=== PATIENT | male | born 1990 | race Caucasian/White ===

== ENCOUNTER 2018-04-14 18:24 | Emergency (ER) | payer OTHER ==
[~2018-04-14] VITALS: Ht 188 cm; Wt 68.0 kg
[2018-04-14] MEDS ORDERED: LISINOPRIL20 MG PO (18:55)
[2018-04-14] MEDS ORDERED: LANTUS100 UNITS/ (18:56)
[2018-04-14] MEDS ORDERED: HUMALOG100 UNIT/2 SUB-Q (18:57)
[2018-04-14] MEDS ORDERED: NORCO 7.5-3251 EACH PO (18:58)
[2018-04-14] MEDS ORDERED: CEPHALEXIN500 MG PO (22:35)
[2018-04-14] MEDS ORDERED: METOPROLOL TART50 MG PO (22:35)
== END 2018-04-14 22:49 | disposition home or self-care (01) ==
LOC: ED 18:24
DX: R11.2 Nausea with vomiting, unspecified (principal); I10 Essential (primary) hypertension; E11.9 Type 2 diabetes mellitus without complications; F17.200 Nicotine dependence, unspecified, uncomplicated; Z88.5 Allergy status to narcotic agent; Z79.4 Long term (current) use of insulin; Z79.899 Other long term (current) drug therapy
CPT/HCPCS: 80053; 81001; 82010; 82800; 85025; 87088; 96361; 96374; 96375; 99284; J0696; J2270; J2405; J7030

== ENCOUNTER 2018-06-28 09:10 | Emergency (ER) | payer OTHER ==
[~2018-06-28] VITALS: Ht 188 cm; Wt 68.0 kg
--- OUTSIDE RECORDS SUMMARY | ~2018-06-28 | XMS | Encounter Summary ---
Demographics + + + | Address | [address] | | | [place] [address] | + + + | Home Phone | | + + + | Preferred Language | Unknown | + + + | Marital Status | Unknown | + + + | Episcopal Affiliation | Unknown | + + + | Race | Unknown | + + + | Ethnic Group | Unknown | + + + Author + + + | Author | [facility] | + + + | Organization | [facility] | + + + | Address | Unknown | + + + | Phone | Unavailable | + + + Support + + +---------+ + | Name | Relationship | Address | Phone | + + +---------+ + | Gia Ramos | ECON | Unknown | | + + +---------+ + Care Team Providers + +------+ + | Care Synthetic Department Supervisor Name | Role | Phone | + +------+ + | Erich Yates | PCP | | + +------+ + Encounter Details +--------+ + + + + | Date | Type | Department | Care Team | Description | +--------+ + + + + | 06/16/ | Orders Only | [facility] | Shannan Morales CMA | Chronic kidney | | 2018 | | [address] | | disease, stage III | | | | [address] | | (moderate) (Primary | | | | [place] [address] | | Dx) | | | | [phone] | | | +--------+ + + + [...] on file | | + + + as of this encounter Plan of Treatment +--------+ + + + + | Date | Type | Specialty | Care Team | Description | +--------+ + + + + | 07/25/ | Initial | Nephrology | Winston Whitman MD | | | 2018 | consult | | [address] | | | | | | [address] [place], [place] | | | | | | [address] | | | | | | | | +--------+ + + + + + +--------+ + + | Name | Priori | Associated Diagnoses | Order Schedule | | | ty | | | + +--------+ + + | Basic metabolic panel | Routin | Chronic kidney | Expected: | | | e | disease, stage III | 07/17/2018, Expires: | | | | (moderate) | 06/16/2019 | + +--------+ + + | CBC W/Auto Diff (Reflex to | Routin | Chronic kidney | Expected: | | Manual) | e | disease, stage III | 07/17/2018, Expires: | | | | (moderate) | 06/16/2019 | + +--------+ + + | Protein / creatinine ratio, urine | Routin | Chronic kidney | Expected: | | | e | disease, stage III | 07/17/2018, Expires: | | | | (moderate) | 06/16/2019 | + +--------+ + + | Uric acid | Routin | Chronic kidney | Expected: | | | e | disease, stage III | 07/17/2018, Expires: | | | | (moderate) | 06/16/2019 | + +--------+ + + | Urinalysis (reflex to micro) | Routin | Chronic kidney | Expected: | | | e | disease, stage III | 07/17/2018, Expires: | | | | (moderate) | 06/16/2019 | + +--------+ + + as of this encounter Visit Diagnoses + + | Diagnosis | + + | Chronic kidney disease, stage III (moderate) (HCC) - Primary | + + | Chronic kidney disease, Stage III (moderate) | + +"
--- OUTSIDE RECORDS SUMMARY | ~2018-06-28 | XMS | Encounter Summary ---
Demographics + + + | Address | [address] | | | [place] [address] | + + + | Home Phone | | + + + | Preferred Language | Unknown | + + + | Marital Status | Unknown | + + + | Religion Affiliation | Unknown | + + + | Race | Unknown | + + + | Ethnic Group | Unknown | + + + Author + + + | Author | [facility] | + + + | Organization | [facility] | + + + | Address | Unknown | + + + | Phone | Unavailable | + + + Support + + +---------+ + | Name | Relationship | Address | Phone | + + +---------+ + | Gia Ramos | ECON | Unknown | | + + +---------+ + Care Team Providers + +------+ + | Care Market Development Specialist Name | Role | Phone | + +------+ + | Erich Yates | PCP | | + +------+ + Reason for Visit +--------+ + | Reason | Comments | +--------+ + | Other | Referral from Savage Yates PA-C | +--------+ + Encounter Details +--------+ + + + + | Date | Type | Department | Care Team | Description | +--------+ + + + + | 06/01/ | Documentati | [facility] | Winston Whitman MD | Other (Referral from | | 2018 | on Only | [address] | [address] | Savage Yates | | | | [address] | [address] [place], [place] | [place]) | | | | [place] [address] | [address] | | | | | [phone] | | | +--------+ + + + [...] | | | | | | [address] [place] | | | | | | [address] | | | | | | | | +--------+ + + + + as of this encounter Visit Diagnoses Not on filein this encounter"
--- OUTSIDE RECORDS SUMMARY | ~2018-06-28 | XMS | Encounter Summary ---
Demographics + + + | Address | [address] | | | [place] [address] | + + + | Home Phone | | + + + | Preferred Language | Unknown | + + + | Marital Status | Unknown | + + + | Latter Day Affiliation | Unknown | + + + | Race | Unknown | + + + | Ethnic Group | Unknown | + + + Author + + + | Author | [facility] | | | and [place]ana | + + + | Organization | [facility] | | | and [place] | + + + | Address | Unknown | + + + | Phone | Unavailable | + + + Care Team Providers + +------+ + | Care Lacemaker Name | Role | Phone | + +------+ + | Erich Yates | PCP | | + +------+ + Encounter Details +--------+ + + + + | Date | Type | Department | Care Team | Description | +--------+ + + + + | 05/15/ | Abstract | [facility] | Divya, | | | 2017 | | GASTROENTEROLOGY | MD [address] | | | | | [address] [facility] | Hillary BOBBY | | | | | [address] [place], [place] | [place] [address] | | | | | [address] | | | | | | [phone] | | | +--------+ + + + [...] this encounter Plan of Treatment Not on fileas of this encounter Visit Diagnoses Not on filein this encounter"
--- OUTSIDE RECORDS SUMMARY | ~2018-06-28 | XMS | Clinical Summary ---
Demographics + + + | Address | [address] | | | [place] [address] | + + + | Home Phone | | + + + | Preferred Language | Unknown | + + + | Marital Status | Unknown | + + + | Mormon Affiliation | Unknown | + + + | Race | Unknown | + + + | Ethnic Group | Unknown | + + + Author + + + | Author | [facility] | | | and Mauriceana | + + + | Organization | [facility] | | | and [facility] | + + + | Address | Unknown | + + + | Phone | Unavailable | + + + Care Team Providers + +------+ + | Care Shelter Director Name | Role | Phone | + [...] | | + + +-------+---------+------+------+-------+ | insulin lispro | Inject under the | | | | | Activ | | (HUMALOG [...] | | | + + +-------+---------+------+------+-------+ | phytonadione | Take 100 mcg by | | | | | Activ | | (PHYTONADIONE) 100 | mouth 2 times daily. | | | | | e | | MCG TABS | | | | | | | + + +-------+---------+------+------+-------+ | insulin glargine | Inject 40 Units | | | | | Activ | | (LANTUS SOLOSTAR) | under the skin | | | | | e | | 100 units/mL | nightly. | | | | | | | injection (pen) | | | | | | | + + +-------+---------+------+------+-------+ | Furosemide (LASIX | Take 1 tablet by | | | | | Activ | | PO) | mouth 2 times daily. | | | | | e | + + +-------+---------+------+------+-------+ | metoprolol | Take 50 mg by mouth | | | | | Activ | | tartrate (LOPRESSOR) | 2 times daily. | | | | | e | | 50 mg tablet | | | | | | | + + +-------+---------+------+------+-------+ | ondansetron | Take 8 mg by mouth | | | | | Activ | | (ZOFRAN ODT) 8 mg | every 8 hours as | | | | | e | | disintegrating | needed for Nausea. | | | | | | | tablet | | | | | | | + + +-------+---------+------+------+-------+ Active Problems Not on file Encounters +--------+ + + + + | Date | Type | Specialty | Care Team | Description | +--------+ + + + + | 05/15/ | Abstract | | Provider, | | | 2018 | | | Historical, MD | | +--------+ + + + + from Last 3 Months Family History + + + + + [...] + + + + + | Congenital Heart | Other | [place] | | | Disease | | her | | + + [...] + + +--------+ + Social History + +-------+ +--------+------+ | [...] on file | | + + + Plan of Treatment + + + + + | Health Maintenance | Due Date | Last Done | Comments | + + + + + | Vaccine: | | | | | Dtap/Tdap/Td (1 - | 9 | | | | Tdap) | | | | + + + + + | Vaccine: | | | | | Pneumococcal 19-64 | 9 | | | | (PPSV23 only) Medium | | | | | Risk (1 of 1 - | | | | | PPSV23) | | | | + + + + + | Vaccine: Influenza | | | | | (#1) | 8 | | | + + + + + Results Not on filefrom Last 3 Months Insurance + +--------+ +--------+ +---------+ | Payer | Benefi | Subscriber | Type | Phone | Address | | | t Plan | ID | | | | | | / | | | | | | | Group | | | | | + +--------+ +--------+ +---------+ | [employer] | MODA | [id number] | Medica | [phone] | | MEDICAID HMO | HEALTH | | id | [id number] | | | | [place] | | | | | | | [place] | | | | | + +--------+ +--------+ +---------+ + +--------+ +--------+ + + | Guarantor Name | Accoun | Relation to | Date | Phone | Billing Address | | | t Type | Patient | of | | | | | | | | | | + +--------+ +--------+ + + | NGOC MARQUEZ | Person | Self | [birth year] | Home: | [address] | | | al/Fam | | 1990 | [phone] | [address] [place] | | | [place] | | | [phone] | [address] | + +--------+ +--------+ + +"
--- OUTSIDE RECORDS SUMMARY | ~2018-06-28 | XMS | Encounter Summary ---
Demographics + + + | Address | [address] | | | [place] [address] | + + + | Home Phone | | + + + | Preferred Language | Unknown | + + + | Marital Status | Unknown | + + + | Buddhism Affiliation | Unknown | + + + | Race | Unknown | + + + | Ethnic Group | Unknown | + + + Author + + + | Author | [facility] | + + + | Organization | [facility] | + + + | Address | Unknown | + + + | Phone | Unavailable | + + + Support + + +---------+ + | Name | Relationship | Address | Phone | + + +---------+ + | Gia Ramos | ECON | Unknown | | + + +---------+ + Care Team Providers + +------+ + | Care Health Care Coach Name | Role | Phone | + [...] | [address] | [address] [place], [place] | [place]) | | | | [place] [address] | [address] | | | | | [phone] | | | +--------+ + + + [...] [place] | | | | | | [address] | | | | | | | | +--------+ + + + + as of this encounter Visit Diagnoses Not on filein this encounter"
--- OUTSIDE RECORDS SUMMARY | ~2018-06-28 | XMS | Clinical Summary ---
Demographics + + + | Address | [address] | | | [place] [address] | + + + | Home Phone | | + + + | Preferred Language | Unknown | + + + | Marital Status | Unknown | + + + | Jain Affiliation | Unknown | + + + | Race | Unknown | + + + | Ethnic Group | Unknown | + + + Author + + + | Author | [facility] | + + + | Organization | [facility] | + + + | Address | Unknown | + + + | Phone | Unavailable | + + + Support + + +---------+ + | Name | Relationship | Address | Phone | + + +---------+ + | Gia Ramos | ECON | Unknown | | + + +---------+ + Care Team Providers + +------+ + | Care Agricultural Service Worker Name | Role | Phone | [...] + | 06/16/ | Orders Only | | Shannan Morales CMA | Chronic kidney | | 2018 | | | | disease, stage III | | | | | | (moderate) (Primary | | | | | | Dx) | +--------+ + + + + | 06/01/ | Documentati | | Winston Whitman MD | Other (Referral from | | 2017 | on Only | | | Savage Yates | | | | | | [place]) | +--------+ + + + + from Last 3 Months Social History + +-------+ +--------+------+ | Tobacco [...] | + + + Plan of Treatment +--------+ + + + + | Date | Type | Specialty | Care Team | Description | +--------+ + + + + | 07/25/ | Initial | | Winston Whitman MD | | | 2017 | consult | | [address] [...] | CBC W/AUTO DIFF | Routin | 05/15/2018 | | Results for this | | (REFLEX TO MANUAL) | e | 1:45 PM | | procedure are in the | | | | PDT | | results section. | + +--------+ + + + from Last 3 Months Results Albumin/Creat Ratio (05/24/2018 9:25 AM) + + + + + | Component | Value | Ref Range | Performed At | + + + + + | ALBUMIN/CREAT RATIO | 2,275.2 (A) | 0 - 30 | [facility] | | | | | LABORATORY | + + + + + + + | Specimen | + + | Urine | + + + + + + + | Performing | Address | City/State/Zipcode | Phone Number | | Organization | | | | + + + + + | [facility] | [address] | [place] [address] | | | LABORATORY | 13 | | | + + + + + Urine microscopic only (05/24/2018 9:25 AM) + + + + + | Component | Value | Ref Range | Performed At | + + + + + | COLOR UA | Yellow | | [facility] | | | | | LABORATORY | + + + + + | CLARITY | Clear | | [facility] | | | | | LABORATORY | + + + + + | Specific [place], UA | 1.013 | 1.005 - 1.030 | [facility] | | | | | LABORATORY | + + + + + | LEUKOCYTE ESTERASE | Trace | | [facility] | | | | [...] + | BLOOD | Negative | | [facility] | | | | | LABORATORY | + + + + + | KETONES | Negative | | [facility] | | | | | LABORATORY | + + + + + | BILIRUBIN | Negative | | [facility] | | | | | LABORATORY | + + + + + | GLUCOSE | Negative | | [facility] | | | | | LABORATORY | + + + + + + + | Specimen | + + | Urine | + + + + + | Narrative | Performed At | + + + | Casts: Hyaline 1+ WBC's: 5 RBC's: 5 Epithelial: Squamous 1+ | [facility] | | | LABORATORY | + + + + + + + + | Performing | Address | City/State/Zipcode | Phone Number | | Organization | | | | + + + + + | [facility] | [address] | [place] [address] | | | LABORATORY | 13 | | | + + + + + CBC W/Auto Diff (Reflex to Manual) (05/24/2018 9:25 AM)Only the most recent of 2 results w ithin the time period is included. + + + + + | Component | Value | Ref Range | Performed At | + + + + + | WBC | 9.1 | 4.5 - 11.0 10^3/mL | [facility] [...] + + + + | HCT | 36.3 (A) | 41 - 50 [...] 32 | 30 - 36 g/dL | [facility] | | | | | LABORATORY | + + + + + | PLT | 244 | 140 - 440 K/ L | [facility] | | | | | LABORATORY | + + + + + | RDW SD | 14.6 | 10.5 - 15.0 % | [facility] | | | | | LABORATORY | + + + + + | MPV | | fL | [facility] | | | | | LABORATORY | + + + + + | DIFF TYPE | | | [facility] | | | | | LABORATORY | + + + + + | NEUTROPHILS | | % | [facility] | | | | | LABORATORY | + + + + + | LYMPHOCYTES | | % | [facility] | | | | | LABORATORY | + + + + + | MONOCYTES | | % | [facility] | | | | | LABORATORY | + + + + + | EOSINOPHILS | | % | [facility] | | | | | LABORATORY | + + + + + | BASOPHILS | | % | [facility] | | | | [...] [facility] | [address] | [place] [address] | | | LABORATORY | 13 | | | + + + + + Comprehensive metabolic panel (05/24/2018 9:25 AM)Only the most recent of 2 results within the time period is included. + + + + + | Component | Value | Ref Range | Performed At | + + + + + | GLUCOSE | 98 | 70 - 100 mg/dL | [facility] | | | | | LABORATORY | + + + + + | BUN | 45 (A) | 6 - 23 mg/dL | [facility] | | | | | LABORATORY | + + + + + | CREATININE | 1.44 (A) | 0.6 - 1.35 mg/dL | [facility] | | | | | LABORATORY | + + + + + | BUN/CREAT | 31.3 (A) | 6.0 - 28.6 | [facility] | | | | | LABORATORY | + + + + + | CALCIUM | 9.3 | 8.5 - 10.3 mg/dL | [facility] | | | | | LABORATORY | + + + + + | TOTAL PROTEIN | 6.2 | 6.0 - 8.3 g/dL | [facility] | | | | | LABORATORY | + + + + + | Albumin | 3.3 (A) | 3.5 - 5.0 | [facility] | | | | | LABORATORY | + + + + + | GLOBULIN | 2.9 | 1.8 - 3.5 | [facility] | | | | | LABORATORY | + + + + + | A/G | 1.1 | 1.1 - 2.4 | [facility] | | | | | LABORATORY | + + + + + | TBIL | 0.3 | 0.0 - 1.2 mg/dL | [facility] | | | | | LABORATORY | + + + + + | ALK PHOS | 77 | 31 - 120 | [facility] | | | | | LABORATORY | + + + + + | ALT | 13 | 7 - 52 U/L | [facility] | | | | | LABORATORY | + + + + + | AST | 19 | 13 - 39 U/L | [facility] | | | | | LABORATORY | + + + + + | SODIUM | 139 | 132 - 143 mmol/L | [facility] | | | | | LABORATORY | + + + + + | POTASSIUM | 4.8 | 3.6 - 5.1 mmol/L | [facility] | | | | | LABORATORY | + + + + + | CHLORIDE | 102 | 95 - 112 mmol/L | [facility] | | | | | LABORATORY | + + + + + | CO2 | 24 | 19 - 31 mmol/L | [facility] | | | | | LABORATORY | + + + + + | ANION GAP AGAP | 17.8 | 7 - 21 mmol/L | [facility] | | | | | LABORATORY | + + + + + | EGFR | 58 (A) | 60 mg/dL | [facility] | | | | | LABORATORY | + + + + + + + | Specimen | + + | Blood | + + + + + + + | Performing | Address | City/State/Zipcode | Phone Number | | Organization | | | | + + + + + | [facility] | [address] | [place] [address] | | | LABORATORY | 13 | | | + + + + + Glycohemoglobin A1c (05/15/2018 1:45 PM) + +-------+ + + | Component | Value | Ref Range | Performed At | + +-------+ + + | HEMOGLOBIN A1C | 9.8 | % | [facility] | | | | | LABORATORY | + +-------+ + + + + | Specimen | + + | Blood | + + + + + + + | Performing | Address | City/State/Zipcode | Phone Number | | Organization | | | | + + + + + | [facility] | [address] | [place] [address] | | | LABORATORY | 13 | | | + + + + + from Last 3 Months Insurance + +--------+ +------+-------+ + | Payer | Benefi | Subscriber | Type | Phone | Address | | | t Plan | ID | | | | | | / | | | | | | | Group | | | | | + +--------+ +------+-------+ + | MEDICAID | [employer] | [id number] | | | [address] | | | N | | | | [place], [place] | | | [place] | | | | [address] | | | OPERATIONS REPRESENTATIVE | | | | | + +--------+ [...] Self | [birth year] | Home: | [address] | | | al/Fam | | 1990 | [phone] | [address] [place], | | | lucian | | | 1953 | [place] [address] | + +--------+ +--------+ + +"
--- OUTSIDE RECORDS SUMMARY | ~2018-06-28 | XMS | Clinical Summary ---
Demographics + + + | Address | [address] | | | [place] [address] | + + + | Home Phone [...] | + + + + + | GLORIA JOHNSON | ECON | [address] | | | | | [place] | | | | | [address] | | + + + + + Care Team Providers + +------+ + | Care Earth Auger Operator Name | Role | Phone | + +------+ + | Erich Yates PA-C | PP | | + +------+ + Source Comments VERITO is fully live on both [facility] and [facility] InPatient.[facility] Allergies + + + + + + | Active Allergy | Reactions | Severity | Noted | Comments | | | | | Date | | + + + + + + | Codeine | Nausea and Vomiting | | 12/06/19 | | | | | | 03 | | + + + + + + Current Medications + + + +---------+------+------+-------+ | Prescription | Sig. | Disp. | [...] U-100 | recommended by | | | 03/15 | | e | | (BD ULTRAFINE [...] Take 40 mg by mouth | | | | | Activ | | oral capsule,delayed | once daily. | | | | | e | | release(DR/EC) | | | | | | | + + + +---------+------+------+-------+ | ondansetron ODT 8 | Dissolve 8 mg in | | | | | Activ | | mg oral | mouth every twelve | | | | | e | | tablet,disintegratin | hours as needed. | | | | | | | g | | | | | | | + + + +---------+------+------+-------+ | metoclopramide HCl | Take 10 mg by mouth | | | | | Activ | | 10 [...] day in divided doses | | | 20 | | e | | unit/mL subcutaneous | as directed | | | 15 | | | | solution | | | | | | | + + + +---------+------+------+-------+ Active Problems + + + | Problem | Noted Date | + + + | Hyperglycemia due to type 1 diabetes mellitus (HCC) | 09/17/2015 | + + + | Hypertension | 08/27/2015 | + + + | Diabetic gastroparesis associated with type 1 diabetes mellitus | 08/27/2015 | | (HCC) | | + + + | Acute on chronic epigastric pain | 08/26/2015 | + + + | Fissure in skin of foot | 08/26/2015 | + + + | Diabetic ketoacidosis without coma associated with type 1 | 08/25/2015 | | diabetes mellitus (HCC) | | + + + | Type 1 diabetes mellitus ([facility]) | 11/03/2006 | + + + + [...] | 5 | + + + + Social History + [...] Pressure | 126/64 | 09/15/2015 9:42 AM PST | + + + + | Pulse | 110 | 09/15/2015 9:42 AM PST | + + + + | Temperature | 36.7 C (98.1 F) | 08/27/2015 12:34 PM PST | + + + + | Respiratory Rate | 18 | 08/27/2015 12:34 PM PST | + + + + | Oxygen Saturation | 99% | 08/27/2015 12:34 PM PST | + + + + | Inhaled Oxygen | - | - | | Concentration | | | + + + + | Weight | 69.4 kg (153 lb 1.6 | 09/15/2015 9:42 AM PST | | | oz) | | + + + + | Height | 188 cm (6' 2") | 09/15/2015 9:42 AM PST | + + + + | Body Mass Index | 19.66 | 09/15/2015 9:42 AM PST | + + + + Plan of Treatment + + + + + | Health Maintenance | Due Date | Last Done | Comments | + + + + + | DIABETES | | | | | SELF-MANAGEMENT | 0 | | | | EDUCATION | | | | + + + + + | MONOFILAMENT FOOT | | | | | EXAM | 0 | | | + + + + + | DIABETIC EYE EXAM | | | | | | 0 | | | + + + + + | HEMOGLOBIN A1C | | 11/01/2007, 11/02/2006, | | | | 8 | 08/27/2005, Additional history | | | | | exists | | + + + + + | Pneumococcal (Adult) | | | | | (1 of 1 - PPSV23) | 9 | | | + + + + + | URINE MICROALBUMIN | | 11/26/2015, 11/02/2006 | | | | 7 | | | + + + + + | CREATININE | | 12/03/2015, 11/21/2015, | | | | 7 | 10/27/2015, Additional history | | | | | exists | | + + + + + | INFLUENZA VACCINE | | | | | (FLU SHOT) | 8 | | | + + + + + | CHOLESTEROL | | 08/26/2015 | | | SCREENING | 0 | | | + + + + + Results Not on filefrom Last 3 Months Insurance + +--------+ +--------+-------+---------+ | Payer | Benefi | Subscriber | Type | Phone | Address | | | t Plan | ID | | | | | | / | | | | | | | Group | | | | | + +--------+ +--------+-------+---------+ | ASSET PROTECTION REPRESENTATIVE MEDICAID | ASSET PROTECTION REPRESENTATIVE | [id number] | Medica | | | | | [place] | | id | | | | | [place] | | | | | + +--------+ +--------+-------+---------+ + +--------+ +--------+ + + | Guarantor Name | Accoun | Relation to | Date | Phone | Billing Address | | | t Type | Patient | of | | | | | | | | | | + +--------+ +--------+ + + | BROOKS MARQUEZ II | Person | Self [birth year] | Home: | [address] | | [place] | andreea/Fam | | 1990 | [phone] | [address] [place] | | | [place] | | | [phone] | [phone] | + +--------+ +--------+ + +
--- OUTSIDE RECORDS SUMMARY | ~2018-06-28 | XMS | Clinical Summary ---
Demographics + + + | Address | [address] | | | [place] [address] | + + + | Home Phone | | + + + | Preferred Language | Unknown | + + + | Marital Status | Unknown | + + + | Orthodox Affiliation | Unknown | + + + | Race | Unknown | + + + | Ethnic Group | Unknown | + + + Author + + + | Author | [facility] | | | and [place] | + + + | Organization | [facility] | | | and [place] | + + + | Address | Unknown | + + + | Phone | Unavailable | + + + Care Team Providers + +------+ + | Care Ethnic Origins Teacher Name | Role | Phone | [...] | [employer] | [employer] | [id number] | Medica | [phone] | | MEDICAID HMO | HEALTH [...] | [birth year] | Home: | [address] | | | al/Fam | | 1990 | [phone] | [address] [place] | | | [place] | | | [phone] | [phone] | + +--------+ +--------+ + +"
--- OUTSIDE RECORDS SUMMARY | ~2018-06-28 | XMS | Clinical Summary ---
Demographics + + + | Address | [address] | | | [place] [address] | + + + | Home Phone | | + + + | Preferred Language | Unknown | + + + | Marital Status | Unknown | + + + | Mormonism Affiliation | Unknown | + + + | Race | Unknown | + + + | Ethnic Group | Unknown | + + + Author + + + | Author | [facility] | + + + | Organization | [facility] | + + + | Address | Unknown | + + + | Phone | Unavailable | + + + Support + + +---------+ + | Name | Relationship | Address | Phone | + + +---------+ + | Gia Ramos | ECON | Unknown | | + + +---------+ + Care Team Providers + +------+ + | Care Bulk Clerk Name | Role | Phone | [...] | [address] | [place] [address] | | | LABORATORY | 13 | [...] + + + + + | Specific [place], UA | 1.013 | 1.005 - 1.030 [...] | [address] | [place] [address] | | | LABORATORY | 13 | [...] | [address] | [place] [address] | | | LABORATORY | 13 | [...] | [address] | [place] [address] | | | LABORATORY | 13 | [...] | [address] | [place] [address] | | | LABORATORY | 13 | [...] +------+-------+ + | MEDICAID | EASTER | [id number] | | | [address] | | | N | | | | [place], [place] | | | [place] | | | | [address] | | | [employer] | | | | | + +--------+ [...] Self | [birth year] | Home: | [address] | | | al/Fam | | 1990 | [phone] | [address] [place], | | | [place] | | | [address] | [place] [address] | + +--------+ +--------+ + +"
--- OUTSIDE RECORDS SUMMARY | ~2018-06-28 | XMS | Clinical Summary ---
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 | Role | Phone | + +------+ + | Erich Yates PA-C | PP | | + +------+ + Source Comments VERITO is fully live on both [facility] and [facility] InPatient.[facility] Allergies + + + + + [...] + + | Type 1 diabetes mellitus ([facility]) | 11/03/2006 | + + + + [...] | | | + +--------+ +--------+-------+---------+ | MATERIAL CHASER MEDICAID | MATERIAL CHASER | xxxxxxxx | Medica | | | [...] Self | [birth year] | Home: | [address] | | [place] | andreea/Fam | | 1990 | [phone] | [address] [place] | | | lucian | | | [phone] | + +--------+ +--------+ + +
--- OUTSIDE RECORDS SUMMARY | ~2018-06-28 | XMS | Encounter Summary ---
Demographics + + + | Address | [address] | | | [place] [address] | + + + | Home Phone | | + + + | Preferred Language | Unknown | + + + | Marital Status | Unknown | + + + | Yazidism Affiliation | Unknown | + + + | Race | Unknown | + + + | Ethnic Group | Unknown | + + + Author + + + | Author | [facility] | | | and [place] | + + + | Organization | [facility] | | | and [place] | + + + | Address | Unknown | + + + | Phone | Unavailable | + + + Care Team Providers + +------+ + | Care Casual Shoe Inspector Name | Role | Phone | + +------+ + | Erich Yates | PCP | | + +------+ + Encounter Details +--------+ + + + + | Date | Type | Department | Care Team | Description | +--------+ + + + + | 05/15/ | Abstract | [facility] | Divya, | | | 2017 | | GASTROENTEROLOGY | MD Vah[address] | | | | | [address] [facility] | Hillary BOBBY | | | | | [address] [place], [place] | [place] [address] | | | | | [address] | | | | | | [phone] | | | +--------+ + + + [...]
--- OUTSIDE RECORDS SUMMARY | ~2018-06-28 | XMS | Encounter Summary ---
Demographics + + + | Address | [address] | | | [place] [address] | + + + | Home Phone | | + + + | Preferred Language | Unknown | + + + | Marital Status | Unknown | + + + | Mormonism Affiliation | Unknown | + + + | Race | Unknown | + + + | Ethnic Group | Unknown | + + + Author + + + | Author | [facility] [employer] [facility] | + + + | Organization | [facility] | + + + | Address | Unknown | + + + | Phone | Unavailable | + + + Support + + +---------+ + | Name | Relationship | Address | Phone | + + +---------+ + | Gia Ramos | ECON | Unknown | | + + +---------+ + Care Team Providers + +------+ + | Care Mechanic'S Assistant Name | Role | Phone | [...] (Primary | | | | [place] [address] | | Dx) | | | | [phone] | | | +--------+ + + + [...] | | | | | | [address] [place], [place] | | | | | | [address] | | | | | | | [...]
[~2018-06-28 09:10] MED LIST: CEPHALEXIN500 MG PO; HUMALOG100 UNIT/2 SUB-Q; LANTUS100 UNITS/; LISINOPRIL20 MG PO; METOPROLOL TART50 MG PO; NORCO 7.5-3251 EACH PO; OMEPRAZOLE20 MG PO; PRINIVIL10 MG PO
[2018-06-28] MEDS ORDERED: ZANTAC150 MG PO (09:23)
== END 2018-06-28 09:30 | disposition home or self-care (01) ==
LOC: ED 09:10
DX: L98.9 Disorder of the skin and subcutaneous tissue, unspecified (principal)

== ENCOUNTER 2018-10-29 15:33 | Inpatient (IN) | payer OTHER ==
[~2018-10-29] VITALS: Ht 188 cm; Wt 65.9 kg
[~2018-10-29 15:33] MED LIST changes: +FLOMAX0.4 MG PO; +ZANTAC150 MG PO; +ZOFRAN4 MG PO
--- OUTSIDE RECORDS SUMMARY | 2018-10-29 15:36 | XMS ---
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: Unknown ROSA JASSO [facility] Current PHONE: Unknown Marlena has no Care Guidelines for this patient. Care History Medical/Surgical 05/01/2018 [facility] referred patient to [facility] case management team. - Further education on medications/chronic pain education is needed. - [facility] case management can be reached at [phone]. E.D. VISIT COUNT (12 MO.) 6 [facility] Perez TOTAL 6 NOTE: Visits indicate total known visits. 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 - Calculus of kidney with calculus of ureter 09/13/2018 05:35 [facility] [place] TYPE: Emergency COMPLAINT: - R FLANK PAIN DIAGNOSES: - 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 - Essential (primary) hypertension - Allergy status to narcotic agent status - Other nursing home (current) drug therapy - Type 1 diabetes mellitus without complications - Hydronephrosis with renal and ureteral calculous obstruction - Chronic pain syndrome - Unspecified abdominal pain - Nicotine dependence, unspecified, uncomplicated 06/28/2018 09:10 [facility] [place] TYPE: Emergency COMPLAINT: - POSS INFECTION/WOUND CHECK NON INJURY DIAGNOSES: - Disorder of the skin and subcutaneous tissue, unspecified 04/28/2018 11:27 [facility] [place] TYPE: Emergency COMPLAINT: - ABD PAIN DIAGNOSES: - 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
[2018-10-29] MEDS ORDERED: CEFUROXIME500 MG PO (16:21)
[2018-10-29] MEDS ORDERED: CLEOCIN HCL300 MG PO (16:21)
--- NOTE | 2018-10-29 22:09 | NUR ---
10/29/182208 Beth Johnson 1584 PT ARRIVED IN PACU WIDE AWAKE. BLOOD SUGAR ON ARRIVAL 152. SPINAL LEVEL L-2. NO C/O'S.
--- NOTE | 2018-10-29 22:45 | NUR ---
PT ARRIVED TO UNIT VIA STRETCHER FROM PACU. PT A&O X4, NOTED TO BE WITHDRAWN, STATES "I'M TRYING TO PROCESS EVERYTHING." PT HYPERTENSIVE AT 159/104 AND IN SINUS TACH AT 111. RESPIRATION EVEN AND SHALLOW, SPO2 100% ON ROOM AIR, LUNG SOUNDS CLEAR THROUGHOUT. BOWEL TONES ACTIVE X4, PT NOTED TO BE INCONTINENT OF STOOL IN PACU, ATTEND IN PLACE, DENIES NAUSEA. REPORTS NUMBESS TO BLE. RLE NOTED TO HAVE SLIGHT REDDNESS IN UPPER THIGH THAT APPEARS TO BE RESOLVING, NO EDEMA NOTED. SURGICAL SITE COVERED WITH ABD PAD, CAST PADDING, AND HANS WRAP. HANS WRAP PULLED TO SIDE FOR ASSESSMENT, DRESSING C/D/I. DENIES PAIN AT THIS TIME. EDUCATION PROVIDED ON PAIN MANAGEMENT. UPDATED ON PLAN OF CARE, ALL QUESTIONS ANSWERED. ORIENTED TO ROOM AND CALL LIGHT. DENIES OTHER NEEDS.
--- NOTE | 2018-10-29 23:30 | NUR ---
PT RESTING IN BED WITH EYES CLOSED, RESPIRATIONS EVEN AND SHALLOW, 100% ON ROOM AIR. NO ACUTE DISTRESS NOTED.
--- NOTE | 2018-10-30 00:45 | NUR ---
CALL LIGHT ANSWERED, PT C/O 05/05 CONSTANT ACHE/CRAMP RLE PAIN, 0.5 MG IV DILAUDID GIVEN. SURGICAL SITE ASSESSED, HANS WRAP PULLED BACK, CASTING PADDING C/D/I, NO EDEMA OR INCREASED REDDNESS NOTED. WILL CONTINUE TO MONITOR.
--- NOTE | 2018-10-30 01:34 | NUR ---
PT STATES PAIN NOT IMPROVED AFTER 0.5 MG IV DILAUDID, ADDITIONAL 0.5 MG DILAUDID GIVEN. WILL CONTINUE TO MONITOR. ICE PACK IN PLACE.
--- NOTE | 2018-10-30 02:22 | NUR ---
IN TO GIVE PT BELKIS MEDS GABAPENTIN AND TYLENOL PO. C/O 05/05 THROBBING RIGHT LEG PAIN. 0.5 IV DILAUDID GIVEN. INSULIN ALSO GIVEN FOR BLOOD SUGAR 142.
--- NOTE | 2018-10-30 03:00 | NUR ---
PT CONTINUES TO HAVE 8/10 RLE PAIN. SEVERAL DOSES OF 0.5 MG DILAUDID GIVEN WITHOUT RELIEF. EDUCATION PROVIDE DON MANAGEMENT. PT AGREABLE TO DRINK ENSURE AND TAKE PO MEDICATION. 10 MG OXYCODONE GIVEN WITH ENSURE. WILL CONTINUE TO MONITOR FOR NAUSEA AND PAIN.
--- NOTE | 2018-10-30 04:30 | NUR ---
PT DENIES IMPROVEMENT IN PAIN. REQUESTING TO USE BSC. PT 2PA TO BSC, DID NOT TOLERATE WELL. CALL LIGHT WITHIN REACH.
--- NOTE | 2018-10-30 05:05 | NUR ---
PT ASSISTED TO BSC WITH MAX 2 PERSON ASSIST. PT HAD LARGE LOOSE SEMI LIQ STOOL, NO VOID. ASSISTED BACK TO BED WITH PT USING WALKER WITH BETTER RESULTS. C/O PAIN R LEG 8/10. GIVEN 0.5MG DILAUDID IV.
--- NOTE | 2018-10-30 06:00 | NUR ---
PT HAS NOT VOIDED, ATTEMPTED TO USE URINAL, UNABLE TO VOID. BLADDER SCAN COMPLETED, 625ML NOTED. PHONE TO DR. CAROLINA. PER PROVIDER, BROWN TO BE PLACED IF UNABLE TO VOID.
--- NOTE | 2018-10-30 07:30 | NUR ---
PT RESTING IN BED WITH HIS MOTHER AT THE BEDSIDE. PT IS EMOTIONAL AT TIMES. PT CALLS APPROPRAITELY. WILL CONTINUE TO CLOSELY MONITOR.
--- NOTE | 2018-10-30 08:00 | NUR ---
PT ASSESSMENT COMPLETED. PT WOUND IS C/D/I. WILL LEAVE DRESSING ON PER MD BAGLEY. PT IS WITHDRAWN AT TIMES. PT IS ABLE TO MOVE HIS LEFT LEG WITH NO ISSUES AND MINIMAL MOVEMNET OF RIGHT ABOVE KNEE MOVEMENT D/T PAIN. WILL GIVE PRN PAIN MEDICATION. SPOKE WITH PT ABOUT GETTING A BROWN. PT IS THINKING ABOUT IT AT THIS TIME. WILL ALLOW SOME TIME TO PROCESS SITUATION.
--- NOTE | 2018-10-30 09:30 | OR ---
[facility] [address] [place], [place] [address] Signed DATE OF OPERATION: 10/29/2018 SURGEON: Stefano Wong MD PREOPERATIVE DIAGNOSIS: Necrotizing fasciitis, right foot and ankle. POSTOPERATIVE DIAGNOSIS: Necrotizing fasciitis, right foot and ankle. PROCEDURE PERFORMED: Right below-knee amputation. ANESTHESIA: General. SPECIMENS: Amputated right lower leg. COMPLICATIONS: There were no intraoperative complications. BLOOD LOSS: Minimal. TOURNIQUET TIME: About 45 minutes. WHAT WAS DONE: The patient was taken to the operating room. After anesthesia was induced and airway secured, the patient was positioned, prepped and draped in a routine sterile fashion. The leg was mapped out and we outlined a 5-3/4 inch bony stump off the medial tibial plateau. We then marked the leg with equal anterior and posterior flaps off this 5-3/4 inch bony stump. We then made a skin incision anteriorly and posteriorly. The anterior skin flap was then retracted to the level of the intended bony resection. We passed a curved clamp underneath the anterior compartment muscles and divided them with electrocautery. The anterior interosseous nerve, artery, and vein were identified. The artery and vein were doubly ligated with silk suture. The nerve was transected and allowed to retract. We then transected the fibula about a centimeter proximal to the anticipated level of tibial resection. We then transected the tibia and then beveled Electronically Signed By: STEFANO WONG MD 10/30/18 0930 PATIENT NAME: NGOC COREA OPERATIVE REPORT DATE OF : [birth year] REPORT #: [id number] PHYSICIAN: STEFANO WONG MD PCP: SIL[facility]IA [facility]ISH REPORT IS CONFIDENTIAL AND NOT TO BE RELEASED WITHOUT AUTHORIZATION [facility] [address] [place], [place] [address] Signed the anterior edge. We then flexed the leg through the amputation site and developed the posterior flap. The posterior vessels and nerves were identified and doubly ligated with #1 silk suture and allowed to retract back into the stump. After fashioning the soft tissue portion with the gastroc aponeurosis, we drilled several holes in the anterior aspect of the tibia. We used multiple sutures of #2 FiberWire to pull the gastroc aponeurosis up to the drill holes in the anterior tibia. We then closed the medial and lateral fascial muscular flap with interrupted sutures of #0 Vicryl and closed the subcutaneous tissue similarly. The skin was closed with sherie. A bulky dressing was applied and the patient was placed in a compression dressing. He was awakened, taken to the recovery room where he arrived in stable condition. Counts were correct and antibiotic protocols were followed. MD TRACEY McbrideB/KRISTAL /[id number] Copies: ~ Electronically Signed By: STEFANO WONG MD 10/30/18 0930 PATIENT NAME: NGOC COREA OPERATIVE REPORT DATE OF : [birth year] REPORT #: [id number] PHYSICIAN: STEFANO WONG MD PCP: SIL[facility]IA [facility] REPORT IS CONFIDENTIAL AND NOT TO BE RELEASED WITHOUT AUTHORIZATION
--- NOTE | 2018-10-30 10:00 | NUR ---
PT HAD BROWN PLACED PER MD CAROLINA D/T RETENTION. PT TOLERATED IT WELL. PT WAS HESITANT TO GET A BROWN AT FIRST AND WANTED TO TRY MULTIPLE TIMES ON HIS OWN TO URINATE. PT RECENTLY HAD KIDNEY STONES REMOVED AND STENTS IN PLACE. BREAKFAST FINISHED. MEDICATIONS GIVEN. WILL CONTINUE TO CLOSELY MONITOR.
--- NOTE | 2018-10-30 11:59 | NUR ---
PT HAS HAD MULTIPLE VISITORS AND STAFF MEMBERS IN TO SEE HIM THIS MORNING. PHYSICAL THERPAPY, OCCUPATIONAL THERAPY, AND THE PHARMACIST HAVE ALL BEEN IN TO SEE THE PATIENT. LETTING PT REST AT THIS TIME. PT WAS ABLE TO GET UP TO THE CAMMODE WITH 2 PERSON ASSIST. PTS MOTHER IS IN THE ROOM TO SUPPORT HER SON. PT HAS TIMES OF INCREASED EMOTIONS. TALKED WITH PATIENT IT IS NORMAL TO GO THROUGH THE STAGES OF GRIEF. WILL CONTINUE TO SUPPORT AND CARE FOR PATIENT.
--- NOTE | 2018-10-30 13:29 | NUR ---
[facility] DISCUSSED WITH . NEW ORDER FOR PRN IMODIUM. PT STATES HE TAKES IMODIUM AT HOME OFTEN. THIS IS THE 2ND BM THE PT HAS HAD THIS SHIFT. PT WAS ABLE TO GET HIMSELF BACK TO BED ON HIS OWN. WILL CONTINUIE TO CLOSELY MONITOR.
--- NOTE | 2018-10-30 13:32 | NUR ---
PATIENTS PAIN IS NOT IMPROVING MUCH ADDED PRN DILAUDID. WILL MONITOR FOR OUTCOME. WILL CONTINUE TO CLOSELY MONITOR.
--- NOTE | 2018-10-30 13:36 | EKG ---
[facility] [address] [facility] [place], [place] [address] Signed Sinus tachycardia Otherwise normal ECG When compared with ECG of 19-SEP-2018 15:19, Nonspecific T wave abnormality now evident in Anterior leads Confirmed by MARY ANN CAROLINA DO ([id number]) on 10/30/2018 1:36:17 PM Electronically Signed By: MARY ANN CAROLINA DO 10/30/18 1336 PATIENT NAME: NGOC COREA Electrocardiogram DATE OF : 88 PHYSICIAN: MARY ANN CAROLINA DO REPORT #: [id number] REPORT IS CONFIDENTIAL AND NOT TO BE RELEASED WITHOUT AUTHORIZATION
--- NOTE | 2018-10-30 14:10 | NUR ---
UPDATED MD CAROLINA REGUARDING NO CULTURES DONE BEFORE PTS LEG WAS AMPUTATED. UPDATED REGUARDING URINE OUTPUT DECRESING THE LAST SEVERAL HOURS. NEW ORDERS PLACED WILL CONTINUE TO CLOSELY MONITOR.
--- NOTE | 2018-10-30 15:03 | NUR ---
PT IS IN BED, ALERT WITH HIS MOTHER AT . THE LAST DAY HAS BEEN SO VERY TRAUMATIC FOR PT. I KNOW HE IS SUFFERING EMOTIONALLY, INTRO MYSELF AND TOLD HIM I WOULD BE BACK AGAIN. HE NEEDED A BREAK FROM SO MANY STAFF IN. HE THANKED ME WELL HIS MOTHER. EXTENDED A BLESSISNG, WILL FOLLOW NEEDED
--- NOTE | 2018-10-30 15:56 | NUR ---
PT RESTING IN BED AT THIS TIME. PT STATES PAIN IS 7/10. GAVE PRN PAIN MEDICATION. PT DENIES ANY OTHER NEEDS AT THIS TIME. WILL CONTINUE TO CLOSELY MONITOR.
--- NOTE | 2018-10-30 18:04 | NUR ---
PER MD LABS ARE OKAY. GIVE NIGHTLY METOPROLOL NOW. WILL CONTINUE TO CLOSELY MONITOR.
--- NOTE | 2018-10-30 18:36 | NUR ---
PER PT REQUEST GAVE PRN IMODIUM FOR LOOSE STOOLS AND PRN ANXIETY MEDICATION. PT STATES HE FEELS LIKE IT HELPED A LOT EARLIER AND WOULD LIKE TO CONTINUE USING IT TO HELP. PT TOLERATED IT WELL. PT IS IN MUCH BETTER SPIRITS THIS EVENING AND STATES "I FEEL MUCH BETTER". PT TOOK A 2 HOUR NAP EARLIER. PER PT AND FAMILY HE HAS NOT SLEPT WELL FOR 2 MONTHS. BROWN EMPTIED. WILL CONTINUE TO CLOSELY MONITOR.
--- NOTE | 2018-10-30 19:50 | NUR ---
SLEEPING SOUNDLY, NOTED SATX DEC TO 79 THEN IMMEDIEATE RETURN TO 90'S, PROB SLEEP APNEA, AWAKENED PT AND HAD HIM REPOSITION UP IN BED. IS SOMEWHAT SLOW TO RESPOND. WILL CONT TO WATCH.
--- NOTE | 2018-10-30 20:20 | NUR ---
UP TO BSC WITH 2 PERSON STANDBY WITH PT USING WALKER. HAS POOR COORDINATION AND HAS DIFFICULTY USING ARMS TO LIFT SELF. ADUSTED WALKER TO BE LOWER WITH SOMEWHAT BETTER RESULTS. BECOMES FRUSTRATED. BACK TO BED EASIER. NO BM. DR CAROLINA AWARE OF HR, AND URINE OUTPUT. WILL CONT TO WATCH FOR NOW.
--- NOTE | 2018-10-30 22:43 | NUR ---
SLEEPING, AWAKENED WHEN IN TO GIVEN ABX. NO C/O AT THIS TIME.
--- NOTE | 2018-10-31 00:22 | NUR ---
AWAKENS EASILY FOR ASSESSMENT. STATES PAIN IS GETTING WORSE , 8/10. GIVEN 10MG OXYCODONE PO. IS MORE TALKATIVE AND INTERACTIVE NOW. SPOKE OF NEED FOR PAIN MANAGMENT WITHOUT OVERSEDATION. HAVE PILLOW UNDER R STUMP BUT PT WILL MOVE IT OFF DEPENDING ON POSITION OF SLEEP.
--- NOTE | 2018-10-31 01:40 | NUR ---
PT C/O SEVERE PAIN 07/05. TEARFUL " IT FEELS LIKE MY LEG IS STILL THERE" GIVEN 8MG DIALUDID PO AND 650MG TYLENOL PO. R LEG REPOSITIONED AND ICE APPLIED. STAYED WITH PT UNTIL CALMER.
--- NOTE | 2018-10-31 02:20 | NUR ---
PT SITTING UP AND TALKING TO MOM. STATES PAIN IS LITTLE BETTER BUT IS NOT CRYING.
--- NOTE | 2018-10-31 03:32 | NUR ---
ASLEEP AT THIS TIME.
--- NOTE | 2018-10-31 04:43 | NUR ---
PT AWAKENS EASILY, IS DIAPHORETIC, PT STATES HE THINKS IS BS IS LOW. BS 24 PER ACCUCHECK. GIVEN 1 AMP D50 AND ALSO GIVEN ORANGE JUICE.
--- NOTE | 2018-10-31 05:06 | NUR ---
PT HAS ALSO BEEN SIPPING ON ENSURE DIDN'T FEEL HE COULD EAT. HAD SEVER PAIN WITH MOVEMENT OF R LOWER EXTREMITY GIVEN 10MG OXYCODONE PO. BS 101 AT 0555. WILL RECHECK AT 0530.
--- NOTE | 2018-10-31 05:48 | NUR ---
BS 80. ENCOURAGED TO FINISH THE ENSURE THAT HE WAS GIVEN WHICH HE DID. GIVEN A WARM BLANKET PER REQUEST. PT ABLE TO DOZE OFF. SCHEDULED VANCOMYCIN THAT IS MIXED IS D5W.
--- NOTE | 2018-10-31 07:47 | NUR ---
THIS RN TAKING OVER PT'S CARE FOR THE DAY. REPORT RECEIVED AND I INTRODUCED MYSELF TO PT AND HIS MOTHER AT THE BEDSIDE. PT IS PLEASANT AND COOPERATIVE BUT ANXIOUS AND IN PAIN. PT STATES HIS PAIN IS AN 8 OUT OF 10- STATES HIS PAIN IS PHANTOM WHERE HIS RIGHT FOOT AND RLE WOULD BE. PT BECAME TEARFUL WITH MOVEMENT IN THE BED. PRN PAIN AND ANXIETY MEDICATION GIVEN. VSS. A/O X4. ROOM AIR. ACTIVE BOWEL TONES. LR RUNNING CONTINUOUSLY INTO PIV WITHOUT ISSUES. BROWN IN PLACE DRAINING ADEQUATE URINE AMOUNT. EMOTIONAL SUPPORT AND THERAPEUTIC COMMUNICATION GIVEN. PAIN CONTROL MAIN GOAL AT THIS TIME PT IS VERY UNCOMFORTABLE. WILL PROVIDE ADEQUATE COVERAGE OVER THE SHIFT. PT'S BLOOD GLUCOSE 101- NO INSULIN GIVEN. CALL LIGHT WITHIN REACH. FALL PRECAUTIONS IN PLACE. WILL CONTINUE TO MONITOR.
--- NOTE | 2018-10-31 08:55 | NUR ---
PT STATES THAT HIS PAIN IS STILL AN 8 OUT OF 10 BUT HE IS NO LONGER TEARFUL. PRN OXY GIVEN AT THIS TIME TO ASSIST IN FURTHER PAIN CONTROL. PT DENIES ANY NEEDS TO BE MET AT THIS TIME. CALL LIGHT WITHIN REACH. FALL PRECAUTIONS IN PLACE. WILL CONTINUE TO MONITOR.
--- NOTE | 2018-10-31 09:55 | NUR ---
PT SITTING UP IN BED EATING BREAKFAST. PT IS MUCH MORE CALM THAN 2 HOURS AGO, AND PAIN CONTROL HAS IMPROVED. PT RATES HIS PAIN AT A 6 OUT OF 10 RIGHT NOW. HE REMAINS SINUS TACH ON TELE MONITOR BUT WILL CONTINUE TO MONITOR. PT DENIES ANY NEEDS TO BE MET AT THIS TIME. CALL LIGHT WITHIN REACH. FALL PRECAUTIONS IN PLACE. WILL CONTINUE TO MONITOR.
--- NOTE | 2018-10-31 11:12 | NUR ---
PT UPDATED ON PLAN OF CARE/PLAN TO TRANSFER TO M/S UNIT. PT EDUCATED ON GABAPENTIN RESTARTING WELL, FOR PHANTOM LEG PAIN/DISCOMFORT. PT APPEARS TO BE THE MOST COMFORTABLE HE HAS ALL MORNING- AFTER EDUCATION AND WHILE PREPPING MEDS, HE STARTED DOSING OFF TO SLEEP. PT'S MOTHER AT BEDSIDE JUST SPOKE WITH CASE MANAGEMENT. 12.5 MG ONE TIME DOSE OF METOPROLOL GIVEN FOR HR CONTROL. WILL RETURN WITH PRN DILAUDID WHEN ABLE TO GIVE IN 30 MINUTES. CALL LIGHT WITHIN REACH. FALL PRECAUTIONS IN PLACE. WILL CONTINUE TO MONITOR.
--- NOTE | 2018-10-31 11:17 | CONS ---
[facility] [address] [place], [place] [address] Signed DATE OF CONSULTATION: 10-29-2018 ER CONSULTATION HISTORY OF PRESENT ILLNESS: Mr. Marquez is a 28-year-old white male with type 1 diabetes, apparently under poor control. He has had ongoing right foot infection for the last several weeks, managed by the Podiatry service. He presented to the emergency room tonight febrile with a high white count and apparently borderline septic. I was asked to see the patient because the podiatry service was not available Tuesday. PAST MEDICAL HISTORY: Significant for long history of type 1 diabetes, apparently not terribly well controlled. His past medical history, medications, and allergies are noted in the hospitalist consult. PHYSICAL EXAMINATION: GENERAL: He is a thin, alert white male, in no acute distress. HEAD, EARS, EYES, NOSE, AND THROAT: Negative. NECK: Supple. CHEST: Clear. CARDIAC: Reveals a regular rhythm. ABDOMEN: Benign. EXTREMITIES: His right lower extremity is erythematous and swollen and quite foul smelling. There is crepitus underneath the skin, over the foot all the way up to the ankle. There is no palpable dorsalis pedis or posterior tibial pulse, but he has a bounding popliteal pulse. The area of demarcation of the infection at the moment appears to be in about the mid calf. His left leg appears to be unaffected. LABORATORY DATA: X-rays were taken and reviewed. He has a gas infiltration in the soft tissues in the foot. IMPRESSION: Gas-forming infection in the foot possibly necrotizing fasciitis. After discussing the treatment options, I strong suggested Mr. Marquez consider the option of below-knee amputation. He is clearly febrile with a white count and appears to be septic. After outlining all the potential risks, complications, and alternative methods of treatment, he was comfortable proceeding with a right below-knee amputation. Electronically Signed By: STEFANO WONG MD 10/30/1830 Electronically Signed By: STEFANO WONG MD 11/01/18 1023 PATIENT NAME: MARQUEZNGOCNaya WATSON CONSULTATION DATE OF : 88 REPORT #: [id number] PHYSICIAN: STEFANO WONG MD PCP: SIL[facility]IA PARISH REPORT IS CONFIDENTIAL AND NOT TO BE RELEASED WITHOUT AUTHORIZATION [address] [place], [place] [address] Signed Stefano Wong MD WFB/MODL /[id number] Copies: ~ Electronically Signed By: STEFANO WONG MD 10/30/18929 Electronically Signed By: STEFANO WONG MD 11/01/18 1023 PATIENT NAME: NGOC MARQUEZ CONSULTATION DATE OF : 88 REPORT #: [id number] PHYSICIAN: STEFANO WONG MD PCP: S[facility] REPORT IS CONFIDENTIAL AND NOT TO BE RELEASED WITHOUT AUTHORIZATION
--- NOTE | 2018-10-31 11:30 | NUR ---
ALYSSA RUIZ GIVEN PT IS WORKING WITH JED NOEL, AT THIS TIME. CALL LIGHT WITHIN REACH. WILL CONTINUE TO MONITOR PAIN CONTROL.
--- NOTE | 2018-10-31 11:51 | NUR ---
PT IS EXPERIENCING SOME "PHANTOM" PAIN AND ADMITTED IT WAS ALITTLE DIFICULT TO EXPLAIN WHAT HE WAS FEELING. DR BAGLEY EXPLAINED IT TO HIM AND IT SEEMED THOUGH A LIGHT WENT ON INSIDE. ESPECIALLY WHEN DR BAGLEY TALKED TO HIM. GOOD CONVERSATION, PT ALLOWED ME TO PRAY FOR HIM. WILL CONTINUE TO FOLLOW NEEDED
--- NOTE | 2018-10-31 11:55 | NUR ---
THIS RN ASSISTED PT FROM WHEELCHAIR, WHERE HE REQUESTED TO SIT UP IN AFTER FINISHING PT, TO COMMODE WITH USE OF WALKER. PT SHOWED SOME ANXIETY AND FRUSTRASTION WITH TRANSFER. EMOTIONAL SUPPORT GIVEN WELL EDUCATION ON TRANSFER TECHNIQUE. PT REQUESTS TIME TO SIT UP ON COMMODE. CALL LIGHT WITHIN REACH.
--- NOTE | 2018-10-31 12:08 | NUR ---
PT STATES HE IS EXPECTING TO RETURN HOME UPON DC. LIVING WITH HIS MOTHER.
--- NOTE | 2018-10-31 13:15 | NUR ---
ASSESSMENT COMPLETE- PT HELPED BACK TO BED THIS LAST HOUR BY OT. PT RESTING IN BED WITH C/O PAIN OF AN 8 OUT OF 10- MEDCATIONS GIVEN. DRESSING ON RLE REMAINS CDI. DENIES N/V. FLAT AFFECT BUT PT AWARE OF PLAN TO TRANSFER TO MED SURG. CALL LIGHT WITHIN REACH. WILL CONTINUE TO MONITOR.
--- NOTE | 2018-10-31 14:30 | NUR ---
REPORT GIVEN TO RECEIVING RN. PT TAKEN IN BED TO M/S UNIT ROOM 107 WITH MOTHER AT HIS SIDE WELL WITH ALL BELONGINGS. VS AND CONDITION STABLE. TRANSFER COMPLETE.
--- NOTE | 2018-10-31 14:40 | NUR ---
pt transfered from ccu to med-surg. care taken over from breana tubbs. assessment complete. pts dressing c/d/i. discussed plan of care with pt. pt asking about pain control. discussed pain medication and schedule with pt. pt verbalized understanding.
--- NOTE | 2018-10-31 15:00 | NUR ---
pt rating pain 8/10 in right leg. gave 8mg dilaudid po.
--- NOTE | 2018-10-31 16:30 | NUR ---
IN ROOM TO CHECK PTS BLOOD SURGAR. DIFFICULTY WAKING PT UP AT THIS TIME. ATTEMPTED TO STERNAL RUB PT. NO RESPONSE FROM PT. VITAL SIGNS TAKEN AT THIS TIME. WNL. NOTFIED. ONCE BACK IN ROOM. PT REPSONDING TO SHAKING. PT ABLE TO OPEN EYE'S AND VERBALLY COMMUNICATE.
[2018-10-31] MEDS ORDERED: ZESTRIL10 MG PO (17:12)
[2018-10-31] MEDS ORDERED: LASIX40 MG PO (18:19)
--- NOTE | 2018-10-31 18:20 | NUR ---
MED REC COMPLETE
--- NOTE | 2018-10-31 18:24 | NUR ---
PATIENT IN BED EATING DINNER. FAMILY IN ROOM. CALL LIGHT IN REACH. NO FURTHER NEEDS AT THIS TIME.
--- NOTE | 2018-10-31 18:30 | NUR ---
PT ANXIOUS AND CRYING REGARDING RECENT RIGHT BKA. ATTEMPTED TO REASSURE PT ABOUT OUTCOME. PT CONTINUED TO CRY. MOM IN ROOM TO HELP CONSOLE PT.
--- NOTE | 2018-10-31 18:58 | NUR ---
PT TRANSFERED FROM CCU THIS AFTERNOON. DIFFICULTY WITH PAIN CONTROL. PAIN MEDICATION CHANGED THIS EVENING. 2 PERSON ASSIST. DRESSING TO RIGHT STUMP C/D/I. PT ANXIOUS AND EMOTIONAL ABOUT CURRENT DIAGNOSIS.
--- NOTE | 2018-10-31 19:00 | NUR ---
CHARGE NURSE REPORT RECEIVED. PT IN BED LAYING ON HIS RIGHT SIDE, MOM IN ROOM. NO NEEDS.
--- NOTE | 2018-10-31 19:18 | NUR ---
RECEIVED REPORT FROM ANNETTE BRANCH. pt DROWSY BUT AWAKE. STATES PAIN 4-5/10. CALL LIGHT WITHIN REACH.
--- NOTE | 2018-10-31 21:07 | NUR ---
ASSESSMENT DONE. MEDICATIONS GIVEN (SEE MAR). PAIN 10/10 PRN MEDICATION GIVEN (SEE MAR). PAIN WORSE AFTER MOVING. THERAPEUTIC COMMUNICATION USED. MOM AT BEDSIDE. CALL LIGHT WITHIN REACH.
--- NOTE | 2018-11-01 00:11 | NUR ---
ASSISTED PATIENT TO GO BACK TO BED FROM BEDSIDE COMMODE USING SLIDING BOARD. MOTHER IS IN THE ROOM.
--- NOTE | 2018-11-01 01:18 | NUR ---
ASSESSMENT DONE. PAIN 6/10 PRN PAIN MEDICATIONS GIVEN WITH SCHEDULED MEDS (SEE MAR). pt USED SLIDER BOARD TO MOVE FROM BED TO COMMODE AND BACK WITH 1PA. CALL LIGHT WITHIN REACH.
--- NOTE | 2018-11-01 03:10 | NUR ---
CALL LIGHT ON, REQUESTED ASSISTANCE TO COMMODE. LOOSE BM PRIOR TO TRANSFER. LINEN CHANGED. CATH CARE, BROWN CARE. IN BED REPORTING PAIN, PRN MEDICATION GIVEN (SEE MAR). CALL LIGHT WITHIN REACH.
--- NOTE | 2018-11-01 04:05 | NUR ---
MEDICATION GIVEN (SEE MAR). CALL LIGHT WITHIN REACH.
--- NOTE | 2018-11-01 06:09 | NUR ---
MEDICATION GIVEN (SEE MAR). pt RESTING WITH EYES CLOSED, RESPIRATIONS REGULAR. CALL LIGHT WITHIN REACH.
--- NOTE | 2018-11-01 06:15 | NUR ---
pt RESTING ON AND OFF DURING SHIFT. PAIN IN RIGHT LEG, PRN MEDS X3. RIGHT BELOW THE KNEE AMPUTATION. USES SLIDER BOARD TO GET TO COMMODE AND BACK TO BED. INCONTINENT OF STOOL X1 DUE TO URGENCY. BLOOD SUGAR CHECKS, TYPE 1 DM. IV ABX. USES CALL LIGHT APPROPRIATELY.
--- NOTE | 2018-11-01 08:00 | NUR ---
PT is resting in bed with eyes closed. Respirations even and unlabored. Call light within reach.
--- NOTE | 2018-11-01 08:40 | NUR ---
pt resting in bed. blood pressure 160/110 (map 123), pulse 117. Pt rates his pain 6 out of 10. Medications given. Pt was able to take medications independantly without complications. pt verbilizes he is experiencing some anxiety. Adminastered anxiety medication per order. No other needs at this time. Fall precautions in place, bed is locked. Mother is at bedside.
--- NOTE | 2018-11-01 09:15 | NUR ---
PT RESTING IN BED. NURSE STUDENT AND INSTRUCTOR IN ROOM PASSING MORNING MEDICATIONS. PT ON ROOM AIR, LUNG SOUNDS CLEAR. PT RATING PAIN 6/10 TO RIGHT LEG, RECENTLY RECEIVED OXYCODONE TO RECEIVE SCHEULED TYLENOL. PT WIHT BROWN CATH IN PLACE, DRAINING YELLOW URIN. CMS INTACT, RIGHT FEMORAL ARTERY PALPABLE, DENIES NUMBNESS OR TINGLING, WITHOUT EDEMA. TELE INPLACE, SINUS TACHY, HR 117. PT WITH POOR APPETITE, ONLY ATE A FEW BITES OF BREAKFAST. PT DENIES OTHER NEEDS AT THIS TIME. DISCUSSED PLAN OF CARE FOR THE DAY.
--- NOTE | 2018-11-01 09:40 | NUR ---
RE-ASSESED PT'S ANXIETY, PT STATES "HE IS MUCH BETTER". NO NEEDS AT THIS TIME, CALL LIGHT IN REACH.
--- NOTE | 2018-11-01 10:05 | NUR ---
Repeated BP 135/925 (map 104) pulse 113 pain is 3/10, afebrile. Pt is resting in bed drinking a cup of coffee waiting for physical therapy. Mom is at the bed side. Call light in reach.
--- NOTE | 2018-11-01 10:31 | NUR ---
PT WORKING WITH PT, BLEEDING FROM INCISION. WOUND COVERED WITH GAUZE FOR THERAPY. PT DENIES OTHER NEEDS AT THIS TIME.
--- NOTE | 2018-11-01 10:42 | NUR ---
UPDATED ON HYPERTENSION AND PAIN THIS AM. NO NEW ORDERS AT THIS TIME.
--- NOTE | 2018-11-01 10:55 | NUR ---
PT RATIGN PAIN 05/05, GIVEN 15 MG PO OXYCODONE. GAUZE WRAP REMOVED FROM RLE. PT DENIES OTHER NEEDS AT THIS TIME.
--- NOTE | 2018-11-01 11:30 | NUR ---
PT BLOOD GLUCOSE 121, SS HUMALOG HELD. PT STATES PAIN IS STARTING TO IMPROVE, RATING PAIN 5/10 AT THIS TIME. PT DENIES OTHER NEEDS AT THIS TIME.
--- NOTE | 2018-11-01 12:30 | NUR ---
PT IS RESTING IN BED EYES CLOSED, RESPIRATIONS ARE EVEN AND UNLABORED. CALL LIGHT IN REACH.
--- NOTE | 2018-11-01 13:00 | NUR ---
STEPHANIE CERON'D WITHOUT COMPLICATIONS. EDUCATED PT ON THE IMPORTANCE OF ORAL FLUID INTAKE.NO OTHER NEEDS AT THIS TIME. CALL LIGHT WITH IN REACH.
--- NOTE | 2018-11-01 14:00 | NUR ---
PT RESTING IN BED. PT COMPLAINT OF PAIN 8/10 TO RLE, GIVEN 15 MG OXYCODONE, PT STATES 15 MG WAS EFFECTIVE FOR LAST DOSE. PT ON ROOM AIR, LUNG SOUND CLEAR. PT CONTINUES TO HAVE POOR APPETITE, ENCOURAGED PO INTAKE. PT WITH RLE STUMP OPEN TO AIR, FEMORAL PULSE PALPABLE. NO ACUTE CHANGES. PT REQUESTING TO SHOWER LATER THIS EVENING AFTER MOTHER HAS DELORES CLEAN CLOTHES FROM HOME. PT DENIES OTHER NEEDS AT THIS TIME. DISCUSSED PLAN FOR BLOOD TRANSFUSION THIS AFTERNOON.
--- NOTE | 2018-11-01 14:00 | NUR ---
PT IS RESTING IN BED. VISITING WITH HIS MOM. PT RATED PAIN 8/10. PAIN MEDICATIONS GIVEN. NO OTHER NEEDS AT THIS TIME, FALL PRECAUTIONS IN PLACE, BED IN LOCKED POSISTION, CALL LIGHT WITH IN REACH.
--- NOTE | 2018-11-01 14:50 | NUR ---
ASSISTED PT TO BEDSIDE COMMODE WITH MINIMAL ASSIST. PT HAD A LARGE LOOSE BM. UNABLE TO MEASURE URINE. PT IS BACK IN BED WITH CALL LIGHT IN REACH.
--- NOTE | 2018-11-01 15:43 | NUR ---
BLOOD TRANSFUSION UNIT 1 OF 2 BEGAN. 2 RN VERIFICATION WITH PEPE BRYANT. THIS RN REMAINED WITH PT FOR FIRST 15 MINUTES OF TRANSFUSION, NO S/S OF TRANSFUSION REACHION, PT DENIES PAIN. PT ASSISTED FROM BSC TO BED, HAD LARGE LOOSE STOOL, URINATED BUT UNABLE TO MEASURE. PT DENIES OTHER NEEDS AT THIS TIME. PT EDUCATED ON S/S OF TRANSFUSION REACTIONAAND INSTRUCTED TO NOTIFY NURSE IMMEDIATELY.
--- NOTE | 2018-11-01 16:51 | NUR ---
STUMP WRAP DRESSING PLACED. INCISION COVERED WITH NONADHERENT GAUZE DUE TO DRAINAGE, SECURED WITH GAUZE ROLL AND HANS BANDAGE. PT EDUCATION COMPLETED. PT TOLERATING BLOOD TRANSFUSION. PT DENIES OTHER NEEDS AT THIS TIME.
--- NOTE | 2018-11-01 18:24 | NUR ---
TRANSFUSION 1 OF 2 COMPLETED, 300 ML OF PRBC INFUSED. PT WITH ELEVATED BP AND ELEVATED TEMP AFTER TRANSFUSION, PT WITH PAIN TO RLE. PT PROVIDED WITH OXYCODONE FOR PAIN. MD NOTIFIED OF CHANGE IN VITALS, ORDER TO GIVE TYLENOL, RECHECK BP WHEN PAIN HAS IMPROVED AND TO MONITOR TEMP, MAY TRANSFUSE SECOND UNIT OF BLOOD IF TEMP AND BP HAVE IMPROVED.
--- NOTE | 2018-11-01 18:45 | NUR ---
PT ON ROOM AIR, LUNG SOUNDS CLEAR. PAIN CONTROLLED WITH 15MG OXYCODONE. PT WITH BETTER APPETITE TODAY. PT RECEIVED 1 OF 2 UNITS OF BLOOD, HYPERTENSIVE AND TEMP AFTER TRANSFUSION COMPLETED, TYLENOL GIVEN, ORDER TO HOLD SECOND TRANSFUSION UNTIL TEMP AND BP HAVE IMPROVED. PT 1PA WITH SLIDE BOARD, 2PA WITH WALKER, WORKED WITH PT. STUMP WRAP APPLIED TO RLE, GAUZE AND HANS BANDAGE. PT HYPOGLYCEMIC THIS AM, GIVEN D50, BLOOD GLUCOSE NOW 284 AT DINNER, GIVEN 7 UNITS SS HUMALOG AND 5 UNITS LANTUS. BROWN CATH REMOVED, VOIDED IN BSC, UNABLE TO MEASURE.
--- NOTE | 2018-11-01 19:00 | NUR ---
RECEIVED REPORT FROM ANNETTE SANCHEZ. pt ALERT AND AWAKE. STATED PAIN 03/05. WHITEBOARD UPDATED. NO REQUESTS AT THIS TIME.
--- NOTE | 2018-11-01 20:37 | NUR ---
PT IN BED, MOM AT BEDSIDE. VS DONE FOR 2ND UNIT PRBC.
--- NOTE | 2018-11-01 22:01 | NUR ---
PT WITH EYES CLOSED, RESP EVEN AND UNLABORED. BLOOD CONTINUES TO INFUSE. MOM LAYING ON COUCH, FRESH ICE WATER GIVEN.
--- NOTE | 2018-11-01 22:14 | NUR ---
ASSESSMENT DONE. IV IN LAC LEAKING, REMOVED. REDRESSED RIGHT AC IV, FLUSHES WELL. BLOOD INFUSING. STATED PAIN 5/10. POSITIONED FOR SLEEP. NO FURTHER REQUESTS AT THIS TIME. CALL LIGHT WITHIN REACH.
--- NOTE | 2018-11-01 23:15 | NUR ---
BAG 2 OF 2 COMPLETED PRBC INFUSED, IV FLUSHED. VS WNL, PT MOSTLY SLEEPY, IV SITE RH WNL.
--- NOTE | 2018-11-02 01:10 | NUR ---
ROUNDED ON pt. RESTING WITH EYES CLOSED, RESPIRATIONS REGULAR, RATE = 16. CALL LIGHT WITHIN REACH.
--- NOTE | 2018-11-02 02:15 | NUR ---
BLOOD SUGAR 63 MG/DL. GAVE CRACKERS PEANUT BUTTER AND ORANGE JUICE. pt COMPLIANT AND EATING. DENIES S/S OF HYPOGLYCEMIA. D5LR AT 75 MLS/HR. CALL LIGHT WITHIN REACH. EDUCATION DONE.
--- NOTE | 2018-11-02 02:36 | NUR ---
BLOOD SUGAR RECHECKED. WITHIN NORMAL RANGE. WILL CONTINUE TO MONITOR NEEDED.
--- NOTE | 2018-11-02 04:32 | NUR ---
ROUNDED ON pt. RESTING WITH EYES CLOSED, RESPIRATIONS REGULAR. CALL LIGHT WITHIN REACH.
--- NOTE | 2018-11-02 05:12 | NUR ---
pt RESTED MOST OF NIGHT. PRN PAIN MEDS X3. VOIDING IN URINAL. 1PA WITH SLIDE BOARD TO COMMODE. 1 UNIT PRBC. LOW BLOOD SUGAR, INCREASED TO NORMAL RANGE WITH CRACKERS AND JUICE. ACCU CHECKS. D5LR RUNNING. TOLERATING ADA DIET. USES CALL LIGHT APPROPRIATELY.
--- NOTE | 2018-11-02 06:20 | NUR ---
pt REPORTED 6/10 PAIN AND REQUESTED PRN PAIN MEDS. GIVEN (SEE MAR). NO FURTHER REQUESTS AT THIS TIME.
--- NOTE | 2018-11-02 07:26 | NUR ---
PT RESTING SUPINE IN BED, EYES CLOSED AND RESPIRATIONS EVEN AND UNLABORED. CALL LIGHT AND H2O IN REACH. PT APPEARS TO BE SLEEPING COMFORTABLY.
--- NOTE | 2018-11-02 08:13 | NUR ---
Pt resting supine in bed, alert and oriented x3. pt states "I just want to know when I'll get to go home" pt denies sob or pain. dsg to rle CDI. Pt requests shower today and agrees to use call light for assistance when he feels ready to take shower. Pt was assured that he will be updated on possible discahrge date/time when it is known and that MD should be making rounds today to see him and can discuss possible discharge with him at that time.
--- NOTE | 2018-11-02 08:41 | NUR ---
Assessment complete and medications administered. PT reports that pain is currently a 6/10 with 5/10 being his goal pain level. He denies the need for additional pain medication at this time. PT and his mother both report that he is experiencing anxiety. PRN for anxiety given per PT request. PT denied the need for any further assistance at this time. He is currently sitting up in bed eating breakfast with call light within reach and mother in the room.
--- NOTE | 2018-11-02 09:08 | NUR ---
Documentation of catheter DC completed today. Catheter DC'd yesterday. Documentation in I&O's charted as catheter still being present.
--- NOTE | 2018-11-02 09:10 | NUR ---
PT RESTIGN SUPINE IN BED, ASSESSMENT COMPLETED. CALL LIGHT AND H20 IN REACH. NO NEEDS/CONCERNS VOICED.
--- NOTE | 2018-11-02 10:55 | NUR ---
PT assisted to the shower and linens changed. PT requested to be transferred to shower commode by wheelchair. PT transferred well from bed to wheelchair and from wheelchair to shower commode with minimal assistance. PT showered independently with no assist.
--- NOTE | 2018-11-02 11:23 | NUR ---
Education given on dressing changes for RBKA wound. PT performed dressing change with only verbal assistance well. He expressed that he felt comfortable with performing further dressing changes. Physical therapy in the room now.
--- NOTE | 2018-11-02 13:10 | NUR ---
Pt resting in bed, assessment completed and po abx administered. Call light and h2o in reach. Pt denies further needs or concerns at this time.
--- NOTE | 2018-11-02 16:30 | NUR ---
AFTER TALKING WITH PT AND MOTHER, THEY DECIDED THEY WOULD BE ABLE TO FIT A NORMAL SIZE WC IN THEIR APT AND HAD ASKED DR BAGLEY TO WRITE AN ORDER FOR ONE. THEY ALSO ASKED FOR AN RX FOR A SLIDE BOARD AND A BEDSIDE COMMODE AND A FWW. I TALKED WITH [facility] (WHICH WAS THEIR DME OF CHOICE) AND THEY INFORMED ME THAT PTS INSURANCE WILL ONLY COVER ONE OR THE OTHER OF WC OR WALKER AND THE INSURANCE WILL NOT COVER A SLIDE BOARD OR A COMMODE. I AGAIN TALKED WITH PT AND HIS MOTHER AND THEY SAID THEY NEEDED THE WC MORE THAN THE WALKER AND THAT THEY WOULD PROBABLY BUY THOSE SEPARATELY BUT THEY WANTED THE WC. I CALLED [facility] BACK AND THEY STATED THEY WOULD DELIVER THE WC HERE IN A LITTLE WHILE. I SENT ORDER FOR THE WC, FACE SHEET, ER NOTES AND SUMMARY, H AND P, OP NOTES PROG NOTES TO [facility]. THEY STATED THEY NEEDED MORE INFORMATION FROM DR BAGLEY, I CALLED HIM AND HE STATED HE WOULD BE IN TOMORROW AFTERNOON TO FILL THAT OUT.
[2018-11-02] MEDS ORDERED: AMOX TR-K CLV1 EACH PO (16:32)
[2018-11-02] MEDS ORDERED: CLEOCIN HCL300 MG PO (16:33)
[2018-11-02] MEDS ORDERED: METOPROLOL TART50 MG PO (16:34)
[2018-11-02] MEDS ORDERED: LANTUS100 UNITS/ SUB-Q (16:35)
[2018-11-02] MEDS ORDERED: ZANTAC150 MG PO (16:35)
[2018-11-02] MEDS ORDERED: HYDROCODON-ACE1 EAC8 PO (16:48)
--- NOTE | 2018-11-02 17:54 | NUR ---
PT EDUCATION COMPLETED. ALL QUESTIONS ANSWERED. COPY OF DISCHARGE PACKET PROVIDED. PT ASSISTED INTO WAITING VAN FROM PERSONAL WC AND TOLERATED TRANSFER WELL. pT DENIES FURTHER CONCERNS OR NEEDS.
--- NOTE | 2018-11-03 14:35 | DS ---
[facility] [address] [place], [place] [address] Signed ADMISSION DATE: 10/29/2018 DISCHARGE DATE: 11/02/2018 FINAL DIAGNOSIS AT TIME OF DISCHARGE: 1. Necrotizing fasciitis, right foot. 2. Uncontrolled diabetes. 3. Renal failure secondary to necrotizing fasciitis. HISTORY OF PRESENT ILLNESS: The patient a 28-year-old male with impressively poorly-controlled diabetes. He was sent to the emergency room on the date of admission with a necrotic foul-smelling of foot. Examination and imaging suggested there were gas forming organisms involved and he clinically appeared to have necrotizing fasciitis. The patient was seen in the emergency room and has felt that he had necrotizing fasciitis. He was taken expeditiously to the operating room, where he underwent a right below-knee amputation. Postoperatively, he has done remarkably well. The hospitalist staff did an excellent job getting his diabetes back under control and optimizing his renal function. At the present time, he is actually comfortable on oral pain medications. The physical therapy staff indicates these past criteria and has mastered transfers nonweightbearing on the right. His stump is clean and dry and his hematological parameters are stable. We are going to discharge him home at this time and have him continue with 2-3 time daily stump wrapping for stump shrinkage. We will see him back in about 3 weeks to assess him for stable removal. MD ZULEYMA Mcbride/TRACEE /[id number] Copies: Electronically Signed By: FLORIN BAGLEY MD 11/03/18 1435 PATIENT NAME: NGOC COREA DISCHARGE SUMMARY DATE OF : 88 REPORT #: [id number] PHYSICIAN: FLORIN BAGLEY MD PCP: [facility] REPORT IS CONFIDENTIAL AND NOT TO BE RELEASED WITHOUT AUTHORIZATION [address] [address] Signed ~ Electronically Signed By: FLORIN BAGLEY MD 11/03/18 1435 PATIENT NAME: NGOC COREA DISCHARGE SUMMARY DATE OF : 88 REPORT #: [id number] PHYSICIAN: FLORIN BAGLEY MD PCP: [facility] REPORT IS CONFIDENTIAL AND NOT TO BE RELEASED WITHOUT AUTHORIZATION
== END 2018-11-02 17:45 | disposition home or self-care (01) | DRG 853 ==
LOC: ED 15:33 → CCU 19:42 → MS 10-31 14:20
PROVIDERS: ADMIT Orthopaedic Surgery
PROC: 0Y6H0Z1 Detachment at Right Lower Leg, High, Open Approach (ICD-10-PCS; principal; 2018-10-29 20:00)
DX: A41.9 Sepsis, unspecified organism (principal); M72.6 Necrotizing fasciitis; N17.9 Acute kidney failure, unspecified; E87.2 Acidosis; E10.621 Type 1 diabetes mellitus with foot ulcer; L97.519 Non-pressure chronic ulcer of other part of right foot with unspecified severity; E10.65 Type 1 diabetes mellitus with hyperglycemia; F17.200 Nicotine dependence, unspecified, uncomplicated; M06.9 Rheumatoid arthritis, unspecified; R10.9 Unspecified abdominal pain; G89.29 Other chronic pain; E10.22 Type 1 diabetes mellitus with diabetic chronic kidney disease; I12.9 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e 4 chronic kidney disease, or unspecified chronic kidney disease; G54.6 Phantom limb syndrome with pain; D64.9 Anemia, unspecified; N18.3 Chronic kidney disease, stage 3 (moderate); E83.51 Hypocalcemia; Z79.4 Long term (current) use of insulin; Z79.891 Long term (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; Z79.899 Other long term (current) drug therapy; Z88.5 Allergy status to narcotic agent
CPT/HCPCS: 01232; 36415; 36430; 71045; 73630; 74176; 80048; 80053; 80076; 80202; 82565; 83605; 83735; 84100; 85025; 86850; 86900; 86901; 86920; 87040; 88307; 93005; 93010; 96361; 96365; 96366; 96367; 96368; 96375; 97110; 97162; 97166; 97530; 99285-25; J0692; J1170; J1650; J1815; J2185; J2250; J2274; J2704; J3010; J3370; J3490; J7030; J7060; J7120; P9016; Q0177

== ENCOUNTER 2019-01-21 16:24 | Emergency (ER) | payer OTHER ==
[~2019-01-21] VITALS: Ht 188 cm; Wt 63.6 kg
--- OUTSIDE RECORDS SUMMARY | ~2019-01-21 | XMS | Encounter Summary ---
Demographics + + + | Address | [address] [facility] [address] | | | [place] [address] | + + + | Home Phone | | + + + | Preferred Language | Unknown | + + + | Marital Status | Unknown | + + + | Baptism Affiliation | Unknown | + + + | Race | Unknown | + + + | Ethnic Group | Unknown | + + + Author + + + | Author | [employer] | + + + | Organization | [facility] | + + + | Address | Unknown | + + + | Phone | Unavailable | + + + Support + + +---------+ + | Name | Relationship | Address | Phone | + + +---------+ + | Gia Ramos | ECON | Unknown | | + + +---------+ + Care Team Providers + +------+ + | Care Recording Artist Name | Role | Phone | + +------+ + | Erich Yates | PCP | | + +------+ + Encounter Details +--------+ + + + + | Date | Type | Department | Care Team | Description | +--------+ + + + + | 01/05/ | Telephone | [facility] | [place], | | | 2019 | | [address] | [address] | | | | | [address] | | | | | | [place] [address] | | | | | | [phone] | | | +--------+ + + + [...] Description | +--------+---------+ + + + | 02/23/ | Office | Endocrinology | Ted Carlos, | | | 2019 | Visit | | MD Nabor GAMBOA | | | | | | [address] | | | | | | [place] [address] | | | | | | [phone] | | | | | | | | +--------+---------+ + + + | 03/19/ | Office | Nephrology | Winston Whitman MD | | | 2019 | Visit | | [address] | | | | | | [address] [place] | | | | | | [address] | | | | | | | | +--------+---------+ + + + as of this encounter Visit Diagnoses Not on filein this encounter"
--- OUTSIDE RECORDS SUMMARY | ~2019-01-21 | XMS | Clinical Summary ---
Demographics + + + | Address | [address] | | | [place] [address] | + + + | Home Phone | | + + + | Preferred Language | Unknown | + + + | Marital Status | Single | + + + | Mu-Ism Affiliation | Unknown | + + + | Race | Unknown | + + + | Ethnic Group | Unknown | + + + Author + + + | Author | [facility] | | | and [place] | + + + | Organization | [facility] | | | and [place] | + + + | Address | Unknown | + + + | Phone | Unavailable | + + + Support + + + + + | Name | Relationship | Address | Phone | + + + + + | Gia Ramos | ECON | [address] | | | | | [place] | | | | | [address] | | + + + + + | Gia Ramos | ECON | Unknown | | + + + + + Care Team Providers + +------+ + | Care Street Department Dispatcher Name | Role | Phone | + +------+ + | Erich Yates | PP | | + +------+ + Allergies + [...] | | + + + +---------+------+------+-------+ | phytonadione | Take 100 mcg by | | 0 | | | Activ | | (PHYTONADIONE) 100 | mouth 2 times daily. | | | | | e | | MCG TABS | | | | | | | [...] + +---------+------+------+-------+ | Furosemide (LASIX | Take 1 tablet by | | 0 | | | Activ | | PO) | mouth 2 times daily. | | [...] 1 tablet by | | 0 | 08/27 | | Activ | | (PRINIVIL, ZESTRIL) | mouth 2 times daily. | | | 11/15 | | e | | 10 mg tablet | | | | 18 | | | + + + +---------+------+------+-------+ | raNITIdine | Take 1 tablet by | | 0 | 08/26 | | Activ | | (ZANTAC) 150 mg | mouth 2 times daily. | | | 03/15 | | e | | tablet | | | | 18 | | | + + + +---------+------+------+-------+ Active Problems + + + | Problem | Noted Date | + + + | Right ureteral stone | 09/19/2018 | + + + | Hyperkalemia | 09/19/2018 | + + + | Type 1 diabetes mellitus | 09/19/2018 | + + + + + | Overview: Overview: | | ICD10 | + + + + + | Hypertension | 09/19/2018 | + + + | Marijuana use | 09/19/2018 | + + + | Current smoker | 09/19/2018 | + + + | Hyperglycemia due to type 1 diabetes mellitus | 09/17/2015 | + + + | Diabetic gastroparesis associated with type 1 diabetes mellitus | 08/27/2015 | + + + | Epigastric pain | 08/26/2015 | + + + | Fissure in skin of foot | 08/26/2015 | + + + | Diabetic ketoacidosis without coma associated with type 1 | 08/25/2015 | | diabetes mellitus | | + + + Immunizations + + + + | Name | Dates Previously Given | Next Due | + + + [...] + +--------+ + | Father | | | | + + +--------+ + | Maternal Grandfather | | | | + + +--------+ + | Mother | | | | + + +--------+ [...] + +---------+ + | Alcohol Use | Drinks/We | oz/Week | Comments | | | ek | | | + + +---------+ + | No [...] Filed Vital Signs + + + + | Vital Sign | Reading | Time Taken | + + + + | Blood Pressure | 130/82 | 09/29/2018 0928 PST | + + + + | Pulse | 110 | 09/29/2018927 PST | + + + + | Temperature | 36.3 C (97.3 F) | 09/20/20181124 PST | + + + + | Respiratory Rate | 20 | 09/29/2018927 PST | + + + + | Oxygen Saturation | 99% | 09/20/20181124 PST | + + + + | Inhaled Oxygen | - | - | | Concentration | | | + + + + | Weight | 68 kg (149 lb 14.6 | 09/29/2018927 PST | | | oz) | | + + + + | Height | 188 cm (6' 2") | 09/29/2018927 PST | + + + + | Body Mass Index | 19.25 | 09/29/2018927 PST | + + + + Plan of Treatment [...] + + | Hemoglobin A1c | | | | | Screening | 8 | | | + + + + + | Vaccine: | | 02/17/2014, 05/09/2006, | | | Dtap/Tdap/Td (7 - | 4 | 05/15/1999, Additional history | | | Td) | | exists | | + + + + + | Vaccine: | Completed | 05/25/2014, 04/10/2014 | | | Pneumococcal 19-64 | | | | | (PPSV23 only) Medium | | | | | Risk | | | | + + + + + | Vaccine: Influenza | Completed | 09/20/2018, 07/02/2015, | | | | | 08/23/2006 | | + + + [...] Frm 6 | Stent | Right: | JOYCE | | 07/14/ | [id number] | | - [id number]: | | | [employer] | | 2020 | / | | Qty: 1 on 09/19/2018 by | | Rufus | - JOYCE | | | /[id number] | | Tc Mora MD | | | | | | 43 | + +-------+--------+ +--------+--------+--------+ Results Not on filefrom Last 3 Months Insurance + +--------+ +--------+ [...] | [employer] | MODA | [id number] | | [phone] | | Medica | | MEDICAID HMO [...] | + +--------+ +--------+ + + | JimmyYaot | Person | Self | [birth year] | [address] | | | al/Fam | | 1991 | [phone] | [address] [place], | | | lucian | | | 0 (Home) | [place] [address] | + +--------+ +--------+ + + Advance Directives Patient has advance care planning documents, and code status on file. For more information, please contact:[facility] [place] [address] + + + + + | Code Status | Date | Date | Comments | | | Activated | Inactivated | | + + + + + | Full Code | 09/20/2018 | 09/20/2018 | | | | 2:00 | 17:02 | | + + + + +
--- OUTSIDE RECORDS SUMMARY | ~2019-01-21 | XMS | Encounter Summary ---
Demographics + + + | Address | [address] [facility] | | | [place] [address] | + + + | Home Phone | | + + + | Preferred Language | Unknown | + + + | Marital Status | Unknown | + + + | Mosque Affiliation | Unknown | + + + | Race | Unknown | + + + | Ethnic Group | Unknown | + + + Author + + + | Author | [facility] [facility] | + + + | Organization | [facility] [employer] [facility] | + + + | Address | Unknown | + + + | Phone | Unavailable | + + + Support + + +---------+ + | Name | Relationship | Address | Phone | + + +---------+ + | Gia Ramos | ECON | Unknown | | + + +---------+ + Care Team Providers + +------+ + | Care Motor Tester Name | Role | Phone | + +------+ + | Erich Yates | PCP | | + +------+ + Reason for Visit + + + | Reason | Comments | + + + | Labs Only | 01/11/19 Urine culture | + + + Encounter Details +--------+ + + + + | Date | Type | Department | Care Team | Description | +--------+ + + + + | 01/15/ | Documentati | [facility] | [place] | Labs Only (01/11/19 | | 2019 | on Only | [place] [address] | [address] | Urine culture) | | | | [address] | | | | | | [place] [address] | | | | | | [phone] | | | +--------+ + + + [...] [place] | | | | | | [facility] [place] [address] | | | | | | [phone] | | | | | | | | +--------+---------+ + + + | 03/19/ | Office | Nephrology | Winston Whitman MD | | | 2018 | Visit | | [address] | | | | | | [address] [place], [place] | | | | | | [address] | | | | | | | | +--------+---------+ + + + as of this encounter Procedures + +--------+ + + + | Procedure Name | Priori | Date/Time | Associated Diagnosis | Comments | | | ty | | | | + +--------+ + + + | URINE CULTURE | Routin | 01/11/2019 | | Results for this | | | e | 12:00 AM | | procedure are in the | | | | PDT | | results section. | + +--------+ + + + in this encounter Results Urine culture (01/11/2019) + + + + + | Component | Value | Ref Range | Performed At | + + + + + | Specimen Description | Urine | | | + + + + + | CULTURE | No Growth at 18-24 hrs. | | | + + + + + | REPORT STATUS | Final | | | + + + + + + + | Specimen | + + | Urine | + + in this encounter Visit Diagnoses Not on filein this encounter"
--- OUTSIDE RECORDS SUMMARY | ~2019-01-21 | XMS | Encounter Summary ---
Demographics + + + | Address | [address] [facility] | | | [place] [address] | + + + | Home Phone | | + + + | Preferred Language | Unknown | + + + | Marital Status | Unknown | + + + | Anabaptism Affiliation | Unknown | + + + | Race | Unknown | + + + | Ethnic Group | Unknown | + + + Author + + + | Author | [facility] | + + + | Organization | [facility] | + + + | Address | Unknown | + + + | Phone | Unavailable | + + + Support + + +---------+ + | Name | Relationship | Address | Phone | + + +---------+ + | Gia Ramos | ECON | Unknown | | + + +---------+ + Care Team Providers + +------+ + | Care Accounting Bookkeeper Name | Role | Phone | + +------+ + | Erich Yates | PCP | | + +------+ + Reason for Visit +--------+ + | Reason | Comments | +--------+ + | Other | Medical History Questionnaire and current med list | +--------+ + Encounter Details +--------+ + + + + | Date | Type | Department | Care Team | Description | +--------+ + + + + | 01/15/ | Documentati | [facility] | Winston Whitman MD | Other ( | | 2019 | on Only | [place] [address] | [address] | Medical History | | | | [address] | [address] [place], [place] | Questionnaire and | | | | [place] [address] | [address] | current med list) | | | | [phone] | | | +--------+ + + + [...] Endocrinology | Ted Carlos, | | | 2018 | Visit | | MD Nabor GAMBOA | | | | | | [address] | | | | | | [place] [address] | | | | | | [phone] | | | | | | | | +--------+---------+ + + + | 03/19/ | Office | Nephrology | Winston Whitman MD | | | 2018 | Visit | | [address] | | | | | | [address] [place] | | | | | | [phone] | | | | | | | | +--------+---------+ + + + as of this encounter Visit Diagnoses Not on filein this encounter"
--- OUTSIDE RECORDS SUMMARY | ~2019-01-21 | XMS | Encounter Summary ---
Demographics + + + | Address | [address] [facility] | | | [place] [address] | + + + | Home Phone | | + + + | Preferred Language | Unknown | + + + | Marital Status | Unknown | + + + | Yazdanism Affiliation | Unknown | + + + | Race | Unknown | + + + | Ethnic Group | Unknown | + + + Author + + + | Author | [facility] | + + + | Organization | [facility] | + + + | Address | Unknown | + + + | Phone | Unavailable | + + + Support + + +---------+ + | Name | Relationship | Address | Phone | + + +---------+ + | Gia Ramos | ECON | Unknown | | + + +---------+ + Care Team Providers + +------+ + | Care Athletic Coach Name | Role | Phone | + +------+ + | Erich Yates | PCP | | + +------+ + Encounter Details +--------+ + + + + | Date | Type | Department | Care Team | Description | +--------+ + + + + | 01/12/ | Orders Only | [facility] | Dony, | Chronic kidney | | 2019 | | [address] | disease, stage III | | | | [address] | | (moderate) ([facility]) | | | | [place] [address] | | | | | | [phone] | | | +--------+ + + + [...] | | 2018 | Visit | | [address] | | | | | | [place] [address] | | | | | | [place] [address] | | | | | | [phone] | | | | | | | | +--------+---------+ + + + | 03/19/ | Office | Nephrology | Winston Whitman MD | | | 2018 | Visit | | [address] | | | | | | [address] [place], [place] | | | | | | [address] | | | | | | | | +--------+---------+ + + + as of this encounter Procedures + +--------+ + + + | Procedure Name | Priori | Date/Time | Associated Diagnosis | Comments | | | ty | | | | + +--------+ + + + | PROTEIN / CREATININE | Routin | 01/11/2019 | Chronic kidney | Results for this | | RATIO, URINE | e | 12:00 AM | disease, stage III | procedure are in the | | | | PDT | (moderate) ([facility]) | results section. | + +--------+ + + + | URINALYSIS (REFLEX | Routin | 01/11/2019 | Chronic kidney | Results for this | | TO MICRO) | e | 12:00 AM | disease, stage III | procedure are in the | | | | PDT | (moderate) ([facility]) | results section. | + +--------+ + + + | CBC W/AUTO DIFF | Routin | 01/11/2019 | Chronic kidney | Results for this | | (REFLEX TO MANUAL) | e | 12:00 AM | disease, stage III | procedure are in the | | | | PDT | (moderate) ([facility]) | results section. | + +--------+ + + + | URIC ACID | Routin | 01/11/2019 | Chronic kidney | Results for this | | | e | 12:00 AM | disease, stage III | procedure are in the | | | | PDT | (moderate) ([facility]) | results section. | + +--------+ + + + | BASIC METABOLIC | Routin | 01/11/2019 | Chronic kidney | Results for this | | PANEL | e | 12:00 AM | disease, stage III | procedure are in the | | | | PDT | (moderate) ([facility]) | results section. | + +--------+ + + + in this encounter Results Urinalysis (reflex to micro) (01/11/2019) + + + + + | Component | Value | Ref Range | Performed At | + + + + + | COLOR UA | Yellow | | [facility] | | | | | LABORATORY | + + + + + | CLARITY | Slightly Cloudy | | [facility] | | | | | LABORATORY | + + + + + | SPECIFIC | 1.011 | 1.005 - 1.030 | [facility] | | GRAVITY,URINE | | | LABORATORY | + + + + + | LEUKOCYTE ESTERASE | Comment: trace | | [facility] | | | | | LABORATORY | + + + + + | NITRITE | Negative | | [facility] | | | | | LABORATORY | + + + + + | UROBILINOGEN | Normal | | [facility] | | | | | LABORATORY | + + + + + | PROTEIN | Comment: >300 | | [facility] | | | | | LABORATORY | + + + + + | PH,URINE | 5 | 5 - 9 | [facility] | | | | | LABORATORY | + + + + + | BLOOD | Comment: small | | [facility] | | | | | LABORATORY | + + + + + | KETONES | neg | | [facility] | | | | | LABORATORY | + + + + + | BILIRUBIN | Negative | | [facility] | | | | | LABORATORY | + + + + + | GLUCOSE | Comment: small | | [facility] | | | | | LABORATORY | + + + + + + + | Specimen | + + | Urine | + + + + + + + | Performing | Address | City/State/Zipcode | Phone Number | | Organization | | | | + + + + + | [facility] | [address] | [place] [address] | | | LABORATORY | 13 | | | + + + + + Uric acid (01/11/2019) + +-------+ + + | Component | Value | Ref Range | Performed At | + +-------+ + + | URIC ACID | 7.3 | 4.4 - 7.6 | [facility] | | | | | LABORATORY | + +-------+ + + + + | Specimen | + + | Blood | + + + + + + + | Performing | Address | City/State/Zipcode | Phone Number | | Organization | | | | + + + + + | [facility] | [address] | [place] [address] | | | LABORATORY | 13 | | | + + + + + Protein / creatinine ratio, urine (01/11/2019) + + + + + | Component | Value | Ref Range | Performed At | + + + + + | UR | 5,966.8 (A) | 0 - 150 | [facility] | | PROTEIN/CREATININE | | | LABORATORY | + + + + + + + | Specimen | + + | Urine - Urine, | | Unspecified Source | + + + + + | Narrative | Performed At | + + + | PROTEIN, URINE - 399 - 0.0 - 50.0 CREATININE, URINE - 66.87 | [facility] | | | LABORATORY | + + + + + + + + | Performing | Address | City/State/Zipcode | Phone Number | | Organization | | | | + + + + + | [facility] | [address] | [place] [address] | | | LABORATORY | 13 | | | + + + + + CBC W/Auto Diff (Reflex to Manual) (01/11/2019) + + + + + | Component | Value | Ref Range | Performed At | + + + + + | WBC | 7.3 | 4.5 - 11.0 10^3/mL | [facility] | | | | | LABORATORY | + + + + + | RBC | 3.22 (A) | 4.3 - 5.7 10^6/ L | [facility] | | | | | LABORATORY | + + + + + | HGB | 9.7 (A) | 13.5 - 18.0 g/dL | [facility] | | | | | LABORATORY | + + + + + | HCT | 29.6 (A) | 41 - 50 % | [facility] | | | | | LABORATORY | + + + + + | MCV | 92.1 | 81 - 99 fL | [facility] | | | | | LABORATORY | + + + + + | MCH | 30 | 27 - 33 pg | [facility] | | | | | LABORATORY | + + + + + | MCHC | 33 | 30 - 36 g/dL | [facility] | | | | | LABORATORY | + + + + + | PLT | 255 | 140 - 440 K/ L | [facility] | | | | | LABORATORY | + + + + + | RDW SD | 17.0 (A) | 10.5 - 15.0 % | [facility] | | | | | LABORATORY | + + + + + | MPV | | fL | [facility] | | | | | LABORATORY | + + + + + | DIFF TYPE | | | [facility] | | | | | LABORATORY | + + + + + | NEUTROPHILS | 49.5 | 39 - 80 % | [facility] | | | | | LABORATORY | + + + + + | LYMPHOCYTES | 36.6 | 24 - 44 % | [facility] | | | | | LABORATORY | + + + + + | MONOCYTES | 7.8 | 0 - 12 % | [facility] | | | | | LABORATORY | + + + + + | EOSINOPHILS | 3.5 | 0 - 6 % | [facility] | | | | | LABORATORY | + + + + + | BASOPHILS | 2.6 (A) | 0 - 2 % | [facility] | | | | | LABORATORY | + + + + + | NEUTROPHILS ABS | | / L | [facility] | | | | | LABORATORY | + + + + + | LYMPHOCYTES ABS | | / L | [facility] | | | | | LABORATORY | + + + + + | MONOCYTES ABS | | / L | [facility] | | | | | LABORATORY | + + + + + | EOSINOPHILS ABS | | / L | [facility] | | | | | LABORATORY | + + + + + | BASOPHILS ABS | | / L | [facility] | | | | | LABORATORY | + + + + + + + | Specimen | + + | Blood | + + + + + + + | Performing | Address | City/State/Zipcode | Phone Number | | Organization | | | | + + + + + | [facility] | [address] | [place] [address] | | | LABORATORY | 13 | | | + + + + + Basic metabolic panel (01/11/2019) + + + + + | Component | Value | Ref Range | Performed At | + + + + + | GLUCOSE | 182 (A) | 70 - 100 mg/dL | [facility] | | | | | LABORATORY | + + + + + | BUN | 21 | 6 - 23 mg/dL | [facility] | | | | | LABORATORY | + + + + + | CREATININE | 1.50 (A) | 0.60 - 1.35 mg/dL | [facility] | | | | | LABORATORY | + + + + + | BUN/CREAT | 14.0 | 6.0 - 28.6 | [facility] | | | | | LABORATORY | + + + + + | CALCIUM | 8.1 (A) | 8.5 - 10.3 mg/dL | [facility] | | | | | LABORATORY | + + + + + | SODIUM | 138 | 132 - 143 mmol/L | [facility] | | | | | LABORATORY | + + + + + | POTASSIUM | 5.5 (A) | 3.6 - 5.1 mmol/L | [facility] | | | | | LABORATORY | + + + + + | CHLORIDE | 115 (A) | 95 - 112 mmol/L | [facility] | | | | | LABORATORY | + + + + + | CO2 | 18 (A) | 19 - 31 mmol/L | [facility] | | | | | LABORATORY | + + + + + | ANION GAP AGAP | 10.5 | 7 - 21 mmol/L | [facility] | | | | | LABORATORY | + + + + + | EGFR | 55 | mg/dL | [facility] | | | | | LABORATORY | + + + + + + + | Specimen | + + | Blood | + + + + + + + | Performing | Address | City/State/Zipcode | Phone Number | | Organization | | | | + + + + + | [facility] | [address] | [place] [address] | | | LABORATORY | 13 | | | + + + + + in this encounter Visit Diagnoses + + | Diagnosis | + + | Chronic kidney disease, stage III (moderate) (HCC) | + + | Chronic kidney disease, Stage III (moderate) | + +"
--- OUTSIDE RECORDS SUMMARY | ~2019-01-21 | XMS | Encounter Summary ---
Demographics + + + | Address | [address] [facility] | | | [place] [address] | + + + | Home Phone | | + + + | Preferred Language | Unknown | + + + | Marital Status | Unknown | + + + | Jainism Affiliation | Unknown | + + + | Race | Unknown | + + + | Ethnic Group | Unknown | + + + Author + + + | Author | [facility] [employer] | + + + | Organization | [facility] | + + + | Address | Unknown | + + + | Phone | Unavailable | + + + Support + + +---------+ + | Name | Relationship | Address | Phone | + + +---------+ + | Gia Ramos | ECON | Unknown | | + + +---------+ + Care Team Providers + +------+ + | Care Sales Administration Manager Name | Role | Phone | [...] | | | | | [place] [address] | | | | | | [phone] | | | +--------+ + + + [...] | | | | | [place] [address] | | | | | | [phone] | | | | | | | [...]
--- OUTSIDE RECORDS SUMMARY | ~2019-01-21 | XMS | Encounter Summary ---
Demographics + + + | Address | [address] [facility] | | | [place] [address] | + + + | Home Phone | | + + + | Preferred Language | Unknown | + + + | Marital Status | Unknown | + + + | Scientology Affiliation | Unknown | + + + | Race | Unknown | + + + | Ethnic Group | Unknown | + + + Author + + + | Author | [facility] | + + + | Organization | [facility] | + + + | Address | Unknown | + + + | Phone | Unavailable | + + + Support + + +---------+ + | Name | Relationship | Address | Phone | + + +---------+ + | Gia Ramos | ECON | Unknown | | + + +---------+ + Care Team Providers + +------+ + | Care Speech Language Pathologist Prn Name | Role | Phone | + +------+ + | Erich Yates | PCP | | + +------+ + Encounter Details +--------+ + + + + | Date | Type | Department | Care Team | Description | +--------+ + + + + | 11/21/ | Documentati | [facility] | [place], | | | 2019 | on Only | [address] | [address] | | | | | [address] | | | | | | [place] [address] | | | | | | [phone] | | | +--------+ + + + [...] | | 2019 | Visit | | [address] | | | | | | [address] | | | | | | [place] [address] | | | | | | [phone] | | | | | | | | +--------+---------+ + + + | 03/19/ | Office | Nephrology | Winston Whitman MD | | | 2018 | Visit | | [address] | | | | | | [address] [place], [place] | | | | | | [address] | | | | | | | | +--------+---------+ + + + as of this encounter Procedures + +--------+ + + + | Procedure Name | Priori | Date/Time | Associated Diagnosis | Comments | | | ty | | | | + +--------+ + + + | CBC W/AUTO DIFF | Routin | 09/13/2018 | | Results for this | | (REFLEX TO MANUAL) | e | 6:20 AM | | [...] + +--------+ + + + | URINE MICROSCOPIC | Routin | 09/13/2018 | | Results for this | | ONLY | e | 5:43 AM | | procedure are in the | | | | PST | | results section. | + +--------+ + + + | MICROALBUMIN / | Routin | 05/24/2018 | | Results for this | | CREATININE URINE | e | 9:25 AM | | procedure are in the | | RATIO | | PDT | | results section. | + +--------+ + + + | URINE MICROSCOPIC | Routin | 05/24/2018 | | Results for this | | ONLY | e | 9:25 AM | | procedure are in the | | | | PDT | | results section. | + +--------+ + + + | CBC W/AUTO DIFF | Routin | 05/24/2018 | | Results for this | | (REFLEX TO MANUAL) | e | 9:25 AM | | [...] + + + in this encounter Results Comprehensive metabolic panel (09/13/2018 6:20 AM) + + + + + | Component | Value | Ref Range | Performed At | + + + + + | GLUCOSE | 230 (A) | 70 - 100 mg/dL | | + + + + + | BUN | 45 (A) | 6 - 23 mg/dL | | + + + + + | CREATININE | 2.07 (A) | 0.60 - 1.35 mg/dL | | + + + + + | BUN/CREAT | 21.7 | 6.0 - 28.6 | | + + + + + | CALCIUM | 8.3 (A) | 8.5 - 10.3 mg/dL | | + + + + + | TOTAL PROTEIN | 6.4 | 6.0 - 8.3 g/dL | | + + + + + | Albumin | 3.2 (A) | 3.5 - 5.0 | | + + + + + | GLOBULIN | 3.2 | 1.8 - 3.5 | | + + + + + | A/G | 1.0 (A) | 1.1 - 2.4 | | + + + + + | TBIL | 0.2 | 0.0 - 1.2 mg/dL | | + + + + + | ALK PHOS | 93 | 31 - 120 | | + + + + + | ALT | 23 | 7 - 52 | | + + + + + | AST | 25 | 13 - 39 U/L | | + + + + + | SODIUM | 135 | 132 - 143 mmol/L | | + + + + + | POTASSIUM | 5.4 (A) | 3.6 - 5.1 mmol/L | | + + + + + | CHLORIDE | 106 | 95 - 112 mmol/L | | + + + + + | CO2 | 21 | 19 - 31 mmol/L | | + + + + + | ANION GAP AGAP | 13.4 | 7 - 21 mmol/L | | + + + + + | EGFR | 38 (A) | 60 - 140 mg/dL | | + + + + + + + | Specimen | + + | Blood | + + Lipase (09/13/2018 6:20 AM) + +-------+ + + | Component | Value | Ref Range | Performed At | + +-------+ + + | LIPASE | 38 | 11 - 82 units/L | | + +-------+ + + + + | Specimen | + + | Blood | + + CBC W/Auto Diff (Reflex to Manual) (09/13/2018 6:20 AM) + + + + + | Component | Value | Ref Range | Performed At | + + + + + | WBC | 9.4 | 4.5 - 11.0 10^3/mL | | + + + + + | RBC | 3.41 (A) | 4.3 - 5.7 10^6/ L | | + + + + + | HGB | 10.2 (A) | 13.5 - 18.0 g/dL | | + + + + + | HCT | 31.3 (A) | 41 - 50 % | | + + + + + | MCV | 91.6 | 81 - 99 fL | | + + + + + | MCH | 30 | 27 - 33 pg | | + + + + + | MCHC | 33 | 30 - 36 g/dL | | + + + + + | PLT | 212 | 140 - 440 K/ L | | + + + + + | RDW SD | 14.2 | 10.5 - 15.0 % | | + + + + + | MPV | | fL | | + + + + + | DIFF TYPE | | | | + + + + + | NEUTROPHILS | 65.7 | 39 - 80 % | | + + + + + | LYMPHOCYTES | 16.4 (A) | 24 - 44 % | | + + + + + | MONOCYTES | 10.8 | 0 - 12 % | | + + + + + | EOSINOPHILS | 5.4 | 0 - 6 % | | + + + + + | BASOPHILS | 1.7 | 0 - 2 % | | + + + + + | NEUTROPHILS ABS | | / L | | + + + + + | LYMPHOCYTES ABS | | / L | | + + + + + | MONOCYTES ABS | | / L | | + + + + + | EOSINOPHILS ABS | | / L | | + + + + + | BASOPHILS ABS | | / L | | + + + + + + + | Specimen | + + | Blood | + + Urine microscopic only (09/13/2018 5:43 AM) + + + + + | Component | Value | Ref Range | Performed At | + + + + + | COLOR UA | Yellow | | | + + + + + | CLARITY | Clear | | | + + + + + | Specific [place], UA | 1.014 | 1.005 - 1.030 | | + + + + + | LEUKOCYTE ESTERASE | Negative | | | + + + + + | NITRITE | Negative | | | + + + + + | UROBILINOGEN | Normal | | | + + + + + | PROTEIN | TraceComment: 100 | | | + + + + + | PH,URINE | 5 | 5 - 9 | | + + + + + | BLOOD | Positive | | | + + + + + | KETONES | Negative | | | + + + + + | BILIRUBIN | Negative | | | + + + + + | GLUCOSE | Trace | | | + + + + + + + | Specimen | + + | Urine | + + Albumin/Creat Ratio (05/24/2018 9:25 AM) + + + + + | Component | Value | Ref Range | Performed At | + + + + + | ALBUMIN/CREAT RATIO | 2,275.2 (A) | 0 - 30 | | + + + + + + + | Specimen | + + | Urine | + + Comprehensive metabolic panel (05/24/2018 9:25 AM) + + + + + | Component | Value | Ref Range | Performed At | + + + + + | GLUCOSE | 98 | 70 - 100 mg/dL | | + + + + + | BUN | 45 (A) | 6 - 23 mg/dL | | + + + + + | CREATININE | 1.44 (A) | 0.60 - 1.35 mg/dL | | + + + + + | BUN/CREAT | 31.3 (A) | 6.0 - 28.6 | | + + + + + | CALCIUM | 9.3 | 8.5 - 10.3 mg/dL | | + + + + + | TOTAL PROTEIN | 6.2 | 6.0 - 8.3 g/dL | | + + + + + | Albumin | 3.3 (A) | 3.5 - 5.0 | | + + + + + | GLOBULIN | 2.9 | 1.8 - 3.5 | | + + + + + | A/G | 1.1 | 1.1 - 2.4 | | + + + + + | TBIL | 0.3 | 0.0 - 1.2 mg/dL | | + + + + + | ALK PHOS | 77 | 31 - 120 | | + + + + + | ALT | 13 | 7 - 25 U/L | | + + + + + | AST | 18 | 13 - 39 U/L | | + + + + + | SODIUM | 139 | 132 - 143 mmol/L | | + + + + + | POTASSIUM | 4.8 | 3.6 - 5.1 mmol/L | | + + + + + | CHLORIDE | 102 | 95 - 112 mmol/L | | + + + + + | CO2 | 24 | 19 - 31 mmol/L | | + + + + + | ANION GAP AGAP | 17.8 | 7 - 21 mmol/L | | + + + + + | EGFR | 58 (A) | 60 - 140 mg/dL | | + + + + + + + | Specimen | + + | Blood | + + CBC W/Auto Diff (Reflex to Manual) (05/24/2018 9:25 AM) + + + + + | Component | Value | Ref Range | Performed At | + + + + + | WBC | 9.1 | 4.5 - 11.0 10^3/mL | | + + + + + | RBC | 3.94 (A) | 4.3 - 5.7 10^6/ L | | + + + + + | HGB | 11.7 (A) | 13.5 - 18.0 g/dL | | + + + + + | HCT | 38.3 (A) | 41 - 50 % | | + + + + + | MCV | 92.1 | 81 - 99 fL | | + + + + + | MCH | 30 | 27 - 33 pg | | + + + + + | MCHC | 32 | 30 - 35 g/dL | | + + + + + | PLT | 244 | 140 - 440 K/ L | | + + + + + | RDW SD | 14.6 | 10.5 - 15.0 % | | + + + + + | MPV | | fL | | + + + + + | DIFF TYPE | | | | + + + + + | NEUTROPHILS | 59.6 | 39 - 80 % | | + + + + + | LYMPHOCYTES | 26.2 | 24 - 44 % | | + + + + + | MONOCYTES | 7.5 | 0 - 12 % | | + + + + + | EOSINOPHILS | 4.8 | 0 - 6 % | | + + + + + | BASOPHILS | 1.9 | 0 - 2 % | | + + + + + | NEUTROPHILS ABS | | / L | | + + + + + | LYMPHOCYTES ABS | | / L | | + + + + + | MONOCYTES ABS | | / L | | + + + + + | EOSINOPHILS ABS | | / L | | + + + + + | BASOPHILS ABS | | / L | | + + + + + + + | Specimen | + + | Blood | + + Urine microscopic only (05/24/2018 9:25 AM) + + + + + | Component | Value | Ref Range | Performed At | + + + + + | COLOR UA | Yellow | | | + + + + + | CLARITY | Clear | | | + + + + + | Specific [place], UA | 1.013 | 1.005 - 1.030 | | + + + + + | LEUKOCYTE ESTERASE | Trace | | | + + + + + | NITRITE | Negative | | | + + + + + | UROBILINOGEN | Normal | | | + + + + + | PROTEIN | TraceComment: 300 | | | + + + + + | PH,URINE | 5 | 5 - 9 | | + + + + + | BLOOD | Negative | | | + + + + + | KETONES | Negative | | | + + + + + | BILIRUBIN | Negative | | | + + + + + | GLUCOSE | Negative | | | + + + + + + + | Specimen | + + | Urine | + + in this encounter Visit Diagnoses Not on filein this encounter"
--- OUTSIDE RECORDS SUMMARY | ~2019-01-21 | XMS | Encounter Summary ---
Demographics + + + | Address | [address] [facility] | | | [place] [address] | + + + | Home Phone | | + + + | Preferred Language | Unknown | + + + | Marital Status | Unknown | + + + | Voodoo Affiliation | Unknown | + + + | Race | Unknown | + + + | Ethnic Group | Unknown | + + + Author + + + | Author | [facility] | + + + | Organization | [facility] | + + + | Address | Unknown | + + + | Phone | Unavailable | + + + Support + + +---------+ + | Name | Relationship | Address | Phone | + + +---------+ + | Gia Ramos | ECON | Unknown | | + + +---------+ + Care Team Providers + +------+ + | Care Senior Medical Technologist Name | Role | Phone | + [...] | [address] | | (moderate) ([facility]) | | | | [place] [address] | | | | | | [phone] | | | +--------+ + + + [...] [address] | | | | | | [place] [address] | | | | | | [phone] | | | | | | | | +--------+---------+ + + + | 03/19/ | Office | Nephrology | Winston Whitman MD | | | 2018 | Visit | | [address] | | | | | | [address] [place], [place] | | | | | | [address] | | | | | | | [...] | | | | PDT | (moderate) ([facility]) | results section. | + +--------+ + + + | URINALYSIS (REFLEX | Routin | 01/11/2019 | Chronic kidney | Results for this | | TO MICRO) | e | 12:00 AM | disease, stage III | procedure are in the | | | | PDT | (moderate) ([facility]) | results section. | + +--------+ + + + | CBC W/AUTO DIFF | Routin | 01/11/2019 | Chronic kidney | Results for this | | (REFLEX TO MANUAL) | e | 12:00 AM | disease, stage III | procedure are in the | | | | PDT | (moderate) ([facility]) | results section. | + +--------+ + + + | URIC ACID | Routin | 01/11/2019 | Chronic kidney | Results for this | | | e | 12:00 AM | disease, stage III | procedure are in the | | | | PDT | (moderate) ([facility]) | results section. | + +--------+ + + + | BASIC METABOLIC | Routin | 01/11/2019 | Chronic kidney | Results for this | | PANEL | e | 12:00 AM | disease, stage III | procedure are in the | | | | PDT | (moderate) ([facility]) | results section. | + +--------+ + [...] | [address] | [place] [address] | | | LABORATORY | 13 | [...] | [address] | [place] [address] | | | LABORATORY | 13 | [...] | [address] | [place] [address] | | | LABORATORY | 13 | [...] [facility] | [address] | [place] [address] | | | LABORATORY | 13 | [...] | [address] | [place] [address] | | | LABORATORY | 13 | | | + + + + + in this encounter Visit Diagnoses + + | Diagnosis | + + | Chronic kidney disease, stage III (moderate) (HCC) | + + | Chronic kidney disease, Stage III (moderate) | + +"
--- OUTSIDE RECORDS SUMMARY | ~2019-01-21 | XMS | Encounter Summary ---
Demographics + + + | Address | [address] [facility] | | | [place] [address] | + + + | Home Phone | | + + + | Preferred Language | Unknown | + + + | Marital Status | Unknown | + + + | Sikh Affiliation | Unknown | + + + | Race | Unknown | + + + | Ethnic Group | Unknown | + + + Author + + + | Author | [facility] | + + + | Organization | [facility] | + + + | Address | Unknown | + + + | Phone | Unavailable | + + + Support + + +---------+ + | Name | Relationship | Address | Phone | + + +---------+ + | Gia Ramos | ECON | Unknown | | + + +---------+ + Care Team Providers + +------+ + | Care Sample Body Builder Name | Role | Phone | [...] | | | | | [place] [address] | | | | | | [phone] | | | +--------+ + + + [...] | 2019 | Visit | | [address] | | | | | | [address] | | | | | | [place] [address] | | | | | | [phone] | | | | | | | | +--------+---------+ + + + | 03/19/ | Office | Nephrology | Winston Whitman MD | | | 2018 | Visit | | [address] | | | | | | [address] [place], [place] | | | | | | [address] | | | | | | | [...] + + + + + | Specific [place], UA | 1.014 | 1.005 - 1.030 [...] + + + + + | Specific [place], UA | 1.013 | 1.005 - 1.030 [...]
--- OUTSIDE RECORDS SUMMARY | ~2019-01-21 | XMS | Encounter Summary ---
Demographics + + + | Address | [address] [facility] | | | [place] [address] | + + + | Home Phone | | + + + | Preferred Language | Unknown | + + + | Marital Status | Unknown | + + + | Orthodoxy Affiliation | Unknown | + + + | Race | Unknown | + + + | Ethnic Group | Unknown | + + + Author + + + | Author | [email or web address] | + + + | Organization | [facility] | + + + | Address | Unknown | + + + | Phone | Unavailable | + + + Support + + +---------+ + | Name | Relationship | Address | Phone | + + +---------+ + | Gia Ramos | ECON | Unknown | | + + +---------+ + Care Team Providers + +------+ + | Care Clerk Checker Name | Role | Phone | + +------+ + | Erich Yates | PCP | | + +------+ + Reason for Visit +--------+ + | Reason | Comments | +--------+ + | Other | Referral from VIKI Keith | +--------+ + Encounter Details +--------+ + + + + | Date | Type | Department | Care Team | Description | +--------+ + + + + | 11/08/ | Documentati | [facility] | Winston Whitman MD | Other (Referral from | | 2019 | on Only | [place] [address] | [address] | [place], | | | | [address] | [address] [place], [place] | [place]) | | | | [place] [address] | [address] | | | | | [phone] | | | +--------+ + + + [...] | | | | | [place] [address] | | | | | | [phone] | | | | | | | | +--------+---------+ + + + | 03/19/ | Office | Nephrology | Winston Whitman MD | | | 2018 | Visit | | [address] | | | | | | [address] [place] | | | | | | [id number] | | | | | | | | +--------+---------+ + + + as of this encounter Visit Diagnoses Not on filein this encounter"
--- OUTSIDE RECORDS SUMMARY | ~2019-01-21 | XMS | Encounter Summary ---
Demographics + + + | Address | [address] [facility] | | | [place] [address] | + + + | Home Phone | | + + + | Preferred Language | Unknown | + + + | Marital Status | Unknown | + + + | Restorationist Affiliation | Unknown | + + + | Race | Unknown | + + + | Ethnic Group | Unknown | + + + Author + + + | Author | [facility] | + + + | Organization | [facility] | + + + | Address | Unknown | + + + | Phone | Unavailable | + + + Support + + +---------+ + | Name | Relationship | Address | Phone | + + +---------+ + | Gia Ramos | ECON | Unknown | | + + +---------+ + Care Team Providers + +------+ + | Care Liquor Rectifier Name | Role | Phone | + +------+ + | Erich Yates | PCP | | + +------+ + Reason for Visit + + + | Reason | Comments | + + + | Labs Only | [facility] - 01/11/19 - [email or web address] | + + + Encounter Details +--------+ + + + + | Date | Type | Department | Care Team | Description | +--------+ + + + + | 01/12/ | Documentati | [facility] | Dony, | Labs Only ([facility] | | 2019 | on Only | [address] | [address] | - 01/11/19 - brady) | | | | [address] | | | | | | [place] [address] | | | | | | [phone] | | | +--------+ + + + [...] | | | | | [place] [address] | | | | | | [phone] | | | | | | | | +--------+---------+ + + + | 03/19/ | Office | Nephrology | Winston Whitman MD | | | 2018 | Visit | | [address] | | | | | | [address] [place] | | | | | | [address] | | | | | | | | +--------+---------+ + + + as of this encounter Visit Diagnoses Not on filein this encounter"
--- OUTSIDE RECORDS SUMMARY | ~2019-01-21 | XMS | Clinical Summary ---
Demographics + + + | Address | [address] [facility] | | | [place] [address] | + + + | Home Phone | | + + + | Preferred Language | Unknown | + + + | Marital Status | Unknown | + + + | Roman Catholic Affiliation | Unknown | + + + | Race | Unknown | + + + | Ethnic Group | Unknown | + + + Author + + + | Author | [facility] | + + + | Organization | [facility] | + + + | Address | Unknown | + + + | Phone | Unavailable | + + + Support + + +---------+ + | Name | Relationship | Address | Phone | + + +---------+ + | Gia Ramos | ECON | Unknown | | + + +---------+ + Care Team Providers + +------+ + | Care Scientific Editor Name | Role | Phone | [...] | CKD (chronic kidney disease), stage III ([facility]) | 01/15/2019 | + + + | [...] (HCC) | 01/15/2019 | + + + Encounters +--------+ + + + + | Date | Type | Specialty | Care Team | Description | +--------+ + + + + | 01/15/ | Initial | | Winston Whitman MD | CKD (chronic kidney | | 2019 | consult | | | disease), stage III | | | | | | ([facility]); Nephrotic | | | | | | range proteinuria; | | | | | | 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 ([facility]); | | | | | | Diabetic | | | | | | gastroparesis ([facility]); | | | | | | Stable | | | | | | proliferative | | | | | | diabetic retinopathy | | | | | | of both eyes | | | | | | associated with type | | | | | | 1 diabetes mellitus | | | | | | ([facility]); | | | | | | Hyperkalemia; | | | | | | Electrolyte | | | | | | imbalance risk; | | | | | | Metabolic acidosis; | | | | | | Anemia of chronic | | | | | | renal failure, stage | | | | | | 3 (moderate) ([facility]) | +--------+ + + + + | 01/15/ | Documentati | | Winston Whitman MD | Other ( | | 2019 | on Only | | | Medical History | | | | | | Questionnaire and | | | | | | current med list) | +--------+ + + + + | 01/15/ | Telephone | | [facility] | | | 2018 | | | [address] | | +--------+ + + + + | 01/15/ | Documentati | | [facility] | Labs Only (01/11/19 | 2018 | on Only | | [place] | Urine culture) | +--------+ + + + + | 01/12/ | Documentati | | [place] | Labs Only ([facility] | 2018 | on Only | | [address] | - 01/11/19 - brady) | +--------+ + + + + | 01/12/ | Orders Only | | [place] | Chronic kidney | | 2018 | | | [place] | disease, stage III | | | | | | (moderate) (HCC) | +--------+ + + + + | 01/05/ | Telephone | | [place]rick, | | | 2018 | | | [address] [place] | | +--------+ + + + + | 11/21/ | Documentati | | [place], | | | 2018 | on Only | | [address] | | +--------+ + + + + | 11/08/ | Documentati | | Winston Whitman MD | Other (Referral from | | 2018 | on Only | | | [place], | | | | | | [place]) | +--------+ + + + + from [...] + + | 02/23/ | Office | | Ted Carlos, | | | 2018 | Visit | | [address] | | | | | | [address] | | | | | | [place] [address] | | | | | | [phone] | | | | | | | | +--------+---------+ + + + | 03/19/ | Office | | Winston Whitman MD | | | 2018 | Visit | | [address] | | | | | | [address] [place], [place] | | | | | | [address] | | | | | | | [...] | Vaccine: Influenza | Completed | 09/20/2018, 07/02/2015 | | + + + + + [...] | | | | PDT | (moderate) ([facility]) | results section. | + +--------+ + + + | URIC ACID | Routin | 01/11/2019 | Chronic kidney | Results for this | | | e | 12:00 AM | disease, stage III | procedure are in the | | | | PDT | (moderate) (HCC) | results section. | + +--------+ + + + | PROTEIN / CREATININE | Routin | 01/11/2019 | Chronic kidney | Results for this | | RATIO, URINE | e | 12:00 AM | disease, stage III | procedure are in the | | | | PDT | (moderate) ([facility]) | results section. | + +--------+ + + + | CBC W/AUTO DIFF | Routin | 01/11/2019 | Chronic kidney | Results for this | | (REFLEX TO MANUAL) | e | 12:00 AM | disease, stage III | procedure are in the | | | | PDT | (moderate) ([facility]) | results section. | + +--------+ + + + | BASIC METABOLIC | Routin | 01/11/2019 | Chronic kidney | Results for this | | PANEL | e | 12:00 AM | disease, stage III | procedure are in the | | | | PDT | (moderate) ([facility]) | results section. | + +--------+ + + + | URINE CULTURE | Routin | 01/11/2019 | | Results for this | | | e | 12:00 AM | | procedure are in the | | | | PDT | | results section. | + +--------+ + + + from Last 3 Months Results Protein / creatinine ratio, urine (01/11/2019) + [...] | [address] | [place] [address] | | | LABORATORY | 13 | | | + + + + + Urinalysis (reflex to micro) (01/11/2019) + + [...] | [facility] | [address] | [place] [address] | | | LABORATORY | 13 | [...] | [address] | [place] [address] | | | LABORATORY | 13 | | | + + + + + Urine culture (01/11/2019) + + + + [...] + + | Urine | + + Uric acid (01/11/2019) + +-------+ [...] | [address] | [place] [address] | | | LABORATORY | 13 | [...] | [address] | [place] [address] | | | LABORATORY | 13 | [...] + +--------+ +------+-------+ + | MEDICAID | SUSIEER | [id number] | | | [address] | | | N | | | | [place], [place] | | | [place] | | | | [address] | | | [employer] | | | | | + +--------+ [...] Self | [birth year] Home: | [address] | | | al/Fam | | 1990 | [phone] [address] [place], | | | [place] | | | [phone] | [place] [address] | + +--------+ +--------+ + +
--- OUTSIDE RECORDS SUMMARY | ~2019-01-21 | XMS | Clinical Summary ---
Demographics + + + | Address | [address] | | | [place] [address] | + + + | Home Phone [...] Gia Ramos | ECON | [address] | | | | | [place] | | | | | [address] | | + + + + + | Gia Ramos | ECON | Unknown | | + + + + + Care Team Providers + +------+ + | Care Professor Of Special Education Name | Role | Phone | [...] Right: | JOYCE | | 07/14/ | [id number] | | - [id number]: | | | [employer] | | 2020 | / | | Qty: 1 on 09/19/2018 by | | Rufus | - JOYCE | | | /[id number] | | Tc Mora MD | | [...] | [employer] | [facility] | [id number] | | [phone] | | [employer] | [...] | Self [birth year] | [address] | | | al/Fam | | 1991 | [phone] | [address] [place], | | | [place] | | | 0 (Home) | [place] [address] | + +--------+ +--------+ + + Advance Directives Patient has advance care planning documents, and code status on file. For more information, please contact:[facility] [place] [address] + + + + + | Code Status | Date | Date | Comments | | | Activated | Inactivated | | + + + + + | Full Code | 09/20/2018 | 09/20/2018 | | | | 2:00 | 17:02 | | + + + + +
--- OUTSIDE RECORDS SUMMARY | ~2019-01-21 | XMS | Encounter Summary ---
Demographics + + + | Address | [address] [facility] | | | [place] [address] | + + + | Home Phone | | + + + | Preferred Language | Unknown | + + + | Marital Status | Unknown | + + + | Sikhism Affiliation | Unknown | + + + | Race | Unknown | + + + | Ethnic Group | Unknown | + + + Author + + + | Author | [facility] | + + + | Organization | [facility] | + + + | Address | Unknown | + + + | Phone | Unavailable | + + + Support + + +---------+ + | Name | Relationship | Address | Phone | + + +---------+ + | Gia Ramos | ECON | Unknown | | + + +---------+ + Care Team Providers + +------+ + | Care Alteration Manager Name | Role | Phone | [...] | | 2019 | on Only | [place] [address] | [place], | | | | [address] | [address] [place], [place] | [place]) | | | | [place] [address] | [address] | | | | | [phone] | | | +--------+ + + + [...] | | | | | [place] [address] | | | | | | [phone] | | | | | | | | +--------+---------+ + + + | 03/19/ | Office | Nephrology | Winston Whitman MD | | | 2018 | Visit | | [address] | | | | | | [address] [place] | | | | | | [phone] | | | | | | | | +--------+---------+ + + + as of this encounter Visit Diagnoses Not on filein this encounter"
--- OUTSIDE RECORDS SUMMARY | ~2019-01-21 | XMS | Clinical Summary ---
Demographics + + + | Address | [address] [facility] | | | [place] [address] | + + + | Home Phone | | + + + | Preferred Language | Unknown | + + + | Marital Status | Unknown | + + + | Evangelical Affiliation | Unknown | + + + | Race | Unknown | + + + | Ethnic Group | Unknown | + + + Author + + + | Author | [facility] | + + + | Organization | [facility] | + + + | Address | Unknown | + + + | Phone | Unavailable | + + + Support + + +---------+ + | Name | Relationship | Address | Phone | + + +---------+ + | Gia Ramos | ECON | Unknown | | + + +---------+ + Care Team Providers + +------+ + | Care Industrial Relations Representative Name | Role | Phone | [...] CKD (chronic kidney disease), stage III ([facility]) | 01/15/2019 | + + [...] | | | | | | ([facility]); Nephrotic | | | | | | range proteinuria; | | | | | | 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 ([facility]); | | | | | | Diabetic | | | | | | gastroparesis ([facility]); | | | | | | Stable | | | | | | proliferative | | | | | | diabetic retinopathy | | | | | | of both eyes | | | | | | associated with type | | | | | | 1 diabetes mellitus | | | | | | ([facility]); | | | | | | Hyperkalemia; | | | | | | Electrolyte | | | | | | imbalance risk; | | | | | | Metabolic acidosis; | | | | | | Anemia of chronic | | | | | | renal failure, stage | | | | | | 3 (moderate) ([facility]) | +--------+ + + + + | [...] | 2018 | on Only | | [address] | Urine culture) | +--------+ + [...] [address] | | | | | | [place] [address] | | | | | | [phone] | | | | | | | | +--------+---------+ + + + | 03/19/ | Office | | Winston Whitman MD | | | 2018 | Visit | | [address] | | | | | | [address] [place], [place] | | | | | | [address] | | | | | | | [...] | | | | PDT | (moderate) ([facility]) | results section. | + [...] | | | | PDT | (moderate) ([facility]) | results section. | + +--------+ + + + | CBC W/AUTO DIFF | Routin | 01/11/2019 | Chronic kidney | Results for this | | (REFLEX TO MANUAL) | e | 12:00 AM | disease, stage III | procedure are in the | | | | PDT | (moderate) ([facility]) | results section. | + +--------+ + + + | BASIC METABOLIC | Routin | 01/11/2019 | Chronic kidney | Results for this | | PANEL | e | 12:00 AM | disease, stage III | procedure are in the | | | | PDT | (moderate) ([facility]) | results section. | + [...] | [address] | [place] [address] | | | LABORATORY | 13 | [...] | [address] | [place] [address] | | | LABORATORY | 13 | [...] | [address] | [place] [address] | | | LABORATORY | 13 | [...] | [address] | [place] [address] | | | LABORATORY | 13 | [...] | [address] | [place] [address] | | | LABORATORY | 13 | [...] +------+-------+ + | MEDICAID | SUSIEER | [id number] | | | [address] | | | N | | | | [place], [place] | | | [place] | | | | [address] | | | [employer] | | | | | + +--------+ [...] Self | [birth year] Home: | [address] | | | al/Fam | | 1990 | [phone] | [address] [place], | | | lucian | | | [address] | [place] [address] | + +--------+ +--------+ + +
--- OUTSIDE RECORDS SUMMARY | ~2019-01-21 | XMS | Encounter Summary ---
Demographics + + + | Address | [address] [facility] | | | [place] [address] | + + + | Home Phone | | + + + | Preferred Language | Unknown | + + + | Marital Status | Unknown | + + + | Gnosticism Affiliation | Unknown | + + + | Race | Unknown | + + + | Ethnic Group | Unknown | + + + Author + + + | Author | [facility] | + + + | Organization | [facility] | + + + | Address | Unknown | + + + | Phone | Unavailable | + + + Support + + +---------+ + | Name | Relationship | Address | Phone | + + +---------+ + | Gia Ramos | ECON | Unknown | | + + +---------+ + Care Team Providers + +------+ + | Care Horse Race Timer Name | Role | Phone | + +------+ + | Erich Yates | PCP | | + +------+ + Reason for Referral Consultation (Urgent) + + + + + + + | Status | Reason | Specialty | Diagnoses / | Referred By | Referred To | | | | | Procedures | Contact | Contact | + + + + + + + | Authorized | Specialty | Endocrinology | Diagnoses | [facility] | [facility] | | | Services | | CKD | Winston Sagastume MD | Endocrinology | | | Required | | (chronic | [address] | | | | | kidney | [address] | [place] | | | | | disease), | [place], [place] | [place] [address] | | | | | stage III | [address] | [place], [place] | | | | | (HCC) | Phone: | [phone] | | | | | Nephrotic | [phone] | Phone: | | | | | range | Fax: | [phone] | | | | | proteinuria | [phone] | Fax: | | | | | Type 1 | | [phone] | | | | | diabetes | | | | | | | mellitus | | | | | | | with | | | | | | | nephropathy | | | | | | | (HCC) | | | | | | | Anemia of | | | | | | | chronic | | | | | | | renal | | | | | | | failure, | | | | | | | stage 3 | | | | | | | (moderate) | | | | | | | (HCC) | | | + + + + + + + Encounter Details +--------+ + + + + | Date | Type | Department | Care Team | Description | +--------+ + + + + | 01/15/ | Telephone | [facility] | [place], | | | 2018 | | [address] | [address] | | | | | [facility] [address] | | | | | | [place] [address] | | | | | | [phone] | | | +--------+ + + + [...] [address] | | | | | | [address] | | | | | | [place] [address] | | | | | | [phone] | | | | | | | | +--------+---------+ + + + | 03/19/ | Office | Nephrology | Winston Whitman MD | | | 2019 | Visit | | [address] | | | | | | [address] [place], [place] | | | | | | [address] | | | | | | | | +--------+---------+ + + + + +--------+ + + | Name | Priori | Associated Diagnoses | Order Schedule | | | ty | | | + +--------+ + + | US Retroperitoneal complete | Routin | CKD (chronic | Expected: | | | e | kidney disease), | 01/22/2019, Expires: | | | | stage III ([facility]) | 01/16/2020 | | | | Nephrotic range | | | | | proteinuria Type 1 | | | | | diabetes mellitus | | | | | with nephropathy | | | | | (HCC) Anemia of | | | | | chronic renal | | | | | failure, stage 3 | | | | | (moderate) ([facility]) | | + +--------+ + + | Renal function panel | Routin | CKD (chronic | Expected: | | | e | kidney disease), | 03/17/2019, Expires: | | | | stage III (HCC) | 01/16/2020 | | | | Nephrotic range | | | | | proteinuria Type 1 | | | | | diabetes mellitus | | | | | with nephropathy | | | | | ([facility]) Anemia of | | | | | chronic renal | | | | | failure, stage 3 | | | | | (moderate) ([facility]) | | + +--------+ + + | CBC W/Auto Diff (Reflex to | Routin | CKD (chronic | Expected: | | Manual) | e | kidney disease), | 03/17/2019, Expires: | | | | stage III (HCC) | 01/16/2020 | | | | Nephrotic range | | | | | proteinuria Type 1 | | | | | diabetes mellitus | | | | | with nephropathy | | | | | ([facility]) Anemia of | | | | | chronic renal | | | | | failure, stage 3 | | | | | (moderate) ([facility]) | | + +--------+ + + | Iron Panel W/UIBC | Routin | CKD (chronic | Expected: | | | e | kidney disease), | 03/17/2019, Expires: | | | | stage III (HCC) | 01/16/2020 | | | | Nephrotic range | | | | | proteinuria Type 1 | | | | | diabetes mellitus | | | | | with nephropathy | | | | | ([facility]) Anemia of | | | | | chronic renal | | | | | failure, stage 3 | | | | | (moderate) ([facility]) | | + +--------+ + + | Ferritin | Routin | CKD (chronic | Expected: | | | e | kidney disease), | 03/17/2019, Expires: | | | | stage III ([facility]) | 01/16/2020 | | | | Nephrotic range | | | | | proteinuria Type 1 | | | | | diabetes mellitus | | | | | with nephropathy | | | | | ([facility]) Anemia of | | | | | chronic renal | | | | | failure, stage 3 | | | | | (moderate) ([facility]) | | + +--------+ + + | PTH intact no calcium | Routin | CKD (chronic | Expected: | | | e | kidney disease), | 03/17/2019, Expires: | | | | stage III ([facility]) | 01/16/2020 | | | | Nephrotic range | | | | | proteinuria Type 1 | | | | | diabetes mellitus | | | | | with nephropathy | | | | | ([facility]) Anemia of | | | | | chronic renal | | | | | failure, stage 3 | | | | | (moderate) ([facility]) | | + +--------+ + + | Urinalysis (reflex to micro) | Routin | CKD (chronic | Expected: | | | e | kidney disease), | 03/17/2019, Expires: | | | | stage III (HCC) | 01/16/2020 | | | | Nephrotic range | | | | | proteinuria Type 1 | | | | | diabetes mellitus | | | | | with nephropathy | | | | | ([facility]) Anemia of | | | | | chronic renal | | | | | failure, stage 3 | | | | | (moderate) ([facility]) | | + +--------+ + + | Protein / creatinine ratio, urine | Routin | CKD (chronic | Expected: | | | e | kidney disease), | 03/17/2019, Expires: | | | | stage III (HCC) | 01/16/2020 | | | | Nephrotic range | | | | | proteinuria Type 1 | | | | | diabetes mellitus | | | | | with nephropathy | | | | | ([facility]) Anemia of | | | | | chronic renal | | | | | failure, stage 3 | | | | | (moderate) ([facility]) | | + +--------+ + + + +--------+ + + | Name | Priori | Associated Diagnoses | Order Schedule | | | ty | | | + +--------+ + + | Ambulatory referral to | Routin | CKD (chronic | Ordered: 01/15/2019 | | Endocrinology | e | kidney disease), | | | | | stage III ([facility]) | | | | | Nephrotic range | | | | | proteinuria Type 1 | | | | | diabetes mellitus | | | | | with nephropathy | | | | | ([facility]) Anemia of | | | | | chronic renal | | | | | failure, stage 3 | | | | | (moderate) ([facility]) | | + +--------+ + + as of this encounter Visit Diagnoses + + | Diagnosis | + + | CKD (chronic kidney disease), stage III ([facility]) - Primary | + + | Chronic kidney disease, Stage III (moderate) | + + | Nephrotic range proteinuria | + + | Proteinuria | + + | Type 1 diabetes mellitus with nephropathy ([facility]) | + + | Anemia of chronic renal failure, stage 3 (moderate) ([facility]) | + +"
--- OUTSIDE RECORDS SUMMARY | ~2019-01-21 | XMS | Encounter Summary ---
Demographics + + + | Address | [address] [facility] | | | [place] [address] | + + + | Home Phone | | + + + | Preferred Language | Unknown | + + + | Marital Status | Unknown | + + + | Confucianist Affiliation | Unknown | + + + | Race | Unknown | + + + | Ethnic Group | Unknown | + + + Author + + + | Author | [facility] | + + + | Organization | [facility] | + + + | Address | Unknown | + + + | Phone | Unavailable | + + + Support + + +---------+ + | Name | Relationship | Address | Phone | + + +---------+ + | Gia Ramos | ECON | Unknown | | + + +---------+ + Care Team Providers + +------+ + | Care Frame Welder Cargo Utility Trailers Name | Role | Phone | + [...] | [address] | [address] [place], [place] | Questionnaire and | | | | [place] [address] | [id number] | current med list) | | | | [phone] | | | +--------+ + + + [...] | | | | | [place] [address] | | | | | | [phone] | | | | | | | | +--------+---------+ + + + | 03/19/ | Office | Nephrology | Winston Whitman MD | | | 2018 | Visit | | [address] | | | | | | [address] [place] | | | | | | [phone] | | | | | | | | +--------+---------+ + + + as of this encounter Visit Diagnoses Not on filein this encounter"
--- OUTSIDE RECORDS SUMMARY | ~2019-01-21 | XMS | Encounter Summary ---
Demographics + + + | Address | [address] [facility] | | | [place] [address] | + + + | Home Phone | | + + + | Preferred Language | Unknown | + + + | Marital Status | Unknown | + + + | Mandaen Affiliation | Unknown | + + + | Race | Unknown | + + + | Ethnic Group | Unknown | + + + Author + + + | Author | [facility] | + + + | Organization | [facility] | + + + | Address | Unknown | + + + | Phone | Unavailable | + + + Support + + +---------+ + | Name | Relationship | Address | Phone | + + +---------+ + | Gia Ramos | ECON | Unknown | | + + +---------+ + Care Team Providers + +------+ + | Care Industrial Technology Teacher Name | Role | Phone | [...] | | | | | disease), | [place], [place] | [place] | | | | | stage III | [address] | [place], [place] | | | | | (HCC) | Phone: | [phone] | | | | | Nephrotic | [phone] | Phone: | | | | | range | Fax: | [phone] | | | | | proteinuria | [phone] | Fax: | | | | | Type 1 | | [phone] | | | | | diabetes | [...] [address] | | | | | [address] [facility] [address] | | | | | | [place] [address] | | | | | | [phone] | | | +--------+ + + + [...] | | | | | | [place] [address] | | | | | | [phone] | | | | | | | | +--------+---------+ + + + | 03/19/ | Office | Nephrology | Winston Whitman MD | | | 2019 | Visit | | [address] | | | | | | [address] [place], [place] | | | | | | [address] | | | | | | | [...] Expires: | | | | stage III ([facility]) | 01/16/2020 | | | | Nephrotic range | | | | | proteinuria Type 1 | | | | | diabetes mellitus | | | | | with nephropathy | | | | | (HCC) Anemia of | | | | | chronic renal | | | | | failure, stage 3 | | | | | (moderate) ([facility]) | | + +--------+ + + | [...] with nephropathy | | | | | ([facility]) Anemia of | | | | | chronic renal | | | | | failure, stage 3 | | | | | (moderate) ([facility]) | | + +--------+ + + | [...] with nephropathy | | | | | ([facility]) Anemia of | | | | | chronic renal | | | | | failure, stage 3 | | | | | (moderate) ([facility]) | | + +--------+ + + | [...] with nephropathy | | | | | ([facility]) Anemia of | | | | | chronic renal | | | | | failure, stage 3 | | | | | (moderate) ([facility]) | | + +--------+ + + | Ferritin | Routin | CKD (chronic | Expected: | | | e | kidney disease), | 03/17/2019, Expires: | | | | stage III ([facility]) | 01/16/2020 | | | | Nephrotic range | | | | | proteinuria Type 1 | | | | | diabetes mellitus | | | | | with nephropathy | | | | | ([facility]) Anemia of | | | | | chronic renal | | | | | failure, stage 3 | | | | | (moderate) ([facility]) | | + +--------+ + + | PTH intact no calcium | Routin | CKD (chronic | Expected: | | | e | kidney disease), | 03/17/2019, Expires: | | | | stage III ([facility]) | 01/16/2020 | | | | Nephrotic range | | | | | proteinuria Type 1 | | | | | diabetes mellitus | | | | | with nephropathy | | | | | ([facility]) Anemia of | | | | | chronic renal | | | | | failure, stage 3 | | | | | (moderate) ([facility]) | | + +--------+ + + | [...] with nephropathy | | | | | ([facility]) Anemia of | | | | | chronic renal | | | | | failure, stage 3 | | | | | (moderate) ([facility]) | | + +--------+ + + | [...] with nephropathy | | | | | ([facility]) Anemia of | | | | | chronic renal | | | | | failure, stage 3 | | | | | (moderate) ([facility]) | | + +--------+ + + + +--------+ + + | Name | Priori | Associated Diagnoses | Order Schedule | | | ty | | | + +--------+ + + | Ambulatory referral to | Routin | CKD (chronic | Ordered: 01/15/2019 | | Endocrinology | e | kidney disease), | | | | | stage III ([facility]) | | | | | Nephrotic range | | | | | proteinuria Type 1 | | | | | diabetes mellitus | | | | | with nephropathy | | | | | ([facility]) Anemia of | | | | | chronic renal | | | | | failure, stage 3 | | | | | (moderate) ([facility]) | | + +--------+ + + as of this encounter Visit Diagnoses + + | Diagnosis | + + | CKD (chronic kidney disease), stage III ([facility]) - Primary | + + | Chronic kidney disease, Stage III (moderate) | + + | Nephrotic range proteinuria | + + | Proteinuria | + + | Type 1 diabetes mellitus with nephropathy ([facility]) | + + | Anemia of chronic renal failure, stage 3 (moderate) ([facility]) | + +"
--- OUTSIDE RECORDS SUMMARY | ~2019-01-21 | XMS | Encounter Summary ---
Demographics + + + | Address | [address] [facility] | | | [place] [address] | + + + | Home Phone | | + + + | Preferred Language | Unknown | + + + | Marital Status | Unknown | + + + | Religion Affiliation | Unknown | + + + | Race | Unknown | + + + | Ethnic Group | Unknown | + + + Author + + + | Author | [facility] | + + + | Organization | [facility] [employer] [facility] | + + + | Address | Unknown | + + + | Phone | Unavailable | + + + Support + + +---------+ + | Name | Relationship | Address | Phone | + + +---------+ + | Gia Ramos | ECON | Unknown | | + + +---------+ + Care Team Providers + +------+ + | Care Planning Specialist Name | Role | Phone | + +------+ + | Erich Yates | PCP | | + +------+ + Encounter Details +--------+ + + + + | Date | Type | Department | Care Team | Description | +--------+ + + + + | 01/15/ | Initial | [facility] | Winston Whitman MD | CKD (chronic kidney | | 2019 | consult | [place] [address] | [address] | disease), stage III | | | | [address] | [address] [place], [place] | ([facility]); Nephrotic | | | | [place] [address] | [id number] | range proteinuria; | | | | [phone] | | 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 ([facility]); | | | | | | Diabetic | | | | | | gastroparesis (HCC); | | | | | | Stable | | | | | | proliferative | | | | | | diabetic retinopathy | | | | | | of both eyes | | | | | | associated with type | | | | | | 1 diabetes mellitus | | | | | | ([facility]); | | | | | | Hyperkalemia; | | | | | | Electrolyte | | | | | | imbalance risk; | | | | | | Metabolic acidosis; | | | | | | Anemia of chronic | | | | | | renal failure, stage | | | | | | 3 (moderate) ([facility]) | +--------+ + + + [...] + + + as of this encounter Last Filed Vital [...] PM PDT | + + + + in this encounter Instructions Patient Instructions - Winston Whitman MD - 01/15/2019 2:50 PM PDTDiscussions/Recommendatio ns: I discussed today with Mr. Marquez the meaning of his CKD and the interaction of that with his diabetes & hypertension. I stressed [...] will strictly abide by a low salt & low potassium diet and will avoid all kinds of NS AIDs for analgesia. Also: I will not change any of his vasoactive meds today. He will report back to me his home BP readings in 2 weeks. At that time, I will decide w hether any change to his vasoactive regimen is warranted. I asked him to elevate his legs for 1 hour once or twice a day. He knows that he still n eeds to be active and ambulatory carefully as possible. I sent him for a renal & bladder U/S soon. I strongly advised him to stop smoking MILE; I explained the benefits of doing that. He voiced good understanding. I sent him for evaluation by the Endocrinology team in . He will continue to F/U with your office regularly. He will have a RFP, CBC, Iron studies, Ferritin, intact PTH, urinalysis, Urine total pro xuwk-gt-rpgchhegus ratio before he comes back in 2 months. in this encounter Progress Notes Winston Whitman MD - 01/15/2019 2:50 PM PDTFormatting of this note may be different from th e original. There is no problem list on file for this patient. Dear Milan: Thank you for the opportunity to see Mr. Marquez in consult today. As you are familiar with his case, I will not state his past history in detail. Briefly, he is a 28 y.o. male patien t with past history as delineated above. he is here to be evaluated for hi severe proteinur ia. In 04/2018, his UTPCR was 2,275 mg/g; sCr & eGFR of 1.44 & 58. In 08/2018, 2.07 & 38. U TPCR On 01/11/19: 5,967 mg/g. The patient has history of hypertension since 2017, Diabetes Mellitus since the age of 11; his BG and BP control has been reportedly inadequate. he denies any history of prolonged ex posure to NSAIDs or recent exposure to known nephrotoxins. he denies any recurrent nephrolit hiasis or pyelonephritis. he tells me that he's had no history of urinary retention, gross h ematuria or dysuria. he has no incontinence symptoms. No symptoms of UTI; he has 1 or 2 nig htly nocturia. No history of passing kidney stones. he has no foamy urine either. his basel ine Creatinine is TBD. There is no family history of renal genetic diseases such as PKD. he says that he feels 'good ' today. he denies any blurred vision tinnitus, headache, feve r, chills, or cough. He has recurrent nausea, vomiting, abdominal pain, diarrhea for which he F/U's with your office; no melena, or hematochezia. No chest pain, palpitation, dizzines s, loss of consciousness, orthopnea, paroxysmal nocturnal dyspnea; he has chronic leg edema. The following portions of the patient's history were reviewed and updated as appropriate: a llergies, current medications, past medical history, past social history, past surgical hist ory, family history and problem list. I also reviewed with him the records received from you r office; these were very informative. As in History of Present Illness & in Assessment. All the twelve systems were reviewed and were otherwise negative. Current Outpatient Prescriptions Medication Sig Dispense Refill Furosemide (LASIX PO) Take 5 mg by mouth 2 (two) times daily. HYDROcodone-acetaminophen (NORCO) 7.5-325 MG per tablet Take 1 tablet by mouth every 6 (six) hours as needed for Pain. insulin glargine (LANTUS) 100 UNIT/ML injection Inject 40 Units into the skin nightly. insulin lispro, human, (HUMALOG) 100 UNIT/ML injection Inject 0.1 Units/kg into the ski n 3 (three) times daily before meals. lisinopril (ZESTRIL) 10 MG tablet Take 10 mg by mouth daily. metoprolol (LOPRESSOR) 50 MG tablet Take 50 mg by mouth 2 (two) times daily. ranitidine (RANITIDINE 150 MAX STRENGTH) 150 MG tablet Take 150 mg by mouth 2 (two) ranjit es daily. dicyclomine (BENTYL) 20 MG tablet Take 20 mg by mouth every 6 (six) hours. omeprazole (PRILOSEC) 20 MG capsule Take 20 mg by mouth 2 (two) times daily. ondansetron (ZOFRAN) 8 MG tablet Take 8 mg by mouth every 8 (eight) hours as needed for Nausea. potassium chloride (K-DUR) 10 MEQ tablet Take 10 mEq by mouth 2 (two) times daily with meals. tamsulosin (FLOMAX) 0.4 MG capsule Take 0.4 mg by mouth After dinner. No current facility-administered medications for this visit. Physical Exam: BP 113/73 (BP Location: Left upper arm, Patient Position: Sitting) | Pulse 86 | Ht 1.88 m (6' 2") | Wt 63 kg (138 lb 14.4 oz) | SpO2 100% | BMI 17.83 kg/m General appearance: Pleasant, not in acute distress. Neck: Supple without tracheal deviation or jugular venous distension. Head and ENT: Head is atraumatic. The oropharynx is without erythema or thrush. Eyes: Anicteric. The extraocular muscle movements are normal. Lungs: Clear to auscultation bilaterally. There are no wheezes. Heart: Regular rate and rhythm without any rub, gallop. No murmur. Abdominal exam: Soft and nontender with normal bowel sounds. Musculoskeletal: No costovertebral angle tenderness bilaterally. Extremities: Warm to touch with 2+ leg edema. There is no cyanosis. Skin: There are no rashes, petechiae, or ecchymosis. Neurological: Awake, alert, and oriented to time, place, and person. Normal gross motor po wer. There is no asterixis. Psychiatric: The patient s behavior is normal. Judgment and thought content are normal. Lab Results Component Value Date BUN 21 01/11/2019 CREATININE 1.50 (A) 01/11/2019 EGFR 55 01/11/2019 NA 138 01/11/2019 K 5.5 (A) 01/11/2019 CL 115 (A) 01/11/2019 CO2 18 (A) 01/11/2019 CA 8.1 (A) 01/11/2019 ALB 3.2 (A) 09/13/2018 HGB 9.7 (A) 01/11/2019 URICACID 7.3 01/11/2019 WBC 7.3 01/11/2019 HCT 29.6 (A) 01/11/2019 LABPROT 5,966.8 (A) 01/11/2019 Assessment: Mr. Marquez is a 28 y.o. male patient with stage III CKD on a background of longstanding & un controlled type I diabetes. The most likely pathology here is that of diabetic nephropathy. RENAL FUNCTION: Relatively stable 04/2018 BLOOD PRESSURE: Reports it controlled lately BLOOD SUGAR: Reports it uncontrolled ELECTROLYTES: Mild hyperkalemia now. Mild metabolic acidosis. ANEMIA: Mild; associated with his chronic diseases, the longstanding diabetes & the CKD III VITAMIN D: To be checked thru your office PARATHYROID HORMONE: To be checked URIC ACID: okay PROTEINURIA: Severe: nephrotic range URINALYSIS: No UTI sxs. No gross hematuria. To be repeated VOLUME STATUS: Euvolumic. Discussions/Recommendations: I discussed today with Mr. Marquez the meaning of his CKD and the interaction of that with his diabetes & hypertension. I stressed [...] will strictly abide by a low salt & low potassium diet and will avoid all kinds of NS AIDs for analgesia. Also: I will not change any of his vasoactive meds today. (I am unable to add/uptitrate his RAAS blockade at this time because of hyperkalemia) He will report back to me his home BP readings in 2 weeks. At that time, I will decide w hether any change to his vasoactive regimen is warranted. I asked him to elevate his legs for 1 hour once or twice a day. He knows that he still n eeds to be active and ambulatory carefully as possible. I sent him for a renal & bladder U/S soon. I strongly advised him to stop smoking MILE; I explained the benefits of doing that. He voiced good understanding. I sent him for evaluation by the Endocrinology team in . He will F/U with your office regularly. He will have a RFP, CBC, Iron studies, Ferritin, intact PTH, urinalysis, Urine total pro tzrf-yp-ajxnpivuur ratio before he comes back in 2 months. More than 30 minutes of this 60-minute visit was spent in education and counseling. Thank you Milan for the opportunity to see this patient in consult today. Please do not h esitate to call me at any time with questions or concerns. Truly yours, Winston Whitman MD FACP VALENTINA PULLIAM in this encounter Plan of Treatment +--------+---------+ + + + | Date | Type | Specialty | Care Team | Description | +--------+---------+ + + + | 02/23/ | Office | Endocrinology | Ted Carlos, | | | 2018 | Visit | | [address] | | | | | | [address] | | | | | | [place] [address] | | | | | | [phone] | | | | | | | | +--------+---------+ + + + | 03/19/ | Office | Nephrology | Winston Whitman MD | | | 2018 | Visit | | [address] | | | | | | [address] [place], [place] | | | | | | [address] | | | | | | | | +--------+---------+ + + + as of this encounter Visit Diagnoses + + | Diagnosis | + + | CKD (chronic kidney disease), stage III (HCC) | + + | Chronic kidney disease, Stage III (moderate) | + + | Nephrotic range proteinuria | + + | Proteinuria | + + | Type 1 diabetes mellitus with nephropathy (HCC) | + + | Diabetic gastroparesis (HCC) | + + | Type II or unspecified type diabetes mellitus with neurological manifestations, not | | stated as uncontrolled | + + | 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
--- OUTSIDE RECORDS SUMMARY | ~2019-01-21 | XMS | Encounter Summary ---
Demographics + + + | Address | [address] [facility] | | | [place] [address] | + + + | Home Phone | | + + + | Preferred Language | Unknown | + + + | Marital Status | Unknown | + + + | Mormon Affiliation | Unknown | + + + | Race | Unknown | + + + | Ethnic Group | Unknown | + + + Author + + + | Author | [facility] | + + + | Organization | [facility] [employer] [facility] | + + + | Address | Unknown | + + + | Phone | Unavailable | + + + Support + + +---------+ + | Name | Relationship | Address | Phone | + + +---------+ + | Gia Ramos | ECON | Unknown | | + + +---------+ + Care Team Providers + +------+ + | Care Clay Press Operator Name | Role | Phone [...] | | 2019 | on Only | [place] [address] | [address] | Urine culture) | | | | [address] | | | | | | [place] [address] | | | | | | [phone] | | | +--------+ + + + [...] [address] | | | | | | [facility] [place] [address] | | | | | | [phone] | | | | | | | | +--------+---------+ + + + | 03/19/ | Office | Nephrology | Winston Whitman MD | | | 2018 | Visit | | [address] | | | | | | [address] [place], [place] | | | | | | [address] | | | | | | | [...]
--- OUTSIDE RECORDS SUMMARY | ~2019-01-21 | XMS | Encounter Summary ---
Demographics + + + | Address | [address] [facility] | | | [place] [address] | + + + | Home Phone | | + + + | Preferred Language | Unknown | + + + | Marital Status | Unknown | + + + | Restorationist Affiliation | Unknown | + + + | Race | Unknown | + + + | Ethnic Group | Unknown | + + + Author + + + | Author | [facility] | + + + | Organization | [facility] [employer] [facility] | + + + | Address | Unknown | + + + | Phone | Unavailable | + + + Support + + +---------+ + | Name | Relationship | Address | Phone | + + +---------+ + | Gia Ramos | ECON | Unknown | | + + +---------+ + Care Team Providers + +------+ + | Care Data Processing Systems Project Planner Name | Role | Phone | + [...] | | 2019 | on Only | [place] [address] | [address] | - 01/11/19 - brady) | | | | [address] | | | | | | [place] [address] | | | | | | [phone] | | | +--------+ + + + [...] | | | | | [place] [address] | | | | | | [phone] | | | | | | | | +--------+---------+ + + + | 03/19/ | Office | Nephrology | Winston Whitman MD | | | 2018 | Visit | | [address] | | | | | | [address] [place] | | | | | | [address] | | | | | | | | +--------+---------+ + + + as of this encounter Visit Diagnoses Not on filein this encounter"
--- OUTSIDE RECORDS SUMMARY | ~2019-01-21 | XMS | Encounter Summary ---
Demographics + + + | Address | [address] [facility] | | | [place] [address] | + + + | Home Phone | | + + + | Preferred Language | Unknown | + + + | Marital Status | Unknown | + + + | Zoroastrian Affiliation | Unknown | + + + | Race | Unknown | + + + | Ethnic Group | Unknown | + + + Author + + + | Author | [facility] | + + + | Organization | [facility] [employer] [facility] | + + + | Address | Unknown | + + + | Phone | Unavailable | + + + Support + + +---------+ + | Name | Relationship | Address | Phone | + + +---------+ + | Gia Ramos | ECON | Unknown | | + + +---------+ + Care Team Providers + +------+ + | Care Set Up Operator Name | Role | [...] | [address] | [address] [place], [place] | ([facility]); Nephrotic | | | | [place] [address] | [address] | range proteinuria; | | | | [phone] | | Type 1 diabetes | | [...] | | ([facility]); | | | | | | Hyperkalemia; | | | | | | Electrolyte | | | | | | imbalance risk; | | | | | | Metabolic acidosis; | | | | | | Anemia of chronic | | | | | | renal failure, stage | | | | | | 3 (moderate) ([facility]) [...] Ferritin, intact PTH, urinalysis, Urine total pro fwte-al-hruwqzaxqq ratio before he comes back in 2 [...] Ferritin, intact PTH, urinalysis, Urine total pro etes-pd-oylpvojdnu ratio before he comes back in 2 [...] [address] | | | | | | [place] [address] | | | | | | [phone] | | | | | | | | +--------+---------+ + + + | 03/19/ | Office | Nephrology | Winston Whitman MD | | | 2018 | Visit | | [address] | | | | | | [address] [place], [place] | | | | | | [address] | | | | | | | [...]
[~2019-01-21 16:24] MED LIST changes: +AMOX TR-K CLV1 EACH PO; +CEFUROXIME500 MG PO; +CLEOCIN HCL300 MG PO; +HYDROCODON-ACE1 EAC8 PO; +LANTUS100 UNITS/ SUB-Q; +LASIX40 MG PO; +ZESTRIL10 MG PO
--- OUTSIDE RECORDS SUMMARY | 2019-01-21 16:28 | XMS ---
PreManage Notification: NGOC COREA Security Cat And Dog Bather Events No recent Security Events currently on file CRITERIA MET - [facility] - Has Care Guidelines - PDMP CARE PROVIDERS CAMERON MENDEZ Physician Home Hospice Rn 05/01/2018-Current PHONE: [phone] [facility] Primary Care [facility] PHONE: Unknown ROSA JASSO [facility] Current PHONE: Unknown Marlena has no Care Guidelines for this patient. Care History Medical/Surgical 05/01/2018 [facility] - [facility] referred patient to [facility] case management team. - Further education on medications/chronic pain education is needed. - [facility] case management can be reached at [phone]. E.D. VISIT COUNT (12 MO.) [address] [facility] [address] [facility] TOTAL 7 NOTE: Visits indicate total known visits. ED/UCC VISIT TRACKING (12 MO.) 01/21/2019 16:25 [facility] TYPE: Emergency COMPLAINT: - STOMACH PAIN AND VOMITING 10/29/2018 15:33 [facility] TYPE: Emergency COMPLAINT: - WOUND CHECK/PRESSURE SORE 09/19/2018 13:00 [facility] TYPE: Emergency COMPLAINT: - FLANK PAIN/VOMITING DIAGNOSES: - Unspecified abdominal pain - Type 1 diabetes mellitus without complications - Nicotine dependence, unspecified, uncomplicated - FCI (current) use of insulin - Essential (primary) hypertension - Allergy status to narcotic agent status - Other meterman (current) drug therapy - Calculus of kidney with calculus of ureter 09/13/2018 05:35 [facility] TYPE: Emergency COMPLAINT: - R FLANK PAIN DIAGNOSES: - 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 - Essential (primary) hypertension - Allergy status to narcotic agent status - Other meterman (current) drug therapy - Type 1 diabetes [...] Emergency COMPLAINT: - ABD PAIN DIAGNOSES: - FCI (current) use of insulin - Allergy status to narcotic agent status - Acute gastritis without bleeding - Other fci (current) drug therapy - Nicotine dependence, unspecified, uncomplicated - Essential (primary) hypertension - Type 2 diabetes mellitus without complications - Epigastric pain 04/14/2018 18:26 [facility] TYPE: Emergency COMPLAINT: - NAUSEA DIAGNOSES: - Nausea with vomiting, unspecified - Essential (primary) hypertension - Allergy status to narcotic agent status - 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 - Type 2 diabetes mellitus without complications - Other meterman (current) drug therapy - Nicotine dependence, unspecified, uncomplicated INPATIENT VISIT TRACKING (12 MO.) 10/29/2018 19:42 [facility] TYPE: Medical Surgical COMPLAINT: - NECROTIZING FASCITIS DIAGNOSES: - Fever, unspecified - Sepsis, unspecified organism - Acidosis - Type 1 diabetes mellitus with diabetic chronic kidney disease - Phantom limb syndrome with pain - Chronic kidney disease, stage 3 (moderate) - Acute kidney failure, unspecified - Rheumatoid arthritis, unspecified - Other meterman (current) drug therapy - Unspecified abdominal pain - Allergy status to narcotic agent status - Acidosis - Hypocalcemia - Unspecified abdominal pain - Other chronic pain - Rheumatoid arthritis, unspecified - Acute kidney failure, unspecified - Type 1 diabetes mellitus with hyperglycemia - Nicotine dependence, unspecified, uncomplicated - Allergy status to narcotic agent status - Necrotizing fasciitis - Other chronic pain - Type 1 diabetes mellitus with diabetic chronic kidney disease - 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e 4 chronic kidney disease, or unspecified chronic kidney disease - Nicotine dependence, unspecified, uncomplicated - Non-pressure chronic ulcer of other part of right foot with unspecified severity - 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 - Type 1 diabetes mellitus with hyperglycemia - Hypocalcemia - Other meterman (current) drug therapy - Chronic kidney disease, stage 3 (moderate) - 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 - 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 - Non-pressure chronic ulcer of other part of right foot with unspecified severity - Phantom limb syndrome with pain - FCI (current) use of insulin - Anemia, unspecified - Type 1 diabetes mellitus with foot ulcer - Sepsis, unspecified organism - 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e 4 chronic kidney disease, or unspecified chronic kidney disease - Type 1 diabetes mellitus with foot ulcer - Necrotizing fasciitis - Anemia, unspecified 09/19/2018 19:02 [facility] TYPE: Surgical Services DIAGNOSES: - Calculus of ureter - Acute kidney failure, unspecified - Unspecified abdominal pain - Hyperkalemia - Unspecified hydronephrosis [email or web address]
[2019-01-21] MEDS ORDERED: REGLAN10 MG PO (18:55)
[2019-01-21] MEDS ORDERED: ZOFRAN4 MG SL (18:55)
[2019-01-21] MEDS ORDERED: ZOFRAN8 MG PO (18:55)
== END 2019-01-21 19:10 | disposition home or self-care (01) ==
LOC: ED 16:24
DX: E10.43 Type 1 diabetes mellitus with diabetic autonomic (poly)neuropathy (principal); K31.84 Gastroparesis; I10 Essential (primary) hypertension; M06.9 Rheumatoid arthritis, unspecified; Z87.442 Personal history of urinary calculi; F17.200 Nicotine dependence, unspecified, uncomplicated; Z89.511 Acquired absence of right leg below knee; Z88.5 Allergy status to narcotic agent; Z79.899 Other long term (current) drug therapy
CPT/HCPCS: 36600; 71045; 80053; 81001; 82010; 82803; 83605; 83690; 85025; 87088; 96361; 96374; 96375; 99284-25; J1170; J1200; J2405; J2765; J7030

== ENCOUNTER 2019-06-09 11:30 | Emergency (ER) | payer OTHER ==
[~2019-06-09] VITALS: Ht 188 cm; Wt 59.1 kg
[~2019-06-09 11:30] MED LIST changes: +FUROSEMIDE40 MG PO; +REGLAN10 MG PO; +ZOFRAN4 MG SL; +ZOFRAN8 MG PO
--- OUTSIDE RECORDS SUMMARY | 2019-06-09 11:32 | XMS ---
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 04/01/2019 14:50 - Other Details: PATIENT LEFT AMA. IRIS CREATED. CRITERIA MET - [facility] - Has Care Guidelines - [facility] CAMERON MENDEZ 05/01/2018-Current PHONE: [phone] [facility] Primary Care [facility] PHONE: Unknown ROSA JASSO Primary Care Current PHONE: Unknown Marlena has no Care Guidelines for this patient. Care History Medical/Surgical 05/01/2018 [facility] referred patient to [facility] case management team. - Further education on medications/chronic pain education is needed. - [facility] case management can be reached at [phone]. E.DNnada VISIT COUNT (12 MO.) 7 [facility] TOTAL 7 NOTE: Visits indicate total known visits. ED/UCC VISIT TRACKING (12 MO.) 06/09/2019 11:31 [facility] [place] Emergency COMPLAINT: - DEHYDRATION, ABD PAIN 04/01/2019 14:50 [facility] [place] TYPE: Emergency COMPLAINT: - VOMITING,POSS DEHYDRATION DIAGNOSES: - Essential (primary) hypertension - Acute kidney failure, unspecified - Allergy status to narcotic agent status - Nicotine dependence, unspecified, uncomplicated - Vomiting, unspecified - Other terminal worker (current) drug therapy - Personal history of urinary calculi - Type 1 diabetes mellitus without complications 01/21/2019 16:25 [facility] [place] TYPE: Emergency COMPLAINT: - STOMACH PAIN AND VOMITING DIAGNOSES: - Nausea with vomiting, unspecified - 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 - Gastroparesis - Essential (primary) hypertension - Rheumatoid arthritis, unspecified - Allergy status to narcotic agent status - Personal history of urinary calculi - Nicotine dependence, unspecified, uncomplicated - Other terminal worker (current) drug therapy - Acquired absence of right leg below knee 10/29/2018 15:33 [facility] [place] TYPE: Emergency COMPLAINT: - WOUND CHECK/PRESSURE SORE 09/19/2018 13:00 [facility] [place] TYPE: Emergency COMPLAINT: - FLANK PAIN/VOMITING DIAGNOSES: - Unspecified abdominal pain - Type 1 diabetes mellitus without complications - Nicotine dependence, unspecified, uncomplicated - senior living (current) use of insulin - Essential (primary) hypertension - Allergy status to narcotic agent status - Other assisted (current) drug therapy - Calculus of kidney with calculus of ureter 09/13/2018 05:35 [facility] [place] TYPE: Emergency COMPLAINT: - R FLANK PAIN DIAGNOSES: - terminal worker (current) use of insulin - Essential (primary) hypertension - Allergy status to narcotic agent status - Other assisted (current) drug therapy - Type 1 diabetes mellitus without complications - Hydronephrosis with renal and ureteral calculous obstruction - Chronic pain syndrome - Unspecified abdominal pain - Nicotine dependence, unspecified, uncomplicated 06/28/2018 09:10 [facility] [place] TYPE: Emergency COMPLAINT: - POSS INFECTION/WOUND CHECK NON INJURY DIAGNOSES: - Disorder of the skin and subcutaneous tissue, unspecified INPATIENT VISIT TRACKING (12 MO.) 10/29/2018 19:42 [facility] [place] TYPE: Medical Surgical COMPLAINT: - NECROTIZING FASCITIS DIAGNOSES: - Fever, unspecified - Sepsis, unspecified organism - Acidosis - Type 1 diabetes mellitus with diabetic chronic kidney disease - Phantom limb syndrome with pain - Chronic kidney disease, stage 3 (moderate) - Acute kidney failure, unspecified - Rheumatoid arthritis, unspecified - Other assisted (current) drug therapy - Unspecified abdominal pain [...] of right foot with unspecified severity - terminal worker (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 - Type 1 diabetes mellitus with hyperglycemia - Hypocalcemia - Other terminal worker (current) drug therapy - Chronic kidney disease, stage 3 (moderate) - senior living (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 - senior living (current) use of insulin - Non-pressure chronic ulcer of other part of right foot with unspecified severity - Phantom limb syndrome with pain - senior living (current) use of insulin - Anemia, unspecified - Type 1 diabetes mellitus with foot ulcer - Sepsis, unspecified organism - 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e 4 chronic kidney disease, or unspecified chronic kidney disease - Type 1 diabetes mellitus with foot ulcer - Necrotizing fasciitis - Anemia, unspecified 09/19/2018 19:02 [place] TYPE: [facility] Services DIAGNOSES: - Calculus of ureter - Acute kidney failure, unspecified - Unspecified abdominal pain - Hyperkalemia - Unspecified hydronephrosis [email or web address]
--- NOTE | 2019-06-10 11:26 | EKG ---
[facility] [address] [place], [place] [address] Signed Sinus tachycardia Otherwise normal ECG When compared with ECG of 29-OCT-2018 19:35, No significant change was found Confirmed by PINO LOPEZ MD ([id number]) on 06/10/2019 11:26:04 AM Electronically Signed By: PINO LOPEZ MD 06/10/19 1126 PATIENT NAME: NGOC COREA II Electrocardiogram DATE OF : 88 PHYSICIAN: PINO LOPEZ MD REPORT #: [id number] REPORT IS CONFIDENTIAL AND NOT TO BE RELEASED WITHOUT AUTHORIZATION
== END 2019-06-09 19:13 | disposition short-term general hospital (02) ==
LOC: ED 11:30
DX: R07.9 Chest pain, unspecified (principal); R77.8 Other specified abnormalities of plasma proteins; E10.65 Type 1 diabetes mellitus with hyperglycemia; I10 Essential (primary) hypertension; Z87.442 Personal history of urinary calculi; F17.200 Nicotine dependence, unspecified, uncomplicated; Z88.5 Allergy status to narcotic agent; Z79.4 Long term (current) use of insulin; Z79.899 Other long term (current) drug therapy
CPT/HCPCS: 80053; 81001; 82010; 82800; 82803; 83690; 84484; 85025; 93005; 93010; 96361; 96374; 96375; 96376; 99285-25; C9113; J1815; J2270; J2405; J2765; J7030; J7120

== ENCOUNTER 2019-06-12 11:34 | Emergency (ER) | payer OTHER ==
[~2019-06-12] VITALS: Ht 188 cm; Wt 59.1 kg
--- OUTSIDE RECORDS SUMMARY | 2019-06-12 11:38 | XMS ---
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 IRIS CREATED. CRITERIA MET - - Has Care Guidelines - PDMP - - 2 Visits in 30 Days CARE PROVIDERS CAMERON MENDEZ Physician 05/01/2018-Current PHONE: [phone] MUSLIM JEMISON Primary Care [facility] PHONE: Unknown ROSA JASSO Primary Care Current PHONE: Unknown Marlena has no Care Guidelines for this patient. Care History Medical/Surgical 05/01/2018 [facility] - [facility] referred patient to [facility] case management team. - Further education on medications/chronic pain education is needed. - [facility] case management can be reached at [phone]. E.D. VISIT COUNT (12 MO.) 8 [facility] TOTAL 8 NOTE: Visits indicate total known visits. ED/UCC VISIT TRACKING (12 MO.) [facility] COMPLAINT: - BODY ACHES,CHILLS 06/09/2019 11:31 [facility] [place] TYPE: Emergency COMPLAINT: - DEHYDRATION, ABD PAIN 04/01/2019 14:50 [facility] [place] TYPE: Emergency COMPLAINT: - VOMITING,POSS DEHYDRATION DIAGNOSES: - Essential (primary) hypertension - Acute kidney failure, unspecified - Allergy status to narcotic agent status - Nicotine dependence, unspecified, uncomplicated - Vomiting, unspecified - Other correction (current) drug therapy - Personal history of [...] - Nicotine dependence, unspecified, uncomplicated - Other correction (current) drug therapy - Acquired absence of right leg below knee 10/29/2018 15:33 [facility] [place] TYPE: Emergency COMPLAINT: - WOUND CHECK/PRESSURE SORE 09/19/2018 13:00 [facility] [place] TYPE: Emergency COMPLAINT: - FLANK PAIN/VOMITING DIAGNOSES: - Unspecified abdominal pain - Type 1 diabetes mellitus without complications - Nicotine dependence, unspecified, uncomplicated - custodial (current) use of insulin - Essential (primary) hypertension - Allergy status to narcotic agent status - Other correction (current) drug therapy - Calculus of kidney with calculus of ureter 09/13/2018 05:35 [facility] [place] TYPE: Emergency COMPLAINT: - R FLANK PAIN DIAGNOSES: - vermin exterminator (current) use of insulin - Essential (primary) hypertension - Allergy status to narcotic agent status - Other manager long term care (current) drug therapy - Type 1 diabetes [...] unspecified - Rheumatoid arthritis, unspecified - Other manager long term care (current) drug therapy - Unspecified abdominal pain [...] of right foot with unspecified severity - vermin exterminator (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 - Type 1 diabetes mellitus with hyperglycemia - Hypocalcemia - Other manager long term care (current) drug therapy - Chronic kidney disease, stage 3 (moderate) - vermin exterminator (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 - vermin exterminator (current) use of insulin - Non-pressure chronic ulcer of other part of right foot with unspecified severity - Phantom limb syndrome with pain - custodial (current) use of insulin - Anemia, unspecified - Type 1 diabetes mellitus with foot ulcer - Sepsis, unspecified organism - 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e 4 chronic kidney disease, or unspecified chronic kidney disease - Type 1 diabetes mellitus with foot ulcer - Necrotizing fasciitis - Anemia, unspecified [facility] DIAGNOSES: - Calculus of ureter - Acute kidney failure, unspecified - Unspecified abdominal pain - Hyperkalemia - Unspecified hydronephrosis [email or web address]
== END 2019-06-12 18:34 | disposition home or self-care (01) ==
LOC: ED 11:34
DX: R10.30 Lower abdominal pain, unspecified (principal); E10.9 Type 1 diabetes mellitus without complications; I10 Essential (primary) hypertension; F17.200 Nicotine dependence, unspecified, uncomplicated; Z87.442 Personal history of urinary calculi; Z88.5 Allergy status to narcotic agent; Z79.4 Long term (current) use of insulin; Z79.899 Other long term (current) drug therapy
CPT/HCPCS: 80053; 83690; 85025; 96361; 96374; 96375; 96376; 99284-25; C9113; J2270; J2405; J2765; J7030

== ENCOUNTER 2019-06-22 11:46 | Emergency (ER) | payer OTHER ==
[~2019-06-22] VITALS: Ht 188 cm; Wt 59.0 kg
--- OUTSIDE RECORDS SUMMARY | 2019-06-22 11:48 | XMS ---
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 IRIS CREATED. CRITERIA MET - [facility] - Has Care Guidelines - PDMP - [facility] - 2 Visits in 30 Days CARE PROVIDERS CAMERON MENDEZ 05/01/2018-Current PHONE: [phone] [facility] Primary Care [facility] PHONE: Unknown ROSA JASSO Primary Care Current PHONE: Unknown Guidelines Source: E[place] BrockF\ [place] IPA Guidelines Date: 05/04/2019 Care Coordination: If pt. presents to Ed please call case management at [facility] [phone] Leandra DORMAN or Jenni Westbrook RN Case Manager.\T\nbsp; Care History Medical/Surgical 05/01/2018 [facility] - CHW referred patient to [facility] case management team. - Further education on medications/chronic pain education is needed. - [facility] case management can be reached at [phone]. E.D. VISIT COUNT (12 MO.) 9 [facility] TOTAL 9 NOTE: Visits indicate total known visits. ED/C VISIT TRACKING (12 MO.) 06/22/2019 11:47 [facility] [place] TYPE: Emergency COMPLAINT: - ABD PAIN 06/12/2019 11:35 [facility] [place] TYPE: Emergency COMPLAINT: - BODY ACHES,CHILLS DIAGNOSES: - intermediate frame tender (current) use of insulin - Allergy status to narcotic agent status - Type 1 diabetes mellitus without complications - Other jail (current) drug therapy - Essential (primary) hypertension - Nicotine dependence, unspecified, uncomplicated - Upper abdominal pain, unspecified - Personal history of urinary calculi - Lower abdominal pain, unspecified 06/09/2019 11:31 [facility] [place] TYPE: Emergency COMPLAINT: - DEHYDRATION, ABD PAIN DIAGNOSES: - intermediate frame tender (current) use of insulin - Chest pain, unspecified - Essential (primary) hypertension - Unspecified abdominal pain - Other jail (current) drug therapy - Type 1 diabetes mellitus with hyperglycemia - Allergy status to narcotic agent status - Nicotine dependence, unspecified, uncomplicated - Other specified abnormalities of plasma proteins - Personal history of urinary calculi 04/01/2019 14:50 [facility] [place] TYPE: Emergency COMPLAINT: - VOMITING,POSS DEHYDRATION DIAGNOSES: - Essential (primary) hypertension - Acute kidney failure, unspecified - Allergy status to narcotic agent status - Nicotine dependence, unspecified, uncomplicated - Vomiting, unspecified - 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 - Personal history of [...] - Nicotine dependence, unspecified, uncomplicated - Other jail (current) drug therapy - Acquired absence of right leg below knee 10/29/2018 15:33 [facility] [place] TYPE: Emergency COMPLAINT: - WOUND CHECK/PRESSURE SORE 09/19/2018 13:00 [facility] [place] TYPE: Emergency COMPLAINT: - FLANK PAIN/VOMITING DIAGNOSES: - Unspecified abdominal pain - Type 1 diabetes mellitus without complications - Nicotine dependence, unspecified, uncomplicated - correction (current) use of insulin - Essential (primary) hypertension - Allergy status to narcotic agent status - Other jail (current) drug therapy - Calculus of kidney with calculus of ureter 09/13/2018 05:35 [facility] [place] TYPE: Emergency COMPLAINT: - R FLANK PAIN DIAGNOSES: - correction (current) use of insulin - Essential (primary) hypertension - Allergy status to narcotic agent status - Other jail (current) drug therapy - Type 1 diabetes [...] unspecified - Rheumatoid arthritis, unspecified - Other jail (current) drug therapy - Unspecified abdominal pain [...] right foot with unspecified severity - intermediate frame tender (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 - Type 1 diabetes mellitus with hyperglycemia - Hypocalcemia - 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 - Chronic kidney disease, stage 3 (moderate) - intermediate frame tender (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 - correction (current) use of insulin - Non-pressure chronic ulcer of other part of right foot with unspecified severity - Phantom limb syndrome with pain - correction (current) use of insulin - Anemia, unspecified - Type 1 diabetes mellitus with foot ulcer - Sepsis, unspecified organism - 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e 4 chronic kidney disease, or unspecified chronic kidney disease - Type 1 diabetes mellitus with foot ulcer - Necrotizing fasciitis - Anemia, unspecified [facility] DIAGNOSES: - Calculus of ureter - Acute kidney failure, unspecified - Unspecified abdominal pain - Hyperkalemia - Unspecified hydronephrosis [email or web address]
[2019-06-22] MEDS ORDERED: METOPROLOL TART50 MG PO (16:55)
== END 2019-06-22 17:16 | disposition home or self-care (01) ==
LOC: ED 11:46
DX: E10.43 Type 1 diabetes mellitus with diabetic autonomic (poly)neuropathy (principal); K31.84 Gastroparesis; I10 Essential (primary) hypertension; Z87.442 Personal history of urinary calculi; F17.200 Nicotine dependence, unspecified, uncomplicated; Z88.5 Allergy status to narcotic agent; Z79.899 Other long term (current) drug therapy
CPT/HCPCS: 80053; 81001; 83690; 85025; 96361; 96374; 96375; 96376; 99284-25; J2270; J2405; J2765; J7030

== ENCOUNTER 2019-08-28 19:20 | Observation (INO) | payer OTHER ==
[~2019-08-28] VITALS: Ht 188 cm; Wt 66.2 kg
--- OUTSIDE RECORDS SUMMARY | ~2019-08-28 | XMS | Encounter Summary ---
Demographics + + + | Address | [address] | | | [place] [address] | + + + | Home Phone | | + + + | Preferred Language | Unknown | + + + | Marital Status | Single | + + + | Tenriism Affiliation | CAT | + + + | Race | White | + + + | Ethnic Group | Not or | + + + Author + + + | Author | [facility] | + + + | Organization | [facility] | + + + | Address | Unknown | + + + | Phone | Unavailable | + + + Support + + + + + | Name | Relationship | Address | Phone | + + + + + | Samantha Ramos | ECON | [address] | | | | | [place] | | | | | [address] | | + + + + + Care Team Providers + +------+ + | Care China Painter Name | Role | Phone | + +------+ + PCP | Unavailable | + +------+ + Encounter Details +--------+ + + + + | Date | Type | Department | Care Team | Description | +--------+ + + + + | 09/30/ | Office | [facility] | Clinic, Pediatric | Progress Note | | 2005 | Visit-Trans | [facility] | Endocrinology | | | | cribed | | | | +--------+ + + + + Social History + +-------+ +--------+------+ | Tobacco Use | Types | Packs/Day | Years | Date | | | | | Used | | + +-------+ +--------+------+ | Never Assessed | | | | | + +-------+ +--------+------+ + + + | Sex Assigned at | Date Recorded | | | | + + + | Not on file | | + + + + + + + | Job Start Date | Occupation | Industry | + + + + | Not on file | Not on file | Not on file | + + + + + + + + | Travel History | Travel Start | Travel End | + + + + + + | No recent travel history available. | + + documented as of this encounter Progress Notes Interface, Grain Operations Manager In - 04/25/2005 12:43 AM PDT [id number] [facility]D [facility] Date: 09/30/2004 Clinic: Pediatric Endocrinology Subjective: The patient was seen with his mother and stepfather today. He has been admitted for DKA back in 2002 and has had 3 hospitalizations because of not taking his insulin. He consumes 3 meals a day with an afternoon snack and a bedtime snack. Breakfasts usually consist of cereal and milk. Lunch tends to be the same thing at school which consist of corn dog, fries, fruits, and chocolate milk. Dinner varies in amount depending on food served. He will be starting PE in about 3 weeks every day which lasts for about 45 minutes. His football practice is usually in the fall. Objective: Please refer to clinic notes for his weight and height. Assessment: Diet history indicates that Alin has not been consistently counting his carbohydrate intake. He was on 15 g of carbohydrates to 1 unit of insulin 1 month ago, and he is currently on carbohydrate-insulin ratio of 10:1. As a result, he has not been taking enough insulin for his meals. For example, his carbohydrate intake for lunch adds up to about 7 to 8 carbohydrates choices whereas he usually takes about 6 to 8 units of insulin. His carbohydrate intake at dinner varies, and he usually takes about 18 units of insulin. Alin states that he tends to take less insulin because of worries of taking too much insulin and having hypoglycemia although Alin's blood sugar is usually in the 400s range. Alin also tends to forget to take his insulin at breakfast although his mother states that he tends to forget when he is at school. Plan 1. Reviewed carbohydrate replacement for increased activity level although no carbohydrate replacement is recommended at this point with PE at school. 2. Reviewed carbohydrate intake on sick days. 3. Reviewed carbohydrate counting and accurate measuring. 4. Also reminded the patient to take insulin every time he eats. DENISSE Carr, CNSD, LD AT / [id number] / [id number] / [id number] / documented i n this encounter Plan of Treatment +--------+ + + + + | Date | Type | Specialty | Care Team | Description | +--------+ + + + + | 09/03/ | Hospital | | Greg Mathis | | | 2019 | Encounter | | [facility] [address] | | | | | | [place], | | | | | | [place] [address] | | | | | | [phone] | | | | | | | | +--------+ + + + + | 09/03/ | Appointment | Procedural Care Unit | | | | 2018 | | | | | +--------+ + + + + | 09/03/ | Appointment | Gastroenterology | Greg Mathis | | | 2018 | | | MD [facility] [address] | | | | | | [place], | | | | | | [place] [address] | | | | | | [phone] | | | | | | | | +--------+ + + + + | 09/13/ | Office | Hematology & | Rodney, | | | 2018 | Visit | Oncology | MD Nabeel [address] | | | | | | [place], | | | | | | [place] [address] | | | | | | [phone] | | | | | | | | +--------+ + + + + | 01/24/ | Office | Surgery | Neri Steven MD | | | 2019 | Visit | | [address] | | | | | | [place] | | | | | | [place] [address] | | | | | | [phone] | | | | | | | | +--------+ + + + + documented as of this encounter Visit Diagnoses Not on filedocumented in this encounter"
--- OUTSIDE RECORDS SUMMARY | ~2019-08-28 | XMS | Encounter Summary ---
Demographics + + + | Address | [address] | | | [place] [address] | + + + | Home Phone | | + + + | Preferred Language | Unknown | + + + | Marital Status | Single | + + + | Yarsanism Affiliation | CAT | + + + | Race | White | + + + | Ethnic Group | Not or | + + + Author + + + | Organization | Unknown | + + + | Address | Unknown | + + + | Phone | Unavailable | + + + Support + + + + + | Name | Relationship | Address | Phone | + + + + + | Samantha Ramos | ECON | [address] | | | | | [place], [place] | | | | | [address] | | + + + + + Care Team Providers + +------+ + | Care Heater Engineer Helper Name | Role | Phone | + +------+ + PCP | Unavailable | + +------+ + Encounter Details +--------+ + + + + | Date | Type | Department | Care Team | Description | +--------+ + + + + | 12/11/ | [facility] | | Letter, Clinic | Letters | | 2005 | scribed | | | | +--------+ + + [...] as of this encounter Progress Notes Interface, Infant Teacher In - 04/25/2005 2:09 AM PDT [id number] 12/11/2004 12/11/2004 [id number] NAHOMY Durbin [facility] [address] [id number] or December 11, 2004 Neri Mojica MD [address], [place] [address] RE: BROOKS MARQUEZ II MR #: [id number] Dear Dr. Mojica: I reviewed Brooks in Endocrine Clinic today. This is his second visit our clinic, having established care here in September. To recap, he was diagnosed with type 1 diabetes in April 2002 and initially received his education in [facility]. He has been followed by yourself until September. His control has been very poor, and he was admitted in DKA through our hospital in July 2004. When I saw him in clinic last time, he freely admitted that he had not been taking all of his shots. In clinic today, his HbA1c remains elevated at 11.3%. He is now taking insulin 4 shots a day and maintains that he is taking all his injections now. The family did fax me with some blood sugar numbers several weeks after the first clinic attendance, at which stage I had increased his Lantus insulin substantially and these generally show sugars in the target range. Current insulin dose: He currently is taking Lantus 85 units in the morning, and Novolog insulin using a pen with a carbohydrate insulin ratio of 1 to 10. He also has a correction factor of 1 unit of novolog for every 50 the blood sugar is about 200. Mother supervises his morning and dinner shots; at lunch time, Servando counts his carbs and gives his insulin himself. Blood sugars: Brooks did not bring any numbers to clinic today, and in fact his meter has broken. We provided the family with 2 extra meters in clinic today. Per mother's report, his blood sugars have been running between about 125 and 200 plus in the morning; she does not know about his numbers at lunchtime; at dinnertime, his numbers may well be 200 to 300 and they are also often relatively high before bed. Diet: Brooks is eating snacks which exceed 15 g of carbohydrate in between mealtimes and is not covering these with insulin. I think it would be optimistic to believe that he would start at this present time, although I did scholarship counselor him that this would be optimal to achieve good control for him. He clearly is an adolescent with a large appetite, and with a carbohydrate to insulin ratio of 1 to 10, he is taking on average around 9 units of insulin for breakfast, 10 to 12 units at lunchtime, and 10 to 15 units at dinner. . Hypoglycemia: Alin has had only a couple of hypo episodes which have been mild since I last saw him. These have occurred typically when he has been exercising heavily and has not properly replaced carbohydrates. Alin in himself is well, mother notices that he has more energy now that she less often smells ketones on his breath, and that he is doing better at school. Full review of systems was otherwise negative. Family and Social History: Mom and Brooks's father are , and he is just about to go to stay with his father for spring. Examination Findings: Height was 175 cm and weight was 74.5 kg which is an increase of 4.6 kg from when he was seen in September. I am sure this represents an improvement in his overall amount of insulin received. He looked well, and his blood pressure was 145/79, demonstrating some mild systolic hypertension. Heart rate was not measured. Cardiovascular Examination: Heart sounds present, no murmur. Abdominal Examination: Abdomen was soft and nontender with no masses. Respiratory Examination: Chest was clear to auscultation. Neurologic Examination: Power, tone, and coordination grossly normal. Injection Sites: Brooks is mainly using his abdomen, this showed some lumpiness on the left side and I advised him to rotate. His neck was supple with no thyromegaly. There was no anemia, cyanosis, clubbing, jaundice, or lymphadenopathy. Assessment and Plan: Brooks is a 14-year-old boy with type 1 diabetes who has poor overall control, although his compliance has improved in the last few months. I am hopeful that we will continue to see improvements in his overall control, and I praised him for the improvements that he has already made. As I do not have his blood sugar numbers to review in clinic today, it is very difficult to work out how much insulin he requires. However, based on his still elevated HbA1c, I would think that he does need more insulin and I have therefore elected to increase his Lantus dose from 80 to 85 units in the morning. I have not changed his carbohydrate insulin ratio. Now the family have a working meter, I am hopeful I will receive some numbers for them in the next few weeks and we may be able to do some further insulin adjustments. I will review Brooks again in 4 months' time. Yours sincerely, Ashanti Roque M.D. Cert Occupational Therapy Asst, Pediatric Endocrinology / [id number] / [id number] / [id number] / documented i n this encounter Plan of Treatment +--------+ + + + + | Date | Type | Specialty | Care Team | Description | +--------+ + + + + | 09/03/ | Hospital | | Greg Mathis | | | 2019 | Encounter | | MD [address] | | | | | | [place], | | | | | | [place] [address] | | | | | | [phone] | | | | | | | [...] | | | | | | [place] [address] | | | | | | [phone] | | | | | | | | +--------+ + + + + | 09/13/ | Office | Hematology & | Rodney, | | | 2018 | Visit | Oncology | MD [address] | | | | | | [place], | | | | | | [place] [address] | | | | | | [phone] | | | | | | | | +--------+ + + + + | 01/24/ | Office | Surgery | Neri Steven MD | | | 2019 | Visit | | [address] | | | | | | [place] | | | | | | [place] [address] | | | | | | [phone] | | | | | | | | +--------+ + + + + documented as of this encounter Visit Diagnoses Not on filedocumented in this encounter"
--- OUTSIDE RECORDS SUMMARY | ~2019-08-28 | XMS | Encounter Summary ---
Demographics + + + | Address | [address] | | | [place] [address] | + + + | Home Phone | | + + + | Preferred Language | Unknown | + + + | Marital Status | Single | + + + | Evangelical Affiliation | CAT | + + + | Race | White | + + + | Ethnic Group | Not or | + + + Author + + + | Author | [facility] | + + + | Organization | [facility] | + + + | Address | Unknown | + + + | Phone | Unavailable | + + + Support + + + + + | Name | Relationship | Address | Phone | + + + + + | Samantha Ramos | ECON | [address] | | | | | [place] | | | | | [address] | | + + + + + Care Team Providers + +------+ + | Care Telephone Interceptor Operator Name | Role | Phone | + +------+ + | Neri Mojica MD | PCP | | + +------+ + Encounter Details +--------+ + + + + | Date | Type | Department | Care Team | Description | +--------+ + + + + | 07/16/ | Documentati | Orthopaedics at | Neri Mcgarry, | | | 2005 | on | [address] | [address] | | | | | [address] | [address] | | | | | Mailcode: PV[address] | [facility] [place] | | | | | [facility] | [address] | | | | | [place], [place] | [phone] | | | | | [address] | | | | | | [phone] | | | +--------+ + + + [...] as of this encounter Plan of Treatment +--------+ + + + + | Date | Type | Specialty | Care Team | Description | +--------+ + + + + | 09/03/ | Hospital | | Greg Mathis | | | 2019 | Encounter | | MD [address] | | | | | | [place], | | | | | | [place] [address] | | | | | | [phone] | | | | | | | | +--------+ + + + + | 09/03/ | Appointment | Procedural Care Unit | | | | 2018 | | | | | +--------+ + + + + | 09/03/ | Appointment | Gastroenterology | Greg Mathis | | | 2018 | | | MD [address] | | | | | | [place], | | | | | | [place] [address] | | | | | | [phone] | | | | | | | | +--------+ + + + + | 09/13/ | Office | Hematology & | Rodney | | | 2019 | Visit | Oncology | MD Leo Lees | | | | | | [place], | | | | | | [place] [address] | | | | | | [phone] | | | | | | | | +--------+ + + + + | 01/24/ | Office | Surgery | Neri Steven MD | | | 2020 | Visit | | [address] | | | | | | [place], | | | | | | [place] [address] | | | | | | [phone] | | | | | | | | +--------+ + + + + documented as of this encounter Visit Diagnoses Not on filedocumented in this encounter"
--- OUTSIDE RECORDS SUMMARY | ~2019-08-28 | XMS | Encounter Summary ---
Demographics + + + | Address | [address] | | | [place] [address] | + + + | Home Phone | | + + + | Preferred Language | Unknown | + + + | Marital Status | Single | + + + | Gnosticist Affiliation | Unknown | + + + | Race | Unknown | + + + | Ethnic Group | Unknown | + + + Author + + + | Author | [facility] | | | and [place] | + + + | Organization | [facility] | | | and [place] | + + + | Address | Unknown | + + + | Phone | Unavailable | + + + Support + + + + + | Name | Relationship | Address | Phone | + + + + + | Gia Ramos | ECON | [address] | | | | | [place] | | | | | [address] | | + + + + + Care Team Providers + +------+ + | Care Air Sampler Name | Role | Phone | + +------+ + | Erich Yates | PCP | | + +------+ + Reason for Visit + + + | Reason | Comments | + + + | Care Plan | | + + + Encounter Details +--------+ + + + + | Date | Type | Department | Care Team | Description | +--------+ + + + + | 07/03/ | Telephone | [facility] | [facility], | Care Plan | | 2019 | | GASTROENTEROLOGY | DANA [address] | | | | | [address] [place] | [place], [address] | | | | | [address] [place], [place] | [place], [place] | | | | | [address] | [address] | | | | | [phone] | | | +--------+ + + + + Social History + + + +--------+------+ | Tobacco Use | Types | Packs/Day | Years | Date | | | | | Used | | + + + +--------+------+ | Current Every Day | Cigarettes | | | | | Smoker | | | | | + + + +--------+------+ + +---+---+---+ | Smokeless Tobacco: | [...] + + documented as of this encounter Functional Status + + + + | Functional Status | Response | Date of Assessment | + + + + | Are you deaf or do you have serious | No | 09/20/2018 | | difficulty hearing? | | | + + + + | Are you blind or do you have serious | No | 09/20/2018 | | difficulty seeing, even when wearing | | | | glasses? | | | + + + + | Do you have serious difficulty walking or | No | 09/20/2018 | | climbing stairs? (5 years old or older) | | | + + + + | Do you have difficulty dressing or bathing? | No | 09/20/2018 | | (5 years old or older) | | | + + + + | Because of a physical, mental, or emotional | No | 09/20/2018 | | condition, do you have difficulty doing | | | | errands alone such as visiting a doctor's | | | | office or shopping? [15 years old or | | | | older)] | | | + + + + + + + + | Cognitive Status | Response | Date of Assessment | + + + + | Because of a physical, mental, or emotional | No | 09/20/2018 | | condition, do you have serious difficulty | | | | concentrating, remembering, or making | | | | decisions? (5 years old or older) | | | + + + + documented as of this encounter Plan of Treatment Not on filedocumented as of this encounter Visit Diagnoses Not on filedocumented in this encounter"
--- OUTSIDE RECORDS SUMMARY | ~2019-08-28 | XMS | Encounter Summary ---
Demographics + + + | Address | [address] | | | [place] [address] | + + + | Home Phone | | + + + | Preferred Language | Unknown | + + + | Marital Status | Single | + + + | Hoahaoism Affiliation | CAT | + + + | Race | White | + + + | Ethnic Group | Not or | + + + Author + + + | Author | [facility] | + + + | Organization | [facility] | + + + | Address | Unknown | + + + | Phone | Unavailable | + + + Support + + + + + | Name | Relationship | Address | Phone | + + + + + | Samantha Ramos | ECON | [address] | | | | | [place] | | | | | [address] | | + + + + + Care Team Providers + +------+ + | Care Sericulturist Name | Role | Phone | + +------+ + | Neri Mojica MD | PCP | | + +------+ + Encounter Details +--------+ + + + + | Date | Type | Department | Care Team | Description | +--------+ + + + + | 11/29/ | Telephone | Pediatric | Magaly Gatica, | | | 2007 | | Endocrinology at | MD Ann [address] | | | | | [address] | [address] | | | | | [facility] | [place] [address] | | | | | [address] | | | | | | [place] Mailcode: | | | | | | [address] | | | | | | [place], [place] | | | | | | [address] | | | | | | [phone] | | | +--------+ + + + [...] 2019 | Encounter | | MD [address] | | | | | | [place], | | | | | | [place] [address] | | | | | | [phone] | | | | | | | | +--------+ + + + + | 09/03/ | Appointment | Procedural Care Unit | | | | 2018 | | | | | +--------+ + + + + | 09/03/ | Appointment | Gastroenterology | Greg Mathis | | | 2018 | | | MD [address] | | | | | | [place], | | | | | | [place] [address] | | | | | | [phone] | | | | | | | | +--------+ + + + + | 09/13/ | Office | Hematology & | Rodney | | | 2019 | Visit | Oncology | MD Leo Lees | | | | | | [place] | | | | | | [place] [address] | | | | | | [phone] | | | | | | | | +--------+ + + + + | 01/24/ | Office | Surgery | Neri Steven MD | | | 2020 | Visit | | [address] | | | | | | [place], | | | | | | [place] [address] | | | | | | [phone] | | | | | | | | +--------+ + + + + documented as of this encounter Visit Diagnoses Not on filedocumented in this encounter"
--- OUTSIDE RECORDS SUMMARY | ~2019-08-28 | XMS | Encounter Summary ---
Demographics + + + | Address | [address] | | | [place] [address] | + + + | Home Phone | | + + + | Preferred Language | Unknown | + + + | Marital Status | Single | + + + | Mormonism Affiliation | CAT | + + + | Race | White | + + + | Ethnic Group | Not or | + + + Author + + + | Author | [facility] | + + + | Organization | [facility] | + + + | Address | Unknown | + + + | Phone | Unavailable | + + + Support + + + + + | Name | Relationship | Address | Phone | + + + + + | Samantha Ramos | ECON | [address] | | | | | [place] | | | | | [address] | | + + + + + Care Team Providers + +------+ + | Care Clinical Rehabilitation Aide Name | Role | Phone | + +------+ + | Neri Mojica MD | PCP | | + +------+ + Reason for Visit + + + | Reason | Comments | + + + | Type 1 diabetes | | | mellitus | | + + + Benefits Check (Routine) +--------+ + + + + + | Status | Reason | Specialty | Diagnoses / | Referred By | Referred To | | | | | Procedures | Contact | Contact | +--------+ + + + + + | Closed | Specialty | Endocrinology | Diagnoses | [place], | [facility], | | | Services | , Diabetes & | Type I | Neri Reynoso MD | Ashanti North MD | | | Required | Metabolism | (juvenile | [place] | [address] | | | | | type) | CLINIC | [facility] | | | | | diabetes | [address] | [address] | | | | | mellitus | BUILDING | [place], [place] | | | | | without | [address] | [address] | | | | | mention of | [address] | Phone: | | | | | complication | [place], | [phone] | | | | | , not stated | [place] [address] | Fax: | | | | | as | Phone: | [phone] | | | | | uncontrolled | [phone] | | | | | | | Fax: | | | | | | | [phone] | | +--------+ + + + + + Encounter Details +--------+---------+ + + + | Date | Type | Department | Care Team | Description | +--------+---------+ + + + | 11/01/ | Office | Efrain Clarke | Ashanti Perla, | DM w/o Complication | | 2007 | Visit | Diabetes Health | [address] | Type I (Primary Dx) | | | | [facility] | [facility] [address] | | | | | [address] | [place], [place] | | | | | [facility] [address] | [address] | | | | | Physician's | [phone] | | | | | [address] | | | | | | [place], [place] | | | | | | [address] | | | | | | [phone] | | | +--------+---------+ + + + [...] + + + | Blood Pressure | 128/73 | 11/01/2007 12:55 PM | | | | | PST | | + + + + + | Pulse | 80 | 11/01/2007 12:55 PM | | | | | PST | | + + + + + | Temperature | - | - | | + + + + + | Respiratory Rate | - | - | | + + + + + | Oxygen Saturation | - | - | | + + + + + | Inhaled Oxygen | - | - | | | Concentration | | | | + + + + + | Weight | 92.3 kg (203 lb 7.8 | 11/01/2007 12:55 PM | | | | oz) | PST | | + + + + + | Height | 183.3 cm (6' 0.17") | 11/01/2007 12:55 PM | | | | | PST | | + + + + + | Body Mass Index | 27.47 | 11/01/2007 12:55 PM | | | | | PST | | + + + + + documented in this encounter Patient Instructions Patient Instructions Ashanti Perla - 11/01/2007 1:53 PM PST1. Fill out log for 1 week a nd fax to me on [phone]- or call/email earlier if blood sugars running consistently low . My email address is [email or web address] 2. Take 1 unit insulin for every 10g carbs you eat a breakfast,lunch and dinner 3. At mealtimes correct with 1 unit insulin for every 50 the blood sugar is above 200. 4. Snacks - can eat 1 carb containing snack between meals - should be 2 hours before or aft er next meal. If contains 15g carb or more cover with insulin. 5. Take lantus 85 units in the morning - check 2am blood sugar if bedtime blood sugar is < 200. 6. Test urine for ketones if blood sugar greater than 300 2x in a row. Call if urine keto shayna moderate or above. documented in this encounter Progress Notes Ashanti Perla - 11/15/2007 4:04 PM PST Addended by: SATISH PERLA MD on: 11/15/2007 4:0 4:18 PM Modules accepted: Level of Service Ashanti Nogueira - 02/2008 1:09 PM PSTClinic Date: 11/02/2006 Clinic: Pediatric Endocrinology Problem List: 1. Type 1 diabetes, diagnosed in April 2002. 2. Persistently elevated HbA1c, currently 11.0%. 3. Current insulin therapy: Lantus 85 units in the morning, Humalog administered by pen 1 unit for 10 g of carbohydrates at breakfast, lunch, dinner, and snacks. Correction factor of 1 unit for every 50 the blood sugars above 200. Identifying Data: Brooks is a 16-year-old boy who attends my clinic today for followup of his type 1 diabetes. He was last seen just over a year ago in September 2005. Interval History: Brooks ihas been well since his last visit, with no hospitalisations or s evere hypoglycemic episodes. Today he attended clinic with his girlfiriend, with whom he sp ends much of the time, and his mother, who he does not live with. He had an elevated spot ur ine microalbumin at his last clinic visit, however his 24 hour urine microalbumin was within normal limits. He states he has had his eyes checked since the last visit. His elevated HbA1c suggests that he continues to have poor compliance, and he readily admits that he james s miss some of his shots, particularly at lunchtime. He also admits to eating without covering his carbohydrates, and giving himself insulin when he is high without eating. He never checks for urine ketones, but his girlfriend states that she often smells his breath to be fruity. His current diabet es routine is to take Lantus 85 units in the morning and then to take Humalog with breakfast, lunch, dinner, and snacks at a carb to insulin ratio with a correction factor as detailed above. He did bring his meter to clinic today, this showed blood sugars ranging f rom the low 100s to the high 300s over the past few days, with approximately 2 tests per day . At the last clinic visit, I made some adjustments to his insulin dose, and asked Brooks to follow up with me with blood sugars, but he did not do so. He had difficulty recalling his carb to insulin ratio. Review of Systems: Full review of systems was otherwise negative. Family and Social History: Detailed above. He is in his senior year at high school. He pl ans to go to technical school of some sort after high school. Medications: Insulin as detailed above. Physical Examination: Brooks is a well-looking and well-grown young man who is in no apparent distress. BP 128/73, Pulse 80, Ht 183.3 cm (6') (84 %ile), Wt 92.300 kg (203 lbs 7.8 oz) (95 %ile). Neck: Supple with no thyromegaly. There is no anemia, cyanosis, clubbing, jaundice, or lymphadenopathy. Cardiovascular: Regular rate and rhythm. No murmur detected. Respiratory: Chest is clear to auscultation. Abdomen: Soft and nontender with no masses or organomegaly. Neurologic: Pattern and coordination grossly normal. Reflexes are not elicited. Peripheries are warm and well perfused. Puberty is not evaluated today. Injection Sites: Brooks only uses his abdomen, this shows some bruising and mild lipohypertrophy on the left side. Assessment: Brooks is an 17-year-old boy with type 1 diabetes who has been under poor control, with HbAics in the 11 range ever since I first met him 3 years ago. He has not followed through on my recommendations from the previous clinic visit, and has not a ttended clinic every 4 months as recommended. Today he attends with his girlfiriend who pro fesses a desire to help improve his diabetes control. Recommendations and plan: Instructions given to Brooks: 1. Fill out log for 1 week and fax to me on [phone]- or call/email earlier if blood sarabia gars running consistently low. My email address is [email or web address] 2. Take 1 unit insulin for every 10g carbs you eat a breakfast,lunch and dinner 3. At mealtimes correct with 1 unit insulin for every 50 the blood sugar is above 200. 4. Snacks - can eat 1 carb containing snack between meals - should be 2 hours before or aft er next meal. If contains 15g carb or more cover with insulin. 5. Take lantus 85 units in the morning - check 2am blood sugar if bedtime blood sugar is < 200. 6. Test urine for ketones if blood sugar greater than 300 2x in a row. Call if urine keto shayna moderate or above. Follow up should be in 4 months, with educator visit. Check UA and spot microalbumin today . Prescriptions for all medications given including a new glucagon kit. documented in this encou nter Plan of Treatment +--------+ + + + + | Date | Type | Specialty | Care Team | Description | +--------+ + + + + | 09/03/ | Hospital | | Greg Mathis | | | 2019 | Encounter | | MD Leo Iglesias | | | | | | [place], | | | | | | [place] [address] | | | | | | [phone] | | | | | | | | +--------+ + + + + | 09/03/ | Appointment | Procedural Care Unit | | | | 2018 | | | | | +--------+ + + + + | 09/03/ | Appointment | Gastroenterology | Greg Mathis | | | 2018 | | | MD Leo Iglesias | | | | | | [place], | | | | | | [place] [address] | | | | | | [phone] | | | | | | | | +--------+ + + + + | 09/13/ | Office | Hematology & | Rodney, | | | 2018 | Visit | Oncology | MD Leo Lees | | | | | | [place], | | | | | | [place] [address] | | | | | | [phone] | | | | | | | | +--------+ + + + + | 01/24/ | Office | Surgery | Neri Steven MD | | | 2020 | Visit | | [address] | | | | | | [place], | | | | | | [place] [address] | | | | | | [phone] | | | | | | | | +--------+ + + + + + + +--------+ + + | Name | Type | Priori | Associated Diagnoses | Order Schedule | | | | ty | | | + + +--------+ + + | [place] COLLECTION | Procedures | Routin | DM w/o | Ordered: 11/01/2007 | | CAPILLARY BLOOD | | e | Complication Type I | | | SPECIMEN | | | | | + + +--------+ + + | [place] GLYCATED | Lab | Routin | DM w/o | Ordered: 11/01/2007 | | HEMOGLOBIN TEST | | e | Complication Type I | | + + +--------+ + + documented as of this encounter Procedures + +--------+ + + + | Procedure Name | Priori | Date/Time | Associated Diagnosis | Comments | | | ty | | | | + +--------+ + + + | HEMOGLOBIN A1C | Routin | 11/01/2007 | DM w/o | Results for this | | (ADULT ENDO ONLY) | e | 12:55 PM | Complication Type I | procedure are in the | | (NO CHG), POC | | PST | | results section. | + +--------+ + + + documented in this encounter Results HEMOGLOBIN A1C (ADULT ENDO ONLY) (NO CHG), POC (11/01/2007 12:55 PM PST) + +-------+ + + + | Component | Value | Ref Range | Performed | Pathologist | | | | | At | Signature | + +-------+ + + + | HEMOGLOBIN | 11.0 | | [facility] | | | A1C (ADULT | | | OF CARE | | | ENDO ONLY) | | | TESTS | | | POC | | | | | + +-------+ + + + + + | Specimen | + + | Blood | + + + + + + + | Performing | Address | City/State/Zipcode | Phone Number | | Organization | | | | + + + + + | [facility] | [address] | [place], [place] | | | [facility] | [address] | [address] | | | TESTS | | | | + + + + + | [facility] | [address] | [place], [place] | | | TESTS | [facility] | [address] | | + + + + + documented in this encounter Visit Diagnoses + + | Diagnosis | + + | Type I (juvenile type) diabetes mellitus without mention of complication, not stated | | as uncontrolled - Primary | + + documented in this encounter
--- OUTSIDE RECORDS SUMMARY | ~2019-08-28 | XMS | Encounter Summary ---
Demographics + + + | Address | [address] | | | [place] [address] | + + + | Home Phone | | + + + | Preferred Language | Unknown | + + + | Marital Status | Single | + + + | Church Affiliation | Unknown | + + + | Race | Unknown | + + + | Ethnic Group | Unknown | + + + Author + + + | Author | [facility] | | | and [place] | + + + | Organization | [facility] | | | and [place] | + + + | Address | Unknown | + + + | Phone | Unavailable | + + + Support + + + + + | Name | Relationship | Address | Phone | + + + + + | Gia Ramos | ECON | [address] | | | | | [place] | | | | | [address] | | + + + + + Care Team Providers + +------+ + | Care Customer Quality Specialist Name | Role | Phone | + +------+ + | Erich Yates | PCP | | + +------+ + Reason for Visit + + + | Reason | Comments | + + + | Abdominal Pain | | + + + Evaluate & Treat (Routine) +--------+--------+ + + + + | Status | Reason | Specialty | Diagnoses / | Referred By | Referred To | | | | | Procedures | Contact | Contact | +--------+--------+ + + + + | Closed | | Gastroenterol | Diagnoses | [place], | [place], | | | | ogy | Type 2 | VIKI Jung | Phi Bond, | | | | | diabetes | [address] | | | | mellitus | [address] [address] | | | | | without | [address] | [place], | | | | | complication | [place], | [place] [address] | | | | | s ([facility]) | [place] [address] | Phone: | | | | | Unspecified | Phone: | [phone] | | | | | abdominal | [phone] | Fax: | | | | | pain | Fax: | [phone] | | | | | Functional | [phone] | | | | | | intestinal | | | | | | | disorder, | | | | | | | unspecified | | | | | | | Procedures | | | | | | | office | | | | | | | visit | | | +--------+--------+ + + + + Encounter Details +--------+---------+ + + + | Date | Type | Department | Care Team | Description | +--------+---------+ + + + | 02/14/ | Office | [facility] [place] | [place], | Diabetic | | 2019 | Visit | GASTROENTEROLOGY | DANA Perry [address] | gastroparesis (HCC) | | | | [address] [place] | [place], [address] | (Primary Dx); Weight | | | | [address] [place], [place] | [place], [place] | loss; Malnutrition, | | | | [address] | [address] | unspecified type | | | | [phone] | | ([facility]); 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 | | | | | | ([facility]); Anemia of | | | | | | chronic renal | | | | | | failure, stage 3 | | | | | | (moderate) ([facility]) | +--------+---------+ + + + Social History + + [...] | | | + +---+---+---+ + + | Tobacco Cessation: Counseling Given: Yes | + + + + +---------+ + | Alcohol Use [...] + + + | Blood Pressure | 120/80 | 02/14/2019 10:16 AM | | | | | PDT | | + + + + + | Pulse | 120 | 02/14/2019 10:16 AM | | | | | PDT | | + + + + + | Temperature | 36.7 C (98 F) | 02/14/2019 10:16 AM | | | | | PDT | | + + + + + | Respiratory Rate | 16 | 02/14/2019 10:16 AM | | | | | PDT | | + + + + + | Oxygen Saturation | 100% | 02/14/2019 10:16 AM | | | | | PDT | | + + + + + | Inhaled Oxygen | - | - | | | Concentration | | | | + + + + + | Weight | 56.4 kg (124 lb 5.4 | 02/14/2019 10:16 AM | | | | oz) | PDT | | + + + + + | Height | - | - | | + + + + + | Body Mass Index | 15.96 | 01/15/2019 2:54 PM | | | | | PDT | [...] documented as of this encounter Progress Notes JuliaVicky laddNENAP - 02/14/2019 10:00 AM PDTFormatting of this note might be differe nt from the original. PATIENT NAME: Brooks Marquez : 1990: AGE: 28 y.o. REFERRED BY: Erich Yates PRIMARY CARE: VIKI Anand Subjective: CHIEF COMPLAINT: Brooks Marquez is a 28 y.o. male referred by VIKI Anand for evaluation and saji tment of abdominal pain with a history of severe gastroparesis. HISTORY OF PRESENT ILLNESS: Patient states that for the past 4-5 years he has been dealing with abdominal pain. It is c onstant. He reports that prior to below the knee amputation of right lower extremity this year, he seemed to have been gaining weight despite severe gastroparesis. However, since surgery, the patient continues to lose approximately 10 pounds each month. He states that he is unable to keep down liquids in addition to food. He reports vomiting water. 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 Patient also has a history of stage III chronic kidney disease. He has been diagnosed with gastroparesis. He has tried erythromycin, metoclopramide, and zo kosta without relief from diabetic gastroparesis. He reports that pain can be so severe that pain medication does not seem to be helping at t his point. MEDICAL, SURGICAL, AND PERSONAL HISTORY: BP 120/80 | Pulse 120 | Temp 36.7 C (98 F) (Temporal) | Resp 16 | Wt 56.4 kg (124 l b 5.4 oz) | SpO2 100% | BMI 15.96 kg/m Allergies Allergen Reactions Codeine Nausea And Vomiting Reaction: Projectile vomit Past Medical History: Diagnosis Date Abdominal pain Arthritis Bowel dysfunction Chronic kidney disease Diabetes (HCC) Dizziness Healed ulcer of left foot on examination Heart palpitations Hypertension Kidney stone Onychomycosis Retinopathy Stress headaches Past Surgical History: Procedure Laterality Date ELBOW SURGERY Right LEG AMPUTATION BELOW KNEE URETEROSCOPY Right 09/19/2018 Procedure: CYSTOSCOPY W/ URETEROSCOPY W/ LASER LITHOTRIPSY WITH STENT PLACEMENT; Surgeon: Tc Mora MD; Location: [facility] MAIN OR Family History Problem Relation Age of Onset Stroke Mother Thyroid disease Mother Heart disease Mother Hypertension Father Bipolar disorder Brother Heart disease Other Grandfather Hypertension Other Grandfather Colon cancer Other Grandfather Hypertension Other Congenital heart disease Other Stroke Other Other (see comment) Other Breast cancer gene BRCA mutation Diabetes Other Kidney disease Other Thyroid disease Other Bipolar disorder Other Prostate cancer Maternal Grandfather Social History Socioeconomic History Marital status: Single Spouse name: Not on file Number of children: Not on file Years of education: Not on file Highest education level: Not on file Social Needs Financial resource strain: Not on file Food insecurity - worry: Not on file Food insecurity - inability: Not on file Transportation needs - medical: Not on file Transportation needs - non-medical: Not on file Occupational History Not on file Tobacco Use Smoking status: Current Every Day Smoker Types: Cigarettes Smokeless tobacco: Never Used Substance and Sexual Activity Alcohol use: No Drug use: Yes Types: Marijuana Comment: daily Sexual activity: Yes Partners: Female control/protection: Condom Other Topics Concern Not on file Social History Narrative Not on file Review of Systems Constitutional: Positive for fever. Negative for diaphoresis, fatigue and unexpected weight change. HENT: Negative for congestion, hearing loss, mouth sores, rhinorrhea and trouble swallowing . Eyes: Negative for redness and visual disturbance. Respiratory: Negative for cough, choking, chest tightness, shortness of breath and wheezing . Cardiovascular: Negative for chest pain, palpitations and leg swelling. Gastrointestinal: Positive for abdominal distention, abdominal pain, anal bleeding, blood i n stool, diarrhea, nausea and vomiting. Negative for rectal pain. Endocrine: Denies enlarged thyroid Genitourinary: Negative for dysuria, flank pain and frequency. Musculoskeletal: Positive for arthralgias, back pain and joint swelling. Skin: Negative for color change and rash. Neurological: Positive for weakness and headaches. Negative for seizures, syncope and numbn ess. Hematological: Does not bruise/bleed easily. Denies anemia or enlarged lymph glands. Psychiatric/Behavioral: Positive for dysphoric mood. The patient is nervous/anxious. Objective: Physical Exam Constitutional: He is oriented to person, place, and time. No distress. Patient appears thin, malnourished, and chronically ill. HENT: Head: Normocephalic and atraumatic. Eyes: No scleral icterus. Abdominal: There is generalized tenderness. Musculoskeletal: Normal range of motion. He exhibits no edema. Patient in wheelchair Neurological: He is alert and oriented to person, place, and time. Skin: Skin is warm and dry. No rash noted. Psychiatric: His speech is normal and behavior is normal. He exhibits a depressed mood. Nursing note and vitals reviewed. Abstract on 02/01/2019 Component Date Value Ref Range Status Result 01/21/2019 01-22-19 no growth after overnight incubation Final Result 01/21/2019 01-23-19 no growth after further incubation. Final Creatinine, External 01/21/2019 1.68* 0.6 - 1.35 Final eGFR, External 01/21/2019 54* 60 - 9,999 Final WBC, External 01/21/2019 9.8 4.6 - 11 Final HGB, External 01/21/2019 11.6* 13.5 - 18 Final HCT, External 01/21/2019 36.6* 41 - 50 Final PLT, External 01/21/2019 258 140 - 440 Final RBC, External 01/21/2019 3.87* 4.3 - 5.7 Final MCV, External 01/21/2019 91 81 - 99 Final RDW, External 01/21/2019 18.8* 81 - 99 Final UA Blood, External 01/21/2019 Moderate Final UA Glucose, External 01/21/2019 Large Final UA Ketones, External 01/21/2019 Negative Final UA Ph, External 01/21/2019 5 5 - 9 Final UA Proteins, External 01/21/2019 >300 Final UA RBC, External 01/21/2019 0 0 - 4 Final UA Specific [place], External 01/21/2019 1.016 1.005 - 1.03 Final UA Leukocyte Esterase, External 01/21/2019 Negative Final Sodium, External 01/21/2019 137 132 - 143 Final Potassium, External 01/21/2019 4.5 3.6 - 5.1 Final Chloride, External 01/21/2019 107 95 - 112 Final Carbon Dioxide, External 01/21/2019 24 19 - 31 Final Calcium, External 01/21/2019 8.5 8.5 - 10.3 Final Protein, Total, External 01/21/2019 6 6 - 8.3 Final Albumin, External 01/21/2019 3* 3.5 - 5 Final Bilirubin, Total, External 01/21/2019 0.2 0 - 1.2 Final ALP, External 01/21/2019 109 31 - 120 Final AST, External 01/21/2019 26 13 - 38 Final ALT, External 01/21/2019 27 7 - 52 Final Lipase, External 01/21/2019 25 11 - 82 Final Glucose, External 01/21/2019 307* 70 - 100 Final BUN, External 01/21/2019 17 6 - 23 Final Neutrophils %, External 01/21/2019 61.6 38 - 80 Final Lymphocytes %, External 01/21/2019 26.8 24 - 44 Final Monocytes %, External 01/21/2019 7.1 0 - 12 Final Eosinophils %, External 01/21/2019 3.9 0 - 6 Final COLLECTION METHOD 1 01/21/2019 Clean catch Final Color 01/21/2019 yellow Final Bilirubin, Urine 01/21/2019 Negative Negative Final CASTS 01/21/2019 Negative Final WBC 01/21/2019 30* 0 - 4 Final Clarity 01/21/2019 Clear Final Nitrite, Urine 01/21/2019 Negative Negative Final Urobilinogen, Urine 01/21/2019 Normal < 0.2 mg/dL, 1.0 mg/dL, 4.0 mg/dL, Normal, 1.0 E .U./dL, 0.2 E.U./dL, 0.2 mg/dL, Negative, 1 mg/dL, <2.0 mg/dL Final Squamous epithelial, UA, POC 01/21/2019 1+ Final CRYSTAL UA 01/21/2019 Negative Final BACTERIA UA 01/21/2019 Negative Negative /HPF Final THC RESULT 01/21/2019 Positive Final Cocaine 01/21/2019 None Detected Final Opiates 01/21/2019 Positive Final Amphetamines 01/21/2019 Negative Final Methamphetamine 01/21/2019 None Dectected Final PCP Screen, Urine (25 NG/ML) 01/21/2019 None Detected Final MDMA 01/21/2019 None Detected Final Barbiturates Screen, Urine 01/21/2019 None Detected Final Benzodiazepines Screen, Urine 01/21/2019 None Detected Final Methadone Screen, Urine 01/21/2019 None Detected Final Tricyclics, UR 01/21/2019 Negative Negative Final Oxycodone 01/21/2019 None Detected Final Buprenorphine 01/21/2019 None Detected Final Anion Gap 01/21/2019 11 7 - 21 mmol/L Final BUN/Creatinine Ratio 01/21/2019 11.1 6 - 28.6 Final Globulin 01/21/2019 3 1.8 - 3.5 Final Albumin/Globulin Ratio 01/21/2019 1* 1.1 - 2.4 Final Ketones, Blood 01/21/2019 Negative Final Result 01/21/2019 1.1 0.5 - 2.2 Final MCH 01/21/2019 30 27 - 33 Final MCHC 01/21/2019 33 30 - 36 Final Basophils % 01/21/2019 0.5 0 - 2 Final pH: 01/21/2019 7.37 7.35 - 7.45 Final PCO2 01/21/2019 36.1 32 - 45 Final HCO3, Arterial 01/21/2019 20.5 20.0 - 26.0 mmol/L Final TCO2, Arterial, POC 01/21/2019 22 19 - 25 mmol/L Final O2 SATURATION CALCULATED 01/21/2019 98.8 95 - 100 Final PO2 01/21/2019 108* 75 - 100 Final Other 01/21/2019 -3 -3 - 3 Final MESSI Gastric Emptying Study 08/27/2015: IMPRESSION: Patient had been administered reglan, prilosec and dilaudid prior to exam, which are known to affect gastric emptying. Despite this, the gastric emptying is markedly delayed, consistent with severe gastroparesis. Assessment: 1. Diabetic gastroparesis (HCC) 2. Weight loss 3. Malnutrition, unspecified type (HCC) 4. Type 1 diabetes mellitus with nephropathy (HCC) 5. Anemia of chronic renal failure, stage 3 (moderate) (HCC) Plan: Urgent referral to [facility] gastro enterology. Patient significantly malnourished due to nausea and vomiting. CC: VIKI Anand This note was dictated using voice recognition software. 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
--- OUTSIDE RECORDS SUMMARY | ~2019-08-28 | XMS | Encounter Summary ---
Demographics + + + | Address | [address] | | | [place] [address] | + + + | Home Phone | | + + + | Preferred Language | Unknown | + + + | Marital Status | Single | + + + | Faith Affiliation | CAT | + + + | Race | White | + + + | Ethnic Group | Not or | + + + Author + + + | Author | [facility] | + + + | Organization | [facility] | + + + | Address | Unknown | + + + | Phone | Unavailable | + + + Support + + + + + | Name | Relationship | Address | Phone | + + + + + | Samantha Ramos | ECON | [address] | | | | | [place] | | | | | [address] | | + + + + + Care Team Providers + +------+ + | Care Overnight Caregiver Name | Role | Phone | + +------+ + | Neri Mojica MD | PCP | | + +------+ + Reason for Visit + + + | Reason | Comments | + + + | Refill Request | | + + + Encounter Details +--------+--------+ + + + | Date | Type | Department | Care Team | Description | +--------+--------+ + + + | 06/08/ | Refill | Pediatric | RoqueDejonyn Can, | Refill Request | | 2006 | | Endocrinology at | MD [address] | | | | | [address] | [address] | | | | | [facility] | [place], [place] | | | | | [address] [facility] | [address] | | | | | [facility] Mailcode: | [phone] | | | | | [address] | | | | | | [place], [place] | | | | | | [address] | | | | | | [phone] | | | +--------+--------+ + + + [...] | | Greg Mathis | | | 2018 | Encounter | | MD [address] | | | | | | [place] | | | | | | [place] [address] | | | | | | [phone] | | | | | | | [...] | | | | | | [place] [address] | | | | | | [phone] | | | | | | | | +--------+ + + + + | 09/13/ | Office | Hematology & | Rodney, | | | 2018 | Visit | Oncology | MD Nabeel [address] | | | | | | [place], | | | | | | [place] [address] | | | | | | [phone] | | | | | | | | +--------+ + + + + | 01/24/ | Office | Surgery | Neri Steven MD | | | 2019 | Visit | | [address] | | | | | | [place], | | | | | | [place] [address] | | | | | | [phone] | | | | | | | | +--------+ + + + + documented as of this encounter Visit Diagnoses Not on filedocumented in this encounter"
--- OUTSIDE RECORDS SUMMARY | ~2019-08-28 | XMS | Encounter Summary ---
Demographics + + + | Address | [address] | | | [place] [address] | + + + | Home Phone | | + + + | Preferred Language | Unknown | + + + | Marital Status | Single | + + + | Taoist Affiliation | CAT | + + + | Race | White | + + + | Ethnic Group | Not or | + + + Author + + + | Author | [facility] | + + + | Organization | [facility] | + + + | Address | Unknown | + + + | Phone | Unavailable | + + + Support + + + + + | Name | Relationship | Address | Phone | + + + + + | Samantha Ramos | ECON | [address] # | | | | | [place] | | | | | [address] | | + + + + + Care Team Providers + +------+ + | Care Gaming Table Operator Name | Role | Phone | + +------+ + | Neri Mojica MD | PCP | | + +------+ + Encounter Details +--------+ + + + + | Date | Type | Department | Care Team | Description | +--------+ + + + + | 04/26/ | Results | Orthopaedics at | Neri Mcgarry, | | | 2005 | Only | [facility] [address] | [address] | | | | | [address] | [address] | | | | | Mailcode: [id number] | [place], [place] | | | | | [facility] | [address] | | | | | [place], [place] | [phone] | | | | | [address] | | | | | | [phone] | | | +--------+ + + + [...] 2019 | Encounter | | MD Harris [address] | | | | | | [place] | | | | | | [place] [address] | | | | | | [phone] | | | | | | | [...] | | | | | | [place] [address] | | | | | | [phone] | | | | | | | | +--------+ + + + + | 09/13/ | Office | Hematology & | Rodney | | | 2019 | Visit | Oncology | MD Leo Le[address] | | | | | | [place] | | | | | | [place] [address] | | | | | | [phone] | | | | | | | | +--------+ + + + + | 01/24/ | Office | Surgery | Neri Steven MD | | | 2020 | Visit | | [address] | | | | | | [place], | | | | | | [place] [address] | | | | | | [phone] | | | | | | | | +--------+ + + + + + +---------+--------+ + + | Name | Type | Priori | Associated Diagnoses | Date/Time | | | | ty | | | + +---------+--------+ + + | GENERAL OUTSIDE | Imaging | Routin | | 04/26/2006 12:00 AM | | FILMS | | e | | PDT | + +---------+--------+ + + | GENERAL OUTSIDE | Imaging | Routin | | 06/14/2006 12:00 AM | | FILMS | | e | | PDT | + +---------+--------+ + + | CT OUTSIDE FILMS | Imaging | Routin | | 06/24/2006 12:00 AM | | | | e | | PDT | + +---------+--------+ + + documented as of this encounter Visit Diagnoses Not on filedocumented in this encounter"
--- OUTSIDE RECORDS SUMMARY | ~2019-08-28 | XMS | Encounter Summary ---
Demographics + + + | Address | [address] | | | [place] [address] | + + + | Home Phone | | + + + | Preferred Language | Unknown | + + + | Marital Status | Single | + + + | Buddhist Affiliation | CAT | + + + | Race | White | + + + | Ethnic Group | Not or | + + + Author + + + | Author | [facility] | + + + | Organization | [facility] | + + + | Address | Unknown | + + + | Phone | Unavailable | + + + Support + + + + + | Name | Relationship | Address | Phone | + + + + + | Samantha Ramos | ECON | [address] | | | | | [place] | | | | | [address] | | + + + + + Care Team Providers + +------+ + | Care Cloth Beamer Name | Role | Phone | + +------+ + | Erich Yates PA-C | PCP | | + +------+ + Reason for Visit + + + | Reason | Comments | + + + | Medical Records | | | Review | | + + + Encounter Details +--------+ + + + + | Date | Type | Department | Care Team | Description | +--------+ + + + + | 08/01/ | Abstract | Digestive Health | Alison Holley, | Medical Records | | 2019 | | Center at [facility] [address] | [address] | Review | | | | [address] | [place], [place] | | | | | Mailcode: Center | [address] | | | | | for [facility] and | [phone] | | | | | [facility], [facility] [address] | | | | | | [place], [place] | | | | | | [address] | | | | | | [phone] | | | +--------+ + + + [...] 2019 | Encounter | | MD Harris [address] | | | | | | [place] | | | | | | [place] [address] | | | | | | [phone] | | | | | | | [...] | | | | | | [place] [address] | | | | | | [phone] | | | | | | | | +--------+ + + + + | 09/13/ | Office | Hematology & | Rodney | | | 2018 | Visit | Oncology | MD Nabeel [address] | | | | | | [place] | | | | | | [place] [address] | | | | | | [phone] | | | | | | | | +--------+ + + + + | 01/24/ | Office | Surgery | Neri Steven MD | | | 2020 | Visit | | [address] | | | | | | [place], | | | | | | [place] [address] | | | | | | [phone] | | | | | | | | +--------+ + + + + documented as of this encounter Visit Diagnoses Not on filedocumented in this encounter"
--- OUTSIDE RECORDS SUMMARY | ~2019-08-28 | XMS | Clinical Summary ---
Demographics + + + | Address | [address] | | | [place] [address] | + + + | Home Phone | | + + + | Preferred Language | Unknown | + + + | Marital Status | Single | + + + | Jew Affiliation | Unknown | + + + | Race | Unknown | + + + | Ethnic Group | Unknown | + + + Author + + + | Author | [facility] | | | and [place] | + + + | Organization | [facility] | | | and [place] | + + + | Address | Unknown | + + + | Phone | Unavailable | + + + Support + + + + + | Name | Relationship | Address | Phone | + + + + + | Gia Ramos | ECON | [address] | | | | | [place] | | | | | [address] | | + + + + + Care Team Providers + +------+ + | Care Furs Salesperson Name | Role | Phone | + +------+ + | Erich Yates | PCP | | + +------+ + Allergies + + + + + + | Active Allergy | Reactions | Severity | Noted | Comments | | | | | Date | | + + + + + + | Codeine | Nausea And Vomiting | | 05/15/20 | Reaction: | | | | | 18 | Projectile vomit | + + + + + + Medications + + + +---------+------+------+-------+ | Medication | Sig | Dispensed | Refills | Star | End | Statu | | | | | | t | Date | s | | | | | | Date | | | + + + +---------+------+------+-------+ | insulin lispro | Inject under the | | 0 | | | Activ | | (HUMALOG KWIKPEN) | skin 3 times daily | | | | | e | | 100 units/mL | (before meals). | | | | | | | injection (pen) | | | | | | | + + + +---------+------+------+-------+ | | Take 1 tablet by | | 0 | | | Activ | | HYDROcodone-acetamin | mouth every 6 hours | | | | | e | | ophen (NORCO) | as needed for Pain. | | | | | | | 7.5-325 mg per | | | | | | | | tablet | | | | | | | + + + +---------+------+------+-------+ | insulin glargine | Inject 40 Units | | 0 | | | Activ | | (LANTUS SOLOSTAR) | under the skin | | | | | e | | 100 units/mL | nightly. | | | | | | | injection (pen) | | | | | | | + + + +---------+------+------+-------+ | Furosemide (LASIX | Take 40 mg by mouth | | 0 | | | Activ | | PO) | 2 times daily. | | | | | e | + + + +---------+------+------+-------+ | metoprolol | Take 50 mg by mouth | | 0 | | | Activ | | tartrate (LOPRESSOR) | 2 times daily. | | | | | e | | 50 mg tablet | | | | | | | + + + +---------+------+------+-------+ | ondansetron | Take 8 mg by mouth | | 0 | | | Activ | | (ZOFRAN ODT) 8 mg | every 8 hours as | | | | | e | | disintegrating | needed for Nausea. | | | | | | | tablet | | | | | | | + + + +---------+------+------+-------+ | lisinopril | Take 1 tablet by | | 0 | 12/2 | | Activ | | (PRINIVIL, ZESTRIL) | mouth 2 times daily. | | | 2/20 | | e | | 10 mg tablet | | | | 18 | | | + + + +---------+------+------+-------+ | dicyclomine | | | 0 | 08/3 | | Activ | | (BENTYL) 20 MG | | | | 0/20 | | e | | tablet | | | | 18 | | | + + + +---------+------+------+-------+ | raNITIdine | Take 150 mg by mouth | | 0 | | | Activ | | (ZANTAC) 150 mg | 2 times daily. | | | | | e | | tablet | | | | | | | + + + +---------+------+------+-------+ | GLUCAGON EMERGENCY | | | 0 | 10/2 | | Activ | | 1 MG injection | | | | 5/20 | | e | | | | | | 18 | | | + + + +---------+------+------+-------+ | | TAKE TABLET BY MOUTH | | 0 | 05/3 | | Activ | | HYDROcodone-acetamin | 4 TIMES DAILY | | | 1/20 | | e | | ophen (NORCO) 10-325 | | | | 19 | | | | mg per tablet | | | | | | | + + + +---------+------+------+-------+ Active Problems + + + | Problem | Noted Date | + + + | Chest pain | 06/09/2019 | + + + | Acute renal failure superimposed on stage 3 chronic kidney | 06/09/2019 | | disease | | + + + | Anemia of chronic renal failure, stage 3 (moderate) | 01/15/2019 | + + + | CKD (chronic kidney disease), stage III | 01/15/2019 | + + + | Electrolyte imbalance risk | 01/15/2019 | + + + | Metabolic acidosis | 01/15/2019 | + + + | Nephrotic range proteinuria | 01/15/2019 | + + + | 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 | 01/15/2019 | | with type 1 diabetes mellitus | | + + + | Right ureteral stone | 09/19/2018 | + + + | Hyperkalemia | 09/19/2018 | + + + | Type 1 diabetes mellitus with nephropathy | 09/19/2018 | + + + + + | Overview: Overview: | | ICD10 | + + + + + | Hypertension | 09/19/2018 | + + + | Marijuana use | 09/19/2018 | + + + | Current smoker | 09/19/2018 | + + + | Hyperglycemia due to type 1 diabetes mellitus | 09/17/2015 | + + + | Diabetic gastroparesis | 08/27/2015 | + + + | Epigastric pain | 08/26/2015 | + + + | Fissure in skin of foot | 08/26/2015 | + + + | Diabetic ketoacidosis without coma associated with type 1 | 08/25/2015 | | diabetes mellitus | | + + + Encounters +--------+ + + + + | Date | Type | Specialty | Care Team | Description | +--------+ + + + + | 07/03/ | Telephone | Gastroenterology | Allie, | Care Plan | | 2019 | | | DANA Perry | | +--------+ + + + + | 06/22/ | Telephone | Nephrology | Winston Whitman MD | Other (Appointment | | 2018 | | | | reminder call) | +--------+ + + + + | 06/20/ | Orders Only | Nephrology | Winston Whitman MD | CKD (chronic kidney | | 2018 | | | | disease), stage III | | | | | | (HCC) (Primary Dx) | +--------+ + + + + | 06/09/ | Hospital | Internal Medicine | Diony Hollis, | | | 2018 - | Encounter | | Solomon Jean MD | | | | | | Jannette Spears MD | | | 06/10/ | | | Andrey Gatica DO | | | 2018 | | | | | +--------+ + + + + from Last 3 Months Immunizations + + + + | Name | Administration Dates | Next Due | + + + + | DTP (PED) | 06/18/1991, 04/26/1990, 02/24/1990, | | | | 01/03/1990 | | + + + + | HEP B, 3 DOSE | 12/15/2001 | | | (ADULT) | | | + + + + | HIB HBOC CONJUGATE, | 02/17/1991, 11/02/1990, 09/02/1990 | | | 4 DOSE (PED) | | | + + + + | Hep B (PED/ADOL) 3 | 08/16/2002, 12/15/2001, 05/17/1999 | | | DOSE | | | + + + + | INFLUENZA PF | 09/20/2018, 07/02/2015 | | | QUAD(PED/ADOL/ADULT) | | | | ,PSKT or VIAL | | | + + + + | INFLUENZA, | 08/23/2006 | | | UNSPECIFIED | | | | FORMULATION | | | + + + + | MENINGOCOCCAL | 05/09/2006 | | | CONJUGATE,MENACTRA | | | | (PED/ADOL/ADULT) | | | + + + + | MMR, 2 DOSE | 05/15/1999, 02/17/1991 | | | (PED/ADULT) | | | + + + + | PNEUMOCOCCAL | 07/02/2015 | | | CONJUGATE 13-VALENT | | | | (PCV13) | | | + + + + | PNEUMOCOCCAL | 05/25/2014, 04/10/2014 | | | POLYSACCHARIDE | | | | 23-VALENT (PPSV23) | | | + + + + | POLIOVIRUS,OPV | 05/15/1999, 06/18/1991, 05/02/1990, | | | (LIVE) | 02/24/1990, 01/03/1990 | | + + + + | TD PF (2 LF TETANUS) | 05/15/1999 | | | (ADOL/ADULT) | | | + + + + | TDAP, (ADOL/ADULT) | 02/17/2014, 05/09/2006 | | + + + + | VARICELLA, 2 DOSE | 12/26/1995 | | | (VARIVAX) | | | + + + + Family History + + + + + | Medical History | Relation | Name | Comments | + + + + + | Bipolar disorder | Brother | | | + + + + + | Hypertension | Father | | | + + + + + | Prostate cancer | Maternal | | | | | Grandfath | | | | | er | | | + + + + + | Heart disease | Mother | | | + + + + + | Stroke | Mother | | | + + + + + | Thyroid disease | Mother | | | + + + + + | Colon cancer | Other | | Grandfather | + + + + + | Heart disease | Other | | Grandfather | + + + + + | Hypertension | Other | | Grandfather | + + + + + | Bipolar disorder | Other | [place] | | | | | her | | + + + + + | Congenital heart | Other | [place] | | | disease | | her | | + + + + + | Diabetes | Other | [place] | | | | | her | | + + + + + | Hypertension | Other | [place] | | | | | her | | + + + + + | Kidney disease | Other | [place] | | | | | her | | + + + + + | Other (see comment) | Other | [place] | Breast cancer gene BRCA mutation | | | | her | | + + + + + | Stroke | Other | [place] | | | | | her | | + + + + + | Thyroid disease | Other | [place] | | | | | her | | + + + + + + + +--------+ + | Relation | Name | Status | Comments | + + +--------+ + | Brother | | | | + + +--------+ + | Father | | Alive | | + + +--------+ + | Maternal Grandfather | | | | + + +--------+ + | Mother | | Alive | | + + +--------+ + | Other | | | | + + +--------+ + | Other | Grandmoth | Alive | | | | er | | | + + +--------+ + Social History + + + +--------+------+ [...] recent travel history available. | + + Last Filed Vital Signs + + + + + | Vital Sign | Reading | Time Taken | Comments | + + + + + | Blood Pressure | 161/98 | 06/10/2019 8:00 AM | | | | | PDT | | + + + + + | Pulse | 108 | 06/10/2019 8:00 AM | | | | | PDT | | + + + + + | Temperature | 36.4 C (97.6 F) | 06/10/2019 8:00 AM | | | | | PDT | | + + + + + | Respiratory Rate | 18 | 06/10/2019 8:00 AM | | | | | PDT | | + + + + + | Oxygen Saturation | 98% | 06/10/2019 8:00 AM | | | | | PDT | | + + + + + | Inhaled Oxygen | - | - | | | Concentration | | | | + + + + + | Weight | 58.9 kg (129 lb 12.8 | 06/09/2019 8:20 PM | | | | oz) | PDT | | + + + + + | Height | 190.5 cm (6' 3") | 06/09/2019 8:20 PM | | | | | PDT | | + + + + + | Body Mass Index | 16.22 | 06/09/2019 8:20 PM | | | | | PDT | | + + + + + Plan of Treatment + + + + + | Health Maintenance | Due Date | Last Done | Comments | + + + + + | Diabetic Eye Exam | | | | | | 8 | | | + + + + + | Diabetic Foot Exam | | | | | | 8 | | | + + + + + | Vaccine: Influenza | | 09/20/2018, 07/02/2015, | | | (#1) | 9 | 08/23/2006 | | + + + + + | Hemoglobin A1c | | 06/10/2019, 05/15/2018 | | | Screening | 9 | | | + + + + + | Vaccine: | | 02/17/2014, 05/09/2006, | | | Dtap/Tdap/Td (7 - | 4 | 05/15/1999, Additional history | | | Td) | | exists | | + + + + + | Vaccine: | Completed | 07/02/2015, 05/25/2014, | | | Pneumococcal - | | 04/10/2014 | | + + + + + Implants + +-------+--------+ +--------+--------+--------+ | Implanted | Type | Area | Manufacture | Device | Shelf | Model | | | | | r | | Expira | / | | | | | | Identi | tion | Serial | | | | | | fier | Date | / Lot | + +-------+--------+ +--------+--------+--------+ | Stent Uret W/Pstnr Frm 6 | Stent | Right: | COOK | | 07/14/ | [id number] | | - [id number]: | | | [employer] | | 2020 | / | | Qty: 1 on 09/19/2018 by | | Ureter | - JOYCE | | | [id number] | | Tc Mora MD at | | | | | | 43 | | [facility] | | | | | | | | [facility] | | | | | | | + +-------+--------+ +--------+--------+--------+ Procedures + +--------+ + + + | Procedure Name | Priori | Date/Time | Associated Diagnosis | Comments | | | ty | | | | + +--------+ + + + | NM LUNG PERFUSION | Routin | 06/10/2019 | | Results for this | | VENTILATION | e | 9:53 AM | | procedure are in the | | | | PDT | | results section. | + +--------+ + + + | XR CHEST 2 VIEWS | Routin | 06/10/2019 | | Results for this | | | e | 8:43 AM | | procedure are in the | | | | PDT | | results section. | + +--------+ + + + | POC GLUCOSE (NON | Routin | 06/10/2019 | | Results for this | | ORD) | e | 8:12 AM | | procedure are in the | | | | PDT | | results section. | + +--------+ + + + | TROPONIN I | Routin | 06/10/2019 | | Results for this | | | e | 5:58 AM | | procedure are in the | | | | PDT | | results section. | + +--------+ + + + | HEMOGLOBIN A1C | Routin | 06/10/2019 | | Results for this | | | e | 5:58 AM | | procedure are in the | | | | PDT | | results section. | + +--------+ + + + | TSH | Routin | 06/10/2019 | | Results for this | | | e | 5:58 AM | | procedure are in the | | | | PDT | | results section. | + +--------+ + + + | BASIC METABOLIC | Routin | 06/10/2019 | | Results for this | | PANEL | e | 5:58 AM | | procedure are in the | | | | PDT | | results section. | + +--------+ + + + | CBC NO DIFFERENTIAL | Routin | 06/10/2019 | | Results for this | | | e | 5:58 AM | | procedure are in the | | | | PDT | | results section. | + +--------+ + + + | ECG 12 LEAD | Routin | 06/10/2019 | | Results for this | | | e | 4:23 AM | | procedure are in the | | | | PDT | | results section. | + +--------+ + + + | POC GLUCOSE (NON | Routin | 06/10/2019 | | Results for this | | ORD) | e | 3:10 AM | | procedure are in the | | | | PDT | | results section. | + +--------+ + + + | TROPONIN I | Routin | 06/09/2019 | | Results for this | | | e | 11:38 PM | | procedure are in the | | | | PDT | | results section. | + +--------+ + + + | LIPID PANEL | Routin | 06/09/2019 | | Results for this | | | e | 11:38 PM | | procedure are in the | | | | PDT | | results section. | + +--------+ + + + | TROPONIN I | STAT | 06/09/2019 | | Results for this | | | | 9:05 PM | | procedure are in the | | | | PDT | | results section. | + +--------+ + + + | POC GLUCOSE (NON | Routin | 06/09/2019 | | Results for this | | ORD) | e | 8:30 PM | | procedure are in the | | | | PDT | | results section. | + +--------+ + + + from Last 3 Months Results NM Lung Perfusion Ventilation (06/10/2019 9:53 AM PDT) + + | Specimen | + + | | + + + + + | Narrative | Performed At | + + + | PULMONARY PERFUSION IMAGING, PARTICULATE, WITH VENTILATION; | [facility] | | REBREATHING AND WASHOUT, WITH OR WITHOUT SINGLE BREATH CLINICAL | | | INFORMATION: Rule out pulmonary embolism. COMPARISON: 06/10/2019 | | | chest x-ray PROCEDURE: Following the inhalation of 14 mCi xenon | | | 133, ventilation images were obtained in the standard projections | | | according to department protocol. Washout imaging was performed. | | | Following the intravenous administration of 6.1 mCi of Tc-99m MAA, | | | perfusion images were obtained in standard projections according to | | | department protocol. FINDINGS: Homogeneous radiotracer uptake | | | seen throughout the lungs on ventilation images. Mild retention of | | | radiotracer throughout the lungs on more delayed images. Minimal | | | heterogeneity radiotracer uptake throughout the lungs on perfusion | | | images. No segmental or subsegmental perfusion defect to represent | | | pulmonary embolism. IMPRESSION: Very low probability for | | | pulmonary embolism. Signed by: Bandar Lema Chet Sign | | | Date/Time: 06/10/2019 10:12 AM | | + + + + + | Procedure Note | + + | Cheng, Rad Results In - 06/10/2019 10:15 AM PDT | | PULMONARY PERFUSION IMAGING, PARTICULATE, WITH VENTILATION; REBREATHING | | AND WASHOUT, WITH OR WITHOUT SINGLE BREATH | | | | CLINICAL INFORMATION: | | Rule out pulmonary embolism. | | | | COMPARISON: | | 06/10/2019 chest x-ray | | | | PROCEDURE: | | Following the inhalation of 14 mCi xenon 133, ventilation images were | | obtained in the standard projections according to department protocol. | | Washout imaging was performed. Following the intravenous administration | | of 6.1 mCi of Tc-99m MAA, perfusion images were obtained in standard | | projections according to department protocol. | | | | FINDINGS: | | Homogeneous radiotracer uptake seen throughout the lungs on ventilation | | images. Mild retention of radiotracer throughout the lungs on more | | delayed images. | | | | Minimal heterogeneity radiotracer uptake throughout the lungs on | | perfusion images. No segmental or subsegmental perfusion defect to | | represent pulmonary embolism. | | | | IMPRESSION: | | Very low probability for pulmonary embolism. | | | | | | | | Signed by: Bandar Lema Chet | | Sign Date/Time: 06/10/2019 10:12 AM | + + + +---------+ + + | Performing | Address | City/State/Zipcode | Phone Number | | Organization | | | | + +---------+ + + | [facility] | | | | + +---------+ + + XR Chest 2 Vws (06/10/2019 8:43 AM PDT) + + | Specimen | + + | | + + + + + | Narrative | Performed At | + + + | CHEST TWO VIEWS CLINICAL INFORMATION: Chest pain. | [facility] | | COMPARISON: None FINDINGS: Heart, lungs and vessels normal. No | | | pneumothorax, pleural effusion or adenopathy. No significant bone | | | abnormality. IMPRESSION: Negative chest. Signed by: | | | Bandar Lema, José Sign Date/Time: 06/10/2019 8:48 AM | | + + + + + | Procedure Note | + + | Cheng, Rad Results In - 06/10/2019 8:52 AM PDT | | CHEST TWO VIEWS | | | | CLINICAL INFORMATION: | | Chest pain. | | | | COMPARISON: | | None | | | | FINDINGS: | | Heart, lungs and vessels normal. No pneumothorax, pleural effusion or | | adenopathy. No significant bone abnormality. | | | | IMPRESSION: | | Negative chest. | | | | | | | | Signed by: Bandar Lema Chet | | Sign Date/Time: 06/10/2019 8:48 AM | + + + +---------+ + + | Performing | Address | City/State/Zipcode | Phone Number | | Organization | | | | + +---------+ + + | [facility] | | | | + +---------+ + + POC Glucose (06/10/2019 8:12 AM PDT)Only the most recent of 3 results within the time alexis od is included. + + + + + + | Component | Value | Ref Range | Performed | Pathologist | | | | | At | Signature | + + + + + + | Glucose, | 265 (H)Comment: Testing | 65 - 99 mg/dL | [facility] | | | POC | performed at [facility];[address] | | LABORATORY | | | | [address] [facility];[place], [place] | | | | | | [address] | | | | + + + + + + + + | Specimen | + + | | + + + + + + + | Performing | Address | City/State/Zipcode | Phone Number | | Organization | | | | + + + + + | [facility] | [address] | [place] [address] | [phone] | + + + + + Troponin I (06/10/2019 5:58 AM PDT)Only the most recent of 3 results within the time pilar stoddard is included. + + + + + + | Component | Value | Ref Range | Performed | Pathologist | | | | | At | Signature | + + + + + + | Troponin I | <0.006Comment: 0.04 | 0.00 - 0.04 | [facility] | | | | ng/mL or less | ng/mL | LABORATORY | | | | Negative, repeat | | | | | | testing in four to six | | | | | | hour ifclinically | | | | | | indicted0.05 to 0.77 | | | | | | ng/mL | | | | | | Suspicious for | | | | | | myocardial injury. | | | | | | Serial measurementsmay | | | | | | be necessary to confirm | | | | | | or exclude the diagnosis | | | | | | of acute | | | | | | coronarysyndrome. Repeat | | | | | | testing in four to six | | | | | | hours if indicated.0.78 | | | | | | or greater ng/mL | | | | | | Consistent with | | | | | | myocardial injury. | | | | | | Clinical andlaboratory | | | | | | correlation recommended. | | | | | | Testing performed at | | | | | | [facility];[address] | | | | | | [facility];[place] [address] | | | | + + + + + + + + | Specimen | + + | | + + + + + + + | Performing | Address | City/State/Zipcode | Phone Number | | Organization | | | | + + + + + | [facility] | [address] | [place] [address] | [phone] | + + + + + CBC no Differential (06/10/2019 5:58 AM PDT) + + + + + + | Component | Value | Ref Range | Performed | Pathologist | | | | | At | Signature | + + + + + + | WBC | 9.25 | 3.80 - 11.00 | [facility] | | | | | K/uL | LABORATORY | | + + + + + + | RBC | 2.96 (L) | 4.20 - 5.70 | [facility] | | | | | M/uL | LABORATORY | | + + + + + + | Hemoglobin | 9.0 (L) | 13.2 - 17.0 | [facility] | | | | | g/dL | LABORATORY | | + + + + + + | Hematocrit | 27.5 (L) | 39.0 - 50.0 % | [facility] | | | | | | LABORATORY | | + + + + + + | MCV | 92.8 | 80.0 - 100.0 fl | [facility] | | | | | | LABORATORY | | + + + + + + | MCH | 30.4 | 27.0 - 34.0 pg | [facility] | | | | | | LABORATORY | | + + + + + + | MCHC | 32.8 | 32.0 - 35.5 | [facility] | | | | | g/dL | LABORATORY | | + + + + + + | RDW-SD | 44.2 | 37 - 53 fl | [facility] | | | | | | LABORATORY | | + + + + + + | Platelet | 235 | 150 - 400 K/uL | [facility] | | | Count | | | LABORATORY | | + + + + + + | MPV | 11.8Comment: Testing | fl | [facility] | | | | performed at [facility];[address] | | LABORATORY | | | | [address];[place] | | | | | | [address] | | | | + + + + + + + + | Specimen | + + | Blood | + + + + + + + | Performing | Address | City/State/Zipcode | Phone Number | | Organization | | | | + + + + + | [facility] | [address] | [place] [address] | [phone] | + + + + + TSH (06/10/2019 5:58 AM PDT) + + + + + + | Component | Value | Ref Range | Performed | Pathologist | | | | | At | Signature | + + + + + + | TSH | 0.811Comment: Testing | 0.450 - 5.100 | [facility] | | | | performed at [facility];[address] | uIU/mL | LABORATORY | | | | [address];[place], [place] | | | | | | [address] | | | | + + + + + + + + | Specimen | + + | Blood | + + + + + + + | Performing | Address | City/State/Zipcode | Phone Number | | Organization | | | | + + + + + | [facility] | [address] | [place] [address] | [phone] | + + + + + Hemoglobin A1C (06/10/2019 5:58 AM PDT) + + + + + + | Component | Value | Ref Range | Performed | Pathologist | | | | | At | Signature | + + + + + + | Hemoglobin | 8.8 (H)Comment: HbA1c | 4.0 - 6.0 % | [facility] | | | A1c | method is certified by | | LABORATORY | | | | NGSP and traceable to | | | | | | the DCCT reference | | | | | | method.ADA guidelines | | | | | | indicate: | | | | | | Prediabetes: 5.7 - 6.4 | | | | | | Diabetes: >6.4 | | | | | | Glycemic control for | | | | | | adults with diabetes: | | | | | | <7.0Effective 10/11/2018: | | | | | | Note New Method | | | | + + + + + + | Estimated | 206 (H)Comment: | <154 mg/dL | [facility] | | | Average | Estimated Average | | LABORATORY | | | Glucose | Glucose calculated from | | | | | | hemoglobin A1c by use of | | | | | | the ADArecommended | | | | | | formula.Testing | | | | | | performed at [facility], [address] | | | | | [address], | | | | | | [place] [address] | | | | + + + + + + + + | Specimen | + + | Blood | + + + + + + + | Performing | Address | City/State/Zipcode | Phone Number | | Organization | | | | + + + + + | [facility] | [address] [facility] | [place] [address] | [phone] | + + + + + Basic Metabolic Panel (06/10/2019 5:58 AM PDT) + + + + + + | Component | Value | Ref Range | Performed | Pathologist | | | | | At | Signature | + + + + + + | Na | 142 | 135 - 145 | [facility] | | | | | mmol/L | LABORATORY | | + + + + + + | K | 5.2 (H) | 3.5 - 4.9 | [facility] | | | | | mmol/L | LABORATORY | | + + + + + + | Cl | 113 (H) | 99 - 109 mmol/L | [facility] | | | | | | LABORATORY | | + + + + + + | CO2 | 23 | 23 - 32 mmol/L | [facility] | | | | | | LABORATORY | | + + + + + + | Anion Gap | 11 | 5 - 20 mmol/L | [facility] | | | | | | LABORATORY | | + + + + + + | Glucose | 234 (H) | 65 - 99 mg/dL | [facility] | | | | | | LABORATORY | | + + + + + + | BUN | 26 (H) | 8 - 25 mg/dL | [facility] | | | | | | LABORATORY | | + + + + + + | Creatinine | 1.77 (H) | 0.70 - 1.30 | [facility] | | | | | mg/dL | LABORATORY | | + + + + + + | BUN/Creatin | 15 | | [facility] | | | ine Ratio | | | LABORATORY | | + + + + + + | Calcium | 7.8 (L) | 8.5 - 10.5 | [facility] | | | | | mg/dL | LABORATORY | | + + + + + + | Estimated | 46 (L)Comment: GFR <60: | >60 | [facility] | | | GFR | CHRONIC KIDNEY DISEASE, | mL/min/1.73m2 | LABORATORY | | | | IF FOUND OVER A 3 MONTH | | | | | | PERIOD.GFR <15: KIDNEY | | | | | | FAILURE.FOR | | | | | | AMERICANS, MULTIPLY THE | | | | | | CALCULATED GFR BY | | | | | | 1.210.This eGFR is | | | | | | calculated using the | | | | | | MDRD IDMS traceable | | | | | | equation.Testing | | | | | | performed at [facility] | | | | | | [facility];[place], [place] | | | | | | [id number] | | | | + + + + + + + + | Specimen | + + | Blood | + + + + + + + | Performing | Address | City/State/Zipcode | Phone Number | | Organization | | | | + + + + + | [facility] | [address] | [place] [address] | [phone] | + + + + + ECG 12 lead (06/10/2019 4:23 AM PDT) + + + + + + | Component | Value | Ref Range | Performed | Pathologist | | | | | At | Signature | + + + + + + | VENTRICULAR | 92 | BPM | [facility] | | | RATE EKG | | | | | + + + + + + | ATRIAL RATE | 92 | BPM | [facility] | | + + + + + + | P-R | 136 | ms | [facility] | | | INTERVAL | | | | | + + + + + + | QRS | 86 | ms | [facility] | | | DURATION | | | | | + + + + + + | Q-T | 352 | ms | [facility] | | | INTERVAL | | | | | + + + + + + | Q-T | 435 | ms | [facility] | | | INTERVAL | | | | | | (CORRECTED) | | | | | + + + + + + | P WAVE AXIS | 72 | degrees | [facility] | | + + + + + + | QRS AXIS | -9 | degrees | [facility] | | + + + + + + | T AXIS | 62 | degrees | [facility] | | + + + + + + | INTERPRETAT | Normal sinus rhythmRight | | [facility] | | | ION TEXT | bundle branch block, | | | | | | incompleteLow voltage | | | | | | limb leads onlyCannot | | | | | | rule out Septal infarct | | | | | | , age | | | | | | undeterminedAbnormal | | | | | | ECGNo previous ECGs | | | | | | availableConfirmed by | | | | | | SANA TAYLOR MD ([id number]) | | | | | | on 06/10/2019 10:42:18 AM | | | | | | | [...] | | | + +---------+ + + Lipid Panel (06/09/2019 11:38 PM PDT) + + + + + + | Component | Value | Ref Range | Performed | Pathologist | | | | | At | Signature | + + + + + + | Cholesterol | 147 | <200 mg/dL | [facility] | | | | | | LABORATORY | | + + + + + + | Triglycerid | 168 (H) | <150 mg/dL | [facility] | | | es | | | LABORATORY | | + + + + + + | HDL | 31 (L) | >40 mg/dL | [facility] | | | | | | LABORATORY | | + + + + + + | LDL, | 82Comment: Testing | <100 mg/dL | [facility] | | | Calculated | performed at [facility], [address] | | LABORATORY | | | | Terese Carrion, | | | | | | [place] [address] | | | | + + + + + + + + | Specimen | + + | Blood | + + + + + + + | Performing | Address | City/State/Zipcode | Phone Number | | Organization | | | | + + + + + | [facility] | [address] | [place] [address] | [phone] | + + + + + from Last 3 Months Insurance + +--------+ +--------+ +---------+--------+ | Payer | Benefi | Subscriber | Effect | Phone | Address | Type | | | t Plan | ID | edna | | | | | | / | | Dates | | | | | | Group | | | | | | + +--------+ +--------+ +---------+--------+ | [employer] | MODA | [id number] | | [phone] | | Medica | | MEDICAID HMO | HEALTH | | 018-Pr | 1 | | id | | | MDCD | | esent | | | | | [place] | | | | | | + +--------+ +--------+ +---------+--------+ | [employer] | MODA | [id number] | | [phone] | | Medica | | MEDICAID HMO | HEALTH | | 019-Pr | 1 | | id | | | MDCD | | esent | | | | | | [place] | | | | | | + +--------+ +--------+ +---------+--------+ + +--------+ +--------+ + + | Guarantor Name | Accoun | Relation to | Date | Phone | Billing Address | | | t Type | Patient | of | | | | | | | | | | + +--------+ +--------+ + + | Brooks Marquez | Person | Self | [birth year] | [address] | | | al/Fam | | 1990 | [phone] | [address] [place], [place] | | | lucian | | | 3 (Home) | [address] | + +--------+ +--------+ + + | Brooks Marquez | Person | Self | [birth year] | | [address] | | | al/Fam | | 1990 | [phone] | [address] [place] | | | lucian | | | 3 (Home) | [address] | + +--------+ +--------+ + + Advance Directives + + + + + | Type | Date Recorded | Patient | Explanation | | | | Typewriter Aligner | | + + + + + | Power of | | | | | Consumer Insight Manager | | | | + + + + + | Advance | 09/20/2018 | | | | Directive | 10:13 AM | | | + + + + + + + + + + | Code Status | Date | Date | Comments | | | Activated | Inactivated | | + + + + + | Full Code | 06/09/2019 | 06/10/2019 | | | | 11:16 PM | 12:53 PM | | + + + + + + + + +---+ | | | | | + + + +---+ | Full Code | 09/20/2018 | 09/20/2018 | | | | 2:00 AM | 5:02 PM | | + + + +---+
--- OUTSIDE RECORDS SUMMARY | ~2019-08-28 | XMS | Encounter Summary ---
Demographics + + + | Address | [address] | | | [place] [address] | + + + | Home Phone | | + + + | Preferred Language | Unknown | + + + | Marital Status | Single | + + + | Pentecostalism Affiliation | Unknown | + + + [...] | Gia Ramos | ECON | [address] | | | | | [place] | | | | | [address] | | + + + + + Care Team Providers + +------+ + | Care Development Disability Specialist Name | Role | Phone | [...] + + | 09/19/ | Hospital | [facility] | Tc Mora | Right ureteral | | 2018 - | Encounter | [facility] | MD Boyd [address] | stone; Acute kidney | | | | [address] | [place], [place] | injury (HCC); Flank | | 09/20/ | | [place] [address] | [address] | pain; | | 2018 | | [phone] | | Hydronephrosis, | | | | [...] | dicyclomine | | | 0 | 08/30/20 | | | (BENTYL) 20 MG | | | | 18 | | | tablet | | | | | | + + + +---------+ + + | Furosemide (LASIX | Take 40 mg by mouth | | 0 | | | | PO) | 2 times daily. | | | | | + + + +---------+ + + | [facility] | | | 0 | 10/25/20 | | | 1 MG injection | | | | 18 | | + + + +---------+ + + | | Take 1 tablet by | | 0 | | | | HYDROcodone-acetamin | mouth every 6 hours | | | | | | ophen (NORCO) | as needed for Pain. | | | | | | 7.5-325 mg per | | | | | | | tablet | | | | | | + + + +---------+ + + | insulin glargine | Inject 40 Units | | 0 | | | | (LANTUS SOLOSTAR) | under the skin | | | | | | 100 units/mL | nightly. | | | | | | injection (pen) | | | | | | + + + +---------+ + + | insulin lispro | Inject under the | | 0 | | | | (HUMALOG KWIKPEN) | skin 3 times daily | | | | | | 100 units/mL | (before meals). | | | | | | injection [...] +---------+ + + | metoprolol | Take 50 mg by [...] might be differ ent from the original. [facility] Urology Progress Note Brooks Marquez is now [...] I/O last 3 completed shifts: In: 2200 [I.V.:0] Out: 328 [Urine:325; Blood:3] PHYSICAL EXAM: General: [...] + | [facility] | [address] | [place] | [phone] | | [facility] | | [address] | | | - LABORATORY | | [...] | | | | | mmol/L | [facility] | | | | | | MEDICAL | | | | | | CENTER - | | | | | | LABORATORY | | + + + + + + | K | 5.7 (H) | 3.5 - 5.1 | [facility] | | | | | mmol/L | [facility] | | | | | | [...] not | 37 (L)Comment: | >=60 | [facility] | | | | GLOMERULAR FILTRATION | mL/min/1.73m2 | [facility] | | | [place] | RATE,ESTIMATED | | MEDICAL | | | | mL/min/1.73i8Zass than | | CENTER - | | [...] [address] | [place] | [phone] | | [facility] | | [address] | | | - LABORATORY | | [...] | | Urine | | | [facility] | | [...] [address] | [place] | [phone] | | [facility] | | [address] | | | - LABORATORY | | [...] this test. These results should be | [facility] | | integrated into the clinical context for interpretation. | [facility] | | | - LABORATORY | + + + + + + + + | Performing | Address | City/State/Zipcode | Phone Number | | Organization | | | | + + + + + | [facility] | [address] | [place], [place] | [phone] | | [facility] | | [address] | | | - LABORATORY | | [...] [address] | [place] | [phone] | | [facility] | | [address] | | | - LABORATORY | | | | + + + + + Urinalysis with Microscopic with Culture if Indicated (09/20/2018 10:26 AM PST) + + + + + + | Component | Value | Ref Range | Performed | Pathologist | | | | | At | Signature | + + + + + + | Color | Shante (A) | Light Yellow, | [facility] | | | | | Yellow, Straw | [facility] | | | | | [...] - 1.030 | [facility] | | | Gervais | | | [facility] | | [...] | | Urine | | | [facility] | | [...] + + + + + | WBC UA | 0-2 | 0 - 2 /HPF [...] + + + + + + | SQUAMOUS | 0-2 | 0 - 2 /LPF | [facility] | | | EPITHELIAL | | | [facility] | | | UA | | | MEDICAL | | | [...] URINE | Urine Culture Not | | [facility] | | | COMMENT | Indicated | | [facility] | [...] ST. | [address] | [place], [place] | [phone] | | [facility] | | [address] | | | - LABORATORY | | [...] + | [facility] | [address] | [place] | [phone] | | [facility] | | [address] | | | - LABORATORY | | [...] [address] | [place] | [phone] | | [facility] | | [address] | | | - LABORATORY | | [...] [address] | [place] | [phone] | | [facility] | | [address] | | | - LABORATORY | | [...] [address] | [place] | [phone] | | [facility] | | [address] | | | - LABORATORY | | [...] 2.07 (H) | 0.60 - 1.30 | [facility] | | | | | mg/dL | [facility] | | | | | | MEDICAL | | | | | | CENTER - | | | | | | LABORATORY | | + + + + + + | eGFR if not | 38 (L)Comment: | >=60 | [facility] | | | | GLOMERULAR FILTRATION | mL/min/1.73m2 | [facility] | | | [place] | RATE,ESTIMATED | | MEDICAL | | | | mL/min/1.47v8Atnz than | | CENTER - | | [...] + | [facility] | [address] | [place] | [phone] | | [facility] | | [address] | | | - LABORATORY | | [...] | | | Lavender | | | [facility] | | | Top Tube | [...] [address] | [place] | [phone] | | [facility] | | [address] | | | - LABORATORY | | [...] MD | | | | | | ([id number]) on 09/21/2018 | | | | | [...] [address] | [place] | [phone] | | [facility] | | [address] | | | - LABORATORY | | [...] | | | | g/dL | . [facility] | | | | [...] | nRBC | | K/uL | [facility] | [...] [address] | [place] | [phone] | | [facility] | | [address] | | | - LABORATORY | | [...] Critical Result called | mmol/L | [facility] | | | | to and read back by | | MEDICAL | | | | Eddy Cat RN | | CENTER - | | | | on 09/20/2018 at 7:05 by | | LABORATORY | | | | Bridgette Pang. | | | | + + + + + + | Cl | 112 (H) | 98 - 109 mmol/L | [facility] | | | | | | [facility] | | | | | | MEDICAL | | | | | | CENTER - | | | | | | LABORATORY | | + + + + + + | CO2 | 19 (L) | 24 - 31 mmol/L | [facility] | | | | | | [facility] | | | | | | MEDICAL | | | | | | CENTER - | | | | | | LABORATORY | | + + + + + + | Anion Gap | 5 | 3 - 16 mmol/L | [facility] | | | | | | [facility] | | | | | | MEDICAL | | | | | | CENTER - | | | | | | LABORATORY | | + + + + + + | Glucose | 190 (H) | 70 - 109 mg/dL | [facility] | | | | | | [facility] | | [...] mL/min/1.73m2 | [facility] | | | [place] | RATE,ESTIMATED | | MEDICAL | | | | mL/min/1.99s1Zsbf than | | CENTER - | | [...] [address] | [place] | [phone] | | [facility] | | [address] | | | - LABORATORY | | | | + + + + + POC Glucose (09/19/2018 11:44 PM PST) + +-------+ + + + | Component | Value | Ref Range | Performed | Pathologist | | | | | At | Signature | + +-------+ + + + | Glucose, | 106 | 70 - 109 mg/dL | [facility] [...] [address] | [place] | [phone] | | [facility] | | [address] | | | - LABORATORY | | [...] | | + +---------+ + + [place] JimChirag Khan (09/19/2018 10:11 PM PST) + + | [...] not | 42 (L)Comment: | >=60 | [facility] | | | | GLOMERULAR FILTRATION | mL/min/1.73m2 | [facility] | | | [place] | RATE,ESTIMATED | | MEDICAL | | | | mL/min/1.47e0Fzhx than | | CENTER - | | [...] ST. | [address] | [place] | [phone] | | [facility] | | [address] | | | - LABORATORY | | [...] [address] | [place] | [phone] | | [facility] | | [address] | | | - LABORATORY | | [...] [facility] | | | | | | at:[phone]. | | | | + + + [...] test was developed and | | LAB [facility] | | | | its performance | [...] + | Performed at: 01 - [facility] [address] [facility], | REFERENCE LAB | | [place], [place] [address] Hoof Trimmer: Sarabjit Love MD, Phone: | [facility] | | [phone] | | + + + + + + + + | Performing | Address | City/State/Zipcode | Phone Number | | Organization | | | | + + + + + | REFERENCE LAB | [address] | [place] [address] | [phone] | | [facility] | [address] | | | + + + + [...] ST. | [address] | [place], [place] | [phone] | | [facility] | | [address] | | | - LABORATORY | | [...] | 1,000 mg 1,000 mg, Oral, EVERY | | 18 6:23 | | | [...] | | | 1 g, Intravenous, ONCE, Tue | | 18 8:21 | | | [...] | | | | | | | 0748-5404 Use NIGHT DOSE for | | | | | | | doses scheduled: HS, 3AM, | | | | | | | Nighttime 0527-7946, | | | | | | + [...] | tablet 200 mg 200 mg, Oral, | | 18 1:34 | | | [...]
--- OUTSIDE RECORDS SUMMARY | ~2019-08-28 | XMS | Encounter Summary ---
Demographics + + + | Address | [address] | | | [place] [address] | + + + | Home Phone | | + + + | Preferred Language | Unknown | + + + | Marital Status | Single | + + + | Rastafari Affiliation | CAT | + + + | Race | White | + + + | Ethnic Group | Not or | + + + Author + + + | Author | [facility] | + + + | Organization | [facility] | + + + | Address | Unknown | + + + | Phone | Unavailable | + + + Support + + + + + | Name | Relationship | Address | Phone | + + + + + | Samantha Ramos | ECON | [address] # | | | | | [place] | | | | | [address] | | + + + + + Care Team Providers + +------+ + | Care Press Smith Helper Name | Role | Phone | [...] | Activity | [address] | [address] | | | | | Perez Mailcode: RPB[address] | [address] | | | | | [place], [place] | [place], [place] | | | | | [address] | [address] | | | | | [phone] | [phone] | | | | | | | [...] 2019 | Encounter | | MD Harris [address] | | | | | | [place], | | | | | | [place] [address] | | | | | | [phone] | | | | | | | [...] | | | | | | [place] [address] | | | | | | [phone] | | | | | | | | +--------+ + + + + | 09/13/ | Office | Hematology & | Rodney | | | 2018 | Visit | Oncology | MD Leo Lees | | | | | | [place] | | | | | | [place] [address] | | | | | | [phone] | | | | | | | | +--------+ + + + + | 01/24/ | Office | Surgery | Neri Steven MD | | | 2019 | Visit | | [address] | | | | | | [place], | | | | | | [place] [address] | | | | | | [phone] | | | | | | | [...] M.D. | | | | | | /PathologistT:10/17/06/ | | | | | | I [...] + + | Performing | Address | City/State/[facility] | Phone Number | | Organization | | | | + + + + + | [facility] | [address] | [place] [address] | | | PATHOLOGY | ZENA TODD | | | + + + + + | [facility] | [address] | [place] [address] | | | PATHOLOGY | [place] | | | + + + + + documented in this encounter Visit Diagnoses Not on filedocumented in this encounter"
--- OUTSIDE RECORDS SUMMARY | ~2019-08-28 | XMS | Encounter Summary ---
Demographics + + + | Address | [address] | | | [place] [address] | + + + | Home Phone | | + + + | Preferred Language | Unknown | + + + | Marital Status | Single | + + + | Roman Catholic Affiliation | CAT | + + + | Race | White | + + + | Ethnic Group | Not or | + + + Author + + + | Author | [facility] | + + + | Organization | [facility] | + + + | Address | Unknown | + + + | Phone | Unavailable | + + + Support + + + + + | Name | Relationship | Address | Phone | + + + + + | Samantha Ramos | ECON | [address] # | | | | | [place] | | | | | [address] | | + + + + + Care Team Providers + +------+ + | Care Emergency Medical Dispatcher Name | Role | Phone | [...] History of | MD Silke | [address] | | | | | diabetic | [address] | [address] | | | | | gastroparesi | [address] | [place] | | | | | s | [place] | Mailcode: | | | | | Procedures | [place], [place] | [address] | | | | | CONSULT TO | [address] | [place] | | | | | GI PROCEDURE | Phone: | [address] | | | | | UNIT: EGD | [phone] | [place], | | | | | | Fax: | [place] [address] | | | | | | [phone] | Phone: | | | | | | | [phone] | | | | | | | Fax: | | | | | | | [phone] | + +--------+ + + + + Reason for Visit + + + | Reason | Comments | + + + | New patient | | | consultation | | + + + Consultation (Urgent) + +--------+ + + + + | Status | Reason | Specialty | Diagnoses / | Referred By | Referred To | | | | | Procedures | Contact | Contact | + +--------+ + + + + | Authorized | | Surgery | Diagnoses | Kading, | Gs Foregut | | | | | Diabetic | Lashawn Tan, | [address] | | | | | gastroparesi | [address] | [address] | | | | | s (HCC) | [address] | Mailcode: | | | | | Procedures | [facility] | [facility] | | | | | CONSULT TO | | [facility] and | | | | | SURGERY - | [place], [place] | Healing, | | | | | GENERAL | [address] | [facility] 2 | | | | | CONSULT TO | Phone: | [place], [place] | | | | | SURGERY - | [phone] | [address] | | | | | GENERAL | Fax: | Phone: | | | | | | [phone] | [phone] | | | | | | | Fax: | | | | | | | [phone] | + +--------+ + + + + Encounter Details +--------+---------+ + + + | Date | Type | Department | Care Team | Description | +--------+---------+ + + + | 07/27/ | Office | Digestive Health | Alison Holley, | History of diabetic | | 2019 | Visit | [facility] at [address] | MD [address] | gastroparesis | | | | [address] | Ave [place], [place] | (Primary Dx) | | | | Mailcode: Center | [address] | | | | | for Health and | [phone] | | | | | [facility], [facility] 2 | | | | | | [place], [place] | | | | | | [address] | | | | | | [phone] | | | +--------+---------+ + + + [...] might be different fr om the original. [facility] Department of [facility] [...] was mildly elevated but no evidence of IN. V/Q was neg f or PE. Functional [...] Vitals reviewed. Labs/Cultures/Pathology: HBA1c 9.8% Imaging/Diagnostic Studies: LA GASTRIC EMPTYING STUDY 07/25/19: - No report - Severe gastroparesis seen LA GASTRIC EMPTYING STUDY Order: [id number] Status: Final result Visible to patient: No (Not Released) Details Reading Physician Reading Date Result Priority Emmanuel Mohamud MD 08/27/2015 Routine Component 3yr ago LA GASTRIC EMPTYING EXAM: Gastric emptying study on [...] 2, and 4 hours respectively (Ref: Cooper G, et all. Am J Gastroent 2000, 95:1456-62) [...] t he above plan. Silke Flores MD [facility] General Surgery Pager #[phone] STAFF: A resident assisted with documenting this [...] | 2018 | Encounter | | MD [address] | | | | | | [place], | | | | | | [place] [address] | | | | | | [phone] | | | | | | | | +--------+ + + + + | 09/03/ | Appointment | Procedural Care Unit | | | | 2018 | | | | | +--------+ + + + + | 09/03/ | Appointment | Gastroenterology | Greg Mathis | | | 2018 | | | MD Harris [address] | | | | | | [place], | | | | | | [place] [address] | | | | | | [phone] | | | | | | | | +--------+ + + + + | 09/13/ | Office | Hematology & | Rodney | | | 2018 | Visit | Oncology | MD Nabeel [address] | | | | | | [place], | | | | | | [place] [address] | | | | | | [phone] | | | | | | | | +--------+ + + + + | 01/24/ | Office | Surgery | Neri Steven MD | | | 2019 | Visit | | [address] | | | | | | [place], | | | | | | [place] [address] | | | | | | [phone] | | | | | | | | +--------+ + + + + documented as of this encounter Visit Diagnoses + + | Diagnosis | + + | History of diabetic gastroparesis - Primary Personal history of other endocrine, | | metabolic, and immunity disorders | + + documented in this encounter
--- OUTSIDE RECORDS SUMMARY | ~2019-08-28 | XMS | Encounter Summary ---
Demographics + + + | Address | [address] | | | [place] [address] | + + + | Home Phone | | + + + | Preferred Language | Unknown | + + + | Marital Status | Single | + + + | Jehovah'S Witness Affiliation | CAT | + + + | Race | White | + + + | Ethnic Group | Not or | + + + Author + + + | Author | [facility] | + + + | Organization | [facility] | + + + | Address | Unknown | + + + | Phone | Unavailable | + + + Support + + + + + | Name | Relationship | Address | Phone | + + + + + | Samantha Ramos | ECON | [address] | | | | | [place] | | | | | [address] | | + + + + + Care Team Providers + +------+ + | Care Trader Fixed Income Name | Role | Phone | + +------+ + PCP | Unavailable | + +------+ + Encounter Details +--------+ + + + + | Date | Type | Department | Care Team | Description | +--------+ + + + + | 08/27/ | Office | [facility] | Clinic, Pediatric | Progress Note | | 2005 | Visit-Trans | INSIDE POLISHER | Endocrinology | | | | cribed [...] as of this encounter Progress Notes Interface, Party Demonstrator In - 10/18/2005 10:01 PM PST [id number] MARQUEZ RAYMOND BR[facility] Date: 08/27/2005 Clinic: Pediatric Endocrinology Problem List: 1. Type 1 diabetes, diagnosed in April 2002. 2. Recurrent admissions due to poor compliance. 3. Hb A1c above target range at 10.1%. 4. Current insulin dose, Lantus 85 units at breakfast. 5. NovoLog (10) with meals at a carbohydrate insulin may show of 1 to 10, with a correction factor of 1 unit for every 50 if the blood sugar is above 200. Identifying Data: Brooks is a 15-1/2-year-old boy with type 1 diabetes who comes for followup for his diabetes to our clinic today. Interval History: I last saw Brooks in November 2004. Since then mother has not returned to clinic as scheduled because of problems with insurance; however, she has now changed insurance and has come for a followup visit today. Brooks has a history of very poor compliance, and in fact, prior to my seeing him first, he had had several hospitalizations, apparently related to him not giving himself insulin. When I last saw him in November 2004, his Hb A1c was 11.1%, it is now 10.1% which does represent some improvement. One of the major issues with Brooks has been encouraging him to take all of his prescribed insulin doses. Mother did tell me last time in November 2004 that he was taking all insulin; however, she now tells me that Brooks was not taking his insulin at school at lunch. Recently, Brooks has changed ( ) in that he is living with his father in the school week, his father lives in [place], and apparently the school is better and that has resulted in him moving to live with his father during that period. The other advantage of Brooks living with his father during this time is his school is near enough to his father's house, so Brooks is coming home and apparently now is receiving his lunchtime insulin shot. Brooks himself has been well with no major complaints. He does appear relatively unmotivated about his diabetes, and not particularly willing to talk about it. He did bring a meter to clinic today but had not recorded any numbers by hand. Looking through his meter, his average blood sugar for the last 2 weeks has been 260, consistent with elevated Hb A1c. He is not testing his numbers 4 times a day, number of tests vary from 0 to 3. There is no consistent pattern to his numbers apart from the fact that he does seem to have high numbers more towards the later part of the day. He also has some low numbers in his meter, the lowest I saw was 57. Diet: Brooks is on a cykgzamcdhoz-qg-vbdpdqn ratio. He has had dietary education about this as has his mother, and mother thinks that father and his current partner also understands about carbohydrate counting. However, when I interrogated Brooks little about carbohydrate counting, it seemed apparent to me that he did not understand it. Past Medical History: Unchanged from previously. Review of Systems: Otherwise negative. Full review of systems was done including ( ) 10 systems. Social History: As stated above. Brooks is now living with his father and his new partner during the weekdays and mother at the weekend. He also told me today he has a girlfriend. Physical Examination: General: Brooks looks well. He has grown well, his height is 177.5 cm which is on the 70th percentile, and his weight is 79.7 kg which is on the 90th percentile. He is tracking these positions nicely. Vital Signs: Blood pressure is 129/68 and pulse is 64. Neck: Supple with no thyromegaly. He had no rash. There is no anemia, cyanosis, clubbing, jaundice, or lymphadenopathy. Cardiovascular: Chest clear. Regular rate and rhythm. No murmurs noted. Abdomen: Soft and nontender with no masses or organomegaly. Neurologic: Power,tone, and coordination grossly normal. Injection sites: Brooks is only giving his insulin into his abdomen. He does have some lipohypertrophy and lumpiness in his abdomen, and I encouraged him to move from these sites. Assessment: Brooks is a 14-year and 74-xqfsg-xub boy with type 1 diabetes, who has poor control although it is somewhat improved from previously. He is relatively noncompliant with his diabetes. I have made the following recommendations: 1. I have asked the family to review carbohydrate counting with our grain elevator operator today. 2. I have recommended to Brooks that he rotate injection sites away from the lumpy sites on his abdomen. 3. I have increased his carbohydrate insulin ratio at meal to 1 unit for every 10 g of carbohydrate consumed. 4. I have recommended that next time Brooks attends clinic, his biological father and his new partner also attend clinic as they are assuming care for him during the week. 5. Followup should be in 4 months' time. Ashanti Roque M.D. Securities Lending Trader Pediatric Endocrinology / [id number] / [id number] / [id number] / [id number] cc: Neri Mojica [address] [place] [address]. Electronically signed by Ashanti Roque 09-10-2005 04:52:54 PM documented i n this encounter Plan of Treatment +--------+ + + + + | Date | Type | Specialty | Care Team | Description | +--------+ + + + + | 09/03/ | Hospital | | Greg Mathis | | | 2019 | Encounter | | MD Leo Iglesisa | | | | | | [place], | | | | | | [place] [address] | | | | | | [phone] | | | | | | | [...] | | | | | | [place] [address] | | | | | | [phone] | | | | | | | | +--------+ + + + + | 09/13/ | Office | Hematology & | Rodney, | | | 2019 | Visit | Oncology | MD Nabeel [address] | | | | | | [place], | | | | | | [place] [address] | | | | | | [phone] | | | | | | | | +--------+ + + + + | 01/24/ | Office | Surgery | Neri Steven MD | | | 2019 | Visit | | [address] | | | | | | [place] | | | | | | [place] [address] | | | | | | [phone] | | | | | | | | +--------+ + + + + documented as of this encounter Visit Diagnoses Not on filedocumented in this encounter"
--- OUTSIDE RECORDS SUMMARY | ~2019-08-28 | XMS | Encounter Summary ---
Demographics + + + | Address | [address] | | | [place] [address] | + + + | Home Phone | | + + + | Preferred Language | Unknown | + + + | Marital Status | Single | + + + | Advent Affiliation | Unknown | + + + | Race | Unknown | + + + | Ethnic Group | Unknown | + + + Author + + + | Author | [facility] | | | and [place] | + + + | Organization | [facility] | | | and [place] | + + + | Address | Unknown | + + + | Phone | Unavailable | + + + Support + + + + + | Name | Relationship | Address | Phone | + + + + + | Gia Ramos | ECON | [address] | | | | | [place] | | | | | [address] | | + + + + + Care Team Providers + +------+ + | Care Joinery Factory Worker Name | Role | Phone | + +------+ + | Erich Yates | PCP | | + +------+ + Reason for Visit +---------+ + | Reason | Comments | +---------+ + | Post Op | Cystoscopy with stent removal for ureteral stone | +---------+ + Encounter Details +--------+---------+ + + + | Date | Type | Department | Care Team | Description | +--------+---------+ + + + | 09/29/ | Office | [facility] | Tc Mora | Nephrolithiasis | | 2019 | Visit | [address] | MD Boyd [address] | (Primary Dx); | | | | [place], [place] | [place], [place] | Hyperkalemia; Stage | | | | [address] | [address] | 3 chronic kidney | | | | [phone] | | disease (HCC) | +--------+---------+ + + + Social History [...] + + + | Blood Pressure | 130/82 | 09/29/2018 9:28 AM | | | | | PST | | + + + + + | Pulse | 110 | 09/29/2018 9:28 AM | | | | | PST | | + + + + + | Temperature | - | - | | + + + + + | Respiratory Rate | 20 | 09/29/2018 9:28 AM | | | | | PST | | + + + + + | Oxygen Saturation | - | - | | + + + + + | Inhaled Oxygen | - | - | | | Concentration | | | | + + + + + | Weight | 68 kg (149 lb 14.6 | 09/29/2018 9:28 AM | | | | oz) | PST | | + + + + + | Height | 188 cm (6' 2") | 09/29/2018 9:28 AM | | | | | PST | | + + + + + | Body Mass Index | 19.25 | 09/29/2018 9:28 AM | | | | | PST [...] encounter Progress Notes Tc Mora MD - 09/29/2018 9:30 AM PSTFormatting of this note might be differ ent from the original. Chief Complaint Patient presents with Post Op Cystoscopy with stent removal for ureteral stone HPI Brooks Marquez is a 27 y.o. male patient of VIKI Anand here today for a Post Op Cys toscopy with stent removal for ureteral stone. Consent form signed & time out form completed Status post ureteroscopy laser lithotripsy and stent. Postoperatively the patient developed hyperkalemia and after treatment of the stone and tulio nting his kidney function did not improve. Hospitalist consult was made to have the patient 's hyperkalemia and chronic kidney disease treated however the patient left AMA. He presents today for stent removal Cystoscopy Preprocedure timeout was performed. The patient's genitals were then prepped and draped us ual fashion. 10 mL's of viscous lidocaine was instilled per urethra. The scope was then in troduced into the urethra. The anterior urethra was grossly normal. The posterior urethra w as grossly normal. Upon entering the bladder cooley cystoscopy was performed. The right urete ral stent was visualized and using a pair of graspers was removed. The stent was then inspe cted and found to be intact. The patient tolerated the procedure well. Assessment Brooks was seen today for post op. Diagnoses and all orders for this visit: Nephrolithiasis Hyperkalemia Stage 3 chronic kidney disease (HCC) Plan Highly encourage the patient to go follow up his primary care provider. Patient refused fu rther lab testing as he does not want to stay in the hospital. We discussed that given his high potassium levels he is at risk for significant cardiac disease. It also appears that k idney function is getting worse. Again told the patient after the clinic visit today to daisy e his primary care provider a call and schedule a follow-up appointment as soon as possible regarding his potassium levels as well as his kidney function. I discussed with the patient again that these conditions are life threatening. Patient will follow-up as needed Past Medical History Past Medical History: Diagnosis Date Arthritis Bowel dysfunction Diabetes (HCC) Dizziness Heart palpitations Hypertension Kidney stone Onychomycosis Retinopathy Stress headaches Past Surgical History Past Surgical History: Procedure Laterality Date ELBOW SURGERY Right URETEROSCOPY Right 09/19/2018 Procedure: CYSTOSCOPY W/ URETEROSCOPY W/ LASER LITHOTRIPSY WITH STENT PLACEMENT; Surgeon: Tc Mora MD; Location: [facility] OR Family History: Family History Problem Relation Age of Onset Stroke Mother Thyroid disease Mother Heart disease Mother Hypertension Father Bipolar disorder Brother Heart disease Other Grandfather Hypertension Other Grandfather Colon cancer Other Grandfather Hypertension Other Congenital Heart Disease Other Stroke Other Other (see comment) Other Breast cancer gene BRCA mutation Diabetes Other Kidney disease Other Thyroid disease Other Bipolar disorder Other Prostate cancer Maternal Grandfather Social History: Social History Social History Marital status: Single Spouse name: N/A Number of children: N/A Years of education: N/A Social History Main Topics Smoking status: Current Every Day Smoker Types: Cigarettes Smokeless tobacco: Never Used Alcohol use No Drug use: Yes Types: Marijuana Sexual activity: Yes Partners: Female control/ protection: Condom Other Topics Concern None Social History Narrative None Allergies Allergen Reactions Codeine Nausea And Vomiting Reaction: Projectile vomit Medications: Current Outpatient Prescriptions: Furosemide (LASIX PO), Take 1 tablet by mouth 2 times daily., Disp: , Rfl: HYDROcodone-acetaminophen (NORCO) 7.5-325 mg per tablet, Take 1 tablet by mouth every 6 hours as needed for Pain., Disp: , Rfl: insulin glargine (LANTUS SOLOSTAR) 100 units/mL injection (pen), Inject 40 Units under the skin nightly., Disp: , Rfl: insulin lispro (HUMALOG KWIKPEN) 100 units/mL injection (pen), Inject under the skin 3 times daily (before meals)., Disp: , Rfl: lisinopril (PRINIVIL, ZESTRIL) 10 mg tablet, Take 1 tablet by mouth 2 times daily., Di sp: , Rfl: metoprolol tartrate (LOPRESSOR) 50 mg tablet, Take 50 mg by mouth 2 times daily., Disp : , Rfl: ondansetron (ZOFRAN ODT) 8 mg disintegrating tablet, Take 8 mg by mouth every 8 hours as needed for Nausea., Disp: , Rfl: phytonadione (PHYTONADIONE) 100 MCG TABS, Take 100 mcg by mouth 2 times daily., Disp: , Rfl: raNITIdine (ZANTAC) 150 mg tablet, Take 1 tablet by mouth 2 times daily., Disp: , Rfl: ROS Objective BP 130/82 | Pulse 110 | Resp 20 | Ht 1.88 m (6' 2") | Wt 68 kg (149 lb 14.6 oz) | BMI 19.25 kg/m Data: REVIEW OF SYSTEMS: [] Marked All Negative Constitutional Symptoms: [] Fever [] Chills [] Headache [x] Change in appetite [x] Change in weight [x] Change in energy [] Other: Neurological: [] Tremors [] Dizzy Spells [] Numbness/Tingling [] Seizures [] Other: Endocrine: [] Excessive thirst [] Too hot [] Too cold [] Tired/Sluggish Gastrointestinal: [x] Abdominal pain [x] Nausea/Vomiting [x] Indigestion/heartburn [] Change in s tool size [] Change in stool shape [] Change in stool color [] Pain with swallow ing [] Other: Cardiovascular: [] Chest Pain [] Rapid heart rate [x] High blood pressure [] Other: Integumentary: [] Skin rash [] Boils [] Persistent itch [] Other: Musculoskeletal: [] Neck Pain [x] Joint swelling/pain [] Back pain [] Bone pain [] Other: Respiratory: [] Wheezing [] Frequent cough [] Shortness of breath [] Other: Hematologic/Lymphatic: [] Swollen glands [] Blood clotting issues [] Prior blood transfusions []Other: Psychologic: Are you generally satisfied with your life? no Do you feel severely depressed? no Have you considered suicide? no Habits: Do you smoke? yes Results for orders placed or performed during the hospital encounter of 09/19/18 Basic Metabolic Panel Result Value Ref Range [...] 8.3 - 10.5 mg/dL BUN/Creatinine Ratio 15.0 Basic Metabolic Panel Result Value Ref Range [...] RBC 3.28 (L) 4.30 - 5.70 M/uL Hemoglobin 9.7 (L) 13.5 - 18.0 g/dL Hematocrit 30.7 (L) 40.0 - 51.0 % MCV [...] 0.5 0.0 - 1.0 % % Immature Granulocytes 0.3 0.0 - 0.4 % Absolute Neutrophils 11.18 (H) 1.80 - 8.50 K/uL Absolute Lymphocytes 0.99 0.60 - 3.20 K/uL Absolute Monocytes 0.25 0.00 - 1.00 K/uL Absolute Eosinophils 0.01 0.00 - 0.40 K/uL Absolute Basophils 0.06 0.00 - 0.10 K/uL Absolute Immature Granulocytes 0.04 (H) 0.00 - 0.03 K/uL % nRBC 0 0 - 2 per 100 WBC's Absolute nRBC 0.00 0.00 - 0.01 K/uL Basic Metabolic Panel Result Value Ref Range Na 135 (L) 136 - 149 mmol/L K 6.7 (HH) 3.5 - 5.1 mmol/L Cl 108 98 - 109 mmol/L CO2 17 (L) 24 - 31 mmol/L Anion Gap 10 3 - 16 mmol/L Glucose 213 (H) 70 - 109 mg/dL BUN 40 (H) 7 - 18 mg/dL Creatinine 2.07 (H) 0.60 - 1.30 mg/dL eGFR if not 38 (L) >=60 mL/min/1.73m2 Ca 8.7 8.3 - 10.5 mg/dL BUN/Creatinine Ratio 19.3 Urinalysis with Microscopic with Culture if Indicated Result Value Ref Range Color Shante (A) Light Yellow, Yellow, Straw Clarity Cloudy (A) Clear pH, Urine 6.0 5.0 - 8.0 Specific [place] 1.012 1.001 - 1.030 Protein, Urine 100 mg/dL (A) Negative Blood, Urine Moderate (A) Negative Glucose, Urine 50 mg/dL (A) Negative Ketones, Urine Negative Negative Bilirubin, Urine Negative Negative Nitrite, Urine Negative Negative Leukocyte Esterase, Urine Negative Negative Urobilinogen, Urine Negative 0.2 mg/dL, 1.0 mg/dL, Negative WBC UA 0-2 0 - 2 /HPF RBC UA >100 (A) 0 - 2 /HPF SQUAMOUS EPITHELIAL UA 0-2 0 - 2 /LPF BACTERIA UA 1+ (A) Negative /HPF URINE COMMENT Urine Culture Not Indicated Extra Lavender Top Tube Result Value Ref Range Extra Lavender Top Tube Done Basic Metabolic Panel Result Value Ref Range Na 135 (L) 136 - 149 mmol/L K 5.7 (H) 3.5 - 5.1 mmol/L Cl 109 98 - 109 mmol/L CO2 17 (L) 24 - 31 mmol/L Anion Gap 9 3 - 16 mmol/L Glucose 253 (H) 70 - 109 mg/dL BUN 42 (H) 7 - 18 mg/dL Creatinine 2.16 (H) 0.60 - 1.30 mg/dL eGFR if not 37 (L) >=60 mL/min/1.73m2 Ca 8.5 8.3 - 10.5 mg/dL BUN/Creatinine Ratio 19.4 Sodium, Urine, Random Result Value Ref Range Sodium, Urine Random 84 27 - 287 mmol/L Creatinine, Urine, Random Result Value Ref Range Creatinine, Urine, Random 59 mg/dL Eosinophil Smear, Urine Result Value Ref Range Eosinophil, Urine None seen None seen POC Glucose Result Value Ref Range Glucose, POC 108 70 - 109 mg/dL POC Glucose Result Value Ref Range Glucose, POC 106 70 - 109 mg/dL POC Glucose Result Value Ref Range Glucose, POC 106 70 - 109 mg/dL POC Glucose Result Value Ref Range Glucose, POC 168 (H) 70 - 109 mg/dL POC Glucose Result Value Ref Range Glucose, POC 327 (H) 70 - 109 mg/dL POC Glucose Result Value Ref Range Glucose, POC 307 (H) 70 - 109 mg/dL POC Glucose Result Value Ref Range Glucose, POC 282 (H) 70 - 109 mg/dL POC Glucose Result Value Ref Range Glucose, POC 270 (H) 70 - 109 mg/dL POC Glucose Result Value Ref Range Glucose, POC 277 (H) 70 - 109 mg/dL ECG 12 lead Result Value Ref Range VENTRICULAR RATE EKG 103 BPM ATRIAL RATE 103 BPM P-R INTERVAL 168 ms QRS DURATION 88 ms Q-T INTERVAL 348 ms Q-T INTERVAL (CORRECTED) 455 ms P WAVE AXIS 61 degrees QRS AXIS -4 degrees T AXIS 63 degrees INTERPRETATION TEXT Sinus tachycardia Otherwise normal ECG No previous ECGs available Confirmed by CRISTINE HUDDLESTON MD [id number]) on 09/21/2018 6:31:13 AM Lab Results Component Value Date CREA 2.16 (H) 09/20/2018 VIKI Anand's notes were reviewed in clinic today. No Follow-up on file.. This document was generated in part using voice recognition software. Frequent wrong word or sound-alike substitutions may have occurred due to the inherent limitations of the voice recognition software. Although I have attempted to edit the content, I have not thoroughly proofread this note, and lining feller errors are very likely to occur. CC: VIKI Anand documented in this encounter Plan of Treatment Not on filedocumented as of this encounter Visit Diagnoses + + | Diagnosis | + + | Nephrolithiasis - Primary Calculus of kidney | + + | Hyperkalemia Hyperpotassemia | + + | Stage 3 chronic kidney disease (HCC) | + + documented in this encounter
--- OUTSIDE RECORDS SUMMARY | ~2019-08-28 | XMS | Encounter Summary ---
Demographics + + + | Address | [address] | | | [place] [address] | + + + | Home Phone | | + + + | Preferred Language | Unknown | + + + | Marital Status | Single | + + + | Protestant Affiliation | CAT | + + + [...] Samantha Ramos | ECON | [address] | | | | | [place], [place] | | | | | [address] | | + + + + + Care Team Providers + +------+ + | Care Coating Mixer Name | Role | Phone | + [...] as of this encounter Progress Notes Interface, Fund Manager In - 04/25/2005 2:09 AM PDT [id number] 12/11/2004 12/11/2004 [id number] NAHOMY Durbin [facility] [address] [place], [place] [id number] or December 11, 2004 Neri Mojica MD [address], [place] [address] RE: BROOKS MARQUEZ II MR #: [id number] Dear Dr. Mojica: I reviewed Brooks in Endocrine Clinic today. This is his second visit our clinic, having established care here in September. To recap, he was diagnosed with type 1 diabetes in April 2002 and initially received his education in [facility]. He has been followed by yourself until [...] at this present time, although I did delinquency counselor him that this would be optimal [...] months' time. Yours sincerely, Ashanti Roque M.D. Liquor Maker, Pediatric Endocrinology / [id number] / [id number] / [id number] / documented i n this encounter Plan of Treatment +--------+ + + + + | Date | Type | Specialty | Care Team | Description | +--------+ + + + + | 09/03/ | Hospital | | Greg Mathis | | | 2019 | Encounter | | MD [address] | | | | | | [place], | | | | | | [place] [address] | | | | | | [phone] | | | | | | | [...] | | | | | | [place] [address] | | | | | | [phone] | | | | | | | | +--------+ + + + + | 09/13/ | Office | Hematology & | Rodney, | | | 2018 | Visit | Oncology | MD [address] | | | | | | [place], | | | | | | [place] [address] | | | | | | [phone] | | | | | | | | +--------+ + + + + | 01/24/ | Office | Surgery | Neri Steven MD | | | 2019 | Visit | | [address] | | | | | | [place] | | | | | | [place] [address] | | | | | | [phone] | | | | | | | | +--------+ + + + + documented as of this encounter Visit Diagnoses Not on filedocumented in this encounter"
--- OUTSIDE RECORDS SUMMARY | ~2019-08-28 | XMS | Encounter Summary ---
Demographics + + + | Address | [address] | | | [place] [address] | + + + | Home Phone [...] + + + | Author | [facility] | | | and [place] | + + + | Organization | [facility] | | | and [place] | + + + | Address | Unknown | + + + | Phone | Unavailable | + + + Support + + + + + | Name | Relationship | Address | Phone | + + + + + | Gia Ramos | ECON | [address] | | | | | [place] | | | | | [address] | | + + + + + Care Team Providers + +------+ + | Care Flotation Tender Helper Name | Role | Phone | + +------+ + | Erich Yates | PCP | | + +------+ + Encounter Details +--------+ + + + + | Date | Type | Department | Care Team | Description | +--------+ + + + + | 01/11/ | Orders Only | [facility] | Winston Whitman MD | | | 2019 | | NEPRHOLOGY [place] | [address] | | | | | [address] | [address] [place], [place] | | | | | [address] [place], [place] | [address] | | | | | [address] | | | | | | [phone] | | | +--------+ + + + [...] +--------+ + + + | EXTERNAL LAB: CBC | Routin | 01/11/2019 | | Results for this | | | e | 12:00 AM | | procedure are in the | | | | PDT | | results section. | + +--------+ + + + | URINALYSIS WITH | Routin | 01/11/2019 | | Results for this | | MICROSCOPIC IF | e | 12:00 AM | | procedure are in the | | INDICATED | | PDT | | results section. | + +--------+ + + + | PROTEIN/CREATININE | Routin | 01/11/2019 | | Results for this | | RATIO, URINE | e | 12:00 AM | | procedure are in the | | | | PDT | | results section. | + +--------+ + + + | URIC ACID | Routin | 01/11/2019 | | Results for this | | | e | 12:00 AM | | procedure are in the | | | | PDT | | results section. | + +--------+ + + + | BASIC METABOLIC | Routin | 01/11/2019 | | Results for this | | PANEL | e | 12:00 AM | | procedure are in the | | | | PDT | | results section. | + +--------+ + + + documented in this encounter Results Protein/Creatinine Ratio, Urine (01/11/2019 12:00 AM PDT) + + + + + + | Component | Value | Ref Range | Performed | Pathologist | | | | | At | Signature | + + + + + + | Protein/Cre | 5966.8 (A) | 0 - 150 | EXTERNAL | | | at Ratio | | | LAB | | + + + + + + + + | Specimen | + + | Urine specimen | | (specimen) | + + + + + | Narrative | Performed At | + + + | PROTEIN, URINE - 399 - 0.0 - 50.0 CREATININE, URINE - 66.87 | EXTERNAL LAB | + + + + +---------+ + + | Performing | Address | City/State/Zipcode | Phone Number | | Organization | | | | + +---------+ + + | EXTERNAL LAB | | | | + +---------+ + + Urinalysis with Microscopic if Indicated (01/11/2019 12:00 AM PDT) + + + + + + | Component | Value | Ref Range | Performed | Pathologist | | | | | At | Signature | + + + + + + | Color | Yellow | | EXTERNAL | | | | | | LAB | | + + + + + + | Clarity | Slightly Cloudy | | EXTERNAL | | | | | | LAB | | + + + + + + | Spec Grav, | 1.011 | 1.005 - 1.030 | EXTERNAL | | | Fluid | | | LAB | | + + + + + + | Leukocyte | Comment: trace | | EXTERNAL | | | Esterase, | | | LAB | | | Urine | | | | | + + + + + + | Nitrite, | Negative | | EXTERNAL | | | Urine | | | LAB | | + + + + + + | Urobilinoge | Normal | | EXTERNAL | | | n, Urine | | | LAB | | + + + + + + | Total | Comment: >300 | | EXTERNAL | | | Protein | | | LAB | | + + + + + + | pH, Urine | 5 | 5 - 9 | EXTERNAL | | | | | | LAB | | + + + + + + | Blood, | Comment: small | | EXTERNAL | | | Urine | | | LAB | | + + + + + + | Ketones | neg | | EXTERNAL | | | | | | LAB | | + + + + + + | Bilirubin, | Negative | | EXTERNAL | | | Urine | | | LAB | | + + + + + + | Glucose, | Comment: small | | EXTERNAL | | | Urine | | | LAB | | + [...] + +---------+ + + External Lab: CBC (01/11/2019 12:00 AM PDT) + + + + + + | Component | Value | Ref Range | Performed | Pathologist | | | | | At | Signature | + + + + + + | WBC | 7.3 | 4.5 - 11.0 10 | EXTERNAL | | | | | | LAB | | + + + + + + | RED CELL | 3.22 (A) | 4.3 - 5.7 10 | EXTERNAL | | | COUNT | | | LAB | | + + + + + + | Hgb | 9.7 (A) | 13.5 - 18.0 | EXTERNAL | | | | | g/dL | LAB | | + + + + + + | Hematocrit, | 29.6 (A) | 41 - 50 % | EXTERNAL | | | POC | | | LAB | | + + + + + + | MCV | 92.1 | 81 - 99 fL | EXTERNAL | | | | | | LAB | | + + + + + + | MCH | 30 | 27 - 33 pg | EXTERNAL | | | | | | LAB | | + + + + + + | MCHC | 33 | 30 - 36 g/dL | EXTERNAL | | | | | | LAB | | + + + + + + | Platelet | 255 | 140 - 440 K/ L | EXTERNAL | | | Count | | | LAB | | | Plasma | | | | | + + + + + + | RDW-CV | 17.0 (A) | 10.5 - 15.0 % | EXTERNAL | | | | | | LAB | | + + + + + + | MPV | | fL | EXTERNAL | | | | | | LAB | | + + + + + + | Differentia | | | EXTERNAL | | | l Type | | | LAB | | + + + + + + | % Segmented | 49.5 | 39 - 80 % | EXTERNAL | | | | | | LAB | | | Neutrophils | | | | | + + + + + + | % | 36.6 | 24 - 44 % | EXTERNAL | | | Lymphocytes | | | LAB | | + + + + + + | % Monocytes | 7.8 | 0 - 12 % | EXTERNAL | | | | | | LAB | | + + + + + + | % | 3.5 | 0 - 6 % | EXTERNAL | | | Eosinophils | | | LAB | | + + + + + + | % Basophils | 2.6 (A) | 0 - 2 % | EXTERNAL | | | | | | LAB | | + + + + + + | Absolute | | / L | EXTERNAL | | | Segmented | | | LAB | | | Neutrophils | | | | | + + + + + + | Absolute | | / L | EXTERNAL | | | Lymphocytes | | | LAB | | + + + + + + | Absolute | | / L | EXTERNAL | | | Monocytes | | | LAB | | + + + + + + | Absolute | | / L | EXTERNAL | | | Eosinophils | | | LAB | | + + + + + + | Absolute | | / L | EXTERNAL | | | Basophils | | | LAB | | + + + + + + + + | Specimen | + + | Blood specimen | | (specimen) | + + + +---------+ + + | Performing | Address | City/State/Zipcode | Phone Number | | Organization | | | | + +---------+ + + | EXTERNAL LAB | | | | + +---------+ + + Uric Acid (01/11/2019 12:00 AM PDT) + +-------+ + + + | Component | Value | Ref Range | Performed | Pathologist | | | | | At | Signature | + +-------+ + + + | Uric Acid | 7.3 | 4.4 - 7.6 | EXTERNAL | | | | | [...] + +---------+ + + Basic Metabolic Panel (01/11/2019 12:00 AM PDT) + + + + + + | Component | Value | Ref Range | Performed | Pathologist | | | | | At | Signature | + + + + + + | Glucose, | 182 (A) | 70 - 100 mg/dL | EXTERNAL | | | Fasting | | | LAB | | + + + + + + | BUN | 21 | 6 - 23 mg/dL | EXTERNAL | | | | | | LAB | | + + + + + + | Creatinine | 1.50 (A) | 0.60 - 1.35 | EXTERNAL | | | | | mg/dL | LAB | | + + + + + + | BUN/Creatin | 14.0 | 6.0 - 28.6 | EXTERNAL | | | ine Ratio | | | LAB | | + + + + + + | Calcium | 8.1 (A) | 8.5 - 10.3 | EXTERNAL | | | | | mg/dL | LAB | | + + + + + + | Na | 138 | 132 - 143 | EXTERNAL | | | | | mmol/L | LAB | | + + + + + + | K | 5.5 (A) | 3.6 - 5.1 | EXTERNAL | | | | | mmol/L | LAB | | + + + + + + | Cl | 115 (A) | 95 - 112 mmol/L | EXTERNAL | | | | | | LAB | | + + + + + + | CO2 | 18 (A) | 19 - 31 mmol/L | EXTERNAL | | | | | | LAB | | + + + + + + | Anion Gap | 10.5 | 7 - 21 mmol/L | EXTERNAL | | | | | | LAB | | + + + + + + | Estimated | 55 | mg/dL | EXTERNAL | | | GFR | | | LAB | | + [...]
--- OUTSIDE RECORDS SUMMARY | ~2019-08-28 | XMS | Encounter Summary ---
Demographics + + + | Address | [address] | | | [place] [address] | + + + | Home Phone | | + + + | Preferred Language | Unknown | + + + | Marital Status | Single | + + + | Scientology Affiliation | CAT | + + + [...] Samantha Ramos | ECON | [address] | | | | | [address], [place] | | | | | [address] | | + + + + + Care Team Providers + +------+ + | Care Gm/Svp [employer] Publisher Business Name | Role | Phone | + +------+ + PCP | Unavailable | + +------+ + Encounter Details +--------+ + + + + | Date | Type | Department | Care Team | Description | +--------+ + + + + | 09/30/ | Office | | Note, Outpatient | Progress Note | | 2005 | Visit-Trans | | Clinic | | | | cribed | | [...] as of this encounter Progress Notes Interface, Bounty Hunter In - 04/25/2005 12:43 AM [facility] [id number] [facility] Date: 09/30/2004 Clinic: [facility] Subjective: Alin is an almost 14-year-old young boy with type 1 diabetes. The family is new to clinic, here to establish care for his ongoing diabetes management. Alin is usually followed by his primary care doctor, Dr. Mojica in [place]. The family does have several questions and are quite interactive in today's visit. Previous Diabetes Education: Alin was diagnosed with type 1 diabetes on April 2002, at that time, he was admitted to the hospital in [place], [place] where the family did receive initial diabetes education during that hospitalization. Alin has had several episodes of diabetic ketoacidosis since diagnosis, his last one being on August 04, 2004. Home Blood Glucose Monitoring: Alin is testing his own blood sugars. He is using 2 different types of meters. He is using [employer] Breeze as well as an [employer] Contour meter for testing. They do not keep written records of blood sugars; however, both meters were brought to today's visit, and we did download the meters to retrieve the history. Looking in to the history, the day and time are wrong in the meter making it difficult to know exactly when these were performed. However, looking through the numbers, they are all ranging from 200s with several high numbers in there and several actually reading "high" on the meter. We did change the date and time in the meter so that this should now be accurate to look through if needing to find out what previous blood sugars have been. We did encourage the family at today's visit that if we are to try to make adjustments in Alin's insulin doses that we do need to keep very accurate records. We did provide the family with 2 record books at today's visit so that they can keep track of blood sugar records on a daily basis. Medications: Alin is on a Lantus Insulin routine where he receives Lantus at breakfast, and he is on a carbohydrate to insulin ratio for his meals. He is receiving 1 unit of Humalog per 10 g of carbohydrate for his meals. He was receiving his Lantus at bedtime; however, about 3 to 4 times per week he was not getting that Lantus dose, therefore they opted to change that to breakfast at his last hospitalization in hopes that he is reducing the amount of times that he is missing his Lantus Insulin. Alin now states that he is only missing his Lantus about one time per week. It is unclear exactly how often he is actually administering his Humalog Insulin with the food that he is eating. We did suggest at today's visit that when Alin is getting his Lantus dose that mother is there and observing this actually happening to ensure that he does not omit any of his Lantus doses, also recommending that at dinnertime since mother is available at dinner that she always observe the dinnertime routine as well to ensure that he is dosing his insulin correctly and that he is actually getting his insulin at that time. Insulin is not adjusted at today's visit; however, we would like the family to be in contact with Dr. Roque next Tuesday to review what the blood sugars have been, and then we can make some adjustments at that time. We would also like the family to maintain weekly contact with the Diabetes Team here for continuing adjustments in his insulin until we get them closer to his target range. Alin does draw up his insulin and also uses a Humalog disposable pen for dialing up his fast-acting insulin. I did have him do a demonstration using his pen, he has not been doing a prime shot prior to dialing up this dose, I therefore encouraged him to dial up 2 units prior to dialing up his dose to ensure that he is getting his full dose of insulin. I also encouraged him to flush the insulin out of the syringe several times when he is drawing up his Lantus to ensure that there are no air bubbles in the syringe, again this will help with the accuracy of the dosing. Injection sites have primarily consisted of Alin's abdomen. We did recommend that he use a broader section of his abdomen as well as use his arms for giving injections as well. They do dispose off their syringes in a biohazard container. Again we are strongly encouraging Alin's mother to observe the morning time routine as well as the dinnertime routine. Hypoglycemia Management: Alin states that he has episodes of hypoglycemia may be 1 to 2 times every 2 weeks, and he states that his symptoms are that he feels shaky. There have been sometimes when he would check his blood sugar and he was feeling symptomatic in the low 100s, other times he is down in to the 50s and 60s. He is treating with 8 ounces of juice. We did encourage Alin that at any time he was feeling symptomatic to always check his blood sugar before treatment to ensure that he indeed is having a low blood sugar at that time. I also encouraged him to recheck his blood sugar within 15 minutes after treatment to ensure that the treatment did bring his blood sugar back up to above 80. Alin states that he does have identification; however, he is not wearing it at today's visit. The family does have the glucagon emergency kit, one is at home. They have one at school and then when he is involved in football, there is one that is brought to the football practice. Meal Planning: The group practice pediatrician Shannon Early did meet with the family at today's visit to reinforce the need to be accurate with carbohydrate counting and to asses Alin's ability to actually do the carbohydrate counting. Again mother should be available at breakfast and dinner to help with this to ensure that the carbohydrates are being counted accurately. Her dictation will follow. Exercise: Alin is not currently involved in PE at school; however, he does swim at the local pool on occasion and he will swim for approximately an hour to hour and half. He does state that he will have an apple prior to the swimming. Alin was also involved in football. In the fall, incident response engineer, Shannon Early, did meet with them also and discussed carbohydrate replacement before activity. They were provided with a carb replacement handout and some guidelines for them. Sick Day Management: I reviewed sick day management with the family and how and when to check for urine ketones. They do have keto sticks that are kept in the vial. I reviewed that these are good for 6 months once opening. Also provided the family with some sick day guidelines and recommended that the family check for ketones at the first sign of illness as well as with elevated blood sugars that begin greater than 300 for 2 routine tests. Also asked that the family be in touch with the diabetes team here if he is ever ill and is positive for ketones. School: Alin is in the 9th grade. He does carry his meter and diabetes supplies with him. He also rides the bus on occasion to and from school, asked that he carry treatment for low blood sugar on person and especially since the bus ride is fairly long. 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 I discussed the importance of being prepared with diabetes and getting behind the wheel of the car. I did provide him with a handout at today's visit in regards to this also. I emphasized the need to carry treatment for low blood sugar and his meter and extra snacks with him in the car. Assessment: Alin is an almost 14-year-old young man with type 1 diabetes diagnosed in April 2002. This is the family's first visit here to the [facility]. The family is interactive at this visit. We would highly suggest that the family maintain rather frequent phone contact with the Diabetes Team here so that we can help make some adjustments in his insulin to get his blood sugars closer to 80 to 180 target range. We do have some recommendations for the family today 1. We would like the family to keep a log of blood sugars and log books are provided to the family. We would like them to start calling Dr. Roque next Tuesday and thereafter on a weekly basis. 2. The mother is to observe all the Lantus doses going in at breakfast as well as the dinnertime routine. 3. Alin is to check his blood sugar. If he is feeling symptomatic for low blood sugar, he is to treat his blood sugars at 80 or below with 8 ounces of juice and to always recheck within 15 minutes after treatment to ensure that he has fully recovered to above 80. 4. We would like to see the family back in clinic within 2 months' time and again we will be expecting them to call next Tuesday, and family is provided with contact phone numbers to the Diabetes Team. Estefany Hathaway R.N. ANA / CONTRERAS [id number] / [id number] / [id number] / [id number] CDRCP Electronically signed by Estefany Hathaway 10-05-2004 02:25:46 PM documented i n this encounter Plan [...] | | | | | | [place] [address] | | | | | | [phone] | | | | | | | | +--------+ + + + + | 09/03/ | Appointment | Procedural Care Unit | | | | 2018 | | | | | +--------+ + + + + | 09/03/ | Appointment | Gastroenterology | Greg Mathis | | | 2018 | | | MD [address] | | | | | | [place] | | | | | | [place] [address] | | | | | | [phone] | | | | | | | | +--------+ + + + + | 09/13/ | Office | Hematology & | Rodney, | | | 2018 | Visit | Oncology | MD Nabeel [address] | | | | | | [place], | | | | | | [place] [address] | | | | | | [phone] | | | | | | | | +--------+ + + + + | 01/24/ | Office | Surgery | Neri Steven MD | | | 2019 | Visit | | [address] | | | | | | [place], | | | | | | [place] [address] | | | | | | [phone] | | | | | | | | +--------+ + + + + documented as of this encounter Visit Diagnoses Not on filedocumented in this encounter
--- OUTSIDE RECORDS SUMMARY | ~2019-08-28 | XMS | Encounter Summary ---
Demographics + + + | Address | [address] | | | [place] [address] | + + + | Home Phone | | + + + | Preferred Language | Unknown | + + + | Marital Status | Single | + + + | Baptism Affiliation | CAT | + + + [...] Samantha Ramos | ECON | [address] | | | | | [place] | | | | | [address] | | + + + + + Care Team Providers + +------+ + | Care Chemical Educator Name | Role | Phone | + +------+ + | Jaison Pascual DO | PCP | | + +------+ + Encounter Details +--------+------+ + + + | Date | Type | Department | Care Team | Description | +--------+------+ + + + | 09/15/ | Lab | Laboratory, | | Type 1 diabetes, | | 2014 | | Specimen Collection | | uncontrolled, with | | | | at [facility] [address] | | renal manifestation | | | | [address] | | ([facility]) | | | | [place], | | | | | | [place] [address] | | | | | | [phone] | | | +--------+------+ + + + Social History + +-------+ [...] | | | | | | [place] [address] | | | | | | [phone] | | | | | | | [...] | | | | | | [place] [address] | | | | | | [phone] | | | | | | | | +--------+ + + + + | 09/13/ | Office | Hematology & | Rodney, | | | 2018 | Visit | Oncology | MD Nabeel [address] | | | | | | [place], | | | | | | [place] [address] | | | | | | [phone] | | | | | | | | +--------+ + + + + | 01/24/ | Office | Surgery | Neri Steven MD | | | 2019 | Visit | | [address] | | | | | | [place], | | | | | | [place] [address] | | | | | | [phone] | | | | | | | | +--------+ + + + + documented as of this encounter Procedures + +--------+ + + + | Procedure Name | Priori | Date/Time | Associated Diagnosis | Comments | | | ty | | | | + +--------+ + + + | BASIC METABOLIC SET | Routin | 09/15/2015 | Type 1 diabetes, | Results for this | | (NA, K, CL, TCO2, | e | 10:37 AM | uncontrolled, with | procedure are in the | | BUN, CR, GLU, CA) | | PST | renal manifestation | results section. | | | | | (HCC) | | + +--------+ + + + documented in this encounter Results BASIC METABOLIC SET (NA, K, CL, TCO2, BUN, CR, GLU, CA) (09/15/2015 10:37 AM PST) + +---------+ + + + | Component | Value | Ref Range | Performed | Pathologist | | | | | At | Signature | + +---------+ + + + | GLUCOSE, | 153 (H) | 60 - 99 mg/dL | [facility] | | | PLASMA | | | LABORATORY | | | (LAB) | | | SERVICES, | | | | | | CORE | | + +---------+ + + + | BUN, PLASMA | 13 | 6 - 20 mg/dL | [facility] | | | (LAB) | | | LABORATORY | | | | | | SERVICES, | | | | | | CORE | | + +---------+ + + + | CREATININE | 0.79 | 0.70 - 1.30 | [facility] | | | PLASMA | | mg/dL | LABORATORY | | | (LAB) | | | SERVICES, | | | | | | CORE | | + +---------+ + + + | EGFR | >60 | >60 mL/min | [facility] | | | - | | | LABORATORY | | | GREEK | | | SERVICES, | | | | | | CORE | | + +---------+ + + + | EGFR NON | >60 | >60 mL/min | [facility] | | | -SCOTT | | | LABORATORY | | | RICAN | | | SERVICES, | | | | | | CORE | | + +---------+ + + + | SODIUM, | 141 | 136 - 145 | [facility] | | | PLASMA | | mmol/L | LABORATORY | | | (LAB) | | | SERVICES, | | | | | | CORE | | + +---------+ + + + | POTASSIUM, | 3.8 | 3.4 - 5.0 | [facility] | | | PLASMA | | mmol/L | LABORATORY | | | (LAB) | | | SERVICES, | | | | | | CORE | | + +---------+ + + + | CHLORIDE, | 105 | 97 - 108 mmol/L | [facility] | | | PLASMA | | | LABORATORY | | | (LAB) | | | SERVICES, | | | | | | CORE | | + +---------+ + + + | TOTAL CO2, | 31 | 21 - 32 mmol/L | [facility] | | | PLASMA | | | LABORATORY | | | (LAB) | | | SERVICES, | | | | | | CORE | | + +---------+ + + + | CALCIUM, | 8.8 | 8.6 - 10.2 | [facility] | | | PLASMA | | mg/dL | LABORATORY | | | (LAB) | | | SERVICES, | | | | | | CORE | | + +---------+ + + + | ANION GAP | 5 | mmol/L | [facility] | | | | | | LABORATORY | | | | | | SERVICES, | | | | | | CORE | | + +---------+ + + + | POTASSIUM | No [...] the MDRD equation recommended by the | [facility] | | National Kidney Disease Education Program. [...] + + + + + | [facility] | [address] | [place] [address] | | | YOUSIF, ZOEY | [place] | | | + + + + + documented in this encounter Visit Diagnoses + + | Diagnosis | + + | Type 1 diabetes, uncontrolled, with renal manifestation (HCC) Type I (juvenile type) | | diabetes mellitus with renal manifestations, uncontrolled | + + documented in this encounter"
--- OUTSIDE RECORDS SUMMARY | ~2019-08-28 | XMS | Encounter Summary ---
Demographics + + + | Address | [address] | | | [place] [address] | + + + | Home Phone | | + + + | Preferred Language | Unknown | + + + | Marital Status | Single | + + + | Uatsdin Affiliation | CAT | + + + [...] Samantha Ramos | ECON | [address] | | | | | [place] | | | | | [address] | | + + + + + Care Team Providers + +------+ + | Care Tube And Manifold Builder Name | Role | Phone | + [...] | +--------+ + + + + | 07/24/ | Abstract | Digestive Health | Lashawn Joy, | Medical Records | | 2019 | | Center at [facility] [address] | [address] | Review | | | | [address] | [address] | | | | | Mailcode: Center | [place], [place] | | | | | [facility] and | [address] | | | | | [facility] [address] | [phone] | | | | | [place], [place] | | | | | | [address] | | | | | | [phone] | | | +--------+ + + + [...] 2019 | Encounter | | MD Harris [address] | | | | | | [place] | | | | | | [place] [address] | | | | | | [phone] | | | | | | | [...] | | | | | | [place] [address] | | | | | | [phone] | | | | | | | | +--------+ + + + + | 09/13/ | Office | Hematology & | Rodney | | | 2018 | Visit | Oncology | MD Nabeel [address] | | | | | | [place] | | | | | | [place] [address] | | | | | | [phone] | | | | | | | | +--------+ + + + + | 01/24/ | Office | Surgery | Neri Steven MD | | | 2020 | Visit | | [address] | | | | | | [place], | | | | | | [place] [address] | | | | | | [phone] | | | | | | | | +--------+ + + + + documented as of this encounter Visit Diagnoses Not on filedocumented in this encounter"
--- OUTSIDE RECORDS SUMMARY | ~2019-08-28 | XMS | Encounter Summary ---
Demographics + + + | Address | [address] | | | [place] [address] | + + + | Home Phone | | + + + | Preferred Language | Unknown | + + + | Marital Status | Single | + + + | Yazdanism Affiliation | Unknown | + + + | Race | Unknown | + + + | Ethnic Group | Unknown | + + + Author + + + | Author | [facility] | | | and [place] | + + + | Organization | [facility] | | | and [place] | + + + | Address | Unknown | + + + | Phone | Unavailable | + + + Support + + + + + | Name | Relationship | Address | Phone | + + + + + | Gia Ramos | ECON | [address] | | | | | [place] | | | | | [address] | | + + + + + Care Team Providers + +------+ + | Care Ripsawyer Name | Role | Phone | + +------+ + | Erich Yates | PCP | | + +------+ + Encounter Details +--------+ + + + + | Date | Type | Department | Care Team | Description | +--------+ + + + + | 04/18/ | Orders Only | [facility] | Provider, | Chronic kidney | | 2019 | | SYSTEM GENERIC OP | MD [address] | disease, stage III | | | | CONVERSION [address] | [address] | (moderate) ([facility]); | | | | [address], [place] | [place] [address] | Proteinuria; Type 1 | | | | [address] | | diabetes mellitus | | | | [phone] | | with diabetic | | | | | | nephropathy ([facility]); | | | | | | Chronic kidney | | | | | | disease, stage III | | | | | | (moderate) ([facility]) | +--------+ + + + + Social [...] of this encounter Plan of Treatment + +------+--------+ + + | Name | Type | Priori | Associated Diagnoses | Order Schedule | | | | ty | | | + +------+--------+ + + | Urinalysis with | Lab | Routin | Chronic kidney | Expected: | | Microscopic if | | e | disease, stage III | 03/07/2019, Expires: | | Indicated | | | (moderate) ([facility]) | 01/15/2021 | | | | | Proteinuria Type 1 | | | | | | diabetes mellitus | | | | | | with diabetic | | | | | | nephropathy ([facility]) | | | | | | Chronic kidney | | | | | | disease, stage III | | | | | | (moderate) ([facility]) | | + +------+--------+ + + | Protein/Creatinine | Lab | Routin | Chronic kidney | Expected: | | Ratio, Urine | | e | disease, stage III | 03/07/2019, Expires: | | | | | (moderate) ([facility]) | 01/15/2021 | | | | | Proteinuria Type 1 | | | | | | diabetes mellitus | | | | | | with diabetic | | | | | | nephropathy ([facility]) | | | | | | Chronic kidney | | | | | | disease, stage III | | | | | | (moderate) ([facility]) | | + +------+--------+ + + documented as of this encounter Visit Diagnoses + + | Diagnosis | + + | Chronic kidney disease, stage III (moderate) (HCC) Chronic kidney disease, Stage III | | (moderate) | + + | Proteinuria | + + | Type 1 diabetes mellitus with diabetic nephropathy ([facility]) Type I (juvenile type) | | diabetes mellitus with renal manifestations, not stated as uncontrolled | + + documented in this encounter"
--- OUTSIDE RECORDS SUMMARY | ~2019-08-28 | XMS | Encounter Summary ---
Demographics + + + | Address | [address] | | | [place] [address] | + + + | Home Phone [...] Author + + + | Author | [facility] | + + + | Organization | [facility] | + + + | Address | Unknown | + + + | Phone | Unavailable | + + + Support + + + + + | Name | Relationship | Address | Phone | + + + + + | Samantha Ramos | ECON | [address] | | | | | [place] | | | | | [address] | | + + + + + Care Team Providers + +------+ + | Care Information Engineer Name | Role | Phone | + +------+ + | Erich Yates PA-C | PCP | | + +------+ + Reason for Visit + + + | Reason | Comments | + + + | Lab Results | multiple lab results | + + + Encounter Details +--------+ + + + + | Date | Type | Department | Care Team | Description | +--------+ + + + + | 07/23/ | Documentati | [facility] | Lashawn Joy, | Lab Results | | 2019 | on | [facility] [address] | PA-C [address] | (multiple lab | | | | [address] | [address] | results) | | | | Mailcode: Center | [place], [place] | | | | | for Health and | [address] | | | | | [facility] 2 | [phone] | | | | | [place], [place] | | | | | | [address] | | | | | | [phone] | | | +--------+ + + + [...] 2019 | Encounter | | MD Harris [address] | | | | | | [place], | | | | | | [place] [address] | | | | | | [phone] | | | | | | | [...] | | | | | | [place] [address] | | | | | | [phone] | | | | | | | | +--------+ + + + + | 09/13/ | Office | Hematology & | Rodney, | | | 2019 | Visit | Oncology | MD Leo Lees | | | | | | [place] | | | | | | [place] [address] | | | | | | [phone] | | | | | | | | +--------+ + + + + | 01/24/ | Office | Surgery | Neri Steven MD | | | 2020 | Visit | | [address] | | | | | | [place], | | | | | | [place] [address] | | | | | | [phone] | | | | | | | | +--------+ + + + + documented as of this encounter Procedures + +--------+ + + + | Procedure Name | Priori | Date/Time | Associated Diagnosis | Comments | | | ty | | | | + +--------+ + + + | GIARDIA SCREEN EIA, | Routin | 07/19/2019 | Chronic diarrhea | Results for this | | STOOL | e | | | procedure are in the | | | | | | results section. | + +--------+ + + + | OVA AND PARASITE | Routin | 07/19/2019 | Chronic diarrhea | Results for this | | EXAM | e | | | procedure are in the | | | | | | results section. | + +--------+ + + + | CALPROTECTIN, FECAL | Routin | 07/18/2019 | Chronic diarrhea | Results for this | | | e | | | procedure are in the | | | | | | results section. | + +--------+ + + + | PANCREATIC ELASTASE, | Routin | 07/18/2019 | Chronic diarrhea | Results for this | | STOOL | e | | | procedure are in the | | | | | | results section. | + +--------+ + + + documented in this encounter Results OVA AND PARASITE EXAM (07/19/2019) + + [...] [address] | [place], [place] | [phone] | | [place] | | | | + + + + + GIARDIA SCREEN EIA, STOOL (07/19/2019) + + [...] - | [address] | [place], [place] | [phone] | | [place] | | | | [...] [address] | [place], [place] | [phone] | | [place] | | | | [...] | [facility] - | [address] | [place], [place] | [phone] | | [place] | | | | + + + + + documented in this encounter Visit Diagnoses + + | Diagnosis | + + | Chronic diarrhea Diarrhea | + + documented in this encounter"
--- OUTSIDE RECORDS SUMMARY | ~2019-08-28 | XMS | Encounter Summary ---
Demographics + + + | Address | [address] | | | [place] [address] | + + + | Home Phone | | + + + | Preferred Language | Unknown | + + + | Marital Status | Single | + + + | Uatsdin Affiliation | Unknown | + + + | Race | Unknown | + + + | Ethnic Group | Unknown | + + + Author + + + | Author | [facility] | | | and [place] | + + + | Organization | [facility] | | | and [place] | + + + | Address | Unknown | + + + | Phone | Unavailable | + + + Support + + + + + | Name | Relationship | Address | Phone | + + + + + | Gia Ramos | ECON | [address] | | | | | [place] | | | | | [address] | | + + + + + Care Team Providers + +------+ + | Care Coil Binder Name | Role | Phone | + +------+ + | Erich Yates | PCP | | + +------+ + Encounter Details +--------+ + + + + | Date | Type | Department | Care Team | Description | +--------+ + + + + | 03/16/ | Orders Only | [facility] | Conversion | | | 2018 | | [place]Y [place] | Transaction, | | | | | [address] | Provider Unknown | | | | | [address] [place], [place] | | | | | | [address] | (Fax) | | | | | [phone] | | | +--------+ + + + [...]
--- OUTSIDE RECORDS SUMMARY | ~2019-08-28 | XMS | Encounter Summary ---
Demographics + + + | Address | [address] | | | [place] [address] | + + + | Home Phone | | + + + | Preferred Language | Unknown | + + + | Marital Status | Single | + + + | Mu-Ism Affiliation | CAT | + + + [...] Samantha Ramos | ECON | [address] | | | | | [place] | | | | | [address] | | + + + + + Care Team Providers + +------+ + | Care Information Systems Technician Name | Role | Phone | [...] | | | | Mailcode: Center | [place], [place] | | | | | for Health and | [address] | | | | | [facility] 2 | [phone] | | | | | [place], [place] | | | | | | [address] | | | | | | [phone] | | | +--------+ + + + [...] 2019 | Encounter | | MD Harris [address] | | | | | | [place], | | | | | | [place] [address] | | | | | | [phone] | | | | | | | [...] | | | | | | [place] [address] | | | | | | [phone] | | | | | | | | +--------+ + + + + | 09/13/ | Office | Hematology & | Rodney, | | | 2019 | Visit | Oncology | MD Leo Lees | | | | | | [place] | | | | | | [place] [address] | | | | | | [phone] | | | | | | | | +--------+ + + + + | 01/24/ | Office | Surgery | Neri Steven MD | | | 2020 | Visit | | [address] | | | | | | [place], | | | | | | [place] [address] | | | | | | [phone] | | | | | | | [...] [address] | [place], [place] | [phone] | | [place] | | | | [...] - | [address] | [place], [place] | [phone] | | [place] | | | | [...] [address] | [place], [place] | [phone] | | [place] | | | | [...] [address] | [place], [place] | [phone] | | [place] | | | | + + + + + documented in this encounter Visit Diagnoses + + | Diagnosis | + + | Chronic diarrhea Diarrhea | + + documented in this encounter"
--- OUTSIDE RECORDS SUMMARY | ~2019-08-28 | XMS | Encounter Summary ---
Demographics + + + | Address | [address] | | | [place] [address] | + + + | Home Phone | | + + + | Preferred Language | Unknown | + + + | Marital Status | Single | + + + | Rastafarian Affiliation | CAT | + + + [...] | Samantha Ramos | ECON | [address] | | | | | [place], [place] | | | | | [address] | | + + + + + Care Team Providers + +------+ + | Care Automobile Salesman Name | Role | Phone | + [...] as of this encounter Progress Notes Interface, Crib Attendant In - 04/25/2005 12:43 AM PDT [id number] 09/30/2004 09/30/2003 [id number] NAHOMY [facility] [address] [place], [place] [id number] or September 30, 2004 Neri Mojica M.D. [address] [place] [address] RE: BROOKS MARQUEZ II MR #: [id number] Dear Dr. Mojica: Diagnoses: 1. Type 1 diabetes. 2. Currently poor control. 3. Poor compliance. I reviewed Brooks Ogden in our Pediatric Endocrinology Clinic for the first time today. Alin is a 13-year 90-bqmcf-hgu boy who was diagnosed with type 1 diabetes in April 2002, presenting with weight loss, polyuria, and polydipsia. Since Brooks was diagnosed, he has been mainly under your care for his diabetes, although he has been seen once at [facility]. His control has generally been very poor, and he has had 3 episodes of diabetic ketoacidosis, the last being in July 2004. At this episode, he was admitted to [facility] with moderate DKA, initial bicarbonate of [...] his new step-father and brother in the [facility]. Though there is strong family history on [...] Normal sensation. Summary: Alin is a 13-year 37-[id number] boy with very poor diabetes control, secondary [...] or concerns. Yours sincerely, Ashanti Roque M.D. Health And Physical Education Teacher of Pediatric Endocrinology / [id number] / [id number] / [id number] / documented i n this encounter Plan of Treatment +--------+ + + + + | Date | Type | Specialty | Care Team | Description | +--------+ + + + + | 09/03/ | Hospital | | Greg Mathis | | | 2019 | Encounter | | MD Harris [address] | | | | | | [place], | | | | | | [place] [address] | | | | | | [phone] | | | | | | | [...] | | | | | | [place] [address] | | | | | | [phone] | | | | | | | | +--------+ + + + + | 09/13/ | Office | Hematology & | Rodney, | | | 2019 | Visit | Oncology | MD Leo Lees | | | | | | [place] | | | | | | [place] [address] | | | | | | [phone] | | | | | | | | +--------+ + + + + | 01/24/ | Office | Surgery | Neri Steven MD | | | 2020 | Visit | | [address] | | | | | | [place], | | | | | | [place] [address] | | | | | | [phone] | | | | | | | | +--------+ + + + + documented as of this encounter Visit Diagnoses Not on filedocumented in this encounter"
--- OUTSIDE RECORDS SUMMARY | ~2019-08-28 | XMS | Encounter Summary ---
Demographics + + + | Address | [address] | | | [place] [address] | + + + | Home Phone | | + + + | Preferred Language | Unknown | + + + | Marital Status | Single | + + + | Shinto Affiliation | Unknown | + + + | Race | Unknown | + + + | Ethnic Group | Unknown | + + + Author + + + | Author | [facility] | | | and [place] | + + + | Organization | [facility] | | | and [place] | + + + | Address | Unknown | + + + | Phone | Unavailable | + + + Support + + + + + | Name | Relationship | Address | Phone | + + + + + | Gia Ramos | ECON | [address] | | | | | [place] | | | | | [address] | | + + + + + Care Team Providers + +------+ + | Care Test Eng Name | Role | Phone | + +------+ + | Erich Yates | PCP | | + +------+ + Encounter Details +--------+ + + + + | Date | Type | Department | Care Team | Description | +--------+ + + + + | 03/16/ | Orders Only | [facility] | Winston Whitman MD | | | 2018 | | NEPHROLOGY [place] | [address] | | | | | [address] | [address] [place], [place] | | | | | [address] [place], [place] | [address] | | | | | [address] | | | | | | [phone] | | | +--------+ + + + [...] + + + | RED CELL | 3.72 (A) | 4.3 - 5.7 10 | EXTERNAL | | | COUNT | | | LAB | | + + + + + + | Hgb | 11.5 (A) | 13.5 - 18.0 [...] | | | LAB | | | [facility] | | | | | + + [...]
--- OUTSIDE RECORDS SUMMARY | ~2019-08-28 | XMS | Encounter Summary ---
Demographics + + + | Address | [address] | | | [place] [address] | + + + | Home Phone | | + + + | Preferred Language | Unknown | + + + | Marital Status | Single | + + + | Amish Affiliation | CAT | + + + | Race | White | + + + | Ethnic Group | Not or | + + + Author + + + | Author | [facility] | + + + | Organization | [facility] | + + + | Address | Unknown | + + + | Phone | Unavailable | + + + Support + + + + + | Name | Relationship | Address | Phone | + + + + + | Samantha Ramos | ECON | [address] # | | | | | [place] | | | | | [address] | | + + + + + Care Team Providers + +------+ + | Care Regulatory Submissions Associate Name | Role | Phone | + [...] | | 2019 | | Center at [facility] [address] | [address] | Review | | | | [address] | [place], [place] | | | | | Mailcode: Center | [address] | | | | | for Health and | [phone] | | | | | [facility] 2 | | | | | | [place], [place] | | | | | | [address] | | | | | | [phone] | | | +--------+ + + + [...] 2019 | Encounter | | MD Harris [address] | | | | | | [place] | | | | | | [place] [address] | | | | | | [phone] | | | | | | | [...] | | | | | | [place] [address] | | | | | | [phone] | | | | | | | | +--------+ + + + + | 09/13/ | Office | Hematology & | Rodney | | | 2018 | Visit | Oncology | MD Nabeel [address] | | | | | | [place] | | | | | | [place] [address] | | | | | | [phone] | | | | | | | | +--------+ + + + + | 01/24/ | Office | Surgery | Neri Steven MD | | | 2020 | Visit | | [address] | | | | | | [place], | | | | | | [place] [address] | | | | | | [phone] | | | | | | | | +--------+ + + + + documented as of this encounter Visit Diagnoses Not on filedocumented in this encounter"
--- OUTSIDE RECORDS SUMMARY | ~2019-08-28 | XMS | Encounter Summary ---
Demographics + + + | Address | [address] | | | [place] [address] | + + + | Home Phone | | + + + | Preferred Language | Unknown | + + + | Marital Status | Single | + + + | Samaritan Affiliation | Unknown | + + + | Race | Unknown | + + + | Ethnic Group | Unknown | + + + Author + + + | Author | [facility] | | | and [place] | + + + | Organization | [facility] | | | and [place] | + + + | Address | Unknown | + + + | Phone | Unavailable | + + + Support + + + + + | Name | Relationship | Address | Phone | + + + + + | Gia Ramos | ECON | [address] | | | | | [place] | | | | | [address] | | + + + + + Care Team Providers + +------+ + | Care Prototype Technician Name | Role | Phone | + +------+ + | Erich Yates | PCP | | + +------+ + Encounter Details +--------+ + + + + | Date | Type | Department | Care Team | Description | +--------+ + + + + | 06/20/ | Orders Only | [facility] | Winston Whitman MD | CKD (chronic kidney | | 2019 | | NEPHROLOGY [place] | [address] | disease), stage III | | | | [address] | [address] [place], [place] | ([facility]) (Primary Dx) | | | | [address] [place], [place] | [address] | | | | | [address] | | | | | | [phone] | | | +--------+ + + + [...]
--- OUTSIDE RECORDS SUMMARY | ~2019-08-28 | XMS | Encounter Summary ---
Demographics + + + | Address | [address] | | | [place] [address] | + + + | Home Phone | | + + + | Preferred Language | Unknown | + + + | Marital Status | Single | + + + | Catholic Affiliation | CAT | + + [...] Samantha Ramos | ECON | [address] # | | | | | [place] | | | | | [address] | | + + + + + Care Team Providers + +------+ + | Care Construction Ironworker Helper Name | Role | Phone | [...] Pharmacy | | | | | | [address] | | | | | | [place], | | | | | | [place] [address] | | | | | | [phone] | | | +--------+ + + + [...] | | | | | | [place] [address] | | | | | | [phone] | | | | | | | [...] | | | | | | [place] [address] | | | | | | [phone] | | | | | | | | +--------+ + + + + | 09/13/ | Office | Hematology & | Rodney, | | | 2018 | Visit | Oncology | MD Nabeel [address] | | | | | | [place] | | | | | | [place] [address] | | | | | | [phone] | | | | | | | | +--------+ + + + + | 01/24/ | Office | Surgery | Neri Steven MD | | | 2019 | Visit | | [address] | | | | | | [place], | | | | | | [place] [address] | | | | | | [phone] | | | | | | | | +--------+ + + + + documented as of this encounter Visit Diagnoses Not on filedocumented in this encounter"
--- OUTSIDE RECORDS SUMMARY | ~2019-08-28 | XMS | Encounter Summary ---
Demographics + + + | Address | [address] | | | [place] [address] | + + + | Home Phone | | + + + | Preferred Language | Unknown | + + + | Marital Status | Single | + + + | Holiness Affiliation | CAT | + + + [...] | Samantha Ramos | ECON | [address] # | | | | | [place] | | | | | [address] | | + + + + + Care Team Providers + +------+ + | Care Business Operations Coordinator Name | Role | Phone | + +------+ + | Neri Mojica MD | PCP | | + +------+ + Encounter Details +--------+ + + + + | Date | Type | Department | Care Team | Description | +--------+ + + + + | 06/14/ | Results | Orthopaedics at | [place], | | | 2005 | Only | [facility] [address] | [facility]SP[facility] [address] | | | | | [address] | [address] | | | | | Mailcode: [address] | [place] [address] | | | | | [facility] | [phone] | | | | | [place], [place] | | | | | | [address] | | | | | | [phone] | | | +--------+ + + + [...] 2019 | Encounter | | MD Harris [address] | | | | | | [place] | | | | | | [place] [address] | | | | | | [phone] | | | | | | | [...] | | | | | | [place] [address] | | | | | | [phone] | | | | | | | | +--------+ + + + + | 09/13/ | Office | Hematology & | Rodney | | | 2019 | Visit | Oncology | MD Leo Lees | | | | | | [place] | | | | | | [place] [address] | | | | | | [phone] | | | | | | | | +--------+ + + + + | 01/24/ | Office | Surgery | Neri Steven MD | | | 2019 | Visit | | [address] | | | | | | [place], | | | | | | [place] [address] | | | | | | [phone] | | | | | | | [...]
--- OUTSIDE RECORDS SUMMARY | ~2019-08-28 | XMS | Encounter Summary ---
Demographics + + + | Address | [address] | | | [place] [address] | + + + | Home Phone | | + + + | Preferred Language | Unknown | + + + | Marital Status | Single | + + + | Muslim Affiliation | CAT | + + + | Race | White | + + + | Ethnic Group | Not or | + + + Author + + + | Author | [facility] | + + + | Organization | [facility] | + + + | Address | Unknown | + + + | Phone | Unavailable | + + + Support + + + + + | Name | Relationship | Address | Phone | + + + + + | Samantha Ramos | ECON | [address] # | | | | | [place] | | | | | [address] | | + + + + + Care Team Providers + +------+ + | Care Integrity Manager Name | Role | Phone | + +------+ + | Erich Yates PA-C | PCP | | + +------+ + Reason for Visit + + + | Reason | Comments | + + + | Evaluation of test | | | results | | + + + Encounter Details +--------+ + + + + | Date | Type | Department | Care Team | Description | +--------+ + + + + | 07/24/ | Telephone | [facility]ive [facility] | Lashawn Joy, | Evaluation of test | | 2019 | | Center at [facility] [address] | PA-C [address] | results | | | | [address] | [address] [address] | | | | | Mailcode: Center | [place], [place] | | | | | [facility] and | [address] | | | | | [facility] 2 | [phone] | | | | | [place], [place] | | | | | | [address] | | | | | | [phone] | | | +--------+ + + + [...] 2019 | Encounter | | MD Harris [address] | | | | | | [place], | | | | | | [place] [address] | | | | | | [phone] | | | | | | | [...] | | | | | | [place] [address] | | | | | | [phone] | | | | | | | | +--------+ + + + + | 09/13/ | Office | Hematology & | Rodney | | | 2019 | Visit | Oncology | MD Leo Lees | | | | | | [place] | | | | | | [place] [address] | | | | | | [phone] | | | | | | | | +--------+ + + + + | 01/24/ | Office | Surgery | Neri Steven MD | | | 2020 | Visit | | [address] | | | | | | [place], | | | | | | [place] [address] | | | | | | [phone] | | | | | | | | +--------+ + + + + documented as of this encounter Visit Diagnoses Not on filedocumented in this encounter"
--- OUTSIDE RECORDS SUMMARY | ~2019-08-28 | XMS | Encounter Summary ---
Demographics + + + | Address | [address] | | | [place] [address] | + + + | Home Phone | | + + + | Preferred Language | Unknown | + + + | Marital Status | Single | + + + | Adventism Affiliation | Unknown | + + + | Race | Unknown | + + + | Ethnic Group | Unknown | + + + Author + + + | Author | [facility] | | | and [place] | + + + | Organization | [facility] | | | and [place] | + + + | Address | Unknown | + + + | Phone | Unavailable | + + + Support + + + + + | Name | Relationship | Address | Phone | + + + + + | Gia Ramos | ECON | [address] | | | | | [place] | | | | | [address] | | + + + + + Care Team Providers + +------+ + | Care County Judge Name | Role | Phone | + +------+ + | Erich Yates | PCP | | + +------+ + Reason for Referral Evaluate & Treat (Urgent) +--------+ + + + + + | Status | Reason | Specialty | Diagnoses / | Referred By | Referred To | | | | | Procedures | Contact | Contact | +--------+ + + + + + | Closed | Specialty | Gastroenterol | Diagnoses | | [place], | | | Services | ogy | Diabetic | [facility], | Greg Bernardo MD | | | Required | | gastroparesi | [place], | [address] | | | | | s (HCC) | NEEDLE LOOM OPERATOR HELPER [address] [place] | | | | | Malnutrition | [place], [place] | [address] | | | | | , | [address] [place] | [place], [place] | | | | | unspecified | [place] | [address] | | | | | type (HCC) | [address] | Phone: | | | | | Weight loss | Phone: | [phone] | | | | | | [phone] | Fax: | | | | | | Fax: | [phone] | | | | | | [phone] | | +--------+ + + + + + Encounter Details +--------+ + + + + | Date | Type | Department | Care Team | Description | +--------+ + + + + | 02/21/ | Orders Only | [facility] | [place], | Malnutrition, | | 2019 | | GASTROENTEROLOGY | DANA Perry [address] | unspecified type | | | | [address] [place] | [place], [place] [address] | (HCC) (Primary Dx); | | | | [address] [place], [place] | [place], [place] | Diabetic | | | | [address] | [address] | gastroparesis (HCC); | | | | [phone] | | Weight loss | +--------+ + + + + Social [...] | + + +--------+ + + | Gastroenterology, | Outpatient | Routin | Diabetic | 1 Occurrences | | External - out going | Referral | e | gastroparesis (HCC) | starting 02/21/2019 | | provider | | | Malnutrition, | until 02/21/2020 | | | | | unspecified type | | | | | | ([facility]) Weight loss | | + + +--------+ + + documented as of this encounter Visit Diagnoses + + | Diagnosis | + + | Malnutrition, unspecified type ([facility]) - Primary | + + | Diabetic gastroparesis ([facility]) 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
--- OUTSIDE RECORDS SUMMARY | ~2019-08-28 | XMS | Clinical Summary ---
Demographics + + + | Address | [address] [facility] | | | [place] [address] | + + + | Home Phone | | + + + | Preferred Language | Unknown | + + + | Marital Status | Unknown | + + + | Jainism Affiliation | Unknown | + + + | Race | Unknown | + + + | Ethnic Group | Unknown | + + + Author + + + | Author | [email or web address] (Historical as of | | | 05-12-19) | + + + | Organization | [facility] (Historical as of | | | 05-12-19) [...] Team Providers + +------+ + | Care Reweaver Name | Role | Phone | + [...] | CKD (chronic kidney disease), stage III ([facility]) | 01/15/2019 | + + + | [...] | | 09/20/2018, 07/02/2015 | | | (#1) | 9 | | | + + [...] +------+-------+ + | MEDICAID | [place] | [id number] | | | [address] | | | N | | | | [place], [place] | | | [place] | | | | [address] | | | TELEVISION ANTENNA INSTALLER | | | | | + +--------+ [...] Self | [birth year] | Home: | [address] | | | al/Fam | | 1990 | [phone] [address] [place], | | | lucian | | | [address] | [place] [address] | + +--------+ +--------+ + +
--- OUTSIDE RECORDS SUMMARY | ~2019-08-28 | XMS | Encounter Summary ---
Demographics + + + | Address | [address] | | | [place] [address] | + + + | Home Phone [...] Samantha Ramos | ECON | [address] | | | | | [place] | | | | | [address] | | + + + + + Care Team Providers + +------+ + | Care Principal Mechanical Engineer Name | Role | Phone | [...] Request | | Gastroenterol | Diagnoses | Ross, | Gas Endo | | | | ogy | Diabetic | Beth Dougherty, | [address] | | | | | gastroparesi | [address] | [address] | | | | | s associated | [address] | [place] | | | | | with type 1 | [place] | Mailcode: | | | | | diabetes | [place], [place] | [address] | | | | | mellitus | [address] | [place] | | | | | ([facility]) | Phone: | [address] | | | | | Procedures | [phone] | [place], | | | | | CONSULT TO | Fax: | [place] [address] | | | | | GI PROCEDURE | [phone] | Phone: | | | | | UNIT: EGD | | [phone] | | | | | | | Fax: | | | | | | | [phone] | + +--------+ + + + + Encounter Details +--------+ + + + + | Date | Type | Department | Care Team | Description | +--------+ + + + + | 08/16/ | Applications Support Engineer | Digestive Health | Beth Mondragon, | Diabetic | | 2019 | | Center at [facility] [address] | [address] | gastroparesis | | | | [address] | [address] | associated with type | | | | Mailcode: Center | [place], [place] | 1 diabetes mellitus | | | | for [facility] and | [address] | ([facility]) (Primary Dx) | | | | [facility] 2 | [phone] | | | | | [place], [place] | | | | | | [address] | | | | | | [phone] | | | +--------+ + + + [...] 2018 | Encounter | | MD Harris [address] | | | | | | [place] | | | | | | [place] [address] | | | | | | [phone] | | | | | | | [...] | | | | | | [place] [address] | | | | | | [phone] | | | | | | | | +--------+ + + + + | 09/13/ | Office | Hematology & | Rodney, | | | 2018 | Visit | Oncology | MD Nabeel [address] | | | | | | [place], | | | | | | [place] [address] | | | | | | [phone] | | | | | | | | +--------+ + + + + | 01/24/ | Office | Surgery | Neri Steven MD | | | 2019 | Visit | | [address] | | | | | | [place], | | | | | | [place] [address] | | | | | | [phone] | | | | | | | | +--------+ + + + + documented as of this encounter Visit Diagnoses + + | Diagnosis | + + | Diabetic gastroparesis associated with type 1 diabetes mellitus (HCC) - Primary | + + documented in this encounter"
--- OUTSIDE RECORDS SUMMARY | ~2019-08-28 | XMS | Encounter Summary ---
Demographics + + + | Address | [address] | | | [place] [address] | + + + | Home Phone | | + + + | Preferred Language | Unknown | + + + | Marital Status | Single | + + + | Scientology Affiliation | Unknown | + + + | Race | Unknown | + + + | Ethnic Group | Unknown | + + + Author + + + | Author | [facility] | | | and [place] | + + + | Organization | [facility] | | | and [place] | + + + | Address | Unknown | + + + | Phone | Unavailable | + + + Support + + + + + | Name | Relationship | Address | Phone | + + + + + | Gia Ramos | ECON | [address] | | | | | [place] | | | | | [address] | | + + + + + Care Team Providers + +------+ + | Care Business Development Consultant Name | Role | Phone | + +------+ + | Erich Yates | PCP | | + +------+ + Encounter Details +--------+ + + + + | Date | Type | Department | Care Team | Description | +--------+ + + + + | 02/01/ | Abstract | [facility] | Divya, | | | 2018 | | GASTROENTEROLOGY | MD [address] | | | | | [address] [facility] | [place] Wendy. | | | | | [address] | [place] [address] | | | | | [address] | | | | | | [phone] | | | +--------+ + + + [...] | EXTERNAL LAB: CBC | Routin | 01/21/2019 | | Results for this | | | e | | | procedure are in the | | | | | | results section. | + +--------+ + + + | EXTERNAL LAB: CBC | Routin | 01/21/2019 | | Results for this | | | e | | | procedure are in the | | | | | | results section. | + +--------+ + + + | EXTERNAL LAB: EGFR | Routin | 01/21/2019 | | Results [...] + + + | BACTERIA UA | Negative | Negative /HPF | | | + + + + [...] | + +---------+ + + External Lab: BUN (01/21/2019) + +-------+ + + + | [...] - 1.03 | EXTERNAL | | | [place], | | | LAB | | | [...] eGFR, | 54 (A) | 60 - 8,999 | EXTERNAL | | | External | [...]
--- OUTSIDE RECORDS SUMMARY | ~2019-08-28 | XMS | Encounter Summary ---
Demographics + + + | Address | [address] | | | [place] [address] | + + + | Home Phone | | + + + | Preferred Language | Unknown | + + + | Marital Status | Single | + + + | Adventist Affiliation | CAT | + + + [...] | Samantha Ramos | ECON | [address] # | | | | | [place] | | | | | [address] | | + + + + + Care Team Providers + +------+ + | Care Special Population Paraprofessional Name | Role | Phone | + [...] manifestation | | | | [address] | | ([facility]) | | | | [place], | | | | | | [place] [address] | | | | | | [phone] | | | +--------+------+ + + + [...] | | | | | | [place] [address] | | | | | | [phone] | | | | | | | [...] | | | | | | [place] [address] | | | | | | [phone] | | | | | | | | +--------+ + + + + | 09/13/ | Office | Hematology & | Rodney, | | | 2018 | Visit | Oncology | MD Nabeel [address] | | | | | | [place], | | | | | | [place] [address] | | | | | | [phone] | | | | | | | | +--------+ + + + + | 01/24/ | Office | Surgery | Neri Steven MD | | | 2019 | Visit | | [address] | | | | | | [place], | | | | | | [place] [address] | | | | | | [phone] | | | | | | | [...] | | | LABORATORY | | | CYMRO | | | SERVICES, | | | [...] the MDRD equation recommended by the | [facility] | | National Kidney Disease Education Program. [...] + + + + + | [facility] | [address] | [place] [address] | | | YOUSIF, ZOEY | ZENA [...]
--- OUTSIDE RECORDS SUMMARY | ~2019-08-28 | XMS | Encounter Summary ---
Demographics + + + | Address | [address] | | | [place] [address] | + + + | Home Phone | | + + + | Preferred Language | Unknown | + + + | Marital Status | Single | + + + | Yazdanism Affiliation | CAT | + + + [...] | Samantha Ramos | ECON | [address] # | | | | | [place] | | | | | [address] | | + + + + + Care Team Providers + +------+ + | Care Tool Keeper Name | Role | Phone | + [...] Pharmacy | | | | | | [address] | | | | | | [place], | | | | | | [place] [address] | | | | | | [phone] | | | +--------+ + + + [...] | | | | | | [place] [address] | | | | | | [phone] | | | | | | | [...] | | | | | | [place] [address] | | | | | | [phone] | | | | | | | | +--------+ + + + + | 09/13/ | Office | Hematology & | Rodney, | | | 2018 | Visit | Oncology | MD Nabeel [address] | | | | | | [place] | | | | | | [place] [address] | | | | | | [phone] | | | | | | | | +--------+ + + + + | 01/24/ | Office | Surgery | Neri Steven MD | | | 2019 | Visit | | [address] | | | | | | [place], | | | | | | [place] [address] | | | | | | [phone] | | | | | | | | +--------+ + + + + documented as of this encounter Visit Diagnoses Not on filedocumented in this encounter"
--- OUTSIDE RECORDS SUMMARY | ~2019-08-28 | XMS | Encounter Summary ---
Demographics + + + | Address | [address] | | | [place] [address] | + + + | Home Phone | | + + + | Preferred Language | Unknown | + + + | Marital Status | Single | + + + | Hinduism Affiliation | CAT | + + + | Race | White | + + + | Ethnic Group | Not or | + + + Author + + + | Author | [facility] | + + + | Organization | [facility] | + + + | Address | Unknown | + + + | Phone | Unavailable | + + + Support + + + + + | Name | Relationship | Address | Phone | + + + + + | Samantha Ramos | ECON | [address] # | | | | | [place] | | | | | [address] | | + + + + + Care Team Providers + +------+ + | Care Studio Director Name | Role | Phone | [...] | | 2015 | | Center at [facility] [address] | | - General | | | | [address] [place] | | | | | | Mailcode: Center | | | | | | for Health and | | | | | | [facility] 2 | | | | | | [place], [place] | | | | | | [address] | | | | | | [phone] | | | +--------+ + + + [...] 2018 | Encounter | | MD Harris [address] | | | | | | [place], | | | | | | [place] [address] | | | | | | [phone] | | | | | | | | +--------+ + + + + | 09/03/ | Appointment | Procedural Care Unit | | | | 2018 | | | | | +--------+ + + + + | 09/03/ | Appointment | Gastroenterology | Greg Mathis | | | 2018 | | | MD Harris [address] | | | | | | [place], | | | | | | [place] [address] | | | | | | [phone] | | | | | | | | +--------+ + + + + | 09/13/ | Office | Hematology & | Rodney | | | 2018 | Visit | Oncology | MD Nabeel [address] | | | | | | [place], | | | | | | [place] [address] | | | | | | [phone] | | | | | | | | +--------+ + + + + | 01/24/ | Office | Surgery | Neri Steven MD | | | 2019 | Visit | | [address] | | | | | | [place], | | | | | | [place] [address] | | | | | | [phone] | | | | | | | | +--------+ + + + + documented as of this encounter Visit Diagnoses Not on filedocumented in this encounter"
--- OUTSIDE RECORDS SUMMARY | ~2019-08-28 | XMS | Encounter Summary ---
Demographics + + + | Address | [address] | | | [place] [address] | + + + | Home Phone [...] Author + + + | Author | [facility] | + + + | Organization | [facility] | + + + | Address | Unknown | + + + | Phone | Unavailable | + + + Support + + + + + | Name | Relationship | Address | Phone | + + + + + | Samantha Ramos | ECON | [address] # | | | | | [place] | | | | | [address] | | + + + + + Care Team Providers + +------+ + | Care Mine Equipment Design Engineer Name | Role | Phone | [...] | Diabetic | Lashawn Tan, | [facility] [address] | | | | | gastroparesi | [address] | [place] | | | | | s (HCC) | [address] [facility] | Mailcode: | | | | | Procedures | [facility] | [facility] | | | | | CONSULT TO | Rd | Health and | | | | | SURGERY - | [facility] [place] | Healing, | | | | | GENERAL | [address] | [address] | | | | | CONSULT TO | Phone: | [place], [place] | | | | | SURGERY - | [phone] | [address] | | | | | GENERAL | Fax: | Phone: | | | | | | [phone] | [phone] | | | | | | | Fax: | | | | | | | [phone] | + +--------+ + + + + [...] | | | ogy | Abdominal | [facility], | [facility] [address] | | | | | pain | Vicky N, | [address] | | | | | abdominal | CIVIL GEOTECHNICAL ENGINEER [address] | Mailcode: | | | | | pain | [place] | [facility] | | | | | | [place] | [facility] and | | | | | | [address] | Healing, | | | | | | [place], | [address] | | | | | | [place] [address] | [place], [place] | | | | | | Phone: | [address] | | | | | | [phone] | Phone: | | | | | | Fax: | [phone] | | | | | | [phone] | Fax: | | | | | | | [phone] | +--------+--------+ + + + + Encounter Details +--------+---------+ + + + | Date | Type | Department | Care Team | Description | +--------+---------+ + + + | 07/02/ | Office | Digestive Health | Lashawn Joy, | Diabetic | | 2019 | Visit | Center at [facility] [address] | PA-C [address] | gastroparesis (HCC) | | | | [address] | [address] | (Primary Dx); | | | | Mailcode: Center | [place], [place] | Chronic diarrhea | | | | [facility] and | [address] | | | | | [facility] 2 | [phone] | | | | | [place], [place] | | | | | | [address] | | | | | | [phone] | | | +--------+---------+ + + + [...] department. If you do not hear from th em within 2 weeks please contact my office. 3. I am also ordering stool testing to evaluate the cause of your diarrhea. We will call u once the orders have been submitted to [facility]. Please do not hesitate to contact my office via phone or [facility] if you have any questions. Thank you! [...] is reported. SOCIAL HISTORY: Pt lives in [place], [place] with his mother. Not working. Smokes 1/4-1/2ppd, working on cutting back. Denies EtOH. Endorses occasional marijuana use, denies illicit drug use otherwise. Past Surgical History Procedure Laterality Date Elbow surgery MEDICATIONS Current Outpatient Medications Medication Sig Blood Sugar Diagnostic (HouserieIA MICROFILL) In Vitro Strip use to test [...] Lashawn Joy PA-C [facility] [address] [facility] Mailcode: [place] [address] documented in this encounter Plan [...] | | | | | | [place] [address] | | | | | | [phone] | | | | | | | [...] | | | | | | [place] [address] | | | | | | [phone] | | | | | | | | +--------+ + + + + | 09/13/ | Office | Hematology & | Rodney, | | | 2018 | Visit | Oncology | MD Nabeel [address] | | | | | | [place], | | | | | | [place] [address] | | | | | | [phone] | | | | | | | | +--------+ + + + + | 01/24/ | Office | Surgery | Neri Steven MD | | | 2019 | Visit | | [address] | | | | | | [place], | | | | | | [place] [address] | | | | | | [phone] | | | | | | | [...] [address] | [place] | [phone] | | [place] | | | | [...] [address] | [place], [place] | [phone] | | [place] | | | | [...] [address] | [place], [place] | [phone] | | [place] | | | | [...] [address] | [place] | [phone] | | [place] | | | | [...] | + + + + + | [facility] | [address] | [place] [address] | | | SERVICES, CORE | ZENA [...] | + + + + + | [facility] - | [address] | [place] [address] | | | [place] | | | | + + + [...] | | | LABORATORY | | | [place] | | | SERVICES, | | | [...] | + + + + + | [facility] | [address] | [place] [address] | | | ZOEY DODD | ZENA [...] [facility] | [address] | [place] [address] | | | SERVICES, CORE | PARK [...]
--- OUTSIDE RECORDS SUMMARY | ~2019-08-28 | XMS | Encounter Summary ---
Demographics + + + | Address | [address] | | | [place] [address] | + + + | Home Phone | | + + + | Preferred Language | Unknown | + + + | Marital Status | Single | + + + | Mandaen Affiliation | CAT | + + + | Race | White | + + + | Ethnic Group | Not or | + + + Author + + + | Author | [facility] | + + + | Organization | [facility] | + + + | Address | Unknown | + + + | Phone | Unavailable | + + + Support + + + + + | Name | Relationship | Address | Phone | + + + + + | Samantha Ramos | ECON | [address] # | | | | | [place] | | | | | [address] | | + + + + + Care Team Providers + +------+ + | Care Wood Crafter Name | Role | Phone | + [...] | | | | [facility] | [place] [address] | | | | | [address] | | | | | | [place] Mailcode: | | | | | | [address] | | | | | | [place], [place] | | | | | | [address] | | | | | | [phone] | | | +--------+ + + + [...] 2019 | Encounter | | MD Harris [address] | | | | | | [place], | | | | | | [place] [address] | | | | | | [phone] | | | | | | | | +--------+ + + + + | 09/03/ | Appointment | Procedural Care Unit | | | | 2018 | | | | | +--------+ + + + + | 09/03/ | Appointment | Gastroenterology | Greg Mathis | | | 2018 | | | MD Harris [address] | | | | | | [place], | | | | | | [place] [address] | | | | | | [phone] | | | | | | | | +--------+ + + + + | 09/13/ | Office | Hematology & | Rodney | | | 2019 | Visit | Oncology | MD Leo Lees | | | | | | [place] | | | | | | [place] [address] | | | | | | [phone] | | | | | | | | +--------+ + + + + | 01/24/ | Office | Surgery | Neri Steven MD | | | 2020 | Visit | | [address] | | | | | | [place], | | | | | | [place] [address] | | | | | | [phone] | | | | | | | | +--------+ + + + + documented as of this encounter Visit Diagnoses Not on filedocumented in this encounter"
--- OUTSIDE RECORDS SUMMARY | ~2019-08-28 | XMS | Encounter Summary ---
Demographics + + + | Address | [address] | | | [place] [address] | + + + | Home Phone | | + + + | Preferred Language | Unknown | + + + | Marital Status | Single | + + + | Confucianist Affiliation | Unknown | + + + [...] | Gia Ramos | ECON | [address] | | | | | [place] | | | | | [address] | | + + + + + Care Team Providers + +------+ + | Care Receivables Specialist Name | Role | Phone | + +------+ + | Erich Yates | PCP | | + +------+ + Encounter Details +--------+ + + + + | Date | Type | Department | Care Team | Description | +--------+ + + + + | 05/15/ | Orders Only | [facility] | Conversion | | | 2017 | | [place]PH[place]OLOGY [place] | Transaction, | | | | | [address] | Provider Unknown | | | | | [address] [place], [place] | | | | | | [address] | (Fax) | | | | | [phone] | | | +--------+ + + + [...] | EXTERNAL LAB: CBC | Routin | 05/15/2018 | | Results for this | | | e | 1:45 PM | | procedure are in the | | | | PDT | | results section. | + +--------+ + + + | HEMOGLOBIN A1C | Routin | 05/15/2018 | | Results for this | | | e | 1:45 PM | | procedure are in the | | | | PDT | | results section. | + +--------+ + + + | COMPREHENSIVE | Routin | 05/15/2018 | | Results for this | | METABOLIC PANEL | e | 1:45 PM | | procedure are in the | | | | PDT | | results section. | + +--------+ + + + documented in this encounter Results Microalbumin/Creatinine Ratio, Urine (05/24/2018 9:25 AM PDT) [...] - 1.030 | EXTERNAL | | | [place] | | | LAB | | + [...] + + + + | Protein, | Comment: >300 | | EXTERNAL | | | Urine [...] Performed At | + + + | Casts: Hyaline 1+ WBC's: 5 RBC's: 5 Epithelial: Squamous 1+ | EXTERNAL LAB | + + + [...] + + + | RED CELL | 3.94 (A) | 4.3 - 5.7 10 | EXTERNAL | | | COUNT | | | LAB | | + + + + + + | Hgb | 11.7 (A) | 13.5 - 18.0 | EXTERNAL | | | | | g/dL | LAB | | + + + + + + | Hematocrit, | 36.3 (A) | 41 - 50 % | [...] | MCHC | 32 | 30 - 36 g/dL | EXTERNAL [...] + + + | % Segmented | | % | EXTERNAL | | | | | | LAB | | | Neutrophils | | | | | + + + + + + | % | | % | EXTERNAL | | | Lymphocytes | | | LAB | | + + + + + + | % Monocytes | | % | EXTERNAL | | | | | | LAB | | + + + + + + | % | | % | EXTERNAL | | | Eosinophils | | | LAB | | + + + + + + | % Basophils | | % | EXTERNAL | | | | [...] + | Creatinine | 1.44 (A) | 0.6 - 1.35 | EXTERNAL [...] | ALT | 13 | 7 - 52 U/L | EXTERNAL | | | | | | LAB | | + + + + + + | AST | 19 | 13 - 39 U/L | EXTERNAL [...] | Estimated | 58 (A) | 60 mg/dL | EXTERNAL | | | GFR [...] + +---------+ + + External Lab: CBC (05/15/2018 1:45 PM PDT) + + + + + + | Component | Value | Ref Range | Performed | Pathologist | | | | | At | Signature | + + + + + + | WBC | 8.5 | 4.5 - 11.0 10 | EXTERNAL | | | | | | LAB | | + + + + + + | RED CELL | 3.7 (A) | 4.3 - 5.7 10 | EXTERNAL | | | COUNT | | | LAB | | + + + + + + | Hgb | 11.3 (A) | 13.5 - 18.0 | EXTERNAL | | | | | g/dL | LAB | | + + + + + + | Hematocrit, | 34.1 (A) | 41 - 50 % | EXTERNAL | | | POC | | | LAB | | + + + + + + | MCV | 92.3 | 81 - 99 fL | EXTERNAL [...] + + + + | Platelet | 238 | 140 - 440 K/ L | EXTERNAL | | | Count | | | LAB | | | Plasma | | | | | + + + + + + | RDW-CV | 14.7 | 10.5 - 15.0 % | EXTERNAL [...] + + + | % Segmented | | % | EXTERNAL | | | | | | LAB | | | Neutrophils | | | | | + + + + + + | % | | % | EXTERNAL | | | Lymphocytes | | | LAB | | + + + + + + | % Monocytes | | % | EXTERNAL | | | | | | LAB | | + + + + + + | % | | % | EXTERNAL | | | Eosinophils | | | LAB | | + + + + + + | % Basophils | | % | EXTERNAL | | | | [...] | | + +---------+ + + Hemoglobin A1C (05/15/2018 1:45 PM PDT) + +-------+ + + + | Component | Value | Ref Range | Performed | Pathologist | | | | | At | Signature | + +-------+ + + + | Hemoglobin | 9.8 | % | EXTERNAL | | | A1c | | | LAB | | + [...] + +---------+ + + Comprehensive Metabolic Panel (05/15/2018 1:45 PM PDT) + + + + + + | Component | Value | Ref Range | Performed | Pathologist | | | | | At | Signature | + + + + + + | Glucose, | 197 (A) | 70 - 100 mg/dL | EXTERNAL | | | Fasting | | | LAB | | + + + + + + | BUN | 47 (A) | 6 - 23 mg/dL | EXTERNAL | | | | | | LAB | | + + + + + + | Creatinine | 1.59 (A) | 0.6 - 1.35 | EXTERNAL | | | | | mg/dL | LAB | | + + + + + + | BUN/Creatin | 29.6 (A) | 6.0 - 28.6 | EXTERNAL | | | ine Ratio | | | LAB | | + + + + + + | Calcium | 8.4 (A) | 8.5 - 10.3 | EXTERNAL | | | | | mg/dL | LAB | | + + + + + + | Protein, | 5.7 (A) | 6.0 - 8.3 g/dL | EXTERNAL | | | Total | | | LAB | | + + + + + + | Albumin | 2.9 (A) | 3.5 - 5.0 | EXTERNAL | | | | | | LAB | | + + + + + + | Globulin | 2.8 | 1.8 - 3.5 | EXTERNAL | [...] + + + + | ALP, | 88 | 31 - 120 | EXTERNAL | | | External | | | LAB | | + + + + + + | ALT | 21 | 7 - 52 U/L | EXTERNAL | | | | | | LAB | | + + + + + + | AST | 20 | 13 - 39 U/L | EXTERNAL | | | | | | LAB | | + + + + + + | Na | 139 | 132 - 143 | EXTERNAL | | | | | mmol/L | LAB | | + + + + + + | K | 5.1 | 3.6 - 5.1 | EXTERNAL | [...] + + + | Anion Gap | 17.1 | 7 - 21 mmol/L | EXTERNAL | | | | | | LAB | | + + + + + + | Estimated | 52 (A) | 60 mg/dL | EXTERNAL | | | GFR [...]
--- OUTSIDE RECORDS SUMMARY | ~2019-08-28 | XMS | Encounter Summary ---
Demographics + + + | Address | [address] | | | [place] [address] | + + + | Home Phone | | + + + | Preferred Language | Unknown | + + + | Marital Status | Single | + + + | Taoism Affiliation | Unknown | + + + | Race | Unknown | + + + | Ethnic Group | Unknown | + + + Author + + + | Author | [facility] | | | and [place] | + + + | Organization | [facility] | | | and [place] | + + + | Address | Unknown | + + + | Phone | Unavailable | + + + Support + + + + + | Name | Relationship | Address | Phone | + + + + + | Gia Ramos | ECON | [address] | | | | | [place] | | | | | [address] | | + + + + + Care Team Providers + +------+ + | Care Arch Pad Cementer Name | Role | Phone | + +------+ + | Erich Yates | PCP | | + +------+ + Encounter Details +--------+ + + + + | Date | Type | Department | Care Team | Description | +--------+ + + + + | 05/15/ | Orders Only | [facility] | Conversion | | | 2017 | | [place]PH[place]OLOGY [place] | Transaction, | | | | | [address] | Provider Unknown | | | | | [address] [place], [place] | | | | | | [address] | (Fax) | | | | | [phone] | | | +--------+ + + + [...] - 1.030 | EXTERNAL | | | [place] | | | LAB | | + [...]
--- OUTSIDE RECORDS SUMMARY | ~2019-08-28 | XMS | Encounter Summary ---
Demographics + + + | Address | [address] | | | [place] [address] | + + + | Home Phone | | + + + | Preferred Language | Unknown | + + + | Marital Status | Single | + + + | Voodoo Affiliation | Unknown | + + + | Race | Unknown | + + + | Ethnic Group | Unknown | + + + Author + + + | Author | [facility] | | | and [place] | + + + | Organization | [facility] | | | [...] | [id number] | | | | | [address] | | + + + + + Care Team Providers + +------+ + | Care Human Resources Vice President Name | Role | Phone | + [...] + | 07/03/ | Telephone | [facility] | [facility], | Care Plan | | 2019 | | GASTROENTEROLOGY | DANA [address] | | | | | [address] | [place], [address] | | | | | [address] [place], [place] | [place], [place] | | | | | [address] | [address] | | | | | [phone] | | | +--------+ + + + [...]
--- OUTSIDE RECORDS SUMMARY | ~2019-08-28 | XMS | Encounter Summary ---
Demographics + + + | Address | [address] | | | [place] [address] | + + + | Home Phone | | + + + | Preferred Language | Unknown | + + + | Marital Status | Single | + + + | Yarsanism Affiliation | Unknown | + + + [...] | [place] | | | | | [address] | | + + + + + Care Team Providers + +------+ + | Care Cabana Attendant Name | Role | Phone | + +------+ + | Ercih Yates | PCP | | + +------+ + Encounter Details +--------+ + + + + | Date | Type | Department | Care Team | Description | +--------+ + + + + | 02/01/ | Abstract | [facility] | Divya, | | | 2018 | | GASTROENTEROLOGY | MD [address] | | | | | [address] [facility] | [address]. | | | | | [address] [place] | [place] [address] | | | | | [address] | | | | | | [phone] | | | +--------+ + + + [...] - 1.03 | EXTERNAL | | | [place], | | | LAB | | | [...] | eGFR, | 54 (A) | 60 999 | EXTERNAL | | | External | [...]
--- OUTSIDE RECORDS SUMMARY | ~2019-08-28 | XMS | Encounter Summary ---
Demographics + + + | Address | [address] | | | [place] [address] | + + + | Home Phone | | + + + | Preferred Language | Unknown | + + + | Marital Status | Single | + + + | Gnosticist Affiliation | CAT | + + + [...] Samantha Ramos | ECON | [address] | | | | | [place] | | | | | [address] | | + + + + + Care Team Providers + +------+ + | Care Color Maker Name | Role | Phone | + [...] | Endocrinology | Diagnoses | Leydameet, | [facility], | | | Services | , Diabetes & | Type I | Neri Reynoso MD | Ashanti North MD | | | Required | Metabolism | (juvenile | [place] | [address] | | | | | type) | CLINIC | [facility] | | | | | diabetes | [address] | Rd | | | | | mellitus | BUILDING | [place], [place] | | | | | without | [address] | [address] | | | | | mention of | [address] | Phone: | | | | | complication | [place], | [phone] | | | | | , not stated | [place] [address] | Fax: | | | | | as | Phone: | [phone] | | | | | uncontrolled | [phone] | | | | | | | Fax: | | | | | | | [phone] | | +--------+ + + + + [...] | | | [facility] | [facility] [address] | | | | | [address] | [place], [place] | | | | | [address] | [address] | | | | | Physician's | [phone] | | | | | [address] | | | | | | [place], [place] | | | | | | [address] | | | | | | [phone] | | | +--------+---------+ + + + [...] in this encounter Patient Instructions Patient Instructions Ashatni Perla - 11/01/2007 1:53 PM PST1. Fill out log for 1 week a nd fax to me on [phone] or call/email earlier if blood sugars running consistently low . My email address is [email or web address] 2. Take 1 unit insulin for every [...] 1 week and fax to me on [phone] or call/email earlier if blood sarabia gars running consistently low. My email address is [email or web address] 2. Take 1 unit insulin for every [...] | | | | | | [place] [address] | | | | | | [phone] | | | | | | | [...] | | | | | | [place] [address] | | | | | | [phone] | | | | | | | | +--------+ + + + + | 09/13/ | Office | Hematology & | Rodney, | | | 2018 | Visit | Oncology | MD Leo Lees | | | | | | [place], | | | | | | [place] [address] | | | | | | [phone] | | | | | | | | +--------+ + + + + | 01/24/ | Office | Surgery | Neri Steven MD | | | 2020 | Visit | | [address] | | | | | | [place], | | | | | | [place] [address] | | | | | | [phone] | | | | | | | | +--------+ + + + + + + +--------+ + + | Name | Type | Priori | Associated Diagnoses | Order Schedule | | | | ty | | | + + +--------+ + + | IN COLLECTION | Procedures | Routin | DM w/o | Ordered: 11/01/2007 | | CAPILLARY BLOOD | | e | Complication Type I | | | SPECIMEN | | | | | + + +--------+ + + | IN GLYCATED | Lab | Routin | DM [...] - [facility] | [address] | [place], [place] | | | [facility] | [address] | [address] | | | TESTS | | | | + + + + + | [facility] | [address] | [place], [place] | | | TESTS | [facility] | [address] | | + + + + + documented in this encounter Visit Diagnoses + + | Diagnosis | + + | Type I (juvenile type) diabetes mellitus without mention of complication, not stated | | as uncontrolled - Primary | + + documented in this encounter
--- OUTSIDE RECORDS SUMMARY | ~2019-08-28 | XMS | Encounter Summary ---
Demographics + + + | Address | [address] | | | [place] [address] | + + + | Home Phone | | + + + | Preferred Language | Unknown | + + + | Marital Status | Single | + + + | Latter-Day Affiliation | CAT | + + + [...] | Samantha Ramos | ECON | [address] | | | | | [place] | | | | | [address] | | + + + + + Care Team Providers + +------+ + | Care Department Sales Manager Name | Role | Phone | [...] Only | [facility] [address] | [employer] [address] | | | | | [address] | [address] | | | | | Mailcode: PV430 | [place] [address] | | | | | [facility] | [phone] | | | | | [place], [place] | | | | | | [address] | | | | | | [phone] | | | +--------+ + + + [...] 2019 | Encounter | | MD Harris [address] | | | | | | [place] | | | | | | [place] [address] | | | | | | [phone] | | | | | | | [...] | | | | | | [place] [address] | | | | | | [phone] | | | | | | | | +--------+ + + + + | 09/13/ | Office | Hematology & | Rodney | | | 2019 | Visit | Oncology | MD Leo Lees | | | | | | [place] | | | | | | [place] [address] | | | | | | [phone] | | | | | | | | +--------+ + + + + | 01/24/ | Office | Surgery | Neri Steven MD | | | 2019 | Visit | | [address] | | | | | | [place], | | | | | | [place] [address] | | | | | | [phone] | | | | | | | [...]
--- OUTSIDE RECORDS SUMMARY | ~2019-08-28 | XMS | Encounter Summary ---
Demographics + + + | Address | [address] | | | [place] [address] | + + + | Home Phone | | + + + | Preferred Language | Unknown | + + + | Marital Status | Single | + + + | Hindu Affiliation | Unknown | + + + | Race | Unknown | + + + | Ethnic Group | Unknown | + + + Author + + + | Author | [facility] | | | and [place] | + + + | Organization | [facility] | | | and [place] | + + + | Address | Unknown | + + + | Phone | Unavailable | + + + Support + + + + + | Name | Relationship | Address | Phone | + + + + + | Gia Ramos | ECON | [address] | | | | | [place] | | | | | [address] | | + + + + + Care Team Providers + +------+ + | Care Cuprous Chloride Helper Name | Role | Phone | [...] + + | 06/09/ | Hospital | [facility] | Diony Hollis, | | | 2019 - | Encounter | [facility] | [address] | | | | | CARE FLO[address] | [place] [address] | | | 06/10/ | | [address] | [phone] | | | 2019 | | [place], [place] | | | | | | [address] | Solomon Jonas MD [address] | | | | | [phone] | [address] | | | | | | [place] [address] | | | | | | [phone] | | | | | | | | | | | | Jannette Spears MD | | | | | | [address] | | | | | | [place] [address] | | | | | | [phone] | | | | | | | | | | | | Andrey Gatica DO | | | | | | [address] | | | | | | [address] | | | | | | [place] [address] | | | | | | [phone] | | | | | | | [...] note might be different from rolando hercules. [facility] MEDICAL HOSPITALIST TEAM Patient leave AGAINST MEDICAL ADVICE documentation Pt. Name/Age/: Brooks Marquez 28 y.o. 1990 Date of Admission: 06/09/2019 Date of leaving hospital AGAINST MEDICAL ADVICE: 2018 PCP: Erich Yates Note conventional underwriter provider: Solomon Jonas MD HPI/Reason for Admission:-Chest pain with elevated troponin Hospital course, including complications: 28 years old gentleman with type 1 diabetes with renal complication and gastroparesis hyper tension chronic kidney disease stage III, chronic pain on narcotics status post right BKA fo r necrotizing fasciitis October 2018 transferred to [facility] from [facility] for anup st pain and elevated troponin Associated symptoms are diarrhea ongoing for which he stated as a chronic at 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 with history of gastric ulcers He also have gastropathy which was documented in [facility] by gastric emptying study in 2003 by [...] insulin IV morphine and tra nsferred to [facility] due to elevated troponin EKG shows sinus tachycardia no acute ischemic brown e repeat troponin at [facility] was unremarkable by record Patient was admitted [...] a scheduled gastroenterology appointment in June at [facility] for p ossible gastric pacemaker acute on [...] both patient and mother requesting to leave [facility] before I have a [...] + + +---------+ + + | | TAKE TABLET BY MOUTH | | 0 | 02/24/20 | | | HYDROcodone-acetamin | 4 TIMES DAILY | | | 19 | | | [...] | | | (ZANTAC) 150 mg | 2 [...] - 06/10/2019 4:55 AM PDTPt transferred from [facility]. Admitted by Dr. Ramakrishna Spears. Ewa grier called at approximated [phone] as patient was getting very agitated and [...] Hill RN documented i n this encounter Plan [...] + + | Performing | Address | City/State/[facility] | Phone Number | | Organization | [...] Testing | 65 - 99 mg/dL | [facility] | | | POC | performed at [facility];[address] | | LABORATORY | | | | [address];[place] | | | | | | [address] | | | | + + + + + + + + | Specimen | + + | | + + + + + + + | Performing | Address | City/State/Zipcode | Phone Number | | Organization | | | | + + + + + | [facility] | [address] | [place] [address] | [phone] | + + + + + Troponin I (06/10/2019 5:58 AM PDT) + + + + + + | Component | Value | Ref Range | Performed | Pathologist | | | | | At | Signature | + + + + + + | Troponin I | <0.006Comment: 0.04 | 0.00 - 0.04 | [facility] | | | | ng/mL [...] at | | | | | | [facility];[address] | | | | | | [place] [address] | | | | + + + + + + + + | Specimen | + + | | + + + + + + + | Performing | Address | City/State/Zipcode | Phone Number | | Organization | | | | + + + + + | [facility] | [address] | [place] [address] | [phone] | + + + + + Hemoglobin A1C (06/10/2019 5:58 AM PDT) + + + + + + | Component | Value | Ref Range | Performed | Pathologist | | | | | At | Signature | + + + + + + | Hemoglobin | 8.8 (H)Comment: HbA1c | 4.0 - 6.0 % | [facility] | | | A1c | [...] | 206 (H)Comment: | <154 mg/dL | [facility] | | | Average | Estimated Average | | LABORATORY | | | Glucose | Glucose calculated from | | | | | | hemoglobin A1c by use of | | | | | | the ADArecommended | | | | | | formula.Testing | | | | | | performed at [facility], [address] | | | | | | [address], | | | | | | [place] [address] | | | | + + + + + + + + | Specimen | + + | Blood | + + + + + + + | Performing | Address | City/State/Zipcode | Phone Number | | Organization | | | | + + + + + | [facility] | [address] | [place] [address] | [phone] | + + + + + TSH (06/10/2019 5:58 AM PDT) + + + + + + | Component | Value | Ref Range | Performed | Pathologist | | | | | At | Signature | + + + + + + | TSH | 0.811Comment: Testing | 0.450 - 5.100 | [facility] | | | | performed at [facility];[address] | uIU/mL | LABORATORY | | | | [address];[place] | | | | | | [address] | | | | + + + + + + + + | Specimen | + + | Blood | + + + + + + + | Performing | Address | City/State/Zipcode | Phone Number | | Organization | | | | + + + + + | [facility] | [address] | [place] [address] | [phone] | + + + + + Basic [...] | | | | | | [facility]D [facility] traceable | | | | | | equation.Testing | | | | | | performed at [facility];[address] | | | | | | [facility];[place], [place] | | | | | | [address] | | | | + + + + + + + + | Specimen | + + | Blood | + + + + + + + | Performing | Address | City/State/Zipcode | Phone Number | | Organization | | | | + + + + + | [facility] | [address] | [place] [address] | [phone] | + + + + + CBC [...] [facility] | | | | performed at [facility];[address] | | LABORATORY | | | | [address];[place], [place] | | | | | | [address] | | | | + + + + + + + + | Specimen | + + | Blood | + + + + + + + | Performing | Address | City/State/Zipcode | Phone Number | | Organization | | | | + + + + + | [facility] | [address] | [place] [address] | [phone] | + + + + + ECG [...] | | | POC | performed at [facility];[address] | | LABORATORY | | | | [address];[place] | | | | | | [address] | | | | + + + + + + + + | Specimen | + + | | + + + + + + + | Performing | Address | City/State/Zipcode | Phone Number | | Organization | | | | + + + + + | [facility] | [address] | [place] [address] | [phone] | + + + + + Troponin I (06/09/2019 11:38 PM PDT) + + + + + + | Component | Value | Ref Range | Performed | Pathologist | | | | | At | Signature | + + + + + + | Troponin I | <0.006Comment: 0.04 | 0.00 - 0.04 | [facility] | | | | ng/mL [...] at | | | | | | [facility];[address] [facility] | | | | | | [facility];[place] [address] | | | | + + + + + + + + | Specimen | + + | Blood | + + + + + + + | Performing | Address | City/State/Zipcode | Phone Number | | Organization | | | | + + + + + | [facility] | [address] | [place] [address] | [phone] | + + + + + Lipid [...] | | | Calculated | performed at [facility], [address] | | LABORATORY | | | | [address], | | | | | | [place] [address] | | | | + + + + + + + + | Specimen | + + | Blood | + + + + + + + | Performing | Address | City/State/Zipcode | Phone Number | | Organization | | | | + + + + + | [facility] | [address] | [place] [address] | [phone] | + + + + + Troponin I (06/09/2019 9:05 PM PDT) + + + + + + | Component | Value | Ref Range | Performed | Pathologist | | | | | At | Signature | + + + + + + | Troponin I | 0.006Comment: 0.04 | 0.00 - 0.04 | [facility] | | | | ng/mL [...] at | | | | | | [facility];[address] [facility] | | | | | | [facility];[place] [address] | | | | + + + + + + + + | Specimen | + + | Blood | + + + + + + + | Performing | Address | City/State/Zipcode | Phone Number | | Organization | | | | + + + + + | [facility] | [address] | [place] [address] | [phone] | + + + + + POC [...] | | | POC | performed at [facility];[address] | | LABORATORY | | | | [address];[place], [place] | | | | | | [id number] | | | | + + + + + + + + | Specimen | + + | | + + + + + + + | Performing | Address | City/State/Zipcode | Phone Number | | Organization | | | | + + + + + | [facility] | [address] | [place] [address] | [phone] | + + + + + documented [...]
--- OUTSIDE RECORDS SUMMARY | ~2019-08-28 | XMS | Encounter Summary ---
Demographics + + + | Address | [address] | | | [place] [address] | + + + | Home Phone | | + + + | Preferred Language | Unknown | + + + | Marital Status | Single | + + + | Tenriism Affiliation | Unknown | + + + | Race | Unknown | + + + | Ethnic Group | Unknown | + + + Author + + + | Author | [facility] | | | and [place] | + + + | Organization | [facility] | | | and [place] | + + + | Address | Unknown | + + + | Phone | Unavailable | + + + Support + + + + + | Name | Relationship | Address | Phone | + + + + + | Gia Ramos | ECON | [address] | | | | | [place] | | | | | [address] | | + + + + + Care Team Providers + +------+ + | Care Social Organization Professor Name | Role | Phone | [...] [place] | | | | | | [address] | (Fax) | | | | | [phone] | | | +--------+ + + + [...] + + + | RED CELL | 3.41 (A) | 4.3 - 5.7 10 | EXTERNAL | | | COUNT | | | LAB | | + + + + + + | Hgb | 10.2 (A) | 13.5 - 18.0 [...] - 1.030 | EXTERNAL | | | [place] | | | LAB | | + [...] - 1.030 | EXTERNAL | | | [place] | | | LAB | | + [...]
--- OUTSIDE RECORDS SUMMARY | ~2019-08-28 | XMS | Encounter Summary ---
Demographics + + + | Address | [address] | | | [place] [address] | + + + | Home Phone | | + + + | Preferred Language | Unknown | + + + | Marital Status | Single | + + + | Orthodoxy Affiliation | CAT | + + + [...] Samantha Ramos | ECON | [address] | | | | | [place] | | | | | [address] | | + + + + + Care Team Providers + +------+ + | Care Bottoming Room Inspector Name | Role | Phone | + +------+ + | Erich Yates PA-C | PCP | | + +------+ + Reason for Referral Diagnostic Testing (Routine) + +--------+ + + + + | Status | Reason | Specialty | Diagnoses / | Referred By | Referred To | | | | | Procedures | Contact | Contact | + +--------+ + + + + | Authorized | | Radiology | Diagnoses | Maurizio | | | | | | Diabetic | MD Neri | | | | | | gastroparesi | [address] [facility] | | | | | | s associated | [address] | | | | | | with type [address] | Rd | | | | | | diabetes | [place], [place] | | | | | | mellitus | [address] | | | | | | (HCC) | Phone: | | | | | | Procedures | [phone] | | | | | | NM GASTRIC | Fax: | | | | | | EMPTYING | [phone] | | | | | | STUDY NM | | | | | | | GASTRIC | | | | | | | EMPTYING | | | | | | | STUDY | | | + +--------+ + + + + Consultation (Routine) + [...] | Diabetic | MD Neri | [address] | | | | | gastroparesi | [address] | [address] | | | | | s associated | [address] | [place] | | | | | with type 1 | Rd | Mailcode: | | | | | diabetes | [place], [place] | [facility] | | | | | mellitus | [address] | [place] | | | | | ([facility]) | Phone: | [address] | | | | | Procedures | [phone] | [place], | | | | | CONSULT TO | Fax: | [place] [address] | | | | | GI PROCEDURE | [phone] | Phone: | | | | | UNIT: EGD | | [phone] | | | | | | | Fax: | | | | | | | [phone] | + +--------+ + + + + Encounter Details +--------+ + + + + | Date | Type | Department | Care Team | Description | +--------+ + + + + | 07/04/ | [facility] | Digestive Health | Neri Steven MD | Diabetic | | 2019 | | Center at [facility] [address] | [address] | gastroparesis | | | | [address] | [place], | associated with type | | | | Mailcode: Center | [place] [address] | 1 diabetes mellitus | | | | for Health and | [phone] | ([facility]) (Primary Dx) | | | | Healing, [address] | | | | | | [place], [place] | | | | | | [address] | | | | | | [phone] | | | +--------+ + + + [...] 2018 | Encounter | | MD Harris [address] | | | | | | [place], | | | | | | [place] [address] | | | | | | [phone] | | | | | | | | +--------+ + + + + | 09/03/ | Appointment | Procedural Care Unit | | | | 2018 | | | | | +--------+ + + + + | 09/03/ | Appointment | Gastroenterology | Greg Mathis | | | 2018 | | | MD Harris [address] | | | | | | [place], | | | | | | [place] [address] | | | | | | [phone] | | | | | | | | +--------+ + + + + | 09/13/ | Office | Hematology & | Rodney, | | | 2018 | Visit | Oncology | MD Nabeel [address] | | | | | | [place], | | | | | | [place] [address] | | | | | | [phone] | | | | | | | | +--------+ + + + + | 01/24/ | Office | Surgery | Neri tSeven MD | | | 2019 | Visit | | [address] | | | | | | [place], | | | | | | [place] [address] | | | | | | [phone] | | | | | | | [...] mellitus | | | | | | (HCC) | | + +---------+--------+ + + documented as of this encounter Visit Diagnoses + + | Diagnosis | + + | Diabetic gastroparesis associated with type 1 diabetes mellitus (HCC) - Primary | + + documented in this encounter"
--- OUTSIDE RECORDS SUMMARY | ~2019-08-28 | XMS | Encounter Summary ---
Demographics + + + | Address | [address] | | | [place] [address] | + + + | Home Phone [...] | Gia Ramos | ECON | [address] | | | | | [place] | | | | | [address] | | + + + + + Care Team Providers + +------+ + | Care Dairy Tester Name | Role | Phone | [...] + + | 09/19/ | Surgery | [facility] | Tc Mora | CYSTOSCOPY W/ | | 2017 | | MED CTR OR INTRA OP | MD Boyd [address] | URETEROSCOPY W/ | | | | [address] | [place] | LASER LITHOTRIPSY | | | | [place] | [address] | WITH STENT PLACEMENT | | | | [address] | | | | | | [phone] | | | +--------+---------+ + + + [...] | dicyclomine | | | 0 | //20 | | | (BENTYL) 20 MG | [...] might be differ ent from the original. [facility] Urology Progress Note Brooks Marquez is now [...] [address] | [place] | [phone] | | [facility] | | [address] | | | - LABORATORY | | [...] (H) | 7 - 18 mg/dL | [facility] | | | | | | [facility] | | | | | | MEDICAL | | | | | | CENTER - | | | | | | LABORATORY | | + + + + + + | Creatinine | 2.16 (H) | 0.60 - 1.30 | [facility] | | | | | mg/dL | [facility] | | | | | | MEDICAL | | | | | | CENTER - | | | | | | LABORATORY | | + + + + + + | eGFR if not | 37 (L)Comment: | >=60 | [facility] | | | | GLOMERULAR FILTRATION | mL/min/1.73m2 | [facility] | | | [place] | RATE,ESTIMATED | | MEDICAL | | | | mL/min/1.87p6Efwc than | | CENTER - | | [...] [address] | [place] | [phone] | | [facility] | | [address] | | | - LABORATORY | | [...] | | | Urine | | | CURLY | | | [...] [address] | [place] | [phone] | | [facility] | | [address] | | | - LABORATORY | | [...] ST. | [address] | [place] | [phone] | | [facility] | | [address] | | | - LABORATORY | | [...] ST. | [address] | [place], [place] | [phone] | | [facility] | | [address] | | | - LABORATORY | | [...] | | | | Yellow, Straw | [facility] [...] - 1.030 | [facility] | | | Brandon | | | [facility] | | [...] + | [facility] [facility] | [address] | [place] | [phone] | | [facility] | | [address] | | | - LABORATORY | | [...] [address] | [place] | [phone] | | [facility] | | [address] | | | - LABORATORY | | [...] + | [facility] | [address] | [place] | [phone] | | [facility] | | [address] | | | - LABORATORY | | [...] [address] | [place] | [phone] | | [facility] | | [address] | | | - LABORATORY | | [...] [address] | [place] | [phone] | | [facility] | | [address] | | | - LABORATORY | | [...] (H) | 7 - 18 mg/dL | [facility] | | | | | | [facility] | | | | | | MEDICAL | | | | | | CENTER - | | | | | | LABORATORY | | + + + + + + | Creatinine | 2.07 (H) | 0.60 - 1.30 | [facility] | | | | | mg/dL | [facility] | | | | | | MEDICAL | | | | | | CENTER - | | | | | | LABORATORY | | + + + + + + | eGFR if not | 38 (L)Comment: | >=60 | [facility] | | | | GLOMERULAR FILTRATION | mL/min/1.73m2 | [facility] | | | [place] | RATE,ESTIMATED | | MEDICAL | | | | mL/min/1.63t2Iyxi than | | CENTER - | | [...] + | [facility] | [address] | [place] | [phone] | | [facility] | | [address] | | | - LABORATORY | | [...] [address] | [place] | [phone] | | [facility] | | [address] | | | - LABORATORY | | [...] MD | | | | | | ([id number]) on 09/21/2018 | | | | | [...] [address] | [place] | [phone] | | [facility] | | [address] | | | - LABORATORY | | [...] | nRBC | | K/uL | [facility] | | | | [...] [address] | [place] | [phone] | | [facility] | | [address] | | | - LABORATORY | | [...] Critical Result called | mmol/L | [facility] | | | | to and [...] mL/min/1.73m2 | [facility] | | | [place] | RATE,ESTIMATED | | MEDICAL | | | | mL/min/1.46p3Ttru than | | CENTER - | | [...] [address] | [place] | [phone] | | [facility] | | [address] | | | - LABORATORY | | [...] [address] | [place] | [phone] | | [facility] | | [address] | | | - LABORATORY | | [...] | | | + +---------+ + + KENDRA FernandezChirag Roper No Erin (09/19/2018 10:11 PM PST) [...] mL/min/1.73m2 | [facility] | | | [place] | RATE,ESTIMATED | | MEDICAL | | | | mL/min/1.85f0Ljjx than | | CENTER - | | [...] + | BUN/Creatin | 15.0 | | HIGINIO | | | ine [...] [address] | [place] | [phone] | | [facility] | | [address] | | | - LABORATORY | | [...] + | [facility] [facility] | [address] | [place] | [phone] | | [facility] | | [address] | | | - LABORATORY | | [...] [facility] | | | | | | at:[phone]. | | | | + + + [...] + | Performed at: 01 - [facility] [address], | REFERENCE LAB | | [place] [id number] Education Nurse: Saarbjit Love MD, Phone: | MICHELLE - CIERRA | | [phone] | | + + + + + + + + | Performing | Address | City/State/Zipcode | Phone Number | | Organization | | | | + + + + + | REFERENCE LAB | [address] | [place] [address] | [phone] | | [facility] | Drive [...] ST. | [address] | [place], [place] | [phone] | | [facility] | | [address] | | | - LABORATORY | | [...] | | | | | | | 3939-3757 Use NIGHT DOSE for | | | | | | | doses scheduled: HS, 3AM, | | | | | | | Nighttime 6740-2075, | | | | | | + [...]
--- OUTSIDE RECORDS SUMMARY | ~2019-08-28 | XMS | Encounter Summary ---
Demographics + + + | Address | [address] | | | [place] [address] | + + + | Home Phone | | + + + | Preferred Language | Unknown | + + + | Marital Status | Single | + + + | Anabaptism Affiliation | CAT | + + + [...] Samantha Ramos | ECON | [address] # | | | | | [place], [place] | | | | | [address] | | + + + + + Care Team Providers + +------+ + | Care Residential Care Facility Manager Name | Role | Phone | [...] + | 09/03/ | Hospital | | rGeg Mathis | | | 2019 | Encounter | | MD Harris [address] | | | | | | [place], | | | | | | [place] [address] | | | | | | [phone] | | | | | | | [...] | | | | | | [place] [address] | | | | | | [phone] | | | | | | | | +--------+ + + + + | 09/13/ | Office | Hematology & | Rodney, | | | 2019 | Visit | Oncology | MD Leo Lees | | | | | | [place] | | | | | | [place] [address] | | | | | | [phone] | | | | | | | | +--------+ + + + + | 01/24/ | Office | Surgery | Neri Steven MD | | | 2020 | Visit | | [address] | | | | | | [place], | | | | | | [place] [address] | | | | | | [phone] | | | | | | | | +--------+ + + + + documented as of this encounter Visit Diagnoses Not on filedocumented in this encounter"
--- OUTSIDE RECORDS SUMMARY | ~2019-08-28 | XMS | Encounter Summary ---
Demographics + + + | Address | [address] | | | [place] [address] | + + + | Home Phone [...] | Gia Ramos | ECON | [address] | | | | | [place] | | | | | [address] | | + + + + + Care Team Providers + +------+ + | Care Electromatic Typist Name | Role | Phone | + +------+ + | Erich Yates | PCP | | + +------+ + Encounter Details +--------+ + + + + | Date | Type | Department | Care Team | Description | +--------+ + + + + | 01/11/ | Orders Only | [facility] | Winston Whitman MD | | | 2019 | | NEPRHOLOGY [place] | [address] [place] | | | | | [address] | [address] [place], [place] | | | | | [address] [place], [place] | [address] | | | | | [address] | | | | | | [phone] | | | +--------+ + + + [...]
--- OUTSIDE RECORDS SUMMARY | ~2019-08-28 | XMS | Encounter Summary ---
Demographics + + + | Address | [address] | | | [place] [address] | + + + | Home Phone | | + + + | Preferred Language | Unknown | + + + | Marital Status | Single | + + + | Episcopalian Affiliation | CAT | + + + [...] Samantha Ramos | ECON | [address] | | | | | [place], [place] | | | | | [address] | | + + + + + Care Team Providers + +------+ + | Care Assistant Professor Nurse Education Name | Role | Phone | + [...] 2019 | Encounter | | MD Harris [address] | | | | | | [place], | | | | | | [place] [address] | | | | | | [phone] | | | | | | | [...] | | | | | | [place] [address] | | | | | | [phone] | | | | | | | | +--------+ + + + + | 09/13/ | Office | Hematology & | Rodney, | | | 2019 | Visit | Oncology | MD Leo Lees | | | | | | [place] | | | | | | [place] [address] | | | | | | [phone] | | | | | | | | +--------+ + + + + | 01/24/ | Office | Surgery | Neri Steven MD | | | 2020 | Visit | | [address] | | | | | | [place], | | | | | | [place] [address] | | | | | | [phone] | | | | | | | | +--------+ + + + + documented as of this encounter Visit Diagnoses Not on filedocumented in this encounter"
--- OUTSIDE RECORDS SUMMARY | ~2019-08-28 | XMS | Encounter Summary ---
Demographics + + + | Address | [address] | | | [place] [address] | + + + | Home Phone | | + + + | Preferred Language | Unknown | + + + | Marital Status | Single | + + + | Caodaism Affiliation | CAT | + + + [...] Samantha Ramos | ECON | [address] # | | | | | [place] | | | | | [address] | | + + + + + Care Team Providers + +------+ + | Care Community Specialist Name | Role | Phone | [...] | Activity | [address] | [address] | | | | | [place] Mailcode: [id number] | [address] | | | | | [place], [place] | [place], [place] | | | | | [address] | [address] | | | | | [phone] | [phone] | | | | | | | [...] 2019 | Encounter | | MD Harris [address] | | | | | | [place], | | | | | | [place] [address] | | | | | | [phone] | | | | | | | [...] | | | | | | [place] [address] | | | | | | [phone] | | | | | | | | +--------+ + + + + | 09/13/ | Office | Hematology & | Rodney | | | 2018 | Visit | Oncology | MD Leo Lees | | | | | | [place] | | | | | | [place] [address] | | | | | | [phone] | | | | | | | | +--------+ + + + + | 01/24/ | Office | Surgery | Neri Steven MD | | | 2019 | Visit | | [address] | | | | | | [place], | | | | | | [place] [address] | | | | | | [phone] | | | | | | | [...] + + | Performing | Address | City/State[facility] | Phone Number | | Organization | | | | + + + + + | [facility] | [address] | [place] [address] | | | PATHOLOGY | [address] [address] | | | + + + + + | [facility] | [address] | [place] [address] | | | PATHOLOGY | [address] | | | + + + + + documented in this encounter Visit Diagnoses Not on filedocumented in this encounter"
--- OUTSIDE RECORDS SUMMARY | ~2019-08-28 | XMS | Encounter Summary ---
Demographics + + + | Address | [address] | | | [place] [address] | + + + | Home Phone | | + + + | Preferred Language | Unknown | + + + | Marital Status | Single | + + + | Bahai Affiliation | CAT | + + + [...] Samantha Ramos | ECON | [address] # | | | | | [place] | | | | | [address] | | + + + + + Care Team Providers + +------+ + | Care Edge Drummer Name | Role | Phone | + [...] | | | | | [facility] | [address] | | | | | | CLINIC | [address] | | | | | | FIFI | [place] | | | | | | BUILDING | Mailcode: | | | | | | [address] | [address] | | | | | | [address] | [address] | | | | | | [place], | [place], [place] | | | | | | [place] [address] | [address] | | | | | | Phone: | Phone: | | | | | | [phone] | [phone] | | | | | | Fax: | Fax: | | | | | | [phone] | [phone] | +--------+--------+ + + + + Encounter Details +--------+ + + + + | Date | Type | Department | Care Team | Description | +--------+ + + + + | 11/02/ | Office | Pediatric | Ashanti Roque, | Progress Note | | 2006 | Visit-ECX | Endocrinology at | MD [address] | | | | | [place] | [address] | | | | | [facility] | [place], [place] | | | | | [address] | [address] | | | | | [place] Mailcode: | [phone] | | | | | [address] | | | | | | [place], [place] | | | | | | [address] | | | | | | [phone] | | | +--------+ + + + [...] as of this encounter Progress Notes Interface, Physiological Chemist In - 12/15/2006 6:28 AM PDT [id number] NAHOMY ANDRADE BROOKS Durbin [id number] Clinic Date: 11/02/2006 Clinic: Pediatric Endocrinology Problem [...] insulin regimen as necessary. Ashanti Roque M.D. JEREMY / CONTRERAS [id number] / [id number] / 12129 / 30209 cc: Neri Mojica M.D. [address] [facility] [address] [place], [id number], Account: [id number], DocSeq: [id number] Addendum December 09 2006 Alin's random urine [...] | | | | | | [place] [address] | | | | | | [phone] | | | | | | | [...] | | | | | | [place] [address] | | | | | | [phone] | | | | | | | | +--------+ + + + + | 12/19/ | Office | Hematology & | Rodney, | | | 2018 | Visit | Oncology | MD Nabeel [address] | | | | | | [place], | | | | | | [place] [address] | | | | | | [phone] | | | | | | | | +--------+ + + + + | 01/24/ | Office | Surgery | Neri Steven MD | | | 2019 | Visit | | [address] | | | | | | [place], | | | | | | [place] [address] | | | | | | [phone] | | | | | | | [...] + + + + + | [facility] | [address] | [place], [place] | | | [address] POINT OF CARE | [address] | [address] | | | TESTS | | | | + + + + + | [facility] | [address] | [place], [place] | | | TESTS | [address] | [address] | | + + + + + documented in this encounter Visit Diagnoses Not on filedocumented in this encounter"
--- OUTSIDE RECORDS SUMMARY | ~2019-08-28 | XMS | Encounter Summary ---
Demographics + + + | Address | [address] | | | [place] [address] | + + + | Home Phone | | + + + | Preferred Language | Unknown | + + + | Marital Status | Single | + + + | Jew Affiliation | Unknown | + + + | Race | Unknown | + + + | Ethnic Group | Unknown | + + + Author + + + | Author | [facility] | | | and [place] | + + + | Organization | [facility] | | | [...] | [place] | | | | | [address] | | + + + + + Care Team Providers + +------+ + | Care Needleworker Name | Role | Phone | + +------+ + | Erich Yates | PCP | | + +------+ + Encounter Details +--------+ + + + + | Date | Type | Department | Care Team | Description | +--------+ + + + + | 05/15/ | Abstract | [facility] | Divya, | | | 2017 | | GASTROENTEROLOGY | MD [address] | | | | | [address] [facility] | [place]. | | | | | [address] | [place] [address] | | | | | [address] | | | | | | [phone] | | | +--------+ + + + [...]
--- OUTSIDE RECORDS SUMMARY | ~2019-08-28 | XMS | Encounter Summary ---
Demographics + + + | Address | [address] | | | [place] [address] | + + + | Home Phone | | + + + | Preferred Language | Unknown | + + + | Marital Status | Single | + + + | Sikh Affiliation | Unknown | + + + | Race | Unknown | + + + | Ethnic Group | Unknown | + + + Author + + + | Author | [facility] | | | and [place] | + + + | Organization | [facility] | | | and [place] | + + + | Address | Unknown | + + + | Phone | Unavailable | + + + Support + + + + + | Name | Relationship | Address | Phone | + + + + + | Gia Ramos | ECON | [address] | | | | | [place] | | | | | [address] | | + + + + + Care Team Providers + +------+ + | Care Custodial Operations Manager Name | Role | Phone | + +------+ + | Erich Yates | PCP | | + +------+ + Encounter Details +--------+ + + + + | Date | Type | Department | Care Team | Description | +--------+ + + + + | 06/20/ | Orders Only | [facility] | Winston Whitman MD | CKD (chronic kidney | | 2019 | | NEPHROLOGY [place] | [address] [place] | disease), stage III | | | | [address] [place] | [address] [place], [place] | ([facility]) (Primary Dx) | | | | [address] [place], [place] | [address] | | | | | [address] | | | | | | [phone] | | | +--------+ + + + [...]
--- OUTSIDE RECORDS SUMMARY | ~2019-08-28 | XMS | Encounter Summary ---
Demographics + + + | Address | [address] | | | [place] [address] | + + + | Home Phone | | + + + | Preferred Language | Unknown | + + + | Marital Status | Single | + + + | Jewish Affiliation | CAT | + + + | Race | White | + + + | Ethnic Group | Not or | + + + Author + + + | Author | [facility] | + + + | Organization | [facility] | + + + | Address | Unknown | + + + | Phone | Unavailable | + + + Support + + + + + | Name | Relationship | Address | Phone | + + + + + | Samantha Ramos | ECON | [address] | | | | | [place] | | | | | [address] | | + + + + + Care Team Providers + +------+ + | Care Swabber Name | Role | Phone | + [...] | Endocrinology | Diagnoses | Le[place]et, | [facility], | | | Services | , Diabetes & | Type I | Neri Reynoso MD | Ashanti North MD | | | Required | Metabolism | (juvenile | [place] | [address] | | | | | type) | CLINIC | [facility] | | | | | diabetes | [address] | Rd | | | | | mellitus | BUILDING | [place], [place] | | | | | without | [address] | [address] | | | | | mention of | [address] | Phone: | | | | | complication | [place], | [phone] | | | | | , not stated | [place] [address] | Fax: | | | | | as | Phone: | [phone] | | | | | uncontrolled | [phone] | | | | | | | Fax: | | | | | | | [phone] | | +--------+ + + + + [...] | | | [facility] | [facility] [address] | | | | | [address] | [place], [place] | | | | | [address] | [address] | | | | | Physician's | [phone] | | | | | [address] | | | | | | [place], [place] | | | | | | [address] | | | | | | [phone] | | | +--------+---------+ + + + [...] week a nd fax to me on [phone]- or call/email earlier if blood sugars running consistently low . My email address is [email or web address] 2. Take 1 unit insulin for [...] 1 week and fax to me on [phone]- or call/email earlier if blood sarabia gars running consistently low. My email address is [email or web address] 2. Take 1 unit insulin for [...] | | | | | | [place] [address] | | | | | | [phone] | | | | | | | [...] | | | | | | [place] [address] | | | | | | [phone] | | | | | | | | +--------+ + + + + | 09/13/ | Office | Hematology & | [place], | | | 2018 | Visit | Oncology | MD Leo Lees | | | | | | [place], | | | | | | [place] [address] | | | | | | [phone] | | | | | | | | +--------+ + + + + | 01/24/ | Office | Surgery | Neri Steven MD | | | 2020 | Visit | | [address] | | | | | | [place], | | | | | | [place] [address] | | | | | | [phone] | | | | | | | | +--------+ + + + + + + +--------+ + + | Name | Type | Priori | Associated Diagnoses | Order Schedule | | | | ty | | | + + +--------+ + + | MN COLLECTION | Procedures | Routin | DM w/o | Ordered: 11/01/2007 | | CAPILLARY BLOOD | | e | Complication Type I | | | SPECIMEN | | | | | + + +--------+ + + | [place] GLYCATED | Lab | Routin | DM [...] - [facility] | [address] | [place], [place] | | | [facility] | [address] | [address] | | | TESTS | | | | + + + + + | [facility] | [address] | [place], [place] | | | TESTS | [facility] | [address] | | + + + + + documented in this encounter Visit Diagnoses + + | Diagnosis | + + | Type I (juvenile type) diabetes mellitus without mention of complication, not stated | | as uncontrolled - Primary | + + documented in this encounter
--- OUTSIDE RECORDS SUMMARY | ~2019-08-28 | XMS | Encounter Summary ---
Demographics + + + | Address | [address] | | | [place] [address] | + + + | Home Phone [...] + + + | Author | [facility] | | | and [place] | + + + | Organization | [facility] | | | and [place] | + + + | Address | Unknown | + + + | Phone | Unavailable | + + + Support + + + + + | Name | Relationship | Address | Phone | + + + + + | Gia Ramos | ECON | [address] | | | | | [place] | | | | | [address] | | + + + + + Care Team Providers + +------+ + | Care Sammying Machine Operator Name | Role | Phone | + +------+ + | Erich Yates | PCP | | + +------+ + Encounter Details +--------+ + + + + | Date | Type | Department | Care Team | Description | +--------+ + + + + | 05/15/ | Orders Only | [facility] | Conversion | | | 2017 | | [place] | Transaction, | | | | | [address] | Provider Unknown | | | | | [address] [place], [place] | | | | | | [address] | (Fax) | | | | | [phone] | | | +--------+ + + + [...] - 1.030 | EXTERNAL | | | [place] | | | LAB | | + [...]
--- OUTSIDE RECORDS SUMMARY | ~2019-08-28 | XMS | Encounter Summary ---
Demographics + + + | Address | [address] | | | [place] [address] | + + + | Home Phone [...] | [id number] | | | | | [address] | | + + + + + Care Team Providers + +------+ + | Care Wheel Fitter Name | Role | Phone | [...] | 03/22/ | Telephone | [facility] [place] [facility], | Referral | | 2019 | | GASTROENTEROLOGY | [address] [address] | | | | | [address] [place] | [place], [address] | | | | | [address] [place], [place] | [place], [place] | | | | | [address] | [address] | | | | | [phone] | | | +--------+ + + + [...]
--- OUTSIDE RECORDS SUMMARY | ~2019-08-28 | XMS | Encounter Summary ---
Demographics + + + | Address | [address] | | | [place] [address] | + + + | Home Phone | | + + + | Preferred Language | Unknown | + + + | Marital Status | Single | + + + | Church Affiliation | CAT | + + + [...] Samantha Ramos | ECON | [address] # | | | | | [place] | | | | | [address] | | + + + + + Care Team Providers + +------+ + | Care Wound Care Coordinator Name | Role | Phone | [...] | Endocrinology | Diagnoses | Rey | [facility] | | | | , Diabetes & | Diabetic | MD Eunice | Adult Ppv | | | | Metabolism | ketoacidosis | [address] | [address] | | | | | without | Gurpreet Zena | [facility] | | | | | coma | Rd | Rd | | | | | associated | [place], [place] | Physician's | | | | | with type 1 | [address] | Bg Fabrice | | | | | diabetes | Phone: | 140 | | | | | mellitus | [phone] | [place], [place] | | | | | (FORMERLY [facility]) Type | Fax: | [address] | | | | | 1 diabetes | [phone] | Phone: | | | | | mellitus | | [phone] | | | | | with | | Fax: | | | | | hyperglycemi | | [phone] | | | | | a (FORMERLY [facility]) | | | | | | [...] Closed | | Endocrinology | Diagnoses | Rey, | Dbt Diab Ed | | | | , Diabetes & | Type 1 | MD Eunice | Ppv [address] | | | | Metabolism | diabetes | [address] | [address] | | | | | mellitus | [facility] | [address] | | | | | with | Rd | Mailcode: | | | | | hyperglycemi | [place], [place] | [address] | | | | | a (FORMERLY [facility]) | [address] | Physician's | | | | | Procedures | Phone: | Bg Olmos | | | | | CONSULT TO | [phone] | 140 | | | | | ADULT | Fax: | [place], [place] | | | | | DIABETES - | [phone] | [address] | | | | | EDUCATION | | Phone: | | | | | (DIABETES | | [phone] | | | | | SELF-MANAGEM | | Fax: | | | | | ENT) | | [phone] | +--------+--------+ + + + + Reason [...] + + | 08/25/ | Hospital | [facility] [address] | [address] | | | 2015 - | Encounter | Nathalia Bernardo MD [address] | | | | | 14C [facility] | [address] | | | 08/27/ | | [place], [place] | [place], [place] | | | 2014 | | [address] | [address] | | | | | [phone] | [phone] | | | | | | | | | | | | Harris Martínez MD | | | | | | Chrissie | | | | | | [facility] | | | | | | Center [address] | | | | | | [address] [place], | | | | | | [place] [address] | | | | | | [phone] | | | | | | | | | | | | Jeff Diggs, | | | | | | ,MPH [address] | | | | | | [facility] [address] | | | | | | [facility], [place] | | | | | | [address] | | | | | | [phone] | | | | | | | | | | | | Eunice Parada MD | | | | | | [address] | | | | | | [facility] [address] | | | | | | [place], [place] | | | | | | [address] | | | | | | [phone] | | | | | | | | | | | | Vern Garnica, | | | | | | [address] | | | | | | [facility] [address] | | | | | | [facility], [place] | | | | | | [address] | | | | | | [phone] | | | | | | | [...] Procedures 1. Gastric emptying study Consulting Services: Principal Law Clerk Reason For Admission: Diabetic ketoacidosis. Hyperglycemia, acute [...] endocrinolog y and diabetes education here at [facility] which were completed. He was counseled on how to rotat e sites for his insulin injections. - Continue glargine 15 units daily + lispro 1 unit per 15 g carb - Outpatient referral to endocrinology and para educator - Will need outpatient follow up [...] 28 -- 31 -- -- -- BUN -- 11 -- 10 -- -- -- [...] 72 hours (or 3 results) Recent Labs 08/25/15213208/25/152140 WBC 7.52 -- HB 13.4* 14.6 HCT 40.0* 43 PLT 290 -- NEUTROPERC 68.2 -- LYMPHPERC 23.5 -- MONOPERC 6.4 -- BASOPERC 0.9 -- EOSPERC 0.5* -- Liver Tests: Last 72 hours (or 3 results) Recent Labs 08/25/152132 AST 23 ALT 37 TBILI 0.4 AP [...] use to test blood glucose 5x ahmet ly, Disp-150, R-1, Fax Insulin Lispro (Human) (HUMALOG [...] post-hospitalization follow-up; Appt at 740am Contact information [facility] [address] [place] [id number] Follow up with [facility] at [facility] 1st Floor. Specialty: Endocrinology, Diabetes & Metabolism Why: To establish care; follow up on referral to endocrinology if you do not hear back fr om them in 1 week Contact information [address] [address] Additional information: [facility], 1st floor [address] [place] [address] The [facility] is the building just past [facility]. Turn right immediately past the [address]. The entrance to [facility] will be on your right just beyond the main doors to the [facility]. An elevator in e parking garage will take patients directly to the floor of the clinic. The [facility] is located on the 1st floor. Please check in at the front desk receptionist. M aps and directions can be found at: [email or web address] Other Discharge Orders and Instructions It was a pleasure taking care of you while you were here at [facility] 1) Take all your medications as prescribed especially your insulin and blood pressure medic ations 2) Follow up with your PCP Dr. Pascual on 09/02 at 740am. 3) Make sure to rotate location of where you inject your insulins and keep close track of y our blood sugars 4) We will make referral to [facility] endocrinology but please follow up [...] nearest ER for evaluation. Referrals placed to [facility] endocrinology and para educator This note was routed to patient's PCP in [facility]. EUNICE PARADA MD Pager - [phone] Platform Mill Supervisorfudge candy maker Clinical and Medicine [facility] Services [facility] I spent 45 minutes coordinating care for this patient's discharge, of which 30 minutes were spent [id number] with the patient as well as with [...] about new lisinopril. Diabetes education provided by tobacco educator Liz BRYANT. Pt reports he has all DM supplies [...] | | | 08 | | | (RUSS LANDERSINE | physician | | | | | | INSULIN) 1 mL 31 x | | | | | | | 5/16" | | | | | | | [...] tablet by | 100 | 0 | 08/27/20 | | | mg oral tablet | [...] is stating desire to establish with an Record Retrieval Specialist. 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 Pt uses insulin syringe and [...] home. States willingness to come back to [facility] for endocrinology care, lives in [facility]. Hypoglycemia: reports 1-2 occurrences per week, [...] steven. Pt expresses interest in establishing with front desk supervisor here at [facility], and is willing to review/discuss further insulin pumps with endocrinology team. Informed pt that insulin pump does not take away the work (still need to check BG levels an d count carbs and give bolus doses) Recommendations 1. Encourage pt to attend support group 2. Encourage improving DM self management and care 3. Refer to [facility] diabetes center for endocrinology care 4. Refer to para educator in diabetes center for updating carb [...] LD, RN, CDE Inpatient Diabetes Education Pager: [phone] Eunice Rich MD - 08/26/2015 9:03 AM PST Internal Medicine Clinical Hospitalist Service Progress Note ID/CC: Brooks Marquez (Keith) is a 24 year old man with poorly controlled type 1 diabetes trent litus (HgbA1c in 06/2015 of 12.5%) here with diabetic ketoacidosis in setting of impaired in sulin absorption due to subcutaneous scar tissue with concurrent lactic acidosis (now [facility] ed), no clear infectious etiology [...] No new imaging Assessment and Plan Brooks Marquez (Keith) is a 24 year [...] chronic pain. - gastric emptying study for 08/27 AM as patient with poor follow up [...] full code EUNICE PARADA MD Pager - [phone] Platform Mill Supervisorfudge candy maker Clinical and Medicine [facility] Services [facility] [place] I spent 40 minutes zouj-qm-toji with the patient as well as with [...] 2019 | Encounter | | MD [address] | | | | | | [address] [place], | | | | | | [place] [address] | | | | | | [phone] | | | | | | | [...] | | | | | | [place] [address] | | | | | | [phone] | | | | | | | | +--------+ + + + + | 09/13/ | Office | Hematology & | Rodney, | | | 2018 | Visit | Oncology | MD Shwetha [address] | | | | | | [place], | | | | | | [place] [address] | | | | | | [phone] | | | | | | | | +--------+ + + + + | 01/24/ | Office | Surgery | Neri Steven MD | | | 2019 | Visit | | [address] | | | | | | [place], | | | | | | [place] [address] | | | | | | [phone] | | | | | | | [...] + + documented in this encounter Results GA GASTRIC EMPTYING STUDY (08/27/2015 2:13 PM PST) [...] (Ref: | | | | | | Toagapito G, et all. Am J | | [...] | | + +---------+ + + | [facility] DEPARTMENT OF | | | | | [...] VERDE | [address] | [place], [place] | | | TANJA HAY OF ANNA | [address] | [address] | | | TESTS | | | | + + + + + CAPILLARY BLOOD GLUCOSE (NO CHG), [place] (08/27/2015 11:17 AM PST) + +---------+ + [...] AMMON | [address] | [place], [place] | | | TANJA HAY OF ANNA | [facility] | [address] | | | TESTS | | | [...] (H) | 60 - 99 mg/dL | [facility] - | | | GLUCOSE, [...] VERDE | [address] | [place], [place] | | | SATNAM POINT OF CARE | [address] | [address] | | | TESTS | | | [...] | | | LABORATORY | | | NAMIBIAN | | | SERVICES, | | | [...] | + + + + + | [facility] LABORATORY | [address] | [place] [address] | | | SERVICES, CORE | ZENA [...] 97 | 60 - 99 mg/dL | [facility] - | | | GLUCOSE, [...] VERDE | [address] | [place], [place] | | | TANJA HAY OF CARE | [address] | [address] | | | TESTS | | | [...] MARQUAM | [address] | [place], [place] | | | TANJA HAY OF ANNA | [address] | [address] | | | TESTS | | | [...] MARRADHAAM | [address] | [place], [place] | | | SATNAM POINT OF CARE | [address] | [address] | | | TESTS | | | [...] (L) | 60 - 99 mg/dL | [facility] - | | | GLUCOSE, [...] VERDE | [address] | [place], [place] | | | TANJA HAY OF CARE | [address] | [address] | | | TESTS | | | [...] MARQUAM | [address] | [place], [place] | | | TANJA HAY OF CARE | [address] | [address] | | | TESTS | | | [...] MARRADHAAM | [address] | [place], [place] | | | TANJA HAY OF CARE | [address] | [address] | | | TESTS | | | [...] (H) | 60 - 99 mg/dL | [facility] - | | | GLUCOSE, [...] VERDE | [address] | [place], [place] | | | TANJA HAY OF CARE | [address] | [address] | | | TESTS | | | [...] MARQUAM | [address] | [place], [place] | | | TANJA HAY OF CARE | [address] | [address] | | | TESTS | | | [...] AVELINAAM | [address] | [place], [place] | | | TANJA HAY OF CARE | [address] | [address] | | | TESTS | | | [...] (H) | 60 - 99 mg/dL | [facility] - | | | GLUCOSE, [...] VERDE | [address] | [place], [place] | | | TANJA HAY OF CARE | [address] | [address] | | | TESTS | | | [...] MARQUAM | [address] | [place], [place] | | | TANJA HAY OF CARE | [address] | [address] | | | TESTS | | | [...] | | | LABORATORY | | | NAMIBIAN | | | SERVICES, | | | [...] | + + + + + | [facility] | [address] | [place] [address] | | | SERVICES, CORE | ZENA [...] MARQUAM | [address] | [place], [place] | | | SATNAM POINT OF CARE | [address] | [address] | | | TESTS | | | [...] MARQUAM | [address] | [place], [place] | | | SATNAM POINT OF CARE | [address] | [address] | | | TESTS | | | [...] + + + | VERITO VERDE | [address] | [place], [place] | | | TANJA HAY OF ANNA | [address] | [address] | | | TESTS | | | [...] MARQUAM | [address] | [place], [place] | | | SATNAM POINT OF CARE | [address] | [address] | | | TESTS | | | [...] MARQUAM | [address] | [place], [place] | | | SATNAM POINT OF CARE | [address] | [address] | | | TESTS | | | [...] VERDE | [address] | [place], [place] | | | TANJA HAY OF CARE | [address] | [address] | | | TESTS | | | [...] MARQUAM | [address] | [place], [place] | | | SATNAM POINT OF CARE | [address] | [address] | | | TESTS | | | [...] + | [facility] | [address] | [place], [place] | | | HERON POINT OF CARE | [address] | [address] | | | TESTS | | | [...] | | | LABORATORY | | | NAMIBIAN | | | SERVICES, | | | [...] the MDRD equation recommended by the | [facility] | | National Kidney Disease Education Program. [...] [facility] | [address] | [place] [address] | | | SERVICES, CORE | PARK [...] [facility] | [address] | [place] [address] | | | SERVICESZOEY | [address] | | | + [...] MARQUAM | [address] | [place], [place] | | | TANJA HAY OF CARE | [facility] | [address] | | | TESTS | | | [...] VERDE | [address] | [place], [place] | | | TANJA HAY OF CARE | [address] | [address] | | | TESTS | | | [...] MARQUAM | [address] | [place], [place] | | | TANJA HAY OF ANNA | [address] | [address] | | | TESTS | | | [...] AMMON | [address] | [place], [place] | | | SATNAM POINT OF [facility] | [address] | [address] | | | TESTS | | | [...] activity: 50-100 | | | mg/dLDepression of SLITTER SCORER CUT OFF OPERATOR: >100 mg/dLFatalities reported: >400 mg/dL | | | Acetone, Methanol and Isopropanol:<5 mg/dL: Reported as Not | | | Detected<10 mg/dL but >5 mg/dL: Reported as <10 mg/dL>10 mg/dL: | | | Reported as measured numeric value Test performed by: [facility] | | | [facility] [address] [address] | | |<5 mg/dL: Reported as Not Detected | | |<10 mg/dL but >5 mg/dL: Reported as <10 mg/dL | | |>10 mg/dL: Reported as measured numeric value | | | | | |Test performed by: | | |[facility] | | |[address] | | |[place] [address] | | + + + + + [...] VERDE | [address] | [place], [place] | | | TANJA HAY OF ANNA | [facility] | [address] | | | TESTS | | | [...] [facility] | [address] | [place] [address] | | | SERVICES, CORE | PARK [...] | | | LABORATORY | | | NAMIBIAN | | | SERVICES, | | | [...] the MDRD equation recommended by the | [facility] | | National Kidney Disease Education Program. [...] [facility] | [address] | [place] [address] | | | SERVICES, CORE | PARK [...] [facility] | [address] | [place] [address] | | | SERVICES, ZOEY | ZENA [...] MARQUAM | [address] | [place], [place] | | | SATNAM POINT OF CARE | [address] | [address] | | | TESTS | | | [...] + + + | VERITO VERDE | [address] | [place], [place] | | | TANJA HAY OF CARE | [address] | [address] | | | TESTS | | | | + + + + + CAPILLARY BLOOD GLUCOSE (NO CHG) POC (08/26/2015 1:29 AM PST) + +---------+ [...] MARQUAM | [address] | [place], [place] | | | SATNAM POINT OF CARE | [address] | [address] | | | TESTS | | | [...] + | [facility] | [address] | [place], [place] | | | SATNAM POINT OF CARE | [address] | [address] | | | TESTS | | | [...] VERDE | [address] | [place], [place] | | | SATNAM POINT OF CARE | [address] | [address] | | | TESTS | | | [...] | + + + + + | [facility] | [address] | [place] [address] | | | SERVICES, CORE | ZENA [...] | + + + + + | [facility] | [address] | [place] [address] | | | SERVICES, CORE | PARK [...] | + + + + + | [facility] | [address] | [place] [address] | | | SERVICES, CORE | PARK [...] + | [facility] | [address] | [place], [place] | | | TANJA HAY OF CARE | [address] | [address] | | | TESTS | | | [...] AMMON | [address] | [place], [place] | | | TANJA HAY OF ANNA | [address] | [address] | | | TESTS | | | [...] + + + + + + | [facility] | 470 | ms | [facility] [...] | + + + + + | [facility] | [address] | [place], [place] | | | CARDIOLOGY | [address] | [address] | | + + + + + RAINBOW HOLD TUBE - RED TOP (08/25/2015 9:33 PM PST) + + | Specimen | + + | Blood - Blood | | (substance) | + + + + + + + | Performing | Address | City/State/Zipcode | Phone Number | | Organization | | | | + + + + + | [facility] | [address] | [place] [address] | | | SERVICES, CORE | ZENA [...] [facility] | [address] | [place] [address] | | | SERVICES, CORE | PARK [...] + | [facility] | [address] | [place] [address] | | | SERVICES, CORE | ZENA [...] | + + + + + | [facility] | [address] | [place] [address] | | | YOUSIF, | [address] | | | | [...] | | | LABORATORY | | | NAMIBIAN | | | SERVICES, | | | [...] | + + + + + | [facility] | [address] | [place] [address] | | | SERVICES, CORE | ZENA [...] [facility] | [address] | [place] [address] | | | SERVICES, CORE | PARK [...] [facility] | [address] | [place] [address] | | | YOUSIF, ZOEY | [address] | | | [...] | + + + + + | [facility] | [address] | [place] [address] | | | SERVICES, CORE | ZENA [...] (AA) | 60 - 99 mg/dL | [facility] - | | | GLUCOSE, [...] VERDE | [address] | [place], [place] | | | TANJA HAY OF CARE | [address] | [address] | | | TESTS | | | | + + + + + ED INFORMATION EXCHANGE (08/25/2015 9:25 PM PST) + + + + + + | Component | Value | Ref Range | Performed | Pathologist | | | | | At | Signature | + + + + + + | [facility]UDY PID | [id number] | | [facility] | | | | [id number] | | MEDICAL | | | | [...] | ---- | | | 08/25/2015 21:25 [facility] [place] | | | Emergency [address]. Abdominal Pain 08/24/2015 16:44 | | | [facility] Emergency -Abd Pain | | | | | | -Epigastric pain | | | | | | -Cyclical vomiting, intractable | | | | | | -Hyperglycemia, unspecified | | | | | | -Abdominal Pain 08/18/2015 | | | 17:23 [facility] Emergency | | | -Gastroparesis | | [...] -Abdominal Pain 08/09/2015 12:53 | | | [facility] Emergency | | | -Abdominal Pain | | | | | | -Generalized abdominal pain | | | | | | -abd pain | | | -Vomiting | | | | | | -Cyclical vomiting, | | | intractable 08/01/2015 20:43 [facility] | | | Hospital Emergency -Cyclical vomiting, intractable | | | | | | -vomiting abd pain | | | | | | -Hyperglycemia | | | | | | -Abdominal Pain | | | | | | -Generalized abdominal pain | | | | | | -Gastroparesis 07/26/2015 16:13 [facility] | | | [facility] Emergency -vomiting, pain, diabetic | | | | | | -Cyclical vomiting, not | | | intractable | | | -Vomiting | | | 05/30/2015 17:01 [facility] | | | Emergency -Abdominal Pain | | | | | | -Finger Injury | | | -abd | | | pain 05/29/2015 21:54 [facility] | | | Emergency -Gangrene | | | | | | -diabetic, blood sugars, abd pain | | | | | | -Abdominal Pain | | | | | | -Nausea with vomiting | | | | | | -Abdominal pain, unspecified site | | | | | | -Gastroparesis ED VISIT COUNT (1 YR.) Visits | | | Location ------ --------- 11 [facility] | | | [facility] 1 [facility] | | | [facility] 1 [facility] 1 | | | [facility] 14 Total Note: | | | Visits indicate total known visits. | | | | | | --- | | + + + + + + + + | Performing | Address | City/State/Zipcode | Phone Number | | Organization | | | | + + + + + | [facility] | [address], | [place], [place] | [phone] | | [employer] | [address] | [address] | | + + + + + [...] | | | | at 0430, Until 08/26/15 at | | | | | | [...]
--- OUTSIDE RECORDS SUMMARY | ~2019-08-28 | XMS | Encounter Summary ---
Demographics + + + | Address | [address] | | | [place] [address] | + + + | Home Phone [...] Samantha Ramos | ECON | [address] | | | | | [place] | | | | | [address] | | + + + + + Care Team Providers + +------+ + | Care Bellhop Captain Name | Role | Phone | + [...] bone and | [address] | [address] [place], | | | | | articular | [place], [place] | [place] | | | | | cartilage | [address] | [address] | | | | | Loose body | Phone: | Phone: | | | | | in upper arm | [phone] | [phone] | | | | | joint | Fax: | Fax: | | | | | Procedures | [phone] | [phone] | | | | | CONSULT TO | | | | | | | [facility] | | | | | | | EXPLORE | | | | | | | ELBOW JOINT | | | | | | | [facility] B[facility] | | | | | | [...] | | 2005 | Visit | [facility] [address] | [address] | Juvenile, [facility] | | | | [address] | [facility] [address] | Humeri; 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 The patient smokes half a pack [...] in this encoun ter Plan of Treatment +--------+ + + + + | Date | Type | Specialty | Care Team | Description | +--------+ + + + + | 09/03/ | Hospital | | Greg Mathis | | | 2019 | Encounter | | MD [address] | | | | | [address] [place], | | | | | | [place] [address] | | | | | | [phone] | | | | | | | | +--------+ + + + + | 09/03/ | Appointment | Procedural Care Unit | | | | 2019 | | | | | +--------+ + + + + | 09/03/ | Appointment | Gastroenterology | Greg Mathis | | | 2018 | | | MD Harris [address] | | | | | | [place], | | | | | | [place] [address] | | | | | | [phone] | | | | | | | | +--------+ + + + + | 09/13/ | Office | Hematology & | Rodney | | | 2018 | Visit | Oncology | MD Nabeel [address] | | | | | | [place], | | | | | | [place] [address] | | | | | | [phone] | | | | | | | | +--------+ + + + + | 01/24/ | Office | Surgery | Neri Steven MD | | | 2019 | Visit | | [address] | | | | | | [place], | | | | | | [place] [address] | | | | | | [phone] | | | | | | | [...]
--- OUTSIDE RECORDS SUMMARY | ~2019-08-28 | XMS | Encounter Summary ---
Demographics + + + | Address | [address] | | | [place] [address] | + + + | Home Phone | | + + + | Preferred Language | Unknown | + + + | Marital Status | Single | + + + | Synagogue Affiliation | CAT | + + + | Race | White | + + + | Ethnic Group | Not or | + + + Author + + + | Author | [facility] | + + + | Organization | [facility] | + + + | Address | Unknown | + + + | Phone | Unavailable | + + + Support + + + + + | Name | Relationship | Address | Phone | + + + + + | Samantha Ramos | ECON | [address] # | | | | | [place] | | | | | [address] | | + + + + + Care Team Providers + +------+ + | Care Svp Name | Role | Phone | + [...] | | | | | mellitus | [address] | [facility] | | | | | ([facility]) | Phone: | [address] | | | | | Procedures | [phone] | [place], | | | | | CONSULT TO | Fax: | [place] [address] | | | | | GI PROCEDURE | [phone] | Phone: | | | | | UNIT: EGD | | [phone] | | | | | | | Fax: | | | | | | | [phone] | + +--------+ + + + + Encounter Details +--------+ + + + + | Date | Type | Department | Care Team | Description | +--------+ + + + + | 08/16/ | Diabetes Specialist | Digestive Health | Beth Mondragon, | Diabetic | | 2019 | | [facility] [address] | ANP [address] | gastroparesis | | | | [address] | [address] | associated with type | | | | Mailcode: Center | [place], [place] | 1 diabetes mellitus | | | | for [facility] and | [address] | ([facility]) (Primary Dx) | | | | [facility] 2 | [phone] | | | | | [place], [place] | | | | | | [address] | | | | | | [phone] | | | +--------+ + + + [...] 2018 | Encounter | | MD Harris [address] | | | | | | [place] | | | | | | [place] [address] | | | | | | [phone] | | | | | | | [...] | | | | | | [place] [address] | | | | | | [phone] | | | | | | | | +--------+ + + + + | 09/13/ | Office | Hematology & | Rodney, | | | 2018 | Visit | Oncology | MD Nabeel [address] | | | | | | [place], | | | | | | [place] [address] | | | | | | [phone] | | | | | | | | +--------+ + + + + | 01/24/ | Office | Surgery | Neri Steven MD | | | 2019 | Visit | | [address] | | | | | | [place], | | | | | | [place] [address] | | | | | | [phone] | | | | | | | | +--------+ + + + + documented as of this encounter Visit Diagnoses + + | Diagnosis | + + | Diabetic gastroparesis associated with type 1 diabetes mellitus (HCC) - Primary | + + documented in this encounter"
--- OUTSIDE RECORDS SUMMARY | ~2019-08-28 | XMS | Encounter Summary ---
Demographics + + + | Address | [address] | | | [place] [address] | + + + | Home Phone | | + + + | Preferred Language | Unknown | + + + | Marital Status | Single | + + + | Restoration Affiliation | CAT | + + + [...] Samantha Ramos | ECON | [address] # | | | | | [place] | | | | | [address] | | + + + + + Care Team Providers + +------+ + | Care Ged Instructor Name | Role | Phone | + +------+ + PCP | Unavailable | + +------+ + Encounter Details +--------+ + + + + | Date | Type | Department | Care Team | Description | +--------+ + + + + | 08/27/ | Office | [facility] | Clinic, Pediatric | Progress Note | | 2005 | Visit-Trans | AUTO DAMAGE ESTIMATOR | Endocrinology | | | | cribed [...] as of this encounter Progress Notes Interface, Sawmill Equipment Operator In - 10/18/2005 10:01 PM PST [id number] MARQUEZ RAYMOND BR[facility] Date: 08/27/2005 [...] the school week, his father lives in [place], and apparently the school is better and [...] was 56. Diet: Brooks is on a ymdiymrvzfsg-xy-lzjqsim ratio. He has had dietary education about [...] sites. Assessment: Brooks is a 14-year and 14-ymfeo-gsb boy with type 1 diabetes, who has poor control although it is somewhat improved from previously. He is relatively noncompliant with his diabetes. I have made the following recommendations: 1. I have asked the family to review carbohydrate counting with our legal recovery specialist today. 2. I have recommended to Brooks [...] in 4 months' time. Ashanti Roque M.D. Laundry Machine Operator Pediatric Endocrinology / [id number] / [id number] / [id number] / 74409 cc: Neri Mojica [address] [place] [address]. Electronically signed by Ashanti Roque 09-10-2005 04:52:54 [...] | | | | | | [place] [address] | | | | | | [phone] | | | | | | | [...] | | | | | | [place] [address] | | | | | | [phone] | | | | | | | | +--------+ + + + + | 09/13/ | Office | Hematology & | Rodney, | | | 2019 | Visit | Oncology | MD Nabeel [address] | | | | | | [place], | | | | | | [place] [address] | | | | | | [phone] | | | | | | | | +--------+ + + + + | 01/24/ | Office | Surgery | Neri Steven MD | | | 2019 | Visit | | [address] | | | | | | [place] | | | | | | [place] [address] | | | | | | [phone] | | | | | | | | +--------+ + + + + documented as of this encounter Visit Diagnoses Not on filedocumented in this encounter"
--- OUTSIDE RECORDS SUMMARY | ~2019-08-28 | XMS | Encounter Summary ---
Demographics + + + | Address | [address] | | | [place] [address] | + + + | Home Phone [...] Samantha Ramos | ECON | [address] # | | | | | [place] | | | | | [address] | | + + + + + Care Team Providers + +------+ + | Care Strap Machine Operator Automatic Name | Role | Phone | + [...] | | [address] | | ([facility]ERLY [facility]) | | | | [place], | | | | | | [place] [address] | | | | | | [phone] | | | +--------+------+ + + + [...] | | | | | | [place] [address] | | | | | | [phone] | | | | | | | [...] | | | | | | [place] [address] | | | | | | [phone] | | | | | | | | +--------+ + + + + | 09/13/ | Office | Hematology & | Rodney, | | | 2018 | Visit | Oncology | MD Nabeel [address] | | | | | | [place], | | | | | | [place] [address] | | | | | | [phone] | | | | | | | | +--------+ + + + + | 01/24/ | Office | Surgery | Neri Steven MD | | | 2019 | Visit | | [address] | | | | | | [place], | | | | | | [place] [address] | | | | | | [phone] | | | | | | | [...] the MDRD equation recommended by the | [facility] | | National Kidney Disease Education [...] + + + + + | [facility] | [address] | [place] [address] | | | YOUSIF, ZOEY | [address] [...]
--- OUTSIDE RECORDS SUMMARY | ~2019-08-28 | XMS | Encounter Summary ---
Demographics + + + | Address | [address] | | | [place] [address] | + + + | Home Phone [...] | Gia Ramos | ECON | [address] | | | | | [place] | | | | | [address] | | + + + + + Care Team Providers + +------+ + | Care Processing Engineer Name | Role | Phone | [...] + + | 06/22/ | Telephone | [facility] | Winston Whitman MD | Other (Appointment | | 2019 | | NEPHROLOGY [place] | [address] [place] | reminder call) | | | | [address] [place] | [facility] [place] | | | | | [address] [place], [place] | [id number] | | | | | [address] | | | | | | [phone] | | | +--------+ + + + [...]
--- OUTSIDE RECORDS SUMMARY | ~2019-08-28 | XMS | Encounter Summary ---
Demographics + + + | Address | [address] | | | [place] [address] | + + + | Home Phone [...] Samantha Ramos | ECON | [address] # | | | | | [place] | | | | | [address] | | + + + + + Care Team Providers + +------+ + | Care Manager Environmental Health Name | Role | Phone | + [...] [address] | | | | | [place], [place] | [place], [place] | | | | | [address] | [address] | | | | | [phone] | [phone] | | | | | | | [...] 2019 | Encounter | | MD Harris [address] | | | | | | [place], | | | | | | [place] [address] | | | | | | [phone] | | | | | | | [...] | | | | | | [place] [address] | | | | | | [phone] | | | | | | | | +--------+ + + + + | 09/13/ | Office | Hematology & | Rodney | | | 2019 | Visit | Oncology | MD Leo Lees | | | | | | [place] | | | | | | [place] [address] | | | | | | [phone] | | | | | | | | +--------+ + + + + | 01/24/ | Office | Surgery | Neri Steven MD | | | 2019 | Visit | | [address] | | | | | | [place], | | | | | | [place] [address] | | | | | | [phone] | | | | | | | [...] | | | SERUM | performed by [place] | | | | | | [facility] | | | | | | [employer]. | | | | + + + + + + + + | Specimen | + + | | + + + + + + + | Performing | Address | City/State/Zipcode | Phone Number | | Organization | | | | + + + + + | [facility] | [address] | [place] [address] | | | LABORATORY | | | [...] Loy/maurizio | | | | | [facility] | | | | | | Laboratories. | | | | + + + + + + + + | Specimen | + + | | + + + + + + + | Performing | Address | City/State/Zipcode | Phone Number | | Organization | | | | + + + + + | [facility] | [address] | [place] [address] | | | LABORATORY | | | | + + + + + documented in this encounter Visit Diagnoses Not on filedocumented in this encounter"
--- OUTSIDE RECORDS SUMMARY | ~2019-08-28 | XMS | Encounter Summary ---
Demographics + + + | Address | [address] | | | [place] [address] | + + + | Home Phone | | + + + | Preferred Language | Unknown | + + + | Marital Status | Single | + + + | Catholic Affiliation | Unknown | + + + | Race | Unknown | + + + | Ethnic Group | Unknown | + + + Author + + + | Author | [facility] | | | and [place] | + + + | Organization | [facility] | | | and [place] | + + + | Address | Unknown | + + + | Phone | Unavailable | + + + Support + + + + + | Name | Relationship | Address | Phone | + + + + + | Gia Ramos | ECON | [address] | | | | | [place] | | | | | [address] | | + + + + + Care Team Providers + +------+ + | Care Editor Book Name | Role | Phone | + [...] | [address] [place] | [place], [address] | | | | | [address] [place], [place] | [place], [place] | | | | | [address] | [address] | | | | | [phone] | | | +--------+ + + + [...] 8:47 AM PDTReceived notice from [facility]. It states they have made several attempts to contact the patient an d he has not returned any of their calls. They will be discontinuing their efforts to contac t patient. document ed in this encounter Plan of Treatment Not on filedocumented as of this encounter Visit Diagnoses Not on filedocumented in this encounter"
--- OUTSIDE RECORDS SUMMARY | ~2019-08-28 | XMS | Encounter Summary ---
Demographics + + + | Address | [address] | | | [place] [address] | + + + | Home Phone | | + + + | Preferred Language | Unknown | + + + | Marital Status | Single | + + + | Adventism Affiliation | CAT | + + + [...] Samantha Ramos | ECON | [address] # | | | | | [place] | | | | | [address] | | + + + + + Care Team Providers + +------+ + | Care Metal Painter Name | Role | Phone | [...] | Activity | [address] | [address] | | | | | Perez Mailcode: [id number] | [address] | | | | | [place], [place] | [place], [place] | | | | | [address] | [address] | | | | | [phone] | [phone] | | | | | | | [...] 2019 | Encounter | | MD Harris [address] | | | | | | [place], | | | | | | [place] [address] | | | | | | [phone] | | | | | | | [...] | | | | | | [place] [address] | | | | | | [phone] | | | | | | | | +--------+ + + + + | 09/13/ | Office | Hematology & | Rodney | | | 2018 | Visit | Oncology | MD Leo Lees | | | | | | [place] | | | | | | [place] [address] | | | | | | [phone] | | | | | | | | +--------+ + + + + | 01/24/ | Office | Surgery | Neri Steven MD | | | 2019 | Visit | | [address] | | | | | | [place], | | | | | | [place] [address] | | | | | | [phone] | | | | | | | [...] + + | Performing | Address | City[facility]State[facility] | Phone Number | | Organization | | | | + + + + + | [facility] | [address] | [place] [address] | | | PATHOLOGY | [place]D | | | + + + + + | [facility] | [address] | [place] [address] | | | PATHOLOGY | [address] | | | + + + + + documented in this encounter Visit Diagnoses Not on filedocumented in this encounter"
--- OUTSIDE RECORDS SUMMARY | ~2019-08-28 | XMS | Encounter Summary ---
Demographics + + + | Address | [address] | | | [place] [address] | + + + | Home Phone | | + + + | Preferred Language | Unknown | + + + | Marital Status | Single | + + + | Sabianism Affiliation | Unknown | + + + [...] | Gia Ramos | ECON | [address] | | | | | [place] | | | | | [address] | | + + + + + Care Team Providers + +------+ + | Care Bus And Sys Integration Senior Manager Name | Role | Phone | + +------+ + | Erich Yates | PCP | | + +------+ + Encounter Details +--------+ + + + + | Date | Type | Department | Care Team | Description | +--------+ + + + + | 01/11/ | Orders Only | [facility] | Conversion | | | 2018 | | NEPHROLOGY [place] | Transaction, | | | | | [address] | Provider Unknown | | | | | [address] [place], [place] | | | | | | [address] | (Fax) | | | | | [phone] | | | +--------+ + + + [...]
--- OUTSIDE RECORDS SUMMARY | ~2019-08-28 | XMS | Encounter Summary ---
Demographics + + + | Address | [address] | | | [place] [address] | + + + | Home Phone [...] Samantha Ramos | ECON | [address] # | | | | | [place] | | | | | [address] | | + + + + + Care Team Providers + +------+ + | Care Corn Sheller Operator Name | Role | Phone | + +------+ + | Neri Mojica MD | PCP | | + +------+ + Encounter Details +--------+ + + + + | Date | Type | Department | Care Team | Description | +--------+ + + + + | 08/24/ | Document-Sc | UNKNOWN DEPARTMENT | Other, Faculty | | | 2012 | anned | [address] [facility] | [phone] | | | | | [address] | | | | | | [place], [place] | | | | | | [address] | | | +--------+ + + + [...] 2019 | Encounter | | MD Harris [address] | | | | | | [place] | | | | | | [place] [address] | | | | | | [phone] | | | | | | | [...] | | | | | | [place] [address] | | | | | | [phone] | | | | | | | | +--------+ + + + + | 09/13/ | Office | Hematology & | Rodney | | | 2018 | Visit | Oncology | MD Julia [address] | | | | | | [place] | | | | | | [place] [address] | | | | | | [phone] | | | | | | | | +--------+ + + + + | 01/24/ | Office | Surgery | Neri Steven MD | | | 2019 | Visit | | [address] | | | | | | [place], | | | | | | [place] [address] | | | | | | [phone] | | | | | | | | +--------+ + + + + documented as of this encounter Visit Diagnoses Not on filedocumented in this encounter"
--- OUTSIDE RECORDS SUMMARY | ~2019-08-28 | XMS | Clinical Summary ---
Demographics + + + | Address | [address] | | | [place] [address] | + + + | Home Phone | | + + + | Preferred Language | Unknown | + + + | Marital Status | Single | + + + | Taoism Affiliation | CAT | + + + [...] Samantha Ramos | ECON | [address] # | | | | | [place], [place] | | | | | [address] | | + + + + + Care Team Providers + +------+ + | Care Special Machine Operator Name | Role | Phone | + +------+ + | Erich Yates PA-C | PCP | | + +------+ + Source Comments [facility] is fully live on both [facility] Ambulatory and [facility] InPatient.[facility] Allergies + + + + + [...] + + +---------+------+------+-------+ | insulin lispro | Up to 50 units per | 30 mL | 11 | 12/2 | | Activ | | (HUMALOG) 100 | day in divided doses | | | 1/20 | | e | | unit/mL subcutaneous | as directed | | | 15 | | | | solution | | | | | | | + + + +---------+------+------+-------+ | promethazine 25 mg | Unwrap and [...] | + + + +---------+------+------+-------+ | hyoscyamine 0.125 | Place 1 tablet under | 60 | 1 | 10/1 | | Activ | | mg sublingual | tongue every four | tablet | | 0/20 | | e | | tablet, | hours as needed for | | | 19 | | | | sublingualIndication | diarrhea (or | | | | | | | s: Diabetic | abdominal pain). | | | | | | | gastroparesis (HCC), | | | | | | | | Abdominal pain, | | | | | | | | chronic, epigastric, | | | | | | | | Chronic diarrhea, | | | | | | | | Severe | | | | | | | | protein-calorie | | | | | | | | malnutrition (HCC) | | | | | | | + + + +---------+------+------+-------+ | sodium phosphates | Take 2 fleet enemas | 10 | 0 | 11/2 | | Activ | | 19-7 gram/118 mL | per rectum twice a | Bottle | | 10/15 | | e | | rectal enema | day, starting 2 days | | | 19 | | | | | prior to | | | | | | | | colonoscopy, and 2 | | | | | | | | more the morning of | | | | | | | | the colonoscopy | | | | | | + + + +---------+------+------+-------+ | Bisacodyl 5 mg | Take 1 to 4 tablets | 8 | 0 | 11/2 | | Activ | | oral | as tolerated 2 days | tablet | | 10/15 | | e | | tabletIndications: | prior to colonoscopy | | | 19 | | | | bowel evacuation | and repeat 1 day | | | | | | | | prior. Indications: | | | | | | | | bowel evacuation | | | | | | + + + +---------+------+------+-------+ | polyethylene | Mix 238g (14 | 238 g | 0 | 11/2 | | Activ | | glycol (MIRALAX) 17 | capfuls) with | | | 1/20 | | e | | gram/dose oral | gatorade 64 oz, and | | | 19 | | | | powderIndications: | begin drinking 2 | | | | | | | bowel evacuation | days prior to | | | | | | | | colonoscopy, repeat | | | | | | | | 1 day prior as | | | | | | | | tolerated. | | | | | | | | Indications: bowel | | | | | | | | evacuation | | | | | | + + + +---------+------+------+-------+ Active Problems + + + | Problem | Noted Date | + + + | Hyperglycemia due [...] mellitus | | + + + | Type 1 [...] + + + + | 08/16/ | Audio Recording Engineer | Surgery | Beth Mondragon, | Diabetic | | 2019 | | | ANP | gastroparesis | | | | | | associated with type | | | | | | 1 diabetes mellitus | | | | | | (HCC) (Primary Dx) | +--------+ + + + + | 08/01/ | Abstract | Surgery | Alison Holley, | Medical Records | | 2018 | | | MD | Review | +--------+ + + + + | 07/27/ | Office | Surgery | Alison Holley, | History of diabetic | | 2018 | Visit | | MD | gastroparesis | | | | | | (Primary Dx) | +--------+ + + + + | 07/27/ | Travel | | | | | 2018 | | | | | +--------+ + + + + | 07/24/ | Abstract | Gastroenterology | Lashawn Joy, | Medical Records | | 2018 | | | TREV[place] | Review | +--------+ + + + + | 07/24/ | Telephone | Gastroenterology | Lashawn Joy, | Evaluation of test | | 2018 | | | PARoopa | results | +--------+ + + + + | 07/23/ | Documentati | Gastroenterology | Lashawn Joy, | Lab Results | | 2018 | on | | PA-C | (multiple lab | | | | | | results) | +--------+ + + + + | 07/06/ | Transcribe | Gastroenterology | Transcribe | | | 2018 | Orders | | Martha Provider, | | | | | | | | +--------+ + + + + | 07/04/ | Audio Recording Engineer | Surgery | Neri Steven MD | Diabetic | | 2018 | | | | gastroparesis | | | | | | associated with type | | | | | | 1 diabetes mellitus | | | | | | (HCC) (Primary Dx) | +--------+ + + + + | 07/03/ | Telephone | Gastroenterology | Lashawn Joy, | Care Coordination | | 2018 | | | PA-C | (Local provider, | | | | | | local labs) | +--------+ + + + + | 07/02/ | Office | Gastroenterology | Lashawn Joy, | Diabetic | | 2018 | Visit | | TREVOR | gastroparesis (HCC) | | | | | | (Primary Dx); | | | | | | Chronic diarrhea | +--------+ + + + + | 07/02/ | Travel | | | | | 2018 | | [...] 2018 | Encounter | | MD Harris [address] | | | | | | [place], | | | | | | [place] [address] | | | | | | [phone] | | | | | | | | +--------+ + + + + | 09/03/ | Appointment | Procedural Care Unit | | | | 2018 | | | | | +--------+ + + + + | 09/03/ | Appointment | Gastroenterology | aAronshannoncristinGreg | | | 2018 | | | MD Harris [address] | | | | | | [place], | | | | | | [place] [address] | | | | | | [phone] | | | | | | | | +--------+ + + + + | 09/13/ | Office | Hematology & | Rodney, | | | 2018 | Visit | Oncology | MD Nabeel [address] | | | | | | [place], | | | | | | [place] [address] | | | | | | [phone] | | | | | | | | +--------+ + + + + | 01/24/ | Office | Surgery | Neri Steven MD | | | 2019 | Visit | | [address] | | | | | | [place], | | | | | | [place] [address] | | | | | | [phone] | | | | | | | [...] + + from Last 3 Months Results GIARDIA SCREEN EIA, STOOL (07/19/2019) + [...] [address] | [place], [place] | [phone] | | [place] | | | | [...] - | [address] | [place], [place] | [phone] | | [place] | | | | [...] [address] | [place] | [phone] | | [place] | | | | [...] [address] | [place], [place] | [phone] | | [place] | | | | [...] | + + + + + | [facility] | [address] | [place] [address] | | | SERVICES, CORE | ZENA [...] + | [facility] | [address] | [place] [address] | | | [place] | | | [...] | | | LABORATORY | | | [facility] | | | SERVICES, | | | [...] MDRD equation recommended by the National | [facility] | | Kidney Disease Education Program. Estimated [...] | + + + + + | [facility] | [address] | [place] [address] | | | SERVICES, CORE | PARK [...] Male | 50 - 200 ng/mL | DESU | | | | and Female >18 [...] | + + + + + | [facility] | [address] | [place] [address] | | | [place] [address] | [address] | | | + + + + + from [...] | | | + +--------+ +--------+-------+---------+--------+ | AIR BREAKER OPERATOR MEDICAID | AIR BREAKER OPERATOR | xxxxxxxx | 04/03/20 | | | [...] Alin | al/Fam | | 1991 | [phone] | [place] | | | lucian | | | [address] ([place]) | [address] | + +--------+ +--------+ + + Advance [...]
--- OUTSIDE RECORDS SUMMARY | ~2019-08-28 | XMS | Encounter Summary ---
Demographics + + + | Address | [address] | | | [place] [address] | + + + | Home Phone [...] Samantha Ramos | ECON | [address] # | | | | | [place] | | | | | [address] | | + + + + + Care Team Providers + +------+ + | Care Sausage Wrapper Name | Role | Phone | + +------+ + | Erich Yates PA-C | PCP | | + +------+ + Encounter Details +--------+ + + + + | Date | Type | Department | Care Team | Description | +--------+ + + + + | 11/02/ | Ancillary | Registration [address] | Ashanti Roque, | | | 2006 | Registratio | [address] | [address] | | | | n | Perez Mailcode: RPB07 | [address] | | | | | [place], [place] | [place], [place] | | | | | [address] | [address] | | | | | [phone] | [phone] | | | | | | | [...] 2019 | Encounter | | MD Harris [address] | | | | | | [place], | | | | | | [place] [address] | | | | | | [phone] | | | | | | | [...] | | | | | | [place] [address] | | | | | | [phone] | | | | | | | | +--------+ + + + + | 09/13/ | Office | Hematology & | Rodney | | | 2019 | Visit | Oncology | MD Leo Lees | | | | | | [place] | | | | | | [place] [address] | | | | | | [phone] | | | | | | | | +--------+ + + + + | 01/24/ | Office | Surgery | Neri Steven MD | | | 2020 | Visit | | [address] | | | | | | [place], | | | | | | [place] [address] | | | | | | [phone] | | | | | | | | +--------+ + + + + documented as of this encounter Procedures + +--------+ + + + | Procedure Name | Priori | Date/Time | Associated Diagnosis | Comments | | | ty | | | | + +--------+ + + + | MICROALBUMIN/CREATIN | Routin | 11/02/2006 | | Results for this | | INE RATIO (RANDOM | e | 4:19 PM | | procedure are in the | | URINE) | | PST | | results section. | + +--------+ + + + documented in this encounter Results MICROALBUMIN/CREATININE RATIO (RANDOM URINE) (11/02/2006 4:19 PM PST) + + + + + + | Component | Value | Ref Range | Performed | Pathologist | | | | | At | Signature | + + + + + + | MICROALBUMI | 252 (H)Comment: | <21 mg/L | | | | N, | Test performed by [facility] | | | | | URINE-CARLOS | [facility] | | | | | M | Laboratories. | | | | + + + + + + | URINE | 180.0 | mg/dL | | | | CREATININE | | | | | + + + + + + | MICROALBUMI | 140 (H) | <31 mg/g | | | | N/CREAT | | | | | | RATIO | | | | | + + + + + + + + | Specimen | + + | | + + + + + + + | Performing | Address | City/State/Zipcode | Phone Number | | Organization | | | | + + + + + | [facility] | [address] | [place] [address] | | | LABORATORY | | | | + + + + + documented in this encounter Visit Diagnoses Not on filedocumented in this encounter"
--- OUTSIDE RECORDS SUMMARY | ~2019-08-28 | XMS | Encounter Summary ---
Demographics + + + | Address | [address] | | | [place] [address] | + + + | Home Phone [...] Gia Ramos | ECON | [address] | | | | | [place] | | | | | [address] | | + + + + + Care Team Providers + +------+ + | Care Commercial Accountant Name | Role | Phone | + +------+ + | Erich Yates | PCP | | + +------+ + Encounter Details +--------+ + + + + | Date | Type | Department | Care Team | Description | +--------+ + + + + | 01/11/ | Orders Only | [facility] | Winston Whitman MD | | | 2019 | | NEPRHOLOGY [place] | [address] | | | | | [address] | [address] [place], [place] | | | | | [address] [place], [place] | [address] | | | | | [address] | | | | | | [phone] | | | +--------+ + + + [...]
--- OUTSIDE RECORDS SUMMARY | ~2019-08-28 | XMS | Encounter Summary ---
Demographics + + + | Address | [address] | | | [place] [address] | + + + | Home Phone [...] + + | Author | [facility] | | | and [place] | + + + | Organization | [facility] | | | and [place] | + + + | Address | Unknown | + + + | Phone | Unavailable | + + + Support + + + + + | Name | Relationship | Address | Phone | + + + + + | Gia Ramos | ECON | [address] | | | | | [place] | | | | | [address] | | + + + + + Care Team Providers + +------+ + | Care Nozzle Tender Name | Role | Phone | + +------+ + | Erich Yates | PCP | | + +------+ + Encounter Details +--------+ + + + + | Date | Type | Department | Care Team | Description | +--------+ + + + + | 03/16/ | Orders Only | [facility] | Winston Whitman MD | | | 2018 | | NEPHROLOGY [place] | [address] [place] | | | | | [address] [place] | [address] [place], [place] | | | | | [address] [place], [place] | [address] | | | | | [address] | | | | | | [phone] | | | +--------+ + + + [...] | | | LAB | | | [facility] | | | | | + + [...]
--- OUTSIDE RECORDS SUMMARY | ~2019-08-28 | XMS | Encounter Summary ---
Demographics + + + | Address | [address] | | | [place] [address] | + + + | Home Phone [...] Samantha Ramos | ECON | [address] # | | | | | [place] | | | | | [address] | | + + + + + Care Team Providers + +------+ + | Care Service Sprinkler Helper Name | Role | Phone | [...] bone and | [place] | Rd [place], | | | | | articular | [place], [place] | [place] | | | | | cartilage | [address] | [address] | | | | | Loose body | Phone: | Phone: | | | | | in upper arm | [phone] | [phone] | | | | | joint | Fax: | Fax: | | | | | Procedures | [phone] | [phone] | | | | | CONSULT TO | | | | | | | [place] | | | | | | | EXPLORE | | | | | | | ELBOW JOINT | | | | | | | [place] BONE | | | | | | [...] | | | [address] | [facility] [address] | Humeri; 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 The patient smokes half a pack [...] | | | | | [place], | | | | | | [place] [address] | | | | | | [phone] | | | | | | | [...] | | | | | | [place] [address] | | | | | | [phone] | | | | | | | | +--------+ + + + + | 09/13/ | Office | Hematology & | Rodney | | | 2018 | Visit | Oncology | MD Nabeel [address] | | | | | | [place], | | | | | | [place] [address] | | | | | | [phone] | | | | | | | | +--------+ + + + + | 01/24/ | Office | Surgery | Neri Steven MD | | | 2019 | Visit | | [address] | | | | | | [place], | | | | | | [place] [address] | | | | | | [phone] | | | | | | | [...]
--- OUTSIDE RECORDS SUMMARY | ~2019-08-28 | XMS | Encounter Summary ---
Demographics + + + | Address | [address] | | | [place] [address] | + + + | Home Phone [...] Samantha Ramos | ECON | [address] # | | | | | [place] | | | | | [address] | | + + + + + Care Team Providers + +------+ + | Care After School Program Assistant Name | Role | Phone | [...] + +---------+ + + + + | New Request | Other | Hematology & | Diagnoses | Rufino, | Hem Faculty | | | | Oncology | Anemia, | Lashawn Tan, | [address] | | | | | unspecified | [address] | [address] | | | | | type | [address] | Mailcode: | | | | | Procedures | [facility] | [facility] | | | | | CONSULT TO | Rd | Health and | | | | | HEMATOLOGY / | [place], [place] | Healing, | | | | | ONCOLOGY | [address] | [address] | | | | | | Phone: | [place], [place] | | | | | | [phone] | [address] | | | | | | Fax: | Phone: | | | | | | [phone] | [phone] | | | | | | | Fax: | | | | | | | [phone] | + +---------+ + + + + PROC - Dept/Practice Procedure (Routine) + +--------+ + + + + | Status | Reason | Specialty | Diagnoses / | Referred By | Referred To | | | | | Procedures | Contact | Contact | + +--------+ + + + + | Pending | | Gastroenterol | Diagnoses | Kading, | Gas Endo | | Review | | ogy | Diabetic | Lashawn Tan, | [address] | | | | | gastroparesi | PA-C [address] | | | | | s (HCC) | [address] | Mailcode: | | | | | Abdominal | [facility] | [address] | | | | | pain, | Rd | for Health | | | | | chronic, | [place], [place] | and Healing, | | | | | epigastric | [address] | [address] | | | | | Chronic | Phone: | [place], [place] | | | | | diarrhea | [phone] | [address] | | | | | Severe | Fax: | Phone: | | | | | protein-judy | [phone] | [phone] | | | | | danyel | | Fax: | | | | | malnutrition | | [phone] | | | | | (HCC) | | | | | | | Procedures | | | | | | | CONSULT TO | | | | | | | GI PROCEDURE | | | | | | | UNIT: EGD W | | | | | | | COLONOSCOPY | | | + +--------+ + + [...] Care Coordination | | 2019 | | [place] [facility] 2005 | PA-C [address] | (Local provider, | | | | [address] | [address] | local labs) | | | | Mailcode: [place] | [place], [place] | | | | | [facility] and | [address] | | | | | [facility] | [phone] | | | | | [place], [place] | | | | | | [address] | | | | | | [phone] | | | +--------+ + + + [...] | | | | | | [place] [address] | | | | | | [phone] | | | | | | | [...] | | | | | | [place] [address] | | | | | | [phone] | | | | | | | | +--------+ + + + + | 09/13/ | Office | Hematology & | Rodney, | | | 2018 | Visit | Oncology | MD Leo Lees | | | | | | [place] | | | | | | [place] [address] | | | | | | [phone] | | | | | | | | +--------+ + + + + | 01/24/ | Office | Surgery | Neri Steven MD | | | 2019 | Visit | | [address] | | | | | | [place], | | | | | | [place] [address] | | | | | | [phone] | | | | | | | [...]
--- OUTSIDE RECORDS SUMMARY | ~2019-08-28 | XMS | Encounter Summary ---
Demographics + + + | Address | [address] | | | [place] [address] | + + + | Home Phone [...] | Samantha Ramos | ECON | [address] # | | | | | [place] | | | | | [address] | | + + + + + Care Team Providers + +------+ + | Care Sign Language Instructor Name | Role | Phone | [...] Rd | | | | | [facility] | [place], [place] | | | | | [address] | [address] | | | | | [place] Mailcode: | [phone] | | | | | [address] | | | | | | [place], [place] | | | | | | [address] | | | | | | [phone] | | | +--------+ + + + [...] 2019 | Encounter | | MD Harris [address] | | | | | | [place], | | | | | | [place] [address] | | | | | | [phone] | | | | | | | [...] | | | | | | [place] [address] | | | | | | [phone] | | | | | | | | +--------+ + + + + | 09/13/ | Office | Hematology & | Rodney | | | 2018 | Visit | Oncology | MD Leo Lees | | | | | | [place] | | | | | | [place] [address] | | | | | | [phone] | | | | | | | | +--------+ + + + + | 01/24/ | Office | Surgery | Neri Steven MD | | | 2019 | Visit | | [address] | | | | | | [place], | | | | | | [place] [address] | | | | | | [phone] | | | | | | | [...] + + | VERITO [facility] | [address] | [place], [place] | | | [facility] | [facility] | [address] | | | TESTS | | | | + + + + + | [facility] | [address] | [place], [place] | | | TESTS | [facility] | [address] | | + + + + + documented in this encounter Visit Diagnoses Not on filedocumented in this encounter"
--- OUTSIDE RECORDS SUMMARY | ~2019-08-28 | XMS | Encounter Summary ---
Demographics + + + | Address | [address] | | | [place] [address] | + + + | Home Phone | | + + + | Preferred Language | Unknown | + + + | Marital Status | Single | + + + | Temple Affiliation | CAT | + + + [...] Samantha Ramos | ECON | [address] # | | | | | [place] | | | | | [address] | | + + + + + Care Team Providers + +------+ + | Care Transportation Program Director Name | Role | Phone | [...] bone and | [place] | Rd [place], | | | | | articular | [place], [place] | [place] | | | | | cartilage | [address] | [address] | | | | | Loose body | Phone: | Phone: | | | | | in upper arm | [phone] | [phone] | | | | | joint | Fax: | Fax: | | | | | Procedures | [phone] | [phone] | | | | | CONSULT TO | | | | | | | [place] | | | | | | | EXPLORE | | | | | | | ELBOW JOINT | | | | | | | [place] BONE | | | | | | [...] | | | [address] | [facility] [address] | Humeri; 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 The patient smokes half a pack [...] | | | | | [place], | | | | | | [place] [address] | | | | | | [phone] | | | | | | | [...] | | | | | | [place] [address] | | | | | | [phone] | | | | | | | | +--------+ + + + + | 09/13/ | Office | Hematology & | Rodney | | | 2018 | Visit | Oncology | MD Nabeel [address] | | | | | | [place], | | | | | | [place] [address] | | | | | | [phone] | | | | | | | | +--------+ + + + + | 01/24/ | Office | Surgery | Neri Steven MD | | | 2019 | Visit | | [address] | | | | | | [place], | | | | | | [place] [address] | | | | | | [phone] | | | | | | | [...]
--- OUTSIDE RECORDS SUMMARY | ~2019-08-28 | XMS | Encounter Summary ---
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
--- OUTSIDE RECORDS SUMMARY | ~2019-08-28 | XMS | Encounter Summary ---
Demographics + + + | Address | [address] | | | [place] [address] | + + + | Home Phone | | + + + | Preferred Language | Unknown | + + + | Marital Status | Single | + + + | Druze Affiliation | CAT | + + + [...] Samantha Ramos | ECON | [address] # | | | | | [place] | | | | | [address] | | + + + + + Care Team Providers + +------+ + | Care Box Maker Wood Name | Role | Phone | + [...] | | | | Mailcode: PV430 | [place], [place] | | | | | [facility] | [address] | | | | | [place], [place] | [phone] | | | | | [address] | | | | | | [phone] | | | +--------+ + + + [...] 2019 | Encounter | | MD Harris [address] | | | | | | [place] | | | | | | [place] [address] | | | | | | [phone] | | | | | | | [...] | | | | | | [place] [address] | | | | | | [phone] | | | | | | | | +--------+ + + + + | 09/13/ | Office | Hematology & | Rodney | | | 2019 | Visit | Oncology | MD Leo Lees | | | | | | [place] | | | | | | [place] [address] | | | | | | [phone] | | | | | | | | +--------+ + + + + | 01/24/ | Office | Surgery | Neri Steven MD | | | 2020 | Visit | | [address] | | | | | | [place], | | | | | | [place] [address] | | | | | | [phone] | | | | | | | [...]
--- OUTSIDE RECORDS SUMMARY | ~2019-08-28 | XMS | Encounter Summary ---
Demographics + + + | Address | [address] | | | [place] [address] | + + + | Home Phone | | + + + | Preferred Language | Unknown | + + + | Marital Status | Single | + + + | Presybeterian Affiliation | CAT | + + + [...] Samantha Ramos | ECON | [address] # | | | | | [place] | | | | | [address] | | + + + + + Care Team Providers + +------+ + | Care Air Twist Operator Name | Role | Phone | + +------+ + PCP | Unavailable | + +------+ + Encounter Details +--------+ + + + + | Date | Type | Department | Care Team | Description | +--------+ + + + + | 09/30/ | Office | [facility] | Clinic, Pediatric | Progress Note | | 2005 | Visit-Trans | PATIENT CASE MANAGER | Endocrinology | | | | cribed [...] as of this encounter Progress Notes Interface, Business Account Manager In - 04/25/2005 12:43 AM PDT [id number] NAHOMY RAYMOND BROOKS [facility] Date: 09/30/2004 [...] eats. DENISSE Carr, CNSD, LD AT / [id number] / [id number] / [id number] / documented i n this encounter Plan of Treatment +--------+ + + + + | Date | Type | Specialty | Care Team | Description | +--------+ + + + + | 09/03/ | Hospital | | Greg Mathis | | | 2019 | Encounter | | MD [address] | | | | | | [place], | | | | | | [place] [address] | | | | | | [phone] | | | | | | | [...] | | | | | | [place] [address] | | | | | | [phone] | | | | | | | | +--------+ + + + + | 09/13/ | Office | Hematology & | Rodney, | | | 2018 | Visit | Oncology | MD Nabeel [address] | | | | | | [place], | | | | | | [place] [address] | | | | | | [phone] | | | | | | | | +--------+ + + + + | 01/24/ | Office | Surgery | Neri Steven MD | | | 2019 | Visit | | [address] | | | | | | [place] | | | | | | [place] [address] | | | | | | [phone] | | | | | | | | +--------+ + + + + documented as of this encounter Visit Diagnoses Not on filedocumented in this encounter"
--- OUTSIDE RECORDS SUMMARY | ~2019-08-28 | XMS | Encounter Summary ---
Demographics + + + | Address | [address] | | | [place] [address] | + + + | Home Phone | | + + + | Preferred Language | Unknown | + + + | Marital Status | Single | + + + | Pentecostal Affiliation | CAT | + + + [...] Samantha Ramos | ECON | [address] # | | | | | [place] | | | | | [address] | | + + + + + Care Team Providers + +------+ + | Care Concrete Mixing Plant Laborer Name | Role | Phone | [...] | | | | | Procedures | [place], [place] | [facility] | | | | | CONSULT TO | [address] | [place] | | | | | GI PROCEDURE | Phone: | [address] | | | | | UNIT: EGD | [phone] | [place], | | | | | | Fax: | [place] [address] | | | | | | [phone] | Phone: | | | | | | | [phone] | | | | | | | Fax: | | | | | | | [phone] | + +--------+ + + + + [...] | Diabetic | Lashawn Tan, | [address] | | | | | gastroparesi | [address] | [address] | | | | | s (HCC) | [address] | Mailcode: | | | | | Procedures | [facility] | [facility] | | | | | CONSULT TO | | [facility] and | | | | | SURGERY - | [place], [place] | Healing, | | | | | GENERAL | [address] | [facility] | | | | | CONSULT TO | Phone: | [place], [place] | | | | | SURGERY - | [phone] | [address] | | | | | GENERAL | Fax: | Phone: | | | | | | [phone] | [phone] | | | | | | | Fax: | | | | | | | [phone] | + +--------+ + + + + Encounter Details +--------+---------+ + + + | Date | Type | Department | Care Team | Description | +--------+---------+ + + + | 07/27/ | Office | Digestive Health | Alison Holley, | History of diabetic | | 2019 | Visit | [facility] [address] | MD [address] | gastroparesis | | | | [address] | [address] [place], [place] | (Primary Dx) | | | | Mailcode: Center | [address] | | | | | for Health and | [phone] | | | | | [facility], [facility] | | | | | | [place], [place] | | | | | | [address] | | | | | | [phone] | | | +--------+---------+ + + + [...] might be different fr om the original. [facility] Department of Surgery [facility] [...] was mildly elevated but no evidence of HI. V/Q was neg f or PE. Functional [...] Vitals reviewed. Labs/Cultures/Pathology: HBA1c 9.8% Imaging/Diagnostic Studies: [place] GASTRIC EMPTYING STUDY 07/25/19: - No report - Severe gastroparesis seen [place] GASTRIC EMPTYING STUDY Order: [id number] Status: Final result Visible to patient: No (Not Released) Details Reading Physician Reading Date Result Priority Emmanuel Mohamud MD 08/27/2015 Routine Component 3yr ago [place] GASTRIC EMPTYING EXAM: Gastric emptying study on [...] t he above plan. Silke Flores MD [facility] General Surgery Pager #[phone] STAFF: A resident assisted with documenting this [...] 2018 | Encounter | | MD [address] | | | | | | [place], | | | | | | [place] [address] | | | | | | [phone] | | | | | | | | +--------+ + + + + | 09/03/ | Appointment | Procedural Care Unit | | | | 2018 | | | | | +--------+ + + + + | 09/03/ | Appointment | Gastroenterology | Greg Mathis | | | 2018 | | | MD Harris [address] | | | | | | [place], | | | | | | [place] [address] | | | | | | [phone] | | | | | | | | +--------+ + + + + | 09/13/ | Office | Hematology & | Rodney | | | 2018 | Visit | Oncology | MD Nabeel [address] | | | | | | [place], | | | | | | [place] [address] | | | | | | [phone] | | | | | | | | +--------+ + + + + | 01/24/ | Office | Surgery | Neri Steven MD | | | 2019 | Visit | | [address] | | | | | | [place], | | | | | | [place] [address] | | | | | | [phone] | | | | | | | | +--------+ + + + + documented as of this encounter Visit Diagnoses + + | Diagnosis | + + | History of diabetic gastroparesis - Primary Personal history of other endocrine, | | metabolic, and immunity disorders | + + documented in this encounter
--- OUTSIDE RECORDS SUMMARY | ~2019-08-28 | XMS | Encounter Summary ---
Demographics + + + | Address | [address] | | | [place] [address] | + + + | Home Phone [...] | Samantha Ramos | ECON | [address] # | | | | | [place] | | | | | [address] | | + + + + + Care Team Providers + +------+ + | Care Passenger Vessel Chef Name | Role | Phone | + [...] 2005 | Only | [address] | [phone] | | | | | Rd Mailcode: RPB07 | | | | | | [place], [place] | | | | | | [address] | | | | | | [phone] | | | +--------+ + + + [...] 2019 | Encounter | | MD Harris [address] | | | | | | [place], | | | | | | [place] [address] | | | | | | [phone] | | | | | | | [...] | | | | | | [place] [address] | | | | | | [phone] | | | | | | | | +--------+ + + + + | 09/13/ | Office | Hematology & | Rodney, | | | 2019 | Visit | Oncology | MD Leo Lees | | | | | | [place] | | | | | | [place] [address] | | | | | | [phone] | | | | | | | | +--------+ + + + + | 01/24/ | Office | Surgery | Neri Steven MD | | | 2019 | Visit | | [address] | | | | | | [place], | | | | | | [place] [address] | | | | | | [phone] | | | | | | | [...]
--- OUTSIDE RECORDS SUMMARY | ~2019-08-28 | XMS | Encounter Summary ---
Demographics + + + | Address | [address] | | | [place] [address] | + + + | Home Phone | | + + + | Preferred Language | Unknown | + + + | Marital Status | Single | + + + | Denominational Affiliation | CAT | + + + [...] | Samantha Ramos | ECON | [address] # | | | | | [place] | | | | | [address] | | + + + + + Care Team Providers + +------+ + | Care Perianesthesia Manager Name | Role | Phone | [...] [facility] | [place], [place] | | | | | [address] | [address] | | | | | [place] Mailcode: | [phone] | | | | | [address] | | | | | | [place], [place] | | | | | | [address] | | | | | | [phone] | | | +--------+ + + + [...] 2019 | Encounter | | MD Harris [address] | | | | | | [place], | | | | | | [place] [address] | | | | | | [phone] | | | | | | | [...] | | | | | | [place] [address] | | | | | | [phone] | | | | | | | | +--------+ + + + + | 09/13/ | Office | Hematology & | Rodney | | | 2018 | Visit | Oncology | MD Leo Lees | | | | | | [place] | | | | | | [place] [address] | | | | | | [phone] | | | | | | | | +--------+ + + + + | 01/24/ | Office | Surgery | Neri Steven MD | | | 2019 | Visit | | [address] | | | | | | [place], | | | | | | [place] [address] | | | | | | [phone] | | | | | | | [...] VERITO VERDE | [address] | [place], [place] | | | [facility] | [facility] | [address] | | | TESTS | | | | + + + + + | [facility] | [address] | [place], [place] | | | TESTS | [facility] | [address] | | + + + + + documented in this encounter Visit Diagnoses Not on filedocumented in this encounter"
--- OUTSIDE RECORDS SUMMARY | ~2019-08-28 | XMS | Encounter Summary ---
Demographics + + + | Address | [address] | | | [place] [address] | + + + | Home Phone [...] | [place] | | | | | [address] | | + + + + + Care Team Providers + +------+ + | Care Coach Driver Name | Role | Phone | + +------+ + | Erich Yates | PCP | | + +------+ + Encounter Details +--------+ + + + + | Date | Type | Department | Care Team | Description | +--------+ + + + + | 05/15/ | Abstract | [facility] | Divya, | | | 2017 | | GASTROENTEROLOGY | MD [address] | | | | | [address] [facility] | [place]. | | | | | [address] [place] | [place] [address] | | | | | [address] | | | | | | [phone] | | | +--------+ + + + [...]
--- OUTSIDE RECORDS SUMMARY | ~2019-08-28 | XMS | Encounter Summary ---
Demographics + + + | Address | [address] | | | [place] [address] | + + + | Home Phone [...] | [place] | | | | | [address] | | + + + + + Care Team Providers + +------+ + | Care Financial Service Representative Name | Role | Phone [...] | 03/22/ | Telephone | [facility] [place] | [facility] Referral | | 2019 | | GASTROENTEROLOGY | DANA Perry [address] | | | | | [address] [place] | [place], [place] [address] | | | | | [address] [place], [place] | [place], [place] | | | | | [address] | [address] | | | | | [phone] | | | +--------+ + + + [...]
--- OUTSIDE RECORDS SUMMARY | ~2019-08-28 | XMS | Encounter Summary ---
Demographics + + + | Address | [address] | | | [place] [address] | + + + | Home Phone | | + + + | Preferred Language | Unknown | + + + | Marital Status | Single | + + + | Orthodox Affiliation | CAT | + + + [...] Samantha Ramos | ECON | [address] # | | | | | [place], [place] | | | | | [address] | | + + + + + Care Team Providers + +------+ + | Care Molder Foam Rubber Name | Role | Phone | + [...] 2019 | Encounter | | MD Harris [address] | | | | | | [place], | | | | | | [place] [address] | | | | | | [phone] | | | | | | | [...] | | | | | | [place] [address] | | | | | | [phone] | | | | | | | | +--------+ + + + + | 09/13/ | Office | Hematology & | Rodney, | | | 2019 | Visit | Oncology | MD Leo Lees | | | | | | [place] | | | | | | [place] [address] | | | | | | [phone] | | | | | | | | +--------+ + + + + | 01/24/ | Office | Surgery | Neri Steven MD | | | 2020 | Visit | | [address] | | | | | | [place], | | | | | | [place] [address] | | | | | | [phone] | | | | | | | | +--------+ + + + + documented as of this encounter Visit Diagnoses Not on filedocumented in this encounter"
--- OUTSIDE RECORDS SUMMARY | ~2019-08-28 | XMS | Encounter Summary ---
Demographics + + + | Address | [address] | | | [place] [address] | + + + | Home Phone [...] | Gia Ramos | ECON | [address] | | | | | [place] | | | | | [address] | | + + + + + Care Team Providers + +------+ + | Care Pavilion Cutter Name | Role | Phone | [...] | Services | ogy | Diabetic | [facility], | Greg Bernardo MD | | | Required | | gastroparesi | Vicky, | [address] | | | | | s (HCC) | WOOD TURNER [address] [place] | | | | | Malnutrition | [place], [place] | [address] | | | | | , | [address] [place] | [place], [place] | | | | | unspecified | [place], [place] | [address] | | | | | type (HCC) | [address] | Phone: | | | | | Weight loss | Phone: | [phone] | | | | | | [phone] | Fax: | | | | | | Fax: | [phone] | | | | | | [phone] | | +--------+ + + + + [...] | [address] [place] | [place], [place] [address] | (HCC) (Primary Dx); | | | | [address] [place], [place] | [place], [place] | Diabetic | | | | [address] | [address] | gastroparesis (HCC); | | | | [phone] | | Weight loss | +--------+ + [...] type | | | | | | ([facility]) Weight loss | | + + +--------+ + + documented as of this encounter Visit Diagnoses + + | Diagnosis | + + | Malnutrition, unspecified type ([facility]) - Primary | + + | Diabetic gastroparesis ([facility]) 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
--- OUTSIDE RECORDS SUMMARY | ~2019-08-28 | XMS | Encounter Summary ---
Demographics + + + | Address | [address] | | | [place] [address] | + + + | Home Phone [...] Samantha Ramos | ECON | [address] # | | | | | [place], [place] | | | | | [address] | | + + + + + Care Team Providers + +------+ + | Care Boat Motor Mechanic Name | Role | Phone | [...] as of this encounter Progress Notes Interface, Audit Lead In - 04/25/2005 2:09 AM PDT [id number] 12/11/2004 12/11/2004 [id number] NAHOMY [facility] [address] [place], [place] [address] or December 11, 2004 Neri Mojica MD [address], [place] [address] RE: BROOKS MARQUEZ II MR #: [id number] Dear Dr. Mojica: I reviewed Brooks in Endocrine Clinic today. This is his second visit our clinic, having established care here in September. To recap, he was diagnosed with type 1 diabetes in April 2002 and initially received his education in [facility]. He has been followed by yourself [...] at this present time, although I did risk reduction counselor him that this would be optimal [...] months' time. Yours sincerely, Ashanti Roque M.D. Dye Range Feeder, Pediatric Endocrinology / [id number] / [id number] / [id number] / documented i n this encounter Plan of Treatment +--------+ + + + + | Date | Type | Specialty | Care Team | Description | +--------+ + + + + | 09/03/ | Hospital | | Greg Mathis | | | 2019 | Encounter | | MD Harris [address] | | | | | | [place], | | | | | | [place] [address] | | | | | | [phone] | | | | | | | [...] | | | | | | [place] [address] | | | | | | [phone] | | | | | | | | +--------+ + + + + | 09/13/ | Office | Hematology & | Rodney, | | | 2018 | Visit | Oncology | MD [address] | | | | | | [place], | | | | | | [place] [address] | | | | | | [phone] | | | | | | | | +--------+ + + + + | 01/24/ | Office | Surgery | Neri Steven MD | | | 2019 | Visit | | [address] | | | | | | [place] | | | | | | [place] [address] | | | | | | [phone] | | | | | | | | +--------+ + + + + documented as of this encounter Visit Diagnoses Not on filedocumented in this encounter"
--- OUTSIDE RECORDS SUMMARY | ~2019-08-28 | XMS | Encounter Summary ---
Demographics + + + | Address | [address] | | | [place] [address] | + + + | Home Phone | | + + + | Preferred Language | Unknown | + + + | Marital Status | Single | + + + | Judaism Affiliation | CAT | + + + [...] Samantha Ramos | ECON | [address] # | | | | | [place], [place] | | | | | [address] | | + + + + + Care Team Providers + +------+ + | Care Junior Analyst Name | Role | Phone | [...] 2019 | Encounter | | MD Harris [address] | | | | | | [place], | | | | | | [place] [address] | | | | | | [phone] | | | | | | | [...] | | | | | | [place] [address] | | | | | | [phone] | | | | | | | | +--------+ + + + + | 09/13/ | Office | Hematology & | Rodney, | | | 2019 | Visit | Oncology | MD Leo Lees | | | | | | [place] | | | | | | [place] [address] | | | | | | [phone] | | | | | | | | +--------+ + + + + | 01/24/ | Office | Surgery | Neri Steven MD | | | 2020 | Visit | | [address] | | | | | | [place], | | | | | | [place] [address] | | | | | | [phone] | | | | | | | | +--------+ + + + + documented as of this encounter Visit Diagnoses Not on filedocumented in this encounter"
--- OUTSIDE RECORDS SUMMARY | ~2019-08-28 | XMS | Encounter Summary ---
Demographics + + + | Address | [address] | | | [place] [address] | + + + | Home Phone [...] + + | Author | [facility] | | | and [place] | + + + | Organization | [facility] | | | [...] [address] [place] | | | | | [address] | | + + + + + Care Team Providers + +------+ + | Care Corrugated Fastener Driver Name | Role | Phone | [...] | | complication | [place], | [place] [address] | | | | | s ([facility]) | [place] [address] | Phone: | | | | | Unspecified | Phone: | [phone] | | | | | abdominal | [phone] | Fax: | | | | | pain | Fax: | [phone] | | | | | Functional | [phone] | | | | | | intestinal [...] | [address] [place] | [place], [place] [address] | (Primary Dx); Weight | | | | [address] [place], [place] | [place], [place] | loss; Malnutrition, | | | | [address] | [address] | unspecified type | | | | [phone] | | ([facility]); 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 Patient significantly malnourished due [...]
--- OUTSIDE RECORDS SUMMARY | ~2019-08-28 | XMS | Encounter Summary ---
Demographics + + + | Address | [address] | | | [place] [address] | + + + | Home Phone [...] Samantha Ramos | ECON | [address] # | | | | | [place] | | | | | [address] | | + + + + + Care Team Providers + +------+ + | Care Ruling Machine Feeder Name | Role | Phone [...] | | | | Mailcode: Center | [place], [place] | | | | | [facility] and | [address] | | | | | [facility] [address] | [phone] | | | | | [place], [place] | | | | | | [address] | | | | | | [phone] | | | +--------+ + + + [...] 2019 | Encounter | | MD Harris [address] | | | | | | [place], | | | | | | [place] [address] | | | | | | [phone] | | | | | | | [...] | | | | | | [place] [address] | | | | | | [phone] | | | | | | | | +--------+ + + + + | 09/13/ | Office | Hematology & | Rodney | | | 2019 | Visit | Oncology | MD Leo Lees | | | | | | [place] | | | | | | [place] [address] | | | | | | [phone] | | | | | | | | +--------+ + + + + | 01/24/ | Office | Surgery | Neri Steven MD | | | 2020 | Visit | | [address] | | | | | | [place], | | | | | | [place] [address] | | | | | | [phone] | | | | | | | | +--------+ + + + + documented as of this encounter Visit Diagnoses Not on filedocumented in this encounter"
--- OUTSIDE RECORDS SUMMARY | ~2019-08-28 | XMS | Encounter Summary ---
Demographics + + + | Address | [address] | | | [place] [address] | + + + | Home Phone | | + + + | Preferred Language | Unknown | + + + | Marital Status | Single | + + + | Spiritism Affiliation | CAT | + + + | Race | White | + + + | Ethnic Group | Not or | + + + Author + + + | Author | [facility] | + + + | Organization | [facility] | + + + | Address | Unknown | + + + | Phone | Unavailable | + + + Support + + + + + | Name | Relationship | Address | Phone | + + + + + | Samantha Ramos | ECON | [address] # | | | | | [place] | | | | | [address] | | + + + + + Care Team Providers + +------+ + | Care Freight Weigher Name | Role | Phone | + [...] | Ophthalmology | Diagnoses | Aroldo | Liyahi Comp | | | | | Type 1 | Mallika Willis, | Oph Res Chh1 | | | | | diabetes, | MD [address] | | | | | uncontrolled | [address] | Wendy | | | | | , with renal | [place] | Mailcode: | | | | | | [place], [place] | [address] | | | | | manifestatio | [address] | for Health | | | | | n ([facility]) | Phone: | and Healing, | | | | | Procedures | [phone] | Building [address], | | | | | CONSULT TO | Fax: | 11th Floor | | | | | OPHTHALMOLOG | [phone] | [place], [place] | | | | | Y | | [address] | | | | | | | Phone: | | | | | | | [phone] | | | | | | | Fax: | | | | | | | [phone] | +--------+--------+ + + + + Reason [...] [facility] | | | | , Diabetes & | Diabetic | MD Eunice | Adult Ppv | | | | Metabolism | ketoacidosis | [address] | [address] | | | | | without | [facility] | [facility] | | | | | coma | Rd | Rd | | | | | associated | [place], [place] | Physician's | | | | | with type 1 | [address] | [facility] [address] | | | | | diabetes | Phone: | [address] | | | | | mellitus | [phone] | [place], [place] | | | | | ([facility]) Type | Fax: | [address] | | | | | 1 diabetes | [phone] | Phone: | | | | | mellitus | | [phone] | | | | | with | | Fax: | | | | | hyperglycemi | | [phone] | | | | | a (HCC) [...] Kendrick, | Type 1 diabetes, | | 2014 | Visit | Diabetes Health | [address] | uncontrolled, with | | | | [facility] | [address] | renal manifestation | | | | [address] | [place], [place] | ([facility]) (Primary Dx); | | | | [address] | [address] | Hyperglycemia due to | | | | Physician's | [phone] | type 1 diabetes | | | | [address] | | mellitus (HCC); Leg | | | | [place], [place] | | wound, right, | | | | [address] | | initial encounter | | | | [phone] | | | +--------+---------+ + + + [...] might be different f rom the original. [facility] New Patient Consultation Referring physician: Jaison Pascual DO Primary care provider: Jaison Pascual DO Reason for Consultation: Type 1 diabetes History of Present Illness: This is a new patient to my clinic. Brooks Marquez II is a 24 y.o. male referred for evaluation of type 1 diabetes. Diagnosed in 2001. Seen in childhood in [facility] pediatric endocr inology. Long-standing suboptimal control. Diabetes complicated by gastroparesis and has bee n seen in the ER frequently. Multiple past episodes of DKA, most recently earlier this month at [facility]. Frequent nausea. Doing well since discharge and no current issues with vomiting. N o numbness/tingling. Did not have insurance for a period of time and was paying out of [employer] for his insulin approx 1 year ago [...] tobacco use: 1/2 ppd. 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 Allergies: Allergies Allergen Reactions Codeine Nausea and [...] random - Final result (09/02/2015 8:48 AM [facility]UST) Component Value Range Microalb, Ur 1337.2 (H) [...] Hyperglycemia due to type 1 diabetes mellitus ([facility]) S81.801A Leg wound, right, initial encounter A1C [...] hair in lower extremities. 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 Discussed conservative measures for wound and signs/symptoms [...] 2018 | Encounter | | MD Harris [address] | | | | | | [place], | | | | | | [place] [address] | | | | | | [phone] | | | | | | | | +--------+ + + + + | 09/03/ | Appointment | Procedural Care Unit | | | | 2018 | | | | | +--------+ + + + + | 09/03/ | Appointment | Gastroenterology | Greg Mathis | | | 2018 | | | MD Harris [address] | | | | | | [place], | | | | | | [place] [address] | | | | | | [phone] | | | | | | | | +--------+ + + + + | 09/13/ | Office | Hematology & | Rodney, | | | 2018 | Visit | Oncology | MD Nabeel [address] | | | | | | [place], | | | | | | [place] [address] | | | | | | [phone] | | | | | | | | +--------+ + + + + | 01/24/ | Office | Surgery | Neri Steven MD | | | 2019 | Visit | | [address] | | | | | | [place], | | | | | | [place] [address] | | | | | | [phone] | | | | | | | | +--------+ + + + + documented as of this encounter Results BASIC METABOLIC [...] | | | LABORATORY | | | [facility] | | | SERVICES, | | | [...] | + + + + + | [facility] | [address] | [place] [address] | | | SERVICES, CORE | ZENA [...]
--- OUTSIDE RECORDS SUMMARY | ~2019-08-28 | XMS | Clinical Summary ---
Demographics + + + | Address | [address] | | | [place] [address] | + + + | Home Phone [...] Samantha Ramos | ECON | [address] # | | | | | [place], [place] | | | | | [address] | | + + + + + Care Team Providers + +------+ + | Care Welder Apprentice Arc Name | Role | Phone | + +------+ + | Erich Yates PA-C | PCP | | + +------+ + Source Comments VERITO is fully live on both [facility] and [facility] In[facility] Allergies + + + + + [...] + + + + | 08/16/ | Lather Apprentice | Surgery | Beth Mondragon, | Diabetic [...] + + + + | 07/04/ | Lather Apprentice | Surgery | Neri Steven MD | [...] 2018 | Encounter | | MD Harris [address] | | | | | | [place], | | | | | | [place] [address] | | | | | | [phone] | | | | | | | | +--------+ + + + + | 09/03/ | Appointment | Procedural Care Unit | | | | 2018 | | | | | +--------+ + + + + | 09/03/ | Appointment | Gastroenterology | AaronshannoncristinGreg | | | 2018 | | | MD Harris [address] | | | | | | [place], | | | | | | [place] [address] | | | | | | [phone] | | | | | | | | +--------+ + + + + | 09/13/ | Office | Hematology & | Rodney, | | | 2018 | Visit | Oncology | MD Nabeel [address] | | | | | | [place], | | | | | | [place] [address] | | | | | | [phone] | | | | | | | | +--------+ + + + + | 01/24/ | Office | Surgery | Neri Steven MD | | | 2019 | Visit | | [address] | | | | | | [place], | | | | | | [place] [address] | | | | | | [phone] | | | | | | | [...] [address] | [place], [place] | [phone] | | [place] | | | | [...] - | [address] | [place], [place] | [phone] | | [place] | | | | [...] [address] | [place] | [phone] | | [place] | | | | [...] [address] | [place], [place] | [phone] | | [place] | | | | [...] | + + + + + | [facility] [employer] | [address] | [place] [address] | | | SERVICES, CORE | [place] [...] + | [facility] - | [address] | [place] [address] | | | [place] | | | [...] | | | LABORATORY | | | [facility] | | | SERVICES, | | | [...] MDRD equation recommended by the National | [facility] | | Kidney Disease Education Program. [...] | + + + + + | [facility] | [address] | [place] [address] | | | SERVICES, CORE | PARK [...] Male | 50 - 200 ng/mL | [facility] | | | | and Female >18 [...] | + + + + + | [employer] | [address] | [place] [address] | | | ZOEY DODD | [place] [...] | | | + +--------+ +--------+-------+---------+--------+ | UNIFIED COMMUNICATIONS ENGINEER MEDICAID | UNIFIED COMMUNICATIONS ENGINEER | xxxxxxxx | 04/03/20 | | [...] | | lucian | | | [address] ([place]) | [address] | + +--------+ +--------+ + + Advance [...]
--- OUTSIDE RECORDS SUMMARY | ~2019-08-28 | XMS | Encounter Summary ---
Demographics + + + | Address | [address] | | | [place] [address] | + + + | Home Phone | | + + + | Preferred Language | Unknown | + + + | Marital Status | Single | + + + | Advent Affiliation | CAT | + + + | Race | White | + + + | Ethnic Group | Not or | + + + Author + + + | Author | [facility] | + + + | Organization | [facility] | + + + | Address | Unknown | + + + | Phone | Unavailable | + + + Support + + + + + | Name | Relationship | Address | Phone | + + + + + | Samantha Ramos | ECON | [address] # | | | | | [place] | | | | | [address] | | + + + + + Care Team Providers + +------+ + | Care Bookkeepers Supervisor Name | Role | Phone | [...] | | without | Gurpreet Zena | [facility] | | | | | coma | Rd | Rd | | | | | associated | [place], [place] | Physician's | | | | | with type 1 | [address] | Bg Fabrice | | | | | diabetes | Phone: | [address] | | | | | mellitus | [phone] | [place], [place] | | | | | ([facility]) Type | Fax: | [address] | | | | | 1 diabetes | [phone] | Phone: | | | | | mellitus | | [phone] | | | | | with | | Fax: | | | | | hyperglycemi | | [phone] | | | | | a ([facility], [...] | | | | | mellitus | [facility] | [address] | | | | | with | Rd | Mailcode: | | | | | hyperglycemi | [place], [place] | [address] | | | | | a ([facility]) | [address] | Physician's | | | | | Procedures | Phone: | Bg Olmos | | | | | CONSULT TO | [phone] | [address] | | | | | ADULT | Fax: | [place], [place] | | | | | DIABETES - | [phone] | [phone] | | | | | EDUCATION | | Phone: | | | | | (DIABETES | | [phone] | | | | | SELF-MANAGEM | | Fax: | | | | | ENT) | | [phone] | +--------+--------+ + + + + Reason [...] + + | 08/25/ | Hospital | [facility] [address] | [address] | | | 2015 - | Encounter | Nathalia Bernardo MD [address] | | | | | 14[address] [facility] | [address] | | | 08/27/ | | [place], [place] | [place], [place] | | | 2014 | | [address] | [address] | | | | | [phone] | [phone] | | | | | | | | | | | | Harris Martínez MD | | | | | | Chrissie | | | | | | [facility] | | | | | | Center [address] | | | | | | [address] [place], | | | | | | [place] [address] | | | | | | [phone] | | | | | | | | | | | | Jeff Diggs, | | | | | | ,MPH [address] | | | | | | [facility] [address] | | | | | | [facility], [place] | | | | | | [address] | | | | | | [phone] | | | | | | | | | | | | Eunice Parada MD | | | | | | [address] | | | | | | [facility] [address] | | | | | | [place], [place] | | | | | | [address] | | | | | | [phone] | | | | | | | | | | | | Vern Garnica, | | | | | | [address] | | | | | | [facility] [address] | | | | | | [facility], [place] | | | | | | [address] | | | | | | [phone] | | | | | | | [...] Procedures 1. Gastric emptying study Consulting Services: Protection Mgr Reason For Admission: Diabetic ketoacidosis. Hyperglycemia, acute [...] endocrinolog y and diabetes education here at [facility] which were completed. He was counseled on how to rotat e sites for his insulin injections. - Continue glargine 15 units daily + lispro 1 unit per 15 g carb - Outpatient referral to endocrinology and family living educator - Will need outpatient follow up [...] post-hospitalization follow-up; Appt at 740am Contact information [facility] [address] [facility] [address] [place] [phone] Follow up with [facility] at [facility] 1st Floor. Specialty: Endocrinology, Diabetes & Metabolism Why: To establish care; follow up on referral to endocrinology if you do not hear back fr om them in 1 week Contact information [address] [address] Additional information: [facility], 1st floor [address] [place] [address] The [facility] is the building just past [facility]. Turn right immediately past the [address]. The entrance to [facility] will be on your right just beyond the main doors to the [address]. An elevator in e parking garage will take patients directly to the floor of the clinic. The [facility] is located on the 1st floor. Please check in at the front loader residential driver. M aps and directions can be found at: [email or web address] Other Discharge Orders and Instructions It was a pleasure taking care of you while you were here at [facility] 1) Take all your medications as prescribed especially your insulin and blood pressure medic ations 2) Follow up with your PCP Dr. Pascual on 09/02 at 740am. 3) Make sure to rotate location of where you inject your insulins and keep close track of y our blood sugars 4) We will make referral to [facility] endocrinology but please follow up [...] nearest ER for evaluation. Referrals placed to [facility] endocrinology and family living educator This note was routed to patient's PCP in GiveForward. EUNICE PARADA MD Pager - [phone] Discotheque Dancertable maker Clinical and Medicine [facility] Services [facility] I spent 45 minutes coordinating care for this patient's discharge, of which 30 minutes were spent [id number] with the patient as well as with [...] about new lisinopril. Diabetes education provided by family educator Liz BRYANT. Pt reports he has [...] is stating desire to establish with an Route Salesperson. Has not hooper d an wired sweatband cutter since "Dr Roque" during pediatric years at [facility]. Pt uses insulin syringe and [...] home. States willingness to come back to [facility] for endocrinology care, lives in [facility]. Hypoglycemia: reports 1-2 occurrences per week, [...] steven. Pt expresses interest in establishing with wired sweatband cutter here at [facility], and is willing to review/discuss further insulin pumps with endocrinology team. Informed pt that insulin pump does not take away the work (still need to check BG levels an d count carbs and give bolus doses) Recommendations 1. Encourage pt to attend support group 2. Encourage improving DM self management and care 3. Refer to [facility] diabetes center for endocrinology care 4. Refer to family living educator in diabetes center for updating carb [...] LD, RN, CDE Inpatient Diabetes Education Pager: [phone] Eunice Rich MD - 08/26/2015 9:03 AM PST Internal Medicine Clinical Hospitalist Service Progress Note ID/CC: Brooks Marquez (Keith) is a 24 year old man with poorly controlled type 1 diabetes trent litus (HgbA1c in 06/2015 of 12.5%) here with diabetic ketoacidosis in setting of impaired in sulin absorption due to subcutaneous scar tissue with concurrent lactic acidosis (now [facility] ed), no clear infectious etiology for [...] full code EUNICE PARADA MD Pager - [phone] Discotheque Dancertable maker Clinical and Medicine [facility] Services [facility] [place] I spent 40 minutes [id number] with the patient as well as with [...] 2019 | Encounter | | MD [address] | | | | | | [address] [place], | | | | | | [place] [address] | | | | | | [phone] | | | | | | | [...] | | | | | | [place] [address] | | | | | | [phone] | | | | | | | | +--------+ + + + + | 09/13/ | Office | Hematology & | Rodney, | | | 2018 | Visit | Oncology | MD Shwetha [address] | | | | | | [place], | | | | | | [place] [address] | | | | | | [phone] | | | | | | | | +--------+ + + + + | 01/24/ | Office | Surgery | Neri Steven MD | | | 2019 | Visit | | [address] | | | | | | [place], | | | | | | [place] [address] | | | | | | [phone] | | | | | | | [...] + + documented in this encounter Results HI GASTRIC EMPTYING STUDY (08/27/2015 2:13 PM PST) [...] | | + +---------+ + + | [facility] DEPARTMENT OF | | | | | [...] VERDE | [address] | [place], [place] | | | TANJA HAY OF ANNA | [address] | [address] | | | TESTS | | | [...] AMMON | [address] | [place], [place] | | | TANJA HAY OF ANNA | [facility] | [address] | | | TESTS | | | [...] (H) | 60 - 99 mg/dL | [facility] - | | | GLUCOSE, [...] VERDE | [address] | [place], [place] | | | SATNAM POINT OF CARE | [address] | [address] | | | TESTS | | | [...] | | | LABORATORY | | | [place]OREAN | | | SERVICES, | | | [...] | + + + + + | [facility]ORY | [address] | [place] [address] | | | SERVICES, CORE | ZENA [...] 97 | 60 - 99 mg/dL | [facility] - | | | GLUCOSE, [...] VERDE | [address] | [place], [place] | | | TANJA HAY OF CARE | [address] | [address] | | | TESTS | | | [...] MARQUAM | [address] | [place], [place] | | | TANJA HAY OF ANNA | [address] | [address] | | | TESTS | | | [...] MARRADHAAM | [address] | [place], [place] | | | SATNAM POINT OF CARE | [address] | [address] | | | TESTS | | | [...] (L) | 60 - 99 mg/dL | [facility] - | | | GLUCOSE, [...] VERDE | [address] | [place], [place] | | | TANJA HAY OF CARE | [address] | [address] | | | TESTS | | | [...] MARQUAM | [address] | [place], [place] | | | TANJA HAY OF CARE | [address] | [address] | | | TESTS | | | [...] MARRADHAAM | [address] | [place], [place] | | | TANJA HAY OF CARE | [address] | [address] | | | TESTS | | | [...] (H) | 60 - 99 mg/dL | [facility] - | | | GLUCOSE, [...] VERDE | [address] | [place], [place] | | | TANJA HAY OF CARE | [address] | [address] | | | TESTS | | | [...] MARQUAM | [address] | [place], [place] | | | TANJA HAY OF CARE | [address] | [address] | | | TESTS | | | [...] AVELINAAM | [address] | [place], [place] | | | TANJA HAY OF CARE | [address] | [address] | | | TESTS | | | [...] (H) | 60 - 99 mg/dL | [facility] - | | | GLUCOSE, [...] VERDE | [address] | [place], [place] | | | TANJA HAY OF CARE | [address] | [address] | | | TESTS | | | [...] | | | POC | | | TAJNA HAY | | | | | | [...] MARQUAM | [address] | [place], [place] | | | TANJA HAY OF CARE | [address] | [address] | | | TESTS | | | [...] | | | LABORATORY | | | [place]OREAN | | | SERVICES, | | | [...] | + + + + + | [facility] | [address] | [place] [address] | | | SERVICES, CORE | ZENA [...] MARQUAM | [address] | [place], [place] | | | SATNAM POINT OF CARE | [address] | [address] | | | TESTS | | | [...] MARQUAM | [address] | [place], [place] | | | SATNAM POINT OF CARE | [address] | [address] | | | TESTS | | | [...] + + + | VERITO VERDE | [address] | [place], [place] | | | TANJA HAY OF ANNA | [address] | [address] | | | TESTS | | | [...] MARQUAM | [address] | [place], [place] | | | SATNAM POINT OF CARE | [address] | [address] | | | TESTS | | | [...] MARQUAM | [address] | [place], [place] | | | SATNAM POINT OF CARE | [address] | [address] | | | TESTS | | | [...] VERDE | [address] | [place], [place] | | | TANJA HAY OF CARE | [address] | [address] | | | TESTS | | | [...] MARQUAM | [address] | [place], [place] | | | SATNAM POINT OF CARE | [address] | [address] | | | TESTS | | | [...] - AMMON | [address] | [place], [place] | | | GLENELG POINT OF CARE | [address] | [address] | | | TESTS | | | [...] | | | LABORATORY | | | [place]OREAN | | | SERVICES, | | | [...] the MDRD equation recommended by the | RISU | | National Kidney Disease Education Program. [...] [facility] | [address] | [place] [address] | | | SERVICES, CORE | PARK [...] [facility] | [address] | [place] [address] | | | SERVICESZOEY | [address] [...] MARQUAM | [address] | [place], [place] | | | TANJA HAY OF CARE | [facility] | [address] | | | TESTS | | | [...] VERDE | [address] | [place], [place] | | | TANJA HAY OF CARE | [address] | [address] | | | TESTS | | | [...] MARQUAM | [address] | [place], [place] | | | TANJA HAY OF ANNA | [address] | [address] | | | TESTS | | | [...] AMMON | [address] | [place], [place] | | | SATNAM POINT OF [facility] | [address] | [address] | | | TESTS | | | [...] activity: 50-100 | | | mg/dLDepression of DIAGRAMMER: >100 mg/dLFatalities reported: >400 mg/dL | | | Acetone, Methanol and Isopropanol:<5 mg/dL: Reported as Not | | | Detected<10 mg/dL but >5 mg/dL: Reported as <10 mg/dL>10 mg/dL: | | | Reported as measured numeric value Test performed by: [facility] | | | [facility] [address] [address] | | |<5 mg/dL: Reported as Not Detected | | |<10 mg/dL but >5 mg/dL: Reported as <10 mg/dL | | |>10 mg/dL: Reported as measured numeric value | | | | | |Test performed by: | | |[facility] | | |[address] | | |[place] [address] | | + + + + + [...] VERDE | [address] | [place], [place] | | | TANJA HAY OF ANNA | [facility] | [address] | | | TESTS | | | [...] [facility] | [address] | [place] [address] | | | SERVICES, CORE | PARK [...] | | | LABORATORY | | | [place]OREAN | | | SERVICES, | | | [...] the MDRD equation recommended by the | RISU | | National Kidney Disease Education Program. [...] [facility] | [address] | [place] [address] | | | SERVICES, CORE | PARK [...] [facility] | [address] | [place] [address] | | | SERVICES, ZOEY | ZENA [...] MARQUAM | [address] | [place], [place] | | | SATNAM POINT OF CARE | [address] | [address] | | | TESTS | | | [...] + + + | VERITO VERDE | [address] | [place], [place] | | | TANJA HAY OF CARE | [address] | [address] | | | TESTS | | | [...] MARQUAM | [address] | [place], [place] | | | SATNAM POINT OF CARE | [address] | [address] | | | TESTS | | | [...] - MARQUAM | [address] | [place], [place] | | | SATNAM POINT OF CARE | [address] | [address] | | | TESTS | | | [...] VERDE | [address] | [place], [place] | | | SAT[place] POINT OF CARE | [address] | [address] | | | TESTS | | | [...] | + + + + + | [facility] | [address] | [place] [address] | | | SERVICES, CORE | ZENA [...] | + + + + + | [facility] | [address] | [place] [address] | | | SERVICES, CORE | PARK [...] | + + + + + | [facility] | [address] | [place] [address] | | | SERVICES, CORE | PARK [...] | [facility] | [address] | [place], [place] | | | TANJA HAY OF CARE | [address] | [address] | | | TESTS | | | [...] AMMON | [address] | [place], [place] | | | TANJA HAY OF ANNA | [address] | [address] | | | TESTS | | | [...] | + + + + + | [facility] | [address] | [place], [place] | | | CARDIOLOGY | [address] | [address] | | + + + + + RAINBOW HOLD TUBE - RED TOP (08/25/2015 9:33 PM PST) + + | Specimen | + + | Blood - Blood | | (substance) | + + + + + + + | Performing | Address | City/State/Zipcode | Phone Number | | Organization | | | | + + + + + | [facility] | [address] | [place] [address] | | | SERVICES, CORE | ZENA [...] [facility] | [address] | [place] [address] | | | SERVICES, CORE | PARK [...] [facility] | [address] | [place] [address] | | | SERVICES, CORE | ZENA [...] | + + + + + | [facility] | [address] [facility] | [place] [address] | | | YOUSIF, | [address] [...] | | | LABORATORY | | | [place]OREAN | | | SERVICES, | | | [...] | + + + + + | [facility] | [address] | [place] [address] | | | SERVICES, CORE | ZENA [...] [facility] | [address] | [place] [address] | | | SERVICES, CORE | PARK [...] [facility] | [address] | [place] [address] | | | YOUSIF, ZOEY | Z[address] [...] | + + + + + | [facility] | [address] | [place] [address] | | | SERVICES, CORE | ZENA [...] (AA) | 60 - 99 mg/dL | [facility] - | | | GLUCOSE, [...] VERDE | [address] | [place], [place] | | | TANJA HAY OF CARE | [address] | [address] | | | TESTS | | | | + + + + + ED INFORMATION EXCHANGE (08/25/2015 9:25 PM PST) + + + + + + | Component | Value | Ref Range | Performed | Pathologist | | | | | At | Signature | + + + + + + | [facility] | [id number] | | [facility] | | | | [id number] | | MEDICAL | | | | [...] | ---- | | | 08/25/2015 21:25 [facility] [place] | | | Emergency [address]. Abdominal Pain 08/24/2015 16:44 | | | [facility] Emergency -Abd Pain | | | | | | -Epigastric pain | | | | | | -Cyclical vomiting, intractable | | | | | | -Hyperglycemia, unspecified | | | | | | -Abdominal Pain 08/18/2015 | | | 17:23 [facility] Emergency | | | -Gastroparesis | | [...] Pain 08/09/2015 12:53 | | | [facility] Emergency | | | -Abdominal Pain | | | | | | -Generalized abdominal pain | | | | | | -abd pain | | | -Vomiting | | | | | | -Cyclical vomiting, | | | intractable 08/01/2015 20:43 [facility] | | | Hospital Emergency -Cyclical vomiting, intractable | | | | | | -vomiting abd pain | | | | | | -Hyperglycemia | | | | | | -Abdominal Pain | | | | | | -Generalized abdominal pain | | | | | | -Gastroparesis 07/26/2015 16:13 [facility] | | | [facility] Hospital Emergency -vomiting, pain, diabetic | | | | | | -Cyclical vomiting, not | | | intractable | | | -Vomiting | | | 05/30/2015 17:01 [facility] | | | Emergency -Abdominal Pain | | | | | | -Finger Injury | | | -abd | | | pain 05/29/2015 21:54 [facility] | | | Emergency -Gangrene | | | | | | -diabetic, blood sugars, abd pain | | | | | | -Abdominal Pain | | | | | | -Nausea with vomiting | | | | | | -Abdominal pain, unspecified site | | | | | | -Gastroparesis ED VISIT COUNT (1 YR.) Visits | | | Location ------ --------- 11 [facility] | | | [facility] 1 [facility] | | | [place] 1 [facility] 1 | | | [facility] 14 Total Note: | | | Visits indicate total known visits. | | | | | | --- | | + + + + + + + + | Performing | Address | City/State/Zipcode | Phone Number | | Organization | | | | + + + + + | [facility] | [address], | [place], [place] | [phone] | | [employer] | [address] | [address] | | + + + + + [...]
--- OUTSIDE RECORDS SUMMARY | ~2019-08-28 | XMS | Encounter Summary ---
Demographics + + + | Address | [address] | | | [place] [address] | + + + | Home Phone [...] | Samantha Ramos | ECON | [address] | | | | | [place] | | | | | [address] | | + + + + + Care Team Providers + +------+ + | Care Fur Plucker Name | Role | Phone | + [...] | | | | | Procedures | [place], [place] | [facility] | | | | | CONSULT TO | [address] | [place] | | | | | GI PROCEDURE | Phone: | [address] | | | | | UNIT: EGD | [phone] | [place], | | | | | | Fax: | [place] [address] | | | | | | [phone] | Phone: | | | | | | | [phone] | | | | | | | Fax: | | | | | | | [phone] | + +--------+ + + + + [...] | Diabetic | Lashawn Tan, | [address] | | | | | gastroparesi | [address] | | | | | s (HCC) | [address] | Mailcode: | | | | | Procedures | [facility] | [facility] | | | | | CONSULT TO | | [facility] and | | | | | SURGERY - | [place], [place] | Healing, | | | | | GENERAL | [address] | [facility] | | | | | CONSULT TO | Phone: | [place], [place] | | | | | SURGERY - | [phone] | [address] | | | | | GENERAL | Fax: | Phone: | | | | | | [phone] | [phone] | | | | | | | Fax: | | | | | | | [phone] | + +--------+ + + + + Encounter Details +--------+---------+ + + + | Date | Type | Department | Care Team | Description | +--------+---------+ + + + | 07/27/ | Office | Digestive Health | Alison Holley, | History of diabetic | | 2019 | Visit | Center at [address] | MD [address] | gastroparesis | | | | [address] | [place], [place] | (Primary Dx) | | | | Mailcode: Center | [address] | | | | | for Health and | [phone] | | | | | [facility] | | | | | | [place], [place] | | | | | | [address] | | | | | | [phone] | | | +--------+---------+ + + + [...] might be different fr om the original. [facility] Department of Surgery [facility] [...] Vitals reviewed. Labs/Cultures/Pathology: HBA1c 9.8% Imaging/Diagnostic Studies: [place] GASTRIC EMPTYING STUDY 07/25/19: - No report - Severe gastroparesis seen [place] GASTRIC EMPTYING STUDY Order: [id number] Status: Final result Visible to patient: No (Not Released) Details Reading Physician Reading Date Result Priority Emmanuel Mohamud MD 08/27/2015 Routine Component 3yr ago [place] GASTRIC EMPTYING EXAM: Gastric emptying study on [...] t he above plan. Silke Flores MD [facility] General Surgery Pager #[phone] STAFF: A resident assisted with documenting this [...] 2018 | Encounter | | MD [address] | | | | | | [place], | | | | | | [place] [address] | | | | | | [phone] | | | | | | | | +--------+ + + + + | 09/03/ | Appointment | Procedural Care Unit | | | | 2018 | | | | | +--------+ + + + + | 09/03/ | Appointment | Gastroenterology | Greg Mathis | | | 2018 | | | MD Harris [address] | | | | | | [place], | | | | | | [place] [address] | | | | | | [phone] | | | | | | | | +--------+ + + + + | 09/13/ | Office | Hematology & | Rodney | | | 2018 | Visit | Oncology | MD Nabeel [address] | | | | | | [place], | | | | | | [place] [address] | | | | | | [phone] | | | | | | | | +--------+ + + + + | 01/24/ | Office | Surgery | Neri Steven MD | | | 2019 | Visit | | [address] | | | | | | [place], | | | | | | [place] [address] | | | | | | [phone] | | | | | | | | +--------+ + + + + documented as of this encounter Visit Diagnoses + + | Diagnosis | + + | History of diabetic gastroparesis - Primary Personal history of other endocrine, | | metabolic, and immunity disorders | + + documented in this encounter
--- OUTSIDE RECORDS SUMMARY | ~2019-08-28 | XMS | Encounter Summary ---
Demographics + + + | Address | [address] | | | [place] [address] | + + + | Home Phone | | + + + | Preferred Language | Unknown | + + + | Marital Status | Single | + + + | Christianity Affiliation | CAT | + + + [...] Samantha Ramos | ECON | [address] # | | | | | [place] | | | | | [address] | | + + + + + Care Team Providers + +------+ + | Care Business Segment Manager Name | Role | Phone | [...] | | | | Mailcode: Center | [place], [place] | | | | | for Health and | [address] | | | | | [facility] 2 | [phone] | | | | | [place], [place] | | | | | | [address] | | | | | | [phone] | | | +--------+ + + + [...] 2019 | Encounter | | MD Harris [address] | | | | | | [place], | | | | | | [place] [address] | | | | | | [phone] | | | | | | | [...] | | | | | | [place] [address] | | | | | | [phone] | | | | | | | | +--------+ + + + + | 09/13/ | Office | Hematology & | Rodney, | | | 2019 | Visit | Oncology | MD Leo Lees | | | | | | [place] | | | | | | [place] [address] | | | | | | [phone] | | | | | | | | +--------+ + + + + | 01/24/ | Office | Surgery | Neri Steven MD | | | 2020 | Visit | | [address] | | | | | | [place], | | | | | | [place] [address] | | | | | | [phone] | | | | | | | [...] [address] | [place], [place] | [phone] | | [place] | | | | [...] - | [address] | [place], [place] | [phone] | | [place] | | | | [...] [address] | [place], [place] | [phone] | | [place] | | | | [...] [address] | [place], [place] | [phone] | | [place] | | | | + + + + + documented in this encounter Visit Diagnoses + + | Diagnosis | + + | Chronic diarrhea Diarrhea | + + documented in this encounter"
--- OUTSIDE RECORDS SUMMARY | ~2019-08-28 | XMS | Encounter Summary ---
Demographics + + + | Address | [address] | | | [place] [address] | + + + | Home Phone | | + + + | Preferred Language | Unknown | + + + | Marital Status | Single | + + + | Anabaptist Affiliation | CAT | + + + [...] Samantha Ramos | ECON | [address] # | | | | | [place] | | | | | [address] | | + + + + + Care Team Providers + +------+ + | Care Telegraph Office Route Aide Name | Role | Phone | + +------+ + | Neri Mojica MD | PCP | | + +------+ + Encounter Details +--------+ + + + + | Date | Type | Department | Care Team | Description | +--------+ + + + + | 08/24/ | Document-Sc | UNKNOWN DEPARTMENT | Other, Faculty | | | 2012 | anned | [address] [facility] | [phone] | | | | | [address] | | | | | | [place], [place] | | | | | | [address] | | | +--------+ + + + [...] 2019 | Encounter | | MD Harris [address] | | | | | | [place] | | | | | | [place] [address] | | | | | | [phone] | | | | | | | [...] | | | | | | [place] [address] | | | | | | [phone] | | | | | | | | +--------+ + + + + | 09/13/ | Office | Hematology & | Rodney | | | 2018 | Visit | Oncology | MD Julia [address] | | | | | | [place] | | | | | | [place] [address] | | | | | | [phone] | | | | | | | | +--------+ + + + + | 01/24/ | Office | Surgery | Neri Steven MD | | | 2019 | Visit | | [address] | | | | | | [place], | | | | | | [place] [address] | | | | | | [phone] | | | | | | | | +--------+ + + + + documented as of this encounter Visit Diagnoses Not on filedocumented in this encounter"
--- OUTSIDE RECORDS SUMMARY | ~2019-08-28 | XMS | Encounter Summary ---
Demographics + + + | Address | [address] | | | [place] [address] | + + + | Home Phone | | + + + | Preferred Language | Unknown | + + + | Marital Status | Single | + + + | Scientologist Affiliation | CAT | + + + [...] Samantha Ramos | ECON | [address] # | | | | | [place] | | | | | [address] | | + + + + + Care Team Providers + +------+ + | Care Service Operations Manager Name | Role | Phone [...] 2005 | Only | PPV [address] | DEVELOPER ARCHITECT [address] | | | | | [address] | [address] | | | | | Mailcode: PV430 | [place] [address] | | | | | [facility] | [phone] | | | | | [place], [place] | | | | | | [address] | | | | | | [phone] | | | +--------+ + + + [...] 2019 | Encounter | | MD Harris [address] | | | | | | [place] | | | | | | [place] [address] | | | | | | [phone] | | | | | | | [...] | | | | | | [place] [address] | | | | | | [phone] | | | | | | | | +--------+ + + + + | 09/13/ | Office | Hematology & | Rodney | | | 2019 | Visit | Oncology | MD Leo Lees | | | | | | [place] | | | | | | [place] [address] | | | | | | [phone] | | | | | | | | +--------+ + + + + | 01/24/ | Office | Surgery | Neri Steven MD | | | 2019 | Visit | | [address] | | | | | | [place], | | | | | | [place] [address] | | | | | | [phone] | | | | | | | [...]
--- OUTSIDE RECORDS SUMMARY | ~2019-08-28 | XMS | Encounter Summary ---
Demographics + + + | Address | [address] | | | [place] [address] | + + + | Home Phone | | + + + | Preferred Language | Unknown | + + + | Marital Status | Single | + + + | Oriental Orthodox [...] Gia Ramos | ECON | [address] | | | | | [place] | | | | | [address] | | + + + + + Care Team Providers + +------+ + | Care Speech Scientist Name | Role | Phone | + +------+ + | Erich Yates | PCP | | + +------+ + Encounter Details +--------+ + + + + | Date | Type | Department | Care Team | Description | +--------+ + + + + | 03/16/ | Orders Only | [facility] | Conversion | | | 2018 | | NEPHROLOGY [place] | Transaction, | | | | | [address] | Provider Unknown | | | | | [address] [place], [place] | | | | | | [address] | (Fax) | | | | | [phone] | | | +--------+ + + + [...]
--- OUTSIDE RECORDS SUMMARY | ~2019-08-28 | XMS | Encounter Summary ---
Demographics + + + | Address | [address] | | | [place] [address] | + + + | Home Phone [...] + + + | Author | [facility] | | | and [place] | + + + | Organization | [facility] | | [...] | [place] | | | | | [address] | | + + + + + Care Team Providers + +------+ + | Care Flight Inspector Name | Role | Phone | [...] [address] | | | | | IMAGING | [address] | | | | | [phone] | [place] [address] | | +--------+ + + + + [...]
--- OUTSIDE RECORDS SUMMARY | ~2019-08-28 | XMS | Encounter Summary ---
Demographics + + + | Address | [address] | | | [place] [address] | + + + | Home Phone | | + + + | Preferred Language | Unknown | + + + | Marital Status | Single | + + + | Methodist Affiliation | Unknown | + + + [...] | Gia Ramos | ECON | [address] | | | | | [place] | | | | | [address] | | + + + + + Care Team Providers + +------+ + | Care Yard Truck Driver Name | Role | Phone | [...] | 09/19/ | Anesthesia | [facility] | Tereso Dillon, | | | 2017 | Event | MED CTR [facility] INTRA OP | MD [address] | | | | | [address] | [place] | | | | | [place] | [address] | | | | | [address] | | | | | | [phone] | | | +--------+ + + + [...] +----+---+ + + | | 2 | [place] | | | | 0 | 43-degrees | | | | 4 | | | | | 8 | | | +----+---+ + + | | 2 | First | | | | 0 | Inc/Proc St | | | | 5 | | | | | 4 | | | +----+---+ + + | | 2 | [place] off | | | | 1 | [...] - 09/19/2018 8:55 PM PST Anesthesia Airway Bcxlleifn98/25/2018 | | 20:40Preprocedure check: patient identified, suction, [...]
--- OUTSIDE RECORDS SUMMARY | ~2019-08-28 | XMS | Encounter Summary ---
Demographics + + + | Address | [address] | | | [place] [address] | + + + | Home Phone [...] | Gia Ramos | ECON | [address] | | | | | [place] | | | | | [address] | | + + + + + Care Team Providers + +------+ + | Care Manager Employment Name | Role | Phone | + [...] + + | 09/29/ | Office | [facility] | Tc Mora | Nephrolithiasis | | 2019 | Visit | [address] | MD Boyd [address] | (Primary Dx); | | | | [place], [place] | [place], [place] | Hyperkalemia; Stage | | | | [address] | [address] | 3 chronic kidney | | | | [phone] | | disease (HCC) | +--------+---------+ + [...] PLACEMENT; Surgeon: Tc Mora MD; Location: [facility] [place] Family History: Family History [...] pH, Urine 6.0 5.0 - 8.0 Specific [place] 1.012 1.001 - 1.030 Protein, Urine 100 [...] ECGs available Confirmed by CRISTINE HUDDLESTON MD ([id number]) on 09/21/2018 6:31:13 AM Lab Results Component [...] have not thoroughly proofread this note, and cigarette package examiner errors are very likely to occur. CC: [...]
--- OUTSIDE RECORDS SUMMARY | ~2019-08-28 | XMS | Encounter Summary ---
Demographics + + + | Address | [address] | | | [place] [address] | + + + | Home Phone [...] Samantha Ramos | ECON | [address] # | | | | | [place] | | | | | [address] | | + + + + + Care Team Providers + +------+ + | Care Creative Designer Name | Role | Phone | + +------+ + PCP | Unavailable | + +------+ + Encounter Details +--------+ + + + + | Date | Type | Department | Care Team | Description | +--------+ + + + + | 09/30/ | Office | [facility] | Clinic, Pediatric | Progress Note | | 2005 | Visit-Trans | VERIFICATION SPECIALIST | Endocrinology | | | | cribed [...] as of this encounter Progress Notes Interface, Test Engine Mechanic In - 04/25/2005 12:43 AM PDT [id number] NAHOMY RAYMOND [facility] Date: 09/30/2004 [...] eats. DENISSE Carr, CNSD, LD AT / [id number] / [id number] / [id number] / documented i n this encounter Plan of Treatment +--------+ + + + + | Date | Type | Specialty | Care Team | Description | +--------+ + + + + | 09/03/ | Hospital | | Greg Mathis | | | 2019 | Encounter | | MD Harris [address] | | | | | | [place], | | | | | | [place] [address] | | | | | | [phone] | | | | | | | [...] | | | | | | [place] [address] | | | | | | [phone] | | | | | | | | +--------+ + + + + | 09/13/ | Office | Hematology & | Rodney, | | | 2018 | Visit | Oncology | MD Nabeel [address] | | | | | | [place], | | | | | | [place] [address] | | | | | | [phone] | | | | | | | | +--------+ + + + + | 01/24/ | Office | Surgery | Neri Steven MD | | | 2019 | Visit | | [address] | | | | | | [place] | | | | | | [place] [address] | | | | | | [phone] | | | | | | | | +--------+ + + + + documented as of this encounter Visit Diagnoses Not on filedocumented in this encounter"
--- OUTSIDE RECORDS SUMMARY | ~2019-08-28 | XMS | Encounter Summary ---
Demographics + + + | Address | [address] | | | [place] [address] | + + + | Home Phone [...] | Gia Ramos | ECON | [address] | | | | | [place] | | | | | [address] | | + + + + + Care Team Providers + +------+ + | Care Credit Verification Clerk Name | Role | Phone | + +------+ + | Erich Yates | PCP | | + +------+ + Encounter Details +--------+ + + + + | Date | Type | Department | Care Team | Description | +--------+ + + + + | 09/13/ | Orders Only | [facility] | Conversion | | | 2017 | | NEPHROLOGY [place] | Transaction, | | | | | [address] | Provider Unknown | | | | | [address] [place], [place] | | | | | | [address] | (Fax) | | | | | [phone] | | | +--------+ + + + [...] - 1.030 | EXTERNAL | | | [place] | | | LAB | | + [...] - 1.030 | EXTERNAL | | | [place] | | | LAB | | + [...]
--- OUTSIDE RECORDS SUMMARY | ~2019-08-28 | XMS | Encounter Summary ---
Demographics + + + | Address | [address] | | | [place] [address] | + + + | Home Phone [...] Samantha Ramos | ECON | [address] # | | | | | [place] | | | | | [address] | | + + + + + Care Team Providers + +------+ + | Care Corrugator Operator Name | Role | Phone | [...] Rd | | | | | [facility] | [place], [place] | | | | | [address] [facility] | [address] | | | | | [facility] Mailcode: | [phone] | | | | | [address] | | | | | | [place], [place] | | | | | | [address] | | | | | | [phone] | | | +--------+--------+ + + + [...] | | | | | | [place] [address] | | | | | | [phone] | | | | | | | [...] | | | | | | [place] [address] | | | | | | [phone] | | | | | | | | +--------+ + + + + | 09/13/ | Office | Hematology & | Rodney, | | | 2018 | Visit | Oncology | MD Nabeel [address] | | | | | | [place], | | | | | | [place] [address] | | | | | | [phone] | | | | | | | | +--------+ + + + + | 01/24/ | Office | Surgery | Neri Steven MD | | | 2019 | Visit | | [address] | | | | | | [place], | | | | | | [place] [address] | | | | | | [phone] | | | | | | | | +--------+ + + + + documented as of this encounter Visit Diagnoses Not on filedocumented in this encounter"
--- OUTSIDE RECORDS SUMMARY | ~2019-08-28 | XMS | Encounter Summary ---
Demographics + + + | Address | [address] | | | [place] [address] | + + + | Home Phone [...] | Author | [facility] | | | and [place] | + + + | Organization | [facility] | | | and [place] | + + + | Address | Unknown | + + + | Phone | Unavailable | + + + Support + + + + + | Name | Relationship | Address | Phone | + + + + + | Gia Ramos | ECON | [address] | | | | | [place] | | | | | [address] | | + + + + + Care Team Providers + +------+ + | Care Fitness Professional Name | Role | Phone | [...] | [address] [place] | [place], [place] [address] | (Primary Dx); Weight | | | | [address] [place], [place] | [place], [place] | loss; Malnutrition, | | | | [address] | [address] | unspecified type | | | | [phone] | | ([facility]); 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 | | | | | | ([facility]); Anemia of | | | | | | chronic renal | | | | | | failure, stage 3 | | | | | | (moderate) ([facility]) | +--------+ + + + + [...]
--- OUTSIDE RECORDS SUMMARY | ~2019-08-28 | XMS | Encounter Summary ---
Demographics + + + | Address | [address] | | | [place] [address] | + + + | Home Phone [...] + + + | Author | [facility] | | | and [place] | + + + | Organization | [facility] | | | and [place] | + + + | Address | Unknown | + + + | Phone | Unavailable | + + + Support + + + + + | Name | Relationship | Address | Phone | + + + + + | Gia Ramos | ECON | [address] | | | | | [place] | | | | | [address] | | + + + + + Care Team Providers + +------+ + | Care Catcher Helper Name | Role | Phone | + +------+ + | Erich Yates | PCP | | + +------+ + Encounter Details +--------+ + + + + | Date | Type | Department | Care Team | Description | +--------+ + + + + | 01/11/ | Orders Only | [facility] | Conversion | | | 2018 | | NEPHROLOGY [place] | Transaction, | | | | | [address] | Provider Unknown | | | | | [address] [place], [place] | | | | | | [address] | (Fax) | | | | | [phone] | | | +--------+ + + + [...]
--- OUTSIDE RECORDS SUMMARY | ~2019-08-28 | XMS | Clinical Summary ---
Demographics + + + | Address | [address] [facility] | | | [place] [address] | + + + | Home Phone | | + + + | Preferred Language | Unknown | + + + | Marital Status | Unknown | + + + | Alevism Affiliation | Unknown | + + + | Race | Unknown | + + + | Ethnic Group | Unknown | + + + Author + + + | Author | [facility] (Historical as of | | | 05-12-19) | + + + | Organization | [facility] (Historical as of | | | 05-12-19) [...] Team Providers + +------+ + | Care Tax Lawyer Name | Role | Phone | + [...] CKD (chronic kidney disease), stage III ([facility]) | 01/15/2019 | + + + | [...] +------+-------+ + | MEDICAID | [place] | [id number] | | | [address] | | | N | | | | [place], [place] | | | [place] | | | | [address] | | | CERTIFIED FIRE INVESTIGATOR | | | | | + +--------+ [...] Self | [birth year] | Home: | [address] | | | al/Fam | | 1990 | [phone] [address] [place], | | | [place]ian | | | [address] | [place] [address] | + +--------+ +--------+ + +
--- OUTSIDE RECORDS SUMMARY | ~2019-08-28 | XMS | Encounter Summary ---
Demographics + + + | Address | [address] | | | [place] [address] | + + + | Home Phone [...] | Gia Ramos | ECON | [address] | | | | | [place] | | | | | [address] | | + + + + + Care Team Providers + +------+ + | Care Compressor Technician Name | Role | Phone | + +------+ + | Erich Yates | PCP | | + +------+ + Encounter Details +--------+ + + + + | Date | Type | Department | Care Team | Description | +--------+ + + + + | 04/18/ | Orders Only | [facility] | Provider, | Chronic kidney | | 2019 | | SYSTEM GENERIC OP | MD [address] | disease, stage III | | | | CONVERSION [address] | [address] | (moderate) ([facility]); | | | | [address] [place], [place] | [place] [address] | Proteinuria; Type 1 | | | | [address] | | diabetes mellitus | | | | [phone] | | with diabetic | | | | | | nephropathy ([facility]); | | | | | | Chronic kidney | | | | | | disease, stage III | | | | | | (moderate) ([facility]) | +--------+ + + + + Social [...] | | Indicated | | | (moderate) ([facility]) | 01/15/2021 | | | | | Proteinuria Type 1 | | | | | | diabetes mellitus | | | | | | with diabetic | | | | | | nephropathy ([facility]) | | | | | | Chronic kidney | | | | | | disease, stage III | | | | | | (moderate) ([facility]) | | + +------+--------+ + + | Protein/Creatinine | Lab | Routin | Chronic kidney | Expected: | | Ratio, Urine | | e | disease, stage III | 03/07/2019, Expires: | | | | | (moderate) ([facility]) | 01/15/2021 | | | | | Proteinuria Type 1 | | | | | | diabetes mellitus | | | | | | with diabetic | | | | | | nephropathy ([facility]) | | | | | | Chronic kidney | | | | | | disease, stage III | | | | | | (moderate) ([facility]) | | + +------+--------+ + + documented as of this encounter Visit Diagnoses + + | Diagnosis | + + | Chronic kidney disease, stage III (moderate) (HCC) Chronic kidney disease, Stage III | | (moderate) | + + | Proteinuria | + + | 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
--- OUTSIDE RECORDS SUMMARY | ~2019-08-28 | XMS | Encounter Summary ---
[...] Samantha Ramos | ECON | [address] | | | | | [place] | | | | | [address] | | + + + + + Care Team Providers + +------+ + | Care Director Of Mechanical Engineering Name | Role | Phone | + [...] | | 2015 | | Center at [facility] [address] | | - General | | | | [address] [place] | | | | | | Mailcode: Center | | | | | | for Health and | | | | | | [facility], [facility] [address] | | | | | | [place], [place] | | | | | | [address] | | | | | | [phone] | | | +--------+ + + + [...] 2018 | Encounter | | MD Harris [address] | | | | | | [place], | | | | | | [place] [address] | | | | | | [phone] | | | | | | | | +--------+ + + + + | 09/03/ | Appointment | Procedural Care Unit | | | | 2018 | | | | | +--------+ + + + + | 09/03/ | Appointment | Gastroenterology | Greg Mathis | | | 2018 | | | MD Harris [address] | | | | | | [place], | | | | | | [place] [address] | | | | | | [phone] | | | | | | | | +--------+ + + + + | 09/13/ | Office | Hematology & | Rodney | | | 2018 | Visit | Oncology | MD Nabeel [address] | | | | | | [place], | | | | | | [place] [address] | | | | | | [phone] | | | | | | | | +--------+ + + + + | 01/24/ | Office | Surgery | Neri Steven MD | | | 2019 | Visit | | [address] | | | | | | [place], | | | | | | [place] [address] | | | | | | [phone] | | | | | | | | +--------+ + + + + documented as of this encounter Visit Diagnoses Not on filedocumented in this encounter"
--- OUTSIDE RECORDS SUMMARY | ~2019-08-28 | XMS | Encounter Summary ---
Demographics + + + | Address | [address] | | | [place] [address] | + + + | Home Phone [...] | Gia Ramos | ECON | [address] | | | | | [place] | | | | | [address] | | + + + + + Care Team Providers + +------+ + | Care Press Operator Printing Name | Role | Phone | + [...] + + | 06/22/ | Telephone | [facility] | Winston Whitman MD | Other (Appointment | | 2019 | | NEPHROLOGY [place] | [address] | reminder call) | | | | [address] | [address] [facility] [place] | | | | | [address] [place], [place] | [id number] | | | | | [address] | | | | | | [phone] | | | +--------+ + + + [...]
--- OUTSIDE RECORDS SUMMARY | ~2019-08-28 | XMS | Encounter Summary ---
Demographics + + + | Address | [address] | | | [place] [address] | + + + | Home Phone [...] Samantha Ramos | ECON | [address] | | | | | [place] | | | | | [address] | | + + + + + Care Team Providers + +------+ + | Care Retirement Consultant Name | Role | Phone | [...] Pharmacy | | | | | | [address] | | | | | | [place], | | | | | | [place] [address] | | | | | | [phone] | | | +--------+ + + + [...] | | | | | | [place] [address] | | | | | | [phone] | | | | | | | [...] | | | | | | [place] [address] | | | | | | [phone] | | | | | | | | +--------+ + + + + | 09/13/ | Office | Hematology & | Rodney, | | | 2018 | Visit | Oncology | MD Nabeel [address] | | | | | | [place] | | | | | | [place] [address] | | | | | | [phone] | | | | | | | | +--------+ + + + + | 01/24/ | Office | Surgery | Neri Steven MD | | | 2019 | Visit | | [address] | | | | | | [place], | | | | | | [place] [address] | | | | | | [phone] | | | | | | | | +--------+ + + + + documented as of this encounter Visit Diagnoses Not on filedocumented in this encounter"
--- OUTSIDE RECORDS SUMMARY | ~2019-08-28 | XMS | Encounter Summary ---
Demographics + + + | Address | [address] | | | [place] [address] | + + + | Home Phone [...] | [place] | | | | | [address] | | + + + + + Care Team Providers + +------+ + | Care Senior Safety Support Manager Name | Role | Phone | + +------+ + | Erich Yates | PCP | | + +------+ + Encounter Details +--------+ + + + + | Date | Type | Department | Care Team | Description | +--------+ + + + + | 02/01/ | Abstract | [facility] | Divya, | | | 2018 | | GASTROENTEROLOGY | MD [address] | | | | | [address] [facility] | [address] | | | | | [address] [place] [place] | [place] [address] | | | | | [address] | | | | | | [phone] | | | +--------+ + + + [...] - 1.03 | EXTERNAL | | | [place], | | | LAB | | | [...] eGFR, | 54 (A) | 60 - 7,999 | EXTERNAL | | | External | [...]
--- OUTSIDE RECORDS SUMMARY | ~2019-08-28 | XMS | Encounter Summary ---
Demographics + + + | Address | [address] | | | [place] [address] | + + + | Home Phone [...] [place] | | | | | [address] | | + + + + + Care Team Providers + +------+ + | Care Horticultural Specialty Grower Inside Name | Role | Phone | + [...] Only | PPV [address] | APPLICATION TECHNICAL DESIGNER [address] | | | | | [address] | [address] | | | | | Mailcode: PV430 | [place] [address] | | | | | [facility] | [phone] | | | | | [place], [place] | | | | | | [address] | | | | | | [phone] | | | +--------+ + + + [...] 2019 | Encounter | | MD Harris [address] | | | | | | [place] | | | | | | [place] [address] | | | | | | [phone] | | | | | | | [...] | | | | | | [place] [address] | | | | | | [phone] | | | | | | | | +--------+ + + + + | 09/13/ | Office | Hematology & | Rodney | | | 2019 | Visit | Oncology | MD Leo Lees | | | | | | [place] | | | | | | [place] [address] | | | | | | [phone] | | | | | | | | +--------+ + + + + | 01/24/ | Office | Surgery | Neri Steven MD | | | 2019 | Visit | | [address] | | | | | | [place], | | | | | | [place] [address] | | | | | | [phone] | | | | | | | [...]
--- OUTSIDE RECORDS SUMMARY | ~2019-08-28 | XMS | Encounter Summary ---
Demographics + + + | Address | [address] | | | [place] [address] | + + + | Home Phone [...] Samantha Ramos | ECON | [address] # | | | | | [place] | | | | | [address] | | + + + + + Care Team Providers + +------+ + | Care Facilities Operator Name | Role | Phone | [...] Mailcode: | | | | | | [place], [place] | [address] | | | | | manifestatio | [address] | for Health | | | | | n (FORMERLY [facility]) | Phone: | and Healing, | | | | | Procedures | [phone] | Building 1, | | | | | CONSULT TO | Fax: | 11th Floor | | | | | OPHTHALMOLOG | [phone] | [place], [place] | | | | | Y | | [address] | | | | | | | Phone: | | | | | | | [phone] | | | | | | | Fax: | | | | | | | [phone] | +--------+--------+ + + + + Reason [...] | | | | | without | [facility] | [facility] | | | | | coma | Rd | Rd | | | | | associated | [place], [place] | Physician's | | | | | with type 1 | [address] | [facility] | | | | | diabetes | Phone: | [address] | | | | | mellitus | [phone] | [place], [place] | | | | | (FORMERLY [facility]) Type | Fax: | [address] | | | | | 1 diabetes | [phone] | Phone: | | | | | mellitus | | [phone] | | | | | with | | Fax: | | | | | hyperglycemi | | [phone] | | | | | a (HCC) [...] | | | [address] | [place], [place] | ([facility]ER[facility]) (Primary Dx); | | | | [address] | [address] | Hyperglycemia due to | | | | Physician's | [phone] | type 1 diabetes | | | | [facility] [address] [address] | | mellitus (HCC); Leg | | | | [place], [place] | | wound, right, | | | | [address] | | initial encounter | | | | [phone] | | | +--------+---------+ + + + [...] might be different f rom the original. [facility] Diabetes [facility] New Patient Consultation Referring physician: Jaison Pascual DO Primary care provider: Jaison Pascual DO Reason for Consultation: Type 1 diabetes History of Present Illness: This is a new patient to my clinic. Brooks Marquez II is a 24 y.o. male referred for evaluation of type 1 diabetes. Diagnosed in 2001. Seen in childhood in [facility] pediatric endocr inology. Long-standing suboptimal control. Diabetes complicated by gastroparesis and has bee n seen in the ER frequently. Multiple past episodes of DKA, most recently earlier this month at [facility]. Frequent nausea. Doing well since discharge and no current issues with vomiting. N o numbness/tingling. Did not have insurance for a period of time and was paying out of [employer] for his insulin approx 1 year ago [...] tobacco use: 1/2 ppd. 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 Allergies: Allergies Allergen Reactions Codeine Nausea and [...] random - Final result (09/02/2015 8:48 AM [facility]) Component Value Range Microalb, Ur 1337.2 (H) [...] Hyperglycemia due to type 1 diabetes mellitus ([facility]) S81.801A Leg wound, right, initial encounter [...] in lower extremities. 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 Discussed conservative measures for wound and signs/symptoms [...] 2018 | Encounter | | MD [address] | | | | | | [place], | | | | | | [place] [address] | | | | | | [phone] | | | | | | | | +--------+ + + + + | 09/03/ | Appointment | Procedural Care Unit | | | | 2018 | | | | | +--------+ + + + + | 09/03/ | Appointment | Gastroenterology | Greg Mathis | | | 2018 | | | MD Harris [address] | | | | | | [place], | | | | | | [place] [address] | | | | | | [phone] | | | | | | | | +--------+ + + + + | 09/13/ | Office | Hematology & | Rodney, | | | 2018 | Visit | Oncology | MD Nabeel [address] | | | | | | [place], | | | | | | [place] [address] | | | | | | [phone] | | | | | | | | +--------+ + + + + | 01/24/ | Office | Surgery | Neri Steven MD | | | 2019 | Visit | | [address] | | | | | | [place], | | | | | | [place] [address] | | | | | | [phone] | | | | | | | [...] | + + + + + | [facility] | [address] | [place] [address] | | | SERVICES, CORE | ZENA [...]
--- OUTSIDE RECORDS SUMMARY | ~2019-08-28 | XMS | Encounter Summary ---
Demographics + + + | Address | [address] | | | [place] [address] | + + + | Home Phone [...] Samantha Ramos | ECON | [address] # | | | | | [place] | | | | | [address] | | + + + + + Care Team Providers + +------+ + | Care Chin Strap Sewer Name | Role | Phone | + [...] [address] | | | | | [place], [place] | [place], [place] | | | | | [address] | [address] | | | | | [phone] | [phone] | | | | | | | [...] 2019 | Encounter | | MD Harris [address] | | | | | | [place], | | | | | | [place] [address] | | | | | | [phone] | | | | | | | [...] | | | | | | [place] [address] | | | | | | [phone] | | | | | | | | +--------+ + + + + | 09/13/ | Office | Hematology & | Rodney | | | 2019 | Visit | Oncology | MD Leo Lees | | | | | | [place] | | | | | | [place] [address] | | | | | | [phone] | | | | | | | | +--------+ + + + + | 01/24/ | Office | Surgery | Neri Steven MD | | | 2019 | Visit | | [address] | | | | | | [place], | | | | | | [place] [address] | | | | | | [phone] | | | | | | | [...] | | | | | performed by Hassan | uIU/maurizio | | | | | [facility] | | | | | | Musikki. | | | | + + + + + + + + | Specimen | + + | | + + + + + + + | Performing | Address | City/State/Zipcode | Phone Number | | Organization | | | | + + + + + | [facility] | [address] | [place] [address] | | | LABORATORY | | | [...] [place] | | | | | | Laboratories. | | | | + + + + + + + + | Specimen | + + | | + + + + + + + | Performing | Address | City/State/Zipcode | Phone Number | | Organization | | | | + + + + + | [facility] | [address] | [place] [address] | | | LABORATORY | | | | + + + + + documented in this encounter Visit Diagnoses Not on filedocumented in this encounter"
--- OUTSIDE RECORDS SUMMARY | ~2019-08-28 | XMS | Encounter Summary ---
Demographics + + + | Address | [address] | | | [place] [address] | + + + | Home Phone [...] Samantha Ramos | ECON | [address] # | | | | | [place] | | | | | [address] | | + + + + + Care Team Providers + +------+ + | Care Manager Commercial Name | Role | Phone | + [...] Rd | | | | | [facility] | [place], [place] | | | | | [address] | [address] | | | | | [place] Mailcode: | [phone] | | | | | [address] | | | | | | [place], [place] | | | | | | [address] | | | | | | [phone] | | | +--------+ + + + [...] 2019 | Encounter | | MD Harris [address] | | | | | | [place], | | | | | | [place] [address] | | | | | | [phone] | | | | | | | | +--------+ + + + + | 09/03/ | Appointment | Procedural Care Unit | | | | 2018 | | | | | +--------+ + + + + | 09/03/ | Appointment | Gastroenterology | rGeg Mathis | | | 2018 | | | MD Leo Iglesias | | | | | | [place] | | | | | | [place] [address] | | | | | | [phone] | | | | | | | | +--------+ + + + + | 09/13/ | Office | Hematology & | Rodney | | | 2018 | Visit | Oncology | MD Leo Lees | | | | | | [place] | | | | | | [place] [address] | | | | | | [phone] | | | | | | | | +--------+ + + + + | 01/24/ | Office | Surgery | Neri Steven MD | | | 2019 | Visit | | [address] | | | | | | [place], | | | | | | [place] [address] | | | | | | [phone] | | | | | | | [...] VERITO VERDE | [address] | [place], [place] | | | [facility] | [facility] | [address] | | | TESTS | | | | + + + + + | [facility] | [address] | [place], [place] | | | TESTS | [facility] | [address] | | + + + + + documented in this encounter Visit Diagnoses Not on filedocumented in this encounter"
--- OUTSIDE RECORDS SUMMARY | ~2019-08-28 | XMS | Encounter Summary ---
Demographics + + + | Address | [address] | | | [place] [address] | + + + | Home Phone | | + + + | Preferred Language | Unknown | + + + | Marital Status | Single | + + + | Sabianist Affiliation | CAT | + + + [...] Samantha Ramos | ECON | [address] # | | | | | [place] | | | | | [address] | | + + + + + Care Team Providers + +------+ + | Care Childcare Administrator Name | Role | Phone | [...] | | | | Mailcode: PV430 | [facility] [place] | | | | | [facility] | [address] | | | | | [place], [place] | [phone] | | | | | [address] | | | | | | [phone] | | | +--------+ + + + [...] 2019 | Encounter | | MD Harris [address] | | | | | | [place], | | | | | | [place] [address] | | | | | | [phone] | | | | | | | | +--------+ + + + + | 09/03/ | Appointment | Procedural Care Unit | | | | 2018 | | | | | +--------+ + + + + | 09/03/ | Appointment | Gastroenterology | Greg Mathis | | | 2018 | | | MD Harris [address] | | | | | | [place], | | | | | | [place] [address] | | | | | | [phone] | | | | | | | | +--------+ + + + + | 09/13/ | Office | Hematology & | Rodney | | | 2019 | Visit | Oncology | MD Leo Lees | | | | | | [place], | | | | | | [place] [address] | | | | | | [phone] | | | | | | | | +--------+ + + + + | 01/24/ | Office | Surgery | Neri Steven MD | | | 2020 | Visit | | [address] | | | | | | [place], | | | | | | [place] [address] | | | | | | [phone] | | | | | | | | +--------+ + + + + documented as of this encounter Visit Diagnoses Not on filedocumented in this encounter"
--- OUTSIDE RECORDS SUMMARY | ~2019-08-28 | XMS | Encounter Summary ---
Demographics + + + | Address | [address] | | | [place] [address] | + + + | Home Phone | | + + + | Preferred Language | Unknown | + + + | Marital Status | Single | + + + | Episcopal Affiliation | CAT | + + + [...] Samantha Ramos | ECON | [address] # | | | | | [place], [place] | | | | | [address] | | + + + + + Care Team Providers + +------+ + | Care Construction Framer Name | Role | Phone | + [...] Rd | | | | | | [place], [place] | | | | | | [address] | | | | | | [phone] | | | | | | | [...] 2018 | Encounter | | MD Harris [address] | | | | | | [place], | | | | | | [place] [address] | | | | | | [phone] | | | | | | | | +--------+ + + + + | 09/03/ | Appointment | Procedural Care Unit | | | | 2018 | | | | | +--------+ + + + + | 09/03/ | Appointment | Gastroenterology | Greg Mathis | | | 2018 | | | MD Harris [address] | | | | | | [place], | | | | | | [place] [address] | | | | | | [phone] | | | | | | | | +--------+ + + + + | 09/13/ | Office | Hematology & | Rodney, | | | 2018 | Visit | Oncology | MD Nabeel [address] | | | | | | [place], | | | | | | [place] [address] | | | | | | [phone] | | | | | | | | +--------+ + + + + | 01/24/ | Office | Surgery | Neri Steven MD | | | 2019 | Visit | | [address] | | | | | | [place], | | | | | | [place] [address] | | | | | | [phone] | | | | | | | [...] | + + + + + | [facility] DEPARTMENT OF | [address] [place] [address] [address] | [place] [address] | | | PATHOLOGY | [address] | | | + + + + + | [place] DEPARTMENT OF | [address] [address] | [place] [address] | | | PATHOLOGY | [address] [...] | + + + + + | [facility] DEPARTMENT OF | [address] [facility] | [place] [address] | | | PATHOLOGY | [address] | | | + + + + + | [facility] DEPARTMENT OF | [address] [facility] | [place] [address] | | | PATHOLOGY | [address] [...] | + + + + + | [facility][1] | [address] [facility] | [place] [address] | | | PATHOLOGY | [address] | | | + + + + + | [facility] DEPARTMENT | [address] [facility] | [place] [address] | | | PATHOLOGY | [address] [...] | + + + + + | [facility] DEPARTMENT OF | [address] | [place] [address] | | | PATHOLOGY | [address] | | | + + + + + | [facility] DEPARTMENT OF | [address] | [place] [address] | | | PATHOLOGY | [address] | | | + + + + + GLUCOSE, WHOLE BLOOD (12/03/2002 6:00 AM PST) + +---------+ + + + | Component | Value | Ref Range | Performed | Pathologist | | | | | At | Signature | + +---------+ + + + | GLUCOSE,WHO | 216 (H) | 65 - 110 mg/dL | [facility] | | | LE BLOOD | | [...] | + + + + + | [facility][1] | [address] [facility] | [place] [address] | | | PATHOLOGY | [address] | | | + + + + + | [facility][1] | [facility] | [place] [address] | | | PATHOLOGY | [address] [...] Performed At | + + + | [id number] CALCIUM Checked and phoned. | [facility] | | | DEPARTMENT OF | | | PATHOLOGY | + + + + + + + + | Performing | Address | City/State/Zipcode | Phone Number | | Organization | | | | + + + + + | [place] DEPARTMENT OF | [address] [facility] | [place] [address] | | | PATHOLOGY | [address] | | | + + + + + | [facility] DEPARTMENT OF | [facility] | [place] [address] | | | PATHOLOGY | [address] | | | + + + + + CHEMISTRY MASTER PANEL (12/03/2002 6:00 AM PST) + + | Specimen | + + | | + + + + + | Narrative | Performed At | + + + | [id number] CALCIUM Checked and phoned. | [facility] | | | DEPARTMENT OF | | | PATHOLOGY | + + + + + + + + | Performing | Address | City/State/Zipcode | Phone Number | | Organization | | | | + + + + + | [facility] DEPARTMENT | [address] [facility] | [place] [address] | | | PATHOLOGY | [address] | | | + + + + + | [facility][1] | [facility] | [place] [address] | | | PATHOLOGY | [address] [...] | + + + + + | [facility] DEPARTMENT OF | [address] [facility] | [place] [address] | | | PATHOLOGY | [address] | | | + + + + + | [facility] DEPARTMENT OF | [address] [facility] | [place] [address] | | | PATHOLOGY | [address] [...] | + + + + + | [facility][1] | [address] [facility] | [place] [address] | | | PATHOLOGY | [address] | | | + + + + + | [facility][1] | [address] [facility] | [place] [address] | | | PATHOLOGY | [address] [...] | + + + + + | [facility] DEPARTMENT OF | [address] [facility] | [place] [address] | | | PATHOLOGY | [address] | | | + + + + + | [place] DEPARTMENT OF | [address] [facility] | [place] [address] | | | PATHOLOGY | [address] [...] + + | [facility] DEPARTMENT OF | [address] | [place] [address] | | | PATHOLOGY | [address] | | | + + + + + | [facility][1] | [address] | [place] [address] | | | PATHOLOGY | [address] [...] | | | | Test performed by René | | | | | | [facility] | | | | | | Laboratories. | | | | + + + + + + + + | Specimen | + + | | + + + + + + + | Performing | Address | City/State/Zipcode | Phone Number | | Organization | | | | + + + + + | [facility] | [address] | [place] [address] | | | LABORATORY | | | [...] | + + + + + | [facility] DEPARTMENT OF | [address] [facility] | [place] [address] | | | PATHOLOGY | [address] | | | + + + + + | [facility] DEPARTMENT OF | [address] [facility] | [place] [address] | | | PATHOLOGY | [address] [...] Performed At | + + + | [id number] Checked and phoned. CO2 [id number] Checked and phoned. | [facility] | | | DEPARTMENT OF | | | PATHOLOGY | + + + + + + + + | Performing | Address | City/State/Zipcode | Phone Number | | Organization | | | | + + + + + | [facility][1] | [address] | [place] [address] | | | PATHOLOGY | [address] | | | + + + + + | [facility][1] | [facility] [address] | [place] [address] | | | PATHOLOGY | [address] [...] Performed At | + + + | [id number] Checked and phoned. CO2 [id number] Checked and phoned. | [facility] | | | DEPARTMENT OF | | | PATHOLOGY | + + + + + + + + | Performing | Address | City/State/Zipcode | Phone Number | | Organization | | | | + + + + + | [facility] DEPARTMENT OF | [facility] | [place] [address] | | | PATHOLOGY | [address] | | | + + + + + | [place] DEPARTMENT OF | [facility] | [place] [address] | | | PATHOLOGY | [address] [...] Performed At | + + + | [id number] Checked and phoned. CO2 [id number] Checked and phoned. | [facility] | | | DEPARTMENT OF | | | PATHOLOGY | + + + + + + + + | Performing | Address | City/State/Zipcode | Phone Number | | Organization | | | | + + + + + | [facility] DEPARTMENT OF | [address] [facility] | [place] [address] | | | PATHOLOGY | [address] | | | + + + + + | [facility] DEPARTMENT OF | [address] [facility] | [place] [address] | | | PATHOLOGY | [address] | | | + + + + + CHEMISTRY MASTER PANEL (12/02/2002 6:45 PM PST) + + | Specimen | + + | | + + + + + | Narrative | Performed At | + + + | [id number] Checked and phoned. CO2 [id number] Checked and phoned. | [facility] | | | DEPARTMENT OF | | | PATHOLOGY | + + + + + + + + | Performing | Address | City/State/Zipcode | Phone Number | | Organization | | | | + + + + + | [facility][1] | [address] | [place] [address] | | | PATHOLOGY | [address] | | | + + + + + | [facility][1] | [address] | [place] [address] | | | PATHOLOGY | [address] | | | + + + + + documented in this encounter Visit Diagnoses Not on filedocumented in this encounter"
--- OUTSIDE RECORDS SUMMARY | ~2019-08-28 | XMS | Encounter Summary ---
Demographics + + + | Address | [address] | | | [place] [address] | + + + | Home Phone | | + + + | Preferred Language | Unknown | + + + | Marital Status | Single | + + + | Alevism Affiliation | CAT | + + + [...] Samantha Ramos | ECON | [address] # | | | | | [place] | | | | | [address] | | + + + + + Care Team Providers + +------+ + | Care Laundry Room Attendant Name | Role | Phone | [...] | Diabetic | Lashawn Tan, | [address] | | | | | gastroparesi | [address] | [place] | | | | | s (HCC) | [address] [facility] | Mailcode: | | | | | Procedures | [facility] | [facility] | | | | | CONSULT TO | Rd | Health and | | | | | SURGERY - | [facility], [place] | Healing, | | | | | GENERAL | [address] | [address] | | | | | CONSULT TO | Phone: | [place], [place] | | | | | SURGERY - | [phone] | [address] | | | | | GENERAL | Fax: | Phone: | | | | | | [phone] | [phone] | | | | | | | Fax: | | | | | | | [phone] | + +--------+ + + + + [...] | | | | | abdominal | COCOA BEAN ROASTER HELPER [address] | Mailcode: | | | | | pain | Tiger | [facility] | | | | | | Hope | [facility] and | | | | | | [address] | Healing, | | | | | | [place], | [address] | | | | | | [place] [address] | [place], [place] | | | | | | Phone: | [address] | | | | | | [phone] | Phone: | | | | | | Fax: | [phone] | | | | | | [phone] | Fax: | | | | | | | [phone] | +--------+--------+ + + + + Encounter [...] | | | | Mailcode: Center | [place], [place] | Chronic diarrhea | | | | [facility] Health and | [address] | | | | | [facility] | [phone] | | | | | [place], [place] | | | | | | [address] | | | | | | [phone] | | | +--------+---------+ + + + [...] this encounter Patient Instructions Patient Instructions Lashawn oJy PA-C - 07/02/2019 1:05 PM PDTIt was [...] once the orders have been submitted to [facility]. Please do not hesitate to contact my office via phone or Dropcamhart if you have any questions. Thank you! [...] is reported. SOCIAL HISTORY: Pt lives in [place], [place] with his mother. Not working. Smokes 1/4-1/2ppd, working on cutting back. Denies EtOH. Endorses occasional marijuana use, denies illicit drug use otherwise. Past Surgical History Procedure Laterality Date Elbow surgery MEDICATIONS Current Outpatient Medications Medication Sig Blood Sugar Diagnostic ([employer] MI[employer]FILL) In Vitro Strip use to test [...] Lashawn Joy PA-C [facility] [address] [facility] Mailcode: [place] [address] documented in this encounter Plan [...] | | | | | | [place] [address] | | | | | | [phone] | | | | | | | [...] | | | | | | [place] [address] | | | | | | [phone] | | | | | | | | +--------+ + + + + | 09/13/ | Office | Hematology & | Rodney, | | | 2018 | Visit | Oncology | MD Nabeel [address] | | | | | | [place], | | | | | | [place] [address] | | | | | | [phone] | | | | | | | | +--------+ + + + + | 01/24/ | Office | Surgery | Neri Steven MD | | | 2019 | Visit | | [address] | | | | | | [place], | | | | | | [place] [address] | | | | | | [phone] | | | | | | | [...] [address] | [place] | [phone] | | [place] | | | | [...] [address] | [place], [place] | [phone] | | [place] | | | | [...] [address] | [place], [place] | [phone] | | [place] | | | | [...] [address] | [place] | [phone] | | [place] | | | | [...] | + + + + + | [facility] | [address] | [place] [address] | | | SERVICES, CORE | ZENA [...] | + + + + + | [facility] | [address] | [place] [address] | | | [place] | | | | + + + [...] | | | LABORATORY | | | [place] | | | SERVICES, | | | [...] | + + + + + | [facility] | [address] | [place] [address] | | | ZOEY DODD | ZENA [...] [facility] | [address] | [place] [address] | | | SERVICES, CORE | PARK [...]
--- OUTSIDE RECORDS SUMMARY | ~2019-08-28 | XMS | Clinical Summary ---
Demographics + + + | Address | [address] [facility] | | | [place] [address] | + + + | Home Phone | | + + + | Preferred Language | Unknown | + + + | Marital Status | Unknown | + + + | Scientology Affiliation | Unknown | + + + | Race | Unknown | + + + | Ethnic Group | Unknown | + + + Author + + + | Author | [employer] (Historical as of | | | 05-12-19) | + + + | Organization | [facility] (Historical as of | | | 05-12-19) [...] Providers + +------+ + | Care Perianesthesia Nurse Name | Role | Phone | + [...] | CKD (chronic kidney disease), stage III ([facility]) | 01/15/2019 | + + + | [...] +------+-------+ + | MEDICAID | [place] | [id number] | | | [address] | | | [address] | | | | [place], [place] | | | [place] | | | | [address] | | | GASATERIA ATTENDANT | | | | | + +--------+ [...] | [birth year] | Home: | [address] | | | al/Fam | | 1990 | [phone] [address] [place], | | | [place] | | | [address] | [place] [address] | + +--------+ +--------+ + +
--- OUTSIDE RECORDS SUMMARY | ~2019-08-28 | XMS | Encounter Summary ---
Demographics + + + | Address | [address] | | | [place] [address] | + + + | Home Phone | | + + + | Preferred Language | Unknown | + + + | Marital Status | Single | + + + | Sikh Affiliation | CAT | + + + [...] Samantha Ramos | ECON | [address] # | | | | | [place] | | | | | [address] | | + + + + + Care Team Providers + +------+ + | Care Motor Home Electrical Foreman Name | Role | Phone | + [...] [address] | | | | | [place], [place] | [place], [place] | | | | | [address] | [address] | | | | | [phone] | [phone] | | | | | | | [...] 2019 | Encounter | | MD Harris [address] | | | | | | [place], | | | | | | [place] [address] | | | | | | [phone] | | | | | | | [...] | | | | | | [place] [address] | | | | | | [phone] | | | | | | | | +--------+ + + + + | 09/13/ | Office | Hematology & | Rodney | | | 2019 | Visit | Oncology | MD Leo Lees | | | | | | [place] | | | | | | [place] [address] | | | | | | [phone] | | | | | | | | +--------+ + + + + | 01/24/ | Office | Surgery | Neri Steven MD | | | 2019 | Visit | | [address] | | | | | | [place], | | | | | | [place] [address] | | | | | | [phone] | | | | | | | [...] | uIU/maurizio | | | | | [facility] | | | | | | RF nano. | | | | + + + + + + + + | Specimen | + + | | + + + + + + + | Performing | Address | City/State/Zipcode | Phone Number | | Organization | | | | + + + + + | [facility] | [address] | [place] [address] | | | LABORATORY | | | [...] + + + + + | [facility] | [address] | [place] [address] | | | LABORATORY | | | | + + + + + documented in this encounter Visit Diagnoses Not on filedocumented in this encounter"
--- OUTSIDE RECORDS SUMMARY | ~2019-08-28 | XMS | Encounter Summary ---
Demographics + + + | Address | [address] | | | [place] [address] | + + + | Home Phone | | + + + | Preferred Language | Unknown | + + + | Marital Status | Single | + + + | Yarsani Affiliation | CAT | + + + [...] Samantha Ramos | ECON | [address] # | | | | | [place] | | | | | [address] | | + + + + + [...] Only | [facility] [address] | CLUB FORMER [address] | | | | | [address] | [address] | | | | | Mailcode: PV430 | [place] [address] | | | | | [facility] | [phone] | | | | | [place], [place] | | | | | | [address] | | | | | | [phone] | | | +--------+ + + + [...] 2019 | Encounter | | MD Harris [address] | | | | | | [place] | | | | | | [place] [address] | | | | | | [phone] | | | | | | | [...] | | | | | | [place] [address] | | | | | | [phone] | | | | | | | | +--------+ + + + + | 09/13/ | Office | Hematology & | Rodney | | | 2019 | Visit | Oncology | MD Leo Lees | | | | | | [place] | | | | | | [place] [address] | | | | | | [phone] | | | | | | | | +--------+ + + + + | 01/24/ | Office | Surgery | Neri Steven MD | | | 2019 | Visit | | [address] | | | | | | [place], | | | | | | [place] [address] | | | | | | [phone] | | | | | | | [...]
--- OUTSIDE RECORDS SUMMARY | ~2019-08-28 | XMS | Encounter Summary ---
Demographics + + + | Address | [address] | | | [place] [address] | + + + | Home Phone [...] Gia Ramos | ECON | [address] | | | | | [place] | | | | | [address] | | + + + + + Care Team Providers + +------+ + | Care Wash Operator Name | Role | Phone | + +------+ + | Erich Yates | PCP | | + +------+ + Encounter Details +--------+ + + + + | Date | Type | Department | Care Team | Description | +--------+ + + + + | 06/20/ | Orders Only | [facility] | Winston Whitman MD | CKD (chronic kidney | | 2019 | | NEPHROLOGY [place] | [address] [place] | disease), stage III | | | | [address] [place] | [address] [place], [place] | ([facility]) (Primary Dx) | | | | [address] [place], [place] | [address] | | | | | [address] | | | | | | [phone] | | | +--------+ + + + [...]
--- OUTSIDE RECORDS SUMMARY | ~2019-08-28 | XMS | Encounter Summary ---
Demographics + + + | Address | [address] | | | [place] [address] | + + + | Home Phone [...] | [place] | | | | | [address] | | + + + + + Care Team Providers + +------+ + | Care Compensation Analyst Name | Role | Phone | [...] | 03/13/ | Telephone | [facility] [place] | [facility], | Referral | | 2019 | | GASTROENTEROLOGY | DANA Perry [address] | | | | | [address] [place] | [place], [address] | | | | | [address] [place], [place] | [place], [place] | | | | | [address] | [address] | | | | | [phone] | | | +--------+ + + + [...]
--- OUTSIDE RECORDS SUMMARY | ~2019-08-28 | XMS | Encounter Summary ---
Demographics + + + | Address | [address] | | | [place] [address] | + + + | Home Phone [...] | Samantha Ramos | ECON | [address] # | | | | | [place] | | | | | [address] | | + + + + + Care Team Providers + +------+ + | Care Trimmer Hand Name | Role | Phone | [...] 2005 | Only | [address] | [phone] | | | | | Rd Mailcode: RPB07 | | | | | | [place], [place] | | | | | | [address] | | | | | | [phone] | | | +--------+ + + + [...] 2019 | Encounter | | MD Harris [address] | | | | | | [place], | | | | | | [place] [address] | | | | | | [phone] | | | | | | | [...] | | | | | | [place] [address] | | | | | | [phone] | | | | | | | | +--------+ + + + + | 09/13/ | Office | Hematology & | Rodney, | | | 2019 | Visit | Oncology | MD Leo Lees | | | | | | [place] | | | | | | [place] [address] | | | | | | [phone] | | | | | | | | +--------+ + + + + | 01/24/ | Office | Surgery | Neri Steven MD | | | 2019 | Visit | | [address] | | | | | | [place], | | | | | | [place] [address] | | | | | | [phone] | | | | | | | [...]
--- OUTSIDE RECORDS SUMMARY | ~2019-08-28 | XMS | Encounter Summary ---
Demographics + + + | Address | [address] | | | [place] [address] | + + + | Home Phone [...] Samantha Ramos | ECON | [address] # | | | | | [place] | | | | | [address] | | + + + + + Care Team Providers + +------+ + | Care Radiator Mechanic Name | Role | Phone | [...] Only | [facility] [address] | BANK GUARD [address] | | | | | [address] | [address] | | | | | Mailcode: PV430 | [place] [address] | | | | | [facility] | [phone] | | | | | [place], [place] | | | | | | [address] | | | | | | [phone] | | | +--------+ + + + [...] 2019 | Encounter | | MD Harris [address] | | | | | | [place] | | | | | | [place] [address] | | | | | | [phone] | | | | | | | [...] | | | | | | [place] [address] | | | | | | [phone] | | | | | | | | +--------+ + + + + | 09/13/ | Office | Hematology & | Rodney | | | 2019 | Visit | Oncology | MD Leo Lees | | | | | | [place] | | | | | | [place] [address] | | | | | | [phone] | | | | | | | | +--------+ + + + + | 01/24/ | Office | Surgery | Neri Steven MD | | | 2019 | Visit | | [address] | | | | | | [place], | | | | | | [place] [address] | | | | | | [phone] | | | | | | | [...]
--- OUTSIDE RECORDS SUMMARY | ~2019-08-28 | XMS | Encounter Summary ---
Demographics + + + | Address | [address] | | | [place] [address] | + + + | Home Phone | | + + + | Preferred Language | Unknown | + + + | Marital Status | Single | + + + | Zoroastrianism Affiliation | CAT | + + + [...] Samantha Ramos | ECON | [address] # | | | | | [place] | | | | | [address] | | + + + + + Care Team Providers + +------+ + | Care Control Systems Technician Name | Role | Phone [...] Center at [facility] [address] | [address] | Review | | | | [address] | [place], [place] | | | | | Mailcode: Center | [address] | | | | | for Health and | [phone] | | | | | [facility] [address] | | | | | | [place], [place] | | | | | | [address] | | | | | | [phone] | | | +--------+ + + + [...] 2019 | Encounter | | MD Harris [address] | | | | | | [place] | | | | | | [place] [address] | | | | | | [phone] | | | | | | | [...] | | | | | | [place] [address] | | | | | | [phone] | | | | | | | | +--------+ + + + + | 09/13/ | Office | Hematology & | Rodney | | | 2018 | Visit | Oncology | MD Nabeel [address] | | | | | | [place] | | | | | | [place] [address] | | | | | | [phone] | | | | | | | | +--------+ + + + + | 01/24/ | Office | Surgery | Neri Steven MD | | | 2020 | Visit | | [address] | | | | | | [place], | | | | | | [place] [address] | | | | | | [phone] | | | | | | | | +--------+ + + + + documented as of this encounter Visit Diagnoses Not on filedocumented in this encounter"
--- OUTSIDE RECORDS SUMMARY | ~2019-08-28 | XMS | Encounter Summary ---
Demographics + + + | Address | [address] | | | [place] [address] | + + + | Home Phone [...] Samantha Ramos | ECON | [address] # | | | | | [place], [place] | | | | | [address] | | + + + + + Care Team Providers + +------+ + | Care Salt Refiner Name | Role | Phone | + [...] as of this encounter Progress Notes Interface, Sand Drier In - 04/25/2005 12:43 AM PDT [id number] 09/30/2004 09/30/2003 [id number] NAHOMY Durbin [facility] [address] [place], [place] [id number] or September 30, 2004 Neri Mojica M.D. [address] [place] [address] RE: BROOKS MARQUEZ II MR #: [id number] Dear Dr. Mojica: Diagnoses: 1. Type 1 diabetes. 2. Currently poor control. 3. Poor compliance. I reviewed Brooks Ogden in our Pediatric Endocrinology Clinic for the first time today. Alin is a 13-year 73-rjuzf-frh boy who was diagnosed with type 1 diabetes in April 2002, presenting with weight loss, polyuria, and polydipsia. Since Brooks was diagnosed, he has been mainly under your care for his diabetes, although he has been seen once at [facility]. His control has generally been very poor, [...] his new step-father and brother in the [facility]. Though there is strong family history [...] Normal sensation. Summary: Alin is a 13-year 70-znkeg-ghe boy with very poor diabetes control, secondary [...] or concerns. Yours sincerely, Ashanti Roque M.D. [employer] of Pediatric Endocrinology / [id number] / [id number] / [id number] / documented i n this encounter Plan of Treatment +--------+ + + + + | Date | Type | Specialty | Care Team | Description | +--------+ + + + + | 09/03/ | Hospital | | Greg Mathis | | | 2019 | Encounter | | MD Harris [address] | | | | | | [place], | | | | | | [place] [address] | | | | | | [phone] | | | | | | | [...] | | | | | | [place] [address] | | | | | | [phone] | | | | | | | | +--------+ + + + + | 09/13/ | Office | Hematology & | Rodney, | | | 2019 | Visit | Oncology | MD Leo Lees | | | | | | [place] | | | | | | [place] [address] | | | | | | [phone] | | | | | | | | +--------+ + + + + | 01/24/ | Office | Surgery | Neri Steven MD | | | 2020 | Visit | | [address] | | | | | | [place], | | | | | | [place] [address] | | | | | | [phone] | | | | | | | | +--------+ + + + + documented as of this encounter Visit Diagnoses Not on filedocumented in this encounter"
--- OUTSIDE RECORDS SUMMARY | ~2019-08-28 | XMS | Encounter Summary ---
Demographics + + + | Address | [address] | | | [place] [address] | + + + | Home Phone | | + + + | Preferred Language | Unknown | + + + | Marital Status | Single | + + + | Christianity Affiliation | Unknown | + + + | Race | Unknown | + + + | Ethnic Group | Unknown | + + + Author + + + | Author | [facility] | | | and [place] | + + + | Organization | [facility] | | | and [place] | + + + | Address | Unknown | + + + | Phone | Unavailable | + + + Support + + + + + | Name | Relationship | Address | Phone | + + + + + | Gia Ramos | ECON | [address] | | | | | [place] | | | | | [address] | | + + + + + Care Team Providers + +------+ + | Care Production Control Scheduler Name | Role | Phone | + [...] + + | 09/29/ | Office | [facility] | Tc Mora | Nephrolithiasis | | 2019 | Visit | [address] | MD Boyd [address] | (Primary Dx); | | | | [place], [place] | [place], [place] | Hyperkalemia; Stage | | | | [address] | [address] | 3 chronic kidney | | | | [phone] | | disease (HCC) | +--------+---------+ + [...] STENT PLACEMENT; Surgeon: Tc Mora MD; Location: [facility] [place] Family History: Family [...] pH, Urine 6.0 5.0 - 8.0 Specific [place] 1.012 1.001 - 1.030 Protein, Urine 100 [...] ECGs available Confirmed by CRISTINE HUDDLESTON MD ([id number]) on 09/21/2018 6:31:13 AM Lab Results Component [...] have not thoroughly proofread this note, and wood technologist errors are very likely to occur. CC: [...]
--- OUTSIDE RECORDS SUMMARY | ~2019-08-28 | XMS | Encounter Summary ---
Demographics + + + | Address | [address] | | | [place] [address] | + + + | Home Phone [...] Samantha Ramos | ECON | [address] # | | | | | [place] | | | | | [address] | | + + + + + Care Team Providers + +------+ + | Care Billboard Poster Helper Name | Role | Phone | [...] Operative Report | | 2006 | | [place] [facility] [address] | | | | | Transcribed | [address] | | | | | | Mailcode: Center | | | | | | for Health and | | | | | | Healing, Building 2 | | | | | | [facility] [place] | | | | | | [address] | | | | | | [phone] | | | +--------+ + + + [...] 2019 | Encounter | | MD Harris [address] | | | | | | [place] | | | | | | [place] [address] | | | | | | [phone] | | | | | | | [...] | | | | | | [place] [address] | | | | | | [phone] | | | | | | | | +--------+ + + + + | 09/13/ | Office | Hematology & | Rodney | | | 2018 | Visit | Oncology | MD Leo Lees | | | | | | [place], | | | | | | [place] [address] | | | | | | [phone] | | | | | | | | +--------+ + + + + | 01/24/ | Office | Surgery | Neri Steven MD | | | 2019 | Visit | | [address] | | | | | | [place], | | | | | | [place] [address] | | | | | | [phone] | | | | | | | [...] | 10/13/2006 12:00 AM PST | | [id number] | | [id number] NAHOMY GROSSMAN Ramakrishna [id number] | | | | Date: 10/13/2006 | | | | Attending Surgeon: Neri Mcgarry M.D., Ph.D. | | | | Sap Hana Architect(s): Stefano Clements M.D. | | | | [...] Mcgarry M.D., Ph.D. | | | | [facility] / | | [id number] / [id number] / [id number] / [id number] | | | | | | | | | | | | Electronically signed by Neri Mcgarry 10-24-2006 04:46:26 PM | | | | | + + documented in this encounter Visit Diagnoses Not on filedocumented in this encounter"
--- OUTSIDE RECORDS SUMMARY | ~2019-08-28 | XMS | Encounter Summary ---
Demographics + + + | Address | [address] | | | [place] [address] | + + + | Home Phone [...] | Gia Ramos | ECON | [address] | | | | | [place] | | | | | [address] | | + + + + + Care Team Providers + +------+ + | Care Health Lead Name | Role | Phone | + +------+ + | Erich Yates | PCP | | + +------+ + Encounter Details +--------+ + + + + | Date | Type | Department | Care Team | Description | +--------+ + + + + | 02/28/ | Documentati | [facility] [place] | [facility], | | | 2019 | on | GASTROENTEROLOGY | DANA Perry [address] | | | | | [address] | [place], [address] | | | | | [address] [place], [place] | [place], [place] | | | | | [address] | [address] | | | | | [phone] | | | +--------+ + + + [...] 02/28/2019 8:47 AM PDTReceived [facility] [...]
--- OUTSIDE RECORDS SUMMARY | ~2019-08-28 | XMS | Encounter Summary ---
Demographics + + + | Address | [address] | | | [place] [address] | + + + | Home Phone [...] Samantha Ramos | ECON | [address] | | | | | [place], [place] | | | | | [address] | | + + + + + Care Team Providers + +------+ + | Care Tower Dragline Operator Name | Role | Phone | [...] as of this encounter Progress Notes Interface, Brokerage Purchase And Sale Clerk In - 04/25/2005 12:[address] [facility] [id number] NAHOMY Durbin Clinic Date: 09/30/2004 Clinic: [facility] Subjective: Alin is an almost 14-year-old young boy with type 1 diabetes. The family is new to clinic, here to establish care for his ongoing diabetes management. Alin is usually followed by his primary care doctor, Dr. Mojica in [place]. The family does have several questions and are quite interactive in today's visit. Previous Diabetes Education: Alin was diagnosed with type 1 diabetes on April 2002, at that time, he was admitted to the hospital in [place], [place] where the family did receive initial [...] the football practice. Meal Planning: The pediatric care coordinator Shannon Early did meet with the family [...] also involved in football. 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 I discussed the importance of being [...] family's first visit here to the [facility]. The family is [...] Team. Estefany Hathaway R.N. ANA / CONTRERAS [id number] / [id number] / [id number] / [id number] CDRCP Electronically signed by Estefany Hathaway 10-05-2004 [...] | | | | | | [place] [address] | | | | | | [phone] | | | | | | | [...] | | | | | | [place] [address] | | | | | | [phone] | | | | | | | | +--------+ + + + + | 09/13/ | Office | Hematology & | Rodney, | | | 2018 | Visit | Oncology | MD Nabeel [address] | | | | | | [place], | | | | | | [place] [address] | | | | | | [phone] | | | | | | | | +--------+ + + + + | 01/24/ | Office | Surgery | Neri Steven MD | | | 2019 | Visit | | [address] | | | | | | [place], | | | | | | [place] [address] | | | | | | [phone] | | | | | | | | +--------+ + + + + documented as of this encounter Visit Diagnoses Not on filedocumented in this encounter
--- OUTSIDE RECORDS SUMMARY | ~2019-08-28 | XMS | Encounter Summary ---
Demographics + + + | Address | [address] | | | [place] [address] | + + + | Home Phone [...] Samantha Ramos | ECON | [address] # | | | | | [place] | | | | | [address] | | + + + + + Care Team Providers + +------+ + | Care Power Press Operator Name | Role | Phone [...] Only | [facility] [address] | ASSEMBLY ADJUSTER [address] | | | | | [address] | [address] | | | | | Mailcode: PV430 | [place] [address] | | | | | [facility] | [phone] | | | | | [place], [place] | | | | | | [address] | | | | | | [phone] | | | +--------+ + + + [...] 2019 | Encounter | | MD Harris [address] | | | | | | [place] | | | | | | [place] [address] | | | | | | [phone] | | | | | | | [...] | | | | | | [place] [address] | | | | | | [phone] | | | | | | | | +--------+ + + + + | 09/13/ | Office | Hematology & | Rodney | | | 2019 | Visit | Oncology | MD Leo Lees | | | | | | [place] | | | | | | [place] [address] | | | | | | [phone] | | | | | | | | +--------+ + + + + | 01/24/ | Office | Surgery | Neri Steven MD | | | 2019 | Visit | | [address] | | | | | | [place], | | | | | | [place] [address] | | | | | | [phone] | | | | | | | [...]
--- OUTSIDE RECORDS SUMMARY | ~2019-08-28 | XMS | Encounter Summary ---
Demographics + + + | Address | [address] | | | [place] [address] | + + + | Home Phone [...] Samantha Ramos | ECON | [address] # | | | | | [place] | | | | | [address] | | + + + + + Care Team Providers + +------+ + | Care Building Energy Retrofit Technician Name | Role | Phone | [...] | | | | | gastroparesi | [address] [facility] | | | | | | s associated | [address] | | | | | | with type [address] | Rd | | | | | | diabetes | [place], [place] | | | | | | mellitus | [address] | | | | | | (HCC) | Phone: | | | | | | Procedures | [phone] | | | | | | NM GASTRIC | Fax: | | | | | | EMPTYING | [phone] | | | | | | STUDY [...] | | | | | diabetes | [place], [place] | [facility] | | | | | mellitus | [address] | [place] | | | | | ([facility]) | Phone: | [address] | | | | | Procedures | [phone] | [place], | | | | | CONSULT TO | Fax: | [place] [address] | | | | | GI PROCEDURE | [phone] | Phone: | | | | | UNIT: EGD | | [phone] | | | | | | | Fax: | | | | | | | [phone] | + +--------+ + + + + Encounter Details +--------+ + + + + | Date | Type | Department | Care Team | Description | +--------+ + + + + | 07/04/ | Quality System Manager | Digestive Health | Neri Steven MD | Diabetic | | 2019 | | Center at [facility] [address] | [address] | gastroparesis | | | | [address] | [place], | associated with type | | | | Mailcode: Center | [place] [address] | 1 diabetes mellitus | | | | for Health and | [phone] | ([facility]) (Primary Dx) | | | | Healing, Building [address] | | | | | | [place], [place] | | | | | | [address] | | | | | | [phone] | | | +--------+ + + + [...] 2018 | Encounter | | MD Harris [address] | | | | | | [place], | | | | | | [place] [address] | | | | | | [phone] | | | | | | | [...] | | | | | | [place] [address] | | | | | | [phone] | | | | | | | | +--------+ + + + + | 09/13/ | Office | Hematology & | Rodney, | | | 2018 | Visit | Oncology | MD Nabeel [address] | | | | | | [place], | | | | | | [place] [address] | | | | | | [phone] | | | | | | | | +--------+ + + + + | 01/24/ | Office | Surgery | Neri Steven MD | | | 2019 | Visit | | [address] | | | | | | [place], | | | | | | [place] [address] | | | | | | [phone] | | | | | | | [...]
--- OUTSIDE RECORDS SUMMARY | ~2019-08-28 | XMS | Encounter Summary ---
Demographics + + + | Address | [address] | | | [place] [address] | + + + | Home Phone [...] Samantha Ramos | ECON | [address] # | | | | | [place] | | | | | [address] | | + + + + + Care Team Providers + +------+ + | Care Swing Manager Name | Role | Phone | + +------+ + | Erich Yates PA-C | PCP | | + +------+ + Encounter Details +--------+ + + + + | Date | Type | Department | Care Team | Description | +--------+ + + + + | 07/06/ | Transcribe | [facility] | Transcribe | | | 2019 | Orders | [facility] [address] | Encounter, Provider, | | | | | [place] Mailcode: | [address] | | | | | [facility] for | [place] [address] | | | | | Health and Healing, | | | | | | Building [address] | | | | | | [place], [place] | | | | | | [address] | | | | | | [phone] | | | +--------+ + + + [...] 2018 | Encounter | | MD Harris [address] | | | | | | [place], | | | | | | [place] [address] | | | | | | [phone] | | | | | | | [...] | | | | | | [place] [address] | | | | | | [phone] | | | | | | | | +--------+ + + + + | 09/13/ | Office | Hematology & | [place], | | | 2018 | Visit | Oncology | MD Nabeel [address] | | | | | | [place], | | | | | | [place] [address] | | | | | | [phone] | | | | | | | | +--------+ + + + + | 01/24/ | Office | Surgery | Neri Steven MD | | | 2019 | Visit | | [address] | | | | | | [place], | | | | | | [place] [address] | | | | | | [phone] | | | | | | | [...]
--- OUTSIDE RECORDS SUMMARY | ~2019-08-28 | XMS | Encounter Summary ---
Demographics + + + | Address | [address] | | | [place] [address] | + + + | Home Phone [...] Samantha Ramos | ECON | [address] | | | | | [place], [place] | | | | | [address] | | + + + + + Care Team Providers + +------+ + | Care Sales Operations Assistant Name | Role | Phone | [...] [address] | | | | | | [place], [place] | | | | | | [address] | | | | | | [phone] | | | | | | | [...] 2018 | Encounter | | MD Harris [address] | | | | | | [place], | | | | | | [place] [address] | | | | | | [phone] | | | | | | | | +--------+ + + + + | 09/03/ | Appointment | Procedural Care Unit | | | | 2018 | | | | | +--------+ + + + + | 09/03/ | Appointment | Gastroenterology | Greg Mathis | | | 2018 | | | MD Harris [address] | | | | | | [place], | | | | | | [place] [address] | | | | | | [phone] | | | | | | | | +--------+ + + + + | 09/13/ | Office | Hematology & | Rodney, | | | 2018 | Visit | Oncology | MD Nabeel [address] | | | | | | [place], | | | | | | [place] [address] | | | | | | [phone] | | | | | | | | +--------+ + + + + | 01/24/ | Office | Surgery | Neri Steven MD | | | 2019 | Visit | | [address] | | | | | | [place], | | | | | | [place] [address] | | | | | | [phone] | | | | | | | [...] | + + + + + | [facility] DEPARTMENT OF | [address] [place] [address] [address] | [place] [address] | | | PATHOLOGY | [address] | | | + + + + + | [facility] DEPARTMENT OF | [address] [address] | [place] [address] | | | PATHOLOGY | [address] [...] | + + + + + | [facility] DEPARTMENT OF | [address] [facility] | [place] [address] | | | PATHOLOGY | [address] | | | + + + + + | [facility] DEPARTMENT OF | [address] [facility] | [place] [address] | | | PATHOLOGY | [address] [...] + + + + + | [facility] | [address] [facility] | [place] [address] | | | PATHOLOGY | [address] | | | + + + + + | [facility] DEPARTMENT | [address] [facility] | [place] [address] | | | PATHOLOGY | [address] [...] | + + + + + | [facility] DEPARTMENT OF | [address] | [place] [address] | | | PATHOLOGY | [address] | | | + + + + + | [facility] DEPARTMENT OF | [address] | [place] [address] | | | PATHOLOGY | [address] | | | + + + + + GLUCOSE, WHOLE BLOOD (12/03/2002 6:00 AM PST) + +---------+ + + + | Component | Value | Ref Range | Performed | Pathologist | | | | | At | Signature | + +---------+ + + + | GLUCOSE,WHO | 216 (H) | 65 - 110 mg/dL | [facility] | | | LE BLOOD | [...] + + + + + | [facility] | [address] [facility] | [place] [address] | | | PATHOLOGY | [address] | | | + + + + + | [facility] | [facility] [facility] | [place] [address] | | | PATHOLOGY | [address] [...] Performed At | + + + | [id number] CALCIUM Checked and phoned. | [facility] | | | DEPARTMENT OF | | | PATHOLOGY | + + + + + + + + | Performing | Address | City/State/Zipcode | Phone Number | | Organization | | | | + + + + + | [facility] DEPARTMENT OF | [address] [facility] | [place] [address] | | | PATHOLOGY | [address] | | | + + + + + | [facility] DEPARTMENT OF | [facility] | [place] [address] | | | PATHOLOGY | [address] | | | + + + + + CHEMISTRY MASTER PANEL (12/03/2002 6:00 AM PST) + + | Specimen | + + | | + + + + + | Narrative | Performed At | + + + | [id number] CALCIUM Checked and phoned. | [facility] | | | DEPARTMENT OF | | | PATHOLOGY | + + + + + + + + | Performing | Address | City/State/Zipcode | Phone Number | | Organization | | | | + + + + + | [facility] DEPARTMENT | [address] [facility] | [place] [address] | | | PATHOLOGY | [address] | | | + + + + + | [facility] | [facility] [facility] | [place] [address] | | | PATHOLOGY | [address] [...] | + + + + + | [facility] DEPARTMENT OF | [address] [facility] | [place] [address] | | | PATHOLOGY | [address] | | | + + + + + | [facility] DEPARTMENT OF | [address] [facility] | [place] [address] | | | PATHOLOGY | [address] [...] + + + + + | [facility] | [address] [facility] | [place] [address] | | | PATHOLOGY | [address] | | | + + + + + | [facility] | [address] [facility] | [place] [address] | | | PATHOLOGY | [address] [...] | + + + + + | [facility] DEPARTMENT OF | [address] [facility] | [place] [address] | | | PATHOLOGY | [address] | | | + + + + + | [facility] DEPARTMENT OF | [address] [facility] | [place] [address] | | | PATHOLOGY | [address] [...] + + | [facility] DEPARTMENT OF | [address] | [place] [address] | | | PATHOLOGY | [address] | | | + + + + + | [facility] | [address] | [place] [address] | | | PATHOLOGY | [address] [...] | | | | | | [facility] | | | | | | Laboratories. | | | | + + + + + + + + | Specimen | + + | | + + + + + + + | Performing | Address | City/State/Zipcode | Phone Number | | Organization | | | | + + + + + | [facility] | [address] | [place] [address] | | | LABORATORY | | | [...] | + + + + + | [facility] DEPARTMENT OF | [address] [facility] | [place] [address] | | | PATHOLOGY | [address] | | | + + + + + | [facility] DEPARTMENT OF | [address] [facility] | [place] [address] | | | PATHOLOGY | [address] [...] Performed At | + + + | [id number] Checked and phoned. CO2 [id number] Checked and phoned. | [facility] | | | DEPARTMENT OF | | | PATHOLOGY | + + + + + + + + | Performing | Address | City/State/Zipcode | Phone Number | | Organization | | | | + + + + + | [facility] | [address] | [place] [address] | | | PATHOLOGY | [address] | | | + + + + + | [facility] | [facility] [address] | [place] [address] | | | PATHOLOGY | [address] [...] Performed At | + + + | [id number] Checked and phoned. CO2 [id number] Checked and phoned. | [facility] | | | DEPARTMENT OF | | | PATHOLOGY | + + + + + + + + | Performing | Address | City/State/Zipcode | Phone Number | | Organization | | | | + + + + + | [facility] DEPARTMENT OF | [facility] | [place] [address] | | | PATHOLOGY | [address] | | | + + + + + | [facility] DEPARTMENT OF | [facility] | [place] [address] | | | PATHOLOGY | [address] [...] Performed At | + + + | [id number] Checked and phoned. CO2 [id number] Checked and phoned. | [facility] | | | DEPARTMENT OF | | | PATHOLOGY | + + + + + + + + | Performing | Address | City/State/Zipcode | Phone Number | | Organization | | | | + + + + + | [facility] DEPARTMENT OF | [address] [facility] | [place] [address] | | | PATHOLOGY | [address] | | | + + + + + | [facility] DEPARTMENT OF | [address] [facility] | [place] [address] | | | PATHOLOGY | [address] | | | + + + + + CHEMISTRY MASTER PANEL (12/02/2002 6:45 PM PST) + + | Specimen | + + | | + + + + + | Narrative | Performed At | + + + | [id number] Checked and phoned. CO2 [id number] Checked and phoned. | [facility] | | | DEPARTMENT OF | | | PATHOLOGY | + + + + + + + + | Performing | Address | City/State/Zipcode | Phone Number | | Organization | | | | + + + + + | [facility] | [address] | [place] [address] | | | PATHOLOGY | [address] | | | + + + + + | [facility] | [address] | [place] [address] | | | PATHOLOGY | [address] | | | + + + + + documented in this encounter Visit Diagnoses Not on filedocumented in this encounter"
--- OUTSIDE RECORDS SUMMARY | ~2019-08-28 | XMS | Encounter Summary ---
Demographics + + + | Address | [address] | | | [place] [address] | + + + | Home Phone [...] | Gia Ramos | ECON | [address] | | | | | [place] | | | | | [address] | | + + + + + Care Team Providers + +------+ + | Care Sulphate Tester Name | Role | Phone | + +------+ + | Erich Yates | PCP | | + +------+ + Encounter Details +--------+ + + + + | Date | Type | Department | Care Team | Description | +--------+ + + + + | 04/18/ | Orders Only | [facility] | Provider, | Chronic kidney | | 2019 | | SYSTEM GENERIC OP | MD [address] | disease, stage III | | | | CONVERSION [address] | [address] | (moderate) ([facility]LY [facility]); | | | | [address] [place], [place] | [place] [address] | Proteinuria; Type 1 | | | | [address] | | diabetes mellitus | | | | [phone] | | with diabetic | | | | | | nephropathy ([facility]); | | | | | | Chronic kidney | | | | | | disease, stage III | | | | | | (moderate) ([facility]) | +--------+ + + + + Social [...] | (moderate) ([facility]) | 01/15/2021 | | | | | Proteinuria Type 1 | | | | | | diabetes mellitus | | | | | | with diabetic | | | | | | nephropathy ([facility]) | | | | | | Chronic kidney | | | | | | disease, stage III | | | | | | (moderate) ([facility]) | | + +------+--------+ + + | Protein/Creatinine | Lab | Routin | Chronic kidney | Expected: | | Ratio, Urine | | e | disease, stage III | 03/07/2019, Expires: | | | | | (moderate) ([facility]) | 01/15/2021 | | | | | Proteinuria Type 1 | | | | | | diabetes mellitus | | | | | | with diabetic | | | | | | nephropathy ([facility]) | | | | | | Chronic kidney | | | | | | disease, stage III | | | | | | (moderate) ([facility]) | | + +------+--------+ + + documented as of this encounter Visit Diagnoses + + | Diagnosis | + + | Chronic kidney disease, stage III (moderate) (HCC) Chronic kidney disease, Stage III | | (moderate) | + + | Proteinuria | + + | 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
--- OUTSIDE RECORDS SUMMARY | ~2019-08-28 | XMS | Encounter Summary ---
Demographics + + + | Address | [address] | | | [place] [address] | + + + | Home Phone [...] Samantha Ramos | ECON | [address] # | | | | | [place] | | | | | [address] | | + + + + + Care Team Providers + +------+ + | Care Aviation Safety Inspector Name | Role | Phone | [...] Only | [facility] [address] | COMBAT SYSTEMS ENGINEER [address] | | | | | [address] | [address] | | | | | Mailcode: [id number] | [place] [address] | | | | | [facility] | [phone] | | | | | [place], [place] | | | | | | [address] | | | | | | [phone] | | | +--------+ + + + [...] 2019 | Encounter | | MD Harris [address] | | | | | | [place] | | | | | | [place] [address] | | | | | | [phone] | | | | | | | [...] | | | | | | [place] [address] | | | | | | [phone] | | | | | | | | +--------+ + + + + | 09/13/ | Office | Hematology & | Rodney | | | 2019 | Visit | Oncology | MD Leo Lees | | | | | | [place] | | | | | | [place] [address] | | | | | | [phone] | | | | | | | | +--------+ + + + + | 01/24/ | Office | Surgery | Neri Steven MD | | | 2019 | Visit | | [address] | | | | | | [place], | | | | | | [place] [address] | | | | | | [phone] | | | | | | | [...]
--- OUTSIDE RECORDS SUMMARY | ~2019-08-28 | XMS | Encounter Summary ---
Demographics + + + | Address | [address] | | | [place] [address] | + + + | Home Phone [...] Samantha Ramos | ECON | [address] # | | | | | [place] | | | | | [address] | | + + + + + Care Team Providers + +------+ + | Care Bender Helper Name | Role | Phone | [...] Only | [facility] [address] | DIRECTOR FIELD SERVICES [address] | | | | | [address] | [address] | | | | | Mailcode: [id number] | [place] [address] | | | | | [facility] | [phone] | | | | | [place], [place] | | | | | | [address] | | | | | | [phone] | | | +--------+ + + + [...] 2019 | Encounter | | MD Harris [address] | | | | | | [place] | | | | | | [place] [address] | | | | | | [phone] | | | | | | | [...] | | | | | | [place] [address] | | | | | | [phone] | | | | | | | | +--------+ + + + + | 09/13/ | Office | Hematology & | Rodney | | | 2019 | Visit | Oncology | MD Leo Lees | | | | | | [place] | | | | | | [place] [address] | | | | | | [phone] | | | | | | | | +--------+ + + + + | 01/24/ | Office | Surgery | Neri Steven MD | | | 2019 | Visit | | [address] | | | | | | [place], | | | | | | [place] [address] | | | | | | [phone] | | | | | | | [...]
--- OUTSIDE RECORDS SUMMARY | ~2019-08-28 | XMS | Encounter Summary ---
Demographics + + + | Address | [address] | | | [place] [address] | + + + | Home Phone [...] Samantha Ramos | ECON | [address] # | | | | | [place] | | | | | [address] | | + + + + + Care Team Providers + +------+ + | Care Bill Of Materials Clerk Name | Role | Phone | [...] | | without | Gurpreet Zena | [facility] | | | | | coma | Rd | Rd | | | | | associated | [place], [place] | Physician's | | | | | with type 1 | [address] | Bg Fabrice | | | | | diabetes | Phone: | 140 | | | | | mellitus | [phone] | [place], [place] | | | | | ([facility]) Type | Fax: | [phone] | | | | | 1 diabetes | [phone] | Phone: | | | | | mellitus | | [phone] | | | | | with | | Fax: | | | | | hyperglycemi | | [phone] | | | | | a ([facility]) | | | | | | | [...] | | | | | mellitus | [facility] | [address] | | | | | with | Rd | Mailcode: | | | | | hyperglycemi | [place], [place] | [address] | | | | | a ([facility]) | [address] | Physician's | | | | | Procedures | Phone: | Bg Olmos | | | | | CONSULT TO | [phone] | 140 | | | | | ADULT | Fax: | [place], [place] | | | | | DIABETES - | [phone] | [address] | | | | | EDUCATION | | Phone: | | | | | (DIABETES | | [phone] | | | | | SELF-MANAGEM | | Fax: | | | | | ENT) | | [phone] | +--------+--------+ + + + + Reason [...] + + | 08/25/ | Hospital | [facility] [address] | [address] | | | 2015 - | Encounter | Nathalia Bernardo MD [address] | | | | | 14C [facility] | [address] | | | 08/27/ | | [place], [place] | [place], [place] | | | 2014 | | [address] | [address] | | | | | [phone] | [phone] | | | | | | | | | | | | Harris Martínez MD | | | | | | Chrissie | | | | | | [facility] | | | | | | Center [address] | | | | | | [address] [place], | | | | | | [place] [address] | | | | | | [phone] | | | | | | | | | | | | Jeff Diggs, | | | | | | ,MPH [address] | | | | | | [facility] [address] | | | | | | [facility], [place] | | | | | | [address] | | | | | | [phone] | | | | | | | | | | | | Eunice Parada MD | | | | | | [address] | | | | | | [facility] Rd | | | | | | [place], [place] | | | | | | [address] | | | | | | [phone] | | | | | | | | | | | | Vern Garnica, | | | | | | [address] | | | | | | [facility] Rd | | | | | | [facility], [place] | | | | | | [address] | | | | | | [phone] | | | | | | | [...] Procedures 1. Gastric emptying study Consulting Services: Mail Carrier And Clerk Reason For Admission: Diabetic ketoacidosis. Hyperglycemia, [...] endocrinolog y and diabetes education here at [facility] which were completed. He was counseled on how to rotat e sites for his insulin injections. - Continue glargine 15 units daily + lispro 1 unit per 15 g carb - Outpatient referral to endocrinology and public health educator - Will need outpatient follow [...] post-hospitalization follow-up; Appt at 740am Contact information [facility] [address] [facility] [address] [place] [id number] Follow up with [facility] 1st Floor. Specialty: Endocrinology, Diabetes & Metabolism Why: To establish care; follow up on referral to endocrinology if you do not hear back fr om them in 1 week Contact information [address] [address] Additional information: [facility], 1st floor [address] [place] [address] The [facility] is the building just past [facility]. Turn right immediately past the [facility]. The entrance to [facility] will be on your right just beyond the main doors to the [facility]. An elevator in e parking garage will take patients directly to the floor of the clinic. The [facility] is located on the 1st floor. Please check in at the front counter attendant. M aps and directions can be found at: [email or web address] fm Other Discharge Orders and Instructions It was a pleasure taking care of you while you were here at [facility] 1) Take all your medications as prescribed especially your insulin and blood pressure medic ations 2) Follow up with your PCP Dr. Pascual on 09/02 at 740am. 3) Make sure to rotate location of where you inject your insulins and keep close track of y our blood sugars 4) We will make referral to [facility] endocrinology but please follow up [...] nearest ER for evaluation. Referrals placed to [facility] endocrinology and public health educator This note was routed to patient's PCP in [place]. EUNICE PRAADA MD Pager - [phone] Molder Settereducational coordinator Clinical and Medicine [facility] I spent 45 minutes coordinating care for this patient's discharge, of which 30 minutes were spent gilf-an-cnzn with the patient as well as with [...] is stating desire to establish with an Sexual Assault Counsellor. Has not hooper d an retail selling floor leader since "Dr Roque" during pediatric years at [facility]. Pt uses insulin syringe and [...] home. States willingness to come back to [facility] for endocrinology care, lives in [facility]. Hypoglycemia: reports 1-2 occurrences per week, [...] steven. Pt expresses interest in establishing with retail selling floor leader here at [facility], and is willing to review/discuss further insulin pumps with endocrinology team. Informed pt that insulin pump does not take away the work (still need to check BG levels an d count carbs and give bolus doses) Recommendations 1. Encourage pt to attend support group 2. Encourage improving DM self management and care 3. Refer to [facility] diabetes center for endocrinology care 4. Refer to public health educator in diabetes center for updating [...] LD, RN, CDE Inpatient Diabetes Education Pager: [phone] Eunice Rich MD - 08/26/2015 9:03 AM PST Internal Medicine Clinical Hospitalist Service Progress Note ID/CC: Brooks Marquez (Keith) is a 24 year old man with poorly controlled type 1 diabetes trent litus (HgbA1c in 06/2015 of 12.5%) here with diabetic ketoacidosis in setting of impaired in sulin absorption due to subcutaneous scar tissue with concurrent lactic acidosis (now [facility] ed), no clear infectious etiology for [...] full code EUNICE PARADA MD Pager - [phone] Molder Settereducational coordinator Clinical and Medicine [facility] I spent 40 minutes myco-pb-dfrp with the patient as well as with [...] 2019 | Encounter | | MD Harris [address] | | | | | | [address] [place], | | | | | | [place] [address] | | | | | | [phone] | | | | | | | [...] | | | | | | [place] [address] | | | | | | [phone] | | | | | | | | +--------+ + + + + | 09/13/ | Office | Hematology & | Rodney, | | | 2018 | Visit | Oncology | MD Shwetha [address] | | | | | | [place], | | | | | | [place] [address] | | | | | | [phone] | | | | | | | | +--------+ + + + + | 01/24/ | Office | Surgery | Neri Steven MD | | | 2019 | Visit | | [address] | | | | | | [place], | | | | | | [place] [address] | | | | | | [phone] | | | | | | | [...] + + documented in this encounter Results [place] GASTRIC EMPTYING STUDY (08/27/2015 2:13 PM PST) [...] | | + +---------+ + + | [facility] DEPARTMENT OF | | | [...] VERDE | [address] | [place], [place] | | | TANJA HAY OF ANNA | [address] | [address] | | | TESTS | | | [...] AMMON | [address] | [place], [place] | | | TANJA HAY OF ANNA | [facility] | [address] | | | TESTS | | | [...] (H) | 60 - 99 mg/dL | [facility] - | | | GLUCOSE, [...] VERDE | [address] | [place], [place] | | | [place] POINT OF CARE | [address] | [address] | | | TESTS | | | [...] | | | LABORATORY | | | INDONESIAN | | | SERVICES, | | | [...] + + + + | [facility] LABORATORY | [address] | [place] [address] | | | SERVICES, CORE | ZENA [...] 97 | 60 - 99 mg/dL | [facility] - | | | GLUCOSE, [...] VERDE | [address] | [place], [place] | | | TANJA HAY OF CARE | [address] | [address] | | | TESTS | | | [...] MARQUAM | [address] | [place], [place] | | | TANJA HAY OF ANNA | [address] | [address] | | | TESTS | | | [...] MARRADHAAM | [address] | [place], [place] | | | [place] POINT OF CARE | [address] | [address] | | | TESTS | | | [...] (L) | 60 - 99 mg/dL | [facility] - | | | GLUCOSE, [...] VERDE | [address] | [place], [place] | | | TANJA HAY OF CARE | [address] | [address] | | | TESTS | | | [...] MARQUAM | [address] | [place], [place] | | | TANJA HAY OF CARE | [address] | [address] | | | TESTS | | | [...] MARRADHAAM | [address] | [place], [place] | | | TANJA HAY OF CARE | [address] | [address] | | | TESTS | | | [...] (H) | 60 - 99 mg/dL | [facility] - | | | GLUCOSE, [...] VERDE | [address] | [place], [place] | | | TANJA HAY OF CARE | [address] | [address] | | | TESTS | | | [...] MARQUAM | [address] | [place], [place] | | | TANJA HAY OF CARE | [address] | [address] | | | TESTS | | | [...] AVELINAAM | [address] | [place], [place] | | | TANJA HAY OF CARE | [address] | [address] | | | TESTS | | | [...] (H) | 60 - 99 mg/dL | [facility] - | | | GLUCOSE, [...] VERDE | [address] | [place], [place] | | | TANJA HAY OF CARE | [address] | [address] | | | TESTS | | | [...] MARQUAM | [address] | [place], [place] | | | TANJA HAY OF CARE | [address] | [address] | | | TESTS | | | [...] | | | LABORATORY | | | INDONESIAN | | | SERVICES, | | | [...] + + | [facility] | [address] | [place] [address] | | | SERVICES, CORE | ZENA [...] MARQUAM | [address] | [place], [place] | | | [place] POINT OF CARE | [address] | [address] | | | TESTS | | | [...] MARQUAM | [address] | [place], [place] | | | [place] POINT OF CARE | [address] | [address] | | | TESTS | | | [...] + + + | VERITO VERDE | [address] | [place], [place] | | | TANJA HAY OF ANNA | [address] | [address] | | | TESTS | | | [...] MARQUAM | [address] | [place], [place] | | | [place] POINT OF CARE | [address] | [address] | | | TESTS | | | [...] MARQUAM | [address] | [place], [place] | | | [place] POINT OF CARE | [address] | [address] | | | TESTS | | | [...] VERDE | [address] | [place], [place] | | | TANJA HAY OF CARE | [address] | [address] | | | TESTS | | | [...] MARQUAM | [address] | [place], [place] | | | [place] POINT OF CARE | [address] | [address] | | | TESTS | | | [...] - AMMON | [address] | [place], [place] | | | [place] POINT OF CARE | [address] | [address] | | | TESTS | | | [...] | | | LABORATORY | | | INDONESIAN | | | SERVICES, | | | [...] the MDRD equation recommended by the | [facility]NSU | | National Kidney Disease Education Program. [...] [facility] | [address] | [place] [address] | | | SERVICES, CORE | PARK [...] [facility] | [address] | [place] [address] | | | SERVICESZOEY | [address] [...] MARQUAM | [address] | [place], [place] | | | TANJA HAY OF CARE | [facility] | [address] | | | TESTS | | | [...] VERDE | [address] | [place], [place] | | | TNAJA HAY OF CARE | [address] | [address] | | | TESTS | | | [...] MARQUAM | [address] | [place], [place] | | | TANJA HAY OF ANNA | [address] | [address] | | | TESTS | | | [...] AMMON | [address] | [place], [place] | | | [place] POINT OF [facility] | [address] | [address] | | | TESTS | | | [...] activity: 50-100 | | | mg/dLDepression of CYBER THREAT ANALYST: >100 mg/dLFatalities reported: >400 mg/dL | | | Acetone, Methanol and Isopropanol:<5 mg/dL: Reported as Not | | | Detected<10 mg/dL but >5 mg/dL: Reported as <10 mg/dL>10 mg/dL: | | | Reported as measured numeric value Test performed by: [facility] | | | [facility] [address] [address] | | |<5 mg/dL: Reported as Not Detected | | |<10 mg/dL but >5 mg/dL: Reported as <10 mg/dL | | |>10 mg/dL: Reported as measured numeric value | | | | | |Test performed by: | | |[facility] | | |[address] | | |[place] [address] | | + + + + + [...] VERDE | [address] | [place], [place] | | | TANJA HAY OF ANNA | [facility] | [address] | | | TESTS | | | [...] [facility] | [address] | [place] [address] | | | SERVICES, CORE | PARK [...] | | | LABORATORY | | | INDONESIAN | | | SERVICES, | | | [...] the MDRD equation recommended by the | TNSU | | National Kidney Disease Education Program. [...] [facility] | [address] | [place] [address] | | | SERVICES, CORE | PARK [...] 1.6 mmol/L | LABORATORY | | | ZEOY DODD | + + + + + + + + | Performing | Address | City/State/Zipcode | Phone Number | | Organization | | | | + + + + + | [facility] | [address] | [place] [address] | | | SERVICES, ZOEY | ZENA [...] MARQUAM | [address] | [place], [place] | | | [place] POINT OF CARE | [address] | [address] | | | TESTS | | | [...] + + + | VERITO VERDE | [address] | [place], [place] | | | TANJA HAY OF CARE | [address] | [address] | | | TESTS | | | [...] MARQUAM | [address] | [place], [place] | | | [place] POINT OF CARE | [address] | [address] | | | TESTS | | | [...] - MARQUAM | [address] | [place], [place] | | | [place] POINT OF CARE | [address] | [address] | | | TESTS | | | [...] VERDE | [address] | [place], [place] | | | [place] POINT OF CARE | [address] | [address] | | | TESTS | | | [...] | + + + + + | [facility] | [address] | [place] [address] | | | SERVICES, CORE | ZENA [...] | [facility] | [address] | [place] [address] | | | SERVICES, CORE | PARK [...] | [facility] | [address] | [place] [address] | | | SERVICES, CORE | PARK [...] - MARQUAM | [address] | [place], [place] | | | TANJA HAY OF CARE | [address] | [address] | | | TESTS | | | [...] AMMON | [address] | [place], [place] | | | TANJA HAY OF ANNA | [address] | [address] | | | TESTS | | | [...] | + + + + + | [facility] | [address] | [place], [place] | | | CARDIOLOGY | [address] | [address] | | + + + + + [...] [facility] | [address] | [place] [address] | | | SERVICES, CORE | ZENA [...] [facility] | [address] | [place] [address] | | | SERVICES, CORE | PARK [...] [facility] | [address] | [place] [address] | | | SERVICES, CORE | ZENA [...] + | [facility] | [address] [facility] | [place] [address] | | | YOUSIF, | [address] [...] | | | LABORATORY | | | INDONESIAN | | | SERVICES, | | | [...] | [facility] | [address] | [place] [address] | | | SERVICES, CORE | ZENA [...] [facility] | [address] | [place] [address] | | | SERVICES, CORE | PARK [...] [facility] | [address] | [place] [address] | | | YOUSIF, ZOEY | ZENA [...] + + + + | [facility] | [address] | [place] [address] | | | SERVICES, CORE | ZENA [...] (AA) | 60 - 99 mg/dL | [facility] - | | | GLUCOSE, [...] VERDE | [address] | [place], [place] | | | TANJA HAY OF CARE | [address] | [address] | | | TESTS | | | | + + + + + ED INFORMATION EXCHANGE (08/25/2015 9:25 PM PST) + + + + + + | Component | Value | Ref Range | Performed | Pathologist | | | | | At | Signature | + + + + + + | [facility]UD[facility] | [id number] | | [facility] | | | | [id number] | | MEDICAL | | | | [...] | ---- | | | 08/25/2015 21:25 [facility] | | | Emergency [address]. Abdominal Pain 08/24/2015 16:44 | | | [...] vomiting, | | | intractable 08/01/2015 20:43 [facility] | | | Hospital Emergency -Cyclical vomiting, intractable | | | | | | -vomiting abd pain | | | | | | -Hyperglycemia | | | | | | -Abdominal Pain | | | | | | -Generalized abdominal pain | | | | | | -Gastroparesis 07/26/2015 16:13 [facility] | | | [facility] Hospital Emergency -vomiting, pain, diabetic | | | | | | -Cyclical vomiting, not | | | intractable | | | -Vomiting | | | 05/30/2015 17:01 [facility] | | | Emergency -Abdominal Pain [...] | | | Location ------ --------- 11 [facility] | | | [facility] 1 [facility] | | | [place] 1 [facility] 1 | | | [facility] 14 Total Note: | | | Visits indicate total known visits. | | | | | | --- | | + + + + + + + + | Performing | Address | City/State/Zipcode | Phone Number | | Organization | | | | + + + + + | [facility] | [address], | [place], [place] | [phone] | | [employer] | [address] | [address] | | + + + + + [...]
--- OUTSIDE RECORDS SUMMARY | ~2019-08-28 | XMS | Encounter Summary ---
Demographics + + + | Address | [address] | | | [place] [address] | + + + | Home Phone | | + + + | Preferred Language | Unknown | + + + | Marital Status | Single | + + + | Presybeterian Affiliation | Unknown | + + + [...] | Gia Ramos | ECON | [address] | | | | | [place] | | | | | [address] | | + + + + + Care Team Providers + +------+ + | Care Director Of Rotc Name | Role | Phone | + +------+ + | Erich Yates | PCP | | + +------+ + Encounter Details +--------+ + + + + | Date | Type | Department | Care Team | Description | +--------+ + + + + | 09/13/ | Orders Only | [facility] | Conversion | | | 2017 | | [place]PH[place]OLOGY [place] | Transaction, | | | | | [address] | Provider Unknown | | | | | [address] [place], [place] | | | | | | [address] | (Fax) | | | | | [phone] | | | +--------+ + + + [...] - 1.030 | EXTERNAL | | | [place] | | | LAB | | + [...] - 1.030 | EXTERNAL | | | [place] | | | LAB | | + [...]
--- OUTSIDE RECORDS SUMMARY | ~2019-08-28 | XMS | Encounter Summary ---
Demographics + + + | Address | [address] | | | [place] [address] | + + + | Home Phone [...] Samantha Ramos | ECON | [address] | | | | | [place] | | | | | [address] | | + + + + + Care Team Providers + +------+ + | Care Share Dairy Farmer Name | Role | Phone | [...] | | | | [facility] | [place] [address] | | | | | [address] | | | | | | [place] Mailcode: | | | | | | [address] | | | | | | [place], [place] | | | | | | [address] | | | | | | [phone] | | | +--------+ + + + [...] 2019 | Encounter | | MD Harris [address] | | | | | | [place], | | | | | | [place] [address] | | | | | | [phone] | | | | | | | | +--------+ + + + + | 09/03/ | Appointment | Procedural Care Unit | | | | 2018 | | | | | +--------+ + + + + | 09/03/ | Appointment | Gastroenterology | Greg Mathis | | | 2018 | | | MD Harris [address] | | | | | | [place], | | | | | | [place] [address] | | | | | | [phone] | | | | | | | | +--------+ + + + + | 09/13/ | Office | Hematology & | Rodney | | | 2019 | Visit | Oncology | MD Leo Lees | | | | | | [place] | | | | | | [place] [address] | | | | | | [phone] | | | | | | | | +--------+ + + + + | 01/24/ | Office | Surgery | Neri Steven MD | | | 2020 | Visit | | [address] | | | | | | [place], | | | | | | [place] [address] | | | | | | [phone] | | | | | | | | +--------+ + + + + documented as of this encounter Visit Diagnoses Not on filedocumented in this encounter"
--- OUTSIDE RECORDS SUMMARY | ~2019-08-28 | XMS | Encounter Summary ---
Demographics + + + | Address | [address] | | | [place] [address] | + + + | Home Phone [...] [address] | | | | | [place] | | | | | [address] | | + + + + + Care Team Providers + +------+ + | Care Counting Machine Operator Name | Role | Phone [...] | 03/13/ | Telephone | [facility] Referral | | 2019 | | GASTROENTEROLOGY | DANA [address] | | | | | [address] [place] | [place], [address] | | | | | [address] [place], [place] | [place], [place] | | | | | [address] | [address] | | | | | [phone] | | | +--------+ + + + [...]
--- OUTSIDE RECORDS SUMMARY | ~2019-08-28 | XMS | Encounter Summary ---
Demographics + + + | Address | [address] | | | [place] [address] | + + + | Home Phone [...] Samantha Ramos | ECON | [address] | | | | | [place] | | | | | [address] | | + + + + + Care Team Providers + +------+ + | Care Poured Wall Foreman Name | Role | Phone | [...] | | | | | mellitus | [address] | [place] | | | | | ([facility]) | Phone: | [address] | | | | | Procedures | [phone] | [place], | | | | | CONSULT TO | Fax: | [place] [address] | | | | | GI PROCEDURE | [phone] | Phone: | | | | | UNIT: EGD | | [phone] | | | | | | | Fax: | | | | | | | [phone] | + +--------+ + + + + Encounter Details +--------+ + + + + | Date | Type | Department | Care Team | Description | +--------+ + + + + | 08/16/ | Sales Account Associate | Digestive [facility] | Beth Mondragon, | Diabetic | | 2019 | | [facility] at [facility] [address] | AN[address] | gastroparesis | | | | [address] | [address] | associated with type | | | | Mailcode: Center | [place], [place] | 1 diabetes mellitus | | | | for [facility] and | [address] | ([facility]) (Primary Dx) | | | | [facility] 2 | [phone] | | | | | [place], [place] | | | | | | [address] | | | | | | [phone] | | | +--------+ + + + [...] 2018 | Encounter | | MD [address] | | | | | | [address] [place] | | | | | | [place] [address] | | | | | | [phone] | | | | | | | [...] | | | | | | [place] [address] | | | | | | [phone] | | | | | | | | +--------+ + + + + | 09/13/ | Office | Hematology & | [place], | | | 2018 | Visit | Oncology | MD Nabe[address] | | | | | | [place], | | | | | | [place] [address] | | | | | | [phone] | | | | | | | | +--------+ + + + + | 01/24/ | Office | Surgery | Neri Steven MD | | | 2019 | Visit | | [address] | | | | | | [place], | | | | | | [place] [address] | | | | | | [phone] | | | | | | | | +--------+ + + + + documented as of this encounter Visit Diagnoses + + | Diagnosis | + + | Diabetic gastroparesis associated with type 1 diabetes mellitus (HCC) - Primary | + + documented in this encounter"
--- OUTSIDE RECORDS SUMMARY | ~2019-08-28 | XMS | Encounter Summary ---
Demographics + + + | Address | [address] | | | [place] [address] | + + + | Home Phone [...] | Gia Ramos | ECON | [address] | | | | | [place] | | | | | [address] | | + + + + + Care Team Providers + +------+ + | Care Practice Director Name | Role | Phone | + +------+ + | Erich Yates | PCP | | + +------+ + Encounter Details +--------+ + + + + | Date | Type | Department | Care Team | Description | +--------+ + + + + | 01/11/ | Orders Only | [facility] | Conversion | | | 2018 | | [place] | Transaction, | | | | | [address] | Provider Unknown | | | | | [address] [place], [place] | | | | | | [address] | (Fax) | | | | | [phone] | | | +--------+ + + + [...]
--- OUTSIDE RECORDS SUMMARY | ~2019-08-28 | XMS | Encounter Summary ---
Demographics + + + | Address | [address] | | | [place] [address] | + + + | Home Phone [...] Samantha Ramos | ECON | [address] | | | | | [place], [place] | | | | | [address] | | + + + + + Care Team Providers + +------+ + | Care Kiln Furniture Saw Tender Name | Role | Phone | [...] as of this encounter Progress Notes Interface, Early Childhood In - 04/25/2005 12:43 AM PDT [id number] 09/30/2004 09/30/2003 [id number] NAHOMY Durbin [facility] [address] [place], [place] [id number] or September 30, 2004 Neri Mojica M.D. [address] [place] [address] RE: BROOKS MARQUEZ II MR #: [id number] Dear Dr. Mojica: Diagnoses: 1. Type 1 diabetes. 2. Currently poor control. 3. Poor compliance. I reviewed Brooks Ogden in our Pediatric Endocrinology Clinic for the first time today. Alin is a 13-year 74-hxicq-sqs boy who was diagnosed with type 1 [...] his new step-father and brother in the [facility]. Though there is strong family history on [...] Normal sensation. Summary: Alin is a 13-year 29-vapsz-pyy boy with very poor diabetes control, secondary [...] or concerns. Yours sincerely, Ashanti Roque M.D. Baker Test of Pediatric Endocrinology / [id number] / [id number] / [id number] / documented i n this encounter Plan of Treatment +--------+ + + + + | Date | Type | Specialty | Care Team | Description | +--------+ + + + + | 09/03/ | Hospital | | Greg Mathis | | | 2019 | Encounter | | MD [address] | | | | | | [address] [place], | | | | | | [place] [address] | | | | | | [phone] | | | | | | | [...] | | | | | | [place] [address] | | | | | | [phone] | | | | | | | | +--------+ + + + + | 09/13/ | Office | Hematology & | Rodney, | | | 2019 | Visit | Oncology | MD Leo Lees | | | | | | [place] | | | | | | [place] [address] | | | | | | [phone] | | | | | | | | +--------+ + + + + | 01/24/ | Office | Surgery | Neri Steven MD | | | 2020 | Visit | | [address] | | | | | | [place] [address] [place], | | | | | | [place] [address] | | | | | | [phone] | | | | | | | | +--------+ + + + + documented as of this encounter Visit Diagnoses Not on filedocumented in this encounter"
--- OUTSIDE RECORDS SUMMARY | ~2019-08-28 | XMS | Clinical Summary ---
Demographics + + + | Address | [address] | | | [place] [address] | + + + | Home Phone [...] | Gia Ramos | ECON | [address] | | | | | [place] | | | | | [address] | | + + + + + Care Team Providers + +------+ + | Care Brake Repairer Air Name | Role | Phone | + [...] 6 | Stent | Right: | JOYCE COOK | | 07/14/ | [id number] | | - [id number]: | | | INCORPORATE | | 2020 | / | | Qty: 1 on 09/19/2018 by | | Ureter | D | | | /[id number] | | Tc Mora MD at | | | | | | 43 | | [facility] | | | | | | | | [facility] | | | | | | [...] | | | | | Signed by: Badnar Lema Chet | | Sign Date/Time: 06/10/2019 [...] | | | POC | performed at [facility];[address] | | LABORATORY | | | | [address] [facility];[place], [place] | | | | | | [address] | | | | + + + + + + + + | Specimen | + + | | + + + + + + + | Performing | Address | City/State/Zipcode | Phone Number | | Organization | | | | + + + + + | [facility] | [address] | [place] [address] | [phone] | + + + + + Troponin [...] <0.006Comment: 0.04 | 0.00 - 0.04 | [facility] | | | | ng/mL [...] at | | | | | | [facility];[address] [facility] | | | | | | [facility];[place] [address] | | | | + + + + + + + + | Specimen | + + | | + + + + + + + | Performing | Address | City/State/[facility] | Phone Number | | Organization | | | | + + + + + | [facility] | [address] | [place] [address] | [phone] | + + + + + CBC [...] [facility] | | | | performed at [facility];[address] | | LABORATORY | | | | [address];[place] | | | | | | [address] | | | | + + + + + + + + | Specimen | + + | Blood | + + + + + + + | Performing | Address | City/State/Zipcode | Phone Number | | Organization | | | | + + + + + | [facility] | [address] | [place] [address] | [phone] | + + + + + TSH (06/10/2019 5:58 AM PDT) + + + + + + | Component | Value | Ref Range | Performed | Pathologist | | | | | At | Signature | + + + + + + | TSH | 0.811Comment: Testing | 0.450 - 5.100 | [facility] | | | | performed at [facility];888 | uIU/mL | LABORATORY | | | | [address];[place], [place] | | | | | | [address] | | | | + + + + + + + + | Specimen | + + | Blood | + + + + + + + | Performing | Address | City/State/Zipcode | Phone Number | | Organization | | | | + + + + + | [facility] | [address] | [place] [address] | [phone] | + + + + + Hemoglobin A1C (06/10/2019 5:58 AM PDT) + + + + + + | Component | Value | Ref Range | Performed | Pathologist | | | | | At | Signature | + + + + + + | Hemoglobin | 8.8 (H)Comment: HbA1c | 4.0 - 6.0 % | [facility] | | | A1c | [...] | 206 (H)Comment: | <154 mg/dL | [facility] | | | Average | Estimated Average | | LABORATORY | | | Glucose | Glucose calculated from | | | | | | hemoglobin A1c by use of | | | | | | the ADArecommended | | | | | | formula.Testing | | | | | | performed at [facility], [address] | | | | | | [address], | | | | | | [place] [address] | | | | + + + + + + + + | Specimen | + + | Blood | + + + + + + + | Performing | Address | City/State/Zipcode | Phone Number | | Organization | | | | + + + + + | [facility] | [address] [facility] | [place] [address] | [phone] | + + + + + Basic [...] | | | | | performed at [facility] | | | | | | [facility];[place], [place] | | | | | | [address] | | | | + + + + + + + + | Specimen | + + | Blood | + + + + + + + | Performing | Address | City/State/Zipcode | Phone Number | | Organization | | | | + + + + + | [facility] | [address] | [place] [address] | [phone] | + + + + + ECG [...] | | | Calculated | performed at [facility], [address] | | LABORATORY | | | | [address], | | | | | | [place] [address] | | | | + + + + + + + + | Specimen | + + | Blood | + + + + + + + | Performing | Address | City/State/Zipcode | Phone Number | | Organization | | | | + + + + + | [facility] | [address] | [place] [address] | [phone] | + + + + + from [...] | [employer] | MODA | [id number] | | [phone] | | Medica | | MEDICAID HMO | HEALTH | | 018-Pr | 1 | | id | | | MDCD | | esent | | | | | | [place] | | | | | | + +--------+ +--------+ +---------+--------+ | [employer] | MODA | [id number] | | [phone] | | Medica | | MEDICAID HMO [...] [place] | | | 3 (Home) | [address] | + +--------+ +--------+ + + | Brooks Marquez | Person | Self | [birth year] | [address] | | | al/Fam | | 1990 | [phone] | [address] [place], [place] | | | lucian | | | 3 (Home) | [address] | + +--------+ +--------+ + + Advance Directives + + + + + | Type | Date Recorded | Patient | Explanation | | | | Hash Slinger | | + + + + + | Power of | | | | | It Network Architect | | | | + + + [...]
--- OUTSIDE RECORDS SUMMARY | ~2019-08-28 | XMS | Encounter Summary ---
Demographics + + + | Address | [address] | | | [place] [address] | + + + | Home Phone [...] Samantha Ramos | ECON | [address] | | | | | [place], [place] | | | | | [address] | | + + + + + Care Team Providers + +------+ + | Care Botany Professor Name | Role | Phone | [...] 2019 | Encounter | | MD Harris [address] | | | | | | [place], | | | | | | [place] [address] | | | | | | [phone] | | | | | | | [...] | | | | | | [place] [address] | | | | | | [phone] | | | | | | | | +--------+ + + + + | 09/13/ | Office | Hematology & | Rodney, | | | 2019 | Visit | Oncology | MD Leo Lees | | | | | | [place] | | | | | | [place] [address] | | | | | | [phone] | | | | | | | | +--------+ + + + + | 01/24/ | Office | Surgery | Neri Steven MD | | | 2020 | Visit | | [address] | | | | | | [place] [address] [place], | | | | | | [place] [address] | | | | | | [phone] | | | | | | | | +--------+ + + + + documented as of this encounter Visit Diagnoses Not on filedocumented in this encounter"
--- OUTSIDE RECORDS SUMMARY | ~2019-08-28 | XMS | Encounter Summary ---
Demographics + + + | Address | [address] | | | [place] [address] | + + + | Home Phone [...] Samantha Ramos | ECON | [address] # | | | | | [place] | | | | | [address] | | + + + + + Care Team Providers + +------+ + | Care Power Electronics Engineer Name | Role | Phone | [...] Operative Report | | 2006 | | [place] [facility] [address] | | | | | Transcribed | [address] | | | | | | Mailcode: [facility] | | | | | | [facility] | | | | | | [facility], [address] | | | | | | [facility] [place] | | | | | | [address] | | | | | | [phone] | | | +--------+ + + + [...] 2019 | Encounter | | MD Harris [address] | | | | | | [place] | | | | | | [place] [address] | | | | | | [phone] | | | | | | | [...] | | | | | | [place] [address] | | | | | | [phone] | | | | | | | | +--------+ + + + + | 09/13/ | Office | Hematology & | Rodnye | | | 2018 | Visit | Oncology | MD Leo Lees | | | | | | [place], | | | | | | [place] [address] | | | | | | [phone] | | | | | | | | +--------+ + + + + | 01/24/ | Office | Surgery | Neri Steven MD | | | 2019 | Visit | | [address] | | | | | | [place], | | | | | | [place] [address] | | | | | | [phone] | | | | | | | [...] | 10/13/2006 12:00 AM PST | | [id number] | | [id number] NAHOMY GROSSMAN Ramakrishna [id number] | | | | Date: 10/13/2006 | | | | Attending Surgeon: Neri Mcgarry M.D., Ph.D. | | | | Consulting Senior Practice Director(s): Stefano Clements M.D. | | | | [...] Mcgarry M.D., Ph.D. | | | | [facility] / | | [id number] / [id number] / 13284 / 88743 | | | | | | | | | | | | Electronically signed by Neri Mcgarry 10-24-2006 04:46:26 PM | | | | | + + documented in this encounter Visit Diagnoses Not on filedocumented in this encounter"
--- OUTSIDE RECORDS SUMMARY | ~2019-08-28 | XMS | Encounter Summary ---
Demographics + + + | Address | [address] | | | [place] [address] | + + + | Home Phone | | + + + | Preferred Language | Unknown | + + + | Marital Status | Single | + + + | Restorationist Affiliation | CAT | + + + [...] Samantha Ramos | ECON | [address] # | | | | | [place] | | | | | [address] | | + + + + + Care Team Providers + +------+ + | Care Chief Port Director Name | Role | Phone | + +------+ + | Neri Mojiac MD | PCP | | + +------+ + Encounter Details +--------+ + + + + | Date | Type | Department | Care Team | Description | +--------+ + + + + | 08/24/ | Document-Sc | UNKNOWN DEPARTMENT | Other, Faculty | | | 2012 | anned | [address] [facility] | [phone] | | | | | [address] | | | | | | [place], [place] | | | | | | [address] | | | +--------+ + + + [...] 2019 | Encounter | | MD Harris [address] | | | | | | [place] | | | | | | [place] [address] | | | | | | [phone] | | | | | | | [...] | | | | | | [place] [address] | | | | | | [phone] | | | | | | | | +--------+ + + + + | 09/13/ | Office | Hematology & | Rodney | | | 2018 | Visit | Oncology | MD Julia [address] | | | | | | [place] | | | | | | [place] [address] | | | | | | [phone] | | | | | | | | +--------+ + + + + | 01/24/ | Office | Surgery | Neri Steven MD | | | 2019 | Visit | | [address] | | | | | | [place], | | | | | | [place] [address] | | | | | | [phone] | | | | | | | | +--------+ + + + + documented as of this encounter Visit Diagnoses Not on filedocumented in this encounter"
--- OUTSIDE RECORDS SUMMARY | ~2019-08-28 | XMS | Encounter Summary ---
Demographics + + + | Address | [address] | | | [place] [address] | + + + | Home Phone [...] Samantha Ramos | ECON | [address] # | | | | | [place] | | | | | [address] | | + + + + + Care Team Providers + +------+ + | Care Workers Compensation Claims Examiner Name | Role | Phone | [...] [address] | | | | | [place], [place] | [place], [place] | | | | | [address] | [address] | | | | | [phone] | [phone] | | | | | | | [...] 2019 | Encounter | | MD Harris [address] | | | | | | [place], | | | | | | [place] [address] | | | | | | [phone] | | | | | | | [...] | | | | | | [place] [address] | | | | | | [phone] | | | | | | | | +--------+ + + + + | 09/13/ | Office | Hematology & | Rodney | | | 2019 | Visit | Oncology | MD Leo Lees | | | | | | [place] | | | | | | [place] [address] | | | | | | [phone] | | | | | | | | +--------+ + + + + | 01/24/ | Office | Surgery | Neri Steven MD | | | 2019 | Visit | | [address] | | | | | | [place], | | | | | | [place] [address] | | | | | | [phone] | | | | | | | [...] uIU/maurizio | | | | | [facility] | | | | | | MooBella. | | | | + + + + + + + + | Specimen | + + | | + + + + + + + | Performing | Address | City/State/Zipcode | Phone Number | | Organization | | | | + + + + + | [facility] | [address] | [place] [address] | | | LABORATORY | | | [...] + + + + + | [facility] | [address] | [place] [address] | | | LABORATORY | | | | + + + + + documented in this encounter Visit Diagnoses Not on filedocumented in this encounter"
--- OUTSIDE RECORDS SUMMARY | ~2019-08-28 | XMS | Encounter Summary ---
Demographics + + + | Address | [address] | | | [place] [address] | + + + | Home Phone [...] + + + | Author | [facility] | | | and [place] | + + + | Organization | [facility] | | | and [place] | + + + | Address | Unknown | + + + | Phone | Unavailable | + + + Support + + + + + | Name | Relationship | Address | Phone | + + + + + | Gia Ramos | ECON | [address] | | | | | [place] | | | | | [address] | | + + + + + Care Team Providers + +------+ + | Care Kidney Puller Name | Role | Phone | + [...] + + | 06/09/ | Hospital | [facility] | Diony Hollis, | | | 2019 - | Encounter | [facility] | [address] | | | | | CARE [address]LO[address] | [place] [address] | | | 06/10/ | | [address] | [phone] | | | 2019 | | [place], [place] | | | | | | [address] | Solomon Jonas MD [address] | | | | | [phone] | [address] | | | | | | [place] [address] | | | | | | [phone] | | | | | | | | | | | | Jannette Spears MD | | | | | | [address] | | | | | | [place] [address] | | | | | | [phone] | | | | | | | | | | | | Andrey Gatica DO | | | | | | [address] | | | | | | [address] | | | | | | [place] [address] | | | | | | [phone] | | | | | | | [...] note might be different from rolando hercules. [facility] MEDICAL HOSPITALIST TEAM Patient leave AGAINST MEDICAL ADVICE documentation Pt. Name/Age/: Brooks Marquez 28 y.o. 1990 Date of Admission: 06/09/2019 Date of leaving hospital AGAINST MEDICAL ADVICE: 2018 PCP: Erich Yates Note financial underwriter provider: Solomon Jonas MD HPI/Reason for Admission:-Chest pain with elevated troponin Hospital course, including complications: 28 years old gentleman with type 1 diabetes with renal complication and gastroparesis hyper tension chronic kidney disease stage III, chronic pain on narcotics status post right BKA fo r necrotizing fasciitis October 2018 transferred to [facility] from [facility] for anup st pain and elevated troponin Associated symptoms are diarrhea ongoing for which he stated as a chronic at 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 MEDICAL ADVICE before I have a [...] - 06/10/2019 4:55 AM PDTPt transferred from [facility]. Admitted by Dr. Ramakrishna Spears. Ewa greir called at approximated 5535 as patient was getting very agitated and [...] Testing | 65 - 99 mg/dL | [facility] | | | POC | performed at [facility];[address] | | LABORATORY | | | | [address];[place] | | | | | | [address] | | | | + + + + + + + + | Specimen | + + | | + + + + + + + | Performing | Address | City/State/Zipcode | Phone Number | | Organization | | | | + + + + + | [facility] | [address] | [place] [address] | [phone] | + + + + + Troponin I (06/10/2019 5:58 AM PDT) + + + + + + | Component | Value | Ref Range | Performed | Pathologist | | | | | At | Signature | + + + + + + | Troponin I | <0.006Comment: 0.04 | 0.00 - 0.04 | [facility] | | | | ng/mL [...] at | | | | | | [facility];[address] | | | | | | [address];[place] [address] | | | | + + + + + + + + | Specimen | + + | | + + + + + + + | Performing | Address | City/State/Zipcode | Phone Number | | Organization | | | | + + + + + | [facility] | [address] | [place] [address] | [phone] | + + + + + Hemoglobin A1C (06/10/2019 5:58 AM PDT) + + + + + + | Component | Value | Ref Range | Performed | Pathologist | | | | | At | Signature | + + + + + + | Hemoglobin | 8.8 (H)Comment: HbA1c | 4.0 - 6.0 % | [facility] | | | A1c | [...] | 206 (H)Comment: | <154 mg/dL | [facility] | | | Average | Estimated Average | | LABORATORY | | | Glucose | Glucose calculated from | | | | | | hemoglobin A1c by use of | | | | | | the ADArecommended | | | | | | formula.Testing | | | | | | performed at [facility], [address] | | | | | | [address], | | | | | | [place] [address] | | | | + + + + + + + + | Specimen | + + | Blood | + + + + + + + | Performing | Address | City/State/Zipcode | Phone Number | | Organization | | | | + + + + + | [facility] | [address] | [place] [address] | [phone] | + + + + + TSH (06/10/2019 5:58 AM PDT) + + + + + + | Component | Value | Ref Range | Performed | Pathologist | | | | | At | Signature | + + + + + + | TSH | 0.811Comment: Testing | 0.450 - 5.100 | [facility] | | | | performed at [facility];[address] | uIU/mL | LABORATORY | | | | [address];[place] | | | | | | [address] | | | | + + + + + + + + | Specimen | + + | Blood | + + + + + + + | Performing | Address | City/State/Zipcode | Phone Number | | Organization | | | | + + + + + | [facility] | [address] | [place] [address] | [phone] | + + + + + Basic [...] | | | | | | [facility]D [facility] traceable | | | | | | equation.Testing | | | | | | performed at [facility];[address] | | | | | | [facility];[place], [place] | | | | | | [address] | | | | + + + + + + + + | Specimen | + + | Blood | + + + + + + + | Performing | Address | City/State/Zipcode | Phone Number | | Organization | | | | + + + + + | [facility] | [address] [address] [facility] | [place] [address] | [phone] | + + + + + CBC [...] [facility] | | | | performed at [facility];[address] | | LABORATORY | | | | [address];[place], [place] | | | | | | [address] | | | | + + + + + + + + | Specimen | + + | Blood | + + + + + + + | Performing | Address | City/State/Zipcode | Phone Number | | Organization | | | | + + + + + | [facility] | [address] | [place] [address] | [phone] | + + + + + ECG [...] | | | POC | performed at [facility];[address] | | LABORATORY | | | | [address];[place] | | | | | | [address] | | | | + + + + + + + + | Specimen | + + | | + + + + + + + | Performing | Address | City/State/Zipcode | Phone Number | | Organization | | | | + + + + + | [facility] | [address] | [place] [address] | [phone] | + + + + + Troponin I (06/09/2019 11:38 PM PDT) + + + + + + | Component | Value | Ref Range | Performed | Pathologist | | | | | At | Signature | + + + + + + | Troponin I | <0.006Comment: 0.04 | 0.00 - 0.04 | [facility] | | | | ng/mL [...] at | | | | | | [facility];[address] [facility] | | | | | | [facility];[place] [address] | | | | + + + + + + + + | Specimen | + + | Blood | + + + + + + + | Performing | Address | City/State/Zipcode | Phone Number | | Organization | | | | + + + + + | [facility] | [address] | [place] [address] | [phone] | + + + + + Lipid [...] | | | Calculated | performed at [facility], [address] | | LABORATORY | | | | [address], | | | | | | [place] [address] | | | | + + + + + + + + | Specimen | + + | Blood | + + + + + + + | Performing | Address | City/State/Zipcode | Phone Number | | Organization | | | | + + + + + | [facility] | [address] | [place] [address] | [phone] | + + + + + Troponin I (06/09/2019 9:05 PM PDT) + + + + + + | Component | Value | Ref Range | Performed | Pathologist | | | | | At | Signature | + + + + + + | Troponin I | 0.006Comment: 0.04 | 0.00 - 0.04 | [facility] | | | | ng/mL [...] at | | | | | | [facility];[address] [facility] [address] | | | | | | [facility];[place] [address] | | | | + + + + + + + + | Specimen | + + | Blood | + + + + + + + | Performing | Address | City/State/Zipcode | Phone Number | | Organization | | | | + + + + + | [facility] | [address] | [place] [address] | [phone] | + + + + + POC [...] | | | POC | performed at [facility];[address] | | LABORATORY | | | | [address];[place], [place] | | | | | | [id number] | | | | + + + + + + + + | Specimen | + + | | + + + + + + + | Performing | Address | City/State/Zipcode | Phone Number | | Organization | | | | + + + + + | [facility] | [address] | [place] [address] | [phone] | + + + + + documented [...]
--- OUTSIDE RECORDS SUMMARY | ~2019-08-28 | XMS | Encounter Summary ---
Demographics + + + | Address | [address] | | | [place] [address] | + + + | Home Phone [...] Samantha Ramos | ECON | [address] # | | | | | [place] | | | | | [address] | | + + + + + Care Team Providers + +------+ + | Care Blister Rust Eradicator Name | Role | Phone | + [...] | | | | [facility] | [address] | | | | | | CLINIC | [address] | | | | | | FIFI | [place] | | | | | | BUILDING | Mailcode: | | | | | | [address] | [address] | | | | | | [address] | [address] | | | | | | [place], | [place], [place] | | | | | | [place] [address] | [address] | | | | | | Phone: | Phone: | | | | | | [phone] | [phone] | | | | | | Fax: | Fax: | | | | | | [phone] | [phone] | +--------+--------+ + + + + Encounter [...] Rd | | | | | [facility] | [place], [place] | | | | | [address] | [address] | | | | | [place] Mailcode: | [phone] | | | | | [address] | | | | | | [place], [place] | | | | | | [address] | | | | | | [phone] | | | +--------+ + + + [...] as of this encounter Progress Notes Interface, Assembly Machine Operator In - 12/15/2006 6:28 AM PDT [id number] NAHOMY ANDRADE BROOKS [place] [id number] Clinic Date: 11/02/2006 Clinic: Pediatric Endocrinology Problem [...] necessary. Ashanti Roque M.D. JEREMY / CONTRERAS [id number] / [id number] / [id number] / [id number] cc: Neri Mojica M.D. [address] [facility] [address] Pena, [facility] [id number], Account: [id number], DocSeq: [id number] Addendum December 09 2006 Alin's random urine [...] | | | | | | [place] [address] | | | | | | [phone] | | | | | | | [...] | | | | | | [place] [address] | | | | | | [phone] | | | | | | | | +--------+ + + + + | 12/19/ | Office | Hematology & | Rodney, | | | 2018 | Visit | Oncology | MD Nabeel [address] | | | | | | [place], | | | | | | [place] [address] | | | | | | [phone] | | | | | | | | +--------+ + + + + | 01/24/ | Office | Surgery | Neri Steven MD | | | 2019 | Visit | | [address] | | | | | | [place], | | | | | | [place] [address] | | | | | | [phone] | | | | | | | [...] VERDE | [address] | [place], [place] | | | [place] [facility] | [address] | [address] | | | TESTS | | | | + + + + + | [facility] | [address] | [place], [place] | | | TESTS | [address] | [address] | | + + + + + documented in this encounter Visit Diagnoses Not on filedocumented in this encounter"
--- OUTSIDE RECORDS SUMMARY | ~2019-08-28 | XMS | Encounter Summary ---
Demographics + + + | Address | [address] | | | [place] [address] | + + + | Home Phone [...] Samantha Ramos | ECON | [address] # | | | | | [place] | | | | | [address] | | + + + + + Care Team Providers + +------+ + | Care Shoe Fitter Name | Role | Phone | [...] | | | | [facility] | [address] | | | | | | CLINIC | [address] | | | | | | FIFI | [place] | | | | | | BUILDING | Mailcode: | | | | | | [address] | [address] | | | | | | [address] | [place] | | | | | | [place], | [place], [place] | | | | | | [place] [address] | [address] | | | | | | Phone: | Phone: | | | | | | [phone] | [phone] | | | | | | Fax: | Fax: | | | | | | [phone] | [phone] | +--------+--------+ + + + + Encounter [...] Rd | | | | | [facility] | [place], [place] | | | | | [address] | [address] | | | | | [place] Mailcode: | [phone] | | | | | [address] | | | | | | [place], [place] | | | | | | [address] | | | | | | [phone] | | | +--------+ + + + [...] as of this encounter Progress Notes Interface, Bankruptcy Judge In - 12/15/2006 6:28 AM PDT [id number] NAHOMY ANDRADE BROOKS [place] [id number] Clinic Date: 11/02/2006 Clinic: Pediatric Endocrinology Problem [...] to his insulin regimen as necessary. Ashanti oRque M.D. JEREMY / CONTRERAS [id number] / [id number] / [id number] / [id number] cc: Neri Mojica M.D. [address] [facility] [address] Pena, [facility] [id number], Account: [id number], DocSeq: [id number] Addendum December 09 2006 Alin's random urine [...] | | | | | | [place] [address] | | | | | | [phone] | | | | | | | [...] | | | | | | [place] [address] | | | | | | [phone] | | | | | | | | +--------+ + + + + | 12/19/ | Office | Hematology & | Rodney, | | | 2018 | Visit | Oncology | MD Nabeel [address] | | | | | | [place], | | | | | | [place] [address] | | | | | | [phone] | | | | | | | | +--------+ + + + + | 01/24/ | Office | Surgery | Neri Steven MD | | | 2019 | Visit | | [address] | | | | | | [place], | | | | | | [place] [address] | | | | | | [phone] | | | | | | | [...] VERDE | [address] | [place], [place] | | | [place] [facility] | [address] | [address] | | | TESTS | | | | + + + + + | [facility] | [address] | [place], [place] | | | TESTS | [address] | [address] | | + + + + + documented in this encounter Visit Diagnoses Not on filedocumented in this encounter"
--- OUTSIDE RECORDS SUMMARY | ~2019-08-28 | XMS | Encounter Summary ---
Demographics + + + | Address | [address] | | | [place] [address] | + + + | Home Phone | | + + + | Preferred Language | Unknown | + + + | Marital Status | Single | + + + | Mormon Affiliation | CAT | + + + [...] Samantha Ramos | ECON | [address] # | | | | | [place] | | | | | [address] | | + + + + + Care Team Providers + +------+ + | Care Estate And Trust Tax Principal Name | Role | Phone | + +------+ + | Neri Mojica MD | PCP | | + +------+ + Encounter Details +--------+ + + + + | Date | Type | Department | Care Team | Description | +--------+ + + + + | 07/16/ | Documentati | Orthopaedics at | Neri Mcgarry, | | | 2005 | on | [address] | [address] | | | | | [address] | [address] | | | | | Mailcode: PV430 | [facility] [place] | | | | | [facility] | [address] | | | | | [place], [place] | [phone] | | | | | [address] | | | | | | [phone] | | | +--------+ + + + [...] 2019 | Encounter | | MD Harris [address] | | | | | | [place], | | | | | | [place] [address] | | | | | | [phone] | | | | | | | | +--------+ + + + + | 09/03/ | Appointment | Procedural Care Unit | | | | 2018 | | | | | +--------+ + + + + | 09/03/ | Appointment | Gastroenterology | Greg Mathis | | | 2018 | | | MD Harris [address] | | | | | | [place], | | | | | | [place] [address] | | | | | | [phone] | | | | | | | | +--------+ + + + + | 09/13/ | Office | Hematology & | Rodney | | | 2019 | Visit | Oncology | MD Leo Lees | | | | | | [place], | | | | | | [place] [address] | | | | | | [phone] | | | | | | | | +--------+ + + + + | 01/24/ | Office | Surgery | Neri Steven MD | | | 2020 | Visit | | [address] | | | | | | [place], | | | | | | [place] [address] | | | | | | [phone] | | | | | | | | +--------+ + + + + documented as of this encounter Visit Diagnoses Not on filedocumented in this encounter"
--- OUTSIDE RECORDS SUMMARY | ~2019-08-28 | XMS | Encounter Summary ---
Demographics + + + | Address | [address] | | | [place] [address] | + + + | Home Phone [...] Samantha Ramos | ECON | [address] # | | | | | [place] | | | | | [address] | | + + + + + Care Team Providers + +------+ + | Care Manager Pricing Name | Role | Phone | + +------+ + | Erich Yates PA-C | PCP | | + +------+ + Encounter Details +--------+ + + + + | Date | Type | Department | Care Team | Description | +--------+ + + + + | 07/06/ | Transcribe | [facility] | Transcribe | | | 2019 | Orders | [facility] [address] | Encounter, Provider, | | | | | [place] Mailcode: | [address] | | | | | [facility] | [place] [address] | | | | | [facility] He[facility], | | | | | | Building [address] | | | | | | [place], [place] | | | | | | [address] | | | | | | [phone] | | | +--------+ + + + [...] 2018 | Encounter | | MD Harris [address] | | | | | | [place], | | | | | | [place] [address] | | | | | | [phone] | | | | | | | [...] | | | | | | [place] [address] | | | | | | [phone] | | | | | | | | +--------+ + + + + | 09/13/ | Office | Hematology & | Rodney, | | | 2018 | Visit | Oncology | MD Nabeel [address] | | | | | | [place], | | | | | | [place] [address] | | | | | | [phone] | | | | | | | | +--------+ + + + + | 01/24/ | Office | Surgery | Neri Steven MD | | | 2019 | Visit | | [address] | | | | | | [place], | | | | | | [place] [address] | | | | | | [phone] | | | | | | | [...]
--- OUTSIDE RECORDS SUMMARY | ~2019-08-28 | XMS | Clinical Summary ---
Demographics + + + | Address | [address] | | | [place] [address] | + + + | Home Phone [...] Samantha Ramos | ECON | [address] # | | | | | [place], [place] | | | | | [address] | | + + + + + Care Team Providers + +------+ + | Care Textile Stylist Name | Role | Phone | + +------+ + | Erich Yates PA-C | PCP | | + +------+ + Source Comments VERITO is fully live on both [facility] and [facility] InPatient.[facility] Allergies + + + + + + [...] + + + + | 08/16/ | Underground Utility Locator | Surgery | Beth Mondragon, | Diabetic [...] + + + + | 07/04/ | Underground Utility Locator | Surgery | Neri Steven MD | [...] 2018 | Encounter | | MD Harris [address] | | | | | | [place], | | | | | | [place] [address] | | | | | | [phone] | | | | | | | | +--------+ + + + + | 09/03/ | Appointment | Procedural Care Unit | | | | 2018 | | | | | +--------+ + + + + | 09/03/ | Appointment | Gastroenterology | AaronshannoncristinGreg | | | 2018 | | | MD Harris [address] | | | | | | [place], | | | | | | [place] [address] | | | | | | [phone] | | | | | | | | +--------+ + + + + | 09/13/ | Office | Hematology & | Rodney, | | | 2018 | Visit | Oncology | MD Nabeel [address] | | | | | | [place], | | | | | | [place] [address] | | | | | | [phone] | | | | | | | | +--------+ + + + + | 01/24/ | Office | Surgery | Neri Steven MD | | | 2019 | Visit | | [address] | | | | | | [place], | | | | | | [place] [address] | | | | | | [phone] | | | | | | | [...] [address] | [place], [place] | [phone] | | [place] | | | | [...] - | [address] | [place], [place] | [phone] | | [place] | | | | [...] | [address] | [place] | [phone] | | [place] | | | | [...] [address] | [place], [place] | [phone] | | [place]UN | | | | [...] | + + + + + | [facility] | [address] | [place] [address] | | | SERVICES, CORE | ZENA [...] + | [facility] | [address] | [place] [address] | | | [place] | | | [...] MDRD equation recommended by the National | [facility] | | Kidney Disease Education Program. Estimated [...] | + + + + + | [facility] | [address] | [place] [address] | | | SERVICES, CORE | PARK [...] Male | 50 - 200 ng/mL | PASU | | | | and Female >18 [...] | + + + + + | [facility] | [address] | [place] [address] | | | ZOEY DODD | ZENA [...] | | | + +--------+ +--------+-------+---------+--------+ | SPEAKER MOUNTER MEDICAID | SPEAKER MOUNTER | xxxxxxxx | 04/03/20 | | | [...] | | lucian | | | 9 ([place]) | [address] | + +--------+ +--------+ + + Advance [...]
--- OUTSIDE RECORDS SUMMARY | ~2019-08-28 | XMS | Encounter Summary ---
Demographics + + + | Address | [address] | | | [place] [address] | + + + | Home Phone | | + + + | Preferred Language | Unknown | + + + | Marital Status | Single | + + + | Confucianism Affiliation | CAT | + + + [...] Samantha Ramos | ECON | [address] # | | | | | [place] | | | | | [address] | | + + + + + Care Team Providers + +------+ + | Care Manager Business Name | Role | Phone | [...] [address] | | | | | [place], [place] | [place], [place] | | | | | [address] | [address] | | | | | [phone] | [phone] | | | | | | | [...] 2019 | Encounter | | MD Harris [address] | | | | | | [place], | | | | | | [place] [address] | | | | | | [phone] | | | | | | | [...] | | | | | | [place] [address] | | | | | | [phone] | | | | | | | | +--------+ + + + + | 09/13/ | Office | Hematology & | Rodney | | | 2019 | Visit | Oncology | MD Leo Lees | | | | | | [place] | | | | | | [place] [address] | | | | | | [phone] | | | | | | | | +--------+ + + + + | 01/24/ | Office | Surgery | Neri Steven MD | | | 2019 | Visit | | [address] | | | | | | [place], | | | | | | [place] [address] | | | | | | [phone] | | | | | | | [...] | | | SERUM | performed by [facility] | | | | | | [facility] | | | | | | Hyper Wear. | | | | + + + + + + + + | Specimen | + + | | + + + + + + + | Performing | Address | City/State/Zipcode | Phone Number | | Organization | | | | + + + + + | [facility] | [address] | [place] [address] | | | LABORATORY | | | [...] + + + + + | [facility] | [address] | [place] [address] | | | LABORATORY | | | | + + + + + documented in this encounter Visit Diagnoses Not on filedocumented in this encounter"
--- OUTSIDE RECORDS SUMMARY | ~2019-08-28 | XMS | Encounter Summary ---
Demographics + + + | Address | [address] | | | [place] [address] | + + + | Home Phone [...] Samantha Ramos | ECON | [address] # | | | | | [place] | | | | | [address] | | + + + + + Care Team Providers + +------+ + | Care Polishing Machine Operator Name | Role | Phone [...] [address] | | | | | [place], [place] | [place], [place] | | | | | [address] | [address] | | | | | [phone] | [phone] | | | | | | | [...] 2019 | Encounter | | MD Harris [address] | | | | | | [place], | | | | | | [place] [address] | | | | | | [phone] | | | | | | | [...] | | | | | | [place] [address] | | | | | | [phone] | | | | | | | | +--------+ + + + + | 09/13/ | Office | Hematology & | Rodney | | | 2019 | Visit | Oncology | MD Leo Lees | | | | | | [place] | | | | | | [place] [address] | | | | | | [phone] | | | | | | | | +--------+ + + + + | 01/24/ | Office | Surgery | Neri Steven MD | | | 2020 | Visit | | [address] | | | | | | [place], | | | | | | [place] [address] | | | | | | [phone] | | | | | | | [...] | | | | | URINE-CARLOS | [facility] | | | | | [...] + + + | [facility] | [address] | [place] [address] | | | LABORATORY | | | | + + + + + documented in this encounter Visit Diagnoses Not on filedocumented in this encounter"
--- OUTSIDE RECORDS SUMMARY | ~2019-08-28 | XMS | Encounter Summary ---
Demographics + + + | Address | [address] | | | [place] [address] | + + + | Home Phone [...] + + | Author | [facility] | | | and [place] | + + + | Organization | [facility] | | | and [place] | + + + | Address | Unknown | + + + | Phone | Unavailable | + + + Support + + + + + | Name | Relationship | Address | Phone | + + + + + | Gia Ramos | ECON | [address] | | | | | [place] | | | | | [address] | | + + + + + Care Team Providers + +------+ + | Care Hospital Education Coordinator Name | Role | Phone | [...] | 09/19/ | Anesthesia | [facility] | Tereso Dillon, | | | 2017 | Event | MED CTR OR INTRA OP | MD [address] | | | | | [address] | [place] | | | | | [place] | [address] | | | | | [address] | | | | | | [phone] | | | +--------+ + + + [...] +----+---+ + + | | 2 | [place] | | | | 0 | 43-degrees | | | | 4 | | | | | 8 | | | +----+---+ + + | | 2 | First | | | | 0 | Inc/Proc St | | | | 5 | | | | | 4 | | | +----+---+ + + | | 2 | [place] off | | | | 1 | [...] - 09/19/2018 8:55 PM PST Anesthesia Airway Lndqxkvhd04/25/2018 | | 20:40Preprocedure check: patient identified, suction, [...]
--- OUTSIDE RECORDS SUMMARY | ~2019-08-28 | XMS | Encounter Summary ---
Demographics + + + | Address | [address] | | | [place] [address] | + + + | Home Phone | | + + + | Preferred Language | Unknown | + + + | Marital Status | Single | + + + | Mandaeism Affiliation | CAT | + + + [...] Samantha Ramos | ECON | [address] # | | | | | [place] | | | | | [address] | | + + + + + Care Team Providers + +------+ + | Care Cylinder Inspector Name | Role | Phone | + +------+ + PCP | Unavailable | + +------+ + Encounter Details +--------+ + + + + | Date | Type | Department | Care Team | Description | +--------+ + + + + | 08/27/ | Office | [facility] | Clinic, Pediatric | Progress Note | | 2005 | Visit-Trans | LIFE MANAGEMENT TEACHER | Endocrinology | | | | cribed [...] as of this encounter Progress Notes Interface, Pediatric Oncologist In - 10/18/2005 10:01 PM PST [id number] MARQUEZ RAYMOND BROOKS [facility] [facility] Date: 08/27/2005 [...] the school week, his father lives in [place], and apparently the school is better and [...] was 56. Diet: Brooks is on a zudthodjwyaf-im-ybeccmu ratio. He has had dietary education about [...] sites. Assessment: Brooks is a 14-year and 09-yoktz-gls boy with type 1 diabetes, who has poor control although it is somewhat improved from previously. He is relatively noncompliant with his diabetes. I have made the following recommendations: 1. I have asked the family to review carbohydrate counting with our nurses' registry director today. 2. I have recommended to Brooks [...] in 4 months' time. Ashanti Roque M.D. Newspaper Distributor Supervisor Pediatric Endocrinology / [id number] / [id number] / 07056 / 40350 cc: Neri Mojica [address] [place] [address]. Electronically signed by Ashanti Roque 09-10-2005 04:52:54 [...] | | | | | | [place] [address] | | | | | | [phone] | | | | | | | [...] | | | | | | [place] [address] | | | | | | [phone] | | | | | | | | +--------+ + + + + | 09/13/ | Office | Hematology & | Rodney, | | | 2019 | Visit | Oncology | MD Nabeel [address] | | | | | | [place], | | | | | | [place] [address] | | | | | | [phone] | | | | | | | | +--------+ + + + + | 01/24/ | Office | Surgery | Neri Steven MD | | | 2019 | Visit | | [address] | | | | | | [place] | | | | | | [place] [address] | | | | | | [phone] | | | | | | | | +--------+ + + + + documented as of this encounter Visit Diagnoses Not on filedocumented in this encounter"
--- OUTSIDE RECORDS SUMMARY | ~2019-08-28 | XMS | Encounter Summary ---
Demographics + + + | Address | [address] | | | [place] [address] | + + + | Home Phone [...] | Gia Ramos | ECON | [address] | | | | | [place] | | | | | [address] | | + + + + + Care Team Providers + +------+ + | Care Contract Writer Name | Role | Phone | + +------+ + | Erich Yates | PCP | | + +------+ + Encounter Details +--------+ + + + + | Date | Type | Department | Care Team | Description | +--------+ + + + + | 03/16/ | Orders Only | [facility] | Winston Whitman MD | | | 2018 | | NEPHROLOGY [place] | [address] [place] | | | | | [address] [place] | [address] [place], [place] | | | | | [address] [place], [place] | [address] | | | | | [address] | | | | | | [phone] | | | +--------+ + + + [...] | | | LAB | | | [facility] | | | | | + + [...]
--- OUTSIDE RECORDS SUMMARY | ~2019-08-28 | XMS | Encounter Summary ---
Demographics + + + | Address | [address] | | | [place] [address] | + + + | Home Phone | | + + + | Preferred Language | Unknown | + + + | Marital Status | Single | + + + | Congregational Affiliation | CAT | + + + [...] Samantha Ramos | ECON | [address] | | | | | [place], [place] | | | | | [address] | | + + + + + Care Team Providers + +------+ + | Care Motor And Controls Tester Name | Role | Phone | [...] as of this encounter Progress Notes Interface, Detective Sergeant In - 04/25/2005 12:43 AM [facility] [id number] NAHOMY [facility] Date: 09/30/2004 Clinic: P[facility]ATR[facility]PATIENT [facility]AB[facility]ES [facility]INIC Subjective: Alin is an almost 14-year-old young boy with type 1 diabetes. The family is new to clinic, here to establish care for his ongoing diabetes management. Alin is usually followed by his primary care doctor, Dr. Mojica in [place]. The family does have several questions and are quite interactive in today's visit. Previous Diabetes Education: Alin was diagnosed with type 1 diabetes on April 2002, at that time, he was admitted to the hospital in [place], [place] where the family did receive initial [...] dosing. Injection sites have primarily consisted of lAin's abdomen. We did recommend that he use [...] to the football practice. Meal Planning: The chief of pediatric urology Shnanon Early did meet with the family at [...] also involved in football. 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 I discussed the importance of [...] the family's first visit here to the [facility]. The family is interactive at [...] Team. Estefany Hathaway R.N. ANA / CONTRERAS [id number] / [id number] / [id number] / [id number] CDRCP Electronically signed by Estefany Hathaway 10-05-2004 [...] | | | | | | [place] [address] | | | | | | [phone] | | | | | | | [...] | | | | | | [place] [address] | | | | | | [phone] | | | | | | | | +--------+ + + + + | 09/13/ | Office | Hematology & | Rodney, | | | 2018 | Visit | Oncology | MD Nabeel [address] | | | | | | [place], | | | | | | [place] [address] | | | | | | [phone] | | | | | | | | +--------+ + + + + | 01/24/ | Office | Surgery | Neri Steven MD | | | 2019 | Visit | | [address] | | | | | | [place], | | | | | | [place] [address] | | | | | | [phone] | | | | | | | | +--------+ + + + + documented as of this encounter Visit Diagnoses Not on filedocumented in this encounter
--- OUTSIDE RECORDS SUMMARY | ~2019-08-28 | XMS | Encounter Summary ---
Demographics + + + | Address | [address] | | | [place] [address] | + + + | Home Phone [...] | Gia Ramos | ECON | [address] | | | | | [place] | | | | | [address] | | + + + + + Care Team Providers + +------+ + | Care Industrial Safety And Health Manager Name | Role | Phone | [...] | Services | ogy | Diabetic | [facility], | Greg Bernardo MD | | | Required | | gastroparesi | V[place], | [address] | | | | | s (HCC) | MATERIALS COORDINATOR [address] [place] | | | | | Malnutrition | [place], [place] | [address] | | | | | , | [address] [place] | [place], [place] | | | | | unspecified | [place], [place] | [address] | | | | | type (HCC) | [address] | Phone: | | | | | Weight loss | Phone: | [phone] | | | | | | [phone] | Fax: | | | | | | Fax: | [phone] | | | | | | [phone] | | +--------+ + + + + [...] | [address] [place] | [place], [place] [address] | (HCC) (Primary Dx); | | | | [address] [place], [place] | [place], [place] | Diabetic | | | | [address] | [id number] | gastroparesis (HCC); | | | | [phone] | | Weight loss | +--------+ + [...] type | | | | | | ([facility]) Weight loss | | + + +--------+ + + documented as of this encounter Visit Diagnoses + + | Diagnosis | + + | Malnutrition, unspecified type ([facility]) - Primary | + + | Diabetic gastroparesis ([facility]) 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
--- OUTSIDE RECORDS SUMMARY | ~2019-08-28 | XMS | Encounter Summary ---
Demographics + + + | Address | [address] | | | [place] [address] | + + + | Home Phone | | + + + | Preferred Language | Unknown | + + + | Marital Status | Single | + + + | Anglican Affiliation | CAT | + + + [...] Samantha Ramos | ECON | [address] # | | | | | [place], [place] | | | | | [address] | | + + + + + Care Team Providers + +------+ + | Care Software Licensing Analyst Name | Role | Phone | [...] 2019 | Encounter | | MD Harris [address] | | | | | | [place], | | | | | | [place] [address] | | | | | | [phone] | | | | | | | [...] | | | | | | [place] [address] | | | | | | [phone] | | | | | | | | +--------+ + + + + | 09/13/ | Office | Hematology & | Rodney, | | | 2019 | Visit | Oncology | MD Leo Lees | | | | | | [place] | | | | | | [place] [address] | | | | | | [phone] | | | | | | | | +--------+ + + + + | 01/24/ | Office | Surgery | Neri Steven MD | | | 2020 | Visit | | [address] | | | | | | [place], | | | | | | [place] [address] | | | | | | [phone] | | | | | | | | +--------+ + + + + documented as of this encounter Visit Diagnoses Not on filedocumented in this encounter"
--- OUTSIDE RECORDS SUMMARY | ~2019-08-28 | XMS | Encounter Summary ---
Demographics + + + | Address | [address] | | | [place] [address] | + + + | Home Phone [...] Samantha Ramos | ECON | [address] # | | | | | [place] | | | | | [address] | | + + + + + Care Team Providers + +------+ + | Care Environmental Studies Faculty Member Name | Role | Phone | + [...] | | [facility] | [place], [place] | | | | | [address] [facility] | [address] | | | | | [facility] Mailcode: | [phone] | | | | | [address] | | | | | | [place], [place] | | | | | | [address] | | | | | | [phone] | | | +--------+--------+ + + + [...] | | | | | | [place] [address] | | | | | | [phone] | | | | | | | [...] | | | | | | [place] [address] | | | | | | [phone] | | | | | | | | +--------+ + + + + | 09/13/ | Office | Hematology & | Rodney, | | | 2018 | Visit | Oncology | MD Nabeel [address] | | | | | | [place], | | | | | | [place] [address] | | | | | | [phone] | | | | | | | | +--------+ + + + + | 01/24/ | Office | Surgery | Neri Steven MD | | | 2019 | Visit | | [address] | | | | | | [place], | | | | | | [place] [address] | | | | | | [phone] | | | | | | | | +--------+ + + + + documented as of this encounter Visit Diagnoses Not on filedocumented in this encounter"
--- OUTSIDE RECORDS SUMMARY | ~2019-08-28 | XMS | Encounter Summary ---
Demographics + + + | Address | [address] | | | [place] [address] | + + + | Home Phone | | + + + | Preferred Language | Unknown | + + + | Marital Status | Single | + + + | Oriental Orthodox Affiliation | CAT | + + [...] Samantha Ramos | ECON | [address] # | | | | | [place] | | | | | [address] | | + + + + + Care Team Providers + +------+ + | Care Kitchen Stewardess Name | Role | Phone | + [...] Mailcode: | | | | | | [place], [place] | [address] | | | | | manifestatio | [address] | for Health | | | | | n (FORMERLY [facility]) | Phone: | and Healing, | | | | | Procedures | [phone] | Building [address], | | | | | CONSULT TO | Fax: | 11th Floor | | | | | OPHTHALMOLOG | [phone] | [place], [place] | | | | | Y | | [address] | | | | | | | Phone: | | | | | | | [phone] | | | | | | | Fax: | | | | | | | [phone] | +--------+--------+ + + + + Reason [...] | | | | | without | [facility] | [facility] | | | | | coma | Rd | Rd | | | | | associated | [place], [place] | Physician's | | | | | with type 1 | [address] | [facility] | | | | | diabetes | Phone: | [address] | | | | | mellitus | [phone] | [place], [place] | | | | | ([facility]LY [facility]) Type | Fax: | [address] | | | | | 1 diabetes | [phone] | Phone: | | | | | mellitus | | [phone] | | | | | with | | Fax: | | | | | hyperglycemi | | [phone] | | | | | a (HCC) [...] | | | [address] | [place], [place] | ([facility]) (Primary Dx); | | | | [address] | [address] | Hyperglycemia due to | | | | Physician's | [phone] | type 1 diabetes | | | | [facility] [address] | | mellitus (HCC); Leg | | | | [place], [place] | | wound, right, | | | | [address] | | initial encounter | | | | [phone] | | | +--------+---------+ + + + [...] be different f rom the original. [facility] Diabetes Clinic New Patient Consultation Referring physician: Jaison Pascual DO Primary care provider: Jaison Pascual DO Reason for Consultation: Type 1 diabetes History of Present Illness: This is a new patient to my clinic. Brooks Marquez II is a 24 y.o. male referred for evaluation of type 1 diabetes. Diagnosed in 2001. Seen in childhood in [facility] pediatric endocr inology. Long-standing suboptimal control. Diabetes complicated by gastroparesis and has bee n seen in the ER frequently. Multiple past episodes of DKA, most recently earlier this month at [facility]. Frequent nausea. Doing well since discharge and no current issues with vomiting. N o numbness/tingling. Did not have insurance for a period of time and was paying out of [employer] for his insulin approx 1 year ago [...] tobacco use: 1/2 ppd. 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 Allergies: Allergies Allergen Reactions Codeine Nausea and [...] random - Final result (09/02/2015 8:48 AM [facility]) Component Value Range Microalb, Ur 1337.2 (H) [...] due to type 1 diabetes mellitus ([facility]) S81.801A Leg wound, right, initial encounter A1C [...] in lower extremities. Already scheduled to s cake froster. Discussed conservative measures for wound and signs/symptoms [...] 2018 | Encounter | | MD Harris [address] | | | | | | [place], | | | | | | [place] [address] | | | | | | [phone] | | | | | | | | +--------+ + + + + | 09/03/ | Appointment | Procedural Care Unit | | | | 2018 | | | | | +--------+ + + + + | 09/03/ | Appointment | Gastroenterology | Greg Mathis | | | 2018 | | | MD Harris [address] | | | | | | [place], | | | | | | [place] [address] | | | | | | [phone] | | | | | | | | +--------+ + + + + | 09/13/ | Office | Hematology & | Rodney, | | | 2018 | Visit | Oncology | MD Nabeel [address] | | | | | | [place], | | | | | | [place] [address] | | | | | | [phone] | | | | | | | | +--------+ + + + + | 01/24/ | Office | Surgery | Neri Steven MD | | | 2019 | Visit | | [address] | | | | | | [place], | | | | | | [place] [address] | | | | | | [phone] | | | | | | | [...] | | | LABORATORY | | | STATELESS | | | SERVICES, | | | [...] | + + + + + | [facility] | [address] | [place] [address] | | | SERVICES, CORE | ZENA [...]
--- OUTSIDE RECORDS SUMMARY | ~2019-08-28 | XMS | Encounter Summary ---
Demographics + + + | Address | [address] | | | [place] [address] | + + + | Home Phone [...] | Gia Ramos | ECON | [address] | | | | | [place] | | | | | [address] | | + + + + + Care Team Providers + +------+ + | Care Deposition Reporter Name | Role | Phone | + [...] + + | 09/19/ | Hospital | [facility] | Tc Mora | Right ureteral | | 2018 - | Encounter | MED CTR SUR[facility]ICAL | MD Boyd [address] | stone; Acute kidney | | | | [address] | [place], [place] | injury (HCC); Flank | | 09/20/ | | [place] [address] | [address] | pain; | | 2018 | | [phone] | | Hydronephrosis, | | | | [...] might be differ ent from the original. [facility] Urology Progress Note Brooks Marquez [...] + | [facility] | [address] | [place] | [phone] | | [facility] | | [address] | | | - LABORATORY | | [...] | | | | | mmol/L | [facility] | | | | | | MEDICAL | | | | | | CENTER - | | | | | | LABORATORY | | + + + + + + | K | 5.7 (H) | 3.5 - 5.1 | [facility] | | | | | mmol/L | [facility] | | | | | | [...] mL/min/1.73m2 | [facility] | | | [place] | RATE,ESTIMATED | | MEDICAL | | | | mL/min/1.12j4Lpya than | | CENTER - | | [...] [address] | [place] | [phone] | | [facility] | | [address] | | | - LABORATORY | | [...] [address] | [place] | [phone] | | [facility] | | [address] | | | - LABORATORY | | [...] this test. These results should be | [facility] | | integrated into the clinical context for interpretation. | [facility] | | | - LABORATORY | + + + + + + + + | Performing | Address | City/State/Zipcode | Phone Number | | Organization | | | | + + + + + | [facility] | [address] | [place], [place] | [phone] | | [facility] | | [address] | | | - LABORATORY | | [...] [address] | [place] | [phone] | | [facility] | | [address] | | | - LABORATORY | | [...] - 1.030 | [facility] | | | [place] | | | [facility] | | [...] + | [facility] | [address] | [place], [place] | [phone] | | [facility] | | [address] | | | - LABORATORY | | [...] + | [facility] | [address] | [place] | [phone] | | [facility] | | [address] | | | - LABORATORY | | [...] [address] | [place] | [phone] | | [facility] | | [address] | | | - LABORATORY | | [...] [address] | [place] | [phone] | | [facility] | | [address] | | | - LABORATORY | | [...] [address] | [place] | [phone] | | [facility] | | [address] | | | - LABORATORY | | [...] 2.07 (H) | 0.60 - 1.30 | [facility] | | | [...] mL/min/1.73m2 | [facility] | | | [place] | RATE,ESTIMATED | | MEDICAL | | | | mL/min/1.97d9Umwx than | | CENTER - | | [...] + | [facility] | [address] | [place] | [phone] | | [facility] | | [address] | | | - LABORATORY | | [...] [address] | [place] | [phone] | | [facility] | | [address] | | | - LABORATORY | | [...] MD | | | | | | ([address]) on 09/21/2018 | | | | | [...] [address] | [place] | [phone] | | [facility] | | [address] | | | - LABORATORY | | [...] [address] | [place] | [phone] | | [facility] | | [address] | | | - LABORATORY | | [...] | MEDICAL | | | | Eddy Cta RN | | CENTER - | | [...] mL/min/1.73m2 | [facility] | | | [place] | RATE,ESTIMATED | | MEDICAL | | | | mL/min/1.34v4Klmj than | | CENTER - | | [...] [address] | [place] | [phone] | | [facility] | | [address] | | | - LABORATORY | | [...] [address] | [place] | [phone] | | [facility] | | [address] | | | - LABORATORY | | [...] mL/min/1.73m2 | [facility] | | | [place] | RATE,ESTIMATED | | MEDICAL | | | | mL/min/1.71e6Mmjb than | | CENTER - | | [...] ST. | [address] | [place] | [phone] | | [facility] | | [address] | | | - LABORATORY | | [...] [address] | [place] | [phone] | | [facility] | | [address] | | | - LABORATORY | | [...] [facility] | | | | | | at:[phone]. | | | | + + + [...] Performed at: 01 - [facility] [address] [facility], | REFERENCE LAB | | [place], [place] [id number] Horticultural Farmworker: Sarabjit Love MD, Phone: | [facility] | | [phone] | | + + + + + + + + | Performing | Address | City/State/Zipcode | Phone Number | | Organization | | | | + + + + + | REFERENCE LAB | [address] | [place] [address] | [phone] | | [facility] | Drive [...] ST. | [address] | [place], [place] | [phone] | | [facility] | | [address] | | | - LABORATORY | | [...] | | | | | | | 1143-5043 Use NIGHT DOSE for | | | | | | | doses scheduled: HS, 3AM, | | | | | | | Nighttime 2336-7674, | | | | | | + [...]
--- OUTSIDE RECORDS SUMMARY | ~2019-08-28 | XMS | Encounter Summary ---
Demographics + + + | Address | [address] | | | [place] [address] | + + + | Home Phone | | + + + | Preferred Language | Unknown | + + + | Marital Status | Single | + + + | Buddhism Affiliation | CAT | + + + [...] Samantha Ramos | ECON | [address] # | | | | | [place] | | | | | [address] | | + + + + + Care Team Providers + +------+ + | Care Label Rewinder Name | Role | Phone | + [...] [address] | | | | | [place], [place] | [place], [place] | | | | | [address] | [address] | | | | | [phone] | [phone] | | | | | | | [...] 2019 | Encounter | | MD Harris [address] | | | | | | [place], | | | | | | [place] [address] | | | | | | [phone] | | | | | | | [...] | | | | | | [place] [address] | | | | | | [phone] | | | | | | | | +--------+ + + + + | 09/13/ | Office | Hematology & | Rodney | | | 2019 | Visit | Oncology | MD Leo Lees | | | | | | [place] | | | | | | [place] [address] | | | | | | [phone] | | | | | | | | +--------+ + + + + | 01/24/ | Office | Surgery | Neri Steven MD | | | 2019 | Visit | | [address] | | | | | | [place], | | | | | | [place] [address] | | | | | | [phone] | | | | | | | [...] | | | SERUM | performed by [facility] | | | | | | [facility] | | | | | | [facility]. | | | | + + + + + + + + | Specimen | + + | | + + + + + + + | Performing | Address | City/State/Zipcode | Phone Number | | Organization | | | | + + + + + | [facility] | [address] | [place] [address] | | | LABORATORY | | | [...] + + + + + | [facility] | [address] | [place] [address] | | | LABORATORY | | | | + + + + + documented in this encounter Visit Diagnoses Not on filedocumented in this encounter"
--- OUTSIDE RECORDS SUMMARY | ~2019-08-28 | XMS | Encounter Summary ---
Demographics + + + | Address | [address] | | | [place] [address] | + + + | Home Phone [...] | [place] | | | | | [address] | | + + + + + Care Team Providers + +------+ + | Care Flower Shop Laborer/Designer Name | Role | Phone | + [...] | 03/13/ | Telephone | [facility] | [facility] Referral | | 2019 | | GASTROENTEROLOGY | DANA [address] | | | | | [address] [place] | [place] | | | | | [address] [place], [place] | [place], [place] | | | | | [address] | [address] | | | | | [phone] | | | +--------+ + + + [...]
--- OUTSIDE RECORDS SUMMARY | ~2019-08-28 | XMS | Encounter Summary ---
Demographics + + + | Address | [address] | | | [place] [address] | + + + | Home Phone [...] Samantha Ramos | ECON | [address] # | | | | | [place], [place] | | | | | [address] | | + + + + + Care Team Providers + +------+ + | Care Test And Turn Up Technician Name | Role | Phone | [...] as of this encounter Discharge Summaries Interface, Florist Designer In - 04/08/2006 3:[address] [address] [facility] MEDICAL SUMMARY OF HOSPITALIZATION Med Rec [...] initially presented to the emergency department in [place] with four to five days of flu-like [...] insulin drip. He was transferred to the [facility] Pediatric Intensive Care Unit. HOSPITAL COURSE: [...] diabetes education from the endocrinology team. A roving hand also worked closely with the family in educating on the [employer] diets. On the day of [...] Lindsey M.D. Tereso Morocho M.D. TC:x11 cc: [id number] signed by Interface, Florist Designer In at 04/08/2006 3:[address] [facility] umented in this encounter Plan of Treatment +--------+ + + + + | Date | Type | Specialty | Care Team | Description | +--------+ + + + + | 09/03/ | Hospital | | Greg Mathis | | | 2019 | Encounter | | MD Harris [address] | | | | | | [place], | | | | | | [place] [address] | | | | | | [phone] | | | | | | | [...] | | | | | | [place] [address] | | | | | | [phone] | | | | | | | | +--------+ + + + + | 09/13/ | Office | Hematology & | Rodney, | | | 2018 | Visit | Oncology | MD Nabeel [address] | | | | | | [place] | | | | | | [place] [address] | | | | | | [phone] | | | | | | | | +--------+ + + + + | 01/24/ | Office | Surgery | Neri Steven MD | | | 2019 | Visit | | [address] | | | | | | [place], | | | | | | [place] [address] | | | | | | [phone] | | | | | | | | +--------+ + + + + documented as of this encounter Visit Diagnoses Not on filedocumented in this encounter"
--- OUTSIDE RECORDS SUMMARY | ~2019-08-28 | XMS | Encounter Summary ---
Demographics + + + | Address | [address] | | | [place] [address] | + + + | Home Phone [...] | Author | [facility] | | | and [place] | + + + | Organization | [facility] | | | and [place] | + + + | Address | Unknown | + + + | Phone | Unavailable | + + + Support + + + + + | Name | Relationship | Address | Phone | + + + + + | Gia Ramos | ECON | [address] | | | | | [place] | | | | | [address] | | + + + + + Care Team Providers + +------+ + | Care Orientation And Mobility Instructor Name | Role | Phone | [...] + + | 06/09/ | Hospital | [facility] | Dioyn Hollis, | | | 2019 - | Encounter | [facility] | [address] | | | | | CARE FLOOR [address] | [place] [address] | | | 06/10/ | | [address] | [phone] | | | 2019 | | [place], [place] | | | | | | [address] | Solomon Jonas MD [address] | | | | | [phone] | [address] | | | | | | [place] [address] | | | | | | [phone] | | | | | | | | | | | | Jannette Spears MD | | | | | | [address] | | | | | | [place] [address] | | | | | | [phone] | | | | | | | | | | | | Andrey Gatica DO | | | | | | [address] | | | | | | [address] | | | | | | [place] [address] | | | | | | [phone] | | | | | | | [...] note might be different from rolando hercules. [facility] MEDICAL HOSPITALIST TEAM Patient leave AGAINST MEDICAL ADVICE documentation Pt. Name/Age/: Brooks Marquez 28 y.o. 1990 Date of Admission: 06/09/2019 Date of leaving hospital AGAINST MEDICAL ADVICE: 2018 PCP: Erich Yates Note group underwriter provider: Solomon Jonas MD HPI/Reason for Admission:-Chest pain with elevated troponin Hospital course, including complications: 28 years old gentleman with type 1 diabetes with renal complication and gastroparesis hyper tension chronic kidney disease stage III, chronic pain on narcotics status post right BKA fo r necrotizing fasciitis October 2018 transferred to [facility] from [facility] for anup st pain and elevated troponin Associated symptoms are diarrhea ongoing for which he stated as a chronic at 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 with history of gastric ulcers He also have gastropathy which was documented in [facility] by gastric emptying study in 2003 by [...] insulin IV morphine and tra nsferred to [facility] due to elevated troponin EKG shows sinus tachycardia no acute ischemic brown e repeat troponin at [facility] was unremarkable by record Patient was admitted [...] a scheduled gastroenterology appointment in June at [facility] for p ossible gastric pacemaker acute on [...] patient and mother requesting to leave [facility] MEDICAL ADVICE before I have a chance [...] - 06/10/2019 4:55 AM PDTPt transferred from [facility]. Admitted by Dr. Ramakrishna Spears. Ewa grier called at approximated 1557 as patient was getting very agitated and [...] + + | Performing | Address | City/State/[facility] | Phone Number | | Organization | [...] | Procedure Note | + + | Chneg, Rad Results In - 06/10/2019 8:52 AM [...] Testing | 65 - 99 mg/dL | [facility] | | | POC | performed at [facility];[address] | | LABORATORY | | | | [address];[place] | | | | | | [address] | | | | + + + + + + + + | Specimen | + + | | + + + + + + + | Performing | Address | City/State/Zipcode | Phone Number | | Organization | | | | + + + + + | [facility] | [address] | [place] [address] | [phone] | + + + + + Troponin I (06/10/2019 5:58 AM PDT) + + + + + + | Component | Value | Ref Range | Performed | Pathologist | | | | | At | Signature | + + + + + + | Troponin I | <0.006Comment: 0.04 | 0.00 - 0.04 | [facility] | | | | ng/mL or [...] at | | | | | | [facility];[address] | | | | | | [place] [address] | | | | + + + + + + + + | Specimen | + + | | + + + + + + + | Performing | Address | City/State/Zipcode | Phone Number | | Organization | | | | + + + + + | [facility] | [address] | [place] [address] | [phone] | + + + + + Hemoglobin A1C (06/10/2019 5:58 AM PDT) + + + + + + | Component | Value | Ref Range | Performed | Pathologist | | | | | At | Signature | + + + + + + | Hemoglobin | 8.8 (H)Comment: HbA1c | 4.0 - 6.0 % | [facility] | | | A1c | method [...] | 206 (H)Comment: | <154 mg/dL | [facility] | | | Average | Estimated Average | | LABORATORY | | | Glucose | Glucose calculated from | | | | | | hemoglobin A1c by use of | | | | | | the ADArecommended | | | | | | formula.Testing | | | | | | performed at [facility], [address] | | | | | | [address], | | | | | | [place] [address] | | | | + + + + + + + + | Specimen | + + | Blood | + + + + + + + | Performing | Address | City/State/Zipcode | Phone Number | | Organization | | | | + + + + + | [facility] | [address] | [place] [address] | [phone] | + + + + + TSH (06/10/2019 5:58 AM PDT) + + + + + + | Component | Value | Ref Range | Performed | Pathologist | | | | | At | Signature | + + + + + + | TSH | 0.811Comment: Testing | 0.450 - 5.100 | [facility] | | | | performed at [facility];[address] | uIU/mL | LABORATORY | | | | [address];[place] | | | | | | [address] | | | | + + + + + + + + | Specimen | + + | Blood | + + + + + + + | Performing | Address | City/State/Zipcode | Phone Number | | Organization | | | | + + + + + | [facility] | [address] | [place] [address] | [phone] | + + + + + Basic [...] | | | | | | [facility] traceable | | | | | | equation.Testing | | | | | | performed at [facility];[address] | | | | | | [facility];[place], [place] | | | | | | [address] | | | | + + + + + + + + | Specimen | + + | Blood | + + + + + + + | Performing | Address | City/State/Zipcode | Phone Number | | Organization | | | | + + + + + | [facility] | [address] [facility] | [place] [address] | [phone] | + + + + + CBC [...] [facility] | | | | performed at [facility];[address] | | LABORATORY | | | | [address];[place], [place] | | | | | | [address] | | | | + + + + + + + + | Specimen | + + | Blood | + + + + + + + | Performing | Address | City/State/Zipcode | Phone Number | | Organization | | | | + + + + + | [facility] | [address] | [place] [address] | [phone] | + + + + + ECG [...] | | | POC | performed at [facility];[address] | | LABORATORY | | | | [address];[place] | | | | | | [address] | | | | + + + + + + + + | Specimen | + + | | + + + + + + + | Performing | Address | City/State/Zipcode | Phone Number | | Organization | | | | + + + + + | [facility] | [address] | [place] [address] | [phone] | + + + + + Troponin I (06/09/2019 11:38 PM PDT) + + + + + + | Component | Value | Ref Range | Performed | Pathologist | | | | | At | Signature | + + + + + + | Troponin I | <0.006Comment: 0.04 | 0.00 - 0.04 | [facility] | | | | ng/mL or [...] at | | | | | | [facility];[address] [facility] | | | | | | [facility];[place] [address] | | | | + + + + + + + + | Specimen | + + | Blood | + + + + + + + | Performing | Address | City/State/Zipcode | Phone Number | | Organization | | | | + + + + + | [facility] | [address] | [place] [address] | [phone] | + + + + + Lipid [...] | | | Calculated | performed at [facility], [address] | | LABORATORY | | | | [address], | | | | | | [place] [address] | | | | + + + + + + + + | Specimen | + + | Blood | + + + + + + + | Performing | Address | City/State/Zipcode | Phone Number | | Organization | | | | + + + + + | [facility] | [address] | [place] [address] | [phone] | + + + + + Troponin I (06/09/2019 9:05 PM PDT) + + + + + + | Component | Value | Ref Range | Performed | Pathologist | | | | | At | Signature | + + + + + + | Troponin I | 0.006Comment: 0.04 | 0.00 - 0.04 | [facility] | | | | ng/mL or [...] at | | | | | | [facility];[address] [facility] | | | | | | [facility];[place] [address] | | | | + + + + + + + + | Specimen | + + | Blood | + + + + + + + | Performing | Address | City/State/Zipcode | Phone Number | | Organization | | | | + + + + + | [facility] | [address] | [place] [address] | [phone] | + + + + + POC [...] | | | POC | performed at [facility];[address] | | LABORATORY | | | | [address];[place], [place] | | | | | | [address] | | | | + + + + + + + + | Specimen | + + | | + + + + + + + | Performing | Address | City/State/Zipcode | Phone Number | | Organization | | | | + + + + + | [facility] | [address] | [place] [address] | [phone] | + + + + + documented [...]
--- OUTSIDE RECORDS SUMMARY | ~2019-08-28 | XMS | Encounter Summary ---
Demographics + + + | Address | [address] | | | [place] [address] | + + + | Home Phone [...] | [place] | | | | | [address] | | + + + + + Care Team Providers + +------+ + | Care Vehicle Monitor Technician Name | Role | Phone | [...] [address] | | | | | [phone] | [place] [address] | | +--------+ + + + + [...]
--- OUTSIDE RECORDS SUMMARY | ~2019-08-28 | XMS | Encounter Summary ---
Demographics + + + | Address | [address] | | | [place] [address] | + + + | Home Phone | | + + + | Preferred Language | Unknown | + + + | Marital Status | Single | + + + | Moravian Affiliation | CAT | + + + [...] [place] | | | | | [address] | | + + + + + Care Team Providers + +------+ + | Care Forensic Social Worker Name | Role | Phone | + +------+ + | Erich Yates PA-C | PCP | | + +------+ + Encounter Details +--------+ + + + + | Date | Type | Department | Care Team | Description | +--------+ + + + + | 07/06/ | Transcribe | [facility] | Transcribe | | | 2019 | Orders | [facility] [address] | Encounter, Provider, | | | | | [place] Mailcode: | [address] | | | | | [facility] | [place] [address] | | | | | Health and Healing, | | | | | | [address] | | | | | | [place], [place] | | | | | | [address] | | | | | | [phone] | | | +--------+ + + + [...] 2018 | Encounter | | MD Harris [address] | | | | | | [place], | | | | | | [place] [address] | | | | | | [phone] | | | | | | | [...] | | | | | | [place] [address] | | | | | | [phone] | | | | | | | | +--------+ + + + + | 09/13/ | Office | Hematology & | Rodney, | | | 2018 | Visit | Oncology | MD Nabeel [address] | | | | | | [place], | | | | | | [place] [address] | | | | | | [phone] | | | | | | | | +--------+ + + + + | 01/24/ | Office | Surgery | Neri Steven MD | | | 2019 | Visit | | [address] | | | | | | [place], | | | | | | [place] [address] | | | | | | [phone] | | | | | | | [...]
--- OUTSIDE RECORDS SUMMARY | ~2019-08-28 | XMS | Encounter Summary ---
Demographics + + + | Address | [address] | | | [place] [address] | + + + | Home Phone [...] Samantha Ramos | ECON | [address] | | | | | [place] | | | | | [address] | | + + + + + Care Team Providers + +------+ + | Care Seo Professional Name | Role | Phone | [...] [address] | | | | | [place], [place] | [place] | | | | | [address] | [address] | | | | | [phone] | [phone] | | | | | | | [...] 2019 | Encounter | | MD Harris [address] | | | | | | [place], | | | | | | [place] [address] | | | | | | [phone] | | | | | | | [...] | | | | | | [place] [address] | | | | | | [phone] | | | | | | | | +--------+ + + + + | 09/13/ | Office | Hematology & | Rodney | | | 2019 | Visit | Oncology | MD Leo Lees | | | | | | [place] | | | | | | [place] [address] | | | | | | [phone] | | | | | | | | +--------+ + + + + | 01/24/ | Office | Surgery | Neri Steven MD | | | 2020 | Visit | | [address] | | | | | | [place], | | | | | | [place] [address] | | | | | | [phone] | | | | | | | [...] | | | | | URINE-CARLOS | [facility] | | | | | M [...] + + + | [facility] | [address] | [place] [address] | | | LABORATORY | | | | + + + + + documented in this encounter Visit Diagnoses Not on filedocumented in this encounter"
--- OUTSIDE RECORDS SUMMARY | ~2019-08-28 | XMS | Encounter Summary ---
Demographics + + + | Address | [address] | | | [place] [address] | + + + | Home Phone [...] Gia Ramos | ECON | [address] | | | | | [place] | | | | | [address] | | + + + + + Care Team Providers + +------+ + | Care Campaign Director Name | Role | Phone | [...] + + | 06/22/ | Telephone | [facility] | Winston Whitman MD | Other (Appointment | | 2019 | | NEPHROLOGY [place] | [address] | reminder call) | | | | [address] | [facility] [place] | | | | | [address] [place], [place] | [id number] | | | | | [address] | | | | | | [phone] | | | +--------+ + + + [...]
--- OUTSIDE RECORDS SUMMARY | ~2019-08-28 | XMS | Encounter Summary ---
Demographics + + + | Address | [address] | | | [place] [address] | + + + | Home Phone | | + + + | Preferred Language | Unknown | + + + | Marital Status | Single | + + + | Restoration Affiliation | Unknown | + + + | Race | Unknown | + + + | Ethnic Group | Unknown | + + + Author + + + | Author | [facility] | | | and [place] | + + + | Organization | [facility] | | | and [place] | + + + | Address | Unknown | + + + | Phone | Unavailable | + + + Support + + + + + | Name | Relationship | Address | Phone | + + + + + | Gia Ramos | ECON | [address] | | | | | [place] | | | | | [address] | | + + + + + Care Team Providers + +------+ + | Care Supervisor Esters And Emulsifiers Name | Role | Phone | + [...] | 09/19/ | Anesthesia | [facility] | Tereso Dillon, | | | 2017 | Event | MED [facility] INTRA OP | MD [address] | | | | | [address] | [place] | | | | | [place] | [address] | | | | | [address] | | | | | | [phone] | | | +--------+ + + + [...] +----+---+ + + | | 2 | [place] | | | | 0 | 43-degrees | | | | 4 | | | | | 8 | | | +----+---+ + + | | 2 | First | | | | 0 | Inc/Proc St | | | | 5 | | | | | 4 | | | +----+---+ + + | | 2 | [place] off | | | | 1 | [...] - 09/19/2018 8:55 PM PST Anesthesia Airway Mtbojzcpo62/25/2018 | | 20:40Preprocedure check: patient identified, suction, [...]
--- OUTSIDE RECORDS SUMMARY | ~2019-08-28 | XMS | Encounter Summary ---
Demographics + + + | Address | [address] | | | [place] [address] | + + + | Home Phone [...] Samantha Ramos | ECON | [address] | | | | | [place] | | | | | [address] | | + + + + + Care Team Providers + +------+ + | Care General Supervisor Name | Role | Phone | [...] | | | | Mailcode: PV430 | [place], [place] | | | | | [facility] | [address] | | | | | [place], [place] | [phone] | | | | | [address] | | | | | | [phone] | | | +--------+ + + + [...] 2019 | Encounter | | MD Harris [address] | | | | | | [place] | | | | | | [place] [address] | | | | | | [phone] | | | | | | | [...] | | | | | | [place] [address] | | | | | | [phone] | | | | | | | | +--------+ + + + + | 09/13/ | Office | Hematology & | Rodney | | | 2019 | Visit | Oncology | MD Leo Lees | | | | | | [place] | | | | | | [place] [address] | | | | | | [phone] | | | | | | | | +--------+ + + + + | 01/24/ | Office | Surgery | Neri Steven MD | | | 2020 | Visit | | [address] | | | | | | [place], | | | | | | [place] [address] | | | | | | [phone] | | | | | | | [...]
--- OUTSIDE RECORDS SUMMARY | ~2019-08-28 | XMS | Encounter Summary ---
Demographics + + + | Address | [address] | | | [place] [address] | + + + | Home Phone [...] [place] | | | | | [address] | | + + + + + Care Team Providers + +------+ + | Care Photographic Machine Operator Name | Role | Phone [...] | | complication | [place], | [place] [address] | | | | | s ([facility]) | [place] [address] | Phone: | | | | | Unspecified | Phone: | [phone] | | | | | abdominal | [phone] | Fax: | | | | | pain | Fax: | [phone] | | | | | Functional | [phone] | | | | | | intestinal [...] | [address] [place] | [place], [place] [address] | (Primary Dx); Weight | | | | [address] [place], [place] | [place], [place] | loss; Malnutrition, | | | | [address] | [address] | unspecified type | | | | [phone] | | ([facility]); 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 male referred by VIKI Anadn for evaluation and saji tment of abdominal [...] STENT PLACEMENT; Surgeon: Tc Mora MD; Location: [facility] MAIN [place] Family History Problem [...] 0 0 - 4 Final UA Specific [place], External 01/21/2019 1.016 1.005 - 1.03 Final [...] 3 (moderate) (HCC) Plan: Urgent referral to [facility] gastro enterology. Patient significantly malnourished [...]
--- OUTSIDE RECORDS SUMMARY | ~2019-08-28 | XMS | Encounter Summary ---
Demographics + + + | Address | [address] | | | [place] [address] | + + + | Home Phone [...] Samantha Ramos | ECON | [address] # | | | | | [place] | | | | | [address] | | + + + + + Care Team Providers + +------+ + | Care Hydro Plant Technician Name | Role | Phone | [...] Operative Report | | 2006 | | [facility] [address] | | | | | Transcribed | [address] | | | | | | Mailcode: Center | | | | | | for [facility] and | | | | | | Healing, [address] | | | | | | [facility] [place] | | | | | | [address] | | | | | | [phone] | | | +--------+ + + + [...] 2019 | Encounter | | MD Harris [address] | | | | | | [place] | | | | | | [place] [address] | | | | | | [phone] | | | | | | | [...] | | | | | | [place] [address] | | | | | | [phone] | | | | | | | | +--------+ + + + + | 09/13/ | Office | Hematology & | Rodney | | | 2018 | Visit | Oncology | MD Leo Lees | | | | | | [place], | | | | | | [place] [address] | | | | | | [phone] | | | | | | | | +--------+ + + + + | 01/24/ | Office | Surgery | Neri Steven MD | | | 2019 | Visit | | [address] | | | | | | [place], | | | | | | [place] [address] | | | | | | [phone] | | | | | | | [...] | 10/13/2006 12:00 AM PST | | [id number] | | [id number] NAHOMY GROSSMAN [place] [id number] | | | | Date: 10/13/2006 | | | | Attending Surgeon: Neri Mcgarry M.D., Ph.D. | | | | Health Education Director(s): Stefano Clements M.D. | | | [...] Mcgarry M.D., Ph.D. | | | | [facility] / | | [id number] / [id number] / [id number] / [id number] | | | | | | | | | | | | Electronically signed by Neri Mcgarry 10-24-2006 04:46:26 PM | | | | | + + documented in this encounter Visit Diagnoses Not on filedocumented in this encounter"
--- OUTSIDE RECORDS SUMMARY | ~2019-08-28 | XMS | Encounter Summary ---
Demographics + + + | Address | [address] | | | [place] [address] | + + + | Home Phone [...] Samantha Ramos | ECON | [address] # | | | | | [place], [place] | | | | | [address] | | + + + + + Care Team Providers + +------+ + | Care Well Driller Helper Name | Role | Phone | [...] Rd | | | | | | [place], [place] | | | | | | [address] | | | | | | [phone] | | | | | | | [...] 2018 | Encounter | | MD Harris [address] | | | | | | [place], | | | | | | [place] [address] | | | | | | [phone] | | | | | | | | +--------+ + + + + | 09/03/ | Appointment | Procedural Care Unit | | | | 2018 | | | | | +--------+ + + + + | 09/03/ | Appointment | Gastroenterology | Greg Mathis | | | 2018 | | | MD Harris [address] | | | | | | [place], | | | | | | [place] [address] | | | | | | [phone] | | | | | | | | +--------+ + + + + | 09/13/ | Office | Hematology & | Rodney, | | | 2018 | Visit | Oncology | MD Nabeel [address] | | | | | | [place], | | | | | | [place] [address] | | | | | | [phone] | | | | | | | | +--------+ + + + + | 01/24/ | Office | Surgery | Neri Steven MD | | | 2019 | Visit | | [address] | | | | | | [place], | | | | | | [place] [address] | | | | | | [phone] | | | | | | | [...] | + + + + + | [facility] DEPARTMENT OF | [address] [place] [address] [address] | [place] [address] | | | PATHOLOGY | [address] | | | + + + + + | [facility] DEPARTMENT OF | [address] [address] | [place] [address] | | | PATHOLOGY | [address] [...] | + + + + + | [facility] DEPARTMENT OF | [address] [facility] | [place] [address] | | | PATHOLOGY | [address] | | | + + + + + | [facility] DEPARTMENT OF | [address] [facility] | [place] [address] | | | PATHOLOGY | [address] [...] | + + + + + | [facility] | [address] [facility] | [place] [address] | | | PATHOLOGY | [address] | | | + + + + + | [facility] DEPARTMENT | [address] [facility] | [place] [address] | | | PATHOLOGY | [address] [...] | + + + + + | [facility] DEPARTMENT OF | [address] | [place] [address] | | | PATHOLOGY | [address] | | | + + + + + | [facility] DEPARTMENT OF | [address] | [place] [address] | | | PATHOLOGY | [address] | | | + + + + + GLUCOSE, WHOLE BLOOD (12/03/2002 6:00 AM PST) + +---------+ + + + | Component | Value | Ref Range | Performed | Pathologist | | | | | At | Signature | + +---------+ + + + | GLUCOSE,WHO | 216 (H) | 65 - 110 mg/dL | [facility] | | | LE BLOOD | | [...] | + + + + + | [facility] | [address] [facility] | [place] [address] | | | PATHOLOGY | [address] | | | + + + + + | [facility] | [facility] [facility] | [place] [address] | | | PATHOLOGY | [address] [...] Performed At | + + + | [id number] CALCIUM Checked and phoned. | [facility] | | | DEPARTMENT OF | | | PATHOLOGY | + + + + + + + + | Performing | Address | City/State/Zipcode | Phone Number | | Organization | | | | + + + + + | [place] DEPARTMENT OF | [address] [facility] | [place] [address] | | | PATHOLOGY | [address] | | | + + + + + | [facility] DEPARTMENT OF | [facility] | [facility] [place] [address] | | | PATHOLOGY | [address] | | | + + + + + CHEMISTRY MASTER PANEL (12/03/2002 6:00 AM PST) + + | Specimen | + + | | + + + + + | Narrative | Performed At | + + + | [id number] CALCIUM Checked and phoned. | [facility] | | | DEPARTMENT OF | | | PATHOLOGY | + + + + + + + + | Performing | Address | City/State/Zipcode | Phone Number | | Organization | | | | + + + + + | [facility] DEPARTMENT | [address] [facility] | [place] [address] | | | PATHOLOGY | [address] | | | + + + + + | [facility] | [facility] | [place] [address] | | | PATHOLOGY | [address] [...] | + + + + + | [facility] DEPARTMENT OF | [address] [facility] | [place] [address] | | | PATHOLOGY | [address] | | | + + + + + | [facility] DEPARTMENT OF | [address] [facility] | [place] [address] | | | PATHOLOGY | [address] [...] | + + + + + | [facility] | [address] [facility] | [place] [address] | | | PATHOLOGY | [address] | | | + + + + + | [facility] | [address] [facility] | [place] [address] | | | PATHOLOGY | [address] [...] | + + + + + | [facility] DEPARTMENT OF | [address] [facility] | [place] [address] | | | PATHOLOGY | [address] | | | + + + + + | [place] DEPARTMENT OF | [address] [facility] | [place] [address] | | | PATHOLOGY | [address] [...] + + | [facility] DEPARTMENT OF | [address] | [place] [address] | | | PATHOLOGY | [address] | | | + + + + + | [facility] | [address] | [place] [address] | | | PATHOLOGY | [address] [...] | | | | | | [facility] | | | | | | Laboratories. | | | | + + + + + + + + | Specimen | + + | | + + + + + + + | Performing | Address | City/State/Zipcode | Phone Number | | Organization | | | | + + + + + | [facility] | [address] | [place] [address] | | | LABORATORY | | | [...] | + + + + + | [facility] DEPARTMENT OF | [address] [facility] | [place] [address] | | | PATHOLOGY | [address] | | | + + + + + | [facility] DEPARTMENT OF | [address] [facility] | [place] [address] | | | PATHOLOGY | [address] [...] Performed At | + + + | [id number] Checked and phoned. CO2 [id number] Checked and phoned. | [facility] | | | DEPARTMENT OF | | | PATHOLOGY | + + + + + + + + | Performing | Address | City/State/Zipcode | Phone Number | | Organization | | | | + + + + + | [facility] | [address] | [place] [address] | | | PATHOLOGY | [address] | | | + + + + + | [facility] | [facility] [address] | [place] [address] | | | PATHOLOGY | [address] [...] Performed At | + + + | [phone] Checked and phoned. CO2 [id number] Checked and phoned. | [facility] | | | DEPARTMENT OF | | | PATHOLOGY | + + + + + + + + | Performing | Address | City/State/Zipcode | Phone Number | | Organization | | | | + + + + + | [facility] DEPARTMENT OF | [facility] | [place] [address] | | | PATHOLOGY | [address] | | | + + + + + | [place] DEPARTMENT OF | [facility] | [place] [address] | | | PATHOLOGY | [address] [...] Performed At | + + + | [id number] Checked and phoned. CO2 [id number] Checked and phoned. | [facility] | | | DEPARTMENT OF | | | PATHOLOGY | + + + + + + + + | Performing | Address | City/State/Zipcode | Phone Number | | Organization | | | | + + + + + | [facility] DEPARTMENT OF | [address] [facility] | [place] [address] | | | PATHOLOGY | [address] | | | + + + + + | [facility] DEPARTMENT OF | [address] [facility] | [place] [address] | | | PATHOLOGY | [address] | | | + + + + + CHEMISTRY MASTER PANEL (12/02/2002 6:45 PM PST) + + | Specimen | + + | | + + + + + | Narrative | Performed At | + + + | [id number] Checked and phoned. CO2 [id number] Checked and phoned. | [facility] | | | DEPARTMENT OF | | | PATHOLOGY | + + + + + + + + | Performing | Address | City/State/Zipcode | Phone Number | | Organization | | | | + + + + + | [facility] | [address] | [place] [address] | | | PATHOLOGY | [address] | | | + + + + + | [facility] | [address] | [place] [address] | | | PATHOLOGY | [address] | | | + + + + + documented in this encounter Visit Diagnoses Not on filedocumented in this encounter"
--- OUTSIDE RECORDS SUMMARY | ~2019-08-28 | XMS | Encounter Summary ---
Demographics + + + | Address | [address] | | | [place] [address] | + + + | Home Phone [...] Samantha Ramos | ECON | [address] # | | | | | [place], [place] | | | | | [address] | | + + + + + Care Team Providers + +------+ + | Care Sandwich Counter Attendant Name | Role | Phone | [...] as of this encounter Discharge Summaries Interface, Microsoft Exchange Administrator In - 04/08/2006 3:[address] [address] [facility] MEDICAL SUMMARY OF HOSPITALIZATION Med [...] initially presented to the emergency department in [place] with four to five days of flu-like [...] insulin drip. He was transferred to the [facility] Pediatric Intensive Care Unit. HOSPITAL COURSE: [...] diabetes education from the endocrinology team. A auto leasing manager also worked closely with the family in educating on the [employer] diets. On the day of [...] Lindsey M.D. Tereso Morocho M.D. TC:x11 cc: [id number] signed by Interface, Microsoft Exchange Administrator In at 04/08/2006 3:07 AM [facility] umented in this encounter Plan of Treatment +--------+ + + + + | Date | Type | Specialty | Care Team | Description | +--------+ + + + + | 09/03/ | Hospital | | Greg Mathis | | | 2019 | Encounter | | MD [address] | | | | | | [place], | | | | | | [place] [address] | | | | | | [phone] | | | | | | | [...] | | | | | | [place] [address] | | | | | | [phone] | | | | | | | | +--------+ + + + + | 09/13/ | Office | Hematology & | Rodney, | | | 2018 | Visit | Oncology | MD Nabeel [address] | | | | | | [place] | | | | | | [place] [address] | | | | | | [phone] | | | | | | | | +--------+ + + + + | 01/24/ | Office | Surgery | Neri Steven MD | | | 2019 | Visit | | [address] | | | | | | [place], | | | | | | [place] [address] | | | | | | [phone] | | | | | | | | +--------+ + + + + documented as of this encounter Visit Diagnoses Not on filedocumented in this encounter"
--- OUTSIDE RECORDS SUMMARY | ~2019-08-28 | XMS | Encounter Summary ---
Demographics + + + | Address | [address] | | | [place] [address] | + + + | Home Phone [...] Samantha Ramos | ECON | [address] # | | | | | [place] | | | | | [address] | | + + + + + Care Team Providers + +------+ + | Care A/C Tech Name | Role | Phone | [...] | Anemia, | Lashawn Tan, | [address] | | | | | unspecified | [address] | [address] | | | | | type | [address] | Mailcode: | | | | | Procedures | [facility] | [facility] | | | | | CONSULT TO | Rd | Health and | | | | | HEMATOLOGY / | [place], [place] | Healing, | | | | | ONCOLOGY | [address] | [address] | | | | | | Phone: | [place], [place] | | | | | | [phone] | [address] | | | | | | Fax: | Phone: | | | | | | [phone] | [phone] | | | | | | | Fax: | | | | | | | [phone] | + +---------+ + + + + [...] | Diabetic | Lashawn Tan, | [address] | | | | | gastroparesi | PA-C [address] | | | | | s (HCC) | [address] | Mailcode: | | | | | Abdominal | [facility] | [address] | | | | | pain, | Rd | for Health | | | | | chronic, | [place], [place] | and Healing, | | | | | epigastric | [address] | [address] | | | | | Chronic | Phone: | [place], [place] | | | | | diarrhea | [phone] | [address] | | | | | Severe | Fax: | Phone: | | | | | protein-judy | [phone] | [phone] | | | | | danyel | | Fax: | | | | | malnutrition | | [phone] | | | | | (HCC) | [...] Care Coordination | | 2019 | | Vian at [facility] [address] | PA-C [address] | (Local provider, | | | | [address] | [address] | local labs) | | | | Mailcode: Vian | [place], [place] | | | | | [facility] and | [address] | | | | | [facility] 2 | [phone] | | | | | [place], [place] | | | | | | [address] | | | | | | [phone] | | | +--------+ + + + [...] | | | | | | [place] [address] | | | | | | [phone] | | | | | | | [...] | | | | | | [place] [address] | | | | | | [phone] | | | | | | | | +--------+ + + + + | 09/13/ | Office | Hematology & | Rodney, | | | 2018 | Visit | Oncology | MD Leo Lees | | | | | | [place] | | | | | | [place] [address] | | | | | | [phone] | | | | | | | | +--------+ + + + + | 01/24/ | Office | Surgery | Neri Steven MD | | | 2019 | Visit | | [address] | | | | | | [place], | | | | | | [place] [address] | | | | | | [phone] | | | | | | | [...]
--- OUTSIDE RECORDS SUMMARY | ~2019-08-28 | XMS | Encounter Summary ---
Demographics + + + | Address | [address] | | | [place] [address] | + + + | Home Phone [...] Gia Ramos | ECON | [address] | | | | | [place] | | | | | [address] | | + + + + + Care Team Providers + +------+ + | Care Sandwich Hand Name | Role | Phone | [...] + | 09/19/ | Hospital | [facility] | Tc Mora | Right ureteral | | 2018 - | Encounter | MED [facility] SUR[facility] | MD Boyd [address] | stone; Acute kidney | | | | [address] | [place], [place] | injury (HCC); Flank | | 09/20/ | | [place] [address] | [address] | pain; | | 2018 | | [phone] | | Hydronephrosis, | | | | [...] might be differ ent from the original. [facility] Urology Progress Note Brooks Marquez is [...] + | [facility] | [address] | [place] | [phone] | | [facility] | | [address] | | | - LABORATORY | | [...] | | | | | mmol/L | [facility] | | | | | | MEDICAL | | | | | | CENTER - | | | | | | LABORATORY | | + + + + + + | K | 5.7 (H) | 3.5 - 5.1 | [facility] | | | | | mmol/L | [facility] | | | | | [...] | | MEDICAL | | | | mL/min/1.77b4Knnb than | | CENTER - | | [...] [address] | [place] | [phone] | | [facility] | | [address] | | | - LABORATORY | | [...] [address] | [place] | [phone] | | [facility] | | [address] | | | - LABORATORY | | [...] this test. These results should be | [facility] | | integrated into the clinical context for interpretation. | [facility] | | | - LABORATORY | + + + + + + + + | Performing | Address | City/State/Zipcode | Phone Number | | Organization | | | | + + + + + | [facility] | [address] | [place], [place] | [phone] | | [facility] | | [address] | | | - LABORATORY | | [...] [address] | [place] | [phone] | | [facility] | | [address] | | | - LABORATORY | | | | + + + + + Urinalysis with Microscopic with Culture if Indicated (09/20/2018 10:26 AM PST) + + + + + + | Component | Value | Ref Range | Performed | Pathologist | | | | | At | Signature | + + + + + + | Color | Shatne (A) | Light Yellow, | [facility] | [...] - 1.030 | [facility] | | | [place] | | | [facility] | | [...] ST. | [address] | [place], [place] | [phone] | | [facility] | | [address] | | | - LABORATORY | | [...] + | [facility] | [address] | [place] | [phone] | | [facility] | | [address] | | | - LABORATORY | | [...] [address] | [place] | [phone] | | [facility] | | [address] | | | - LABORATORY | | [...] [address] | [place] | [phone] | | [facility] | | [address] | | | - LABORATORY | | [...] [address] | [place] | [phone] | | [facility] | | [address] | | | - LABORATORY | | [...] 2.07 (H) | 0.60 - 1.30 | [facility] | | | | | [...] | | MEDICAL | | | | mL/min/1.65s1Eogm than | | CENTER - | | [...] + | [facility] | [address] | [place] | [phone] | | [facility] | | [address] | | | - LABORATORY | | [...] [address] | [place] | [phone] | | [facility] | | [address] | | | - LABORATORY | | [...] MD | | | | | | (16254) on 09/21/2018 | | | | | [...] [address] | [place] | [phone] | | [facility] | | [address] | | | - LABORATORY | | [...] [address] | [place] | [phone] | | [facility] | | [address] | | | - LABORATORY | | [...] | | MEDICAL | | | | mL/min/1.84q2Owjl than | | CENTER - | | [...] [address] | [place] | [phone] | | [facility] | | [address] | | | - LABORATORY | | [...] [address] | [place] | [phone] | | [facility] | | [address] | | | - LABORATORY | | [...] mL/min/1.73m2 | [facility] [address] | | | MALIAN | RATE,ESTIMATED | | MEDICAL | | | | mL/min/1.78p5Biaw than | | CENTER - | | [...] ST. | [address] | [place] | [phone] | | [facility] | | [address] | | | - LABORATORY | | [...] [address] | [place] | [phone] | | [facility] | | [address] | | | - LABORATORY | | [...] [facility] | | | | | | at:[phone]. | | | | + + + [...] Performed at: 01 - [facility] [address] [facility], | REFERENCE LAB | | [place], [place] [address] Health Promotion Manager: Sarabjit Love MD, Phone: | [facility] | | [phone] | | + + + + + + + + | Performing | Address | City/State/Zipcode | Phone Number | | Organization | | | | + + + + + | REFERENCE LAB | [address] | [place] [address] | [phone] | | [facility] | Drive [...] ST. | [address] | [place], [place] | [phone] | | [facility] | | [address] | | | - LABORATORY | | [...] | | | | | | | 9872-7423 Use NIGHT DOSE for | | | | | | | doses scheduled: HS, 3AM, | | | | | | | Nighttime 4313-0407, | | | | | | + [...]
--- OUTSIDE RECORDS SUMMARY | ~2019-08-28 | XMS | Encounter Summary ---
Demographics + + + | Address | [address] | | | [place] [address] | + + + | Home Phone [...] Samantha Ramos | ECON | [address] # | | | | | [place] | | | | | [address] | | + + + + + Care Team Providers + +------+ + | Care Electric Meter Technician Name | Role | Phone | [...] 2005 | Only | [address] | [phone] | | | | | Rd Mailcode: RPB07 | | | | | | [place], [place] | | | | | | [address] | | | | | | [phone] | | | +--------+ + + + [...] 2019 | Encounter | | MD Harris [address] | | | | | | [place], | | | | | | [place] [address] | | | | | | [phone] | | | | | | | [...] | | | | | | [place] [address] | | | | | | [phone] | | | | | | | | +--------+ + + + + | 09/13/ | Office | Hematology & | Rodney, | | | 2019 | Visit | Oncology | MD Leo Lees | | | | | | [place] | | | | | | [place] [address] | | | | | | [phone] | | | | | | | | +--------+ + + + + | 01/24/ | Office | Surgery | Neri Steven MD | | | 2019 | Visit | | [address] | | | | | | [place], | | | | | | [place] [address] | | | | | | [phone] | | | | | | | [...]
--- OUTSIDE RECORDS SUMMARY | ~2019-08-28 | XMS | Encounter Summary ---
Demographics + + + | Address | [address] | | | [place] [address] | + + + | Home Phone | | + + + | Preferred Language | Unknown | + + + | Marital Status | Single | + + + | Christian Affiliation | CAT | + + + [...] Samantha Ramos | ECON | [address] # | | | | | [place] | | | | | [address] | | + + + + + Care Team Providers + +------+ + | Care Hospitality Internship Name | Role | Phone | [...] | | | | | gastroparesi | [address] [facility] | | | | | | s associated | [address] | | | | | | with type [address] | Rd | | | | | | diabetes | [place], [place] | | | | | | mellitus | [address] | | | | | | (HCC) | Phone: | | | | | | Procedures | [phone] | | | | | | [place] GASTRIC | Fax: | | | | | | EMPTYING | [phone] | | | | | | STUDY [...] | | | | | diabetes | [place], [place] | [facility] | | | | | mellitus | [address] | [place] | | | | | ([facility]) | Phone: | [address] | | | | | Procedures | [phone] | [place], | | | | | CONSULT TO | Fax: | [place] [address] | | | | | GI PROCEDURE | [phone] | Phone: | | | | | UNIT: EGD | | [phone] | | | | | | | Fax: | | | | | | | [phone] | + +--------+ + + + + Encounter Details +--------+ + + + + | Date | Type | Department | Care Team | Description | +--------+ + + + + | 07/04/ | Sanding Machine Operator | Digestive Health | Neri Steven MD | Diabetic | | 2019 | | Center at [facility] [address] | [address] | gastroparesis | | | | [address] | [place], | associated with type | | | | Mailcode: Center | [place] [address] | 1 diabetes mellitus | | | | for Health and | [phone] | ([facility]) (Primary Dx) | | | | Healing, [address] | | | | | | [place], [place] | | | | | | [address] | | | | | | [phone] | | | +--------+ + + + [...] 2018 | Encounter | | MD Harris [address] | | | | | | [place], | | | | | | [place] [address] | | | | | | [phone] | | | | | | | [...] | | | | | | [place] [address] | | | | | | [phone] | | | | | | | | +--------+ + + + + | 09/13/ | Office | Hematology & | Rodney, | | | 2018 | Visit | Oncology | MD Nabeel [address] | | | | | | [place], | | | | | | [place] [address] | | | | | | [phone] | | | | | | | | +--------+ + + + + | 01/24/ | Office | Surgery | Neri Steven MD | | | 2019 | Visit | | [address] | | | | | | [place], | | | | | | [place] [address] | | | | | | [phone] | | | | | | | [...]
--- OUTSIDE RECORDS SUMMARY | ~2019-08-28 | XMS | Encounter Summary ---
Demographics + + + | Address | [address] | | | [place] [address] | + + + | Home Phone [...] Samantha Ramos | ECON | [address] # | | | | | [place], [place] | | | | | [address] | | + + + + + Care Team Providers + +------+ + | Care Classroom Aide Name | Role | Phone | [...] as of this encounter Discharge Summaries Interface, Interlibrary Loan Specialist In - 04/08/2006 3:[address] [address] [facility] MEDICAL SUMMARY OF HOSPITALIZATION Med Rec No: [...] initially presented to the emergency department in [place] with four to five days of flu-like [...] insulin drip. He was transferred to the [facility] Pediatric Intensive Care Unit. HOSPITAL COURSE: The patient was admitted to the PICU and was continued on insulin drip and IV fluids. On hospital day two, CBG with pH of 7.2, bicarbonate 14, which then increased to 21. The patient was switched to subcutaneous insulin and transferred to the general weinstein. The patient and family received diabetes education from the endocrinology team. A retail cashier associate also worked closely with the family in educating on the [employer] diets. On the day of [...] Lindsey M.D. Tereso Morocho M.D. TC:[id number] cc: [id number] signed by Interface, Interlibrary Loan Specialist In at 04/08/2006 3:07 AM [facility] umented in this encounter Plan of Treatment +--------+ + + + + | Date | Type | Specialty | Care Team | Description | +--------+ + + + + | 09/03/ | Hospital | | Greg Mathis | | | 2019 | Encounter | | MD [address] | | | | | | [place], | | | | | | [place] [address] | | | | | | [phone] | | | | | | | [...] | | | | | | [place] [address] | | | | | | [phone] | | | | | | | | +--------+ + + + + | 09/13/ | Office | Hematology & | Rodney, | | | 2018 | Visit | Oncology | MD Nabeel [address] | | | | | | [place] | | | | | | [place] [address] | | | | | | [phone] | | | | | | | | +--------+ + + + + | 01/24/ | Office | Surgery | Neri Steven MD | | | 2019 | Visit | | [address] | | | | | | [place], | | | | | | [place] [address] | | | | | | [phone] | | | | | | | | +--------+ + + + + documented as of this encounter Visit Diagnoses Not on filedocumented in this encounter"
--- OUTSIDE RECORDS SUMMARY | ~2019-08-28 | XMS | Encounter Summary ---
Demographics + + + | Address | [address] | | | [place] [address] | + + + | Home Phone [...] Samantha Ramos | ECON | [address] # | | | | | [place] | | | | | [address] | | + + + + + Care Team Providers + +------+ + | Care Laser Set Up Operator Name | Role | [...] | 2019 | | Center at [facility] [address] | [address] | Review | | | | [address] gNuyen | [address] | | | | | Mailcode: Center | [place], [place] | | | | | [facility] and | [address] | | | | | [facility] 2 | [phone] | | | | | [place], [place] | | | | | | [address] | | | | | | [phone] | | | +--------+ + + + [...] 2019 | Encounter | | MD Harris [address] | | | | | | [place] | | | | | | [place] [address] | | | | | | [phone] | | | | | | | [...] | | | | | | [place] [address] | | | | | | [phone] | | | | | | | | +--------+ + + + + | 09/13/ | Office | Hematology & | Rodney | | | 2018 | Visit | Oncology | MD Nabeel [address] | | | | | | [place] | | | | | | [place] [address] | | | | | | [phone] | | | | | | | | +--------+ + + + + | 01/24/ | Office | Surgery | Neri Steven MD | | | 2020 | Visit | | [address] | | | | | | [place], | | | | | | [place] [address] | | | | | | [phone] | | | | | | | | +--------+ + + + + documented as of this encounter Visit Diagnoses Not on filedocumented in this encounter"
--- OUTSIDE RECORDS SUMMARY | ~2019-08-28 | XMS | Encounter Summary ---
Demographics + + + | Address | [address] | | | [place] [address] | + + + | Home Phone | | + + + | Preferred Language | Unknown | + + + | Marital Status | Single | + + + | Islam Affiliation | CAT | + + + [...] Samantha Ramos | ECON | [address] # | | | | | [place] | | | | | [address] | | + + + + + Care Team Providers + +------+ + | Care Fibre Composite Technician Name | Role | Phone | [...] | | 2019 | | Center at [facility] [address] | [address] | Review | | | | [address] Nguyen | [address] | | | | | Mailcode: Center | [place], [place] | | | | | [facility] and | [address] | | | | | [facility] 2 | [phone] | | | | | [place], [place] | | | | | | [address] | | | | | | [phone] | | | +--------+ + + + [...] 2019 | Encounter | | MD Harris [address] | | | | | | [place] | | | | | | [place] [address] | | | | | | [phone] | | | | | | | [...] | | | | | | [place] [address] | | | | | | [phone] | | | | | | | | +--------+ + + + + | 09/13/ | Office | Hematology & | Rodney | | | 2018 | Visit | Oncology | MD Nabeel [address] | | | | | | [place] | | | | | | [place] [address] | | | | | | [phone] | | | | | | | | +--------+ + + + + | 01/24/ | Office | Surgery | Neri Steven MD | | | 2020 | Visit | | [address] | | | | | | [place], | | | | | | [place] [address] | | | | | | [phone] | | | | | | | | +--------+ + + + + documented as of this encounter Visit Diagnoses Not on filedocumented in this encounter"
--- OUTSIDE RECORDS SUMMARY | ~2019-08-28 | XMS | Encounter Summary ---
Demographics + + + | Address | [address] | | | [place] [address] | + + + | Home Phone [...] | [place] | | | | | [address] | | + + + + + Care Team Providers + +------+ + | Care Grips Name | Role | Phone | + [...] [address] | | | | | [phone] | [place] [address] | | +--------+ + + + + [...]
--- OUTSIDE RECORDS SUMMARY | ~2019-08-28 | XMS | Encounter Summary ---
Demographics + + + | Address | [address] | | | [place] [address] | + + + | Home Phone [...] Samantha Ramos | ECON | [address] # | | | | | [place] | | | | | [address] | | + + + + + Care Team Providers + +------+ + | Care Aircraft Quality Control Inspector Name | Role | Phone | [...] Only | PPV [address] | PATIENT MONITOR [address] | | | | | [address] | [address] | | | | | Mailcode: PV430 | [place] [address] | | | | | [facility] | [phone] | | | | | [place], [place] | | | | | | [address] | | | | | | [phone] | | | +--------+ + + + [...] 2019 | Encounter | | MD Harris [address] | | | | | | [place] | | | | | | [place] [address] | | | | | | [phone] | | | | | | | [...] | | | | | | [place] [address] | | | | | | [phone] | | | | | | | | +--------+ + + + + | 09/13/ | Office | Hematology & | Rodney | | | 2019 | Visit | Oncology | MD Leo Lees | | | | | | [place] | | | | | | [place] [address] | | | | | | [phone] | | | | | | | | +--------+ + + + + | 01/24/ | Office | Surgery | Neri Steven MD | | | 2019 | Visit | | [address] | | | | | | [place], | | | | | | [place] [address] | | | | | | [phone] | | | | | | | [...]
--- OUTSIDE RECORDS SUMMARY | ~2019-08-28 | XMS | Encounter Summary ---
Demographics + + + | Address | [address] | | | [place] [address] | + + + | Home Phone [...] Samantha Ramos | ECON | [address] # | | | | | [place] | | | | | [address] | | + + + + + Care Team Providers + +------+ + | Care Beverage Sales Consultant Name | Role | Phone [...] | Anemia, | Lashawn Tan, | [address] | | | | | unspecified | [address] | [address] | | | | | type | [address] | Mailcode: | | | | | Procedures | [facility] | [facility] | | | | | CONSULT TO | Rd | Health and | | | | | HEMATOLOGY / | [place], [place] | Healing, | | | | | ONCOLOGY | [address] | [address] | | | | | | Phone: | [place], [place] | | | | | | [phone] | [address] | | | | | | Fax: | Phone: | | | | | | [phone] | [phone] | | | | | | | Fax: | | | | | | | [phone] | + +---------+ + + + + [...] | Diabetic | Lashawn Tan, | [address] | | | | | gastroparesi | PA-C [address] | | | | | s (HCC) | [address] | Mailcode: | | | | | Abdominal | [facility] | [address] | | | | | pain, | Rd | for Health | | | | | chronic, | [place], [place] | and Healing, | | | | | epigastric | [address] | [address] | | | | | Chronic | Phone: | [place], [place] | | | | | diarrhea | [phone] | [address] | | | | | Severe | Fax: | Phone: | | | | | protein-judy | [phone] | [phone] | | | | | danyel | | Fax: | | | | | malnutrition | | [phone] | | | | | (HCC) | [...] Care Coordination | | 2019 | | [place] at [facility] 6835 | PA-C [address] | (Local provider, | | | | [address] Nguyen | [address] | local labs) | | | | Mailcode: [place] | [place], [place] | | | | | [facility] and | [address] | | | | | [facility] 2 | [phone] | | | | | [place], [place] | | | | | | [address] | | | | | | [phone] | | | +--------+ + + + [...] | | | | | | [place] [address] | | | | | | [phone] | | | | | | | [...] | | | | | | [place] [address] | | | | | | [phone] | | | | | | | | +--------+ + + + + | 09/13/ | Office | Hematology & | Rodney, | | | 2018 | Visit | Oncology | MD Leo Lees | | | | | | [place] | | | | | | [place] [address] | | | | | | [phone] | | | | | | | | +--------+ + + + + | 01/24/ | Office | Surgery | Neri Steven MD | | | 2019 | Visit | | [address] | | | | | | [place], | | | | | | [place] [address] | | | | | | [phone] | | | | | | | [...]
--- OUTSIDE RECORDS SUMMARY | ~2019-08-28 | XMS | Encounter Summary ---
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
--- OUTSIDE RECORDS SUMMARY | ~2019-08-28 | XMS | Encounter Summary ---
Demographics + + + | Address | [address] | | | [place] [address] | + + + | Home Phone | | + + + | Preferred Language | Unknown | + + + | Marital Status | Single | + + + | Religion Affiliation | CAT | + + + [...] Samantha Ramos | ECON | [address] # | | | | | [place] | | | | | [address] | | + + + + + Care Team Providers + +------+ + | Care Hotel Yardperson Name | Role | Phone | + [...] | | | | Mailcode: Center | [place], [place] | | | | | [facility] and | [address] | | | | | [facility] 2 | [phone] | | | | | [place], [place] | | | | | | [address] | | | | | | [phone] | | | +--------+ + + + [...] 2019 | Encounter | | MD Harris [address] | | | | | | [place], | | | | | | [place] [address] | | | | | | [phone] | | | | | | | [...] | | | | | | [place] [address] | | | | | | [phone] | | | | | | | | +--------+ + + + + | 09/13/ | Office | Hematology & | Rodney | | | 2019 | Visit | Oncology | MD Leo Lees | | | | | | [place] | | | | | | [place] [address] | | | | | | [phone] | | | | | | | | +--------+ + + + + | 01/24/ | Office | Surgery | Neri Steven MD | | | 2020 | Visit | | [address] | | | | | | [place], | | | | | | [place] [address] | | | | | | [phone] | | | | | | | | +--------+ + + + + documented as of this encounter Visit Diagnoses Not on filedocumented in this encounter"
--- OUTSIDE RECORDS SUMMARY | ~2019-08-28 | XMS | Encounter Summary ---
Demographics + + + | Address | [address] | | | [place] [address] | + + + | Home Phone [...] Samantha Ramos | ECON | [address] # | | | | | [place] | | | | | [address] | | + + + + + Care Team Providers + +------+ + | Care Material Handling Warehouse Supervisor Name | Role | Phone | [...] | Diabetic | Lashawn Tan, | [address] | | | | | gastroparesi | [address] | [place] | | | | | s (HCC) | [address] [facility] | Mailcode: | | | | | Procedures | [facility] | [facility] | | | | | CONSULT TO | Rd | Health and | | | | | SURGERY - | [facility] [place] | Healing, | | | | | GENERAL | [address] | [address] | | | | | CONSULT TO | Phone: | [place], [place] | | | | | SURGERY - | [phone] | [address] | | | | | GENERAL | Fax: | Phone: | | | | | | [phone] | [phone] | | | | | | | Fax: | | | | | | | [phone] | + +--------+ + + + + [...] | | | ogy | Abdominal | [facility], | [address] | | | | | pain | Vicky N, | [address] | | | | | abdominal | [employer] PROGRAMMER [address] | Mailcode: | | | | | pain | [place] | [facility] | | | | | | [place] | [facility] and | | | | | | [address] | Healing, | | | | | | [place], | [address] | | | | | | [place] [address] | [place], [place] | | | | | | Phone: | [address] | | | | | | [phone] | Phone: | | | | | | Fax: | [phone] | | | | | | [phone] | Fax: | | | | | | | [phone] | +--------+--------+ + + + + Encounter [...] | | | | Mailcode: Center | [place], [place] | Chronic diarrhea | | | | [facility] and | [address] | | | | | [facility] 2 | [phone] | | | | | [place], [place] | | | | | | [address] | | | | | | [phone] | | | +--------+---------+ + + + [...] once the orders have been submitted to [facility]. Please do not hesitate to contact my office via phone or DoseMehart if you have any questions. Thank you! [...] is reported. SOCIAL HISTORY: Pt lives in [place], [place] with his mother. Not working. Smokes 1/4-1/2ppd, working on cutting back. Denies EtOH. Endorses occasional marijuana use, denies illicit drug use otherwise. Past Surgical History Procedure Laterality Date Elbow surgery MEDICATIONS Current Outpatient Medications Medication Sig Blood Sugar Diagnostic (PosibaIA MICROFILL) In Vitro Strip use to test [...] Lashawn Joy PA-C [facility] [address] [facility] Mailcode: [place] [address] documented in this encounter Plan [...] | | | | | | [place] [address] | | | | | | [phone] | | | | | | | [...] | | | | | | [place] [address] | | | | | | [phone] | | | | | | | | +--------+ + + + + | 09/13/ | Office | Hematology & | Rodney, | | | 2018 | Visit | Oncology | MD Nabeel [address] | | | | | | [place], | | | | | | [place] [address] | | | | | | [phone] | | | | | | | | +--------+ + + + + | 01/24/ | Office | Surgery | Neri Steven MD | | | 2019 | Visit | | [address] | | | | | | [place], | | | | | | [place] [address] | | | | | | [phone] | | | | | | | [...] [address] | [place] | [phone] | | [place] | | | | [...] [address] | [place], [place] | [phone] | | [place] | | | | [...] [address] | [place], [place] | [phone] | | [place] | | | | [...] [address] | [place] | [phone] | | [place] | | | | [...] | + + + + + | [facility] | [address] | [place] [address] | | | SERVICES, CORE | ZENA [...] | + + + + + | [facility] - | [address] | [place] [address] | | | [place] | | | | + + + [...] | | | LABORATORY | | | [place] | | | SERVICES, | | | [...] | + + + + + | [facility] | [address] | [place] [address] | | | ZOEY DODD | ZENA [...] VERITO [place] | [address] | [place] [address] | | | SERVICES, CORE | PARK [...]
--- OUTSIDE RECORDS SUMMARY | ~2019-08-28 | XMS | Encounter Summary ---
Demographics + + + | Address | [address] | | | [place] [address] | + + + | Home Phone [...] | [place] | | | | | [address] | | + + + + + Care Team Providers + +------+ + | Care Dryerman/Woman Name | Role | Phone | + [...] | 03/22/ | Telephone | [facility] [place] [facility] Referral | | 2019 | | GASTROENTEROLOGY | DANA Perry [address] | | | | | [address] | [place], [place] [address] | | | | | [address] [place], [place] | [place], [place] | | | | | [address] | [address] | | | | | [phone] | | | +--------+ + + + [...]
--- OUTSIDE RECORDS SUMMARY | ~2019-08-28 | XMS | Encounter Summary ---
Demographics + + + | Address | [address] | | | [place] [address] | + + + | Home Phone [...] Samantha Ramos | ECON | [address] # | | | | | [place] | | | | | [address] | | + + + + + Care Team Providers + +------+ + | Care Traffic Routing Engineer Name | Role | Phone | [...] Only | PPV [address] | LINUX ENGINEER [address] | | | | | [address] | [address] | | | | | Mailcode: PV430 | [place] [address] | | | | | [facility] | [phone] | | | | | [place], [place] | | | | | | [address] | | | | | | [phone] | | | +--------+ + + + [...] 2019 | Encounter | | MD Harris [address] | | | | | | [place] | | | | | | [place] [address] | | | | | | [phone] | | | | | | | [...] | | | | | | [place] [address] | | | | | | [phone] | | | | | | | | +--------+ + + + + | 09/13/ | Office | Hematology & | Rodney | | | 2019 | Visit | Oncology | MD Leo Lees | | | | | | [place] | | | | | | [place] [address] | | | | | | [phone] | | | | | | | | +--------+ + + + + | 01/24/ | Office | Surgery | Neri Steven MD | | | 2019 | Visit | | [address] | | | | | | [place], | | | | | | [place] [address] | | | | | | [phone] | | | | | | | [...]
--- OUTSIDE RECORDS SUMMARY | ~2019-08-28 | XMS | Encounter Summary ---
Demographics + + + | Address | [address] | | | [place] [address] | + + + | Home Phone [...] | Gia Ramos | ECON | [address] | | | | | [place] | | | | | [address] | | + + + + + Care Team Providers + +------+ + | Care Fresh Work Wrapper Layer Name | Role | Phone | [...] + + | 09/19/ | [facility] | [facility] | Tc Mora | CYSTOSCOPY W/ | | 2017 | | MED CTR OR INTRA OP | MD Boyd [address] | URETEROSCOPY W/ | | | | [address] | [place] | LASER LITHOTRIPSY | | | | [place] | [address] | WITH STENT PLACEMENT | | | | [address] | | | | | | [phone] | | | +--------+---------+ + + + [...] might be differ ent from the original. [facility] Urology Progress Note Brooks Marquez [...] [address] | [place] | [phone] | | [facility] | | [address] | | | - LABORATORY | | [...] (H) | 7 - 18 mg/dL | [facility] | | | | | | ST. [...] | | MEDICAL | | | | mL/min/1.20z4Bbwd than | | CENTER - | | [...] [address] | [place] | [phone] | | [facility] | | [address] | | | - LABORATORY | | [...] [address] | [place] | [phone] | | [facility] | | [address] | | | - LABORATORY | | [...] ST. | [address] | [place] | [phone] | | [facility] | | [address] | | | - LABORATORY | | [...] ST. | [address] | [place], [place] | [phone] | | [facility] | | [address] | | | - LABORATORY | | [...] - 1.030 | [facility] | | | [place] | | | [facility] | | [...] + | [facility] [facility] | [address] | [place] | [phone] | | [facility] | | [address] | | | - LABORATORY | | [...] [address] | [place] | [phone] | | [facility] | | [address] | | | - LABORATORY | | [...] + | [facility] | [address] | [place] | [phone] | | [facility] | | [address] | | | - LABORATORY | | [...] [address] | [place] | [phone] | | [facility] | | [address] | | | - LABORATORY | | [...] [address] | [place] | [phone] | | [facility] | | [address] | | | - LABORATORY | | [...] 2.07 (H) | 0.60 - 1.30 | [facility] | | | | | mg/dL | [facility] | | | | | | MEDICAL | | | | | | CENTER - | | | | | | LABORATORY | | + + + + + + | eGFR if not | 38 (L)Comment: | >=60 | [facility] | | | | GLOMERULAR FILTRATION | mL/min/1.73m2 | [facility] | | | [place] | RATE,ESTIMATED | | MEDICAL | | | | mL/min/1.78c3Bags than | | CENTER - | | [...] + | [facility] | [address] | [place] | [phone] | | [facility] | | [address] | | | - LABORATORY | | [...] [address] | [place] | [phone] | | [facility] | | [address] | | | - LABORATORY | | [...] MD | | | | | | ([id number]) on 09/21/2018 | | | | | [...] [address] | [place] | [phone] | | [facility] | | [address] | | | - LABORATORY | | [...] [address] | [place] | [phone] | | [facility] | | [address] | | | - LABORATORY | | [...] | | MEDICAL | | | | mL/min/1.10a6Znts than | | CENTER - | | [...] [address] | [place] | [phone] | | [facility] | | [address] | | | - LABORATORY | | [...] [address] | [place] | [phone] | | [facility] | | [address] | | | - LABORATORY | | [...] mL/min/1.73m2 | [facility] | | | [place] | RATE,ESTIMATED | | MEDICAL | | | | mL/min/1.55z2Lqjv than | | CENTER - | | [...] [address] | [place] | [phone] | | [facility] | | [address] | | | - LABORATORY | | [...] + | [address] [facility] | [address] | [place] | [phone] | | [facility] | | [address] | | | - LABORATORY | | [...] [facility] | | | | | | at:[phone]. | | | | + + + [...] Gaurav Ortiz, | REFERENCE LAB | | [place] [id number] Soil Science Teacher: Sarabjit Love MD, Phone: | MICHELLE - [facility]ERRA | | [phone] | | + + + + + + + + | Performing | Address | City/State/Zipcode | Phone Number | | Organization | | | | + + + + + | REFERENCE LAB | [address] | [place] [address] | [phone] | | [facility] | Drive [...] | | POC | | | [facility] | | | | [...] ST. | [address] | [place], [place] | [phone] | | [facility] | | [address] | | | - LABORATORY | | [...] | | | | | | | 1344-0473 Use NIGHT DOSE for | | | | | | | doses scheduled: HS, 3AM, | | | | | | | Nighttime 9957-7312, | | | | | | + [...]
--- OUTSIDE RECORDS SUMMARY | ~2019-08-28 | XMS | Encounter Summary ---
Demographics + + + | Address | [address] | | | [place] [address] | + + + | Home Phone [...] | [place] | | | | | [address] | | + + + + + Care Team Providers + +------+ + | Care Transport Driver Name | Role | Phone | + +------+ + | Erich Yates | PCP | | + +------+ + Encounter Details +--------+ + + + + | Date | Type | Department | Care Team | Description | +--------+ + + + + | 05/15/ | Abstract | [facility] [place] | Divya, | | | 2017 | | GASTROENTEROLOGY | MD V[address] | | | | | [address] [facility] | Hillary [place]. | | | | | [address] [place] | [place] [address] | | | | | [address] | | | | | | [phone] | | | +--------+ + + + [...]
--- OUTSIDE RECORDS SUMMARY | ~2019-08-28 | XMS | Encounter Summary ---
Demographics + + + | Address | [address] | | | [place] [address] | + + + | Home Phone [...] Gia Ramos | ECON | [address] | | | | | [place] | | | | | [address] | | + + + + + Care Team Providers + +------+ + | Care Elementary Tutor Name | Role | Phone | + +------+ + | Erich Yates | PCP | | + +------+ + Encounter Details +--------+ + + + + | Date | Type | Department | Care Team | Description | +--------+ + + + + | 02/28/ | Documentati | [facility] [place] | [facility], | | | 2019 | on | GASTROENTEROLOGY | DANA Perry [address] | | | | | [address] [place] | [place], [address] | | | | | [address] [place], [place] | [place], [place] | | | | | [address] | [address] | | | | | [phone] | | | +--------+ + + + [...]
--- OUTSIDE RECORDS SUMMARY | ~2019-08-28 | XMS | Encounter Summary ---
Demographics + + + | Address | [address] | | | [place] [address] | + + + | Home Phone [...] + + + | Author | [facility] | | | and [place] | + + + | Organization | [facility] | | | and [place] | + + + | Address | Unknown | + + + | Phone | Unavailable | + + + Support + + + + + | Name | Relationship | Address | Phone | + + + + + | Gia Ramos | ECON | [address] | | | | | [place] | | | | | [address] | | + + + + + Care Team Providers + +------+ + | Care Television Technician Name | Role | Phone | + +------+ + | Erich Yates | PCP | | + +------+ + Encounter Details +--------+ + + + + | Date | Type | Department | Care Team | Description | +--------+ + + + + | 03/16/ | Orders Only | [facility] | Conversion | | | 2018 | | [place] | Transaction, | | | | | [address] | Provider Unknown | | | | | [address] [place], [place] | | | | | | [address] | (Fax) | | | | | [phone] | | | +--------+ + + + [...]
--- OUTSIDE RECORDS SUMMARY | ~2019-08-28 | XMS | Encounter Summary ---
Demographics + + + | Address | [address] | | | [place] [address] | + + + | Home Phone [...] | [id number] | | | | | [address] | | + + + + + Care Team Providers + +------+ + | Care Etl Informatica Developer Name | Role | Phone | + +------+ + | Eirch Yates | PCP | | + +------+ + Reason for Visit + + + | Reason | Comments | + + + | Care Plan | | + + + Encounter Details +--------+ + + + + | Date | Type | Department | Care Team | Description | +--------+ + + + + | 07/03/ | Telephone | [facility] | [facility], | Care Plan | | 2019 | | GASTROENTEROLOGY | [address]NA [address] | | | | | [address] [place] | [place], [address] | | | | | [address] [place], [place] | [place], [place] | | | | | [address] | [address] | | | | | [phone] | | | +--------+ + + + [...]
--- OUTSIDE RECORDS SUMMARY | ~2019-08-28 | XMS | Clinical Summary ---
Demographics + + + | Address | [address] | | | [place] [address] | + + + | Home Phone [...] | Gia Ramos | ECON | [address] | | | | | [place] | | | | | [address] | | + + + + + Care Team Providers + +------+ + | Care Nail Technician Teacher Name | Role | Phone | [...] Right: | COOK | | 07/14/ | [id number] | | - [id number]: | | | [employer] | | 2020 | / | | Qty: 1 on 09/19/2018 by | | Ureter | - JOYCE | | | /[id number] | | Tc Mora MD at | | | | | | 43 | | [facility] | | | | | | | | [facility] | | | [...] | | | POC | performed at [facility];[address] | | LABORATORY | | | | [address] [facility];[place], [place] | | | | | | [address] | | | | + + + + + + + + | Specimen | + + | | + + + + + + + | Performing | Address | City/State/Zipcode | Phone Number | | Organization | | | | + + + + + | [facility] | [address] | [place] [address] | [phone] | + + + + + Troponin [...] <0.006Comment: 0.04 | 0.00 - 0.04 | [facility] | | | | ng/mL [...] at | | | | | | [facility];[address] | | | | | | [facility];[place] [address] | | | | + + + + + + + + | Specimen | + + | | + + + + + + + | Performing | Address | City/State/Zipcode | Phone Number | | Organization | | | | + + + + + | [facility] | [address] | [place] [address] | [phone] | + + + + + CBC [...] [facility] | | | | performed at [facility];[address] | | LABORATORY | | | | [address];[place] | | | | | | [address] | | | | + + + + + + + + | Specimen | + + | Blood | + + + + + + + | Performing | Address | City/State/Zipcode | Phone Number | | Organization | | | | + + + + + | [facility] | [address] | [place] [address] | [phone] | + + + + + TSH (06/10/2019 5:58 AM PDT) + + + + + + | Component | Value | Ref Range | Performed | Pathologist | | | | | At | Signature | + + + + + + | TSH | 0.811Comment: Testing | 0.450 - 5.100 | MONI[facility] | | | | performed at [facility];888 | uIU/mL | LABORATORY | | | | [address];[place], [place] | | | | | | [address] | | | | + + + + + + + + | Specimen | + + | Blood | + + + + + + + | Performing | Address | City/State/Zipcode | Phone Number | | Organization | | | | + + + + + | [facility] | [address] | [place] [address] | [phone] | + + + + + Hemoglobin A1C (06/10/2019 5:58 AM PDT) + + + + + + | Component | Value | Ref Range | Performed | Pathologist | | | | | At | Signature | + + + + + + | Hemoglobin | 8.8 (H)Comment: HbA1c | 4.0 - 6.0 % | [facility] | | | A1c | [...] | 206 (H)Comment: | <154 mg/dL | [facility] | | | Average | Estimated Average | | LABORATORY | | | Glucose | Glucose calculated from | | | | | | hemoglobin A1c by use of | | | | | | the ADArecommended | | | | | | formula.Testing | | | | | | performed at [facility], [address] | | | | | | [address], | | | | | | [place] [address] | | | | + + + + + + + + | Specimen | + + | Blood | + + + + + + + | Performing | Address | City/State/Zipcode | Phone Number | | Organization | | | | + + + + + | [facility] | [address] [facility] | [place] [address] | [phone] | + + + + + Basic [...] | | | | | performed at [facility] | | | | | | [facility];[place], [place] | | | | | | [address] | | | | + + + + + + + + | Specimen | + + | Blood | + + + + + + + | Performing | Address | City/State/Zipcode | Phone Number | | Organization | | | | + + + + + | [facility] | [address] | [place] [address] | [phone] | + + + + + ECG [...] | | | Calculated | performed at [facility], [address] | | LABORATORY | | | | [address], | | | | | | [place] [address] | | | | + + + + + + + + | Specimen | + + | Blood | + + + + + + + | Performing | Address | City/State/Zipcode | Phone Number | | Organization | | | | + + + + + | [facility] | [address] | [place] [address] | [phone] | + + + + + from [...] | [employer] | MOD[employer] | [id number] | | [phone] | | Medica | | MEDICAID HMO | HEALTH | | 018-Pr | 1 | | id | | | MDCD | | esent | | | | | | [place] | | | | | | + +--------+ +--------+ +---------+--------+ | [employer] | [employer] | [id number] | | [phone] | | Medica | | MEDICAID HMO [...] [place] | | | 3 (Home) | [address] | + +--------+ +--------+ + + | Brooks Marquez | Person | Self | [birth year] | [address] | | | al/Fam | | 1990 | [phone] | [address] [place] | | | [place] | | | 3 (Home) | [address] | + +--------+ +--------+ + + Advance Directives + + + + + | Type | Date Recorded | Patient | Explanation | | | | Infrastructure Software Engineer | | + + + + + | Power of | | | | | Welding Machine Assembler | | | | + + + [...]
--- OUTSIDE RECORDS SUMMARY | ~2019-08-28 | XMS | Encounter Summary ---
Demographics + + + | Address | [address] | | | [place] [address] | + + + | Home Phone [...] Samantha Ramos | ECON | [address] | | | | | [place] | | | | | [address] | | + + + + + Care Team Providers + +------+ + | Care Distribution Clerk Name | Role | Phone [...] | | 2015 | | Center at [facility] [address] | | - General | | | | [address] [place] | | | | | | Mailcode: Center | | | | | | for Health and | | | | | | [facility], [facility] [address] | | | | | | [place], [place] | | | | | | [address] | | | | | | [phone] | | | +--------+ + + + [...] 2018 | Encounter | | MD Harris [address] | | | | | | [place], | | | | | | [place] [address] | | | | | | [phone] | | | | | | | | +--------+ + + + + | 09/03/ | Appointment | Procedural Care Unit | | | | 2018 | | | | | +--------+ + + + + | 09/03/ | Appointment | Gastroenterology | Greg Mathis | | | 2018 | | | MD Harris [address] | | | | | | [place], | | | | | | [place] [address] | | | | | | [phone] | | | | | | | | +--------+ + + + + | 09/13/ | Office | Hematology & | Rodney | | | 2018 | Visit | Oncology | MD Nabeel [address] | | | | | | [place], | | | | | | [place] [address] | | | | | | [phone] | | | | | | | | +--------+ + + + + | 01/24/ | Office | Surgery | Neri Steven MD | | | 2019 | Visit | | [address] | | | | | | [place], | | | | | | [place] [address] | | | | | | [phone] | | | | | | | | +--------+ + + + + documented as of this encounter Visit Diagnoses Not on filedocumented in this encounter"
--- OUTSIDE RECORDS SUMMARY | ~2019-08-28 | XMS | Encounter Summary ---
Demographics + + + | Address | [address] | | | [place] [address] | + + + | Home Phone [...] Gia Ramos | ECON | [address] | | | | | [place] | | | | | [address] | | + + + + + Care Team Providers + +------+ + | Care Scalder Name | Role | Phone | + [...] + + | 09/19/ | Surgery | [facility] | Tc Mora | CYSTOSCOPY W/ | | 2017 | | MED CTR OR INTRA OP | MD Boyd [address] | URETEROSCOPY W/ | | | | [address] | [place] | LASER LITHOTRIPSY | | | | [place] | [address] | WITH STENT PLACEMENT | | | | [address] | | | | | | [phone] | | | +--------+---------+ + + + [...] might be differ ent from the original. [facility] Urology Progress Note Brooks Marquez [...] [address] | [place] | [phone] | | [facility] | | [address] | | | - LABORATORY | | [...] (H) | 7 - 18 mg/dL | [facility] | | | | | | ST. [...] | | MEDICAL | | | | mL/min/1.63v0Zwuy than | | CENTER - | | [...] [address] | [place] | [phone] | | [facility] | | [address] | | | - LABORATORY | | [...] [address] | [place] | [phone] | | [facility] | | [address] | | | - LABORATORY | | [...] ST. | [address] | [place] | [phone] | | [facility] | | [address] | | | - LABORATORY | | [...] ST. | [address] | [place], [place] | [phone] | | [facility] | | [address] | | | - LABORATORY | | [...] - 1.030 | [facility] | | | [place] | | | [facility] | | [...] + | [facility] [facility] | [address] | [place] | [phone] | | [facility] | | [address] | | | - LABORATORY | | [...] [address] | [place] | [phone] | | [facility] | | [address] | | | - LABORATORY | | [...] + | [facility] | [address] | [place] | [phone] | | [facility] | | [address] | | | - LABORATORY | | [...] [address] | [place] | [phone] | | [facility] | | [address] | | | - LABORATORY | | [...] [address] | [place] | [phone] | | [facility] | | [address] | | | - LABORATORY | | [...] 2.07 (H) | 0.60 - 1.30 | [facility] | | | | | mg/dL | [facility] | | | | | | MEDICAL | | | | | | CENTER - | | | | | | LABORATORY | | + + + + + + | eGFR if not | 38 (L)Comment: | >=60 | [facility] | | | | GLOMERULAR FILTRATION | mL/min/1.73m2 | [facility] | | | [place]ARTIN[place] | RATE,ESTIMATED | | MEDICAL | | | | mL/min/1.73u1Vrqc than | | CENTER - | | [...] + | [facility] | [address] | [place] | [phone] | | [facility] | | [address] | | | - LABORATORY | | [...] [address] | [place] | [phone] | | [facility] | | [address] | | | - LABORATORY | | [...] MD | | | | | | ([id number]) on 09/21/2018 | | | | | [...] [address] | [place] | [phone] | | [facility] | | [address] | | | - LABORATORY | | [...] [address] | [place] | [phone] | | [facility] | | [address] | | | - LABORATORY | | [...] | | MEDICAL | | | | mL/min/1.87n7Izof than | | CENTER - | | [...] [address] | [place] | [phone] | | [facility] | | [address] | | | - LABORATORY | | [...] [address] | [place] | [phone] | | [facility] | | [address] | | | - LABORATORY | | [...] mL/min/1.73m2 | [facility] | | | [place] | RATE,ESTIMATED | | MEDICAL | | | | mL/min/1.18e6Lpkt than | | CENTER - | | [...] [address] | [place] | [phone] | | [facility] | | [address] | | | - LABORATORY | | [...] + | [facility] | [address] | [place] | [phone] | | [facility] | | [address] | | | - LABORATORY | | [...] [facility] | | | | | | at:[phone]. | | | | + + + [...] Gaurav Ortiz, | REFERENCE LAB | | [place] [id number] Web Applications Architect: Sarabjit Love MD, Phone: | [facility] | | [phone] | | + + + + + + + + | Performing | Address | City/State/Zipcode | Phone Number | | Organization | | | | + + + + + | REFERENCE LAB | [address] | [place] [address] | [phone] | | [facility] | Drive [...] ST. | [address] | [place], [place] | [phone] | | [facility] | | [address] | | | - LABORATORY | | [...] | | | | | | | 3475-7022 Use NIGHT DOSE for | | | | | | | doses scheduled: HS, 3AM, | | | | | | | Nighttime 7044-3261, | | | | | | + [...]
--- OUTSIDE RECORDS SUMMARY | ~2019-08-28 | XMS | Encounter Summary ---
Demographics + + + | Address | [address] | | | [place] [address] | + + + | Home Phone | | + + + | Preferred Language | Unknown | + + + | Marital Status | Single | + + + | Congregation Affiliation | CAT | + + + [...] Samantha Ramos | ECON | [address] # | | | | | [place] | | | | | [address] | | + + + + + Care Team Providers + +------+ + | Care Bessemer Converter Operator Name | Role | Phone | + +------+ + | Neri Moijca MD | PCP | | + +------+ + Encounter Details +--------+ + + + + | Date | Type | Department | Care Team | Description | +--------+ + + + + | 07/19/ | Results | Orthopaedics at | [place], | | | 2005 | Only | [facility] [address] | ROOFING TECHNICIAN [address] | | | | | [address] | [address] | | | | | Mailcode: PV430 | [place] [address] | | | | | [facility] | [phone] | | | | | [place], [place] | | | | | | [address] | | | | | | [phone] | | | +--------+ + + + [...] 2019 | Encounter | | MD Harris [address] | | | | | | [place] | | | | | | [place] [address] | | | | | | [phone] | | | | | | | [...] | | | | | | [place] [address] | | | | | | [phone] | | | | | | | | +--------+ + + + + | 09/13/ | Office | Hematology & | Rodney | | | 2019 | Visit | Oncology | MD Leo Lees | | | | | | [place] | | | | | | [place] [address] | | | | | | [phone] | | | | | | | | +--------+ + + + + | 01/24/ | Office | Surgery | Neri Steven MD | | | 2019 | Visit | | [address] | | | | | | [place], | | | | | | [place] [address] | | | | | | [phone] | | | | | | | [...]
--- OUTSIDE RECORDS SUMMARY | 2019-08-28 19:22 | XMS ---
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 04/01/2019 14:50 - Other Details: PATIENT LEFT CASSIDY. IRIS CREATED. CRITERIA MET - [facility] - Has Care Guidelines - PDMP CARE PROVIDERS CAMERON MENDEZ 05/01/2018-Current PHONE: [phone] [facility] Primary Care [facility] PHONE: Unknown ROSA JASSO Primary Care Current PHONE: Unknown Guidelines Source: [facility] [place] IPA Guidelines Date: 05/04/2019 Care Coordination: If pt. presents to Ed please call case management at [facility] [phone] Leandra DORMAN or Jenni Westbrook RN Case Manager.\T\nbsp; Care History Medical/Surgical 05/01/2018 [facility] - CHW referred patient to [facility] case management team. - Further education on medications/chronic pain education is needed. - [facility] case management can be reached at [phone]. E.D. VISIT COUNT (12 MO.) 9 [facility] TOTAL 9 NOTE: Visits indicate total known visits. ED/C VISIT TRACKING (12 MO.) 08/28/2019 19:21 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 - Upper abdominal pain, unspecified - Other intermission coordinator (current) drug therapy - Allergy status to narcotic agent status - Nicotine dependence, unspecified, uncomplicated - Gastroparesis - Personal history of urinary calculi - Essential (primary) hypertension 06/12/2019 11:35 [facility] [place] TYPE: Emergency COMPLAINT: - BODY ACHES,CHILLS DIAGNOSES: - correction (current) use of insulin - Allergy status to narcotic agent status - 1 Type 1 diabetes mellitus without complications - Other intermission coordinator (current) drug therapy - Essential (primary) hypertension - Nicotine dependence, unspecified, uncomplicated - Upper abdominal pain, unspecified - Personal history of urinary calculi - Lower abdominal pain, unspecified 06/09/2019 11:31 [facility] [place] TYPE: Emergency COMPLAINT: - DEHYDRATION, ABD PAIN DIAGNOSES: - correction (current) use of insulin - Chest pain, unspecified - Essential (primary) hypertension - Unspecified abdominal pain - Other intermission coordinator (current) drug therapy - 1 Type 1 diabetes mellitus with hyperglycemia - Allergy status to narcotic agent status - Nicotine dependence, unspecified, uncomplicated - Other specified abnormalities of plasma proteins - Personal history of urinary calculi 04/01/2019 14:50 [facility] [place] TYPE: Emergency COMPLAINT: - VOMITING,POSS DEHYDRATION DIAGNOSES: - Essential (primary) hypertension - Acute kidney failure, unspecified - Allergy status to narcotic agent status - Nicotine dependence, unspecified, uncomplicated - Vomiting, unspecified - Other intermission coordinator (current) drug therapy - Personal history of urinary calculi - 1 Type 1 diabetes mellitus without complications 01/21/2019 16:25 [facility] [place] TYPE: Emergency COMPLAINT: - STOMACH PAIN AND VOMITING DIAGNOSES: - Nausea with vomiting, unspecified - 1 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 - Gastroparesis - Essential (primary) hypertension - Rheumatoid arthritis, unspecified - Allergy status to narcotic agent status - Personal history of urinary calculi - Nicotine dependence, unspecified, uncomplicated - Other half-way (current) drug therapy - Acquired absence of right leg below knee 10/29/2018 15:33 [facility] [place] TYPE: Emergency COMPLAINT: - WOUND CHECK/PRESSURE SORE 09/19/2018 13:00 [facility] [place] TYPE: Emergency COMPLAINT: - FLANK PAIN/VOMITING DIAGNOSES: - Unspecified abdominal pain - 1 Type 1 diabetes mellitus without complications - Nicotine dependence, unspecified, uncomplicated - buttermaker continuous churn (current) use of insulin - Essential (primary) hypertension - Allergy status to narcotic agent status - Other intermission coordinator (current) drug therapy - Calculus of kidney with calculus of ureter 09/13/2018 05:35 [facility] [place] TYPE: Emergency COMPLAINT: - R FLANK PAIN DIAGNOSES: - correction (current) use of insulin - Essential (primary) hypertension - Allergy status to narcotic agent status - Other half-way (current) drug therapy - 1 Type 1 diabetes mellitus without complications - Hydronephrosis with renal and ureteral calculous obstruction - Chronic pain syndrome - Unspecified abdominal pain - Nicotine dependence, unspecified, uncomplicated INPATIENT VISIT TRACKING (12 MO.) 10/29/2018 19:[address] [facility] [place] TYPE: Medical Surgical COMPLAINT: - NECROTIZING FASCITIS DIAGNOSES: - Fever, unspecified - Sepsis, unspecified organism Sepsis, u - Acidosis - 1 Type 1 diabetes mellitus w diabetic chronic kidney disease - Phantom limb syndrome with pain - 1 Chronic kidney disease, stage 3 (moderate) - Acute kidney failure, unspecified - Rheumatoid arthritis, unspecified - Other half-way (current) drug therapy - Unspecified abdominal pain - Allergy status to narcotic agent status - Acidosis - Hypocalcemia - Unspecified abdominal pain - Other chronic pain - Rheumatoid arthritis, unspecified - Acute kidney failure, unspecified - 1 Type 1 diabetes mellitus with hyperglycemia - Nicotine dependence, unspecified, uncomplicated - Allergy status to narcotic agent status - Necrotizing fasciitis - Other chronic pain - 1 Type 1 diabetes mellitus w diabetic chronic kidney disease - 1 Hypertensive chronic kidney disease w stg -/unsp chr kdny - Nicotine dependence, unspecified, uncomplicated - Non-prs chronic ulcer oth prt right foot w unsp severity - buttermaker continuous churn (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 - 1 Type 1 diabetes mellitus with hyperglycemia - Hypocalcemia - Other intermission coordinator (current) drug therapy - 1 Chronic kidney disease, stage 3 (moderate) - buttermaker continuous churn (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 - buttermaker continuous churn (current) use of insulin - Non-prs chronic ulcer oth prt right foot w unsp severity - Phantom limb syndrome with pain - buttermaker continuous churn (current) use of insulin - Anemia, unspecified - 1 Type 1 diabetes mellitus with foot ulcer - Sepsis, unspecified organism Sepsis, u - 1 Hypertensive chronic kidney disease w stg -/unsp chr kdny - 1 Type 1 diabetes mellitus with foot ulcer - Necrotizing fasciitis - Anemia, unspecified 09/19/2018 19:02 [facility] TYPE: Surgical Services DIAGNOSES: - Calculus of ureter - Acute kidney failure, unspecified - Unspecified abdominal pain - Hyperkalemia - Unspecified hydronephrosis [email or web address]
[2019-08-28] MEDS ORDERED: LANTUS SOL100 UNIT/1 SUB-Q (19:51)
--- NOTE | 2019-08-29 03:36 | NUR ---
PT ADMITTED TO CCU PER STRETCHER AT 0. IMMEDIATELY STATED HE FELT LIKE HIS BLOOD SUGAR WAS LOW AND ALSO C/O SEVERE ABD PAIN. BS CHECKED AND FOUND TO BE 60. DR CAROLINA NOTIFIED AND ORDER RECIEVED. PT GIVEN 25ML OF D50 AND IV OF D5LR HUNG. BS RECHECKED AT 2054 AND WAS 86. PT WAS GIVEN 1 MG DILAUDID IV FOR PAIN 06/05, AFTER ABOUT 30MIN PAIN WAS DOWN TO 4. NO NAUSEA AT THIS TIME. GIVEN CALL LIGHT AND LIGHTS OUT.
--- NOTE | 2019-08-29 06:25 | NUR ---
IN TH CHECK PT. PT WAS AWAKE AND REPORTING THAT HE FELT LIKE HIS BLOOD SUGAR WAS LOW. CHECK AND FOUND TO BE 40. GIVEN 50M OF D50 SLOWLY. ALSO C/O RETURN OF ABD PAIN. GIVEN 10GM REGLAN IV TO PREVENT NAUSEA AND 1 MG DILAUDID FOR PAIN. BLOOD SUGAR RECHECKED 15 MIN AFTER D 50 AND FOUND TO BE 117. APPLE JUICE AT BEDSIDE. PT ALREADY STARTING TO FEEL BETTER.
--- NOTE | 2019-08-29 08:00 | NUR ---
In to speak with Alin, who is well known to this RN. Cont. with issues with his gastoparesis. Awaiting an appt. at [facility] for Botox injections to decrease issue. Alin states he has developed a sore on the back of his stump from his prosthesis. Nurse made aware. Pt. would like to dc to home with mom when able to go home. Pt has wc, walker, shower chair, and prosthesis.
--- NOTE | 2019-08-29 08:31 | NUR ---
PATIENT RESTING IN BED UPON INITIAL ASSESSMENT. PT AWAKENS EASILY. PT STATES PAIN IS 8/10 AT THIS TIME AND REQUESTS ADDITIONAL DOSE OF PAIN MED. DILAUDID GIVEN AND PT ABLE TO SWALLOW HIS PILLS THIS AM FOR HIS BLOOD PRESSURES. 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 PT STATES HE HAS HAD THIS FOR A WHILE, AND BECAUSE HE CANNOT SEE VERY WELL AT ALL, HE HAS BEEN RELYING ON THE PRESENCE OF ANY ODOR FROM THE WOUND TO SEE IF IT'S INFECTED OR NOT. AREA IS OPEN AND HAS SOME PURULENT DRAINAGE IN WOUND BED. SKIN AROUND WOUND IS NOT REDENNED, BUT SLIGHTLY RAISED. WILL DISCUSS THIS WITH MD AND COVER WOUND. LOTION APPLIED TO LEFT LEG AND RIGHT STUMP SKIN WAS VERY DRY. 2+ EDEMA NOTED ON LEFT LOWER LEG BUT WRINKLING EVIDENT WELL. HR REMAINS IN THE LOW 100s. CBG THIS AM 74 AND IVF INCREASED TO 125 ML/HR PER DR. GE WARREN. GILBERT FROM [facility] IN TO SEE PATIENT. PT IS WAITING ON A BOTOX TREATMENT FOR HIS POTENTIAL GASTROPARESIS.
--- NOTE | 2019-08-29 10:26 | NUR ---
PATIENT'S MOTHER IN ROOM. UPDATE PROVIDED. PATIENT TO TRANSFER TO MEDICAL FLOOR WITHOUT TELEMETRY. PT STATES PAIN IS A 7/10 AT THIS TIME AND REQUESTING PAIN MEDICATION. WOUND CARE CONSULT PER DR. CAROLINA FOR WOUND ON RIGHT INNER KNEE AREA.
--- NOTE | 2019-08-29 11:04 | NUR ---
PT ARRIVED TO ROOM 114 ON MED SURG, REPORT RECIVED FROM ZAKIYA BRYANT. PT DENIES ANY PAIN, NAUSEA OR OTHER PROBLEMS AT THIS TIME. PT ORIENTED TO HIS ROOM AT THIS TIME. PT'S MOTHER PRESENT.
--- NOTE | 2019-08-29 11:05 | NUR ---
PATIENT TRANSFERRED TO MED/SURG TO ROOM 114. REPORT GIVEN TO JORJE. NEW IV PLACED ON RIGHT FOREARM AND IV IN LEFT FOREARM D/C. PT VOIDS >600 ML INTO URINAL WELL. PT TRANSFERRED IN BED.
--- NOTE | 2019-08-29 11:29 | NUR ---
1120: PT STATES HE FEELS THAT HIS BLOOD SUGAR IS LOW. CBG CHECKED AND IT IS 45, HE IS ALERT AND WAS GIVEN SOME OJ WHICH HE IS DRINKING. WILL RECHECK HIS CBG SHORTLY.
--- NOTE | 2019-08-29 11:42 | NUR ---
PT STATES HE NO LONGER FEELS "LOW" AND HIS CBG IN NOW IN THE 70'S AND HIS LUNCH IS ON THE WAY AND HE DENIES ANY NAUSEA.
--- NOTE | 2019-08-29 11:55 | NUR ---
DR CAROLINA NOTIFIED OF THE PT'S BLOOD SUGARS AND BP. IV FLUID WAS RECENTLY CHANGED AND WILL RECHECK BP SHORTLY.
--- NOTE | 2019-08-29 12:29 | NUR ---
PT EATING LUNCH AND HE STATES HIS PAIN IS CONTROLED AND HE DENIES ANY NAUSEA WITH EATING. BP RECHECKED 161/108.
--- NOTE | 2019-08-29 15:10 | NUR ---
PT RESTING IN HIS BED AND STATES HIS ABD PAIN IS NOW A 7/10 AND HE WAS MEDICATED ORDERED, SEE EMAR. PT DENIES ANY NAUSEA TO INCLUDE AFTER HAVING ATE LUNCH.
--- NOTE | 2019-08-29 16:06 | NUR ---
Pt sleeping, his mother remains in the room.
--- NOTE | 2019-08-29 17:31 | NUR ---
PT BEING SEEN BY THE WOUND CARE NURSE AT THIS TIME.
--- NOTE | 2019-08-29 17:41 | NUR ---
PT STATES HIS PAIN IN HIS ABD IS NOW AN 8. SEE EMAR.
--- NOTE | 2019-08-29 18:07 | NUR ---
Pt sleeping and awakes to voice and states his pain is "getting better" and rates it at a 6/10. Pt quickly back to sleep.
--- NOTE | 2019-08-29 18:18 | NUR ---
PT IS SEEN AFTER BEING REFERRED BY MD FOR RIGHT POSTERIOR THIGH PRESSURE INJURY. THE AREA MEASURES 1.6CM X 3.3CM X 0.3CM, THIS A STAGE 3 PRESSURE INJURY. THE BASE IS RED, WITH AREAS OF PALE ADHERENT SLOUGH/NECROTIC TISSUE. THE EDGES ARE PROLIFERATIVE WITH NO UNDERMINDING OR TUNNELING NOTED. THERE IS DRY EXUDATE ON THE WOUND PRIOR CLEANING. THE WOUND IS WARM TO THE TOUCH, WITH INDURATION NOTED APPROXIMATELY 1CM OUT FROM THE WOUND EDGE. THE PERIWOUND SKIN IS INTACT. PT TOLERATES WOUND CARE WITHOUT PAIN. A DEBRISOFT LOLLY IS USED TO CLEAN UP /DRIED TISSUE. SKIN PREP IS APPLIED TO PERIWOUND SKIN. MEDIHONEY IS PUT ON AN ADHESIVE FOAM, THEN APPLIED TO WOUND BED. WOUND CARE PLAN ORDERS ARE WRITTEN OUT AND PUT IN THE PT'S CHART.
--- NOTE | 2019-08-29 19:16 | NUR ---
RECEIVED REPORT FROM ANNETTE RECINOS. pt RESTING IN BED WITH COVER OVER HEAD. WOKE WHEN SPOKEN TO, RATED PAIN 8/10. WHITEBOARD UPDATED. WILL RETURN WITH PAIN MEDICATION. CALL LIGHT WITHIN REACH.
--- NOTE | 2019-08-29 21:43 | NUR ---
ASSESSMENT DONE. RATED PAIN 8/10, PRN PAIN MED GIVEN WITH SCHEDULED MEDS (SEE MAR). BLOOD GLUCOSE WITHIN RANGE. DISCUSSED HYPO/HYPERGLYCEMIA AND SIGNS AND SYMPTOMS. VITALS AND I&O RECORDED. pt HAD BM. USES BSC INDEPENDENTLY. PROVIDED WARM BLANKET. CALL LIGHT WITHIN REACH.
--- NOTE | 2019-08-29 23:10 | NUR ---
ROUNDED ON pt. RESTING WITH BLANKET OVER HEAD, RESPIRATIONS REGULAR AND UNLABORED. CALL LIGHT WITHIN REACH.
--- NOTE | 2019-08-30 00:21 | NUR ---
ROUNDED ON pt. REPORTED "THE PAIN JUST WOKE ME UP" RATED 9/10 PAIN. PRN GIVEN (SEE MAR). NO FURTHER REQUESTS AT THIS TIME. CALL LIGHT WITHIN REACH.
--- NOTE | 2019-08-30 01:52 | NUR ---
ROUNDED ON pt. RESTING WITH BLANKET OVER HIS HEAD. RESPIRATIONS REGULAR AND UNLABORED. CALL LIGHT WITHIN REACH.
--- NOTE | 2019-08-30 02:30 | NUR ---
ASSESSMENT DONE. pt REPORTED 9/10 PAIN, PRN GIVEN (SEE MAR). DENIES NAUSEA AT THIS TIME. DISCUSSED BLOOD PRESSURE MEDICATIONS. NO FURTHER REQUESTS AT THIS TIME. CALL LIGHT WITHIN REACH.
--- NOTE | 2019-08-30 03:30 | NUR ---
ROUNDED ON pt. RESTING WITH EYES CLOSED, RESPIRATIONS REGULAR AND UNLABORED. CALL LIGHT WITHIN REACH.
--- NOTE | 2019-08-30 04:52 | NUR ---
pt RESTED ON AND OFF DURING SHIFT. PRN PAIN MEDS X3. ABLE TO INDEPENDENTLY SLIDE FROM BED TO BSC. IVF INFUSING. ACCU CHECKS, DID NOT REQUIRE SS INSULIN. DID NOT EAT MUCH DINNER. WOUND TO RIGHT LEG BEHIND KNEE, ALLEVYN IN PLACE. RIGHT BKA. HAS NOT USED CALL LIGHT.
--- NOTE | 2019-08-30 05:52 | NUR ---
LAB INTO DRAW. pt RATED PAIN /10. PRN PAIN MED GIVEN (SEE MAR). VITALS AND I&O RECORDED. NO FURTHER REQUESTS AT THIS TIME. CALL LIGHT WITHIN REACH.
--- NOTE | 2019-08-30 07:47 | NUR ---
MORNING ASSESSMENT DONE. RIGHT POSTERIOR KNEE DRESSING CHANGED WITH WOUND CLEANSER, METAHONEY AND 2X2 ALLEVYN, NO DRAINAGE NOTED. PATIENT RATES ABD PAIN 8/10 AND INDICATES THIS IS USUAL FOR HIM IN THE MORNING. PATIENT REPORTS HAVING A POOR APPETITE FOR BREAKFAST AND THIS IS USUAL.
--- NOTE | 2019-08-30 08:58 | NUR ---
MORNING MEDICATIONS GIVEN. PATIENT REFUSED 3u OF INSULIN DUE TO NOT EATING BREAKFAST. PATIENT DENIES WANTING NICOTINE PATCH. 1MG OF IV DILAUDID GIVEN FOR 8/10 ABD PAIN.
[2019-08-30] MEDS ORDERED: RANITIDINE HCL150 MG PO (10:06)
[2019-08-30] MEDS ORDERED: PHENADOZ25 MG PR (10:07)
[2019-08-30] MEDS ORDERED: HYOSCYAMINE0.125 M1 SL (10:08)
[2019-08-30] MEDS ORDERED: REGLAN10 MG PO (10:09)
[2019-08-30] MEDS ORDERED: ONDANSETRON ODT8 MG PO (10:09)
[2019-08-30] MEDS ORDERED: LISINOPRIL10 MG PO (10:10)
--- NOTE | 2019-08-30 10:13 | NUR ---
MED REC COMPLETE
--- NOTE | 2019-08-30 12:46 | NUR ---
PATIENT GIVEN 5MG OF PO OXYCODONE FOR 9/10 ABD PAIN. PATIENT IS HAVING BITES OF LUNCH, ENDORSES EATING SLOWLY.
--- NOTE | 2019-08-30 14:08 | NUR ---
PATIENT SLEEPING IN BED WITH COVERS OVER HEAD. FAMILY IN ROOM WITH PATIENT.
--- NOTE | 2019-08-30 14:26 | NUR ---
PT SITTING IN BED, MOTHER GLORIA AT BS. PARTIALLY EATED LUNCH ON TRAY. PT CONSISTENTLY HOLDS HIS FACE WITH BOTH HANDS AND THEN RUNS THROUGH HAIR. PT STATED HIS PAIN WAS 9. ENCOURAGED PT TO TRY TO EAT-HE SAYS IT HURTS TO EAT. SUGGESTED ENSURE, MOTHER KNODDED IN AGREEMENT. PT SAID HE WOULD ASK FOR ENSURE IF HE WANTED ANY. PT ALLOWED ME TO PRAY FOR HIM, I MENTIONED THAT I WOULD STOP BACK AGAIN. WILL FOLLOW NEEDED
--- NOTE | 2019-08-30 14:47 | NUR ---
NUTRITION CONSULT FOR POOR NUTRITIONAL INTAKE. PATIENT IN BED WITH COVERS OVER HIS HEAD. MOM IN ROOM. HE ONLY ATE A COUPLE BITES OF HIS SANDWICH FOR LUNCH. MOM STATES HE CAN ONLY EAT A TABLESPOON AT A TIME THROUGHOUT THE DAY. EVERY TIME HE EATS HIS STOMACH HURTS. THIS IS NOT A NEW CONDITION. THEY DO HAVE PROTEIN POWDER THAT MOM MIXES IN GRAVIES OR EGGS OR OTHER FOODS AT HOME - PATIENT MAY OR MAY NOT EAT IT. THEY ALSO HAVE NUTRITION DRINKS AT HOME - HE MAY OR MAY NOT DRINK THEM. I MENTIONED WE HAVE ENSURE HERE WELL. MOM APPRECIATED THE INFO. SHE HAS NO OTHER QUESTIONS OR CONCERNS AT THIS TIME. WILL REMAIN AVAIALBE IF NEEDED. CONTINUE 60 GRAM CONSISTENT CARB DIET.
--- NOTE | 2019-08-30 15:22 | NUR ---
PATIENT ADDRESSED CONCERNS ABOUT BEING WOKE UP WITH FREQUENCY. VITALS AND PAIN MEDICATION GIVEN. PLAN TO NOT DISTURB PATIENT FOR AT LEAST AN HOUR.
--- NOTE | 2019-08-30 16:33 | NUR ---
PATIENT HAS CONTINUED WITH ABDOMINAL PAIN, EXACERBATED BY ATTEMPTS TO EAT. PATIENT ALSO CONTRIBUTES PAIN TO BEING FREQUENTLY WOKE UP BY STAFF. PLAN TO BUNDLE MUCH CARE POSSIBLE.
--- NOTE | 2019-08-30 16:51 | NUR ---
DID PATIENT'S BLOOD SUGAR CHECK FOR BREAKFAST AND DINNER. PATIENT IS LAYING IN BED.
--- NOTE | 2019-08-30 19:32 | NUR ---
GIVEN REPORT FROM DAYSHIFT, PATIENT RESTING QUIETLY IN HIS ROOM, RESPIRATIONS REGULAR AND EVEN AT 16. PATIENT HAS HIS COVERS PULLED OVER HIS HEAD. CALL LIGHT IN REACH. PATIENT WANTS TO BE LEFT ALONE AT THIS TIME.
--- NOTE | 2019-08-30 20:26 | NUR ---
ANSWERED PT'S CALL LIGHT. HE IS CRYING IN PAIN. WILL CHECK ON MEDICATIONS AND RETURN SHORTLY. PT'S CALL LIGHT IS CLOSE.
--- NOTE | 2019-08-30 20:41 | NUR ---
PT CRYING COMPLAINING OF PAIN. PT HAS NOT HAD ANYTHING TO DRINK STATES HARD TO SWALLOW.
--- NOTE | 2019-08-30 21:29 | NUR ---
INFORMED OF PATIENT 06/05 Rt SIDE PAIN AND THAT HE WAS GIVEN A 0.5MG IV DILAUDID AND THAT HIS BLOOD PRESSURE WAS 177/[address] [place] SAID HE WOULD PUT IN SOME ORDERS. PATIENT RESTING QUIETL AT THIS TIME WITH COVERS OVER HIS HEAD AGAIN. CALL LIGHT IN REACH. PATIENT WOULD LIKE TO BE LEFT ALONE FOR LONG POSSIBLE UNLESS HE NEEDS US.
--- NOTE | 2019-08-30 22:17 | NUR ---
PATIENT RESTING QUIETLY ON HIS LEFT SIDE, EYES CLOSED, RESPIRATIONS REGULAR AND EVEN, CALL LIGHT IN REACH.
--- NOTE | 2019-08-30 23:17 | NUR ---
PATIENT RESTING QUIETLY, RESPIRATIONS 16, PATIENT CONTINUES TO REST WITH COVERS OVER HIS HEAD. CALL LIGHT IN REACH.
--- NOTE | 2019-08-31 00:31 | NUR ---
patient woke up and said he got about 3 hours of sleep, but then his pain just jumped to a 9/10. 0.5mg iv dilaudid given along with 5mg oxycodone and tylenol. call light in reach. patient going to try and go back to sleep.
--- NOTE | 2019-08-31 01:53 | NUR ---
PATIENT RESTING QUIETL WITH COVERS OVER HIS HEAD, RESPIRATIONS 16. CALL LIGHT IN REACH.
--- NOTE | 2019-08-31 04:02 | NUR ---
PATIENT CALLED AND WOKE UP HAVING 8/10 PAIN AND 0.5MG IV DILAUDID GIVEN AND PAIN DOWN TO 5/10. CALL LIGHT IN REACH.
--- NOTE | 2019-08-31 06:09 | NUR ---
PATIENT CONTINUES TO REST QUIETLY AT THIS TIME. BLOOD PRESSURE HAS NOT BEEN HIGH ENOUGH TO GIVE ANY OF THE PRN B/P MEDS ORDERED. PATIENT HAS ALSO NOT HAD TO VOID SINCE BEFORE 10PM. LR RUNNING AT 75 MLS AN HOUR AND PATIENT HAS EITHER BEEN ASLEEP OR CALLING FOR SOMETHING FOR PAIN. CURRENTLY RESTING WITH COVERS OVER HIS HEAD HE HAS MOST OF THE NIGHT, RESPIRAATIONS 16, LIGHTS ON AT PATIENT'S REQUEST DUE TO HIS POOR EYESIGHT. CALL LIGHT IN REACH.
--- NOTE | 2019-08-31 07:21 | NUR ---
PATIENT'S BACK OF RIGHT THIGH DRESING FELL OFF AND THE AREA WAS CLEANED AND A NEW MEDAHONEY AND ALLEVYN DRESSING PLACED. WOUND IS LOOKING MUCH BETTER THAN THE PICTURE IN THE CHART.
--- NOTE | 2019-08-31 07:39 | NUR ---
0735: Bedside report recieved from Zenon BRYANT. Pt resting in his bed with his call carmona within reach. He states he has some pain but is ok at this time.
--- NOTE | 2019-08-31 08:27 | NUR ---
PATIENT IN BED TALKING WITH THE HOSPITALIST. WASHED HANDS AND FACE. FRESH ICE WATER GIVEN. PATIENT WANTS TO TAKE SHOWER IF NOT DISCHARED TODAY.
--- NOTE | 2019-08-31 09:00 | NUR ---
PATIENT BUSY WITH STAFF. WILL RETURN LATER.
[2019-08-31] MEDS ORDERED: ERYTHROMYCIN250 MG PO (10:08)
[2019-08-31] MEDS ORDERED: FUROSEMIDE40 MG PO (10:09)
--- NOTE | 2019-08-31 11:19 | NUR ---
T/O TO [facility] TO CHANGE ERYTHROMYCIN TO 250MG CAPSULE QID FOR #112 CAPSULES.
[2019-08-31] MEDS ORDERED: LANTUS SOL100 UNIT/1 SUB-Q (11:32)
[2019-08-31] MEDS ORDERED: LISINOPRIL10 MG PO (11:32)
[2019-08-31] MEDS ORDERED: METOPROLOL TART50 MG PO (11:32)
[2019-08-31] MEDS ORDERED: RANITIDINE HCL150 MG PO (11:32)
[2019-08-31] MEDS ORDERED: REGLAN10 MG PO (11:32)
[2019-08-31] MEDS ORDERED: HUMALOG100 UNIT/2 SUB-Q (11:32)
== END 2019-08-31 11:35 | disposition home or self-care (01) ==
LOC: ED 19:20 → CCU 19:22 → MS 19:22
PROVIDERS: ADMIT Student in an Organized Health Care Education/Training Program
DX: E10.43 Type 1 diabetes mellitus with diabetic autonomic (poly)neuropathy (principal); K31.84 Gastroparesis; E10.649 Type 1 diabetes mellitus with hypoglycemia without coma; N17.9 Acute kidney failure, unspecified; M06.9 Rheumatoid arthritis, unspecified; F17.200 Nicotine dependence, unspecified, uncomplicated; G89.4 Chronic pain syndrome; E10.22 Type 1 diabetes mellitus with diabetic chronic kidney disease; I12.9 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e 4 chronic kidney disease, or unspecified chronic kidney disease; S81.801A Unspecified open wound, right lower leg, initial encounter; X58.XXXA Exposure to other specified factors, initial encounter; N18.9 Chronic kidney disease, unspecified; Z88.5 Allergy status to narcotic agent; Z89.511 Acquired absence of right leg below knee; Z79.4 Long term (current) use of insulin; Z79.899 Other long term (current) drug therapy
CPT/HCPCS: 36415; 74176; 80048; 80053; 81001; 82010; 83690; 83735; 85025; 96361; 96372; 96374; 96375; 96376; 99285-25; 99406; C9113; G0378; J1170; J1650; J1815; J2405; J2765; J3010; J7030; J7121; J7131

== ENCOUNTER 2019-11-16 10:52 | Inpatient (IN) | payer OTHER ==
[~2019-11-16] VITALS: Ht 188 cm; Wt 71.2 kg
[~2019-11-16 10:52] MED LIST changes: +BACTRIM DS TAB1 EACH PO; +ERYTHROMYCIN250 MG PO; +HYOSCYAMINE0.125 M1 SL; +LANTUS SOL100 UNIT/1 SUB-Q; +LISINOPRIL10 MG PO; +ONDANSETRON ODT8 MG PO; +PHENADOZ25 MG PR; +RANITIDINE HCL150 MG PO
--- OUTSIDE RECORDS SUMMARY | 2019-11-16 10:56 | XMS ---
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 CRITERIA MET - 6 ED Visits in 6 Months - [facility] [place] - Has Care Guidelines - History of Sepsis Dx - PDMP - [facility] [place] - 2 Visits in 30 Days CARE PROVIDERS CAMERON MENDEZ Physician [employer] 05/01/2018-Current PHONE: [phone] Ruma Slater Floor Nurse/Resolution Rep 04/12/2019-Current PHONE: [phone] Ruma Slater Primary Care 04/12/2019-Current PHONE: [phone] OPAL BROTHERS Primary Care [facility] PHONE: Unknown ROSA JASSO Primary Care Current PHONE: Unknown Guidelines Source: Eun \F\ [place] IPA Guidelines Date: 05/04/2019 Care Coordination: If pt. presents to Ed please call case management at [facility] [phone] Leandra DORMAN or Jenni Westbrook RN Case Manager.\T\[facility]; Care History Medical/Surgical 05/01/2018 [facility] - [facility] referred patient to [facility] case management team. - Further education on medications/chronic pain education is needed. - [facility] case management can be reached at [phone]. E.D. VISIT COUNT (12 MO.) [address] [place] [address] TOTAL 8 NOTE: Visits indicate total known visits. 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 - Other senior care (current) drug therapy - Vomiting, unspecified - Unspecified abdominal pain - 1 Type 1 diabetes mellitus with foot ulcer - Essential (primary) hypertension 08/28/2019 19:21 [facility] TYPE: Emergency COMPLAINT: - SOB 06/22/2019 11:47 [facility] TYPE: Emergency COMPLAINT: - ABD PAIN DIAGNOSES: - 1 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 - Upper abdominal pain, unspecified - 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 - Allergy status to narcotic agent status - Nicotine dependence, unspecified, uncomplicated - Gastroparesis - Personal history of urinary calculi - Essential (primary) hypertension 06/12/2019 11:35 [facility] TYPE: Emergency COMPLAINT: - BODY ACHES,CHILLS DIAGNOSES: - intermediate (current) use of insulin - Allergy status to narcotic agent status - 1 Type 1 diabetes mellitus without complications - Other senior care (current) drug therapy - Essential (primary) hypertension - Nicotine dependence, unspecified, uncomplicated - Upper abdominal pain, unspecified - Personal history of urinary calculi - Lower abdominal pain, unspecified 06/09/2019 11:31 [facility] TYPE: Emergency COMPLAINT: - DEHYDRATION, ABD PAIN DIAGNOSES: - intermediate (current) use of insulin - Chest pain, unspecified - Essential (primary) hypertension - Unspecified abdominal pain - Other senior care (current) drug therapy - 1 Type 1 [...] unspecified, uncomplicated - Vomiting, unspecified - 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
[2019-11-16] MEDS ORDERED: AMOX TR-K CLV1 EAC1 PO (11:18)
--- NOTE | 2019-11-16 19:29 | NUR ---
PT ARRIVED TO THE UNIT AT APPROXIMATLY 1455, ALERT AND ORIENTED X4, REQUIRES SLIGHT ASSISTANCE TO MOVE FROM GURNEY TO BED. PT CURRENTLY RATES PAIN AT 9/10, 25 MCG FENT GIVEN IV. AT APPROXIMATLY 1535 CAPRI FROM MRI ARRIVED TO TAKE PT FOR MRI, THIS RN WENT WITH PT. PT GEORGE PROCEDURE WELL, REMAINS ALERT AND ORIENTED X4. PT BACK TO ROOM 129 AT APPROXIMATLY 1638. IV SITES REMAIN INTACT, NO REDNESS OR SWELLING NOTED, FLUIDS AND FLUSHES INFUSE EASILY. PT GIVEN ADDITIONAL DOSE OF 25 MCG IV FENT AT 1710 AND 12.5 OF IV PHENERGAN FOR NAUSEA. IN THE ROOM TO SEE PT, CULTURES DONE ON ULCER ON LEFT FOOT. DISCUSSED PLAN FOR SURGERY FOR TOMORROW MORNING. PT OFFERED CLEAR LIQUIDS, PT REFUSES, STATES HE WANTS A SANDWICH, NOT AN OPTION PER DUE TO HIS GASTROPORESIS. PT GIVEN ICE CHIPS. PT GIVEN ADDITIONAL 25 MCG IV FENTANYL AT ABOUT 1830 FOR 7/10 PAIN.
--- NOTE | 2019-11-16 19:47 | NUR ---
PATIENT APPEARS TO BE SLEEPING SOUNDLY. HR 90'S, O2 100% ON ROOM AIR. RR 15. CALL LIGHT IN REACH.
--- NOTE | 2019-11-16 21:00 | NUR ---
PATIENT SLEEPING SOUNDLY. WOKE EASILY TO VOICE. REPORTS PAIN 8/10, DENIES NAUSEA AND STATES "USUALLY THEY COME TOGETHER, THE PAIN AND THE NAUSEA". PRN PAIN AND NAUSEA MEDS PROVIDED. ACCU CHECK AND SSI PER ORDER. PATIENT DENIES NEED TO VOID AT THIS TIME. IV FLUIDS PER ORDER, SITE WNL. 3+ EDEMEA NOTED ON LEFT LEG, ELEAVTED ON PILLOW. DRESSING PLACED ON MD TODAY IS CDI. SKIN ON LEG IS PALE, WARM, AND SCALING. CAP REFILL > 3 SECONDS. VS STABLE. WARM BLANKET PROVIDED. CALL LIGHT IN REACH.
--- NOTE | 2019-11-16 23:15 | NUR ---
PT SAT UP AT SIDE OF BED TO USE URINAL, ONE PERSON ASSIST REQUIRED. PT REPORTS INCREASED LEG PAIN WITH MOVEMENT THAT HE RATES 8/10. PRN PAIN MEDICATION ADMINISTERED (SEE EMAR). PT BACK IN BED, CALL LIGHT WITHIN REACH. NO FURTHER NEEDS AT THIS TIME.
--- NOTE | 2019-11-17 00:30 | NUR ---
PATIENT REPORTS PAIN 8/10, PRN MEDS PROVIDED. PATIENT DENIES NAUSEA. IV FLUIDS PER ORDER. BEDSIDE CUP EMPTIED. REMINDED PATIENT HE IS NOW NPO FOR SURGERY. 3+ EDEMA NOTED ON LEFT LOWER EXTREMITIY, UNCHANGED. DRESSING CDI. VS STABLE. PATIENT DENIED FURTHER NEEDS. CALL LIGHT IN REACH.
--- NOTE | 2019-11-17 02:25 | NUR ---
VANCO STARTED AND ACCU CHECK DONE BY CRM ANALYST. PATIENT'S BLOOD GLUCOSE 57 AT THIS TIME. VANCO MIXED IN D5, WILL RECHECK GLUCOSE IN 1 HOUR. PATIENT IS ALERT. REPORTS PAIN 10/. PRN MEDS PROVIDED. ELEVATED LEFT LEG ON PILLOW X2. PATIENT DENIES NEED TO VOID. URNAL AT BEDSIDE.
--- NOTE | 2019-11-17 03:31 | NUR ---
PATIENT APPEARED TO BE SLEEPING, WOKE WHEN RN ENTERED ROOM. REPORTS PAIN 9/10. PRN MEDS PROVIDED. PRN ACCU CHECK WITH BLOOD GLUCOSE OF 70. PATIENT REPORTS ABD CRAMPING BUT DENIES NAUSEA. CALL LIGHT IN REACH.
--- NOTE | 2019-11-17 04:31 | NUR ---
PATIENT UP TO SIT AT EDGE OF BED AND VOID IN URNAL. 600 MLS OF CLEAR YELLOW URINE NOTED. PATIENT REPORTS PAIN 8/10. PRN MEDS PROVIDED. DISCUSSED PLAN FOR THE MORNING TO PREPARE FOR PROCEDURE. PATIENT VERBALIZED UNDERSTANDING.
--- NOTE | 2019-11-17 06:13 | NUR ---
PATIENT REPORTS 9/10 PAIN AND REPORTS BLOOD GLUCOSE FEELS LOW. PRN MEDS PROVIDED. ACCU CHECK, GLUCOSE 43. NOTIFIED . IV FLUIDS SWITCHED TO D5LR FROM LR. PATIENT NPO AT THIS TIME. WILL RECHECK IN 30 MINS.
--- NOTE | 2019-11-17 06:30 | NUR ---
PRE-OP WIPE DOWN COMPLETE. FRESH GOWN AND MESH UNDERWEAR PROVIDED. PATIENT REPORTS 10/10 PAIN. PRN MEDS PROVIDED ORDERED. PAIN IS GENERALIZED. PATIENT'S MOTHER AT BEDSIDE.
--- NOTE | 2019-11-17 06:55 | NUR ---
PATIENT'S BLOOD GLUCOSE SLIGHTLY IMPROVED TO 53. AWARE. VERBAL ORDERS RECEIVED FOR D50. IN TO SEE PATIENT.
--- NOTE | 2019-11-17 07:30 | NUR ---
PATIENT SHIFT REPORT RECIEVED FROM SCHOOL PSYCHOLOGIST RN. PATIENT RESTING IN BED WITH HIS MOM AT THE BEDSIDE. OR STAFF HERE TO TAKE PATIENT TO SURGERY. CONSENT SIGNED AND IS ON THE CHART. NO OTHER NEEDS AT THIS TIME.
--- NOTE | 2019-11-17 08:00 | NUR ---
PATIENT OFF TO SURGERY. PATIENTS MOM REMAINS IN THE ROOM AND BREAKFAST ORDERED. NO OTHER NEEDS AT THIS TIME.
--- NOTE | 2019-11-17 09:35 | NUR ---
PATIENT RETURNED FROM OR AT 09. PT AWAKENS EASILY. PT LYING ON LEFT SIDE AT THIS TIME. D5 LR AT 125 ML/HR TO RESUME. PT HAS DRESSING OVER LEFT FOOT.
--- NOTE | 2019-11-17 10:00 | NUR ---
PATIENT ARRIVED BACK IN ROOM 129 FROM HIS PROCEDURE. PATIENT IS ALERT AND AWAKE AND TOLERATING ROOM AIR. BLOOD SUGAR CHECKED AND IS 89. FLUIDS RESTARTED WITH D5LR. WILL RECHECK BLOOD SUGAR. PATIENT DENIES ANY NEEDS AT THIS TIME.
--- NOTE | 2019-11-17 10:00 | NUR ---
PT SLEEPING IN BED. PT SURIGAL SITE DRESSING ON LEFT METATARSAL IS DRY/INTACT. MD ARGUETA APPLIED DRESSING TO THE FOOT, STAFF WILL MONITOR FOR DRAINAGE. ASSESSMENT COMPLETED, PATIENT COMPLAINED OF PAIN COMMUNICATED A PAIN LEVEL OF 7. SAID HIS BODY FELT LIKE IT WAS CRAMPING ALL OVER. 25MG FENTAYL GIVEN. MOTHER IS AT PT BEDSIDE. PT IS RESTING IN BED GUARDRAILS UP, CALL LIGHT WITHIN REACH. WILL CONTINUE TO MONITOR.
--- NOTE | 2019-11-17 11:45 | NUR ---
FOLLOW-UP X-RAY WERE TAKEN OF PT SUGICAL SITE. PT COMMUNICATED PAIN LEVEL AT 9 AFTER X-RAY'S WERE TAKEN. HE REPORTED HIS ENTIRE BODY FELT LIKE IT WAS CRAMPING. HE SAID THE FENTANYL WAS NOT WORKING FOR PAIN AND REQUESTED SOMETHING ELSE FOR PAIN. WAS NOTIFIED. ORDERED 5/325 HYDROCODONE PRN Q4 1-2 TABS. PT ASKED FOR MORPHINE OR DILAUDID, PT WAS TOLD HYDROCODONE WAS HIS ONLY OPTION. 25MG OF FENTANYL AND 2 TABS OF HYDROCODONE GIVEN TO PT. PT APPEARED TO TOLERATE MEDICATION, GUARDRAILS UP CALLLIGHT WITH IN REACH, MOTHER AT BEDSIDE, WILL CONTINUE TO MONITOR.
--- NOTE | 2019-11-17 14:36 | NUR ---
Pt is alert and oriented resting in bed. Pt communicates pain levelis 8. Reports pain is in his sternum area. Requested pain medication, 25mg fentanyl given. Pt was talkative, sharing about medical hx. Pt sat himself in bed without assistance to use the urinal. Pt is sitting up resting in bed, guardrails up, call light in reach will continue to monitor.
--- NOTE | 2019-11-17 16:45 | NUR ---
Pt resting sitting up in bed, mother at the bed side. Assessment completed. Dressing on LLE dry/intact. Pt reports no pain from surgical site. Pt reports generalized pain all over his body. Pt requested dinner ordered. MD ordered Pt tranfer to [facility] RM [facility]. Pt given 25mg fetanyl, 2-tabs 5/325 hydroconde at 1530. Gurdrails up, call light within reach, will continue to monitor.
--- NOTE | 2019-11-17 17:15 | NUR ---
PATIENT TRANSFERED TO [facility] ROOM 117 IN HIS BED. PATIENT TOLERATED WELL AND IS AGREEABLE TO PLAN OF CARE. PATIENTS MOM REMAINS AT THE BEDSIDE. REPORT GIVEN TO EJ BRYANT AND ALL QUESTIONS ANSWERED.
--- NOTE | 2019-11-17 17:45 | NUR ---
PT TO MED SURG ALERT AND INTERACTIVE, MOM AT BEDSIDE. EVENING MEAL DELIVERED PT SITTING UPRIGHT IN BED EATING AGREES HE IS COMFORTABLE AND HAS EVERYTHING HE NEEDS
--- NOTE | 2019-11-17 18:32 | NUR ---
PT HAS EATEN 1/2 OF HIS SANDWICH RESTING EYES CLOSED.
--- NOTE | 2019-11-17 19:57 | NUR ---
C/O 9/10 L FOOT PAIN. MEDICATED WITH NORCO 2 TABS, COOP WITH ASSESSMENT, ON ROOM AIR, IVF INFUSING. R STUMP AND L LEG ELEVATED WITH PILLOWS, DRERSSING LFOOT INTACTC
--- NOTE | 2019-11-17 20:21 | NUR ---
STILL C/O 05/05 PAIN, RASH NOTIFIED AND NEW ORDERS RECEIVED FOR DILAUDID. MEDICATED WITH INITIAL DILAUDID 1MF IV. PT AWARE OF LOWER DOSE TO BE GIVEN NEXT TIME, STATED UNDERSTANDING
--- NOTE | 2019-11-17 22:27 | NUR ---
medicated with dilaudid 1mg iv 7/10 L foot pain
--- NOTE | 2019-11-18 00:11 | NUR ---
c/o 6/10 L foot pain, medicated with 2Norco, IVF infusing, call light at hands reach, tolerating fluids/diet well.
--- NOTE | 2019-11-18 01:45 | NUR ---
c/o 8/10 L foot pain, medicated with Dilaudid 1mg IV
--- NOTE | 2019-11-18 04:12 | NUR ---
Pt reting, laying on R side, Legs elevated with pillows, RBA and LLE, LLE dressing CDI. IVF/Cefepime infusing w/o problems. Call tiffanit at bedside
--- NOTE | 2019-11-18 05:23 | NUR ---
c/o 8/10 L foot pain, medicated with 2 Wyola, elevated with pillows. No n/v, tolerating diet and liquids well.
--- NOTE | 2019-11-18 05:55 | NUR ---
Pt slept 3 hrs, On room air, IVF infusing, no c/o adverse reacftion to IV abx. 1PSBA. RBKA, LLE dressing CDI, elevate with pillows, faint pedal pulses due dressing. skin dry, flaky. Has been medicated with DIlaudid 1mg IV x3 and Collison 2 tabs 3X, with good to fair pain relief. No c/o n/v.
--- NOTE | 2019-11-18 06:48 | NUR ---
c/o l foot pain, elevated in pillows, dressing cdi. medicated with Dilaudid 1mg IV
--- NOTE | 2019-11-18 07:42 | NUR ---
REPORT RECEIVED PT RESTING IN BED AWAKE DENIES NEEDS AT THIS TIME, AGREES HE IS COMFORTABLE. FRESH H20, AT BEDSIDE PERSONAL CARE ITEMS PROVIDED.
--- NOTE | 2019-11-18 08:19 | NUR ---
PT CBG 91, HE IS REFUSING BREAKFAST STATING HE DOESN'T NORMALLY EAT BREAKFAST. DISCUSSED CBG LEVEL HE AGREES TO SOME GRAPE JUICE. PT AGREES TO REPORT ANY SYMPTOMS OF LOW SUGAR WHICH HE IS ABLE TO VERBALIZE
--- NOTE | 2019-11-18 09:30 | OR ---
[facility] [address], [place] [address] Signed DATE OF OPERATION: 11/17/2019 SURGEON: Jerome Mondragon DPM PREOPERATIVE DIAGNOSES: 1. Diabetic ulcer with infection, left foot. 2. Osteomyelitis, left 5th toe and 5th metatarsal. POSTOPERATIVE DIAGNOSES: 1. Diabetic ulcer with infection, left foot. 2. Osteomyelitis, left 5th toe and 5th metatarsal. PUBLIC HEALTH PROGRAM MANAGER SURGEON: Papo Camara DPM. ANESTHESIA: IV general. EMPLOYEE RELATIONS ASSISTANT: Varun Sanderson. SPECIMEN TO PATHOLOGY: Bone and soft tissue of left 5th toe and left 5th metatarsal, aerobic and anaerobic cultures. PROCEDURE: Debridement, left foot. DESCRIPTION OF PROCEDURE: Patient was brought to the operating room and placed on the table in the supine position. Anesthesia Department administered IV sedation after which a local block was given to the left foot using a total of 10 mL of 1:1 mixture, 2% lidocaine plain, and 0.5% ropivacaine plain. The left leg and foot were then prepped and draped in the usual sterile manner and an Esmarch was initially applied for hemostasis. The surgery immediately showed evidence of continued bleeding, the Esmarch was not effective for hemostasis and was removed within a minute or two of starting the procedure. Attention was initially directed to the left 5th toe. An ulcer was noted to the proximal web space between the 4th and 5th toes, and this showed deeper underlying necrotic tissue and the preoperative MRI had shown significant osteomyelitis within the Electronically Signed By: JEROME MONDRAGON DPM 11/18/19 0930 PATIENT NAME: NGOC COREA II OPERATIVE REPORT DATE OF : 88 REPORT #: [id number] PHYSICIAN: JEROME MONDRAGON DPM PCP: SILVIA PARISH REPORT IS CONFIDENTIAL AND NOT TO BE RELEASED WITHOUT AUTHORIZATION [facility] [address], [place] [address] Signed 5th digit. Therefore, it was deemed necessary at this stage to eliminate the 5th toe, an incision was made from the interdigital ulcer toward the plantar aspect of the foot and connecting with the ulcer to the plantar 5th metatarsal head. An incision was then made from the interdigital ulcer area extending somewhat distal on the medial 5th toe and then across the dorsum of the toe and over to the 5th metatarsal head ulcer. The soft tissues were then reflected to expose the base of the proximal phalanx, 5th digit. The toe was then disarticulated at the MTPJ and removed in toto and sent to Pathology. At this time, an incision was made on the lateral side of the foot over the 5th metatarsal extending about 5-6 cm proximally from the 5th metatarsal head ulcer to expose the majority of the 5th metatarsal. Soft tissues were then reflected and the metatarsal sectioned proximally removing 3-4 cm of the metatarsal. At the level that the bone was cut for the 5th metatarsal, the bone appeared to be solid and positively bleeding. At this time, the attention was directed to the remaining soft tissues, which showed a large amount of necrotic tissue to the plantar aspect primarily at the 5th metatarsal head ulcer area. The entire ulcer was excised and the remaining soft tissues then debrided in an effort to remove all of the necrotic soft tissue. The plantar aspect of the foot also showed a layer of necrotic tissue and purulence extending toward the mid foot under the forefoot and midfoot area, which had purulent drainage. This appeared to be superior to the plantar fascial layer. Use of hand instrumentation as well as probing to this area allowed removal of necrotic tissue without additional incision. The power irrigation was used throughout the wound site, particularly to this plantar space to irrigate and eliminate purulent drainage to this area. A total of approximately 5 L of irrigation was used. Once there was no longer purulent drainage noted and no necrotic tissue noted, the process of closure was begun. Prior to any closure the antibiotic beads containing vancomycin were placed into the deep space at the plantar aspect of the foot. Surgical sites then closed leaving the original plantar 5th metatarsal head ulcer site open where the ulcer had been excised and then the area toward the 5th toe and 5th metatarsal head was also packed with antibiotic beads as was the area over the 5th metatarsal excision site. 0.5 inch plain Nu Gauze packing then also placed within the surgical site. Dressings then applied consisting of Adaptic, dry gauze, 4 x 4's, ABD pad, flexicon, and Coban for mild compression. ESTIMATED BLOOD LOSS: Approximately 300 mL. INTRAOPERATIVE COMPLICATIONS: None. Electronically Signed By: JEROME MONDRAGON DPM 11/18/19 0930 PATIENT NAME: NGOC COREA OPERATIVE REPORT DATE OF : 88 REPORT #: [id number] PHYSICIAN: JEROME MONDRAGON DPM PCP: SILVIA PARISH REPORT IS CONFIDENTIAL AND NOT TO BE RELEASED WITHOUT AUTHORIZATION [address] [address] Signed MARCUS Rossi/MODL /[id number] Copies: ~ Electronically Signed By: JEROME MONDRAGON DPM 11/18/19 0930 PATIENT NAME: COREANGOCNaya WATSON OPERATIVE REPORT DATE OF : 88 REPORT #: [id number] PHYSICIAN: JEROME MONDRAGON DPM PCP: SILVIA PARISH REPORT IS CONFIDENTIAL AND NOT TO BE RELEASED WITHOUT AUTHORIZATION
--- NOTE | 2019-11-18 11:57 | NUR ---
PATIENT WAS AWAKE ,REFUSED BREAKFAST
--- NOTE | 2019-11-18 12:28 | NUR ---
pt requests cbg be taken states he "feels weird" blood sugar is 132 currently. pt states he feels weak and like he can hardly move, states he has never felt like this before. discussed low blood count h&h and how that effects the body. dr coyne notified of pt c/o
--- NOTE | 2019-11-18 14:04 | NUR ---
PT RESTING IN BED, MOM PRESENT IN THE ROOM. HE AGREES HE FEELS A LITTLE BETTER, BUT STILL FEELS WEAK. PT BLOOD SUGARS STAYING LOW 100'S HE IS JUST NOW EATING FOR THE FIRST TIME TODAY. REQUESTS PAIN MEDS WHEN AVAILABLE
--- NOTE | 2019-11-18 17:54 | NUR ---
PT RESTING EYES CLOSED, MOM REMAINS IN THE ROOM
--- NOTE | 2019-11-18 18:07 | NUR ---
PATIENT STILL ISNT EATING MUCH, FRESH WATER AND CALL LIGHT IN REACH
--- NOTE | 2019-11-18 19:10 | NUR ---
RECEIVED REPORT FROM ANNETTE PAGAN. pt RESTING IN BED. REPORTED 04/04 PAIN. DISCUSSED PAIN MANAGEMENT. CALL LIGHT WITHIN REACH. WHITEBOARD UPDATED.
--- NOTE | 2019-11-18 21:03 | NUR ---
ROUNDED CHARGE. PATIENT IS RESTING IN BED. PATIENTS SANDWICH PLACED IN FRIDGE PER REQUEST. PATIENT DENIES ANY FURTHER NEEDS. CALL LIGHT IN REACH.
--- NOTE | 2019-11-18 21:06 | NUR ---
pt RATED PAIN 9/10. PRN GIVEN (SEE MAR). EDUCATED ON IMPORTANCE OF STAYING ON TOP OF MEDICATION. pt VERBALIZED UNDERSTANDING AND WILL CALL WHEN MEDS ARE DUE. BLOOD SUGAR 183, 3 UNITS INSULIN DUE PER MAR, pt VOICED CONCERN ABOUT NOT FEELING WELL ENOUGH TO EAT AND HOW HIS SUGAR DROPS QUICKLY. WILL HOLD THIS DOSE OF INSULIN AND RECHECK IN 6 HOURS. ASSESSMENT DONE. IV ABX INFUSING. NO FURTHER REQUESTS AT THIS TIME. CALL LIGHT WITHIN REACH.
--- NOTE | 2019-11-18 22:33 | NUR ---
pt REPORTED 7/10 PAIN. PRN GIVEN (SEE MAR). UPDATED ON NEXT MED. CALL LIGHT WITHIN REACH.
--- NOTE | 2019-11-19 00:21 | NUR ---
CALL LIGHT ON. pt REQUESTED PAIN MEDICATION FRO 05/05 PAIN. PRN GIVEN (SEE MAR). CALL LIGHT WITHIN REACH.
--- NOTE | 2019-11-19 01:01 | NUR ---
ABX INFUSION COMPLETED, SL. pt VOIDED, 1PA. NO FURTHER REQUESTS AT THIS TIME. CALL LIGHT WITHIN REACH.
--- NOTE | 2019-11-19 02:34 | NUR ---
CHECKED BLOOD SUGAR PER ORDERS, NEEDS SS INSULIN. pt HESITANT TO TAKE. SPOKE WITH MD. MD REQUESTED THAT ORDERED SS INSULIN DOSE BE GIVEN. UPDATED ON PAIN MANAGEMENT.
--- NOTE | 2019-11-19 02:43 | NUR ---
UPDATED pt ON CONVERSATION WITH THE PHYSICIAN. pt AGREEABLE TO TAKE THE INSULIN. ADMINISTERED WITH OTHER MEDS AND PRN PAIN MED FOR 7/10 PAIN (SEE MAR). pt RESTING IN BED AFTER 1PA TO BSC AND BACK. CALL LIGHT WITHIN REACH.
--- NOTE | 2019-11-19 04:28 | NUR ---
pt REPORTED 8/10 PAIN, PRN GIVEN (SEE MAR). DISCUSSED BLOOD SUGAR MONITORING, pt DENIES S/S OF HYPOGLYCEMIA AT THIS TIME. NO REQUESTS. CALL LIGHT WITHIN REACH.
--- NOTE | 2019-11-19 06:27 | NUR ---
IN TO ASSESS PAIN. pt REPORTED 7/10 PAIN. PRN GIVEN. IV ABX INFUSING. NO REQUESTS AT THIS TIME. CALL LIGHT WITHIN REACH.
--- NOTE | 2019-11-19 06:34 | NUR ---
pt RESTED ON AND OFF. PAIN MEDS GIVEN WHEN AVAILABLE. PAIN REMAINED 7/[address] ARGUETA CHANGED DRESSING THIS AM. pt HAS HAD A POOR APPETITE. USES CALL LIGHT APPROPRIATELY.
--- NOTE | 2019-11-19 06:50 | NUR ---
ASSISTED DR ARGUETA WITH DRESSING CHANGE.
--- NOTE | 2019-11-19 08:00 | NUR ---
PATIENT RESTING IN BED. PATIENT REFUSED TO ORDER BREAKFAST. CALL LIGHT WITHIN REACH. NO OTHER NEEDS AT THIS TIME
--- NOTE | 2019-11-19 08:51 | NUR ---
PT SITTING UP IN BED AWAKE. RATES LEFT FOOT PAIN 05/05. MEDICATED WITH PRN DILAUDID. ALERT AND ORIENTED TO ALL. BOTH IV SITES FLUSH EASILY. IV ABX STARTED IN RIGHT IV. AM MEDS ADMINISTERED. PT REPORTS THAT DRESSING WAS CHANGED THIS AM BY DR. ARGUETA. DRESSING CDI. GOOD MOVEMENT OF LEGS AND TOES, BUT PT REPORTS SIGNIFICANT WEAKNESS OF LEFT LEG. REPORTS CHRONIC NEUROPATHY OF LE, SENSATION OF TOUCH TO THAT AREA LIMITED, CAP REFILL 4 SEC. MOTHER AT BEDSIDE. CALL LIGHT WITHIN REACH.
--- NOTE | 2019-11-19 09:30 | NUR ---
Spoke with Alin and his mom, Samantha. Both are well know to this RN. They live together in a handicap low income apartment. 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 Pt use a walker, wc, and has prosthesis. States he is deconditioned and having issues using his L leg due to weakness. Pt sees Dr. Whitman for kidney failure, Dr. 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 Grossman for pcp. He is scheduled for botox injections December 06 for gastroparesis. Pt is concerned IV pain meds are being stopped. Discussed with alin he will be returning to medications as scheduled at home. Discussed with Alin, I will ask Dr. Zee about medications for anxiety to go with his pain meds. Pt is not sure where he wants to dc. Would like home with Home Health, but will consider SNF if needed.
--- NOTE | 2019-11-19 10:02 | NUR ---
Patient was seen per capacity planner request due to (L) leg weakness to give him exercises to strengthen leg. Patient was given HEP before and was able to transfer independently bed-w/c.He was given a copy of HEP, educated patient how to do them and demonstrated by patient well with assist. He said he already has a copy of the HEP before and does them. Increased pain (L) leg after doing GAYLE, nurse was called to give him pain meds.
--- NOTE | 2019-11-19 10:08 | NUR ---
PATIENT RESTING IN BED. MOM AND RN IN ROOM. VITAL SIGNS AND I&O DONE. PATIENT DID NOT VOID DURING THIS PERIOD. RN NOTIFIED. CALL LIGHT WITHIN REACH. NO OTHER NEEDS AT THIS TIME
--- NOTE | 2019-11-19 11:10 | NUR ---
PT SITTING UP IN BED, VISITORS AND MOTHER AT BEDSIDE. PT CONT TO RATE LEFT FOOT PAIN 7-8/10 PAIN. HAS YET TO EAT TODAY BUT STATES SHE USUALLY DOESN'T EAT UNTIL CLOSER TO LUNCH TIME. DENIES NAUSEA OR OTHER CONCERN AT THIS TIME. DRESSING TO LEFT FOOT REMAIN CDI. CALL LIGHT WITHIN REACH.
[2019-11-19] MEDS ORDERED: LASIX40 MG PO (11:55)
[2019-11-19] MEDS ORDERED: LISINOPRIL10 MG PO (11:57)
[2019-11-19] MEDS ORDERED: REGLAN10 MG PO (11:58)
[2019-11-19] MEDS ORDERED: METOPROLOL TART50 MG PO (11:59)
[2019-11-19] MEDS ORDERED: RANITIDINE HCL150 MG PO (12:00)
--- NOTE | 2019-11-19 12:12 | NUR ---
Med rec completed.
--- NOTE | 2019-11-19 13:36 | NUR ---
PT RESTING IN BED, COVERS PULLED UP OVER HEAD AND HAD EATEN VERY LITTLE LUNCH. PT STATED HE JUST TO SLEEP. MOTHER REMAINS IN RM, THANKED ME FOR CHECKING IN. WILL FOLLOW NEEDED
--- NOTE | 2019-11-19 13:42 | NUR ---
PATIENT SITTING UP IN BED. FAMILY AND RN IN ROOM. VITAL SIGNS AND I&O DONE. PATIENT DID NOT VOID AND EAT DURING THIS PERIOD. RN NOTIFIED. ICE WATER GIVEN. CALL LIGHT WITHIN REACH. NO OTHER NEEDS AT THIS TIME
--- NOTE | 2019-11-19 13:45 | NUR ---
PT AND MOTHER EXPRESSED TO THIS RN CONCERN ABOUT DC OF IV DILAUDID. THEY ARE BOTH CONCERNED THAT PAIN WILL NOT BE CONTROLLED PROPERLY WITHOUT IT. PT REPORTS THAT EVEN IF HE WAS JUST MEDICATED THAT WHEN HE FALLS ASLEEP AND THEN WAKES UP THAT IS PAIN IS NOT TOLERABLE AND HE WANTS THE DILAUDID TO COVER THAT PAIN. MOTHER STATING THAT SATISFACTION AND COMMUNICATION WITH HOSPITAL STAFF HAS "GONE FROM A 10 TO A 6 AND WE'RE GONNA CONTINUE GOING DOWN IF SOMETHING DOESN'T CHANGE." THIS RN SPOKE WITH DR. NO IN DETAIL ABOUT PT AND MOTHER'S CONCERN. DR. NO ORDERED ONE TIME DOSE OF PO DILAUDID AND IV TORADOL BUT IS HESITANT TO ORDER ANYTHING ELSE DUE TO PT BEING ON PAIN CONTRACT WITH ANOTHER DOCTOR. THIS RN SAT WITH PATIENT AND HIS MOTHER TO LISTEN TO ALL OF THEIR CONCERNS AND EDUCATE THEM ON DR. NO'S RATIONALE FOR CHANGES TO MED ORDERS AND THE PLAN FROM HERE ON OUT. INFORMED THEM THAT WE ARE WAITING FOR CULTURE TO RETURN AND THAT WOULD LIKE PT TO BE AT BASELINE PHYSICAL ACTIVITY PRIOR TO DC FOR SAFETY REASONS. PT'S MOTHER STATES THAT SHE REFUSES TO BRING IN PT'S PROSTHETIC BECAUSE IT DOES NOT FIT HIM PROPERLY, THAT IT NEEDS TO BE REFITTED, RIGHT NOW IT IS A RISK FOR SKIN BREAKDOWN. PT AND MOTHER REPORT THAT HIS CURRENT BASELINE FOR ACTIVITY IS A SLIDE TRANSFER FROM BED OR CHAIR TO WHEELCHAIR. AFTER DISCUSSING PLANS FOR PHYSICAL THERAPY WITH PT HE STATES "I HAVE WORKED WITH HER BEFORE AND TO BE HONEST I DON'T WANT TO SEE HER FACE AGAIN. SHE JUST GIVES ME WORKSHEETS THAT I HAVE ALREADY SEEN BEFORE." MADE PLAN WITH PATIENT TO BRING HIS NORCO EVERY 4 HOURS AND LIMIT PEOPLE FROM ENTERING HIS ROOM UNECESSARILY. SIGN PLACED ON DOOR. CHARGE NURSE DANA AWARE OF SITUATION WELL WARNER LOUIE AND DR. NO. PT CURRENTLY ABLE TO TRANSFER INDEPENDENTLY FROM BED TO BSC WITH SLIDE TRANSFER, DR. NO MADE AWARE. CONVERSATION CLOSED WITH PT STATING THAT HE WOULD LIKE TO BE DISCHARGED BY 9AM TOMORROW. DR. NO AWARE.
--- NOTE | 2019-11-19 15:20 | NUR ---
PT APPEARS TO BE SLEEPING. EYES CLOSED, RESP EVEN AND UNLABORED.
--- NOTE | 2019-11-19 17:35 | NUR ---
PT MEDICATED WITH PRN NORCO, REPORTS 6/10 PAIN. DISCUSSED PLAN FOR ADMINISTERING NORCO Q4 AND ADDRESSED NEW ORDER AVAILABLE FOR PRN PO DILAUDID. PT APPEARS IN BETTER SPIRITS AT THIS TIME. DINNER ORDERED. CALL LIGHT WITHIN REACH.
--- NOTE | 2019-11-19 17:43 | NUR ---
PATIENT RESTING IN BED. VITAL SIGNS AND I&O DONE. CALL LIGHT WITHIN REACH. NO OTHER NEEDS AT THIS TIME
--- NOTE | 2019-11-19 19:24 | NUR ---
REPORT RECEIVED, PT WOULD LIKE TO BE BOTHERED LITTLE POSSIBLE. WILL GROUP CARE THIS EVENING.
--- NOTE | 2019-11-19 21:30 | NUR ---
IN ROOM TO ADMINISTER MEDICATIONS AND ASSESS PT. HE REPORT PAIN AT 8/10, ADMINISTERED NORCO. PT REFUSED FULL 3 UNITS OF INSULIN ADMINISTERED 2 UNITS PER HIS REQUEST. WE DISCUSSED WHEN HIS NEXT PAIN MEDICINE IS DUE AND PT KNOWS TO CALL IF HE NEEDS THE DILAUDID PO BEFORE THEN. CALL LIGHT IS CLOSE AND PT DENIES FURTHER NEEDS.
--- NOTE | 2019-11-20 00:29 | NUR ---
PT IS RESTING WITH EYES CLOSED, RR IS EVEN AND NONLABORED. CALL LIGHT IS CLOSE.
--- NOTE | 2019-11-20 02:19 | NUR ---
ADMINISTERED 2 NORCO FOR 8/10 PAIN. PT DENIES OTHER NEEDS AT THIS TIME. DRESSING ON L FOOT REMAINS CDI. CALL LIGHT IS CLOSE.
--- NOTE | 2019-11-20 03:59 | NUR ---
PT IS RESTING WITH EYES CLOSED, RR IS EVEN AND NONLABORED. CALL LIGHT IS WITHIN REACH.
--- NOTE | 2019-11-20 06:51 | NUR ---
IN ROOM TO ADMINISTER NORCO FOR 8/10 PAIN. PT DENIES FURTHER NEEDS AT THIS TIME. DR IS DOING A DRESSING CHANGE AT THIS TIME. PT NOT ABLE TO GET UP TO VOID QUITE YET.
--- NOTE | 2019-11-20 07:45 | NUR ---
PATIENT RESTING IN BED. CALL LIGHT WITHIN REACH.
--- NOTE | 2019-11-20 09:50 | NUR ---
Spoke with Alin. He is resting in bed. States he did not use dilauded last night. Discussed I was notified by Rn he is planning leaving today. He states he will stay if the Dr's feel there is a need for him to remain. Discussed infection, antibiotics, issues with eating, deconditioning. He states I've been here over a week. Reminded this is day 4. He states he is just so tired of being ill. He then covers his head with a blanket and begins to cry. Let him know I will return later.
--- NOTE | 2019-11-20 09:50 | NUR ---
NOTED BOTH IV SITES LEAKING. BOTH IV'S DC'D AT THIS TIME AND NEW 22G IV STARTED IN LEFT FA BY DANA CHARGE NURSE.
--- NOTE | 2019-11-20 09:50 | NUR ---
PT WORKED WITH P.T. COMPLETED A SLIDE TRANSFER INDEPENDENTLY FROM BED TO WHEELCHAIR. PT WENT TO P.T. ROOM AND DID SOME EXERCISES. PT RETURNED VERY PAINFUL AND REQUESTING PAIN MEDICATION. TRANSFERRED BACK TO BED FROM WHEELCHAIR INDEPENDENTLY. MOTHER AT BEDSIDE. CALL LIGHT WITHIN REACH.
--- NOTE | 2019-11-20 10:28 | NUR ---
PATIENT RESTING IN BED. MOM AND RN IN ROOM. VITAL SIGNS AND I&O DONE. ICE WATER GIVEN. CALL LIGHT WITHIN REACH. NO OTHER NEEDS AT THIS TIME
--- NOTE | 2019-11-20 10:30 | NUR ---
PT MEDICATED WITH PRN NORCO. ASSESSMENT COMPLETED. LEFT FOOT DRESSING CHANGED THIS AM BY DR. ARGUETA. DRESSING CDI. PT AFFECT FLAT BUT ALERT AND ORIENTED TO ALL. RATES PAIN 8/10 "ALL OVER". MOTHER AT BEDSIDE. PT AND MOTHER AWAITING ROUNDING FROM DR. NO. PT TAKES IN VERY SMALL AMOUNTS OF FOOD AND DRINK BUT MOTHER REPORTS THAT AT HOME PATIENT RARELY KEEPS ANY OF HIS FOOD DOWN DUE TO HIS GASTROPARESIS. PT HAS DENIED NAUSEA FOR THIS RN. CALL LIGHT WITHIN REACH.
--- NOTE | 2019-11-20 12:40 | NUR ---
PT APPEARS TO BE SLEEPING. EYES CLOSED, RESP EVEN AND UNLABORED.
--- NOTE | 2019-11-20 14:07 | NUR ---
M/S STAFF REQUESTED AND DR NO APPROVED OF ME TAKING PT FOR A STROLL THROUGH THE [facility]. I ARRIVED AT PTS' RM WITH WC-PT WAS SITTING ON SIDE OF BED FACING HIS MOTHER ON THE COUCH. HE SAID HE DIDN'T NEED A COOK CANDY AND DECIDED TO WAIT UNTIL HIS IV'S WERE FINISHED. EXTENDED A BLESSING, MOM THANKED ME. DR NO WAS INFORMED AND SHE THANKED ME FOR TRYING. WILL FOLLOW NEEDED
--- NOTE | 2019-11-20 14:15 | NUR ---
PT REPORTED TO THIS RN THAT DR. NO HAD TOLD HIM HE COULD GO OUTSIDE WITH HIS MOTHER. PASTOR CUMMINGS ATTEMPTED TO TAKE PT OUTSIDE BUT HE REFUSED. THIS RN OFFERED TO FIND STAFF TO ASSIST HIM OUTSIDE AND HE STATED "BUT THE DOCTOR SAID I COULD GO OUT WITH MY MOM." I EXPLAINED THAT HE WAS UNABLE TO GO OUTSIDE WITHOUT NURSING STAFF PRESENT DUE TO SAFETY REASONS. PT REFUSED TO GO OUTSIDE AT ALL AFTER THAT. PT PLACED BLANKET OVER HEAD. CALL LIGHT WITHIN REACH.
--- NOTE | 2019-11-20 14:17 | NUR ---
PATIENT IN BED WATCHING TV. MOM IN ROOM. VITAL SIGNS AND I&O DONE. HIGH BLOOD PRESSURE. RN NOTIFIED. CALL LIGHT WITHIN REACH. NO OTHER NEEDS AT THIS TIME
--- NOTE | 2019-11-20 14:43 | NUR ---
Returned to speak with Alin. He is sleeping with a blanket over his head. Not awakend.
--- NOTE | 2019-11-20 15:40 | PATH ---
[facility] [address], [place] [address] Signed SPECIMEN(S): A FIFTH DIGIT, LEFT FOOT SPECIMEN(S): B LEFT FIFTH METATARSAL SPECIMEN SOURCE: A. FIFTH DIGIT, LEFT FOOT B. LEFT FIFTH METATARSAL CLINICAL HISTORY: Left diabetic foot ulcer, fifth digit. FINAL PATHOLOGIC DIAGNOSIS: A. Fifth digit, left foot, amputation: - Acute osteomyelitis with overlying soft tissue abscess formation and skin ulceration. - Soft tissue margin with subcutaneous acute inflammation, abscess formation and tissue necrosis. B. Fifth metatarsal, left foot, excision: - Acute osteomyelitis. - Proximal bony margin negative for acute osteomyelitis. NAL:cml:[id number] MICROSCOPIC EXAMINATION: Histologic sections of all submitted blocks are examined by light microscopy. These findings, together with the gross examination, support the pathologic diagnosis. GROSS DESCRIPTION: Two specimens are received in two containers, labeled "AI." A. The specimen, labeled "AI, fifth digit, left foot," is received in formalin and consists of fifth toe that measures 4.2 x 2.2 x 1.5 cm. The level of the amputation is within the MTP joint. Distal skin shows dark brown, hard, mummified defect that measures 1.6 x 0.6 cm. The skin and bone surgical margins are inked. Specimen is perpendicularly sectioned through the previously described defect and upon sectioning shows pink-celeste, soft underlying bone. Specimen is left for decalcification in Decal Stat prior processing. Cassette summary: (A1) Skin and bone surgical margins, shave (A2) Toe, perpendicular section. B. The specimen, labeled "AI, left fifth metatarsal," is received in formalin and consists of metatarsal bone that measures 3.5 x 1.2 x 0.6 cm. The PATIENT NAME: NGOC COREA II PATHOLOGY DATE OF : 88 REPORT #: [id number] PHYSICIAN: KARLENE PATHOLOGY PCP: [facility] REPORT IS CONFIDENTIAL AND NOT TO BE RELEASED WITHOUT AUTHORIZATION [facility] [address], [place] [address] Signed cartilage on the metatarsal head is yellow-bond, smooth and partially disrupted. Resection margins are inked and specimen is sectioned perpendicularly. Sectioning through the specimen shows no grossly visible abnormalities. Specimen is left for decalcification in Decal Stat prior processing. Mushroom Grower sections, including the proximal bony margin (larger piece) and mid portion of metatarsal (smaller piece) are submitted in cassette (B1). JS (under the direct supervision of a pathologist) PERFORMING LABORATORY: The technical component was performed by [facility], [address] [place] [id number] (Hyster Machine Operator: Shannon Keenan MD; CLIA# [id number]). [facility], [address] [place] [id number] (CLIA# [id number]). Diagnostician: Kenzie Greenwood MD Pathologist Electronically Signed 11/20/2019 Copies: ~ PATIENT NAME: NGOC COREA RAYMOND PATHOLOGY DATE OF : 88 REPORT #: [id number] PHYSICIAN: KARLENE MAGALLANES PCP: [facility] REPORT IS CONFIDENTIAL AND NOT TO BE RELEASED WITHOUT AUTHORIZATION
--- NOTE | 2019-11-20 16:20 | NUR ---
PT REQUESTING "SOMETHING FOR ANXIETY". MEDICATED WITH PRN NOROC AND ATIVAN AT THIS TIME. STATES HE DOESN'T WANT TO BE BOTHERED. PULLS BLANKETS OVER HEAD. CALL LIGHT WITHIN REACH.
--- NOTE | 2019-11-20 18:11 | NUR ---
ASSISTED PATIENT BACK TO BED FROM COMMODE. VOIDED AND HAD BM. PATIENT REQUESTED PAIN MEDS AND I NOTIFIED NURSE ANH.
--- NOTE | 2019-11-20 19:15 | NUR ---
RECEIVED REPORT ON PT AT NURSES STATION PT IS UPSET AT THIS TIME. SEE ANH RN'S NOTE.
--- NOTE | 2019-11-20 19:54 | NUR ---
ENTERED ROOM AT APPROX 1745 TO UPDATE PT ON PLAN OF CARE AND CHANGES MADE TO ORDERS BY DR. LOPEZ. THIS RN SAT WITH PT AND DISCUSSED THE MEDICATION CHANGES MADE TO HIS CHART. AT THIS TIME PT BEGAN SOBBING AND CRYING OUT "WHY!? WHY IS THIS HAPPENING TO ME?? I DONT' WANT TO DO THIS ANYMORE! WHY WON'T ANYONE LISTEN TO ME?" ASKED PATIENT TO ELABORATE, DID HE NOT WANT TO MOVE FORWARD WITH TREATMENT? DID HE WANT TO DISCUSS HOSPICE? PT STATED HE WOULD LIKE TO SPEAK TO HIS MOTHER. THIS RN CONTACTED PT'S MOTHER GLORIA AND EXPLAINED THE SITUATION TO HER. SHE STATED SHE WOULD BE UNABLE TO COME IN TO SEE PATIENT NINO BUT WAS AGREEABLE TO SPEAKING WITH HIM ON THE PHONE. AFTER THEIR INTERACTION HIS MOTHER CONTACTED THIS RN AND WE SPOKE FOR APPROX 20 ABOUT THE PATIENT'S CONCERNS AND HIS CURRENT SITUATION. HIS MOTHER STRESSED THAT SHE FELT PATIENT COULD BENEFIT FROM SOMETHING FOR ANXIETY OR SOMETHING TO HELP HIM SLEEP SHE FELT THAT HE WAS TOO AGITATED TO THINK CLEARLY AT THIS TIME. THIS RN NOTIFIED DR. LOPEZ OF THE SITUATION AND EXPRESSED THAT I FELT IT COULD BE BENEFICIAL FOR HIM TO SPEAK TO THE PATIENT DIRECTLY. DR. LOPEZ STATES HE WILL BE BY LATER TO SEE PT. PT CURRENTLY IN BED ROCKING BACK AND FORTH CRYING REQUESTING SOMETHING TO "CALM HIM DOWN" STATES "I FEEL LIKE I'M GONNA CRAWL OUT OF MY SKIN!" BOTH DAY AND CENTRIFUGAL DRIER OPERATOR CHARGE NURSES DANA AND ERENDIRA MADE AWARE OF THE SITUATION WELL ONCOMING NURSE CELY.
--- NOTE | 2019-11-20 21:10 | NUR ---
ADMINISTERED MEDICATIONS AND ASSESSED PT. HE REPORTS PAIN AT 10/10 ADMINISTERED NORCO. HE IS NO LONGER CRYING AND UPSET. GAVE HIM A SANDWICH ALONG WITH HIS LANTUS AND PT WAS NERVOUS ABOUT HIS BS DROPPING. HE WOULD LIKE TO BE CHECKED AT 2AM JUST TO BE SAFE. PT HAD IV ABX INFUSING THAT WAS NOT COMPATABLE WITH IV FLUID THEREFORE THE BOLUS GOT STARTED LATER. [facility] STARTED A 2ND IV AND ABLE TO START ROCEPHIN WELL. PT DENIES FURTHER NEEDS AT THIS TIME. CALL LIGHT IS CLOSE.
--- NOTE | 2019-11-20 22:58 | NUR ---
PT MOSTLY SLEEPING, CHANGED IV FLUIDS TO LEFT IV BOLUS COMPLETE, IV IN R SIDE NOT PATENT. WILL PULL WHEN PT MORE AWAKE.
--- NOTE | 2019-11-20 23:30 | NUR ---
ENTERED PT'S ROOM TO SWITCH COMPLETED IV ABX BACK TO IV FLUIDS. ASSISTED PT TO BSC. HE WILL CALL WHEN HE IS DONE. CALL LIGHT IS CLOSE.
--- NOTE | 2019-11-21 | NUR ---
IV STARTED LEAKING AGAIN. IT WAS IN HIS HAND WHICH HE HAD TO USE TO TRANSFER TO THE BSC. NEW IV STARTED BY DAY WORKER IN FOREARM AND IV FLUID STARTED AGAIN.
--- NOTE | 2019-11-21 00:20 | NUR ---
pt C/O -05/05 PAIN IN "THE NORMAL GUT AREA". PRN MEDICATION ADMINISTERED. pt DENIES ADDITIONAL NEEDS AT THIS TIME. IVF INFUSING WNL ORDERED. CALL LIGHT IN REACH. LIGHTS OFF IN ROOM.
--- NOTE | 2019-11-21 01:53 | NUR ---
CALL LIGHT ANSWERED. SBA TO THE BEDSIDE COMMODE AND BACK TO BED. BED LINEN CHANGED. WARM BLANKET PROVIDED.
--- NOTE | 2019-11-21 02:27 | NUR ---
PT IS RESTING WITH EYES CLOSED, RR IS EVEN AND NONLABORED. CALL LIGHT IS CLOSE.
--- NOTE | 2019-11-21 03:00 | NUR ---
ANSWERED CALL LIGHT. SBA TO PATIENT GETTING BACK TO BED FROM BEDSIDE COMMODE. NO OTHER NEEDS THIS TIME.
--- NOTE | 2019-11-21 04:38 | NUR ---
ENTERED PT'S ROOM AND HE HAD BLANKET OVER HIS HEAD, RR IS EVEN AND NONLABORED. CALL LIGHT IS CLOSE.
--- NOTE | 2019-11-21 06:00 | NUR ---
ADMINISTERED NORCO FOR 8/10 PAIN. I&O'S ENTERED. PT HAS HAD LOOSE BMS WHEN URINATING AND THEY WERE UNMEASURABLE. VISTARIL ADMINISTERED FOR ANXIETY. PT DENIES FURTHER NEEDS, CALL LIGHT IS CLOSE.
--- NOTE | 2019-11-21 06:58 | NUR ---
PT WOULD LIKE TO HOLD REGLAN UNTIL HE EATS LATER, HE STATES HE DOES NOT EAT BREAKFAST.
--- NOTE | 2019-11-21 07:45 | NUR ---
0713: Report recieved from Radha BRYANT. Pt sleeping at this time, call carmona within reach.
--- NOTE | 2019-11-21 08:55 | NUR ---
PT STATES HE HAS SOME CRAMPING PAIN WHICH HE IS UNABLE TO STATE WHERE IT IS AT. HE STATES HE DID HAVE SOME PAIN MEDICATION BY THE PRIOR SHIFT AND THAT THE PAIN IS ACCEPTABLE AT THIS TIME. WILL CONTINUE TO MONITOR. DR ARGUETA CHANGED THE LEFT FOOT DRESSING THIS AM AND THE DRESSING IS CDI AT THIS TIME. PT FELL BACK TO SLEEP DURING THIS ASSESSMENT. CALL BAGLEY WITHIN REACH.
--- NOTE | 2019-11-21 10:53 | NUR ---
1045: BLOOD TRANSFUSION STARTED ORDERED.
--- NOTE | 2019-11-21 12:03 | NUR ---
Blood transfusion continues without any difficulty. Pt now sitting up in his bed eating lunch. He states his pain level is now a 6 which is an improvment. Will continue to monitor.
--- NOTE | 2019-11-21 12:21 | NUR ---
MD made aware of plt count in morning rounding report.
--- NOTE | 2019-11-21 12:45 | NUR ---
In to room and visited with pt and his mom. Discussed the difference between accute care, palliative care, and hospice. Pt discussed converstation he had with Dr. Whitman stating he has 5 years to live if everything goes well, 6-9 months if he does not follow treatment plan. Dr. Rosas in to speak with Alin, pt states he is going home when his 2u of PRBC are in. Dr. Rosas explained potential problems and alin states understanding, but insist he wants to go home as he has met the original goals discussed of eating, drinking, [address] Rosas updated his kidney labs are high and he would like those to return to baseline. Pt plans on dc after blood. Follow up appt scheduled with Dr. Grossman by [facility], and new patient appt scheduled with Dr. Emmanuel Saavedra at pt's request as he wishes to change physicians. Mom will change his dressings. Pt will dc per private car.
--- NOTE | 2019-11-21 13:25 | NUR ---
1307: SECOND UNIT OF BLOOD STARTED ORDERED. 1322: NO SIGNS OF REACTION NOTED, IV INFUSION RATE INCREASED. SEE BLOOD TRANSFUSION RECORD.
--- NOTE | 2019-11-21 14:27 | NUR ---
BLOOD TRANSFUSION CONTINUES RUNNING WITHOUT DIFFICULTY. PT NOW SPEAKING WITH DR LOPEZ.
[2019-11-21] MEDS ORDERED: METOPROLOL TART50 MG PO (14:39)
--- NOTE | 2019-11-21 14:39 | NUR ---
SPOKE WITH OFFICE, TO OBTAIN FOLLOW UP APPOINTMENT AND DRESSING CARE INSTRUCTIONS.
[2019-11-21] MEDS ORDERED: RANITIDINE HCL150 MG PO (14:40)
[2019-11-21] MEDS ORDERED: HYDROXYZINE PAM25 MG PO (14:40)
[2019-11-21] MEDS ORDERED: CEFPODOXIME PR200 MG PO (14:41)
--- NOTE | 2019-11-21 14:45 | NUR ---
PT AND HIS MOTHER SPEAKING WITH GILBERT BRYANT THE SAWDUST MACHINE OPERATOR AT THIS TIME.
--- NOTE | 2019-11-21 15:57 | NUR ---
Dr Mondragon's office was called and notified that the pt was discharged and that the pt is aware that he will need dressing changes. Dr Mondragon's office is aware that the pt is expecting a call with the needed orders and his contact information was left with the office. Phone number .
== END 2019-11-21 15:55 | disposition home or self-care (01) | DRG 617 ==
LOC: ED 10:52 → CCU 14:51 → MS 11-17 17:17
PROVIDERS: Podiatrist Foot Surgery; ADMIT Internal Medicine
PROC: 0QBP0ZZ Excision of Left Metatarsal, Open Approach (ICD-10-PCS; 2019-11-17)
PROC: 0Y6Y0Z0 Detachment at Left 5th Toe, Complete, Open Approach (ICD-10-PCS; principal; 2019-11-17 08:00)
DX: E10.621 Type 1 diabetes mellitus with foot ulcer (principal); M86.8X7 Other osteomyelitis, ankle and foot; L97.529 Non-pressure chronic ulcer of other part of left foot with unspecified severity; E10.69 Type 1 diabetes mellitus with other specified complication; E10.22 Type 1 diabetes mellitus with diabetic chronic kidney disease; I12.9 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e 4 chronic kidney disease, or unspecified chronic kidney disease; N18.3 Chronic kidney disease, stage 3 (moderate); N17.9 Acute kidney failure, unspecified; E10.649 Type 1 diabetes mellitus with hypoglycemia without coma; G89.4 Chronic pain syndrome; D64.9 Anemia, unspecified; F17.200 Nicotine dependence, unspecified, uncomplicated; R26.2 Difficulty in walking, not elsewhere classified; E10.43 Type 1 diabetes mellitus with diabetic autonomic (poly)neuropathy; K31.84 Gastroparesis; F41.9 Anxiety disorder, unspecified; Z88.5 Allergy status to narcotic agent; Z87.442 Personal history of urinary calculi; Z89.511 Acquired absence of right leg below knee; Z79.4 Long term (current) use of insulin; Z79.899 Other long term (current) drug therapy; Z79.891 Long term (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
CPT/HCPCS: 01480; 36415; 71045; 73630; 73721; 80048; 80053; 80202; 83036; 83540; 83605; 84466; 85025; 86850; 86900; 86901; 86920; 96361; 96365; 96375; 97162; 97166; 99285-25; 99406; C1713; C9113; J0692; J0696; J1170; J1815; J1885; J2250; J2270; J2405; J2550; J2704; J2795; J3010; J3370; J7030; J7060; J7121; Q0177

== ENCOUNTER 2020-01-05 21:15 | Emergency (ER) | payer OTHER ==
[~2020-01-05] VITALS: Ht 188 cm; Wt 71.4 kg
[~2020-01-05 21:15] MED LIST changes: +AMOX TR-K CLV1 EAC1 PO; +CEFPODOXIME PR200 MG PO; +HYDROXYZINE PAM25 MG PO
--- OUTSIDE RECORDS SUMMARY | 2020-01-05 21:18 | XMS ---
PreManage Notification: [facility] COREA Security Properties Supervisor Events 1 event(s) in the past 18 months Most recent security events: Elopement at [facility] 04/01/2019 14:50 - Other Details: PATIENT LEFT AMA. CRITERIA MET - [facility] - Has Care Guidelines - History of Sepsis Dx - PDMP CARE PROVIDERS CAMERON MENDEZ Physician 05/01/2018-Current PHONE: [phone] Ruma Slater Communications Assistant/Education Site Manager 04/12/2019-Current PHONE: [phone] Guidelines Source: [place] \[place]\ [place] IPA Guidelines Date: 05/04/2019 Care Coordination: If pt. presents to Ed please call case management at [facility] [phone] Leandra DORAMN or Jenni Westbrook RN Case Manager.\T\nbsp; Care History Medical/Surgical 05/01/2018 [facility] - CHW referred patient to [facility] case management team. - Further education on medications/chronic pain education is needed. - [facility] case management can be reached at [phone]. EDuy VISIT COUNT (12 MO.) 9 [facility] TOTAL 9 NOTE: Visits indicate total known visits. ED/UCC VISIT TRACKING (12 MO.) 01/05/2020 21:16 [facility] [place] TYPE: Emergency COMPLAINT: - BLOOD SUGAR ISSUE 11/16/2019 10:53 [facility] [place] TYPE: Emergency COMPLAINT: - PAIN, WEAKNESS 10/29/2019 16:56 [facility] [place] TYPE: Emergency COMPLAINT: - PAIN, POSS INFECTION IN LEFT LEG NON INJURY DIAGNOSES: - Nicotine dependence, unspecified, uncomplicated - Allergy status to narcotic agent status - Type 1 diabetes mellitus with foot ulcer - skilled nursing (current) use of insulin - Non-pressure chronic ulcer of other part of left foot with un - 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 - Vomiting, unspecified - Unspecified abdominal pain - Type 1 diabetes mellitus with foot ulcer - Essential (primary) hypertension 08/28/2019 19:21 [facility] [place] TYPE: Emergency COMPLAINT: - SOB 06/22/2019 11:47 [facility] [place] TYPE: Emergency COMPLAINT: - ABD PAIN DIAGNOSES: - 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 - Upper abdominal pain, unspecified - 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 - Allergy status to narcotic agent status - Nicotine dependence, unspecified, uncomplicated - Gastroparesis - Personal history of urinary calculi - Essential (primary) hypertension 06/12/2019 11:35 [facility] [place] TYPE: Emergency COMPLAINT: - BODY ACHES,CHILLS DIAGNOSES: - skilled nursing (current) use of insulin - Allergy status to narcotic agent status - Type 1 diabetes mellitus without complications - Other alf (current) drug therapy - Essential (primary) hypertension - Nicotine dependence, unspecified, uncomplicated - Upper abdominal pain, unspecified - Personal history of urinary calculi - Lower abdominal pain, unspecified 06/09/2019 11:31 [facility] [place] TYPE: Emergency COMPLAINT: - DEHYDRATION, ABD PAIN DIAGNOSES: - termite inspector (current) use of insulin - Chest pain, unspecified - Essential (primary) hypertension - Unspecified abdominal pain - Other alf (current) drug therapy - Type 1 diabetes mellitus with hyperglycemia - Allergy status to narcotic agent status - Nicotine dependence, unspecified, uncomplicated - Other specified abnormalities of plasma proteins - Personal history of urinary calculi 04/01/2019 14:50 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 - Gastroparesis - Essential (primary) hypertension - Rheumatoid arthritis, unspecified - Allergy status to narcotic agent status - Personal history of urinary calculi - Nicotine dependence, unspecified, uncomplicated - Other alf (current) drug therapy - Acquired absence of right leg below knee INPATIENT VISIT TRACKING (12 MO.) 11/16/2019 14:51 [facility] [place] TYPE: Medical Surgical COMPLAINT: - DIABETIC FOOT WOUND, HYPOGLYCEMIA DIAGNOSES: - 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 - Difficulty in walking, not elsewhere classified - 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 - Anemia, unspecified - termite inspector (current) use of insulin - Other alf (current) drug therapy - Chronic pain syndrome - Type 1 diabetes mellitus with other specified complication - 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 - Personal history of urinary calculi - Other osteomyelitis, ankle and foot - Acute kidney failure, unspecified - 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 - skilled nursing (current) use of insulin - Acute kidney failure, unspecified - Personal history of urinary calculi - Anxiety disorder, unspecified - Gastroparesis - Type 1 diabetes mellitus with other specified complication - Other osteomyelitis, ankle and foot - Anemia, unspecified - skilled nursing (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 - Nicotine dependence, unspecified, uncomplicated - Nicotine dependence, unspecified, uncomplicated - Acquired absence of right leg below knee - 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 - Allergy status to narcotic agent status - Anxiety disorder, unspecified - Gastroparesis - Type 1 diabetes mellitus with hypoglycemia without coma - Type 1 diabetes mellitus with hypoglycemia without coma - Type 1 diabetes mellitus with foot ulcer - Non-pressure chronic ulcer of other part of left foot with un - Difficulty in walking, not elsewhere classified - Chronic kidney disease, stage 3 (moderate) - Allergy status to narcotic agent status - Chronic pain syndrome - Type 1 diabetes mellitus with diabetic chronic kidney disease - termite inspector (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 - Acquired absence of right leg below knee - Type 1 diabetes mellitus with diabetic chronic kidney disease - Chronic kidney disease, stage 3 (moderate) - Non-pressure chronic ulcer of other part of left foot with un 08/28/2019 19:22 [facility] [place] TYPE: Observation COMPLAINT: - INTRACTABLE N/V TRANSIENT HYPOGLYCEMIA DIAGNOSES: - Type 1 diabetes mellitus with hypoglycemia without coma - Other alf (current) drug therapy - Allergy status to narcotic agent status - Exposure to other specified factors, initial encounter - 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
[2020-01-05] MEDS ORDERED: LYRICA100 MG PO (21:52)
[2020-01-05] MEDS ORDERED: METOPROLOL SUCC50 MG PO (21:54)
[2020-01-05] MEDS ORDERED: LASIX40 MG PO (21:55)
[2020-01-05] MEDS ORDERED: LISINOPRIL10 MG PO (21:56)
--- NOTE | 2020-01-07 21:41 | EKG ---
[facility] [address] [place] [address] Signed Sinus tachycardia Possible Anterior infarct (cited on or before 29-OCT-2019) Abnormal ECG When compared with ECG of 29-OCT-2019 19:03, No significant change was found Confirmed by PINO LOPEZ MD ([id number]) on 01/07/2020 9:40:55 PM Electronically Signed By: PINO LOPEZ MD 01/07/20 2141 PATIENT NAME: COREANGOC II Electrocardiogram DATE OF : 88 PHYSICIAN: PINO LOPEZ MD REPORT #: [id number] REPORT IS CONFIDENTIAL AND NOT TO BE RELEASED WITHOUT AUTHORIZATION
== END 2020-01-06 01:46 | disposition short-term general hospital (02) ==
LOC: ED 21:15
DX: E10.10 Type 1 diabetes mellitus with ketoacidosis without coma (principal); N17.9 Acute kidney failure, unspecified; E87.5 Hyperkalemia; D72.829 Elevated white blood cell count, unspecified; I10 Essential (primary) hypertension; M06.9 Rheumatoid arthritis, unspecified; E10.43 Type 1 diabetes mellitus with diabetic autonomic (poly)neuropathy; K31.84 Gastroparesis; F17.200 Nicotine dependence, unspecified, uncomplicated; Z87.442 Personal history of urinary calculi; Z89.021 Acquired absence of right finger(s); Z89.511 Acquired absence of right leg below knee; Z88.5 Allergy status to narcotic agent; Z79.899 Other long term (current) drug therapy
CPT/HCPCS: 51702; 71045; 80053; 81001; 82010; 82800; 83605; 85025; 87088; 93005; 93010; 99285-25; J0696; J1815; J2060; J2405; J3370; J7030

== ENCOUNTER 2020-01-14 02:49 | Observation (INO) | payer OTHER ==
[~2020-01-14] VITALS: Ht 188 cm; Wt 68.0 kg
--- OUTSIDE RECORDS SUMMARY | ~2020-01-14 | XMS | Encounter Summary ---
Demographics + + + | Address | [address] | | | [place] [address] | + + + | Home Phone | | + + + | Preferred Language | Unknown | + + + | Marital Status | Single | + + + | Restorationist Affiliation | NON | + + + [...] | Samantha Ramos | ECON | [address] | | | | | [place], [place] | | | | | [address] | | + + + + + Care Team Providers + +------+ + | Care Motorized Squad Sergeant Name | Role | Phone | + +------+ + PCP | Unavailable | + +------+ + Encounter Details +--------+ + + + + | Date | Type | Department | Care Team | Description | +--------+ + + + + | 09/30/ | [facility] | | Letter, Clinic | Letters | | 2004 | scribed | | | | +--------+ [...] as of this encounter Progress Notes Interface, District Resource Officer In - 04/25/2005 12:43 AM PDT [id number] 09/30/2004 09/30/2003 [id number] NAHOMY Durbin [facility] [address] [place], [place] [id number] or September 30, 2004 Neri Mojica M.D. [address] [place] [address] RE: BROOKS MARQUEZ II MR #: [id number] Dear Dr. Mojica: Diagnoses: 1. Type 1 diabetes. 2. Currently poor control. 3. Poor compliance. I reviewed Brooks Ogden in our Pediatric Endocrinology Clinic for the first time today. Alin is a 13-year 77-zawnc-wdt boy who was diagnosed with type 1 diabetes in April 2002, presenting with weight loss, polyuria, and polydipsia. Since Brooks was diagnosed, he has been mainly under your care for his diabetes, although he has been seen once at [facility]. His control has generally been very poor, and he has had 3 episodes of diabetic ketoacidosis, the last being in July 2004. At this episode, he was admitted to [facility] with moderate DKA, initial bicarbonate of 8. Alin freely admits that his compliance with diabetic regimen that he has been taught has not been good. He says that he sometimes has omitted as much as 3 or 4 shots a week. At present, he admits to omitting around 1 shot a week, although I suspect this number is still significantly higher. His current insulin regimen is a basal bolus regime with 70 units of Lantus in the morning, and Humalog at a ratio of 1 unit for every 10 g of carbohydrate with meals and a correction factor of 1 unit for every 50 blood sugars above 200. In clinic today, Alin was seen by both our diabetes nurse educator and our dietitian. Both he and his mother were reeducated in carbohydrate counseling, and it was clear that Alin was significantly on the dosing himself with Humalog for the amount of food he was eating. His blood sugars have been running in the 400 range mainly, and he has not been writing them down. He reports no recent episodes of hypoglycemia. I could not elicit any history of a severe episode of hypoglycemia which may account for Alin's apparent reluctance to give himself enough insulin. Alin's general health has actually been quite good. He has a history of a fractured collar bone and a fractured fingertip, but has otherwise had no other illnesses or operation. Full review of systems was negative apart from headaches when his blood sugars are particularly high. Family and social history: Alin lives with his mother and his new step-father and brother in the [facility]. Though there is strong family history on the mother's side of type 2 diabetes. Alin's 13-year-old brother is in good health. Alin is currently in the freshman year at high school. He reports no major problems at school. Examination findings: Alin was a well-looking and well-grown young man. His height was 173.6 cm which was just below the 75th percentile, and his height was between 75th and 90th percentile at 69.9 kg. Blood pressure was 116/64, and heart rate was 90. He had some generalized dry skin in the arm area, otherwise there were no significant skin changes. There was no anemia, cyanosis, clubbing, jaundice, or lymphadenopathy. Head, eyes, ears, nose, and throat showed no abnormality apart from some mild tonsillomegaly. Neck was supple with no thyromegaly. Cardiovascular examination: Heart sounds were present with no murmur. Normal rate and rhythm. Respiratory examination: Chest was clear to auscultation. Abdominal examination: Abdomen was soft and nontender with no masses or organomegaly. Neurologic examination: Pupils were equal and reactive to light and accommodation. Power, tone, coordination, and reflexes were grossly normal. Injection site: Alin has been giving all his shots into his abdomen. This did show some mild lumpiness on both sides. Extremities were warm and well perfused. Normal sensation. Summary: Alin is a 13-year 99-itxfo-mbm boy with very poor diabetes control, secondary most likely to poor compliance. He was accompanied in clinic today by his mother, who seems committed to helping to improve his control. My recommendations are as follows: 1. For the moment, Alin should stay on his current dose of insulin, and each dose should be supervised by his mother when possible. Alin should check his blood sugars 4 times a day, and these numbers should be documented in a log book. 2. I have requested the family call me in 5 days' time to report the results of these blood tests. At that stage, we will adjust his insulin accordingly, hopefully knowing that the shots have been given and we can make reasonable adjustments. 3. I have checked Alin's thyroid function tests in clinic today. 4. Alin and his mother were reeducated with respect to carbohydrate counting, management of hypoglycemia, and other basic aspects of diabetes. 5. I have arranged to see Alin again in 2 months' time, and he will also be seen again by our diabetes nurse educator. Many thanks for this referral. Please do not hesitate to call if you have any questions or concerns. Yours sincerely, Ashanti Roque M.D. [facility] / [id number] / [id number] / [id number] / documented i n this encounter Plan of Treatment +--------+---------+ + + + | Date | Type | Specialty | Care Team | Description | +--------+---------+ + + + | 01/24/ | Office | Surgery | Neri Steven MD | | | 2019 | Visit | | [address] | | | | | | [place], | | | | | | [place] [address] | | | | | | [phone] | | | | | | | | +--------+---------+ + + + documented as of this encounter Visit Diagnoses Not on filedocumented in this encounter"
--- OUTSIDE RECORDS SUMMARY | ~2020-01-14 | XMS | Encounter Summary ---
Demographics + + + | Address | [address] | | | [place] [address] | + + + | Home Phone | | + + + | Preferred Language | Unknown | + + + | Marital Status | Single | + + + | Mormon Affiliation | NON | + + + | Race | White | + + + | Ethnic Group | Not or | + + + Author + + + | Author | [facility] | + + + | Organization | [facility] | + + + | Address | Unknown | + + + | Phone | Unavailable | + + + Support + + + + + | Name | Relationship | Address | Phone | + + + + + | Samantha Ramos | ECON | [address] # | | | | | [place] | | | | | [address] | | + + + + + Care Team Providers + +------+ + | Care Global Regulatory Lead Name | Role | Phone | + +------+ + PCP | Unavailable | + +------+ + Encounter Details +--------+ + + + + | Date | Type | Department | Care Team | Description | +--------+ + + + + | 09/30/ | Office | [facility] | Clinic, Pediatric | Progress Note | | 2005 | Visit-Trans | COLD STORAGE SUPERVISOR | Endocrinology | | | | cribed [...] as of this encounter Progress Notes Interface, Finisher Map And Chart In - 04/25/2005 12:43 AM PDT [id number] NAHOMY RAYMOND BROOKS [facility] Date: 09/30/2004 [...] eats. DENISSE Carr, CNSD, LD AT / [id number] / [id number] / [id number] / documented i n this encounter Plan of Treatment +--------+---------+ + + + | Date | Type | Specialty | Care Team | Description | +--------+---------+ + + + | 01/24/ | Office | Surgery | Neri Steven MD | | | 2019 | Visit | | [address] | | | | | | [place], | | | | | | [place] [address] | | | | | | [phone] | | | | | | | | +--------+---------+ + + + documented as of this encounter Visit Diagnoses Not on filedocumented in this encounter"
--- OUTSIDE RECORDS SUMMARY | ~2020-01-14 | XMS | Encounter Summary ---
Demographics + + + | Address | [address] | | | [place] [address] | + + + | Home Phone | | + + + | Preferred Language | Unknown | + + + | Marital Status | Single | + + + | Episcopalian Affiliation | Unknown | + + + | Race | Unknown | + + + | Ethnic Group | Unknown | + + + Author + + + | Author | [facility] | | | and [place] | + + + | Organization | [facility] | | | and [place] | + + + | Address | Unknown | + + + | Phone | Unavailable | + + + Support + + + + + | Name | Relationship | Address | Phone | + + + + + | Gia Ramos | ECON | [address] | | | | [address] | | | | | [address] | | + + + + + Care Team Providers + +------+ + | Care High School English Teacher Name | Role | Phone | + +------+ + | Erich Yates | PCP | | + +------+ + Reason for Visit Auth/Cert +--------+--------+ + + + + | Status | Reason | Specialty | Diagnoses / | Referred By | Referred To | | | | | Procedures | Contact | Contact | +--------+--------+ + + + + | | | | Diagnoses | | | | | | | Renal | | | | | | | stones. | | | +--------+--------+ + + + + Encounter Details +--------+ + + + + | Date | Type | Department | Care Team | Description | +--------+ + + + + | 09/19/ | Anesthesia | [facility] | Tereso Dillon, | | | 2017 | Event | [facility] | [address] | | | | | [address] | [place] | | | | | [place] | [address] | | | | | [address] | | | | | | [phone] | | | +--------+ + + + + Anesthesia Record + + + + + | Procedure Name | Responsible | Anesthesia Start | Anesthesia Stop Time | | | Anesthesiologist | Time | | + + + + + | CYSTOSCOPY W/ | Tereso Dillon MD | 09/19/182028 | 09/19/182201 | | URETEROSCOPY W/ | | | | | LASER LITHOTRIPSY | | | | | WITH STENT PLACEMENT | | | | | (Right Ureter) | | | | + + + + + +----+---+ + + | Da | T | Event | Comment | | te | i | | | | | m | | | | | e | | | +----+---+ + + | 12 | 2 | An Checkout | Pre-use anesthesia machine/equipment checkout. | | /2 | 0 | | | | 5/ | 2 | | | | 20 | 2 | | | | 18 | | | | +----+---+ + + | | 2 | | | | | 0 | | | | | 2 | | | | | 4 | | | +----+---+ + + | | 2 | An Start | Reassessment prior to anesthesia induction/procedure. | | | 0 | | | | | 2 | | | | | 9 | | | +----+---+ + + | | 2 | Preoxygenat | | | | 0 | ed | | | | 3 | | | | | 8 | | | +----+---+ + + | | 2 | An | | | | 0 | Induction | | | | 3 | | | | | 9 | | | +----+---+ + + | | 2 | An | | | | 0 | Intubation | | | | 4 | | | | | 0 | | | +----+---+ + + | | 2 | AN Bite | | | | 0 | Block | | | | 4 | | | | | 2 | | | +----+---+ + + | | 2 | Hudson | | | | 0 | 43-degrees | | | | 4 | | | | | 8 | | | +----+---+ + + | | 2 | First | | | | 0 | Inc/Proc St | | | | 5 | | | | | 4 | | | +----+---+ + + | | 2 | Hudson off | | | | 1 | | | | | 5 | | | | | 1 | | | +----+---+ + + | | 2 | Breathing | | | | 1 | Spontaneous | | | | 5 | ly | | | | 4 | | | +----+---+ + + | | 2 | an stop | | | | 1 | data | | | | 5 | | | | | 5 | | | +----+---+ + + | | 2 | An Stop | Patient handed off to recovery nurse. | | | 0 | | | | | 2 | | | +----+---+ + + +------+ | Meds | +------+ + + + | Name | Total | + + + | fentaNYL | 100 mcg | + + + | lidocaine 2% (PF) | 65 mg | + + + | propofol | 135 mg | + + + | dexamethasone | 10 mg | + + + | ondansetron | 4 mg | + + + | ceFAZolin | 1 g | + + + | calcium chloride | 1,000 mg | + + + | NS (Infusion) | 2,200 mL | + + + + + | Name | + + | N2O Flow Rate (L/Min) | + + | O2 Flow Rate (L/Min) | + + | Insp O2 | + + | Exp SEV | + + | Air Flow Rate (L/Min) | + + + + | No blood administrations on file. | + + +--------+ + + + | Type | Details | Placement | Removal | +--------+ + + + | Airway | Placement Date: 09/19/18; | 09/19/182039 by | 09/19/182204 by Justyn | | | Placement Time: 2039 (created via | Tereso Dillon MD | Ladonna He RN | | | procedure documentation); Mask | | | | | Ventilation: EZ; Attempts: 1; | | | | | Airway Type: laryngeal mask; | | | | | Size: 5; Trauma: none; Placement | | | | | Check: exhaled CO2 detection | | | | | device; Removal: removed by RN, | | | | | per protocol; Removal Date: | | | | | 09/19/18; Removal Time: 2204 | | | +--------+ + + + | Read | 09/19/18; 2057; Bilateral; | 09/19/182057 by | 09/20/18 1400 by | | only - | perineum; healing within | Marquita Rondon RN | Zachery Martínez RN | | | expectations; 09/20/18; 1400 | | | | Incisi | | | | | on | | | | +--------+ + + + documented in this encounter Social History + +-------+ +--------+------+ | Tobacco Use | Types | Packs/Day | Years | Date | | | | | Used | | + +-------+ +--------+------+ | Current Every Day | | | | | | Smoker | [...] | + +--------+ + + + | ANE AIRWAY NOTE | Routin | 09/19/2018 | | Results for this | | | e | 8:55 PM | | procedure are in the | | | | PST | | results section. | + +--------+ + + + documented in this encounter Results Anesthesia Airway Note (09/19/2018 8:55 PM PST) + + + | Narrative | Performed At | + + + | Tereso Dillon MD 09/19/2018 20:56 Anesthesia Airway | | | Placement 09/19/2018 20:40 Preprocedure check: patient | | | identified, suction, airway equipment checked, oxygen, airway | | | assessed and patient reassessment prior to induction Rapid Sequence | | | Induction: no Mask ventilation: easy Attempts: 1 Airway type: | | | laryngeal mask Size: 5 Cuffed: cuffed Route, reference point: | | | center of mouth Trauma: none Tube placement verification: carbon | | | dioxide detection Performing provider: TERESO DILLON | | | Electronically Signed by: Tereso Diloln MD | | | ESig date/time: 09/19/2018 20:55 | | | | | + + + + + | Procedure Note | + + | Tereso Dillon MD - 09/19/2018 8:55 PM PST Anesthesia Airway Sveaxrnbc68/25/2018 | | 20:40Preprocedure check: patient identified, suction, airway equipment checked, oxygen, | | airway assessed and patient reassessment prior to inductionRapid Sequence Induction: | | noMask ventilation: easyAttempts: 1Airway type: laryngeal maskSize: 5Cuffed: | | cuffedRoute, reference point: center of mouthTrauma: noneTube placement verification: | | carbon dioxide detectionPerforming provider: TERESO DILLON TElectronically Signed by: | | MD Kori Connor date/time: 09/19/2018 20:55 | | | |Size: 5 | |Cuffed: cuffed | |Route, reference point: center of mouth | |Trauma: none | |Tube placement verification: carbon dioxide detection | |Performing provider: TERESO DILLON | | | | | |Electronically Signed by: MD Kori Connor date/time: 20:55 | | | + + documented in this encounter Visit Diagnoses Not on filedocumented in this encounter Administered Medications + +--------+ +--------+------+------+ | Medication Order | MAR | Action | Dose | Rate | Site | | | Action | Date | | | | + +--------+ +--------+------+------+ | calcium chloride injection | Given | 09/19/20 | 100 mg | | | | Intravenous, PRN, Starting Tue | | 18 9:43 | | | | | 09/19/18 at 2038, Anesthesia | | PM PST | | | | | Intra-op | | | | | | + +--------+ +--------+------+------+ +-------+ +--------+---+---+ | Given | 20 | 100 mg | | | | | 18 9:15 | | | | | | PM PST | | | | +-------+ +--------+---+---+ | Given | 09/19/20 | 100 mg | | | | | 18 9:01 | | | | | | PM PST | | | | +-------+ +--------+---+---+ +---+---+ | | | +---+---+ + +-------+ +-----+---+---+ | ceFAZolin (ANCEF, KEFZOL) | Given | 09/19/20 | 1 g | | | | injection Intravenous, PRN, | | 18 8:47 | | | | | Starting 09/19/18 at 2046, | | PM PST | | | | | Anesthesia Intra-op | | | | | | + +-------+ +-----+---+---+ +---+---+ | | | +---+---+ + +-------+ +-------+---+---+ | dexamethasone (PF) 10 mg/mL | Given | 09/19/20 | 10 mg | | | | injection Intravenous, PRN, | | 18 8:51 | | | | | Starting 09/19/18 at 2050, | | PM PST | | | | | Anesthesia Intra-op | | | | | | + +-------+ +-------+---+---+ +---+---+ | | | +---+---+ + +-------+ +--------+---+---+ | fentaNYL (PF) injection | Given | 09/19/20 | 25 mcg | | | | Intravenous, PRN, Pain, Starting | | 18 9:23 | | | | | 09/19/18 at 2038, Anesthesia | | PM PST | | | | | Intra-op | | | | | | + +-------+ +--------+---+---+ +-------+ +--------+---+---+ | Given | 09/19/20 | 25 mcg | | | | | 18 9:14 | | | | | | PM PST | | | | +-------+ +--------+---+---+ | Given | 09/19/20 | 50 mcg | | | | | 18 8:39 | | | | | | PM PST | | | | +-------+ +--------+---+---+ +---+---+ | | | +---+---+ + +-------+ +-------+---+---+ | lidocaine (PF) 2% injection | Given | 09/19/20 | 65 mg | | | | PRN, Starting Tu09/19/18 at | | 18 8:39 | | | | | 9, Anesthesia Intra-op | | PM PST | | | | + +-------+ +-------+---+---+ +---+---+ | | | +---+---+ + +-------+ +------+---+---+ | ondansetron (ZOFRAN) injection | Given | 09/19/20 | 4 mg | | | | PRN, Nausea, Vomiting, Starting | | 18 8:51 | | | | | 09/19/18 at 1, Anesthesia | | PM PST | | | | | Intra-op | | | | | | + +-------+ +------+---+---+ +---+---+ | | | +---+---+ + +-------+ +--------+---+---+ | propofol (DIPRIVAN) injection | Given | 09/19/20 | 135 mg | | | | Intravenous, PRN, Starting Tue | | 8:39 | | | | | 09/19/18 at 2038, Anesthesia | | PM PST | | | | | Intra-op | | | | | | + +-------+ +--------+---+---+ +---+---+ | | | +---+---+ + +---------+ +---+---+---+ | sodium chloride 0.9% (NS) | New Bag | 09/19/20 | | | | | infusion Intravenous, CONTINUOUS | | 18 9:46 | | | | | PRN, Starting Tue09/19/18 at | | PM PST | | | | | 2028, Anesthesia Intra-op | | | | | | + +---------+ +---+---+---+ +---------+ +---+---+---+ | New Bag | 09/19/20 | | | | | | 18 9:17 | | | | | | PM PST | | | | +---------+ +---+---+---+ | New Bag | 09/19/20 | | | | | | 18 8:29 | | | | | | PM PST | | | | +---------+ +---+---+---+ +---+---+ | | | +---+---+ documented in this encounter"
--- OUTSIDE RECORDS SUMMARY | ~2020-01-14 | XMS | Encounter Summary ---
Demographics + + + | Address | [address] | | | [place] [address] | + + + | Home Phone [...] Author + + + | Author | [facility] | + + + | Organization | [facility] | + + + | Address | Unknown | + + + | Phone | Unavailable | + + + Support + + + + + | Name | Relationship | Address | Phone | + + + + + | Samantha Ramos | ECON | [address] | | | | | [place] | | | | | [address] | | + + + + + Care Team Providers + +------+ + | Care Ethnic Studies Professor Name | Role | Phone | + [...] | | | [facility] | [place], [place] | | | | | [address] | [address] | | | | | [place] | [phone] | | | | | [place], [place] | | | | | | [address] | | | | | | [phone] | | | +--------+ + + + [...] as of this encounter Plan of Treatment +--------+---------+ + + + | Date | Type | Specialty | Care Team | Description | +--------+---------+ + + + | 01/24/ | Office | Surgery | Neri Steven MD | | | 2019 | Visit | | [address] | | | | | | [place], | | | | | | [place] [address] | | | | | | [phone] | | | | | | | [...] + + + | [facility] | [address] | [place], [place] | | | [facility] | [address] | [address] | | | TESTS | | | | + + + + + | [facility] | [address] | [place], [place] | | | TESTS | [facility] | [address] | | + + + + + documented in this encounter Visit Diagnoses Not on filedocumented in this encounter"
--- OUTSIDE RECORDS SUMMARY | ~2020-01-14 | XMS | Encounter Summary ---
Demographics + + + | Address | [address] | | | [place] [address] | + + + | Home Phone | | + + + | Preferred Language | Unknown | + + + | Marital Status | Single | + + + | Jehovah'S Witness Affiliation | NON | + + + | Race | White | + + + | Ethnic Group | Not or | + + + Author + + + | Author | [facility] | + + + | Organization | [facility] | + + + | Address | Unknown | + + + | Phone | Unavailable | + + + Support + + + + + | Name | Relationship | Address | Phone | + + + + + | Samantha Ramos | ECON | [address] | | | | | [place] | | | | | [address] | | + + + + + Care Team Providers + +------+ + | Care Chief Yeoman Name | Role | Phone | + +------+ + | Erich Yates PA-C | PCP | | + +------+ + Reason for Referral Consultation (Urgent) + +--------+ + + + + | Status | Reason | Specialty | Diagnoses / | Referred By | Referred To | | | | | Procedures | Contact | Contact | + +--------+ + + + + | Authorized | | Surgery | Diagnoses | R[facility] | [facility] | | | | | Diabetic | Lashawn Tan, | [address] | | | | | gastroparesi | [address] | [address] | | | | | s (HCC) | [address] | Center for | | | | | Procedures | [facility] | [facility] and | | | | | CONSULT TO | Rd | Healing, | | | | | SURGERY - | [place], [place] | [address] | | | | | GENERAL | [address] | [place], [place] | | | | | CONSULT TO | Phone: | [address] | | | | | SURGERY - | [phone] | Phone: | | | | | GENERAL | Fax: | [phone] | | | | | | [phone] | Fax: | | | | | | | [phone] | + +--------+ + + + + Reason for Visit + + + | Reason | Comments | + + + | New patient | | | consultation | | + + + Intake Referral (Routine) +--------+--------+ + + + + | Status | Reason | Specialty | Diagnoses / | Referred By | Referred To | | | | | Procedures | Contact | Contact | +--------+--------+ + + + + | Closed | | Gastroenterol | Diagnoses | | [employer] | | | | ogy | Abdominal | [facility], | [address] | | | | | pain | Vicky Fang, | [address] | | | | | abdominal | [employer] [address] | [facility] | | | | | pain | [place] | Health and | | | | | | Street | Healing, | | | | | | [address] | [address] | | | | | | [facility], | [place], [place] | | | | | | [place] [address] | [address] | | | | | | Phone: | Phone: | | | | | | [phone] | [phone] | | | | | | Fax: | Fax: | | | | | | [phone] | [phone] | +--------+--------+ + + + + Encounter Details +--------+---------+ + + + | Date | Type | Department | Care Team | Description | +--------+---------+ + + + | 07/02/ | Office | Digestive Health | Lashawn Joy, | Diabetic | | 2019 | Visit | Center at [address] | PA[facility]anda[facility] [address] [facility] | gastroparesis (HCC) | | | | [facility] | [facility] [address] | (Primary Dx); | | | | for Health and | [place], [place] | Chronic diarrhea | | | | [facility], [facility] [address] | [address] | | | | | [place], [place] | [phone] | | | | | [address] | | | | | | [phone] | | | +--------+---------+ + + + [...] + + + | Blood Pressure | 171/115 | 07/02/2019 1:14 PM | | | | | PDT | | + + + + + | Pulse | 108 | 07/02/2019 1:14 PM | | | | | PDT | | + + + + + | Temperature | 36.7 C (98 F) | 07/02/2019 1:14 PM | | | | | PDT [...] + + + + | Weight | 64.1 kg (141 lb 4.8 | 07/02/2019 1:14 PM | | | | oz) | PDT | | + + + + + | Height | 188 cm (6' 2") | 07/02/2019 1:14 PM | | | | | PDT | | + + + + + | Body Mass Index | 18.14 | 07/02/2019 1:14 PM | | | | | PDT | | + + + + + documented in this encounter Patient Instructions Patient Instructions Lashawn Joy PA-C - 07/02/2019 1:05 PM PDTIt was nice to meet you today. Here are my recommendations: 1. We will check labs today to evaluate your nutrition status. I will contact you with the results when they are available. 2. I am submitting an urgent referral to the surgery department. If you do not hear from em within 2 weeks please contact my office. 3. I am also ordering stool testing to evaluate the cause of your diarrhea. We will call yo u once the orders have been submitted to [facility]. Please do not hesitate to contact my office via phone or [employer] if you have any questions. Thank you! documented in this encounter Progress Notes Abdirizak Silva - 07/02/2019 1:05 PM PDTPatient presents for blood draw per Providers order Site: RIGHT A/C Time: 14:06 Patient tolerated well; ONE ATTEMPT Lashawn Torrez PA-C - 1:05 PM PDT cGastroenterology Initial Clinic Note 07/01/2019 CHIEF COMPLAINT/IDENTIFICATION: Brooks Marquez II is a 28 y.o. male referred by PCP for evaluation of GI symptoms and to establish care in our clinic. PCP: Erich Yates PA-C HISTORY OF PRESENT ILLNESS Brooks Marquez II is a 28 y.o. male with history of poorly controlled T1DM (A1c 9.8% 2017), s/p R BKA from necrotizing fasciitis 10/2018, CKD stage 3, chronic pain with opiate de pendence, who presents for evaluation of diabetic gastroparesis. He was diagnosed with gastroparesis in 2016. Mom states he has had symptoms chronically, bu t feels they have worsened over past year. Brooks tells me that he is unable to eat or take any of his medications due to vomiting. He has continuous pain in his epigastric area which is made worse with any attempts at PO intake. He describes it as "like a chain-saw blade" ru nning up and down his epigastrium. He endorses frequent vomiting, up to 10x/daily, any time he tries to ingest something orall y. He has unfortunately required multiple local ED visits for IVF. His weight has been stabl e. He does use marijuana intermittently. He is prescribed hydrocodone which he takes when he can but often cannot keep this down. Previous prokinetic agents tried include: metoclopromide- not effective Erythromycin- not effective Also tried: Omeprazole- not helpful Ondansetron- ODT mild relief of nausea but short lived Their local GI provider was hoping to have him evaluated for surgical intervention ie gastr ic pacemaker. Additionally he complains of chronic diarrhea, up to 10x/daily which does not appear to hav e been worked up previously. +cramping assoc'd with diarrhea, denies hematochezia. Pepto bis mol is somewhat helpful. He is followed closely by his local PCP. Current GI Symptoms: Bowel Habits: 10x/daily loose stools, non-bloody, often after eating Abdominal Pain: +continuus epigastric pain, exacerbated by PO intake Weight loss: +several pounds since 01/2019 per chart review. Nausea/vomiting: vomiting 10x/daily on average, vomits up most food, liquid, and/or pills p er his report Appetite: Decreased Dysphagia: None REVIEW OF SYSTEMS: General: No fevers, chills, night sweats, unintended weight loss Cardiovascular: No chest pain or pressure, no palpitations Respiratory: No SOB, no wheezing, no cough HEENT: No decreased vision or hearing, no sinus pain, no rhinnorhea or sore throat Skin: No rash, no new or suspicious lesions GI: No nausea, vomiting, or diarrhea. No constipation, no abdominal bloating. : No dysuria, no polyuria, no nocturia Peripheral Vascular: No edema, no digital clubbing Neurologic: No numbness or tingling, no dizziness, no pre-syncope or syncope, no decrease i n balance Psychologic: No depression or anxiety, no hallucinations Summary of prior medical records (personally reviewed today): EGD, 10/2015: Findings Mild antral erythema Minimal food residual in stomach Final Diagnosis A. Duodenum, biopsies: - Duodenal mucosa without diagnostic microscopic abnormalities B. Stomach, biopsies: - Gastric mucosa with mild chronic gastritis - No active inflammation identified - No Helicobacter organisms identified by H&E morphology C. Esophagus, biopsies: - Squamous mucosa with changes of gastroesophageal reflux NM GES, 2015: FINDINGS: Exam is partially limited as patient had been administered reglan, prilosec and dilaudid. T hese are known to affect gastric emptying. The percentage of tracer retained at 1, 2, and 4 hours after meal ingestion is 92, 99, and 91%, respectively. The upper limits of normal gastric retention are 90%, 60%, and 10% at 1, 2, and 4 hours respectively IMPRESSION: Patient had been administered reglan, prilosec and dilaudid prior to exam, which are known to affect gastric emptying. Despite this, the gastric emptying is markedly delayed, consiste nt with severe gastroparesis. H. Pylori IgG, 2015: -28.8 (H) TTG, IgA, 2013: - WNL PAST MEDICAL HISTORY No date: Chronic epigastric pain Comment: Suspected gastroparesis. EGD negative No date: Type 1 diabetes mellitus (HCC) Comment: Dx age 11. No known complications aside from suspected gastroparesis. Last A1c unknown. FAMILY HISTORY: No GI relevant family history is reported. SOCIAL HISTORY: Pt lives in [place], [place] with his mother. Not working. Smokes 1/4-1/2ppd, working on cutting back. Denies EtOH. Endorses occasional marijuana use, denies illicit drug use otherwise. Past Surgical History Procedure Laterality Date Elbow surgery MEDICATIONS Current Outpatient Medications Medication Sig Blood Sugar Diagnostic (ASCENSIA MICROFILL) In Vitro Strip use to test blood glucose 5x daily glucagon 1 mg/mL injection recon soln Inject 1 mg into the muscle (IM) as needed for hy poglycemia (CBG less than 70 mg/dL). HYDROcodone-acetaminophen 10-325 mg oral tablet Take 1 tablet by mouth every four hours as needed. Not to exceed 3250 mg of acetaminophen from all products per 24 hour period. insulin glargine (LANTUS) 100 unit/mL subcutaneous solution Inject 40 Units under the s kin (SUBC) once daily in the morning. insulin lispro (HUMALOG) 100 unit/mL subcutaneous solution Up to 50 units per day in di vided doses as directed Insulin Syringe-Needle U-100 (BD ULTRAFINE INSULIN) 1 mL 31 x 5/16" Misc.(Non-Drug; Com grey Route) Syringe administer lantus as recommended by physician metoclopramide HCl 10 mg oral tablet Take 10 mg by mouth every six hours as needed for nausea/vomiting. omeprazole 40 mg oral capsule,delayed release(DR/EC) Take 40 mg by mouth once daily. ondansetron ODT 8 mg oral tablet,disintegrating Dissolve 8 mg in mouth every twelve ravi rs as needed. No current facility-administered medications for this visit. ALLERGIES: Allergies Allergen Reactions Codeine Nausea and Vomiting PHYSICAL EXAM BP (!) 171/115 | Pulse 108 | Temp 36.7 C (98 F) (Oral) | Ht 1.88 m (6' 2") | Wt 64. 1 kg (141 lb 4.8 oz) | BMI 18.14 kg/m | BSA 1.83 m General Survey: Alert, well-groomed chronically ill appearing young male. Appears somewhat uncomfortable, in no acute distress. Skin: Warm and dry, without rashes or lesions. Skin turgor appropriate, grossly normal text ure. Neck: Supple Cardiac: Precordial area without lifts or heeves. On auscultation, regular rate and rhythm, no clicks, rubs or gallops. Pulmonary: Respirations non-labored, lungs CTAB Abdomen: Abdomen soft, non-distended,+TTP epigastric area and bilateral lower quadrants, Grey wel sounds normoactive x4, no HSM, no palpable masses Peripheral Vascular: Extremities are warm, distal pulses present 2+ in upper and lower extr emities, no cyanosis or clubbing of digits. No peripheral edema. Neurologic: Cranial nerves II-VII grossly intact, sensation and muscle motor grossly normal throughout. ASSESSMENT Brooks Marquez II is a 28 y.o. male with history of poorly controlled T1DM (A1c 9.8% 2017), s/p R BKA from necrotizing fasciitis 10/2018, CKD stage 3, chronic pain with opiate de pendence, who presents for evaluation of gastroparesis. His gastric emptying study, despite being done on opiates, does show profound gastric slowing. I think it is worth him having a consult with foregut surgery to explore any possible surgical interventions (pyloroplasty, p acemaker, etc), given his persistent symptoms and lack of response to medical therapies thus far. If he is not a surgical candidate can try domperidone, but this may be difficult for t hem to afford as it is not covered by Medicaid. Will check basic labs & prealbumin today ass ess nutrition status. Regarding diarrhea, I am not sure what the etiology of this is, does not appear to have bee n evaluated so will start with basic stool studies. Consider also overflow diarrhea in the s etting of chronic narcotic use. RECOMMENDATIONS: 1. Diabetic gastroparesis (HCC) - CBC ONLY - FERRITIN - COMPLETE METABOLIC SET (NA,K,CL,CO2,BUN,CREAT,GLUC,CA,AST,ALT,BILI TOTAL,ALK PHOS,ALB,PRO T TOTAL) - PREALBUMIN - CONSULT TO SURGERY - GENERAL (urgent) 2. Chronic diarrhea - CBC (HEMOGRAM) ONLY - CALPROTECTIN, FECAL; Future - PANCREATIC ELASTASE, STOOL; Future - OVA AND PARASITE EXAM; Future - GIARDIA SCREEN EIA, STOOL; Future Return to clinic as needed pending above. Lashawn Joy PA-C [facility] [address] [facility] Mailcode: [place] [address] documented in this encounter Plan of Treatment +--------+---------+ + + + | Date | Type | Specialty | Care Team | Description | +--------+---------+ + + + | 01/24/ | Office | Surgery | Neri Steven MD | | | 2020 | Visit | | [address] | | | | | | [place], | | | | | | [place] [address] | | | | | | [phone] | | | | | | | | +--------+---------+ + + + + + +--------+ + + | Name | Type | Priori | Associated Diagnoses | Order Schedule | | | | ty | | | + + +--------+ + + | ROUTINE | Procedures | Routin | Diabetic | Ordered: 07/02/2019 | | VENIPUNCTURE, | | e | gastroparesis (HCC) | | | VENOUS-BACK OFFICE | | | Chronic diarrhea | | + + +--------+ + + documented as of this encounter Procedures + +--------+ + + + | Procedure Name | Priori | Date/Time | Associated Diagnosis | Comments | | | ty | | | | + +--------+ + + + | CBC (HEMOGRAM) ONLY | Routin | 07/02/2019 | Diabetic | Results for this | | | e | 2:11 PM | gastroparesis (HCC) | procedure are in the | | | | PDT | Chronic diarrhea | results section. | + +--------+ + + + | PREALBUMIN, SERUM | Routin | 07/02/2019 | Diabetic | Results for this | | | e | 2:11 PM | gastroparesis (HCC) | procedure are in the | | | | PDT | Chronic diarrhea | results section. | + +--------+ + + + | COMPLETE METABOLIC | Routin | 07/02/2019 | Diabetic | Results for this | | SET | e | 2:11 PM | gastroparesis (HCC) | procedure are in the | | (NA,K,CL,CO2,BUN,CRE | | PDT | Chronic diarrhea | results section. | | AT,GLUC,CA,AST,ALT,B | | | | | | ANNIE TOTAL,ALK | | | | | | PHOS,ALB,PROT TOTAL) | | | | | + +--------+ + + + | CBC ONLY | Routin | 07/02/2019 | Diabetic | Results for this | | | e | 2:11 PM | gastroparesis (HCC) | procedure are in the | | | | PDT | Chronic diarrhea | results section. | + +--------+ + + + | FERRITIN | Routin | 07/02/2019 | Diabetic | Results for this | | | e | 2:11 PM | gastroparesis (HCC) | procedure are in the | | | | PDT | Chronic diarrhea | results section. | + +--------+ + + + documented in this encounter Results GIARDIA SCREEN EIA, STOOL (07/19/2019) + + + + + + | Component | Value | Ref Range | Performed | Pathologist | | | | | At | Signature | + + + + + + | GIARDIA/CRY | negative | negative | [facility] | | | PTOSPORIDIU | | | LAB - | | | M | | | [place] | | | | | | | | + + + + + + + + | Specimen | + + | Stool - Rectum | | structure (body | | structure) | + + + + + + + | Performing | Address | City/State/Zipcode | Phone Number | | Organization | | | | + + + + + | [facility] - | [address] | [place], [place] | [phone] | | [place] | | | | + + + + + OVA AND PARASITE EXAM (07/19/2019) + + + + + + | Component | Value | Ref Range | Performed | Pathologist | | | | | At | Signature | + + + + + + | OVA AND | negative | negative | [facility] | | | PARASITE | | | LAB - | | | | | | [place] | | + + + + + + + + | Specimen | + + | Stool - Rectum | | structure (body | | structure) | + + + + + + + | Performing | Address | City/State/Zipcode | Phone Number | | Organization | | | | + + + + + | [facility] - | [address] | [place] | [phone] | | [place] | | | | + + + + + PANCREATIC ELASTASE, STOOL (07/18/2019) + +-------+ + + + | Component | Value | Ref Range | Performed | Pathologist | | | | | At | Signature | + +-------+ + + + | PANCREATIC | 248 | >=201 ug/G | [facility] | | | ELASTASE | | stool | LAB - | | | | | | [place] | | + +-------+ + + + + + | Specimen | + + | Stool - Rectum | | structure (body | | structure) | + + + + + + + | Performing | Address | City/State/Zipcode | Phone Number | | Organization | | | | + + + + + | [facility] - | [address] | [place], [place] | [phone] | | [place] | | | | + + + + + CALPROTECTIN, FECAL (07/18/2019) + +-------+ + + + | Component | Value | Ref Range | Performed | Pathologist | | | | | At | Signature | + +-------+ + + + | CALPROTECTI | 20 | <=50 ug/g | [facility] | | | N, FECAL | | | LAB - | | | | | | [place] | | + +-------+ + + + + + | Specimen | + + | Stool - Rectum | | structure (body | | structure) | + + + + + + + | Performing | Address | City/State/Zipcode | Phone Number | | Organization | | | | + + + + + | [facility] - | [address] | [place], [place] | [phone] | | [place] | | | | + + + + + CBC (HEMOGRAM) ONLY (07/02/2019 2:11 PM PDT) + + + + + + | Component | Value | Ref Range | Performed | Pathologist | | | | | At | Signature | + + + + + + | WHITE CELL | 8.87 | 3.50 - 10.80 | [facility] | | | COUNT | | K/cu mm | LABORATORY | | | | | | SERVICES, | | | | | | CORE | | + + + + + + | RED CELL | 3.04 (L) | 4.50 - 6.00 | [facility] | | | COUNT | | M/cu mm | LABORATORY | | | | | | SERVICES, | | | | | | CORE | | + + + + + + | HEMOGLOBIN | 9.7 (L) | 13.5 - 17.5 | [facility] | | | | | g/dL | LABORATORY | | | | | | SERVICES, | | | | | | CORE | | + + + + + + | HEMATOCRIT | 29.7 (L) | 41.0 - 53.0 % | [facility] | | | | | | LABORATORY | | | | | | SERVICES, | | | | | | CORE | | + + + + + + | MCV | 97.7 | 80.0 - 100.0 fL | [facility] | | | | | | LABORATORY | | | | | | SERVICES, | | | | | | CORE | | + + + + + + | MCHC | 32.7 | 32.0 - 36.0 | [facility] | | | | | g/dL | LABORATORY | | | | | | SERVICES, | | | | | | CORE | | + + + + + + | RDW SD | 48.5 (H) | 35.1 - 46.3 fL | [facility] | | | | | | LABORATORY | | | | | | SERVICES, | | | | | | CORE | | + + + + + + | PLATELET | 246 | 150 - 400 K/cu | [facility] | | | COUNT | | mm | LABORATORY | | | | | | SERVICES, | | | | | | CORE | | + + + + + + | MPV | 13.9 (H) | 9.7 - 12.3 fL | [facility] | | | | | | LABORATORY | | | | | | SERVICES, | | | | | | CORE | | + + + + + + | NRBC% | 0.0 | 0.0 - 0.3 % | [facility] | | | | | | LABORATORY | | | | | | SERVICES, | | | | | | CORE | | + + + + + + | NRBC# | 0.00 | 0.00 - 0.02 | [facility] | | | | | K/cu mm | LABORATORY | | | | | | SERVICES, | | | | | | CORE | | + + + + + + + + | Specimen | + + | Blood - Blood | | (substance) | + + + + + + + | Performing | Address | City/State/Zipcode | Phone Number | | Organization | | | | + + + + + | [facility] | [address] | [place] [address] | | | SERVICES, CORE | [address] | | | + + + + + PREALBUMIN (07/02/2019 2:11 PM PDT) + +-------+ + + + | Component | Value | Ref Range | Performed | Pathologist | | | | | At | Signature | + +-------+ + + + | PREALBUMIN | 21.9 | 17.0 - 42.0 | [facility] | | | | | mg/dL | [facility] | | | | | | [place] | | + +-------+ + + + + + | Specimen | + + | Blood - Blood | | (substance) | + + + + + + + | Performing | Address | City/State/Zipcode | Phone Number | | Organization | | | | + + + + + | [facility] | [address] | [place] [address] | | | [place] | | | | + + + + + COMPLETE METABOLIC SET (NA,K,CL,CO2,BUN,CREAT,GLUC,CA,AST,ALT,BILI TOTAL,ALK PHOS,ALB,PROT TOTAL) (07/02/2019 2:11 PM PDT) + + + + + + | Component | Value | Ref Range | Performed | Pathologist | | | | | At | Signature | + + + + + + | GLUCOSE, | 147 (H) | 70 - 99 mg/dL | [facility] | | | PLASMA | | | LABORATORY | | | (LAB) | | | SERVICES, | | | | | | CORE | | + + + + + + | BUN, PLASMA | 27 (H) | 6 - 20 mg/dL | [facility] | | | (LAB) | | | LABORATORY | | | | | | SERVICES, | | | | | | CORE | | + + + + + + | CREATININE | 1.73 (H) | 0.70 - 1.30 | [facility] | | | PLASMA | | mg/dL | LABORATORY | | | (LAB) | | | SERVICES, | | | | | | CORE | | + + + + + + | EGFR | 57 (L) | >60 mL/min | [facility] | | | - | | | LABORATORY | | | [place] | | | SERVICES, | | | | | | CORE | | + + + + + + | EGFR NON | 47 (L) | >60 mL/min | [facility] | | | -SCOTT | | | LABORATORY | | | [place] | | | SERVICES, | | | | | | CORE | | + + + + + + | SODIUM, | 142 | 136 - 145 | [facility] | | | PLASMA | | mmol/L | LABORATORY | | | (LAB) | | | SERVICES, | | | | | | CORE | | + + + + + + | POTASSIUM, | 4.2 | 3.4 - 5.0 | [facility] | | | PLASMA | | mmol/L | LABORATORY | | | (LAB) | | | SERVICES, | | | | | | CORE | | + + + + + + | CHLORIDE, | 110 (H) | 97 - 108 mmol/L | [facility] | | | PLASMA | | | LABORATORY | | | (LAB) | | | SERVICES, | | | | | | CORE | | + + + + + + | TOTAL CO2, | 27 | 21 - 32 mmol/L | [facility] | | | PLASMA | | | LABORATORY | | | (LAB) | | | SERVICES, | | | | | | CORE | | + + + + + + | CALCIUM, | 8.2 (L) | 8.6 - 10.2 | [facility] | | | PLASMA | | mg/dL | LABORATORY | | | (LAB) | | | SERVICES, | | | | | | CORE | | + + + + + + | CALCIUM(ALB | 9.6 | 8.6 - 10.2 | [facility] | | | CORRECTED) | | mg/dL | LABORATORY | | | | | | SERVICES, | | | | | | CORE | | + + + + + + | BILIRUBIN | 0.2 (L) | 0.3 - 1.2 mg/dL | [facility] | | | TOTAL | | | LABORATORY | | | | | | SERVICES, | | | | | | CORE | | + + + + + + | TOTAL | 6.1 (L) | 6.4 - 8.2 g/dL | [facility] | | | PROTEIN, | | | LABORATORY | | | PLASMA | | | SERVICES, | | | (LAB) | | | CORE | | + + + + + + | ALBUMIN, | 2.3 (L) | 3.5 - 4.7 g/dL | [facility] | | | PLASMA | | | LABORATORY | | | (LAB) | | | SERVICES, | | | | | | CORE | | + + + + + + | ALK PHOS | 98 | 53 - 128 U/L | [facility] | | | | | | LABORATORY | | | | | | SERVICES, | | | | | | CORE | | + + + + + + | AST(SGOT) | 20 | <=41 U/L | [facility] | | | | | | LABORATORY | | | | | | SERVICES, | | | | | | CORE | | + + + + + + | ALT (SGPT) | 22 | <=60 U/L | [facility] | | | | | | LABORATORY | | | | | | SERVICES, | | | | | | CORE | | + + + + + + | ANION GAP | 5 | 4 - 11 mmol/L | [facility] | | | | | | LABORATORY | | | | | | SERVICES, | | | | | | CORE | | + + + + + + | ANION | 9 | 4 - 11 mmol/L | [facility] | | | GAP(ALB | | | LABORATORY | | | CORRECTED) | | | SERVICES, | | | | | | CORE | | + + + + + + | POTASSIUM | No Hemo | | [facility] | | | CMNT | | | LABORATORY | | | | | | SERVICES, | | | | | | CORE | | + + + + + + | BILI T CMNT | No Hemo | | [facility] | | | | | | LABORATORY | | | | | | SERVICES, | | | | | | CORE | | + + + + + + | AST CMNT | No Hemo | | [facility] | | | | | | LABORATORY | | | | | | SERVICES, | | | | | | CORE | | + + + + + + + + | Specimen | + + | Blood - Blood | | (substance) | + + + + + | Narrative | Performed At | + + + | GFR is estimated using the MDRD equation recommended by the National | [facility] | | Kidney Disease Education Program. Estimated GFR Interpretive | LABORATORY | | Information: <60 mL/min/1.73 sq m Chronic Kidney | SERVICES, CORE | | Disease <15 mL/min/1.73 sq m Kidney Failure | | | Estimated GFR greater than 60 mL/min/1.73 sq m is of limited clinical | | | value. The MDRD equation is not valid in the following situations: - | | | Patients under 18 years of age - Severe malnutrition or obesity - | | | Vegetarian diet - Rapidly changing kidney function - Amputees, | | | paraplegics, or other muscle-wasting diseases | | + + + + + + + + | Performing | Address | City/State/Zipcode | Phone Number | | Organization | | | | + + + + + | [facility] | [address] | [place] [address] | | | SERVICES, CORE | [address] | | | + + + + + FERRITIN (07/02/2019 2:11 PM PDT) + + + + + + | Component | Value | Ref Range | Performed | Pathologist | | | | | At | Signature | + + + + + + | FERRITIN | 240 (H)Comment: Male | 50 - 200 ng/mL | [facility] | | | | and Female >18 years: | | LABORATORY | | | | <20 ng/mL: | | SERVICES, | | | | Consistant with iron | | CORE | | | | deficiency 21-50 | | | | | | ng/mL: Possible | | | | | | iron deficiency 51-99 | | | | | | ng/mL: Iron | | | | | | deficiency unlikely | | | | | | unless inflammation | | | | | | present or | | | | | | patient | | | | | | >65 years of age | | | | | | 100-200 ng/mL: | | | | | | Normal, not consistent | | | | | | with iron deficiency | | | | | | >200 ng/mL: If | | | | | | transferrin saturation | | | | | | >45%, consider | | | | | | hemochromatosis | | | | + + + + + + + + | Specimen | + + | Blood - Blood | | (substance) | + + + + + + + | Performing | Address | City/State/Zipcode | Phone Number | | Organization | | | | + + + + + | [facility] | [address] | [place] [address] | | | SERVICES, CORE | [address] | | | + + + + + documented in this encounter Visit Diagnoses + + | Diagnosis | + + | Diabetic gastroparesis (HCC) - Primary 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
--- OUTSIDE RECORDS SUMMARY | ~2020-01-14 | XMS | Encounter Summary ---
Demographics + + + | Address | [address] | | | [place] [address] | + + + | Home Phone | | + + + | Preferred Language | Unknown | + + + | Marital Status | Single | + + + | Uatsdin Affiliation | Unknown | + + + | Race | Unknown | + + + | Ethnic Group | Unknown | + + + Author + + + | Author | [facility] | | | and [place] | + + + | Organization | [facility] | | [...] [address] | | | | | [address] | | + + + + + Care Team Providers + +------+ + | Care Printing Services Coordinator Name | Role | Phone | + [...] + + | 09/19/ | Hospital | [facility] | Tc Mora | Right ureteral | | 2018 - | Encounter | [facility] | MD [address] | stone; Acute kidney | | | | [address] | [address] [place] [address] | injury (HCC); Flank | | 09/20/ | | [place] [address] | [address] | pain; | | 2018 | | [phone] | | Hydronephrosis, | | | | [...] might be differ ent from the original. [facility] Urology Progress Note Brooks Marquez is [...] + | [facility] | [address] | [place] | [phone] | | [facility] | | [address] | | | - LABORATORY | | [...] (H) | 7 - 18 mg/dL | [facility] | | | | | | [facility] | | | | | | MEDICAL | | | | | | CENTER - | | | | | | LABORATORY | | + + + + + + | Creatinine | 2.16 (H) | 0.60 - 1.30 | [facility] | | | | | mg/dL | [facility] | | | | | | MEDICAL | | | | | | CENTER - | | | | | | LABORATORY | | + + + + + + | eGFR if not | 37 (L)Comment: | >=60 | [facility] | | | | GLOMERULAR FILTRATION | mL/min/1.73m2 | [facility] | | | [place] | RATE,ESTIMATED | | MEDICAL | | | | mL/min/1.95k8Oxpb than | | CENTER - | | [...] | | | | | mg/dL | [facility] | | | | | | [...] + | [facility] | [address] | [place] | [phone] | | [facility] | | [address] | | | - LABORATORY | | | | + + + + + Eosinophil Smear, Urine (09/20/2018 10:26 AM PST) + + + + + + | Component | Value | Ref Range | Performed | Pathologist | | | | | At | Signature | + + + + + + | Eosinophil, | None seen | None seen | [facility] | | | Urine | | | [facility] | | [address] | [place] | [phone] | | [facility] | | [address] | | | - LABORATORY | | [...] | | Urine, | | | [facility] | | | Random | | | [...] and other method performance specifications have | [facility] | | not been established for this test. These results should be | [facility] | | integrated into the clinical context for interpretation. | [facility] | | | - LABORATORY | + + + + + + + + | Performing | Address | City/State/Zipcode | Phone Number | | Organization | | | | + + + + + | [facility] | [address] | [place], [place] | [phone] | | [facility] | | [address] | | | - LABORATORY | | [...] | | [facility] | | | Random | | | [...] [address] | [place] | [phone] | | [facility] | | [address] | | | - LABORATORY | | [...] - 1.030 | [facility] | | | [place] | | | [facility] | | [...] Urine | | mg/dL, Negative | [facility] | | | | | | MEDICAL | | | | | | CENTER - | | | | | | LABORATORY | | + + + + + + | White Blood | 0-2 | 0 - 2 /HPF | [facility] | | | Cells, | | | [facility] | | | Urine | | | MEDICAL | | | | | | CENTER - | | | | | | LABORATORY | | + + + + + + | RBC UA | >100 (A) | 0 - 2 /HPF | [facility] | | | | | [...] + + + + + + | BACTERIA UA | 1+ (A) | Negative /HPF | [facility] | | | | | | [facility] | | | | | | MEDICAL | | | | | | CENTER - | | | | | | LABORATORY | | + + + + + + | URINE | Urine Culture Not | | [facility] | | | COMMENT | Indicated | | [facility] | | | | | | [...] + + | [facility] | [address] | [place] | [phone] | | [facility] | | [address] | | | - LABORATORY | | [...] + | [facility] | [address] | [place] | [phone] | | [facility] | | [address] | | | - LABORATORY | | [...] [address] | [place] | [phone] | | [facility] | | [address] | | | - LABORATORY | | | | + + + + + POC Glucose (09/20/2018 9:13 AM PST) + +---------+ + + + | Component | Value | Ref Range | Performed | Pathologist | | | | | At | Signature | + +---------+ + + + | Glucose, | 307 (H) | 70 - 109 mg/dL | [facility] | | | POC | | | [facility] | | | | | | [...] [address] | [place] | [phone] | | [facility] | | [address] | | | - LABORATORY | | [...] + | [facility] | [address] | [place] | [phone] | | [facility] | | [address] | | | - LABORATORY | | [...] Consistent with previous | mmol/L | [facility] | | | | results. | | [...] 2.07 (H) | 0.60 - 1.30 | [facility] | | | | | mg/dL | [facility] | | | | | | MEDICAL | | | | | | CENTER - | | | | | | LABORATORY | | + + + + + + | eGFR if not | 38 (L)Comment: | >=60 | [facility] | | | | GLOMERULAR FILTRATION | mL/min/1.73m2 | [facility] | | | [place] | RATE,ESTIMATED | | MEDICAL | | | | mL/min/1.91k0Hrts than | | CENTER - | | [...] [address] | [place] | [phone] | | [facility] | | [address] | | | - LABORATORY | | [...] | | Lavender | | | [facility] | | | Top Tube | | [...] + | [facility] | [address] | [place] | [phone] | | [facility] | | [address] | | | - LABORATORY | | [...] MD | | | | | | ([id number]) on 09/21/2018 | | | | | [...] | [address] | [place] | [phone] | | [facility] | | [address] | | | - LABORATORY | | [...] | | | | M/uL | [facility] | | | | [...] | | | Granulocyte | | | [facility] | | | s | | | [...] | | Monocytes | | K/uL | [facility] | [...] | | nRBC | | K/uL | . [facility] | | | | | | [...] + | [facility] | [address] | [place] | [phone] | | [facility] | | [address] | | | - LABORATORY | | [...] | Critical Result called | mmol/L | [facility] | | | | to and [...] 1.90 (H) | 0.60 - 1.30 | [facility] | | | | | mg/dL | [facility] | | | | | | MEDICAL | | | | | | CENTER - | | | | | | LABORATORY | | + + + + + + | eGFR if not | 42 (L)Comment: | >=60 | [facility] | | | | GLOMERULAR FILTRATION | mL/min/1.73m2 | [facility] | | | [place] | RATE,ESTIMATED | | MEDICAL | | | | mL/min/1.67d4Lxtf than | | CENTER - | | [...] [address] | [place] | [phone] | | [facility] | | [address] | | | - LABORATORY | | | | + + + + + POC Glucose (09/19/2018 11:44 PM PST) + +-------+ + + + | Component | Value | Ref Range | Performed | Pathologist | | | | | At | Signature | + +-------+ + + + | Glucose, | 106 | 70 - 109 mg/dL | [facility] [...] + | [facility] | [address] | [place] | [phone] | | [facility] | | [address] | | | - LABORATORY | | [...] | | + +---------+ + + [place] Rachel Jacquelin No Charge (09/19/2018 10:11 PM PST) + [...] 1.93 (H) | 0.60 - 1.30 | [facility] | | | | | mg/dL | [facility] | | | | | | MEDICAL | | | | | | CENTER - | | | | | | LABORATORY | | + + + + + + | eGFR if not | 42 (L)Comment: | >=60 | [facility] | | | | GLOMERULAR FILTRATION | mL/min/1.73m2 | [facility] | | | [place] | RATE,ESTIMATED | | MEDICAL | | | | mL/min/1.52o6Lune than | | CENTER - | | [...] [address] | [place] | [phone] | | [facility] | | [address] | | | - LABORATORY | | | | + + + + + POC Glucose (09/19/2018 10:01 PM PST) + +-------+ + + + | Component | Value | Ref Range | Performed | Pathologist | | | | | At | Signature | + +-------+ + + + | Glucose, | 106 | 70 - 109 mg/dL | [facility] [address] | [place] | [phone] | | [facility] | | [address] | | | - LABORATORY | | [...] BKR | | | | Analysis contact Michelle | | | | | | at:[phone]. | | | | + + + [...] test was developed and | | LAB [facility] | | | | its performance | | - BKR | | | | characteristicsdetermine | | | | | | d by [facility]. It has not | | | | [...] + + | Performed at: 01 - [facility] [address] [facility], | REFERENCE LAB | | [place], [place] [id number] Civil Engineer Land Development: Sarabjit Love MD, Phone: | [place] | | [phone] | | + + + + + + + + | Performing | Address | City/State/Zipcode | Phone Number | | Organization | | | | + + + + + | REFERENCE LAB | [address] | [place], [place] | [phone] | | [facility] [address] | [address] | | + + + + + [...] + + | [facility] | [address] | [place] | [phone] | | [facility] | | [address] | | | - LABORATORY | | [...] | | | | | Nebulization, ONCE, 09/20/18 | | AM PST | | | [...] 18 8:21 | | | | | Tue09/20/18 at 0745, For 1 dose | | [...] | | | | | Pain, Starting Tue09/20/18 at | | | | | | [...] | | | | | | information. Ángelke prior to use., | | | | [...] | | | | | | | 7445-9264 Use NIGHT DOSE for | | | | | | | doses scheduled: HS, 3AM, | | | | | | | Nighttime 7395-6734, | | | | | | + [...] | | | | | | Starting 09/20/18 at 0159, | | | | | [...] PM PST | | | | | 12/26/18 at 1300 | | | | | | + +---------+ +---+-------+---+ +---+---+ | | | +---+---+ + +-------+ +------+---+---+ | sodium polystyrene (KAYEXALATE) | Given | 09/20/20 | 30 g | | | | 15 g/60 mL suspension 30 g 30 | | 18 8:29 | | | | | g, Oral, ONCE, 09/20/18 at | | AM PST | | [...] | | | BREAKFAST, First dose on Wed | | AM PST | | [...]
--- OUTSIDE RECORDS SUMMARY | ~2020-01-14 | XMS | Encounter Summary ---
Demographics + + + | Address | [address] | | | [place] [address] | + + + | Home Phone | | + + + | Preferred Language | Unknown | + + + | Marital Status | Single | + + + | Quaker Affiliation | Unknown | + + + | Race | Unknown | + + + | Ethnic Group | Unknown | + + + Author + + + | Author | [facility] | | | and [place] | + + + | Organization | [facility] | | | and [place] | + + + | Address | Unknown | + + + | Phone | Unavailable | + + + Support + + + + + | Name | Relationship | Address | Phone | + + + + + | Gia Ramos | ECON | [address] | | | | [address] [place] | | | | | [address] | | + + + + + Care Team Providers + +------+ + | Care Media Relations Specialist Name | Role | Phone | [...] + + | 07/03/ | Telephone | [facility] | [facility], | Care Plan | | 2019 | | GASTROENTEROLOGY | DANA [address] | | | | | [address] [place] | [place], [address] | | | | | [address] [place], [place] | [place], [place] | | | | | [address] | [address] | | | | | [phone] | | | +--------+ + + + [...]
--- OUTSIDE RECORDS SUMMARY | ~2020-01-14 | XMS | Encounter Summary ---
Demographics + + + | Address | [address] | | | [place] [address] | + + + | Home Phone [...] Author + + + | Author | [facility] | + + + | Organization | [facility] | + + + | Address | Unknown | + + + | Phone | Unavailable | + + + Support + + + + + | Name | Relationship | Address | Phone | + + + + + | Samantha Ramos | ECON | [address] # | | | | | [place] | | | | | [address] | | + + + + + Care Team Providers + +------+ + | Care Dealer Account Manager Name | Role | Phone | [...] | +--------+ + + + + | 10/09/ | Documentati | [facility] | Lab, Gi Procedure | Medical Records | | 2020 | on | [address] | | Review | | | | [facility] | | | | | | for Health and | | | | | | Healing, [address] | | | | | | [place], [place] | | | | | | [address] | | | | | | [phone] | | | +--------+ + + + [...] | | | | | [address] [facility] | | | | | | [place] [address] | | | | | | [phone] | | | | | | | | +--------+---------+ + + + documented as of this encounter Visit Diagnoses Not on filedocumented in this encounter"
--- OUTSIDE RECORDS SUMMARY | ~2020-01-14 | XMS | Encounter Summary ---
Demographics + + + | Address | [address] | | | [place] [address] | + + + | Home Phone | | + + + | Preferred Language | Unknown | + + + | Marital Status | Single | + + + | Druze Affiliation | NON | + + + [...] Samantha Ramos | ECON | [address] # | | | | | [place] | | | | | [address] | | + + + + + Care Team Providers + +------+ + | Care Hosiery Repairer Name | Role | Phone | + [...] | Activity | [address] | [address] | | | | | [place] Mailcode: [id number] | [address] | | | | | [place], [place] | [place], [place] | | | | | [address] | [address] | | | | | [phone] | [phone] | | | | | | | [...] [address] | | | | | | [address] [place], | | | | | | [place] [address] | | | | | | [phone] | | | | | | | [...] M.D. | | | | | | /PathologistT:10/17/06/f | | | | | | I [...] | | | | | | | M.D.PathologistAntonietai | | | | | | marcos Signed 10/18/2006 | | | | + + + + + + + + | Specimen | + + | | + + + + + + + | Performing | Address | City/State/Zipcode | Phone Number | | Organization | | | | + + + + + | [facility] | [address] | [place] [address] | | | PATHOLOGY | [address] | | | + + + + + | [facility] | [address] | [place] [address] | | | PATHOLOGY | [address] | | | + + + + + documented in this encounter Visit Diagnoses Not on filedocumented in this encounter"
--- OUTSIDE RECORDS SUMMARY | ~2020-01-14 | XMS | Encounter Summary ---
Demographics + + + | Address | [address] | | | [place] [address] | + + + | Home Phone | | + + + | Preferred Language | Unknown | + + + | Marital Status | Single | + + + | Jain Affiliation | NON | + + + [...] | Samantha Ramos | ECON | [address] # | | | | | [place] | | | | | [address] | | + + + + + Care Team Providers + +------+ + | Care Belt Fixer Name | Role | Phone | + [...] 10/09/ | Documentati | [facility] at [facility] | Lab, Gi Procedure | Medical Records | | 2020 | on | [address] | | Review | | | | [facility] | | | | | | for Health and | | | | | | Healing, [address] | | | | | | [place], [place] | | | | | | [address] | | | | | | [phone] | | | +--------+ + + + [...] | | | | [address] [facility] | | | | | | [place] [address] | | | | | | [phone] | | | | | | | | +--------+---------+ + + + documented as of this encounter Visit Diagnoses Not on filedocumented in this encounter"
--- OUTSIDE RECORDS SUMMARY | ~2020-01-14 | XMS | Encounter Summary ---
Demographics + + + | Address | [address] | | | [place] [address] | + + + | Home Phone [...] | Samantha Ramos | ECON | [address] # | | | | | [place] | | | | | [address] | | + + + + + Care Team Providers + +------+ + | Care Industrial Gas Fitter Name | Role | Phone | + +------+ + | Erich Yates PA-C | PCP | | + +------+ + Reason for Visit +--------+ + | Reason | Comments | +--------+ + | Other | | +--------+ + Encounter Details +--------+ + + + + | Date | Type | Department | Care Team | Description | +--------+ + + + + | 11/28/ | Telephone | Dig[facility]ive [facility] | Neri Steven MD | Other | | 2020 | | Center at [facility] [address] | [address] | | | | | [address] [facility] | [address] [place], | | | | | [facility] and | [place] [address] | | | | | [facility] [address] | [phone] | | | | | [place], [place] | | | | | | [address] | | | | | | [phone] | | | +--------+ + + + [...] | | | | | [address] [place], | | | | | | [place] [address] | | | | | | [phone] | | | | | | | | +--------+---------+ + + + documented as of this encounter Visit Diagnoses Not on filedocumented in this encounter"
--- OUTSIDE RECORDS SUMMARY | ~2020-01-14 | XMS | Encounter Summary ---
Demographics + + + | Address | [address] | | | [place] [address] | + + + | Home Phone | | + + + | Preferred Language | Unknown | + + + | Marital Status | Single | + + + | Episcopal Affiliation | NON | + + + | Race | White | + + + | Ethnic Group | Not or | + + + Author + + + | Author | [facility] | + + + | Organization | [facility] | + + + | Address | Unknown | + + + | Phone | Unavailable | + + + Support + + + + + | Name | Relationship | Address | Phone | + + + + + | Samantha Ramos | ECON | [address] | | | | | [place] | | | | | [address] | | + + + + + Care Team Providers + +------+ + | Care Fiber Analyst Name | Role | Phone | + +------+ + | Erich Yates PA-C | PCP | | + +------+ + Reason for Visit + + + | Reason | Comments | + + + | Pre-op evaluation | | + + + Encounter Details +--------+ + + + + | Date | Type | Department | Care Team | Description | +--------+ + + + + | 03/05/ | Telephone-S | Preoperative | | Pre-op evaluation | | 2020 | cheduled | [facility] at | | | | | | [facility] | | | | | | [address] | | | | | | [facility] | | | | | | and Healing Building | | | | | | [address] [place], [place] | | | | | | [address] | | | | | | [phone] | | | +--------+ + + + + Anesthesia Record + + + + + | Procedure Name | Responsible | Anesthesia Start | Anesthesia Stop Time | | | Anesthesiologist | Time | | + + + + + | GIP EGD (canceled) | | | | + + + + + + + | No events on file. | + + +------+ | Meds | +------+ + + + No medications | on file. | + + + + + | No agents on file. | + + + + | No blood administrations on file. | + + + + | No LDAs on file. | + + documented in this encounter Social History + + + +--------+------+ | [...] + + documented as of this encounter Patient Instructions Patient Instructions Beth Nash RN - 11/29/2019 9:16 AM PST PRE-GASTROINTESTINAL ENDOSCOPY/PROCEDURE INSTRUCTIONS Eating/Drinking Instructions: Follow instructions provided by [facility] Endoscopy. You should have received these instruction s by mail or email. If you have not received them, contact Endoscopy at [phone]. General Medications Instructions Oral iron: If you are scheduled for Double Balloon Enteroscopy please stop taking oral iron supplements 7 days prior to your procedure. Multivitamins containing iron are OK to continu e Anti-Diarrheals (Imodium, Lomotil, etc)- Stop 3 days prior to colonoscopy or flexible sigmo idoscopy only Continue to take all other medications as prescribed, including: ? Aspirin ? Pain medications ? Non-steroidal anti-inflammatory drugs (Advil, Motrin, Aleve, etc) On the morning of the procedure TAKE the following medications with a sip of water: METOPROLOL TARTRATE 50 MG TABLET OMEPRAZOLE 40 MG CAPSULE,DELAYED RELEASE INSULIN GLARGINE (U-100) 100 UNIT/ML SUBCUTANEOUS SOLUTION- Get day of dosage from endocrin ologist as we discussed On the morning of Procedure - OK to take these medications IF NEEDED: ONDANSETRON 8 MG DISINTEGRATING TABLET METOCLOPRAMIDE 10 MG TABLET HYDROCODONE 10 MG-ACETAMINOPHEN 325 MG TABLET On the morning of the procedure DO NOT TAKE the following medications: INSULIN LISPRO (U-100) 100 UNIT/ML SUBCUTANEOUS SOLUTION General Diabetes instructions: ? If you have a blood glucose meter, check your blood glucose the evening prior to surgery, when you wake up the day of surgery, and every 4 hours until you reach the hospital. Your blood glucose will be checked when you arrive at the hospital. ? If you experience a glucose level less than 70 during the time you are fasting, take 4 gl ucose tablets. If you do not have glucose tablets, you can drink 4 ounces (1/2 cup) of a cl ear sugar-containing beverage such as apple juice or kay john--ideally, do this at least t wo hours before your surgery. ? Wait 15 minutes, and recheck your glucose level ? If it is still less than 70, repeat the above treatment until your glucose level is over 70. ? Be sure to report the time and amount of any oral intake on arrival to the hospital. Insulin: If you are on both long acting and short acting (mealtime) insulin: ? Do not take short acting insulin/mealtime when fasting. Prior to fasting, take your usual dose of short acting insulin with your meals. ? If you take your long acting insulin in the morning, take 80% of the usual dose in the mo rning on the day of surgery--this equals 16 units-- HOWEVER Please Reach out to Brooks's End ocrinologist as we discussed to discuss day of dosing - due to his recent fluctuations and i nability to eat for a better day of dosage Do not take any or herbal supplements 14 days prior to your procedure. These drugs m ay interfere with normal blood clotting and may cause excessive bleeding and bruising during or after the procedure. If you need a pain medication for general purposes, use Tylenol as directed. OK to take it even on the morning of the procedure, if needed. If you are in doubt about any medications that you are taking, please contact our of fice. Other Important Guidelines Do not smoke, drink alcohol or use recreational drugs for 24 hours before your proce dure Watch for any change in your health condition. Let your GI provider know right away if you do not feel well. Do not wear makeup, perfume, lotions, deodorant, powder or hairspray. Do not wear any jewelry to the hospital. Wear loose, comfortable clothing. Leave all your valuables at home. Allow enough travel time so you re not late for your check in Please remember to brush your teeth the night before and the morning of your procedu re. Procedure check-in location: Day Stay Unit - [facility], 4th floor Room 4519 Procedure Check in Time: The Preoperative Medicine Clinic is not in the position to give you accurate information re garding your check in time. Going Home: Your procedure team will decide when you are medically ready to go home. Please arrange for a ride on the day of your procedure. Due to the effects of anesthesia, you will not be able to drive until the day following your procedure. You will not be able to drive yourself A responsible adult MUST escort you home. You may not drive yourself Your responsible adult can drive you or they can accompany you in a taxi, ride share (sarabia ch as Uber/Lyft), or public transportation. An Uber/Lyft/flatbed truck driver does not count as the r esponsible adult who accompanies you. Certified Medical Transport can transport you after surgery as long as a competent adult is waiting for you on arrival at your destination Although not mandatory, it is highly recommended that a patient has a responsible person with you to provide overnight monitoring/support following discharge. If you have questions or concerns after you go home, call your doctor s office. If it is after office hours, call the [facility] conveyor weigher operator at [phone] and ask them to page the on-c all GI provider. Your surgical team will decide when you are medically ready to go home. documented in this encounter Plan of Treatment +--------+---------+ + + + | Date | Type | Specialty | Care Team | Description | +--------+---------+ + + + | 01/24/ | Office | Surgery | Neri Steven MD | | | 2020 | Visit | | [address] | | | | | | [place], | | | | | | [place] [address] | | | | | | [phone] | | | | | | | | +--------+---------+ + + + documented as of this encounter Visit Diagnoses Not on filedocumented in this encounter"
--- OUTSIDE RECORDS SUMMARY | ~2020-01-14 | XMS | Encounter Summary ---
Demographics + + + | Address | [address] | | | [place] [address] | + + + | Home Phone | | + + + | Preferred Language | Unknown | + + + | Marital Status | Single | + + + | Mormonism Affiliation | Unknown | + + + | Race | Unknown | + + + | Ethnic Group | Unknown | + + + Author + + + | Author | [facility] | | | and [place] | + + + | Organization | [facility] | | | and [...] [place] | | | | | [address] | | + + + + + Care Team Providers + +------+ + | Care Brand Marketing Specialist Name | Role | Phone | + +------+ + | Erich Yates | PCP | | + +------+ + Encounter Details +--------+ + + + + | Date | Type | Department | Care Team | Description | +--------+ + + + + | 03/16/ | Orders Only | [facility] | Conversion | | | 2018 | | NEPH[place]OLOGY [place] | Transaction, | | | | | [address] | Provider Unknown | | | | | [address] [place], [place] | | | | | | [address] | (Fax) | | | | | [phone] | | | +--------+ + + + [...]
--- OUTSIDE RECORDS SUMMARY | ~2020-01-14 | XMS | Encounter Summary ---
Demographics + + + | Address | [address] | | | [place] [address] | + + + | Home Phone | | + + + | Preferred Language | Unknown | + + + | Marital Status | Single | + + + | Moravian Affiliation | Unknown | + + + | Race | Unknown | + + + | Ethnic Group | Unknown | + + + Author + + + | Author | [facility] | | | and [place] | + + + | Organization | [facility] | | | [...] [place] | | | | | [address] | | + + + + + Care Team Providers + +------+ + | Care Clinical Psychologist Name | Role | Phone | + [...] Description | +--------+---------+ + + + | 09/19/ | Surgery | [facility] | Tc Mora | CYSTOSCOPY W/ | | 2017 | | MED CTR OR INTRA OP | MD [address] | URETEROSCOPY W/ | | | | [address] | [place] | LASER LITHOTRIPSY | | | | [place] | [address] | WITH STENT PLACEMENT | | | | [address] | | | | | | [phone] | | | +--------+---------+ + + + [...] documented as of this encounter Progress Notes Spendlove, Tc Dahl, MD - 09/20/2018 8:23 AM PSTFormatting of this note might be differ ent from the original. [facility] Urology Progress Note Brooks Marquez is now [...] hours: I/O last 3 completed shifts: In: 0 [I.V.:2200] Out: 328 [Urine:325; Blood:3] PHYSICAL EXAM: [...] + | [facility] | [address] | [place] | [phone] | | [facility] | | [address] | | | - LABORATORY | | [...] | | | | | mmol/L | [facility] | | | | | | MEDICAL | | | | | | CENTER - | | | | | | LABORATORY | | + + + + + + | K | 5.7 (H) | 3.5 - 5.1 | [facility] | | | | | mmol/L | [facility] | | | | | | [...] | | | | | | [facility] | | | | | | MEDICAL [...] not | 37 (L)Comment: | >=60 | [facility] | | | | GLOMERULAR FILTRATION | mL/min/1.73m2 | [facility] | | | PANA[place]IAN | RATE,ESTIMATED | | MEDICAL | | | | mL/min/1.39h8Evst than | | CENTER - | | [...] + | BUN/Creatin | 19.4 | | HIGINIO | | | ine Ratio | | [...] [address] | [place] | [phone] | | [facility] | | [address] | | | - LABORATORY | | [...] [address] | [place] | [phone] | | [facility] | | [address] | | | - LABORATORY | | [...] this test. These results should be | [facility] | | integrated into the clinical context for interpretation. | [facility] | | | - LABORATORY | + + + + + + + + | Performing | Address | City/State/Zipcode | Phone Number | | Organization | | | | + + + + + | [facility] | [address] | [place], [place] | [phone] | | [facility] | | [address] | | | - LABORATORY | | [...] + | [facility] | [address] | [place] | [phone] | | [facility] | | [address] | | | - LABORATORY | | [...] | Urine | | Yellow, Straw | CURLY | [...] - 1.030 | [facility] | | | Dwarf | | | [facility] | | [...] [address] | [place] | [phone] | | [facility] | | [address] | | | - LABORATORY | | [...] [address] | [place] | [phone] | | [facility] | | [address] | | | - LABORATORY | | [...] + | [facility] | [address] | [place] | [phone] | | [facility] | | [address] | | | - LABORATORY | | [...] [address] | [place] | [phone] | | [facility] | | [address] | | | - LABORATORY | | [...] + | [facility] | [address] | [place] | [phone] | | [facility] | | [address] | | | - LABORATORY | | [...] (H) | 7 - 18 mg/dL | [facility] | | | | | | [facility] | | | | | | MEDICAL | | | | | | CENTER - | | | | | | LABORATORY | | + + + + + + | Creatinine | 2.07 (H) | 0.60 - 1.30 | [facility] | | | | | mg/dL | [...] mL/min/1.73m2 | [facility] | | | PANAMANIAN | RATE,ESTIMATED | | MEDICAL | | | | mL/min/1.74p6Fabz than | | CENTER - | | [...] [address] | [place] | [phone] | | [facility] | | [address] | | | - LABORATORY | | [...] ST. | [address] | [place] | [phone] | | [facility] | | [address] | | | - LABORATORY | | [...] MD | | | | | | ([id number]) on 09/21/2018 | | | | | [...] [address] | [place] | [phone] | | [facility] | | [address] | | | - LABORATORY | | [...] [address] | [place] | [phone] | | [facility] | | [address] | | | - LABORATORY | | [...] (H) | 98 - 109 mmol/L | [facility] | | | | | [...] mL/min/1.73m2 | [facility] | | | PANAMANIAN | RATE,ESTIMATED | | MEDICAL | | | | mL/min/1.99a9Zoaw than | | CENTER - | | [...] [address] | [place] | [phone] | | [facility] | | [address] | | | - LABORATORY | | [...] [address] | [place] | [phone] | | [facility] | | [address] | | | - LABORATORY | | [...] | + +---------+ + + [place] Ailyn-Chirag Jacquelin No Erin (09/19/2018 10:11 PM PST) + + | [...] not | 42 (L)Comment: | >=60 | [facility] | | | | GLOMERULAR FILTRATION | mL/min/1.73m2 | [facility] | | | PANA[place]IAN | RATE,ESTIMATED | | MEDICAL | | | | mL/min/1.03a4Tjot than | | CENTER - | | [...] [address] | [place] | [phone] | | [facility] | | [address] | | | - LABORATORY | | [...] [address] | [place] | [phone] | | [facility] | | [address] | | | - LABORATORY | | [...] [facility] | | | | | | at:[phone]. | | | | + + + [...] + + | Performed at: 01 - [address] | REFERENCE LAB | | [place], [place] [id number] Electronic Page Makeup System Operator: Sarabjit Love MD, Phone: | [facility] | | [phone] | | + + + + + + + + | Performing | Address | City/State/Zipcode | Phone Number | | Organization | | | | + + + + + | REFERENCE LAB | [address] | [place], [place] | [phone] | | [facility] | [place] | [address] | | + + + + + [...] ST. | [address] | [place] | [phone] | | [facility] | | [address] | | | - LABORATORY | | [...] | | | + +--------+ + +------+------+ + +---+ | | | + +---+ | dextrose 50% injection 12.5 g | | | 12.5 g, Intravenous, PRN, Low | | | Blood Sugar, Starting Tue | | | 09/19/18 at 2325 | | + +---+ | | | + +---+ + +-------+ +--------+---+---+ | HYDROmorphone (DILAUDID) | [...] PST | | | | +-------+ +--------+---+---+ + +---+ | | | [...] | | | | | | | 4942-2529 Use NIGHT DOSE for | | | | | | | doses scheduled: HS, 3AM, | | | | | | | Nighttime 5116-7120, | | | | | | + +-------+ +---------+---+ + +-------+ +---------+---+ + | Given | 09/20/20 | 2 Units | | Arm-Left | | | 18 8:49 | | | Upper | | | AM PST | | | | +-------+ +---------+---+ + + +---+ | | [...]
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
--- OUTSIDE RECORDS SUMMARY | ~2020-01-14 | XMS | Encounter Summary ---
Demographics + + + | Address | [address] | | | [place] [address] | + + + | Home Phone | | + + + | Preferred Language | Unknown | + + + | Marital Status | Single | + + + | Baptism Affiliation | Unknown | + + + [...] [place] | | | | | [address] | | + + + + + Care Team Providers + +------+ + | Care Labor Utilization Superintendent Name | Role | Phone | + +------+ + | Erich Yates | PCP | | + +------+ + Encounter Details +--------+ + + + + | Date | Type | Department | Care Team | Description | +--------+ + + + + | 01/11/ | Orders Only | [facility] | Conversion | | | 2018 | | NEPHROLOGY [place] | Transaction, | | | | | [address] | Provider Unknown | | | | | [address] [place], [place] | | | | | | [address] | (Fax) | | | | | [phone] | | | +--------+ + + + [...]
--- OUTSIDE RECORDS SUMMARY | ~2020-01-14 | XMS | Encounter Summary ---
Demographics + + + | Address | [address] | | | [place] [address] | + + + | Home Phone [...] + + + | Author | [facility] | + + + | Organization | [facility] | + + + | Address | Unknown | + + + | Phone | Unavailable | + + + Support + + + + + | Name | Relationship | Address | Phone | + + + + + | Samantha Ramos | ECON | [address] # | | | | | [place] | | | | | [address] | | + + + + + Care Team Providers + +------+ + | Care [facility] Dental Lab Technician Name | Role | Phone | [...] | Only | [facility] [address] | JUNIOR NET DEVELOPER [address] | | | | | [address] | [address] | | | | | Mailcode: [id number] | [place] [address] | | | | | [facility] | [phone] | | | | | [place], [place] | | | | | | [address] | | | | | | [phone] | | | +--------+ + + + [...] | | | | | [address] [place], | | | | | | [place] [address] | | | | | | [phone] | | | | | | | | +--------+---------+ + + + + +---------+--------+ + + [...]
--- OUTSIDE RECORDS SUMMARY | ~2020-01-14 | XMS | Encounter Summary ---
Demographics + + + | Address | [address] | | | [place] [address] | + + + | Home Phone | | + + + | Preferred Language | Unknown | + + + | Marital Status | Single | + + + | Methodist Affiliation | NON | + + + | Race | White | + + + | Ethnic Group | Not or | + + + Author + + + | Author | [facility] | + + + | Organization | [facility] | + + + | Address | Unknown | + + + | Phone | Unavailable | + + + Support + + + + + | Name | Relationship | Address | Phone | + + + + + | Samantha Ramos | ECON | [address] | | | | | [place] | | | | | [address] | | + + + + + Care Team Providers + +------+ + | Care Shear Operator Name | Role | Phone | + +------+ + | Rosa Pascual DO | PCP | | + +------+ + Reason for Referral Consultation (Routine) +--------+--------+ + + + + | Status | Reason | Specialty | Diagnoses / | Referred By | Referred To | | | | | Procedures | Contact | Contact | +--------+--------+ + + + + | Closed | | Endocrinology | Diagnoses | [facility] | | | | Diabetes & | Diabetic | MD Eunice | Adult Ppv | | | | Metabolism | ketoacidosis | [address] | [address] | | | | | without | [address] | [address] | | | | | coma | Rd | Physician's | | | | | associated | [place], [place] | [address] | | | | | with type 1 | [address] | [address] | | | | | diabetes | Phone: | [place], [place] | | | | | mellitus | [phone] | [address] | | | | | (FORMERLY [facility]) Type | Fax: | Phone: | | | | | 1 diabetes | [phone] | [phone] | | | | | mellitus | | Fax: | | | | | with | | [phone] | | | | | hyperglycemi | | | | | | | a (FORMERLY [facility]) | | | | | | | Procedures | | | | | | | CONSULT TO | | | | | | | ENDOCRINOLOG | | | | | | | Y | | | +--------+--------+ + + + + Other (Routine) +--------+--------+ + + + + | Status | Reason | Specialty | Diagnoses / | Referred By | Referred To | | | | | Procedures | Contact | Contact | +--------+--------+ + + + + | Closed | | Endocrinology | Diagnoses | Rey | Leila [facility] | | | | Diabetes & | Type 1 | MD Eunice | [address] | | | | Metabolism | diabetes | [address] | [address] | | | | | mellitus | [address] | Loop | | | | | with | Rd | Mailcode: | | | | | hyperglycemi | [facility], [place] | [address] | | | | | a (FORMERLY [facility]) | [phone] | Physician's | | | | | Procedures | Phone: | [address] | | | | | CONSULT TO | [phone] | 140 | | | | | ADULT | Fax: | [place], [place] | | | | | DIABETES - | [phone] | [phone] | | | | | EDUCATION | | Phone: | | | | | (DIABETES | | [phone] | | | | | SELF-MANAGEM | | Fax: | | | | | ENT) | | [phone] | +--------+--------+ + + + + Reason for Visit + + + | Reason | Comments | + + + | Hyperglycemia | | + + + | Abdominal pain | | + + + AUTH/CERT +--------+--------+ + + + + | Status | Reason | Specialty | Diagnoses / | Referred By | Referred To | | | | | Procedures | Contact | Contact | +--------+--------+ + + + + | Closed | | | | | | +--------+--------+ + + + + Encounter Details +--------+ + + + + | Date | Type | Department | Care Team | Description | +--------+ + + + + | 08/25/ | Hospital | [facility] [address] | [address] | | | 2015 - | Encounter | Nathalia Bernardo MD [address] | | | | | [address] [facility] | [address] | | | 08/27/ | | [place], [place] | [place], [place] | | | 2014 | | [address] | [address] | | | | | [phone] | [phone] | | | | | | | | | | | | Harris Martínez MD | | | | | | Chrissie | | | | | | [facility] | | | | | | Center [address] | | | | | | [address] [place], | | | | | | [place] [address] | | | | | | [phone] | | | | | | | | | | | | Jeff Diggs, | | | | | | ,[facility] [address] | | | | | | [address] | | | | | | [place], [place] | | | | | | [address] | | | | | | [phone] | | | | | | | | | | | | Eunice Parada, | | | | | | [address] | | | | | | [address] | | | | | | [place], [place] | | | | | | [address] | | | | | | [phone] | | | | | | | | | | | | Vern Garnica, | | +--------+ + + + + [...] + + + | Blood Pressure | 173/128 | 08/27/2015 1:00 PM | | | | | PST | | + + + + + | Pulse | 118 | 08/27/2015 1:00 PM | | | | | PST | | + + + + + | Temperature | 36.7 C (98.1 F) | 08/27/2015 12:34 PM | | | | | PST | | + + + + + | Respiratory Rate | 18 | 08/27/2015 12:34 PM | | | | | PST | | + + + + + | Oxygen Saturation | 99% | 08/27/2015 12:34 PM | | | | | PST | | + + + + + | Inhaled Oxygen | - | - | | | Concentration | | | | + + + + + | Weight | 64.8 kg (142 lb 14.4 | 08/26/2015 1:54 AM | | | | oz) | PST | | + + + + + | Height | 188 cm (6' 2") | 08/26/2015 1:54 AM | | | | | PST | | + + + + + | Body Mass Index | 18.35 | 08/26/2015 1:54 AM | | | | | PST | | + + + + + documented in this encounter Discharge Summaries Eunice Parada MD - 08/27/2015 2:42 PM PST Internal Medicine Clinical Hospitalist Service DISCHARGE SUMMARY Attending Physician: Eunice Parada MD PCP: Rosa Pascual DO Admission Date: 08/25/2015 Discharge Date: 08/27/2015 Diagnoses Principal Final Diagnosis: 1. Diabetic ketoacidosis (DKA), hyperglycemia in setting of type 1 diabetes. Additional Diagnoses: 2. Acute on chronic abdominal pain 3. Nausea 4. Hypertension Procedures 1. Gastric emptying study Consulting Services: Communications Operator Reason For Admission: Diabetic ketoacidosis. Hyperglycemia, acute on chronic abdominal pain Hospital Course: Please refer to hospital record for details, but briefly: Brooks Marquez (Keith) is a 24 year old man with poorly controlled type 1 diabetes mellitus ( HgbA1c in 06/2015 of 12.5%) here with diabetic ketoacidosis in setting of impaired insulin a bsorption due to subcutaneous scar tissue with concurrent lactic acidosis (now resolved), no clear infectious etiology for trigger of DKA. Also with acute on chronic epigastric pain pr obably secondary to gastroparesis but has not undergone diagnostic testing for this (underwe nt EGD). Diabetic ketoacidosis without coma associated with type 1 diabetes mellitus (HCC) c/b hypon atremia, hypokalemia - No acute infectious triggers identified and likely from poor absorpti on of glargine/lispro on account of repeated injection into scar tissue. Only borderline gap on account of respiratory acidosis of unclear etiology other than possible central depressi on from his centraly-acting antiemetics (or does patient have chronic metabolic acidosis fro m long-standing nausea/vomiting?). Taking 45 units glargine (up from 30 units 4 months prior ) just before admission. He was placed on an insulin drip on admission and insulin requireme nt calculated. Given glargine 20 units on 08/26 but was hypoglycemic the next morning dose gl argine dose reduced to 15 units daily. In regards to his DKA his electrolyte abnormalities q uickly resolved after fluid resuscitation with IVF and electrolyte repletion (K and Mg). Lisbeth toussaint educator consulted and saw patient who recommended patient be referred to endocrinolog y and diabetes education here at [facility] which were completed. He was counseled on how to rotat e sites for his insulin injections. - Continue glargine 15 units daily + lispro 1 unit per 15 g carb - Outpatient referral to endocrinology and director operations - Will need outpatient follow up for routine diabetes screening including eye and foot exam . Follow up on other CV risk factor reduction including HTN (see below). Acute on chronic epigastric pain - suspect due to gastroparesis, has multiple months of abd ominal pain without clear etiology. Per review of care everywhere has been seen in the ER qu ite a bit for this. CT abd/pelvis with IV contrast done in 11/2013 and 06/2014 unremarkable. Gastric emptying study here consistent with gastroparesis. - Recommend scheduled reglan if patient amenable - Improved BG control as this should improve gastroparesis - Limit narcotics as able. Patient concerned about needing pain medications as outpatient s o discharged with a few tablets of dilaudid until follow up with PCP 09/02. -APAP 500mg PO Q6H PRN -zofran PRN for nausea Hypertension Patient noted to have elevated BP to 130s-170s/90s-120s while here in the hospital. Reports previously being told he had high BP at times. Not in pain during these episodes. Given sma ll amount of protein in UA and history of diabetes would like to better control his BP. - Start lisinopril 10mg daily - uptitrate as outpatient as needed. May need additional agen ts to improve BP control - Follow up with PCP on 09/02 for repeat BP check and BMP for monitoring of electrolytes and kidney function. Fissure in skin of foot - without evidence of acute infection. Eucerin cream prn. Lactic acid acidosis - suspect type A due to dehydration and quickly resolved on repeat anup ck. Abdominal exam unsuggestive of acute abdomen/ischemic gut. High serum osmolar gap - unclear etiology. No reported ingestions, alcohol panel negative Metabolic acidosis with respiratory acidosis - RR seems to be improving so perhaps retainin g less CO2. No acute indication for repeat ABG. Can consider if change in clinical picture t o further clarify respiratory acidosis. Dilutional hyponatremia - due to DKA. Resolved. Notable Labs and Study Results During Hospitalization Chemistries: Last 72 Hours (or 3 results): Recent Labs 08/26/15 0635 08/26/15 1401 08/27/15 0816 08/27/15 0914 08/27/15 1117 08/27/15 1354 NA 142 -- 140 -- 142 -- -- -- K 4.1 -- 4.1 -- 3.7 -- -- -- CL 109* -- 106 -- 107 -- -- -- BICARB 29 -- 28 -- 31 -- -- -- BUN 12 -- 11 -- 10 -- -- -- CR 0.62* -- 0.66* -- 0.67* -- -- -- GLU 89 < > 176* < > 96 110* 197* 191* CA 7.6* -- 7.8* -- 8.0* -- -- -- < > = values in this interval not displayed. 12/2 AM BG of 54 Admission BG of 850 Admission BMP Na 128, K 4.5, Cl 89, CO2 26, BUN 18, Cr 0.76. CBC with diff last 72 hours (or 3 results) Recent Labs 08/25/15 2133 08/25/15 2141 WBC 7.52 -- HB 13.4* 14.6 HCT 40.0* 43 PLT 290 -- NEUTROPERC 68.2 -- LYMPHPERC 23.5 -- MONOPERC 6.4 -- BASOPERC 0.9 -- EOSPERC 0.5* -- Liver Tests: Last 72 hours (or 3 results) Recent Labs 08/25/15 2133 AST 23 ALT 37 TBILI 0.4 AP 111 ALB 3.3* TP 7.1 Admission ABG - ph 7.31/pCO2 53/HCO3 26 Urine culture negative UA >500 glucose, small blood, no bacteria, protein 30 ECG - sinus tachycardia HR to 120s-130s NM Gastric Emptying Study 08/27/15 IMPRESSION: Patient had been administered reglan, prilosec and dilaudid prior to exam, which are known to affect gastric emptying. Despite this, the gastric emptying is markedly delayed, consistent with gastroparesis. Physical Exam (Day of Discharge) Last Vitals: BP 173/128 | Pulse 118 | Temp 36.7 C (98.1 F) | RR 18 | Ht 1.88 m (6' 2") | Wt 64.819 k g (142 lb 14.4 oz) | SpO2 99% | BMI 18.34 kg/(m^2) 24 Hour Vital Min/Max: Systolic (24hrs), Av mmHg, Min:123 mmHg, Max:180 mmHg Diastolic (24hrs), Av mmHg, Min:86 mmHg, Max:132 mmHg Pulse Min: 95 Max: 122 Temp Min: 36.7 C (98.1 F) Max: 36.8 C (98.2 F) Resp Min: 16 Max: 18 SpO2 Min: 98 % Max: 100 % Intake/Output Summary (Last 24 hours) at 08/27/15 1442 Last data filed at 08/26/151999 Gross per 24 hour Intake 40 ml Output 0 ml Net 40 ml General: Thin adult man laying in hospital bed, comfortable appearing no acute distress Eyes: anicteric sclera, EOMI ENT: neck supple, MMM Resp: CTAB with no rales or rhonchi CV: normal S1 and S2, tachycardic but regular, no m/r/g appreciated GI: soft, NTND Extremities: no c/c/e Skin: no rashes or lesions noted Outstanding labs/studies: none Discharge Recommendations: Discharge Medication List as of 08/27/2015 2:51 PM START taking these medications Details acetaminophen 500 mg oral tablet Take 1 tablet by mouth every four hours as needed for up t o 30 days. Will need to get additional refills (if indicated) from PCP or specialist, Disp-1 00 tablet, R-0, OTC HYDROmorphone 2 mg oral tablet Take 1-2 tablets by mouth every six hours as needed for alley re pain (for pain not relieved with tylenol) for up to 7 days. Will need to get additional r efills (if indicated) from PCP or specialist, Disp-28 tablet, R-0, Print Prescription lisinopril 10 mg oral tablet Take 1 tablet by mouth once daily for 30 days. Will need to ge t additional refills (if indicated) from PCP or specialist, Disp-30 tablet, R-0, eRx glucagon (GLUCAGON EMERGENCY) 1 mg Injection Kit Inject 1 mg into muscle as needed for CBG < 70mg/dL CONTINUE these medications which have CHANGED or have new prescriptions Details insulin glargine (LANTUS) 100 unit/mL subcutaneous solution Inject 15 Units under the skin (SUBC) once daily in the morning., Disp-3 vial, R-3, Print Prescription CONTINUE these medications which have NOT CHANGED Details Blood Sugar Diagnostic (ASCENSIA MICROFILL) In Vitro Strip use to test blood glucose 5x ahmet carlota, Disp-150, R-1, Fax Insulin Lispro (Human) (HUMALOG PEN) 100 unit/mL Subcutaneous Insulin Pen inject 1 unit sub -q for every 10 grams of carbohydrates, Disp-1 box (5 pens), R-6, Print Prescription Insulin Syringe-Needle U-100 (BD ULTRAFINE INSULIN) 1 mL 31 x 5/16" Misc.(Non-Drug; Combo R oute) Syringe administer lantus as recommended by physician, Disp-1 box, R-6, Print Prescrip tion metoclopramide HCl 10 mg oral tablet Take 10 mg by mouth every six hours as needed for naus ea/vomiting., Historical Med omeprazole 40 mg oral capsule,delayed release(DR/EC) Take 40 mg by mouth once daily., Histo rical Med ondansetron ODT 8 mg oral tablet,disintegrating Dissolve 8 mg in mouth every twelve hours a s needed., Historical Med Diet Diabetic (Consistent Carbohydrate) Diabetic diet (Consistent Carbohydrate)- You should be careful to control your daily inta ke of carbohydrates and ensure that you are consuming the same amount of carbohydrates each day. Your health care provider will work with you to determine the appropriate amount of ca rbohydrates your body needs. Activity No activity restrictions Condition on Discharge Good Destination: Destination: Home Schedule the following appointment(s) when you get home Follow up with ROSA PASCUAL DO On 09/02/2015. Specialty: Family Medicine Why: For post-hospitalization follow-up; Appt at 740am Contact information [facility] [address] [place] [facility] [place] [address] Follow up with [facility] at [facility] 1st Floor. Specialty: Endocrinology, Diabetes & Metabolism Why: To establish care; follow up on referral to endocrinology if you do not hear back fr om them in 1 week Contact information [address] [facility] [place] [address] [facility] [address] Additional information: [facility], 1st floor [address] [place], [place] [id number] [facility] just past [facility] for [facility]. Turn right immediately past the Pavilion. The entrance to [facility] will be on your right just beyond the main doors to the Pavili. An elevator in e parking garage will take patients directly to the floor of the clinic. The [facility] is located on the 1st floor. Please check in at the motel front desk clerk. M aps and directions can be found at: [email or web address] Other Discharge Orders and Instructions It was a pleasure taking care of you while you were here at [facility] 1) Take all your medications as prescribed especially your insulin and blood pressure medic ations 2) Follow up with your PCP Dr. Pascual on 09/02 at 740am. 3) Make sure to rotate location of where you inject your insulins and keep close track of y our blood sugars 4) We will make referral to [facility] endocrinology but please follow up with us if you do not h ear back within a week for scheduling 5) Take opiate pain medications for your abdominal pain sparingly and follow up with your P CP about long-term pain plan 6) Take your blood pressure medication and follow up with blood pressure readings with your PCP If you have worsening abdominal pain, increasing blood sugars that do not correct with your sliding scale, then please call your PCP or come to the nearest ER for evaluation. Referrals placed to [facility] endocrinology and director operations This note was routed to patient's PCP in [employer]. EUNICE PARADA MD Pager - [phone] Rigger Helperhorticulture superintendent Clinical and Medicine [facility] I spent 45 minutes coordinating care for this patient's discharge, of which 30 minutes were spent [id number] with the patient as well as with patient's mother, nursing, diabetes edu cator of which greater than 50% was spent counseling the patient regarding ongoing treatment of his diabetes, importance of follow up with PCP and endocrinology, diabetes counseling, H [place] counseling, care coordination. documented in this encounter Discharge Instructions Instructions Tc Vazquez RN - 08/27/2015Patient Education Materials: Additional Instructions: Pt provided with information about new lisinopril. Diabetes education provided by gas system operator RNLiz. Pt reports he has all DM supplies at home. Discharge Nurse: Tc Vazquez RN Date: 08/27/2015 Discharge Time: 2:49 PM documented in this encounter Medications at Time of Discharge + + + +---------+ + + | Medication | Sig | Dispensed | Refills | Start | End Date | | | | | | Date | | + + + +---------+ + + | Blood Sugar | use to test blood | 150 | 1 | 06/08/20 | | | Diagnostic (ASCENSIA | glucose 5x daily | | | 07 | | | MICROFILL) In Vitro | | | | | | | Strip | | | | | | + + + +---------+ + + | glucagon 1 mg/mL | Inject 1 mg into the | 1 each | 0 | 08/27/20 | | | injection recon soln | muscle (IM) as | | | 15 | | | | needed for | | | | | | | hypoglycemia (CBG | | | | | | | less than 70 mg/dL). | | | | | + + + +---------+ + + | Insulin | administer lantus as | 1 box | 6 | 11/01/19 | | | Syringe-Needle U-100 | recommended by | | | 08 | | | (BD ULTRAFINE | physician | | | | | | INSULIN) 1 mL 31 x | | | | | | | 02/08" | | | | | | | Misc.(Non-Drug; | | | | | | | Combo Route) Syringe | | | | | | + + + +---------+ + + | metoclopramide HCl | Take 10 mg by mouth | | 0 | | | | 10 mg oral tablet | every six hours as | | | | | | | needed for | | | | | | | nausea/vomiting. | | | | | + + + +---------+ + + | omeprazole 40 mg | Take 40 mg by mouth | | 0 | | | | oral capsule,delayed | once daily. | | | | | | release(DR/EC) | | | | | | + + + +---------+ + + | ondansetron ODT 8 | Dissolve 8 mg in | | 0 | | | | mg oral | mouth every twelve | | | | | | tablet,disintegratin | hours as needed. | | | | | | g | | | | | | + + + +---------+ + + | acetaminophen 500 | Take 1 tablet by | 100 | 0 | 12/02/20 | | | mg oral tablet | mouth every four | tablet | | 15 | 6 | | | hours as needed for | | | | | | | up to 30 days. Will | | | | | | | need to get | | | | | | | additional refills | | | | | | | (if indicated) from | | | | | | | PCP or specialist | | | | | + + + +---------+ + + | HYDROmorphone 2 mg | Take 1 to 2 tablets | 28 | 0 | 08/27/20 | | | oral tablet | by mouth every six | tablet | | 15 | 5 | | | hours as needed for | | | | | | | severe pain (for | | | | | | | pain not relieved | | | | | | | with tylenol) for up | | | | | | | to 7 days. Will | | | | | | | need to get | | | | | | | additional refills | | | | | | | (if indicated) from | | | | | | | PCP or specialist | | | | | + + + +---------+ + + | lisinopril 10 mg | Take 1 tablet by | 30 | 0 | 08/27/20 | | | oral tablet | mouth once daily for | tablet | | 15 | 6 | | | 30 days. Will need | | | | | | | to get additional | | | | | | | refills (if | | | | | | | indicated) from PCP | | | | | | | or specialist | | | | | + + + +---------+ + + documented as of this encounter Progress Notes Liz Early RN - 08/27/2015 2:29 PM PST Diabetes Education initial Note Diabetes education consult request for concern about injecting in same site w/o rotation. Hx: DM1, chronic epigastric pain. Adm: DKA. Lab Results Component Value Date A1C 11.0 11/01/2007 Care Everywhere: A1C 12.1% (08/14/13) Care Everywhere: A1C 12.5% (07/07/15) Assessment Pt says he's had diabetes since age 11. Acknowledges in earlier years he has not been mind ful of his diabetes, but is stating desire to establish with an Fleet Mechanic. Has not hooper d an growth media mixer mushroom since "Dr Roque" during pediatric years at [employer] [facility]. Pt uses insulin syringe and vial for Lantus and insulin pens for Humalog. Pt also says he' s been lazy about injecting in the same site for a long time and noticed the bump under his skin. Acknowledges noticing the amount of insulin he needs is very different while on the i nsulin drip compared to what he was taking at home. States willingness to come back to [facility] for endocrinology care, lives in [facility]. Hypoglycemia: reports 1-2 occurrences per week, states ability to feel symptoms when 60 or 69, will check BG when low, then drink juice or keeps Pepsi in his jeep. Pt says he does not need diabetes supplies Education provided Reviewed site rotation Locations for SQ injection Answered questions about insulin pumps Resources--support group recommended Recommended glucagon pen and discussed importance Education outcome Pt receptive to this RN and engaged in dialogue. Pt's mom arrived near the end of this ses steven. Pt expresses interest in establishing with growth media mixer mushroom here at [facility], and is willing to review/discuss further insulin pumps with endocrinology team. Informed pt that insulin pump does not take away the work (still need to check BG levels an d count carbs and give bolus doses) Recommendations 1. Encourage pt to attend support group 2. Encourage improving DM self management and care 3. Refer to [facility] diabetes center for endocrinology care 4. Refer to director operations in diabetes center for updating carb counting skills Nursing Assessment of Patient Stability Risk Moderately stable with DM self management. Pt understands importance of site rotation and lack of site rotation likely contributed to this admission, however pt would benefit from sarabia pportive endocrinology team considering recent A1C 12.5%. Plan Following Possible dc today Liz Early, MPH, RD, LD, RN, CDE Inpatient Diabetes Education Pager: [phone] Eunice Rich MD - 08/26/2015 9:03 AM PST Internal Medicine Clinical Hospitalist Service Progress Note ID/CC: Brooks Marquez (Keith) is a 24 year old man with poorly controlled type 1 diabetes trent litus (HgbA1c in 06/2015 of 12.5%) here with diabetic ketoacidosis in setting of impaired in sulin absorption due to subcutaneous scar tissue with concurrent lactic acidosis (now [facility] ed), no clear infectious etiology for trigger of DKA. Also with acute on chronic epigastric pain probably secondary to gastroparesis. 24 Hour Events: Admitted overnight from the ER with DKA and started on EndoTool. Rapid improvement in BGs r emains on drip awaiting dosing to stabilize prior to transition to subQ regimen. Current Symptoms/Subjective: Alin's main complaint is severe abdominal pain. He describes it at "teardrop" starting und er his sternum and then radiating out through most of his abdomen. Also associated with some nausea. Tearful in describing abdominal pain states he has been dealing with it for about 8 months. Confirmed with patient that he injects insulin into same area on his abdomen every day. Called PCP office, Dr. Pascual who is unfortunately out for the week but spoke with covering staff. Patient is new to PCP office about 2 months ago. Multiple no show appointments and se ems to present to ER for care. Did have report of EGD in 02/2014 at [facility] that was unremarkabl e and this is when he was started on PPI as well as empiric therapy for H.pylori. He carries diagnosis of gastroparesis related to his diabetes but has not had a formal gastric emptyin g study completed. ER notes have classified his episodes of nausea/vomiting/abdominal pain w ith cyclic vomiting syndrome. Physical Examination: Last 24 hour min/max Temp: 36.8 C (98.2 F) Temp Min: 36.7 C (98.1 F) Max: 36.8 C (98.2 F) Pulse: 100 Pulse Min: 96 Max: 138 Resp: 16 Resp Min: 10 Max: 23 BP: (!) 153/95 mmHg BP Min: 113/81 Max: 183/121 SpO2: 98 % SpO2 Min: 98 % Max: 100 % Body mass index is 18.34 kg/(m^2). General: Young adult man, laying in hospital bed uncomfortable appearing and tearful in opal n Head and Eyes: Head atraumatic. EOMI, anicteric sclera ENT: missing several front teeth, traumatic Neck: Supple. Pulmonary: clear bilaterally, no w/r/r Cardiovascular: S1 and S2 present. Mildly tachycardic but regular, no m/r/g appreciated GI: Soft, thin abdomen, tender to palpation throughout especially in epigastric region, nor mal bowel tones. Fibrous area noted on left side of umbilicus Extremities: no c/c/e Skin: no rashes or lesions noted Laboratory Interpretation: Chemistries: Last 72 Hours (or 3 results): Recent Labs 08/25/15 2133 08/25/15 2141 08/26/15 0237 08/26/15 0635 08/26/15 0653 08/26/15 0730 08/26/15 0838 NA 128* 128* -- 142 -- 142 -- -- -- K 4.5 4.8 -- 3.3* -- 4.1 -- -- -- CL 89* 90.0* -- 103 -- 109* -- -- -- BICARB 26 -- -- 29 -- 29 -- -- -- BUN 18 18 -- 13 -- 12 -- -- -- CR 0.76 0.8 -- 0.68* -- 0.62* -- -- -- GLU 850* >700* < > 267* < > 89 118* 168* 193* CA 8.2* -- -- 7.9* -- 7.6* -- -- -- < > = values in this interval not displayed. CBC with diff last 72 hours (or 3 results) Recent Labs 08/25/15 2133 08/25/15 2141 WBC 7.52 -- HB 13.4* 14.6 HCT 40.0* 43 PLT 290 -- NEUTROPERC 68.2 -- LYMPHPERC 23.5 -- MONOPERC 6.4 -- BASOPERC 0.9 -- EOSPERC 0.5* -- HgbA1c 06/2015 (PCP visit) - 12.5% Lactate 3.9 --> 1.0 Alcohol levels - undetected Imaging Interpretation: No new imaging Assessment and Plan Brooks Roque" Jimmy is a 24 year old man with poorly controlled type 1 diabetes mellitus ( HgbA1c in 06/2015 of 12.5%) here with diabetic ketoacidosis in setting of impaired insulin a bsorption due to subcutaneous scar tissue with concurrent lactic acidosis (now resolved), no clear infectious etiology for trigger of DKA. Also with acute on chronic epigastric pain pr obably secondary to gastroparesis but has not undergone diagnostic testing for this. Diabetic ketoacidosis without coma associated with type 1 diabetes mellitus (HCC) c/b hypon atremia, hypokalemia - No acute infectious triggers identified and likely from poor absorpti on of glargine/lispro on account of repeated injection into scar tissue. Only borderline gap on account of respiratory acidosis of unclear etiology other than possible central depressi on from his centraly-acting antiemetics (or does patient have chronic metabolic acidosis fro m long-standing nausea/vomiting?). Taking 45 units glargine (up from 30 units 4 months prior ) just before admission. Suspect true needs closer to 30 but will await to see what is calcu lated based of needs on insulin drip. Cbgs and hyponatremia have corrected rapidly with insu chris gtt and now becoming mildly hypokalemic so repleting appropriately. Marked improvement i n tachycardia suggests he's approaching euvolemic state s/p 3L NS in ED. -insulin gtt per endotool - transition to subQ regimen after stable CBG at <180 for at leas t 3 checks. -D51/2NS + 20 KCL @ 250ml/hr for IV fluids + potassium repletion -bmp q 6 hrs - can space these out once labs are more stable -switch to glargine + lispro once at least 12 hrs of steady-state cbg data available -diabetic RN education ordered plan to see patient after transitioned to SQ regimen - PCP HgbA1c 06/2015 of 12.5% so poorly controlled as outpatient Acute on chronic epigastric pain - suspect due to gastroparesis, has multiple months of abd ominal pain without clear etiology. Previous evaluation/empiric treatment for H. Pylori, ulc ers, GERD without improvement in sxs. Counseled on importance of avoiding opioids but agreed to small doses of IV dilaudid tonight for acute on chronic pain. - gastric emptying study for 12 AM as patient with poor follow up as outpatient previousl y -dilaudid 0.5mg -1mg IV q 4 PRN -reglan 10mg q 6 (IV or PO) PRN nausea -ondansetron IV or PO PRN nausea -APAP 500mg PO Q6H PRN Fissure in skin of foot - without evidence of acute infection. Eucerin cream prn. Lactic acid acidosis - suspect type A due to dehydration and quickly resolved on repeat anup ck. Abdominal exam unsuggestive of acute abdomen/ischemic gut. High serum osmolar gap - unclear etiology. No reported ingestions, alcohol panel negative Metabolic acidosis with respiratory acidosis - RR seems to be improving so perhaps retainin g less CO2. No acute indication for repeat ABG. Can consider if change in clinical picture t o further clarify respiratory acidosis. Dilutional hyponatremia - due to DKA. Resolved. Diet: carbohydrate managed diet Ppx: enoxaparin SQ, SCDs while in bed Dispo: will likely need to stay in the hospital through at least today to get BGs under con trol transition from IV gtt to SQ and Then plan to gastric emptying study 08/27. Plan to dis charge to home Code status: full code EUNICE PARADA MD Pager - [phone] Rigger Helperhorticulture superintendent Clinical and Medicine Teaching Hospitalist Services [facility] [place] I spent 40 minutes [id number] with the patient as well as with nursing, diabetes educato r of which greater than 50% was spent counseling the patient regarding ongoing treatment of DKA, treatment and evaluation of abdominal pain including previous outpatient evaluation, ne ed to limit narcotics as able, care coordination including discussion with patient's outpt P CP team. documented in this encounter Plan of Treatment +--------+---------+ + + + | Date | Type | Specialty | Care Team | Description | +--------+---------+ + + + | 01/24/ | Office | Surgery | Neri Steven MD | | | 2020 | Visit | | [address] | | | | | | [address] [place], | | | | | | [place] [id number] | | | | | | [phone] | | | | | | | | +--------+---------+ + + + + +------+--------+ + + | Name | Type | Priori | Associated Diagnoses | Order Schedule | | | | ty | | | + +------+--------+ + + | 12 LEAD ECG | ECG | Routin | | One Time for 1 | | | | e | | Occurrences starting | | | | | | 08/27/2015 until | | | | | | 08/27/2015 | + +------+--------+ + + documented as of this encounter Procedures + +--------+ + + + | Procedure Name | Priori | Date/Time | Associated Diagnosis | Comments | | | ty | | | | + +--------+ + + + | NM GASTRIC EMPTYING | Routin | 08/27/2015 | | Results for this | | STUDY | e | 2:13 PM | | procedure are in the | | | | PST | | results section. | + +--------+ + + + | CAPILLARY BLOOD | Routin | 08/27/2015 | Diabetic | Results for this | | GLUCOSE (NO CHG), | e | 1:54 PM | ketoacidosis without | procedure are in the | | POC | | PST | coma associated | results section. | | | | | with type 1 diabetes | | | | | | mellitus (HCC) | | + +--------+ + + + | CAPILLARY BLOOD | Routin | 08/27/2015 | Diabetic | Results for this | | GLUCOSE (NO CHG), | e | 11:17 AM | ketoacidosis without | procedure are in the | | POC | | PST | coma associated | results section. | | | | | with type 1 diabetes | | | | | | mellitus (HCC) | | + +--------+ + + + | CAPILLARY BLOOD | Routin | 08/27/2015 | Diabetic | Results for this | | GLUCOSE (NO CHG), | e | 9:14 AM | ketoacidosis without | procedure are in the | | POC | | PST | coma associated | results section. | | | | | with type 1 diabetes | | | | | | mellitus (HCC) | | + +--------+ + + + | BASIC METABOLIC SET | Routin | 08/27/2015 | | Results for this | | (NA, K, CL, TCO2, | e | 8:16 AM | | procedure are in the | | BUN, CR, GLU, CA) | | PST | | results section. | + +--------+ + + + | CAPILLARY BLOOD | Routin | 08/27/2015 | Diabetic | Results for this | | GLUCOSE (NO CHG), | e | 8:09 AM | ketoacidosis without | procedure are in the | | POC | | PST | coma associated | results section. | | | | | with type 1 diabetes | | | | | | mellitus (HCC) | | + +--------+ + + + | CAPILLARY BLOOD | Routin | 08/27/2015 | Diabetic | Results for this | | GLUCOSE (NO CHG), | e | 7:24 AM | ketoacidosis without | procedure are in the | | POC | | PST | coma associated | results section. | | | | | with type 1 diabetes | | | | | | mellitus (HCC) | | + +--------+ + + + | CAPILLARY BLOOD | Routin | 08/27/2015 | Diabetic | Results for this | | GLUCOSE (NO CHG), | e | 7:03 AM | ketoacidosis without | procedure are in the | | POC | | PST | coma associated | results section. | | | | | with type 1 diabetes | | | | | | mellitus (HCC) | | + +--------+ + + + | CAPILLARY BLOOD | Routin | 08/27/2015 | Diabetic | Results for this | | GLUCOSE (NO CHG), | e | 6:48 AM | ketoacidosis without | procedure are in the | | POC | | PST | coma associated | results section. | | | | | with type 1 diabetes | | | | | | mellitus (HCC) | | + +--------+ + + + | CAPILLARY BLOOD | Routin | 08/27/2015 | Diabetic | Results for this | | GLUCOSE (NO CHG), | e | 3:46 AM | ketoacidosis without | procedure are in the | | POC | | PST | coma associated | results section. | | | | | with type 1 diabetes | | | | | | mellitus (HCC) | | + +--------+ + + + | CAPILLARY BLOOD | Routin | 08/27/2015 | Diabetic | Results for this | | GLUCOSE (NO CHG), | e | 12:20 AM | ketoacidosis without | procedure are in the | | POC | | PST | coma associated | results section. | | | | | with type 1 diabetes | | | | | | mellitus (HCC) | | + +--------+ + + + | CAPILLARY BLOOD | Routin | 08/26/2015 | Diabetic | Results for this | | GLUCOSE (NO CHG), | e | 8:16 PM | ketoacidosis without | procedure are in the | | POC | | PST | coma associated | results section. | | | | | with type 1 diabetes | | | | | | mellitus (HCC) | | + +--------+ + + + | CAPILLARY BLOOD | Routin | 08/26/2015 | Diabetic | Results for this | | GLUCOSE (NO CHG), | e | 5:37 PM | ketoacidosis without | procedure are in the | | POC | | PST | coma associated | results section. | | | | | with type 1 diabetes | | | | | | mellitus (HCC) | | + +--------+ + + + | CAPILLARY BLOOD | Routin | 08/26/2015 | Diabetic | Results for this | | GLUCOSE (NO CHG), | e | 4:31 PM | ketoacidosis without | procedure are in the | | POC | | PST | coma associated | results section. | | | | | with type 1 diabetes | | | | | | mellitus (HCC) | | + +--------+ + + + | CAPILLARY BLOOD | Routin | 08/26/2015 | Diabetic | Results for this | | GLUCOSE (NO CHG), | e | 3:31 PM | ketoacidosis without | procedure are in the | | POC | | PST | coma associated | results section. | | | | | with type 1 diabetes | | | | | | mellitus (HCC) | | + +--------+ + + + | CAPILLARY BLOOD | Routin | 08/26/2015 | Diabetic | Results for this | | GLUCOSE (NO CHG), | e | 2:31 PM | ketoacidosis without | procedure are in the | | POC | | PST | coma associated | results section. | | | | | with type 1 diabetes | | | | | | mellitus (HCC) | | + +--------+ + + + | BASIC METABOLIC SET | Routin | 08/26/2015 | | Results for this | | (NA, K, CL, TCO2, | e | 2:01 PM | | procedure are in the | | BUN, CR, GLU, CA) | | PST | | results section. | + +--------+ + + + | CAPILLARY BLOOD | Routin | 08/26/2015 | Diabetic | Results for this | | GLUCOSE (NO CHG), | e | 1:30 PM | ketoacidosis without | procedure are in the | | POC | | PST | coma associated | results section. | | | | | with type 1 diabetes | | | | | | mellitus (HCC) | | + +--------+ + + + | CAPILLARY BLOOD | Routin | 08/26/2015 | Diabetic | Results for this | | GLUCOSE (NO CHG), | e | 12:28 PM | ketoacidosis without | procedure are in the | | POC | | PST | coma associated | results section. | | | | | with type 1 diabetes | | | | | | mellitus (HCC) | | + +--------+ + + + | CAPILLARY BLOOD | Routin | 08/26/2015 | Diabetic | Results for this | | GLUCOSE (NO CHG), | e | 11:30 AM | ketoacidosis without | procedure are in the | | POC | | PST | coma associated | results section. | | | | | with type 1 diabetes | | | | | | mellitus (HCC) | | + +--------+ + + + | CAPILLARY BLOOD | Routin | 08/26/2015 | Diabetic | Results for this | | GLUCOSE (NO CHG), | e | 10:33 AM | ketoacidosis without | procedure are in the | | POC | | PST | coma associated | results section. | | | | | with type 1 diabetes | | | | | | mellitus (HCC) | | + +--------+ + + + | CAPILLARY BLOOD | Routin | 08/26/2015 | Diabetic | Results for this | | GLUCOSE (NO CHG), | e | 9:32 AM | ketoacidosis without | procedure are in the | | POC | | PST | coma associated | results section. | | | | | with type 1 diabetes | | | | | | mellitus (HCC) | | + +--------+ + + + | CAPILLARY BLOOD | Routin | 08/26/2015 | Diabetic | Results for this | | GLUCOSE (NO CHG), | e | 8:38 AM | ketoacidosis without | procedure are in the | | POC | | PST | coma associated | results section. | | | | | with type 1 diabetes | | | | | | mellitus (HCC) | | + +--------+ + + + | CAPILLARY BLOOD | Routin | 08/26/2015 | Diabetic | Results for this | | GLUCOSE (NO CHG), | e | 7:30 AM | ketoacidosis without | procedure are in the | | POC | | PST | coma associated | results section. | | | | | with type 1 diabetes | | | | | | mellitus (HCC) | | + +--------+ + + + | CAPILLARY BLOOD | Routin | 08/26/2015 | Diabetic | Results for this | | GLUCOSE (NO CHG), | e | 6:53 AM | ketoacidosis without | procedure are in the | | POC | | PST | coma associated | results section. | | | | | with type 1 diabetes | | | | | | mellitus (HCC) | | + +--------+ + + + | BASIC METABOLIC SET | Routin | 08/26/2015 | | Results for this | | (NA, K, CL, TCO2, | e | 6:35 AM | | procedure are in the | | BUN, CR, GLU, CA) | | PST | | results section. | + +--------+ + + + | LACTATE | Routin | 08/26/2015 | | Results for this | | | e | 6:35 AM | | procedure are in the | | | | PST | | results section. | + +--------+ + + + | CAPILLARY BLOOD | Routin | 08/26/2015 | Diabetic | Results for this | | GLUCOSE (NO CHG), | e | 6:14 AM | ketoacidosis without | procedure are in the | | POC | | PST | coma associated | results section. | | | | | with type 1 diabetes | | | | | | mellitus (HCC) | | + +--------+ + + + | CAPILLARY BLOOD | Routin | 08/26/2015 | Diabetic | Results for this | | GLUCOSE (NO CHG), | e | 5:43 AM | ketoacidosis without | procedure are in the | | POC | | PST | coma associated | results section. | | | | | with type 1 diabetes | | | | | | mellitus (HCC) | | + +--------+ + + + | CAPILLARY BLOOD | Routin | 08/26/2015 | Diabetic | Results for this | | GLUCOSE (NO CHG), | e | 5:13 AM | ketoacidosis without | procedure are in the | | POC | | PST | coma associated | results section. | | | | | with type 1 diabetes | | | | | | mellitus (HCC) | | + +--------+ + + + | CAPILLARY BLOOD | Routin | 08/26/2015 | Diabetic | Results for this | | GLUCOSE (NO CHG), | e | 4:12 AM | ketoacidosis without | procedure are in the | | POC | | PST | coma associated | results section. | | | | | with type 1 diabetes | | | | | | mellitus (HCC) | | + +--------+ + + + | ALCOHOL | Routin | 08/26/2015 | | Results for this | | DIFFERENTIAL, BLOOD | e | 3:55 AM | | procedure are in the | | | | PST | | results section. | + +--------+ + + + | CAPILLARY BLOOD | Routin | 08/26/2015 | Diabetic | Results for this | | GLUCOSE (NO CHG), | e | 3:09 AM | ketoacidosis without | procedure are in the | | POC | | PST | coma associated | results section. | | | | | with type 1 diabetes | | | | | | mellitus (HCC) | | + +--------+ + + + | BASIC METABOLIC SET | Routin | 08/26/2015 | | Results for this | | (NA, K, CL, TCO2, | e | 2:37 AM | | procedure are in the | | BUN, CR, GLU, CA) | | PST | | results section. | + +--------+ + + + | LACTATE | Routin | 08/26/2015 | | Results for this | | | e | 2:37 AM | | procedure are in the | | | | PST | | results section. | + +--------+ + + + | LIPID SET (TRIG, T | Routin | 08/26/2015 | | Results for this | | CHOL, HDL, CALC LDL) | e | 2:37 AM | | procedure are in the | | | | PST | | results section. | + +--------+ + + + | CAPILLARY BLOOD | Routin | 08/26/2015 | Diabetic | Results for this | | GLUCOSE (NO CHG), | e | 2:30 AM | ketoacidosis without | procedure are in the | | POC | | PST | coma associated | results section. | | | | | with type 1 diabetes | | | | | | mellitus (HCC) | | + +--------+ + + + | CAPILLARY BLOOD | Routin | 08/26/2015 | Diabetic | Results for this | | GLUCOSE (NO CHG), | e | 2:00 AM | ketoacidosis without | procedure are in the | | POC | | PST | coma associated | results section. | | | | | with type 1 diabetes | | | | | | mellitus (HCC) | | + +--------+ + + + | CAPILLARY BLOOD | Routin | 08/26/2015 | Diabetic | Results for this | | GLUCOSE (NO CHG), | e | 1:29 AM | ketoacidosis without | procedure are in the | | POC | | PST | coma associated | results section. | | | | | with type 1 diabetes | | | | | | mellitus (HCC) | | + +--------+ + + + | CAPILLARY BLOOD | Routin | 08/26/2015 | Diabetic | Results for this | | GLUCOSE (NO CHG), | e | 12:49 AM | ketoacidosis without | procedure are in the | | POC | | PST | coma associated | results section. | | | | | with type 1 diabetes | | | | | | mellitus (HCC) | | + +--------+ + + + | CAPILLARY BLOOD | Routin | 08/25/2015 | Diabetic | Results for this | | GLUCOSE (NO CHG), | e | 11:51 PM | ketoacidosis without | procedure are in the | | POC | | PST | coma associated | results section. | | | | | with type 1 diabetes | | | | | | mellitus (HCC) | | + +--------+ + + + | UA, DIPSTICK ONLY | Urgent | 08/25/2015 | | Results for this | | | | 10:37 PM | | procedure are in the | | | | PST | | results section. | + +--------+ + + + | URINE, MICROSCOPIC | Urgent | 08/25/2015 | | Results for this | | EXAM | | 10:37 PM | | procedure are in the | | | | PST | | results section. | + +--------+ + + + | URINE SCREEN FOR | Urgent | 08/25/2015 | | Results for this | | CULTURE | | 10:37 PM | | procedure are in the | | | | PST | | results section. | + +--------+ + + + | CHEM 8 W/H&HPOC | Urgent | 08/25/2015 | | Results for this | | | | 9:41 PM | | procedure are in the | | | | PST | | results section. | + +--------+ + + + | BG-PRUDENCEPOC ISTAT | Urgent | 08/25/2015 | | Results for this | | | | 9:37 PM | | procedure are in the | | | | PST | | results section. | + +--------+ + + + | 12 LEAD ECG | Routin | 08/25/2015 | | Results for this | | | e | 9:36 PM | | procedure are in the | | | | PST | | results section. | + +--------+ + + + | RAINBOW HOLD TUBE - | Urgent | 08/25/2015 | | | | RED TOP | | 9:33 PM | | | | | | PST | | | + +--------+ + + + | RAINBOW HOLD TUBE - | Urgent | 08/25/2015 | | | | BLUE TOP | | 9:33 PM | | | | | | PST | | | + +--------+ + + + | CBC AND AUTO DIFF | Urgent | 08/25/2015 | | Results for this | | | | 9:33 PM | | procedure are in the | | | | PST | | results section. | + +--------+ + + + | RAINBOW HOLD, CORE | Urgent | 08/25/2015 | | Results for this | | PANEL | | 9:33 PM | | procedure are in the | | | | PST | | results section. | + +--------+ + + + | CBC, WITH | Urgent | 08/25/2015 | | Results for this | | DIFFERENTIAL | | 9:33 PM | | procedure are in the | | | | PST | | results section. | + +--------+ + + + | COMPLETE METABOLIC | Urgent | 08/25/2015 | | Results for this | | SET | | 9:33 PM | | procedure are in the | | (NA,K,CL,CO2,BUN,CRE | | PST | | results section. | | AT,GLUC,CA,AST,ALT,B | | | | | | ANNIE TOTAL,ALK | | | | | | PHOS,ALB,PROT TOTAL) | | | | | + +--------+ + + + | BLOOD BANK HOLD TUBE | Urgent | 08/25/2015 | | Results for this | | - DON | | 9:33 PM | | procedure are in the | | | | PST | | results section. | | T PROCESS | | | | | + +--------+ + + + | KETONE, PLASMA | Routin | 08/25/2015 | | Results for this | | | e | 9:33 PM | | procedure are in the | | | | PST | | results section. | + +--------+ + + + | OSMOLALITY, PLASMA | Routin | 08/25/2015 | | Results for this | | | e | 9:33 PM | | procedure are in the | | | | PST | | results section. | + +--------+ + + + | LIPASE, PLASMA | Urgent | 08/25/2015 | | Results for this | | | | 9:33 PM | | procedure are in the | | | | PST | | results section. | + +--------+ + + + | CAPILLARY BLOOD | Routin | 08/25/2015 | | Results for this | | GLUCOSE (NO CHG), | e | 9:32 PM | | procedure are in the | | POC | | PST | | results section. | + +--------+ + + + | ED INFORMATION | Routin | 08/25/2015 | | Results for this | | EXCHANGE | e | 9:25 PM | | procedure are in the | | | | PST | | results section. | + +--------+ + + + documented in this encounter Results NM GASTRIC EMPTYING STUDY (08/27/2015 2:13 PM PST) + + + + + + | Component | Value | Ref Range | Performed | Pathologist | | | | | At | Signature | + + + + + + | NM GASTRIC | EXAM: Gastric emptying | | | | | EMPTYING | study on 08/27/15 | | | | | | 14:13:00 HISTORY: | | | | | | Epigastric abdominal | | | | | | pain. Long-standing | | | | | | poorly controlled type | | | | | | Idiabetes. Concern for | | | | | | gastroparesis. | | | | | | COMPARISON: None | | | | | | TECHNIQUE: A standard | | | | | | meal of eggs and toast | | | | | | containing 0.5 | | | | | | millicuriestechnetium | | | | | | 99m sulfur colloid was | | | | | | administered. The | | | | | | patient ingested the | | | | | | mealwithout difficulty. | | | | | | Anterior and posterior | | | | | | images were obtained | | | | | | for one minuteat | | | | | | baseline, one hour, two | | | | | | hours and four hours. | | | | | | The amount of | | | | | | radioactivity inthe | | | | | | region of the stomach | | | | | | was plotted on a graph | | | | | | and the percentage of | | | | | | gastricretention at 1, 2 | | | | | | and 4 h after meal | | | | | | ingestion was determined | | | | | | using a geometricmean. | | | | | | FINDINGS: Exam is | | | | | | partially limited as | | | | | | patient had been | | | | | | administered reglan, | | | | | | prilosec anddilaudid. | | | | | | These are known to | | | | | | affect gastric emptying. | | | | | | The percentage of | | | | | | tracer retained at 1, 2, | | | | | | and 4 hours after meal | | | | | | ingestion is92, 99, and | | | | | | 91%, respectively. The | | | | | | upper limits of normal | | | | | | gastric retentionare | | | | | | 90%, 60%, and 10% at 1, | | | | | | 2, and 4 hours | | | | | | respectively (Ref: | | | | | | Tougaclaudio G, et all. Am J | | | | | | Gastroent 1999, | | | | | | [id number]) IMPRESSION: | | | | | | Patient had been | | | | | | administered reglan, | | | | | | prilosec and dilaudid | | | | | | prior to exam,which are | | | | | | known to affect gastric | | | | | | emptying. Despite this, | | | | | | the gastric emptyingis | | | | | | markedly delayed, | | | | | | consistent with severe | | | | | | gastroparesis. Attending | | | | | | Radiologists: IJEOMA | | | | | | PALMA ORTIZuthor: | | | | | | RANJITH WHITAKER MD I | | | | | | personally reviewed the | | | | | | images and, if | | | | | | necessary, edited the | | | | | | report. I agreewith the | | | | | | report as now presented. | | | | | | | | | | | | Final/Electronically | | | | | | signed / IJEOMA ORTIZ | | | | | | 08/27/2015 17:07 PM | | | | | | Pending final approval | | | | | | / RANJITH WHITAKER | | | | | | 08/27/2015 16:01 PM | | | | | | Preliminary / | | | | | | RANJITH WHITAKER | | | | | | 08/27/2015 14:56 PM | | | | + + + + + + + + | Specimen | + + | | + + + +---------+ + + | Performing | Address | City/State/Zipcode | Phone Number | | Organization | | | | + +---------+ + + | [facility] | | | | | RADIOLOGY | | | | + +---------+ + + CAPILLARY BLOOD GLUCOSE (NO CHG), POC (08/27/2015 1:54 PM PST) + +---------+ + + + | Component | Value | Ref Range | Performed | Pathologist | | | | | At | Signature | + +---------+ + + + | BLOOD | 191 (H) | 60 - 99 mg/dL | [facility] | | | GLUCOSE, | | | [place] | | | POC | | | [facility] | | | | | | OF CARE | | | | | | TESTS | | + +---------+ + + + + + | Specimen | + + | | + + + + + + + | Performing | Address | City/State/Zipcode | Phone Number | | Organization | | | | + + + + + | [facility] | [address] | [place], [place] | | | [facility] | [facility] | [address] | | | TESTS | | | | + + + + + CAPILLARY BLOOD GLUCOSE (NO CHG), POC (08/27/2015 11:17 AM PST) + +---------+ + + + | Component | Value | Ref Range | Performed | Pathologist | | | | | At | Signature | + +---------+ + + + | BLOOD | 197 (H) | 60 - 99 mg/dL | [facility] | | | GLUCOSE, | | | [facility] | | | POC | | | [facility] | | | | | | OF CARE | | | | | | TESTS | | + +---------+ + + + + + | Specimen | + + | | + + + + + + + | Performing | Address | City/State/Zipcode | Phone Number | | Organization | | | | + + + + + | [facility] | [address] | [place], [place] | | | [facility] | [address] | [address] | | | TESTS | | | | + + + + + CAPILLARY BLOOD GLUCOSE (NO CHG), POC (08/27/2015 9:14 AM PST) + +---------+ + + + | Component | Value | Ref Range | Performed | Pathologist | | | | | At | Signature | + +---------+ + + + | BLOOD | 110 (H) | 60 - 99 mg/dL | [facility] | | | GLUCOSE, | | | [place] | | | POC | | | [facility] | | | | | | OF CARE | | | | | | TESTS | | + +---------+ + + + + + | Specimen | + + | | + + + + + + + | Performing | Address | City/State/Zipcode | Phone Number | | Organization | | | | + + + + + | [facility] | [address] | [place], [place] | | | [facility] | [address] | [address] | | | TESTS | | | | + + + + + BASIC METABOLIC SET (NA, K, CL, TCO2, BUN, CR, GLU, CA) (08/27/2015 8:16 AM PST) + + + + + + | Component | Value | Ref Range | Performed | Pathologist | | | | | At | Signature | + + + + + + | GLUCOSE, | 96 | 60 - 99 mg/dL | [facility] | | | PLASMA | | | LABORATORY | | | (LAB) | | | SERVICES, | | | | | | CORE | | + + + + + + | BUN, PLASMA | 10 | 6 - 20 mg/dL | [facility] | | | (LAB) | | | LABORATORY | | | | | | SERVICES, | | | | | | CORE | | + + + + + + | CREATININE | 0.67 (L) | 0.70 - 1.30 | [facility] | | | PLASMA | | mg/dL | LABORATORY | | | (LAB) | | | SERVICES, | | | | | | CORE | | + + + + + + | EGFR | >60 | >60 mL/min | [facility] | | | - | | | LABORATORY | | | [facility] | | | SERVICES, | | | | | | CORE | | + + + + + + | EGFR NON | >60 | >60 mL/min | [facility] | | [...] + + + + | POTASSIUM, | 3.7 | 3.4 - 5.0 | [facility] | | | PLASMA | | mmol/L | LABORATORY | | | (LAB) | | | SERVICES, | | | | | | CORE | | + + + + + + | CHLORIDE, | 107 | 97 - 108 mmol/L | [facility] | | | PLASMA | | | LABORATORY | | | (LAB) | | | SERVICES, | | | | | | CORE | | + + + + + + | TOTAL CO2, | 31 | 21 - 32 mmol/L | [facility] | | | PLASMA | | | LABORATORY | | | (LAB) | | | SERVICES, | | | | | | CORE | | + + + + + + | CALCIUM, | 8.0 (L) | 8.6 - 10.2 | [facility] | | | PLASMA | | mg/dL | LABORATORY | | | (LAB) | | | SERVICES, | | | | | | CORE | | + + + + + + | ANION GAP | 4 | mmol/L | [facility] | | | | [...] using the MDRD equation recommended by the | [facility] | | National Kidney Disease Education Program. Estimated GFR | LABORATORY | | Interpretive Information: <60 mL/min/1.73 sq m | SERVICES, CORE | | Chronic Kidney Disease <15 mL/min/1.73 sq m | | | Kidney Failure Estimated GFR greater that 60 mL/min/1.73 sq m is of | | | limited clinical value. The MDRD equation is not valid in the | | | following situations: - Patients under 18 years of age - Severe | | | malnutrition or obesity - Vegetarian diet - Rapidly changing kidney | | | function | | + + + + + + + + | Performing | Address | City/State/Zipcode | Phone Number | | Organization | | | | + + + + + | [facility] | [address] | [place] [address] | | | SERVICES, CORE | [address] | | | + + + + + CAPILLARY BLOOD GLUCOSE (NO CHG), POC (08/27/2015 8:09 AM PST) + +-------+ + + + | Component | Value | Ref Range | Performed | Pathologist | | | | | At | Signature | + +-------+ + + + | BLOOD | 97 | 60 - 99 mg/dL | [facility] - | | | GLUCOSE, | | | [place] | | | POC | | | [facility] | | | | | | OF CARE | | | | | | TESTS | | + +-------+ + + + + + | Specimen | + + | | + + + + + + + | Performing | Address | City/State/Zipcode | Phone Number | | Organization | | | | + + + + + | [facility] | [address] | [place], [place] | | | TANJA HAY OF [facility] | [facility] | [address] | | | TESTS | | | | + + + + + CAPILLARY BLOOD GLUCOSE (NO CHG), POC (08/27/2015 7:24 AM PST) + +-------+ + + + | Component | Value | Ref Range | Performed | Pathologist | | | | | At | Signature | + +-------+ + + + | BLOOD | 73 | 60 - 99 mg/dL | [facility] - | | | GLUCOSE, | | | [place] | | | POC | | | [facility] | | | | | | OF CARE | | | | | | TESTS | | + +-------+ + + + + + | Specimen | + + | | + + + + + + + | Performing | Address | City/State/Zipcode | Phone Number | | Organization | | | | + + + + + | [facility] | [address] | [place], [place] | | | [facility] | [address] | [address] | | | TESTS | | | | + + + + + CAPILLARY BLOOD GLUCOSE (NO CHG), POC (08/27/2015 7:03 AM PST) + +--------+ + + + | Component | Value | Ref Range | Performed | Pathologist | | | | | At | Signature | + +--------+ + + + | BLOOD | 59 (L) | 60 - 99 mg/dL | [facility] - | | | GLUCOSE, | | | [place] | | | POC | | | [facility] | | | | | | OF CARE | | | | | | TESTS | | + +--------+ + + + + + | Specimen | + + | | + + + + + + + | Performing | Address | City/State/Zipcode | Phone Number | | Organization | | | | + + + + + | [facility] | [address] | [place], [place] | | | TANJA HAY OF ANNA | [facility] | [address] | | | TESTS | | | | + + + + + CAPILLARY BLOOD GLUCOSE (NO CHG), POC (08/27/2015 6:48 AM PST) + +--------+ + + + | Component | Value | Ref Range | Performed | Pathologist | | | | | At | Signature | + +--------+ + + + | BLOOD | 54 (L) | 60 - 99 mg/dL | [facility] - | | | GLUCOSE, | | | [place] | | | POC | | | [facility] | | | | | | OF CARE | | | | | | TESTS | | + +--------+ + + + + + | Specimen | + + | | + + + + + + + | Performing | Address | City/State/Zipcode | Phone Number | | Organization | | | | + + + + + | [facility] | [address] | [place], [place] | | | [facility]JA [facility]AY [facility] | [facility] | [address] | | | TESTS | | | | + + + + + CAPILLARY BLOOD GLUCOSE (NO CHG), POC (08/27/2015 3:46 AM PST) + +---------+ + + + | Component | Value | Ref Range | Performed | Pathologist | | | | | At | Signature | + +---------+ + + + | BLOOD | 101 (H) | 60 - 99 mg/dL | [facility] - | | | GLUCOSE, | | | [place] | | | POC | | | [facility] | | | | | | OF CARE | | | | | | TESTS | | + +---------+ + + + + + | Specimen | + + | | + + + + + + + | Performing | Address | City/State/Zipcode | Phone Number | | Organization | | | | + + + + + | [facility] | [address] | [place], [place] | | | TANJA HAY OF [facility] | [address] | [address] | | | TESTS | | | | + + + + + CAPILLARY BLOOD GLUCOSE (NO CHG), POC (08/27/2015 12:20 AM PST) + +---------+ + + + | Component | Value | Ref Range | Performed | Pathologist | | | | | At | Signature | + +---------+ + + + | BLOOD | 131 (H) | 60 - 99 mg/dL | [facility] - | | | GLUCOSE, | | | [place] | | | POC | | | [facility] | | | | | | OF CARE | | | | | | TESTS | | + +---------+ + + + + + | Specimen | + + | | + + + + + + + | Performing | Address | City/State/Zipcode | Phone Number | | Organization | | | | + + + + + | [facility] | [address] | [place], [place] | | | T[facility]AY OF CARE | [facility] | [address] | | | TESTS | | | | + + + + + CAPILLARY BLOOD GLUCOSE (NO CHG), POC (08/26/2015 8:16 PM PST) + +---------+ + + + | Component | Value | Ref Range | Performed | Pathologist | | | | | At | Signature | + +---------+ + + + | BLOOD | 153 (H) | 60 - 99 mg/dL | [facility] - | | | GLUCOSE, | | | [place] | | | POC | | | [facility] | | | | | | OF CARE | | | | | | TESTS | | + +---------+ + + + + + | Specimen | + + | | + + + + + + + | Performing | Address | City/State/Zipcode | Phone Number | | Organization | | | | + + + + + | [facility] | [address] | [place], [place] | | | T[facility]JA [facility]AY [facility] | [facility] | [address] | | | TESTS | | | | + + + + + CAPILLARY BLOOD GLUCOSE (NO CHG), POC (08/26/2015 5:37 PM PST) + +---------+ + + + | Component | Value | Ref Range | Performed | Pathologist | | | | | At | Signature | + +---------+ + + + | BLOOD | 208 (H) | 60 - 99 mg/dL | [facility] - | | | GLUCOSE, | | | [place] | | | POC | | | T[facility] | | | | | | OF CARE | | | | | | TESTS | | + +---------+ + + + + + | Specimen | + + | | + + + + + + + | Performing | Address | City/State/Zipcode | Phone Number | | Organization | | | | + + + + + | [facility] | [address] | [place], [place] | | | TANJA HAY OF [facility] | [address] | [address] | | | TESTS | | | | + + + + + CAPILLARY BLOOD GLUCOSE (NO CHG), POC (08/26/2015 4:31 PM PST) + +---------+ + + + | Component | Value | Ref Range | Performed | Pathologist | | | | | At | Signature | + +---------+ + + + | BLOOD | 174 (H) | 60 - 99 mg/dL | [facility] - | | | GLUCOSE, | | | [place] | | | POC | | | T[facility]AY | | | | | | OF CARE | | | | | | TESTS | | + +---------+ + + + + + | Specimen | + + | | + + + + + + + | Performing | Address | City/State/Zipcode | Phone Number | | Organization | | | | + + + + + | [facility] | [address] | [place], [place] | | | TANJA HAY OF ANNA | [facility] | [address] | | | TESTS | | | | + + + + + CAPILLARY BLOOD GLUCOSE (NO CHG), POC (08/26/2015 3:31 PM PST) + +---------+ + + + | Component | Value | Ref Range | Performed | Pathologist | | | | | At | Signature | + +---------+ + + + | BLOOD | 189 (H) | 60 - 99 mg/dL | [facility] - | | | GLUCOSE, | | | [place] | | | POC | | | [facility] | | | | | | OF CARE | | | | | | TESTS | | + +---------+ + + + + + | Specimen | + + | | + + + + + + + | Performing | Address | City/State/Zipcode | Phone Number | | Organization | | | | + + + + + | [facility] | [address] | [place], [place] | | | [facility]AY OF CARE | [facility] | [address] | | | TESTS | | | | + + + + + CAPILLARY BLOOD GLUCOSE (NO CHG), POC (08/26/2015 2:31 PM PST) + +---------+ + + + | Component | Value | Ref Range | Performed | Pathologist | | | | | At | Signature | + +---------+ + + + | BLOOD | 185 (H) | 60 - 99 mg/dL | [facility] - | | | GLUCOSE, | | | [place] | | | POC | | | T[facility]JA [facility]AY | | | | | | OF CARE | | | | | | TESTS | | + +---------+ + + + + + | Specimen | + + | | + + + + + + + | Performing | Address | City/State/Zipcode | Phone Number | | Organization | | | | + + + + + | [facility] | [address] | [place], [place] | | | TANJA HAY OF [facility] | [address] | [address] | | | TESTS | | | | + + + + + BASIC METABOLIC SET (NA, K, CL, TCO2, BUN, CR, GLU, CA) (08/26/2015 2:01 PM PST) + + + + + + | Component | Value | Ref Range | Performed | Pathologist | | | | | At | Signature | + + + + + + | GLUCOSE, | 176 (H) | 60 - 99 mg/dL | [facility] | | | PLASMA | | | LABORATORY | | | (LAB) | | | SERVICES, | | | | | | CORE | | + + + + + + | BUN, PLASMA | 11 | 6 - 20 mg/dL | [facility] | | | (LAB) | | | LABORATORY | | | | | | SERVICES, | | | | | | CORE | | + + + + + + | CREATININE | 0.66 (L) | 0.70 - 1.30 | [facility] | | | PLASMA | | mg/dL | LABORATORY | | | (LAB) | | | SERVICES, | | | | | | CORE | | + + + + + + | EGFR | >60 | >60 mL/min | [facility] | | | - | | | LABORATORY | | | BERMUDIAN | | | SERVICES, | | | | | | CORE | | + + + + + + | EGFR NON | >60 | >60 mL/min | [facility] | | | -[facility]OTT | | | LABORATORY | | | RICAN | | | SERVICES, | | | | | | CORE | | + + + + + + | SODIUM, | 140 | 136 - 145 | [facility] | | | PLASMA | | mmol/L | LABORATORY | | | (LAB) | | | SERVICES, | | | | | | CORE | | + + + + + + | POTASSIUM, | 4.1 | 3.4 - 5.0 | [facility] | | | PLASMA | | mmol/L | LABORATORY | | | (LAB) | | | SERVICES, | | | | | | CORE | | + + + + + + | CHLORIDE, | 106 | 97 - 108 mmol/L | [facility] | | | PLASMA | | | LABORATORY | | | (LAB) | | | SERVICES, | | | | | | CORE | | + + + + + + | TOTAL CO2, | 28 | 21 - 32 mmol/L | [facility] | | | PLASMA | | | LABORATORY | | | (LAB) | | | SERVICES, | | | | | | CORE | | + + + + + + | CALCIUM, | 7.8 (L) | 8.6 - 10.2 | [facility] | | | PLASMA | | mg/dL | LABORATORY | | | (LAB) | | | SERVICES, | | | | | | CORE | | + + + + + + | ANION GAP | 6 | mmol/L | [facility] | | | | [...] using the MDRD equation recommended by the | [facility] | | National Kidney Disease Education Program. Estimated GFR | LABORATORY | | Interpretive Information: <60 mL/min/1.73 sq m | SERVICES, CORE | | Chronic Kidney Disease <15 mL/min/1.73 sq m | | | Kidney Failure Estimated GFR greater that 60 mL/min/1.73 sq m is of | | | limited clinical value. The MDRD equation is not valid in the | | | following situations: - Patients under 18 years of age - Severe | | | malnutrition or obesity - Vegetarian diet - Rapidly changing kidney | | | function | | + + + + + + + + | Performing | Address | City/State/Zipcode | Phone Number | | Organization | | | | + + + + + | [facility] | [address] | [place] [address] | | | SERVICES, CORE | [address] | | | + + + + + CAPILLARY BLOOD GLUCOSE (NO CHG), POC (08/26/2015 1:30 PM PST) + +---------+ + + + | Component | Value | Ref Range | Performed | Pathologist | | | | | At | Signature | + +---------+ + + + | BLOOD | 167 (H) | 60 - 99 mg/dL | [facility] - | | | GLUCOSE, | | | [place] | | | POC | | | [facility] | | | | | | OF CARE | | | | | | TESTS | | + +---------+ + + + + + | Specimen | + + | | + + + + + + + | Performing | Address | City/State/Zipcode | Phone Number | | Organization | | | | + + + + + | [facility] | [address] | [place], [place] | | | TANJA HAY OF [facility] | [address] | [address] | | | TESTS | | | | + + + + + CAPILLARY BLOOD GLUCOSE (NO CHG), POC (08/26/2015 12:28 PM PST) + +---------+ + + + | Component | Value | Ref Range | Performed | Pathologist | | | | | At | Signature | + +---------+ + + + | BLOOD | 215 (H) | 60 - 99 mg/dL | [facility] - | | | GLUCOSE, | | | [place] | | | POC | | | [facility] | | | | | | OF CARE | | | | | | TESTS | | + +---------+ + + + + + | Specimen | + + | | + + + + + + + | Performing | Address | City/State/Zipcode | Phone Number | | Organization | | | | + + + + + | [facility] | [address] | [place], [place] | | | [facility] CARE | [address] | [address] | | | TESTS | | | | + + + + + CAPILLARY BLOOD GLUCOSE (NO CHG), POC (08/26/2015 11:30 AM PST) + +---------+ + + + | Component | Value | Ref Range | Performed | Pathologist | | | | | At | Signature | + +---------+ + + + | BLOOD | 165 (H) | 60 - 99 mg/dL | [facility] - | | | GLUCOSE, | | | [place] | | | POC | | | [facility] | | | | | | OF CARE | | | | | | TESTS | | + +---------+ + + + + + | Specimen | + + | | + + + + + + + | Performing | Address | City/State/Zipcode | Phone Number | | Organization | | | | + + + + + | [facility] | [address] | [place], [place] | | | [facility] | [address] | [address] | | | TESTS | | | | + + + + + CAPILLARY BLOOD GLUCOSE (NO CHG), POC (08/26/2015 10:33 AM PST) + +---------+ + + + | Component | Value | Ref Range | Performed | Pathologist | | | | | At | Signature | + +---------+ + + + | BLOOD | 178 (H) | 60 - 99 mg/dL | [facility] - | | | GLUCOSE, | | | [place] | | | POC | | | [facility] | | | | | | OF CARE | | | | | | TESTS | | + +---------+ + + + + + | Specimen | + + | | + + + + + + + | Performing | Address | City/State/Zipcode | Phone Number | | Organization | | | | + + + + + | [facility] | [address] | [place], [place] | | | [facility] CARE | [address] | [address] | | | TESTS | | | | + + + + + CAPILLARY BLOOD GLUCOSE (NO CHG), POC (08/26/2015 9:32 AM PST) + +---------+ + + + | Component | Value | Ref Range | Performed | Pathologist | | | | | At | Signature | + +---------+ + + + | BLOOD | 201 (H) | 60 - 99 mg/dL | [facility] - | | | GLUCOSE, | | | [place] | | | POC | | | [facility] | | | | | | OF CARE | | | | | | TESTS | | + +---------+ + + + + + | Specimen | + + | | + + + + + + + | Performing | Address | City/State/Zipcode | Phone Number | | Organization | | | | + + + + + | [facility] | [address] | [place], [place] | | | [facility] CARE | [address] | [address] | | | TESTS | | | | + + + + + CAPILLARY BLOOD GLUCOSE (NO CHG), POC (08/26/2015 8:38 AM PST) + +---------+ + + + | Component | Value | Ref Range | Performed | Pathologist | | | | | At | Signature | + +---------+ + + + | BLOOD | 193 (H) | 60 - 99 mg/dL | [facility] - | | | GLUCOSE, | | | [place] | | | POC | | | [facility] | | | | | | OF CARE | | | | | | TESTS | | + +---------+ + + + + + | Specimen | + + | | + + + + + + + | Performing | Address | City/State/Zipcode | Phone Number | | Organization | | | | + + + + + | [facility] | [address] | [place], [place] | | | [facility] | [address] | [address] | | | TESTS | | | | + + + + + CAPILLARY BLOOD GLUCOSE (NO CHG), POC (08/26/2015 7:30 AM PST) + +---------+ + + + | Component | Value | Ref Range | Performed | Pathologist | | | | | At | Signature | + +---------+ + + + | BLOOD | 168 (H) | 60 - 99 mg/dL | [facility] - | | | GLUCOSE, | | | [place] | | | POC | | | [facility] | | | | | | OF CARE | | | | | | TESTS | | + +---------+ + + + + + | Specimen | + + | | + + + + + + + | Performing | Address | City/State/Zipcode | Phone Number | | Organization | | | | + + + + + | [facility] | [address] | [place], [place] | | | [facility] CARE | [address] | [address] | | | TESTS | | | | + + + + + CAPILLARY BLOOD GLUCOSE (NO CHG), POC (08/26/2015 6:53 AM PST) + +---------+ + + + | Component | Value | Ref Range | Performed | Pathologist | | | | | At | Signature | + +---------+ + + + | BLOOD | 118 (H) | 60 - 99 mg/dL | [facility] - | | | GLUCOSE, | | | [place] | | | POC | | | [facility] | | | | | | OF CARE | | | | | | TESTS | | + +---------+ + + + + + | Specimen | + + | | + + + + + + + | Performing | Address | City/State/Zipcode | Phone Number | | Organization | | | | + + + + + | [facility] | [address] | [place], [place] | | | [facility] CARE | [address] | [address] | | | TESTS | | | | + + + + + BASIC METABOLIC SET (NA, K, CL, TCO2, BUN, CR, GLU, CA) (08/26/2015 6:35 AM PST) + + + + + + | Component | Value | Ref Range | Performed | Pathologist | | | | | At | Signature | + + + + + + | GLUCOSE, | 89 | 60 - 99 mg/dL | [facility] | | | PLASMA | | | LABORATORY | | | (LAB) | | | SERVICES, | | | | | | CORE | | + + + + + + | BUN, PLASMA | 12 | 6 - 20 mg/dL | [facility] | | | (LAB) | | | LABORATORY | | | | | | SERVICES, | | | | | | CORE | | + + + + + + | CREATININE | 0.62 (L) | 0.70 - 1.30 | [facility] | | | PLASMA | | mg/dL | LABORATORY | | | (LAB) | | | SERVICES, | | | | | | CORE | | + + + + + + | EGFR | >60 | >60 mL/min | [facility] | | | - | | | LABORATORY | | | B[facility] | | | SERVICES, | | | | | | CORE | | + + + + + + | EGFR NON | >60 | >60 mL/min | [facility] | | [...] + + + + | POTASSIUM, | 4.1 | 3.4 - 5.0 | [facility] | | | PLASMA | | mmol/L | LABORATORY | | | (LAB) | | | SERVICES, | | | | | | CORE | | + + + + + + | CHLORIDE, | 109 (H) | 97 - 108 mmol/L | [facility] | | | PLASMA | | | LABORATORY | | | (LAB) | | | SERVICES, | | | | | | CORE | | + + + + + + | TOTAL CO2, | 29 | 21 - 32 mmol/L | [facility] | | | PLASMA | | | LABORATORY | | | (LAB) | | | SERVICES, | | | | | | CORE | | + + + + + + | CALCIUM, | 7.6 (L) | 8.6 - 10.2 | [facility] | | | PLASMA | | mg/dL | LABORATORY | | | (LAB) | | | SERVICES, | | | | | | CORE | | + + + + + + | ANION GAP | 4 | mmol/L | [facility] | | | | [...] using the MDRD equation recommended by the | [facility] | | National Kidney Disease Education Program. Estimated GFR | LABORATORY | | Interpretive Information: <60 mL/min/1.73 sq m | SERVICES, CORE | | Chronic Kidney Disease <15 mL/min/1.73 sq m | | | Kidney Failure Estimated GFR greater that 60 mL/min/1.73 sq m is of | | | limited clinical value. The MDRD equation is not valid in the | | | following situations: - Patients under 18 years of age - Severe | | | malnutrition or obesity - Vegetarian diet - Rapidly changing kidney | | | function | | + + + + + + + + | Performing | Address | City/State/Zipcode | Phone Number | | Organization | | | | + + + + + | [facility] | [address] | [place] [address] | | | SERVICES, CORE | [address] | | | + + + + + LACTIC ACID (08/26/2015 6:35 AM PST) + +-------+ + + + | Component | Value | Ref Range | Performed | Pathologist | | | | | At | Signature | + +-------+ + + + | LACTATE | 1.0 | mmol/L | [facility] | | | | | | LABORATORY | | | | | | SERVICES, | | | | | | CORE | | + +-------+ + + + + + | Specimen | + + | Blood - Blood | | (substance) | + + + + + | Narrative | Performed At | + + + | Reference Range: Venous blood: 0.5 - 2.2 mmol/L | [facility] | | Arterial blood: 0.5 - 1.6 mmol/L | LABORATORY | | | SERVICES, CORE | + + + + + + + + | Performing | Address | City/State/Zipcode | Phone Number | | Organization | | | | + + + + + | [facility] | [address] | [place] [address] | | | SERVICES, CORE | [address] | | | + + + + + CAPILLARY BLOOD GLUCOSE (NO CHG), POC (08/26/2015 6:14 AM PST) + +-------+ + + + | Component | Value | Ref Range | Performed | Pathologist | | | | | At | Signature | + +-------+ + + + | BLOOD | 80 | 60 - 99 mg/dL | [facility] - | | | GLUCOSE, | | | [facility] | | | POC | | | [facility] | | | | | | OF CARE | | | | | | TESTS | | + +-------+ + + + + + | Specimen | + + | | + + + + + + + | Performing | Address | City/State/Zipcode | Phone Number | | Organization | | | | + + + + + | [facility] | [address] | [place], [place] | | | [facility] | [address] | [address] | | | TESTS | | | | + + + + + CAPILLARY BLOOD GLUCOSE (NO CHG), POC (08/26/2015 5:43 AM PST) + +-------+ + + + | Component | Value | Ref Range | Performed | Pathologist | | | | | At | Signature | + +-------+ + + + | BLOOD | 79 | 60 - 99 mg/dL | [facility] - | | | GLUCOSE, | | | [facility] | | | POC | | | [facility] | | | | | | OF CARE | | | | | | TESTS | | + +-------+ + + + + + | Specimen | + + | | + + + + + + + | Performing | Address | City/State/Zipcode | Phone Number | | Organization | | | | + + + + + | [facility] | [address] | [place], [place] | | | [facility] | [facility] | [address] | | | TESTS | | | | + + + + + CAPILLARY BLOOD GLUCOSE (NO CHG), POC (08/26/2015 5:13 AM PST) + +-------+ + + + | Component | Value | Ref Range | Performed | Pathologist | | | | | At | Signature | + +-------+ + + + | BLOOD | 81 | 60 - 99 mg/dL | [facility] | | | GLUCOSE, | | | [facility] | | | POC | | | [facility] | | | | | | OF CARE | | | | | | TESTS | | + +-------+ + + + + + | Specimen | + + | | + + + + + + + | Performing | Address | City/State/Zipcode | Phone Number | | Organization | | | | + + + + + | [facility] | [address] | [place], [place] | | | [facility] | [facility] | [phone] | | | TESTS | | | | + + + + + CAPILLARY BLOOD GLUCOSE (NO CHG), POC (08/26/2015 4:12 AM PST) + +---------+ + + + | Component | Value | Ref Range | Performed | Pathologist | | | | | At | Signature | + +---------+ + + + | BLOOD | 158 (H) | 60 - 99 mg/dL | [facility] - | | | GLUCOSE, | | | [facility] | | | POC | | | [facility] | | | | | | OF CARE | | | | | | TESTS | | + +---------+ + + + + + | Specimen | + + | | + + + + + + + | Performing | Address | City/State/Zipcode | Phone Number | | Organization | | | | + + + + + | [facility] | [address] | [place], [place] | | | [facility] | [address] | [phone] | | | TESTS | | | | + + + + + ALCOHOL DIFFERENTIAL, BLOOD (08/26/2015 3:55 AM PST) + + + + + + | Component | Value | Ref Range | Performed | Pathologist | | | | | At | Signature | + + + + + + | ETHANOL | Comment: Not Detected | 0-<10 mg/dL | [facility] | | | | | | REFERENCE | | | | | | LAB | | + + + + + + | ACETONE | Comment: Not Detected | 0-<10 mg/dL | [facility] | | | [facility] | | | REFERENCE | | | ON | | | LAB | | + + + + + + | METHANOL | Comment: Not Detected | 0-<10 mg/dL | [facility] | | | [facility] | | | REFERENCE | | | ON | | | LAB | | + + + + + + | ISOPROPANOL | Comment: Not Detected | 0-<10 mg/dL | [facility] | | | | | | REFERENCE | | | | | | LAB | | + + + + + + + + | Specimen | + + | Blood - Blood | + + + + + | Narrative | Performed At | + + + | Ethanol Level | [facility] | | Reference Information:Not Detected: <10 mg/dLExcitement: 10-50 | REFERENCE LAB | | mg/dLFlushing, slowing of reflexes, impaired visual activity: 50-100 | | | mg/dLDepression of MELTER CLERK: >100 mg/dLFatalities reported: >400 mg/dL | | | Acetone, Methanol and Isopropanol:<5 mg/dL: Reported as Not | | | Detected<10 mg/dL but >5 mg/dL: Reported as <10 mg/dL>10 mg/dL: | | | Reported as measured numeric value Test performed by: [facility] | | [facility] [address] [place] [address] | | |<5 mg/dL: Reported as Not Detected | | |<10 mg/dL but >5 mg/dL: Reported as <10 mg/dL | | |>10 mg/dL: Reported as measured numeric value | | | | | |Test performed by: | | |[facility] | | |[address] | | |[place] [address] | | + + + + + + + + | Performing | Address | City/State/Zipcode | Phone Number | | Organization | | | | + + + + + | [facility] | | | | + + + + + | [facility] | see below | | | + + + + + CAPILLARY BLOOD GLUCOSE (NO CHG), POC (08/26/2015 3:09 AM PST) + +---------+ + + + | Component | Value | Ref Range | Performed | Pathologist | | | | | At | Signature | + +---------+ + + + | BLOOD | 247 (H) | 60 - 99 mg/dL | [facility] - | | | GLUCOSE, | | | [facility] | | | POC | | | [facility] | | | | | | OF CARE | | | | | | TESTS | | + +---------+ + + + + + | Specimen | + + | | + + + + + + + | Performing | Address | City/State/Zipcode | Phone Number | | Organization | | | | + + + + + | [facility] | [address] | [place], [place] | | | [facility] | [address] | [address] | | | TESTS | | | | + + + + + LIPID SET (TRIG, T CHOL, HDL, CALC LDL) (08/26/2015 2:37 AM PST) + +---------+ + + + | Component | Value | Ref Range | Performed | Pathologist | | | | | At | Signature | + +---------+ + + + | CHOLESTEROL | 193 | <200 mg/dL | [facility] | | | (LAB) | | | LABORATORY | | | | | | SERVICES, | | | | | | CORE | | + +---------+ + + + | TRIGLYCERID | 115 | <150 mg/dL | [facility] | | | ES | | | LABORATORY | | | | | | SERVICES, | | | | | | CORE | | + +---------+ + + + | HDL | 37 (L) | >40 mg/dL | [facility] | | | CHOLESTEROL | | | LABORATORY | | | | | | SERVICES, | | | | | | CORE | | + +---------+ + + + | HDL CMNT | No Hemo | | [facility] | | | | | | LABORATORY | | | | | | SERVICES, | | | | | | CORE | | + +---------+ + + + | LDL | 133 (H) | <100 mg/dL | [facility] | | | CHOLESTEROL | | | LABORATORY | | | , | | | SERVICES, | | | CALCULATED | | | CORE | | + +---------+ + + + | VLDL | 23 | <31 mg/dL | [facility] | | | CHOLESTEROL | | | LABORATORY | | | , | | | SERVICES, | | | CALCULATED | | | CORE | | + +---------+ + + + | NON-HDL | 156 (H) | <130 mg/dL | [facility] | | | CHOLESTEROL | | | LABORATORY | | | | | | SERVICES, | | | | | | CORE | | + +---------+ + + + + + | Specimen | + + | Blood - Blood | | (substance) | + + + + + | Narrative | Performed At | + + + | Cholesterol Reference Range: Desirable: <200 | [facility] | | mg/dL Borderline High: 200 - 239 mg/dL | LABORATORY | | High: >=240 mg/dL LDL Cholesterol | SERVICES, CORE | | Reference Range: Optimal: <100 mg/dL | | | Near Optimal: 100-129 mg/dL Borderline High: 130-159 | | | mg/dL High: 160-189 mg/dL | | | Very High: >=190 mg/dL non-HDL Cholesterol Reference Range: | | | Optimal: <130 mg/dL Near Optimal: | | | 130-159 mg/dL Borderline High: 160-189 mg/dL | | | High: 190-209 mg/dL Very High: | | | >=210 mg/dL Triglyceride Reference Range: | | | Normal: <150 mg/dL Borderline High: 150-199 mg/dL | | | High: 200-499 mg/dL Very High: >=500 mg/dL | | | HDL Reference Range: High Risk: <40 mg/dL | | | Desirable: >=60 mg/dL | | + + + + + + + + | Performing | Address | City/State/Zipcode | Phone Number | | Organization | | | | + + + + + | [facility] | [address] | [place] [address] | | | SERVICES, CORE | [address] | | | + + + + + BASIC METABOLIC SET (NA, K, CL, TCO2, BUN, CR, GLU, CA) (08/26/2015 2:37 AM PST) + + + + + + | Component | Value | Ref Range | Performed | Pathologist | | | | | At | Signature | + + + + + + | GLUCOSE, | 267 (H) | 60 - 99 mg/dL | [facility] | | | PLASMA | | | LABORATORY | | | (LAB) | | | SERVICES, | | | | | | CORE | | + + + + + + | BUN, PLASMA | 13 | 6 - 20 mg/dL | [facility] | | | (LAB) | | | LABORATORY | | | | | | SERVICES, | | | | | | CORE | | + + + + + + | CREATININE | 0.68 (L) | 0.70 - 1.30 | [facility] | | | PLASMA | | mg/dL | LABORATORY | | | (LAB) | | | SERVICES, | | | | | | CORE | | + + + + + + | EGFR | >60 | >60 mL/min | [facility] | | | - | | | LABORATORY | | | BERMUDIAN | | | SERVICES, | | | | | | CORE | | + + + + + + | EGFR NON | >60 | >60 mL/min | [facility] | | [...] + + + + | POTASSIUM, | 3.3 (L) | 3.4 - 5.0 | [facility] | | | PLASMA | | mmol/L | LABORATORY | | | (LAB) | | | SERVICES, | | | | | | CORE | | + + + + + + | CHLORIDE, | 103 | 97 - 108 mmol/L | [facility] | | | PLASMA | | | LABORATORY | | | (LAB) | | | SERVICES, | | | | | | CORE | | + + + + + + | TOTAL CO2, | 29 | 21 - 32 mmol/L | [facility] | | | PLASMA | | | LABORATORY | | | (LAB) | | | SERVICES, | | | | | | CORE | | + + + + + + | CALCIUM, | 7.9 (L) | 8.6 - 10.2 | [facility] | | | PLASMA | | mg/dL | LABORATORY | | | (LAB) | | | SERVICES, | | | | | | CORE | | + + + + + + | ANION GAP | 10 | mmol/L | [facility] | | | | [...] using the MDRD equation recommended by the | [facility] | | National Kidney Disease Education Program. Estimated GFR | LABORATORY | | Interpretive Information: <60 mL/min/1.73 sq m | SERVICES, CORE | | Chronic Kidney Disease <15 mL/min/1.73 sq m | | | Kidney Failure Estimated GFR greater that 60 mL/min/1.73 sq m is of | | | limited clinical value. The MDRD equation is not valid in the | | | following situations: - Patients under 18 years of age - Severe | | | malnutrition or obesity - Vegetarian diet - Rapidly changing kidney | | | function | | + + + + + + + + | Performing | Address | City/State/Zipcode | Phone Number | | Organization | | | | + + + + + | [facility] | [address] | [place] [address] | | | [facility] | [address] | | | + + + + + LACTIC ACID (08/26/2015 2:37 AM PST) + +-------+ + + + | Component | Value | Ref Range | Performed | Pathologist | | | | | At | Signature | + +-------+ + + + | LACTATE | 3.9 | mmol/L | [facility] | | | | | | LABORATORY | | | | | | SERVICES, | | | | | | CORE | | + +-------+ + + + + + | Specimen | + + | Blood - Blood | | (substance) | + + + + + | Narrative | Performed At | + + + | Reference Range: Venous blood: 0.5 - 2.2 mmol/L | [facility] | | Arterial blood: 0.5 - 1.6 mmol/L | LABORATORY | | | SERVICES, CORE | + + + + + + + + | Performing | Address | City/State/Zipcode | Phone Number | | Organization | | | | + + + + + | [facility] | [address] | [place] [address] | | | SERVICES, ZOE[facility] | [address] | | | + + + + + CAPILLARY BLOOD GLUCOSE (NO CHG), POC (08/26/2015 2:30 AM PST) + +---------+ + + + | Component | Value | Ref Range | Performed | Pathologist | | | | | At | Signature | + +---------+ + + + | BLOOD | 297 (H) | 60 - 99 mg/dL | [facility] - | | | GLUCOSE, | | | [facility] | | | POC | | | [facility] | | | | | | OF CARE | | | | | | TESTS | | + +---------+ + + + + + | Specimen | + + | | + + + + + + + | Performing | Address | City/State/Zipcode | Phone Number | | Organization | | | | + + + + + | [facility] | [address] | [place], [place] | | | [facility] | [address] | [address] | | | TESTS | | | | + + + + + CAPILLARY BLOOD GLUCOSE (NO CHG), POC (08/26/2015 2:00 AM PST) + +---------+ + + + | Component | Value | Ref Range | Performed | Pathologist | | | | | At | Signature | + +---------+ + + + | BLOOD | 332 (H) | 60 - 99 mg/dL | [facility] - | | | GLUCOSE, | | | [facility] | | | POC | | | [facility] | | | | | | OF CARE | | | | | | TESTS | | + +---------+ + + + + + | Specimen | + + | | + + + + + + + | Performing | Address | City/State/Zipcode | Phone Number | | Organization | | | | + + + + + | [facility] | [address] | [place], [place] | | | [facility] | [address] | [address] | | | TESTS | | | | + + + + + CAPILLARY BLOOD GLUCOSE (NO CHG), POC (08/26/2015 1:29 AM PST) + +---------+ + + + | Component | Value | Ref Range | Performed | Pathologist | | | | | At | Signature | + +---------+ + + + | BLOOD | 426 (H) | 60 - 99 mg/dL | [facility] - | | | GLUCOSE, | | | [place] | | | POC | | | [facility] | | | | | | OF CARE | | | | | | TESTS | | + +---------+ + + + + + | Specimen | + + | | + + + + + + + | Performing | Address | City/State/Zipcode | Phone Number | | Organization | | | | + + + + + | [facility] | [address] | [place], [place] | | | [facility] | [address] | [address] | | | TESTS | | | | + + + + + CAPILLARY BLOOD GLUCOSE (NO CHG), POC (08/26/2015 12:49 AM PST) + + + + + + | Component | Value | Ref Range | Performed | Pathologist | | | | | At | Signature | + + + + + + | BLOOD | >500 (AA) | 60 - 99 mg/dL | [facility] | | | GLUCOSE, | | | [facility] | | | POC | | | [facility] | | | | | | OF CARE | | | | | | TESTS | | + + + + + + + + | Specimen | + + | | + + + + + + + | Performing | Address | City/State/Zipcode | Phone Number | | Organization | | | | + + + + + | [facility] | [address] | [place], [place] | | | [facility] | [address] | [address] | | | TESTS | | | | + + + + + CAPILLARY BLOOD GLUCOSE (NO CHG), POC (08/25/2015 11:51 PM PST) + + + + + + | Component | Value | Ref Range | Performed | Pathologist | | | | | At | Signature | + + + + + + | BLOOD | >500 (AA) | 60 - 99 mg/dL | [facility] - | | | GLUCOSE, | | | [facility] | | | POC | | | [facility] | | | | | | OF CARE | | | | | | TESTS | | + + + + + + + + | Specimen | + + | | + + + + + + + | Performing | Address | City/State/Zipcode | Phone Number | | Organization | | | | + + + + + | [facility] | [address] | [place], [place] | | | [facility] | [address] | [address] | | | TESTS | | | | + + + + + UA, JENNIFER ONLY (08/25/2015 10:37 PM PST) + + + + + + | Component | Value | Ref Range | Performed | Pathologist | | | | | At | Signature | + + + + + + | COLOR(UR) | Straw | | [facility] | | | | | | LABORATORY | | | | | | SERVICES, | | | | | | CORE | | + + + + + + | APPEARANCE | Clear | | [facility] | | | | | | LABORATORY | | | | | | SERVICES, | | | | | | CORE | | + + + + + + | GLUCOSE(UR) | >=500.0 (A) | Negative, 50.0 | [facility] | | | | | mg/dL | LABORATORY | | | | | | SERVICES, | | | | | | CORE | | + + + + + + | PROTEIN(LAB | 30.0 | Negative, 30.0 | [facility] | | | ) | | mg/dL | LABORATORY | | | | | | SERVICES, | | | | | | CORE | | + + + + + + | BILIRUBIN | Negative | Negative | [facility] | | | | | | LABORATORY | | | | | | SERVICES, | | | | | | CORE | | + + + + + + | UROBILINOGE | <2.0 | <2.0 mg/dL | [facility] | | | N | | | LABORATORY | | | | | | SERVICES, | | | | | | CORE | | + + + + + + | PH(UR) | 5.0 | 5.0 - 8.0 | [facility] | | | | | | LABORATORY | | | | | | SERVICES, | | | | | | CORE | | + + + + + + | BLOOD | Small (A) | Negative | [facility] | | | | | | LABORATORY | | | | | | SERVICES, | | | | | | CORE | | + + + + + + | KETONES | Negative | Negative mg/dL | [facility] | | | | | | LABORATORY | | | | | | SERVICES, | | | | | | CORE | | + + + + + + | NITRITES | Negative | Negative | [facility] | | | | | | LABORATORY | | | | | | SERVICES, | | | | | | CORE | | + + + + + + | LEUKOCYTE | Negative | Negative | [facility] | | | ESTERASE | | | LABORATORY | | | | | | SERVICES, | | | | | | CORE | | + + + + + + | SPECIFIC | 1.024 | 1.005 - 1.030 | [facility] | | | GRAVITY | | | LABORATORY | | | | | | SERVICES, | | | | | | CORE | | + + + + + + + + | Specimen | + + | Urine - Urine | | (substance) | + + + + + + + | Performing | Address | City/State/Zipcode | Phone Number | | Organization | | | | + + + + + | [facility] | [address] | [place] [address] | | | SERVICES, CORE | [address] | | | + + + + + URINE, MICROSCOPIC EXAM (08/25/2015 10:37 PM PST) + +-------+ + + + | Component | Value | Ref Range | Performed | Pathologist | | | | | At | Signature | + +-------+ + + + | RED CELLS | 3 | 0 - 3 /hpf | [facility] | | | | | | LABORATORY | | | | | | SERVICES, | | | | | | CORE | | + +-------+ + + + | WHITE CELLS | <1 | 0 - 5 /hpf | [facility] | | | | | | LABORATORY | | | | | | SERVICES, | | | | | | CORE | | + +-------+ + + + | BACTERIA | None | None /hpf | [facility] | | | | | | LABORATORY | | | | | | SERVICES, | | | | | | CORE | | + +-------+ + + + | YEAST (LAB) | None | None /hpf | [facility] | | | | | | LABORATORY | | | | | | SERVICES, | | | | | | CORE | | + +-------+ + + + | SQUAMOUS | None | None /hpf | [facility] | | | EPITHELIAL | | | LABORATORY | | | | | | SERVICES, | | | | | | CORE | | + +-------+ + + + | MUCOUS | None | None /hpf | [facility] | | | | | | LABORATORY | | | | | | SERVICES, | | | | | | CORE | | + +-------+ + + + | TRICHOMONAS | None | None /hpf | [facility] | | | | | | LABORATORY | | | | | | SERVICES, | | | | | | CORE | | + +-------+ + + + | NON-SQUAMOU | None | None /hpf | [facility] | | | S EPITH | | | LABORATORY | | | | | | SERVICES, | | | | | | CORE | | + +-------+ + + + | HYALINE | 0 | 0 - 2 /lpf | [facility] | | | CASTS | | | LABORATORY | | | | | | SERVICES, | | | | | | CORE | | + +-------+ + + + | GRANULAR | 0 | 0 - 2 /lpf | [facility] | | | CASTS | | | LABORATORY | | | | | | SERVICES, | | | | | | CORE | | + +-------+ + + + | CELLULAR | 0 | <=0 /lpf | [facility] | | | CASTS | | | LABORATORY | | | | | | SERVICES, | | | | | | CORE | | + +-------+ + + + | TRIPLE P04 | None | None /hpf | [facility] | | | CRYSTALS | | | LABORATORY | | | | | | SERVICES, | | | | | | CORE | | + +-------+ + + + | CALCIUM | None | None /hpf | [facility] | | | OXALATE | | | LABORATORY | | | NORMA | | | SERVICES, | | | | | | CORE | | + +-------+ + + + | URIC ACID | None | None /hpf | [facility] | | | CRYSTALS | | | LABORATORY | | | | | | SERVICES, | | | | | | CORE | | + +-------+ + + + | AMORPHOUS | None | None /hpf | [facility] | | | CRYSTALS | | | LABORATORY | | | | | | SERVICES, | | | | | | CORE | | + +-------+ + + + + + | Specimen | + + | Urine - Urine | | (substance) | + + + + + + + | Performing | Address | City/State/Zipcode | Phone Number | | Organization | | | | + + + + + | [facility] | [address] | [place] [address] | | | SERVICES, CORE | [address] | | | + + + + + URINE SCREEN FOR CULTURE (08/25/2015 10:37 PM PST) + + + + + + | Component | Value | Ref Range | Performed | Pathologist | | | | | At | Signature | + + + + + + | URINE | Negative | Negative | [facility] | | | SCREEN FOR | | | LABORATORY | | | CULTURE | | | SERVICES, | | | | | | CORE | | + + + + + + + + | Specimen | + + | Urine - Urine | | (substance) | + + + + + | Narrative | Performed At | + + + | Culture Screen Negative. Culture not indicated. | [facility] | | | LABORATORY | | | SERVICES, CORE | + + + + + + + + | Performing | Address | City/State/Zipcode | Phone Number | | Organization | | | | + + + + + | [facility] | [address] | [place] [address] | | | SERVICES, CORE | [address] | | | + + + + + CHEM 8 W/H&H,POC (08/25/2015 9:41 PM PST) + + + + + + | Component | Value | Ref Range | Performed | Pathologist | | | | | At | Signature | + + + + + + | SODIUM, POC | 128 (L) | 134 - 143 | [facility] - | | | | | mmol/L | [facility] | | | | | | [facility] | | | | | | OF CARE | | | | | | TESTS | | + + + + + + | POTASSIUM, | 4.8 | 3.4 - 5.0 | [facility] - | | | POC | | mmol/L | [facility] | | | | | | [facility] | | | | | | OF CARE | | | | | | TESTS | | + + + + + + | CHLORIDE, | 90.0 (L) | 97 - 108 mmol/L | [facility] - | | | POC | | | [facility] | | | | | | [facility] | | | | | | OF CARE | | | | | | TESTS | | + + + + + + | IONIZED | 1.10 (L) | 1.14 - 1.32 | [facility] - | | | CALCIUM, | | mmol/L | [facility] | | | POC | | | [facility] [facility] | | | | | | OF CARE | | | | | | TESTS | | + + + + + + | TCO2, POC | 24 | 22 - 29 mmol/L | [facility] - | | | | | | [facility] | | | | | | [place] [facility] | | | | | | OF CARE | | | | | | TESTS | | + + + + + + | GLUCOSE, | >700 (AA) | 60 - 99 mg/dL | [facility] - | | | POC | | | [facility] | | | | | | [facility] | | | | | | OF CARE | | | | | | TESTS | | + + + + + + | BUN, POC | 18 | 6 - 20 mg/dL | [facility] - | | | | | | [facility] | | | | | | [facility] | | | | | | OF CARE | | | | | | TESTS | | + + + + + + | CREATININE, | 0.8 | 0.7 - 1.3 mg/dL | [facility] - | | | POC | | | [facility] | | | | | | [facility] | | | | | | OF CARE | | | | | | TESTS | | + + + + + + | HEMOGLOBIN, | 14.6 | 13.5 - 17.5 | [facility] - | | | POC | | g/dL | [facility] | | | | | | [facility] | | | | | | OF CARE | | | | | | TESTS | | + + + + + + | HEMATOCRIT, | 43 | 41.0 - 53.0 | [facility] - | | | POC | | %PCV | [facility] | | | | | | [facility] | | | | | | OF CARE | | | | | | TESTS | | + + + + + + + + | Specimen | + + | | + + + + + + + | Performing | Address | City/State/Zipcode | Phone Number | | Organization | | | | + + + + + | [facility] | [address] | [place], [place] | | | [facility] | [address] | [address] | | | TESTS | | | | + + + + + ED BG-LAC,POC (08/25/2015 9:37 PM PST) + + + + + + | Component | Value | Ref Range | Performed | Pathologist | | | | | At | Signature | + + + + + + | ED BG POC | 28 | 23 - 29 mmol/L | [facility] - | | | TC02 | | | [facility] | | | | | | [facility] | | | | | | OF CARE | | | | | | TESTS | | + + + + + + | ED BG POC | 7.31 (L) | 7.35 - 7.45 | [facility] - | | | PH | | | [facility] | | | | | | [facility] | | | | | | OF CARE | | | | | | TESTS | | + + + + + + | ED BG POC | 53 (H) | 35 - 50 mmHg | [facility] - | | | PCO2 | | | [facility] | | | | | | [facility] | | | | | | OF CARE | | | | | | TESTS | | + + + + + + | ED BG POC | 26 | 22 - 28 mmol/L | [facility] - | | | HCO3 | | | [facility] | | | | | | [facility] | | | | | | OF CARE | | | | | | TESTS | | + + + + + + | ED BG POC | 0.0 | mmol/L | [facility] - | | | BE | | | [facility] | | | | | | [facility] | | | | | | OF CARE | | | | | | TESTS | | + + + + + + | ED BG POC | <50 (L) | 30 - 55 mmHg | [facility] - | | | PO2 | | | [facility] | | | | | | [facility] | | | | | | OF CARE | | | | | | TESTS | | + + + + + + | ED BG POC | 34 | % | [facility] - | | | SO2 | | | [facility] | | | | | | [facility] | | | | | | OF CARE | | | | | | TESTS | | + + + + + + | ED LACTATE | 2.4 (H) | 0.5 - 2.2 | [facility] - | | | POC | | mmol/L | [facility] | | | | | | [facility] | | | | | | OF CARE | | | | | | TESTS | | + + + + + + | ED BG POC | 98.2 F | | [facility] - | | | TEMP | | | [facility] | | | | | | [facility] | | | | | | OF CARE | | | | | | TESTS | | + + + + + + | ISTAT | VENOUS | | [facility] - | | | SAMPLE TYPE | | | [facility] | | | | | | [facility] | | | | | | OF CARE | | [...] | [facility] | [address] | [place], [place] | | | [facility] | [facility] | [address] | | | TESTS | | | | + + + + + 12 LEAD ECG (08/25/2015 9:36 PM PST) + + + + + + | Component | Value | Ref Range | Performed | Pathologist | | | | | At | Signature | + + + + + + | VENTRICULAR | 136 | bpm | [facility] | | | RATE | | | OF | | | | | | CARDIOLOGY | | + + + + + + | ATRIAL RATE | 137 | bpm | [facility] | | | | | | OF | | | | | | CARDIOLOGY | | + + + + + + | P-R | 60 | ms | [facility] | | | INTERVAL | | | OF | | | | | | CARDIOLOGY | | + + + + + + | P AXIS | 0 | deg | [facility] | | | | | | OF | | | | | | CARDIOLOGY | | + + + + + + | QRS | 86 | ms | [facility] | | | DURATION | | | OF | | | | | | CARDIOLOGY | | + + + + + + | QT | 312 | ms | [facility] | | | | | | OF | | | | | | CARDIOLOGY | | + + + + + + | QTC-BAZETT | 470 | ms | [facility] | | | | | | OF | | | | | | CARDIOLOGY | | + + + + + + | R AXIS | -65 | deg | [facility] | | | | | | OF | | | | | | CARDIOLOGY | | + + + + + + | T AXIS | 60 | deg | [facility] | | | | | | OF | | | | | | CARDIOLOGY | | + + + + + + | ECG | SINUS TACHYCARDIALEFT | | [facility] | | | IMPRESSION | ANTERIOR FASCICULAR | | OF | | | | BLOCKBORDERLINE | | CARDIOLOGY | | | | PROLONGED QT INTERVAL- | | | | | | ABNORMAL ECG | | | | | | -Electronically signed | | | | | | by: SHWETHA PABLO | | | | | | 08-26-2015 20:16:23 | | | | + + + [...] + + + + + | [facility] | [id number] | [place], [place] | | | CARDIOLOGY | [address] | [address] | | + + + + + RAINBOW HOLD TUBE - RED TOP (08/25/2015 9:33 PM PST) + + | Specimen | + + | Blood - Blood | | (substance) | + + + + + + + | Performing | Address | City/State/Zipcode | Phone Number | | Organization | | | | + + + + + | [facility] | [id number] | [place] [address] | | | [address] | [address] | | | + + + + + RAINBOW HOLD TUBE - BLUE TOP (08/25/2015 9:33 PM PST) + + | Specimen | + + | Blood - Blood | | (substance) | + + + + + + + | Performing | Address | City/State/Zipcode | Phone Number | | Organization | | | | + + + + + | [facility] | [id number] | [place] [place] [address] | | | [address] | [address] | | | + + + + + CBC AND AUTO DIFF (08/25/2015 9:33 PM PST) + + + + + + | Component | Value | Ref Range | Performed | Pathologist | | | | | At | Signature | + + + + + + | WHITE CELL | 7.52 | 4.40 - 11.00 | [facility] | | | COUNT | | K/cu mm | LABORATORY | | | | | | SERVICES, | | | | | | CORE | | + + + + + + | RED CELL | 4.51 | 4.50 - 6.00 | [facility] | | | COUNT | | M/cu mm | LABORATORY | | | | | | SERVICES, | | | | | | CORE | | + + + + + + | HEMOGLOBIN | 13.4 (L) | 13.5 - 17.5 | [facility] | | | | | g/dL | LABORATORY | | | | | | SERVICES, | | | | | | CORE | | + + + + + + | HEMATOCRIT | 40.0 (L) | 41.0 - 53.0 % | [facility] | | | | | | LABORATORY | | | | | | SERVICES, | | | | | | CORE | | + + + + + + | MCV | 88.7 | 80.0 - 96.0 fL | [facility] | | | | | | LABORATORY | | | | | | SERVICES, | | | | | | CORE | | + + + + + + | MCHC | 33.5 | 33.0 - 35.5 | [facility] | | | | | g/dL | LABORATORY | | | | | | SERVICES, | | | | | | CORE | | + + + + + + | RDW SD | 40.9 | 35.1 - 46.3 fL | [facility] | | | | | | LABORATORY | | | | | | SERVICES, | | | | | | CORE | | + + + + + + | PLATELET | 290 | 150 - 400 K/cu | [facility] | | | COUNT | | mm | LABORATORY | | | | | | SERVICES, | | | | | | CORE | | + + + + + + | MPV | 11.9 | 9.7 - 12.3 fL | [facility] [...] + + + + + + | NEUTROPHIL | 68.2 | 50.0 - 70.0 % | [facility] | | | % | | | LABORATORY | | | | | | SERVICES, | | | | | | CORE | | + + + + + + | LYMPHOCYTE | 23.5 | 18.0 - 42.0 % | [facility] | | | % | | | LABORATORY | | | | | | SERVICES, | | | | | | CORE | | + + + + + + | MONOCYTE % | 6.4 | 3.5 - 9.0 % | [facility] | | | | | | LABORATORY | | | | | | SERVICES, | | | | | | CORE | | + + + + + + | EOS % | 0.5 (L) | 1.0 - 3.0 % | [facility] | | | | | | LABORATORY | | | | | | SERVICES, | | | | | | CORE | | + + + + + + | BASO % | 0.9 | 0.0 - 2.0 % | [facility] | | | | | | LABORATORY | | | | | | SERVICES, | | | | | | CORE | | + + + + + + | IG% | 0.5Comment: Immature | 0.0 - 0.6 % | [facility] | | | | Granulocytes (IG) | | LABORATORY | | | | include metamyelocytes, | | SERVICES, | | | | myelocytes and | | CORE | | | | promyelocytes. Bands | | | | | | are not included in the | | | | | | IG count. Bands are | | | | | | included in the | | | | | | neutrophil count. | | | | + + + + + + | NEUTROPHIL | 5.12 | 1.80 - 7.70 | [facility] | | | # | | K/cu mm | LABORATORY | | | | | | SERVICES, | | | | | | CORE | | + + + + + + | LYMPHOCYTE | 1.77 | 1.00 - 4.80 | [facility] | | | # | | K/cu mm | LABORATORY | | | | | | SERVICES, | | | | | | CORE | | + + + + + + | MONOCYTE # | 0.48 | 0.10 - 0.90 | [facility] | | | | | K/cu mm | LABORATORY | | | | | | SERVICES, | | | | | | CORE | | + + + + + + | EOS # | 0.04 | 0.00 - 0.50 | [facility] | | | | | K/cu mm | LABORATORY | | | | | | SERVICES, | | | | | | CORE | | + + + + + + | BASO # | 0.07 | 0.00 - 0.10 | [facility] | | | | | K/cu mm | LABORATORY | | | | | | SERVICES, | | | | | | CORE | | + + + + + + | IG# | 0.04 (H) | 0.00 - 0.03 | [facility] | | | | | K/cu mm | LABORATORY | | | | | | SERVICES, | | | | | | CORE | | + + + + + + + + | Specimen | + + | Blood - Blood | | (substance) | + + + + + | Narrative | Performed At | + + + | Immature Granulocytes (IG) include metamyelocytes, myelocytes | [facility] | | and promyelocytes. Bands are not included in the IG count. Bands are | LABORATORY | | included in the neutrophil count. | SERVICES, CORE | + + + + + + + + | Performing | Address | City/State/Zipcode | Phone Number | | Organization | | | | + + + + + | [facility] | [address] | [place] [address] | | | SERVICES, CORE | [address] | | | + + + + + BLOOD BANK HOLD TUBE - DON T PROCESS (08/25/2015 9:33 PM PST) + + + + + + | Component | Value | Ref Range | Performed | Pathologist | | | | | At | Signature | + + + + + + | SPECIMEN | Sample received with | | [facility] | | | COLLECTED, | adeq label/volume to | | LABORATORY | | | HELD | process | | SERVICES, | | | | | | TRANSFUSION | | | | | | MEDICINE | | + + + + + + + + | Specimen | + + | Blood - Blood | + + + + + + + | Performing | Address | City/State/Zipcode | Phone Number | | Organization | | | | + + + + + | [facility] | [address] | [place] [address] | | | SERVICES, | [address] | | | | TRANSFUSION MEDICINE | | | | + + + + + COMPLETE METABOLIC SET (NA,K,CL,CO2,BUN,CREAT,GLUC,CA,AST,ALT,BILI TOTAL,ALK PHOS,ALB,PROT TOTAL) (08/25/2015 9:33 PM PST) + + + + + + | Component | Value | Ref Range | Performed | Pathologist | | | | | At | Signature | + + + + + + | GLUCOSE, | 850 (HH) | 60 - 99 mg/dL | [facility] | | | PLASMA | | | LABORATORY | | | (LAB) | | | SERVICES, | | | | | | CORE | | + + + + + + | BUN, PLASMA | 18 | 6 - 20 mg/dL | [facility] | | | (LAB) | | | LABORATORY | | | | | | SERVICES, | | | | | | CORE | | + + + + + + | CREATININE | 0.76 | 0.70 - 1.30 | [facility] | | | PLASMA | | mg/dL | LABORATORY | | | (LAB) | | | SERVICES, | | | | | | CORE | | + + + + + + | EGFR | >60 | >60 mL/min | [facility] | | | - | | | LABORATORY | | | BERMUDIAN | | | SERVICES, | | | | | | CORE | | + + + + + + | EGFR NON | >60 | >60 mL/min | [facility] | | | -SCOTT | | | LABORATORY | | | RICAN | | | SERVICES, | | | | | | CORE | | + + + + + + | SODIUM, | 128 (L) | 136 - 145 | [facility] | | | PLASMA | | mmol/L | LABORATORY | | | (LAB) | | | SERVICES, | | | | | | CORE | | + + + + + + | POTASSIUM, | 4.5 | 3.4 - 5.0 | [facility] | | | PLASMA | | mmol/L | LABORATORY | | | (LAB) | | | SERVICES, | | | | | | CORE | | + + + + + + | CHLORIDE, | 89 (L) | 97 - 108 mmol/L | [facility] | | | PLASMA | | | LABORATORY | | | (LAB) | | | SERVICES, | | | | | | CORE | | + + + + + + | TOTAL CO2, | 26 | 21 - 32 mmol/L | [facility] [...] + + + + | BILIRUBIN | 0.4 | 0.3 - 1.2 mg/dL | [facility] | | | TOTAL | | | LABORATORY | | | | | | SERVICES, | | | | | | CORE | | + + + + + + | TOTAL | 7.1 | 6.4 - 8.2 g/dL | [facility] | | | PROTEIN, | | | LABORATORY | | | PLASMA | | | SERVICES, | | | (LAB) | | | CORE | | + + + + + + | ALBUMIN, | 3.3 (L) | 3.5 - 4.7 g/dL | [facility] | | | PLASMA | | | LABORATORY | | | (LAB) | | | SERVICES, | | | | | | CORE | | + + + + + + | ALK PHOS | 111 | 53 - 128 U/L | [facility] | | | | | | LABORATORY | | | | | | SERVICES, | | | | | | CORE | | + + + + + + | AST(SGOT) | 23 | <=41 U/L | [facility] | | | | | | LABORATORY | | | | | | SERVICES, | | | | | | CORE | | + + + + + + | ALT (SGPT) | 37 | <=60 U/L | [facility] | | | | | | LABORATORY | | | | | | SERVICES, | | | | | | CORE | | + + + + + + | ANION | 14 (H) | 4 - 11 mmol/L | [facility] [...] + + + | ANION GAP | 13 | mmol/L | [facility] | | | | [...] using the MDRD equation recommended by the | [facility] | | National Kidney Disease Education Program. Estimated GFR | LABORATORY | | Interpretive Information: <60 mL/min/1.73 sq m | SERVICES, CORE | | Chronic Kidney Disease <15 mL/min/1.73 sq m | | | Kidney Failure Estimated GFR greater that 60 mL/min/1.73 sq m is of | | | limited clinical value. The MDRD equation is not valid in the | | | following situations: - Patients under 18 years of age - Severe | | | malnutrition or obesity - Vegetarian diet - Rapidly changing kidney | | | function | | + + + + + + + + | Performing | Address | City/State/Zipcode | Phone Number | | Organization | | | | + + + + + | [facility] | [address] | [place] [address] | | | SERVICES, CORE | [address] | | | + + + + + KETONE BODIES SCREEN, PLASMA (08/25/2015 9:33 PM PST) + + + + + + | Component | Value | Ref Range | Performed | Pathologist | | | | | At | Signature | + + + + + + | KETONE | 15 mg/dL (A) | Negative mg/dL | [facility] | | | BODIES | | | LABORATORY | | | SERUM | | | SERVICES, | | | | | | CORE | | + + + + + + + + | Specimen | + + | Blood - Blood | | (substance) | + + + + + + + | Performing | Address | City/State/Zipcode | Phone Number | | Organization | | | | + + + + + | [facility] | [address] | [place] [address] | | | SERVICES, CORE | [address] | | | + + + + + OSMOLALITY, PLASMA (08/25/2015 9:33 PM PST) + +---------+ + + + | Component | Value | Ref Range | Performed | Pathologist | | | | | At | Signature | + +---------+ + + + | OSMOLALITY, | 323 (H) | 275 - 295 | [facility] | | | MEASURED | | mOsm/kg H2O | LABORATORY | | | | | | SERVICES, | | | | | | CORE | | + +---------+ + + + | OSMOLALITY, | 301 (H) | 275-295 mOsm/kg | [facility] | | | CALCULATED | | H2O;Calculated | LABORATORY | | | | | | SERVICES, | | | | | as:(1.86xNa)+(G | CORE | | | | | eduardo/18)+(Urea/2 | | | | | | .8)+9 mOsm/kg | | | | | | H2O | | | + +---------+ + + + | OSMOLALITY | 22 (H) | -10 - 10 | [facility] | | | GAP | | mOsm/kg H2O | LABORATORY | | | | | | SERVICES, | | | | | | CORE | | + +---------+ + + + + + | Specimen | + + | Blood - Blood | | (substance) | + + + + + + + | Performing | Address | City/State/Zipcode | Phone Number | | Organization | | | | + + + + + | [facility] | [address] | [place] [address] | | | SERVICES, CORE | [address] | | | + + + + + LIPASE, PLASMA (08/25/2015 9:33 PM PST) + +--------+ + + + | Component | Value | Ref Range | Performed | Pathologist | | | | | At | Signature | + +--------+ + + + | LIPASE | 54 (L) | 152 - 353 U/L | [facility] | | | (LAB) | | | LABORATORY | | | | | | SERVICES, | | | | | | CORE | | + +--------+ + + + + + | Specimen | + + | Blood - Blood | | (substance) | + + + + + + + | Performing | Address | City/State/Zipcode | Phone Number | | Organization | | | | + + + + + | [facility] | [address] | [place] [address] | | | SERVICES, CORE | [address] | | | + + + + + CAPILLARY BLOOD GLUCOSE (NO CHG), POC (08/25/2015 9:32 PM PST) + + + + + + | Component | Value | Ref Range | Performed | Pathologist | | | | | At | Signature | + + + + + + | BLOOD | >500 (AA) | 60 - 99 mg/dL | [facility] - | | | GLUCOSE, | | | [facility] | | | POC | | | [facility] | | | | | | OF CARE | | [...] | [facility] | [address] | [place], [place] | | | [place] [facility] | [address] | [address] | | | TESTS | | | | + + + + + ED INFORMATION EXCHANGE (08/25/2015 9:25 PM PST) + + + + + + | Component | Value | Ref Range | Performed | Pathologist | | | | | At | Signature | + + + + + + | [facility] | [id number] | | [facility] | | | | [id number] | | MEDICAL | | | | | | TECHNOLOGIE | | | | | | S | | + + + + + + + + | Specimen | + + | | + + + + + | Narrative | Performed At | + + + | [facility] has no Care Guidelines for this patient. ED/UCC VISIT | [facility] | | TRACKING (3 MO.) Visit Date Location | MEDICAL | | Type Dx / Complaint | TECHNOLOGIES | | -------- | | | ---- | | | 08/25/2015 21:25 [facility] | | | Emergency [address]. Abdominal Pain 08/24/2015 16:44 | | | [facility] Emergency -Abd Pain | | | | | | -Epigastric pain | | | | | | -Cyclical vomiting, intractable | | | | | | -Hyperglycemia, unspecified | | | | | | -Abdominal Pain 08/18/2015 | | | 17:23 [facility] Emergency | | | -Gastroparesis | | | -Type 2 | | | diabetes mellitus with diabetic autonomic | | | | | | (poly)neuropathy | | | | | | -abd pain diabetic problem vomiting | | | | | | -Generalized abdominal pain | | | | | | -Cyclical vomiting, intractable | | | | | | -Abdominal Pain 08/09/2015 12:53 | | | [facility] Emergency | | | -Abdominal Pain | | | | | | -Generalized abdominal pain | | | | | | -abd pain | | | -Vomiting | | | | | | -Cyclical vomiting, | | | intractable 08/01/2015 20:43 [facility] | | | Hospital Emergency -Cyclical vomiting, intractable | | | | | | -vomiting abd pain | | | | | | -Hyperglycemia | | | | | | -Abdominal Pain | | | | | | -Generalized abdominal pain | | | | | | -Gastroparesis 07/26/2015 16:13 [facility] | | | [facility] Emergency -vomiting, pain, diabetic | | | | | | -Cyclical vomiting, not | | | intractable | | | -Vomiting | | | 05/30/2015 17:01 [facility] | | | Emergency -Abdominal Pain | | | | | | -Finger Injury | | | -abd | | | pain 05/29/2015 21:54 [facility] | | | Emergency -Gangrene | | | | | | -diabetic, blood sugars, abd pain | | | | | | -Abdominal Pain | | | | | | -Nausea with vomiting | | | | | | -Abdominal pain, unspecified site | | | | | | -Gastroparesis ED VISIT COUNT (1 YR.) Visits | | | Location ------ --------- [address] [place] [address] | | | [facility] | | | [place] [address] [place] [address] | | | [facility] [place] 14 Total Note: | | | Visits indicate total known visits. | | | | | | --- | | + + + + + + + + | Performing | Address | City/State/Zipcode | Phone Number | | Organization | | | | + + + + + | [facility] | [address] | [place], [place] | [phone] | | TECHNOLOGIES | [address] | [address] | | + + + + + documented in this encounter Visit Diagnoses + + | Diagnosis | + + | Diabetic ketoacidosis without coma associated with type 1 diabetes mellitus (HCC) - | | Primary | + + | Hyperglycemia Other abnormal glucose | + + | Type 1 diabetes mellitus with hyperglycemia (HCC) Type I (juvenile type) diabetes | | mellitus without mention of complication, not stated as uncontrolled | + + | Acute on chronic epigastric pain Abdominal pain, epigastric | + + | Fissure in skin of foot Other specified disorder of skin | + + | High serum osmolar gap | + + | Metabolic acidosis with respiratory acidosis Mixed acid-base balance disorder | + + | Lactic acid acidosis Acidosis | + + | Type 1 diabetes mellitus (HCC) Type I (juvenile type) diabetes mellitus without | | mention of complication, not stated as uncontrolled | + + | Dilutional hyponatremia Other disorders of neurohypophysis | + + | Hypertension Unspecified essential hypertension | + + | Diabetic gastroparesis associated with type 1 diabetes mellitus (HCC) | + + documented in this encounter Administered Medications + +--------+ +--------+------+------+ | Medication Order | MAR | Action | Dose | Rate | Site | | | Action | Date | | | | + +--------+ +--------+------+------+ | acetaminophen (TYLENOL) tablet | Given | 08/26/20 | 500 mg | | | | 500 mg 500 mg, oral, EVERY 4 | | 15 3:36 | | | | | HOURS NEEDED, Starting Tue | | PM PST | | | | | 08/26/15 at 0847, Until Wed | | | | | | | 08/27/15 at 2159, mild pain, | | | | | | | headache, fever | | | | | | + +--------+ +--------+------+------+ +---+---+ | | | +---+---+ + +---------+ +-------+-------+---+ | dextrose 5%-NaCl 0.45%-KCl 20 | New Bag | 08/26/20 | 250 | 250 | | | mEq/L IV infusion 250 mL/hr, | | 15 3:45 | mL/hr | mL/hr | | | intravenous, CONTINUOUS, Starting | | PM PST | | | | | 08/26/15 at 0615, Until Tue | | | | | | | 08/26/15 at 1822 | | | | | | + +---------+ +-------+-------+---+ +---------+ +-------+-------+---+ | New Bag | 08/26/20 | 250 | 250 | | | | 15 5:47 | mL/hr | mL/hr | | | | AM PST | | | | +---------+ +-------+-------+---+ +---+---+ | | | +---+---+ + +-------+ +-------+---+---+ | enoxaparin (LOVENOX) injection | Given | 08/26/20 | 40 mg | | | | 40 mg 40 mg, subcutaneous, EVERY | | 15 8:42 | | | | | EVENING, First dose on Tue | | PM PST | | | | | 08/26/15 at 2100, Until | | | | | | | Discontinued | | | | | | + +-------+ +-------+---+---+ +---+---+ | | | +---+---+ + +---------+ +--------+---+---+ | HYDROmorphone (DILAUDID) | IV Push | 08/25/20 | 0.5 mg | | | | injection 0.5 mg 0.5 mg, | | 15 11:46 | | | | | intravenous, ONCE, 1 dose, Mon | | PM PST | | | | | 08/25/15 at 2330 | | | | | | + +---------+ +--------+---+---+ +---+---+ | | | +---+---+ + +---------+ +--------+---+---+ | HYDROmorphone (DILAUDID) | New Bag | 08/26/20 | 0.5 mg | | | | injection 0.5 mg 0.5 mg, | | 15 8:36 | | | | | intravenous, EVERY 4 HOURS | | AM PST | | | | | NEEDED, Starting Tue08/26/15 at | | | | | | | 0210, Until Tue08/26/15 at 0847, | | | | | | | severe pain | | | | | | + +---------+ +--------+---+---+ +---------+ +--------+---+---+ | New Bag | 08/26/20 | 0.5 mg | | | | | 15 3:16 | | | | | | AM PST | | | | +---------+ +--------+---+---+ +---+---+ | | | +---+---+ + +---------+ +------+---+---+ | HYDROmorphone (DILAUDID) | New Bag | 08/27/20 | 1 mg | | | | injection 0.5-1 mg 0.5-1 mg, | | 15 11:50 | | | | | intravenous, EVERY 4 HOURS | | AM PST | | | | | NEEDED, Starting Tue08/26/15 at | | | | | | | 0847, Until Tue08/27/15 at 2159, | | | | | | | severe pain | | | | | | + +---------+ +------+---+---+ +---------+ +------+---+---+ | New Bag | 08/27/20 | 1 mg | | | | | 15 7:38 | | | | | | AM PST | | | | +---------+ +------+---+---+ | New Bag | 08/27/20 | 1 mg | | | | | 15 12:32 | | | | | | AM PST | | | | +---------+ +------+---+---+ +---+---+ | | | +---+---+ + +-------+ + +---+---+ | insulin glargine (LANTUS) | Given | 08/27/20 | 15 Units | | | | injection 15 Units 15 Units, | | 15 1:58 | | | | | subcutaneous, EVERY MORNING, | | PM PST | | | | | First dose (after last | | | | | | | modification) on Tue08/27/15 at | | | | | | | 1300, Until Discontinued | | | | | | + +-------+ + +---+---+ +---+---+ | | | +---+---+ + +-------+ + +---+---+ | insulin glargine (LANTUS) | Given | 08/26/20 | 20 Units | | | | injection 20 Units 20 Units, | | 15 3:18 | | | | | subcutaneous, EVERY MORNING, | | PM PST | | | | | First dose on Tue08/26/15 at | | | | | | | 1515, Until Discontinued | | | | | | + +-------+ + +---+---+ +---+---+ | | | +---+---+ + +-------+ +---------+---+---+ | insulin lispro (HUMALOG) | Given | 08/26/20 | 4 Units | | | | injection 5-10 Units 5-10 Units, | | 15 8:42 | | | | | subcutaneous, THREE TIMES DAILY | | PM PST | | | | | WITH MEALS, First dose on Tue | | | | | | | 08/26/15 at 1700, Until | | | | | | | Discontinued | | | | | | + +-------+ +---------+---+---+ +---+---+ | | | +---+---+ + +-------+ +---------+---+---+ | insulin lispro (HUMALOG) | Given | 08/27/20 | 2 Units | | | | injection subcutaneous, FOUR | | 15 11:50 | | | | | TIMES DAILY, First dose on Tue | | AM PST | | | | | 08/26/15 at 2200, Until | | | | | | | Discontinued | | | | | | + +-------+ +---------+---+---+ +---+---+ | | | +---+---+ + + + +---------+---+---+ | insulin regular bolus from | Bolus | 08/26/20 | 5 Units | | | | continuous infusion 1-50 Units | from | 15 12:54 | | | | | 1-50 Units, intravenous, BOLUS | Same Bag | AM PST | | | | | PRN, Starting 08/25/15 at | | | | | | | 2312, Until Tue08/26/15 at 1822, | | | | | | | Per [employer] Infusion Protocol | | | | | | + + + +---------+---+---+ +---+---+ | | | +---+---+ + + + + +-------+---+ | insulin regular in NaCl 0.9% IV | Rate/Dos | 08/26/20 | 2.2 | 2.2 | | | infusion 250 units/250 mL (1 | e Change | 15 5:38 | Units/hr | mL/hr | | | unit/mL) 0.1-50 Units/hr (0.1-50 | | PM PST | | | | | mL/hr), intravenous, CONTINUOUS, | | | | | | | Starting 08/25/15 at 2345, | | | | | | | Until 08/26/15 at 1822 | | | | | | + + + + +-------+---+ + + + +-------+---+ | Rate/Dose Change | 08/26/20 | 1.5 | 1.5 | | | | 15 4:32 | Units/hr | mL/hr | | | | PM PST | | | | + + + +-------+---+ | Rate/Dose Change | 08/26/20 | 1.8 | 1.8 | | | | 15 3:33 | Units/hr | mL/hr | | | | PM PST | | | | + + + +-------+---+ +---+---+ | | | +---+---+ + +-------+ +-------+---+---+ | lisinopril (PRINIVIL) tablet 10 | Given | 08/27/20 | 10 mg | | | | mg 10 mg, oral, DAILY, First | | 15 1:58 | | | | | dose on Tue08/27/15 at 1330, | | PM PST | | | | | Until Discontinued | | | | | | + +-------+ +-------+---+---+ +---+---+ | | | +---+---+ + +-------+ +-------+---+---+ | metoclopramide HCl (REGLAN) | Given | 08/26/20 | 10 mg | | | | tablet 10 mg 10 mg, oral, EVERY | | 15 8:45 | | | | | 6 HOURS NEEDED, Starting Tue | | AM PST | | | | | 08/26/15 at 0208, Until Tue | | | | | | | 08/27/15 at 2159, nausea/vomiting | | | | | | + +-------+ +-------+---+---+ +---+---+ | | | +---+---+ + +---------+ + +---+---+ | NaCl 0.9 % solution 1,000 mL, | New Bag | 08/25/20 | 1,000 mL | | | | intravenous, ONCE, 1 dose, Tue | | 15 11:47 | | | | | 08/26/15 at 0015 | | PM PST | | | | + +---------+ + +---+---+ +---+---+ | | | +---+---+ + +---------+ +---+-------+---+ | NaCl 0.9%-KCl 20 mEq/L IV | New Bag | 08/26/20 | | 500 | | | infusion intravenous, | | 15 4:13 | | mL/hr | | | CONTINUOUS, Starting e 08/26/15 | | AM PST | | | | | at 0430, Until Tue08/26/15 at | | | | | | | 0533, at 500 mL/hr | | | | | | + +---------+ +---+-------+---+ +---+---+ | | | +---+---+ + +-------+ +-------+---+---+ | omeprazole (PRILOSEC) capsule | Given | 08/27/20 | 40 mg | | | | 40 mg 40 mg, oral, DAILY, First | | 15 7:38 | | | | | dose on Tue08/26/15 at 0900, | | AM PST | | | | | Until Discontinued | | | | | | + +-------+ +-------+---+---+ +-------+ +-------+---+---+ | Given | 08/26/20 | 40 mg | | | | | 15 8:36 | | | | | | AM PST | | | | +-------+ +-------+---+---+ +---+---+ | | | +---+---+ documented in this encounter
--- OUTSIDE RECORDS SUMMARY | ~2020-01-14 | XMS | Encounter Summary ---
Demographics + + + | Address | [address] | | | [place] [address] | + + + | Home Phone [...] Author + + + | Author | [facility] | + + + | Organization | [facility] | + + + | Address | Unknown | + + + | Phone | Unavailable | + + + Support + + + + + | Name | Relationship | Address | Phone | + + + + + | Samantha Ramos | ECON | [address] # | | | | | [place] | | | | | [address] | | + + + + + Care Team Providers + +------+ + | Care Violent Crimes Detective Name | Role | Phone | [...] | Procedural Unit at | MD [place] [address] | | | | | [address] | [facility] | | | | | [address] | [place], [place] | | | | | [place], | [address] | | | | | [address]th floor [place], | [phone] | | | | | [place] [address] | | | | | | [phone] | | | +--------+ + + + [...] | | | | | [place], | | | | | | [place] [address] | | | | | | [phone] | | | | | | | | +--------+---------+ + + + documented as of this encounter Visit Diagnoses Not on filedocumented in this encounter"
--- OUTSIDE RECORDS SUMMARY | ~2020-01-14 | XMS | Encounter Summary ---
Demographics + + + | Address | [address] | | | [place] [address] | + + + | Home Phone | | + + + | Preferred Language | Unknown | + + + | Marital Status | Single | + + + | Confucianism Affiliation | Unknown | + + + | Race | Unknown | + + + | Ethnic Group | Unknown | + + + Author + + + | Author | [facility] | | | and [place] | + + + | Organization | [facility] | | | [...] [place] | | | | | [address] | | + + + + + Care Team Providers + +------+ + | Care Bottle Washing Machine Operator Name | Role | Phone | + +------+ + | Erich Yates | PCP | | + +------+ + Encounter Details +--------+ + + + + | Date | Type | Department | Care Team | Description | +--------+ + + + + | 03/16/ | Orders Only | [facility] | Winston Whitman MD | | | 2019 | | NEPHROLOGY [place] | [address] [place] | | | | | [address] [place] | [address] [place], [place] | | | | | [address] [place], [place] | [address] | | | | | [address] | | | | | | [phone] | | | +--------+ + + + [...] | EXTERNAL LAB: CBC | Routin | 03/16/2019 | | Results for this | | | e | 12:21 PM | | procedure are in the | | | | PDT | | results section. | + +--------+ + + + | PARATHYROID HORMONE, | Routin | 03/16/2019 | | Results for this | | INTACT | e | 12:21 PM | | procedure are in the | | | | PDT | | results section. | + +--------+ + + + | FERRITIN | Routin | 03/16/2019 | | Results for this | | | e | 12:21 PM | | procedure are in the | | | | PDT | | results section. | + +--------+ + + + | RENAL FUNCTION PANEL | Routin | 03/16/2019 | | Results for this | | | e | 12:21 PM | | procedure are in the | | | | PDT | | results section. | + +--------+ + + + documented in this encounter Results External Lab: CBC (03/16/2019 12:21 PM PDT) + + + + + + | Component | Value | Ref Range | Performed | Pathologist | | | | | At | Signature | + + + + + + | WBC | 9.3 | 4.5 - 11.0 10 | EXTERNAL | | | | | | LAB | | + + + + + + | Red Blood | 3.72 (A) | 4.3 - 5.7 10 | EXTERNAL | | | Cells | | | LAB | | | Counted | | | | | + + + + + + | Hemoglobin | 11.5 (A) | 13.5 - 18.0 | EXTERNAL | | | | | g/dL | LAB | | + + + + + + | Hematocrit, | 34.6 (A) | 41 - 60 % | EXTERNAL | | | POC | | | LAB | | + + + + + + | MCV | 93.0 | 81 - 99 fL | EXTERNAL | | | | | | LAB | | + + + + + + | MCH | 31 | 27 - 33 pg | EXTERNAL | | | | | | LAB | | + + + + + + | MCHC | 33 | 30 - 36 g/dL | EXTERNAL | | | | | | LAB | | + + + + + + | Platelet | 270 | 140 - 440 K/ L | EXTERNAL | | | Count | | | LAB | | | Plasma | | | | | + + + + + + | RDW-CV | 13.8 | 10.5 - 15.0 % | EXTERNAL [...] + + + | % Segmented | 61.8 | 39 - 80 % | EXTERNAL | | | | | | LAB | | | Neutrophils | | | | | + + + + + + | % | 23.2 (A) | 24 - 44 % | EXTERNAL | | | Lymphocytes | | | LAB | | + + + + + + | % Monocytes | 7.4 | 0 - 12 % | EXTERNAL | | | | | | LAB | | + + + + + + | % | 4.4 | 0 - 6 % | EXTERNAL | | | Eosinophils | | | LAB | | + + + + + + | % Basophils | 3.2 (A) | 0 - 2 % | [...] | | | + +---------+ + + Parathyroid Hormone, Intact (03/16/2019 12:21 PM PDT) + +-------+ + + + | Component | Value | Ref Range | Performed | Pathologist | | | | | At | Signature | + +-------+ + + + | PTH INTACT | 22.91 | 15 - 65 pg/mL | EXTERNAL | | | | | [...] | | | + +---------+ + + Ferritin (03/16/2019 12:21 PM PDT) + +-------+ + + + | Component | Value | Ref Range | Performed | Pathologist | | | | | At | Signature | + +-------+ + + + | Ferritin, | 214.8 | 30 - 400 ng/mL | EXTERNAL | | | External | [...] | | | + +---------+ + + Renal Function Panel (03/16/2019 12:21 PM PDT) + + + + + + | Component | Value | Ref Range | Performed | Pathologist | | | | | At | Signature | + + + + + + | Glucose, | 71 | 70 - 100 mg/dL | EXTERNAL | | | Fasting | | | LAB | | + + + + + + | BUN | 29 (A) | 6 - 23 mg/dL | EXTERNAL | | | | | | LAB | | + + + + + + | Creatinine | 1.66 (A) | 0.60 - 1.35 | EXTERNAL | | | | | mg/dL | LAB | | + + + + + + | PHOSPHORUS | 4.4 | 2.5 - 5.0 mg/dL | EXTERNAL | | | | | | LAB | | + + + + + + | Albumin | 2.8 (A) | 3.5 - 5.0 | EXTERNAL | | | | | | LAB | | + + + + + + | Na | 141 | 132 - 143 | EXTERNAL | | | | | mmol/L | LAB | | + + + + + + | K | 4.9 | 3.6 - 5.1 | EXTERNAL | | | | | mmol/L | LAB | | + + + + + + | Cl | 109 | 95 - 112 mmol/L | EXTERNAL | | | | | | LAB | | + + + + + + | CO2 | 23 | 19 - 31 mmol/L | EXTERNAL | | | | | | LAB | | + + + + + + | Anion Gap | 13.9 | 7 - 21 mmol/L | EXTERNAL | | | | | | LAB | | + + + + + + | eGFR if not | | | EXTERNAL | | | | | | LAB | | | [facility] | | | | | + + + + + + | Phosphorus, | | | EXTERNAL | | | Inorganic | | | LAB | | + + + + + + | BUN/Creatin | 17.5 | 6.0 - 28.6 | EXTERNAL | | | ine Ratio | | | LAB | | + + + + + + | Calcium | 8.4 (A) | 8.5 - 10.3 | EXTERNAL | | | | | mg/dL | LAB | | + + + + + + | Estimated | 17.5 | mg/dL | EXTERNAL | | | [...]
--- OUTSIDE RECORDS SUMMARY | ~2020-01-14 | XMS | Encounter Summary ---
Demographics + + + | Address | [address] | | | [place] [address] | + + + | Home Phone | | + + + | Preferred Language | Unknown | + + + | Marital Status | Single | + + + | Sabianist Affiliation | NON | + + + [...] Samantha Ramos | ECON | [address] # | | | | | [place] | | | | | [address] | | + + + + + Care Team Providers + +------+ + | Care Children'S Tutor Nursery Name | Role | Phone | + +------+ + | Erich Yates PA-C | PCP | | + +------+ + Encounter Details +--------+ + + + + | Date | Type | Department | Care Team | Description | +--------+ + + + + | 11/28/ | Anesthesia | [facility] at [facility] | Beth Nash, | | | 2019 | Event | [facility] [address] | RN [address] | | | | | [facility] | [facility] | | | | | for Health and | [place], [place] | | | | | [facility], Building [address] | [address] | | | | | [place], [place] | | | | | | [address] | | | | | | [phone] | | | +--------+ + + + [...] | | | | | [place], | | | | | | [place] [address] | | | | | | [phone] | | | | | | | | +--------+---------+ + + + documented as of this encounter Visit Diagnoses Not on filedocumented in this encounter"
--- OUTSIDE RECORDS SUMMARY | ~2020-01-14 | XMS | Encounter Summary ---
Demographics + + + | Address | [address] | | | [place] [address] | + + + | Home Phone | | + + + | Preferred Language | Unknown | + + + | Marital Status | Single | + + + | Samaritan Affiliation | NON | + + + [...] | Samantha Ramos | ECON | [address] | | | | | [place], [place] | | | | | [address] | | + + + + + Care Team Providers + +------+ + | Care Linoleum Tile Layer Name | Role | Phone | + [...] as of this encounter Progress Notes Interface, Heel Seat Fitter Machine In - 04/25/2005 12:43 AM PDT [id number] 09/30/2004 09/30/2003 [id number] NAHOMY Durbin [facility] [address] [place], [place] [id number] or September 30, 2004 Neri Mojica M.D. [address] [place] [address] RE: BROOKS MARQUEZ II MR #: [id number] Dear Dr. Mojica: Diagnoses: 1. Type 1 diabetes. 2. Currently poor control. 3. Poor compliance. I reviewed Brooks Ogden in our Pediatric Endocrinology Clinic for the first time today. Alin is a 13-year 29-ccoxl-xkx boy who was diagnosed with type 1 diabetes in April 2002, presenting with weight loss, polyuria, and polydipsia. Since Brooks was diagnosed, he has been mainly under your care for his diabetes, although he has been seen once at [facility]. His control has generally been very poor, and he has had 3 episodes of diabetic ketoacidosis, the last being in July 2004. At this episode, he was admitted to [facility] with moderate DKA, initial bicarbonate of 8. [...] his new step-father and brother in the [facility]. Though there is strong family history [...] Normal sensation. Summary: Alin is a 13-year 99-kpaum-rej boy with very poor diabetes control, secondary [...] or concerns. Yours sincerely, Ashanti Roque M.D. Reel Hooker of Pediatric Endocrinology / [id number] / [id number] / [id number] / documented i n this encounter Plan of Treatment +--------+---------+ + + + | Date | Type | Specialty | Care Team | Description | +--------+---------+ + + + | 01/24/ | Office | Surgery | Neri Steven MD | | | 2019 | Visit | | [address] | | | | | | [place], | | | | | | [place] [address] | | | | | | [phone] | | | | | | | | +--------+---------+ + + + documented as of this encounter Visit Diagnoses Not on filedocumented in this encounter"
--- OUTSIDE RECORDS SUMMARY | ~2020-01-14 | XMS | Encounter Summary ---
Demographics + + + | Address | [address] | | | [place] [address] | + + + | Home Phone | | + + + | Preferred Language | Unknown | + + + | Marital Status | Single | + + + | Nondenominational Affiliation | NON | + + + | Race | White | + + + | Ethnic Group | Not or | + + + Author + + + | Author | [facility] | + + + | Organization | [facility] | + + + | Address | Unknown | + + + | Phone | Unavailable | + + + Support + + + + + | Name | Relationship | Address | Phone | + + + + + | Samantha Ramos | ECON | [address] # | | | | | [place] | | | | | [address] | | + + + + + Care Team Providers + +------+ + | Care Fiber Optics Engineer Name | Role | Phone | [...] | Only | [facility] [address] | OPERATIONS PROCESSOR [address] | | | | | [address] | [address] | | | | | Mailcode: PV430 | [place] [address] | | | | | [facility] | [phone] | | | | | [place], [place] | | | | | | [address] | | | | | | [phone] | | | +--------+ + + + [...] | | | | | [address] [place], | | | | | | [place] [address] | | | | | | [phone] | | | | | | | [...]
--- OUTSIDE RECORDS SUMMARY | ~2020-01-14 | XMS | Encounter Summary ---
Demographics + + + | Address | [address] | | | [place] [address] | + + + | Home Phone | | + + + | Preferred Language | Unknown | + + + | Marital Status | Single | + + + | Gnosticism Affiliation | NON | + + + | Race | White | + + + | Ethnic Group | Not or | + + + Author + + + | Author | [facility] | + + + | Organization | [facility] | + + + | Address | Unknown | + + + | Phone | Unavailable | + + + Support + + + + + | Name | Relationship | Address | Phone | + + + + + | Samantha Ramos | ECON | [address] # | | | | | [place] | | | | | [address] | | + + + + + Care Team Providers + +------+ + | Care Customer Support Advisor Name | Role | Phone | + [...] | | | with type 1 | [address] | 140 | | | | | diabetes | Phone: | [place], [place] | | | | | mellitus | [phone] | [phone] | | | | | ([facility]) Type | Fax: | Phone: | | | | | 1 diabetes | [phone] | [phone] | | | | | mellitus | | Fax: | | | | | with | | [phone] | | | | | hyperglycemi | | | | | | | a ([facility]) | | | | | | | [...] | | | | | hyperglycemi | [facility], [place] | PPV05 | | | | | a ([facility]) | [address] | Physician's | | | | | Procedures | Phone: | [facility] Amar[facility] | | | | | CONSULT TO | [phone] | 140 | | | | | ADULT | Fax: | [place], [place] | | | | | DIABETES - | [phone] | [address] | | | | | EDUCATION | | Phone: | | | | | (DIABETES | | [phone] | | | | | SELF-MANAGEM | | Fax: | | | | | ENT) | | [phone] | +--------+--------+ + + + + Reason [...] + | 08/25/ | Hospital | [facility] [address] | [address] | | | 2015 - | Encounter | Nathalia Bernardo MD [address] | | | | | [address] [facility] | [address] | | | 08/27/ | | [place], [place] | [place], [place] | | | 2014 | | [address] | [address] | | | | | [phone] | [phone] | | | | | | | | | | | | Harris Martínez MD | | | | | | Chrissie | | | | | | [facility] | | | | | | Center [address] | | | | | | [address] [place], | | | | | | [place] [address] | | | | | | [phone] | | | | | | | | | | | | Jeff Diggs, | | | | | | ,MPH [address] | | | | | | [address] | | | | | | [place], [place] | | | | | | [address] | | | | | | [phone] | | | | | | | | | | | | Eunice Parada, | | | | | | [address] | | | | | | [address] | | | | | | [place], [place] | | | | | | [address] | | | | | | [phone] | | | | | | | [...] Procedures 1. Gastric emptying study Consulting Services: Buffer Automatic Reason For Admission: Diabetic ketoacidosis. Hyperglycemia, acute [...] y and diabetes education here at [facility] which were completed. He was counseled on how to rotat e sites for his insulin injections. - Continue glargine 15 units daily + lispro 1 unit per 15 g carb - Outpatient referral to endocrinology and breastfeeding educator - Will need outpatient follow up for [...] post-hospitalization follow-up; Appt at 740am Contact information [facility] [address] [place] [facility] [place] [place] [address] [facility] 1st Floor. Specialty: Endocrinology, Diabetes & Metabolism Why: To establish care; follow up on referral to endocrinology if you do not hear back fr om them in 1 week Contact information [address] [facility] [place] [address] Physicians [facility] [address] Additional information: [facility], 1st floor [address] [place], [place] [id number] [facility] is the building just past [facility] for [facility]. Turn right immediately past the Pavilion. The entrance to [facility] will be on your right just beyond the main doors to the Pavili. An elevator in e parking garage will take patients directly to the floor of the clinic. The [facility] is located on the 1st floor. Please check in at the front office administrator. M aps and directions can be found at: [email or web address] Other Discharge Orders and Instructions It was a pleasure taking care of you while you were here at [facility] 1) Take all your medications as prescribed especially your insulin and blood pressure medic ations 2) Follow up with your PCP Dr. Pascual on 09/02 at 740am. 3) Make sure to rotate location of where you inject your insulins and keep close track of y our blood sugars 4) We will make referral to [facility] endocrinology but please follow up with us [...] ER for evaluation. Referrals placed to [facility] endocrinology and breastfeeding educator This note was routed to patient's PCP in [employer]. EUNICE PARADA MD Pager - [phone] Track Hoe Operatorbrokerage manager Clinical and Medicine [facility] Services [facility] I spent 45 minutes coordinating care for this patient's discharge, of which 30 minutes were spent [id number] with the patient as well as with [...] about new lisinopril. Diabetes education provided by diabetic educator RNLiz. Pt reports he has all DM [...] documented as of this encounter Progress Notes Lzi Early RN - 08/27/2015 2:29 PM PST [...] is stating desire to establish with an Director Cardiology. Has not hooper d an separations scientist since "Dr Roque" during pediatric years at [facility]. Pt uses insulin syringe and vial [...] States willingness to come back to [facility] for endocrinology care, lives in [facility]. Hypoglycemia: reports 1-2 occurrences per week, states [...] steven. Pt expresses interest in establishing with separations scientist here at [facility], and is willing to review/discuss further insulin pumps with endocrinology team. Informed pt that insulin pump does not take away the work (still need to check BG levels an d count carbs and give bolus doses) Recommendations 1. Encourage pt to attend support group 2. Encourage improving DM self management and care 3. Refer to [facility] diabetes center for endocrinology care 4. Refer to breastfeeding educator in diabetes center for updating carb counting [...] LD, RN, CDE Inpatient Diabetes Education Pager: [phone] Eunice Rich MD - 08/26/2015 9:03 AM PST Internal Medicine Clinical Hospitalist Service Progress Note ID/CC: Brooks Marquez (Keith) is a 24 year old man with poorly controlled type 1 diabetes trent litus (HgbA1c in 06/2015 of 12.5%) here with diabetic ketoacidosis in setting of impaired in sulin absorption due to subcutaneous scar tissue with concurrent lactic acidosis (now [facility] ed), no clear infectious etiology for trigger [...] full code EUNICE PARADA MD Pager - [phone] Track Hoe Operatorbrokerage manager Clinical and Medicine Teaching Hospitalist Services [facility] I spent 40 minutes [id number] with the patient as well as with [...] | | | | | [address] [place], | | | | | | [place] [address] | | | | | | [phone] | | | | | | | [...] MARQUAM | [address] | [place], [place] | | | TANJA HAY OF CARE | [facility] | [address] | | | TESTS | | | [...] VERDE | [address] | [place], [place] | | | SATNAM POINT OF CARE | [address] | [address] | | | TESTS | | | [...] MARQUAM | [address] | [place], [place] | | | SATNAM POINT OF CARE | [address] | [address] | | | TESTS | | | [...] | | | LABORATORY | | | [employer] | | | SERVICES, | | | [...] + + + + + | [facility] [employer] | [address] | [place] [address] | | | SERVICES, CORE | ZENA [...] AMMON | [address] | [place], [place] | | | TANJA HAY OF ANNA | [facility] | [address] | | | TESTS | | | [...] | 60 - 99 mg/dL | [facility] - | | | GLUCOSE, | | [...] AMMON | [address] | [place], [place] | | | SATNAM POINT OF CARE | [address] | [address] | | | TESTS | | | [...] VERDE | [address] | [place], [place] | | | TANJA HAY OF ANNA | [facility] | [address] | | | TESTS | | | [...] AVELINAAM | [address] | [place], [place] | | | TANJA HAY OF ANNA | [facility] | [address] | | | TESTS | | | [...] | 60 - 99 mg/dL | [facility] - | | | GLUCOSE, | | [...] MARQUAM | [address] | [place], [place] | | | TANJA HAY OF [facility] | [address] | [address] | | | TESTS | | | [...] VERDE | [address] | [place], [place] | | | TANJA HAY OF CARE | [facility] | [address] | | | TESTS | | | [...] MARRADHAAM | [address] | [place], [place] | | | TANJA HAY OF ANNA | [facility] | [address] | | | TESTS | | | [...] | 60 - 99 mg/dL | [facility] - | | | GLUCOSE, | | [...] JACKELYNQUAM | [address] | [place], [place] | | | TANJA HAY OF [facility] | [address] | [address] | | | TESTS | | | [...] VERDE | [address] | [place], [place] | | | TANJA HAY OF ANNA | [facility] | [address] | | | TESTS | | | [...] MARRADHAAM | [address] | [place], [place] | | | TANJA HAY OF CARE | [facility] | [address] | | | TESTS | | | [...] | 60 - 99 mg/dL | [facility] - | | | GLUCOSE, | | [...] + + + | VERITO VERDE | [address] | [place], [place] | | | TANJA HAY OF [facility] | [address] | [address] | | | TESTS | | | [...] | | | LABORATORY | | | ZIMBABWEAN | | | SERVICES, | | | [...] + + + + + | [facility]ORY | [address] | [place] [address] | | | SERVICES, CORE | ZENA [...] | 60 - 99 mg/dL | [facility] - | | | GLUCOSE, | | [...] VERDE | [address] | [place], [place] | | | TANJA HAY OF [facility] | [address] | [address] | | | TESTS | | | [...] MARQUAM | [address] | [place], [place] | | | TANJA HAY OF CARE | [address] | [address] | | | TESTS | | | [...] MARQUAM | [address] | [place], [place] | | | SATNAM POINT OF CARE | [address] | [address] | | | TESTS | | | [...] VERDE | [address] | [place], [place] | | | TANJA HAY OF CARE | [address] | [address] | | | TESTS | | | [...] MARQUAM | [address] | [place], [place] | | | TANJA HAY OF CARE | [address] | [address] | | | TESTS | | | [...] MARQUAM | [address] | [place], [place] | | | SATNAM POINT OF CARE | [address] | [address] | | | TESTS | | | [...] VERDE | [address] | [place], [place] | | | TANJA HAY OF CARE | [address] | [address] | | | TESTS | | | [...] MARQUAM | [address] | [place], [place] | | | TANJA HAY OF CARE | [address] | [address] | | | TESTS | | | [...] | | | LABORATORY | | | ZIMBABWEAN | | | SERVICES, | | | [...] | + + + + + | [facility] | [address] [facility] [address] | [place] [address] | | | SERVICES, CORE | ZENA [...] | + + + + + | [facility] | [address] | [place] [address] | | | SERVICES, CORE | ZENA [...] MARQUAM | [address] | [place], [place] | | | TANJA HAY OF CARE | [address] | [address] | | | TESTS | | | [...] AMMON | [address] | [place], [place] | | | TANJA HAY OF CARE | [facility] | [address] | | | TESTS | | | [...] VERDE | [address] | [place], [place] | | | TANJA HAY OF CARE | [facility] | [address] | | | TESTS | | | [...] AMMON | [address] | [place], [place] | | | TANJA HAY OF ANNA | [address] | [address] | | | TESTS | | | [...] activity: 50-100 | | | mg/dLDepression of ARTERIAL EMBALMER: >100 mg/dLFatalities reported: >400 mg/dL | | | Acetone, Methanol and Isopropanol:<5 mg/dL: Reported as Not | | | Detected<10 mg/dL but >5 mg/dL: Reported as <10 mg/dL>10 mg/dL: | | | Reported as measured numeric value Test performed by: [facility] | | [facility] [address] [place] [address] | | |<5 mg/dL: Reported as Not Detected | | |<10 mg/dL but >5 mg/dL: Reported as <10 mg/dL | | |>10 mg/dL: Reported as measured numeric value | | | | | |Test performed by: | | |[facility] | | |[address] | | |[place] [address] | | + + + + + [...] | 60 - 99 mg/dL | [facility] - | | | GLUCOSE, | | [...] - AVELINAAM | [address] | [place], [place] | | | SATNAM POINT OF CARE | [address] | [address] | | | TESTS | | | [...] + + + + + | [facility] [employer] | [address] | [place] [address] | | | SERVICES, CORE | ZENA [...] | | | LABORATORY | | | ZIMBABWEAN | | | SERVICES, | | | [...] | + + + + + | [facility] | [address] [facility] [address] | [place] [address] | | | ZOEY DODD | ZENA [...] | + + + + + | [facility] | [address] | [place] [address] | | | SERVICES, ZOEY | ZENA [...] MARQUAM | [address] | [place], [place] | | | TANJA HAY OF CARE | [address] | [address] | | | TESTS | | | [...] AVELINAAM | [address] | [place], [place] | | | SATNAM POINT OF CARE | [address] | [address] | | | TESTS | | | [...] | 60 - 99 mg/dL | [facility] - | | | GLUCOSE, | | [...] VERDE | [address] | [place], [place] | | | TANJA HAY OF ANNA | [address] | [address] | | | TESTS | | | [...] MARQUAM | [address] | [place], [place] | | | SATNAM POINT OF CARE | [address] | [address] | | | TESTS | | | [...] - AMMON | [address] | [place], [place] | | | SATNAM POINT OF CARE | [address] | [address] | | | TESTS | | | [...] [facility] | [address] | [place] [address] | | | SERVICES, CORE | [address] [...] [facility] | [address] | [place] [address] | | | SERVICES, CORE | [address] [...] | + + + + + | [facility] | [address] | [place] [address] | | | SERVICES, CORE | ZENA [...] (L) | 134 - 143 | [facility] - | | | | | mmol/L | AMMON | | | | | | TANJA HAY | | | | | | OF CARE | | | | | | TESTS | | + + + + + + | POTASSIUM, | 4.8 | 3.4 - 5.0 | [facility] - | | | POC | | [...] AMMON | [address] | [place], [place] | | | TANJA HAY OF ANNA | [address] | [address] | | | TESTS | | | [...] VERDE | [address] | [place], [place] | | | TANJA HAY OF ANNA | [facility] | [address] | | | TESTS | | | [...] DEPT OF | [address] | [place], [place] | | | CARDIOLOGY | [address] | [address] | | + + + + + [...] [facility] | [address] | [place] [address] | | | ZOEY DODD | ZENA [...] | + + + + + | [facility] | [address] | [place] [address] | | | ZOEY DODD | ZENA [...] [facility] | [address] | [place] [address] | | | SERVICES, CORE | ZENA [...] | + + + + + | [facility] [employer] | [address] [facility] | [place] [address] | | | SERVICES, | [address] [...] | | | LABORATORY | | | ZIMBABWEAN | | | SERVICES, | | | [...] [facility] | [address] | [place] [address] | | | SERVICES, CORE | [address] [...] | + + + + + | [facility] | [address] | [place] [address] | | | SERVICES, CORE | ZENA [...] | + + + + + | [facility] | [address] | [place] [address] | | | SERVICES, CORE | ZENA [...] [facility] | [address] | [place] [address] | | | SERVICES, CORE | [address]ARK [...] VERDE | [address] | [place], [place] | | | SATNAM POINT OF [facility] | [address] | [address] | | | TESTS | | | | + + + + + ED INFORMATION EXCHANGE (08/25/2015 9:25 PM PST) + + + + + + | Component | Value | Ref Range | Performed | Pathologist | | | | | At | Signature | + + + + + + | [facility] | [id number] | | [facility] | | | | [id number] | | MEDICAL | | | | [...] | ---- | | | 08/25/2015 21:25 [facility] | | | Emergency [address]. Abdominal Pain 08/24/2015 16:44 | | | [facility] Emergency -Abd Pain | | | | | | -Epigastric pain | | | | | | -Cyclical vomiting, intractable | | | | | | -Hyperglycemia, unspecified | | | | | | -Abdominal Pain 08/18/2015 | | | 17:23 [facility] Emergency | | | -Gastroparesis | | [...] -Abdominal Pain 08/09/2015 12:53 | | | [facility] Emergency | | | -Abdominal Pain | | | | | | -Generalized abdominal pain | | | | | | -abd pain | | | -Vomiting | | | | | | -Cyclical vomiting, | | | intractable 08/01/2015 20:43 [facility] | | | Hospital Emergency -Cyclical vomiting, intractable | | | | | | -vomiting abd pain | | | | | | -Hyperglycemia | | | | | | -Abdominal Pain | | | | | | -Generalized abdominal pain | | | | | | -Gastroparesis 07/26/2015 16:13 [facility] | | | [facility] Emergency -vomiting, pain, diabetic | | | | | | -Cyclical vomiting, not | | | intractable | | | -Vomiting | | | 05/30/2015 17:01 [facility] | | | Emergency -Abdominal Pain | | | | | | -Finger Injury | | | -abd | | | pain 05/29/2015 21:54 [facility] | | | Emergency -Gangrene | | | | | | -diabetic, blood sugars, abd pain | | | | | | -Abdominal Pain | | | | | | -Nausea with vomiting | | | | | | -Abdominal pain, unspecified site | | | | | | -Gastroparesis ED VISIT COUNT (1 YR.) Visits | | | Location ------ --------- [address] [place] [address] | | | [facility] | | | [place] [address] [place] [address] | | | [facility] [place] 14 Total Note: | | | Visits indicate total known visits. | | | | | | --- | | + + + + + + + + | Performing | Address | City/State/Zipcode | Phone Number | | Organization | | | | + + + + + | [facility] | [address] | [place], [place] | [phone] | | [employer] | [address] | [address] | | + + + + + [...]
--- OUTSIDE RECORDS SUMMARY | ~2020-01-14 | XMS | Encounter Summary ---
Demographics + + + | Address | [address] | | | [place] [address] | + + + | Home Phone | | + + + | Preferred Language | Unknown | + + + | Marital Status | Single | + + + | Spiritism Affiliation | NON | + + + [...] Samantha Ramos | ECON | [address] | | | | | [place] | | | | | [address] | | + + + + + Care Team Providers + +------+ + | Care Machine Room Engineer Name | Role | Phone | [...] 08/01/ | Abstract | Digestive Health | Kishan Alison G, | Medical Records | | 2019 | | Center at [facility] [address] | [address] | Review | | | | [address] [facility] | [address] [place], [place] | | | | | for Health and | [address] | | | | | [facility] 2 | [phone] | | | | | [place], [place] | | | | | | [address] | | | | | | [phone] | | | +--------+ + + + [...] | | | | | [place], | | | | | | [place] [address] | | | | | | [phone] | | | | | | | | +--------+---------+ + + + documented as of this encounter Visit Diagnoses Not on filedocumented in this encounter"
--- OUTSIDE RECORDS SUMMARY | ~2020-01-14 | XMS | Clinical Summary ---
Demographics + + + | Address | [address] | | | [place] [address] | + + + | Home Phone [...] Author + + + | Author | [facility] | + + + | Organization | [facility] | + + + | Address | Unknown | + + + | Phone | Unavailable | + + + Support + + + + + | Name | Relationship | Address | Phone | + + + + + | Samantha Ramos | ECON | [address] | | | | | [place], [place] | | | | | [address] | | + + + + + Care Team Providers + +------+ + | Care Core Mounter Name | Role | Phone | + +------+ + | Erich Yates PA-C | PCP | | + +------+ + Source Comments [facility] both [facility] and [facility] Allergies + + + + + + | Active Allergy | Reactions | Severity | Noted | Comments | | | | | Date | | + + + + + + | Codeine | Nausea and Vomiting | | 12/06/19 | | | | | | 03 | | + + + + + + Medications + + + +---------+------+------+-------+ | Medication | Sig | Dispensed | Refills | Star | End | Statu | | | | | | t | Date | s | | | | | | Date | | | + + + +---------+------+------+-------+ | Blood Sugar | use to test blood | 150 | 1 | 05/27 | | Activ | | Diagnostic (ASCENSIA | glucose 5x daily | | | 12/13 | | e | | MICROFILL) In Vitro | | | | 07 | | | | Strip | | | | | | | + + + +---------+------+------+-------+ | Insulin | administer lantus as | 1 box | 6 | 02/0 | | Activ | | Syringe-Needle U-100 | recommended by | | | 20 | | e | | (BD ULTRAFINE | physician | | | 08 | | | | INSULIN) 1 mL 31 x | | | | | | | | 16" | | | | | | | | Misc.(Non-Drug; | | | | | | | | Combo Route) Syringe | | | | | | | + + + +---------+------+------+-------+ | omeprazole 40 mg | Take 40 mg by mouth | | 0 | | | Activ | | oral capsule,delayed | once daily. | | | | | e | | release(DR/EC) | | | | | | | + + + +---------+------+------+-------+ | ondansetron ODT 8 | Dissolve 8 mg in | | 0 | | | Activ | | mg oral | mouth every twelve | | | | | e | | tablet,disintegratin | hours as needed. | | | | | | | g | | | | | | | + + + +---------+------+------+-------+ | metoclopramide HCl | Take 10 mg by mouth | | 0 | | | Activ | | 10 mg oral tablet | every six hours as | | | | | e | | | needed for | | | | | | | | nausea/vomiting. | | | | | | + + + +---------+------+------+-------+ | glucagon 1 mg/mL | Inject 1 mg into the | 1 each | 0 | 12/0 | | Activ | | injection recon soln | muscle (IM) as | | | 2/20 | | e | | | needed for | | | 15 | | | | | hypoglycemia (CBG | | | | | | | | less than 70 mg/dL). | | | | | | + + + +---------+------+------+-------+ | | Take 1 tablet by | | 0 | | | Activ | | HYDROcodone-acetamin | mouth every four | | | | | e | | ophen 10-325 mg oral | hours as needed. Not | | | | | | | tablet | to exceed 3250 mg | | | | | | | | of acetaminophen | | | | | | | | from all products | | | | | | | | per 24 hour period. | | | | | | + + + +---------+------+------+-------+ | insulin glargine | Inject 40 Units | 3 vial | 11 | 12/2 | | Activ | | (LANTUS) 100 unit/mL | under the skin | | | 1/20 | | e | | subcutaneous | (SUBC) once daily in | | | 15 | | | | solution | the morning. | | | | | | + + + +---------+------+------+-------+ +---+ + | | Additional | | | InformationPatient | | | taking differently: | | | 20 Units | | | subcutaneous EVERY | | | MORNING, Reported on | | | 11/29/2019 9:01 AM | +---+ + + + +---------+----+------+---+-------+ | insulin lispro | Up to 50 units per | 30 mL | 11 | 08/27 | | Activ | | (HUMALOG) 100 | day in divided doses | | | 120 | | e | | unit/mL subcutaneous | as directed | | | 15 | | | | solution | | | | | | | + + +---------+----+------+---+-------+ +---+ + | | Additional | | | InformationPatient | | | taking differently: | | | Up to 50 units per | | | day in divided doses | | | as directed- | | | sliding scale, | | | Reported on 11/29/2019 | | | 9:01 AM | +---+ + + + + +---+------+---+-------+ | promethazine 25 mg | Unwrap and insert 1 | 60 | 1 | 10/1 | | Activ | | rectal | suppository rectally | supposito | | 0/20 | | e | | suppositoryIndicatio | four times daily as | ry | | 19 | | | | ns: Diabetic | needed for | | | | | | | gastroparesis (HCC), | nausea/vomiting. | | | | | | | Severe | | | | | | | | protein-calorie | | | | | | | | malnutrition (HCC) | | | | | | | + + + +---+------+---+-------+ | cefPODOxime 100 | two times daily. | | 0 | 03/0 | | Activ | | mg/5 mL oral | | | | 3/20 | | e | | suspension for | | | | 20 | | | | reconstitution | | | | | | | + + + +---+------+---+-------+ | metoprolol | Take 50 mg by mouth. 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 Start Paxil 30 | + + + + + | Tachycardia | 12/25/2015 | + + + + + | Overview: Last Assessment & Plan: Patient with significant | | tachycardia on exam. Patient is slightly ill in appearance has | | not been taking care of his diabetes. Current calcium channel | | giovana level is not working we will increase level | + + + + + | Hyperglycemia due to type 1 diabetes mellitus | 09/17/2015 | + + + | Hypertension | 08/27/2015 | + + + | Diabetic gastroparesis associated with type 1 diabetes mellitus | 08/27/2015 | + + + | Acute on chronic epigastric pain | 08/26/2015 | + + + | Fissure in skin of foot | 08/26/2015 | + + + | Diabetic ketoacidosis without coma associated with type 1 | 08/25/2015 | | diabetes mellitus | | + + + | Chronic gastritis | 04/11/2014 | + + + + + | Overview: Last Assessment & Plan: Still has chronic pain. | | Has just chosen to deal with this. Long-standing diabetic | | gastroparesis. As stated before patient needs to get his | | diabetes under control for [facility] will contemplate doing nerve | | stimulator implant for gastroparesis | + + + + + | Nausea & vomiting | 03/04/2014 | + + + + + | Overview: Last Assessment & Plan: | | Slightly better with Compazine | + + + + + | Type 1 diabetes mellitus | 11/03/2006 | + + + + + | Overview: ICD10 | + + Resolved Problems + + + + | Problem | Noted | Resolved | | | Date | Date | + + + + | High serum osmolar gap | 08/26/20 | | | | 15 | 5 | + + + + | Metabolic acidosis with respiratory acidosis | 08/26/20 | | | | 15 | 5 | + + + + | Lactic acid acidosis | 08/26/20 | | | | 15 | 5 | + + + + | Dilutional hyponatremia | 08/26/20 | | | | 15 | 5 | + + + + Encounters +--------+ + + + + | Date | Type | Specialty | Care Team | Description | +--------+ + + + + | 12/06/ | Documentati | Gastroenterology | Keshav, | | | 2019 | on | | MD Jerome | | +--------+ + + + + | 11/28/ | Anesthesia | Gastroenterology | Beth Nash, | | | 2020 | Event | | RN | | +--------+ + + + + | 11/28/ | Telephone-S | Pre-operative | | Pre-op evaluation | | 2020 | cheduled | Medicine | | | +--------+ + + + + | 11/28/ | Telephone | Surgery | Neri Steven MD | Other | | 2019 | | | | | +--------+ + + + + | 10/22/ | Telephone | Surgery | Neri Steven MD | Treatment Planning | | 2019 | | | | | +--------+ + + + + from Last 3 Months Family History + + +------+ + | Medical History | Relation | Name | Comments | + + +------+ + | Hypertension | Father | | | + + +------+ + | Stroke | Mother | | | + + +------+ + | Thyroid disease | Mother | | | + + +------+ + + +------+--------+ + | Relation | Name | Status | Comments | + +------+--------+ + | Father | | | | + +------+--------+ + | Mother | | | | + +------+--------+ + Social History + + + +--------+------+ [...] + + + + Plan of Treatment +--------+---------+ + + + | Date | Type | Specialty | Care Team | Description | +--------+---------+ + + + | 01/24/ | Office | Surgery | Neri Steven MD | | | 2020 | Visit | | [address] | | | | | | [place], | | | | | | [place] [address] | | | | | | [phone] | | | | | | | | +--------+---------+ + + + + + + + + | Health Maintenance | Due Date | Last Done | Comments | + + + + + | Influenza (Flu) | | 09/20/2018, 07/02/2015, | | | vaccination (#1) | 9 | 07/21/2010, Additional history | | | | | exists | | + + + + + | Pneumococcal | Completed | 07/02/2015, 05/25/2014, | | | vaccination | | 04/10/2014 | | + + + + + Results Not on filefrom Last 3 Months Insurance + +--------+ +--------+-------+---------+--------+ | Payer | Benefi | Subscriber | Effect | Phone | Address | Type | | | t Plan | ID | edna | | | | | | / | | Dates | | | | | | Group | | | | | | + +--------+ +--------+-------+---------+--------+ | AMBULANCE OPERATIONS SUPERVISOR MEDICAID | AMBULANCE OPERATIONS SUPERVISOR | xxxxxxxx | 04/03/20 | | | Medica | | | [place] | | 18-Pre | | | id | | | [place] | | sent | | | | + +--------+ +--------+-------+---------+--------+ + +--------+ +--------+ + + | Guarantor Name | Accoun | Relation to | Date | Phone | Billing Address | | | t Type | Patient | of | | | | | | | | | | + +--------+ +--------+ + + | Brooks Marquez II | Person | Self | [birth year] | | [address] | | [place] | al/[place] | | 1991 | [id number] | [place] | | | [place] | | | 1 (Home) | [phone] | + +--------+ +--------+ + + Advance Directives + + + + + | Code Status | Date | Date | Comments | | | Activated | Inactivated | | + + + + + | Full Code | 08/26/2015 | 08/27/2015 | | | | 2:10 AM | 9:59 PM | | + + + + +
--- OUTSIDE RECORDS SUMMARY | ~2020-01-14 | XMS | Encounter Summary ---
Demographics + + + | Address | [address] | | | [place] [address] | + + + | Home Phone [...] | Author | [facility] | + + + | Organization | [facility] | + + + | Address | Unknown | + + + | Phone | Unavailable | + + + Support + + + + + | Name | Relationship | Address | Phone | + + + + + | Samantha Ramos | ECON | [address] # | | | | | [place] | | | | | [address] | | + + + + + Care Team Providers + +------+ + | Care Track Inspecting Supervisor Name | Role | Phone | [...] + +--------+ + + + + | New Request | | Gastroenterol | Diagnoses | Giancarlo, | Gas Endo | | | | ogy | Diabetic | Beth Dougherty, | [address] | | | | | gastroparesi | [address] | | | | | s associated | [address] | [place] | | | | | with type [address] | [address] | | | | | diabetes | [place], [place] | floor | | | | | mellitus | [address] | [place], [place] | | | | | ([facility]) | Phone: | [address] | | | | | Procedures | [phone] | Phone: | | | | | CONSULT TO | Fax: | [phone] | | | | | GI PROCEDURE | [phone] | Fax: | | | | | UNIT: EGD | | [phone] | + +--------+ + + + + Encounter Details +--------+ + + + + | Date | Type | Department | Care Team | Description | +--------+ + + + + | 08/16/ | Senior Payroll Manager | Digestive Health | Beth Mondragon, | Diabetic | | 2019 | | Center at [facility] [address] | [address] | gastroparesis | | | | [facility] | [address] | associated with type | | | | for Health and | [place], [place] | 1 diabetes mellitus | | | | Healing, [address] | [address] | ([facility]) (Primary Dx) | | | | [place], [place] | [phone] | | | | | [address] | | | | | | [phone] | | | +--------+ + + + [...] | | | | | [place], | | | | | | [place] [address] | | | | | | [phone] | | | | | | | | +--------+---------+ + + + documented as of this encounter Visit Diagnoses + + | Diagnosis | + + | Diabetic gastroparesis associated with type 1 diabetes mellitus (HCC) - Primary | + + documented in this encounter"
--- OUTSIDE RECORDS SUMMARY | ~2020-01-14 | XMS | Encounter Summary ---
Demographics + + + | Address | [address] | | | [place] [address] | + + + | Home Phone [...] + + + | Author | [facility] | + + + | Organization | [facility] | + + + | Address | Unknown | + + + | Phone | Unavailable | + + + Support + + + + + | Name | Relationship | Address | Phone | + + + + + | Samantha Ramos | ECON | [address] # | | | | | [place] | | | | | [address] | | + + + + + Care Team Providers + +------+ + | Care Sand Caster Apprentice Name | Role | Phone | + [...] Canceled | | Gastroenterol | Diagnoses | Maurizio, | Gas Endo | | | | ogy | Diabetic | MD Neri | [address] | | | | | gastroparesi | [address] | [address] | | | | | s associated | [address] | [place] | | | | | with type [address] | [address] | [address] | | | | | diabetes | [place], [place] | floor | | | | | mellitus | [address] | [place], [place] | | | | | (HCC) | Phone: | [address] | | | | | Procedures | [phone] | Phone: | | | | | CONSULT TO | Fax: | [phone] | | | | | ENDOSCOPY | [phone] | Fax: | | | | | UNIT: EGD | | [phone] | + +--------+ + + + + Reason for Visit + + + | Reason | Comments | + + + | Treatment Planning | | + + + Encounter Details +--------+ + + + + | Date | Type | Department | Care Team | Description | +--------+ + + + + | 10/22/ | Telephone | Digestive Health | Neri Steven MD | Treatment Planning | | 2020 | | Center at [facility] [address] | [address] | | | | | [facility] | [address] [place], | | | | | [facility] and | [place] [address] | | | | | [place] [address] | [phone] | | | | | [place], [place] | | | | | | [address] | | | | | | [phone] | | | +--------+ + + + [...] | | | | | [address] [place], | | | | | | [place] [address] | | | | | | [phone] | | | | | | | | +--------+---------+ + + + documented as of this encounter Visit Diagnoses + + | Diagnosis | + + | Diabetic gastroparesis associated with type 1 diabetes mellitus (HCC) - Primary | + + documented in this encounter"
--- OUTSIDE RECORDS SUMMARY | ~2020-01-14 | XMS | Encounter Summary ---
Demographics + + + | Address | [address] | | | [place] [address] | + + + | Home Phone | | + + + | Preferred Language | Unknown | + + + | Marital Status | Single | + + + | Anabaptism Affiliation | NON | + + + [...] Samantha Ramos | ECON | [address] | | | | | [place], [place] | | | | | [address] | | + + + + + Care Team Providers + +------+ + | Care Ben Day Artist Name | Role | Phone | [...] | | | | | [place], | | | | | | [place] [address] | | | | | | [phone] | | | | | | | | +--------+---------+ + + + documented as of this encounter Visit Diagnoses Not on filedocumented in this encounter"
--- OUTSIDE RECORDS SUMMARY | ~2020-01-14 | XMS | Encounter Summary ---
Demographics + + + | Address | [address] | | | [place] [address] | + + + | Home Phone | | + + + | Preferred Language | Unknown | + + + | Marital Status | Single | + + + | Synagogue Affiliation | NON | + + + [...] | Samantha Ramos | ECON | [address] | | | | | [place] | | | | | [address] | | + + + + + Care Team Providers + +------+ + | Care Wireless Sales Representative Name | Role | Phone | [...] | 2019 | | Center at [facility] [address] | [address] | Appointment | | | | [address] [facility] | [address] [place], | | | | | for Health and | [place] [address] | | | | | [place] [address] | [phone] | | | | | [place], [place] | | | | | | [address] | | | | | | [phone] | | | +--------+ + + + [...] | | | | | [place], | | | | | | [place] [address] | | | | | | [phone] | | | | | | | | +--------+---------+ + + + documented as of this encounter Visit Diagnoses Not on filedocumented in this encounter"
--- OUTSIDE RECORDS SUMMARY | ~2020-01-14 | XMS | Encounter Summary ---
Demographics + + + | Address | [address] | | | [place] [address] | + + + | Home Phone | | + + + | Preferred Language | Unknown | + + + | Marital Status | Single | + + + | Protestant Affiliation | NON | + + + | Race | White | + + + | Ethnic Group | Not or | + + + Author + + + | Author | [facility] | + + + | Organization | [facility] | + + + | Address | Unknown | + + + | Phone | Unavailable | + + + Support + + + + + | Name | Relationship | Address | Phone | + + + + + | Samantha Ramos | ECON | [address] # | | | | | [place] | | | | | [address] | | + + + + + Care Team Providers + +------+ + | Care Seating Upholsterer Name | Role | Phone | + +------+ + | Neri Mojica MD | PCP | | + +------+ + Encounter Details +--------+ + + + + | Date | Type | Department | Care Team | Description | +--------+ + + + + | 08/24/ | Document-Sc | UNKNOWN DEPARTMENT | Other, Faculty | | | 2012 | anned | [address] [facility] | [phone] | | | | | [address] | | | | | | [place], [place] | | | | | | [address] | | | +--------+ + + + [...] | | | | | [place], | | | | | | [place] [address] | | | | | | [phone] | | | | | | | | +--------+---------+ + + + documented as of this encounter Visit Diagnoses Not on filedocumented in this encounter"
--- OUTSIDE RECORDS SUMMARY | ~2020-01-14 | XMS | Encounter Summary ---
Demographics + + + | Address | [address] | | | [place] [address] | + + + | Home Phone [...] | Samantha Ramos | ECON | [address] # | | | | | [place] | | | | | [address] | | + + + + + Care Team Providers + +------+ + | Care Security Tester Name | Role | Phone | [...] | | | with type 1 | [address] | 140 | | | | | diabetes | Phone: | [place], [place] | | | | | mellitus | [phone] | [address] | | | | | ([facility]) Type | Fax: | Phone: | | | | | 1 diabetes | [phone] | [phone] | | | | | mellitus | | Fax: | | | | | with | | [phone] | | | | | hyperglycemi | | | | | | | a ([facility]) | | | | | | | [...] | | | | | hyperglycemi | [facility], [place] | PPV05 | | | | | a ([facility]) | [address] | Physician's | | | | | Procedures | Phone: | Zeniachadwick Amarilis | | | | | CONSULT TO | [phone] | 140 | | | | | ADULT | Fax: | [place], [place] | | | | | DIABETES - | [phone] | [phone] | | | | | EDUCATION | | Phone: | | | | | (DIABETES | | [phone] | | | | | SELF-MANAGEM | | Fax: | | | | | ENT) | | [phone] | +--------+--------+ + + + + Reason [...] + + | 08/25/ | Hospital | [facility] [address] | | | 2015 - | Encounter | Nathalia Bernardo MD [address] | | | | | 14[address] [facility] | [address] | | | 08/27/ | | [place], [place] | [place], [place] | | | 2014 | | [address] | [address] | | | | | [phone] | [phone] | | | | | | | | | | | | Harris Martínez MD | | | | | | Chrissie | | | | | | [facility] | | | | | | Center [address] | | | | | | [address] [place], | | | | | | [place] [address] | | | | | | [phone] | | | | | | | | | | | | Jeff Diggs, | | | | | | ,MP[facility] [address] | | | | | | [address] | | | | | | [place], [place] | | | | | | [address] | | | | | | [phone] | | | | | | | | | | | | Eunice Parada, | | | | | | [address] | | | | | | [address] | | | | | | [place], [place] | | | | | | [address] | | | | | | [phone] | | | | | | | [...] Procedures 1. Gastric emptying study Consulting Services: Professor Of Chemistry Reason For Admission: Diabetic ketoacidosis. Hyperglycemia, acute [...] endocrinolog y and diabetes education here at [facility] which were completed. He was counseled on how to rotat e sites for his insulin injections. - Continue glargine 15 units daily + lispro 1 unit per 15 g carb - Outpatient referral to endocrinology and staff development educator - Will need outpatient follow up [...] post-hospitalization follow-up; Appt at 740am Contact information [facility] [address] [facility] [place] [address] Follow up with [facility] at [facility] 1st Floor. Specialty: Endocrinology, Diabetes & Metabolism Why: To establish care; follow up on referral to endocrinology if you do not hear back fr om them in 1 week Contact information [address] [facility] Physicians [place] [address] [facility] [address] Additional information: [facility], 1st floor [address] [place], [place] [id number] The [facility] is the building just past [facility] for [facility]. Turn right immediately past the Pavilion. The entrance to [facility] will be on your right just beyond the main doors to the Pavili. An elevator in e parking garage will take patients directly to the floor of the clinic. The [facility] is located on the 1st floor. Please check in at the front end web designer. M aps and directions can be found at: [email or web address] Other Discharge Orders and Instructions It was a pleasure taking care of you while you were here at [facility] 1) Take all your medications as prescribed especially your insulin and blood pressure medic ations 2) Follow up with your PCP Dr. Pascual on 09/02 at 740am. 3) Make sure to rotate location of where you inject your insulins and keep close track of y our blood sugars 4) We will make referral to [facility] endocrinology but please follow up with us [...] nearest ER for evaluation. Referrals placed to [facility] endocrinology and staff development educator This note was routed to patient's PCP in [place]. EUNICE PARADA MD Pager - [phone] Stoneworking Belt Sanderjob developer for deaf adults Clinical and Medicine [facility] Services [facility] I spent 45 minutes coordinating care for this patient's discharge, of which 30 minutes were spent eumg-vj-ilhy with the patient as well as with [...] about new lisinopril. Diabetes education provided by prosthodontist/educator RNLiz. Pt reports he has all DM [...] is stating desire to establish with an Signal Intelligence Analyst. 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 Pt uses insulin syringe and [...] home. States willingness to come back to [facility] for endocrinology care, lives in [facility]. Hypoglycemia: reports 1-2 occurrences per week, [...] steven. Pt expresses interest in establishing with sales floor team leader here at [facility], and is willing to review/discuss further insulin pumps with endocrinology team. Informed pt that insulin pump does not take away the work (still need to check BG levels an d count carbs and give bolus doses) Recommendations 1. Encourage pt to attend support group 2. Encourage improving DM self management and care 3. Refer to [facility] diabetes center for endocrinology care 4. Refer to staff development educator in diabetes center for updating carb [...] LD, RN, CDE Inpatient Diabetes Education Pager: [phone] Eunice Rich MD - 08/26/2015 9:03 AM PST Internal Medicine Clinical Hospitalist Service Progress Note ID/CC: Brooks Marquez (Keith) is a 24 year old man with poorly controlled type 1 diabetes trent litus (HgbA1c in 06/2015 of 12.5%) here with diabetic ketoacidosis in setting of impaired in sulin absorption due to subcutaneous scar tissue with concurrent lactic acidosis (now [facility] ed), no clear infectious etiology for trigger [...] full code EUNICE PARADA MD Pager - [phone] Stoneworking Belt Sanderjob developer for deaf adults Clinical and Medicine Teaching Hospitalist Services [facility] I spent 40 minutes lkye-dz-[id number] with the patient as well as with [...] | | | | | [address] [place], | | | | | | [place] [address] | | | | | | [phone] | | | | | | | [...] MARQUAM | [address] | [place], [place] | | | TANJA HAY OF CARE | [facility] | [address] | | | TESTS | | | [...] VERDE | [address] | [place], [place] | | | SATNAM POINT OF CARE | [address] | [address] | | | TESTS | | | [...] MARQUAM | [address] | [place], [place] | | | SATNAM POINT OF CARE | [address] | [address] | | | TESTS | | | [...] | | | LABORATORY | | | CONGOLESE | | | SERVICES, | | | [...] | + + + + + | [facility] | [address] | [place] [address] | | | SERVICES, CORE | ZENA [...] AMMON | [address] | [place], [place] | | | TANJA HAY OF ANNA | [facility] | [address] | | | TESTS | | | | + + + + + CAPILLARY BLOOD GLUCOSE (NO CHG), POC (08/27/2015 7:24 AM PST) + +-------+ + + + | Component | Value | Ref Range | Performed | Pathologist | | | | | At | Signature | + +-------+ + + + | BLOOD | 73 | 60 - 99 mg/dL | [facility] - | | | GLUCOSE, | | [...] AMMON | [address] | [place], [place] | | | SATNAM POINT OF CARE | [address] | [address] | | | TESTS | | | [...] VERDE | [address] | [place], [place] | | | TANJA HAY OF ANNA | [facility] | [address] | | | TESTS | | | [...] AVELINAAM | [address] | [place], [place] | | | TANJA HAY OF ANNA | [facility] | [address] | | | TESTS | | | [...] (H) | 60 - 99 mg/dL | [facility] - | | | GLUCOSE, | | [...] MARQUAM | [address] | [place], [place] | | | TANJA HAY OF [facility] | [address] | [address] | | | TESTS | | | [...] VERDE | [address] | [place], [place] | | | TANJA HAY OF CARE | [facility] | [address] | | | TESTS | | | [...] MARRADHAAM | [address] | [place], [place] | | | TANJA HAY OF ANNA | [facility] | [address] | | | TESTS | | | [...] (H) | 60 - 99 mg/dL | [facility] - | | | GLUCOSE, | | [...] JACKELYNQUAM | [address] | [place], [place] | | | TANJA HAY OF [facility] | [address] | [address] | | | TESTS | | | [...] VERDE | [address] | [place], [place] | | | TANJA HAY OF ANNA | [facility] | [address] | | | TESTS | | | [...] MARRADHAAM | [address] | [place], [place] | | | TANJA HAY OF CARE | [facility] | [address] | | | TESTS | | | [...] (H) | 60 - 99 mg/dL | [facility] - | | | GLUCOSE, | | [...] + + + | VERITO VERDE | [address] | [place], [place] | | | TANJA HAY OF [facility] | [address] | [address] | | | TESTS | | | [...] | | | LABORATORY | | | CONGOLESE | | | SERVICES, | | | [...] | + + + + + | [facility] LAB[facility]ORY | [address] | [place] [address] | | | SERVICES, CORE | ZENA [...] (H) | 60 - 99 mg/dL | [facility] - | | | GLUCOSE, | | [...] VERDE | [address] | [place], [place] | | | TANJA HAY OF [facility] | [address] | [address] | | | TESTS | | | [...] MARQUAM | [address] | [place], [place] | | | TANJA HAY OF CARE | [address] | [address] | | | TESTS | | | [...] MARQUAM | [address] | [place], [place] | | | SATNAM POINT OF CARE | [address] | [address] | | | TESTS | | | [...] VERDE | [address] | [place], [place] | | | TANJA HAY OF CARE | [address] | [address] | | | TESTS | | | [...] MARQUAM | [address] | [place], [place] | | | TANJA HAY OF CARE | [address] | [address] | | | TESTS | | | [...] MARQUAM | [address] | [place], [place] | | | SATNAM POINT OF CARE | [address] | [address] | | | TESTS | | | [...] VERDE | [address] | [place], [place] | | | TANJA HAY OF CARE | [address] | [address] | | | TESTS | | | [...] MARQUAM | [address] | [place], [place] | | | TANJA HAY OF CARE | [address] | [address] | | | TESTS | | | [...] | | | LABORATORY | | | CONGOLESE | | | SERVICES, | | | [...] | + + + + + | [facility] | [address] [facility] [address] | [place] [address] | | | SERVICES, CORE | [address] | | | + + + [...] | + + + + + | [facility] | [address] [facility] [address] | [place] [address] | | | SERVICES, CORE | ZENA [...] MARQUAM | [address] | [place], [place] | | | TANJA HAY OF CARE | [address] | [address] | | | TESTS | | | [...] AMMON | [address] | [place], [place] | | | TANJA HAY OF CARE | [facility] | [address] | | | TESTS | | | [...] VERDE | [address] | [place], [place] | | | TANJA HAY OF CARE | [facility] | [address] | | | TESTS | | | [...] AMMON | [address] | [place], [place] | | | TANJA HAY OF ANNA | [address] | [address] | | | TESTS | | | [...] activity: 50-100 | | | mg/dLDepression of PROJECT ARCHITECT: >100 mg/dLFatalities reported: >400 mg/dL | | | Acetone, Methanol and Isopropanol:<5 mg/dL: Reported as Not | | | Detected<10 mg/dL but >5 mg/dL: Reported as <10 mg/dL>10 mg/dL: | | | Reported as measured numeric value Test performed by: [facility] | | [facility] [address] [place] [address] | | |<5 mg/dL: Reported as Not Detected | | |<10 mg/dL but >5 mg/dL: Reported as <10 mg/dL | | |>10 mg/dL: Reported as measured numeric value | | | | | |Test performed by: | | |[facility] | | |[address] | | |[place] [address] | | + + + + + [...] (H) | 60 - 99 mg/dL | [facility] - | | | GLUCOSE, | | [...] - AVELINAAM | [address] | [place], [place] | | | SATNAM POINT OF CARE | [address] | [address] | | | TESTS | | | [...] | + + + + + | [facility] | [address] | [place] [address] | | | SERVICES, CORE | ZENA [...] | | | LABORATORY | | | CONGOLESE | | | SERVICES, | | | [...] | + + + + + | [facility] | [address] [facility] | [place] [address] | | | ZOEY DODD | ZENA [...] | + + + + + | [facility] | [address] | [place] [address] | | | SERVICES, ZOEY | ZENA [...] MARQUAM | [address] | [place], [place] | | | TANJA HAY OF CARE | [address] | [address] | | | TESTS | | | [...] AVELINAAM | [address] | [place], [place] | | | SATNAM POINT OF CARE | [address] | [address] | | | TESTS | | | [...] (H) | 60 - 99 mg/dL | [facility] - | | | GLUCOSE, | | [...] VERDE | [address] | [place], [place] | | | TANJA HAY OF ANNA | [address] | [address] | | | TESTS | | | [...] MARQUAM | [address] | [place], [place] | | | SATNAM POINT OF CARE | [address] | [address] | | | TESTS | | | [...] - AMMON | [address] | [place], [place] | | | SATNAM POINT OF CARE | [address] | [address] | | | TESTS | | | [...] [facility] | [address] | [place] [address] | | | SERVICES, CORE | [address] [...] [facility] | [address] | [place] [address] | | | SERVICES, CORE | [address] [...] | + + + + + | [facility] | [address] | [place] [address] | | | SERVICES, CORE | ZENA [...] 128 (L) | 134 - 143 | [facility] - | | | | | mmol/L | AMMON | | | | | | TANJA HAY | | | | | | OF CARE | | | | | | TESTS | | + + + + + + | POTASSIUM, | 4.8 | 3.4 - 5.0 | [facility] - | | | POC | | [...] AMMON | [address] | [place], [place] | | | TANJA HAY OF ANNA | [address] | [address] | | | TESTS | | | [...] VERDE | [address] | [place], [place] | | | TANJA HAY OF ANNA | [facility] | [address] | | | TESTS | | | [...] DEPT OF | [address] | [place], [place] | | | CARDIOLOGY | [address] | [address] | | + + + + + [...] [facility] | [address] | [place] [address] | | | ZOEY DODD | ZENA [...] | + + + + + | [facility] | [address] | [facility] [address] | | | ZOEY DODD | ZENA [...] [facility] | [address] | [place] [address] | | | SERVICES, CORE | ZENA [...] | + + + + + | [facility] | [address] [facility] [address] | [place] [address] | | | SERVICES, | [address] [...] | | | LABORATORY | | | CONGOLESE | | | SERVICES, | | | [...] [facility] | [address] | [place] [address] | | | SERVICES, CORE | [address] [...] | + + + + + | [facility] | [address] | [place] [address] | | | SERVICES, CORE | ZENA [...] | + + + + + | [facility] | [address] | [place] [address] | | | SERVICES, CORE | ZENA [...] [facility] | [address] | [place] [address] | | | SERVICES, CORE | [address] [...] VERDE | [address] | [place], [place] | | | SATNAM POINT OF [facility] | [address] | [address] | | | TESTS | | | | + + + + + ED INFORMATION EXCHANGE (08/25/2015 9:25 PM PST) + + + + + + | Component | Value | Ref Range | Performed | Pathologist | | | | | At | Signature | + + + + + + | [facility] | [id number] | | COLLECTIVE | | | | [id number] | | MEDICAL | | | | [...] | ---- | | | 08/25/2015 21:25 [facility] | | | Emergency [address]. Abdominal Pain 08/24/2015 16:44 | | | [facility] Emergency -Abd Pain | | | | | | -Epigastric pain | | | | | | -Cyclical vomiting, intractable | | | | | | -Hyperglycemia, unspecified | | | | | | -Abdominal Pain 08/18/2015 | | | 17:23 [facility] Emergency | | | -Gastroparesis [...] -Abdominal Pain 08/09/2015 12:53 | | | [facility] Emergency | | | -Abdominal Pain | | | | | | -Generalized abdominal pain | | | | | | -abd pain | | | -Vomiting | | | | | | -Cyclical vomiting, | | | intractable 08/01/2015 20:43 [facility] | | | Hospital Emergency -Cyclical vomiting, intractable | | | | | | -vomiting abd pain | | | | | | -Hyperglycemia | | | | | | -Abdominal Pain | | | | | | -Generalized abdominal pain | | | | | | -Gastroparesis 07/26/2015 16:13 [facility] | | | [facility] Emergency -vomiting, pain, diabetic | | | | | | -Cyclical vomiting, not | | | intractable | | | -Vomiting | | | 05/30/2015 17:01 [facility] | | | Emergency -Abdominal Pain | | | | | | -Finger Injury | | | -abd | | | pain 05/29/2015 21:54 [facility] | | | Emergency -Gangrene [...] Visits | | | Location ------ --------- [address] [place] [address] | | | [facility] | | | [place] [address] [place] [address] | | | [facility] 14 Total Note: | | | Visits indicate total known visits. | | | | | | --- | | + + + + + + + + | Performing | Address | City/State/Zipcode | Phone Number | | Organization | | | | + + + + + | [employer] | [address] | [place], [place] | [phone] | | [employer] | [address] | [address] | | + + + + + [...]
--- OUTSIDE RECORDS SUMMARY | ~2020-01-14 | XMS | Encounter Summary ---
Demographics + + + | Address | [address] | | | [place] [address] | + + + | Home Phone | | + + + | Preferred Language | Unknown | + + + | Marital Status | Single | + + + | Mu-Ism Affiliation | NON | + + + [...] Samantha Ramos | ECON | [address] # | | | | | [place] | | | | | [address] | | + + + + + Care Team Providers + +------+ + | Care Upscale Security Officer Name | Role | Phone | + +------+ + | Neri Mojica MD | PCP | | + +------+ + Encounter Details +--------+ + + + + | Date | Type | Department | Care Team | Description | +--------+ + + + + | 07/16/ | Documentati | Orthopaedics at | Neri Mcgarry, | | | 2005 | on | [address] | [address] | | | | | [address] | [address] | | | | | Mailcode: PV430 | [facility] [place] | | | | | [facility] | [address] | | | | | [place], [place] | [phone] | | | | | [address] | | | | | | [phone] | | | +--------+ + + + [...] | | | | | [address] [place], | | | | | | [place] [address] | | | | | | [phone] | | | | | | | | +--------+---------+ + + + documented as of this encounter Visit Diagnoses Not on filedocumented in this encounter"
--- OUTSIDE RECORDS SUMMARY | ~2020-01-14 | XMS | Encounter Summary ---
Demographics + + + | Address | [address] | | | [place] [address] | + + + | Home Phone | | + + + | Preferred Language | Unknown | + + + | Marital Status | Single | + + + | Tenriism Affiliation | Unknown | + + + | Race | Unknown | + + + | Ethnic Group | Unknown | + + + Author + + + | Author | [facility] | | | and [place] | + + + | Organization | [facility] | | [...] [place] | | | | | [address] | | + + + + + Care Team Providers + +------+ + | Care Television Cabinet Finisher Name | Role | Phone | + +------+ + | Erich Yates | PCP | | + +------+ + Encounter Details +--------+ + + + + | Date | Type | Department | Care Team | Description | +--------+ + + + + | 01/11/ | Orders Only | [facility] | Winston Whitman MD | | | 2019 | | NEPRHOLOGY [place] | [address] | | | | | [address] | [address] [place], [place] | | | | | [address] [place], [place] | [address] | | | | | [address] | | | | | | [phone] | | | +--------+ + + + [...] + + + | Red Blood | 3.22 (A) | 4.3 - 5.7 10 | EXTERNAL | | | Cells | | | LAB | | | Counted | | | | | + + + + + + | Hemoglobin | 9.7 (A) | 13.5 - 18.0 [...]
--- OUTSIDE RECORDS SUMMARY | ~2020-01-14 | XMS | Encounter Summary ---
Demographics + + + | Address | [address] | | | [place] [address] | + + + | Home Phone [...] Author + + + | Author | [facility] | + + + | Organization | [facility] | + + + | Address | Unknown | + + + | Phone | Unavailable | + + + Support + + + + + | Name | Relationship | Address | Phone | + + + + + | Samantha Ramos | ECON | [address] # | | | | | [place] | | | | | [address] | | + + + + + Care Team Providers + +------+ + | Care Swatch Clerk Name | Role | Phone | [...] | | | | [facility] | [place], [place] | | | | | [address] | [address] | | | | | Tika | [phone] | | | | | [place], [place] | | | | | | [address] | | | | | | [phone] | | | +--------+ + + + [...] | 01/24/ | Office | Surgery | eNri Steven MD | | | 2019 | Visit | | [address] | | | | | | [place], | | | | | | [place] [address] | | | | | | [phone] | | | | | | | [...] + + + | [facility] | [address] | [place], [place] | | | SATNAM POINT OF CARE | [address] | [address] | | | TESTS | | | | + + + + + | [facility] | [address] | [place], [place] | | | TESTS | [facility] | [address] | | + + + + + documented in this encounter Visit Diagnoses Not on filedocumented in this encounter"
--- OUTSIDE RECORDS SUMMARY | ~2020-01-14 | XMS | Encounter Summary ---
Demographics + + + | Address | [address] | | | [place] [address] | + + + | Home Phone | | + + + | Preferred Language | Unknown | + + + | Marital Status | Single | + + + | Roman Catholic Affiliation | Unknown | + + + [...] [place] | | | | | [address] | | + + + + + Care Team Providers + +------+ + | Care Hip Hop Dance Instructor Name | Role | Phone | + +------+ + | Erich Yates | PCP | | + +------+ + Encounter Details +--------+ + + + + | Date | Type | Department | Care Team | Description | +--------+ + + + + | 06/20/ | Orders Only | [facility] | Winston Whitman MD | CKD (chronic kidney | | 2019 | | NEPHROLOGY [place] | [address] | disease), stage III | | | | [address] [place] | [address] [place], [place] | ([facility]) (Primary Dx) | | | | [address] [facility] [place] | [address] | | | | | [address] | | | | | | [phone] | | | +--------+ + + + [...]
--- OUTSIDE RECORDS SUMMARY | ~2020-01-14 | XMS | Encounter Summary ---
Demographics + + + | Address | [address] | | | [place] [address] | + + + | Home Phone | | + + + | Preferred Language | Unknown | + + + | Marital Status | Single | + + + | Pentecostal Affiliation | Unknown | + + + | Race | Unknown | + + + | Ethnic Group | Unknown | + + + Author + + + | Author | [facility] | | | and [place] | + + + | Organization | [facility] | | | [...] [place] | | | | | [address] | | + + + + + Care Team Providers + +------+ + | Care Technical System Analyst Name | Role | Phone | [...] | | | | | complication | [place], | [place] [address] | | | | | s ([facility]) | [place] [address] | Phone: | | | | | Unspecified | Phone: | [phone] | | | | | abdominal | [phone] | Fax: | | | | | pain | Fax: | [phone] | | | | | Functional | [phone] | | | | | | intestinal [...] | [address] | [place], [address] | (Primary Dx); Weight | | | | [address] [place], [place] | [place], [place] | loss; Malnutrition, | | | | [address] | [address] | unspecified type | | | | [phone] | | ([facility]); 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 Patient significantly malnourished due to nausea and vomiting. CC: VIKI Aannd This note was dictated using voice recognition [...]
--- OUTSIDE RECORDS SUMMARY | ~2020-01-14 | XMS | Encounter Summary ---
Demographics + + + | Address | [address] | | | [place] [address] | + + + | Home Phone [...] Author + + + | Author | [facility] | + + + | Organization | [facility] | + + + | Address | Unknown | + + + | Phone | Unavailable | + + + Support + + + + + | Name | Relationship | Address | Phone | + + + + + | Samantha Ramos | ECON | [address] # | | | | | [place] | | | | | [address] | | + + + + + Care Team Providers + +------+ + | Care Improvement Spec Name | Role | Phone | + [...] | | 2019 | | Center at [facility] [address] | [address] | | | | | [address] [facility] | [address] [place], | | | | | [facility] and | [place] [address] | | | | | [facility] 2 | [phone] | | | | | [place], [place] | | | | | | [address] | | | | | | [phone] | | | +--------+ + + + [...] | | | | | [address] [place], | | | | | | [place] [address] | | | | | | [phone] | | | | | | | | +--------+---------+ + + + documented as of this encounter Visit Diagnoses Not on filedocumented in this encounter"
--- OUTSIDE RECORDS SUMMARY | ~2020-01-14 | XMS | Encounter Summary ---
Demographics + + + | Address | [address] | | | [place] [address] | + + + | Home Phone | | + + + | Preferred Language | Unknown | + + + | Marital Status | Single | + + + | Jewish Affiliation | Unknown | + + + | Race | Unknown | + + + | Ethnic Group | Unknown | + + + Author + + + | Author | [facility] | | | and [place] | + + + | Organization | [facility] | | [...] [place] | | | | | [address] | | + + + + + Care Team Providers + +------+ + | Care Tech Intern Name | Role | Phone | + [...] | 03/22/ | Telephone | [facility] [place] | [facility], | Referral | | 2019 | | GASTROENTEROLOGY | DANA Perry [address] | | | | | [address] | [place], [address] | | | | | [address] [place], [place] | [place], [place] | | | | | [address] | [address] | | | | | [phone] | | | +--------+ + + + [...]
--- OUTSIDE RECORDS SUMMARY | ~2020-01-14 | XMS | Encounter Summary ---
Demographics + + + | Address | [address] | | | [place] [address] | + + + | Home Phone | | + + + | Preferred Language | Unknown | + + + | Marital Status | Single | + + + | Judaism Affiliation | Unknown | + + + | Race | Unknown | + + + | Ethnic Group | Unknown | + + + Author + + + | Author | [facility] | | | and [place] | + + + | Organization | [facility] | | [...] [place] | | | | | [address] | | + + + + + Care Team Providers + +------+ + | Care Rail Operator Name | Role | Phone [...] | | | | | [address] | [place] | | | | | [place] | [address] | | | | | [address] | | | | | | [phone] | | | +--------+ + + + [...] +----+---+ + + | | 2 | [place] | | | | 0 | 43-degrees | | | | 4 | | | | | 8 | | | +----+---+ + + | | 2 | First | | | | 0 | [address] | | | | 5 | | | | | 4 | | | +----+---+ + + | | 2 | [place] off | | | | 1 | [...] | | | Electronically Signed by: Tereso Dillon MD | | | ESig date/time: 09/19/2018 20:55 | | | | | + + + + + | Procedure Note | + + | Tereso Dillon MD - 09/19/2018 8:55 PM PST Anesthesia Airway Fxoymugwn55/25/2018 | | 20:40Preprocedure check: patient identified, suction, [...]
--- OUTSIDE RECORDS SUMMARY | ~2020-01-14 | XMS | Encounter Summary ---
Demographics + + + | Address | [address] | | | [place] [address] | + + + | Home Phone | | + + + | Preferred Language | Unknown | + + + | Marital Status | Single | + + + | Yazidism Affiliation | NON | + + + [...] Samantha Ramos | ECON | [address] | | | | | [place], [place] | | | | | [address] | | + + + + + Care Team Providers + +------+ + | Care Gun Striper Name | Role | Phone | + [...] as of this encounter Discharge Summaries Interface, Marketing Consultant In - 04/08/2006 3:[address] [address] [facility] MEDICAL SUMMARY OF HOSPITALIZATION Med Rec No: [...] initially presented to the emergency department in [place] with four to five days of flu-like [...] insulin drip. He was transferred to the [facility] Pediatric Intensive Care Unit. HOSPITAL COURSE: The patient was admitted to the PICU and was continued on insulin drip and IV fluids. On hospital day two, CBG with pH of 7.2, bicarbonate 14, which then increased to 21. The patient was switched to subcutaneous insulin and transferred to the general weinstein. The patient and family received diabetes education from the endocrinology team. A export freight manager also worked closely with the family in educating on the [place] [employer] diets. On the day of [...] Lindsey M.D. Tereso Morocho M.D. TC:[id number] cc: [id number] signed by Interface, Marketing Consultant In at 04/08/2006 3:07 [facility] this [facility] Plan of Treatment +--------+---------+ + + + | Date | Type | Specialty | Care Team | Description | +--------+---------+ + + + | 01/24/ | Office | Surgery | Neri Steven MD | | | 2020 | Visit | | [address] | | | | | | [address] [place], | | | | | | [place] [address] | | | | | | [phone] | | | | | | | | +--------+---------+ + + + documented as of this encounter Visit Diagnoses Not on filedocumented in this encounter"
--- OUTSIDE RECORDS SUMMARY | ~2020-01-14 | XMS | Encounter Summary ---
Demographics + + + | Address | [address] | | | [place] [address] | + + + | Home Phone [...] Samantha Ramos | ECON | [address] | | | | | [place], [place] | | | | | [address] | | + + + + + Care Team Providers + +------+ + | Care Cut Out Press Operator Name | Role | Phone | [...] as of this encounter Progress Notes Interface, Workers Compensation Coordinator In - 04/25/2005 12:43 AM [facility] [id number] [facility] Date: 09/30/2004 Clinic: [facility] Subjective: Alin is an almost 14-year-old young boy with type 1 diabetes. The family is new to clinic, here to establish care for his ongoing diabetes management. Alin is usually followed by his primary care doctor, Dr. Mojica in [place]. The family does have several questions and are quite interactive in today's visit. Previous Diabetes Education: Alin was diagnosed with type 1 diabetes on April 2002, at that time, he was admitted to the hospital in [place], [place] where the family did receive initial [...] the football practice. Meal Planning: The pediatric psychiatrist Shannon Early did meet with the family [...] also involved in football. 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 I discussed the importance of [...] the family's first visit here to the [facility]. The family is interactive at [...] Diabetes Team. Estefany Hathaway R.N. / CONTRERAS [id number] / [id number] / [id number] / [id number] CDRCP Electronically signed by Estefany Hathaway 10-05-2004 [...] | | | | | [address] [place], | | | | | | [place] [address] | | | | | | [phone] | | | | | | | | +--------+---------+ + + + documented as of this encounter Visit Diagnoses Not on filedocumented in this encounter
--- OUTSIDE RECORDS SUMMARY | ~2020-01-14 | XMS | Encounter Summary ---
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
--- OUTSIDE RECORDS SUMMARY | ~2020-01-14 | XMS | Encounter Summary ---
Demographics + + + | Address | [address] | | | [place] [address] | + + + | Home Phone | | + + + | Preferred Language | Unknown | + + + | Marital Status | Single | + + + | Judaism Affiliation | NON | + + + | Race | White | + + + | Ethnic Group | Not or | + + + Author + + + | Author | [facility] | + + + | Organization | [facility] | + + + | Address | Unknown | + + + | Phone | Unavailable | + + + Support + + + + + | Name | Relationship | Address | Phone | + + + + + | Samantha Ramos | ECON | [address] # | | | | | [place] | | | | | [address] | | + + + + + Care Team Providers + +------+ + | Care Java Sql Developer Name | Role | Phone | [...] | | 2019 | | Center at [facility] [address] | [address] | Review | | | | [address] [facility] | [address] [place], [place] | | | | | for Health and | [address] | | | | | [facility] 2 | [phone] | | | | | [place], [place] | | | | | | [address] | | | | | | [phone] | | | +--------+ + + + [...] | | | | | [address] [place], | | | | | | [place] [address] | | | | | | [phone] | | | | | | | | +--------+---------+ + + + documented as of this encounter Visit Diagnoses Not on filedocumented in this encounter"
--- OUTSIDE RECORDS SUMMARY | ~2020-01-14 | XMS | Encounter Summary ---
Demographics + + + | Address | [address] | | | [place] [address] | + + + | Home Phone [...] + | Author | [facility] | | | and [place] | + + + | Organization | [facility] | | [...] [place] | | | | | [address] | | + + + + + Care Team Providers + +------+ + | Care Clerical Office Worker Name | Role | Phone | + +------+ + | Erich Yates | PCP | | + +------+ + Encounter Details +--------+ + + + + | Date | Type | Department | Care Team | Description | +--------+ + + + + | 01/11/ | Orders Only | [facility] | Winston Whitman MD | | | 2019 | | NEPRHOLOGY [place] | [address] | | | | | [address] | [address] [place], [place] | | | | | [address] [place], [place] | [address] | | | | | [address] | | | | | | [phone] | | | +--------+ + + + [...]
--- OUTSIDE RECORDS SUMMARY | ~2020-01-14 | XMS | Encounter Summary ---
Demographics + + + | Address | [address] | | | [place] [address] | + + + | Home Phone [...] [place] | | | | | [address] | | + + + + + Care Team Providers + +------+ + | Care Academic Coordinator Name | Role | Phone | + +------+ + | Erich Yates | PCP | | + +------+ + Encounter Details +--------+ + + + + | Date | Type | Department | Care Team | Description | +--------+ + + + + | 03/16/ | Orders Only | [facility] | Winston Whitman MD | | | 2019 | | NEPHROLOGY [place] | [address] [place] | | | | | [address] [place] | [address] [place], [place] | | | | | [address] [place], [place] | [address] | | | | | [address] | | | | | | [phone] | | | +--------+ + + + [...] | | | LAB | | | [place] CIT[place] | | | | | + + [...]
--- OUTSIDE RECORDS SUMMARY | ~2020-01-14 | XMS | Encounter Summary ---
Demographics + + + | Address | [address] | | | [place] [address] | + + + | Home Phone | | + + + | Preferred Language | Unknown | + + + | Marital Status | Single | + + + | Alevism Affiliation | Unknown | + + + | Race | Unknown | + + + | Ethnic Group | Unknown | + + + Author + + + | Author | [facility] | | | and [place] | + + + | Organization | [facility] | | [...] [id number] | | | | | [address] | | + + + + + Care Team Providers + +------+ + | Care Golf [employer] Manager Name | Role | Phone | [...] Specialty | Home Health | Diagnoses | [place], | Prov Hh | | | Services | Services | Diabetic | Willard | [place] | | | Required | | ulcer of | MD Bernadette | [address] | | | | | left foot | [address] | [address] [place] | | | | | associated | [place] | [place], [place] | | | | | with type 1 | [place] | [address] | | | | | diabetes | [address] | Phone: | | | | | mellitus, | Phone: | [phone] | | | | | unspecified | [phone] | Fax: | | | | | part of | Fax: | [phone] | | | | | foot, | [phone] | | | | | | unspecified | | | | | | | ulcer stage | | | | | | | ([facility]) | | | | | | | Generalized | | | | | | | weakness | | | +--------+ + + + + + Reason for Visit Auth/Cert +--------+--------+ + + + + | Status | Reason | Specialty | Diagnoses / | Referred By | Referred To | | | | | Procedures | Contact | Contact | +--------+--------+ + + + + | | | | Diagnoses | | | | | | | DKA | | | +--------+--------+ + + + + Encounter Details +--------+ + + + + | Date | Type | Department | Care Team | Description | +--------+ + + + + | 01/05/ | Hospital | [facility] | Erika Allison MD | Generalized weakness | | 2020 - | Encounter | [facility] | [address] | (Primary Dx); | | | | [address] [place] | [place] | Diabetic | | 01/09/ | | [place] [address] | [phone] | ketoacidosis without | | 2019 | | [phone] | | coma associated | | | | | Willard Aldrich | with type 1 diabetes | | | | | MD Bernadette [address] | mellitus (HCC); | | | | | [address] [place] | Acute renal failure | | | | | [place] [address] | superimposed on | | | | | [phone] | stage 3 chronic | | | | | | kidney disease, | | | | | | unspecified acute | | | | | | renal failure type | | | | | | ([facility]); Diabetic | | | | | | gastroparesis ([facility]); | | | | | | 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 | | | | | | with type 1 | | | | | | diabetes mellitus, | | | | | | unspecified part of | | | | | | foot, unspecified | | | | | | ulcer stage ([facility]) | +--------+ + + + [...] + + + | Blood Pressure | 144/108 | 01/10/2020 7:38 AM | | | | | PDT | | + + + + + | Pulse | 93 | 01/10/2020 7:38 AM | | | | | PDT | | + + + + + | Temperature | 36.3 C (97.4 F) | 01/10/2020 7:38 AM | | | | | PDT | | + + + + + | Respiratory Rate | 16 | 01/10/2020 7:38 AM | | | | | PDT | | + + + + + | Oxygen Saturation | 100% | 01/10/2020 7:38 AM | | | | | PDT | | + + + + + | Inhaled Oxygen | - | - | | | Concentration | | | | + + + + + | Weight | 79 kg (174 lb 2.6 | 01/09/2020 10:10 PM | | | | oz) | PDT | | + + + + + | Height | - | - | | + + + + + | Body Mass Index | 21.77 | 06/09/2019 8:20 PM | | | [...] documented as of this encounter Discharge Summaries Willard Aldrich MD - 01/10/2020 10:55 AM PDTFormatting of this note might be differen t from the original. [place] HOSPITALIST DISCHARGE SUMMARY Pt. Name/Age/: Brooks Marquez 29 y.o. 1990 Date of Admission: 01/06/2020 Date of Discharge: 01/10/2020 Admitting Physician: Erika Allison MD Primary Care Provider: Emmanuel Saavedra Discharging Physician: Willard Aldrich MD DISCHARGE DIAGNOSES: Active Hospital Problems Diagnosis Acute renal failure superimposed on stage 3 chronic kidney disease Diabetic ketoacidosis without coma associated with type 1 diabetes mellitus Resolved Hospital Problems No resolved problems to display. DISCHARGE MEDICATIONS: Discharge Medications New Medications Details amoxicillin-clavulanate 875-125 mg per tablet Take 1 tablet by mouth 2 times daily for 3 days. aka: AUGMENTIN Changed Medications Details insulin glargine 100 units/mL injection (pen) Inject 6 Units under the skin nightly. What changed: how much to take aka: LANTUS SOLOSTAR Unchanged Medications Details GLUCAGON EMERGENCY 1 MG injection Generic drug: glucagon Notes to patient: If needed for low blood sugar Inject 1 mg into the muscle once. HYDROcodone-acetaminophen 10-325 mg per tablet Take 1 tablet by mouth 4 times daily. aka: NORCO hyoscyamine 0.[address] 0.125 mg under the tongue every 4 hours as needed for Cramping or Diarrhea. aka: LEVSIN insulin lispro 100 units/mL injection (pen) Inject under the skin 3 times daily (before meals) and at night 1 unit for every 10 carbs aka: humaLOG KWIKPEN LASIX 40 mg tablet Generic drug: furosemide Take 40 mg by mouth 2 times daily. lisinopril 10 mg tablet Take 1 tablet by mouth 2 times daily. aka: PRINIVIL, ZESTRIL metoclopramide 10 mg tablet Take 10 mg by mouth 2 times daily. aka: REGLAN metoprolol tartrate 50 mg tablet Take 75 mg by mouth 2 times daily. aka: LOPRESSOR ondansetron 8 mg disintegrating tablet Take 8 mg by mouth every 8 hours as needed for Nausea. aka: ZOFRAN ODT pregabalin 100 mg capsule Take 100 mg by mouth 3 times daily as needed. For pain aka: LYRICA ZANTAC 150 mg tablet Generic drug: raNITIdine Take 150 mg by mouth Daily. HOSPITAL COURSE: Please refer to the H&P for full details and the most recent rounding rounding (progress) n ote. 29M PMHx Type 1 DM, gastroparesis, right BKA, chronic left foot ulcer, CKD III, p/w Diarrhe a and AMS from [facility], found to have DKA and Acute on chronic kidney injury. COVID 19 ruled out (negative 01/06 test). #Multiple small ground glass pulm nodules in lower lobes bilaterally 2/2 possible PNA. COVID 19 ruled out. On 2nd day of admission and precautions removed. Remained on room air a nd afebrile during admission. Elevated qtc on EKG with attempt to avoid QTc prolonging medic ations during admission. -Given IV CTX and doxycycline during admission. Switched to augmentin on discharge for 3 mo re day regimen for pneumonia #DKA, resolved #uncontrolled DM type 1 Started on drip on 01/05, off insulin drip on 01/06 and transferred out of ICU. Periods of hy poglycemia in pm of 01/06. Decreased lantus dose to 6U HS and ISS #1. Patient was on lantus 2 0U HS at home. Will continue decreased lantus dose for home with continued home sliding scal e that was in place. Blood sugars remained under control during admission with labs stable -continue lantus 6U HS and ISS#1 -Glucose achs #EULOGIO on CKD III Cr 3.32->2.91->2,67, baseline creatinine 2.0. expect continued improvement with avoiding ne phrotoxic agents and avoid NSAIDs. Continue to encourage oral intake on discharge. Can wilfred nue home meds #Anemia of chronic disease Hemoglobin 8.2->8.8 stable. Will monitor daily, monitor for bleeding #Right BKA Continue PT/OT and home health. Follow up outpatient #Left plantar foot ulcer Continue wound care with home health #Chronic pain Continue follow up with pain management as outpatient, no new opioid prescription given on discharge. Discharged home with family with home health in place. PT worked with the patient and recom mended SNF but patient refused and family stated was able to assist the patient at home. Can be discharged safely with home health and family on 01/09. All questions answered. Most recent weight: Input and output for last 24hrs: Wt Readings from Last 1 Encounters: 01/09/20 79 kg (174 lb 2.6 oz) I/O last 24 Hours: In: 890 [P.O.:890] Out: 950 [Urine:950] Vitals Ranges: Temp: [35.7 C (96.3 F)-36.5 C (97.7 F)] 36.3 C (97.4 F) Pulse: [83-107] 93 Resp: [16-18] 16 BP: (134-165)/(91-111) 144/108 Vitals: Temp: 36.3 C (97.4 F) BP: (!) 144/108 Pulse: 93 Resp: 16 SpO2: 100 % SpO2 100 % on room air at flow rate L/min PHYSICAL EXAM: Patient seen and examined by me on discharge day General NAD, AOx3 Cardiac RRR, no murmurs rubs or gallups Extremities No edema in LE Right BKA intact. Left plantar ulcer without discharge Dry skin, flakiness generalized Lung CTA bilaterally Abdominal Soft, tender right lower/mid quadrant on deep palpation, negative benavides's. NBS Neuro No focal neuro deficits PROCEDURES AND CONSULTS: Consults: PT/OT Imaging RESULTS: 01/05 CT chest/abd/pelvis without contrast IMPRESSION- 1. Multiple small ground-glass pulmonary nodules in the lower lobes bilaterally, likely infectious or inflammatory. 2. Small bilateral pleural effusions. Associated bibasilar consolidation, suggesting atelectasis or pneumonia. 3. No free air, bowel obstruction, ileus or fluid collection seen in the abdomen and pelvis. 4. Moderate anasarca. Trace amount of ascites. 5. Nonobstructing left renal calculi measuring up to 8 mm. No hydronephrosis seen. DISPOSITION AND DISCHARGE INSTRUCTIONS: Follow-up Information Emmanuel Saavedra. Schedule an appointment as soon as possible for a visit in 1 week. Specialty: Family Medicine Why: hospital follow up Contact information: [address] [place] [address] Discharge to home with family Home health ordered on discharge for PT, wound care, and medication management Condition: Patient being discharged with condition improved Diet: consistent carb diet Greater than 30 minutes were spent on discharge and coordination of post-hospital care. Electronically signed by: Willard Aldrich MD, 01/10/2020 10:55 AM [facility] Reference. This is NOT part of the patient's formal assessment section. In the assessment or plan section of notes the author may date some of the subsections with a number such as "" or "" to indicate the date of that entry or event. In the example below the 1st line is the original entry and the subsequent lines indicate flowing updates to the subsection: Example assessment subsection (such as CHF or CP or Pneumonia) Patient is improved today with resolution of symptoms Worse with recurrence of symptoms requiring further testing Portions of this chart may have been created with [employer] voice recognition software. Occasi onal wrong-word or sound-alike substitutions may have occurred due to the inherent lin itations of voice recognition software. Please read the chart carefully and recognize, using context, where these substitutions have occurred documented in th is encounter Discharge Instructions Instructions Stephanie Ramirez, PharmD - 01/08/2020 Please follow up with your primary care provider within 1 week following discharge from the hospital Continue your antibiotic for pneumonia as directed (3 more days) Continue physical therapy with home health Please monitor your blood sugars and keep of log for your primary care provider Note change in Lantus dose. Now changed to 6 units Lantus at night. No change to your slidi ng scale with meals Diabetic Ketoacidosis Diabetic ketoacidosis (DKA) is a serious problem that can happen in people with diabetes. D KA should be treated as a medical emergency. This is because it can lead to coma or . I f you have the symptoms of DKA, get medical help right away. DKA happens more often in people with type 1 diabetes. But it can happen in people with typ e 2 diabetes. It can also happen in women with diabetes during . This is often know n as gestational diabetes. DKA happens when insulin levels are too low. Without enough insulin, sugar (glucose) can t get to the cells of your body. The glucose stays in the blood. This causes high blood gluc ose (hyperglycemia). Without glucose, your body breaks down stored fat for energy. When this happens, acids called ketones are released into the blood. This is known as ketosis. High l evels of ketones (ketoacidosis) can be harmful to you. Hyperglycemia and ketoacidosis can al so cause serious problems in the blood and your body, such as: Low levels of potassium (hypokalemia) Swelling inside the brain (cerebral edema) Fluid in the lungs (pulmonary edema) Damage to kidneys or other organs What causes diabetic ketoacidosis? In people with diabetes, DKA is most often caused by too little insulin in the body. It is also caused by: Poor management of diabetes Infections like a urinary tract infection or pneumonia Serious health problems, such as a heart attack Reactions to certain prescribed medicines and illicit drugs Symptoms of diabetic ketoacidosis DKA most often happens slowly over time. But it can worsen in a few hours if you are vomiti ng. The first symptoms are: Thirst and dry mouth Urinating a lot Belly pain Nausea or vomiting Breath that smells fruity (from the ketones) Over time, these symptoms may happen: Dry or flushed skin Nausea and vomiting Loss of appetite Weight loss Belly pain Trouble breathing Trouble thinking or confusion Feeling very tired or weak. This can lead to coma. How is diabetic ketoacidosis diagnosed? Your healthcare provider will ask about your medical history. He or she will give you a phy sical exam. You may also have these tests: Blood tests to check your glucose levels Blood tests to check your electrolytes, such as potassium and sodium Urine test to check for ketones These tests are done to check for DKA, and monitor it over time. How is diabetic ketoacidosis treated? DKA needs treatment right away in the hospital. Treatment includes: Insulin. This is the main type of treatment. Insulin allows the cells to use the glucose in the blood. This lowers the levels of both blood glucose and ketones. Fluids and electrolytes. These are given through a vein (IV). Fluids are replaced and ab normal electrolyte levels are corrected. Other medicines. These may be given to treat an illness that caused DKA. For example, an tibiotics may be given to treat a urinary tract infection that caused DKA. Preventing diabetic ketoacidosis To help prevent DKA, make sure you: Take all of your medicines for diabetes exactly as prescribed. This includes insulin. Check your blood glucose levels exactly as instructed. Be especially careful when you are sick with an illness or an infection. Take extra care to follow diabetes care instructions. Check your blood glucose more often. Do not exercise when your blood sugar is high and you have ketones in your urine. Check your urine ketone levels if told to do so. This is done with a urine test strip. A sk your healthcare provider how often to check your urine. When to call your healthcare provider Call your healthcare provider right away if you: Have symptoms of DKA Have very high blood glucose levels Are getting sick with another illness Date Last Reviewed: 03/26/[id number] [employer]. [address] [place] [address], [place] [address]. All righ ts reserved. This information is not intended as a substitute for professional medical care. Always follow your healthcare professional's instructions. Probiotics Patient Discharge Information Sheet Probiotics are [...] flavors available): 8 ounces per day ? Platte Fresh Yogurt (many flavors available): 6 ounces per day AttachmentsThe following attachments cannot be sent through Care Everywhere.Adult, Pneumoni a ([place])documented in this encounter Medications at Time of [...] times daily. | | | 19 | | | ophen (NORCO) 10-325 | | [...] + + | insulin glargine | Inject 6 Units under | 1 pen | 0 | 01/10/20 | | | (LANTUS SOLOSTAR) | the skin nightly. | | | 20 | | | [...] +---------+ + + | metoclopramide | Take 10 mg by mouth | | 0 | | | | (REGLAN) 10 mg | 2 times daily. | | | | | | tablet [...] mg | Daily. | | | | | | tablet | | | | | | + + + +---------+ + + | | Take 1 tablet by | 6 | 0 | 01/10/20 | | | amoxicillin-clavulan | mouth 2 times daily | tablet | | 20 | 0 | | ate (AUGMENTIN) | for 3 days. | | | | | | 875-125 mg per | | | | | | | tablet | | | | | | + + + +---------+ + + documented as of this encounter Progress Willard Irwin MD - 01/09/2020 10:22 AM PDTFormatting of this note might be differen t from the original. [facility] HOSPITALIST PROGRESS NOTE Patient: Brooks Marquez : 1990: Age: 29 y.o. MedRec: [id number] PCP: Emmanuel Saavedra Admission date: 01/06/2020 Hospital day # : 3 Physician author: Willard Aldrich MD Today: 01/09/2020 Assessment and Hospital Course Active Hospital Problems Diagnosis Acute renal failure superimposed on stage 3 chronic kidney disease Diabetic ketoacidosis without coma associated with type 1 diabetes mellitus Resolved Hospital Problems No resolved problems to display. 29M PMHx Type 1 DM, gastroparesis, right BKA, chronic left foot ulcer, CKD III, p/w Diarrhe a and AMS from [facility], found to have DKA and Acute on chronic kidney injury. COVID 19 ruled out (negative 01/06 test) Plan #Multiple small ground glass pulm nodules in lower lobes bilaterally 2/2 possible PNA. COVID 19 ruled out. On room air. Elevated qtc on EKG will attempt to avoid QTc prolonging m edications. Can remove droplet precautions -continue IV CTX and doxycycline. Avoid hydroxychloroquine for qtc prolongation -will plan to switch to augmentin on discharge to complete treatment course of total 7 days . -continue supportive care -tylenol for fevers PRN #DKA, resolved #uncontrolled DM type 1 Off drip since 01/06. Periods of hypoglycemia in pm of 01/06. Decreased lantus dose to 6U HS and ISS #1 01/08 blood sugars in am under control -continue lantus 6U HS and ISS#1 -Glucose achs #tachycardia 90's-100's overnight. Hemodynamically stable, no apparent arrhythmias on tele -monitor tele -continue metoprolol #EULOGIO on CKD III Cr 3.32->2.91, improving. Continue to monitor renal function. Baseline Cr 1.7-2.0 Avoid nephrotoxic agents Renally dose medications #Anemia of chronic disease Hemoglobin 8.2 stable. Will monitor daily, monitor for bleeding DVT PPx: heparin GI PPx: pepcid Diet: CC diet Dispo: medical with tele, likely 1-2 more days inpatient for IV abx Willard Aldrich MD 01/09/2020 10:22 AM [facility] Subjective CC Continued nausea without vomiting, has right mid quadrant abdominal pain that is his chroni c abdominal pain. zofran and norco help. No acute events overnight. Afebrile, no shortness o f breath, no chest pain ROS See above Objective Exam General NAD, AOx3 Cardiac RRR, no murmurs rubs or gallups Extremities No edema in LE Right BKA intact. Left plantar ulcer without discharge Dry skin, flakiness generalized Lung CTA bilaterally Abdominal Soft, tender right lower/mid quadrant on deep palpation, negative benavides's. NBS Neuro No focal neuro deficits Serial weights: Filed Weights: 01/06/20 0300 01/06/20 0658 01/07/20 0500 01/08/20 0455 Weight: 74.5 kg (164 lb 3.9 oz) 74.5 kg (164 lb 3.9 oz) 81.2 kg (179 lb 0.2 oz) 79 kg (174 lb 2.6 oz) Most recent weight: Input and output 2 shifts and 3 shifts: Wt Readings from Last 1 Encounters: 01/08/20 79 kg (174 lb 2.6 oz) I/O last 24 Hours: In: 450 [P.O.:450] Out: 2650 [Urine:2650] I/O last 3 completed shifts: In: 550 [P.O.:450; IV Piggyback:100] Out: 3275 [Urine:3275] Vitals Ranges: Temp: [35.8 C (96.4 F)-37.2 C (99 F)] 36.6 C (97.9 F) Pulse: [81-99] 90 Resp: [11-18] 16 BP: (142-183)/(90-134) 142/93 Vitals: Temp: 36.6 C (97.9 F) BP: (!) 142/93 Pulse: 90 Resp: 16 SpO2: 98 % SpO2 98 % on room air at flow rate L/min Diet and Supplements Diet Diet consistent carb; Effective Now Number of Occurrences: Until Specified Order Questions: Type Diet consistent carb Objective Data Allergies: Allergies Allergen Reactions Codeine Nausea And Vomiting Reaction: Projectile vomit Current Medications: Current Facility-Administered Medications Medication Dose Route Frequency Provider Last Rate Last Dose acetaminophen (TYLENOL) tablet 650 mg 650 mg Oral Q4H PRN Erika Allison MD 650 mg a t 01/09/20 1015 calcium carbonate (TUMS) chewable tablet 1,000 mg 1,000 mg Oral Q4H PRN Erika Allison MD cefTRIAXone (ROCEPHIN) 2 g in sodium chloride 0.9% 50 mL IVPB 2 g Intravenous Daily We crispin Gonzales MD 100 mL/hr at 01/08/20 0834 2 g at 01/08/20 0834 dextrose 50% injection 12.5-25 g 12.5-25 g Intravenous PRN Erika Allison MD 25 g at 01/07/20 1238 And dextrose 10% (D10W) infusion Intravenous Continuous PRN Erika Allison MD dextrose 5% and sodium chloride 0.45% with KCl 20 mEq/L (D5 1/2 NS + KCL 20) infusion Intravenous PRN Yo Gonzales MD Stopped at 01/07/20 0218 doxycycline (VIBRAMYCIN) 100 mg in sodium chloride 0.9% 100 mL IVPB 100 mg Intravenous 2 times per day Yo Gonzales MD 100 mL/hr at 01/08/20 2141 100 mg at 01/08/20 2141 famotidine (PEPCID) tablet 20 mg 20 mg Oral Daily Nelson Varghese, PharmD 20 mg at 1014 heparin 5,000 units/mL injection 5,000 Units 5,000 Units Subcutaneous 2 times per day Erika Allison MD 5,000 Units at 01/08/20 2115 HYDROcodone-acetaminophen (NORCO) 5-325 mg per tablet 1-2 tablet 1-2 tablet Oral Q6H P RN Erika Allison MD 2 tablet at 01/09/20 0446 insulin glargine (LANTUS SOLOSTAR) injection (pen) 6 Units 6 Units Subcutaneous Nightl y Willard Bernadette Aldrich MD 6 Units at 01/08/20 2156 insulin lispro (humaLOG KWIKPEN) injection (pen) 0-6 Units 0-6 Units Subcutaneous 4x D aily WC and HS Erika Allison MD 1 Units at 01/08/208 labetalol (TRANDATE) 5 mg/mL injection 10 mg 10 mg Intravenous Q4H PRN Yo Gonzales MD 10 mg at 01/09/20 0348 lactobacillus GG (CULTURELLE) capsule 1 capsule 1 capsule Oral BID Maddie Altamirano, PharmD 1 capsule at 01/09/20 1014 loperamide (IMODIUM) capsule 2 mg 2 mg Oral Q3H PRN Erika Allison MD 2 mg at 6 melatonin tablet 3 mg 3 mg Oral Nightly PRN Erika Allison MD metoclopramide (REGLAN) 5 mg/mL injection 5 mg 5 mg Intravenous Q6H PRN Willard Aldrich MD metoprolol tartrate (LOPRESSOR) tablet 50 mg 50 mg Oral BID Yo Gonzales MD 50 m g at 01/09/20 1014 naloxone (NARCAN) 0.4 mg/mL injection 0.4 mg 0.4 mg Intravenous PRN Erika Allison MD ondansetron (ZOFRAN) injection 4 mg 4 mg Intravenous Q6H PRN Willard Aldrich MD 4 mg at 01/09/20 0328 Current Infusions: dextrose 10% Hematology and anemia Recent Labs Lab 01/09/2043901/08/2044301/07/20441 WBC 5.7 7.8 11.8* HGB 8.2* 8.2* 8.3* HCT 25.5* 25.4* 25.3* PLT 173 192 135* NEUPCT 56.5 64.6 77.5 No results for input(s): PROTIME, INR, PTT in the last 168 hours. Recent Labs Lab 01/06/20 0804 IRON 84 TIBC 153* PCTSAT 55.0 FERRITIN 480* [id number] 1,885* FOLATE 2.0* Inflammatory markers Recent Labs Lab 01/07/202 01/06/20 0328 LACTATE -- 0.9 PROCALCITONI 1.33* 1.15* Chemistry Recent Labs Lab 01/09/20 0440 01/08/20 0444 01/07/20 0442 01/06/20 0328 GLU 143* 122* 132* < > 612* NA 142 143 142 < > 135* K 4.6 4.5 4.8 < > 5.5* CL 112* 115* 114* < > 104 CO2 21 19* 19* < > <10* ANIONGAP 9 9 9 < > -- BUN 46* 49* 58* < > 67* CREA 2.91* 3.32* 3.76* < > 4.16* GFRNONAA 26* 22* 19* < > 17* CALCIUM 7.8* 7.8* 7.3* < > 7.3* ALBUMIN -- 2.4* 2.4* -- 2.5* TOTALPROTEIN -- -- 4.5* -- 4.7* BILITOT -- -- <0.2* -- <0.2* ALKPHOS -- -- 129* -- 129* ALT -- -- 29 -- 31 AST -- -- 27 -- 18 < > = values in this interval not displayed. Recent Labs Lab 01/09/20 0440 01/08/20 0444 01/07/20 0442 01/07/20 0020 MG 1.7 1.7 1.8 1.9 PHOS -- 5.3* 6.1* 6.2* No results for input(s): AMYLASE, LIPASE in the last 168 hours. No results for input(s): TRIG, CHOL, HDL, LDL in the last 168 hours. No results for input(s): AMMONIA in the last 168 hours. Cardiology & Digoxin Recent Labs Lab 01/06/20 0328 TROPONIN 0.01 ABG No results for input(s): PHART, PO2ART, [id number], FXL9ORX, BEART, A6UQFCIP in the last 168 h ours. Recent Labs Lab 01/06/20 0250 HCO3 5.1 Drug of overdose and abuse No results for input(s): ALCOHOL, ACTMN, SALICYLATE in the last 168 hours. Recent Labs Lab 01/06/20 2105 AMPHEQUAL Negative BARBITURATE Negative BENZSCR Negative CANNIBSCR Positive* METHADSCR Negative OPIATESCR Positive* Urinalysis Recent Labs Lab 01/06/20 0428 GLUCOSEU >=500 mg/dL* WBCUA 50-100* RBCUA 15-25* SQUAMEPIUA 50-100* BACTERIAUA 2+* Point of care glucose Recent Labs Lab 01/09/20 0646 01/08/20 2122 01/08/20 1620 01/08/20 1205 01/08/20 0607 01/07/20 2338 POCGLU 114* 204* 216* 162* 113* 138* Micro results more choices using dot micro (below is last 7 days) Microbiology Results (Last 7) Date with Culture/Sensitivity) Procedure Component Value Units Date/Time [facility] STAT instructions for COVID-19 tracking [[id number]] Collected: 01/07/201451 Order Status: Canceled Lab Status: No result Updated: 01/07/201451 Specimen: Tissue from Nasopharynx Coronavirus (COVID-19) NAAT [[id number]] (Normal) Collected: 01/07/20 144 Order Status: Completed Lab Status: Final result Updated: 01/07/201902 Specimen: Tissue from Nasopharynx SARS coronavirus 2 RNA Not Detected Comment: See Scanned Report [facility] STAT instructions for COVID-19 tracking [[id number]] Collected: 01/07/201446 Order Status: Completed Lab Status: Final result Updated: 01/07/201902 Specimen: Tissue from Nasopharynx [facility] COVID STAT instruction done Stool Pathogens, NAAT [[id number]] (Normal) Collected: 01/06/20428 Order Status: Completed Lab Status: Final result Updated: 01/06/20 0816 Specimen: Stool Campylobacter, NAAT Not Detected Salmonella, NAAT Not Detected Shigella NAAT Not Detected Vibrio, NAAT Not Detected Yersinia enterocolitica, NAAT Not Detected Shigatoxin 1 Not Detected Shigatoxin 2 Not Detected Clostridioides difficle NAAT reflex to Tox Ag [[id number]] Collected: 01/06/20428 Order Status: Completed Lab Status: Final result Updated: 01/06/20704 Specimen: Stool Narrative: The following orders were created for panel order Clostridioides difficle NAAT reflex to T ox Ag. Procedure Abnormality Status --------- ------ Clostridioides difficile...[[id number]] Final result Please view results for these tests on the individual orders. Clostridioides difficile NAAT Reflex [[id number]] Collected: 01/06/20428 Order Status: Completed Lab Status: Final result Updated: 01/06/20 07 Specimen: Stool C. difficile, Interp Negative Comment: No Toxigenic C. difficile detected. Consider other causes of Diarrhea. Repeat te sting should not be performed within 7 days. C. difficile, NAAT Negative Fecal leukocytes [[id number]] (Normal) Collected: 01/06/20427 Order Status: Completed Lab Status: Final result Updated: 01/06/20 0504 Specimen: Stool Lactoferrin, Qual Negative Culture, Urine [[id number]] (Normal) Collected: 01/06/20 0428 Order Status: Completed Lab Status: Final result Updated: 01/08/20 1209 Specimen: Urine, Unspecified Source Culture No Growth Culture, Blood [[id number]] Collected: 01/06/20 0339 Order Status: Completed Lab Status: Preliminary result Updated: 01/09/20 0441 Specimen: Peripheral Blood Culture No growth: Monitored continually by instrument for 5 days Culture, Blood [[id number]] Collected: 01/06/20 0329 Order Status: Completed Lab Status: Preliminary result Updated: 01/09/20 044 Specimen: Peripheral Blood Culture No growth: Monitored continually by instrument for 5 days Culture, MRSA [[id number]] (Normal) Collected: 01/06/20 0255 Order Status: Completed Lab Status: Final result Updated: 01/07/20 0742 Specimen: Body Fluid from Nares Culture Negative for MRSA by chromogenic agar method. Culture, MRSA [[id number]] Order Status: Canceled Lab Status: No result Specimen: Tissue from Nares Culture, MRSA [[id number]] Order Status: Canceled Lab Status: No result Specimen: Tissue from Nares Radiology results (more choices using dot risresults) No results found. Reference. This is NOT part of the patient's formal assessment section. In the assessment or plan section of notes the author may date some of the subsections with a number such as "23" or "23" to indicate the date of that entry or event. In the example below the 1st line is the original entry and the subsequent lines indicate flowing updates to the subsection: Example assessment subsection (such as CHF or CP or Pneumonia) 23 Patient is improved today with resolution of symptoms 24th Worse with recurrence of symptoms requiring further testing Portions of this chart may have been created with [employer] voice recognition software. Occasi onal wrong-word or sound-alike substitutions may have occurred due to the inherent lin itations of voice recognition software. Please read the chart carefully and recognize, using context, where these substitutions have occurred Mariama Acuña, PharmD - 01/08/2020 3:09 PM PDTFormatting of this note might be different from the origi nal. PHARMACY SERVICES: ADMISSION MEDICATION REVIEW Brooks Marquez is a 29 y.o. male admitted on 01/06/2020. Patient is not a reliable historian. Location of Patient when reviewed: MEDICAL FLOOR Patient s prior to admit medication and over the counter (OTC) medications/herbal supplem ents list obtained from: X Verbal interview assisted by Mother-Gia who is a reliable historian (this person manages medications) X Patient not interviewed or unable to supply information due to: Mom helps with medications X Patient/family member provided A CURRENT MEDICATION LIST and MEDICATION BOTTLES X Doctor's office: [facility] X Pharmacy list names: [facility] X Outside Information Vaccines up to date? Influenza Unsure Pneumococcal Yes Tdap Unsure Shingles No Noted medications discrepancies or medication-related issues: Dosage/Form/Frequency change: [employer] Medication: Prior to Admission Sig: Correct Dosage/Form: Correct Sig: Furosemide (Lasix PO) Take 40 mg by mouth 2 times daily Furosemide 40 mg tablet Take 1 tabl et by mouth 2 times daily Glucagon Emergency 1 mg injection No sig Inject 1 mg intramuscularly once as needed Hydrocodone-Acetaminophen 5-325 tablet Take tablet by mouth 4 times daily Take 1 tablet by mouth 4 times daily Insulin glargine (Lantus) 100 units per ml Inject 40 units under the skin nightly Inject 2 0 units under the skin nightly Insulin Lispro (Humalog) 100 units per ml Inject under the skin 3 times daily (before meals ) Inject under the skin 3 times daily (before meals) and at night 1 unit for every 10 carbs Metoprolol tartrate 50 mg tablet Take 1 tablet by mouth 2 times daily Take 1.5 tablets by mouth 2 times daily Ranitidine 150 mg tablet Take 1 tablet by mouth 2 times daily Take 1 tablet by mouth daily Medication added: Medication: Prior to Admission Sig: Pregabalin 100 mg capsule Take 1 capsule by mouth 3 times daily as needed for pain Hyoscyamine 0.[address] 1 tablet under the tongue every 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 Taking Historical Prov iderMD GLUCAGON EMERGENCY 1 MG injection Inject 1 [...] (LANTUS SOLOSTAR) 100 units/mL injection (pen) Inject 20 Units under the skin nightly. Taking Emmanuel Saavedra insulin lispro (HUMALOG KWIKPEN) 100 units/mL injection (pen) Inject under the skin 3 time s daily (before meals) and at night 1 unit for every 10 carbs Taking Emmanuel Saavedra lisinopril (PRINIVIL, ZESTRIL) 10 mg tablet Take 1 tablet by mouth 2 times daily. Taking Historical MD Divya metoclopramide (REGLAN) 10 mg tablet Take 10 mg by mouth 2 times daily. Taking Historical ProviderMD metoprolol tartrate (LOPRESSOR) 50 mg tablet Take 75 mg by mouth 2 times daily. Taking [facility] ProviderMD ondansetron (ZOFRAN ODT) 8 mg disintegrating tablet Take 8 mg by mouth every 8 hours as ne eded for Nausea. Taking Vahid ProviderMD pregabalin (LYRICA) 100 mg capsule Take 100 mg by mouth 3 times daily as needed. For pain Taking Emmanuel Saavedra raNITIdine (ZANTAC) 150 mg tablet Take 150 mg by mouth Daily. Taking Vahid Stokes MD Medication review performed and electronically signed by Kay Cleary, Hand Stapler 01/08/2020 1:40 PM Reviewed by Mariama Saavedra, PharmD 01/08/2020 3:02 PM erry, Willard luna MD - 01/08/2020 7:52 AM PDTFormatting of this note might be different from the origi nal. [place] HOSPITALIST PROGRESS NOTE Patient: Brooks Marquez : 1990: Age: 29 y.o. MedRec: [id number] PCP: Emmanuel Saavedra Admission date: 01/06/2020 Hospital day # : 2 Physician author: Willard Aldrich MD Today: 01/08/2020 Assessment and Hospital Course Active Hospital Problems Diagnosis Acute renal failure superimposed on stage 3 chronic kidney disease Diabetic ketoacidosis without coma associated with type 1 diabetes mellitus Resolved Hospital Problems No resolved problems to display. 29M PMHx Type 1 DM, gastroparesis, right BKA, chronic left foot ulcer, CKD III, p/w Diarrhe a and AMS from [facility], found to have DKA and Acute on chronic kidney injury. COVID 19 ruled out (negative 01/06 test) Plan #Multiple small ground glass pulm nodules in lower lobes bilaterally 2/2 possible PNA. COVID 19 ruled out. On room air. Elevated qtc on EKG will attempt to avoid QTc prolonging m edications. Can remove droplet precautions -continue CTX and doxycycline. Avoid hydroxychloroquine for qtc prolongation -continue supportive care -tylenol for fevers PRN #DKA, resolved #uncontrolled DM type 1 Off drip since 01/06. Periods of hypoglycemia in pm of 01/06. Decreased lantus dose to 6U HS and ISS #1 Glucose achs #tachycardia 90's-100's overnight. Hemodynamically stable, no apparent arrhythmias on tele -monitor tele -continue metoprolol #EULOGIO on CKD III Cr 3.32 from 3.93, improving. Continue to monitor renal function. Baseline Cr 1.7-2.0 Avoid nephrotoxic agents Renally dose medications #Anemia of chronic disease Hemoglobin stable at 8.2. Will monitor daily DVT PPx: heparin GI PPx: pepcid Diet: CC diet Dispo: step down unit, likely 2-3 more days inpatient Willard Aldrich MD 01/08/2020 7:52 AM [facility] Subjective CC Some nausea, mid epigastric discomfort, tolerating breakfast. Does not know the date but kn ows year and place. Afebrile. Mild tachycardia 90's-100's overnight ROS See above Objective Exam General NAD, AOx2 (not month but knows year and place Cardiac Tachycardia, no murmurs No chest wall tenderness Extremities No edema Right BKA intact. Left plantar ulcer without discharge Dry skin, flakiness Lung CTA bilaterally on room air Abdominal Soft, nontender, nondistended, NBS Neuro No focal neuro deficits Serial weights: Filed Weights: 01/06/20 0300 01/06/20 0658 01/07/20 0500 01/08/20 0455 Weight: 74.5 kg (164 lb 3.9 oz) 74.5 kg (164 lb 3.9 oz) 81.2 kg (179 lb 0.2 oz) 79 kg (174 lb 2.6 oz) Most recent weight: Input and output 2 shifts and 3 shifts: Wt Readings from Last 1 Encounters: 01/08/20 79 kg (174 lb 2.6 oz) I/O last 24 Hours: In: 218 [P.O.:118; IV Piggyback:100] Out: 1775 [Urine:1775] I/O last 3 completed shifts: In: 1860.6 [P.O.:118; I.V.:1642.6; IV Piggyback:100] Out: 2900 [Urine:2900] Vitals Ranges: Temp: [35.9 C (96.6 F)-37.3 C (99.1 F)] 37.3 C (99.1 F) Pulse: [95-108] 96 Resp: [9-18] 11 BP: (119-169)/(88-120) 154/101 Vitals: Temp: 37.3 C (99.1 F) BP: (!) 154/101 Pulse: 96 Resp: 11 SpO2: 99 % SpO2 99 % on room air at flow rate L/min Diet and Supplements Diet Diet consistent carb; Effective Now Number of Occurrences: Until Specified Order Questions: Type Diet consistent carb Objective Data Allergies: Allergies Allergen Reactions Codeine Nausea And Vomiting Reaction: Projectile vomit Current Medications: Current Facility-Administered Medications Medication Dose Route Frequency Provider Last Rate Last Dose acetaminophen (TYLENOL) tablet 650 mg 650 mg Oral Q4H PRN Erika Allison MD calcium carbonate (TUMS) chewable tablet 1,000 mg 1,000 mg Oral Q4H PRN Erika Allison MD cefTRIAXone (ROCEPHIN) 2 g in sodium chloride 0.9% 50 mL IVPB 2 g Intravenous Daily We crispin Gonzales MD 100 mL/hr at 01/07/20 0856 2 g at 01/07/20 0856 dextrose 50% injection 12.5-25 g 12.5-25 g Intravenous PRN Erika Allison MD 25 g at 01/07/20 1238 And dextrose 10% (D10W) infusion Intravenous Continuous PRN Erika Allison MD dextrose 5% and sodium chloride 0.45% with KCl 20 mEq/L (D5 1/2 NS + KCL 20) infusion Intravenous PRN Yo Gonzales MD Stopped at 01/07/20 0218 doxycycline (VIBRAMYCIN) 100 mg in sodium chloride 0.9% 100 mL IVPB 100 mg Intravenous 2 times per day Yo Gonzales MD 100 mL/hr at 01/07/20 2042 100 mg at 01/07/20 204 famotidine (PEPCID) injection 20 mg 20 mg Intravenous Daily Antonino Saavedra, KeenanD 20 mg at 01/07/20 0828 heparin 5,000 units/mL injection 5,000 Units 5,000 Units Subcutaneous 2 times per day Erika Allison MD 5,000 Units at 01/07/20 2055 HYDROcodone-acetaminophen (NORCO) 5-325 mg per tablet 1-2 tablet 1-2 tablet Oral Q6H P RN Erika Allison MD 2 tablet at 01/08/20 0437 insulin glargine (LANTUS SOLOSTAR) injection (pen) 6 Units 6 Units Subcutaneous Nightl y Willard Aldrich MD insulin lispro (humaLOG KWIKPEN) injection (pen) 0-6 Units 0-6 Units Subcutaneous 4x D aily WC and HS Erika Allison MD labetalol (TRANDATE) 5 mg/mL injection 10 mg 10 mg Intravenous Q4H PRN Yo Gonzales MD 10 mg at 01/07/20 1712 lactobacillus GG (CULTURELLE) capsule 1 capsule 1 capsule Oral BID Maddie Altamirano, PharmD loperamide (IMODIUM) capsule 2 mg 2 mg Oral Q3H PRN Erika Allison MD 2 mg at 6 melatonin tablet 3 mg 3 mg Oral Nightly PRN Erika Allison MD metoprolol tartrate (LOPRESSOR) tablet 50 mg 50 mg Oral BID Yo Gonzales MD 50 m g at 01/07/20 1713 naloxone (NARCAN) 0.4 mg/mL injection 0.4 mg 0.4 mg Intravenous ALYSSA Allison MD Current Infusions: dextrose 10% Hematology and anemia Recent Labs Lab 01/08/204 01/07/202 01/06/20 0328 WBC 7.8 11.8* 18.7* HGB 8.2* 8.3* 7.9* HCT 25.4* 25.3* 25.9* PLT 192 135* 219 NEUPCT 64.6 77.5 79.6 No results for input(s): PROTIME, INR, PTT in the last 168 hours. Recent Labs Lab 01/06/20 0804 IRON 84 TIBC 153* PCTSAT 55.0 FERRITIN 480* [id number] 1,885* FOLATE 2.0* Inflammatory markers Recent Labs Lab 01/07/202 01/06/20 0328 LACTATE -- 0.9 PROCALCITONI 1.33* 1.15* Chemistry Recent Labs Lab 01/08/20 0444 01/07/20 0442 01/07/20 0020 01/06/20 0328 GLU 122* 132* 119* < > 612* NA 143 142 139 < > 135* K 4.5 4.8 4.7 < > 5.5* CL 115* 114* 111* < > 104 CO2 19* 19* 18* < > <10* ANIONGAP 9 9 10 < > -- BUN 49* 58* 61* < > 67* CREA 3.32* 3.76* 3.93* < > 4.16* GFRNONAA 22* 19* 18* < > 17* CALCIUM 7.8* 7.3* 7.2* < > 7.3* ALBUMIN 2.4* 2.4* -- -- 2.5* TOTALPROTEIN -- 4.5* -- -- 4.7* BILITOT -- <0.2* -- -- <0.2* ALKPHOS -- 129* -- -- 129* ALT -- 29 -- -- 31 AST -- 27 -- -- 18 < > = values in this interval not displayed. Recent Labs Lab 01/08/20 0444 01/07/20 0442 01/07/20 0020 MG 1.7 1.8 1.9 PHOS 5.3* 6.1* 6.2* No results for input(s): AMYLASE, LIPASE in the last 168 hours. No results for input(s): TRIG, CHOL, HDL, LDL in the last 168 hours. No results for input(s): AMMONIA in the last 168 hours. Cardiology & Digoxin Recent Labs Lab 01/06/20 0328 TROPONIN 0.01 ABG No results for input(s): PHART, PO2ART, RLW4EKX, LXM7ZYA, BEART, C8HOFVBN in the last 168 h ours. Recent Labs Lab 01/06/20 0250 HCO3 5.1 Drug of overdose and abuse No results for input(s): ALCOHOL, ACTMN, SALICYLATE in the last 168 hours. Recent Labs Lab 01/06/20 2105 AMPHEQUAL Negative BARBITURATE Negative BENZSCR Negative CANNIBSCR Positive* METHADSCR Negative OPIATESCR Positive* Urinalysis Recent Labs Lab 01/06/20 0428 GLUCOSEU >=500 mg/dL* WBCUA 50-100* RBCUA 15-25* SQUAMEPIUA 50-100* BACTERIAUA 2+* Point of care glucose Recent Labs Lab 01/08/20 0607 01/07/20 2338 01/07/20 2026 01/07/20 1830 01/07/20 1707 01/07/20 1310 POCGLU 113* 138* 96 70 60* 84 Micro results more choices using dot micro (below is last 7 days) Microbiology Results (Last 7) Date with Culture/Sensitivity) Procedure Component Value Units Date/Time [facility] STAT instructions for COVID-19 tracking [[id number]] Collected: 01/07/20 145 Order Status: Canceled Lab Status: No result Updated: 01/07/20 145 Specimen: Tissue from Nasopharynx Coronavirus (COVID-19) NAAT [[id number]] (Normal) Collected: 01/07/20 1447 Order Status: Completed Lab Status: Final result Updated: 01/07/20 1903 Specimen: Tissue from Nasopharynx SARS coronavirus 2 RNA Not Detected Comment: See Scanned Report [facility] STAT instructions for COVID-19 tracking [[id number]] Collected: 01/07/20 1447 Order Status: Completed Lab Status: Final result Updated: 01/07/20 1903 Specimen: Tissue from Nasopharynx [facility] COVID STAT instruction done Stool Pathogens, NAAT [[id number]] (Normal) Collected: 01/06/20428 Order Status: Completed Lab Status: Final result Updated: 01/06/20 0816 Specimen: Stool Campylobacter, NAAT Not Detected Salmonella, NAAT Not Detected Shigella NAAT Not Detected Vibrio, NAAT Not Detected Yersinia enterocolitica, NAAT Not Detected Shigatoxin 1 Not Detected Shigatoxin 2 Not Detected Clostridioides difficle NAAT reflex to Tox Ag [[id number]] Collected: 01/06/20428 Order Status: Completed Lab Status: Final result Updated: 01/06/20 07 Specimen: Stool Narrative: The following orders were created for panel order Clostridioides difficle NAAT reflex to T ox Ag. Procedure Abnormality Status --------- ------ Clostridioides difficile...[[id number]] Final result Please view results for these tests on the individual orders. Clostridioides difficile NAAT Reflex [[id number]] Collected: 01/06/20428 Order Status: Completed Lab Status: Final result Updated: 01/06/20 07 Specimen: Stool C. difficile, Interp Negative Comment: No Toxigenic C. difficile detected. Consider other causes of Diarrhea. Repeat te sting should not be performed within 7 days. C. difficile, NAAT Negative Fecal leukocytes [[id number]] (Normal) Collected: 01/06/20427 Order Status: Completed Lab Status: Final result Updated: 01/06/20 0504 Specimen: Stool Lactoferrin, Qual Negative Culture, Urine [[id number]] (Normal) Collected: 01/06/20427 Order Status: Completed Lab Status: Preliminary result Updated: 01/07/20 0832 Specimen: Urine, Unspecified Source Culture No growth to date Culture, Blood [[id number]] Collected: 01/06/20 0339 Order Status: Completed Lab Status: Preliminary result Updated: 01/06/20 1641 Specimen: Peripheral Blood Culture No growth: Monitored continually by instrument for 5 days Culture, Blood [[id number]] Collected: 01/06/20 0329 Order Status: Completed Lab Status: Preliminary result Updated: 01/06/20 1641 Specimen: Peripheral Blood Culture No growth: Monitored continually by instrument for 5 days Culture, MRSA [[id number]] (Normal) Collected: 01/06/20 0255 Order Status: Completed Lab Status: Final result Updated: 01/07/20 0742 Specimen: Body Fluid from Nares Culture Negative for MRSA by chromogenic agar method. Culture, MRSA [[id number]] Order Status: Canceled Lab Status: No result Specimen: Tissue from Nares Culture, MRSA [[id number]] Order Status: Canceled Lab Status: No result Specimen: Tissue from Nares Radiology results (more choices using dot risresults) Ct Chest Abdomen Pelvis Wo Contrast Result Date: 01/06/2020 CT CHEST ABDOMEN PELVIS WO CONTRAST 01/06/2020 3:02 PM HISTORY: Cough Shortness of breath Co ugh, shortness of breath, hydronephrosis, abdominal pain.. COMPARISON: Multiple priors. PROT OCOL: Axial images of the chest, abdomen, and pelvis were obtained. Coronal and sagittal ref ormations were acquired. FINDINGS: Lack of intravenous contrast typically diminishes sensiti vity for assessment of solid organs and vascular structures. CHEST Lungs, Pleura and Airways : Multiple small ground-glass nodules identified within the lower lobes bilaterally. Small bilateral pleural effusions, associated small amount of consolidation involving the lung bas es. Mediastinum: No cardiomegaly or pericardial effusion. Aorta does not appear aneurysmal. Lymph Nodes: No enlarged lymph nodes seen. ABDOMEN Solid organ evaluation suboptimal withou t contrast. Liver and Biliary: Liver and gallbladder appear unremarkable. Pancreas, Spleen a nd Adrenals: Appear unremarkable. Kidneys: There are 4-5 nonobstructing left renal calculi s een measuring up to 8 mm. No hydronephrosis seen. Right kidney appears unremarkable. ABDOM EN AND PELVIS Bowel: Appendix is not definitively seen. No bowel obstruction or ileus seen. Vessels: Aorta does not appear aneurysmal. Lymph Nodes: No enlarged lymph nodes seen. Perit oneum and Retroperitoneum: Trace ascites. No free air seen. PELVIS Genitourinary: Urinary b ladder appears to be decompressed secondary to indwelling Camarena catheter. BODY WALL Soft Tis sues: Moderate anasarca. Bones: No acute or destructive osseous process seen. IMPRESSION- 1. Multiple small ground-glass pulmonary nodules in the lower lobes bilaterally, likely infect ious or inflammatory. 2. Small bilateral pleural effusions. Associated bibasilar consolid ation, suggesting atelectasis or pneumonia. 3. No free air, bowel obstruction, ileus or fl uid collection seen in the abdomen and pelvis. 4. Moderate anasarca. Trace amount of asci torin. 5. Nonobstructing left renal calculi measuring up to 8 mm. No hydronephrosis seen. A p reliminary report was sent by [facility] with no significant discrepancy on 01/06/2020 4 :25 PM. Dictated and Signed by: Zenon Cruz MD Electronically signed: 01/06/2020 6:28 PM 1. Multiple small ground-glass pulmonary nodules in the lower lobes bilaterally, likely inf ectious or inflammatory. 2. Small bilateral pleural effusions. Associated bibasilar conso lidation, suggesting atelectasis or pneumonia. 3. No free air, bowel obstruction, ileus or fluid collection seen in the abdomen and pelvis. 4. Moderate anasarca. Trace amount of a scites. 5. Nonobstructing left renal calculi measuring up to 8 mm. No hydronephrosis seen. Signed by: Ron Sheriff, Tomer Sign Date/Time: 01/06/2020 4:25 PM Reference. This is NOT part of the patient's formal assessment section. In the assessment or plan section of notes the author may date some of the subsections with a number such as "23" or "23" to indicate the date of that entry or event. In the example below the 1st line is the original entry and the subsequent lines indicate flowing updates to the subsection: Example assessment subsection (such as CHF or CP or Pneumonia) 23 Patient is improved today with resolution of symptoms 24th Worse with recurrence of symptoms requiring further testing Portions of this chart may have been created with [employer] voice recognition software. Occasi onal wrong-word or sound-alike substitutions may have occurred due to the inherent lin itations of voice recognition software. Please read the chart carefully and recognize, using context, where these substitutions have occurred Maddie Pimentel PharmD - 01/08/2020 7:50 AM PDTPharmacy Services Probiotic protocol initiated for qualifying patients if the patient has been on antibiotics for <72 hours and after inclusion/exclusion criteria assessed. If the patient has been on a ntibiotics for >72 hours probiotics will not be initiated, despite meeting inclusion/exclusi on criteria. Inclusion criteria: Patient is Age 1818 years old or older Yes [x] No [] Exclusion criteria: Yes [] No [x] Surgical antibiotic prophylaxis Yes [] No [x] On Vancomycin IV monotherapy Yes [] No [x] Active antibiotics exclusively for CDI treatment Yes [] No [x] Acute pancreatitis Yes [] No [x] Immunocompromised Yes [] No [x] (Neutropenia with ANC <1000, HIV with CD4 count <200,C hemotherapy or radiation, Solid organ transplant, Active hematologic malignancy) Plan: 1. Initiate probiotics per protocol;YES 2. AVS updated with ".rxprobioticdischarge"; YES 3. Enter stop time for 5 days after antibiotics if/when end time established Maddie Altamirano PharmD 01/08/2020 7:51 AM Yo Neumann MD - 01/07/2020 8:12 AM PDT [facility] Adult Hospitalist Progress Note Hospital Day: 1 Patient Summary: Briefly, 29-year-old male with an extensive past medical history most significant for type 1 diabetes mellitus complicated with gastroparesis right BKA and chronic left foot ulc er and CKD stage III who presented initially to [facility] with a chief complaint of di arrhea and confusion transferred to [facility] ICU for DKA and acute on chronic r enal failure, requiring higher level of care. SUBJECTIVE No acute overnight events. Patient is alert and oriented x4. Patient denies any juarez rtness of breath at rest. Does note mild shortness of breath with minimal exertion. Associ ated with transient nonproductive cough, fatigue, malaise and weakness. Patient presently d enies any cough. Progression stable with mild improvement in the past 24 hours. Review of Systems Constitutional: Positive for chills and malaise/fatigue. HENT: Negative for nosebleeds. Eyes: Negative for double vision. Respiratory: Positive for shortness of breath. Cardiovascular: Negative for chest pain and palpitations. Gastrointestinal: Negative for abdominal pain. Genitourinary: Negative for dysuria. Neurological: Negative for focal weakness. Psychiatric/Behavioral: Negative for hallucinations. OBJECTIVE Vital Signs: BP 111/72 | Pulse 100 | Temp 36.6 C (97.9 F) (Bladder) | Resp 13 | Wt 81.2 kg (179 lb 0.2 oz) | SpO2 95% | BMI 22.38 kg/m Physical Exam Vitals signs and nursing note reviewed. Constitutional: General: He is not in acute distress. HENT: Head: Normocephalic. Eyes: Pupils: Pupils are equal, round, and reactive to light. Neck: Musculoskeletal: Neck supple. Cardiovascular: Rate and Rhythm: Tachycardia present. Pulses: Normal pulses. Pulmonary: Effort: No respiratory distress. Comments: Coarse breath sounds bilaterally. Abdominal: General: Bowel sounds are normal. Tenderness: There is no guarding or rebound. Musculoskeletal: General: Deformity (Right BKA) present. Neurological: Mental Status: He is alert and oriented to person, place, and time. Mental status is at baseline. DATA BMP 142 114* 58* 132* 4.8 19* 3.76* CaMgPhos 7.3* 1.8 6.1* LFT 27 129* 4.5* 29 <0.2* 2.4* CBC 11.8* 8.3* 135* 25.3* Coag Last labs from current encounter as of 01/07/20-08:12 Recent Labs 01/06/20 0328 TROPONIN 0.01 Recent Labs 01/07/20 0442 01/06/20 0328 PROCALCITONI 1.33* 1.15* Imaging: -Imaging reviewed and will be addressed as indicated in the assessment and plan. PROBLEM LIST Active Problems: Diabetic ketoacidosis without coma associated with type 1 diabetes mellitus Acute renal failure superimposed on stage 3 chronic kidney disease Resolved Problems: * No resolved hospital problems. * IMPRESSION/PLAN: Multiple small groundglass pulmonary nodules in the lower lobes bilaterally: -Pneumonia versus rule out COVID 19. Patient is on special droplet precautions. -Afebrile in the past 24 hours. Mildly tachycardic with otherwise stable hemodynamics. Lemuel ortega is presently on room air saturating between 95-100%. -EKG demonstrates elevated QTC. -CT of the chest, abdomen pelvis reviewed. -Rocephin and doxycycline. Discussed with pharmacy doxycycline least likely to cause eff ect on QTC. Did not start hydroxychloroquine. -Continue with supportive care measures. -Updated the patient's mother regarding current vital signs, laboratory results, imaging re sults and prognosis. Tachycardia: -Most likely secondary to point #1 in the context of the patient taking outpatient Lopresso r 50 mg twice daily. -We will restart home medication, as the patient's hemodynamics have remained stable. -We will monitor. DKA: -Resolving. -Most likely secondary to infectious etiology. -Hemodynamically stable. Afebrile in the past 24 hours. -The patient's anion gap closed on 01/05 evening and patient was converted to Lantus 20 unit s nightly (home regimen 30 units nightly) with insulin sliding scale and Accu-Cheks before m eals and at bedtime. The patient has had decreased p.o. intake uptitrate insulin as neede d. Acute on chronic kidney injury stage III: -Most likely secondary to point #1 and number 2. -Baseline creatinine 1.7 2 -Renally dose medications -Avoid nephrotoxic agents DVT prophylaxis: In place Yo Gonzales MD 8:12 AM 01/07/2020 Antonino Acuña, PharmD - 01/06/2020 5:16 AM PDT . RENAL DOSE ADJUSTMENT PER PHARMACY PROTOCOL: Subjective/Objective: Brooks Marquez is a 29 y.o. year old male admitted on 01/06/2020 2:27 AM and is receiving FAM OTIDINE BP 125/88 | Pulse 108 | Temp 34 C (93.2 F) | Resp 11 | Wt 74.5 kg (164 lb 3.9 oz) | SpO2 100% | BMI 20.53 kg/m No intake or output data in the 24 hours ending 01/06/20 0516 Recent Labs Lab 01/06/20 0328 CREA 4.16* Estimated Creatinine Clearance: 27 mL/min (A) (based on SCr of 4.16 mg/dL (H)). Date Day of therapy Creatinine CrCl (mL/min) Dose-current Dose-new 01/06/20 1 4.16 27 20 mg q12hr 20 mg q24hr Assessment/Plan: 1. For creatinine clearance 27 mL/min, decrease dose of FAMOTIDINE as above. Decrease furth er to q48hr if renal function does not improve above 30 mL/min. 2. Pharmacy will continue to follow and adjust dose as appropriate to clinical condition an d creatinine clearance changes RENAL DOSE ADJUSTMENT PROTOCOL Electronically signed by: Antonino Saavedra, PharmD 01/06/2020 5:16 AM documented in this encounter Plan of Treatment + + +--------+ + + | Name | Type | Priori | Associated Diagnoses | Order Schedule | | | | ty | | | + + +--------+ + + | Referral to Home | Outpatient | Routin | Diabetic ulcer of | Ordered: 01/10/2020 | | Health | Referral | e | left foot associated | | | | | | with type 1 | | | | | | diabetes mellitus, | | | | | | unspecified part of | | | | | | foot, unspecified | | | | | | ulcer stage (HCC) | | | | | | Generalized weakness | | + + +--------+ + + [...] documented in this encounter Results POC Glucose (01/10/2020 11:36 AM PDT) + +-------+ + + + [...] [address] | Lety Davidson MD | [phone] | | [facility] | | [address] | | | - LABORATORY | | | | + + + + + POC Glucose (01/10/2020 11:03 AM PDT) + +--------+ + + + | Component | Value | Ref Range | Performed | Pathologist | | | | | At | Signature | + +--------+ + + + | Glucose, | 57 (L) | 70 - 109 mg/dL | [...] [address] | [place] | [phone] | | [facility] | | [address] | | | - LABORATORY | | | | + + + + + POC Glucose (01/10/2020 6:54 AM PDT) + +-------+ + + + | Component | Value | Ref Range | Performed | Pathologist | | | | | At | Signature | + +-------+ + + + | Glucose, | 83 | 70 - 109 mg/dL | [facility] + | [facility] | [address] | [place] | [phone] | | [facility] | | [address] | | | - LABORATORY | | | | + + + + + CBC with Differential (01/10/2020 4:33 AM PDT) + + + + + + | Component | Value | Ref Range | Performed | Pathologist | | | | | At | Signature | + + + + + + | WBC | 6.7 | 4.0 - 11.0 K/uL | [facility] | | | | | | [facility] | | | | | | [facility] | | | | | [facility] - | | | | | | LABORATORY | | + + + + + + | RBC | 2.94 (L) | 4.30 - 5.70 | [facility] | | | | | M/uL | [facility] | | | | | [facility] | | | | | | [facility] - | | | | | | LABORATORY | | + + + + + + | Hemoglobin | 8.8 (L) | 13.5 - 18.0 | [facility] | | | | | g/dL | [facility] | | | | | | [facility] | | | | | | CENTER - | | | | | | LABORATORY | | + + + + + + | Hematocrit | 27.3 (L) | 40.0 - 51.0 % | [facility] | | | | | | [facility] | | | | | | [facility] | | | | | | C[facility] - | | | | | | LABORATORY | | + + + + + + | MCV | 92.9 | 83.0 - 101.0 fL | [facility] [...] + + + + | MCHC | 32.2 | 32.0 - 36.0 | [facility] | | | | | g/dL | [facility] | | | | | | [facility] | | | | | | CENTER - | | | | | | LABORATORY | | + + + + + + | RDW-CV | 15.7 (H) | <15.0 % | [facility] | | | | | | [facility] | | | [facility] | | [facility] | | | | | | [facility] - | | | | | | LABORATORY | | + + + + + + | RDW-SD | 52.8 (H) | 35.1 - 46.3 fL | [facility] | | | | | | [facility] | | | | | | [facility] | | | | | | CENTER - | | | | | | LABORATORY | | + + + + + + | Platelet | 193 | 140 - 440 K/uL | [facility] [...] + + + + | Immature | 8.7Comment: Low PLT + | 0.9 - 11.2 [...] + + + + | % | 59.2 | 45.0 - 82.0 % | [facility] | | | Neutrophils | | | [facility] | | | | | | [facility] | | | | | | CENTER - | | | | | | LABORATORY | | + + + + + + | % | 27.2 | 20.0 - 45.0 % | [facility] | | | Lymphocytes | | | [facility] | | | | | | [facility] | | | | | | CENTER - | | | | | | LABORATORY | | + + + + + + | % Monocytes | 6.8 | 4.0 - 12.0 % | [facility] | | | | | | [facility] | | | | | | [facility] | | | | | | CENTER - | | | | | | LABORATORY | | + + + + + + | % | 4.9 | 0.0 - 5.0 % | [facility] | | | Eosinophils | | | [facility] | | | | | | [facility] | | | | | | CENTER - | | | | | | LABORATORY | | + + + + + + | % Basophils | 1.6 (H) | 0.0 - 1.0 % | [facility] [...] + + + + | Absolute | 3.98 | 1.80 - 8.50 | [facility] | | | Neutrophils | | K/uL | [facility] | | | | | | [facility] | | | | | | CENTER - | | | | | | LABORATORY | | + + + + + + | Absolute | 1.83 | 0.60 - 3.20 | [facility] | | | Lymphocytes | | K/uL | [facility] | | | | | | [facility] | | | | | | CENTER - | | | | | | LABORATORY | | + + + + + + | Absolute | 0.46 | 0.00 - 1.00 | [facility] | | | Monocytes | | K/uL | [facility] | | | | | | [facility] | | | | | | CENTER - | | | | | | LABORATORY | | + + + + + + | Absolute | 0.33 | 0.00 - 0.40 | [facility] | | | Eosinophils | | K/uL | [facility] | | | | | | [facility]ICAL | | | | | | CENTER - | | | | | | LABORATORY | | + + + + + + | Absolute | 0.11 (H) | 0.00 - 0.10 | [facility] | | | Basophils | | K/uL | [facility] | | | | | | [facility] | | | | | | CENTER - | | | | | | LABORATORY | | + + + + + + | Absolute | 0.02 | 0.00 - 0.03 | [facility] | [...] | | | | WBCs | [facility] | | | | [...] [address] | [place] | [phone] | | [facility] | | [address] | | | - LABORATORY | | | | + + + + + Magnesium (01/10/2020 4:33 AM PDT) + +-------+ + + + | Component | Value | Ref Range | Performed | Pathologist | | | | | At | Signature | + +-------+ + + + | Magnesium | 1.6 | 1.6 - 2.6 mg/dL | [facility] [...] + | [facility] | [address] | [place] | [phone] | | [facility] | | [address] | | | - LABORATORY | | | | + + + + + Basic Metabolic Panel (01/10/2020 4:33 AM PDT) + + + + + + | Component | Value | Ref Range | Performed | Pathologist | | | | | At | Signature | + + + + + + | Na | 145 | 136 - 145 | [facility] | [...] + + + + | Glucose | 125 (H) | 60 - 106 mg/dL | [...] + + + + | Creatinine | 2.67 (H) | 0.70 - 1.30 | [facility] | | | | | mg/dL | [facility] | | | | | | MEDICAL | | | | | | CENTER - | | | | | | LABORATORY | | + + + + + + | eGFR if not | 28 (L)Comment: | >=60 | [facility] | | | | GLOMERULAR FILTRATION | mL/min/1.73m2 | [facility] | | | [place] | RATE,ESTIMATED | | MEDICAL | | | | mL/min/1.67k4Qght than | | CENTER - | | [...] + + + + | Calcium | 7.9 (L) | 8.7 - 10.4 | [facility] | | | | | mg/dL | [facility] | | | | | | MEDICAL | | | | | | CENTER - | | | | | | LABORATORY | | + + + + + + | BUN/Creatin | 16.1 | | [facility] | | | ine [...] [address] | [place] | [phone] | | [facility] | | [address] | | | - LABORATORY | | | | + + + + + POC Glucose (01/09/2020 10:07 PM PDT) + +---------+ + + + | Component | Value | Ref Range | Performed | Pathologist | | | | | At | Signature | + +---------+ + + + | Glucose, | 212 (H) | 70 - 109 mg/dL | [...] + + | Performing | Address | City/State[facility] | Phone Number | | Organization | | | | + + + + + | [facility] | [address] | [place] | [phone] | | [facility] | | [address] | | | - LABORATORY | | | | + + + + + POC Glucose (01/09/2020 5:49 PM PDT) + +---------+ + + + | Component | Value | Ref Range | Performed | Pathologist | | | | | At | Signature | + +---------+ + + + | Glucose, | 264 (H) | 70 - 109 mg/dL | [...] [address] | [place] | [phone] | | [facility] | | [address] | | | - LABORATORY | | | | + + + + + POC Glucose (01/09/2020 12:44 PM PDT) + +---------+ + + + | Component | Value | Ref Range | Performed | Pathologist | | | | | At | Signature | + +---------+ + + + | Glucose, | 141 (H) | 70 - 109 mg/dL | [...] [address] | [place] | [phone] | | [facility] | | [address] | | | - LABORATORY | | | | + + + + + POC Glucose (01/09/2020 6:46 AM PDT) + +---------+ + + + | Component | Value | Ref Range | Performed | Pathologist | | | | | At | Signature | + +---------+ + + + | Glucose, | 114 (H) | 70 - 109 mg/dL | [...] [address] | Lety Davidson MD | [phone] | | [facility] | | [address] | | | - LABORATORY | | | | + + + + + CBC with Differential (01/09/2020 4:40 AM PDT) + + + + + + | Component | Value | Ref Range | Performed | Pathologist | | | | | At | Signature | + + + + + + | WBC | 5.7 | 4.0 - 11.0 K/uL | [facility] | | | | | | [facility] | | | | | | [facility]ICAL | | | | | | CENTER - | | | | | | LABORATORY | | + + + + + + | RBC | 2.72 (L) | 4.30 - 5.70 | [facility] | | | | | M/uL | [facility] | | | | | | MEDICAL | | | | | | CENTER - | | | | | | LABORATORY | | + + + + + + | Hemoglobin | 8.2 (L) | 13.5 - 18.0 | [facility] | | | | | g/dL | [facility] | | | | | | MEDICAL | | | | | | CENTER - | | | | | | LABORATORY | | + + + + + + | Hematocrit | 25.5 (L) | 40.0 - 51.0 % | [facility] | | | | | | [facility] | | | | | | [facility] | | | | | | CENTER - | | | | | | LABORATORY | | + + + + + + | MCV | 93.8 | 83.0 - 101.0 fL | [facility] | | | | | | [facility] | | | | | | [facility]ICAL | | | | | | CENTER - | | | | | | LABORATORY | | + + + + + + | MCH | 30.1 | 28.0 - 35.0 pg | [facility] | | | | | | [facility] | | | | | | [facility] | | | | | | CENTER - | | | | | | LABORATORY | | + + + + + + | MCHC | 32.2 | 32.0 - 36.0 | [facility] | | | | | g/dL | [facility] | | | | | | [facility] | | | | | | CENTER - | | | | | | LABORATORY | | + + + + + + | RDW-CV | 16.1 (H) | <15.0 % | [facility] | | | | | | [facility] | | | | | | [facility] | | | | | | C[facility] - | | | | | | LABORATORY | | + + + + + + | RDW-SD | 55.0 (H) | 35.1 - 46.3 fL | [facility] | | | | | | [facility] | | | | | | [facility] | | | | | | CENTER - | | | | | | LABORATORY | | + + + + + + | Platelet | 173 | 140 - 440 K/uL | [facility] | | | Count | | | [facility] | | | | | | [facility] | | | | | | CENTER - | | | | | | LABORATORY | | + + + + + + | MPV | 13.0 (H) | 6.5 - 12.4 fL | [facility] | | | | | | [facility] | | | | | | [facility]ICAL | | | | | | CENTER - | | | | | | LABORATORY | | + + + + + + | Immature | 8.7Comment: Low PLT + | 0.9 - 11.2 % | [facility] | | | Platelet | Low IPF are consistent | | [facility] | | | Fraction | with a production | | MEDICAL | | | | disorder. Low PLT + High | | CENTER - | | | | IPF are consistent with | | LABORATORY | | | | increased platelet | | | | | | destruction. | | | | + + + + + + | % | 56.5 | 45.0 - 82.0 % | [facility] | | | Neutrophils | | | [facility] | | | | | | MEDICAL | | | | | | CENTER - | | | | | | LABORATORY | | + + + + + + | % | 26.1 | 20.0 - 45.0 % | [facility] | | | Lymphocytes | | | [facility] | | | | | | MEDICAL | | | | | | CENTER - | | | | | | LABORATORY | | + + + + + + | % Monocytes | 8.3 | 4.0 - 12.0 % | [facility] | | | | | | [facility] | | | | | | MEDICAL | | | | | | CENTER - | | | | | | LABORATORY | | + + + + + + | % | 6.9 (H) | 0.0 - 5.0 % | [facility] | | | Eosinophils | | | [facility] | | | | | | MEDICAL | | | | | | CENTER - | | | | | | LABORATORY | | + + + + + + | % Basophils | 1.8 (H) | 0.0 - 1.0 % | [facility] [...] + + + + | Absolute | 3.20 | 1.80 - 8.50 | [facility] | | | Neutrophils | | K/uL | [facility] | | | | | | MEDICAL | | | | | | CENTER - | | | | | | LABORATORY | | + + + + + + | Absolute | 1.48 | 0.60 - 3.20 | [facility] | | | Lymphocytes | | K/uL | [facility] | | | | | | MEDICAL | | | | | | CENTER - | | | | | | LABORATORY | | + + + + + + | Absolute | 0.47 | 0.00 - 1.00 | [facility] | | | Monocytes | | K/uL | [facility] | | | | | | MEDICAL | | | | | | CENTER - | | | | | | LABORATORY | | + + + + + + | Absolute | 0.39 | 0.00 - 0.40 | [facility] | [...] + + + + | Absolute | 0.02 | 0.00 - 0.03 | [facility] | [...] [address] | [place] | [phone] | | [facility] | | [address] | | | - LABORATORY | | | | + + + + + Magnesium (01/09/2020 4:40 AM PDT) + +-------+ + + + | Component | Value | Ref Range | Performed | Pathologist | | | | | At | Signature | + +-------+ + + + | Magnesium | 1.7 | 1.6 - 2.6 mg/dL | [facility] | | | | | | [facility] | | | | | | [facility] [...] [address] | Lety Davidson MD | [phone] | | [facility] | | [address] | | | - LABORATORY | | | | + + + + + Basic Metabolic Panel (01/09/2020 4:40 AM PDT) + + + + + [...] + + + + | BUN | 46 (H) | 9 - 23 mg/dL | [facility] | | | | | | [facility] | | | | | | MEDICAL | | | | | | CENTER - | | | | | | LABORATORY | | + + + + + + | Creatinine | 2.91 (H) | 0.70 - 1.30 | [facility] | | | | | mg/dL | [facility] | | | | | | MEDICAL | | | | | | CENTER - | | | | | | LABORATORY | | + + + + + + | eGFR if not | 26 (L)Comment: | >=60 | [facility] | | | | GLOMERULAR FILTRATION | mL/min/1.73m2 | [facility] | | | [place] | RATE,ESTIMATED | | MEDICAL | | | | mL/min/1.31j9Ypfs than | | CENTER - | | [...] | | | | mg/dL | [facility] | | | | | | [facility] | | | | | | CENTER - | | | | | | LABORATORY | | + + + + + + | BUN/Creatin | 15.8 | | [facility] | | | ine [...] + | [facility] | [address] | [place] | [phone] | | [facility] | | [address] | | | - LABORATORY | | | | + + + + + POC Glucose (01/08/2020 9:22 PM PDT) + +---------+ + + + [...] + | [facility] | [address] | Lety Davidson [place] | [phone] | | [facility] | | [address] | | | - LABORATORY | | | | + + + + + POC Glucose (01/08/2020 4:20 PM PDT) + +---------+ + + + | Component | Value | Ref Range | Performed | Pathologist | | | | | At | Signature | + +---------+ + + + | Glucose, | 216 (H) | 70 - 109 mg/dL | [facility] | | | POC | | | [facility] | | | | | | MEDICAL [...] | + + + + + | [facility] | [address] | [place] | [phone] | | [facility] | | [address] | | | - LABORATORY | | | | + + + + + POC Glucose (01/08/2020 12:05 PM PDT) + +---------+ + + + | Component | Value | Ref Range | Performed | Pathologist | | | | | At | Signature | + +---------+ + + + | Glucose, | 162 (H) | 70 - 109 mg/dL | [...] + | [facility] | [address] | [place] | [phone] | | [facility] | | [address] | | | - LABORATORY | | | | + + + + + POC Glucose (01/08/2020 6:07 AM PDT) + +---------+ + + + [...] [address] | [place] | [phone] | | [facility] | | [address] | | | - LABORATORY | | | | + + + + + Renal Function Panel (01/08/2020 4:44 AM PDT) + + + + + [...] + + + | Cl | 115 (H) | 98 - 107 mmol/L | [facility] | | | | | [facility] | | | | | | MEDICAL | | | | | | CENTER - | | | | | | LABORATORY | | + + + + + + | CO2 | 19 (L) | 20 - 31 mmol/L | [...] + + + + | Glucose | 122 (H) | 60 - 106 mg/dL | [facility] | | | | | | [facility] | | | | | | MEDICAL | | | | | | CENTER - | | | | | | LABORATORY | | + + + + + + | BUN | 49 (H) | 9 - 23 mg/dL | [facility] | | | | | | [facility] | | | | | | MEDICAL | | | | | | CENTER - | | | | | | LABORATORY | | + + + + + + | Creatinine | 3.32 (H) | 0.70 - 1.30 | [facility] | | | | | mg/dL | [facility] | | | | | | MEDICAL | | | | | | CENTER - | | | | | | LABORATORY | | + + + + + + | eGFR if not | 22 (L)Comment: | >=60 | [facility] | | | | GLOMERULAR FILTRATION | mL/min/1.73m2 | [facility] | | | [place] | RATE,ESTIMATED | | MEDICAL | | | | mL/min/1.24e3Qlyx than | | CENTER - | | [...] + + + + | Albumin | 2.4 (L) | 3.2 - 4.8 g/dL | [facility] | | | | | | [facility] | | | | | | [facility] | | | | | | CENTER - | | | | | | LABORATORY | | + + + + + + | Phosphorus | 5.3 (H) | 2.4 - 5.1 mg/dL | [...] [address] | [place] | [phone] | | [facility] | | [address] | | | - LABORATORY | | | | + + + + + CBC with Differential (01/08/2020 4:44 AM PDT) + + + + + + | Component | Value | Ref Range | Performed | Pathologist | | | | | At | Signature | + + + + + + | WBC | 7.8 | 4.0 - 11.0 K/uL | [facility] | | | | | | [facility] | | | | | | MEDICAL | | | | | | CENTER - | | | | | | LABORATORY | | + + + + + + | RBC | 2.77 (L) | 4.30 - 5.70 | [facility] | | | | | M/uL | [facility] | | | | | | MEDICAL | | | | | | CENTER - | | | | | | LABORATORY | | + + + + + + | Hemoglobin | 8.2 (L) | 13.5 - 18.0 | [facility] | | | | | g/dL | [facility] | | | | | | MEDICAL | | | | | | CENTER - | | | | | | LABORATORY | | + + + + + + | Hematocrit | 25.4 (L) | 40.0 - 51.0 % | [facility] | | | | | | [facility] | | | | | | MEDICAL | | | | | | CENTER - | | | | | | LABORATORY | | + + + + + + | MCV | 91.7 | 83.0 - 101.0 fL | [facility] [...] + + + + | MCHC | 32.3 | 32.0 - 36.0 | [facility] | | | | | g/dL | [facility] | | | | | | MEDICAL | | | | | | CENTER - | | | | | | LABORATORY | | + + + + + + | RDW-CV | 16.1 (H) | <15.0 % | [facility] | [...] + + + + | Platelet | 192 | 140 - 440 K/uL | [facility] | | | Count | | | [facility] | | | | | | MEDICAL | | | | | | CENTER - | | | | | | LABORATORY | | + + + + + + | MPV | 13.3 (H) | 6.5 - 12.4 fL | [facility] | | | | | | [facility] | | | | | | MEDICAL | | | | | | CENTER - | | | | | | LABORATORY | | + + + + + + | Immature | 7.5Comment: Low PLT + | 0.9 - 11.2 % | [facility] | | | Platelet | Low IPF are consistent | | [facility] | | | Fraction | with a production | | MEDICAL | | | | disorder. Low PLT + High | | CENTER - | | | | IPF are consistent with | | LABORATORY | | | | increased platelet | | | | | | destruction. | | | | + + + + + + | % | 64.6 | 45.0 - 82.0 % | [facility] | | | Neutrophils | | | [facility] | | | | | | MEDICAL | | | | | | CENTER - | | | | | | LABORATORY | | + + + + + + | % | 23.1 | 20.0 - 45.0 % | [facility] [...] + + | % | 4.4 | 0.0 - 5.0 % | [facility] | | | Eosinophils | | | [facility] | | | | | | MEDICAL | | | | | | CENTER - | | | | | | LABORATORY | | + + + + + + | % Basophils | 1.7 (H) | 0.0 - 1.0 % | [facility] [...] | | Granulocyte | | | [facility] | | | s | | | MEDICAL | | | | | | CENTER - | | | | | | LABORATORY | | + + + + + + | Absolute | 5.03 | 1.80 - 8.50 | [facility] | | | Neutrophils | | K/uL | [facility] | | | | | | MEDICAL | | | | | | CENTER - | | | | | | LABORATORY | | + + + + + + | Absolute | 1.80 | 0.60 - 3.20 | [facility] | | | Lymphocytes | | K/uL | [facility] | | | | | | MEDICAL | | | | | | CENTER - | | | | | | LABORATORY | | + + + + + + | Absolute | 0.45 | 0.00 - 1.00 | [facility] | | | Monocytes | | K/uL | [facility] | | | | | | MEDICAL | | | | | | CENTER - | | | | | | LABORATORY | | + + + + + + | Absolute | 0.34 | 0.00 - 0.40 | [facility] | | | Eosinophils | | K/uL | [facility] | | | | | | [facility] | | | | | | CENTER - | | | | | | LABORATORY | | + + + + + + | Absolute | 0.13 (H) | 0.00 - 0.10 | [facility] | | | Basophils | | K/uL | [facility] | | | | | | [facility]ICAL | | | | | | CENTER - | | | | | | LABORATORY | | + + + + + + | Absolute | 0.03 | 0.00 - 0.03 | [facility] | [...] | | | | WBCs | [facility] | | | | [...] [address] | [place] | [phone] | | [facility] | | [address] | | | - LABORATORY | | | | + + + + + Magnesium (01/08/2020 4:44 AM PDT) + +-------+ + + + | Component | Value | Ref Range | Performed | Pathologist | | | | | At | Signature | + +-------+ + + + | Magnesium | 1.7 | 1.6 - 2.6 mg/dL | [facility] | | | | | | [facility] | | | [...] [address] | [place] | [phone] | | [facility] | | [address] | | | - LABORATORY | | | | + + + + + POC Glucose (01/07/2020 11:38 PM PDT) + +---------+ + + + | Component | Value | Ref Range | Performed | Pathologist | | | | | At | Signature | + +---------+ + + + | Glucose, | 138 (H) | 70 - 109 mg/dL | [...] [address] | [place] | [phone] | | [facility] | | [address] | | | - LABORATORY | | | | + + + + + POC Glucose (01/07/2020 8:26 PM PDT) + +-------+ + + + | Component | Value | Ref Range | Performed | Pathologist | | | | | At | Signature | + +-------+ + + + | Glucose, | 96 | 70 - 109 mg/dL | [facility] [...] + | [facility] | [address] | [place] | [phone] | | [facility] | | [address] | | | - LABORATORY | | | | + + + + + POC Glucose (01/07/2020 6:30 PM PDT) + +-------+ + + + | Component | Value | Ref Range | Performed | Pathologist | | | | | At | Signature | + +-------+ + + + | Glucose, | 70 | 70 - 109 mg/dL | [facility] [...] + | [facility] | [address] | [place] | [phone] | | [facility] | | [address] | | | - LABORATORY | | | | + + + + + POC Glucose (01/07/2020 5:07 PM PDT) + +--------+ + + + | Component | Value | Ref Range | Performed | Pathologist | | | | | At | Signature | + +--------+ + + + | Glucose, | 60 (L) | 70 - 109 mg/dL | [...] ST. | [address] | [place] | [phone] | | [facility] | | [address] | | | - LABORATORY | | | | + + + + + [facility] STAT instructions for [...] | | | + +---------+ + + Coronavirus (COVID-19) NAAT (01/07/2020 2:47 PM PDT) + + + + + + | Component | Value | Ref Range | Performed | Pathologist | | | | | At | Signature | + + + + + + | SARS | Not DetectedComment: See | Not Detected | [facility] | | | coronavirus | Scanned Report | | | | | 2 RNA | | | | | + + + + + + + + | Specimen | + + | Tissue - Entire | | nasopharynx (body | | structure) | + + + + + | Narrative | Performed At | + + + | | | + + + + +---------+ + + | Performing | Address | City/State/Zipcode | Phone Number | | Organization | | | | + +---------+ + + | [facility] | | | | + +---------+ + + POC Glucose (01/07/2020 1:10 PM PDT) + +-------+ + + + | Component | Value | Ref Range | Performed | Pathologist | | | | | At | Signature | + +-------+ + + + | Glucose, | 84 | 70 - 109 mg/dL | [facility] [address] | [place] | [phone] | | [facility] | | [address] | | | - LABORATORY | | | | + + + + + POC Glucose (01/07/2020 12:35 PM PDT) + +--------+ + + + | Component | Value | Ref Range | Performed | Pathologist | | | | | At | Signature | + +--------+ + + + | Glucose, | 48 (L) | 70 - 109 mg/dL | [...] + | [facility] | [address] | [place] | [phone] | | [facility] | | [address] | | | - LABORATORY | | | | + + + + + POC Glucose (01/07/2020 12:25 PM PDT) + +--------+ + + + | Component | Value | Ref Range | Performed | Pathologist | | | | | At | Signature | + +--------+ + + + | Glucose, | 41 (L) | 70 - 109 mg/dL | [facility] | | | POC | | | [facility] | | | | | | [...] + | [facility] | [address] | [place] | [phone] | | [facility] | | [address] | | | - LABORATORY | | | | + + + + + POC Glucose (01/07/2020 8:28 AM PDT) + +-------+ + + + | Component | Value | Ref Range | Performed | Pathologist | | | | | At | Signature | + +-------+ + + + | Glucose, | 80 | 70 - 109 mg/dL | [facility] [...] [address] | [place] | [phone] | | [facility] | | [address] | | | - LABORATORY | | | | + + + + + POC Glucose (01/07/2020 5:22 AM PDT) + +-------+ + + + | Component | Value | Ref Range | Performed | Pathologist | | | | | At | Signature | + +-------+ + + + | Glucose, | 105 | 70 - 109 mg/dL | [facility] [address] | [place] | [phone] | | [facility] | | [address] | | | - LABORATORY | | | | + + + + + Phosphorus (01/07/2020 4:42 AM PDT) + +---------+ + + + | Component | Value | Ref Range | Performed | Pathologist | | | | | At | Signature | + +---------+ + + + | Phosphorus | 6.1 (H) | 2.4 - 5.1 mg/dL | [...] | [address] | [place] | [phone] | | [facility] | | [address] | | | - LABORATORY | | | | + + + + + Magnesium (01/07/2020 4:42 AM PDT) + +-------+ + + + | Component | Value | Ref Range | Performed | Pathologist | | | | | At | Signature | + +-------+ + + + | Magnesium | 1.8 | 1.6 - 2.6 mg/dL | [facility] | | | | [...] + | [facility] | [address] | [place] | [phone] | | [facility] | | [address] | | | - LABORATORY | | | | + + + + + Comprehensive Metabolic Panel (01/07/2020 4:42 AM PDT) + + + + + [...] + | CO2 | 19 (L) | 20 - 31 mmol/L | [...] + + + + | Glucose | 132 (H) | 60 - 106 mg/dL | [facility] | | | | | [facility] | [facility] | [facility] | [facility] | | | | | [facility] - | | | | | | LABORATORY | | + + + + + + | BUN | 58 (H) | 9 - 23 mg/dL | [facility] | | | | | | [facility] | | | | | | [facility] | | | | | | CENTER - | | | | | | LABORATORY | | + + + + + + | Creatinine | 3.76 (H) | 0.70 - 1.30 | [facility] | | | | | mg/dL | [facility] | | | | | | [facility] | | | | | | CENTER - | | | | | | LABORATORY | | + + + + + + | eGFR if not | 19 (L)Comment: | >=60 | [facility] | | | | GLOMERULAR FILTRATION | mL/min/1.73m2 | [facility] | | | [place] | RATE,ESTIMATED | | MEDICAL | | | | mL/min/1.76e2Jfoi than | | CENTER - | | [...] | | | | | mg/dL | [facility] | | | | | | MEDICAL | | | | | | CENTER - | | | | | | LABORATORY | | + + + + + + | Albumin | 2.4 (L) | 3.2 - 4.8 g/dL | [...] | | Total | | | [facility] | | | [facility] | [facility] | | | | | | CENTER - | | | | | | LABORATORY | | + + + + + + | Total | 4.5 (L) | 5.7 - 8.2 g/dL | [facility] | | | Protein | | | [facility] | | | [facility] | | [facility] | | | | | | CENTER - | | | | | | LABORATORY | | + + + + + + | AST | 27 | 0 - 34 U/L | [facility] | | | | | | [facility] | | | | [facility] | [facility] | | | | | | CENTER - | | | | | | LABORATORY | | + + + + + + | ALT | 29 | 10 - 49 U/L | [facility] | | | | | [facility] | | | | [facility] | [facility] | | | | | | CENTER - | | | | | | LABORATORY | | + + + + + + | Alkaline | 129 (H) | 46 - 116 U/L | [facility] | | | Phosphatase | | | [facility] | | | | | | MEDICAL | | | | | | CENTER - | | | | | | LABORATORY | | + + + + + + | Globulin | 2.1 | 2.1 - 3.8 g/dL | [facility] | | | | | [facility] | | | | [facility] | [facility]ICAL | | | | | | CENTER - | | | | | | LABORATORY | | + + + + + + | Albumin/Maria Del Carmen | 1.1 | 0.8 - 1.9 | [facility] | | | bulin Ratio | | | [facility] | | | | | | MEDICAL | | | | | | CENTER - | | | | | | LABORATORY | | + + + + + + | BUN/Creatin | 15.4 | | [facility] | | | ine [...] [address] | [place] | [phone] | | [facility] | | [address] | | | - LABORATORY | | | | + + + + + Procalcitonin (01/07/2020 4:42 AM PDT) + + + + + + | Component | Value | Ref Range | Performed | Pathologist | | | | | At | Signature | + + + + + + | Procalciton | 1.33 (H) | <=0.50 ng/mL | [facility] | | | in | | | [facility] | | | | | | MEDICAL | | | | | | CENTER - | | | | | | LABORATORY | | + + + + + + | Comment | Comment: < 0.50 | | [facility] | | | | ng/mL:Procalcitonin | | [facility] | | | | levels below 0.50 [...] [address] | [place] | [phone] | | [facility] | | [address] | | | - LABORATORY | | | | + + + + + CBC with Differential (01/07/2020 4:42 AM PDT) + + + + + + | Component | Value | Ref Range | Performed | Pathologist | | | | | At | Signature | + + + + + + | WBC | 11.8 (H) | 4.0 - 11.0 K/uL | [facility] | | | | | [facility] | | | | | | MEDICAL | | | | | | CENTER - | | | | | | LABORATORY | | + + + + + + | RBC | 2.78 (L) | 4.30 - 5.70 | [facility] | | | | | M/uL | [facility] | | | | | | MEDICAL | | | | | | CENTER - | | | | | | LABORATORY | | + + + + + + | Hemoglobin | 8.3 (L) | 13.5 - 18.0 | [facility] | | | | | g/dL | [facility] | | | | | | MEDICAL | | | | | | CENTER - | | | | | | LABORATORY | | + + + + + + | Hematocrit | 25.3 (L) | 40.0 - 51.0 % | [facility] | | | | | | [facility] | | | | | | MEDICAL | | | | | | CENTER - | | | | | | LABORATORY | | + + + + + + | MCV | 91.0 | 83.0 - 101.0 fL | [facility] [...] + + + + | RDW-CV | 15.4 (H) | <15.0 % | [facility] | | | | | [facility] | | | | | | MEDICAL | | | | | | CENTER - | | | | | | LABORATORY | | + + + + + + | RDW-SD | 51.3 (H) | 35.1 - 46.3 fL | [facility] | | | | | | [facility] | | | | | | MEDICAL | | | | | | CENTER - | | | | | | LABORATORY | | + + + + + + | Platelet | 135 (L) | 140 - 440 K/uL | [facility] | | | Count | | | [facility] | | | | | | MEDICAL | | | | | | CENTER - | | | | | | LABORATORY | | + + + + + + | MPV | 13.7 (H) | 6.5 - 12.4 fL | [...] report due to abnormal | | [facility] | | | Fraction | platelet flag | | MEDICAL | | | | | | CENTER - | | | | | | LABORATORY | | + + + + + + | % | 77.5 | 45.0 - 82.0 % | [facility] | | | Neutrophils | | | [facility] | | | | | | MEDICAL | | | | | | CENTER - | | | | | | LABORATORY | | + + + + + + | % | 11.9 (L) | 20.0 - 45.0 % | [facility] | | | Lymphocytes | | | [facility] | | | | | | MEDICAL | | | | | | CENTER - | | | | | | LABORATORY | | + + + + + + | % Monocytes | 6.0 | 4.0 - 12.0 % | [facility] | | | | | | [facility] | | | | | | MEDICAL | | | | | | CENTER - | | | | | | LABORATORY | | + + + + + + | % | 2.8 | 0.0 - 5.0 % | [facility] | | | Eosinophils | | | [facility] | | | | | | MEDICAL | | | | | | CENTER - | | | | | | LABORATORY | | + + + + + + | % Basophils | 1.2 (H) | 0.0 - 1.0 % | [facility] [...] | Preliminary studies have | | [facility] | | | s | indicated the IG% | | MEDICAL | | | | and/or IG# show promise | | CENTER - | | | | as an early indicator | | LABORATORY | | | | for infection. | | | | + + + + + + | Absolute | 9.12 (H) | 1.80 - 8.50 | [facility] | | | Neutrophils | | K/uL | [facility] | | | | | | MEDICAL | | | | | | CENTER - | | | | | | LABORATORY | | + + + + + + | Absolute | 1.40 | 0.60 - 3.20 | [facility] | | | Lymphocytes | | K/uL | [facility] | | | | | | MEDICAL | | | | | | CENTER - | | | | | | LABORATORY | | + + + + + + | Absolute | 0.70 | 0.00 - 1.00 | [facility] | | | Monocytes | | K/uL | [facility] | | | | | | MEDICAL | | | | | | CENTER - | | | | | | LABORATORY | | + + + + + + | Absolute | 0.33 | 0.00 - 0.40 | [facility] | | | Eosinophils | | K/uL | [facility] | | | | | | MEDICAL | | | | | | CENTER - | | | | | | LABORATORY | | + + + + + + | Absolute | 0.14 (H) | 0.00 - 0.10 | [facility] [...] | | | | WBCs | [facility] | | | | [...] [address] | [place] | [phone] | | [facility] | | [address] | | | - LABORATORY | | | | + + + + + POC Glucose (01/07/2020 4:26 AM PDT) + +---------+ + + + | Component | Value | Ref Range | Performed | Pathologist | | | | | At | Signature | + +---------+ + + + | Glucose, | 121 (H) | 70 - 109 mg/dL | [...] [address] | [place] | [phone] | | [facility] | | [address] | | | - LABORATORY | | | | + + + + + POC Glucose (01/07/2020 3:18 AM PDT) + +---------+ + + + | Component | Value | Ref Range | Performed | Pathologist | | | | | At | Signature | + +---------+ + + + | Glucose, | 133 (H) | 70 - 109 mg/dL | [...] + | [facility] | [address] | [place] | [phone] | | [facility] | | [address] | | | - LABORATORY | | | | + + + + + POC Glucose (01/07/2020 2:14 AM PDT) + +---------+ + + + | Component | Value | Ref Range | Performed | Pathologist | | | | | At | Signature | + +---------+ + + + | Glucose, | 140 (H) | 70 - 109 mg/dL | [...] + | [facility] | [address] | [place] | [phone] | | [facility] | | [address] | | | - LABORATORY | | | | + + + + + POC Glucose (01/07/2020 1:17 AM PDT) + +---------+ + + + | Component | Value | Ref Range | Performed | Pathologist | | | | | At | Signature | + +---------+ + + + | Glucose, | 122 (H) | 70 - 109 mg/dL | [facility] | | | POC | | | [facility] | | | | | | MEDICAL [...] | + + + + + | [facility] | [address] | [place] | [phone] | | [facility] | | [address] | | | - LABORATORY | | | | + + + + + Phosphorus (01/07/2020 12:20 AM PDT) + +---------+ + + + | Component | Value | Ref Range | Performed | Pathologist | | | | | At | Signature | + +---------+ + + + | Phosphorus | 6.2 (H) | 2.4 - 5.1 mg/dL | [facility] | | | | [...] + | [facility] | [address] | [place] | [phone] | | [facility] | | [address] | | | - LABORATORY | | | | + + + + + Magnesium (01/07/2020 12:20 AM PDT) + +-------+ + + + | Component | Value | Ref Range | Performed | Pathologist | | | | | At | Signature | + +-------+ + + + | Magnesium | 1.9 | 1.6 - 2.6 mg/dL | [facility] | | | | | | [facility] | | | [...] [address] | [place] | [phone] | | [facility] | | [address] | | | - LABORATORY | | | | + + + + + Basic Metabolic Panel (01/07/2020 12:20 AM PDT) + + + + + + | Component | Value | Ref Range | Performed | Pathologist | | | | | At | Signature | + + + + + + | Na | 139 | 136 - 145 | [facility] | [...] + + + + | Cl | 111 (H) | 98 - 107 mmol/L | [...] + + + + | Glucose | 119 (H) | 60 - 106 mg/dL | [facility] | | | | | | [facility] | | | | | | MEDICAL | | | | | | CENTER - | | | | | | LABORATORY | | + + + + + + | BUN | 61 (H) | 9 - 23 mg/dL | [facility] | | | | | | [facility] | | | | | | MEDICAL | | | | | | CENTER - | | | | | | LABORATORY | | + + + + + + | Creatinine | 3.93 (H) | 0.70 - 1.30 | [facility] | | | | | mg/dL | [facility] | | | | | | MEDICAL | | | | | | CENTER - | | | | | | LABORATORY | | + + + + + + | eGFR if not | 18 (L)Comment: | >=60 | [facility] | | | | GLOMERULAR FILTRATION | mL/min/1.73m2 | [facility] | | | [place] | RATE,ESTIMATED | | MEDICAL | | | | mL/min/1.24e1Omqd than | | CENTER - | | [...] + + + + | BUN/Creatin | 15.5 | | [facility] | | | ine [...] [address] | [place] | [phone] | | [facility] | | [address] | | | - LABORATORY | | | | + + + + + POC Glucose (01/07/2020 12:09 AM PDT) + +---------+ + + + | Component | Value | Ref Range | Performed | Pathologist | | | | | At | Signature | + +---------+ + + + | Glucose, | 116 (H) | 70 - 109 mg/dL | [...] + | [facility] | [address] | [place] | [phone] | | [facility] | | [address] | | | - LABORATORY | | | | + + + + + POC Glucose (01/06/2020 11:03 PM PDT) + +---------+ + + + | Component | Value | Ref Range | Performed | Pathologist | | | | | At | Signature | + +---------+ + + + | Glucose, | 116 (H) | 70 - 109 mg/dL | [...] [address] | [place] | [phone] | | [facility] | | [address] | | | - LABORATORY | | | | + + + + + POC Glucose (01/06/2020 10:08 PM PDT) + +-------+ + + + | Component | Value | Ref Range | Performed | Pathologist | | | | | At | Signature | + +-------+ + + + | Glucose, | 97 | 70 - 109 mg/dL | [facility] [...] [address] | [place] | [phone] | | [facility] | | [address] | | | - LABORATORY | | | | + + + + + POC Glucose (01/06/2020 9:07 PM PDT) + +---------+ + + + [...] [address] | [place] | [phone] | | [facility] | | [address] | | | - LABORATORY | | | | + + + + + Drugs of Abuse, Screen, Urine (01/06/2020 9:05 PM PDT) + + + + + + | Component | Value | Ref Range | Performed | Pathologist | | | | | At | Signature | + + + + + + | Amphetamine | Negative | Negative | [facility] | | | Screen, | | | [facility] | | | Urine | | | MEDICAL | | | | | | CENTER - | | | | | | LABORATORY | | + + + + + + | Barbiturate | Negative | Negative | [facility] | | | s Screen, | | | [facility] | | | Urine | | | MEDICAL | | | | | | CENTER - | | | | | | LABORATORY | | + + + + + + | Benzodiazep | Negative | Negative | [facility] | | | alan | | | [facility] | | | Screen, | | | MEDICAL | | | Urine | | | CENTER - | | | | | | LABORATORY | | + + + + + + | Cannabinoid | Positive (A) | Negative | [facility] | | | s Screen, | | | [facility] | | | Urine | | | MEDICAL | | | | | | CENTER - | | | | | | LABORATORY | | + + + + + + | Cocaine | Negative | Negative | [facility] | | | Screen, | | | [facility] | | | Urine | | | MEDICAL | | | | | | CENTER - | | | | | | LABORATORY | | + + + + + + | Methadone | Negative | Negative | [facility] | | | Screen, | | | [facility] | | | Urine | | | MEDICAL | | | | | | CENTER - | | | | | | LABORATORY | | + + + + + + | Opiates | Positive (A) | Negative | [facility] | | | Screen, | | | [facility] | | | Urine | | [...] [address] | [place] | [phone] | | [facility] | | [address] | | | - LABORATORY | | | | + + + + + Phosphorus (01/06/2020 8:22 PM PDT) + +---------+ + + + | Component | Value | Ref Range | Performed | Pathologist | | | | | At | Signature | + +---------+ + + + | Phosphorus | 6.7 (H) | 2.4 - 5.1 mg/dL | [...] [address] | [place] | [phone] | | [facility] | | [address] | | | - LABORATORY | | | | + + + + + Magnesium (01/06/2020 8:22 PM PDT) + +-------+ + + + | Component | Value | Ref Range | Performed | Pathologist | | | | | At | Signature | + +-------+ + + + | Magnesium | 1.8 | 1.6 - 2.6 mg/dL | [facility] | | | | [...] [address] | [place] | [phone] | | [facility] | | [address] | | | - LABORATORY | | | | + + + + + Basic Metabolic Panel (01/06/2020 8:22 PM PDT) + + + + + [...] + | CO2 | 19 (L) | 20 - 31 mmol/L | [...] + + + + | Glucose | 135 (H) | 60 - 106 mg/dL | [...] + + + + | Creatinine | 3.99 (H) | 0.70 - 1.30 | [facility] | | | | | mg/dL | [facility] | | | | | | MEDICAL | | | | | | CENTER - | | | | | | LABORATORY | | + + + + + + | eGFR if not | 18 (L)Comment: | >=60 | [facility] | | | | GLOMERULAR FILTRATION | mL/min/1.73m2 | [facility] | | | [place] | RATE,ESTIMATED | | MEDICAL | | | | mL/min/1.88o4Boib than | | CENTER - | | [...] + + + + | BUN/Creatin | 15.5 | | [facility] | | | ine [...] [address] | [place] | [phone] | | [facility] | | [address] | | | - LABORATORY | | | | + + + + + POC Glucose (01/06/2020 8:12 PM PDT) + +---------+ + + + | Component | Value | Ref Range | Performed | Pathologist | | | | | At | Signature | + +---------+ + + + | Glucose, | 124 (H) | 70 - 109 mg/dL | [...] + | [facility] | [address] | [place] | [phone] | | [facility] | | [address] | | | - LABORATORY | | | | + + + + + POC Glucose (01/06/2020 7:00 PM PDT) + +---------+ + + + | Component | Value | Ref Range | Performed | Pathologist | | | | | At | Signature | + +---------+ + + + | Glucose, | 124 (H) | 70 - 109 mg/dL | [...] + | [facility] | [address] | [place], [place] | [phone] | | [facility] | | [address] | | | - LABORATORY | | | | + + + + + POC Glucose (01/06/2020 6:06 PM PDT) + +---------+ + + + | Component | Value | Ref Range | Performed | Pathologist | | | | | At | Signature | + +---------+ + + + | Glucose, | 191 (H) | 70 - 109 mg/dL | [...] + + | Performing | Address | City/State[facility] | Phone Number | | Organization | | | | + + + + + | [facility] | [address] | [place] | [phone] | | [facility] | | [address] | | | - LABORATORY | | | | + + + + + POC Glucose (01/06/2020 5:00 PM PDT) + +---------+ + + + | Component | Value | Ref Range | Performed | Pathologist | | | | | At | Signature | + +---------+ + + + | Glucose, | 177 (H) | 70 - 109 mg/dL | [...] + | [facility] | [address] | [place] | [phone] | | [facility] | | [address] | | | - LABORATORY | | | | + + + + + Phosphorus (01/06/2020 4:08 PM PDT) + +---------+ + + + | Component | Value | Ref Range | Performed | Pathologist | | | | | At | Signature | + +---------+ + + + | Phosphorus | 7.1 (H) | 2.4 - 5.1 mg/dL | [facility] | | | | | | [facility] [...] [address] | [place] | [phone] | | [facility] | | [address] | | | - LABORATORY | | | | + + + + + Magnesium (01/06/2020 4:08 PM PDT) + +-------+ + + + | Component | Value | Ref Range | Performed | Pathologist | | | | | At | Signature | + +-------+ + + + | Magnesium | 1.9 | 1.6 - 2.6 mg/dL | [facility] | | | | [...] + | [facility] | [address] | [place] | [phone] | | [facility] | | [address] | | | - LABORATORY | | | | + + + + + Basic Metabolic Panel (01/06/2020 4:08 PM PDT) + + + + + [...] + + + | Anion Gap | 13 | 3 - 16 mmol/L | [facility] | | | | | | [facility] | | | | | | MEDICAL | | | | | | CENTER - | | | | | | LABORATORY | | + + + + + + | Glucose | 208 (H) | 60 - 106 mg/dL | [facility] | | | | | | [facility] | | | | | | MEDICAL | | | | | | CENTER - | | | | | | LABORATORY | | + + + + + + | BUN | 64 (H) | 9 - 23 mg/dL | [facility] | | | | | | [facility] | | | | | | MEDICAL | | | | | | CENTER - | | | | | | LABORATORY | | + + + + + + | Creatinine | 4.13 (H) | 0.70 - 1.30 | [facility] | | | | | mg/dL | [facility] | | | | | | MEDICAL | | | | | | CENTER - | | | | | | LABORATORY | | + + + + + + | eGFR if not | 17 (L)Comment: | >=60 | [facility] | | | | GLOMERULAR FILTRATION | mL/min/1.73m2 | [facility] | | | [place] | RATE,ESTIMATED | | MEDICAL | | | | mL/min/1.81a3Nzwt than | | CENTER - | | [...] + + + + | BUN/Creatin | 15.5 | | [facility] | | | ine [...] + | [facility] | [address] | [place] | [phone] | | [facility] | | [address] | | | - LABORATORY | | | | + + + + + POC Glucose (01/06/2020 4:06 PM PDT) + +---------+ + + + | Component | Value | Ref Range | Performed | Pathologist | | | | | At | Signature | + +---------+ + + + | Glucose, | 209 (H) | 70 - 109 mg/dL | [...] + | [facility] | [address] | [place], [place] | [phone] | | [facility] | | [address] | | | - LABORATORY | | | | + + + + + CT Chest Abdomen Pelvis wo Contrast (01/06/2020 3:25 PM PDT) + + | Specimen | + + | | + + + + + | Narrative | Performed At | + + + | CT CHEST ABDOMEN PELVIS WO CONTRAST 01/06/2020 3:02 PM HISTORY: | [facility] | | Cough Shortness of breath Cough, shortness of breath, | | | hydronephrosis, abdominal pain.. COMPARISON: Multiple priors. | | | PROTOCOL: Axial images of the chest, abdomen, and pelvis were | | | obtained. Coronal and sagittal reformations were acquired. | | | FINDINGS: Lack of intravenous contrast typically diminishes | | | sensitivity for assessment of solid organs and vascular structures. | | | CHEST Lungs, Pleura and Airways: Multiple small ground-glass | | | nodules identified within the lower lobes bilaterally. Small | | | bilateral pleural effusions, associated small amount of consolidation | | | involving the lung bases. Mediastinum: No cardiomegaly or | | | pericardial effusion. Aorta does not appear aneurysmal. Lymph | | | Nodes: No enlarged lymph nodes seen. ABDOMEN Solid organ | | | evaluation suboptimal without contrast. Liver and Biliary: Liver and | | | gallbladder appear unremarkable. Pancreas, Spleen and Adrenals: | | | Appear unremarkable. Kidneys: There are 4-5 nonobstructing left renal | | | calculi seen measuring up to 8 mm. No hydronephrosis seen. Right | | | kidney appears unremarkable. ABDOMEN AND PELVIS Bowel: Appendix | | | is not definitively seen. No bowel obstruction or ileus seen. | | | Vessels: Aorta does not appear aneurysmal. Lymph Nodes: No enlarged | | | lymph nodes seen. Peritoneum and Retroperitoneum: Trace ascites. No | | | free air seen. PELVIS Genitourinary: Urinary bladder appears to | | | be decompressed secondary to indwelling Camarena catheter. BODY WALL | | | Soft Tissues: Moderate anasarca. Bones: No acute or destructive | | | osseous process seen. IMPRESSION- 1. Multiple small ground-glass | | | pulmonary nodules in the lower lobes bilaterally, likely infectious | | | or inflammatory. 2. Small bilateral pleural effusions. | | | Associated bibasilar consolidation, suggesting atelectasis or | | | pneumonia. 3. No free air, bowel obstruction, ileus or fluid | | | collection seen in the abdomen and pelvis. 4. Moderate anasarca. | | | Trace amount of ascites. 5. Nonobstructing left renal calculi | | | measuring up to 8 mm. No hydronephrosis seen. A preliminary | | | report was sent by [facility] with no significant discrepancy on | | | 01/06/2020 4:25 PM. Dictated and Signed by: Zenon Cruz MD | | | Electronically signed: 01/06/2020 6:28 PM | | + + + + + | Procedure Note | + + | Cheng, Rad Results In - 01/06/2020 6:[address] CHEST ABDOMEN PELVIS WO CONTRAST | | 01/06/2020 3:02 PMHISTORY: CoughShortness of breathCough, shortness of breath, | | hydronephrosis, abdominal pain..COMPARISON: Multiple priors.PROTOCOL: Axial images of | | the chest, abdomen, and pelvis were obtained. Coronaland sagittal reformations were | | acquired.FINDINGS:Lack of intravenous contrast typically diminishes sensitivity | | forassessment of solid organs and vascular structures.CHESTLungs, Pleura and Airways: | | Multiple small ground-glass nodulesidentified within the lower lobes bilaterally. Small | | bilateral pleuraleffusions, associated small amount of consolidation involving the | | lungbases.Mediastinum: No cardiomegaly or pericardial effusion. Aorta does notappear | | aneurysmal.Lymph Nodes: No enlarged lymph nodes seen.ABDOMENSolid organ evaluation | | suboptimal without contrast.Liver and Biliary: Liver and gallbladder appear | | unremarkable.Pancreas, Spleen and Adrenals: Appear unremarkable.Kidneys: There are 4-5 | | nonobstructing left renal calculi seen measuringup to 8 mm. No hydronephrosis seen. | | Right kidney appears unremarkable.ABDOMEN AND PELVISBowel: Appendix is not definitively | | seen. No bowel obstruction orileus seen.Vessels: Aorta does not appear aneurysmal.Lymph | | Nodes: No enlarged lymph nodes seen.Peritoneum and Retroperitoneum: Trace ascites. No | | free air seen.PELVISGenitourinary: Urinary bladder appears to be decompressed secondary | | toindwelling Camarena catheter.BODY WALLSoft Tissues: Moderate anasarca.Bones: No acute or | | destructive osseous process seen.IMPRESSION- 1. Multiple small ground-glass pulmonary | | nodules in the lower lobesbilaterally, likely infectious or inflammatory.2. Small | | bilateral pleural effusions. Associated bibasilarconsolidation, suggesting atelectasis | | or pneumonia.3. No free air, bowel obstruction, ileus or fluid collection seen inthe | | abdomen and pelvis.4. Moderate anasarca. Trace amount of ascites.5. Nonobstructing | | left renal calculi measuring up to 8 mm. Nohydronephrosis seen.A preliminary report was | | sent by [facility] with no significant discrepancyon 01/06/2020 4:25 PM.Dictated | | and Signed by: Zenon Cruz MD Electronically signed: 01/06/2020 6:28 PM | |Liver and Biliary: Liver and gallbladder appear unremarkable. | |Pancreas, Spleen and Adrenals: Appear unremarkable. | |Kidneys: There are 4-5 nonobstructing left renal calculi seen measuring | |up to 8 mm. No hydronephrosis seen. Right kidney appears unremarkable. | | | |ABDOMEN AND PELVIS | |Bowel: Appendix is not definitively seen. No bowel obstruction or | |ileus seen. | |Vessels: Aorta does not appear aneurysmal. | |Lymph Nodes: No enlarged lymph nodes seen. | |Peritoneum and Retroperitoneum: Trace ascites. No free air seen. | | | |PELVIS | |Genitourinary: Urinary bladder appears to be decompressed secondary to | |indwelling Camarena catheter. | | | |BODY WALL | |Soft Tissues: Moderate anasarca. | |Bones: No acute or destructive osseous process seen. | | | |IMPRESSION- | |1. Multiple small ground-glass pulmonary nodules in the lower lobes | |bilaterally, likely infectious or inflammatory. | |2. Small bilateral pleural effusions. Associated bibasilar | |consolidation, suggesting atelectasis or pneumonia. | |3. No free air, bowel obstruction, ileus or fluid collection seen in | |the abdomen and pelvis. | |4. Moderate anasarca. Trace amount of ascites. | |5. Nonobstructing left renal calculi measuring up to 8 mm. No | |hydronephrosis seen. | | | |A preliminary report was sent by [facility] with no significant discrepancy | |on 01/06/2020 4:25 PM. | | | |Dictated and Signed by: Zenon Cruz MD | | Electronically signed: 01/06/2020 6:28 PM | + + + +---------+ + + | Performing | Address | City/State/Zipcode | Phone Number | | Organization | | | | + +---------+ + + | [facility] | | | | + +---------+ + + POC Glucose (01/06/2020 3:03 PM PDT) + +---------+ + + + | Component | Value | Ref Range | Performed | Pathologist | | | | | At | Signature | + +---------+ + + + | Glucose, | 192 (H) | 70 - 109 mg/dL | [address] | [place] | [phone] | | [facility] | | [address] | | | - LABORATORY | | | | + + + + + POC Glucose (01/06/2020 2:06 PM PDT) + +---------+ + + + | Component | Value | Ref Range | Performed | Pathologist | | | | | At | Signature | + +---------+ + + + | Glucose, | 243 (H) | 70 - 109 mg/dL | [...] ST. | [address] | [place], [place] | [phone] | | [facility] | | [address] | | | - LABORATORY | | | | + + + + + POC Glucose (01/06/2020 1:11 PM PDT) + +---------+ + + + | Component | Value | Ref Range | Performed | Pathologist | | | | | At | Signature | + +---------+ + + + | Glucose, | 311 (H) | 70 - 109 mg/dL | [...] + | [facility] | [address] | [place] | [phone] | | [facility] | | [address] | | | - LABORATORY | | | | + + + + + Phosphorus (01/06/2020 12:21 PM PDT) + +---------+ + + + | Component | Value | Ref Range | Performed | Pathologist | | | | | At | Signature | + +---------+ + + + | Phosphorus | 7.4 (H) | 2.4 - 5.1 mg/dL | [...] + | [facility] | [address] | [place] | [phone] | | [facility] | | [address] | | | - LABORATORY | | | | + + + + + Magnesium (01/06/2020 12:21 PM PDT) + +-------+ + + + | Component | Value | Ref Range | Performed | Pathologist | | | | | At | Signature | + +-------+ + + + | Magnesium | 1.9 | 1.6 - 2.6 mg/dL | [facility] [...] + | [facility] | [address] | [place] | [phone] | | [facility] | | [address] | | | - LABORATORY | | | | + + + + + Basic Metabolic Panel (01/06/2020 12:21 PM PDT) + + + + + + | Component | Value | Ref Range | Performed | Pathologist | | | | | At | Signature | + + + + + + | Na | 139 | 136 - 145 | [facility] | [...] + + + | Anion Gap | 15 | 3 - 16 mmol/L | [facility] | | | | [facility] | | | | | | MEDICAL | | | | | | CENTER - | | | | | | LABORATORY | | + + + + + + | Glucose | 324 (H) | 60 - 106 mg/dL | [...] + + + + | Creatinine | 4.08 (H) | 0.70 - 1.30 | [facility] | | | | | mg/dL | [facility] | | | | | | MEDICAL | | | | | | CENTER - | | | | | | LABORATORY | | + + + + + + | eGFR if not | 17 (L)Comment: | >=60 | [facility] | | | | GLOMERULAR FILTRATION | mL/min/1.73m2 | [facility] | | | [place] | RATE,ESTIMATED | | MEDICAL | | | | mL/min/1.19z3Yadb than | | CENTER - | | [...] 7.1 (L) | 8.7 - 10.4 | [facility] | | | | | mg/dL | [facility] | | | | | | MEDICAL | | | | | | CENTER - | | | | | | LABORATORY | | + + + + + + | BUN/Creatin | 15.9 | | [facility] | | | ine [...] [address] | [place] | [phone] | | [facility] | | [address] | | | - LABORATORY | | | | + + + + + POC Glucose (01/06/2020 12:10 PM PDT) + +---------+ + + + | Component | Value | Ref Range | Performed | Pathologist | | | | | At | Signature | + +---------+ + + + | Glucose, | 332 (H) | 70 - 109 mg/dL | [facility] | | | POC | | | [facility] | | | | | | [...] + | [facility] | [address] | [place] | [phone] | | [facility] | | [address] | | | - LABORATORY | | | | + + + + + POC Glucose (01/06/2020 11:03 AM PDT) + +---------+ + + + | Component | Value | Ref Range | Performed | Pathologist | | | | | At | Signature | + +---------+ + + + | Glucose, | 336 (H) | 70 - 109 mg/dL | [...] ST. | [address] | [place], [place] | [phone] | | [facility] | | [address] | | | - LABORATORY | | | | + + + + + POC Glucose (01/06/2020 10:02 AM PDT) + +---------+ + + + | Component | Value | Ref Range | Performed | Pathologist | | | | | At | Signature | + +---------+ + + + | Glucose, | 402 (H) | 70 - 109 mg/dL | [...] [address] | [place] | [phone] | | [facility] | | [address] | | | - LABORATORY | | | | + + + + + POC Glucose (01/06/2020 9:05 AM PDT) + +---------+ + + + | Component | Value | Ref Range | Performed | Pathologist | | | | | At | Signature | + +---------+ + + + | Glucose, | 431 (H) | 70 - 109 mg/dL | [...] [address] | [place] | [phone] | | [facility] | | [address] | | | - LABORATORY | | | | + + + + + Retic Count (01/06/2020 8:05 AM PDT) + + + + + + | Component | Value | Ref Range | Performed | Pathologist | | | | | At | Signature | + + + + + + | % | 2.1 (H) | 0.5 - 1.5 % | [facility] | | | Reticulocyt | | | [facility] | | | e Count | | | MEDICAL | | | | | | CENTER - | | | | | | LABORATORY | | + + + + + + | Absolute | 0.0553 | 0.0260 - 0.0950 | [facility] | | | Reticulocyt | | M/uL | [facility] | | | e Count | | | MEDICAL | | | | | | CENTER - | | | | | | LABORATORY | | + + + + + + | Immature | 15.1Comment: Values | 2.3 - 15.9 % | [facility] | | | Reticulocyt | above normal range | | [facility] | | | e Fraction | indicate an increase in | | MEDICAL | | | | RBC production in the | | CENTER - | | | | bone marrow. | | LABORATORY | | + + + + + + | Reticulocyt | 29.6Comment: Values | 29.0 - 38.0 pg | [facility] | | | e | below 29 pg are an early | | [facility] | | | Hemoglobin | indicator of [...] ST. | [address] | [place], [place] | [phone] | | [facility] | | [address] | | | - LABORATORY | | | | + + + + + Folate (01/06/2020 8:04 AM PDT) + +---------+ + + + | Component | Value | Ref Range | Performed | Pathologist | | | | | At | Signature | + +---------+ + + + | FOLATE | 2.0 (L) | >5.4 ng/mL | [facility] | | | | | [...] [address] | [place] | [phone] | | [facility] | | [address] | | | - LABORATORY | | | | + + + + + Vitamin B-12 (01/06/2020 8:04 AM PDT) + + + + + + | Component | Value | Ref Range | Performed | Pathologist | | | | | At | Signature | + + + + + + | VITAMIN | 1,885 (H)Comment: | 156 - 672 pg/mL | [facility] | | | B-12 | DEFICIENT: | | [facility] | | | | <145 | | MEDICAL | | | | pg/mLINDETERMINATE: | | CENTER - | | | | 145-180 pg/mL THIS B12 | | LABORATORY | | | | HAS BEEN REPEATED WITH A | | | | | | DILUTION PROCEDURE TO | | | | | | CALCULATE A RESULT | | | | | | GREATER THAN 1500 pg/mL. | | | | | | THE ASSAY HAS NOT BEEN | | | | | | VALIDATED FOR THIS | | | | | | HIGHER RANGE, AND | | | | | | RESULTS SHOULD BE | | | | | | INTERPRETED WITH | | | | | | CAUTION. | | | | + + + + + + + + | Specimen | + + | Blood | + + + + + + + | Performing | Address | City/State/Zipcode | Phone Number | | Organization | | | | + + + + + | [facility] | [address] | [place] | [phone] | | [facility] | | [address] | | | - LABORATORY | | | | + + + + + Ferritin (01/06/2020 8:04 AM PDT) + +---------+ + + + | Component | Value | Ref Range | Performed | Pathologist | | | | | At | Signature | + +---------+ + + + | FERRITIN | 480 (H) | 11 - 307 ng/mL | [facility] | | | | | [...] [address] | [place] | [phone] | | [facility] | | [address] | | | - LABORATORY | | | | + + + + + Iron and Transferrin (01/06/2020 8:04 AM PDT) + + + + + + | Component | Value | Ref Range | Performed | Pathologist | | | | | At | Signature | + + + + + + | Iron | 84 | 65 - 175 ug/dL | [facility] | | | | | | [facility] | | | | | | MEDICAL | | | | | | CENTER - | | | | | | LABORATORY | | + + + + + + | TRANSFERRIN | 109.0 (L) | 215.0 - 365.0 | [facility] | | | | | mg/dL | [facility] | | | | | | MEDICAL | | | | | | CENTER - | | | | | | LABORATORY | | + + + + + + | TIBC | 153 (L) | 235 - 425 ug/dL | [facility] | | | | | | [facility] | | | | | | MEDICAL | | | | | | CENTER - | | | | | | LABORATORY | | + + + + + + | % | 55.0 | 20.0 - 55.0 % | [facility] | | | SATURATION | | | [facility] | | [...] [address] | [place] | [phone] | | [facility] | | [address] | | | - LABORATORY | | | | + + + + + Type and Screen (01/06/2020 8:04 AM PDT) + + + + + [...] | | Screen | | | [facility] | | [...] St | [place] | | | [facility] | | [address] | | | - BLOOD BANK | | | | + + + + + Phosphorus (01/06/2020 8:04 AM PDT) + + + + + + | Component | Value | Ref Range | Performed | Pathologist | | | | | At | Signature | + + + + + + | Phosphorus | 8.0 ()Comment: | 2.4 - 5.1 mg/dL | [facility] | | | | Consistent with previous | | [facility] | | | [...] + | [facility] | [address] | [place] | [phone] | | [facility] | | [address] | | | - LABORATORY | | | | + + + + + Magnesium (01/06/2020 8:04 AM PDT) + +-------+ + + + | Component | Value | Ref Range | Performed | Pathologist | | | | | At | Signature | + +-------+ + + + | Magnesium | 2.0 | 1.6 - 2.6 mg/dL | [facility] | | | | [...] ST. | [address] | [place], [place] | [phone] | | [facility] | | [address] | | | - LABORATORY | | | | + + + + + Basic Metabolic Panel (01/06/2020 8:04 AM PDT) + + + + + + | Component | Value | Ref Range | Performed | Pathologist | | | | | At | Signature | + + + + + + | Na | 136 | 136 - 145 | [facility] | [...] + + + + | Cl | 107 | 98 - 107 mmol/L | [facility] | | | | | | [facility] | | | | | | MEDICAL | | | | | | CENTER - | | | | | | LABORATORY | | + + + + + + | CO2 | <10 (LL)Comment: | 20 - 31 mmol/L | [facility] | | | | Consistent with previous | | [facility] | | | | results. | | MEDICAL | | | | | | CENTER - | | | | | | LABORATORY | | + + + + + + | Anion Gap | Comment: Anion Gap is | | [facility] | | | | not calculated due to a | | [facility] | | | | component that is | | MEDICAL | | | | outside the analytical | | CENTER - | | | | measurement range. | | LABORATORY | | + + + + + + | Glucose | 487 (H) | 60 - 106 mg/dL | [...] + + + + | Creatinine | 4.13 (H) | 0.70 - 1.30 | [facility] [...] | | GLOMERULAR FILTRATION | mL/min/1.73m2 | [facility] | | | [place] | RATE,ESTIMATED | | MEDICAL | | | | mL/min/1.50w9Hvmx than | | CENTER - | | [...] + + + + | BUN/Creatin | 15.7 | | [facility] | | | ine [...] [address] | [place] | [phone] | | [facility] | | [address] | | | - LABORATORY | | | | + + + + + POC Glucose (01/06/2020 7:56 AM PDT) + +---------+ + + + | Component | Value | Ref Range | Performed | Pathologist | | | | | At | Signature | + +---------+ + + + | Glucose, | 412 (H) | 70 - 109 mg/dL | [...] + | [facility] | [address] | [place] | [phone] | | [facility] | | [address] | | | - LABORATORY | | | | + + + + + POC Glucose (01/06/2020 7:03 AM PDT) + +---------+ + + + | Component | Value | Ref Range | Performed | Pathologist | | | | | At | Signature | + +---------+ + + + | Glucose, | 498 (H) | 70 - 109 mg/dL | [...] [address] | [place] | [phone] | | [facility] | | [address] | | | - LABORATORY | | | | + + + + + POC Glucose (01/06/2020 6:04 AM PDT) + +---------+ + + + | Component | Value | Ref Range | Performed | Pathologist | | | | | At | Signature | + +---------+ + + + | Glucose, | 505 (H) | 70 - 109 mg/dL | [...] + | [facility] | [address] | [place] | [phone] | | [facility] | | [address] | | | - LABORATORY | | | | + + + + + POC Glucose (01/06/2020 5:10 AM PDT) + +---------+ + + + | Component | Value | Ref Range | Performed | Pathologist | | | | | At | Signature | + +---------+ + + + | Glucose, | 564 (H) | 70 - 109 mg/dL | [...] [address] | [place] | [phone] | | [facility] | | [address] | | | - LABORATORY | | | | + + + + + Clostridioides difficile NAAT Reflex (01/06/2020 4:29 AM PDT) + + + + + + | Component | Value | Ref Range | Performed | Pathologist | | | | | At | Signature | + + + + + + | C. | NegativeComment: No | Negative | [facility] | | | difficile, | Toxigenic C. difficile | | [facility] | | | Interp | detected. Consider [...] | | difficile, | | | [facility] | | | NAAT | | | [...] [address] | [place] | [phone] | | [facility] | | [address] | | | - LABORATORY | | | | + + + + + Stool Pathogens, NAAT (01/06/2020 4:29 AM PDT) + + + + + + | Component | Value | Ref Range | Performed | Pathologist | | | | | At | Signature | + + + + + + | Campylobact | Not Detected | Not Detected | [facility] | | | er, NAAT | | | [facility] | | | | | | MEDICAL | | | | | | CENTER - | | | | | | LABORATORY | | + + + + + + | Salmonella, | Not Detected | Not Detected | [facility] | | | NAAT | | | [facility] | | | | | | MEDICAL | | | | | | CENTER - | | | | | | LABORATORY | | + + + + + + | Shigella | Not Detected | Not Detected | [facility] | | | NAAT | | | [facility] | | | | | | MEDICAL | | | | | | CENTER - | | | | | | LABORATORY | | + + + + + + | Vibrio, | Not Detected | Not Detected | [facility] | | | NAAT | | | [facility] | | | | | | MEDICAL | | | | | | CENTER - | | | | | | LABORATORY | | + + + + + + | Yersinia | Not Detected | Not Detected | [facility] | | | enterocolit | | | [facility] | | | ica, NAAT | | | MEDICAL | | | | | | CENTER - | | | | | | LABORATORY | | + + + + + + | Shigatoxin | Not Detected | Not Detected | [facility] | | | 1 | | | [facility] | | | | | | MEDICAL | | | | | | CENTER - | | | | | | LABORATORY | | + + + + + + | Shigatoxin | Not Detected | Not Detected | [facility] | | | 2 | | | [facility] | | [...] [address] | [place] | [phone] | | [facility] | | [address] | | | - LABORATORY | | | | + + + + + Culture, Urine (01/06/2020 4:28 AM PDT) + + + [...] + | [facility] | [address] | [place] | [phone] | | [facility] | | [address] | | | - LABORATORY | | [...] | , Qual | | | [facility] | | [...] + | [facility] | [address] | [place] | [phone] | | [facility] | | [address] | | | - LABORATORY | | | | + + + + + Creatinine, Urine, Random (01/06/2020 4:28 AM PDT) + +-------+ + + + | Component | Value | Ref Range | Performed | Pathologist | | | | | At | Signature | + +-------+ + + + | Creatinine, | 73 | mg/dL | [facility] | | | [...] [address] | [place] | [phone] | | [facility] | | [address] | | | - LABORATORY | | [...] + + | Performed at: [address] [place] [address], | REFERENCE LAB | | [place], [place] [id number] [address] Reporter: Jerome Agudelo MD, Phone: | [facility] | | [phone] | | + + + + + + + + | Performing | Address | City/State/Zipcode | Phone Number | | Organization | | | | + + + + + | REFERENCE LAB | [address] | [place] | [phone] | | [facility] | [place] | [address] | | + + + + + Sodium, Urine, Random (01/06/2020 4:28 AM PDT) + +--------+ + + + | Component | Value | Ref Range | Performed | Pathologist | | | | | At | Signature | + +--------+ + + + | Sodium, | 37 (L) | 40 - 220 mmol/L | [facility] [...] + | [facility] | [address] | [place] | [phone] | | [facility] | | [address] | | | - LABORATORY | | | | + + + + + Urinalysis with Microscopic with Culture if Indicated (01/06/2020 4:28 AM PDT) + + + + + + | Component | Value | Ref Range | Performed | Pathologist | | | | | At | Signature | + + + + + + | Color, | Yellow | Light Yellow, | [facility] | | | Urine | | Yellow, Straw | [facility] | | | | [...] - 1.030 | [facility] | | | [place] | | | [facility] | | [...] + + + + | Glucose, | >=500 mg/dL (A) | Negative | [facility] | | | Urine | | | [facility] | | | | | | MEDICAL | | | | | | CENTER - | | | | | | LABORATORY | | + + + + + + | Ketones, | 20 mg/dL (A) | Negative | [facility] | [...] + + + | White Blood | 50-100 (A) | 0 - 2 /HPF | [facility] | | | Cells, | | | [facility] | | | Urine | | | MEDICAL | | | | | | CENTER - | | | | | | LABORATORY | | + + + + + + | RBC UA | 15-25 (A) | 0 - 2 /HPF | [facility] | | | | | | [facility] | | | | | | MEDICAL | | | | | | CENTER - | | | | | | LABORATORY | | + + + + + + | Squamous | 50-100 (A) | 0 - 2 /LPF | [facility] | | | Epithelial | | | [facility] | | | Cells, | | | MEDICAL | | | Urine | | | CENTER - | | | | | | LABORATORY | | + + + + + + | BACTERIA UA | 2+ (A) | Negative /HPF | [facility] | | | | | | [facility] | | | | | | MEDICAL | | | | | | CENTER - | | | | | | LABORATORY | | + + + + + + | MUCUS UA | Present (A) | Negative /LPF | [facility] | | | | | | [facility] | | | | | | MEDICAL | | | | | | CENTER - | | | | | | LABORATORY | | + + + + + + | HYALINE | 25-50 (A) | 0 - 2 /LPF | [facility] | | | CASTS UA | | | [facility] | | | | | | MEDICAL | | | | | | CENTER - | | | | | | LABORATORY | | + + + + + + | URINE | Urine Culture Set Up | | [facility] | | | COMMENT | | | [facility] | | [...] ST. | [address] | [place] | [phone] | | [facility] | | [address] | | | - LABORATORY | | | | + + + + + POC Glucose (01/06/2020 4:09 AM PDT) + +---------+ + + + | Component | Value | Ref Range | Performed | Pathologist | | | | | At | Signature | + +---------+ + + + | Glucose, | 506 (H) | 70 - 109 mg/dL | [...] [address] | [place] | [phone] | | [facility] | | [address] | | | - LABORATORY | | | | + + + + + Culture, Blood (01/06/2020 3:39 AM PDT) + + + + + + | Component | Value | Ref Range | Performed | Pathologist | | | | | At | Signature | + + + + + + | Culture | No growth after 5 days | | [facility] | | | | incubation. | | [facility] | | | | [...] + | [facility] | [address] | [place] | [phone] | | [facility] | | [address] | | | - LABORATORY | | | | + + + + + ECG 12 lead (01/06/2020 3:31 AM PDT) + + + + + + | Component | Value | Ref Range | Performed | Pathologist | | | | | At | Signature | + + + + + + | VENTRICULAR | 99 | BPM | [facility] | | | RATE EKG | | | | | + + + + + + | ATRIAL RATE | 99 | BPM | [facility] | | + + + + + + | P-R | 138 | ms | [facility] | | | INTERVAL | | | | | + + + + + + | QRS | 90 | ms | [facility] | | | DURATION | | | | | + + + + + + | Q-T | 400 | ms | [facility] | | | INTERVAL | | | | | + + + + + + | Q-T | 513 | ms | [facility] | | | INTERVAL | | | | | | (CORRECTED) | | | | | + + + + + + | P WAVE AXIS | 74 | degrees | [facility] | | + + + + + + | QRS AXIS | 46 | degrees | [facility] | | + + + + + + | T AXIS | 59 | degrees | [facility] | | + + + + + + | INTERPRETAT | Normal sinus rhythmLong | | [facility] | | | ION TEXT | QTcAbnormal ECGWhen | | | | | | compared with ECG of | | | | | | 20-SEP-2018 07:18,T wave | | | | | | amplitude has decreased | | | | | | QTc has | | | | | | lengthenedConfirmed by | | | | | | CRISTINE HUDDLESTON MD ([id number]) | | | | | | on 01/06/2020 6:53:56 AM | | | | + + [...] | | + +---------+ + + Culture, Blood (01/06/2020 3:29 AM PDT) + + + + [...] ST. | [address] | [place], [place] | [phone] | | [facility] | | [address] | | | - LABORATORY | | | | + + + + + Phosphorus (01/06/2020 3:28 AM PDT) + + + + + + | Component | Value | Ref Range | Performed | Pathologist | | | | | At | Signature | + + + + + + | Phosphorus | 8.7 ()Comment: | 2.4 - 5.1 mg/dL | [facility] | | | | Critical Result called | | [facility] | | | | to and read back by Chata | | MEDICAL | | | | Dominick Guzman RN on | | CENTER - | | | | 01/06/2020 at 4:36 AM by | | LABORATORY | | [...] [address] | [place] | [phone] | | [facility] | | [address] | | | - LABORATORY | | | | + + + + + Magnesium (01/06/2020 3:28 AM PDT) + +-------+ + + + | Component | Value | Ref Range | Performed | Pathologist | | | | | At | Signature | + +-------+ + + + | Magnesium | 2.1 | 1.6 - 2.6 mg/dL | [facility] | | | | | | [facility] | | | | | | MEDICAL [...] + | [facility] | [address] | [place] | [phone] | | [facility] | | [address] | | | - LABORATORY | | | | + + + + + Beta Hydroxybutyrate, Quant (01/06/2020 3:28 AM PDT) + + + + + + | Component | Value | Ref Range | Performed | Pathologist | | | | | At | Signature | + + + + + + | Beta | 9.81 (H) | 0.02 - 0.27 | [facility] | | | Hydroxybuty | | mmol/L | [facility] | | | rate | | | [...] [address] | [place] | [phone] | | [facility] | | [address] | | | - LABORATORY | | | | + + + + + Procalcitonin (01/06/2020 3:28 AM PDT) + + + + + + | Component | Value | Ref Range | Performed | Pathologist | | | | | At | Signature | + + + + + + | Procalciton | 1.15 (H) | <=0.50 ng/mL | [facility] | | | in | | | [facility] | | | | | | [facility]ICAL | | | | | | CENTER - | | | | | | LABORATORY | | + + + + + + | Comment | Comment: < 0.50 | | [facility] | | | | ng/mL:Procalcitonin | | [facility] | | | | levels below 0.50 [...] + | [facility] | [address] | Lety Davidson MD | [phone] | | [facility] | | [address] | | | - LABORATORY | | | | + + + + + Lactic Acid (01/06/2020 3:28 AM PDT) + +-------+ + + + | Component | Value | Ref Range | Performed | Pathologist | | | | | At | Signature | + +-------+ + + + | Lactate | 0.9 | 0.5 - 2.2 | [facility] | | | | | mmol/L | [facility] | | | | | | MEDICAL [...] [address] | [place] | [phone] | | [facility] | | [address] | | | - LABORATORY | | [...] | | | Comment:Reference | | [facility] | | | | Ranges: 0.00-0.06 = [...] | | | | | | [employer] | | | | | [...] [address] | [place] | [phone] | | [facility] | | [address] | | | - LABORATORY | | | | + + + + + Comprehensive Metabolic Panel (01/06/2020 3:28 AM PDT) + + + + + + | Component | Value | Ref Range | Performed | Pathologist | | | | | At | Signature | + + + + + + | Na | 135 (L) | 136 - 145 | [facility] | | | | | mmol/L | [facility] | | | | | | MEDICAL | | | | | | CENTER - | | | | | | LABORATORY | | + + + + + + | K | 5.5 (H) | 3.4 - 5.1 | [facility] | | | | | mmol/L | [facility] | | | | | | [facility] | | | | | | C[facility] - | | | | | | LABORATORY | | + + + + + + | Cl | 104 | 98 - 107 mmol/L | [facility] | | | | | | [facility] | | | | | | [facility] | | | | | | [facility] - | | | | | | LABORATORY | | + + + + + + | CO2 | <10 ()Comment: | 20 - 31 mmol/L | [facility] | | | | Critical Result called | | [facility] | | | | to and read back by [facility] | | MEDICAL | | | | Dominick Guzman RN on | | CENTER - | | | | 01/06/2020 at 4:36 AM by | | LABORATORY | | | | Nabeel Wlaton. | | | | + + + + + + | Anion Gap | Comment: Anion Gap is | | [facility] | | | | not calculated due to a | | [facility] | | | | component that is | | MEDICAL | | | | outside the analytical | | CENTER - | | | | measurement range. | | LABORATORY | | + + + + + + | Glucose | 612 ()Comment: | 60 - 106 mg/dL | [facility] | | | | Critical Result called | | [facility] | | | | to and read back by Chata | | MEDICAL | | | | Dominick Guzman RN on | | CENTER - | | | | 01/06/2020 at 4:36 AM by | | LABORATORY | | | | Nabeel Walton. | | | | + + + + + + | BUN | 67 (H) | 9 - 23 mg/dL | [facility] | | | | | | [facility] | | | | | | MEDICAL | | | | | | CENTER - | | | | | | LABORATORY | | + + + + + + | Creatinine | 4.16 (H) | 0.70 - 1.30 | [facility] | | | | | mg/dL | [facility] | | | | | | MEDICAL | | | | | | CENTER - | | | | | | LABORATORY | | + + + + + + | eGFR if not | 17 (L)Comment: | >=60 | [facility] | | | | GLOMERULAR FILTRATION | mL/min/1.73m2 | [facility] | | | [place] | RATE,ESTIMATED | | MEDICAL | | | | mL/min/1.15v4Akaz than | | CENTER - | | [...] | | Total | | | [facility] | | | | | | MEDICAL | | | | | | CENTER - | | | | | | LABORATORY | | + + + + + + | Total | 4.7 (L) | 5.7 - 8.2 g/dL | [facility] | | | Protein | | | [facility] | | | | | | [facility] | | | | | | CENTER - | | | | | | LABORATORY | | + + + + + + | AST | 18 | 0 - 34 U/L | [facility] | | | | | | [facility] | | | | | | [facility] | | | | | | CENTER - | | | | | | LABORATORY | | + + + + + + | ALT | 31 | 10 - 49 U/L | [facility] | | | | | | [facility] | | | | | | [facility] | | | | | | CENTER - | | | | | | LABORATORY | | + + + + + + | Alkaline | 129 (H) | 46 - 116 U/L | [facility] | | | Phosphatase | | | [facility] | | | | | | [facility] | | | | | | CENTER - | | | | | | LABORATORY | | + + + + + + | Globulin | 2.2 | 2.1 - 3.8 g/dL | [facility] | | | | | | [facility] | | | | | | [facility] | | | | | | CENTER - | | | | | | LABORATORY | | + + + + + + | Albumin/Maria Del Carmen | 1.1 | 0.8 - 1.9 | [facility] | | | bulin Ratio | | | [facility] | | | | | | [facility]ICAL | | | | | | CENTER - | | | | | | LABORATORY | | + + + + + + | BUN/Creatin | 16.1 | | [facility] | | | ine [...] [address] | [place] | [phone] | | [facility] | | [address] | | | - LABORATORY | | | | + + + + + CBC with Differential (01/06/2020 3:28 AM PDT) + + + + + + | Component | Value | Ref Range | Performed | Pathologist | | | | | At | Signature | + + + + + + | WBC | 18.7 (H) | 4.0 - 11.0 K/uL | [facility] | | | | | | [facility] | | | | | | [facility] | | | | | | CENTER - | | | | | | LABORATORY | | + + + + + + | RBC | 2.58 (L) | 4.30 - 5.70 | [facility] | | | | | M/uL | [facility] | | | | | | [facility] | | | | | | CENTER - | | | | | | LABORATORY | | + + + + + + | Hemoglobin | 7.9 (L) | 13.5 - 18.0 | [facility] | | | | | g/dL | [facility] | | | | | | [facility]ICAL | | | | | | CENTER - | | | | | | LABORATORY | | + + + + + + | Hematocrit | 25.9 (L) | 40.0 - 51.0 % | [facility] | | | | | | [facility] | | | | | | [facility] | | | | | | CENTER - | | | | | | LABORATORY | | + + + + + + | MCV | 100.4 | 83.0 - 101.0 fL | [facility] | | | | | | [facility] | | | | | | [facility] | | | | | | CENTER - | | | | | | LABORATORY | | + + + + + + | MCH | 30.6 | 28.0 - 35.0 pg | [facility] | | | | | | [facility] | | | | | | [facility] | | | | | | CENTER - | | | | | | LABORATORY | | + + + + + + | MCHC | 30.5 (L) | 32.0 - 36.0 | [facility] [...] + + + + | RDW-SD | 58.2 (H) | 35.1 - 46.3 fL | [facility] | | | | | | [facility] | | | | | | [facility] | | | | | | CENTER - | | | | | | LABORATORY | | + + + + + + | Platelet | 219 | 140 - 440 K/uL | [facility] | | | Count | | | [facility] | | | | | | [facility]ICAL | | | | | | CENTER - | | | | | | LABORATORY | | + + + + + + | MPV | 13.6 (H) | 6.5 - 12.4 fL | [facility] | | | | | | [facility] | | | | | | [facility] | | | | | | CENTER - | | | | | | LABORATORY | | + + + + + + | Immature | 9.5Comment: Low PLT + | 0.9 - 11.2 % | [facility] | | | Platelet | Low IPF are consistent | | [facility] | | | Fraction | with a production | | MEDICAL | | | | disorder. Low PLT + High | | CENTER - | | | | IPF are consistent with | | LABORATORY | | | | increased platelet | | | | | | destruction. | | | | + + + + + + | % | 79.6 | 45.0 - 82.0 % | [facility] | | | Neutrophils | | | [facility] | | | | | | MEDICAL | | | | | | CENTER - | | | | | | LABORATORY | | + + + + + + | % | 11.0 (L) | 20.0 - 45.0 % | [facility] | | | Lymphocytes | | | [facility] | | | | | | MEDICAL | | | | | | CENTER - | | | | | | LABORATORY | | + + + + + + | % Monocytes | 7.1 | 4.0 - 12.0 % | [facility] | | | | | | [facility] | | | | | | [facility]ICAL | | | | | | CENTER - | | | | | | LABORATORY | | + + + + + + | % | 0.4 | 0.0 - 5.0 % | [facility] [...] + + + | % Immature | 1.2 (H)Comment: | 0.0 - 0.4 % | [...] + + + + | Absolute | 14.86 (H) | 1.80 - 8.50 | [facility] | | | Neutrophils | | K/uL | [facility] | | | | | [facility] | | | | | | CENTER - | | | | | | LABORATORY | | + + + + + + | Absolute | 2.06 | 0.60 - 3.20 | [facility] | | | Lymphocytes | | K/uL | [facility] | | | | | [facility] | | | | | | CENTER - | | | | | | LABORATORY | | + + + + + + | Absolute | 1.32 (H) | 0.00 - 1.00 | [facility] [...] + + + + | Absolute | 0.13 (H) | 0.00 - 0.10 | [facility] | | | Basophils | | K/uL | [facility] | | | | | | MEDICAL | | | | | | CENTER - | | | | | | LABORATORY | | + + + + + + | Absolute | 0.22 (H) | 0.00 - 0.03 | [facility] [...] + | [facility] | [address] | [place] | [phone] | | [facility] | | [address] | | | - LABORATORY | | | | + + + + + POC Glucose (01/06/2020 2:58 AM PDT) + +---------+ + + + | Component | Value | Ref Range | Performed | Pathologist | | | | | At | Signature | + +---------+ + + + | Glucose, | 380 (H) | 70 - 109 mg/dL | [...] [facility]. | [address] | [place], [place] | [phone] | | [facility] | | [address] | | | - LABORATORY | | | | + + + + + Culture, MRSA (01/06/2020 2:55 AM PDT) + + + + + + | Component | Value | Ref Range | Performed | Pathologist | | | | | At | Signature | + + + + + + | Culture | Negative for MRSA by | | [facility] | | | | chromogenic agar method. | | [facility] | | | | | | MEDICAL | | | | | | CENTER - | | | | | | LABORATORY | | + + + + + + + + | Specimen | + + | Body Fluid - Both | | anterior nares (body | | structure) | + + + + + + + | Performing | Address | City/State/Zipcode | Phone Number | | Organization | | | | + + + + + | [facility] | [address] | [place] | [phone] | | [facility] | | [address] | | | - LABORATORY | | [...] | | Venous | | | [facility] | | [...] | | Venous | | | [facility] | | | | | | MEDICAL | | | | | | CENTER - | | | | | | LABORATORY | | + + + + + + | Base | -23.1 | mmol/L | [facility] | | | Excess, | | | [facility] | | | Venous | | | MEDICAL | | | | | | CENTER - | | | | | | LABORATORY | | + + + + + + | O2 | 91 (H) | 60 - 85 % | [facility] | | | Saturation, | | | [facility] | | | Venous | | | MEDICAL | | | | | | CENTER - | | | | | | LABORATORY | | + + + + + + | Hemoglobin, | 8.3 | g/dL | [facility] | | | Venous | | | [facility] | | | | | | MEDICAL | | | | | | CENTER - | | | | | | LABORATORY | | + + + + + + | Oxyhemoglob | 87.8 (L) | 92.0 - 100.0 % | [facility] | | | in, Venous | | | [facility] | | | | | | MEDICAL | | | | | | CENTER - | | | | | | LABORATORY | | + + + + + + | Methemoglob | 1.8 | % | [facility] | | | in, Venous | | | [facility] | | | | | | MEDICAL | | | | | | CENTER - | | | | | | LABORATORY | | + + + + + + | Carboxyhemo | 1.4 | 0.0 - 3.0 % | [facility] | | | globin, | | | [facility] | | | Venous | | | MEDICAL | | | | | | CENTER - | | | | | | LABORATORY | | + + + + + + | FiO2 | 21.0 | % | [facility] | | | | | | [facility] | | | | | | MEDICAL | | | | | | CENTER - | | | | | | LABORATORY | | + + + + + + | PATIENT | 37.0 | | [facility] | | | TEMP | | | [facility] | | [...] + | [facility] | [address] | [place] | [phone] | | [facility] | | [address] | | | - LABORATORY | | | | + + + + + ECG - EXTERNAL SCAN (01/06/2020 12:00 AM PDT) + + + | Narrative | Performed At | + + + | Ordered by an | | | unspecified provider. | | + + + LABS - EXTERNAL SCAN (01/05/2020 12:00 AM PDT) + + + | Narrative | Performed At | + + + | Ordered by an | | | unspecified provider. | | + + + IMAGING REPORT - EXTERNAL SCAN (01/05/2020 12:00 AM PDT) + + + | Narrative | Performed At | + + + | Ordered by an | | | unspecified provider. | | + + + documented in this encounter Visit Diagnoses + + | Diagnosis | + + | Generalized weakness - Primary Other malaise and fatigue | + + | Diabetic ketoacidosis without coma associated with type 1 diabetes mellitus (HCC) | + + | Acute renal failure superimposed on stage 3 chronic kidney disease, unspecified acute | | renal failure type (HCC) | + + | Diabetic gastroparesis ([facility]) 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, not stated as uncontrolled | + + | Diabetic ulcer of left foot associated with type 1 diabetes mellitus, unspecified part | | of foot, unspecified ulcer stage ([facility]) | + + documented in this encounter Administered Medications + +---------+ +------+ +------+ | Medication Order | MAR | Action | Dose | Rate | Site | | | Action | Date | | | | + +---------+ +------+ +------+ | calcium gluconate 1 g in sodium | New Bag | 01/06/20 | 1 g | 60 mL/hr | | | chloride 0.9% 50 mL IVPB 1 g, | | 20 5:27 | | | | | Intravenous, Administer over 60 | | AM PDT | | | | | Minutes, ONCE, 01/06/20 at | | | | | | | 0500, For 1 dose | | | | | | + +---------+ +------+ +------+ +---+---+ | | | +---+---+ + +---------+ +-----+-------+---+ | cefTRIAXone (ROCEPHIN) 2 g in | New Bag | 01/10/20 | 2 g | 100 | | | sodium chloride 0.9% 50 mL IVPB | | 20 11:25 | | mL/hr | | | 2 g, Intravenous, Administer over | | AM PDT | | | | | 30 Minutes, EVERY 24 HOURS | | | | | | | (Daily), First dose on Sun | | | | | | | 01/06/20 at 1900, Activate system | | | | | | | and mix before use., Indications: | | | | | | | Community Acquired Pneumonia | | | | | | + +---------+ +-----+-------+---+ +---------+ +-----+-------+---+ | New Bag | 01/09/20 | 2 g | 100 | | | | 20 12:42 | | mL/hr | | | | PM PDT | | | | +---------+ +-----+-------+---+ | New Bag | 01/08/20 | 2 g | 100 | | | | 20 8:34 | | mL/hr | | | | AM PDT | | | | +---------+ +-----+-------+---+ + +---+ | | | + +---+ | dextrose 10% (D10W) infusion | | | at 50 mL/hr, Intravenous, | | | CONTINUOUS PRN, hypoglycemia, | | | Starting 01/06/20 at 0244, | | | Start infusion if unable [...] | + +---+ + +---------+ +---+-------+---+ | dextrose 5% and sodium chloride | New Bag | 01/07/20 | | 250 | | | 0.45% with KCl 20 mEq/L (D5 09/27 | | 20 12:20 | | mL/hr | | | NS + KCL 20) infusion at 250 | | AM PDT | | | | | mL/hr, Intravenous, PRN, Begin | | | | | | | when blood glucose drops below | | | | | | | 250 mg/dL, Starting 01/06/20 | | | | | | | at 1009, Begin at same rate as | | | | | | | any previous running IV fluid. | | | | | | | Stop any other IV fluid. | | | | | | | Discontinue when eating., | | | | | | + +---------+ +---+-------+---+ +---------+ +---+-------+---+ | New Bag | 01/06/20 | | 250 | | | | 20 6:57 | | mL/hr | | | | PM PDT | | | | +---------+ +---+-------+---+ | New Bag | 01/06/20 | | 250 | | | | 20 2:38 | | mL/hr | | | | PM PDT | | | | +---------+ +---+-------+---+ +---+---+ | | | +---+---+ + +-------+ +------+---+---+ | dextrose 50% injection 12.5-25 | Given | 01/07/20 | 25 g | | | | g 12.5-25 g, Intravenous, PRN, | | 20 12:38 | | | | | Low Blood Sugar, Starting Sun | | PM PDT | | | | | 01/06/20 at 0244, For blood | | | | | | | glucose 50-69 mg/dl - give 12.5 g | | | | | | | For blood glucose less than 50 | | | | | | | mg/dl - give 25 g, | | | | | | + +-------+ +------+---+---+ +---+---+ | | | +---+---+ + +---------+ +--------+-------+---+ | doxycycline (VIBRAMYCIN) 100 mg | New Bag | 01/09/20 | 100 mg | 100 | | | in sodium chloride 0.9% 100 mL | | 20 10:07 | | mL/hr | | | IVPB 100 mg, Intravenous, | | PM PDT | | | | | Administer over 1 Hours, EVERY 12 | | | | | | | HOURS (2 times per day), First | | | | | | | dose on 01/06/20 at 2100, | | | | | | | Activate system and mix before | | | | | | | use., Indications: Community | | | | | | | Acquired Pneumonia | | | | | | + +---------+ +--------+-------+---+ +---------+ +--------+-------+---+ | New Bag | 01/09/20 | 100 mg | 100 | | | | 20 11:30 | | mL/hr | | | | AM PDT | | | | +---------+ +--------+-------+---+ | New Bag | 01/08/20 | 100 mg | 100 | | | | 20 9:41 | | mL/hr | | | | PM PDT | | | | +---------+ +--------+-------+---+ +---+---+ | | | +---+---+ + +-------+ +-------+---+---+ | famotidine (PEPCID) injection | Given | 01/08/20 | 20 mg | | | | 20 mg 20 mg, Intravenous, DAILY, | | 20 8:34 | | | | | First dose (after last reorder) | | AM PDT | | | | | on 01/06/20 at 0900, Dilute 2 | | | | | | | mL of famotidine with 8 mL of | | | | | | | normal saline to a final | | | | | | | concentration of 2 mg/mL. | | | | | | | Administer ordered dose over a | | | | | | | period of at least 2 minutes., | | | | | | + +-------+ +-------+---+---+ +-------+ +-------+---+---+ | Given | 01/07/20 | 20 mg | | | | | 20 8:28 | | | | | | AM PDT | | | | +-------+ +-------+---+---+ | Given | 01/06/20 | 20 mg | | | | | 20 8:49 | | | | | | AM PDT | | | | +-------+ +-------+---+---+ +---+---+ | | | +---+---+ + +-------+ +-------+---+---+ | famotidine (PEPCID) tablet 20 | Given | 01/10/20 | 20 mg | | | | mg 20 mg, Oral, DAILY, First | | 20 11:19 | | | | | dose on 01/09/20 at 0930 | | AM PDT | | | | + +-------+ +-------+---+---+ +-------+ +-------+---+---+ | Given | 01/09/20 | 20 mg | | | | | 20 10:14 | | | | | | AM PDT | | | | +-------+ +-------+---+---+ +---+---+ | | | +---+---+ + +-------+ +--------+---+ + | heparin 5,000 units/mL | Given | 01/09/20 | 5,000 | | Abdomen- | | injection 5,000 Units 5,000 | | 20 10:07 | Units | | LLQ | | Units, Subcutaneous, EVERY 12 | | PM PDT | | | | | HOURS (2 times per day), First | | | | | | | dose on 01/06/20 at 0900 | | | | | | + +-------+ +--------+---+ + +-------+ +--------+---+ + | Given | 01/09/20 | 5,000 | | Abdomen- | | | 20 11:20 | Units | | RLQ | | | AM PDT | | | | +-------+ +--------+---+ + | Given | 01/08/20 | 5,000 | | Abdomen- | | | 20 9:15 | Units | | RLQ | | | PM PDT | | | | +-------+ +--------+---+ + +---+---+ | | | +---+---+ + +-------+ +---------+---+---+ | HYDROcodone-acetaminophen | Given | 01/10/20 | 2 | | | | (NORCO) 5-325 mg per tablet 1-2 | | 20 7:01 | tablets | | | | tablet 1-2 tablet, Oral, EVERY 6 | | AM PDT | | | | | HOURS PRN, Pain, hold for | | | | | | | sedation, rr<10, Starting Mon | | | | | | | 01/07/20 at 0225 | | | | | | + +-------+ +---------+---+---+ +-------+ +---------+---+---+ | Given | 01/09/20 | 2 | | | | | 20 11:53 | tablets | | | | | PM PDT | | | | +-------+ +---------+---+---+ | Given | 01/09/20 | 2 | | | | | 20 5:43 | tablets | | | | | PM PDT | | | | +-------+ +---------+---+---+ +---+---+ | | | +---+---+ + +-------+ + +---+ + | insulin glargine (LANTUS | Given | 01/07/20 | 20 Units | | Arm-Righ | | SOLOSTAR) injection (pen) 20 | | 20 1:15 | | | t Upper | | Units 20 Units, Subcutaneous, | | AM PDT | | | | | ONCE, 01/07/20 at 0100, For 1 | | | | | | | dose, For subcutaneous use only. | | | | | | | Basal (long acting) insulin., If | | | | | | | NPO: Decrease dose, by: 50% | | | | | | + +-------+ + +---+ + +---+---+ | | | +---+---+ + +-------+ +---------+---+ + | insulin glargine (LANTUS | Given | 01/07/20 | 5 Units | | Arm-Left | | SOLOSTAR) injection (pen) 5 Units | | 20 9:27 | | | Upper | | 5 Units, Subcutaneous, ONCE, | | PM PDT | | | | | 01/07/20 at 2100, For 1 dose, | | | | | | | For subcutaneous use only. Basal | | | | | | | (long acting) insulin., If NPO: | | | | | | | Decrease dose, by: 50% | | | | | | + +-------+ +---------+---+ + +---+---+ | | | +---+---+ + +-------+ +---------+---+ + | insulin glargine (LANTUS | Given | 01/09/20 | 6 Units | | Arm-Left | | SOLOSTAR) injection (pen) 6 Units | | 20 10:08 | | | Upper | | 6 Units, Subcutaneous, NIGHTLY, | | PM PDT | | | | | First dose (after last | | | | | | | modification) on Tue01/08/20 at | | | | | | | 2100, For subcutaneous use only. | | | | | | | Basal (long acting) insulin., If | | | | | | | NPO: Decrease dose, by: 25% | | | | | | + +-------+ +---------+---+ + +-------+ +---------+---+ + | Given | 01/08/20 | 6 Units | | Arm-Left | | | 20 9:56 | | | Upper | | | PM PDT | | | | +-------+ +---------+---+ + +---+---+ | | | +---+---+ + +-------+ +---------+---+ + | insulin lispro (humaLOG | Given | 01/09/20 | 1 Units | | Arm-Left | | KWIKPEN) injection (pen) 0-6 | | 20 10:09 | | | Upper | | Units 0-6 Units, Subcutaneous, 4 | | PM PDT | | | | | TIMES DAILY WITH MEALS & | | | | | | | NIGHTLY, First dose on Mon | | | | | | | 01/07/20 at 2115, CORRECTION | | | | | | [...] | | | | | NPO, Daytime [phone] Use NIGHT | | | | | | | DOSE for doses scheduled: | | | | | | | HS, Nighttime [phone] If the | | | | | | | BG is not checked before the | | | | | | | patient starts eating, do not | | | | | | | give correction insulin., | | | | | | + +-------+ +---------+---+ + +-------+ +---------+---+ + | Given | 01/09/20 | 3 Units | | Arm-Left | | | 20 5:50 | | | Upper | | | PM PDT | | | | +-------+ +---------+---+ + | Given | 01/08/20 | 1 Units | | Arm-Left | | | 20 9:28 | | | Upper | | | PM PDT | | | | +-------+ +---------+---+ + +---+---+ | | | +---+---+ + +---------+ + +-------+---+ | insulin regular (humuLIN R, | New Bag | 01/06/20 | 7.2 | 7.2 | | | novoLIN R) 1 Units/mL in sodium | | 20 10:08 | Units/hr | mL/hr | | | chloride 0.9% 100 mL infusion | | AM PDT | | | | | (Adult Protocol) 0-101.2 | | | | | | | Units/kg/hr | | | | | | | 74.5 kg (0-7,539.4 mL/hr), at | | | | | | | 0-7,539.4 mL/hr, Intravenous, | | | | | | | TITRATED, Starting 01/06/20 at | | | | | | | 1030 | | | | | | + +---------+ + +-------+---+ +---+---+ | | | +---+---+ + + + + +-------+---+ | insulin regular (humuLIN R, | Rate/Dos | 01/07/20 | 0.3 | 0.3 | | | novoLIN R) 1 Units/mL in sodium | e Change | 20 1:18 | Units/hr | mL/hr | | | chloride 0.9% 100 mL infusion | | AM PDT | | | | | (Adult Protocol) 0-101.2 | | | | | | | Units/hr (0-101.2 mL/hr), at | | | | | | | 0-101.2 mL/hr, Intravenous, | | | | | | | TITRATED, Starting 01/06/20 at | | | | | | | 1100 | | | | | | + + + + +-------+---+ + + + +-------+---+ | Rate/Dose Change | 01/07/20 | 0.2 | 0.2 | | | | 20 12:12 | Units/hr | mL/hr | | | | AM PDT | | | | + + + +-------+---+ | Rate/Dose Change | 01/06/20 | 0.5 | 0.5 | | | | 20 11:07 | Units/hr | mL/hr | | | | PM PDT | | | | + + + +-------+---+ +---+---+ | | | +---+---+ + + + + +-------+---+ | insulin regular (humuLIN R, | Rate/Dos | 01/06/20 | 0.101 | 7.5 | | | novoLIN R) 1 Units/mL in sodium | e Verify | 20 7:58 | Units/kg | mL/hr | | | chloride 0.9% 100 mL infusion | | AM PDT | /hr | | | | 0-0.4 Units/kg/hr | | | | | | | 74.5 kg (0-29.8 mL/hr), at | | | | | | | 0-29.8 mL/hr, Intravenous, | | | | | | | TITRATED, Starting 01/06/20 at | | | | | | | 0400, For initial infusion rate: | | | | | | | 0.1 units/kg/hr = 7.5 units/hr | | | | | | | 0.2 units/kg/hr = 14.9 | | | | | | | units/hr 0.3 units/kg/hr = 22.4 | | | | | | | units/hr 0.4 units/kg/hr = | | | | | | | 29.8 units/hr 1. If blood | | | | | | | glucose decreases by less | | | | | | | than 50 mg/dL in the first hour, | | | | | | | give a bolus of Regular | | | | | | | insulin 10.4 units (0.14 | | | | | | | units/kg) IV x 1 and | | | | | | | reassess in 1 hour 2. If blood | | | | | | | glucose drops by less than | | | | | | | 50 mg/dL after the 10.4 units | | | | | | | (0.14 units/kg) IV bolus of | | | | | | | Regular insulin, contact | | | | | | | provider 3. If blood glucose | | | | | | | decreases by 50-100 | | | | | | | mg/dL/hr, continue insulin | | | | | | | infusion at current rate 4. If | | | | | | | blood glucose decreases by | | | | | | | greater than 100 mg/dL/hr, | | | | | | | decrease insulin infusion rate by | | | | | | | 50%, but not lower than | | | | | | | 3.7 units/hr (0.05 units/kg/hr) | | | | | | | 5. When blood glucose drops to | | | | | | | 250 mg/dL or less, refer to | | | | | | | DKA Management order Prime | | | | | | | tubing with 20 mL of insulin | | | | | | | solution with each tubing change, | | | | | | | Begin infusion at (units/kg/hr): | | | | | | | 0.1 | | | | | | + + + + +-------+---+ + + + +-------+---+ | New Bag | 01/06/20 | 0.1 | 7.5 | | | | 20 7:04 | Units/kg | mL/hr | | | | AM PDT | /hr | | | + + + +-------+---+ | Continued Bag | 01/06/20 | 0.1 | 7.5 | | | | 20 6:05 | Units/kg | mL/hr | | | | AM PDT | /hr | | | + + + +-------+---+ +---+---+ | | | +---+---+ + +-------+ +-------+---+---+ | labetalol (TRANDATE) 5 mg/mL | Given | 01/09/20 | 10 mg | | | | injection 10 mg 10 mg, | | 20 10:35 | | | | | Intravenous, EVERY 4 HOURS PRN, | | PM PDT | | | | | For SBP persistently greater than | | | | | | | 150 at rest., Starting Mon | | | | | | | 01/07/20 at 1034 | | | | | | + +-------+ +-------+---+---+ +-------+ +-------+---+---+ | Given | 01/09/20 | 10 mg | | | | | 20 3:48 | | | | | | AM PDT | | | | +-------+ +-------+---+---+ | Given | 01/08/20 | 10 mg | | | | | 20 11:40 | | | | | | PM PDT | | | | +-------+ +-------+---+---+ +---+---+ | | | +---+---+ + +-------+ +---------+---+---+ | lactobacillus GG (CULTURELLE) | Given | 01/10/20 | 1 | | | | capsule 1 capsule 1 capsule, | | 20 11:19 | capsule | | | | Oral, 2 TIMES DAILY WITH | | AM PDT | | | | | BREAKFAST & DINNER, First dose on | | | | | | | 01/08/20 at 1700, Do not open | | | | | | | or crush., | | | | | | + +-------+ +---------+---+---+ +-------+ +---------+---+---+ | Given | 01/09/20 | 1 | | | | | 20 5:47 | capsule | | | | | PM PDT | | | | +-------+ +---------+---+---+ | Given | 01/09/20 | 1 | | | | | 20 10:14 | capsule | | | | | AM PDT | | | | +-------+ +---------+---+---+ +---+---+ | | | +---+---+ + +-------+ +------+---+---+ | loperamide (IMODIUM) capsule 2 | Given | 01/07/20 | 2 mg | | | | mg 2 mg, Oral, EVERY 3 HOURS | | 20 9:26 | | | | | PRN, Diarrhea, Starting Mon | | PM PDT | | | | | 01/07/20 at 2038 | | | | | | + +-------+ +------+---+---+ + +---+ | | | + +---+ | metoclopramide (REGLAN) 5 mg/mL | | | injection 5 mg 5 mg, | | | Intravenous, EVERY 6 HOURS PRN, | | | Nausea, Vomiting, Starting Wed | | | 01/09/20 at 0933, Protect from | | | light., | | + +---+ | | | + +---+ + +-------+ +-------+---+---+ | metoprolol tartrate (LOPRESSOR) | Given | 01/10/20 | 50 mg | | | | tablet 50 mg 50 mg, Oral, 2 | | 20 11:20 | | | | | TIMES DAILY, First dose (after | | AM PDT | | | | | last modification) on Tue01/07/20 | | | | | | | at 1645 | | | | | | + +-------+ +-------+---+---+ +-------+ +-------+---+---+ | Given | 01/09/20 | 50 mg | | | | | 20 10:08 | | | | | | PM PDT | | | | +-------+ +-------+---+---+ | Given | 01/09/20 | 50 mg | | | | | 20 10:14 | | | | | | AM PDT | | | | +-------+ +-------+---+---+ + +---+ | | | + +---+ | naloxone (NARCAN) 0.4 mg/mL | | | injection 0.4 mg 0.4 mg, | | | Intravenous, PRN, Apnea, | | | Decreased Responsiveness, | | | Starting Tue01/07/20 at 0225 | | + +---+ | | | + +---+ + +-------+ +------+---+---+ | ondansetron (ZOFRAN) injection | Given | 01/10/20 | 4 mg | | | | 4 mg 4 mg, Intravenous, EVERY 6 | | 20 7:01 | | | | | HOURS PRN, Nausea, Vomiting, | | AM PDT | | | | | Starting 01/08/20 at 0815 | | | | | | + +-------+ +------+---+---+ +-------+ +------+---+---+ | Given | 01/09/20 | 4 mg | | | | | 20 11:49 | | | | | | PM PDT | | | | +-------+ +------+---+---+ | Given | 01/09/20 | 4 mg | | | | | 20 5:43 | | | | | | PM PDT | | | | +-------+ +------+---+---+ +---+---+ | | | +---+---+ + +-------+ +------+---+---+ | ondansetron (ZOFRAN) injection | Given | 01/08/20 | 4 mg | | | | 4 mg 4 mg, Intravenous, ONCE, | | 20 12:40 | | | | | 01/08/20 at 1245, For 1 dose | | PM PDT | | | | + +-------+ +------+---+---+ +---+---+ | | | +---+---+ + +---------+ +---+-------+---+ | sodium chloride 0.9% (NS) | New Bag | 01/06/20 | | 250 | | | infusion at 250 mL/hr, | | 20 11:28 | | mL/hr | | | Intravenous, CONTINUOUS, Starting | | AM PDT | | | | | Erinn 01/06/20 at 0300, Discontinue | | | | | | | when dextrose-containing fluid | | | | | | | is started., | | | | | | + +---------+ +---+-------+---+ +---------+ +---+-------+---+ | New Bag | 01/06/20 | | 250 | | | | 20 8:00 | | mL/hr | | | | AM PDT | | | | +---------+ +---+-------+---+ | New Bag | 01/06/20 | | 250 | | | | 20 3:06 | | mL/hr | | | | [...] + + + + | Rule out CNanda Difficile | 01/06/2020 4:07 AM | 01/06/2020 7:05 AM | | | PDT | PDT | + + + + | Rule out COVID-19 | 01/06/2020 6:04 PM | 01/07/2020 7:03 PM | | | PDT | PDT | + + + + documented as of this encounter
--- OUTSIDE RECORDS SUMMARY | ~2020-01-14 | XMS | Encounter Summary ---
Demographics + + + | Address | [address] | | | [place] [address] | + + + | Home Phone | | + + + | Preferred Language | Unknown | + + + | Marital Status | Single | + + + | Hoahaoism Affiliation | NON | + + + | Race | White | + + + | Ethnic Group | Not or | + + + Author + + + | Author | [facility] | + + + | Organization | [facility] | + + + | Address | Unknown | + + + | Phone | Unavailable | + + + Support + + + + + | Name | Relationship | Address | Phone | + + + + + | Samantha Ramos | ECON | [address] # | | | | | [place] | | | | | [address] | | + + + + + Care Team Providers + +------+ + | Care Grain Trimmer Name | Role | Phone | + [...] | | | | Mailcode: PV430 | [place], [place] | | | | | [facility] | [address] | | | | | [place], [place] | [phone] | | | | | [address] | | | | | | [phone] | | | +--------+ + + + [...] | | | | | Lily [place], | | | | | | [place] [address] | | | | | | [phone] | | | | | | | [...]
--- OUTSIDE RECORDS SUMMARY | ~2020-01-14 | XMS | Encounter Summary ---
Demographics + + + | Address | [address] | | | [place] [address] | + + + | Home Phone [...] + + + | Author | [facility] | | | and [place] | + + + | Organization | [facility] | | | [...] [place] | | | | | [address] | | + + + + + Care Team Providers + +------+ + | Care Placement Assistant Name | Role | Phone | [...] + + | 07/03/ | Telephone | [facility], | Care Plan | | 2019 | | GASTROENTEROLOGY | DANA Perry [address] | | | | | [address] [place] | [place], [address] | | | | | [address], [place] | [place], [place] | | | | | [address] | [address] | | | | | [phone] | | | +--------+ + + + [...]
--- OUTSIDE RECORDS SUMMARY | ~2020-01-14 | XMS | Encounter Summary ---
Demographics + + + | Address | [address] | | | [place] [address] | + + + | Home Phone [...] Samantha Ramos | ECON | [address] # | | | | | [place] | | | | | [address] | | + + + + + Care Team Providers + +------+ + | Care Computer Art Instructor Name | Role | Phone | [...] Pharmacy | | | | | | [address] | | | | | | [place], [place] | | | | | | [address] | | | | | | [phone] | | | +--------+ + + + [...] | | | | | [place] [address] [place], | | | | | | [place] [address] | | | | | | [phone] | | | | | | | | +--------+---------+ + + + documented as of this encounter Visit Diagnoses Not on filedocumented in this encounter"
--- OUTSIDE RECORDS SUMMARY | ~2020-01-14 | XMS | Encounter Summary ---
Demographics + + + | Address | [address] | | | [place] [address] | + + + | Home Phone [...] [place] | | | | | [address] | | + + + + + Care Team Providers + +------+ + | Care Powderer Name | Role | Phone | + [...] + + | 06/09/ | Hospital | [facility] | Diony Hollis, | | | 2019 - | Encounter | [facility] | [address] | | | | | CARE FLOOR [address] | [place] [address] | | | 06/10/ | | [address] | [phone] | | | 2019 | | [place], [place] | | | | | | [address] | Solomon Jonas MD [address] | | | | | [phone] | [address] | | | | | | [place] [address] | | | | | | [phone] | | | | | | | | | | | | Jannette Spears MD | | | | | | [address] | | | | | | [place] [address] | | | | | | [phone] | | | | | | | | | | | | Andrey Gatica DO | | | | | | [address] | | | | | | [place] [address] | | | | | | [phone] | | | | | | | [...] note might be different from th e diomedes. [facility] MEDICAL HOSPITALIST TEAM Patient leave AGAINST MEDICAL ADVICE documentation Pt. Name/Age/: Brooks Marquez 28 y.o. 1990 Date of Admission: 06/09/2019 Date of leaving hospital AGAINST MEDICAL ADVICE: 2018 PCP: Erich Yates Note radio script writer provider: Solomon Jonas MD HPI/Reason for Admission:-Chest pain with elevated troponin Hospital course, including complications: 28 years old gentleman with type 1 diabetes with renal complication and gastroparesis hyper tension chronic kidney disease stage III, chronic pain on narcotics status post right BKA fo r necrotizing fasciitis October 2018 transferred to [facility] from [facility] for anup st pain and elevated troponin Associated symptoms are diarrhea ongoing for which he stated as a chronic at 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 by gastric emptying study in 2004 by documentation Hemoglobin of 10.7 and WBC [...] insulin IV morphine and tra nsferred to [facility] due to elevated troponin EKG shows sinus tachycardia no acute ischemic brown e repeat troponin at [facility] was unremarkable by record Patient was admitted [...] a scheduled gastroenterology appointment in June at [facility] for p ossible gastric pacemaker acute on [...] both patient and mother requesting to leave [facility] MED[facility] ADVICE before I have a [...] 1 tablet by | | 0 | 09/16/ | | | (PRINIVIL, ZESTRIL) | mouth [...] - 06/10/2019 4:55 AM PDTPt transferred from [facility]. Admitted by Dr. Ramakrishna Spears. Ewa grier called at approximated 1368 as patient was getting very agitated and [...] time. Hourly rounding will cont inue. Felipa Hlil, RN documented i n this encounter Plan of [...] | | | POC | performed at [facility];[address] | | LABORATORY | | | | [address];[place], [place] | | | | | | [address] | | | | + + + + + + + + | Specimen | + + | | + + + + + + + | Performing | Address | City/State/Zipcode | Phone Number | | Organization | | | | + + + + + | [facility] | [address] | [place] [address] | [phone] | + + + + + Troponin I (06/10/2019 5:58 AM PDT) + + + + + + | Component | Value | Ref Range | Performed | Pathologist | | | | | At | Signature | + + + + + + | Troponin I | <0.006Comment: 0.04 | 0.00 - 0.04 | [facility] | | | | ng/mL or less [...] at | | | | | | [facility];[address] [facility] | | | | | | [facility];[place] [address] | | | | + + + + + + + + | Specimen | + + | | + + + + + + + | Performing | Address | City/State/Zipcode | Phone Number | | Organization | | | | + + + + + | [facility] | [address] | [place] [address] | [phone] | + + + + + Hemoglobin A1C (06/10/2019 5:58 AM PDT) + + + + + + | Component | Value | Ref Range | Performed | Pathologist | | | | | At | Signature | + + + + + + | Hemoglobin | 8.8 (H)Comment: HbA1c | 4.0 - 6.0 % | [facility] | | | A1c | method is [...] | 206 (H)Comment: | <154 mg/dL | [facility] | | | Average | Estimated Average | | LABORATORY | | | Glucose | Glucose calculated from | | | | | | hemoglobin A1c by use of | | | | | | the ADArecommended | | | | | | formula.Testing | | | | | | performed at [facility], [address] | | | | | | [address], | | | | | | [place] [address] | | | | + + + + + + + + | Specimen | + + | Blood | + + + + + + + | Performing | Address | City/State/Zipcode | Phone Number | | Organization | | | | + + + + + | [facility] | [address] | [place] [address] | [phone] | + + + + + TSH (06/10/2019 5:58 AM PDT) + + + + + + | Component | Value | Ref Range | Performed | Pathologist | | | | | At | Signature | + + + + + + | TSH | 0.811Comment: Testing | 0.450 - 5.100 | [facility] | | | | performed at [facility];[address] | uIU/mL | LABORATORY | | | | [address];[place], [place] | | | | | | [address] | | | | + + + + + + + + | Specimen | + + | Blood | + + + + + + + | Performing | Address | City/State/Zipcode | Phone Number | | Organization | | | | + + + + + | [facility] | [address] | [place] [address] | [phone] | + + + + + Basic [...] 46 (L)Comment: GFR <60: | >60 | [facility] | | | GFR | CHRONIC KIDNEY [...] | | | | | | MDRD IDMI traceable | | | | | | equation.Testing | | | | | | performed at [facility];[address] | | | | | | [facility];[place], [place] | | | | | | [address] | | | | + + + + + + + + | Specimen | + + | Blood | + + + + + + + | Performing | Address | City/State/Zipcode | Phone Number | | Organization | | | | + + + + + | [facility] | [address] | [place] [address] | [phone] | + + + + + CBC [...] [facility] | | | | performed at [facility];[address] | | LABORATORY | | | | [address];[place] | | | | | | [address] | | | | + + + + + + + + | Specimen | + + | Blood | + + + + + + + | Performing | Address | City/State/Zipcode | Phone Number | | Organization | | | | + + + + + | [facility] | [address] | [place] [address] | [phone] | + + + + + ECG [...] | | | POC | performed at [facility];[address] | | LABORATORY | | | | [address];[place] | | | | | | [address] | | | | + + + + + + + + | Specimen | + + | | + + + + + + + | Performing | Address | City/State/Zipcode | Phone Number | | Organization | | | | + + + + + | [facility] | [address] | [place] [address] | [phone] | + + + + + Troponin I (06/09/2019 11:38 PM PDT) + + + + + + | Component | Value | Ref Range | Performed | Pathologist | | | | | At | Signature | + + + + + + | Troponin I | <0.006Comment: 0.04 | 0.00 - 0.04 | [facility] | | | | ng/mL or less [...] at | | | | | | [facility];[address] | | | [address];[place] [address] | | | | + + + + + + + + | Specimen | + + | Blood | + + + + + + + | Performing | Address | City/State/Zipcode | Phone Number | | Organization | | | | + + + + + | [facility] | [address] | [place] [address] | [phone] | + + + + + Lipid Panel (06/09/2019 11:38 PM PDT) + + + + + + | Component | Value | Ref Range | Performed | Pathologist | | | | | At | Signature | + + + + + + | Cholesterol | 147 | <200 mg/dL | [facility] | | | | | | LABORATORY [...] | | | Calculated | performed at [facility], [address] | | LABORATORY | | | | [address], | | | | | | [place] [address] | | | | + + + + + + + + | Specimen | + + | Blood | + + + + + + + | Performing | Address | City/State/Zipcode | Phone Number | | Organization | | | | + + + + + | [facility] | [address] | [place] [address] | [phone] | + + + + + Troponin [...] at | | | | | | [facility];[address] [facility] | | | | | | [facility];[place] [address] | | | | + + + + + + + + | Specimen | + + | Blood | + + + + + + + | Performing | Address | City/State/Zipcode | Phone Number | | Organization | | | | + + + + + | [facility] | [address] | [place] [address] | [phone] | + + + + + POC Glucose (06/09/2019 8:30 PM PDT) + + + + + + | Component | Value | Ref Range | Performed | Pathologist | | | | | At | Signature | + + + + + + | Glucose, | 152 (H)Comment: Testing | 65 - 99 mg/dL | [facility] | | | POC | performed at [facility];[address] | | LABORATORY | | | | [address];[place] | | | | | | [address] | | | | + + + + + + + + | Specimen | + + | | + + + + + + + | Performing | Address | City/State/Zipcode | Phone Number | | Organization | | | | + + + + + | [facility] | [address] | [place] [address] | [phone] | + + + + + documented [...] | aluminum & magnesium | Given | 09/14/20 | 30 mLs | | | | [...]
--- OUTSIDE RECORDS SUMMARY | ~2020-01-14 | XMS | Clinical Summary ---
Demographics + + + | Address | [address] [facility] [address] | | | [place] [address] | + + + | Home Phone | | + + + | Preferred Language | Unknown | + + + | Marital Status | Unknown | + + + | Orthodoxy Affiliation | Unknown | + + + | Race | Unknown | + + + | Ethnic Group | Unknown | + + + Author + + + | Author | [email or web address] (Historical as of | | | 05-12-19) | + + + | Organization | [email or web address] (Historical as of | | | 05-12-19) [...] Providers + +------+ + | Care Customer Service Technician Name | Role | Phone [...] | CKD (chronic kidney disease), stage III ([facility]) | 01/15/2019 | + + + | [...] +------+-------+ + | MEDICAID | [place] | [id number] | | | [address] | | | N | | | | [place], [place] | | | [place] | | | | [address] | | | [employer] | | | | | + +--------+ [...] Self | [birth year] | Home: | [address] | | | al/Fam | | 1990 | [phone] [address] [place], | | | [place] | | | [address] | [place] [address] | + +--------+ +--------+ + +
--- OUTSIDE RECORDS SUMMARY | ~2020-01-14 | XMS | Encounter Summary ---
Demographics + + + | Address | [address] | | | [place] [address] | + + + | Home Phone [...] + | Author | [facility] | | | and [place] | + + + | Organization | [facility] | | | and [...] [place] | | | | | [address] | | + + + + + Care Team Providers + +------+ + | Care Lung Gun Operator Name | Role | Phone | + +------+ + | Erich Yates | PCP | | + +------+ + Encounter Details +--------+ + + + + | Date | Type | Department | Care Team | Description | +--------+ + + + + | 09/13/ | Orders Only | [facility] | Conversion | | | 2017 | | [place] | Transaction, | | | | | [address] | Provider Unknown | | | | | [address] [place], [place] | | | | | | [address] | (Fax) | | | | | [phone] | | | +--------+ + + + [...] - 1.030 | EXTERNAL | | | [place] | | | LAB | | + [...] - 1.030 | EXTERNAL | | | [place] | | | LAB | | + [...]
--- OUTSIDE RECORDS SUMMARY | ~2020-01-14 | XMS | Encounter Summary ---
Demographics + + + | Address | [address] | | | [place] [address] | + + + | Home Phone [...] Samantha Ramos | ECON | [address] # | | | | | [place] | | | | | [address] | | + + + + + Care Team Providers + +------+ + | Care Irrigator Sprinkling System Name | Role | Phone | + +------+ + | Erich Yates PA-C | PCP | | + +------+ + Reason for Referral Consultation (Routine) + +---------+ + + + + | Status | Reason | Specialty | Diagnoses / | Referred By | Referred To | | | | | Procedures | Contact | Contact | + +---------+ + + + + | Authorized | Other | Hematology & | Diagnoses | Rufino, | Rodney, | | | | Oncology | Anemia, | Lashawn Tan, | MD Nabeel | | | | | unspecified | [facility] [address] | [address] | | | | | type | [address] | [address]o | | | | | Procedures | [facility] | [place], [place] | | | | | CONSULT TO | Rd | [address] | | | | | HEMATOLOGY / | [place] | Phone: | | | | | ONCOLOGY | [address] | [phone] | | | | | [place] NEW | Phone: | Fax: | | | | | PATIENT | [phone] | [phone] | | | | | LEVEL V [place] | Fax: | | | | | | EST PATIENT | [phone] | | | | | | LEVEL V | | | + +---------+ + + + + PROC - Dept/Practice Procedure (Routine) +--------+--------+ + + + + | Status | Reason | Specialty | Diagnoses / | Referred By | Referred To | | | | | Procedures | Contact | Contact | +--------+--------+ + + + + | Closed | | Gastroenterol | Diagnoses | Kading, | Gas Endo | | | | ogy | Diabetic | Lashawn Tan, | [address] | | | | | gastroparesi | PA-C [address] | | | | | s (HCC) | [facility] | [place] for | | | | | Abdominal | [facility] | Health and | | | | | pain, | Rd | Healing, | | | | | chronic, | [place], [place] | [address] | | | | | epigastric | [address] | [place], [place] | | | | | Chronic | Phone: | [address] | | | | | diarrhea | [phone] | Phone: | | | | | Severe | Fax: | [phone] | | | | | protein-judy | [phone] | Fax: | | | | | danyel | | [phone] | | | | | malnutrition | | | | | | | (HCC) | | | | | | | Procedures | | | | | | | CONSULT TO | | | | | | | GI PROCEDURE | | | | | | | UNIT: EGD W | | | | | | | COLONOSCOPY | | | +--------+--------+ + + + + Reason for Visit + + + | Reason | Comments | + + + | Care Coordination | Local provider, local labs | + + + Encounter Details +--------+ + + + + | Date | Type | Department | Care Team | Description | +--------+ + + + + | 07/03/ | Telephone | Digestive Health | Lashawn Joy, | Care Coordination | | 2019 | | Center at [facility] [address] | PA-C [address] | (Local provider, | | | | [address] [facility] | [facility] [address] | local labs) | | | | for Health and | [place], [place] | | | | | [facility] [address] | [address] | | | | | [place], [place] | [phone] | | | | | [address] | | | | | | [phone] | | | +--------+ + + + [...] | | | | | [address] [place], | | | | | | [place] [address] | | | | | | [phone] | | | | | | | [...] severe protein-calorie malnutrition | + + | Anemia, unspecified type | + + documented in this encounter"
--- OUTSIDE RECORDS SUMMARY | ~2020-01-14 | XMS | Encounter Summary ---
Demographics + + + | Address | [address] | | | [place] [address] | + + + | Home Phone [...] Samantha Ramos | ECON | [address] | | | | | [place], [place] | | | | | [address] | | + + + + + Care Team Providers + +------+ + | Care Block Greaser Name | Role | Phone | + [...] as of this encounter Progress Notes Interface, Qa Automation Architect In - 04/25/2005 12:43 AM [facility] [id number] [facility] Date: 09/30/2004 Clinic: [facility] Subjective: Alin is an almost 14-year-old young boy with type 1 diabetes. The family is new to clinic, here to establish care for his ongoing diabetes management. Alin is usually followed by his primary care doctor, Dr. Mojica in [place]. The family does have several questions and are quite interactive in today's visit. Previous Diabetes Education: Alin was diagnosed with type 1 diabetes on April 2002, at that time, he was admitted to the hospital in [place], [place] where the family did receive initial [...] the football practice. Meal Planning: The pediatric radiologist Shannon Early did meet with the family [...] also involved in football. 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 I discussed the importance of [...] the family's first visit here to the [facility]. The family is [...] Diabetes Team. Estefany Hathaway R.N. / CONTRERAS [id number] / [id number] / [id number] / [id number] CDRCP Electronically signed by Estefany Hathaway 10-05-2004 [...] | | | | | [place] [address] [place], | | | | | | [place] [address] | | | | | | [phone] | | | | | | | | +--------+---------+ + + + documented as of this encounter Visit Diagnoses Not on filedocumented in this encounter
--- OUTSIDE RECORDS SUMMARY | ~2020-01-14 | XMS | Encounter Summary ---
Demographics + + + | Address | [address] | | | [place] [address] | + + + | Home Phone [...] Samantha Ramos | ECON | [address] # | | | | | [place] | | | | | [address] | | + + + + + Care Team Providers + +------+ + | Care Abalone Fisherman Name | Role | Phone | + [...] | | 2015 | | Center at [facility] [address] | | - General | | | | [facility] | | | | | | for Health and | | | | | | [facility], [address] | | | | | | [place], [place] | | | | | | [address] | | | | | | [phone] | | | +--------+ + + + [...] | | | | | Lily [address] [place], | | | | | | [place] [address] | | | | | | [phone] | | | | | | | | +--------+---------+ + + + documented as of this encounter Visit Diagnoses Not on filedocumented in this encounter"
--- OUTSIDE RECORDS SUMMARY | ~2020-01-14 | XMS | Encounter Summary ---
Demographics + + + | Address | [address] | | | [place] [address] | + + + | Home Phone [...] Samantha Ramos | ECON | [address] # | | | | | [place] | | | | | [address] | | + + + + + Care Team Providers + +------+ + | Care Director Custom Name | Role | Phone | + [...] Diabetic | Beth Dougherty, | Chh2 [address] | | | | | gastroparesi | AN[address] | | | | | s associated | [address] | [place] for | | | | | with type [address] | Health and | | | | | diabetes | [place], [place] | Healing, | | | | | mellitus | [address] | [address] | | | | | ([facility]) | Phone: | [place], [place] | | | | | Procedures | [phone] | [address] | | | | | CONSULT TO | Fax: | Phone: | | | | | GI PROCEDURE | [phone] | [phone] | | | | | UNIT: EGD | | Fax: | | | | | | | [phone] | + +--------+ + + + + [...] | | 2019 | | Center at [facility] [address] | AN[address] | EGD w/ pyloric | | | | [address] | [facility] [address] | botox) | | | | for Health and | [place], [place] | | | | | [facility] [address] | [address] | | | | | [place], [place] | [phone] | | | | | [address] | | | | | | [phone] | | | +--------+ + + + [...] | | | | | Lily [address] [place], | | | | | | [place] [address] | | | | | | [phone] | | | | | | | | +--------+---------+ + + + documented as of this encounter Visit Diagnoses + + | Diagnosis | + + | Diabetic gastroparesis associated with type 1 diabetes mellitus (HCC) - Primary | + + documented in this encounter"
--- OUTSIDE RECORDS SUMMARY | ~2020-01-14 | XMS | Encounter Summary ---
Demographics + + + | Address | [address] | | | [place] [address] | + + + | Home Phone | | + + + | Preferred Language | Unknown | + + + | Marital Status | Single | + + + | Christian Affiliation | NON | + + + [...] | Samantha Ramos | ECON | [address] # | | | | | [place] | | | | | [address] | | + + + + + Care Team Providers + +------+ + | Care Skid Strapper Name | Role | Phone | + [...] evaluation | | 2020 | cheduled | [facility] at | | | | | | [facility] | | | | | | [address] | | | | | | [facility] | | | | | | and Healing Building | | | | | | [address] [place], [place] | | | | | | [address] | | | | | | [phone] | | | +--------+ + + + [...] INSTRUCTIONS Eating/Drinking Instructions: Follow instructions provided by [facility] Endoscopy. You should have received these instruction s by mail or email. If you have not received them, contact Endoscopy at [phone]. General Medications Instructions Oral iron: If you [...] Procedure check-in location: Day Stay Unit - [facility], 4th floor Room 4519 Procedure Check in [...] ch as Uber/Lyft), or public transportation. An Uber/Lyft/tractor driver teamster does not count as the r esponsible [...] it is after office hours, call the [facility] siphon operator at [phone] and ask them to page the on-c [...] | | | | | [place] [address] [place], | | | | | | [place] [address] | | | | | | [phone] | | | | | | | | +--------+---------+ + + + documented as of this encounter Visit Diagnoses Not on filedocumented in this encounter"
--- OUTSIDE RECORDS SUMMARY | ~2020-01-14 | XMS | Encounter Summary ---
Demographics + + + | Address | [address] | | | [place] [address] | + + + | Home Phone [...] Samantha Ramos | ECON | [address] # | | | | | [place] | | | | | [address] | | + + + + + Care Team Providers + +------+ + | Care Statement Distribution Clerk Name | Role | Phone | + +------+ + | Neri Mojica MD | PCP | | + +------+ + Encounter Details +--------+ + + + + | Date | Type | Department | Care Team | Description | +--------+ + + + + | 06/24/ | Results | Orthopaedics at | [place], | | | 2005 | Only | [address] | CLERICAL COORDINATOR [address] | | | | | [address] | [address] | | | | | Mailcode: [id number] | [place] [address] | | | | | [facility] | [phone] | | | | | [place], [place] | | | | | | [address] | | | | | | [phone] | | | +--------+ + + + [...] | | | | | [address] [place], | | | | | | [place] [address] | | | | | | [phone] | | | | | | | | +--------+---------+ + + + + +---------+--------+ + + | Name | Type | Priori | Associated Diagnoses | Date/Time | | | | ty | | | + +---------+--------+ + + | CT OUTSIDE FILMS | Imaging | Routin | | 06/24/2006 12:00 AM | | | | e | | PDT | + +---------+--------+ + + documented as of this encounter Visit Diagnoses Not on filedocumented in this encounter"
--- OUTSIDE RECORDS SUMMARY | ~2020-01-14 | XMS | Encounter Summary ---
Demographics + + + | Address | [address] | | | [place] [address] | + + + | Home Phone [...] Samantha Ramos | ECON | [address] # | | | | | [place], [place] | | | | | [address] | | + + + + + Care Team Providers + +------+ + | Care Claims Customer Service Representative Name | Role | Phone | [...] | | | | | [place], | | | | | | [place] [address] | | | | | | [phone] | | | | | | | | +--------+---------+ + + + documented as of this encounter Visit Diagnoses Not on filedocumented in this encounter"
--- OUTSIDE RECORDS SUMMARY | ~2020-01-14 | XMS | Encounter Summary ---
Demographics + + + | Address | [address] | | | [place] [address] | + + + | Home Phone | | + + + | Preferred Language | Unknown | + + + | Marital Status | Single | + + + | Druze Affiliation | Unknown | + + + | Race | Unknown | + + + | Ethnic Group | Unknown | + + + Author + + + | Author | [facility] | | | and [place] | + + + | Organization | [facility] | | | and [...] [place] | | | | | [address] | | + + + + + Care Team Providers + +------+ + | Care Fabric Worker Name | Role | Phone | [...] + + | 09/19/ | Hospital | [facility] | Tc Mora | Right ureteral | | 2018 - | Encounter | [facility] | MD [address] | stone; Acute kidney | | | | [address] | [address] [place] | injury (HCC); Flank | | 09/20/ | | [place] [address] | [address] | pain; | | 2018 | | [phone] | | Hydronephrosis, | | | | [...] might be differ ent from the original. [facility] Urology Progress Note Brooks Marquez is now [...] + | [facility] | [address] | [place] | [phone] | | [facility] | | [address] | | | - LABORATORY | | [...] mL/min/1.73m2 | [facility] | | | MOZAMBICAN | RATE,ESTIMATED | | MEDICAL | | | | mL/min/1.52o7Slrr than | | CENTER - | | [...] + | [facility] | [address] | [place] | [phone] | | [facility] | | [address] | | | - LABORATORY | | [...] [address] | [place] | [phone] | | [facility] | | [address] | | | - LABORATORY | | [...] this test. These results should be | [facility] | | integrated into the clinical context for interpretation. | [facility] | | | - LABORATORY | + + + + + + + + | Performing | Address | City/State/Zipcode | Phone Number | | Organization | | | | + + + + + | [facility] | [address] | [place], [place] | [phone] | | [facility] | | [address] | | | - LABORATORY | | [...] [address] | [place] | [phone] | | [facility] | | [address] | | | - LABORATORY | | [...] - 1.030 | [facility] | | | [place] | | | [facility] | | [...] [address] | [place] | [phone] | | [facility] | | [address] | | | - LABORATORY | | [...] + | [facility] | [address] | [place] | [phone] | | [facility] | | [address] | | | - LABORATORY | | [...] [address] | [place] | [phone] | | [facility] | | [address] | | | - LABORATORY | | [...] [address] | [place] | [phone] | | [facility] | | [address] | | | - LABORATORY | | [...] + | [facility] | [address] | [place] | [phone] | | [facility] | | [address] | | | - LABORATORY | | [...] mL/min/1.73m2 | [facility] | | | MOZAMBICAN | RATE,ESTIMATED | | MEDICAL | | | | mL/min/1.82h0Lgnh than | | CENTER - | | [...] [address] | [place] | [phone] | | [facility] | | [address] | | | - LABORATORY | | [...] + | [facility] | [address] | [place] | [phone] | | [facility] | | [address] | | | - LABORATORY | | [...] MD | | | | | | ([id number]) on 09/21/2018 | | | | | [...] [address] | [place] | [phone] | | [facility] | | [address] | | | - LABORATORY | | [...] + | [facility] | [address] | [place] | [phone] | | [facility] | | [address] | | | - LABORATORY | | [...] mL/min/1.73m2 | [facility] | | | MOZAMBICAN | RATE,ESTIMATED | | MEDICAL | | | | mL/min/1.40s4Izez than | | CENTER - | | [...] [address] | [place] | [phone] | | [facility] | | [address] | | | - LABORATORY | | [...] + | [facility] | [address] | [place] | [phone] | | [facility] | | [address] | | | - LABORATORY | | [...] mL/min/1.73m2 | [facility] | | | MOZAMBICAN | RATE,ESTIMATED | | MEDICAL | | | | mL/min/1.66x7Ccji than | | CENTER - | | [...] [address] | [place] | [phone] | | [facility] | | [address] | | | - LABORATORY | | [...] + | [facility] | [address] | [place] | [phone] | | [facility] | | [address] | | | - LABORATORY | | [...] Michelle | | | | | | at:[phone]. | | | | + + + [...] + | Performed at: 01 - [facility] [address] [facility], | REFERENCE LAB | | [place], [place] [id number] Travel Writer: Sarabjit Love MD, Phone: | MICHELLE NORTON | | [phone] | | + + + + + + + + | Performing | Address | City/State/Zipcode | Phone Number | | Organization | | | | + + + + + | REFERENCE LAB | [address] | [place], [place] | [phone] | | [facility] | [address] | [address] | | + + + + + [...] | [address] | [place] | [phone] | | [facility] | | [address] | | | - LABORATORY | | [...] | | | | | | | 4519-8331 Use NIGHT DOSE for | | | | | | | doses scheduled: HS, 3AM, | | | | | | | Nighttime 6696-7966, | | | | | | + [...]
--- OUTSIDE RECORDS SUMMARY | ~2020-01-14 | XMS | Encounter Summary ---
Demographics + + + | Address | [address] | | | [place] [address] | + + + | Home Phone [...] Samantha Ramos | ECON | [address] # | | | | | [place] | | | | | [address] | | + + + + + Care Team Providers + +------+ + | Care Animal Shelter Manager Name | Role | Phone | [...] | Only | [address] | INSURANCE SALES REPRESENTATIVE [address] | | | | | [address] | [address] | | | | | Mailcode: PV430 | [place] [address] | | | | | [facility] | [phone] | | | | | [place], [place] | | | | | | [address] | | | | | | [phone] | | | +--------+ + + + [...] | | | | | [address] [place], | | | | | | [place] [address] | | | | | | [phone] | | | | | | | [...]
--- OUTSIDE RECORDS SUMMARY | ~2020-01-14 | XMS | Encounter Summary ---
Demographics + + + | Address | [address] | | | [place] [address] | + + + | Home Phone [...] Samantha Ramos | ECON | [address] # | | | | | [place] | | | | | [address] | | + + + + + Care Team Providers + +------+ + | Care Patroller Name | Role | Phone | + [...] | | 2019 | | Center at [facility] [address] | [address] | Appointment | | | | [address] [facility] | [address] [place], | | | | | for Health and | [place] [address] | | | | | [place] [address] | [phone] | | | | | [place], [place] | | | | | | [address] | | | | | | [phone] | | | +--------+ + + + [...] | | | | | [address] [place], | | | | | | [place] [address] | | | | | | [phone] | | | | | | | | +--------+---------+ + + + documented as of this encounter Visit Diagnoses Not on filedocumented in this encounter"
--- OUTSIDE RECORDS SUMMARY | ~2020-01-14 | XMS | Encounter Summary ---
Demographics + + + | Address | [address] | | | [place] [address] | + + + | Home Phone [...] Author | [facility] | + + + | Organization | [facility] | + + + | Address | Unknown | + + + | Phone | Unavailable | + + + Support + + + + + | Name | Relationship | Address | Phone | + + + + + | Samantha Ramos | ECON | [address] # | | | | | [place] | | | | | [address] | | + + + + + Care Team Providers + +------+ + | Care Biofuels Plant Construction Worker Name | Role | Phone | [...] [address] | | | | | [place], [place] | [place], [place] | | | | | [address] | [address] | | | | | [phone] | [phone] | | | | | | | [...] | | | | | [address] [place], | | | | | | [place] [address] | | | | | | [phone] | | | | | | | [...] | | | performed by [facility] | [facility] | | | | | [facility] | | | | | | Laboratories. | | | | + + + + + + + + | Specimen | + + | | + + + + + + + | Performing | Address | City/State/Zipcode | Phone Number | | Organization | | | | + + + + + | [facility] | [address] | [place] [address] | | | LABORATORY | | | [...] | | | SERUM | performed by [facility] | | | | | | [facility] | | | | | | Laboratories. | | | | + + + + + + + + | Specimen | + + | | + + + + + + + | Performing | Address | City/State/Zipcode | Phone Number | | Organization | | | | + + + + + | [facility] | [address] | [place] [address] | | | LABORATORY | | | | + + + + + documented in this encounter Visit Diagnoses Not on filedocumented in this encounter"
--- OUTSIDE RECORDS SUMMARY | ~2020-01-14 | XMS | Encounter Summary ---
Demographics + + + | Address | [address] | | | [place] [address] | + + + | Home Phone [...] | Samantha Ramos | ECON | [address] # | | | | | [place] | | | | | [address] | | + + + + + Care Team Providers + +------+ + | Care Youtuber Name | Role | Phone | + [...] | | 2020 | | Center at [facility] [address] | [address] | | | | | [address] [facility] | [address] [place], | | | | | [facility] and | [place] [address] | | | | | [facility] [address] | [phone] | | | | | [place], [place] | | | | | | [address] | | | | | | [phone] | | | +--------+ + + + [...] | | | | | [address] [place], | | | | | | [place] [address] | | | | | | [phone] | | | | | | | | +--------+---------+ + + + documented as of this encounter Visit Diagnoses Not on filedocumented in this encounter"
--- OUTSIDE RECORDS SUMMARY | ~2020-01-14 | XMS | Encounter Summary ---
Demographics + + + | Address | [address] | | | [place] [address] | + + + | Home Phone [...] Author + + + | Author | [facility] | + + + | Organization | [facility] | + + + | Address | Unknown | + + + | Phone | Unavailable | + + + Support + + + + + | Name | Relationship | Address | Phone | + + + + + | Samantha Ramos | ECON | [address] # | | | | | [place] | | | | | [address] | | + + + + + Care Team Providers + +------+ + | Care Skip Hoist Operator Name | Role | Phone | [...] Pharmacy | | | | | | [address] | | | | | | [place], [place] | | | | | | [address] | | | | | | [phone] | | | +--------+ + + + [...] | | | | | [address] [place], | | | | | | [place] [address] | | | | | | [phone] | | | | | | | | +--------+---------+ + + + documented as of this encounter Visit Diagnoses Not on filedocumented in this encounter"
--- OUTSIDE RECORDS SUMMARY | ~2020-01-14 | XMS | Encounter Summary ---
Demographics + + + | Address | [address] | | | [place] [address] | + + + | Home Phone | | + + + | Preferred Language | Unknown | + + + | Marital Status | Single | + + + | Muslim Affiliation | Unknown | + + + [...] [place] | | | | | [address] | | + + + + + Care Team Providers + +------+ + | Care Commissioner Conservation Of Resources Name | Role | Phone | + [...] | +--------+ + + + + | 03/13/ | Telephone | [facility] [place] | [facility], | Referral | | 2019 | | GASTROENTEROLOGY | [address] | | | | | [address] [place] | [place], [address] | | | | | [address] [place], [place] | [place], [place] | | | | | [address] | [address] | | | | | [phone] | | | +--------+ + + + [...]
--- OUTSIDE RECORDS SUMMARY | ~2020-01-14 | XMS | Encounter Summary ---
Demographics + + + | Address | [address] | | | [place] [address] | + + + | Home Phone [...] Samantha Ramos | ECON | [address] # | | | | | [place] | | | | | [address] | | + + + + + Care Team Providers + +------+ + | Care Brush Cutter Name | Role | Phone | [...] Pharmacy | | | | | | [address] | | | | | | [place], [place] | | | | | | [address] | | | | | | [phone] | | | +--------+ + + + [...] | | | | | [address] [place], | | | | | | [place] [address] | | | | | | [phone] | | | | | | | | +--------+---------+ + + + documented as of this encounter Visit Diagnoses Not on filedocumented in this encounter"
--- OUTSIDE RECORDS SUMMARY | ~2020-01-14 | XMS | Encounter Summary ---
Demographics + + + | Address | [address] | | | [place] [address] | + + + | Home Phone [...] Author | [facility] | + + + | Organization | [facility] | + + + | Address | Unknown | + + + | Phone | Unavailable | + + + Support + + + + + | Name | Relationship | Address | Phone | + + + + + | Samantha Ramos | ECON | [address] # | | | | | [place] | | | | | [address] | | + + + + + Care Team Providers + +------+ + | Care Web Marketing Coordinator Name | Role | Phone | [...] Center at [facility] [address] | [place] | Review | | | | [address] [facility] | [address] | | | | | for Health and | [place], [place] | | | | | [place] [address] | [address] | | | | | [place], [place] | [phone] | | | | | [address] | | | | | | [phone] | | | +--------+ + + + [...] | | | | | [address] [place], | | | | | | [place] [address] | | | | | | [phone] | | | | | | | | +--------+---------+ + + + documented as of this encounter Visit Diagnoses Not on filedocumented in this encounter"
--- OUTSIDE RECORDS SUMMARY | ~2020-01-14 | XMS | Encounter Summary ---
Demographics + + + | Address | [address] | | | [place] [address] | + + + | Home Phone [...] + + + | Author | [facility] | | | and [place] | + + + | Organization | [facility] | | | [...] [place] | | | | | [address] | | + + + + + Care Team Providers + +------+ + | Care Technical Services Manager Name | Role | Phone | + +------+ + | Erich Yates | PCP | | + +------+ + Encounter Details +--------+ + + + + | Date | Type | Department | Care Team | Description | +--------+ + + + + | 02/01/ | Abstract | [facility] | Divya, | | | 2018 | | GASTROENTEROLOGY | [address] | | | | | [address] [facility] | [place]. | | | | | [address] [place], [place] | [place] [address] | | | | | [address] | | | | | | [phone] | | | +--------+ + + + [...] - 1.03 | EXTERNAL | | | [place], | | | LAB | | | [...]
--- OUTSIDE RECORDS SUMMARY | ~2020-01-14 | XMS | Encounter Summary ---
Demographics + + + | Address | [address] | | | [place] [address] | + + + | Home Phone | | + + + | Preferred Language | Unknown | + + + | Marital Status | Single | + + + | Church Affiliation | NON | + + + [...] Samantha Ramos | ECON | [address] # | | | | | [place] | | | | | [address] | | + + + + + Care Team Providers + +------+ + | Care Agency Recruiter Name | Role | Phone | + [...] | Procedural Unit at | MD Jerome [address] | | | | | [address] | [facility] | | | | | [address] | [place], [place] | | | | | [place], | [address] | | | | | 4th floor [place], | [phone] | | | | | [place] [address] | | | | | | [phone] | | | +--------+ + + + [...] | | | | | [address] [place], | | | | | | [place] [address] | | | | | | [phone] | | | | | | | | +--------+---------+ + + + documented as of this encounter Visit Diagnoses Not on filedocumented in this encounter"
--- OUTSIDE RECORDS SUMMARY | ~2020-01-14 | XMS | Encounter Summary ---
Demographics + + + | Address | [address] | | | [place] [address] | + + + | Home Phone [...] [place] | | | | | [address] | | + + + + + Care Team Providers + +------+ + | Care Solar Development Engineer Name | Role | Phone | [...] + + | 06/09/ | Hospital | [facility] | Diony Hollis, | | | 2019 - | Encounter | [facility] | [address] | | | | | CARE FLO[address] | [place] [address] | | | 06/10/ | | [address] | [phone] | | | 2019 | | [place], [place] | | | | | | [address] | Solomon Jonas MD [address] | | | | | [phone] | [address] | | | | | | [place] [address] | | | | | | [phone] | | | | | | | | | | | | Jannette Spears MD | | | | | | [address] | | | | | | [place] [address] | | | | | | [phone] | | | | | | | | | | | | Andrey Gatica DO | | | | | | [address] | | | | | | [place] [address] | | | | | | [phone] | | | | | | | [...] might be different from th e diomedes. [facility] MEDICAL HOSPITALIST TEAM Patient leave AGAINST MEDICAL ADVICE documentation Pt. Name/Age/: Brooks Marquez 28 y.o. 1990 Date of Admission: 06/09/2019 Date of leaving hospital AGAINST MEDICAL ADVICE: 2018 PCP: Erich Yates Note investment underwriter provider: Solomon Jonas MD HPI/Reason for Admission:-Chest pain with elevated troponin Hospital course, including complications: 28 years old gentleman with type 1 diabetes with renal complication and gastroparesis hyper tension chronic kidney disease stage III, chronic pain on narcotics status post right BKA fo r necrotizing fasciitis October 2018 transferred to [facility] from 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 [place] and EGD with history of gastric ulcers He also have gastropathy which was documented in [facility] by gastric emptying study in 2004 by [...] insulin IV morphine and tra nsferred to [facility] due to elevated troponin EKG shows sinus tachycardia no acute ischemic brown e repeat troponin at [facility] was unremarkable by record Patient was admitted [...] a scheduled gastroenterology appointment in June at [facility] for p ossible gastric pacemaker acute on [...] both patient and mother requesting to leave [facility] MEDICAL ADVICE before I have a [...] - 06/10/2019 4:55 AM PDTPt transferred from [facility] Admitted by Dr. Ramakrishna Spears. Ewa grier called at approximated [phone] as patient was getting very agitated and [...] | | | POC | performed at [facility];[address] | | LABORATORY | | | | [address];[place], [place] | | | | | | [address] | | | | + + + + + + + + | Specimen | + + | | + + + + + + + | Performing | Address | City/State/Zipcode | Phone Number | | Organization | | | | + + + + + | [facility] | [address] | [place] [address] | [phone] | + + + + + Troponin I (06/10/2019 5:58 AM PDT) + + + + + + | Component | Value | Ref Range | Performed | Pathologist | | | | | At | Signature | + + + + + + | Troponin I | <0.006Comment: 0.04 | 0.00 - 0.04 | [facility] | | | | ng/mL or [...] at | | | | | | [facility];[address] [facility] | | | | | | [facility];[place] [address] | | | | + + + + + + + + | Specimen | + + | | + + + + + + + | Performing | Address | City/State/Zipcode | Phone Number | | Organization | | | | + + + + + | [facility] | [address] | [place] [address] | [phone] | + + + + + Hemoglobin A1C (06/10/2019 5:58 AM PDT) + + + + + + | Component | Value | Ref Range | Performed | Pathologist | | | | | At | Signature | + + + + + + | Hemoglobin | 8.8 (H)Comment: HbA1c | 4.0 - 6.0 % | [facility] | | | A1c | method [...] | | | | | performed at [facility], [address] | | | | | | [address], | | | | | | [place] [address] | | | | + + + + + + + + | Specimen | + + | Blood | + + + + + + + | Performing | Address | City/State/Zipcode | Phone Number | | Organization | | | | + + + + + | [facility] | [address] | [place] [address] | [phone] | + + + + + TSH (06/10/2019 5:58 AM PDT) + + + + + + | Component | Value | Ref Range | Performed | Pathologist | | | | | At | Signature | + + + + + + | TSH | 0.811Comment: Testing | 0.450 - 5.100 | [facility] | | | | performed at [facility];[address] | uIU/mL | LABORATORY | | | | [address];[place], [place] | | | | | | [address] | | | | + + + + + + + + | Specimen | + + | Blood | + + + + + + + | Performing | Address | City/State/Zipcode | Phone Number | | Organization | | | | + + + + + | [facility] | [address] | [place] [address] | [phone] | + + + + + Basic [...] 46 (L)Comment: GFR <60: | >60 | [facility] | | | GFR | CHRONIC [...] | | | | | | MDRD IDHI traceable | | | | | | equation.Testing | | | | | | performed at [facility];[address] | | | | | | [facility];[place], [place] | | | | | | [address] | | | | + + + + + + + + | Specimen | + + | Blood | + + + + + + + | Performing | Address | City/State/Zipcode | Phone Number | | Organization | | | | + + + + + | [facility] | [address] | [place] [address] | [phone] | + + + + + CBC [...] [facility] | | | | performed at [facility];[address] | | LABORATORY | | | | [address];[place] | | | | | | [address] | | | | + + + + + + + + | Specimen | + + | Blood | + + + + + + + | Performing | Address | City/State/Zipcode | Phone Number | | Organization | | | | + + + + + | [facility] | [address] | [place] [address] | [phone] | + + + + + ECG [...] | | | POC | performed at [facility];[address] | | LABORATORY | | | | [address];[place] | | | | | | [address] | | | | + + + + + + + + | Specimen | + + | | + + + + + + + | Performing | Address | City/State/Zipcode | Phone Number | | Organization | | | | + + + + + | [facility] | [address] | [place] [address] | [phone] | + + + + + Troponin I (06/09/2019 11:38 PM PDT) + + + + + + | Component | Value | Ref Range | Performed | Pathologist | | | | | At | Signature | + + + + + + | Troponin I | <0.006Comment: 0.04 | 0.00 - 0.04 | [facility] | | | | ng/mL or [...] at | | | | | | [facility];[address];[place] [address] | | | | + + + + + + + + | Specimen | + + | Blood | + + + + + + + | Performing | Address | City/State/Zipcode | Phone Number | | Organization | | | | + + + + + | [facility] | [address] | [place] [address] | [phone] | + + + + + Lipid [...] | | | Calculated | performed at [facility], [address] | | LABORATORY | | | | [address], | | | | | | [place] [address] | | | | + + + + + + + + | Specimen | + + | Blood | + + + + + + + | Performing | Address | City/State/Zipcode | Phone Number | | Organization | | | | + + + + + | [facility] | [address] | [place] [address] | [phone] | + + + + + Troponin [...] at | | | | | | [facility];[address] [facility] | | | | | | [facility];[place] [address] | | | | + + + + + + + + | Specimen | + + | Blood | + + + + + + + | Performing | Address | City/State/Zipcode | Phone Number | | Organization | | | | + + + + + | [facility] | [address] | [place] [address] | [phone] | + + + + + POC Glucose (06/09/2019 8:30 PM PDT) + + + + + + | Component | Value | Ref Range | Performed | Pathologist | | | | | At | Signature | + + + + + + | Glucose, | 152 (H)Comment: Testing | 65 - 99 mg/dL | [facility] | | | POC | performed at [facility];[address] | | LABORATORY | | | | [address];[place] | | | | | | [address] | | | | + + + + + + + + | Specimen | + + | | + + + + + + + | Performing | Address | City/State/Zipcode | Phone Number | | Organization | | | | + + + + + | [facility] | [address] | [place] [address] | [phone] | + + + + + documented [...]
--- OUTSIDE RECORDS SUMMARY | ~2020-01-14 | XMS | Encounter Summary ---
Demographics + + + | Address | [address] | | | [place] [address] | + + + | Home Phone [...] | Samantha Ramos | ECON | [address] # | | | | | [place], [place] | | | | | [address] | | + + + + + Care Team Providers + +------+ + | Care Hide Dropper Name | Role | Phone | + [...] as of this encounter Progress Notes Interface, Appliance Fixer In - 04/25/2005 12:43 AM [facility] [id number] [place] Clinic Date: 09/30/2004 Clinic: [facility] Subjective: Alin is an almost 14-year-old young boy with type 1 diabetes. The family is new to clinic, here to establish care for his ongoing diabetes management. Alin is usually followed by his primary care doctor, Dr. Mojica in [place]. The family does have several questions and are quite interactive in today's visit. Previous Diabetes Education: Alin was diagnosed with type 1 diabetes on April 2002, at that time, he was admitted to the hospital in [place], [place] where the family did receive initial [...] to the football practice. Meal Planning: The apartment assistant manager Shannon Early did meet with the family [...] also involved in football. 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 I discussed the importance of [...] family's first visit here to the [facility]. The family is [...] Diabetes Team. Estefany Hathaway R.N. / CONTRERAS [id number] / [id number] / [id number] / 96899 CDRCP Electronically signed by Estefany Hathaway 10-05-2004 [...] | | | | | [address] [place], | | | | | | [place] [address] | | | | | | [phone] | | | | | | | | +--------+---------+ + + + documented as of this encounter Visit Diagnoses Not on filedocumented in this encounter
--- OUTSIDE RECORDS SUMMARY | ~2020-01-14 | XMS | Encounter Summary ---
Demographics + + + | Address | [address] | | | [place] [address] | + + + | Home Phone [...] Samantha Ramos | ECON | [address] # | | | | | [place] | | | | | [address] | | + + + + + Care Team Providers + +------+ + | Care Gis Coordinator Name | Role | Phone | [...] | | 2015 | | Center at [facility] [address] | | - General | | | | [facility] | | | | | | for Health and | | | | | | [facility], [address] | | | | | | [place], [place] | | | | | | [address] | | | | | | [phone] | | | +--------+ + + + [...] | | | | | [address] [place], | | | | | | [place] [address] | | | | | | [phone] | | | | | | | | +--------+---------+ + + + documented as of this encounter Visit Diagnoses Not on filedocumented in this encounter"
--- OUTSIDE RECORDS SUMMARY | ~2020-01-14 | XMS | Encounter Summary ---
Demographics + + + | Address | [address] | | | [place] [address] | + + + | Home Phone [...] | Samantha Ramos | ECON | [address] # | | | | | [place] | | | | | [address] | | + + + + + Care Team Providers + +------+ + | Care Official Greeter Name | Role | Phone | [...] 2005 | Only | [address] | [phone] | | | | | Rd Mailcode: [address] | | | | | | [place], [place] | | | | | | [address] | | | | | | [phone] | | | +--------+ + + + [...] | | | | | [address] [place], | | | | | | [place] [address] | | | | | | [phone] | | | | | | | [...]
--- OUTSIDE RECORDS SUMMARY | ~2020-01-14 | XMS | Encounter Summary ---
Demographics + + + | Address | [address] | | | [place] [address] | + + + | Home Phone | | + + + | Preferred Language | Unknown | + + + | Marital Status | Single | + + + | Restorationism Affiliation | NON | + + + [...] Samantha Ramos | ECON | [address] # | | | | | [place] | | | | | [address] | | + + + + + Care Team Providers + +------+ + | Care Junior Copywriter Name | Role | Phone | + [...] | | | | | diabetes | [place], [place] | floor | | | | | mellitus | [address] | [place], [place] | | | | | (HCC) | Phone: | [address] | | | | | Procedures | [phone] | Phone: | | | | | CONSULT TO | Fax: | [phone] | | | | | ENDOSCOPY | [phone] | Fax: | | | | | UNIT: EGD | | [phone] | + +--------+ + + + + [...] | | 2020 | | Center at [facility] [address] | [address] | | | | | [facility] | [address] [place], | | | | | [facility] and | [place] [address] | | | | | [place] [address] | [phone] | | | | | [place], [place] | | | | | | [address] | | | | | | [phone] | | | +--------+ + + + [...] | | | | | [address] [place], | | | | | | [place] [address] | | | | | | [phone] | | | | | | | | +--------+---------+ + + + documented as of this encounter Visit Diagnoses + + | Diagnosis | + + | Diabetic gastroparesis associated with type 1 diabetes mellitus (HCC) - Primary | + + documented in this encounter"
--- OUTSIDE RECORDS SUMMARY | ~2020-01-14 | XMS | Encounter Summary ---
Demographics + + + | Address | [address] | | | [place] [address] | + + + | Home Phone [...] Samantha Ramos | ECON | [address] # | | | | | [place] | | | | | [address] | | + + + + + Care Team Providers + +------+ + | Care Milk Bottler Name | Role | Phone | + [...] 2015 | | Center at [facility] [address] | | - General | | | | [facility] | | | | | | for Health and | | | | | | [facility], [address] | | | | | | [place], [place] | | | | | | [address] | | | | | | [phone] | | | +--------+ + + + [...] | | | | | | [place] [address] [place], | | | | | | [place] [address] | | | | | | [phone] | | | | | | | | +--------+---------+ + + + documented as of this encounter Visit Diagnoses Not on filedocumented in this encounter"
--- OUTSIDE RECORDS SUMMARY | ~2020-01-14 | XMS | Encounter Summary ---
Demographics + + + | Address | [address] | | | [place] [address] | + + + | Home Phone [...] [place] | | | | | [address] | | + + + + + Care Team Providers + +------+ + | Care Emergency Management Program Specialist Name | Role | Phone | [...] | Services | ogy | Diabetic | [facility], | Greg Bernardo MD | | | Required | | gastroparesi | [place], | [address] | | | | | s (HCC) | TURRET LATHE SET UP OPERATOR [address] | | | | | Malnutrition | [place], [place] | [address] | | | | | , | [address] [place] | [place], [place] | | | | | unspecified | [place], [place] | [address] | | | | | type (HCC) | [address] | Phone: | | | | | Weight loss | Phone: | [phone] | | | | | | [phone] | Fax: | | | | | | Fax: | [phone] | | | | | | [phone] | | +--------+ + + + + [...] | [address] | [place], [place] [address] | (HCC) (Primary Dx); | | | | [address] [place], [place] | [place] | Diabetic | | | | [address] | [address] | gastroparesis (HCC); | | | | [phone] | | Weight loss | +--------+ + [...] type | | | | | | (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
--- OUTSIDE RECORDS SUMMARY | ~2020-01-14 | XMS | Encounter Summary ---
[...] Samantha Ramos | ECON | [address] # | | | | | [place] | | | | | [address] | | + + + + + Care Team Providers + +------+ + | Care Qa Automation Developer Name | Role | Phone | [...] | | Endocrinology at | MD [address] [facility] | | | | | [address] | [address] | | | | | [facility] | [place], [place] | | | | | [address] | [address] | | | | | [place] | [phone] | | | | | [place], [place] | | | | | | [address] | | | | | | [phone] | | | +--------+--------+ + + + [...] | | | | | [address] [place], | | | | | | [place] [address] | | | | | | [phone] | | | | | | | | +--------+---------+ + + + documented as of this encounter Visit Diagnoses Not on filedocumented in this encounter"
--- OUTSIDE RECORDS SUMMARY | ~2020-01-14 | XMS | Encounter Summary ---
Demographics + + + | Address | [address] | | | [place] [address] | + + + | Home Phone | | + + + | Preferred Language | Unknown | + + + | Marital Status | Single | + + + | Yarsanism Affiliation | NON | + + + | Race | White | + + + | Ethnic Group | Not or | + + + Author + + + | Author | [facility] | + + + | Organization | [facility] | + + + | Address | Unknown | + + + | Phone | Unavailable | + + + Support + + + + + | Name | Relationship | Address | Phone | + + + + + | Samantha Ramos | ECON | [address] # | | | | | [place] | | | | | [address] | | + + + + + Care Team Providers + +------+ + | Care Journalism Professor Name | Role | Phone | [...] | | | | | [place] | [facility] [address] | | | | | | CLINIC | [place] | | | | | | FIFI | [place] | | | | | | BUILDING | [place], [place] | | | | | | [address] | [address] | | | | | | [address] | Phone: | | | | | | [place], | [phone] | | | | | | [place] [address] | Fax: | | | | | | Phone: | [phone] | | | | | | [phone] | | | | | | | Fax: | | | | | | | [phone] | | +--------+--------+ + + + + Encounter Details +--------+ + + + + | Date | Type | Department | Care Team | Description | +--------+ + + + + | 11/02/ | Office | Pediatric | Ashanti Roqeu, | Progress Note | | 2006 | Visit-ECX | Endocrinology at | [address] | | | | | [place] | [address] | | | | | [facility] | [place], [place] | | | | | [address] | [address] | | | | | [place] | [phone] | | | | | [place], [place] | | | | | | [address] | | | | | | [phone] | | | +--------+ + + + [...] as of this encounter Progress Notes Interface, Risk Control Product Liability Director In - 12/15/2006 6:28 AM JOHNNY [id number] NAHOMY Durbin [id number] Clinic Date: 11/02/2006 Clinic: Pediatric Endocrinology Problem [...] regimen as necessary. Ashanti Roque M.D. / [id number] / [id number] / [id number] / [id number] cc: Neri Mojica M.D. [address] [place], [place] MedRecNo: [id number], Account: [id number], DocSeq: [id number] Addendum December 09 2006 Alin's random urine [...] | | | | | [place], | | | | | | [place] [address] | | | | | | [phone] | | | | | | | [...] + + + + | [facility] | [address] | [place], [place] | | | [facility] | [facility] | [address] | | | TESTS | | | | + + + + + | [facility] | [address] | [place], [place] | | | TESTS | [facility] | [address] | | + + + + + documented in this encounter Visit Diagnoses Not on filedocumented in this encounter"
--- OUTSIDE RECORDS SUMMARY | ~2020-01-14 | XMS | Encounter Summary ---
Demographics + + + | Address | [address] | | | [place] [address] | + + + | Home Phone [...] [place] | | | | | [address] | | + + + + + Care Team Providers + +------+ + | Care Agricultural Produce Packer Name | Role | Phone | + [...] | | [address] [place] | [place] [address] | | | | | [place] [address] | | | | | | [phone] | | | +--------+ + + + [...]
--- OUTSIDE RECORDS SUMMARY | ~2020-01-14 | XMS | Encounter Summary ---
Demographics + + + | Address | [address] | | | [place] [address] | + + + | Home Phone [...] [place] | | | | | [address] | | + + + + + Care Team Providers + +------+ + | Care Meat And Poultry Inspector Name | Role | Phone | + +------+ + | Erich Yates | PCP | | + +------+ + Encounter Details +--------+ + + + + | Date | Type | Department | Care Team | Description | +--------+ + + + + | 09/13/ | Orders Only | [facility] | Conversion | | | 2017 | | [place]PH[place]OLOGY [place] | Transaction, | | | | | [address] | Provider Unknown | | | | | [address] [place], [place] | | | | | | [address] | (Fax) | | | | | [phone] | | | +--------+ + + + [...] - 1.030 | EXTERNAL | | | [place] | | | LAB | | + [...] - 1.030 | EXTERNAL | | | [place] | | | LAB | | + [...]
--- OUTSIDE RECORDS SUMMARY | ~2020-01-14 | XMS | Encounter Summary ---
Demographics + + + | Address | [address] | | | [place] [address] | + + + | Home Phone | | + + + | Preferred Language | Unknown | + + + | Marital Status | Single | + + + | Druze Affiliation | Unknown | + + + | Race | Unknown | + + + | Ethnic Group | Unknown | + + + Author + + + | Author | [facility] | | | and [place] | + + + | Organization | [facility] | | [...] [place] | | | | | [address] | | + + + + + Care Team Providers + +------+ + | Care Client Service Professional Name | Role | Phone | + +------+ + | Erich Yates | PCP | | + +------+ + Encounter Details +--------+ + + + + | Date | Type | Department | Care Team | Description | +--------+ + + + + | 05/15/ | Abstract | [facility] | Divya, | | | 2017 | | GASTROENTEROLOGY | MD [address] | | | | | [address] [facility] | [place]. | | | | | [address] [place] | [place] [address] | | | | | [address] | | | | | | [phone] | | | +--------+ + + + [...]
--- OUTSIDE RECORDS SUMMARY | ~2020-01-14 | XMS | Encounter Summary ---
Demographics + + + | Address | [address] | | | [place] [address] | + + + | Home Phone [...] Samantha Ramos | ECON | [address] # | | | | | [place] | | | | | [address] | | + + + + + Care Team Providers + +------+ + | Care Reproduction Technician Name | Role | Phone | [...] | Only | [facility] [address] | MACHINES TECHNICIAN [address] | | | | | [address] | [address] | | | | | Mailcode: PV430 | [place] [address] | | | | | [facility] | [phone] | | | | | [place], [place] | | | | | | [address] | | | | | | [phone] | | | +--------+ + + + [...] | | | | | [address] [place], | | | | | | [place] [address] | | | | | | [phone] | | | | | | | [...]
--- OUTSIDE RECORDS SUMMARY | ~2020-01-14 | XMS | Encounter Summary ---
Demographics + + + | Address | [address] | | | [place] [address] | + + + | Home Phone | | + + + | Preferred Language | Unknown | + + + | Marital Status | Single | + + + | Islam Affiliation | NON | + + + [...] Samantha Ramos | ECON | [address] | | | | | [place] | | | | | [address] | | + + + + + Care Team Providers + +------+ + | Care Marine Propulsion Technician Name | Role | Phone | + +------+ + | Erich Yates PA-C | PCP | | + +------+ + Encounter Details +--------+ + + + + | Date | Type | Department | Care Team | Description | +--------+ + + + + | 11/28/ | Anesthesia | [facility] at [facility] | Beth Nash, | | | 2019 | Event | [facility] [address] | RN [address] | | | | | [facility] | [facility] | | | | | for Health and | [place], [place] | | | | | [facility], [address] | [address] | | | | | [place], [place] | | | | | | [address] | | | | | | [phone] | | | +--------+ + + + [...] | | | | | [place], | | | | | | [place] [address] | | | | | | [phone] | | | | | | | | +--------+---------+ + + + documented as of this encounter Visit Diagnoses Not on filedocumented in this encounter"
--- OUTSIDE RECORDS SUMMARY | ~2020-01-14 | XMS | Encounter Summary ---
Demographics + + + | Address | [address] | | | [place] [address] | + + + | Home Phone [...] [place] | | | | | [address] | | + + + + + Care Team Providers + +------+ + | Care Junior Loan Processor Name | Role | Phone | + +------+ + | Emmanuel Saavedra PCP | | + +------+ + Encounter Details +--------+--------+ + + + | Date | Type | Department | Care Team | Description | +--------+--------+ + + + | 01/05/ | Intake | [facility] | | N/A | | 2019 | | [place]SF[place] [address] | | | | | | [facility] | | | | | | [place], [place] | | | | | | [address] | | | | | | [phone] | | | +--------+--------+ + + + [...]
--- OUTSIDE RECORDS SUMMARY | ~2020-01-14 | XMS | Encounter Summary ---
Demographics + + + | Address | [address] | | | [place] [address] | + + + | Home Phone [...] Samantha Ramos | ECON | [address] # | | | | | [place] | | | | | [address] | | + + + + + Care Team Providers + +------+ + | Care Electrical Manufacturing Engineer Name | Role | Phone | [...] Operative Report | | 2006 | | [place] [address] [address] | | | | | Transcribed | [facility] | | | | | | for Health and | | | | | | Healing, [address] | | | | | | [place], [place] | | | | | | [address] | | | | | | [phone] | | | +--------+ + + + [...] | | | | | [place], | | | | | | [place] [address] | | | | | | [phone] | | | | | | | [...] | 10/13/2006 12:00 AM PST | | [id number] | | [id number] NAHOMY Durbin [id number] | | | | Date: 10/13/2006 | | | | Attending Surgeon: Neri Mcgarry M.D., Ph.D. | | | | Brick Cleaner(s): Stefano Clements M.D. | | | | [...] Mcgarry M.D., Ph.D. | | | | [facility] / | | [id number] / [id number] / [id number] / [id number] | | | | | | | | | | | | Electronically signed by Neri Mcgarry 10-24-2006 04:46:26 PM | | | | | + + documented in this encounter Visit Diagnoses Not on filedocumented in this encounter"
--- OUTSIDE RECORDS SUMMARY | ~2020-01-14 | XMS | Encounter Summary ---
Demographics + + + | Address | [address] | | | [place] [address] | + + + | Home Phone [...] Samantha Ramos | ECON | [address] | | | | | [place] | | | | | [address] | | + + + + + Care Team Providers + +------+ + | Care Manufacturing Production Manager Name | Role | Phone | + +------+ + | Neri Mojica MD | PCP | | + +------+ + Encounter Details +--------+ + + + + | Date | Type | Department | Care Team | Description | +--------+ + + + + | 07/16/ | Documentati | Orthopaedics at | Neri Mcgarry, | | | 2005 | on | [address] | [address] | | | | | [address] | [address] | | | | | Mailcode: [id number] | [facility] [place] | | | | | [facility] | [address] | | | | | [place], [place] | [phone] | | | | | [address] | | | | | | [phone] | | | +--------+ + + + [...] | | | | | [place] [address] [place], | | | | | | [place] [address] | | | | | | [phone] | | | | | | | | +--------+---------+ + + + documented as of this encounter Visit Diagnoses Not on filedocumented in this encounter"
--- OUTSIDE RECORDS SUMMARY | ~2020-01-14 | XMS | Encounter Summary ---
Demographics + + + | Address | [address] | | | [place] [address] | + + + | Home Phone [...] [id number] | | | | | [address] | | + + + + + Care Team Providers + +------+ + | Care B2B Appointment Setter Name | Role | Phone | [...] | Services | Diabetic | Willard | [place] | | | Required | | ulcer of | MD Bernadette | [address] | | | | | left foot | [address] | [place] | | | | | associated | [place] | [place], [place] | | | | | with type 1 | [place] | [address] | | | | | diabetes | [address] | Phone: | | | | | mellitus, | Phone: | [phone] | | | | | unspecified | [phone] | Fax: | | | | | part of | Fax: | [phone] | | | | | foot, | [phone] | | | | | | unspecified | | | | | | | ulcer stage | | | | | | | ([facility]) | | | [...] + + | 01/05/ | Hospital | [facility] | Erika Allison MD | Generalized weakness | | 2020 - | Encounter | [facility] | [address] | (Primary Dx); | | | | [address] [place] | [place] | Diabetic | | 01/09/ | | [place] [address] | [id number] | ketoacidosis without | | 2019 | | [phone] | | coma associated | | | | | Willard Aldrich | with type 1 diabetes | | | | | MD Bernadette [address] | mellitus (HCC); | | | | | [address] [place] | Acute renal failure | | | | | [place] [address] | superimposed on | | | | | [phone] | stage 3 chronic | | | | | | kidney disease, | | | | | | unspecified acute | | | | | | renal failure type | | | | | | ([facility]); Diabetic | | | | | | gastroparesis ([facility]); | | | | | | 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 | | | | | | with type 1 | | | | | | diabetes mellitus, | | | | | | unspecified part of | | | | | | foot, unspecified | | | | | | ulcer stage ([facility]) | +--------+ + + + + [...] might be differen t from the original. [place] HOSPITALIST DISCHARGE SUMMARY Pt. Name/Age/: Brooks [...] III, p/w Diarrhe a and AMS from [facility], found to have DKA and Acute [...] Medicine Why: hospital follow up Contact information: [address] [place] [address] Discharge to home with family Home health ordered on discharge for PT, wound care, and medication management Condition: Patient being discharged with condition improved Diet: consistent carb diet Greater than 30 minutes were spent on discharge and coordination of post-hospital care. Electronically signed by: Willard Aldrich MD, 01/10/2020 10:55 AM formerly [facility] Reference. This is NOT part of [...] this chart may have been created with [employer] ([employer]) voice recognition software. Occasi onal wrong-word or [...] sick with another illness Date Last Reviewed: 03/26/201619994846-2142 [employer]. [address] [place] [address], [place] [address]. All righ ts reserved. This information is [...] flavors available): 8 ounces per day ? [place] Fresh Yogurt (many flavors available): 6 ounces per day AttachmentsThe following attachments cannot be sent through Care Everywhere.Adult, Pneumoni a (Kazakh)documented in this encounter Medications at Time of [...] might be differen t from the original. [facility] HOSPITALIST PROGRESS NOTE Patient: Brooks Marquez : 1990: Age: 29 y.o. MedRec: [id number] PCP: Emmanuel Saavedra Admission date: 01/06/2020 Hospital [...] III, p/w Diarrhe a and AMS from [facility], found to have DKA and Acute [...] abx Willard Aldrich MD 01/09/2020 10:22 AM [facility] Subjective CC Continued nausea without vomiting, has [...] 84 TIBC 153* PCTSAT 55.0 FERRITIN 480* MIACSPSJ14 1,885* FOLATE 2.0* Inflammatory markers Recent Labs [...] ABG No results for input(s): PHART, PO2ART, QYE2XCV, EFV9OZR, BEART, J7EDOLOR in the last 168 h ours. Recent [...] Date/Time [facility] STAT instructions for COVID-19 tracking [[id number]] Collected: 01/07/201451 Order Status: Canceled Lab Status: No result Updated: 01/07/201451 Specimen: Tissue from Nasopharynx Coronavirus (COVID-19) NAAT [[id number]] (Normal) Collected: 01/07/20 144 Order Status: Completed Lab Status: Final result Updated: 01/07/201902 Specimen: Tissue from Nasopharynx SARS coronavirus 2 RNA Not Detected Comment: See Scanned Report [facility] STAT instructions for COVID-19 tracking [[id number]] Collected: 01/07/201446 Order Status: Completed Lab Status: Final result Updated: 01/07/201902 Specimen: Tissue from Nasopharynx [facility] COVID STAT instruction done Stool Pathogens, NAAT [[id number]] (Normal) Collected: 01/06/20428 Order Status: Completed Lab Status: Final result Updated: 01/06/20 0816 Specimen: Stool Campylobacter, NAAT Not Detected Salmonella, NAAT Not Detected Shigella NAAT Not Detected Vibrio, NAAT Not Detected Yersinia enterocolitica, NAAT Not Detected Shigatoxin 1 Not Detected Shigatoxin 2 Not Detected Clostridioides difficle NAAT reflex to Tox Ag [[id number]] Collected: 01/06/20428 Order Status: Completed Lab Status: Final result Updated: 01/06/20704 Specimen: Stool Narrative: The following orders were created for panel order Clostridioides difficle NAAT reflex to T ox Ag. Procedure Abnormality Status --------- ------ Clostridioides difficile...[[id number]] Final result Please view results for these tests on the individual orders. Clostridioides difficile NAAT Reflex [[id number]] Collected: 01/06/20428 Order Status: Completed Lab Status: Final result Updated: 01/06/20 07 Specimen: Stool C. difficile, Interp Negative Comment: No Toxigenic C. difficile detected. Consider other causes of Diarrhea. Repeat te sting should not be performed within 7 days. C. difficile, NAAT Negative Fecal leukocytes [[id number]] (Normal) Collected: 01/06/20427 Order Status: Completed Lab Status: Final result Updated: 01/06/20 0504 Specimen: Stool Lactoferrin, Qual Negative Culture, Urine [[id number]] (Normal) Collected: 01/06/20 0428 Order Status: Completed Lab Status: Final result Updated: 01/08/20 1209 Specimen: Urine, Unspecified Source Culture No Growth Culture, Blood [[id number]] Collected: 01/06/20 0339 Order Status: Completed Lab Status: Preliminary result Updated: 01/09/20 0441 Specimen: Peripheral Blood Culture No growth: Monitored continually by instrument for 5 days Culture, Blood [[id number]] Collected: 01/06/20 0329 Order Status: Completed Lab Status: Preliminary result Updated: 01/09/20 044 Specimen: Peripheral Blood Culture No growth: Monitored continually by instrument for 5 days Culture, MRSA [[id number]] (Normal) Collected: 01/06/20 0255 Order Status: Completed Lab Status: Final result Updated: 01/07/20 0742 Specimen: Body Fluid from Nares Culture Negative for MRSA by chromogenic agar method. Culture, MRSA [[id number]] Order Status: Canceled Lab Status: No result Specimen: Tissue from Nares Culture, MRSA [[id number]] Order Status: Canceled Lab Status: No result [...] this chart may have been created with [employer] ([employer]) voice recognition software. 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 Taking [facility] ProviderMD ondansetron (ZOFRAN ODT) 8 mg disintegrating [...] performed and electronically signed by Kay Cleary, Gr[employer] 9 12 Tutor 01/08/2020 1:40 PM Reviewed by Mariama Saavedra, PharmD 01/08/2020 3:02 PM erry, Willard luna MD - 01/08/2020 7:52 AM PDTFormatting of this note might be different from the origi nal. [place] HOSPITALIST PROGRESS NOTE Patient: Brooks Marquez : 1990: Age: 29 y.o. MedRec: [id number] PCP: Emmanuel Saavedra Admission date: 01/06/2020 Hospital [...] III, p/w Diarrhe a and AMS from [facility], found to have DKA and Acute [...] inpatient Willard Aldrich MD 01/08/2020 7:52 AM [facility] Subjective CC Some nausea, mid epigastric discomfort, [...] 3 mg 3 mg Oral Nightly PRN Eriak Allison MD metoprolol tartrate (LOPRESSOR) tablet 50 [...] 84 TIBC 153* PCTSAT 55.0 FERRITIN 480* [id number] 1,885* FOLATE 2.0* Inflammatory markers Recent Labs [...] ABG No results for input(s): PHART, PO2ART, NGN2VHO, EUL4TLI, BEART, Y0FLARXT in the last 168 h ours. Recent [...] Date/Time [facility] STAT instructions for COVID-19 tracking [[id number]] Collected: 01/07/20 145 Order Status: Canceled Lab Status: No result Updated: 01/07/20 145 Specimen: Tissue from Nasopharynx Coronavirus (COVID-19) NAAT [[id number]] (Normal) Collected: 01/07/20 1447 Order Status: Completed Lab Status: Final result Updated: 01/07/20 1903 Specimen: Tissue from Nasopharynx SARS coronavirus 2 RNA Not Detected Comment: See Scanned Report [facility] STAT instructions for COVID-19 tracking [[id number]] Collected: 01/07/20 1447 Order Status: Completed Lab Status: Final result Updated: 01/07/20 1903 Specimen: Tissue from Nasopharynx [facility] COVID STAT instruction done Stool Pathogens, NAAT [[id number]] (Normal) Collected: 01/06/20428 Order Status: Completed Lab Status: Final result Updated: 01/06/20 0816 Specimen: Stool Campylobacter, NAAT Not Detected Salmonella, NAAT Not Detected Shigella NAAT Not Detected Vibrio, NAAT Not Detected Yersinia enterocolitica, NAAT Not Detected Shigatoxin 1 Not Detected Shigatoxin 2 Not Detected Clostridioides difficle NAAT reflex to Tox Ag [[id number]] Collected: 01/06/20428 Order Status: Completed Lab Status: Final result Updated: 01/06/20 07 Specimen: Stool Narrative: The following orders were created for panel order Clostridioides difficle NAAT reflex to T ox Ag. Procedure Abnormality Status --------- ------ Clostridioides difficile...[[id number]] Final result Please view results for these tests on the individual orders. Clostridioides difficile NAAT Reflex [[id number]] Collected: 01/06/20428 Order Status: Completed Lab Status: Final result Updated: 01/06/20 07 Specimen: Stool C. difficile, Interp Negative Comment: No Toxigenic C. difficile detected. Consider other causes of Diarrhea. Repeat te sting should not be performed within 7 days. C. difficile, NAAT Negative Fecal leukocytes [[id number]] (Normal) Collected: 01/06/20427 Order Status: Completed Lab Status: Final result Updated: 01/06/20 0504 Specimen: Stool Lactoferrin, Qual Negative Culture, Urine [[id number]] (Normal) Collected: 01/06/20427 Order Status: Completed Lab Status: Preliminary result Updated: 01/07/20 0832 Specimen: Urine, Unspecified Source Culture No growth to date Culture, Blood [[id number]] Collected: 01/06/20 0339 Order Status: Completed Lab Status: Preliminary result Updated: 01/06/20 1641 Specimen: Peripheral Blood Culture No growth: Monitored continually by instrument for 5 days Culture, Blood [[id number]] Collected: 01/06/20 0329 Order Status: Completed Lab Status: Preliminary result Updated: 01/06/20 1641 Specimen: Peripheral Blood Culture No growth: Monitored continually by instrument for 5 days Culture, MRSA [[id number]] (Normal) Collected: 01/06/20 0255 Order Status: Completed Lab Status: Final result Updated: 01/07/20 0742 Specimen: Body Fluid from Nares Culture Negative for MRSA by chromogenic agar method. Culture, MRSA [[id number]] Order Status: Canceled Lab Status: No result Specimen: Tissue from Nares Culture, MRSA [[id number]] Order Status: Canceled Lab Status: No result [...] A p reliminary report was sent by [employer] with no significant discrepancy on 01/06/2020 4 [...] this chart may have been created with [employer] (Former[employer]) voice recognition software. Occasi onal wrong-word or [...] Neumann MD - 01/07/2020 8:12 AM PDT formerly [facility] Adult Hospitalist Progress Note Hospital Day: 1 Patient Summary: Briefly, 29-year-old male with an extensive past medical history most significant for type 1 diabetes mellitus complicated with gastroparesis right BKA and chronic left foot ulc er and CKD stage III who presented initially to [facility] with a chief complaint of di arrhea and confusion transferred to [facility] ICU for DKA and acute on chronic [...] [address] | [place] | [phone] | | [facility] | | [address] | | | - LABORATORY | | [...] [address] | [place] | [phone] | | [facility] | | [address] | | | - LABORATORY | | [...] + | [facility] | [address] | [place] | [phone] | | [facility] | | [address] | | | - LABORATORY | | [...] [address] | [place] | [phone] | | [facility] | | [address] | | | - LABORATORY | | [...] + | [facility] | [address] | [place] | [phone] | | [facility] | | [address] | | | - LABORATORY | | [...] | mL/min/1.73m2 | [facility] | | | COLOMBIAN | RATE,ESTIMATED | | MEDICAL | | | | mL/min/1.30j5Vwdw than | | CENTER - | | [...] [address] | [place] | [phone] | | [facility] | | [address] | | | - LABORATORY | | [...] [address] | [place] | [phone] | | [facility] | | [address] | | | - LABORATORY | | [...] [address] | [place] | [phone] | | [facility] | | [address] | | | - LABORATORY | | [...] [address] | [place] | [phone] | | [facility] | | [address] | | | - LABORATORY | | [...] [address] | [place] | [phone] | | [facility] | | [address] | | | - LABORATORY | | [...] | Basophils | | K/uL | [facility] | | | | [...] [address] | [place] | [phone] | | [facility] | | [address] | | | - LABORATORY | | [...] [address] | [place] | [phone] | | [facility] | | [address] | | | - LABORATORY | | [...] 2.91 (H) | 0.70 - 1.30 | [facility] | | | | | mg/dL | [facility] | | | | | | MEDICAL | | | | | | CENTER - | | | | | | LABORATORY | | + + + + + + | eGFR if not | 26 (L)Comment: | >=60 | [facility] | | | | GLOMERULAR FILTRATION | mL/min/1.73m2 | [facility] | | | COLOMBIAN | RATE,ESTIMATED | | MEDICAL | | | | mL/min/1.50t5Vret than | | CENTER - | | [...] + | [facility] | [address] | [place] | [phone] | | [facility] | | [address] | | | - LABORATORY | | [...] + | [facility] | [address] | [place] | [phone] | | [facility] | | [address] | | | - LABORATORY | | [...] | | | POC | | | [facility] | | | | | | [...] | + + + + + | [facility] | [address] | [place] | [phone] | | [facility] | | [address] | | | - LABORATORY | | [...] + | [facility] | [address] | [place] | [phone] | | [facility] | | [address] | | | - LABORATORY | | [...] [address] | [place] | [phone] | | [facility] | | [address] | | | - LABORATORY | | [...] mL/min/1.73m2 | [facility] | | | COLOMBIAN | RATE,ESTIMATED | | MEDICAL | | | | mL/min/1.82r5Cygt than | | CENTER - | | [...] [address] | [place] | [phone] | | [facility] | | [address] | | | - LABORATORY | | [...] [address] | [place] | [phone] | | [facility] | | [address] | | | - LABORATORY | | [...] [address] | [place] | [phone] | | [facility] | | [address] | | | - LABORATORY | | [...] [address] | [place] | [phone] | | [facility] | | [address] | | | - LABORATORY | | [...] + | [facility] | [address] | [place] | [phone] | | [facility] | | [address] | | | - LABORATORY | | [...] + | [facility] | [address] | [place] | [phone] | | [facility] | | [address] | | | - LABORATORY | | [...] ST. | [address] | [place] | [phone] | | [facility] | | [address] | | | - LABORATORY | | [...] [address] | [place] | [phone] | | [facility] | | [address] | | | - LABORATORY | | [...] + | [facility] | [address] | [place] | [phone] | | [facility] | | [address] | | | - LABORATORY | | [...] + | [facility] | [address] | [place] | [phone] | | [facility] | | [address] | | | - LABORATORY | | [...] [address] | [place] | [phone] | | [facility] | | [address] | | | - LABORATORY | | [...] [address] | [place] | [phone] | | [facility] | | [address] | | | - LABORATORY | | [...] [address] | [place] | [phone] | | [facility] | | [address] | | | - LABORATORY | | [...] + | [facility] | [address] | [place] | [phone] | | [facility] | | [address] | | | - LABORATORY | | [...] not | 19 (L)Comment: | >=60 | [facility] | | | | GLOMERULAR FILTRATION | mL/min/1.73m2 | [facility] | | | COLOMBIAN | RATE,ESTIMATED | | MEDICAL | | | | mL/min/1.89h9Acpe than | | CENTER - | | [...] | | | | | mg/dL | [facility] | | | | | | [...] [address] | [place] | [phone] | | [facility] | | [address] | | | - LABORATORY | | [...] [address] | [place] | [phone] | | [facility] | | [address] | | | - LABORATORY | | [...] [address] | [place] | [phone] | | [facility] | | [address] | | | - LABORATORY | | [...] [address] | [place] | [phone] | | [facility] | | [address] | | | - LABORATORY | | [...] + | [facility] | [address] | [place] | [phone] | | [facility] | | [address] | | | - LABORATORY | | [...] + | [facility] | [address] | [place] | [phone] | | [facility] | | [address] | | | - LABORATORY | | [...] | | | POC | | | [facility] | | | | | [...] | + + + + + | [facility] | [address] | [place] | [phone] | | [facility] | | [address] | | | - LABORATORY | | [...] + | [facility] | [address] | [place] | [phone] | | [facility] | | [address] | | | - LABORATORY | | [...] [address] | [place] | [phone] | | [facility] | | [address] | | | - LABORATORY | | [...] mL/min/1.73m2 | [facility] | | | COLOMBIAN | RATE,ESTIMATED | | MEDICAL | | | | mL/min/1.93j6Fwza than | | CENTER - | | [...] [address] | [place] | [phone] | | [facility] | | [address] | | | - LABORATORY | | [...] + | [facility] | [address] | [place] | [phone] | | [facility] | | [address] | | | - LABORATORY | | [...] [address] | [place] | [phone] | | [facility] | | [address] | | | - LABORATORY | | [...] [address] | [place] | [phone] | | [facility] | | [address] | | | - LABORATORY | | [...] [address] | [place] | [phone] | | [facility] | | [address] | | | - LABORATORY | | [...] [address] | [place] | [phone] | | [facility] | | [address] | | | - LABORATORY | | [...] [address] | [place] | [phone] | | [facility] | | [address] | | | - LABORATORY | | [...] [address] | [place] | [phone] | | [facility] | | [address] | | | - LABORATORY | | [...] not | 18 (L)Comment: | >=60 | [facility] | | | | GLOMERULAR FILTRATION | mL/min/1.73m2 | [facility] | | | COLOMBIAN | RATE,ESTIMATED | | MEDICAL | | | | mL/min/1.02h4Abxn than | | CENTER - | | [...] [address] | [place] | [phone] | | [facility] | | [address] | | | - LABORATORY | | [...] + | [facility] | [address] | [place] | [phone] | | [facility] | | [address] | | | - LABORATORY | | [...] + | [facility] | [address] | [place], [place] | [phone] | | [facility] | | [address] | | | - LABORATORY | | [...] [address] | [place] | [phone] | | [facility] | | [address] | | | - LABORATORY | | [...] + | [facility] | [address] | [place] | [phone] | | [facility] | | [address] | | | - LABORATORY | | [...] [address] | [place] | [phone] | | [facility] | | [address] | | | - LABORATORY | | [...] + | [facility] | [address] | [place] | [phone] | | [facility] | | [address] | | | - LABORATORY | | [...] 4.13 (H) | 0.70 - 1.30 | [facility] | | | | | mg/dL | [facility] | | | | | | MEDICAL | | | | | | CENTER - | | | | | | LABORATORY | | + + + + + + | eGFR if not | 17 (L)Comment: | >=60 | [facility] | | | | GLOMERULAR FILTRATION | mL/min/1.73m2 | [facility] | | | COLOM[place]AN | RATE,ESTIMATED | | MEDICAL | | | | mL/min/1.03u5Xdod than | | CENTER - | | [...] + | [facility] | [address] | [place] | [phone] | | [facility] | | [address] | | | - LABORATORY | | [...] + | [facility] | [address] | [place], [place] | [phone] | | [facility] | | [address] | | | - LABORATORY | | [...] | | | report was sent by [employer] with no significant discrepancy on | | [...] preliminary report was | | sent by [employer] with no significant discrepancyon 01/06/2020 4:25 PM.Dictated [...] | |A preliminary report was sent by [employer] with no significant discrepancy | |on 01/06/2020 [...] [address] | [place] | [phone] | | [facility] | | [address] | | | - LABORATORY | | [...] ST. | [address] | [place], [place] | [phone] | | [facility] | | [address] | | | - LABORATORY | | [...] + | [facility] | [address] | [place] | [phone] | | [facility] | | [address] | | | - LABORATORY | | [...] + | [facility] | [address] | [place] | [phone] | | [facility] | | [address] | | | - LABORATORY | | [...] + | [facility] | [address] | [place] | [phone] | | [facility] | | [address] | | | - LABORATORY | | [...] 4.08 (H) | 0.70 - 1.30 | [facility] | | | | | mg/dL | [facility] | | | | | | MEDICAL | | | | | | CENTER - | | | | | | LABORATORY | | + + + + + + | eGFR if not | 17 (L)Comment: | >=60 | [facility] | | | | GLOMERULAR FILTRATION | mL/min/1.73m2 | [facility] | | | COLOMBIAN | RATE,ESTIMATED | | MEDICAL | | | | mL/min/1.58k1Jmup than | | CENTER - | | [...] 7.1 (L) | 8.7 - 10.4 | [facility] | | | | | mg/dL | [facility] | | | | | | [...] [address] | [place] | [phone] | | [facility] | | [address] | | | - LABORATORY | | [...] + | [facility] | [address] | [place] | [phone] | | [facility] | | [address] | | | - LABORATORY | | [...] ST. | [address] | [place], [place] | [phone] | | [facility] | | [address] | | | - LABORATORY | | [...] [address] | [place] | [phone] | | [facility] | | [address] | | | - LABORATORY | | [...] | + + + + + | [facility] | [address] | [place] | [phone] | | [facility] | | [address] | | | - LABORATORY | | [...] ST. | [address] | [place], [place] | [phone] | | [facility] | | [address] | | | - LABORATORY | | [...] [address] | [place] | [phone] | | [facility] | | [address] | | | - LABORATORY | | [...] [address] | [place] | [phone] | | [facility] | | [address] | | | - LABORATORY | | [...] [address] | [place] | [phone] | | [facility] | | [address] | | | - LABORATORY | | [...] [address] | [place] | [phone] | | [facility] | | [address] | | | - LABORATORY | | [...] St | [place] | | | [facility] | | [address] | | | - BLOOD BANK | [...] + | [address] | [address] | [place] | [phone] | | [facility] | | [address] | | | - LABORATORY | | [...] ST. | [address] | [place], [place] | [phone] | | [facility] | | [address] | | | - LABORATORY | | [...] | | GLOMERULAR FILTRATION | mL/min/1.73m2 | [facility] | | | COLOMBIAN | RATE,ESTIMATED | | MEDICAL | | | | mL/min/1.76q6Llft than | | CENTER - | | [...] [address] | [place] | [phone] | | [facility] | | [address] | | | - LABORATORY | | [...] + | [facility] | [address] | [place] | [phone] | | [facility] | | [address] | | | - LABORATORY | | [...] [address] | [place] | [phone] | | [facility] | | [address] | | | - LABORATORY | | [...] + | [facility] | [address] | [place] | [phone] | | [facility] | | [address] | | | - LABORATORY | | [...] [address] | [place] | [phone] | | [facility] | | [address] | | | - LABORATORY | | [...] difficile, | Toxigenic C. difficile | | [facility] | | | Interp | detected. Consider [...] [address] | [place] | [phone] | | [facility] | | [address] | | | - LABORATORY | | [...] [address] | [place] | [phone] | | [facility] | | [address] | | | - LABORATORY | | [...] + | [facility] | [address] | [place] | [phone] | | [facility] | | [address] | | | - LABORATORY | | [...] + | [address] [facility] | [address] | [place] | [phone] | | [facility] | | [address] | | | - LABORATORY | | [...] [address] | [place] | [phone] | | [facility] | | [address] | | | - LABORATORY | | [...] + + | Performed at: [address] [facility] [address], | REFERENCE LAB | | [place], [place] [id number] Personal Development Coach: Jerome Agudelo MD, Phone: | [facility] | | [phone] | | + + + + + + + + | Performing | Address | City/State/Zipcode | Phone Number | | Organization | | | | + + + + + | REFERENCE LAB | [address] | [place] | [phone] | | [facility] | [place] | [address] | | + + + + + [...] + | [facility] | [address] | [place] | [phone] | | [facility] | | [address] | | | - LABORATORY | | [...] - 1.030 | [facility] | | | [place] | | | [facility] | | [...] ST. | [address] | [place] | [phone] | | [facility] | | [address] | | | - LABORATORY | | [...] [address] | [place] | [phone] | | [facility] | | [address] | | | - LABORATORY | | [...] + | [address] [facility] | [address] | [place] | [phone] | | [facility] | | [address] | | | - LABORATORY | | [...] | | | | CRISTINE HUDDLESTON MD ([id number]) | | | | | | on [...] ST. | [address] | [place], [place] | [phone] | | [facility] | | [address] | | | - LABORATORY | | [...] [address] | [place] | [phone] | | [facility] | | [address] | | | - LABORATORY | | [...] HIGINIO | | | | | | [facility] | | | | | [...] + | [facility] | [address] | [place] | [phone] | | [facility] | | [address] | | | - LABORATORY | | [...] [address] | [place] | [phone] | | [facility] | | [address] | | | - LABORATORY | | [...] + | [facility] | [address] | [place] | [phone] | | [facility] | | [address] | | | - LABORATORY | | [...] | | | | mmol/L | [facility] | | | | | [...] [address] | [place] | [phone] | | [facility] | | [address] | | | - LABORATORY | | [...] | | | | | | [employer] | | | | | [...] [address] | [place] | [phone] | | [facility] | | [address] | | | - LABORATORY | | [...] 4.16 (H) | 0.70 - 1.30 | [facility] | | | | | mg/dL | [facility] | | | | | | MEDICAL | | | | | | CENTER - | | | | | | LABORATORY | | + + + + + + | eGFR if not | 17 (L)Comment: | >=60 | [facility] | | | | GLOMERULAR FILTRATION | mL/min/1.73m2 | [facility] | | | COLOMBIAN | RATE,ESTIMATED | | MEDICAL | | | | mL/min/1.46h3Czch than | | CENTER - | | [...] [address] | [place] | [phone] | | [facility] | | [address] | | | - LABORATORY | | [...] + | [facility] | [address] | [place] | [phone] | | [facility] | | [address] | | | - LABORATORY | | [...] ST. | [address] | [place], [place] | [phone] | | [facility] | | [address] | | | - LABORATORY | | [...] + | [facility] | [address] | [place] | [phone] | | [facility] | | [address] | | | - LABORATORY | | [...] + | [address] [facility] | 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, not stated as uncontrolled | + + | Diabetic ulcer of left foot associated with type 1 diabetes mellitus, unspecified part | | of foot, unspecified ulcer stage ([facility]) | + + documented in this encounter [...] | | | | | NPO, Daytime 6504-9367 Use NIGHT | | | | | | | DOSE for doses scheduled: | | | | | | | HS, Nighttime 5081-1329 If the | | | | | [...] + + + + | Rule out CNadna Difficile | 01/06/2020 4:07 AM | 01/06/2020 7:05 AM | | | PDT | PDT | + + + + | Rule out COVID-19 | 01/06/2020 6:04 PM | 01/07/2020 7:03 PM | | | PDT | PDT | + + + + documented as of this encounter
--- OUTSIDE RECORDS SUMMARY | ~2020-01-14 | XMS | Encounter Summary ---
Demographics + + + | Address | [address] | | | [place] [address] | + + + | Home Phone [...] Samantha Ramos | ECON | [address] | | | | | [place] | | | | | [address] | | + + + + + Care Team Providers + +------+ + | Care Aluminum Molding Machine Operator Name | Role | Phone [...] [address] | | | | | [place], [place] | [place] | | | | | [address] | [address] | | | | | [phone] | [phone] | | | | | | | [...] | | | | | [address] [place], | | | | | | [place] [address] | | | | | | [phone] | | | | | | | [...] | + + + + + | [facility] | [address] | [place] [address] | | | PATHOLOGY | [address] | | | + + + + + | [facility] | [address] | [place] [address] | | | PATHOLOGY | [address] | | | + + + + + documented in this encounter Visit Diagnoses Not on filedocumented in this encounter"
--- OUTSIDE RECORDS SUMMARY | ~2020-01-14 | XMS | Encounter Summary ---
Demographics + + + | Address | [address] | | | [place] [address] | + + + | Home Phone | | + + + | Preferred Language | Unknown | + + + | Marital Status | Single | + + + | Taoist Affiliation | NON | + + + | Race | White | + + + | Ethnic Group | Not or | + + + Author + + + | Author | [facility] | + + + | Organization | [facility] | + + + | Address | Unknown | + + + | Phone | Unavailable | + + + Support + + + + + | Name | Relationship | Address | Phone | + + + + + | Samantha Ramos | ECON | [address] # | | | | | [place] | | | | | [address] | | + + + + + Care Team Providers + +------+ + | Care Customs Collector Name | Role | Phone | + [...] | | | | | Procedures | [place], [place] | floor | | | | | CONSULT TO | [address] | [place], [place] | | | | | GI PROCEDURE | Phone: | [phone] | | | | | UNIT: EGD | [phone] | Phone: | | | | | | Fax: | [phone] | | | | | | [phone] | Fax: | | | | | | | [phone] | + +--------+ + + + + [...] Authorized | | Surgery | Diagnoses | [place], | Gs Foregut | | | | | Diabetic | Lashawn Tan, | [address] | | | | | gastroparesi | [address] | [place] [address] | | | | | s (HCC) | [address] | Center for | | | | | Procedures | [facility] | [facility] and | | | | | CONSULT TO | Rd | Healing, | | | | | SURGERY - | [place], [place] | [facility] | | | | | GENERAL | [address] | [place], [place] | | | | | CONSULT TO | Phone: | [phone] | | | | | SURGERY - | [phone] | Phone: | | | | | GENERAL | Fax: | [phone] | | | | | | [phone] | Fax: | | | | | | | [phone] | + +--------+ + + + + Encounter Details +--------+---------+ + + + | Date | Type | Department | Care Team | Description | +--------+---------+ + + + | 07/27/ | Office | Digestive Health | Alison Holley, | History of diabetic | | 2018 | Visit | Center at [facility] [address] | MD [address] | gastroparesis | | | | [address] | Ave [place], [place] | (Primary Dx) | | | | for Health and | [address] | | | | | [facility], [facility] | [phone] | | | | | [place], [place] | | | | | | [address] | | | | | | [phone] | | | +--------+---------+ + + + [...] might be different fr om the original. [facility] Department of Surgery Red Surgery [...] was mildly elevated but no evidence of UT. V/Q was neg f or PE. Functional [...] Vitals reviewed. Labs/Cultures/Pathology: HBA1c 9.8% Imaging/Diagnostic Studies: HI GASTRIC EMPTYING STUDY 07/25/19: - No report - Severe gastroparesis seen HI GASTRIC EMPTYING STUDY Order: [id number] Status: Final result Visible to patient: No (Not Released) Details Reading Physician Reading Date Result Priority Emmanuel Mohamud MD 08/27/2015 Routine Component 3yr ago HI GASTRIC EMPTYING EXAM: Gastric emptying study on [...] t he above plan. Silke Flores MD [facility] [place] [facility] Pager #[phone] STAFF: A resident assisted with documenting this service. I saw the patient and reviewed and verif ied all information documented by the resident, and made modifications to such information, when appropriate. documented in this encou nter Plan of Treatment +--------+---------+ + + + | Date | Type | Specialty | Care Team | Description | +--------+---------+ + + + | 01/24/ | Office | Surgery | Neri Steven MD | | | 2020 | Visit | | [address] | | | | | | [place], | | | | | | [place] [address] | | | | | | [phone] | | | | | | | | +--------+---------+ + + + documented as of this encounter Visit Diagnoses + + | Diagnosis | + + | History of diabetic gastroparesis - Primary Personal history of other endocrine, | | metabolic, and immunity disorders | + + documented in this encounter
--- OUTSIDE RECORDS SUMMARY | ~2020-01-14 | XMS | Encounter Summary ---
Demographics + + + | Address | [address] | | | [place] [address] | + + + | Home Phone | | + + + | Preferred Language | Unknown | + + + | Marital Status | Single | + + + | Holiness Affiliation | Unknown | + + + | Race | Unknown | + + + | Ethnic Group | Unknown | + + + Author + + + | Author | [facility] | | | and [place] | + + + | Organization | [facility] | | [...] [place] | | | | | [address] | | + + + + + Care Team Providers + +------+ + | Care Home Aide Name | Role | Phone | [...] | 03/13/ | Telephone | [facility] [place] | [facility], | Referral | | 2019 | | GASTROENTEROLOGY | [address]NA [address] | | | | | [address] [place] | [place], [address] [address] | | | | | [address] [place], [place] | [place], [place] | | | | | [address] | [address] | | | | | [phone] | | | +--------+ + + + [...]
--- OUTSIDE RECORDS SUMMARY | ~2020-01-14 | XMS | Encounter Summary ---
Demographics + + + | Address | [address] | | | [place] [address] | + + + | Home Phone | | + + + | Preferred Language | Unknown | + + + | Marital Status | Single | + + + | Synagogue Affiliation | Unknown | + + + [...] [place] | | | | | [address] | | + + + + + Care Team Providers + +------+ + | Care Ux Specialist Name | Role | Phone | + +------+ + | Erich Yates | PCP | | + +------+ + Encounter Details +--------+ + + + + | Date | Type | Department | Care Team | Description | +--------+ + + + + | 02/28/ | Documentati | [facility] [place] | [facility], | | | 2019 | on | GASTROENTEROLOGY | DANA [address] | | | | | [address] [place] | [place], [address] [address] | | | | | [address] [place], [place] | [place], [place] | | | | | [address] | [address] | | | | | [phone] | | | +--------+ + + + [...] 02/28/2019 8:47 AM PDTReceived notice from [facility] whe re patient was referred. [...]
--- OUTSIDE RECORDS SUMMARY | ~2020-01-14 | XMS | Encounter Summary ---
Demographics + + + | Address | [address] | | | [place] [address] | + + + | Home Phone | | + + + | Preferred Language | Unknown | + + + | Marital Status | Single | + + + | Christian Affiliation | Unknown | + + + | Race | Unknown | + + + | Ethnic Group | Unknown | + + + Author + + + | Author | [facility] | | | and [place] | + + + | Organization | [facility] | | | and [...] [place] | | | | | [address] | | + + + + + Care Team Providers + +------+ + | Care Watch Inspector Final Movement Name | Role | Phone | + [...] | Services | ogy | Diabetic | [facility], | Greg Bernardo MD | | | Required | | gastroparesi | [place], | [address] | | | | | s (HCC) | MANAGER MEAT [address] [place] | | | | | Malnutrition | [place], [place] | [address] | | | | | , | [address] [place] | [place], [place] | | | | | unspecified | [place] | [address] | | | | | type (HCC) | [address] | Phone: | | | | | Weight loss | Phone: | [phone] | | | | | | [phone] | Fax: | | | | | | Fax: | [phone] | | | | | | [phone] | | +--------+ + + + + [...] | [address] [place] | [place], [place] [address] | (HCC) (Primary Dx); | | | | [address] [place], [place] | [place], [place] | Diabetic | | | | [address] | [address] | gastroparesis (HCC); | | | | [phone] | | Weight loss | +--------+ + [...] type | | | | | | ([facility]) Weight loss | | + + +--------+ [...]
--- OUTSIDE RECORDS SUMMARY | ~2020-01-14 | XMS | Encounter Summary ---
Demographics + + + | Address | [address] | | | [place] [address] | + + + | Home Phone [...] [place] | | | | | [address] | | + + + + + Care Team Providers + +------+ + | Care Lead Housekeeper Name | Role | Phone | + +------+ + | Erich Yates | PCP | | + +------+ + Encounter Details +--------+ + + + + | Date | Type | Department | Care Team | Description | +--------+ + + + + | 02/01/ | Abstract | [facility] | Divya, | | | 2018 | | GASTROENTEROLOGY | [address] | | | | | [address] [facility] | [place]. | | | | | [address] [place], [place] | [place] [address] | | | | | [address] | | | | | | [phone] | | | +--------+ + + + [...] - 1.03 | EXTERNAL | | | [place], | | | LAB | | | [...]
--- OUTSIDE RECORDS SUMMARY | ~2020-01-14 | XMS | Encounter Summary ---
Demographics + + + | Address | [address] | | | [place] [address] | + + + | Home Phone | | + + + | Preferred Language | Unknown | + + + | Marital Status | Single | + + + | Tenriism Affiliation | Unknown | + + + | Race | Unknown | + + + | Ethnic Group | Unknown | + + + Author + + + | Author | [facility] | | | and [place] | + + + | Organization | [facility] | | | [...] [place] | | | | | [address] | | + + + + + Care Team Providers + +------+ + | Care Bereavement Counselor Name | Role | Phone | [...] | | complication | [place], | [place] [address] | | | | | s ([facility]) | [place] [address] | Phone: | | | | | Unspecified | Phone: | [phone] | | | | | abdominal | [phone] | Fax: | | | | | pain | Fax: | [phone] | | | | | Functional | [phone] | | | | | | intestinal [...] | [address] [place] | [place], [place] [address] | (Primary Dx); Weight | | | | 210 [place], [place] | [place], [place] | loss; Malnutrition, | | | | [address] | [address] | unspecified type | | | | [phone] | | ([facility]); Type [...] STENT PLACEMENT; Surgeon: Tc Mora MD; Location: [facility] Family History Problem Relation [...] 0 0 - 4 Final UA Specific [place], External 01/21/2019 1.016 1.005 - 1.03 Final [...] 3 (moderate) (HCC) Plan: Urgent referral to [facility] gastro enterology. Patient significantly malnourished due to [...]
--- OUTSIDE RECORDS SUMMARY | ~2020-01-14 | XMS | Encounter Summary ---
Demographics + + + | Address | [address] | | | [place] [address] | + + + | Home Phone [...] Samantha Ramos | ECON | [address] # | | | | | [place] | | | | | [address] | | + + + + + Care Team Providers + +------+ + | Care Vault Clerk Name | Role | Phone | [...] [address] | | | | | [place], [place] | [place], [place] | | | | | [address] | [address] | | | | | [phone] | [phone] | | | | | | | [...] | | | | | [address] [place], | | | | | | [place] [address] | | | | | | [phone] | | | | | | | [...] | | | | | | [facility] | | | | | | Laboratories. | | | | + + + + + + + + | Specimen | + + | | + + + + + + + | Performing | Address | City/State/Zipcode | Phone Number | | Organization | | | | + + + + + | [facility] | [address] | [place] [address] | | | LABORATORY | | | [...] | | | performed by René | uIU/ml | | | | | [facility] | | | | | | Laboratories. | | | | + + + + + + + + | Specimen | + + | | + + + + + + + | Performing | Address | City/State/Zipcode | Phone Number | | Organization | | | | + + + + + | [facility] | [address] | [place] [address] | | | LABORATORY | | | | + + + + + documented in this encounter Visit Diagnoses Not on filedocumented in this encounter"
--- OUTSIDE RECORDS SUMMARY | ~2020-01-14 | XMS | Encounter Summary ---
Demographics + + + | Address | [address] | | | [place] [address] | + + + | Home Phone [...] Samantha Ramos | ECON | [address] # | | | | | [place] | | | | | [address] | | + + + + + Care Team Providers + +------+ + | Care Cutter Hot Knife Name | Role | Phone | + [...] | 2019 | on | Center at [facility] [address] | PA-C [address] | (multiple lab | | | | [facility] | [facility] | results) | | | | for Health and | [place], [place] | | | | | [facility] 2 | [address] | | | | | [place], [place] | [phone] | | | | | [address] | | | | | | [phone] | | | +--------+ + + + [...] | | | | | [place], | | | | | | [place] [address] | | | | | | [phone] | | | | | | | [...] [address] | [place] | [phone] | | [place] | | | | [...] [address] | [place], [place] | [phone] | | [place] | | | | [...] - | [address] | [place] | [phone] | | [place] | | | | [...] [address] | [place] | [phone] | | [place] | | | | + + + + + documented in this encounter Visit Diagnoses + + | Diagnosis | + + | Chronic diarrhea Diarrhea | + + documented in this encounter"
--- OUTSIDE RECORDS SUMMARY | ~2020-01-14 | XMS | Encounter Summary ---
Demographics + + + | Address | [address] | | | [place] [address] | + + + | Home Phone [...] [place] | | | | | [address] | | + + + + + Care Team Providers + +------+ + | Care Truck Driving Name | Role | Phone | + [...] | | | | | [address] | [place] | | | | | [place] | [address] | | | | | [address] | | | | | | [phone] | | | +--------+ + + + [...] +----+---+ + + | | 2 | [place] | | | | 0 | 43-deg[address] | | | | 4 | | | | | 8 | | | +----+---+ + + | | 2 | First | | | | [address] | [address] | | | | 5 | | | | | 4 | | | +----+---+ + + | | 2 | [place] off | | | | 1 | [...] - 09/19/2018 8:55 PM PST Anesthesia Airway [id number]/25/2018 | | 20:40Preprocedure check: patient identified, suction, [...]
--- OUTSIDE RECORDS SUMMARY | ~2020-01-14 | XMS | Encounter Summary ---
Demographics + + + | Address | [address] | | | [place] [address] | + + + | Home Phone [...] Samantha Ramos | ECON | [address] # | | | | | [place], [place] | | | | | [address] | | + + + + + Care Team Providers + +------+ + | Care Educational Director Name | Role | Phone | [...] [address] | | | | | | [place], [place] | | | | | | [address] | | | | | | [phone] | | | | | | | [...] | | | | | Zena [address] [place], | | | | | | [place] [address] | | | | | | [phone] | | | | | | | [...] | + + + + + | [facility] DEPARTMENT | [address] | [place] [address] | | | PATHOLOGY | [address] | | | + + + + + | [facility] | [address] | [place] [address] | | | PATHOLOGY | [address] [...] | [facility] DEPARTMENT OF | [address] | [place] [address] | | | PATHOLOGY | [address] | | | + + + + + | [facility] DEPARTMENT | [address] | [place] [address] | | | PATHOLOGY | [address] [...] | + + + + + | [facility] | [address] | [place] [address] | | | PATHOLOGY | [address] | | | + + + + + | [facility] | [address] [place] [address] | [place] [address] | | | PATHOLOGY | [address] [...] | + + + + + | [facility] DEPARTMENT OF | [address] | [place] [address] | | | PATHOLOGY | [address] | | | + + + + + | [facility] DEPARTMENT OF | [address] | [place] [address] | | | PATHOLOGY | [address] [...] | + + + + + | [facility] | [address] | [place] [address] | | | PATHOLOGY | [address] | | | + + + + + | [facility] | [address] | [place] [address] | | | PATHOLOGY | [address] [...] Performed At | + + + | [id number] CALCIUM Checked and phoned. | [facility] | | | DEPARTMENT OF | | | PATHOLOGY | + + + + + + + + | Performing | Address | City/State/Zipcode | Phone Number | | Organization | | | | + + + + + | [facility] DEPARTMENT OF | [address] | [place] [address] | | | PATHOLOGY | [address] | | | + + + + + | [facility] | [address] | [place] [address] | | | PATHOLOGY | [address] | | | + + + + + CHEMISTRY MASTER PANEL (12/03/2002 6:00 AM PST) + + | Specimen | + + | | + + + + + | Narrative | Performed At | + + + | [id number] CALCIUM Checked and phoned. | [facility] | | | DEPARTMENT OF | | | PATHOLOGY | + + + + + + + + | Performing | Address | City/State/Zipcode | Phone Number | | Organization | | | | + + + + + | [facility] DEPARTMENT OF | [address] | [place] [address] | | | PATHOLOGY | [address] | | | + + + + + | [facility] DEPARTMENT OF | [address] | [place] [address] | | | PATHOLOGY | [address] [...] | + + + + + | [facility] | [address] | [place] [address] | | | PATHOLOGY | [address] | | | + + + + + | [facility] | [facility] [facility] [address] | [place] [address] | | | PATHOLOGY | [address] | | | + + + + + MAGNESIUM, PLASMA (12/03/2002 2:20 AM PST) + +-------+ + + + | Component | Value | Ref Range | Performed | Pathologist | | | | | At | Signature | + +-------+ + + + | MAGNESIUM,P | 1.9 | 1.8 - 2.5 mg/dL | [facility] | | | LASMA | | | [...] | + + + + + | [facility] DEPARTMENT OF | [address] | [place] [address] | | | PATHOLOGY | [address] | | | + + + + + | [facility] DEPARTMENT OF | [address] | [place] [address] | | | PATHOLOGY | [address] | | | + + + + + PHOSPHORUS, PLASMA (12/03/2002 2:20 AM PST) + +---------+ + + + | Component | Value | Ref Range | Performed | Pathologist | | | | | At | Signature | + +---------+ + + + | PHOSPHORUS, | 2.1 (L) | 2.5 - 5.0 mg/dL | [facility] | | | PLASMA | | | [...] | + + + + + | [facility] DEPARTMENT OF | [address] | [place] [address] | | | PATHOLOGY | [address] | | | + + + + + | [facility] DEPARTMENT OF | [address] | [place] [address] | | | PATHOLOGY | [address] [...] | + + + + + | [facility] DEPARTMENT OF | [address] | [place] [address] | | | PATHOLOGY | [address] | | | + + + + + | [facility] DEPARTMENT OF | [address] | [place] [address] | | | PATHOLOGY | [address] [...] | | | | Test performed by [facility] | | | | | | [facility] | | | | | | [facility]. | | | | + + + + + + + + | Specimen | + + | | + + + + + + + | Performing | Address | City/State/Zipcode | Phone Number | | Organization | | | | + + + + + | [facility] | [address] | [place] [address] | | | LABORATORY | | | [...] + + + + + | [facility] | [address] | [place] [address] | | | PATHOLOGY | [address] | | | + + + + + | [facility] DEPARTMENT OF | [address] | [place] [address] | | | PATHOLOGY | [address] [...] Performed At | + + + | [id number] Checked and phoned. CO2 [id number] Checked and phoned. | [facility] | | | DEPARTMENT OF | | | PATHOLOGY | + + + + + + + + | Performing | Address | City/State/Zipcode | Phone Number | | Organization | | | | + + + + + | [facility] DEPARTMENT | [facility] [address] | [place] [address] | | | PATHOLOGY | [address] | | | + + + + + | [facility] | [address] [place] [address] | [place] [address] | | | PATHOLOGY | [address] | | | + + + + + MAGNESIUM, PLASMA (12/02/2002 6:45 PM PST) + +-------+ + + + | Component | Value | Ref Range | Performed | Pathologist | | | | | At | Signature | + +-------+ + + + | MAGNESIUM,P | 1.8 | 1.8 - 2.5 mg/dL | [facility] | | | LASMA | | | DEPARTMENT | | | | | | OF | | | | | | PATHOLOGY | | + +-------+ + + + + + | Specimen | + + | | + + + + + | Narrative | Performed At | + + + | [id number] Checked and phoned. CO2 [id number] Checked and phoned. | [facility] | | | DEPARTMENT OF | | | PATHOLOGY | + + + + + + + + | Performing | Address | City/State/Zipcode | Phone Number | | Organization | | | | + + + + + | [facility] | [address] | [place] [address] | | | PATHOLOGY | [address] | | | + + + + + | [facility] | [facility] [address] | [place] [address] | | | PATHOLOGY | [address] | | | + + + + + PHOSPHORUS, PLASMA (12/02/2002 6:45 PM PST) + +-------+ + + + | Component | Value | Ref Range | Performed | Pathologist | | | | | At | Signature | + +-------+ + + + | PHOSPHORUS, | 3.0 | 2.5 - 5.0 mg/dL | [facility] | | | PLASMA | | | DEPARTMENT | | | (LAB) | | | OF | | | | | | PATHOLOGY | | + +-------+ + + + + + | Specimen | + + | | + + + + + | Narrative | Performed At | + + + | [id number] Checked and phoned. CO2 [id number] Checked and phoned. | [facility] | | | DEPARTMENT OF | | | PATHOLOGY | + + + + + + + + | Performing | Address | City/State/Zipcode | Phone Number | | Organization | | | | + + + + + | [facility] DEPARTMENT | [facility] [address] [address] | [place] [address] | | | PATHOLOGY | [address] | | | + + + + + | [facility] DEPARTMENT OF | [facility] [address] | [place] [address] | | | PATHOLOGY | [address] | | | + + + + + CHEMISTRY MASTER PANEL (12/02/2002 6:45 PM PST) + + | Specimen | + + | | + + + + + | Narrative | Performed At | + + + | [id number] Checked and phoned. CO2 [id number] Checked and phoned. | [facility] | | | DEPARTMENT OF | | | PATHOLOGY | + + + + + + + + | Performing | Address | City/State/Zipcode | Phone Number | | Organization | | | | + + + + + | [facility] | [address] | [place] [address] | | | PATHOLOGY | [address] | | | + + + + + | [facility] DEPARTMENT OF | [address] | [place] [address] | | | PATHOLOGY | [address] | | | + + + + + documented in this encounter Visit Diagnoses Not on filedocumented in this encounter"
--- OUTSIDE RECORDS SUMMARY | ~2020-01-14 | XMS | Encounter Summary ---
Demographics + + + | Address | [address] | | | [place] [address] | + + + | Home Phone [...] + + + | Author | [facility] | + + + | Organization | [facility] | + + + | Address | Unknown | + + + | Phone | Unavailable | + + + Support + + + + + | Name | Relationship | Address | Phone | + + + + + | Samantha Ramos | ECON | [address] # | | | | | [place] | | | | | [address] | | + + + + + Care Team Providers + +------+ + | Care Incident Response Consultant Name | Role | Phone | [...] [address] | | | | | [place], [place] | [place], [place] | | | | | [address] | [address] | | | | | [phone] | [phone] | | | | | | | [...] | | | | | [address] [place], | | | | | | [place] [address] | | | | | | [phone] | | | | | | | [...] | | N, | Test performed by René | | | | | URINE[facility]CARLOS | [facility] | | | | | M | [...] | + + + + + | [facility] | [address] | [place] [address] | | | LABORATORY | | | | + + + + + documented in this encounter Visit Diagnoses Not on filedocumented in this encounter"
--- OUTSIDE RECORDS SUMMARY | ~2020-01-14 | XMS | Encounter Summary ---
Demographics + + + | Address | [address] | | | [place] [address] | + + + | Home Phone [...] Samantha Ramos | ECON | [address] # | | | | | [place], [place] | | | | | [address] | | + + + + + Care Team Providers + +------+ + | Care Subsurface Augmentee Operator Name | Role | Phone | [...] | | | | | [place], | | | | | | [place] [address] | | | | | | [phone] | | | | | | | | +--------+---------+ + + + documented as of this encounter Visit Diagnoses Not on filedocumented in this encounter"
--- OUTSIDE RECORDS SUMMARY | ~2020-01-14 | XMS | Encounter Summary ---
Demographics + + + | Address | [address] | | | [place] [address] | + + + | Home Phone [...] Samantha Ramos | ECON | [address] # | | | | | [place] | | | | | [address] | | + + + + + Care Team Providers + +------+ + | Care Loading Unit Operator Name | Role | Phone | [...] | Activity | [address] | [address] | | | | | Perez Mailcode: RPB07 | [address] | | | | | [place], [place] | [place], [place] | | | | | [address] | [address] | | | | | [phone] | [phone] | | | | | | | [...] | | | | | [address] [place], | | | | | | [place] [address] | | | | | | [phone] | | | | | | | [...] | + + + + + | [facility] | [address] | [place] [address] | | | PATHOLOGY | [address] | | | + + + + + | [facility] | [address] | [place] [address] | | | PATHOLOGY | [address] | | | + + + + + documented in this encounter Visit Diagnoses Not on filedocumented in this encounter"
--- OUTSIDE RECORDS SUMMARY | ~2020-01-14 | XMS | Encounter Summary ---
Demographics + + + | Address | [address] | | | [place] [address] | + + + | Home Phone [...] Samantha Ramos | ECON | [address] # | | | | | [place], [place] | | | | | [address] | | + + + + + Care Team Providers + +------+ + | Care Outside Installer Apprentice Name | Role | Phone | [...] as of this encounter Progress Notes Interface, Embedded Systems Software Developer In - 04/25/2005 12:43 AM PDT [id number] 09/30/2004 09/30/2003 [id number] NAHOMY Durbin [facility] [address] [place], [place] [id number] or September 30, 2004 Neri Mojica M.D. [address] [address] RE: BROOKS MARQUEZ II MR #: [id number] Dear Dr. Mojica: Diagnoses: 1. Type 1 diabetes. 2. Currently poor control. 3. Poor compliance. I reviewed Brooks Ogden in our Pediatric Endocrinology Clinic for the first time today. Alin is a 13-year 73-asxjv-xgb boy who was diagnosed with type 1 diabetes in April 2002, presenting with weight loss, polyuria, and polydipsia. Since Brooks was diagnosed, he has been mainly under your care for his diabetes, although he has been seen once at [facility]. His control has generally been very poor, and he has had 3 episodes of diabetic ketoacidosis, the last being in July 2004. At this episode, he was admitted to [facility] with moderate DKA, initial bicarbonate of [...] his new step-father and brother in the [facility]. Though there is strong family history on [...] Normal sensation. Summary: Alin is a 13-year 01-nkpwx-zdo boy with very poor diabetes control, secondary [...] or concerns. Yours sincerely, Ashanti Roque M.D. Rubber Block Layer of Pediatric Endocrinology / [id number] / [id number] / [id number] / documented i n this encounter Plan of Treatment +--------+---------+ + + + | Date | Type | Specialty | Care Team | Description | +--------+---------+ + + + | 01/24/ | Office | Surgery | Neri Steven MD | | | 2019 | Visit | | [address] | | | | | | [place], | | | | | | [place] [address] | | | | | | [phone] | | | | | | | | +--------+---------+ + + + documented as of this encounter Visit Diagnoses Not on filedocumented in this encounter"
--- OUTSIDE RECORDS SUMMARY | ~2020-01-14 | XMS | Encounter Summary ---
Demographics + + + | Address | [address] | | | [place] [address] | + + + | Home Phone [...] [place] | | | | | [address] | | + + + + + Care Team Providers + +------+ + | Care Tempering Kiln Tender Name | Role | Phone | + +------+ + | Emmanuel Saavedra PCP | | + +------+ + Encounter Details +--------+--------+ + + + | Date | Type | Department | Care Team | Description | +--------+--------+ + + + | 01/05/ | Intake | JASS [facility] | | N/A | | 2019 | | TRANSF[address] [place] [address] | | | | | | [facility]nn [facility] | | | | | | [place], [place] | | | | | | [address] | | | | | | [phone] | | | +--------+--------+ + + + [...]
--- OUTSIDE RECORDS SUMMARY | ~2020-01-14 | XMS | Encounter Summary ---
Demographics + + + | Address | [address] | | | [place] [address] | + + + | Home Phone [...] Samantha Ramos | ECON | [address] # | | | | | [place] | | | | | [address] | | + + + + + Care Team Providers + +------+ + | Care Colorer Name | Role | Phone | + [...] 2005 | Only | [address] | [phone] | | | | | Rd Mailcode: RPB[address] | | | | | | [place], [place] | | | | | | [address] | | | | | | [phone] | | | +--------+ + + + [...] | | | | | [address] [place], | | | | | | [place] [address] | | | | | | [phone] | | | | | | | [...]
--- OUTSIDE RECORDS SUMMARY | ~2020-01-14 | XMS | Encounter Summary ---
Demographics + + + | Address | [address] | | | [place] [address] | + + + | Home Phone [...] Samantha Ramos | ECON | [address] # | | | | | [place] | | | | | [address] | | + + + + + Care Team Providers + +------+ + | Care Test Kitchen Home Economist Name | Role | Phone | + [...] | | | | unspecified | [address] | [address] | | | | | type | [address] | [address] | | | | | Procedures | [facility] | [place], [place] | | | | | CONSULT TO | Rd | [address] | | | | | HEMATOLOGY / | [place], [place] | Phone: | | | | | ONCOLOGY | [address] | [phone] | | | | | [place] NEW | Phone: | Fax: | | | | | PATIENT | [phone] | [phone] | | | | | LEVEL V [place] | Fax: | | | | | | EST PATIENT | [phone] | | | | | | LEVEL [...] | Diabetic | Lashawn Tan, | Chh[address] | | | | | gastroparesi | PA-C [address] | | | | | s (HCC) | [facility] | [place] for | | | | | Abdominal | [facility] | Health and | | | | | pain, | Rd | Healing, | | | | | chronic, | [place], [place] | [address] | | | | | epigastric | [address] | [place], [place] | | | | | Chronic | Phone: | [address] | | | | | diarrhea | [phone] | Phone: | | | | | Severe | Fax: | [phone] | | | | | protein-judy | [phone] | Fax: | | | | | danyel | | [phone] | | | | | malnutrition | [...] [facility] [address] | PA-C [address] | (Local provider, | | | | [address] [facility] | [facility] [address] | local labs) | | | | for Health and | [place], [place] | | | | | [facility] [address] | [address] | | | | | [place], [place] | [phone] | | | | | [address] | | | | | | [phone] | | | +--------+ + + + [...] | | | | | [address] [place], | | | | | | [place] [address] | | | | | | [phone] | | | | | | | [...]
--- OUTSIDE RECORDS SUMMARY | ~2020-01-14 | XMS | Encounter Summary ---
Demographics + + + | Address | [address] | | | [place] [address] | + + + | Home Phone [...] Samantha Ramos | ECON | [address] # | | | | | [place] | | | | | [address] | | + + + + + Care Team Providers + +------+ + | Care Mixing Technician Name | Role | Phone | [...] | 2019 | on | Center at [facility] [address] | PA-C [address] | (multiple lab | | | | [facility] | [facility] | results) | | | | for Health and | [place], [place] | | | | | [facility] [address] | [address] | | | | | [place], [place] | [phone] | | | | | [address] | | | | | | [phone] | | | +--------+ + + + [...] | | | | | [place] [address] [place], | | | | | | [place] [address] | | | | | | [phone] | | | | | | | [...] [address] | [place] | [phone] | | [place] | | | | [...] [address] | [place], [place] | [phone] | | [place] | | | | [...] [address] | [place] | [phone] | | [place] | | | | [...] [address] | [place] | [phone] | | [place] | | | | + + + + + documented in this encounter Visit Diagnoses + + | Diagnosis | + + | Chronic diarrhea Diarrhea | + + documented in this encounter"
--- OUTSIDE RECORDS SUMMARY | ~2020-01-14 | XMS | Encounter Summary ---
Demographics + + + | Address | [address] | | | [place] [address] | + + + | Home Phone [...] Samantha Ramos | ECON | [address] # | | | | | [place] | | | | | [address] | | + + + + + Care Team Providers + +------+ + | Care Plush Dresser Name | Role | Phone | + +------+ + | Erich Yates PA-C | PCP | | + +------+ + Encounter Details +--------+ + + + + | Date | Type | Department | Care Team | Description | +--------+ + + + + | 07/06/ | Transcribe | [facility] | Transcribe | | | 2019 | Orders | [address] | Encounter, Provider, | | | | | [address] [place] | [address] | | | | | for Health and | [place] [address] | | | | | Healing, [address] | | | | | | [place], [place] | | | | | | [address] | | | | | | [phone] | | | +--------+ + + + [...] | | | | | [place] [address] [place], | | | | | | [place] [address] | | | | | | [phone] | | | | | | | [...]
--- OUTSIDE RECORDS SUMMARY | ~2020-01-14 | XMS | Encounter Summary ---
Demographics + + + | Address | [address] | | | [place] [address] | + + + | Home Phone | | + + + | Preferred Language | Unknown | + + + | Marital Status | Single | + + + | Baptist Affiliation | Unknown | + + + | Race | Unknown | + + + | Ethnic Group | Unknown | + + + Author + + + | Author | [facility] | | | and [place] | + + + | Organization | [facility] | | | [...] [place] | | | | | [address] | | + + + + + Care Team Providers + +------+ + | Care Dimension Specification Inspector Name | Role | Phone | [...] + + | 09/29/ | Office | [facility] | Tc Mora | Nephrolithiasis | | 2019 | Visit | [address] | MD [address] | (Primary Dx); | | | | OMER Ricardo | [place] | Hyperkalemia; Stage | | | | [address] | [address] | 3 chronic kidney | | | | [phone] | | disease (HCC) | +--------+---------+ + [...] STENT PLACEMENT; Surgeon: Tc [place] MD; Location: [facility] [place] Family History: Family History [...] pH, Urine 6.0 5.0 - 8.0 Specific [place] 1.012 1.001 - 1.030 Protein, Urine 100 [...] ECGs available Confirmed by KARO FLORES, CRISTINE ([id number]) on 09/21/2018 6:31:13 AM Lab Results Component [...] have not thoroughly proofread this note, and screen printing machine operator helper errors are very likely to occur. CC: [...]
--- OUTSIDE RECORDS SUMMARY | ~2020-01-14 | XMS | Encounter Summary ---
Demographics + + + | Address | [address] | | | [place] [address] | + + + | Home Phone | | + + + | Preferred Language | Unknown | + + + | Marital Status | Single | + + + | Voodoo Affiliation | Unknown | + + + | Race | Unknown | + + + | Ethnic Group | Unknown | + + + Author + + + | Author | [facility] | | | and [place] | + + + | Organization | [facility] | | [...] [place] | | | | | [address] | | + + + + + Care Team Providers + +------+ + | Care Core Stacker Name | Role | Phone | + [...] | | complication | [place], | [place] [address] | | | | | s ([facility]) | [place] [address] | Phone: | | | | | Unspecified | Phone: | [phone] | | | | | abdominal | [phone] | Fax: | | | | | pain | Fax: | [phone] | | | | | Functional | [phone] | | | | | | intestinal [...] | [address] [place] | [place], [place] [address] | (Primary Dx); Weight | | | | [address] [place], [place] | [place], [place] | loss; Malnutrition, | | | | [address] | [address] | unspecified type | | | | [phone] | | ([facility]); 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 | | | | | | ([facility]); Anemia of | | | [...] STENT PLACEMENT; Surgeon: Tc [place] MD; Location: [facility] [place] Family History Problem Relation [...] 0 0 - 4 Final UA Specific [place], External 01/21/2019 1.016 1.005 - 1.03 Final [...] 3 (moderate) (HCC) Plan: Urgent referral to [facility] gastro enterology. Patient significantly malnourished due to [...]
--- OUTSIDE RECORDS SUMMARY | ~2020-01-14 | XMS | Encounter Summary ---
Demographics + + + | Address | [address] | | | [place] [address] | + + + | Home Phone [...] [place] | | | | | [address] | | + + + + + Care Team Providers + +------+ + | Care Driver Medic Name | Role | Phone | + [...] + + | 06/22/ | Telephone | [facility] | Winston Whitman MD | Other (Appointment | | 2019 | | NEPHROLOGY [place] | [address] [place] | reminder call) | | | | [address] [place] | [facility] [place] | | | | | [address] [place], [place] | [id number] | | | | | [address] | | | | | | [phone] | | | +--------+ + + + [...]
--- OUTSIDE RECORDS SUMMARY | ~2020-01-14 | XMS | Encounter Summary ---
Demographics + + + | Address | [address] | | | [place] [address] | + + + | Home Phone [...] Samantha Ramos | ECON | [address] # | | | | | [place] | | | | | [address] | | + + + + + Care Team Providers + +------+ + | Care Motivational Speaker Name | Role | Phone | + +------+ + | Erich Yates PA-C | PCP | | + +------+ + Encounter Details +--------+ + + + + | Date | Type | Department | Care Team | Description | +--------+ + + + + | 10/11/ | Transcribe | [facility] | Transcribe | | | 2020 | Orders | [address] | Encounter, Provider, | | | | | Elliott Nguyen [place] | [address] | | | | | for Health and | [place] [address] | | | | | Healing, Building 2 | | | | | | [place], [place] | | | | | | [address] | | | | | | [phone] | | | +--------+ + + + [...] | | | | | Lily [place], | | | | | | [place] [address] | | | | | | [phone] | | | | | | | | +--------+---------+ + + + +------+ +--------+ + + | Name | [...] | | | | (HCC) | | +------+ +--------+ + + documented as of this encounter Visit Diagnoses + + | Diagnosis | + + | Diabetic gastroparesis associated with type 1 diabetes mellitus (HCC) - Primary | + + documented in this encounter"
--- OUTSIDE RECORDS SUMMARY | ~2020-01-14 | XMS | Encounter Summary ---
Demographics + + + | Address | [address] | | | [place] [address] | + + + | Home Phone [...] Samantha Ramos | ECON | [address] # | | | | | [place] | | | | | [address] | | + + + + + Care Team Providers + +------+ + | Care Thread Separator Name | Role | Phone | + +------+ + PCP | Unavailable | + +------+ + Encounter Details +--------+ + + + + | Date | Type | Department | Care Team | Description | +--------+ + + + + | 09/30/ | Office | [facility] | Clinic, Pediatric | Progress Note | | 2005 | Visit-Trans | PASTE UP ARTIST APPRENTICE | Endocrinology | | | | cribed [...] as of this encounter Progress Notes Interface, Dentofacial Orthopedics Dentist In - 04/25/2005 12:43 AM PDT [id number] NAHOMY RAYMOND BR[facility]KS [facility] Date: 09/30/2004 [...] eats. DENISSE Carr, CNSD, LD AT / [id number] / [id number] / [id number] / documented i n this encounter Plan of Treatment +--------+---------+ + + + | Date | Type | Specialty | Care Team | Description | +--------+---------+ + + + | 01/24/ | Office | Surgery | Neri Steven MD | | | 2019 | Visit | | [address] | | | | | | [place], | | | | | | [place] [address] | | | | | | [phone] | | | | | | | | +--------+---------+ + + + documented as of this encounter Visit Diagnoses Not on filedocumented in this encounter"
--- OUTSIDE RECORDS SUMMARY | ~2020-01-14 | XMS | Encounter Summary ---
Demographics + + + | Address | [address] | | | [place] [address] | + + + | Home Phone [...] Samantha Ramos | ECON | [address] # | | | | | [place] | | | | | [address] | | + + + + + Care Team Providers + +------+ + | Care Tip Scourer Name | Role | Phone | + [...] [address], 3rd floor | | ([facility]) | | | | [place], [place] | | | | | | [address] | | | | | | [phone] | | | +--------+------+ + + + [...] | | | | | [place], | | | | | | [place] [address] | | | | | | [phone] | | | | | | | [...] | | | LABORATORY | | | [facility] | | | SERVICES, | | | [...] | + + + + + | [facility] | [address] | [place] [address] | | | Z[address] | [address] | | | + + + + + documented in this encounter Visit Diagnoses + + | Diagnosis | + + | Type 1 diabetes, uncontrolled, with renal manifestation (HCC) Type I (juvenile type) | | diabetes mellitus with renal manifestations, uncontrolled | + + documented in this encounter"
--- OUTSIDE RECORDS SUMMARY | ~2020-01-14 | XMS | Encounter Summary ---
Demographics + + + | Address | [address] | | | [place] [address] | + + + | Home Phone [...] Samantha Ramos | ECON | [address] # | | | | | [place] | | | | | [address] | | + + + + + Care Team Providers + +------+ + | Care Pta Name | Role | Phone | + [...] | | | | Mailcode: [id number] | [place], [place] | | | | | [facility] | [address] | | | | | [place], [place] | [phone] | | | | | [address] | | | | | | [phone] | | | +--------+ + + + [...] | | | | | Lily Todd [place], | | | | | | [place] [address] | | | | | | [phone] | | | | | | | [...]
--- OUTSIDE RECORDS SUMMARY | ~2020-01-14 | XMS | Encounter Summary ---
Demographics + + + | Address | [address] | | | [place] [address] | + + + | Home Phone [...] [place] | | | | | [address] | | + + + + + Care Team Providers + +------+ + | Care Application Development Intern Name | Role | Phone | [...] | | | | Mailcode: [id number] | [place], [place] | | | | | [facility] | [address] | | | | | [place], [place] | [phone] | | | | | [address] | | | | | | [phone] | | | +--------+ + + + [...] | | | | | Lily Todd [place], | | | | | | [place] [address] | | | | | | [phone] | | | | | | | [...]
--- OUTSIDE RECORDS SUMMARY | ~2020-01-14 | XMS | Encounter Summary ---
Demographics + + + | Address | [address] | | | [place] [address] | + + + | Home Phone [...] + + + | Author | [facility] | | | and [place] | + + + | Organization | [facility] | | [...] [place] | | | | | [address] | | + + + + + Care Team Providers + +------+ + | Care Title Officer Name | Role | Phone | [...] | Services | ogy | Diabetic | [facility], | Greg Bernardo MD | | | Required | | gastroparesi | [place], | [address] | | | | | s (HCC) | NUCLEAR PLANT EQUIPMENT OPERATOR [address] [place] | | | | | Malnutrition | [place], [place] | [address] | | | | | , | [address] [place] | [place], [place] | | | | | unspecified | [place] | [address] | | | | | type (HCC) | [address] | Phone: | | | | | Weight loss | Phone: | [phone] | | | | | | [phone] | Fax: | | | | | | Fax: | [phone] | | | | | | [phone] | | +--------+ + + + + [...] | [address] | [place], [place] [address] | (HCC) (Primary Dx); | | | | [address] [place], [place] | [place], [place] | Diabetic | | | | [address] | [address] | gastroparesis (HCC); | | | | [phone] | | Weight loss | +--------+ + [...] | ([facility]) Weight loss | | + + +--------+ [...]
--- OUTSIDE RECORDS SUMMARY | ~2020-01-14 | XMS | Encounter Summary ---
Demographics + + + | Address | [address] | | | [place] [address] | + + + | Home Phone [...] Samantha Ramos | ECON | [address] # | | | | | [place] | | | | | [address] | | + + + + + Care Team Providers + +------+ + | Care Ring Cutter Lathe Operator Name | Role | Phone | [...] | | | | | gastroparesi | [address] [facility] | | | | | | s associated | [address]preet [address]autista | | | | | | with type 1 | Rd | | | | | | diabetes | [place], [place] | | | | | | mellitus | [address] | | | | | | ([facility]) | Phone: | | | | | | Procedures | [phone] | | | | | | NM GASTRIC | Fax: | | | | | | EMPTYING | [phone] | | | | | | STUDY [...] | | | | | diabetes | [place], [place] | floor | | | | | mellitus | [address] | [place], [place] | | | | | ([facility]) | Phone: | [address] | | | | | Procedures | [phone] | Phone: | | | | | CONSULT TO | Fax: | [phone] | | | | | GI PROCEDURE | [phone] | Fax: | | | | | UNIT: EGD | | [phone] | + +--------+ + + + + Encounter Details +--------+ + + + + | Date | Type | Department | Care Team | Description | +--------+ + + + + | 07/04/ | Container Finisher | Digestive Health | Neri Steven MD | Diabetic | | 2019 | | Center at [facility] [address] | [address] | gastroparesis | | | | [facility] | [place], | associated with type | | | | for Health and | [place] [address] | 1 diabetes mellitus | | | | Healing, Building 2 | [phone] | ([facility]) (Primary Dx) | | | | [place], [place] | | | | | | [address] | | | | | | [phone] | | | +--------+ + + + [...] | | | | | Lily Todd [place], | | | | | | [place] [address] | | | | | | [phone] | | | | | | | [...]
--- OUTSIDE RECORDS SUMMARY | ~2020-01-14 | XMS | Encounter Summary ---
Demographics + + + | Address | [address] | | | [place] [address] | + + + | Home Phone [...] Samantha Ramos | ECON | [address] # | | | | | [place] | | | | | [address] | | + + + + + Care Team Providers + +------+ + | Care Migrant Leader Name | Role | Phone | [...] of | Neri Ch MD | Neri hC MD | | | | | uncertain | [address] | [address] | | | | | behavior of | Gurpreet | [address] | | | | | bone and | [place] | Rd [place], | | | | | articular | [place], [place] | [place] | | | | | cartilage | [address] | [address] | | | | | Loose body | Phone: | Phone: | | | | | in upper arm | [phone] | [phone] | | | | | joint | Fax: | Fax: | | | | | Procedures | [phone] | [phone] | | | | | CONSULT TO | | | | | | | [place] | | | | | | | EXPLORE | | | | | | | ELBOW JOINT | | | | | | | [place] BONE | | | | | | [...] | | | | Mailcode: [id number] | [place], [place] | Uncertain Behavior | | | | [facility] | [address] | of Bone and | | | | [place], [place] | [phone] | Articular Cartilage | | | | [address] | | | | | | [phone] | | | +--------+---------+ + + + [...] Codeine Social history: The patient lives in [place], [place]. The patient smokes half a pack [...] | | | | | [place], | | | | | | [place] [address] | | | | | | [phone] | | | | | | | [...]
--- OUTSIDE RECORDS SUMMARY | ~2020-01-14 | XMS | Encounter Summary ---
Demographics + + + | Address | [address] | | | [place] [address] | + + + | Home Phone [...] + + + | Author | [facility] | | | and [place] | + + + | Organization | [facility] | | | [...] [place] | | | | | [address] | | + + + + + Care Team Providers + +------+ + | Care Grid Caster Name | Role | Phone | + [...] | [address] | [place], [place] [address] | (Primary Dx); Weight | | | | [address] [place], [place] | [place], [place] | loss; Malnutrition, | | | | [address] | [address] | unspecified type | | | | [phone] | | ([facility]); 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
--- OUTSIDE RECORDS SUMMARY | ~2020-01-14 | XMS | Encounter Summary ---
Demographics + + + | Address | [address] | | | [place] [address] | + + + | Home Phone [...] Samantha Ramos | ECON | [address] # | | | | | [place], [place] | | | | | [address] | | + + + + + Care Team Providers + +------+ + | Care Side Gluer Name | Role | Phone | + [...] Rd | | | | | | [place], [place] | | | | | | [address] | | | | | | [phone] | | | | | | | [...] | | | | | Zena [place], | | | | | | [place] [address] | | | | | | [phone] | | | | | | | [...] + + + + + | [facility] DEPARTMENT | [address] | [place] [address] | | | PATHOLOGY | [address] | | | + + + + + | [facility] | [address] | [place] [address] | | | PATHOLOGY | [address] [...] DEPARTMENT OF | [address] | [place] [address] | | | PATHOLOGY | [address] | | | + + + + + | [facility] DEPARTMENT | [address] | [place] [address] | | | PATHOLOGY | [address] [...] | + + + + + | [facility] | [address] | [place] [address] | | | PATHOLOGY | [address] | | | + + + + + | [facility] | [address] [place] [address] | [place] [address] | | | PATHOLOGY | [address] [...] + + + + + | [facility] DEPARTMENT OF | [address] | [place] [address] | | | PATHOLOGY | [address] | | | + + + + + | [facility] DEPARTMENT OF | [address] | [place] [address] | | | PATHOLOGY | [address] [...] | + + + + + | [facility] | [address] | [place] [address] | | | PATHOLOGY | [address] | | | + + + + + | [facility] | [address] | [place] [address] | | | PATHOLOGY | [address] [...] Performed At | + + + | [id number] CALCIUM Checked and phoned. | [facility] | | | DEPARTMENT OF | | | PATHOLOGY | + + + + + + + + | Performing | Address | City/State/Zipcode | Phone Number | | Organization | | | | + + + + + | [facility] DEPARTMENT OF | [address] | [place] [address] | | | PATHOLOGY | [address] | | | + + + + + | [facility] OF | [address] | [place] [address] | | | PATHOLOGY | [address] | | | + + + + + CHEMISTRY MASTER PANEL (12/03/2002 6:00 AM PST) + + | Specimen | + + | | + + + + + | Narrative | Performed At | + + + | [id number] CALCIUM Checked and phoned. | [facility] | | | DEPARTMENT OF | | | PATHOLOGY | + + + + + + + + | Performing | Address | City/State/Zipcode | Phone Number | | Organization | | | | + + + + + | [facility] DEPARTMENT OF | [address] | [place] [address] | | | PATHOLOGY | [address] | | | + + + + + | [facility] DEPARTMENT OF | [address] | [place] [address] | | | PATHOLOGY | [address] [...] | + + + + + | [facility] | [address] | [place] [address] | | | PATHOLOGY | [address] | | | + + + + + | [facility] | [address] | [place] [address] | | | PATHOLOGY | [address] [...] + + + + + | [facility] DEPARTMENT OF | [address] | [place] [address] | | | PATHOLOGY | [address] | | | + + + + + | [facility] DEPARTMENT OF | [address] | [place] [address] | | | PATHOLOGY | [address] | | | + + + + + PHOSPHORUS, PLASMA (12/03/2002 2:20 AM PST) + +---------+ + + + | Component | Value | Ref Range | Performed | Pathologist | | | | | At | Signature | + +---------+ + + + | PHOSPHORUS, | 2.1 (L) | 2.5 - 5.0 mg/dL | [facility] | | | PLASMA | | | [...] + + + + + | [facility] DEPARTMENT OF | [address] | [place] [address] | | | PATHOLOGY | [address] | | | + + + + + | [facility] DEPARTMENT OF | [address] | [place] [address] | | | PATHOLOGY | [address] [...] + + + + + | [facility] DEPARTMENT OF | [address] | [place] [address] | | | PATHOLOGY | [address] | | | + + + + + | [facility] DEPARTMENT OF | [address] | [place] [address] | | | PATHOLOGY | [address] [...] | | | | Test performed by [facility] | | | | | | [facility] | | | | | | [facility]. | | | | + + + + + + + + | Specimen | + + | | + + + + + + + | Performing | Address | City/State/Zipcode | Phone Number | | Organization | | | | + + + + + | [facility] | [address] | [place] [address] | | | LABORATORY | | | [...] | + + + + + | [facility] | [address] | [place] [address] | | | PATHOLOGY | [address] | | | + + + + + | [facility] DEPARTMENT OF | [address] | [place] [address] | | | PATHOLOGY | [address] [...] Performed At | + + + | [id number] Checked and phoned. CO2 [id number] Checked and phoned. | [facility] | | | DEPARTMENT OF | | | PATHOLOGY | + + + + + + + + | Performing | Address | City/State/Zipcode | Phone Number | | Organization | | | | + + + + + | [facility] DEPARTMENT | [address] | [place] [address] | | | PATHOLOGY | [address] | | | + + + + + | [facility] | [address] [place] [address] | [place] [address] | | | PATHOLOGY | [address] [...] Performed At | + + + | [id number] Checked and phoned. CO2 [id number] Checked and phoned. | [facility] | | | DEPARTMENT OF | | | PATHOLOGY | + + + + + + + + | Performing | Address | City/State/Zipcode | Phone Number | | Organization | | | | + + + + + | [facility] | [address] | [place] [address] | | | PATHOLOGY | [address] | | | + + + + + | [facility] | [address] | [place] [address] | | | PATHOLOGY | [address] [...] Performed At | + + + | [id number] Checked and phoned. CO2 [id number] Checked and phoned. | [facility] | | | DEPARTMENT OF | | | PATHOLOGY | + + + + + + + + | Performing | Address | City/State/Zipcode | Phone Number | | Organization | | | | + + + + + | [facility] DEPARTMENT | [address] | [place] [address] | | | PATHOLOGY | [address] | | | + + + + + | [facility] DEPARTMENT OF | [address] | [place] [address] | | | PATHOLOGY | [address] | | | + + + + + CHEMISTRY MASTER PANEL (12/02/2002 6:45 PM PST) + + | Specimen | + + | | + + + + + | Narrative | Performed At | + + + | [id number] Checked and phoned. CO2 [id number] Checked and phoned. | [facility] | | | DEPARTMENT OF | | | PATHOLOGY | + + + + + + + + | Performing | Address | City/State/Zipcode | Phone Number | | Organization | | | | + + + + + | [facility] | [address] | [place] [address] | | | PATHOLOGY | [address] | | | + + + + + | [facility] DEPARTMENT OF | [address] | [place] [address] | | | PATHOLOGY | [address] | | | + + + + + documented in this encounter Visit Diagnoses Not on filedocumented in this encounter"
--- OUTSIDE RECORDS SUMMARY | ~2020-01-14 | XMS | Encounter Summary ---
Demographics + + + | Address | [address] | | | [place] [address] | + + + | Home Phone [...] Samantha Ramos | ECON | [address] # | | | | | [place] | | | | | [address] | | + + + + + Care Team Providers + +------+ + | Care Census Enumerator Name | Role | Phone | + [...] | Only | [facility] [address] | SOFTWARE TEST TECHNICIAN [address] | | | | | [address] | [address] | | | | | Mailcode: [id number] | [place] [address] | | | | | [facility] | [phone] | | | | | [place], [place] | | | | | | [address] | | | | | | [phone] | | | +--------+ + + + [...] | | | | | [place], | | | | | | [place] [address] | | | | | | [phone] | | | | | | | [...]
--- OUTSIDE RECORDS SUMMARY | ~2020-01-14 | XMS | Encounter Summary ---
Demographics + + + | Address | [address] | | | [place] [address] | + + + | Home Phone | | + + + | Preferred Language | Unknown | + + + | Marital Status | Single | + + + | Anglican Affiliation | Unknown | + + + [...] [place] | | | | | [address] | | + + + + + Care Team Providers + +------+ + | Care Slate Handler Name | Role | Phone | + [...] + + | 06/22/ | Telephone | [facility] | Winston Whitman MD | Other (Appointment | | 2019 | | NEPHROLOGY [place] | [address] [place] | reminder call) | | | | [address] [place] | [address] [facility], [place] | | | | | [address] [place], [place] | [id number] | | | | | [address] | | | | | | [phone] | | | +--------+ + + + [...]
--- OUTSIDE RECORDS SUMMARY | ~2020-01-14 | XMS | Encounter Summary ---
Demographics + + + | Address | [address] | | | [place] [address] | + + + | Home Phone [...] + + + | Author | [facility] | | | and [place] | + + + | Organization | [facility] | | | [...] [place] | | | | | [address] | | + + + + + Care Team Providers + +------+ + | Care Backshoe Person Name | Role | Phone | + [...] | | [address] [place] | [place] [address] | | | | | [place] [address] | | | | | | [phone] | | | +--------+ + + + [...]
--- OUTSIDE RECORDS SUMMARY | ~2020-01-14 | XMS | Encounter Summary ---
Demographics + + + | Address | [address] | | | [place] [address] | + + + | Home Phone [...] Samantha Ramos | ECON | [address] # | | | | | [place] | | | | | [address] | | + + + + + Care Team Providers + +------+ + | Care Membership Counselor Name | Role | Phone | [...] 2005 | Only | [address] | [phone] | | | | | Rd Mailcode: [id number] | | | | | | [place], [place] | | | | | | [address] | | | | | | [phone] | | | +--------+ + + + [...] | | | | | [place] [address] [place], | | | | | | [place] [address] | | | | | | [phone] | | | | | | | [...]
--- OUTSIDE RECORDS SUMMARY | ~2020-01-14 | XMS | Encounter Summary ---
Demographics + + + | Address | [address] | | | [place] [address] | + + + | Home Phone [...] Samantha Ramos | ECON | [address] # | | | | | [place] | | | | | [address] | | + + + + + Care Team Providers + +------+ + | Care Carpenter And Joiner Name | Role | Phone | + [...] [address] | | | | | [place], [place] | [place], [place] | | | | | [address] | [address] | | | | | [phone] | [phone] | | | | | | | [...] | | | | | [address] [place], | | | | | | [place] [address] | | | | | | [phone] | | | | | | | [...] | [facility] | | | | | [facility] | | | | | | Laboratories. | | | | + + + + + + + + | Specimen | + + | | + + + + + + + | Performing | Address | City/State/Zipcode | Phone Number | | Organization | | | | + + + + + | [facility] | [address] | [place] [address] | | | LABORATORY | | | [...] | | | SERUM | performed by [place] | | | | | | [facility] | | | | | | Laboratories. | | | | + + + + + + + + | Specimen | + + | | + + + + + + + | Performing | Address | City/State/Zipcode | Phone Number | | Organization | | | | + + + + + | [facility] | [address] | [place] [address] | | | LABORATORY | | | | + + + + + documented in this encounter Visit Diagnoses Not on filedocumented in this encounter"
--- OUTSIDE RECORDS SUMMARY | ~2020-01-14 | XMS | Encounter Summary ---
Demographics + + + | Address | [address] | | | [place] [address] | + + + | Home Phone [...] Samantha Ramos | ECON | [address] # | | | | | [place] | | | | | [address] | | + + + + + Care Team Providers + +------+ + | Care Job Hand Name | Role | Phone | + +------+ + | Erich Yates PA-C | PCP | | + +------+ + Encounter Details +--------+ + + + + | Date | Type | Department | Care Team | Description | +--------+ + + + + | 10/11/ | Transcribe | [facility] | Transcribe | | | 2020 | Orders | [facility] [address] | Encounter, Provider, | | | | | Elliott Nguyen [place] | [address] | | | | | for Health and | [place] [address] | | | | | Healing, [address] | | | | | | [place], [place] | | | | | | [address] | | | | | | [phone] | | | +--------+ + + + [...] | | | | | [address] [place], | | | | | | [place] [address] | | | | | | [phone] | | | | | | | [...]
--- OUTSIDE RECORDS SUMMARY | ~2020-01-14 | XMS | Encounter Summary ---
Demographics + + + | Address | [address] | | | [place] [address] | + + + | Home Phone [...] Samantha Ramos | ECON | [address] | | | | | [place] | | | | | [address] | | + + + + + Care Team Providers + +------+ + | Care Acoustical Logging Engineer Name | Role | Phone | [...] 07/24/ | Telephone | [facility] | Lsahawn Joy, | Evaluation of test | | 2019 | | Center at [facility] [address] | PA-C [address] [facility] | results | | | | [facility] | [facility] | | | | | [facility] and | [place], [place] | | | | | [facility] 2 | [address] | | | | | [place], [place] | [phone] | | | | | [address] | | | | | | [phone] | | | +--------+ + + + [...] | | | | | [address] [place], | | | | | | [place] [address] | | | | | | [phone] | | | | | | | | +--------+---------+ + + + documented as of this encounter Visit Diagnoses Not on filedocumented in this encounter"
--- OUTSIDE RECORDS SUMMARY | ~2020-01-14 | XMS | Encounter Summary ---
Demographics + + + | Address | [address] | | | [place] [address] | + + + | Home Phone [...] [place] | | | | | [address] | | + + + + + Care Team Providers + +------+ + | Care Route Manager Name | Role | Phone | + +------+ + | Erich Yates | PCP | | + +------+ + Encounter Details +--------+ + + + + | Date | Type | Department | Care Team | Description | +--------+ + + + + | 04/18/ | Orders Only | [facility] | Provider, | Chronic kidney | | 2019 | | SYSTEM GENERIC OP | MD [address] | disease, stage III | | | | CONVERSION [address] | 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 | | with diabetic | | | | | | nephropathy ([facility]); | | | | | | Chronic kidney | | | | | | disease, stage III | | | | | | (moderate) ([facility]) | +--------+ + + + + [...] | | Indicated | | | (moderate) ([facility]) | 01/15/2021 | | | | | Proteinuria Type 1 | | | | | | diabetes mellitus | | | | | | with diabetic | | | | | | nephropathy ([facility]) | | | | | | Chronic kidney | | | | | | disease, stage III | | | | | | (moderate) ([facility]) | | + +------+--------+ + + | Protein/Creatinine | Lab | Routin | Chronic kidney | Expected: | | Ratio, Urine | | e | disease, stage III | 03/07/2019, Expires: | | | | | (moderate) ([facility]) | 01/15/2021 | | | | | Proteinuria Type 1 | | | | | | diabetes mellitus | | | | | | with diabetic | | | | | | nephropathy ([facility]) | | | | | | Chronic kidney | | | | | | disease, stage III | | | | | | (moderate) ([facility]) | | + +------+--------+ + + [...]
--- OUTSIDE RECORDS SUMMARY | ~2020-01-14 | XMS | Encounter Summary ---
Demographics + + + | Address | [address] | | | [place] [address] | + + + | Home Phone [...] [place] | | | | | [address] | | + + + + + Care Team Providers + +------+ + | Care Branch Services Manager Name | Role | Phone | + +------+ + | Erich Yates | PCP | | + +------+ + Encounter Details +--------+ + + + + | Date | Type | Department | Care Team | Description | +--------+ + + + + | 05/15/ | Abstract | [facility] | Divya, | | | 2017 | | GASTROENTEROLOGY | [address] | | | | | [address] [facility] | [place]rose Wendy. | | | | | [address] [place] | [place] [address] | | | | | [address] | | | | | | [phone] | | | +--------+ + + + [...]
--- OUTSIDE RECORDS SUMMARY | ~2020-01-14 | XMS | Encounter Summary ---
Demographics + + + | Address | [address] | | | [place] [address] | + + + | Home Phone [...] Samantha Ramos | ECON | [address] | | | | | [place], [place] | | | | | [address] | | + + + + + Care Team Providers + +------+ + | Care Floor Installer Name | Role | Phone | + [...] | | | | | [address] [place], | | | | | | [place] [address] | | | | | | [phone] | | | | | | | | +--------+---------+ + + + documented as of this encounter Visit Diagnoses Not on filedocumented in this encounter"
--- OUTSIDE RECORDS SUMMARY | ~2020-01-14 | XMS | Encounter Summary ---
Demographics + + + | Address | [address] | | | [place] [address] | + + + | Home Phone [...] Samantha Ramos | ECON | [address] # | | | | | [place] | | | | | [address] | | + + + + + Care Team Providers + +------+ + | Care Forge Tender Name | Role | Phone | [...] | | | | | [facility] | [facility] [address] | | | | | | CLINIC | [place] | | | | | | [place] | [place] | | | | | | BUILDING | [place], [place] | | | | | | [address] | [address] | | | | | | [address] | Phone: | | | | | | [place], | [phone] | | | | | | [place] [address] | Fax: | | | | | | Phone: | [phone] | | | | | | [phone] | | | | | | | Fax: | | | | | | | [phone] | | +--------+--------+ + + + + [...] | | | | [facility] | [place], [place] | | | | | [address] | [address] | | | | | [place] | [phone] | | | | | [place], [place] | | | | | | [address] | | | | | | [phone] | | | +--------+ + + + [...] as of this encounter Progress Notes Interface, Utility Hand In - 12/15/2006 6:28 AM JOHNNY [id number] NAHOMY [place] [id number] Clinic Date: 11/02/2006 Clinic: Pediatric Endocrinology Problem [...] regimen as necessary. Ashanti Roque M.D. / [id number] / [id number] / [id number] / 83559 cc: Neri Mojica M.D. [address] [facility] [address] [place], [place] MedRecNo: [id number], Account: [id number], DocSeq: [id number] Addendum December 09 2006 Alin's random urine [...] | | | | | [address] [place], | | | | | | [place] [address] | | | | | | [phone] | | | | | | | [...] - AVELINA | [address] | [place], [place] | | | [facility] | [facility] | [address] | | | TESTS | | | | + + + + + | [facility] | [address] | [place], [place] | | | TESTS | [facility] | [address] | | + + + + + documented in this encounter Visit Diagnoses Not on filedocumented in this encounter"
--- OUTSIDE RECORDS SUMMARY | ~2020-01-14 | XMS | Encounter Summary ---
Demographics + + + | Address | [address] | | | [place] [address] | + + + | Home Phone [...] Samantha Ramos | ECON | [address] # | | | | | [place] | | | | | [address] | | + + + + + Care Team Providers + +------+ + | Care Deboning Team Leader Name | Role | Phone [...] | | | | | Procedures | [place], [place] | floor | | | | | CONSULT TO | [address] | [place], [place] | | | | | GI PROCEDURE | Phone: | [address] | | | | | UNIT: EGD | [phone] | Phone: | | | | | | Fax: | [phone] | | | | | | [phone] | Fax: | | | | | | | [phone] | + +--------+ + + + + [...] | | | | | Procedures | [facility] | [facility] and | | | | | CONSULT TO | Rd | Healing, | | | | | SURGERY - | [place], [place] | [facility] 2 | | | | | GENERAL | [address] | [place], [place] | | | | | CONSULT TO | Phone: | [phone] | | | | | SURGERY - | [phone] | Phone: | | | | | GENERAL | Fax: | [phone] | | | | | | [phone] | Fax: | | | | | | | [phone] | + +--------+ + + + + [...] | | | | [address] [place] | Ave [place], [place] | (Primary Dx) | | | | for Health and | [address] | | | | | [facility], [facility] 2 | [phone] | | | | | [place], [place] | | | | | | [address] | | | | | | [phone] | | | +--------+---------+ + + + [...] might be different fr om the original. [facility] Department of Surgery [facility] [...] was mildly elevated but no evidence of MN. V/Q was neg f or PE. Functional [...] Vitals reviewed. Labs/Cultures/Pathology: HBA1c 9.8% Imaging/Diagnostic Studies: [facility] GASTRIC EMPTYING STUDY 07/25/19: - No report - Severe gastroparesis seen [facility] GASTRIC EMPTYING STUDY Order: [id number] Status: Final result Visible to patient: No (Not Released) Details Reading Physician Reading Date Result Priority Emmanuel Mohamud MD 08/27/2015 Routine Component 3yr ago [facility] GASTRIC EMPTYING EXAM: Gastric emptying study on [...] t he above plan. Silke Flores MD [facility] Pager #[phone] STAFF: A resident assisted with documenting this [...] | | | | | | [address] [place], | | | | | | [place] [address] | | | | | | [phone] | | | | | | | | +--------+---------+ + + + documented as of this encounter Visit Diagnoses + + | Diagnosis | + + | History of diabetic gastroparesis - Primary Personal history of other endocrine, | | metabolic, and immunity disorders | + + documented in this encounter
--- OUTSIDE RECORDS SUMMARY | ~2020-01-14 | XMS | Encounter Summary ---
Demographics + + + | Address | [address] | | | [place] [address] | + + + | Home Phone | | + + + | Preferred Language | Unknown | + + + | Marital Status | Single | + + + | Yazidism Affiliation | Unknown | + + + | Race | Unknown | + + + | Ethnic Group | Unknown | + + + Author + + + | Author | Located Within [facility] | | | and [place] | + + + | Organization | Located Within [facility] | | [...] [place] | | | | | [address] | | + + + + + Care Team Providers + +------+ + | Care Flat Knitter Name | Role | Phone | + [...] + + | 06/09/ | Hospital | [facility] | Diony Hollis, | | | 2019 - | Encounter | [facility] | [address] | | | | | CARE FLOOR [address] | [place] [address] | | | 06/10/ | | [address] | [phone] | | | 2019 | | [place], [place] | | | | | | [address] | Solomon Jonas MD [address] | | | | | [phone] | [address] | | | | | | [place] [address] | | | | | | [phone] | | | | | | | | | | | | Jannette Spears MD | | | | | | [address] | | | | | | [place] [address] | | | | | | [phone] | | | | | | | | | | | | Andrey Gatica DO | | | | | | [address] | | | | | | [place] [address] | | | | | | [phone] | | | | | | | [...] might be different from th e diomedes. [facility] MEDICAL HOSPITALIST TEAM Patient leave AGAINST MEDICAL ADVICE documentation Pt. Name/Age/: Brooks Marquez 28 y.o. 1990 Date of Admission: 06/09/2019 Date of leaving hospital AGAINST MEDICAL ADVICE: 2018 PCP: Erich Yates Note adjusto writer operator provider: Solomon Jonas MD HPI/Reason for Admission:-Chest pain with elevated troponin Hospital course, including complications: 28 years old gentleman with type 1 diabetes with renal complication and gastroparesis hyper tension chronic kidney disease stage III, chronic pain on narcotics status post right BKA fo r necrotizing fasciitis October 2018 transferred to [facility] from [facility] for anup st pain and elevated troponin Associated symptoms are diarrhea ongoing for which he stated as a chronic at admitting prov 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[place] and EGD with history of gastric ulcers He also have gastropathy which was documented [facility] by gastric emptying study in 2004 [...] insulin IV morphine and tra nsferred to [facility] due to elevated troponin EKG shows sinus tachycardia no acute ischemic brown e repeat troponin at [facility] was unremarkable by record [...] a scheduled gastroenterology appointment in June at [facility] for p ossible gastric pacemaker acute [...] both patient and mother requesting to leave [facility] MEDICAL ADVICE before I have a [...] - 06/10/2019 4:55 AM PDTPt transferred from [facility]. Admitted by Dr. Ramakrishna Spears. Ewa grier called at approximated [phone] as patient was getting very agitated and [...] | | | POC | performed at [facility];[address] | | LABORATORY | | | | [address];[place], [place] | | | | | | [address] | | | | + + + + + + + + | Specimen | + + | | + + + + + + + | Performing | Address | City/State/Zipcode | Phone Number | | Organization | | | | + + + + + | [facility] | [address] | [place] [address] | [phone] | + + + + + Troponin I (06/10/2019 5:58 AM PDT) + + + + + + | Component | Value | Ref Range | Performed | Pathologist | | | | | At | Signature | + + + + + + | Troponin I | <0.006Comment: 0.04 | 0.00 - 0.04 | [facility] | | | | ng/mL or [...] at | | | | | | [facility];[address] [facility] | | | | | | [facility];[place] [address] | | | | + + + + + + + + | Specimen | + + | | + + + + + + + | Performing | Address | City/State/Zipcode | Phone Number | | Organization | | | | + + + + + | [facility] | [address] | [place] [address] | [phone] | + + + + + Hemoglobin A1C (06/10/2019 5:58 AM PDT) + + + + + + | Component | Value | Ref Range | Performed | Pathologist | | | | | At | Signature | + + + + + + | Hemoglobin | 8.8 (H)Comment: HbA1c | 4.0 - 6.0 % | [facility] | | | A1c | method [...] | | | | | performed at [facility], [address] | | | | | | [address], | | | | | | [place] [address] | | | | + + + + + + + + | Specimen | + + | Blood | + + + + + + + | Performing | Address | City/State/Zipcode | Phone Number | | Organization | | | | + + + + + | [facility] | [address] | [place] [address] | [phone] | + + + + + TSH (06/10/2019 5:58 AM PDT) + + + + + + | Component | Value | Ref Range | Performed | Pathologist | | | | | At | Signature | + + + + + + | TSH | 0.811Comment: Testing | 0.450 - 5.100 | [facility] | | | | performed at [facility];[address] | uIU/mL | LABORATORY | | | | [address];[place], [place] | | | | | | [address] | | | | + + + + + + + + | Specimen | + + | Blood | + + + + + + + | Performing | Address | City/State/Zipcode | Phone Number | | Organization | | | | + + + + + | [facility] | [address] | [place] [address] | [phone] | + + + + + Basic [...] 46 (L)Comment: GFR <60: | >60 | [facility] | | | GFR | CHRONIC [...] | | | | | | MDRD IDNH traceable | | | | | | equation.Testing | | | | | | performed at [facility];[address] | | | | | | [facility];[place], [place] | | | | | | [address] | | | | + + + + + + + + | Specimen | + + | Blood | + + + + + + + | Performing | Address | City/State/Zipcode | Phone Number | | Organization | | | | + + + + + | [facility] | [address] | [place] [address] | [phone] | + + + + + CBC [...] [facility] | | | | performed at [facility];[address] | | LABORATORY | | | | [address];[place] | | | | | | [address] | | | | + + + + + + + + | Specimen | + + | Blood | + + + + + + + | Performing | Address | City/State/Zipcode | Phone Number | | Organization | | | | + + + + + | [facility] | [address] | [place] [address] | [phone] | + + + + + ECG [...] | | | POC | performed at [facility];[address] | | LABORATORY | | | | [address];[place] | | | | | | [address] | | | | + + + + + + + + | Specimen | + + | | + + + + + + + | Performing | Address | City/State/Zipcode | Phone Number | | Organization | | | | + + + + + | [facility] | [address] | [place] [address] | [phone] | + + + + + Troponin I (06/09/2019 11:38 PM PDT) + + + + + + | Component | Value | Ref Range | Performed | Pathologist | | | | | At | Signature | + + + + + + | Troponin I | <0.006Comment: 0.04 | 0.00 - 0.04 | [facility] | | | | ng/mL or [...] at | | | | | | [facility];[address] | [address];[place] [address] | | | | + + + + + + + + | Specimen | + + | Blood | + + + + + + + | Performing | Address | City/State/Zipcode | Phone Number | | Organization | | | | + + + + + | [facility] | [address] | [place] [address] | [phone] | + + + + + Lipid [...] | | | Calculated | performed at [facility], [address] | | LABORATORY | | | | [address], | | | | | | [place] [address] | | | | + + + + + + + + | Specimen | + + | Blood | + + + + + + + | Performing | Address | City/State/Zipcode | Phone Number | | Organization | | | | + + + + + | [facility] | [address] | [place] [address] | [phone] | + + + + + Troponin [...] at | | | | | | [facility];[address] [facility] | | | | | | [facility];[place] [address] | | | | + + + + + + + + | Specimen | + + | Blood | + + + + + + + | Performing | Address | City/State/Zipcode | Phone Number | | Organization | | | | + + + + + | [facility] | [address] | [place] [address] | [phone] | + + + + + POC Glucose (06/09/2019 8:30 PM PDT) + + + + + + | Component | Value | Ref Range | Performed | Pathologist | | | | | At | Signature | + + + + + + | Glucose, | 152 (H)Comment: Testing | 65 - 99 mg/dL | [facility] | | | POC | performed at [facility];[address] | | LABORATORY | | | | [address];[place] | | | | | | [address] | | | | + + + + + + + + | Specimen | + + | | + + + + + + + | Performing | Address | City/State/Zipcode | Phone Number | | Organization | | | | + + + + + | [facility] | [address] | [place] [address] | [phone] | + + + + + documented [...]
--- OUTSIDE RECORDS SUMMARY | ~2020-01-14 | XMS | Encounter Summary ---
Demographics + + + | Address | [address] | | | [place] [address] | + + + | Home Phone [...] Samantha Ramos | ECON | [address] | | | | | [place] | | | | | [address] | | + + + + + Care Team Providers + +------+ + | Care Asset Management Coordinator Name | Role | Phone | + +------+ + PCP | Unavailable | + +------+ + Encounter Details +--------+ + + + + | Date | Type | Department | Care Team | Description | +--------+ + + + + | 09/30/ | Office | [facility] | Clinic, Pediatric | Progress Note | | 2005 | Visit-Trans | BIOMETRICS CONSULTANT | Endocrinology | | | | cribed [...] as of this encounter Progress Notes Interface, Hoist Operator In - 04/25/2005 12:43 AM PDT [id number] NAHOMY RAYMOND BROOKS [place] [facility] Date: 09/30/2004 [...] eats. DENISSE Carr, CNSD, LD AT / [id number] / [id number] / [id number] / documented i n this encounter Plan of Treatment +--------+---------+ + + + | Date | Type | Specialty | Care Team | Description | +--------+---------+ + + + | 01/24/ | Office | Surgery | Neri Steven MD | | | 2019 | Visit | | [address] | | | | | | [place], | | | | | | [place] [address] | | | | | | [phone] | | | | | | | | +--------+---------+ + + + documented as of this encounter Visit Diagnoses Not on filedocumented in this encounter"
--- OUTSIDE RECORDS SUMMARY | ~2020-01-14 | XMS | Encounter Summary ---
Demographics + + + | Address | [address] | | | [place] [address] | + + + | Home Phone [...] [place] | | | | | [address] | | + + + + + Care Team Providers + +------+ + | Care Sound Equipment Mechanic Name | Role | Phone | + +------+ + | Erich Yates | PCP | | + +------+ + Encounter Details +--------+ + + + + | Date | Type | Department | Care Team | Description | +--------+ + + + + | 01/11/ | Orders Only | [facility] | Conversion | | | 2018 | | [place]PH[place]OLOGY [place] | Transaction, | | | | | [address] | Provider Unknown | | | | | [address] [place], [place] | | | | | | [address] | (Fax) | | | | | [phone] | | | +--------+ + + + [...]
--- OUTSIDE RECORDS SUMMARY | ~2020-01-14 | XMS | Clinical Summary ---
Demographics + + + | Address | [address] | | | [place] [address] | + + + | Home Phone [...] Samantha Ramos | ECON | [address] | | | | | [place], [place] | | | | | [address] | | + + + + + Care Team Providers + +------+ + | Care Educational Assistant Teacher Name | Role | Phone | + +------+ + | Erich Yates PA-C | PCP | | + +------+ + Source Comments VER[facility] is [facility] live on both [facility] and [facility] Allergies + + + + + [...] | | | | | [address] [place], | | | | | | [place] [address] | | | | | | [phone] | | | | | | | [...] | | | + +--------+ +--------+-------+---------+--------+ | [employer]ICA[employer] | [employer] | xxxxxxxx | 04/03/20 | | | [...] [place] | | | 1 (Home) | [address] | + +--------+ +--------+ + + Advance [...]
--- OUTSIDE RECORDS SUMMARY | ~2020-01-14 | XMS | Encounter Summary ---
Demographics + + + | Address | [address] | | | [place] [address] | + + + | Home Phone [...] Samantha Ramos | ECON | [address] # | | | | | [place] | | | | | [address] | | + + + + + Care Team Providers + +------+ + | Care Larry Operator Name | Role | Phone | [...] | Diabetic | Lashawn Tan, | [address] | | | | | gastroparesi | [address] | [address] | | | | | s (HCC) | [address] | Center for | | | | | Procedures | [facility] | [facility] and | | | | | CONSULT TO | Rd | Healing, | | | | | SURGERY - | [place], [place] | Building [address] | | | | | GENERAL | [address] | [place], [place] | | | | | CONSULT TO | Phone: | [phone] | | | | | SURGERY - | [phone] | Phone: | | | | | GENERAL | Fax: | [phone] | | | | | | [phone] | Fax: | | | | | | | [phone] | + +--------+ + + + + [...] | | | ogy | Abdominal | [facility], | [address]2 [address] | | | | | pain | Vicky Fang, | [address] | | | | | abdominal | SUPPORTABILITY ENGINEER [address] | [facility] | | | | | pain | [place] | Health and | | | | | | Street | Healing, | | | | | | [address] | [address] | | | | | | [facility], | [place], [place] | | | | | | [place] [address] | [address] | | | | | | Phone: | Phone: | | | | | | [phone] | [phone] | | | | | | Fax: | Fax: | | | | | | [phone] | [phone] | +--------+--------+ + + + + Encounter Details +--------+---------+ + + + | Date | Type | Department | Care Team | Description | +--------+---------+ + + + | 07/02/ | Office | Digestive Health | Lashawn Joy, | Diabetic | | 2019 | Visit | Center at [address]2 [address] | PAWandaC [address] [facility] | gastroparesis (HCC) | | | | [facility] | [facility] [address] | (Primary Dx); | | | | for Health and | [place], [place] | Chronic diarrhea | | | | [facility], [facility] 2 | [address] | | | | | [place], [place] | [phone] | | | | | [address] | | | | | | [phone] | | | +--------+---------+ + + + [...] once the orders have been submitted to [facility]. Please do not hesitate to contact my office via phone or Iker[employer]hart if you have any questions. Thank you! [...] is reported. SOCIAL HISTORY: Pt lives in [place], [place] with his mother. Not working. Smokes [...] Lashawn Joy PA-C [facility] [address] [facility] Mailcode: [place] [address] documented in this encounter Plan of Treatment +--------+---------+ + + + | Date | Type | Specialty | Care Team | Description | +--------+---------+ + + + | 01/24/ | Office | Surgery | Neri Steven MD | | | 2020 | Visit | | [address] | | | | | | [address] [place], | | | | | | [place] [address] | | | | | | [phone] | | | | | | | [...] [address] | [place], [place] | [phone] | | [place] | | | | [...] [address] | [place] | [phone] | | [place] | | | | [...] [address] | [place], [place] | [phone] | | [place] | | | | [...] [address] | [place], [place] | [phone] | | [place] | | | | [...] [facility] | [address] | [place] [address] | | | SERVICES, CORE | [address] [...] | + + + + + | [place] [facility] - | [address] | [place] [address] | | | [place] | | | [...] | | | LABORATORY | | | [place] | | | SERVICES, | | | [...] MDRD equation recommended by the National | [facility] | | Kidney Disease Education [...] | + + + + + | [facility] | [address] | [place] [address] | | | SERVICES, CORE | PARK [...] VERITO [facility] | [address] | [place] [address] | | | SERVICES, CORE | PARK [...]
--- OUTSIDE RECORDS SUMMARY | ~2020-01-14 | XMS | Encounter Summary ---
Demographics + + + | Address | [address] | | | [place] [address] | + + + | Home Phone [...] [place] | | | | | [address] | | + + + + + Care Team Providers + +------+ + | Care Down Filler Name | Role | Phone | + +------+ + | Erich Yates | PCP | | + +------+ + Encounter Details +--------+ + + + + | Date | Type | Department | Care Team | Description | +--------+ + + + + | 04/18/ | Orders Only | [facility] | Provider, | Chronic kidney | | 2019 | | SYSTEM GENERIC OP | [place] [address] | disease, stage III | | | | CONVERSION [address] | [address] | (moderate) ([facility]); | | | | [address] [place], [place] | [place] [address] | Proteinuria; Type 1 | | | | [address] | | diabetes mellitus | | | | [phone] | | with diabetic | | | | | | nephropathy ([facility]); | | | | | | Chronic kidney | | | | | | disease, stage III | | | | | | (moderate) ([facility]) | +--------+ + + + + Social [...] | | Indicated | | | (moderate) ([facility]) | 01/15/2021 | | | | | Proteinuria Type 1 | | | | | | diabetes mellitus | | | | | | with diabetic | | | | | | nephropathy ([facility]) | | | | | | Chronic kidney | | | | | | disease, stage III | | | | | | (moderate) ([facility]) | | + +------+--------+ + + | Protein/Creatinine | Lab | Routin | Chronic kidney | Expected: | | Ratio, Urine | | e | disease, stage III | 03/07/2019, Expires: | | | | | (moderate) ([facility]) | 01/15/2021 | | | | | Proteinuria Type 1 | | | | | | diabetes mellitus | | | | | | with diabetic | | | | | | nephropathy ([facility]) | | | | | | Chronic kidney | | | | | | disease, stage III | | | | | | (moderate) ([facility]) | | + +------+--------+ + + documented [...]
--- OUTSIDE RECORDS SUMMARY | ~2020-01-14 | XMS | Encounter Summary ---
Demographics + + + | Address | [address] | | | [place] [address] | + + + | Home Phone [...] Samantha Ramos | ECON | [address] # | | | | | [place], [place] | | | | | [address] | | + + + + + Care Team Providers + +------+ + | Care Pr Intern Name | Role | Phone | [...] Rd | | | | | | [place], [place] | | | | | | [address] | | | | | | [phone] | | | | | | | [...] | | | | | [address] [place], | | | | | | [place] [address] | | | | | | [phone] | | | | | | | [...] | + + + + + | [facility] | [address] [facility] | [place] [address] | | | PATHOLOGY | [address] | | | + + + + + | [facility] | [address] | [place] [address] | | | PATHOLOGY | [address] [...] DEPARTMENT OF | [address] | [place] [address] | | | PATHOLOGY | [address] | | | + + + + + | [facility] | [address] | [place] [address] | | | PATHOLOGY | [address] [...] | + + + + + | [facility] | [address] [facility] [address] | [place] [address] | | | PATHOLOGY | [address] | | | + + + + + | [facility] | [address] [place] [address] | [place] [address] | | | PATHOLOGY | [address] [...] | + + + + + | [facility] | [address] [facility] | [place] [address] | | | PATHOLOGY | [address] | | | + + + + + | [facility] | [address] [facility] | [place] [address] | | | PATHOLOGY | [address] [...] | + + + + + | [facility] | [address] [facility] | [place] [address] | | | PATHOLOGY | [address] | | | + + + + + | [facility] | [address] [facility] | [place] [address] | | | PATHOLOGY | [address] [...] Performed At | + + + | [id number] CALCIUM Checked and phoned. | [facility] | | | DEPARTMENT OF | | | PATHOLOGY | + + + + + + + + | Performing | Address | City/State/Zipcode | Phone Number | | Organization | | | | + + + + + | [facility] | [address] | [place] [address] | | | PATHOLOGY | [address] | | | + + + + + | [facility] | [address] | [place] [address] | | | PATHOLOGY | [address] | | | + + + + + CHEMISTRY MASTER PANEL (12/03/2002 6:00 AM PST) + + | Specimen | + + | | + + + + + | Narrative | Performed At | + + + | [id number] CALCIUM Checked and phoned. | [facility] | | | DEPARTMENT OF | | | PATHOLOGY | + + + + + + + + | Performing | Address | City/State/Zipcode | Phone Number | | Organization | | | | + + + + + | [facility] | [address] | [place] [address] | | | PATHOLOGY | [address] | | | + + + + + | [facility] | [address] | [place] [address] | | | PATHOLOGY | [address] [...] | + + + + + | [facility] | [address] [facility] [address] | [place] [address] | | | PATHOLOGY | [address] | | | + + + + + | [facility] | [facility] | [place] [address] | | | PATHOLOGY | [address] [...] | + + + + + | [facility] | [address] | [place] [address] | | | PATHOLOGY | [address] | | | + + + + + | [facility] | [address] | [place] [address] | | | PATHOLOGY | [address] | | | + + + + + PHOSPHORUS, PLASMA (12/03/2002 2:20 AM PST) + +---------+ + + + | Component | Value | Ref Range | Performed | Pathologist | | | | | At | Signature | + +---------+ + + + | PHOSPHORUS, | 2.1 (L) | 2.5 - 5.0 mg/dL | [facility] | | | PLASMA | | | [...] | + + + + + | [facility] | [address] | [place] [address] | | | PATHOLOGY | [address] | | | + + + + + | [facility] | [address] | [place] [address] | | | PATHOLOGY | [address] [...] | + + + + + | [facility] | [address] | [place] [address] | | | PATHOLOGY | [address] | | | + + + + + | [facility] | [address] | [place] [address] | | | PATHOLOGY | [address] [...] | | | | Test performed by [facility] | | | | | | [facility] | | | | | | [facility]. | | | | + + + + + + + + | Specimen | + + | | + + + + + + + | Performing | Address | City/State/Zipcode | Phone Number | | Organization | | | | + + + + + | [facility] | [address] | [place] [address] | | | LABORATORY | | | [...] | + + + + + | [facility] | [address] | [place] [address] | | | PATHOLOGY | [address] | | | + + + + + | [facility] | [address] | [place] [address] | | | PATHOLOGY | [address] [...] Performed At | + + + | [id number] Checked and phoned. CO2 [id number] Checked and phoned. | [facility] | | | DEPARTMENT OF | | | PATHOLOGY | + + + + + + + + | Performing | Address | City/State/Zipcode | Phone Number | | Organization | | | | + + + + + | [facility] | [facility] | [place] [address] | | | PATHOLOGY | [address] | | | + + + + + | [facility] | [address] [place] [address] | [place] [address] | | | PATHOLOGY | [address] [...] Performed At | + + + | [id number] Checked and phoned. CO2 [id number] Checked and phoned. | [facility] | | | DEPARTMENT OF | | | PATHOLOGY | + + + + + + + + | Performing | Address | City/State/Zipcode | Phone Number | | Organization | | | | + + + + + | [facility] | [address] [facility] [facility] [address] | [place] [address] | | | PATHOLOGY | [address] | | | + + + + + | [facility] | [facility] | [place] [address] | | | PATHOLOGY | [address] [...] Performed At | + + + | [id number] Checked and phoned. CO2 [id number] Checked and phoned. | [facility] | | | DEPARTMENT OF | | | PATHOLOGY | + + + + + + + + | Performing | Address | City/State/Zipcode | Phone Number | | Organization | | | | + + + + + | [facility] | [facility] | [place] [address] | | | PATHOLOGY | [address] | | | + + + + + | [facility] | [facility] | [place] [address] | | | PATHOLOGY | [address] | | | + + + + + CHEMISTRY MASTER PANEL (12/02/2002 6:45 PM PST) + + | Specimen | + + | | + + + + + | Narrative | Performed At | + + + | [id number] Checked and phoned. CO2 [id number] Checked and phoned. | [facility] | | | DEPARTMENT OF | | | PATHOLOGY | + + + + + + + + | Performing | Address | City/State/Zipcode | Phone Number | | Organization | | | | + + + + + | [facility] | [address] | [place] [address] | | | PATHOLOGY | [address] | | | + + + + + | [facility] | [address] | [place] [address] | | | PATHOLOGY | [address] | | | + + + + + documented in this encounter Visit Diagnoses Not on filedocumented in this encounter"
--- OUTSIDE RECORDS SUMMARY | ~2020-01-14 | XMS | Encounter Summary ---
Demographics + + + | Address | [address] | | | [place] [address] | + + + | Home Phone [...] Samantha Ramos | ECON | [address] # | | | | | [place] | | | | | [address] | | + + + + + Care Team Providers + +------+ + | Care Precision Layout Worker Name | Role | Phone | [...] | | 2019 | | Center at [facility] [address] | [address] | Review | | | | [address] [facility] | Ave [place], [place] | | | | | for Health and | [address] | | | | | [facility] 2 | [phone] | | | | | [place], [place] | | | | | | [address] | | | | | | [phone] | | | +--------+ + + + [...] | | | | | [address] [place], | | | | | | [place] [address] | | | | | | [phone] | | | | | | | | +--------+---------+ + + + documented as of this encounter Visit Diagnoses Not on filedocumented in this encounter"
--- OUTSIDE RECORDS SUMMARY | ~2020-01-14 | XMS | Encounter Summary ---
Demographics + + + | Address | [address] | | | [place] [address] | + + + | Home Phone [...] [place] | | | | | [address] | | + + + + + Care Team Providers + +------+ + | Care Stoker Erector Name | Role | Phone | + [...] + + | 09/19/ | Surgery | [facility] | Tc Mora | CYSTOSCOPY W/ | | 2017 | | MED CTR OR INTRA OP | MD [address] | URETEROSCOPY W/ | | | | [address] | [place] | LASER LITHOTRIPSY | | | | [place] | [address] | WITH STENT PLACEMENT | | | | [address] | | | | | | [phone] | | | +--------+---------+ + + + [...] might be differ ent from the original. [facility] Urology Progress Note Brooks Marquez is [...] + | [facility] | [address] | [place] | [phone] | | [facility] | | [address] | | | - LABORATORY | | [...] | | | | | mmol/L | [facility] | | | | | | MEDICAL | | | | | | CENTER - | | | | | | LABORATORY | | + + + + + + | K | 5.7 (H) | 3.5 - 5.1 | [facility] | | | | | mmol/L | [facility] | | | | [...] mL/min/1.73m2 | [facility] | | | [place] | RATE,ESTIMATED | | MEDICAL | | | | mL/min/1.91c9Ewja than | | CENTER - | | [...] [address] | [place] | [phone] | | [facility] | | [address] | | | - LABORATORY | | [...] [address] | [place] | [phone] | | [facility] | | [address] | | | - LABORATORY | | [...] this test. These results should be | [facility] | | integrated into the clinical context for interpretation. | [facility] | | | - LABORATORY | + + + + + + + + | Performing | Address | City/State/Zipcode | Phone Number | | Organization | | | | + + + + + | [facility] | [address] | [place], [place] | [phone] | | [facility] | | [address] | | | - LABORATORY | | [...] + | [facility] | [address] | [place] | [phone] | | [facility] | | [address] | | | - LABORATORY | | [...] - 1.030 | [facility] | | | [place] | | | [facility] | | [...] [address] | [place] | [phone] | | [facility] | | [address] | | | - LABORATORY | | [...] [address] | [place] | [phone] | | [facility] | | [address] | | | - LABORATORY | | [...] + | [facility] | [address] | [place] | [phone] | | [facility] | | [address] | | | - LABORATORY | | [...] [address] | [place] | [phone] | | [facility] | | [address] | | | - LABORATORY | | [...] + | [facility] | [address] | [place] | [phone] | | [facility] | | [address] | | | - LABORATORY | | [...] (H) | 7 - 18 mg/dL | [facility] | | | | | | ST. [...] mL/min/1.73m2 | [facility] | | | [place] | RATE,ESTIMATED | | MEDICAL | | | | mL/min/1.11y2Abzv than | | CENTER - | | [...] [address] | [place] | [phone] | | [facility] | | [address] | | | - LABORATORY | | [...] ST. | [address] | [place] | [phone] | | [facility] | | [address] | | | - LABORATORY | | [...] MD | | | | | | ([id number]) on 09/21/2018 | | | | | [...] [address] | [place] | [phone] | | [facility] | | [address] | | | - LABORATORY | | [...] | | | | g/dL | [facility] | | | | [...] [address] | [place] | [phone] | | [facility] | | [address] | | | - LABORATORY | | [...] mL/min/1.73m2 | [facility] | | | [place] | RATE,ESTIMATED | | MEDICAL | | | | mL/min/1.33z3Kxol than | | CENTER - | | [...] [address] | [place] | [phone] | | [facility] | | [address] | | | - LABORATORY | | [...] [address] | [place] | [phone] | | [facility] | | [address] | | | - LABORATORY | | [...] mL/min/1.73m2 | [facility] | | | [place] | RATE,ESTIMATED | | MEDICAL | | | | mL/min/1.97c6Fyhl than | | CENTER - | | [...] [address] | [place] | [phone] | | [facility] | | [address] | | | - LABORATORY | | [...] [address] | [place] | [phone] | | [facility] | | [address] | | | - LABORATORY | | [...] [facility] | | | | | | at:[phone]. | | | | + + + [...] at: 01 - Sebastien [address] [facility] | REFERENCE LAB | | [place], [place] [address] Code Number Stamper: Sarabjit Love MD, Phone: | [facility] | | [phone] | | + + + + + + + + | Performing | Address | City/State/Zipcode | Phone Number | | Organization | | | | + + + + + | REFERENCE LAB | [address] | [place], [place] | [phone] | | [facility] | [place] | [address] | | + + + + + [...] ST. | [address] | [place] | [phone] | | [facility] | | [address] | | | - LABORATORY | | [...] | | | | | | | 8044-2570 Use NIGHT DOSE for | | | | | | | doses scheduled: HS, 3AM, | | | | | | | Nighttime [id number], | | | | | | + [...]
--- OUTSIDE RECORDS SUMMARY | ~2020-01-14 | XMS | Encounter Summary ---
Demographics + + + | Address | [address] | | | [place] [address] | + + + | Home Phone [...] Samantha Ramos | ECON | [address] # | | | | | [place] | | | | | [address] | | + + + + + Care Team Providers + +------+ + | Care Barrel Repairer Name | Role | Phone | + +------+ + PCP | Unavailable | + +------+ + Encounter Details +--------+ + + + + | Date | Type | Department | Care Team | Description | +--------+ + + + + | 08/27/ | Office | [facility] | Clinic, Pediatric | Progress Note | | 2005 | Visit-Trans | [facility]ARK INTERPRETIVE RANGER | Endocrinology | | | | cribed [...] as of this encounter Progress Notes Interface, Boat Operator In - 10/18/2005 10:01 PM PST [id number] MARQUEZ RAYMOND BROOKS [facility] Date: 08/27/2005 [...] the school week, his father lives in [place], and apparently the school is better and [...] was 56. Diet: Brooks is on a qjxpahdxuqzo-wi-ewgmhcg ratio. He has had dietary education about [...] sites. Assessment: Brooks is a 14-year and 99-ogxra-kde boy with type 1 diabetes, who has poor control although it is somewhat improved from previously. He is relatively noncompliant with his diabetes. I have made the following recommendations: 1. I have asked the family to review carbohydrate counting with our tube fitter today. 2. I have recommended to Brooks [...] in 4 months' time. Ashanti Roque M.D. Concrete Hopper Operator Pediatric Endocrinology / [id number] / [id number] / [id number] / [id number] cc: Neri Mojica [address] [place] [address]. Electronically signed by Ashanti Roque 09-10-2005 04:52:54 [...] | | | | | [place], | | | | | | [place] [address] | | | | | | [phone] | | | | | | | | +--------+---------+ + + + documented as of this encounter Visit Diagnoses Not on filedocumented in this encounter"
--- OUTSIDE RECORDS SUMMARY | ~2020-01-14 | XMS | Encounter Summary ---
Demographics + + + | Address | [address] | | | [place] [address] | + + + | Home Phone [...] Samantha Ramos | ECON | [address] # | | | | | [place] | | | | | [address] | | + + + + + Care Team Providers + +------+ + | Care Employment Training Specialist Name | Role | Phone | [...] | | | | [facility] | [place], [place] | | | | [address] | [address] | | | | | [place] | [phone] | | | | | [place], [place] | | | | | | [address] | | | | | | [phone] | | | +--------+ + + + [...] | | | | | [place], | | | | | | [place] [address] | | | | | | [phone] | | | | | | | [...] + + + | [facility] | [address] | [place], [place] | | | [facility] CARE | [address] | [address] | | | TESTS | | | | + + + + + | [facility] | [address] | [place], [place] | | | TESTS | [facility] | [address] | | + + + + + documented in this encounter Visit Diagnoses Not on filedocumented in this encounter"
--- OUTSIDE RECORDS SUMMARY | ~2020-01-14 | XMS | Clinical Summary ---
Demographics + + + | Address | [address] | | | [place] [address] | + + + | Home Phone [...] [place] | | | | | [address] | | + + + + + Care Team Providers + +------+ + | Care Industrial Real Estate Agent Name | Role | Phone | [...] skin nightly. | | | 6/20 | | e | | 100 units/mL | | | | 20 | | | | injection (pen) | | | | | | | + + + +---------+------+------+-------+ | | Take 1 tablet by | | 0 | | 04/1 | Disco | | HYDROcodone-acetamin | mouth every 6 hours | | | | 4/20 | ntinu | | ophen (NORCO) | as needed for Pain. | | | | 20 | ed | | 7.5-325 mg per | | | | | | (Ther | | tablet | | | | | | apy | | | | | | | | compl | | | | | | | | eted) | + + + +---------+------+------+-------+ | insulin glargine | Inject 20 Units | | 0 | | 04/1 | Disco | | (LANTUS SOLOSTAR) | under the skin | | | | 6/20 | ntinu | | 100 units/mL | nightly. | | | | 20 | ed | | injection (pen) | | | | | | (Reor | | | | | | | | jessie) | + + + +---------+------+------+-------+ | dicyclomine | | | 0 | 08/3 | 04/1 | Disco | | (BENTYL) 20 MG | | | | 0/20 | 4/20 | ntinu | | tablet | | [...] tablet by | 6 | 0 | 04/1 | 04/1 | Expir | | amoxicillin-clavulan | mouth 2 times daily | tablet | | 6/20 | 9/20 | ed | | ate (AUGMENTIN) | for 3 days. | | | 20 | 20 | | | 875-125 mg per | [...] | | | ketoacidosis without | | 2019 | | | | coma associated | [...] Right: | JOYCE | | 07/14/ | [id number] | | - [id number]: | | | [employer] | | 2020 | / | | Qty: 1 on 09/19/2018 by | | Ureter | - JOYCE | | | /[id number] | | Tc Mora MD at | | | | | | 43 | | [facility] | | | | | | | | [facility] | | | | | | [...] ST. | [address] | [place] | [phone] | | [facility] | | [address] | | | - LABORATORY | | [...] | | Neutrophils | | | [facility] | | [...] + | [facility] | [address] | [place] | [phone] | | [facility] | | [address] | | | - LABORATORY | | [...] + + | Performing | Address | City/State[facility] | Phone Number | | Organization | | | | + + + + + | [facility] | [address] | [place] | [phone] | | [facility] | | [address] | | | - LABORATORY | | [...] 2.67 (H) | 0.70 - 1.30 | [facility] | | | | | mg/dL | [facility] | | | | | | MEDICAL | | | | | | CENTER - | | | | | | LABORATORY | | + + + + + + | eGFR if not | 28 (L)Comment: | >=60 | [facility] | | | | GLOMERULAR FILTRATION | mL/min/1.73m2 | [facility] | | | ERITREAN | RATE,ESTIMATED | | MEDICAL | | | | mL/min/1.54o1Flcr than | | CENTER - | | [...] + | [facility] | [address] | [place] | [phone] | | [facility] | | [address] | | | - LABORATORY | | [...] | mL/min/1.73m2 | [facility] | | | ERITREAN | RATE,ESTIMATED | | MEDICAL | | | | mL/min/1.70f5Kkag than | | CENTER - | | [...] [address] | [place] | [phone] | | [facility] | | [address] | | | - LABORATORY | | [...] ST. | [address] | [place] | [phone] | | [facility] | | [address] | | | - LABORATORY | | [...] + | [facility] | [address] | [place] | [phone] | | [facility] | | [address] | | | - LABORATORY | | [...] | | | | | mmol/L | [facility] | | | | [...] | mL/min/1.73m2 | [facility] | | | ERITREAN | RATE,ESTIMATED | | MEDICAL | | | | mL/min/1.07t7Wqsg than | | CENTER - | | [...] (L) | 3.2 - 4.8 g/dL | [facility] | | | | | | [facility] [...] [address] | [place] | [phone] | | [facility] | | [address] | | | - LABORATORY | | [...] + | [facility] | [address] | [place] | [phone] | | [facility] | | [address] | | | - LABORATORY | | [...] | | | report was sent by [employer] with no significant discrepancy on | | [...] preliminary report was | | sent by [employer] with no significant discrepancyon 01/06/2020 4:25 PM.Dictated [...] | |A preliminary report was sent by [employer] with no significant discrepancy | |on 01/06/2020 [...] | | Reticulocyt | | | [facility] | | | e Count | | | MEDICAL | | | | | | CENTER - | | | | | | LABORATORY | | + + + + + + | Absolute | 0.0553 | 0.0260 - 0.0950 | [facility] | | | Reticulocyt | | M/uL | [facility] | | | e Count | | | MEDICAL | | | | | | CENTER - | | | | | | LABORATORY | | + + + + + + | Immature | 15.1Comment: Values | 2.3 - 15.9 % | [facility] | | | Reticulocyt | above normal range | | . [facility] | | | e Fraction | indicate [...] [address] | [place] | [phone] | | [facility] | | [address] | | | - LABORATORY | | [...] + | [facility] | [address] | [place] | [phone] | | [facility] | | [address] | | | - LABORATORY | | [...] + | [facility] | [address] | [place] | [phone] | | [facility] | | [address] | | | - LABORATORY | | [...] St | [place] | | | [facility] | | [address] | | | - BLOOD BANK | | | | + + + + + Folate (01/06/2020 8:04 AM PDT) + +---------+ + + + | Component | Value | Ref Range | Performed | Pathologist | | | | | At | Signature | + +---------+ + + + | FOLATE | 2.0 (L) | >5.4 ng/mL | [facility] | | | | [address] | [place] | [phone] | | [facility] | | [address] | | | - LABORATORY | | | | + + + + + Ferritin (01/06/2020 8:04 AM PDT) + +---------+ + + + | Component | Value | Ref Range | Performed | Pathologist | | | | | At | Signature | + +---------+ + + + | FERRITIN | 480 (H) | 11 - 307 ng/mL | [facility] | | | | | | ST[facility]anda [...] + | [facility] | [address] | [place] | [phone] | | [facility] | | [address] | | | - LABORATORY | | [...] [address] | [place] | [phone] | | [facility] | | [address] | | | - LABORATORY | | [...] | Not Detected | Not Detected | [facility] | | | 2 | | | [...] + | [facility] | [address] | [place] | [phone] | | [facility] | | [address] | | | - LABORATORY | | [...] - 1.030 | [facility] | | | [place] | | | [facility] | | [address] | [place] | [phone] | | [facility] | | [address] | | | - LABORATORY | | [...] + | Performed at: 01 - [facility] [place] [address], | REFERENCE LAB | | [place], [place] [id number] Ticket Collector Or Usher: Jerome Agudelo MD, Phone: | [facility] | | [phone] | | + + + + + + + + | Performing | Address | City/State/Zipcode | Phone Number | | Organization | | | | + + + + + | REFERENCE LAB | [address] [facility] [address] | [place], [place] | [phone] | | [facility] [place] | [facility] | [address] | | + + + + + [...] [address] | [place] | [phone] | | [facility] | | [address] | | | - LABORATORY | | [...] [address] | [place] | [phone] | | [facility] | | [address] | | | - LABORATORY | | [...] | , Qual | | | [facility] | | [address] | [place] | [phone] | | [facility] | | [address] | | | - LABORATORY | | [...] + | [facility] | [address] | [place] | [phone] | | [facility] | | [address] | | | - LABORATORY | | [...] ST. | [address] | [place] | [phone] | | [facility] | | [address] | | | - LABORATORY | | [...] | | | | CRISTINE HUDDLESTON MD ([id number]) | | | | | | on [...] [address] | [place] | [phone] | | [facility] | | [address] | | | - LABORATORY | | [...] | | | | | | [employer] | | | | | [...] [address] | [place] | [phone] | | [facility] | | [address] | | | - LABORATORY | | [...] [address] | [place] | [phone] | | [facility] | | [address] | | | - LABORATORY | | [...] | | chromogenic agar method. | | [facility] | | | | [...] [address] | [place] | [phone] | | [facility] | | [address] | | | - LABORATORY | | [...] [address] | [place] | [phone] | | [facility] | | [address] | | | - LABORATORY | | [...] | [employer] | MODA | [id number] | | [phone] | | Medica | | MEDICAID HMO | HEALTH | | 018-Pr | 1 | | id | | | MDCD | | esent | | | | | | [place] | | | | | | + +--------+ +--------+ +---------+--------+ | [employer] | MODA | [id number] | | [phone] | | Medica | | MEDICAID HMO [...] | [birth year] | | [address] | | | al/Fam | | 1990 | [phone] | [address] [place], [place] | | | lucian | | | 1 (Home) | [address] | + +--------+ +--------+ + + | Brooks Marquez | Person | Self | [birth year] | | [address] | | | al/Fam | | 1990 | [phone] | [place] | | | [place]ian | | | 1 (Home) | [address] | + +--------+ +--------+ + + Advance Directives + + + + + | Type | Date Recorded | Patient | Explanation | | | | Supervisor Lending Activities | | + + + + + | Power of | | | | | Merchandiser Seasonal | | | | + + + [...]
--- OUTSIDE RECORDS SUMMARY | ~2020-01-14 | XMS | Encounter Summary ---
Demographics + + + | Address | [address] | | | [place] [address] | + + + | Home Phone [...] [place] | | | | | [address] | | + + + + + Care Team Providers + +------+ + | Care Institutional Commodity Analyst Name | Role | Phone | [...] | | | [address] | [place] [address] | | | | | [place] [address] | | | | | | [phone] | | | +--------+ + + + [...]
--- OUTSIDE RECORDS SUMMARY | ~2020-01-14 | XMS | Encounter Summary ---
Demographics + + + | Address | [address] | | | [place] [address] | + + + | Home Phone | | + + + | Preferred Language | Unknown | + + + | Marital Status | Single | + + + | Spiritism Affiliation | Unknown | + + + [...] [place] | | | | | [address] | | + + + + + Care Team Providers + +------+ + | Care Operating System Designer Name | Role | Phone | [...] | | | | [address] [facility] | [place]. | | | | | [address] [place], [place] | [place] [address] | | | | | [address] | | | | | | [phone] | | | +--------+ + + + [...] - 1.03 | EXTERNAL | | | [place], | | | LAB | | | [...]
--- OUTSIDE RECORDS SUMMARY | ~2020-01-14 | XMS | Encounter Summary ---
Demographics + + + | Address | [address] | | | [place] [address] | + + + | Home Phone [...] Samantha Ramos | ECON | [address] # | | | | | [place], [place] | | | | | [address] | | + + + + + Care Team Providers + +------+ + | Care Pad Hand Name | Role | Phone | [...] as of this encounter Progress Notes Interface, Game Tester In - 04/25/2005 2:09 AM PDT [id number] 12/11/2004 12/11/2004 [id number] NHAOMY Durbin [facility] [address] [place], [place] [address] or December 11, 2004 Neri Mojica MD [address], [place] [address] RE: BROOKS MARQUEZ II MR #: [id number] Dear Dr. Mojica: I reviewed Brooks in [facility] today. This is his second visit our clinic, having established care here in September. To recap, he was diagnosed with type 1 diabetes in April 2002 and initially received his education in [facility]. He has been followed by yourself until [...] at this present time, although I did student loan counselor him that this would be optimal [...] months' time. Yours sincerely, Ashanti Roque M.D. Fire Engine Pump Operator, Pediatric Endocrinology / [id number] / [id number] / [id number] / documented i n this encounter Plan of Treatment +--------+---------+ + + + | Date | Type | Specialty | Care Team | Description | +--------+---------+ + + + | 01/24/ | Office | Surgery | Neri Steven MD | | | 2020 | Visit | | [address] | | | | | | [place], | | | | | | [place] [address] | | | | | | [phone] | | | | | | | | +--------+---------+ + + + documented as of this encounter Visit Diagnoses Not on filedocumented in this encounter"
--- OUTSIDE RECORDS SUMMARY | ~2020-01-14 | XMS | Encounter Summary ---
Demographics + + + | Address | [address] | | | [place] [address] | + + + | Home Phone [...] Samantha Ramos | ECON | [address] # | | | | | [place], [place] | | | | | [address] | | + + + + + Care Team Providers + +------+ + | Care Tactical/Mobile Watch Officer Name | Role | Phone | [...] | | | | | [address] [place], | | | | | | [place] [address] | | | | | | [phone] | | | | | | | | +--------+---------+ + + + documented as of this encounter Visit Diagnoses Not on filedocumented in this encounter"
--- OUTSIDE RECORDS SUMMARY | ~2020-01-14 | XMS | Encounter Summary ---
Demographics + + + | Address | [address] | | | [place] [address] | + + + | Home Phone [...] Samantha Ramos | ECON | [address] # | | | | | [place] | | | | | [address] | | + + + + + Care Team Providers + +------+ + | Care Central Supply Nurse Name | Role | Phone | [...] | | 2019 | | Center at [facility] [address] | PA-C [address] [facility] | results | | | | [facility] | [facility] | | | | | [facility] and | [place], [place] | | | | | [facility] 2 | [address] | | | | | [place], [place] | [phone] | | | | | [address] | | | | | | [phone] | | | +--------+ + + + [...] | | | | | [address] [place], | | | | | | [place] [address] | | | | | | [phone] | | | | | | | | +--------+---------+ + + + documented as of this encounter Visit Diagnoses Not on filedocumented in this encounter"
--- OUTSIDE RECORDS SUMMARY | ~2020-01-14 | XMS | Encounter Summary ---
Demographics + + + | Address | [address] | | | [place] [address] | + + + | Home Phone [...] Samantha Ramos | ECON | [address] # | | | | | [place] | | | | | [address] | | + + + + + Care Team Providers + +------+ + | Care Dietary Services Manager Name | Role | Phone [...] | | 2020 | | Center at [facility] [address] | [address] | | | | | [address] [facility] | [address] [place], | | | | | [facility] and | [place] [address] | | | | | [facility] [address] | [phone] | | | | | [place], [place] | | | | | | [address] | | | | | | [phone] | | | +--------+ + + + [...] | | | | | [address] [place], | | | | | | [place] [address] | | | | | | [phone] | | | | | | | | +--------+---------+ + + + documented as of this encounter Visit Diagnoses Not on filedocumented in this encounter"
--- OUTSIDE RECORDS SUMMARY | ~2020-01-14 | XMS | Encounter Summary ---
Demographics + + + | Address | [address] | | | [place] [address] | + + + | Home Phone | | + + + | Preferred Language | Unknown | + + + | Marital Status | Single | + + + | Jew Affiliation | Unknown | + + + | Race | Unknown | + + + | Ethnic Group | Unknown | + + + Author + + + | Author | [facility] | | | and [place] | + + + | Organization | [facility] | | | [...] [place] | | | | | [address] | | + + + + + Care Team Providers + +------+ + | Care Vegetable Packer Name | Role | Phone | [...] | 03/22/ | Telephone | [facility] [place] | [facility], | Referral | | 2019 | | GASTROENTEROLOGY | [address]NA [address] | | | | | [address] [place] | [place], [address] | | | | | [address] [place], [place] | [place], [place] | | | | | [address] | [address] | | | | | [phone] | | | +--------+ + + + [...]
--- OUTSIDE RECORDS SUMMARY | ~2020-01-14 | XMS | Encounter Summary ---
Demographics + + + | Address | [address] | | | [place] [address] | + + + | Home Phone [...] [place] | | | | | [address] | | + + + + + Care Team Providers + +------+ + | Care Press Breaker Name | Role | Phone | + +------+ + | Erich Yates | PCP | | + +------+ + Encounter Details +--------+ + + + + | Date | Type | Department | Care Team | Description | +--------+ + + + + | 05/15/ | Orders Only | [facility] | Conversion | | | 2017 | | [place]Y [place] | Transaction, | | | | | [address] | Provider Unknown | | | | | [address] [place], [place] | | | | | | [address] | (Fax) | | | | | [phone] | | | +--------+ + + + [...] - 1.030 | EXTERNAL | | | [place] | | | LAB | | + [...]
--- OUTSIDE RECORDS SUMMARY | ~2020-01-14 | XMS | Encounter Summary ---
Demographics + + + | Address | [address] | | | [place] [address] | + + + | Home Phone [...] Samantha Ramos | ECON | [address] # | | | | | [place] | | | | | [address] | | + + + + + Care Team Providers + +------+ + | Care Muffler Tender Name | Role | Phone | [...] [address] | | | | | [place], [place] | [place], [place] | | | | | [address] | [address] | | | | | [phone] | [phone] | | | | | | | [...] | | | | | [address] [place], | | | | | | [place] [address] | | | | | | [phone] | | | | | | | [...] | | | | | | [facility] | | | | | | Laboratories. | | | | + + + + + + + + | Specimen | + + | | + + + + + + + | Performing | Address | City/State/Zipcode | Phone Number | | Organization | | | | + + + + + | [facility] | [address] | [place] [address] | | | LABORATORY | | | [...] | uIU/ml | | | | | [facility] | | | | | | Laboratories. | | | | + + + + + + + + | Specimen | + + | | + + + + + + + | Performing | Address | City/State/Zipcode | Phone Number | | Organization | | | | + + + + + | [facility] | [address] | [place] [address] | | | LABORATORY | | | | + + + + + documented in this encounter Visit Diagnoses Not on filedocumented in this encounter"
--- OUTSIDE RECORDS SUMMARY | ~2020-01-14 | XMS | Encounter Summary ---
Demographics + + + | Address | [address] | | | [place] [address] | + + + | Home Phone [...] | Samantha Ramos | ECON | [address] # | | | | | [place], [place] | | | | | [address] | | + + + + + Care Team Providers + +------+ + | Care Supervisor Machining Name | Role | Phone | + [...] as of this encounter Progress Notes Interface, Service Center Supervisor In - 04/25/2005 2:09 AM PDT [id number] 12/11/2004 12/11/[id number]HOMY Durbin [facility] [address] [place], [place] [address] or December 11, 2004 Neri Mojica MD [address], [place] [address] RE: BROOKS MARQUEZ II MR #: [id number] Dear Dr. Mojica: I reviewed Brooks in Endocrine Clinic today. This is his second visit our clinic, having established care here in September. To recap, he was diagnosed with type 1 diabetes in April 2002 and initially received his education in [facility]. He has been followed by yourself until [...] at this present time, although I did adoption counselor him that this would be optimal [...] months' time. Yours sincerely, Ashanti Roque M.D. Automotive Finance Manager, Pediatric Endocrinology / [id number] / [id number] / [id number] / documented i n this encounter Plan of Treatment +--------+---------+ + + + | Date | Type | Specialty | Care Team | Description | +--------+---------+ + + + | 01/24/ | Office | Surgery | Neri Steven MD | | | 2020 | Visit | | [address] | | | | | | [address] [place], | | | | | | [place] [address] | | | | | | [phone] | | | | | | | | +--------+---------+ + + + documented as of this encounter Visit Diagnoses Not on filedocumented in this encounter"
--- OUTSIDE RECORDS SUMMARY | ~2020-01-14 | XMS | Encounter Summary ---
Demographics + + + | Address | [address] | | | [place] [address] | + + + | Home Phone | | + + + | Preferred Language | Unknown | + + + | Marital Status | Single | + + + | Restorationism Affiliation | Unknown | + + + [...] [place] | | | | | [address] | | + + + + + Care Team Providers + +------+ + | Care Information Assurance Manager Name | Role | Phone | [...] + + | 09/29/ | Office | [facility] | Tc Mora | Nephrolithiasis | | 2019 | Visit | [address] | [address] | (Primary Dx); | | | | [place] | [place] | Hyperkalemia; Stage | | | | [address] | [address] | 3 chronic kidney | | | | [phone] | | disease (HCC) | +--------+---------+ + [...] PLACEMENT; Surgeon: Tc Mora MD; Location: [facility] [place] Family History: Family History Problem [...] pH, Urine 6.0 5.0 - 8.0 Specific [place] 1.012 1.001 - 1.030 Protein, Urine 100 [...] ECGs available Confirmed by KARO FLORES, CRISTINE ([id number]) on 09/21/2018 6:31:13 AM Lab Results Component [...] have not thoroughly proofread this note, and statistics professor errors are very likely to occur. CC: [...]
--- OUTSIDE RECORDS SUMMARY | ~2020-01-14 | XMS | Encounter Summary ---
Demographics + + + | Address | [address] | | | [place] [address] | + + + | Home Phone [...] Samantha Ramos | ECON | [address] # | | | | | [place] | | | | | [address] | | + + + + + Care Team Providers + +------+ + | Care Tunnel Form Placing Supervisor Name | Role | Phone | [...] | | Endocrinology at | MD [address] [facility] | | | | | [place] | [address] | | | | | [facility] | [place], [place] | | | | | [address] | [address] | | | | | [place] | [phone] | | | | | [place], [place] | | | | | | [address] | | | | | | [phone] | | | +--------+--------+ + + + [...] | | | | | | [place] [address] | | | | | | [phone] | | | | | | | | +--------+---------+ + + + documented as of this encounter Visit Diagnoses Not on filedocumented in this encounter"
--- OUTSIDE RECORDS SUMMARY | ~2020-01-14 | XMS | Encounter Summary ---
Demographics + + + | Address | [address] | | | [place] [address] | + + + | Home Phone [...] Samantha Ramos | ECON | [address] # | | | | | [place] | | | | | [address] | | + + + + + Care Team Providers + +------+ + | Care Furniture Inspector Name | Role | Phone | + +------+ + | Neri Mojica MD | PCP | | + +------+ + Encounter Details +--------+ + + + + | Date | Type | Department | Care Team | Description | +--------+ + + + + | 08/24/ | Document-Sc | UNKNOWN DEPARTMENT | Other, Faculty | | | 2012 | anned | [address] [facility] | [phone] | | | | | [address] | | | | | | [place], [place] | | | | | | [address] | | | +--------+ + + + [...] | | | | | [address] [place], | | | | | | [place] [address] | | | | | | [phone] | | | | | | | | +--------+---------+ + + + documented as of this encounter Visit Diagnoses Not on filedocumented in this encounter"
--- OUTSIDE RECORDS SUMMARY | ~2020-01-14 | XMS | Encounter Summary ---
Demographics + + + | Address | [address] | | | [place] [address] | + + + | Home Phone [...] [place] | | | | | [address] | | + + + + + Care Team Providers + +------+ + | Care Java Web Developer Name | Role | Phone [...] + + | 07/03/ | Telephone | [facility] | [facility], | Care Plan | | 2019 | | GASTROENTEROLOGY | DANA [address] | | | | | [address] [place] | [place], [address] | | | | | [address] [place], [place] | [place], [place] | | | | | [address] | [address] | | | | | [phone] | | | +--------+ + + + [...]
--- OUTSIDE RECORDS SUMMARY | ~2020-01-14 | XMS | Encounter Summary ---
Demographics + + + | Address | [address] | | | [place] [address] | + + + | Home Phone [...] Samantha Ramos | ECON | [address] # | | | | | [place] | | | | | [address] | | + + + + + Care Team Providers + +------+ + | Care Routing Machine Operator Name | Role | Phone [...] | Diabetic | Lashawn Tan, | [address] | | | | | gastroparesi | [address] | [address] | | | | | s (HCC) | [address] | Center for | | | | | Procedures | [facility] | [facility] and | | | | | CONSULT TO | Rd | Healing, | | | | | SURGERY - | [place], [place] | [address] | | | | | GENERAL | [address] | [place], [place] | | | | | CONSULT TO | Phone: | [phone] | | | | | SURGERY - | [phone] | Phone: | | | | | GENERAL | Fax: | [phone] | | | | | | [phone] | Fax: | | | | | | | [phone] | + +--------+ + + + + [...] | | | ogy | Abdominal | [facility], | Ch[address]2 [address] | | | | | pain | Vicky Fang, | [address] | | | | | abdominal | POOL TECHNICIAN [address] | [facility] | | | | | pain | [place] | Health and | | | | | | Street | Healing, | | | | | | [address] | [address] 2 | | | | | | [facility], | [place], [place] | | | | | | [place] [address] | [address] | | | | | | Phone: | Phone: | | | | | | [phone] | [phone] | | | | | | Fax: | Fax: | | | | | | [phone] | [phone] | +--------+--------+ + + + + Encounter Details +--------+---------+ + + + | Date | Type | Department | Care Team | Description | +--------+---------+ + + + | 07/02/ | Office | Digestive Health | Lashawn Joy, | Diabetic | | 2019 | Visit | Center at H2 [address] | PAWandaC [address] [facility] | gastroparesis (HCC) | | | | [facility] | [facility] [address] | (Primary Dx); | | | | for Health and | [place], [place] | Chronic diarrhea | | | | [facility], [facility] 2 | [address] | | | | | [place], [place] | [phone] | | | | | [address] | | | | | | [phone] | | | +--------+---------+ + + + [...] once the orders have been submitted to [facility]. Please do not hesitate to contact my office via phone or Medboxhart if you have any questions. Thank you! [...] is reported. SOCIAL HISTORY: Pt lives in [place], [place] with his mother. Not working. Smokes [...] Lashawn Joy PA-C [facility] [address] [facility] Mailcode: [place] [address] documented in this encounter Plan of Treatment +--------+---------+ + + + | Date | Type | Specialty | Care Team | Description | +--------+---------+ + + + | 01/24/ | Office | Surgery | Neri Steven MD | | | 2020 | Visit | | [address] | | | | | | [address] [place], | | | | | | [place] [address] | | | | | | [phone] | | | | | | | [...] [address] | [place], [place] | [phone] | | [place] | | | | [...] DIAMAN[address] Card Av | [place] | [phone] | | [place] | | | | [...] DIAMAN[address] Card [address] | [place], [place] | [phone] | | [place] | | | | [...] SW Card Av | [place], [place] | [phone] | | [place] | | | | [...] [facility] | [address] | [place] [address] | | | SERVICES, CORE | ZENA [...] | + + + + + | [facility] - AIRPORT - | [address] | [place] [address] | | | [place] | | | [...] | | | LABORATORY | | | K[place] | | | SERVICES, | | | [...] MDRD equation recommended by the National | [facility] | | Kidney Disease Education Program. Estimated [...] + + + + + | [facility] | [address] | [place] [address] | | | SERVICES, CORE | PARK [...] [facility] | [address] | [place] [address] | | | SERVICES, CORE | PARK [...]
--- OUTSIDE RECORDS SUMMARY | ~2020-01-14 | XMS | Encounter Summary ---
Demographics + + + | Address | [address] | | | [place] [address] | + + + | Home Phone [...] Samantha Ramos | ECON | [address] # | | | | | [place] | | | | | [address] | | + + + + + Care Team Providers + +------+ + | Care Mine Patrol Name | Role | Phone | + [...] | s associated | [address] | [place] for | | | | | with type [address] | [address] | Health and | | | | | diabetes | [place], [place] | Healing, | | | | | mellitus | [address] | Building [address] | | | | | ([facility]) | Phone: | [place], [place] | | | | | Procedures | [phone] | [address] | | | | | CONSULT TO | Fax: | Phone: | | | | | GI PROCEDURE | [phone] | [phone] | | | | | UNIT: EGD | | Fax: | | | | | | | [phone] | + +--------+ + + + + [...] 2019 | | Center at [facility] [address] | ANP [address] | EGD w/ pyloric | | | | [address] | [facility] [address] | botox) | | | | for Health and | [place], [place] | | | | | [facility] 2 | [address] | | | | | [place], [place] | [phone] | | | | | [address] | | | | | | [phone] | | | +--------+ + + + [...] | | | | | Lily [address] [place], | | | | | | [place] [address] | | | | | | [phone] | | | | | | | | +--------+---------+ + + + documented as of this encounter Visit Diagnoses + + | Diagnosis | + + | Diabetic gastroparesis associated with type 1 diabetes mellitus (HCC) - Primary | + + documented in this encounter"
--- OUTSIDE RECORDS SUMMARY | ~2020-01-14 | XMS | Encounter Summary ---
Demographics + + + | Address | [address] | | | [place] [address] | + + + | Home Phone [...] [place] | | | | | [address] | | + + + + + Care Team Providers + +------+ + | Care Wearing Apparel Shaker Name | Role | Phone | + +------+ + | Erich Yates | PCP | | + +------+ + Encounter Details +--------+ + + + + | Date | Type | Department | Care Team | Description | +--------+ + + + + | 06/20/ | Orders Only | [facility] | Winston Whitman MD | CKD (chronic kidney | | 2019 | | NEPHROLOGY [place] | [address] | disease), stage III | | | | [address] | [address] [place], [place] | ([facility]) (Primary Dx) | | | | [address] [facility], [place] | [address] | | | | | [address] | | | | | | [phone] | | | +--------+ + + + [...]
--- OUTSIDE RECORDS SUMMARY | ~2020-01-14 | XMS | Encounter Summary ---
Demographics + + + | Address | [address] | | | [place] [address] | + + + | Home Phone [...] Samantha Ramos | ECON | [address] # | | | | | [place] | | | | | [address] | | + + + + + Care Team Providers + +------+ + | Care Campground Caretaker Name | Role | Phone | + [...] | | 2019 | | Center at [facility] 3485 | PA-C [address] [facility] | results | | | | [facility] | [facility] | | | | | [facility] and | [place], [place] | | | | | [facility] 2 | [address] | | | | | [place], [place] | [phone] | | | | | [address] | | | | | | [phone] | | | +--------+ + + + [...] | | | | | | [place] [address] | | | | | | [phone] | | | | | | | | +--------+---------+ + + + documented as of this encounter Visit Diagnoses Not on filedocumented in this encounter"
--- OUTSIDE RECORDS SUMMARY | ~2020-01-14 | XMS | Encounter Summary ---
Demographics + + + | Address | [address] | | | [place] [address] | + + + | Home Phone [...] Samantha Ramos | ECON | [address] # | | | | | [place] | | | | | [address] | | + + + + + Care Team Providers + +------+ + | Care Accounts Receivable Clerk Name | Role | Phone | [...] Operative Report | | 2006 | | [place] [address] | | | | | Transcribed | [facility] | | | | | | for Health and | | | | | | Healing, Building 2 | | | | | | [place], [place] | | | | | | [address] | | | | | | [phone] | | | +--------+ + + + [...] | | | | | [address] [place], | | | | | | [place] [address] | | | | | | [phone] | | | | | | | [...] | 10/13/2006 12:00 AM PST | | [id number] | | [id number] NAHOMY Durbin [id number] | | | | Date: 10/13/2006 | | | | Attending Surgeon: Neri Mcgarry M.D., Ph.D. | | | | Registered Nurse Float Pool(s): Stefano Clements M.D. | | | | [...] Mcgarry M.D., Ph.D. | | | | [facility] / | | [id number] / [id number] / [id number] / [id number] | | | | | | | | | | | | Electronically signed by Neri Mcgarry 10-24-2006 04:46:26 PM | | | | | + + documented in this encounter Visit Diagnoses Not on filedocumented in this encounter"
--- OUTSIDE RECORDS SUMMARY | ~2020-01-14 | XMS | Encounter Summary ---
Demographics + + + | Address | [address] | | | [place] [address] | + + + | Home Phone [...] Samantha Ramos | ECON | [address] # | | | | | [place] | | | | | [address] | | + + + + + Care Team Providers + +------+ + | Care Capacity Management Specialist Name | Role | Phone | [...] | Only | [facility] [address] | CODING MACHINE OPERATOR [address] | | | | | [address] | [address] | | | | | Mailcode: [id number] | [place] [address] | | | | | [facility] | [phone] | | | | | [place], [place] | | | | | | [address] | | | | | | [phone] | | | +--------+ + + + [...] | | | | | | [place] [address] | | | | | | [phone] | | | | | | | [...]
--- OUTSIDE RECORDS SUMMARY | ~2020-01-14 | XMS | Encounter Summary ---
Demographics + + + | Address | [address] | | | [place] [address] | + + + | Home Phone [...] [place] | | | | | [address] | | + + + + + Care Team Providers + +------+ + | Care Health Club Manager Name | Role | Phone | + +------+ + | Erich Yates | PCP | | + +------+ + Encounter Details +--------+ + + + + | Date | Type | Department | Care Team | Description | +--------+ + + + + | 04/18/ | Orders Only | [facility] | Provider, | Chronic kidney | | 2019 | | SYSTEM GENERIC OP | MD [address] | disease, stage III | | | | CONVERSION [address] | [address] | (moderate) ([facility]); | | | | [address] [place], [place] | [place] [address] | Proteinuria; Type 1 | | | | [address] | | diabetes mellitus | | | | [phone] | | with diabetic | | | | | | nephropathy ([facility]); | | | | | | Chronic kidney | | | | | | disease, stage III | | | | | | (moderate) ([facility]) | +--------+ + + + + Social [...] | Indicated | | | (moderate) ([facility]) | 01/15/2021 | | | | | Proteinuria Type 1 | | | | | | diabetes mellitus | | | | | | with diabetic | | | | | | nephropathy ([facility]) | | | | | | Chronic kidney | | | | | | disease, stage III | | | | | | (moderate) ([facility]) | | + +------+--------+ + + | Protein/Creatinine | Lab | Routin | Chronic kidney | Expected: | | Ratio, Urine | | e | disease, stage III | 03/07/2019, Expires: | | | | | (moderate) ([facility]) | 01/15/2021 | | | | | Proteinuria Type 1 | | | | | | diabetes mellitus | | | | | | with diabetic | | | | | | nephropathy ([facility]) | | | | | | Chronic kidney | | | | | | disease, stage III | | | | | | (moderate) ([facility]) | | + +------+--------+ + + documented [...]
--- OUTSIDE RECORDS SUMMARY | ~2020-01-14 | XMS | Encounter Summary ---
Demographics + + + | Address | [address] | | | [place] [address] | + + + | Home Phone | | + + + | Preferred Language | Unknown | + + + | Marital Status | Single | + + + | Caodaism Affiliation | NON | + + + [...] Samantha Ramos | ECON | [address] # | | | | | [place] | | | | | [address] | | + + + + + Care Team Providers + +------+ + | Care Blow Machine Tender Starch Spraying Name | Role | Phone | + [...] | | | | | gastroparesi | [address] [facility] | | | | | | s associated | [address] | | | | | | with type 1 | Rd | | | | | | diabetes | [place], [place] | | | | | | mellitus | [address] | | | | | | ([facility]) | Phone: | | | | | | Procedures | [phone] | | | | | | NM GASTRIC | Fax: | | | | | | EMPTYING | [phone] | | | | | | STUDY [...] | | | | | diabetes | [place], [place] | floor | | | | | mellitus | [address] | [place], [place] | | | | | ([facility]) | Phone: | [address] | | | | | Procedures | [phone] | Phone: | | | | | CONSULT TO | Fax: | [phone] | | | | | GI PROCEDURE | [phone] | Fax: | | | | | UNIT: EGD | | [phone] | + +--------+ + + + + Encounter Details +--------+ + + + + | Date | Type | Department | Care Team | Description | +--------+ + + + + | 07/04/ | [facility]url Shaker | Digestive Health | Neri Steven MD | Diabetic | | 2019 | | Center at [facility] [address]85 | [address] | gastroparesis | | | | [facility] | [address] [place], | associated with type | | | | for Health and | [place] [address] | 1 diabetes mellitus | | | | Healing, Building 2 | [phone] | ([facility]) (Primary Dx) | | | | [place], [place] | | | | | | [address] | | | | | | [phone] | | | +--------+ + + + [...] | | | | | [address] [place], | | | | | | [place] [address] | | | | | | [phone] | | | | | | | [...]
--- OUTSIDE RECORDS SUMMARY | ~2020-01-14 | XMS | Encounter Summary ---
Demographics + + + | Address | [address] | | | [place] [address] | + + + | Home Phone [...] Samantha Ramos | ECON | [address] # | | | | | [place] | | | | | [address] | | + + + + + Care Team Providers + +------+ + | Care Desizing Machine Operator Name | Role | Phone | + +------+ + | Erich Yates PA-C | PCP | | + +------+ + Encounter Details +--------+ + + + + | Date | Type | Department | Care Team | Description | +--------+ + + + + | 07/06/ | Transcribe | [facility] | Transcribe | | | 2019 | Orders | [address] | Encounter, Provider, | | | | | [address] [place] | [address] | | | | | for Health and | [place] [address] | | | | | Healing, Building 2 | | | | | | [place], [place] | | | | | | [address] | | | | | | [phone] | | | +--------+ + + + [...] 2020 | Visit | | [address] | | | | | | [address] [place], | | | | | | [place] [address] | | | | | | [phone] | | | | | | | [...]
--- OUTSIDE RECORDS SUMMARY | ~2020-01-14 | XMS | Encounter Summary ---
Demographics + + + | Address | [address] | | | [place] [address] | + + + | Home Phone [...] Samantha Ramos | ECON | [address] # | | | | | [place] | | | | | [address] | | + + + + + Care Team Providers + +------+ + | Care Property Appraiser Name | Role | Phone | [...] | | | | | gastroparesi | [address] [employer] | | | | | | s associated | [address] | | | | | | with type 1 | Rd | | | | | | diabetes | [place], [place] | | | | | | mellitus | [address] | | | | | | ([facility]) | Phone: | | | | | | Procedures | [phone] | | | | | | NM GASTRIC | Fax: | | | | | | EMPTYING | [phone] | | | | | | STUDY [...] | | | | | diabetes | [place], [place] | floor | | | | | mellitus | [address] | [place], [place] | | | | | ([facility]) | Phone: | [address] | | | | | Procedures | [phone] | Phone: | | | | | CONSULT TO | Fax: | [phone] | | | | | GI PROCEDURE | [phone] | Fax: | | | | | UNIT: EGD | | [phone] | + +--------+ + + + + Encounter Details +--------+ + + + + | Date | Type | Department | Care Team | Description | +--------+ + + + + | 07/04/ | Child And Family Therapist | Digestive Health | Neri Steven MD | Diabetic | | 2019 | | Center at [facility] [address] | [address] | gastroparesis | | | | [facility] | [address] [place], | associated with type | | | | for Health and | [place] [address] | 1 diabetes mellitus | | | | Healing, Building 2 | [phone] | ([facility]) (Primary Dx) | | | | [place], [place] | | | | | | [address] | | | | | | [phone] | | | +--------+ + + + [...] | | | | | [address] [place], | | | | | | [place] [address] | | | | | | [phone] | | | | | | | [...]
--- OUTSIDE RECORDS SUMMARY | ~2020-01-14 | XMS | Encounter Summary ---
Demographics + + + | Address | [address] | | | [place] [address] | + + + | Home Phone [...] Samantha Ramos | ECON | [address] # | | | | | [place] | | | | | [address] | | + + + + + Care Team Providers + +------+ + | Care Sand Conditioner Name | Role | Phone | + [...] bone and | [address] | Rd [place], | | | | | articular | [place], [place] | [place] | | | | | cartilage | [address] | [address] | | | | | Loose body | Phone: | Phone: | | | | | in upper arm | [phone] | [phone] | | | | | joint | Fax: | Fax: | | | | | Procedures | [phone] | [phone] | | | | | CONSULT TO | | | | | | | [place] AL | | | | | | | EXPLORE | | | | | | | ELBOW JOINT | | | | | | | AL BONE | | | | | | [...] | | | | Mailcode: [id number] | [place], [place] | Uncertain Behavior | | | | [facility] | [address] | of Bone and | | | | [place], [place] | [phone] | Articular Cartilage | | | | [address] | | | | | | [phone] | | | +--------+---------+ + + + [...] Codeine Social history: The patient lives in [place], [place]. The patient smokes half a pack [...] | | | | | [address] [place], | | | | | | [place] [address] | | | | | | [phone] | | | | | | | [...]
--- OUTSIDE RECORDS SUMMARY | ~2020-01-14 | XMS | Encounter Summary ---
Demographics + + + | Address | [address] | | | [place] [address] | + + + | Home Phone [...] [place] | | | | | [address] | | + + + + + Care Team Providers + +------+ + | Care Assistant Director Of Public Works Name | Role | Phone | + +------+ + | Erich Yates | PCP | | + +------+ + Encounter Details +--------+ + + + + | Date | Type | Department | Care Team | Description | +--------+ + + + + | 09/13/ | Orders Only | [facility] | Conversion | | | 2017 | | NEPHROLOGY [place] | Transaction, | | | | | [address] | Provider Unknown | | | | | [address] [place], [place] | | | | | | [address] | (Fax) | | | | | [phone] | | | +--------+ + + + [...] - 1.030 | EXTERNAL | | | [place] | | | LAB | | + [...] - 1.030 | EXTERNAL | | | [place] | | | LAB | | + [...]
--- OUTSIDE RECORDS SUMMARY | ~2020-01-14 | XMS | Encounter Summary ---
Demographics + + + | Address | [address] | | | [place] [address] | + + + | Home Phone [...] Samantha Ramos | ECON | [address] # | | | | | [place] | | | | | [address] | | + + + + + Care Team Providers + +------+ + | Care Scrap Hooker Name | Role | Phone | + [...] | 2019 | on | Center at [facility] [address]85 | PA-C [address] | (multiple lab | | | | [facility] | [facility] | results) | | | | for Health and | [place], [place] | | | | | [facility], [facility] 2 | [address] | | | | | [place], [place] | [phone] | | | | | [address] | | | | | | [phone] | | | +--------+ + + + [...] | | | | | [address] [place], | | | | | | [place] [address] | | | | | | [phone] | | | | | | | [...] [address] | [place] | [phone] | | [place] | | | | [...] [address] | [place], [place] | [phone] | | [place] | | | | [...] [address] | [place] | [phone] | | EUN | | | | [...] [address] | [place] | [phone] | | [place] | | | | + + + + + documented in this encounter Visit Diagnoses + + | Diagnosis | + + | Chronic diarrhea Diarrhea | + + documented in this encounter"
--- OUTSIDE RECORDS SUMMARY | ~2020-01-14 | XMS | Encounter Summary ---
Demographics + + + | Address | [address] | | | [place] [address] | + + + | Home Phone | | + + + | Preferred Language | Unknown | + + + | Marital Status | Single | + + + | Congregational Affiliation | Unknown | + + + | Race | Unknown | + + + | Ethnic Group | Unknown | + + + Author + + + | Author | [facility] | | | and [place] | + + + | Organization | [facility] | | [...] [place] | | | | | [address] | | + + + + + Care Team Providers + +------+ + | Care Quality Associate Name | Role | Phone | + +------+ + | Erich Yates | PCP | | + +------+ + Encounter Details +--------+ + + + + | Date | Type | Department | Care Team | Description | +--------+ + + + + | 03/16/ | Orders Only | [facility] | Conversion | | | 2018 | | NEPHROLOGY [place] | Transaction, | | | | | [address] | Provider Unknown | | | | | [address] [place], [place] | | | | | | [address] | (Fax) | | | | | [phone] | | | +--------+ + + + [...]
--- OUTSIDE RECORDS SUMMARY | ~2020-01-14 | XMS | Encounter Summary ---
Demographics + + + | Address | [address] | | | [place] [address] | + + + | Home Phone [...] Samantha Ramos | ECON | [address] # | | | | | [place] | | | | | [address] | | + + + + + Care Team Providers + +------+ + | Care Director Reactor Projects Name | Role | Phone | + [...] | s associated | [address] | [place] for | | | | | with type [address] | Health and | | | | | diabetes | [place], [place] | Healing, | | | | | mellitus | [address] | [address] | | | | | ([facility]) | Phone: | [place], [place] | | | | | Procedures | [phone] | [address] | | | | | CONSULT TO | Fax: | Phone: | | | | | GI PROCEDURE | [phone] | [phone] | | | | | UNIT: EGD | | Fax: | | | | | | | [phone] | + +--------+ + + + + [...] 2019 | | Center at [facility] [address]85 | ANP [address] | EGD w/ pyloric | | | | [address] | [facility] [address] | botox) | | | | for Health and | [place], [place] | | | | | [facility], [facility] 2 | [address] | | | | | [place], [place] | [phone] | | | | | [address] | | | | | | [phone] | | | +--------+ + + + [...] | | | | | [address] [place], | | | | | | [place] [address] | | | | | | [phone] | | | | | | | | +--------+---------+ + + + documented as of this encounter Visit Diagnoses + + | Diagnosis | + + | Diabetic gastroparesis associated with type 1 diabetes mellitus (HCC) - Primary | + + documented in this encounter"
--- OUTSIDE RECORDS SUMMARY | ~2020-01-14 | XMS | Encounter Summary ---
Demographics + + + | Address | [address] | | | [place] [address] | + + + | Home Phone [...] Samantha Ramos | ECON | [address] # | | | | | [place], [place] | | | | | [address] | | + + + + + Care Team Providers + +------+ + | Care Law Enforcement Officer Name | Role | Phone | [...] as of this encounter Discharge Summaries Interface, International Project Engineer In - 04/08/2006 3:[address] [address] [facility] MEDICAL SUMMARY OF HOSPITALIZATION Med Rec [...] initially presented to the emergency department in [place] with four to five days of flu-like [...] insulin drip. He was transferred to the [facility] Pediatric Intensive Care Unit. HOSPITAL [...] diabetes education from the endocrinology team. A console assembler also worked closely with the family in educating on the [place] [employer] diets. On the day of [...] Lindsey M.D. Tereso Morocho M.D. TC:[id number] cc: [id number] signed by Interface, International Project Engineer In at 04/08/2006 3:07 AM [facility] this [facility] Plan of Treatment +--------+---------+ + + + | Date | Type | Specialty | Care Team | Description | +--------+---------+ + + + | 01/24/ | Office | Surgery | Neri Steven MD | | | 2020 | Visit | | [address] | | | | | | [place], | | | | | | [place] [address] | | | | | | [phone] | | | | | | | | +--------+---------+ + + + documented as of this encounter Visit Diagnoses Not on filedocumented in this encounter"
--- OUTSIDE RECORDS SUMMARY | ~2020-01-14 | XMS | Encounter Summary ---
Demographics + + + | Address | [address] | | | [place] [address] | + + + | Home Phone [...] Samantha Ramos | ECON | [address] # | | | | | [place] | | | | | [address] | | + + + + + Care Team Providers + +------+ + | Care Clinical Documentation Clerk Name | Role | Phone | [...] Operative Report | | 2006 | | [place] [address] [address] | | | | | Transcribed | [facility] | | | | | | for Health and | | | | | | Healing, Building 2 | | | | | | [place], [place] | | | | | | [address] | | | | | | [phone] | | | +--------+ + + + [...] | | | | | [place], | | | | | | [place] [address] | | | | | | [phone] | | | | | | | [...] | 10/13/2006 12:00 AM PST | | [id number] | | [id number] NAHOMY Durbin [id number] | | | | Date: 10/13/2006 | | | | Attending Surgeon: Neri Mcgarry M.D., Ph.D. | | | | Cashier Associate(s): Stefano Clements M.D. | | | | [...] Mcgarry M.D., Ph.D. | | | | [facility] / | | [id number] / [id number] / [phone] / [phone] | | | | | | | | | | | | Electronically signed by Neri Mcgarry 10-24-2006 04:46:26 PM | | | | | + + documented in this encounter Visit Diagnoses Not on filedocumented in this encounter"
--- OUTSIDE RECORDS SUMMARY | ~2020-01-14 | XMS | Encounter Summary ---
Demographics + + + | Address | [address] | | | [place] [address] | + + + | Home Phone [...] Samantha Ramos | ECON | [address] # | | | | | [place] | | | | | [address] | | + + + + + Care Team Providers + +------+ + | Care Basket Operator Name | Role | Phone | [...] | | | | | Tika | [address] | | | | | [facility] | [place] [address] | | | | | [address] | | | | | | [place] | | | | | | [place], [place] | | | | | | [address] | | | | | | [phone] | | | +--------+ + + + [...] | 01/24/ | Office | Surgery | Nrei Steven MD | | | 2020 | Visit | | [address] | | | | | | [place], | | | | | | [place] [address] | | | | | | [phone] | | | | | | | | +--------+---------+ + + + documented as of this encounter Visit Diagnoses Not on filedocumented in this encounter"
--- OUTSIDE RECORDS SUMMARY | ~2020-01-14 | XMS | Encounter Summary ---
Demographics + + + | Address | [address] | | | [place] [address] | + + + | Home Phone [...] [place] | | | | | [address] | | + + + + + Care Team Providers + +------+ + | Care Tool Machine Set Up Operator Name | Role | Phone | [...] | 03/13/ | Telephone | [facility] [place] | [facility], | Referral | | 2019 | | GASTROENTEROLOGY | DANA Perry [address] | | | | | [address] | [place], [address] | | | | | [address] [place], [place] | [place], [place] | | | | | [address] | [address] | | | | | [phone] | | | +--------+ + + + [...]
--- OUTSIDE RECORDS SUMMARY | ~2020-01-14 | XMS | Encounter Summary ---
Demographics + + + | Address | [address] | | | [place] [address] | + + + | Home Phone [...] Samantha Ramos | ECON | [address] # | | | | | [place] | | | | | [address] | | + + + + + Care Team Providers + +------+ + | Care Clinical Director Name | Role | Phone | [...] | Only | [address] [address] | GRINDER DRESSER [address] | | | | | [address] | [address] | | | | | Mailcode: PV430 | [place] [address] | | | | | [facility] | [phone] | | | | | [place], [place] | | | | | | [address] | | | | | | [phone] | | | +--------+ + + + [...] | | | | | [place] [address] [place], | | | | | | [place] [address] | | | | | | [phone] | | | | | | | [...]
--- OUTSIDE RECORDS SUMMARY | ~2020-01-14 | XMS | Encounter Summary ---
Demographics + + + | Address | [address] | | | [place] [address] | + + + | Home Phone [...] Samantha Ramos | ECON | [address] # | | | | | [place] | | | | | [address] | | + + + + + Care Team Providers + +------+ + | Care Farm Mechanic Apprentice Name | Role | Phone | [...] [address] | | | | | [place], [place] | [place], [place] | | | | | [address] | [address] | | | | | [phone] | [phone] | | | | | | | [...] | | | | | [address] [place], | | | | | | [place] [address] | | | | | | [phone] | | | | | | | [...] | | | | | URINE-CARLOS | [facility] | | | | | M [...] | + + + + + | [facility] | [address] | [place] [address] | | | LABORATORY | | | | + + + + + documented in this encounter Visit Diagnoses Not on filedocumented in this encounter"
--- OUTSIDE RECORDS SUMMARY | ~2020-01-14 | XMS | Encounter Summary ---
Demographics + + + | Address | [address] | | | [place] [address] | + + + | Home Phone [...] Samantha Ramos | ECON | [address] # | | | | | [place] | | | | | [address] | | + + + + + Care Team Providers + +------+ + | Care Material Control Supervisor Name | Role | Phone | + +------+ + | Erich Yates PA-C | PCP | | + +------+ + Encounter Details +--------+ + + + + | Date | Type | Department | Care Team | Description | +--------+ + + + + | 10/11/ | Transcribe | [facility] | Transcribe | | | 2020 | Orders | [facility] [address] | Encounter, Provider, | | | | | [place] | [address] | | | | | for Health and | [place] [address] | | | | | Healing, Building 2 | | | | | | [place], [place] | | | | | | [address] | | | | | | [phone] | | | +--------+ + + + [...] | | | | | Lily [place], | | | | | | [place] [address] | | | | | | [phone] | | | | | | | [...]
--- OUTSIDE RECORDS SUMMARY | ~2020-01-14 | XMS | Encounter Summary ---
Demographics + + + | Address | [address] | | | [place] [address] | + + + | Home Phone [...] | Samantha Ramos | ECON | [address] # | | | | | [place] | | | | | [address] | | + + + + + Care Team Providers + +------+ + | Care Smoking Tobacco Packer Hand Name | Role | Phone | + +------+ + | Neri Mojica MD | PCP | | + +------+ + Encounter Details +--------+ + + + + | Date | Type | Department | Care Team | Description | +--------+ + + + + | 08/24/ | Document-Sc | UNKNOWN DEPARTMENT | Other, Faculty | | | 2012 | anned | [address] [facility] | [phone] | | | | | [address] | | | | | | [place], [place] | | | | | | [address] | | | +--------+ + + + [...] | | | | | [place] [address] [place], | | | | | | [place] [address] | | | | | | [phone] | | | | | | | | +--------+---------+ + + + documented as of this encounter Visit Diagnoses Not on filedocumented in this encounter"
--- OUTSIDE RECORDS SUMMARY | ~2020-01-14 | XMS | Encounter Summary ---
Demographics + + + | Address | [address] | | | [place] [address] | + + + | Home Phone [...] Samantha Ramos | ECON | [address] # | | | | | [place] | | | | | [address] | | + + + + + Care Team Providers + +------+ + | Care Heat Pump Installer Name | Role | Phone | [...] [address] | | | | | [place], [place] | [place], [place] | | | | | [address] | [address] | | | | | [phone] | [phone] | | | | | | | [...] | | | | | [address] [place], | | | | | | [place] [address] | | | | | | [phone] | | | | | | | [...] | | | | | | [facility] | | | | | | Laboratories. | | | | + + + + + + + + | Specimen | + + | | + + + + + + + | Performing | Address | City/State/Zipcode | Phone Number | | Organization | | | | + + + + + | [facility] | [address] | [place] [address] | | | LABORATORY | | | [...] | uIU/ml | | | | | [facility] | | | | | | Laboratories. | | | | + + + + + + + + | Specimen | + + | | + + + + + + + | Performing | Address | City/State/Zipcode | Phone Number | | Organization | | | | + + + + + | [facility] | [address] | [place] [address] | | | LABORATORY | | | | + + + + + documented in this encounter Visit Diagnoses Not on filedocumented in this encounter"
--- OUTSIDE RECORDS SUMMARY | ~2020-01-14 | XMS | Encounter Summary ---
Demographics + + + | Address | [address] | | | [place] [address] | + + + | Home Phone | | + + + | Preferred Language | Unknown | + + + | Marital Status | Single | + + + | Mormonism Affiliation | Unknown | + + + | Race | Unknown | + + + | Ethnic Group | Unknown | + + + Author + + + | Author | [facility] | | | and [place] | + + + | Organization | [facility] | [...] [place] | | | | | [address] | | + + + + + Care Team Providers + +------+ + | Care Money Examiner Name | Role | Phone | [...] | [address] | [place], [place] [address] | (Primary Dx); Weight | | | | [address] [place], [place] | [place], [place] | loss; Malnutrition, | | | | [address] | [address] | unspecified type | | | | [phone] | | ([facility]); 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
--- OUTSIDE RECORDS SUMMARY | ~2020-01-14 | XMS | Encounter Summary ---
Demographics + + + | Address | [address] | | | [place] [address] | + + + | Home Phone [...] + + + | Author | [facility] | | | and [place] | + + + | Organization | [facility] | | | and [place] | + + + | Address | Unknown | + + + | Phone | Unavailable | + + + Support + + + + + | Name | Relationship | Address | Phone | + + + + + | Gia Ramos | ECON | [address] | | | | | [address] [place] | | | | | [address] | | + + + + + Care Team Providers + +------+ + | Care Family Day Care Provider Name | Role | Phone | + +------+ + | Erich Yates | PCP | | + +------+ + Encounter Details +--------+ + + + + | Date | Type | Department | Care Team | Description | +--------+ + + + + | 03/16/ | Orders Only | [facility] | Conversion | | | 2018 | | NEPHROLOGY [place] | Transaction, | | | | | [address] | Provider Unknown | | | | | [address] [place], [place] | | | | | | [address] | (Fax) | | | | | [phone] | | | +--------+ + + + [...]
--- OUTSIDE RECORDS SUMMARY | ~2020-01-14 | XMS | Clinical Summary ---
Demographics + + + | Address | [address] | | | [place] [address] | + + + | Home Phone [...] | | | | | [address] | | | | | [address] | | + + + + + Care Team Providers + +------+ + | Care Partition Assembler Name | Role | Phone | [...] Right: | JOYCE | | 07/14/ | [id number] | | - [id number]: | | | [employer] | | 2020 | / | | Qty: 1 on 09/19/2018 by | | Ureter | - JOCYE | | | /[id number] | | Tc Mora MD at | | | | | | 43 | | [facility] | | | | | | | | [facility] | | | | | [...] ST. | [address] | [place] | [phone] | | [facility] | | [address] | | | - LABORATORY | | [...] + | [facility] | [address] | [place] | [phone] | | [facility] | | [address] | | | - LABORATORY | | [...] + + | Performing | Address | City/State/[facility] Cent[facility] | Phone Number | | Organization | | | | + + + + + | [facility] | [address] | [place] | [phone] | | [facility] | | [address] | | | - LABORATORY | | [...] 2.67 (H) | 0.70 - 1.30 | [facility] | | | | | mg/dL | [facility] | | | | | | MEDICAL | | | | | | CENTER - | | | | | | LABORATORY | | + + + + + + | eGFR if not | 28 (L)Comment: | >=60 | [facility] | | | | GLOMERULAR FILTRATION | mL/min/1.73m2 | [facility] | | | [place] | RATE,ESTIMATED | | MEDICAL | | | | mL/min/1.13p8Svcp than | | CENTER - | | [...] + | [facility] | [address] | [place] | [phone] | | [facility] | | [address] | | | - LABORATORY | | [...] | mL/min/1.73m2 | [facility] | | | [place] | RATE,ESTIMATED | | MEDICAL | | | | mL/min/1.05i1Lzsn than | | CENTER - | | [...] [address] | [place] | [phone] | | [facility] | | [address] | | | - LABORATORY | | [...] ST. | [address] | [place] | [phone] | | [facility] | | [address] | | | - LABORATORY | | [...] + | [facility] | [address] | [place] | [phone] | | [facility] | | [address] | | | - LABORATORY | | [...] | mL/min/1.73m2 | [facility] | | | [place] | RATE,ESTIMATED | | MEDICAL | | | | mL/min/1.95m3Ewbw than | | CENTER - | | [...] 3.2 - 4.8 g/dL | [facility] | | | | | | [facility] [...] [address] | [place] | [phone] | | [facility] | | [address] | | | - LABORATORY | | [...] | | Screen, | | | [facility] | | | Urine | | | [...] + | [facility] | [address] | [place] | [phone] | | [facility] | | [address] | | | - LABORATORY | | [...] | | | report was sent by [facility] with no significant discrepancy on | | [...] preliminary report was | | sent by [facility] with no significant discrepancyon 01/06/2020 4:25 PM.Dictated [...] | |A preliminary report was sent by [facility] with no significant discrepancy | |on 01/06/2020 [...] | Reticulocyt | | M/uL | [facility] | | | e Count | | | MEDICAL | | | | | | CENTER - | | | | | | LABORATORY | | + + + + + + | Immature | 15.1Comment: Values | 2.3 - 15.9 % | [facility] | | | Reticulocyt | above normal range | | . [facility] | | | e Fraction | indicate [...] [address] | [place] | [phone] | | [facility] | | [address] | | | - LABORATORY | | [...] + | [facility] | [address] | [place] | [phone] | | [facility] | | [address] | | | - LABORATORY | | [...] + | [facility] | [address] | [place] | [phone] | | [facility] | | [address] | | | - LABORATORY | | [...] St | [place] | | | [facility] | | [address] | | | - BLOOD BANK | [address] | [place] | [phone] | | [facility] | | [address] | | | - LABORATORY | | | | + + + + + Ferritin (01/06/2020 8:04 AM PDT) + +---------+ + + + | Component | Value | Ref Range | Performed | Pathologist | | | | | At | Signature | + +---------+ + + + | FERRITIN | 480 (H) | 11 - 307 ng/mL | [facility] | | | | | [...] + | [facility] | [address] | [place] | [phone] | | [facility] | | [address] | | | - LABORATORY | | [...] [address] | [place] | [phone] | | [facility] | | [address] | | | - LABORATORY | | [...] + | [facility] | [address] | [place] | [phone] | | [facility] | | [address] | | | - LABORATORY | | [...] - 1.030 | [facility] | | | [place] | | | [facility] | | [...] [address] | [place] | [phone] | | [facility] | | [address] | | | - LABORATORY | | [...] + | Performed at: 01 - [facility] [place] [address], | REFERENCE LAB | | [place], [place] [id number] Surgery Technician: Jerome Agudelo MD, Phone: | [facility] | | [phone] | | + + + + + + + + | Performing | Address | City/State/Zipcode | Phone Number | | Organization | | | | + + + + + | REFERENCE LAB | [address] [facility] [address] | [place], [place] | [phone] | | [place] [place] | [facility] | [address] | | + + + + + [...] [address] | [place] | [phone] | | [facility] | | [address] | | | - LABORATORY | | [...] | | Urine, | | | [facility] | | | Random | | | [...] [address] | [place] | [phone] | | [facility] | | [address] | | | - LABORATORY | | [...] [address] | [place] | [phone] | | [facility] | | [address] | | | - LABORATORY | | [...] + | [facility] | [address] | [place] | [phone] | | [facility] | | [address] | | | - LABORATORY | | [...] ST. | [address] | [place] | [phone] | | [facility] | | [address] | | | - LABORATORY | | [...] | | | | CRISTINE HUDDLESTON MD ([id number]) | | | | | | on [...] [address] | [place] | [phone] | | [facility] | | [address] | | | - LABORATORY | | [...] | | | | | | [employer] | | | | | [...] [address] | [place] | [phone] | | [facility] | | [address] | | | - LABORATORY | | [...] [address] | [place] | [phone] | | [facility] | | [address] | | | - LABORATORY | | [...] | | chromogenic agar method. | | [facility] | | | | | | [...] [address] | [place] | [phone] | | [facility] | | [address] | | | - LABORATORY | | [...] [address] | [place] | [phone] | | [facility] | | [address] | | | - LABORATORY | | [...] | [employer] | MODA | [id number] | | [phone] | | Medica | | MEDICAID HMO | HEALTH | | 018-Pr | 1 | | id | | | MDCD | | esent | | | | | | [place] | | | | | | + +--------+ +--------+ +---------+--------+ | [employer] | MOD[employer] | [id number] | | [phone] | | Medica | | MEDICAID HMO [...] [place] | | | 1 (Home) | [address] | + +--------+ +--------+ + + | Brooks Marquez | Person | Self | [birth year] | [address] | | | al/Fam | | 1990 | [id number] | [address] [place] | | | [place] | | | 1 (Home) | [address] | + +--------+ +--------+ + + Advance Directives + + + + + | Type | Date Recorded | Patient | Explanation | | | | Dramatic Coach | | + + + + + | Power of | | | | | Vendor Specialist | | | | + + [...]
--- OUTSIDE RECORDS SUMMARY | ~2020-01-14 | XMS | Encounter Summary ---
Demographics + + + | Address | [address] | | | [place] [address] | + + + | Home Phone [...] Samantha Ramos | ECON | [address] # | | | | | [place] | | | | | [address] | | + + + + + Care Team Providers + +------+ + | Care Teacher Citizenship Name | Role | Phone | + [...] | | Endocrinology at | MD [address] [facility] | | | | | [place] | [address] | | | | | [facility] | [place], [place] | | | | | [address] | [address] | | | | | [place] | [phone] | | | | | [place], [place] | | | | | | [address] | | | | | | [phone] | | | +--------+--------+ + + + [...] | | | | | [place], | | | | | | [place] [address] | | | | | | [phone] | | | | | | | | +--------+---------+ + + + documented as of this encounter Visit Diagnoses Not on filedocumented in this encounter"
--- OUTSIDE RECORDS SUMMARY | ~2020-01-14 | XMS | Encounter Summary ---
Demographics + + + | Address | [address] | | | [place] [address] | + + + | Home Phone [...] Samantha Ramos | ECON | [address] # | | | | | [place] | | | | | [address] | | + + + + + Care Team Providers + +------+ + | Care Policy Analyst Name | Role | Phone | [...] | | | type) | CLINIC | [facility] | | | | | diabetes | [address] | Rd | | | | | mellitus | BUILDING | [place], [place] | | | | | without | [address] | [address] | | | | | mention of | [address] | Phone: | | | | | complication | [place], | [phone] | | | | | , not stated | [place] [address] | Fax: | | | | | as | Phone: | [phone] | | | | | uncontrolled | [phone] | | | | | | | Fax: | | | | | | | [phone] | | +--------+ + + + + [...] (Primary Dx) | | | | Center [facility] | [facility] | | | | | [address] | [place], [place] | | | | | [address] | [address] | | | | | Physician's | [phone] | | | | | Pavilion[address] | | | | | | [place], [place] | | | | | | [address] | | | | | | [phone] | | | +--------+---------+ + + + [...] week a nd fax to me on [phone]- or call/email earlier if blood sugars running consistently low . My email address is [email or web address] 2. Take 1 unit insulin for [...] 1 week and fax to me on [phone]- or call/email earlier if blood sarabia gars running consistently low. My email address is [email or web address] 2. Take 1 unit insulin for [...] | | | | | [place], | | | | | | [place] [address] | | | | | | [phone] | | | | | | | [...] + | [facility] | [address] | [place], [place] | | | [facility] POINT OF CARE | [address] | [address] | | | TESTS | | | | + + + + + | [facility] | [address] | [place], [place] | | | TESTS | [facility] | [address] | | + + + + + documented in this encounter Visit Diagnoses + + | Diagnosis | + + | Type I (juvenile type) diabetes mellitus without mention of complication, not stated | | as uncontrolled - Primary | + + documented in this encounter
--- OUTSIDE RECORDS SUMMARY | ~2020-01-14 | XMS | Encounter Summary ---
Demographics + + + | Address | [address] | | | [place] [address] | + + + | Home Phone [...] Samantha Ramos | ECON | [address] # | | | | | [place] | | | | | [address] | | + + + + + Care Team Providers + +------+ + | Care Slide Fastener Chain Assembler Name | Role | Phone | [...] | Only | [facility] [address] | LUMBER HANDLER [address] | | | | | [address] | [address] | | | | | Mailcode: PV430 | [place] [address] | | | | | Phys[facility] Pavilion | [phone] | | | | | [place], [place] | | | | | | [address] | | | | | | [phone] | | | +--------+ + + + [...] | | | | | [place], | | | | | | [place] [address] | | | | | | [phone] | | | | | | | [...]
--- OUTSIDE RECORDS SUMMARY | ~2020-01-14 | XMS | Encounter Summary ---
Demographics + + + | Address | [address] | | | [place] [address] | + + + | Home Phone [...] [place] | | | | | [address] | | + + + + + Care Team Providers + +------+ + | Care Piper Helper Name | Role | Phone | + +------+ + | Erich Yates | PCP | | + +------+ + Encounter Details +--------+ + + + + | Date | Type | Department | Care Team | Description | +--------+ + + + + | 05/15/ | Orders Only | [facility] | Conversion | | | 2017 | | NEPHROLOGY [place] | Transaction, | | | | | [address] | Provider Unknown | | | | | [address] [place], [place] | | | | | | [address] | (Fax) | | | | | [phone] | | | +--------+ + + + [...] - 1.030 | EXTERNAL | | | [place] | | | LAB | | + [...]
--- OUTSIDE RECORDS SUMMARY | ~2020-01-14 | XMS | Encounter Summary ---
Demographics + + + | Address | [address] | | | [place] [address] | + + + | Home Phone [...] Samantha Ramos | ECON | [address] # | | | | | [place] | | | | | [address] | | + + + + + Care Team Providers + +------+ + | [employer] Name | Role | Phone | [...] | | | | | diabetes | [place], [place] | floor | | | | | mellitus | [address] | [place], [place] | | | | | (HCC) | Phone: | [phone] | | | | | Procedures | [phone] | Phone: | | | | | CONSULT TO | Fax: | [phone] | | | | | ENDOSCOPY | [phone] | Fax: | | | | | UNIT: EGD | | [phone] | + +--------+ + + + + [...] | | 2020 | | Center at [facility] [address] | [address] | | | | | [facility] | [place] [address] [place], | | | | | [facility] and | [place] [address] | | | | | [place] [address] | [phone] | | | | | [place], [place] | | | | | | [address] | | | | | | [phone] | | | +--------+ + + + [...] | | | | | [place], | | | | | | [place] [address] | | | | | | [phone] | | | | | | | | +--------+---------+ + + + documented as of this encounter Visit Diagnoses + + | Diagnosis | + + | Diabetic gastroparesis associated with type 1 diabetes mellitus (HCC) - Primary | + + documented in this encounter"
--- OUTSIDE RECORDS SUMMARY | ~2020-01-14 | XMS | Encounter Summary ---
Demographics + + + | Address | [address] | | | [place] [address] | + + + | Home Phone [...] Samantha Ramos | ECON | [address] # | | | | | [place] | | | | | [address] | | + + + + + Care Team Providers + +------+ + | Care Biology Intern Name | Role | Phone | [...] | | [place], 3rd floor | | ([facility]LY [facility]) | | | | [place], [place] | | | | | | [address] | | | | | | [phone] | | | +--------+------+ + + + [...] | | | | | [place] [address] [place], | | | | | | [place] [address] | | | | | | [phone] | | | | | | | [...] | | | LABORATORY | | | BULGARIAN | | | SERVICES, | | | [...] + + | [facility] | [address] [facility] | [place] [address] | | | ZOEY DODD | PARK [...]
--- OUTSIDE RECORDS SUMMARY | ~2020-01-14 | XMS | Encounter Summary ---
Demographics + + + | Address | [address] | | | [place] [address] | + + + | Home Phone [...] Samantha Ramos | ECON | [address] # | | | | | [place] | | | | | [address] | | + + + + + Care Team Providers + +------+ + | Care Civil Clerk Name | Role | Phone | + +------+ + | Erich Yates PA-C | PCP | | + +------+ + Encounter Details +--------+ + + + + | Date | Type | Department | Care Team | Description | +--------+ + + + + | 11/28/ | Anesthesia | [facility] at [facility] | Beth Nash, | | | 2019 | Event | [facility] [address] | RN [address] | | | | | [facility] | [facility] | | | | | for Health and | [place], [place] | | | | | [facility], Building 2 | [address] | | | | | [place], [place] | | | | | | [address] | | | | | | [phone] | | | +--------+ + + + [...] | | | | | Lily [address] [place], | | | | | | [place] [address] | | | | | | [phone] | | | | | | | | +--------+---------+ + + + documented as of this encounter Visit Diagnoses Not on filedocumented in this encounter"
--- OUTSIDE RECORDS SUMMARY | ~2020-01-14 | XMS | Encounter Summary ---
Demographics + + + | Address | [address] | | | [place] [address] | + + + | Home Phone [...] + + + | Author | [facility] | | | and [place] | + + + | Organization | [facility] | | | and [...] [place] | | | | | [address] | | + + + + + Care Team Providers + +------+ + | Care Towel Stretcher Name | Role | Phone | + [...] | | | [address] | [place] [address] | | | | | [place] [address] | | | | | | [phone] | | | +--------+ + + + [...]
--- OUTSIDE RECORDS SUMMARY | ~2020-01-14 | XMS | Encounter Summary ---
Demographics + + + | Address | [address] | | | [place] [address] | + + + | Home Phone [...] + + + | Author | [facility] | | | and [place] | + + + | Organization | [facility] | | | and [...] [place] | | | | | [address] | | + + + + + Care Team Providers + +------+ + | Care Cup Trimming Machine Operator Name | Role | Phone | + +------+ + | Erich Yates | PCP | | + +------+ + Encounter Details +--------+ + + + + | Date | Type | Department | Care Team | Description | +--------+ + + + + | 05/15/ | Orders Only | [facility] | Conversion | | | 2017 | | NEPHROLOGY [place] | Transaction, | | | | | [address] | Provider Unknown | | | | | [address] [place], [place] | | | | | | [address] | (Fax) | | | | | [phone] | | | +--------+ + + + [...] - 1.030 | EXTERNAL | | | [place] | | | LAB | | + [...]
--- OUTSIDE RECORDS SUMMARY | ~2020-01-14 | XMS | Encounter Summary ---
Demographics + + + | Address | [address] | | | [place] [address] | + + + | Home Phone [...] Samantha Ramos | ECON | [address] # | | | | | [place] | | | | | [address] | | + + + + + Care Team Providers + +------+ + | Care Delinquency Prevention Social Worker Name | Role | Phone | [...] Center at [facility] [address] | [address] | | | | | DIAMANTE Gallagher [facility] | [address] [place], | | | | | [facility] and | [place] [address] | | | | | [facility] 2 | [phone] | | | | | [place], [place] | | | | | | [address] | | | | | | [phone] | | | +--------+ + + + [...] | | | | | [address] [place], | | | | | | [place] [address] | | | | | | [phone] | | | | | | | | +--------+---------+ + + + documented as of this encounter Visit Diagnoses Not on filedocumented in this encounter"
--- OUTSIDE RECORDS SUMMARY | ~2020-01-14 | XMS | Encounter Summary ---
Demographics + + + | Address | [address] | | | [place] [address] | + + + | Home Phone [...] Samantha Ramos | ECON | [address] # | | | | | [place] | | | | | [address] | | + + + + + Care Team Providers + +------+ + | Care Assistant Associate Full Professor Name | Role | Phone | + +------+ + PCP | Unavailable | + +------+ + Encounter Details +--------+ + + + + | Date | Type | Department | Care Team | Description | +--------+ + + + + | 08/27/ | Office | [facility] | Clinic, Pediatric | Progress Note | | 2005 | Visit-Trans | QUARTZ ORIENTATOR | Endocrinology | | | | cribed [...] as of this encounter Progress Notes Interface, Diesel Mechanic Helper In - 10/18/2005 10:01 PM PST [id number] MARQUEZ RAYMOND BROOKS [facility] Date: 08/27/2005 [...] the school week, his father lives in [place], and apparently the school is better and [...] was 56. Diet: Brooks is on a cpidoazglxpv-hr-dqnktyi ratio. He has had dietary education about [...] sites. Assessment: Brooks is a 14-year and 98-rcpeb-iut boy with type 1 diabetes, who has poor control although it is somewhat improved from previously. He is relatively noncompliant with his diabetes. I have made the following recommendations: 1. I have asked the family to review carbohydrate counting with our sanitation truck cleaner today. 2. I have recommended to Brooks [...] in 4 months' time. Ashanti Roque M.D. Entry Level Electrical Engineer Pediatric Endocrinology / [id number] / [id number] / [id number] / [id number] cc: Neri Mojica [address] [place] [address]. Electronically signed by Ashanti Roque 09-10-2005 04:52:54 [...] | | | | [place], | | | | | | [place] [address] | | | | | | [phone] | | | | | | | | +--------+---------+ + + + documented as of this encounter Visit Diagnoses Not on filedocumented in this encounter"
--- OUTSIDE RECORDS SUMMARY | ~2020-01-14 | XMS | Encounter Summary ---
Demographics + + + | Address | [address] | | | [place] [address] | + + + | Home Phone | | + + + | Preferred Language | Unknown | + + + | Marital Status | Single | + + + | Mosque Affiliation | NON | + + + [...] Samantha Ramos | ECON | [address] # | | | | | [place] | | | | | [address] | | + + + + + Care Team Providers + +------+ + | Care Lift Truck Operator Name | Role | Phone | [...] Rd | | | | | [facility] | [place] [address] | | | | | [address] | | | | | | [place] | | | | | | [place], [place] | | | | | | [address] | | | | | | [phone] | | | +--------+ + + + [...] | | | | Lily [address] [place], | | | | | | [place] [address] | | | | | | [phone] | | | | | | | | +--------+---------+ + + + documented as of this encounter Visit Diagnoses Not on filedocumented in this encounter"
--- OUTSIDE RECORDS SUMMARY | ~2020-01-14 | XMS | Encounter Summary ---
Demographics + + + | Address | [address] | | | [place] [address] | + + + | Home Phone [...] [place] | | | | | [address] | | + + + + + Care Team Providers + +------+ + | Care Special Needs Child Caregiver Name | Role | Phone | + +------+ + | Erich Yates | PCP | | + +------+ + Encounter Details +--------+ + + + + | Date | Type | Department | Care Team | Description | +--------+ + + + + | 02/28/ | Documentati | [facility] [place] | [facility], | | | 2019 | on | GASTROENTEROLOGY | DANA [address] | | | | | [address] | [place], [address] | | | | | [address] [place], [place] | [place], [place] | | | | | [address] | [address] | | | | | [phone] | | | +--------+ + + + [...] 02/28/2019 8:47 AM PDTReceived notice from [facility] re [facility]. It [...]
--- OUTSIDE RECORDS SUMMARY | ~2020-01-14 | XMS | Encounter Summary ---
Demographics + + + | Address | [address] | | | [place] [address] | + + + | Home Phone [...] Samantha Ramos | ECON | [address] # | | | | | [place] | | | | | [address] | | + + + + + Care Team Providers + +------+ + | Care Coil Assembler Name | Role | Phone | + +------+ + | Erich Yates PA-C | PCP | | + +------+ + Encounter Details +--------+ + + + + | Date | Type | Department | Care Team | Description | +--------+ + + + + | 07/06/ | Transcribe | [email or web address] at [facility] | Transcribe | | | 2019 | Orders | [facility] [address] | Encounter, Provider, | | | | | [address] [place] | [address] | | | | | for Health and | [place] [address] | | | | | Healing, Building 2 | | | | | | [place], [place] | | | | | | [address] | | | | | | [phone] | | | +--------+ + + + [...] | | | | | [address] [place], | | | | | | [place] [address] | | | | | | [phone] | | | | | | | [...]
--- OUTSIDE RECORDS SUMMARY | ~2020-01-14 | XMS | Encounter Summary ---
Demographics + + + | Address | [address] | | | [place] [address] | + + + | Home Phone [...] Samantha Ramos | ECON | [address] # | | | | | [place] | | | | | [address] | | + + + + + Care Team Providers + +------+ + | Care Curing Pickling Packer Name | Role | Phone | [...] | | | type) | CLINIC | [facility] | | | | | diabetes | [address] | Rd | | | | | mellitus | BUILDING | [place], [place] | | | | | without | [address] | [address] | | | | | mention of | [address] | Phone: | | | | | complication | [place], | [phone] | | | | | , not stated | [place] [address] | Fax: | | | | | as | Phone: | [phone] | | | | | uncontrolled | [phone] | | | | | | | Fax: | | | | | | | [phone] | | +--------+ + + + + [...] (Primary Dx) | | | | [facility] | [facility] | | | | | [address] | [place], [place] | | | | | [address] | [address] | | | | | Physician's | [phone] | | | | | Pavilion, [address] | | | | | | [place], [place] | | | | | | [address] | | | | | | [phone] | | | +--------+---------+ + + + [...] week a nd fax to me on [phone]- or call/email earlier if blood sugars running consistently low . My email address is [email or web address] 2. Take 1 unit insulin [...] 1 week and fax to me on [phone]- or call/email earlier if blood sraabia gars running consistently low. My email address is [email or web address] 2. Take 1 unit insulin [...] | | | | | [address] [place], | | | | | | [place] [address] | | | | | | [phone] | | | | | | | | +--------+---------+ + + + + + +--------+ + + | Name | Type | Priori | Associated Diagnoses | Order Schedule | | | | ty | | | + + +--------+ + + | ND COLLECTION | Procedures | Routin | DM w/o | Ordered: 11/01/2007 | | CAPILLARY BLOOD | | e | Complication Type I | | | SPECIMEN | | | | | + + +--------+ + + | ND GLYCATED | Lab | Routin | DM [...] AMMON | [address] | [place], [place] | | | [place] [facility]INT OF CARE | [address] | [address] | | | TESTS | | | | + + + + + | [facility] | [address] | [place], [place] | | | TESTS | [facility] | [address] | | + + + + + documented in this encounter Visit Diagnoses + + | Diagnosis | + + | Type I (juvenile type) diabetes mellitus without mention of complication, not stated | | as uncontrolled - Primary | + + documented in this encounter
--- OUTSIDE RECORDS SUMMARY | ~2020-01-14 | XMS | Encounter Summary ---
Demographics + + + | Address | [address] | | | [place] [address] | + + + | Home Phone [...] Samantha Ramos | ECON | [address] # | | | | | [place] | | | | | [address] | | + + + + + Care Team Providers + +------+ + | Care Associate Professor Of Communication Name | Role | Phone | + [...] | 2019 | | Center at [facility] [address] | [address] | | | | | DIAMANTE Gallagher [facility] | [address] [place], | | | | | [facility] and | [place] [address] | | | | | [facility] 2 | [phone] | | | | | [place], [place] | | | | | | [address] | | | | | | [phone] | | | +--------+ + + + [...] | | | | | [address] [place], | | | | | | [place] [address] | | | | | | [phone] | | | | | | | | +--------+---------+ + + + documented as of this encounter Visit Diagnoses Not on filedocumented in this encounter"
--- OUTSIDE RECORDS SUMMARY | ~2020-01-14 | XMS | Encounter Summary ---
Demographics + + + | Address | [address] | | | [place] [address] | + + + | Home Phone [...] [place] | | | | | [address] | | + + + + + Care Team Providers + +------+ + | Care Bone Process Operator Name | Role | Phone | + +------+ + | Erich Yates | PCP | | + +------+ + Encounter Details +--------+ + + + + | Date | Type | Department | Care Team | Description | +--------+ + + + + | 01/11/ | Orders Only | [facility] | Conversion | | | 2018 | | NEPHROLOGY [place] | Transaction, | | | | | [address] | Provider Unknown | | | | | [address] [place], [place] | | | | | | [address] | (Fax) | | | | | [phone] | | | +--------+ + + + [...]
--- OUTSIDE RECORDS SUMMARY | ~2020-01-14 | XMS | Encounter Summary ---
Demographics + + + | Address | [address] | | | [place] [address] | + + + | Home Phone [...] [place] | | | | | [address] | | + + + + + Care Team Providers + +------+ + | Care Software Analyst Name | Role | Phone | [...] | | | [address] | [place] [address] | | | | | [place] [address] | | | | | | [phone] | | | +--------+ + + + [...]
--- OUTSIDE RECORDS SUMMARY | ~2020-01-14 | XMS | Encounter Summary ---
Demographics + + + | Address | [address] | | | [place] [address] | + + + | Home Phone [...] Samantha Ramos | ECON | [address] # | | | | | [place] | | | | | [address] | | + + + + + Care Team Providers + +------+ + | Care Relish Blender Name | Role | Phone | + [...] | | | | | diabetes | [place], [place] | floor | | | | | mellitus | [address] | [place], [place] | | | | | ([facility]) | Phone: | [address] | | | | | Procedures | [phone] | Phone: | | | | | CONSULT TO | Fax: | [phone] | | | | | GI PROCEDURE | [phone] | Fax: | | | | | UNIT: EGD | | [phone] | + +--------+ + + + + Encounter Details +--------+ + + + + | Date | Type | Department | Care Team | Description | +--------+ + + + + | 08/16/ | Seafood Preparer | Digestive Health | Beth Mondragon, | Diabetic | | 2019 | | Center at [facility] [address] | AN[address] | gastroparesis | | | | [facility] | [address] | associated with type | | | | for Health and | [place], [place] | 1 diabetes mellitus | | | | Healing, Building 2 | [address] | ([facility]) (Primary Dx) | | | | [place], [place] | [phone] | | | | | [address] | | | | | | [phone] | | | +--------+ + + + [...] | | | | | [address] [place], | | | | | | [place] [address] | | | | | | [phone] | | | | | | | | +--------+---------+ + + + documented as of this encounter Visit Diagnoses + + | Diagnosis | + + | Diabetic gastroparesis associated with type 1 diabetes mellitus (HCC) - Primary | + + documented in this encounter"
--- OUTSIDE RECORDS SUMMARY | ~2020-01-14 | XMS | Encounter Summary ---
Demographics + + + | Address | [address] | | | [place] [address] | + + + | Home Phone [...] [place] | | | | | [address] | | + + + + + Care Team Providers + +------+ + | Care Employment Consultant Name | Role | Phone | + +------+ + | Erich Yates | PCP | | + +------+ + Encounter Details +--------+ + + + + | Date | Type | Department | Care Team | Description | +--------+ + + + + | 06/20/ | Orders Only | [facility] | Winston Whitman MD | CKD (chronic kidney | | 2019 | | NEPHROLOGY [place] | [address] | disease), stage III | | | | [address] | [address] [place], [place] | ([facility]) (Primary Dx) | | | | [address] [facility] [place] | [address] | | | | | [address] | | | | | | [phone] | | | +--------+ + + + [...]
--- OUTSIDE RECORDS SUMMARY | ~2020-01-14 | XMS | Encounter Summary ---
Demographics + + + | Address | [address] | | | [place] [address] | + + + | Home Phone [...] Samantha Ramos | ECON | [address] # | | | | | [place] | | | | | [address] | | + + + + + Care Team Providers + +------+ + | Care Surgical Resident Name | Role | Phone | + [...] [facility] [address] | [address] | Appointment | | | | DIAMANTE Gallagher [facility] | [address] [place], | | | | | for Health and | [place] [address] | | | | | [place] [address] | [phone] | | | | | [place], [place] | | | | | | [address] | | | | | | [phone] | | | +--------+ + + + [...] | | | | | [address] [place], | | | | | | [place] [address] | | | | | | [phone] | | | | | | | | +--------+---------+ + + + documented as of this encounter Visit Diagnoses Not on filedocumented in this encounter"
--- OUTSIDE RECORDS SUMMARY | ~2020-01-14 | XMS | Encounter Summary ---
Demographics + + + | Address | [address] | | | [place] [address] | + + + | Home Phone [...] Samantha Ramos | ECON | [address] # | | | | | [place], [place] | | | | | [address] | | + + + + + Care Team Providers + +------+ + | Care Journeyman Electrician Name | Role | Phone | + [...] | | | | | [address] [place], | | | | | | [place] [address] | | | | | | [phone] | | | | | | | | +--------+---------+ + + + documented as of this encounter Visit Diagnoses Not on filedocumented in this encounter"
--- OUTSIDE RECORDS SUMMARY | ~2020-01-14 | XMS | Encounter Summary ---
Demographics + + + | Address | [address] | | | [place] [address] | + + + | Home Phone | | + + + | Preferred Language | Unknown | + + + | Marital Status | Single | + + + | Oriental Orthodox Affiliation | NON | + + [...] Samantha Ramos | ECON | [address] # | | | | | [place] | | | | | [address] | | + + + + + Care Team Providers + +------+ + | Care Chlorination Operator Name | Role | Phone | [...] | | | | | [place] | [facility] [address] | | | | | | CLINIC | [place] | | | | | | [address] | [address] | | | | | | BUILDING | [place], [place] | | | | | | [address] | [address] | | | | | | [address] | Phone: | | | | | | [place], | [phone] | | | | | | [place] [address] | Fax: | | | | | | Phone: | [phone] | | | | | | [phone] | | | | | | | Fax: | | | | | | | [phone] | | +--------+--------+ + + + + [...] | | | | [facility] | [place], [place] | | | | | [address] | [address] | | | | | [address] | [phone] | | | | | [place], [place] | | | | | | [address] | | | | | | [phone] | | | +--------+ + + + [...] as of this encounter Progress Notes Interface, Alum Mixer In - 12/15/2006 6:28 AM JOHNNY [id number] NAHOMY [facility] [id number] Clinic Date: 11/02/2006 Clinic: Pediatric Endocrinology Problem [...] regimen as necessary. Ashanti Roque M.D. / [id number] / [id number] / [id number] / [id number] cc: Neri Mojica M.D. [address] [facility] [address] [place], [place] MedRecNo: [id number], Account: [id number], DocSeq: [id number] Addendum December 09 2006 Alin's random urine microalbumin level was elevated, suggesting possible early kidney impairment. To further evaluate this, I have called the family and requested a first morning void urine microalbumin level. He may to start on an HASN inhibitor (which can slow or reverse early [...] | | | | | [address] [place], | | | | | | [place] [address] | | | | | | [phone] | | | | | | | [...] - AVEL[place] | [address] | [place], [place] | | | [place] | [facility] | [address] | | | TESTS | | | | + + + + + | [facility] | [address] | [place], [place] | | | TESTS | [facility] | [address] | | + + + + + documented in this encounter Visit Diagnoses Not on filedocumented in this encounter"
--- OUTSIDE RECORDS SUMMARY | ~2020-01-14 | XMS | Encounter Summary ---
Demographics + + + | Address | [address] | | | [place] [address] | + + + | Home Phone [...] Samantha Ramos | ECON | [address] # | | | | | [place] | | | | | [address] | | + + + + + Care Team Providers + +------+ + | Care Marketing Clerk Name | Role | Phone | [...] | 2019 | | Center at [facility] [address] | [place] [address] | Review | | | | DIAMANTE Gallagher [facility] | [address] | | | | | for Health and | [place], [place] | | | | | [place] [address] | [address] | | | | | [place], [place] | [phone] | | | | | [address] | | | | | | [phone] | | | +--------+ + + + [...] | | | | | [address] [place], | | | | | | [place] [address] | | | | | | [phone] | | | | | | | | +--------+---------+ + + + documented as of this encounter Visit Diagnoses Not on filedocumented in this encounter"
--- OUTSIDE RECORDS SUMMARY | ~2020-01-14 | XMS | Encounter Summary ---
Demographics + + + | Address | [address] | | | [place] [address] | + + + | Home Phone [...] Samantha Ramos | ECON | [address] # | | | | | [place] | | | | | [address] | | + + + + + Care Team Providers + +------+ + | Care Disc Sander Name | Role | Phone | + +------+ + PCP | Unavailable | + +------+ + Encounter Details +--------+ + + + + | Date | Type | Department | Care Team | Description | +--------+ + + + + | 08/27/ | Office | [facility] | Clinic, Pediatric | Progress Note | | 2005 | Visit-Trans | REMOTE CODERS | Endocrinology | | | | cribed [...] as of this encounter Progress Notes Interface, Hr Analyst In - 10/18/2005 10:01 PM PST [id number] MARQUEZ RAYMOND BROOKS [facility] Date: 08/27/2005 [...] the school week, his father lives in [place], and apparently the school is better and [...] was 56. Diet: Brooks is on a ngvhptvkgkej-mt-avbeday ratio. He has had dietary education about [...] sites. Assessment: Brooks is a 14-year and 27-sgala-qak boy with type 1 diabetes, who has poor control although it is somewhat improved from previously. He is relatively noncompliant with his diabetes. I have made the following recommendations: 1. I have asked the family to review carbohydrate counting with our commercial collector today. 2. I have recommended to Brooks [...] in 4 months' time. Ashanti Roque M.D. Sap Security Consultant Pediatric Endocrinology / [id number] / [id number] / [id number] / [id number] cc: Neri Mojica [address] [place] [address]. Electronically signed by Ashanti Roque 09-10-2005 04:52:54 [...] | | | | | [address] [place], | | | | | | [place] [address] | | | | | | [phone] | | | | | | | | +--------+---------+ + + + documented as of this encounter Visit Diagnoses Not on filedocumented in this encounter"
--- OUTSIDE RECORDS SUMMARY | ~2020-01-14 | XMS | Encounter Summary ---
Demographics + + + | Address | [address] | | | [place] [address] | + + + | Home Phone [...] [place] | | | | | [address] | | + + + + + Care Team Providers + +------+ + | Care Collar Separator Name | Role | Phone | [...] | | | [address] | [place] [address] | | | | | [place] [address] | | | | | | [phone] | | | +--------+ + + + [...]
--- OUTSIDE RECORDS SUMMARY | ~2020-01-14 | XMS | Encounter Summary ---
Demographics + + + | Address | [address] | | | [place] [address] | + + + | Home Phone [...] Samantha Ramos | ECON | [address] # | | | | | [place] | | | | | [address] | | + + + + + Care Team Providers + +------+ + | Care Manager Garage Name | Role | Phone | + [...] | | | | uncontrolled | Nathalia Gurpreet | [facility] | | | | | , with renal | Zena Todd | for Health | | | | | | [place], [place] | and Healing | | | | | manifestatio | [address] | Building [address], | | | | | n ([facility]) | Phone: | 11th Floor | | | | | Procedures | [phone] | [place], [place] | | | | | CONSULT TO | Fax: | [address] | | | | | OPHTHALMOLOG | [phone] | Phone: | | | | | Y | | [phone] | | | | | | | Fax: | | | | | | | [phone] | +--------+--------+ + + + + Reason [...] | | | with type 1 | [address] | 140 | | | | | diabetes | Phone: | [place], [place] | | | | | mellitus | [phone] | [address] | | | | | (HCC) Type | Fax: | Phone: | | | | | 1 diabetes | [phone] | [phone] | | | | | mellitus | | Fax: | | | | | with | | [phone] | | | | | hyperglycemi | [...] 2014 | Visit | Diabetes Health | MD [address] | uncontrolled, with | | | | [facility] | [address] | renal manifestation | | | | [address] | [place], [place] | ([facility]) (Primary Dx); | | | | [address] | [address] | Hyperglycemia due to | | | | Phys[facility] Pavilion | [phone] | type 1 diabetes | | | | [address] [place], | | mellitus ([facility]); Leg | | | | [place] [address] | | wound, right, | | | | [phone] | | initial encounter | +--------+---------+ + [...] be different f rom the original. [facility] Diabetes Clinic New Patient Consultation Referring physician: Jaison Pascual DO Primary care provider: Jaison Pascual DO Reason for Consultation: Type 1 diabetes History of Present Illness: This is a new patient to my clinic. Brooks Marquez II is a 24 y.o. male referred for evaluation of type 1 diabetes. Diagnosed in 2001. Seen in childhood in [facility] pediatric endocr inology. Long-standing suboptimal control. Diabetes complicated by gastroparesis and has bee n seen in the ER frequently. Multiple past episodes of DKA, most recently earlier this month at [facility]. Frequent nausea. Doing well since discharge and no current issues with vomiting. N o numbness/tingling. Did not have insurance for a period of time and was paying out of [employer] for his insulin approx 1 year ago [...] tobacco use: 1/2 ppd. 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 Allergies: Allergies Allergen Reactions Codeine Nausea and [...] random - Final result (09/02/2015 8:48 AM PST) Component Value Range Microalb, Ur 1337.2 (H) [...] Hyperglycemia due to type 1 diabetes mellitus ([facility]) S81.801A Leg wound, right, initial [...] in lower extremities. Already scheduled to s patient services assistant. Discussed conservative measures for wound and signs/symptoms [...] | | | | | [address] [place], | | | | | | [place] [address] | | | | | | [phone] | | | | | | | [...] | | | LABORATORY | | | TURKISH | | | SERVICES, | | | [...] | + + + + + | Night Zookeeper | [address] | [place] [address] | | | SERVICES, CORE | ZENA [...]
--- OUTSIDE RECORDS SUMMARY | ~2020-01-14 | XMS | Encounter Summary ---
Demographics + + + | Address | [address] | | | [place] [address] | + + + | Home Phone [...] Samantha Ramos | ECON | [address] # | | | | | [place] | | | | | [address] | | + + + + + Care Team Providers + +------+ + | Care Travel Accommodation Inspector Name | Role | Phone | [...] | | | | unspecified | [address] | [address] | | | | | type | [address]TE [address]anna | Avhugo | | | | | Procedures | [facility] | [place], [place] | | | | | CONSULT TO | Rd | [address] | | | | | HEMATOLOGY / | [place], [place] | Phone: | | | | | ONCOLOGY | [address] | [phone] | | | | | MT NEW | Phone: | Fax: | | | | | PATIENT | [phone] | [phone] | | | | | LEVEL V MT | Fax: | | | | | | EST PATIENT | [phone] | | | | | | LEVEL [...] | Diabetic | Lashawn Tan, | [address] | | | | | gastroparesi | PA-C [address] | | | | | s (HCC) | [address] [facility] | [facility] for | | | | | Abdominal | [facility] | Health and | | | | | pain, | Rd | Healing, | | | | | chronic, | [place], [place] | [address] 2 | | | | | epigastric | [address] | [place], [place] | | | | | Chronic | Phone: | [address] | | | | | diarrhea | [phone] | Phone: | | | | | Severe | Fax: | [phone] | | | | | protein-judy | [phone] | Fax: | | | | | danyel | | [phone] | | | | | malnutrition | [...] 2019 | | Center at [facility] [address] | PA-C [address] | (Local provider, | | | | DIAMANTE [address] [facility] | [facility] [address] | local labs) | | | | for Health and | [place], [place] | | | | | [facility] 2 | [address] | | | | | [place], [place] | [phone] | | | | | [address] | | | | | | [phone] | | | +--------+ + + + [...] | | | | | | [place] [address] | | | | | | [phone] | | | | | | | [...]
--- OUTSIDE RECORDS SUMMARY | ~2020-01-14 | XMS | Encounter Summary ---
Demographics + + + | Address | [address] | | | [place] [address] | + + + | Home Phone [...] Samantha Ramos | ECON | [address] # | | | | | [place] | | | | | [address] | | + + + + + Care Team Providers + +------+ + | Care Tablet Coater Name | Role | Phone | [...] | | [address], 3rd floor | | ([facility]) | | | | [place], [place] | | | | | | [address] | | | | | | [phone] | | | +--------+------+ + + + [...] | | | | | Lily Todd [place], | | | | | | [place] [address] | | | | | | [phone] | | | | | | | [...] | | | LABORATORY | | | CYPRIOT | | | SERVICES, | | | [...] | + + + + + | [facility] | [address] [facility] | [place] [address] | | | ZOEY DODD | PARK [...]
--- OUTSIDE RECORDS SUMMARY | ~2020-01-14 | XMS | Encounter Summary ---
Demographics + + + | Address | [address] | | | [place] [address] | + + + | Home Phone [...] Samantha Ramos | ECON | [address] # | | | | | [place] | | | | | [address] | | + + + + + Care Team Providers + +------+ + | Care Filler Shredding Machine Loader Name | Role | Phone | [...] | | uncontrolled | Nathalia Gurpreet | [facility] | | | | | , with renal | Zena Todd | for Health | | | | | | [place], [place] | and Healing | | | | | manifestatio | [address] | Building 1, | | | | | n ([facility]) | Phone: | 11th Floor | | | | | Procedures | [phone] | [place], [place] | | | | | CONSULT TO | Fax: | [address] | | | | | OPHTHALMOLOG | [phone] | Phone: | | | | | Y | | [phone] | | | | | | | Fax: | | | | | | | [phone] | +--------+--------+ + + + + Reason [...] | | | with type 1 | [address] | 140 | | | | | diabetes | Phone: | [place], [place] | | | | | mellitus | [phone] | [address] | | | | | (HCC) Type | Fax: | Phone: | | | | | 1 diabetes | [phone] | [phone] | | | | | mellitus | | Fax: | | | | | with | | [phone] | | | | | hyperglycemi | [...] | | | [address] | [place], [place] | ([facility]) (Primary Dx); | | | | [address] | [address] | Hyperglycemia due to | | | | Physician's Pavilion | [phone] | type 1 diabetes | | | | [address] [place], | | mellitus ([facility]); Leg | | | | [place] [address] | | wound, right, | | | | [phone] | | initial encounter | +--------+---------+ + [...] might be different f rom the original. [facility] Diabetes Clinic New Patient Consultation Referring physician: Jaison Pascual DO Primary care provider: Jaison Pascual DO Reason for Consultation: Type 1 diabetes History of Present Illness: This is a new patient to my clinic. Brooks Marquez II is a 24 y.o. male referred for evaluation of type 1 diabetes. Diagnosed in 2001. Seen in childhood in [facility] pediatric endocr inology. Long-standing suboptimal control. Diabetes complicated by gastroparesis and has bee n seen in the ER frequently. Multiple past episodes of DKA, most recently earlier this month at [facility]. Frequent nausea. Doing well since discharge and no current issues with vomiting. N o numbness/tingling. Did not have insurance for a period of time and was paying out of [facility] for his insulin approx 1 year ago [...] + tobacco use: 1/2 ppd. 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 Allergies: Allergies Allergen Reactions Codeine Nausea and [...] Hyperglycemia due to type 1 diabetes mellitus ([facility]) S81.801A Leg wound, right, initial encounter [...] in lower extremities. Already scheduled to s material attendant. Discussed conservative measures for wound and signs/symptoms [...] | | | | | [address] [place], | | | | | | [place] [address] | | | | | | [phone] | | | | | | | [...] | | | LABORATORY | | | [place] | | | SERVICES, | | [...] | + + + + + | [employer] | [address] | [place] [address] | | | SERVICES, CORE | ZENA [...]
--- OUTSIDE RECORDS SUMMARY | ~2020-01-14 | XMS | Encounter Summary ---
Demographics + + + | Address | [address] | | | [place] [address] | + + + | Home Phone [...] Samantha Ramos | ECON | [address] # | | | | | [place] | | | | | [address] | | + + + + + Care Team Providers + +------+ + | Care Data Entry Email Processor Name | Role | Phone | [...] evaluation | | 2020 | cheduled | [facility] | | | | | | [facility] | | | | | | [address] | | | | | | [facility] | | | | | | and Healing Building | | | | | | [address] [place], [place] | | | | | | [address] | | | | | | [phone] | | | +--------+ + + + [...] INSTRUCTIONS Eating/Drinking Instructions: Follow instructions provided by [facility] Endoscopy. You should have received these instruction s by mail or email. If you have not received them, contact Endoscopy at [phone]. General Medications Instructions Oral iron: If you [...] location: Day Stay Unit - [facility], 4th floor Room 4519 Procedure Check [...] ch as Uber/Lyft), or public transportation. An Uber/Lyft/[employer] driver does not count as the r [...] it is after office hours, call the [facility] machine room operator at [phone] and ask them to page the on-c [...] | | | | | Lily [address] [place], | | | | | | [place] [address] | | | | | | [phone] | | | | | | | | +--------+---------+ + + + documented as of this encounter Visit Diagnoses Not on filedocumented in this encounter"
--- OUTSIDE RECORDS SUMMARY | ~2020-01-14 | XMS | Encounter Summary ---
Demographics + + + | Address | [address] | | | [place] [address] | + + + | Home Phone | | + + + | Preferred Language | Unknown | + + + | Marital Status | Single | + + + | Sikhism Affiliation | Unknown | + + + | Race | Unknown | + + + | Ethnic Group | Unknown | + + + Author + + + | Author | [facility] | | | and [place] | + + + | Organization | [facility] | | | and [...] [place] | | | | | [address] | | + + + + + Care Team Providers + +------+ + | Care Clay Pigeon Setter Name | Role | Phone | + +------+ + | Erich Yates | PCP | | + +------+ + Encounter Details +--------+ + + + + | Date | Type | Department | Care Team | Description | +--------+ + + + + | 03/16/ | Orders Only | [facility] | Winston Whitman MD | | | 2019 | | NEPHROLOGY [place] | [address] [place] | | | | | [address] [place] | [address] [place], [place] | | | | | [address] [place], [place] | [address] | | | | | [address] | | | | | | [phone] | | | +--------+ + + + [...] | | | LAB | | | [facility] | | | | | + + [...]
--- OUTSIDE RECORDS SUMMARY | ~2020-01-14 | XMS | Encounter Summary ---
Demographics + + + | Address | [address] | | | [place] [address] | + + + | Home Phone [...] Samantha Ramos | ECON | [address] # | | | | | [place] | | | | | [address] | | + + + + + Care Team Providers + +------+ + | Care Coating Engineer Name | Role | Phone | [...] | Only | [address] | ENGINEER TECHNICIAN [address] | | | | | [address] | [address] | | | | | Mailcode: PV430 | [place] [address] | | | | | Physician's Pavilion | [phone] | | | | | [place], [place] | | | | | | [address] | | | | | | [phone] | | | +--------+ + + + [...] | | | | | Lily Todd [place], | | | | | | [place] [address] | | | | | | [phone] | | | | | | | [...]
--- OUTSIDE RECORDS SUMMARY | ~2020-01-14 | XMS | Encounter Summary ---
Demographics + + + | Address | [address] | | | [place] [address] | + + + | Home Phone [...] [place] | | | | | [address] | | + + + + + Care Team Providers + +------+ + | Care Financial Adviser Name | Role | Phone | [...] + + | 06/22/ | Telephone | [facility] | Winston Whitman MD | Other (Appointment | | 2019 | | NEPHROLOGY [place] | [address] | reminder call) | | | | [address] | [address] [facility] [place] | | | | | [address] [place], [place] | [id number] | | | | | [address] | | | | | | [phone] | | | +--------+ + + + [...]
--- OUTSIDE RECORDS SUMMARY | ~2020-01-14 | XMS | Clinical Summary ---
Demographics + + + | Address | [address] | | | [place] [address] | + + + | Home Phone [...] | Samantha Rmaos | ECON | [address] # | | | | | [place], [place] | | | | | [address] | | + + + + + Care Team Providers + +------+ + | Care Reporting Specialist Name | Role | Phone | + +------+ + | Erich Yates PA-C | PCP | | + +------+ + Source Comments VERITO is fully live on both [facility] and [facility] Allergies + + + + [...] | | | | | Lily Todd [place], | | | | | | [place] [address] | | | | | | [phone] | | | | | | | [...] | | | + +--------+ +--------+-------+---------+--------+ | [employer] MEDICAID | TOBACCO PACKER | xxxxxxxx | 04/03/20 | | | [...] lucian | | | 1 (Home) | [address] | + +--------+ +--------+ + + Advance [...]
--- OUTSIDE RECORDS SUMMARY | ~2020-01-14 | XMS | Encounter Summary ---
Demographics + + + | Address | [address] | | | [place] [address] | + + + | Home Phone [...] Samantha Ramos | ECON | [address] # | | | | | [place] | | | | | [address] | | + + + + + Care Team Providers + +------+ + | Care Retoucher Name | Role | Phone | + [...] | | | type) | CLINIC | [facility] | | | | | diabetes | [address] | Rd | | | | | mellitus | BUILDING | [place], [place] | | | | | without | [address] | [address] | | | | | mention of | [address] | Phone: | | | | | complication | [place], | [phone] | | | | | , not stated | [place] [address] | Fax: | | | | | as | Phone: | [phone] | | | | | uncontrolled | [phone] | | | | | | | Fax: | | | | | | | [phone] | | +--------+ + + + + [...] (Primary Dx) | | | | Center [facility] | [facility] | | | | | [address] | [place], [place] | | | | | [address] | [address] | | | | | Physician's | [phone] | | | | | Pavilion, [address] | | | | | | [place], [place] | | | | | | [address] | | | | | | [phone] | | | +--------+---------+ + + + [...] week a nd fax to me on [phone]- or call/email earlier if blood sugars running consistently low . My email address is [email or web address] 2. Take 1 unit insulin for [...] 1 week and fax to me on [phone]- or call/email earlier if blood sarabia gars running consistently low. My email address is [email or web address] 2. Take 1 unit insulin for [...] | | | | | Lily Todd [place], | | | | | | [place] [address] | | | | | | [phone] | | | | | | | [...] | [address] | [place], [place] | | | [place] POINT OF CARE | [address] | [address] | | | TESTS | | | | + + + + + | [facility] | [address] | [place], [place] | | | TESTS | [facility] | [address] | | + + + + + documented in this encounter Visit Diagnoses + + | Diagnosis | + + | Type I (juvenile type) diabetes mellitus without mention of complication, not stated | | as uncontrolled - Primary | + + documented in this encounter
--- OUTSIDE RECORDS SUMMARY | ~2020-01-14 | XMS | Encounter Summary ---
Demographics + + + | Address | [address] | | | [place] [address] | + + + | Home Phone [...] Samantha Ramos | ECON | [address] # | | | | | [place] | | | | | [address] | | + + + + + Care Team Providers + +------+ + | Care Able Bodied Seaman Name | Role | Phone | + [...] 2019 | | Center at [facility] [address] | [address] | Review | | | | DIAMANTE [address] [facility] | [address] | | | | | for Health and | [place], [place] | | | | | [place] [address] | [address] | | | | | [place], [place] | [phone] | | | | | [address] | | | | | | [phone] | | | +--------+ + + + [...] | | | | | Lily Todd [place], | | | | | | [place] [address] | | | | | | [phone] | | | | | | | | +--------+---------+ + + + documented as of this encounter Visit Diagnoses Not on filedocumented in this encounter"
--- OUTSIDE RECORDS SUMMARY | ~2020-01-14 | XMS | Encounter Summary ---
Demographics + + + | Address | [address] | | | [place] [address] | + + + | Home Phone [...] Samantha Ramos | ECON | [address] # | | | | | [place] | | | | | [address] | | + + + + + Care Team Providers + +------+ + | Care Rayon Winder Name | Role | Phone | + [...] | Only | [address] [address] | ENROLLMENT SERVICES VICE PRESIDENT [address] | | | | | [address] | [address] | | | | | Mailcode: PV430 | [place] [address] | | | | | Physician[facility] Pavilion | [phone] | | | | | [place], [place] | | | | | | [address] | | | | | | [phone] | | | +--------+ + + + [...] | | | | | Lily Todd [place], | | | | | | [place] [address] | | | | | | [phone] | | | | | | | [...]
--- OUTSIDE RECORDS SUMMARY | ~2020-01-14 | XMS | Encounter Summary ---
Demographics + + + | Address | [address] | | | [place] [address] | + + + | Home Phone [...] [place] | | | | | [address] | | + + + + + Care Team Providers + +------+ + | Care Abstracter Name | Role | Phone | + +------+ + | Erich Yates | PCP | | + +------+ + Encounter Details +--------+ + + + + | Date | Type | Department | Care Team | Description | +--------+ + + + + | 05/15/ | Abstract | [facility] | Divya, | | | 2017 | | GASTROENTEROLOGY | MD [address] | | | | | [address] [facility] | [place]. | | | | | [address] [place] | [place] [address] | | | | | [address] | | | | | | [phone] | | | +--------+ + + + [...]
--- OUTSIDE RECORDS SUMMARY | ~2020-01-14 | XMS | Encounter Summary ---
Demographics + + + | Address | [address] | | | [place] [address] | + + + | Home Phone [...] Samantha Ramos | ECON | [address] # | | | | | [place], [place] | | | | | [address] | | + + + + + Care Team Providers + +------+ + | Care Travel Pta Name | Role | Phone | [...] as of this encounter Discharge Summaries Interface, Stakes Player In - 04/08/2006 3:[address] [address] [facility] MEDICAL SUMMARY OF HOSPITALIZATION Med Rec No: [...] initially presented to the emergency department in [place] with four to five days of flu-like [...] insulin drip. He was transferred to the [facility] Pediatric Intensive Care Unit. HOSPITAL COURSE: [...] diabetes education from the endocrinology team. A bank messenger also worked closely with the family in educating on the [employer] diets. On the day of [...] Lindsey M.D. Tereso Morocho M.D. TC:x11 cc: [id number] signed by Interface, Stakes Player In at 04/08/2006 3:07 AM [facility] [...] | | | | Lily Todd [place], | | | | | | [place] [address] | | | | | | [phone] | | | | | | | | +--------+---------+ + + + documented as of this encounter Visit Diagnoses Not on filedocumented in this encounter"
--- OUTSIDE RECORDS SUMMARY | ~2020-01-14 | XMS | Encounter Summary ---
Demographics + + + | Address | [address] | | | [place] [address] | + + + | Home Phone | | + + + | Preferred Language | Unknown | + + + | Marital Status | Single | + + + | Hindu Affiliation | Unknown | + + + | Race | Unknown | + + + | Ethnic Group | Unknown | + + + Author + + + | Author | [facility] | | | and [place] | + + + | Organization | [facility] | | | [...] [place] | | | | | [address] | | + + + + + Care Team Providers + +------+ + | Care Oracle Programmer Analyst Name | Role | Phone | [...] | 03/22/ | Telephone | [facility] [place] | [facility], | Referral | | 2019 | | GASTROENTEROLOGY | [address] | | | | | [address] | [place], [address] | | | | | [address] [place], [place] | [place], [place] | | | | | [address] | [address] | | | | | [phone] | | | +--------+ + + + [...]
--- OUTSIDE RECORDS SUMMARY | ~2020-01-14 | XMS | Encounter Summary ---
Demographics + + + | Address | [address] | | | [place] [address] | + + + | Home Phone [...] Samantha Ramos | ECON | [address] # | | | | | [place] | | | | | [address] | | + + + + + Care Team Providers + +------+ + | Care Seamark Advanced Operator Maintainer Name | Role | Phone | + [...] [address] | | | | | [place], [place] | [place], [place] | | | | | [address] | [address] | | | | | [phone] | [phone] | | | | | | | [...] | | | | | [address] [place], | | | | | | [place] [address] | | | | | | [phone] | | | | | | | [...] | | | | URINE[facility]CARLOS | [facility] | | | | | M | [...] + + + + + | [facility] | [address] | [place] [address] | | | LABORATORY | | | | + + + + + documented in this encounter Visit Diagnoses Not on filedocumented in this encounter"
--- OUTSIDE RECORDS SUMMARY | ~2020-01-14 | XMS | Encounter Summary ---
Demographics + + + | Address | [address] | | | [place] [address] | + + + | Home Phone [...] Samantha Ramos | ECON | [address] # | | | | | [place] | | | | | [address] | | + + + + + Care Team Providers + +------+ + | Care Director Of [facility] Name | Role | Phone | + [...] 10/09/ | Documentati | VERITO [facility] at [facility] | Lab, Gi Procedure | Medical Records | | 2020 | on | [address] | | Review | | | | [address] [facility] | | | | | | for Health and | | | | | | Healing, [address] | | | | | | [place], [place] | | | | | | [address] | | | | | | [phone] | | | +--------+ + + + [...] | | | | | Lily Todd [facility] | | | | | | [place] [address] | | | | | | [phone] | | | | | | | | +--------+---------+ + + + documented as of this encounter Visit Diagnoses Not on filedocumented in this encounter"
--- OUTSIDE RECORDS SUMMARY | ~2020-01-14 | XMS | Encounter Summary ---
Demographics + + + | Address | [address] | | | [place] [address] | + + + | Home Phone [...] [address] | | | | | [address] | | + + + + + Care Team Providers + +------+ + | Care Sand Tester Name | Role | Phone | [...] + + | 09/19/ | Hospital | [facility] | Tc Mora | Right ureteral | | 2018 - | Encounter | [facility] | MD [address] | stone; Acute kidney | | | | [address] | [address] [place] | injury (HCC); Flank | | 09/20/ | | [place] [address] | [address] | pain; | | 2018 | | [phone] | | Hydronephrosis, | | | | [...] + | [facility] | [address] | [place] | [phone] | | [facility] | | [address] | | | - LABORATORY | | [...] mL/min/1.73m2 | [facility] | | | [place] | RATE,ESTIMATED | | MEDICAL | | | | mL/min/1.88k9Amyu than | | CENTER - | | [...] + | [facility] | [address] | [place] | [phone] | | [facility] | | [address] | | | - LABORATORY | | [...] [address] | [place] | [phone] | | [facility] | | [address] | | | - LABORATORY | | [...] this test. These results should be | [facility] | | integrated into the clinical context for interpretation. | [facility] | | | - LABORATORY | + + + + + + + + | Performing | Address | City/State/Zipcode | Phone Number | | Organization | | | | + + + + + | [facility] | [address] | [place], [place] | [phone] | | [facility] | | [address] | | | - LABORATORY | | [...] [address] | [place] | [phone] | | [facility] | | [address] | | | - LABORATORY | | [...] - 1.030 | [facility] | | | [place] | | | [facility] | | [...] [address] | [place] | [phone] | | [facility] | | [address] | | | - LABORATORY | | [...] + | [facility] | [address] | [place] | [phone] | | [facility] | | [address] | | | - LABORATORY | | [...] [address] | [place] | [phone] | | [facility] | | [address] | | | - LABORATORY | | [...] [address] | [place] | [phone] | | [facility] | | [address] | | | - LABORATORY | | [...] + | [facility] | [address] | [place] | [phone] | | [facility] | | [address] | | | - LABORATORY | | [...] mL/min/1.73m2 | [facility] | | | [place] | RATE,ESTIMATED | | MEDICAL | | | | mL/min/1.60c7Oypu than | | CENTER - | | [...] [address] | [place] | [phone] | | [facility] | | [address] | | | - LABORATORY | | [...] + | [facility] | [address] | [place] | [phone] | | [facility] | | [address] | | | - LABORATORY | | [...] MD | | | | | | ([id number]) on 09/21/2018 | | | | | [...] [address] | [place] | [phone] | | [facility] | | [address] | | | - LABORATORY | | [...] + | [facility] | [address] | [place] | [phone] | | [facility] | | [address] | | | - LABORATORY | | [...] mL/min/1.73m2 | [facility] | | | [place] | RATE,ESTIMATED | | MEDICAL | | | | mL/min/1.80x9Khng than | | CENTER - | | [...] [address] | [place] | [phone] | | [facility] | | [address] | | | - LABORATORY | | [...] + | [facility] | [address] | [place] | [phone] | | [facility] | | [address] | | | - LABORATORY | | [...] mL/min/1.73m2 | [facility] | | | [place] | RATE,ESTIMATED | | MEDICAL | | | | mL/min/1.57e9Asdy than | | CENTER - | | [...] [address] | [place] | [phone] | | [facility] | | [address] | | | - LABORATORY | | [...] [address] | [place] | [phone] | | [facility] | | [address] | | | - LABORATORY | | [...] Michelle | | | | | | at:[phone]. | | | | + + + [...] + | Performed at: 01 - [facility] [address] [facility], | REFERENCE LAB | | [place], [place] [id number] Calculator Operator: Sarabjit Love MD, Phone: | MICHELLE NORTON | | [phone] | | + + + + + + + + | Performing | Address | City/State/Zipcode | Phone Number | | Organization | | | | + + + + + | REFERENCE LAB | [address] | [place], [place] | [phone] | | [facility] [address] | [address] | | + + + + + [...] | [address] | [place] | [phone] | | [facility] | | [address] | | | - LABORATORY | | [...] | | | | | | | 7202-6816 Use NIGHT DOSE for | | | | | | | doses scheduled: HS, 3AM, | | | | | | | Nighttime 8359-1346, | | | | | | + [...]
--- OUTSIDE RECORDS SUMMARY | ~2020-01-14 | XMS | Encounter Summary ---
Demographics + + + | Address | [address] | | | [place] [address] | + + + | Home Phone [...] [place] | | | | | [address] | | + + + + + Care Team Providers + +------+ + | Care Telephone Lineman Name | Role | Phone | + [...] + + | 09/29/ | Office | [facility] | Tc Mora | Nephrolithiasis | | 2019 | Visit | [address] | MD [address] | (Primary Dx); | | | | [place] | [place] | Hyperkalemia; Stage | | | | [address] | [address] | 3 chronic kidney | | | | [phone] | | disease (HCC) | +--------+---------+ + [...] PLACEMENT; Surgeon: Tc Mora MD; Location: [facility] Family History: Family History [...] pH, Urine 6.0 5.0 - 8.0 Specific [place] 1.012 1.001 - 1.030 Protein, Urine 100 [...] ECGs available Confirmed by KARO FLORES, CRISTINE ([id number]) on 09/21/2018 6:31:13 AM Lab Results Component [...] have not thoroughly proofread this note, and 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 CC: [...]
--- OUTSIDE RECORDS SUMMARY | ~2020-01-14 | XMS | Encounter Summary ---
Demographics + + + | Address | [address] | | | [place] [address] | + + + | Home Phone [...] Samantha Ramos | ECON | [address] | | | | | [place] | | | | | [address] | | + + + + + Care Team Providers + +------+ + | Care Soda Tester Name | Role | Phone | [...] Rd | | | | | [facility] | [place] [address] | | | | | [address] | | | | | | [place] | | | | | | [place], [place] | | | | | | [address] | | | | | | [phone] | | | +--------+ + + + [...] | | | | | [place], | | | | | | [place] [address] | | | | | | [phone] | | | | | | | | +--------+---------+ + + + documented as of this encounter Visit Diagnoses Not on filedocumented in this encounter"
--- OUTSIDE RECORDS SUMMARY | ~2020-01-14 | XMS | Encounter Summary ---
Demographics + + + | Address | [address] | | | [place] [address] | + + + | Home Phone [...] [id number] | | | | | [address] | | + + + + + Care Team Providers + +------+ + | Care Ladle Liner Helper Name | Role | Phone | [...] | Services | Diabetic | Willard | [place] | | | Required | | ulcer of | MD Bernadette | [address] | | | | | left foot | [address] | [address] [place] | | | | | associated | [place] | [place], [place] | | | | | with type 1 | [place] | [address] | | | | | diabetes | [address] | Phone: | | | | | mellitus, | Phone: | [phone] | | | | | unspecified | [phone] | Fax: | | | | | part of | Fax: | [phone] | | | | | foot, | [phone] | | | | | | unspecified | | | | | | | ulcer stage | | | | | | | ([facility]) | | | | | | [...] + + | 01/05/ | Hospital | [facility] | Erika Allison MD | Generalized weakness | | 2020 - | Encounter | [facility] | [address] | (Primary Dx); | | | | [address] [place] | [place] | Diabetic | | 01/09/ | | [place] [address] | [address] | ketoacidosis without | | 2019 | | [phone] | | coma associated | | | | | Willard Aldrich | with type 1 diabetes | | | | | MD Bernadette [address] | mellitus (HCC); | | | | | [address] [place] | Acute renal failure | | | | | [place] [address] | superimposed on | | | | | [phone] | stage 3 chronic | | | | | | kidney disease, | | | | | | unspecified acute | | | | | | renal failure type | | | | | | ([facility]); Diabetic | | | | | | gastroparesis ([facility]); | | | | | | 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 | | | | | | with type 1 | | | | | | diabetes mellitus, | | | | | | unspecified part of | | | | | | foot, unspecified | | | | | | ulcer stage ([facility]) | +--------+ + + + + [...] might be differen t from the original. [place] HOSPITALIST DISCHARGE SUMMARY Pt. Name/Age/: Brooks [...] III, p/w Diarrhe a and AMS from [facility], found to have DKA and Acute [...] Medicine Why: hospital follow up Contact information: [address] [place] [address] Discharge to home with family Home health ordered on discharge for PT, wound care, and medication management Condition: Patient being discharged with condition improved Diet: consistent carb diet Greater than 30 minutes were spent on discharge and coordination of post-hospital care. Electronically signed by: Willard Aldrich MD, 01/10/2020 10:55 AM [facility] Reference. This is NOT part of [...] this chart may have been created with [employer] voice recognition software. Occasi onal wrong-word or [...] sick with another illness Date Last Reviewed: 03/26/201619997448-2289 [employer]. [address] [place] [address], [place] [address]. All righ ts reserved. This information is [...] flavors available): 8 ounces per day ? [employer] Fresh Yogurt (many flavors available): 6 ounces per day AttachmentsThe following attachments cannot be sent through Care Everywhere.Adult, Pneumoni a (Lithuanian)documented in this encounter Medications at Time of [...] might be differen t from the original. [facility] [place] HOSPITALIST PROGRESS NOTE Patient: Brooks Marquez : 1990: Age: 29 y.o. MedRec: [id number] PCP: Emmanuel Saavedra Admission date: 01/06/2020 Hospital [...] III, p/w Diarrhe a and AMS from [facility], found to have DKA and Acute [...] abx Willard Aldrich MD 01/09/2020 10:22 AM [facility] Subjective CC Continued nausea without [...] 84 TIBC 153* PCTSAT 55.0 FERRITIN 480* [id number] 1,885* FOLATE 2.0* Inflammatory markers Recent Labs [...] ABG No results for input(s): PHART, PO2ART, YTG0PDG, KAX9QNH, BEART, T1QKSCFD in the last 168 h ours. Recent [...] Date/Time [facility] STAT instructions for COVID-19 tracking [[id number]] Collected: 01/07/201451 Order Status: Canceled Lab Status: No result Updated: 01/07/201451 Specimen: Tissue from Nasopharynx Coronavirus (COVID-19) NAAT [[id number]] (Normal) Collected: 01/07/20 144 Order Status: Completed Lab Status: Final result Updated: 01/07/201902 Specimen: Tissue from Nasopharynx SARS coronavirus 2 RNA Not Detected Comment: See Scanned Report [facility] STAT instructions for COVID-19 tracking [[id number]] Collected: 01/07/201446 Order Status: Completed Lab Status: Final result Updated: 01/07/201902 Specimen: Tissue from Nasopharynx [facility] COVID STAT instruction done Stool Pathogens, NAAT [[id number]] (Normal) Collected: 01/06/20428 Order Status: Completed Lab Status: Final result Updated: 01/06/20 0816 Specimen: Stool Campylobacter, NAAT Not Detected Salmonella, NAAT Not Detected Shigella NAAT Not Detected Vibrio, NAAT Not Detected Yersinia enterocolitica, NAAT Not Detected Shigatoxin 1 Not Detected Shigatoxin 2 Not Detected Clostridioides difficle NAAT reflex to Tox Ag [[id number]] Collected: 01/06/20428 Order Status: Completed Lab Status: Final result Updated: 01/06/20704 Specimen: Stool Narrative: The following orders were created for panel order Clostridioides difficle NAAT reflex to T ox Ag. Procedure Abnormality Status --------- ------ Clostridioides difficile...[[id number]] Final result Please view results for these tests on the individual orders. Clostridioides difficile NAAT Reflex [[id number]] Collected: 01/06/20428 Order Status: Completed Lab Status: Final result Updated: 01/06/20 07 Specimen: Stool C. difficile, Interp Negative Comment: No Toxigenic C. difficile detected. Consider other causes of Diarrhea. Repeat te sting should not be performed within 7 days. C. difficile, NAAT Negative Fecal leukocytes [[id number]] (Normal) Collected: 01/06/20427 Order Status: Completed Lab Status: Final result Updated: 01/06/20 0504 Specimen: Stool Lactoferrin, Qual Negative Culture, Urine [[id number]] (Normal) Collected: 01/06/20 0428 Order Status: Completed Lab Status: Final result Updated: 01/08/20 1209 Specimen: Urine, Unspecified Source Culture No Growth Culture, Blood [[id number]] Collected: 01/06/20 0339 Order Status: Completed Lab Status: Preliminary result Updated: 01/09/20 0441 Specimen: Peripheral Blood Culture No growth: Monitored continually by instrument for 5 days Culture, Blood [[id number]] Collected: 01/06/20 0329 Order Status: Completed Lab Status: Preliminary result Updated: 01/09/20 044 Specimen: Peripheral Blood Culture No growth: Monitored continually by instrument for 5 days Culture, MRSA [[id number]] (Normal) Collected: 01/06/20 0255 Order Status: Completed Lab Status: Final result Updated: 01/07/20 0742 Specimen: Body Fluid from Nares Culture Negative for MRSA by chromogenic agar method. Culture, MRSA [[id number]] Order Status: Canceled Lab Status: No result Specimen: Tissue from Nares Culture, MRSA [[id number]] Order Status: Canceled Lab Status: No result [...] this chart may have been created with [employer] voice recognition software. 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 [facility] ProviderMD ondansetron (ZOFRAN ODT) 8 mg [...] performed and electronically signed by Kay Cleary, Anthropology Lecturer 01/08/2020 1:40 PM Reviewed by Mariama Saavedra, PharmD 01/08/2020 3:02 PM erry, Willard luna MD - 01/08/2020 7:52 AM PDTFormatting of this note might be different from the origi nal. [place] HOSPITALIST PROGRESS NOTE Patient: Brooks Mraquez : 1990: Age: 29 y.o. MedRec: [id number] PCP: Emmanuel Saavedra Admission date: 01/06/2020 Hospital [...] III, p/w Diarrhe a and AMS from [facility], found to have DKA and Acute [...] inpatient Willard Aldrich MD 01/08/2020 7:52 AM [facility] Subjective CC Some nausea, mid [...] 84 TIBC 153* PCTSAT 55.0 FERRITIN 480* [id number] 1,885* FOLATE 2.0* Inflammatory markers Recent Labs [...] ABG No results for input(s): PHART, PO2ART, ITM4YXM, LXW4CGX, BEART, N1JACOZL in the last 168 h ours. Recent [...] Date/Time [facility] STAT instructions for COVID-19 tracking [[id number]] Collected: 01/07/20 145 Order Status: Canceled Lab Status: No result Updated: 01/07/20 145 Specimen: Tissue from Nasopharynx Coronavirus (COVID-19) NAAT [[id number]] (Normal) Collected: 01/07/20 1447 Order Status: Completed Lab Status: Final result Updated: 01/07/20 1903 Specimen: Tissue from Nasopharynx SARS coronavirus 2 RNA Not Detected Comment: See Scanned Report [facility] STAT instructions for COVID-19 tracking [[id number]] Collected: 01/07/20 1447 Order Status: Completed Lab Status: Final result Updated: 01/07/20 1903 Specimen: Tissue from Nasopharynx [facility] COVID STAT instruction done Stool Pathogens, NAAT [[id number]] (Normal) Collected: 01/06/20428 Order Status: Completed Lab Status: Final result Updated: 01/06/20 0816 Specimen: Stool Campylobacter, NAAT Not Detected Salmonella, NAAT Not Detected Shigella NAAT Not Detected Vibrio, NAAT Not Detected Yersinia enterocolitica, NAAT Not Detected Shigatoxin 1 Not Detected Shigatoxin 2 Not Detected Clostridioides difficle NAAT reflex to Tox Ag [[id number]] Collected: 01/06/20428 Order Status: Completed Lab Status: Final result Updated: 01/06/20 07 Specimen: Stool Narrative: The following orders were created for panel order Clostridioides difficle NAAT reflex to T ox Ag. Procedure Abnormality Status --------- ------ Clostridioides difficile...[[id number]] Final result Please view results for these tests on the individual orders. Clostridioides difficile NAAT Reflex [[id number]] Collected: 01/06/20428 Order Status: Completed Lab Status: Final result Updated: 01/06/20 07 Specimen: Stool C. difficile, Interp Negative Comment: No Toxigenic C. difficile detected. Consider other causes of Diarrhea. Repeat te sting should not be performed within 7 days. C. difficile, NAAT Negative Fecal leukocytes [[id number]] (Normal) Collected: 01/06/20427 Order Status: Completed Lab Status: Final result Updated: 01/06/20 0504 Specimen: Stool Lactoferrin, Qual Negative Culture, Urine [[id number]] (Normal) Collected: 01/06/20427 Order Status: Completed Lab Status: Preliminary result Updated: 01/07/20 0832 Specimen: Urine, Unspecified Source Culture No growth to date Culture, Blood [[id number]] Collected: 01/06/20 0339 Order Status: Completed Lab Status: Preliminary result Updated: 01/06/20 1641 Specimen: Peripheral Blood Culture No growth: Monitored continually by instrument for 5 days Culture, Blood [[id number]] Collected: 01/06/20 0329 Order Status: Completed Lab Status: Preliminary result Updated: 01/06/20 1641 Specimen: Peripheral Blood Culture No growth: Monitored continually by instrument for 5 days Culture, MRSA [[id number]] (Normal) Collected: 01/06/20 0255 Order Status: Completed Lab Status: Final result Updated: 01/07/20 0742 Specimen: Body Fluid from Nares Culture Negative for MRSA by chromogenic agar method. Culture, MRSA [[id number]] Order Status: Canceled Lab Status: No result Specimen: Tissue from Nares Culture, MRSA [[id number]] Order Status: Canceled Lab Status: No result [...] A p reliminary report was sent by [email or web address] with no significant discrepancy on 01/06/2020 4 [...] this chart may have been created with [employer] voice recognition software. Occasi onal wrong-word or [...] Neumann MD - 01/07/2020 8:12 AM PDT [facility] Adult Hospitalist Progress Note Hospital Day: 1 Patient Summary: Briefly, 29-year-old male with an extensive past medical history most significant for type 1 diabetes mellitus complicated with gastroparesis right BKA and chronic left foot ulc er and CKD stage III who presented initially to [facility] with a chief complaint of di arrhea and confusion transferred to [facility] ICU for DKA and acute on chronic [...] [address] | [place] | [phone] | | [facility] | | [address] | | | - LABORATORY | | [...] [address] | [place] | [phone] | | [facility] | | [address] | | | - LABORATORY | | [...] + | [facility] | [address] | [place] | [phone] | | [facility] | | [address] | | | - LABORATORY | | [...] [address] | [place] | [phone] | | [facility] | | [address] | | | - LABORATORY | | [...] + | [facility] | [address] | [place] | [phone] | | [facility] | | [address] | | | - LABORATORY | | [...] | mL/min/1.73m2 | [facility] | | | [place] | RATE,ESTIMATED | | MEDICAL | | | | mL/min/1.24l8Dirb than | | CENTER - | | [...] [address] | [place] | [phone] | | [facility] | | [address] | | | - LABORATORY | | [...] + | Performing | Address | City/State/[facility] | Phone Number | | Organization | | | | + + + + + | [facility] | [address] | [place] | [phone] | | [facility] | | [address] | | | - LABORATORY | | [...] [address] | [place] | [phone] | | [facility] | | [address] | | | - LABORATORY | | [...] [address] | [place] | [phone] | | [facility] | | [address] | | | - LABORATORY | | [...] [address] | [place] | [phone] | | [facility] | | [address] | | | - LABORATORY | | [...] [address] | [place] | [phone] | | [facility] | | [address] | | | - LABORATORY | | [...] [address] | [place] | [phone] | | [facility] | | [address] | | | - LABORATORY | | [...] 2.91 (H) | 0.70 - 1.30 | [facility] | | | | | mg/dL | [facility] | | | | | | MEDICAL | | | | | | CENTER - | | | | | | LABORATORY | | + + + + + + | eGFR if not | 26 (L)Comment: | >=60 | [facility] | | | | GLOMERULAR FILTRATION | mL/min/1.73m2 | [facility] | | | [place] | RATE,ESTIMATED | | MEDICAL | | | | mL/min/1.54b3Azxv than | | CENTER - | | [...] + | [facility] | [address] | [place] | [phone] | | [facility] | | [address] | | | - LABORATORY | | [...] + | [facility] | [address] | [place] | [phone] | | [facility] | | [address] | | | - LABORATORY | | [...] | | | POC | | | [facility] [...] | + + + + + | [facility] | [address] | [place] | [phone] | | [facility] | | [address] | | | - LABORATORY | | [...] + | [facility] | [address] | [place] | [phone] | | [facility] | | [address] | | | - LABORATORY | | [...] [address] | [place] | [phone] | | [facility] | | [address] | | | - LABORATORY | | [...] | | MEDICAL | | | | mL/min/1.60j8Gwaj than | | CENTER - | | [...] [address] | [place] | [phone] | | [facility] | | [address] | | | - LABORATORY | | [...] [address] | [place] | [phone] | | [facility] | | [address] | | | - LABORATORY | | [...] [address] | [place] | [phone] | | [facility] | | [address] | | | - LABORATORY | | [...] [address] | [place] | [phone] | | [facility] | | [address] | | | - LABORATORY | | [...] + | [facility] | [address] | [place] | [phone] | | [facility] | | [address] | | | - LABORATORY | | [...] + | [facility] | [address] | [place] | [phone] | | [facility] | | [address] | | | - LABORATORY | | [...] ST. | [address] | [place] | [phone] | | [facility] | | [address] | | | - LABORATORY | | [...] [address] | [place] | [phone] | | [facility] | | [address] | | | - LABORATORY | | [...] + | [facility] | [address] | [place] | [phone] | | [facility] | | [address] | | | - LABORATORY | | [...] + | [facility] | [address] | [place] | [phone] | | [facility] | | [address] | | | - LABORATORY | | [...] [address] | [place] | [phone] | | [facility] | | [address] | | | - LABORATORY | | [...] [address] | [place] | [phone] | | [facility] | | [address] | | | - LABORATORY | | [...] [address] | [place] | [phone] | | [facility] | | [address] | | | - LABORATORY | | [...] + | [facility] | [address] | [place] | [phone] | | [facility] | | [address] | | | - LABORATORY | | [...] not | 19 (L)Comment: | >=60 | [facility] | | | | GLOMERULAR FILTRATION | mL/min/1.73m2 | [facility] | | | [place] | RATE,ESTIMATED | | MEDICAL | | | | mL/min/1.83r7Hkfx than | | CENTER - | | [...] [address] | [place] | [phone] | | [facility] | | [address] | | | - LABORATORY | | [...] [address] | [place] | [phone] | | [facility] | | [address] | | | - LABORATORY | | [...] [address] | [place] | [phone] | | [facility] | | [address] | | | - LABORATORY | | [...] [address] | [place] | [phone] | | [facility] | | [address] | | | - LABORATORY | | [...] + | [facility] | [address] | [place] | [phone] | | [facility] | | [address] | | | - LABORATORY | | [...] + | [facility] | [address] | [place] | [phone] | | [facility] | | [address] | | | - LABORATORY | | [...] | + + + + + | [facility] | [address] | [place] | [phone] | | [facility] | | [address] | | | - LABORATORY | | [...] + | [facility] | [address] | [place] | [phone] | | [facility] | | [address] | | | - LABORATORY | | [...] [address] | [place] | [phone] | | [facility] | | [address] | | | - LABORATORY | | [...] | | MEDICAL | | | | mL/min/1.27v6Khud than | | CENTER - | | [...] [address] | [place] | [phone] | | [facility] | | [address] | | | - LABORATORY | | [...] + | [facility] | [address] | [place] | [phone] | | [facility] | | [address] | | | - LABORATORY | | [...] [address] | [place] | [phone] | | [facility] | | [address] | | | - LABORATORY | | [...] [address] | [place] | [phone] | | [facility] | | [address] | | | - LABORATORY | | [...] [address] | [place] | [phone] | | [facility] | | [address] | | | - LABORATORY | | [...] [address] | [place] | [phone] | | [facility] | | [address] | | | - LABORATORY | | [...] [address] | [place] | [phone] | | [facility] | | [address] | | | - LABORATORY | | [...] [address] | [place] | [phone] | | [facility] | | [address] | | | - LABORATORY | | [...] not | 18 (L)Comment: | >=60 | [facility] | | | | GLOMERULAR FILTRATION | mL/min/1.73m2 | [facility] | | | [place] | RATE,ESTIMATED | | MEDICAL | | | | mL/min/1.61o2Rdih than | | CENTER - | | [...] [address] | [place] | [phone] | | [facility] | | [address] | | | - LABORATORY | | [...] + | [facility] | [address] | [place] | [phone] | | [facility] | | [address] | | | - LABORATORY | | [...] + | [facility] | [address] | [place], [place] | [phone] | | [facility] | | [address] | | | - LABORATORY | | [...] + | Performing | Address | City/State/[facility] | Phone Number | | Organization | | | | + + + + + | [facility] | [address] | [place] | [phone] | | [facility] | | [address] | | | - LABORATORY | | [...] + | [facility] | [address] | [place] | [phone] | | [facility] | | [address] | | | - LABORATORY | | [...] [address] | [place] | [phone] | | [facility] | | [address] | | | - LABORATORY | | [...] + | [facility] | [address] | [place] | [phone] | | [facility] | | [address] | | | - LABORATORY | | [...] 4.13 (H) | 0.70 - 1.30 | [facility] | | | | | mg/dL | [facility] | | | | | | MEDICAL | | | | | | CENTER - | | | | | | LABORATORY | | + + + + + + | eGFR if not | 17 (L)Comment: | >=60 | [facility] | | | | GLOMERULAR FILTRATION | mL/min/1.73m2 | [facility] | | | [place] | RATE,ESTIMATED | | MEDICAL | | | | mL/min/1.90a7Ujiu than | | CENTER - | | [...] + | [facility] | [address] | [place] | [phone] | | [facility] | | [address] | | | - LABORATORY | | [...] + | [facility] | [address] | [place], [place] | [phone] | | [facility] | | [address] | | | - LABORATORY | | [...] | | | report was sent by [email or web address] with no significant discrepancy on | | [...] preliminary report was | | sent by [email or web address] with no significant discrepancyon 01/06/2020 4:25 PM.Dictated [...] | |A preliminary report was sent by [email or web address] with no significant discrepancy | |on 01/06/2020 [...] [address] | [place] | [phone] | | [facility] | | [address] | | | - LABORATORY | | [...] ST. | [address] | [place], [place] | [phone] | | [facility] | | [address] | | | - LABORATORY | | [...] + | [facility] | [address] | [place] | [phone] | | [facility] | | [address] | | | - LABORATORY | | [...] + | [facility] | [address] | [place] | [phone] | | [facility] | | [address] | | | - LABORATORY | | [...] + | [facility] | [address] | [place] | [phone] | | [facility] | | [address] | | | - [...] 4.08 (H) | 0.70 - 1.30 | [facility] | | | | | mg/dL | [facility] | | | | | | MEDICAL | | | | | | CENTER - | | | | | | LABORATORY | | + + + + + + | eGFR if not | 17 (L)Comment: | >=60 | [facility] | | | | GLOMERULAR FILTRATION | mL/min/1.73m2 | [facility] | | | [place] | RATE,ESTIMATED | | MEDICAL | | | | mL/min/1.73u5Qkxe than | | CENTER - | | [...] 7.1 (L) | 8.7 - 10.4 | [facility] | | | | | [...] [address] | [place] | [phone] | | [facility] | | [address] | | | - LABORATORY | | [...] + | [facility] | [address] | [place] | [phone] | | [facility] | | [address] | | | - LABORATORY | | [...] ST. | [address] | [place], [place] | [phone] | | [facility] | | [address] | | | - LABORATORY | | [...] [address] | [place] | [phone] | | [facility] | | [address] | | | - LABORATORY | | [...] [address] | [place] | [phone] | | [facility] | | [address] | | | - LABORATORY | | [...] ST. | [address] | [place], [place] | [phone] | | [facility] | | [address] | | | - LABORATORY | | [...] [address] | [place] | [phone] | | [facility] [facility] | | [address] | | | - LABORATORY | | [...] [address] | [place] | [phone] | | [facility] | | [address] | | | - LABORATORY | | [...] [address] | [place] | [phone] | | [facility] | | [address] | | | - LABORATORY | | [...] [address] | [place] | [phone] | | [facility] | | [address] | | | - LABORATORY | | [...] | + + + + + | [facility] | [address] | [place] | | | [facility] | | [address] | | | - BLOOD BANK | [...] + | [facility] | [address] | [place] | [phone] | | [facility] | | [address] | | | - LABORATORY | | [...] ST. | [address] | [place], [place] | [phone] | | [facility] | | [address] | | | - LABORATORY | | [...] | [facility] | | | [place] | RATE,ESTIMATED | | MEDICAL | | | | mL/min/1.91u4Vkfa than | | CENTER - | | [...] [address] | [place] | [phone] | | [facility] | | [address] | | | - LABORATORY | | [...] + | [facility] | [address] | [place] | [phone] | | [facility] | | [address] | | | - LABORATORY | | [...] [address] | [place] | [phone] | | [facility] | | [address] | | | - LABORATORY | | [...] + | [facility] | [address] | [place] | [phone] | | [facility] | | [address] | | | - LABORATORY | | [...] [address] | [place] | [phone] | | [facility] | | [address] | | | - LABORATORY | | [...] difficile, | Toxigenic C. difficile | | [facility] | | | Interp | [...] [address] | [place] | [phone] | | [facility] | | [address] | | | - LABORATORY | | [...] [address] | [place] | [phone] | | [facility] | | [address] | | | - LABORATORY | | [...] + | [facility] | [address] | [place] | [phone] | | [facility] | | [address] | | | - LABORATORY | | [...] + | [facility] | [address] | [place] | [phone] | | [facility] | | [address] | | | - LABORATORY | | [...] [address] | [place] | [phone] | | [facility] | | [address] | | | - LABORATORY | | [...] + + | Performed at: 01 - [facility] [address], | REFERENCE LAB | | [place], [place] [id number] Keycase Assembler: Jerome Agudelo MD, Phone: | [facility] | | [phone] | | + + + + + + + + | Performing | Address | City/State/Zipcode | Phone Number | | Organization | | | | + + + + + | REFERENCE LAB | [address] | [place] | [phone] | | [facility] | [place] | [address] | | + + + + + [...] + | [facility] | [address] | [place] | [phone] | | [facility] | | [address] | | | - LABORATORY | | [...] - 1.030 | [facility] | | | [place] | | | [facility] | | [...] ST. | [address] | [place] | [phone] | | [facility] | | [address] | | | - LABORATORY | | [...] [address] | [place] | [phone] | | [facility] | | [address] | | | - LABORATORY | | [...] + | [facility] | [address] | [place] | [phone] | | [facility] | | [address] | | | - LABORATORY | | [...] | | | | CRISTINE HUDDLESTON MD ([id number]) | | | | | | on [...] ST. | [address] | [place], [place] | [phone] | | [facility] | | [address] | | | - LABORATORY | | [...] [address] | [place] | [phone] | | [facility] | | [address] | | | - LABORATORY | | [...] HIGINIO | | | | | | [facility] | | | | | | MEDICAL [...] + | [facility] | [address] | [place] | [phone] | | [facility] | | [address] | | | - LABORATORY | | [...] [address] | [place] | [phone] | | [facility] | | [address] | | | - LABORATORY | | [...] + | [facility] | [address] | [place] | [phone] | | [facility] | | [address] | | | - LABORATORY | | [...] | | | | mmol/L | [facility] | | | | | | MEDICAL [...] [address] | [place] | [phone] | | [facility] | | [address] | | | - LABORATORY | | [...] | | | | | | [employer] | | | | | [...] [address] | [place] | [phone] | | [facility] | | [address] | | | - LABORATORY | | [...] 4.16 (H) | 0.70 - 1.30 | [facility] | | | | | mg/dL | [facility] | | | | | | MEDICAL | | | | | | CENTER - | | | | | | LABORATORY | | + + + + + + | eGFR if not | 17 (L)Comment: | >=60 | [facility] | | | | GLOMERULAR FILTRATION | mL/min/1.73m2 | [facility] | | | [place] | RATE,ESTIMATED | | MEDICAL | | | | mL/min/1.00m4Turn than | | CENTER - | | [...] [address] | [place] | [phone] | | [facility] | | [address] | | | - LABORATORY | | [...] + | [facility] | [address] | [place] | [phone] | | [facility] | | [address] | | | - LABORATORY | | [...] ST. | [address] | [place], [place] | [phone] | | [facility] | | [address] | | | - LABORATORY | | [...] + | [facility] | [address] | [place] | [phone] | | [facility] | | [address] | | | - LABORATORY | | [...] + | [facility] | [address] | [place] | [phone] | | [facility] | | [address] | | | - LABORATORY | | [...] (HCC) | + + | Diabetic gastroparesis ([facility]) 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, not stated as uncontrolled | + + | Diabetic ulcer of left foot associated with type 1 diabetes mellitus, unspecified part | | of foot, unspecified ulcer stage ([facility]) | + + documented in this [...] | | | | | NPO, Daytime 5973-5325 Use NIGHT | | | | | | | DOSE for doses scheduled: | | | | | | | HS, Nighttime 9187-5745 If the | | | | | [...]
--- OUTSIDE RECORDS SUMMARY | ~2020-01-14 | XMS | Encounter Summary ---
Demographics + + + | Address | [address] | | | [place] [address] | + + + | Home Phone [...] [place] | | | | | [address] | | + + + + + Care Team Providers + +------+ + | Care Corking Machine Operator Name | Role | Phone | + +------+ + | Erich Yates | PCP | | + +------+ + Encounter Details +--------+ + + + + | Date | Type | Department | Care Team | Description | +--------+ + + + + | 02/28/ | Documentati | [facility] [place] | [facility], | | | 2019 | on | GASTROENTEROLOGY | DANA Perry [address] | | | | | [address] [place] | [place], [address] | | | | | [address] [place], [place] | [place], [place] | | | | | [address] | [address] | | | | | [phone] | | | +--------+ + + + [...] AM PDTReceived notice from [facility] whe re patient was referred. It [...]
--- OUTSIDE RECORDS SUMMARY | ~2020-01-14 | XMS | Encounter Summary ---
Demographics + + + | Address | [address] | | | [place] [address] | + + + | Home Phone [...] Samantha Ramos | ECON | [address] # | | | | | [place], [place] | | | | | [address] | | + + + + + Care Team Providers + +------+ + | Care Evp Operations Name | Role | Phone | [...] as of this encounter Progress Notes Interface, Waitstaff In - 04/25/2005 2:09 AM PDT [id number] 12/11/2004 12/11/2004 [id number] NAHOMY Durbin [facility] [address] [place], [place] [address] or December 11, 2004 Neri Mojica MD [address], [place] [address] RE: BROOKS MARQUEZ II MR #: [id number] Dear Dr. Mojica: I reviewed Brooks in [facility] today. This is his second visit our clinic, having established care here in September. To recap, he was diagnosed with type 1 diabetes in April 2002 and initially received his education in [employer] [facility]. He has been followed by yourself [...] at this present time, although I did certified alcohol and drug counselor him that this would be optimal [...] months' time. Yours sincerely, Ashanti Roque M.D. Pharmacovigilance Safety Expert, Pediatric Endocrinology / [id number] / [id number] / [id number] / documented i n this encounter Plan of Treatment +--------+---------+ + + + | Date | Type | Specialty | Care Team | Description | +--------+---------+ + + + | 01/24/ | Office | Surgery | Neri Steven MD | | | 2020 | Visit | | [address] | | | | | | [place], | | | | | | [place] [address] | | | | | | [phone] | | | | | | | | +--------+---------+ + + + documented as of this encounter Visit Diagnoses Not on filedocumented in this encounter"
--- OUTSIDE RECORDS SUMMARY | ~2020-01-14 | XMS | Encounter Summary ---
Demographics + + + | Address | [address] | | | [place] [address] | + + + | Home Phone [...] [place] | | | | | [address] | | + + + + + Care Team Providers + +------+ + | Care Electro Mechanical Designer Name | Role | Phone | + +------+ + | Emmanuel Saavedra PCP | | + +------+ + Encounter Details +--------+--------+ + + + | Date | Type | Department | Care Team | Description | +--------+--------+ + + + | 01/05/ | Intake | [facility] | | N/A | | 2019 | | [place]SF[address] [place] [address] | | | | | | [facility]nn [facility] | | | | | | [place], [place] | | | | | | [address] | | | | | | [phone] | | | +--------+--------+ + + + [...]
--- OUTSIDE RECORDS SUMMARY | ~2020-01-14 | XMS | Encounter Summary ---
Demographics + + + | Address | [address] | | | [place] [address] | + + + | Home Phone [...] [place] | | | | | [address] | | + + + + + Care Team Providers + +------+ + | Care Syrup Maker Name | Role | Phone | + +------+ + | Erich Yatse | PCP | | + +------+ + [...] + + | 09/19/ | Surgery | [facility] | Tc Mora | CYSTOSCOPY W/ | | 2017 | | MED CTR [facility]TRA OP | MD [address] | URETEROSCOPY W/ | | | | [address] | [place] | LASER LITHOTRIPSY | | | | [place] | [address] | WITH STENT PLACEMENT | | | | [address] | | | | | | [phone] | | | +--------+---------+ + + + [...] + | [facility] | [address] | [place] | [phone] | | [facility] | | [address] | | | - LABORATORY | | [...] | | | | | mmol/L | [facility] | | | | | | MEDICAL | | | | | | CENTER - | | | | | | LABORATORY | | + + + + + + | K | 5.7 (H) | 3.5 - 5.1 | [facility] | | | | | mmol/L | [facility] | | | | | [...] | | MEDICAL | | | | mL/min/1.43w6Gtcq than | | CENTER - | | [...] [address] | [place] | [phone] | | [facility] | | [address] | | | - LABORATORY | | [...] [address] | [place] | [phone] | | [facility] | | [address] | | | - LABORATORY | | [...] this test. These results should be | [facility] | | integrated into the clinical context for interpretation. | [facility] | | | - LABORATORY | + + + + + + + + | Performing | Address | City/State/Zipcode | Phone Number | | Organization | | | | + + + + + | [facility] | [address] | [place], [place] | [phone] | | [facility] | | [address] | | | - LABORATORY | | [...] + | [facility] | [address] | [place] | [phone] | | [facility] | | [address] | | | - LABORATORY | | [...] - 1.030 | [facility] | | | [place] | | | [facility] | | [address] | [place] | [phone] | | [facility] | | [address] | | | - LABORATORY | | [...] [address] | [place] | [phone] | | [facility] | | [address] | | | - LABORATORY | | [...] + | [facility] | [address] | [place] | [phone] | | [facility] | | [address] | | | - LABORATORY | | [...] [address] | [place] | [phone] | | [facility] | | [address] | | | - LABORATORY | | [...] + | [facility] | [address] | [place] | [phone] | | [facility] | | [address] | | | - LABORATORY | | [...] (H) | 7 - 18 mg/dL | [facility] | | | | | | [...] | | MEDICAL | | | | mL/min/1.31d9Gxwj than | | CENTER - | | [...] [address] | [place] | [phone] | | [facility] | | [address] | | | - [...] ST. | [address] | [place] | [phone] | | [facility] | | [address] | | | - LABORATORY | | [...] MD | | | | | | ([id number]) on 09/21/2018 | | | | | [...] [address] | [place] | [phone] | | [facility] | | [address] | | | - LABORATORY | | [...] | Lymphocytes | | K/uL | [facility] | [...] | Eosinophils | | K/uL | [facility] | | | | [...] [address] | [place] | [phone] | | [facility] | | [address] | | | - LABORATORY | | [...] | | MEDICAL | | | | mL/min/1.06m7Emkp than | | CENTER - | | [...] [address] | [place] | [phone] | | [facility] | | [address] | | | - LABORATORY | | [...] [address] | [place] | [phone] | | [facility] | | [address] | | | - LABORATORY | | [...] | | MEDICAL | | | | mL/min/1.40j3Mzzx than | | CENTER - | | [...] [address] | [place] | [phone] | | [facility] | | [address] | | | - LABORATORY | | [...] [address] | [place] | [phone] | | [facility] | | [address] | | | - LABORATORY | | [...] [facility] | | | | | | at:[phone]. | | | | + + + [...] at: 01 - Sebastien [place] [address] [facility] | REFERENCE LAB | | [place], [place] [id number] Band Instrument Maker: Sarabjit Love MD, Phone: | [facility] | | [phone] | | + + + + + + + + | Performing | Address | City/State/Zipcode | Phone Number | | Organization | | | | + + + + + | REFERENCE LAB | [address] | [place], [place] | [phone] | | [facility] | [place] | [address] | | + + + + + [...] ST. | [address] | [place] | [phone] | | [facility] | | [address] | | | - LABORATORY | | [...] | | | | | | | 3976-2934 Use NIGHT DOSE for | | | | | | | doses scheduled: HS, 3AM, | | | | | | | Nighttime 5352-1956, | | | | | | + [...]
--- OUTSIDE RECORDS SUMMARY | ~2020-01-14 | XMS | Encounter Summary ---
Demographics + + + | Address | [address] | | | [place] [address] | + + + | Home Phone [...] Samantha Ramos | ECON | [address] # | | | | | [place] | | | | | [address] | | + + + + + Care Team Providers + +------+ + | Care Funeral Counselor Name | Role | Phone | [...] [address] | | | | | [place], [place] | [place], [place] | | | | | [address] | [address] | | | | | [phone] | [phone] | | | | | | | [...] | | | | | [address] [place], | | | | | | [place] [address] | | | | | | [phone] | | | | | | | [...] | [facility] | | | | | [facility] | | | | | | Laboratories. | | | | + + + + + + + + | Specimen | + + | | + + + + + + + | Performing | Address | City/State/Zipcode | Phone Number | | Organization | | | | + + + + + | [facility] | [address] | [place] [address] | | | LABORATORY | | | [...] | | | SERUM | performed by [place] | | | | | | [facility] | | | | | | Laboratories. | | | | + + + + + + + + | Specimen | + + | | + + + + + + + | Performing | Address | City/State/Zipcode | Phone Number | | Organization | | | | + + + + + | [facility] | [address] | [place] [address] | | | LABORATORY | | | | + + + + + documented in this encounter Visit Diagnoses Not on filedocumented in this encounter"
--- OUTSIDE RECORDS SUMMARY | ~2020-01-14 | XMS | Encounter Summary ---
Demographics + + + | Address | [address] | | | [place] [address] | + + + | Home Phone [...] Samantha Ramos | ECON | [address] # | | | | | [place] | | | | | [address] | | + + + + + Care Team Providers + +------+ + | Care Food Technologist Name | Role | Phone | [...] | Procedural Unit at | MD Jerome [address] | | | | | [address] | [facility] | | | | | [address] | [place], [place] | | | | | [place], | [address] | | | | | 4th floor [place], | [phone] | | | | | [place] [address] | | | | | | [phone] | | | +--------+ + + + [...] | | | | | [place], | | | | | | [place] [address] | | | | | | [phone] | | | | | | | | +--------+---------+ + + + documented as of this encounter Visit Diagnoses Not on filedocumented in this encounter"
--- OUTSIDE RECORDS SUMMARY | ~2020-01-14 | XMS | Encounter Summary ---
Demographics + + + | Address | [address] | | | [place] [address] | + + + | Home Phone [...] Samantha Ramos | ECON | [address] # | | | | | [place] | | | | | [address] | | + + + + + Care Team Providers + +------+ + | Care Bit And Shank Department Supervisor Name | Role | Phone [...] | | | | | Procedures | [place], [place] | floor | | | | | CONSULT TO | [address] | [place], [place] | | | | | GI PROCEDURE | Phone: | [address] | | | | | UNIT: EGD | [phone] | Phone: | | | | | | Fax: | [phone] | | | | | | [phone] | Fax: | | | | | | | [phone] | + +--------+ + + + + [...] | | | | | Procedures | [facility] | [facility] and | | | | | CONSULT TO | Rd | Healing, | | | | | SURGERY - | [place], [place] | [facility] | | | | | GENERAL | [address] | [place], [place] | | | | | CONSULT TO | Phone: | [phone] | | | | | SURGERY - | [phone] | Phone: | | | | | GENERAL | Fax: | [phone] | | | | | | [phone] | Fax: | | | | | | | [phone] | + +--------+ + + + + [...] | | | | [address] | Ave [place], [place] | (Primary Dx) | | | | for Health and | [address] | | | | | [facility], [facility] | [phone] | | | | | [place], [place] | | | | | | [address] | | | | | | [phone] | | | +--------+---------+ + + + [...] might be different fr om the original. [facility] Department of Surgery [facility] [...] was mildly elevated but no evidence of DE. V/Q was neg f or PE. Functional [...] Vitals reviewed. Labs/Cultures/Pathology: HBA1c 9.8% Imaging/Diagnostic Studies: [place] GASTRIC EMPTYING STUDY 07/25/19: - No report - Severe gastroparesis seen [facility] GASTRIC EMPTYING STUDY Order: [id number] Status: Final result Visible to patient: No (Not Released) Details Reading Physician Reading Date Result Priority Emmanuel Mohamud MD 08/27/2015 Routine Component 3yr ago [place] GASTRIC EMPTYING EXAM: Gastric emptying study on [...] t he above plan. Silke Flores MD [facility] Pager #[phone] STAFF: A resident assisted with documenting this [...] | | | | | [address] [place], | | | | | | [place] [address] | | | | | | [phone] | | | | | | | | +--------+---------+ + + + documented as of this encounter Visit Diagnoses + + | Diagnosis | + + | History of diabetic gastroparesis - Primary Personal history of other endocrine, | | metabolic, and immunity disorders | + + documented in this encounter
--- OUTSIDE RECORDS SUMMARY | ~2020-01-14 | XMS | Clinical Summary ---
Demographics + + + | Address | [address]str[address] | | | [place] [address] | + + + | Home Phone [...] [place] | | | | | [address] | | + + + + + Care Team Providers + +------+ + | Care Car Ferrier Name | Role | Phone | + [...] Right: | JOYCE | | 07/14/ | [id number] | | - [id number]: | | | [employer] | | 2020 | / | | Qty: 1 on 09/19/2018 by | | Ureter | - JOYCE | | | /[id number] | | Tc Mora MD at | | | | | | 43 | | [facility] | | | | | | | | [facility] | | | | | [...] ST. | [address] | [place] | [phone] | | [facility] | | [address] | | | - LABORATORY | | [...] + | [facility] | [address] | [place] | [phone] | | [facility] | | [address] | | | - LABORATORY | | [...] + + | Performing | Address | City/State/[facility] | Phone Number | | Organization | | | | + + + + + | [facility] | [address] | [place] | [phone] | | [facility] | | [address] | | | - LABORATORY | | [...] 2.67 (H) | 0.70 - 1.30 | [facility] | | | | | mg/dL | [facility] | | | | | | MEDICAL | | | | | | CENTER - | | | | | | LABORATORY | | + + + + + + | eGFR if not | 28 (L)Comment: | >=60 | [facility] | | | | GLOMERULAR FILTRATION | mL/min/1.73m2 | [facility] | | | [place] | RATE,ESTIMATED | | MEDICAL | | | | mL/min/1.89z1Exmb than | | CENTER - | | [...] + | [facility] | [address] | [place] | [phone] | | [facility] | | [address] | | | - LABORATORY | | [...] | | | | mmol/L | [facility] | | | | [...] | mL/min/1.73m2 | [facility] | | | [place] | RATE,ESTIMATED | | MEDICAL | | | | mL/min/1.49g2Hent than | | CENTER - | | [...] [address] | [place] | [phone] | | [facility] | | [address] | | | - LABORATORY | | [...] ST. | [address] | [place] | [phone] | | [facility] | | [address] | | | - LABORATORY | | [...] + | [facility] | [address] | [place] | [phone] | | [facility] | | [address] | | | - LABORATORY | | [...] | mL/min/1.73m2 | [facility] | | | [place] | RATE,ESTIMATED | | MEDICAL | | | | mL/min/1.49k2Vass than | | CENTER - | | [...] (L) | 3.2 - 4.8 g/dL | [facility] | | | | | | [facility] [...] [address] | [place] | [phone] | | [facility] | | [address] | | | - LABORATORY | | [...] + | [facility] | [address] | [place] | [phone] | | [facility] | | [address] | | | - LABORATORY | | [...] | | | report was sent by [employer] with no significant discrepancy on | | [...] preliminary report was | | sent by [employer] with no significant discrepancyon 01/06/2020 4:25 PM.Dictated [...] | |A preliminary report was sent by [employer] with no significant discrepancy | |on 01/06/2020 [...] | Reticulocyt | | M/uL | [facility] | | | e Count | | | MEDICAL | | | | | | CENTER - | | | | | | LABORATORY | | + + + + + + | Immature | 15.1Comment: Values | 2.3 - 15.9 % | [facility] | | | Reticulocyt | above normal range | | . [facility] | | | e Fraction [...] [address] | [place] | [phone] | | [facility] | | [address] | | | - LABORATORY | | [...] + | [facility] | [address] | [place] | [phone] | | [facility] | | [address] | | | - LABORATORY | | [...] + | [facility] | [address] | [place] | [phone] | | [facility] | | [address] | | | - LABORATORY | | [...] St | [place] | | | [facility] | | [address] | | | - BLOOD BANK | [...] [address] | [place] | [phone] | | [facility] | | [address] | | | - LABORATORY | | [...] + | [facility] | [address] | [place] | [phone] | | [facility] | | [address] | | | - LABORATORY | | [...] [address] | [place] | [phone] | | [facility] | | [address] | | | - LABORATORY | | [...] + | [facility] | [address] | [place] | [phone] | | [facility] | | [address] | | | - LABORATORY | | [...] - 1.030 | [facility] | | | [place] | | | [facility] | | [address] | [place] | [phone] | | [facility] | | [address] | | | - LABORATORY | | [...] + | Performed at: 01 - [facility] [place] [address], | REFERENCE LAB | | [place], [place] [id number] Performance Improvement Coordinator: Jerome Agudelo MD, Phone: | [facility] | | [phone] | | + + + + + + + + | Performing | Address | City/State/Zipcode | Phone Number | | Organization | | | | + + + + + | REFERENCE LAB | [address] [facility] | [place], [place] | [phone] | | [facility] | [facility] | [address] | | + + + + + [...] [address] | [place] | [phone] | | [facility] | | [address] | | | - LABORATORY | | [...] [address] | [place] | [phone] | | [facility] | | [address] | | | - LABORATORY | | [...] [address] | [place] | [phone] | | [facility] | | [address] | | | - LABORATORY | | [...] + | [facility] | [address] | [place] | [phone] | | [facility] | | [address] | | | - LABORATORY | | [...] + + | [facility] [facility] | [address] | [place] | [phone] | | [facility] | | [address] | | | - LABORATORY | | [...] | | | | CRISTINE HUDDLESTON MD ([id number]) | | | | | | on [...] [address] | [place] | [phone] | | [facility] | | [address] | | | - LABORATORY | | [...] | | | | | | [employer] | | | | | [...] [address] | [place] | [phone] | | [facility] | | [address] | | | - LABORATORY | | [...] [address] | [place] | [phone] | | [facility] | | [address] | | | - LABORATORY | | [...] | | chromogenic agar method. | | [facility] | | | | | [...] [address] | [place] | [phone] | | [facility] | | [address] | | | - LABORATORY | | [...] [address] | [place] | [phone] | | [facility] | | [address] | | | - LABORATORY | | [...] | [employer] | MODA | [id number] | | [phone] | | Medica | | MEDICAID HMO | HEALTH | | 018-Pr | 1 | | id | | | MDCD | | esent | | | | | | [place] | | | | | | + +--------+ +--------+ +---------+--------+ | [employer] | [employer] | [id number] | | [phone] | | Medica | | MEDICAID HMO [...] [place] | | | 1 (Home) | [address] | + +--------+ +--------+ + + | Brooks Marquez | Person | Self | [birth year] | [address] | | | al/Fam | | 1990 | [phone] | [address] [place] | | | lucian | | | 1 (Home) | [address] | + +--------+ +--------+ + + Advance Directives + + + + + | Type | Date Recorded | Patient | Explanation | | | | Warp Dresser | | + + + + + | Power of | | | | | Rfid Engineer | | | | + + + [...]
--- OUTSIDE RECORDS SUMMARY | ~2020-01-14 | XMS | Encounter Summary ---
Demographics + + + | Address | [address] | | | [place] [address] | + + + | Home Phone [...] Samantha Ramos | ECON | [address] | | | | | [place] | | | | | [address] | | + + + + + Care Team Providers + +------+ + | Care Bit Gatherer Name | Role | Phone | + +------+ + | Neri Mojica MD | PCP | | + +------+ + Encounter Details +--------+ + + + + | Date | Type | Department | Care Team | Description | +--------+ + + + + | 07/16/ | Documentati | Orthopaedics at | Neri Mcgarry, | | | 2005 | on | [address] | [address] | | | | | [address] | [address] | | | | | Mailcode: PV430 | [facility] [place] | | | | | [facility] | [address] | | | | | [place], [place] | [phone] | | | | | [address] | | | | | | [phone] | | | +--------+ + + + [...] | | | | | [place], | | | | | | [place] [address] | | | | | | [phone] | | | | | | | | +--------+---------+ + + + documented as of this encounter Visit Diagnoses Not on filedocumented in this encounter"
--- OUTSIDE RECORDS SUMMARY | ~2020-01-14 | XMS | Encounter Summary ---
Demographics + + + | Address | [address] | | | [place] [address] | + + + | Home Phone [...] Samantha Ramos | ECON | [address] # | | | | | [place] | | | | | [address] | | + + + + + Care Team Providers + +------+ + | Care Detective Supervisor Name | Role | Phone | [...] | | | | | diabetes | [place] | floor | | | | | mellitus | [address] | [place], [place] | | | | | ([facility]) | Phone: | [phone] | | | | | Procedures | [phone] | Phone: | | | | | CONSULT TO | Fax: | [phone] | | | | | GI PROCEDURE | [phone] | Fax: | | | | | UNIT: EGD | | [phone] | + +--------+ + + + + Encounter Details +--------+ + + + + | Date | Type | Department | Care Team | Description | +--------+ + + + + | 08/16/ | Microfabrication Engineer Manager | Digestive Health | Beth Mondragon, | Diabetic | | 2019 | | Center at [facility] [address] | [address] | gastroparesis | | | | [facility] | [address] | associated with type | | | | for Health and | [place], [place] | 1 diabetes mellitus | | | | Healing, [address] | [address] | ([facility]) (Primary Dx) | | | | [place], [place] | [phone] | | | | | [address] | | | | | | [phone] | | | +--------+ + + + [...] | | | | | [place], | | | | | | [place] [address] | | | | | | [phone] | | | | | | | | +--------+---------+ + + + documented as of this encounter Visit Diagnoses + + | Diagnosis | + + | Diabetic gastroparesis associated with type 1 diabetes mellitus (HCC) - Primary | + + documented in this encounter"
--- OUTSIDE RECORDS SUMMARY | ~2020-01-14 | XMS | Encounter Summary ---
Demographics + + + | Address | [address] | | | [place] [address] | + + + | Home Phone [...] Samantha Ramos | ECON | [address] # | | | | | [place] | | | | | [address] | | + + + + + Care Team Providers + +------+ + | Care Tile Picker Name | Role | Phone | + [...] | | uncontrolled | Nathalia Gurpreet | [facility] | | | | | , with renal | Zena Todd | for Health | | | | | | [place], [place] | and Healing | | | | | manifestatio | [address] | [address], | | | | | n ([facility]) | Phone: | 11th Floor | | | | | Procedures | [phone] | [place], [place] | | | | | CONSULT TO | Fax: | [address] | | | | | OPHTHALMOLOG | [phone] | Phone: | | | | | Y | | [phone] | | | | | | | Fax: | | | | | | | [phone] | +--------+--------+ + + + + Reason [...] | | | with type 1 | [address] | [address] | | | | | diabetes | Phone: | [place], [place] | | | | | mellitus | [phone] | [address] | | | | | (HCC) Type | Fax: | Phone: | | | | | 1 diabetes | [phone] | [phone] | | | | | mellitus | | Fax: | | | | | with | | [phone] | | | | | hyperglycemi | [...] | | | [address] | [place], [place] | ([facility]) (Primary Dx); | | | | [address] | [address] | Hyperglycemia due to | | | | [facility] | [phone] | type 1 diabetes | | | | [address] [place], | | mellitus ([facility]); Leg | | | | [place] [address] | | wound, right, | | | | [phone] | | initial encounter | +--------+---------+ + [...] different f rom the original. [facility] New Patient Consultation Referring physician: Jaison Pascual DO Primary care provider: Jaison Pascual DO Reason for Consultation: Type 1 diabetes History of Present Illness: This is a new patient to my clinic. Brooks Marquez II is a 24 y.o. male referred for evaluation of type 1 diabetes. Diagnosed in 2001. Seen in childhood in [facility] pediatric endocr inology. Long-standing suboptimal control. Diabetes complicated by gastroparesis and has bee n seen in the ER frequently. Multiple past episodes of DKA, most recently earlier this month at [facility]. Frequent nausea. Doing well since discharge and no current issues with vomiting. N o numbness/tingling. Did not have insurance for a period of time and was paying out of [employer] for his insulin approx 1 year ago [...] tobacco use: 1/2 ppd. 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 Allergies: Allergies Allergen Reactions Codeine Nausea [...] Hyperglycemia due to type 1 diabetes mellitus ([facility]) S81.801A Leg wound, right, initial [...] in lower extremities. Already scheduled to s microsoft dynamics consultant. Discussed conservative measures for wound and signs/symptoms [...] | | | | | [address] [place], | | | | | | [place] [address] | | | | | | [phone] | | | | | | | [...] | | | LABORATORY | | | [facility] | | | SERVICES, | | | [...] | + + + + + | [employer] | [address] | [place] [address] | | | SERVICES, CORE | ZENA [...]
--- OUTSIDE RECORDS SUMMARY | ~2020-01-14 | XMS | Encounter Summary ---
Demographics + + + | Address | [address] | | | [place] [address] | + + + | Home Phone [...] Samantha Ramos | ECON | [address] # | | | | | [place] | | | | | [address] | | + + + + + Care Team Providers + +------+ + | Care Lehr Attendant Name | Role | Phone | [...] | Only | [address] | CONCRETE BUCKET LOADER [address] | | | | | [address] | [address] | | | | | Mailcode: PV430 | [place] [address] | | | | | [facility] | [phone] | | | | | [place], [place] | | | | | | [address] | | | | | | [phone] | | | +--------+ + + + [...] | | | | | | [place] [address] | | | | | | [phone] | | | | | | | [...]
--- OUTSIDE RECORDS SUMMARY | ~2020-01-14 | XMS | Encounter Summary ---
Demographics + + + | Address | [address] | | | [place] [address] | + + + | Home Phone [...] [place] | | | | | [address] | | + + + + + Care Team Providers + +------+ + | Care Five Piece Expansion Maker Hand Name | Role | Phone | + +------+ + | Erich Yates | PCP | | + +------+ + Encounter Details +--------+ + + + + | Date | Type | Department | Care Team | Description | +--------+ + + + + | 01/11/ | Orders Only | [facility] | Winston Whitman MD | | | 2019 | | NEPRHOLOGY HOOD | [address] | | | | | [address] | [address] [place], [place] | | | | | [address] [place], [place] | [address] | | | | | [address] | | | | | | [phone] | | | +--------+ + + + [...]
[~2020-01-14 02:49] MED LIST changes: +LYRICA100 MG PO; +METOPROLOL SUCC50 MG PO
--- OUTSIDE RECORDS SUMMARY | 2020-01-14 02:52 | XMS ---
PreManage Notification: [facility]OC COREA Security Top Dyeing Machine Tender Events 1 event(s) in the past 18 months Most recent security events: Elopement at [facility] 04/01/2019 14:50 - Other Details: PATIENT LEFT AMA. CRITERIA MET - [facility] - Has Care Guidelines - History of Sepsis Dx - PDMP - [facility] - 2 Visits in 30 Days CARE PROVIDERS CAMERON MENDEZ Physician Filtration Supervisor 05/01/2018-Current PHONE: [phone] Ruma Slater Supervisor/Port Director/Marine Equipment Test Engineer 04/12/2019-Current PHONE: [phone] [facility] Pain Medicine: Interventional Pain 01/07/2020-[facility] Medicine PHONE: [phone] Guidelines Source: [place] \F\ [place] IPA Guidelines Date: 05/04/2019 Care Coordination: If pt. presents to Ed please call case management at [facility] [phone] Leandra DORMAN or Jenni Westbrook RN Case Manager.\T\nbsp; Care History Medical/Surgical 05/01/2018 [facility] - CHW referred patient to [facility] case management team. - Further education on medications/chronic pain education is needed. - [facility] case management can be reached at [phone]. E.D. VISIT COUNT (12 MO.) 10 [facility] TOTAL 10 NOTE: Visits indicate total known visits. 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 - Acute kidney failure, unspecified - Other technical laboratory asst (current) drug therapy - Hyperkalemia - Gastroparesis - Allergy status to narcotic agent status - Rheumatoid arthritis, unspecified - Elevated white blood cell count, unspecified - Personal history of urinary calculi - Nicotine dependence, unspecified, uncomplicated 11/16/2019 10:53 [facility] [place] TYPE: Emergency COMPLAINT: - PAIN, WEAKNESS 10/29/2019 16:56 [facility] [place] TYPE: Emergency COMPLAINT: - PAIN, POSS INFECTION IN LEFT LEG NON INJURY DIAGNOSES: - Nicotine dependence, unspecified, uncomplicated - Allergy status to narcotic agent status - Type 1 diabetes mellitus with foot ulcer - halfway (current) use of insulin - Non-pressure chronic ulcer of other part of left foot with un - Other residential (current) drug therapy - Vomiting, unspecified - Unspecified abdominal pain - Type 1 diabetes mellitus with foot ulcer - Essential (primary) hypertension 08/28/2019 19:21 [facility] [place] TYPE: Emergency COMPLAINT: - SOB 06/22/2019 11:47 [facility] [place] TYPE: Emergency COMPLAINT: - ABD PAIN DIAGNOSES: - 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 - Upper abdominal pain, unspecified - Other technical laboratory asst (current) drug therapy - Allergy status to narcotic agent status - Nicotine dependence, unspecified, uncomplicated - Gastroparesis - Personal history of urinary calculi - Essential (primary) hypertension 06/12/2019 11:35 [facility] [place] TYPE: Emergency COMPLAINT: - BODY ACHES,CHILLS DIAGNOSES: - call center professional (current) use of insulin - Allergy status to narcotic agent status - Type 1 diabetes mellitus without complications - Other technical laboratory asst (current) drug therapy - Essential (primary) hypertension - Nicotine dependence, unspecified, uncomplicated - Upper abdominal pain, unspecified - Personal history of urinary calculi - Lower abdominal pain, unspecified 06/09/2019 11:31 [facility] [place] TYPE: Emergency COMPLAINT: - DEHYDRATION, ABD PAIN DIAGNOSES: - call center professional (current) use of insulin - Chest pain, unspecified - Essential (primary) hypertension - Unspecified abdominal pain - Other technical laboratory asst (current) drug therapy - Type 1 diabetes [...] unspecified, uncomplicated - Vomiting, unspecified - Other technical laboratory asst (current) drug therapy - Personal history of [...] - Nicotine dependence, unspecified, uncomplicated - Other technical laboratory asst (current) drug therapy - Acquired absence of right leg below knee INPATIENT VISIT TRACKING (12 MO.) 01/06/2020 02:[address] [facility] 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 - Personal history of urinary calculi - Other osteomyelitis, ankle and foot - Acute kidney failure, unspecified - Other residential (current) drug therapy - call center professional (current) use of insulin - Acute kidney failure, unspecified - Personal history of urinary calculi - Anxiety disorder, unspecified - Gastroparesis - Type 1 diabetes mellitus with other specified complication - Other osteomyelitis, ankle and foot - Anemia, unspecified - halfway (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 - Nicotine [...] mellitus with diabetic chronic kidney disease - halfway (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 - Acquired [...] mellitus with hypoglycemia without coma - Other residential (current) drug therapy - Allergy status to narcotic agent status - Exposure to other specified factors, initial encounter - 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
[2020-01-14] MEDS ORDERED: AUGMENTIN 875-1 EACH PO (05:19)
[2020-01-14] MEDS ORDERED: METOPROLOL TART50 MG PO (05:22)
[2020-01-14] MEDS ORDERED: HYOSCYAMINE0.125 M1 SL (05:22)
[2020-01-14] MEDS ORDERED: LANTUS SOL100 UNIT/1 SUB-Q (05:23)
--- NOTE | 2020-01-14 09:39 | NUR ---
PT TO FLOOR VIA STRETCHER WITH ANNETTE HYLTON AND STUDENT. PT TRANSFERED TO BED ON SLIDER SHEET. PT PAINFUL AND TEARFUL. PT HAS NO TEETH. STATES HE HAS A PAIN CONTRACT WITH IN THE [facility].
--- NOTE | 2020-01-14 10:15 | NUR ---
PT NOW SLEEPING ON SIDE. APPEARS MORE COMFORTABLE.
--- NOTE | 2020-01-14 11:07 | NUR ---
PATIENT RESTING IN BED. RN IN ROOM. VITAL SIGNS DONE BY RN. I&O DONE. PATIENT ASSISTED TO USE THE BEDPAN. TWO PERSON ASSISTING. CALL LIGHT WITHIN REACH. NO OTHER NEEDS AT THIS TIME
--- NOTE | 2020-01-14 11:14 | NUR ---
PT RESTING IN BED DR CAROLINA IN TO SEE HIM
--- NOTE | 2020-01-14 13:03 | NUR ---
PATIENT RESTING IN BED. PATIENT ASSISTED TO USE THE BEDPAN. TWO PERSON ASSISTING. VITAL SIGNS AND I&O DONE. CALL LIGHT WITHIN REACH. NO OTHER NEEDS AT THIS TIME
--- NOTE | 2020-01-14 13:26 | NUR ---
PT HAS BEEN TEAQRFUL SINCE ARRIVING TO [facility] FLOOR STATES HE DOESN'T KNOW WHY THIS HAS HAPPENED, HE HURTS, ETC. PT ON AND OFF THE BED GARZA PASSING LOOSE STOOL. MEDICATED FOR PAIN, NOON MEAL PROVIDED, CALL LIGHT IN REACH
--- NOTE | 2020-01-14 16:13 | NUR ---
dr wilder in to see pt changes dressing to left foot
--- NOTE | 2020-01-14 16:25 | NUR ---
Spoke with Alin. He is living in an apartment in [place] with his mom as his cg. He cont. in poor health. Low BS last night of 30 and pt was unable to move. Per mother, she thought he had had a stroke. Pt has wc, walker, shower chair, prothesis. He is awaiting a lift chair and pole for bathroom. Discussed where he would like to go on discharge. Pt's first choice would be to go home with a hospital bed and will. He would like his mom to cont. to be his cg. He is very concerned about his mother trying to care for him,as he is concerned she will hurt herself. He still would like to go home and feels if they have the proper equipment, they will be ok. Second choice, is to go to an assisted living or SNF. Called and spoke with mom. She states pt is very weak following hospital stay for pneumonia and where he developed wounds on his bottom. She states pt is very weak now and unable to transfer self. She feels they would be able to manage well with a will and a hospital bed. Pt has a large amount of edema in bottom, scrotom and thighs. He cannot transfer himself to bed or wc without hurting his scrotum. Mom also states he is just to weak.
--- NOTE | 2020-01-14 17:32 | NUR ---
PT SLEEPING SOUNDLY AWAKENED FOR CBG. ENCOURAGED PT TO EAT BLOOD SUGAR IS 88 EVENING MEAL SERVED.
--- NOTE | 2020-01-14 17:32 | NUR ---
PATIENT RESTING IN BED. RN IN ROOM. VITAL SIGNS AND I&O DONE. CALL LIGHT WITHIN REACH. NO OTHER NEEDS AT THIS TIME
[2020-01-14] MEDS ORDERED: GLUCAGON EMERGEN1 MG INJ (17:35)
[2020-01-14] MEDS ORDERED: BASAGLAR K100 UNIT/1 SUB-Q (17:39)
--- NOTE | 2020-01-14 19:15 | NUR ---
REPORT RECEIVED FROM ANNETTE PAGAN. pt RESTING IN BED. BREATHING UNLABORED.
--- NOTE | 2020-01-14 20:25 | NUR ---
CALL LIGHT ANSWERED. pt ASSISTED TO BEDPAN, 2PA. pt EMOTIONAL, STATING "MY BUTT HURTS". CALL LIGHT AND WATER IN REACH. pt VERBALIZES UNDERSTANDING TO USE CALL LIGHT WHEN FINISHED.
--- NOTE | 2020-01-14 21:07 | NUR ---
CALL LIGHT ANSWERED. IV PUMP ALARMING, DISTAL OCCLUSION, INFUSING WNL ORDERED. pt REQUESTING MORE TIME ON BED GARZA. CALL LIGHT IN REACH.
--- NOTE | 2020-01-14 21:55 | NUR ---
CHECKED ON pt. REQUESTING MORE TIME ON BEDPAN FOR BM. CALL LIGHT IN REACH.
--- NOTE | 2020-01-14 23:00 | NUR ---
IN pt ROOM TO ASSIST pt OFF BEDPAN, pt RELUCTANT TO GET OFF BEDPAN, CRYING STATING "IT WON'T STOP". EDUCATED ON SKIN CARE, HYGIENE. 2PA FOR BED CHANGE, ATTENDS, BARRIER CREAM APPLIED. ASSESSMENT COMPLETE. CBG 59. MD NOTIFIED. pt ABLE TO DRINK ORANGE JUICE, REFUSING ADDITIONAL FOOD. CBG 71 AFTER 15 MINUTES. SECOND GLASS ORANGE JUICE PROVIDED. BROWN CARE COMPLETE. NEW ATTEMPT AT IV START BY THIS RN AND ANNETTE THORNTON. CENTER DIRECTOR FUENTES NOW IN ROOM FOR IV ROTATION PER POLICY.
--- NOTE | 2020-01-15 00:19 | NUR ---
PT CBG 63. ALERT AND ORIENTATED, PLEASANT STATED THAT HE DID DRINK ALL HE WAS GIVEN, (ORANGE JUICE SUGAR). REPORTED TO HIS PRIMARY RN.
--- NOTE | 2020-01-15 00:30 | NUR ---
2 UNSUCCESSFUL IV ATTEMPTS
--- NOTE | 2020-01-15 00:30 | NUR ---
CBG REASSESSED, 63 MG/DL. PRN MEDICATION ADMINISTERED PER PROTOCOL SEE EMAR. pt REFUSING OFFERED PO FLUIDS, FOOD pt STATES "IT WILL UPSET MY STOMACH, I'M NOT EATING ANYTHING ELSE". NEW IV STARTED RIGHT UPPER ARM BY CREDENTIALER ANNETTE DILL. CALL LIGHT IN REACH.
--- NOTE | 2020-01-15 01:10 | NUR ---
pt RESTING IN BED WITH EYES CLOSED, BREATHING UNLABORED. AWAKENS TO VOICE. CBG 103 AT THIS TIME. IVF INFUSING WNL ORDERED. US GUIDED IV SITE FLUSHED WNL, SL. pt DENIES ANY PAIN OR DISCOMFORT. CALL LIGHT IN REACH. BROWN DRAINING CLEAR YELLOW URINE.
--- NOTE | 2020-01-15 03:00 | NUR ---
pt SLEEPING, AWAKENS TO VOICE. CBG 115. pt RATES PAIN 7/10 "OVERALL". DROWSY. REPOSITIONED WITH TWO RN ASSIST. DRESSING CDI LEFT FOOT. LEG ELEVATED. ATTENDS DRY, NO INCONTINENCE NOTED, CREAM APPLIED TO BUTTOCKS, SCROTAL AREA. BROWN EMPTIED, CLEAR YELLOW URINE. CALL LIGHT IN REACH. ICE WATER PROVIDED. ASSESSMENT COMPLETE.
--- NOTE | 2020-01-15 05:38 | NUR ---
pt RESTING IN BED ASLEEP, AWAKENS TO VOICE. RATES PAIN 8/10 "ALL OVER". PRN MEDICATION ADMINISTERED. VS AND IS AND OS COMPLETE. CALL LIGHT IN REACH. pt REFUSING PO SUPPLEMENTATION ENCOURAGED.
--- NOTE | 2020-01-15 06:06 | NUR ---
pt INCONTINENT OF STOOL AT START OF SHIFT, PRN MEDICATION FOR DIARRHEA. CBG 59 AT START OF SHIFT, pt WITH MINIMAL PO INTAKE, REFUSING SOLID FOOD INGESTION THIS SHIFT. PRN MEDICATION FOR HYPOGLYCEMIA. TESSY LIFT. REPOSITIONED THROUGHOUT SHIFT. BARRIER CREAM TO SCROTUM AND BUTTOCKS. BROWN W QS OUTPUT. PRN PAIN MEDICATION AVAILABLE. CSM INTACT LLE. DRESSING CDI.
--- NOTE | 2020-01-15 06:50 | NUR ---
IV PUMP ALARMING, DISTAL OCCLUSION. IVF INFUSING WNL ORDERED. pt REPOSITIONED WITH TWO NURSING STAFF ASSIST. ATTENDS DRY. pt HAS NO REQUESTS AT THIS TIME. CALL LIGHT IN REACH.
--- NOTE | 2020-01-15 07:38 | NUR ---
ENTERED ROOM TO CHECK ON pt. pt LAYING IN BED WITH BLANKET OVER HEAD. pt WAS SLEEPING IN BED WITH CALL LIGHT ON LAP WITH BLANKET OVER HIS HEAD. BED WAS IN LOWEST POSITION. PAIN WAS ASSESSED. PT WAS LEFT IN SAME POSITION THAT HE WAS FOUND IN.
--- NOTE | 2020-01-15 08:30 | NUR ---
ENTERED pt ROOM TO ASSESS pt. pt WAS SITTING IN BED WITH CALL LIGHT ON LAP. BED WAS IN LOWEST POSITION WITH HEAD RAILS UP X2. pt NEED NOTHING AT THIS TIME. pt SHIFTED IN BED WHILE TALKING. pt WAS LEFT WITH BED IN SAME POSITION AND CALL LIGHT ON LAP.
--- NOTE | 2020-01-15 09:21 | NUR ---
PT AWAKE AND SITTING UP IN BED TO EAT BKF. PT IS DOING WELL WITH LYNETTE LOTT, PT TALKING ABOUT HOW HE DOES NOT LIKE HOW AND WHAT HIS DIET IS, BUT IS CURRENTLY EATTING WHAT WAS ORDERED. IT APPEARS THAT TAKING AND THE EXTRA TIME WITH HE DOES BETTER WITH THE HOSPITAL ROUTINE.
--- NOTE | 2020-01-15 09:30 | NUR ---
Spoke with Alin. He is starting to feel somewhat better today. Diarrhea has decreased, he states this is part of his gastroparesis. States he is able to move his limbs more, was able to butter his toast, but had difficulty. He is eating his breakfast. Wants to go home today and is near tears. States he has spent the last 20 of 30 days in the hospital. Updated I am have received rx for bed and will and I am working with [facility] for equipment so he can go home. Pt states he has felt very short tempered lately. He will try and relax.
--- NOTE | 2020-01-15 10:25 | NUR ---
pt SITTING IN BED WITH CALL LIGHT ON SIDE TABLE. BED IS IN LOWEST POSITION. pt STATED "I AM JUST WAITING ON PT TO COME BACK". PT LEFT IN SAME POSITION FOUND.
--- NOTE | 2020-01-15 10:30 | NUR ---
ENTERED pt ROOM TO ANSWER CALL LIGHT. pt NEEDED TO USE RESTROOM. BED GARZA WAS PUT UNDER pt. pt WAS LEFT SETTING ON BED GARZA AND TOLD TO CALL WHEN FINISHED VOIDING.
--- NOTE | 2020-01-15 11:25 | NUR ---
PT GIVEN IMODIUM PO FOR LARGE LIQUID STOOL 600MLS + . HE WAS ON THE BEDPAN FOR THIS BM. BUTTOM IS VERY RED AND PAINFUL TO TOUCH.
--- NOTE | 2020-01-15 11:38 | NUR ---
MED REC COMPLETE
--- NOTE | 2020-01-15 11:40 | NUR ---
ENTERED ROOM TO HELP PATIENT OFF OF BED GARZA. pt HAD VOIDED LOOSE STOOL. pt WAS MOVED IN THE BED. pt HAD CALL LIGHT WITHIN REACH, BED WAS IN LOWEST POSITION, AND HEAD RAILS UP X2.
--- NOTE | 2020-01-15 12:22 | NUR ---
PT MEDICATED WITH 10MG PO FOR PAIN AT THIS TIME. LUNCH IS ON THE BEDSIDE.
--- NOTE | 2020-01-15 12:25 | NUR ---
ENTERED ROOM TO GIVE pt PAIN MEDICATIONS. pt WAS SITTING UP IN BED, WITH CALL LIGHT ON SIDE TABLE, AND HEAD RAILS UP X2. pt REPOSITIONED HIMSELF TO BE ABLE TO EAT LUNCH. pt DID NOT NEED ANYTHING ELSE AT THIS TIME. pt LEFT SITTING UP EATING WITH CALL LIGHT ON SIDE TABLE.
--- NOTE | 2020-01-15 12:30 | NUR ---
TALKING WITH PT ABOUT CARB COUNTS AND HOW TO USE IT. AFTER TALKING WITH HIM HE HAS A LITTLE MORE UNDERSTANDING ON WHAT AND HOW IT WORKS. HE IS LESS ANGERY ABOUT HIS DIET WITH SOME EDUCATION. WILL CONTIOUE TO WORK ON THIS AND GIVE HIM SOME WRITTEN INFORMATION.
--- NOTE | 2020-01-15 12:59 | NUR ---
PT RECLINING IN BED, LUNCH ON TRAY. PT GREETED ME AND RESPONDED THAT HE IS TRYING TO NAP AND GRAZE ON LUNCH. HAD BRIEF, PLEASANT VISIT. GAVE BLESSING
--- NOTE | 2020-01-15 13:40 | NUR ---
ENTERED pt ROOM TO CHECK ON pt. pt WAS SITTING UP IN BED EATING LUNCH. BED WAS IN LOWEST POSITION WITH HEAD RAILS UP x2. pt IS STILL ON BED GARZA, BUT STATES "I WOULD LIKE TO GET OFF THIS BED GARZA, BUT EVERYTIME I FEEL LIKE I AM READY I START GOING AGAIN." COMMISSIONS ANALYST LEFT TO GET PRN MEDICATIONS FOR DIARRHEA. pt WAS SITTING IN BED ON BED GARZA WITH CALL LIGHT WITHIN REACH.
--- NOTE | 2020-01-15 13:45 | NUR ---
IMODIUM AND LEVSIN PO FOR LIQUIDED STOOLS. PT LUNCH AT THE BEDSIDE.
--- NOTE | 2020-01-15 15:08 | NUR ---
PT GIVEN COMPLETE BEDBATH AND A PARTICAL LINE CHANGE AT THIS TIME, ALSO APPLIED LOTION TO PT SKIN DUE TO IT IS VERY DRIVE. IT APPEARS THAT PT HAS NOT BATHED IN SOME TIME. IT IS NOTED TO HAVE VERY DRY FLAKEY SKIN AND AREAS OF DIRT ON HIS SKIN, AND HIS SCAPLE APPEARS TO HAVE CRADDLE CAP. PT SCTRUM AND BUTT AREA IS VERY RED, HOT AND VERY SORE TO TOUCH. PT CRIES AT TIMES WHEN CLEANING. PT IS COOPERATIVE WITH STAFF AT THIS TIME.
--- NOTE | 2020-01-15 15:45 | NUR ---
ENTERED pt ROOM TO TAKE VITAL SIGNS. pt LYING IN BED WITH CALL LIGHT ON SIDE TABLE. HEAD RAILS UP X2 AND BED IN LOWEST POSITION. pt DID NOT NEED ANYTHING AT THE TIME. LEFT ROOM AND pt WAS SLEEPING IN SAME POSITION FOUND.
--- NOTE | 2020-01-15 16:50 | NUR ---
ENTERED pt ROOM TO PERFORM SURE STEP PRO BLOOD GLUCOSE CHECK. PT WAS SITTING WAS LAYING IN BED WITH HEAD RAILS UP X2. pt ASKED ABOUT PAIN MEDICATION. PRINCIPAL CONSULTING ENGINEER LEFT ROOM TO OBTAIN PAIN MEDICATIONS. PT WAS SITING UP IN BED EATING DINER, HEAD SIDE RAILS UP X2 WITH CALL LIGHT ON LAP.
--- NOTE | 2020-01-15 17:14 | NUR ---
PHONE CALL TO DR NO REGARDING CBG OF 240. NEW ORDER RECEIVED TO DC'D IV FLUIDS AND SALINE LOCK IV SITE.
--- NOTE | 2020-01-15 18:01 | NUR ---
REVIEWED ALL OF STUDENTS NURSE LYNETTE Fitch [facility] CHARTING AND AGREE WITH HIS ASSESSMENT AND CHARTING THIS SHIFT. STUDENT NURSE AND PATIENT HAVE BUILT A GOOD WORKING NURSE PATIENT RELATIONSHIP THIS SHIFT.
--- NOTE | 2020-01-15 19:30 | NUR ---
SHIFT REPORT RECIEVED FROM SN OJEDA AND ANNETTE ANDERSON. pt RATED PAIN 8/10, PRN PAIN MEDS GIVEN PER REQUEST/ORDER. pt REPOSITIONED AND NOW RESTING SAFELY IN BED WITH CALL LIGHT IN REACH, DENIES ANY FURTHER NEEDS AT THIS TIME. ICE WATER GIVEN.
--- NOTE | 2020-01-15 20:46 | NUR ---
IN THE PT ROOM, CHECKED VS, PT USED BED SIDE COMMODE 2 PERSON ASSISST, VOIDED. FLUSHED IV WITH 10 ML OF NS. ACCORDING TO "FACE PAIN SHEET" PT REPORTED PAIN 7-05/05. PRN AND SCHEDULED MEDICATIONS WERE GIVEN. SEE MAR. DONE WITH ASSESSMENT. PT BACK IN BED, HEAD OF THE BED ELEVATED UP TO 45 DEGREES. CALL LIGHT IN REACH.
--- NOTE | 2020-01-15 21:28 | NUR ---
pt ASSESSMENT COMPLETE, VS AND I+O's COMPLETE, PAULA/CATH CARE COMPLETE, DESITIN APPLIED TO PAULA AREA AND BUTTOCKS, DRSG CHANGE FOR LEFT FOOT COMPLETE, PM MEDS GIVEN PER ORDER, ICE WATER AND DIET SODA GIVEN PER REQUEST. pt REPOSITIONED AND RESTING SAFELY IN BED WITH CALL LIGHT IN REACH. MD NOTIFIED BY PHONE OF BG, NEW ORDERS RECEIVED AND CONFIRMED USING REPEAT BACK METHOD.
--- NOTE | 2020-01-15 23:27 | NUR ---
pt RESTING SAFELY IN BED EYES CLOSED, RR EVEN AND UNLABORED, CALL LIGHT IN REACH.
--- NOTE | 2020-01-16 01:39 | NUR ---
pt RATED PAIN 8/10, PRN PAIN MEDS GIVEN PER REQUEST/ORDER. pt ALSO ASKED FOR HIS BLOOD SUGAR TO BE CHECKED HE STATED THAT HIS MOUTH FELT VERY DRY. MD CALLED AND NOTIFIED OF pt's BG RESULTS, NEW ORDER RECEIVED AND CONFIRMED USING REPEAT BACK METHOD. pt WAS REPOSITIONED IN BED RESTING SAFELY WITH CALL LIGHT IN REACH, FRESH ICE WATER GIVEN, DENIES ANY FURTHER NEEDS AT THIS TIME.
--- NOTE | 2020-01-16 03:39 | NUR ---
pt RESTING SAFELY IN BED WITH EYES CLOSED, RR EVEN AND UNLABORED, CALL LIGHT IN REACH.
--- NOTE | 2020-01-16 04:34 | NUR ---
pt CALLED FOR ASSISTANCE WITH REPOSITIONING. pt REPOSITIONED AND RESTING SAFELY IN BED WITH CALL LIGHT IN REACH, DENIES ANY FURTHER NEEDS AT THIS TIME.
--- NOTE | 2020-01-16 04:54 | NUR ---
pt RESTED WELL THROUGHOUT THE NIGHT, REPOSITIONED THROUGHOUT SHIFT AND GIVEN PRN PAIN MEDS PER REQUESTS/ORDER. MD NOTIFIED BY PHONE OF HIGH BG READINGS, ORDERS RECEIVED AND MEDS GIVEN FOR HYPERGLYCEMIA. DESITIN APPLIED TO PAULA AREA AND BUTTOCKS PER REQUEST/ORDER. SCROTAL EDEMA HAS DECREASED BUT STILL OBSERVABLE. BROWN WITH QS OUTPUT, NO INCONTINECE OF STOOL. DRSNG ON LEFT FOOT CHANGED PER ORDER. pt STATES HE IS FEELING BETTER AND HAS MORE STRENGTH.
--- NOTE | 2020-01-16 06:09 | NUR ---
0600 VS AND I+O's COMPLETED, pt REPOSITIONED IN BED, FRESH ICE WATER GIVEN. pt RESTING IN BED SAFELY WITH CALL LIGHT IN REACH, DENIES FURTHER NEEDS AT THIS TIME
--- NOTE | 2020-01-16 07:30 | NUR ---
RECEIVED REPORT FROM [facility]AG BUILDER [place]. PT STATES THAT HE IS IN PAIN JEFFREY BRYANT PROVIDED PT WITH PAIN MEDS. NO OTHER CONCERNS AT THIS TIME
--- NOTE | 2020-01-16 07:50 | NUR ---
Pt eating. Wants to go home today. Discussed I will call [facility] at [phone] to check if bed and will were authorized. I had spoke with his mom yesterday and she would like equipment in place prior to dc.
--- NOTE | 2020-01-16 08:30 | NUR ---
Discussed in [address] Zee. She plan on dc for this pt today following a void trial when catheter removed. Updated I spoke with [facility], hospital bed and will were authed and will be delivered this am. [facility] is already seeing this pt, but she will write new orders for SN/PT/OT. Would like blood sugar to be monitored closely as there are insulin changes.
[2020-01-16] MEDS ORDERED: DOXYCYCLINE HY100 MG PO (09:21)
[2020-01-16] MEDS ORDERED: LISINOPRIL5 MG PO (09:22)
[2020-01-16] MEDS ORDERED: LOPERAMIDE2 MG PO (09:22)
[2020-01-16] MEDS ORDERED: LANTUS100 UNITS/ SUB-Q (09:23)
[2020-01-16] MEDS ORDERED: HUMALOG100 UNITS/ SUB-Q (09:24)
[2020-01-16] MEDS ORDERED: CHOLESTYRAMINE R5 GM MISC (09:25)
--- NOTE | 2020-01-16 09:30 | NUR ---
PER VERBAL ORDER FROM DISCONTINUED PTS BROWN CATHETER. EDUCATED PT ABOUT HAVING A BROWN TAKEN OUT
--- NOTE | 2020-01-16 10:17 | NUR ---
Order recieved for for Alin. Progress notes, H&P, Discharge summary, orders, sent to [facility]. Pt is currently on their service.
--- NOTE | 2020-01-16 11:00 | NUR ---
CHECKED ON PT. CALL LIGHT WITHIN REACH. PT SITTING ON EDGE OF BED. PT STATES THAT HE HASN'T BEEN ABLE TO PEE YET. PT APPEARED TO BE A BIT DEVASTED THAT HE WASN'T ABLE PEE, DISCUSSED WITH PT THAT IT IS NORMAL TO HAVE BLADDER SPASMS AFTER THE REMOVAL OF A BROWN CATHETER. DISCUSSED WITH PT THAT WE WILL DO A BLADDER SCAN TO SEE IF THERE IS URINE IN THERE AND HOW MUCH TO EASE HIS MIND. PT AGREEABLE TO THIS
--- NOTE | 2020-01-16 11:00 | NUR ---
Spoke with Alin, he states he has attempted to void, but is unable to do so. Does not feel the need to void. Updated, I just spoke with is mom. Equipment has been delivered. She is going to buy sheets for the bed and will deliver his wc to the hospital for wc van transport to home. Mom states she will have everything ready for return to home by 1 pm. Let Alin know he can dc by wc van if he can void, if not he will need the gallo replaced. Understanding stated. Nurses updated for 1 pm dc.
--- NOTE | 2020-01-16 11:35 | NUR ---
USED BLADDER SCAN TO DETERMINE PTS URINE AMOUNT IN BLADDER. PT HAD 220ML AT THIS TIME
--- NOTE | 2020-01-16 12:50 | NUR ---
PT TO BE DC'D TODAY. HE IS SITTING ON S OF BED. OT HAD JUST LEFT AND PT. WAS GETTING READY TO COME IN. TOOK THE OPPORTUNITY TO ENCOURAGE PT. HE WAS VERY ALERT AND ORIENTED TODAY. PT IS FRIENDLY AND THANKED ME FOR CHECKING ON HIM. HE MENTIONED THAT HE IS FEELING PRETTY GOOD TODAY. GAVE BLESSING
--- NOTE | 2020-01-16 13:09 | NUR ---
BS = 91 AT THIS TIME
--- NOTE | 2020-01-16 13:23 | NUR ---
pt reports 7/10 pain RLE, AND GENERALIZED. PT TO SOON DISCHARGE AND WILL NEED TO BE TRANSFERED TO WHEELCHAIR AND TRANSPORTED HOME
== END 2020-01-16 15:30 | disposition home or self-care (01) ==
LOC: ED 02:49 → MS 02:50
PROVIDERS: ADMIT Student in an Organized Health Care Education/Training Program
DX: E10.649 Type 1 diabetes mellitus with hypoglycemia without coma (principal); E10.42 Type 1 diabetes mellitus with diabetic polyneuropathy; I12.9 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e 4 chronic kidney disease, or unspecified chronic kidney disease; E10.22 Type 1 diabetes mellitus with diabetic chronic kidney disease; N18.9 Chronic kidney disease, unspecified; D63.1 Anemia in chronic kidney disease; K21.9 Gastro-esophageal reflux disease without esophagitis; E10.43 Type 1 diabetes mellitus with diabetic autonomic (poly)neuropathy; K31.84 Gastroparesis; F17.210 Nicotine dependence, cigarettes, uncomplicated; E87.2 Acidosis; K52.9 Noninfective gastroenteritis and colitis, unspecified; S81.802A Unspecified open wound, left lower leg, initial encounter; S31.000A Unspecified open wound of lower back and pelvis without penetration into retroperitoneum, initial encounter; Z79.4 Long term (current) use of insulin; Z88.5 Allergy status to narcotic agent; X58.XXXA Exposure to other specified factors, initial encounter
CPT/HCPCS: 36415; 51702; 51798; 80048; 80053; 81001; 83735; 84100; 85025; 87493; 96361; 96372; 97110; 97140; 97162; 97165; 99285-25; 99406; G0378; J1650; J1815; J2540; J7030; J7121

== ENCOUNTER → 2020-02-15 | Emergency (ER) | payer OTHER ==
[~2020-02-15] VITALS: Ht 188 cm; Wt 68.2 kg
[~2020-02-15] MED LIST changes: +AUGMENTIN 875-1 EACH PO; +BASAGLAR K100 UNIT/1 SUB-Q; +CHOLESTYRAMINE R5 GM MISC; +DOXYCYCLINE HY100 MG PO; +GLUCAGON EMERGEN1 MG INJ; +HUMALOG100 UNITS/ SUB-Q; +LISINOPRIL5 MG PO; +LOPERAMIDE2 MG PO
--- OUTSIDE RECORDS SUMMARY | ~2020-02-15 | XMS | Encounter Summary ---
Demographics + + + | Address | [address] | | | [place] [address] | + + + | Home Phone | | + + + | Preferred Language | Unknown | + + + | Marital Status | Single | + + + | Rastafari Affiliation | NON | + + + | Race | White | + + + | Ethnic Group | Not or | + + + Author + + + | Author | [facility] | + + + | Organization | [facility] | + + + | Address | Unknown | + + + | Phone | Unavailable | + + + Support + + + + + | Name | Relationship | Address | Phone | + + + + + | Samantha Ramos | ECON | [address] | | | | | [place] | | | | | [address] | | + + + + + Care Team Providers + +------+ + | Care Bacon De Rinder Name | Role | Phone | + +------+ + | Neri Mojica MD | PCP | | + +------+ + Encounter Details +--------+ + + + + | Date | Type | Department | Care Team | Description | +--------+ + + + + | 10/13/ | Procedure - | [facility]ive [facility] | Record, Operation | Operative Report | | 2006 | | [place] [facility] [address] | | | | | Transcribed | [address] | | | | | | Mailcode: [facility] | | | | [facility] | | | | | | [facility], [address] | | | | | | [facility] [place] | | | | | | [address] | | | | | | [phone] | | | +--------+ + + + [...] + + documented as of this encounter Plan of Treatment Not on filedocumented as of this encounter Procedures + +--------+ + + + | Procedure Name | Priori | Date/Time | Associated Diagnosis | Comments | | | ty | | | | + +--------+ + + + | OPERATION RECORD | | 10/13/2006 | | Results for this | | | | 12:00 AM | | procedure are in the | | | | PST | | results section. | + +--------+ + + + documented in this encounter Results OPERATION RECORD (10/13/2006 12:00 AM PST) + + | Procedure Note | + + | 10/13/2006 12:00 AM PST | | [id number] | | [id number] [place]ACEY Durbin [id number] | | | | Date: 10/13/2006 | | | | Attending Surgeon: Neri Mcgarry M.D., Ph.D. | | | | Photovoltaic Technician(s): Stefano Clements M.D. | | | | Preoperative Diagnosis(es): | | Osteochondral defect, right capitulum. | | | | Postoperative Diagnosis(es): | | Osteochondral defect, right capitulum, with free body and joint. | | | | Procedures Performed: | | Removal of free bodies from right elbow joint. | | | | Anesthesia: | | General. | | | | Estimated Blood Loss: | | Less than 10 mL. | | | | Complications: | | None apparent. | | | | Tourniquet Time: | | 37 minutes. | | | | Specimens: | | Synovium and a cartilaginous mass from right elbow joint. | | | | Drains: | | None. | | | | Findings: | | There was a very large amount of the inflammation within the elbow joint. | | The radial head appeared to be smooth with no evidence of articular damage. | | The capitulum had a defect, approximately 5 mm in circumference, that had | | filled in with a fibrocartilage with irregular surface. | | | | Procedure: | | The patient was properly identified and taken to the operating room. He | | was placed in a supine position. He was given an upper extremity block. | | He was prepped and draped in usual fashion for an approach to the right | | elbow. The tourniquet was placed on the right arm. After gravity | | exsanguination, the tourniquet was inflated. An incision was made on the | | lateral side of the arm directly at the radiocapitellar joint which came | | through the subcutaneous tissue with electrocautery. The joint capsule was | | opened to provide access to the radial head and the capitulum. These were | | inspected. The radial head appeared to be intact. The capitulum had a | | smooth overall surface that was quite irregular in the area of the | | osteochondral defect. There was a significant filling in of | | fibrocartilage. The synovium was very irritated and inflamed. There were | | multiple small pieces of cartilage embedded within the synovium surrounding | | the radiocapitellum joint. The joint was irrigated with saline. A | | high-speed chucho was then used to go over the fibrocartilage and make it a | | smooth surface with the remaining cartilaginous surface. A rongeur was | | then used to remove the free bodies that were embedded in the irritated | | synovium. A small area of the synovium was resected. The wound was then | | irrigated again with normal saline. The joint capsule was repaired with | | 2-0 Vicryl, subcutaneous tissue with 2-0 Vicryl, and the skin with a | | running 3-0 Vicryl. The dressings consisted of Steri-Strips, Xeroform, | | flats, and Mark bandage. The patient was then awakened and returned to the | | recovery room in a stable condition. | | | | Postoperative Plan: | | The patient should have a hinged elbow brace that I would like him to wear | | at all times. He should be discharged when stable. He can follow up with | | me in 6 weeks. | | | | | | | | | | Neri Mcgarry M.D., Ph.D. | | | | [facility] / | | [phone] / [id number] / [id number] / [id number] | | | | | | | | | | | | Electronically signed by Neri Mcgarry 10-24-2006 04:46:26 PM | | | | | + + documented in this encounter Visit Diagnoses Not on filedocumented in this encounter"
--- OUTSIDE RECORDS SUMMARY | ~2020-02-15 | XMS | Encounter Summary ---
Demographics + + + | Address | [address] | | | [place] [address] | + + + | Home Phone | | + + + | Preferred Language | Unknown | + + + | Marital Status | Single | + + + | Mandaen Affiliation | NON | + + + | Race | White | + + + | Ethnic Group | Not or | + + + Author + + + | Author | [facility] | + + + | Organization | [facility] | + + + | Address | Unknown | + + + | Phone | Unavailable | + + + Support + + + + + | Name | Relationship | Address | Phone | + + + + + | Samantha Ramos | ECON | [address] | | | | | [place] | | | | | [address] | | + + + + + Care Team Providers + +------+ + | Care C Application Developer Name | Role | Phone | + +------+ + PCP | Unavailable | + +------+ + Encounter Details +--------+ + + + + | Date | Type | Department | Care Team | Description | +--------+ + + + + | 08/27/ | Abstract | Pediatric | Ashanti Roque, | | | 2004 | | Endocrinology at | [address] | | | | | [place] | [address] | | | | | [facility] | [place], [place] | | | | | [address] | [address] | | | | | [place] | [phone] | | | | | [place], [place] | | | | | | [address] | | | | | | [phone] | | | +--------+ + + + [...] | + +--------+ + + + | HEMOGLOBIN A1C, | Routin | 08/27/2005 | | Results for this | | BLOOD | e | 1:44 PM | | procedure are in the | | | | PST | | results section. | + +--------+ + + + documented in this encounter Results HEMOGLOBIN A1C (08/27/2005 1:44 PM PST) + + + + + + | Component | Value | Ref Range | Performed | Pathologist | | | | | At | Signature | + + + + + + | HEMOGLOBIN | 10.1 (A) | 4.2 - 5.6 % | [facility] | | | A1C | | | OF CARE | | | | | | TESTS | | + + + + + + + + | Specimen | + + | Blood | + + + + + + + | Performing | Address | City/State/Zipcode | Phone Number | | Organization | | | | + + + + + | [facility] | [address] | [place], [place] | | | [facility] | [address] | [address] | | | TESTS | | | | + + + + + | [facility] | [address] | [place], [place] | | | TESTS | [facility] | [address] | | + + + + + documented in this encounter Visit Diagnoses Not on filedocumented in this encounter"
--- OUTSIDE RECORDS SUMMARY | ~2020-02-15 | XMS | Encounter Summary ---
Demographics + + + | Address | [address] | | | [place] [address] | + + + | Home Phone | | + + + | Preferred Language | Unknown | + + + | Marital Status | Single | + + + | Protestant Affiliation | Unknown | + + + | Race | Unknown | + + + | Ethnic Group | Unknown | + + + Author + + + | Author | [facility] | | | and [place] | + + + | Organization | [facility] | | | and [place] | + + + | Address | Unknown | + + + | Phone | Unavailable | + + + Support + + + + + | Name | Relationship | Address | Phone | + + + + + | Gia Ramos | ECON | [address] | | | | [address] [place] | | | | | [address] | | + + + + + Care Team Providers + +------+ + | Care Emergency Services Dispatcher Name | Role | Phone | + +------+ + | Erich Yates | PCP | | + +------+ + Encounter Details +--------+ + + + + | Date | Type | Department | Care Team | Description | +--------+ + + + + | 02/28/ | Documentati | [facility] [place] | [facility], | | | 2019 | on | GASTROENTEROLOGY | DANA [address] | | | | | [address] [place] | [place], [address] | | | | | [address] [place], [place] | [place], [place] | | | | | [address] | [address] | | | | | [phone] | | | +--------+ + + + [...] documented as of this encounter Progress Notes Kay Sterling CMA - 02/28/2019 8:47 AM PDTReceived notice from [facility]. It states they have made several attempts to contact the patient an d he has not returned any of their calls. They will be discontinuing their efforts to contac t patient. document ed in this encounter Plan of Treatment +--------+ + + + + | Date | Type | Specialty | Care Team | Description | +--------+ + + + + | 03/03/ | Virtual | Nephrology | Winston Whitman MD | | | 2019 | Office | | [address] [facility] | | | | Visit | | [facility] | | | | | | [address] | | | | | | | | +--------+ + + + + documented as of this encounter Visit Diagnoses Not on filedocumented in this encounter"
--- OUTSIDE RECORDS SUMMARY | ~2020-02-15 | XMS | Encounter Summary ---
Demographics + + + | Address | [address] | | | [place] [address] | + + + | Home Phone | | + + + | Preferred Language | Unknown | + + + | Marital Status | Single | + + + | Hinduism Affiliation | NON | + + + | Race | White | + + + | Ethnic Group | Not or | + + + Author + + + | Author | [facility] | + + + | Organization | [facility] | + + + | Address | Unknown | + + + | Phone | Unavailable | + + + Support + + + + + | Name | Relationship | Address | Phone | + + + + + | Samantha Ramos | ECON | [address] | | | | | [place] | | | | | [address] | | + + + + + Care Team Providers + +------+ + | Care Finance Officer Name | Role | Phone | + +------+ + | Erich Yates PA-C | PCP | | + +------+ + Encounter Details +--------+ + + + + | Date | Type | Department | Care Team | Description | +--------+ + + + + | 10/13/ | Hospital | Registration [address] | Neri Mcgarry, | | | 2006 | Activity | [address] | [address] | | | | | [place] Mailcode: [id number] | [address] | | | | | [place], [place] | [place], [place] | | | | | [address] | [address] | | | | | [phone] | [phone] | | | | | | | [...] | + +--------+ + + + | SURGICAL PATHOLOGY | Routin | 10/13/2006 | | Results for this | | | e | | | procedure are in the | | | | | | results section. | + +--------+ + + + documented in this encounter Results SURGICAL PATHOLOGY (10/13/2006) + + + + + + | Component | Value | Ref Range | Performed | Pathologist | | | | | At | Signature | + + + + + + | SURGICAL | SOURCE OF SPECIMEN:A | | [facility] | | | PATHOLOGY | Right Capitulum and | | DEPARTMENT | | | | SynoviumSOURCE OF | | OF | | | | SPECIMEN:B Right | | PATHOLOGY | | | | Synovial Tissue Final | | | | | | Pathologic Diagnosis:A: | | | | | | Capitulum and | | | | | | synovium, right, free | | | | | | body removal: - | | | | | | Minute fragments of | | | | | | dense fibrous tissue | | | | | | (please see comment)B: | | | | | | Synovium, right, free | | | | | | body removal: - | | | | | | Synovium and dense | | | | | | fibrous connective | | | | | | tissue with focal | | | | | | chronicinflammation | | | | | | Comment: In the | | | | | | capitulum and synovium | | | | | | specimen (A), multiple | | | | | | fragments ofdense tissue | | | | | | were grossly | | | | | | identified. However, a | | | | | | hard fragment of | | | | | | tissuewas lost in the | | | | | | cutting process, and is | | | | | | thus no longer | | | | | | available | | | | | | forhistological | | | | | | evaluation. Case | | | | | | reviewed by:Francisco Javier | | | | | | Pauline /Student | | | | | | Luz Sanchez, | | | | | | Ph.D., M.D. | | | | | | /PathologistT:10/17/06 | | | | | | I have reviewed all | | | | | | diagnostic slides and | | | | | | have edited the gross | | | | | | and/ormicroscopic | | | | | | portion of this report | | | | | | as part of my pathologic | | | | | | assessment andfinal | | | | | | diagnosis. Clinical | | | | | | History:The patient is a | | | | | | 15-year-old boy with | | | | | | right humeral mass. | | | | | | Per LCRWeb:There was a | | | | | | very large amount of | | | | | | the inflammation within | | | | | | the elbow joint.The | | | | | | radial head appeared to | | | | | | be smooth with no | | | | | | evidence of articular | | | | | | damage.The capitulum had | | | | | | a defect, approximately | | | | | | 5 mm in circumference, | | | | | | that hadfilled in with a | | | | | | fibrocartilage with | | | | | | irregular surface. Gross | | | | | | Description:Two | | | | | | specimens are received | | | | | | fresh in containers with | | | | | | the patient's | | | | | | initialsAI. A: Right | | | | | | capitulum and synovium: | | | | | | Received are four | | | | | | irregular, | | | | | | translucentgray-white, | | | | | | rubbery tissues that | | | | | | measure 0.3 x 0.3 x 0.2 | | | | | | cm in aggregate.The | | | | | | specimen is submitted in | | | | | | toto. B: Right | | | | | | synovial tissue: | | | | | | Received are several | | | | | | heavily cauterized, | | | | | | palepink-red tissues | | | | | | measuring 1.7 x 1.3 x | | | | | | 0.5 cm in aggregate. | | | | | | The specimenis | | | | | | submitted in toto. | | | | | | Cassette Index:A: | | | | | | Right capitulum and | | | | | | synovium:A1, wrappedB: | | | | | | Right synovial | | | | | | tissue:B1, multiple | | | | | | tissuesJK:EJD:labRenderi | | | | | | ng Diagnostician: | | | | | | Alana Sanchez Ph.D., | | | | | | | | | | | | M.D.PathologistElectroni | | | | | | marcos Signed 10/18/2006 | | | | + + + + + + + + | Specimen | + + | | + + + + + + + | Performing | Address | City/State/Zipcode | Phone Number | | Organization | | | | + + + + + | [facility] | [address] | [place] [address] | | | PATHOLOGY | ZENA CROOKS | | | + + + + + | [facility] | [address] | [place] [address] | | | PATHOLOGY | [address]ENA CROOKS | | | + + + + + documented in this encounter Visit Diagnoses Not on filedocumented in this encounter"
--- OUTSIDE RECORDS SUMMARY | ~2020-02-15 | XMS | Encounter Summary ---
Demographics + + + | Address | [address] | | | [place] [address] | + + + | Home Phone | | + + + | Preferred Language | Unknown | + + + | Marital Status | Single | + + + | Samaritan Affiliation | Unknown | + + + | Race | Unknown | + + + | Ethnic Group | Unknown | + + + Author + + + | Author | [facility] | | | and [place] | + + + | Organization | [facility] | | [...] [place] | | | | | [address] | | + + + + + Care Team Providers + +------+ + | Care People Greeter Name | Role | Phone | + +------+ + | Erich Yates | PCP | | + +------+ + Encounter Details +--------+ + + + + | Date | Type | Department | Care Team | Description | +--------+ + + + + | 02/01/ | Abstract | [facility] | Divya, | | | 2018 | | GASTROENTEROLOGY | MD [address] | | | | | [address] [facility] | [place] | | | | | [address] [place] | [place] [address] | | | | | [address] | | | | | | [phone] | | | +--------+ + + + [...] 2019 | Office | | [address] [facility] | | | | Visit | | [address] [place] | | | | | | [address] | | | | | | | | +--------+ + + + + documented as of this encounter Procedures + +--------+ + + + | Procedure Name | Priori | Date/Time | Associated Diagnosis | Comments | | | ty | | | | + +--------+ + + + | EXTERNAL LAB: YARIEL | Routin | 01/21/2019 | | Results for this | | | e | | | procedure are in the | | | | | | results section. | + +--------+ + + + | EXTERNAL LAB: | Routin | 01/21/2019 | | Results for this | | GLUCOSE | e | | | procedure are in the | | | | | | results section. | + +--------+ + + + | EXTERNAL LAB: LIPASE | Routin | 01/21/2019 | | Results for this | | | e | | | procedure are in the | | | | | | results section. | + +--------+ + + + | EXTERNAL LAB: ALT | Routin | 01/21/2019 | | Results for this | | | e | | | procedure are in the | | | | | | results section. | + +--------+ + + + | EXTERNAL LAB: AST | Routin | 01/21/2019 | | Results for this | | | e | | | procedure are in the | | | | | | results section. | + +--------+ + + + | EXTERNAL LAB: | Routin | 01/21/2019 | | Results for this | | ALKALINE PHOSPHATASE | e | | | procedure are in the | | | | | | results section. | + +--------+ + + + | EXTERNAL LAB: | Routin | 01/21/2019 | | Results for this | | BILIRUBIN, TOTAL | e | | | procedure are in the | | | | | | results section. | + +--------+ + + + | EXTERNAL LAB: | Routin | 01/21/2019 | | Results for this | | ALBUMIN | e | | | procedure are in the | | | | | | results section. | + +--------+ + + + | EXTERNAL LAB: | Routin | 01/21/2019 | | Results for this | | PROTEIN, TOTAL | e | | | procedure are in the | | | | | | results section. | + +--------+ + + + | EXTERNAL LAB: | Routin | 01/21/2019 | | Results for this | | CALCIUM | e | | | procedure are in the | | | | | | results section. | + +--------+ + + + | EXTERNAL LAB: CARBON | Routin | 01/21/2019 | | Results for this | | DIOXIDE | e | | | procedure are in the | | | | | | results section. | + +--------+ + + + | EXTERNAL LAB: | Routin | 01/21/2019 | | Results for this | | CHLORIDE | e | | | procedure are in the | | | | | | results section. | + +--------+ + + + | EXTERNAL LAB: | Routin | 01/21/2019 | | Results for this | | POTASSIUM | e | | | procedure are in the | | | | | | results section. | + +--------+ + + + | EXTERNAL LAB: SODIUM | Routin | 01/21/2019 | | Results for this | | | e | | | procedure are in the | | | | | | results section. | + +--------+ + + + | EXTERNAL LAB: | Routin | 01/21/2019 | | Results for this | | URINALYSIS | e | | | procedure are in the | | | | | | results section. | + +--------+ + + + | EXTERNAL LAB: PAYTON | Routin | 01/21/2019 | | Results for this | | | e | | | procedure are in the | | | | | | results section. | + +--------+ + + + | EXTERNAL LAB: PAYTON | Routin | 01/21/2019 | | Results for this | | | e | | | procedure are in the | | | | | | results section. | + +--------+ + + + | EXTERNAL LAB: SYLVE[place] | Routin | 01/21/2019 | | Results for this | | | e | | | procedure are in the | | | | | | results section. | + +--------+ + + + | EXTERNAL LAB: | Routin | 01/21/2019 | | Results for this | | CREATININE | e | | | procedure are in the | | | | | | results section. | + +--------+ + + + | BLOOD GAS, ARTERIAL | Routin | 01/21/2019 | | Results for this | | | e | | | procedure are in the | | | | | | results section. | + +--------+ + + + | TOXICOLOGY SCREEN | Routin | 01/21/2019 | | Results for this | | | e | | | procedure are in the | | | | | | results section. | + +--------+ + + + | URINALYSIS, REFLEX | Routin | 01/21/2019 | | Results for this | | MICROSCOPIC AND/OR | e | | | procedure are in the | | CULTURE | | | | results section. | + +--------+ + + + | KETONES,SERUM | Routin | 01/21/2019 | | Results for this | | | e | | | procedure are in the | | | | | | results section. | + +--------+ + + + | CBC WITH | Routin | 01/21/2019 | | Results for this | | DIFFERENTIAL | e | | | procedure are in the | | | | | | results section. | + +--------+ + + + | CULTURE, URINE | Routin | 01/21/2019 | | Results for this | | | e | | | procedure are in the | | | | | | results section. | + +--------+ + + + | LACTIC ACID | Routin | 01/21/2019 | | Results for this | | | e | | | procedure are in the | | | | | | results section. | + +--------+ + + + | COMPREHENSIVE | Routin | 01/21/2019 | | Results for this | | METABOLIC PANEL | e | | | procedure are in the | | | | | | results section. | + +--------+ + + + documented in this encounter Results Blood Gas, Arterial (01/21/2019) + + + + + + | Component | Value | Ref Range | Performed | Pathologist | | | | | At | Signature | + + + + + + | pH: | 7.37 | 7.35 - 7.45 | | | + + + + + + | PCO2 | 36.1 | 32 - 45 | | | + + + + + + | HCO3, | 20.5 | 20.0 - 26.0 | | | | Arterial | | mmol/L | | | + + + + + + | TCO2, | 22 | 19 - 25 mmol/L | | | | Arterial, | | | | | | POC | | | | | + + + + + + | O2 | 98.8 | 95 - 100 | | | | SATURATION | | | | | | CALCULATED | | | | | + + + + + + | PO2 | 108 (A) | 75 - 100 | | | + + + + + + | Other | -3Comment: MESSI | -3 - 3 | | | + + + + + + + + | Specimen | + + | Blood | + + CBC with Differential (01/21/2019) + +-------+ + + + | Component | Value | Ref Range | Performed | Pathologist | | | | | At | Signature | + +-------+ + + + | MCH | 30 | 27 - 33 | | | + +-------+ + + + | MCHC | 33 | 30 - 36 | | | + +-------+ + + + | Basophils % | 0.5 | 0 - 2 | | | + +-------+ + + + + + | Specimen | + + | Blood | + + Lactic Acid (01/21/2019) + +-------+ + + + | Component | Value | Ref Range | Performed | Pathologist | | | | | At | Signature | + +-------+ + + + | Result | 1.1 | 0.5 - 2.2 | | | + +-------+ + + + + + | Specimen | + + | Blood | + + Ketones, Serum (01/21/2019) + + + + + + | Component | Value | Ref Range | Performed | Pathologist | | | | | At | Signature | + + + + + + | Ketones, | Negative | | | | | Blood | | | | | + + + + + + + + | Specimen | + + | Blood | + + Comprehensive Metabolic Panel (01/21/2019) + +-------+ + + + | Component | Value | Ref Range | Performed | Pathologist | | | | | At | Signature | + +-------+ + + + | Anion Gap | 11 | 7 - 21 mmol/L | | | + +-------+ + + + | BUN/Creatin | 11.1 | 6 - 28.6 | | | | ine Ratio | | | | | + +-------+ + + + | Globulin | 3 | 1.8 - 3.5 | | | + +-------+ + + + | Albumin/[place] | 1 (A) | 1.1 - 2.4 | | | | bulin Ratio | | | | | + +-------+ + + + + + | Specimen | + + | Blood | + + Toxicology Screen (01/21/2019) + + + + + + | Component | Value | Ref Range | Performed | Pathologist | | | | | At | Signature | + + + + + + | THC RESULT | Positive | | | | + + + + + + | Cocaine | None Detected | | | | + + + + + + | Opiates | Positive | | | | + + + + + + | Amphetamine | Negative | | | | | s | | | | | + + + + + + | Methampheta | None Dectected | | | | | mine | | | | | + + + + + + | PCP Screen, | None Detected | | | | | Urine (25 | | | | | | NG/ML) | | | | | + + + + + + | MDMA | None Detected | | | | + + + + + + | Barbiturate | None Detected | | | | | s Screen, | | | | | | Urine | | | | | + + + + + + | Benzodiazep | None Detected | | | | | alan | | | | | | Screen, | | | | | | Urine | | | | | + + + + + + | Methadone | None Detected | | | | | Screen, | | | | | | Urine | | | | | + + + + + + | Tricyclics, | Negative | Negative | | | | UR | | | | | + + + + + + | Oxycodone | None Detected | | | | + + + + + + | Buprenorphi | None Detected | | | | | ne | | | | | + + + + + + + + | Specimen | + + | Blood | + + Urinalysis, Reflex Microscopic and/or Culture (01/21/2019) + + + + + + | Component | Value | Ref Range | Performed | Pathologist | | | | | At | Signature | + + + + + + | COLLECTION | Clean catch | | | | | METHOD 1 | | | | | + + + + + + | Color | yellow | | | | + + + + + + | Bilirubin, | Negative | Negative | | | | Urine | | | | | + + + + + + | CASTS | Negative | | | | + + + + + + | WBC | 30 (A) | 0 - 4 | | | + + + + + + | Clarity | Clear | | | | + + + + + + | Nitrite, | Negative | Negative | | | | Urine | | | | | + + + + + + | Urobilinoge | Normal | < 0.2 mg/dL, | | | | n, Urine | | 1.0 mg/dL, 4.0 | | | | | | mg/dL, Normal, | | | | | | 1.0 E.U./dL, | | | | | | 0.2 E.U./dL, | | | | | | 0.2 mg/dL, | | | | | | Negative, 1 | | | | | | mg/dL, <2.0 | | | | | | mg/dL | | | + + + + + + | Squamous | 1+ | | | | | epithelial, | | | | | | UA, POC | | | | | + + + + + + | CRYSTAL UA | Negative | | | | + + + + + + | Bacteria, | Negative | Negative /HPF | | | | Urine | | | | | + + + + + + + + | Specimen | + + | Urine | + + External Lab: CBC (01/21/2019) + +-------+ + + + | Component | Value | Ref Range | Performed | Pathologist | | | | | At | Signature | + +-------+ + + + | Neutrophils | 61.6 | 38 - 80 | EXTERNAL | | | %, | | | LAB | | | External | | | | | + +-------+ + + + | Lymphocytes | 26.8 | 24 - 44 | EXTERNAL | | | %, | | | LAB | | | External | | | | | + +-------+ + + + | Monocytes | 7.1 | 0 - 12 | EXTERNAL | | | %, External | | | LAB | | + +-------+ + + + | Eosinophils | 3.9 | 0 - 6 | EXTERNAL | | | %, | | | LAB | | | External | | | | | + +-------+ + + + + +---------+ + + | Performing | Address | City/State/Zipcode | Phone Number | | Organization | | | | + +---------+ + + | EXTERNAL LAB | | | | + +---------+ + + External Lab: YARIEL (01/21/2019) + +-------+ + + + | Component | Value | Ref Range | Performed | Pathologist | | | | | At | Signature | + +-------+ + + + | BUN, | 17 | 6 - 23 | EXTERNAL | | | External | | | LAB | | + +-------+ + + + + +---------+ + + | Performing | Address | City/State/Zipcode | Phone Number | | Organization | | | | + +---------+ + + | EXTERNAL LAB | | | | + +---------+ + + External Lab: Glucose (01/21/2019) + +---------+ + + + | Component | Value | Ref Range | Performed | Pathologist | | | | | At | Signature | + +---------+ + + + | Glucose, | 307 (A) | 70 - 100 | EXTERNAL | | | External | | | LAB | | + +---------+ + + + + +---------+ + + | Performing | Address | City/State/Zipcode | Phone Number | | Organization | | | | + +---------+ + + | EXTERNAL LAB | | | | + +---------+ + + External Lab: Lipase (01/21/2019) + +-------+ + + + | Component | Value | Ref Range | Performed | Pathologist | | | | | At | Signature | + +-------+ + + + | Lipase, | 25 | 11 - 82 | EXTERNAL | | | External | | | LAB | | + +-------+ + + + + +---------+ + + | Performing | Address | City/State/Zipcode | Phone Number | | Organization | | | | + +---------+ + + | EXTERNAL LAB | | | | + +---------+ + + External Lab: ALT (01/21/2019) + +-------+ + + + | Component | Value | Ref Range | Performed | Pathologist | | | | | At | Signature | + +-------+ + + + | ALT, | 27 | 7 - 52 | EXTERNAL | | | External | | | LAB | | + +-------+ + + + + +---------+ + + | Performing | Address | City/State/Zipcode | Phone Number | | Organization | | | | + +---------+ + + | EXTERNAL LAB | | | | + +---------+ + + External Lab: AST (01/21/2019) + +-------+ + + + | Component | Value | Ref Range | Performed | Pathologist | | | | | At | Signature | + +-------+ + + + | AST, | 26 | 13 - 38 | EXTERNAL | | | External | | | LAB | | + +-------+ + + + + +---------+ + + | Performing | Address | City/State/Zipcode | Phone Number | | Organization | | | | + +---------+ + + | EXTERNAL LAB | | | | + +---------+ + + External Lab: Alkaline Phosphatase (01/21/2019) + +-------+ + + + | Component | Value | Ref Range | Performed | Pathologist | | | | | At | Signature | + +-------+ + + + | ALP, | 109 | 31 - 120 | EXTERNAL | | | External | | | LAB | | + +-------+ + + + + +---------+ + + | Performing | Address | City/State/Zipcode | Phone Number | | Organization | | | | + +---------+ + + | EXTERNAL LAB | | | | + +---------+ + + External Lab: Bilirubin, Total (01/21/2019) + +-------+ + + + | Component | Value | Ref Range | Performed | Pathologist | | | | | At | Signature | + +-------+ + + + | Bilirubin, | 0.2 | 0 - 1.2 | EXTERNAL | | | Total, | | | LAB | | | External | | | | | + +-------+ + + + + +---------+ + + | Performing | Address | City/State/Zipcode | Phone Number | | Organization | | | | + +---------+ + + | EXTERNAL LAB | | | | + +---------+ + + External Lab: Albumin (01/21/2019) + +-------+ + + + | Component | Value | Ref Range | Performed | Pathologist | | | | | At | Signature | + +-------+ + + + | Albumin, | 3 (A) | 3.5 - 5 | EXTERNAL | | | External | | | LAB | | + +-------+ + + + + +---------+ + + | Performing | Address | City/State/Zipcode | Phone Number | | Organization | | | | + +---------+ + + | EXTERNAL LAB | | | | + +---------+ + + External Lab: Protein, Total (01/21/2019) + +-------+ + + + | Component | Value | Ref Range | Performed | Pathologist | | | | | At | Signature | + +-------+ + + + | Protein, | 6 | 6 - 8.3 | EXTERNAL | | | Total, | | | LAB | | | External | | | | | + +-------+ + + + + +---------+ + + | Performing | Address | City/State/Zipcode | Phone Number | | Organization | | | | + +---------+ + + | EXTERNAL LAB | | | | + +---------+ + + External Lab: Calcium (01/21/2019) + +-------+ + + + | Component | Value | Ref Range | Performed | Pathologist | | | | | At | Signature | + +-------+ + + + | Calcium, | 8.5 | 8.5 - 10.3 | EXTERNAL | | | External | | | LAB | | + +-------+ + + + + +---------+ + + | Performing | Address | City/State/Zipcode | Phone Number | | Organization | | | | + +---------+ + + | EXTERNAL LAB | | | | + +---------+ + + External Lab: Carbon Dioxide (01/21/2019) + +-------+ + + + | Component | Value | Ref Range | Performed | Pathologist | | | | | At | Signature | + +-------+ + + + | Carbon | 24 | 19 - 31 | EXTERNAL | | | Dioxide, | | | LAB | | | External | | | | | + +-------+ + + + + +---------+ + + | Performing | Address | City/State/Zipcode | Phone Number | | Organization | | | | + +---------+ + + | EXTERNAL LAB | | | | + +---------+ + + External Lab: Chloride (01/21/2019) + +-------+ + + + | Component | Value | Ref Range | Performed | Pathologist | | | | | At | Signature | + +-------+ + + + | Chloride, | 107 | 95 - 112 | EXTERNAL | | | External | | | LAB | | + +-------+ + + + + +---------+ + + | Performing | Address | City/State/Zipcode | Phone Number | | Organization | | | | + +---------+ + + | EXTERNAL LAB | | | | + +---------+ + + External Lab: Potassium (01/21/2019) + +-------+ + + + | Component | Value | Ref Range | Performed | Pathologist | | | | | At | Signature | + +-------+ + + + | Potassium, | 4.5 | 3.6 - 5.1 | EXTERNAL | | | External | | | LAB | | + +-------+ + + + + +---------+ + + | Performing | Address | City/State/Zipcode | Phone Number | | Organization | | | | + +---------+ + + | EXTERNAL LAB | | | | + +---------+ + + External Lab: Sodium (01/21/2019) + +-------+ + + + | Component | Value | Ref Range | Performed | Pathologist | | | | | At | Signature | + +-------+ + + + | Sodium, | 137 | 132 - 143 | EXTERNAL | | | External | | | LAB | | + +-------+ + + + + +---------+ + + | Performing | Address | City/State/Zipcode | Phone Number | | Organization | | | | + +---------+ + + | EXTERNAL LAB | | | | + +---------+ + + External Lab: Urinalysis (01/21/2019) + + + + + + | Component | Value | Ref Range | Performed | Pathologist | | | | | At | Signature | + + + + + + | UA Blood, | Moderate | | EXTERNAL | | | External | | | LAB | | + + + + + + | UA Glucose, | Large | | EXTERNAL | | | External | | | LAB | | + + + + + + | UA Ketones, | Negative | | EXTERNAL | | | External | | | LAB | | + + + + + + | UA Ph, | 5 | 5 - 9 | EXTERNAL | | | External | | | LAB | | + + + + + + | UA | >300 | | EXTERNAL | | | Proteins, | | | LAB | | | External | | | | | + + + + + + | UA RBC, | 0 | 0 - 4 | EXTERNAL | | | External | | | LAB | | + + + + + + | UA Specific | 1.016 | 1.005 - 1.03 | EXTERNAL | | | [place], | | | LAB | | | External | | | | | + + + + + + | UA | Negative | | EXTERNAL | | | Leukocyte | | | LAB | | | Esterase, | | | | | | External | | | | | + + + + + + + +---------+ + + | Performing | Address | City/State/Zipcode | Phone Number | | Organization | | | | + +---------+ + + | EXTERNAL LAB | | | | + +---------+ + + External Lab: CBC (01/21/2019) + + + + + + | Component | Value | Ref Range | Performed | Pathologist | | | | | At | Signature | + + + + + + | WBC, | 9.8 | 4.6 - 11 | EXTERNAL | | | External | | | LAB | | + + + + + + | HGB, | 11.6 (A) | 13.5 - 18 | EXTERNAL | | | External | | | LAB | | + + + + + + | HCT, | 36.6 (A) | 41 - 50 | EXTERNAL | | | External | | | LAB | | + + + + + + | PLT, | 258 | 140 - 440 | EXTERNAL | | | External | | | LAB | | + + + + + + | RBC, | 3.87 (A) | 4.3 - 5.7 | EXTERNAL | | | External | | | LAB | | + + + + + + | MCV, | 91 | 81 - 99 | EXTERNAL | | | External | | | LAB | | + + + + + + | RDW, | 18.8 (A) | 81 - 99 | EXTERNAL | | | External | | | LAB | | + + + + + + + +---------+ + + | Performing | Address | City/State/Zipcode | Phone Number | | Organization | | | | + +---------+ + + | EXTERNAL LAB | | | | + +---------+ + + External Lab: eGFR (01/21/2019) + +--------+ + + + | Component | Value | Ref Range | Performed | Pathologist | | | | | At | Signature | + +--------+ + + + | eGFR, | 54 (A) | 60 - 9,999 | EXTERNAL | | | External | | | LAB | | + +--------+ + + + + + | Specimen | + + | Blood | + + + +---------+ + + | Performing | Address | City/State/Zipcode | Phone Number | | Organization | | | | + +---------+ + + | EXTERNAL LAB | | | | + +---------+ + + External Lab: Creatinine (01/21/2019) + + + + + + | Component | Value | Ref Range | Performed | Pathologist | | | | | At | Signature | + + + + + + | Creatinine, | 1.68 (A) | 0.6 - 1.35 | EXTERNAL | | | External | | | LAB | | + + + + + + + + | Specimen | + + | Blood | + + + +---------+ + + | Performing | Address | City/State/Zipcode | Phone Number | | Organization | | | | + +---------+ + + | EXTERNAL LAB | | | | + +---------+ + + Culture, Urine (01/21/2019) + + + + + + | Component | Value | Ref Range | Performed | Pathologist | | | | | At | Signature | + + + + + + | Result | 01-22-19 no growth after | | | | | | overnight incubation | | | | + + + + + + | Result | 01-23-19 no growth after | | | | | | further incubation. | | | | + + + + + + + + | Specimen | + + | Urine | + + documented in this encounter Visit Diagnoses Not on filedocumented in this encounter"
--- OUTSIDE RECORDS SUMMARY | ~2020-02-15 | XMS | Encounter Summary ---
Demographics + + + | Address | [address] | | | [place] [address] | + + + | Home Phone | | + + + | Preferred Language | Unknown | + + + | Marital Status | Single | + + + | Jehovah'S Witness Affiliation | Unknown | + + + | Race | Unknown | + + + | Ethnic Group | Unknown | + + + Author + + + | Author | [facility] | | | and [place] | + + + | Organization | [facility] | | | and [place] | + + + | Address | Unknown | + + + | Phone | Unavailable | + + + Support + + + + + | Name | Relationship | Address | Phone | + + + + + | Gia Ramos | ECON | [address] | | | | | [id number] | | | | | [address] | | + + + + + Care Team Providers + +------+ + | Care Video Control Operator Name | Role | Phone | [...] + + + + | 09/19/ | Hospital | [facility] | Tc Mora | Right ureteral | | 2018 - | Encounter | [facility] | MD [address] | stone; Acute kidney | | | | [address] | [address] [place] | injury (HCC); Flank | | 09/20/ | | [place] [address] | [id number] | pain; | | 2017 | | [phone] | | Hydronephrosis, | | | | | | unspecified | | | | | | hydronephrosis type; | | | | | | Hyperkalemia | +--------+ + + + + Social [...] + + + | Blood Pressure | 130/70 | 09/20/2018 11:25 AM | | | | | PST | | + + + + + | Pulse | 120 | 09/20/2018 11:25 AM | | | | | PST | | + + + + + | Temperature | 36.3 C (97.3 F) | 09/20/2018 11:25 AM | | | | | PST | | + + + + + | Respiratory Rate | 20 | 09/20/2018 11:25 AM | | | | | PST | | + + + + + | Oxygen Saturation | 99% | 09/20/2018 11:25 AM | | | | | PST | | + + + + + | Inhaled Oxygen | - | - | | | Concentration | | | | + + + + + | Weight | 65.2 kg (143 lb 11.8 | 09/19/2018 7:32 PM | | | | oz) | PST | | + + + + + | Height | 188 cm (6' 2") | 09/19/2018 7:32 PM | | | | | PST | | + + + + + | Body Mass Index | 18.46 | 09/19/2018 7:32 PM | | | | | PST [...] + + documented as of this encounter Medications at Time of Discharge + + + +---------+ + + | Medication | Sig | Dispensed | Refills | Start | End Date | | | | | | Date | | + + + +---------+ + + | furosemide (LASIX) | Take 40 mg by mouth | | 0 | | | | 40 mg tablet | 2 times daily. | | | | | + + + +---------+ + + | GLUCAGON [facility]Y | Inject 1 mg into the | | 0 | 10/25/20 | | | 1 MG injection | muscle once. | | | 18 | | + + + +---------+ + + | insulin lispro | Inject under the | | 0 | | | | (HUMALOG KWIKPEN) | skin 3 times daily | | | | | | 100 units/mL | (before meals) and | | | | | | injection (pen) | at night 1 unit for | | | | | | | every 10 carbs | | | | | + + + +---------+ + + | lisinopril | Take 1 tablet by | | 0 | 09/16/20 | | | (PRINIVIL, ZESTRIL) | mouth 2 times daily. | | | 18 | | | 10 mg tablet | | | | | | + + + +---------+ + + | metoprolol | Take 75 mg by mouth | | 0 | | | | tartrate (LOPRESSOR) | 2 times daily. | | | | | | 50 mg tablet | | | | | | + + + +---------+ + + | ondansetron | Take 8 mg by mouth | | 0 | | | | (ZOFRAN ODT) 8 mg | every 8 hours as | | | | | | disintegrating | needed for Nausea. | | | | | | tablet | | | | | | + + + +---------+ + + | cephalexin | | | 0 | 04/16/20 | | | (KEFLEX) 500 mg | | | | 18 | 9 | | capsule | | | | | | + + + +---------+ + + | dicyclomine | | | 0 | 05/25/20 | | | (BENTYL) 20 MG | | | | 18 | 0 | | tablet | | | | | | + + + +---------+ + + | EQ PAIN RELIEVER | | | 0 | 05/24/20 | | | 325 MG tablet | | | | 18 | 9 | + + + +---------+ + + | | Take 1 tablet by | | 0 | | | | HYDROcodone-acetamin | mouth every 6 hours | | | | 0 | | ophen (NORCO) | as needed for Pain. | | | | | | 7.5-325 mg per | | | | | | | tablet | | | | | | + + + +---------+ + + | insulin glargine | Inject 20 Units | | 0 | | | | (LANTUS SOLOSTAR) | under the skin | | | | 0 | | 100 units/mL | nightly. | | | | | | injection (pen) | | | | | | + + + +---------+ + + | KLOR-CON M10 10 | | | 0 | 05/01/20 | | | MEQ ER tablet | | | | 18 | 9 | + + + +---------+ + + | omeprazole | | | 0 | 05/23/20 | | | (PRILOSEC) 20 mg | | | | 18 | 9 | | capsule | | | | | | + + + +---------+ + + | ondansetron | | | 0 | 04/29/20 | | | (ZOFRAN) 8 MG tablet | | | | 18 | 9 | + + + +---------+ + + | phytonadione | Take 100 mcg by | | 0 | | | | (PHYTONADIONE) 100 | mouth 2 times daily. | | | | 9 | | MCG TABS | | | | | | + + + +---------+ + + | promethazine | | | 0 | 05/25/20 | | | (PHENERGAN) 25 mg | | | | 18 | 9 | | tablet | | | | | | + + + +---------+ + + | raNITIdine | Take 1 tablet by | | 0 | 09/10/20 | | | (ZANTAC) 150 mg | mouth 2 times daily. | | | 18 | 9 | | tablet | | | | | | + + + +---------+ + + documented as of this encounter Progress Notes Tc Mora MD - 09/20/2018 8:23 AM PSTFormatting of this note might be differ ent from the original. [facility] Urology Progress Note Brooks Marquez is now POD # 1 s/p right ureteral stent placement IMPRESSION: Hyperkalemia, Chronic kidney disease, obstructing ureteral stone PLAN: Allergen orders were written to address the hyperkalemia. Patient was given a gram of calc ium gluconate, albuterol nebulizer treatment, 10 units of intravenous insulin along with an amp of D50. An urgent consult was placed with the hospitalist for management of acute hyperkalemia. Addendum Later that day the patient became extremely belligerent and reportedly had an argument with the hospitalist and through his lunch at him. He later left the hospital against medical a dvice. Arrangements will need to be made to have the ureteral stent removed. SUBJECTIVE: Pain is adequately controlled. Patient is passing flatus. Patient does not complain of nausea. Currently tolerating diet well. No complaints of chest pain or SOB. Scheduled Meds: acetaminophen 1,000 mg Oral 3 times per day albuterol 5 mg Nebulization Once dextrose 25 g Intravenous Once insulin glargine 30 Units Subcutaneous QAM insulin lispro 0-12 Units Subcutaneous 4x Daily WC and HS insulin regular 10 Units Intravenous Once sodium polystyrene 30 g Oral Once tamsulosin 0.4 mg Oral Daily after breakfast OBJECTIVE: VS past 24 hours: Temp: [35.3 C (95.5 F)-36.6 C (97.9 F)] 36.4 C (97.5 F) Pulse: [72-100] 99 Resp: [10-18] 16 BP: (94-162)/(60-110) 145/98 Temp (24hrs), Av.9 C (96.6 F), Min:35.3 C (95.5 F), Max:36.6 C (97.9 F) I/O past 24 hours: I/O last 3 completed shifts: In: 2200 [I.V.:2200] Out: 328 [Urine:325; Blood:3] PHYSICAL EXAM: General: Awake, alert, in no acute distress. Speech is fluent. Lungs: Normal respiratory effort, no wheezing, no stridor, no tachypnea. Back: No CVA tenderness. Abdomen: Soft, nontender, no hepatosplenomegaly. No masses. No guarding; benign. Bladder nondistended. Extremities: Non-edematous. Hips and long bones nontender to fist percussion. Psychiatric: anxious, coffey, cried several times during the evaluation Skin: Warm and dry, no erythematous rash. Genitourinary: No lesion. Normal in appearance. Labs: Recent Labs Lab 09/20/18 0552 HCT 30.7* Recent Results (from the past 24 hour(s)) POC Glucose Result Value Ref Range Glucose, POC 108 70 - 109 mg/dL POC Glucose Result Value Ref Range Glucose, POC 106 70 - 109 mg/dL Basic Metabolic Panel Result Value Ref Range Na 137 136 - 149 mmol/L K 5.5 (H) 3.5 - 5.1 mmol/L Cl 113 (H) 98 - 109 mmol/L CO2 20 (L) 24 - 31 mmol/L Anion Gap 4 3 - 16 mmol/L Glucose 104 70 - 109 mg/dL BUN 29 (H) 7 - 18 mg/dL Creatinine 1.93 (H) 0.60 - 1.30 mg/dL eGFR if not 42 (L) >=60 mL/min/1.73m2 Ca 8.0 (L) 8.3 - 10.5 mg/dL BUN/Creatinine Ratio 15.0 POC Glucose Result Value Ref Range Glucose, POC 106 70 - 109 mg/dL Basic Metabolic Panel Result Value Ref Range Na 136 136 - 149 mmol/L K 6.7 (HH) 3.5 - 5.1 mmol/L Cl 112 (H) 98 - 109 mmol/L CO2 19 (L) 24 - 31 mmol/L Anion Gap 5 3 - 16 mmol/L Glucose 190 (H) 70 - 109 mg/dL BUN 36 (H) 7 - 18 mg/dL Creatinine 1.90 (H) 0.60 - 1.30 mg/dL eGFR if not 42 (L) >=60 mL/min/1.73m2 Ca 8.2 (L) 8.3 - 10.5 mg/dL BUN/Creatinine Ratio 18.9 CBC with Differential Result Value Ref Range WBC 12.5 (H) 4.0 - 11.0 K/uL RBC 3.28 (L) 4.30 - 5.70 M/uL Hgb 9.7 (L) 13.5 - 18.0 g/dL Hct 30.7 (L) 40.0 - 51.0 % MCV 93.6 83.0 - 101.0 fL MCH 29.6 28.0 - 35.0 pg MCHC 31.6 (L) 32.0 - 36.0 g/dL RDW-CV 13.5 <15.0 % RDW-SD 46.3 35.1 - 46.3 fL Platelet Count 260 140 - 440 K/uL MPV 13.4 (H) 6.5 - 12.4 fL % Neutrophils 89.2 (H) 45.0 - 82.0 % % Lymphocytes 7.9 (L) 20.0 - 45.0 % % Monocytes 2.0 (L) 4.0 - 12.0 % % Eosinophils 0.1 0.0 - 5.0 % % Basophils 0.5 0.0 - 1.0 % % Immature granulocytes 0.3 0.0 - 0.4 % Absolute Neutrophils 11.18 (H) 1.80 - 8.50 K/uL Absolute Lymphocytes 0.99 0.60 - 3.20 K/uL Absolute Monocytes 0.25 0.00 - 1.00 K/uL Absolute Eosinophils 0.01 0.00 - 0.40 K/uL Absolute Basophils 0.06 0.00 - 0.10 K/uL Absolute Imm. Granulocytes 0.04 (H) 0.00 - 0.03 K/uL nRBC 0 0 - 2 per 100 WBC's NRBC ABS 0.00 0.00 - 0.01 K/uL POC Glucose Result Value Ref Range Glucose, POC 168 (H) 70 - 109 mg/dL ECG 12 lead Result Value Ref Range INTERPRETATION TEXT Not Confirmed Lab Results Component Value Date CREA 1.90 (H) 09/20/2018 BUN 36 (H) 09/20/2018 NA 136 09/20/2018 K 6.7 (HH) 09/20/2018 CL 112 (H) 09/20/2018 CO2 19 (L) 09/20/2018 Electronically Signed by: Ambrocio Mora M.D. DATE/TIME: 09/20/2018 8:24 documented in this encounter Plan of Treatment +--------+ + + + + | Date | Type | Specialty | Care Team | Description | +--------+ + + + + | 03/03/ | Virtual | Nephrology | Winston Whitman MD | | | 2019 | Office | | [address] [facility] | | | | Visit | | [address] [place], [place] | | | | | | [address] | | | | | | | | +--------+ + + + + documented as of this encounter Procedures + +--------+ + + + | Procedure Name | Priori | Date/Time | Associated Diagnosis | Comments | | | ty | | | | + +--------+ + + + | POC GLUCOSE | Routin | 09/20/2018 | | Results for this | | | e | 11:48 AM | | procedure are in the | | | | PST | | results section. | + +--------+ + + + | BASIC METABOLIC | STAT | 09/20/2018 | | Results for this | | PANEL | | 10:53 AM | | procedure are in the | | | | PST | | results section. | + +--------+ + + + | URINALYSIS WITH | Routin | 09/20/2018 | | Results for this | | MICROSCOPIC WITH | e | 10:26 AM | | procedure are in the | | CULTURE IF INDICATED | | PST | | results section. | + +--------+ + + + | EOSINOPHIL SMEAR, | Add-On | 09/20/2018 | | Results for this | | URINE | | 10:26 AM | | procedure are in the | | | | PST | | results section. | + +--------+ + + + | SODIUM, URINE, | Add-On | 09/20/2018 | | Results for this | | RANDOM | | 10:26 AM | | procedure are in the | | | | PST | | results section. | + +--------+ + + + | CREATININE, URINE, | Add-On | 09/20/2018 | | Results for this | | RANDOM | | 10:26 AM | | procedure are in the | | | | PST | | results section. | + +--------+ + + + | POC GLUCOSE | Routin | 09/20/2018 | | Results for this | | | e | 10:24 AM | | procedure are in the | | | | PST | | results section. | + +--------+ + + + | POC GLUCOSE | Routin | 09/20/2018 | | Results for this | | | e | 9:48 AM | | procedure are in the | | | | PST | | results section. | + +--------+ + + + | POC GLUCOSE | Routin | 09/20/2018 | | Results for this | | | e | 9:13 AM | | procedure are in the | | | | PST | | results section. | + +--------+ + + + | POC GLUCOSE | Routin | 09/20/2018 | | Results for this | | | e | 9:01 AM | | procedure are in the | | | | PST | | results section. | + +--------+ + + + | BASIC METABOLIC | STAT | 09/20/2018 | | Results for this | | PANEL | | 8:46 AM | | procedure are in the | | | | PST | | results section. | + +--------+ + + + | EXTRA LAVENDER TOP | Routin | 09/20/2018 | | Results for this | | TUBE | e | 8:42 AM | | procedure are in the | | | | PST | | results section. | + +--------+ + + + | ECG 12 LEAD | STAT | 09/20/2018 | | Results for this | | | | 7:18 AM | | procedure are in the | | | | PST | | results section. | + +--------+ + + + | POC GLUCOSE | Routin | 09/20/2018 | | Results for this | | | e | 6:47 AM | | procedure are in the | | | | PST | | results section. | + +--------+ + + + | CBC WITH | Routin | 09/20/2018 | | Results for this | | DIFFERENTIAL | e | 5:52 AM | | procedure are in the | | | | PST | | results section. | + +--------+ + + + | BASIC METABOLIC | Routin | 09/20/2018 | | Results for this | | PANEL | e | 5:52 AM | | procedure are in the | | | | PST | | results section. | + +--------+ + + + | POC GLUCOSE | Routin | 09/19/2018 | | Results for this | | | e | 11:44 PM | | procedure are in the | | | | PST | | results section. | + +--------+ + + + | XR ABDOMEN AP | Routin | 09/19/2018 | | Results for this | | | e | 10:11 PM | | procedure are in the | | | | PST | | results section. | + +--------+ + + + | FL SUKUMAR STATS NO | Routin | 09/19/2018 | | Results for this | | CHARGE | e | 10:11 PM | | procedure are in the | | | | PST | | results section. | + +--------+ + + + | BASIC METABOLIC | STAT | 09/19/2018 | | Results for this | | PANEL | | 10:08 PM | | procedure are in the | | | | PST | | results section. | + +--------+ + + + | POC GLUCOSE | Routin | 09/19/2018 | | Results for this | | | e | 10:01 PM | | procedure are in the | | | | PST | | results section. | + +--------+ + + + | CALCULI ANALYSIS | Routin | 09/19/2018 | | Results for this | | | e | 9:26 PM | | procedure are in the | | | | PST | | results section. | + +--------+ + + + | POC GLUCOSE | Routin | 09/19/2018 | | Results for this | | | e | 8:46 PM | | procedure are in the | | | | PST | | results section. | + +--------+ + + + | CYSTOSCOPY | | 09/19/2018 | Renal stone | | | URETEROSCOPY W/ | | 8:37 PM | | | | LASER | | PST | | | + +--------+ + + + | IMAGING REPORT - | | 09/19/2018 | | Results for this | | EXTERNAL SCAN | | 12:00 AM | | procedure are in the | | | | PST | | results section. | + +--------+ + + + | LABS - EXTERNAL SCAN | | 09/19/2018 | | Results for this | | | | 12:00 AM | | procedure are in the | | | | PST | | results section. | + +--------+ + + + | ECG - EXTERNAL SCAN | | 09/19/2018 | | Results for this | | | | 12:00 AM | | procedure are in the | | | | PST | | results section. | + +--------+ + + + documented in this encounter Results POC Glucose (09/20/2018 11:48 AM PST) + +---------+ + + + | Component | Value | Ref Range | Performed | Pathologist | | | | | At | Signature | + +---------+ + + + | Glucose, | 277 (H) | 70 - 109 mg/dL | [facility] | | | POC | | | [facility] | | | | | | MEDICAL [...] [address] | [place] | [phone] | | [facility] | | [address] | | | - LABORATORY | | | | + + + + + Basic Metabolic Panel (09/20/2018 10:53 AM PST) + + + + + + | Component | Value | Ref Range | Performed | Pathologist | | | | | At | Signature | + + + + + + | Na | 135 (L) | 136 - 149 | [facility] | | | | | mmol/L | [facility] | | | | | | MEDICAL | | | | | | CENTER - | | | | | | LABORATORY | | + + + + + + | K | 5.7 (H) | 3.5 - 5.1 | [facility] | | | | | mmol/L | [facility] | | | | | | MEDICAL | | | | | | CENTER - | | | | | | LABORATORY | | + + + + + + | Cl | 109 | 98 - 109 mmol/L | [facility] | | | | | | [facility] | | | | | | MEDICAL | | | | | | CENTER - | | | | | | LABORATORY | | + + + + + + | CO2 | 17 (L) | 24 - 31 mmol/L | [facility] | | | | | | [facility] | | | | | | MEDICAL | | | | | | CENTER - | | | | | | LABORATORY | | + + + + + + | Anion Gap | 9 | 3 - 16 mmol/L | [facility] | | | | | | [facility] | | | | | | MEDICAL | | | | | | CENTER - | | | | | | LABORATORY | | + + + + + + | Glucose | 253 (H) | 70 - 109 mg/dL | [facility] | | | | | | [facility] | | | | | | MEDICAL | | | | | | CENTER - | | | | | | LABORATORY | | + + + + + + | BUN | 42 (H) | 7 - 18 mg/dL | [facility] | | | | | | [facility] | | | | | | MEDICAL | | | | | | CENTER - | | | | | | LABORATORY | | + + + + + + | Creatinine | 2.16 (H) | 0.60 - 1.30 | [place] | | | | | mg/dL | [facility] | | | | | | MEDICAL | | | | | | CENTER - | | | | | | LABORATORY | | + + + + + + | eGFR if not | 37 (L)Comment: | >=60 | [place] | | | | GLOMERULAR FILTRATION | mL/min/1.73m2 | [facility] | | | STATELESS | RATE,ESTIMATED | | MEDICAL | | | | mL/min/1.05o1Ybuo than | | CENTER - | | [...] + + + + | Calcium | 8.5 | 8.3 - 10.5 | [facility] | | | | | mg/dL | [facility] | | | | | | MEDICAL | | | | | | CENTER - | | | | | | LABORATORY | | + + + + + + | BUN/Creatin | 19.4 | | [facility] | | | ine Ratio | | | [facility] | | | | | | MEDICAL [...] + | [facility] | [address] | [place] | [phone] | | [facility] | | [address] | | | - LABORATORY | | | | + + + + + Eosinophil Smear, Urine (09/20/2018 10:26 AM PST) + + + + + + | Component | Value | Ref Range | Performed | Pathologist | | | | | At | Signature | + + + + + + | Eosinophils | None seen | None seen | [facility] | | | , Urine | | | [facility] | | | | | | MEDICAL [...] + | [facility] | [address] | [place] | [phone] | | [facility] | | [address] | | | - LABORATORY | | | | + + + + + Creatinine, Urine, Random (09/20/2018 10:26 AM PST) + +-------+ + + + | Component | Value | Ref Range | Performed | Pathologist | | | | | At | Signature | + +-------+ + + + | Creatinine, | 59 | mg/dL | [facility] | | | Urine, | | | [facility] | | | Random | | | MEDICAL | | | | | | CENTER - | | | | | | LABORATORY | | + +-------+ + + + + + | Specimen | + + | Urine | + + + + + | Narrative | Performed At | + + + | The reference range and other method performance specifications have | [facility] | | not been established for this test. These results should be | [facility] | | integrated into the clinical context for interpretation. | [facility] | | | - LABORATORY | + + + + + + + + | Performing | Address | City/State/Zipcode | Phone Number | | Organization | | | | + + + + + | [facility] | [address] | [place] | [phone] | | [facility] | | [address] | | | - LABORATORY | | | | + + + + + Sodium, Urine, Random (09/20/2018 10:26 AM PST) + +-------+ + + + | Component | Value | Ref Range | Performed | Pathologist | | | | | At | Signature | + +-------+ + + + | Sodium, | 84 | 27 - 287 mmol/L | [facility] | | | Urine | | | [facility] | | | Random | | | [...] [address] | [place] | [phone] | | [facility] | | [address] | | | - LABORATORY | | | | + + + + + Urinalysis with Microscopic with Culture if Indicated (09/20/2018 10:26 AM PST) + + + + + + | Component | Value | Ref Range | Performed | Pathologist | | | | | At | Signature | + + + + + + | Color, | Shante (A) | Light Yellow, | [facility] | | | Urine | | Yellow, Straw | [facility] | | | | | | MEDICAL | | | | | | CENTER - | | | | | | LABORATORY | | + + + + + + | Clarity | Cloudy (A) | Clear | [facility] | | | | | | [facility] | | | | | | MEDICAL | | | | | | CENTER - | | | | | | LABORATORY | | + + + + + + | pH, Urine | 6.0 | 5.0 - 8.0 | [facility] | | | | | | [facility] | | | | | | MEDICAL | | | | | | CENTER - | | | | | | LABORATORY | | + + + + + + | Specific | 1.012 | 1.001 - 1.030 | [facility] | | | [place], | | | [facility] | | | Urine | | | MEDICAL | | | | | | CENTER - | | | | | | LABORATORY | | + + + + + + | Protein, | 100 mg/dL (A) | Negative | [facility] | | | Urine | | | [facility] | | | | | | MEDICAL | | | | | | CENTER - | | | | | | LABORATORY | | + + + + + + | Blood, | Moderate (A) | Negative | [facility] | | | Urine | | | [facility] | | | | | | MEDICAL | | | | | | CENTER - | | | | | | LABORATORY | | + + + + + + | Glucose, | 50 mg/dL (A) | Negative | [facility] | | | Urine | | | [facility] | | | | | | MEDICAL | | | | | | CENTER - | | | | | | LABORATORY | | + + + + + + | Ketones, | Negative | Negative | [facility] | | | Urine | | | [facility] | | | | | | MEDICAL | | | | | | CENTER - | | | | | | LABORATORY | | + + + + + + | Bilirubin, | Negative | Negative | [facility] | | | Urine | | | [facility] | | | | | | MEDICAL | | | | | | CENTER - | | | | | | LABORATORY | | + + + + + + | Nitrite, | Negative | Negative | [facility] | | | Urine | | | [facility] | | | | | | MEDICAL | | | | | | CENTER - | | | | | | LABORATORY | | + + + + + + | Leukocyte | Negative | Negative | [facility] | | | Esterase, | | | [facility] | | | Urine | | | MEDICAL | | | | | | CENTER - | | | | | | LABORATORY | | + + + + + + | Urobilinoge | Negative | 0.2 mg/dL, 1.0 | [facility] | | | n, Urine | | mg/dL, Negative | [facility] | | | | | | MEDICAL | | | | | | CENTER - | | | | | | LABORATORY | | + + + + + + | White Blood | 0-2 | 0 - 2 /HPF | [facility] | | | Cells, | | | [facility] | | | Urine | | | MEDICAL | | | | | | CENTER - | | | | | | LABORATORY | | + + + + + + | Red Blood | >100 (A) | 0 - 2 /HPF | [facility] | | | Cells, | | | [facility] | | | Urine | | | MEDICAL | | | | | | CENTER - | | | | | | LABORATORY | | + + + + + + | Squamous | 0-2 | 0 - 2 /LPF | [facility] | | | Epithelial | | | [facility] | | | Cells, | | | MEDICAL | | | Urine | | | CENTER - | | | | | | LABORATORY | | + + + + + + | Bacteria, | 1+ (A) | Negative /HPF | [facility] | | | Urine | | | [facility] | | | | | | MEDICAL | | | | | | CENTER - | | | | | | LABORATORY | | + + + + + + | Urine | Urine Culture Not | | [facility] | | | Comment | Indicated | | [facility] | | | | | | MEDICAL [...] [address] | [place] | [phone] | | [facility] | | [address] | | | - LABORATORY | | | | + + + + + POC Glucose (09/20/2018 10:24 AM PST) + +---------+ + + + | Component | Value | Ref Range | Performed | Pathologist | | | | | At | Signature | + +---------+ + + + | Glucose, | 270 (H) | 70 - 109 mg/dL | [facility] | | | POC | | | [facility] | | | | | | MEDICAL [...] [address] | [place] | [phone] | | [facility] | | [address] | | | - LABORATORY | | | | + + + + + POC Glucose (09/20/2018 9:48 AM PST) + +---------+ + + + | Component | Value | Ref Range | Performed | Pathologist | | | | | At | Signature | + +---------+ + + + | Glucose, | 282 (H) | 70 - 109 mg/dL | [facility] | | | POC | | | [facility] | | | | | | MEDICAL [...] [address] | [place] | [phone] | | [facility] | | [address] | | | - LABORATORY | | | | + + + + + POC Glucose (09/20/2018 9:13 AM PST) + +---------+ + + + | Component | Value | Ref Range | Performed | Pathologist | | | | | At | Signature | + +---------+ + + + | Glucose, | 307 (H) | 70 - 109 mg/dL | [facility] | | | POC | | | [facility] | | | | | | MEDICAL [...] + | [facility] | [address] | [place] | [phone] | | [facility] | | [id number] | | | - LABORATORY | | | | + + + + + POC Glucose (09/20/2018 9:01 AM PST) + +---------+ + + + | Component | Value | Ref Range | Performed | Pathologist | | | | | At | Signature | + +---------+ + + + | Glucose, | 327 (H) | 70 - 109 mg/dL | [facility] | | | POC | | | [facility] | | | | | | [facility] [...] [facility] | [address] | [place] | [phone] | | [facility] | | [address] | | | - LABORATORY | | | | + + + + + Basic Metabolic Panel (09/20/2018 8:46 AM PST) + + + + + + | Component | Value | Ref Range | Performed | Pathologist | | | | | At | Signature | + + + + + + | Na | 135 (L) | 136 - 149 | [facility] | | | | | mmol/L | [facility] | | | | | | [facility] | | | | | | C[facility] - | | | | | | LABORATORY | | + + + + + + | K | 6.7 ()Comment: | 3.5 - 5.1 | [facility] | | | | Consistent with previous | mmol/L | [facility] | | | | results. | | MEDICAL | | | | | | CENTER - | | | | | | LABORATORY | | + + + + + + | Cl | 108 | 98 - 109 mmol/L | [facility] | | | [facility] | [facility] | | | | | | [facility] | | | | | | CENTER - | | | | | | LABORATORY | | + + + + + + | CO2 | 17 (L) | 24 - 31 mmol/L | [facility] | | | | [facility] | [facility] | | | | | | C[facility] - | | | | | | LABORATORY | | + + + + + + | Anion Gap | 10 | 3 - 16 mmol/L | [facility] | [facility] | | [facility] | [facility] | | | | | | [facility] - | | | | | | LABORATORY | | + + + + + + | Glucose | 213 (H) | 70 - 109 mg/dL | [facility] | | | | [facility] | [facility] | | | | | | C[facility] - | | | | | | LABORATORY | | + + + + + + | BUN | 40 (H) | 7 - 18 mg/dL | [facility] | | | | [facility] | [facility] | | | | | | [facility] - | | | | | | LABORATORY | | + + + + + + | Creatinine | 2.07 (H) | 0.60 - 1.30 | [facility] | | | | | mg/dL | [facility] | | | | | | MEDICAL | | | | | | CENTER - | | | | | | LABORATORY | | + + + + + + | eGFR if not | 38 (L)Comment: | >=60 | [facility] | | | | GLOMERULAR FILTRATION | mL/min/1.73m2 | [facility] | | | STATELESS | RATE,ESTIMATED | | MEDICAL | | | | mL/min/1.05d1Gvff than | | CENTER - | | [...] + + + + | Calcium | 8.7 | 8.3 - 10.5 | [facility] | | | | | mg/dL | [facility] | | | | | | MEDICAL | | | | | | CENTER - | | | | | | LABORATORY | | + + + + + + | BUN/Creatin | 19.3 | | [facility] | | | ine Ratio | | | [facility] | | | | | | MEDICAL [...] + | [facility] | [address] | [place] | [phone] | | [facility] | | [address] | | | - LABORATORY | | | | + + + + + Extra Lavender Top Tube (09/20/2018 8:42 AM PST) + +-------+ + + + | Component | Value | Ref Range | Performed | Pathologist | | | | | At | Signature | + +-------+ + + + | Extra | Done | | [facility] | | | Lavender | | | [facility] | | | Top Tube | | [...] + | [facility] | [address] | [place] | [phone] | | [facility] | | [address] | | | - LABORATORY | | | | + + + + + ECG 12 lead (09/20/2018 7:18 AM PST) + + + + + + | Component | Value | Ref Range | Performed | Pathologist | | | | | At | Signature | + + + + + + | VENTRICULAR | 103 | BPM | [facility] | | | RATE EKG | | | | | + + + + + + | ATRIAL RATE | 103 | BPM | [facility] | | + + + + + + | P-R | 168 | ms | [facility] | | | INTERVAL | | | | | + + + + + + | QRS | 88 | ms | [facility] | | | DURATION | | | | | + + + + + + | Q-T | 348 | ms | [facility] | | | INTERVAL | | | | | + + + + + + | Q-T | 455 | ms | [facility] | | | INTERVAL | | | | | | (CORRECTED) | | | | | + + + + + + | P WAVE AXIS | 61 | degrees | [facility] | | + + + + + + | QRS AXIS | -4 | degrees | [facility] | | + + + + + + | T AXIS | 63 | degrees | [facility] | | + + + + + + | INTERPRETAT | Sinus | | [facility] | | | ION TEXT | tachycardiaOtherwise | | | | | | normal ECGNo previous | | | | | | ECGs availableConfirmed | | | | | | by CRISTINE HUDDLESTON MD | | | | | | ([id number]) on 09/21/2018 | | | | | | 6:31:13 AM | | | | + + + + + + + + | Specimen | + + | | + + + + + | Narrative | Performed At | + + + | | | + + + + +---------+ + + | Performing | Address | City/State/Zipcode | Phone Number | | Organization | | | | + +---------+ + + | [facility] | | | | + +---------+ + + POC Glucose (09/20/2018 6:47 AM PST) + +---------+ + + + | Component | Value | Ref Range | Performed | Pathologist | | | | | At | Signature | + +---------+ + + + | Glucose, | 168 (H) | 70 - 109 mg/dL | [...] + | [facility] | [address] | [place] | [phone] | | [facility] | | [address] | | | - LABORATORY | | | | + + + + + CBC with Differential (09/20/2018 5:52 AM PST) + + + + + + | Component | Value | Ref Range | Performed | Pathologist | | | | | At | Signature | + + + + + + | WBC | 12.5 (H) | 4.0 - 11.0 K/uL | [facility] | | | | | | [facility] | | | | | | MEDICAL | | | | | | CENTER - | | | | | | LABORATORY | | + + + + + + | RBC | 3.28 (L) | 4.30 - 5.70 | [facility] | | | | | M/uL | [facility] | | | | | | MEDICAL | | | | | | CENTER - | | | | | | LABORATORY | | + + + + + + | Hemoglobin | 9.7 (L) | 13.5 - 18.0 | [facility] | | | | | g/dL | [facility] | | | | | | MEDICAL | | | | | | CENTER - | | | | | | LABORATORY | | + + + + + + | Hematocrit | 30.7 (L) | 40.0 - 51.0 % | [facility] | | | | | | [facility] | | | | | | MEDICAL | | | | | | CENTER - | | | | | | LABORATORY | | + + + + + + | MCV | 93.6 | 83.0 - 101.0 fL | [facility] | | | | | | [facility] | | | | | | [facility] | | | | | | CENTER - | | | | | | LABORATORY | | + + + + + + | MCH | 29.6 | 28.0 - 35.0 pg | [facility] | | | | | | [facility] | | | | | | MEDICAL | | | | | | CENTER - | | | | | | LABORATORY | | + + + + + + | MCHC | 31.6 (L) | 32.0 - 36.0 | [facility] | | | | | g/dL | [facility] | | | | | | MEDICAL | | | | | | CENTER - | | | | | | LABORATORY | | + + + + + + | RDW-CV | 13.5 | <15.0 % | [facility] | | | | | | [facility] | | | | | | MEDICAL | | | | | | CENTER - | | | | | | LABORATORY | | + + + + + + | RDW-SD | 46.3 | 35.1 - 46.3 fL | [facility] | | | | | | [facility] | | | | | | MEDICAL | | | | | | CENTER - | | | | | | LABORATORY | | + + + + + + | Platelet | 260 | 140 - 440 K/uL | [facility] | | | Count | | | [facility] | | | | | | MEDICAL | | | | | | CENTER - | | | | | | LABORATORY | | + + + + + + | MPV | 13.4 (H) | 6.5 - 12.4 fL | [facility] | | | | | | [facility] | | | | | | MEDICAL | | | | | | CENTER - | | | | | | LABORATORY | | + + + + + + | % | 89.2 (H) | 45.0 - 82.0 % | [facility] | | | Neutrophils | | | [facility] | | | | | | MEDICAL | | | | | | CENTER - | | | | | | LABORATORY | | + + + + + + | % | 7.9 (L) | 20.0 - 45.0 % | [facility] | | | Lymphocytes | | | [facility] | | | | | | MEDICAL | | | | | | CENTER - | | | | | | LABORATORY | | + + + + + + | % Monocytes | 2.0 (L) | 4.0 - 12.0 % | [facility] | | | | | | [facility] | | | | | | MEDICAL | | | | | | CENTER - | | | | | | LABORATORY | | + + + + + + | % | 0.1 | 0.0 - 5.0 % | [facility] | | | Eosinophils | | | [facility] | | | | | | MEDICAL | | | | | | CENTER - | | | | | | LABORATORY | | + + + + + + | % Basophils | 0.5 | 0.0 - 1.0 % | [facility] | | | | | | [facility] | | | | | | MEDICAL | | | | | | CENTER - | | | | | | LABORATORY | | + + + + + + | % Immature | 0.3 | 0.0 - 0.4 % | [facility] | | | Granulocyte | | | [facility] | | | s | | | MEDICAL | | | | | | CENTER - | | | | | | LABORATORY | | + + + + + + | Absolute | 11.18 (H) | 1.80 - 8.50 | [facility] | | | Neutrophils | | K/uL | [facility] | | | | | | MEDICAL | | | | | | CENTER - | | | | | | LABORATORY | | + + + + + + | Absolute | 0.99 | 0.60 - 3.20 | [facility] | | | Lymphocytes | | K/uL | [facility] | | | | | | MEDICAL | | | | | | CENTER - | | | | | | LABORATORY | | + + + + + + | Absolute | 0.25 | 0.00 - 1.00 | [facility] | | | Monocytes | | K/uL | [facility] | | | | | | MEDICAL | | | | | | CENTER - | | | | | | LABORATORY | | + + + + + + | Absolute | 0.01 | 0.00 - 0.40 | [facility] | | | Eosinophils | | K/uL | [facility] | | | | | | MEDICAL | | | | | | CENTER - | | | | | | LABORATORY | | + + + + + + | Absolute | 0.06 | 0.00 - 0.10 | [facility] | | | Basophils | | K/uL | [facility] | | | | | | MEDICAL | | | | | | CENTER - | | | | | | LABORATORY | | + + + + + + | Absolute | 0.04 (H) | 0.00 - 0.03 | [facility] | | | Immature | | K/uL | [facility] | | | Granulocyte | | | MEDICAL | | | s | | | CENTER - | | | | | | LABORATORY | | + + + + + + | % nRBC | 0 | 0 - 2 per 100 | [facility] | | | | | WBC's | [facility] | | | | | | MEDICAL | | | | | | CENTER - | | | | | | LABORATORY | | + + + + + + | Absolute | 0.00 | 0.00 - 0.01 | [facility] | | | nRBC | | K/uL | [facility] | | | | | | MEDICAL [...] [address] | [place] | [phone] | | [facility] | | [address] | | | - LABORATORY | | | | + + + + + Basic Metabolic Panel (09/20/2018 5:52 AM PST) + + + + + + | Component | Value | Ref Range | Performed | Pathologist | | | | | At | Signature | + + + + + + | Na | 136 | 136 - 149 | [facility] | | | | | mmol/L | [facility] | | | | | | MEDICAL | | | | | | CENTER - | | | | | | LABORATORY | | + + + + + + | K | 6.7 (HH)Comment: | 3.5 - 5.1 | [facility] | | | | Critical Result called | mmol/L | [facility] | | | | to and read back by | | MEDICAL | | | | Eddy Cat RN | | CENTER - | | | | on 09/20/2018 at 7:05 by | | LABORATORY | | | | Bridgette Pang. | | | | + + + + + + | Cl | 112 (H) | 98 - 109 mmol/L | [facility] | | | | | | [facility] | | | | | | MEDICAL | | | | | | CENTER - | | | | | | LABORATORY | | + + + + + + | CO2 | 19 (L) | 24 - 31 mmol/L | [facility] | | | | | | [facility] | | | | | | MEDICAL | | | | | | CENTER - | | | | | | LABORATORY | | + + + + + + | Anion Gap | 5 | 3 - 16 mmol/L | [facility] | | | | | | [facility] | | | | | | MEDICAL | | | | | | CENTER - | | | | | | LABORATORY | | + + + + + + | Glucose | 190 (H) | 70 - 109 mg/dL | [facility] | | | | | | [facility] | | | | | | MEDICAL | | | | | | CENTER - | | | | | | LABORATORY | | + + + + + + | BUN | 36 (H) | 7 - 18 mg/dL | [facility] | | | | | | [facility] | | | | | | MEDICAL | | | | | | CENTER - | | | | | | LABORATORY | | + + + + + + | Creatinine | 1.90 (H) | 0.60 - 1.30 | [facility] | | | | | mg/dL | [facility] | | | | | | MEDICAL | | | | | | CENTER - | | | | | | LABORATORY | | + + + + + + | eGFR if not | 42 (L)Comment: | >=60 | [facility] | | | | GLOMERULAR FILTRATION | mL/min/1.73m2 | [facility] | | | STATELESS | RATE,ESTIMATED | | MEDICAL | | | | mL/min/1.35m2Srwm than | | CENTER - | | [...] + + + + | Calcium | 8.2 (L) | 8.3 - 10.5 | [facility] | | | | | mg/dL | [facility] | | | | | | MEDICAL | | | | | | CENTER - | | | | | | LABORATORY | | + + + + + + | BUN/Creatin | 18.9 | | [facility] | | | ine Ratio | | | [facility] | | | | | | MEDICAL [...] [address] | [place] | [phone] | | [facility] | | [address] | | | - LABORATORY | | | | + + + + + POC Glucose (09/19/2018 11:44 PM PST) + +-------+ + + + | Component | Value | Ref Range | Performed | Pathologist | | | | | At | Signature | + +-------+ + + + | Glucose, | 106 | 70 - 109 mg/dL | [facility] | | | POC | | | [facility] | | | | | | MEDICAL [...] + | [facility] | [address] | [place], [place] | [phone] | | [facility] | | [address] | | | - LABORATORY | | | | + + + + + XR Abdomen AP (09/19/2018 10:11 PM PST) + + | Specimen | + + | | + + + + + | Narrative | Performed At | + + + | This exam has been auto-finalized and the interpretation may exist | [facility] | | elsewhere in the chart. | | + + + + +---------+ + + | Performing | Address | City/State/Zipcode | Phone Number | | Organization | | | | + +---------+ + + | [facility] | | | | + +---------+ + + [place] Ailyn-Chirag Roper No Charge (09/19/2018 10:11 PM PST) + + | Specimen | + + | | + + + + + | Narrative | Performed At | + + + | This exam has been auto-finalized and the interpretation may exist | [facility] | | elsewhere in the chart. | | + + + + +---------+ + + | Performing | Address | City/State/Zipcode | Phone Number | | Organization | | | | + +---------+ + + | [facility] | | | | + +---------+ + + Basic Metabolic Panel (09/19/2018 10:08 PM PST) + + + + + + | Component | Value | Ref Range | Performed | Pathologist | | | | | At | Signature | + + + + + + | Na | 137 | 136 - 149 | [facility] | | | | | mmol/L | [facility] | | | | | | MEDICAL | | | | | | CENTER - | | | | | | LABORATORY | | + + + + + + | K | 5.5 (H) | 3.5 - 5.1 | [facility] | | | | | mmol/L | [facility] | | | | | | MEDICAL | | | | | | CENTER - | | | | | | LABORATORY | | + + + + + + | Cl | 113 (H) | 98 - 109 mmol/L | [facility] | | | | | | [facility] | | | | | | MEDICAL | | | | | | CENTER - | | | | | | LABORATORY | | + + + + + + | CO2 | 20 (L) | 24 - 31 mmol/L | [facility] | | | | | | [facility] | | | | | | MEDICAL | | | | | | CENTER - | | | | | | LABORATORY | | + + + + + + | Anion Gap | 4 | 3 - 16 mmol/L | [facility] | | | | | | [facility] | | | | | | MEDICAL | | | | | | CENTER - | | | | | | LABORATORY | | + + + + + + | Glucose | 104 | 70 - 109 mg/dL | [facility] | | | | | | [facility] | | | | | | MEDICAL | | | | | | CENTER - | | | | | | LABORATORY | | + + + + + + | BUN | 29 (H) | 7 - 18 mg/dL | [facility] | | | | | | [facility] | | | | | | MEDICAL | | | | | | CENTER - | | | | | | LABORATORY | | + + + + + + | Creatinine | 1.93 (H) | 0.60 - 1.30 | [facility] | | | | | mg/dL | [facility] | | | | | | MEDICAL | | | | | | CENTER - | | | | | | LABORATORY | | + + + + + + | eGFR if not | 42 (L)Comment: | >=60 | [facility] | | | | GLOMERULAR FILTRATION | mL/min/1.73m2 | [facility] | | | STATELESS | RATE,ESTIMATED | | MEDICAL | | | | mL/min/1.79c3Wfau than | | CENTER - | | [...] + + + + | Calcium | 8.0 (L) | 8.3 - 10.5 | [facility] | | | | | mg/dL | [facility] | | | | | | MEDICAL | | | | | | CENTER - | | | | | | LABORATORY | | + + + + + + | BUN/Creatin | 15.0 | | [facility] | | | ine Ratio | | | [facility] | | | | | | MEDICAL [...] + | [facility] | [address] | [place] | [phone] | | [facility] | | [address] | | | - LABORATORY | | | | + + + + + POC Glucose (09/19/2018 10:01 PM PST) + +-------+ + + + | Component | Value | Ref Range | Performed | Pathologist | | | | | At | Signature | + +-------+ + + + | Glucose, | 106 | 70 - 109 mg/dL | [facility] [...] [address] | [place] | [phone] | | [facility] | | [address] | | | - LABORATORY | | | | + + + + + Calculi Analysis (09/19/2018 9:26 PM PST) + + + + + + | Component | Value | Ref Range | Performed | Pathologist | | | | | At | Signature | + + + + + + | CALCULI | CommentComment: | mm | [facility] | | | SIZE | Specimens received as a | | [facility] | | | | mixture of whole stones | | - BKR | | | | and fragments. | | | | + + + + + + | Stone | CommentComment: | | REFERENCE | | | Composition | Percentage (Represents | | [facility] | | | | the % composition) | | - BKR | | + + + + + + | Color | Diane | | REFERENCE | | | | | | [facility] | | | | | | - BKR | | + + + + + + | Calculi | 18.3 | mg | REFERENCE | | | Weight | | | [facility] | | | | | | - BKR | | + + + + + + | Ca | 05 | % | REFER[facility] | | | Oxalate,Mon | | | [facility] | | | ohydr. | | | - BKR | | + + + + + + | Nidus | No Nidus visualized | | REFERENCE | | | | | | [facility] | | | | | | - BKR | | + + + + + + | Comment | Comment:Comment: By | | REFERENCE | | | | infrared spectroscopy, | | [facility] | | | | 95% of specimen consists | | - BKR | | | | of aluminum | | | | | | magnesiumurate. | | | | + + + + + + | Comment | Note:Comment: Please do | | REFERENCE | | | | not submit specimens on | | [facility] | | | | Q-Tips, in tape, on | | - BKR | | | | filters, or inliquids | | | | | | such as blood, urine or | | | | | | formalin. This may | | | | | | cause | | | | | | unnecessarybiohazards, | | | | | | erroneous results and/or | | | | | | delay in the processing | | | | | | of thespecimen.Blood | | | | | | was observed on exterior | | | | | | of specimen. | | | | + + + + + + | Photo | CommentComment: | | REFERENCE | | | | Photograph will follow | | [facility] | | | | under separate cover. | | - BKR | | + + + + + + | CALCULI | CommentComment: | | REFERENCE | | | COMMENT | Physician questions | | [facility] | | | | regarding Calculi | | - BKR | | | | Analysis contact [facility] | | | | | | at:[phone]. | | | | + + + + + + | Please note | CommentComment: Calculi | | REFERENCE | | | | report with photograph | | [facility] | | | | will follow via | | - BKR | | | | computer, mail orcourier | | | | | | delivery. | | | | + + + + + + | Disclaimer | CommentComment: This | | REFERENCE | | | | test was developed and | | [facility] | | | | its performance | | - BKR | | | | characteristicsdetermine | | | | | | d by [facility]. It has not | | | | | | been cleared or | | | | | | approvedby the Food and | | | | | | Drug Administration. | | | | + + + + + + + + | Specimen | + + | Tissue - Specimen | | from right kidney, | | superior pole | | obtained by partial | | nephrectomy | | (specimen) | + + + + + | Narrative | Performed At | + + + | Performed at: 01 - [facility] [address], | REFERENCE LAB | | [place], [place] [id number] Doll Wig Hackler: Sarabjit Love MD, Phone: | [facility] [place] | | [phone] | | + + + + + + + + | Performing | Address | City/State/Zipcode | Phone Number | | Organization | | | | + + + + + | REFERENCE LAB | [address] | [place], [place] | [phone] | | [facility] | [place] | [address] | | + + + + + POC Glucose (09/19/2018 8:46 PM PST) + +-------+ + + + | Component | Value | Ref Range | Performed | Pathologist | | | | | At | Signature | + +-------+ + + + | Glucose, | 108 | 70 - 109 mg/dL | [facility] | | | POC | | | [facility] | | | | | | MEDICAL [...] [address] | [place] | [phone] | | [facility] | | [address] | | | - LABORATORY | | | | + + + + + LABS - EXTERNAL SCAN (09/19/2018 12:00 AM PST) + + + | Narrative | Performed At | + + + | Ordered by an | | | unspecified provider. | | + + + IMAGING REPORT - EXTERNAL SCAN (09/19/2018 12:00 AM PST) + + + | Narrative | Performed At | + + + | Ordered by an | | | unspecified provider. | | + + + ECG - EXTERNAL SCAN (09/19/2018 12:00 AM PST) + + + | Narrative | Performed At | + + + | Ordered by an | | | unspecified provider. | | + + + documented in this encounter Visit Diagnoses + + | Diagnosis | + + | Right ureteral stone - Primary Calculus of ureter | + + | Acute kidney injury (HCC) Acute kidney failure, unspecified | + + | Flank pain Abdominal pain, unspecified site | + + | Hydronephrosis, unspecified hydronephrosis type | + + | Hyperkalemia Hyperpotassemia | + + | Type 1 diabetes mellitus with nephropathy (HCC) | + + | Hypertension Unspecified essential hypertension | + + | Marijuana use Cannabis abuse, unspecified | + + | Current smoker Tobacco use disorder | + + documented in this encounter Administered Medications + +--------+ + +------+------+ | Medication Order | MAR | Action | Dose | Rate | Site | | | Action | Date | | | | + +--------+ + +------+------+ | acetaminophen (TYLENOL) tablet | Given | 09/20/20 | 1,000 mg | | | | 1,000 mg 1,000 mg, Oral, EVERY 8 | | 18 6:23 | | | | | HOURS (3 times per day), First | | AM PST | | | | | dose on Tue09/20/18 at 0600, For | | | | | | | 3 days, Start 8 hours after | | | | | | | pre-op dose., Post-op/Phase II | | | | | | + +--------+ + +------+------+ +---+---+ | | | +---+---+ + +-------+ +------+---+---+ | albuterol 5 mg/mL concentrated | Given | 09/20/20 | 5 mg | | | | nebulizer solution 5 mg 5 mg, | | 18 10:27 | | | | | Nebulization, ONCE, Tue09/20/18 | | AM PST | | | | | at 0745, For 1 dose, RT will | | | | | | | administer., | | | | | | + +-------+ +------+---+---+ +---+---+ | | | +---+---+ + +-------+ +-----+---+---+ | calcium gluconate injection 1 g | Given | 09/20/20 | 1 g | | | | 1 g, Intravenous, ONCE, Wed | | 18 8:21 | | | | | 09/20/18 at 0745, For 1 dose | | AM PST | | | | + +-------+ +-----+---+---+ + +---+ | | | + +---+ | dextrose 50% injection 12.5 g | | | 12.5 g, Intravenous, PRN, Low | | | Blood Sugar, Starting Tue | | | 09/19/18 at 2325 | | + +---+ | | | + +---+ + +-------+ +------+---+---+ | dextrose 50% injection 25 g 25 | Given | 09/20/20 | 25 g | | | | g, Intravenous, ONCE, Wed | | 18 8:49 | | | | | 09/20/18 at 0815, For 1 dose | | AM PST | | | | + +-------+ +------+---+---+ +---+---+ | | | +---+---+ + +-------+ +-------+---+---+ | furosemide (LASIX) injection 40 | Given | 09/20/20 | 40 mg | | | | mg 40 mg, Intravenous, ONCE, | | 18 8:21 | | | | | 09/20/18 at 0745, For 1 dose | | AM PST | | | | + +-------+ +-------+---+---+ +---+---+ | | | +---+---+ + +-------+ +--------+---+---+ | HYDROmorphone (DILAUDID) | Given | 09/20/20 | 0.5 mg | | | | injection 0.25-1 mg 0.25-1 mg, | | 18 8:35 | | | | | Intravenous, EVERY 2 HOURS PRN, | | AM PST | | | | | Pain, Starting 09/20/18 at | | | | | | | 0159, If oral route not an | | | | | | | option. Slow IV push, not faster | | | | | | | than 0.3mg/minute. First dose | | | | | | | must be lowest dose, titrate to | | | | | | | effective dose by repeat of | | | | | | | lowest dose every 30 minutes prn | | | | | | | pain, may not exceed maximum dose | | | | | | | ordered per interval. Use Pasero | | | | | | | Sedation Scale., Post-op/Phase | | | | | | | II | | | | | | + +-------+ +--------+---+---+ +-------+ +--------+---+---+ | Given | 09/20/20 | 0.5 mg | | | | | 18 2:26 | | | | | | AM PST | | | | +-------+ +--------+---+---+ +---+---+ | | | +---+---+ + +-------+ +--------+---+---+ | HYDROmorphone (DILAUDID) | Given | 09/19/20 | 0.5 mg | | | | injection 0.5-1 mg 0.5-1 mg, | | 18 11:32 | | | | | Intravenous, EVERY 1 HOUR PRN, | | PM PST | | | | | Pain, Starting 09/19/18 at | | | | | | | 2040 | | | | | | + +-------+ +--------+---+---+ +---+---+ | | | +---+---+ + +-------+ +---------+---+ + | influenza quadrivalent | Given | 09/20/20 | 0.5 mLs | | Deltoid- | | (FLUZONE, FLUARIX, AFLURIA | | 18 6:25 | | | Left | | QUADRIVALENT) vaccine injection | | AM PST | | | | | (syringe) 0.5 mL 0.5 mL, | | | | | | | Intramuscular, ONE TIME VACCINE, | | | | | | | 09/19/18 at 1945, For 1 dose, | | | | | | | Give patient education | | | | | | | information. Shake prior to use., | | | | | | | | | | | | | + +-------+ +---------+---+ + + +---+ | | | + +---+ | insulin glargine (LANTUS | | | SOLOSTAR) injection (pen) 30 | | | Units 30 Units, Subcutaneous, | | | DAILY EVENING, First dose (after | | | last modification) on Tue | | | 09/20/18 at 1800, For | | | subcutaneous use only. Basal | | | (long acting) insulin., | | + +---+ | | | + +---+ + +-------+ +---------+---+ + | insulin lispro (humaLOG | Given | 09/20/20 | 6 Units | | Arm-Righ | | KWIKPEN) injection (pen) 0-12 | | 18 11:57 | | | t Upper | | Units 0-12 Units, Subcutaneous, | | AM PST | | | | | 4 TIMES DAILY WITH MEALS & | | | | | | | NIGHTLY, First dose on Tue | | | | | | | 09/19/18 at 2345, CORRECTION | | | | | | [...] | | | | | | | [id number] Use NIGHT DOSE for | | | | | | | doses scheduled: HS, 3AM, | | | | | | | Nighttime [id number], | | | | | | + +-------+ +---------+---+ + +-------+ +---------+---+ + | Given | 09/20/20 | 2 Units | | Arm-Left | | | 18 8:49 | | | Upper | | | AM PST | | | | +-------+ +---------+---+ + +---+---+ | | | +---+---+ + +-------+ + +---+---+ | insulin regular (humuLIN R, | Given | 09/20/20 | 10 Units | | | | novoLIN R) injection 10 Units 10 | | 18 9:11 | | | | | Units, Intravenous, ONCE, Wed | | AM PST | | | | | 09/20/18 at 0845, For 1 dose, | | | | | | | Give dextrose 50% ONCE 5 minutes | | | | | | | before insulin to help prevent | | | | | | | hypoglycemia. Only for use with | | | | | | | U-100 insulin syringe., | | | | | | + +-------+ + +---+---+ + +---+ | | | + +---+ | magnesium hydroxide (MILK OF | | | MAGNESIA) 400 mg/5 mL suspension | | | 30 mL 30 mL, Oral, NIGHTLY PRN, | | | Constipation, Starting Fri | | | 09/22/18 at 0000, If docusate, | | | senna, and polyethylene glycol | | | ineffective x 24 hours or not | | | ordered, Post-op/Phase II | | + +---+ | | | + +---+ | oxybutynin (DITROPAN) tablet 5 | | | mg 5 mg, Oral, EVERY 8 HOURS | | | PRN, Bladder Spasms, Starting Wed | | | 09/20/18 at 0159, Hold all | | | antispasmodics after 0200 hours., | | | Post-op/Phase II | | + +---+ | | | + +---+ + +-------+ +-------+---+---+ | oxyCODONE (ROXICODONE) tablet | Given | 09/20/20 | 15 mg | | | | 5-20 mg 5-20 mg, Oral, EVERY 3 | | 18 11:56 | | | | | HOURS PRN, Pain, Starting Wed | | AM PST | | | | | 09/20/18 at 0159, First dose must | | | | | | | be the lowest dose, can titrate | | | | | | | to effective dose by repeat of | | | | | | | lowest dose every 60 minutes prn | | | | | | | pain, may not exceed maximum dose | | | | | | | ordered per interval. Use Pasero | | | | | | | Sedation Scale., Post-op/Phase | | | | | | | II | | | | | | + +-------+ +-------+---+---+ +-------+ +------+---+---+ | Given | 09/20/20 | 5 mg | | | | | 18 8:35 | | | | | | AM PST | | | | +-------+ +------+---+---+ | Given | 09/20/20 | 5 mg | | | | | 18 6:23 | | | | | | AM PST | | | | +-------+ +------+---+---+ +---+---+ | | | +---+---+ + +-------+ +--------+---+---+ | phenazopyridine (PYRIDIUM) | Given | 09/20/20 | 200 mg | | | | tablet 200 mg 200 mg, Oral, 3 | | 18 1:34 | | | | | TIMES DAILY PRN, Urinary | | PM PST | | | | | Symptoms, urinary burning., | | | | | | | Starting Tue09/20/18 at 0159, | | | | | | | Administer with meals., | | | | | | | Post-op/Phase II | | | | | | + +-------+ +--------+---+---+ + +---+ | | | + +---+ | senna (SENOKOT) tablet 8.6 mg | | | 8.6 mg, Oral, 2 TIMES DAILY PRN, | | | Constipation, Starting Wed | | | 09/20/18 at 0159, If docusate | | | ineffective or not ordered, | | | Post-op/Phase II | | + +---+ | | | + +---+ + +---------+ +---+-------+---+ | sodium chloride 0.9% (NS) | New Bag | 09/20/20 | | 150 | | | infusion at 150 mL/hr, | | 18 1:36 | | mL/hr | | | Intravenous, CONTINUOUS, Starting | | PM PST | | | | | 09/20/18 at 1300 | | | | | | + +---------+ +---+-------+---+ +---+---+ | | | +---+---+ + +-------+ +------+---+---+ | sodium polystyrene (KAYEXALATE) | Given | 09/20/20 | 30 g | | | | 15 g/60 mL suspension 30 g 30 | | 18 8:29 | | | | | g, Oral, ONCE, Tue09/20/18 at | | AM PST | | | | | 0800, For 1 dose, Shake well. Do | [...] | | +---+---+ + +-------+ +--------+---+---+ | tamsulosin (FLOMAX) capsule 0.4 | Given | 09/20/20 | 0.4 mg | | | | mg 0.4 mg, Oral, DAILY AFTER | | 18 8:35 | | | | | BREAKFAST, First dose on Tue | | AM PST | | | | | 09/20/18 at 0900, May open | | | | | | | capsule and sprinkle over acidic | | | | | | | soft food (applesauce, yogurt) or | | | | | | | in a small quantity of acidic | | | | | | | fruit juice (orange, grape). Do | | | | | | | not crush, chew or dissolve | | | | | | | granules., Post-op/Phase II | | | | | | + +-------+ +--------+---+---+ +---+---+ | | | +---+---+ documented in this encounter
--- OUTSIDE RECORDS SUMMARY | ~2020-02-15 | XMS | Encounter Summary ---
Demographics + + + | Address | [address] | | | [place] [address] | + + + | Home Phone | | + + + | Preferred Language | Unknown | + + + | Marital Status | Single | + + + | Gnosticism Affiliation | Unknown | + + + | Race | Unknown | + + + | Ethnic Group | Unknown | + + + Author + + + | Author | [facility] | | | and [place] | + + + | Organization | [facility] | | | [...] [place] | | | | | [address] | | + + + + + Care Team Providers + +------+ + | Care House Wirer Helper Name | Role | Phone | + +------+ + | Erich Yates | PCP | | + +------+ + Encounter Details +--------+ + + + + | Date | Type | Department | Care Team | Description | +--------+ + + + + | 04/18/ | Orders Only | [facility] | Provider, | Chronic kidney | | 2018 | | SYSTEM GENERIC OP | MD [address] | disease, stage III | | | | CONVERSION [address] | [address] | (moderate) ([facility]); | | | | [address] [place], [place] | [place] [address] | Proteinuria; Type 1 | | | | [address] | | diabetes mellitus | | | | [phone] | | with diabetic | | | | | | nephropathy ([facility]); | | | | | | Chronic kidney | | | | | | disease, stage III | | | | | | (moderate) ([facility]) | +--------+ + + + + Social [...] | Winston Whitman MD | | | 2020 | Office | | [address] [facility] | | | | Visit | | [address] [place], [place] | | | | | | [address] | | | | | | | | +--------+ + + + + + +------+--------+ + + | Name | Type | Priori | Associated Diagnoses | Order Schedule | | | | ty | | | + +------+--------+ + + | Urinalysis with | Lab | Routin | Chronic kidney | Expected: | | Microscopic if | | e | disease, stage III | 03/07/2019, Expires: | | Indicated | | | (moderate) ([facility]) | 01/15/2021 | | | | | Proteinuria Type 1 | | | | | | diabetes mellitus | | | | | | with diabetic | | | | | | nephropathy ([facility]) | | | | | | Chronic kidney | | | | | | disease, stage III | | | | | | (moderate) ([facility]) | | + +------+--------+ + + | Protein/Creatinine | Lab | Routin | Chronic kidney | Expected: | | Ratio, Urine | | e | disease, stage III | 03/07/2019, Expires: | | | | | (moderate) ([facility]) | 01/15/2021 | | | | | Proteinuria Type 1 | | | | | | diabetes mellitus | | | | | | with diabetic | | | | | | nephropathy ([facility]) | | | | | | Chronic kidney | | | | | | disease, stage III | | | | | | (moderate) ([facility]) | | + +------+--------+ + + documented as of this encounter Visit Diagnoses + + | Diagnosis | + + | Chronic kidney disease, stage III (moderate) ([facility]) Chronic kidney disease, Stage III | | ([facility]) | + + | Proteinuria | + + | 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
--- OUTSIDE RECORDS SUMMARY | ~2020-02-15 | XMS | Encounter Summary ---
Demographics + + + | Address | [address] | | | [place] [address] | + + + | Home Phone | | + + + | Preferred Language | Unknown | + + + | Marital Status | Single | + + + | Zoroastrianism Affiliation | NON | + + + | Race | White | + + + | Ethnic Group | Not or | + + + Author + + + | Author | [facility] | + + + | Organization | [facility] | + + + | Address | Unknown | + + + | Phone | Unavailable | + + + Support + + + + + | Name | Relationship | Address | Phone | + + + + + | Samantha Ramos | ECON | [address] # | | | | | [place] | | | | | [address] | | + + + + + Care Team Providers + +------+ + | Care Pairer Odds Name | Role | Phone | + [...] Endocrinology at | MD Ann [address] | | | | | [place] | [address] | | | | | [facility] | [place] [address] | | | | | [address] | | | | | | [place] | | | | | | [place], [place] | | | | | | [address] | | | | | | [phone] | | | +--------+ + + + [...]
--- OUTSIDE RECORDS SUMMARY | ~2020-02-15 | XMS | Encounter Summary ---
Demographics + + + | Address | [address] | | | [place] [address] | + + + | Home Phone | | + + + | Preferred Language | Unknown | + + + | Marital Status | Single | + + + | Christianity Affiliation | NON | + + + | Race | White | + + + | Ethnic Group | Not or | + + + Author + + + | Author | [facility] | + + + | Organization | [facility] | + + + | Address | Unknown | + + + | Phone | Unavailable | + + + Support + + + + + | Name | Relationship | Address | Phone | + + + + + | Samantha Ramos | ECON | [address] # | | | | | [place] | | | | | [address] | | + + + + + Care Team Providers + +------+ + | Care Elevator Troubleshooter Name | Role | Phone | + +------+ + | Neri Mojica MD | PCP | | + +------+ + Encounter Details +--------+ + + + + | Date | Type | Department | Care Team | Description | +--------+ + + + + | 06/14/ | Results | Orthopaedics at | Ale [place], | | | 2005 | Only | [address] | 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
--- OUTSIDE RECORDS SUMMARY | ~2020-02-15 | XMS | Encounter Summary ---
Demographics + + + | Address | [address] | | | [place] [address] | + + + | Home Phone | | + + + | Preferred Language | Unknown | + + + | Marital Status | Single | + + + | Yarsani Affiliation | Unknown | + + + [...] [place] | | | | | [address] | | + + + + + Care Team Providers + +------+ + | Care Musical Instrument Supervisor Name | Role | Phone | + +------+ + | Erich Yates | PCP | | + +------+ + Encounter Details +--------+ + + + + | Date | Type | Department | Care Team | Description | +--------+ + + + + | 02/14/ | Orders Only | [facility] | [place], | Diabetic | | 2019 | | GASTROENTEROLOGY | DANA [address] | gastroparesis (HCC) | | | | [address] | [place], [address] | (Primary Dx); Weight | | | | [address] [place], [place] | [place], [place] | loss; Malnutrition, | | | | [address] | [address] | unspecified type | | | | [phone] | | ([facility]); 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 | | | | | | ([facility]); Anemia of | | | | | | chronic renal | | | | | | failure, stage 3 | | | | | | (moderate) (HCC) | +--------+ + + + + Social [...] 2019 | Office | | [address] [facility] | | | | Visit | | [address] [place], [place] | | | | | | [address] | | | | | | | [...]
--- OUTSIDE RECORDS SUMMARY | ~2020-02-15 | XMS | Encounter Summary ---
Demographics + + + | Address | [address] | | | [place] [address] | + + + | Home Phone | | + + + | Preferred Language | Unknown | + + + | Marital Status | Single | + + + | Pentecostalism Affiliation | NON | + + + | Race | White | + + + | Ethnic Group | Not or | + + + Author + + + | Author | [facility] | + + + | Organization | [facility] | + + + | Address | Unknown | + + + | Phone | Unavailable | + + + Support + + + + + | Name | Relationship | Address | Phone | + + + + + | Samantha Ramos | ECON | [address] # | | | | | [place] | | | | | [address] | | + + + + + Care Team Providers + +------+ + | Care Thermal Molder Name | Role | Phone | + +------+ + | Erich Yates PA-C | PCP | | + +------+ + Encounter Details +--------+ + + + + | Date | Type | Department | Care Team | Description | +--------+ + + + + | 01/05/ | Outside | UNKNOWN DEPARTMENT | Other, Faculty | | | 2020 | Records | [address] [facility] | [phone] | | | | | [address] | | | | | | [place], [place] | | | | | | [address] | | | +--------+ + + + [...]
--- OUTSIDE RECORDS SUMMARY | ~2020-02-15 | XMS | Encounter Summary ---
Demographics + + + | Address | [address] | | | [place] [address] | + + + | Home Phone | | + + + | Preferred Language | Unknown | + + + | Marital Status | Single | + + + | Shinto Affiliation | NON | + + + [...] Samantha Ramos | ECON | [address] # | | | | | [place] | | | | | [address] | | + + + + + Care Team Providers + +------+ + | Care Residential Property Tax Appraiser Name | Role | Phone | + +------+ + | Erich Yates PA-C | PCP | | + +------+ + Reason for Referral PROC - Dept/Practice Procedure (Urgent) + +--------+ + + + + | Status | Reason | Specialty | Diagnoses / | Referred By | Referred To | | | | | Procedures | Contact | Contact | + +--------+ + + + + | Pending | | Gastroenterol | Diagnoses | Giancarlo, | Gas Endo | | Review | | ogy | Diabetic | Beth Dougherty, | [address] | | | | | gastroparesi | [address] | [address] | | | | | s associated | [address] | Mailcode: | | | | | with type [address] | [facility] | | | | | diabetes | [place], [place] | for Health | | | | | mellitus | [address] | and Healing, | | | | | ([facility]) | Phone: | Building [address] | | | | | Procedures | [phone] | [place], [place] | | | | | CONSULT TO | Fax: | [address] | | | | | GI PROCEDURE | [phone] | Phone: | | | | | UNIT: EGD | | [phone] | | | | | | | Fax: | | | | | | | [phone] | + +--------+ + + + + Reason for Visit +--------+ + | Reason | Comments | +--------+ + | Other | Scheduling EGD w/ pyloric botox | +--------+ + Encounter Details +--------+ + + + + | Date | Type | Department | Care Team | Description | +--------+ + + + + | 09/05/ | Telephone | Digestive Health | Beth Mondragon, | Other (Scheduling | | 2019 | | Center at [facility] [address] | [address] [facility] | EGD w/ pyloric | | | | [address] | [facility] [address] | botox) | | | | Mailcode: Center | [place], [place] | | | | | [facility] and | [address] | | | | | [place] [address] | [phone] | | | | | [place], [place] | | | | | | [address] | | | | | | [phone] | | | +--------+ + + + [...]
--- OUTSIDE RECORDS SUMMARY | ~2020-02-15 | XMS | Encounter Summary ---
Demographics + + + | Address | [address] | | | [place] [address] | + + + | Home Phone | | + + + | Preferred Language | Unknown | + + + | Marital Status | Single | + + + | Orthodoxy Affiliation | NON | + + + | Race | White | + + + | Ethnic Group | Not or | + + + Author + + + | Author | [facility] | + + + | Organization | [facility] | + + + | Address | Unknown | + + + | Phone | Unavailable | + + + Support + + + + + | Name | Relationship | Address | Phone | + + + + + | Samantha Ramos | ECON | [address] # | | | | | [place] | | | | | [address] | | + + + + + Care Team Providers + +------+ + | Care Health Workers Name | Role | Phone | + +------+ + | Erich Yates PA-C | PCP | | + +------+ + Encounter Details +--------+ + + + + | Date | Type | Department | Care Team | Description | +--------+ + + + + | 10/11/ | Transcribe | [facility] | Transcribe | | | 2020 | Orders | [facility] [address] | Encounter, Provider, | | | | | [address] Mailcode: | [address] | | | | | [facility] for | [place] [address] | | | | | Health and Healing, | | | | | | [address] | | | | | | [place], [place] | | | | | | [address] | | | | | | [phone] | | | +--------+ + + + [...] mellitus | | | | | | ([facility]) | | +------+ +--------+ + + documented as of this encounter Visit Diagnoses + + | Diagnosis | + + | Diabetic gastroparesis associated with type 1 diabetes mellitus (HCC) - Primary | + + documented in this encounter"
--- OUTSIDE RECORDS SUMMARY | ~2020-02-15 | XMS | Encounter Summary ---
Demographics + + + | Address | [address] | | | [place] [address] | + + + | Home Phone | | + + + | Preferred Language | Unknown | + + + | Marital Status | Single | + + + | Hindu Affiliation | NON | + + + [...] | Samantha Ramos | ECON | [address] # | | | | | [place] | | | | | [address] | | + + + + + Care Team Providers + +------+ + | Care Brusher Warp Name | Role | Phone | + +------+ + | Neir Mojica MD | PCP | | + +------+ + Encounter Details +--------+ + + + + | Date | Type | Department | Care Team | Description | +--------+ + + + + | 04/26/ | Results | Orthopaedics at | Neri Mcgarry, | | | 2006 | Only | [address] | [address] | | | | | [address] | [address] | | | | | Mailcode: PV430 | [place], [place] | | | | | [facility]ilion | [address] | | | | | [place], [place] | [phone] | | | | | [address] | | | | | | [phone] | | | +--------+ + + + [...]
--- OUTSIDE RECORDS SUMMARY | ~2020-02-15 | XMS | Encounter Summary ---
Demographics + + + | Address | [address] | | | [place] [address] | + + + | Home Phone [...] + + + | Author | [facility] | + + + | Organization | [facility] | + + + | Address | Unknown | + + + | Phone | Unavailable | + + + Support + + + + + | Name | Relationship | Address | Phone | + + + + + | Samantha Ramos | ECON | [address] # | | | | | [place] | | | | | [address] | | + + + + + Care Team Providers + +------+ + | Care Teletypist Name | Role | Phone | + +------+ + | Erich Yates PA-C | PCP | | + +------+ + Reason for Visit +--------+ + | Reason | Comments | +--------+ + | Other | | +--------+ + Encounter Details +--------+ + + + + | Date | Type | Department | Care Team | Description | +--------+ + + + + | 08/31/ | Telephone | Digestive Health | Neri Steven MD | Other | | 2019 | | Center at [facility] [address] | [address] | | | | | [address] | [address] [place], | | | | | Mailcode: [place] | [place] [address] | | | | | for Health and | [phone] | | | | | [facility] [address] | | | | | | [place], [place] | | | | | | [address] | | | | | | [phone] | | | +--------+ + + + [...]
--- OUTSIDE RECORDS SUMMARY | ~2020-02-15 | XMS | Encounter Summary ---
Demographics + + + | Address | [address] | | | [place] [address] | + + + | Home Phone | | + + + | Preferred Language | Unknown | + + + | Marital Status | Single | + + + | Sabianism Affiliation | NON | + + + [...] | Samantha Ramos | ECON | [address] # | | | | | [place] | | | | | [address] | | + + + + + Care Team Providers + +------+ + | Care Brand Designer Name | Role | Phone | + [...] | 06/08/ | Refill | Pediatric | Jude Ashanti Can, | Refill Request | | 2006 | | Endocrinology at | MD [address] [facility] | | | | | [place] | [address] | | | | | [facility] | [place], [place] | | | | | [address] | [address] | | | | | [place] | [phone] | | | | | [place], [place] | | | | | | [address] | | | | | | [phone] | | | +--------+--------+ + + + [...]
--- OUTSIDE RECORDS SUMMARY | ~2020-02-15 | XMS | Encounter Summary ---
Demographics + + + | Address | [address] | | | [place] [address] | + + + | Home Phone | | + + + | Preferred Language | Unknown | + + + | Marital Status | Single | + + + | Sikh Affiliation | Unknown | + + + | Race | Unknown | + + + | Ethnic Group | Unknown | + + + Author + + + | Author | [facility] | | | and [place] | + + + | Organization | [facility] | | | [...] [place] | | | | | [address] | | + + + + + Care Team Providers + +------+ + | Care Sport Psychologist Name | Role | Phone | + +------+ + | Erich Yates | PCP | | + +------+ + Encounter Details +--------+ + + + + | Date | Type | Department | Care Team | Description | +--------+ + + + + | 04/18/ | Orders Only | [facility] | Provider, | Chronic kidney | | 2018 | | SYSTEM GENERIC OP | [address] | disease, stage III | | | | CONVERSION [address] | [address] | (moderate) ([facility]); | | | | [address] [place], [place] | [place] [address] | Proteinuria; Type 1 | | | | [address] | | diabetes mellitus | | | | [phone] | | with diabetic | | | | | | nephropathy ([facility]); | | | | | | Chronic kidney | | | | | | disease, stage III | | | | | | (moderate) ([facility]) | +--------+ + + + + [...] 2020 | Office | | [address] [facility] | | | | Visit | | [address] [place], [place] | | | | | | [address] | | | | | | | [...] | | Indicated | | | (moderate) ([facility]) | 01/15/2021 | | | | | Proteinuria Type 1 | | | | | | diabetes mellitus | | | | | | with diabetic | | | | | | nephropathy ([facility]) | | | | | | Chronic kidney | | | | | | disease, stage III | | | | | | (moderate) ([facility]) | | + +------+--------+ + + | Protein/Creatinine | Lab | Routin | Chronic kidney | Expected: | | Ratio, Urine | | e | disease, stage III | 03/07/2019, Expires: | | | | | (moderate) ([facility]) | 01/15/2021 | | | | | Proteinuria Type 1 | | | | | | diabetes mellitus | | | | | | with diabetic | | | | | | nephropathy ([facility]) | | | | | | Chronic kidney | | | | | | disease, stage III | | | | | | (moderate) ([facility]) | | + +------+--------+ + + documented as of this encounter Visit Diagnoses + + | Diagnosis | + + | Chronic kidney disease, stage III (moderate) ([facility]) Chronic kidney disease, Stage III | | ([facility]) | + + | Proteinuria | + + | 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
--- OUTSIDE RECORDS SUMMARY | ~2020-02-15 | XMS | Encounter Summary ---
Demographics + + + | Address | [address] | | | [place] [address] | + + + | Home Phone | | + + + | Preferred Language | Unknown | + + + | Marital Status | Single | + + + | Quaker Affiliation | NON | + + + | Race | White | + + + | Ethnic Group | Not or | + + + Author + + + | Author | [facility] | + + + | Organization | [facility] | + + + | Address | Unknown | + + + | Phone | Unavailable | + + + Support + + + + + | Name | Relationship | Address | Phone | + + + + + | Samantha Ramos | ECON | [address] # | | | | | [place] | | | | | [address] | | + + + + + Care Team Providers + +------+ + | Care Small Business Banking Officer Name | Role | Phone | [...] | | | | | [facility] | [facility] [address] | | | | | | CLINIC | [place] | | | | | | FIFI | [address] | | | | | | BUILDING | [place], [place] | | | | | | [address] | [address] | | | | | | [address] | Phone: | | | | | | [place], | [phone] | | | | | | [place] [address] | Fax: | | | | | | Phone: | [phone] | | | | | | [phone] | | | | | | | Fax: | | | | | | | [phone] | | +--------+--------+ + + + + [...] | | | | [facility] | [place], [place] | | | | | [address] | [address] | | | | | [place] | [phone] | | | | | [place], [place] | | | | | | [address] | | | | | | [phone] | | | +--------+ + + + [...] as of this encounter Progress Notes Interface, Jewelry Department Supervisor In - 12/15/2006 6:28 AM JOHNNY [id number] NAHOMY Durbin [id number] Clinic Date: 11/02/2006 Clinic: Pediatric Endocrinology Problem [...] regimen as necessary. Ashanti Roque M.D. / [id number] / [id number] / [id number] / [id number] cc: Neri Mojica M.D. [address] [place], [place] MedRecNo: [id number], Account: [id number], DocSeq: [id number] Addendum December 09 2006 Alin's random urine [...] VERDE | [address] | [place], [place] | | | [facility] POINT OF CARE | [facility] | [address] | | | TESTS | | | | + + + + + | [facility] CARE | [address] | [place], [place] | | | TESTS | [facility] | [address] | | + + + + + documented in this encounter Visit Diagnoses Not on filedocumented in this encounter"
--- OUTSIDE RECORDS SUMMARY | ~2020-02-15 | XMS | Encounter Summary ---
Demographics + + + | Address | [address] | | | [place] [address] | + + + | Home Phone | | + + + | Preferred Language | Unknown | + + + | Marital Status | Single | + + + | Buddhist Affiliation | NON | + + + [...] | Samantha Ramos | ECON | [address] # | | | | | [place], [place] | | | | | [address] | | + + + + + Care Team Providers + +------+ + | Care Director Of It Operations Name | Role | Phone | + +------+ + | Erich Yates PA-C | PCP | | + +------+ + Encounter Details +--------+--------+ + + + | Date | Type | Department | Care Team | Description | +--------+--------+ + + + | 07/02/ | Travel | | | | | [...]
--- OUTSIDE RECORDS SUMMARY | ~2020-02-15 | XMS | Encounter Summary ---
Demographics + + + | Address | [address] | | | [place] [address] | + + + | Home Phone | | + + + | Preferred Language | Unknown | + + + | Marital Status | Single | + + + | Voodoo Affiliation | NON | + + + [...] | Samantha Ramos | ECON | [address] # | | | | | [place] | | | | | [address] | | + + + + + Care Team Providers + +------+ + | Care District Engineer Name | Role | Phone | [...] | Only | [address] [address] | ASSOCIATE PROFESSOR OF PSYCHOLOGY [address] | | | | | [address] | [address] | | | | | Mailcode: [address] | [place] [address] | | | | | [facility] | [phone] | | | | | [place], [place] | | | | | | [address] | | | | | | [phone] | | | +--------+ + + + [...]
--- OUTSIDE RECORDS SUMMARY | ~2020-02-15 | XMS | Encounter Summary ---
Demographics + + + | Address | [address] | | | [place] [address] | + + + | Home Phone | | + + + | Preferred Language | Unknown | + + + | Marital Status | Single | + + + | Temple Affiliation | Unknown | + + + | Race | Unknown | + + + | Ethnic Group | Unknown | + + + Author + + + | Author | [facility] | | | and [place] | + + + | Organization | [facility] | | | and [...] [place] | | | | | [address] | | + + + + + Care Team Providers + +------+ + | Care Foxer Name | Role | Phone | + [...] + + | 07/03/ | Telephone | [facility] | [facility], | Care Plan | | 2019 | | GASTROENTEROLOGY | DANA [address] | | | | | [address] [place] | [place], [address] | | | | | [address] [place], [place] | [place], [place] | | | | | [address] | [address] | | | | | [phone] | | | +--------+ + + + [...] 2019 | Office | | [address] [facility] | | | | Visit | | [address] [place] | | | | | | [address] | | | | | | | | +--------+ + + + + documented as of this encounter Visit Diagnoses Not on filedocumented in this encounter"
--- OUTSIDE RECORDS SUMMARY | ~2020-02-15 | XMS | Encounter Summary ---
Demographics + + + | Address | [address] | | | [place] [address] | + + + | Home Phone | | + + + | Preferred Language | Unknown | + + + | Marital Status | Single | + + + | Yazidi Affiliation | Unknown | + + + | Race | Unknown | + + + | Ethnic Group | Unknown | + + + Author + + + | Author | [facility] | | | and [place] | + + + | Organization | [facility] | | [...] [place] | | | | | [address] | | + + + + + Care Team Providers + +------+ + | Care Type Cutter Name | Role | Phone | + +------+ + | Erich Yates | PCP | | + +------+ + Encounter Details +--------+ + + + + | Date | Type | Department | Care Team | Description | +--------+ + + + + | 06/20/ | Orders Only | [facility] | Winston Whitman MD | CKD (chronic kidney | | 2019 | | NEPHROLOGY [place] | [address] [place] | disease), stage III | | | | [address] [place] | [address] [place], [place] | ([facility]) (Primary Dx) | | | | [address] [facility] [place] | [address] | | | | | [address] | | | | | | [phone] | | | +--------+ + + + [...] 2020 | Office | | [address] [facility] | | | | Visit | | [address] [place], [place] | | | | | | [address] | | | | | | | [...]
--- OUTSIDE RECORDS SUMMARY | ~2020-02-15 | XMS | Encounter Summary ---
Demographics + + + | Address | [address] | | | [place] [address] | + + + | Home Phone [...] + + + | Author | [facility] | | | and [place] | + + + | Organization | [facility] | | | and [place] | + + + | Address | Unknown | + + + | Phone | Unavailable | + + + Support + + + + + | Name | Relationship | Address | Phone | + + + + + | Gia Ramos | ECON | [address] | | | | | unit [place] | | | | | [address] | | + + + + + Care Team Providers + +------+ + | Care Customer Success Associate Name | Role | Phone | + +------+ + | Erich Yates | PCP | | + +------+ + Reason for Visit + + + | Reason | Comments | + + + | Referral | | + + + Encounter Details +--------+ + + + + | Date | Type | Department | Care Team | Description | +--------+ + + + + | 03/22/ | Telephone | [facility] | [facility], | Referral | | 2019 | | GASTROENTEROLOGY | DANA [address] | | | | | [address] [place] | [place], [address] | | | | | [address] [place], [place] | [place], [place] | | | | | [address] | [address] | | | | | [phone] | | | +--------+ + + + [...] 2019 | Office | | [address] [facility] | | | | Visit | | [address] [place] | | | | | | [address] | | | | | | | | +--------+ + + + + documented as of this encounter Visit Diagnoses Not on filedocumented in this encounter"
--- OUTSIDE RECORDS SUMMARY | ~2020-02-15 | XMS | Encounter Summary ---
Demographics + + + | Address | [address] | | | [place] [address] | + + + | Home Phone [...] | Samantha Ramos | ECON | [address] | | | | | [place], [place] | | | | | [address] | | + + + + + Care Team Providers + +------+ + | Care Organ Assembler Name | Role | Phone | + +------+ + | Neri Mojica MD | PCP | | + +------+ + Encounter Details +--------+ + + + + | Date | Type | Department | Care Team | Description | +--------+ + + + + | 12/05/ | Discharge | | Summary, Discharge | D/C Summary ODDS | | 2002 | Summary-Tra | | | | | | nscribed | | | | +--------+ + + [...] documented as of this encounter Discharge Summaries Interface, Facilities Maintenance Worker In - 04/08/2006 3:[address] [address] [facility] MEDICAL SUMMARY OF HOSPITALIZATION Med Rec No: [id number] Admission Date: 12/02/2002 Name: Brooks Marquez II Discharge Date: 12/05/2002 ATTENDING PHYSICIAN:Tereso Morocho M.D. PRINCIPAL FINAL DIAGNOSIS: Diabetic ketoacidosis. ADDITIONAL DIAGNOSES: Insulin-dependent diabetes. PRINCIPAL PROCEDURE: Insulin management. ADDITIONAL PROCEDURES: 1. Pediatric intensive care. 2. Intravenous fluids. 3. Insulin drip. REASON FOR ADMISSION: This patient is a 12-year-old male with diagnosis of insulin-dependent diabetes mellitus since April 2002 with no prior hospitalizations. The patient initially presented to the emergency department in [place] with four to five days of flu-like illness with minimal oral intake and vomiting. The patient had no vomiting on the day of admission, but was combative at home and went to the emergency department for evaluation. His last insulin dose was one day prior to admission. In the outside emergency department, blood sugar was 488 with a pH of 7.25, bicarbonate level of 6.9, and sodium of 128. He received 300 cc normal saline bolus, 5 units of regular insulin, and was started on IV fluids and an insulin drip. He was transferred to the [facility] Pediatric Intensive Care Unit. HOSPITAL COURSE: The patient was admitted to the PICU and was continued on insulin drip and IV fluids. On hospital day two, CBG with pH of 7.2, bicarbonate 14, which then increased to 21. The patient was switched to subcutaneous insulin and transferred to the general weinstein. The patient and family received diabetes education from the endocrinology team. A sas etl developer also worked closely with the family in educating on the [employer] diets. On the day of discharge, the patient was taking good p.o. and urine was clear of ketones. He demonstrated ability to draw insulin and self administer. CONDITION ON DISCHARGE: Stable. DISPOSITION: Home. DISCHARGE MEDICATIONS: Lantuss 30 units subcutaneously q.a.m. Novalog 8 units with breakfast. 16 units Humulin with lunch, 10 units Humulin with snack, 14 units Humulin with dinner. DISCHARGE INSTRUCTIONS: ACTIVITY: Normal. DIET: Breakfast 4 carbohydrates, lunch 8 carbohydrates, p.m. snack 5 carbohydrates, dinner 7 carbohydrates. May have 1 carbohydrate snack at bedtime. FOLLOW-UP: The patient and family are to call endocrinology on December 06, 2002, with capillary blood glucose levels. Eric Lindsey M.D. Tereso Morocho M.D. TC:[id number] cc: [id number] signed by Interface, Facilities Maintenance Worker In at 04/08/2006 3:07 AM [facility] in this encounter Plan of Treatment Not on filedocumented as of this encounter Visit Diagnoses Not on filedocumented in this encounter"
--- OUTSIDE RECORDS SUMMARY | ~2020-02-15 | XMS | Encounter Summary ---
Demographics + + + | Address | [address] | | | [place] [address] | + + + | Home Phone [...] + + + | Author | [facility] | + + + | Organization | [facility] | + + + | Address | Unknown | + + + | Phone | Unavailable | + + + Support + + + + + | Name | Relationship | Address | Phone | + + + + + | Samantha Ramos | ECON | [address] | | | | | [place] | | | | | [address] | | + + + + + Care Team Providers + +------+ + | Care Grain Elevator Clerk Name | Role | Phone | + [...] evaluation | | 2020 | cheduled | [facility] at | | | | | | [facility] | | | | | | [address] | | | | | | Mail Code: OC8PM | | | | | | [facility] | | | | | | and Healing, | | | | | | [address] | | | | | | [place], [place] | | | | | | [address] | | | | | | [phone] | | | +--------+ + + + [...] INSTRUCTIONS Eating/Drinking Instructions: Follow instructions provided by [facility] Endoscopy. You should have received these instruction s by mail or email. If you have not received them, contact Endoscopy at [phone]. General Medications Instructions Oral iron: If you [...] you are taking, please contact our of lorri. Other Important Guidelines Do not smoke, drink [...] Procedure check-in location: Day Stay Unit - [facility], 4th floor Room 4519 Procedure Check in [...] ch as Uber/Lyft), or public transportation. An Uber/Lyft/regional intermodal truck driver does not count as the [...] it is after office hours, call the [facility] pantograph operator at [phone] and ask them to page the on-c all GI provider. Your surgical team will decide when you are medically ready to go home. documented in this encounter Plan of Treatment Not on filedocumented as of this encounter Visit Diagnoses Not on filedocumented in this encounter"
--- OUTSIDE RECORDS SUMMARY | ~2020-02-15 | XMS | Encounter Summary ---
Demographics + + + | Address | [address] | | | [place] [address] | + + + | Home Phone | | + + + | Preferred Language | Unknown | + + + | Marital Status | Single | + + + | Nondenominational Affiliation | Unknown | + + + | Race | Unknown | + + + | Ethnic Group | Unknown | + + + Author + + + | Author | [facility] | | | and [place] | + + + | Organization | [facility] | | | and [place] | + + + | Address | Unknown | + + + | Phone | Unavailable | + + + Support + + + + + | Name | Relationship | Address | Phone | + + + + + | Gia Ramos | ECON | [address] | | | | | [address] | | | | | [address] | | + + + + + Care Team Providers + +------+ + | Care Compressor Station Operator Name | Role | Phone | + +------+ + | Emmanuel Saavedra PCP | | + +------+ + Encounter Details +--------+--------+ + + + | Date | Type | Department | Care Team | Description | +--------+--------+ + + + | 01/05/ | Intake | [facility] | | N/A | | 2019 | | [address]SF[address] | | | | | | [facility] | | | | | | [place], [place] | | | | | | [address] | | | | | | [phone] | | | +--------+--------+ + + + Social History + + [...] 2019 | Office | | [address] [facility] | | | | Visit | | [address] [place], [place] | | | | | | [address] | | | | | | | | +--------+ + + + + documented as of this encounter Visit Diagnoses Not on filedocumented in this encounter Additional Health Concerns + + + + | Infection | Noted Time | Resolved Time | + + + + | Rule out Gastroenteritis | 01/06/2020 4:07 AM | 01/06/2020 8:16 AM | | | PDT | PDT | + + + + | Rule out C. Difficile | 01/06/2020 4:07 AM | 01/06/2020 7:05 AM | | | PDT | PDT | + + + + | Rule out COVID-19 | 01/06/2020 6:04 PM | 01/07/2020 7:03 PM | | | PDT | PDT | + + + + documented as of this encounter"
--- OUTSIDE RECORDS SUMMARY | ~2020-02-15 | XMS | Clinical Summary ---
Demographics + + + | Address | [address] [facility] | | | [place] [address] | + + + | Home Phone | | + + + | Preferred Language | Unknown | + + + | Marital Status | Unknown | + + + | Oriental Orthodox Affiliation | Unknown | + + + | Race | Unknown | + + + | Ethnic Group | Unknown | + + + Author + + + | Author | [facility] (Historical as of | | | 05-12-19) | + + + | Organization | [facility] (Historical as of | | | 05-12-19) | + + + | Address | Unknown | + + + | Phone | Unavailable | + + + Support + + +---------+ + | Name | Relationship | Address | Phone | + + +---------+ + | Gia Ramos | ECON | Unknown | | + + +---------+ + Care Team Providers + +------+ + | Care Supervisor Refining Name | Role | Phone | + +------+ + | Erich Yates | PP | | + +------+ + Allergies + + + + + + | Active Allergy | Reactions | Severity | Noted | Comments | | | | | Date | | + + + + + + | Codeine | Nausea and Vomiting | Low | 06/16/20 | Projectile Vomit | | | | | 18 | | + + + + + + Current Medications + + +-------+---------+------+------+-------+ | Prescription | Sig. | Disp. | Refills | Star | End | Statu | | | | | | t | Date | s | | | | | | Date | | | + + +-------+---------+------+------+-------+ | insulin lispro, | Inject 0.1 Units/kg | | | | | Activ | | human, (HUMALOG) 100 | into the skin 3 | | | | | e | | UNIT/ML injection | (three) times daily | | | | | | | | before meals. | | | | | | + + +-------+---------+------+------+-------+ | | Take 1 tablet by | | | | | Activ | | HYDROcodone-acetamin | mouth every 6 (six) | | | | | e | | ophen (NORCO) | hours as needed for | | | | | | | 7.5-325 MG per | Pain. | | | | | | | tablet | | | | | | | + + +-------+---------+------+------+-------+ | potassium chloride | Take 10 mEq by mouth | | | | | Activ | | (K-DUR) 10 MEQ | 2 (two) times daily | | | | | e | | tablet | with meals. | | | | | | + + +-------+---------+------+------+-------+ | insulin glargine | Inject 40 Units into | | | | | Activ | | (LANTUS) 100 UNIT/ML | the skin nightly. | | | | | e | | injection | | | | | | | + + +-------+---------+------+------+-------+ | Furosemide (LASIX | Take 5 mg by mouth 2 | | | | | Activ | | PO) | (two) times daily. | | | | | e | + + +-------+---------+------+------+-------+ | lisinopril | Take 10 mg by mouth | | | | | Activ | | (ZESTRIL) 10 MG | daily. | | | | | e | | tablet | | | | | | | + + +-------+---------+------+------+-------+ | metoprolol | Take 50 mg by mouth | | | | | Activ | | (LOPRESSOR) 50 MG | 2 (two) times daily. | | | | | e | | tablet | | | | | | | + + +-------+---------+------+------+-------+ | omeprazole | Take 20 mg by mouth | | | | | Activ | | (PRILOSEC) 20 MG | 2 (two) times daily. | | | | | e | | capsule | | | | | | | + + +-------+---------+------+------+-------+ | ondansetron | Take 8 mg by mouth | | | | | Activ | | (ZOFRAN) 8 MG tablet | every 8 (eight) | | | | | e | | | hours as needed for | | | | | | | | Nausea. | | | | | | + + +-------+---------+------+------+-------+ | dicyclomine | Take 20 mg by mouth | | | | | Activ | | (BENTYL) 20 MG | every 6 (six) hours. | | | | | e | | tablet | | | | | | | + + +-------+---------+------+------+-------+ | ranitidine | Take 150 mg by mouth | | | | | Activ | | (RANITIDINE 150 MAX | 2 (two) times | | | | | e | | STRENGTH) 150 MG | daily. | | | | | | | tablet | | | | | | | + + +-------+---------+------+------+-------+ | tamsulosin | Take 0.4 mg by mouth | | | | | Activ | | (FLOMAX) 0.4 MG | After dinner. 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 | 01/15/2019 | | with type 1 diabetes mellitus (HCC) | | + + + | Hyperkalemia | 01/15/2019 | + + + | Electrolyte imbalance risk | 01/15/2019 | + + + | Metabolic acidosis | 01/15/2019 | + + + | Anemia of chronic renal failure, stage 3 (moderate) (HCC) | 01/15/2019 | + + + Family History + + +------+ + | [...] | + +------+--------+ + Social History + +-------+ +--------+------+ | [...] on file | | + + + Last Filed Vital Signs + + + + | Vital Sign | Reading | Time Taken | + + + + | Blood Pressure | 113/73 | 01/15/2019 2:53 PM PDT | + + + + | Pulse | 86 | 01/15/2019 2:53 PM PDT | + + + + | Temperature | - | - | + + + + | Respiratory Rate | - | - | + + + + | Oxygen Saturation | 100% | 01/15/2019 2:53 PM PDT | + + + + | Inhaled Oxygen | - | - | | Concentration | | | + + + + | Weight | 63 kg (138 lb 14.4 | 01/15/2019 2:53 PM PDT | | | oz) | | + + + + | Height | 188 cm (6' 2") | 01/15/2019 2:53 PM PDT | + + + + | Body Mass Index | 17.83 | 01/15/2019 2:53 PM PDT | + + + + Plan of Treatment + + + + + | Health Maintenance | Due Date | Last Done | Comments | + + + + + | Diabetic Eye Exam | | | | | | 0 | | | + + + + + | Diabetic Foot Exam | | | | | | 0 | | | + + + + + | Hemoglobin A1c | | 05/15/2018 | | | | 8 | | | + + + + + | Vaccine: Influenza | | 09/20/2018, 07/02/2015 | | | (Season Ended) | 0 | | | + + + + + | Vaccine: | | 02/17/2014, 05/09/2006, | | | Dtap/Tdap/Td (4 - | 4 | 05/15/1999 | | | Td) | | | | + + + + + | Vaccine: | Completed | 07/02/2015, 05/25/2014, | | | Pneumococcal 19-64 | | 04/10/2014 | | | Highest Risk | | | | + + + + + Results Not on filefrom Last 3 Months Insurance + +--------+ +------+-------+ + | Payer | Benefi | Subscriber | Type | Phone | Address | | | t Plan | ID | | | | | | / | | | | | | | Group | | | | | + +--------+ +------+-------+ + | MEDICAID | [place] | [id number] | | | [address] | | | [address] | | | | [place], [place] | | | [place] | | | | [address] | | | BIODIESEL PRODUCTION TECHNICIAN | | | | | + +--------+ +------+-------+ + + +--------+ +--------+ + + | Guarantor Name | Accoun | Relation to | Date | Phone | Billing Address | | | t Type | Patient | of | | | | | | | | | | + +--------+ +--------+ + + | BROOKS MARQUEZ | Person | Self [birth year] Home: | [address] | | | al/Fam | | 1990 | [phone] [address] [place], | | | [place] | | | [address] | [place] [address] | + +--------+ +--------+ + +
--- OUTSIDE RECORDS SUMMARY | ~2020-02-15 | XMS | Encounter Summary ---
Demographics + + + | Address | [address] | | | [place] [address] | + + + | Home Phone | | + + + | Preferred Language | Unknown | + + + | Marital Status | Single | + + + | Zoroastrian Affiliation | NON | + + + [...] Samantha Ramos | ECON | [address] | | | | | [place] | | | | | [address] | | + + + + + Care Team Providers + +------+ + | Care Production Service Manager Name | Role | Phone | + +------+ + | Erich Yates PA-C | PCP | | + +------+ + Encounter Details +--------+ + + + + | Date | Type | Department | Care Team | Description | +--------+ + + + + | 11/28/ | Anesthesia | [facility] at [facility] | Beth Nash, | | | 2019 | Event | [place] [address] | RN [address] [facility] | | | | | Elliott Nguyen Mailcode: | [address] | | | | | [facility] for | [place], [place] | | | | | Health and Healing, | [address] | | | | | [address] | | | | | | [place], [place] | | | | | | [address] | | | | | | [phone] | | | +--------+ + + + [...]
--- OUTSIDE RECORDS SUMMARY | ~2020-02-15 | XMS | Encounter Summary ---
Demographics + + + | Address | [address] | | | [place] [address] | + + + | Home Phone | | + + + | Preferred Language | Unknown | + + + | Marital Status | Single | + + + | Advent Affiliation | Unknown | + + + | Race | Unknown | + + + | Ethnic Group | Unknown | + + + Author + + + | Author | [facility] | | | and [place] | + + + | Organization | [facility] | | | and [...] [place] | | | | | [address] | | + + + + + Care Team Providers + +------+ + | Care Jute Bag Cutting Machine Operator Name | Role | Phone | + +------+ + | Erich Yates | PCP | | + +------+ + Reason for Visit +--------+ + | Reason | Comments | +--------+ + | Other | Appointment reminder call | +--------+ + Encounter Details +--------+ + + + + | Date | Type | Department | Care Team | Description | +--------+ + + + + | 06/22/ | Telephone | [facility] | Winston Whitman MD | Other (Appointment | | 2019 | | NEPHROLOGY [place] | [address] | reminder call) | | | | [address] | [address] [facility] [place] | | | | | [address] [place], [place] | [address] | | | | | [address] | | | | | | [phone] | | | +--------+ + + + [...] 2019 | Office | | [address] [facility] | | | | Visit | | [address] [place] | | | | | | [address] | | | | | | | | +--------+ + + + + documented as of this encounter Visit Diagnoses Not on filedocumented in this encounter"
--- OUTSIDE RECORDS SUMMARY | ~2020-02-15 | XMS | Encounter Summary ---
Demographics + + + | Address | [address] | | | [place] [address] | + + + | Home Phone | | + + + | Preferred Language | Unknown | + + + | Marital Status | Single | + + + | Cheondoism Affiliation | Unknown | + + + [...] [place] | | | | | [address] | | + + + + + Care Team Providers + +------+ + | Care Lawnmower Mechanic Name | Role | Phone | [...] | | complication | [place], | [place] [address] | | | | | s ([facility]) | [place] [address] | Phone: | | | | | Unspecified | Phone: | [phone] | | | | | abdominal | [phone] | Fax: | | | | | pain | Fax: | [phone] | | | | | Functional | [phone] | | | | | | intestinal [...] | [address] [place] | [place], [address] [address] | (Primary Dx); Weight | | | | [address] [place], [place] | [place], [place] | loss; Malnutrition, | | | | [address] | [address] | unspecified type | | | | [phone] | | ([facility]); 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 | | | | | | ([facility]); Anemia of | | | [...] as of this encounter Progress Notes Vicky KelleyDANA - 02/14/2019 10:00 AM PDTFormatting of this [...] STENT PLACEMENT; Surgeon: Tc Mora MD; Location: [facility] [place] Family History Problem Relation [...] 0 0 - 4 Final UA Specific Molino, External 01/21/2019 1.016 1.005 - 1.03 Final [...] 3 (moderate) (HCC) Plan: Urgent referral to [facility] gastro enterology. Patient significantly malnourished due to nausea and vomiting. CC: VIKI Anand This note was dictated using voice recognition software. Please contact me if there are an y questions regarding its content.Electronically signed by DANA Banuelos at 02/14 12:42 PM PDTdocumented in this encounter Plan of Treatment +--------+ + + + + | Date | Type | Specialty | Care Team | Description | +--------+ + + + + | 03/03/ | Virtual | Nephrology | Winston Whitman MD | | | 2020 | Office | | [address] [facility] | | | | Visit | | [facility] | | | | | | [address] | | | | | | | [...]
--- OUTSIDE RECORDS SUMMARY | ~2020-02-15 | XMS | Encounter Summary ---
Demographics + + + | Address | [address] | | | [place] [address] | + + + | Home Phone [...] + + | Author | [facility] | | | and [place] | + + + | Organization | [facility] | | [...] [place] | | | | | [address] | | + + + + + Care Team Providers + +------+ + | Care Welt Treater Name | Role | Phone | + +------+ + | Erich Yates | PCP | | + +------+ + Encounter Details +--------+ + + + + | Date | Type | Department | Care Team | Description | +--------+ + + + + | 09/13/ | Orders Only | [facility] | Conversion | | | 2017 | | [place] | Transaction, | | | | | [address] | Provider Unknown | | | | | [address] [place], [place] | [phone] | | | | | [address] | (Fax) | | | | | [phone] | | | +--------+ + + + [...] 2019 | Office | | [address] | | | | Visit | | [address] [place], [place] | | | | | | [address] | | | | | | | | +--------+ + + + + documented as of this encounter Procedures + +--------+ + + + | Procedure Name | Priori | Date/Time | Associated Diagnosis | Comments | | | ty | | | | + +--------+ + + + | EXTERNAL LAB: CBC | Routin | 09/13/2018 | | Results for this | | | e | 6:20 AM | | procedure are in the | | | | PST | | results section. | + +--------+ + + + | LIPASE | Routin | 09/13/2018 | | Results for this | | | e | 6:20 AM | | procedure are in the | | | | PST | | results section. | + +--------+ + + + | COMPREHENSIVE | Routin | 09/13/2018 | | Results for this | | METABOLIC PANEL | e | 6:20 AM | | procedure are in the | | | | PST | | results section. | + +--------+ + + + | URINALYSIS, | Routin | 09/13/2018 | | Results for this | | MICROSCOPIC ONLY | e | 5:43 AM | | procedure are in the | | | | PST | | results section. | + +--------+ + + + | EXTERNAL LAB: CBC | Routin | 05/24/2018 | | Results for this | | | e | 9:25 AM | | procedure are in the | | | | PDT | | results section. | + +--------+ + + + | URINALYSIS, | Routin | 05/24/2018 | | Results for this | | MICROSCOPIC ONLY | e | 9:25 AM | | procedure are in the | | | | PDT | | results section. | + +--------+ + + + | MICROALBUMIN/CREATIN | Routin | 05/24/2018 | | Results for this | | INE RATIO, URINE | e | 9:25 AM | | procedure are in the | | TEST | | PDT | | results section. | + +--------+ + + + | COMPREHENSIVE | Routin | 05/24/2018 | | Results for this | | METABOLIC PANEL | e | 9:25 AM | | procedure are in the | | | | PDT | | results section. | + +--------+ + + + documented in this encounter Results External Lab: CBC (09/13/2018 6:20 AM PST) + + + + + + | Component | Value | Ref Range | Performed | Pathologist | | | | | At | Signature | + + + + + + | WBC | 9.4 | 4.5 - 11.0 10 | EXTERNAL | | | | | | LAB | | + + + + + + | Red Blood | 3.41 (A) | 4.3 - 5.7 10 | EXTERNAL | | | Cells | | | LAB | | | Counted | | | | | + + + + + + | Hemoglobin | 10.2 (A) | 13.5 - 18.0 | EXTERNAL | | | | | g/dL | LAB | | + + + + + + | Hematocrit, | 31.3 (A) | 41 - 50 % | EXTERNAL | | | POC | | | LAB | | + + + + + + | MCV | 91.6 | 81 - 99 fL | EXTERNAL [...] + + + + | Platelet | 212 | 140 - 440 K/ L | EXTERNAL | | | Count | | | LAB | | | Plasma | | | | | + + + + + + | RDW-CV | 14.2 | 10.5 - 15.0 % | EXTERNAL [...] + + + | % Segmented | 65.7 | 39 - 80 % | EXTERNAL | | | | | | LAB | | | Neutrophils | | | | | + + + + + + | % | 16.4 (A) | 24 - 44 % | EXTERNAL | | | Lymphocytes | | | LAB | | + + + + + + | % Monocytes | 10.8 | 0 - 12 % | EXTERNAL | | | | | | LAB | | + + + + + + | % | 5.4 | 0 - 6 % | EXTERNAL | | | Eosinophils | | | LAB | | + + + + + + | % Basophils | 1.7 | 0 - 2 % | EXTERNAL [...] | | | + +---------+ + + Lipase (09/13/2018 6:20 AM PST) + +-------+ + + + | Component | Value | Ref Range | Performed | Pathologist | | | | | At | Signature | + +-------+ + + + | Lipase | 38 | 11 - 82 units/L | EXTERNAL | | | | | [...] | | | + +---------+ + + Comprehensive Metabolic Panel (09/13/2018 6:20 AM PST) + + + + + + | Component | Value | Ref Range | Performed | Pathologist | | | | | At | Signature | + + + + + + | Glucose, | 230 (A) | 70 - 100 mg/dL | EXTERNAL | | | Fasting | | | LAB | | + + + + + + | BUN | 45 (A) | 6 - 23 mg/dL | EXTERNAL | | | | | | LAB | | + + + + + + | Creatinine | 2.07 (A) | 0.60 - 1.35 | EXTERNAL | | | | | mg/dL | LAB | | + + + + + + | BUN/Creatin | 21.7 | 6.0 - 28.6 | EXTERNAL | | | ine Ratio | | | LAB | | + + + + + + | Calcium | 8.3 (A) | 8.5 - 10.3 | EXTERNAL | | | | | mg/dL | LAB | | + + + + + + | Protein, | 6.4 | 6.0 - 8.3 g/dL | EXTERNAL | | | Total | | | LAB | | + + + + + + | Albumin | 3.2 (A) | 3.5 - 5.0 | EXTERNAL | | | | | | LAB | | + + + + + + | Globulin | 3.2 | 1.8 - 3.5 | EXTERNAL | | | | | | LAB | | + + + + + + | A/G Ratio | 1.0 (A) | 1.1 - 2.4 | EXTERNAL | | | | | | LAB | | + + + + + + | Bilirubin | 0.2 | 0.0 - 1.2 mg/dL | EXTERNAL | | | Total | | | LAB | | + + + + + + | ALP, | 93 | 31 - 120 | EXTERNAL | | | External | | | LAB | | + + + + + + | ALT | 23 | 7 - 52 | EXTERNAL | | | | | | LAB | | + + + + + + | AST | 25 | 13 - 39 U/L | EXTERNAL | | | | | | LAB | | + + + + + + | Na | 135 | 132 - 143 | EXTERNAL | | | | | mmol/L | LAB | | + + + + + + | K | 5.4 (A) | 3.6 - 5.1 | EXTERNAL | | | | | mmol/L | LAB | | + + + + + + | Cl | 106 | 95 - 112 mmol/L | EXTERNAL | | | | | | LAB | | + + + + + + | CO2 | 21 | 19 - 31 mmol/L | EXTERNAL | | | | | | LAB | | + + + + + + | Anion Gap | 13.4 | 7 - 21 mmol/L | EXTERNAL | | | | | | LAB | | + + + + + + | Estimated | 38 (A) | 60 - 140 mg/dL | EXTERNAL | | | GFR [...] | | | + +---------+ + + Urinalysis, Microscopic Only (09/13/2018 5:43 AM PST) + + + + + + | Component | Value | Ref Range | Performed | Pathologist | | | | | At | Signature | + + + + + + | Color | Yellow | | EXTERNAL | | | | | | LAB | | + + + + + + | Clarity | Clear | | EXTERNAL | | | | | | LAB | | + + + + + + | Specific | 1.014 | 1.005 - 1.030 | EXTERNAL | | | [place], | | | LAB | | | Urine | | | | | + + + + + + | Leukocyte | Negative | | EXTERNAL | | | Esterase, [...] + + + + | Protein, | TraceComment: 100 | | EXTERNAL | | | Urine | | | LAB | | + + + + + + | pH, Urine | 5 | 5 - 9 | EXTERNAL | | | | | | LAB | | + + + + + + | Blood, | Positive | | EXTERNAL | | | Urine | | | LAB | | + + + + + + | Ketones | Negative | | EXTERNAL | | | | | | LAB | | + + + + + + | Bilirubin, | Negative | | EXTERNAL | | | Urine | | | LAB | | + + + + + + | Glucose, | Trace | | EXTERNAL | | | Urine [...] | | | + +---------+ + + Microalbumin/Creatinine Ratio, Urine (05/24/2018 9:25 AM PDT) + + + + + + | Component | Value | Ref Range | Performed | Pathologist | | | | | At | Signature | + + + + + + | ALBUMIN/CRE | 2275.2 (A) | 0 - 30 | EXTERNAL | | | ATININE | | | LAB | | | RATIO.URINE | | | | | | .ORD.MG/G | | | | | | (DONOVAN) | | | | | | | [...] | | | + +---------+ + + Urinalysis, Microscopic Only (05/24/2018 9:25 AM PDT) + + + + + + | Component | Value | Ref Range | Performed | Pathologist | | | | | At | Signature | + + + + + + | Color | Yellow | | EXTERNAL | | | | | | LAB | | + + + + + + | Clarity | Clear | | EXTERNAL | | | | | | LAB | | + + + + + + | Specific | 1.013 | 1.005 - 1.030 | EXTERNAL | | | [place], | | | LAB | | | Urine | | | | | + + + + + + | Leukocyte | Trace | | EXTERNAL | | | Esterase, [...] + + + + | Protein, | TraceComment: 300 | | EXTERNAL | | | Urine | | | LAB | | + + + + + + | pH, Urine | 5 | 5 - 9 | EXTERNAL | | | | | | LAB | | + + + + + + | Blood, | Negative | | EXTERNAL | | | Urine | | | LAB | | + + + + + + | Ketones | Negative | | EXTERNAL | | | | | | LAB | | + + + + + + | Bilirubin, | Negative | | EXTERNAL | | | Urine | | | LAB | | + + + + + + | Glucose, | Negative | | EXTERNAL | | [...] + +---------+ + + External Lab: CBC (05/24/2018 9:25 AM PDT) + + + + + + | Component | Value | Ref Range | Performed | Pathologist | | | | | At | Signature | + + + + + + | WBC | 9.1 | 4.5 - 11.0 10 | EXTERNAL | | | | | | LAB | | + + + + + + | Red Blood | 3.94 (A) | 4.3 - 5.7 10 | EXTERNAL | | | Cells | | | LAB | | | Counted | | | | | + + + + + + | Hemoglobin | 11.7 (A) | 13.5 - 18.0 | EXTERNAL | | | | | g/dL | LAB | | + + + + + + | Hematocrit, | 38.3 (A) | 41 - 50 % | [...] + + + + | MCHC | 32 | 30 - 35 g/dL | EXTERNAL | | | | | | LAB | | + + + + + + | Platelet | 244 | 140 - 440 K/ L | EXTERNAL | | | Count | | | LAB | | | Plasma | | | | | + + + + + + | RDW-CV | 14.6 | 10.5 - 15.0 % | EXTERNAL [...] + + + | % Segmented | 59.6 | 39 - 80 % | EXTERNAL | | | | | | LAB | | | Neutrophils | | | | | + + + + + + | % | 26.2 | 24 - 44 % | EXTERNAL | | | Lymphocytes | | | LAB | | + + + + + + | % Monocytes | 7.5 | 0 - 12 % | EXTERNAL | | | | | | LAB | | + + + + + + | % | 4.8 | 0 - 6 % | EXTERNAL | | | Eosinophils | | | LAB | | + + + + + + | % Basophils | 1.9 | 0 - 2 % | EXTERNAL [...] | | | + +---------+ + + Comprehensive Metabolic Panel (05/24/2018 9:25 AM PDT) + + + + + + | Component | Value | Ref Range | Performed | Pathologist | | | | | At | Signature | + + + + + + | Glucose, | 98 | 70 - 100 mg/dL | EXTERNAL | | | Fasting | | | LAB | | + + + + + + | BUN | 45 (A) | 6 - 23 mg/dL | EXTERNAL | | | | | | LAB | | + + + + + + | Creatinine | 1.44 (A) | 0.60 - 1.35 | EXTERNAL | | | | | mg/dL | LAB | | + + + + + + | BUN/Creatin | 31.3 (A) | 6.0 - 28.6 | EXTERNAL | | | ine Ratio | | | LAB | | + + + + + + | Calcium | 9.3 | 8.5 - 10.3 | EXTERNAL | | | | | mg/dL | LAB | | + + + + + + | Protein, | 6.2 | 6.0 - 8.3 g/dL | EXTERNAL | | | Total | | | LAB | | + + + + + + | Albumin | 3.3 (A) | 3.5 - 5.0 | EXTERNAL | | | | | | LAB | | + + + + + + | Globulin | 2.9 | 1.8 - 3.5 | EXTERNAL | | | | | | LAB | | + + + + + + | A/G Ratio | 1.1 | 1.1 - 2.4 | EXTERNAL | | | | | | LAB | | + + + + + + | Bilirubin | 0.3 | 0.0 - 1.2 mg/dL | EXTERNAL | | | Total | | | LAB | | + + + + + + | ALP, | 77 | 31 - 120 | EXTERNAL | | | External | | | LAB | | + + + + + + | ALT | 13 | 7 - 25 U/L | EXTERNAL | | | | | | LAB | | + + + + + + | AST | 18 | 13 - 39 U/L | EXTERNAL | | | | | | LAB | | + + + + + + | Na | 139 | 132 - 143 | EXTERNAL | | | | | mmol/L | LAB | | + + + + + + | K | 4.8 | 3.6 - 5.1 | EXTERNAL | | | | | mmol/L | LAB | | + + + + + + | Cl | 102 | 95 - 112 mmol/L | EXTERNAL | | | | | | LAB | | + + + + + + | CO2 | 24 | 19 - 31 mmol/L | EXTERNAL | | | | | | LAB | | + + + + + + | Anion Gap | 17.8 | 7 - 21 mmol/L | EXTERNAL | | | | | | LAB | | + + + + + + | Estimated | 58 (A) | 60 - 140 mg/dL | EXTERNAL | | | GFR [...]
--- OUTSIDE RECORDS SUMMARY | ~2020-02-15 | XMS | Encounter Summary ---
Demographics + + + | Address | [address] | | | [place] [address] | + + + | Home Phone | | + + + | Preferred Language | Unknown | + + + | Marital Status | Single | + + + | Anabaptist Affiliation | NON | + + + [...] Samantha Ramos | ECON | [address] | | | | | [place] | | | | | [address] | | + + + + + Care Team Providers + +------+ + | Care Calender Tender Name | Role | Phone | + +------+ + | Erich Yates PA-C | PCP | | + +------+ + Reason for Referral Diagnostic Testing (Routine) +--------+--------+ + + + + | Status | Reason | Specialty | Diagnoses / | Referred By | Referred To | | | | | Procedures | Contact | Contact | +--------+--------+ + + + + | Closed | | Radiology | Diagnoses | Maurizio | | | | | | Diabetic | MD Neri | | | | | | gastroparesi | [address] [facility] | | | | | | s associated | [address] | | | | | | with type 1 | Rd | | | | | | diabetes | [place], [place] | | | | | | mellitus | [address] | | | | | | ([facility]) | Phone: | | | | | | Procedures | [phone] | | | | | | NM GASTRIC | Fax: | | | | | | EMPTYING | [phone] | | | | | | STUDY NM | | | | | | | GASTRIC | | | | | | | EMPTYING | | | | | | | STUDY | | | +--------+--------+ + + + + Consultation (Routine) + +--------+ + + + [...] | with type 1 | Rd | [address] | | | | | diabetes | [place], [place] | floor | | | | | mellitus | [address] | [place], [place] | | | | | ([facility]) | Phone: | [address] | | | | | Procedures | [phone] | Phone: | | | | | CONSULT TO | Fax: | [phone] | | | | | GI PROCEDURE | [phone] | Fax: | | | | | UNIT: EGD | | [phone] | + +--------+ + + + + Encounter Details +--------+ + + + + | Date | Type | Department | Care Team | Description | +--------+ + + + + | 07/04/ | Lan Manager | Digestive Health | Neri Steven MD | Diabetic | | 2019 | | Center at [facility] [address] | [address] | gastroparesis | | | | [address] | [address] [place], | associated with type | | | | Mailcode: [place] | [place] [address] | 1 diabetes mellitus | | | | for Health and | [phone] | ([facility]) (Primary Dx) | | | | Healing, [address] | | | | | | [place], [place] | | | | | | [address] | | | | | | [phone] | | | +--------+ + + + [...] | | + +---------+--------+ + + | NM GASTRIC EMPTYING | Imaging | Routin | Diabetic | Expected: | | STUDY | | e | gastroparesis | 07/04/2019, Expires: | | | | | associated with type | 08/04/2020 | | | | | 1 diabetes mellitus | | | | | | ([facility]) | | + +---------+--------+ + + documented as of this encounter Visit Diagnoses + + | Diagnosis | + + | Diabetic gastroparesis associated with type 1 diabetes mellitus (HCC) - Primary | + + documented in this encounter"
--- OUTSIDE RECORDS SUMMARY | ~2020-02-15 | XMS | Encounter Summary ---
Demographics + + + | Address | [address] | | | [place] [address] | + + + | Home Phone | | + + + | Preferred Language | Unknown | + + + | Marital Status | Single | + + + | Bahai Affiliation | Unknown | + + + | Race | Unknown | + + + | Ethnic Group | Unknown | + + + Author + + + | Author | [facility] | | | and [place] | + + + | Organization | [facility] | | | [...] [place] | | | | | [address] | | + + + + + Care Team Providers + +------+ + | Care Director Information Name | Role | Phone | + [...] + + | 09/29/ | Office | [facility] | Tc Mora | Nephrolithiasis | | 2019 | Visit | [address] | MD [address] | (Primary Dx); | | | | OMER Ricardo | [place] | Hyperkalemia; Stage | | | | [address] | [address] | 3 chronic kidney | | | | [phone] | | disease (HCC) | +--------+---------+ + [...] after the clinic visit today to daisy arias his primary care provider a call and [...] [facility] [place] Family History: Family History Problem [...] pH, Urine 6.0 5.0 - 8.0 Specific [place] 1.012 1.001 - 1.030 Protein, Urine 100 [...] ECG No previous ECGs available Confirmed by KARO FLORES, CRISTINE ([id number]) on 09/21/2018 6:31:13 AM Lab Results Component [...] have not thoroughly proofread this note, and academic affairs dean errors are very likely to occur. CC: VIKI Anand documented in this encounter Plan of Treatment +--------+ + + + + | Date | Type | Specialty | Care Team | Description | +--------+ + + + + | 03/03/ | Virtual | Nephrology | Winston Whitman MD | | | 2020 | Office | | [address] [facility] | | | | Visit | | [facility] | | | | | | [address] | | | | | | | [...]
--- OUTSIDE RECORDS SUMMARY | ~2020-02-15 | XMS | Encounter Summary ---
Demographics + + + | Address | [address] | | | [place] [address] | + + + | Home Phone | | + + + | Preferred Language | Unknown | + + + | Marital Status | Single | + + + | Latter Day Affiliation | NON | + + + [...] | Samantha Ramos | ECON | [address] | | | | | [place] | | | | | [address] | | + + + + + Care Team Providers + +------+ + | Care Boatbuilder Supervisor Name | Role | Phone | + +------+ + | Neri Mojica MD | PCP | | + +------+ + Encounter Details +--------+ + + + + | Date | Type | Department | Care Team | Description | +--------+ + + + + | 07/16/ | Documentati | Orthopaedics at | Neri Mcgarry, | | | 2005 | on | [address] | [address] | | | | | [address] | [address] | | | | | Mailcode: PV430 | [facility] [place] | | | | | [facility] | [address] | | | | | [place], [place] | [phone] | | | | | [address] | | | | | | [phone] | | | +--------+ + + + [...]
--- OUTSIDE RECORDS SUMMARY | ~2020-02-15 | XMS | Encounter Summary ---
Demographics + + + | Address | [address] | | | [place] [address] | + + + | Home Phone [...] Samantha Ramos | ECON | [address] # | | | | | [place] | | | | | [address] | | + + + + + Care Team Providers + +------+ + | Care Casino Host Name | Role | Phone | + [...] Pharmacy | | | | | | [address] | | | | | | [place], [place] | | | | | | [address] | | | | | | [phone] | | | +--------+ + + + [...]
--- OUTSIDE RECORDS SUMMARY | ~2020-02-15 | XMS | Encounter Summary ---
Demographics + + + | Address | [address] | | | [place] [address] | + + + | Home Phone | | + + + | Preferred Language | Unknown | + + + | Marital Status | Single | + + + | Congregation Affiliation | NON | + + + [...] + + + + + | Samantha Rmaos | ECON | [address] | | | | | [place], [place] | | | | | [address] | | + + + + + Care Team Providers + +------+ + | Care Heel Boom Operator Name | Role | Phone | [...]
--- OUTSIDE RECORDS SUMMARY | ~2020-02-15 | XMS | Encounter Summary ---
Demographics + + + | Address | [address] | | | [place] [address] | + + + | Home Phone | | + + + | Preferred Language | Unknown | + + + | Marital Status | Single | + + + | Jewish Affiliation | NON | + + + [...] | Samantha Ramos | ECON | [address] | | | | | [place] | | | | | [address] | | + + + + + Care Team Providers + +------+ + | Care Medical Scientific Officer Name | Role | Phone | [...] [address] | | | | | [place], [place] | [place], [place] | | | | | [address] | [address] | | | | | [phone] | [phone] | | | | | | | [...] | [facility]/ | | | | | [facility] | | | | | | [employer]. | | | | + + + + + + + + | Specimen | + + | | + + + + + + + | Performing | Address | City/State/Zipcode | Phone Number | | Organization | | | | + + + + + | [facility] | [address] | [place] [address] | | | LABORATORY | | | [...] [place] | | | | | | [facility]. | | | | + + + + + + + + | Specimen | + + | | + + + + + + + | Performing | Address | City/State/Zipcode | Phone Number | | Organization | | | | + + + + + | [facility] | [address] | [place] [address] | | | LABORATORY | | | | + + + + + documented in this encounter Visit Diagnoses Not on filedocumented in this encounter"
--- OUTSIDE RECORDS SUMMARY | ~2020-02-15 | XMS | Encounter Summary ---
Demographics + + + | Address | [address] | | | [place] [address] | + + + | Home Phone | | + + + | Preferred Language | Unknown | + + + | Marital Status | Single | + + + | Pentecostal Affiliation | Unknown | + + + | Race | Unknown | + + + | Ethnic Group | Unknown | + + + Author + + + | Author | [facility] | | | and [place] | + + + | Organization | [facility] | | | [...] [place] | | | | | [address] | | + + + + + Care Team Providers + +------+ + | Care Newspaper Photo Editor Name | Role | Phone | + +------+ + | Erich Yates | PCP | | + +------+ + Encounter Details +--------+ + + + + | Date | Type | Department | Care Team | Description | +--------+ + + + + | 05/15/ | Abstract | [facility] | Divya, | | | 2017 | | GASTROENTEROLOGY | MD [address] | | | | | [address] [facility] | [place]. | | | | | [address] [place], [place] | [place] [address] | | | | | [address] | | | | | | [phone] | | | +--------+ + + + [...] 2019 | Office | | [address] [facility] | | | | Visit | | [address] [facility] [place] | | | | | | [address] | | | | | | | | +--------+ + + + + documented as of this encounter Visit Diagnoses Not on filedocumented in this encounter"
--- OUTSIDE RECORDS SUMMARY | ~2020-02-15 | XMS | Encounter Summary ---
Demographics + + + | Address | [address] | | | [place] [address] | + + + | Home Phone [...] Samantha Ramos | ECON | [address] | | | | | [place] | | | | | [address] | | + + + + + Care Team Providers + +------+ + | Care Access Coordinator Name | Role | Phone | + +------+ + PCP | Unavailable | + +------+ + Encounter Details +--------+ + + + + | Date | Type | Department | Care Team | Description | +--------+ + + + + | 09/30/ | Office | [facility] | Clinic, Pediatric | Progress Note | | 2005 | Visit-Trans | BACKBREAKER | Endocrinology | | | | cribed [...] as of this encounter Progress Notes Interface, Gravity Prospecting Operator In - 04/25/2005 12:43 AM PDT [id number] NAHOMY RAYMOND BR[facility] Date: 09/30/2004 [...] eats. DENISSE Carr, CNSD, LD AT / [id number] / [id number] / [id number] / documented i n this encounter Plan of Treatment Not on filedocumented as of this encounter Visit Diagnoses Not on filedocumented in this encounter"
--- OUTSIDE RECORDS SUMMARY | ~2020-02-15 | XMS | Encounter Summary ---
Demographics + + + | Address | [address] | | | [place] [address] | + + + | Home Phone | | + + + | Preferred Language | Unknown | + + + | Marital Status | Single | + + + | Mandaeism Affiliation | NON | + + + [...] Samantha Ramos | ECON | [address] # | | | | | [place] | | | | | [address] | | + + + + + Care Team Providers + +------+ + | Care Grove Superintendent Name | Role | Phone | + +------+ + | Erich Yates PA-C | PCP | | + +------+ + Reason for Visit + + + | Reason | Comments | + + + | Follow-up visit | | + + + Office Visit - E/M Services (Routine) + +--------+ + + + + | Status | Reason | Specialty | Diagnoses / | Referred By | Referred To | | | | | Procedures | Contact | Contact | + +--------+ + + + + | Authorized | | Surgery | | Non-[facility] | [facility] | | | | | | Epic Dept | [facility] | | | | | | | [address] | | | | | | | [address] | | | | | | | Mailcode: | | | | | | | [facility] | | | | | | [facility] and | | | | | | | Healing, | | | | | | | [address] | | | | | | | [place], [place] | | | | | | | [address] | | | | | | | Phone: | | | | | | | [phone] | | | | | | | Fax: | | | | | | | [phone] | + +--------+ + + + + Encounter Details +--------+ + + + + | Date | Type | Department | Care Team | Description | +--------+ + + + + | 01/24/ | Telephone-S | [facility] | Beth Mondragon, | Follow-up visit | | 2020 | cheduled | [facility] [address] | ANP [address] [facility] | | | | | Zee Nguyen | Gurpreet Bautista | | | | | Mailcode: [place] | [place], [place] | | | | | [facility] and | [address] | | | | | [facility] | [phone] | | | | | [place], [place] | | | | | | [address] | | | | | | [phone] | | | +--------+ + + + [...] documented as of this encounter Progress Notes Beth Mondragon ANP - 01/25/2020 1:30 PM PDTRecent wt 174# (w/ prosthetic?) per ED notes Last 153 w/ prosthetic in 07/2019 PDMP review reveals pt still taking [place] 10 mg tabs, rx #112/28 days 1:33 pm: called [phone] and left VM with clinic phone number. 1:38 pm: called [phone] and left VM w/ phone number. 1:41 pm received message from medical front desk coordinator that patient wished to cancel appointment today 2/ 2 illness. It will be rescheduled at his convenience. IDRIS Camilo Foregut/ [facility] [facility] Division of GI and General Surgery documented in this encounter Plan of Treatment Not on filedocumented as of this encounter Visit Diagnoses + + | Diagnosis | + + | Diabetic gastroparesis associated with type 1 diabetes mellitus (HCC) - Primary | + + documented in this encounter"
--- OUTSIDE RECORDS SUMMARY | ~2020-02-15 | XMS | Encounter Summary ---
Demographics + + + | Address | [address] | | | [place] [address] | + + + | Home Phone | | + + + | Preferred Language | Unknown | + + + | Marital Status | Single | + + + | Mandaen Affiliation | Unknown | + + + [...] [place] | | | | | [address] | | + + + + + Care Team Providers + +------+ + | Care Php Magento Developer Name | Role | Phone | + +------+ + | Erich Yates | PCP | | + +------+ + Encounter Details +--------+ + + + + | Date | Type | Department | Care Team | Description | +--------+ + + + + | 09/13/ | Orders Only | [facility] | Conversion | | | 2017 | | [place]Y [place] | Transaction, | | | | | [address] | Provider Unknown | | | | | [address] [place], [place] | [phone] | | | | | [address] | (Fax) | | | | | [phone] | | | +--------+ + + + [...] 2019 | Office | | [address] [facility] [address] | | | | Visit | | [address] [place], [place] | | | | | | [address] | | | | | | | [...] - 1.030 | EXTERNAL | | | [place], | | | LAB | | | [...] - 1.030 | EXTERNAL | | | [place], | | | LAB | | | [...]
--- OUTSIDE RECORDS SUMMARY | ~2020-02-15 | XMS | Encounter Summary ---
Demographics + + + | Address | [address] | | | [place] [address] | + + + | Home Phone | | + + + | Preferred Language | Unknown | + + + | Marital Status | Single | + + + | Jew Affiliation | Unknown | + + + | Race | Unknown | + + + | Ethnic Group | Unknown | + + + Author + + + | Author | [facility] | | | and [place] | + + + | Organization | [facility] | | [...] [place] | | | | | [address] | | + + + + + Care Team Providers + +------+ + | Care City Clerk Name | Role | Phone | [...] | 03/22/ | Telephone | [facility] | [facility], | Referral | | 2019 | | GASTROENTEROLOGY | DANA Perry [address] | | | | | [address] [place] | [place], [address] | | | | | [address] [place], [place] | [place], [place] | | | | | [address] | [address] | | | | | [phone] | | | +--------+ + + + [...] 2019 | Office | | [address] [facility] | | | | Visit | | [address] [place] | | | | | | [address] | | | | | | | | +--------+ + + + + documented as of this encounter Visit Diagnoses Not on filedocumented in this encounter"
--- OUTSIDE RECORDS SUMMARY | ~2020-02-15 | XMS | Encounter Summary ---
Demographics + + + | Address | [address] | | | [place] [address] | + + + | Home Phone [...] Author + + + | Author | [facility] | + + + | Organization | [facility] | + + + | Address | Unknown | + + + | Phone | Unavailable | + + + Support + + + + + | Name | Relationship | Address | Phone | + + + + + | Samantha Ramos | ECON | [address] # | | | | | [place] | | | | | [address] | | + + + + + Care Team Providers + +------+ + | Care Independent Distributor Name | Role | Phone | + [...] bone and | [address] | [address] [place], | | | | | articular | [place], [place] | [place] | | | | | cartilage | [address] | [address] | | | | | Loose body | Phone: | Phone: | | | | | in upper arm | [phone] | [phone] | | | | | joint | Fax: | Fax: | | | | | Procedures | [phone] | [phone] | | | | | CONSULT TO | | | | | | | [place] LA | | | | | | | EXPLORE | | | | | | | ELBOW JOINT | | | | | | | LA BONE | | | | | | [...] | | | | Mailcode: [id number] | [place], [place] | Uncertain Behavior | | | | [facility] | [address] | of Bone and | | | | [place], [place] | [phone] | Articular Cartilage | | | | [address] | | | | | | [phone] | | | +--------+---------+ + + + [...] Codeine Social history: The patient lives in [place], [place]. The patient smokes half a pack [...]
--- OUTSIDE RECORDS SUMMARY | ~2020-02-15 | XMS | Clinical Summary ---
Demographics + + + | Address | [address] | | | [place] [address] | + + + | Home Phone | | + + + | Preferred Language | Unknown | + + + | Marital Status | Single | + + + | Congregation Affiliation | Unknown | + + + | Race | Unknown | + + + | Ethnic Group | Unknown | + + + Author + + + | Author | [facility] | | | and [place] | + + + | Organization | [facility] | | [...] [address] | | | | | [address] | | + + + + + Care Team Providers + +------+ + | Care Rn Liaison Name | Role | Phone | + [...] e | | 100 units/mL | (before meals) and | | | | | | | injection (pen) | at night 1 unit for | | | | | | | | every 10 carbs | | | | | | + + + +---------+------+------+-------+ | furosemide (LASIX) | Take 40 mg by mouth | | 0 | | | Activ | | 40 mg tablet | 2 times daily. | | | | | e | + + + +---------+------+------+-------+ | metoprolol | Take 75 mg by [...] Activ | | (ZANTAC) 150 mg | Daily. | | | | | e | [...] 1 tablet by | | 0 | 05/3 | | Activ | | HYDROcodone-acetamin | mouth 4 times daily. | | | /20 | | e | | ophen (NORCO) 10-325 | | | | 19 | | | | mg per tablet | | | | | | | + + + +---------+------+------+-------+ | metoclopramide | Take 10 mg by mouth | | 0 | | | Activ | | (REGLAN) 10 mg | 2 [...] 1 pen | 0 | 04/1 | | Activ | | (LANTUS SOLOSTAR) | the skin nightly. 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 | | | | | | with type 1 | | | | | | diabetes mellitus, | | | | | | unspecified part of | | | | | | foot, unspecified | | | | | | ulcer stage (HCC) | +--------+ + + + + | 01/05/ | Intake | | | N/A | | 2020 | | | | | +--------+ + [...] + + + + Plan of Treatment +--------+ + + + + | Date | Type | Specialty | Care Team | Description | +--------+ + + + + | 03/03/ | Virtual | Nephrology | Winston Whitman MD | | | 2020 | Office | | [address] [facility] | | | | Visit | | [address] [place] | | | | | | [address] | | | | | | | | +--------+ + + + + + + + [...] | | 09/20/2018, 07/02/2015, | | | (Season Ended) | 0 | 08/23/2006 | | + + + + + | Vaccine: | | 02/17/2014, 05/09/2006, | | | Dtap/Tdap/Td (8 - | 4 | 05/15/1999, Additional history | | | Td) | | exists | | + + + + + | Vaccine: | Completed | 07/02/2015, 05/25/2014, | | | Pneumococcal 19-64 | | 04/10/2014 | | + + [...] Right: | JOYCE | | 07/14/ | [id number] | | - [id number]: | | | [employer] | | 2020 | / | | Qty: 1 on 09/19/2018 by | | Ureter | - JOYCE | | | /[id number] | | Tc Mora MD at | | | | | | 43 | | [facility] | | | | | | | | [facility] | | | | | | [...] from Last 3 Months Results POC Glucose (01/10/2020 11:36 AM PDT)Only the most recent of 46 results within the time per iod is included. + +-------+ + + + | Component | Value | Ref Range | Performed | Pathologist | | | | | At | Signature | + +-------+ + + + | Glucose, | 100 | 70 - 109 mg/dL | [facility] [...] [address] | [place] | [phone] | | [facility] | | [address] | | | - LABORATORY | | | | + + + + + CBC with Differential (01/10/2020 4:33 AM PDT)Only the most recent of 5 [...] | | Lymphocytes | | K/uL | [facility] | [...] + | [facility] | [address] | [place] | [phone] | | [facility] | | [address] | | | - LABORATORY | | | | + + + + + Magnesium (01/10/2020 4:33 AM PDT)Only the most recent of 10 results within the time pilar stoddard is included. + +-------+ + + + | Component | Value | Ref Range | Performed | Pathologist | | | | | At | Signature | + +-------+ + + + | Magnesium | 1.6 | 1.6 - 2.6 mg/dL | [facility] [...] [address] | [place] | [phone] | | [facility] | | [address] | | | - LABORATORY | | | | + + + + + Basic Metabolic Panel (01/10/2020 4:33 AM PDT)Only the most recent of 7 results within the time period is included. [...] 2.67 (H) | 0.70 - 1.30 | [facility] | | | | | mg/dL | [facility] | | | | | | MEDICAL | | | | | | CENTER - | | | | | | LABORATORY | | + + + + + + | eGFR if not | 28 (L)Comment: | >=60 | [facility] | | | | GLOMERULAR FILTRATION | mL/min/1.73m2 | [facility] | | | [place] | RATE,ESTIMATED | | MEDICAL | | | | mL/min/1.27u2Dqto than | | CENTER - | | [...] + | [facility] | [address] | [place] | [phone] | | [facility] | | [address] | | | - LABORATORY | | [...] | | | | | | [facility] | | | | | | MEDICAL [...] not | 22 (L)Comment: | >=60 | [facility] | | | | GLOMERULAR FILTRATION | mL/min/1.73m2 | [facility] | | | [place]IAN | RATE,ESTIMATED | | MEDICAL | | | | mL/min/1.36h6Iwpx than | | CENTER - | | [...] | | | | mg/dL | [facility] | | | | [...] [address] | [place] | [phone] | | [facility] | | [address] | | | - LABORATORY | | [...] Report | | | | | 2 NAAT | | | | | + + [...] | | | + +---------+ + + Procalcitonin (01/07/2020 4:42 AM PDT)Only the most recent of 2 results within the time mamta schilling is included. + + + + + + | Component | Value | Ref Range | Performed | Pathologist | | | | | At | Signature | + + + + + + | Procalciton | 1.33 (H) | <=0.50 ng/mL | [facility] | | | in | | | [facility] | | [...] [address] | [place] | [phone] | | [facility] | | [address] | | | - LABORATORY | | | | + + + + + Phosphorus (01/07/2020 4:42 AM PDT)Only the most recent of 7 results within the time pilar stoddard is included. + +---------+ + + + | Component | Value | Ref Range | Performed | Pathologist | | | | | At | Signature | + +---------+ + + + | Phosphorus | 6.1 (H) | 2.4 - 5.1 mg/dL | [facility] [...] + | [facility] | [address] | [place] | [phone] | | [facility] | | [address] | | | - LABORATORY | | | | + + + + + Comprehensive Metabolic Panel (01/07/2020 4:42 AM PDT)Only the most recent of 2 [...] not | 19 (L)Comment: | >=60 | [facility] | | | | GLOMERULAR FILTRATION | mL/min/1.73m2 | [facility] | | | [place]IAN | RATE,ESTIMATED | | MEDICAL | | | | mL/min/1.67c1Bobg than | | CENTER - | | [...] [facility] | | | | | | [facility] [...] [address] | [place] | [phone] | | [facility] | | [address] | | | - LABORATORY | | [...] | | s Screen, | | | [facility] | | | Urine | | | MEDICAL | | | | | | CENTER - | | | | | | LABORATORY | | + + + + + + | Cocaine | Negative | Negative | [facility] | | | Screen, | | | [facility] | | | Urine | | | MEDICAL | | | | | | CENTER - | | | | | | LABORATORY | | + + + + + + | Methadone | Negative | Negative | [facility] | | | Screen, | | | [facility] | | | Urine | | | MEDICAL | | | | | | CENTER - | | | | | | LABORATORY | | + + + + + + | Opiates | Positive (A) | Negative | [facility] | | | Screen, | | | [facility] | | | Urine | | [...] + | [facility] | [address] | [place] | [phone] | | [facility] | | [address] | | | - LABORATORY | | [...] | | | report was sent by [employer] with no significant discrepancy on | | [...] preliminary report was | | sent by [employer] with no significant discrepancyon 01/06/2020 4:25 PM.Dictated [...] | |A preliminary report was sent by [employer] with no significant discrepancy | |on 01/06/2020 [...] | | | + +---------+ + + Retic Count (01/06/2020 8:05 AM PDT) + + + + + + | Component | Value | Ref Range | Performed | Pathologist | | | | | At | Signature | + + + + + + | % | 2.1 (H) | 0.5 - 1.5 % | [facility] | | | Reticulocyt | | | [facility] | | [...] [address] | [place] | [phone] | | [facility] | | [address] | | | - LABORATORY | | | | + + + + + Vitamin B-12 01/06/2020 8:04 AM PDT) + + + + + + | Component | Value | Ref Range | Performed | Pathologist | | | | | At | Signature | + + + + + + | VITAMIN | 1,885 (H)Comment: | 156 - 672 pg/mL | [facility] | | | B-12 | DEFICIENT: | [...] + | [facility] | [address] | [place] | [phone] | | [facility] | | [address] | | | - LABORATORY | | [...] | | SATURATION | | | [facility] | | [...] ST. | [address] | [place], [place] | [phone] | | [facility] | | [address] | | | - LABORATORY | | [...] | | Screen | | | [facility] | | [...] St | [place] | | | [facility] | | [address] | | | - BLOOD BANK | | | | + + + + + Folate (01/06/2020 8:04 AM PDT) + +---------+ + + + | Component | Value | Ref Range | Performed | Pathologist | | | | | At | Signature | + +---------+ + + + | FOLATE | 2.0 (L) | >5.4 ng/mL | [facility] | | | | [...] [address] | [place] | [phone] | | [facility] | | [address] | | | - LABORATORY | | | | + + + + + Ferritin (01/06/2020 8:04 AM PDT) + +---------+ + + + | Component | Value | Ref Range | Performed | Pathologist | | | | | At | Signature | + +---------+ + + + | FERRITIN | 480 (H) | 11 - 307 ng/mL | [facility] | | | | | [...] ST. | [address] | [place] | [phone] | | [facility] | | [address] | | | - LABORATORY | | [...] difficile, | Toxigenic C. difficile | | [facility] | | | Interp | detected. Consider [...] + | [facility] | [address] | [place] | [phone] | | [facility] | | [address] | | | - LABORATORY | | [...] [address] | [place] | [phone] | | [facility] | | [address] | | | - LABORATORY | | [...] - 1.030 | [facility] | | | [place], | | | [facility] | | [...] | | Cells, | | | [facility] | | | Urine | | | MEDICAL | | | | | | CENTER - | | | | | | LABORATORY | | + + + + + + | Red Blood | 15-25 (A) | 0 - 2 [...] + + + + | Bacteria, | 2+ (A) | Negative /HPF | [facility] | | | Urine | | | [facility] | | | | | | MEDICAL | | | | | | CENTER - | | | | | | LABORATORY | | + + + + + + | Mucus, | Present (A) | Negative /LPF | [facility] | | | Urine | | | [facility] | | | | | | MEDICAL | | | | | | CENTER - | | | | | | LABORATORY | | + + + + + + | Hyaline | 25-50 (A) | 0 - 2 /LPF | [facility] | | | Casts, | | | [facility] | | | Urine | | | MEDICAL | | | | | | CENTER - | | | | | | LABORATORY | | + + + + + + | Urine | Urine Culture Set Up | | [facility] | | | Comment | | | [facility] | | [...] [address] | [place] | [phone] | | [facility] | | [address] | | | - LABORATORY | | [...] + + | Performed at: 01 - [facility] [address], | REFERENCE LAB | | [place], [place] [id number] Commercial Drafter: Jerome Agudelo MD, Phone: | [facility] | | [phone] | | + + + + + + + + | Performing | Address | City/State/Zipcode | Phone Number | | Organization | | | | + + + + + | REFERENCE LAB | [address] | [place], [place] | [phone] | | [facility] | [place] | [address] | | + + + + + [...] [address] | [place] | [phone] | | [facility] | | [address] | | | - LABORATORY | | [...] | | Urine, | | | [facility] | | | Random | | [...] + | [facility] | [address] | [place], [place] | [phone] | | [facility] | | [address] | | | - LABORATORY | | [...] | | , Qual | | | [facility] | | | | | | MEDICAL [...] + | [facility] | [address] | [place] | [phone] | | [facility] | | [address] | | | - LABORATORY | | [...] + | [facility] | [address] | [place] | [phone] | | [facility] | | [address] | | | - LABORATORY | | | | + + + + + Culture, Blood (01/06/2020 3:39 AM PDT)Only the most recent of 2 [...] | | | incubation. | | [facility] | | | [...] [address] | [place] | [phone] | | [facility] | | [address] | | | - LABORATORY | | [...] | | | | CRISTINE HUDDLESTON MD ([id number]) | | | | | | on [...] + +---------+ + + Beta Hydroxybutyrate, Quant (01/06/2020 3:28 AM PDT) + + + + + + | Component | Value | Ref Range | Performed | Pathologist | | | | | At | Signature | + + + + + + | Beta | 9.81 (H) | 0.02 - 0.27 | [facility] | | | Hydroxybuty | | mmol/L | [facility] | | | rate | | [...] [address] | [place] | [phone] | | [facility] | | [address] | | | - LABORATORY | | [...] | | | | | | [employer] | | | | | [...] [address] | [place] | [phone] | | [facility] | | [address] | | | - LABORATORY | | [...] + | [facility] | [address] | [place] | [phone] | | [facility] | | [address] | | | - LABORATORY | | [...] ST. | [address] | [place] | [phone] | | [facility] | | [address] | | | - LABORATORY | | [...] | | globin, | | | [facility] | | [...] | | TEMP | | | [facility] | | [...] + | [facility] | [address] | [place] | [phone] | | [facility] | | [address] | | | - LABORATORY | | [...] unspecified provider. | | + + + XR Chest 1 Vw [...] | [employer] | MODA | [id number] | | [phone] | | Medica | | MEDICAID HMO | HEALTH | | 018-Pr | 1 | | id | | | MDCD | | esent | | | | | | [place] | | | | | | + +--------+ +--------+ +---------+--------+ | [employer] | [employer] | [id number] | | [phone] | | Medica | | MEDICAID HMO [...] | | al/Fam | | 1990 | [phone] | [address] [place] | | | [place] | | | 1 (Home) | [address] | + +--------+ +--------+ + + | Brooks Marquez | Person | Self | [birth year] | [address] | | | al/Fam | | 1990 | [phone] | [address] [place], [place] | | | [place] | | | 1 (Home) | [address] | + +--------+ +--------+ + + Advance Directives + + + + + | Type | Date Recorded | Patient | Explanation | | | | Ear Muff Assembler | | + + + + + | Power of | | | | | Plugging Machine Operator | | | | + + + + + | Advance | 09/20/2018 | | | | Directive | 10:13 AM | | | + + + + + + + + + + | Code Status | Date | Date | Comments | | | Activated | Inactivated | | + + + + + | Full Code | 01/08/2020 | 01/10/2020 | | | | 8:16 AM | 3:26 PM | | + + + + [...]
--- OUTSIDE RECORDS SUMMARY | ~2020-02-15 | XMS | Encounter Summary ---
Demographics + + + | Address | [address] | | | [place] [address] | + + + | Home Phone | | + + + | Preferred Language | Unknown | + + + | Marital Status | Single | + + + | Cheondoism Affiliation | NON | + + + [...] | Samantha Ramos | ECON | [address] # | | | | | [place] | | | | | [address] | | + + + + + Care Team Providers + +------+ + | Care Stem Lead Former Name | Role | Phone | + +------+ + | Neri Mojica MD | PCP | | + +------+ + Encounter Details +--------+ + + + + | Date | Type | Department | Care Team | Description | +--------+ + + + + | 04/26/ | Results | Orthopaedics at | [place], | | | 2005 | Only | [facility] [address] | MANUFACTURING QUALITY TECHNICIAN [address] | | | | | [address] | [address] | | | | | Mailcode: [id number] | [place] [address] | | | | | [facility] | [phone] | | | | | [place], [place] | | | | | | [address] | | | | | | [phone] | | | +--------+ + + + [...]
--- OUTSIDE RECORDS SUMMARY | ~2020-02-15 | XMS | Encounter Summary ---
Demographics + + + | Address | [address] | | | [place] [address] | + + + | Home Phone [...] [place] | | | | | [address] | | + + + + + Care Team Providers + +------+ + | Care Playground Worker Name | Role | Phone | + +------+ + | Erich Yates | PCP | | + +------+ + Encounter Details +--------+ + + + + | Date | Type | Department | Care Team | Description | +--------+ + + + + | 06/20/ | Orders Only | [facility] | Winston Whitman MD | CKD (chronic kidney | | 2019 | | NEPHROLOGY [place] | [address] [place] | disease), stage III | | | | [address] [place] | [address] [place], [place] | ([facility]) (Primary Dx) | | | | [address] [facility] [place] | [address] | | | | | [address] | | | | | | [phone] | | | +--------+ + + + [...] 2020 | Office | | [address] [facility] | | | | Visit | | [address] [place], [place] | | | | | | [address] | | | | | | | [...]
--- OUTSIDE RECORDS SUMMARY | ~2020-02-15 | XMS | Encounter Summary ---
Demographics + + + | Address | [address] | | | [place] [address] | + + + | Home Phone [...] + | Author | [facility] | + + + | Organization | [facility] | + + + | Address | Unknown | + + + | Phone | Unavailable | + + + Support + + + + + | Name | Relationship | Address | Phone | + + + + + | Samantha Ramos | ECON | [address] # | | | | | [place] | | | | | [address] | | + + + + + Care Team Providers + +------+ + | Care Cabinetmaker Apprentice Name | Role | Phone | + +------+ + | Ercih Yates PA-C | PCP | | + [...] [address] | | | | | [place], [place] | [place], [place] | | | | | [address] | [address] | | | | | [phone] | [phone] | | | | | | | [...] | [facility]/ | | | | | [facility] | | | | | | [place]. | | | | + + + + + + + + | Specimen | + + | | + + + + + + + | Performing | Address | City/State/Zipcode | Phone Number | | Organization | | | | + + + + + | [facility] | [address] | [place] [address] | | | LABORATORY | | | [...] [place] | | | | | | [facility]. | | | | + + + + + + + + | Specimen | + + | | + + + + + + + | Performing | Address | City/State/Zipcode | Phone Number | | Organization | | | | + + + + + | [facility] | [address] | [place] [address] | | | LABORATORY | | | | + + + + + documented in this encounter Visit Diagnoses Not on filedocumented in this encounter"
--- OUTSIDE RECORDS SUMMARY | ~2020-02-15 | XMS | Encounter Summary ---
Demographics + + + | Address | [address] | | | [place] [address] | + + + | Home Phone [...] Samantha Ramos | ECON | [address] # | | | | | [place] | | | | | [address] | | + + + + + Care Team Providers + +------+ + | Care Salon Assistant Name | Role | Phone | [...] 2005 | Only | [address] | [phone] | | | | | Rd Mailcode: [id number] | | | | | | [place], [place] | | | | | | [address] | | | | | | [phone] | | | +--------+ + + + [...]
--- OUTSIDE RECORDS SUMMARY | ~2020-02-15 | XMS | Encounter Summary ---
Demographics + + + | Address | [address] | | | [place] [address] | + + + | Home Phone [...] Samantha Ramos | ECON | [address] # | | | | | [place] | | | | | [address] | | + + + + + Care Team Providers + +------+ + | Care Fermenter Operator Name | Role | Phone | [...] | | | | | diabetes | [place], [place] | floor | | | | | mellitus | [address] | [place], [place] | | | | | (HCC) | Phone: | [address] | | | | | Procedures | [phone] | Phone: | | | | | CONSULT TO | Fax: | [phone] | | | | | ENDOSCOPY | [phone] | Fax: | | | | | UNIT: EGD | | [phone] | + +--------+ + + + + [...] | | 2020 | | Center at [facility] [address] | [address] [facility] | | | | | Zee Nguyen | [address] [place], | | | | | Mailcode: [place] | [place] [address] | | | | | for Health and | [phone] | | | | | [facility] [address] | | | | | | [place], [place] | | | | | | [address] | | | | | | [phone] | | | +--------+ + + + [...]
--- OUTSIDE RECORDS SUMMARY | ~2020-02-15 | XMS | Encounter Summary ---
Demographics + + + | Address | [address] | | | [place] [address] | + + + | Home Phone [...] | Samantha Ramos | ECON | [address] | | | | | [place] | | | | | [address] | | + + + + + Care Team Providers + +------+ + | Care Bell Spinner Name | Role | Phone | + [...] | Procedural Unit at | [facility] [address] | | | | | [address] | [facility] | | | | | [address] | [place], [place] | | | | | [place], | [address] | | | | | 4th floor [place], | [phone] | | | | | [place] [address] | | | | | | [phone] | | | +--------+ + + + [...]
--- OUTSIDE RECORDS SUMMARY | ~2020-02-15 | XMS | Encounter Summary ---
Demographics + + + | Address | [address] | | | [place] [address] | + + + | Home Phone [...] Samantha Ramos | ECON | [address] | | | | | [place] | | | | | [address] | | + + + + + Care Team Providers + +------+ + | Care Flour Worker Name | Role | Phone | + +------+ + | Erich Yates PA-C | PCP | | + +------+ + Encounter Details +--------+ + + + + | Date | Type | Department | Care Team | Description | +--------+ + + + + | 07/06/ | Transcribe | [facility] at [facility] | Transcribe | | | 2019 | Orders | [address] | Encounter, Provider, | | | | | Elliott Nguyen Mailcode: | [address] | | | | | [address] Center for | [place] [address] | | | | | Health and Healing, | | | | | | Building [address] | | | | | | [place], [place] | | | | | | [address] | | | | | | [phone] | | | +--------+ + + + [...]
--- OUTSIDE RECORDS SUMMARY | ~2020-02-15 | XMS | Clinical Summary ---
Demographics + + + | Address | [address] | | | [place] [address] | + + + | Home Phone [...] Samantha Ramos | ECON | [address] | | | | | [place], [place] | | | | | [address] | | + + + + + Care Team Providers + +------+ + | Care Extrusion Former Name | Role | Phone | + +------+ + | Erich Yates PA-C | PCP | | + +------+ + Source Comments VERITO is fully live on both [facility] and [facility] InPatient.[facility] Allergies + + + + [...] | Follow-up visit | | 2019 | chejenniferled | | ANP | | +--------+ + [...] | | Other, Faculty | | | 2019 | Records | | | | +--------+ + + + + | 12/06/ | Documentati | Gastroenterology | Keshav, | | | 2019 | on | | MD Jerome | | +--------+ + + + + | 11/28/ | Anesthesia | Gastroenterology | Beth Nash, | | | 2019 | Event | | RN | | +--------+ + + + + | 11/28/ | Telephone-S | Pre-operative | | Pre-op evaluation | | 2019 | chejenniferled | Medicine | | | +--------+ + + + + | 11/28/ | Telephone | Surgery | Neri Steven MD | Other | | 2020 | | | | [...] | | | + +--------+ +--------+-------+---------+--------+ | PULP TESTER MEDICAID | PULP TESTER | xxxxxxxx | 04/03/20 | | | [...] [address] | | Alin | andreea/Filipe | | 1991 | [phone] | [place] | | | lucian | | | 1 (Home) | [address] | + +--------+ +--------+ + + Advance [...]
--- OUTSIDE RECORDS SUMMARY | ~2020-02-15 | XMS | Encounter Summary ---
Demographics + + + | Address | [address] | | | [place] [address] | + + + | Home Phone | | + + + | Preferred Language | Unknown | + + + | Marital Status | Single | + + + | Yazidism Affiliation | Unknown | + + + | Race | Unknown | + + + | Ethnic Group | Unknown | + + + Author + + + | Author | [facility] | | | and [place] | + + + | Organization | [facility] | | [...] [place] | | | | | [address] | | + + + + + Care Team Providers + +------+ + | Care Service Writer Advisor Name | Role | Phone | [...] + + | 06/09/ | Hospital | [facility] | Diony Hollis, | | | 2019 - | Encounter | [facility]UTE | [address] | | | | | CARE FLO[address] | [place] [address] | | | 06/10/ | | [address] | [phone] | | | 2019 | | [place], [place] | | | | | | [address] | Solomon Jonas MD [address] | | | | | [phone] | [address] | | | | | | [place] [address] | | | | | | [phone] | | | | | | | | | | | | Jannette Spears MD | | | | | | [address] | | | | | | [place] [address] | | | | | | [phone] | | | | | | | | | | | | Andrey Gatica DO | | | | | | [address] | | | | | | [place] [address] | | | | | | [phone] | | | | | | | [...] note might be different from rolando hercules. [facility] MEDICAL HOSPITALIST TEAM Patient leave AGAINST MEDICAL ADVICE documentation Pt. Name/Age/: Brooks Marquez 28 y.o. 1990 Date of Admission: 06/09/2019 Date of leaving hospital AGAINST MEDICAL ADVICE: 2018 PCP: Erich Yates Note press writer provider: Solomon Jonas MD HPI/Reason for Admission:-Chest pain with elevated troponin Hospital course, including complications: 28 years old gentleman with type 1 diabetes with renal complication and gastroparesis hyper tension chronic kidney disease stage III, chronic pain on narcotics status post right BKA fo r necrotizing fasciitis October 2018 transferred to [facility] from [facility] for anup st pain and elevated troponin Associated symptoms are diarrhea ongoing for which he stated as a chronic at 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 EGD with history of gastric ulcers He also have gastropathy which was documented in [facility] by gastric emptying study in 2004 by [...] insulin IV morphine and tra nsferred to [facility] due to elevated troponin EKG shows sinus tachycardia no acute ischemic brown e repeat troponin at [facility] was unremarkable by record Patient was admitted [...] a scheduled gastroenterology appointment in June at [facility] for p ossible gastric pacemaker acute on [...] both patient and mother requesting to leave [facility] MED[facility]VICE before I have a [...] - 06/10/2019 4:55 AM PDTPt transferred [facility]. Admitted by Dr. Ramakrishna Spears. Ewa grier called at approximated [phone] as patient was getting very agitated and [...] time. Hourly rounding will cont inue. Felipa Hill, RN documented i n this encounter Plan of Treatment +--------+ + + + + | Date | Type | Specialty | Care Team | Description | +--------+ + + + + | 03/03/ | Virtual | Nephrology | Winston Whitman MD | | | 2019 | Office | | [address] [facility] | | | | Visit | | [address] [place], [place] | | | | | | [address] | | | | | | | [...] | | | POC | performed at [facility];[address] | | LABORATORY | | | | [address];[place], [place] | | | | | | [address] | | | | + + + + + + + + | Specimen | + + | | + + + + + + + | Performing | Address | City/State/Zipcode | Phone Number | | Organization | | | | + + + + + | [facility] | [address] | [place] [address] | [phone] | + + + + + Troponin I (06/10/2019 5:58 AM PDT) + + + + + + | Component | Value | Ref Range | Performed | Pathologist | | | | | At | Signature | + + + + + + | Troponin I | <0.006Comment: 0.04 | 0.00 - 0.04 | [facility] | | | | ng/mL [...] at | | | | | | [facility];[address] | | | | | | [facility];[place] [address] | | | | + + + + + + + + | Specimen | + + | | + + + + + + + | Performing | Address | City/State/Zipcode | Phone Number | | Organization | | | | + + + + + | [facility] | [address] | [place] [address] | [phone] | + + + + + Hemoglobin A1C (06/10/2019 5:58 AM PDT) + + + + + + | Component | Value | Ref Range | Performed | Pathologist | | | | | At | Signature | + + + + + + | Hemoglobin | 8.8 (H)Comment: HbA1c | 4.0 - 6.0 % | [facility] | | | A1c | [...] | 206 (H)Comment: | <154 mg/dL | [facility] | | | Average | Estimated Average | | LABORATORY | | | Glucose | Glucose calculated from | | | | | | hemoglobin A1c by use of | | | | | | the ADArecommended | | | | | | formula.Testing | | | | | | performed at [facility], [address] | | | | | | [facility], | | | | | | [place] [address] | | | | + + + + + + + + | Specimen | + + | Blood | + + + + + + + | Performing | Address | City/State/Zipcode | Phone Number | | Organization | | | | + + + + + | [facility] | [address] | [place] [address] | [phone] | + + + + + TSH (06/10/2019 5:58 AM PDT) + + + + + + | Component | Value | Ref Range | Performed | Pathologist | | | | | At | Signature | + + + + + + | TSH | 0.811Comment: Testing | 0.450 - 5.100 | [facility] | | | | performed at [facility];[address] | uIU/mL | LABORATORY | | | | [address];[place] | | | | | | [address] | | | | + + + + + + + + | Specimen | + + | Blood | + + + + + + + | Performing | Address | City/State/Zipcode | Phone Number | | Organization | | | | + + + + + | [facility] | [address] | [place] [address] | [phone] | + + + + + Basic [...] | | | | | performed at [facility];[address] | | | | | | [address];[place] | | | | | | [address] | | | | + + + + + + + + | Specimen | + + | Blood | + + + + + + + | Performing | Address | City/State/Zipcode | Phone Number | | Organization | | | | + + + + + | [facility] | [address] | [place] [address] | [phone] | + + + + + CBC [...] [facility] | | | | performed at [facility];[address] | | LABORATORY | | | | [address];[place], [place] | | | | | | [address] | | | | + + + + + + + + | Specimen | + + | Blood | + + + + + + + | Performing | Address | City/State/Zipcode | Phone Number | | Organization | | | | + + + + + | [facility] | [address] | [place] [address] | [phone] | + + + + + ECG [...] Testing | 65 - 99 mg/dL | [facility] | | | POC | performed at [facility];[address] | | LABORATORY | | | | [address];[place], [place] | | | | | | [address] | | | | + + + + + + + + | Specimen | + + | | + + + + + + + | Performing | Address | City/State/Zipcode | Phone Number | | Organization | | | | + + + + + | [facility] | [address] | [place] [address] | [phone] | + + + + + Troponin I (06/09/2019 11:38 PM PDT) + + + + + + | Component | Value | Ref Range | Performed | Pathologist | | | | | At | Signature | + + + + + + | Troponin I | <0.006Comment: 0.04 | 0.00 - 0.04 | [facility] | | | | ng/mL [...] at | | | | | | [facility];[address] [facility] | | | | | | Blvd;[place] [address] | | | | + + + + + + + + | Specimen | + + | Blood | + + + + + + + | Performing | Address | City/State/Zipcode | Phone Number | | Organization | | | | + + + + + | [facility] | [address] | [place] [address] | [phone] | + + + + + Lipid [...] | 82Comment: Testing | <100 mg/dL | [facility] | | | Calculated | performed at [facility], [address] | | LABORATORY | | | | [address], | | | | | | [place] [address] | | | | + + + + + + + + | Specimen | + + | Blood | + + + + + + + | Performing | Address | City/State/Zipcode | Phone Number | | Organization | | | | + + + + + | [facility] | [address] | [place] [address] | [phone] | + + + + + Troponin I (06/09/2019 9:05 PM PDT) + + + + + + | Component | Value | Ref Range | Performed | Pathologist | | | | | At | Signature | + + + + + + | Troponin I | 0.006Comment: 0.04 | 0.00 - 0.04 | [facility] | | | | ng/mL or less [...] at | | | | | | [facility];[address] | | | | | | [address];[place] [address] | | | | + + + + + + + + | Specimen | + + | Blood | + + + + + + + | Performing | Address | City/State/Zipcode | Phone Number | | Organization | | | | + + + + + | [facility] | [address] | [place] [address] | [phone] | + + + + + POC [...] | | | POC | performed at [facility];[address] | | LABORATORY | | | | [address];[place] | | | | | | [address] | | | | + + + + + + + + | Specimen | + + | | + + + + + + + | Performing | Address | City/State/Zipcode | Phone Number | | Organization | | | | + + + + + | [facility] | [address] | [place] [address] | [phone] | + + + + + documented [...] | | | | | | Starting 9/15/19 at 0845, For | | | | [...]
--- OUTSIDE RECORDS SUMMARY | ~2020-02-15 | XMS | Encounter Summary ---
Demographics + + + | Address | [address] | | | [place] [address] | + + + | Home Phone [...] + + + | Author | [facility] | + + + | Organization | [facility] | + + + | Address | Unknown | + + + | Phone | Unavailable | + + + Support + + + + + | Name | Relationship | Address | Phone | + + + + + | Samantha Ramos | ECON | [address] # | | | | | [place] | | | | | [address] | | + + + + + Care Team Providers + +------+ + | Care Interactive Web Developer Name | Role | Phone | + +------+ + PCP | Unavailable | + +------+ + Encounter Details +--------+ + + + + | Date | Type | Department | Care Team | Description | +--------+ + + + + | 08/27/ | Office | [facility] | Clinic, Pediatric | Progress Note | | 2005 | Visit-Trans | FISHERIES MANAGEMENT BIOLOGIST | Endocrinology | | | | cribed [...] as of this encounter Progress Notes Interface, Behavior Management Specialist In - 10/18/2005 10:01 PM PST [id number] MARQUE[facility] R[facility]D [facility] Date: 08/27/2005 [...] the school week, his father lives in [place], and apparently the school is better and [...] was 56. Diet: Brooks is on a cmtmaxdezpyo-dd-ukshfhs ratio. He has had dietary education about [...] sites. Assessment: Brooks is a 14-year and 08-nniyh-uay boy with type 1 diabetes, who has poor control although it is somewhat improved from previously. He is relatively noncompliant with his diabetes. I have made the following recommendations: 1. I have asked the family to review carbohydrate counting with our air brush operator today. 2. I have recommended to [...] in 4 months' time. Ashanti Roque M.D. Chief Airport Guide Pediatric Endocrinology / [id number] / [id number] / [id number] / 81510 cc: Neri Mojica [address] [facility] [place] [address]. Electronically signed by Ashanti Roque 09-10-2005 04:52:54 PM documented i n this encounter Plan of Treatment Not on filedocumented as of this encounter Visit Diagnoses Not on filedocumented in this encounter"
--- OUTSIDE RECORDS SUMMARY | ~2020-02-15 | XMS | Encounter Summary ---
Demographics + + + | Address | [address] | | | [place] [address] | + + + | Home Phone [...] Samantha Ramos | ECON | [address] # | | | | | [place] | | | | | [address] | | + + + + + Care Team Providers + +------+ + | Care Cloud Software Engineer Name | Role | Phone | + +------+ + | Erich Yates PA-C | PCP | | + +------+ + Encounter Details +--------+ + + + + | Date | Type | Department | Care Team | Description | +--------+ + + + + | 07/06/ | Transcribe | [facility] | Transcribe | | | 2019 | Orders | [address] | Encounter, Provider, | | | | | Elliott Nguyen Mailcode: | [address] | | | | | [address] Center for | [place] [address] | | | | | Health and Healing, | | | | | | [address] | | | | | | [place], [place] | | | | | | [address] | | | | | | [phone] | | | +--------+ + + + [...]
--- OUTSIDE RECORDS SUMMARY | ~2020-02-15 | XMS | Encounter Summary ---
Demographics + + + | Address | [address] | | | [place] [address] | + + + | Home Phone [...] [place] | | | | | [address] | | + + + + + Care Team Providers + +------+ + | Care Fox Farmer Name | Role | Phone | + [...] + + | 07/03/ | Telephone | [facility], | Care Plan | | 2019 | | GASTROENTEROLOGY | DANA [address] | | | | | [address] | [place], [address] | | | | | [address] [place], [place] | [place], [place] | | | | | [address] | [address] | | | | | [phone] | | | +--------+ + + + [...] 2019 | Office | | [address] [facility] | | | | Visit | | [address] [place] | | | | | | [address] | | | | | | | | +--------+ + + + + documented as of this encounter Visit Diagnoses Not on filedocumented in this encounter"
--- OUTSIDE RECORDS SUMMARY | ~2020-02-15 | XMS | Encounter Summary ---
Demographics + + + | Address | [address] | | | [place] [address] | + + + | Home Phone | | + + + | Preferred Language | Unknown | + + + | Marital Status | Single | + + + | Gnosticist Affiliation | NON | + + + | Race | White | + + + | Ethnic Group | Not or | + + + Author + + + | Author | [facility] | + + + | Organization | [facility] | + + + | Address | Unknown | + + + | Phone | Unavailable | + + + Support + + + + + | Name | Relationship | Address | Phone | + + + + + | Samantha Ramos | ECON | [address] # | | | | | [place] | | | | | [address] | | + + + + + Care Team Providers + +------+ + | Care Float Tender Name | Role | Phone | [...] Mailcode: | | | | | | [place], [place] | [address] | | | | | manifestatio | [address] | for Health | | | | | n ([facility]) | Phone: | and Healing, | | | | | Procedures | [phone] | Building [address], | | | | | CONSULT TO | Fax: | 11th Floor | | | | | OPHTHALMOLOG | [phone] | [place], [place] | | | | | Y | | [address] | | | | | | | Phone: | | | | | | | [phone] | | | | | | | Fax: | | | | | | | [phone] | +--------+--------+ + + + + Reason [...] | | | with type 1 | [address] | [address] | | | | | diabetes | Phone: | [place], [place] | | | | | mellitus | [phone] | [address] | | | | | (HCC) Type | Fax: | Phone: | | | | | 1 diabetes | [phone] | [phone] | | | | | mellitus | | Fax: | | | | | with | | [phone] | | | | | hyperglycemi | [...] | | | [address] | [place], [place] | ([facility]) (Primary Dx); | | | | [address] | [address] | Hyperglycemia due to | | | | [facility] | [phone] | type 1 diabetes | | | | [address] [place], | | mellitus (HCC); Leg | | | | [place] [address] | | wound, right, | | | | [phone] | | initial encounter | +--------+---------+ + [...] might be different f rom the original. [facility] New Patient Consultation Referring physician: Jaison Pascual DO Primary care provider: Jaison Pascual DO Reason for Consultation: Type 1 diabetes History of Present Illness: This is a new patient to my clinic. Brooks Marquez II is a 24 y.o. male referred for evaluation of type 1 diabetes. Diagnosed in 2001. Seen in childhood in [facility] pediatric endocr inology. Long-standing suboptimal control. Diabetes complicated by gastroparesis and has bee n seen in the ER frequently. Multiple past episodes of DKA, most recently earlier this month at [facility]. Frequent nausea. Doing well since discharge and no current issues with vomiting. N o numbness/tingling. Did not have insurance for a period of time and was paying out of [employer] for his insulin approx 1 year ago [...] tobacco use: 1/2 ppd. 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 Allergies: Allergies Allergen Reactions Codeine Nausea and [...] random - Final result (09/02/2015 8:48 AM [facility]) Component Value Range Microalb, Ur 1337.2 (H) [...] Hyperglycemia due to type 1 diabetes mellitus ([facility]) S81.801A Leg wound, right, initial encounter A1C [...] [facility] parts cataloger. Discussed conservative measures for wound and signs/symptoms [...] | + + + + + | [facility] | [address] | [place] [address] | | | SERVICES, CORE | ZENA [...]
--- OUTSIDE RECORDS SUMMARY | ~2020-02-15 | XMS | Encounter Summary ---
Demographics + + + | Address | [address] | | | [place] [address] | + + + | Home Phone [...] [place] | | | | | [address] | | + + + + + Care Team Providers + +------+ + | Care Vehicle Damage Appraiser Name | Role | Phone | + +------+ + | Erich Yates | PCP | | + +------+ + Encounter Details +--------+ + + + + | Date | Type | Department | Care Team | Description | +--------+ + + + + | 09/21/ | Imaging | [facility] | Provider, | | | 2018 | Exam | [facility] | [address] | | | | | IMAGING [address] | [address] | | | | | [address] [place] | [place] [address] | | | | | [place] [address] | | | | | | [phone] | | | +--------+ + + + [...] 2019 | Office | | [address] | | | | Visit | | [address] [place], [place] | | | | | | [address] | | | | | | | | +--------+ + + + + documented as of this encounter Procedures + +--------+ + + + | Procedure Name | Priori | Date/Time | Associated Diagnosis | Comments | | | ty | | | | + +--------+ + + + | US RENAL LIMITED | Routin | 09/19/2018 | | Results for this | | | e | 2:30 PM | | procedure are in the | | | | PST | | results section. | + +--------+ + + + documented in this encounter Results US Renal Limited (09/19/2018 2:30 PM PST) + + | Specimen | [...]
--- OUTSIDE RECORDS SUMMARY | ~2020-02-15 | XMS | Encounter Summary ---
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 Name | Role | Phone | [...] | Services | Diabetic | Willard | [place] | | | Required | | ulcer of | MD Bernadette | [address] | | | | | left foot | [address] | [place] | | | | | associated | [place] | [place], [place] | | | | | with type 1 | [place] | [address] | | | | | diabetes | [address] | Phone: | | | | | mellitus, | Phone: | [phone] | | | | | unspecified | [phone] | Fax: | | | | | part of | Fax: | [phone] | | | | | foot, | [phone] | | | | | | unspecified | | | | | | | ulcer stage | | | | | | | ([facility]) | | | | | | | [...] + + | 01/05/ | Hospital | [facility] | Erika Allison MD | Generalized weakness | | 2019 - | Encounter | [facility] | [address] | (Primary Dx); | | | | [address] [place] | [place] | Diabetic | | 01/09/ | | [place] [address] | [address] | ketoacidosis without | | 2019 | | [phone] | | coma associated | | | | | Willard Aldrich | with type 1 diabetes | | | | | MD Bernadette [address] | mellitus (HCC); | | | | | [address] [place] | Acute renal failure | | | | | [place] [address] | superimposed on | | | | | [phone] | stage 3 chronic | | | | | | kidney disease, | | | | | | unspecified acute | | | | | | renal failure type | | | | | | ([facility]); Diabetic | | | | | | gastroparesis ([facility]); | | | | | | 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 | | | | | | with type 1 | | | | | | diabetes mellitus, | | | | | | unspecified part of | | | | | | foot, unspecified | | | | | | ulcer stage ([facility]) | +--------+ + + + + Social [...] might be differen t from the original. [place] HOSPITALIST DISCHARGE SUMMARY Pt. Name/Age/: Brooks [...] III, p/w Diarrhe a and AMS from [facility], found to have DKA and Acute [...] Medicine Why: hospital follow up Contact information: [address] [place] [id number] Discharge to home with family Home health ordered on discharge for PT, wound care, and medication management Condition: Patient being discharged with condition improved Diet: consistent carb diet Greater than 30 minutes were spent on discharge and coordination of post-hospital care. Electronically signed by: Willard Aldrich MD, 01/10/2020 10:55 AM [facility] Reference. This is NOT part of the [...] this chart may have been created with sageCrowd voice recognition software. Occasi onal wrong-word or [...] sick with another illness Date Last Reviewed: 03/26/201619992228-8164 [employer]. [address] [place] [address], [place] [address]. All righ ts reserved. This information is [...] flavors available): 8 ounces per day ? [place] Fresh Yogurt (many flavors available): 6 ounces per day AttachmentsThe following attachments cannot be sent through Care Everywhere.Adult, Pneumoni a (Welsh)documented in this encounter Medications at Time of [...] might be differen t from the original. [facility] ID HOSPITALIST PROGRESS NOTE Patient: Brooks Marquez : 1990: Age: 29 y.o. MedRec: [id number] PCP: Emmanuel Saavedra Admission date: 01/06/2020 Hospital [...] III, p/w Diarrhe a and AMS from [facility], found to have DKA and Acute [...] abx Willard Aldrich MD 01/09/2020 10:22 AM [facility] Subjective CC Continued nausea without vomiting, has [...] capsule 1 capsule 1 capsule Oral BID WC Maddie Altamirano, PharmD 1 capsule at 01/09/20 [...] 84 TIBC 153* PCTSAT 55.0 FERRITIN 480* [id number] 1,885* FOLATE 2.0* Inflammatory markers Recent Labs Lab 01/07/20 0442 01/06/20 0328 LACTATE -- 0.9 PROCALCITONI 1.33* [...] ABG No results for input(s): PHART, PO2ART, PXE6SIF, WLQ0IEJ, BEART, A6URGLIF in the last 168 h ours. Recent [...] Date/Time [facility] STAT instructions for COVID-19 tracking [[id number]] Collected: 01/07/201451 Order Status: Canceled Lab Status: No result Updated: 01/07/201451 Specimen: Tissue from Nasopharynx Coronavirus (COVID-19) NAAT [[id number]] (Normal) Collected: 01/07/20 144 Order Status: Completed Lab Status: Final result Updated: 01/07/201902 Specimen: Tissue from Nasopharynx SARS coronavirus 2 RNA Not Detected Comment: See Scanned Report [facility] STAT instructions for COVID-19 tracking [[id number]] Collected: 01/07/201446 Order Status: Completed Lab Status: Final result Updated: 01/07/201902 Specimen: Tissue from Nasopharynx [facility] COVID STAT instruction done Stool Pathogens, NAAT [[id number]] (Normal) Collected: 01/06/20428 Order Status: Completed Lab Status: Final result Updated: 01/06/20 0816 Specimen: Stool Campylobacter, NAAT Not Detected Salmonella, NAAT Not Detected Shigella NAAT Not Detected Vibrio, NAAT Not Detected Yersinia enterocolitica, NAAT Not Detected Shigatoxin 1 Not Detected Shigatoxin 2 Not Detected Clostridioides difficle NAAT reflex to Tox Ag [[id number]] Collected: 01/06/20428 Order Status: Completed Lab Status: Final result Updated: 01/06/20704 Specimen: Stool Narrative: The following orders were created for panel order Clostridioides difficle NAAT reflex to T ox Ag. Procedure Abnormality Status --------- ------ Clostridioides difficile...[[id number]] Final result Please view results for these tests on the individual orders. Clostridioides difficile NAAT Reflex [[id number]] Collected: 01/06/20428 Order Status: Completed Lab Status: Final result Updated: 01/06/20 07 Specimen: Stool C. difficile, Interp Negative Comment: No Toxigenic C. difficile detected. Consider other causes of Diarrhea. Repeat te sting should not be performed within 7 days. C. difficile, NAAT Negative Fecal leukocytes [[id number]] (Normal) Collected: 01/06/20427 Order Status: Completed Lab Status: Final result Updated: 01/06/20 0504 Specimen: Stool Lactoferrin, Qual Negative Culture, Urine [[id number]] (Normal) Collected: 01/06/20 0428 Order Status: Completed Lab Status: Final result Updated: 01/08/20 1209 Specimen: Urine, Unspecified Source Culture No Growth Culture, Blood [[id number]] Collected: 01/06/20 0339 Order Status: Completed Lab Status: Preliminary result Updated: 01/09/20 0441 Specimen: Peripheral Blood Culture No growth: Monitored continually by instrument for 5 days Culture, Blood [[id number]] Collected: 01/06/20 0329 Order Status: Completed Lab Status: Preliminary result Updated: 01/09/20 044 Specimen: Peripheral Blood Culture No growth: Monitored continually by instrument for 5 days Culture, MRSA [[id number]] (Normal) Collected: 01/06/20 0255 Order Status: Completed Lab Status: Final result Updated: 01/07/20 0742 Specimen: Body Fluid from Nares Culture Negative for MRSA by chromogenic agar method. Culture, MRSA [[id number]] Order Status: Canceled Lab Status: No result Specimen: Tissue from Nares Culture, MRSA [[id number]] Order Status: Canceled Lab Status: No result [...] this chart may have been created with sageCrowd voice recognition software. 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 Taking Historical ProviderMD metoclopramide (REGLAN) 10 mg tablet Take 10 mg by mouth 2 times daily. Taking Historical ProviderMD metoprolol tartrate (LOPRESSOR) 50 mg tablet Take 75 mg by mouth 2 times daily. Taking [facility] ondansetron (ZOFRAN ODT) 8 mg disintegrating tablet Take 8 mg by mouth every 8 hours as ne eded for Nausea. Taking Historical ProviderMD pregabalin (LYRICA) 100 mg capsule Take 100 mg by mouth 3 times daily as needed. For pain Taking Emmanuel Saavedra raNITIdine (ZANTAC) 150 mg tablet Take 150 mg by mouth Daily. Taking Vahid ProviderMD Medication review performed and electronically signed by Kay Cleary, Health Program Manager 01/08/2020 1:40 PM Reviewed by Mariama Saavedra, PharmD 01/08/2020 3:02 PM erry, Willard luna MD - 01/08/2020 7:52 AM PDTFormatting of this note might be different from the origi nal. [place] HOSPITALIST PROGRESS NOTE Patient: Brooks Marquez : 1990: Age: 29 y.o. MedRec: [id number] PCP: Emmanuel Saavedra Admission date: 01/06/2020 Hospital [...] III, p/w Diarrhe a and AMS from [facility], found to have DKA and Acute [...] inpatient Willard Aldrich MD 01/08/2020 7:52 AM [facility] Subjective CC Some nausea, mid epigastric discomfort, [...] injection 12.5-25 g 12.5-25 g Intravenous PRN rEika Allison MD 25 g at 01/07/20 1238 [...] at 01/07/20 2042 100 mg at 01/07/20 2042 famotidine (PEPCID) injection 20 mg 20 mg Intravenous Daily Antonino Saavedra, PharmD 20 mg at 01/07/20 0828 heparin 5,000 [...] 10% Hematology and anemia Recent Labs Lab 01/08/2044301/07/2044101/06/20 0328 WBC 7.8 11.8* 18.7* HGB 8.2* 8.3* 7.9* HCT 25.4* 25.3* 25.9* PLT 192 135* 219 NEUPCT 64.6 77.5 79.6 No results for input(s): PROTIME, INR, PTT in the last 168 hours. Recent Labs Lab 01/06/20 0804 IRON 84 TIBC 153* PCTSAT 55.0 FERRITIN 480* [id number] 1,885* FOLATE 2.0* Inflammatory markers Recent Labs Lab 01/07/202 01/06/20 0328 LACTATE -- 0.9 PROCALCITONI 1.33* 1.15* Chemistry Recent Labs Lab 01/08/20 04401/07/20 0442 01/07/20 0020 01/06/20 0328 GLU 122* [...] ABG No results for input(s): PHART, PO2ART, YUG5WHT, MIL3TXE, BEART, P0HIXWTX in the last 168 h ours. Recent [...] Date/Time [facility] STAT instructions for COVID-19 tracking [[id number]] Collected: 01/07/20 145 Order Status: Canceled Lab Status: No result Updated: 01/07/20 145 Specimen: Tissue from Nasopharynx Coronavirus (COVID-19) NAAT [[id number]] (Normal) Collected: 01/07/20 1447 Order Status: Completed Lab Status: Final result Updated: 01/07/20 1903 Specimen: Tissue from Nasopharynx SARS coronavirus 2 RNA Not Detected Comment: See Scanned Report [facility] STAT instructions for COVID-19 tracking [[id number]] Collected: 01/07/20 1447 Order Status: Completed Lab Status: Final result Updated: 01/07/20 1903 Specimen: Tissue from Nasopharynx [facility] STAT instruction done Stool Pathogens, NAAT [[id number]] (Normal) Collected: 01/06/20428 Order Status: Completed Lab Status: Final result Updated: 01/06/20 0816 Specimen: Stool Campylobacter, NAAT Not Detected Salmonella, NAAT Not Detected Shigella NAAT Not Detected Vibrio, NAAT Not Detected Yersinia enterocolitica, NAAT Not Detected Shigatoxin 1 Not Detected Shigatoxin 2 Not Detected Clostridioides difficle NAAT reflex to Tox Ag [[id number]] Collected: 01/06/20428 Order Status: Completed Lab Status: Final result Updated: 01/06/20 07 Specimen: Stool Narrative: The following orders were created for panel order Clostridioides difficle NAAT reflex to T ox Ag. Procedure Abnormality Status --------- ------ Clostridioides difficile...[[id number]] Final result Please view results for these tests on the individual orders. Clostridioides difficile NAAT Reflex [[id number]] Collected: 01/06/20428 Order Status: Completed Lab Status: Final result Updated: 01/06/20 0705 Specimen: Stool C. difficile, Interp Negative Comment: No Toxigenic C. difficile detected. Consider other causes of Diarrhea. Repeat te sting should not be performed within 7 days. C. difficile, NAAT Negative Fecal leukocytes [[id number]] (Normal) Collected: 01/06/20427 Order Status: Completed Lab Status: Final result Updated: 01/06/20 0504 Specimen: Stool Lactoferrin, Qual Negative Culture, Urine [[id number]] (Normal) Collected: 01/06/20427 Order Status: Completed Lab Status: Preliminary result Updated: 01/07/20 0832 Specimen: Urine, Unspecified Source Culture No growth to date Culture, Blood [[id number]] Collected: 01/06/20 0339 Order Status: Completed Lab Status: Preliminary result Updated: 01/06/20 1641 Specimen: Peripheral Blood Culture No growth: Monitored continually by instrument for 5 days Culture, Blood [[id number]] Collected: 01/06/20 0329 Order Status: Completed Lab Status: Preliminary result Updated: 01/06/20 1641 Specimen: Peripheral Blood Culture No growth: Monitored continually by instrument for 5 days Culture, MRSA [[id number]] (Normal) Collected: 01/06/20 0255 Order Status: Completed Lab Status: Final result Updated: 01/07/20 0742 Specimen: Body Fluid from Nares Culture Negative for MRSA by chromogenic agar method. Culture, MRSA [[id number]] Order Status: Canceled Lab Status: No result Specimen: Tissue from Nares Culture, MRSA [[id number]] Order Status: Canceled Lab Status: No result [...] A p reliminary report was sent by [facility] with no significant discrepancy on 01/06/2020 4 [...] with a number such as "" or "23" to indicate the date of [...] this chart may have been created with sageCrowd voice recognition software. Occasi onal wrong-word or [...] Neumann MD - 01/07/2020 8:12 AM PDT [facility] Adult Hospitalist Progress Note Hospital Day: 1 Patient Summary: Briefly, 29-year-old male with an extensive past medical history most significant for type 1 diabetes mellitus complicated with gastroparesis right BKA and chronic left foot ulc er and CKD stage III who presented initially to [facility] with a chief complaint of di arrhea and confusion transferred to [facility] ICU for DKA and acute on chronic [...] DOSE ADJUSTMENT PROTOCOL Electronically signed by: Antonino Saavedra PharmD 01/06/2020 5:16 AM documented in this encounter Plan of Treatment +--------+ + + + + | Date | Type | Specialty | Care Team | Description | +--------+ + + + + | 03/03/ | Virtual | Nephrology | Winston Whitman MD | | | 2019 | Office | | [address] [facility] | | | | Visit | | [address] [place], [place] | | | | | | [address] | | | | | | | [...] + | [facility] | [address] | [place] | [phone] | | [facility] | | [address] | | | - LABORATORY | | | | + + + + + POC Glucose (01/10/2020 11:03 AM PDT) + +--------+ + + + | Component | Value | Ref Range | Performed | Pathologist | | | | | At | Signature | + +--------+ + + + | Glucose, | 57 (L) | 70 - 109 mg/dL | [facility] | | | POC | | | [...] [address] | [place] | [phone] | | [facility] | | [address] | | | - LABORATORY | | [...] | | POC | | | [facility] | | | | | | MEDICAL [...] ST. | [address] | [place], [place] | [phone] | | [facility] | | [address] | | | - LABORATORY | | [...] | Neutrophils | | K/uL | [facility] | [...] + | [facility] | [address] | [place] | [phone] | | [facility] | | [address] | | | - LABORATORY | | | | + + + + + Magnesium (01/10/2020 4:33 AM PDT) + +-------+ + + + | Component | Value | Ref Range | Performed | Pathologist | | | | | At | Signature | + +-------+ + + + | Magnesium | 1.6 | 1.6 - 2.6 mg/dL | [facility] [...] ST. | [address] | [place], [place] | [phone] | | [facility] | | [address] | | | - LABORATORY | | [...] 2.67 (H) | 0.70 - 1.30 | [facility] | | | | | mg/dL | [facility] | | | | | | MEDICAL | | | | | | CENTER - | | | | | | LABORATORY | | + + + + + + | eGFR if not | 28 (L)Comment: | >=60 | [facility] | | | | GLOMERULAR FILTRATION | mL/min/1.73m2 | [facility] | | | [place] | RATE,ESTIMATED | | MEDICAL | | | | mL/min/1.99v6Tzpr than | | CENTER - | | [...] [address] | [place] | [phone] | | [facility] | | [address] | | | - LABORATORY | | [...] [address] | [place] | [phone] | | [facility] | | [address] | | | - LABORATORY | | [...] ST. | [address] | [place] | [phone] | | [facility] | | [address] | | | - LABORATORY | | [...] [address] | [place] | [phone] | | [facility] | | [address] | | | - LABORATORY | | [...] | | | POC | | | [facility] | | | | | [...] + | [facility] | [address] | [place] | [phone] | | [facility] | | [address] | | | - LABORATORY | | | | + + + + + CBC with Differential (01/09/2020 4:40 AM PDT) + + + + + + | Component | Value | Ref Range | Performed | Pathologist | | | | | At | Signature | + + + + + + | WBC | 5.7 | 4.0 - 11.0 K/uL | [facility] | | | | | [...] | | Immature | | K/uL | [facility] | | | Granulocyte | | [...] | | nRBC | | K/uL | [facility] | | [...] [address] | [place] | [phone] | | [facility] | | [address] | | | - LABORATORY | | | | + + + + + Magnesium (01/09/2020 4:40 AM PDT) + +-------+ + + + | Component | Value | Ref Range | Performed | Pathologist | | | | | At | Signature | + +-------+ + + + | Magnesium | 1.7 | 1.6 - 2.6 mg/dL | [facility] | | | | | | [facility] | | | | | | MEDICAL | | | | | | [place] - | | | | | | LABORATORY | | + +-------+ + + + + + | Specimen | + + | Blood | + + + + + + + | Performing | Address | City/State/Zipcode | Phone Number | | Organization | | | | + + + + + | [facility] | [address] | [place] | [phone] | | [facility] | | [address] | | | - LABORATORY | | [...] 2.91 (H) | 0.70 - 1.30 | [facility] | | | | | mg/dL | [facility] | | | | | | MEDICAL | | | | | | CENTER - | | | | | | LABORATORY | | + + + + + + | eGFR if not | 26 (L)Comment: | >=60 | [facility] | | | | GLOMERULAR FILTRATION | mL/min/1.73m2 | [facility] | | | [place] | RATE,ESTIMATED | | MEDICAL | | | | mL/min/1.43v7Frsb than | | CENTER - | | [...] [address] | [place] | [phone] | | [facility] | | [address] | | | - LABORATORY | | [...] + | [facility] | [address] | [place] | [phone] | | [facility] | | [address] | | | - LABORATORY | | [...] | | | POC | | | [facility] | | | | | [...] [address] | [place] | [phone] | | [facility] | | [address] | | | - LABORATORY | | [...] ST. | [address] | [place] | [phone] | | [facility] | | [address] | | | - LABORATORY | | [...] [address] | [place] | [phone] | | [facility] | | [address] | | | - LABORATORY | | [...] mL/min/1.73m2 | [facility] | | | [place] | RATE,ESTIMATED | | MEDICAL | | | | mL/min/1.79j5Rrhb than | | CENTER - | | [...] (H) | 2.4 - 5.1 mg/dL | [facility] | | | | [...] [address] | [place] | [phone] | | [facility] | | [address] | | | - LABORATORY | | [...] [address] | [place] | [phone] | | [facility] | | [address] | | | - LABORATORY | | | | + + + + + Magnesium (01/08/2020 4:44 AM PDT) + +-------+ + + + | Component | Value | Ref Range | Performed | Pathologist | | | | | At | Signature | + +-------+ + + + | Magnesium | 1.7 | 1.6 - 2.6 mg/dL | [facility] [...] [address] | [place] | [phone] | | [facility] | | [address] | | | - LABORATORY | | [...] + | [facility] | [address] | [place] | [phone] | | [facility] | | [address] | | | - LABORATORY | | | | + + + + + POC Glucose (01/07/2020 8:26 PM PDT) + +-------+ + + + | Component | Value | Ref Range | Performed | Pathologist | | | | | At | Signature | + +-------+ + + + | Glucose, | 96 | 70 - 109 mg/dL | [facility] [...] + | [facility] | [address] | [place] | [phone] | | [facility] | | [address] | | | - LABORATORY | | [...] [address] | [place] | [phone] | | [facility] | | [address] | | | - LABORATORY | | [...] [address] | [place] | [phone] | | [facility] | | [address] | | | - LABORATORY | | [...] [address] | [place] | [phone] | | [facility] | | [address] | | | - LABORATORY | | [...] ST. | [address] | [place] | [phone] | | [facility] | | [address] | | | - LABORATORY | | [...] [address] | [place] | [phone] | | [facility] | | [address] | | | - LABORATORY | | [...] + | [facility] | [address] | [place] | [phone] | | [facility] | | [address] | | | - LABORATORY | | | | + + + + + POC Glucose (01/07/2020 5:22 AM PDT) + +-------+ + + + | Component | Value | Ref Range | Performed | Pathologist | | | | | At | Signature | + +-------+ + + + | Glucose, | 105 | 70 - 109 mg/dL | [facility] | [address] | [place], [place] | [phone] | | [facility] | | [address] | | | - LABORATORY | | [...] [address] | [place] | [phone] | | [facility] | | [address] | | | - LABORATORY | | [...] + | [facility] | [address] | [place] | [phone] | | [facility] | | [address] | | | - LABORATORY | | [...] | | GLOMERULAR FILTRATION | mL/min/1.73m2 | [facility] | | | [place] | RATE,ESTIMATED | | MEDICAL | | | | mL/min/1.98a5Isdc than | | CENTER - | | [...] | | | | | mg/dL | [facility] | | | | | | MEDICAL | | | | | | CENTER - | | | | | | LABORATORY | | + + + + + + | Albumin | 2.4 (L) | 3.2 - 4.8 g/dL | [facility] | | | | | | [facility] | | | | | [...] | | Phosphatase | | | [facility] | | [...] | | bulin Ratio | | | [facility] | [...] [address] | [place] | [phone] | | [facility] | | [address] | | | - LABORATORY | | [...] [address] | [place] | [phone] | | [facility] | | [address] | | | - [...] | | | | WBCs | [facility] | | | | [...] + | [facility] | [address] | [place] | [phone] | | [facility] | | [address] | | | - LABORATORY | | [...] + | [facility] | [address] | [place] | [phone] | | [facility] | | [address] | | | - LABORATORY | | [...] [address] | [place] | [phone] | | [facility] | | [address] | | | - LABORATORY | | [...] + | [facility] | [address] | [place], [place] | [phone] | | [facility] | | [address] | | | - LABORATORY | | [...] [address] | [place] | [phone] | | [facility] | | [address] | | | - LABORATORY | | [...] [address] | [place] | [phone] | | [facility] | | [address] | | | - LABORATORY | | | | + + + + + Magnesium (01/07/2020 12:20 AM PDT) + +-------+ + + + | Component | Value | Ref Range | Performed | Pathologist | | | | | At | Signature | + +-------+ + + + | Magnesium | 1.9 | 1.6 - 2.6 mg/dL | [facility] [...] [address] | [place] | [phone] | | [facility] | | [address] | | | - LABORATORY | | [...] mL/min/1.73m2 | [facility] | | | [place] | RATE,ESTIMATED | | MEDICAL | | | | mL/min/1.26v4Fazc than | | CENTER - | | [...] | | ine Ratio | | | [facility] | | | [...] [address] | [place] | [phone] | | [facility] | | [address] | | | - LABORATORY | | [...] | + + + + + | [facility] | [address] | [place] | [phone] | | [facility] | | [address] | | | - LABORATORY | | [...] + | [facility] | [address] | [place] | [phone] | | [facility] | | [address] | | | - LABORATORY | | [...] + | [facility] | [address] | [place] | [phone] | | [facility] | | [address] | | | - LABORATORY | | [...] ST. | [address] | [place] | [phone] | | [facility] | | [address] | | | - LABORATORY | | [...] [address] | [place] | [phone] | | [facility] | | [address] | | | - LABORATORY | | [...] ST. | [address] | [place] | [phone] | | [facility] | | [address] | | | - LABORATORY | | [...] [address] | [place] | [phone] | | [facility] | | [address] | | | - LABORATORY | | [...] mL/min/1.73m2 | [facility] | | | [place] | RATE,ESTIMATED | | MEDICAL | | | | mL/min/1.77c1Idfh than | | CENTER - | | [...] + | [facility] | [address] | [place] | [phone] | | [facility] | | [address] | | | - LABORATORY | | [...] [address] | [place] | [phone] | | [facility] | | [address] | | | - LABORATORY | | [...] + | [facility] | [address] | [place] | [phone] | | [facility] | | [address] | | | - LABORATORY | | [...] [address] | [place] | [phone] | | [facility] | | [address] | | | - LABORATORY | | [...] [address] | [place] | [phone] | | [facility] | | [address] | | | - LABORATORY | | [...] [address] | [place] | [phone] | | [facility] | | [address] | | | - LABORATORY | | [...] HIGINIO | | | | | | CURLY [...] + | [facility] | [address] | [place] | [phone] | | [facility] | | [address] | | | - LABORATORY | | [...] not | 17 (L)Comment: | >=60 | [facility] | | | | GLOMERULAR FILTRATION | mL/min/1.73m2 | [facility] | | | [place] | RATE,ESTIMATED | | MEDICAL | | | | mL/min/1.58i4Lbjc than | | CENTER - | | [...] | | | | | mg/dL | [facility] | | | | | | MEDICAL | | | | | | CENTER - | | | | | | LABORATORY | | + + + + + + | BUN/Creatin | 15.5 | | [facility] | | | ine Ratio | | | [facility]Y | | | | | | MEDICAL | | | | | | CENTER - | | | | | | LABORATORY | | + + + + + + + + | Specimen | + + | Blood | + + + + + + + | Performing | Address | City/State/[facility] | Phone Number | | Organization | | | | + + + + + | HIGINIO FORD. | [address] | [place] | [phone] | | [facility] | | [address] | | | - LABORATORY | | [...] + | [facility] | [address] | [place] | [phone] | | [facility] | | [address] | | | - LABORATORY | | [...] | | | report was sent by [employer]rax[employer] with no significant discrepancy on | | [...] preliminary report was | | sent by [employer] with no significant discrepancyon 01/06/2020 4:25 PM.Dictated [...] | |A preliminary report was sent by Elyria Cheyipai with no significant discrepancy | |on 01/06/2020 [...] | | POC | | | [facility] | | | | | [...] [address] | [place] | [phone] | | [facility] | | [address] | | | - LABORATORY | | [...] [address] | [place] | [phone] | | [facility] | | [address] | | | [...] + | [facility] | [address] | [place] | [phone] | | [facility] | | [address] | | | - LABORATORY | | [...] [address] | [place] | [phone] | | [facility] | | [address] | | | - LABORATORY | | [...] + | [facility] | [address] | [place] | [phone] | | [facility] | | [address] | | | - LABORATORY | | [...] 4.08 (H) | 0.70 - 1.30 | [facility] [...] mL/min/1.73m2 | [facility] | | | [place] | RATE,ESTIMATED | | MEDICAL | | | | mL/min/1.16e5Dqak than | | CENTER - | | [...] ST. | [address] | [place], [place] | [phone] | | [facility] | | [address] | | | - LABORATORY | | [...] + | [facility] | [address] | [place] | [phone] | | [facility] | | [address] | | | - LABORATORY | | [...] [address] | [place] | [phone] | | [facility] | | [address] | | | - LABORATORY | | | | + + + + + POC Glucose (01/06/2020 10:02 AM PDT) + +---------+ + + + | Component | Value | Ref Range | Performed | Pathologist | | | | | At | Signature | + +---------+ + + + | Glucose, | 402 (H) | 70 - 109 mg/dL | [facility] | | | POC | | | [...] [address] | [place] | [phone] | | [facility] | | [address] | | | - LABORATORY | | [...] [address] | [place] | [phone] | | [facility] | | [address] | | | - LABORATORY | | [...] [address] | [place] | [phone] | | [facility] | | [address] | | | - LABORATORY | | [...] [address] | [place] | [phone] | | [facility] | | [address] | | | - LABORATORY | | | | + + + + + Vitamin B-12 01/06/2020 8:04 AM PDT) + + + + + + | Component | Value | Ref Range | Performed | Pathologist | | | | | At | Signature | + + + + + + | VITAMIN | 1,885 (H)Comment: | 156 - 672 pg/mL | [facility] | | | B-12 | DEFICIENT: | [...] + | [facility] | [address] | [place], [place] | [phone] | | [facility] | | [address] | | | - LABORATORY | | | | + + + + + Ferritin (01/06/2020 8:04 AM PDT) + +---------+ + + + | Component | Value | Ref Range | Performed | Pathologist | | | | | At | Signature | + +---------+ + + + | FERRITIN | 480 (H) | 11 - 307 ng/mL | [facility] | | | | | | [facility] | | | | | [...] ST. | [address] | [place], [place] | [phone] | | [facility] | | [address] | | | - LABORATORY | | [...] [address] | [place] | [phone] | | [facility] | | [address] | | | - LABORATORY | | [...] St | [place] | | | [facility] | | [address] | | | - BLOOD BANK | [...] mg/dL | HIGINIO | | | | Consistent with previous [...] [address] | [place] | [phone] | | [facility] | | [address] | | | - LABORATORY | | | | + + + + + Magnesium (01/06/2020 8:04 AM PDT) + +-------+ + + + | Component | Value | Ref Range | Performed | Pathologist | | | | | At | Signature | + +-------+ + + + | Magnesium | 2.0 | 1.6 - 2.6 mg/dL | [facility] [...] + | [facility] | [address] | [place] | [phone] | | [facility] | | [address] | | | - LABORATORY | | [...] mL/min/1.73m2 | [facility] | | | [place] | RATE,ESTIMATED | | MEDICAL | | | | mL/min/1.15i4Ecbx than | | CENTER - | | [...] [address] | [place] | [phone] | | [facility] | | [address] | | | - LABORATORY | | [...] + | [facility] | [address] | [place] | [phone] | | [facility] | | [address] | | | - LABORATORY | | [...] + | [facility] | [address] | [place] | [phone] | | [facility] | | [address] | | | - LABORATORY | | [...] + | [facility] | [address] | [place] | [phone] | | [facility] | | [address] | | | - LABORATORY | | [...] | | POC | | | [facility] | | | | | [...] [address] | [place] | [phone] | | [facility] | | [address] | | | - LABORATORY | | [...] + | [facility] | [address] | [place] | [phone] | | [facility] | | [address] | | | - LABORATORY | | [...] + | [facility] | [address] | [place] | [phone] | | [facility] | | [address] | | | - LABORATORY | | [...] [address] | [place] | [phone] | | [facility] | | [address] | | | - LABORATORY | | [...] | , Qual | | | [facility] | | [...] + | [facility] | [address] | [place] | [phone] | | [facility] | | [address] | | | - LABORATORY | | [...] | | | Urine, | | | [facility] | | | Random | | | [...] + | [facility] | [address] | [place], [place] | [phone] | | [facility] | | [address] | | | - LABORATORY | | [...] + | Performed at: 01 - [facility] [place] [address], | REFERENCE LAB | | [place], [place] [id number] Cover Inspector: Jerome Agudelo MD, Phone: | MICHELLE - CIERRA | | [phone] | | + + + + + + + + | Performing | Address | City/State/Zipcode | Phone Number | | Organization | | | | + + + + + | REFERENCE LAB | [address] | [place], [place] | [phone] | | [facility] | Drive [facility] | [address] | | + + + + + [...] + | [facility] | [address] | [place] | [phone] | | [facility] | | [address] | | | - LABORATORY | | [...] - 1.030 | [facility] | | | [place], | | | [facility] | | [...] | | Urine | | | [facility] | | [...] + | [facility] | [address] | [place] | [phone] | | [facility] | | [address] | | | - LABORATORY | | [...] ST. | [address] | [place] | [phone] | | [facility] | | [address] | | | - LABORATORY | | [...] | | | incubation. | | [facility] | | | [...] [address] | [place] | [phone] | | [facility] | | [address] | | | - LABORATORY | | [...] | | | | CRISTINE HUDDLESTON MD ([id number]) | | | | | | on [...] | | | incubation. | | [facility] | | | [...] + | [facility] | [address] | [place] | [phone] | | [facility] | | [address] | | | - LABORATORY | | [...] | Critical Result called | | [facility] | | | | to and read back by Chata | | MEDICAL | | | Jaquan Guzman RN on | | CENTER - [...] [address] | [place] | [phone] | | [facility] | | [address] | | | - LABORATORY | | | | + + + + + Magnesium (01/06/2020 3:28 AM PDT) + +-------+ + + + | Component | Value | Ref Range | Performed | Pathologist | | | | | At | Signature | + +-------+ + + + | Magnesium | 2.1 | 1.6 - 2.6 mg/dL | [facility] [...] + | [facility] | [address] | [place] | [phone] | | [facility] | | [address] | | | - LABORATORY | | [...] + | [facility] | [address] | [place] | [phone] | | [facility] | | [address] | | | - LABORATORY | | | | + + + + + Procalcitonin (01/06/2020 3:28 AM PDT) + + + + + + | Component | Value | Ref Range | Performed | Pathologist | | | | | At | Signature | + + + + + + | Procalciton | 1.15 (H) | <=0.50 ng/mL | [facility] | | | in | | | [facility] | | [...] [address] | [place] | [phone] | | [facility] | | [address] | | | - LABORATORY | | [...] [address] | [place] | [phone] | | [facility] | | [address] | | | - LABORATORY | | | | + + + + + Troponin I (01/06/2020 3:28 AM PDT) + + + + + + | Component | Value | Ref Range | Performed | Pathologist | | | | | At | Signature | + + + + + + | Troponin I | 0.01Comment: | <0.06 ng/mL | [facility] | | | | Comment:Reference | | [...] | | | | | | [employer] | | | | | [...] + + | Performing | Address | City/State/[facility] | Phone Number | | Organization | | | | + + + + + | [facility] | [address] | [place] | [phone] | | [facility] | | [address] | | | - LABORATORY | | [...] | | | | mmol/L | [facility] | | | | | [...] by Chata | | MEDICAL | | Jaquan Guzman RN on | | CENTER - | | | | 01/06/2020 at 4:36 AM by | | LABORATORY | | | | Nabeel Watlon. | | | | + + + [...] + + + | Glucose | 612 (HH)Comment: | 60 - 106 mg/dL | [facility] [...] | [facility] | | | | | [facility] | | | | | | MEDICAL | | | | | | CENTER - | | | | | | LABORATORY | | + + + + + + | Creatinine | 4.16 (H) | 0.70 - 1.30 | [facility] [...] | | GLOMERULAR FILTRATION | mL/min/1.73m2 | [facility] | | | [place] | RATE,ESTIMATED | | MEDICAL | | | | mL/min/1.61t0Zloi than | | CENTER - | | [...] + | [facility] | [address] | [place] | [phone] | | [facility] | | [address] | | | - LABORATORY | | [...] | | | | | M/uL | [facility] | | | | [...] | | nRBC | | K/uL | [facility] | | [...] [address] | [place] | [phone] | | [facility] | | [address] | | | - LABORATORY | | [...] [address] | [place] | [phone] | | [facility] | | [address] | | | - LABORATORY | | | | + + + + + Culture, MRSA (01/06/2020 2:55 AM PDT) + + + + + + | Component | Value | Ref Range | Performed | Pathologist | | | | | At | Signature | + + + + + + | Culture | Negative for MRSA by | | [facility] | | | | chromogenic agar method. [...] [address] | [place] | [phone] | | [facility] | | [address] | | | - LABORATORY | | [...] + | PATIENT | 37.0 | | [facility] | | | TEMP | | | [...] [address] | [place] | [phone] | | [facility] | | [address] | | | - LABORATORY | | [...] (HCC) | + + | Diabetic gastroparesis (HCC) 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, not stated as uncontrolled | + + | Diabetic ulcer of left foot associated with type 1 diabetes mellitus, unspecified part | | of foot, unspecified ulcer stage (HCC) | + + documented in this [...] | 0.45% with KCl 20 mEq/L (D5 1/2 | | 20 12:20 | | mL/hr [...] | | | | | NPO, Daytime 4004-8121 Use NIGHT | | | | | | | DOSE for doses scheduled: | | | | | | | HS, Nighttime 2874-0109 If the | | | | | [...] | | | | | TITRATED, Starting [place] 01/06/20 at | | | | | [...] | | | | last modification) on 01/07/20 | | | | | | | [...] | Decreased Responsiveness, | | | Starting 01/07/20 at 0225 | | + +---+ | [...] 20 12:40 | | | | | Hossein 01/08/20 at 1245, For 1 dose | [...] AM PDT | | | | | 01/06/20 at 0300, Discontinue | | | [...]
--- OUTSIDE RECORDS SUMMARY | ~2020-02-15 | XMS | Encounter Summary ---
Demographics + + + | Address | [address] | | | [place] [address] | + + + | Home Phone | | + + + | Preferred Language | Unknown | + + + | Marital Status | Single | + + + | Sikh Affiliation | NON | + + + [...] Samantha Ramos | ECON | [address] | | | | | [place] | | | | | [address] | | + + + + + Care Team Providers + +------+ + | Care Grapple Yarder Operator Name | Role | Phone | [...] | | | | unspecified | [facility] [address] | [address] | | | | | type | DIAMANTE Hanna | Wendy | | | | | Procedures | [facility] | [place], [place] | | | | | CONSULT TO | Rd | [address] | | | | | HEMATOLOGY / | [place], [place] | Phone: | | | | | ONCOLOGY | [address] | [phone] | | | | | [place] NEW | Phone: | Fax: | | | | | PATIENT | [phone] | [phone] | | | | | LEVEL V MT | Fax: | | | | | | EST PATIENT | [phone] | | | | | | LEVEL [...] | Diabetic | Lashawn Tan, | Ch[facility] | | | | | gastroparesi | PA-C [address] | | | | | s (HCC) | [facility] | Mailcode: | | | | | Abdominal | Gurpreet Bautista | [address] | | | | | pain, | Rd | for Health | | | | | chronic, | [place], [place] | and Healing, | | | | | epigastric | [address] | [address] | | | | | Chronic | Phone: | [place], [place] | | | | | diarrhea | [phone] | [address] | | | | | Severe | Fax: | Phone: | | | | | protein-judy | [phone] | [phone] | | | | | danyel | | Fax: | | | | | malnutrition | | [phone] | | | | | (HCC) | [...] Care Coordination | | 2019 | | [facility] at [facility] [address] | [facility] [address] [facility] | (Local provider, | | | | Zee Nguyen | [address] | local labs) | | | | Mailcode: Diagonal | [place], [place] | | | | | [facility] and | [address] | | | | | [place] [address] | [phone] | | | | | [place], [place] | | | | | | [address] | | | | | | [phone] | | | +--------+ + + + [...]
--- OUTSIDE RECORDS SUMMARY | ~2020-02-15 | XMS | Encounter Summary ---
Demographics + + + | Address | [address] | | | [place] [address] | + + + | Home Phone [...] Samantha Ramos | ECON | [address] | | | | | [place] | | | | | [address] | | + + + + + Care Team Providers + +------+ + | Care Yarder Boss Name | Role | Phone | + [...] | Only | [facility] [address] | COMPUTERIZED TABLE CUTTER [address] | | | | | [address] | [address] | | | | | Mailcode: PV430 | [place] [address] | | | | | [facility] | [phone] | | | | | [place], [place] | | | | | | [address] | | | | | | [phone] | | | +--------+ + + + [...]
--- OUTSIDE RECORDS SUMMARY | ~2020-02-15 | XMS | Encounter Summary ---
Demographics + + + | Address | [address] | | | [place] [address] | + + + | Home Phone [...] Samantha Ramos | ECON | [address] | | | | | [place] | | | | | [address] | | + + + + + Care Team Providers + +------+ + | Care Furniture Assembly Supervisor Name | Role | Phone | [...] | | | | | without | Guprreet Bautista | [address] | | | | | coma | Rd | Physician's | | | | | associated | [place], [place] | [facility] | | | | | with type 1 | [phone] | 140 | | | | | diabetes | Phone: | [place], [place] | | | | | mellitus | [phone] | [address] | | | | | ([facility]) Type | Fax: | Phone: | | | | | 1 diabetes | [phone] | [phone] | | | | | mellitus | | Fax: | | | | | with | | [phone] | | | | | hyperglycemi | | | | | | | a ([facility]) | | | | | | [...] | | | | | hyperglycemi | [facility], [place] | PPV05 | | | | | a ([facility]) | [address] | Physician's | | | | | Procedures | Phone: | [facility] | | | | | CONSULT TO | [phone] | 140 | | | | | ADULT | Fax: | [place], [place] | | | | | DIABETES - | [phone] | [phone] | | | | | EDUCATION | | Phone: | | | | | (DIABETES | | [phone] | | | | | SELF-MANAGEM | | Fax: | | | | | ENT) | | [phone] | +--------+--------+ + + + + Reason [...] + + | 08/25/ | Hospital | [facility] [address] | [address] | | | 2015 - | Encounter | Nathalia Bernardo MD [address] | | | | | 14C [facility] | [address] | | | 08/27/ | | [place], [place] | [place], [place] | | | 2014 | | [address] | [address] | | | | | [phone] | [phone] | | | | | | | | | | | | Harris Martínez MD | | | | | | Chrissie | | | | | | [facility] | | | | | | Center [address] | | | | | | [address] [place], | | | | | | [place] [address] | | | | | | [phone] | | | | | | | | | | | | Jeff Diggs, | | | | | | ,MPH [address] | | | | | | [address] | | | | | | [place], [place] | | | | | | [address] | | | | | | [phone] | | | | | | | | | | | | Eunice Parada, | | | | | | [address] | | | | | | [address] | | | | | | [place], [place] | | | | | | [address] | | | | | | [phone] | | | | | | | [...] Procedures 1. Gastric emptying study Consulting Services: Pulmonary Physical Therapist Reason For Admission: Diabetic ketoacidosis. Hyperglycemia, acute [...] endocrinolog y and diabetes education here at [facility] which were completed. He was counseled on how to rotat e sites for his insulin injections. - Continue glargine 15 units daily + lispro 1 unit per 15 g carb - Outpatient referral to endocrinology and educator senior clinical - Will need outpatient follow up for [...] post-hospitalization follow-up; Appt at 740am Contact information [facility] [address] [place] [facility] [place] [address] Follow up with [facility] at [facility] 1st Floor. Specialty: Endocrinology, Diabetes & Metabolism Why: To establish care; follow up on referral to endocrinology if you do not hear back fr om them in 1 week Contact information [address] [facility] Physicians [place] [address] Physicians [facility] [address] Additional information: [facility], 1st floor [address] [place], [place] [id number] The Physicians [facility] is the building just past [facility]. Turn right immediately past the Pavilion. The entrance to [facility] will be on your right just beyond the main doors to the Pavili. An elevator in e parking garage will take patients directly to the floor of the clinic. The [facility] is located on the 1st floor. Please check in at the medical front desk coordinator. M aps and directions can be found at: [email or web address] Other Discharge Orders and Instructions It was a pleasure taking care of you while you were here at [facility] 1) Take all your medications as prescribed especially your insulin and blood pressure medic ations 2) Follow up with your PCP Dr. Pascual on 09/02 at 740am. 3) Make sure to rotate location of where you inject your insulins and keep close track of y our blood sugars 4) We will make referral to [facility] endocrinology but please follow up [...] nearest ER for evaluation. Referrals placed to [facility] endocrinology and educator senior clinical This note was routed to patient's PCP in [place]. EUNICE PARADA MD Pager - [phone] Glass Artisttearoom host/hostess Clinical and Medicine [facility] Services [facility] I spent 45 minutes coordinating care for this patient's discharge, of which 30 minutes were spent cjjq-br-dwir with the patient as well as with [...] about new lisinopril. Diabetes education provided by chemical educator RNLiz. Pt reports he has all [...] is stating desire to establish with an Air Hammer Stripper. Has not hooper d an channel layer since "Dr Roque" during pediatric years at [facility]. Pt uses insulin syringe and vial [...] home. States willingness to come back to [facility] for endocrinology care, lives in [place]. Hypoglycemia: reports 1-2 occurrences per week, states [...] steven. Pt expresses interest in establishing with channel layer here at [facility], and is willing to review/discuss further insulin pumps with endocrinology team. Informed pt that insulin pump does not take away the work (still need to check BG levels an d count carbs and give bolus doses) Recommendations 1. Encourage pt to attend support group 2. Encourage improving DM self management and care 3. Refer to [facility] diabetes center for endocrinology care 4. Refer to educator senior clinical in diabetes center for updating carb counting [...] LD, RN, CDE Inpatient Diabetes Education Pager: [phone] Eunice Rich MD - 08/26/2015 9:03 AM PST Internal Medicine Clinical Hospitalist Service Progress Note ID/CC: Brooks Marquez (Keith) is a 24 year old man with poorly controlled type 1 diabetes trent litus (HgbA1c in 06/2015 of 12.5%) here with diabetic ketoacidosis in setting of impaired in sulin absorption due to subcutaneous scar tissue with concurrent lactic acidosis (now [facility] ed), no clear infectious etiology for trigger [...] full code EUNICE PARADA MD Pager - [phone] Glass Artisttearoom host/hostess Clinical and Medicine Teaching Hospitalist Services [facility] I spent 40 minutes kaxq-dn-mtwk with the patient as well as with [...] + + documented in this encounter Results MD GASTRIC EMPTYING STUDY (08/27/2015 2:13 PM PST) [...] VERDE | [address] | [place], [place] | | | TAJNA HAY OF ANNA | [facility] | [address] | | | TESTS | | | [...] MARQUAM | [address] | [place], [place] | | | TANJA HAY OF ANNA | [facility] | [address] | | | TESTS | | | [...] (H) | 60 - 99 mg/dL | [facility] - | | | GLUCOSE, [...] + + + | VERITO VERDE | [address] | [place], [place] | | | SAT[place] CAL NEV ARI OF [facility] | [address] | [address] | | | TESTS | | | [...] | LABORATORY | | | [place] | | | SERVICES, | | | [...] | + + + + + | [facility]ORY | [address] | [place] [address] | | | SERVICES, CORE | ZENA [...] 97 | 60 - 99 mg/dL | [facility] - | | | GLUCOSE, [...] VERDE | [address] | [place] | | | TANJA HAY OF CARE | [address] | [address] | | | TESTS | | | [...] AMMON | [address] | [place], [place] | | | TANJA HAY OF ANNA | [address] | [address] | | | TESTS | | | [...] - AMMON | [address] | [place], [place] | | | TANJA HAY OF CARE | [facility] | [address] | | | TESTS | | | [...] VERDE | [address] | [place] | | | TANJA HAY OF CARE | [facility] | [address] | | | TESTS | | | [...] AMMON | [address] | [place], [place] | | | TANJA HAY OF ANNA | [address] | [address] | | | TESTS | | | [...] - AMMON | [address] | [place], [place] | | | TANJA HAY OF CARE | [facility] | [address] | | | TESTS | | | [...] (H) | 60 - 99 mg/dL | [facility] - | | | GLUCOSE, [...] VERDE | [address] | [place] | | | TANJA HAY OF [facility] | [address] | [address] | | | TESTS | | | [...] AMMON | [address] | [place], [place] | | | TANJA HAY OF ANNA | [address] | [address] | | | TESTS | | | [...] - AMMON | [address] | [place], [place] | | | TANJA HAY OF CARE | [facility] | [address] | | | TESTS | | | [...] (H) | 60 - 99 mg/dL | [facility] - | | | GLUCOSE, [...] VERDE | [address] | [place] | | | TANJA HAY OF [facility] | [facility] | [address] | | | TESTS | | | [...] AMMON | [address] | [place], [place] | | | TANJA HAY OF ANNA | [address] | [address] | | | TESTS | | | [...] | LABORATORY | | | [place] | | | SERVICES, | | | [...] | + + + + + | [facility] | [address] | [place] [address] | | | SERVICES, CORE | ZENA [...] MARQUAM | [address] | [place] | | | SAT[place] POINT OF CARE | [address] | [address] | | | TESTS | | | [...] AMMON | [address] | [place], [place] | | | TANJA HAY OF CARE | [address] | [address] | | | TESTS | | | [...] (H) | 60 - 99 mg/dL | [facility] - | | | GLUCOSE, [...] VERDE | [address] | [place], [place] | | | TANJA HAY OF ANNA | [address] | [address] | | | TESTS | | | [...] MARQUAM | [address] | [place] | | | SAT[place] POINT OF CARE | [address] | [address] | | | TESTS | | | [...] AVELINAAM | [address] | [place], [place] | | | TANJA HAY OF CARE | [address] | [address] | | | TESTS | | | [...] VERDE | [address] | [place], [place] | | | TANJA HAY OF ANNA | [address] | [address] | | | TESTS | | | [...] MARQUAM | [address] | [place] | | | SAT[place] POINT OF CARE | [address] | [address] | | | TESTS | | | [...] VERDE | [address] | [place], [place] | | | [place] CAL [place] OF [facility] | [address] | [address] | | | TESTS | | | [...] | LABORATORY | | | [place] | | | SERVICES, | | | [...] the MDRD equation recommended by the | [facility] | | National Kidney Disease Education Program. [...] [facility] | [address] | [place] [address] | | | SERVICES, CORE | PARK [...] [facility] | [address] | [place] [address] | | | ZOEY DODD | ZENA [...] MARQUAM | [address] | [place], [place] | | | TANJA HAY OF CARE | [facility] | [address] | | | TESTS | | | [...] VERDE | [address] | [place] | | | TANJA HAY OF CARE | [address] | [address] | | | TESTS | | | [...] MARQUAM | [address] | [place], [place] | | | TANJA HAY OF ANNA | [address] | [address] | | | TESTS | | | [...] AMMON | [address] | [place], [place] | | | SAT[place] POINT OF [facility] | [address] | [address] | | | TESTS | | | [...] activity: 50-100 | | | mg/dLDepression of LINE INSTALLER: >100 mg/dLFatalities reported: >400 mg/dL | | | Acetone, Methanol and Isopropanol:<5 mg/dL: Reported as Not | | | Detected<10 mg/dL but >5 mg/dL: Reported as <10 mg/dL>10 mg/dL: | | | Reported as measured numeric value Test performed by: [facility] | | | [facility] [address] [address] | | |<5 mg/dL: Reported as Not Detected | | |<10 mg/dL but >5 mg/dL: Reported as <10 mg/dL | | |>10 mg/dL: Reported as measured numeric value | | | | | |Test performed by: | | |[facility] | | |[address] | | |[place] [address] | | + + + + + [...] VERDE | [address] | [place], [place] | | | TANJA HAY OF ANAN | [facility] | [address] | | | TESTS | | | [...] [facility] | [address] | [place] [address] | | | SERVICES, CORE | PARK [...] | LABORATORY | | | [place] | | | SERVICES, | | | [...] the MDRD equation recommended by the | [facility] | | National Kidney Disease [...] [facility] | [address] | [place] [address] | | | SERVICES, CORE | PARK [...] | + + + + + | [facility] | [address] | [place] [address] | | | SERVICES, CORE | ZENA [...] MARQUAM | [address] | [place] | | | TANJA HAY OF CARE | [address] | [address] | | | TESTS | | | [...] VERDE | [address] | [place] | | | SAT[place] POINT OF CARE | [address] | [address] | | | TESTS | | | [...] MARQUAM | [address] | [place] | | | SAT[place] POINT OF CARE | [address] | [address] | | | TESTS | | | [...] MARQUAM | [address] | [place] | | | TANJA HAY OF ANNA | [facility] | [address] | | | TESTS | | | [...] VERDE | [address] | [place] | | | SAT[place] POINT OF CARE | [address] | [address] | | | TESTS | | | [...] | + + + + + | [facility] | [address] | [place] [address] | | | SERVICES, CORE | ZENA [...] | + + + + + | [facility] | [address] | [place] [address] | | | SERVICES, CORE | PARK [...] | + + + + + | [facility] | [address] | [place] [address] | | | SERVICES, CORE | ZENA [...] 24 | 22 - 29 mmol/L | [facility] - | | | | | | MARARTEMIO | | | | | | TANJA HAY | | | | | | OF CARE | | | | | | TESTS | | + + + + + + | GLUCOSE, | >700 (AA) | 60 - 99 mg/dL | [facility] - | | | POC | | | MARQUAM | | | | | | TANJA HAY | | | | | | OF CARE | | | | | | TESTS | | + + + + + + | BUN, POC | 18 | 6 - 20 mg/dL | [facility] - | | | | [...] AMMON | [address] | [place], [place] | | | TANJA HAY OF CARE | [address] | [address] | | | TESTS | | | [...] AMMON | [address] | [place], [place] | | | TANJA HAY OF ANNA | [address] | [address] | | | TESTS | | | [...] + + | [facility] | [address] | [place], [place] | | | CARDIOLOGY | [address] | [address] | | + + + + + RAINBOW HOLD TUBE - RED TOP (08/25/2015 9:33 PM PST) + + | Specimen | + + | Blood - Blood | | (substance) | + + + + + + + | Performing | Address | City/State/Zipcode | Phone Number | | Organization | | | | + + + + + | [facility] | [address] [facility] | [place] [address] | | | SERVICES, CORE | ZENA [...] [facility] | [address] | [place] [address] | | | SERVICES, CORE | PARK [...] | + + + + + | [facility] | [address] | [place] [address] | | | SERVICES, CORE | ZENA [...] [facility] | [address] | [place] [address] | | | SERVICES, | [address] [...] | LABORATORY | | | [place] | | | SERVICES, | | | [...] | + + + + + | [facility] | [address] | [place] [address] | | | SERVICES, CORE | ZENA [...] [facility] | [address] | [place] [address] | | | YOUSIF, CORE | PARK [...] | + + + + + | [facility] | [address] | [place] [address] | | | SERVICES, CORE | PARK [...] | + + + + + | [facility] | [address] | [place] [address] | | | SERVICES, CORE | ZENA [...] VERDE | [address] | [place] | | | SAT[place] POINT OF CARE | [address] | [address] | | | TESTS | | | | + + + + + ED INFORMATION EXCHANGE (08/25/2015 9:25 PM PST) + + + + + + | Component | Value | Ref Range | Performed | Pathologist | | | | | At | Signature | + + + + + + | [facility]UD[facility] | [id number] | | [facility]LECTIVE | | | | [id number] | | MEDICAL | | | | [...] | ---- | | | 08/25/2015 21:25 [facility] | | | Emergency [address]. Abdominal Pain 08/24/2015 16:44 | | | [facility] Emergency -Abd Pain | | | | | | -Epigastric pain | | | | | | -Cyclical vomiting, intractable | | | | | | -Hyperglycemia, unspecified | | | | | | -Abdominal Pain 08/18/2015 | | | 17:23 [facility] Emergency | | | -Gastroparesis | [...] -Abdominal Pain 08/09/2015 12:53 | | | [facility] Emergency | | | -Abdominal Pain | | | | | | -Generalized abdominal pain | | | | | | -abd pain | | | -Vomiting | | | | | | -Cyclical vomiting, | | | intractable 08/01/2015 20:43 [facility] | | | Hospital Emergency -Cyclical vomiting, intractable | | | | | | -vomiting abd pain | | | | | | -Hyperglycemia | | | | | | -Abdominal Pain | | | | | | -Generalized abdominal pain | | | | | | -Gastroparesis 07/26/2015 16:13 [facility] | | | [facility] Emergency -vomiting, pain, diabetic | | | | | | -Cyclical vomiting, not | | | intractable | | | -Vomiting | | | 05/30/2015 17:01 [facility] | | | Emergency -Abdominal Pain | | | | | | -Finger Injury | | | -abd | | | pain 05/29/2015 21:54 [facility] | | | Emergency -Gangrene | [...] | | | Location ------ --------- 11 [facility] | | | [facility] 1 [facility] | | | [place] 1 [facility] 1 | | | [facility] 14 Total Note: | | | Visits indicate total known visits. | | | | | | --- | | + + + + + + + + | Performing | Address | City/State/Zipcode | Phone Number | | Organization | | | | + + + + + | [facility] | [address] | [place], [place] | [phone] | | TECH[employer]IES | [address] | [address] | | + + + + + [...]
--- OUTSIDE RECORDS SUMMARY | ~2020-02-15 | XMS | Encounter Summary ---
Demographics + + + | Address | [address] | | | [place] [address] | + + + | Home Phone [...] Samantha Ramos | ECON | [address] # | | | | | [place] | | | | | [address] | | + + + + + Care Team Providers + +------+ + | Care Photocomposing Machine Operator Name | Role | Phone [...] | | Endocrinology at | MD [address] [facility] | | | | | Tika | [address] | | | | | [facility] | [place], [place] | | | | | [address] | [address] | | | | | Tika | [phone] | | | | | [place], [place] | | | | | | [address] | | | | | | [phone] | | | +--------+--------+ + + + [...]
--- OUTSIDE RECORDS SUMMARY | ~2020-02-15 | XMS | Encounter Summary ---
Demographics + + + | Address | [address] | | | [place] [address] | + + + | Home Phone [...] Samantha Ramos | ECON | [address] # | | | | | [place] | | | | | [address] | | + + + + + Care Team Providers + +------+ + | Care Patient Service Rep Name | Role | Phone | [...] | | 2015 | | Center at [facility] [address] | | - General | | | | [address] | | | | | | Mailcode: [place] | | | | | | for Health and | | | | | | [facility] | | | | | | [place], [place] | | | | | | [address] | | | | | | [phone] | | | +--------+ + + + [...]
--- OUTSIDE RECORDS SUMMARY | ~2020-02-15 | XMS | Encounter Summary ---
Demographics + + + | Address | [address] | | | [place] [address] | + + + | Home Phone | | + + + | Preferred Language | Unknown | + + + | Marital Status | Single | + + + | Hinduism Affiliation | Unknown | + + + | Race | Unknown | + + + | Ethnic Group | Unknown | + + + Author + + + | Author | [facility] | | | and [place] | + + + | Organization | [facility] | | | [...] [place] | | | | | [address] | | + + + + + Care Team Providers + +------+ + | Care Acid Plant Helper Name | Role | Phone | + +------+ + | Erich Yates | PCP | | + +------+ + Encounter Details +--------+ + + + + | Date | Type | Department | Care Team | Description | +--------+ + + + + | 02/28/ | Documentati | [facility] [place] | [facility], | | | 2019 | on | GASTROENTEROLOGY | DANA [address] | | | | | [address] | [place], [address] | | | | | [address] [place], [place] | [place], [place] | | | | | [address] | [address] | | | | | [phone] | | | +--------+ + + + [...] 02/28/2019 8:47 AM PDTReceived notice from [facility] whe re patient was referred. It states [...] | Office | | [address] [facility] | | | | Visit | | [address] [facility] | | | | | | [address] | | | | | | | | +--------+ + + + + documented as of this encounter Visit Diagnoses Not on filedocumented in this encounter"
--- OUTSIDE RECORDS SUMMARY | ~2020-02-15 | XMS | Encounter Summary ---
Demographics + + + | Address | [address] | | | [place] [address] | + + + | Home Phone [...] Samantha Ramos | ECON | [address] # | | | | | [place] | | | | | [address] | | + + + + + Care Team Providers + +------+ + | Care Engagement Quality Consultant Name | Role | Phone | [...] 2019 | | Center at [facility] [address] | [address] | Review | | | | [address] | [place], [place] | | | | | Mailcode: Center | [address] | | | | | for Health and | [phone] | | | | | [place] [address] | | | | | | [place], [place] | | | | | | [address] | | | | | | [phone] | | | +--------+ + + + [...]
--- OUTSIDE RECORDS SUMMARY | ~2020-02-15 | XMS | Encounter Summary ---
Demographics + + + | Address | [address] | | | [place] [address] | + + + | Home Phone [...] Samantha Ramos | ECON | [address] # | | | | | [place] | | | | | [address] | | + + + + + Care Team Providers + +------+ + | Care Applied Researcher Name | Role | Phone | + +------+ + PCP | Unavailable | + +------+ + Encounter Details +--------+ + + + + | Date | Type | Department | Care Team | Description | +--------+ + + + + | 08/27/ | Office | [facility] | Clinic, Pediatric | Progress Note | | 2005 | Visit-Trans | NEUROSURGERY PHYSICIAN | Endocrinology | | | | cribed [...] as of this encounter Progress Notes Interface, [employer] In - 10/18/2005 10:01 PM PST [id number] MARQUEZ RAYMOND BROOKS [facility] Date: 08/27/2005 [...] the school week, his father lives in [place], and apparently the school is better and [...] was 56. Diet: Brooks is on a azjmzzhaujif-cm-lmyefhy ratio. He has had dietary education about [...] sites. Assessment: Brooks is a 14-year and 77-tirrz-wre boy with type 1 diabetes, who has poor control although it is somewhat improved from previously. He is relatively noncompliant with his diabetes. I have made the following recommendations: 1. I have asked the family to review carbohydrate counting with our radio adjuster today. 2. I have recommended to Brooks [...] in 4 months' time. Ashanti Roque M.D. Customer Facilities Supervisor Pediatric Endocrinology / [id number] / [phone] / [phone] / [phone] cc: Neri Mojica [address] [facility] [place] [address]. Electronically signed by Ashanti Roque 09-10-2005 04:52:54 PM documented i n this encounter Plan of Treatment Not on filedocumented as of this encounter Visit Diagnoses Not on filedocumented in this encounter"
--- OUTSIDE RECORDS SUMMARY | ~2020-02-15 | XMS | Encounter Summary ---
Demographics + + + | Address | [address] | | | [place] [address] | + + + | Home Phone [...] Samantha Ramos | ECON | [address] # | | | | | [place] | | | | | [address] | | + + + + + Care Team Providers + +------+ + | Care Office Machine Servicer Apprentice Name | Role | Phone | [...] | | | type) | CLINIC | [facility] | | | | | diabetes | [address] | Rd | | | | | mellitus | BUILDING | [place], [place] | | | | | without | [address] | [address] | | | | | mention of | [address] | Phone: | | | | | complication | [place], | [phone] | | | | | , not stated | [place] [address] | Fax: | | | | | as | Phone: | [phone] | | | | | uncontrolled | [phone] | | | | | | | Fax: | | | | | | | [phone] | | +--------+ + + + + [...] (Primary Dx) | | | | Center [facility] | [facility] | | | | | Pavilion [address] | [place], [place] | | | | | [address] | [address] | | | | | Physician's | [phone] | | | | | Pavilion, [address] | | | | | | [place], [place] | | | | | | [address] | | | | | | [phone] | | | +--------+---------+ + + + [...] week a nd fax to me on [phone]- or call/email earlier if blood sugars running consistently low . My email address is [email or web address] 2. Take 1 unit insulin for [...] 1 week and fax to me on [phone] or call/email earlier if blood sarabia gars running consistently low. My email address is [email or web address] 2. Take 1 unit insulin for [...] | + + +--------+ + + | CO COLLECTION | Procedures | Routin | DM w/o | Ordered: 11/01/2007 | | CAPILLARY BLOOD | | e | Complication Type I | | | SPECIMEN | | | | | + + +--------+ + + | CO GLYCATED | Lab | Routin | DM [...] VERDE | [address] | [place], [place] | | | SATNAM POINT OF CARE | [address] | [address] | | | TESTS | | | | + + + + + | [facility] | [address] | [place], [place] | | | TESTS | [address] | [address] | | + + + + + documented in this encounter Visit Diagnoses + + | Diagnosis | + + | Type I (juvenile type) diabetes mellitus without mention of complication, not stated | | as uncontrolled - Primary | + + documented in this encounter
--- OUTSIDE RECORDS SUMMARY | ~2020-02-15 | XMS | Encounter Summary ---
Demographics + + + | Address | [address] | | | [place] [address] | + + + | Home Phone [...] Samantha Ramos | ECON | [address] # | | | | | [place] | | | | | [address] | | + + + + + Care Team Providers + +------+ + | Care Remotely Operated Vehicle Name | Role | Phone | + [...] | | 2019 | | Center at [facility] [address] | [address] | Review | | | | Zee Nguyen | [address] | | | | | Mailcode: Center | [place], [place] | | | | | [facility] and | [address] | | | | | [facility] 2 | [phone] | | | | | [place], [place] | | | | | | [address] | | | | | | [phone] | | | +--------+ + + + [...]
--- OUTSIDE RECORDS SUMMARY | ~2020-02-15 | XMS | Encounter Summary ---
Demographics + + + | Address | [address] | | | [place] [address] | + + + | Home Phone [...] Samantha Ramos | ECON | [address] # | | | | | [place] | | | | | [address] | | + + + + + Care Team Providers + +------+ + | Care Mechanical Assembly Name | Role | Phone | + [...] | | 2020 | | Center at [facility] [address] | [address] | | | | | Zee Gallagher Wendy | Lily Todd Parrott, | | | | | Mailcode: [place] | [place] [address] | | | | | for Health and | [phone] | | | | | [facility], [facility] 2 | | | | | | [place], [place] | | | | | | [address] | | | | | | [phone] | | | +--------+ + + + [...]
--- OUTSIDE RECORDS SUMMARY | ~2020-02-15 | XMS | Encounter Summary ---
Demographics + + + | Address | [address] | | | [place] [address] | + + + | Home Phone [...] Samantha Ramos | ECON | [address] # | | | | | [place] | | | | | [address] | | + + + + + Care Team Providers + +------+ + | Care Veterans Services Specialist Name | Role | Phone | [...] | | | with type 1 | [address] | 140 | | | | | diabetes | Phone: | [place], [place] | | | | | mellitus | [phone] | [address] | | | | | ([facility]) Type | Fax: | Phone: | | | | | 1 diabetes | [phone] | [phone] | | | | | mellitus | | Fax: | | | | | with | | [phone] | | | | | hyperglycemi | | | | | | | a ([facility]) | | | | | | [...] | | | | hyperglycemi | [facility], [place] | PPV05 | | | | | a ([facility]) | [address] | Physician's | | | | | Procedures | Phone: | Zeniachadwick Amarilis | | | | | CONSULT TO | [phone] | 140 | | | | | ADULT | Fax: | [place], [place] | | | | | DIABETES - | [phone] | [address] | | | | | EDUCATION | | Phone: | | | | | (DIABETES | | [phone] | | | | | SELF-MANAGEM | | Fax: | | | | | ENT) | | [phone] | +--------+--------+ + + + + Reason [...] + + | 08/25/ | Hospital | [facility] [address] | [address] | | | 2015 - | Encounter | Nathalia Bernardo MD [address] | | | | | 14C [facility] | [address] | | | 08/27/ | | [place], [place] | [place], [place] | | | 2014 | | [address] | [address] | | | | | [phone] | [phone] | | | | | | | | | | | | Harris Martínez MD | | | | | | Chrissie | | | | | | [facility] | | | | | | Center [address] | | | | | | [address] [place], | | | | | | [place] [address] | | | | | | [phone] | | | | | | | | | | | | Jeff Diggs, | | | | | | ,MPH [address] | | | | | | [facility] [address] | | | | | | [place], [place] | | | | | | [address] | | | | | | [phone] | | | | | | | | | | | | Eunice Parada, | | | | | | [address] | | | | | | [facility] [address] | | | | | | [place], [place] | | | | | | [address] | | | | | | [phone] | | | | | | | [...] Procedures 1. Gastric emptying study Consulting Services: Small Engine Trainer Reason For Admission: Diabetic ketoacidosis. Hyperglycemia, acute [...] endocrinolog y and diabetes education here at [facility] which were completed. He was counseled on how to rotat e sites for his insulin injections. - Continue glargine 15 units daily + lispro 1 unit per 15 g carb - Outpatient referral to endocrinology and community health educator - Will need outpatient follow up [...] post-hospitalization follow-up; Appt at 740am Contact information [facility] [address] [place] [address] [facility] 1st Floor. Specialty: Endocrinology, Diabetes & Metabolism Why: To establish care; follow up on referral to endocrinology if you do not hear back fr om them in 1 week Contact information [address] [facility] Physicians [place] [address] Physicians [facility] [address] Additional information: [facility], 1st floor [address] [place], [place] [id number] The Physicians [facility] is the building just past [facility] for [facility]. Turn right immediately past the Pavilion. The entrance to [facility] will be on your right just beyond the main doors to the Pavili. An elevator in e parking garage will take patients directly to the floor of the clinic. The [facility] is located on the 1st floor. Please check in at the patient coordinator front desk. M aps and directions can be found at: [email or web address] Other Discharge Orders and Instructions It was a pleasure taking care of you while you were here at [facility] 1) Take all your medications as prescribed especially your insulin and blood pressure medic ations 2) Follow up with your PCP Dr. Pascual on 09/02 at 740am. 3) Make sure to rotate location of where you inject your insulins and keep close track of y our blood sugars 4) We will make referral to [facility] endocrinology but please follow [...] nearest ER for evaluation. Referrals placed to [facility] endocrinology and community health educator This note was routed to patient's PCP in [employer]. EUNICE PARADA MD Pager - [phone] Nursing Home Managerstations superintendent Clinical and Medicine [facility] Services [facility] I spent 45 minutes coordinating care for this patient's discharge, of which 30 minutes were spent [id number]-it-[id number] with the patient as well as with [...] is stating desire to establish with an Field Secretary. 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 Pt uses insulin syringe and [...] home. States willingness to come back to [facility] for endocrinology care, lives in [place]. [...] steven. Pt expresses interest in establishing with hides inspector here at [facility], and is willing to review/discuss further insulin pumps with endocrinology team. Informed pt that insulin pump does not take away the work (still need to check BG levels an d count carbs and give bolus doses) Recommendations 1. Encourage pt to attend support group 2. Encourage improving DM self management and care 3. Refer to [facility] diabetes center for endocrinology care 4. Refer to community health educator in diabetes center for updating carb [...] LD, RN, CDE Inpatient Diabetes Education Pager: [phone] Eunice Rich MD - 08/26/2015 9:03 AM PST Internal Medicine Clinical Hospitalist Service Progress Note ID/CC: Brooks Marquez (Keith) is a 24 year old man with poorly controlled type 1 diabetes trent litus (HgbA1c in 06/2015 of 12.5%) here with diabetic ketoacidosis in setting of impaired in sulin absorption due to subcutaneous scar tissue with concurrent lactic acidosis (now [facility]), no clear infectious etiology for trigger [...] full code EUNICE PARADA MD Pager - [phone] Nursing Home Managerstations superintendent Clinical and Medicine Teaching Hospitalist Services [facility] [place] I spent 40 minutes [id number]-inau with the patient as well as with [...] + + documented in this encounter Results CO GASTRIC EMPTYING STUDY (08/27/2015 2:13 PM PST) [...] VERDE | [address] | [place], [place] | | | TANJA HAY OF ANNA | [facility] | [address] | | | TESTS | | | [...] MARQUAM | [address] | [place], [place] | | | TANJA HAY OF ANNA | [facility] | [address] | | | TESTS | | | [...] (H) | 60 - 99 mg/dL | [facility] - | | | [...] + + + | VERITO VERDE | [address] | [place], [place] | | | [place] [facility] | [address] | [address] | | | TESTS | | | [...] | + + + + + | [facility] | [address] | [place] [address] | | | SERVICES, CORE | ZENA [...] 97 | 60 - 99 mg/dL | [facility] - | | | [...] VERDE | [address] | [place], [place] | | | TANJA HAY OF CARE | [address] | [address] | | | TESTS | | | [...] AMMON | [address] | [place], [place] | | | TANJA HAY OF ANNA | [address] | [address] | | | TESTS | | | [...] - AMMON | [address] | [place], [place] | | | TANJA HAY OF CARE | [facility] | [address] | | | TESTS | | | [...] VERDE | [address] | [place], [place] | | | TANJA HAY OF CARE | [facility] | [address] | | | TESTS | | | [...] AMMON | [address] | [place], [place] | | | TANJA HAY OF ANNA | [address] | [address] | | | TESTS | | | [...] | | POC | | | TANJA AHY | | | | | | OF [...] - AMMON | [address] | [place], [place] | | | TANJA HAY OF CARE | [facility] | [address] | | | TESTS | | | [...] (H) | 60 - 99 mg/dL | [facility] - | | | [...] VERDE | [address] | [place], [place] | | | TANJA HAY OF [facility] | [address] | [address] | | | TESTS | | | [...] AMMON | [address] | [place], [place] | | | TANJA HAY OF ANNA | [address] | [address] | | | TESTS | | | [...] - AMMON | [address] | [place], [place] | | | TANJA HAY OF CARE | [facility] | [address] | | | TESTS | | | [...] (H) | 60 - 99 mg/dL | [facility] - | | | [...] VERDE | [address] | [place], [place] | | | TANJA HAY OF [facility] | [facility] | [address] | | | TESTS | | | [...] AMMON | [address] | [place], [place] | | | TANJA HAY OF ANNA | [address] | [address] | | | TESTS | | | [...] | + + + + + | [facility] | [address] | [place] [address] | | | SERVICES, CORE | ZENA [...] MARQUAM | [address] | [place], [place] | | | SAT[place] POINT OF CARE | [address] | [address] | | | TESTS | | | [...] AMMON | [address] | [place], [place] | | | TANJA HAY OF CARE | [address] | [address] | | | TESTS | | | [...] (H) | 60 - 99 mg/dL | [facility] - | | | [...] VERDE | [address] | [place], [place] | | | TANJA HAY OF ANNA | [address] | [address] | | | TESTS | | | [...] MARQUAM | [address] | [place], [place] | | | SAT[place] POINT OF CARE | [address] | [address] | | | TESTS | | | [...] AVELINAAM | [address] | [place], [place] | | | TANJA HAY OF CARE | [address] | [address] | | | TESTS | | | [...] VERDE | [address] | [place], [place] | | | TANJA HAY OF ANNA | [address] | [address] | | | TESTS | | | [...] MARQUAM | [address] | [place], [place] | | | [place] POINT OF CARE | [address] | [address] | | | TESTS | | | [...] VERDE | [address] | [place], [place] | | | [place] [facility] | [address] | [address] | | | TESTS | | | [...] the MDRD equation recommended by the | [facility] | | National Kidney Disease Education Program. [...] [facility] | [address] | [place] [address] | | | SERVICES, CORE | [address]ARK [...] [facility] | [address] | [place] [address] | | | ZOEY DODD | ZENA [...] MARQUAM | [address] | [place], [place] | | | TANJA HAY OF CARE | [facility] | [address] | | | TESTS | | | [...] VERDE | [address] | [place], [place] | | | TANJA HAY OF CARE | [address] | [address] | | | TESTS | | | [...] MARQUAM | [address] | [place], [place] | | | TANJA HAY OF ANNA | [address] | [address] | | | TESTS | | | [...] AMMON | [address] | [place], [place] | | | SAT[place] POINT OF [facility] | [address] | [address] | | | TESTS | | | [...] activity: 50-100 | | | mg/dLDepression of SUSTAINABILITY SPECIALIST: >100 mg/dLFatalities reported: >400 mg/dL | | | Acetone, Methanol and Isopropanol:<5 mg/dL: Reported as Not | | | Detected<10 mg/dL but >5 mg/dL: Reported as <10 mg/dL>10 mg/dL: | | | Reported as measured numeric value Test performed by: [facility] | | | [facility] [address] [address] | | |<5 mg/dL: Reported as Not Detected | | |<10 mg/dL but >5 mg/dL: Reported as <10 mg/dL | | |>10 mg/dL: Reported as measured numeric value | | | | | |Test performed by: | | |[facility] | | |[address] | | |[place] [address] | | + + + + + [...] VERDE | [address] | [place], [place] | | | TANJA HAY OF ANNA | [facility] | [address] | | | TESTS | | | [...] [facility] | [address] | [place] [address] | | | SERVICES, CORE | [address]ARK [...] the MDRD equation recommended by the | [facility] | | National Kidney [...] [facility] | [address] | [place] [address] | | | SERVICES, CORE | PARK [...] | + + + + + | [facility] | [address] | [place] [address] | | | SERVICES, CORE | ZENA [...] MARQUAM | [address] | [place], [place] | | | TANJA HAY OF CARE | [address] | [address] | | | TESTS | | | [...] VERDE | [address] | [place], [place] | | | [place] POINT OF CARE | [address] | [address] | | | TESTS | | | [...] MARQUAM | [address] | [place], [place] | | | [place] POINT OF CARE | [address] | [address] | | | TESTS | | | [...] MARQUAM | [address] | [place], [place] | | | TANJA HAY OF ANNA | [facility] | [address] | | | TESTS | | | [...] VERDE | [address] | [place], [place] | | | SAT[place] POINT OF CARE | [address] | [address] | | | TESTS | | | [...] | + + + + + | [facility] | [address] | [place] [address] | | | SERVICES, CORE | ZENA [...] | + + + + + | [facility] | [address] | [place] [address] | | | SERVICES, CORE | PARK [...] | + + + + + | [facility] | [address] | [place] [address] | | | SERVICES, CORE | ZENA [...] 24 | 22 - 29 mmol/L | [facility] - | | | | | | MARARTEMIO | | | | | | TANJA HAY | | | | | | OF CARE | | | | | | TESTS | | + + + + + + | GLUCOSE, | >700 (AA) | 60 - 99 mg/dL | [facility] - | | | POC | | | MARQUAM | | | | | | TANJA HAY | | | | | | OF CARE | | | | | | TESTS | | + + + + + + | BUN, POC | 18 | 6 - 20 mg/dL | [facility] - | | | [...] AMMON | [address] | [place], [place] | | | TANJA HAY OF CARE | [address] | [address] | | | TESTS | | | [...] AMMON | [address] | [place], [place] | | | TANJA HAY OF ANNA | [address] | [address] | | | TESTS | | | [...] + + | [facility] | [address] | [place], [place] | | | CARDIOLOGY | [address] | [address] | | + + + + + RAINBOW HOLD TUBE - RED TOP (08/25/2015 9:33 PM PST) + + | Specimen | + + | Blood - Blood | | (substance) | + + + + + + + | Performing | Address | City/State/Zipcode | Phone Number | | Organization | | | | + + + + + | [facility] | [address] [facility] | [place] [address] | | | SERVICES, CORE | ZENA [...] [facility] | [address] | [place] [address] | | | SERVICES, CORE | PARK [...] | + + + + + | [facility] | [address] | [place] [address] | | | SERVICES, CORE | ZENA [...] [facility] | [address] | [place] [address] | | | SERVICES, | [address] [...] | + + + + + | [facility] | [address] | [place] [address] | | | SERVICES, CORE | ZENA [...] [facility] | [address] | [place] [address] | | | YOUSIF, CORE | PARK [...] | + + + + + | [facility] | [address] | [place] [address] | | | SERVICES, CORE | PARK [...] | + + + + + | [facility] | [address] | [place] [address] | | | SERVICES, CORE | ZENA [...] VERDE | [address] | [place], [place] | | | [place] POINT OF CARE | [address] | [address] | | | TESTS | | | | + + + + + ED INFORMATION EXCHANGE (08/25/2015 9:25 PM PST) + + + + + + | Component | Value | Ref Range | Performed | Pathologist | | | | | At | Signature | + + + + + + | [facility]UD[facility] P[facility] | [id number] | | [facility] | | | | [id number] | | MEDICAL | | | | [...] | ---- | | | 08/25/2015 21:25 [facility] | | | Emergency [address]. Abdominal Pain 08/24/2015 16:44 | | | [facility] Emergency -Abd Pain | | | | | | -Epigastric pain | | | | | | -Cyclical vomiting, intractable | | | | | | -Hyperglycemia, unspecified | | | | | | -Abdominal Pain 08/18/2015 | | | 17:23 [facility] Emergency | | | -Gastroparesis [...] -Abdominal Pain 08/09/2015 12:53 | | | [facility] Emergency | | | -Abdominal Pain | | | | | | -Generalized abdominal pain | | | | | | -abd pain | | | -Vomiting | | | | | | -Cyclical vomiting, | | | intractable 08/01/2015 20:43 [facility] | | | Hospital Emergency -Cyclical vomiting, intractable | | | | | | -vomiting abd pain | | | | | | -Hyperglycemia | | | | | | -Abdominal Pain | | | | | | -Generalized abdominal pain | | | | | | -Gastroparesis 07/26/2015 16:13 [facility] | | | [facility] Emergency -vomiting, pain, diabetic | | | | | | -Cyclical vomiting, not | | | intractable | | | -Vomiting | | | 05/30/2015 17:01 [facility] | | | Emergency -Abdominal Pain | | | | | | -Finger Injury | | | -abd | | | pain 05/29/2015 21:54 [facility] | | | Emergency -Gangrene [...] | | | Location ------ --------- 11 [facility] | | | [facility] 1 [facility] | | | [place] 1 [facility] 1 | | | [facility] 14 Total Note: | | | Visits indicate total known visits. | | | | | | --- | | + + + + + + + + | Performing | Address | City/State/Zipcode | Phone Number | | Organization | | | | + + + + + | [facility] | [address] | [place], [place] | [phone] | | [employer] | [address] | [address] | | + + + + + [...]
--- OUTSIDE RECORDS SUMMARY | ~2020-02-15 | XMS | Encounter Summary ---
Demographics + + + | Address | [address] | | | [place] [address] | + + + | Home Phone | | + + + | Preferred Language | Unknown | + + + | Marital Status | Single | + + + | Christianity Affiliation | Unknown | + + + | Race | Unknown | + + + | Ethnic Group | Unknown | + + + Author + + + | Author | [facility] | | | and [place] | + + + | Organization | [facility] | | | and [place] | + + + | Address | Unknown | + + + | Phone | Unavailable | + + + Support + + + + + | Name | Relationship | Address | Phone | + + + + + | Gai Ramos | ECON | [address] | | | | | [place] | | | | | [address] | | + + + + + Care Team Providers + +------+ + | Care Yard Brakeman Name | Role | Phone | + [...] + + | 09/19/ | Surgery | [facility] | Tc Mora | CYSTOSCOPY W/ | | 2017 | | MED CTR OR INTRA OP | MD Boyd [address] | URETEROSCOPY W/ | | | | [address] | [place] | LASER LITHOTRIPSY | | | | [place] | [address] | WITH STENT PLACEMENT | | | | [address] | | | | | | [phone] | | | +--------+---------+ + + + [...] might be differ ent from the original. [facility] Urology Progress Note Brooks Marquez is [...] 2019 | Office | | [address] [facility] | | | | Visit | | [address] [place], [place] | | | | | | [address] | | | | | | | [...] ST. | [address] | [place], [place] | [phone] | | [facility] | | [address] | | | - LABORATORY | | [...] 2.16 (H) | 0.60 - 1.30 | [facility] | | | | | [...] mL/min/1.73m2 | [facility] | | | [place] | RATE,ESTIMATED | | MEDICAL | | | | mL/min/1.46l6Zthq than | | CENTER - | | [...] + | [facility] | [address] | [place] | [phone] | | [facility] | | [address] | | | - LABORATORY | | [...] [address] | [place] | [phone] | | [facility] | | [address] | | | - LABORATORY | | [...] into the clinical context for interpretation. | [facility] | | | - LABORATORY | + + + + + + + + | Performing | Address | City/State/Zipcode | Phone Number | | Organization | | | | + + + + + | [facility] | [address] | [place] | [phone] | | [facility] | | [address] | | | - LABORATORY | | [...] ST. | [address] | [place] | [phone] | | [facility] | | [address] | | | - LABORATORY | | [...] - 1.030 | [facility] | | | [place], | | | [facility] | | [...] + | [facility] | [address] | [place] | [phone] | | [facility] | | [address] | | | - LABORATORY | | [...] [address] | [place] | [phone] | | [facility] | | [address] | | | - LABORATORY | | [...] [address] | [place] | [phone] | | [facility] | | [address] | | | - LABORATORY | | [...] + | [facility] | [address] | [place] | [phone] | | [facility] | | [address] | | | - LABORATORY | | [...] + | [facility] | [address] | [place] | [phone] | | [facility] | | [address] | | | - LABORATORY | | [...] not | 38 (L)Comment: | >=60 | [place] | | | | GLOMERULAR FILTRATION | mL/min/1.73m2 | [facility] | | | [place] | RATE,ESTIMATED | | MEDICAL | | | | mL/min/1.29r4Ohrs than | | CENTER - | | [...] | 8.7 | 8.3 - 10.5 | [facility] | | | | | mg/dL | [facility] | | | | | | [...] [address] | [place] | [phone] | | [facility] | | [address] | | | - LABORATORY | | [...] + | [facility] | [address] | [place] | [phone] | | [facility] | | [address] | | | - LABORATORY | | [...] MD | | | | | | ([id number]) on 09/21/2018 | | | | | [...] + | [facility] | [address] | [place] | [phone] | | [facility] | | [address] | | | - LABORATORY | | [...] (H) | 4.0 - 11.0 K/uL | [facility] [...] | | | Eosinophils | | | [facility] | | [address] | [place] | [phone] | | [facility] | | [address] | | | - LABORATORY | | [...] (H) | 7 - 18 mg/dL | [facility] | | | | | | [facility] | | | | | | MEDICAL | | | | | | CENTER - | | | | | | LABORATORY | | + + + + + + | Creatinine | 1.90 (H) | 0.60 - 1.30 | [place] | | | | | mg/dL | [facility] | | | | | | MEDICAL | | | | | | CENTER - | | | | | | LABORATORY | | + + + + + + | eGFR if not | 42 (L)Comment: | >=60 | [place] | | | | GLOMERULAR FILTRATION | mL/min/1.73m2 | [facility] | | | [place] | RATE,ESTIMATED | | MEDICAL | | | | mL/min/1.37v3Gqjc than | | CENTER - | | [...] + | [facility] | [address] | [place] | [phone] | | [facility] | | [address] | | | - LABORATORY | | [...] + | [facility] | [address] | [place] | [phone] | | [facility] | | [address] | | | - LABORATORY | | [...] (H) | 7 - 18 mg/dL | [facility] | | | | | | [facility] | | | | | | MEDICAL | | | | | | CENTER - | | | | | | LABORATORY | | + + + + + + | Creatinine | 1.93 (H) | 0.60 - 1.30 | [place] | | | | | mg/dL | [facility] | | | | | | MEDICAL | | | | | | CENTER - | | | | | | LABORATORY | | + + + + + + | eGFR if not | 42 (L)Comment: | >=60 | [place] | | | | GLOMERULAR FILTRATION | mL/min/1.73m2 | [facility] | | | [place] | RATE,ESTIMATED | | MEDICAL | | | | mL/min/1.66s6Shrd than | | CENTER - | | [...] + | [facility] | [address] | [place] | [phone] | | [facility] | | [address] | | | - LABORATORY | | [...] | | POC | | | [facility] | | | | | | [...] [address] | [place] | [phone] | | [facility] | | [address] | | | - LABORATORY | | [...] [facility] | | | | | | at:[phone]. | | | | + + + [...] | | | | | d by [facility]. It has not | | | | [...] Performed at: 01 - Michelle Price [address], | REFERENCE LAB | | [place], [place] [id number] Civil Engineering Assistant: Sarabjit Love MD, Phone: | MICHELLE - CIERRA | | [phone] | | + + + + + + + + | Performing | Address | City/State/Zipcode | Phone Number | | Organization | | | | + + + + + | REFERENCE LAB | [address] | [place], [place] | [phone] | | [facility] | [facility] | [address] | | + + + + + [...] + | [facility] | [address] | [place] | [phone] | | [facility] | | [address] | | | - LABORATORY | | [...] | | | | | | | 4355-1595 Use NIGHT DOSE for | | | | | | | doses scheduled: HS, 3AM, | | | | | | | Nighttime 9344-3328, | | | | | | + [...]
--- OUTSIDE RECORDS SUMMARY | ~2020-02-15 | XMS | Encounter Summary ---
Demographics + + + | Address | [address] | | | [place] [address] | + + + | Home Phone [...] Samantha Ramos | ECON | [address] # | | | | | [place] | | | | | [address] | | + + + + + Care Team Providers + +------+ + | Care Back Tender Name | Role | Phone | [...] | 2019 | | Center at [facility] [address] | [address] | Appointment | | | | Zee Nguyen | [facility], | | | | | Mailcode: [place] | [place] [address] | | | | | for Health and | [phone] | | | | | [facility] 2 | | | | | | [place], [place] | | | | | | [address] | | | | | | [phone] | | | +--------+ + + + [...]
--- OUTSIDE RECORDS SUMMARY | ~2020-02-15 | XMS | Encounter Summary ---
Demographics + + + | Address | [address] | | | [place] [address] | + + + | Home Phone | | + + + | Preferred Language | Unknown | + + + | Marital Status | Single | + + + | Adventist Affiliation | Unknown | + + + [...] [id number] | | | | | [address] | | + + + + + Care Team Providers + +------+ + | Care Dirt Supervisor Name | Role | Phone | [...] | Services | ogy | Diabetic | [facility], | Greg Bernardo MD | | | Required | | gastroparesi | Vicky, | [address] | | | | | s (HCC) | [facility] [address] [place] | | | | | Malnutrition | [place], [place] | [address] | | | | | , | [address] [place] | [place], [place] | | | | | unspecified | [place], [place] | [address] | | | | | type (HCC) | [address] | Phone: | | | | | Weight loss | Phone: | [phone] | | | | | | [phone] | Fax: | | | | | | Fax: | [phone] | | | | | | [phone] | | +--------+ + + + + [...] | [address] [place] | [place], [place] [address] | (HCC) (Primary Dx); | | | | [address] [place], [place] | [place], [place] | Diabetic | | | | [address] | [address] | gastroparesis (HCC); | | | | [phone] | | Weight loss | +--------+ + [...] 2020 | Office | | [address] [facility] | | | | Visit | | [address] [place] | | | | | | [address] | | | | | | | [...]
--- OUTSIDE RECORDS SUMMARY | ~2020-02-15 | XMS | Encounter Summary ---
Demographics + + + | Address | [address] | | | [place] [address] | + + + | Home Phone [...] Author + + + | Author | [facility] | + + + | Organization | [facility] | + + + | Address | Unknown | + + + | Phone | Unavailable | + + + Support + + + + + | Name | Relationship | Address | Phone | + + + + + | Samantha Ramos | ECON | [address] # | | | | | [place] | | | | | [address] | | + + + + + Care Team Providers + +------+ + | Care Grinder Set Up Operator Centerless Name | Role | Phone | + +------+ + | Neri Mojica MD | PCP | | + +------+ + Encounter Details +--------+ + + + + | Date | Type | Department | Care Team | Description | +--------+ + + + + | 08/24/ | Document-Sc | UNKNOWN DEPARTMENT | Other, Faculty | | | 2012 | anned | [address] [facility] | [phone] | | | | | [address] | | | | | | [place], [place] | | | | | | [address] | | | +--------+ + + + [...]
--- OUTSIDE RECORDS SUMMARY | ~2020-02-15 | XMS | Encounter Summary ---
Demographics + + + | Address | [address] | | | [place] [address] | + + + | Home Phone [...] Samantha Ramos | ECON | [address] # | | | | | [place] | | | | | [address] | | + + + + + Care Team Providers + +------+ + | Care Ssis Ssrs Developer Name | Role | Phone | [...] | | | | | | | [place] [facility] | | | | | | | Health and | | | | | | | Healing, | | | | | | | Building [address] | | | | | | | [place], [place] | | | | | | | [address] | | | | | | | Phone: | | | | | | | [phone] | | | | | | | Fax: | | | | | | | [phone] | + +--------+ + + + + Encounter Details +--------+ + + + + | Date | Type | Department | Care Team | Description | +--------+ + + + + | 01/24/ | Telephone-S | Digestive Health | Beth Mondragon, | Follow-up visit | | 2020 | cheduled | Center at [facility] [address] | ANP [address] [facility] | | | | | Zee Nguyen | [address] | | | | | Mailcode: [place] | [place], [place] | | | | | [facility] and | [address] | | | | | [facility] 2 | [phone] | | | | | [place], [place] | | | | | | [address] | | | | | | [phone] | | | +--------+ + + + [...] 07/2019 PDMP review reveals pt still taking [place] 10 mg tabs, rx #112/28 days 1:33 pm: called [phone] and left VM with clinic phone number. 1:38 pm: called [phone] and left VM w/ phone number. 1:41 pm received message from credit front office developer that patient wished to cancel appointment today 2/ 2 illness. It will be rescheduled at his convenience. IDRIS Camilo Foregut/ HIPEC SUPERVISOR METAL FURNITURE FABRICATION [facility] Division of GI and General Surgery documented in this encounter Plan of Treatment Not on filedocumented as of this encounter Visit Diagnoses + + | Diagnosis | + + | Diabetic gastroparesis associated with type 1 diabetes mellitus (HCC) - Primary | + + documented in this encounter"
--- OUTSIDE RECORDS SUMMARY | ~2020-02-15 | XMS | Encounter Summary ---
Demographics + + + | Address | [address] | | | [place] [address] | + + + | Home Phone [...] Samantha Ramos | ECON | [address] # | | | | | [place] | | | | | [address] | | + + + + + Care Team Providers + +------+ + | Care Solar Designer/Installer Name | Role | Phone | + +------+ + | Erich Yates PA-C | PCP | | + +------+ + Encounter Details +--------+ + + + + | Date | Type | Department | Care Team | Description | +--------+ + + + + | 01/05/ | Outside | UNKNOWN DEPARTMENT | Other, Faculty | | | 2020 | Records | [address] [facility] | [phone] | | | | | [address] | | | | | | [place], [place] | | | | | | [address] | | | +--------+ + + + [...]
--- OUTSIDE RECORDS SUMMARY | ~2020-02-15 | XMS | Encounter Summary ---
Demographics + + + | Address | [address] | | | [place] [address] | + + + | Home Phone [...] Samantha Ramos | ECON | [address] # | | | | | [place] | | | | | [address] | | + + + + + Care Team Providers + +------+ + | Care Continuous Still Operator Name | Role | Phone | [...] | | | | Mailcode: Center | [place], [place] | | | | | for Health and | [address] | | | | | [facility] 2 | [phone] | | | | | [place], [place] | | | | | | [address] | | | | | | [phone] | | | +--------+ + + + [...] - | [address] | [place], [place] | [phone] | | [place]UN | | | | [...] [address] | [place] | [phone] | | EUN | | | | [...] + + | [facility] - | [address] | [place] | [phone] | | [place] | | | | [...] + + | [facility] - | [address] | [place], [place] | [phone] | | [place] | | | | + + + + + documented in this encounter Visit Diagnoses + + | Diagnosis | + + | Chronic diarrhea Diarrhea | + + documented in this encounter"
--- OUTSIDE RECORDS SUMMARY | ~2020-02-15 | XMS | Encounter Summary ---
Demographics + + + | Address | [address] | | | [place] [address] | + + + | Home Phone [...] [id number] | | | | | [address] | | + + + + + Care Team Providers + +------+ + | Care Visual Arts Teacher Name | Role | Phone | [...] | | | | | [address] | [place] | | | | | [place] | [address] | | | | | [address] | | | | | | [phone] | | | +--------+ + + + [...] +----+---+ + + | | 2 | Balm | | | | 0 | 43-degrees | | | | 4 | | | | | 8 | | | +----+---+ + + | | 2 | First | | | | 0 | Inc/Proc St | | | | 5 | | | | | 4 | | | +----+---+ + + | | 2 | Balm off | | | | 1 | [...] 2019 | Office | | [address] [facility] | | | | Visit | | [address] [place], [place] | | | | | | [address] | | | | | | | [...] - 09/19/2018 8:55 PM PST Anesthesia Airway Vxksrrkwg69/25/2018 | | 20:40Preprocedure check: patient identified, suction, [...] 18 8:39 | | | | | 2039, Anesthesia Intra-op | | PM PST | [...]
--- OUTSIDE RECORDS SUMMARY | ~2020-02-15 | XMS | Encounter Summary ---
Demographics + + + | Address | [address] | | | [place] [address] | + + + | Home Phone [...] [place] | | | | | [address] | | + + + + + Care Team Providers + +------+ + | Care Chalk Cutter Name | Role | Phone | [...] + + | 09/29/ | Office | [facility] | Tc Mora | Nephrolithiasis | | 2019 | Visit | [address] | MD [address] | (Primary Dx); | | | | [place] | [place] | Hyperkalemia; Stage | | | | [address] | [address] | 3 chronic kidney | | | | [phone] | | disease (HCC) | +--------+---------+ + [...] STENT PLACEMENT; Surgeon: Tc Mora MD; Location: [facility] MAIN [place] Family History: Family History Problem [...] pH, Urine 6.0 5.0 - 8.0 Specific [place] 1.012 1.001 - 1.030 Protein, Urine 100 [...] ECGs available Confirmed by KARO FLORES, CRISTINE ([id number]) on 09/21/2018 6:31:13 AM Lab Results Component [...] have not thoroughly proofread this note, and heart nurse errors are very likely to occur. CC: VIKI Anand documented in this encounter Plan of Treatment +--------+ + + + + | Date | Type | Specialty | Care Team | Description | +--------+ + + + + | 03/03/ | Virtual | Nephrology | Winston Whitman MD | | | 2020 | Office | | [address] [facility] | | | | Visit | | [facility] | | | | | | [address] | | | | | | | [...]
--- OUTSIDE RECORDS SUMMARY | ~2020-02-15 | XMS | Encounter Summary ---
Demographics + + + | Address | [address] | | | [place] [address] | + + + | Home Phone [...] | Samantha Ramos | ECON | [address] # | | | | | [place] | | | | | [address] | | + + + + + Care Team Providers + +------+ + | Care Director Presales Name | Role | Phone | + [...] [address] | | | | | [place], [place] | [place], [place] | | | | | [address] | [address] | | | | | [phone] | [phone] | | | | | | | [...] | | N, | Test performed by [facility] | | | | | URINE-[facility] | [facility] | | | | | M | [facility]. | | | | + [...] + + + | [facility] | [address] | [place] [address] | | | LABORATORY | | | | + + + + + documented in this encounter Visit Diagnoses Not on filedocumented in this encounter"
--- OUTSIDE RECORDS SUMMARY | ~2020-02-15 | XMS | Encounter Summary ---
Demographics + + + | Address | [address] | | | [place] [address] | + + + | Home Phone [...] | Samantha Ramos | ECON | [address] # | | | | | [place], [place] | | | | | [address] | | + + + + + Care Team Providers + +------+ + | Care Administrative Staff Supervisor Name | Role | Phone | [...] as of this encounter Progress Notes Interface, V Belt Inspector In - 04/25/2005 12:43 AM PDT [id number] 09/30/2004 09/30/2003 [id number] NAHOMY Durbin [facility] [address] [place], [place] [address] or September 30, 2004 Neri Mojica M.D. [address] [place] [address] RE: BROOKS MARQUEZ II MR #: [id number] Dear Dr. Mojica: Diagnoses: 1. Type 1 diabetes. 2. Currently poor control. 3. Poor compliance. I reviewed Brooks Ogden in our Pediatric Endocrinology Clinic for the first time today. Alin is a 13-year 44-ljfvf-cqa boy who was diagnosed with type 1 diabetes in April 2002, presenting with weight loss, polyuria, and polydipsia. Since Brooks was diagnosed, he has been mainly under your care for his diabetes, although he has been seen once at [facility]. His control has generally been very poor, and he has had 3 episodes of diabetic ketoacidosis, the last being in July 2004. At this episode, he was admitted to [facility] with moderate DKA, initial bicarbonate of [...] his new step-father and brother in the [facility]. Though there is strong family history [...] Normal sensation. Summary: Alin is a 13-year 05-knaew-ocm boy with very poor diabetes control, secondary [...] or concerns. Yours sincerely, Ashanti Roque M.D. Traffic Lieutenant of Pediatric Endocrinology / [id number] / [id number] / [id number] / documented i n this encounter Plan of Treatment Not on filedocumented as of this encounter Visit Diagnoses Not on filedocumented in this encounter"
--- OUTSIDE RECORDS SUMMARY | ~2020-02-15 | XMS | Encounter Summary ---
Demographics + + + | Address | [address] | | | [place] [address] | + + + | Home Phone [...] + + | Author | [facility] | | | and [place] | + + + | Organization | [facility] | | | [...] [place] | | | | | [address] | | + + + + + Care Team Providers + +------+ + | Care Payroll Clerk Name | Role | Phone | + +------+ + | Erich Yates | PCP | | + +------+ + Encounter Details +--------+ + + + + | Date | Type | Department | Care Team | Description | +--------+ + + + + | 05/15/ | Abstract | [facility] | Divya, | | | 2017 | | GASTROENTEROLOGY | MD [address] | | | | | [address] [facility] | [place]. | | | | | [address] [place], [place] | [place] [address] | | | | | [address] | | | | | | [phone] | | | +--------+ + + + [...] | | | Visit | | [address] [facility] [place] | | | | | | [address] | | | | | | | | +--------+ + + + + documented as of this encounter Visit Diagnoses Not on filedocumented in this encounter"
--- OUTSIDE RECORDS SUMMARY | ~2020-02-15 | XMS | Encounter Summary ---
Demographics + + + | Address | [address] | | | [place] [address] | + + + | Home Phone [...] Samantha Ramos | ECON | [address] # | | | | | [place] | | | | | [address] | | + + + + + Care Team Providers + +------+ + | Care Photography Sales Associate Name | Role | Phone | [...] | | | | [facility] | [place], [place] | | | | | [address] | [address] | | | | | [place] | [phone] | | | | | [place], [place] | | | | | | [address] | | | | | | [phone] | | | +--------+ + + + [...] - [facility] | [address] | [place], [place] | | | JUNIOR POINT OF CARE | [address] | [address] | | | TESTS | | | | + + + + + | [facility] | [address] | [place], [place] | | | TESTS | [facility] | [address] | | + + + + + documented in this encounter Visit Diagnoses Not on filedocumented in this encounter"
--- OUTSIDE RECORDS SUMMARY | ~2020-02-15 | XMS | Encounter Summary ---
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
--- OUTSIDE RECORDS SUMMARY | ~2020-02-15 | XMS | Encounter Summary ---
Demographics + + + | Address | [address] | | | [place] [address] | + + + | Home Phone [...] Samantha Ramos | ECON | [address] # | | | | | [place] | | | | | [address] | | + + + + + Care Team Providers + +------+ + | Care Tea Tree Farm Worker Name | Role | Phone | [...] | Only | [facility] [address] | SERVICE ORDER DISPATCHER [address] | | | | | [address] | [address] | | | | | Mailcode: [address] | [place] [address] | | | | | [facility] | [phone] | | | | | [place], [place] | | | | | | [address] | | | | | | [phone] | | | +--------+ + + + [...]
--- OUTSIDE RECORDS SUMMARY | ~2020-02-15 | XMS | Encounter Summary ---
Demographics + + + | Address | [address] | | | [place] [address] | + + + | Home Phone [...] Samantha Ramos | ECON | [address] # | | | | | [place] | | | | | [address] | | + + + + + Care Team Providers + +------+ + | Care Senior Sql Server Database Developer Name | Role | Phone | [...] | | 2020 | | Center at [facility] 3485 | [address] | | | | | [address] [place] | [place], | | | | | Mailcode: [place] | [place] [address] | | | | | for Health and | [phone] | | | | | [facility], [facility] 2 | | | | | | [place], [place] | | | | | | [address] | | | | | | [phone] | | | +--------+ + + + [...]
--- OUTSIDE RECORDS SUMMARY | ~2020-02-15 | XMS | Encounter Summary ---
Demographics + + + | Address | [address] | | | [place] [address] | + + + | Home Phone [...] Samantha Ramos | ECON | [address] # | | | | | [place] | | | | | [address] | | + + + + + Care Team Providers + +------+ + | Care Siebel Administrator Name | Role | Phone | + [...] [address] | | | | | [place], [place] | [place], [place] | | | | | [address] | [address] | | | | | [phone] | [phone] | | | | | | | [...] | | N, | Test performed by [place] | | | | | URINE-[facility] | [facility] | | | | | M | [facility]. | | | | + [...] + + + | [facility] | [address] | [place] [address] | | | LABORATORY | | | | + + + + + documented in this encounter Visit Diagnoses Not on filedocumented in this encounter"
--- OUTSIDE RECORDS SUMMARY | ~2020-02-15 | XMS | Encounter Summary ---
Demographics + + + | Address | [address] | | | [place] [address] | + + + | Home Phone [...] Samantha Ramos | ECON | [address] # | | | | | [place] | | | | | [address] | | + + + + + Care Team Providers + +------+ + | Care Store Clerk Checker Name | Role | Phone [...] evaluation | | 2020 | cheduled | [facility] at | | | | | | [facility] | | | | | | [address] | | | | | | Mail Code: OC8PM | | | | | | [facility] | | | | | | and Healing, | | | | | | Building [address] | | | | | | [place], [place] | | | | | | [address] | | | | | | [phone] | | | +--------+ + + + [...] INSTRUCTIONS Eating/Drinking Instructions: Follow instructions provided by [facility] Endoscopy. You should have received these instruction s by mail or email. If you have not received them, contact Endoscopy at [phone]. General Medications Instructions Oral iron: If you [...] Procedure check-in location: Day Stay Unit - [facility], 4th floor Room 4519 Procedure Check in [...] ch as Uber/Lyft), or public transportation. An Uber/Lyft/local truck driver does not count as the [...] it is after office hours, call the [facility] pipe smoking machine operator at [phone] and ask them to page the on-c all GI provider. Your surgical team will decide when you are medically ready to go home. documented in this encounter Plan of Treatment Not on filedocumented as of this encounter Visit Diagnoses Not on filedocumented in this encounter"
--- OUTSIDE RECORDS SUMMARY | ~2020-02-15 | XMS | Encounter Summary ---
Demographics + + + | Address | [address] | | | [place] [address] | + + + | Home Phone | | + + + | Preferred Language | Unknown | + + + | Marital Status | Single | + + + | Taoism Affiliation | Unknown | + + + | Race | Unknown | + + + | Ethnic Group | Unknown | + + + Author + + + | Author | [facility] | | | and [place] | + + + | Organization | [facility] | | | [...] [place] | | | | | [address] | | + + + + + Care Team Providers + +------+ + | Care Document Control Clerk Name | Role | Phone | + +------+ + | Erich Yates | PCP | | + +------+ + Encounter Details +--------+ + + + + | Date | Type | Department | Care Team | Description | +--------+ + + + + | 03/16/ | Orders Only | [facility] | Winston Whitman MD | | | 2018 | | NEPHROLOGY [place] | [address] | | | | | [address] | [address] [place], [place] | | | | | [address] [place], [place] | [address] | | | | | [address] | | | | | | [phone] | | | +--------+ + + + [...] 2019 | Office | | [address] [facility] | | | | Visit | | 160 [place] | | | | | | [address] | | | | | | | [...] | | | LAB | | | [place] | | | | | + + [...]
--- OUTSIDE RECORDS SUMMARY | ~2020-02-15 | XMS | Encounter Summary ---
Demographics + + + | Address | [address] | | | [place] [address] | + + + | Home Phone [...] Samantha Ramos | ECON | [address] # | | | | | [place] | | | | | [address] | | + + + + + Care Team Providers + +------+ + | Care Regrinder Name | Role | Phone | + [...]
--- OUTSIDE RECORDS SUMMARY | ~2020-02-15 | XMS | Encounter Summary ---
Demographics + + + | Address | [address] | | | [place] [address] | + + + | Home Phone [...] [place] | | | | | [address] | | + + + + + Care Team Providers + +------+ + | Care External Relations Director Name | Role | Phone | [...] | 03/13/ | Telephone | [facility] [place] | [facility], | Referral | | 2019 | | GASTROENTEROLOGY | DANA Perry [address] | | | | | [address] | [place], [address] | | | | | [address] [place], [place] | [place], [place] | | | | | [address] | [address] | | | | | [phone] | | | +--------+ + + + [...] 2019 | Office | | [address] [facility] | | | | Visit | | [address] [place] | | | | | | [address] | | | | | | | | +--------+ + + + + documented as of this encounter Visit Diagnoses Not on filedocumented in this encounter"
--- OUTSIDE RECORDS SUMMARY | ~2020-02-15 | XMS | Encounter Summary ---
Demographics + + + | Address | [address] | | | [place] [address] | + + + | Home Phone | | + + + | Preferred Language | Unknown | + + + | Marital Status | Single | + + + | Catholic Affiliation | NON | + + + [...] Samantha Ramos | ECON | [address] # | | | | | [place], [place] | | | | | [address] | | + + + + + Care Team Providers + +------+ + | Care Director Patient Accounting Name | Role | Phone | + [...]
--- OUTSIDE RECORDS SUMMARY | ~2020-02-15 | XMS | Encounter Summary ---
Demographics + + + | Address | [address] | | | [place] [address] | + + + | Home Phone [...] [place] | | | | | [address] | | + + + + + Care Team Providers + +------+ + | Care Public Health Specialist Name | Role | Phone | + +------+ + | Erich Yates | PCP | | + +------+ + Encounter Details +--------+ + + + + | Date | Type | Department | Care Team | Description | +--------+ + + + + | 03/16/ | Orders Only | [facility] | Conversion | | | 2018 | | NEPHROLOGY [place] | Transaction, | | | | | [address] | Provider Unknown | | | | | [address] [place], [place] | | | | | | [address] | (Fax) | | | | | [phone] | | | +--------+ + + + [...] 2019 | Office | | [address] [facility] | | | | Visit | | [address] [place] | | | | | | [address] | | | | | | | [...]
--- OUTSIDE RECORDS SUMMARY | ~2020-02-15 | XMS | Encounter Summary ---
Demographics + + + | Address | [address] | | | [place] [address] | + + + | Home Phone | | + + + | Preferred Language | Unknown | + + + | Marital Status | Single | + + + | Roman Catholic Affiliation | NON | + + [...] Samantha Ramos | ECON | [address] # | | | | | [place] | | | | | [address] | | + + + + + Care Team Providers + +------+ + | Care Air Traffic Control Equipment Repairer Name | Role | Phone | [...] | | | type) | CLINIC | [facility] | | | | | diabetes | [address] | Rd | | | | | mellitus | BUILDING | [place], [place] | | | | | without | [address] | [address] | | | | | mention of | [address] | Phone: | | | | | complication | [place], | [phone] | | | | | , not stated | [place] [address] | Fax: | | | | | as | Phone: | [phone] | | | | | uncontrolled | [phone] | | | | | | | Fax: | | | | | | | [phone] | | +--------+ + + + + [...] (Primary Dx) | | | | Center [facility] | [facility] | | | | | [address] | [place], [place] | | | | | [address] | [address] | | | | | Physician's | [phone] | | | | | Pavilion[address] | | | | | | [place], [place] | | | | | | [address] | | | | | | [phone] | | | +--------+---------+ + + + [...] week a nd fax to me on [phone] or call/email earlier if blood sugars running consistently low . My email address is [email or web address] 2. Take 1 unit insulin for every [...] 1 week and fax to me on [phone]- or call/email earlier if blood sarabia gars running consistently low. My email address is [email or web address] 2. Take 1 unit insulin for every [...] VERDE | [address] | [place], [place] | | | [place] POINT OF CARE | [address] | [address] | | | TESTS | | | | + + + + + | [facility] | [address] | [place], [place] | | | TESTS | [address] | [address] | | + + + + + documented in this encounter Visit Diagnoses + + | Diagnosis | + + | Type I (juvenile type) diabetes mellitus without mention of complication, not stated | | as uncontrolled - Primary | + + documented in this encounter
--- OUTSIDE RECORDS SUMMARY | ~2020-02-15 | XMS | Encounter Summary ---
Demographics + + + | Address | [address] | | | [place] [address] | + + + | Home Phone [...] Samantha Ramos | ECON | [address] # | | | | | [place] | | | | | [address] | | + + + + + Care Team Providers + +------+ + | Care Industrial Furnace Fabricator Name | Role | Phone | + [...] Rd | | | | | [facility] | [place] [address] | | | | | [address] | | | | | | [address] | | | | | | [place], [place] | | | | | | [address] | | | | | | [phone] | | | +--------+ + + + [...]
--- OUTSIDE RECORDS SUMMARY | ~2020-02-15 | XMS | Encounter Summary ---
Demographics + + + | Address | [address] | | | [place] [address] | + + + | Home Phone [...] [place] | | | | | [address] | | + + + + + Care Team Providers + +------+ + | Care Furniture Manager Name | Role | Phone | + +------+ + | Erich Yates | PCP | | + +------+ + Encounter Details +--------+ + + + + | Date | Type | Department | Care Team | Description | +--------+ + + + + | 03/16/ | Orders Only | [facility] | Winston Whitman MD | | | 2018 | | NEPHROLOGY [place] | [address] | | | | | [address] | [address] [place], [place] | | | | | 160 [place], [place] | [address] | | | | | [address] | | | | | | [phone] | | | +--------+ + + + [...] 2019 | Office | | [address] [facility] | | | | Visit | | 160 [place] | | | | | | [address] | | | | | | | [...] | | | LAB | | | [place] | | | | | + [...]
--- OUTSIDE RECORDS SUMMARY | ~2020-02-15 | XMS | Encounter Summary ---
Demographics + + + | Address | [address] | | | [place] [address] | + + + | Home Phone [...] Samantha Ramos | ECON | [address] # | | | | | [place] | | | | | [address] | | + + + + + Care Team Providers + +------+ + | Care Farm Tractor Operator Name | Role | Phone | [...] | | | | | [place] | [facility] [address] | | | | | | CLINIC | [place] | | | | | | [address] | [address] | | | | | | BUILDING | [place], [place] | | | | | | [address] | [address] | | | | | | [address] | Phone: | | | | | | [place], | [phone] | | | | | | [place] [address] | Fax: | | | | | | Phone: | [phone] | | | | | | [phone] | | | | | | | Fax: | | | | | | | [phone] | | +--------+--------+ + + + + [...] | | | | [facility] | [place], [place] | | | | | [address] | [address] | | | | | [place] | [phone] | | | | | [place], [place] | | | | | | [address] | | | | | | [phone] | | | +--------+ + + + [...] as of this encounter Progress Notes Interface, Rehabilitation Attendant In - 12/15/2006 6:28 AM JOHNNY [id number] NAHOMY Durbin [id number] Clinic Date: 11/02/2006 Clinic: Pediatric Endocrinology Problem [...] regimen as necessary. Ashanti Roque M.D. / [id number] / [id number] / [id number] / [id number] cc: Neri Mojica M.D. [address] [facility] [address] [place], [place] MedRecNo: [id number], Account: [id number], DocSeq: [id number] Addendum December 09 2006 Alin's random urine [...] VERDE | [address] | [place], [place] | | | [place] POINT OF CARE | [facility] | [address] | | | TESTS | | | | + + + + + | [facility] | [address] | [place], [place] | | | TESTS | [facility] | [address] | | + + + + + documented in this encounter Visit Diagnoses Not on filedocumented in this encounter"
--- OUTSIDE RECORDS SUMMARY | ~2020-02-15 | XMS | Encounter Summary ---
Demographics + + + | Address | [address] | | | [place] [address] | + + + | Home Phone | | + + + | Preferred Language | Unknown | + + + | Marital Status | Single | + + + | Synagogue Affiliation | Unknown | + + + | Race | Unknown | + + + | Ethnic Group | Unknown | + + + Author + + + | Author | [facility] | | | and [place] | + + + | Organization | [facility] | | | [...] [place] | | | | | [address] | | + + + + + Care Team Providers + +------+ + | Care Wildlife Protector Name | Role | Phone | + [...] | 03/13/ | Telephone | [facility] [place] | [facility], | Referral | | 2019 | | GASTROENTEROLOGY | DANA [address] | | | | | [address] | [place], [address] | | | | | [address] [place], [place] | [place], [place] | | | | | [address] | [address] | | | | | [phone] | | | +--------+ + + + [...] 2019 | Office | | [facility] | | | | Visit | | [address] [place] | | | | | | [address] | | | | | | | | +--------+ + + + + documented as of this encounter Visit Diagnoses Not on filedocumented in this encounter"
--- OUTSIDE RECORDS SUMMARY | ~2020-02-15 | XMS | Encounter Summary ---
Demographics + + + | Address | [address] | | | [place] [address] | + + + | Home Phone [...] + + + | Author | [facility] | + + + | Organization | [facility] | + + + | Address | Unknown | + + + | Phone | Unavailable | + + + Support + + + + + | Name | Relationship | Address | Phone | + + + + + | Samantha Ramos | ECON | [address] # | | | | | [place] | | | | | [address] | | + + + + + Care Team Providers + +------+ + | Care Chief Console Operator Name | Role | Phone | [...] | | 2019 | | Center at [facility] [address] | [address] | Appointment | | | | Z[address] | [facility], | | | | | Mailcode: [place] | [place] [address] | | | | | for Health and | [phone] | | | | | [facility] 2 | | | | | | [place], [place] | | | | | | [address] | | | | | | [phone] | | | +--------+ + + + [...]
--- OUTSIDE RECORDS SUMMARY | ~2020-02-15 | XMS | Encounter Summary ---
Demographics + + + | Address | [address] | | | [place] [address] | + + + | Home Phone [...] Samantha Ramos | ECON | [address] # | | | | | [place] | | | | | [address] | | + + + + + Care Team Providers + +------+ + | Care Lock Installer Name | Role | Phone | [...] [address] | | | | | [place], [place] | [place], [place] | | | | | [address] | [address] | | | | | [phone] | [phone] | | | | | | | [...] + + + + + | [facility] | [address] | [place] [address] | | | PATHOLOGY | [address] | | | + + + + + | [facility] | [address] | [place] [address] | | | PATHOLOGY | [address] | | | + + + + + documented in this encounter Visit Diagnoses Not on filedocumented in this encounter"
--- OUTSIDE RECORDS SUMMARY | ~2020-02-15 | XMS | Encounter Summary ---
Demographics + + + | Address | [address] | | | [place] [address] | + + + | Home Phone [...] [place] | | | | | [address] | | + + + + + Care Team Providers + +------+ + | Care Physician Extender Name | Role | Phone | + [...] [place] | | | | | | [address] | (Fax) | | | | | [phone] | | | +--------+ + + + [...] 2019 | Office | | [address] [facility] | | | | Visit | | [address] [place] | | | | | | [address] | | | | | | | [...]
--- OUTSIDE RECORDS SUMMARY | ~2020-02-15 | XMS | Encounter Summary ---
Demographics + + + | Address | [address] | | | [place] [address] | + + + | Home Phone | | + + + | Preferred Language | Unknown | + + + | Marital Status | Single | + + + | Mandaeism Affiliation | Unknown | + + + [...] [place] | | | | | [address] | | + + + + + Care Team Providers + +------+ + | Care Egg Separator Name | Role | Phone | + +------+ + | Erich Yates | PCP | | + +------+ + Encounter Details +--------+ + + + + | Date | Type | Department | Care Team | Description | +--------+ + + + + | 01/11/ | Orders Only | [facility] | Winston Whitman MD | | | 2019 | | NEPRHOLOGY [place] | [address] | | | | | [address] | [address] [place], [place] | | | | | [address] [place], [place] | [address] | | | | | [address] | | | | | | [phone] | | | +--------+ + + + [...] 2020 | Office | | [address] [facility] | | | | Visit | | [address] [place] | | | | | | [address] | | | | | | | [...]
--- OUTSIDE RECORDS SUMMARY | ~2020-02-15 | XMS | Encounter Summary ---
Demographics + + + | Address | [address] | | | [place] [address] | + + + | Home Phone [...] Samantha Ramos | ECON | [address] # | | | | | [place] | | | | | [address] | | + + + + + Care Team Providers + +------+ + | Care Cafeteria Assistant Name | Role | Phone | + +------+ + | Erich Yates PA-C | PCP | | + +------+ + Reason for Visit + + + | Reason | Comments | + + + | Chart Review | | + + + Encounter Details +--------+ + + + + | Date | Type | Department | Care Team | Description | +--------+ + + + + | 01/24/ | Telephone | [facility]ive [facility] | Beth Mondragon, | Chart Review | | 2020 | | Center at [facility] [address] | AN[address] | | | | | [address] | [address] | | | | | Mailcode: Center | [place], [place] | | | | | for Health and | [address] | | | | | [facility] 2 | [phone] | | | | | [place], [place] | | | | | | [address] | | | | | | [phone] | | | +--------+ + + + [...]
--- OUTSIDE RECORDS SUMMARY | ~2020-02-15 | XMS | Clinical Summary ---
Demographics + + + | Address | [address] | | | [place] [address] | + + + | Home Phone [...] [place] | | | | | [address] | | + + + + + Care Team Providers + +------+ + | Care Painter Mirror Name | Role | Phone | + [...] 2020 | Office | | [address] [facility] | | | | Visit | | [address] [place] | | | | | | [address] | | | | | | | [...] Right: | JOYCE | | 07/14/ | [id number] | | - [id number]: | | | [employer] | | 2020 | / | | Qty: 1 on 09/19/2018 by | | Ureter | - JOYCE | | | /[id number] | | Tc Mora MD at | | | | | | 43 | | [facility] | | | | | | | | [facility] | | | | | | [...] [address] | [place] | [phone] | | [facility] | | [address] | | | - LABORATORY | | [...] + | [facility] [facility] | [address] | [place] | [phone] | | [facility] | | [address] | | | - LABORATORY | | [...] [address] | [place] | [phone] | | [facility] | | [address] | | | - LABORATORY | | [...] mL/min/1.73m2 | [facility] | | | TAJIK | RATE,ESTIMATED | | MEDICAL | | | | mL/min/1.14u4Qtdk than | | CENTER - | | [...] + | [facility] | [address] | [place] | [phone] | | [facility] | | [address] | | | - LABORATORY | | [...] | mL/min/1.73m2 | [facility] | | | TAJIK | RATE,ESTIMATED | | MEDICAL | | | | mL/min/1.92j9Oamt than | | CENTER - | | [...] [address] | [place] | [phone] | | [facility] | | [address] | | | - LABORATORY | | [...] [address] | [place] | [phone] | | [facility] | | [address] | | | - LABORATORY | | [...] + | [facility] | [address] | [place] | [phone] | | [facility] | | [address] | | | - LABORATORY | | [...] | mL/min/1.73m2 | [facility] | | | TAJIK | RATE,ESTIMATED | | MEDICAL | | | | mL/min/1.51v2Yozv than | | CENTER - | | [...] [address] | [place] | [phone] | | [facility] | | [address] | | | - LABORATORY | | [...] + | [facility] | [address] | [place] | [phone] | | [facility] | | [address] | | | - LABORATORY | | [...] | | | report was sent by [email or web address] with no significant discrepancy on | | [...] preliminary report was | | sent by [email or web address] with no significant discrepancyon 01/06/2020 4:25 PM.Dictated [...] | |A preliminary report was sent by [email or web address] with no significant discrepancy | |on 01/06/2020 [...] [address] | [place] | [phone] | | [facility] | | [address] | | | - LABORATORY | | [...] + | [facility] | [address] | [place] | [phone] | | [facility] | | [address] | | | - LABORATORY | | [...] ST. | [address] | [place], [place] | [phone] | | [facility] | | [address] | | | - LABORATORY | | [...] | [place] | | | [facility] | | [address] | | | - BLOOD BANK | [...] [address] | [place] | [phone] | | [facility] | | [address] | | | - LABORATORY | | [...] ST. | [address] | [place] | [phone] | | [facility] | | [address] | | | - LABORATORY | | [...] [address] | [place] | [phone] | | [facility] | | [address] | | | - LABORATORY | | [...] [address] | [place] | [phone] | | [facility] | | [address] | | | - LABORATORY | | [...] - 1.030 | [facility] | | | [place], | | | [facility] | | [...] [address] | [place] | [phone] | | [facility] | | [address] | | | - LABORATORY | | [...] + + | Performed at: 01 - [facility] [address], | [facility] | | [place], [place] [id number] Internal Audit Senior Manager: Jerome Agudelo MD, Phone: | MICHELLE - CIERRA | | [phone] | | + + + + + + + + | Performing | Address | City/State/Zipcode | Phone Number | | Organization | | | | + + + + + | [facility] | [address] | [place], [place] | [phone] | | [facility] | [place] | [address] | | + + + + + [...] [address] | [place] | [phone] | | [facility] | | [address] | | | - LABORATORY | | [...] + | [facility] | [address] | [place], [place] | [phone] | | [facility] | | [address] | | | - LABORATORY | | [...] | , Qual | | | [facility] | | | | [...] + | [facility] | [address] | [place] | [phone] | | [facility] | | [address] | | | - LABORATORY | | [...] + | [facility] | [address] | [place] | [phone] | | [facility] | | [address] | | | - LABORATORY | | [...] [address] | [place] | [phone] | | [facility] | | [address] | | | - LABORATORY | | [...] | | | | CRISTINE HUDDLESTON MD ([id number]) | | | | | | on [...] [address] | [place] | [phone] | | [facility] | | [address] | | | - LABORATORY | | [...] | | | | | | [employer] | | | | | [...] [address] | [place] | [phone] | | [facility] | | [address] | | | - LABORATORY | | [...] + | [facility] | [address] | [place] | [phone] | | [facility] | | [address] | | | - LABORATORY | | [...] ST. | [address] | [place] | [phone] | | [facility] | | [address] | | | - LABORATORY | | [...] + | [facility] | [address] | [place] | [phone] | | [facility] | | [address] | | | - LABORATORY | | [...] | [employer] | [employer] | [id number] | | [phone] | | Medica | | MEDICAID HMO | HEALTH | | 018-Pr | 1 | | id | | | MDCD | | esent | | | | | | [place] | | | | | | + +--------+ +--------+ +---------+--------+ | [employer] | [employer] | [id number] | | [phone] | | Medica | | MEDICAID HMO [...] [place] | | | 1 (Home) | [address] | + +--------+ +--------+ + + | Brooks Marquez | Person | Self | [birth year] | [address] | | | al/Fam | | 1990 | [phone] | [address] [place], [place] | | | [place] | | | 1 (Home) | [address] | + +--------+ +--------+ + + Advance Directives + + + + + | Type | Date Recorded | Patient | Explanation | | | | Bullet Slug Casting Machine Operator | | + + + + + | Power of | | | | | Operator Lights | | | | + + + [...]
--- OUTSIDE RECORDS SUMMARY | ~2020-02-15 | XMS | Encounter Summary ---
Demographics + + + | Address | [address] | | | [place] [address] | + + + | Home Phone [...] [place] | | | | | [address] | | + + + + + Care Team Providers + +------+ + | Care Sumatra Opener Name | Role | Phone | + [...] | | | [address] | [place] [address] | | | | | [place] [address] | | | | | | [phone] | | | +--------+ + + + [...] 2019 | Office | | [address] [facility] | | | | Visit | | [address] [place] | | | | | | [address] | | | | | | | [...]
--- OUTSIDE RECORDS SUMMARY | ~2020-02-15 | XMS | Encounter Summary ---
Demographics + + + | Address | [address] | | | [place] [address] | + + + | Home Phone [...] [place] | | | | | [address] | | + + + + + Care Team Providers + +------+ + | Care Slack Cooper Name | Role | Phone | + +------+ + | Erich Yates | PCP | | + +------+ + Encounter Details +--------+ + + + + | Date | Type | Department | Care Team | Description | +--------+ + + + + | 05/15/ | Orders Only | [facility] | Conversion | | | 2017 | | [place] | Transaction, | | | | | [address] | Provider Unknown | | | | | [address] [place], [place] | | | | | | [address] | (Fax) | | | | | [phone] | | | +--------+ + + + [...] 2019 | Office | | [address] [facility] | | | | Visit | | [address] [place], [place] | | | | | | [address] | | | | | | | [...] - 1.030 | EXTERNAL | | | [place], | | | LAB | | | [...]
--- OUTSIDE RECORDS SUMMARY | ~2020-02-15 | XMS | Encounter Summary ---
Demographics + + + | Address | [address] | | | [place] [address] | + + + | Home Phone | | + + + | Preferred Language | Unknown | + + + | Marital Status | Single | + + + | Congregational Affiliation | Unknown | + + + [...] [id number] | | | | | [address] | | + + + + + Care Team Providers + +------+ + | Care Product Coordinator Name | Role | Phone | [...] | Services | Diabetic | Willard | [place] | | | Required | | ulcer of | MD Bernadette | [address] | | | | | left foot | [address] | [place] | | | | | associated | [place] | [place], [place] | | | | | with type 1 | [place] | [address] | | | | | diabetes | [address] | Phone: | | | | | mellitus, | Phone: | [phone] | | | | | unspecified | [phone] | Fax: | | | | | part of | Fax: | [phone] | | | | | foot, | [phone] | | | | | | unspecified | | | | | | | ulcer stage | | | | | | | ([facility]) | | | | | | | [...] + + | 01/05/ | Hospital | [facility] | Erika Allison MD | Generalized weakness | | 2019 - | Encounter | [facility] | [address] | (Primary Dx); | | | | [address] [place] | [place] | Diabetic | | 01/09/ | | [place] [address] | [id number] | ketoacidosis without | | 2019 | | [phone] | | coma associated | | | | | Willard Aldrich | with type 1 diabetes | | | | | MD Bernadette [address] | mellitus (HCC); | | | | | [address] [place] | Acute renal failure | | | | | [place] [address] | superimposed on | | | | | [phone] | stage 3 chronic | | | | | | kidney disease, | | | | | | unspecified acute | | | | | | renal failure type | | | | | | ([facility]LY [facility]); Diabetic | | | | | | gastroparesis ([facility]); | | | | | | Diabetic [...] ulcer stage ([facility]) | +--------+ + + + + Social [...] might be differen t from the original. [place] HOSPITALIST DISCHARGE SUMMARY Pt. Name/Age/: Brooks [...] III, p/w Diarrhe a and AMS from [facility], found to have DKA and Acute [...] Medicine Why: hospital follow up Contact information: [address] [place] [id number] Discharge to home with family Home health ordered on discharge for PT, wound care, and medication management Condition: Patient being discharged with condition improved Diet: consistent carb diet Greater than 30 minutes were spent on discharge and coordination of post-hospital care. Electronically signed by: Willard Aldrich MD, 01/10/2020 10:55 AM [facility] Reference. This is NOT part of [...] this chart may have been created with [employer] voice recognition software. Occasi onal wrong-word or [...] sick with another illness Date Last Reviewed: 03/26/201619992129-5891 [employer]. [address] [place] [address], [place] [address]. All righ ts reserved. This information is [...] flavors available): 8 ounces per day ? [employer] Yogurt (many flavors available): 6 ounces per day AttachmentsThe following attachments cannot be sent through Care Everywhere.Adult, Pneumoni a (Guyanese)documented in this encounter Medications at Time of [...] might be differen t from the original. [facility] [place] HOSPITALIST PROGRESS NOTE Patient: Brooks Marquez : 1990: Age: 29 y.o. MedRec: [id number] PCP: Emmanuel Saavedra Admission date: 01/06/2020 Hospital [...] III, p/w Diarrhe a and AMS from [facility], found to have DKA and Acute [...] abx Willard Aldrich MD 01/09/2020 10:[address] [facility] Subjective CC Continued nausea without vomiting, has [...] mg 3 mg Oral Nightly PRN Erika Allsion MD metoclopramide (REGLAN) 5 mg/mL injection 5 [...] 84 TIBC 153* PCTSAT 55.0 FERRITIN 480* [id number] 1,885* FOLATE 2.0* Inflammatory markers Recent Labs [...] ABG No results for input(s): PHART, PO2ART, XUY2XXZ, HSN4WHH, BEART, G7TYQNWO in the last 168 h ours. Recent [...] Date/Time [facility] STAT instructions for COVID-19 tracking [[id number]] Collected: 01/07/201451 Order Status: Canceled Lab Status: No result Updated: 01/07/201451 Specimen: Tissue from Nasopharynx Coronavirus (COVID-19) NAAT [[id number]] (Normal) Collected: 01/07/20 144 Order Status: Completed Lab Status: Final result Updated: 01/07/201902 Specimen: Tissue from Nasopharynx SARS coronavirus 2 RNA Not Detected Comment: See Scanned Report [facility] STAT instructions for COVID-19 tracking [[id number]] Collected: 01/07/201446 Order Status: Completed Lab Status: Final result Updated: 01/07/201902 Specimen: Tissue from Nasopharynx [facility] COVID STAT instruction done Stool Pathogens, NAAT [[id number]] (Normal) Collected: 01/06/20428 Order Status: Completed Lab Status: Final result Updated: 01/06/20 0816 Specimen: Stool Campylobacter, NAAT Not Detected Salmonella, NAAT Not Detected Shigella NAAT Not Detected Vibrio, NAAT Not Detected Yersinia enterocolitica, NAAT Not Detected Shigatoxin 1 Not Detected Shigatoxin 2 Not Detected Clostridioides difficle NAAT reflex to Tox Ag [[id number]] Collected: 01/06/20428 Order Status: Completed Lab Status: Final result Updated: 01/06/20704 Specimen: Stool Narrative: The following orders were created for panel order Clostridioides difficle NAAT reflex to T ox Ag. Procedure Abnormality Status --------- ------ Clostridioides difficile...[[id number]] Final result Please view results for these tests on the individual orders. Clostridioides difficile NAAT Reflex [[id number]] Collected: 01/06/20428 Order Status: Completed Lab Status: Final result Updated: 01/06/20 07 Specimen: Stool C. difficile, Interp Negative Comment: No Toxigenic C. difficile detected. Consider other causes of Diarrhea. Repeat te sting should not be performed within 7 days. C. difficile, NAAT Negative Fecal leukocytes [[id number]] (Normal) Collected: 01/06/20427 Order Status: Completed Lab Status: Final result Updated: 01/06/20 0504 Specimen: Stool Lactoferrin, Qual Negative Culture, Urine [[id number]] (Normal) Collected: 01/06/20 0428 Order Status: Completed Lab Status: Final result Updated: 01/08/20 1209 Specimen: Urine, Unspecified Source Culture No Growth Culture, Blood [[id number]] Collected: 01/06/20 0339 Order Status: Completed Lab Status: Preliminary result Updated: 01/09/20 0441 Specimen: Peripheral Blood Culture No growth: Monitored continually by instrument for 5 days Culture, Blood [[id number]] Collected: 01/06/20 0329 Order Status: Completed Lab Status: Preliminary result Updated: 01/09/20 044 Specimen: Peripheral Blood Culture No growth: Monitored continually by instrument for 5 days Culture, MRSA [[id number]] (Normal) Collected: 01/06/20 0255 Order Status: Completed Lab Status: Final result Updated: 01/07/20 0742 Specimen: Body Fluid from Nares Culture Negative for MRSA by chromogenic agar method. Culture, MRSA [[id number]] Order Status: Canceled Lab Status: No result Specimen: Tissue from Nares Culture, MRSA [[id number]] Order Status: Canceled Lab Status: No result [...] this chart may have been created with Assurely voice recognition software. 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 [facility] Provider[facility] ondansetron (ZOFRAN ODT) 8 [...] performed and electronically signed by Kay Cleary, Grey Tender 01/08/2020 1:40 PM Reviewed by Mariama Saavedra, PharmD 01/08/2020 3:02 PM erry, Willard luna MD - 01/08/2020 7:52 AM PDTFormatting of this note might be different from the origi nal. [place] HOSPITALIST PROGRESS NOTE Patient: Brooks Marquez : 1990: Age: 29 y.o. MedRec: [id number] PCP: Emmanuel Saavedra Admission date: 01/06/2020 Hospital [...] III, p/w Diarrhe a and AMS from [facility], found to have DKA and Acute [...] inpatient Willard Aldrich MD 01/08/2020 7:[address] [facility] Subjective CC Some nausea, mid epigastric discomfort, [...] 84 TIBC 153* PCTSAT 55.0 FERRITIN 480* [id number] 1,885* FOLATE 2.0* Inflammatory markers Recent Labs [...] ABG No results for input(s): PHART, PO2ART, ZQI7WVH, FQE2TLZ, BEART, Z6JXICOD in the last 168 h ours. Recent [...] Date/Time [facility] STAT instructions for COVID-19 tracking [[id number]] Collected: 01/07/20 145 Order Status: Canceled Lab Status: No result Updated: 01/07/20 145 Specimen: Tissue from Nasopharynx Coronavirus (COVID-19) NAAT [[id number]] (Normal) Collected: 01/07/20 1447 Order Status: Completed Lab Status: Final result Updated: 01/07/20 1903 Specimen: Tissue from Nasopharynx SARS coronavirus 2 RNA Not Detected Comment: See Scanned Report [facility] STAT instructions for COVID-19 tracking [[id number]] Collected: 01/07/20 1447 Order Status: Completed Lab Status: Final result Updated: 01/07/20 1903 Specimen: Tissue from Nasopharynx [facility] STAT instruction done Stool Pathogens, NAAT [[id number]] (Normal) Collected: 01/06/20428 Order Status: Completed Lab Status: Final result Updated: 01/06/20 0816 Specimen: Stool Campylobacter, NAAT Not Detected Salmonella, NAAT Not Detected Shigella NAAT Not Detected Vibrio, NAAT Not Detected Yersinia enterocolitica, NAAT Not Detected Shigatoxin 1 Not Detected Shigatoxin 2 Not Detected Clostridioides difficle NAAT reflex to Tox Ag [[id number]] Collected: 01/06/20428 Order Status: Completed Lab Status: Final result Updated: 01/06/20 07 Specimen: Stool Narrative: The following orders were created for panel order Clostridioides difficle NAAT reflex to T ox Ag. Procedure Abnormality Status --------- ------ Clostridioides difficile...[[id number]] Final result Please view results for these tests on the individual orders. Clostridioides difficile NAAT Reflex [[id number]] Collected: 01/06/20428 Order Status: Completed Lab Status: Final result Updated: 01/06/20 0705 Specimen: Stool C. difficile, Interp Negative Comment: No Toxigenic C. difficile detected. Consider other causes of Diarrhea. Repeat te sting should not be performed within 7 days. C. difficile, NAAT Negative Fecal leukocytes [[id number]] (Normal) Collected: 01/06/20427 Order Status: Completed Lab Status: Final result Updated: 01/06/20 0504 Specimen: Stool Lactoferrin, Qual Negative Culture, Urine [[id number]] (Normal) Collected: 01/06/20427 Order Status: Completed Lab Status: Preliminary result Updated: 01/07/20 0832 Specimen: Urine, Unspecified Source Culture No growth to date Culture, Blood [[id number]] Collected: 01/06/20 0339 Order Status: Completed Lab Status: Preliminary result Updated: 01/06/20 1641 Specimen: Peripheral Blood Culture No growth: Monitored continually by instrument for 5 days Culture, Blood [[id number]] Collected: 01/06/20 0329 Order Status: Completed Lab Status: Preliminary result Updated: 01/06/20 1641 Specimen: Peripheral Blood Culture No growth: Monitored continually by instrument for 5 days Culture, MRSA [[id number]] (Normal) Collected: 01/06/20 0255 Order Status: Completed Lab Status: Final result Updated: 01/07/20 0742 Specimen: Body Fluid from Nares Culture Negative for MRSA by chromogenic agar method. Culture, MRSA [[id number]] Order Status: Canceled Lab Status: No result Specimen: Tissue from Nares Culture, MRSA [[id number]] Order Status: Canceled Lab Status: No result [...] A p reliminary report was sent by [employer] with no significant discrepancy on 01/06/2020 4 [...] this chart may have been created with Assurely voice recognition software. Occasi onal wrong-word or [...] Neumann MD - 01/07/2020 8:12 AM PDT [facility] Adult Hospitalist Progress Note Hospital Day: 1 Patient Summary: Briefly, 29-year-old male with an extensive past medical history most significant for type 1 diabetes mellitus complicated with gastroparesis right BKA and chronic left foot ulc er and CKD stage III who presented initially to [facility] with a chief complaint of di arrhea and confusion transferred to [facility] ICU for DKA and acute on [...] 2019 | Office | | [address] [facility] | | | | Visit | | [address] [place], [place] | | | | | | [id number] | | | | | | | [...] + | [facility] | [address] | [place] | [phone] | | [facility] | | [address] | | | - LABORATORY | | [...] [address] | [place] | [phone] | | [facility] | | [address] | | | - LABORATORY | | [...] ST. | [address] | [place], [place] | [phone] | | [facility] | | [address] | | | - LABORATORY | | [...] | Basophils | | K/uL | [facility] | | | | | | [...] + | [facility] | [address] | [place] | [phone] | | [facility] | | [address] | | | - LABORATORY | | [...] ST. | [address] | [place], [place] | [phone] | | [facility] | | [address] | | | - LABORATORY | | [...] 2.67 (H) | 0.70 - 1.30 | [facility] | | | | | mg/dL | [facility] | | | | | | MEDICAL | | | | | | CENTER - | | | | | | LABORATORY | | + + + + + + | eGFR if not | 28 (L)Comment: | >=60 | [facility] | | | | GLOMERULAR FILTRATION | mL/min/1.73m2 | [facility] | | | TUNISIAN | RATE,ESTIMATED | | MEDICAL | | | | mL/min/1.45c3Pasl than | | CENTER - | | [...] [address] | [place] | [phone] | | [facility] | | [address] | | | - LABORATORY | | [...] [address] | [place] | [phone] | | [facility] | | [address] | | | - LABORATORY | | [...] ST. | [address] | [place] | [phone] | | [facility] | | [address] | | | - LABORATORY | | [...] [address] | [place] | [phone] | | [facility] | | [address] | | | - LABORATORY | | [...] | | | POC | | | [facility] | | | | | | MEDICAL [...] + | [facility] | [address] | [place] | [phone] | | [facility] | | [address] | | | - LABORATORY | | [...] [address] | [place] | [phone] | | [facility] | | [address] | | | - LABORATORY | | | | + + + + + Magnesium (01/09/2020 4:40 AM PDT) + +-------+ + + + | Component | Value | Ref Range | Performed | Pathologist | | | | | At | Signature | + +-------+ + + + | Magnesium | 1.7 | 1.6 - 2.6 mg/dL | [facility] | | | | | | [facility] | | | | | | MEDICAL | | | | | | [place] - | | | | | | LABORATORY | | + +-------+ + + + + + | Specimen | + + | Blood | + + + + + + + | Performing | Address | City/State/Zipcode | Phone Number | | Organization | | | | + + + + + | [facility] | [address] | [place] | [phone] | | [facility] | | [address] | | | - LABORATORY | | [...] | mL/min/1.73m2 | [facility] | | | TUNISIAN | RATE,ESTIMATED | | MEDICAL | | | | mL/min/1.58c7Bknh than | | CENTER - | | [...] [address] | [place] | [phone] | | [facility] | | [address] | | | - LABORATORY | | [...] + | [facility] | [address] | [place] | [phone] | | [facility] | | [address] | | | - LABORATORY | | [...] | | | POC | | | [facility] | | | | | | MEDICAL [...] [address] | [place] | [phone] | | [facility] | | [address] | | | - LABORATORY | | [...] ST. | [address] | [place] | [phone] | | [facility] | | [address] | | | - LABORATORY | | [...] [address] | [place] | [phone] | | [facility] | | [address] | | | - LABORATORY | | [...] | | MEDICAL | | | | mL/min/1.97s0Ahsq than | | CENTER - | | [...] [address] | [place] | [phone] | | [facility] | | [address] | | | - LABORATORY | | [...] [address] | [place] | [phone] | | [facility] | | [address] | | | - LABORATORY | | [...] [address] | [place] | [phone] | | [facility] | | [address] | | | - LABORATORY | | [...] + | [facility] | [address] | [place] | [phone] | | [facility] | | [address] | | | - LABORATORY | | [...] + | [facility] | [address] | [place] | [phone] | | [facility] | | [address] | | | - LABORATORY | | [...] [address] | [place] | [phone] | | [facility] | | [address] | | | - LABORATORY | | [...] [address] | [place] | [phone] | | [facility] | | [address] | | | - LABORATORY | | [...] [address] | [place] | [phone] | | [facility] | | [address] | | | - LABORATORY | | [...] ST. | [address] | [place] | [phone] | | [facility] | | [address] | | | - LABORATORY | | [...] [address] | [place] | [phone] | | [facility] | | [address] | | | - LABORATORY | | [...] + | [facility] | [address] | [place] | [phone] | | [facility] | | [address] | | | - LABORATORY | | [...] ST. | [address] | [place], [place] | [phone] | | [facility] | | [address] | | | - LABORATORY | | [...] [address] | [place] | [phone] | | [facility] | | [address] | | | - LABORATORY | | [...] + | [facility] | [address] | [place] | [phone] | | [facility] | | [address] | | | - LABORATORY | | [...] | | GLOMERULAR FILTRATION | mL/min/1.73m2 | [facility] | | | TUNISIAN | RATE,ESTIMATED | | MEDICAL | | | | mL/min/1.68h8Dpfk than | | CENTER - | | [...] | | | | | mg/dL | [facility] | | | | | | MEDICAL | | | | | | CENTER - | | | | | | LABORATORY | | + + + + + + | Albumin | 2.4 (L) | 3.2 - 4.8 g/dL | [facility] | | | | | | [facility] | | | | | | MEDICAL [...] [address] | [place] | [phone] | | [facility] | | [address] | | | - LABORATORY | | [...] [address] | [place] | [phone] | | [facility] | | [address] | | | - LABORATORY | | [...] + | [facility] | [address] | [place] | [phone] | | [facility] | | [address] | | | - LABORATORY | | [...] + | [facility] | [address] | [place] | [phone] | | [facility] | | [address] | | | - LABORATORY | | [...] [address] | [place] | [phone] | | [facility] | | [address] | | | - LABORATORY | | [...] + | [facility] | [address] | [place], [place] | [phone] | | [facility] | | [address] | | | - LABORATORY | | [...] [address] | [place] | [phone] | | [facility] | | [address] | | | - LABORATORY | | [...] [address] | [place] | [phone] | | [facility] | | [address] | | | - LABORATORY | | [...] [address] | [place] | [phone] | | [facility] | | [address] | | | - LABORATORY | | [...] | | MEDICAL | | | | mL/min/1.77a4Ecsl than | | CENTER - | | [...] [address] | [place] | [phone] | | [facility] | | [address] | | | - LABORATORY | | [...] | + + + + + | [facility] | [address] | [place] | [phone] | | [facility] | | [address] | | | - LABORATORY | | [...] + | [facility] | [address] | [place] | [phone] | | [facility] | | [address] | | | - LABORATORY | | [...] + | [facility] | [address] | [place] | [phone] | | [facility] | | [address] | | | - LABORATORY | | [...] ST. | [address] | [place] | [phone] | | [facility] | | [address] | | | - LABORATORY | | [...] [address] | [place] | [phone] | | [facility] | | [address] | | | - LABORATORY | | [...] ST. | [address] | [place] | [phone] | | [facility] | | [address] | | | - LABORATORY | | [...] [address] | [place] | [phone] | | [facility] | | [address] | | | - LABORATORY | | [...] | | MEDICAL | | | | mL/min/1.32u1Ojzm than | | CENTER - | | [...] + | [facility] | [address] | [place] | [phone] | | [facility] | | [address] | | | - LABORATORY | | [...] [address] | [place] | [phone] | | [facility] | | [address] | | | - LABORATORY | | [...] + | [facility] | [address] | [place] | [phone] | | [facility] | | [address] | | | - LABORATORY | | [...] [address] | [place] | [phone] | | [facility] | | [address] | | | - LABORATORY | | [...] [address] | [place] | [phone] | | [facility] | | [address] | | | - LABORATORY | | [...] [address] | [place] | [phone] | | [facility] | | [address] | | | - LABORATORY | | [...] + | [facility] | [address] | [place] | [phone] | | [facility] | | [address] | | | - LABORATORY | | [...] | | GLOMERULAR FILTRATION | mL/min/1.73m2 | [facility] | | | TUNISIAN | RATE,ESTIMATED | | MEDICAL | | | | mL/min/1.67v0Wwoi than | | CENTER - | | [...] | | | | | mg/dL | [facility] | | | | | | MEDICAL [...] + | Performing | Address | City/State[facility] | Phone Number | | Organization | | | | + + + + + | [facility] | [address] | [place] | [phone] | | [facility] | | [address] | | | - LABORATORY | | [...] + | [facility] | [address] | [place] | [phone] | | [facility] | | [address] | | | - LABORATORY | | [...] | | | report was sent by [employer] with no significant discrepancy on | | [...] preliminary report was | | sent by [place] network disks with no significant discrepancyon 01/06/2020 4:25 PM.Dictated [...] | |A preliminary report was sent by [place] [facility] with no significant discrepancy | |on 01/06/2020 [...] | | POC | | | [facility] | | | | | | MEDICAL [...] [address] | [place] | [phone] | | [facility] | | [address] | | | - LABORATORY | | [...] [address] | [place] | [phone] | | [facility] | | [address] | | | - LABORATORY | | [...] + | [facility] | [address] | [place] | [phone] | | [facility] | | [address] | | | - LABORATORY | | [...] [address] | [place] | [phone] | | [facility] | | [address] | | | - LABORATORY | | [...] + | [facility] | [address] | [place] | [phone] | | [facility] | | [address] | | | - LABORATORY | | [...] | | MEDICAL | | | | mL/min/1.59s9Ywqi than | | CENTER - | | [...] ST. | [address] | [place], [place] | [phone] | | [facility] | | [address] | | | - LABORATORY | | [...] + | [facility] | [address] | [place] | [phone] | | [facility] | | [address] | | | - LABORATORY | | [address] | [place] | [phone] | | [facility] | | [address] | | | - LABORATORY | | [...] [address] | [place] | [phone] | | [facility] | | [address] | | | - LABORATORY | | [...] [address] | [place] | [phone] | | [facility] | | [address] | | | - LABORATORY | | [...] [address] | [place] | [phone] | | [facility] | | [address] | | | - LABORATORY | | [...] [address] | [place] | [phone] | | [facility] | | [address] | | | - LABORATORY | | [...] + | [facility] | [address] | [place], [place] | [phone] | | [facility] | | [address] | | | - LABORATORY | | [...] | | | | | | [facility] | | | | | | MEDICAL [...] ST. | [address] | [place], [place] | [phone] | | [facility] | | [address] | | | - LABORATORY | | [...] [address] | [place] | [phone] | | [facility] | | [address] | | | - LABORATORY | | [...] | [place] | | | [facility] | | [address] | | | - BLOOD BANK | [...] [address] | [place] | [phone] | | [facility] | | [address] | | | - LABORATORY | | [...] + | [facility] | [address] | [place] | [phone] | | [facility] | | [address] | | | - LABORATORY | | [...] | | MEDICAL | | | | mL/min/1.69w0Usya than | | CENTER - | | [...] [address] | [place] | [phone] | | [facility] | | [address] | | | - LABORATORY | | [...] + | [facility] | [address] | [place] | [phone] | | [facility] | | [address] | | | - LABORATORY | | [...] + | [facility] | [address] | [place] | [phone] | | [facility] | | [address] | | | - LABORATORY | | [...] + | [facility] | [address] | [place] | [phone] | | [facility] | | [address] | | | - LABORATORY | | [...] | | | POC | | | [facility] | | | | | | MEDICAL [...] [address] | [place] | [phone] | | [facility] | | [address] | | | - LABORATORY | | [...] + | [facility] | [address] | [place] | [phone] | | [facility] | | [address] | | | - LABORATORY | | [...] + | [facility] | [address] | [place] | [phone] | | [facility] | | [address] | | | - LABORATORY | | [...] [address] | [place] | [phone] | | [facility] | | [address] | | | - LABORATORY | | [...] + | [facility] | [address] | [place] | [phone] | | [facility] | | [address] | | | - LABORATORY | | [...] | | | Urine, | | | [facility] | | | Random | | | [...] + | [facility] | [address] | [place], [place] | [phone] | | [facility] | | [address] | | | - LABORATORY | | [...] + | Performed at: 01 - [facility] [place] [address], | REFERENCE LAB | | [place], [place] [id number] School Business Manager: Jerome Agudelo MD, Phone: | MICHELLE - [facility]ERRA | | [phone] | | + + + + + + + + | Performing | Address | City/State/Zipcode | Phone Number | | Organization | | | | + + + + + | REFERENCE LAB | [address] | [place], [place] | [phone] | | [facility] | Drive [facility] | [address] | | + + + + + [...] + | [facility] | [address] | [place] | [phone] | | [facility] | | [address] | | | - LABORATORY | | [...] - 1.030 | [facility] | | | [place], | | | [facility] | | [...] + | [facility] | [address] | [place] | [phone] | | [facility] | | [address] | | | - LABORATORY | | [...] ST. | [address] | [place] | [phone] | | [facility] | | [address] | | | - LABORATORY | | [...] [address] | [place] | [phone] | | [facility] | | [address] | | | - LABORATORY | | [...] | | | | CRISTINE HUDDLESTON MD ([id number]) | | | | | | on [...] + | [facility] | [address] | [place] | [phone] | | [facility] | | [address] | | | - LABORATORY | | [...] [address] | [place] | [phone] | | [facility] | | [address] | | | - LABORATORY | | [...] + | [facility] | [address] | [place] | [phone] | | [facility] | | [address] | | | - LABORATORY | | [...] + | [facility] | [address] | [place] | [phone] | | [facility] | | [address] | | | - LABORATORY | | [...] [address] | [place] | [phone] | | [facility] | | [address] | | | - LABORATORY | | [...] [address] | [place] | [phone] | | [facility] | | [address] | | | - LABORATORY | | [...] | | | | | | [employer] | | | | | [...] + | Performing | Address | City/State/[facility] | Phone Number | | Organization | | | | + + + + + | [facility] | [address] | [place] | [phone] | | [facility] | | [address] | | | - LABORATORY | | [...] | | | | mmol/L | [facility] | | | | | | MEDICAL [...] | | GLOMERULAR FILTRATION | mL/min/1.73m2 | [facility] | | | TUNISIAN | RATE,ESTIMATED | | MEDICAL | | | | mL/min/1.32b3Xbca than | | CENTER - | | [...] + | [facility] | [address] | [place] | [phone] | | [facility] | | [address] | | | - LABORATORY | | [...] [address] | [place] | [phone] | | [facility] | | [address] | | | - LABORATORY | | [...] [address] | [place] | [phone] | | [facility] | | [address] | | | - LABORATORY | | [...] [address] | [place] | [phone] | | [facility] | | [address] | | | - LABORATORY | | [...] [address] | [place] | [phone] | | [facility] | | [address] | | | - LABORATORY | | [...] | | | | | NPO, Daytime 6133-6290 Use NIGHT | | | | | | | DOSE for doses scheduled: | | | | | | | HS, Nighttime 2700-1963 If the | | | | | [...] | | | | | TITRATED, Starting [place] 01/06/20 at | | | | | [...]
--- OUTSIDE RECORDS SUMMARY | ~2020-02-15 | XMS | Encounter Summary ---
Demographics + + + | Address | [address] | | | [place] [address] | + + + | Home Phone [...] Samantha Ramos | ECON | [address] # | | | | | [place], [place] | | | | | [address] | | + + + + + Care Team Providers + +------+ + | Care Brick Off Bearer Name | Role | Phone | + [...] Rd | | | | | | [place], [place] | | | | | | [address] | | | | | | [phone] | | | | | | | [...] DEPARTMENT OF | [address] | [place] [address] | | | PATHOLOGY | [address] | | | + + + + + | [facility] DEPARTMENT OF | [address] | [place] [address] | | | PATHOLOGY | [address] [...] + + + | [facility] | [address] [facility] | [place] [address] | | | PATHOLOGY | [address] | | | + + + + + | [facility] | [address] [facility] | [place] [address] | | | PATHOLOGY | [address] [...] DEPARTMENT OF | [address] | [place] [address] | | | PATHOLOGY | [address] | | | + + + + + | [facility] DEPARTMENT OF | [address] | [place] [address] | | | PATHOLOGY | [address] [...] [place] DEPARTMENT OF | [address] [facility] | [place] [address] | | | PATHOLOGY | [address] | | | + + + + + | [facility] DEPARTMENT OF | [address] [facility] | [place] [address] | | | PATHOLOGY | [address] [...] + + + + + | [facility] DEPARTMENT OF | [address] | [place] [address] | | | PATHOLOGY | [address] | | | + + + + + | [facility] DEPARTMENT OF | [address] | [place] [address] | | | PATHOLOGY | [address] [...] Performed At | + + + | [id number] CALCIUM Checked and phoned. | [facility] | | | DEPARTMENT OF | | | PATHOLOGY | + + + + + + + + | Performing | Address | City/State/Zipcode | Phone Number | | Organization | | | | + + + + + | [facility] DEPARTMENT OF | [address] | [place] [address] | | | PATHOLOGY | [address] | | | + + + + + | [facility] DEPARTMENT OF | [address] | [place] [address] | | | PATHOLOGY | [address] | | | + + + + + CHEMISTRY MASTER PANEL (12/03/2002 6:00 AM PST) + + | Specimen | + + | | + + + + + | Narrative | Performed At | + + + | [id number] CALCIUM Checked and phoned. | [facility] | | | DEPARTMENT OF | | | PATHOLOGY | + + + + + + + + | Performing | Address | City/State/Zipcode | Phone Number | | Organization | | | | + + + + + | [facility] DEPARTMENT OF | [address] | [place] [address] | | | PATHOLOGY | [address] | | | + + + + + | [facility] DEPARTMENT OF | [address] | [place] [address] | | | PATHOLOGY | [address] [...] DEPARTMENT OF | [address] | [place] [address] | | | PATHOLOGY | [address] | | | + + + + + | [facility] DEPARTMENT OF | [address] | [place] [address] | | | PATHOLOGY | [address] | | | + + + + + MAGNESIUM, PLASMA (12/03/2002 2:20 AM PST) + +-------+ + + + | Component | Value | Ref Range | Performed | Pathologist | | | | | At | Signature | + +-------+ + + + | MAGNESIUM,P | 1.9 | 1.8 - 2.5 mg/dL | [facility] | | | LASMA | | | [...] + + + | [facility] | [address] | [place] [address] | | | PATHOLOGY | [address] | | | + + + + + | [facility] | [address] | [place] [address] | | | PATHOLOGY | [address] [...] DEPARTMENT OF | [address] | [place] [address] | | | PATHOLOGY | [address] | | | + + + + + | [facility] DEPARTMENT OF | [address] | [place] [address] | | | PATHOLOGY | [address] [...] + + + | [facility] | [address] [facility] | [place] [address] | | | PATHOLOGY | [address] | | | + + + + + | [facility] | [address] [facility] | [place] [address] | | | PATHOLOGY | [address] [...] | | | | Test performed by [place] | | | | | | [facility] | | | | | | Danii. | | | | + + + + + + + + | Specimen | + + | | + + + + + + + | Performing | Address | City/State/Zipcode | Phone Number | | Organization | | | | + + + + + | [facility] | [address] | [place] [address] | | | LABORATORY | | | [...] + + + + + | [facility] DEPARTMENT OF | [facility] | [place] [address] | | | PATHOLOGY | [address] | | | + + + + + | [facility] DEPARTMENT OF | [facility] | [place] [address] | | | PATHOLOGY | [address] [...] Performed At | + + + | [id number] Checked and phoned. CO2 [id number] Checked and phoned. | [facility] | | | DEPARTMENT OF | | | PATHOLOGY | + + + + + + + + | Performing | Address | City/State/Zipcode | Phone Number | | Organization | | | | + + + + + | [facility] DEPARTMENT OF | [address] | [place] [address] | | | PATHOLOGY | [address] | | | + + + + + | [facility] DEPARTMENT OF | [address] | [place] [address] | | | PATHOLOGY | [address] | | | + + + + + MAGNESIUM, PLASMA (12/02/2002 6:45 PM PST) + +-------+ + + + | Component | Value | Ref Range | Performed | Pathologist | | | | | At | Signature | + +-------+ + + + | MAGNESIUM,P | 1.8 | 1.8 - 2.5 mg/dL | [facility] | | | LASMA | | | DEPARTMENT | | | | | | OF | | | | | | PATHOLOGY | | + +-------+ + + + + + | Specimen | + + | | + + + + + | Narrative | Performed At | + + + | [id number] Checked and phoned. CO2 [id number] Checked and phoned. | [facility] | | | DEPARTMENT OF | | | PATHOLOGY | + + + + + + + + | Performing | Address | City/State/Zipcode | Phone Number | | Organization | | | | + + + + + | [facility] DEPARTMENT OF | [address] | [place] [address] | | | PATHOLOGY | [address] | | | + + + + + | [facility] DEPARTMENT OF | [address] | [place] [address] | | | PATHOLOGY | [address] | | | + + + + + PHOSPHORUS, PLASMA (12/02/2002 6:45 PM PST) + +-------+ + + + | Component | Value | Ref Range | Performed | Pathologist | | | | | At | Signature | + +-------+ + + + | PHOSPHORUS, | 3.0 | 2.5 - 5.0 mg/dL | [facility] | | | PLASMA | | | DEPARTMENT | | | (LAB) | | | OF | | | | | | PATHOLOGY | | + +-------+ + + + + + | Specimen | + + | | + + + + + | Narrative | Performed At | + + + | [id number] Checked and phoned. CO2 [id number] Checked and phoned. | [facility] | | | DEPARTMENT OF | | | PATHOLOGY | + + + + + + + + | Performing | Address | City/State/Zipcode | Phone Number | | Organization | | | | + + + + + | [facility] DEPARTMENT OF | [address] [facility] | [place] [address] | | | PATHOLOGY | [address] | | | + + + + + | [facility] DEPARTMENT OF | [address] [facility] | [place] [address] | | | PATHOLOGY | [address] | | | + + + + + CHEMISTRY MASTER PANEL (12/02/2002 6:45 PM PST) + + | Specimen | + + | | + + + + + | Narrative | Performed At | + + + | [id number] Checked and phoned. CO2 [id number] Checked and phoned. | [facility] | | | DEPARTMENT OF | | | PATHOLOGY | + + + + + + + + | Performing | Address | City/State/Zipcode | Phone Number | | Organization | | | | + + + + + | [facility] DEPARTMENT OF | [facility] | [place] [address] | | | PATHOLOGY | [address] | | | + + + + + | [facility] DEPARTMENT OF | [facility] | [place] [address] | | | PATHOLOGY | [address] | | | + + + + + documented in this encounter Visit Diagnoses Not on filedocumented in this encounter"
--- OUTSIDE RECORDS SUMMARY | ~2020-02-15 | XMS | Encounter Summary ---
Demographics + + + | Address | [address] | | | [place] [address] | + + + | Home Phone [...] Samantha Ramos | ECON | [address] # | | | | | [place] | | | | | [address] | | + + + + + Care Team Providers + +------+ + | Care Charge Aide Name | Role | Phone | [...] Mailcode: | | | | | | [place], [place] | [address] | | | | | manifestatio | [address] | for Health | | | | | n ([facility]) | Phone: | and Healing, | | | | | Procedures | [phone] | Building [address], | | | | | CONSULT TO | Fax: | 11th Floor | | | | | OPHTHALMOLOG | [phone] | [place], [place] | | | | | Y | | [address] | | | | | | | Phone: | | | | | | | [phone] | | | | | | | Fax: | | | | | | | [phone] | +--------+--------+ + + + + Reason [...] | associated | [place], [place] | [facility] [address] | | | | | with type 1 | [address] | [address] | | | | | diabetes | Phone: | [place], [place] | | | | | mellitus | [phone] | [address] | | | | | (HCC) Type | Fax: | Phone: | | | | | 1 diabetes | [phone] | [phone] | | | | | mellitus | | Fax: | | | | | with | | [phone] | | | | | hyperglycemi | [...] | | | [address] | [place], [place] | ([facility]) (Primary Dx); | | | | [address] | [address] | Hyperglycemia due to | | | | [facility] | [phone] | type 1 diabetes | | | | [address] [place], | | mellitus (HCC); Leg | | | | [place] [address] | | wound, right, | | | | [phone] | | initial encounter | +--------+---------+ + [...] might be different f rom the original. [facility] Diabetes Clinic New Patient Consultation Referring physician: Jaison Pascual DO Primary care provider: Jaison Pascual DO Reason for Consultation: Type 1 diabetes History of Present Illness: This is a new patient to my clinic. Brooks Marquez II is a 24 y.o. male referred for evaluation of type 1 diabetes. Diagnosed in 2001. Seen in childhood in [facility] pediatric endocr inology. Long-standing suboptimal control. Diabetes complicated by gastroparesis and has bee n seen in the ER frequently. Multiple past episodes of DKA, most recently earlier this month at [facility]. Frequent nausea. Doing well since discharge and no current issues with vomiting. N o numbness/tingling. Did not have insurance for a period of time and was paying out of [employer] for his insulin approx 1 year ago [...] tobacco use: 1/2 ppd. 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 Allergies: Allergies Allergen Reactions Codeine Nausea and [...] random - Final result (09/02/2015 8:48 AM [facility]) Component Value Range Microalb, Ur 1337.2 [...] Hyperglycemia due to type 1 diabetes mellitus ([facility]) S81.801A Leg wound, right, initial encounter [...] in lower extremities. Already scheduled to [facility]. Discussed conservative measures for wound and signs/symptoms [...] | | | LABORATORY | | | [place]ISH | | | SERVICES, | | | [...] | + + + + + | [facility] | [address] | [place] [address] | | | SERVICES, CORE | [address] [...]
--- OUTSIDE RECORDS SUMMARY | ~2020-02-15 | XMS | Clinical Summary ---
Demographics + + + | Address | [address] | | | [place] [address] | + + + | Home Phone [...] Samantha Ramos | ECON | [address] # | | | | | [place], [place] | | | | | [address] | | + + + + + Care Team Providers + +------+ + | Care Inspector And Mender Name | Role | Phone | + +------+ + | Erich Yates PA-C | PCP | | + +------+ + Source Comments VERITO is fully live on both [facility] and [facility] InPatient.[facility] Allergies + + + + + [...] his diabetes. Current calcium channel | | giovaan level is not working we will increase [...] | | | + +--------+ +--------+-------+---------+--------+ | [employer]INTENA[employer]CE MEDICAID | ELECTRICIAN RE[employer]IF[employer] MAINTENANCE | xxxxxxxx | 04/03/20 | | | [...] [place] | | | 1 (Home) | [address] | + +--------+ +--------+ + + Advance [...]
--- OUTSIDE RECORDS SUMMARY | ~2020-02-15 | XMS | Encounter Summary ---
Demographics + + + | Address | [address] | | | [place] [address] | + + + | Home Phone [...] [place] | | | | | [address] | | + + + + + Care Team Providers + +------+ + | Care Embedded Developer Name | Role | Phone | [...] | | | | | [address] | [place] | | | | | [place] | [address] | | | | | [address] | | | | | | [phone] | | | +--------+ + + + [...] +----+---+ + + | | 2 | [place] | | | | 0 | 43-degrees | | | | 4 | | | | | 8 | | | +----+---+ + + | | 2 | First | | | | [address] | [address] | | | | 5 | | | | | 4 | | | +----+---+ + + | | 2 | [place] off | | | | 1 | [...] 2019 | Office | | [address] [facility] | | | | Visit | | [address] [place], [place] | | | | | | [address] | | | | | | | [...] - 09/19/2018 8:55 PM PST Anesthesia Airway Ysosmbhsw53/25/2018 | | 20:40Preprocedure check: patient identified, suction, [...]
--- OUTSIDE RECORDS SUMMARY | ~2020-02-15 | XMS | Encounter Summary ---
Demographics + + + | Address | [address] | | | [place] [address] | + + + | Home Phone [...] Samantha Ramos | ECON | [address] # | | | | | [place] | | | | | [address] | | + + + + + Care Team Providers + +------+ + | Care Turning And Beading Machine Operator Name | Role | Phone | + +------+ + PCP | Unavailable | + +------+ + Encounter Details +--------+ + + + + | Date | Type | Department | Care Team | Description | +--------+ + + + + | 09/30/ | Office | [facility] | Clinic, Pediatric | Progress Note | | 2005 | Visit-Trans | PREPARATION SUPERVISOR FREEZING | Endocrinology | | | | cribed [...] as of this encounter Progress Notes Interface, Carton Liner In - 04/25/2005 12:43 AM PDT [id number] NAHOMY RAYMOND [facility] Date: 09/30/2004 [...] eats. DENISSE Carr, CNSD, LD AT / [id number] / [id number] / [id number] / documented i n this encounter Plan of Treatment Not on filedocumented as of this encounter Visit Diagnoses Not on filedocumented in this encounter"
--- OUTSIDE RECORDS SUMMARY | ~2020-02-15 | XMS | Encounter Summary ---
Demographics + + + | Address | [address] | | | [place] [address] | + + + | Home Phone [...] Samantha Ramos | ECON | [address] # | | | | | [place] | | | | | [address] | | + + + + + Care Team Providers + +------+ + | Care Sugar House Supervisor Name | Role | Phone | [...] bone and | [address] | [address] [place], | | | | | articular | [place], [place] | [place] | | | | | cartilage | [address] | [address] | | | | | Loose body | Phone: | Phone: | | | | | in upper arm | [phone] | [phone] | | | | | joint | Fax: | Fax: | | | | | Procedures | [phone] | [phone] | | | | | CONSULT TO | | | | | | | OR [facility] | | | | | | | EXPLORE | | | | | | | ELBOW JOINT | | | | | | | UT BONE | | | | | | [...] | | | | Mailcode: [id number] | [place], [place] | Uncertain Behavior | | | | [facility] | [address] | of Bone and | | | | [place], [place] | [phone] | Articular Cartilage | | | | [address] | | | | | | [phone] | | | +--------+---------+ + + + [...] Codeine Social history: The patient lives in [place], [place]. The patient smokes half a pack [...]
--- OUTSIDE RECORDS SUMMARY | ~2020-02-15 | XMS | Encounter Summary ---
Demographics + + + | Address | [address] | | | [place] [address] | + + + | Home Phone [...] Samantha Ramos | ECON | [address] # | | | | | [place] | | | | | [address] | | + + + + + Care Team Providers + +------+ + | Care Gourmet Coffee Attendant Name | Role | Phone | [...] at [facility] [address] | [address] | Review | | | | [address] | [place], [place] | | | | | Mailcode: Center | [address] | | | | | for Health and | [phone] | | | | | [place] [address] | | | | | | [place], [place] | | | | | | [address] | | | | | | [phone] | | | +--------+ + + + [...]
--- OUTSIDE RECORDS SUMMARY | ~2020-02-15 | XMS | Encounter Summary ---
Demographics + + + | Address | [address] | | | [place] [address] | + + + | Home Phone [...] Samantha Ramos | ECON | [address] # | | | | | [place], [place] | | | | | [address] | | + + + + + Care Team Providers + +------+ + | Care Recovery Room Rn Name | Role | Phone | + [...] as of this encounter Progress Notes Interface, Equipment Mechanic Specialist In - 04/25/2005 2:09 AM PDT [id number] 12/11/2004 12/11/2004 [id number] NAHOMY Durbin [facility] [address] [place], [place] [address] or December 11, 2004 Neri Mojica MD [address], [place] [address] RE: BROOKS MARQUEZ II MR #: [id number] Dear Dr. Mojica: I reviewed Brooks in Endocrine Clinic today. This is his second visit our clinic, having established care here in September. To recap, he was diagnosed with type 1 diabetes in April 2002 and initially received his education in [employer]. He has been followed by yourself until [...] at this present time, although I did appliance counselor him that this would be optimal [...] months' time. Yours sincerely, Ashanti Roque M.D. Jewel Sorter, Pediatric Endocrinology / [id number] / [id number] / [id number] / documented i n this encounter Plan of Treatment Not on filedocumented as of this encounter Visit Diagnoses Not on filedocumented in this encounter"
--- OUTSIDE RECORDS SUMMARY | ~2020-02-15 | XMS | Encounter Summary ---
Demographics + + + | Address | [address] | | | [place] [address] | + + + | Home Phone [...] Samantha Ramos | ECON | [address] | | | | | [place] | | | | | [address] | | + + + + + Care Team Providers + +------+ + | Care Chaperon Name | Role | Phone | + [...] | | 2015 | | Center at [facility] [address] | | - General | | | | [address] | | | | | | Mailcode: [place] | | | | | | [facility] and | | | | | | [facility] [address] | | | | | | [place], [place] | | | | | | [address] | | | | | | [phone] | | | +--------+ + + + [...]
--- OUTSIDE RECORDS SUMMARY | ~2020-02-15 | XMS | Encounter Summary ---
Demographics + + + | Address | [address] | | | [place] [address] | + + + | Home Phone | | + + + | Preferred Language | Unknown | + + + | Marital Status | Single | + + + | Caodaism Affiliation | Unknown | + + + | Race | Unknown | + + + | Ethnic Group | Unknown | + + + Author + + + | Author | [facility] | | | and [place] | + + + | Organization | [facility] | | | [...] [place] | | | | | [address] | | + + + + + Care Team Providers + +------+ + | Care Cushion Gum Applicator Name | Role | Phone | + +------+ + | Erich Yates | PCP | | + +------+ + Encounter Details +--------+ + + + + | Date | Type | Department | Care Team | Description | +--------+ + + + + | 03/16/ | Orders Only | [facility] | Conversion | | | 2018 | | [place]PHROLOGY [place] | Transaction, | | | | | [address] | Provider Unknown | | | | | [address] [place], [place] | | | | | | [address] | (Fax) | | | | | [phone] | | | +--------+ + + + [...] 2019 | Office | | [address] [facility] | | | | Visit | | [address] [place] | | | | | | [address] | | | | | | | [...]
--- OUTSIDE RECORDS SUMMARY | ~2020-02-15 | XMS | Encounter Summary ---
Demographics + + + | Address | [address] | | | [place] [address] | + + + | Home Phone [...] Samantha Ramos | ECON | [address] # | | | | | [place] | | | | | [address] | | + + + + + Care Team Providers + +------+ + | Care Cigarette Examiner Name | Role | Phone | [...] | | | | | diabetes | [place], [place] | for Health | | | | | mellitus | [address] | and Healing, | | | | | ([facility]) | Phone: | Building 2 | | | | | Procedures | [phone] | [place], [place] | | | | | CONSULT TO | Fax: | [address] | | | | | GI PROCEDURE | [phone] | Phone: | | | | | UNIT: EGD | | [phone] | | | | | | | Fax: | | | | | | | [phone] | + +--------+ + + + + [...] | | 2019 | | Center at [facility] 3485 | ANP [address] [facility] | EGD w/ pyloric | | | | [address] | [facility] [address] | botox) | | | | Mailcode: Center | [place], [place] | | | | | [facility] Health and | [address] | | | | | [place] [address] | [phone] | | | | | [place], [place] | | | | | | [address] | | | | | | [phone] | | | +--------+ + + + [...]
--- OUTSIDE RECORDS SUMMARY | ~2020-02-15 | XMS | Encounter Summary ---
Demographics + + + | Address | [address] | | | [place] [address] | + + + | Home Phone [...] Samantha Ramos | ECON | [address] # | | | | | [place] | | | | | [address] | | + + + + + Care Team Providers + +------+ + | Care Cement Production Plant Operator Name | Role | Phone | + +------+ + | Erich Yates PA-C | PCP | | + +------+ + Encounter Details +--------+ + + + + | Date | Type | Department | Care Team | Description | +--------+ + + + + | 11/28/ | Anesthesia | VERITO BUTLERU at [facility] | Beth [place], | | | 2019 | Event | [place] [address] | RN [address] [facility] | | | | | [address] Mailcode: | [address] | | | | | [facility] for | [place], [place] | | | | | Health and Healing, | [address] | | | | | Building 2 | | | | | | [place], [place] | | | | | | [address] | | | | | | [phone] | | | +--------+ + + + [...]
--- OUTSIDE RECORDS SUMMARY | ~2020-02-15 | XMS | Encounter Summary ---
Demographics + + + | Address | [address] | | | [place] [address] | + + + | Home Phone | | + + + | Preferred Language | Unknown | + + + | Marital Status | Single | + + + | Taoism Affiliation | Unknown | + + + | Race | Unknown | + + + | Ethnic Group | Unknown | + + + Author + + + | Author | [facility] | | | and [place] | + + + | Organization | [facility] | | | [...] [place] | | | | | [address] | | + + + + + Care Team Providers + +------+ + | Care Human Resource Manager Name | Role | Phone | [...] | | | [address] | [place] [address] | | | | | [place] [address] | | | | | | [phone] | | | +--------+ + + + [...] 2019 | Office | | [address] [facility] | | | | Visit | | 160 [place] | | | | | | [address] | | | | | | | [...]
--- OUTSIDE RECORDS SUMMARY | ~2020-02-15 | XMS | Encounter Summary ---
Demographics + + + | Address | [address] | | | [place] [address] | + + + | Home Phone [...] Samantha Ramos | ECON | [address] # | | | | | [place] | | | | | [address] | | + + + + + Care Team Providers + +------+ + | Care Oliving Machine Operator Name | Role | Phone [...] | | | | unspecified | [address] | [address] | | | | | type | [address] | Wendy | | | | | Procedures | [facility] | [place], [place] | | | | | CONSULT TO | Rd | [address] | | | | | HEMATOLOGY / | [place], [place] | Phone: | | | | | ONCOLOGY | [address] | [phone] | | | | | [place] NEW | Phone: | Fax: | | | | | PATIENT | [phone] | [phone] | | | | | LEVEL V [place] | Fax: | | | | | | EST PATIENT | [phone] | | | | | | LEVEL [...] | | | | s (HCC) | [facility] | Mailcode: | | | | | Abdominal | [address] | [address] | | | | | pain, | Rd | for Health | | | | | chronic, | [place], [place] | and Healing, | | | | | epigastric | [address] | Building 2 | | | | | Chronic | Phone: | [place], [place] | | | | | diarrhea | [phone] | [address] | | | | | Severe | Fax: | Phone: | | | | | protein-judy | [phone] | [phone] | | | | | danyel | | Fax: | | | | | malnutrition | | [phone] | | | | | (HCC) | [...] Care Coordination | | 2019 | | [place] at [facility] [address] | MS-C [address] [facility] | (Local provider, | | | | [address] | [address] | local labs) | | | | Mailcode: [place] | [place], [place] | | | | | [facility] and | [address] | | | | | [place] [address] | [phone] | | | | | [place], [place] | | | | | | [address] | | | | | | [phone] | | | +--------+ + + + [...]
--- OUTSIDE RECORDS SUMMARY | ~2020-02-15 | XMS | Encounter Summary ---
Demographics + + + | Address | [address] | | | [place] [address] | + + + | Home Phone [...] + + + | Author | [facility] | | | and [place] | + + + | Organization | [facility] | | [...] [place] | | | | | [address] | | + + + + + Care Team Providers + +------+ + | Care Recruiting Specialist Name | Role | Phone | + +------+ + | Emmanuel Saavedra PCP | | + +------+ + Encounter Details +--------+--------+ + + + | Date | Type | Department | Care Team | Description | +--------+--------+ + + + | 01/05/ | Intake | JASS ARDON | | N/A | | 2019 | | TRANSFER [place] [address] | | | | | | Kay[facility]nn [facility] | | | | | | [place], [place] | | | | | | [address] | | | | | | [phone] | | | +--------+--------+ + + + [...] 2019 | Office | | [address] [facility] | | | | Visit | | 160 [place], [place] | | | | | | [address] | | | | | | | [...]
--- OUTSIDE RECORDS SUMMARY | ~2020-02-15 | XMS | Encounter Summary ---
Demographics + + + | Address | [address] | | | [place] [address] | + + + | Home Phone [...] Samantha Ramos | ECON | [address] # | | | | | [place] | | | | | [address] | | + + + + + Care Team Providers + +------+ + | Care House Moving Supervisor Name | Role | Phone | [...] | | [address], 3rd floor | | ([facility]) | | | | [place], [place] | | | | | | [address] | | | | | | [phone] | | | +--------+------+ + + + [...] | + + + + + | [facility] | [address] | [place] [address] | | | SERVICES, ZOEY | ZENA [...]
--- OUTSIDE RECORDS SUMMARY | ~2020-02-15 | XMS | Encounter Summary ---
Demographics + + + | Address | [address] | | | [place] [address] | + + + | Home Phone [...] Samantha Ramos | ECON | [address] # | | | | | [place] | | | | | [address] | | + + + + + Care Team Providers + +------+ + | Care Field Artillery Targeting Technician Name | Role | Phone | [...] | Only | [address] | REPAIRER AUTO CLOCKS [address] | | | | | [address] | [address] | | | | | Mailcode: PV430 | [place] [address] | | | | | [facility] | [phone] | | | | | [place], [place] | | | | | | [address] | | | | | | [phone] | | | +--------+ + + + [...]
--- OUTSIDE RECORDS SUMMARY | ~2020-02-15 | XMS | Encounter Summary ---
Demographics + + + | Address | [address] | | | [place] [address] | + + + | Home Phone [...] Samantha Ramos | ECON | [address] # | | | | | [place] | | | | | [address] | | + + + + + Care Team Providers + +------+ + | Care Boatbuilder Apprentice Wood Name | Role | Phone | [...] | | [address], 3rd floor | | ([facility]) | | | | [place], [place] | | | | | | [address] | | | | | | [phone] | | | +--------+------+ + + + [...] | | | LABORATORY | | | ERITREAN | | | SERVICES, | | | [...] | + + + + + | [facility] | [address] | [place] [address] | | | SERVICES, ZOEY | ZENA [...]
--- OUTSIDE RECORDS SUMMARY | ~2020-02-15 | XMS | Encounter Summary ---
Demographics + + + | Address | [address] | | | [place] [address] | + + + | Home Phone [...] Samantha Ramos | ECON | [address] # | | | | | [place] | | | | | [address] | | + + + + + Care Team Providers + +------+ + | Care Hotel Guest Service Agent Name | Role | Phone | [...] | Only | [address] | CERTIFIED TOWER CLIMBER [address] | | | | | [address] | [address] | | | | | Mailcode: PV430 | [place] [address] | | | | | [facility] | [phone] | | | | | [place], [place] | | | | | | [address] | | | | | | [phone] | | | +--------+ + + + [...]
--- OUTSIDE RECORDS SUMMARY | ~2020-02-15 | XMS | Encounter Summary ---
Demographics + + + | Address | [address] | | | [place] [address] | + + + | Home Phone [...] Samantha Ramos | ECON | [address] # | | | | | [place], [place] | | | | | [address] | | + + + + + Care Team Providers + +------+ + | Care Direct Chill Caster Name | Role | Phone | [...] as of this encounter Discharge Summaries Interface, Claims Auditor In - 04/08/2006 3:[address] [address] [facility] MEDICAL SUMMARY OF HOSPITALIZATION Med [...] initially presented to the emergency department in [place] with four to five days of flu-like [...] insulin drip. He was transferred to the [facility] Pediatric Intensive Care Unit. HOSPITAL COURSE: [...] diabetes education from the endocrinology team. A senior support analyst also worked closely with the family in educating on the [place] [employer] diets. On the day of [...] Lindsey M.D. Tereso Morocho M.D. TC:x11 cc: [id number] signed by Interface, Claims Auditor In at 04/08/2006 3:07 [facility] this [facility] Plan of Treatment Not on filedocumented as of this encounter Visit Diagnoses Not on filedocumented in this encounter"
--- OUTSIDE RECORDS SUMMARY | ~2020-02-15 | XMS | Encounter Summary ---
Demographics + + + | Address | [address] | | | [place] [address] | + + + | Home Phone [...] Samantha Ramos | ECON | [address] # | | | | | [place] | | | | | [address] | | + + + + + Care Team Providers + +------+ + | Care Platform Material Handler Manager Name | Role | Phone | [...] | | | | Mailcode: Center | [place], [place] | | | | | for Health and | [address] | | | | | [facility] 2 | [phone] | | | | | [place], [place] | | | | | | [address] | | | | | | [phone] | | | +--------+ + + + [...]
--- OUTSIDE RECORDS SUMMARY | ~2020-02-15 | XMS | Encounter Summary ---
Demographics + + + | Address | [address] | | | [place] [address] | + + + | Home Phone [...] Samantha Ramos | ECON | [address] # | | | | | [place] | | | | | [address] | | + + + + + Care Team Providers + +------+ + | Care Nanotechnologist Name | Role | Phone | + +------+ + | Neri Mojica MD | PCP | | + +------+ + Encounter Details +--------+ + + + + | Date | Type | Department | Care Team | Description | +--------+ + + + + | 10/13/ | Procedure - | Digestive Health | Record, Operation | Operative Report | | 2006 | | [place] at [facility] 1135 | | | | | Transcribed | [address] | | | | | | Mailcode: Center | | | | | | for Health and | | | | | | Healing, Building 2 | | | | | | [facility] [place] | | | | | | [address] | | | | | | [phone] | | | +--------+ + + + [...] | 10/13/2006 12:00 AM PST | | [id number] | | [id number] [place] [address] | | | | Date: 10/13/2006 | | | | Attending Surgeon: Neri Mcgarry M.D., Ph.D. | | | | Epic Specialist(s): Stefano Clements M.D. | | | | [...] Mcgarry M.D., Ph.D. | | | | [facility] / | | [id number] / [id number] / [id number] / [id number] | | | | | | | | | | | | Electronically signed by Neri Mcgarry 10-24-2006 04:46:26 PM | | | | | + + documented in this encounter Visit Diagnoses Not on filedocumented in this encounter"
--- OUTSIDE RECORDS SUMMARY | ~2020-02-15 | XMS | Encounter Summary ---
Demographics + + + | Address | [address] | | | [place] [address] | + + + | Home Phone [...] Samantha Ramos | ECON | [address] # | | | | | [place] | | | | | [address] | | + + + + + Care Team Providers + +------+ + | Care Carbon Setter Name | Role | Phone | [...] | | | | | gastroparesi | [address] [facility] | | | | | | s associated | [address] | | | | | | with type 1 | Rd | | | | | | diabetes | [place], [place] | | | | | | mellitus | [address] | | | | | | ([facility]) | Phone: | | | | | | Procedures | [phone] | | | | | | NM GASTRIC | Fax: | | | | | | EMPTYING | [phone] | | | | | | STUDY [...] | | | | | diabetes | [place], [place] | floor | | | | | mellitus | [address] | [place], [place] | | | | | ([facility]) | Phone: | [address] | | | | | Procedures | [phone] | Phone: | | | | | CONSULT TO | Fax: | [phone] | | | | | GI PROCEDURE | [phone] | Fax: | | | | | UNIT: EGD | | [phone] | + +--------+ + + + + Encounter Details +--------+ + + + + | Date | Type | Department | Care Team | Description | +--------+ + + + + | 07/04/ | Suspender Cutter | Digestive Health | Neri Steven MD | Diabetic | | 2019 | | Center at [facility] [address]85 | [address] | gastroparesis | | | | [address] | [address] [place], | associated with type | | | | Mailcode: [place] | [place] [address] | 1 diabetes mellitus | | | | for Health and | [phone] | ([facility]) (Primary Dx) | | | | Healing, Building 2 | | | | | | [place], [place] | | | | | | [address] | | | | | | [phone] | | | +--------+ + + + [...] | | | | ([facility]) | | + +---------+--------+ + + documented as of this encounter Visit Diagnoses + + | Diagnosis | + + | Diabetic gastroparesis associated with type 1 diabetes mellitus (HCC) - Primary | + + documented in this encounter"
--- OUTSIDE RECORDS SUMMARY | ~2020-02-15 | XMS | Encounter Summary ---
Demographics + + + | Address | [address] | | | [place] [address] | + + + | Home Phone [...] [place] | | | | | [address] | | + + + + + Care Team Providers + +------+ + | Care Conductor And Engineer Name | Role | Phone | [...] + + | 06/22/ | Telephone | [facility] | Winston Whitman MD | Other (Appointment | | 2019 | | NEPHROLOGY [place] | [address] | reminder call) | | | | [address] | [facility] [place] | | | | | 160 [place], [place] | [address] | | | | | [address] | | | | | | [phone] | | | +--------+ + + + [...] 2019 | Office | | [address] [facility] | | | | Visit | | [address] [place] | | | | | | [address] | | | | | | | | +--------+ + + + + documented as of this encounter Visit Diagnoses Not on filedocumented in this encounter"
--- OUTSIDE RECORDS SUMMARY | ~2020-02-15 | XMS | Encounter Summary ---
Demographics + + + | Address | [address] | | | [place] [address] | + + + | Home Phone [...] [place] | | | | | [address] | | + + + + + Care Team Providers + +------+ + | Care Brand Lead Name | Role | Phone | + +------+ + | Erich Yates | PCP | | + +------+ + Encounter Details +--------+ + + + + | Date | Type | Department | Care Team | Description | +--------+ + + + + | 01/11/ | Orders Only | [facility] | Winston Whitman MD | | | 2019 | | NEPRHOLOGY [place] | [address] | | | | | [address] | [address] [place], [place] | | | | | 101 [place], [place] | [address] | | | | | [address] | | | | | | [phone] | | | +--------+ + + + [...] 2020 | Office | | [address] [facility] | | | | Visit | | [address] [place] | | | | | | [address] | | | | | | | [...]
--- OUTSIDE RECORDS SUMMARY | ~2020-02-15 | XMS | Encounter Summary ---
Demographics + + + | Address | [address] | | | [place] [address] | + + + | Home Phone [...] Samantha Ramos | ECON | [address] # | | | | | [place] | | | | | [address] | | + + + + + Care Team Providers + +------+ + | Care Sponge Press Operator Name | Role | Phone [...] | | | | | diabetes | [place], [place] | floor | | | | | mellitus | [address] | [place], [place] | | | | | ([facility]) | Phone: | [address] | | | | | Procedures | [phone] | Phone: | | | | | CONSULT TO | Fax: | [phone] | | | | | GI PROCEDURE | [phone] | Fax: | | | | | UNIT: EGD | | [phone] | + +--------+ + + + + Encounter Details +--------+ + + + + | Date | Type | Department | Care Team | Description | +--------+ + + + + | 08/16/ | Maple Products Supervisor | Digestive Health | Beth Mondragon, | Diabetic | | 2019 | | Center at [facility] 3485 | ANP [address] [facility] | gastroparesis | | | | [address] | [address] | associated with type | | | | Mailcode: Center | [place], [place] | 1 diabetes mellitus | | | | for Health and | [address] | ([facility]) (Primary Dx) | | | | [facility] 2 | [phone] | | | | | [place], [place] | | | | | | [address] | | | | | | [phone] | | | +--------+ + + + [...]
--- OUTSIDE RECORDS SUMMARY | ~2020-02-15 | XMS | Encounter Summary ---
Demographics + + + | Address | [address] | | | [place] [address] | + + + | Home Phone [...] [place] | | | | | [address] | | + + + + + Care Team Providers + +------+ + | Care Prepleater Name | Role | Phone | + [...] [place] | | | | | | [address] | (Fax) | | | | | [phone] | | | +--------+ + + + [...] 2019 | Office | | [address] [facility] | | | | Visit | | [address] [place] | | | | | | [address] | | | | | | | [...]
--- OUTSIDE RECORDS SUMMARY | ~2020-02-15 | XMS | Encounter Summary ---
Demographics + + + | Address | [address] | | | [place] [address] | + + + | Home Phone | | + + + | Preferred Language | Unknown | + + + | Marital Status | Single | + + + | Spiritism Affiliation | Unknown | + + + | Race | Unknown | + + + | Ethnic Group | Unknown | + + + Author + + + | Author | [facility] | | | and [place] | + + + | Organization | [facility] | | [...] [place] | | | | | [address] | | + + + + + Care Team Providers + +------+ + | Care Manager Secondary Name | Role | Phone | + [...] | | | [address] | [place] [address] | | | | | [place] [address] | | | | | | [phone] | | | +--------+ + + + [...] | | | Visit | | 160 [place], [place] | | | | | | [address] | | | | | | | [...]
--- OUTSIDE RECORDS SUMMARY | ~2020-02-15 | XMS | Encounter Summary ---
Demographics + + + | Address | [address] | | | [place] [address] | + + + | Home Phone [...] Samantha Ramos | ECON | [address] # | | | | | [place] | | | | | [address] | | + + + + + Care Team Providers + +------+ + | Care Sap Architect Name | Role | Phone | + +------+ + | Erich Yates PA-C | PCP | | + +------+ + Encounter Details +--------+ + + + + | Date | Type | Department | Care Team | Description | +--------+ + + + + | 01/22/ | Abstract | Digestive Health | Neri Steven MD | | | 2020 | | [place] at [facility] [address] | [address] | | | | | [address] | [address] [place], | | | | | Mailcode: [place] | [place] [address] | | | | | for Health and | [phone] | | | | | [facility] 2 | | | | | | [place], [place] | | | | | | [address] | | | | | | [phone] | | | +--------+ + + + [...]
--- OUTSIDE RECORDS SUMMARY | ~2020-02-15 | XMS | Encounter Summary ---
Demographics + + + | Address | [address] | | | [place] [address] | + + + | Home Phone [...] Samantha Ramos | ECON | [address] # | | | | | [place] | | | | | [address] | | + + + + + Care Team Providers + +------+ + | Care Meteorology Teacher Name | Role | Phone | [...] | Diabetic | Lashawn Tan, | [address] | | | | | gastroparesi | [address] | Elliott Nguyen | | | | | s (HCC) | DIAMANTE [facility] | Mailcode: | | | | | Procedures | Gurpreet Bautista | [facility] | | | | | CONSULT TO | Rd | Health and | | | | | SURGERY - | [place], [place] | Healing, | | | | | GENERAL | [address] | Building 2 | | | | | CONSULT TO | Phone: | [place], [place] | | | | | SURGERY - | [phone] | [address] | | | | | GENERAL | Fax: | Phone: | | | | | | [phone] | [phone] | | | | | | | Fax: | | | | | | | [phone] | +--------+--------+ + + + + Reason [...] | | | ogy | Abdominal | [facility], | [address] | | | | | pain | [place]icky N, | [address] | | | | | abdominal | DYE JIG OPERATOR [address] | Mailcode: | | | | | pain | Caro | [facility] | | | | | | [place] | [facility] and | | | | | | [address] | Healing, | | | | | | [place], | Building [address] | | | | | | [place] [address] | [place], [place] | | | | | | Phone: | [address] | | | | | | [phone] | Phone: | | | | | | Fax: | [phone] | | | | | | [phone] | Fax: | | | | | | | [phone] | +--------+--------+ + + + + Encounter Details +--------+---------+ + + + | Date | Type | Department | Care Team | Description | +--------+---------+ + + + | 07/02/ | Office | Digestive Health | Lashawn Joy, | Diabetic | | 2019 | Visit | Center at [facility] [address] | [address] [facility] | gastroparesis (HCC) | | | | Zee Nguyen | [address] | (Primary Dx); | | | | Mailcode: [place] | [place], [place] | Chronic diarrhea | | | | for Health and | [address] | | | | | [facility] 2 | [phone] | | | | | [place], [place] | | | | | | [address] | | | | | | [phone] | | | +--------+---------+ + + + [...] once the orders have been submitted to [facility]. Please do not hesitate to contact my office via phone or [facility] if you have any questions. Thank you! documented in this encounter Progress Notes Abdirizak Silva - 07/02/2019 1:05 PM PDTPatient presents for blood draw per Providers order Site: RIGHT A/C Time: 14:06 Patient tolerated well; ONE ATTEMPT Lashawn Torrez PA-C - 1:05 PM PDT cGastroenterology Initial Clinic Note 07/01/2019 CHIEF COMPLAINT/IDENTIFICATION: Brooks Maqruez II is a 28 y.o. male referred [...] is reported. SOCIAL HISTORY: Pt lives in [place], [place] with his mother. Not working. Smokes [...] but this may be difficult for [facility] to afford as it is not covered [...] Lashawn Joy PA-C [facility] [address] Mailcode: [place] [address] documented in this encounter Plan [...] [address] | [place] | [phone] | | EUN | | | | [...] [address] | [place] | [phone] | | EUN | | | | [...] - | [address] | [place], [place] | [phone] | | EUN | | | | [...] [address] | [place] | [phone] | | EUN | | | | [...] | + + + + + | Vocab | [address] | [place] [address] | | | SERVICES, CORE | ZENA [...] + | HASSAN - AIRPORT - | [address] | [place] [address] | | | [place] | | | | + + + [...] | | | LABORATORY | | | [facility] | | | SERVICES, | | | [...] | + + + + + | [facility] [employer] | [address] [facility] | [place] [address] | | | ZOEY DODD | ZENA [...] | + + + + + | [facility] | [address] | [place] [address] | | | SERVICES, CORE | ZENA [...]
--- OUTSIDE RECORDS SUMMARY | ~2020-02-15 | XMS | Encounter Summary ---
Demographics + + + | Address | [address] | | | [place] [address] | + + + | Home Phone [...] Samantha Ramos | ECON | [address] # | | | | | [place] | | | | | [address] | | + + + + + Care Team Providers + +------+ + | Care Equipment Service Lead Name | Role | Phone | [...] | Only | PPV [address] | COMPLIANCE PROJECT MANAGER [address] | | | | | [address] | [address] | | | | | Mailcode: PV430 | [place] [address] | | | | | [facility] | [phone] | | | | | [place], [place] | | | | | | [address] | | | | | | [phone] | | | +--------+ + + + [...]
--- OUTSIDE RECORDS SUMMARY | ~2020-02-15 | XMS | Encounter Summary ---
Demographics + + + | Address | [address] | | | [place] [address] | + + + | Home Phone [...] Samantha Ramos | ECON | [address] # | | | | | [place] | | | | | [address] | | + + + + + Care Team Providers + +------+ + | Care Pattern Lease Inspector Name | Role | Phone | [...] 10/09/ | Documentati | VERITO BUTLERU at [facility] | Lab, Gi Procedure | Medical Records | | 2020 | on | [address] | | Review | | | | [address] Mailcode: | | | | | | OC2L [facility] | | | | | | Health and Healing, | | | | | | Building 2 | | | | | | [place], [place] | | | | | | [address] | | | | | | [phone] | | | +--------+ + + + [...]
--- OUTSIDE RECORDS SUMMARY | ~2020-02-15 | XMS | Encounter Summary ---
Demographics + + + | Address | [address] | | | [place] [address] | + + + | Home Phone | | + + + | Preferred Language | Unknown | + + + | Marital Status | Single | + + + | Orthodox Affiliation | Unknown | + + + | Race | Unknown | + + + | Ethnic Group | Unknown | + + + Author + + + | Author | [facility] | | | and [place] | + + + | Organization | [facility] | | | [...] [place] | | | | | [address] | | + + + + + Care Team Providers + +------+ + | Care Lighting Equipment Operator Name | Role | Phone [...] | Services | ogy | Diabetic | [facility], | Greg Bernardo MD | | | Required | | gastroparesi | [place]icky, | [address] | | | | | s (HCC) | NEMATOLOGIST [address] | | | | | Malnutrition | [place], [place] | [address] | | | | | , | [address] [place] | [place], [place] | | | | | unspecified | [place] | [address] | | | | | type (HCC) | [address] | Phone: | | | | | Weight loss | Phone: | [phone] | | | | | | [phone] | Fax: | | | | | | Fax: | [phone] | | | | | | [phone] | | +--------+ + + + + [...] | [address] | [place], [place] [address] | (HCC) (Primary Dx); | | | | [address] [place], [place] | [place], [place] | Diabetic | | | | [address] | [address] | gastroparesis (HCC); | | | | [phone] | | Weight loss | +--------+ + [...] 2020 | Office | | [address] [facility] | | | | Visit | | [address] [place] | | | | | | [address] | | | | | | | [...] type | | | | | | ([facility]) Weight loss | | + [...]
--- OUTSIDE RECORDS SUMMARY | ~2020-02-15 | XMS | Encounter Summary ---
Demographics + + + | Address | [address] | | | [place] [address] | + + + | Home Phone [...] Samantha Ramos | ECON | [address] # | | | | | [place] | | | | | [address] | | + + + + + Care Team Providers + +------+ + | Care Commercial Pest Control Technician Name | Role | Phone | [...] | Procedural Unit at | MD Jerome [address] | | | | | Celestine [address] | [facility] | | | | | [address] | [place], [place] | | | | | Florencia Pederson, | [address] | | | | | 4th floor [place], | [phone] | | | | | [place] [address] | | | | | | [phone] | | | +--------+ + + + [...]
--- OUTSIDE RECORDS SUMMARY | ~2020-02-15 | XMS | Encounter Summary ---
Demographics + + + | Address | [address] | | | [place] [address] | + + + | Home Phone [...] [place] | | | | | [address] | | + + + + + Care Team Providers + +------+ + | Care Compact Assembler Name | Role | Phone | [...] + | 09/19/ | Surgery | [facility] | Tc Mora | CYSTOSCOPY W/ | | 2017 | | MED CTR OR INTRA OP | MD Boyd [address] | URETEROSCOPY W/ | | | | [address] | [place] | LASER LITHOTRIPSY | | | | [place] | [address] | WITH STENT PLACEMENT | | | | [address] | | | | | | [phone] | | | +--------+---------+ + + + [...] might be differ ent from the original. [facility] Urology Progress Note Brooks Marquez is [...] 2019 | Office | | [address] [facility] | | | | Visit | | [address] [place], [place] | | | | | | [address] | | | | | | | [...] ST. | [address] | [place], [place] | [phone] | | [facility] | | [address] | | | - LABORATORY | | [...] 2.16 (H) | 0.60 - 1.30 | [facility] | | | | | mg/dL [...] mL/min/1.73m2 | [facility] | | | [place] | RATE,ESTIMATED | | MEDICAL | | | | mL/min/1.52r8Wslb than | | CENTER - | | [...] + | [facility] | [address] | [place] | [phone] | | [facility] | | [address] | | | - LABORATORY | | [...] [address] | [place] | [phone] | | [facility] | | [address] | | | - LABORATORY | | [...] into the clinical context for interpretation. | [facility] | | | - LABORATORY | + + + + + + + + | Performing | Address | City/State/Zipcode | Phone Number | | Organization | | | | + + + + + | [facility] | [address] | [place] | [phone] | | [facility] | | [address] | | | - LABORATORY | | [...] ST. | [address] | [place] | [phone] | | [facility] | | [address] | | | - LABORATORY | | [...] - 1.030 | [facility] | | | [place], | | | [facility] | | [...] + | [facility] | [address] | [place] | [phone] | | [facility] | | [address] | | | - LABORATORY | | [...] [address] | [place] | [phone] | | [facility] | | [address] | | | - LABORATORY | | [...] [address] | [place] | [phone] | | [facility] | | [address] | | | - LABORATORY | | [...] + | [facility] | [address] | [place] | [phone] | | [facility] | | [address] | | | - LABORATORY | | [...] + | [facility] | [address] | [place] | [phone] | | [facility] | | [address] | | | - LABORATORY | | [...] not | 38 (L)Comment: | >=60 | [place] | | | | GLOMERULAR FILTRATION | mL/min/1.73m2 | [facility] | | | [place] | RATE,ESTIMATED | | MEDICAL | | | | mL/min/1.83w4Raou than | | CENTER - | | [...] | 8.7 | 8.3 - 10.5 | [facility] | | | | | mg/dL | [facility] | | | | [...] [address] | [place] | [phone] | | [facility] | | [address] | | | - LABORATORY | | [...] + | [facility] | [address] | [place] | [phone] | | [facility] | | [address] | | | - LABORATORY | | [...] MD | | | | | | (35[address]) on 09/21/2018 | | | | | [...] + | [facility] | [address] | [place] | [phone] | | [facility] | | [address] | | | - LABORATORY | | [...] [address] | [place] | [phone] | | [facility] | | [address] | | | - LABORATORY | | [...] (H) | 7 - 18 mg/dL | [facility] | | | | | | [facility] | | | | | | MEDICAL | | | | | | CENTER - | | | | | | LABORATORY | | + + + + + + | Creatinine | 1.90 (H) | 0.60 - 1.30 | [place] | | | | | mg/dL | [facility] | | | | | | MEDICAL | | | | | | CENTER - | | | | | | LABORATORY | | + + + + + + | eGFR if not | 42 (L)Comment: | >=60 | [place] | | | | GLOMERULAR FILTRATION | mL/min/1.73m2 | [facility] | | | [place] | RATE,ESTIMATED | | MEDICAL | | | | mL/min/1.43j7Izvz than | | CENTER - | | [...] + | [facility] | [address] | [place] | [phone] | | [facility] | | [address] | | | - LABORATORY | | [...] + | [facility] | [address] | [place] | [phone] | | [facility] | | [address] | | | - LABORATORY | | [...] (H) | 7 - 18 mg/dL | [facility] | | | | | | [facility] | | | | | | MEDICAL | | | | | | CENTER - | | | | | | LABORATORY | | + + + + + + | Creatinine | 1.93 (H) | 0.60 - 1.30 | [place] | | | | | mg/dL | [facility] | | | | | | MEDICAL | | | | | | CENTER - | | | | | | LABORATORY | | + + + + + + | eGFR if not | 42 (L)Comment: | >=60 | [place] | | | | GLOMERULAR FILTRATION | mL/min/1.73m2 | [facility] | | | U[place] | RATE,ESTIMATED | | MEDICAL | | | | mL/min/1.26v5Rxcw than | | CENTER - | | [...] + | [facility] | [address] | [place] | [phone] | | [facility] | | [address] | | | - LABORATORY | | [...] | | POC | | | [facility] | | | | | [...] [address] | [place] | [phone] | | [facility] | | [address] | | | - LABORATORY | | [...] + + + + | Color | Diaen | | REFERENCE | | | | [...] [facility] | | | | | | at:[phone]. | | | | + + + [...] | | | | | d by [facility]. It has not | | | | [...] Gaurav Ortiz, | REFERENCE LAB | | [place], [place] [address] Slip Presser: Sarabjit Love MD, Phone: | MICHELLE - CIERRA | | [phone] | | + + + + + + + + | Performing | Address | City/State/Zipcode | Phone Number | | Organization | | | | + + + + + | REFERENCE LAB | [address] | [place], [place] | [phone] | | [facility] | [facility] | [address] | | + + + + + [...] + | [facility] | [address] | [place] | [phone] | | [facility] | | [address] | | | - LABORATORY | | [...] | | | | | | | 7099-4311 Use NIGHT DOSE for | | | | | | | doses scheduled: HS, 3AM, | | | | | | | Nighttime 9712-8488, | | | | | | + [...]
--- OUTSIDE RECORDS SUMMARY | ~2020-02-15 | XMS | Encounter Summary ---
Demographics + + + | Address | [address] | | | [place] [address] | + + + | Home Phone [...] Samantha Ramos | ECON | [address] # | | | | | [place], [place] | | | | | [address] | | + + + + + Care Team Providers + +------+ + | Care Marina Sales And Service Supervisor Name | Role | Phone | [...] as of this encounter Progress Notes Interface, Thread Drawer In - 04/25/2005 12:43 AM [facility] [id number] [facility] Date: 09/30/2004 Clinic: [facility]PAT[facility]ES [facility]IN[facility] Subjective: Alin is an almost 14-year-old young boy with type 1 diabetes. The family is new to clinic, here to establish care for his ongoing diabetes management. Alin is usually followed by his primary care doctor, Dr. Mojica in [place]. The family does have several questions and are quite interactive in today's visit. Previous Diabetes Education: Alin was diagnosed with type 1 diabetes on April 2002, at that time, he was admitted to the hospital in [place], [place] where the family did receive initial [...] to the football practice. Meal Planning: The test data developer Shannon Early did meet with the family [...] also involved in football. In the fall, composition floor layer, Shannon Early, did meet with them also [...] soon starting to prepare for his driver medic's test. I discussed the importance of being [...] the family's first visit here to the [facility]. The family is interactive [...] Diabetes Team. Estefany Hathaway R.N. / CONTRERAS [id number] / [id number] / [id number] / [id number] CDRCP Electronically signed by Estefany Hathaway 10-05-2004 02:25:46 PM documented i n this encounter Plan of Treatment Not on filedocumented as of this encounter Visit Diagnoses Not on filedocumented in this encounter
--- OUTSIDE RECORDS SUMMARY | ~2020-02-15 | XMS | Encounter Summary ---
Demographics + + + | Address | [address] | | | [place] [address] | + + + | Home Phone [...] Samantha Ramos | ECON | [address] # | | | | | [place], [place] | | | | | [address] | | + + + + + [...] Rd | | | | | | [place], [place] | | | | | | [address] | | | | | | [phone] | | | | | | | [...] DEPARTMENT OF | [address] | [place] [address] | | | PATHOLOGY | [address] | | | + + + + + | [facility] DEPARTMENT OF | [address] | [place] [address] | | | PATHOLOGY | [address] [...] | + + + + + | [facility] | [address] [facility] | [place] [address] | | | PATHOLOGY | [address] | | | + + + + + | [facility] | [address] [facility] | [place] [address] | | | PATHOLOGY | [address] [...] DEPARTMENT OF | [address] | [place] [address] | | | PATHOLOGY | [address] | | | + + + + + | [facility] DEPARTMENT OF | [address] | [place] [address] | | | PATHOLOGY | [address] [...] [place] DEPARTMENT OF | [address] [facility] | [place] [address] | | | PATHOLOGY | [address] | | | + + + + + | [facility] DEPARTMENT OF | [address] [facility] | [place] [address] | | | PATHOLOGY | [address] [...] + + + + | [facility] DEPARTMENT OF | [address] | [place] [address] | | | PATHOLOGY | [address] | | | + + + + + | [facility] DEPARTMENT OF | [address] | [place] [address] | | | PATHOLOGY | [address] [...] Performed At | + + + | [id number] CALCIUM Checked and phoned. | [facility] | | | DEPARTMENT OF | | | PATHOLOGY | + + + + + + + + | Performing | Address | City/State/Zipcode | Phone Number | | Organization | | | | + + + + + | [facility] DEPARTMENT OF | [address] | [place] [address] | | | PATHOLOGY | [address] | | | + + + + + | [facility] DEPARTMENT OF | [address] | [place] [address] | | | PATHOLOGY | [address] | | | + + + + + CHEMISTRY MASTER PANEL (12/03/2002 6:00 AM PST) + + | Specimen | + + | | + + + + + | Narrative | Performed At | + + + | [id number] CALCIUM Checked and phoned. | [facility] | | | DEPARTMENT OF | | | PATHOLOGY | + + + + + + + + | Performing | Address | City/State/Zipcode | Phone Number | | Organization | | | | + + + + + | [facility] DEPARTMENT OF | [address] | [place] [address] | | | PATHOLOGY | [address] | | | + + + + + | [facility] DEPARTMENT OF | [address] | [place] [address] | | | PATHOLOGY | [address] [...] DEPARTMENT OF | [address] | [place] [address] | | | PATHOLOGY | [address] | | | + + + + + | [facility] DEPARTMENT OF | [address] | [place] [address] | | | PATHOLOGY | [address] | | | + + + + + MAGNESIUM, PLASMA (12/03/2002 2:20 AM PST) + +-------+ + + + | Component | Value | Ref Range | Performed | Pathologist | | | | | At | Signature | + +-------+ + + + | MAGNESIUM,P | 1.9 | 1.8 - 2.5 mg/dL | [facility] | | | LASMA | | | [...] | + + + + + | [facility] | [address] | [place] [address] | | | PATHOLOGY | [address] | | | + + + + + | [facility] | [address] | [place] [address] | | | PATHOLOGY | [address] [...] DEPARTMENT OF | [address] | [place] [address] | | | PATHOLOGY | [address] | | | + + + + + | [facility] DEPARTMENT OF | [address] | [place] [address] | | | PATHOLOGY | [address] [...] | + + + + + | [facility] | [address] [facility] | [place] [address] | | | PATHOLOGY | [address] | | | + + + + + | [facility] | [address] [facility] | [place] [address] | | | PATHOLOGY | [address] [...] | | | | Test performed by [facility] | | | | | | [facility] | | | | | | Danii. | | | | + + + + + + + + | Specimen | + + | | + + + + + + + | Performing | Address | City/State/Zipcode | Phone Number | | Organization | | | | + + + + + | [facility] | [address] | [place] [address] | | | LABORATORY | | | [...] + + + + | [facility] DEPARTMENT OF | [facility] | [place] [address] | | | PATHOLOGY | [address] | | | + + + + + | [facility] DEPARTMENT OF | [facility] [address] | [place] [address] | | | PATHOLOGY | [address] [...] Performed At | + + + | [id number] Checked and phoned. CO2 [id number] Checked and phoned. | [facility] | | | DEPARTMENT OF | | | PATHOLOGY | + + + + + + + + | Performing | Address | City/State/Zipcode | Phone Number | | Organization | | | | + + + + + | [facility] DEPARTMENT OF | [address] | [place] [address] | | | PATHOLOGY | [address] | | | + + + + + | [facility] DEPARTMENT OF | [address] | [place] [address] | | | PATHOLOGY | [address] | | | + + + + + MAGNESIUM, PLASMA (12/02/2002 6:45 PM PST) + +-------+ + + + | Component | Value | Ref Range | Performed | Pathologist | | | | | At | Signature | + +-------+ + + + | MAGNESIUM,P | 1.8 | 1.8 - 2.5 mg/dL | [facility] | | | LASMA | | | DEPARTMENT | | | | | | OF | | | | | | PATHOLOGY | | + +-------+ + + + + + | Specimen | + + | | + + + + + | Narrative | Performed At | + + + | [id number] Checked and phoned. CO2 [id number] Checked and phoned. | [facility] | | | DEPARTMENT OF | | | PATHOLOGY | + + + + + + + + | Performing | Address | City/State/Zipcode | Phone Number | | Organization | | | | + + + + + | [facility] DEPARTMENT OF | [address] | [place] [address] | | | PATHOLOGY | [address] | | | + + + + + | [facility] DEPARTMENT OF | [address] | [place] [address] | | | PATHOLOGY | [address] | | | + + + + + PHOSPHORUS, PLASMA (12/02/2002 6:45 PM PST) + +-------+ + + + | Component | Value | Ref Range | Performed | Pathologist | | | | | At | Signature | + +-------+ + + + | PHOSPHORUS, | 3.0 | 2.5 - 5.0 mg/dL | [facility] | | | PLASMA | | | DEPARTMENT | | | (LAB) | | | OF | | | | | | PATHOLOGY | | + +-------+ + + + + + | Specimen | + + | | + + + + + | Narrative | Performed At | + + + | [id number] Checked and phoned. CO2 [id number] Checked and phoned. | [facility] | | | DEPARTMENT OF | | | PATHOLOGY | + + + + + + + + | Performing | Address | City/State/Zipcode | Phone Number | | Organization | | | | + + + + + | [facility] DEPARTMENT OF | [address] [facility] | [place] [address] | | | PATHOLOGY | [address] | | | + + + + + | [facility] DEPARTMENT OF | [address] [facility] | [place] [address] | | | PATHOLOGY | [address] | | | + + + + + CHEMISTRY MASTER PANEL (12/02/2002 6:45 PM PST) + + | Specimen | + + | | + + + + + | Narrative | Performed At | + + + | [id number] Checked and phoned. [id number] Checked and phoned. | [facility] | | | DEPARTMENT OF | | | PATHOLOGY | + + + + + + + + | Performing | Address | City/State/Zipcode | Phone Number | | Organization | | | | + + + + + | [facility] DEPARTMENT OF | [facility] | [place] [address] | | | PATHOLOGY | [address] | | | + + + + + | [place] DEPARTMENT OF | [facility] | [place] [address] | | | PATHOLOGY | [address] | | | + + + + + documented in this encounter Visit Diagnoses Not on filedocumented in this encounter"
--- OUTSIDE RECORDS SUMMARY | ~2020-02-15 | XMS | Clinical Summary ---
Demographics + + + | Address | [address] [facility] [address] | | | [place] [address] | + + + | Home Phone | | + + + | Preferred Language | Unknown | + + + | Marital Status | Unknown | + + + | Jainism Affiliation | Unknown | + + + | Race | Unknown | + + + | Ethnic Group | Unknown | + + + Author + + + | Author | [facility] (Historical as of | | | 05-12-19) | + + + | Organization | [facility] (Historical as of | | | 05-12-19) [...] Team Providers + +------+ + | Care Record Clerk Name | Role | Phone | [...] | CKD (chronic kidney disease), stage III ([facility]) | 01/15/2019 | + + + | [...] +------+-------+ + | MEDICAID | [place] | [id number] | | | [address] | | | N | | | | [place], [place] | | | [place] | | | | [address] | | | SCHOOL N[employer]SE | | | | | + +--------+ [...] Self | [birth year] Home: | [address] | | | al/Fam | | 1990 | [phone] [address] [place], | | | [place] | | | [address] | [place] [address] | + +--------+ +--------+ + +
--- OUTSIDE RECORDS SUMMARY | ~2020-02-15 | XMS | Encounter Summary ---
Demographics + + + | Address | [address] | | | [place] [address] | + + + | Home Phone [...] Samantha Ramos | ECON | [address] # | | | | | [place], [place] | | | | | [address] | | + + + + + Care Team Providers + +------+ + | Care Mft Name | Role | Phone | + [...] as of this encounter Progress Notes Interface, Oil Well Cable Tool Operator In - 04/25/2005 2:09 AM PDT [id number] 12/11/2004 12/11/2004 [id number] NAHOMY Durbin [facility] [address] [place], [place] [address] or December 11, 2004 Neri Mojica MD [address], [place] [address] RE: BROOKS MARQUEZ II MR #: [id number] Dear Dr. Mojica: I reviewed Brooks in Endocrine Clinic today. This is his second visit our clinic, having established care here in September. To recap, he was diagnosed with type 1 diabetes in April 2002 and initially received his education in [facility]. He has been followed by yourself until [...] at this present time, although I did business and financial counsel him that this would be optimal to [...] months' time. Yours sincerely, Ashanti Roque M.D. Hotel Service Supervisor, Pediatric Endocrinology / [id number] / [id number] / [id number] / documented i n this encounter Plan of Treatment Not on filedocumented as of this encounter Visit Diagnoses Not on filedocumented in this encounter"
--- OUTSIDE RECORDS SUMMARY | ~2020-02-15 | XMS | Encounter Summary ---
Demographics + + + | Address | [address] | | | [place] [address] | + + + | Home Phone [...] Samantha Ramos | ECON | [address] # | | | | | [place] | | | | | [address] | | + + + + + Care Team Providers + +------+ + | Care Deputy Sheriff Lieutenant Name | Role | Phone | [...] | | | | | Procedures | [place], [place] | floor | | | | | CONSULT TO | [address] | [place], [place] | | | | | GI PROCEDURE | Phone: | [address] | | | | | UNIT: EGD | [phone] | Phone: | | | | | | Fax: | [phone] | | | | | | [phone] | Fax: | | | | | | | [phone] | + +--------+ + + + + [...] Ave | | | | | s ([facility]) | [facility] | Mailcode: | | | | | Procedures | [facility] | Center for | | | | | CONSULT TO | Rd | Health and | | | | | SURGERY - | [facility], [place] | [facility], | | | | | GENERAL | [address] | Building 2 | | | | | CONSULT TO | Phone: | [place], [place] | | | | | SURGERY - | [phone] | [address] | | | | | GENERAL | Fax: | Phone: | | | | | | [phone] | [phone] | | | | | | | Fax: | | | | | | | [phone] | +--------+--------+ + + + + Encounter [...] | | | [address] | [place], [place] | (Primary Dx) | | | | Mailcode: [place] | [address] | | | | | for Health and | [phone] | | | | | [facility] 2 | | | | | | [facility] [place] | | | | | | [address] | | | | | | [phone] | | | +--------+---------+ + + + [...] might be different fr om the original. [facility] Department of Surgery [facility] [...] was mildly elevated but no evidence of [place]. V/Q was neg f or PE. Functional [...] gastroparesis seen [place] GASTRIC EMPTYING STUDY Order: [id number] Status: Final result Visible to patient: No [...] t he above plan. Silke Flores MD [facility] [place] [facility] Pager #[phone] STAFF: A resident assisted with documenting this [...]
--- OUTSIDE RECORDS SUMMARY | ~2020-02-15 | XMS | Encounter Summary ---
Demographics + + + | Address | [address] | | | [place] [address] | + + + | Home Phone [...] Samantha Ramos | ECON | [address] # | | | | | [place] | | | | | [address] | | + + + + + Care Team Providers + +------+ + | Care Balloon Dipper Name | Role | Phone | [...] | | | | | diabetes | [place], [place] | floor | | | | | mellitus | [address] | [place], [place] | | | | | (HCC) | Phone: | [address] | | | | | Procedures | [phone] | Phone: | | | | | CONSULT TO | Fax: | [phone] | | | | | ENDOSCOPY | [phone] | Fax: | | | | | UNIT: EGD | | [phone] | + +--------+ + + + + [...] | | 2020 | | Center at [facility] [address] | [address] [facility] | | | | | Zee Nguyen | [address] [place], | | | | | Mailcode: [place] | [place] [address] | | | | | for Health and | [phone] | | | | | [facility] 2 | | | | | | [place], [place] | | | | | | [address] | | | | | | [phone] | | | +--------+ + + + [...]
--- OUTSIDE RECORDS SUMMARY | ~2020-02-15 | XMS | Encounter Summary ---
Demographics + + + | Address | [address] | | | [place] [address] | + + + | Home Phone [...] Samantha Ramos | ECON | [address] # | | | | | [place] | | | | | [address] | | + + + + + Care Team Providers + +------+ + | Care Print Support Specialist Name | Role | Phone | [...] 10/09/ | Documentati | VERITO BUTLERU at [facility] | Lab, Gi Procedure | Medical Records | | 2020 | on | [facility] [address] | | Review | | | | [address] Mailcode: | | | | | | [facility] | | | | | | Health and Healing, | | | | | | Building 2 | | | | | | [place], [place] | | | | | | [address] | | | | | | [phone] | | | +--------+ + + + [...]
--- OUTSIDE RECORDS SUMMARY | ~2020-02-15 | XMS | Encounter Summary ---
Demographics + + + | Address | [address] | | | [place] [address] | + + + | Home Phone [...] Samantha Ramos | ECON | [address] # | | | | | [place] | | | | | [address] | | + + + + + Care Team Providers + +------+ + | Care Automatic Profile Sander Operator Name | Role | Phone | + +------+ + | Erich Yates PA-C | PCP | | + +------+ + Encounter Details +--------+ + + + + | Date | Type | Department | Care Team | Description | +--------+ + + + + | 10/11/ | Transcribe | [facility] | Transcribe | | | 2020 | Orders | [facility] [address] | Encounter, Provider, | | | | | Elliott Nguyen Mailcode: | [address] | | | | | [facility] Center for | [place] [address] | | | | | Health and Healing, | | | | | | Building 2 | | | | | | [place], [place] | | | | | | [address] | | | | | | [phone] | | | +--------+ + + + [...] mellitus | | | | | | ([facility]) | | +------+ +--------+ + + documented as of this encounter Visit Diagnoses + + | Diagnosis | + + | Diabetic gastroparesis associated with type 1 diabetes mellitus (HCC) - Primary | + + documented in this encounter"
--- OUTSIDE RECORDS SUMMARY | ~2020-02-15 | XMS | Encounter Summary ---
Demographics + + + | Address | [address] | | | [place] [address] | + + + | Home Phone [...] Samantha Ramos | ECON | [address] # | | | | | [place] | | | | | [address] | | + + + + + Care Team Providers + +------+ + | Care Fruit Or Nut Farmer Name | Role | Phone | [...] Pharmacy | | | | | | [address] | | | | | | [place], [place] | | | | | | [address] | | | | | | [phone] | | | +--------+ + + + [...]
--- OUTSIDE RECORDS SUMMARY | ~2020-02-15 | XMS | Encounter Summary ---
Demographics + + + | Address | [address] | | | [place] [address] | + + + | Home Phone [...] Samantha Ramos | ECON | [address] # | | | | | [place] | | | | | [address] | | + + + + + Care Team Providers + +------+ + | Care Unix Manager Name | Role | Phone | [...] | | | | Mailcode: Center | [place], [place] | | | | | for Health and | [address] | | | | | [facility], [facility] 2 | [phone] | | | | | [place], [place] | | | | | | [address] | | | | | | [phone] | | | +--------+ + + + [...] - | [address] | [place], [place] | [phone] | | [place] | | | | [...] + | [facility] - | [address] | [place] | [phone] | | [place]UN | | | | [...] + + | [facility] - | [address] | [place] | [phone] | | [place] | | | | [...] + + | [facility] - | [address] | [place], [place] | [phone] | | [place] | | | | + + + + + documented in this encounter Visit Diagnoses + + | Diagnosis | + + | Chronic diarrhea Diarrhea | + + documented in this encounter"
--- OUTSIDE RECORDS SUMMARY | ~2020-02-15 | XMS | Encounter Summary ---
Demographics + + + | Address | [address] | | | [place] [address] | + + + | Home Phone [...] Samantha Ramos | ECON | [address] # | | | | | [place] | | | | | [address] | | + + + + + Care Team Providers + +------+ + | Care Credit Control Administrator Name | Role | Phone | [...] [address] | | | | | [place], [place] | [place], [place] | | | | | [address] | [address] | | | | | [phone] | [phone] | | | | | | | [...] | | | SERUM | performed by [facility] | | | | | | Permanente [...] + + | [facility] | [address] | [place] [address] | | | LABORATORY | | | [...] + + | [facility] | [address] | [place] [address] | | | LABORATORY | | | | + + + + + documented in this encounter Visit Diagnoses Not on filedocumented in this encounter"
--- OUTSIDE RECORDS SUMMARY | ~2020-02-15 | XMS | Encounter Summary ---
Demographics + + + | Address | [address] | | | [place] [address] | + + + | Home Phone [...] Samantha Ramos | ECON | [address] # | | | | | [place] | | | | | [address] | | + + + + + Care Team Providers + +------+ + | Care Financial Reporting Director Name | Role | Phone | [...] | 2019 | | Center at [facility] 34[address] | [address] | Review | | | | Zee Nguyen | [address] | | | | | Mailcode: Center | [place], [place] | | | | | [facility] and | [address] | | | | | [facility] 2 | [phone] | | | | | [place], [place] | | | | | | [address] | | | | | | [phone] | | | +--------+ + + + [...]
--- OUTSIDE RECORDS SUMMARY | ~2020-02-15 | XMS | Encounter Summary ---
Demographics + + + | Address | [address] | | | [place] [address] | + + + | Home Phone [...] Samantha Ramos | ECON | [address] # | | | | | [place] | | | | | [address] | | + + + + + Care Team Providers + +------+ + | Care Events Manager Name | Role | Phone | + +------+ + | Erich Yates PA-C | PCP | | + +------+ + Encounter Details +--------+ + + + + | Date | Type | Department | Care Team | Description | +--------+ + + + + | 01/22/ | Abstract | Digestive Health | Neri Steven MD | | | 2020 | | [place] at [facility] [address] | [address] | | | | | [address]ee Nguyen | Lily [address] [place], | | | | | Mailcode: [place] | [place] [address] | | | | | for Health and | [phone] | | | | | [facility], [facility] 2 | | | | | | [place], [place] | | | | | | [address] | | | | | | [phone] | | | +--------+ + + + [...]
--- OUTSIDE RECORDS SUMMARY | ~2020-02-15 | XMS | Encounter Summary ---
Demographics + + + | Address | [address] | | | [place] [address] | + + + | Home Phone [...] [place] | | | | | [address] | | + + + + + Care Team Providers + +------+ + | Care Interpretive Program Coordinator Name | Role | Phone | [...] [address] | | | | | [place], [place] | [place], [place] | | | | | [address] | [address] | | | | | [phone] | [phone] | | | | | | | [...] | | | SERUM | performed by [place] | | | | | | Permanente [...] + + + + + | [facility] | [address] | [place] [address] | | | LABORATORY | | | [...] + + + + + | [facility] | [address] | [place] [address] | | | LABORATORY | | | | + + + + + documented in this encounter Visit Diagnoses Not on filedocumented in this encounter"
--- OUTSIDE RECORDS SUMMARY | ~2020-02-15 | XMS | Encounter Summary ---
Demographics + + + | Address | [address] | | | [place] [address] | + + + | Home Phone [...] [place] | | | | | [address] | | + + + + + Care Team Providers + +------+ + | Care Shipwright Name | Role | Phone | + [...] | | complication | [place], | [place] [address] | | | | | s ([facility]) | [place] [address] | Phone: | | | | | Unspecified | Phone: | [phone] | | | | | abdominal | [phone] | Fax: | | | | | pain | Fax: | [phone] | | | | | Functional | [phone] | | | | | | intestinal [...] [address] | [place], [address] | (Primary Dx); Weight | | | | [address] [place], [place] | [place], [place] | loss; Malnutrition, | | | | [address] | [address] | unspecified type | | | | [phone] | | ([facility]); 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 Patient significantly malnourished due [...] 2020 | Office | | [address] [facility] | | | | Visit | | [facility] | | | | | [address] | | | | | | | [...]
--- OUTSIDE RECORDS SUMMARY | ~2020-02-15 | XMS | Encounter Summary ---
Demographics + + + | Address | [address] | | | [place] [address] | + + + | Home Phone [...] [place] | | | | | [address] | | + + + + + Care Team Providers + +------+ + | Care Party Host Name | Role | Phone | [...] + + | 09/19/ | Hospital | [facility] | Tc Mora | Right ureteral | | 2018 - | Encounter | [facility] | MD [address] [place] | stone; Acute kidney | | | | [address] | [address] [place] [address] | injury (HCC); Flank | | 09/20/ | | [place] [address] | [address] | pain; | | 2017 | | [phone] | | Hydronephrosis, | | | | [...] ent from the original. [facility] Urology Progress Note Brooks Marquez [...] 2019 | Office | | [address] [facility] | | | | Visit | | [address] [place], [place] | | | | | | [address] | | | | | | | [...] [address] | [place] | [phone] | | [facility] | | [address] | | | - LABORATORY | | [...] (H) | 7 - 18 mg/dL | [facility] | | | | | | [facility] | | | | | | MEDICAL | | | | | | CENTER - | | | | | | LABORATORY | | + + + + + + | Creatinine | 2.16 (H) | 0.60 - 1.30 | [facility] | | | | | mg/dL | [facility] | | | | | | MEDICAL | | | | | | CENTER - | | | | | | LABORATORY | | + + + + + + | eGFR if not | 37 (L)Comment: | >=60 | [facility] | | | | GLOMERULAR FILTRATION | mL/min/1.73m2 | [facility] | | | [place] | RATE,ESTIMATED | | MEDICAL | | | | mL/min/1.58l2Pseo than | | CENTER - | | [...] + | [facility] | [address] | [place] | [phone] | | [facility] | | [address] | | | - LABORATORY | | [...] | , Urine | | | [facility] | | | | | | [...] + | [facility] | [address] | [place] | [phone] | | [facility] | | [address] | | | - LABORATORY | | [...] clinical context for interpretation. | [facility] | | | - LABORATORY | + + + + + + + + | Performing | Address | City/State/Zipcode | Phone Number | | Organization | | | | + + + + + | [facility] | [address] | [place] | [phone] | | [facility] | | [address] | | | - LABORATORY | | [...] [address] | [place] | [phone] | | [facility] | | [address] | | | - LABORATORY | | [...] - 1.030 | [facility] | | | [place], | | | [facility] | | [...] [address] | [place] | [phone] | | [facility] | | [address] | | | - LABORATORY | | [address] | [place] | [phone] | | [facility] | | [address] | | | - LABORATORY | | [...] [address] | [place] | [phone] | | [facility] | | [address] | | | - LABORATORY | | [...] | | | POC | | | [facility] | | | | | | [...] + | [facility] | [address] | [place] | [phone] | | [facility] | | [address] | | | - LABORATORY | | [...] ST. | [address] | [place] | [phone] | | [facility] | | [address] | | | - LABORATORY | | [...] 2.07 (H) | 0.60 - 1.30 | [facility] | | | | | mg/dL | [facility] | | | | | | MEDICAL | | | | | | CENTER - | | | | | | LABORATORY | | + + + + + + | eGFR if not | 38 (L)Comment: | >=60 | [facility] | | | | GLOMERULAR FILTRATION | mL/min/1.73m2 | [facility] | | | [place] | RATE,ESTIMATED | | MEDICAL | | | | mL/min/1.41r2Wioy than | | CENTER - | | [...] + | [facility] | [address] | [place] | [phone] | | [facility] | | [address] | | | - LABORATORY | | [...] + | [facility] | [address] | [place] | [phone] | | [facility] | | [address] | | | - LABORATORY | | [...] MD | | | | | | ([id number]) on 09/21/2018 | | | | | [...] + | [facility] | [address] | [place] | [phone] | | [facility] | | [address] | | | - LABORATORY | | [...] [address] | [place] | [phone] | | [facility] | | [address] | | | - LABORATORY | | [...] 1.90 (H) | 0.60 - 1.30 | [facility] | | | | | mg/dL | [facility] | | | | | | MEDICAL | | | | | | CENTER - | | | | | | LABORATORY | | + + + + + + | eGFR if not | 42 (L)Comment: | >=60 | [facility] | | | | GLOMERULAR FILTRATION | mL/min/1.73m2 | [facility] | | | [place] | RATE,ESTIMATED | | MEDICAL | | | | mL/min/1.69o6Qlmk than | | CENTER - | | [...] [address] | [place] | [phone] | | [facility] | | [address] | | | - LABORATORY | | [...] | | POC | | | [facility] | | | | | | [...] + | [facility] | [address] | [place], [place] | [phone] | | [facility] | | [address] | | | - LABORATORY | | [...] mL/min/1.73m2 | [facility] | | | [place] | RATE,ESTIMATED | | MEDICAL | | | | mL/min/1.40d6Bhge than | | CENTER - | | [...] + | [facility] | [address] | [place] | [phone] | | [facility] | | [address] | | | - LABORATORY | | [...] [address] | [place] | [phone] | | [facility] | | [address] | | | - LABORATORY | | [...] [facility] | | | | | | at:[phone]. | | | | + + + [...] | | | | | d by [facility]. It has not | | | | [...] Gaurav Ortiz, | REFERENCE LAB | | [place], [place] [address] Supervisor Aluminum Boat Assembly: Sarabjit Love MD, Phone: | [place] [place] | | [phone] | | + + + + + + + + | Performing | Address | City/State/Zipcode | Phone Number | | Organization | | | | + + + + + | REFERENCE LAB | [address] | [place], [place] | [phone] | | [facility] | [place] | [address] | | + + + + + [...] [address] | [place] | [phone] | | [facility] | | [address] | | | - LABORATORY | | [...] | | | | | | | 8829-3268 Use NIGHT DOSE for | | | | | | | doses scheduled: HS, 3AM, | | | | | | | Nighttime 9957-4645, | | | | | | + [...]
--- OUTSIDE RECORDS SUMMARY | ~2020-02-15 | XMS | Encounter Summary ---
Demographics + + + | Address | [address] | | | [place] [address] | + + + | Home Phone [...] Samantha Ramos | ECON | [address] # | | | | | [place] | | | | | [address] | | + + + + + Care Team Providers + +------+ + | Care Ham Pumper Name | Role | Phone | + +------+ + | Neri Mojica MD | PCP | | + +------+ + Encounter Details +--------+ + + + + | Date | Type | Department | Care Team | Description | +--------+ + + + + | 07/16/ | Documentati | Orthopaedics at | Neri Mcgarry, | | | 2005 | on | [address] | [address] | | | | | [address] | [address] | | | | | Mailcode: [address] | [facility] [place] | | | | | [facility] | [address] | | | | | [place], [place] | [phone] | | | | | [address] | | | | | | [phone] | | | +--------+ + + + [...]
--- OUTSIDE RECORDS SUMMARY | ~2020-02-15 | XMS | Encounter Summary ---
Demographics + + + | Address | [address] | | | [place] [address] | + + + | Home Phone [...] Samantha Ramos | ECON | [address] # | | | | | [place] | | | | | [address] | | + + + + + Care Team Providers + +------+ + | Care Public Works Inspector Name | Role | Phone | [...] Center at [facility] 3485 | PA-C [address] [facility] | results | | | | [address] | [address] | | | | | Mailcode: Center | [place], [place] | | | | | [facility] and | [address] | | | | | [facility], [facility] 2 | [phone] | | | | | [place], [place] | | | | | | [address] | | | | | | [phone] | | | +--------+ + + + [...]
--- OUTSIDE RECORDS SUMMARY | ~2020-02-15 | XMS | Encounter Summary ---
Demographics + + + | Address | [address] | | | [place] [address] | + + + | Home Phone [...] Samantha Ramos | ECON | [address] # | | | | | [place] | | | | | [address] | | + + + + + Care Team Providers + +------+ + | Care Weapons Electrical Engineering Officer Name | Role | Phone | [...] | | | | | diabetes | [place], [place] | floor | | | | | mellitus | [address] | [place], [place] | | | | | ([facility]) | Phone: | [address] | | | | | Procedures | [phone] | Phone: | | | | | CONSULT TO | Fax: | [phone] | | | | | GI PROCEDURE | [phone] | Fax: | | | | | UNIT: EGD | | [phone] | + +--------+ + + + + Encounter Details +--------+ + + + + | Date | Type | Department | Care Team | Description | +--------+ + + + + | 08/16/ | Dry Cell Sealer | Digestive Health | Beth Mondragon, | Diabetic | | 2019 | | Center at [facility] [address] | ANP [address] [employer] | gastroparesis | | | | [address] | [address] | associated with type | | | | Mailcode: Center | [place], [place] | 1 diabetes mellitus | | | | for Health and | [address] | ([facility]) (Primary Dx) | | | | [facility] 2 | [phone] | | | | | [place], [place] | | | | | | [address] | | | | | | [phone] | | | +--------+ + + + [...]
--- OUTSIDE RECORDS SUMMARY | ~2020-02-15 | XMS | Encounter Summary ---
Demographics + + + | Address | [address] | | | [place] [address] | + + + | Home Phone [...] [place] | | | | | [address] | | + + + + + Care Team Providers + +------+ + | Care Station Mechanic Apprentice Name | Role | Phone [...] + + | 06/09/ | Hospital | [facility] | Diony Hollis, | | | 2019 - | Encounter | [facility] | [address] | | | | | CARE FLOOR [address] | [place] [address] | | | 06/10/ | | [address] | [phone] | | | 2019 | | [place], [place] | | | | | | [address] | Solomon Jonas MD [address] | | | | | [phone] | [address] | | | | | | [place] [address] | | | | | | [phone] | | | | | | | | | | | | Jannette Spears MD | | | | | | [address] | | | | | | [place] [address] | | | | | | [phone] | | | | | | | | | | | | Andrey Gatica DO | | | | | | [address] | | | | | | [place] [address] | | | | | | [phone] | | | | | | | [...] note might be different from rolando hercules. [facility] MEDICAL HOSPITALIST TEAM Patient leave AGAINST MEDICAL ADVICE documentation Pt. Name/Age/: Brooks Marquez 28 y.o. 1990 Date of Admission: 06/09/2019 Date of leaving hospital AGAINST MEDICAL ADVICE: 2018 PCP: Erich Yates Note teletypewriter operator provider: Solomon Jonas MD HPI/Reason for Admission:-Chest pain with elevated troponin Hospital course, including complications: 28 years old gentleman with type 1 diabetes with renal complication and gastroparesis hyper tension chronic kidney disease stage III, chronic pain on narcotics status post right BKA fo r necrotizing fasciitis October 2018 transferred to [facility] for anup st pain and elevated troponin Associated symptoms are diarrhea ongoing for which he stated as a chronic at 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 prov 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[place] and EGD with history of gastric ulcers He also have gastropathy which was documented in [facility] by gastric emptying study in 2004 by [...] insulin IV morphine and tra nsferred to [facility] due to elevated troponin EKG shows sinus tachycardia no acute ischemic brown e repeat troponin at [facility] was unremarkable by record [...] scheduled gastroenterology appointment in June at [facility] for p ossible gastric [...] both patient and mother requesting to leave [facility] MED[facility] ADVICE before I have a [...] 06/10/2019 4:55 AM PDTPt transferred from [facility]. Admitted by Dr. Ramakrishna Spears. Ewa grier called at approximated 1307 as patient was getting very agitated and [...] 2019 | Office | | [address] [facility] | | | | Visit | | [address] [place], [place] | | | | | | [address] | | | | | | | [...] | Chneg, Rad Results In - 06/10/2019 10:15 AM [...] | | | POC | performed at [facility];[address] | | LABORATORY | | | | [address];[place], [place] | | | | | | [address] | | | | + + + + + + + + | Specimen | + + | | + + + + + + + | Performing | Address | City/State/Zipcode | Phone Number | | Organization | | | | + + + + + | [facility] | [address] | [place] [address] | [phone] | + + + + + Troponin I (06/10/2019 5:58 AM PDT) + + + + + + | Component | Value | Ref Range | Performed | Pathologist | | | | | At | Signature | + + + + + + | Troponin I | <0.006Comment: 0.04 | 0.00 - 0.04 | [facility] | | | | ng/mL or [...] at | | | | | | [facility];[address] | | | | | | [facility];[place] [address] | | | | + + + + + + + + | Specimen | + + | | + + + + + + + | Performing | Address | City/State/Zipcode | Phone Number | | Organization | | | | + + + + + | [facility] | [address] | [place] [address] | [phone] | + + + + + Hemoglobin A1C (06/10/2019 5:58 AM PDT) + + + + + + | Component | Value | Ref Range | Performed | Pathologist | | | | | At | Signature | + + + + + + | Hemoglobin | 8.8 (H)Comment: HbA1c | 4.0 - 6.0 % | [facility] | | | A1c | method [...] | 206 (H)Comment: | <154 mg/dL | [facility] | | | Average | Estimated Average | | LABORATORY | | | Glucose | Glucose calculated from | | | | | | hemoglobin A1c by use of | | | | | | the ADArecommended | | | | | | formula.Testing | | | | | | performed at [facility], [address] | | | | | | [facility], | | | | | | [place] [address] | | | | + + + + + + + + | Specimen | + + | Blood | + + + + + + + | Performing | Address | City/State/Zipcode | Phone Number | | Organization | | | | + + + + + | [facility] | [address] | [place] [address] | [phone] | + + + + + TSH (06/10/2019 5:58 AM PDT) + + + + + + | Component | Value | Ref Range | Performed | Pathologist | | | | | At | Signature | + + + + + + | TSH | 0.811Comment: Testing | 0.450 - 5.100 | [facility] | | | | performed at [facility];[address] | uIU/mL | LABORATORY | | | | [address];[place] | | | | | | [address] | | | | + + + + + + + + | Specimen | + + | Blood | + + + + + + + | Performing | Address | City/State/Zipcode | Phone Number | | Organization | | | | + + + + + | [facility] | [address] | [place] [address] | [phone] | + + + + + Basic [...] | | | | | performed at [facility];[address] | | | | | | [address];[place] | | | | | | [address] | | | | + + + + + + + + | Specimen | + + | Blood | + + + + + + + | Performing | Address | City/State/Zipcode | Phone Number | | Organization | | | | + + + + + | [facility] | [address] | [place] [address] | [phone] | + + + + + CBC [...] [facility] | | | | performed at [facility];[address] | | LABORATORY | | | | [address];[place], [place] | | | | | | [address] | | | | + + + + + + + + | Specimen | + + | Blood | + + + + + + + | Performing | Address | City/State/Zipcode | Phone Number | | Organization | | | | + + + + + | [facility] | [address] | [place] [address] | [phone] | + + + + + ECG [...] | | | POC | performed at [facility];[address] | | LABORATORY | | | | [address];[place], [place] | | | | | | [address] | | | | + + + + + + + + | Specimen | + + | | + + + + + + + | Performing | Address | City/State/Zipcode | Phone Number | | Organization | | | | + + + + + | [facility] | [address] | [place] [address] | [phone] | + + + + + Troponin I (06/09/2019 11:38 PM PDT) + + + + + + | Component | Value | Ref Range | Performed | Pathologist | | | | | At | Signature | + + + + + + | Troponin I | <0.006Comment: 0.04 | 0.00 - 0.04 | [facility] | | | | ng/mL or [...] at | | | | | | [facility];[address] [facility] | | | | | | Blvd;[place] [address] | | | | + + + + + + + + | Specimen | + + | Blood | + + + + + + + | Performing | Address | City/State/Zipcode | Phone Number | | Organization | | | | + + + + + | [facility] | [address] | [place] [address] | [phone] | + + + + + Lipid [...] | 82Comment: Testing | <100 mg/dL | [facility] | | | Calculated | performed at [facility], [address] | | LABORATORY | | | | [address], | | | | | | [place] [address] | | | | + + + + + + + + | Specimen | + + | Blood | + + + + + + + | Performing | Address | City/State/Zipcode | Phone Number | | Organization | | | | + + + + + | [facility] | [address] | [place] [address] | [phone] | + + + + + Troponin [...] at | | | | | | [facility];[address] | | | | | | [address];[place] [address] | | | | + + + + + + + + | Specimen | + + | Blood | + + + + + + + | Performing | Address | City/State/Zipcode | Phone Number | | Organization | | | | + + + + + | [facility] | [address] | [place] [address] | [phone] | + + + + + POC [...] | | | POC | performed at [facility];[address] | | LABORATORY | | | | [address];[place] | | | | | | [address] | | | | + + + + + + + + | Specimen | + + | | + + + + + + + | Performing | Address | City/State/Zipcode | Phone Number | | Organization | | | | + + + + + | [facility] | [address] | [place] [address] | [phone] | + + + + + documented [...]
--- OUTSIDE RECORDS SUMMARY | ~2020-02-15 | XMS | Encounter Summary ---
Demographics + + + | Address | [address] | | | [place] [address] | + + + | Home Phone [...] Samantha Ramos | ECON | [address] # | | | | | [place] | | | | | [address] | | + + + + + Care Team Providers + +------+ + | Care Patient Navigator Name | Role | Phone | + +------+ + | Neri Mojica MD | PCP | | + +------+ + Encounter Details +--------+ + + + + | Date | Type | Department | Care Team | Description | +--------+ + + + + | 08/24/ | Document-Sc | UNKNOWN DEPARTMENT | Other, Faculty | | | 2012 | anned | [address] [facility] | [phone] | | | | | [address] | | | | | | [place], [place] | | | | | | [address] | | | +--------+ + + + [...]
--- OUTSIDE RECORDS SUMMARY | ~2020-02-15 | XMS | Encounter Summary ---
Demographics + + + | Address | [address] | | | [place] [address] | + + + | Home Phone [...] Samantha Ramos | ECON | [address] # | | | | | [place], [place] | | | | | [address] | | + + + + + Care Team Providers + +------+ + | Care Wood Carving Lathe Operator Name | Role | Phone [...] as of this encounter Progress Notes Interface, Roll Cleaner In - 04/25/2005 12:43 AM [facility] [id number] NAHOMY [facility]in [facility] Date: 09/30/2004 Clinic: [facility] Subjective: Alin is an almost 14-year-old young boy with type 1 diabetes. The family is new to clinic, here to establish care for his ongoing diabetes management. Alin is usually followed by his primary care doctor, Dr. Mojica in [place]. The family does have several questions and are quite interactive in today's visit. Previous Diabetes Education: Alin was diagnosed with type 1 diabetes on April 2002, at that time, he was admitted to the hospital in [place], [place] where the family did receive initial [...] to the football practice. Meal Planning: The recreational therapy aide Shannon Early did meet with the family [...] also involved in football. 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 I discussed the importance [...] the family's first visit here to the [facility]. The family is interactive [...] Diabetes Team. Estefany Hathaway R.N. / CONTRERAS [id number] / [id number] / [id number] / [id number] CDRCP Electronically signed by Estefany Hathaway 10-05-2004 02:25:46 PM documented i n this encounter Plan of Treatment Not on filedocumented as of this encounter Visit Diagnoses Not on filedocumented in this encounter
--- OUTSIDE RECORDS SUMMARY | ~2020-02-15 | XMS | Encounter Summary ---
Demographics + + + | Address | [address] | | | [place] [address] | + + + | Home Phone [...] Samantha Ramos | ECON | [address] # | | | | | [place] | | | | | [address] | | + + + + + Care Team Providers + +------+ + | Care Student Liaison Officer Name | Role | Phone | [...] | | | | Mailcode: PV430 | [place], [place] | | | | | [facility] | [address] | | | | | [place], [place] | [phone] | | | | | [address] | | | | | | [phone] | | | +--------+ + + + [...]
--- OUTSIDE RECORDS SUMMARY | ~2020-02-15 | XMS | Encounter Summary ---
Demographics + + + | Address | [address] | | | [place] [address] | + + + | Home Phone [...] Samantha Ramos | ECON | [address] # | | | | | [place] | | | | | [address] | | + + + + + Care Team Providers + +------+ + | Care Bearing Machine Operator Name | Role | Phone [...] | Diabetic | Lashawn Tan, | [address] | | | | | gastroparesi | [address] | Elliott Nguyen | | | | | s (HCC) | DIAMANTE [facility] | Mailcode: | | | | | Procedures | [address] | [facility] | | | | | CONSULT TO | Rd | Health and | | | | | SURGERY - | [place], [place] | Healing, | | | | | GENERAL | [address] | [address] | | | | | CONSULT TO | Phone: | [place], [place] | | | | | SURGERY - | [phone] | [address] | | | | | GENERAL | Fax: | Phone: | | | | | | [phone] | [phone] | | | | | | | Fax: | | | | | | | [phone] | +--------+--------+ + + + + Reason [...] | | | ogy | Abdominal | [facility], | [address] | | | | | pain | Vicky N, | [address] | | | | | abdominal | OVERHEAD WORKER [address] | Mailcode: | | | | | pain | [place] | [facility] | | | | | | [place] | [facility] and | | | | | | [address] | Healing, | | | | | | [place], | [address] | | | | | | [place] [address] | [place], [place] | | | | | | Phone: | [address] | | | | | | [phone] | Phone: | | | | | | Fax: | [phone] | | | | | | [phone] | Fax: | | | | | | | [phone] | +--------+--------+ + + + + Encounter Details +--------+---------+ + + + | Date | Type | Department | Care Team | Description | +--------+---------+ + + + | 07/02/ | Office | Digestive Health | Lashawn Joy, | Diabetic | | 2019 | Visit | Center at [facility] [address] | [address] [facility] | gastroparesis (HCC) | | | | [address] | [address] | (Primary Dx); | | | | Mailcode: [place] | [place], [place] | Chronic diarrhea | | | | for Health and | [address] | | | | | [facility], [facility] 2 | [phone] | | | | | [place], [place] | | | | | | [address] | | | | | | [phone] | | | +--------+---------+ + + + [...] once the orders have been submitted to [facility]. Please do not hesitate to contact my office via phone or iCoolhuntt if you have any questions. Thank you! [...] is reported. SOCIAL HISTORY: Pt lives in [place], [place] with his mother. Not working. Smokes [...] but this may be difficult for t smallpox hospital to afford as it is not [...] Lashawn Joy PA-C [facility] [address] Mailcode: [place] [address] documented in this encounter Plan [...] [address] | [place] | [phone] | | EUN | | | | [...] [address] | [place] | [phone] | | EUN | | | | [...] - | [address] | [place], [place] | [phone] | | EUN | | | | [...] [address] | [place] | [phone] | | EUN | | | | [...] | + + + + + | [facility] | [address] | [place] [address] | | | SERVICES, CORE | ZENA [...] + | HASSAN - AIRPORT - | [address] | [place] [address] | | | [place] | | | | + + + [...] | | | LABORATORY | | | [place] | | | SERVICES, | | | [...] | + + + + + | [facility] | [address] [facility] | [place] [address] | | | [address] | ZENA [...] | + + + + + | [facility] | [address] | [place] [address] | | | SERVICES, CORE | ZENA [...]
--- OUTSIDE RECORDS SUMMARY | ~2020-02-15 | XMS | Encounter Summary ---
Demographics + + + | Address | [address] | | | [place] [address] | + + + | Home Phone [...] Samantha Ramos | ECON | [address] # | | | | | [place] | | | | | [address] | | + + + + + Care Team Providers + +------+ + | Care Tassel Clipper Name | Role | Phone | + [...] | | | | | Procedures | [place], [place] | floor | | | | | CONSULT TO | [address] | [place], [place] | | | | | GI PROCEDURE | Phone: | [address] | | | | | UNIT: EGD | [phone] | Phone: | | | | | | Fax: | [phone] | | | | | | [phone] | Fax: | | | | | | | [phone] | + +--------+ + + + + [...] Ave | | | | | s ([facility]) | [facility] | Mailcode: | | | | | Procedures | [facility] | Center for | | | | | CONSULT TO | Rd | Health and | | | | | SURGERY - | [facility], [place] | [facility], | | | | | GENERAL | [address] | Building 2 | | | | | CONSULT TO | Phone: | [place], [place] | | | | | SURGERY - | [phone] | [address] | | | | | GENERAL | Fax: | Phone: | | | | | | [phone] | [phone] | | | | | | | Fax: | | | | | | | [phone] | +--------+--------+ + + + + Encounter [...] | | | [address] | [place], [place] | (Primary Dx) | | | | Mailcode: [place] | [address] | | | | | for Health and | [phone] | | | | | [facility] 2 | | | | | | [facility] [place] | | | | | | [address] | | | | | | [phone] | | | +--------+---------+ + + + [...] might be different fr om the original. [facility] Department of Surgery Red Surgery [...] Vitals reviewed. Labs/Cultures/Pathology: HBA1c 9.8% Imaging/Diagnostic Studies: CO GASTRIC EMPTYING STUDY 07/25/19: - No report - Severe gastroparesis seen CO GASTRIC EMPTYING STUDY Order: [id number] Status: Final result Visible to patient: No (Not Released) Details Reading Physician Reading Date Result Priority Emmanuel Mohamud MD 08/27/2015 Routine Component 3yr ago CO GASTRIC EMPTYING EXAM: Gastric emptying study on [...] t he above plan. Silke Flores MD [facility] [place] [facility] Pager #[phone] STAFF: A resident assisted with documenting this [...]
--- OUTSIDE RECORDS SUMMARY | ~2020-02-15 | XMS | Encounter Summary ---
Demographics + + + | Address | [address] | | | [place] [address] | + + + | Home Phone [...] [place] | | | | | [address] | | + + + + + Care Team Providers + +------+ + | Care Grain Unloader Machine Name | Role | Phone | + +------+ + | Erich Yates | PCP | | + +------+ + Encounter Details +--------+ + + + + | Date | Type | Department | Care Team | Description | +--------+ + + + + | 05/15/ | Orders Only | [facility] | Conversion | | | 2017 | | [place] | Transaction, | | | | | [address] | Provider Unknown | | | | | [address] [place], [place] | | | | | | [address] | (Fax) | | | | | [phone] | | | +--------+ + + + [...] 2019 | Office | | [address] [facility] [address] | | | | Visit | | [address] [place], [place] | | | | | | [address] | | | | | | | [...] - 1.030 | EXTERNAL | | | [place], | | | LAB | | | [...]
--- OUTSIDE RECORDS SUMMARY | ~2020-02-15 | XMS | Encounter Summary ---
Demographics + + + | Address | [address] | | | [place] [address] | + + + | Home Phone [...] Samantha Ramos | ECON | [address] # | | | | | [place] | | | | | [address] | | + + + + + Care Team Providers + +------+ + | Care Paving Inspector Name | Role | Phone | [...] | [address] | [address] [place], | | | | | Mailcode: [place] | [place] [address] | | | | | for Health and | [phone] | | | | | [facility], [facility] 2 | | | | | | [place], [place] | | | | | | [address] | | | | | | [phone] | | | +--------+ + + + [...]
--- OUTSIDE RECORDS SUMMARY | ~2020-02-15 | XMS | Encounter Summary ---
Demographics + + + | Address | [address] | | | [place] [address] | + + + | Home Phone [...] Samantha Ramos | ECON | [address] # | | | | | [place] | | | | | [address] | | + + + + + Care Team Providers + +------+ + | Care Javascript Engineer Name | Role | Phone | [...] 2005 | Only | [address] | [phone] | | | | | Rd Mailcode: [address] | | | | | | [place], [place] | | | | | | [address] | | | | | | [phone] | | | +--------+ + + + [...]
--- OUTSIDE RECORDS SUMMARY | ~2020-02-15 | XMS | Encounter Summary ---
Demographics + + + | Address | [address] | | | [place] [address] | + + + | Home Phone [...] Samantha Ramos | ECON | [address] # | | | | | [place] | | | | | [address] | | + + + + + Care Team Providers + +------+ + | Care Director Financial Analysis Name | Role | Phone | + [...] | | 2019 | | Center at [facility] [address] | PA-C [address] [facility] | results | | | | [address] | [address] | | | | | Mailcode: Center | [place], [place] | | | | | [facility] and | [address] | | | | | [facility], [facility] 2 | [phone] | | | | | [place], [place] | | | | | | [address] | | | | | | [phone] | | | +--------+ + + + [...]
--- OUTSIDE RECORDS SUMMARY | ~2020-02-15 | XMS | Encounter Summary ---
Demographics + + + | Address | [address] | | | [place] [address] | + + + | Home Phone [...] Samantha Ramos | ECON | [address] # | | | | | [place], [place] | | | | | [address] | | + + + + + Care Team Providers + +------+ + | Care Director Of Coding Name | Role | Phone | + [...] as of this encounter Progress Notes Interface, Core Cleaner In - 04/25/2005 12:43 AM PDT [id number] 09/30/2004 09/30/2003 [id number] NAHOMY Durbin [facility] [address] [place], [place] [address] or September 30, 2004 Neri Mojica M.D. [address] [place] [address] RE: BROOKS MARQUEZ II MR #: [id number] Dear Dr. Mojica: Diagnoses: 1. Type 1 diabetes. 2. Currently poor control. 3. Poor compliance. I reviewed Brooks Ogden in our Pediatric Endocrinology Clinic for the first time today. Alin is a 13-year 26-rpdcv-qfu boy who was diagnosed with type 1 diabetes in April 2002, presenting with weight loss, polyuria, and polydipsia. Since Brooks was diagnosed, he has been mainly under your care for his diabetes, although he has been seen once at [facility]. His control has generally been very poor, and he has had 3 episodes of diabetic ketoacidosis, the last being in July 2004. At this episode, he was admitted to [facility] with moderate DKA, initial bicarbonate [...] Normal sensation. Summary: Alin is a 13-year 75-birdb-nka boy with very poor diabetes control, secondary [...] or concerns. Yours sincerely, Ashanti Roque M.D. Grain Picker of Pediatric Endocrinology / [id number] / [id number] / [id number] / documented i n this encounter Plan of Treatment Not on filedocumented as of this encounter Visit Diagnoses Not on filedocumented in this encounter"
--- OUTSIDE RECORDS SUMMARY | ~2020-02-15 | XMS | Encounter Summary ---
Demographics + + + | Address | [address] | | | [place] [address] | + + + | Home Phone [...] [place] | | | | | [address] | | + + + + + Care Team Providers + +------+ + | Care Can Intake Worker Name | Role | Phone | + +------+ + | Erich Yates | PCP | | + +------+ + Encounter Details +--------+ + + + + | Date | Type | Department | Care Team | Description | +--------+ + + + + | 02/01/ | Abstract | [facility] | Divya, | | | 2018 | | GASTROENTEROLOGY | MD [address] | | | | | [address] [facility] | [place]. | | | | | [address] | [place] [address] | | | | | [address] | | | | | | [phone] | | | +--------+ + + + [...] 2019 | Office | | [address] [facility] | | | | Visit | | [address] [place] | | | | | | [address] | | | | | | | [...] - 1.03 | EXTERNAL | | | [place], | | | LAB | | | [...]
--- OUTSIDE RECORDS SUMMARY | 2020-02-15 15:02 | XMS ---
PreManage Notification: NGOC COREA Security Upsetter Events 1 event(s) in the past 18 months Most recent security events: Elopement at [facility] 04/01/2019 14:50 - Other Details: PATIENT LEFT AMA. CRITERIA MET - 6 ED Visits in 6 Months - [facility] - Has Care Guidelines - History of Sepsis Dx - PDMP CARE PROVIDERS CAMERON MENDEZ Physician Pattern Keeper 05/01/2018-Current PHONE: [phone] Ruma Slater Senior Software Analyst/Rabbler 04/12/2019-Current PHONE: [phone] BINDU LO Pain Medicine: Interventional Pain 01/07/2020-[facility] Medicine PHONE: [phone] Guidelines Source: [place] \F\ [place] IPA Guidelines Date: 05/04/2019 Care Coordination: If pt. presents to Ed please call case management at [facility] [phone] Leandra DORMAN or Jenni Westbrook RN Case Manager.\T\nbsp; Care History Medical/Surgical 05/01/2018 [facility] - CHW referred patient to [facility] case management team. - Further education on medications/chronic pain education is needed. - [facility] case management can be reached at [phone]. E.D. VISIT COUNT (12 MO.) 10 [facility] TOTAL 10 NOTE: Visits indicate total known visits. ED/UCC VISIT TRACKING (12 MO.) 02/15/2020 14:59 [facility] [place] TYPE: Emergency COMPLAINT: - ABNORMAL LABS, KIDNEY PROBLEM 01/14/2020 02:49 [facility] [place] TYPE: Emergency [...] - Acute kidney failure, unspecified - Other fpc (current) drug therapy - Hyperkalemia - Gastroparesis [...] 1 diabetes mellitus with foot ulcer - exterminator (current) use of insulin - Non-pressure chronic ulcer of other part of left foot with un - Other exterminator termite (current) drug therapy - Vomiting, unspecified - Unspecified abdominal pain - Type 1 diabetes mellitus with foot ulcer - Essential (primary) hypertension 08/28/2019 19:21 [facility] [place] TYPE: Emergency COMPLAINT: - SOB 06/22/2019 11:47 [facility] [place] TYPE: Emergency COMPLAINT: - ABD PAIN DIAGNOSES: - 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 - Upper abdominal pain, unspecified - Other exterminator termite (current) drug therapy - Allergy status to narcotic agent status - Nicotine dependence, unspecified, uncomplicated - Gastroparesis - Personal history of urinary calculi - Essential (primary) hypertension 06/12/2019 11:35 [facility] [place] TYPE: Emergency COMPLAINT: - BODY ACHES,CHILLS DIAGNOSES: - exterminator (current) use of insulin - Allergy status to narcotic agent status - Type 1 diabetes mellitus without complications - Other exterminator termite (current) drug therapy - Essential (primary) hypertension - Nicotine dependence, unspecified, uncomplicated - Upper abdominal pain, unspecified - Personal history of urinary calculi - Lower abdominal pain, unspecified 06/09/2019 11:31 [facility] [place] TYPE: Emergency COMPLAINT: - DEHYDRATION, ABD PAIN DIAGNOSES: - exterminator (current) use of insulin - Chest pain, unspecified - Essential (primary) hypertension - Unspecified abdominal pain - Other fpc (current) drug therapy - Type 1 diabetes [...] unspecified, uncomplicated - Vomiting, unspecified - Other exterminator termite (current) drug therapy - Personal history of urinary calculi - Type 1 diabetes mellitus without complications INPATIENT VISIT TRACKING (12 MO.) 01/14/2020 02:50 [facility] TYPE: Observation COMPLAINT: - HYPOGLYCEMIA DIAGNOSES: - Hypoglycemia, unspecified - Type 1 diabetes mellitus with diabetic chronic kidney disease - Type 1 diabetes mellitus with diabetic polyneuropathy - Allergy status to narcotic agent status - Anemia in chronic kidney disease - Chronic kidney disease, unspecified - 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 - Acidosis - Type 1 diabetes mellitus with hypoglycemia without coma - Unspecified open wound, left lower leg, initial encounter - Gastro-esophageal reflux disease without esophagitis - Unspecified open wound of lower back and pelvis without penet - exterminator (current) use of insulin - Noninfective gastroenteritis and colitis, unspecified - 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 - Personal history of urinary calculi - Other osteomyelitis, ankle and foot - Acute kidney failure, unspecified - Other fpc (current) drug therapy - skilled nursing (current) [...] mellitus with diabetic chronic kidney disease - skilled nursing (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 - Acquired [...] mellitus with hypoglycemia without coma - Other exterminator termite (current) drug therapy - Allergy status to narcotic agent status - Exposure to other specified factors, initial encounter - 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 - exterminator (current) use of insulin - Type 1 [...] below knee - Nausea with vomiting, unspecified [email or web address]
--- NOTE | 2020-02-15 23:14 | EKG ---
[facility] [address] [facility] [place] [address] Signed Accelerated Junctional rhythm Low voltage QRS Cannot rule out Anterior infarct (cited on or before 29-OCT-2019) Abnormal ECG When compared with ECG of 06-JAN-2020 00:31, Junctional rhythm has replaced Sinus rhythm QT has shortened Confirmed by YULIYA NO MD ([id number]) on 02/15/2020 11:14:24 PM Electronically Signed By: YULIYA NO MD 02/15/20 2314 PATIENT NAME: NGOC COREA II Electrocardiogram DATE OF : 88 PHYSICIAN: YULIYA NO MD REPORT #: [id number] REPORT IS CONFIDENTIAL AND NOT TO BE RELEASED WITHOUT AUTHORIZATION
== END ==
LOC: ED 14:58
DX: E87.5 Hyperkalemia (principal); J18.9 Pneumonia, unspecified organism; D72.829 Elevated white blood cell count, unspecified; D64.9 Anemia, unspecified; N19 Unspecified kidney failure; Z20.828 Contact with and (suspected) exposure to other viral communicable diseases; E10.9 Type 1 diabetes mellitus without complications; I10 Essential (primary) hypertension; M06.9 Rheumatoid arthritis, unspecified; F17.200 Nicotine dependence, unspecified, uncomplicated; Z79.899 Other long term (current) drug therapy; Z88.5 Allergy status to narcotic agent
CPT/HCPCS: 71046; 80053; 82330; 83605; 83690; 83735; 85025; 93005; 93010; 96361; 96365; 96375; 99285-25; J0610; J1956; J7030; U0002

== ENCOUNTER 2020-03-08 20:13 | Emergency (ER) | payer OTHER ==
[~2020-03-08] VITALS: Ht 188 cm; Wt 68.2 kg
--- OUTSIDE RECORDS SUMMARY | 2020-03-08 20:16 | XMS ---
PreManage Notification: [facility] COREA Security Hosiery Mater Events 1 event(s) in the past 18 months Most recent security events: Elopement at [facility] 04/01/2019 14:50 - Other Details: PATIENT LEFT AMA. CRITERIA MET - 6 ED Visits in [address] - [facility] - Has Care Guidelines - History of Sepsis Dx - PDMP - [facility] - 2 Visits in 30 Days CARE PROVIDERS CAMERON MENDEZ Physician Outdoor Adventure Guides 05/01/2018-Current PHONE: [phone] ANAYA [facility] 02/20/2020-Current PHONE: [phone] Ruma Slater Bridge Repairer/Health Technician Hearing 04/12/2019-Current PHONE: [phone] BINDU LO Pain Medicine: Interventional Pain 01/07/2020-Current Medicine PHONE: [phone] Guidelines Source: [place] \F\ [place] IPA Guidelines Date: 05/04/2019 Care Coordination: If pt. presents to Ed please call case management at [facility] [phone] Leandra DORMAN or Jenni Westbrook RN Case Manager.\T\nbsp; Care History Medical/Surgical 05/01/2018 [facility] - W referred patient to [facility] case management team. - Further education on medications/chronic pain education is needed. - [facility] case management can be reached at [phone]. E.D. VISIT COUNT (12 MO.) [address] [place] [address] TOTAL 11 NOTE: Visits indicate total known visits. ED/UCC VISIT TRACKING (12 MO.) 03/08/2020 20:14 [facility] [place] TYPE: Emergency COMPLAINT: - UNRESPONSIVE 02/15/2020 14:59 [facility] [place] TYPE: Emergency COMPLAINT: - ABNORMAL LABS, KIDNEY PROBLEM DIAGNOSES: - Other fpc (current) drug therapy - Hyperkalemia - Essential (primary) hypertension - Rheumatoid arthritis, unspecified - Allergy status to narcotic agent status - Contact with and (suspected) exposure to other viral communic - Other specified abnormal findings of blood chemistry - Unspecified kidney failure - Pneumonia, unspecified organism - Anemia, unspecified - Type 1 diabetes mellitus without complications - Elevated white blood cell count, unspecified - Nicotine dependence, unspecified, uncomplicated 01/14/2020 02:49 [facility] [place] TYPE: Emergency [...] - Acute kidney failure, unspecified - Other long term care administrator (current) drug therapy - Hyperkalemia - Gastroparesis [...] of left foot with un - Other fpc (current) drug therapy - Vomiting, unspecified - Unspecified abdominal pain - Type 1 diabetes mellitus with foot ulcer - Essential (primary) hypertension 08/28/2019 19:21 [facility] [place] TYPE: Emergency COMPLAINT: - SOB 06/22/2019 11:47 [facility] TYPE: Emergency COMPLAINT: - ABD PAIN DIAGNOSES: - 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 - Upper abdominal pain, unspecified - Other fpc (current) drug therapy - Allergy status to narcotic agent status - Nicotine dependence, unspecified, uncomplicated - Gastroparesis - Personal history of urinary calculi - Essential (primary) hypertension 06/12/2019 11:35 [facility] [place] TYPE: Emergency COMPLAINT: - BODY ACHES,CHILLS DIAGNOSES: - long term care administrator (current) use of insulin - Allergy status to narcotic agent status - Type 1 diabetes mellitus without complications - Other long term care administrator (current) drug therapy - Essential (primary) hypertension - Nicotine dependence, unspecified, uncomplicated - Upper abdominal pain, unspecified - Personal history of urinary calculi - Lower abdominal pain, unspecified 06/09/2019 11:31 [facility] TYPE: Emergency COMPLAINT: - DEHYDRATION, ABD PAIN DIAGNOSES: - long term care administrator (current) use of insulin - Chest pain, [...] unspecified, uncomplicated - Vomiting, unspecified - Other fpc (current) drug therapy - Personal history of urinary calculi - Type 1 diabetes mellitus without complications INPATIENT VISIT TRACKING (12 MO.) 02/15/2020 22:36 [facility] TYPE: Medical Surgical DIAGNOSES: - Hyperkalemia - abnormal labs - Chronic kidney disease, unspecified - Essential (primary) hypertension - Chronic kidney disease, stage 4 (severe) - Anemia in chronic kidney disease - Pneumonia, unspecified organism - Nicotine dependence, unspecified, uncomplicated - Acidosis - Acute kidney failure, unspecified - 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 - Changes in skin texture - Type 1 diabetes mellitus with diabetic chronic kidney disease - Type 1 diabetes mellitus with diabetic nephropathy - 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 - Gastroparesis - Chronic kidney disease, stage 3 (moderate) 01/14/2020 02:50 [facility] TYPE: Observation COMPLAINT: - HYPOGLYCEMIA DIAGNOSES: - [...] lower back and pelvis without penet - MCC (current) use of insulin - Noninfective gastroenteritis and colitis, unspecified - 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 - Exposure to other specified factors, initial encounter - Gastroparesis - Nicotine dependence, cigarettes, uncomplicated 01/06/2020 02:27 [facility] TYPE: Surgical Services DIAGNOSES: - Type 1 diabetes mellitus with ketoacidosis without coma - Type 1 diabetes mellitus with foot ulcer - Gastroparesis - Chronic kidney disease, stage 3 (moderate) - Acute kidney failure, unspecified - Non-pressure chronic ulcer of other part of left foot with un - Weakness - DKA - 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 11/16/2019 14:51 [facility] TYPE: Medical Surgical COMPLAINT: - DIABETIC FOOT WOUND, HYPOGLYCEMIA DIAGNOSES: - 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 - Difficulty in walking, not elsewhere classified - 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 - Anemia, unspecified - long term care administrator (current) use of insulin - Other long term care administrator (current) drug therapy - Chronic pain syndrome - Type 1 diabetes mellitus with other specified complication - 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 - Personal history of urinary calculi - Other osteomyelitis, ankle and foot - Acute kidney failure, unspecified - Other fpc (current) drug therapy - long term care administrator (current) use of insulin - Acute kidney failure, unspecified - Personal history of urinary calculi - Anxiety disorder, unspecified - Gastroparesis - Type 1 diabetes mellitus with other specified complication - Other osteomyelitis, ankle and foot - Anemia, unspecified - long term care administrator (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 - Nicotine [...] mellitus with diabetic chronic kidney disease - long term care administrator (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 - Acquired absence of right leg below knee - Type 1 diabetes mellitus with diabetic chronic kidney disease - Chronic kidney disease, stage 3 (moderate) - Non-pressure chronic ulcer of other part of left foot with un 08/28/2019 19:[address] 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
[2020-03-08] MEDS ORDERED: MELATIN3 MG PO (22:38)
[2020-03-08] MEDS ORDERED: FUROSEMIDE80 MG PO (22:38)
[2020-03-08] MEDS ORDERED: CARVEDILOL25 MG PO (22:39)
[2020-03-08] MEDS ORDERED: SERTRALINE HCL50 MG PO (22:39)
--- NOTE | 2020-03-09 11:41 | EKG ---
[facility] [address] [facility] [place] [address] Signed Sinus tachycardia Otherwise normal ECG When compared with ECG of 15-FEB-2020 17:29, Sinus rhythm has replaced Junctional rhythm Minimal criteria for Anterior infarct are no longer present QT has lengthened Confirmed by PINO LOPEZ MD ([id number]) on 03/09/2020 11:40:47 AM Electronically Signed By: PINO LOPEZ MD 03/09/20 1141 PATIENT NAME: [facility] C[facility]A II Electrocardiogram DATE OF : 88 PHYSICIAN: PINO LOPEZ MD REPORT #: [id number] REPORT IS CONFIDENTIAL AND NOT TO BE RELEASED WITHOUT AUTHORIZATION
== END 2020-03-08 23:17 | disposition short-term general hospital (02) ==
LOC: ED 20:13
DX: G93.41 Metabolic encephalopathy (principal); E10.22 Type 1 diabetes mellitus with diabetic chronic kidney disease; N18.9 Chronic kidney disease, unspecified; M06.9 Rheumatoid arthritis, unspecified; Z87.891 Personal history of nicotine dependence; Z88.5 Allergy status to narcotic agent; Z79.899 Other long term (current) drug therapy
CPT/HCPCS: 70450; 71045; 80053; 81001; 83605; 85025; 93005; 93010; 96360; 99285-25; J7030

== ENCOUNTER 2020-03-21 11:38 | Observation (INO) | payer OTHER ==
[~2020-03-21] VITALS: Ht 188 cm; Wt 62.6 kg
--- OUTSIDE RECORDS SUMMARY | ~2020-03-21 | XMS | Encounter Summary ---
Demographics + + + | Address | [address] | | | [place] [address] | + + + | Home Phone | | + + + | Preferred Language | Unknown | + + + | Marital Status | Single | + + + | Scientologist Affiliation | NON | + + + | Race | White | + + + | Ethnic Group | Not or | + + + Author + + + | Author | [facility] | + + + | Organization | [facility] | + + + | Address | Unknown | + + + | Phone | Unavailable | + + + Support + + + + + | Name | Relationship | Address | Phone | + + + + + | Samantha Ramos | ECON | [address] | | | | | [place] | | | | | [address] | | + + + + + Care Team Providers + +------+ + | Care Police Detective Name | Role | Phone | + +------+ + | Erich Yates PA-C | PCP | | + +------+ + Encounter Details +--------+ + + + + | Date | Type | Department | Care Team | Description | +--------+ + + + + | 08/27/ | Pharmacy | Outpatient Retail | | | | 2014 | Visit [facility] | | | | | [address] | | | | | | [place], [place] | | | | | | [address] | | | | | | [phone] | | | +--------+ + + + + Social History + +-------+ +--------+------+ | Tobacco Use | Types | Packs/Day | Years | Date | | | | | Used | | + +-------+ +--------+------+ | Current Every Day | | 0.5 | | | | Smoker | | | | | + +-------+ +--------+------+ + + +---------+ + | Alcohol Use | Drinks/Week | oz/Week | Comments | + + +---------+ + | No | | | | + + +---------+ + + + + | Sex Assigned at [...] Not on filedocumented as of this encounter Visit Diagnoses Not on filedocumented in this encounter"
--- OUTSIDE RECORDS SUMMARY | ~2020-03-21 | XMS | Encounter Summary ---
Demographics + + + | Address | [address] | | | [place] [address] | + + + | Home Phone | | + + + | Preferred Language | Unknown | + + + | Marital Status | Single | + + + | Jew Affiliation | NON | + + + | Race | White | + + + | Ethnic Group | Not or | + + + Author + + + | Author | [facility] | + + + | Organization | [facility] | + + + | Address | Unknown | + + + | Phone | Unavailable | + + + Support + + + + + | Name | Relationship | Address | Phone | + + + + + | Samantha Ramos | ECON | [address] | | | | | [place] | | | | | [address] | | + + + + + Care Team Providers + +------+ + | Care Upfitter Name | Role | Phone | + +------+ + | Erich Yates PA-C | PCP | | + +------+ + Encounter Details +--------+ + + + + | Date | Type | Department | Care Team | Description | +--------+ + + + + | 10/11/ | Transcribe | [facility] | Transcribe | | | 2020 | Orders | [facility] [address] | Encounter, Provider, | | | | | Elliott Nguyen Mailcode: | [address] | | | | | [facility] | [place] [address] | | | | | [facility], | | | | | | [address] | | | | | | [place], [place] | | | | | | [address] | | | | | | [phone] | | | +--------+ + + + + Social History + +-------+ +--------+------+ | Tobacco Use | Types | Packs/Day | Years | Date | | | | | Used | | + +-------+ +--------+------+ | Current Every Day | | 0.5 | | | | Smoker | | | | | + +-------+ +--------+------+ + +---+---+---+ | Smokeless Tobacco: | | | | | Never Used | | | | + +---+---+---+ + + +---------+ + | Alcohol Use [...] as of this encounter Plan of Treatment +------+ +--------+ + + | Name | Type | Priori | Associated Diagnoses | Order Schedule | | | | ty | | | +------+ +--------+ + + | EGD | Procedures | Routin | Diabetic | Expected: 10/11/2019 | | | | e | gastroparesis | | | | | | associated with type | | | | | | 1 diabetes mellitus | | | | | | ([facility]) | | +------+ +--------+ + + documented as of this encounter Visit Diagnoses + + | Diagnosis | + + | Diabetic gastroparesis associated with type 1 diabetes mellitus (HCC) - Primary | + + documented in this encounter"
--- OUTSIDE RECORDS SUMMARY | ~2020-03-21 | XMS | Encounter Summary ---
Demographics + + + | Address | [address] | | | [place] [address] | + + + | Home Phone | | + + + | Preferred Language | Unknown | + + + | Marital Status | Single | + + + | Alevism Affiliation | NON | + + + [...] | Samantha Ramos | ECON | [address] | | | | | [place] | | | | | [address] | | + + + + + Care Team Providers + +------+ + | Care Vending Manager Name | Role | Phone | + +------+ + | Erich Yates PA-C | PCP | | + +------+ + Reason for Referral Consultation (Routine) + +--------+ + + + + | Status | Reason | Specialty | Diagnoses / | Referred By | Referred To | | | | | Procedures | Contact | Contact | + +--------+ + + + + | Canceled | | Gastroenterol | Diagnoses | Mark, | [facility] | | | | ogy | History of | MD Silke | [facility] [address] | | | | | diabetic | [address] | | | | | gastroparesi | Jacques Vázquez | Florencia | | | | | jo-ann | [address] | [address] | | | | | Procedures | [place], [place] | floor | | | | | CONSULT TO | [address] | [place], [place] | | | | | GI PROCEDURE | Phone: | [phone] | | | | | UNIT: EGD | [phone] | Phone: | | | | | | Fax: | [phone] | | | | | | [phone] | Fax: | | | | | | | [phone] | + +--------+ + + + + Reason for Visit + + + | Reason | Comments | + + + | New patient | | | consultation | | + + + Consultation (Urgent) +--------+--------+ + + + + | Status | Reason | Specialty | Diagnoses / | Referred By | Referred To | | | | | Procedures | Contact | Contact | +--------+--------+ + + + + | Closed | | Surgery | Diagnoses | Rufino, | Gs Foregut | | | | | Diabetic | Lashawn D, | [facility] [address] | | | | | gastroparesi | PA-C [address] | | | | | s ([facility]) | [facility] | Mailcode: | | | | | Procedures | [facility] | Center for | | | | | CONSULT TO | Rd | Health and | | | | | SURGERY - | [facility], [place] | [facility], | | | | | GENERAL | [address] | [address] | | | | | CONSULT TO | Phone: | [place], [place] | | | | | SURGERY - | [phone] | [address] | | | | | GENERAL | Fax: | Phone: | | | | | | [phone] | [phone] | | | | | | | Fax: | | | | | | | [phone] | +--------+--------+ + + + + Encounter Details +--------+---------+ + + + | Date | Type | Department | Care Team | Description | +--------+---------+ + + + | 07/27/ | Office | Digestive Health | Alison Holley, | History of diabetic | | 2019 | Visit | Center at [facility] [address] | MD [address] | gastroparesis | | | | [address] | [place], [place] | (Primary Dx) | | | | Mailcode: [place] | [address] | | | | | for Health and | [phone] | | | | | [facility] | | | | | | [facility] [place] | | | | | | [address] | | | | | | [phone] | | | +--------+---------+ + + + Social History + +-------+ [...] + + documented as of this encounter Last Filed Vital Signs + + + + + | Vital Sign | Reading | Time Taken | Comments | + + + + + | Blood Pressure | - | - | | + + + + + | Pulse | - | - | | + + + + + | Temperature | - | - | | + + + + + | Respiratory Rate | 14 | 07/27/2019 8:22 AM | | | | | PDT | | + + + + + | Oxygen Saturation | - | - | | + + + + + | Inhaled Oxygen | - | - | | | Concentration | | | | + + + + + | Weight | 68.1 kg (150 lb 3.2 | 07/27/2019 8:22 AM | 153 w/ prostectic | | | oz) | PDT | | + + + + + | Height | 188 cm (6' 2") | 07/27/2019 8:22 AM | | | | | PDT | | + + + + + | Body Mass Index | 19.28 | 07/27/2019 8:22 AM | | | | | PDT | | + + + + + documented in this encounter Progress Notes Silke Flores MD - 07/27/2019 8:30 AM PDTFormatting of this note might be different fr om the original. [facility] Department of [facility] New Patient Note Author: Silke Flores MD Attending Physician: Neri Steven MD 07/27/2019 ID: Brooks Marquez II is a 28 y.o. male with severe gastroparesis Referring Provider: VIKI Caceres Chief Complaint: Gastroparesis History of Present Illness: Brooks Marquez II is a(n) 28 y.o. male with a past medical history of Type I Diabetes, severe gastroparesis, CKD Stage III, HTN, chronic pain, nec fas c of RLE s/p R BKA who presents to clinic with significant epigastric pain. He states he has had issues with gastroparesis for the past 5 years. He has significant daily pain that rang es from a 5-8 in nature, it is sharp in nature and radiates down. The pain radiates midline from the pubic symphysis up towards his xyphoid. He takes a four tablets of hydrocodone kayleigh y for this pain but this does not alleviate the pain. He continues to report use of marijuan a and smokes 2-3 cigarettes a day. His glucoses remain uncontrolled at this time. Last HBA1c was 10. He is not on a insulin pump for glucose control. Recently admitted to the hospital on 06/09/19 for chest pain. Troponin was mildly elevated but no evidence of WI. V/Q was neg f or PE. Functional status: ECOG 1 Review of Systems: A 12-point review of systems is as per the HPI above, but is otherwise n egative. Past Medical History: Diagnosis Date Chronic epigastric pain Suspected gastroparesis. EGD negative Type 1 diabetes mellitus (HCC) Dx age 11. No known complications aside from suspected gastroparesis. Last A1c unknown. Past Surgical History Procedure Laterality Date Elbow surgery Amputation, below-knee, right 10/2018 Social History Tobacco Use Smoking status: Current Every Day Smoker Packs/day: 0.50 Smokeless tobacco: Never Used Substance Use Topics Alcohol use: No Family History Problem Relation Stroke Mother Thyroid disease Mother Hypertension Father Medications: Blood Sugar Diagnostic (ASCENSIA MICROFILL) In Vitro Strip, use to test blood glucose 5x da lucian glucagon 1 mg/mL injection recon soln, Inject 1 mg into the muscle (IM) as needed for hypog lycemia (CBG less than 70 mg/dL). HYDROcodone-acetaminophen 10-325 mg oral tablet, Take 1 tablet by mouth every four hours as needed. Not to exceed 3250 mg of acetaminophen from all products per 24 hour period. hyoscyamine 0.125 mg sublingual tablet, sublingual, Place 1 tablet under tongue every four hours as needed for diarrhea (or abdominal pain). insulin glargine (LANTUS) 100 unit/mL subcutaneous solution, Inject 40 Units under the skin (SUBC) once daily in the morning. insulin lispro (HUMALOG) 100 unit/mL subcutaneous solution, Up to 50 units per day in divid ed doses as directed Insulin Syringe-Needle U-100 (BD ULTRAFINE INSULIN) 1 mL 31 x 5/16" Misc.(Non-Drug; Combo R oute) Syringe, administer lantus as recommended by physician metoclopramide HCl 10 mg oral tablet, Take 10 mg by mouth every six hours as needed for johnny sea/vomiting. omeprazole 40 mg oral capsule,delayed release(DR/EC), Take 40 mg by mouth once daily. ondansetron ODT 8 mg oral tablet,disintegrating, Dissolve 8 mg in mouth every twelve hours as needed. promethazine 25 mg rectal suppository, Unwrap and insert 1 suppository rectally four times daily as needed for nausea/vomiting. Allergies: Allergies Allergen Reactions Codeine Nausea and Vomiting OBJECTIVE: Vitals: Resp 14 | Ht 1.88 m (6' 2") | Wt 68.1 kg (150 lb 3.2 oz) Comment: 153 w/ prostectic | BMI 19.28 kg/m | BSA 1.89 m Physical Exam: Physical Exam Constitutional: He is oriented to person, place, and time. He appears malnourished. He appe ars unhealthy. HENT: Head: Normocephalic and atraumatic. Eyes: Pupils are equal, round, and reactive to light. Conjunctivae are normal. Neck: Normal range of motion. Neck supple. Cardiovascular: Normal rate and intact distal pulses. Pulmonary/Chest: Effort normal. No respiratory distress. He exhibits no tenderness. Abdominal: Soft. He exhibits no distension and no mass. There is tenderness in the epigastr ic area. There is no rebound and no guarding. Musculoskeletal: Normal range of motion. General: No deformity or edema. Comments: R BKA w/ prosthetic Neurological: He is alert and oriented to person, place, and time. GCS score is 15. Skin: Skin is warm. No rash noted. He is not diaphoretic. No erythema. No pallor. Psychiatric: Mood, memory, affect and judgment normal. Vitals reviewed. Labs/Cultures/Pathology: HBA1c 9.8% Imaging/Diagnostic Studies: [place] GASTRIC EMPTYING STUDY 07/25/19: - No report - Severe gastroparesis seen [place] GASTRIC EMPTYING STUDY Order: [id number] Status: Final result Visible to patient: No (Not Released) Details Reading Physician Reading Date Result Priority Emmanuel Mohamud MD 08/27/2015 Routine Component 3yr ago [place] GASTRIC EMPTYING EXAM: Gastric emptying study on 08/27/15 14:13:00 HISTORY: Epigastric abdominal pain. Long-standing poorly controlled type I diabetes. Concern for gastroparesis. COMPARISON: None TECHNIQUE: A standard meal of eggs and toast containing 0.5 millicuries technetium 99m sulfur colloid was administered. The patient ingested the meal without difficulty. Anterior and posterior images were obtained for one minute at baseline, one hour, two hours and four hours. The amount of radioactivity in the region of the stomach was plotted on a graph and the percentage of gastric retention at 1, 2 and 4 h after meal ingestion was determined using a geometric mean. FINDINGS: Exam is partially limited as patient had been administered reglan, prilosec and dilaudid. These are known to affect gastric emptying. The percentage of tracer retained at 1, 2, and 4 hours after meal ingestion is 92, 99, and 91%, respectively. The upper limits of normal gastric retention are 90%, 60%, and 10% at 1, 2, and 4 hours respectively (Ref: Cooper Bernardo, et all. Am J Gastroent 2000, 95:1456-62) IMPRESSION: Patient had been administered reglan, prilosec and dilaudid prior to exam, which are known to affect gastric emptying. Despite this, the gastric emptying is markedly delayed, consistent with severe gastroparesis. ASSESSMENT: Brooks Marquez II is a 28 y.o. male patient type I DM, HTN, severe gastroparesis who pr esents to discuss surgical options for severe gastroparesis PLAN: 1. After discussing the options with him, the patient is not currently a candidate for a ga stric pacemaker or pyloromytomy. The patient is a smoker, is on high amounts of narcotics, a s well as has elevated HBA1c of 9.8 last checked in 2018. 2. Will proceed with EGD with botox of pylorus to see if this improves his gastric emptying 3. If the botox improves the patient's symptoms, then we will proceed with laparoscopic pyl oromyotomy afterwards 4. In order to proceed with pyloromyotomy, he will need to have a HBA1c around 8, be off of narcotics and have smoking cessation 5. RTC in 6 months to assess botox injection This patient was seen in conjunction with Dr. Steven, attending physician, who agrees with t he above plan. Silke Flores MD [facility] Pager #[phone] STAFF: A resident assisted with documenting this service. I saw the patient and reviewed and verif ied all information documented by the resident, and made modifications to such information, when appropriate. documented in this encou nter Plan of Treatment Not on filedocumented as of this encounter Visit Diagnoses + + | Diagnosis | + + | History of diabetic gastroparesis - Primary Personal history of other endocrine, | | metabolic, and immunity disorders | + + documented in this encounter
--- OUTSIDE RECORDS SUMMARY | ~2020-03-21 | XMS | Encounter Summary ---
Demographics + + + | Address | [address] | | | [place] [address] | + + + | Home Phone | | + + + | Preferred Language | Unknown | + + + | Marital Status | Single | + + + | Scientology Affiliation | NON | + + + [...] | Samantha Ramos | ECON | [address] | | | | | [place] | | | | | [address] | | + + + + + Care Team Providers + +------+ + | Care Senior Software Quality Engineer Name | Role | Phone | + [...] | | | | [facility] | [place], [place] | | | | | [address] | [address] | | | | | [place] | [phone] | | | | | [place], [place] | | | | | | [address] | | | | | | [phone] | | | +--------+ + + + [...] - [facility] | [address] | [place], [place] | | | [facility] | [address] | [address] | | | TESTS | | | | + + + + + | [facility] | [address] | [place], [place] | | | TESTS | [facility] | [address] | | + + + + + documented in this encounter Visit Diagnoses Not on filedocumented in this encounter"
--- OUTSIDE RECORDS SUMMARY | ~2020-03-21 | XMS | Encounter Summary ---
Demographics + + + | Address | [address] | | | [place] [address] | + + + | Home Phone | | + + + | Preferred Language | Unknown | + + + | Marital Status | Single | + + + | Denominational Affiliation | NON | + + + [...] | Samantha Ramos | ECON | [address] # | | | | | [place], [place] | | | | | [address] | | + + + + + Care Team Providers + +------+ + | Care Premium Representative Name | Role | Phone | + +------+ + | Erich Yates PA-C | PCP | | + +------+ + Encounter Details +--------+--------+ + + + | Date | Type | Department | Care Team | Description | +--------+--------+ + + + | 07/27/ | Travel | | | | | 2019 | | | | | +--------+--------+ + + + Social History + +-------+ [...]
--- OUTSIDE RECORDS SUMMARY | ~2020-03-21 | XMS | Encounter Summary ---
Demographics + + + | Address | [address] | | | [place] [address] | + + + | Home Phone | | + + + | Preferred Language | Unknown | + + + | Marital Status | Single | + + + | Amish Affiliation | NON | + + + [...] | Samantha Ramos | ECON | [address] # | | | | | [place] | | | | | [address] | | + + + + + Care Team Providers + +------+ + | Care Belt Molder Name | Role | Phone | + +------+ + | Erich Yates PA-C | PCP | | + +------+ + Encounter Details +--------+ + + + + | Date | Type | Department | Care Team | Description | +--------+ + + + + | 01/05/ | Outside | UNKNOWN DEPARTMENT | Other, Faculty | | | 2020 | Records | [address] [facility] | [phone] | | | | | [address] | | | | | | [place], [place] | | | | | | [address] | | | +--------+ + + + + Social History + + + +--------+------+ | Tobacco Use | Types | Packs/Day | Years | Date | | | | | Used | | + + + +--------+------+ | Current Every Day | Cigarettes | 0.5 | | | | Smoker [...] | + +--------+ + + + | OUTSIDE RADIOLOGY - | | 01/06/2020 | | Results for this | | CT | | 12:00 AM | | procedure are in the | | | | PDT | | results section. | + +--------+ + + + documented in this encounter Results OUTSIDE RADIOLOGY - CT (01/06/2020 12:00 AM PDT) + + + | Narrative | Performed At | + + + | | | + + + documented in this encounter Visit Diagnoses Not on filedocumented in this encounter"
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
--- OUTSIDE RECORDS SUMMARY | ~2020-03-21 | XMS | Encounter Summary ---
Demographics + + + | Address | [address] [address] | | | [place] [address] | + + + | Home Phone | | + + + | Preferred Language | Unknown | + + + | Marital Status | Single | + + + | Restorationist Affiliation | Unknown | + + + | Race | Unknown | + + + | Ethnic Group | Unknown | + + + Author + + + | Author | [facility] | | | and [place] | + + + | Organization | [facility] | | | and [place] | + + + | Address | Unknown | + + + | Phone | Unavailable | + + + Support + + + + + | Name | Relationship | Address | Phone | + + + + + | Gia Ramos | ECON | [address] | | | | [id number] [place] | | | | | [address] | | + + + + + Care Team Providers + +------+ + | Care Reprographics Technician Name | Role | Phone | + +------+ + | Emmanuel Saavedra | PCP | | + +------+ + Reason for Referral Evaluate & Treat (Routine) +--------+ + + + + + | Status | Reason | Specialty | Diagnoses / | Referred By | Referred To | | | | | Procedures | Contact | Contact | +--------+ + + + + + | Closed | Specialty | Home Health | Diagnoses | Quentin, | | | | Services | Services | Diabetic | Savage | | | | Required | | gastroparesi | DO Neri | | | | | | s ([facility]) | [address] | | | | | | Fissure in | [address] [place] | | | | | | skin of foot | [place], [place] | | | | | | | [address] | | | | | | | Phone: | | | | | | | [phone] | | | | | | | Fax: | | | | | | | [phone] | | +--------+ + + + + + Reason for Visit Auth/Cert +--------+--------+ + + + + | Status | Reason | Specialty | Diagnoses / | Referred By | Referred To | | | | | Procedures | Contact | Contact | +--------+--------+ + + + + | | | | Diagnoses | | | | | | | abnormal | | | | | | | labs | | | +--------+--------+ + + + + Encounter Details +--------+ + + + + | Date | Type | Department | Care Team | Description | +--------+ + + + + | 02/14/ | Hospital | [facility] | Alexandr Smalls MD | Diabetic | | 2019 - | Encounter | [facility] | [address] | gastroparesis (HCC) | | | | [address] [place] | [place] | (Primary Dx); Acute | | 02/20/ | | [place] [address] | [id number] | kidney injury | | 2019 | | [phone] | | superimposed on | | | | | Meggan Cary, | chronic kidney | | | | | [address] | disease (HCC); | | | | | [place] | Anemia of chronic | | | | | [id number] | renal failure, stage | | | | | | 3 (moderate) (HCC); | | | | | Savage Saavedra | Community acquired | | | | | DO Neri [address] | pneumonia of right | | | | | [address] [place] | lower lobe of lung; | | | | | [place] [address] | Current smoker; | | | | | [phone] | Hyperkalemia; 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 | | | | | | (HCC); Anemia of | | | | | | chronic renal | | | | | | failure, stage 4 | | | | | | (severe) (HCC); | | | | | | Metabolic acidosis, | | | | | | normal anion gap | | | | | | (NAG); Type 1 DM | | | | | | with CKD stage 4 and | | | | | | hypertension (HCC); | | | | | | Essential | | | | | | hypertension, | | | | | | malignant; Fissure | | | | | | in skin of foot; CKD | | | | | | (chronic kidney | | | | | | disease), stage III | | | | | | ([facility]) | +--------+ + + + + Social [...] on file | | + + + documented as of this encounter Last Filed Vital Signs + + + + + | Vital Sign | Reading | Time Taken | Comments | + + + + + | Blood Pressure | 158/108 | 02/21/2020 8:04 AM | | | | | PDT | | + + + + + | Pulse | 92 | 02/21/2020 8:04 AM | | | | | PDT | | + + + + + | Temperature | 36.2 C (97.2 F) | 02/21/2020 8:04 AM | | | | | PDT | | + + + + + | Respiratory Rate | 18 | 02/21/2020 8:04 AM | | | | | PDT | | + + + + + | Oxygen Saturation | 98% | 02/21/2020 8:04 AM | | | | | PDT | | + + + + + | Inhaled Oxygen | - | - | | | Concentration | | | | + + + + + | Weight | 75.1 kg (165 lb 9.1 | 02/21/2020 5:36 AM | | | | oz) | PDT | | + + + + + | Height | 188 cm (6' 2") | 02/16/2020 5:28 AM | | | | | PDT | | + + + + + | Body Mass Index | 21.26 | 02/16/2020 5:28 AM | | | | | PDT | | + + + + + documented in this encounter Functional Status + + + + | Functional Status | Response | Date of Assessment | + + + + | Are you deaf or do you have serious | No | 01/10/2020 | | difficulty hearing? | | | + + + + | Are you blind or do you have serious | No | 01/10/2020 | | difficulty seeing, even when wearing | | | | glasses? | | | + + + + | Do you have serious difficulty walking or | Yes | 01/10/2020 | | climbing stairs? (5 years old or older) | | | + + + + | Do you have difficulty dressing or bathing? | Yes | 01/10/2020 | | (5 years old or older) | | | + + + + | Because of a physical, mental, or emotional | Yes | 01/10/2020 | | condition, do you have difficulty [...] physical, mental, or emotional | No | 01/10/2020 | | condition, do you have serious difficulty | | | | concentrating, remembering, or making | | | | decisions? (5 years old or older) | | | + + + + documented as of this encounter Discharge Summaries Savage Saavedra DO - 02/21/2020 10:59 AM PDTFormatting of this note might be differ ent from the original. Physician Discharge Summary Patient ID: Brooks Marquez [id number] 29 y.o. 1990 Admit date: 02/15/2020 Discharge date and time: 02/21/20 Admitting Physician: Alexandr Smalls MD Discharge Physician: Savage Saavedra DO Admission Diagnoses: abnormal labs Discharge Diagnoses: Acute kidney injury on CKD 4, Chronic anemia, L foot diabetic ulcer, e ssential HTN, T1DM, weakness, diarrhea, gastroparesis Admission Condition: fair Discharged Condition: good Indication for Admission: EULOGIO on CKD, possible PNA Hospital Course: Presented from his PCPs office with EULOGIO on CKD and worsening anemia, in addition to progres sive weakness and difficulty with his home wheelchair transfers. He has a history of poorly controlled T1DM and subsequent renal disease, gastroparesis, and prior RLE BKA. He was see n by nephrology during his stay. Initial concerns for possible PNA were never confirmed, bu t patient did receive initially Azithromycin/Rocephin, then meropenem, then Cipro as dosed f or a LLE foot ulcer. Cultures of the wound grew S. Epidermidis and serratia. He will compl ete an additional 5 days of renally dosed oral Cipro as an outpatient for a total 7 days of FQ therapy. He has chronic anemia in the setting of CKD, no evidence of acute bleeding. He received 1 unit of PRBC on 02/15, then 2 additional units on 02/17 and had stable blood counts afterwards . He will need a recheck in one week. Nephrology followed along with the patient and adjustments made on his medications, SILVIA-I h eld, Carvedilol started. He was started on 80 BID PO lasix which will be continued at [facility]. He did not require HD but may in the future, he has been referred to a [facility] nephrolo gist to establish care and may need placement of an AV fistula in the near future to facilit ate HD. He received lantus and SSI for his diabetes. He was started on Sertraline. He blayne l need to follow-up with his PCP and have a recheck of kidney function and electrolyte level s at that time. PT/OT assessed patient and recommendations were for SNF vs. LTACH. Family and patient surya bruno refused these placement options. As a result he was discharged home with PT/OT/RN. Consults: nephrology Significant Diagnostic Studies: MRI L foot 02/19/20: IMPRESSION: No evidence for osteomyelitis. Diffuse cellulitis. Muscle signal consistent with diabetic neuropathy versus myositis. Treatments: furosemide, meropenem, ciprofloxacin, coreg Discharge Exam: General: calm, appears older than stated age Cardiovascular: Regular rate and rhythm Respiratory: Clear bilaterally Abdomen: Soft without tenderness Extremities: No edema, RLE BKA. Wound to lateral surface LLE, covered, no surrounding cellu litis, stable Disposition: home Patient Instructions: Discharge Medications New Medications Details carvedilol 25 mg tablet Take 1 tablet by mouth 2 times daily (with breakfast & dinner) for 30 days. aka: COREG ciprofloxacin 500 mg tablet Take 1 tablet by mouth Daily. aka: CIPRO Start: February 22, 2020 furosemide 80 mg tablet Take 1 tablet by mouth 2 times daily for 30 days. aka: LASIX melatonin 3 mg Tabs Take 1 tablet by mouth nightly as needed for Insomnia. sertraline 50 mg tablet Take 1 tablet by mouth Daily. aka: ZOLOFT Start: February 22, 2020 vancomycin 125 mg capsule Take 1 capsule by mouth 2 times daily. Indications: Clostridium difficile Bacteria Changed Medications Details insulin glargine 100 units/mL injection (pen) Inject 10 Units under the skin nightly. What changed: how much to take aka: LANTUS SOLOSTAR metoclopramide 10 mg tablet Take 1 tablet by mouth Twice daily as needed for Nausea. What changed: when to take this reasons to take this aka: REGLAN Unchanged Medications Details JEANETTE-ELLYNER HEARTBURN PO Dissolve 1 to 2 tablets in 4 ounces of water as needed for heartburn GLUCAGON EMERGENCY 1 MG injection Generic drug: glucagon Inject 1 mg into the muscle once. HYDROcodone-acetaminophen 10-325 mg per tablet Take 1 tablet by mouth 4 times daily. aka: NORCO hyoscyamine 0.[address] 0.125 mg under the tongue every 4 hours as needed for Cramping or Diarrhea. aka: LEVSIN insulin lispro 100 units/mL injection (pen) Inject under the skin 4 times daily (before meals and nightly). 1 unit for every 10 carbs aka: humaLOG KWIKPEN lisinopril 10 mg tablet Take 5 mg by mouth Daily. aka: PRINIVIL, ZESTRIL ondansetron 8 mg disintegrating tablet Take 8 mg by mouth 2 times daily. aka: ZOFRAN ODT pregabalin 100 mg capsule Take 100 mg by mouth 3 times daily as needed. For pain aka: LYRICA Discontinued Medications metoprolol tartrate 50 mg tablet aka: LOPRESSOR Activity: activity as tolerated Diet: diabetic diet Wound Care: home nursing ordered Follow-up with PCP in one week, nephrology in 10 days Signed: Savage Saavedra DO 02/21/2020 10:59 AM documented in this encounter Discharge Instructions Instructions Savage Saavedra DO - 02/19/2020New medications sent to your pharmacy i n [facility]. This includes: ~7 days of twice daily Vancomycin, ~5 days of once daily Ciprofloxacin, ~Lasix 80mg twice daily, ~carvedilol 25mg twice daily, ~sertraline daily. ~Lantus has been increased to 10 units daily. ~Please stop your metoprolol and lisinopril. ~Please have a blood draw in one week to check your kidney function and potassium levels, i n addition to blood counts. These results should be sent to your primary care provider in [place] and to Dr. Whitman, your new biology faculty member. Addendum: 1. Do not take your Lisinopril until you see Dr. Whitman, your It Corporate Recruiter. 2. You are very close to needing outpatient Hemodialysis, and you need to have a Consulta tion with a Vascular Surgeon, Drs. Sandoval and Bin, in [place], [place]. 3. Please avoid blood draws and BP in your Left arm, for your future AV fistula. 4. Your medications have changed slightly. Please follow the new list, until you meet wit h your PCP and It Corporate Recruiter. Probiotics Patient Discharge Information Sheet Probiotics are often thought of as "friendly bacteria" or "healthy bacteria." They are sim ilar to the bacteria that normally live inside of our body and play a role in helping to vanessa p the body working well. If you have been receiving antibiotics in the hospital, consider taking some form of a prob iotic once you are discharged. A reasonable approach is to take some form of probiotics for 5 days after antibiotics are completed. We have included some options below that may be more affordable and contain the types of ba cteria that have been found helpful in studies. If you have any concerns or questions about probiotics, or have a severe problem with your immune system, please discuss with your doctor. Recommended probiotic formulations commonly available in Pharmacies: ? VSL # 3: 1 capsule by mouth twice a day ? Culturelle: 1 capsule by mouth twice a day ? Provella: 1 capsule by mouth twice a day Dairy Product Options with Probiotics: ? Shannon's Kefir (many flavors available): 8 ounces per day ? Shannon's Organic Yogurt (many flavors available): 8 ounces per day ? Teller Fresh Yogurt (many flavors available): 6 ounces per day documented in this encounter Medications at Time of Discharge + + + +---------+ + + | Medication | Sig | Dispensed | Refills | Start | End Date | | | | | | Date | | + + + +---------+ + + | GLUCAGON EMERGENCY | Inject 1 mg into the | | 0 | 07/20/ | | | 1 MG injection | muscle once. | | | 18 | | + + + +---------+ + + | hyoscyamine | Place 0.125 mg under | | 0 | | | | (LEVSIN) 0.125 mg SL | the tongue every 4 | | | | | | tablet | hours as needed for | | | | | | | Cramping or | | | | | | | Diarrhea. | | | | | + + + +---------+ + + | ondansetron | Take 8 mg by mouth 2 | | 0 | | | | (ZOFRAN ODT) 8 mg | times daily. | | | | | | disintegrating | | | | | | | tablet | | | | | | + + + +---------+ + + | pregabalin | Take 100 mg by mouth | | 0 | | | | (LYRICA) 100 mg | 3 times daily as | | | | | | capsule | needed. For pain | | | | | + + + +---------+ + + | sertraline | Take 1 tablet by | 30 | 1 | 02/22/20 | | | (ZOLOFT) 50 mg | mouth Daily. | tablet | | 20 | | | tablet | | | | | | + + + +---------+ + + | carvedilol (COREG) | Take 1 tablet by | 60 | 0 | 02/21/20 | | | 25 mg tablet | mouth 2 times daily | tablet | | 20 | 0 | | | (with breakfast & | | | | | | | dinner) for 30 days. | | | | | + + + +---------+ + + | ciprofloxacin | Take 1 tablet by | 5 | 0 | 02/22/20 | | | (CIPRO) 500 mg | mouth Daily. | tablet | | 20 | 0 | | tablet | | | | | | + + + +---------+ + + | furosemide (LASIX) | Take 1 tablet by | 60 | 0 | 02/21/20 | | | 80 mg tablet | mouth 2 times daily | tablet | | 20 | 0 | | | for 30 days. | | | | | + + + +---------+ + + | | Take 1 tablet by | | 0 | 02/24/20 | | | HYDROcodone-acetamin | mouth 4 times daily. | | | 19 | 0 | | ophen (NORCO) 10-325 | | | | | | | mg per tablet | | | | | | + + + +---------+ + + | insulin glargine | Inject 10 Units | 1 pen | 0 | 02/21/20 | | | (LANTUS SOLOSTAR) | under the skin | | | 20 | 0 | | 100 units/mL | nightly. | | | | | | injection (pen) | | | | | | + + + +---------+ + + | insulin lispro | Inject under the | | 0 | | | | (HUMALOG KWIKPEN) | skin 4 times daily | | | | 0 | | 100 units/mL | (before meals and | | | | | | injection (pen) | nightly). 1 unit for | | | | | | | every 10 carbs | | | | | + + + +---------+ + + | lisinopril | Take 5 mg by mouth | | 0 | 09/16/20 | | | (PRINIVIL, ZESTRIL) | Daily. | | | 18 | 0 | | 10 mg tablet | | | | | | + + + +---------+ + + | melatonin 3 mg | Take 1 tablet by | 30 | 0 | 02/21/20 | | | TABS | mouth nightly as | tablet | | 20 | 0 | | | needed for Insomnia. | | | | | + + + +---------+ + + | metoclopramide | Take 1 tablet by | | 0 | 02/21/20 | | | (REGLAN) 10 mg | mouth Twice daily | | | 20 | 0 | | tablet | as needed for | | | | | | | Nausea. | | | | | + + + +---------+ + + | Sodium | Dissolve 1 to 2 | | 0 | | | | Bicarbonate-Citric | tablets in 4 ounces | | | | 0 | | Acid (JEANETTE-SELTZER | of water as needed | | | | | | HEARTBURN PO) | for heartburn | | | | | + + + +---------+ + + | vancomycin 125 mg | Take 1 capsule by | 14 | 0 | 02/21/20 | | | capsuleIndications: | mouth 2 times daily. | capsule | | 20 | 0 | | Clostridium | Indications: | | | | | | difficile | Clostridium | | | | | | | difficile Bacteria | | | | | + + + +---------+ + + documented as of this encounter Progress Roxie Gary DO - 02/20/2020 6:56 PM PDT [facility] [address] [place] [address] PROGRESS NOTE Pt. Name/Age/: Brooks Marquez 29 y.o. 1990 Med. Record Number: [id number] Date of admission: 02/15/2020 NEPHROLOGY HPI - Pt was seen at 0940. He is still minimally X-ferring, almost 100% assist, and inte rmittently depressed. I discussed with him about long wall shear operator tx options, of LTAC , Home , vs S NF. He is very argumentative and appears unrealistic about his home environment. I diplomati marcos suggested that he would not do well there. His diarrhea has slowed on Imodium. His GFR is low, but Stage 4, and does not meet threshol d to begin dialytic Rx at this point. I spoke to his Mom yesterday, who was receptive, radha jeffers, she verbally confirms that he has "not seen a It Corporate Recruiter in approx. one year." Lab Results Component Value Date POCGLU 123 (H) 02/20/2020 POCGLU 172 (H) 02/20/2020 POCGLU 154 (H) 02/20/2020 POCGLU 100 02/20/2020 EXAM: BP 142/90 | Pulse 87 | Temp 35.6 C (96.1 F) (Oral) | Resp 18 | Ht 1.88 m ( 6' 2") | Wt 72 kg (158 lb 11.7 oz) | SpO2 100% | BMI 20.38 kg/m Tmax 36.7 (Wt. increased 0.6 kg) Intake/Output Summary (Last 24 hours) at 02/20/2020 1856 Last data filed at 02/20/2020 1714 Gross per 24 hour Intake 730 ml Output 325 ml Net 405 ml Heart: Regular rate and rhythm, with no S3, S4, murmur or rub. Lungs: CTA bilaterally. Abdomen: Soft, flat, nontender, normoactive bowel sounds. Extremities: (+) decreased proximal muscle strength both upper and lower ext's, including LLE, at +3/5. bilateral elbow edema, no edema at Left leg, Left foot dressing is dry and intact. LAB: Recent Labs 02/20/20 0355 NA 143 K 3.9 CL 113* CO2 23 BUN 43* CREA 4.02* GFRNONAA 18* GLU 98 CALCIUM 7.2* PHOS 6.3* Recent Labs 02/20/20 0355 WBC 15.0* HGB 9.4* HCT 28.7* PLT 272 MCV 89.7 NEUPCT 74.1 LYMPCT 14.6* EOSPCT 2.1 Lab Results Component Value Date CRP 66.40 (H) 02/18/2020 IMPRESSION 1. EULOGIO, in the setting of Stage 4 CKD, 2 diabetic nephropathy-- his Scr may slowly impr ove with time. 2. FEN-- improved on bicitra. 3. HTN-- improved. 4. Type 1 DM, with nephropathy, severe retinopathy, and neuropathy-- appears of dubious c ontrol, longterm. 5. Diabetic foot ulcer, Left heel-- no evidence of osteo. on recent MRI, or fluid collect ions. Day #4 Meropenem. 6. Anemia 2 to CKD-- stable. Now on SQ, EPO, biweekly. 7. s/p Right BKA--- with generalized deconditioning. I discussed this with him about SNF, vs. LTAC, vs home. However, he is A&O x3, and is adamant about going home. 8. Diarrhea-- C. diff. carrier, e.g. Ag (+), Toxin (-). Likely has GI gastropathy, from d iabetic polyneuropathy, as well. 9. Situational depression-- slightly improved on sertraline. 10. Nicotine Addiction-- he is refusing Medical advice to quit. PLAN 1. Doubt that pt will do well in his home environment, however, he does not freely consent for LTAC or SNF. 2. I had a diplomatic, but detailed discussion today that he likely may require dialytic R x, e.g. HD, in next 90 days if GFR worsens permanently < 15 ml/min. No need for CLIENT EXPERIENCE CONSULTANT till the n. 3. He needs early construction of an AVF, not available here, with chcf of our only V ascular Surgeon. 4. Will discuss case with Hospitalist, and Care Managers. No simple solution, however, pt would be Best served in an LTAC, if he consents?? [facility] Stephanie Villa, PharmD - 02/20/2020 3:05 PM PDT . PHARMACY SERVICES: ADMISSION MEDICATION REVIEW Brooks Marquez is a 29 y.o. male admitted on 02/15/2020. Patient is not a reliable historian. Location of Patient when reviewed: MEDICAL FLOOR Patient s prior to admit medication and over the counter (OTC) medications/herbal supplem ents list obtained from: Verbal interview with who was name, strength, and directions X Verbal interview assisted by Mom-Gia who is a reliable historian (this person helps manage medications) X Patient not interviewed or unable to supply information due to: Mom helps him with medication-she know strength and dosages X Patient/family member provided A CURRENT MEDICATION LIST X Doctor's office: [facility] (PCP)- dose changes confirmed per current medication list X Pharmacy list names: [facility] ([facility]) X [facility] [employer] insurance reported information X Outside Information Vaccines up to date? 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 Saavedra Metoprolol tartrate 50 mg tablet Take 75 mg tablet by mouth daily Take 1 tablet by mouth d aily Patient's mom states dose was changed per Dr. Saavedra Ondansetron 8 mg tablet Take 1 tablet by mouth every 8 hours as needed for nausea Take 1 ta blet by mouth 2 times daily Patient's mom states patient takes 1 tablet daily Removed therapy: Medication: Prior to Admission Sig: Reason for Removal: Furosemide 40 mg tablet Take 1 tablet by mouth 2 times daily Discontinued per Dr. Saavedra Ranitidine 150 mg tablet Take 1 tablet by mouth daily Patient stopped taking due to recall Recreational Substances, Tobacco & Alcohol use/frequency: X Tobacco: 1.5 cigarettes daily X Recreational substances: Smokes Marijuana out of a cartridge as needed for nausea (patie nt's mom states he does not do this very much) Other: Patient's mom would like to know if there is a better heartburn medication for her son, he is currently using Jeanette [place] (sodium bicarbonate-citric acid.) Medication: Prior to Admission Sig: Patient taking differently AUTOMATED PROCESS OPERATOR as: Hydrocodone-Acetaminophen 10-325 mg tablet Take 1 tablet by mouth 4 times daily Patient's m om states patient takes 1 tablet by mouth every 3 hours as needed for pain Insulin glargine (Lantus) 100 units per ml Inject 6 units under the skin nightly Patient's mom states patient is using 3 units nightly due to low blood sugars. Insulin lispro (Humalog) 100 units per ml Inject under the skin 3 times daily (before meals ) and at night. 1 unit for every 10 carbs Patient's mom states patient is using as needed. H e checks his blood sugars every 2 hours, and they have been staying low. He only uses this m edication when his blood sugars are above 200. Metoclopramide 10 mg tablet Take 1 tablet by mouth 2 times daily Patient's mom states patie nt takes 1 tablet daily Best possible AUTOMATED PROCESS OPERATOR medication list after pharmacy review: PT REPORTED TAKING NOT TAKING Medication Sig Last Dose Dispense Doc. Provider GLUCAGON EMERGENCY 1 MG injection Inject 1 mg into the muscle once. Taking Historical Pro viderMD HYDROcodone-acetaminophen (NORCO) 10-325 mg per tablet Take 1 tablet by mouth 4 times kayleigh y. Taking Differently Historical ProviderMD hyoscyamine (LEVSIN) 0.[address] 0.125 mg under the tongue every 4 hours as n eeded for Cramping or Diarrhea. Taking Historical ProviderMD insulin glargine (LANTUS SOLOSTAR) 100 units/mL injection (pen) Inject 6 Units under the s kin nightly. Taking Differently 1 pen Willard Aldrich MD insulin lispro (HUMALOG KWIKPEN) 100 units/mL injection (pen) Inject under the skin 4 ranjit es daily (before meals and nightly). 1 unit for every 10 carbs Taking Differently Emmanuel Saavedra lisinopril (PRINIVIL, ZESTRIL) 10 mg tablet Take 5 mg by mouth Daily. Taking Emmanuel bradley metoclopramide (REGLAN) 10 mg tablet Take 10 mg by mouth 2 times daily. Taking Differently Historical ProviderMD metoprolol tartrate (LOPRESSOR) 50 mg tablet Take 50 mg by mouth Daily. Taking Emmanuel camacho ondansetron (ZOFRAN ODT) 8 mg disintegrating tablet Take 8 mg by mouth 2 times daily. Troy Bartholomew Historical Provider, pregabalin (LYRICA) 100 mg capsule Take 100 mg by mouth 3 times daily as needed. For pain Taking Emmanuel Saavedra Sodium Bicarbonate-Citric Acid (JEANETTE-SELTZER HEARTBURN PO) Dissolve 1 to 2 tablets in 4 ou nces of water as needed for heartburn Taking Historical Provider, Medication review performed and electronically signed by Kay Cleary, Machine Clipper 02/20/2020 12:34 PM Reviewed by Stephanie Ramirez, PharmD 02/20/2020 1:52 PM Savage Acuña, DO - 02/20/2020 1:27 PM PDTFormatting of this note might be different from the origi nal. [facility] PMG Hospitalist Progress Note Brooks Marquez is a 29 y.o. male ASSESSMENT and PLAN: Left foot diabetic ulcer - Serratia and S. Epidermidis -started on meropenem by nephro, switched to renally dosed Cipro on 02/19, anticipate 7 day total course -On examination with Doppler the patient has a Doppler pulse which is not compressible to 3 00 mmHg consistent with a calcified vessel. -MRI without evidence of osteomyelitis -recheck CRP in am Possible CAP vs. Pleural effusion -stable, no hypoxic failure -s/p Rocephin/Azith, the meropenem, then switched to renally dosed Ciprofloxacin on 02/19 Acute on chronic renal failure -Stage 4, nephro following, appreciate recs -plan for fistula placement as outpatient -continue lasix 160 PO BID at this time Anemia - stable -improved post transfusion of 2 units on morning of 02/17 -Likely secondary to chronic disease. -no noted hematochezia, melena, hematemesis Hyperkalemia - resolved -s/p bicarbonate/Kayexalate administration C. difficile indeterminate study -Has a positive PCR but negative toxin. -Given he is on meropenem and has diarrhea will continue oral vancomycin, started on 02/17, dosed at 125mg BID T1DM -continue lantus 10 BID, SSI, CC diet -s/p D10 drip SUBJECTIVE: No complaints of diarrhea, no CP, no worsening SOB, no fevers or chills, pain controlled, n o other acute complaints, other 10 point ROS negative. VITALS: Temp: 36.1 C (96.9 F), Pulse: 90, Resp: 20, BP: 150/90, SpO2 98 % on room air at flow r ate L/min Temp Min: 36.1 C (96.9 F) Max: 36.7 C (98 F) Weight: 70.4 kg (155 lb 1.6 oz) Intake/Output Summary (Last 24 hours) at 02/20/2020 1327 Last data filed at 02/19/2020 2245 Gross per 24 hour Intake 280 ml Output 300 ml Net -20 ml PHYSICAL EXAM: General: Fatigued male, appears older than stated age Cardiovascular: Regular rate and rhythm Respiratory: Clear bilaterally Abdomen: Soft without tenderness Extremities: No edema, RLE BKA. Wound to lateral surface LLE, covered, no surrounding cellu litis DIAGNOSTIC STUDIES: Available data and images were reviewed personally. Significant results and findings are a ddressed here or in the Assessment and Plan. Lab Results Component Value Date HGB 9.4 (L) 02/20/2020 HCT 28.7 (L) 02/20/2020 LABPLAT 370 02/15/2020 PLT 272 02/20/2020 WBC 15.0 (H) 02/20/2020 Lab Results Component Value Date NA 143 02/20/2020 K 3.9 02/20/2020 CL 113 (H) 02/20/2020 CO2 23 02/20/2020 CREA 4.02 (H) 02/20/2020 BUN 43 (H) 02/20/2020 MG 1.6 01/10/2020 PHOS 6.3 (H) 02/20/2020 CRP 66.40 (H) 02/18/2020 ESR 28 (H) 02/18/2020 BNP 229 (H) 02/19/2020 Glucose, POC Date/Time Value Ref Range Status 02/20/2020 12:39 PM 172 (H) 70 - 109 mg/dL Final 02/20/2020 07:25 AM 154 (H) 70 - 109 mg/dL Final 02/20/2020 03:40 AM 100 70 - 109 mg/dL Final Glucose, POC Date/Time Value Ref Range Status 02/20/2020 12:39 PM 172 (H) 70 - 109 mg/dL Final 02/20/2020 07:25 AM 154 (H) 70 - 109 mg/dL Final 02/20/2020 03:40 AM 100 70 - 109 mg/dL Final Xr Chest Ap Portable Result Date: 02/19/2020 XR CHEST AP PORTABLE 02/19/2020 5:54 AM HISTORY: acute renal failure. COMPARISON: Multiple p riors. Findings: Heart size is within normal limits. Aorta is normal. Mediastinum demonstrat es no acute findings. Central pulmonary vasculature is normal. Stable moderate opacity and a irspace disease are in the right lower lobe that may represent atelectasis or pneumonia. The left lung is clear. There are no acute osseous abnormalities. Stable moderate opacity and airspace disease in the right lower lobe that may represent ate lectasis or pneumonia. Dictated and Signed by: Zenon Cruz MD Electronically signed: 2019 9:06 AM Mri Foot Left Wo Contrast Result Date: 02/19/2020 EXAM: MRI FOOT LEFT WO CONTRAST dated 02/15/2020 10:36 PM HISTORY: diabetic abscess , Left heel. COMPARISON: None. TECHNIQUE: Multiplanar multisequence MR imaging of the left hindfoot utilizing STIR and T1 sequences. Imaging is performed on a 3 Kacie MRI. FINDINGS: The raul ent has had partial amputation of the fifth digit the level of the proximal metatarsal. Ther e are no areas of altered T1 or STIR signal to suggest active osteomyelitis. There is diffus e subcutaneous edema. There is diffuse hyperintensity throughout the musculature of the true t. There is no focal fluid collection. There is no joint effusion. The major tendons withi n the [id number] are grossly intact. No evidence for osteomyelitis. Diffuse cellulitis. Muscle signal consistent with diabetic n europathy versus myositis. Dictated and Signed by: Neri Ley MD Electronically fariba d: 02/19/2020 2:12 PM Total time of approximately 30 minutes was spent with the patient and/or patient's family, and/or on the patient's floor/unit, of which more than 50% was spent counseling and/or coord ination the patient's care as outlined above. Savage Saavedra DO 02/20/2020 1:27 PM [facility] Portions of this chart may have been created with Square voice recognition software. Occasi onal wrong-word or sound-alike substitutions may have occurred due to the inherent lin itations of voice recognition software. Please read the chart carefully and recognize, using context, where these substitutions have occurred Romelia Acuña DO - 02/19/2020 11:31 AM PDTFormatting of this note might be different from the or iginal. [facility] PMG Hospitalist Progress Note Brooks Marquez is a 29 y.o. male ASSESSMENT and PLAN: 1. Possible CAP vs. Pleural effusion -stable, no hypoxic failure -s/p Rocephin/Azith, now on meropenem as started for foot ulcer 2. Acute on chronic renal failure -Stage 4, nephro following -plan for fistula placement as outpatient -continue lasix 160 PO BID 3. Anemia -improved post transfusion of 2 units on morning of 02/17 -Likely secondary to chronic disease. -no noted hematochezia, melena, hematemesis 4. Hyperkalemia - resolved -s/p bicarbonate/Kayexalate administration 5. Left foot diabetic ulcer -started on meropenem by nephro -On examination with Doppler the patient has a Doppler pulse which is not compressible to 3 00 mmHg consistent with a calcified vessel. -MRI pending 6. C. difficile indeterminate study -Has a positive PCR but negative toxin. -Given he is on meropenem and has diarrhea will continue oral vancomycin, started on 02/17 7. T1DM -continue lantus 10 BID, SSI, CC diet -s/p D10 drip SUBJECTIVE: No diarrhea currently, no fevers or chills, tolerating diet as long as eats slowly, notes d ifficulty with urinary stream, no other acute complaints. VITALS: Temp: 36.8 C (98.2 F), Pulse: 89, Resp: 18, BP: (!) 160/98, SpO2 96 % on room air at fl ow rate L/min Temp Min: 36.2 C (97.1 F) Max: 36.9 C (98.5 F) Weight: 70.4 kg (155 lb 1.6 oz) Intake/Output Summary (Last 24 hours) at 02/19/2020 1131 Last data filed at 02/19/2020 0700 Gross per 24 hour Intake 1338 ml Output 425 ml Net 913 ml PHYSICAL EXAM: General: Fatigued male appearing older than stated age Cardiovascular: Regular rate and rhythm Respiratory: Clear bilaterally Abdomen: Soft without tenderness Extremities: Without edema, RLE BKA. Wound to lateral surface LLE, covered, no surrounding cellulitis DIAGNOSTIC STUDIES: Available data and images were reviewed personally. Significant results and findings are a ddressed here or in the Assessment and Plan. Lab Results Component Value Date HGB 9.6 (L) 02/19/2020 HCT 29.3 (L) 02/19/2020 LABPLAT 370 02/15/2020 PLT 286 02/19/2020 WBC 14.4 (H) 02/19/2020 Lab Results Component Value Date NA 140 02/19/2020 K 4.1 02/19/2020 CL 110 (H) 02/19/2020 CO2 22 02/19/2020 CREA 3.77 (H) 02/19/2020 BUN 42 (H) 02/19/2020 MG 1.6 01/10/2020 PHOS 6.3 (H) 02/19/2020 CRP 66.40 (H) 02/18/2020 ESR 28 (H) 02/18/2020 BNP 229 (H) 02/19/2020 Glucose, POC Date/Time Value Ref Range Status 02/19/2020 06:37 AM 254 (H) 70 - 109 mg/dL Final 02/19/2020 01:00 AM 231 (H) 70 - 109 mg/dL Final 02/18/2020 09:42 PM 253 (H) 70 - 109 mg/dL Final Glucose, POC Date/Time Value Ref Range Status 02/19/2020 06:37 AM 254 (H) 70 - 109 mg/dL Final 02/19/2020 01:00 AM 231 (H) 70 - 109 mg/dL Final 02/18/2020 09:42 PM 253 (H) 70 - 109 mg/dL Final Xr Chest Ap Portable Result Date: 02/19/2020 XR CHEST AP PORTABLE 02/19/2020 5:54 AM HISTORY: acute renal failure. COMPARISON: Multiple p riors. Findings: Heart size is within normal limits. Aorta is normal. Mediastinum demonstrat es no acute findings. Central pulmonary vasculature is normal. Stable moderate opacity and a irspace disease are in the right lower lobe that may represent atelectasis or pneumonia. The left lung is clear. There are no acute osseous abnormalities. Stable moderate opacity and airspace disease in the right lower lobe that may represent ate lectasis or pneumonia. Dictated and Signed by: Zenon Cruz MD Electronically signed: 2019 9:06 AM Total time of approximately 30 minutes was spent with the patient and/or patient's family, and/or on the patient's floor/unit, of which more than 50% was spent counseling and/or coord ination the patient's care as outlined above. Savage Saavedra DO 02/19/2020 11:31 AM [facility] Portions of this chart may have been created with [employer] voice recognition software. Occasi onal wrong-word or sound-alike substitutions may have occurred due to the inherent lin itations of voice recognition software. Please read the chart carefully and recognize, using context, where these substitutions have occurred Shannan Sage DO - 02/19/2020 9:57 AM PDTFormatting of this note might be different from the origi nal. [facility] [address] [place] [address] PROGRESS NOTE Pt. Name/Age/: Brooks Marquez 29 y.o. 1990 Med. Record Number: [id number] Date of admission: 02/15/2020 NEPHROLOGY HPI - Pt seen at 0900. Had a better nite. Seeing PT today. His BP is trending up the las t 48 Hrs. He appears less depressed today? I spoke with Micro. Apparently, wound Cx re plated but is growing GNR, and some coag. neg. Staph. Both to be ID'd further later. BG is trending up on the D10W, may be worth DC'ing. Lab Results Component Value Date POCGLU 254 (H) 02/19/2020 POCGLU 231 (H) 02/19/2020 POCGLU 253 (H) 02/18/2020 POCGLU 166 (H) 02/18/2020 EXAM: BP (!) 160/98 | Pulse 89 | Temp 36.8 C (98.2 F) (Oral) | Resp 18 | Ht 1.88 m (6' 2") | Wt 74.1 kg (163 lb 5.8 oz) | SpO2 96% | BMI 20.97 kg/m Tmax 36.9 (Wt. increased 0.6 kg) Intake/Output Summary (Last 24 hours) at 02/19/2020 0958 Last data filed at 02/19/2020 0700 Gross per 24 hour Intake 1338 ml Output 425 ml Net 913 ml Heart: Regular rate and rhythm with (+)S4, no S3, murmur or rub. Lungs: CTA bilaterally. Abdomen: Soft, flat, nontender, normoactive bowel sounds. Extremities: (+) decreased proximal muscle strength both upper and lower ext's, including LLE, at +3/5. bilateral elbow edema, no edema at Left leg, Left foot dressing is dry and intact. LAB: Recent Labs 02/19/20 0448 NA 140 K 4.1 CL 110* CO2 22 BUN 42* CREA 3.77* GFRNONAA 19* GLU 238* CALCIUM 7.3* PHOS 6.3* Recent Labs 02/19/20 0448 WBC 14.4* HGB 9.6* HCT 29.3* PLT 286 MCV 89.9 NEUPCT 77.0 LYMPCT 14.5* EOSPCT 0.8 IMPRESSION 1. EULOGIO, superimposed on Stage 4 CKD, 2 diabetic nephropathy-- no overt symptoms of uremi a, however, GFR is low. I discussed with him at length, that he may require maintenance HD, Outpatient in [facility], when his GFR is permanently < 15 ml/min. 2. FEN-- acidosis improved on Bicitra, and hyperkalemia are better. He will need Both las ix and Bicitra, after DC. 3. HTN-- his BP is trending upward. Will titrate up his Carvedilol and lasix. [ACEI, fern nopril, has been on HOLD, to see if Scr would cass further]. (His I/O is likely less reliable at this point, as he does not have a gallo?) 4. Type 1 DM-- will DC, D10W, as BG trending upward. 5. Diabetic foot ulcer, Left heel-- GNR and coag. neg. staph, per Micro. WBC is falling o n Meropenem. Doubt osteomyelitis, with current CRP, and ESR? Day #3 Meropenem. 6. Anemia 2 to CKD-- Hb better. May have had occult GI bleeding earlier on his low dose, SQ , heparin? 7. s/p Right BKA--- with generalized deconditioning. I discussed this with him about SNF, vs. LTAC, vs home. However, he is A&O x3, and is adamant about going home. 8. Diarrhea-- C. diff. carrier, e.g. Ag (+), Toxin (-). Likely has GI gastropathy, from d iabetic polyneuropathy, as well. 9. Situational depression-- slightly improved on sertraline. PLAN 1. Increase the Carvedilol to 25 mg, BID. 2. Increase lasix to 160 mg, BID. 3. OK for DC soon from renal Standpoint. He has an Appt. with Dr. Winston Whitman, his 1 Neph rologist, 03/03/20, in his [place] [facility]. 4. Will need Blood test next week, e.g. Renal Panel, CBC, to follow up on lab. 5. May be prudent to defer DC planning to AM, 02/[address] in [address]? Discusse d above with Dr. Saavedra. [facility] Roxie Sgae DO - 02/18/2020 4:07 PM PDT . [facility] [address] [place], [place] [id number] PROGRESS NOTE Pt. Name/Age/: Brooks Marquez 29 y.o. 1990 Med. Record Number: [id number] Date of admission: 02/15/2020 NEPHROLOGY HPI - Pt seen at 0900. He appears less despondent than yesterday. His Hb had an unexpected fall overnight. However, he denies hematemesis, melena, coffee ground emesis, or BRBPR. He is not eating a much, and not getting out of bed, at all. Overall, he is fairly sedentar y and weak. His BP is tending upward overnight but is being salt loaded from oral and IV NaHCO3 and citrate Rx. Lab Results Component Value Date POCGLU 117 (H) 02/18/2020 POCGLU 118 (H) 02/18/2020 POCGLU 41 (L) 02/18/2020 POCGLU 34 (LL) 02/18/2020 EXAM: BP (!) 157/101 | Pulse 89 | Temp 36.7 C (98.1 F) (Oral) | Resp 18 | Ht 1.8 8 m (6' 2") | Wt 73.5 kg (162 lb 0.6 oz) | SpO2 98% | BMI 20.80 kg/m Tmax 36.9 (Wt. increased 2.1 kg) Intake/Output Summary (Last 24 hours) at 02/18/2020 1608 Last data filed at 02/18/2020 1200 Gross per 24 hour Intake 2989 ml Output 300 ml Net 2689 ml Heart: Regular rate and rhythm with no S3, S4, murmur or rub. Lungs: CTA bilaterally. Abdomen: Soft, flat, nontender, normoactive bowel sounds. Extremities: (+) bilateral elbow edema, no edema at Left leg, Left foot dressing is dry a nd intact. LAB: Recent Labs 02/18/20 0523 NA 144 K 3.9 CL 114* CO2 22 BUN 43* CREA 3.83* GFRNONAA 19* GLU 71 CALCIUM 6.9* PHOS 5.7* Recent Labs 02/18/20 1357 02/18/20 0523 WBC -- 16.1* HGB 9.3* 5.7* HCT 29.0* 18.0* PLT -- 347 MCV -- 94.2 NEUPCT -- 71.1 LYMPCT -- 18.2* EOSPCT -- 2.2 IMPRESSION 1. EULOGIO superimposed on Stage 4 CKD, 2 diabetic nephropathy-- Scr is slowly falling. He appears to be now becoming volume expanded. 2. FEN-- hypernatremia is better. He is in (+) fluid balance, and Na-citrate, NaHCO3 appea r to be expanding the ECF volume to the point of aggravating his HTN. Could DC IV NaHCO3 at this point? Also, will add a loop diuret ic as wt. , edema, ECF volume slowly increasing? 3. Type 1 DM-- stable. 4. Diabetic foot ulcer, Left heel--no organisms in gram stain; Day#2 Meropenem. 5. Anemia 2 to CKD-- cannot exclude subacute GI bleeding?? Will hold SQ heparin for no w till picture is clearer. 6. s/p Right BKA--- with generalized deconditioning. 7. HTN-- will resume some lasix, and add carvedilol for now. 8. Diarrhea-- will attempt to slow with Imodium. 9. Situational depression-- now on sertraline. PLAN 1. PT, OT, to improve deconditioning. 2. His SCr is slowly improving, although I discussed with Alin that his CKD is fairly adv anced. 3. Agree with PRBC's. Will DC heparin SQ. H/H ordered for later. 4. I discussed DC planning, and Alin is adamant that he go back home with his Mom, Ajit travis. However, will need to ensure Hb is stable , prior to that. [facility] Javon Dong M D - 02/18/2020 7:32 AM PDT [facility] PMG Hospitalist Progress Note Brooks Marquez is a 29 y.o. male ASSESSMENT and PLAN: 1. Concern for community-acquired pneumonia Chest x-ray from yesterday shows hazy density in the right lung base which appears to be fl uid on lateral film in the costovertebral space. Currently no obvious source for infection is clear. Chest x-ray is not overly worrisome for pneumonia and the patient's left foot kajal ears relatively clean cellulitis albeit in renal failure he certainly could have deep infect ion. Switch to meropenem with ceftriaxone and azithromycin discontinued yesterday per Dr. Zee grover. 2. Acute on chronic renal failure Patient denies history of recent vomiting. He reports some chronic loose bowels but no juan c nge in behavior otherwise. FENa yesterday was 3.1. His history is that of dehydration he i s currently 5500 cc positive. BNP up slightly to 200 but the patient is on chest exam into the bases. 3. Anemia Likely secondary to chronic disease. He denies a history of blood in his stools or vomitin g but reports he does not routinely look at his BMs. Hemoglobin this a.m. is 5.7 and will g edna 2 additional units of blood over 2 hours each following volume status. 4. Hyperkalemia Resolved with bicarbonate/Kayexalate administration 5. Left foot diabetic ulcer No surrounding erythema. No Palpable AUTOMATED PROCESS OPERATOR. On examination with Doppler the patient has a Do ppler pulse which is not compressible to 300 mmHg consistent with a calcified vessel. MRI p lanned today to assess for deep infection. 6. C. difficile indeterminate study Has a positive PCR but negative toxin. Given he isn meropenem and has diarrhea will start oral vancomycin SUBJECTIVE: Patient reports profound fatigue. Denies any recent fevers. He does have a left foot woun d which is been followed in a [place] [facility]. Reports diarrhea has improved. VITALS: Temp: 36.2 C (97.2 F), Pulse: 97, Resp: 20, BP: (!) 178/99, SpO2 99 % on room air at fl ow rate L/min Temp Min: 36.1 C (96.9 F) Max: 36.2 C (97.2 F) Weight: 70.4 kg (155 lb 1.6 oz) Intake/Output Summary (Last 24 hours) at 02/18/2020 0722 Last data filed at 02/18/2020 0641 Gross per 24 hour Intake 2369 ml Output 102 ml Net 2267 ml PHYSICAL EXAM: General: Fatigued male appearing older than stated age Cardiovascular: Regular rate and rhythm Respiratory: Clear bilaterally Abdomen: Soft without tenderness Extremities: Without edema. Right BK amputation noted.(exam 02/16 left foot) Left foot juarez ws the plantar surface laterally a full-thickness wound which does not have surrounding cell ulitis. I cannot palpate the patient's AUTOMATED PROCESS OPERATOR and on Doppler examination AUTOMATED PROCESS OPERATOR is easily heard and not c ompressible to 300 mmHg DIAGNOSTIC STUDIES: Available data and images were reviewed personally. Significant results and findings are a ddressed here or in the Assessment and Plan. Lab Results Component Value Date HGB 5.7 (LL) 02/18/2020 HCT 18.0 (LL) 02/18/2020 LABPLAT 270 03/16/2019 PLT 347 02/18/2020 WBC 16.1 (H) 02/18/2020 Lab Results Component Value Date NA 144 02/18/2020 K 3.9 02/18/2020 CL 114 (H) 02/18/2020 CO2 22 02/18/2020 CREA 3.83 (H) 02/18/2020 BUN 43 (H) 02/18/2020 MG 1.6 01/10/2020 PHOS 5.7 (H) 02/18/2020 CRP 66.40 (H) 02/18/2020 ESR 28 (H) 02/18/2020 BNP 223 (H) 02/18/2020 Glucose, POC Date/Time Value Ref Range Status 02/18/2020 07:08 AM 89 70 - 109 mg/dL Final 02/18/2020 06:46 AM 47 (L) 70 - 109 mg/dL Final 02/17/2020 08:54 PM 224 (H) 70 - 109 mg/dL Final Glucose, POC Date/Time Value Ref Range Status 02/18/2020 07:08 AM 89 70 - 109 mg/dL Final 02/18/2020 06:46 AM 47 (L) 70 - 109 mg/dL Final 02/17/2020 08:54 PM 224 (H) 70 - 109 mg/dL Final Us Renal Complete Result Date: 02/16/2020 US RENAL COMPLETE 02/16/2020 11:40 AM HISTORY: EULOGIO on CKD. COMPARISON: None. PROTOCOL: Wayne scale and Doppler images of the kidneys and bladder. FINDINGS: Right Kidney: Several small n onobstructing echogenic stones are visualized within the collecting system. There is no hydr onephrosis. Resistive index is 0.56, normal. Size of the kidney is 4.4 x 6.5 x 7.1 cm. Left Kidney: Several small nonobstructing echogenic stones are visualized within the collecting s ystem. There is no hydronephrosis. Resistive index is 0.54, normal. Size of the kidney is 12 .1 x 6.4 x 6.3 cm. Bladder: Echogenic mobile debris is noted within the bladder lumen. Postv oid residual is 26 mL. Ureteral jets are seen on the right and left. Mild abdominal ascites is seen. Bilateral pleural effusions are partially imaged. Nonobstructing stones of bilateral kidneys with no evidence for hydronephrosis. Debris with in bladder lumen. Mild abdominal ascites. Partially imaged bilateral pleural effusions. Dict ated and Signed by: Zenon Cruz MD Electronically signed: 02/16/2020 3:38 PM Xr Chest Ap Portable Result Date: 02/16/2020 XR CHEST AP PORTABLE 02/16/2020 8:43 AM HISTORY: ARF. COMPARISON: 01/05/2020. Findings: Heart size is within normal limits. Aorta is normal. Mediastinum demonstrates no acute findings. Central pulmonary vasculature is normal. Moderate opacity and airspace disease are in the ri ght lower lobe that may represent atelectasis or pneumonia. The left lung is clear. There ar e no acute osseous abnormalities. Moderate opacity and airspace disease in the right lower lobe that may represent atelectasi s or pneumonia. Dictated and Signed by: Zenon Cruz MD Electronically signed: 02/16/2020 2: 53 PM Total time of approximately 30 minutes was spent with the patient and/or patient's family, and/or on the patient's floor/unit, of which more than 50% was spent counseling and/or coord ination the patient's care as outlined above. Javon Faust MD 02/18/2020 7:33 AM [facility] Portions of this chart may have been created with [employer] voice recognition software. Occasi onal wrong-word or sound-alike substitutions may have occurred due to the inherent lin itations of voice recognition software. Please read the chart carefully and recognize, using context, where these substitutions have occurred Roxie Sage D O - 02/17/2020 2:49 PM PDT [facility] [address] [place] [address] PROGRESS NOTE Pt. Name/Age/: Brooks Marquez 29 y.o. 1990 Med. Record Number: [id number] Date of admission: 02/15/2020 NEPHROLOGY HPI - Pt seen at 1030. He was very despondent and emotional at that time. He was asking v igorously, if there is any way that his Mom, whom is his 1 Caregiver could visit him. He d enies anorexia or hiccups. I looked closer at his Left, posterolateral heel which has an ~2 -3 cm deep ulcer, with pink base, some celeste, fibrinopurulent exudate. No odor. I sent a gram stain, C&S from the apex. It does not appear to tunnel. Lab Results Component Value Date POCGLU 218 (H) 02/17/2020 POCGLU 95 02/17/2020 POCGLU 80 02/16/2020 POCGLU 262 (H) 02/16/2020 EXAM: BP 139/87 | Pulse 99 | Temp 36.2 C (97.2 F) (Oral) | Resp 18 | Ht 1.88 m ( 6' 2") | Wt 71.4 kg (157 lb 6.4 oz) | SpO2 98% | BMI 20.21 kg/m Tmax 36.2 (Wt. increased 1 kg) Intake/Output Summary (Last 24 hours) at 02/17/2020 1449 Last data filed at 02/17/2020 1333 Gross per 24 hour Intake 3680 ml Output 777 ml Net 2903 ml Heart: Regular rate and rhythm with no S3, S4, murmur or rub. Lungs: CTA bilaterally. Abdomen: Soft, flat, nontender, normoactive bowel sounds. Extremities: (+) bilateral elbow edema, no edema at Left leg, (+) Left post, lat. ulcer, as above; (+) very dry skin, both lower ext.'s? LAB: Recent Labs 02/17/20 0432 NA 147* K 4.7 CL 119* CO2 18* BUN 42* CREA 3.92* GFRNONAA 18* GLU 76 CALCIUM 7.7* PHOS 6.4* Recent Labs 02/17/20 0431 WBC 18.8* HGB 8.6* HCT 27.4* PLT 393 MCV 95.1 NEUPCT 78.0 LYMPCT 12.3* EOSPCT 1.9 IMPRESSION 1. EULOGIO in pt with Stage 4 CKD, 2 diabetic nephropathy-- not clearly pre-renal. My gut fe eling is that this could equally be progression of his background CKD. No symptoms of uremi a currently. Hyperkalemia is better but still with a non-AG, MA. 2. FEN-- he appears to have developed hypernatremia during Rx for his non-AG, metabolic ac idosis. I agree with DC the NS, and using less IV NaHCO3.[ If his SNa+ worsens will calcu late his FWD, and would consider using D5W alone, at that point?] 3. Type 1 DM-- stable. 4. Diabetic foot ulcer, Left heel-- sent for gram stain, C&S. Would favor starting empiri c coverage for this and DC empiric AB's for alleged CAP, as no infiltrate on CXR and pt whitley es cough. 5. Anemia 2 to CKD-- on EPO. 6. s/p Right BKA--- he appears to have generalized deconditioning. 7. Diarrhea-- no evidence of CDI. Therefore, will slow the stool output with Imodium , as Mr. Marquez is very unhappy about his diarrhea today. 8. Situational depression-- pt is very clinically depressed today? PLAN 1. Again, gm stain, C&S sent of heel abscess. 2. Would favor changing to Meropenem to cover GPC, GNR's, and anaerobes per the Pharmacy. Would consider IV Meropenem, DAY #1? Will confer with Dr. Faust, Hospitalist, also. 3. Observe ECF volume, electrolytes daily. 4. Try SSRI for his situational depression. 5. Pt would strongly desire to have a visit from his Mom, his 1 Caregiver? Will request from Nursing? [facility] Rita Forrester RN - 02/17/2020 1:35 PM PDTVascular Access Team Note- Following Infusion Nurses Society standards of care; 20 gauge 10cm length BARD PowerGlide P ro midline catheter placed x 1 stick with ultrasound guidance. Catheter inserted to 9cm with 1 cm external. Draws bright red blood briskly, flushes easily with normal saline. Pt with mild rash/excoriation noted about 4 inch diameter on inner upper ar- midline dressing is cov ering some of this, but pt states he is not usually sensitive to adhesives.Sterile dressing applied. Report to ANNETTE Knott who continues care. Thank you for this referral. Electronically signed by: Rita Ellsworth RN 02/17/2020 1:38 PM Javon Dong MD - 02/17/2020 10:56 AM PDT [facility] PMG Hospitalist Progress Note Brooks Marquez is a 29 y.o. male ASSESSMENT and PLAN: 1. Concern for community-acquired pneumonia Chest x-ray from yesterday shows hazy density in the right lung base which appears to be fl uid on lateral film in the costovertebral space. He did have a white count of 19,000 on adm ission but denies fevers. Currently is on ceftriaxone and azithromycin and discontinue a az ithromycin given this does not appear to be the source of infection. 2. Acute on chronic renal failure Patient denies history of recent vomiting. He reports some chronic loose bowels but no juan c nge in behavior otherwise. FENa yesterday was 3.1. His history is that of dehydration he i s a 3200 cc positive. Continue with aggressive IV fluids following his exam twice daily for overload. 3. Anemia Likely secondary to chronic disease. He denies a history of blood in his stools or vomitin g but reports he does not routinely look at his BMs. He is received 1 unit of packed red bl ood cells with initiation IV iron and erythropoietin. 4. Hyperkalemia Resolved with bicarbonate/Kayexalate administration 5. Left foot diabetic ulcer No surrounding erythema. No Palpable AUTOMATED PROCESS OPERATOR. On examination with Doppler the patient has a Do ppler pulse which is not compressible to 300 mmHg consistent with a calcified vessel. SUBJECTIVE: Patient reports profound fatigue. Denies any recent fevers. He does have a left foot woun d which is been followed in a [place] foot clinic VITALS: Temp: 36.2 C (97.2 F), Pulse: 99, Resp: 18, BP: 139/87, SpO2 98 % on room air at flow r ate L/min Temp Min: 35.5 C (95.9 F) Max: 36.8 C (98.2 F) Weight: 70.4 kg (155 lb 1.6 oz) Intake/Output Summary (Last 24 hours) at 02/17/2020 1057 Last data filed at 02/17/2020 0636 Gross per 24 hour Intake 3680 ml Output 675 ml Net 3005 ml PHYSICAL EXAM: General: Fatigued male appearing older than stated age Cardiovascular: Regular rate and rhythm Respiratory: Clear bilaterally Abdomen: Soft without tenderness Extremities: Without edema. Right BK amputation noted. Left foot shows the plantar surfac e laterally a full-thickness wound which does not have surrounding cellulitis. I cannot palpate the patient's AUTOMATED PROCESS OPERATOR and on Doppler examination AUTOMATED PROCESS OPERATOR is easily heard and not c ompressible to 300 mmHg DIAGNOSTIC STUDIES: Available data and images were reviewed personally. Significant results and findings are a ddressed here or in the Assessment and Plan. Lab Results Component Value Date HGB 8.6 (L) 02/17/2020 HCT 27.4 (L) 02/17/2020 LABPLAT 270 03/16/2019 PLT 393 02/17/2020 WBC 18.8 (H) 02/17/2020 Lab Results Component Value Date NA 147 (H) 02/17/2020 K 4.7 02/17/2020 CL 119 (H) 02/17/2020 CO2 18 (L) 02/17/2020 CREA 3.92 (H) 02/17/2020 BUN 42 (H) 02/17/2020 MG 1.6 01/10/2020 PHOS 6.4 (H) 02/17/2020 BNP 154 (H) 02/17/2020 Glucose, POC Date/Time Value Ref Range Status 02/17/2020 06:35 AM 95 70 - 109 mg/dL Final 02/16/2020 08:26 PM 80 70 - 109 mg/dL Final 02/16/2020 12:31 PM 262 (H) 70 - 109 mg/dL Final Glucose, POC Date/Time Value Ref Range Status 02/17/2020 06:35 AM 95 70 - 109 mg/dL Final 02/16/2020 08:26 PM 80 70 - 109 mg/dL Final 02/16/2020 12:31 PM 262 (H) 70 - 109 mg/dL Final Us Renal Complete Result Date: 02/16/2020 US RENAL COMPLETE 02/16/2020 11:40 AM HISTORY: EULOGIO on CKD. COMPARISON: None. PROTOCOL: Wayne scale and Doppler images of the kidneys and bladder. FINDINGS: Right Kidney: Several small n onobstructing echogenic stones are visualized within the collecting system. There is no hydr onephrosis. Resistive index is 0.56, normal. Size of the kidney is 4.4 x 6.5 x 7.1 cm. Left Kidney: Several small nonobstructing echogenic stones are visualized within the collecting s ystem. There is no hydronephrosis. Resistive index is 0.54, normal. Size of the kidney is 12 .1 x 6.4 x 6.3 cm. Bladder: Echogenic mobile debris is noted within the bladder lumen. Postv oid residual is 26 mL. Ureteral jets are seen on the right and left. Mild abdominal ascites is seen. Bilateral pleural effusions are partially imaged. Nonobstructing stones of bilateral kidneys with no evidence for hydronephrosis. Debris with in bladder lumen. Mild abdominal ascites. Partially imaged bilateral pleural effusions. Dict ated and Signed by: Zenon Cruz MD Electronically signed: 02/16/2020 3:38 PM Xr Chest Ap Portable Result Date: 02/16/2020 XR CHEST AP PORTABLE 02/16/2020 8:43 AM HISTORY: ARF. COMPARISON: 01/05/2020. Findings: Heart size is within normal limits. Aorta is normal. Mediastinum demonstrates no acute findings. Central pulmonary vasculature is normal. Moderate opacity and airspace disease are in the ri ght lower lobe that may represent atelectasis or pneumonia. The left lung is clear. There ar e no acute osseous abnormalities. Moderate opacity and airspace disease in the right lower lobe that may represent atelectasi s or pneumonia. Dictated and Signed by: Zenon Cruz MD Electronically signed: 02/16/2020 2: 53 PM Total time of approximately 30 minutes was spent with the patient and/or patient's family, and/or on the patient's floor/unit, of which more than 50% was spent counseling and/or coord ination the patient's care as outlined above. Javon Faust MD 02/17/2020 10:57 AM [facility] Portions of this chart may have been created with Square voice recognition software. Occasi onal wrong-word or sound-alike substitutions may have occurred due to the inherent lin itations of voice recognition software. Please read the chart carefully and recognize, using context, where these substitutions have occurred arker, Javon Guerra MD - 0 02/16/2020 8:20 AM PDT [facility] PMG Hospitalist Progress Note Brooks Marquez is a 29 y.o. male ASSESSMENT and PLAN: 1. Concern for community-acquired pneumonia Chest x-ray from yesterday shows hazy density in the right lung base which appears to be fl uid on lateral film in the costovertebral space. He did have a white count of 19,000 on adm ission but denies fevers. Currently is on ceftriaxone and azithromycin and these will be co ntinued. 2. Acute on chronic renal failure Patient denies history of recent vomiting. He reports some chronic loose bowels but no juan c nge in behavior otherwise. Will obtain a fractional excretion of sodium and currently he wa s admitted on 100 cc of carbonate solution 150 mEq/h. Going to increase this to 150 cc/h fo r now and will obtain a BNP with his repeat hemoglobin. The patient's had a noticeable fall and bicarb from 14 January to 13 currently. His anion gap is only slightly increased. We wi ll check a beta hydroxybutyrate looking for some starvation ketosis and a diabetic out a sig nificant increase in anion gap believe this is likely associated with chronic kidney disease . With hyperchloremia he may be a candidate for chronic oral bicarbonate therapy. Patient is followed in [place]. No AV fistula has been placed yet. 3. Anemia Likely secondary to chronic disease. He denies a history of blood in his stools or vomitin g but reports he does not routinely look at his BMs. Order stool Hemoccult. Has had 1 unit of packed red blood cells and apparently has a hemoglobin pending. 4. Hyperkalemia Patient on a bicarb drip which should help correct the potassium of 5.7. Going to give 2 d oses of Kayexalate. SUBJECTIVE: Patient reports profound fatigue. He was assessed by his PCP yesterday and then admitted w ith the finding of a hemoglobin of 6.6. He denies fevers at home. Not had any change in grey wel habits and has not noted blood in his stools or black tarry stools. VITALS: Temp: 36.2 C (97.2 F), Pulse: 98, Resp: 18, BP: (!) 164/98, SpO2 100 % on room air at f low rate L/min Temp Min: 35.9 C (96.6 F) Max: 36.4 C (97.5 F) Weight: 70.4 kg (155 lb 1.6 oz) Intake/Output Summary (Last 24 hours) at 02/16/2020 0820 Last data filed at 02/16/2020 0629 Gross per 24 hour Intake 365 ml Output 225 ml Net 140 ml PHYSICAL EXAM: General: Fatigued male appearing older than stated age Cardiovascular: Regular rate and rhythm Respiratory: Clear bilaterally Abdomen: Soft without tenderness Extremities: Without edema. Right BK amputation noted. DIAGNOSTIC STUDIES: Available data and images were reviewed personally. Significant results and findings are a ddressed here or in the Assessment and Plan. Lab Results Component Value Date HGB 6.6 (LL) 02/16/2020 HCT 21.9 (L) 02/16/2020 LABPLAT 270 03/16/2019 PLT 409 02/16/2020 WBC 19.4 (H) 02/16/2020 Lab Results Component Value Date NA 140 02/16/2020 K 5.7 (H) 02/16/2020 CL 117 (H) 02/16/2020 CO2 13 (L) 02/16/2020 CREA 4.02 (H) 02/16/2020 BUN 38 (H) 02/16/2020 MG 1.6 01/10/2020 PHOS 5.3 (H) 01/08/2020 Glucose, POC Date/Time Value Ref Range Status 02/16/2020 06:43 AM 296 (H) 70 - 109 mg/dL Final 01/10/2020 11:36 AM 100 70 - 109 mg/dL Final 01/10/2020 11:03 AM 57 (L) 70 - 109 mg/dL Final Glucose, POC Date/Time Value Ref Range Status 02/16/2020 06:43 AM 296 (H) 70 - 109 mg/dL Final 01/10/2020 11:36 AM 100 70 - 109 mg/dL Final 01/10/2020 11:03 AM 57 (L) 70 - 109 mg/dL Final No results found. Total time of approximately 30 minutes was spent with the patient and/or patient's family, and/or on the patient's floor/unit, of which more than 50% was spent counseling and/or coord ination the patient's care as outlined above. Javon Faust MD 02/16/2020 8:20 AM [facility] Portions of this chart may have been created with [employer] voice recognition software. Occasi onal wrong-word or sound-alike substitutions may have occurred due to the inherent lin itations of voice recognition software. Please read the chart carefully and recognize, using context, where these substitutions have occurred documented in this enc ounter H&P Notes Meggan Cary MD - 02/16/2020 12:04 AM PDT HISTORY AND PHYSICAL Pt. Name/Age/: Brooks Marquez 29 y.o. 1990 Date of admission: 02/15/2020 Admitting Physician: Meggan Cary MD Primary Care Provider: Emmanuel Saavedra Information Source: patient, past medical records and ED report Information Review: active problem list, notes from last encounter, lab results, imaging ASSESSMENT / PLAN: Acute kidney injury on chronic CKD - has diabetic and likely hypertensive nephropathy at basline - dec PO in take, weakness in the past 5 days with no sick contacts - hyperkalemia, metabolic acidosis, mild hyperglycemia on bmp - ca gluconate, insulin/glc now for elevated K - start IVF with bicarb, renal will see later Acute on chronic anemia - anemia of chronic disease and iron deficient, - retic elevated, B12and folic acid normal, - iron panel form 02/14: Fe 18, TIBC 145, transferrin 103.9, and 12.5% saturation COVID PUI - rapid screen negative CAP - RLL infiltrate on CXR, WBC 14.6, 76% neutrophils, no bands - s/p Levaquin OSH and blood cultures x2 were obtained - Start azithromycin and ceftriaxone Hypertension - hold ARB, restart homed meds Chronic pain - continue prn [place] Chronic left foot ulcer -Does not appear to be source of infection at this time, granulation tissue, no erythema or acute signs of infection Thrush - nystatin Discussed smoking cessation Diet: renal and diabetic DVT Prophylaxis heparin monitor closely due to anemia Code Status does have advanced directives, and it is his wish to have resuscitative efforts at tempted in case of cardiopulmonary arrest. As such, he will be deemed Full Code. [facility] Documentation I expect this patient will be hospitalized for greater than 2-midnights and expect the post -hospital plan to be discharge to home or to an adult foster home. [facility] Documentation I expect this patient will be hospitalized for greater than 2-midnights and expect the post -hospital plan to be discharge to home or to an adult foster home. I expect this patient will be discharged or transferred in less than 96 hours Chief Complaint: Abnormal labs History of Present Illness: This is a 29 y.o. 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 He had routine home health labs drawn on 02/14 and his PCP recommended he present to the ED. His hemoglobin was 7.3 (8-8.5) and creatinine 4.2 (~2.6) around 2.At the outside hospital the labs were c onsistently abnormal and he was transferred here for higher level of care. Patient reports he has been feeling progressively weak over the past few months. He has been unable to stand since September and is having added difficulty transferring in and out of the wheelchair wit hout assistance. He reports decreased appetite and feeling weaker especially in the last 5 d ays. He has continued chronic diarrhea and exacerbation of chronic pain. He reports no fev er or chills, travel, or exposure to sick contacts. ED/OSH He was afebrile, HR 104, BP 137/107, 100% on RA. WBC 17, 82% neutrophils, hgb 7.3, Na 139, K 5.9, Mg 1.8, LFTs unremarkable. Blood ultures were obtained. He received Levaquin x1 and 1 L NS bolus. Past Medical and Surgical History: Past Medical History: Diagnosis Date Abdominal pain Arthritis Bowel dysfunction Chronic kidney disease Diabetes (HCC) Dizziness Healed ulcer of left foot on examination Heart palpitations Hypertension Kidney stone Onychomycosis Retinopathy Stress headaches Past Surgical History: Procedure Laterality Date ELBOW SURGERY Right LEG AMPUTATION BELOW KNEE URETEROSCOPY Right 09/19/2018 Procedure: CYSTOSCOPY W/ URETEROSCOPY W/ LASER LITHOTRIPSY WITH STENT PLACEMENT; Surgeon: Tc Mora MD; Location: [facility] MAIN OR Medications Prior to Admission: AUTOMATED PROCESS OPERATOR Home Medications Medication Sig furosemide (LASIX) 40 mg tablet Take 40 mg by mouth 2 times daily. GLUCAGON EMERGENCY 1 MG injection Inject 1 mg into the muscle once. HYDROcodone-acetaminophen (NORCO) 10-325 mg per tablet Take 1 tablet by mouth 4 times d aily. hyoscyamine (LEVSIN) 0.[address] 0.125 mg under the tongue every 4 hours a s needed for Cramping or Diarrhea. insulin glargine (LANTUS SOLOSTAR) 100 units/mL injection (pen) Inject 6 Units under th e skin nightly. insulin lispro (HUMALOG KWIKPEN) 100 units/mL injection (pen) Inject under the skin 3 t imes daily (before meals) and at night 1 unit for every 10 carbs lisinopril (PRINIVIL, ZESTRIL) 10 mg tablet Take 1 tablet by mouth 2 times daily. metoclopramide (REGLAN) 10 mg tablet Take 10 mg by mouth 2 times daily. metoprolol tartrate (LOPRESSOR) 50 mg tablet Take 75 mg by mouth 2 times daily. ondansetron (ZOFRAN ODT) 8 mg disintegrating tablet Take 8 mg by mouth every 8 hours as needed for Nausea. pregabalin (LYRICA) 100 mg capsule Take 100 mg by mouth 3 times daily as needed. For pa in raNITIdine (ZANTAC) 150 mg tablet Take 150 mg by mouth Daily. Allergies: Allergies Allergen Reactions Codeine Nausea And Vomiting Reaction: Projectile vomit Personal / Social History: Social History Socioeconomic History Marital status: Single Spouse name: Not on file Number of children: Not on file Years of education: Not on file Highest education level: Not on file Tobacco Use Smoking status: Current Every Day Smoker Types: Cigarettes Smokeless tobacco: Never Used Substance and Sexual Activity Alcohol use: No Drug use: Yes Types: Marijuana Comment: daily Sexual activity: Yes Partners: Female control/protection: Condom Family History: Family History Problem Relation Age of Onset Stroke Mother Thyroid disease Mother Heart disease Mother Hypertension Father Bipolar disorder Brother Heart disease Other Grandfather Hypertension Other Grandfather Colon cancer Other Grandfather Hypertension Other Congenital heart disease Other Stroke Other Other (see comment) Other Breast cancer gene BRCA mutation Diabetes Other Kidney disease Other Thyroid disease Other Bipolar disorder Other Prostate cancer Maternal Grandfather Review of Systems: Review of Systems Constitutional: Negative for chills and fever. HENT: Negative for congestion and sore throat. Eyes: Positive for blurred vision. Respiratory: Negative for cough and shortness of breath. Cardiovascular: Negative for chest pain. Gastrointestinal: Positive for diarrhea. Negative for nausea and vomiting. Musculoskeletal: Positive for back pain, joint pain and myalgias. Negative for falls. Skin: Positive for rash. Neurological: Positive for dizziness, weakness and headaches. Physical Examination: Vital Signs: Temp: 35.9 C (96.6 F), Pulse: 108, Resp: 16, BP: 140/86, SpO2 100 % on room air at flow rate L/min Temp Min: 35.9 C (96.6 F) Max: 35.9 C (96.6 F) , There is no height or weight on file to calculate BMI. Physical Exam Constitutional: He is oriented to person, place, and time. He appears distressed. Laying in bed, not in distress HENT: Head: Atraumatic. Mouth/Throat: Oropharynx is clear and moist. No oropharyngeal exudate. Poor dentition, thrush Eyes: Conjunctivae and EOM are normal. No scleral icterus. Neck: Neck supple. Cardiovascular: Normal rate. Murmur heard. Pulmonary/Chest: Effort normal. No respiratory distress. He has no wheezes. Diminished bibasilar sounds Abdominal: Soft. Bowel sounds are normal. He exhibits no distension. There is no abdominal tenderness. There is no rebound. Musculoskeletal: General: No tenderness or edema. Comments: Right BKA, on plantar aspect of left foot along 1st MTP joint, chronic wound w ith minimal drainage, no acute signs of infection Neurological: He is alert and oriented to person, place, and time. Skin: Skin is dry. Diagnostic Studies: Available data and images were reviewed personally. Significant results and findings are a ddressed here or in the Assessment and Plan. LABS: see above EKG: Reviewed independently by me. No acute ST changes. No peaked T waves IMAGING: CXR with right LL infiltrate was seen by me on 02/16/20, and 75 minutes were required to complete the admission process. I have formulated the differential diagnosis that needs to be addressed in this v isit and the plan of care. These were discussed with the patient. I have also discussed th e risks and benefits of all treatment modalities planned and determined to be appropriate du ring this hospital visit. All questions were answered satisfactorily. Electronically signed by: Meggan Cary MD 02/16/2020 Portions of this chart may have been created with Square voice recognition software. Occasi onal wrong-word or sound-alike substitutions may have occurred due to the inherent lin itations of voice recognition software. Please read the chart carefully and recognize, using context, where these substitutions have occurred documented in this encounter Consult Notes Annie Davis RN - 02/17/2020 3:38 PM PDTPatient positive NAAT only for C. Difficile , indicating colonization, negative for toxin. Patient does not require contact enteric isol ation unless there is indication of clinical disease, and loose stools. Electronically signed by: Annie Davis RN 02/17/2020 3:39 PM oxie Murrell DO - 02/16/2020 12:12 PM PDT [place] [address] [place] [address] NEPHROLOGY CONSULT Pt. Name/Age/: Brooks Marquez 29 y.o. 1990 Med. Record Number: [id number] Date of admission: 02/15/2020 Reason for consultation: EULOGIO in the setting of CKD Referring Provider: Javon Faust MD HPI: Asked to see this 29 YOWM who was transferred from the ER at [facility], [place] last devendra medrano. Apparently, he was at home asymptomatic, when screening lab was obtained for a future office appointment and his PCP asked him to come to the ER. He denies fever, cough, chills , sputum production but has had diarrhea "4-5 times per day" for the last 5 to 6 days. He h as a history of known Stage 3 CKD which is followed by his Primary It Corporate Recruiter, Dr. Winston dinero, in [place]. Apparently, his Scr was above his previous baseline and he had mild hype rkalemia therefore it was elected to send him to [facility]. It appears that his previous Scr wa s 1.77 mg/dl, on 06/10/2019, he subsequently had EULOGIO surrounded by an episode of DKA at [facility] on 01/06/2020 with peak Scr = 4.16 which improved to 2.67 mg/dl at discharge. He then prese nted to [facility] yesterday with a Scr = 4.24 mg/dl and today it is 4.03 mg/dl. His UO overnight = 425 ml. He denies hiccups, nausea, encephalopathy or pruritus with this. Renal Ultrasou nd is not available at this point. Urine electrolytes are available which show a Hector+ = 64 mEq/L with FENa+ = 3.11% (>2) which is compatible either with EULOGIO or baseline CKD of this s tage? Apparently, he does have known macroalbuminuria with his CKD and his recent UACR obtained at [facility] is very abnormal from the transfer records available with a urine Pro/Cr = 8669 mg/g which suggests established diabetic nephropathy and heavy macroalbuminuria. He states that he was diagnosed with Type 1 DM at Age 11, and has known diabetic retinopathy. He states that this has been followed closely by his Data Center Engineer, but he has not yet had to have laser surgery for his retinopathy. He also admits to Hypertension x 3 years. It is noteworthy that he has been very appropriately treated with an ACEI, lisinopril for some time. He understands that he does have established CKD from his discussions with both Dr. Can cornell and Dr. Whitman, his It Corporate Recruiter's in the past, he tells me. He has been given IV Na HCO3, IV Ca++ overnight to improve his hyperkalemia. Currently, he is conversant and in NAD . He was screened for COVID-19 although he has not had any documented fever or subjective c omplaints of fever per the patient? He denies any new meds, IV contrast, serendipitous NSAI D use, hematuria, dysuria or flank pain with this. PAST MEDICAL HISTORY: 1. Stage III CKD secondary to macroalbuminuria, and known diabetic glomerulosclerosis. Se e above. 2. Longstanding type I DM, diagnosed at age 11 now treated with SQ Lantus + Humalog AC and at bedtime, with probable nephropathy, retinopathy and neuropathy. He has not been seen by an Professional Builder in the past, but states that he has an approaching appointment with 1 in the next 6 months in the [facility]. Additionally has had previous admissions for DK A here at [facility] most recently on 01/05-01/09. 3. Hypertension x 3 years per the patient. 4. Apparently history of severe diabetic gastroparesis in the past. He has even been seen at the digestive [facility] for the intractable gastroparesis at [facility]. 5. Normochromic, normocytic anemia suspicious for anemia secondary to CKD. He states he h as not been treated with KINJAL therapy in the past. PAST SURGICAL HISTORY: 1. 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 Outpatient Medications Marked as Taking for the 02/15/20 encounter (Hospital Encounter) Medication Sig Dispense Refill furosemide (LASIX) 40 mg tablet Take 40 mg by mouth 2 times daily. GLUCAGON EMERGENCY 1 MG injection Inject 1 mg into the muscle once. HYDROcodone-acetaminophen (NORCO) 10-325 mg per tablet Take 1 tablet by mouth 4 times d aily. 0 hyoscyamine (LEVSIN) 0.[address] 0.125 mg under the tongue every 4 hours a s needed for Cramping or Diarrhea. insulin glargine (LANTUS SOLOSTAR) 100 units/mL injection (pen) Inject 6 Units under th e skin nightly. 1 pen 0 insulin lispro (HUMALOG KWIKPEN) 100 units/mL injection (pen) Inject under the skin 3 t imes daily (before meals) and at night 1 unit for every 10 carbs lisinopril (PRINIVIL, ZESTRIL) 10 mg tablet Take 1 tablet by mouth 2 times daily. metoclopramide (REGLAN) 10 mg tablet Take 10 mg by mouth 2 times daily. metoprolol tartrate (LOPRESSOR) 50 mg tablet Take 75 mg by mouth 2 times daily. ondansetron (ZOFRAN ODT) 8 mg disintegrating tablet Take 8 mg by mouth every 8 hours as needed for Nausea. pregabalin (LYRICA) 100 mg capsule Take 100 mg by mouth 3 times daily as needed. For pa in raNITIdine (ZANTAC) 150 mg tablet Take 150 mg by mouth Daily. Allergies Allergen Reactions Codeine Nausea And Vomiting Reaction: Projectile vomit SOCIAL HISTORY: Smoking: (+) Admits to smoking 6 cigarettes/day times last 15 years. ETOH: Denies. ; previously lived independently with his mother. 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 FAMILY HISTORY: Father: Alive, age 55 and reportedly in good health. Mother: Alive, age 55 but had a lobectomy of the lung for unclear reasons? He is unsure if his mother had lung CA? No history of CKD in his parents. 1 Brother: Alive and reportedly in good health. 2 () Sisters: Both alive and reportedly in good health. No history of CKD in his sibling s. REVIEW OF SYSTEMS: General: He denies fatigue, fever, night sweats, or weight loss in the last 6 months. HEENT: He denies headache, diplopia, blurred vision, epistaxis, sinusitis, or pharyngitis. Cardiovascular: He denies chest pain, palpitations, orthopnea, or PND. Pulmonary: He denies cough, hemoptysis, wheezing, or shortness of breath. GI: He denies nausea vomiting, epigastric pain, melena, hematemesis, hematochezia, or kat ge in bowel habits. : He denies dysuria, hematuria, frequency, flank pain, or nocturia. Endocrine: He denies polydipsia, polyuria, temperature intolerance, or thyroid disorders. Hematologic: He denies rashes, purpura, bleeding gums, or easy bruising. Musculoskeletal: He denies joint pain, arthralgias, synovitis, or any new deformity. Neuropsychiatric: He denies seizures, syncope, depression, or suicidal ideation. PHYSICAL EXAMINATION: BP (!) 164/98 | Pulse 98 | Temp 36.2 C (97.2 F) (Temporal) | Resp 18 | Ht 1.88 m (6 ' 2") | Wt 70.4 kg (155 lb 1.6 oz) | SpO2 100% | BMI 19.91 kg/m Intake/Output Summary (Last 24 hours) at 02/16/2020 1240 Last data filed at 02/16/2020 1018 Gross per 24 hour Intake 715 ml Output 425 ml Net 290 ml General: This is a thin, WD 29 YO white male who is alert and oriented x3, and in NAD. HEENT: Normocephalic. Pupils are 2.5 mm /2.5 mm and reactive. EOMI. Fundoscopic exam was not performed. Posterior pharynx is clear, without injection. Neck: JVP's are flat at 45, no thyromegaly. Cardiovascular: Regular rate and rhythm, with no S3, S4, murmur or rub. Lungs: CTA in all hassan. No rales or wheezes. Abdominal: Soft, very flat, nontender, no guarding, NABS, no organomegaly, no bruit. Extremities: Healed right BKA, no clubbing, cyanosis, or asterixis. (+) dry epidermis both lower extremities. Neurological: (+) decreased sensation left foot? Otherwise, nonfocal, nonlateralizing. SpO2: 100 % on room air Lab Results Component Value Date NA 141 02/16/2020 K 5.3 (H) 02/16/2020 CL 117 (H) 02/16/2020 CO2 14 (L) 02/16/2020 BUN 50 (H) 02/16/2020 CREA 4.11 (H) 02/16/2020 GFRNONAA 17 (L) 02/16/2020 GLU 242 (H) 02/16/2020 CALCIUM 7.3 (L) 02/16/2020 PHOS 5.3 (H) 01/08/2020 MG 1.6 01/10/2020 Lab Results Component Value Date IRON 14 (L) 02/16/2020 PCTSAT 11.8 (L) 02/16/2020 FERRITIN 480 (H) 01/06/2020 Lab Results Component Value Date HBA1C 8.8 (H) 06/10/2019 Lab Results Component Value Date WBC 19.4 (H) 02/16/2020 HGB 7.6 (L) 02/16/2020 HCT 25.0 (L) 02/16/2020 PLT 409 02/16/2020 MCV 98.6 02/16/2020 NEUPCT 79.5 02/16/2020 LYMPCT 13.1 (L) 02/16/2020 EOSPCT 0.8 02/16/2020 IMPRESSION 1. Nonoliguric EULOGIO, in setting of background Stage III CKD secondary to known diabetic gl omerulosclerosis, with macroalbuminuria--his urine electrolytes are not completely consisten t with a prerenal picture although he appears volume contracted on exam? Additionally, this could represent progression of his background CKD. 2. Non-Anion gap, metabolic acidosis--his history would be more compatible with GI loss of HCO3, given his recent history of diarrhea? Agree with IV NaHCO3. He also may benefit fro m oral Bicitra, long-term, to combat chronic metabolic acidosis. 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 3. 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 He may benefit from additional input from an Professional Builder at some point? 4. Leukocytosis with diarrhea, no fever, no chills--PCXR today is not convincing for CAP? Differential diagnosis also includes UTI, or C. difficile colitis?, as apparently the raul ent was being treated with doxycycline as an outpatient, per the transfer records? 5. H/O hypertension--previously on lisinopril. PLAN 1. Obviously, no need for dialysis at this point. Although, I did have a jackelin discussio n with Alin that he does appear to have established CKD which is worsening over time. 2. Agree with IV NaHCO3, + would add some IV NS for now as he appears ECF volume contracte d on exam. 3. His iron profile just came back this AM, and his T Sat, ferritin are low. Therefore, w ill begin IV Fe replacement while simultaneously beginning some KINJAL therapy with weekly SQ, EPO, for his anemia. 4. Would favor sending 1 stool specimen for C. difficile screen, antigen, although he did have some Kayexalate last P.M., apparently. 5. Await his PCR for COVID-19, although his history, especially lack of fever is uncharact eristic for that? 6. Agree with holding his ACEI, lisinopril until Scr is improving. However, that is an ex cellent drug for him long-term both for its cardioprotective and renal protective effects. 7. Will review the renal US, and urine sediment when available. Thank you for the chance to see this very interesting patient. Will follow the patient wit h you. [facility] CC: MD Emmanuel Powell MD Fadi Akoum, MD, BRII documented in thi s encounter Miscellaneous Notes Plan of Care - Colin Parkinson RN - 02/21/2020 2:47 PM PDTPt complaining of generalized pain, reports pain improves with oral pain meds. Pt discharging to home with home health ca re services. Pt able to transfer to his home wheelchair with moderate assistance. RN revie wed discharge summary with patient. Pt verbalized understanding. Pt discharged to home brandon galarza all belongings. Transport service set up to get pt home. Midline IV removed before pt di scharge. lan of Care - Shannon Bradford PTA - 02/21/2020 1:17 PM PDTTherapy Plan of Care Missed Visit Note Patient Information Patient Name: Brooks Marquez Date of : 1990 Age: 29 y.o. The patient was unable to be seen for today's scheduled visit due to unavailable. Patient s tated he just got his shot and still needs to eat lunch. Patient planning to discharge from hospital at 3:00. Unable to return later this date. Plan: If patient does not d/c continue with POC. Electronically signed by: Shannon Bradford PTA, 02/21/2020 1:17 PM Electronically fariba d by Shannon Bradford PTA at 02/21/2020 1:18 PM PDTPlan of Guilherme Jennifer Nolasco MS W - 02/21/2020 12:11 PM PDTOrders for patient to discharge today. Phone call to [facility], transportation set up for 1500 today. Phone call to patient's mom, made aware of discharge date and time, mom agreeable with discharge. In to see patient, informed of dis charge, patient agreeable. HH order faxed to Darion Sanchez . Phone call to Steve Sanchez, confirmed receip t of the referral, informed of discharge for today. Plan: Home with mom and home health today. Electronically signed by: LYDIA Olivares 02/21/2020 12:13 PM lan of Guilherme - Merna Nelson RN - 2019 6:47 PM PDTPatient alert and oriented x4. No complaints of pain or discomfort. On co ntact enteric isolation. PT got him up for lunch in . 1-person assist with the transfer. Patient refused to have rectal tube placed. Encouraged application of barrier cream on hi s bottom. Uses bed cooley. VSS. 6: 50 PM PDTPlan of Guilherme Carmina Bourgeois OT - 02/20/2020 1:50 PM PDTFormatting of this no te might be different from the original. Patient Identification Brooks Marquez is a 29 y.o. male. : 1990 Admit Date: 02/15/2020 Attending Provider: Savage Saavedra DO WOUND CARE CONSULT Subjective: Reason for Consultation: management recommendations. Follow up visit Objective: Reassessed the left lateral foot wound. The wound is showing good signs of wound contracti on, edges are flattening and good progress toward healing is noted. The pink wound bed is a pprox 0.4 x 0.7 x shallow. Beefy red wound bed, new epithelialization noted surrounding thi s area that is approx 1.3 cm x 1.0 cm. Overall, wound edges are softening and flattening, w ound contraction and blanchable alexis wound noted. The 5th MT head wound has softened significantly. Approx 1/3 of the slough has been remove d through the use of the hydocolloid. Cleansed wounds with saline and gauze. Applied skin barrier to alexis wounds, placed hydroc olloid (duoderm) over the eschar on the 5th MT head, placed small adhesive edged foam dress ing over this wound. Assessment: No changes in staging or type of wound from last visit Plan: Sacral wound- Cleanse, skin barrier to alexis wound. Cover with hydrocolloid (Duoderm). This will encourage autolytic debridement in order to see the depth of the wound. Change every 2 -3 days and as needed. Once white slough is gone, and pink to red wound bed is noted, then s witch dressing to foam dressing. Left lateral foot- Cleanse with wound cleanser, skin barrier to alexis wound, (no longer need s aquacel in wound bed) Cover with foam dressing. Change every 2-3 days, and as needed. Small toe MT head - Cleanse, cover with hydrocolloid (Duoderm) to promote autolytic debride ment, change every 2-3 days, and as needed lan of Care - Shannon Solomon PTA - 02/20/2020 11:31 AM PDTFormatting of this note might be different fr om the original. 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 Emphasis of session included functional mobility training with focus on bed mobility, trans fers and sitting balance/tolerance. Patient demonstrates progress towards functional goals as evidenced by progression of functional mobility and transfer to w/c. RN cleared patient for participation in therapy. Patient was agreeable to therapy. Patient participated without adverse reaction. RN debriefed on therapy session and patient status. I t is encouraged that the patient be up in chair for all meals. Recommended mobility with nursing: Day Night bed cooley and bedside commode bed cooley Wheelchair Wheelchair contact guard assistance with 2 people and verbal cues contact guard assistance with 2 peo ple and tactile cues Remaining barriers to discharge and functional limitations include decreased insight into s afety and deficits, decreased functional activity tolerance, decreased bed mobility, decreas ed functional transfers, decreased functional gait distance, decreased gait velocity, not ye t able to mobilize at level safe for home discharge, and medical status. Brooks will benefit from continued therapeutic intervention to address ongoing impairments and increase safety and independence with activities necessary for safe discharge. Refer be low for specific details regarding functional levels. Physical Therapy Discharge Recommendations are: Recommended discharge disposition: care home facility Post discharge physical therapy recommendation: family involved/supportive, will benefit f rom structured setting, outpatient therapy, ongoing low intensity therapy Equipment Recommendations: wheelchair, wheelchair components (comment), wheelchair cushion , transfer board Planned Interventions: balance training, bed mobility training, gait training, home exerci se program, lumbar stabilization, joint mobilization, manual therapy techniques, prosthetic fitting/training, postural re-education, patient/family education, orthotic fitting/training , neuromuscular re-education, motor coordination training, ROM (Range of Motion), strengthen ing, stretching, romanian ball techniques, transfer training, wheelchair management/propulsion training Recommended Frequency: (5-7x/wk) Patient Status/Goals: Reflects last filed data and may be from multiple contributors. Transfers Transfer bed to w/c. discussed use of slide board, patient reports he does not normally use one and is able to do a slide transfer without. 2P present for safety. Patient assisted in set up of chair and was able to complete transfer bed to w/c with extra time and effort. anibal se SBA for general safety. Bed-Chair, Level of [place]: contact guard assist, verbal cues required, set up requir ed Dtl-[id number]-Wxj, Assistive Device: wheelchair Impairments: impaired balance, strength decreased, decreased flexibility, motor control imp aired Bed Mobility Patient mobilizes slowly. with extra time and effort able to complete bed mobility supine t o EOB without physical assistance. 2P present for safety Assistive Device: bed rails, HOB elevated Roll Left, Level of [place]: contact guard assist, set up required, verbal cues requir ed Roll Right, Level of [place]: contact guard assist, verbal cues required, set up requi red Supine to Sit, Level of [place]: contact guard assist, verbal cues required Safety Issues: decreased use of legs for bridging/pushing, impaired trunk control for bed m obility, decreased use of arms for pushing/pulling Impairments: strength decreased, impaired balance, ROM decreased, motor control impaired, p ostural control impaired Functional Endurance fair- for activities completed. PT Goal Review Date Most Recent Value STG Review Date 02/26/20 at 02/19/2020 0933 Roll Left/Right Goal Most Recent Value STG Status progressing at 02/20/2020 1131 STG [place] Level modified independent at 02/19/2020 0933 STG Assistive Device bed rails, HOB elevated at 02/19/2020 0933 [id number] Goal Most Recent Value STG Status progressing at 02/20/2020 1131 STG [place] Level modified independent at 02/19/2020 0933 STG Assistive Device HOB elevated, bed rails at 02/19/2020 0933 [id number]-Ibw Goal Most Recent Value STG Status progressing at 02/20/2020 1131 STG [place] Level modified independent at 02/19/2020 0933 STG Assistive Device 2 wheeled walker (FWW), sliding board at 02/19/2020 0933 Del-[id number]-[id number] Goal Most Recent Value STG Status new at 02/19/2020 0933 STG [place] Level modified independent at 02/19/2020 0933 STG Assistive Device 2 wheeled walker (FWW), wheelchair, prosthesis at 02/19/2020 0933 Wheelchair Goal Most Recent Value STG Status new at 02/19/2020 0933 STG Patient will demonstrate supervised while self-propelling manual wheelchair 50 feet on level and even surfaces at 02/19/2020 0933 PT Time Calculation Individual Start Time: 1003 Individual Stop Time: 1022 Individual Total Time: 19 PT Additional Treatment Time: Co-treatment PT Co-treatment Start Time: 1100 PT Co-treatment Stop Time: 1130 PT Co-treatment Total Time: 30 PT Total Treatment Time: 30 Timed [place] Code Minutes: 15 Electronically signed by: Shannon Bradford PTA, 02/20/2020 3:02 PM lan of Care - Lindsay Garcia OT - 11:29 AM PDT Occupational Therapy Plan of Care Treatment Note Summary: Brooks has been participating in occupational therapy for treatment of Impaired BADLs, impaired basic functional mobility, impaired functional activity tolerance following admit w/ acute on chronic renal failure; anemia; hypokalemia; DM foot ulcer L foot . Emphas is of session included LB dressing for pant donning, bed mobility, EOB>wc tf, and UB dressin g. Discussed with pt benefits of intensive therapies at a facility in comparison to therapie s at home. Pt would greatly benefit from ongoing high intensity OT at facility. However if he dcs home, recommending home with assist and home health OT. Patient demonstrates progress towards functional goals as evidenced by met LB dressing and UB dressing goals. RN cleared patient for participation in therapy. Patient was agreeable to therapy. Patient participated without adverse reaction. RN debriefed on therapy session and patient status. I t is encouraged that the patient be up in chair for all meals. Recommended toileting with nursing: Day Night bedpan bedpan No Assistive Device No Assistive Device stand by assistance stand by assistance Remaining barriers to discharge and functional limitations include decreased functional act ivity tolerance, decreased bed mobility, decreased functional transfers, decreased ability t o perform ADLs, decreased ability to perform IADLs, decreased ability to perform medication management, demonstrating need for 24/7 supervision, and medical status. Brooks will benefit from continued therapeutic intervention to address ongoing impairments and increase safety and independence with activities necessary for safe discharge. Refer be low for specific details regarding functional levels. Occupational Therapy Discharge Recommendations are: Recommended discharge disposition: (Pt would greatly benefit from ongoing high intensity O T at a facility. However, if pt dcs home, recommending home with assist. ) Post discharge occupational therapy recommendation: other (see comment)(Pt would greatly b enefit from ongoing high intensity OT at facility. However if he dcs home, recommending home with assist and home health OT) Equipment Recommendations: (Has manual w/c w/ elevating leg rest RUE; powered bath seat th at will lower him into tub; FWW; commode; hospital bed; lift chair coming; some kind of new manual w/c. ) Planned Interventions:ADL retraining, balance training, bed mobility training, patient/fami ly education, strengthening, transfer training, discharge planning Recommended Frequency: 3 times/wk, 5 times/wk Patient Status/Goals: Reflects last filed data and may be from multiple contributors. ADLs Setup for pt to doff gown, don personal shirt from seated in wc level. Pt commented on BUE deconditioning affecting UB dressing UB Dressing, Level of [place]: set up required Assistive Device: none UB Dressing Assess/Train, Position: sitting UB Dressing Impairments: decreased flexibility, ROM decreased, strength decreased, impaired functional endurance/activity tolerance Assist for threading shorts at LLE though otherwise pt able to roll L/R in bed for bringing shorts up the rest of the way. LB Dressing, Level of [place]: minimal assist (75% patient effort), 1 person + 1 perso n to manage equipment, set up required, verbal cues required Assistive Device: none LB Dressing Assess/Train, Position: (from bed level) LB Dressing Impairments: decreased flexibility, ROM decreased, strength decreased, impaired balance Functional Endurance Fair activity tolerance overall Cognitive Pt cooperative for OT/PT cotreatment and discussion regarding discharge disposition/associa alissa therapies Bed Mobility Extra time/effort throughout. Incidental assist for supine>sit to get LLE unstuck from bed. 2P present throughout for safety Assistive Device: bed rails, HOB elevated Roll Left, Level of [place]: contact guard assist, set up required, verbal cues requir ed, 1 person + 1 person to manage equipment Roll Right, Level of [place]: contact guard assist, verbal cues required, set up requi red, 1 person + 1 person to manage equipment Supine to Sit, Level of [place]: contact guard assist, verbal cues required, set up re quired, 1 person + 1 person to manage equipment Safety Issues: decreased use of legs for bridging/pushing, impaired trunk control for bed m obility, decreased use of arms for pushing/pulling Impairments: strength decreased, impaired balance, ROM decreased, motor control impaired, p ostural control impaired Transfers Discussed with pt slide board use for bed>wc tf. However pt able to perform EOB>wc tf with extra time/effort scooting/sliding from EOB>wc without use of slide board. 2P present throug hout for safety. SBA incidental CGA provided for safety at 1+1 assist level. Bed-Chair, Level of [place]: contact guard assist, verbal cues required, set up requir ed Bml-Lqbnb-Cop, Assistive Device: wheelchair Impairments: impaired balance, strength decreased, decreased flexibility, motor control imp aired OT Goal Review Date Most Recent Value STG Review Date 02/24/20 at 02/17/2020 1824 Eating/Self Feeding Goal Most Recent Value STG Status new at 02/19/2020 1007 STG [place] Level modified independent at 02/19/2020 1007 UB Dressing Goal Most Recent Value STG Status met at 02/20/2020 1129 STG [place] Level set up required at 02/19/2020 1007 LB Dressing Goal Most Recent Value STG Status met [for pants] at 02/20/2020 1129 STG [place] Level minimum assist (75% patient effort) at 02/19/2020 1007 Toilet Transfer Goal Most Recent Value STG Status continued at 02/19/2020 1007 STG [place] Level minimum assist (75% patient effort) at 02/17/2020 1824 OT Time Calculation OT Individual Start Time: 1748 OT Individual Stop Time: 1823 OT Individual Total Time: 35 OT Additional Treatment Time: Co-treatment OT Co-treatment Start Time: 1101 OT Co-treatment Stop Time: 1128 OT Co-treatment Total Time: 27 OT Total Treatment Time: 27 Timed [place] Code Minutes: 15 Electronically signed by: Lindsay Garcia OT, 02/20/2020 6:06 PM lan of Care - Dl, Ramakrishna Reynoso RN - 02/20/2020 11:07 AM PDTThis CM spoke with patient Alin Marquez regarding disc harge. MD plan is to D/C 1-2 days. Also, a phone call to mother to update her on the plan for discharge. Mother did ask if he could get a COVID test prior to dicharge. Question sent to MD per Sherrell silveira pager. Electronically signed by: Kay Lizama RN 02/20/2020 1:29 PM Discharge planning: This CM received a phone call from patient, Alin's mom (Samantha Ramos) this morning. Ana Luisa guerra states that she is patient's caregiver in their home and his medical decision maker. Samantha informs me that Alin called her this morning very upset that all of the staff at [facility] has been discussing with him discharging to an LTAC. Alin is very addiment that he will not discharge anywhere but to his home and is tired of everyone talking to him about everyt hussain but discharging to his home. Samantha states she has been a [employer] for most of her life and feels very comfortable in caring for her son, Alin Marquez. Samantha adds that they have a hospital bed, sarahy,and wheelchair at home. Samantha states that Alin will have a lift recliner delivered on Tuesday. Samantha goes on to say that they have all the equipment that they need, however, she feels t hat an air mattress would be great help in Alin being able to turn himself and will help to eliminate any skin breakdowns at home. Samantha has been trying to get Alin an air mattress, but states he hasn't qualified for one yet. Samantha also informs me that Alin has been a current patient with [facility] coming into their home, [facility] resumed at discharge. The RN that hooper s been involved with Alin's care is Sheron. Samantha adds that she is very comfortable with Dominick hernandez and if anyone from the hospital would like to talk with her, Samantha feels that it woul d be beneficial. Samantha also talked about the fact that Alin just started on an anti-depressant and has not had long enough for it to really be in effect. Samantha hopes that Vicente will be discharged a months worth of anti-depressant until she can have the PCP or biology faculty member refill the anti -depressant. Mom states that the patient will need a ride home. Alni uses [facility] [phone] has assisted with patient transportation in the past. DISCHARGE PLAN: Home with mom, (Samantha) and [facility] when stable. Alin will need to have [facility] [phone] transportatio n arranged ahead of time. P M PDTPlan of Guilherme - Merna Nelson RN - 02/19/2020 6:48 PM PDTPatient alert and oriented x4. PT got patient up for lunch with 2 person assist. Needed to use sarahy lift to get him back into bed. Went down for MRI of his left foot. Complained of joint pain and was given PRN Hydrocodone per patient request and it was effective. Poor meal intake. Encourage by janusz hare to eat. No hypoglycemia. 6 :50 PM PDTPlan of Care - Carmina Bourgeois, OT - 02/19/2020 4:16 PM PDTFormatting of this n ote might be different from the original. Patient Identification Brooks Marquez is a 29 y.o. male. : 1990 Admit Date: 02/15/2020 Attending Provider: Savage Saavedra DO WOUND CARE CONSULT Subjective: Reason for Consultation: management recommendations. History of present illness: This is a 29 y.o. male with a history of Type I DM s/p R BKA, gastroparesis, CKD III, chronic L foot ulcer who presented from an outside hospital due to a bnormal labs. He had routine home health labs drawn on 02/14 and his PCP recommended he prese nt to the ED. His hemoglobin was 7.3 (8-8.5) and creatinine 4.2 (~2.6) around 2.At the outs [facility] the labs were consistently abnormal and he was transferred here for higher [facility] l of care. Patient reports he has been feeling progressively weak over the past few months Objective: Sacral wound - 0.8 cm x 0.7 cm x unknown. Pt reports that he has had the wound for " a cou ple weeks" . Photos taken today Left lateral foot wound is chronic. Pictures taken 02/16. Wound appears to be making progre ss from December admission. Wound is approx 6 cm x 3.5 cm x 0.3 cm. Wound bed is pink, wound ed ges are not rolled, as they were in December. Small toe MT head - This wound is new from December. This is a pressure ulcer based on the MT head. Wound is approx 2.3 cm x 1.3 cm x unknown due to eschar filled wound. Assessment: Unstageable wound on the sacrum due to being filled with white slough - POA 2. Diabetic ulcer- POA 3. Unstageable PU over 5th MT head Plan: Wound care: Sacral wound- Cover with hydrocolloid (Duoderm). This will encourage autolytic debridement in order to see the depth of the wound. Change every 2-3 days and as needed. Left lateral foot- Cleanse with wound cleanser, skin barrier to alexis wound, cover wound wit h aquacel (cut to fit wound), cover with foam dressing. Change every 2-3 days, and as needed . Small toe MT head - Cleanse, cover with hydrocolloid (Duoderm) to promote autolytic debride ment, change every 2-3 days, and as needed lan of Care - Hasmukh Cruz, PT - 02/19/2020 10:22 AM PDTFormatting of this note might be different fro m the original. Physical Therapy Plan of Care Initial Evaluation, Treatment Note Summary: Brooks presents to physical therapy with impaired functional mobility, transfers and independence due to complicated acute kidney injury with chronic anemia, type 1 diabete s with slowly healing L foot ulcer. Per admission notes: 29 y.o. male with a history of Type I DM s/p R BKA, gastroparesis, CK D III, chronic L foot ulcer who presented from an outside hospital due to abnormal labs. He had routine home health labs drawn on 02/14 and his PCP recommended he present to the ED. His hemoglobin was 7.3 (8-8.5) and creatinine 4.2 (~2.6) around 2.At the outside hospital the labs were consistently abnormal and he was transferred here for higher level of care. Damion rachele reports he has been feeling progressively weak over the past few months. He has been unab le to stand since September and is having added difficulty transferring in and out [facility] without assistance. He reports decreased appetite and feeling weaker especially in t he last 5 days. He has continued chronic diarrhea and exacerbation of chronic pain. admitte d for acute kidney injury on chronic CKD with chronic anemia and left foot wound. Overall the patient is requiring 2 person assist for Sarahy lift transfers for basic mobilit y to the bedside chair or wheelchair. PT and OT performed cotreatment evaluation to maximiz e patient functional mobility, outcomes, and to maximize safety for staff. A stand pivot tr ansfer was performed after speaking with the doctor and obtaining clarification nonweightbea ring status to allow for the patient to weight-bear on his left heel with a POTUS boot in pl silvia for transfers. PT and OT facilitated a stand pivot/stand squat transfer with PT doing m karenty of the work as the patient was quickly fatigued and is too weak to give meaningful a ssistance. This PT spent additional time talking with the patient and calling his mother re garding his current wheelchair and following up on patient's report that he says he is getti ng a new one thru [facility] in [place]. According to the patient's mother, he was i ssued the current 16 inch wide standard hospital chair and it is too difficult for him to us e so at the vendor is working with [facility] to try to get him another one which is slightly wider and with a deeper seat depth. According to the patient's mother, because insurance had jim amor paid for one chair, they would not pay to replace it, even though the one he currently has is not medically appropriate. I raised concern to her that simply widening the chair or making it deeper will not make it appropriate for him to self propel as his current chair i s not adjustable, and does not have movable axles, nor is it an ultralight weight, or approp riate for someone with hand dexterity compromised. The elevating leg rest on the right is n ot an appropriate support for a below-knee amputation and it is missing the foot rest in josefa e he were to use a prosthesis. The left side does not appear to have an elevating leg rest that is functional. The cushion is not rated for his positioning needs and he cannot grasp the wheels because of the small size on the wheel ring combined with the axle not being adju sted/adjustable for optimal push stroke or hand positioning needs. Additionally he does not have the trunk support to self propel a standard weight manual wheelchair, while sitting up right at 90 degrees without a solid back support, even if it did fit him. I brought these c oncerns up to his mother and left a message for Ruma Slater, his manager case management at [facility] at . That number went to a message machine that gave me Padmini's cell phone chloe baker of . Messages were left on both machines. I returned to the room and refit the new POTUS boot for the patient and also issued him red foam silverware buildups per OT guidelines so that he could eat his meal after his imaging study scheduled today. Patient h anded off to nursing. Objective exam reveals impairments with anthropometric characteristics, arousal, attention, and cognition, cranial and peripheral nerve integrity, ergonomics and body mechanics, funct ional endurance/activity tolerance, gait, locomotion, and balance, integumentary integrity, joint integrity and mobility, motor function, muscle performance, neuromotor, posture, ROM, reflex integrity, sensory integration/regulation, social dynamics, ventilation and respirati on/gas exchange, HEP, wheelchair seating and fitment guidelines. RN cleared patient for participation in therapy. Patient was agreeable to therapy. Patient participated without adverse reaction. RN debriefed on therapy session and patient status. I t is encouraged that the patient be up in chair for all meals. Recommended mobility with nursing: Day Night bedside commode bedside commode Overhead Lift Overhead Lift with 2 people and verbal cues and tactile cues with 2 people and verbal cues and tactile c ues Barriers to discharge and functional limitations include decreased insight into safety and deficits, decreased functional activity tolerance, decreased bed mobility, decreased functio nal transfers, decreased functional gait distance, decreased gait velocity, not yet able to mobilize at level safe for home discharge, and medical status. Brooks will benefit from therapeutic intervention to address impairments and increase safet y and independence with activities necessary for safe discharge. Refer below for specific d etails regarding functional levels. Precaution Comment: L foot wound, Wt bearing on heel via podis boot to help maintain skin i ntegrity/wound closure. Left Lower Extremity Weight-Bearing: partial weight-bearing Previous Level of Function: Transferring: assistive person Ambulation: assistive person Toileting: assistive person Bathing: assistive person Dressing: assistive person Eating: independent Communication: understands/communicates without difficulty Swallowin-->swallows foods/liquids without difficulty Equipment Currently Used at Home: none Prior Functional Level Comment: Reports mostly Sarahy lift transfers now since wound on L fo ot prohibits him from standing on L foot. Has utilized sliding board in the past but becaus e of sacral wounds this is also contraindicated. Reports tries to do a squat pivot on occas ion. Reports mother assists him onto the shower seat inside of the tub. Potential available assistance at discharge: Role Relationships Comment: Mother acts as primary caregiver. Pt reports having "all kinds of Home Health." Living Environment/Accessibility: Lives With: mother Living Arrangements: apartment(3-bedroom) Home Accessibility: ramps present at home, tub/shower is not walk in Number of Stairs to Enter Home: 0 Number of Stairs Within Home: 0 Financial Concerns: none Transportation Available: car, family or friend will provide Living Environment Comment: Has Sarahy lift, hospital bed, shower seat, ,w/c w/ stump suppor t; getting a lift chair; powered shower seat that will lower him into tub if wants; has FWW Patient/Family s Goals: get stronger and return to PLOF Rehabilitation potential: fair, will monitor progress closely Physical Therapy Discharge Recommendations are: Recommended discharge disposition: (TBD) Post discharge physical therapy recommendation: family involved/supportive, will benefit f rom structured setting, outpatient therapy, ongoing low intensity therapy Equipment Recommendations: wheelchair, wheelchair components (comment), wheelchair cushion , transfer board Planned Interventions: balance training, bed mobility training, gait training, home exerci se program, lumbar stabilization, joint mobilization, manual therapy techniques, prosthetic fitting/training, postural re-education, patient/family education, orthotic fitting/training , neuromuscular re-education, motor coordination training, ROM (Range of Motion), strengthen ing, stretching, romanian ball techniques, transfer training, wheelchair management/propulsion training Recommended Frequency: (5-7x/wk) Patient Status/Goals: Reflects last filed data and may be from multiple contributors. Gait Unable to initiate functional steps due to not having right below-knee prosthesis present a nd does not have upper body strength to support hopping with a walker at this time. Transfers Patient perform stand pivot transfer on left lower extremity with heel weightbearing with m aximal assistance from PT. Patient contributed between 10 and 15% to the initial sit to sta nd and then was unable to participate through the duration of the pivot turn and sit in the bedside chair. Bed-Chair, Level of [place]: maximal assist (25% patient effort) Chair-Bed, Level of [place]: maximal assist (25% patient effort) [id number]-[id number], Assistive Device: none Bed Mobility pt moves very slowly, significant effort to transition to upright, even using bed features he is barely able to maintain upright sitting with support from upper limbs Assistive Device: bed rails, HOB elevated Supine to Sit, Level of [place]: moderate assist (50% patient effort) Safety Issues: decreased use of legs for bridging/pushing, impaired trunk control for bed m obility, decreased use of arms for pushing/pulling Impairments: strength decreased, impaired balance, ROM decreased, motor control impaired, p ostural control impaired Wheelchair Mobility NT this session - pt describes having to have brother or mother push him in current chair because of fit and configuration - see PT note above Balance Poor. Seated balnce requires 1 upper limb support, standing balance is total A. Functional Endurance Poor, patient quickly fatigued with basic bed mobility ROM L LE ROM: L ankle limited approx 25% in all planes, wounds covered on lateral/plantar surfa rigoberto of foot. podis boot applied. knee and hip grossly WFL R LE ROM: grossly WFL for R BKA Strength L LE Strength: grossly 2/5, pt had to pull on his leg with arms to move to EOB` R LE Strength: grossly 2/5 overall R BKA PT Goal Review Date Most Recent Value STG Review Date 02/26/20 at 02/19/2020 0933 Roll Left/Right Goal Most Recent Value STG Status new at 02/19/2020 0933 STG [place] Level modified independent at 02/19/2020 0933 STG Assistive Device bed rails, HOB elevated at 02/19/2020 0933 [id number] Goal Most Recent Value STG Status new at 02/19/2020 0933 STG [place] Level modified independent at 02/19/2020 0933 STG Assistive Device HOB elevated, bed rails at 02/19/2020 0933 [id number] Goal Most Recent Value STG Status new at 02/19/2020 0933 STG [place] Level modified independent at 02/19/2020 0933 STG Assistive Device 2 wheeled walker (FWW), sliding board at 02/19/2020 0933 [id number] Goal Most Recent Value STG Status new at 02/19/2020 0933 STG [place] Level modified independent at 02/19/2020 0933 STG Assistive Device 2 wheeled walker (FWW), wheelchair, prosthesis at 02/19/2020 0933 Wheelchair Goal Most Recent Value STG Status new at 02/19/2020 0933 STG Patient will demonstrate supervised while self-propelling manual wheelchair 50 feet on level and even surfaces at 02/19/2020 0933 PT Time Calculation Individual Start Time: 1003 Individual Stop Time: 1022 Individual Total Time: 19 PT Additional Treatment Time: Co-treatment PT Co-treatment Start Time: 932 PT Co-treatment Stop Time: 1003 PT Co-treatment Total Time: 30 PT Total Treatment Time: 49 Timed [place] Code Minutes: 19 Electronically signed by: Hasmukh Ryder, PT, 02/19/2020 4:20 PM lan of Care - Beth Camarillo OT - 02/19/2020 10:07 AM PDT Occupational Therapy Plan of Care Treatment Note Summary: Brooks has been participating in occupational therapy for treatment of Impaired BADLs, impaired basic functional mobility, impaired functional activity tolerance following admit w/ acute on chronic renal failure; anemia; hypokalemia; DM foot ulcer L foot . Emphas is of session included UE function; reviewed current inventory of DME, PLOF; reviewed benefi ts of use of built-up handles for utensils. Patient demonstrates progress towards function al goals as evidenced by participated w/ OT and in a co-treat w/ PT; mobilized self w/ minim al assistance to EOB; "feels good to sit up." Pt is grossly deconditioned, has L foot DM wou nd requiring intervention and limiting his mobility. He may benefit from further rehab inte rventions @ higher level than Home Health can provide. Also has DME needs, specifically w/c needs. Added addt'l ADL goals. RN cleared patient for participation in therapy. Patient was agreeable to therapy. Patient participated without adverse reaction. RN debriefed on therapy session and patient status. I t is encouraged that the patient be up in chair for all meals. Recommended toileting with nursing: Day Night bedpan bedpan No Assistive Device No Assistive Device maximum assistance maximum assistance Remaining barriers to discharge and functional limitations include decreased insight into s afety and deficits, decreased functional activity tolerance, decreased bed mobility, decreas ed functional transfers, decreased ability to perform ADLs, unsafe discharge disposition, an d medical status. Brooks will benefit from continued therapeutic intervention to address ongoing impairments and increase safety and independence with activities necessary for safe discharge. Refer be low for specific details regarding functional levels. Occupational Therapy Discharge Recommendations are: Recommended discharge disposition: (TBD depending upon progress) Post discharge occupational therapy recommendation: home health Equipment Recommendations: (Has manual w/c w/ elevating leg rest RUE; powered bath seat th at will lower him into tub; FWW; commode; hospital bed; lift chair coming; some kind of new manual w/c. ) Planned Interventions:ADL retraining, balance training, bed mobility training, patient/fami ly education, strengthening, transfer training, discharge planning Recommended Frequency: 3 times/wk, 5 times/wk Patient Status/Goals: Reflects last filed data and may be from multiple contributors. ADLs Further ADLs @ future visits. Co-visit w/ PT, completed UE assessment. Discussed his diff iculty holding utensils well w/ eating. Will provide built-up foam for utensils. Functional Endurance LImited. Fatigues easily. Cognitive More awake, alert today. Participating w/ OT and PT. Following direction. Bed Mobility Pt mobilizes slowly, w/ effort to transition upper trunk to urpight @ EOB. ABle to hold ba uma seated EOB. Intermittent use of UEs for support, no LOB. Assistive Device: bed rails Supine to Sit, Level of [place]: contact guard assist, verbal cues required Safety Issues: decreased use of legs for bridging/pushing, impaired trunk control for bed m obility, decreased use of arms for pushing/pulling Impairments: strength decreased, impaired balance, ROM decreased, motor control impaired, p ostural control impaired Transfers Co-evaluation w/ PT d/t extensive deficits, RLE BKA, wound on L foot. See PT evaluation fo r further info on status of transfers. ROM Mm wasting R hand, has tendodesis type of mobility. Reduced air route traffic controller bilaterally but R>L. Pt reports an incident that he fell asleep w/ his R arm over the armrest of his chair, when he woke it had impaired strength and sensation. L UE ROM: WFL R UE ROM: WFL in shoulder, elbow, wrist, fingers 2-5. Reduced thumb abduction. Strength Grossly deconditioned throughout all extremities, trunk, LLE, BUEs. L UE Strength: Grossly 3/5 R UE Strength: Grossly 3/5. R hand grossly 3-/5. OT Goal Review Date Most Recent Value STG Review Date 02/24/20 at 02/17/2020 1824 Eating/Self Feeding Goal Most Recent Value STG Status new at 02/19/2020 1007 STG [place] Level modified independent at 02/19/2020 1007 UB Dressing Goal Most Recent Value STG Status new at 02/19/2020 1007 STG [place] Level set up required at 02/19/2020 1007 LB Dressing Goal Most Recent Value STG [place] Level minimum assist (75% patient effort) at 02/19/2020 1007 Toilet Transfer Goal Most Recent Value STG Status continued at 02/19/2020 1007 STG [place] Level minimum assist (75% patient effort) at 02/17/2020 182 OT Time Calculation OT Individual Start Time: 1748 OT Individual Stop Time: 1823 OT Individual Total Time: 35 OT Additional Treatment Time: Co-treatment OT Co-treatment Start Time: 923 OT Co-treatment Stop Time: 1006 OT Co-treatment Total Time: 43 OT Total Treatment Time: 43 Timed [place] Code Minutes: 23 Electronically signed by: Beth Camarillo, OT, 02/19/2020 3:43 PM lan of Care - Cheng son, BradleyANNETTE Amezquita - 02/19/2020 5:52 AM PDTKeith has remained free from falls and injury. He has had complaints of pain, [place] given x1. His vitals signs have been stable, his diastoli c has been high but doctor has been aware. [facility] BG has been higher, still has D10 running throughout the night. Electronically sign ed by Bradley Hancock RN at 02/19/2020 6:19 AM PDTPlan of Hedy Naqvi RN - 6:17 PM PDTPt's H & H improved to 9.3 & 29.0 post transfusion. Continues to report he feels "tired". BP remains elevated, started on PO carvedilol BID per order. 550 ml urine this shift. BG low twice this morning, pt has refused all meals today. Started on D10 IV @50 ml/hr. Dressing to left foot CDI. Foam dressing to bottom CDI. Using bedpan. One small BM t luther. Lungs CTA. O2 sats adequate on RA. C/o pain, managed w 1 norco tab prn. No falls/injur y. lan of Hedy Hernandez RN - 02/18/2020 12:26 PM PDT2 units PRBC's transfused. No s/sx adverse effects. Pt reports he feels tired. C/o hypoglycemia this morning, BG 34. PO given, 12.5 g IV d50 gi haris. BG improved to 118. BP remains elevated, otherwise VSS. lan of Hasmukh Pineda PT - 02/18/2020 11:30 AM PDTTherapy Plan of Care Missed Visit Note Patient Information Patient Name: Brooks Marquez Date of : 1990 Age: 29 y.o. The patient was unable to be seen for today's scheduled visit due to patient's HgB was 5.7 at AM PT appt time, patient was receiving blood in am and was scheduled to have MRI. Spoke w [facility] senior sourcing manager and recommended PT/OT co-tx tomorrow for pt and staff safety and to maximize f unctional mobility potential once medically stable for participation with therapies. Plan: Rescheduled for PT/OT co-tx. Late entry Electronically signed by: Hasmukh Ryder PT, 02/18/2020 11:28 AM ignificant Even t - Sorin Moreira MD - 02/18/2020 6:19 AM PDTAcute worsening of chronic anemia hgb 5. 7 give one unit of blood repeat hhElectronically signed by Sorin Moreira MD at 020 6:20 AM PDTPlan of Beth Little OT - 02/17/2020 6:24 PM PDT Occupational Therapy Plan of Care Initial Evaluation, Treatment Note Summary: Brokos presents to occupational therapy with Impaired BADLs, impaired basic func tional mobility, impaired functional activity tolerance following admit w/ acute on chronic renal failure; anemia; hypokalemia; DM foot ulcer L foot . Objective exam reveals impairmen ts with anthropometric characteristics, aerobic capacity/endurance, ergonomics and body mech anics, functional endurance/activity tolerance, gait, locomotion, and balance, social dynami cs, integumentary integrity, muscle performance; wound care under guidance of Wound Care Spe cialist. Further establishment of goals when evaluation is completed in conjunction w/ PT. Note that OT order was to begin 02/17, however wound care was provided today in consultation w/ Box Car Checker. Following pt needed assistance after use of bedpan. Bed mobilit y and hygiene were completed . RN cleared patient for participation in therapy. Patient was agreeable to therapy. Patient participated without adverse reaction. RN debriefed on therapy session and patient status. Recommended toileting with nursing: Day Night bedpan bedpan No Assistive Device No Assistive Device with 2 people with 2 people Barriers to discharge and functional limitations include decreased insight into safety and deficits, decreased functional activity tolerance, decreased bed mobility, decreased functio nal transfers, decreased ability to perform ADLs, not yet able to mobilize at level safe for home discharge, and medical status. Brooks will benefit from therapeutic intervention to address impairments and increase safet y and independence with activities necessary for safe discharge. Refer below for specific d etails regarding functional levels. Precaution Comment: L foot wound, anticipate NWB. Skin integrity. Previous Level of Function: Transferring: assistive person Ambulation: assistive person Toileting: assistive person Bathing: assistive person Dressing: assistive person Eating: independent Communication: understands/communicates without difficulty Swallowin-->swallows foods/liquids without difficulty Equipment Currently Used at Home: none Prior Functional Level Comment: Reports mostly Sarahy lift transfers now since wound on L fo ot prohibits him from standing on L foot. Has utilized sliding board in the past but becaus e of sacral wounds this is also contraindicated. Reports tries to do a squat pivot on occas ion. Reports mother assists him onto the shower seat inside of the tub. Potential available assistance at discharge: Role Relationships Comment: Mother acts as primary caregiver. Pt reports having "all kinds of Home Health." Living Environment/Accessibility: Lives With: mother Living Arrangements: apartment Home Accessibility: ramps present at home, tub/shower is not walk in Number of Stairs to Enter Home: 0 Number of Stairs Within Home: 0 Financial Concerns: none Transportation Available: car, family or friend will provide Living Environment Comment: Has Sarahy lift, hospital bed, shower seat, ,w/c w/ stump suppor t. Patient/Family s Goals: Wants to go home soon. "You're keeping me here?" Rehabilitation potential: fair, will monitor progress closely Occupational Therapy Discharge Recommendations are: Recommended discharge disposition: (TBD depending upon progress) Post discharge occupational therapy recommendation: home health Equipment Recommendations: (TBD- has hospital bed, Sarahy lift, manual w/c w/ stump support , shower seat. ) Planned Interventions:ADL retraining, balance training, bed mobility training, patient/fami ly education, strengthening, transfer training, discharge planning Recommended Frequency: 3 times/wk, 5 times/wk Patient Status/Goals: Reflects last filed data and may be from multiple contributors. Wound Care: Photos taken and uploaded to Media tab. Lateral aspect and surrounding area cleansed w/ soap & water to remove lanolin applied prev iously, to facilitate application of wound dressings. Applied skin prep on alexis-wounds. L foot, 5th MT head applied Duoderm trimmed to size. L foot- placed Aquacell trimmed to size in wound bed, applied Saucier Foam. Wrapped foot lightly w/ Kerlex to secure dressings in place. ADLs Deferred addt'l ADLs for future visits. Focus this session was toileting, bed mobility, wo und mgmt. Pt on bedbpan- limited OOB abilities. Able to roll L/R w/ set-up and SBA for safety w/ pos itioning. Full assist for the hygiene. Toileting, Level of [place]: 2 person assist required, dependent ( less than 25% patie nt effort) Assistive Device: (bedpan) Toileting Assess/Train, Position: (supine) Toileting Impairments: strength decreased, impaired balance, impaired functional endurance/ activity tolerance, ROM decreased Functional Endurance Tolerated activities requested w/o obvious fatigue but is minimally groggy intermittently. Cognitive Oriented to self, situation. Little groggy but answering questions appropriately when need ed. Bed Mobility Rolling L/R for bedpan mgmt, hygiene following loose stool. Further bed mobility in co-ass ess w/ PT @ next visit as appropriate. Assistive Device: bed rails Supine to Sit, Level of [place]: stand by assist, verbal cues required Safety Issues: decreased use of legs for bridging/pushing, impaired trunk control for bed m obility, decreased use of arms for pushing/pulling Impairments: strength decreased, impaired balance, ROM decreased Transfers Deferred this visit. Will co-assess transfers w/ PT @ next visit. ROM Further UE assessment is indicated. Pt reports BUE weakness and impairments. From supine position he AA his UEs into ~100* shoulder flexion but had reduced control on descent. Strength Further assessment indicated. OT Goal Review Date Most Recent Value STG Review Date 02/24/20 at 02/17/20201823 Toilet Transfer Goal Most Recent Value STG Status new at 02/17/20201823 STG [place] Level minimum assist (75% patient effort) at 02/17/20201823 OT Time Calculation OT Individual Start Time: 1748 OT Individual Stop Time: 1823 OT Individual Total Time: 35 OT Total Treatment Time: 35 Timed [place] Code Minutes: 20 Electronically signed by: Beth Camarillo OT, 02/17/2020 6:48 PM lan of Care - [facility] elizabeth, Hedy Tan RN - 02/17/2020 5:45 PM PDTPt is A & O x4. Able to make needs known. Continu es to be on IV anbx. Wound to left lateral foot is 2.3 cm x 1.5 cm, approximately 1 cm deep. No tunneling noted. Wound dressing changed today. OT in to evaluate wound, dressing changed per Beth PITTMAN (see note). Pt has severely dry, flaky skin on all extremities. Moisture an d lanolin cream applied. Pt also has pressure sore to coccyx, skin barrier film and foam shawn ssing applied. Excoriation-like redness to bottom, calazime cream applied. Pt using bedpan f requently today. Many large liquid, green-brown stools today. Imodium per Dr. Murrell. Main tained on contact enteric precautions. Pt HR tachy, rhythm regular to auscultation. BP eleva alissa this evening, Dr. 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 Pt has new midline, changed to 'Unit Collect'. BMP sent to lab. Pt calls for assistance. No falls/injury. Electronically s igned by Hedy Corea RN at 02/17/2020 7:40 PM PDTPlan of Care - Beth Camarillo OT - 02/17/2020 5:13 PM PDT Occupational Therapy No n-Bill Visit MD consulted w/ OT regarding L foot wound. Box Car Checker not available in-house th is day. Photos were taken and uploaded into Media tab so they may be reviewed remotely. Also initiated interview portion of OT evaluation to begin tomorrow. Electronically signed by: Beth Camarillo OT 02/17/2020 5:16 PM lan of [facility] - Sue Montaño RN - 02/17/2020 4:10 AM PDTKeith is A/O x4 nd free of falls during shift. C/ O left leg and hand pain. Tx with [place] per order x1. D5 w/sodium bicarb running @ 75ml/hr a nd NS running @ 75ml/hr. Ferric gluconate given per order. Lantus and Humalog held due to BG 80. Open wound on left outer foot cleansed with wound cleanser and new foam dressing placed . Scant amount of yellow drainage noted. He has been sleeping through the entire shift but a wake for meds/cares. Enteric precautions maintained. Alin calls appropriately and will cont inue to monitor. lan of Care - Jerome Prado RN - 02/16/2020 6:07 PM PDTPt sleepy all shift, awakened for m edications, refusing lunch and dinner. Large loose stool (sent sample to lab) along with anibal udy yellow urine. No falls or injuries, C/o general pain with [place] given.Electronically si gned by Jerome Prado RN at 02/16/2020 6:09 PM PDTPlan of [facility] - Jennifer Nolasco MSW - 02/16/2020 12:51 PM PDTIn to see patient to discuss discharge planning. Patient states he is tired, didn't get much sleep. Asked about his discharge plan, his plan is to return home. Asks this handbook writer to call his mom. Phone call to his mom, she states that she is patient's caregiver in their home. Patient hooper s a hospital bed, sarahy, wheelchair at home. Patient's mom states that they have all the equ ipment that they need, would like to have an air mattress at home, but states he hasn't qual ified for one yet. Patient will have a lift recliner delivered on Tuesday. Patient has been seeing [facility] in their home, mom would like to have it continued. Mom states that the patient will need a ride home, states [facility] [place] [phone] has assisted with patient transportation in the past. Plan: Home with mom and home health when stable. Electronically signed by: LYDIA Olivares 02/16/2020 1:03 PM lan of Care - Cheng calle ANNETTE Huerta - 02/16/2020 4:58 AM PDTKeith has remained free from falls and injury. He has gotten one unit of blood tonight. Also gave insulin and dextrose for his high potassium . He has had complaints of pain, relieved with one norco. He has had adequate urine output, vital signs have stable. documented in this encounter Plan of Treatment +--------+---------+ + + + | Date | Type | Specialty | Care Team | Description | +--------+---------+ + + + | 05/07/ | Office | Nephrology | Winston Whitman MD | | 2019 | Visit | | [address] [place] | | | | | | [address] [place], [place] | | | | | | [address] | | | | | | | | +--------+---------+ + + + + + +--------+ + + | Name | Type | Priori | Associated Diagnoses | Date/Time | | | | ty | | | + + +--------+ + + | Red Blood Cells | Blood - | Routin | | 02/16/2020 7:12 AM | | ([facility]) - Transfuse | Nursing | e | | PDT | | | Transfusion | | | | + + +--------+ + + | Red Blood Cells | Blood - | Routin | | 02/16/2020 7:12 AM | | ([facility]) - Transfuse | Nursing | e | | PDT | | | Transfusion | | | | + + +--------+ + + + +------+--------+ + + | Name | Type | Priori | Associated Diagnoses | Order Schedule | | | | ty | | | + +------+--------+ + + | Basic Metabolic | Lab | Routin | Hyperkalemia CKD | Expected: | | Panel | | e | (chronic kidney | 02/28/2020, Expires: | | | | | disease), stage III | 02/20/2021 | | | | | (HCC) | | + +------+--------+ + + | CBC w/ Auto | Lab | Routin | Anemia of chronic | Expected: | | Differential | | e | renal failure, stage | 02/28/2020, Expires: | | | | | 3 (moderate) (HCC) | 02/20/2021 | + +------+--------+ + + + + +--------+ + + | Name | Type | Priori | Associated Diagnoses | Order Schedule | | | | ty | | | + + +--------+ + + | Referral to Home | Outpatient | Routin | Diabetic | Ordered: 02/21/2020 | | Health - OUTPATIENT | Referral | e | gastroparesis (HCC) | | | | | | Fissure in skin of | | | | | | foot | | + + +--------+ + + documented as of this encounter Procedures + +--------+ + + + | Procedure Name | Priori | Date/Time | Associated Diagnosis | Comments | | | ty | | | | + +--------+ + + + | POC GLUCOSE | Routin | 02/21/2020 | | Results for this | | | e | 12:48 PM | | procedure are in the | | | | PDT | | results section. | + +--------+ + + + | POC GLUCOSE | Routin | 02/21/2020 | | Results for this | | | e | 8:41 AM | | procedure are in the | | | | PDT | | results section. | + +--------+ + + + | POC GLUCOSE | Routin | 02/21/2020 | | Results for this | | | e | 6:33 AM | | procedure are in the | | | | PDT | | results section. | + +--------+ + + + | CBC WITH | Routin | 02/21/2020 | | Results for this | | DIFFERENTIAL | e | 5:47 AM | | procedure are in the | | | | PDT | | results section. | + +--------+ + + + | C-REACTIVE PROTEIN | Routin | 02/21/2020 | | Results for this | | | e | 5:47 AM | | procedure are in the | | | | PDT | | results section. | + +--------+ + + + | RENAL FUNCTION PANEL | Routin | 02/21/2020 | | Results for this | | | e | 5:47 AM | | procedure are in the | | | | PDT | | results section. | + +--------+ + + + | POC GLUCOSE | Routin | 02/20/2020 | | Results for this | | | e | 9:50 PM | | procedure are in the | | | | PDT | | results section. | + +--------+ + + + | POC GLUCOSE | Routin | 02/20/2020 | | Results for this | | | e | 5:30 PM | | procedure are in the | | | | PDT | | results section. | + +--------+ + + + | POC GLUCOSE | Routin | 02/20/2020 | | Results for this | | | e | 12:39 PM | | procedure are in the | | | | PDT | | results section. | + +--------+ + + + | POC GLUCOSE | Routin | 02/20/2020 | | Results for this | | | e | 7:25 AM | | procedure are in the | | | | PDT | | results section. | + +--------+ + + + | HEPATITIS A, B, C | Routin | 02/20/2020 | | Results for this | | PANEL, REFLEX | e | 3:55 AM | | procedure are in the | | | | PDT | | results section. | + +--------+ + + + | CBC WITH | Routin | 02/20/2020 | | Results for this | | DIFFERENTIAL | e | 3:55 AM | | procedure are in the | | | | PDT | | results section. | + +--------+ + + + | RENAL FUNCTION PANEL | Routin | 02/20/2020 | | Results for this | | | e | 3:55 AM | | procedure are in the | | | | PDT | | results section. | + +--------+ + + + | POC GLUCOSE | Routin | 02/20/2020 | | Results for this | | | e | 3:40 AM | | procedure are in the | | | | PDT | | results section. | + +--------+ + + + | POC GLUCOSE | Routin | 02/20/2020 | | Results for this | | | e | 2:25 AM | | procedure are in the | | | | PDT | | results section. | + +--------+ + + + | POC GLUCOSE | Routin | 02/19/2020 | | Results for this | | | e | 11:59 PM | | procedure are in the | | | | PDT | | results section. | + +--------+ + + + | POC GLUCOSE | Routin | 02/19/2020 | | Results for this | | | e | 10:16 PM | | procedure are in the | | | | PDT | | results section. | + +--------+ + + + | POC GLUCOSE | Routin | 02/19/2020 | | Results for this | | | e | 9:33 PM | | procedure are in the | | | | PDT | | results section. | + +--------+ + + + | POC GLUCOSE | Routin | 02/19/2020 | | Results for this | | | e | 5:47 PM | | procedure are in the | | | | PDT | | results section. | + +--------+ + + + | MRI FOOT LEFT WO | Routin | 02/19/2020 | | Results for this | | CONTRAST | e | 1:48 PM | | procedure are in the | | | | PDT | | results section. | + +--------+ + + + | POC GLUCOSE | Routin | 02/19/2020 | | Results for this | | | e | 12:23 PM | | procedure are in the | | | | PDT | | results section. | + +--------+ + + + | RESPIRATORY THERAPY | Routin | 02/19/2020 | | | | COMMUNICATION | e | 11:43 AM | | | | | | PDT | | | + +--------+ + + + | POC GLUCOSE | Routin | 02/19/2020 | | Results for this | | | e | 6:37 AM | | procedure are in the | | | | PDT | | results section. | + +--------+ + + + | XR CHEST AP PORTABLE | Routin | 02/19/2020 | | Results for this | | | e | 5:54 AM | | procedure are in the | | | | PDT | | results section. | + +--------+ + + + | CBC WITH | Routin | 02/19/2020 | | Results for this | | DIFFERENTIAL | e | 4:48 AM | | procedure are in the | | | | PDT | | results section. | + +--------+ + + + | B TYPE NATRIURETIC | Routin | 02/19/2020 | | Results for this | | PEPTIDE | e | 4:48 AM | | procedure are in the | | | | PDT | | results section. | + +--------+ + + + | RENAL FUNCTION PANEL | Routin | 02/19/2020 | | Results for this | | | e | 4:48 AM | | procedure are in the | | | | PDT | | results section. | + +--------+ + + + | POC GLUCOSE | Routin | 02/19/2020 | | Results for this | | | e | 1:00 AM | | procedure are in the | | | | PDT | | results section. | + +--------+ + + + | POC GLUCOSE | Routin | 02/18/2020 | | Results for this | | | e | 9:42 PM | | procedure are in the | | | | PDT | | results section. | + +--------+ + + + | POC GLUCOSE | Routin | 02/18/2020 | | Results for this | | | e | 5:15 PM | | procedure are in the | | | | PDT | | results section. | + +--------+ + + + | HEMOGLOBIN AND | Routin | 02/18/2020 | | Results for this | | HEMATOCRIT | e | 1:57 PM | | procedure are in the | | | | PDT | | results section. | + +--------+ + + + | TRANSFUSE 2 UNITS | Routin | 02/18/2020 | | | | RED BLOOD CELLS | e | 12:08 PM | | | | | | PDT | | | + +--------+ + + + | POC GLUCOSE | Routin | 02/18/2020 | | Results for this | | | e | 12:02 PM | | procedure are in the | | | | PDT | | results section. | + +--------+ + + + | POC GLUCOSE | Routin | 02/18/2020 | | Results for this | | | e | 10:49 AM | | procedure are in the | | | | PDT | | results section. | + +--------+ + + + | POC GLUCOSE | Routin | 02/18/2020 | | Results for this | | | e | 10:40 AM | | procedure are in the | | | | PDT | | results section. | + +--------+ + + + | POC GLUCOSE | Routin | 02/18/2020 | | Results for this | | | e | 10:26 AM | | procedure are in the | | | | PDT | | results section. | + +--------+ + + + | TRANSFUSE 1 UNIT RED | Routin | 02/18/2020 | | | | BLOOD CELLS | e | 9:51 AM | | | | | | PDT | | | + +--------+ + + + | PRODUCT: RBC | Routin | 02/18/2020 | | Results for this | | | e | 9:26 AM | | procedure are in the | | | | PDT | | results section. | + +--------+ + + + | PRODUCT: RBC | Routin | 02/18/2020 | | Results for this | | | e | 7:26 AM | | procedure are in the | | | | PDT | | results section. | + +--------+ + + + | POC GLUCOSE | Routin | 02/18/2020 | | Results for this | | | e | 7:08 AM | | procedure are in the | | | | PDT | | results section. | + +--------+ + + + | POC GLUCOSE | Routin | 02/18/2020 | | Results for this | | | e | 6:46 AM | | procedure are in the | | | | PDT | | results section. | + +--------+ + + + | SEDIMENTATION RATE | Routin | 02/18/2020 | | Results for this | | | e | 5:23 AM | | procedure are in the | | | | PDT | | results section. | + +--------+ + + + | PROTIME INR | Routin | 02/18/2020 | | Results for this | | | e | 5:23 AM | | procedure are in the | | | | PDT | | results section. | + +--------+ + + + | CBC WITH | Routin | 02/18/2020 | | Results for this | | DIFFERENTIAL | e | 5:23 AM | | procedure are in the | | | | PDT | | results section. | + +--------+ + + + | C-REACTIVE PROTEIN | Routin | 02/18/2020 | | Results for this | | | e | 5:23 AM | | procedure are in the | | | | PDT | | results section. | + +--------+ + + + | B TYPE NATRIURETIC | Routin | 02/18/2020 | | Results for this | | PEPTIDE | e | 5:23 AM | | procedure are in the | | | | PDT | | results section. | + +--------+ + + + | RENAL FUNCTION PANEL | Routin | 02/18/2020 | | Results for this | | | e | 5:23 AM | | procedure are in the | | | | PDT | | results section. | + +--------+ + + + | POC GLUCOSE | Routin | 02/17/2020 | | Results for this | | | e | 8:54 PM | | procedure are in the | | | | PDT | | results section. | + +--------+ + + + | BASIC METABOLIC | Timed | 02/17/2020 | | Results for this | | PANEL | | 6:55 PM | | procedure are in the | | | | PDT | | results section. | + +--------+ + + + | POC GLUCOSE | Routin | 02/17/2020 | | Results for this | | | e | 5:16 PM | | procedure are in the | | | | PDT | | results section. | + +--------+ + + + | POC GLUCOSE | Routin | 02/17/2020 | | Results for this | | | e | 11:45 AM | | procedure are in the | | | | PDT | | results section. | + +--------+ + + + | CULTURE, WOUND, | Routin | 02/17/2020 | | Results for this | | SMEAR | e | 11:05 AM | | procedure are in the | | | | PDT | | results section. | + +--------+ + + + | CULTURE, WOUND, | Routin | 02/17/2020 | | Results for this | | SMEAR | e | 11:05 AM | | procedure are in the | | | | PDT | | results section. | + +--------+ + + + | CULTURE, ANAEROBIC | Routin | 02/17/2020 | | Results for this | | | e | 11:05 AM | | procedure are in the | | | | PDT | | results section. | + +--------+ + + + | POC GLUCOSE | Routin | 02/17/2020 | | Results for this | | | e | 6:35 AM | | procedure are in the | | | | PDT | | results section. | + +--------+ + + + | C-REACTIVE PROTEIN | Add-On | 02/17/2020 | | Results for this | | | | 4:32 AM | | procedure are in the | | | | PDT | | results section. | + +--------+ + + + | B TYPE NATRIURETIC | Routin | 02/17/2020 | | Results for this | | PEPTIDE | e | 4:32 AM | | procedure are in the | | | | PDT | | results section. | + +--------+ + + + | RENAL FUNCTION PANEL | Routin | 02/17/2020 | | Results for this | | | e | 4:32 AM | | procedure are in the | | | | PDT | | results section. | + +--------+ + + + | CBC WITH | Routin | 02/17/2020 | | Results for this | | DIFFERENTIAL | e | 4:31 AM | | procedure are in the | | | | PDT | | results section. | + +--------+ + + + | POC GLUCOSE | Routin | 02/16/2020 | | Results for this | | | e | 8:26 PM | | procedure are in the | | | | PDT | | results section. | + +--------+ + + + | HEMOGLOBIN AND | Routin | 02/16/2020 | | Results for this | | HEMATOCRIT | e | 5:40 PM | | procedure are in the | | | | PDT | | results section. | + +--------+ + + + | B TYPE NATRIURETIC | Routin | 02/16/2020 | | Results for this | | PEPTIDE | e | 5:40 PM | | procedure are in the | | | | PDT | | results section. | + +--------+ + + + | BASIC METABOLIC | Routin | 02/16/2020 | | Results for this | | PANEL | e | 5:40 PM | | procedure are in the | | | | PDT | | results section. | + +--------+ + + + | CLOSTRIDIOIDES | Routin | 02/16/2020 | | Results for this | | DIFFICILE NAAT | e | 2:00 PM | | procedure are in the | | REFLEX | | PDT | | results section. | + +--------+ + + + | CLOSTRIDIOIDES | Routin | 02/16/2020 | | Results for this | | DIFFICILE TOX AG EIA | e | 2:00 PM | | procedure are in the | | (REFLEX) | | PDT | | results section. | + +--------+ + + + | CLOSTRIDIOIDES | Routin | 02/16/2020 | | Results for this | | DIFFICILE NAAT | e | 2:00 PM | | procedure are in the | | REFLEX TO TOX AG | | PDT | | results section. | + +--------+ + + + | POC GLUCOSE | Routin | 02/16/2020 | | Results for this | | | e | 12:31 PM | | procedure are in the | | | | PDT | | results section. | + +--------+ + + + | US RENAL COMPLETE | Routin | 02/16/2020 | | Results for this | | | e | 12:10 PM | | procedure are in the | | | | PDT | | results section. | + +--------+ + + + | SODIUM, URINE, | Routin | 02/16/2020 | | Results for this | | RANDOM | e | 10:58 AM | | procedure are in the | | | | PDT | | results section. | + +--------+ + + + | OSMOLALITY, URINE | Routin | 02/16/2020 | | Results for this | | | e | 10:58 AM | | procedure are in the | | | | PDT | | results section. | + +--------+ + + + | CREATININE, URINE, | Routin | 02/16/2020 | | Results for this | | RANDOM | e | 10:58 AM | | procedure are in the | | | | PDT | | results section. | + +--------+ + + + | XR CHEST AP PORTABLE | Routin | 02/16/2020 | | Results for this | | | e | 9:06 AM | | procedure are in the | | | | PDT | | results section. | + +--------+ + + + | BETA | Routin | 02/16/2020 | | Results for this | | HYDROXYBUTYRATE, | e | 8:05 AM | | procedure are in the | | QUANT | | PDT | | results section. | + +--------+ + + + | EXTRA LAVENDER TOP | Routin | 02/16/2020 | | Results for this | | TUBE | e | 8:05 AM | | procedure are in the | | | | PDT | | results section. | + +--------+ + + + | HEMOGLOBIN AND | Routin | 02/16/2020 | | Results for this | | HEMATOCRIT | e | 8:05 AM | | procedure are in the | | | | PDT | | results section. | + +--------+ + + + | BASIC METABOLIC | Routin | 02/16/2020 | | Results for this | | PANEL | e | 8:05 AM | | procedure are in the | | | | PDT | | results section. | + +--------+ + + + | TRANSFUSE 1 UNIT RED | Routin | 02/16/2020 | | | | BLOOD CELLS | e | 7:12 AM | | | | | | PDT | | | + +--------+ + + + | POC GLUCOSE | Routin | 02/16/2020 | | Results for this | | | e | 6:43 AM | | procedure are in the | | | | PDT | | results section. | + +--------+ + + + | PRODUCT: RBC | Routin | 02/16/2020 | | Results for this | | | e | 3:29 AM | | procedure are in the | | | | PDT | | results section. | + +--------+ + + + | RETIC COUNT | Routin | 02/16/2020 | | Results for this | | | e | 1:53 AM | | procedure are in the | | | | PDT | | results section. | + +--------+ + + + | CBC WITH | Routin | 02/16/2020 | | Results for this | | DIFFERENTIAL | e | 1:53 AM | | procedure are in the | | | | PDT | | results section. | + +--------+ + + + | TYPE AND SCREEN | Routin | 02/16/2020 | | Results for this | | | e | 1:53 AM | | procedure are in the | | | | PDT | | results section. | + +--------+ + + + | PARATHYROID HORMONE, | Routin | 02/16/2020 | | Results for this | | INTACT | e | 1:53 AM | | procedure are in the | | | | PDT | | results section. | + +--------+ + + + | B TYPE NATRIURETIC | Add-On | 02/16/2020 | | Results for this | | PEPTIDE | | 1:53 AM | | procedure are in the | | | | PDT | | results section. | + +--------+ + + + | VITAMIN B-12 | Routin | 02/16/2020 | | Results for this | | | e | 1:52 AM | | procedure are in the | | | | PDT | | results section. | + +--------+ + + + | IRON AND TRANSFERRIN | Add-On | 02/16/2020 | | Results for this | | | | 1:52 AM | | procedure are in the | | | | PDT | | results section. | + +--------+ + + + | LACTIC ACID | Routin | 02/16/2020 | | Results for this | | | e | 1:52 AM | | procedure are in the | | | | PDT | | results section. | + +--------+ + + + | FOLATE | Routin | 02/16/2020 | | Results for this | | | e | 1:52 AM | | procedure are in the | | | | PDT | | results section. | + +--------+ + + + | FERRITIN | Add-On | 02/16/2020 | | Results for this | | | | 1:52 AM | | procedure are in the | | | | PDT | | results section. | + +--------+ + + + | COMPREHENSIVE | Routin | 02/16/2020 | | Results for this | | METABOLIC PANEL | e | 1:52 AM | | procedure are in the | | | | PDT | | results section. | + +--------+ + + + | CORONAVIRUS | STAT | 02/16/2020 | | Results for this | | (COVID-19) NAAT | | 1:51 AM | | procedure are in the | | | | PDT | | results section. | + +--------+ + + + | XR CHEST 2 VIEWS | Routin | 02/15/2020 | | Results for this | | | e | 7:10 PM | | procedure are in the | | | | PDT | | results section. | + +--------+ + + + | IMAGING REPORT - | | 02/15/2020 | | Results for this | | EXTERNAL SCAN | | 12:00 AM | | procedure are in the | | | | PDT | | results section. | + +--------+ + + + | LABS - EXTERNAL SCAN | | 02/15/2020 | | Results for this | | | | 12:00 AM | | procedure are in the | | | | PDT | | results section. | + +--------+ + + + | ECG - EXTERNAL SCAN | | 02/15/2020 | | Results for this | | | | 12:00 AM | | procedure are in the | | | | PDT | | results section. | + +--------+ + + + documented in this encounter Results POC Glucose (02/21/2020 12:48 PM PDT) + +---------+ + + + | Component | Value | Ref Range | Performed | Pathologist | | | | | At | Signature | + +---------+ + + + | Glucose, | 148 (H) | 70 - 109 mg/dL | [facility] | | | [facility] | | | [facility] | | | | | [facility] | | | | | [facility] - | | | | | | LABORATORY | | + +---------+ + + + + + | Specimen | + + | Blood | + + + + + + + | Performing | Address | City/State/Zipcode | Phone Number | | Organization | | | | + + + + + | [facility] | [address] | [place] | [phone] | | [facility] | | [address] | | | - LABORATORY | | | | + + + + + POC Glucose (02/21/2020 8:41 AM PDT) + +---------+ + + + | Component | Value | Ref Range | Performed | Pathologist | | | | | At | Signature | + +---------+ + + + | Glucose, | 203 (H) | 70 - 109 mg/dL | [facility] | | | POC | | | [facility] | | | | | | [facility] | | | | | | [facility] - | | | | | | LABORATORY | | + +---------+ + + + + + | Specimen | + + | Blood | + + + + + + + | Performing | Address | City/State/Zipcode | Phone Number | | Organization | | | | + + + + + | [facility] | [address] | [place] | [phone] | | [facility] | | [address] | | | - LABORATORY | | | | + + + + + POC Glucose (02/21/2020 6:33 AM PDT) + +---------+ + + + | Component | Value | Ref Range | Performed | Pathologist | | | | | At | Signature | + +---------+ + + + | Glucose, | 169 (H) | 70 - 109 mg/dL | [facility] | | | P[facility] | | | [facility] | | | | | [facility] | | | | | | [facility] - | | | | | | LABORATORY | | + +---------+ + + + + + | Specimen | + + | Blood | + + + + + + + | Performing | Address | City/State/Zipcode | Phone Number | | Organization | | | | + + + + + | [facility] | [address] | [place] | [phone] | | [facility] | | [address] | | | - LABORATORY | | | | + + + + + CBC with Differential (02/21/2020 5:47 AM PDT) + + + + + + | Component | Value | Ref Range | Performed | Pathologist | | | | | At | Signature | + + + + + + | WBC | 13.9 (H) | 4.0 - 11.0 K/uL | [facility] | | | | | [facility] | | | | | | [facility] | | | | | | [facility] - | | | | | | LABORATORY | | + + + + + + | RBC | 3.24 (L) | 4.30 - 5.70 | [facility] | | | | | M/uL | [facility] | | | | | | [facility] | | | | | | CENTER - | | | | | | LABORATORY | | + + + + + + | Hemoglobin | 9.5 (L) | 13.5 - 18.0 | [facility] | | | | | g/dL | [facility] | | | | | | [facility] | | | | | | CENTER - | | | | | | LABORATORY | | + + + + + + | Hematocrit | 29.8 (L) | 40.0 - 51.0 % | [facility] | | | | | | [facility] | | | | | | [facility] | | | | | | CENTER - | | | | | | LABORATORY | | + + + + + + | MCV | 92.0 | 83.0 - 101.0 fL | [facility] | | | | | | [facility] | | | | | | [facility] | | | | | | C[facility] - | | | | | | LABORATORY | | + + + + + + | MCH | 29.3 | 28.0 - 35.0 pg | [facility] | | | | | | [facility] | | | | | | [facility] | | | | | | C[facility] - | | | | | | LABORATORY | | + + + + + + | MCHC | 31.9 (L) | 32.0 - 36.0 | [facility] | | | | | g/dL | [facility] | | | | | | [facility] | | | | | | CENTER - | | | | | | LABORATORY | | + + + + + + | RDW-CV | 15.9 (H) | <15.0 % | [facility] | | | | | | [facility] | | | [facility] | | [facility] | | | | | | [facility] - | | | | | | LABORATORY | | + + + + + + | RDW-SD | 54.1 (H) | 35.1 - 46.3 fL | [facility] | | | | | | [facility] | | | | | | [facility] | | | | | | CENTER - | | | | | | LABORATORY | | + + + + + + | Platelet | 276 | 140 - 440 K/uL | [facility] | | | Count | | | [facility] | | | [facility] | | [facility] | | | | | | CENTER - | | | | | | LABORATORY | | + + + + + + | MPV | 12.3 | 6.5 - 12.4 fL | [facility] | | | | | | [facility] | | | | | | [facility] | | | | | | CENTER - | | | | | | LABORATORY | | + + + + + + | % | 75.0 | 45.0 - 82.0 % | [facility] | | | Neutrophils | | | [facility] | | | | | | [facility] | | | | | | CENTER - | | | | | | LABORATORY | | + + + + + + | % | 14.4 (L) | 20.0 - 45.0 % | [facility] | | | Lymphocytes | | | [facility] | | | | | | [facility] | | | | | | CENTER - | | | | | | LABORATORY | | + + + + + + | % Monocytes | 7.3 | 4.0 - 12.0 % | [facility] | | | | | | [facility] | | | | | | [facility] | | | | | | CENTER - | | | | | | LABORATORY | | + + + + + + | % | 1.9 | 0.0 - 5.0 % | [facility] | | | Eosinophils | | | [facility] | | | | | | [facility] | | | | | | CENTER - | | | | | | LABORATORY | | + + + + + + | % Basophils | 0.7 | 0.0 - 1.0 % | [facility] | | | | | | [facility] | | | | | | [facility] | | | | | | CENTER - | | | | | | LABORATORY | | + + + + + + | % Immature | 0.7 (H)Comment: | 0.0 - 0.4 % | [facility] | | | Granulocyte | Preliminary studies have | | [facility] | | | s | indicated the IG% | | MEDICAL | | | | and/or IG# show promise | | CENTER - | | | | as an early indicator | | LABORATORY | | | | for infection. | | | | + + + + + + | Absolute | 10.39 (H) | 1.80 - 8.50 | [facility] | | | Neutrophils | | K/uL | [facility] | | | | | | MEDICAL | | | | | | CENTER - | | | | | | LABORATORY | | + + + + + + | Absolute | 2.00 | 0.60 - 3.20 | [facility] | | | Lymphocytes | | K/uL | [facility] | | | | | | MEDICAL | | | | | | CENTER - | | | | | | LABORATORY | | + + + + + + | Absolute | 1.01 (H) | 0.00 - 1.00 | [facility] | | | Monocytes | | K/uL | [facility] | | | | | | [facility] | | | | | | CENTER - | | | | | | LABORATORY | | + + + + + + | Absolute | 0.27 | 0.00 - 0.40 | [facility] | | | Eosinophils | | K/uL | [facility] | | | | | | MEDICAL | | | | | | CENTER - | | | | | | LABORATORY | | + + + + + + | Absolute | 0.10 | 0.00 - 0.10 | [facility] | | | Basophils | | K/uL | [facility] | | | | | | MEDICAL | | | | | | CENTER - | | | | | | LABORATORY | | + + + + + + | Absolute | 0.10 (H) | 0.00 - 0.03 | [facility] | | | Immature | | K/uL | [facility] | | | Granulocyte | | | MEDICAL | | | s | | | CENTER - | | | | | | LABORATORY | | + + + + + + | % nRBC | 0 | 0 - 2 per 100 | [facility] | | | | | WBCs | [facility] | | | | | | [facility] | | | | | | CENTER - | | | | | | LABORATORY | | + + + + + + | Absolute | 0.00 | 0.00 - 0.01 | [facility] | | | nRBC | | K/uL | [facility] | | | | | | [facility] | | | | | | CENTER - | | | | | | LABORATORY | | + + + + + + + + | Specimen | + + | Blood | + + + + + + + | Performing | Address | City/State/Zipcode | Phone Number | | Organization | | | | + + + + + | [facility] | [address] | [place] | [phone] | | [facility] | | [address] | | | - LABORATORY | | | | + + + + + Renal Function Panel (02/21/2020 5:47 AM PDT) + + + + + + | Component | Value | Ref Range | Performed | Pathologist | | | | | At | Signature | + + + + + + | Na | 144 | 136 - 145 | [facility] | | | | | mmol/L | [facility] | | | | | | MEDICAL | | | | | | CENTER - | | | | | | LABORATORY | | + + + + + + | K | 3.8 | 3.4 - 5.1 | [facility] | | | | | mmol/L | [facility] | | | | | | [facility] | | | | | | CENTER - | | | | | | LABORATORY | | + + + + + + | Cl | 112 (H) | 98 - 107 mmol/L | [facility] | | | | | | [facility] | | | | | | [facility]ICAL | | | | | | CENTER - | | | | | | LABORATORY | | + + + + + + | CO2 | 21 | 20 - 31 mmol/L | [facility] | | | | | | [facility] | | | | | | [facility] | | | | | | CENTER - | | | | | | LABORATORY | | + + + + + + | Anion Gap | 11 | 3 - 16 mmol/L | [facility] | | | | | | [facility] | | | | | | [facility] | | | | | | CENTER - | | | | | | LABORATORY | | + + + + + + | Glucose | 156 (H) | 60 - 106 mg/dL | [facility] | | | | | | [facility] | | | | | | [facility] | | | | | | CENTER - | | | | | | LABORATORY | | + + + + + + | BUN | 45 (H) | 9 - 23 mg/dL | [facility] | | | | | | [facility] | | | | | | [facility]ICAL | | | | | | CENTER - | | | | | | LABORATORY | | + + + + + + | Creatinine | 4.07 (H) | 0.70 - 1.30 | [facility] | | | | | mg/dL | [facility] | | | | | | MEDICAL | | | | | | CENTER - | | | | | | LABORATORY | | + + + + + + | eGFR if not | 17 (L)Comment: | >=60 | [facility] | | | | GLOMERULAR FILTRATION | mL/min/1.73m2 | [facility] | | | [place] | RATE,ESTIMATED | | MEDICAL | | | | mL/min/1.97s7Sgtg than | | CENTER - | | | | 60 Chronic kidney | | LABORATORY | | | | disease,if found over a | | | | | | 3-month period.Less than | | | | | | 15 Kidney failureFor | | | | | | | | | | | | Americans,multiply the | | | | | | calculated GFR by 1.21. | | | | | | | | | | + + + + + + | Calcium | 7.4 (L) | 8.7 - 10.4 | [facility] | | | | | mg/dL | [facility] | | | | | | [facility] | | | | | | CENTER - | | | | | | LABORATORY | | + + + + + + | Albumin | 2.1 (L) | 3.2 - 4.8 g/dL | [facility] | | | | | | [facility] | | | | | | [facility] | | | | | | CENTER - | | | | | | LABORATORY | | + + + + + + | Phosphorus | 6.5 (H) | 2.4 - 5.1 mg/dL | [facility] | | | | | | [facility] | | | | | | [facility]ICAL | | | | | | CENTER - | | | | | | LABORATORY | | + + + + + + | BUN/Creatin | 11.1 | | [facility] | | | ine Ratio | | | [facility] | | | | | | [facility] | | | | | | CENTER - | | | | | | LABORATORY | | + + + + + + + + | Specimen | + + | Blood | + + + + + + + | Performing | Address | City/State/Zipcode | Phone Number | | Organization | | | | + + + + + | [facility] | [address] | [place] | [phone] | | [facility] | | [address] | | | - LABORATORY | | | | + + + + + C-Reactive Protein (02/21/2020 5:47 AM PDT) + + + + + + | Component | Value | Ref Range | Performed | Pathologist | | | | | At | Signature | + + + + + + | CRP | 51.60 (H) | <10.00 mg/L | [facility] | | | | | | [facility] | | | | | | [facility] | | | | | | CENTER - | | | | | | LABORATORY | | + + + + + + + + | Specimen | + + | Blood | + + + + + + + | Performing | Address | City/State/Zipcode | Phone Number | | Organization | | | | + + + + + | [facility] | [address] | [place], [place] | [phone] | | [facility] | | [address] | | | - LABORATORY | | | | + + + + + POC Glucose (02/20/2020 9:50 PM PDT) + +-------+ + + + | Component | Value | Ref Range | Performed | Pathologist | | | | | At | Signature | + +-------+ + + + | Glucose, | 97 | 70 - 109 mg/dL | [facility] | | | POC | | | [facility] | | | | | | MEDICAL | | | | | | CENTER - | | | | | | LABORATORY | | + +-------+ + + + + + | Specimen | + + | Blood | + + + + + + + | Performing | Address | City/State/Zipcode | Phone Number | | Organization | | | | + + + + + | [facility] | [address] | [place] | [phone] | | [facility] | | [address] | | | - LABORATORY | | | | + + + + + POC Glucose (02/20/2020 5:30 PM PDT) + +---------+ + + + | Component | Value | Ref Range | Performed | Pathologist | | | | | At | Signature | + +---------+ + + + | Glucose, | 123 (H) | 70 - 109 mg/dL | [facility] | | | POC | | | [facility] | | | | | | [facility] | | | | | | CENTER - | | | | | | LABORATORY | | + +---------+ + + + + + | Specimen | + + | Blood | + + + + + + + | Performing | Address | City/State/Zipcode | Phone Number | | Organization | | | | + + + + + | [facility] | [address] | [place] | [phone] | | [facility] | | [address] | | | - LABORATORY | | | | + + + + + POC Glucose (02/20/2020 12:39 PM PDT) + +---------+ + + + | Component | Value | Ref Range | Performed | Pathologist | | | | | At | Signature | + +---------+ + + + | Glucose, | 172 (H) | 70 - 109 mg/dL | [facility] | | | POC | | | [facility] | | | | | | MEDICAL | | | | | | CENTER - | | | | | | LABORATORY | | + +---------+ + + + + + | Specimen | + + | Blood | + + + + + + + | Performing | Address | City/State/Zipcode | Phone Number | | Organization | | | | + + + + + | [facility] | [address] | [place] | [phone] | | [facility] | | [address] | | | - LABORATORY | | | | + + + + + POC Glucose (02/20/2020 7:25 AM PDT) + +---------+ + + + | Component | Value | Ref Range | Performed | Pathologist | | | | | At | Signature | + +---------+ + + + | Glucose, | 154 (H) | 70 - 109 mg/dL | [facility] | | | POC | | | [facility] | | [facility] | | | [facility] | | | | | | CENTER - | | | | | | LABORATORY | | + +---------+ + + + + + | Specimen | + + | Blood | + + + + + + + | Performing | Address | City/State/[facility] Corporationcode | Phone Number | | Organization | | | | + + + + + | [facility] | [address] | [place] | [phone] | | [facility] | | [address] | | | - LABORATORY | | | | + + + + + CBC with Differential (02/20/2020 3:55 AM PDT) + + + + + + | Component | Value | Ref Range | Performed | Pathologist | | | | | At | Signature | + + + + + + | WBC | 15.0 (H) | 4.0 - 11.0 K/uL | [facility] | | | | | | [facility] | | | | | | MEDICAL | | | | | | CENTER - | | | | | | LABORATORY | | + + + + + + | RBC | 3.20 (L) | 4.30 - 5.70 | [facility] | | | | | M/uL | [facility] | | | | | | MEDICAL | | | | | | CENTER - | | | | | | LABORATORY | | + + + + + + | Hemoglobin | 9.4 (L) | 13.5 - 18.0 | [facility] | | | | | g/dL | [facility] | | | | | | MEDICAL | | | | | | CENTER - | | | | | | LABORATORY | | + + + + + + | Hematocrit | 28.7 (L) | 40.0 - 51.0 % | [facility] | | | | | | [facility] | | | | | | MEDICAL | | | | | | CENTER - | | | | | | LABORATORY | | + + + + + + | MCV | 89.7 | 83.0 - 101.0 fL | [facility] | | | | | | [facility] | | | | | | MEDICAL | | | | | | CENTER - | | | | | | LABORATORY | | + + + + + + | MCH | 29.4 | 28.0 - 35.0 pg | [facility] | | | | | | [facility] | | | | | | [facility]ICAL | | | | | | CENTER - | | | | | | LABORATORY | | + + + + + + | MCHC | 32.8 | 32.0 - 36.0 | [facility] | | | | | g/dL | [facility] | | | | | | MEDICAL | | | | | | CENTER - | | | | | | LABORATORY | | + + + + + + | RDW-CV | 15.8 (H) | <15.0 % | [facility] | | | | | | [facility] | | | | | | [facility]ICAL | | | | | | CENTER - | | | | | | LABORATORY | | + + + + + + | RDW-SD | 51.9 (H) | 35.1 - 46.3 fL | [facility] | | | | | | [facility] | | | | | | MEDICAL | | | | | | CENTER - | | | | | | LABORATORY | | + + + + + + | Platelet | 272 | 140 - 440 K/uL | [facility] | | | Count | | | [facility] | | | | | | MEDICAL | | | | | | CENTER - | | | | | | LABORATORY | | + + + + + + | MPV | 12.3 | 6.5 - 12.4 fL | [facility] | | | | | | [facility] | | | | | | [facility]ICAL | | | | | | CENTER - | | | | | | LABORATORY | | + + + + + + | % | 74.1 | 45.0 - 82.0 % | [facility] | | | Neutrophils | | | [facility] | | | | | | MEDICAL | | | | | | CENTER - | | | | | | LABORATORY | | + + + + + + | % | 14.6 (L) | 20.0 - 45.0 % | [facility] | | | Lymphocytes | | | [facility] | | | | | | MEDICAL | | | | | | CENTER - | | | | | | LABORATORY | | + + + + + + | % Monocytes | 7.7 | 4.0 - 12.0 % | [facility] | | | | | | [facility] | | | | | | [facility]ICAL | | | | | | CENTER - | | | | | | LABORATORY | | + + + + + + | % | 2.1 | 0.0 - 5.0 % | [facility] | | | Eosinophils | | | [facility] | | | | | | MEDICAL | | | | | | CENTER - | | | | | | LABORATORY | | + + + + + + | % Basophils | 1.0 | 0.0 - 1.0 % | [facility] | | | | | | [facility] | | | | | | MEDICAL | | | | | | CENTER - | | | | | | LABORATORY | | + + + + + + | % Immature | 0.5 (H)Comment: | 0.0 - 0.4 % | [facility] | | | Granulocyte | Preliminary studies have | | [facility] | | | s | indicated the IG% | | MEDICAL | | | | and/or IG# show promise | | CENTER - | | | | as an early indicator | | LABORATORY | | | | for infection. | | | | + + + + + + | Absolute | 11.10 (H) | 1.80 - 8.50 | [facility] | | | Neutrophils | | K/uL | [facility] | | | | | | MEDICAL | | | | | | CENTER - | | | | | | LABORATORY | | + + + + + + | Absolute | 2.19 | 0.60 - 3.20 | [facility] | | | Lymphocytes | | K/uL | [facility] | | | | | | MEDICAL | | | | | | CENTER - | | | | | | LABORATORY | | + + + + + + | Absolute | 1.15 (H) | 0.00 - 1.00 | [facility] | | | Monocytes | | K/uL | [facility] | | | | | | MEDICAL | | | | | | CENTER - | | | | | | LABORATORY | | + + + + + + | Absolute | 0.31 | 0.00 - 0.40 | [facility] | | | Eosinophils | | K/uL | [facility] | | | | | | MEDICAL | | | | | | CENTER - | | | | | | LABORATORY | | + + + + + + | Absolute | 0.15 (H) | 0.00 - 0.10 | [facility] | | | Basophils | | K/uL | [facility] | | | | | | MEDICAL | | | | | | CENTER - | | | | | | LABORATORY | | + + + + + + | Absolute | 0.07 (H) | 0.00 - 0.03 | [facility] | | | Immature | | K/uL | [facility] | | | Granulocyte | | | MEDICAL | | | s | | | CENTER - | | | | | | LABORATORY | | + + + + + + | % nRBC | 0 | 0 - 2 per 100 | [facility] | | | | | WBCs | [facility] | | | | | | MEDICAL | | | | | | CENTER - | | | | | | LABORATORY | | + + + + + + | Absolute | 0.00 | 0.00 - 0.01 | [facility] | | | nRBC | | K/uL | [facility] | | | | | | MEDICAL | | | | | | CENTER - | | | | | | LABORATORY | | + + + + + + + + | Specimen | + + | Blood | + + + + + + + | Performing | Address | City/State/Zipcode | Phone Number | | Organization | | | | + + + + + | [facility] | [address] | [place] | [phone] | | [facility] | | [address] | | | - LABORATORY | | | | + + + + + Renal Function Panel (02/20/2020 3:55 AM PDT) + + + + + + | Component | Value | Ref Range | Performed | Pathologist | | | | | At | Signature | + + + + + + | Na | 143 | 136 - 145 | [facility] | | | | | mmol/L | [facility] | | | | | | MEDICAL | | | | | | CENTER - | | | | | | LABORATORY | | + + + + + + | K | 3.9 | 3.4 - 5.1 | [facility] | | | | | mmol/L | [facility] | | | | | | MEDICAL | | | | | | CENTER - | | | | | | LABORATORY | | + + + + + + | Cl | 113 (H) | 98 - 107 mmol/L | [facility] | | | | | | [facility] | | | | | | [facility]ICAL | | | | | | CENTER - | | | | | | LABORATORY | | + + + + + + | CO2 | 23 | 20 - 31 mmol/L | [facility] | | | | | | [facility] | | | | | | [facility]ICAL | | | | | | CENTER - | | | | | | LABORATORY | | + + + + + + | Anion Gap | 7 | 3 - 16 mmol/L | [facility] | | | | | | [facility] | | | | | | [facility]ICAL | | | | | | CENTER - | | | | | | LABORATORY | | + + + + + + | Glucose | 98 | 60 - 106 mg/dL | [facility] | | | | | | [facility] | | | | | | [facility]ICAL | | | | | | CENTER - | | | | | | LABORATORY | | + + + + + + | BUN | 43 (H) | 9 - 23 mg/dL | [facility] | | | | | | [facility] | | | | | | [facility]ICAL | | | | | | CENTER - | | | | | | LABORATORY | | + + + + + + | Creatinine | 4.02 (H) | 0.70 - 1.30 | [facility] | | | | | mg/dL | [facility] | | | | | | MEDICAL | | | | | | CENTER - | | | | | | LABORATORY | | + + + + + + | eGFR if not | 18 (L)Comment: | >=60 | [facility] | | | | GLOMERULAR FILTRATION | mL/min/1.73m2 | [facility] | | | [place] | RATE,ESTIMATED | | MEDICAL | | | | mL/min/1.72n8Nzgg than | | CENTER - | | | | 60 Chronic kidney | | LABORATORY | | | | disease,if found over a | | | | | | 3-month period.Less than | | | | | | 15 Kidney failureFor | | | | | | | | | | | | Americans,multiply the | | | | | | calculated GFR by 1.21. | | | | | | | | | | + + + + + + | Calcium | 7.2 (L) | 8.7 - 10.4 | [facility] | | | | | mg/dL | [facility] | | | | | | [facility] | | | | | | CENTER - | | | | | | LABORATORY | | + + + + + + | Albumin | 2.1 (L) | 3.2 - 4.8 g/dL | [facility] | | | | | | [facility] | | | | | | [facility] | | | | | | CENTER - | | | | | | LABORATORY | | + + + + + + | Phosphorus | 6.3 (H) | 2.4 - 5.1 mg/dL | [facility] | | | | | | [facility] | | | | | | MEDICAL | | | | | | CENTER - | | | | | | LABORATORY | | + + + + + + | BUN/Creatin | 10.7 | | [facility] | | | ine Ratio | | | [facility] | | | | | | MEDICAL | | | | | | CENTER - | | | | | | LABORATORY | | + + + + + + + + | Specimen | + + | Blood | + + + + + + + | Performing | Address | City/State/Zipcode | Phone Number | | Organization | | | | + + + + + | [facility] | [address] | [place] | [phone] | | [facility] | | [address] | | | - LABORATORY | | | | + + + + + Hepatitis A, B, C Franki López (02/20/2020 3:55 AM PDT) + + + + + + | Component | Value | Ref Range | Performed | Pathologist | | | | | At | Signature | + + + + + + | HEP A TOTAL | Negative | Negative | [facility] | | | AB | | | LAB [facility] | | | | | | - [facility] | | + + + + + + | Hepatitis B | Negative | Negative | [facility] | | | Surface Ag | | | LAB [facility] | | | | | | - [facility] | | + + + + + + | Hepatitis B | Negative | Negative | [facility] | | | Core Ab, | | | LAB [facility] | | | Total | | | - [facility] | | + + + + + + | Hepatitis C | 0.3Comment: | 0.0 - 0.9 s/co | [facility] | | | Ab | | ratio | LAB [facility] | | | | Negative: | | - [facility] | | | | < 0.8 | | | | | | | | | | | | Indeterminate: | | | | | | 0.8 - 0.9 | | | | | | | | | | | | Positive: | | | | | | > 0.9 The CDC | | | | | | recommends that a | | | | | | positive HCV antibody | | | | | | result be followed up | | | | | | with a HCV Nucleic Acid | | | | | | Amplification test | | | | | | ([id number]). | | | | + + + + + + + + | Specimen | + + | Blood | + + + + + | Narrative | Performed At | + + + | Performed at: 01 - [facility] [place] [address], | REFERENCE LAB | | [place], [place] [id number] Word Processor Operator: Jerome Agudelo MD, Phone: | [facility] | | [phone] | | + + + + + + + + | Performing | Address | City/State/Zipcode | Phone Number | | Organization | | | | + + + + + | REFERENCE LAB | [address] | [place], [place] | [phone] | | [facility] | [address] [facility] | [address] | | + + + + + POC Glucose (02/20/2020 3:40 AM PDT) + +-------+ + + + | Component | Value | Ref Range | Performed | Pathologist | | | | | At | Signature | + +-------+ + + + | Glucose, | 100 | 70 - 109 mg/dL | [facility] | | | POC | | | [facility] | | | | | | MEDICAL | | | | | | CENTER - | | | | | | LABORATORY | | + +-------+ + + + + + | Specimen | + + | Blood | + + + + + + + | Performing | Address | City/State/Zipcode | Phone Number | | Organization | | | | + + + + + | [facility] | [address] | [place] | [phone] | | [facility] | | [address] | | | - LABORATORY | | | | + + + + + POC Glucose (02/20/2020 2:25 AM PDT) + +---------+ + + + | Component | Value | Ref Range | Performed | Pathologist | | | | | At | Signature | + +---------+ + + + | Glucose, | 113 (H) | 70 - 109 mg/dL | [facility] | | | POC | | | [facility] | | | | | | MEDICAL | | | | | | CENTER - | | | | | | LABORATORY | | + +---------+ + + + + + | Specimen | + + | Blood | + + + + + + + | Performing | Address | City/State/Zipcode | Phone Number | | Organization | | | | + + + + + | [facility] | [address] | [place] | [phone] | | [facility] | | [address] | | | - LABORATORY | | | | + + + + + POC Glucose (02/19/2020 11:59 PM PDT) + +-------+ + + + | Component | Value | Ref Range | Performed | Pathologist | | | | | At | Signature | + +-------+ + + + | Glucose, | 100 | 70 - 109 mg/dL | [facility] | | | POC | | | [facility] | | | | | | MEDICAL | | | | | | CENTER - | | | | | | LABORATORY | | + +-------+ + + + + + | Specimen | + + | Blood | + + + + + + + | Performing | Address | City/State/Zipcode | Phone Number | | Organization | | | | + + + + + | [facility] | [address] | [place] | [phone] | | [facility] | | [address] | | | - LABORATORY | | | | + + + + + POC Glucose (02/19/2020 10:16 PM PDT) + +-------+ + + + | Component | Value | Ref Range | Performed | Pathologist | | | | | At | Signature | + +-------+ + + + | Glucose, | 99 | 70 - 109 mg/dL | [facility] | | | POC | | | [facility] | | | | | | MEDICAL | | | | | | CENTER - | | | | | | LABORATORY | | + +-------+ + + + + + | Specimen | + + | Blood | + + + + + + + | Performing | Address | City/State/Zipcode | Phone Number | | Organization | | | | + + + + + | [facility] | [address] | [place] | [phone] | | [facility] | | [address] | | | - LABORATORY | | | | + + + + + POC Glucose (02/19/2020 9:33 PM PDT) + +-------+ + + + | Component | Value | Ref Range | Performed | Pathologist | | | | | At | Signature | + +-------+ + + + | Glucose, | 79 | 70 - 109 mg/dL | [facility] | | | POC | | | [facility] | | | | | | MEDICAL | | | | | | CENTER - | | | | | | LABORATORY | | + +-------+ + + + + + | Specimen | + + | Blood | + + + + + + + | Performing | Address | City/State/Zipcode | Phone Number | | Organization | | | | + + + + + | [facility] | [address] | [place] | [phone] | | [facility] | | [address] | | | - LABORATORY | | | | + + + + + POC Glucose (02/19/2020 5:47 PM PDT) + +---------+ + + + | Component | Value | Ref Range | Performed | Pathologist | | | | | At | Signature | + +---------+ + + + | Glucose, | 135 (H) | 70 - 109 mg/dL | [facility] | | | P[facility] | | | [facility] | | | | | | MEDICAL | | | | | | CENTER - | | | | | | LABORATORY | | + +---------+ + + + + + | Specimen | + + | Blood | + + + + + + + | Performing | Address | City/State/Zipcode | Phone Number | | Organization | | | | + + + + + | [facility] | [address] | [place] | [phone] | | [facility] | | [address] | | | - LABORATORY | | | | + + + + + MRI Foot Left wo Contrast (02/19/2020 1:48 PM PDT) + + | Specimen | + + | | + + + + + | Impressions | Performed At | + + + | No evidence for osteomyelitis. Diffuse cellulitis. Muscle | [facility] | | signal consistent with diabetic neuropathy versus myositis. | | | Dictated and Signed by: Neri Ley MD Electronically signed: | | | 02/19/2020 2:12 PM | | + + + + + + | Narrative | Performed At | + + + | EXAM: MRI FOOT LEFT WO CONTRAST dated 02/15/2020 10:36 PM | [facility] | | HISTORY: diabetic abscess , Left heel. COMPARISON: None. | | | TECHNIQUE: Multiplanar multisequence MR imaging of the left hindfoot | | | utilizing STIR and T1 sequences. Imaging is performed on a 3 Kacie | | | MRI. FINDINGS: The patient has had partial amputation of | | | the fifth digit the level of the proximal metatarsal. There are | | | no areas of altered T1 or STIR signal to suggest active osteomyelitis. | | | There is diffuse subcutaneous edema. There is diffuse | | | hyperintensity throughout the musculature of the foot. There is no | | | focal fluid collection. There is no joint effusion. The major | | | tendons within the [id number]-zk-[id number] are grossly intact. | | + + + + + | Procedure Note | + + | Cheng, Rad Results In - 02/19/2020 2:15 PM PDT EXAM: MRI FOOT LEFT WO CONTRAST dated | | 02/15/2020 10:36 PMHISTORY: diabetic abscess , Left heel.COMPARISON: None.TECHNIQUE: | | Multiplanar multisequence MR imaging of the left hindfoot utilizingSTIR and T1 | | sequences. Imaging is performed on a 3 Kacie MRI. FINDINGS: The patient has had partial | | amputation of the fifth digit the level of theproximal metatarsal.There are no areas of | | altered T1 or STIR signal to suggest active osteomyelitis.There is diffuse subcutaneous | | edema. There is diffuse hyperintensity throughoutthe musculature of the foot. There | | is no focal fluid collection. There is nojoint effusion.The major tendons within the | | [id number] are grossly intact.IMPRESSION: No evidence for osteomyelitis.Diffuse | | cellulitis.Muscle signal consistent with diabetic neuropathy versus myositis.Dictated | | and Signed by: Neri Ley MD Electronically signed: 02/19/2020 2:12 PM | |The patient has had partial amputation of the fifth digit the level of the | |proximal metatarsal. | | | |There are no areas of altered T1 or STIR signal to suggest active osteomyelitis. | | | |There is diffuse subcutaneous edema. There is diffuse hyperintensity throughout | |the musculature of the foot. There is no focal fluid collection. There is no | |joint effusion. | | | |The major tendons within the pukzy-bp-elph are grossly intact. | | | |IMPRESSION: | | | |No evidence for osteomyelitis. | | | |Diffuse cellulitis. | | | |Muscle signal consistent with diabetic neuropathy versus myositis. | | | |Dictated and Signed by: Neri Ley MD | | Electronically signed: 02/19/2020 2:12 PM | + + + +---------+ + + | Performing | Address | City/State/Zipcode | Phone Number | | Organization | | | | + +---------+ + + | [facility] | | | | + +---------+ + + POC Glucose (02/19/2020 12:23 PM PDT) + +---------+ + + + | Component | Value | Ref Range | Performed | Pathologist | | | | | At | Signature | + +---------+ + + + | Glucose, | 265 (H) | 70 - 109 mg/dL | [facility] | | | P[facility] | | | [facility] | | | | | | MEDICAL | | | | | | CENTER - | | | | | | LABORATORY | | + +---------+ + + + + + | Specimen | + + | Blood | + + + + + + + | Performing | Address | City/State/Zipcode | Phone Number | | Organization | | | | + + + + + | [facility] | [address] | [place] | [phone] | | [facility] | | [address] | | | - LABORATORY | | | | + + + + + POC Glucose (02/19/2020 6:37 AM PDT) + +---------+ + + + | Component | Value | Ref Range | Performed | Pathologist | | | | | At | Signature | + +---------+ + + + | Glucose, | 254 (H) | 70 - 109 mg/dL | [facility] | | | POC | | | [facility] | | | | | | MEDICAL | | | | | | CENTER - | | | | | | LABORATORY | | + +---------+ + + + + + | Specimen | + + | Blood | + + + + + + + | Performing | Address | City/State/Zipcode | Phone Number | | Organization | | | | + + + + + | [facility] | [address] | [place] | [phone] | | [facility] | | [address] | | | - LABORATORY | | | | + + + + + XR Chest AP Portable (02/19/2020 5:54 AM PDT) + + | Specimen | + + | | + + + + + | Impressions | Performed At | + + + | Stable moderate opacity and airspace disease in the right lower lobe | [facility] | | that may represent atelectasis or pneumonia. Dictated and Signed | | | by: Zenon Cruz MD Electronically signed: 02/19/2020 9:06 AM | | + + + + + + | Narrative | Performed At | + + + | XR CHEST AP PORTABLE 02/19/2020 5:54 AM HISTORY: acute renal | [facility] | | failure. COMPARISON: Multiple priors. Findings: Heart size is | | | within normal limits. Aorta is normal. Mediastinum demonstrates no | | | acute findings. Central pulmonary vasculature is normal. Stable | | | moderate opacity and airspace disease are in the right lower lobe | | | that may represent atelectasis or pneumonia. The left lung is clear. | | | There are no acute osseous abnormalities. | | + + + + + | Procedure Note | + + | Cheng, Rad Results In - 02/19/2020 9:09 AM PDT XR CHEST AP PORTABLE 02/19/2020 5:54 AM | | | | HISTORY: acute renal failure. | | | | COMPARISON: Multiple priors. | | | | Findings: | | Heart size is within normal limits. Aorta is normal. Mediastinum demonstrates no | | acute findings. Central pulmonary vasculature is normal. Stable moderate opacity | | and airspace disease are in the right lower lobe that may represent atelectasis | | or pneumonia. The left lung is clear. There are no acute osseous abnormalities. | | | | IMPRESSION: | | Stable moderate opacity and airspace disease in the right lower lobe that may | | represent atelectasis or pneumonia. | | | | Dictated and Signed by: Zenon Cruz MD | | Electronically signed: 02/19/2020 9:06 AM | + + + +---------+ + + | Performing | Address | City/State/Zipcode | Phone Number | | Organization | | | | + +---------+ + + | [facility] | | | | + +---------+ + + CBC with Differential (02/19/2020 4:48 AM PDT) + + + + + + | Component | Value | Ref Range | Performed | Pathologist | | | | | At | Signature | + + + + + + | WBC | 14.4 (H) | 4.0 - 11.0 K/uL | [facility] | | | | | | [facility] | | | | | | MEDICAL | | | | | | CENTER - | | | | | | LABORATORY | | + + + + + + | RBC | 3.26 (L) | 4.30 - 5.70 | [facility] | | | | | M/uL | [facility] | | | | | | MEDICAL | | | | | | CENTER - | | | | | | LABORATORY | | + + + + + + | Hemoglobin | 9.6 (L) | 13.5 - 18.0 | [facility] | | | | | g/dL | [facility] | | | | | | MEDICAL | | | | | | CENTER - | | | | | | LABORATORY | | + + + + + + | Hematocrit | 29.3 (L) | 40.0 - 51.0 % | [facility] | | | | | | [facility] | | | | | | MEDICAL | | | | | | CENTER - | | | | | | LABORATORY | | + + + + + + | MCV | 89.9 | 83.0 - 101.0 fL | [facility] | | | | | | [facility] | | | | | | MEDICAL | | | | | | CENTER - | | | | | | LABORATORY | | + + + + + + | MCH | 29.4 | 28.0 - 35.0 pg | [facility] | | | | | | [facility] | | | | | | MEDICAL | | | | | | CENTER - | | | | | | LABORATORY | | + + + + + + | MCHC | 32.8 | 32.0 - 36.0 | [facility] | | | | | g/dL | [facility] | | | | | | MEDICAL | | | | | | CENTER - | | | | | | LABORATORY | | + + + + + + | RDW-CV | 16.3 (H) | <15.0 % | [facility] | | | | | | [facility] | | | | | | MEDICAL | | | | | | CENTER - | | | | | | LABORATORY | | + + + + + + | RDW-SD | 53.9 (H) | 35.1 - 46.3 fL | [facility] | | | | | | [facility] | | | | | | MEDICAL | | | | | | CENTER - | | | | | | LABORATORY | | + + + + + + | Platelet | 286 | 140 - 440 K/uL | [facility] | | | Count | | | [facility] | | | | | | MEDICAL | | | | | | CENTER - | | | | | | LABORATORY | | + + + + + + | MPV | 12.0 | 6.5 - 12.4 fL | [facility] | | | | | | [facility] | | | | | | MEDICAL | | | | | | CENTER - | | | | | | LABORATORY | | + + + + + + | % | 77.0 | 45.0 - 82.0 % | [facility] | | | Neutrophils | | | [facility] | | | | | | MEDICAL | | | | | | CENTER - | | | | | | LABORATORY | | + + + + + + | % | 14.5 (L) | 20.0 - 45.0 % | [facility] | | | Lymphocytes | | | [facility] | | | | | | MEDICAL | | | | | | CENTER - | | | | | | LABORATORY | | + + + + + + | % Monocytes | 6.5 | 4.0 - 12.0 % | [facility] | | | | | | [facility] | | | | | | MEDICAL | | | | | | CENTER - | | | | | | LABORATORY | | + + + + + + | % | 0.8 | 0.0 - 5.0 % | [facility] | | | Eosinophils | | | [facility] | | | | | | MEDICAL | | | | | | CENTER - | | | | | | LABORATORY | | + + + + + + | % Basophils | 0.8 | 0.0 - 1.0 % | [facility] | | | | | | [facility] | | | | | | MEDICAL | | | | | | CENTER - | | | | | | LABORATORY | | + + + + + + | % Immature | 0.4 | 0.0 - 0.4 % | [facility] | | | Granulocyte | | | [facility] | | | s | | | MEDICAL | | | | | | CENTER - | | | | | | LABORATORY | | + + + + + + | Absolute | 11.10 (H) | 1.80 - 8.50 | [facility] | | | Neutrophils | | K/uL | [facility] | | | | | | MEDICAL | | | | | | CENTER - | | | | | | LABORATORY | | + + + + + + | Absolute | 2.09 | 0.60 - 3.20 | [facility] | | | Lymphocytes | | K/uL | [facility] | | | | | | MEDICAL | | | | | | CENTER - | | | | | | LABORATORY | | + + + + + + | Absolute | 0.94 | 0.00 - 1.00 | [facility] | | | Monocytes | | K/uL | [facility] | | | | | | MEDICAL | | | | | | CENTER - | | | | | | LABORATORY | | + + + + + + | Absolute | 0.11 | 0.00 - 0.40 | [facility] | | | Eosinophils | | K/uL | [facility] | | | | | | MEDICAL | | | | | | CENTER - | | | | | | LABORATORY | | + + + + + + | Absolute | 0.12 (H) | 0.00 - 0.10 | [facility] | | | Basophils | | K/uL | [facility] | | | | | | MEDICAL | | | | | | CENTER - | | | | | | LABORATORY | | + + + + + + | Absolute | 0.06 (H) | 0.00 - 0.03 | [facility] | | | Immature | | K/uL | [facility] | | | Granulocyte | | | MEDICAL | | | s | | | CENTER - | | | | | | LABORATORY | | + + + + + + | % nRBC | 0 | 0 - 2 per 100 | [facility] | | | | | WBCs | [facility] | | | | | | MEDICAL | | | | | | CENTER - | | | | | | LABORATORY | | + + + + + + | Absolute | 0.00 | 0.00 - 0.01 | [facility] | | | nRBC | | K/uL | [facility] | | | | | | MEDICAL | | | | | | CENTER - | | | | | | LABORATORY | | + + + + + + + + | Specimen | + + | Blood | + + + + + + + | Performing | Address | City/State/Zipcode | Phone Number | | Organization | | | | + + + + + | [facility] | [address] | [place] | [phone] | | [facility] | | [address] | | | - LABORATORY | | | | + + + + + Renal Function Panel (02/19/2020 4:48 AM PDT) + + + + + + | Component | Value | Ref Range | Performed | Pathologist | | | | | At | Signature | + + + + + + | Na | 140 | 136 - 145 | [facility] | | | | | mmol/L | [facility] | | | | | | MEDICAL | | | | | | CENTER - | | | | | | LABORATORY | | + + + + + + | K | 4.1 | 3.4 - 5.1 | [facility] | | | | | mmol/L | [facility] | | | | | | MEDICAL | | | | | | CENTER - | | | | | | LABORATORY | | + + + + + + | Cl | 110 (H) | 98 - 107 mmol/L | [facility] | | | | | | [facility] | | | | | | MEDICAL | | | | | | CENTER - | | | | | | LABORATORY | | + + + + + + | CO2 | 22 | 20 - 31 mmol/L | [facility] | | | | | | [facility] | | | | | | MEDICAL | | | | | | CENTER - | | | | | | LABORATORY | | + + + + + + | Anion Gap | 8 | 3 - 16 mmol/L | [facility] | | | | | | [facility] | | | | | | MEDICAL | | | | | | CENTER - | | | | | | LABORATORY | | + + + + + + | Glucose | 238 (H) | 60 - 106 mg/dL | [facility] | | | | | | [facility] | | | | | | MEDICAL | | | | | | CENTER - | | | | | | LABORATORY | | + + + + + + | BUN | 42 (H) | 9 - 23 mg/dL | [facility] | | | | | | [facility] | | | | | | MEDICAL | | | | | | CENTER - | | | | | | LABORATORY | | + + + + + + | Creatinine | 3.77 (H) | 0.70 - 1.30 | [facility] | | | | | mg/dL | [facility] | | | | | | MEDICAL | | | | | | CENTER - | | | | | | LABORATORY | | + + + + + + | eGFR if not | 19 (L)Comment: | >=60 | [facility] | | | | GLOMERULAR FILTRATION | mL/min/1.73m2 | [facility] | | | [place] | RATE,ESTIMATED | | MEDICAL | | | | mL/min/1.16b5Cffv than | | CENTER - | | | | 60 Chronic kidney | | LABORATORY | | | | disease,if found over a | | | | | | 3-month period.Less than | | | | | | 15 Kidney failureFor | | | | | | | | | | | | Americans,multiply the | | | | | | calculated GFR by 1.21. | | | | | | | | | | + + + + + + | Calcium | 7.3 (L) | 8.7 - 10.4 | [facility] | | | | | mg/dL | [facility] | | | | | | MEDICAL | | | | | | CENTER - | | | | | | LABORATORY | | + + + + + + | Albumin | 2.0 (L) | 3.2 - 4.8 g/dL | [facility] | | | | | | [facility] | | | | | | MEDICAL | | | | | | CENTER - | | | | | | LABORATORY | | + + + + + + | Phosphorus | 6.3 (H) | 2.4 - 5.1 mg/dL | [facility] | | | | | | [facility] | | | | | | MEDICAL | | | | | | CENTER - | | | | | | LABORATORY | | + + + + + + | BUN/Creatin | 11.1 | | [facility] | | | ine Ratio | | | [facility] | | | | | | MEDICAL | | | | | | CENTER - | | | | | | LABORATORY | | + + + + + + + + | Specimen | + + | Blood | + + + + + + + | Performing | Address | City/State/Zipcode | Phone Number | | Organization | | | | + + + + + | [facility] | [address] | [place] | [phone] | | [facility] | | [address] | | | - LABORATORY | | | | + + + + + B Type Natriuretic Peptide (02/19/2020 4:48 AM PDT) + + + + + + | Component | Value | Ref Range | Performed | Pathologist | | | | | At | Signature | + + + + + + | BNP | 229 (H)Comment: New | <100 pg/mL | [facility] | | | | method in use as of | | [facility] | | | | November 22, 2018. Check | | MEDICAL | | | | reference range for | | CENTER - | | | | changes.Some analytes | | LABORATORY | | | | show significant | | | | | | variation from the | | | | | | previous method.It may | | | | | | be necessary to set a | | | | | | new baseline for this | | | | | | analyte. | | | | + + + + + + + + | Specimen | + + | Blood | + + + + + + + | Performing | Address | City/State/Zipcode | Phone Number | | Organization | | | | + + + + + | [facility] | [address] | [place] | [phone] | | [facility] | | [address] | | | - LABORATORY | | | | + + + + + POC Glucose (02/19/2020 1:00 AM PDT) + +---------+ + + + | Component | Value | Ref Range | Performed | Pathologist | | | | | At | Signature | + +---------+ + + + | Glucose, | 231 (H) | 70 - 109 mg/dL | [facility] | | | POC | | | [facility] | | | | | | MEDICAL | | | | | | CENTER - | | | | | | LABORATORY | | + +---------+ + + + + + | Specimen | + + | Blood | + + + + + + + | Performing | Address | City/State/Zipcode | Phone Number | | Organization | | | | + + + + + | [facility] | [address] | [place] | [phone] | | [facility] | | [address] | | | - LABORATORY | | | | + + + + + POC Glucose (02/18/2020 9:42 PM PDT) + +---------+ + + + | Component | Value | Ref Range | Performed | Pathologist | | | | | At | Signature | + +---------+ + + + | Glucose, | 253 (H) | 70 - 109 mg/dL | [facility] | | | POC | | | [facility] | | | | | | MEDICAL | | | | | | CENTER - | | | | | | LABORATORY | | + +---------+ + + + + + | Specimen | + + | Blood | + + + + + + + | Performing | Address | City/State/Zipcode | Phone Number | | Organization | | | | + + + + + | [facility] | [address] | [place] | [phone] | | [facility] | | [address] | | | - LABORATORY | | | | + + + + + POC Glucose (02/18/2020 5:15 PM PDT) + +---------+ + + + | Component | Value | Ref Range | Performed | Pathologist | | | | | At | Signature | + +---------+ + + + | Glucose, | 166 (H) | 70 - 109 mg/dL | [facility] | | | POC | | | [facility] | | | | | | MEDICAL | | | | | | CENTER - | | | | | | LABORATORY | | + +---------+ + + + + + | Specimen | + + | Blood | + + + + + + + | Performing | Address | City/State/Zipcode | Phone Number | | Organization | | | | + + + + + | [facility] | [address] | [place] | [phone] | | [facility] | | [address] | | | - LABORATORY | | | | + + + + + Hemoglobin and Hematocrit (02/18/2020 1:57 PM PDT) + + + + + + | Component | Value | Ref Range | Performed | Pathologist | | | | | At | Signature | + + + + + + | Hematocrit | 29.0 (L) | 40.0 - 51.0 % | [facility] | | | | | | [facility] | | | | | | MEDICAL | | | | | | CENTER - | | | | | | LABORATORY | | + + + + + + | Hemoglobin | 9.3 (L) | 13.5 - 18.0 | [facility] | | | | | g/dL | [facility] | | | | | | MEDICAL | | | | | | CENTER - | | | | | | LABORATORY | | + + + + + + + + | Specimen | + + | Blood | + + + + + + + | Performing | Address | City/State/Zipcode | Phone Number | | Organization | | | | + + + + + | [facility] | [address] | [place] | [phone] | | [facility] | | [address] | | | - LABORATORY | | | | + + + + + POC Glucose (02/18/2020 12:02 PM PDT) + +---------+ + + + | Component | Value | Ref Range | Performed | Pathologist | | | | | At | Signature | + +---------+ + + + | Glucose, | 117 (H) | 70 - 109 mg/dL | [facility] | | | POC | | | [facility] | | | | | | MEDICAL | | | | | | CENTER - | | | | | | LABORATORY | | + +---------+ + + + + + | Specimen | + + | Blood | + + + + + + + | Performing | Address | City/State/Zipcode | Phone Number | | Organization | | | | + + + + + | [facility] | [address] | [place] | [phone] | | [facility] | | [address] | | | - LABORATORY | | | | + + + + + POC Glucose (02/18/2020 10:49 AM PDT) + +---------+ + + + | Component | Value | Ref Range | Performed | Pathologist | | | | | At | Signature | + +---------+ + + + | Glucose, | 118 (H) | 70 - 109 mg/dL | [facility] | | | POC | | | [facility] | | | | | | MEDICAL | | | | | | CENTER - | | | | | | LABORATORY | | + +---------+ + + + + + | Specimen | + + | Blood | + + + + + + + | Performing | Address | City/State/Zipcode | Phone Number | | Organization | | | | + + + + + | [facility] | [address] | [place] | [phone] | | [facility] | | [address] | | | - LABORATORY | | | | + + + + + POC Glucose (02/18/2020 10:40 AM PDT) + +--------+ + + + | Component | Value | Ref Range | Performed | Pathologist | | | | | At | Signature | + +--------+ + + + | Glucose, | 41 (L) | 70 - 109 mg/dL | [facility] | | | POC | | | [facility] | | | | | | MEDICAL | | | | | | CENTER - | | | | | | LABORATORY | | + +--------+ + + + + + | Specimen | + + | Blood | + + + + + + + | Performing | Address | City/State/Zipcode | Phone Number | | Organization | | | | + + + + + | [facility] | [address] | [place], [place] | [phone] | | [facility] | | [address] | | | - LABORATORY | | | | + + + + + POC Glucose (02/18/2020 10:26 AM PDT) + +---------+ + + + | Component | Value | Ref Range | Performed | Pathologist | | | | | At | Signature | + +---------+ + + + | Glucose, | 34 (LL) | 70 - 109 mg/dL | [facility] | | | POC | | | [facility] | | | | | | MEDICAL | | | | | | CENTER - | | | | | | LABORATORY | | + +---------+ + + + + + | Specimen | + + | Blood | + + + + + + + | Performing | Address | City/State/Zipcode | Phone Number | | Organization | | | | + + + + + | [facility] | [address] | [place] | [phone] | | [facility] | | [address] | | | - LABORATORY | | | | + + + + + Red Blood Cells (PRBC) - Crossmatch (02/18/2020 9:26 AM PDT) + + + + + + | Component | Value | Ref Range | Performed | Pathologist | | | | | At | Signature | + + + + + + | Product | [id number] | | [facility] | | | Code | | | [facility] | | | | | | MEDICAL | | | | | | CENTER - | | | | | | BLOOD BANK | | + + + + + + | UNIT # | [id number] | | [facility] | | | | | | [facility] | | | | | | MEDICAL | | | | | | CENTER - | | | | | | BLOOD BANK | | + + + + + + | UNIT ABO | O | | [facility] | | | | | | [facility] | | | | | | MEDICAL | | | | | | CENTER - | | | | | | BLOOD BANK | | + + + + + + | UNIT RH | POS | | [facility] | | | | | | [facility] | | | | | | MEDICAL | | | | | | CENTER - | | | | | | BLOOD BANK | | + + + + + + | CROSSMATCH | Compatible | | [facility] | | | INTERP | | | [facility] | | | | | | MEDICAL | | | | | | CENTER - | | | | | | BLOOD BANK | | + + + + + + | Unit Status | Issued | | [facility] | | | | | | [facility] | | | | | | MEDICAL | | | | | | CENTER - | | | | | | BLOOD BANK | | + + + + + + | Blood | [id number] | | [facility] | | | Product | | | [facility] | | | Expiration | | | MEDICAL | | | Date and | | | CENTER - | | | Time | | | BLOOD BANK | | + + + + + + | Product | 5100 | | [facility] | | | Blood Type | | | [facility] | | | Barcode | | | [facility] | | | | | | CENTER - | | | | | | BLOOD BANK | | + + + + + + + + | Specimen | + + | | + + + + + + + | Performing | Address | City/State/Zipcode | Phone Number | | Organization | | | | + + + + + | [facility] | [address] | [place] | | | [facility] | | [address] | | | - BLOOD BANK | | | | + + + + + Red Blood Cells (PRBC) - Crossmatch (02/18/2020 7:26 AM PDT) + + + + + + | Component | Value | Ref Range | Performed | Pathologist | | | | | At | Signature | + + + + + + | Product | [id number] | | [facility] | | | Code | | | [facility] | | | | | | [facility]ICAL | | | | | | CENTER - | | | | | | BLOOD BANK | | + + + + + + | UNIT # | [id number] | | [facility] | | | | | | [facility] | | | | | | [facility]ICAL | | | | | | CENTER - | | | | | | BLOOD BANK | | + + + + + + | UNIT ABO | O | | [facility] | [facility] | | | | | | MEDICAL | | | | | | CENTER - | | | | | | BLOOD BANK | | + + + + + + | UNIT RH | POS | | [facility] | | | | | | [facility] | | | | | | [facility] | | | | | | CENTER - | | | | | | BLOOD BANK | | + + + + + + | CROSSMATCH | Compatible | | [facility] | | | INTERP | | | [facility] | | | | | | MEDICAL | | | | | | CENTER - | | | | | | BLOOD BANK | | + + + + + + | Unit Status | Issued | | [facility] | | | | | | [facility] | | | | | | [facility] | | | | | | CENTER - | | | | | | BLOOD BANK | | + + + + + + | Blood | [phone] | | [facility] | | | Product | | | [facility] | | | Expiration | | | MEDICAL | | | Date and | | | CENTER - | | | Time | | | BLOOD BANK | | + + + + + + | Product | 5100 | | [facility] | | | Blood Type | | | [facility] | | | Barcode | | | MEDICAL | | | | | | CENTER - | | | | | | BLOOD BANK | | + + + + + + + + | Specimen | + + | | + + + + + + + | Performing | Address | City/State/Zipcode | Phone Number | | Organization | | | | + + + + + | [facility] | [address] | [place] | | | [facility] | | [address] | | | - BLOOD BANK | | | | + + + + + POC Glucose (02/18/2020 7:08 AM PDT) + +-------+ + + + | Component | Value | Ref Range | Performed | Pathologist | | | | | At | Signature | + +-------+ + + + | Glucose, | 89 | 70 - 109 mg/dL | [facility] | | | POC | | | [facility] | | | | | | [facility] | | | | | | CENTER - | | | | | | LABORATORY | | + +-------+ + + + + + | Specimen | + + | Blood | + + + + + + + | Performing | Address | City/State/Zipcode | Phone Number | | Organization | | | | + + + + + | [facility] | [address] | [place] | [phone] | | [facility] | | [address] | | | - LABORATORY | | | | + + + + + POC Glucose (02/18/2020 6:46 AM PDT) + +--------+ + + + | Component | Value | Ref Range | Performed | Pathologist | | | | | At | Signature | + +--------+ + + + | Glucose, | 47 (L) | 70 - 109 mg/dL | [facility] | | | POC | | | [facility] | | | | | | [facility] | | | | | | CENTER - | | | | | | LABORATORY | | + +--------+ + + + + + | Specimen | + + | Blood | + + + + + + + | Performing | Address | City/State/Zipcode | Phone Number | | Organization | | | | + + + + + | [facility] | [address] | [place] | [phone] | | [facility] | | [address] | | | - LABORATORY | | | | + + + + + C-Reactive Protein (02/18/2020 5:23 AM PDT) + + + + + + | Component | Value | Ref Range | Performed | Pathologist | | | | | At | Signature | + + + + + + | CRP | 66.40 (H) | <10.00 mg/L | [facility] | [facility] | | | | | | C[facility] - | | | | | | LABORATORY | | + + + + + + + + | Specimen | + + | Blood | + + + + + + + | Performing | Address | City/State/Zipcode | Phone Number | | Organization | | | | + + + + + | [facility] | [address] | [place] | [phone] | | [facility] | | [address] | | | - LABORATORY | | | | + + + + + B Type Natriuretic Peptide (02/18/2020 5:23 AM PDT) + + + + + + | Component | Value | Ref Range | Performed | Pathologist | | | | | At | Signature | + + + + + + | BNP | 223 (H)Comment: New | <100 pg/mL | [facility] | | | | method in use as of | | [facility] | | | | November 22, 2018. Check | | MEDICAL | | | | reference range for | | CENTER - | | | | changes.Some analytes | | LABORATORY | | | | show significant | | | | | | variation from the | | | | | | previous method.It may | | | | | | be necessary to set a | | | | | | new baseline for this | | | | | | analyte. | | | | + + + + + + + + | Specimen | + + | Blood | + + + + + + + | Performing | Address | City/State/Zipcode | Phone Number | | Organization | | | | + + + + + | [facility] | [address] | [place] | [phone] | | [facility] | | [address] | | | - LABORATORY | | | | + + + + + CBC with Differential (02/18/2020 5:23 AM PDT) + + + + + + | Component | Value | Ref Range | Performed | Pathologist | | | | | At | Signature | + + + + + + | WBC | 16.1 (H) | 4.0 - 11.0 K/uL | [facility] | | | | | | [facility] | | | | | | MEDICAL | | | | | | CENTER - | | | | | | LABORATORY | | + + + + + + | RBC | 1.91 (L) | 4.30 - 5.70 | [facility] | | | | | M/uL | [facility] | | | | | | MEDICAL | | | | | | CENTER - | | | | | | LABORATORY | | + + + + + + | Hemoglobin | 5.7 (LL)Comment: | 13.5 - 18.0 | [facility] | | | | Critical Result called | g/dL | [facility] | | | | to and read back by | | MEDICAL | | | | Belinda De Leon RN on | | CENTER - | | | | 02/18/2020 at 5:38 AM by | | LABORATORY | | | | Sonali Bejarano. | | | | + + + + + + | Hematocrit | 18.0 (LL)Comment: | 40.0 - 51.0 % | [facility] | | | | Critical Result called | | [facility] | | | | to and read back by | | MEDICAL | | | | Belinda De Leon RN on | | CENTER - | | | | 02/18/2020 at 5:38 AM by | | LABORATORY | | | | Sonali Bejarano. | | | | + + + + + + | MCV | 94.2 | 83.0 - 101.0 fL | [facility] | | | | | | [facility] | | | | | | MEDICAL | | | | | | CENTER - | | | | | | LABORATORY | | + + + + + + | MCH | 29.8 | 28.0 - 35.0 pg | [facility] | | | | | | [facility] | | | | | | MEDICAL | | | | | | CENTER - | | | | | | LABORATORY | | + + + + + + | MCHC | 31.7 (L) | 32.0 - 36.0 | [facility] | | | | | g/dL | [facility] | | | | | | MEDICAL | | | | | | CENTER - | | | | | | LABORATORY | | + + + + + + | RDW-CV | 15.1 (H) | <15.0 % | [facility] | | | | | | [facility] | | | | | | MEDICAL | | | | | | CENTER - | | | | | | LABORATORY | | + + + + + + | RDW-SD | 52.6 (H) | 35.1 - 46.3 fL | [facility] | | | | | | [facility] | | | | | | MEDICAL | | | | | | CENTER - | | | | | | LABORATORY | | + + + + + + | Platelet | 347 | 140 - 440 K/uL | [facility] | | | Count | | | [facility] | | | | | | MEDICAL | | | | | | CENTER - | | | | | | LABORATORY | | + + + + + + | MPV | 12.3 | 6.5 - 12.4 fL | [facility] | | | | | | [facility] | | | | | | MEDICAL | | | | | | CENTER - | | | | | | LABORATORY | | + + + + + + | % | 71.1 | 45.0 - 82.0 % | [facility] | | | Neutrophils | | | [facility] | | | | | | MEDICAL | | | | | | CENTER - | | | | | | LABORATORY | | + + + + + + | % | 18.2 (L) | 20.0 - 45.0 % | [facility] | | | Lymphocytes | | | [facility] | | | | | | MEDICAL | | | | | | CENTER - | | | | | | LABORATORY | | + + + + + + | % Monocytes | 7.4 | 4.0 - 12.0 % | [facility] | | | | | | [facility] | | | | | | MEDICAL | | | | | | CENTER - | | | | | | LABORATORY | | + + + + + + | % | 2.2 | 0.0 - 5.0 % | [facility] | | | Eosinophils | | | [facility] | | | | | | MEDICAL | | | | | | CENTER - | | | | | | LABORATORY | | + + + + + + | % Basophils | 0.7 | 0.0 - 1.0 % | [facility] | | | | | | [facility] | | | | | | MEDICAL | | | | | | CENTER - | | | | | | LABORATORY | | + + + + + + | % Immature | 0.4 | 0.0 - 0.4 % | [facility] | | | Granulocyte | | | [facility] | | | s | | | MEDICAL | | | | | | CENTER - | | | | | | LABORATORY | | + + + + + + | Absolute | 11.45 (H) | 1.80 - 8.50 | [facility] | | | Neutrophils | | K/uL | [facility] | | | | | | MEDICAL | | | | | | CENTER - | | | | | | LABORATORY | | + + + + + + | Absolute | 2.94 | 0.60 - 3.20 | [facility] | | | Lymphocytes | | K/uL | [facility] | | | | | | MEDICAL | | | | | | CENTER - | | | | | | LABORATORY | | + + + + + + | Absolute | 1.20 (H) | 0.00 - 1.00 | [facility] | | | Monocytes | | K/uL | [facility] | | | | | | MEDICAL | | | | | | CENTER - | | | | | | LABORATORY | | + + + + + + | Absolute | 0.35 | 0.00 - 0.40 | [facility] | | | Eosinophils | | K/uL | [facility] | | | | | | MEDICAL | | | | | | CENTER - | | | | | | LABORATORY | | + + + + + + | Absolute | 0.12 (H) | 0.00 - 0.10 | [facility] | | | Basophils | | K/uL | [facility] | | | | | | MEDICAL | | | | | | CENTER - | | | | | | LABORATORY | | + + + + + + | Absolute | 0.07 (H) | 0.00 - 0.03 | [facility] | | | Immature | | K/uL | [facility] | | | Granulocyte | | | MEDICAL | | | s | | | CENTER - | | | | | | LABORATORY | | + + + + + + | % nRBC | 0 | 0 - 2 per 100 | [facility] | | | | | WBCs | [facility] | | | | | | MEDICAL | | | | | | CENTER - | | | | | | LABORATORY | | + + + + + + | Absolute | 0.00 | 0.00 - 0.01 | [facility] | | | nRBC | | K/uL | [facility] | | | | | | MEDICAL | | | | | | CENTER - | | | | | | LABORATORY | | + + + + + + + + | Specimen | + + | Blood | + + + + + + + | Performing | Address | City/State/Zipcode | Phone Number | | Organization | | | | + + + + + | [facility] | [address] | [place] | [phone] | | [facility] | | [address] | | | - LABORATORY | | | | + + + + + Renal Function Panel (02/18/2020 5:23 AM PDT) + + + + + + | Component | Value | Ref Range | Performed | Pathologist | | | | | At | Signature | + + + + + + | Na | 144 | 136 - 145 | [facility] | | | | | mmol/L | [facility] | | | | | | MEDICAL | | | | | | CENTER - | | | | | | LABORATORY | | + + + + + + | K | 3.9 | 3.4 - 5.1 | [facility] | | | | | mmol/L | [facility] | | | | | | MEDICAL | | | | | | CENTER - | | | | | | LABORATORY | | + + + + + + | Cl | 114 (H) | 98 - 107 mmol/L | [facility] | | | | | | [facility] | | | | | | MEDICAL | | | | | | CENTER - | | | | | | LABORATORY | | + + + + + + | CO2 | 22 | 20 - 31 mmol/L | [facility] | | | | | | [facility] | | | | | | MEDICAL | | | | | | CENTER - | | | | | | LABORATORY | | + + + + + + | Anion Gap | 8 | 3 - 16 mmol/L | [facility] | | | | | | [facility] | | | | | | MEDICAL | | | | | | CENTER - | | | | | | LABORATORY | | + + + + + + | Glucose | 71 | 60 - 106 mg/dL | [facility] | | | | | | [facility] | | | | | | MEDICAL | | | | | | CENTER - | | | | | | LABORATORY | | + + + + + + | BUN | 43 (H) | 9 - 23 mg/dL | [facility] | | | | | | [facility] | | | | | | MEDICAL | | | | | | CENTER - | | | | | | LABORATORY | | + + + + + + | Creatinine | 3.83 (H) | 0.70 - 1.30 | [facility] | | | | | mg/dL | [facility] | | | | | | MEDICAL | | | | | | CENTER - | | | | | | LABORATORY | | + + + + + + | eGFR if not | 19 (L)Comment: | >=60 | [facility] | | | | GLOMERULAR FILTRATION | mL/min/1.73m2 | [facility] | | | [place] | RATE,ESTIMATED | | MEDICAL | | | | mL/min/1.50d7Lfln than | | CENTER - | | | | 60 Chronic kidney | | LABORATORY | | | | disease,if found over a | | | | | | 3-month period.Less than | | | | | | 15 Kidney failureFor | | | | | | | | | | | | Americans,multiply the | | | | | | calculated GFR by 1.21. | | | | | | | | | | + + + + + + | Calcium | 6.9 (L) | 8.7 - 10.4 | [facility] | | | | | mg/dL | [facility] | | | | | | MEDICAL | | | | | | CENTER - | | | | | | LABORATORY | | + + + + + + | Albumin | 1.9 (L) | 3.2 - 4.8 g/dL | [facility] | | | | | | [facility] | | | | | | MEDICAL | | | | | | CENTER - | | | | | | LABORATORY | | + + + + + + | Phosphorus | 5.7 (H) | 2.4 - 5.1 mg/dL | [facility] | | | | | | [facility] | | | | | | MEDICAL | | | | | | CENTER - | | | | | | LABORATORY | | + + + + + + | BUN/Creatin | 11.2 | | [facility] | | | ine Ratio | | | [facility] | | | | | | MEDICAL | | | | | | CENTER - | | | | | | LABORATORY | | + + + + + + + + | Specimen | + + | Blood | + + + + + + + | Performing | Address | City/State/Zipcode | Phone Number | | Organization | | | | + + + + + | [facility] | [address] | [place] | [phone] | | [facility] | | [address] | | | - LABORATORY | | | | + + + + + Protime INR (02/18/2020 5:23 AM PDT) + + + + + + | Component | Value | Ref Range | Performed | Pathologist | | | | | At | Signature | + + + + + + | Prothrombin | 17.2 (H) | 11.3 - 13.9 | [facility] | | | Time | | seconds | [facility] | | | | | | MEDICAL | | | | | | CENTER - | | | | | | LABORATORY | | + + + + + + | INR | 1.3 (H)Comment: Usual | 0.9 - 1.1 | [facility] | | | | Oral Anticoagulation | | [facility] | | | | Range: 2.0 - | | MEDICAL | | | | 3.0High Level Oral | | CENTER - | | | | Anticoagulation Range: | | LABORATORY | | | | 2.5 - 3.5 | | | | + + + + + + + + | Specimen | + + | Blood | + + + + + + + | Performing | Address | City/State/Zipcode | Phone Number | | Organization | | | | + + + + + | [facility] | [address] | [place] | [phone] | | [facility] | | [address] | | | - LABORATORY | | | | + + + + + Sedimentation Rate (02/18/2020 5:23 AM PDT) + +--------+ + + + | Component | Value | Ref Range | Performed | Pathologist | | | | | At | Signature | + +--------+ + + + | Erythrocyte | 28 (H) | <15 mm/hr | [facility] | | | | | | [facility] | | | Sedimentati | | | MEDICAL | | | on Rate | | | CENTER - | | | | | | LABORATORY | | + +--------+ + + + + + | Specimen | + + | Blood | + + + + + + + | Performing | Address | City/State/Zipcode | Phone Number | | Organization | | | | + + + + + | [facility] | [address] | [place] | [phone] | | [facility] | | [address] | | | - LABORATORY | | | | + + + + + POC Glucose (02/17/2020 8:54 PM PDT) + +---------+ + + + | Component | Value | Ref Range | Performed | Pathologist | | | | | At | Signature | + +---------+ + + + | Glucose, | 224 (H) | 70 - 109 mg/dL | [facility] | | | POC | | | [facility] | | | | | | MEDICAL | | | | | | CENTER - | | | | | | LABORATORY | | + +---------+ + + + + + | Specimen | + + | Blood | + + + + + + + | Performing | Address | City/State/Zipcode | Phone Number | | Organization | | | | + + + + + | [facility] | [address] | [place] | [phone] | | [facility] | | [address] | | | - LABORATORY | | | | + + + + + Basic Metabolic Panel (02/17/2020 6:55 PM PDT) + + + + + + | Component | Value | Ref Range | Performed | Pathologist | | | | | At | Signature | + + + + + + | Na | 142 | 136 - 145 | [facility] | | | | | mmol/L | [facility] | | | | | | MEDICAL | | | | | | CENTER - | | | | | | LABORATORY | | + + + + + + | K | 4.0 | 3.4 - 5.1 | [facility] | | | | | mmol/L | [facility] | | | | | | MEDICAL | | | | | | CENTER - | | | | | | LABORATORY | | + + + + + + | Cl | 113 (H) | 98 - 107 mmol/L | [facility] | | | | | | [facility] | | | | | | MEDICAL | | | | | | CENTER - | | | | | | LABORATORY | | + + + + + + | CO2 | 21 | 20 - 31 mmol/L | [facility] | | | | | | [facility] | | | | | | MEDICAL | | | | | | CENTER - | | | | | | LABORATORY | | + + + + + + | Anion Gap | 8 | 3 - 16 mmol/L | [facility] | | | | | | [facility] | | | | | | MEDICAL | | | | | | CENTER - | | | | | | LABORATORY | | + + + + + + | Glucose | 221 (H) | 60 - 106 mg/dL | [facility] | | | | | | [facility] | | | | | | MEDICAL | | | | | | CENTER - | | | | | | LABORATORY | | + + + + + + | BUN | 45 (H) | 9 - 23 mg/dL | [facility] | | | | | | [facility] | | | | | | MEDICAL | | | | | | CENTER - | | | | | | LABORATORY | | + + + + + + | Creatinine | 3.98 (H) | 0.70 - 1.30 | [facility] | | | | | mg/dL | [facility] | | | | | | MEDICAL | | | | | | CENTER - | | | | | | LABORATORY | | + + + + + + | eGFR if not | 18 (L)Comment: | >=60 | [facility] | | | | GLOMERULAR FILTRATION | mL/min/1.73m2 | [facility] | | | [place] | RATE,ESTIMATED | | MEDICAL | | | | mL/min/1.90f8Wlaa than | | CENTER - | | | | 60 Chronic kidney | | LABORATORY | | | | disease,if found over a | | | | | | 3-month period.Less than | | | | | | 15 Kidney failureFor | | | | | | | | | | | | Americans,multiply the | | | | | | calculated GFR by 1.21. | | | | | | | | | | + + + + + + | Calcium | 7.1 (L) | 8.7 - 10.4 | [facility] | | | | | mg/dL | [facility] | | | | | | MEDICAL | | | | | | CENTER - | | | | | | LABORATORY | | + + + + + + | BUN/Creatin | 11.3 | | [facility] | | | ine Ratio | | | [facility] | | | | | | MEDICAL | | | | | | CENTER - | | | | | | LABORATORY | | + + + + + + + + | Specimen | + + | Blood | + + + + + + + | Performing | Address | City/State/Zipcode | Phone Number | | Organization | | | | + + + + + | [facility] | [address] | [place] | [phone] | | [facility] | | [address] | | | - LABORATORY | | | | + + + + + POC Glucose (02/17/2020 5:16 PM PDT) + +---------+ + + + | Component | Value | Ref Range | Performed | Pathologist | | | | | At | Signature | + +---------+ + + + | Glucose, | 207 (H) | 70 - 109 mg/dL | [facility] | | | POC | | | [facility] | | | | | | MEDICAL | | | | | | CENTER - | | | | | | LABORATORY | | + +---------+ + + + + + | Specimen | + + | Blood | + + + + + + + | Performing | Address | City/State/Zipcode | Phone Number | | Organization | | | | + + + + + | [facility] | [address] | [place] | [phone] | | [facility] | | [address] | | | - LABORATORY | | | | + + + + + POC Glucose (02/17/2020 11:45 AM PDT) + +---------+ + + + | Component | Value | Ref Range | Performed | Pathologist | | | | | At | Signature | + +---------+ + + + | Glucose, | 218 (H) | 70 - 109 mg/dL | [facility] | | | POC | | | [facility] | | | | | | MEDICAL | | | | | | CENTER - | | | | | | LABORATORY | | + +---------+ + + + + + | Specimen | + + | Blood | + + + + + + + | Performing | Address | City/State/Zipcode | Phone Number | | Organization | | | | + + + + + | [facility] | [address] | [place], [place] | [phone] | | [facility] | | [address] | | | - LABORATORY | | | | + + + + + Culture, Anaerobic (02/17/2020 11:05 AM PDT) + + + + + + | Component | Value | Ref Range | Performed | Pathologist | | | | | At | Signature | + + + + + + | Culture | No anaerobes isolated. | | [facility] | | | | | | [facility] | | | | | | MEDICAL | | | | | | CENTER - | | | | | | LABORATORY | | + + + + + + + + | Specimen | + + | Tissue - Pus | | specimen (specimen) | + + + + + + + | Performing | Address | City/State/Zipcode | Phone Number | | Organization | | | | + + + + + | [facility] | [address] | [place] | [phone] | | [facility] | | [address] | | | - LABORATORY | | | | + + + + + Culture, Wound, Smear (02/17/2020 11:05 AM PDT) + + + + + + | Component | Value | Ref Range | Performed | Pathologist | | | | | At | Signature | + + + + + + | Culture | 1+ Staphylococcus | | [facility] | | | | epidermidis | | [facility] | | | | | | MEDICAL | | | | | | CENTER - | | | | | | LABORATORY | | + + + + + + | Culture | 1+ Serratia | | [facility] | | | | marcescensComment: | | [facility] | | | | Consider combination | | MEDICAL | | | | therapy for serious | | CENTER - | | | | infections. | | LABORATORY | | + + + + + + | Gram Stain | 2+ White Blood Cells | | [facility] | | | Result | | | [facility] | | | | | | MEDICAL | | | | | | CENTER - | | | | | | LABORATORY | | + + + + + + | Gram Stain | No organisms seen | | [facility] | | | Result | | | [facility] | | | | | | MEDICAL | | | | | | CENTER - | | | | | | LABORATORY | | + + + + + + + + | Specimen | + + | Tissue - Pus | | specimen (specimen) | + + + + +--------+ + | Organism | Antibiotic | Method | Susceptibility | + + +--------+ + | Staphylococcus | Ciprofloxacin | | <=0.5 ug/mL: | | epidermidis | | | Sensitive | + + +--------+ + | Staphylococcus | Clindamycin | | >=4 ug/mL: | | epidermidis | | | Resistant | + + +--------+ + | Staphylococcus | Erythromycin | | >=8 ug/mL: | | epidermidis | | | Resistant | + + +--------+ + | Staphylococcus | Gentamicin | | <=0.5 ug/mL: | | epidermidis | | | Sensitive | + + +--------+ + | Staphylococcus | Levofloxacin | | <=0.12 ug/mL: | | epidermidis | | | Sensitive | + + +--------+ + | Staphylococcus | Linezolid | | 1 ug/mL: Sensitive | | epidermidis | | | | + + +--------+ + | Staphylococcus | Moxifloxacin | | <=0.25 ug/mL: | | epidermidis | | | Sensitive | + + +--------+ + | Staphylococcus | Oxacillin | | >=4 ug/mL: | | epidermidis | | | Resistant | + + +--------+ + | Staphylococcus | Penicillin G | | >=0.5 ug/mL: | | epidermidis | | | Resistant | + + +--------+ + | Staphylococcus | Rifampin | | <=0.5 ug/mL: | | epidermidis | | | Sensitive | + + +--------+ + | Staphylococcus | Tetracycline | | >=16 ug/mL: | | epidermidis | | | Resistant | + + +--------+ + | Staphylococcus | Trimethoprim + | | 160 ug/mL: | | epidermidis | Sulfamethoxazole | | Resistant | + + +--------+ + | Staphylococcus | Vancomycin | | 1 ug/mL: Sensitive | | epidermidis | | | | + + +--------+ + | Serratia marcescens | Cefazolin | | >=64 ug/mL: | | | | | Resistant | + + +--------+ + | Serratia marcescens | Cefepime | | <=1 ug/mL: | | | | | Sensitive | + + +--------+ + | Serratia marcescens | Cefoxitin | | Resistant | + + +--------+ + | Serratia marcescens | Ceftazidime | | <=1 ug/mL: | | | | | Sensitive | + + +--------+ + | Serratia marcescens | Ceftriaxone | | <=1 ug/mL: | | | | | Sensitive | + + +--------+ + | Serratia marcescens | Ciprofloxacin | | <=0.25 ug/mL: | | | | | Sensitive | + + +--------+ + | Serratia marcescens | Ertapenem | | <=0.5 ug/mL: | | | | | Sensitive | + + +--------+ + | Serratia marcescens | Gentamicin | | <=1 ug/mL: | | | | | Sensitive | + + +--------+ + | Serratia marcescens | Meropenem | | <=0.25 ug/mL: | | | | | Sensitive | + + +--------+ + | Serratia marcescens | Tobramycin | | <=1 ug/mL: | | | | | Sensitive | + + +--------+ + | Serratia marcescens | Trimethoprim + | | <=20 ug/mL: | | | Sulfamethoxazole | | Sensitive | + + +--------+ + + + + + + | Performing | Address | City/State/Zipcode | Phone Number | | Organization | | | | + + + + + | [facility] | [address] | [place] | [phone] | | [facility] | | [address] | | | - LABORATORY | | | | + + + + + POC Glucose (02/17/2020 6:35 AM PDT) + +-------+ + + + | Component | Value | Ref Range | Performed | Pathologist | | | | | At | Signature | + +-------+ + + + | Glucose, | 95 | 70 - 109 mg/dL | [facility] | | | POC | | | [facility] | | | | | | MEDICAL | | | | | | CENTER - | | | | | | LABORATORY | | + +-------+ + + + + + | Specimen | + + | Blood | + + + + + + + | Performing | Address | City/State/Zipcode | Phone Number | | Organization | | | | + + + + + | [facility] | [address] | [place] | [phone] | | [facility] | | [address] | | | - LABORATORY | | | | + + + + + C-Reactive Protein (02/17/2020 4:32 AM PDT) + + + + + + | Component | Value | Ref Range | Performed | Pathologist | | | | | At | Signature | + + + + + + | CRP | 70.20 (H) | <10.00 mg/L | [facility] | | | | | | [facility] | | | | | | MEDICAL | | | | | | CENTER - | | | | | | LABORATORY | | + + + + + + + + | Specimen | + + | Blood | + + + + + + + | Performing | Address | City/State/Zipcode | Phone Number | | Organization | | | | + + + + + | [facility] | [address] | [place] | [phone] | | [facility] | | [address] | | | - LABORATORY | | | | + + + + + Renal Function Panel (02/17/2020 4:32 AM PDT) + + + + + + | Component | Value | Ref Range | Performed | Pathologist | | | | | At | Signature | + + + + + + | Na | 147 (H) | 136 - 145 | [facility] | | | | | mmol/L | [facility] | | | | | | [facility] | | | | | | CENTER - | | | | | | LABORATORY | | + + + + + + | K | 4.7 | 3.4 - 5.1 | [facility] | | | | | mmol/L | [facility] | | | | | | [facility] | | | | | | CENTER - | | | | | | LABORATORY | | + + + + + + | Cl | 119 (H) | 98 - 107 mmol/L | [facility] | | | | | | [facility] | | | | | | [facility] | | | | | | CENTER - | | | | | | LABORATORY | | + + + + + + | CO2 | 18 (L) | 20 - 31 mmol/L | [facility] | | | | | | [facility] | | | | | | [facility] | | | | | | C[facility] - | | | | | | LABORATORY | | + + + + + + | Anion Gap | 10 | 3 - 16 mmol/L | [facility] | | | | | | [facility] | | | | | | [facility] | | | | | | C[facility] - | | | | | | LABORATORY | | + + + + + + | Glucose | 76 | 60 - 106 mg/dL | [facility] | | | | | | [facility] | | | | | | [facility] | | | | | | [facility] - | | | | | | LABORATORY | | + + + + + + | BUN | 42 (H) | 9 - 23 mg/dL | [facility] | | | | | | [facility] | | | | | | [facility] | | | | | | [facility] - | | | | | | LABORATORY | | + + + + + + | Creatinine | 3.92 (H) | 0.70 - 1.30 | [facility] | | | | | mg/dL | [facility] | | | | | | MEDICAL | | | | | | CENTER - | | | | | | LABORATORY | | + + + + + + | eGFR if not | 18 (L)Comment: | >=60 | [facility] | | | | GLOMERULAR FILTRATION | mL/min/1.73m2 | [facility] | | | [place] | RATE,ESTIMATED | | MEDICAL | | | | mL/min/1.24j3Cvqa than | | CENTER - | | | | 60 Chronic kidney | | LABORATORY | | | | disease,if found over a | | | | | | 3-month period.Less than | | | | | | 15 Kidney failureFor | | | | | | | | | | | | Americans,multiply the | | | | | | calculated GFR by 1.21. | | | | | | | | | | + + + + + + | Calcium | 7.7 (L) | 8.7 - 10.4 | [facility] | | | | | mg/dL | [facility] | | | | | | MEDICAL | | | | | | CENTER - | | | | | | LABORATORY | | + + + + + + | Albumin | 2.2 (L) | 3.2 - 4.8 g/dL | [facility] | | | | | | [facility] | | | | | | [facility] | | | | | | C[facility] - | | | | | | LABORATORY | | + + + + + + | Phosphorus | 6.4 (H) | 2.4 - 5.1 mg/dL | [facility] | | | | | | [facility] | | | [facility] | | [facility] | | | | | | CENTER - | | | | | | LABORATORY | | + + + + + + | BUN/Creatin | 10.7 | | [facility] | | | ine Ratio | | | [facility] | | | | | | [facility] | | | | | | CENTER - | | | | | | LABORATORY | | + + + + + + + + | Specimen | + + | Blood | + + + + + + + | Performing | Address | City/State/Zipcode | Phone Number | | Organization | | | | + + + + + | [facility] | [address] | [place], [place] | [phone] | | [facility] | | [address] | | | - LABORATORY | | | | + + + + + B Type Natriuretic Peptide (02/17/2020 4:32 AM PDT) + + + + + + | Component | Value | Ref Range | Performed | Pathologist | | | | | At | Signature | + + + + + + | BNP | 154 (H)Comment: New | <100 pg/mL | [facility] | | | | method in use as of | | [facility] | | | | November 22, 2018. Check | | MEDICAL | | | | reference range for | | CENTER - | | | | changes.Some analytes | | LABORATORY | | | | show significant | | | | | | variation from the | | | | | | previous method.It may | | | | | | be necessary to set a | | | | | | new baseline for this | | | | | | analyte. | | | | + + + + + + + + | Specimen | + + | Blood | + + + + + + + | Performing | Address | City/State/Zipcode | Phone Number | | Organization | | | | + + + + + | [facility] | [address] | [place] | [phone] | | [facility] | | [address] | | | - LABORATORY | | | | + + + + + CBC with Differential (02/17/2020 4:31 AM PDT) + + + + + + | Component | Value | Ref Range | Performed | Pathologist | | | | | At | Signature | + + + + + + | WBC | 18.8 (H) | 4.0 - 11.0 K/uL | [facility] | | | | | | [facility] | | | | | | MEDICAL | | | | | | CENTER - | | | | | | LABORATORY | | + + + + + + | RBC | 2.88 (L) | 4.30 - 5.70 | [facility] | | | | | M/uL | [facility] | | | | | | [facility] | | | | | | CENTER - | | | | | | LABORATORY | | + + + + + + | Hemoglobin | 8.6 (L) | 13.5 - 18.0 | [facility] | | | | | g/dL | [facility] | | | | | | [facility] | | | | | | CENTER - | | | | | | LABORATORY | | + + + + + + | Hematocrit | 27.4 (L) | 40.0 - 51.0 % | [facility] | | | | | | [facility] | | | | | | [facility] | | | | | | CENTER - | | | | | | LABORATORY | | + + + + + + | MCV | 95.1 | 83.0 - 101.0 fL | [facility] | | | | | | [facility] | | | | | | [facility] | | | | | | CENTER - | | | | | | LABORATORY | | + + + + + + | MCH | 29.9 | 28.0 - 35.0 pg | [facility] | | | | | | [facility] | | | | | | [facility] | | | | | | CENTER - | | | | | | LABORATORY | | + + + + + + | MCHC | 31.4 (L) | 32.0 - 36.0 | [facility] | | | | | g/dL | [facility] | | | | | | MEDICAL | | | | | | CENTER - | | | | | | LABORATORY | | + + + + + + | RDW-CV | 15.2 (H) | <15.0 % | [facility] | | | | | | [facility] | | | | | | [facility] | | | | | | CENTER - | | | | | | LABORATORY | | + + + + + + | RDW-SD | 52.9 (H) | 35.1 - 46.3 fL | [facility] | | | | | | [facility] | | | | | | [facility] | | | | | | CENTER - | | | | | | LABORATORY | | + + + + + + | Platelet | 393 | 140 - 440 K/uL | [facility] | | | Count | | | [facility] | | | [facility] | | [facility] | | | | | | CENTER - | | | | | | LABORATORY | | + + + + + + | MPV | 12.2 | 6.5 - 12.4 fL | [facility] | | | | | | [facility] | | | | | | [facility]ICAL | | | | | | CENTER - | | | | | | LABORATORY | | + + + + + + | % | 78.0 | 45.0 - 82.0 % | [facility] | | | Neutrophils | | | [facility] | | | | | | MEDICAL | | | | | | CENTER - | | | | | | LABORATORY | | + + + + + + | % | 12.3 (L) | 20.0 - 45.0 % | [facility] | | | Lymphocytes | | | [facility] | | | | | | MEDICAL | | | | | | CENTER - | | | | | | LABORATORY | | + + + + + + | % Monocytes | 6.2 | 4.0 - 12.0 % | [facility] | | | | | | [facility] | | | | | | MEDICAL | | | | | | CENTER - | | | | | | LABORATORY | | + + + + + + | % | 1.9 | 0.0 - 5.0 % | [facility] | | | Eosinophils | | | [facility] | | | | | | MEDICAL | | | | | | CENTER - | | | | | | LABORATORY | | + + + + + + | % Basophils | 0.9 | 0.0 - 1.0 % | [facility] | | | | | | [facility] | | | | | | MEDICAL | | | | | | CENTER - | | | | | | LABORATORY | | + + + + + + | % Immature | 0.7 (H)Comment: | 0.0 - 0.4 % | [facility] | | | Granulocyte | Preliminary studies have | | [facility] | | | s | indicated the IG% | | MEDICAL | | | | and/or IG# show promise | | CENTER - | | | | as an early indicator | | LABORATORY | | | | for infection. | | | | + + + + + + | Absolute | 14.63 (H) | 1.80 - 8.50 | [facility] | | | Neutrophils | | K/uL | [facility] | | | | | | MEDICAL | | | | | | CENTER - | | | | | | LABORATORY | | + + + + + + | Absolute | 2.30 | 0.60 - 3.20 | [facility] | | | Lymphocytes | | K/uL | [facility] | | | | | | MEDICAL | | | | | | CENTER - | | | | | | LABORATORY | | + + + + + + | Absolute | 1.16 (H) | 0.00 - 1.00 | [facility] | | | Monocytes | | K/uL | [facility] | | | | | | MEDICAL | | | | | | CENTER - | | | | | | LABORATORY | | + + + + + + | Absolute | 0.36 | 0.00 - 0.40 | [facility] | | | Eosinophils | | K/uL | [facility] | | | | | | MEDICAL | | | | | | CENTER - | | | | | | LABORATORY | | + + + + + + | Absolute | 0.17 (H) | 0.00 - 0.10 | [facility] | | | Basophils | | K/uL | [facility] | | | | | | MEDICAL | | | | | | CENTER - | | | | | | LABORATORY | | + + + + + + | Absolute | 0.14 (H) | 0.00 - 0.03 | [facility] | | | Immature | | K/uL | [facility] | | | Granulocyte | | | MEDICAL | | | s | | | CENTER - | | | | | | LABORATORY | | + + + + + + | % nRBC | 0 | 0 - 2 per 100 | [facility] | | | | | WBCs | [facility] | | | | | | MEDICAL | | | | | | CENTER - | | | | | | LABORATORY | | + + + + + + | Absolute | 0.00 | 0.00 - 0.01 | [facility] | | | nRBC | | K/uL | [facility] | | | | | | MEDICAL | | | | | | CENTER - | | | | | | LABORATORY | | + + + + + + + + | Specimen | + + | Blood | + + + + + + + | Performing | Address | City/State/Zipcode | Phone Number | | Organization | | | | + + + + + | [facility] | [address] | [place] | [phone] | | [facility] | | [address] | | | - LABORATORY | | | | + + + + + POC Glucose (02/16/2020 8:26 PM PDT) + +-------+ + + + | Component | Value | Ref Range | Performed | Pathologist | | | | | At | Signature | + +-------+ + + + | Glucose, | 80 | 70 - 109 mg/dL | [facility] | | | POC | | | [facility] | | | | | | MEDICAL | | | | | | CENTER - | | | | | | LABORATORY | | + +-------+ + + + + + | Specimen | + + | Blood | + + + + + + + | Performing | Address | City/State/Zipcode | Phone Number | | Organization | | | | + + + + + | [facility] | [address] | [place] | [phone] | | [facility] | | [address] | | | - LABORATORY | | | | + + + + + B Type Natriuretic Peptide (02/16/2020 5:40 PM PDT) + + + + + + | Component | Value | Ref Range | Performed | Pathologist | | | | | At | Signature | + + + + + + | BNP | 164 (H)Comment: New | <100 pg/mL | [facility] | | | | method in use as of | | [facility] | | | | November 22, 2018. Check | | MEDICAL | | | | reference range for | | CENTER - | | | | changes.Some analytes | | LABORATORY | | | | show significant | | | | | | variation from the | | | | | | previous method.It may | | | | | | be necessary to set a | | | | | | new baseline for this | | | | | | analyte. | | | | + + + + + + + + | Specimen | + + | Blood | + + + + + + + | Performing | Address | City/State/Zipcode | Phone Number | | Organization | | | | + + + + + | [facility] | [address] | [place] | [phone] | | [facility] | | [address] | | | - LABORATORY | | | | + + + + + Hemoglobin and Hematocrit (02/16/2020 5:40 PM PDT) + + + + + + | Component | Value | Ref Range | Performed | Pathologist | | | | | At | Signature | + + + + + + | Hematocrit | 24.3 (L) | 40.0 - 51.0 % | [facility] | | | | | | [facility] | | | | | | MEDICAL | | | | | | CENTER - | | | | | | LABORATORY | | + + + + + + | Hemoglobin | 7.4 (LL)Comment: | 13.5 - 18.0 | [facility] | | | | Critical Result called | g/dL | [facility] | | | | to and read back by | | MEDICAL | | | | Jerome Prado RN on | | CENTER - | | | | 02/16/2020 at 6:00 PM by | | LABORATORY | | | | Marcie Archibald. | | | | + + + + + + + + | Specimen | + + | Blood | + + + + + + + | Performing | Address | City/State/Zipcode | Phone Number | | Organization | | | | + + + + + | [facility] | [address] | [place] | [phone] | | [facility] | | [address] | | | - LABORATORY | | | | + + + + + Basic Metabolic Panel (02/16/2020 5:40 PM PDT) + + + + + + | Component | Value | Ref Range | Performed | Pathologist | | | | | At | Signature | + + + + + + | Na | 143 | 136 - 145 | [facility] | | | | | mmol/L | [facility] | | | | | | MEDICAL | | | | | | CENTER - | | | | | | LABORATORY | | + + + + + + | K | 4.6 | 3.4 - 5.1 | [facility] | | | | | mmol/L | [facility] | | | | | | MEDICAL | | | | | | CENTER - | | | | | | LABORATORY | | + + + + + + | Cl | 118 (H) | 98 - 107 mmol/L | [facility] | | | | | | [facility] | | | | | | MEDICAL | | | | | | CENTER - | | | | | | LABORATORY | | + + + + + + | CO2 | 17 (L) | 20 - 31 mmol/L | [facility] | | | | | | [facility] | | | | | | MEDICAL | | | | | | CENTER - | | | | | | LABORATORY | | + + + + + + | Anion Gap | 8 | 3 - 16 mmol/L | [facility] | | | | | | [facility] | | | | | | MEDICAL | | | | | | CENTER - | | | | | | LABORATORY | | + + + + + + | Glucose | 121 (H) | 60 - 106 mg/dL | [facility] | | | | | | [facility] | | | | | | MEDICAL | | | | | | CENTER - | | | | | | LABORATORY | | + + + + + + | BUN | 48 (H) | 9 - 23 mg/dL | [facility] | | | | | | [facility] | | | | | | MEDICAL | | | | | | CENTER - | | | | | | LABORATORY | | + + + + + + | Creatinine | 4.06 (H) | 0.70 - 1.30 | [facility] | | | | | mg/dL | [facility] | | | | | | MEDICAL | | | | | | CENTER - | | | | | | LABORATORY | | + + + + + + | eGFR if not | 17 (L)Comment: | >=60 | [facility] | | | | GLOMERULAR FILTRATION | mL/min/1.73m2 | [facility] | | | [place] | RATE,ESTIMATED | | MEDICAL | | | | mL/min/1.16z5Ncgs than | | CENTER - | | | | 60 Chronic kidney | | LABORATORY | | | | disease,if found over a | | | | | | 3-month period.Less than | | | | | | 15 Kidney failureFor | | | | | | | | | | | | Americans,multiply the | | | | | | calculated GFR by 1.21. | | | | | | | | | | + + + + + + | Calcium | 7.5 (L) | 8.7 - 10.4 | [facility] | | | | | mg/dL | [facility] | | | | | | MEDICAL | | | | | | CENTER - | | | | | | LABORATORY | | + + + + + + | BUN/Creatin | 11.8 | | [facility] | | | ine Ratio | | | [facility] | | | | | | MEDICAL | | | | | | CENTER - | | | | | | LABORATORY | | + + + + + + + + | Specimen | + + | Blood | + + + + + + + | Performing | Address | City/State/Zipcode | Phone Number | | Organization | | | | + + + + + | [facility] | [address] | [place] | [phone] | | [facility] | | [address] | | | - LABORATORY | | | | + + + + + CLOSTRIDIOIDES DIFFICILE TOX AG EIA (REFLEX) (02/16/2020 2:00 PM PDT) + + + + + + | Component | Value | Ref Range | Performed | Pathologist | | | | | At | Signature | + + + + + + | C. | Negative | Negative | [facility] | | | difficile, | | | [facility] | | | Tox Ag | | | MEDICAL | | | | | | CENTER - | | | | | | LABORATORY | | + + + + + + + + | Specimen | + + | Stool - Stool | | specimen (specimen) | + + + + + + + | Performing | Address | City/State/Zipcode | Phone Number | | Organization | | | | + + + + + | [facility] | [address] | [place] | [phone] | | [facility] | | [address] | | | - LABORATORY | | | | + + + + + Clostridioides difficile NAAT Reflex (02/16/2020 2:00 PM PDT) + + + + + + | Component | Value | Ref Range | Performed | Pathologist | | | | | At | Signature | + + + + + + | C. | Indeterminate | Negative | [facility] | | | difficile, | (A)Comment: Toxigenic C. | | [facility] | | | Interp | difficile is present | | MEDICAL | | | | but no toxin is | | CENTER - | | | | detected. In the | | LABORATORY | | | | majority of cases, this | | | | | | result indicates | | | | | | asymptomatic | | | | | | colonization. Consider | | | | | | isolation of | | | | | | hospitalized patients | | | | | | based on clinical | | | | | | symptoms and local | | | | | | policy. Decisions on | | | | | | diagnosis and treatment | | | | | | should be based on | | | | | | clinical evaluation. | | | | | | Treatment of | | | | | | colonization to | | | | | | eliminate carriage is | | | | | | not recommended and may | | | | | | trigger clinical | | | | | | infection by altering | | | | | | the normal intestinal | | | | | | se and/or increasing | | | | | | the risk of | | | | | | antimicrobial | | | | | | resistance. | | | | + + + + + + | C. | Negative | Negative | [facility] | | | difficile, | | | [facility] | | | Tox Ag | | | MEDICAL | | | | | | CENTER - | | | | | | LABORATORY | | + + + + + + | C. | Positive | | [facility] | | | difficile, | | | [facility] | | | NAAT | | | MEDICAL | | | | | | CENTER - | | | | | | LABORATORY | | + + + + + + + + | Specimen | + + | Stool - Stool | | specimen (specimen) | + + + + + + + | Performing | Address | City/State/Zipcode | Phone Number | | Organization | | | | + + + + + | [facility] | [address] | [place] | [phone] | | [facility] | | [address] | | | - LABORATORY | | | | + + + + + POC Glucose (02/16/2020 12:31 PM PDT) + +---------+ + + + | Component | Value | Ref Range | Performed | Pathologist | | | | | At | Signature | + +---------+ + + + | Glucose, | 262 (H) | 70 - 109 mg/dL | [facility] | | | POC | | | [facility] | | | | | | MEDICAL | | | | | | CENTER - | | | | | | LABORATORY | | + +---------+ + + + + + | Specimen | + + | Blood | + + + + + + + | Performing | Address | City/State/Zipcode | Phone Number | | Organization | | | | + + + + + | [facility] | [address] | [place] | [phone] | | [facility] | | [address] | | | - LABORATORY | | | | + + + + + US Renal Complete (02/16/2020 12:10 PM PDT) + + | Specimen | + + | | + + + + + | Impressions | Performed At | + + + | Nonobstructing stones of bilateral kidneys with no evidence for | [facility] | | hydronephrosis. Debris within bladder lumen. Mild abdominal | | | ascites. Partially imaged bilateral pleural effusions. | | | Dictated and Signed by: Zenon Cruz MD Electronically signed: | | | 02/16/2020 3:38 PM | | + + + + + + | Narrative | Performed At | + + + | US RENAL COMPLETE 02/16/2020 11:40 AM HISTORY: EULOGIO on CKD. | [facility] | | COMPARISON: None. PROTOCOL: Wayne scale and Doppler images of the | | | kidneys and bladder. FINDINGS: Right Kidney: Several small | | | nonobstructing echogenic stones are visualized within the collecting | | | system. There is no hydronephrosis. Resistive index is 0.56, normal. | | | Size of the kidney is 4.4 x 6.5 x 7.1 cm. Left Kidney: Several | | | small nonobstructing echogenic stones are visualized within the | | | collecting system. There is no hydronephrosis. Resistive index is | | | 0.54, normal. Size of the kidney is 12.1 x 6.4 x 6.3 cm. Bladder: | | | Echogenic mobile debris is noted within the bladder lumen. Postvoid | | | residual is 26 mL. Ureteral jets are seen on the right and left. | | | Mild abdominal ascites is seen. Bilateral pleural effusions are | | | partially imaged. | | + + + + + | Procedure Note | + + | Cheng, Rad Results In - 02/16/2020 3:41 PM PDT US RENAL COMPLETE 02/16/2020 11:40 AM | | | | HISTORY: EULOGIO on CKD. | | | | COMPARISON: None. | | | | PROTOCOL: Wayne scale and Doppler images of the kidneys and bladder. | | | | FINDINGS: | | Right Kidney: Several small nonobstructing echogenic stones are visualized | | within the collecting system. There is no hydronephrosis. Resistive index is | | 0.56, normal. Size of the kidney is 4.4 x 6.5 x 7.1 cm. | | | | Left Kidney: Several small nonobstructing echogenic stones are visualized within | | the collecting system. There is no hydronephrosis. Resistive index is 0.54, | | normal. Size of the kidney is 12.1 x 6.4 x 6.3 cm. | | | | Bladder: Echogenic mobile debris is noted within the bladder lumen. Postvoid | | residual is 26 mL. Ureteral jets are seen on the right and left. | | | | Mild abdominal ascites is seen. Bilateral pleural effusions are partially | | imaged. | | | | IMPRESSION: | | Nonobstructing stones of bilateral kidneys with no evidence for hydronephrosis. | | | | Debris within bladder lumen. | | | | Mild abdominal ascites. | | | | Partially imaged bilateral pleural effusions. | | | | Dictated and Signed by: Zenon Cruz MD | | Electronically signed: 02/16/2020 3:38 PM | + + + +---------+ + + | Performing | Address | City/State/Zipcode | Phone Number | | Organization | | | | + +---------+ + + | [facility] | | | | + +---------+ + + Osmolality, Urine (02/16/2020 10:58 AM PDT) + +-------+ + + + | Component | Value | Ref Range | Performed | Pathologist | | | | | At | Signature | + +-------+ + + + | OSMO URINE | 324 | 300-1,000 | [facility] | | | | | mOsm/kg | [facility] | | | | | | MEDICAL | | | | | | CENTER - | | | | | | LABORATORY | | + +-------+ + + + + + | Specimen | + + | Urine | + + + + + + + | Performing | Address | City/State/Zipcode | Phone Number | | Organization | | | | + + + + + | [facility] | [address] | [place] | [phone] | | [facility] | | [address] | | | - LABORATORY | | | | + + + + + Sodium, Urine, Random (02/16/2020 10:58 AM PDT) + +-------+ + + + | Component | Value | Ref Range | Performed | Pathologist | | | | | At | Signature | + +-------+ + + + | Sodium, | 64 | 40 - 220 mmol/L | [facility] | | | Urine | | | [facility] | | | Random | | | MEDICAL | | | | | | CENTER - | | | | | | LABORATORY | | + +-------+ + + + + + | Specimen | + + | Urine | + + + + + + + | Performing | Address | City/State/Zipcode | Phone Number | | Organization | | | | + + + + + | [facility] | [address] | [place] | [phone] | | [facility] | | [address] | | | - LABORATORY | | | | + + + + + Creatinine, Urine, Random (02/16/2020 10:58 AM PDT) + +-------+ + + + | Component | Value | Ref Range | Performed | Pathologist | | | | | At | Signature | + +-------+ + + + | Creatinine, | 60 | mg/dL | [facility] | | | Urine, | | | [facility] | | | Random | | | MEDICAL | | | | | | CENTER - | | | | | | LABORATORY | | + +-------+ + + + + + | Specimen | + + | Urine | + + + + + + + | Performing | Address | City/State/Zipcode | Phone Number | | Organization | | | | + + + + + | [facility] | [address] | [place] | [phone] | | [facility] | | [address] | | | - LABORATORY | | | | + + + + + XR Chest AP Portable (02/16/2020 9:06 AM PDT) + + | Specimen | + + | | + + + + + | Impressions | Performed At | + + + | Moderate opacity and airspace disease in the right lower lobe that | [facility] | | may represent atelectasis or pneumonia. Dictated and Signed by: | | | Zenon Cruz MD Electronically signed: 02/16/2020 2:53 PM | | + + + + + + | Narrative | Performed At | + + + | XR CHEST AP PORTABLE 02/16/2020 8:43 AM HISTORY: ARF. | [facility] | | COMPARISON: 01/05/2020. Findings: Heart size is within normal | | | limits. Aorta is normal. Mediastinum demonstrates no acute findings. | | | Central pulmonary vasculature is normal. Moderate opacity and | | | airspace disease are in the right lower lobe that may represent | | | atelectasis or pneumonia. The left lung is clear. There are no acute | | | osseous abnormalities. | | + + + + + | Procedure Note | + + | Cheng, Rad Results In - 02/16/2020 2:56 PM PDT XR CHEST AP PORTABLE 02/16/2020 8:43 AM | | | | HISTORY: ARF. | | | | COMPARISON: 01/05/2020. | | | | Findings: | | Heart size is within normal limits. Aorta is normal. Mediastinum demonstrates no | | acute findings. Central pulmonary vasculature is normal. Moderate opacity and | | airspace disease are in the right lower lobe that may represent atelectasis or | | pneumonia. The left lung is clear. There are no acute osseous abnormalities. | | | | IMPRESSION: | | Moderate opacity and airspace disease in the right lower lobe that may represent | | atelectasis or pneumonia. | | | | Dictated and Signed by: Zenon Cruz MD | | Electronically signed: 02/16/2020 2:53 PM | + + + +---------+ + + | Performing | Address | City/State/Zipcode | Phone Number | | Organization | | | | + +---------+ + + | [facility] | | | | + +---------+ + + Hemoglobin and Hematocrit (02/16/2020 8:05 AM PDT) + + + + + + | Component | Value | Ref Range | Performed | Pathologist | | | | | At | Signature | + + + + + + | Hematocrit | 25.0 (L) | 40.0 - 51.0 % | [facility] | | | | | | [facility] | | | | | | MEDICAL | | | | | | CENTER - | | | | | | LABORATORY | | + + + + + + | Hemoglobin | 7.6 (L) | 13.5 - 18.0 | [facility] | | | | | g/dL | [facility] | | | | | | MEDICAL | | | | | | CENTER - | | | | | | LABORATORY | | + + + + + + + + | Specimen | + + | Blood | + + + + + + + | Performing | Address | City/State/Zipcode | Phone Number | | Organization | | | | + + + + + | [facility] | [address] | [place] | [phone] | | [facility] | | [address] | | | - LABORATORY | | | | + + + + + Extra Lavender Top Tube (02/16/2020 8:05 AM PDT) + +-------+ + + + | Component | Value | Ref Range | Performed | Pathologist | | | | | At | Signature | + +-------+ + + + | Extra | Done | | [facility] | | | Lavender | | | [facility] | | | Top Tube | | | MEDICAL | | | | | | CENTER - | | | | | | LABORATORY | | + +-------+ + + + + + | Specimen | + + | Blood | + + + + + + + | Performing | Address | City/State/Zipcode | Phone Number | | Organization | | | | + + + + + | [facility] | [address] | [place] | [phone] | | [facility] | | [address] | | | - LABORATORY | | | | + + + + + Basic Metabolic Panel (02/16/2020 8:05 AM PDT) + + + + + + | Component | Value | Ref Range | Performed | Pathologist | | | | | At | Signature | + + + + + + | Na | 141 | 136 - 145 | [facility] | | | | | mmol/L | [facility] | | | | | | MEDICAL | | | | | | CENTER - | | | | | | LABORATORY | | + + + + + + | K | 5.3 (H) | 3.4 - 5.1 | [facility] | | | | | mmol/L | [facility] | | | | | | MEDICAL | | | | | | CENTER - | | | | | | LABORATORY | | + + + + + + | Cl | 117 (H) | 98 - 107 mmol/L | [facility] | | | | | | [facility] | | | | | | MEDICAL | | | | | | CENTER - | | | | | | LABORATORY | | + + + + + + | CO2 | 14 (L) | 20 - 31 mmol/L | [facility] | | | | | | [facility] | | | | | | MEDICAL | | | | | | CENTER - | | | | | | LABORATORY | | + + + + + + | Anion Gap | 10 | 3 - 16 mmol/L | [facility] | | | | | | [facility] | | | | | | MEDICAL | | | | | | CENTER - | | | | | | LABORATORY | | + + + + + + | Glucose | 242 (H) | 60 - 106 mg/dL | [facility] | | | | | | [facility] | | | | | | MEDICAL | | | | | | CENTER - | | | | | | LABORATORY | | + + + + + + | BUN | 50 (H) | 9 - 23 mg/dL | [facility] | | | | | | [facility] | | | | | | MEDICAL | | | | | | CENTER - | | | | | | LABORATORY | | + + + + + + | Creatinine | 4.11 (H) | 0.70 - 1.30 | [facility] | | | | | mg/dL | [facility] | | | | | | MEDICAL | | | | | | CENTER - | | | | | | LABORATORY | | + + + + + + | eGFR if not | 17 (L)Comment: | >=60 | [facility] | | | | GLOMERULAR FILTRATION | mL/min/1.73m2 | [facility] | | | [place] | RATE,ESTIMATED | | MEDICAL | | | | mL/min/1.48b1Raqj than | | CENTER - | | | | 60 Chronic kidney | | LABORATORY | | | | disease,if found over a | | | | | | 3-month period.Less than | | | | | | 15 Kidney failureFor | | | | | | | | | | | | Americans,multiply the | | | | | | calculated GFR by 1.21. | | | | | | | | | | + + + + + + | Calcium | 7.3 (L) | 8.7 - 10.4 | [facility] | | | | | mg/dL | [facility] | | | | | | MEDICAL | | | | | | CENTER - | | | | | | LABORATORY | | + + + + + + | BUN/Creatin | 12.2 | | [facility] | | | ine Ratio | | | [facility] | | | | | | MEDICAL | | | | | | CENTER - | | | | | | LABORATORY | | + + + + + + + + | Specimen | + + | Blood | + + + + + + + | Performing | Address | City/State/Zipcode | Phone Number | | Organization | | | | + + + + + | [facility] | [address] | [place] | [phone] | | [facility] | | [address] | | | - LABORATORY | | | | + + + + + Beta Hydroxybutyrate, Quant (02/16/2020 8:05 AM PDT) + + + + + + | Component | Value | Ref Range | Performed | Pathologist | | | | | At | Signature | + + + + + + | Beta | 0.54 (H) | 0.02 - 0.27 | [facility] | | | Hydroxybuty | | mmol/L | [facility] | | | rate | | | MEDICAL | | | | | | CENTER - | | | | | | LABORATORY | | + + + + + + + + | Specimen | + + | Blood | + + + + + + + | Performing | Address | City/State/Zipcode | Phone Number | | Organization | | | | + + + + + | [facility] | [address] | [place] | [phone] | | [facility] | | [address] | | | - LABORATORY | | | | + + + + + POC Glucose (02/16/2020 6:43 AM PDT) + +---------+ + + + | Component | Value | Ref Range | Performed | Pathologist | | | | | At | Signature | + +---------+ + + + | Glucose, | 296 (H) | 70 - 109 mg/dL | [facility] | | | POC | | | [facility] | | | | | | MEDICAL | | | | | | CENTER - | | | | | | LABORATORY | | + +---------+ + + + + + | Specimen | + + | Blood | + + + + + + + | Performing | Address | City/State/Zipcode | Phone Number | | Organization | | | | + + + + + | [facility] | [address] | [place] | [phone] | | [facility] | | [address] | | | - LABORATORY | | | | + + + + + Red Blood Cells (PRBC) - Crossmatch (02/16/2020 3:29 AM PDT) + + + + + + | Component | Value | Ref Range | Performed | Pathologist | | | | | At | Signature | + + + + + + | Product | [id number] | | [facility] | | | Code | | | [facility] | | | | | | MEDICAL | | | | | | CENTER - | | | | | | BLOOD BANK | | + + + + + + | UNIT # | [id number] | | [facility] | | | | | | [facility] | | | | | | MEDICAL | | | | | | CENTER - | | | | | | BLOOD BANK | | + + + + + + | UNIT ABO | O | | [facility] | | | | | | [facility] | | | | | | MEDICAL | | | | | | CENTER - | | | | | | BLOOD BANK | | + + + + + + | UNIT RH | POS | | [facility] | | | | | | [facility] | | | | | | MEDICAL | | | | | | CENTER - | | | | | | BLOOD BANK | | + + + + + + | CROSSMATCH | Compatible | | [facility] | | | INTERP | | | [facility] | | | | | | MEDICAL | | | | | | CENTER - | | | | | | BLOOD BANK | | + + + + + + | Unit Status | Issued | | [facility] | | | | | | [facility] | | | | | | MEDICAL | | | | | | CENTER - | | | | | | BLOOD BANK | | + + + + + + | Blood | [id number] | | [facility] | | | Product | | | [facility] | | | Expiration | | | MEDICAL | | | Date and | | | CENTER - | | | Time | | | BLOOD BANK | | + + + + + + | Product | [id number] | | [facility] | | | Blood Type | | | [facility] | | | Barcode | | | MEDICAL | | | | | | CENTER - | | | | | | BLOOD BANK | | + + + + + + + + | Specimen | + + | | + + + + + + + | Performing | Address | City/State/Zipcode | Phone Number | | Organization | | | | + + + + + | [facility] | [address] | [place] | | | [facility] | | [address] | | | - BLOOD BANK | | | | + + + + + B Type Natriuretic Peptide (02/16/2020 1:53 AM PDT) + + + + + + | Component | Value | Ref Range | Performed | Pathologist | | | | | At | Signature | + + + + + + | BNP | 126 (H)Comment: New | <100 pg/mL | [facility] | | | | method in use as of | | [facility] | | | | November 22, 2018. Check | | MEDICAL | | | | reference range for | | CENTER - | | | | changes.Some analytes | | LABORATORY | | | | show significant | | | | | | variation from the | | | | | | previous method.It may | | | | | | be necessary to set a | | | | | | new baseline for this | | | | | | analyte. | | | | + + + + + + + + | Specimen | + + | Blood | + + + + + + + | Performing | Address | City/State/Zipcode | Phone Number | | Organization | | | | + + + + + | [facility] | [address] | [place] | [phone] | | [facility] | | [address] | | | - LABORATORY | | | | + + + + + CBC with Differential (02/16/2020 1:53 AM PDT) + + + + + + | Component | Value | Ref Range | Performed | Pathologist | | | | | At | Signature | + + + + + + | WBC | 19.4 (H) | 4.0 - 11.0 K/uL | [facility] | | | | | | [facility] | | | | | | MEDICAL | | | | | | CENTER - | | | | | | LABORATORY | | + + + + + + | RBC | 2.22 (L) | 4.30 - 5.70 | [facility] | | | | | M/uL | [facility] | | | | | | MEDICAL | | | | | | CENTER - | | | | | | LABORATORY | | + + + + + + | Hemoglobin | 6.6 (LL)Comment: | 13.5 - 18.0 | [facility] | | | | Critical Result called | g/dL | [facility] | | | | to and read back by | | MEDICAL | | | | Bradley Hancock RN on | | CENTER - | | | | 02/16/2020 at 2:09 AM by | | LABORATORY | | | | Nabeel Walton. | | | | + + + + + + | Hematocrit | 21.9 (L) | 40.0 - 51.0 % | [facility] | | | | | | [facility] | | | | | | MEDICAL | | | | | | CENTER - | | | | | | LABORATORY | | + + + + + + | MCV | 98.6 | 83.0 - 101.0 fL | [facility] | | | | | | [facility] | | | | | | MEDICAL | | | | | | CENTER - | | | | | | LABORATORY | | + + + + + + | MCH | 29.7 | 28.0 - 35.0 pg | [facility] | | | | | | [facility] | | | | | | MEDICAL | | | | | | CENTER - | | | | | | LABORATORY | | + + + + + + | MCHC | 30.1 (L) | 32.0 - 36.0 | [facility] | | | | | g/dL | [facility] | | | | | | MEDICAL | | | | | | CENTER - | | | | | | LABORATORY | | + + + + + + | RDW-CV | 15.3 (H) | <15.0 % | [facility] | | | | | | [facility] | | | | | | MEDICAL | | | | | | CENTER - | | | | | | LABORATORY | | + + + + + + | RDW-SD | 54.7 (H) | 35.1 - 46.3 fL | [facility] | | | | | | [facility] | | | | | | MEDICAL | | | | | | CENTER - | | | | | | LABORATORY | | + + + + + + | Platelet | 409 | 140 - 440 K/uL | [facility] | | | Count | | | [facility] | | | | | | MEDICAL | | | | | | CENTER - | | | | | | LABORATORY | | + + + + + + | MPV | 11.9 | 6.5 - 12.4 fL | [facility] | | | | | | [facility] | | | | | | MEDICAL | | | | | | CENTER - | | | | | | LABORATORY | | + + + + + + | % | 79.5 | 45.0 - 82.0 % | [facility] | | | Neutrophils | | | [facility] | | | | | | MEDICAL | | | | | | CENTER - | | | | | | LABORATORY | | + + + + + + | % | 13.1 (L) | 20.0 - 45.0 % | [facility] | | | Lymphocytes | | | [facility] | | | | | | MEDICAL | | | | | | CENTER - | | | | | | LABORATORY | | + + + + + + | % Monocytes | 5.4 | 4.0 - 12.0 % | [facility] | | | | | | [facility] | | | | | | MEDICAL | | | | | | CENTER - | | | | | | LABORATORY | | + + + + + + | % | 0.8 | 0.0 - 5.0 % | [facility] | | | Eosinophils | | | [facility] | | | | | | MEDICAL | | | | | | CENTER - | | | | | | LABORATORY | | + + + + + + | % Basophils | 0.6 | 0.0 - 1.0 % | [facility] | | | | | | [facility] | | | | | | MEDICAL | | | | | | CENTER - | | | | | | LABORATORY | | + + + + + + | % Immature | 0.6 (H)Comment: | 0.0 - 0.4 % | [facility] | | | Granulocyte | Preliminary studies have | | [facility] | | | s | indicated the IG% | | MEDICAL | | | | and/or IG# show promise | | CENTER - | | | | as an early indicator | | LABORATORY | | | | for infection. | | | | + + + + + + | Absolute | 15.42 (H) | 1.80 - 8.50 | [facility] | | | Neutrophils | | K/uL | [facility] | | | | | | MEDICAL | | | | | | CENTER - | | | | | | LABORATORY | | + + + + + + | Absolute | 2.54 | 0.60 - 3.20 | [facility] | | | Lymphocytes | | K/uL | [facility] | | | | | | MEDICAL | | | | | | CENTER - | | | | | | LABORATORY | | + + + + + + | Absolute | 1.04 (H) | 0.00 - 1.00 | [facility] | | | Monocytes | | K/uL | [facility] | | | | | | MEDICAL | | | | | | CENTER - | | | | | | LABORATORY | | + + + + + + | Absolute | 0.15 | 0.00 - 0.40 | [facility] | | | Eosinophils | | K/uL | [facility] | | | | | | MEDICAL | | | | | | CENTER - | | | | | | LABORATORY | | + + + + + + | Absolute | 0.12 (H) | 0.00 - 0.10 | [facility] | | | Basophils | | K/uL | [facility] | | | | | | MEDICAL | | | | | | CENTER - | | | | | | LABORATORY | | + + + + + + | Absolute | 0.12 (H) | 0.00 - 0.03 | [facility] | | | Immature | | K/uL | [facility] | | | Granulocyte | | | MEDICAL | | | s | | | CENTER - | | | | | | LABORATORY | | + + + + + + | % nRBC | 0 | 0 - 2 per 100 | [facility] | | | | | WBCs | [facility] | | | | | | MEDICAL | | | | | | CENTER - | | | | | | LABORATORY | | + + + + + + | Absolute | 0.00 | 0.00 - 0.01 | [facility] | | | nRBC | | K/uL | [facility] | | | | | | MEDICAL | | | | | | CENTER - | | | | | | LABORATORY | | + + + + + + + + | Specimen | + + | Blood | + + + + + + + | Performing | Address | City/State/Zipcode | Phone Number | | Organization | | | | + + + + + | [facility] | [address] | [place] | [phone] | | [facility] | | [address] | | | - LABORATORY | | | | + + + + + Parathyroid Hormone, Intact (02/16/2020 1:53 AM PDT) + + + + + + | Component | Value | Ref Range | Performed | Pathologist | | | | | At | Signature | + + + + + + | PTH Intact | 49Comment: New method in | 19 - 88 pg/mL | [facility] | | | | use as of November 22 | | [facility] | | | | 2018. Check reference | | MEDICAL | | | | range for changes.Some | | CENTER - | | | | analytes show | | LABORATORY | | | | significant variation | | | | | | from the previous | | | | | | method.It may be | | | | | | necessary to set a new | | | | | | baseline for this | | | | | | analyte. | | | | + + + + + + + + | Specimen | + + | Blood | + + + + + + + | Performing | Address | City/State/Zipcode | Phone Number | | Organization | | | | + + + + + | [facility] | [address] | [place] | [phone] | | [facility] | | [address] | | | - LABORATORY | | | | + + + + + Retic Count (02/16/2020 1:53 AM PDT) + + + + + + | Component | Value | Ref Range | Performed | Pathologist | | | | | At | Signature | + + + + + + | % | 3.2 (H) | 0.5 - 1.5 % | [facility] | | | Reticulocyt | | | [facility] | | | e Count | | | MEDICAL | | | | | | CENTER - | | | | | | LABORATORY | | + + + + + + | Absolute | 0.0704 | 0.0260 - 0.0950 | [facility] | | | Reticulocyt | | M/uL | [facility] | | | e Count | | | MEDICAL | | | | | | CENTER - | | | | | | LABORATORY | | + + + + + + | Immature | 25.5 (H)Comment: Values | 2.3 - 15.9 % | [facility] | | | Reticulocyt | above normal range | | [facility] | | | e Fraction | indicate an increase in | | MEDICAL | | | | RBC production in the | | CENTER - | | | | bone marrow. | | LABORATORY | | + + + + + + | Reticulocyt | 30.3Comment: Values | 29.0 - 38.0 pg | [facility] | | | e | below 29 pg are an early | | [facility] | | | Hemoglobin | indicator of iron | | MEDICAL | | | Content | deficiency. | | CENTER - | | | | | | LABORATORY | | + + + + + + + + | Specimen | + + | Blood | + + + + + + + | Performing | Address | City/State/Zipcode | Phone Number | | Organization | | | | + + + + + | [facility] | [address] | [place] | [phone] | | [facility] | | [address] | | | - LABORATORY | | | | + + + + + Type and Screen (02/16/2020 1:53 AM PDT) + + + + + + | Component | Value | Ref Range | Performed | Pathologist | | | | | At | Signature | + + + + + + | ABO | O | | [facility] | | | | | | [facility] | | | | | | MEDICAL | | | | | | CENTER - | | | | | | BLOOD BANK | | + + + + + + | Rh Type | Positive | | [facility] | | | | | | [facility] | | | | | | MEDICAL | | | | | | CENTER - | | | | | | BLOOD BANK | | + + + + + + | Antibody | Negative | | [facility] | | | Screen | | | [facility] | | | | | | MEDICAL | | | | | | CENTER - | | | | | | BLOOD BANK | | + + + + + + + + | Specimen | + + | Blood | + + + + + + + | Performing | Address | City/State/Zipcode | Phone Number | | Organization | | | | + + + + + | [facility] | [address] | [place] | | | [facility] | | [address] | | | - BLOOD BANK | | | | + + + + + Ferritin (02/16/2020 1:52 AM PDT) + +---------+ + + + | Component | Value | Ref Range | Performed | Pathologist | | | | | At | Signature | + +---------+ + + + | FERRITIN | 388 (H) | 11 - 307 ng/mL | [facility] | | | | | | [facility] | | | | | | MEDICAL | | | | | | CENTER - | | | | | | LABORATORY | | + +---------+ + + + + + | Specimen | + + | Blood | + + + + + + + | Performing | Address | City/State/Zipcode | Phone Number | | Organization | | | | + + + + + | [facility] | [address] | [place] | [phone] | | [facility] | | [address] | | | - LABORATORY | | | | + + + + + Iron and Transferrin (02/16/2020 1:52 AM PDT) + + + + + + | Component | Value | Ref Range | Performed | Pathologist | | | | | At | Signature | + + + + + + | Iron | 14 (L) | 65 - 175 ug/dL | [facility] | | | | | | [facility] | | | | | | MEDICAL | | | | | | CENTER - | | | | | | LABORATORY | | + + + + + + | TRANSFERRIN | 85.0 (L) | 215.0 - 365.0 | [facility] | | | | | mg/dL | [facility] | | | | | | MEDICAL | | | | | | CENTER - | | | | | | LABORATORY | | + + + + + + | TIBC | 119 (L) | 235 - 425 ug/dL | [facility] | | | | | | [facility] | | | | | | MEDICAL | | | | | | CENTER - | | | | | | LABORATORY | | + + + + + + | % | 11.8 (L) | 20.0 - 55.0 % | [facility] | | | SATURATION | | | [facility] | | | | | | MEDICAL | | | | | | CENTER - | | | | | | LABORATORY | | + + + + + + + + | Specimen | + + | Blood | + + + + + + + | Performing | Address | City/State/Zipcode | Phone Number | | Organization | | | | + + + + + | [facility] | [address] | [place] | [phone] | | [facility] | | [address] | | | - LABORATORY | | | | + + + + + Lactic Acid (02/16/2020 1:52 AM PDT) + +-------+ + + + | Component | Value | Ref Range | Performed | Pathologist | | | | | At | Signature | + +-------+ + + + | Lactate | 0.5 | 0.5 - 2.2 | [facility] | | | | | mmol/L | [facility] | | | | | | MEDICAL | | | | | | CENTER - | | | | | | LABORATORY | | + +-------+ + + + + + | Specimen | + + | Blood | + + + + + + + | Performing | Address | City/State/Zipcode | Phone Number | | Organization | | | | + + + + + | [facility] | [address] | [place] | [phone] | | [facility] | | [address] | | | - LABORATORY | | | | + + + + + Comprehensive Metabolic Panel (02/16/2020 1:52 AM PDT) + + + + + + | Component | Value | Ref Range | Performed | Pathologist | | | | | At | Signature | + + + + + + | Na | 140 | 136 - 145 | [facility] | | | | | mmol/L | [facility] | | | | | | MEDICAL | | | | | | CENTER - | | | | | | LABORATORY | | + + + + + + | K | 5.7 (H) | 3.4 - 5.1 | [facility] | | | | | mmol/L | [facility] | | | | | | MEDICAL | | | | | | CENTER - | | | | | | LABORATORY | | + + + + + + | Cl | 117 (H) | 98 - 107 mmol/L | [facility] | | | | | | [facility] | | | | | | MEDICAL | | | | | | CENTER - | | | | | | LABORATORY | | + + + + + + | CO2 | 13 (L) | 20 - 31 mmol/L | [facility] | | | | | | [facility] | | | | | | MEDICAL | | | | | | CENTER - | | | | | | LABORATORY | | + + + + + + | Anion Gap | 10 | 3 - 16 mmol/L | [facility] | | | | | | [facility] | | | | | | MEDICAL | | | | | | CENTER - | | | | | | LABORATORY | | + + + + + + | Glucose | 220 (H) | 60 - 106 mg/dL | [facility] | | | | | | [facility] | | | | | | MEDICAL | | | | | | CENTER - | | | | | | LABORATORY | | + + + + + + | BUN | 38 (H) | 9 - 23 mg/dL | [facility] | | | | | | [facility] | | | | | | MEDICAL | | | | | | CENTER - | | | | | | LABORATORY | | + + + + + + | Creatinine | 4.02 (H) | 0.70 - 1.30 | [facility] | | | | | mg/dL | [facility] | | | | | | MEDICAL | | | | | | CENTER - | | | | | | LABORATORY | | + + + + + + | eGFR if not | 18 (L)Comment: | >=60 | [facility] | | | | GLOMERULAR FILTRATION | mL/min/1.73m2 | [facility] | | | PALESTINIAN | RATE,ESTIMATED | | MEDICAL | | | | mL/min/1.06i2Vpau than | | CENTER - | | | | 60 Chronic kidney | | LABORATORY | | | | disease,if found over a | | | | | | 3-month period.Less than | | | | | | 15 Kidney failureFor | | | | | | | | | | | | Americans,multiply the | | | | | | calculated GFR by 1.21. | | | | | | | | | | + + + + + + | Calcium | 7.5 (L) | 8.7 - 10.4 | [facility] | | | | | mg/dL | [facility] | | | | | | MEDICAL | | | | | | CENTER - | | | | | | LABORATORY | | + + + + + + | Albumin | 2.3 (L) | 3.2 - 4.8 g/dL | [facility] | | | | | [facility] | | | | | | MEDICAL | | | | | | CENTER - | | | | | | LABORATORY | | + + + + + + | Bilirubin | <0.2 (L) | 0.3 - 1.2 mg/dL | [facility] | | | Total | | | [facility] | | | | | | MEDICAL | | | | | | CENTER - | | | | | | LABORATORY | | + + + + + + | Total | 5.0 (L) | 5.7 - 8.2 g/dL | [facility] | | | Protein | | | [facility] | | | | | | MEDICAL | | | | | | CENTER - | | | | | | LABORATORY | | + + + + + + | AST | 12 | 0 - 34 U/L | [facility] | | | | | | [facility] | | | | | | MEDICAL | | | | | | CENTER - | | | | | | LABORATORY | | + + + + + + | ALT | <7 (L) | 10 - 49 U/L | [facility] | | | | | | [facility] | | | | | | MEDICAL | | | | | | CENTER - | | | | | | LABORATORY | | + + + + + + | Alkaline | 133 (H) | 46 - 116 U/L | [facility] | | | Phosphatase | | | [facility] | | | | | | MEDICAL | | | | | | CENTER - | | | | | | LABORATORY | | + + + + + + | Globulin | 2.7 | 2.1 - 3.8 g/dL | [facility] | | | | | | [facility] | | | | | | MEDICAL | | | | | | CENTER - | | | | | | LABORATORY | | + + + + + + | Albumin/Maria Del Carmen | 0.9 | 0.8 - 1.9 | [facility] | | | bulin Ratio | | | [facility] | | | | | | MEDICAL | | | | | | CENTER - | | | | | | LABORATORY | | + + + + + + | BUN/Creatin | 9.5 | | [facility] | | | ine Ratio | | | [facility] | | | | | | MEDICAL | | | | | | CENTER - | | | | | | LABORATORY | | + + + + + + + + | Specimen | + + | Blood | + + + + + + + | Performing | Address | City/State/Zipcode | Phone Number | | Organization | | | | + + + + + | [facility] | [address] | [place] | [phone] | | [facility] | | [address] | | | - LABORATORY | | | | + + + + + Folate (02/16/2020 1:52 AM PDT) + +-------+ + + + | Component | Value | Ref Range | Performed | Pathologist | | | | | At | Signature | + +-------+ + + + | FOLATE | 8.5 | >5.4 ng/mL | [facility] | | | | | | [facility] | | | | | | MEDICAL | | | | | | CENTER - | | | | | | LABORATORY | | + +-------+ + + + + + | Specimen | + + | Blood | + + + + + + + | Performing | Address | City/State/Zipcode | Phone Number | | Organization | | | | + + + + + | [facility] | [address] | [place] | [phone] | | [facility] | | [address] | | | - LABORATORY | | | | + + + + + Vitamin B-12 (02/16/2020 1:52 AM PDT) + + + + + + | Component | Value | Ref Range | Performed | Pathologist | | | | | At | Signature | + + + + + + | VITAMIN | 1,257 (H)Comment: | 156 - 672 pg/mL | [facility] | | | B-12 | DEFICIENT: | | [facility] | | | | <145 | | MEDICAL | | | | pg/mLINDETERMINATE: | | CENTER - | | | | 145-180 pg/mL | | LABORATORY | | + + + + + + + + | Specimen | + + | Blood | + + + + + + + | Performing | Address | City/State/Zipcode | Phone Number | | Organization | | | | + + + + + | [facility] | [address] | [place], [place] | [phone] | | [facility] | | [address] | | | - LABORATORY | | | | + + + + + Coronavirus (COVID-19) MATTHEW (02/16/2020 1:51 AM PDT) + + + + + + | Component | Value | Ref Range | Performed | Pathologist | | | | | At | Signature | + + + + + + | SARS | NegativeComment: | Negative | [facility] | | | coronavirus | SARS-CoV-2, RNA | | [facility] | | | 2 NAAT | (COVID-19) EUA This | | MEDICAL | | | | assay has been cleared | | CENTER - | | | | for use under an FDA | | LABORATORY | | | | Emergency Use | | | | | | Authorization. This test | | | | | | is used for clinical | | | | | | purposes. It should not | | | | | | be regarded as | | | | | | investigational or for | | | | | | research. This | | | | | | laboratory is certified | | | | | | under the Clinical | | | | | | Laboratory Improvement | | | | | | Amendments (CLIA) as | | | | | | qualified to perform | | | | | | high and moderate | | | | | | complexity testing. | | | | | | Other authorized testing | | | | | | locations include | | | | | | patient care settings | | | | | | using the ID Now | | | | | | Instrument. This test | | | | | | has been validated in | | | | | | accordance with the | | | | | | FDA's Guidance Document | | | | | | "Policy for Diagnostics | | | | | | Testing in Laboratories | | | | | | Certified to Perform | | | | | | High and Moderate | | | | | | Complexity Testing and | | | | | | patient care testing | | | | | | areas where ID NOW is | | | | | | being used, under CLIA | | | | | | prior to Emergency Use | | | | | | Authorization for | | | | | | Coronavirus Disease-2019 | | | | | | during the Public | | | | | | Health Emergency" issued | | | | | | on December 10, 2019. FDA | | | | | | independent review of | | | | | | this validation is | | | | | | pending. This test is | | | | | | only authorized for the | | | | | | duration of time the | | | | | | declaration that | | | | | | circumstances exist | | | | | | justifying the | | | | | | authorization of the | | | | | | emergency use of in | | | | | | vitro diagnostic tests | | | | | | for detection of | | | | | | SARS-CoV-2 virus and/or | | | | | | diagnosis of COVID-19 | | | | | | infection under section | | | | | | 564(b)(1) of the Act, 21 | | | | | | U.S.C. 360bbb-3(b)(1), | | | | | | unless the authorization | | | | | | is terminated or | | | | | | revoked sooner. | | | | + + + + + + + + | Specimen | + + | Tissue - Entire | | nasopharynx (body | | structure) | + + + + + + + | Performing | Address | City/State/Zipcode | Phone Number | | Organization | | | | + + + + + | [facility] | [address] | [place] | [phone] | | [facility] | | [address] | | | - LABORATORY | | | | + + + + + XR Chest 2 Vws (02/15/2020 7:10 PM PDT) + + | Specimen | + + | | + + + + + | Narrative | Performed At | + + + | External films for comparison only | [facility] | | | | | No results will be in the chart. | | + + + + +---------+ + + | Performing | Address | City/State/Zipcode | Phone Number | | Organization | | | | + +---------+ + + | [facility] | | | | + +---------+ + + LABS - EXTERNAL SCAN (02/15/2020 12:00 AM PDT) + + + | Narrative | Performed At | + + + | Ordered by an | | | unspecified provider. | | + + + IMAGING REPORT - EXTERNAL SCAN (02/15/2020 12:00 AM PDT) + + + | Narrative | Performed At | + + + | Ordered by an | | | unspecified provider. | | + + + ECG - EXTERNAL SCAN (02/15/2020 12:00 AM PDT) + + + | Narrative | Performed At | + + + | Ordered by an | | | unspecified provider. 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) | + + | Essential hypertension, malignant | + + | Diabetic gastroparesis (HCC) 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, not stated as uncontrolled | + + | Fissure in skin of foot Other specified disorder of skin | + + | CKD (chronic kidney disease), stage III (HCC) Chronic kidney disease, Stage III | | (moderate) | + + documented in this encounter Administered Medications + +---------+ +--------+-------+------+ | Medication Order | MAR | Action | Dose | Rate | Site | | | Action | Date | | | | + +---------+ +--------+-------+------+ | azithromycin (ZITHROMAX) 500 mg | New Bag | 02/17/20 | 500 mg | 250 | | | in sodium chloride 0.9% 250 mL | | 20 10:25 | | mL/hr | | | IVPB 500 mg, Intravenous, | | AM PDT | | | | | Administer over 60 Minutes, | | | | | | | DAILY, First dose on 02/16/20 | | | | | | | at 0900, Activate system and mix | | | | | | | before use., Indications: | | | | | | | Community Acquired Pneumonia | | | | | | + +---------+ +--------+-------+------+ +---------+ +--------+-------+---+ | New Bag | 02/16/20 | 500 mg | 250 | | | | 20 10:18 | | mL/hr | | | | AM PDT | | | | +---------+ +--------+-------+---+ +---+---+ | | | +---+---+ + +---------+ +-----+ +---+ | calcium gluconate 1 g in sodium | New Bag | 02/16/20 | 1 g | 60 mL/hr | | | chloride 0.9% 50 mL IVPB 1 g, | | 20 6:35 | | | | | Intravenous, Administer over 60 | | AM PDT | | | | | Minutes, ONCE, 02/16/20 at | | | | | | | 0315, For 1 dose | | | | | | + +---------+ +-----+ +---+ +---+---+ | | | +---+---+ + +-------+ +---------+---+---+ | carvedilol (COREG) tablet 12.5 | Given | 02/19/20 | 12.5 mg | | | | mg 12.5 mg, Oral, 2 TIMES DAILY | | 20 8:45 | | | | | WITH BREAKFAST & DINNER, First | | AM PDT | | | | | dose (after last modification) on | | | | | | | 02/18/20 at 1700 | | | | | | + +-------+ +---------+---+---+ +-------+ +---------+---+---+ | Given | 02/18/20 | 12.5 mg | | | | | 20 5:10 | | | | | | PM PDT | | | | +-------+ +---------+---+---+ +---+---+ | | | +---+---+ + +-------+ +-------+---+---+ | carvedilol (COREG) tablet 25 mg | Given | 02/21/20 | 25 mg | | | | 25 mg, Oral, 2 TIMES DAILY WITH | | 20 8:37 | | | | | BREAKFAST & DINNER, First dose | | AM PDT | | | | | (after last modification) on Tue | | | | | | | 02/19/20 at 0945 | | | | | | + +-------+ +-------+---+---+ +-------+ +-------+---+---+ | Given | 02/20/20 | 25 mg | | | | | 20 5:25 | | | | | | PM PDT | | | | +-------+ +-------+---+---+ | Given | 02/20/20 | 25 mg | | | | | 20 9:59 | | | | | | AM PDT | | | | +-------+ +-------+---+---+ +---+---+ | | | +---+---+ + +-------+ +---------+---+---+ | carvedilol (COREG) tablet 6.25 | Given | 02/18/20 | 6.25 mg | | | | mg 6.25 mg, Oral, 2 TIMES DAILY | | 20 10:50 | | | | | WITH BREAKFAST & DINNER, First | | AM PDT | | | | | dose on 02/18/20 at 1000 | | | | | | + +-------+ +---------+---+---+ +---+---+ | | | +---+---+ + +---------+ +-----+-------+---+ | cefTRIAXone (ROCEPHIN) 1 g in | New Bag | 02/17/20 | 1 g | 100 | | | sodium chloride 0.9% 50 mL IVPB | | 20 9:15 | | mL/hr | | | 1 g, Intravenous, Administer over | | AM PDT | | | | | 30 Minutes, EVERY 24 HOURS | | | | | | | (Daily), First dose on Sat | | | | | | | 02/16/20 at 0900, Activate system | | | | | | | and mix before use., Indications: | | | | | | | Community Acquired Pneumonia | | | | | | + +---------+ +-----+-------+---+ +---------+ +-----+-------+---+ | New Bag | 02/16/20 | 1 g | 100 | | | | 20 8:55 | | mL/hr | | | | AM PDT | | | | +---------+ +-----+-------+---+ +---+---+ | | | +---+---+ + +---------+ +--------+-------+---+ | ciprofloxacin in dextrose | New Bag | 02/21/20 | 400 mg | 200 | | | (CIPRO) IVPB 400 mg 400 mg, | | 20 10:56 | | mL/hr | | | Intravenous, Administer over 1 | | AM PDT | | | | | Hours, EVERY 24 HOURS (Daily), | | | | | | | First dose (after last | | | | | | | modification) on Tue02/20/20 at | | | | | | | 1345, Indications: PURULENT SKIN | | | | | | | AND SOFT TISSUE INFECTION | | | | | | + +---------+ +--------+-------+---+ +---------+ +--------+-------+---+ | New Bag | 02/20/20 | 400 mg | 200 | | | | 20 1:54 | | mL/hr | | | | PM PDT | | | | +---------+ +--------+-------+---+ + +---+ | | | + +---+ | dextrose 10% (D10W) infusion | | | at 50 mL/hr, Intravenous, | | | CONTINUOUS PRN, hypoglycemia, | | | Starting 02/16/20 at 0002, | | | Start infusion if unable to | | | maintain blood glucose greater | | | than 70 mg/dL after two rounds of | | | hypoglycemia treatment. Recheck | | | blood glucose 30 minutes after | | | starting D10W then at least | | | hourly and PRN until it is | | | discontinued. Call provider to | | | discuss parameters for D10W | | | discontinuation., | | + +---+ | | | + +---+ + +---------+ +---+ +---+ | dextrose 10% (D10W) infusion | New Bag | 02/18/20 | | 50 mL/hr | | | at 50 mL/hr, Intravenous, | | 20 1:22 | | | | | CONTINUOUS, Starting 02/18/20 | | PM PDT | | | | | at 1245 | | | | | | + +---------+ +---+ +---+ +---+---+ | | | +---+---+ + + + +---+ +---+ | dextrose 5% (D5W) 1,000 mL with | Rate/Dos | 02/18/20 | | 40 mL/hr | | | sodium bicarbonate 100 mEq | e Change | 20 7:47 | | | | | infusion at 40 mL/hr, | | AM PDT | | | | | Intravenous, CONTINUOUS, Starting | | | | | | | 02/17/20 at 1300, Start when | | | | | | | current IV solution's run out at | | | | | | | approximately 1 PM today, | | | | | | + + + +---+ +---+ + + +---+-------+---+ | Rate/Dose Change | 02/17/20 | | 100 | | | | 20 10:19 | | mL/hr | | | | PM PDT | | | | + + +---+-------+---+ | New Bag | 02/17/20 | | 150 | | | | 20 3:16 | | mL/hr | | | | PM PDT | | | | + + +---+-------+---+ +---+---+ | | | +---+---+ + +---------+ +---+ +---+ | dextrose 5% (D5W) 1,000 mL with | New Bag | 02/16/20 | | 75 mL/hr | | | sodium bicarbonate 150 mEq | | 20 10:29 | | | | | infusion at 75 mL/hr, | | PM PDT | | | | | Intravenous, CONTINUOUS, Starting | | | | | | | 02/16/20 at 0015 | | | | | | + +---------+ +---+ +---+ + + +---+ +---+ | Rate/Dose Change | 02/16/20 | | 75 mL/hr | | | | 20 11:56 | | | | | | AM PDT | | | | + + +---+ +---+ | New Bag | 02/16/20 | | 100 | | | | 20 1:31 | | mL/hr | | | | AM PDT | | | | + + +---+ +---+ +---+---+ | | | +---+---+ + +---------+ +---+ +---+ | dextrose 5% (D5W) infusion at | New Bag | 02/17/20 | | 75 mL/hr | | | 75 mL/hr, Intravenous, | | 20 9:13 | | | | | CONTINUOUS, Starting 02/17/20 | | AM PDT | | | | | at 0915, Run until D5W with 150 | | | | | | | mEq bicarb drip is complete at | | | | | | | around 1300, then stop., | | | | | | + +---------+ +---+ +---+ +---+---+ | | | +---+---+ + +-------+ +--------+---+---+ | dextrose 50% injection 12.5-25 | Given | 02/18/20 | 12.5 g | | | | g 12.5-25 g, Intravenous, PRN, | | 20 10:35 | | | | | Low Blood Sugar, Starting Sat | | AM PDT | | | | | 02/16/20 at 0002, For blood | | | | | | | glucose 50-69 mg/dl - give 12.5 g | | | | | | | For blood glucose less than 50 | | | | | | | mg/dl - give 25 g, | | | | | | + +-------+ +--------+---+---+ +-------+ +--------+---+---+ | Given | 02/18/20 | 12.5 g | | | | | 20 6:51 | | | | | | AM PDT | | | | +-------+ +--------+---+---+ +---+---+ | | | +---+---+ + +-------+ +------+---+---+ | dextrose 50% injection 25 g 25 | Given | 02/16/20 | 25 g | | | | g, Intravenous, ONCE, Sat | | 20 3:42 | | | | | 02/16/20 at 0300, For 1 dose | | AM PDT | | | | + +-------+ +------+---+---+ +---+---+ | | | +---+---+ + +-------+ +---------+---+ + | epoetin sary-epbx (RETACRIT) | Given | 02/18/20 | 10,000 | | Abdomen- | | 10,000 units/mL injection 10,000 | | 20 11:49 | Units | | LLQ | | Units 10,000 Units, | | PM PDT | | | | | Subcutaneous, TWICE WEEKLY, First | | | | | | | dose on 02/18/20 at 2100, | | | | | | | Keep in refrigerator. Do not | | | | | | | shake., ESRD-related (i.e. | | | | | | | dialysis) indication? No | | | | | | + +-------+ +---------+---+ + +---+---+ | | | +---+---+ + +---------+ +--------+-------+---+ | ferric gluconate (FERRLECIT) | New Bag | 02/20/20 | 125 mg | 110 | | | 125 mg in sodium chloride 0.9% | | 20 9:53 | | mL/hr | | | 100 mL IVPB 125 mg, Intravenous, | | PM PDT | | | | | Administer over 1 Hours, DAILY, | | | | | | | First dose on 02/16/20 at | | | | | | | 2100, For 8 days | | | | | | + +---------+ +--------+-------+---+ +---------+ +--------+-------+---+ | New Bag | 02/19/20 | 125 mg | 110 | | | | 20 10:16 | | mL/hr | | | | PM PDT | | | | +---------+ +--------+-------+---+ | New Bag | 02/18/20 | 125 mg | 110 | | | | 20 9:40 | | mL/hr | | | | PM PDT | | | | +---------+ +--------+-------+---+ +---+---+ | | | +---+---+ + +-------+ +---------+---+---+ | fludrocortisone (FLORINEF) | Given | 02/19/20 | 0.05 mg | | | | tablet 0.05 mg 0.05 mg, Oral, | | 20 8:46 | | | | | DAILY, First dose on 02/16/20 | | AM PDT | | | | | at 1230 | | | | | | + +-------+ +---------+---+---+ +-------+ +---------+---+---+ | Given | 02/18/20 | 0.05 mg | | | | | 20 8:15 | | | | | | AM PDT | | | | +-------+ +---------+---+---+ | Given | 02/17/20 | 0.05 mg | | | | | 20 9:22 | | | | | | AM PDT | | | | +-------+ +---------+---+---+ +---+---+ | | | +---+---+ + +-------+ +-------+---+---+ | furosemide (LASIX) injection 80 | Given | 02/16/20 | 80 mg | | | | mg 80 mg, Intravenous, ONCE, | | 20 12:46 | | | | | 02/16/20 at 1300, For 1 dose | | PM PDT | | | | + +-------+ +-------+---+---+ +---+---+ | | | +---+---+ + +-------+ +--------+---+---+ | furosemide (LASIX) tablet 160 | Given | 02/20/20 | 160 mg | | | | mg 160 mg, Oral, 2 TIMES DAILY | | 20 5:24 | | | | | 0800 & 1600, First dose (after | | PM PDT | | | | | last modification) on Tue02/19/20 | | | | | | | at 1600 | | | | | | + +-------+ +--------+---+---+ +-------+ +--------+---+---+ | Given | 02/20/20 | 160 mg | | | | | 20 9:58 | | | | | | AM PDT | | | | +-------+ +--------+---+---+ | Given | 02/19/20 | 160 mg | | | | | 20 5:41 | | | | | | PM PDT | | | | +-------+ +--------+---+---+ +---+---+ | | | +---+---+ + +-------+ +-------+---+---+ | furosemide (LASIX) tablet 80 mg | Given | 02/19/20 | 80 mg | | | | 80 mg, Oral, 2 TIMES DAILY 0800 | | 20 8:45 | | | | | & 1600, First dose on Mon | | AM PDT | | | | | 02/18/20 at 1000 | | | | | | + +-------+ +-------+---+---+ +-------+ +-------+---+---+ | Given | 02/18/20 | 80 mg | | | | | 20 5:10 | | | | | | PM PDT | | | | +-------+ +-------+---+---+ | Given | 02/18/20 | 80 mg | | | | | 20 10:50 | | | | | | AM PDT | | | | +-------+ +-------+---+---+ +---+---+ | | | +---+---+ + +-------+ +-------+---+---+ | furosemide (LASIX) tablet 80 mg | Given | 02/21/20 | 80 mg | | | | 80 mg, Oral, 2 TIMES DAILY 0800 | | 20 8:36 | | | | | & 1600, First dose (after last | | AM PDT | | | | | modification) on Tatiana 02/21/20 at | | | | | | | 0800 | | | | | | + +-------+ +-------+---+---+ +---+---+ | | | +---+---+ + +-------+ +--------+---+ + | heparin 5,000 units/mL | Given | 02/18/20 | 5,000 | | Abdomen- | | injection 5,000 Units 5,000 | | 20 8:14 | Units | | RUQ | | Units, Subcutaneous, EVERY 12 | | AM PDT | | | | | HOURS (2 times per day), First | | | | | | | dose on 02/16/20 at 0115 | | | | | | + +-------+ +--------+---+ + +-------+ +--------+---+ + | Given | 02/17/20 | 5,000 | | Abdomen- | | | 20 8:56 | Units | | LUQ | | | PM PDT | | | | +-------+ +--------+---+ + | Given | 02/17/20 | 5,000 | | Abdomen- | | | 20 9:21 | Units | | RLQ | | | AM PDT | | | | +-------+ +--------+---+ + +---+---+ | | | +---+---+ + +-------+ + +---+---+ | HYDROcodone-acetaminophen | Given | 02/17/20 | 1 tablet | | | | (NORCO) 10-325 mg per tablet 1 | | 20 1:47 | | | | | tablet 1 tablet, Oral, EVERY 6 | | PM PDT | | | | | HOURS PRN, Pain, Starting Sat | | | | | | | 02/16/20 at 0129 | | | | | | + +-------+ + +---+---+ +-------+ + +---+---+ | Given | 02/17/20 | 1 tablet | | | | | 20 4:28 | | | | | | AM PDT | | | | +-------+ + +---+---+ | Given | 02/16/20 | 1 tablet | | | | | 20 7:10 | | | | | | PM PDT | | | | +-------+ + +---+---+ +---+---+ | | | +---+---+ + +-------+ + +---+---+ | HYDROcodone-acetaminophen | Given | 02/21/20 | 1 tablet | | | | (NORCO) 7.5-325 mg per tablet 1 | | 20 12:49 | | | | | tablet 1 tablet, Oral, EVERY 6 | | PM PDT | | | | | HOURS PRN, Moderate Pain, | | | | | | | Starting 02/17/20 at 1457 | | | | | | + +-------+ + +---+---+ +-------+ + +---+---+ | Given | 02/21/20 | 1 tablet | | | | | 20 5:42 | | | | | | AM PDT | | | | +-------+ + +---+---+ | Given | 02/20/20 | 1 tablet | | | | | 20 9:59 | | | | | | PM PDT | | | | +-------+ + +---+---+ +---+---+ | | | +---+---+ + +-------+ +--------+---+---+ | HYDROmorphone (DILAUDID) | Given | 02/17/20 | 0.5 mg | | | | injection 0.5 mg 0.5 mg, | | 20 11:43 | | | | | Intravenous, ONCE, 02/17/20 at | | AM PDT | | | | | 1030, For 1 dose | | | | | | + +-------+ +--------+---+---+ +---+---+ | | | +---+---+ + +-------+ + +---+ + | insulin glargine (LANTUS | Given | 02/21/20 | 10 Units | | Arm-Righ | | SOLOSTAR) injection (pen) 10 | | 20 8:42 | | | t Upper | | Units 10 Units, Subcutaneous, | | AM PDT | | | | | EVERY 12 HOURS (2 times per day), | | | | | | | First dose on 02/16/20 at | | | | | | | 1000, For subcutaneous use only. | | | | | | | Basal (long acting) insulin., If | | | | | | | NPO: Decrease dose, by: 50% | | | | | | + +-------+ + +---+ + +-------+ + +---+ + | Given | 02/20/20 | 5 Units | | Arm-Left | | | 20 10:49 | | | Upper | | | AM PDT | | | | +-------+ + +---+ + | Given | 02/19/20 | 10 Units | | Arm-Righ | | | 20 8:54 | | | t Upper | | | AM PDT | | | | +-------+ + +---+ + +---+---+ | | | +---+---+ + +-------+ +---------+---+ + | insulin lispro (humaLOG | Given | 02/21/20 | 4 Units | | Arm-Righ | | KWIKPEN) injection (pen) 0-12 | | 20 8:42 | | | t Upper | | Units 0-12 Units, Subcutaneous, | | AM PDT | | | | | 4 TIMES DAILY WITH MEALS & | | | | | | | NIGHTLY, First dose on Sat | | | | | | | 02/16/20 at 1200, CORRECTION | | | | | | | SCALE: Blood Glucose (BG) < | | | | | | | 150: None BG | | | | | | | 150-200: DAY: 2 units. NIGHT: | | | | | | | 0 units BG 201-250: DAY: 4 | | | | | | | units. NIGHT: 2 units BG | | | | | | | 251-300: DAY: 6 units. NIGHT: | | | | | | | 4 units BG 301-350: DAY: 8 | | | | | | | units. NIGHT: 6 units BG | | | | | | | 351-400: DAY: 10 units. NIGHT: 8 | | | | | | | units BG > 400 : DAY: 12 | | | | | | | units. NIGHT: 10 units | | | | | | | AND CALL PROVIDER | | | | | | | , Use DAY DOSE for doses | | | | | | | scheduled: AC, NPO, Daytime | | | | | | | 0272-1127 Use NIGHT DOSE for | | | | | | | doses scheduled: HS, | | | | | | | Nighttime [id number] If the BG is | | | | | | | not checked before the patient | | | | | | | starts eating, do not give | | | | | | | correction insulin., | | | | | | + +-------+ +---------+---+ + +-------+ +---------+---+ + | Given | 02/20/20 | 2 Units | | Arm-Righ | | | 20 12:42 | | | t Upper | | | PM PDT | | | | +-------+ +---------+---+ + | Given | 02/19/20 | 6 Units | | Arm-Righ | | | 20 12:29 | | | t Upper | | | PM PDT | | | | +-------+ +---------+---+ + +---+---+ | | | +---+---+ + +-------+ +---------+---+ + | insulin lispro (humaLOG | Given | 02/16/20 | 3 Units | | Arm-Left | | KWIKPEN) injection (pen) 0-6 | | 20 9:05 | | | Upper | | Units 0-6 Units, Subcutaneous, 4 | | AM PDT | | | | | TIMES DAILY WITH MEALS & | | | | | | | NIGHTLY, First dose on Sat | | | | | | | 02/16/20 at 0800, CORRECTION | | | | | | | SCALE: Blood Glucose (BG) < | | | | | | | 150: None BG | | | | | | | 150-200: DAY: 1 units. NIGHT: 0 | | | | | | | units BG 201-250: DAY: 2 units. | | | | | | | NIGHT: 1 units BG 251-300: | | | | | | | DAY: 3 units. NIGHT: 2 units | | | | | | | BG 301-350: DAY: 4 units. NIGHT: | | | | | | | 3 units BG 351-400: DAY: 5 | | | | | | | units. NIGHT: 4 units BG > | | | | | | | 400 : DAY: 6 units. NIGHT: 5 | | | | | | | units | | | | | | | AND CALL PROVIDER Use DAY DOSE | | | | | | | for doses scheduled: AC, | | | | | | | NPO, Daytime [phone] Use NIGHT | | | | | | | DOSE for doses scheduled: | | | | | | | HS, Nighttime [phone] If the | | | | | | | BG is not checked before the | | | | | | | patient starts eating, do not | | | | | | | give correction insulin., | | | | | | + +-------+ +---------+---+ + +---+---+ | | | +---+---+ + +-------+ + +---+ + | insulin lispro (humaLOG | Given | 02/16/20 | 10 Units | | Abdomen- | | KWIKPEN) injection (pen) 10 Units | | 20 3:42 | | | LLQ | | 10 Units, Subcutaneous, ONCE, | | AM PDT | | | | | 02/16/20 at 0300, For 1 dose | | | | | | + +-------+ + +---+ + +---+---+ | | | +---+---+ + +-------+ +---------+---+---+ | lactobacillus GG (CULTURELLE) | Given | 02/21/20 | 1 | | | | capsule 1 capsule 1 capsule, | | 20 8:37 | capsule | | | | Oral, 2 TIMES DAILY, First dose | | AM PDT | | | | | on 02/16/20 at 0900, Do not | | | | | | | open or crush., | | | | | | + +-------+ +---------+---+---+ +-------+ +---------+---+---+ | Given | 02/20/20 | 1 | | | | | 20 9:59 | capsule | | | | | PM PDT | | | | +-------+ +---------+---+---+ | Given | 02/20/20 | 1 | | | | | 20 9:56 | capsule | | | | | AM PDT | | | | +-------+ +---------+---+---+ +---+---+ | | | +---+---+ + +-------+ +---+---+---+ | lanolin (SEI-D-KSHTUZ) cream | Given | 02/21/20 | | | | | Topical, 2 TIMES DAILY, First | | 20 10:56 | | | | | dose on 02/17/20 at 1530, For | | AM PDT | | | | | 7 days, BID, (Scheduled)-- to | | | | | | | both legs, for Dry skin. Please | | | | | | | apply to Pt. Thanks!, Apply to: | | | | | | | Leg-Left Upper, Leg-Right Upper | | | | | | + +-------+ +---+---+---+ +-------+ +---+---+---+ | Given | 02/20/20 | | | | | | 20 10:03 | | | | | | PM PDT | | | | +-------+ +---+---+---+ | Given | 02/20/20 | | | | | | 20 12:40 | | | | | | PM PDT | | | | +-------+ +---+---+---+ +---+---+ | | | +---+---+ + +-------+ +------+---+---+ | loperamide (IMODIUM) capsule 2 | Given | 02/21/20 | 2 mg | | | | mg 2 mg, Oral, 4 TIMES DAILY, | | 20 12:49 | | | | | First dose on 02/17/20 at | | PM PDT | | | | | 1530, (Scheduled)-- Hold if he | | | | | | | becomes constipated. Thanks., | | | | | | + +-------+ +------+---+---+ +-------+ +------+---+---+ | Given | 02/21/20 | 2 mg | | | | | 20 8:36 | | | | | | AM PDT | | | | +-------+ +------+---+---+ | Given | 02/20/20 | 2 mg | | | | | 20 11:02 | | | | | | PM PDT | | | | +-------+ +------+---+---+ +---+---+ | | | +---+---+ + +---------+ +--------+-------+---+ | meropenem (MERREM) 500 mg in | New Bag | 02/20/20 | 500 mg | 100 | | | sodium chloride 0.9% 50 mL IVPB | | 20 9:57 | | mL/hr | | | 500 mg, Intravenous, Administer | | AM PDT | | | | | over 30 Minutes, 2 TIMES DAILY, | | | | | | | First dose on 02/17/20 at | | | | | | | 2100, For 7 days, Activate system | | | | | | | and mix before use., | | | | | | | 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 | | | | | | + +---------+ +--------+-------+---+ +---------+ +--------+-------+---+ | New Bag | 02/19/20 | 500 mg | 100 | | | | 20 9:27 | | mL/hr | | | | PM PDT | | | | +---------+ +--------+-------+---+ | New Bag | 02/19/20 | 500 mg | 100 | | | | 20 8:46 | | mL/hr | | | | AM PDT | | | | +---------+ +--------+-------+---+ +---+---+ | | | +---+---+ + +-------+ +------+---+---+ | metoclopramide (REGLAN) tablet | Given | 02/17/20 | 5 mg | | | | 5 mg 5 mg, Oral, 2 TIMES DAILY, | | 20 9:22 | | | | | First dose on 02/16/20 at 0045 | | AM PDT | | | | + +-------+ +------+---+---+ +-------+ +------+---+---+ | Given | 02/16/20 | 5 mg | | | | | 20 8:21 | | | | | | PM PDT | | | | +-------+ +------+---+---+ | Given | 02/16/20 | 5 mg | | | | | 20 8:56 | | | | | | AM PDT | | | | +-------+ +------+---+---+ +---+---+ | | | +---+---+ + +-------+ + +---+---+ | nystatin (MYCOSTATIN) 100,000 | Given | 02/21/20 | 500,000 | | | | units/mL suspension 500,000 Units | | 20 12:49 | Units | | | | 500,000 Units, Swish & Swallow, | | PM PDT | | | | | 4 TIMES DAILY, First dose on Sat | | | | | | | 02/16/20 at 0900, For 10 days, | | | | | | | Shake well., Indications: | | | | | | | Oropharyngeal Candidiasis | | | | | | + +-------+ + +---+---+ +-------+ + +---+---+ | Given | 02/21/20 | 500,000 | | | | | 20 8:37 | Units | | | | | AM PDT | | | | +-------+ + +---+---+ | Given | 02/20/20 | 500,000 | | | | | 20 9:59 | Units | | | | | PM PDT | | | | +-------+ + +---+---+ +---+---+ | | | +---+---+ + +-------+ +------+---+---+ | ondansetron (ZOFRAN ODT) | Given | 02/21/20 | 4 mg | | | | disintegrating tablet 4 mg 4 mg, | | 20 8:35 | | | | | Oral, EVERY 6 HOURS PRN, Nausea, | | AM PDT | | | | | Vomiting, Starting 02/15/20 | | | | | | | at 2348, First line agent, | | | | | | + +-------+ +------+---+---+ +-------+ +------+---+---+ | Given | 02/18/20 | 4 mg | | | | | 20 9:36 | | | | | | PM PDT | | | | +-------+ +------+---+---+ +---+---+ | | | +---+---+ + +-------+ + +---+---+ | 27-0.8 mg multivitamin | Given | 02/21/20 | 1 tablet | | | | 1 tablet 1 tablet, Oral, DAILY, | | 20 8:37 | | | | | First dose on 02/17/20 at | | AM PDT | | | | | 0900 | | | | | | + +-------+ + +---+---+ +-------+ + +---+---+ | Given | 02/20/20 | 1 tablet | | | | | 20 9:56 | | | | | | AM PDT | | | | +-------+ + +---+---+ | Given | 02/19/20 | 1 tablet | | | | | 20 8:45 | | | | | | AM PDT | | | | +-------+ + +---+---+ +---+---+ | | | +---+---+ + +-------+ +-------+---+---+ | sertraline (ZOLOFT) tablet 50 | Given | 02/21/20 | 50 mg | | | | mg 50 mg, Oral, DAILY, First | | 20 8:37 | | | | | dose on 02/17/20 at 1515 | | AM PDT | | | | + +-------+ +-------+---+---+ +-------+ +-------+---+---+ | Given | 02/20/20 | 50 mg | | | | | 20 9:56 | | | | | | AM PDT | | | | +-------+ +-------+---+---+ | Given | 02/19/20 | 50 mg | | | | | 20 8:45 | | | | | | AM PDT | | | | +-------+ +-------+---+---+ +---+---+ | | | +---+---+ + +---------+ +---+ +---+ | sodium chloride 0.9% (NS) | New Bag | 02/17/20 | | 75 mL/hr | | | infusion at 75 mL/hr, | | 20 2:17 | | | | | Intravenous, CONTINUOUS, Starting | | AM PDT | | | | | 02/16/20 at 1215, Please run | | | | | | | continuous for now., | | | | | | + +---------+ +---+ +---+ +---------+ +---+ +---+ | New Bag | 02/16/20 | | 75 mL/hr | | | | 20 12:30 | | | | | | PM PDT | | | | +---------+ +---+ +---+ +---+---+ | | | +---+---+ + +-------+ +--------+---+---+ | sodium citrate-citric acid | Given | 02/21/20 | 30 mLs | | | | (BICITRA) liquid 30 mL 30 mL, | | 20 8:36 | | | | | Oral, 2 TIMES DAILY, First dose | | AM PDT | | | | | on 02/16/20 at 1300, Dilute in | | | | | | | 1 to 3 ounces diet soda, prior | | | | | | | to administration., | | | | | | + +-------+ +--------+---+---+ +-------+ +--------+---+---+ | Given | 02/20/20 | 30 mLs | | | | | 20 9:59 | | | | | | PM PDT | | | | +-------+ +--------+---+---+ | Given | 02/20/20 | 30 mLs | | | | | 20 9:56 | | | | | | AM PDT | | | | +-------+ +--------+---+---+ +---+---+ | | | +---+---+ + +-------+ +------+---+---+ | sodium polystyrene (KAYEXALATE) | Given | 02/16/20 | 30 g | | | | 15 g/60 mL suspension 30 g 30 | | 20 8:57 | | | | | g, Oral, ONCE, 02/16/20 at | | AM PDT | | | | | 0845, For 1 dose, Shake well. Do | | | | | | | not mix in orange juice. For | | | | | | | oral/enteral routes: separate | | | | | | | administration from other oral | | | | | | | medications by at least 3 hours., | | | | | | | | | | | | | + +-------+ +------+---+---+ +---+---+ | | | +---+---+ + +-------+ +------+---+---+ | sodium polystyrene (KAYEXALATE) | Given | 02/16/20 | 30 g | | | | 15 g/60 mL suspension 30 g 30 | | 20 10:48 | | | | | g, Oral, ONCE, 02/16/20 at | | AM PDT | | | | | 1000, For 1 dose, Shake well. Do | | | | | | | not mix in orange juice. For | | | | | | | oral/enteral routes: separate | | | | | | | administration from other oral | | | | | | | medications by at least 3 hours., | | | | | | | | | | | | | + +-------+ +------+---+---+ +---+---+ | | | +---+---+ + +-------+ +--------+---+---+ | vancomycin (FIRVANQ) 50 mg/mL | Given | 02/20/20 | 125 mg | | | | liquid 125 mg 125 mg, Oral, | | 20 7:24 | | | | | EVERY 6 HOURS (4 times per day), | | AM PDT | | | | | First dose on 02/18/20 at | | | | | | | 0800, Shake well. Keep in | | | | | | | refrigerator., Indications: | | | | | | | Clostridium difficile | | | | | | + +-------+ +--------+---+---+ +-------+ +--------+---+---+ | Given | 02/19/20 | 125 mg | | | | | 20 11:53 | | | | | | PM PDT | | | | +-------+ +--------+---+---+ | Given | 02/19/20 | 125 mg | | | | | 20 5:42 | | | | | | PM PDT | | | | +-------+ +--------+---+---+ +---+---+ | | | +---+---+ + +-------+ +--------+---+---+ | vancomycin (FIRVANQ) 50 mg/mL | Given | 02/21/20 | 125 mg | | | | liquid 125 mg 125 mg, Oral, | | 20 10:55 | | | | | EVERY 12 HOURS (2 times per day), | | AM PDT | | | | | First dose (after last | | | | | | | modification) on Tue02/20/20 at | | | | | | | 2100, Shake well. Keep in | | | | | | | refrigerator., Indications: | | | | | | | Clostridium difficile, | | | | | | | Prophylaxis | | | | | | + +-------+ +--------+---+---+ +-------+ +--------+---+---+ | Given | 02/20/20 | 125 mg | | | | | 20 11:02 | | | | | | PM PDT | | | | +-------+ +--------+---+---+ +---+---+ | | | +---+---+ documented in this encounter Additional Health Concerns + + + + | Infection | Noted Time | Resolved Time | + + + + | Rule out COVID-19 | 02/16/2020 1:07 AM | 02/16/2020 2:16 AM | | | PDT | PDT | + + + + | Rule out C. Difficile | 02/16/2020 2:34 PM | 02/16/2020 7:17 PM | | | PDT | PDT | + + + + | Clostridium difficile | 02/16/2020 7:17 PM | 02/17/2020 3:40 PM | | | PDT | PDT | + + + + documented as of this encounter
--- OUTSIDE RECORDS SUMMARY | ~2020-03-21 | XMS | Encounter Summary ---
Demographics + + + | Address | [address] | | | [place] [address] | + + + | Home Phone | | + + + | Preferred Language | Unknown | + + + | Marital Status | Single | + + + | Presybeterian Affiliation | NON | + + + | Race | White | + + + | Ethnic Group | Not or | + + + Author + + + | Author | [facility] | + + + | Organization | [facility] | + + + | Address | Unknown | + + + | Phone | Unavailable | + + + Support + + + + + | Name | Relationship | Address | Phone | + + + + + | Samantha Ramos | ECON | [address] # | | | | | [place] | | | | | [address] | | + + + + + Care Team Providers + +------+ + | Care Ceramic Coater Machine Name | Role | Phone | + +------+ + | Erich Yates PA-C | PCP | | + +------+ + Encounter Details +--------+ + + + + | Date | Type | Department | Care Team | Description | +--------+ + + + + | 08/27/ | Ancillary | Registration [address] | Ashanti Roque, | | | 2004 | Registratio | [address] | [address] | | | | n | Perez Mailcode: [id number] | [address] | | | | | [place], [place] | [place], [place] | | | | | [address] | [address] | | | | | [phone] | [phone] | | | | | | | [...] | + +--------+ + + + | FREE T4 | Routin | 08/27/2005 | | Results for this | | | e | 2:45 PM | | procedure are in the | | | | PST | | results section. | + +--------+ + + + | TSH | Routin | 08/27/2005 | | Results for this | | | e | 2:45 PM | | procedure are in the | | | | PST | | results section. | + +--------+ + + + documented in this encounter Results FREE T4, SERUM (08/27/2005 2:45 PM PST) + + + + + + | Component | Value | Ref Range | Performed | Pathologist | | | | | At | Signature | + + + + + + | FREE T4, | 1.1Comment: Test | 0.7 - 1.8 ng/dL | | | | SERUM | performed by [facility] | | | | | [facility] | | | | | | [facility]. | | | | + + + + + + + + | Specimen | + + | | + + + + + + + | Performing | Address | City/State/Zipcode | Phone Number | | Organization | | | | + + + + + | [facility] | [address] | [place] [address] | | | LABORATORY | | | | + + + + + TSH-THYROID STIM HORMONE (08/27/2005 2:45 PM PST) + + + + + + | Component | Value | Ref Range | Performed | Pathologist | | | | | At | Signature | + + + + + + | TSH | 0.61Comment: Test | 0.28 - 5.00 | | | | | performed by René | Loy/maurizio | | | | | Louis Tolentino | | | | | | Danii. | | | | + + + + + + + + | Specimen | + + | | + + + + + + + | Performing | Address | City/State/Zipcode | Phone Number | | Organization | | | | + + + + + | [facility] | [address] | [place] [address] | | | LABORATORY | | | | + + + + + documented in this encounter Visit Diagnoses Not on filedocumented in this encounter"
--- OUTSIDE RECORDS SUMMARY | ~2020-03-21 | XMS | Encounter Summary ---
Demographics + + + | Address | [address] | | | [place] [address] | + + + | Home Phone | | + + + | Preferred Language | Unknown | + + + | Marital Status | Single | + + + | Jainism Affiliation | NON | + + + | Race | White | + + + | Ethnic Group | Not or | + + + Author + + + | Author | [facility] | + + + | Organization | [facility] | + + + | Address | Unknown | + + + | Phone | Unavailable | + + + Support + + + + + | Name | Relationship | Address | Phone | + + + + + | Samantha Ramos | ECON | [address] # | | | | | [place] | | | | | [address] | | + + + + + Care Team Providers + +------+ + | Care Plant Controller Name | Role | Phone | + +------+ + | Neri Mojica MD | PCP | | + +------+ + Reason for Visit Benefits Check (Routine) +--------+--------+ + + + + | Status | Reason | Specialty | Diagnoses / | Referred By | Referred To | | | | | Procedures | Contact | Contact | +--------+--------+ + + + + | Closed | | Pediatric | | [place] | Sharath | | | | Endocrinology | | Neri Reynoso MD | Endocrinology | | | | | | [place] | [facility] [address] | | | | | | CLINIC | [place] | | | | | | [facility] | [place] | | | | | | BUILDING | [place], [place] | | | | | | [address] | [address] | | | | | | [address] | Phone: | | | | | | [place], | [phone] | | | | | | [place] [address] | Fax: | | | | | | Phone: | [phone] | | | | | | [phone] | | | | | | | Fax: | | | | | | | [phone] | | +--------+--------+ + + + + Encounter Details +--------+ + + + + | Date | Type | Department | Care Team | Description | +--------+ + + + + | 11/02/ | Office | Pediatric | Ashanti Roque, | Progress Note | | 2006 | Visit-ECX | Endocrinology at | [address] | | | | | [place] | [address] | | | | | [facility] | [place], [place] | | | | | [address] | [address] | | | | | [place] | [phone] | | | | | [place], [place] | | | | | | [address] | | | | | | [phone] | | | +--------+ + + + [...] as of this encounter Progress Notes Interface, Attorney At Law In - 12/15/2006 6:28 AM JOHNNY [id number] NAHOMY Durbin [id number] Clinic Date: 11/02/2006 Clinic: Pediatric Endocrinology Problem List: 1. Type 1 diabetes, diagnosed in April 2002. 2. Elevated HbA1c, currently 11.2%. 3. Current insulin therapy: Lantus H 5 units in the morning, Humalog administered by pen 1 unit for 10 g of carbohydrates at breakfast, lunch, dinner, and snacks. Correction factor of 1 unit for every 50 the blood sugars above 200. Identifying Data: Brooks is a 16-year-old boy who attends my clinic today for followup of his type 1 diabetes. He was last seen just over a year ago in August 2005. Interval History: Brooks is now living mainly with his father, and only seeing his mother every other weekend. For the first time, I met father in clinic today along with his new and Brooks's brother and younger sister. Brooks has had no hospitalizations since I last saw him over a year ago. However, his elevated HbA1c suggests that he continues to have poor compliance, and he readily admits that he does miss some of his shots, particularly at lunchtime. His current diabetes routine is to take Lantus H 5 units in the morning and then to take Humalog with breakfast, lunch, dinner, and snacks at a carb to insulin ratio with a correction factor as detailed above. His injections are supervised by his stepmother and father in the morning before they go to work, at lunchtime he comes home from school for lunch, but admits he sometimes does not have time or forgets to take his insulin shots at lunch. At dinnertime, he has a home cooked meal, and he takes Humalog at that stage. Before bed, he is supposed to take a bedtime snack and usually does. He also snacks in between meals, and admits he sometimes does not cover this with insulin. He did not bring his meter or any recent blood sugar records to clinic today. The family stated they had left the meter in the truck, and it was too far for them to go to collect it. Brooks states that his blood sugars have generally been in the low 200s, most of the time that he tests. Recently, there was a period when they were even higher after he had surgery to his elbow in September 2006, but they have now improved. The family has not called us at all since we last saw them. Brooks has had a very few lows, although about 6 months ago he went through a period when he had lows in the mornings for around 4 or 5 days associated with an increase in physical activity during the day. Brooks administers his own insulin shots into his abdomen, particularly preferring the left side which he admits is getting a little lumpy. He admits to testing his blood sugars 2 to 3 times per day, although I have no meter records to verify this. He generally tests his blood sugar at lunch and before bed. Review of Systems: Full review of systems was otherwise negative. Family and Social History: Detailed above. Brooks now lives mainly with his father and stepmother and siblings. He is still at high school in the melvina year, and plans that he leaves high school to go to technical school of some sort. Medications: Insulin as detailed above. He was on Vicodin, but now he is off it following his elbow surgery. Physical Examination: Brooks is a well-looking and well-grown young man who is in no apparent distress. His height is 181.5 cm which is just above the 75th percentile and is an increase from his previous visit ( ) along the 75th percentile line. His weight is 84.3 kg, this has also increased appropriately since his last visit, and it is between the 90th and the 97th percentile. Neck: Supple with no thyromegaly. There is [...] on the left side. Assessment: Brooks is a 16-year-old boy with type 1 diabetes who has been under poor control ever since I first met him 2 years ago. The family has not attended clinic on a regular basis. The only improvement from when I last saw him is he has not needed any hospitalization for diabetic ketoacidosis which was a problem before he attended our clinic. Plan: 1. I have recommended that Brooks increase his insulin dose to 19 units of Lantus every morning and a carb to insulin ratio of 1 unit for every 7.5 g of carbohydrate consumed. I have encouraged the family again to make sure that he does receive his insulin doses. At lunchtime, he is at home with his brother as he comes home from school, and I recommended that his brother try and make sure that he does take his insulin and check his blood sugar at lunch. 2. I have given the family a record sheet and asked them to fill out his blood sugars for the next week, including testing his blood sugars at 2 in the morning while we increase his insulin dose. I have asked them to fax me this in 1 week's time to see how this adjustment in insulin has affected his blood sugars. My guess is that he does need more insulin as he has grown, although clearly some of his problems are with poor compliance. 3. I have recommended to Brooks that he will take his injection sites away from his abdomen and particularly when he takes his morning shot, he use an another site. 4. I have recommended that Brooks be followed up in our clinic in 4 months' time. 5. I have checked the UA and microalbumin today. 6. I have also recommended to his family that Brooks have yearly ophthalmologic assessments to evaluate him for retinopathy. They state that he did have an ophthalmologic appointment but cannot remember when this was. 7. I will be in contact with the family when I have received the results of his blood sugars over the next week to make further adjustments to his insulin regimen as necessary. Ashanti Roque M.D. / [id number] / [id number] / [id number] / [id number] cc: Neri Mojica M.D. [address] [place], [place] MedRecNo: [id number], Account: [id number], DocSeq: [id number] Addendum December 09 2006 Alin's random urine microalbumin level was elevated, suggesting possible early kidney impairment. To further evaluate this, I have called the family and requested a first morning void urine microalbumin level. He may to start on an HANS inhibitor (which can slow or reverse early microalbuminuria) should this also be elevated. Electronically signed by Ashanti Roque 12-09-2006 04:14:30 PM documented in this encounter Plan of Treatment Not on filedocumented as of this encounter Procedures + +--------+ + + + | Procedure Name | Priori | Date/Time | Associated Diagnosis | Comments | | | ty | | | | + +--------+ + + + | HEMOGLOBIN A1C, POC | Routin | 11/02/2006 | | Results for this | | | e | 11:41 AM | | procedure are in the | | | | PST | | results section. | + +--------+ + + + documented in this encounter Results HEMOGLOBIN A1C, POC (11/02/2006 11:41 AM PST) + +-------+ + + + | Component | Value | Ref Range | Performed | Pathologist | | | | | At | Signature | + +-------+ + + + | HEMOGLOBIN | 11.1 | | [facility] | | | A1C,POC | | | OF CARE | | | | | | TESTS | | + +-------+ + + + + + | Specimen | + + | | + + + + + + + | Performing | Address | City/State/Zipcode | Phone Number | | Organization | | | | + + + + + | [facility] | [address] | [place], [place] | | | [facility] | [facility] | [address] | | | TESTS | | | | + + + + + | [facility] | [address] | [place], [place] | | | TESTS | [facility] | [address] | | + + + + + documented in this encounter Visit Diagnoses Not on filedocumented in this encounter"
--- OUTSIDE RECORDS SUMMARY | ~2020-03-21 | XMS | Encounter Summary ---
Demographics + + + | Address | [address] | | | [place] [address] | + + + | Home Phone | | + + + | Preferred Language | Unknown | + + + | Marital Status | Single | + + + | Denominational Affiliation | Unknown | + + + | Race | Unknown | + + + | Ethnic Group | Unknown | + + + Author + + + | Author | [facility] | | | and [place] | + + + | Organization | [facility] | | | [...] [place] | | | | | [address] | | + + + + + Care Team Providers + +------+ + | Care Match Up Worker Name | Role | Phone | + +------+ + | Erich Yates | PCP | | + +------+ + Encounter Details +--------+ + + + + | Date | Type | Department | Care Team | Description | +--------+ + + + + | 03/16/ | Orders Only | [facility] | Conversion | | | 2018 | | NEPHROLOGY [place] | Transaction, | | | | | [address] | Provider Unknown | | | | | [address] [place], [place] | | | | | | [address] | (Fax) | | | | | [phone] | | | +--------+ + + + [...] Whitman MD | | | 2020 | Visit | | [address] [facility] | | | | | | [address] [place], [place] | | | | | | [address] | | | | | | | | +--------+---------+ + + + documented as of this encounter Procedures + +--------+ + + + | Procedure Name | Priori | Date/Time | Associated Diagnosis | Comments | | | ty | | | | + +--------+ + + + | IRON AND IRON | Routin | 03/16/2019 | | Results for this | | BINDING CAPACITY | e | 12:21 PM | | procedure are in the | | | | PDT | | results section. | + +--------+ + + + documented in this encounter Results Iron and Iron Binding Capacity (03/16/2019 12:21 PM PDT) + + + + + + | Component | Value | Ref Range | Performed | Pathologist | | | | | At | Signature | + + + + + + | Iron | 45.0 | 37 - 160 | EXTERNAL | | | | | | LAB | | + + + + + + | Iron | 18.5 (A) | 20 - 55 | EXTERNAL | | | Saturation | | | LAB | | + + + + + + | TIBC | 243 (A) | 245 - 400 | EXTERNAL | | | | | | LAB | | + + + + + + + + | Specimen | + + | Blood specimen | | (specimen) | + + + +---------+ + + | Performing | Address | City/State/Zipcode | Phone Number | | Organization | | | | + +---------+ + + | EXTERNAL LAB | | | | + +---------+ + + documented in this encounter Visit Diagnoses Not on filedocumented in this encounter"
--- OUTSIDE RECORDS SUMMARY | ~2020-03-21 | XMS | Encounter Summary ---
Demographics + + + | Address | [address] | | | [place] [address] | + + + | Home Phone | | + + + | Preferred Language | Unknown | + + + | Marital Status | Single | + + + | Uatsdin Affiliation | NON | + + + [...] Samantha Ramos | ECON | [address] # | | | | | [place] | | | | | [address] | | + + + + + Care Team Providers + +------+ + | Care Methods Analyst Data Processing Name | Role | Phone | + +------+ + | Erich Yates PA-C | PCP | | + +------+ + Encounter Details +--------+ + + + + | Date | Type | Department | Care Team | Description | +--------+ + + + + | 12/06/ | Documentati | Endoscopic | [place], | | | 2020 | on | Procedural Unit at | MD [facility] [address] | | | | | [address] | [facility] | | | | | [address] | [place], [place] | | | | | [place], | [address] | | | | | 4th floor [place], | [phone] | | | | | [place] [address] | | | | | | [phone] | | | +--------+ + + + [...]
--- OUTSIDE RECORDS SUMMARY | ~2020-03-21 | XMS | Encounter Summary ---
Demographics + + + | Address | [address] | | | [place] [address] | + + + | Home Phone | | + + + | Preferred Language | Unknown | + + + | Marital Status | Single | + + + | Worship Affiliation | NON | + + + | Race | White | + + + | Ethnic Group | Not or | + + + Author + + + | Author | [facility] | + + + | Organization | [facility] | + + + | Address | Unknown | + + + | Phone | Unavailable | + + + Support + + + + + | Name | Relationship | Address | Phone | + + + + + | Samantha Ramos | ECON | [address] # | | | | | [place] | | | | | [address] | | + + + + + Care Team Providers + +------+ + | Care Merchandise Flow Team Leader Name | Role | Phone | + [...] | Only | [facility] [address] | [facility] [address] | | | | | [address] | [address] | | | | | Mailcode: [id number] | [place] [address] | | | | | [facility] | [phone] | | | | | [place], [place] | | | | | | [address] | | | | | | [phone] | | | +--------+ + + + [...]
--- OUTSIDE RECORDS SUMMARY | ~2020-03-21 | XMS | Encounter Summary ---
Demographics + + + | Address | [address] | | | [place] [address] | + + + | Home Phone | | + + + | Preferred Language | Unknown | + + + | Marital Status | Single | + + + | Anabaptist Affiliation | Unknown | + + + | Race | Unknown | + + + | Ethnic Group | Unknown | + + + Author + + + | Author | [facility] | | | and [place] | + + + | Organization | [facility] | | | and [place] | + + + | Address | Unknown | + + + | Phone | Unavailable | + + + Support + + + + + | Name | Relationship | Address | Phone | + + + + + | iGa Ramos | ECON | [address] | | | | [address] [place] | | | | | [address] | | + + + + + Care Team Providers + +------+ + | Care Lpn Cma Name | Role | Phone | + +------+ + | Erich Yates | PCP | | + +------+ + Encounter Details +--------+ + + + + | Date | Type | Department | Care Team | Description | +--------+ + + + + | 06/20/ | Orders Only | [facility] | Winston Whitman MD | CKD (chronic kidney | | 2019 | | NEPHROLOGY [place] | [address] | disease), stage III | | | | [address] | [address] [place], [place] | ([facility]) (Primary Dx) | | | | [address] [facility] [place] | [address] | | | | | [address] | | | | | | [phone] | | | +--------+ + + + [...] | +--------+---------+ + + + | 05/07/ Office | Nephrology | Winston Whitman MD | | | 2019 | Visit | | [address] [facility] [address] | | | | | | [address] [place], [place] | | | | | | [address] | | | | | | | | +--------+---------+ + + + + +------+--------+ + + | Name | Type | Priori | Associated Diagnoses | Order Schedule | | | | ty | | | + +------+--------+ + + | Renal Function Panel | Lab | Routin | CKD (chronic | Expected: | | | | e | kidney disease), | 06/25/2019, Expires: | | | | | stage III (HCC) | 06/20/2020 | + +------+--------+ + + | CBC with | Lab | Routin | CKD (chronic | Expected: | | Differential | | e | kidney disease), | 06/25/2019, Expires: | | | | | stage III (HCC) | 06/20/2020 | + +------+--------+ + + | Iron and Iron | Lab | Routin | CKD (chronic | Expected: | | Binding Capacity | | e | kidney disease), | 06/25/2019, Expires: | | | | | stage III (HCC) | 06/20/2020 | + +------+--------+ + + | Ferritin | Lab | Routin | CKD (chronic | Expected: | | | | e | kidney disease), | 06/25/2019, Expires: | | | | | stage III (HCC) | 06/20/2020 | + +------+--------+ + + | Parathyroid Hormone, | Lab | Routin | CKD (chronic | Expected: | | Intact | | e | kidney disease), | 06/25/2019, Expires: | | | | | stage III (HCC) | 06/20/2020 | + +------+--------+ + + | Urinalysis With | Lab | Routin | CKD (chronic | Expected: | | Microscopic | | e | kidney disease), | 06/25/2019, Expires: | | | | | stage III (HCC) | 06/20/2020 | + +------+--------+ + + | Protein/Creatinine | Lab | Routin | CKD (chronic | Expected: | | Ratio, Urine | | e | kidney disease), | 06/25/2019, Expires: | | | | | stage III (HCC) | 06/20/2020 | + +------+--------+ + + documented as of this encounter Visit Diagnoses + + | Diagnosis | + + | CKD (chronic kidney disease), stage III (HCC) - Primary Chronic kidney disease, Stage | | III (moderate) | + + documented in this encounter"
--- OUTSIDE RECORDS SUMMARY | ~2020-03-21 | XMS | Encounter Summary ---
Demographics + + + | Address | [address] | | | [place] [address] | + + + | Home Phone | | + + + | Preferred Language | Unknown | + + + | Marital Status | Single | + + + | Episcopalian Affiliation | Unknown | + + + | Race | Unknown | + + + | Ethnic Group | Unknown | + + + Author + + + | Author | [facility] | | | and [place] | + + + | Organization | [facility] | | | and [...] [place] | | | | | [address] | | + + + + + Care Team Providers + +------+ + | Care Pig Machine Operator Name | Role | Phone | + +------+ + | Erich Yates | PCP | | + +------+ + Encounter Details +--------+ + + + + | Date | Type | Department | Care Team | Description | +--------+ + + + + | 01/11/ | Orders Only | [facility] | Conversion | | | 2018 | | NEPHROLOGY [place] | Transaction, | | | | | [address] | Provider Unknown | | | | | [address] [place], [place] | | | | | | [address] | (Fax) | | | | | [phone] | | | +--------+ + + + [...] 2020 | Visit | | [address] [facility] | | | | | | [address] [place], [place] | | | | | | [address] | | | | | | | | +--------+---------+ + + + documented as of this encounter Procedures + +--------+ + + + | Procedure Name | Priori | Date/Time | Associated Diagnosis | Comments | | | ty | | | | + +--------+ + + + | CULTURE, URINE | Routin | 01/11/2019 | | Results for this | | | e | 12:00 AM | | procedure are in the | | | | PDT | | results section. | + +--------+ + + + documented in this encounter Results Culture, Urine (01/11/2019 12:00 AM PDT) + + | Specimen | + + | Urine specimen | | (specimen) | + + + + + | Narrative | Performed At | + + + | Specimen Description Urine CULTURE | EXTERNAL LAB | | No Growth at 18-24 hrs. REPORT | | | STATUS Final | | + + + + +---------+ + + | Performing | Address | City/State/Zipcode | Phone Number | | Organization | | | | + +---------+ + + | EXTERNAL LAB | | | | + +---------+ + + documented in this encounter Visit Diagnoses Not on filedocumented in this encounter"
--- OUTSIDE RECORDS SUMMARY | ~2020-03-21 | XMS | Encounter Summary ---
Demographics + + + | Address | [address] | | | [place] [address] | + + + | Home Phone | | + + + | Preferred Language | Unknown | + + + | Marital Status | Single | + + + | Buddhism Affiliation | NON | + + + | Race | White | + + + | Ethnic Group | Not or | + + + Author + + + | Author | [facility] | + + + | Organization | [facility] | + + + | Address | Unknown | + + + | Phone | Unavailable | + + + Support + + + + + | Name | Relationship | Address | Phone | + + + + + | Samantha Ramos | ECON | [address] # | | | | | [place] | | | | | [address] | | + + + + + Care Team Providers + +------+ + | Care Plumbing Hardware Assembler Name | Role | Phone | + +------+ + | Jaison Pascual DO | PCP | | + +------+ + Reason for Visit + + + | Reason | Comments | + + + | Referral To Surgery | | | - General | | + + + Encounter Details +--------+ + + + + | Date | Type | Department | Care Team | Description | +--------+ + + + + | 12/08/ | Abstract | Digestive Health | Clinic, Surgery | Referral To Surgery | | 2015 | | Center at [facility] [address] | | - General | | | | [address] | | | | | | Mailcode: [place] | | | | | | for Health and | | | | | | [facility] [address] | | | | | | [place], [place] | | | | | | [address] | | | | | | [phone] | | | +--------+ + + + [...]
--- OUTSIDE RECORDS SUMMARY | ~2020-03-21 | XMS | Encounter Summary ---
Demographics + + + | Address | [address] | | | [place] [address] | + + + | Home Phone | | + + + | Preferred Language | Unknown | + + + | Marital Status | Single | + + + | Baptist Affiliation | Unknown | + + + | Race | Unknown | + + + | Ethnic Group | Unknown | + + + Author + + + | Author | [facility] | | | and [place] | + + + | Organization | [facility] | | | and [place] | + + + | Address | Unknown | + + + | Phone | Unavailable | + + + Support + + + + + | Name | Relationship | Address | Phone | + + + + + | Gia Ramos | ECON | [address] | | [address] | | | | | [address] | | + + + + + Care Team Providers + +------+ + | Care Cook Vacuum Kettle Name | Role | Phone | + +------+ + | Erich Yates | PCP | | + +------+ + Reason for Visit +--------+--------+ + | Reason | Onset | Comments | | | Date | | +--------+--------+ + | Other | 06/22/ | Appointment reminder call | | | 2018 | | +--------+--------+ + Encounter Details +--------+ + + + + | Date | Type | Department | Care Team | Description | +--------+ + + + + | 06/22/ | Telephone | [facility] | Winston Whitman MD | Other (Appointment | | 2019 | | NEPHROLOGY [place] | [address] [place] | reminder call) | | | | [address] [place] | [address] [place], [place] | | | | | [address] [place] | [id number] | | | | | [address] | | | | | | [phone] | | | +--------+ + + + [...] + + documented as of this encounter Miscellaneous Notes Telephone Encounter - Beth Marks Medical Assistant - 06/27/2019 4:16 PM PDTCalle d but was unable to reach patient at numbers listed. Will try again at a later time. Electro nically signed by Alonzo Concepcion Assistant at 06/27/2019 4:17 PM PDTTelephone Encounter - Beth Marks Medical Assistant - 06/22/2019 11:04 AM PDTThis call is to remind patient of appointment and lab work needed. I was unable to leave a message at all nu mber listed. Will try again at a later time. documented in this encounter Plan of Treatment +--------+---------+ + + + | Date | Type | Specialty | Care Team | Description | +--------+---------+ + + + | 05/07/ | Office | Nephrology | Winston Whitman MD | | | 2019 | Visit | | [address] [facility] | | | | | | [address] [place], [place] | | | | | | [address] | | | | | | | | +--------+---------+ + + + documented as of this encounter Visit Diagnoses Not on filedocumented in this encounter"
--- OUTSIDE RECORDS SUMMARY | ~2020-03-21 | XMS | Encounter Summary ---
Demographics + + + | Address | [address] | | | [place] [address] | + + + | Home Phone [...] + + + | Author | [facility] | + + + | Organization | [facility] | + + + | Address | Unknown | + + + | Phone | Unavailable | + + + Support + + + + + | Name | Relationship | Address | Phone | + + + + + | Samantha Ramos | ECON | [address] # | | | | | [place] | | | | | [address] | | + + + + + Care Team Providers + +------+ + | Care Vice President For Instruction Name | Role | Phone | + +------+ + | Erich Yates PA-C | PCP | | + +------+ + Encounter Details +--------+ + + + + | Date | Type | Department | Care Team | Description | +--------+ + + + + | 07/06/ | Transcribe | [facility] | Transcribe | | | 2019 | Orders | [facility] [address] | Encounter, Provider, | | | | | Elliott Nguyen Mailcode: | [address] | | | | | [facility] for | [place] [address] | | | | | Health and Healing, | | | | | | [address] | | | | | | [place], [place] | | | | | | [address] | | | | | | [phone] | | | +--------+ + + + [...] of this encounter Plan of Treatment + + +--------+ + + | Name | Type | Priori | Associated Diagnoses | Order Schedule | | | | ty | | | + + +--------+ + + | EGD | Procedures | Routin | Diabetic | Expected: 07/06/2019 | | | | e | gastroparesis (HCC) | | | | | | Abdominal pain, | | | | | | chronic, epigastric | | | | | | Chronic diarrhea | | | | | | Severe | | | | | | protein-calorie | | | | | | malnutrition (HCC) | | + + +--------+ + + | COLONOSCOPY | Procedures | Routin | Diabetic | Expected: 07/06/2019 | | | | e | gastroparesis (HCC) | | | | | | Abdominal pain, | | | | | | chronic, epigastric | | | | | | Chronic diarrhea | | | | | | Severe | | | | | | protein-calorie | | | | | | malnutrition (HCC) | | + + +--------+ + + documented as of this encounter Visit Diagnoses + + | Diagnosis | + + | Diabetic gastroparesis (HCC) - Primary 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
--- OUTSIDE RECORDS SUMMARY | ~2020-03-21 | XMS | Encounter Summary ---
Demographics + + + | Address | [address] | | | [place] [address] | + + + | Home Phone | | + + + | Preferred Language | Unknown | + + + | Marital Status | Single | + + + | Congregational Affiliation | NON | + + + | Race | White | + + + | Ethnic Group | Not or | + + + Author + + + | Author | [facility] | + + + | Organization | [facility] | + + + | Address | Unknown | + + + | Phone | Unavailable | + + + Support + + + + + | Name | Relationship | Address | Phone | + + + + + | Samantha Ramos | ECON | [address] # | | | | | [place] | | | | | [address] | | + + + + + Care Team Providers + +------+ + | Care Diving Fisher Name | Role | Phone | + +------+ + | Neri Mojica MD | PCP | | + +------+ + Encounter Details +--------+ + + + + | Date | Type | Department | Care Team | Description | +--------+ + + + + | 07/19/ | Results | Orthopaedics at | [place], | | | 2005 | Only | [facility] [address] | [facility] TE[facility]NICIAN [address] | | | | | [address] | [address] | | | | | Mailcode: PV430 | [place] [address] | | | | | [facility] | [phone] | | | | | [place], [place] | | | | | | [address] | | | | | | [phone] | | | +--------+ + + + [...] | | + +---------+--------+ + + | MRI OUTSIDE FILMS | Imaging | Routin | | 07/19/2006 12:00 AM | | | | e | | PDT | + +---------+--------+ + + documented as of this encounter Visit Diagnoses Not on filedocumented in this encounter"
--- OUTSIDE RECORDS SUMMARY | ~2020-03-21 | XMS | Encounter Summary ---
Demographics + + + | Address | [address] | | | [place] [address] | + + + | Home Phone | | + + + | Preferred Language | Unknown | + + + | Marital Status | Single | + + + | Adventist Affiliation | NON | + + + [...] Samantha Ramos | ECON | [address] # | | | | | [place] | | | | | [address] | | + + + + + Care Team Providers + +------+ + | Care Escort Patients Name | Role | Phone | + +------+ + | Erich Yates PA-C | PCP | | + +------+ + Reason for Referral Consultation (Urgent) +--------+--------+ + + + + | Status | Reason | Specialty | Diagnoses / | Referred By | Referred To | | | | | Procedures | Contact | Contact | +--------+--------+ + + + + | Closed | | Surgery | Diagnoses | Rufino | [facility] | | | | | Diabetic | Lashawn Tan, | [address] | | | | | gastroparesi | [address] | Elliott Nguyen | | | | | s (HCC) | [address]ANTE [facility] | Mailcode: | | | | | Procedures | [address] | [facility] | | | | | CONSULT TO | Rd | Health and | | | | | SURGERY - | [place], [place] | Healing, | | | | | GENERAL | [address] | [address] | | | | | CONSULT TO | Phone: | [place], [place] | | | | | SURGERY - | [phone] | [address] | | | | | GENERAL | Fax: | Phone: | | | | | | [phone] | [phone] | | | | | | | Fax: | | | | | | | [phone] | +--------+--------+ + + + + Reason [...] | | | ogy | Abdominal | [facility], | [address] | | | | | pain | Vicky N, | [address] | | | | | abdominal | OUTCOMES ANALYST [address] | Mailcode: | | | | | pain | [place] | [facility] | | | | | | [place] | [facility] and | | | | | | [address] | Healing, | | | | | | [place], | [address] | | | | | | [place] [address] | [place], [place] | | | | | | Phone: | [address] | | | | | | [phone] | Phone: | | | | | | Fax: | [phone] | | | | | | [phone] | Fax: | | | | | | | [phone] | +--------+--------+ + + + + Encounter Details +--------+---------+ + + + | Date | Type | Department | Care Team | Description | +--------+---------+ + + + | 07/02/ | Office | Digestive Health | Lashawn Joy, | Diabetic | | 2019 | Visit | Center at [facility] [address] | [address] [facility] | gastroparesis (HCC) | | | | Zee Nguyen | [address] | (Primary Dx); | | | | Mailcode: [place] | [place], [place] | Chronic diarrhea | | | | for Health and | [address] | | | | | [facility], [facility] [address] | [phone] | | | | | [place], [place] | | | | | | [address] | | | | | | [phone] | | | +--------+---------+ + + + [...] once the orders have been submitted to [facility]. Please do not hesitate to contact my office via phone or [employer] if you have any questions. Thank you! documented in this encounter Progress Notes Abdirziak Silva - 07/02/2019 1:05 PM PDTPatient presents [...] Pylori IgG, 2015: -28.8 (H) TTG, IgA, 2014: - WNL PAST MEDICAL HISTORY No date: Chronic epigastric pain Comment: Suspected gastroparesis. EGD negative No date: Type 1 diabetes mellitus (HCC) Comment: Dx age 11. No known complications aside from suspected gastroparesis. Last A1c unknown. FAMILY HISTORY: No GI relevant family history is reported. SOCIAL HISTORY: Pt lives in [place], [place] with his mother. Not working. Smokes [...] but this may be difficult for t [facility] to afford as it is not covered [...] Lashawn Joy PA-C [facility] AT [address] [place]: [place] [address] documented in this encounter Plan of Treatment + + [...] | + + + + + | [facility] - | [address] | [place] | [phone] | | [place] | | | | [...] - | [address] | [place] | [phone] | | EUN | | | | [...] - | [address] | [place], [place] | [phone] | | EUN | | | | [...] [address] | [place] | [phone] | | [place] | | | | [...] | + + + + + | Way[facility] | [address] | [place] [address] | | | SERVICES, CORE | [address] [...] | + + + + + | [facility] - | [address] | [place] [address] | | | [place] | | | | + + + [...] | | | LABORATORY | | | GREEK | | | SERVICES, | | | [...] MDRD equation recommended by the National | [facility] | | Kidney Disease Education Program. Estimated [...] | + + + + + | [facility] [employer] | [address] [facility] | [place] [address] | | | [address] | [address] | | | + [...] | + + + + + | [facility] | [address] | [place] [address] | | | SERVICES, CORE | [place] [...]
--- OUTSIDE RECORDS SUMMARY | ~2020-03-21 | XMS | Encounter Summary ---
Demographics + + + | Address | [address] | | | [place] [address] | + + + | Home Phone | | + + + | Preferred Language | Unknown | + + + | Marital Status | Single | + + + | Buddhist Affiliation | Unknown | + + + | Race | Unknown | + + + | Ethnic Group | Unknown | + + + Author + + + | Author | [facility] | | | and [place] | + + + | Organization | [facility] | | | [...] [place] | | | | | [address] | | + + + + + Care Team Providers + +------+ + | Care Catalyst Manufacturing Operator Name | Role | Phone | + +------+ + | Erich Yates | PCP | | + +------+ + Encounter Details +--------+ + + + + | Date | Type | Department | Care Team | Description | +--------+ + + + + | 05/15/ | Abstract | [facility] | Divya, | | | 2017 | | GASTROENTEROLOGY | [address] | | | | | [address] [facility] | [place]. | | | | | [address] [place], [place] | [place] [address] | | | | | [address] | | | | | | [phone] | | | +--------+ + + + [...] 2020 | Visit | | [address] [facility] | | | | | | [address] [place] | | | | | | [address] | | | | | | | | +--------+---------+ + + + documented as of this encounter Visit Diagnoses Not on filedocumented in this encounter"
--- OUTSIDE RECORDS SUMMARY | ~2020-03-21 | XMS | Encounter Summary ---
Demographics + + + | Address | [address] | | | [place] [address] | + + + | Home Phone | | + + + | Preferred Language | Unknown | + + + | Marital Status | Single | + + + | Judaism Affiliation | Unknown | + + + | Race | Unknown | + + + | Ethnic Group | Unknown | + + + Author + + + | Author | [facility] | | | and [place] | + + + | Organization | [facility] | | | [...] [place] | | | | | [address] | | + + + + + Care Team Providers + +------+ + | Care Automatic Machines Supervisor Name | Role | Phone | + +------+ + | Emmanuel Saavedra PCP | | + +------+ + Encounter Details +--------+ + + + + | Date | Type | Department | Care Team | Description | +--------+ + + + + | 03/04/ | Virtual | [facility] | Winston Whitman MD | CKD (chronic kidney | | 2020 | Office | NEPHROLOGY [place] | [address] [place] | disease) stage 4, | | | Visit | [address] [place] | [address] [place], [place] | GFR 15-29 ml/min | | | | [address] [place], [place] | [address] | ([facility]) (Primary Dx); | | | | [address] | | Anemia of chronic | | | | [phone] | | renal failure, stage | | | | | | 4 (severe) ([facility]); | | | | | | Electrolyte | | | | | | imbalance risk; | | | | | | Nephrotic range | | | | | | proteinuria; Current | | | | | | smoker; Stable | | | | | | proliferative | | | | | | diabetic retinopathy | | | | | | of both eyes | | | | | | associated with type | | | | | | 1 diabetes mellitus | | | | | | ([facility]); Essential | | | | | | hypertension; | | | | | | Hypernatremia; | | | | | | Chronic diarrhea; | | | | | | Hypoalbuminemia | +--------+ + + + + Social [...] of this encounter Patient Instructions Patient Instructions Winston Whitman MD - 03/04/2020 2:30 PM PDTDiscussions/Recommendations : I discussed today with Mr. Marquez the meaning of his severe CKD and the interaction of th at with his diabetes & hypertension. I stressed the importance of keeping his BG & BP controlled and avoiding getting dehydra alissa if we are to have a chance at helping preserve his renal function. He showed good under standing. I gave him instructions on how to chart his blood pressure in the appropriate manner at home. He is to call us if they fall outside of the optimal provided range. He will bring his sphygmomanometer for validation once a year. He will strictly abide by a low salt diet. He will avoid all kinds of NSAIDs for analgesia. Also: I sent him for evaluation by the Kidney transplant team in [place]. I sent him for a Pre-dialysis Options class. I recommend that he gets IV fluids in the outpatient setting thru your office (severe di arrhea causing the volume depletion). I kept him off of his Lisinopril for now. I sent him for a repeat BMP every 2 weeks. He will report back to me his home BP readings in 2 weeks. At that time, I will decide w hether any change to his vasoactive regimen is warranted. I strongly advised him to stop smoking; I explained the benefits of doing that. He voice d good understanding. He will F/U with your office regularly. He will have a RFP, CBC, uric acid, urinalysis, Urine total jhlqxzz-ye-jwibcrbcvv ratio before he comes back in 2 months. 3: 46 PM PDT documented in this encounter Progress Notes Winston Whitman MD - 03/04/2020 2:30 PM PDT Patient Active Problem List Diagnosis Date Noted POA Current smoker 09/19/2018 Unknown Priority: Medium Hypertension 09/19/2018 Unknown Priority: Low Marijuana use 09/19/2018 Unknown Priority: Low Community acquired pneumonia of right lower lobe of lung 02/16/2020 Unknown Chest pain 06/09/2019 Unknown Acute kidney injury superimposed on chronic kidney disease 06/09/2019 Unknown Anemia of chronic renal failure, stage 3 (moderate) 01/15/2019 Unknown CKD (chronic kidney disease), stage III 01/15/2019 Unknown Electrolyte imbalance risk 01/15/2019 Unknown Metabolic acidosis 01/15/2019 Unknown Nephrotic range proteinuria 01/15/2019 Unknown 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 Marquez in hospital F/U on an urgent today. As you are familiar with his case, I will not state his past history in detail. Briefly, he is a [age] y.o. male patient with past history as delineated above. he is here to be evaluated for h is severe CKD. In 04/2018, his UTPCR was 2,275 mg/g; sCr & eGFR of 1.44 & 58. In 08/2018, 2 .07 & 38. UTPCR On 01/11/19: 5,967 mg/g. He says that he feels 'good ' today. He denies any significant blurred vision tinnitus, he adache, fever, chills, or cough. He has recurrent nausea, vomiting, abdominal pain, diarrhe a; no melena or hematochezia. No chest pain, palpitation, dizziness, loss of consciousness, orthopnea, paroxysmal nocturnal dyspnea, or leg edema. No dysuria, hematuria, incontinence , or symptoms of UTI. He has 1 or 2 nightly nocturia. No history of passing kidney stones. The following portions of the patient's history were reviewed and updated as appropriate: a llergies, current medications, past medical history, past social history, past surgical hist ory, family history and problem list. I also reviewed with him the records received from you r office; these were very informative. *I also reviewed with him the records from his most recent hospitalization, including the d ischarge summary. As in History of Present Illness & in Assessment. All the twelve systems were reviewed and were otherwise negative. Active comorbid conditions include: - hypertension; essential; with renal disease; with CKD stage 1-4 - renal disease; proteinuria; CKD; Stage 4 - endocrine problem - diabetes; type 1; using insulin; uncontrolled (Hgb A1C >= 6.5); with complications - arthritis - Drugs/Alcohol/Tobacco - substance abuse - tobacco use Past Medical History: Diagnosis Date Abdominal pain Arthritis Bowel dysfunction Chronic kidney disease Diabetes (HCC) Dizziness Healed ulcer of left foot on examination Heart palpitations Hypertension Kidney stone Onychomycosis Retinopathy Stress headaches Past Surgical History: Procedure Laterality Date ELBOW SURGERY Right LEG AMPUTATION BELOW KNEE URETEROSCOPY Right 09/19/2018 Procedure: CYSTOSCOPY W/ URETEROSCOPY W/ LASER LITHOTRIPSY WITH STENT PLACEMENT; Surgeon: Tc Mora MD; Location: [facility] MA[facility] OR Family History Problem Relation Age [...] file Highest education level: Not on file Occupational History Not on file Social Needs Financial resource strain: Not on file Food insecurity: Worry: Not on file Inability: Not on file Transportation needs: Medical: Not on file Non-medical: Not on file Tobacco Use Smoking status: Current Every Day Smoker Types: Cigarettes Smokeless tobacco: Never Used Substance and Sexual Activity Alcohol use: No Drug use: Yes Types: Marijuana Comment: daily Sexual activity: Yes Partners: Female control/protection: Condom Lifestyle Physical activity: Days per week: Not on file Minutes per session: Not on file Stress: Not on file Relationships Social connections: Talks on phone: Not on file Gets together: Not on file Attends temple service: Not on file Active member of club or organization: Not on file Attends meetings of clubs or organizations: Not on file Relationship status: Not on file Intimate partner violence: Fear of current or ex partner: Not on file Emotionally abused: Not on file Physically abused: Not on file Forced sexual activity: Not on file Other Topics Concern Not on file Social History Narrative Not on file Allergies Allergen Reactions Codeine Nausea And Vomiting Reaction: Projectile vomit Vancomycin Nausea And Vomiting,Swelling,Rash Vancomycin and cipro Intolerance No active intolerances/contraindications Current Outpatient Medications: carvedilol (COREG) 25 mg tablet, Take 1 tablet by mouth 2 times daily (with breakfast & dinner) for 30 days., Disp: 60 tablet, Rfl: 0 ciprofloxacin (CIPRO) 500 mg tablet, Take 1 tablet by mouth Daily. (Patient not taking : Reported on 03/04/2020), Disp: 5 tablet, Rfl: 0 furosemide (LASIX) 80 mg tablet, Take 1 tablet by mouth 2 times daily for 30 days., Di sp: 60 tablet, Rfl: 0 GLUCAGON EMERGENCY 1 MG injection, Inject 1 mg into the muscle once., Disp: , Rfl: HYDROcodone-acetaminophen (NORCO) 10-325 mg per tablet, Take 1 tablet by mouth 4 times daily., Disp: , Rfl: 0 hyoscyamine (LEVSIN) 0.125 mg SL tablet, Place 0.125 mg under the tongue every 4 hours as needed for Cramping or Diarrhea., Disp: , Rfl: insulin glargine (LANTUS SOLOSTAR) 100 units/mL injection (pen), Inject 10 Units under the skin nightly., Disp: 1 pen, Rfl: 0 insulin lispro (HUMALOG KWIKPEN) 100 units/mL injection (pen), Inject under the skin 4 times daily (before meals and nightly). 1 unit for every 10 carbs, Disp: , Rfl: lisinopril (PRINIVIL, ZESTRIL) 10 mg tablet, Take 5 mg by mouth Daily., Disp: , Rfl: melatonin 3 mg TABS, Take 1 tablet by mouth nightly as needed for Insomnia. (Patient n ot taking: Reported on 03/04/2020), Disp: 30 tablet, Rfl: 0 ondansetron (ZOFRAN ODT) 8 mg disintegrating tablet, Take 8 mg by mouth 2 times daily. , Disp: , Rfl: pregabalin (LYRICA) 100 mg capsule, Take 100 mg by mouth 3 times daily as needed. For pain, Disp: , Rfl: sertraline (ZOLOFT) 50 mg tablet, Take 1 tablet by mouth Daily., Disp: 30 tablet, Rfl: 1 Sodium Bicarbonate-Citric Acid (BRADEN-SELTZER HEARTBURN PO), Dissolve 1 to 2 tablets in 4 ounces of water as needed for heartburn, Disp: , Rfl: vancomycin 125 mg capsule, Take 1 capsule by mouth 2 times daily. Indications: Clostri dium difficile Bacteria (Patient not taking: Reported on 03/04/2020), Disp: 14 capsule, Rfl: 0 Physical Exam: There were no vitals taken for this visit. General appearance: Pleasant, not in acute distress. Neck: Supple without tracheal deviation or no jugular venous distension. Head and ENT: Head is atraumatic. Hearing is appropriate. Eyes: Anicteric. The extraocular muscle movements are normal. Lungs: Good chest expansion. Breathing comfortably. Musculoskeletal: No swelling of hand joints bilaterally. Tip of fingers deformities noted. Extremities: Warm to touch with no leg edema, as performed by patient after coaching on ho w to do it by myself. There is no digital cyanosis. Skin: There are no rashes, petechiae, or ecchymosis in the visible parts of the skin. Neurological: Awake, alert, and oriented to time, place, and person. Normal gross motor po wer. There is no asterixis. Psychiatric: The patient s behavior is normal. Judgment and thought content are normal. Lab Results Component Value Date HGB 10.2 (A) 02/27/2020 HGB 9.5 (L) 02/21/2020 HCT 29.8 (L) 02/21/2020 NA 146 (A) 02/27/2020 K 4.3 02/27/2020 CL 109 02/27/2020 CO2 21 02/27/2020 BUN 56 (A) 02/27/2020 CREA 4.74 (A) 02/27/2020 CALCIUM 7.5 (A) 02/27/2020 CALCIUM 7.4 (L) 02/21/2020 ALBUMIN 1.8 (A) 02/27/2020 PHOS 6.5 (H) 02/21/2020 EGFR 15.0 (A) 02/27/2020 FERRITIN 388 (H) 02/16/2020 PTH 22.91 03/16/2019 LABPROT 12,326.2 (A) 02/27/2020 No results for input(s): BUN, CREA, EGFR, NA, K, CL, CO2, CALCIUM, PHOS, MG, ALBUMIN, HGB, HCT, IRON in the last 72 hours. No components found for: MALBRX No components found for: MICROALBUR Assessment: Mr. Marquez is a 29 y.o. male patient with stage IV CKD in the setting of long standing diarr hea & of hypertension. The most likely pathology here is that of diabetic nephropathy +/- h ypertensive nephrosclerosis/arteriolosclerosis. RENAL FUNCTION: Worse now vs late 01/2020, likely because of his persistent diarrhea BLOOD PRESSURE: Relatively controlled BLOOD SUGAR: uncontrolled ELECTROLYTES: Very mild hypernatremia (from the persistent diarrhea) ANEMIA: mild VITAMIN D: To be checked thru your office PARATHYROID HORMONE: To be checked URIC ACID: To be rechecked PROTEINURIA: Severe: nephrotic range URINALYSIS: Microscopic hematuria; no UTI. VOLUME STATUS: Euvolumic. Discussions/Recommendations: I discussed today with Mr. Marquez the meaning of his severe CKD and the interaction of th at with his diabetes & hypertension. I stressed the importance of keeping his BG & BP controlled and avoiding getting dehydra alissa if we are to have a chance at helping preserve his renal function. He showed good under standing. I gave him instructions on how to chart his blood pressure in the appropriate manner at home. He is to call us if they fall outside of the optimal provided range. He will bring his sphygmomanometer for validation once a year. He will strictly abide by a low salt diet. He will avoid all kinds of NSAIDs for analgesia. Also: I sent him for evaluation by the Kidney transplant team in [place]. I sent him for a Pre-dialysis Options class. I recommend that he gets IV fluids in the outpatient setting thru your office (severe di arrhea causing the volume depletion). I kept him off of his Lisinopril for now. I sent him for a repeat BMP every 2 weeks. He will report back to me his home BP readings in 2 weeks. At that time, I will decide w hether any change to his vasoactive regimen is warranted. I strongly advised him to stop smoking; I explained the benefits of doing that. He voice d good understanding. He will F/U with your office regularly. He will have a RFP, CBC, uric acid, urinalysis, Urine total rjwvnpf-cg-xrqhzlpdnt ratio before he comes back in 2 months. More than 45 minutes of this 90-minute visit was spent in education and counseling. Thank you Dr Saavedra for the opportunity to see this patient in consult today. Please do no t hesitate to call me at any time with questions or concerns. Truly yours, Winston Whitman MD [facility] This exam was initially conducted via a secure 256-bit AES encrypted bidirectional video se ssion. You have chosen to receive care through the use of telemedicine. Telemedicine enables [facility] care providers at different locations to provide safe, effective and convenient care throu gh the use of technology. As with any health care service, there are risks associated with t he use of telemedicine, including equipment failure, poor image resolution and information s ecurity issues. Do you understand the risks and benefits of telemedicine as I have explained them to you? " Yes" Have your questions regarding telemedicine been answered? "Yes" Patient is currently at home Do you consent to the use of telemedicine in your medical care today? Yes. Last question, I need to confirm where are you physically located right now? Answer: Patient confirms they are located in a state where IWinston MD am licensed. documented in this enco unter Plan of Treatment +--------+---------+ + + + | Date | Type | Specialty | Care Team | Description | +--------+---------+ + + + | 05/07/ | Office | Nephrology | Winston Whitman MD | | | 2019 | Visit | | [address] [facility] | | | | | | [address] [place], [place] | | | | | | [address] | | | | | | | | +--------+---------+ + + + documented as of this encounter Visit Diagnoses + + | Diagnosis | + + | CKD (chronic kidney disease) stage 4, GFR 15-29 ml/min ([facility]) - Primary Chronic kidney | | disease, Stage IV (severe) | + + | Anemia of chronic renal failure, stage 4 (severe) ([facility]) | + + | Electrolyte imbalance risk Other specified conditions influencing health status | + + | Nephrotic range proteinuria Proteinuria | + + | Current smoker Tobacco use disorder | + + | 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 with type 1 diabetes | | mellitus (HCC) | + + | Essential hypertension Unspecified essential hypertension | + + | Hypernatremia Hyperosmolality and/or hypernatremia | + + | Chronic diarrhea Diarrhea | + + | Hypoalbuminemia Other disorders of plasma protein metabolism | + + documented in this encounter
--- OUTSIDE RECORDS SUMMARY | ~2020-03-21 | XMS | Encounter Summary ---
Demographics + + + | Address | [address] | | | [place] [address] | + + + | Home Phone | | + + + | Preferred Language | Unknown | + + + | Marital Status | Single | + + + | Christian Affiliation | Unknown | + + + | Race | Unknown | + + + | Ethnic Group | Unknown | + + + Author + + + | Author | [facility] | | | and [place] | + + + | Organization | [facility] | | | [...] [place] | | | | | [address] | | + + + + + Care Team Providers + +------+ + | Care Auto Parts Salesperson Name | Role | Phone | + +------+ + | Erich Yates | PCP | | + +------+ + Reason for Visit + +--------+ + | Reason | Onset | Comments | | | Date | | + +--------+ + | Referral | 03/22/ | | | | 2018 | | + +--------+ + Encounter Details +--------+ + + + + | Date | Type | Department | Care Team | Description | +--------+ + + + + | 03/22/ | Telephone | [facility] | [facility], | [facility] | | 2019 | | GASTROENTEROLOGY | DANA [address] | | | | | [address] [place] | [address] | | | | | [address] [place], [place] | [place], [place] | | | | | [address] | [address] | | | | | [phone] | | | +--------+ + + + [...] this encounter Miscellaneous Notes Telephone Encounter - Kay Sterling CMA - 03/26/2019 9:27 AM PDTSpoke to Jenni , she has been in contact with [facility] and they are reconsidering the original referral to them to g et this patient in for an appointment. She asked that I fax the referral to them. This has b een faxed. elephon e Encounter - Alessio Laura - 03/26/2019 8:36 AM PDTName of Caller: Jenni from [facility] Name of Patient: Brooks Marquez Reason for call: Jenni called again and wanted to speak with the clinical staff in regards to his [facility] referral being declined. Provider/Nurse: Tod Garcia Call back number: [phone] elephone Encounter - Alessio Gaston - 03/22/2019 3:20 PM PDTName of Caller: Jenni from [facility] Name of Patient: Brooks Marquez "Alin" Reason for call: Jenni wanted to speak with [facility] clinical staff in regards to referra l to [facility] , being declined due to patient, outside a 90 miles radius. [facility] referred patient to Dr. Carson Houston. Routing to clinical staff. Please return call. pm Provider/Nurse: Allie / Call back number: [phone] documented in this enco unter Plan of Treatment +--------+---------+ + + + | Date | Type | Specialty | Care Team | Description | +--------+---------+ + + + | 05/07/ | Office | Nephrology | Winston Whitman MD | | | 2020 | Visit | | [address] [facility] | | | | | | [facility] [place] | | | | | | [id number] | | | | | | | | +--------+---------+ + + + documented as of this encounter Visit Diagnoses Not on filedocumented in this encounter
--- OUTSIDE RECORDS SUMMARY | ~2020-03-21 | XMS | Encounter Summary ---
Demographics + + + | Address | [address] | | | [place] [address] | + + + | Home Phone [...] Samantha Ramos | ECON | [address] | | | | | [place] | | | | | [address] | | + + + + + Care Team Providers + +------+ + | Care Cementing Bulk Material Operator Name | Role | Phone | [...] | | 2020 | | Center at [facility] [address] | [address] | | | | | [address] Wendy | [address] [place], | | | | | Mailcode: [place] | [place] [address] | | | | | for Health and | [phone] | | | | | [facility], [facility] [address] | | | | | | [place], [place] | | | | | | [address] | | | | | | [phone] | | | +--------+ + + + [...]
--- OUTSIDE RECORDS SUMMARY | ~2020-03-21 | XMS | Encounter Summary ---
Demographics + + + | Address | [address] | | | [place] [address] | + + + | Home Phone [...] Author + + + | Author | [facility] | + + + | Organization | [facility] | + + + | Address | Unknown | + + + | Phone | Unavailable | + + + Support + + + + + | Name | Relationship | Address | Phone | + + + + + | Samantha Ramos | ECON | [address] | | | | | [place] | | | | | [address] | | + + + + + Care Team Providers + +------+ + | Care Vp Outcomes Name | Role | Phone | + +------+ + | Erich Yates PA-C | PCP | | + +------+ + Encounter Details +--------+ + + + + | Date | Type | Department | Care Team | Description | +--------+ + + + + | 11/28/ | Anesthesia | [facility]ERU at [facility] | Beth Nash, | | | 2019 | Event | [facility] [address] | RN [address] [facility] | | | | | Elliott Nguyen Mailcode: | [address] | | | | | [facility] | [place], [place] | | | | | [facility], | [address] | | | | | [address] | | | | | | [place], [place] | | | | | | [address] | | | | | | [phone] | | | +--------+ + + + [...]
--- OUTSIDE RECORDS SUMMARY | ~2020-03-21 | XMS | Encounter Summary ---
Demographics + + + | Address | [address] | | | [place] [address] | + + + | Home Phone | | + + + | Preferred Language | Unknown | + + + | Marital Status | Single | + + + | Bahai Affiliation | NON | + + + [...] | Samantha Ramos | ECON | [address] | | | | | [place] | | | | | [address] | | + + + + + Care Team Providers + +------+ + | Care Laborer Stores Name | Role | Phone | + [...] | | 2019 | | Center at [facility] [address] | [address] | Review | | | | Zee Nguyen | [address] | | | | | Mailcode: Center | [place], [place] | | | | | [facility] and | [address] | | | | | [facility] [address] | [phone] | | | | | [place], [place] | | | | | | [address] | | | | | | [phone] | | | +--------+ + + + [...]
--- OUTSIDE RECORDS SUMMARY | ~2020-03-21 | XMS | Encounter Summary ---
Demographics + + + | Address | [address] | | | [place] [address] | + + + | Home Phone [...] Samantha Ramos | ECON | [address] | | | | | [place], [place] | | | | | [address] | | + + + + + Care Team Providers + +------+ + | Care Multi Site Leasing Consultant Name | Role | Phone | + [...]
--- OUTSIDE RECORDS SUMMARY | ~2020-03-21 | XMS | Encounter Summary ---
Demographics + + + | Address | [address] | | | [place] [address] | + + + | Home Phone | | + + + | Preferred Language | Unknown | + + + | Marital Status | Single | + + + | Taoism Affiliation | NON | + + + [...] Samantha Ramos | ECON | [address] | | | | | [place], [place] | | | | | [address] | | + + + + + Care Team Providers + +------+ + | Care Town Manager Name | Role | Phone | + +------+ + PCP | Unavailable | + +------+ + Encounter Details +--------+ + + + + | Date | Type | Department | Care Team | Description | +--------+ + + + + | 12/02/ | Results | | Emmanuel Zee, | | | 2002 | Only | | [address] | | | | | | [address] | | | | | | [place], [place] | | | | | | [address] | | | | | | [phone] | | | | | | | [...] | + +--------+ + + + | CHEMISTRY MASTER | Urgent | 12/03/2002 | | Results for this | | PANEL | | 6:00 AM | | procedure are in the | | | | PST | | results section. | + +--------+ + + + | POTASSIUM, WHOLE | Urgent | 12/03/2002 | | Results for this | | BLOOD | | 6:00 AM | | procedure are in the | | | | PST | | results section. | + +--------+ + + + | SODIUM, WHOLE BLOOD | Urgent | 12/03/2002 | | Results for this | | | | 6:00 AM | | procedure are in the | | | | PST | | results section. | + +--------+ + + + | BASIC METABOLIC SET | Urgent | 12/03/2002 | | Results for this | | (NA, K, CL, TCO2, | | 6:00 AM | | procedure are in the | | BUN, CR, GLU, CA) | | PST | | results section. | + +--------+ + + + | GLUCOSE, WHOLE BLOOD | Urgent | 12/03/2002 | | Results for this | | | | 6:00 AM | | procedure are in the | | | | PST | | results section. | + +--------+ + + + | CALCIUM, IONIZED, | Urgent | 12/03/2002 | | Results for this | | WHOLE BLOOD | | 6:00 AM | | procedure are in the | | | | PST | | results section. | + +--------+ + + + | BLOOD GASES, VENOUS | Urgent | 12/03/2002 | | Results for this | | - LAB | | 6:00 AM | | procedure are in the | | | | PST | | results section. | + +--------+ + + + | BASIC METABOLIC SET | Routin | 12/03/2002 | | Results for this | | (NA, K, CL, TCO2, | e | 2:20 AM | | procedure are in the | | BUN, CR, GLU, CA) | | PST | | results section. | + +--------+ + + + | PHOSPHORUS, PLASMA | Routin | 12/03/2002 | | Results for this | | | e | 2:20 AM | | procedure are in the | | | | PST | | results section. | + +--------+ + + + | MAGNESIUM, PLASMA | Routin | 12/03/2002 | | Results for this | | | e | 2:20 AM | | procedure are in the | | | | PST | | results section. | + +--------+ + + + | BASIC METABOLIC SET | Urgent | 12/02/2002 | | Results for this | | (NA, K, CL, TCO2, | | 10:00 PM | | procedure are in the | | BUN, CR, GLU, CA) | | PST | | results section. | + +--------+ + + + | CHEMISTRY MASTER | Urgent | 12/02/2002 | | Results for this | | PANEL | | 6:45 PM | | procedure are in the | | | | PST | | results section. | + +--------+ + + + | COMPLETE METABOLIC | Urgent | 12/02/2002 | | Results for this | | SET | | 6:45 PM | | procedure are in the | | (NA,K,CL,CO2,BUN,CRE | | PST | | results section. | | AT,GLUC,CA,AST,ALT,B | | | | | | ANNIE TOTAL,ALK | | | | | | PHOS,ALB,PROT TOTAL) | | | | | + +--------+ + + + | PHOSPHORUS, PLASMA | Urgent | 12/02/2002 | | Results for this | | | | 6:45 PM | | procedure are in the | | | | PST | | results section. | + +--------+ + + + | HEMOGLOBIN A1C, | Urgent | 12/02/2002 | | Results for this | | BLOOD | | 6:45 PM | | procedure are in the | | | | PST | | results section. | + +--------+ + + + | BLOOD GASES, VENOUS | Urgent | 12/02/2002 | | Results for this | | - LAB | | 6:45 PM | | procedure are in the | | | | PST | | results section. | + +--------+ + + + | MAGNESIUM, PLASMA | Urgent | 12/02/2002 | | Results for this | | | | 6:45 PM | | procedure are in the | | | | PST | | results section. | + +--------+ + + + documented in this encounter Results BLOOD GASES, VENOUS (12/03/2002 6:00 AM PST) + + + + + + | Component | Value | Ref Range | Performed | Pathologist | | | | | At | Signature | + + + + + + | PAT TEMP | 36.1 | Degree C | [facility] | | | VENOUS | | | DEPARTMENT | | | | | | OF | | | | | | PATHOLOGY | | + + + + + + | FIO2 VENOUS | RA | | [facility] | | | | | | DEPARTMENT | | | | | | OF | | | | | | PATHOLOGY | | + + + + + + | PH VENOUS | 7.32 (L) | 7.35 - 7.45 | [facility] | | | | | | DEPARTMENT | | | | | | OF | | | | | | PATHOLOGY | | + + + + + + | PCO2 VENOUS | 28 (L) | 35 - 50 mmHg | [facility] | | | | | | DEPARTMENT | | | | | | OF | | | | | | PATHOLOGY | | + + + + + + | PO2 VENOUS | 66 (H) | 30 - 55 mmHg | [facility] | | | | | | DEPARTMENT | | | | | | OF | | | | | | PATHOLOGY | | + + + + + + | BASE EXCESS | -10.8 | | [facility] | | | VENOUS | | | DEPARTMENT | | | | | | OF | | | | | | PATHOLOGY | | + + + + + + | HCO3 VENOUS | 14 (L) | 22 - 28 mmol/L | [facility] | | | | | | DEPARTMENT | | | | | | OF | | | | | | PATHOLOGY | | + + + + + + | TOTAL CO2 | 15 (L) | 23 - 29 mmol/L | [facility] | | | VENOUS | | | DEPARTMENT | | | | | | OF | | | | | | PATHOLOGY | | + + + + + + | O2 SAT, | 93.9 | % | [facility] | | | VENOUS | | | DEPARTMENT | | | | | | OF | | | | | | PATHOLOGY | | + + + + + + + + | Specimen | + + | | + + + + + | Narrative | Performed At | + + + | Venous Blood Gas Blood Gas results corrected for | [facility] | | patient's temp when available | DEPARTMENT OF | | | PATHOLOGY | + + + + + + + + | Performing | Address | City/State/Zipcode | Phone Number | | Organization | | | | + + + + + | [facility] DEPARTMENT OF | [address] | [place] [address] | | | PATHOLOGY | [address] | | | + + + + + | [facility] DEPARTMENT OF | [address] | [place] [address] | | | PATHOLOGY | [address] | | | + + + + + SODIUM, WHOLE BLOOD (12/03/2002 6:00 AM PST) + +-------+ + + + | Component | Value | Ref Range | Performed | Pathologist | | | | | At | Signature | + +-------+ + + + | SODIUM,WHOL | 144 | 136 - 145 | [facility] | | | E BLOOD | | mmol/L | DEPARTMENT | | | | | | OF | | | | | | PATHOLOGY | | + +-------+ + + + + + | Specimen | + + | | + + + + + + + | Performing | Address | City/State/Zipcode | Phone Number | | Organization | | | | + + + + + | [facility] | [address] [facility] | [place] [address] | | | PATHOLOGY | [address] | | | + + + + + | [facility] | [address] [facility] | [place] [address] | | | PATHOLOGY | [address] | | | + + + + + POTASSIUM, WHOLE BLOOD (12/03/2002 6:00 AM PST) + +---------+ + + + | Component | Value | Ref Range | Performed | Pathologist | | | | | At | Signature | + +---------+ + + + | POTASSIUM,W | 2.9 (L) | 3.5 - 5.1 | [facility] | | | HOLE BLD | | mmol/L | DEPARTMENT | | | | | | OF | | | | | | PATHOLOGY | | + +---------+ + + + + + | Specimen | + + | | + + + + + + + | Performing | Address | City/State/Zipcode | Phone Number | | Organization | | | | + + + + + | [facility] DEPARTMENT OF | [address] | [place] [address] | | | PATHOLOGY | [address] | | | + + + + + | [facility] DEPARTMENT OF | [address] | [place] [address] | | | PATHOLOGY | [address] | | | + + + + + CALCIUM, IONIZED, WHOLE BLOOD (12/03/2002 6:00 AM PST) + + + + + + | Component | Value | Ref Range | Performed | Pathologist | | | | | At | Signature | + + + + + + | NANDO ICA, | 0.72 (L) | 1.14 - 1.32 | [facility] | | | WHOLE BLD | | mmol/L | DEPARTMENT | | | | | | OF | | | | | | PATHOLOGY | | + + + + + + | PH, WHOLE | 7.32 | | [facility] | | | BLOOD | | | DEPARTMENT | | | | | | OF | | | | | | PATHOLOGY | | + + + + + + | CALC ICA, | 0.68 (L) | 1.14 - 1.28 | [facility] | | | WHOLE BLD | | mmol/L | DEPARTMENT | | | | | | OF | | | | | | PATHOLOGY | | + + + + + + + + | Specimen | + + | | + + + + + | Narrative | Performed At | + + + | Ionized Calcium, Whole Blood | [facility] | | | DEPARTMENT OF | | | PATHOLOGY | + + + + + + + + | Performing | Address | City/State/Zipcode | Phone Number | | Organization | | | | + + + + + | [facility] DE[facility]MENT [facility] | [address] [facility] | [place] [address] | | | PATHOLOGY | [address] | | | + + + + + | [facility] DEPARTMENT OF | [address] [facility] | [place] [address] | | | PATHOLOGY | [address] | | | + + + + + GLUCOSE, WHOLE BLOOD (12/03/2002 6:00 AM PST) + +---------+ + + + | Component | Value | Ref Range | Performed | Pathologist | | | | | At | Signature | + +---------+ + + + | GLUCOSE,WHO | 216 (H) | 65 - 110 mg/dL | [facility] | | | LE BLOOD | | | DEPARTMENT | | | | | | OF | | | | | | PATHOLOGY | | + +---------+ + + + + + | Specimen | + + | | + + + + + + + | Performing | Address | City/State/Zipcode | Phone Number | | Organization | | | | + + + + + | [facility] DEPARTMENT OF | [address] | [place] [address] | | | PATHOLOGY | [address] | | | + + + + + | [facility] DEPARTMENT OF | [address] | [place] [address] | | | PATHOLOGY | [address] | | | + + + + + BASIC METABOLIC SET (12/03/2002 6:00 AM PST) + +---------+ + + + | Component | Value | Ref Range | Performed | Pathologist | | | | | At | Signature | + +---------+ + + + | GLUCOSE, | 265 (H) | 65 - 110 mg/dL | [facility] | | | PLASMA | | | DEPARTMENT | | | (LAB) | | | OF | | | | | | PATHOLOGY | | + +---------+ + + + | BUN, PLASMA | 11 | 6 - 20 mg/dL | [facility] | | | (LAB) | | | DEPARTMENT | | | | | | OF | | | | | | PATHOLOGY | | + +---------+ + + + | CREATININE | 0.4 (L) | 0.6 - 1.1 mg/dL | [facility] | | | PLASMA | | | DEPARTMENT | | | (LAB) | | | OF | | | | | | PATHOLOGY | | + +---------+ + + + | SODIUM, | 142 | 136 - 145 | [facility] | | | PLASMA | | mmol/L | DEPARTMENT | | | (LAB) | | | OF | | | | | | PATHOLOGY | | + +---------+ + + + | POTASSIUM, | 3.8 | 3.5 - 5.1 | [facility] | | | PLASMA | | mmol/L | DEPARTMENT | | | (LAB) | | | OF | | | | | | PATHOLOGY | | + +---------+ + + + | CHLORIDE, | 123 (H) | 98 - 107 mmol/L | [facility] | | | PLASMA | | | DEPARTMENT | | | (LAB) | | | OF | | | | | | PATHOLOGY | | + +---------+ + + + | TOTAL CO2, | 15 (L) | 23 - 29 mmol/L | [facility] | | | PLASMA | | | DEPARTMENT | | | (LAB) | | | OF | | | | | | PATHOLOGY | | + +---------+ + + + | CALCIUM, | 6.9 (*) | 8.5 - 10.5 | [facility] | | | PLASMA | | mg/dL | DEPARTMENT | | | (LAB) | | | OF | | | | | | PATHOLOGY | | + +---------+ + + + + + | Specimen | + + | | + + + + + | Narrative | Performed At | + + + | [id number] CALCIUM Checked and phoned. | [facility] | | | DEPARTMENT OF | | | PATHOLOGY | + + + + + + + + | Performing | Address | City/State/Zipcode | Phone Number | | Organization | | | | + + + + + | [facility] DEPARTMENT OF | [address] | [place] [address] | | | PATHOLOGY | [address] | | | + + + + + | [facility] DEPARTMENT OF | [address] | [place] [address] | | | PATHOLOGY | [address] | | | + + + + + CHEMISTRY MASTER PANEL (12/03/2002 6:00 AM PST) + + | Specimen | + + | | + + + + + | Narrative | Performed At | + + + | [id number] CALCIUM Checked and phoned. | [facility] | | | DEPARTMENT OF | | | PATHOLOGY | + + + + + + + + | Performing | Address | City/State/Zipcode | Phone Number | | Organization | | | | + + + + + | [facility] DEPARTMENT OF | [address] | [place] [address] | | | PATHOLOGY | [address] | | | + + + + + | [facility] DEPARTMENT OF | [address] | [place] [address] | | | PATHOLOGY | [address] | | | + + + + + BASIC METABOLIC SET (12/03/2002 2:20 AM PST) + +---------+ + + + | Component | Value | Ref Range | Performed | Pathologist | | | | | At | Signature | + +---------+ + + + | GLUCOSE, | 359 (H) | 65 - 110 mg/dL | [facility] | | | PLASMA | | | DEPARTMENT | | | (LAB) | | | OF | | | | | | PATHOLOGY | | + +---------+ + + + | BUN, PLASMA | 13 | 6 - 20 mg/dL | [facility] | | | (LAB) | | | DEPARTMENT | | | | | | OF | | | | | | PATHOLOGY | | + +---------+ + + + | CREATININE | 0.6 | 0.6 - 1.1 mg/dL | [facility] | | | PLASMA | | | DEPARTMENT | | | (LAB) | | | OF | | | | | | PATHOLOGY | | + +---------+ + + + | SODIUM, | 137 | 136 - 145 | [facility] | | | PLASMA | | mmol/L | DEPARTMENT | | | (LAB) | | | OF | | | | | | PATHOLOGY | | + +---------+ + + + | POTASSIUM, | 4.4 | 3.5 - 5.1 | [facility] | | | PLASMA | | mmol/L | DEPARTMENT | | | (LAB) | | | OF | | | | | | PATHOLOGY | | + +---------+ + + + | CHLORIDE, | 110 (H) | 98 - 107 mmol/L | [facility] | | | PLASMA | | | DEPARTMENT | | | (LAB) | | | OF | | | | | | PATHOLOGY | | + +---------+ + + + | TOTAL CO2, | 17 (L) | 23 - 29 mmol/L | [facility] | | | PLASMA | | | DEPARTMENT | | | (LAB) | | | OF | | | | | | PATHOLOGY | | + +---------+ + + + | CALCIUM, | 8.5 | 8.5 - 10.5 | [facility] | | | PLASMA | | mg/dL | DEPARTMENT | | | (LAB) | | | OF | | | | | | PATHOLOGY | | + +---------+ + + + + + | Specimen | + + | | + + + + + + + | Performing | Address | City/State/Zipcode | Phone Number | | Organization | | | | + + + + + | [facility] DEPARTMENT OF | [address] | [place] [address] | | | PATHOLOGY | [address] | | | + + + + + | [facility] DEPARTMENT OF | [address] | [place] [address] | | | PATHOLOGY | [address] | | | + + + + + MAGNESIUM, PLASMA (12/03/2002 2:20 AM PST) + +-------+ + + + | Component | Value | Ref Range | Performed | Pathologist | | | | | At | Signature | + +-------+ + + + | MAGNESIUM,P | 1.9 | 1.8 - 2.5 mg/dL | [facility] | | | LASMA | | | DEPARTMENT | | | | | | OF | | | | | | PATHOLOGY | | + +-------+ + + + + + | Specimen | + + | | + + + + + + + | Performing | Address | City/State/Zipcode | Phone Number | | Organization | | | | + + + + + | [facility] | [address] | [place] [address] | | | PATHOLOGY | [address] | | | + + + + + | [facility] | [address] | [place] [address] | | | PATHOLOGY | [address] | | | + + + + + PHOSPHORUS, PLASMA (12/03/2002 2:20 AM PST) + +---------+ + + + | Component | Value | Ref Range | Performed | Pathologist | | | | | At | Signature | + +---------+ + + + | PHOSPHORUS, | 2.1 (L) | 2.5 - 5.0 mg/dL | [facility] | | | PLASMA | | | DEPARTMENT | | | (LAB) | | | OF | | | | | | PATHOLOGY | | + +---------+ + + + + + | Specimen | + + | | + + + + + + + | Performing | Address | City/State/Zipcode | Phone Number | | Organization | | | | + + + + + | [facility] DEPARTMENT OF | [address] | [place] [address] | | | PATHOLOGY | [address] | | | + + + + + | [facility] DEPARTMENT OF | [address] | [place] [address] | | | PATHOLOGY | [address] | | | + + + + + BASIC METABOLIC SET (12/02/2002 10:00 PM PST) + +---------+ + + + | Component | Value | Ref Range | Performed | Pathologist | | | | | At | Signature | + +---------+ + + + | GLUCOSE, | 359 (H) | 65 - 110 mg/dL | [facility] | | | PLASMA | | | DEPARTMENT | | | (LAB) | | | OF | | | | | | PATHOLOGY | | + +---------+ + + + | BUN, PLASMA | 17 | 6 - 20 mg/dL | [facility] | | | (LAB) | | | DEPARTMENT | | | | | | OF | | | | | | PATHOLOGY | | + +---------+ + + + | CREATININE | 0.8 | 0.6 - 1.1 mg/dL | [facility] | | | PLASMA | | | DEPARTMENT | | | (LAB) | | | OF | | | | | | PATHOLOGY | | + +---------+ + + + | SODIUM, | 135 (L) | 136 - 145 | [facility] | | | PLASMA | | mmol/L | DEPARTMENT | | | (LAB) | | | OF | | | | | | PATHOLOGY | | + +---------+ + + + | POTASSIUM, | 4.5 | 3.5 - 5.1 | [facility] | | | PLASMA | | mmol/L | DEPARTMENT | | | (LAB) | | | OF | | | | | | PATHOLOGY | | + +---------+ + + + | CHLORIDE, | 108 (H) | 98 - 107 mmol/L | [facility] | | | PLASMA | | | DEPARTMENT | | | (LAB) | | | OF | | | | | | PATHOLOGY | | + +---------+ + + + | TOTAL CO2, | 14 (L) | 23 - 29 mmol/L | [facility] | | | PLASMA | | | DEPARTMENT | | | (LAB) | | | OF | | | | | | PATHOLOGY | | + +---------+ + + + | CALCIUM, | 8.6 | 8.5 - 10.5 | [facility] | | | PLASMA | | mg/dL | DEPARTMENT | | | (LAB) | | | OF | | | | | | PATHOLOGY | | + +---------+ + + + + + | Specimen | + + | | + + + + + + + | Performing | Address | City/State/Zipcode | Phone Number | | Organization | | | | + + + + + | [facility] | [address] [facility] [facility] | [place] [address] | | | PATHOLOGY | [address] | | | + + + + + | [facility] | [address] [facility] | [place] [address] | | | PATHOLOGY | [address] | | | + + + + + HEMOGLOBIN A1C (12/02/2002 6:45 PM PST) + + + + + + | Component | Value | Ref Range | Performed | Pathologist | | | | | At | Signature | + + + + + + | HEMOGLOBIN | 14.0 (H)Comment: | <5.8 % | | | | A1C | New Reference Ranges | | | | | | effective 09/27/02. | | | | | | Non-Diabetic: | | | | | | | | | | | | 4.0-5.7 % | | | | | | Diabetic: Low risk | | | | | | of complications: | | | | | | <7.0 % | | | | | | Intermediate risk of | | | | | | complications 7.0-7.9 | | | | | | % High risk of | | | | | | complications | | | | | | >7.9 % | | | | | | Test performed by Mercedes | | | | | | [facility] | | | | | | Danii. | | | | + + + + + + + + | Specimen | + + | | + + + + + + + | Performing | Address | City/State/Zipcode | Phone Number | | Organization | | | | + + + + + | [facility] | [address] | [place] [address] | | | LABORATORY | | | | + + + + + BLOOD GASES, VENOUS (12/02/2002 6:45 PM PST) + + + + + + | Component | Value | Ref Range | Performed | Pathologist | | | | | At | Signature | + + + + + + | PAT TEMP | 36.9 | Degree C | [facility] | | | VENOUS | | | DEPARTMENT | | | | | | OF | | | | | | PATHOLOGY | | + + + + + + | FIO2 VENOUS | RA | | [facility] | | | | | | DEPARTMENT | | | | | | OF | | | | | | PATHOLOGY | | + + + + + + | PH VENOUS | 7.19 (L) | 7.35 - 7.45 | [facility] | | | | | | DEPARTMENT | | | | | | OF | | | | | | PATHOLOGY | | + + + + + + | PCO2 VENOUS | 33 (L) | 35 - 50 mmHg | [facility] | | | | | | DEPARTMENT | | | | | | OF | | | | | | PATHOLOGY | | + + + + + + | PO2 VENOUS | 34 | 30 - 55 mmHg | [facility] | | | | | | DEPARTMENT | | | | | | OF | | | | | | PATHOLOGY | | + + + + + + | BASE EXCESS | -15.2 | | [facility] | | | VENOUS | | | DEPARTMENT | | | | | | OF | | | | | | PATHOLOGY | | + + + + + + | HCO3 VENOUS | 12 (L) | 22 - 28 mmol/L | [facility] | | | | | | DEPARTMENT | | | | | | OF | | | | | | PATHOLOGY | | + + + + + + | TOTAL CO2 | 13 (L) | 23 - 29 mmol/L | [facility] | | | VENOUS | | | DEPARTMENT | | | | | | OF | | | | | | PATHOLOGY | | + + + + + + | O2 SAT, | 62.4 | % | [facility] | | | VENOUS | | | DEPARTMENT | | | | | | OF | | | | | | PATHOLOGY | | + + + + + + + + | Specimen | + + | | + + + + + | Narrative | Performed At | + + + | Venous Blood Gas Blood Gas results corrected for | [facility] | | patient's temp when available | DEPARTMENT OF | | | PATHOLOGY | + + + + + + + + | Performing | Address | City/State/Zipcode | Phone Number | | Organization | | | | + + + + + | [facility] DEPARTMENT OF | [facility] | [place] [address] | | | PATHOLOGY | [address] | | | + + + + + | [facility] DEPARTMENT OF | [facility] | [place] [address] | | | PATHOLOGY | [address] | | | + + + + + COMP METABOLIC SET (12/02/2002 6:45 PM PST) + +---------+ + + + | Component | Value | Ref Range | Performed | Pathologist | | | | | At | Signature | + +---------+ + + + | GLUCOSE, | 286 (H) | 65 - 110 mg/dL | [facility] | | | PLASMA | | | DEPARTMENT | | | (LAB) | | | OF | | | | | | PATHOLOGY | | + +---------+ + + + | BUN, PLASMA | 19 | 6 - 20 mg/dL | [facility] | | | (LAB) | | | DEPARTMENT | | | | | | OF | | | | | | PATHOLOGY | | + +---------+ + + + | CREATININE | 0.9 | 0.6 - 1.1 mg/dL | [facility] | | | PLASMA | | | DEPARTMENT | | | (LAB) | | | OF | | | | | | PATHOLOGY | | + +---------+ + + + | TOTAL | 6.2 | 5.9 - 8.2 g/dL | [facility] | | | PROTEIN, | | | DEPARTMENT | | | PLASMA | | | OF | | | (LAB) | | | PATHOLOGY | | + +---------+ + + + | ALBUMIN, | 3.2 (L) | 3.5 - 4.7 g/dL | [facility] | | | PLASMA | | | DEPARTMENT | | | (LAB) | | | OF | | | | | | PATHOLOGY | | + +---------+ + + + | CALCIUM, | 8.7 | 8.5 - 10.5 | [facility] | | | PLASMA | | mg/dL | DEPARTMENT | | | (LAB) | | | OF | | | | | | PATHOLOGY | | + +---------+ + + + | BILIRUBIN | 1.1 | 0.3 - 1.2 mg/dL | [facility] | | | TOTAL | | | DEPARTMENT | | | | | | OF | | | | | | PATHOLOGY | | + +---------+ + + + | ALK PHOS | 204 | 110 - 440 U/L | [facility] | | | | | | DEPARTMENT | | | | | | OF | | | | | | PATHOLOGY | | + +---------+ + + + | AST(SGOT) | 13 (L) | 18 - 36 U/L | [facility] | | | | | | DEPARTMENT | | | | | | OF | | | | | | PATHOLOGY | | + +---------+ + + + | SODIUM, | 133 (L) | 136 - 145 | [facility] | | | PLASMA | | mmol/L | DEPARTMENT | | | (LAB) | | | OF | | | | | | PATHOLOGY | | + +---------+ + + + | POTASSIUM, | 4.2 | 3.5 - 5.1 | [facility] | | | PLASMA | | mmol/L | DEPARTMENT | | | (LAB) | | | OF | | | | | | PATHOLOGY | | + +---------+ + + + | CHLORIDE, | 102 | 98 - 107 mmol/L | [facility] | | | PLASMA | | | DEPARTMENT | | | (LAB) | | | OF | | | | | | PATHOLOGY | | + +---------+ + + + | TOTAL CO2, | 10 (*) | 23 - 29 mmol/L | [facility] | | | PLASMA | | | DEPARTMENT | | | (LAB) | | | OF | | | | | | PATHOLOGY | | + +---------+ + + + | ALT (SGPT) | 11 (L) | 13 - 48 U/L | [facility] | | | | | | DEPARTMENT | | | | | | OF | | | | | | PATHOLOGY | | + +---------+ + + + + + | Specimen | + + | | + + + + + | Narrative | Performed At | + + + | [id number] Checked and phoned. CO2 [id number] Checked and phoned. | [facility] | | | DEPARTMENT OF | | | PATHOLOGY | + + + + + + + + | Performing | Address | City/State/Zipcode | Phone Number | | Organization | | | | + + + + + | [facility] DEPARTMENT OF | [id number] | [place] [address] | | | PATHOLOGY | [address] | | | + + + + + | [facility] DEPARTMENT OF | [address] | [place] [address] | | | PATHOLOGY | [address] | | | + + + + + MAGNESIUM, PLASMA (12/02/2002 6:45 PM PST) + +-------+ + + + | Component | Value | Ref Range | Performed | Pathologist | | | | | At | Signature | + +-------+ + + + | MAGNESIUM,P | 1.8 | 1.8 - 2.5 mg/dL | [facility] | | | [facility] | | | DEPARTMENT | | | | | | OF | | | | | | PATHOLOGY | | + +-------+ + + + + + | Specimen | + + | | + + + + + | Narrative | Performed At | + + + | [id number] Checked and phoned. CO2 [id number] Checked and phoned. | [facility] | | | DEPARTMENT OF | | | PATHOLOGY | + + + + + + + + | Performing | Address | City/State/Zipcode | Phone Number | | Organization | | | | + + + + + | [facility] DEPARTMENT OF | [id number] | [place] [address] | | | PATHOLOGY | [address] | | | + + + + + | [facility] DEPARTMENT OF | [address] | [place] [address] | | | PATHOLOGY | [address] | | | + + + + + PHOSPHORUS, PLASMA (12/02/2002 6:45 PM PST) + +-------+ + + + | Component | Value | Ref Range | Performed | Pathologist | | | | | At | Signature | + +-------+ + + + | PHOSPHORUS, | 3.0 | 2.5 - 5.0 mg/dL | [facility] | | | PLASMA | | | DEPARTMENT | | | (LAB) | | | OF | | | | | | PATHOLOGY | | + +-------+ + + + + + | Specimen | + + | | + + + + + | Narrative | Performed At | + + + | [id number] Checked and phoned. CO2 [id number] Checked and phoned. | [facility] | | | DEPARTMENT OF | | | PATHOLOGY | + + + + + + + + | Performing | Address | City/State/Zipcode | Phone Number | | Organization | | | | + + + + + | [facility] DEPARTMENT OF | [address] [facility] | [place] [address] | | | PATHOLOGY | [address] | | | + + + + + | [facility] DEPARTMENT OF | [address] [facility] [facility] | [place] [address] | | | PATHOLOGY | [address] | | | + + + + + CHEMISTRY MASTER PANEL (12/02/2002 6:45 PM PST) + + | Specimen | + + | | + + + + + | Narrative | Performed At | + + + | [id number] Checked and phoned. CO2 [id number] Checked and phoned. | [facility] | | | DEPARTMENT OF | | | PATHOLOGY | + + + + + + + + | Performing | Address | City/State/Zipcode | Phone Number | | Organization | | | | + + + + + | [facility] DEPARTMENT OF | [facility] | [place] [address] | | | PATHOLOGY | [address] | | | + + + + + | [facility] DE[facility]MENT OF | [facility] | [place] [address] | | | PATHOLOGY | [address] | | | + + + + + documented in this encounter Visit Diagnoses Not on filedocumented in this encounter"
--- OUTSIDE RECORDS SUMMARY | ~2020-03-21 | XMS | Encounter Summary ---
Demographics + + + | Address | [address] | | | [place] [address] | + + + | Home Phone | | + + + | Preferred Language | Unknown | + + + | Marital Status | Single | + + + | Confucianist Affiliation | NON | + + + [...] | Samantha Ramos | ECON | [address] | | | | | [place] | | | | | [address] | | + + + + + Care Team Providers + +------+ + | Care Senior Network Systems Engineer Name | Role | Phone | [...] + + + | Closed | | Ophthalmology | Diagnoses | Aroldo | Rafal Comp | | | | | Type 1 | Mallika Willis, | Oph Res Chh1 | | | | | diabetes, | MD [address] | [address] | | | | | uncontrolled | [address] | Wendy | | | | | , with renal | Zena Todd | Mailcode: | | | | | | [place], [place] | [address] | | | | | manifestatio | [address] | for Health | | | | | n ([facility]) | Phone: | and Healing, | | | | | Procedures | [phone] | Building 1, | | | | | CONSULT TO | Fax: | 11th Floor | | | | | OPHTHALMOLOG | [phone] | [place], [place] | | | | | Y | | [address] | | | | | | | Phone: | | | | | | | [phone] | | | | | | | Fax: | | | | | | | [phone] | +--------+--------+ + + + + Reason for Visit + + + | Reason | Comments | + + + | Diabetes mellitus | | | type 1 | | + + + Consultation (Routine) +--------+--------+ + + + + | Status | Reason | Specialty | Diagnoses / | Referred By | Referred To | | | | | Procedures | Contact | Contact | +--------+--------+ + + + + | Closed | | Endocrinology | Diagnoses | [facility] | | | | Diabetes & | Diabetic | MD Eunice | Adult Ppv | | | | Metabolism | ketoacidosis | [address] | [address] | | | | | without | [address] | [address] | | | | | coma | Rd | Physician's | | | | | associated | [place], [place] | [address] | | | | | with type 1 | [address] | [address] | | | | | diabetes | Phone: | [place], [place] | | | | | mellitus | [phone] | [address] | | | | | (HCC) Type | Fax: | Phone: | | | | | 1 diabetes | [phone] | [phone] | | | | | mellitus | | Fax: | | | | | with | | [phone] | | | | | hyperglycemi | | | | | | | a (HCC) | | | | | | [...] Description | +--------+---------+ + + + | 09/15/ | Office | Efrain Clarke | Mallika Kendrick, | Type 1 diabetes, | | 2015 | Visit | Diabetes Health | MD [address] | uncontrolled, with | | | | [facility] | [address] | renal manifestation | | | | [address] | [place], [place] | ([facility]) (Primary Dx); | | | | [address] | [address] | Hyperglycemia due to | | | | [facility] | [phone] | type 1 diabetes | | | | [address] [place], | | mellitus (HCC); Leg | | | | [place] [address] | | wound, right, | | | | [phone] | | initial encounter | +--------+---------+ + + + Social History [...] + + + | Blood Pressure | 126/64 | 09/15/2015 9:42 AM | | | | | PST | | + + + + + | Pulse | 110 | 09/15/2015 9:42 AM | | | | | PST [...] + + + + | Weight | 69.4 kg (153 lb 1.6 | 09/15/2015 9:42 AM | | | | oz) | PST | | + + + + + | Height | 188 cm (6' 2") | 09/15/2015 9:42 AM | | | | | PST | | + + + + + | Body Mass Index | 19.66 | 09/15/2015 9:42 AM | | | | | PST | | + + + + + documented in this encounter Patient Instructions Patient Instructions Mallika Kendrick MD - 09/15/2015 10:13 AM PSTRecommend bacitracin an d cover wound on leg daily after your shower Please contact your primary care provider as soon as possible if you have worsening redness or pain in that area P ST documented in this encounter Progress Notes Mallika Kendrick MD - 09/17/2015 9:25 AM PSTFormatting of this note might be different f rom the original. [facility] Diabetes Clinic New Patient Consultation Referring physician: Jaison Pascual DO Primary care provider: Jaison Pascual DO Reason for Consultation: Type 1 diabetes History of Present Illness: This is a new patient to my clinic. Brooks Marquez II is a 24 y.o. male referred for evaluation of type 1 diabetes. Diagnosed in 2001. Seen in childhood in [facility] pediatric endocr inology. Long-standing suboptimal control. Diabetes complicated by gastroparesis and has bee n seen in the ER frequently. Multiple past episodes of DKA, most recently earlier this month at [facility]. Frequent nausea. Doing well since discharge and no current issues with vomiting. N o numbness/tingling. Did not have insurance for a period of time and was paying out of [employer] for his insulin approx 1 year ago which was a major struggle. Now insured. + mild hypoglyc emia - 1-2 times per week typically in the morning. Insulin: Lantus 40 units every evening Humalog 1:15 grams, 1:50 over 200 - uncertain about carb counting, taking 7-8 units prior t o meals Did not bring meter in - has only 2 values on new meter Past Medical & Surgical History: Past Medical History Diagnosis Date Type 1 diabetes mellitus (HCC) Dx age 11. No known complications aside from suspected gastroparesis. Last A1c unknown. Chronic epigastric pain Suspected gastroparesis. EGD negative Past Surgical History Procedure Laterality Date Elbow surgery Family History: Non-contributory Social History: Here today with roommate. + tobacco use: 1/2 ppd. 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 Allergies: Allergies Allergen Reactions Codeine Nausea and Vomiting Current Medications: Current outpatient prescriptions: acetaminophen 500 mg oral tablet, Take 1 tablet by mouth every four hours as needed for up to 30 days. Will need to get additional refills (if indica alissa) from PCP or specialist, Disp: 100 tablet, Rfl: 0 Blood Sugar Diagnostic (ASCENSIA MICROFILL) In Vitro Strip, use to test blood glucose 5x da lucian, Disp: 150, Rfl: 1 glucagon 1 mg/mL injection recon soln, Inject 1 mg into the muscle (IM) as needed for hypog lycemia (CBG less than 70 mg/dL)., Disp: 1 each, Rfl: 0 HYDROcodone-acetaminophen 10-325 mg oral tablet, Take 1 tablet by mouth every four hours as needed. Not to exceed 3250 mg of acetaminophen from all products per 24 hour period., Disp: , Rfl: insulin glargine (LANTUS) 100 unit/mL subcutaneous solution, Inject 40 Units under the skin (SUBC) once daily in the morning., Disp: 3 vial, Rfl: 11 insulin lispro (HUMALOG) 100 unit/mL subcutaneous solution, Up to 50 units per day in divid ed doses as directed, Disp: 30 mL, Rfl: 11 Insulin Syringe-Needle U-100 (BD ULTRAFINE INSULIN) 1 mL 31 x 5/16" Misc.(Non-Drug; Combo R oute) Syringe, administer lantus as recommended by physician, Disp: 1 box, Rfl: 6 lisinopril 10 mg oral tablet, Take 1 tablet by mouth once daily for 30 days. Will need to g et additional refills (if indicated) from PCP or specialist, Disp: 30 tablet, Rfl: 0 metoclopramide HCl 10 mg oral tablet, Take 10 mg by mouth every six hours as needed for johnny sea/vomiting., Disp: , Rfl: omeprazole 40 mg oral capsule,delayed release(DR/EC), Take 40 mg by mouth once daily., Disp : , Rfl: ondansetron ODT 8 mg oral tablet,disintegrating, Dissolve 8 mg in mouth every twelve hours as needed., Disp: , Rfl: ROS: A full 10 system ROS was obtained as part of the patient intake questionnaire. ROS as note d in the HPI, the remainder of the full 10 system ROS was reviewed and is otherwise unremark able, and will be incorporated as a scanned document in the electronic medical record. Physical Examination: General: NAD VS: BP 126/64 | Pulse 110 | Ht 1.88 m (6' 2") | Wt 69.446 kg (153 lb 1.6 oz) | BMI 19.65 k g/(m^2) Pain level: Patient reports a pain level of 0 today. HEENT: PERRL, + dental decay Neck: Thyroid WNL CV: RRR, no m/r/g Chest: CTAB Abdomen: Soft, nontender, no palpable liver/spleen tip EXT: Reduced hair in lower extremities Skin: Eschar overlying wound on R lateral leg (see media tab), + dry skin Neuro: Sensation intact (10/10 on monofilament testing in feet) Psychiatric: Normal mood Labs: External A1C 10% Albumin, urine, random - Final result (09/02/2015 8:48 AM [facility]) Component Value Range Microalb, Ur 1337.2 (H) 0.0-29.0 mg/L Creatinine, Random U 130.5 No Ref Range mg/dL Microalb Creat Ratio 1025 (H) 0-25 mg/G Lab Results Component Value Date A1C 11.0 11/01/2007 A1C 11.1 11/02/2006 A1C 10.1 08/27/2005 A1C 14.0 12/02/2002 Lab Results Component Value Date NA 141 09/15/2015 K 3.8 09/15/2015 CL 105 09/15/2015 BICARB 31 09/15/2015 BUN 13 09/15/2015 CR 0.79 09/15/2015 GLU 153 09/15/2015 CA 8.8 09/15/2015 AST 23 08/25/2015 ALT 37 08/25/2015 AP 111 08/25/2015 TBILI 0.4 08/25/2015 TP 7.1 08/25/2015 ALB 3.3 08/25/2015 Lab Results Component Value Date WBC 7.52 08/25/2015 HB 14.6 08/25/2015 HCT 43 08/25/2015 PLT 290 08/25/2015 MCV 88.7 08/25/2015 RDW 40.9 08/25/2015 Lab Results Component Value Date MICROALBUMIN 252 11/02/2006 Lab Results Component Value Date CHOL 193 08/26/2015 LDL 133 08/26/2015 HDL 37 08/26/2015 TRI 115 08/26/2015 Lab Results Component Value Date TSH 0.61 08/27/2005 Assessment: E10.29 Type 1 diabetes, uncontrolled, with renal manifestation (HCC) E10.65 Hyperglycemia due to type 1 diabetes mellitus ([facility]) S81.801A Leg wound, right, initial encounter A1C chronically elevated. Work towards teaching him carb counting, use of correction dose. BP within goal. Significant albuminuria. Will recheck BMP as recently started on ACEI, titra alissa as able. No indication for statin currently. Overdue for eye exam. Normal monofilament ( Aug 2015), but has R leg wound and reduced hair in lower extremities. 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 Discussed conservative measures for wound and signs/symptoms to call for. Up to date on flu vaccination and pneumovax. Has gastroparesis, on Reglan. Plan: Recommend bacitracin and cover wound on leg daily after your shower Please contact your primary care provider as soon as possible if you have worsening redness or pain in that area Check blood sugars four times daily (before each meal and at bedtime) Bring meter to all appointments Keep appointment with Daniel Crane to review carb counting, use of correction insulin Orders Placed This Encounter BASIC METABOLIC SET (NA, K, CL, TCO2, BUN, CR, GLU, CA) CONSULT TO OPHTHALMOLOGY insulin glargine (LANTUS) 100 unit/mL subcutaneous solution insulin lispro (HUMALOG) 100 unit/mL subcutaneous solution Insulin Syringe-Needle U-100 1/2 mL 30 x 5/16" syringe Return in about 3 months (around 12/15/2015). Mallika Kendrick MD documented in this encounter Plan of Treatment Not on filedocumented as of this encounter Results BASIC METABOLIC SET (NA, [...] | | | LABORATORY | | | MALDIVIAN | | | SERVICES, | | | [...] + + + + + | [facility] | [address] | [place] [address] | | | SERVICES, CORE | [address] | | | + + + + + documented in this encounter Visit Diagnoses + + | Diagnosis | + + | Type 1 diabetes, uncontrolled, with renal manifestation (HCC) - Primary Type I | | (juvenile type) diabetes mellitus with renal manifestations, uncontrolled | + + | Hyperglycemia due to type 1 diabetes mellitus (HCC) | + + | Leg wound, right, initial encounter | + + documented in this encounter
--- OUTSIDE RECORDS SUMMARY | ~2020-03-21 | XMS | Encounter Summary ---
Demographics + + + | Address | [address] | | | [place] [address] | + + + | Home Phone | | + + + | Preferred Language | Unknown | + + + | Marital Status | Single | + + + | Faith Affiliation | Unknown | + + + | Race | Unknown | + + + | Ethnic Group | Unknown | + + + Author + + + | Author | [facility] | | | and [place] | + + + | Organization | [facility] | | [...] [place] | | | | | [address] | | + + + + + Care Team Providers + +------+ + | Care Cigarette Machines Mechanic Name | Role | Phone | + +------+ + | Emmanuel Saavedra PCP | | + +------+ + Encounter Details +--------+ + + + + | Date | Type | Department | Care Team | Description | +--------+ + + + + | 01/10/ | Imaging | [facility] | Provider, | | | 2020 | Exam | [facility] | MD [address] | | | | | IMAGING [address] | [address] | | | | | [address] [place] | [place] [address] | | | | | [place] [address] | | | | | | [phone] | | | +--------+ + + + [...] 2019 | Visit | | [address] [facility] | | | | | | [address] [place], [place] | | | | | | [address] | | | | | | | | +--------+---------+ + + + documented as of this encounter Procedures + +--------+ + + + | Procedure Name | Priori | Date/Time | Associated Diagnosis | Comments | | | ty | | | | + +--------+ + + + | XR CHEST 1 VIEW | Routin | 01/05/2020 | | Results for this | | | e | 12:00 AM | | procedure are in the | | | | PDT | | results section. | + +--------+ + + + documented in this encounter Results XR Chest 1 Vw (01/05/2020 12:00 AM PDT) + + | Specimen [...]
--- OUTSIDE RECORDS SUMMARY | ~2020-03-21 | XMS | Encounter Summary ---
Demographics + + + | Address | [address] | | | [place] [address] | + + + | Home Phone | | + + + | Preferred Language | Unknown | + + + | Marital Status | Single | + + + | Gnosticist Affiliation | Unknown | + + + | Race | Unknown | + + + | Ethnic Group | Unknown | + + + Author + + + | Author | [facility] | | | and [place] | + + + | Organization | [facility] | | | [...] [place] | | | | | [address] | | + + + + + Care Team Providers + +------+ + | Care Light Bulb Replacer Name | Role | Phone | + +------+ + | Erich Yates | PCP | | + +------+ + Encounter Details +--------+ + + + + | Date | Type | Department | Care Team | Description | +--------+ + + + + | 03/16/ | Orders Only | [facility] | Winston Whitman MD | | | 2018 | | NEPHROLOGY [place] | [address] [place] | | | | | [address] [place] | [address] [place], [place] | | | | | [address] [place], [place] | [address] | | | | | [address] | | | | | | [phone] | | | +--------+ + + + [...] 2019 | Visit | | [address] [facility] | | | | | | [facility] | | | | | | [address] | | | | | | | | +--------+---------+ + + + documented as of this encounter Procedures + +--------+ + + + | Procedure Name | Priori | Date/Time | Associated Diagnosis | Comments | | | ty | | | | + +--------+ + + + | EXTERNAL LAB: [facility] | Routin | 03/16/2019 | | Results [...] | | | LAB | | | [facility] [place] | | | | | + + [...]
--- OUTSIDE RECORDS SUMMARY | ~2020-03-21 | XMS | Encounter Summary ---
Demographics + + + | Address | [address] | | | [place] [address] | + + + | Home Phone [...] Author + + + | Author | [facility] | + + + | Organization | [facility] | + + + | Address | Unknown | + + + | Phone | Unavailable | + + + Support + + + + + | Name | Relationship | Address | Phone | + + + + + | Samantha Ramos | ECON | [address] | | | | | [place] | | | | | [address] | | + + + + + Care Team Providers + +------+ + | Care In School Suspension Aide Name | Role | Phone | [...] | | | | [facility] | [place], [place] | | | | | [address] | [address] | | | | | [place] | [phone] | | | | | [place], [place] | | | | | | [address] | | | | | | [phone] | | | +--------+ + + + [...] - [facility] | [address] | [place], [place] | | | [facility] | [address] | [address] | | | TESTS | | | | + + + + + | [facility] | [address] | [place], [place] | | | TESTS | [facility] | [address] | | + + + + + documented in this encounter Visit Diagnoses Not on filedocumented in this encounter"
--- OUTSIDE RECORDS SUMMARY | ~2020-03-21 | XMS | Encounter Summary ---
Demographics + + + | Address | [address] | | | [place] [address] | + + + | Home Phone | | + + + | Preferred Language | Unknown | + + + | Marital Status | Single | + + + | Advent Affiliation | NON | + + + | Race | White | + + + | Ethnic Group | Not or | + + + Author + + + | Author | [facility] | + + + | Organization | [facility] | + + + | Address | Unknown | + + + | Phone | Unavailable | + + + Support + + + + + | Name | Relationship | Address | Phone | + + + + + | Samantha Ramos | ECON | [address] | | | | | [place] | | | | | [address] | | + + + + + Care Team Providers + +------+ + | Care Delinquent Tax Collector Assistant Name | Role | Phone | + +------+ + | Erich Yates PA-C | PCP | | + +------+ + Reason for Visit + + + | Reason | Comments | + + + | Need To Cancel | | | Appointment | | + + + Encounter Details +--------+ + + + + | Date | Type | Department | Care Team | Description | +--------+ + + + + | 08/30/ | Telephone | [facility] | Neri Steven MD | Need To Cancel | | 2019 | | Center at [facility] [address] | [address] | Appointment | | | | [address] | [address] [facility], | | | | | Mailcode: [place] | [place] [address] | | | | | for Health and | [phone] | | | | | [facility] [address] | | | | | | [place], [place] | | | | | | [address] | | | | | | [phone] | | | +--------+ + + + [...]
--- OUTSIDE RECORDS SUMMARY | ~2020-03-21 | XMS | Encounter Summary ---
Demographics + + + | Address | [address] | | | [place] [address] | + + + | Home Phone | | + + + | Preferred Language | Unknown | + + + | Marital Status | Single | + + + | Rastafari Affiliation | Unknown | + + + | Race | Unknown | + + + | Ethnic Group | Unknown | + + + Author + + + | Author | [facility] | | | and [place] | + + + | Organization | [facility] | [...] [address] | | | | | [address] [place] | | | | | [address] | | + + + + + Care Team Providers + +------+ + | Care Sap Portal Developer Name | Role | Phone | + +------+ + | Emmanuel Saavedra PCP | | + +------+ + Encounter Details +--------+---------+ + + + | Date | Type | Department | Care Team | Description | +--------+---------+ + + + | 02/15/ | E-Visit | [facility] | Nyasia Roxie | | | 2019 | | NEPHROLOGY [address] | M, DO [address] | | | | | [address] | [address] [place] | | | | | [place], [place] | [place] [address] | | | | | [address] | [phone] | | | | | [phone] | | | +--------+---------+ + + + [...] 2019 | Visit | | [address] [facility] | | | | | | [address] [place], [place] | | | | | | [address] | | | | | | | | +--------+---------+ + + + documented as of this encounter Procedures + +--------+ + + + | Procedure Name | Priori | Date/Time | Associated Diagnosis | Comments | | | ty | | | | + +--------+ + + + | EXTERNAL LAB: | Routin | 02/15/2020 | | Results for this | | PROTEIN/CREATININE | e | | | procedure are in the | | RATIO | | | | results section. | + +--------+ + + + documented in this encounter Results External Lab: Protein/Creatinine Ratio (02/15/2020) + +---------+ + + + | Component | Value | Ref Range | Performed | Pathologist | | | | | At | Signature | + +---------+ + + + | Protein/Cre | 8,669.6 | mg/g | | | | atinine | | | | | | Ratio, | | | | | | External | | | | | + +---------+ + + + + + | Specimen | + + | | + + documented in this encounter Visit Diagnoses + + | Diagnosis | + + | Acute kidney injury superimposed on chronic kidney disease (HCC) - Primary | + + documented in this encounter Additional Health Concerns + + + + | Infection | Noted Time | Resolved Time | + + + + | Rule out COVID-19 | 02/16/2020 1:07 AM | 02/16/2020 2:16 AM | | | PDT | PDT | + + + + documented as of this encounter"
--- OUTSIDE RECORDS SUMMARY | ~2020-03-21 | XMS | Encounter Summary ---
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 Name | Role | Phone | [...] + + | 09/19/ | Surgery | [facility] | Tc Mora | CYSTOSCOPY W/ | | 2017 | | [facility] | MD [address] | URETEROSCOPY W/ | | | | [address] | [place] | LASER LITHOTRIPSY | | | | [place] | [id number] | WITH STENT PLACEMENT | | | | [address] | | | | | | [phone] | | | +--------+---------+ + + + [...] + + + | Blood Pressure | 94/60 | 09/19/2018 9:58 PM | | | | | PST | | + + + + + | Pulse | 72 | 09/19/2018 9:58 PM | | | | | PST | | + + + + + | Temperature | 36.6 C (97.9 F) | 09/19/2018 9:58 PM | | | | | PST | | + + + + + | Respiratory Rate | 16 | 09/19/2018 9:58 PM | | | | | PST | | + + + + + | Oxygen Saturation | 100% | 09/19/2018 9:58 PM | | | | | PST [...] 2 times daily. | | | | 0 | + + + +---------+ + + [...] | | | | tartrate (LOPRESSOR) | Daily. | | | | 0 | | 50 mg tablet | | [...] might be differ ent from the original. [facility] Urology Progress Note Brooks Marquez is now [...] DATE/TIME: 09/20/2018 8:24 documented in this encounter H&P Notes Tc Mora MD - 09/19/2018 8:23 PM PSTFormatting of this note might be differ ent from the original. No chief complaint on file. SANG Marquez is a 27 y.o. male patient of LEMUEL Anand here today for evaluation of f lank pain and kidney stone. Started having right flank pain last week. He presented to the ED where a CT scan was perf ormed. He was found to have a 5mm mid ureteral stone with moderate hydronephrosis. Eventua lly there able to get his pain under control and he was discharged on expulsion therapy. Over the coming days his pain was persistent and then over the last 2 days became severely worse. He complained of mild nausea no emesis. No gross hematuria no fever or chills. Vision does have a history of type I diabetes as well as chronic kidney disease. Assessment Right ureteral stone, hydronephrosis, Acute kidney injury, type 1 dm, intractable pain Plan Due the patient's intractable pain, acute kidney injury in the immunocompromised state due to type I diabetes I recommended the patient undergo right ureteroscopy laser lithotripsy an d stent. We discussed risks including pain, bleeding, infection, renal hematoma, ureteral p erforation, ureteral stricture, bladder injury, urethral stricture and need for further proc edures. Past Medical History Past Medical History: Diagnosis Date Arthritis Bowel dysfunction Diabetes (HCC) Dizziness Heart palpitations Hypertension Onychomycosis Retinopathy Stress headaches Past Surgical History Past Surgical History: Procedure Laterality Date No surgical history on file Family History: Family History Problem Relation Age of Onset Stroke Mother Thyroid disease Mother Heart disease Mother Hypertension Father Bipolar disorder Brother Heart disease Other Grandfather Hypertension Other Grandfather Colon cancer Other Grandfather Hypertension Other Congenital Heart Disease Other Stroke Other Other (see comment) Other Breast cancer gene BRCA mutation Diabetes Other Kidney disease Other Thyroid disease Other Bipolar disorder Other Social History: Social History Social History Marital status: Single Spouse name: N/A Number of children: N/A Years of education: N/A Social History Main Topics Smoking status: Current Every Day Smoker Smokeless tobacco: Not on file Alcohol use Not on file Comment: Not on file Drug use: Yes Types: Marijuana Sexual activity: Not on file Comment: Not on file Other Topics Concern Not on file Social History Narrative No narrative on file Allergies Allergen Reactions Codeine Nausea And Vomiting Reaction: Projectile vomit Medications: Current Facility-Administered Medications: influenza quadrivalent (FLUZONE, FLUARIX, AFLURIA QUADRIVALENT) vaccine injection (syr nadya) 0.5 mL, 0.5 mL, Intramuscular, One Time Vaccine, Tc Mora MD ROS Objective BP (!) 162/106 | Pulse 96 | Temp 35.7 C (96.2 F) (Oral) | Resp 16 | Ht 1.88 m (6' 2 ") | Wt 65.2 kg (143 lb 11.8 oz) | SpO2 100% | BMI 18.46 kg/m General Appearance: Alert, cooperative, no distress, appears stated age Head: Normocephalic, without obvious abnormality, atraumatic Eyes: conjunctiva/corneas clear, EOM's intact Throat: Lips, mucosa, and tongue normal; no gross deformities, poor dentition/no teeth Neck: Supple, symmetrical, no adenopathy Lungs: Regular, unlabored breathing MS Right sided CVA tenderness, no spinal tenderness, no scoliosis present Normal external genitalia, no erythema, edema or rash Abdomen: Soft, non-tender, no masses Extremities: Extremities normal, atraumatic, no cyanosis, clubbing, or edema Pulses: Radial pulses 2+ and symmetric Skin: Warm and dry Lymph nodes: Cervical and supraclavicular nodes normal Neurologic: Gait normal, CN 2-12 grossly intact; Strength and sensation grossly normal in b ilateral upper and lower extremities Data: CT scan the abdomen pelvis August 2018 I personally reviewed and interpreted CT scan images per significant for moderate right dameon ed hydronephrosis. There is approximately 5-6 mm midureteral stone. No other stones are se en. Normal renal parenchyma is noted. Patient was noted to have a creatinine of 1.96 with a baseline of 1.1-1.3. No results found for this or any previous visit. No results found for: LEMUEL Mcclure's notes were reviewed in clinic today. No Follow-up on file.. This document was generated in part using voice recognition software. Frequent wrong word or sound-alike substitutions may have occurred due to the inherent limitations of the voice recognition software. Although I have attempted to edit the content, I have not thoroughly proofread this note, and press set up errors are very likely to occur. CC: LEMUEL Anand documented in this encounter Consult Notes Allen Barnes MD - 09/20/2018 6:39 PM PSTFormatting of this note might be different fr om the original. [place] HOSPITALIST CONSULT NOTE Patient: Brooks Marquez : 1990: Age: 27 y.o. MedRec: [id number] Admission date: 09/19/2018 Hospital day # : 1 Physician author: Allen Barnes MD Today: 09/20/2018 Provider requesting consult: Dr. Mora Reason for consult: Hyperkalemia HISTORY OF PRESENT ILLNESS: This is a 27 y.o. male with a history of DM1 who presented for R flank pain and found to hooper ve a 5mm ureteral stone with moderate hydronephrosis s/p R URS, LL and stent on 09/19/18 the n found to be hyperkalemic. The patient on the morning following the procedure was found to have a potassium of 6.7. I was called for hyperkalemia. The patient was given kayexelate, ca lcium gluconate, albuterol, insulin/D50. Repeat BMP confirmed potassium level. The patient d enied symptoms and was at baseline. This includes N/V/D, chest pain, shortness of breath. PAST MEDICAL and SURGICAL HISTORY: Past Medical History: Diagnosis Date Arthritis Bowel dysfunction Diabetes (HCC) Dizziness Heart palpitations Hypertension Onychomycosis Retinopathy Stress headaches Past Surgical History: Procedure Laterality Date No surgical history on file URETEROSCOPY Right 09/19/2018 Procedure: CYSTOSCOPY W/ URETEROSCOPY W/ LASER LITHOTRIPSY WITH STENT PLACEMENT; Surgeon: Tc Mora MD; Location: [facility] MAIN OR FAMILY HISTORY: family history includes Bipolar disorder in his brother and another family member; Colon ca ncer in an other family member; Congenital Heart Disease in an other family member; Diabetes in an other family member; Heart disease in his mother and another family member; Hypertens ion in his father and other family members; Kidney disease in an other family member; Other (see comment) in an other family member; Stroke in his mother and another family member; Thy roid disease in his mother and another family member. SOCIAL HISTORY: reports that he has been smoking. He does not have any smokeless tobacco history on file. He reports that he uses drugs, including Marijuana. HOME MEDICATIONS: PT REPORTED TAKING NOT TAKING Medication Sig Last Dose Dispense Doc. Provider Furosemide (LASIX PO) Take 1 tablet by mouth 2 times daily. Historical Provider, HYDROcodone-acetaminophen (NORCO) 7.5-325 mg per tablet Take 1 tablet by mouth every 6 ravi rs as needed for Pain. Historical ProviderMD insulin glargine (LANTUS SOLOSTAR) 100 units/mL injection (pen) Inject 40 Units under the skin nightly. Historical Provider, insulin lispro (HUMALOG KWIKPEN) 100 units/mL injection (pen) Inject under the skin 3 ranjit es daily (before meals). Historical Provider, metoprolol tartrate (LOPRESSOR) 50 mg tablet Take 50 mg by mouth 2 times daily. Historic al Provider, ondansetron (ZOFRAN ODT) 8 mg disintegrating tablet Take 8 mg by mouth every 8 hours as ne eded for Nausea. Historical ProviderMD phytonadione (PHYTONADIONE) 100 MCG TABS Take 100 mcg by mouth 2 times daily. Historical Provider, ALLERGIES: Allergies Allergen Reactions Codeine Nausea And Vomiting Reaction: Projectile vomit CURRENT MEDICATIONS: No current facility-administered medications for this encounter. Current Outpatient Prescriptions Medication Sig Dispense Refill Furosemide (LASIX PO) Take 1 tablet by mouth 2 times daily. HYDROcodone-acetaminophen (NORCO) 7.5-325 mg per tablet Take 1 tablet by mouth every 6 hours as needed for Pain. insulin glargine (LANTUS SOLOSTAR) 100 units/mL injection (pen) Inject 40 Units under t he skin nightly. insulin lispro (HUMALOG KWIKPEN) 100 units/mL injection (pen) Inject under the skin 3 times daily (before meals). metoprolol tartrate (LOPRESSOR) 50 mg tablet Take 50 mg by mouth 2 times daily. ondansetron (ZOFRAN ODT) 8 mg disintegrating tablet Take 8 mg by mouth every 8 hours as needed for Nausea. phytonadione (PHYTONADIONE) 100 MCG TABS Take 100 mcg by mouth 2 times daily. REVIEW OF SYSTEMS: No pertinent positive ROS except as per H&P Most recent weight: Wt Readings from Last 1 Encounters: 09/19/18 65.2 kg (143 lb 11.8 oz) Input and output for last 24hrs: I/O last 24 Hours: In: 2200 [I.V.:2200] Out: 328 [Urine:325; Blood:3] Vitals Ranges: Temp: [35.3 C (95.5 F)-36.8 C (98.2 F)] 36.3 C (97.3 F) Pulse: [72-120] 120 Resp: [10-22] 20 BP: (94-162)/(60-110) 130/70 Vitals: Temp: 36.3 C (97.3 F) BP: 130/70 Pulse: 120 Resp: 20 SpO2: 99 % SpO2 99 % on room air at flow rate L/min PHYSICAL EXAMINATION: Constitutional AAOX3 Eye No conjunctivitis nor scleral icterus ENT Unremarkable oral ear and nose Neck No adenopathy, thyromegaly nor masses Lymph node exam Negative in the following areas: neck and epitrochlear Cardiac S1, S2 present, no murmurs Lung CTA throughout Abdomen + BS, Soft, NT, no HSM nor masses Psych Episodic periods of irate behavior Neuro No focal deficit DIAGNOSTIC STUDIES: Point of care glucose Recent Labs Lab 09/20/18 1148 09/20/18 1024 09/20/18 0948 09/20/18 0913 09/20/18 0901 09/20/18 0647 POCGLU 277* 270* 282* 307* 327* 168* Lab results last 24 hours Recent Results (from the past 24 hour(s)) POC Glucose Collection Time: 09/19/18 20:46 Result Value Ref Range Glucose, POC 108 70 - 109 mg/dL POC Glucose Collection Time: 09/19/18 22:01 Result Value Ref Range Glucose, POC 106 70 - 109 mg/dL Basic Metabolic Panel Collection Time: 09/19/18 22:08 Result Value Ref Range Na 137 136 [...] 10.5 mg/dL BUN/Creatinine Ratio 15.0 POC Glucose Collection Time: 09/19/18 23:44 Result Value Ref Range Glucose, POC 106 70 - 109 mg/dL Basic Metabolic Panel Collection Time: 09/20/18 5:52 Result Value Ref Range Na 136 136 [...] mg/dL BUN/Creatinine Ratio 18.9 CBC with Differential Collection Time: 09/20/18 5:52 Result Value Ref Range WBC 12.5 (H) [...] 0.00 0.00 - 0.01 K/uL POC Glucose Collection Time: 09/20/18 6:47 Result Value Ref Range Glucose, POC 168 (H) 70 - 109 mg/dL ECG 12 lead Collection Time: 09/20/18 7:18 Result Value Ref Range INTERPRETATION TEXT Not Confirmed Extra Lavender Top Tube Collection Time: 09/20/18 8:42 Result Value Ref Range Extra Lavender Top Tube Done Basic Metabolic Panel Collection Time: 09/20/18 8:46 Result Value Ref Range Na 135 (L) [...] 8.3 - 10.5 mg/dL BUN/Creatinine Ratio 19.3 POC Glucose Collection Time: 09/20/18 9:01 Result Value Ref Range Glucose, POC 327 (H) 70 - 109 mg/dL POC Glucose Collection Time: 09/20/18 9:13 Result Value Ref Range Glucose, POC 307 (H) 70 - 109 mg/dL POC Glucose Collection Time: 09/20/18 9:48 Result Value Ref Range Glucose, POC 282 (H) 70 - 109 mg/dL POC Glucose Collection Time: 09/20/18 10:24 Result Value Ref Range Glucose, POC 270 (H) 70 - 109 mg/dL Urinalysis with Microscopic with Culture if Indicated Collection Time: 09/20/18 10:26 Result Value Ref Range Color Shante (A) Light Yellow, Yellow, Straw Clarity Cloudy (A) Clear pH, Urine 6.0 5.0 - 8.0 Specific Adel 1.012 1.001 - 1.030 Protein, Urine 100 [...] /HPF URINE COMMENT Urine Culture Not Indicated Sodium, Urine, Random Collection Time: 09/20/18 10:26 Result Value Ref Range Sodium, Urine Random 84 27 - 287 mmol/L Creatinine, Urine, Random Collection Time: 09/20/18 10:26 Result Value Ref Range Creatinine, Urine, Random 59 mg/dL Eosinophil Smear, Urine Collection Time: 09/20/18 10:26 Result Value Ref Range Eosinophil, Urine None seen None seen Basic Metabolic Panel Collection Time: 09/20/18 10:53 Result Value Ref Range Na 135 (L) [...] 8.3 - 10.5 mg/dL BUN/Creatinine Ratio 19.4 POC Glucose Collection Time: 09/20/18 11:48 Result Value Ref Range Glucose, POC 277 (H) 70 - 109 mg/dL Micro results Microbiology Results (72 hrs) No results found for the last 72 hours. Radiology results Xr Abdomen Ap Result Date: 09/19/2018 This exam has been auto-finalized and the interpretation may exist elsewhere in the chart. Fl C-arm Stats No Charge Result Date: 09/19/2018 This exam has been auto-finalized and the interpretation may exist elsewhere in the chart. EKG Results (I reviewed EKG) ASSESSMENT: Active Hospital Problems Diagnosis Right ureteral stone Current smoker Hypertension Marijuana use Hyperkalemia Diabetes Resolved Hospital Problems Diagnosis No resolved problems to display. PLAN: Hyperkalemia in setting of worsening renal function K 6.7. Reconfirmed. EKG showed signs of peaked T waves. Patient was given calcium gluconate , albuterol, insulin 10 units with D50. Kayexelate was given. K level was confirmed. Repeat following treatment improved to 5.7. Started IVF. During the period of treatment, patient wa s explained the situation and concern for worsened renal function without improvement follow ing treatment of obstructive nephrolithiasis. Patient intermittently threatened to leave. Lemuel ortega was upset over not being able to leave to smoke. During one interaction patient threw tray of food missing myself. 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 This was explained multiple times. Patient understoo d the risks and signed an AMA form. Obstructive nephrolithiasis s/p R URS, LL and stent on 09/19/18 As per above DM1 Patient left AMA I reviewed and summarized old records I reviewed imaging Electronically signed by: Allen Barnes MD 09/20/2018 18:39 [facility] Portions of this chart may have been created with [employer] voice recognition software. Occasi onal wrong-word or sound-alike substitutions may have occurred due to the inherent lin itations of voice recognition software. Please read the chart carefully and recognize, using context, where these substitutions have occurred documented in this encounter Miscellaneous Notes Plan of Care - Zachery Martínez RN - 09/20/2018 2:33 PM PSTProblem: Patient Care Overview (Adult) Goal: Care Team Goals & Evaluation PROBLEM-RELATED GOALS: 1. Pt will be free from S/S of infection through 09/23 2. Pt will have acceptable pain level of 3/10 through 09/22 3. Pt will have adequate nutritional intake through 09/22 STRATEGY TO ACHIEVE GOALS: Monitor stent insertion site for S/S of infection Monitor pain level and provide ordered pain medication Encourage pt to drink and eat as tolerated. Provide appetizing foods for pt RESTRAINT-RELATED GOALS: STRATEGIES TO ACHIEVE RESTRAINT GOALS: Outcome: Declining Goal Evaluation: Pt was very upset that he couldn't go out side to smoke a cigarette, educated about the no n-smoking policy but Pt refused to follow. Pt's Mother was present and requested to talk to MD. Pt decided to leave AMA and Doctor Morgan was notified as well as Hospitalist. Pt was medicated with Oxycodone PRN this morning for abdominal pain. Pt has voided red color urine with c/o burning pain, Pyridium was given PRN. lan of Care - Eddy Nixon RN - 09/20/2018 5:17 AM PSTProblem: Patient Care Overview (Adult) Goal: Care Team Goals & Evaluation PROBLEM-RELATED GOALS: 1. Pt will be free from S/S of infection through 09/23 2. Pt will have acceptable pain level of 3/10 through 09/22 3. Pt will have adequate nutritional intake through 09/22 STRATEGY TO ACHIEVE GOALS: Monitor stent insertion site for S/S of infection Monitor pain level and provide ordered pain medication Encourage pt to drink and eat as tolerated. Provide appetizing foods for pt RESTRAINT-RELATED GOALS: STRATEGIES TO ACHIEVE RESTRAINT GOALS: Outcome: Improving Goal Evaluation: Pt alert x4. Heart rate tachy. Regular rhythm. Lungs clear on RA. Dilaudid given for pain as ordered. Pt tolerating ice chips and water well. Has not wanted anything to eat yet. Pota ssium at 5.5- Dr. Mora notified. Standing at bedside to use urinal. Complaints of pain during urination. Urine light red color and clear. 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 Call s appropriately p Note - Don gannon, Tc Nix MD - 09/19/2018 10:00 PM PSTOperative Note Pt. Name/Age/: Brooks Marquez 27 y.o. 1990 Med. Record Number: [id number] Date of admission: 09/19/2018 Date of Operation/Procedure: 09/19/2018 Preoperative Diagnosis: Ureteral stone Postoperative Diagnosis: same Surgeon: Tc Mora MD Manager Behavior(s): none Anesthesia Provider(s): Anesthesiologist: Tereso Dillon MD Anesthesia Type: Choice Procedure: Right URS, LL and stent Operative Indications: Brooks Marquez is a 27 y.o. male who presents with signs and symptoms consistent with ureteral stone. This was confirmed with an imaging study. The patient and /or guardian was counseled and consented to proceed. The risks, benefits, complications, treatment options, and expected outcomes were discussed with the patient and/or family. The patient was counseled and consented to proceed to the o perating room for Right URS LL and stent. Discussed risks, including infection, bleeding, n eed to convert to an open operation, inadvertent injury to intra-abdominal organs, recognize d or unrecognized, need for further surgery, incisional site herniation. Also discussed risk s of failure to treat, failure to diagnose. The patient and/or guardian understands and cons ents to proceed. Operative Findings: proximal stone Operation: After consent was obtained the patient was brought back to the operating room and stefan jitendra in the supine position. A preoperative timeout was performed. Bilateral SCDs were appl ied lower extremities and the patient received 500 mg of Cipro orally in the preoperative ar ea. After successful induction of general anesthesia the patient was placed in the dorsal l ithotomy position and the genitals were prepped and draped in the usual fashion. A 23 Frenc h cystoscope was advanced into the bladder via the urethra. There were no gross anomalies s een. The Right ureteral orifice was visualized and cannulated using a guidewire. This is a dvanced up per the kidney under fluoroscopic guidance. We then used a 10 Syriac dual-lumen catheter to place a second guidewire over which we placed our 09/08 ureteral access sheath. We then used the flexible ureteroscope to explore the proximal ureter and the kidney. The proximal ureter was noted to have a redundant area that was also somewhat strictured. This may navigating past this area extremely difficult. We explored the kidney did identify the stone. Using a laser fiber the stone was fragmented. The larger pieces were removed v ia the basket. Again navigating this problem air in the proximal ureter was quite difficult . We then removed the ureteral access sheath under visual guidance.No significant lacerations were seen. A 6 Syriac variable length stent was then placed over guidewire advanced up toward the kidn ey under fluoroscopic guidance. A good curl was seen in the kidney as well as the bladder. The bladder was then drained and this terminates the procedure. Estimated Blood Loss: <5mL Transfused: No Drains: 6fr multilength stent Total IV Fluids: Specimen (s): Stone fragments Complications: None; patient tolerated the procedure well. Disposition: PACU - hemodynamically stable. Patient Condition: stable Plan: Back to floor for observation. Noted to have high potassium pre op. Will monitor, may need hospitalist consult. Cysto stent removal in 10 days. Electronically Signed by: Tc Mora, 09/19/2018 22:00 [facility] documented in this encounter Plan of Treatment [...] [place] | | | | | | [id number] | | | | | | | [...] [address] | [place] | [phone] | | [facility] | | [address] | | | - LABORATORY | | [...] | mL/min/1.73m2 | [facility] | | | [place] | RATE,ESTIMATED | | MEDICAL | | | | mL/min/1.91h2Bpeb than | | CENTER - | | [...] [address] | [place] | [phone] | | [facility] | | [address] | | | - LABORATORY | | [...] | , Urine | | | [facility] | [...] + | [facility] | [address] | [place] | [phone] | | [facility] | | [address] | | | - LABORATORY | | [...] | | Urine, | | | [facility] | | [...] test. These results should be | [facility] | | integrated into the clinical context for interpretation. | MEDICAL CENTER | | | - LABORATORY | + + + + + + + + | Performing | Address | City/State/Zipcode | Phone Number | | Organization | | | | + + + + + | [facility] | [address] | [place] | [phone] | | [facility] | | [address] | | | - LABORATORY | | [...] [address] | [place] | [phone] | | [facility] | | [address] | | | - LABORATORY | | [...] - 1.030 | [facility] | | | [place], | | | [facility] | | [...] | | Epithelial | | | [facility] | | | Cells, | | | [...] + | [facility] | [address] | [place] | [phone] | | [facility] | | [address] | | | - LABORATORY | | [...] [address] | [place] | [phone] | | [facility] | | [address] | | | - LABORATORY | | [...] ST. | [address] | [employer] [place] | [phone] | | [facility] | | [address] | | | - LABORATORY | | [...] | | POC | | | [facility] | | | | [...] [address] | [place] | [phone] | | [facility] | | [address] | | | - LABORATORY | | | | + + + + + POC Glucose (09/20/2018 9:01 AM PST) + +---------+ + + + | Component | Value | Ref Range | Performed | Pathologist | | | | | At | Signature | + +---------+ + + + | Glucose, | 327 (H) | 70 - 109 mg/dL | [facility] | | | POC | | | [facility] | | | | | | [...] + | [facility] | [address] | [place] | [phone] | | [facility] | | [address] | | | - LABORATORY | | [...] not | 38 (L)Comment: | >=60 | [facility] | | | | GLOMERULAR FILTRATION | mL/min/1.73m2 | [facility] | | | [place] | RATE,ESTIMATED | | MEDICAL | | | | mL/min/1.30h6Aqkm than | | CENTER - | | [...] [address] | [place] | [phone] | | [facility] | | [address] | | | - LABORATORY | | [...] [address] | [place] | [phone] | | [facility] | | [address] | | | - LABORATORY | | [...] MD | | | | | | ([id number]) on 09/21/2018 | | | | | [...] [address] | [place] | [phone] | | [facility] | | [address] | | | - LABORATORY | | [...] ST. | [address] | [place], [place] | [phone] | | [facility] | | [address] | | | - LABORATORY | | [...] | mL/min/1.73m2 | CURLY | | | [place] | RATE,ESTIMATED | | MEDICAL | | | | mL/min/1.50y4Gmbj than | | CENTER - | | [...] | ine Ratio | | | STNanda CURLY | | [...] [address] | [place] | [phone] | | [facility] | | [address] | | | - LABORATORY | | [...] + | [address] | [address] | [place] | [phone] | | [facility] | | [address] | | | - LABORATORY | | [...] +---------+ + + [place] Ailyn-Chirag Roper No Erin (09/19/2018 10:11 PM PST) + [...] not | 42 (L)Comment: | >=60 | [facility] | | | | GLOMERULAR FILTRATION | mL/min/1.73m2 | CURLY | | | [place] | RATE,ESTIMATED | | MEDICAL | | | | mL/min/1.61p0Pjqe than | | CENTER - | | [...] | ine Ratio | | | [facility] | | | | [...] [address] | [place] | [phone] | | [facility] | | [address] | | | - LABORATORY | | [...] + | [address] | [address] | [place] | [phone] | | [facility] | | [address] | | | - LABORATORY | | [...] | Photograph will follow | | LAB MICHELLE | | | | under separate cover. | | - BKR | | + + + + + + | CALCULI | CommentComment: | | REFERENCE | | | COMMENT | Physician questions | | LAB [facility] | | | | regarding Calculi | | - BKR | | | | Analysis contact [facility] | | | | | | at:[phone]. | | | | + + + + + + | Please note | CommentComment: Calculi | | REFERENCE | | | | report with photograph | | LAB [facility] | | | | will follow via | | - BKR | | | | computer, mail orcourier | | | | | | delivery. | | | | + + + + + + | Disclaimer | CommentComment: This | | REFERENCE | | | | test was developed and | | LAB [facility] | | | | its performance | [...] + + | Performed at: 01 - [facility] [address], | REFERENCE LAB | | [place] [phone] Timing Adjuster: Sarabjit Love MD, Phone: | [facility]LE [facility] | | [phone] | | + + + + + + + + | Performing | Address | City/State/Zipcode | Phone Number | | Organization | | | | + + + + + | REFERENCE LAB | [address] | [place], [place] | [phone] | | [facility] | [place] | [address] | | + + + + + POC Glucose (09/19/2018 8:46 PM PST) + +-------+ + + + | Component | Value | Ref Range | Performed | Pathologist | | | | | At | Signature | + +-------+ + + + | Glucose, | 108 | 70 - 109 mg/dL | MALACHIE [...] [address] | [place] | [phone] | | [facility] | | [address] | | | - LABORATORY | | [...] 6 Units | | Arm-Righ | | KWPORFIRIOPEN) injection (pen) 0-12 | | 18 11:57 [...] | | | | | | | 9171-3336 Use NIGHT DOSE for | | | | | | | doses scheduled: HS, 3AM, | | | | | | | Nighttime 0658-3824, | | | | | | + [...]
--- OUTSIDE RECORDS SUMMARY | ~2020-03-21 | XMS | Encounter Summary ---
Demographics + + + | Address | [address] | | | [place] [address] | + + + | Home Phone | | + + + | Preferred Language | Unknown | + + + | Marital Status | Single | + + + | Holiness Affiliation | Unknown | + + + | Race | Unknown | + + + | Ethnic Group | Unknown | + + + Author + + + | Author | [facility] | | | and [place] | + + + | Organization | [facility] | | | and [...] [place] | | | | | [address] | | + + + + + Care Team Providers + +------+ + | Care Certified Procedural Coder Name | Role | Phone | + +------+ + | Erich Yates | PCP | | + +------+ + Encounter Details +--------+ + + + + | Date | Type | Department | Care Team | Description | +--------+ + + + + | 04/18/ | Orders Only | [facility] | Provider, | Chronic kidney | | 2018 | | SYSTEM GENERIC OP | MD [address] | disease, stage III | | | | CONVERSION [address] | [address] | (moderate) ([facility]); | | | | [address] [place], [place] | [place] [address] | Proteinuria; Type 1 | | | | [address] | | diabetes mellitus | | | | [phone] | | with diabetic | | | | | | nephropathy ([facility]); | | | | | | Chronic kidney | | | | | | disease, stage III | | | | | | (moderate) ([facility]) | +--------+ + + + [...] 2020 | Visit | | [address] [place] | | | | | | [address] [place] | | | | | | [address] | | | | | | | [...] | | Indicated | | | (moderate) (HCC) | 01/15/2021 | | | | | Proteinuria Type 1 | | | | | | diabetes mellitus | | | | | | with diabetic | | | | | | nephropathy ([facility]) | | | | | | Chronic kidney | | | | | | disease, stage III | | | | | | (moderate) ([facility]) | | + +------+--------+ + + | Protein/Creatinine | Lab | Routin | Chronic kidney | Expected: | | Ratio, Urine | | e | disease, stage III | 03/07/2019, Expires: | | | | | (moderate) ([facility]) | 01/15/2021 | | | | | Proteinuria Type 1 | | | | | | diabetes mellitus | | | | | | with diabetic | | | | | | nephropathy ([facility]) | | | | | | Chronic kidney | | | | | | disease, stage III | | | | | | (moderate) ([facility]) | | + +------+--------+ + + documented as of this encounter Visit Diagnoses + + | Diagnosis | + + | Chronic kidney disease, stage III (moderate) (HCC) Chronic kidney disease, Stage III | | (moderate) | + + | Proteinuria | + + | Type 1 diabetes mellitus with diabetic nephropathy ([facility]) Type I (juvenile type) | | diabetes mellitus with renal manifestations, not stated as uncontrolled | + + documented in this encounter"
--- OUTSIDE RECORDS SUMMARY | ~2020-03-21 | XMS | Encounter Summary ---
Demographics + + + | Address | [address] | | | [place] [address] | + + + | Home Phone [...] [place] | | | | | [address] | | + + + + + Care Team Providers + +------+ + | Care Slackman Name | Role | Phone | + +------+ + | Erich Yates | PCP | | + +------+ + Encounter Details +--------+ + + + + | Date | Type | Department | Care Team | Description | +--------+ + + + + | 02/28/ | Documentati | [facility] [place] | [facility], | | | 2019 | on | GASTROENTEROLOGY | [address]NA [address] | | | | | [address] [place] | [address] | | | | | [address] [place], [place] | [place], [place] | | | | | [address] | [address] | | | | | [phone] | | | +--------+ + + + [...] 02/28/2019 8:47 AM PDTReceived [facility]. It states they have made several attempts to contact the patient an d he has not returned any of their calls. They will be discontinuing their efforts to contac t patient. document ed in this encounter Plan of Treatment +--------+---------+ + + + | Date | Type | Specialty | Care Team | Description | +--------+---------+ + + + | 05/07/ | Office | Nephrology | Winston Whitman MD | | | 2020 | Visit | | [address] [facility] | | | | | | [address] [place] | | | | | | [address] | | | | | | | | +--------+---------+ + + + documented as of this encounter Visit Diagnoses Not on filedocumented in this encounter"
--- OUTSIDE RECORDS SUMMARY | ~2020-03-21 | XMS | Encounter Summary ---
Demographics + + + | Address | [address] | | | [place] [address] | + + + | Home Phone | | + + + | Preferred Language | Unknown | + + + | Marital Status | Single | + + + | Yazdanism Affiliation | NON | + + + [...] Samantha Ramos | ECON | [address] # | | | | | [place] | | | | | [address] | | + + + + + Care Team Providers + +------+ + | Care Medical Service Technician Name | Role | Phone | [...] Mailcode: | | | | | | [place], [place] | [address] | | | | | manifestatio | [address] | for Health | | | | | n ([facility]) | Phone: | and Healing, | | | | | Procedures | [phone] | [address], | | | | | CONSULT TO | Fax: | 11th Floor | | | | | OPHTHALMOLOG | [phone] | [place], [place] | | | | | Y | | [address] | | | | | | | Phone: | | | | | | | [phone] | | | | | | | Fax: | | | | | | | [phone] | +--------+--------+ + + + + Reason [...] | | | with type 1 | [address] | [address] | | | | | diabetes | Phone: | [place], [place] | | | | | mellitus | [phone] | [address] | | | | | (HCC) Type | Fax: | Phone: | | | | | 1 diabetes | [phone] | [phone] | | | | | mellitus | | Fax: | | | | | with | | [phone] | | | | | hyperglycemi | [...] | | | [address] | [place], [place] | ([facility]) (Primary Dx); | | | | [address] | [address] | Hyperglycemia due to | | | | [facility] | [phone] | type 1 diabetes | | | | [address] [place], | | mellitus (HCC); Leg | | | | [place] [address] | | wound, right, | | | | [phone] | | initial encounter | +--------+---------+ + [...] might be different f rom the original. [facility] New Patient Consultation Referring physician: Jaison Pascual DO Primary care provider: Jaison Pascual DO Reason for Consultation: Type 1 diabetes History of Present Illness: This is a new patient to my clinic. Brooks Marquez II is a 24 y.o. male referred for evaluation of type 1 diabetes. Diagnosed in 2001. Seen in childhood in [facility] pediatric endocr inology. Long-standing suboptimal control. Diabetes complicated by gastroparesis and has bee n seen in the ER frequently. Multiple past episodes of DKA, most recently earlier this month at [facility]. Frequent nausea. Doing well since discharge and no current issues with vomiting. N o numbness/tingling. Did not have insurance for a period of time and was paying out of [employer] for his insulin approx 1 year ago [...] tobacco use: 1/2 ppd. 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 Allergies: Allergies Allergen Reactions Codeine Nausea and [...] random - Final result (09/02/2015 8:48 AM [facility]) Component Value Range Microalb, Ur 1337.2 [...] Hyperglycemia due to type 1 diabetes mellitus ([facility]) S81.801A Leg wound, right, initial encounter [...] hair in lower extremities. 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 Discussed conservative measures for wound and signs/symptoms [...] | | | LABORATORY | | | NIGERIAN | | | SERVICES, | | | [...] | + + + + + | [facility] | [address] | [place] [address] | | | SERVICES, CORE | ZENA [...]
--- OUTSIDE RECORDS SUMMARY | ~2020-03-21 | XMS | Encounter Summary ---
Demographics + + + | Address | [address] | | | [place] [address] | + + + | Home Phone [...] + + | Author | [facility] | + + + | Organization | [facility] | + + + | Address | Unknown | + + + | Phone | Unavailable | + + + Support + + + + + | Name | Relationship | Address | Phone | + + + + + | Samantha Ramos | ECON | [address] | | | | | [place] | | | | | [address] | | + + + + + Care Team Providers + +------+ + | Care Manager Bilingual Name | Role | Phone | + +------+ + | Neri Mojica MD | PCP | | + +------+ + Encounter Details +--------+ + + + + | Date | Type | Department | Care Team | Description | +--------+ + + + + | 07/19/ | Results | Registration [id number] | Other, Faculty | | | 2005 | Only | [address] | [phone] | | | | | Rd Mailcode: [id number] | | | | | | [place], [place] | | | | | | [address] | | | | | | [phone] | | | +--------+ + + + [...]
--- OUTSIDE RECORDS SUMMARY | ~2020-03-21 | XMS | Encounter Summary ---
Demographics + + + | Address | [address] | | | [place] [address] | + + + | Home Phone | | + + + | Preferred Language | Unknown | + + + | Marital Status | Single | + + + | Sikhism Affiliation | NON | + + + | Race | White | + + + | Ethnic Group | Not or | + + + Author + + + | Author | [facility] | + + + | Organization | [facility] | + + + | Address | Unknown | + + + | Phone | Unavailable | + + + Support + + + + + | Name | Relationship | Address | Phone | + + + + + | Samantha Ramos | ECON | [address] # | | | | | [place] | | | | | [address] | | + + + + + Care Team Providers + +------+ + | Care Drink Waiter Name | Role | Phone | + [...] | | 2019 | | Center at [facility] [address] | [address] | | | | | [address] | [place], | | | | | Mailcode: [place] | [place] [address] | | | | | for Health and | [phone] | | | | | [facility], [facility] [address] | | | | | | [place], [place] | | | | | | [address] | | | | | | [phone] | | | +--------+ + + + [...]
--- OUTSIDE RECORDS SUMMARY | ~2020-03-21 | XMS | Encounter Summary ---
Demographics + + + | Address | [address] | | | [place] [address] | + + + | Home Phone | | + + + | Preferred Language | Unknown | + + + | Marital Status | Single | + + + | Orthodox Affiliation | NON | + + + | Race | White | + + + | Ethnic Group | Not or | + + + Author + + + | Author | [facility] | + + + | Organization | [facility] | + + + | Address | Unknown | + + + | Phone | Unavailable | + + + Support + + + + + | Name | Relationship | Address | Phone | + + + + + | Samantha Ramos | ECON | [address] # | | | | | [place] | | | | | [address] | | + + + + + Care Team Providers + +------+ + | Care Rail Equipment Operator Name | Role | Phone | [...] | | Endocrinology at | MD [address] [facility] | | | | | Tika | [address] | | | | | [facility] | [place], [place] | | | | | [address] [place] [address] | [address] | | | | | Tika | [phone] | | | | | [place], [place] | | | | | | [address] | | | | | | [phone] | | | +--------+--------+ + + + [...]
--- OUTSIDE RECORDS SUMMARY | ~2020-03-21 | XMS | Encounter Summary ---
Demographics + + + | Address | [address] | | | [place] [address] | + + + | Home Phone | | + + + | Preferred Language | Unknown | + + + | Marital Status | Single | + + + | Caodaism Affiliation | Unknown | + + + | Race | Unknown | + + + | Ethnic Group | Unknown | + + + Author + + + | Author | [facility] | | | and [place] | + + + | Organization | [facility] | | [...] [id number] | | | | | [address] | | + + + + + Care Team Providers + +------+ + | Care Valet Name | Role | Phone | + [...] | | | | | | | Uncontrolled | | | | | | | Diabetes | | | +--------+--------+ + + + + Encounter Details +--------+ + + + + | Date | Type | Department | Care Team | Description | +--------+ + + + + | 06/09/ | Hospital | [facility] | Diony Hollis, | | | 2019 - | Encounter | [facility] | [address] | | | | | CARE [address]LO[address] | [place] [address] | | | 06/10/ | | [address] | [phone] | | | 2019 | | [place], [place] | | | | | | [address] | Solomon Jonas MD [address] | | | | | [phone] | [address] | | | | | | [place] [address] | | | | | | [phone] | | | | | | | | | | | | Jannette Spears MD | | | | | | [address] | | | | | | [place] [address] | | | | | | [phone] | | | | | | | | | | | | Andrey Gatica DO | | | | | | [address] | | | | | | [place] [address] | | | | | | [phone] | | | | | | | [...] documented as of this encounter Discharge Summaries Solomon Jonas MD - 06/10/2019 6:14 PM PDTFormatting of this note might be different from th e original. [facility] MEDICAL HOSPITALIST TEAM Patient leave AGAINST MEDICAL ADVICE documentation Pt. Name/Age/: Brooks Marquez 28 y.o. 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 [place] and EGD with history of gastric ulcers He also have gastropathy which was documented in [facility] by gastric emptying study in 2003 by documentation Hemoglobin of 10.7 and WBC 9 potassium 5.3 creatinine 2.14 bicarb 23 troponin slightly elev ated 0.15 4 repeat was 0.12 ABG pH 7.29 4834 anion gap 13 LFT unremarkable glucose 422 UA is negative for infection his heart rate and 100s sinus by record he was given normal saline f luid bolus and improved and heart rate also treated with regular insulin IV morphine and tra nsferred to [facility] due to elevated troponin EKG shows sinus tachycardia no acute ischemic brown e repeat troponin at [facility] was unremarkable by record Patient was admitted to have V/Q to rule out PE with sinus tach echocardiogram for wall mot ion and monitor at the alimentary and treated as musculoskeletal pain with Voltaren gel and Lidoderm patch and H2 giovana his chronic abdominal pain diabetic gastroparesis also noted t o be can compound by marijuana use by history his home dose of Reglan and hydrocodone with c ontinue as he already have a scheduled gastroenterology appointment in June at [facility] for p ossible gastric pacemaker acute on chronic renal disease stage III were addressed and treate d with IV fluid as nausea vomiting compound prerenal dehydration as well for his hyperkalemi a HANS inhibitor was hold and monitor potassium His nuclear medicine lung perfusion ventilation scan was low probability for pulmonary embo lism This morning his mother arrived at bedside both patient and mother requesting to leave [facility] before I have a chance to see evaluation and round the patient I was noti fied that patient signed the paperwork and leave AGAINST MEDICAL ADVICE Significant tests and procedures during admission: Nm Lung Perfusion Ventilation Result Date: 06/10/2019 PULMONARY PERFUSION IMAGING, PARTICULATE, WITH VENTILATION; REBREATHING AND WASHOUT, WITH O R WITHOUT SINGLE BREATH CLINICAL INFORMATION: Rule out pulmonary embolism. COMPARISON: 2018 chest x-ray PROCEDURE: Following the inhalation of 14 mCi xenon 133, ventilation images were obtained in the standard projections according to department protocol. Washout imaging was performed. Following the intravenous administration of 6.1 mCi of Tc-99m MAA, perfusion images were obtained in standard projections according to department protocol. FINDINGS: Ho mogeneous radiotracer uptake seen throughout the lungs on ventilation images. Mild retentio n of radiotracer throughout the lungs on more delayed images. Minimal heterogeneity radiotra cer uptake throughout the lungs on perfusion images. No segmental or subsegmental perfusion defect to represent pulmonary embolism. IMPRESSION: Very low probability for pulmonary embo lism. Signed by: Bandar Lema Chet Sign Date/Time: 06/10/2019 10:12 AM Xr Chest 2 Vws Result Date: 06/10/2019 CHEST TWO VIEWS CLINICAL INFORMATION: Chest pain. COMPARISON: None FINDINGS: Heart, lungs a nd vessels normal. No pneumothorax, pleural effusion or adenopathy. No significant bone abno rmality. IMPRESSION: Negative chest. Signed by: Bandar Lema Chet Sign Date/Time: 9 8:48 AM Additional discharge history/co-morbidities: Active Ambulatory Problems Diagnosis Date Noted Right ureteral stone 09/19/2018 Hyperkalemia 09/19/2018 Type 1 diabetes mellitus with nephropathy 09/19/2018 Hypertension 09/19/2018 Marijuana use 09/19/2018 Current smoker 09/19/2018 Epigastric pain 08/26/2015 Diabetic gastroparesis 08/27/2015 Diabetic ketoacidosis without coma associated with type 1 diabetes mellitus 08/25/2015 Fissure in skin of foot 08/26/2015 Hyperglycemia due to type 1 diabetes mellitus 09/17/2015 Anemia of chronic renal failure, stage 3 (moderate) 01/15/2019 CKD (chronic kidney disease), stage III 01/15/2019 Electrolyte imbalance risk 01/15/2019 Metabolic acidosis 01/15/2019 Nephrotic range proteinuria 01/15/2019 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 with type 1 diabetes mellitus 01/15/2019 Resolved Ambulatory Problems Diagnosis Date Noted No Resolved Ambulatory Problems Past Medical History: Diagnosis Date Abdominal pain Arthritis Bowel dysfunction Chronic kidney disease Diabetes Dizziness Healed ulcer of left foot on examination Heart palpitations Hypertension Kidney stone Onychomycosis Retinopathy Stress headaches Electronically signed by: Solomon Jonas MD 06/10/2019 18:15 documented in this encoun ter Medications at Time of Discharge + + + +---------+ + + | Medication | Sig | Dispensed | Refills | Start | End Date | | | | | | Date | | + + + +---------+ + + | GLUCAGON EMERGENCY | Inject 1 mg into the | | 0 | 07/20/20 | | | 1 MG injection | [...] +---------+ + + | raNITIdine | Take 150 mg by mouth | | 0 | | | | (ZANTAC) 150 mg | Daily. | | | | 0 | | tablet | | | | | | + + + +---------+ + + documented as of this encounter Progress Notes Alicia Ward RN - 06/10/2019 10:38 AM PDTMother arrived at bedside. Both patient and mot her requesting to leave AMA. Risks were explained. Dr. Jonas was notified. AMA paperwork sign ed. IV removed. Felipa Nicholson RN - 06/10/2019 4:55 AM PDTPt transferred [facility]. Admitted by Dr. Ramakrishna Spears. Ewa grier called at approximated 2155 as patient was getting very agitated and throwing ite ms from room around when told he would not be getting any IV pain medication and that he wou ld only be given his home does of narcotics. Pt calmed down quickly but continued to be agit ated and verbally agressive, refusing any form of pain reducing measures other than the oral pain medications. Has verbalized that he intends to go home repeatedly if his pain is not "taken care of nolvia quately". All VSS. BP's never over 170's. All other needs met at this time. Hourly rounding will cont inue. Felipa Hill RN documented i n this encounter H&P Notes Jannette Spears MD - 06/09/2019 9:43 PM PDT [facility] Service: Hospitalist Admission History & Physical Date of Admission: 06/09/2019 Requesting Physician: Emergency Department Reason for Admission: Chest pain with elevated troponin History Obtained From: Patient CHIEF COMPLAINT: Chest pain HISTORY OF PRESENT ILLNESS This is a 28-year-old male with past medical history of type 1 diabetes mellitus, hypertens ion, chronic kidney disease stage III with a baseline creatinine of 1.5 1.9 follows up brandon Whitman, history of diabetic gastroparesis, chronic pain syndrome on narcotics, right BK A from necrotizing fasciitis in 11/14 who who was transferred here from [facility] for chest pain and elevated troponin. Patient has has had chronic intractable nausea an d vomiting along with upper abdominal pain that radiates into his chest and lower abdomen si nce the last 5 years. He describes his pain as chainsaw or knife blades running across his chest and abdomen. He also has associated diarrhea with 5-10 bowel movements daily. Shon henderson has been hospitalized several times for this. He saw jukebox coin collector in [place] 3 years ago and had an EGD which showed small gastric ulcers. He has also had a gastric emptying s tudy done at [facility] in 2013 that showed delayed emptying. He is scheduled to follow-up with selma astroenterology at [facility] in June 2019 for consideration of gastric pacemaker. He has been on and off of Reglan and restarted this 1-1/2-month ago with no significant relief. Prior to that he was on erythromycin. His abdominal pain is worse after eating she eats. He has lost 90 pounds in the last 9 years due to decreased oral intake. Today however he noticed left lower chest wall upper abdominal pain that was different from his usual pain. Pain was pleuritic and reproducible in nature.Also has muscle cramps. opal n is 10/10 in severity but did not radiate. He has also been having associated shortness of breath in the last several days. He denies any trauma or injury to his chest. He reports t hat he woke up at 6:30 in the morning with pain. Pain was slightly exertional in nature but not necessarily relieved with rest. He denies any fevers or chills. He does feel as if hi s heart is racing for his diabetes, his last hemoglobin A1c was 8.0. He is a brittle diabet ic and his blood sugars usually range from 65 1 80. However this morning his blood sugar was in the 400s. He reports that behind the right knee his socks seem to rub against it and he has a wound since the last 1 week with eschar which she has been applying gel to. Damion jeffrey has been smoking since he was 14 however has decreased it to 3 cigarettes a day. He also smokes marijuana once a week. He denies any illicit drug use. In the emergency department at [facility] his pulse was 132. He was afebrile . Blood pressure was 145/115. He was satting 98% on room air. Labs showed a hemoglobin of 10.7, white count 9.1, potassium 5.3, creatinine 2.14, bicarb 23. Troponin was slightly el evated at 0.154, repeat 0.120. VBG showed pH of 7.29/ 48/ 34. lipase of 7. Anion gap was 1 3. LFTs were unremarkable. Glucose was 422 improvement to 182. UA was negative for UTI. He was given 2 L normal saline bolus with improvement of his heart rate to 90. He was also given regular units 5, Reglan, PPI, morphine and transferred due to elevated troponin. EKG showed sinus tachycardia with no ischemic changes. Repeat troponin at [facility] is unremarkable . REVIEW OF SYSTEMS Review of Systems - General ROS: negative ENT: No ear discharge No nasal drainage. No sore throat Endocrine:No cold or heat tolerance. +weight loss Respiratory: no cough, +shortness of breath, or wheezing Cardiovascular: +chest pain or dyspnea on exertion Gastrointestinal: + abdominal pain, +nausea/vomitting, +diarrhea Genitourinary: no dysuria, polyuria, hematuria Musculoskeletal: +muscle cramps Neurological: no TIA or stroke symptoms Dermatological:No rash Psych: cooperative Past Medical History: Diagnosis Date Abdominal pain Arthritis Bowel dysfunction Chronic kidney disease Diabetes (HCC) Dizziness Healed ulcer of left foot on examination Heart palpitations Hypertension Kidney stone Onychomycosis Retinopathy Stress headaches Past Surgical History: Procedure Laterality Date ELBOW SURGERY Right LEG AMPUTATION BELOW KNEE URETEROSCOPY Right 09/19/2018 Procedure: CYSTOSCOPY W/ URETEROSCOPY W/ LASER LITHOTRIPSY WITH STENT PLACEMENT; Surgeon: Tc Mora MD; Location: [facility] MAIN OR Allergies Allergen Reactions Codeine Nausea And Vomiting Reaction: Projectile vomit Medications Prior to Admission Medication Sig Dispense Refill dicyclomine (BENTYL) 20 MG tablet Furosemide (LASIX PO) Take 40 mg by mouth 2 times daily. GLUCAGON EMERGENCY 1 MG injection HYDROcodone-acetaminophen (NORCO) 10-325 mg per tablet TAKE TABLET BY MOUTH 4 TIMES BIJU LY 0 HYDROcodone-acetaminophen (NORCO) 7.5-325 mg per tablet Take 1 tablet by mouth every 6 hours as needed for Pain. insulin glargine (LANTUS SOLOSTAR) 100 units/mL injection (pen) Inject 40 Units under t he skin nightly. insulin lispro (HUMALOG KWIKPEN) 100 units/mL injection (pen) Inject under the skin 3 times daily (before meals). lisinopril (PRINIVIL, ZESTRIL) 10 mg tablet Take 1 tablet by mouth 2 times daily. metoprolol tartrate (LOPRESSOR) 50 mg tablet Take 50 mg by mouth 2 times daily. ondansetron (ZOFRAN ODT) 8 mg disintegrating tablet Take 8 mg by mouth every 8 hours as needed for Nausea. raNITIdine (ZANTAC) 150 mg tablet Take 150 mg by mouth 2 times daily. Family History Problem Relation Age of Onset [...] file Social History Narrative Not on file PHYSICAL EXAM Vitals: 06/09/192019 BP: (!) 176/119 Pulse: 121 Resp: 14 Temp: 36.7 C (98 F) Gen: AOX3. NAD HEENT: NCAT CV: tachycardic. S1S2 normal. no murmer, rubs, or gallops. No JVD Chest: CTA b/l, reproducible left lower chest wall tenderness Abd: S, diffuse tenderness worse in RUQ and epigastric region. BS+, no gaurding or ridigity Ext: No edema, +right BKA with posterior calf with scab wound, does not appear infected. 2+ DP Neuro: Motor/sensations intact. 2+ DTRs DATA Recent Results (from the past 24 hour(s)) Troponin I Result Value Ref Range Troponin T 0.006 0.00 - 0.04 ng/mL IMAGING: No results found. PROBLEM LIST Principal Problem: Chest pain Active Problems: Current smoker Hyperkalemia Diabetic gastroparesis Hyperglycemia due to type 1 diabetes mellitus Acute renal failure superimposed on stage 3 chronic kidney disease Hypertension Marijuana use ASSESSMENT & PLAN Chest pain: With elevated troponin at [facility] and has been unremarkable at [facility]. I feel his elevated troponin is most likely demand from tachycardia. His chest pain is aty pical. Pain is pleuritic and reproducible and likely musculoskeletal in nature or GI. Jensen ana he does have risk factors for ACS including tobacco use, type 1 diabetes, hypertension h ence will trend cardiac enzymes. I do not see an indication for inpatient stress testing un less his cardiac enzymes trend up or he continues to have pain. He is tachycardic and with his pleuritic chest pain will get VQ scan to rule out PE and get echocardiogram to rule out any wall motion abnormalities and check ejection fraction. Will monitor on telemetry. Will order Voltaren gel and Lidoderm patch. Continue home dose of famotidine. Tachycardia: Most likely secondary to pain and significant dehydration from chronic nausea vomiting and diarrhea. EKG shows sinus tachycardia. Will check TSH and get VQ scan to rule out PE. Will monitor on telemetry. Ordered echocardiogram. Chronic abdominal pain with diabetic gastroparesis: Most likely contributing to his nausea vomiting and diarrhea. Marijuana use could also be contributing. We will continue home dos e of Reglan and hydrocodone. I do not see any indication for IV narcotics. He is scheduled to see gastroenterology in June at [facility] for gastric pacemaker. Severe protein calorie malnutrition: Patient has lost 90 pounds in the last 5 years and has decrease in appetite and oral intake. Will consult dietary. Acute on chronic kidney disease stage III: Patient follows with Dr. Whitman and has a baselin e creatinine per previous charting of 1.5 1.9. Creatinine at [facility] was 2.14. T his is most likely prerenal in the setting of dehydration from nausea vomiting. Will order IV fluids and hold Lasix. Monitor creatinine, avoid nephrotoxins. Hyperkalemia: Most likely secondary to HANS inhibitor and acute on chronic kidney disease. Will hold lisinopril and monitor potassium. Hypertension: Blood pressure uncontrolled likely secondary to pain. We will continue home dose of metoprolol, holding lisinopril, will start labetalol PRN for blood pressure greater than 180. Type 1 diabetes mellitus with hyperglycemia: Patient is a brittle diabetic. Currently bloo d sugar is controlled. Will continue home dose of Lantus. Patient also takes Humalog per s liding scale with 1 unit for every 7 g of carbs and correctional scale of 1 unit for 50 abov e 200. Tobacco use/marijuana use: He has cut down his tobacco use. Right calf wound: Does not appear to be infected. Monitor. Disposition: inpatient Code Status: Prior DVT PPx: heparin SQ Diet: Primary Care Physician: VIKI Anand MD 06/09/2019 documented in this enc ounter Plan of Treatment +--------+---------+ + + + | Date | Type | Specialty | Care Team | Description | +--------+---------+ + + + | 05/07/ | Office | Nephrology | Winston Whitman MD | | | 2019 | Visit | | [address] [facility] | | | | | | [address] [place], [place] | | | | | | [address] | | | | | | | [...] + documented in this encounter Results NM Lung Perfusion Ventilation (06/10/2019 9:53 [...] chest. Signed by: | | | Bandar Lema Chet Sign Date/Time: 06/10/2019 8:48 AM | | [...] + + POC Glucose (06/10/2019 8:12 AM PDT) + + + + + + | Component | Value | Ref Range | Performed | Pathologist | | | | | At | Signature | + + + + + + | Glucose, | 265 (H)Comment: Testing | 65 - 99 mg/dL | [facility] | | | POC | performed at [facility];[address] | | LABORATORY | | | | [address];[place], [place] | | | | | | [address] | | | | + + + + + + + + | Specimen | + + | | + + + + + + + | Performing | Address | City/State/Zipcode | Phone Number | | Organization | | | | + + + + + | [facility] | [address] | [place] [address] | [phone] | + + + + + Troponin I (06/10/2019 5:58 AM PDT) + + + + + + | Component | Value | Ref Range | Performed | Pathologist | | | | | At | Signature | + + + + + + | Troponin I | <0.006Comment: 0.04 | 0.00 - 0.04 | [facility] | | | | ng/mL or less [...] at | | | | | | [facility];[address] [place] [address] | | | | | | vd;[place] [address] | | | | + + + + + + + + | Specimen | + + | | + + + + + + + | Performing | Address | City/State/Zipcode | Phone Number | | Organization | | | | + + + + + | [facility] | [address] | [place] [address] | [phone] | + + + + + Hemoglobin A1C (06/10/2019 5:58 AM PDT) + + + + + + | Component | Value | Ref Range | Performed | Pathologist | | | | | At | Signature | + + + + + + | Hemoglobin | 8.8 (H)Comment: HbA1c | 4.0 - 6.0 % | [facility] | | | A1c | method is [...] | 206 (H)Comment: | <154 mg/dL | [facility] | | | Average | Estimated Average | | LABORATORY | | | Glucose | Glucose calculated from | | | | | | hemoglobin A1c by use of | | | | | | the ADArecommended | | | | | | formula.Testing | | | | | | performed at [facility], [address] | | | | | | [address], | | | | | | [place] [address] | | | | + + + + + + + + | Specimen | + + | Blood | + + + + + + + | Performing | Address | City/State/Zipcode | Phone Number | | Organization | | | | + + + + + | [facility] | [address] | [place] [address] | [phone] | + + + + + TSH (06/10/2019 5:58 AM PDT) + + + + + + | Component | Value | Ref Range | Performed | Pathologist | | | | | At | Signature | + + + + + + | TSH | 0.811Comment: Testing | 0.450 - 5.100 | [facility] | | | | performed at [facility];[address] | uIU/mL | LABORATORY | | | | [address];[place], [place] | | | | | | [address] | | | | + + + + + + + + | Specimen | + + | Blood | + + + + + + + | Performing | Address | City/State/Zipcode | Phone Number | | Organization | | | | + + + + + | [facility] | [address] | [place] [address] | [phone] | + + + + + Basic [...] | | | | | performed at [facility];[address] | | | | | | [address];[place] | | | | | | [address] | | | | + + + + + + + + | Specimen | + + | Blood | + + + + + + + | Performing | Address | City/State/Zipcode | Phone Number | | Organization | | | | + + + + + | [facility] | [address] | [place] [address] | [phone] | + + + + + CBC [...] [facility] | | | | performed at [facility];[address] | | LABORATORY | | | | [address];[place], [place] | | | | | | [address] | | | | + + + + + + + + | Specimen | + + | Blood | + + + + + + + | Performing | Address | City/State/Zipcode | Phone Number | | Organization | | | | + + + + + | [facility] | [address] | [place] [address] | [phone] | + + + + + ECG [...] + +---------+ + + POC Glucose (06/10/2019 3:10 AM PDT) + + + + + + | Component | Value | Ref Range | Performed | Pathologist | | | | | At | Signature | + + + + + + | Glucose, | 288 (H)Comment: Testing | 65 - 99 mg/dL | [facility] | | | POC | performed at [facility];[address] | | LABORATORY | | | | [address];[place], [place] | | | | | | [address] | | | | + + + + + + + + | Specimen | + + | | + + + + + + + | Performing | Address | City/State/Zipcode | Phone Number | | Organization | | | | + + + + + | [facility] | [address] | [place] [address] | [phone] | + + + + + Troponin I (06/09/2019 11:38 PM PDT) + + + + + + | Component | Value | Ref Range | Performed | Pathologist | | | | | At | Signature | + + + + + + | Troponin I | <0.006Comment: 0.04 | 0.00 - 0.04 | [facility] | | | | ng/mL or less [...] at | | | | | | [facility];[address] [facility] | | | | | | [facility];[place] [address] | | | | + + + + + + + + | Specimen | + + | Blood | + + + + + + + | Performing | Address | City/State/Zipcode | Phone Number | | Organization | | | | + + + + + | [facility] | [address] | [place] [address] | [phone] | + + + + + Lipid Panel (06/09/2019 11:38 PM [...] | 31 (L) | >40 mg/dL | [facility] | | | | | | LABORATORY | | + + + + + + | LDL, | 82Comment: Testing | <100 mg/dL | [facility] | | | Calculated | performed at [facility], [address] | | LABORATORY | | | | [address], | | | | | | [place] [address] | | | | + + + + + + + + | Specimen | + + | Blood | + + + + + + + | Performing | Address | City/State/Zipcode | Phone Number | | Organization | | | | + + + + + | [facility] | [address] | [place] [address] | [phone] | + + + + + Troponin I (06/09/2019 9:05 PM PDT) + + + + + + | Component | Value | Ref Range | Performed | Pathologist | | | | | At | Signature | + + + + + + | Troponin I | 0.006Comment: 0.04 | 0.00 - 0.04 | [facility] | | | | ng/mL or less [...] at | | | | | | [facility];[address] | | | | | | [address];[place] [address] | | | | + + + + + + + + | Specimen | + + | Blood | + + + + + + + | Performing | Address | City/State/Zipcode | Phone Number | | Organization | | | | + + + + + | [facility] | [address] | [place] [address] | [phone] | + + + + + POC Glucose (06/09/2019 8:30 PM PDT) + + + + + + | Component | Value | Ref Range | Performed | Pathologist | | | | | At | Signature | + + + + + + | Glucose, | 152 (H)Comment: Testing | 65 - 99 mg/dL | [facility] | | | POC | performed at [facility];[address] | | [address] | | | | [address];[place], [place] | | | | | | [address] | | | | + + + + + + + + | Specimen | + + | | + + + + + + + | Performing | Address | City/State/Zipcode | Phone Number | | Organization | | | | + + + + + | [facility] | [address] | [place] [address] | [phone] | + + + + + documented in this encounter Visit Diagnoses + + | Diagnosis | + + | Chest pain - Primary Chest pain, unspecified | + + | Current smoker Tobacco use disorder | + + | Hyperkalemia Hyperpotassemia | + + | Diabetic gastroparesis (HCC) 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, not stated as uncontrolled | + + | Hyperglycemia due to type 1 diabetes mellitus (HCC) | + + | Hypertension Unspecified essential hypertension | + + | Marijuana use Cannabis abuse, unspecified | + + | Acute renal failure superimposed on stage 3 chronic kidney disease (HCC) | + + documented in this encounter Administered Medications + +--------+ +--------+------+------+ | Medication Order | MAR | Action | Dose | Rate | Site | | | Action | Date | | | | + +--------+ +--------+------+------+ | aluminum & magnesium | Given | 06/09/20 | 30 mLs | | | | hydroxide-simethicone (MAALOX | | 19 9:29 | | | | | PLUS REGULAR STRENGTH) 200-200-20 | | PM PDT | | | | | mg/5 mL 22.5 mL, lidocaine | | | | | | | (XYLOCAINE) 2% 7.5 mL liquid 30 | | | | | | | mL, Oral, ONCE, 06/09/19 at | | | | | | | 2130, For 1 dose, Mix Maalox Plus | | | | | | | 30 ml, Lidocaine viscous 2% 10 | | | | | | | ml to formulate mixture., | | | | | | + +--------+ +--------+------+------+ +---+---+ | | | +---+---+ + +-------+ +-------+---+---+ | aspirin chewable tablet 81 mg | Given | 06/10/20 | 81 mg | | | | 81 mg, Oral, DAILY, First dose on | | 19 8:08 | | | | | 06/10/19 at 0900, Notify | | AM PDT | | | | | provider if unable to tolerate, | | | | | | + +-------+ +-------+---+---+ + +---+ | | | + +---+ | dextrose 10% (D10W) infusion | | | at 50 mL/hr, Intravenous, | | | CONTINUOUS PRN, hypoglycemia, | | | Starting 06/09/19 at 2329, | | | Start infusion if unable [...] | + +---+ | dextrose 50% injection 12.5-25 | | | g 12.5-25 g, Intravenous, PRN, | | | Low Blood Sugar, Starting Sat | | | 06/09/19 at 2329, For blood | | | glucose 50-69 mg/dl - give 12.5 g | | | For blood glucose less than 50 | | | mg/dl - give 25 g, | | + +---+ | | | + +---+ + +-------+ +-----+---+---+ | diclofenac (VOLTAREN) 1% gel 4 | Given | 06/10/20 | 4 g | | | | g 4 g, Topical, 4 TIMES DAILY, | | 19 8:10 | | | | | First dose on 06/09/19 at | | AM PDT | | | | | 2345, Do not cover area with | | | | | | | occlusive dressings or wash area | | | | | | | for 1 hour after application. Use | | | | | | | the dosing card to correctly | | | | | | | measure each dose. (2 g = 2.25 | | | | | | | inches, 4 g = 4.5 inches) After | | | | | | | using the dosing card, hold end | | | | | | | with fingertips, rinse and dry. | | | | | | | Store dosing card until next | | | | | | | use., | | | | | | + +-------+ +-----+---+---+ +---+---+ | | | +---+---+ + +-------+ +-------+---+---+ | famotidine (PEPCID) tablet 20 | Given | 06/10/20 | 20 mg | | | | mg 20 mg, Oral, 2 TIMES DAILY, | | 19 8:08 | | | | | First dose on 06/09/19 at 2245 | | AM PDT | | | | + +-------+ +-------+---+---+ +-------+ +-------+---+---+ | Given | 06/09/20 | 20 mg | | | | | 19 11:53 | | | | | | PM PDT | | | | +-------+ +-------+---+---+ +---+---+ | | | +---+---+ + +-------+ + +---+---+ | HYDROcodone-acetaminophen | Given | 06/09/20 | 1 tablet | | | | (NORCO) 10-325 mg per tablet 1 | | 19 11:48 | | | | | tablet 1 tablet, Oral, EVERY 8 | | PM PDT | | | | | HOURS PRN, Pain, Starting Sat | | | | | | | 06/09/19 at 2218 | | | | | | + +-------+ + +---+---+ +---+---+ | | | +---+---+ + +-------+ + +---+---+ | HYDROcodone-acetaminophen | Given | 06/10/20 | 1 tablet | | | | (NORCO) 10-325 mg per tablet 1 | | 19 9:34 | | | | | tablet 1 tablet, Oral, EVERY 4 | | AM PDT | | | | | HOURS PRN, Pain, Starting Sun | | | | | | | 06/10/19 at 0500 | | | | | | + +-------+ + +---+---+ +-------+ + +---+---+ | Given | 06/10/20 | 1 tablet | | | | | 19 5:17 | | | | | | AM PDT | | | | +-------+ + +---+---+ +---+---+ | | | +---+---+ + +-------+ + +---+ + | insulin glargine (LANTUS | Given | 06/10/20 | 20 Units | | Arm-Left | | SOLOSTAR) injection (pen) 20 | | 19 12:09 | | | Upper | | Units 20 Units, Subcutaneous, | | AM PDT | | | | | NIGHTLY, First dose on Sat | | | | | | | 06/09/19 at 2245, For subcutaneous | | | | | | | use only. Basal (long acting) | | | | | | | insulin., If NPO: Decrease dose, | | | | | | | by: 25% | | | | | | + +-------+ + +---+ + +---+---+ | | | +---+---+ + +-------+ +---------+---+ + | insulin lispro (humaLOG) | Given | 06/10/20 | 1 Units | | Abdomen- | | injection (vial) 0-30 Units 0-30 | | 19 8:11 | | | RUQ | | Units, Subcutaneous, 4 TIMES | | AM PDT | | | | | DAILY WITH MEALS & NIGHTLY, First | | | | | | | dose on 06/10/19 at 0030, 1 | | | | | | | unit for every 7g of carbs and | | | | | | | then correction scale of 1 units | | | | | | | for BS every 50 above 200 Only | | | | | | | for use with U-100 insulin | | | | | | | syringe., | | | | | | + +-------+ +---------+---+ + +-------+ +---------+---+ + | Given | 06/10/20 | 1 Units | | Arm-Left | | | 19 3:42 | | | Upper | | | AM PDT | | | | +-------+ +---------+---+ + + +---+ | | | + +---+ | labetalol (TRANDATE) 5 mg/mL | | | injection 10 mg 10 mg, | | | Intravenous, EVERY 4 HOURS PRN, | | | BP >180, Starting 06/10/19 at | | | 0025 | | + +---+ | | | + +---+ | lidocaine (LIDODERM) 5% patch 1 | | | patch 1 patch, Transdermal, | | | DAILY, First dose on 06/09/19 | | | at 2330, Apply for 12 hours, then | | | remove for 12 hours., Time to | | | remove patch: 10:00 AM | | + +---+ | | | + +---+ + +-------+ +-------+---+---+ | metoprolol tartrate (LOPRESSOR) | Given | 06/10/20 | 50 mg | | | | tablet 50 mg 50 mg, Oral, 2 | | 19 8:08 | | | | | TIMES DAILY, First dose on Sat | | AM PDT | | | | | 06/09/19 at 2245 | | | | | | + +-------+ +-------+---+---+ +-------+ +-------+---+---+ | Given | 06/09/20 | 50 mg | | | | | 19 11:48 | | | | | | PM PDT | | | | +-------+ +-------+---+---+ +---+---+ | | | +---+---+ + +---------+ +---+-------+---+ | sodium chloride 0.9% (NS) | New Bag | 06/10/20 | | 100 | | | infusion at 100 mL/hr, | | 19 12:14 | | mL/hr | | | Intravenous, CONTINUOUS, Starting | | AM PDT | | | | | 06/09/19 at 2345 | | | | | | + +---------+ +---+-------+---+ +---+---+ | | | +---+---+ + +-------+ + +---+---+ | technetium TC-99M albumin | Given | 06/10/20 | 6.1 | | | | aggregated (MAA) injection 6.1 | | 19 9:10 | millicur | | | | millicurie 6.1 millicurie, | | AM PDT | ies | | | | Intravenous, ONCE PRN, Other, | | | | | | | Starting 06/10/19 at 0845, For | | | | | | | 1 dose, Nuclear Medicine | | | | | | + +-------+ + +---+---+ +---+---+ | | | +---+---+ + +-------+ + +---+---+ | xenon XE-133 (XENEISOL) | Given | 06/10/20 | 14 | | | | inhalation 14 millicurie 14 | | 19 8:55 | millicur | | | | millicurie, Inhalation, ONCE PRN, | | AM PDT | ies | | | | Other, Starting 06/10/19 at | | | | | | | 0845, For 1 dose, Nuclear | | | | | | | Medicine | | | | | | + +-------+ + +---+---+ +---+---+ | | | +---+---+ documented in this encounter
--- OUTSIDE RECORDS SUMMARY | ~2020-03-21 | XMS | Encounter Summary ---
Demographics + + + | Address | [address] | | | [place] [address] | + + + | Home Phone | | + + + | Preferred Language | Unknown | + + + | Marital Status | Single | + + + | Tenriism Affiliation | NON | + + + [...] Samantha Ramos | ECON | [address] | | | | | [place], [place] | | | | | [address] | | + + + + + Care Team Providers + +------+ + | Care Sample Tailor Name | Role | Phone | + [...] as of this encounter Progress Notes Interface, Field Software Engineer In - 04/25/2005 12:43 AM [facility] [id number] [facility] Date: 09/30/2004 Clinic: [facility] Subjective: Alin is an almost 14-year-old young boy with type 1 diabetes. The family is new to clinic, here to establish care for his ongoing diabetes management. Alin is usually followed by his primary care doctor, Dr. Mojica in [place]. The family does have several questions and are quite interactive in today's visit. Previous Diabetes Education: Alin was diagnosed with type 1 diabetes on April 2002, at that time, he was admitted to the hospital in [place], [place] where the family did receive initial [...] to the football practice. Meal Planning: The pediatric oncologist Shannon Early did meet with the family [...] also involved in football. 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 I discussed the importance of being [...] the family's first visit here to the [facility]. The family is interactive at [...] to the Diabetes Team. Estefany Hathaway R.N. / CONTRERAS [id number] / [id number] / [id number] / [id number] CDRCP Electronically signed by Estefany Hathaway 10-05-2004 02:25:46 PM documented i n this encounter Plan of Treatment Not on filedocumented as of this encounter Visit Diagnoses Not on filedocumented in this encounter
--- OUTSIDE RECORDS SUMMARY | ~2020-03-21 | XMS | Encounter Summary ---
Demographics + + + | Address | [address] | | | [place] [address] | + + + | Home Phone | | + + + | Preferred Language | Unknown | + + + | Marital Status | Single | + + + | Sikhism Affiliation | Unknown | + + + [...] [place] | | | | | [address] | | + + + + + Care Team Providers + +------+ + | Care Commercial Construction Estimator Name | Role | Phone | + [...] | | | | | without | [address] | [place], | | | | | complication | [place], | [place] [address] | | | | | s ([facility]) | [place] [address] | Phone: | | | | | Unspecified | Phone: | [phone] | | | | | abdominal | [phone] | Fax: | | | | | pain | Fax: | [phone] | | | | | Functional | [phone] | | | | | | intestinal [...] + + | 02/14/ | Office | [address] [place] | [place], | Diabetic | | 2019 | Visit | GASTROENTEROLOGY | DANA [address] | gastroparesis (HCC) | | | | [address] | [address] | (Primary Dx); Weight | | | | [address] [place], [place] | [place], [place] | loss; Malnutrition, | | | | [address] | [address] | unspecified type | | | | [phone] | | ([facility]); 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 | | | | | | ([facility]); Anemia of | | | | | | chronic renal | | | | | | failure, stage 3 | | | | | | (moderate) (HCC) | +--------+---------+ + + + Social [...] documented as of this encounter Progress Notes Vicky Kelley ARNP - 02/14/2019 10:00 AM PDTFormatting of this [...] STENT PLACEMENT; Surgeon: Tc Mora MD; Location: [facility] Family History Problem Relation [...] 0 0 - 4 Final UA Specific [place], External 01/21/2019 1.016 1.005 - 1.03 Final [...] 3 (moderate) (HCC) Plan: Urgent referral to [facility] gastro enterology. Patient significantly malnourished due to nausea and vomiting. CC: VIKI Anand This note was dictated using voice recognition software. Please contact me if there are an y questions regarding its content.Electronically signed by DANA Banuelos at 02/14 12:42 PM PDTdocumented in this encounter Plan of Treatment +--------+---------+ + + + | Date | Type | Specialty | Care Team | Description | +--------+---------+ + + + | 05/07/ | Office | Nephrology | Winston Whitman MD | | | 2019 | Visit | | [address] [facility] | | | | | | [address] [place], [place] | | | | | | [address] | | | | | | | [...]
--- OUTSIDE RECORDS SUMMARY | ~2020-03-21 | XMS | Encounter Summary ---
Demographics + + + | Address | [address] | | | [place] [address] | + + + | Home Phone | | + + + | Preferred Language | Unknown | + + + | Marital Status | Single | + + + | Rastafarian Affiliation | NON | + + + [...] Samantha Ramos | ECON | [address] | | | | | [place] | | | | | [address] | | + + + + + Care Team Providers + +------+ + | Care Ginning Operator Name | Role | Phone | [...] [address] | | | | | [place], [place] | [place], [place] | | | | | [address] | [address] | | | | | [phone] | [phone] | | | | | | | [...] | | | SERUM | performed by [facility] | | | | [facility] | | | | | [facility]. | | | | + + + + + + + + | Specimen | + + | | + + + + + + + | Performing | Address | City/State/Zipcode | Phone Number | | Organization | | | | + + + + + | [facility] | [address] | [place] [address] | | | LABORATORY | | | [...] | + + + + + | [facility] | [address] | [place] [address] | | | LABORATORY | | | | + + + + + documented in this encounter Visit Diagnoses Not on filedocumented in this encounter"
--- OUTSIDE RECORDS SUMMARY | ~2020-03-21 | XMS | Encounter Summary ---
Demographics + + + | Address | [address] | | | [place] [address] | + + + | Home Phone [...] | Samantha Ramos | ECON | [address] | | | | | [place] | | | | | [address] | | + + + + + Care Team Providers + +------+ + | Care Pipelines Superintendent Name | Role | Phone | + +------+ + PCP | Unavailable | + +------+ + Encounter Details +--------+ + + + + | Date | Type | Department | Care Team | Description | +--------+ + + + + | 08/27/ | Office | [facility] | Clinic, Pediatric | Progress Note | | 2005 | Visit-Trans | RESIDENT CARE SUPERVISOR | Endocrinology | | | | [...] as of this encounter Progress Notes Interface, Operating Room Scheduler In - 10/18/2005 10:01 PM PST [id number] MARQUEZ RAYMOND [facility] Date: 08/27/2005 [...] the school week, his father lives in [place], and apparently the school is better and [...] was 56. Diet: Brooks is on a cnbfkhtydzrj-yk-sbleinc ratio. He has had dietary education about [...] sites. Assessment: Brooks is a 14-year and 34-oofnr-cqq boy with type 1 diabetes, who has poor control although it is somewhat improved from previously. He is relatively noncompliant with his diabetes. I have made the following recommendations: 1. I have asked the family to review carbohydrate counting with our raise driller today. 2. I have recommended to Brooks [...] in 4 months' time. Ashanti Roque M.D. Client Manager [facility] / [id number] / [id number] / [id number] / [id number] cc: Neri Mojica [address] [facility] [place] [address]. Electronically signed by Ashanti Roque 09-10-2005 04:52:54 PM documented i n this encounter Plan of Treatment Not on filedocumented as of this encounter Visit Diagnoses Not on filedocumented in this encounter"
--- OUTSIDE RECORDS SUMMARY | ~2020-03-21 | XMS | Encounter Summary ---
Demographics + + + | Address | [address] | | | [place] [address] | + + + | Home Phone | | + + + | Preferred Language | Unknown | + + + | Marital Status | Single | + + + | Anglican Affiliation | NON | + + + [...] Samantha Ramos | ECON | [address] | | | | | [place] | | | | | [address] | | + + + + + Care Team Providers + +------+ + | Care Remedial Masseur Name | Role | Phone | + [...] 2005 | Only | [address] | [phone] | | | | | Rd Mailcode: [id number] | | | | | | [place], [place] | | | | | | [address] | | | | | | [phone] | | | +--------+ + + + [...]
--- OUTSIDE RECORDS SUMMARY | ~2020-03-21 | XMS | Encounter Summary ---
Demographics + + + | Address | [address] | | | [place] [address] | + + + | Home Phone | | + + + | Preferred Language | Unknown | + + + | Marital Status | Single | + + + | Adventism Affiliation | NON | + + + | Race | White | + + + | Ethnic Group | Not or | + + + Author + + + | Author | [facility] | + + + | Organization | [facility] | + + + | Address | Unknown | + + + | Phone | Unavailable | + + + Support + + + + + | Name | Relationship | Address | Phone | + + + + + | Samantha Ramos | ECON | [address] | | | | | [place] | | | | | [address] | | + + + + + Care Team Providers + +------+ + | Care Dag Coater Name | Role | Phone | + [...] | | | | | Procedures | [place], [place] | floor | | | | | CONSULT TO | [address] | [place], [place] | | | | | GI PROCEDURE | Phone: | [address] | | | | | UNIT: EGD | [phone] | Phone: | | | | | | Fax: | [phone] | | | | | | [phone] | Fax: | | | | | | | [phone] | + +--------+ + + + + [...] Ave | | | | | s ([facility]) | [facility] | Mailcode: | | | | | Procedures | [facility] | Center for | | | | | CONSULT TO | Rd | Health and | | | | | SURGERY - | [facility], [place] | [facility], | | | | | GENERAL | [address] | Building [address] | | | | | CONSULT TO | Phone: | [place], [place] | | | | | SURGERY - | [phone] | [address] | | | | | GENERAL | Fax: | Phone: | | | | | | [phone] | [phone] | | | | | | | Fax: | | | | | | | [phone] | +--------+--------+ + + + + Encounter [...] | | | [address] | [place], [place] | (Primary Dx) | | | | Mailcode: [place] | [address] | | | | | for Health and | [phone] | | | | | [facility] | | | | | | [facility] [place] | | | | | | [address] | | | | | | [phone] | | | +--------+---------+ + + + [...] might be different fr om the original. [facility] Department [facility] [...] was mildly elevated but no evidence of MO. V/Q was neg f or PE. Functional [...] Vitals reviewed. Labs/Cultures/Pathology: HBA1c 9.8% Imaging/Diagnostic Studies: DE GASTRIC EMPTYING STUDY 07/25/19: - No report - Severe gastroparesis seen DE GASTRIC EMPTYING STUDY Order: [id number] Status: Final result Visible to patient: No (Not Released) Details Reading Physician Reading Date Result Priority Emmanuel Mohamud MD 08/27/2015 Routine Component 3yr ago DE GASTRIC EMPTYING EXAM: Gastric emptying study on [...] t he above plan. Silke Flores MD [facility] Pager #[phone] STAFF: A resident assisted with documenting this [...]
--- OUTSIDE RECORDS SUMMARY | ~2020-03-21 | XMS | Clinical Summary ---
Demographics + + + | Address | [address] | | | [place] [address] | + + + | Home Phone | | + + + | Preferred Language | Unknown | + + + | Marital Status | Single | + + + | Hoahaoism Affiliation | Unknown | + + + | Race | Unknown | + + + | Ethnic Group | Unknown | + + + Author + + + | Author | [facility] | | | and [place] | + + + | Organization | [facility] | | | [...] [id number] | | | | | [address] | | + + + + + Care Team Providers + +------+ + | Care Research Contracts Supervisor Name | Role | Phone | + +------+ + | Emmanuel Saavedra | PCP | | + +------+ + Allergies + + + + + + | Active Allergy | Reactions | Severity | Noted | Comments | | | | | Date | | + + + + + + | Clindamycin | Other (See Comments) | | 03/13/20 | Per mother facial | | | | | 20 | swelling, eyes | | | | | | swelled shut, | | | | | | nausea, vomiting. | + + + + + + | Codeine | Nausea And Vomiting | | 05/15/20 | Reaction: | | | | | 18 | Projectile vomit | + + + + + + | Vancomycin | Nausea And Vomiting, | Low | 03/04/20 | Vancomycin and | | | Swelling, Rash | | 20 | cipro | + + + + + + [...] 2 | | 0 | | | Activ | | (ZOFRAN ODT) 8 mg | times daily. | | | | | e | | disintegrating | | | | | | | | tablet | | | | | | | + + + +---------+------+------+-------+ | GLUCAGON EMERGENCY | Inject 1 mg into the | | 0 | 10/2 | | Activ | | 1 MG injection | muscle once. | | | 5/20 | | e | | | | | | 18 | | | + + + +---------+------+------+-------+ | pregabalin | Take 100 mg by mouth | | 0 | | | Activ | | (LYRICA) 100 mg | 3 times daily as | | | | | e | | capsule | needed. For pain | | | | | | + + + +---------+------+------+-------+ | hyoscyamine | Place 0.125 mg under | | 0 | | | Activ | | (LEVSIN) 0.125 mg SL | the tongue every 4 | | | | | e | | tablet | hours as needed for | | | | | | | | Cramping or | | | | | | | | Diarrhea. | | | | | | + + + +---------+------+------+-------+ | sertraline | Take 1 tablet by | 30 | 1 | 05/2 | | Activ | | (ZOLOFT) 50 mg | mouth Daily. | tablet | | 9/20 | | e | | tablet | | | | 20 | | | + + + +---------+------+------+-------+ | | Take 1 tablet by | 8 | 0 | 06/1 | | Activ | | HYDROcodone-acetamin | mouth Twice daily | tablet | | 9/20 | | e | | ophen (NORCO) 10-325 | as needed for Pain | | | 20 | | | | mg per tablet | | | | | | | + + + +---------+------+------+-------+ | insulin glargine | Inject 5 Units under | 30 pen | 0 | 02/24 | | Activ | | (LANT SOLOSTAR) | the skin nightly | | | 06/15 | | e | | 100 units/mL | | | | 20 | | | | injection (pen) | | | | | | | + + + +---------+------+------+-------+ | insulin lispro | Inject 0-6 Units | 120 pen | 0 | 02/24 | | Activ | | (HUMALOG KWIKPEN) | under the skin 4 | | | 06/15 | | e | | 100 units/mL | times daily (with | | | 20 | | | | injection (pen) | meals and nightly) | | | | | | | | Blood Glucose (BG) < | | | | | | | | 150: None BG | | | | | | | | 150-200: DAY: 1 | | | | | | | | units. NIGHT: 0 | | | | | | | | units BG 201-250: | | | | | | | | DAY: 2 units. | | | | | | | | NIGHT: 1 units BG | | | | | | | | 251-300: DAY: 3 | | | | | | | | units. NIGHT: 2 | | | | | | | | units BG 301-350: | | | | | | | | DAY: 4 units. | | | | | | | | NIGHT: 3 units BG | | | | | | | | 351-400: DAY: 5 | | | | | | | | units. NIGHT: 4 | | | | | | | | units BG > 400 | | | | | | | | : DAY: 6 units. | | | | | | | | NIGHT: 5 units and | | | | | | | | contact PROVIDER | | | | | | + + + +---------+------+------+-------+ | loperamide | Take 1 capsule (2 mg | 30 | 0 | 06/1 | | Activ | | (IMODIUM) 2 mg | total) by mouth | capsule | | 9/20 | | e | | capsule | every 3 hours as | | | 20 | | | | | needed for Diarrhea | | | | | | + + + +---------+------+------+-------+ | calcium acetate | Take 2 capsules | 180 | 0 | 06/1 | | Activ | | (PHOSLO) 667 mg | (1,334 mg total) by | capsule | | 9/20 | | e | | capsule | mouth 3 times daily | | | 20 | | | | | (with meals) | | | | | | + + + +---------+------+------+-------+ | cholestyramine | Take 1 packet (4 g | 60 | 0 | 06/1 | | Activ | | light (QUESTRAN) 4 g | total) by mouth 2 | packet | | 9/20 | | e | | packet | times daily | | | 20 | | | + + + +---------+------+------+-------+ | fentaNYL | Place 1 patch onto | 2 patch | 0 | 06/2 | | Activ | | (DURAGESIC) 12 | the skin every 72 | | | 1/20 | | e | | mcg/hr | hours | | | 20 | | | + + + +---------+------+------+-------+ | metoprolol | Take 1 tablet (25 mg | 60 | 0 | 06/1 | | Activ | | tartrate (LOPRESSOR) | total) by mouth 2 | tablet | | 9/20 | | e | | 25 mg tablet | times daily | | | 20 | | | + + + +---------+------+------+-------+ | insulin lispro | Inject under the | | 0 | | 06/1 | Disco | | (HUMALOG KWIKPEN) | skin 4 times daily | | | | 9/20 | ntinu | | 100 units/mL | (before meals and | | | | 20 | ed | | injection (pen) | nightly). 1 unit for | | | | | | | | every 10 carbs | | | | | | + + + +---------+------+------+-------+ | metoprolol | Take 50 mg by mouth | | 0 | | 05/2 | Disco | | tartrate (LOPRESSOR) | Daily. | | | | 8/20 | ntinu | | 50 mg tablet | | | | | 20 | ed | + + + +---------+------+------+-------+ | lisinopril | Take 5 mg by mouth | | 0 | 08/27 | 02/24 | Disco | | (PRINIVIL, ZESTRIL) | Daily. | | | 2 | 8/20 | ntinu | | 10 mg tablet | | | | 18 | 20 | ed | | | | | | | | (Ther | | | | | | | | apy | | | | | | | | compl | | | | | | | | eted) | + + + +---------+------+------+-------+ | | Take 1 tablet by | | 0 | 01/26 | 02/24 | Disco | | HYDROcodone-acetamin | mouth 4 times daily. | | | 10/15 | 9/20 | ntinu | | ophen (NORCO) 10-325 | | | | 19 | 20 | ed | | mg per tablet | | | | | | | + + + +---------+------+------+-------+ | metoclopramide | Take 10 mg by mouth | | 0 | | 05/2 | Disco | | (REGLAN) 10 mg | 2 times daily. | | | | 8/20 | ntinu | | tablet | | | | | 20 | ed | | | | | | | | (Reor | | | | | | | | jessie) | + + + +---------+------+------+-------+ | insulin glargine | Inject 6 Units under | 1 pen | 0 | 04/1 | 05/2 | Disco | | (LANTUS SOLOSTAR) | the skin nightly. | | | 6/20 | 8/20 | ntinu | | 100 units/mL | | | | 20 | 20 | ed | | injection (pen) | | | | | | (Reor | | | | | | | | jessie) | + + + +---------+------+------+-------+ | Sodium | Dissolve 1 to 2 | | 0 | | 06/1 | Disco | | Bicarbonate-Citric | tablets in 4 ounces | | | | 8/20 | ntinu | | Acid (BRADEN-SELTZER | of water as needed | | | | 20 | ed | | HEARTBURN PO) | for heartburn | | | | | (Ther | | | | | | | | apy | | | | | | | | compl | | | | | | | | eted) | + + + +---------+------+------+-------+ | metoclopramide | Take 1 tablet by | | 0 | 05/2 | 060 | Disco | | (REGLAN) 10 mg | mouth Twice daily | | | 05/15 | 920 | ntinu | | tablet | as needed for | | | 20 | 20 | ed | | | Nausea. | | | | | (Alla | | | | | | | | ent | | | | | | | | Not | | | | | | | | Takin | | | | | | | | g) | + + + +---------+------+------+-------+ | insulin glargine | Inject 10 Units | 1 pen | 0 | 05/2 | 06 | Disco | | (LANTUS SOLOSTAR) | under the skin | | | 8/20 | 9/20 | ntinu | | 100 units/mL | nightly. | | | 20 | 20 | ed | | injection (pen) | | | | | | | + + + +---------+------+------+-------+ | carvedilol (COREG) | Take 1 tablet by | 60 | 0 | 05/2 | 02/24 | Disco | | 25 mg tablet | mouth 2 times daily | tablet | | 8/20 | 9/20 | ntinu | | | (with breakfast & | | | 20 | 20 | ed | | | dinner) for 30 days. | | | | | | + + + +---------+------+------+-------+ | furosemide (LASIX) | Take 1 tablet by | 60 | 0 | 05/2 | 1 | Disco | | 80 mg tablet | mouth 2 times daily | tablet | | 8/20 | 9/20 | ntinu | | | for 30 days. | | | 20 | 20 | ed | + + + +---------+------+------+-------+ | melatonin 3 mg | Take 1 tablet by | 30 | 0 | 05/2 | 06/1 | Disco | | TABS | mouth nightly as | tablet | | 8/20 | 8/20 | ntinu | | | needed for Insomnia. | | | 20 | 20 | ed | | | | | | | | (Ther | | | | | | | | apy | | | | | | | | compl | | | | | | | | eted) | + + + +---------+------+------+-------+ | ciprofloxacin | Take 1 tablet by | 5 | 0 | 05/2 | 06/ | Disco | | (CIPRO) 500 mg | mouth Daily. | tablet | | / | 8/20 | ntinu | | tablet | | | | 20 | 20 | ed | | | | | | | | (Ther | | | | | | | | apy | | | | | | | | compl | | | | | | | | eted) | + + + +---------+------+------+-------+ | vancomycin 125 mg | Take 1 capsule by | 14 | 0 | 05/2 | 02/24 | Disco | | capsuleIndications: | mouth 2 times daily. | capsule | | 05/15 | 8 | ntinu | | Clostridium | Indications: | | | 20 | 20 | ed | | difficile | Clostridium | | | | | (Ther | | | difficile Bacteria | | | | | apy | | | | | | | | compl | | | | | | | | eted) | + + + +---------+------+------+-------+ | Sodium | Take 1-2 tablets by | | 0 | | 06/1 | Disco | | Bicarbonate-Citric | mouth Daily | | | | 9/20 | ntinu | | Acid (JAMIA | | | | | 20 | ed | | HEARTBURN PO) | | | | | | | + + + +---------+------+------+-------+ | loperamide | Take 2 mg by mouth 4 | | 0 | | 02/24 | Disco | | (IMODIUM) 2 mg | times daily as | | | | 06/15 | ntinu | | capsule | needed for Diarrhea | | | | 20 | ed | + + + +---------+------+------+-------+ Active Problems + + + | Problem | Noted Date | + + + | Severe protein-calorie malnutrition | 03/11/2020 | + + + | Acute metabolic encephalopathy | 03/09/2020 | + + + | Hypoglycemia | 03/09/2020 | + + + | Hypernatremia | 03/04/2020 | + + + | Chronic diarrhea | 03/04/2020 | + + + | Hypoalbuminemia | 03/04/2020 | + + + | Community acquired pneumonia of right lower lobe of lung | 02/16/2020 | + + + | Chest pain | 06/09/2019 | + + + | Acute kidney injury superimposed on chronic kidney disease | 06/09/2019 | + + + | Anemia of chronic renal failure, stage 4 (severe) | 01/15/2019 | + + + | CKD (chronic kidney disease) stage 4, GFR 15-29 ml/min | 01/15/2019 | + + + | [...] | + + + + + | Essential hypertension | 09/19/2018 | + + + | [...] | +--------+ + + + + | 03/20/ | Telephone | Case Management | Anne Neal, | Case Management | | 2019 | | | RN | (specialized | | | | | | wheelchair/referral | | | | | | needed to wheelchair | | | | | | clinic) | +--------+ + + + + | 03/09/ | Hospital | | Allen Barnes, | Acute metabolic | | 2019 - | Encounter | | Fidel Horn | encephalopathy; CKD | | | | | MD Can | (chronic kidney | | 03/14/ | | | | disease) stage 4, | | 2019 | | | | GFR 15-29 ml/min | | | | | | (HCC); Hypoglycemia; | | | | | | Severe | | | | | | protein-calorie | | | | | | malnutrition (HCC); | | | | | | 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); | | | | | | Essential | | | | | | hypertension; | | | | | | Diabetic | | | | | | gastroparesis (HCC); | | | | | | Epigastric pain; | | | | | | Goals of care, | | | | | | counseling/discussio | | | | | | n; Palliative care | | | | | | by specialist | +--------+ + + + + | 03/06/ | Telephone | Case Management | Anne Neal, | Case Management | | 2019 | | | RN | (follow up about | | | | | | custom wheelchair) | +--------+ + + + + | 03/04/ | Virtual | Nephrology | Winston Whitman MD | CKD (chronic kidney | | 2020 | Office | | | disease) stage 4, | | | Visit | | | GFR 15-29 ml/min | | | | | | (HCC) (Primary Dx); | | | | | | Anemia of chronic | | | | | | renal failure, stage | | | | | | 4 (severe) ([facility]); | | | | | | Electrolyte [...] mellitus | | | | | | (HCC); Essential | | | | | | hypertension; | | | | | | Hypernatremia; | | | | | | Chronic diarrhea; | | | | | | Hypoalbuminemia | +--------+ + + + + | 03/04/ | Orders Only | Nephrology | Winston Whitman MD | Essential | | 2020 | | | | hypertension | | | | | | (Primary Dx); 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 | | | | | | ([facility]); CKD (chronic | | | | | | kidney disease) | | | | | | stage 4, GFR 15-29 | | | | | | ml/min ([facility]); | | | | | | Nephrotic range | | | | | | proteinuria | +--------+ + + + + | 02/27/ | Documentati | Nephrology | Kendrick | Christian (02/27/20) | | 2020 | on | | Alonzo Campos | | | | | | Food Adviser | | +--------+ + + + + | 02/18/ | Imaging | Radiology | Divya, | | | 2019 | Exam | | MD Vahid | | +--------+ + + + + | 02/18/ | Orders Only | Nephrology | Roxie Murrell | CKD (chronic kidney | | 2019 | | | M, DO | disease), stage III | | | | | | (HCC) (Primary Dx) | +--------+ + + + + | 02/18/ | Documentati | Nephrology | Kendrick | Christian (02/15/20) | | 2019 | on | | Alonzo Campos | | | | | | Food Adviser | | +--------+ + + + + | 02/15/ | E-Visit | Nephrology | Roxie Murrell | | | 2019 | | | M, DO | | +--------+ + + + + | 02/14/ | Hospital | | Alexandr Smalls MD | Diabetic | | 2019 - | Encounter | | Meggan Cary, | gastroparesis (HCC) | | | | | Savage Chaudhry | (Primary Dx); Acute | | 02/20/ | | | DO Neri | kidney injury | | 2019 | | | | superimposed on | | | | | | chronic kidney | | | | | | disease ([facility]); | | | | | | Anemia of chronic | | | | | | renal failure, stage | | | | | | 3 (moderate) ([facility]); | | | | | | Community acquired | | | | | | pneumonia of right | | | | | | lower lobe of lung; | | | | | | Current smoker; | | | | | | Hyperkalemia; 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 | | | | | | ([facility]); Anemia of | | | | | | chronic renal | | | | | | failure, stage 4 | | | | | | (severe) ([facility]); | | | | | | Metabolic acidosis, | | | | | | normal anion gap | | | | | | (NAG); Type 1 DM | | | | | | with CKD stage 4 and | | | | | | hypertension ([facility]); | | | | | | Essential | | | | | | hypertension, | | | | | | malignant; Fissure | | | | | | in skin of foot; CKD | | | | | | (chronic kidney | | | | | | disease), stage III | | | | | | ([facility]) | +--------+ + + + + | 01/10/ | Imaging | Radiology | Provider, | | | 2019 | Exam | | MD Vahid | | +--------+ + + + + | 01/05/ | Hospital | | Erika Allison MD | Generalized weakness | | 2019 - | Encounter | | Willard Aldrich | (Primary Dx); | | | | | MD Bernadette | Diabetic | | 01/09/ | | | | ketoacidosis without | | 2020 | | | | coma associated | | | | | | with type 1 diabetes | | | | | | mellitus ([facility]); | | | | | | Acute renal failure | | | | | | superimposed on | | | | | | stage 3 chronic | | | | | | kidney disease, | | | | | | unspecified acute | | | | | | renal failure type | | | | | | ([facility]); Diabetic | | | | | | gastroparesis ([facility]); | | | | | | 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 | | | | | | with type 1 | | | | | | diabetes mellitus, | | | | | | unspecified part of | | | | | | foot, unspecified | | | | | | ulcer stage ([facility]) | +--------+ + + + + from [...] + + + | Blood Pressure | 156/88 | 03/14/2020 7:38 AM | | | | | PDT | | + + + + + | Pulse | 86 | 03/14/2020 7:38 AM | | | | | PDT | | + + + + + | Temperature | 35.5 C (95.9 F) | 03/14/2020 7:38 AM | | | | | PDT | | + + + + + | Respiratory Rate | 18 | 03/14/2020 7:38 AM | | | | | PDT | | + + + + + | Oxygen Saturation | 100% | 03/14/2020 7:38 AM | | | | | PDT | | + + + + + | Inhaled Oxygen | - | - | | | Concentration | | | | + + + + + | Weight | 67.4 kg (148 lb 9.4 | 03/12/2020 1:50 AM | | | | oz) | PDT | | + + + + + | Height | 188 cm (6' 2") | 02/16/2020 5:28 AM | | | | | PDT | | + + + + + | Body Mass Index | 19.08 | 02/16/2020 5:28 AM | | | | | PDT | | + + + + + Plan of Treatment +--------+---------+ + + + | Date | Type | Specialty | Care Team | Description | +--------+---------+ + + + | 05/07/ | Office | Nephrology | Winston Whitman MD | | | 2020 | Visit | | [address] [facility] | | | | | | [address] [facility] [facility] [facility] | | | | | | [id number] | | | | | | | | +--------+---------+ + + + + + + + + | Health Maintenance | Due Date | Last | Comments | | | | Done | | + + + + + | Diabetic Eye Exam | | | | | | 8 | | | + + + + + | Diabetic Foot Exam | | | | | | 8 | | | + + + + + | Hemoglobin A1c | | 06/10/20 | | | Screening | 9 | 19, | | | | | 05/15/20 | | | | | 18 | | + + + + + | Vaccine: Influenza | | 09/20/20 | | | (Season Ended) | 0 | 18, | | | | | 07/02/20 | | | | | 15, | | | | | 08/23/20 | | | | | 06 | | + + + + + | Urine Drug Screening | | 03/09/20 | | | | 1 | 20, | | | | | 01/06/20 | | | | | 20, | | | | | 01/22/20 | | | | | 19 | | + + + + + | Vaccine: | | 02/18/20 | | | Dtap/Tdap/Td (8 - | 4 | 14, | | | Td) | | 05/09/20 | | | | | 06, | | | | | 05/15/19 | | | | | 99, | | | | | Addition | | | | | al | | | | | history | | | | | exists | | + + + + + | Vaccine: | Completed | 07/02/20 | | | Pneumococcal 19-64 | | 15, | | | | | 05/25/20 | | | | | 14, | | | | | 04/10/20 | | | | | 14 | | + + + + + [...] Right: | [employer]OOK | | 07/14/ | [id number] | | 22-32 - [id number]: | | | [employer] | | 2020 | / | | Qty: 1 on 09/19/2018 by | | Ureter | - COOK | | | /[id number] | | Tc Mora MD at | | | | | | 43 | | [facility] | | | | | | | | [facility] | | | | | | | + +-------+--------+ +--------+--------+--------+ Procedures + +--------+ + + + | Procedure Name | Priori | Date/Time | Associated Diagnosis | Comments | | | ty | | | | + +--------+ + + + | POC GLUCOSE | Routin | 03/14/2020 | | Results for this | | | e | 12:21 PM | | procedure are in the | | | | PDT | | results section. | + +--------+ + + + | POC GLUCOSE | Routin | 03/14/2020 | | Results for this | | | e | 7:44 AM | | procedure are in the | | | | PDT | | results section. | + +--------+ + + + | POC GLUCOSE | Routin | 03/14/2020 | | Results for this | | | e | 6:59 AM | | procedure are in the | | | | PDT | | results section. | + +--------+ + + + | POC GLUCOSE | Routin | 03/14/2020 | | Results for this | | | e | 6:44 AM | | procedure are in the | | | | PDT | | results section. | + +--------+ + + + | EXTRA DAYTONENDER TOP | Routin | 03/14/2020 | | Results for this | | TUBE | e | 3:32 AM | | procedure are in the | | | | PDT | | results section. | + +--------+ + + + | RENAL FUNCTION PANEL | Routin | 03/14/2020 | | Results for this | | | e | 3:32 AM | | procedure are in the | | | | PDT | | results section. | + +--------+ + + + | POC GLUCOSE | Routin | 03/13/2020 | | Results for this | | | e | 10:00 PM | | procedure are in the | | | | PDT | | results section. | + +--------+ + + + | POC GLUCOSE | Routin | 03/13/2020 | | Results for this | | | e | 5:48 PM | | procedure are in the | | | | PDT | | results section. | + +--------+ + + + | POC GLUCOSE | Routin | 03/13/2020 | | Results for this | | | e | 11:38 AM | | procedure are in the | | | | PDT | | results section. | + +--------+ + + + | POC GLUCOSE | Routin | 03/13/2020 | | Results for this | | | e | 6:48 AM | | procedure are in the | | | | PDT | | results section. | + +--------+ + + + | EXTRA LAVENDER TOP | Routin | 03/13/2020 | | Results for this | | TUBE | e | 3:41 AM | | procedure are in the | | | | PDT | | results section. | + +--------+ + + + | RENAL FUNCTION PANEL | Routin | 03/13/2020 | | Results for this | | | e | 3:41 AM | | procedure are in the | | | | PDT | | results section. | + +--------+ + + + | POC GLUCOSE | Routin | 03/12/2020 | | Results for this | | | e | 10:05 PM | | procedure are in the | | | | PDT | | results section. | + +--------+ + + + | POC GLUCOSE | Routin | 03/12/2020 | | Results for this | | | e | 5:39 PM | | procedure are in the | | | | PDT | | results section. | + +--------+ + + + | POC GLUCOSE | Routin | 03/12/2020 | | Results for this | | | e | 11:47 AM | | procedure are in the | | | | PDT | | results section. | + +--------+ + + + | POC GLUCOSE | Routin | 03/12/2020 | | Results for this | | | e | 6:42 AM | | procedure are in the | | | | PDT | | results section. | + +--------+ + + + | RENAL FUNCTION PANEL | Routin | 03/12/2020 | | Results for this | | | e | 3:09 AM | | procedure are in the | | | | PDT | | results section. | + +--------+ + + + | POC GLUCOSE | Routin | 03/11/2020 | | Results for this | | | e | 8:38 PM | | procedure are in the | | | | PDT | | results section. | + +--------+ + + + | POC GLUCOSE | Routin | 03/11/2020 | | Results for this | | | e | 4:38 PM | | procedure are in the | | | | PDT | | results section. | + +--------+ + + + | BASIC METABOLIC | Routin | 03/11/2020 | | Results for this | | PANEL | e | 4:07 PM | | procedure are in the | | | | PDT | | results section. | + +--------+ + + + | CLOSTRIDIOIDES | STAT | 03/11/2020 | | Results for this | | DIFFICILE NAAT | | 3:59 PM | | procedure are in the | | REFLEX | | PDT | | results section. | + +--------+ + + + | CLOSTRIDIOIDES | STAT | 03/11/2020 | | Results for this | | DIFFICILE NAAT | | 3:59 PM | | procedure are in the | | REFLEX TO TOX AG | | PDT | | results section. | + +--------+ + + + | POC GLUCOSE | Routin | 03/11/2020 | | Results for this | | | e | 11:08 AM | | procedure are in the | | | | PDT | | results section. | + +--------+ + + + | POC GLUCOSE | Routin | 03/11/2020 | | Results for this | | | e | 7:35 AM | | procedure are in the | | | | PDT | | results section. | + +--------+ + + + | CBC WITH | Routin | 03/11/2020 | | Results for this | | DIFFERENTIAL | e | 4:07 AM | | procedure are in the | | | | PDT | | results section. | + +--------+ + + + | B TYPE NATRIURETIC | Routin | 03/11/2020 | | Results for this | | PEPTIDE | e | 4:06 AM | | procedure are in the | | | | PDT | | results section. | + +--------+ + + + | COMPREHENSIVE | Routin | 03/11/2020 | | Results for this | | METABOLIC PANEL | e | 4:06 AM | | procedure are in the | | | | PDT | | results section. | + +--------+ + + + | PHOSPHORUS | Routin | 03/11/2020 | | Results for this | | | e | 4:06 AM | | procedure are in the | | | | PDT | | results section. | + +--------+ + + + | MAGNESIUM | Routin | 03/11/2020 | | Results for this | | | e | 4:06 AM | | procedure are in the | | | | PDT | | results section. | + +--------+ + + + | PROCALCITONIN, SERUM | Routin | 03/11/2020 | | Results for this | | | e | 4:06 AM | | procedure are in the | | | | PDT | | results section. | + +--------+ + + + | POC GLUCOSE | Routin | 03/10/2020 | | Results for this | | | e | 9:51 PM | | procedure are in the | | | | PDT | | results section. | + +--------+ + + + | PROCALCITONIN, SERUM | Routin | 03/10/2020 | | Results for this | | | e | 6:11 PM | | procedure are in the | | | | PDT | | results section. | + +--------+ + + + | POC GLUCOSE | Routin | 03/10/2020 | | Results for this | | | e | 4:34 PM | | procedure are in the | | | | PDT | | results section. | + +--------+ + + + | POC GLUCOSE | Routin | 03/10/2020 | | Results for this | | | e | 11:44 AM | | procedure are in the | | | | PDT | | results section. | + +--------+ + + + | LACTIC ACID | Routin | 03/10/2020 | | Results for this | | | e | 8:41 AM | | procedure are in the | | | | PDT | | results section. | + +--------+ + + + | BASIC METABOLIC | Routin | 03/10/2020 | | Results for this | | PANEL | e | 8:41 AM | | procedure are in the | | | | PDT | | results section. | + +--------+ + + + | POC GLUCOSE | Routin | 03/10/2020 | | Results for this | | | e | 8:03 AM | | procedure are in the | | | | PDT | | results section. | + +--------+ + + + | CULTURE, BLOOD | STAT | 03/10/2020 | | Results for this | | | | 7:33 AM | | procedure are in the | | | | PDT | | results section. | + +--------+ + + + | CULTURE, BLOOD | STAT | 03/10/2020 | | Results for this | | | | 7:26 AM | | procedure are in the | | | | PDT | | results section. | + +--------+ + + + | XR CHEST AP PORTABLE | Routin | 03/10/2020 | | Results for this | | | e | 6:02 AM | | procedure are in the | | | | PDT | | results section. | + +--------+ + + + | BETA | Add-On | 03/10/2020 | | Results for this | | HYDROXYBUTYRATE, | | 4:12 AM | | procedure are in the | | QUANT | | PDT | | results section. | + +--------+ + + + | RENAL FUNCTION PANEL | Routin | 03/10/2020 | | Results for this | | | e | 4:12 AM | | procedure are in the | | | | PDT | | results section. | + +--------+ + + + | MAGNESIUM | Routin | 03/10/2020 | | Results for this | | | e | 4:12 AM | | procedure are in the | | | | PDT | | results section. | + +--------+ + + + | B TYPE NATRIURETIC | Routin | 03/10/2020 | | Results for this | | PEPTIDE | e | 4:11 AM | | procedure are in the | | | | PDT | | results section. | + +--------+ + + + | PROCALCITONIN, SERUM | Routin | 03/10/2020 | | Results for this | | | e | 4:11 AM | | procedure are in the | | | | PDT | | results section. | + +--------+ + + + | CBC WITH | Routin | 03/10/2020 | | Results for this | | DIFFERENTIAL | e | 4:11 AM | | procedure are in the | | | | PDT | | results section. | + +--------+ + + + | POC GLUCOSE | Routin | 03/09/2020 | | Results for this | | | e | 9:27 PM | | procedure are in the | | | | PDT | | results section. | + +--------+ + + + | EEG | Routin | 03/09/2020 | | Results for this | | | e | 6:29 PM | | procedure are in the | | | | PDT | | results section. | + +--------+ + + + | WEST NILE VIRUS AB, | Routin | 03/09/2020 | | Results for this | | IGG, IGM, CSF | e | 3:38 PM | | procedure are in the | | | | PDT | | results section. | + +--------+ + + + | POC GLUCOSE | Routin | 03/09/2020 | | Results for this | | | e | 3:30 PM | | procedure are in the | | | | PDT | | results section. | + +--------+ + + + | CULTURE, CSF, SMEAR | STAT | 03/09/2020 | | Results for this | | | | 3:20 PM | | procedure are in the | | | | PDT | | results section. | + +--------+ + + + | PROTEIN, CSF | Routin | 03/09/2020 | | Results for this | | | e | 3:19 PM | | procedure are in the | | | | PDT | | results section. | + +--------+ + + + | GLUCOSE, CSF | Routin | 03/09/2020 | | Results for this | | | e | 3:19 PM | | procedure are in the | | | | PDT | | results section. | + +--------+ + + + | CELL COUNT WITH | Routin | 03/09/2020 | | Results for this | | DIFFERENTIAL, CSF | e | 3:19 PM | | procedure are in the | | | | PDT | | results section. | + +--------+ + + + | VARICELLA ZOSTER, | Routin | 03/09/2020 | | Results for this | | NAAT | e | 3:19 PM | | procedure are in the | | | | PDT | | results section. | + +--------+ + + + | HC HERPES SIMPLEX | Routin | 03/09/2020 | | Results for this | | PCR | e | 3:19 PM | | procedure are in the | | | | PDT | | results section. | + +--------+ + + + | CULTURE, MRSA | Routin | 03/09/2020 | | Results for this | | | e | 2:57 PM | | procedure are in the | | | | PDT | | results section. | + +--------+ + + + | POC GLUCOSE | Routin | 03/09/2020 | | Results for this | | | e | 11:50 AM | | procedure are in the | | | | PDT | | results section. | + +--------+ + + + | POC GLUCOSE | Routin | 03/09/2020 | | Results for this | | | e | 7:09 AM | | procedure are in the | | | | PDT | | results section. | + +--------+ + + + | EXTRA GOLD TOP TUBE | Routin | 03/09/2020 | | Results for this | | | e | 6:36 AM | | procedure are in the | | | | PDT | | results section. | + +--------+ + + + | PTT | Routin | 03/09/2020 | | Results for this | | | e | 6:31 AM | | procedure are in the | | | | PDT | | results section. | + +--------+ + + + | PROTIME INR | Add-On | 03/09/2020 | | Results for this | | | | 6:31 AM | | procedure are in the | | | | PDT | | results section. | + +--------+ + + + | CT CHEST ABDOMEN | Routin | 03/09/2020 | | Results for this | | PELVIS WO CONTRAST | e | 4:59 AM | | procedure are in the | | | | PDT | | results section. | + +--------+ + + + | CT FOOT LEFT WO | Routin | 03/09/2020 | | Results for this | | CONTRAST | e | 4:56 AM | | procedure are in the | | | | PDT | | results section. | + +--------+ + + + | CULTURE, URINE | Add-On | 03/09/2020 | | Results for this | | | | 4:24 AM | | procedure are in the | | | | PDT | | results section. | + +--------+ + + + | TSH | Routin | 03/09/2020 | | Results for this | | | e | 3:47 AM | | procedure are in the | | | | PDT | | results section. | + +--------+ + + + | AMMONIA | Routin | 03/09/2020 | | Results for this | | | e | 3:47 AM | | procedure are in the | | | | PDT | | results section. | + +--------+ + + + | ALCOHOL | Routin | 03/09/2020 | | Results for this | | | e | 3:46 AM | | procedure are in the | | | | PDT | | results section. | + +--------+ + + + | PHOSPHORUS | Routin | 03/09/2020 | | Results for this | | | e | 3:46 AM | | procedure are in the | | | | PDT | | results section. | + +--------+ + + + | MAGNESIUM | Routin | 03/09/2020 | | Results for this | | | e | 3:46 AM | | procedure are in the | | | | PDT | | results section. | + +--------+ + + + | LACTIC ACID | Routin | 03/09/2020 | | Results for this | | | e | 3:46 AM | | procedure are in the | | | | PDT | | results section. | + +--------+ + + + | PROCALCITONIN, SERUM | Routin | 03/09/2020 | | Results for this | | | e | 3:46 AM | | procedure are in the | | | | PDT | | results section. | + +--------+ + + + | HEPATIC FUNCTION | Routin | 03/09/2020 | | Results for this | | PANEL | e | 3:46 AM | | procedure are in the | | | | PDT | | results section. | + +--------+ + + + | BASIC METABOLIC | Routin | 03/09/2020 | | Results for this | | PANEL | e | 3:46 AM | | procedure are in the | | | | PDT | | results section. | + +--------+ + + + | CBC WITH | Routin | 03/09/2020 | | Results for this | | DIFFERENTIAL | e | 3:45 AM | | procedure are in the | | | | PDT | | results section. | + +--------+ + + + | CULTURE, BLOOD | Routin | 03/09/2020 | | Results for this | | | e | 3:00 AM | | procedure are in the | | | | PDT | | results section. | + +--------+ + + + | CULTURE, BLOOD | Routin | 03/09/2020 | | Results for this | | | e | 2:45 AM | | procedure are in the | | | | PDT | | results section. | + +--------+ + + + | VITAMIN B-12 | Routin | 03/09/2020 | | Results for this | | | e | 1:10 AM | | procedure are in the | | | | PDT | | results section. | + +--------+ + + + | ECG 12 LEAD | Routin | 03/09/2020 | | Results for this | | | e | 1:07 AM | | procedure are in the | | | | PDT | | results section. | + +--------+ + + + | OSMOLALITY, URINE | Routin | 03/09/2020 | | Results for this | | | e | 12:56 AM | | procedure are in the | | | | PDT | | results section. | + +--------+ + + + | DRUGS OF ABUSE, | Routin | 03/09/2020 | | Results for this | | SCREEN, URINE | e | 12:56 AM | | procedure are in the | | | | PDT | | results section. | + +--------+ + + + | URINALYSIS WITH | Routin | 03/09/2020 | | Results for this | | MICROSCOPIC WITH | e | 12:56 AM | | procedure are in the | | CULTURE IF INDICATED | | PDT | | results section. | + +--------+ + + + | POC BLOOD GASES | Routin | 03/09/2020 | | Results for this | | | e | 12:54 AM | | procedure are in the | | | | PDT | | results section. | + +--------+ + + + | POC GLUCOSE | Routin | 03/09/2020 | | Results for this | | | e | 12:37 AM | | procedure are in the | | | | PDT | | results section. | + +--------+ + + + | EXTERNAL LAB: PTH, | Routin | 02/27/2020 | | Results for this | | INTACT | e | | | procedure are in the | | | | | | results section. | + +--------+ + + + | URINALYSIS | Routin | 02/27/2020 | | Results for this | | | e | | | procedure are in the | | | | | | results section. | + +--------+ + + + | CBC NO DIFFERENTIAL | Routin | 02/27/2020 | | Results for this | | | e | | | procedure are in the | | | | | | results section. | + +--------+ + + + | IRON AND IRON | Routin | 02/27/2020 | | Results for this | | BINDING CAPACITY | e | | | procedure are in the | | | | | | results section. | + +--------+ + + + | RENAL FUNCTION PANEL | Routin | 02/27/2020 | | Results for this | | | e | | | procedure are in the | | | | | | results section. | + +--------+ + + + | PROTEIN/CREATININE | Routin | 02/27/2020 | | Results for this | | RATIO, URINE | e | | | procedure are [...] +--------+ + + + | EXTERNAL LAB: PTH, | Routin | 02/15/2020 | | Results for this | | INTACT | e | | | procedure are in the | | | | | | results section. | + +--------+ + + + | URINALYSIS | Routin | 02/15/2020 | | Results for this | | | e | | | procedure are in the | | | | | | results section. | + +--------+ + + + | CBC NO DIFFERENTIAL | Routin | 02/15/2020 | | Results for this | | | e | | | procedure are in the | | | | | | results section. | + +--------+ + + + | IRON AND IRON | Routin | 02/15/2020 | | Results for this | | BINDING CAPACITY | e | | | procedure are in the | | | | | | results section. | + +--------+ + + + | RENAL FUNCTION PANEL | Routin | 02/15/2020 | | Results [...] | LABS - EXTERNAL SCAN | | 01/27/2020 | | Results for this | | | | 12:00 AM | | procedure are in the | | | | PDT | | results section. | + +--------+ + + + | POC GLUCOSE | Routin | 01/10/2020 | | Results for this | | | e | 11:36 AM | | procedure are in the | | | | PDT | | results section. | + +--------+ + + + | POC GLUCOSE | Routin | 01/10/2020 | | Results for this | | | e | 11:03 AM | | procedure are in the | | | | PDT | | results section. | + +--------+ + + + | POC GLUCOSE | Routin | 01/10/2020 | | Results for this | | | e | 6:54 AM | | procedure are in the | | | | PDT | | results section. | + +--------+ + + + | CBC WITH | Routin | 01/10/2020 | | Results for this | | DIFFERENTIAL | e | 4:33 AM | | procedure are in the | | | | PDT | | results section. | + +--------+ + + + | MAGNESIUM | Routin | 01/10/2020 | | Results for this | | | e | 4:33 AM | | procedure are in the | | | | PDT | | results section. | + +--------+ + + + | BASIC METABOLIC | Routin | 01/10/2020 | | Results for this | | PANEL | e | 4:33 AM | | procedure are in the | | | | PDT | | results section. | + +--------+ + + + | POC GLUCOSE | Routin | 01/09/2020 | | Results for this | | | e | 10:07 PM | | procedure are in the | | | | PDT | | results section. | + +--------+ + + + | POC GLUCOSE | Routin | 01/09/2020 | | Results for this | | | e | 5:49 PM | | procedure are in the | | | | PDT | | results section. | + +--------+ + + + | POC GLUCOSE | Routin | 01/09/2020 | | Results for this | | | e | 12:44 PM | | procedure are in the | | | | PDT | | results section. | + +--------+ + + + | POC GLUCOSE | Routin | 01/09/2020 | | Results for this | | | e | 6:46 AM | | procedure are in the | | | | PDT | | results section. | + +--------+ + + + | CBC WITH | Routin | 01/09/2020 | | Results for this | | DIFFERENTIAL | e | 4:40 AM | | procedure are in the | | | | PDT | | results section. | + +--------+ + + + | MAGNESIUM | Routin | 01/09/2020 | | Results for this | | | e | 4:40 AM | | procedure are in the | | | | PDT | | results section. | + +--------+ + + + | BASIC METABOLIC | Routin | 01/09/2020 | | Results for this | | PANEL | e | 4:40 AM | | procedure are in the | | | | PDT | | results section. | + +--------+ + + + | POC GLUCOSE | Routin | 01/08/2020 | | Results for this | | | e | 9:22 PM | | procedure are in the | | | | PDT | | results section. | + +--------+ + + + | POC GLUCOSE | Routin | 01/08/2020 | | Results for this | | | e | 4:20 PM | | procedure are in the | | | | PDT | | results section. | + +--------+ + + + | POC GLUCOSE | Routin | 01/08/2020 | | Results for this | | | e | 12:05 PM | | procedure are in the | | | | PDT | | results section. | + +--------+ + + + | POC GLUCOSE | Routin | 01/08/2020 | | Results for this | | | e | 6:07 AM | | procedure are in the | | | | PDT | | results section. | + +--------+ + + + | MAGNESIUM | Routin | 01/08/2020 | | Results for this | | | e | 4:44 AM | | procedure are in the | | | | PDT | | results section. | + +--------+ + + + | RENAL FUNCTION PANEL | Routin | 01/08/2020 | | Results for this | | | e | 4:44 AM | | procedure are in the | | | | PDT | | results section. | + +--------+ + + + | CBC WITH | Routin | 01/08/2020 | | Results for this | | DIFFERENTIAL | e | 4:44 AM | | procedure are in the | | | | PDT | | results section. | + +--------+ + + + | POC GLUCOSE | Routin | 01/07/2020 | | Results for this | | | e | 11:38 PM | | procedure are in the | | | | PDT | | results section. | + +--------+ + + + | POC GLUCOSE | Routin | 01/07/2020 | | Results for this | | | e | 8:26 PM | | procedure are in the | | | | PDT | | results section. | + +--------+ + + + | POC GLUCOSE | Routin | 01/07/2020 | | Results for this | | | e | 6:30 PM | | procedure are in the | | | | PDT | | results section. | + +--------+ + + + | POC GLUCOSE | Routin | 01/07/2020 | | Results for this | | | e | 5:07 PM | | procedure are in the | | | | PDT | | results section. | + +--------+ + + + | COVID-19 STAT | STAT | 01/07/2020 | | Results for this | | INSTRUCTION TO | | 2:47 PM | | procedure are in the | | [facility] ONLY | | PDT | | results section. | + +--------+ + + + | CORONAVIRUS | Routin | 01/07/2020 | | Results for this | | (COVID-19) NAAT | e | 2:47 PM | | procedure are in the | | | | PDT | | results section. | + +--------+ + + + | POC GLUCOSE | Routin | 01/07/2020 | | Results for this | | | e | 1:10 PM | | procedure are in the | | | | PDT | | results section. | + +--------+ + + + | POC GLUCOSE | Routin | 01/07/2020 | | Results for this | | | e | 12:35 PM | | procedure are in the | | | | PDT | | results section. | + +--------+ + + + | POC GLUCOSE | Routin | 01/07/2020 | | Results for this | | | e | 12:25 PM | | procedure are in the | | | | PDT | | results section. | + +--------+ + + + | POC GLUCOSE | Routin | 01/07/2020 | | Results for this | | | e | 8:28 AM | | procedure are in the | | | | PDT | | results section. | + +--------+ + + + | POC GLUCOSE | Routin | 01/07/2020 | | Results for this | | | e | 5:22 AM | | procedure are in the | | | | PDT | | results section. | + +--------+ + + + | PHOSPHORUS | Routin | 01/07/2020 | | Results for this | | | e | 4:42 AM | | procedure are in the | | | | PDT | | results section. | + +--------+ + + + | MAGNESIUM | Routin | 01/07/2020 | | Results for this | | | e | 4:42 AM | | procedure are in the | | | | PDT | | results section. | + +--------+ + + + | COMPREHENSIVE | Routin | 01/07/2020 | | Results for this | | METABOLIC PANEL | e | 4:42 AM | | procedure are in the | | | | PDT | | results section. | + +--------+ + + + | PROCALCITONIN, SERUM | Routin | 01/07/2020 | | Results for this | | | e | 4:42 AM | | procedure are in the | | | | PDT | | results section. | + +--------+ + + + | CBC WITH | Routin | 01/07/2020 | | Results for this | | DIFFERENTIAL | e | 4:42 AM | | procedure are in the | | | | PDT | | results section. | + +--------+ + + + | POC GLUCOSE | Routin | 01/07/2020 | | Results for this | | | e | 4:26 AM | | procedure are in the | | | | PDT | | results section. | + +--------+ + + + | POC GLUCOSE | Routin | 01/07/2020 | | Results for this | | | e | 3:18 AM | | procedure are in the | | | | PDT | | results section. | + +--------+ + + + | POC GLUCOSE | Routin | 01/07/2020 | | Results for this | | | e | 2:14 AM | | procedure are in the | | | | PDT | | results section. | + +--------+ + + + | POC GLUCOSE | Routin | 01/07/2020 | | Results for this | | | e | 1:17 AM | | procedure are in the | | | | PDT | | results section. | + +--------+ + + + | PHOSPHORUS | STAT | 01/07/2020 | | Results for this | | | | 12:20 AM | | procedure are in the | | | | PDT | | results section. | + +--------+ + + + | MAGNESIUM | STAT | 01/07/2020 | | Results for this | | | | 12:20 AM | | procedure are in the | | | | PDT | | results section. | + +--------+ + + + | BASIC METABOLIC | STAT | 01/07/2020 | | Results for this | | PANEL | | 12:20 AM | | procedure are in the | | | | PDT | | results section. | + +--------+ + + + | POC GLUCOSE | Routin | 01/07/2020 | | Results for this | | | e | 12:09 AM | | procedure are in the | | | | PDT | | results section. | + +--------+ + + + | POC GLUCOSE | Routin | 01/06/2020 | | Results for this | | | e | 11:03 PM | | procedure are in the | | | | PDT | | results section. | + +--------+ + + + | POC GLUCOSE | Routin | 01/06/2020 | | Results for this | | | e | 10:08 PM | | procedure are in the | | | | PDT | | results section. | + +--------+ + + + | POC GLUCOSE | Routin | 01/06/2020 | | Results for this | | | e | 9:07 PM | | procedure are in the | | | | PDT | | results section. | + +--------+ + + + | DRUGS OF ABUSE, | Add-On | 01/06/2020 | | Results for this | | SCREEN, URINE | | 9:05 PM | | procedure are in the | | | | PDT | | results section. | + +--------+ + + + | PHOSPHORUS | STAT | 01/06/2020 | | Results for this | | | | 8:22 PM | | procedure are in the | | | | PDT | | results section. | + +--------+ + + + | MAGNESIUM | STAT | 01/06/2020 | | Results for this | | | | 8:22 PM | | procedure are in the | | | | PDT | | results section. | + +--------+ + + + | BASIC METABOLIC | STAT | 01/06/2020 | | Results for this | | PANEL | | 8:22 PM | | procedure are in the | | | | PDT | | results section. | + +--------+ + + + | POC GLUCOSE | Routin | 01/06/2020 | | Results for this | | | e | 8:12 PM | | procedure are in the | | | | PDT | | results section. | + +--------+ + + + | POC GLUCOSE | Routin | 01/06/2020 | | Results for this | | | e | 7:00 PM | | procedure are in the | | | | PDT | | results section. | + +--------+ + + + | POC GLUCOSE | Routin | 01/06/2020 | | Results for this | | | e | 6:06 PM | | procedure are in the | | | | PDT | | results section. | + +--------+ + + + | POC GLUCOSE | Routin | 01/06/2020 | | Results for this | | | e | 5:00 PM | | procedure are in the | | | | PDT | | results section. | + +--------+ + + + | PHOSPHORUS | STAT | 01/06/2020 | | Results for this | | | | 4:08 PM | | procedure are in the | | | | PDT | | results section. | + +--------+ + + + | MAGNESIUM | STAT | 01/06/2020 | | Results for this | | | | 4:08 PM | | procedure are in the | | | | PDT | | results section. | + +--------+ + + + | BASIC METABOLIC | STAT | 01/06/2020 | | Results for this | | PANEL | | 4:08 PM | | procedure are in the | | | | PDT | | results section. | + +--------+ + + + | POC GLUCOSE | Routin | 01/06/2020 | | Results for this | | | e | 4:06 PM | | procedure are in the | | | | PDT | | results section. | + +--------+ + + + | CT CHEST ABDOMEN | Routin | 01/06/2020 | | Results for this | | PELVIS WO CONTRAST | e | 3:25 PM | | procedure are in the | | | | PDT | | results section. | + +--------+ + + + | POC GLUCOSE | Routin | 01/06/2020 | | Results for this | | | e | 3:03 PM | | procedure are in the | | | | PDT | | results section. | + +--------+ + + + | POC GLUCOSE | Routin | 01/06/2020 | | Results for this | | | e | 2:06 PM | | procedure are in the | | | | PDT | | results section. | + +--------+ + + + | POC GLUCOSE | Routin | 01/06/2020 | | Results for this | | | e | 1:11 PM | | procedure are in the | | | | PDT | | results section. | + +--------+ + + + | PHOSPHORUS | STAT | 01/06/2020 | | Results for this | | | | 12:21 PM | | procedure are in the | | | | PDT | | results section. | + +--------+ + + + | MAGNESIUM | STAT | 01/06/2020 | | Results for this | | | | 12:21 PM | | procedure are in the | | | | PDT | | results section. | + +--------+ + + + | BASIC METABOLIC | STAT | 01/06/2020 | | Results for this | | PANEL | | 12:21 PM | | procedure are in the | | | | PDT | | results section. | + +--------+ + + + | POC GLUCOSE | Routin | 01/06/2020 | | Results for this | | | e | 12:10 PM | | procedure are in the | | | | PDT | | results section. | + +--------+ + + + | POC GLUCOSE | Routin | 01/06/2020 | | Results for this | | | e | 11:03 AM | | procedure are in the | | | | PDT | | results section. | + +--------+ + + + | POC GLUCOSE | Routin | 01/06/2020 | | Results for this | | | e | 10:02 AM | | procedure are in the | | | | PDT | | results section. | + +--------+ + + + | POC GLUCOSE | Routin | 01/06/2020 | | Results for this | | | e | 9:05 AM | | procedure are in the | | | | PDT | | results section. | + +--------+ + + + | RETIC COUNT | Routin | 01/06/2020 | | Results for this | | | e | 8:05 AM | | procedure are in the | | | | PDT | | results section. | + +--------+ + + + | TYPE AND SCREEN | Routin | 01/06/2020 | | Results for this | | | e | 8:04 AM | | procedure are in the | | | | PDT | | results section. | + +--------+ + + + | FOLATE | Routin | 01/06/2020 | | Results for this | | | e | 8:04 AM | | procedure are in the | | | | PDT | | results section. | + +--------+ + + + | VITAMIN B-12 | Routin | 01/06/2020 | | Results for this | | | e | 8:04 AM | | procedure are in the | | | | PDT | | results section. | + +--------+ + + + | FERRITIN | Routin | 01/06/2020 | | Results for this | | | e | 8:04 AM | | procedure are in the | | | | PDT | | results section. | + +--------+ + + + | IRON AND TRANSFERRIN | Routin | 01/06/2020 | | Results for this | | | e | 8:04 AM | | procedure are in the | | | | PDT | | results section. | + +--------+ + + + | PHOSPHORUS | STAT | 01/06/2020 | | Results for this | | | | 8:04 AM | | procedure are in the | | | | PDT | | results section. | + +--------+ + + + | MAGNESIUM | STAT | 01/06/2020 | | Results for this | | | | 8:04 AM | | procedure are in the | | | | PDT | | results section. | + +--------+ + + + | BASIC METABOLIC | STAT | 01/06/2020 | | Results for this | | PANEL | | 8:04 AM | | procedure are in the | | | | PDT | | results section. | + +--------+ + + + | POC GLUCOSE | Routin | 01/06/2020 | | Results for this | | | e | 7:56 AM | | procedure are in the | | | | PDT | | results section. | + +--------+ + + + | POC GLUCOSE | Routin | 01/06/2020 | | Results for this | | | e | 7:03 AM | | procedure are in the | | | | PDT | | results section. | + +--------+ + + + | POC GLUCOSE | Routin | 01/06/2020 | | Results for this | | | e | 6:04 AM | | procedure are in the | | | | PDT | | results section. | + +--------+ + + + | POC GLUCOSE | Routin | 01/06/2020 | | Results for this | | | e | 5:10 AM | | procedure are in the | | | | PDT | | results section. | + +--------+ + + + | CLOSTRIDIOIDES | Routin | 01/06/2020 | | Results for this | | DIFFICILE NAAT | e | 4:29 AM | | procedure are in the | | REFLEX | | PDT | | results section. | + +--------+ + + + | CLOSTRIDIOIDES | Routin | 01/06/2020 | | Results for this | | DIFFICILE NAAT | e | 4:29 AM | | procedure are in the | | REFLEX TO TOX AG | | PDT | | results section. | + +--------+ + + + | STOOL PATHOGENS, | Routin | 01/06/2020 | | Results for this | | NAAT, 6 TO 11 | e | 4:29 AM | | procedure are in the | | TARGETS | | PDT | | results section. | + +--------+ + + + | CREATININE, URINE, | Routin | 01/06/2020 | | Results for this | | RANDOM | e | 4:28 AM | | procedure are in the | | | | PDT | | results section. | + +--------+ + + + | UREA NITROGEN, URINE | Routin | 01/06/2020 | | Results for this | | | e | 4:28 AM | | procedure are in the | | | | PDT | | results section. | + +--------+ + + + | SODIUM, URINE, | Routin | 01/06/2020 | | Results for this | | RANDOM | e | 4:28 AM | | procedure are in the | | | | PDT | | results section. | + +--------+ + + + | URINALYSIS WITH | Routin | 01/06/2020 | | Results for this | | MICROSCOPIC WITH | e | 4:28 AM | | procedure are in the | | CULTURE IF INDICATED | | PDT | | results section. | + +--------+ + + + | CULTURE, URINE | Routin | 01/06/2020 | | Results for this | | | e | 4:28 AM | | procedure are in the | | | | PDT | | results section. | + +--------+ + + + | FECAL LEUKOCYTES | MILE | 01/06/2020 | | Results for this | | | | 4:28 AM | | procedure are in the | | | | PDT | | results section. | + +--------+ + + + | POC GLUCOSE | Routin | 01/06/2020 | | Results for this | | | e | 4:09 AM | | procedure are in the | | | | PDT | | results section. | + +--------+ + + + | CULTURE, BLOOD | STAT | 01/06/2020 | | Results for this | | | | 3:39 AM | | procedure are in the | | | | PDT | | results section. | + +--------+ + + + | ECG 12 LEAD | STAT | 01/06/2020 | | Results for this | | | | 3:31 AM | | procedure are in the | | | | PDT | | results section. | + +--------+ + + + | CULTURE, BLOOD | STAT | 01/06/2020 | | Results for this | | | | 3:29 AM | | procedure are in the | | | | PDT | | results section. | + +--------+ + + + | BETA | STAT | 01/06/2020 | | Results for this | | HYDROXYBUTYRATE, | | 3:28 AM | | procedure are in the | | QUANT | | PDT | | results section. | + +--------+ + + + | PROCALCITONIN, SERUM | STAT | 01/06/2020 | | Results for this | | | | 3:28 AM | | procedure are in the | | | | PDT | | results section. | + +--------+ + + + | LACTIC ACID | STAT | 01/06/2020 | | Results for this | | | | 3:28 AM | | procedure are in the | | | | PDT | | results section. | + +--------+ + + + | TROPONIN I | STAT | 01/06/2020 | | Results for this | | | | 3:28 AM | | procedure are in the | | | | PDT | | results section. | + +--------+ + + + | COMPREHENSIVE | Routin | 01/06/2020 | | Results for this | | METABOLIC PANEL | e | 3:28 AM | | procedure are in the | | | | PDT | | results section. | + +--------+ + + + | CBC WITH | Routin | 01/06/2020 | | Results for this | | DIFFERENTIAL | e | 3:28 AM | | procedure are in the | | | | PDT | | results section. | + +--------+ + + + | PHOSPHORUS | STAT | 01/06/2020 | | Results for this | | | | 3:28 AM | | procedure are in the | | | | PDT | | results section. | + +--------+ + + + | MAGNESIUM | STAT | 01/06/2020 | | Results for this | | | | 3:28 AM | | procedure are in the | | | | PDT | | results section. | + +--------+ + + + | POC GLUCOSE | Routin | 01/06/2020 | | Results for this | | | e | 2:58 AM | | procedure are in the | | | | PDT | | results section. | + +--------+ + + + | CULTURE, MRSA | Routin | 01/06/2020 | | Results for this | | | e | 2:55 AM | | procedure are in the | | | | PDT | | results section. | + +--------+ + + + | BLOOD GAS, VENOUS | STAT | 01/06/2020 | | Results for this | | | | 2:50 AM | | procedure are in the | | | | PDT | | results section. | + +--------+ + + + | ECG - EXTERNAL SCAN | | 01/06/2020 | | Results for this | | | | 12:00 AM | | procedure are in the | | | | PDT | | results section. | + +--------+ + + + | LABS - EXTERNAL SCAN | | 01/05/2020 | | Results for this [...] + | IMAGING REPORT - | | 01/05/2020 | | Results for this | | EXTERNAL SCAN | | 12:00 AM | | procedure are in the | | | | PDT | | results section. | + +--------+ + + + from Last 3 Months Results POC Glucose (03/14/2020 12:21 PM PDT)Only the most recent of 102 results within the time pe riod is included. + +---------+ + + + | Component | Value | Ref Range | Performed | Pathologist | | | | | At | Signature | + +---------+ + + + | Glucose, | 200 (H) | 70 - 109 mg/dL | [...] + | [facility] | [address] | [place] | [phone] | | [facility] | | [address] | | | - LABORATORY | | | | + + + + + Extra Lavender Top Tube (03/14/2020 3:32 AM PDT)Only the most recent of 3 results within t time period is included. + +-------+ + + + | Component [...] ST. | [address] | [place] | [phone] | | [facility] | | [address] | | | - LABORATORY | | | | + + + + + Renal Function Panel (03/14/2020 3:32 AM PDT)Only the most recent of 12 results within the time period is included. + + + + + [...] + + + + | Glucose | 85 | 60 - 106 mg/dL | [facility] | | | | | | [facility] | | | | | MEDICAL | | | | | | CENTER - | | | | | | LABORATORY | | + + + + + + | BUN | 63 (H) | 9 - 23 mg/dL | [facility] | | | | | | [facility] | | | | | | MEDICAL | | | | | | CENTER - | | | | | | LABORATORY | | + + + + + + | Creatinine | 4.24 (H) | 0.70 - 1.30 | [facility] | | | | | mg/dL | [...] mL/min/1.73m2 | [facility] | | | [place] | RATE,ESTIMATED | | MEDICAL | | | | mL/min/1.52o7Rkhs than | | CENTER - | | [...] + + + + | Phosphorus | 6.2 (H) | 2.4 - 5.1 mg/dL | [facility] | | | | | | [facility] | | | | | | MEDICAL | | | | | | CENTER - | | | | | | LABORATORY | | + + + + + + | BUN/Creatin | 14.9 | | [facility] | | | ine [...] + | [facility] | [address] | [place] | [phone] | | [facility] | | [address] | | | - LABORATORY | | | | + + + + + Basic Metabolic Panel (03/11/2020 4:07 PM PDT)Only the most recent of 13 results within e time period is included. + + + + + [...] + + | K | 4.8 | 3.4 - 5.1 | [facility] | | | | | mmol/L | [facility] | | | | | | MEDICAL | | | | | | CENTER - | | | | | | LABORATORY | | + + + + + + | Cl | 109 (H) | 98 - 107 mmol/L | [...] + + + + | Glucose | 299 (H) | 60 - 106 mg/dL | [facility] | | | | | | [facility] | | | | | | MEDICAL | | | | | | CENTER - | | | | | | LABORATORY | | + + + + + + | BUN | 62 (H) | 9 - 23 mg/dL | [facility] | | | | | | [facility] | | | | | | MEDICAL | | | | | | CENTER - | | | | | | LABORATORY | | + + + + + + | Creatinine | 4.32 (H) | 0.70 - 1.30 | [facility] | | | | | mg/dL | [facility] | | | | | | MEDICAL | | | | | | CENTER - | | | | | | LABORATORY | | + + + + + + | eGFR if not | 16 (L)Comment: | >=60 | [facility] | | | | GLOMERULAR FILTRATION | mL/min/1.73m2 | [facility] | | | [place] | RATE,ESTIMATED | | MEDICAL | | | | mL/min/1.10o8Njau than | | CENTER - | | [...] + + + + | BUN/Creatin | 14.4 | | [facility] | | | ine Ratio | | | [facility] | | | | | | MEDICAL | | | | | | CENTER - | | | | | | LABORATORY | | + + + + + + + + | Specimen | + + | Blood - Right upper | | arm structure (body | | structure) | + + + + + + + | Performing | Address | City/State/Zipcode | Phone Number | | Organization | | | | + + + + + | [facility] | [address] | [place] | [phone] | | [facility] | | [address] | | | - LABORATORY | | | | + + + + + Clostridioides difficile NAAT Reflex (03/11/2020 3:59 PM PDT)Only the most recent of 3 res ults within the time period is included. + + + + + + | Component | Value | Ref Range | Performed | Pathologist | | | | | At | Signature | + + + + + + | C. | NegativeComment: No | Negative | [facility] | | | difficile, | Toxigenic C. difficile | | [facility] | | | Interp | detected. Consider other | | MEDICAL | | | | causes of Diarrhea. | | CENTER - | | | | Repeat testing should | | LABORATORY | | | | not be performed within | | | | | | 7 days. | | | | + + + + + + | C. | Negative | | [facility] | | | difficile, [...] + | [facility] | [address] | [place] | [phone] | | [facility] | | [address] | | | - LABORATORY | | | | + + + + + CBC with Differential (03/11/2020 4:07 AM PDT)Only the most recent of 14 results within time period is included. + + + + + + | Component | Value | Ref Range | Performed | Pathologist | | | | | At | Signature | + + + + + + | WBC | 13.3 (H) | 4.0 - 11.0 K/uL | [facility] | | | | | | [facility] | | | | | | MEDICAL | | | | | | CENTER - | | | | | | LABORATORY | | + + + + + + | RBC | 3.13 (L) | 4.30 - 5.70 | [facility] | | | | | M/uL | [facility] | | | | | | MEDICAL | | | | | | CENTER - | | | | | | LABORATORY | | + + + + + + | Hemoglobin | 9.2 (L) | 13.5 - 18.0 | [facility] | | | | | g/dL | [facility] | | | | | | MEDICAL | | | | | | CENTER - | | | | | | LABORATORY | | + + + + + + | Hematocrit | 29.2 (L) | 40.0 - 51.0 % | [facility] | | | | | | [facility] | | | | | | MEDICAL | | | | | | CENTER - | | | | | | LABORATORY | | + + + + + + | MCV | 93.3 | 83.0 - 101.0 fL | [facility] [...] + + + + | MCHC | 31.5 (L) | 32.0 - 36.0 | [facility] [...] + + + + | Platelet | 256 | 140 - 440 K/uL | [facility] | | | Count | | | [facility] | | | | | | MEDICAL | | | | | | CENTER - | | | | | | LABORATORY | | + + + + + + | MPV | 12.9 (H) | 6.5 - 12.4 fL | [facility] | | | | | | [facility] | | | | | | MEDICAL | | | | | | CENTER - | | | | | | LABORATORY | | + + + + + + | % | 73.4 | 45.0 - 82.0 % | [facility] | | | Neutrophils | | | [facility] | | | | | | MEDICAL | | | | | | CENTER - | | | | | | LABORATORY | | + + + + + + | % | 18.1 (L) | 20.0 - 45.0 % | [facility] | | | Lymphocytes | | | [facility] | | | | | | MEDICAL | | | | | | CENTER - | | | | | | LABORATORY | | + + + + + + | % Monocytes | 5.9 | 4.0 - 12.0 % | [facility] | | | | | | [facility] | | | | | | MEDICAL | | | | | | CENTER - | | | | | | LABORATORY | | + + + + + + | % | 1.4 | 0.0 - 5.0 % | [facility] | | | Eosinophils | | | [facility] | | | | | | MEDICAL | | | | | | CENTER - | | | | | | LABORATORY | | + + + + + + | % Basophils | 0.4 | 0.0 - 1.0 % | [facility] | | | | | | [facility] | | | | | | MEDICAL | | | | | | CENTER - | | | | | | LABORATORY | | + + + + + + | % Immature | 0.8 (H)Comment: | 0.0 - 0.4 % | [...] + + + + | Absolute | 9.77 (H) | 1.80 - 8.50 | [facility] | | | Neutrophils | | K/uL | [facility] | | | | | | MEDICAL | | | | | | CENTER - | | | | | | LABORATORY | | + + + + + + | Absolute | 2.41 | 0.60 - 3.20 | [facility] | | | Lymphocytes | | K/uL | [facility] | | | | | | MEDICAL | | | | | | CENTER - | | | | | | LABORATORY | | + + + + + + | Absolute | 0.78 | 0.00 - 1.00 | [facility] | | | Monocytes | | K/uL | [facility] | | | | | | MEDICAL | | | | | | CENTER - | | | | | | LABORATORY | | + + + + + + | Absolute | 0.18 | 0.00 - 0.40 | [facility] | | | Eosinophils | | K/uL | [facility] | | | | | | MEDICAL | | | | | | CENTER - | | | | | | LABORATORY | | + + + + + + | Absolute | 0.05 | 0.00 - 0.10 | [facility] | | | Basophils | | K/uL | [facility] | | | | | | MEDICAL | | | | | | CENTER - | | | | | | LABORATORY | | + + + + + + | Absolute | 0.11 (H) | 0.00 - 0.03 | [facility] [...] [facility] | [address] | [place], [place] | [phone] | | [facility] | | [address] | | | - LABORATORY | | | | + + + + + Procalcitonin (03/11/2020 4:06 AM PDT)Only the most recent of 6 results within the time mamta schilling is included. + + + + + + | Component | Value | Ref Range | Performed | Pathologist | | | | | At | Signature | + + + + + + | Procalciton | 36.20 ()Comment: | <=0.50 ng/mL | [facility] | | | in | Critical Result called | | [facility] | | | | to and read back by | | MEDICAL | | | | Annie Fleming RN | | CENTER - | | | | on 03/11/2020 at 5:08 AM | | LABORATORY | | | | PDT by Stefano Fofana. | | | | + + + + + + | Comment | Comment: < 0.50 | | [facility] | | | | ng/mL:Procalcitonin | | [facility] | | | | levels below 0.50 ng/mL | | MEDICAL | | | | on the first day of | | CENTER - | | | | admission represents a | | LABORATORY | | | | low risk for progression | | | | | | to severe sepsis and/or | | | | | | septic shock, however | | | | | | these do not exclude an | | | | | | infection, because | | | | | | localized infections | | | | | | (without systemic signs) | | | | | | may also be associated | | | | | | with such low levels. | | | | | | > 2.00 | | | | | | ng/mL:Procalcitonin | | | | | | levels above 2.00 ng/mL | | | | | | on the first day of | | | | | | admission represents a | | | | | | high risk for | | | | | | progression to severe | | | | | | sepsis and/or septic | | | | | | shock. If the | | | | | | procalcitonin | | | | | | measurement is performed | | | | | | shortly after the | | | | | | systemic infection | | | | | | process has started | | | | | | (usually less than 6 | | | | | | hours), these values may | | | | | | still be low. As | | | | | | various non-infectious | | | | | | conditions are known to | | | | | | induce procalcitonin as | | | | | | well, procalcitonin | | | | | | levels between 0.50 | | | | | | ng/mL and 2.00 ng/mL | | | | | | should be reviewed | | | | | | carefully to take into | | | | | | account the specific | | | | | | clinical background and | | | | | | condition(s) of the | | | | | | individual patient. | | | | + + + + + + + + | Specimen | + + | Blood | + + + + + + + | Performing | Address | City/State/Zipcode | Phone Number | | Organization | | | | + + + + + | [facility] | [address] | [place] | [phone] | | [facility] | | [address] | | | - LABORATORY | | | | + + + + + Phosphorus (03/11/2020 4:06 AM PDT)Only the most recent of 9 results within the time pilar stoddard is included. + + + + + + | Component | Value | Ref Range | Performed | Pathologist | | | | | At | Signature | + + + + + + | Phosphorus | 8.0 ()Comment: | 2.4 - 5.1 mg/dL | [facility] | | | | Consistent with previous | | [facility] | | | | results. | | [...] [facility]. | [address] | [place], [place] | [phone] | | [facility] | | [address] | | | - LABORATORY | | | | + + + + + B Type Natriuretic Peptide (03/11/2020 4:06 AM PDT)Only the most recent of 7 results withi n the time period is included. + + + + + + | Component | Value | Ref Range | Performed | Pathologist | | | | | At | Signature | + + + + + + | BNP | 246 (H)Comment: New | <100 pg/mL | [facility] | | | | method in use as of | | [facility] | | | | November 22, 2018. [...] + | [facility] | [address] | [place] | [phone] | | [facility] | | [address] | | | - LABORATORY | | | | + + + + + Magnesium (03/11/2020 4:06 AM PDT)Only the most recent of 13 results within the time pilar stoddard is included. + +-------+ + + + | Component | Value | Ref Range | Performed | Pathologist | | | | | At | Signature | + +-------+ + + + | Magnesium | 1.8 | 1.6 - 2.6 mg/dL | [facility] | | | | | [...] + | [facility] | [address] | [place] | [phone] | | [facility] | | [address] | | | - LABORATORY | | | | + + + + + Comprehensive Metabolic Panel (03/11/2020 4:06 AM PDT)Only the most recent of 4 results wi thin the time period is included. + + + + + [...] + + | CO2 | 24 | 20 - 31 mmol/L | [facility] | | | | | | [facility] | | | | | | MEDICAL | | | | | | CENTER - | | | | | | LABORATORY | | + + + + + + | Anion Gap | 6 | 3 - 16 mmol/L | [facility] | | | | | | [facility] | | | | | | MEDICAL | | | | | | CENTER - | | | | | | LABORATORY | | + + + + + + | Glucose | 143 (H) | 60 - 106 mg/dL | [facility] | | | | | | [facility] | | | | | | MEDICAL | | | | | | CENTER - | | | | | | LABORATORY | | + + + + + + | BUN | 65 (H) | 9 - 23 mg/dL | [facility] | | | | | | [facility] | | | | | | MEDICAL | | | | | | CENTER - | | | | | | LABORATORY | | + + + + + + | Creatinine | 4.39 (H) | 0.70 - 1.30 | [facility] | | | | | mg/dL | [facility] | | | | | | MEDICAL | | | | | | CENTER - | | | | | | LABORATORY | | + + + + + + | eGFR if not | 16 (L)Comment: | >=60 | [facility] | | | | GLOMERULAR FILTRATION | mL/min/1.73m2 | [facility] | | | [place] | RATE,ESTIMATED | | MEDICAL | | | | mL/min/1.69t6Noxz than | | CENTER - | | [...] 7.3 (L) | 8.7 - 10.4 | [facility] | | | | | mg/dL | [facility] | | | | | | MEDICAL [...] + + + + | Total | 5.2 (L) | 5.7 - 8.2 g/dL | [facility] | | | Protein | | | [facility] | | | | | | MEDICAL | | | | | | CENTER - | | | | | | LABORATORY | | + + + + + + | AST | 29 | 0 - 34 U/L | [facility] | | | | | | [facility] | | | | | | MEDICAL | | | | | | CENTER - | | | | | | LABORATORY | | + + + + + + | ALT | 12 | 10 - 49 U/L | [facility] | | | | | | [facility] | | | | | | MEDICAL | | | | | | CENTER - | | | | | | LABORATORY | | + + + + + + | Alkaline | 118 (H) | 46 - 116 U/L | [facility] | | | Phosphatase | | | [facility] | | | | | | MEDICAL | | | | | | CENTER - | | | | | | LABORATORY | | + + + + + + | Globulin | 3.0 | 2.1 - 3.8 g/dL | [facility] | | | | | | [facility] | | | | | | MEDICAL | | | | | | CENTER - | | | | | | LABORATORY | | + + + + + + | Albumin/Maria Del Carmen | 0.7 (L) | 0.8 - 1.9 | [facility] | | | bulin Ratio | | | [facility] | | | | | | MEDICAL | | | | | | CENTER - | | | | | | LABORATORY | | + + + + + + | BUN/Creatin | 14.8 | | [facility] | | | ine [...] + | [facility] | [address] | [place] | [phone] | | [facility] | | [address] | | | - LABORATORY | | | | + + + + + Lactic Acid (03/10/2020 8:41 AM PDT)Only the most recent of 4 results within the time alexis od is included. + +-------+ + + + | Component | Value | Ref Range | Performed | Pathologist | | | | | At | Signature | + +-------+ + + + | Lactate | 1.1 | 0.5 - 2.2 | [facility] | | | | | mmol/L | [facility] | | | | [...] [facility] | [address] | [place], [place] | [phone] | | [facility] | | [address] | | | - LABORATORY | | | | + + + + + Culture, Blood (03/10/2020 7:33 AM PDT)Only the most recent of 6 results within the time kaylee bender is included. + + + + + + | Component | Value | Ref Range | Performed | Pathologist | | | | | At | Signature | + + + + + + | Culture | No growth after 5 days | | [facility] | | | | incubation. | | [facility] | | | | | | MEDICAL | | | | | | CENTER - | | | | | | LABORATORY | | + + + + + + + + | Specimen | + + | Blood - Peripheral | | blood specimen | | (specimen) | + + + + + + + | Performing | Address | City/State/Zipcode | Phone Number | | Organization | | | | + + + + + | [facility] | [address] | [place] | [phone] | | [facility] | | [address] | | | - LABORATORY | | | | + + + + + XR Chest AP Portable (03/10/2020 6:02 AM PDT)Only the most recent of 3 results within the time period is included. + + | Specimen | + + | | + + + + + | Impressions | Performed At | + + + | Left lung base atelectasis. Dictated and Signed by: Neri Partida [facility] | | MD Av Electronically signed: 03/10/2020 8:43 AM | | + + + + + + | Narrative | Performed At | + + + | EXAM: XR CHEST AP PORTABLE dated 03/10/2020 5:42 AM HISTORY: AMS | [facility] | | Comparison: 02/19/2020 TECHNIQUE: A single portable view of the | | | chest. FINDINGS: The lungs are symmetrically aerated. | | | Interval resolution of the right lower lobe parenchymal opacities. | | | Left lung base probably atelectasis. There are no large pleural | | | effusions. There is no pneumothorax. The cardiac and mediastinal | | | contours are not enlarged. No acute osseous abnormalities. | | + + + + + | Procedure Note | + + | Cheng, Rad Results In - 03/10/2020 8:46 AM PDT EXAM: XR CHEST AP PORTABLE dated | | 03/10/2020 5:42 AMHISTORY: AMSComparison: 02/19/2020TECHNIQUE: A single portable view of | | the chest.FINDINGS:The lungs are symmetrically aerated. Interval resolution of the | | right lowerlobe parenchymal opacities. Left lung base probably atelectasis. There are | | nolarge pleural effusions. There is no pneumothorax. The cardiac and | | mediastinalcontours are not enlarged. No acute osseous abnormalities. IMPRESSION: Left | | lung base atelectasis.Dictated and Signed by: Neri Ley MD Electronically | | signed: 03/10/2020 8:43 AM | |FINDINGS: | | | |The lungs are symmetrically aerated. Interval resolution of the right lower | |lobe parenchymal opacities. Left lung base probably atelectasis. There are no | |large pleural effusions. There is no pneumothorax. The cardiac and mediastinal | |contours are not enlarged. No acute osseous abnormalities. | | | |IMPRESSION: | | | |Left lung base atelectasis. | | | |Dictated and Signed by: Neri Ley MD | | Electronically signed: 03/10/2020 8:43 AM | + + + +---------+ + + | Performing | Address | City/State/Zipcode | Phone Number | | Organization | | | | + +---------+ + + | [facility] | | | | + +---------+ + + Beta Hydroxybutyrate, Quant (03/10/2020 4:12 AM PDT)Only the most recent of 3 results with in the time period is included. + + + + + + | Component | Value | Ref Range | Performed | Pathologist | | | | | At | Signature | + + + + + + | Beta | 0.56 (H) | 0.02 - 0.27 | [facility] | | | Hydroxybuty | | mmol/L | [facility] | | | rate | | [...] [address] | [place] | [phone] | | [facility] | | [address] | | | - LABORATORY | | | | + + + + + EEG (03/09/2020 6:29 PM PDT) + + + | Narrative | Performed At | + + + | Erlinda Martinez MD 03/09/2020 6:34 PM EEG REPORT | | | GENERAL DESCRIPTION: This was a 19 channel awake EEG recording with | | | International 10/20 electrode placements. The background activity | | | consisted of diffuse theta slowing 6-7Hz. Significant amount of EMG | | | artifact was present throughout the recording. ACTIVATION & | | | SLEEP: No change of the background activity with eye opening was | | | noted. Photic stimulation produced no significant changes to the | | | background activity. Drowsy or sleep state was not captured. | | | OTHER DATA: No electrographic seizures were recorded. CLINICAL | | | IMPRESSION: This EEG is abnormal. Mild diffuse slowing was noted | | | suggestive of non specific encephalopathy of toxic, metabolic, | | | infectious or degenerative etiology. No electrographic seizure were | | | noted. This does not rule out a seizure disorder. Clinical | | | correlation is recommended. Dr Erlinda Martinez | | + + + West Nile Virus Ab, IgG, IgM, CSF (03/09/2020 3:38 PM PDT) + + + + + + | Component | Value | Ref Range | Performed | Pathologist | | | | | At | Signature | + + + + + + | West Nile | NegativeComment: No | Negative | [facility] | | | IgG, CSF | detectable West Nile | | LAB [facility] | | | | Virus IgG Antibody. If a | | - [facility] | | | | recent infection | | | | | | issuspected, another | | | | | | specimen should be | | | | | | submitted for testing | | | | | | within7-14 days. | | | | + + + + + + | West Nile | NegativeComment: No | Negative | [facility] | | | IgM, CSF | detectable [place] | | LAB [facility] | | | | Virus IgM Antibody. If a | | - [facility] | | | | recent infection | | | | | | issuspected, another | | | | | | specimen should be | | | | | | submitted for testing | | | | | | within7-14 days. | | | | + + + + + + + + | Specimen | + + | Cerebrospinal Fluid | | - Cerebrospinal | | fluid sample | | (specimen) | + + + + + | Narrative | Performed At | + + + | Performed at: 01 - [facility] [address] [place] [address], | REFERENCE LAB | | [place], [place] [id number] Tosser: Sarabjit Love MD, Phone: | [facility] | | [phone] | | + + + + + + + + | Performing | Address | City/State/Zipcode | Phone Number | | Organization | | | | + + + + + | REFERENCE LAB | [address] | [place], [place] | [phone] | | [facility] | [address] [facility] | [address] | | + + + + + Culture, CSF, Smear (03/09/2020 3:20 PM PDT) + + + + + + | Component | Value | Ref Range | Performed | Pathologist | | | | | At | Signature | + + + + + + | Culture | No Growth | | [facility] | | | | | | [facility] | | | | | | MEDICAL | | | | | | CENTER - | | | | | | LABORATORY | | + + + + + + | Gram Stain | No organisms seen | | [facility] | | | Result | | | [facility] | | | | | | MEDICAL | | | | | | CENTER - | | | | | | LABORATORY | | + + + + + + | Gram Stain | No white blood cells | | [facility] | | | Result | (PMNs) seen | | [facility] | | | | | | MEDICAL | | | | | | CENTER - | | | | | | LABORATORY | | + + + + + + + + | Specimen | + + | Cerebrospinal Fluid | | - Cerebrospinal | | fluid sample | | (specimen) | + + + + + + + | Performing | Address | City/State/Zipcode | Phone Number | | Organization | | | | + + + + + | [facility] | [address] | [place] | [phone] | | [facility] | | [address] | | | - LABORATORY | | | | + + + + + Herpes Simplex Virus, NAAT, CSF (03/09/2020 3:19 PM PDT) + + + + + + | Component | Value | Ref Range | Performed | Pathologist | | | | | At | Signature | + + + + + + | HSV 1, DNA | Negative | Negative | [facility]FER[facility] | | | | | | LAB [facility] | | | | | | - [facility] | | + + + + + + | HSV 2 DNA | NegativeComment: This | Negative | [facility] | | | | test was developed and | | LAB [facility] | | | | its performance | | - [facility] | | | | characteristics | | | | | | determinedby [facility] | | | | | | Laboratories. It has not | | | | | | been cleared or | | | | | | approved by theU.S. Food | | | | | | and Drug | | | | | | Administration. The FDA | | | | | | has determined that | | | | | | suchclearance or | | | | | | approval is not | | | | | | necessary. This test is | | | | | | used for | | | | | | clinicalpurposes. It | | | | | | should not be regarded | | | | | | as investigational or | | | | | | research. | | | | + + + + + + + + | Specimen | + + | Cerebrospinal Fluid | | - Cerebrospinal | | fluid sample | | (specimen) | + + + + + | Narrative | Performed At | + + + | Performed at: [facility] [address], | REFERENCE LAB | | [place] [phone] Tosser: Sarabjit Love MD, Phone: | [facility] | | [phone] | | + + + + + + + + | Performing | Address | City/State/Zipcode | Phone Number | | Organization | | | | + + + + + | REFERENCE LAB | [address] | [place], [place] | [phone] | | [facility] | [place] | [address] | | + + + + + Varicella Zoster, NAAT (03/09/2020 3:19 PM PDT) + + + + + + | Component | Value | Ref Range | Performed | Pathologist | | | | | At | Signature | + + + + + + | Varicella | NegativeComment: No | Negative | REFERENCE | | | zoster | Varicella Zoster Virus | | LAB [facility] | | | virus | DNA detected.This test | | - BKR | | | | was developed and its | | | | | | performance | | | | | | characteristics | | | | | | determinedby [facility]. | | | | | | It has not been | | | | | | cleared or approved by | | | | | | the Food and | | | | | | DrugAdministration. | | | | | | The FDA has determined | | | | | | that such clearance | | | | | | orapproval is not | | | | | | necessary. | | | | + + + + + + + + | Specimen | + + | Cerebrospinal Fluid | | - Cerebrospinal | | fluid sample | | (specimen) | + + + + + | Narrative | Performed At | + + + | Performed at: 01 - [address], | REFERENCE LAB | | [place], [place] [id number] Tosser: Sarabjit Love MD, Phone: | [facility] | | [phone] | | + + + + + + + + | Performing | Address | City/State/Zipcode | Phone Number | | Organization | | | | + + + + + | REFERENCE LAB | [address] | [place], [place] | [phone] | | [facility] | [address] [facility] | [address] | | + + + + + Cell Count with Differential, CSF (03/09/2020 3:19 PM PDT) + + + + + + | Component | Value | Ref Range | Performed | Pathologist | | | | | At | Signature | + + + + + + | CSF Tube | 3 | | [facility] | | | Number | | | [facility] | | | | | | [facility]ICAL | | | | | | CENTER - | | | | | | LABORATORY | | + + + + + + | CSF Color | Colorless | Colorless | [facility] | | | | | | [facility] | | | | | | [facility] | | | | | | CENTER - | | | | | | LABORATORY | | + + + + + + | CSF | Colorless | | [facility] | | | Supernatant | | | [facility] | | | Color | | | MEDICAL | | | | | | CENTER - | | | | | | LABORATORY | | + + + + + + | CSF | Clear | | [facility] | | | Appearance | | | [facility] | | | | | | MEDICAL | | | | | | CENTER - | | | | | | LABORATORY | | + + + + + + | CSF | <3 | <=5 cells/uL | [facility] | | | Nucleated | | | [facility] | | | Cells | | | MEDICAL | | | | | | CENTER - | | | | | | LABORATORY | | + + + + + + | CSF Red | <2000 | Reference Range | [facility] | | | Blood Cells | | Not | [facility] | | | | | Established | MEDICAL | | | | | cells/uL | CENTER - | | | | | | LABORATORY | | + + + + + + | RBC CSF | 2 | cells/uL | [facility] | | | Manual | | | [facility] | | | | | [facility] | | | | | | [facility] - | | | | | | LABORATORY | | + + + + + + | CSF | 0.0 | 0 - 5 % | [facility] | | | Polynuclear | | | [facility] | | | % | | | MEDICAL | | | | | | CENTER - | | | | | | LABORATORY | | + + + + + + | CSF | 100.0 | 70 - 100 % | [facility] | | | Mononuclear | | | [facility] | | | % | | | MEDICAL | | | | | | CENTER - | | | | | | LABORATORY | | + + + + + + + + | Specimen | + + | Cerebrospinal Fluid | | - Cerebrospinal | | fluid sample | | (specimen) | + + + + + + + | Performing | Address | City/State/Zipcode | Phone Number | | Organization | | | | + + + + + | [facility] | [address] | [place] | [phone] | | [facility] | | [address] | | | - LABORATORY | | | | + + + + + Protein, CSF (03/09/2020 3:19 PM PDT) + +-------+ + + + | Component | Value | Ref Range | Performed | Pathologist | | | | | At | Signature | + +-------+ + + + | CSF Tube | 1 | | [facility] | | | Number | | | [facility] | | | | | | MEDICAL | | | | | | CENTER - | | | | | | LABORATORY | | + +-------+ + + + | Protein, | 25 | 8 - 32 mg/dL | [facility] | | | CSF | | | [facility] | | | | | | MEDICAL | | | | | | CENTER - | | | | | | LABORATORY | | + +-------+ + + + + + | Specimen | + + | Cerebrospinal Fluid | | - Cerebrospinal | | fluid sample | | (specimen) | + + + + + + + | Performing | Address | City/State/Zipcode | Phone Number | | Organization | | | | + + + + + | [facility] | [address] | [place] | [phone] | | [facility] | | [address] | | | - LABORATORY | | | | + + + + + Glucose, CSF (03/09/2020 3:19 PM PDT) + +--------+ + + + | Component | Value | Ref Range | Performed | Pathologist | | | | | At | Signature | + +--------+ + + + | CSF Tube | 1 | | [facility] | | | Number | | | [facility] | | | | | | MEDICAL | | | | | | CENTER - | | | | | | LABORATORY | | + +--------+ + + + | GLUCOSE CSF | 87 (H) | >40 - 70 mg/dL | [facility] | | | | | | [facility] | | | | | | MEDICAL | | | | | | CENTER - | | | | | | LABORATORY | | + +--------+ + + + + + | Specimen | + + | Cerebrospinal Fluid | | - Cerebrospinal | | fluid sample | | (specimen) | + + + + + + + | Performing | Address | City/State/Zipcode | Phone Number | | Organization | | | | + + + + + | [facility] | [address] | [place] | [phone] | | [facility] | | [address] | | | - LABORATORY | | | | + + + + + Culture, MRSA (03/09/2020 2:57 PM PDT)Only the most recent of 2 results within the time mamta schilling is included. + + + + + + | Component | Value | Ref Range | Performed | Pathologist | | | | | At | Signature | + + + + + + | Culture | Negative for MRSA by | | [facility] | | | | chromogenic agar method. | | [facility] | | | | | | MEDICAL | | | | | | CENTER - | | | | | | LABORATORY | | + + + + + + + + | Specimen | + + | Tissue - Both | | anterior nares (body | | structure) | + + + + + + + | Performing | Address | City/State/Zipcode | Phone Number | | Organization | | | | + + + + + | [facility] | [address] | [place] | [phone] | | [facility] | | [address] | | | - LABORATORY | | | | + + + + + Extra Gold Top Tube (03/09/2020 6:36 AM PDT) + +-------+ + + + | Component | Value | Ref Range | Performed | Pathologist | | | | | At | Signature | + +-------+ + + + | Extra Gold | Done | | [facility] | | | Top Tube | | | [facility] | | [...] + | [facility] | [address] | [place] | [phone] | | [facility] | | [address] | | | - LABORATORY | | | | + + + + + PTT (03/09/2020 6:31 AM PDT) + +-------+ + + + | Component | Value | Ref Range | Performed | Pathologist | | | | | At | Signature | + +-------+ + + + | aPTT | 34 | 22 - 36 seconds | [facility] | | | | | [...] [address] | [place] | [phone] | | [facility] | | [address] | | | - LABORATORY | | | | + + + + + Protime INR (03/09/2020 6:31 AM PDT)Only the most recent of 2 results within the time alexis od is included. + + + + + + | Component | Value | Ref Range | Performed | Pathologist | | | | | At | Signature | + + + + + + | Prothrombin | 14.7 (H) | 11.3 - 13.9 | [facility] | | | Time | | seconds | [facility] | | | | | | MEDICAL | | | | | | CENTER - | | | | | | LABORATORY | | + + + + + + | INR | 1.1Comment: Usual Oral | 0.9 - 1.1 | [facility] | | | | Anticoagulation Range: | | [facility] | | | | 2.0 - 3.0High | | MEDICAL | | | | Level Oral | | CENTER - | [...] + | [facility] | [address] | [place], [place] | [phone] | | [facility] | | [address] | | | - LABORATORY | | | | + + + + + CT Chest Abdomen Pelvis wo Contrast (03/09/2020 4:59 AM PDT)Only the most recent of 2 resu lts within the time period is included. + + | Specimen | + + | | + + + + + | Narrative | Performed At | + + + | CT CHEST ABDOMEN AND PELVIS WITHOUT CONTRAST CLINICAL | [facility] | | INFORMATION: Found down. COMPARISON: XR CHEST AP PORTABLE | | | (02/19/2020); XR CHEST AP PORTABLE (02/16/2020); CT CHEST ABDOMEN | | | PELVIS WO CONTRAST (01/06/2020); PROCEDURE: Axial images through | | | the chest, abdomen and pelvis. Multiplanar reconstructions. At | | | least one of the following CT dose optimization techniques were used: | | | Automated exposure control; Adjustment of mA and/or kV according to | | | patient size; Use of iterative reconstruction technique. FINDINGS: | | | Small bilateral pleural effusions with adjacent atelectasis. Trachea | | | and central bronchi are patent. No evidence of pneumothorax. The | | | heart is normal in size. Extensive anasarca throughout all visualized | | | soft tissues. No acute osseous findings. No evidence for | | | lymphadenopathy. Abnormality involving the liver or pancreas. No | | | suspicious splenic or adrenal gland pathology. Dependent calcified | | | gallstones in the gallbladder. Punctate nonobstructive renal calculi | | | are seen bilaterally. No evidence of hydronephrosis or hydroureter. | | | Extensive anasarca throughout the abdominal wall soft tissues. | | | Calcifications in the anterior abdominal wall likely related to remote | | | injection granulomas. Urinary bladder contains air and is | | | decompressed by Camarena catheter. Prostate gland is not well | | | visualized. Mild bilateral hip osteoarthritis. No acute osseous | | | abnormality identified. IMPRESSION- 1. Minimal dependent | | | atelectasis in both lower lobes. No acute airspace disease. Small | | | bilateral pleural effusions. No pneumothorax. 2. Small amount of | | | pelvic and right perihepatic ascites. 3. Cholelithiasis without | | | gallbladder wall thickening demonstrated. No definite biliary | | | dilation. 4. Stable bilateral nonobstructive nephrolithiasis, left | | | greater than right. Camarena catheter balloon within the bladder. 5. | | | No bowel dilation. 6. Diffuse anasarca throughout the chest, abdomen, | | | and pelvic soft tissues compatible with extensive fluid overload. | | | A preliminary report was sent without significant discrepancy. | | | Dictated and Signed by: Abdirizak Dorantes MD Electronically signed: | | | 03/09/2020 3:00 PM | | + + + + + | Procedure Note | + + | Cheng, Rad Results In - 03/09/2020 3:[address] CHEST ABDOMEN AND PELVIS WITHOUT | | CONTRASTCLINICAL INFORMATION:Found down.COMPARISON:XR CHEST AP PORTABLE (02/19/2020); XR | | CHEST AP PORTABLE (02/16/2020); CTCHEST ABDOMEN PELVIS WO CONTRAST | | (01/06/2020);PROCEDURE:Axial images through the chest, abdomen and pelvis. | | Multiplanarreconstructions.At least one of the following CT dose optimization techniques | | wereused: Automated exposure control; Adjustment of mA and/or kV accordingto patient | | size; Use of iterative reconstruction technique.FINDINGS:Small bilateral pleural | | effusions with adjacent atelectasis. Trachea and centralbronchi are patent. No evidence | | of pneumothorax. The heart is normal in size.Extensive anasarca throughout all | | visualized soft tissues. No acute osseousfindings. No evidence for | | lymphadenopathy.Abnormality involving the liver or pancreas. No suspicious splenic or | | adrenalgland pathology. Dependent calcified gallstones in the gallbladder. | | Punctatenonobstructive renal calculi are seen bilaterally. No evidence of | | hydronephrosisor hydroureter. Extensive anasarca throughout the abdominal wall soft | | tissues.Calcifications in the anterior abdominal wall likely related to remote | | injectiongranulomas. Urinary bladder contains air and is decompressed by Camarena | | catheter.Prostate gland is not well visualized.Mild bilateral hip osteoarthritis. No | | acute osseous abnormality identified.IMPRESSION- 1. Minimal dependent atelectasis in | | both lower lobes. No acute airspacedisease. Small bilateral pleural effusions. No | | pneumothorax.2. Small amount of pelvic and right perihepatic ascites.3. Cholelithiasis | | without gallbladder wall thickening demonstrated. No definitebiliary dilation.4. Stable | | bilateral nonobstructive nephrolithiasis, left greater than right. Camarena catheter | | balloon within the bladder.5. No bowel dilation.6. Diffuse anasarca throughout the | | chest, abdomen, and pelvic soft tissuescompatible with extensive fluid overload.A | | preliminary report was sent without significant discrepancy.Dictated and Signed by: Abdirizak | | MD Jose E Electronically signed: 03/09/2020 3:00 PM | |or hydroureter. Extensive anasarca throughout the abdominal wall soft tissues. | |Calcifications in the anterior abdominal wall likely related to remote injection | |granulomas. Urinary bladder contains air and is decompressed by Camarena catheter. | |Prostate gland is not well visualized. | | | |Mild bilateral hip osteoarthritis. No acute osseous abnormality identified. | | | |IMPRESSION- | |1. Minimal dependent atelectasis in both lower lobes. No acute airspace | |disease. Small bilateral pleural effusions. No pneumothorax. | |2. Small amount of pelvic and right perihepatic ascites. | |3. Cholelithiasis without gallbladder wall thickening demonstrated. No definite | |biliary dilation. | |4. Stable bilateral nonobstructive nephrolithiasis, left greater than right. | |Camarena catheter balloon within the bladder. | |5. No bowel dilation. | |6. Diffuse anasarca throughout the chest, abdomen, and pelvic soft tissues | |compatible with extensive fluid overload. | | | | | |A preliminary report was sent without significant discrepancy. | | | |Dictated and Signed by: Abdirizak Dorantes MD | | Electronically signed: 03/09/2020 3:00 PM | + + + +---------+ + + | Performing | Address | City/State/Zipcode | Phone Number | | Organization | | | | + +---------+ + + | [facility] | | | | + +---------+ + + CT Foot Left wo Contrast (03/09/2020 4:56 AM PDT) + + | Specimen | + + | | + + + + + | Narrative | Performed At | + + + | CT LEFT FOOT CLINICAL INFORMATION: Found down. COMPARISON: | [facility] | | MRI FOOT LEFT WO CONTRAST (02/19/2020); PROCEDURE: Volume CT | | | acquisition with multiplanar reconstructions. At least one of the | | | following CT dose optimization techniques were used: Automated | | | exposure control; Adjustment of mA and/or kV according to patient | | | size; Use of iterative reconstruction technique. FINDINGS: See | | | below IMPRESSION- 1. There is subtle cortical irregularity | | | involving the most distal aspect of the amputation defect at the mid | | | shaft of the fifth metatarsal, cannot entirely exclude osteoarthritis | | | at this one location with scanning soft tissue swelling; however, | | | this may represent postsurgical changes. Otherwise, no other | | | osteolysis or periosteal reaction to suggest acute osteomyelitis. | | | -Consider MRI for further evaluation as clinically needed, although | | | there was a recent MRI dated 02/18/2027 left resident significant | | | interval changes, no MRI is needed. 2. No gas within the soft | | | tissues. 3. Amputation of the 5th digit at the proximal 5th | | | metatarsal diaphysis. 4. Patient movement artifact prevents | | | evaluation of the phalanges. 5. Diffuse osteopenia. Severe | | | atherosclerosis throughout all vasculature. 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 | | | A preliminary report was sent without significant discrepancy. | | | Dictated and Signed by: Abdirizak Dorantes MD Electronically signed: | | | 03/09/2020 10:45 AM | | + + + + + | Procedure Note | + + | Hceng, Rad Results In - 03/09/2020 10:[address] LEFT FOOT | | | | CLINICAL INFORMATION: | | Found down. | | | | COMPARISON: | | MRI FOOT LEFT WO CONTRAST (02/19/2020); | | | | PROCEDURE: | | Volume CT acquisition with multiplanar reconstructions. | | | | At least one of the following CT dose optimization techniques were | | used: Automated exposure control; Adjustment of mA and/or kV according | | to patient size; Use of iterative reconstruction technique. | | | | FINDINGS: | | See below | | | | IMPRESSION- | | 1. There is subtle cortical irregularity involving the most distal aspect of the | | amputation defect at the mid shaft of the fifth metatarsal, cannot entirely | | exclude osteoarthritis at this one location with scanning soft tissue swelling; | | however, this may represent postsurgical changes. Otherwise, no other osteolysis | | or periosteal reaction to suggest acute osteomyelitis. | | -Consider MRI for further evaluation as clinically needed, although there was a | | recent MRI dated 02/18/2027 left resident significant interval changes, no MRI is | | needed. | | | | 2. No gas within the soft tissues. | | | | 3. Amputation of the 5th digit at the proximal 5th metatarsal diaphysis. | | | | 4. Patient movement artifact prevents evaluation of the phalanges. | | | | 5. Diffuse osteopenia. Severe atherosclerosis throughout all vasculature. Severe | | myositis or diabetic related neuropathy with fatty atrophy of all musculature. | | | | A preliminary report was sent without significant discrepancy. | | | | Dictated and Signed by: Abdirizak Dorantes MD | | Electronically signed: 03/09/2020 10:45 AM | + + + +---------+ + + | Performing | Address | City/State/Zipcode | Phone Number | | Organization | | | | + +---------+ + + | [facility] | | | | + +---------+ + + Culture, Urine (03/09/2020 4:24 AM PDT)Only the most recent of 2 results within the time kaylee bender is included. + + + + + + | Component | Value | Ref Range | Performed | Pathologist | | | | | At | Signature | + + + + + + | Culture | >100,000 CFU/ml Chandrika | | [facility] | | | | albicans | | [facility] | | | | | | MEDICAL | | | | | | CENTER - | | | | | | LABORATORY | | + + + + + + + + | Specimen | + + | Urine - Urine | | specimen obtained by | | clean catch | | procedure (specimen) | + + + + + + + | Performing | Address | City/State/Zipcode | Phone Number | | Organization | | | | + + + + + | [facility] | [address] | [place] | [phone] | | [facility] | | [address] | | | - LABORATORY | | | | + + + + + TSH (03/09/2020 3:47 AM PDT) + +-------+ + + + | Component | Value | Ref Range | Performed | Pathologist | | | | | At | Signature | + +-------+ + + + | TSH | 3.73 | 0.55 - 4.78 | [facility] | | | | | uIU/mL | [facility] | | | | | MEDICAL [...] [address] | [place] | [phone] | | [facility] | | [address] | | | - LABORATORY | | | | + + + + + Ammonia (03/09/2020 3:47 AM PDT) + +-------+ + + + | Component | Value | Ref Range | Performed | Pathologist | | | | | At | Signature | + +-------+ + + + | Ammonia | 14 | 11 - 32 umol/L | [facility] | | | | | [...] [address] | [place] | [phone] | | [facility] | | [address] | | | - LABORATORY | | | | + + + + + Ethanol (03/09/2020 3:46 AM PDT) + +-------+ + + + | Component | Value | Ref Range | Performed | Pathologist | | | | | At | Signature | + +-------+ + + + | ALCOHOL, | <10 | <10 mg/dL | [facility] | | | SERUM/PLASM | | | [facility] | | | A | | | MEDICAL | | | [...] [address] | [place] | [phone] | | [facility] | | [address] | | | - LABORATORY | | | | + + + + + Hepatic Function Panel (03/09/2020 3:46 AM PDT) + + + + + + | Component | Value | Ref Range | Performed | Pathologist | | | | | At | Signature | + + + + + + | Bilirubin | <0.2 (L) | 0.3 - 1.2 mg/dL | [facility] | | | Total | | | [facility] | | | | | | MEDICAL | | | | | | CENTER - | | | | | | LABORATORY | | + + + + + + | Total | 5.9 | 5.7 - 8.2 g/dL | [facility] | | | Protein | | | [facility] | | | | | | MEDICAL | | | | | | CENTER - | | | | | | LABORATORY | | + + + + + + | Albumin | 2.5 (L) | 3.2 - 4.8 g/dL | [facility] | | | | | | [facility] | | | | | | MEDICAL | | | | | | CENTER - | | | | | | LABORATORY | | + + + + + + | AST | 20 | 0 - 34 U/L | [facility] | | | | | | [facility] | | | | | | MEDICAL | | | | | | CENTER - | | | | | | LABORATORY | | + + + + + + | ALT | 7 (L) | 10 - 49 U/L | [...] + + + + | Globulin | 3.4 | 2.1 - 3.8 g/dL | [facility] | | | | | | [facility] | | | | | | MEDICAL | | | | | | CENTER - | | | | | | LABORATORY | | + + + + + + | Albumin/Maria Del Carmen | 0.7 (L) | 0.8 - 1.9 | [facility] | | | bulin Ratio | | | [facility] | | | | | | MEDICAL | | | | | | CENTER - | | | | | | LABORATORY | | + + + + + + | Bilirubin, | <0.10 | 0.00 - 0.30 | [facility] | | | Direct | | mg/dl | [facility] | | | | [...] [address] | [place] | [phone] | | [facility] | | [address] | | | - LABORATORY | | | | + + + + + Vitamin B-12 (03/09/2020 1:10 AM PDT)Only the most recent of 3 results within the time per iod is included. + + + + + + | Component | Value | Ref Range | Performed | Pathologist | | | | | At | Signature | + + + + + + | VITAMIN | 1,277 (H)Comment: | 156 - 672 pg/mL | [facility] | | | B-12 | DEFICIENT: | | [facility] | | | | <145 | [...] [address] | [place] | [phone] | | [facility] | | [address] | | | - LABORATORY | | | | + + + + + ECG 12 lead (03/09/2020 1:07 AM PDT)Only the most recent of 2 results within the time alexis od is included. + + + + + + | Component | Value | Ref Range | Performed | Pathologist | | | | | At | Signature | + + + + + + | VENTRICULAR | 107 | BPM | [facility] | | | RATE EKG | | | | | + + + + + + | ATRIAL RATE | 107 | BPM | [facility] | | + + + + + + | P-R | 140 | ms | [facility] | | | INTERVAL | | | | | + + + + + + | QRS | 76 | ms | [facility] | | | DURATION | | | | | + + + + + + | Q-T | 358 | ms | [facility] | | | INTERVAL | | | | | + + + + + + | Q-T | 477 | ms | [facility] | | | INTERVAL | | | | | | (CORRECTED) | | | | | + + + + + + | P WAVE AXIS | 72 | degrees | [facility] | | + + + + + + | QRS AXIS | -20 | degrees | [facility] | | + + + + + + | T AXIS | 79 | degrees | [facility] | | + + + + + + | INTERPRETAT | Sinus tachycardiaLow | | [facility] | | | ION TEXT | voltage QRSLead V6 | | | | | | cannot be | | | | | | interpretedWhen compared | | | | | | with ECG of 06-JAN-2020 | | | | | | 03:31,QRS axis has | | | | | | shifted | | | | | | leftwardConfirmed by | | | | | | CRISTINE HUDDLESTON MD ([id number]) | | | | | | on 03/09/2020 7:49:52 AM | | | | + + [...] + +---------+ + + Urinalysis with Microscopic with Culture if Indicated (03/09/2020 12:56 AM PDT)Only the mos t recent of 2 results within the time period is included. + + + + + + | Component | Value | Ref Range | Performed | Pathologist | | | | | At | Signature | + + + + + + | Color, | Shante (A) | Light Yellow, | [facility] | | | Urine | | Yellow, Straw | [facility] | | | | | | MEDICAL | | | | | | CENTER - | | | | | | LABORATORY | | + + + + + + | Clarity | Turbid (A) | Clear | [facility] | | | | | | [facility] | | | | | | MEDICAL | | | | | | CENTER - | | | | | | LABORATORY | | + + + + + + | pH, Urine | 5.0 | 5.0 - 8.0 | [facility] | | | | | | [facility] | | | | | | MEDICAL | | | | | | CENTER - | | | | | | LABORATORY | | + + + + + + | Specific | 1.017 | 1.001 - 1.030 | [facility] | | | [place], | | | [facility] | | | Urine | | | MEDICAL | | | | | | CENTER - | | | | | | LABORATORY | | + + + + + + | Protein, | 100 mg/dL (A) | Negative | [facility] | | | Urine | | | [facility] | | | | | | MEDICAL | | | | | | CENTER - | | | | | | LABORATORY | | + + + + + + | Blood, | Small (A) | Negative | [facility] | | | Urine | | | [facility] | | | | | | MEDICAL | | | | | | CENTER - | | | | | | LABORATORY | | + + + + + + | Glucose, | 150 mg/dL (A) | Negative | [facility] | | | Urine | | | [facility] | | | | | | MEDICAL | | | | | | CENTER - | | | | | | LABORATORY | | + + + + + + | Ketones, | Negative | Negative | [facility] | | | Urine | | | [facility] | | | | | | MEDICAL | | | | | | CENTER - | | | | | | LABORATORY | | + + + + + + | Bilirubin, | Negative | Negative | [facility] | | | Urine | | | [facility] | | | | | | MEDICAL | | | | | | CENTER - | | | | | | LABORATORY | | + + + + + + | Nitrite, | Negative | Negative | [facility] | | | Urine | | | [facility] | | | | | | MEDICAL | | | | | | CENTER - | | | | | | LABORATORY | | + + + + + + | Leukocyte | Small (A) | Negative | [facility] | | | Esterase, | | | [facility] | | | Urine | | | MEDICAL | | | | | | CENTER - | | | | | | LABORATORY | | + + + + + + | Urobilinoge | Negative | 0.2 mg/dL, 1.0 | [facility] | | | n, Urine | | mg/dL, Negative | [facility] | | | | | | MEDICAL | | | | | | CENTER - | | | | | | LABORATORY | | + + + + + + | White Blood | >100 (A) | 0 - 2 /HPF | [facility] | | | Cells, | | | [facility] | | | Urine | | | MEDICAL | | | | | | CENTER - | | | | | | LABORATORY | | + + + + + + | White Blood | Many (A) | None Seen /HPF | [facility] | | | Cell | | | [facility] | | | Clumps, | | | MEDICAL | | | Urine | | | CENTER - | | | | | | LABORATORY | | + + + + + + | Red Blood | 25-50 (A) | 0 - 2 /HPF | [facility] | | | Cells, | | | [facility] | | | Urine | | | MEDICAL | | | | | | CENTER - | | | | | | LABORATORY | | + + + + + + | Squamous | 0-2 | 0 - 2 /LPF | [facility] | | | Epithelial | | | [facility] | | | Cells, | | | MEDICAL | | | Urine | | | CENTER - | | | | | | LABORATORY | | + + + + + + | Bacteria, | Negative | Negative /HPF | [facility] | | | Urine | | | [facility] | | | | | | MEDICAL | | | | | | CENTER - | | | | | | LABORATORY | | + + + + + + | Budding | Moderate (A) | Negative /HPF | [facility] | | | Yeast, | | | [facility] | | | Urine | | | MEDICAL | | | | | | CENTER - | | | | | | LABORATORY | | + + + + + + | Urine | Urine Culture Not | | [facility] | | | Comment | Indicated | | [facility] | | | [...] + | [facility] | [address] | [place] | [phone] | | [facility] | | [address] | | | - LABORATORY | | | | + + + + + Osmolality, Urine (03/09/2020 12:56 AM PDT)Only the most recent of 2 results within the is included. + +-------+ + + + | Component | Value | Ref Range | Performed | Pathologist | | | | | At | Signature | + +-------+ + + + | OSMO URINE | 350 | 300-1,000 | [facility] | | | | | mOsm/kg | [facility] | | | | [...] ST. | [address] | [place], [place] | [phone] | | [facility] | | [address] | | | - LABORATORY | | | | + + + + + Drugs of Abuse, Screen, Urine (03/09/2020 12:56 AM PDT)Only the most recent of 2 results wi thin the time period is included. + + + + + + | Component | Value | Ref Range | Performed | Pathologist | | | | | At | Signature | + + + + + + | Amphetamine | Negative | Negative | [facility] | | | Screen, | | | [facility] | | | Urine | | | MEDICAL | | | | | | CENTER - | | | | | | LABORATORY | | + + + + + + | Barbiturate | Negative | Negative | [facility] | | | s Screen, | | | [facility] | | | Urine | | | MEDICAL | | | | | | CENTER - | | | | | | LABORATORY | | + + + + + + | Benzodiazep | Negative | Negative | [facility] | | | alan | | | [facility] | | | Screen, | | | MEDICAL | | | Urine | | | CENTER - | | | | | | LABORATORY | | + + + + + + | Cannabinoid | Positive (A) | Negative | [facility] | | | s Screen, | | | [facility] | | | Urine | | | MEDICAL | | | | | | CENTER - | | | | | | LABORATORY | | + + + + + + | Cocaine | Negative | Negative | [facility] | | | Screen, | | | [facility] | | | Urine | | | MEDICAL | | | | | | CENTER - | | | | | | LABORATORY | | + + + + + + | Methadone | Negative | Negative | [facility] | | | Screen, | | | [facility] | | | Urine | | | MEDICAL | | | | | | CENTER - | | | | | | LABORATORY | | + + + + + + | Opiates | Positive (A) | Negative | [facility] | | | Screen, | | | [facility] | | | Urine | | | [...] + | [facility] | [address] | [place] | [phone] | | [facility] | | [address] | | | - LABORATORY | | | | + + + + + POC Blood Gases (03/09/2020 12:54 AM PDT) + + + + + + | Component | Value | Ref Range | Performed | Pathologist | | | | | At | Signature | + + + + + + | Specimen | Vein | | [facility] | | | Source | | | [facility] | | | | | | MEDICAL | | | | | | CENTER - | | | | | | LABORATORY | | + + + + + + | pH, POC | 7.334 | 7.3 - 7.45 | [facility] | | | | | | [facility] | | | | | | MEDICAL | | | | | | CENTER - | | | | | | LABORATORY | | + + + + + + | HCO3, POC | 17.8 (L) | 21.0 - 28.0 | [facility] | | | | | mmol/L | [facility] | | | | | | MEDICAL | | | | | | CENTER - | | | | | | LABORATORY | | + + + + + + | TCO2, POC | 18.8 (L) | 22.0 - 29.0 | [facility] | | | | | mmol/L | [facility] | | | | | | MEDICAL | | | | | | CENTER - | | | | | | LABORATORY | | + + + + + + | Base | -7.2 (L) | -2.0 - 3.0 | [facility] | | | Excess, POC | | mmol/L | [facility] | | | | | | MEDICAL | | | | | | CENTER - | | | | | | LABORATORY | | + + + + + + | Base | -8.1 (L) | -2.0 - 3.0 | [facility] | | | Excess, | | mmol/L | [facility] | | | Extracellul | | | MEDICAL | | | ar fluid, | | | CENTER - | | | POC | | | LABORATORY | | + + + + + + | O2 Sat, POC | 77 (L) | 90 - 100 % | [facility] | | | | | | [facility] | | | | | | MEDICAL | | | | | | CENTER - | | | | | | LABORATORY | | + + + + + + | PCO2, POC | 33.4 (L) | 35 - 45 mmHg | [facility] | | | | | | [facility] | | | | | | MEDICAL | | | | | | CENTER - | | | | | | LABORATORY | | + + + + + + | pO2, POC | 44 (L) | 60 - 750 mmHg | [facility] | | | | | [...] ST. | [address] | [place], [place] | [phone] | | [facility] | | [address] | | | - LABORATORY | | | | + + + + + External Lab: PTH, Intact (02/27/2020)Only the most recent of 2 results within the time per iod is included. + +-------+ + + + | Component | Value | Ref Range | Performed | Pathologist | | | | | At | Signature | + +-------+ + + + | PTH Intact, | 45.39 | 15 - 65 | | | | External | | | | | + +-------+ + + + + + | Specimen | + + | | + + CBC with Manual Differential (02/27/2020)Only the most recent of 2 results within the time period is included. + + + + + + | Component | Value | Ref Range | Performed | Pathologist | | | | | At | Signature | + + + + + + | WBC | 16.8 (A) | 4.5 - 11.0 | | | + + + + + + | RBC | 3.45 (A) | 4.30 - 5.70 | | | | | | M/uL | | | + + + + + + | Hemoglobin | 10.2 (A) | 13.5 - 18.0 | | | + + + + + + | Hematocrit, | 32.4 (A) | 41.0 - 50.0 % | | | | POC | | | | | + + + + + + | MCV | 93.7 | 81.0 - 99.0 fL | | | + + + + + + | MCH | 29.0 | 27.0 - 33.0 pg | | | + + + + + + | MCHC | 31.0 | 30.0 - 36.0 | | | | | | g/dL | | | + + + + + + | Platelet | 326 | 140 - 440 | | | | Count | | | | | | Plasma | | | | | + + + + + + | RDW | 15.7 (A) | 10.5 - 15.0 | | | + + + + + + | BAL | 83 (A) | 39 - 80 % | | | | Neutrophils | | | | | | % | | | | | + + + + + + | % | 10.3 (A) | 24 - 44 | | | | Lymphocytes | | | | | + + + + + + | Monocyte % | 4.8 | 0 - 12 | | | + + + + + + | Eosinophils | 1.2 | 0 - 6 | | | | % | | | | | + + + + + + | BF % | 1 | 0 - 2 % | | | | Basophils | | | | | + + + + + + + + | Specimen | + + | Blood | + + Iron and Iron Binding Capacity (02/27/2020)Only the most recent of 2 results within the is included. + + + + + + | Component | Value | Ref Range | Performed | Pathologist | | | | | At | Signature | + + + + + + | Iron | 46 | 37 - 160 ug/dL | | | + + + + + + | Iron | 34 (A) | 200 - 55 % | | | | Saturation | | | | | + + + + + + | TIBC | 138 (A) | 245 - 400 ug/dL | | | + + + + + + | Ferritin, | 1,248 (A) | 30 - 400 | | | | External | | | | | + + + + + + | TRANSFERRIN | 98.5 (A) | 180.0 - 329.0 | | | | | | mg/dL | | | + + + + + + + + | Specimen | + + | Blood | + + Protein/Creatinine Ratio, Urine (02/27/2020) + + + + + + | Component | Value | Ref Range | Performed | Pathologist | | | | | At | Signature | + + + + + + | Protein/Cre | 12,326.2 (A) | 0 - 150 | | | | at Ratio | | | | | + + + + + + + + | Specimen | + + | Urine | + + Urinalysis (02/27/2020)Only the most recent of 2 results within the time period is included . + + + + + + | Component | Value | Ref Range | Performed | Pathologist | | | | | At | Signature | + + + + + + | Color | yellow | | | | + + + + + + | Clarity | Turbid | | | | + + + + + + | Specific | 1.014 | 1.001 - 1.030 | | | | [place], | | | | | | Urine | | | | | + + + + + + | pH, Urine | 5.0 | 5.0 - 8.0 | | | + + + + + + | Protein, | 300 mg/dL (A) | Negative | | | | Urine | | | | | + + + + + + | Glucose, | Positive (A) | Negative | | | | Urine | | | | | + + + + + + | Ketones, | Trace (A) | Negative | | | | Urine | | | | | + + + + + + | Bilirubin, | Negative | Negative | | | | Urine | | | | | + + + + + + | Blood, | Moderate (A) | Negative | | | | Urine [...] + + + + | Leukocyte | Large (A) | Negative | | | | Esterase, | | | | | | Urine | | | | | + + + + + + | CASTS | Negative | | | | + + + + + + | WBC UA | 50 | /HPF | | | + + + + + + | RBC UA | 50 | /HPF | | | + + + + + + | EPITHELIAL | 0 | /LPF | | | | CASTS UA | | | | | + + + + + + | CRYSTAL UA | Negative | | | | + + + + + + | Bacteria, | Negative | Negative /HPF | | | | Urine | | | | | + + + + + + + + | Specimen | + + | Urine | + + C-Reactive Protein (02/21/2020 5:47 AM PDT)Only the most recent of 3 results within the ti me period is included. + + + + + [address] | [place] | [phone] | | [facility] | | [address] | | | - LABORATORY | | | | + + + + + Jing Allen C Panel, Reflex (02/20/2020 3:55 AM PDT) + + + [...] | | | | > 0.9 The [facility] | | | | | | recommends that a | | | | | | positive HCV antibody | | | | | | result be followed up | | | | | | with a HCV Nucleic Acid | | | | | | Amplification test | | | | | | ([id number]). | | | | + + + + + + + + | Specimen | + + | Blood | + + + + + | Narrative | Performed At | + + + | Performed at: 01 - [facility] [address], | REFERENCE LAB | | [id number] Tosser: Jerome Agudelo MD, Phone: | [facility] [place] | | [phone] | | + + + + + + + + | Performing | Address | City/State/Zipcode | Phone Number | | Organization | | | | + + + + + | REFERENCE [facility] | [address] | [place], [place] | [phone] | | [facility] | [facility] | [address] | | + + + + + [...] major | | | tendons within the jpjlj-hm-wgjx are grossly intact. | | + + [...] effusion.The major tendons within the | | xrpwq-gh-taps are grossly intact.IMPRESSION: No evidence for osteomyelitis.Diffuse [...] | | |The major tendons within the vqezk-tt-exrc are grossly intact. | | | |IMPRESSION: [...] + +---------+ + + Hemoglobin and Hematocrit (02/18/2020 1:57 PM PDT)Only the most recent of 3 results within the time period is included. + + + + + [...] 9.3 (L) | 13.5 - 18.0 | [facility] | | | | | g/dL | [facility] | | | | | | MEDICAL | | | | | | CENTER - | | | | | | LABORATORY | | + + + + + + + + | Specimen | + + | Blood | + + + + + + + | Performing | Address | City/State/[facility] | Phone Number | | Organization | | | | + + + + + | [facility] | [address] | [place] | [phone] | | [facility] | | [address] | | | - LABORATORY | | | | + + + + + Red Blood Cells (PRBC) - Transfuse (02/18/2020 12:08 PM PDT)Red Blood Cells (PRBC) - Transf use (02/18/2020 9:51 AM PDT)Red Blood Cells (PRBC) - Crossmatch (02/18/2020 9:26 AM PDT)On ly the most recent of 3 results within the time period is included. + + + + + + | Component | Value | Ref Range | Performed | Pathologist | | | | | At | Signature | + + + + + + | Product | [id number] | | [facility] | | | Code | | | [facility] | | | | | | MEDICAL | | | | | | CENTER - | | | | | | BLOOD BANK | | + + + + + + | UNIT # | [id number] | | [facility] | | | | [...] | | | INTERP | | | [facility] | | [...] + + + + | Blood | [id number] | | [facility] | | | Product | | | [facility] | | | Expiration | | | MEDICAL | | | Date and | | | CENTER - | | | Time | | | BLOOD BANK | | + + + + + + | Product | [id number] | | [facility] | | | Blood Type | | | [facility] | | | Barcode | | | [...] St | [place] | | | [facility] | | [address] | | | - BLOOD BANK | | | | + + + + + Sedimentation Rate (02/18/2020 5:23 AM PDT) + +--------+ + + + | Component | Value | Ref Range | Performed | Pathologist | | | | | At | Signature | + +--------+ + + + | Erythrocyte | 28 (H) | <15 mm/hr | [facility] | | | | | | [facility] | | | Sedimentati | | | [...] + | [facility] | [address] | [place] | [phone] | | [facility] | | [address] | | | - LABORATORY | | [...] | | | marcescensComment: | | [facility] | | | | Consider combination | | MEDICAL | | | | therapy for serious | | CENTER - | | | | infections. | | LABORATORY | | + + + + + + | Gram Stain | 2+ White Blood Cells | | [facility] | | | Result | | | [facility] | | | | | | MEDICAL | | | | | | CENTER - | | | | | | LABORATORY | | + + + + + + | Gram Stain | No organisms seen | | [facility] | | | Result | | | [facility] | | [...] [address] | [place] | [phone] | | [facility] | | [address] | | | - LABORATORY | | [...] [address] | [place] | [phone] | | [facility] | | [address] | | | - LABORATORY | | [...] ST. | [address] | [place], [place] | [phone] | | [facility] | | [address] | | | - LABORATORY | | [...] | | | + +---------+ + + Sodium, Urine, Random (02/16/2020 10:58 AM PDT)Only the most recent of 2 results within the time period is included. + +-------+ + + + | Component | Value | Ref Range | Performed | Pathologist | | | | | At | Signature | + +-------+ + + + | Sodium, | 64 | 40 - 220 mmol/L | [facility] | | | Urine | | | [facility] | | | Random | | [...] [address] | [place] | [phone] | | [facility] | | [address] | | | - LABORATORY | | | | + + + + + Creatinine, Urine, Random (02/16/2020 10:58 AM PDT)Only the most recent of 2 results within the time period is included. + +-------+ + + + | Component [...] + | [facility] | [address] | [place] | [phone] | | [facility] | | [address] | | | - LABORATORY | | | | + + + + + Retic Count (02/16/2020 1:53 AM PDT)Only the most recent of 2 results within the time alexis od is [...] ST. | [address] | [place], [place] | [phone] | | [facility] | | [address] | | | - LABORATORY | | | | + + + + + Type and Screen (02/16/2020 1:53 AM PDT)Only the most recent of 2 results within the time period is included. + + + + + [...] St | [place] | | | [facility] | | [address] | | | - BLOOD BANK | [...] in | 19 - 88 pg/mL | [facility] | | | | use as of November 22, | | [facility] | | | | 2018. Check reference [...] [address] | [place] | [phone] | | [facility] | | [address] | | | - LABORATORY | | | | + + + + + Iron and Transferrin (02/16/2020 1:52 AM PDT)Only the most recent of 2 results within the time period is included. + + + + + + | Component | Value | Ref Range | Performed | Pathologist | | | | | At | Signature | + + + + + + | Iron | 14 (L) | 65 - 175 ug/dL | [facility] | | | | | [facility] | | | | | | MEDICAL | | | | | | CENTER - | | | | | | LABORATORY | | + + + + + + | TRANSFERRIN | 85.0 (L) | 215.0 - 365.0 | [facility] | | | | | mg/dL | [facility] | | | | | | MEDICAL [...] (L) | 20.0 - 55.0 % | [facility] | | | SATURATION | | | [facility] | | [...] + | [facility] | [address] | [place] | [phone] | | [facility] | | [address] | | | - LABORATORY | | | | + + + + + Folate (02/16/2020 1:52 AM PDT)Only the most recent of 2 results within the time period is included. + +-------+ + + + | Component [...] | [address] | [place] | [phone] | | [facility] | | [address] | | | - LABORATORY | | | | + + + + + Ferritin (02/16/2020 1:52 AM PDT)Only the most recent of 2 results within the time period is included. + +---------+ + + + | Component [...] [address] | [place] | [phone] | | [facility] | | [address] | | | - LABORATORY | | | | + + + + + Coronavirus (COVID-19) NAAT (02/16/2020 1:51 AM PDT)Only the most recent of 2 results with in the time period is included. + + + + + + | Component | Value | Ref Range | Performed | Pathologist | | | | | At | Signature | + + + + + + | SARS | NegativeComment: | Negative | [facility] | | | coronavirus | SARS-CoV-2, RNA | | [facility] | | | 2 NAAT | (COVID-19) [...] ST. | [address] | [place], [place] | [phone] | | [facility] | | [address] | | | - LABORATORY | | [...] | + +---------+ + + External Lab: Protein/Creatinine Ratio (02/15/2020) + +---------+ [...] | + + | | + + IMAGING REPORT - EXTERNAL SCAN (02/15/2020 12:00 AM PDT)Only the most recent of 3 results w ithin the time period is included. + + + | Narrative | Performed At | + + + | Ordered by an | | | unspecified provider. | | + + + LABS - EXTERNAL SCAN (02/15/2020 12:00 AM PDT)Only the most recent of 5 results within the time period is included. + + + | Narrative | Performed At | + + + | Ordered by an | | | unspecified provider. | | + + + ECG - EXTERNAL SCAN (02/15/2020 12:00 AM PDT)Only the most recent of 3 results within the t hebert period is included. + + + | Narrative | Performed At | + + + | Ordered by an | | | unspecified provider. | | + + + [facility] STAT instructions for COVID-19 tracking (01/07/2020 2:47 PM PDT) + +-------+ + + + | Component | Value | Ref Range | Performed | Pathologist | | | | | At | Signature | + +-------+ + + + | [facility] | done | | [facility] | | | COVID STAT | | | | | | instruction | | | | | + +-------+ + + + + + | Specimen | + + | Tissue - Entire | | nasopharynx (body | | structure) | + + + +---------+ + + | Performing | Address | City/State/Zipcode | Phone Number | | Organization | | | | + +---------+ + + | [facility] | | | | + +---------+ + + Stool Pathogens, NAAT (01/06/2020 4:29 AM PDT) + + + + + + | Component | Value | Ref Range | Performed | Pathologist | | | | | At | Signature | + + + + + + | Campylobact | Not Detected | Not Detected | [facility] | | | er, NAAT | | | [facility] | | | | | | MEDICAL | | | | | | CENTER - | | | | | | LABORATORY | | + + + + + + | Salmonella, | Not Detected | Not Detected | [facility] | | | NAAT | | | [facility] | | | | | | MEDICAL | | | | | | CENTER - | | | | | | LABORATORY | | + + + + + + | Shigella | Not Detected | Not Detected | [facility] | | | NAAT | | | [facility] | | | | | | MEDICAL | | | | | | CENTER - | | | | | | LABORATORY | | + + + + + + | Vibrio, | Not Detected | Not Detected | [facility] | | | NAAT | | | [facility] | | | | | | MEDICAL | | | | | | CENTER - | | | | | | LABORATORY | | + + + + + + | Yersinia | Not Detected | Not Detected | [facility] | | | enterocolit | | | [facility] | | | ica, NAAT | | | MEDICAL | | | | | | CENTER - | | | | | | LABORATORY | | + + + + + + | Shigatoxin | Not Detected | Not Detected | [facility] | | | 1 | | | [facility] | | | | | | MEDICAL | | | | | | CENTER - | | | | | | LABORATORY | | + + + + + + | Shigatoxin | Not Detected | Not Detected | [facility] | | | 2 | | | [facility] | | [...] [address] | [place] | [phone] | | [facility] | | [address] | | | - LABORATORY | | | | + + + + + Urea nitrogen, urine (01/06/2020 4:28 AM PDT) + +-------+ + + + | Component | Value | Ref Range | Performed | Pathologist | | | | | At | Signature | + +-------+ + + + | Urea | 170 | Not Estab. | [facility] | | | nitrogen, | | mg/dL | LAB [facility] | | | Urine | | | - [facility] | | + +-------+ + + + + + | Specimen | + + | Urine - Urine | | specimen (specimen) | + + + + + | Narrative | Performed At | + + + | Performed at: 01 - [facility] [place] [address], | [facility] | | [id number] Tosser: Jerome Agudelo MD, Phone: | [facility] | | [phone] | | + + + + + + + + | Performing | Address | City/State/Zipcode | Phone Number | | Organization | | | | + + + + + | RE[facility] | [address] | [place], [place] | [phone] | | [facility] | [place] | [address] | | + + + + + Fecal leukocytes (01/06/2020 4:28 AM PDT) + + + + + + | Component | Value | Ref Range | Performed | Pathologist | | | | | At | Signature | + + + + + + | Lactoferrin | Negative | Negative | [facility] | | | , Qual | | | [facility] | | [...] ST. | [address] | [place], [place] | [phone] | | [facility] | | [address] | | | - LABORATORY | | | | + + + + + Troponin I (01/06/2020 3:28 AM PDT) + + + + + + | Component | Value | Ref Range | Performed | Pathologist | | | | | At | Signature | + + + + + + | Troponin I | 0.01Comment: | <0.06 ng/mL | [facility] | | | | Comment:Reference | | [facility] | | | | Ranges: 0.00-0.06 = | | MEDICAL | | | | NORMAL >0.06 = | | CENTER - | | | | SUSPICIOUS FOR | | LABORATORY | | | | MYOCARDIAL DAMAGE NOTE: | | | | | | Values greater than | | | | | | 0.78 ng/mL have been | | | | | | shown to be strongly | | | | | | associated with acute | | | | | | myocardial infarction. | | | | | | The [employer] | | | | | | Cardiology (ACC) | | | | | | recommends a decision | | | | | | limit of 0.06 ng/mL for | | | | | | this assay. Results | | | | | | greater than 0.06 can | | | | | | reflect a pre-infarct | | | | | | acute coronary syndrome, | | | | | | but can also reflect | | | | | | myocardial necrosis or | | | | | | injury that is not due | | | | | | to coronary artery | | | | | | disease. Some of these | | | | | | causes are sepsis, | | | | | | hypocolemia, atrial | | | | | | fibrillation, heart | | | | | | failure, pulmonary | | | | | | embolism, myocarditis, | | | | | | myocardial contusion, | | | | | | and renal failure. The | | | | | | diagnosis of myocardial | | | | | | infarction should be | | | | | | based on a combination | | | | | | of the patient's | | | | | | clinical presentation | | | | | | and the clinical | | | | | | laboratory test results | | | | | | (especially serial | | | | | | troponin levels). | | | | + + + + + + + + | Specimen | + + | Blood | + + + + + + + | Performing | Address | City/State/Zipcode | Phone Number | | Organization | | | | + + + + + | [facility] | [address] | [place] | [phone] | | [facility] | | [address] | | | - LABORATORY | | | | + + + + + Blood Gas, Venous (01/06/2020 2:50 AM PDT) + + + + + + | Component | Value | Ref Range | Performed | Pathologist | | | | | At | Signature | + + + + + + | pH, Venous | 7.10 (LL) | 7.30 - 7.40 | [facility] | | | | | | [facility] | | | | | | MEDICAL | | | | | | CENTER - | | | | | | LABORATORY | | + + + + + + | pCO2, | 17 (L) | 40 - 50 mm Hg | [facility] | | | Venous | | | [facility] | | | | | | MEDICAL | | | | | | CENTER - | | | | | | LABORATORY | | + + + + + + | pO2, Venous | 67 (H) | 25 - 40 mm Hg | [facility] | | | | | | [facility] | | | | | | MEDICAL | | | | | | CENTER - | | | | | | LABORATORY | | + + + + + + | HCO3, | 5.1 | mmol/L | [facility] | | | Venous | | | [facility] | | | | | | MEDICAL | | | | | | CENTER - | | | | | | LABORATORY | | + + + + + + | Base | -23.1 | mmol/L | [facility] | | | Excess, | | | [facility] | | | Venous | | | MEDICAL | | | | | | CENTER - | | | | | | LABORATORY | | + + + + + + | O2 | 91 (H) | 60 - 85 % | [facility] | | | Saturation, | | | [facility] | | | Venous | | | MEDICAL | | | | | | CENTER - | | | | | | LABORATORY | | + + + + + + | Hemoglobin, | 8.3 | g/dL | [facility] | | | Venous | | | [facility] | | | | | | MEDICAL | | | | | | CENTER - | | | | | | LABORATORY | | + + + + + + | Oxyhemoglob | 87.8 (L) | 92.0 - 100.0 % | [facility] | | | in, Venous | | | [facility] | | | | | | [facility] | | | | | | CENTER - | | | | | | LABORATORY | | + + + + + + | Methemoglob | 1.8 | % | [facility] | | | in, Venous | | | [facility] | | | | | | [facility] | | | | | | CENTER - | | | | | | LABORATORY | | + + + + + + | Carboxyhemo | 1.4 | 0.0 - 3.0 % | [facility] | | | globin, | | | [facility] | | | Venous | | | MEDICAL | | | | | | CENTER - | | | | | | LABORATORY | | + + + + + + | FiO2 | 21.0 | % | [facility] | | | | | | [facility] | | [facility] | | | [facility] | | | | | | CENTER - | | | | | | LABORATORY | | + + + + + + | PATIENT | 37.0 | | [facility] | | | TEMP | | | [facility] | | [...] ST. | [address] | [place], [place] | [phone] | | [facility] | | [id number] | | | - LABORATORY | | | | + + + + + XR Chest 1 Vw (01/05/2020 12:00 AM [...] | | | + +---------+ + + from Last 3 Months Insurance [...] | [employer] | [employer] | [id number] | | [phone] | | Medica | | MEDICAID HMO | HEALTH | | 018-Pr | 1 | | id | | | MDCD | | esent | | | | | | [place] | | | | | | + +--------+ +--------+ +---------+--------+ | [employer] | [employer] | [id number] | | [phone] | | Medica | | MEDICAID HMO [...] Self | [birth year] | [address] | | | al/Fam | | 1990 | [phone] | [address] [place] | | | [place]ian | | | 1 (Home) | [phone] | + +--------+ +--------+ + + | Brooks Marquez | Person | Self | [birth year] | | [address] | | | al/Fam | | 1990 | [phone] | [address] [place] | | | [place] | | | 1 (Home) | [phone] | + +--------+ +--------+ + + Advance Directives + + + + + | Type | Date Recorded | Patient | Explanation | | | | [employer] Member | | + + + + + | Power of | | | | | [employer] | | | | + + + + + | Advance | 09/20/2018 | | | | Directive | 10:13 AM | | | + + + + + + + + + + | Code Status | Date | Date | Comments | | | Activated | Inactivated | | + + + + + | Full Code | 03/09/2020 | 03/14/2020 | | | | 12:38 AM | 5:46 PM | | + + + + + + + + +---+ | | | | | + + + +---+ | Full Code | 02/15/2020 | 02/21/2020 | | | | 11:49 PM | 5:15 PM | | + + + +---+ + + + +---+ | | | | | + + + +---+ | Full Code | 01/08/2020 | 01/10/2020 | | | | 8:16 AM | 3:26 PM | | + + + +---+ + + + +---+ | | | | | + + + +---+ | Full Code | 01/06/2020 | 01/08/2020 | | | by default | 2:44 AM | 8:16 AM | | | - TBD | | | | + + + +---+ + + + +---+ | | | | | + + + +---+ | Full Code | 06/09/2019 | 06/10/2019 | | | | 11:16 PM | 12:53 PM | | + + + +---+
--- OUTSIDE RECORDS SUMMARY | ~2020-03-21 | XMS | Encounter Summary ---
Demographics + + + | Address | [address] | | | [place] [address] | + + + | Home Phone | | + + + | Preferred Language | Unknown | + + + | Marital Status | Single | + + + | Episcopalian Affiliation | NON | + + + [...] | Samantha Ramos | ECON | [address] | | | | | [place], [place] | | | | | [address] | | + + + + + Care Team Providers + +------+ + | Care Tin Dipper Name | Role | Phone | + [...]
--- OUTSIDE RECORDS SUMMARY | ~2020-03-21 | XMS | Encounter Summary ---
Demographics + + + | Address | [address] | | | [place] [address] | + + + | Home Phone [...] Samantha Ramos | ECON | [address] # | | | | | [place] | | | | | [address] | | + + + + + Care Team Providers + +------+ + | Care Web Content & Social Media Manager Name | Role | Phone | [...] | | | with type 1 | [address] | 140 | | | | | diabetes | Phone: | [place], [place] | | | | | mellitus | [phone] | [address] | | | | | ([facility]) Type | Fax: | Phone: | | | | | 1 diabetes | [phone] | [phone] | | | | | mellitus | | Fax: | | | | | with | | [phone] | | | | | hyperglycemi | | | | | | | a ([facility]) | | | | | | | [...] | | | | | hyperglycemi | [facility], [place] | PPV05 | | | | | a ([facility]) | [address] | Physician's | | | | | Procedures | Phone: | Zeniachadwick Amarilis | | | | | CONSULT TO | [phone] | 140 | | | | | ADULT | Fax: | [place], [place] | | | | | DIABETES - | [phone] | [address] | | | | | EDUCATION | | Phone: | | | | | (DIABETES | | [phone] | | | | | SELF-MANAGEM | | Fax: | | | | | ENT) | | [phone] | +--------+--------+ + + + + Reason [...] + + | 08/25/ | Hospital | [facility] [address] | [address] | | | 2015 - | Encounter | Nathalia Bernardo MD [address] | | | | | 14C [facility] | [address] | | | 08/27/ | | [place], [place] | [place], [place] | | | 2014 | | [address] | [address] | | | | | [phone] | [phone] | | | | | | | | | | | | Harris Martínez MD | | | | | | Chrissie | | | | | | [facility] | | | | | | Center [address] | | | | | | [address] [place], | | | | | | [place] [address] | | | | | | [phone] | | | | | | | | | | | | Jeff Diggs, | | | | | | ,MP[facility] [address] | | | | | | [address] | | | | | | [place], [place] | | | | | | [address] | | | | | | [phone] | | | | | | | | | | | | Eunice Parada, | | | | | | [address] | | | | | | [address] | | | | | | [place], [place] | | | | | | [address] | | | | | | [phone] | | | | | | | [...] Procedures 1. Gastric emptying study Consulting Services: Brick Grader Reason For Admission: Diabetic ketoacidosis. Hyperglycemia, acute [...] endocrinolog y and diabetes education here at [facility] which were completed. He was counseled on how to rotat e sites for his insulin injections. - Continue glargine 15 units daily + lispro 1 unit per 15 g carb - Outpatient referral to endocrinology and stage rigger - Will need outpatient follow up for [...] post-hospitalization follow-up; Appt at 740am Contact information [facility] [address] [place] [facility] [place] [address] Follow up with [facility] 1st Floor. Specialty: Endocrinology, Diabetes & Metabolism Why: To establish care; follow up on referral to endocrinology if you do not hear back fr om them in 1 week Contact information [address] [facility] Physicians [place] [address] Physicians [facility] [address] Additional information: [facility], 1st floor [address] [place], [place] [id number] The [facility] is the building just past [facility] for [facility]. Turn right immediately past the Pavilion. The entrance to [facility] will be on your right just beyond the main doors to the Pavili. An elevator in e parking garage will take patients directly to the floor of the clinic. [facility] is located on the 1st floor. Please check in at the manager front office. M aps and directions can be found at: [email or web address] Other Discharge Orders and Instructions It was a pleasure taking care of you while you were here at [facility] 1) Take all your medications as prescribed especially your insulin and blood pressure medic ations 2) Follow up with your PCP Dr. Pascual on 09/02 at 740am. 3) Make sure to rotate location of where you inject your insulins and keep close track of y our blood sugars 4) We will make referral to [facility] endocrinology but please follow up with [...] nearest ER for evaluation. Referrals placed to [facility] endocrinology and stage rigger This note was routed to patient's PCP in [facility]). EUNICE PARADA MD Pager - [phone] Sample Sawyerundergraduate advisor Clinical and Medicine [facility] Services [facility] I spent 45 minutes coordinating care for this patient's discharge, of which 30 minutes were spent ebxw-wp-ffnb with the patient as well as with [...] about new lisinopril. Diabetes education provided by wick tender RNLiz. Pt reports he has all DM [...] is stating desire to establish with an Cut Out And Marking Machine Operator. 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 Pt uses insulin syringe and vial for [...] home. States willingness to come back to [facility] for endocrinology care, lives in [facility]. Hypoglycemia: reports 1-2 occurrences per week, states [...] steven. Pt expresses interest in establishing with plant quality manager here at [facility], and is willing to review/discuss further insulin pumps with endocrinology team. Informed pt that insulin pump does not take away the work (still need to check BG levels an d count carbs and give bolus doses) Recommendations 1. Encourage pt to attend support group 2. Encourage improving DM self management and care 3. Refer to [facility] diabetes center for endocrinology care 4. Refer to stage rigger in diabetes center for updating carb counting [...] LD, RN, CDE Inpatient Diabetes Education Pager: [phone] Eunice Rich MD - 08/26/2015 9:03 AM PST Internal Medicine Clinical Hospitalist Service Progress Note ID/CC: Brooks Marquez (Keith) is a 24 year old man with poorly controlled type 1 diabetes trent litus (HgbA1c in 06/2015 of 12.5%) here with diabetic ketoacidosis in setting of impaired in sulin absorption due to subcutaneous scar tissue with concurrent lactic acidosis (now [facility] ed), no clear infectious etiology for [...] full code EUNICE PARADA MD Pager - [phone] Sample Sawyerundergraduate advisor Clinical and Medicine Teaching Hospitalist Services [facility] I spent 40 minutes skwn-xb-rkwv with the patient as well as with nursing, diabetes educato r of which greater than 50% was spent counseling the patient regarding ongoing treatment of DKA, treatment and evaluation of abdominal pain including previous outpatient evaluation, ne ed to limit narcotics as able, care coordination including discussion with patient's outpt P CP team. documented in this encounter Plan of Treatment + +------+--------+ [...] +--------+ + + + | CHEM 8 W/H&H,POC | Urgent | 08/25/2015 | | Results for this | | | | 9:41 PM | | procedure are in the | | | | PST | | results section. | + +--------+ + + + | BG-LAC,POC ISTAT | Urgent | 08/25/2015 | | [...] + + documented in this encounter Results [place] GASTRIC EMPTYING STUDY (08/27/2015 2:13 PM PST) [...] (Ref: | | | | | | Cooper G et all. Am J | | | [...] | | | | | | / ARNJITH WHITAKER | | | | | | [...] VERDE | [address] | [place], [place] | | | TANJA HAY OF ANNA | [facility] | [address] | | | TESTS | | | [...] [facility] | [address] | [place], [place] | | | TANJA HAY OF ANNA | [facility] | [address] | | | TESTS | | | [...] (H) | 60 - 99 mg/dL | [facility] - | | | GLUCOSE, | [...] + + + | [facility] | [address] | [place], [place] | | | [place] [facility] | [address] | [address] | | | TESTS | | | [...] | | | LABORATORY | | | GHANAIAN | | | SERVICES, | | | [...] | + + + + + | [facility] | [address] | [place] [address] | | | SERVICES, CORE | ZENA [...] 97 | 60 - 99 mg/dL | [facility] - | | | GLUCOSE, | [...] VERDE | [address] | [place], [place] | | | TANJA HAY OF CARE | [address] | [address] | | | TESTS | | | | + + + + + CAPILLARY BLOOD GLUCOSE (NO CHG), POC (08/27/2015 7:24 AM PST) + +-------+ + + + | Component | Value | Ref Range | Performed | Pathologist | | | | | At | Signature | + +-------+ + + + | BLOOD | 73 | 60 - 99 mg/dL | [facility] [...] [facility] | [address] | [place], [place] | | | TANJA HAY OF ANNA | [address] | [address] | | | TESTS | | | [...] | + + + + + | [facility] | [address] | [place], [place] | | | TANJA HAY OF CARE | [facility] | [address] | | | TESTS | | | [...] (L) | 60 - 99 mg/dL | VERITO [...] VERDE | [address] | [place], [place] | | | TANJA HAY OF CARE | [facility] | [address] | | | TESTS | | | [...] [facility] | [address] | [place], [place] | | | TANJA HAY OF ANNA | [address] | [address] | | | TESTS | | | [...] + | [facility] | [address] | [place], [place] | | | TANJA HAY OF CARE | [facility] | [address] | | | TESTS | | | [...] (H) | 60 - 99 mg/dL | [facility] - | | | GLUCOSE, | [...] VERDE | [address] | [place], [place] | | | ATNJA HAY OF [facility] | [address] | [address] | | | TESTS | | | [...] [facility] | [address] | [place], [place] | | | TANJA HAY OF ANNA | [address] | [address] | | | TESTS | | | [...] + | [facility] | [address] | [place], [place] | | | TANJA HAY OF CARE | [facility] | [address] | | | TESTS | | | [...] (H) | 60 - 99 mg/dL | [facility] - | | | GLUCOSE, | [...] VERDE | [address] | [place], [place] | | | TANJA HAY [facility] | [facility] | [address] | | | TESTS | | | [...] [facility] | [address] | [place], [place] | | | TANJA HAY OF ANNA | [address] | [address] | | | TESTS | | | [...] | | | LABORATORY | | | GHANAIAN | | | SERVICES, | | | [...] | + + + + + | [facility] | [address] | [place] [address] | | | SERVICES, CORE | ZENA [...] [facility] | [address] | [place], [place] | | | SATNAM POINT OF CARE | [address] | [address] | | | TESTS | | | [...] [facility] | [address] | [place], [place] | | | TANJA HAY OF CARE | [address] | [address] | | | TESTS | | | [...] (H) | 60 - 99 mg/dL | [facility] - | | | GLUCOSE, | [...] VERDE | [address] | [place], [place] | | | TANJA HAY OF ANNA | [address] | [address] | | | TESTS | | | [...] [facility] | [address] | [place], [place] | | | SATNAM POINT OF CARE | [address] | [address] | | | TESTS | | | [...] [facility] | [address] | [place], [place] | | | TANJA HAY OF CARE | [address] | [address] | | | TESTS | | | [...] (H) | 60 - 99 mg/dL | [facility] - | | | GLUCOSE, | | [...] VERDE | [address] | [place], [place] | | | TANJA HAY OF ANNA | [address] | [address] | | | TESTS | | | [...] [facility] | [address] | [place], [place] | | | SATNAM POINT OF CARE | [address] | [address] | | | TESTS | | | [...] VERDE | [address] | [place], [place] | | | [place] [facility] | [address] | [address] | | | TESTS | | | [...] | | | LABORATORY | | | GHANAIAN | | | SERVICES, | | | [...] the MDRD equation recommended by the | [facility] | | National Kidney Disease Education Program. [...] + | [facility] | [address] | [place] [address] | | | SERVICES, CORE | PARK [...] 1.6 mmol/L | LABORATORY | | | ZOEY DODD | + + + + + + + + | Performing | Address | City/State/Zipcode | Phone Number | | Organization | | | | + + + + + | [facility] | [address] | [place] [address] | | | ZOEY DODD | ZENA [...] [facility] | [address] | [place], [place] | | | TANJA HAY OF CARE | [facility] | [address] | | | TESTS | | | [...] VERDE | [address] | [place], [place] | | | TANJA HAY OF CARE | [address] | [address] | | | TESTS | | | | + + + + + CAPILLARY BLOOD GLUCOSE (NO CHG), POC (08/26/2015 5:13 AM PST) + +-------+ + + + | Component | Value | Ref Range | Performed | Pathologist | | | | | At | Signature | + +-------+ + + + | BLOOD | 81 | 60 - 99 mg/dL | [facility] [...] [facility] | [address] | [place], [place] | | | TANJA HAY OF ANNA | [address] | [address] | | | TESTS | | | [...] [facility] | [address] | [place], [place] | | | SATNAM [facility] | [address] | [address] | | | TESTS | | | [...] activity: 50-100 | | | mg/dLDepression of MANGLE FEEDER: >100 mg/dLFatalities reported: >400 mg/dL | | | Acetone, Methanol and Isopropanol:<5 mg/dL: Reported as Not | | | Detected<10 mg/dL but >5 mg/dL: Reported as <10 mg/dL>10 mg/dL: | | | Reported as measured numeric value Test performed by: [facility] | | | Laboratories [address] [address] | | |<5 mg/dL: Reported as Not Detected | | |<10 mg/dL but >5 mg/dL: Reported as <10 mg/dL | | |>10 mg/dL: Reported as measured numeric value | | | | | |Test performed by: | | |[facility] | | |[address] | | |[place] [address] | | + + + + + [...] VERDE | [address] | [place], [place] | | | TANJA HAY OF ANNA | [facility] | [address] | | | TESTS | | | [...] + | [facility] | [address] | [place] [address] | | | SERVICES, CORE | PARK [...] | | | LABORATORY | | | GHANAIAN | | | SERVICES, | | | [...] the MDRD equation recommended by the | [facility] | | National Kidney Disease Education [...] + | [facility] | [address] | [place] [address] | | | SERVICES, CORE | PARK [...] | + + + + + | [facility] | [address] | [place] [address] | | | SERVICES, CORE | ZENA [...] (H) | 60 - 99 mg/dL | [facility] [...] [facility] | [address] | [place], [place] | | | TANJA HAY OF CARE | [address] | [address] | | | TESTS | | | [...] VERDE | [address] | [place], [place] | | | SATNAM POINT OF CARE | [address] | [address] | | | TESTS | | | [...] [facility] | [address] | [place], [place] | | | SATNAM POINT OF CARE | [address] | [address] | | | TESTS | | | [...] (AA) | 60 - 99 mg/dL | [facility] | | | GLUCOSE, | | [...] [facility] | [address] | [place], [place] | | | TANJA HAY OF ANNA | [facility] | [address] | | | TESTS | | | [...] VERDE | [address] | [place], [place] | | | SATNAM POINT OF CARE | [address] | [address] | | | TESTS | | | | + + + + + JENNIFER HATFIELD (08/25/2015 10:37 PM PST) + + + [...] | + + + + + | [facility] | [address] | [place] [address] | | | SERVICES, CORE | ZENA [...] | + + + + + | [facility] | [address] | [place] [address] | | | SERVICES, CORE | PARK [...] | + + + + + | [facility] | [address] | [place] [address] | | | SERVICES, CORE | [address] | | | + + + + + CHEM 8 W/H&VIRGINIA Sagastume (08/25/2015 9:41 PM PST) + + + + + + | Component | Value | Ref Range | Performed | Pathologist | | | | | At | Signature | + + + + + + | SODIUM, POC | 128 (L) | 134 - 143 | [facility] | | | | | mmol/L | [facility] | | | | | | TANJA HAY | | | | | | OF CARE | | | | | | TESTS | | + + + + + + | POTASSIUM, | 4.8 | 3.4 - 5.0 | [facility] - | | | POC [...] 24 | 22 - 29 mmol/L | [facility] - | | | | | | [facility] | | | | | | TANJA HAY | | | | | | OF CARE | | | | | | TESTS | | + + + + + + | GLUCOSE, | >700 (AA) | 60 - 99 mg/dL | [facility] - | | | POC | | | [facility] | | | | | | TANJA HAY | | | | | | OF CARE | | | | | | TESTS | | + + + + + + | BUN, POC | 18 | 6 - 20 mg/dL | [facility] - | | | | | | [...] | | POC | | g/dL | [facility] | | | | | [...] [facility] | [address] | [place], [place] | | | TANJA HAY OF CARE | [address] | [address] | | | TESTS | | | [...] | | | TC02 | | | [facility] | | | | | | TANJA HAY | | | | | | OF CARE | | | | | | TESTS | | + + + + + + | ED BG POC | 7.31 (L) | 7.35 - 7.45 | [facility] - | | | PH | | | [facility] | | | | | | SATNAM, POINT | | | | | | OF CARE | | | | | | TESTS | | + + + + + + | ED BG POC | 53 (H) | 35 - 50 mmHg | [facility] - | | | PCO2 | | | [facility] | | | | | | SATNAM, POINT | | | | | | OF CARE | | | | | | TESTS | | + + + + + + | ED BG POC | 26 | 22 - 28 mmol/L | [facility] - | | | HCO3 | | | [facility] | | | | | | SATNAM, POINT | | | | | | OF CARE | | | | | | TESTS | | + + + + + + | ED BG POC | 0.0 | mmol/L | [facility] | | | BE | | | [facility] | | | | | | HILL, POINT | | | | | | OF CARE | | | | | | TESTS | | + + + + + + | ED BG POC | <50 (L) | 30 - 55 mmHg | [facility] - | | | PO2 | | | [facility] | | | | | | SATNAM, POINT | | | | | | OF CARE | | | | | | TESTS | | + + + + + + | ED BG POC | 34 | % | [facility] - | | | SO2 | | | [facility] | | | | | | SATNAM, POINT | | | | | | OF CARE | | | | | | TESTS | | + + + + + + | ED LACTATE | 2.4 (H) | 0.5 - 2.2 | [facility] - | | | POC | | mmol/L | [facility] | | | | | | SATNAM, POINT | | | | | | OF CARE | | | | | | TESTS | | + + + + + + | ED BG POC | 98.2 F | | [facility] - | | | TEMP | | | [facility] | | | | | | SATNAM, POINT | | | | | | OF CARE | | | | | | TESTS | | + + + + + + | ISTAT | VENOUS | | [facility] - | | | SAMPLE TYPE | | | [facility] | | | [...] [facility] | [address] | [place], [place] | | | TANJA HAY OF ANNA | [address] | [address] | | | TESTS | | | [...] + + + + + + | QTC-CECILE | 470 | ms | [facility] [...] + + + + + | [facility] | [address] | [place], [place] | | | CARDIOLOGY | [address] | [address] | | + + + + + RAINBOW HOLD TUBE - RED TOP (08/25/2015 9:33 PM PST) + + | Specimen | + + | Blood - Blood | | (substance) | + + + + + + + | Performing | Address | City/State/Zipcode | Phone Number | | Organization | | | | + + + + + | [facility] | [address] [facility] | [place] [address] | | | SERVICES, CORE | ZENA [...] + | [facility] | [address] | [place] [address] | | | SERVICES, CORE | PARK [...] | + + + + + | [facility] | [address] | [place] [address] | | | SERVICES, CORE | ZENA [...] + | [facility] | [address] | [place] [address] | | | SERVICES, | [address] | | | | TRANSFUSION MEDICINE [...] | | | LABORATORY | | | GHANAIAN | | | SERVICES, | | | [...] | + + + + + | [facility] | [address] | [place] [address] | | | SERVICES, CORE | ZENA [...] + | [facility] | [address] | [place] [address] | | | YOUSIF, CORE | [address] | | | [...] | + + + + + | [facility] | [address] | [place] [address] | | | SERVICES, CORE | [address] | | | + + + + + LIPASE, PLASMA (08/25/2015 9:33 PM PST) + +--------+ + + + | Component | Value | Ref Range | Performed | Pathologist | | | | | At | Signature | + +--------+ + + + | LIPASE | 54 (L) | 152 - 353 U/L | [facility] | | | (LAB) | | | [...] | + + + + + | [facility] | [address] | [place] [address] | | | SERVICES, CORE | ZENA [...] [facility] | [address] | [place], [place] | | | SATNAM POINT OF CARE | [address] | [address] | | | TESTS | | | | + + + + + ED INFORMATION EXCHANGE (08/25/2015 9:25 PM PST) + + + + + + | Component | Value | Ref Range | Performed | Pathologist | | | | | At | Signature | + + + + + + | TRUDY PID | [id number] | | [facility] | | | | [id number] | | MEDICAL | | | | [...] | | | 08/25/2015 21:25 [facility] | | | Emergency [address]. Abdominal Pain 08/24/2015 16:44 | | | [facility] Emergency -Abd Pain | | | | | | -Epigastric pain | | | | | | -Cyclical vomiting, intractable | | | | | | -Hyperglycemia, unspecified | | | | | | -Abdominal Pain 08/18/2015 | | | 17:23 [facility] Emergency | | | -Gastroparesis [...] -Abdominal Pain 08/09/2015 12:53 | | | [facility] Emergency | | | -Abdominal Pain | | | | | | -Generalized abdominal pain | | | | | | -abd pain | | | -Vomiting | | | | | | -Cyclical vomiting, | | | intractable 08/01/2015 20:43 [facility] | | | Hospital Emergency -Cyclical vomiting, intractable | | | | | | -vomiting abd pain | | | | | | -Hyperglycemia | | | | | | -Abdominal Pain | | | | | | -Generalized abdominal pain | | | | | | -Gastroparesis 07/26/2015 16:13 [facility] | | | [facility] Emergency -vomiting, pain, diabetic | | | | | | -Cyclical vomiting, not | | | intractable | | | -Vomiting | | | 05/30/2015 17:01 [facility] | | | Emergency -Abdominal Pain | | | | | | -Finger Injury | | | -abd | | | pain 05/29/2015 21:54 [facility] | | | Emergency -Gangrene [...] Visits | | | Location ------ --------- 11 [facility] | | | [facility] 1 [facility] | | | [place] 1 [facility] 1 | | | [facility] 14 Total Note: | | | Visits indicate total known visits. | | | | | | --- | | + + + + + + + + | Performing | Address | City/State/Zipcode | Phone Number | | Organization | | | | + + + + + | [facility] | [address] | [place], [place] | [phone] | | [employer] | [address] | [address] | | + + + + + [...] | | | EVENING, First dose on e | | PM PST | | | [...] | | | 08/26/15 at 0208, Until Wed | | | | | [...] | mL/hr | | | CONTINUOUS, Starting 08/26/15 | | AM PST | | [...]
--- OUTSIDE RECORDS SUMMARY | ~2020-03-21 | XMS | Encounter Summary ---
Demographics + + + | Address | [address] | | | [place] [address] | + + + | Home Phone | | + + + | Preferred Language | Unknown | + + + | Marital Status | Single | + + + | Confucianism Affiliation | NON | + + + [...] | Samantha Ramos | ECON | [address] | | | | | [place] | | | | | [address] | | + + + + + Care Team Providers + +------+ + | Care Bead Inspector Name | Role | Phone | + [...] | | | | | diabetes | [place], [place] | for Health | | | | | mellitus | [address] | and Healing, | | | | | ([facility]) | Phone: | [address] | | | | | Procedures | [phone] | [place], [place] | | | | | CONSULT TO | Fax: | [address] | | | | | GI PROCEDURE | [phone] | Phone: | | | | | UNIT: EGD | | [phone] | | | | | | | Fax: | | | | | | | [phone] | + +--------+ + + + + [...] | | 2019 | | Center at [facility] [address] | [address] [facility] | EGD w/ pyloric | | | | [address] | [facility] [address] | botox) | | | | Mailcode: Center | [place], [place] | | | | | [facility] and | [address] | | | | | [place] [address] | [phone] | | | | | [place], [place] | | | | | | [address] | | | | | | [phone] | | | +--------+ + + + [...]
--- OUTSIDE RECORDS SUMMARY | ~2020-03-21 | XMS | Encounter Summary ---
Demographics + + + | Address | [address] | | | [place] [address] | + + + | Home Phone [...] | Samantha Ramos | ECON | [address] | | | | | [place] | | | | | [address] | | + + + + + Care Team Providers + +------+ + | Care Verify Rep Name | Role | Phone | + [...] | | 2015 | | Center at [facility] [address] | | - General | | | | [address] | | | | | | Mailcode: [place] | | | | | | for Health and | | | | | | [facility], [facility] 2 | | | | | | [place], [place] | | | | | | [address] | | | | | | [phone] | | | +--------+ + + + [...]
--- OUTSIDE RECORDS SUMMARY | ~2020-03-21 | XMS | Encounter Summary ---
Demographics + + + | Address | [address] | | | [place] [address] | + + + | Home Phone [...] Samantha Ramos | ECON | [address] | | | | | [place] | | | | | [address] | | + + + + + Care Team Providers + +------+ + | Care Oil Well Gun Perforator Operator Name | Role | Phone | + +------+ + | Erich Yates PA-C | PCP | | + +------+ + Encounter Details +--------+ + + + + | Date | Type | Department | Care Team | Description | +--------+ + + + + | 09/30/ | Ancillary | Registration [address] | Ashanti Roque, | | | 2004 | Registratio | [address] | [address] | | | | n | Perez Mailcode: RP[address] | [address] | | | | | [place], [place] | [place], [place] | | | | | [address] | [address] | | | | | [phone] | [phone] | | | | | | | [...] + | FREE T4 | Routin | 09/30/2004 | | Results for this | | | e | 12:10 PM | | procedure are in the | | | | PST | | results section. | + +--------+ + + + | TSH | Routin | 09/30/2004 | | Results for this | | | e | 12:10 PM | | procedure are in the | | | | PST | | results section. | + +--------+ + + + documented in this encounter Results TSH-THYROID STIM HORMONE (09/30/2004 12:10 PM PST) + + + + + + | Component | Value | Ref Range | Performed | Pathologist | | | | | At | Signature | + + + + + + | TSH | 0.97Comment: Test | 0.28 - 5.00 | | | | | performed by [facility] | [facility]/ | | | | | [facility] | | | | | | [place]. | | | | + + + + + + + + | Specimen | + + | | + + + + + + + | Performing | Address | City/State/Zipcode | Phone Number | | Organization | | | | + + + + + | [facility] | [address] | [place] [address] | | | LABORATORY | | | | + + + + + FREE T4, SERUM (09/30/2004 12:10 PM PST) + + + + + + | Component | Value | Ref Range | Performed | Pathologist | | | | | At | Signature | + + + + + + | FREE T4, | 1.4Comment: Test | 0.7 - 1.8 ng/dL | | | | SERUM | performed by René | | | | | | Louis Tolentino | | | | | | [facility]. | | | | + + + + + + + + | Specimen | + + | | + + + + + + + | Performing | Address | City/State/Zipcode | Phone Number | | Organization | | | | + + + + + | [facility] | [address] | [place] [address] | | | LABORATORY | | | | + + + + + documented in this encounter Visit Diagnoses Not on filedocumented in this encounter"
--- OUTSIDE RECORDS SUMMARY | ~2020-03-21 | XMS | Encounter Summary ---
Demographics + + + | Address | [address] | | | [place] [address] | + + + | Home Phone [...] Samantha Ramos | ECON | [address] | | | | | [place] | | | | | [address] | | + + + + + Care Team Providers + +------+ + | Care Residential Treatment Counselor Name | Role | Phone | + +------+ + | Neri Mojica MD | PCP | | + +------+ + Encounter Details +--------+ + + + + | Date | Type | Department | Care Team | Description | +--------+ + + + + | 10/13/ | Procedure - | Digestive Health | Record, Operation | Operative Report | | 2006 | | [place] at [facility] [address] | | | | | Transcribed | [address] [place] | | | | | | Mailcode: Center | | | | | | for Health and | | | | | | Healing, Building [address] | | | | | | [facility] [place] | | | | | | [address] | | | | | | [phone] | | | +--------+ + + + [...] | 10/13/2006 12:00 AM PST | | [id number] | | [id number] [place] [id number] | | | | Date: 10/13/2006 | | | | Attending Surgeon: Neri Mcgarry M.D., Ph.D. | | | | Tying Machine Operator Lumber(s): Stefano Clements M.D. | | | | [...] Mcgarry M.D., Ph.D. | | | | [facility] / | | [id number] / [id number] / [id number] / [id number] | | | | | | | | | | | | Electronically signed by Neri Mcgarry 10-24-2006 04:46:26 PM | | | | | + + documented in this encounter Visit Diagnoses Not on filedocumented in this encounter"
--- OUTSIDE RECORDS SUMMARY | ~2020-03-21 | XMS | Encounter Summary ---
Demographics + + + | Address | [address] | | | [place] [address] | + + + | Home Phone | | + + + | Preferred Language | Unknown | + + + | Marital Status | Single | + + + | Restoration Affiliation | NON | + + + [...] Samantha Ramos | ECON | [address] | | | | | [place] | | | | | [address] | | + + + + + Care Team Providers + +------+ + | Care Spindle Repairer Name | Role | Phone | [...] | | | | | gastroparesi | [address] [facility] | | | | | | s associated | [address] | | | | | | with type [address] | Rd | | | | | | diabetes | [place], [place] | | | | | | mellitus | [address] | | | | | | ([facility]) | Phone: | | | | | | Procedures | [phone] | | | | | | NM GASTRIC | Fax: | | | | | | EMPTYING | [phone] | | | | | | STUDY [...] | | | | | diabetes | [place], [place] | floor | | | | | mellitus | [address] | [place], [place] | | | | | ([facility]) | Phone: | [phone] | | | | | Procedures | [phone] | Phone: | | | | | CONSULT TO | Fax: | [phone] | | | | | GI PROCEDURE | [phone] | Fax: | | | | | UNIT: EGD | | [phone] | + +--------+ + + + + Encounter Details +--------+ + + + + | Date | Type | Department | Care Team | Description | +--------+ + + + + | 07/04/ | Tree Chipper | Digestive Health | Neri Steven MD | Diabetic | | 2019 | | Center at [facility] [address] | [address] | gastroparesis | | | | [address] [place] [address] | [address] [place], | associated with type | | | | Mailcode: [place] | [place] [address] | 1 diabetes mellitus | | | | for Health and | [phone] | ([facility]) (Primary Dx) | | | | Healing, Building [address] | | | | | | [place], [place] | | | | | | [address] | | | | | | [phone] | | | +--------+ + + + [...] mellitus | | | | | | ([facility]) | | + +---------+--------+ + + documented as of this encounter Visit Diagnoses + + | Diagnosis | + + | Diabetic gastroparesis associated with type 1 diabetes mellitus (HCC) - Primary | + + documented in this encounter"
--- OUTSIDE RECORDS SUMMARY | ~2020-03-21 | XMS | Encounter Summary ---
Demographics + + + | Address | [address] | | | [place] [address] | + + + | Home Phone | | + + + | Preferred Language | Unknown | + + + | Marital Status | Single | + + + | Sabianist Affiliation | Unknown | + + + [...] [address] | | | | | [address] | | + + + + + Care Team Providers + +------+ + | Care Cns Name | Role | Phone | + +------+ + | Emmanuel Saavedra | PCP | | + +------+ + Encounter Details +--------+ + + + + | Date | Type | Department | Care Team | Description | +--------+ + + + + | 03/04/ | Orders Only | [facility] | Winston Whitman MD | Essential | | 2020 | | NEPHROLOGY [place] | [address] [place] | hypertension | | | | [address] [place] | [address] [place], [place] | (Primary Dx); 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[place], [place] | [address] | diabetes mellitus | | | | [address] | | with nephropathy | | | | [phone] | | ([facility]); CKD (chronic | | | | | | kidney disease) | | | | | | stage 4, GFR 15-29 | | | | | | ml/min ([facility]); | | | | | | Nephrotic range | | | | | | proteinuria | +--------+ + + + + Social [...] 2020 | Visit | | [address] [facility] [address] | | | | | | [address] [place] | | | | | | [address] | | | | | | | | +--------+---------+ + + + + +------+--------+ + + | Name | Type | Priori | Associated Diagnoses | Order Schedule | | | | ty | | | + +------+--------+ + + | Basic Metabolic | Lab | Routin | Essential | every 14 days for 2 | | Panel | | e | hypertension Type 1 | Occurrences starting | | | | | diabetes mellitus | 03/04/2020 until | | | | | with nephropathy | 03/04/2021 | | | | | ([facility]) CKD (chronic | | | | | | kidney disease) | | | | | | stage 4, GFR 15-29 | | | | | | ml/min ([facility]) | | | | | | Nephrotic range | | | | | | proteinuria | | + +------+--------+ + + | Renal Function Panel | Lab | Routin | Essential | Expected: | | | | e | hypertension Type 1 | 05/04/2020, Expires: | | | | | diabetes mellitus | 03/04/2021 | | | | | with nephropathy | | | | | | ([facility]) CKD (chronic | | | | | | kidney disease) | | | | | | stage 4, GFR 15-29 | | | | | | ml/min ([facility]) | | | | | | Nephrotic range | | | | | | proteinuria | | + +------+--------+ + + | CBC with | Lab | Routin | Essential | Expected: | | Differential | | e | hypertension Type 1 | 05/04/2020, Expires: | | | | | diabetes mellitus | 03/04/2021 | | | | | with nephropathy | | | | | | ([facility]) CKD (chronic | | | | | | kidney disease) | | | | | | stage 4, GFR 15-29 | | | | | | ml/min ([facility]) | | | | | | Nephrotic range | | | | | | proteinuria | | + +------+--------+ + + | Uric Acid | Lab | Routin | Essential | Expected: | | | | e | hypertension Type 1 | 05/04/2020, Expires: | | | | | diabetes mellitus | 03/04/2021 | | | | | with nephropathy | | | | | | ([facility]) CKD (chronic | | | | | | kidney disease) | | | | | | stage 4, GFR 15-29 | | | | | | ml/min ([facility]) | | | | | | Nephrotic range | | | | | | proteinuria | | + +------+--------+ + + | Urinalysis With | Lab | Routin | Essential | Expected: | | Microscopic | | e | hypertension Type 1 | 05/04/2020, Expires: | | | | | diabetes mellitus | 03/04/2021 | | | | | with nephropathy | | | | | | ([facility]) CKD (chronic | | | | | | kidney disease) | | | | | | stage 4, GFR 15-29 | | | | | | ml/min ([facility]) | | | | | | Nephrotic range | | | | | | proteinuria | | + +------+--------+ + + | Protein/Creatinine | Lab | Routin | Essential | Expected: | | Ratio, Urine | | e | hypertension Type 1 | 05/04/2020, Expires: | | | | | diabetes mellitus | 03/04/2021 | | | | | with nephropathy | | | | | | ([facility]) CKD (chronic | | | | | | kidney disease) | | | | | | stage 4, GFR 15-29 | | | | | | ml/min ([facility]) | | | | | | Nephrotic range | | | | | | proteinuria | | + +------+--------+ + + documented as of this encounter Visit Diagnoses + + | Diagnosis | + + | Essential hypertension - Primary Unspecified essential hypertension | + + | 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
--- OUTSIDE RECORDS SUMMARY | ~2020-03-21 | XMS | Encounter Summary ---
Demographics + + + | Address | [address] | | | [place] [address] | + + + | Home Phone [...] Samantha Ramos | ECON | [address] | | | | | [place] | | | | | [address] | | + + + + + Care Team Providers + +------+ + | Care Dry Kiln Worker Name | Role | Phone | + +------+ + | Jaison Pascual DO | PCP | | + +------+ + Encounter Details +--------+------+ + + + | Date | Type | Department | Care Team | Description | +--------+------+ + + + | 09/15/ | Lab | Laboratory at [facility] | | Type 1 diabetes, | | 2014 | | [address] | | uncontrolled, with | | | | Loop Physician's | | renal manifestation | | | | [place], [address] floor | | ([facility]) | | | | [place], [place] | | | | | | [address] | | | | | | [phone] | | | +--------+------+ + + + [...] | | | LABORATORY | | | [facility] | | | SERVICES, | | | [...] | + + + + + | [facility] | [address] | [place] [address] | | | SERVICES, [facility] | ZENA CROOKS | | | + + + + + documented in this encounter Visit Diagnoses + + | Diagnosis | + + | Type 1 diabetes, uncontrolled, with renal manifestation (HCC) Type I (juvenile type) | | diabetes mellitus with renal manifestations, uncontrolled | + + documented in this encounter"
--- OUTSIDE RECORDS SUMMARY | ~2020-03-21 | XMS | Encounter Summary ---
Demographics + + + | Address | [address] | | | [place] [address] | + + + | Home Phone [...] + + + | Author | [facility] | | | and [place] | + + + | Organization | [facility] | | | and [...] [id number] | | | | | [address] | | + + + + + Care Team Providers + +------+ + | Care Perforator Loader Name | Role | Phone | + [...] | | | | | | | Altered | | | | | | | Mental | | | | | | | Status | | | +--------+--------+ + + + + Encounter Details +--------+ + + + + | Date | Type | Department | Care Team | Description | +--------+ + + + + | 03/09/ | Hospital | [facility] | Allen Barnes, | Acute metabolic | | 2019 - | Encounter | [facility] | [address] | encephalopathy; CKD | | | | [address] [place] | [place] | (chronic kidney | | 03/14/ | | [place] [address] | [id number] | disease) stage 4, | | 2019 | | [phone] | | GFR 15-29 ml/min | | | | | Fidel Bledsoe, | ([facility]LY [facility]); Hypoglycemia; | | | | | [address] | Severe | | | | | [place] | protein-calorie | | | | | [address] | malnutrition ([facility]); | | | | | [phone] | 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 ([facility]); | | | | | | Essential | | | | | | hypertension; | | | | | | Diabetic | | | | | | gastroparesis ([facility]); | | | | | | Epigastric pain; | | | | | | Goals of care, | | | | | | counseling/discussio | | | | | | n; Palliative care | | | | | | by specialist | +--------+ + + + + Social [...] documented as of this encounter Discharge Summaries Fidel Bledsoe MD - 03/14/2020 1:35 PM PDTFormatting of this note might be different f rom the original. DISCHARGE SUMMARY Patient Name: Brooks Marquez : 1990 Date of Admission: 03/09/2020 Date of Discharge: 03/14/2020 Admitting Physician: Allen Barnes MD Discharging Physician: Fidel Bledsoe MD Primary Care Provider: Emmanuel Saavedra Discharge Diagnoses: Active Problems: Acute metabolic encephalopathy Type 1 diabetes mellitus with nephropathy Diabetic gastroparesis CKD (chronic kidney disease) stage 4, GFR 15-29 ml/min Hypoglycemia Severe protein-calorie malnutrition Essential hypertension Resolved Problems: * Acute metabolic encephalopathy. * Patient Active Problem List Diagnosis Right ureteral stone Hyperkalemia Type 1 diabetes mellitus with nephropathy Essential hypertension Marijuana use Current smoker Epigastric pain Diabetic gastroparesis Diabetic ketoacidosis without coma associated with type 1 diabetes mellitus Fissure in skin of foot Hyperglycemia due to type 1 diabetes mellitus Anemia of chronic renal failure, stage 4 (severe) CKD (chronic kidney disease) stage 4, GFR 15-29 ml/min Electrolyte imbalance risk Metabolic acidosis Nephrotic range proteinuria 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 with type 1 diabetes mellitus Chest pain Acute kidney injury superimposed on chronic kidney disease Community acquired pneumonia of right lower lobe of lung Hypernatremia Chronic diarrhea Hypoalbuminemia Acute metabolic encephalopathy Hypoglycemia Severe protein-calorie malnutrition Consultants: n/a Procedures: n/a Reason for Admission: Mental status change Hypoglycemia Problem-Oriented Hospital Course: This is a29 y.o.malewith a history of CKD 4, hypertension, chronic pain syndrome, gas troparesis, 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 Patient went to sleep the night be fore admission and he appeared normal.At a subsequent evaluation approx 2 hours later the pt was unresponsive and rigid without tonic-clonic like movement. No urinary or fecal inco ntinence was noted. No fever or chills reported. Patient has been taking his usual 10 un its of Lantus at night which he continued to take despite poor PO intake during the evening. Patient also takes [place] 2 tablets every 3 hours and pregabalin for his chronic pain synd sharifa. The Pt is routinely followed by the [facility] to assist with his analgesic regimen. EMS was called when Mr Jimmy was found unresponsive. Glucose level on their arrival was fo und to be 45. The patient was given dextrose 50 and was transported to [facility] he remained difficult to arouse. Baseline labs were unremarkable. Patient was then trans ferred to our facility for further eval and treatment. Patient s/p recent admission for left diabetic foot ulcer treated initially with meropenem then ciprofloxacin. Wound culture grew staph epi and Serratia. Patient was discharged on oral ciprofloxacin for total of 7 days. Since admission here w/u has revealed elevated procalcitonin and WBC. Blood cultures have been negative thus far. He does have funguria but otherwise no evidence for bactiuria. He a lso has been experiencing frequent diarrhea, c diff negative. EEG was notable for abnormal tracing consistent with toxic-metabolic encephalopathy but no seizure. Labs otherwise unrem arkable. Today the pt is awake and responsive, seems brighter, speech more fluent. I did discuss wi th mother and this appear to be pts baseline. He continues to have diarrhea requiring frequ ent cleanings. He denies pain, SOB, requesting dc to home. Pt was seen by Palliative Care at request of mother for quality of life issues. No additional problems notable at this ranjit e. Per recommendation of Palliative Care is that pt should be given some "bridging" analgesics but continued management of his pain syndrome by [facility]. Short term rehab has been offered to pt and mother but has been declined. Pt for dc home today. Code Status: Full Code Disposition: Home/self care with assistance of family and private agency Discharge Condition: stable Discharge Medications New Medications Details calcium acetate 667 mg capsule Take 2 capsules (1,334 mg total) by mouth 3 times daily (with meals) aka: PHOSLO cholestyramine light 4 g packet Take 1 packet (4 g total) by mouth 2 times daily aka: QUESTRAN fentaNYL 12 mcg/hr Place 1 patch onto the skin every 72 hours aka: DURAGESIC Start: March 16, 2020 metoprolol tartrate 25 mg tablet Take 1 tablet (25 mg total) by mouth 2 times daily aka: LOPRESSOR Changed Medications Details HYDROcodone-acetaminophen 10-325 mg per tablet Take 1 tablet by mouth Twice daily as needed for Pain What changed: when to take this reasons to take this aka: NORCO insulin glargine 100 units/mL injection (pen) Inject 5 Units under the skin nightly What changed: how much to take aka: LANTUS SOLOSTAR insulin lispro 100 units/mL injection (pen) Inject 0-6 Units under the skin 4 times daily (with meals and nightly) Blood Glucose (BG) < 150: None BG 150-200: DAY: 1 units. NIGHT: 0 units BG 201-250: DAY: 2 units. NIGHT: 1 units BG 251-300: DAY: 3 units. NIGHT: 2 units BG 301-350: DAY: 4 units. NIGHT: 3 un its BG 351-400: DAY: 5 units. NIGHT: 4 units BG > 400 : DAY: 6 units. NIGHT: 5 units and contact PROVIDER What changed: how much to take when to take this additional instructions aka: humaLOG KWIKPEN loperamide 2 mg capsule Take 1 capsule (2 mg total) by mouth every 3 hours as needed for Diarrhea What changed: when to take this aka: IMODIUM Unchanged Medications Details GLUCAGON EMERGENCY 1 MG injection Generic drug: glucagon Inject 1 mg into the muscle once. hyoscyamine 0.[address] 0.125 mg under the tongue every 4 hours as needed for Cramping or Diarrhea. aka: LEVSIN ondansetron 8 mg disintegrating tablet Take 8 mg by mouth 2 times daily. aka: ZOFRAN ODT pregabalin 100 mg capsule Take 100 mg by mouth 3 times daily as needed. For pain aka: LYRICA sertraline 50 mg tablet Take 1 tablet by mouth Daily. aka: ZOLOFT Discontinued Medications BRADEN-SELTZER HEARTBURN PO carvedilol 25 mg tablet aka: COREG furosemide 80 mg tablet aka: LASIX Studies With Pending Results: None Greater than 30 minutes were spent on discharge and coordination of post-hospital care. Electronically signed by: Fidel Bledsoe MD, 03/14/2020 2:10 PM PDT [facility] documented in this encounter Medications at Time of Discharge + + + +---------+ + + | Medication | Sig | Dispensed | Refills | Start | End Date | | | | | | Date | | + + + +---------+ + + | calcium acetate | Take 2 capsules | 180 | 0 | 03/14/20 | | | (PHOSLO) 667 mg | (1,334 mg total) by | capsule | | 20 | | | capsule | mouth 3 times daily | | | | | | | (with meals) | | | | | + + + +---------+ + + | cholestyramine | Take 1 packet (4 g | 60 | 0 | 03/14/20 | | | light (QUESTRAN) 4 g | total) by mouth 2 | packet | | 20 | | | packet | times daily | | | | | + + + +---------+ + + | fentaNYL | Place 1 patch onto | 2 patch | 0 | 03/16/20 | | | (DURAGESIC) 12 | the skin every 72 | | | 20 | | | mcg/hr | hours | | | | | + + + +---------+ + + | GLUCAGON EMERGENCY | Inject 1 mg into the | | 0 | 07/20/20 | | | 1 MG injection | muscle once. | | | 18 | | + + + +---------+ + + | | Take 1 tablet by | 8 | 0 | 03/14/20 | | | HYDROcodone-acetamin | mouth Twice daily | tablet | | 20 | | | ophen (NORCO) 10-325 | as needed for Pain | | | | | | mg [...] + + | insulin glargine | Inject 5 Units under | 30 pen | 0 | 03/14/20 | | | (LANTUS SOLOSTAR) | the skin nightly | | | 20 | | | 100 units/mL | | | | | | | injection (pen) | | | | | | + + + +---------+ + + | insulin lispro | Inject 0-6 Units | 120 pen | 0 | 03/14/20 | | | (HUMALOG KWIKPEN) | under the skin 4 | | | 20 | | | 100 units/mL | times daily (with | | | | | | injection [...] contact PROVIDER | | | | | + + + +---------+ + + | loperamide | Take 1 capsule (2 mg | 30 | 0 | 03/14/20 | | | (IMODIUM) 2 mg | total) by mouth | capsule | | 20 | | | capsule | every 3 hours as | | | | | | | needed for Diarrhea | | | | | + + + +---------+ + + | metoprolol | Take 1 tablet (25 mg | 60 | 0 | 03/14/20 | | | tartrate (LOPRESSOR) | total) by mouth 2 | tablet | | 20 | | | 25 mg tablet | times daily | | | | | + + [...] documented as of this encounter Progress Notes Stephanie Ramirez, PharmD - 03/14/2020 10:04 AM PDT PHARMACY SERVICES: ADMISSION MEDICATION REVIEW Brooks Marquez is a 29 y.o. male admitted on 03/09/2020. Patient is not a reliable historian. Location of Patient when reviewed: MEDICAL FLOOR Patient s prior to admit medication and over the counter (OTC) medications/herbal supplem ents list obtained from: X Verbal interview with mother Samantha who was ABLE TO RECALL ALL name, strength, and direct ions (this person manages his medications) X Patient/family member provided A CURRENT MEDICATION LIST X Doctor's office: Dr. Jim ([facility] - has a pain contract) Dr. Cornelius Hong Pharmacy list names: [facility] Everywhere X Outside Information Vaccines up to date? Influenza No Pneumococcal No Tdap Yes Shingles No Noted medications discrepancies or medication-related issues: Allergy Alerts: Allergy Added: Reaction: Clindamycin Per mother: facial swelling, eyes swelled shut, nausea/vomiting. 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 FEEDER OR OFFBEARER Medication: Prior to Admission Sig: Correct Dosage/Form: Correct Sig: Sodium bicarb-citric acid po Dissolve 1-2 tabs in 4 ounces of water as needed for heartburn Sodium bicarb-citric acid tab 1-2 tabs by mouth daily for heartburn Medication added: Medication: Prior to Admission Sig: Patient taking differently as: Loperamide 2 mg cap 2 mg by mouth four times daily as needed for diarrhea 1-2 caps by jared th twice daily as needed for diarrhea Removed therapy: Medication: Prior to Admission Sig: Reason for Removal: Ciprofloxacin 500 mg tab 1 tab by mouth daily Therapy complete Lisinopril 10 mg tab 5 mg by mouth daily Therapy complete Melatonin 3 mg tab 1 tab by mouth nightly as needed for insomnia Therapy complete Vancomycin 125 mg cap 1 cap by mouth twice daily Therapy complete Recreational Substances, Tobacco & Alcohol use/frequency: X Tobacco: 1 cigarette "all through out the day;" previous history 2 packs per day--cut ba ck 8 months ago Other: Per [facility] records, patient is allergic to benzodiazepines and molindone Patients mother was not sure about these being allergies. These were not added to the [facility] allergy list. Patients mother would like to get a "glucagon inhaler" for the patient. Patients mother states she is concerned about him coming home too soon before he is healed. She would like a prescription for omeprazole for him since ranitidine was recalled. She states he is almost to the point where he will try to leave [place]. She states she knows h e is not medically stable enough to leave in the state he is in. Medication: Prior to Admission Sig: Patient taking differently STITCHING MACHINE FEEDER OR OFFBEARER as: Insulin glargine 100 units/ml inj 10 units under the skin nightly 4 units under the skin nightly due to low blood sugar Patient has an appointment to establish care with a new canceling machine operator Dr. Gary after his canceling machine operator retired. Insulin glargine dosing at the last discharge from here is the most current dosing from hospitalist Dr. Saavedra. Insulin lispro 100 units/ml inj Inject under the skin four times daily before meals and ni ghtly. 1 unit for every 10 carbs Patient's mom states patient uses as needed for blood suga r over 200. Patient has an appointment to establish care with a new canceling machine operator (Dr. Gary) after hi s canceling machine operator retired. Insulin lispro dosing at the last discharge from Dr. Zee in [place] is the most current prescription. Ondansetron 8 mg ODT 8 mg by mouth twice daily 1 tab by mouth 1-2 times daily as needed for nausea/vomiting. Best possible STITCHING MACHINE FEEDER OR OFFBEARER medication list after pharmacy review: PT REPORTED TAKING NOT TAKING Medication Sig Last Dose Dispense Doc. Provider carvedilol (COREG) 25 mg tablet Take 1 tablet by mouth 2 times daily (with breakfast & din ner) for 30 days. Taking 60 tablet Savage Saavedra DO furosemide (LASIX) 80 mg tablet Take 1 tablet by mouth 2 times daily for 30 days. Taking 6 0 tablet Savage Saavedra DO GLUCAGON EMERGENCY 1 MG injection Inject 1 mg into the muscle once. Taking Historical Pro viderMD HYDROcodone-acetaminophen (NORCO) 10-325 mg per tablet Take 1 tablet by mouth 4 times kayleigh y. Taking Historical ProviderMD hyoscyamine (LEVSIN) 0.[address] 0.125 mg under the tongue every 4 hours as n eeded for Cramping or Diarrhea. Taking Historical ProviderMD insulin glargine (LANTUS SOLOSTAR) 100 units/mL injection (pen) Inject 10 Units under the skin nightly. Patient taking differently: Inject 4 Units under the skin nightly Taking Dif ferently 1 pen Savage Saavedra DO insulin lispro (HUMALOG KWIKPEN) 100 units/mL injection (pen) Inject under the skin 4 ranjit es daily (before meals and nightly). 1 unit for every 10 carbs Taking Differently Emmanuel Saavedra loperamide (IMODIUM) 2 mg capsule Take 2 mg by mouth 4 times daily as needed for Diarrhea Taking Differently Historical ProviderMD ondansetron (ZOFRAN ODT) 8 mg disintegrating tablet Take 8 mg by mouth 2 times daily. Troy colunga Differently Historical Provider, pregabalin (LYRICA) 100 mg capsule Take 100 mg by mouth 3 times daily as needed. For pain Taking Emmanuel Saavedra sertraline (ZOLOFT) 50 mg tablet Take 1 tablet by mouth Daily. Taking 30 tablet Savage Saavedra DO Sodium Bicarbonate-Citric Acid (BRADEN-SELTZER HEARTBURN PO) Take 1-2 tablets by mouth Daily Taking Historical Provider, Medication review performed and electronically signed by Analilia Parsons, Outlet Manager 2019 4:09 PM PDT Reviewed by Stephanie Ramirez, PharmDominick 03/14/2020 10:01 AM PDT tillerFidel MD - 03/13/2020 4:01 PM PDTForm atting of this note might be different from the original. HOSPITALIST progress NOTE [facility] 03/13/2020 Rounding Physician: Fidel Bledsoe MD Patient Name: Brooks Marquez : 1990 Medical Record: [id number] Primary Hospital Problem: encephalopathy HPI: This is a 29 y.o. male with a history of CKD 4, hypertension, chronic pain, gastroparesis, type 1 diabetes status post right BKA who presents after being found unresponsive during the morning of the day of admission. Patient went to sleep and the mother checked on him and h e appeared normal at that time. On repeat evaluation 2 hours later after hearing a strange sound the mother found him in his bed. He appeared rigid without tonic-clonic like movement . No urinary or fecal incontinence. Patient was not responding to stimuli at that time. T he mother reports prior to this he was at baseline. No fever or chills. Patient had no p.o . intake on day of admission. Patient has been taking 10 units of Lantus at night which he continued to take. Patient does also takes [place] 2 tablets every 3 hours and pregabalin. E MS was called and the glucose level was found to be 45, patient was given dextrose 50 and wa s transported to [facility] where he remained difficult to arouse. Baseline labs were unremarkable. Patient was then transferred to our facility for further eval and treatment. Patient s/p recent admission for left diabetic foot ulcer treated initially with meropenem then ciprofloxacin. Wound culture grew staph epi and Serratia. Patient was discharged on o ral ciprofloxacin for total of 7 days. Since admission here w/u has revealed elevated procalcitonin and WBC. Blood cultures have been negative thus far. He does have funguria but otherwise no evidence for bactiuria. He a lso has been experiencing frequent diarrhea, c diff negative. EEG was notable for abnormal tracing consistent with toxic-metabolic encephalopathy but no seizure. Lab otherwise unrema rkable. Today the pt is awake and responsive, altho simple halting speech. I did discuss with moth er and this appear to be pts baseline. He continues to have diarrhea requiring frequent kiersten anings. He denies pain, SOB, requesting dc to home. No additional problems notable at this time. OBJECTIVE DATA VITAL SIGNS: BP (!) 158/110 Comment: Notified to the RN. | Pulse 79 | Temp 35.6 C (96 F) (Oral) | Resp 16 | Wt 67.4 kg (148 lb 9.4 oz) | SpO2 100% | BMI 19.08 kg/m Vital sign ranges for last 24hrs: Input and output for last 24hrs: Temp: [35.6 C (96 F)-36.2 C (97.2 F)] 35.6 C (96 F) Pulse: [79-92] 79 Resp: [12-16] 16 BP: (150-182)/(68-110) 158/110 SpO2 Av % Min: 100 % Max: 100 % 03/11 1901 - 03/13 0700 In: 1466 [P.O.:1416] Out: 875 [Urine:875] Admit Weight: Weight: 61 kg (134 lb 7.7 oz) Current weight: Weight: 67.4 kg (148 lb 9.4 oz) Intake/Output Summary (Last 24 hours) at 03/13/2020 1601 Last data filed at 03/13/2020 1422 Gross per 24 hour Intake 1385 ml Output 500 ml Net 885 ml MEDICATIONS: Scheduled Meds: calcium acetate 1,334 mg Oral TID WC cholestyramine light 4 g Oral BID fentaNYL 1 patch Transdermal Q72H heparin 5,000 Units Subcutaneous 2 times per day insulin glargine 5 Units Subcutaneous Nightly insulin lispro 0-6 Units Subcutaneous 4x Daily WC and HS metoprolol tartrate 25 mg Oral BID miconazole Topical BID sertraline 50 mg Oral Daily Continuous Infusions: dextrose 10% PRN Meds:acetaminophen, acetaminophen, Hypoglycemia Management AND POCT Glucose AND dextrose AND dextrose 10%, docusate sodium, hydrALAZINE, HYDROcodone-acetaminophen, lop eramide, metoprolol tartrate, ondansetron, polyethylene glycol PHYSICAL EXAMINATION: GENERAL: WD, thin, ill appearing but in no distress HEENT: Pupils equal, conjugate gaze, no icterus; poor dentition NECK: Supple. No adenopathy or JVD CHEST: Respiratory effort is unlabored. Clear to auscultation ant-lat lung hassan CARDIAC: Reg rate and rhythm without appreciable murmur, rub or gallop. ABDOMEN: Soft, non-tender, no masses or hepatomegaly EXTREMITIES: s/p (R) BKA, skin dry, no edema or obvious lesion NEUROLOGIC: Awake, responsive, KOENIG, slow, fluent speech, able to follow simple commands DIAGNOSTICS: Labs: Lab Results Component Value Date CREA 4.25 (H) 03/13/2020 BUN 60 (H) 03/13/2020 NA 141 03/13/2020 K 4.2 03/13/2020 CL 110 (H) 03/13/2020 CO2 22 03/13/2020 Lab Results Component Value Date WBC 13.3 (H) 03/11/2020 HCT 29.2 (L) 03/11/2020 MCV 93.3 03/11/2020 LABPLAT 326 02/27/2020 PLT 256 03/11/2020 Lab Results Component Value Date TROPONIN 0.01 01/06/2020 Lab Results Component Value Date INR 1.1 03/09/2020 INR 1.3 (H) 02/18/2020 PROTIME 14.7 (H) 03/09/2020 PROTIME 17.2 (H) 02/18/2020 ASSESSMENT AND PLAN 29yo found unresponsive, hypoglycemic, admitted with apparent toxic metabolic encephalopath y, possible hypoglycemic encephalopathy. Per review of med records pt appears to be more al ert at this timea dn based on discussion with pt's mother, he may, in fact, be back at [facility].. He reportedly is known to nephrology service but routinely followed at outside facili ty. 1. Acute metabolic encephalopathy Slowly improving but remains encephalopathic, altho this may be his baseline. Spinal fluid was unremarkable. EEG with no seizure activity. Head CT not show acute change. No obvious infection source other than his abnormal appearing urine, funguria, expected in setting of glucosuria. The most likely working diagnosis is a hypoglycemic encephalopathy with a possible signific ant period of time hypoglycemia/hypoxia. When found by paramedics his O2 saturation was 80% with a blood sugar 45. Now rm air SpO2 is wnl. Remains on low dose transdermal fentanyl (12 mcg) for chronic pain syndrome; per mother pt will require re-start of his sertraline at dose of 50mg daily. 2. Diabetes mellitus Patient has been on D5LR, now tolerating PO. Will stop IVF. Acceptable glucose control on l ow dose insulin. Continuing to follow. 3. Acute kidney disease, stage IV with mild hyperkalemia Stable parameters; per d/w Dr Murrell, pt and family with poor insight into his disease al tho again, per mom, pt/family anticipating dialysis (PD?) soon. Elevated phos noted, contin ue PhosLo. 4. Possible urinary tract infection Urine is abnormal, positive only for funguria. Review of records from [place] does not s uggest that he received antibiotic therapy prior to our culture here. He was treated with v ancomycin because of chronic diarrhea altho C diff negative. X-ray today does not show infi ltrates and CT chest abdomen and pelvis did not show source for infection; his abd exam is b enign, continuing to monitor. Procalcitonin also signif elevated. Has been on meropenem si nce admit. In absence of documented infection, will dc. Lactate remains wnl. Doubt sepsis, normal lactate, elevated BP's. Nothing clinically to suggest sepsis. 5. FEN Per bedside nurse, PO intake improving. Dc IVF; seen by Nutrition Service; (+) severe prot ein calorie malnutrition. I attest that this clinical assessment using ASPEN criteria 1 is accurate for this patient and supports that as a medical diagnosis. A specific nutrition treatment plan will be imple mented as outlined in the registered dietitian's plan of care. Nutrition Diagnosis: Severe protein-calorie malnutrition Type, Severe: Chronic illness Weight Loss: Greater than 7.5% in 3 months Energy Intake: Other (see comment) (NPO at this time) Body Fat: Severe depletion Muscle Mass: Severe depletion Recommendations per Nutrition Service. 6. CVS Pt remains hypertensive altho a bit better today On PRN hydralazine Trial of PO antihypertensive meds when more alert. 7. GI Exam benign, continuing diarrhea Trial of cholestyramine to continue 8. Dispo Clinically stable Will continue to monitor; likely discharge 24-48hrs if pt remains stable Electronically signed by: Fidel Bledsoe MD, DATE/TIME: 03/13/2020 4:01 PM PDT [facility] HOSPITALIST TEAMElectronically signed by Fidel Bledsoe MD at 020 4:09 PM PDTStiller, Fidel North MD - 03/12/2020 7:22 AM PDT HOSPITALIST progress NOTE [facility] 03/12/2020 Rounding Physician: Fidel Bledsoe MD Patient Name: Brooks Marquez : 1990 Medical Record: [id number] Primary Hospital Problem: encephalopathy HPI: This is a 29 y.o. male with a history of CKD 4, hypertension, chronic pain, gastroparesis, type 1 diabetes status post right BKA who presents after being found unresponsive during the morning of the day of admission. Patient went to sleep and the mother checked on him and h e appeared normal at that time. On repeat evaluation 2 hours later after hearing a strange sound the mother found him in his bed. He appeared rigid without tonic-clonic like movement . No urinary or fecal incontinence. Patient was not responding to stimuli at that time. T he mother reports prior to this he was at baseline. No fever or chills. Patient had no p.o . intake on day of admission. Patient has been taking 10 units of Lantus at night which he continued to take. Patient does also takes [place] 2 tablets every 3 hours and pregabalin. E MS was called and the glucose level was found to be 45, patient was given dextrose 50 and wa s transported to [facility] where he remained difficult to arouse. Baseline labs were unremarkable. Patient was then transferred to our facility for further eval and treatment. Patient s/p recent admission for left diabetic foot ulcer treated initially with meropenem then ciprofloxacin. Wound culture grew staph epi and Serratia. Patient was discharged on o ral ciprofloxacin for total of 7 days. Since admission here w/u has revealed elevated procalcitonin and WBC. Blood cultures have been negative thus far. He does have funguria but otherwise no evidence for bactiuria. He a lso has been experiencing frequent diarrhea, c diff negative. EEG was notable for abnormal tracing consistent with toxic-metabolic encephalopathy but no seizure. Lab otherwise unrema rkable. Today the pt is awake and responsive, altho simple slow speech; he is also able to follow s imple commands. He denies pain, SOB, requesting dc to home. No additional problems notable at this time. OBJECTIVE DATA VITAL SIGNS: BP 158/56 | Pulse 105 | Temp 36.1 C (97 F) (Temporal) | Resp 12 | Wt 6 7.4 kg (148 lb 9.4 oz) | SpO2 100% | BMI 19.08 kg/m Vital sign ranges for last 24hrs: Input and output for last 24hrs: Temp: [35.5 C (95.9 F)-36.1 C (97 F)] 36.1 C (97 F) Pulse: [86-109] 105 Resp: [8-21] 12 BP: (140-158)/(56-75) 158/56 SpO2 Av.7 % Min: 97 % Max: 100 % 03/10 1901 - 03/12 0700 In: 4294.7 [P.O.:662; I.V.:3582.7] Out: 775 [Urine:775] Admit Weight: Weight: 61 kg (134 lb 7.7 oz) Current weight: Weight: 67.4 kg (148 lb 9.4 oz) Intake/Output Summary (Last 24 hours) at 03/12/2020 0722 Last data filed at 03/12/2020 0615 Gross per 24 hour Intake 1727 ml Output 525 ml Net 1202 ml MEDICATIONS: Scheduled Meds: calcium acetate 1,334 mg Oral TID WC cholestyramine light 4 g Oral BID fentaNYL 1 patch Transdermal Q72H heparin 5,000 Units Subcutaneous 2 times per day insulin glargine 6 Units Subcutaneous Nightly insulin lispro 0-6 Units Subcutaneous 4x Daily WC and HS meropenem 500 mg Intravenous Q12H metoprolol tartrate 25 mg Oral BID miconazole Topical BID Continuous Infusions: dextrose 10% dextrose 5% lactated ringers 100 mL/hr at 03/11/202024 PRN Meds:acetaminophen, acetaminophen, calcium carbonate, Hypoglycemia Management AND P OCT Glucose AND dextrose AND dextrose 10%, docusate sodium, hydrALAZINE, labetalol, loperamide, metoprolol tartrate, ondansetron, polyethylene glycol PHYSICAL EXAMINATION: GENERAL: WD, thin, ill appearing but in no distress HEENT: Pupils equal, conjugate gaze, no icterus; poor dentition NECK: Supple. No adenopathy or JVD CHEST: Respiratory effort is unlabored. Clear to auscultation ant-lat lung hassan CARDIAC: Reg rate and rhythm without appreciable murmur, rub or gallop. ABDOMEN: Soft, non-tender, no masses or hepatomegaly EXTREMITIES: s/p (R) BKA, skin dry, no edema or obvious lesion NEUROLOGIC: Awake, responsive, KOENIG, slow, fluent speech, able to follow simple commands DIAGNOSTICS: Labs: Lab Results Component Value Date CREA 4.35 (H) 03/12/2020 BUN 62 (H) 03/12/2020 NA 143 03/12/2020 K 3.9 03/12/2020 CL 110 (H) 03/12/2020 CO2 24 03/12/2020 Lab Results Component Value Date WBC 13.3 (H) 03/11/2020 HCT 29.2 (L) 03/11/2020 MCV 93.3 03/11/2020 LABPLAT 326 02/27/2020 PLT 256 03/11/2020 Lab Results Component Value Date TROPONIN 0.01 01/06/2020 Lab Results Component Value Date INR 1.1 03/09/2020 INR 1.3 (H) 02/18/2020 PROTIME 14.7 (H) 03/09/2020 PROTIME 17.2 (H) 02/18/2020 ASSESSMENT AND PLAN 29yo found unresponsive, hypoglycemic, now admitted with apparent toxic metabolic encephalo clover, possible hypoglycemic encephalopathy. Per review of med records pt appears to be mor e alert at this time. He reportedly is known to nephrology service but routinely followed a t outside facility. 1. Acute metabolic encephalopathy, severe Slowly improving but remains encephalopathic, baseline MS unclear. Spinal fluid was unrema rkable. EEG with no seizure activity. Head CT not show acute change. No obvious infection source other than his abnormal appearing urine, funguria, expected in setting of glucosuria. The most likely working diagnosis is a hypoglycemic encephalopathy with a possible signific ant period of time hypoglycemia/hypoxia. When found by paramedics his O2 saturation was 80% with a blood sugar 45. Now rm air SpO2 is wnl. Remains on low dose transdermal fentanyl (12 mcg) for chronic pain syndrome; avoid addition al sedating meds 2. Diabetes mellitus Patient has been on D5LR, now tolerating PO. Will stop IVF. Acceptable glucose control on l ow dose insulin. Continuing to follow glucose. 3. Acute kidney disease, stage IV with mild hyperkalemia Stable parameters; per d/w Dr Murrell, pt and family with poor insight into his disease. Currently not a dialysis candidate. Elevated phos noted, to start PhosLo. 4. Possible urinary tract infection Urine is abnormal, positive only for funguria. Review of records from [place] does not s uggest that he received antibiotic therapy prior to our culture here. He was treated with v ancomycin because of chronic diarrhea altho C diff negative. X-ray today does not show infi ltrates and CT chest abdomen and pelvis did not show source for infection; his abd exam is b enign, continuing to monitor. Procalcitonin also signif elevated. Has been on meropenem si nce admit. In absence of documented infection, will dc. Lactate remains wnl. Doubt sepsis, normal lactate, elevated BP's. Nothing clinically to suggest sepsis. 5. FEN Per bedside nurse, PO intake improving. Dc IVF; seen by Nutrition Service; (+) severe prot ein calorie malnutrition. I attest that this clinical assessment using ASPEN criteria 1 is accurate for this patient and supports that as a medical diagnosis. A specific nutrition treatment plan will be imple mented as outlined in the registered dietitian's plan of care. Nutrition Diagnosis: Severe protein-calorie malnutrition Type, Severe: Chronic illness Weight Loss: Greater than 7.5% in 3 months Energy Intake: Other (see comment) (NPO at this time) Body Fat: Severe depletion Muscle Mass: Severe depletion Recommendations per Nutrition Service. 6. CVS Pt remains hypertensive altho a bit better today On PRN hydralazine Trial of PO antihypertensive meds when more alert. 7. GI Exam benign, refractory diarrhea Trial of cholestyramine 8. Dispo Clinically stable For transfer to [facility] Electronically signed by: Fidel Bledsoe MD, DATE/TIME: 03/12/2020 7:22 AM PDT [facility] HOSPITALIST TEAMElectronically signed by Fidel Bledsoe MD at 020 8:46 AM PDTRita Ellsworth RN - 03/10/2020 9:37 AM PDTVascular Access Team No te- Following Infusion Nurses Society standards of care; 18 gauge 8cm length BARD PowerGlide Pr o midline catheter placed x 1 stick with ultrasound guidance. Catheter inserted to 7cm with 1 cm external. Draws bright red blood briskly, flushes easily with normal saline. Sterile dr essing applied. Of note, pt skin is very dry/flaky and dressing is not sticking well to skin at 7 o'clock position. Gentle range of motion is encouraged with nurse d/t pt with small ve ssels and risk for clotting. Pt has multiple small collateral circulation vessels in RIGHT u pper arm. Report to ANNETTE Tena who continues care. Thank you for this referral. Electronically signed by: Rita Ellsworth RN 03/10/2020 9:37 AM PDT avon Faust MD - 03/10/2020 7:34 AM PDT [facility] PMG Hospitalist Progress Note Brooks Marquez is a 29 y.o. male ASSESSMENT and PLAN: 1. Acute metabolic encephalopathy, severe Patient this a.m. is following directions better and making eye contact when I talk with hi m. He remains encephalopathic in affect with nonpurposeful groaning and movements but when I yell out his name he turns his head toward me. Spinal fluid was unremarkable. EEG failed to show your activity and was abnormal with encephalopathy. Head CT not show ac mike change. Patient has leukocytosis today with a white count of 17,000 and a rising procal citonin but no obvious infection source other than his abnormal appearing urine. The most likely working diagnosis is a hypoglycemic seizure with a possible significant per iod of time hypoglycemia/hypoxia. When he was found by paramedics his O2 saturation was 80% with a blood sugar 45. Here on room air his saturations have consistently been 100% may hooper ve had some obstruction of airway initially causing hypoxia Consider MRI imaging albeit currently his level of alertness would require sedation. 2. Diabetes mellitus Patient is on D5 solution and 100 cc/h. Blood sugar is improved. He is a type I diabetic and has not required insulin and his anion gap has increased today. Going to obtain a beta hydroxybutyrate and may need to give a low dose of insulin. If the Beta hydroxybutyrate is normal consider repeating his lactic acid which was 0.9 yesterday. His abdominal exam does not suggest significant problems i.e. relatively soft and good bowel sounds. 3. Acute kidney disease, stage IV with mild hyperkalemia On a bicarb infusion with rising blood sodium. Will change to half-normal bicarb solution 100 cc/h. 4. Sepsis with probable urinary tract infection Urine is abnormal but thus far no growth. Review of records from [place] does not sugges t that he received antibiotic therapy prior to our culture being set up. Patient recently h ad a positive PCR for C. difficile but toxin negative on last admission. He was treated wit h vancomycin because of chronic diarrhea. X-ray today does not show infiltrates and CT ches t abdomen and pelvis did not show source for infection but white count remains at 17,000 and procalcitonin has risen from 4.23 to 39.38. He has developed an anion gap of 14 with this a.m.'s blood work. His abdominal exam does not suggest ischemia as a source i.e. his belly is soft and bowel sounds are noted. His beta hydroxybutyrate is not elevated to explain his anion gap and I am going to eat his BMP with a lactic acid. This a.m. we will repeat blood cultures and meropenem. Repeat a procalcitonin in 12 hours. SUBJECTIVE: Patient speaking incoherently making eye contact when you call his name representing an imp rovement from yesterday. VITALS: Temp: 35.8 C (96.4 F), Pulse: 92, Resp: 13, BP: (!) 160/96, SpO2 100 % on room air at f low rate L/min Temp Min: 35.8 C (96.4 F) Max: 37.2 C (99 F) Weight: 61 kg (134 lb 7.7 oz) Intake/Output Summary (Last 24 hours) at 03/10/2020 0734 Last data filed at 03/10/2020 0602 Gross per 24 hour Intake 2053 ml Output 675 ml Net 1378 ml PHYSICAL EXAM: General: Agitated incoherent male Cardiovascular: regular rate and rhythm Respiratory: Clear bilaterally Abdomen: Without tenderness with normoactive bowel sounds Extremities: 1+ edema with BK amputation Skin: Neurological: More recognition to his voice. He is following a nursing commands to some ex tent. These are both new findings today. DIAGNOSTIC STUDIES: Available data and images were reviewed personally. Significant results and findings are a ddressed here or in the Assessment and Plan. Lab Results Component Value Date HGB 10.1 (L) 03/10/2020 HCT 31.8 (L) 03/10/2020 LABPLAT 326 02/27/2020 PLT 290 03/10/2020 WBC 17.2 (H) 03/10/2020 Lab Results Component Value Date NA 148 (H) 03/10/2020 K 4.5 03/10/2020 CL 113 (H) 03/10/2020 CO2 21 03/10/2020 CREA 4.52 (H) 03/10/2020 BUN 62 (H) 03/10/2020 MG 1.8 03/10/2020 PHOS 8.6 (HH) 03/10/2020 CRP 51.60 (H) 02/21/2020 ESR 28 (H) 02/18/2020 BNP 273 (H) 03/10/2020 Glucose, POC Date/Time Value Ref Range Status 03/09/2020 09:27 PM 204 (H) 70 - 109 mg/dL Final 03/09/2020 03:30 PM 149 (H) 70 - 109 mg/dL Final 03/09/2020 11:50 AM 107 70 - 109 mg/dL Final Glucose, POC Date/Time Value Ref Range Status 03/09/2020 09:27 PM 204 (H) 70 - 109 mg/dL Final 03/09/2020 03:30 PM 149 (H) 70 - 109 mg/dL Final 03/09/2020 11:50 AM 107 70 - 109 mg/dL Final Ct Chest Abdomen Pelvis Wo Contrast Result Date: 03/09/2020 CT CHEST ABDOMEN AND PELVIS WITHOUT CONTRAST CLINICAL INFORMATION: Found down. COMPARISON: XR CHEST AP PORTABLE (02/19/2020); XR CHEST AP PORTABLE (02/16/2020); CT CHEST ABDOMEN PELVIS WO CONTRAST (01/06/2020); PROCEDURE: Axial images through the chest, abdomen and pelvis. Mult iplanar reconstructions. At least one of the following CT dose optimization techniques were used: Automated exposure control; Adjustment of mA and/or kV according to patient size; Use of iterative reconstruction technique. FINDINGS: Small bilateral pleural effusions with kvng cent atelectasis. Trachea and central bronchi are patent. No evidence of pneumothorax. The h eart is normal in size. Extensive anasarca throughout all visualized soft tissues. No acute osseous findings. No evidence for lymphadenopathy. Abnormality involving the liver or pancre as. No suspicious splenic or adrenal gland pathology. Dependent calcified gallstones in the gallbladder. Punctate nonobstructive renal calculi are seen bilaterally. No evidence of hydr onephrosis or hydroureter. Extensive anasarca throughout the abdominal wall soft tissues. Ca lcifications in the anterior abdominal wall likely related to remote injection granulomas. U rinary bladder contains air and is decompressed by Camarena catheter. Prostate gland is not wel l visualized. Mild bilateral hip osteoarthritis. No acute osseous abnormality identified. IM PRESSION- 1. Minimal dependent atelectasis in both lower lobes. No acute airspace disease. Small bilateral pleural effusions. No pneumothorax. 2. Small amount of pelvic and right alexis hepatic ascites. 3. Cholelithiasis without gallbladder wall thickening demonstrated. No def inite biliary dilation. 4. Stable bilateral nonobstructive nephrolithiasis, left greater melanie n right. Camarena catheter balloon within the bladder. 5. No bowel dilation. 6. Diffuse anasarc a throughout the chest, abdomen, and pelvic soft tissues compatible with extensive fluid ove rload. A preliminary report was sent without significant discrepancy. Dictated and Signed by : Abdirizak Dorantes MD Electronically signed: 03/09/2020 3:[address] Foot Left Wo Contrast Result Date: 03/09/2020 CT LEFT FOOT CLINICAL INFORMATION: Found down. COMPARISON: MRI FOOT LEFT WO CONTRAST (2019); PROCEDURE: Volume CT acquisition with multiplanar reconstructions. At least one of e following CT dose optimization techniques were used: Automated exposure control; Adjustmen t of mA and/or kV according to patient size; Use of iterative reconstruction technique. FIND INGS: See below IMPRESSION- 1. There is subtle cortical irregularity involving the most dis liyah aspect of the amputation defect at the mid shaft of the fifth metatarsal, cannot entirel y exclude osteoarthritis at this one location with scanning soft tissue swelling; however, t his may represent postsurgical changes. Otherwise, no other osteolysis or periosteal reactio n to suggest acute osteomyelitis. -Consider MRI for further evaluation as clinically needed, although there was a recent MRI dated 02/18/2027 left resident significant interval changes, no MRI is needed. 2. No gas within the soft tissues. 3. Amputation of the 5th digit at the proximal 5th metatarsal diaphysis. 4. Patient movement artifact prevents evaluation of the p halanges. 5. Diffuse osteopenia. Severe atherosclerosis throughout all vasculature. Severe m yositis or diabetic related neuropathy with fatty atrophy of all musculature. A preliminary report was sent without significant discrepancy. Dictated and Signed by: Abdirizak Dorantes MD Electronically signed: 03/09/2020 10:45 AM Total time of approximately 45 minutes was spent with the patient and/or patient's family, and/or on the patient's floor/unit, of which more than 50% was spent counseling and/or coord ination the patient's care as outlined above. Javon Faust MD 03/10/2020 7:34 AM PDT [facility] Portions of this chart may have been created with [employer] voice recognition software. Occasi onal wrong-word or sound-alike substitutions may have occurred due to the inherent lin itations of voice recognition software. Please read the chart carefully and recognize, using context, where these substitutions have occurred Santana Stone RN - 03/09/2020 11:43 AM PDTPt continues to be nonverbal and not follow directions well. Foam shawn ssing to coccyx and foot. Camarena cath draining cloudy yellow urine. 1 person assist. Pt NPO r /t LOC. Pt transferred up to ICU around 1130 for closer monitoring. Report given to RN. Elec tronically signed by Santana Francisco RN at 03/09/2020 11:46 AM Javon Dong MD - 03/09 10:53 AM PDT [facility] PMG Hospitalist Progress Note Brooks Mraquez is a 29 y.o. male ASSESSMENT and PLAN: 1. Acute metabolic encephalopathy, severe Patient on examination this morning was his arms in flexion and moaning and complaining non sensically. His eyes they were 2 to 3 mm and reactive to light. There was a minimal amount of roving associated with these. When I can get the patient to calm down however able to m rylie statements like I need to sleep. His mother reports he does stay awake at night and sle eps during the day. Stated that this represents a marked reduction in functional status fro m when he was seen in January here. Patient had a negative head CT at [facility] and his urine d oes appear to have infection. The risk of encephalitis or partial complex seizures EEG was obtained which does not show seizure activity but is abnormal with encephalopathy. Lumbar p uncture was performed and sent for routine studies plus HSV PCR, varicella-zoster PCR, and W est Nile virus assessment. Initial spinal fluid tests are normal and with a presumed sourc e I am not going to start acyclovir at this point noting potential for increased toxicity be cause of severe renal impairment. Should he have any further deterioration then I would con merchandiser initiating this therapy. This evening at around 6 PM the nursing staff was told by th e patient's mother that he takes 10 mg hydrocodone's, 2 pills every 4 hours. Our records on review of the database from [place] and [place] suggest he has 10 mg pills, 1 4 times ahmet ly, getting 112 pills every 28 days and that this is been ongoing for many years. He curren tly cannot safely swallow and I will put him since is in the ICU on 25 mcg fentanyl patch bu t will stop any IV lorazepam which had been given earlier prior to lumbar puncture. Continu e patient on ceftriaxone 2 grams daily. In discussion with the patient's mother was normal yesterday in the morning. At 2:30 she h eard an unusual sound by report and found him unresponsive and called paramedics. When they arrived blood sugar was 45. Subsequently treated without awakening. Given the sudden kat ge in status per the mother's story the working diagnosis is a hypoglycemic seizure patient down for an indeterminate time. His O2 saturation somewhat supports this and that he was 80 % when found by paramedics and currently on room air is fine. 2. Diabetes mellitus Patient is on D5 bicarbonate drip maintaining blood sugars throughout the day. 3. Acute kidney disease, stage IV with mild hyperkalemia At this point patient would require Kayexalate per rectum or NG placement with Kayexalate. He was placed on a bicarbonate drip to hopefully avoid this noting his bicarbonate on pres entation was 20 with a hyperchloremic metabolic acidosis. Noting his CT showing diffuse camryn sarca and small bilateral effusions I am going to give a dose of 80 mg of IV milligrams of I V furosemide 4. Probable urinary tract infection She has pyuria with a procalcitonin of 4.23. He had a CT scan of his chest abdomen and pel vis in the emergency room and did not have findings of infection. The patient's oral dentit ion is awful with erythema on his gums this would also be covered while by ceftriaxone.. SUBJECTIVE: Patient speaking incoherently VITALS: Temp: 35.9 C (96.7 F), Pulse: 113, Resp: 16, BP: (!) 165/115, SpO2 97 % on at flow ra te L/min Temp Min: 35.9 C (96.7 F) Max: 35.9 C (96.7 F) Weight: 61 kg (134 lb 7.7 oz) Intake/Output Summary (Last 24 hours) at 03/09/2020 1111 Last data filed at 03/09/2020 0955 Gross per 24 hour Intake 484 ml Output 200 ml Net 284 ml PHYSICAL EXAM: General: Agitated incoherent male Cardiovascular: Giller rate and rhythm Respiratory: There are bilaterally Abdomen: Without tenderness with hypoactive bowel sounds Extremities: 1+ edema with BK amputation Skin: Neurological: Pupils 2 to 3 mm with minimal roving when he is quiet. Otherwise easily agit ated and crying out. DIAGNOSTIC STUDIES: Available data and images were reviewed personally. Significant results and findings are a ddressed here or in the Assessment and Plan. Lab Results Component Value Date HGB 11.4 (L) 03/09/2020 HCT 36.3 (L) 03/09/2020 LABPLAT 326 02/27/2020 PLT 191 03/09/2020 WBC 16.9 (H) 03/09/2020 Lab Results Component Value Date NA 144 03/09/2020 K 5.0 03/09/2020 CL 116 (H) 03/09/2020 CO2 20 03/09/2020 CREA 4.67 (H) 03/09/2020 BUN 57 (H) 03/09/2020 MG 1.8 03/09/2020 PHOS 7.7 (H) 03/09/2020 CRP 51.60 (H) 02/21/2020 ESR 28 (H) 02/18/2020 BNP 229 (H) 02/19/2020 Glucose, POC Date/Time Value Ref Range Status 03/09/2020 07:09 AM 118 (H) 70 - 109 mg/dL Final 03/09/2020 12:37 AM 182 (H) 70 - 109 mg/dL Final 02/21/2020 12:48 PM 148 (H) 70 - 109 mg/dL Final Glucose, POC Date/Time Value Ref Range Status 03/09/2020 07:09 AM 118 (H) 70 - 109 mg/dL Final 03/09/2020 12:37 AM 182 (H) 70 - 109 mg/dL Final 02/21/2020 12:48 PM 148 (H) 70 - 109 mg/dL Final Ct Chest Abdomen Pelvis Wo Contrast Result Date: 03/09/2020 CT CHEST ABDOMEN AND PELVIS WITHOUT CONTRAST CLINICAL INFORMATION: Found down. COMPARISON: XR CHEST AP PORTABLE (02/19/2020); XR CHEST AP PORTABLE (02/16/2020); CT CHEST ABDOMEN PELVIS WO CONTRAST (01/06/2020); PROCEDURE: Axial images through the chest, abdomen and pelvis. Mult iplanar reconstructions. At least one of the following CT dose optimization techniques were used: Automated exposure control; Adjustment of mA and/or kV according to patient size; Use of iterative reconstruction technique. FINDINGS: See preliminary impression below. Report se nt:03/09/2020 5:40:30 AM 1. Minimal dependent atelectasis in both lower lobes. No acute airspace disease. Small le ft pleural effusion. Trace right pleural effusion. No pneumothorax. 2. Small amount of pel russ and right perihepatic ascites. 3. Cholelithiasis without gallbladder wall thickening dem onstrated. No definite biliary dilation. 4. Stable bilateral nonobstructive nephrolithiasis , left greater than right. Camarena catheter balloon within the bladder. 5. No bowel dilation. Signed by: Ron Cardenas, Celso Sign Date/Time: 03/09/2020 5:[address] Foot Left Wo Contrast Result Date: 03/09/2020 CT LEFT FOOT CLINICAL INFORMATION: Found down. COMPARISON: MRI FOOT LEFT WO CONTRAST (2019); PROCEDURE: Volume CT acquisition with multiplanar reconstructions. At least one of th e following CT dose optimization techniques were used: Automated exposure control; Adjustmen t of mA and/or kV according to patient size; Use of iterative reconstruction technique. FIND INGS: See below IMPRESSION- 1. There is subtle cortical irregularity involving the most dis liyah aspect of the amputation defect at the mid shaft of the fifth metatarsal, cannot entirel y exclude osteoarthritis at this one location with scanning soft tissue swelling; however, t his may represent postsurgical changes. Otherwise, no other osteolysis or periosteal reactio n to suggest acute osteomyelitis. -Consider MRI for further evaluation as clinically needed, although there was a recent MRI dated 02/18/2027 left resident significant interval changes, no MRI is needed. 2. No gas within the soft tissues. 3. Amputation of the 5th digit at the proximal 5th metatarsal diaphysis. 4. Patient movement artifact prevents evaluation of the p halanges. 5. Diffuse osteopenia. Severe atherosclerosis throughout all vasculature. Severe m yositis or diabetic related neuropathy with fatty atrophy of all musculature. A preliminary report was sent without significant discrepancy. Dictated and Signed by: Abdirizak Dorantes MD Electronically signed: 03/09/2020 10:45 AM Total time of approximately 50 minutes was spent with the patient and/or patient's family, and/or on the patient's floor/unit, of which more than 50% was spent counseling and/or coord ination the patient's care as outlined above. Javon Faust MD 03/09/2020 11:11 AM PDT [facility] Portions of this chart may have been created with TXCOM voice recognition software. Occasi onal wrong-word or sound-alike substitutions may have occurred due to the inherent lin itations of voice recognition software. Please read the chart carefully and recognize, using context, where these substitutions have occurred Antonino Ferrara RN - 0 03/09/2020 4:[address] via bed at 0400, reportedly was very restless during CT and requ ired securing to prevent falling 4: 35 AM Antonino Ferrara RN - 03/09/2020 12:39 AM PDTArrived to room [facility] Sliding transfer to bed. Restless/crying/moaning. Not following directions. Prefers to lie on rt side. Excoriated sacral area. Dressing removed from lt foot shows chron ic wound currently dry. Skin dry/flaky/scaley documented in this enc ounter H&P Notes Fidel Bledsoe MD - 03/11/2020 7:47 AM PDTFormatting of this note might be different f rom the original. HOSPITALIST progress NOTE [facility] 03/11/2020 Rounding Physician: Fidel Bledsoe MD Patient Name: Brooks Marquez : 1990 Medical Record: [id number] Primary Hospital Problem: encephalopathy HPI: This is a 29 y.o. male with a history of CKD 4, hypertension, chronic pain, gastroparesis, type 1 diabetes status post right BKA who presents after being found down. At 9:30 in the m orning. Patient went to sleep and the mother checked on him and he appeared normal at that time. On repeat evaluation 2 hours later after hearing a strange sound the mother found him in his bed. He appeared rigid without tonic-clonic like movement. No urinary or fecal inc ontinence. Patient was not responding to stimuli at that time. The mother reports prior to this he was at baseline. No fever or chills. Patient had no p.o. intake on day of admissi on. Patient has been taking 10 units of Lantus at night which he continued to take. Shon henderson does also takes [place] 2 tablets every 3 hours and pregabalin. EMS was called and the gluc ose level was found to be 45, patient was given dextrose 50 and was transported to [facility] where he remained difficult to arouse. Baseline labs were unremarkable. Patient was transferred to our facility for further eval and treatment. Patient s/p recent admission for left diabetic foot ulcer treated initially with meropenem then ciprofloxacin. Wound culture grew staph epi and Serratia. Patient was discharged on o ral ciprofloxacin for total of 7 days. Since admission w/u has revealed and elevated procalcitonin and WBC. His blood cultures hooper ve been negative thus far. He does have funguria but otherwise no evidence for bactiuria. EEG was notable for abnormal tracing consistent with toxic-metabolic encephalopathy but no s eizure. Lab otherwise unremarkable. Today the pt is lethargic, rousable but able to follow simple commands. He denies pain, SO B, altho remains confused. No additional hx is available. OBJECTIVE DATA VITAL SIGNS: BP (!) 152/107 | Pulse 96 | Temp 35.5 C (95.9 F) (Temporal) | Resp 10 | Wt 63.4 kg (139 lb 12.4 oz) | SpO2 100% | BMI 17.95 kg/m Vital sign ranges for last 24hrs: Input and output for last 24hrs: Temp: [35.5 C (95.9 F)-36.7 C (98 F)] 35.5 C (95.9 F) Pulse: [94-105] 96 Resp: [4-15] 10 BP: (145-166)/(75-120) 152/107 SpO2 Av.9 % Min: 99 % Max: 100 % 03/09 1901 - 03/11 0700 In: 4320.7 [I.V.:4220.7] Out: 1302 [Urine:1300] Admit Weight: Weight: 61 kg (134 lb 7.7 oz) Current weight: Weight: 63.4 kg (139 lb 12.4 oz) Intake/Output Summary (Last 24 hours) at 03/11/2020 0747 Last data filed at 03/11/2020 0700 Gross per 24 hour Intake 2667.7 ml Output 627 ml Net 2040.7 ml MEDICATIONS: Scheduled Meds: fentaNYL 1 patch Transdermal Q72H heparin 5,000 Units Subcutaneous 2 times per day insulin glargine 3 Units Subcutaneous Nightly insulin lispro 0-6 Units Subcutaneous 4x Daily WC and HS meropenem 500 mg Intravenous Q12H miconazole Topical BID Continuous Infusions: dextrose 10% dextrose 5% (D5W) infusion + additives 100 mL/hr at 03/11/20 0350 PRN Meds:acetaminophen, calcium carbonate, Hypoglycemia Management AND POCT Glucose A ND dextrose AND dextrose 10%, docusate sodium, hydrALAZINE, metoprolol tartrate, ondan setron, polyethylene glycol PHYSICAL EXAMINATION: GENERAL: WD, thin, ill appearing but in no distress HEENT: Pupils equal, conjugate gaze, no icterus NECK: Supple. No adenopathy or JVD CHEST: Respiratory effort is unlabored. Clear to auscultation ant-lat lung hassan CARDIAC: Reg rate and rhythm without appreciable murmur, rub or gallop. ABDOMEN: Soft, non-tender, no masses or hepatomegaly EXTREMITIES: s/p (R) BKA, skin dry, no edema or obvious lesion NEUROLOGIC: Lethargic, rousable, KOENIG, able to follow simple commands DIAGNOSTICS: Labs: Lab Results Component Value Date CREA 4.39 (H) 03/11/2020 BUN 65 (H) 03/11/2020 NA 142 03/11/2020 K 3.9 03/11/2020 CL 112 (H) 03/11/2020 CO2 24 03/11/2020 Lab Results Component Value Date WBC 13.3 (H) 03/11/2020 HCT 29.2 (L) 03/11/2020 MCV 93.3 03/11/2020 LABPLAT 326 02/27/2020 PLT 256 03/11/2020 Lab Results Component Value Date TROPONIN 0.01 01/06/2020 Lab Results Component Value Date INR 1.1 03/09/2020 INR 1.3 (H) 02/18/2020 PROTIME 14.7 (H) 03/09/2020 PROTIME 17.2 (H) 02/18/2020 ASSESSMENT AND PLAN 29yo found unresponsive, hypoglycemic, now admitted with apparent toxic metabolic encephalo clover, possible hypoglycemic encephalopathy. Per review of med records pt appears to be mor e alert at this time. He reportedly is known to nephrology service but routinely followed a t outside facility. 1. Acute metabolic encephalopathy, severe Slowly improving but remains encephalopathic. Spinal fluid was unremarkable. EEG with no seizure activity. Head CT not show acute change. Patient has leukocytosis tod ay with a white count of 17,000 and a rising procalcitonin but no obvious infection source o ther than his abnormal appearing urine, funguria. The most likely working diagnosis is a hypoglycemic encephalopathy with a possible signific ant period of time hypoglycemia/hypoxia. When found by paramedics his O2 saturation was 80% with a blood sugar 45. Now rm air SpO2 is wnl. Consider MRI imaging as mental status impro ves. Remains on low dose transdermal fentanyl; avoid additional sedating meds 2. Diabetes mellitus Patient continuing on D5 solution with acceptable glucose control on low dose insulin. He is a type I diabetic and has not required insulin altho his anion gap has increased. Contin uing to follow glucose. 3. Acute kidney disease, stage IV with mild hyperkalemia On a bicarb infusion with rising blood sodium. Serum CO2 hooper normalized. Will change to D5L R 100cc/hr 4. Probable urinary tract infection Urine is abnormal, positive only for funguria. Review of records from [place] does not s uggest that he received antibiotic therapy prior to our culture being set up. He was treate d with vancomycin because of chronic diarrhea. X-ray today does not show infiltrates and CT chest abdomen and pelvis did not show source for infection; his abd exam is benign; WBC rem ains elevated altho coming down. Procalcitonin also signif elevated. To continue abx for s uspected infection, source unknown. He has developed an anion gap of 14, ?HCO3 wasting?. La ctate remains wnl. Doubt sepsis, normal lactate, elevated BP's. Nothing clinically to suggest sepsis. 5. FEN Currently not a good candidate for PO intake. Continue D5 in fluids; seen by Nutrition Ser vice; (+) severe protein calorie malnutrition. I attest that this clinical assessment using ASPEN criteria 1 is accurate for this patient and supports that as a medical diagnosis. A specific nutrition treatment plan will be imple mented as outlined in the registered dietitian's plan of care. Nutrition Diagnosis: Severe protein-calorie malnutrition Type, Severe: Chronic illness Weight Loss: Greater than 7.5% in 3 months Energy Intake: Other (see comment) (NPO at this time) Body Fat: Severe depletion Muscle Mass: Severe depletion Recommendations per Nutrition Service. 6. CVS Pt remains hypertensive On PRN hydralazine Trial of PO antihypertensive meds when more alert. Dispo Continued acute care in ICU for managing hypertension, neuro assessment. Electronically signed by: Fidel Bledseo MD, DATE/TIME: 03/11/2020 7:47 AM PDT [facility] HOSPITALIST TEAMElectronically signed by Fidel Bledsoe MD at 020 11:15 AM Allen Deng MD - 03/09/2020 12:43 AM PDT [place], [place] HOSPITALIST HISTORY & PHYSICAL Patient: Brooks Marquez : 1990: Age: 29 y.o. MedRec: [id number] Admission date: 03/09/2020 Hospital day # : 0 Physician author: Allen Barnes MD Today: 03/09/2020 CHIEF COMPLAINT: Acute metabolic encephalopathy HISTORY OF PRESENT ILLNESS: This is a 29 y.o. male with a history of CKD 4, hypertension, chronic pain, gastroparesis, type 1 diabetes status post right BKA who presents after being found down. At 9:30 in the [facility]. Patient went to sleep and the mother checked on him and appeared normal at 230 not awake at that time. On repeat evaluation at 4:30 PM after hearing a strange sound the gayle willis found him in his bed. He appeared ridged with his arms and legs. No tonic-clonic like mo vement. No urinary or fecal incontinence. Patient was not responding to stimuli at that ti me. The mother reports prior to this he was at baseline. No fever or chills. Patient had no p.o. intake on day of admission. Patient has been taking 60 units of Lantus at night whi ch was received yesterday. Patient does take [place] 2 tablets every 3 hours and additionally pregabalin. EMS was called and the glucose level was found to be 45, patient was given dex trose 50. Glucose level improved to the 100s. Patient was taken to [facility] and still remained difficult to arouse. Baseline labs are unremarkable. UA negative. CT head negative. Chest x-ray did not show opacity. Alla ent was transferred to our facility due to poor renal function and further work-up. Patient on recent admission, had left lower extremity foot ulcer treated initially with carmina openem then ciprofloxacin. Wound culture grew staph epi and Serratia. Patient was discharg ed on oral ciprofloxacin for total of 7 days. Additionally patient was noted to have concer n for C. difficile. PAST MEDICAL and SURGICAL HISTORY: Past Medical History: Diagnosis Date Abdominal pain Arthritis Bowel dysfunction Chronic kidney disease Diabetes (HCC) Dizziness Healed ulcer of left foot on examination Heart palpitations Hypertension Kidney stone Onychomycosis Retinopathy Stress headaches Past Surgical History: Procedure Laterality Date ELBOW SURGERY Right LEG AMPUTATION BELOW KNEE URETEROSCOPY Right 09/19/2018 Procedure: CYSTOSCOPY W/ URETEROSCOPY W/ LASER LITHOTRIPSY WITH STENT PLACEMENT; Surgeon: Tc Mora MD; Location: [facility] MAIN OR FAMILY HISTORY: family history includes Bipolar disorder in his brother and another family member; Colon ca ncer in an other family member; Congenital heart disease in an other family member; Diabetes in an other family member; Heart disease in his mother and another family member; Hypertens ion in his father and other family members; Kidney disease in an other family member; Other (see comment) in an other family member; Prostate cancer in his maternal grandfather; Stroke in his mother and another family member; Thyroid disease in his mother and another family m ember. SOCIAL HISTORY: reports that he has been smoking cigarettes. He has never used smokeless tobacco. He repor ts current drug use. Drug: Marijuana. He reports that he does not drink alcohol. REVIEW OF SYSTEMS: Unable to obtain HOME MEDICATIONS: PT REPORTED TAKING NOT TAKING Medication Sig Last Dose Dispense Doc. Provider carvedilol (COREG) 25 mg tablet Take 1 tablet by mouth 2 times daily (with breakfast & din ner) for 30 days. 60 tablet Savage Saavedra DO ciprofloxacin (CIPRO) 500 mg tablet Take 1 tablet by mouth Daily. Patient not taking: Rep orted on 03/04/2020 5 tablet Savage Saavedra DO furosemide (LASIX) 80 mg tablet Take 1 tablet by mouth 2 times daily for 30 days. 60 tabl et Savage Saavedra DO GLUCAGON EMERGENCY 1 MG injection Inject 1 mg into the muscle once. Historical Provider, HYDROcodone-acetaminophen (NORCO) 10-325 mg per tablet Take 1 tablet by mouth 4 times kayleigh y. Historical Provider, hyoscyamine (LEVSIN) 0.[address] 0.125 mg under the tongue every 4 hours as n eeded for Cramping or Diarrhea. Historical Provider, insulin glargine (LANTUS SOLOSTAR) 100 units/mL injection (pen) Inject 10 Units under the skin nightly. 1 pen Savage Saavedra DO insulin lispro (HUMALOG KWIKPEN) 100 units/mL injection (pen) Inject under the skin 4 ranjit es daily (before meals and nightly). 1 unit for every 10 carbs Emmanuel Saavedra lisinopril (PRINIVIL, ZESTRIL) 10 mg tablet Take 5 mg by mouth Daily. Emmanuel Saavedra melatonin 3 mg TABS Take 1 tablet by mouth nightly as needed for Insomnia. Patient not radha ing: Reported on 03/04/2020 30 tablet Savage Saavedra DO ondansetron (ZOFRAN ODT) 8 mg disintegrating tablet Take 8 mg by mouth 2 times daily. Hi storical Provider, pregabalin (LYRICA) 100 mg capsule Take 100 mg by mouth 3 times daily as needed. For pain Emmanuel Saavedra sertraline (ZOLOFT) 50 mg tablet Take 1 tablet by mouth Daily. 30 tablet Savage khanna DO Sodium Bicarbonate-Citric Acid (BRADEN-SELTZER HEARTBURN PO) Dissolve 1 to 2 tablets in 4 ou nces of water as needed for heartburn Historical Provider, vancomycin 125 mg capsule Take 1 capsule by mouth 2 times daily. Indications: Clostridium difficile Bacteria Patient not taking: Reported on 03/04/2020 14 capsule Savage Parkinson on, DO ALLERGIES: Allergies Allergen Reactions Codeine Nausea And Vomiting Reaction: Projectile vomit Vancomycin Nausea And Vomiting, Swelling and Rash Vancomycin and cipro VITAL SIGNS: Obtaining now PHYSICAL EXAMINATION: Constitutional Awake, but not answering appropriately Eye No conjunctivitis nor scleral icterus ENT Unremarkable oral ear and nose Neck No adenopathy, thyromegaly nor masses Lymph node exam Negative in the following areas: neck and epitrochlear Cardiac S1, S2 present, no murmurs Lung CTA throughout Abdomen + BS, Soft, NT, no HSM nor masses Extremities + L BKA + Chronic wound healing on R foot Psych Mood and affect normal Neuro Moving all extremities, awake, but not answering questions appropriately. DIAGNOSTIC STUDIES: Lab results last 24 hours No results found for this or any previous visit (from the past 24 hour(s)). Micro results Microbiology Results (72 hrs) No results found for the last 72 hours. Radiology results No results found. I reviewed imaging EKG Results (I reviewed EKG) I reviewed and summarized old records ASSESSMENT: Principal Problem: Acute metabolic encephalopathy Code Status Full Medical Decision Maker Mother Gia Ramos DVT Prophylaxis HSQ PLAN: Acute metabolic encephalopathy Possibly secondary to hypoglycemia with associated seizure and postictal state or medicatio n induced. Patient was found with glucose level in the 40s. Patient was rigid tone as per the mother. He takes [place] 2 tablets every 3 hours and pregabalin. WBC 10.2, hemoglobin 12 .1. UA negative. Sodium 142, creatinine 4.97. CT head and chest x-ray were unremarkable a t outside facility. -We will order baseline labs including hepatic function panel, ammonia, TSH, vitamin B12, a lcohol level -We will monitor Accu-Cheks closely -IVF -Ordered procalcitonin -UA, UDS -Holding [place] and pregabalin Addendum: Procalcitonin was elevated. UA with multiple WBC, but no bacteria. Patient was retaining ap светлана 700cc when camarena was placed. Will add urine culture and ceftriaxone for now. CT CAP and of LLE to evaluate for another source ordered did not show a source. Left foot appears to b e well-healing chronic wound. Additionally, patient has poor dentition for possible source. Bld cultures collected. Will attempt narcan and ordered lumbar puncture. CKD 4/hyperphosphatemia Creatinine 4.67, baseline near 4s. Calcium corrected to 9 -We will continue to trend -We will start PhosLo Chronic pain Patient has been taking [place] 2 tablets every 3 hours at home -As per #1 Type 1 diabetes status post right BKA/Gastroparesis Spoke to the mother who reports patient is on Lantus 6 units at night, sliding scale -We will place patient on Lantus 3 units at night, insulin sliding scale FEN: Carb PPX: HSQ Disp: Lives with mother, on recent mission patient was recommended for SNF versus LTAC. Tejal mcneal and patient adamantly refused placement. [facility] Documentation I expect this patient will be hospitalized for greater than 2-midnights and expect the post -hospital plan to be discharge to home or to an adult foster home. Electronically signed by: Allen Barnes MD 03/09/2020 12:44 AM [facility] documented in this e ncounter Procedure Notes Erlinda Martinez MD - 03/09/2020 6:29 PM PDTAssociated Order(s): EEGProcedure(s): EEG EEG REPORT GENERAL DESCRIPTION: This was a 19 channel awake EEG recording with International 10/20 gabbie ctrode placements. The background activity consisted of diffuse theta slowing 6-7Hz. Signif icant amount of EMG artifact was present throughout the recording. ACTIVATION & SLEEP: No change of the background activity with eye opening was noted. Photic stimulation produced no significant changes to the background activity. Drowsy or sleep state was not captured. OTHER DATA: No electrographic seizures were recorded. CLINICAL IMPRESSION: This EEG is abnormal. Mild diffuse slowing was noted suggestive of non specific encephalopa thy of toxic, metabolic, infectious or degenerative etiology. No electrographic seizure were noted. This does not rule out a seizure disorder. Clinical correlation is recommended. Dr Erlinda Martinez ice, Emmanuel Sagastume MD - 03/09/2020 3:26 PM PDTLumbar puncture in ICU room 455 Dr. Faust asks for LP for diagnosis of mental status changes Using LP kit, Rt lateral decub position. Pt had been given ativan for sedation so no addit ional sedation needed. Sterile prep with betadine, drape, 5 cc's of lidocaine for skin anesthesia. Spinal needle with bevel aligned with dura fibers advanced to SAB on one pass. Opening pre ssure 10. 4 tubes of clear CSF passed to nurse. 2-3 cc's in each tube. Needle out, bandai d applied. Patient tolerated all well Emmanuel Patten documented in this encounter Consult Notes Luisa Polanco ARNP - 03/14/2020 11:40 AM PDTAssociated Order(s): IP CONSULT TO PALLIATIV E CARE Palliative Care Consultation Initial Consult Note Brooks Marquez Age: 29 y.o. : 1990 Hospital Day: 5 Admission Date: 03/09/2020 Date of Service: 03/14/20 Attending: Fidel Bledsoe MD Referring Provider: Fidel Bledsoe MD PCP: Emmanuel Saavedra [facility] [employer] Staff: DANA Carrizales REASON FOR CONSULTATION: We were consulted to support the patient and family and per patient's mother's request, provide information regarding palliative care - specificall y outpatient palliative care, navigate the health system, make recommendations regarding tit ration of medications for symptom management, clarify care preferences and provide emotional support to patient and family. Thank you for this referral and allowing us to assist in the care of your patient. ASSESSMENT Summary of Medical Situation: (Illness progression and Prognosis): Brooks Marquez is a 29 y.o. male admitted on 03/09/2020 for unresponsiveness at home and foun d by paramedics to be hypoglycemic (45) and hypoxic (80%), having been last checked on 2 ravi rs prior. He was initially taken to [facility] and transferred to [facility]. He has be en found to have severe and acute metabolic encephalopathy with abnormal EEG (03/09/2020 - se e note by Neurologist Dr Erlinda Martinez), Diabetes type I with nephropathy - CKD IV, retin opathy and gastropathy, and new severe protein calorie malnutrition. Additional problems inc lude chronic pain due to "crabbing injuries" per Alin, chronic diarrhea and nausea with vom iting secondary to gastroparesis per patient's mother. Alin was to have a port placed for hemodialysis now delayed by this admission. He is back to his cognitive baseline per his mother / director of primary care. However, he has not completely regain ed his functional status. Samantha states at baseline, he is able to sit up in bed, roll over and assist with transfers. Improvements include return of ability to hold utensils for eatin g and again, cognitive function. Not found in [facility] EHR, but reported by the patient's mother, Alin suffered a stroke 2 year s ago. 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 He has a 9 year old son, wears a tattoo with az s name. He moved home to be with his mother in [place]. She is now his paid director of primary care. He sees a die mechanic from [facility]. Alin states he is waiting for a port for d ialysis. Palliative Care consult was requested by the patient's mother / caregiver to discuss pallia tive care and how it may be accessed as an outpatient. Reviewed [place] [facility] [employer] DEVELOPER for Alin and Brooks aMrquez; Found only prescriptions for hydrocodone-acetaminophen monthly for qty 112 tablets. DISCUSSION AND PLAN Discussion: 03/14/2020 Attended by: the patient and palliative care [facility] Palliative Care Service Z51.5 Palliative Care Diagnoses: 1. Primary Diagnosis: Goals of Care Discussion DM type I with gastroparesis, nephropathy and retinopathy CKD IV pending fistula for hemodialysis Severe protein calorie malnutrition Frail adult with current PPS of 40% Discussion with Alin regarding his current emotional status, quality of life including chr onic pain effects and thoughts on code status took place this morning. Alin is very thought ful and demonstrates insight into his condition. He enjoys his daily life, finds his activi ties very enjoyable despite missing his prior life of physical activity and independence. Asked about CPR and "life support" or being on machines, his initial response was "no machi shayna." But after further discussion, he stated he would want CPR, would accept "living on mac [place]ett" adding "I just want to live." He is hopeful that dialysis and port placement is not f urther delayed. I attest that this clinical assessment using ASPEN criteria 1 is accurate for this patient and supports that as a medical diagnosis. A specific nutrition treatment plan will be imple mented as outlined in the registered dietitian's plan of care. Nutrition Diagnosis: Severe protein-calorie malnutrition Type, Severe: Chronic illness Weight Loss: Greater than 7.5% in 3 months Energy Intake: Other (see comment) (NPO at this time) Body Fat: Severe depletion Muscle Mass: Severe depletion Chronic Pain Chronic Opioid therapy Alin is followed by [facility] where he sees Dr Jim and has a pain contract. He talks about pain but more so the disruption to his daily activities from having to take PRN pain medications and wait for relief. He repeats over and over he wants "something that lasts." He indicates he tries deep breathing and he has little interest in hearing about ot her modalities or analgesics Not opioid based. History and physical indicate he was using 2 tablets NORCO every 3 hours (?). Given the sev erity of encephalopathy NORCO was discontinued. Alin states he uses one tablet but not rou tinely. Fentanyl 12 mcg transdermal was ordered and changed today 03/14/2020. Alin complained of pa in and demanded NORCO and received an order for NORCO one tablet every 6 hours PRN. MAR ind icates acetaminophen was tried first but he received NORCO x 2 today. Alin had no idea he had a fentanyl patch applied, did not know what fentanyl was and was s tartled to find he was given what he wanted most, that is long acting pain medications. Once informed, he seemed to feel he has in fact had less pain. This provider discussed with both Alin and Samantha (by phone) that long acting analgesics a re meant to reduce need for PRN pain medications. Also discussed that fentanyl is a small mo lecule that is better tolerated by the kidneys. He should not require PRN NORCO but occasion ally for breakthrough pain. We are starting routine acetaminophen and reducing NORCO to one 10/325 mg tablet up to twice daily PRN breakthrough pain. Discussed at some length, the conc ept of hyperalgesia (using layman terms). Pain is described as stabbing in the upper abdomen. He used the same description for Left c lavicle, Right > Left elbow and Left knee pain. The left clavicle is deformed; Alin describ es lifting crab nets over the left shoulder and injuring his shoulder, elbows and knees. The joint pains affect his ability to start his day, engage in activity, sleep and has signific ant impact on his quality of life. See orders for routine acetaminophen for MSK pain. PAIN Assessment: Best 0/10 / Worst 10/10 Plan: Samantha will remind Alin of the fentanyl and help him to form positive thoughts re enforcin g the belief in efficacy of pain regime. Recommendations: Routine acetaminophen 650 mg twice daily NORCO 10/325 tablet, one tablet up to twice daily for breakthrough pain Fentanyl 12 mcg patch, change every 72 hours. Palliative care outpatient is not yet available in the [place] or [facility]. Sending a note to Palliative Care in [place], but this is very likely too distant for them t o cover. Return to [facility] for pain / palliative care Encouraged Samantha to discuss palliative care and start discussions regarding quality of lif e balance with their PCP. Patient Active Problem List Diagnosis Right ureteral stone Hyperkalemia Type 1 diabetes mellitus with nephropathy Essential hypertension Marijuana use Current smoker Epigastric pain Diabetic gastroparesis Diabetic ketoacidosis without coma associated with type 1 diabetes mellitus Fissure in skin of foot Hyperglycemia due to type 1 diabetes mellitus Anemia of chronic renal failure, stage 4 (severe) CKD (chronic kidney disease) stage 4, GFR 15-29 ml/min Electrolyte imbalance risk Metabolic acidosis Nephrotic range proteinuria 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 with type 1 diabetes mellitus Chest pain Acute kidney injury superimposed on chronic kidney disease Community acquired pneumonia of right lower lobe of lung Hypernatremia Chronic diarrhea Hypoalbuminemia Acute metabolic encephalopathy Hypoglycemia Severe protein-calorie malnutrition Current Code Status: Full Code Advance Directive documents on file?: none found in Epic EHR POLST: No Surrogate Decision Maker: Based on [place] State Informed Consent Surrogate Hierarchy RCW [phone], would be the highest a vailable individual(s) which is/are Gia Ramos, mother. Contact: DP Paperwork Samantha states she has power of ip technology transactions attorney documentation at home. Prognosis: guarded Hospice eligible?: no. Based on goals of care. PATIENT S DECISION-MAKING CAPACITY AT TIME OF VISIT:Decisional Alin was able to provide information regarding his medical history, give preferences for treatment options with [facility]. Speaking with his mother Samantha today, she states he is completed recovered from "this even t" and "totally with it mentally" SUBJECTIVE HPI: Brooks Marquez is a 29 y.o. male who was admitted to [facility] on 03/09/2020. See Assessment, Discussion and Plan sections. HISTORY: Past Medical History: Diagnosis Date Abdominal pain Arthritis Bowel dysfunction Chronic kidney disease Diabetes (HCC) Dizziness Healed ulcer of left foot on examination Heart palpitations Hypertension Kidney stone Onychomycosis Retinopathy Stress headaches Past Surgical History: Procedure Laterality Date ELBOW SURGERY Right LEG AMPUTATION BELOW KNEE URETEROSCOPY Right 09/19/2018 Procedure: CYSTOSCOPY W/ URETEROSCOPY W/ LASER LITHOTRIPSY WITH STENT PLACEMENT; Surgeon: Tc Mora MD; Location: [facility] MAIN OR Family History Problem Relation [...] Sexual activity: Yes Partners: Female control/protection: Condom Spiritual History & Screening: Mitra: Yarsani See note by Collection Development Librarianmaxi Garcia Spiritual Support: Spiritual care is an important part of whole person care and is a vital part of Specialty Palliative Care. Please see Spiritual Care notes. Review of Systems See HPI. Questions asked in ROS include: Constitutional: fevers, sweats, chills, fatigue HEENT: sore throat, difficulty or painful swallowing Cards: chest pain, dyspnea on exertion Resp: shortness of breath, chest congestion, cough : dysuria Neuro: headaches, change in vision - not now, numbness or tingling, weakness. Remainder of other 11 points of review of systems have been reviewed and negative, except per HPI. Symptom Assessment Tool (based on Modified [place] Symptom Assessment Scale) [] Unable or incomplete due to impaired or insufficient cognition 3(severe 2 (mod) x x x 1 (mild) x x 0 (absent) x x x x pain dyspnea constipation nausea anorexia fatigue insomnia anxiety depression other (0=absent, 1=mild, 2=mod, 3=severe) Medications Allergies Allergies Allergen Reactions Clindamycin Other (See Comments) Per mother facial swelling, eyes swelled shut, nausea, vomiting. Codeine Nausea And Vomiting Reaction: Projectile vomit Vancomycin Nausea And Vomiting, Swelling and Rash Vancomycin and cipro Scheduled Medications PRN Med's calcium acetate 1,334 mg Oral TID WC cholestyramine light 4 g Oral BID fentaNYL 1 patch Transdermal Q72H heparin 5,000 Units Subcutaneous 2 times per day insulin glargine 5 Units Subcutaneous Nightly insulin lispro 0-6 Units Subcutaneous 4x Daily WC and HS metoprolol tartrate 25 mg Oral BID miconazole Topical BID sertraline 50 mg Oral Daily dextrose 10% acetaminophen, acetaminophen, Hypoglycemia Management AND POCT Glucose AND dextros e AND dextrose 10%, docusate sodium, hydrALAZINE, HYDROcodone-acetaminophen, loperamide, metoprolol tartrate, ondansetron, polyethylene glycol OBJECTIVE BP 156/88 | Pulse 86 | Temp 35.5 C (95.9 F) (Oral) | Resp 18 | Wt 67.4 kg (148 lb 9 .4 oz) | SpO2 100% | BMI 19.08 kg/m Intake/Output Summary (Last 24 hours) at 03/14/2020 1141 Last data filed at 03/14/2020 0508 Gross per 24 hour Intake 1543 ml Output 600 ml Net 943 ml Physical Exam Constitutional: Profoundly cachectic, pale, severe frailty Head: atraumatic. ENT: Pupils 2 mm and reactive to light. Sclera clear, non icteric. Decayed, broken dentitio n. Neck supple, no cervical adenopathy. Cardiovascular: S1 S2, RRR. No murmurs. No peripheral edema. Left foot and lower leg plaqu e scales, left foot cool and dusky. Right BKA stump warm. Pulmonary/Chest: CTAB, no W/R/R, non labored. Abdomen: soft, bowel tones +. No masses. No guarding or rebound. 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 strength grossly weak . Neurological: AOx3. Speech is halting but thought content normal. PERRL, EOMI. Left side nasolabial droop ? Skin: no rashes, unusual bruising, left foot wound dressed. Psychiatric: Affect normal and mood is not depressed. Behavior is normal. Palliative Assessments Functional Status: Palliative Performance Score (PPS) At baseline: 50% (Mainly sit/ lie, unable to do any work with extensive disease, consider able assistance required, normal or reduced intake, full or confusion conscious level) Base d on information gleaned from discussion with Samantha Currently: 40% (Mainly in bed, unable to do most activity with extensive disease, mainly a ssistance, normal or reduced intake, full or drowsy with +/- confusion) Lab Pertinent Labs Reviewed for Today's Visit: Recent Labs Lab 03/11/20 0407 03/10/20 0411 WBC 13.3* 17.2* HGB 9.2* 10.1* HCT 29.2* 31.8* PLT 256 290 Recent Labs Lab 03/14/20 0332 03/13/20 0341 NA 141 141 K 4.6 4.2 CL 112* 110* CO2 21 22 BUN 63* 60* CREA 4.24* 4.25* CALCIUM 7.3* 7.2* Recent Labs Lab 03/14/20 0332 03/13/20 0341 03/11/20 0406 03/10/20 0412 MG -- -- -- 1.8 1.8 PHOS 6.2* 6.3* < > 8.0* 8.6* < > = values in this interval not displayed. Recent Labs Lab 03/11/20 0406 03/09/20 0346 AST 29 20 ALT 12 7* ALKPHOS 118* 133* BILITOT <0.2* <0.2* Recent Labs Lab 03/09/20 0631 INR 1.1 PROTIME 14.7* Radiology/Imaging No results found. REFERRALS AND DISPOSITION Referrals made: none Disposition: home with home health (?) COMMUNICATION/DOCUMENTATION: This care plan is based on collaboration with the patient, his mother, attending physician and welfare case worker Total time of approximately 183 minutes (1571-5485=60min face to face; [id number]) was spen t with the patient and/or patient's family, and/or on the patient's floor/unit, of which mor e than 50% was spent counseling and/or coordination the patient's care as outlined above. Topics Discussed: See discussion notes under Discussion and Plan section. Thank you for consulting Palliative Care and for the opportunity to help participate in you r patient's care. Please don't hesitate to contact the Palliative Care Team with questions [phone] Messages will be retrieved within one business day. GERMAIN: AFTT - adult failure to thrive GYROSCOPIC ENGINEERING TECHNICIAN - advanced registered nurse practitioner BiPAP - bilevel positive airway pressure BP- blood pressure CN-cranial nerves CPAP-continuous positive airway pressure dc'd - discharged or discontinued EOMI-extraocular movement intact HR-heart rate HSM-hepatosplenomegaly LE-lower extremity MD- doctor of medicine [id number] saturation PERRLA-pupils equal, round, reactive to light and accommodation RR-respiratory rate S1 S2- 1st and 2nd heart sounds T-temperature JVD-jugular vein distension Michel Boggs R DN - 03/11/2020 12:39 PM PDTAssociated Order(s): IP CONSULT TO NUTRITION SERVICES NUTRITION THERAPY NOTE Summary: Pt admitted for encephalopathy after being found down. He has a hx of CKD4, HTN, chronic pain, gastroparesis and Type 1 DM s/p BKA. Today his diet is advanced from NPO to a renal consistent CHO diet with bite size pieces. Pt's mother reports that he likes most fo ods. EMR shows 15% weight loss in past 3 months, 75 kg to 63 kg. No current A1C, last valu e several months ago was >8. He is meeting ASPEN criteria for severe protein calorie malnutrition based on 15% unintende d weight loss and evidence of protein and fat loss. Estimated Energy and Protein Needs: (based on 65 kg) Kcal needs: 7758-9251 Kcals/day Protein needs:75-90 grams of protein/day Fluid goal:8117-5792 cc fluid per day Nutrition Diagnosis: Severe protein-calorie malnutrition Type, Severe: Chronic illness Weight Loss: Greater than 15% weight loss, 75 kg to 63.4 kg, BMI 17.95 Energy Intake: NPO since admit with diet advancing today. Pts mom vague regarding recent i ntake at home Body Fat: Severe depletion Muscle Mass: Severe depletion Nutrition Plan of Care: Nutrition Diagnosis: Malnutrition, inadequate protein-energy intake related to poor mentat ion as evidenced by unintended 15% weight loss and protein and fat loss. Interventions: 1. Nutritional supplements tid 2. Menu adjusted to meet his preferences/tolerances Nutrition Goals: 1. Intake to meet assessed needs 2. Weight gain over time 3. Improved DM management Monitor: 1. Intake 2. Nutrition related concerns F/u in 2 days. Available as needed, ext [phone] Assessment: Diet Order: Recent Labs 03/11/20 0406 03/10/20 0841 03/10/20 0412 03/09/20 0346 NA 142 144 148* 144 K 3.9 4.3 4.5 5.0 CL 112* 114* 113* 116* BUN 65* 60* 62* 57* CREA 4.39* 4.52* 4.52* 4.67* ALBUMIN 2.2* -- 2.5* 2.5* MG 1.8 -- 1.8 1.8 PHOS 8.0* -- 8.6* 7.7* Anthropometrics: Weight: 63.4 kg (139 lb 12.4 oz) Wt Readings from Last 3 Encounters: 03/10/20 63.4 kg (139 lb 12.4 oz) 02/21/20 75.1 kg (165 lb 9.1 oz) 01/09/20 79 kg (174 lb 2.6 oz) Body mass index is 17.95 kg/m. Weight change: First: 61 kg (03/09/2044)Last: 63.4 kg (03/10/20633)Difference: 2.4kg Electronically Signed by: MICHEL GORDON RDN 03/11/2020 12:39 PM PDT documented in this encounter Miscellaneous Notes Plan of Pascale Garcia RN - 03/14/2020 4:15 PM PDTDischarge planning note:late entry This CM received call from patient's mother, Samantha, this AM , who states she had been a M/ S COIL TIER for years and is his paid caregiver. She states she had a long talk with her son last night over the phone, and he really wants to come home and not go to [facility]. Samantha states that he would do a lot better if coming home and his brother usually takes hi m out once a week and he lives only a mile away. Samantha was also stating that she has been trying to get another specialized w/c for his nee ds as well as an air mattress and an IPad for his communication needs at times. This CM contacted Cristine with PT, and he reported that he has been trying to work on this w/c request for the past month but is not getting any communication from [facility]. He reports that he will get back with this CM if he hears from them. This science writer gave LYDIA Jeong, the above information since she will be following up on his discharge needs today. Electronically signed by: Pascale Juan RN 03/14/2020 4:30 PM PDT lan of Naya Mcintosh RN - 03/14/2020 3:40 PM PDTMr Jimmy discharges to home. HL was discontinued. Nicol larose as discontinued, I did talk with Mr Martin mom over the phone, explained the discharge. I di d ask her what Brooks augustine looked like prior to coming in and she stated that he has had c hronic issues with having irritated redness to his buttock. Prior to discharge I changed the two small dressings to his buttock which had to small areas that looked more abrassions melanie n blisters. Mr Marquez is without distress at the time of discharge lan of Care - Adenike Garcia, COLLIERY CLERK - 03/14/2020 3:31 PM PDT Problem: Discharge Planning Goal: Patient's discharge needs will be identified in a timely manner Outcome: Met Goal: Patient will be discharged in a safe manner Outcome: Met This CM spoke with Rex, Staffing Mgr at [facility]. Rex said they received tonsil hospital referral and will have the hospitalist that comes on at 1500 to review it. They would not be able to accept Alin until earliest Tuesday. Called [facility] and spoke with Alana. She states that they last saw Alin on the and then had to discharge him as he was admitted to the hospital and needed re-c ertified. At this time, they are not accepting any new referrals and because Alin would be a new referral, they cannot accept him to services until this order is lifted. This welfare case worker spoke with Alin about his discharge plan. Alin states that he wants to go home today. We dicussed [facility] for further therapy prior to going home and Alin declined, stating that he would rather go home and do therapy at home if he can. He sa id he has all the needed DME set up and is aware that PT and his PCP are coordinating to get him a specialized wheelchair. Alin would like [facility] to resume once the y are able to start services again. This CM did explain that [facility] cannot accept him at this time. He declined a referral to [facility] in [facility]'s absence at this ti wy. This CM called his mother Samantha and explained above. She is ready for him to come home. hugo said he will need transportation by Medicaid transport. Samantha will be calling [facility] to continue to follow up with them--to get him back on services as soon as they are able . She also declined a HH referral to [facility] stating that Alin works well with the HH staff and doesn't want to start all over with a new agency. Called [facility] and arranged for a wheelchair curing pickling packer with transportation solutions at 1515. PLAN: Home with mother and [facility] transport at 1515. Electronically signed by: Adenike dhillon COLLIERY CLERK 03/14/2020 3:50 PM PDT lan of Care - Hasumkh Ryder, PT - 03/14/2020 10:31 AM PDTPhysical Thera py Plan of Care DME update Note Summary: I spoke with patients PCP, the chemical laboratory assistant for Dr. Emmanuel Saavedra MD, expressing concern for patient's urgent need of a new and properly fitting WC. Dr. Saavedra's office is faxing over an order for PT to evaluate WC needs and begin the process of involving a licens ed vendor to get him a WC the patient can safely use. Will update when order received. Electronically signed by: Hasmukh Ryder, PT, 03/14/2020 10:32 AM PDT lan of Guilherme - Madelin Olivarez, PT - 03/14/2020 10:10 AM PDTFormatting of this note might be different from t he original. Physical Therapy Plan of Care Treatment Note Summary: Brooks has been participating in physical therapy for treatment of impaired func tional mobility and transfers following admit for severe acute metabolic encephalopathy. Emphasis of session included bed mobility, sitting balance/tolerance, and [facility] using overhead lift. Co-treat with OT to maximize pt safety and participation. Alla ent demonstrates progress towards functional goals as evidenced by ongoing participation in therapy and increasing capacity for functional activities. RN cleared patient for participation in therapy. Patient was agreeable to therapy. Patient participated without adverse reaction. RN debriefed on therapy session and patient status. I t is encouraged that the patient be up in chair for all meals. Recommended mobility with nursing: Day Night bedside commode bedside commode Overhead Lift Overhead Lift with 2 people with 2 people Remaining barriers to discharge and functional limitations include decreased insight into s afety and deficits, decreased functional activity tolerance, decreased bed mobility, decreas ed functional transfers, not yet able to mobilize at level safe for home discharge, [facility] in dicating significant impairment with basic functional mobility, and medical status. Brooks will benefit from continued therapeutic intervention to address ongoing impairments and increase safety and independence with activities necessary for safe discharge. Refer be low for specific details regarding functional levels. Physical Therapy Discharge Recommendations are: Recommended discharge disposition: shelter facility Post discharge physical therapy recommendation: ongoing low intensity therapy, will benefi t from structured setting Equipment Recommendations: other (see comments)(TBD) Planned Interventions: balance training, bed mobility training, home exercise program, man ual therapy techniques, neuromuscular re-education, patient/family education, ROM (Range of Motion), strengthening, transfer training, wheelchair management/propulsion training Recommended Frequency: other (see comments)(4-5 times/wk) Patient Status/Goals: Reflects last filed data and may be from multiple contributors. Transfers pt able to participate in weight shifting for positioning of sling, overhead lift used to t ransfer pt to bedside chair Bed-Chair, Level of [place]: dependent ( less than 25% patient effort), 2 person jaz t required Chair-Bed, Level of [place]: not tested(pt up in chair at end of session) Lwu-Rxliz-Sue, Assistive Device: mechanical lift Safety Issues: sequencing ability decreased, weight-shifting ability decreased Impairments: muscle tone abnormal, decreased flexibility, ROM decreased, strength decreased , impaired balance, coordination impaired, motor control impaired, postural control impaired , other (see comments)(decreased activity tolerance) Bed Mobility improving, con't to require cues and trunk support to complete supine>sit Assistive Device: bed rails, HOB elevated Roll Left, Level of [place]: not tested Roll Right, Level of [place]: contact guard assist, verbal cues required, tactile cues required Scoot/Bridge, Level of [place]: not tested Supine to Sit, Level of [place]: minimal assist (75% patient effort), set up required, verbal cues required, tactile cues required Sit to Supine, Level of [place]: not tested(pt up in chair at end of session) Safety Issues: decreased use of arms for pushing/pulling, decreased use of legs for bridgin g/pushing, impaired trunk control for bed mobility Impairments: muscle tone abnormal, decreased flexibility, ROM decreased, strength decreased , impaired balance, coordination impaired, motor control impaired, postural control impaired , other (see comments)(decreased activity tolerance) Balance Sitting Balance: Static: (fair-) Sitting Balance: Dynamic: (poor+) Standing Balance: Static: (not tested) Standing Balance: Dynamic: (not tested) Functional Endurance improving PT Goal Review Date Most Recent Value STG Review Date 03/19/20 at 03/12/2020 1525 Roll Left/Right Goal Most Recent Value STG Status progressing at 03/14/2020 1010 STG [place] Level modified independent at 03/12/2020 1525 STG Assistive Device bed rails at 03/12/2020 1525 [id number] Goal Most Recent Value STG Status progressing at 03/14/2020 1010 STG [place] Level minimum assist (75% patient effort) at 03/12/2020 1525 STG Assistive Device bed rails, HOB elevated at 03/12/2020 1525 [id number] Goal Most Recent Value STG Status progressing at 03/14/2020 1010 STG [place] Level maximum assist (25% patient effort) at 03/12/2020 1525 STG Assistive Device 2 wheeled walker (FWW) at 03/12/2020 1525 STG Comments stand/squat pivot at 03/12/2020 1525 Balance Sitting Static Goal Most Recent Value STG Status progressing at 03/14/2020 1010 STG Pt will independently maintain sitting balance at EoB x 5 min with UE support. at 02/24 1525 PT Time Calculation PT Additional Treatment Time: Co-treatment PT Co-treatment Start Time: 0935 PT Co-treatment Stop Time: 1009 PT Co-treatment Total Time: 34 PT Total Treatment Time: 34 Timed TX Code Minutes: 15 Electronically signed by: Madelin Salazar, PT, 03/14/2020 4:13 PM PDT lan of Guilherme - Beth Camarillo OT - 03/14/20 20 10:09 AM PDT Occupational Therapy Plan of Care Treatment Note Summary: Brooks has been participating in occupational therapy for treatment of Impaired BADLs, decreased basic functional mobility, decreased functional activityy tolerance, impair ed cognition, impaired self-feeding following admit w/ acute metabolic encephalopathy; AKD s tage IV; probable UTI. Pt was found @ home unresponsive, hypoglycemic, toxic metabolic encep halopathy.. Emphasis of session included functional mobility; A/AAROM BUE; self-feeding edu cation. Patient demonstrates progress towards functional goals as evidenced by tolerating i ncreased functional activity; slowly increasing gross motor strength, improving BUE function . Note during mobility for transfer to EOB and to recliner- there is significant erythema of buttocks and coccyx area. There are also multiple sites of abrasion/shearing, small opening also near area of coccyx. There is a pending Wound/Ostomy Consult dated 03/09/20 for "Multi ple wounds, various stages of healing." Will f/u w/ Insurance Application Investigator regarding status of consult. Reviewing pt's DME needs in anticipation of discharge, pt reports spending most of his time up in his manual w/c, or his lift chair. Pt's current w/c is inadequate for his current le enmanuel of physical needs and skin protection needs. Pt is unable to manually propel a w/c @ th is time; is unable to adequately complete any type of pressure relief sufficiently to fully unweight buttocks; is unable to maintain static sitting balance for any duration. Pt has MU LTIPLE bony prominences @ risk of breakdown w/ any contact to a surface. There are multiple sites present of skin impairments needing further evaluation and staging. He would benefit from a w/c evaluation to fully evaluate his needs for mobility, skin protection, and positi oning. OT continues to recommend SNF or perhaps LTACH @ d/c d/t his multiple needs. RN cleared patient for participation in therapy. Patient was agreeable to therapy. Patient participated without adverse reaction. RN debriefed on therapy session and patient status. Recommended toileting with nursing: Day Night bedpan bedpan No Assistive Device No Assistive Device with 2 people with 2 people Remaining barriers to discharge and functional limitations include decreased insight into s afety and deficits, decreased functional activity tolerance, decreased bed mobility, decreas ed functional transfers, decreased ability to perform ADLs, unsafe discharge disposition, no t yet able to mobilize at level safe for home discharge, and spinal precautions. Brooks will benefit from continued therapeutic intervention to address ongoing impairments and increase safety and independence with activities necessary for safe discharge. Refer be low for specific details regarding functional levels. Occupational Therapy Discharge Recommendations are: Recommended discharge disposition: shelter facility(has impaired skin integrity, h as needs for custom w/c and positioning/skin needs.) Post discharge occupational therapy recommendation: ongoing low intensity therapy, will be nefit from structured setting Equipment Recommendations: (TBD) Planned Interventions:ADL retraining, balance training, bed mobility training, cognitive re training, functional endurance training, motor coordination training, patient/family educati on, ROM (Range of Motion), strengthening, transfer training, discharge planning Recommended Frequency: 4 times/wk, 5 times/wk Patient Status/Goals: Reflects last filed data and may be from multiple contributors. ADLs Pt reports having fed himself his breakfast this AM, used R hand for ~50% of meal. Self-Feeding, Level of [place]: moderate assist (50% patient effort), maximal assist ( 25% patient effort), set up required Self-Feeding Impairments: ROM decreased, strength decreased, impaired balance, coordination impaired, motor control impaired, postural control impaired, impaired functional endurance/ activity tolerance Therapeutic Exercise Seated up in recliner. AA shoulder flex RUE x 5, LUE Active shoulder flexion x 5. Pt has reduced triceps control to hold elbow extension w/ shoulder flexion. Functional Endurance Improving. Pt seated EOB prior to transfer x 10 min, then tolerated transfer to recliner @ bedside. Bed Mobility Pt required extra time and effort but was able to increase his level of assist to transitio n his trunk to upright @ EOB. Also able to statically hold balance w/o physical assist. Co- treat w/ PT for safety, complexity of mobility needs, to maximize his function. See PT note for further info on status of bed mobility. Assistive Device: bed rails, HOB elevated, draw sheet Transfers Overhead lift transfer. Pt able to shift weight seated on EOB to assist in placement of sl ing. Bed-Chair, Level of [place]: 2 person assist required, dependent ( less than 25% patie nt effort) [id number], Assistive Device: (Overhead lift) Toilet, Level of [place]: dependent ( less than 25% patient effort), 2 person assist r equired, verbal cues required Safety Issues: sequencing ability decreased, weight-shifting ability decreased Impairments: strength decreased, impaired balance, coordination impaired, motor control imp aired, postural control impaired, pain, sensory feedback impaired OT Goal Review Date Most Recent Value STG Review Date 03/19/20 at 03/12/2020 1524 Eating/Self Feeding Goal Most Recent Value STG Status progressing at 03/14/2020 1009 STG [place] Level minimal assist (75% patient effort) at 03/12/2020 1524 Grooming Goal Most Recent Value STG Status continued at 03/14/2020 1009 STG [place] Level minimum assist (75% patient effort) at 03/12/2020 1524 UB Dressing Goal Most Recent Value STG Status continued at 03/14/2020 1009 STG [place] Level minimum assist (75% patient effort) at 03/12/2020 1524 LB Dressing Goal Most Recent Value STG Status continued at 03/14/2020 1009 STG [place] Level moderate assist (50% patient effort) at 03/12/2020 1524 Toilet Transfer Goal Most Recent Value STG Status continued at 03/14/2020 1009 STG [place] Level minimum assist (75% patient effort) at 03/12/2020 1524 OT Time Calculation OT Additional Treatment Time: Co-treatment OT Co-treatment Start Time: 933 OT Co-treatment Stop Time: 1008 OT Co-treatment Total Time: 35 OT Total Treatment Time: 35 Timed [place] Code Minutes: 35 Electronically signed by: Beth Camarillo OT, 03/14/2020 12:19 PM PDT lan of [facility] Girish Little RN - 03/14/2020 4:56 AM PDTPt is A&O, his speech is slurred and at times hard t o understand but gets his needs across, FC patency maintained and draining urine approprietl y, PO [place] given x1 tab for generalized body pain. Call light within reach, will continue t o monitor. lan of [place] - Shante Contreras, Speech Pathologist - 03/13/2020 3:03 PM PDT Speech Therapy Plan of Care Treatment Note Summary: Brooks has been participating in speech therapy for treatment of Swallow WNL, Dy sarthria. Emphasis of session included administration of a dysarthria assessment using the F robby Dysarthria Assessment. Interview with patient indicated per pt report that he curren tly smokes about 4 cigarettes daily however is trying to quit. See below for findings. Damion jeffrey demonstrates progress towards functional goals as evidenced by improved speech. Remaining barriers to Motor Speech include comorbidities, complex medical history. Brooks will benefit from continued therapeutic intervention to address ongoing impairments and increase safety and independence. Refer below for specific details regarding specifics of session and impairments. French Dysarthria Assessment (FDA-2): French Dysarthria Assessment (FDA-2) administered to determine pattern of disorder for dy sarthria. Best fit descriptors are assigned for the following areas: (A-normal for age, B- mild abnormality noticeable to skilled observer, C-abnormality obviou s but can perform task/movements with reasonable approximation, D-some production of task bu t poor in quality, unable to sustain, inaccurate or extremely labored, E- Unable to undertak e task/movement/sound) Reflexes Cough A; no difficulty Swallow A; no abnormality Dribble/drool A; no difficulty Respiration At rest A; no difficulty In speech A; no abnormality Lips At rest A; no abnormality Spread A; no abnormality present Seal A; good lip seal, retains pressure for 15 seconds or repeats /p/ with even seal Alternate C; attempts both movements, but movement is labored. One movement may be within normal limits, with other movement being severely distorted In speech A; lip movement within normal limits Palate Fluids A; no difficulty Maintenance A; smooth, symmetrical movement of palate fully maintained In speech A; normal resonance, no nasal emission Laryngeal Time A; sustained /ah/ clearly for 15 seconds Pitch A; no abnormality Volume A; able to change volume in controlled manner In speech A; no abnormality, voice production is spontaneously effective and appropriate Tongue At rest B: tongue shows occasional involuntary movements or minimal deviation Protrusion B; task is slow (between 4 and 5 seconds), otherwise normal Elevation C; moves well both ways, but movement is labored or incomplete Lateral B; move well but slowly (takes 5 to 6 seconds) Alternate C; one sound is well articulated, but the other is poorly presented, or task det eriorates (takes 10 seconds to complete) In speech C; correct articulation points on the whole, but slow alternation movements make speech labored. Several omissions of consonants Intelligibility Words 11/12 words interpreted correctly; speech easily intelligible Sentences B; ten sentences correctly interpreted, but had to use particular care in listen ing Word omissions, articulation errors present. Slow effortful speech Conversation B-C; speech abnormal but intelligible 80% of opportunities - intermittently h as to repeat. He does self correct frequently which improves speech clarity with Self correc tion. Speech Language Pathology Discharge Recommendations are: Recommended discharge disposition: needs 24 hour supervision/assist Post discharge speech language pathology recommendation: continue EMERGENCY MANAGEMENT SPECIALIST tx for communication Identified Problems Needing Skilled Intervention: Swallow WNL, Dysarthria Planned Interventions: diet texture modification, home program instruction, patient/caregi ana education Recommended Frequency: 4 times/wk, 5 times/wk Patient Status/Goals: Reflects last filed data and may be from multiple contributors. Cognitive Mood/Behavior: calm, cooperative Orientation: oriented x 4 Arousal Level: opens eyes spontaneously Speech: pace/rate variance, spontaneous, logical Dysphagia Goal Most Recent Value STG Status met at 03/13/2020 1503 STG Patient will continue to participate in clinical bedside swallow evaluation to upgrade to PO diet. at 03/13/2020 1503 Solid Texture Goal Most Recent Value STG Status met at 03/13/2020 1503 STG Patient will tolerate regular foods with no overt s/sx of airway compromise or dysphag ia at 03/13/2020 1503 Liquid Texture Goal Most Recent Value STG Status met at 03/13/2020 1503 STG Patient will tolerate thin liquids with no overt s/sx of airway compromise or dysphagi a. at 03/13/2020 1503 Additional Goals #1 EMERGENCY MANAGEMENT SPECIALIST Most Recent Value STG Status progressing at 03/13/2020 1503 STG Patient will participate in a cognitive communication assessment to determine severity of impairments and assist in creating an individualized treatment plan. at 03/13/2020 1503 EMERGENCY MANAGEMENT SPECIALIST Time Calculation EMERGENCY MANAGEMENT SPECIALIST Individual Start Time: 1430 EMERGENCY MANAGEMENT SPECIALIST Individual Stop Time: 1503 EMERGENCY MANAGEMENT SPECIALIST Individual Total Time: 33 EMERGENCY MANAGEMENT SPECIALIST Missed Treatment Time: 0 EMERGENCY MANAGEMENT SPECIALIST Total Treatment Time: 33 Timed [place] Code Minutes: 0 Electronically signed by: Shante Contreras, Speech Pathologist, 03/13/2020 5:55 PM PDTElectronbayron rodríguez signed by Shante Contreras Speech Pathologist at 03/13/2020 6:13 PM PDTPlan of Care - Beth Garcia OT - 03/13/2020 9:58 AM PDTFormatting of this note might be different fr om the original. Occupational Therapy Plan of Care Treatment Note Summary: Brooks has been participating in occupational therapy for treatment of Impaired BADLs, decreased basic functional mobility, decreased functional activityy tolerance, impair ed cognition, impaired self-feeding following admit w/ acute metabolic encephalopathy; AKD s tage IV; probable UTI. Pt was found @ home unresponsive, hypoglycemic, toxic metabolic encep halopathy.. Emphasis of session included functional mobility; self-feeding; activity tolera nce. Patient demonstrates progress towards functional goals as evidenced by tolerated incre ased functional activity and required less overall physical assist; participated w/ OT/PT co -treat. Pt did become agitated and angry w/ therapies regarding his perception that we will keep him here against his wishes. He is adamant that he wants to go home, despite his verb alized deficits in mobility (he fluctuates in his observations of his ability- stating "I ca n do this today," followed by "I can't hardly move my arms.") RN cleared patient for participation in therapy. Patient was agreeable to therapy. Patient participated without adverse reaction. RN debriefed on therapy session and patient status. I t is encouraged that the patient be up in chair for all meals. Recommended toileting with nursing: Day Night bedpan bedpan No Assistive Device No Assistive Device with 2 people with 2 people Remaining barriers to discharge and functional limitations include decreased insight into s afety and deficits, decreased functional activity tolerance, decreased bed mobility, decreas ed functional transfers, decreased ability to perform ADLs, unsafe discharge disposition, no t yet able to mobilize at level safe for home discharge, and medical status. Brooks will benefit from continued therapeutic intervention to address ongoing impairments and increase safety and independence with activities necessary for safe discharge. Refer be low for specific details regarding functional levels. Occupational Therapy Discharge Recommendations are: Recommended discharge disposition: shelter facility Post discharge occupational therapy recommendation: ongoing low intensity therapy, will be nefit from structured setting Equipment Recommendations: (TBD) Planned Interventions:ADL retraining, balance training, bed mobility training, cognitive re training, functional endurance training, motor coordination training, patient/family educati on, ROM (Range of Motion), strengthening, transfer training, discharge planning Recommended Frequency: 4 times/wk, 5 times/wk Patient Status/Goals: Reflects last filed data and may be from multiple contributors. ADLs Good set-up of breakfast tray. Pt is generally R-handed for eating but utilized L hand as h is R hand is more weak. Able to load spoon w/ cold cereal/milk and transport to mouth slowl y. Fed self x 3 bites. UEs mobilizing very slowly w/ reduced coordination, strength. Self-Feeding, Level of [place]: moderate assist (50% patient effort), maximal assist ( 25% patient effort), set up required Self-Feeding Impairments: ROM decreased, strength decreased, impaired balance, coordination impaired, motor control impaired, postural control impaired, impaired functional endurance/ activity tolerance Functional Endurance Poor for basic ADLs, mobility. Cognitive Alert and more engaged today. Speech improved, less dysarthric and delayed. Pt lacking in sight as nbao'd by his adamance that he is ready to go home today. He is emotional and cryi ng intermittently that his brother is graduating from a program and "I promised I would be t here." Agitated intermittently and perceives that therapies are trying to keep him here. Re inforced throughout that he is stronger today but still demonstrating significant weakness, deficits that may prohhibit a d/c home as soon as he would like. Speech: difficulty expressing, pace/rate variance, slurred, garbled Bed Mobility Co-treat w/ PT for safety, ,to maximize his mobility, and d/t complex history. Pt required extensive time and effort but had increased independence in his mobility..See PT note for f urther info on status of bed mobility. Assistive Device: bed rails, HOB elevated, draw sheet Transfers Anticipated a transfer from bed to chair once @ EOB. Sling positioned for overhead lift. On initiating positioning of overhead lift, it malfunctioned and would not elevate. Pt not safe for stand-pivot or sliding board transfer d/t profound weakness and decreased motor con trol throughout all extremities and trunk. Safety Issues: sequencing ability decreased, weight-shifting ability decreased Impairments: strength decreased, impaired balance, coordination impaired, motor control imp aired, postural control impaired, pain, sensory feedback impaired ROM Improved today from initial evaluation. Seated EOB, w/ light active assistance, pt is able to flex shoulder to WFL and hold to gravity. He is able to touch nose w/ each hand- slowly and decreased control. Strength Still profoundly weak but improved from yesterday. Grossly 3-/5 OT Goal Review Date Most Recent Value STG Review Date 03/19/20 at 03/12/2020 1524 Eating/Self Feeding Goal Most Recent Value STG Status progressing at 03/13/2020 0958 STG [place] Level minimal assist (75% patient effort) at 03/12/2020 1524 Grooming Goal Most Recent Value STG Status continued at 03/13/2020 0958 STG [place] Level minimum assist (75% patient effort) at 03/12/2020 1524 UB Dressing Goal Most Recent Value STG Status continued at 03/13/2020 0958 STG [place] Level minimum assist (75% patient effort) at 03/12/2020 1524 LB Dressing Goal Most Recent Value STG Status continued at 03/13/2020 0958 STG [place] Level moderate assist (50% patient effort) at 03/12/2020 1524 Toilet Transfer Goal Most Recent Value STG Status continued at 03/13/2020 0958 STG [place] Level minimum assist (75% patient effort) at 03/12/2020 1524 OT Time Calculation OT Additional Treatment Time: Co-treatment OT Co-treatment Start Time: 09 OT Co-treatment Stop Time: 957 OT Co-treatment Total Time: 58 OT Total Treatment Time: 58 Timed [place] Code Minutes: 33 Electronically signed by: Beth Camarillo OT, 03/13/2020 6:16 PM PDT lan of Care - Kin Madelin hahn, PT - 03/13/2020 9:50 AM PDT Physical Therapy Plan of Care Treatment Note Summary: Brooks has been participating in physical therapy for treatment of impaired func tional mobility and transfers following admit for severe acute metabolic encephalopathy. Emphasis of session included bed mobility and static/dynamic balance at EoB. Co-treat with OT to maximize pt safety and participation in setting of profound weakness/deconditioning an d limited capacity for functional activities. Patient demonstrates progress towards function al goals as evidenced by diminished level of assist with bed mobility and pt able to sit ind ependently at EoB with UE support. RN cleared patient for participation in therapy. Patient was agreeable to therapy. Patient participated without adverse reaction. It is encouraged that the patient be up in chair for all meals. Recommended mobility with nursing: Day Night bedside commode bedside commode Overhead Lift Overhead Lift with 2 people with 2 people Remaining barriers to discharge and functional limitations include decreased insight into s afety and deficits, decreased functional activity tolerance, decreased bed mobility, decreas ed functional transfers, not yet able to mobilize at level safe for home discharge, [facility] in dicating significant impairment with basic functional mobility, and medical status. Brooks will benefit from continued therapeutic intervention to address ongoing impairments and increase safety and independence with activities necessary for safe discharge. Refer be low for specific details regarding functional levels. Physical Therapy Discharge Recommendations are: Recommended discharge disposition: other (see comments)(TBD pending progress) Post discharge physical therapy recommendation: ongoing low intensity therapy, will benefi t from structured setting Equipment Recommendations: other (see comments)(TBD) Planned Interventions: balance training, bed mobility training, home exercise program, man ual therapy techniques, neuromuscular re-education, patient/family education, ROM (Range of Motion), strengthening, transfer training, wheelchair management/propulsion training Recommended Frequency: other (see comments)(4-5 times/wk) Patient Status/Goals: Reflects last filed data and may be from multiple contributors. Gait pt non-ambulatory at baseline Transfers planned for transfer to bedside chair with overhead lift, pt able to participate in weight shifting while sitting EoB to allow for positioning of sling, however unable to complete tra nsfer d/t lift not working properly, unsafe to attempt stand-pivot transfer d/t profound wea kness and decreased motor control Bed Mobility improving, pt able to independently roll onto right side and mobilize BLEs over EoB, does r equire min A to stabilize/boost trunk during sidelying>sit, 2P mod A to return to supine Assistive Device: bed rails, HOB elevated, draw sheet Roll Left, Level of [place]: not tested Roll Right, Level of [place]: contact guard assist, verbal cues required, tactile cues required Scoot/Bridge, Level of [place]: dependent ( less than 25% patient effort), 2 person as sist required, verbal cues required, tactile cues required Supine to Sit, Level of [place]: minimal assist (75% patient effort), set up required, verbal cues required, tactile cues required Sit to Supine, Level of [place]: moderate assist (50% patient effort), 2 person assist required, set up required, verbal cues required, tactile cues required Safety Issues: decreased use of arms for pushing/pulling, decreased use of legs for bridgin g/pushing, impaired trunk control for bed mobility Impairments: muscle tone abnormal, decreased flexibility, ROM decreased, strength decreased , impaired balance, coordination impaired, motor control impaired, postural control impaired , other (see comments)(decreased activity tolerance) Balance Sitting Balance: Static: (fair-) Sitting Balance: Dynamic: (poor+) Standing Balance: Static: (not tested) Standing Balance: Dynamic: (not tested) Therapeutic Exercise static/dynamic sitting balance at EoB x ~10 min total, pt able to sit independently with UE support, requires intermittent steadying with lateral weight shifts and min A to return to midline Functional Endurance min improvement however con't to be limited overall PT Goal Review Date Most Recent Value STG Review Date 03/19/20 at 03/12/2020 1525 Roll Left/Right Goal Most Recent Value STG Status progressing at 03/13/2020 0950 STG [place] Level modified independent at 03/12/2020 1525 STG Assistive Device bed rails at 03/12/2020 1525 [id number] Goal Most Recent Value STG Status progressing at 03/13/2020 0950 STG [place] Level minimum assist (75% patient effort) at 03/12/2020 1525 STG Assistive Device bed rails, HOB elevated at 03/12/2020 1525 [id number]-Sga Goal Most Recent Value STG Status new at 03/12/2020 1525 STG [place] Level maximum assist (25% patient effort) at 03/12/2020 1525 STG Assistive Device 2 wheeled walker (FWW) at 03/12/2020 1525 STG Comments stand/squat pivot at 03/12/2020 1525 Balance Sitting Static Goal Most Recent Value STG Status progressing at 03/13/2020 0950 STG Pt will independently maintain sitting balance at EoB x 5 min with UE support. at 02/24 1525 PT Time Calculation PT Additional Treatment Time: Co-treatment PT Co-treatment Start Time: 0900 PT Co-treatment Stop Time: 0950 PT Co-treatment Total Time: 50 PT Total Treatment Time: 50 Timed [place] Code Minutes: 25 Electronically signed by: Madelin Salazar, PT, 03/13/2020 10:18 AM PDT lan of Merna Rose RN - 03/13/2020 2:48 AM PDTPatient alert and oriented x 4. Slurred speech but able to make needs known. Patient continues to have loose stool and frequently sits on bedpan for prolonged periods. Applied barrier cream to buttocks and coccyx. Patient complained of joint pain not relieved by PRN Tylenol. Patient requested PRN Hydrocodone which he normally takes at home. Teleho spitalist, Dr. Griggs was notified and placed an order for it. Patient sleeping intermitten tly during the night. TPlan of Care - Adenike Garcia MSW - 03/12/2020 5:00 PM PDT Problem: Discharge Planning Goal: Patient's discharge needs will be identified in a timely manner Outcome: Ongoing, progressing Goal: Patient will be discharged in a safe manner Outcome: Ongoing, progressing This welfare case worker faxed a referral to [facility] asking them to review the referr al now that patient has worked with PT to see if he would be a candidate for their swing bed . Will await their review and a returned call. Electronically signed by: Edgardo Shay 03/12/2020 5:01 PM PDT This welfare case worker called [facility] to see if swing bed would be a option for thi s patient and spoke with Jenni Staffing Mgr. She would like information sent to her as she did not receive the referral. Faxed her a referral packet to [phone]. She states that s he will have the hospitalist review and Rex welfare case worker, will get back to this CM in the morning. This CM will speak with patient and his mother further if swing bed is a option. Electronic ally signed by: LYDIA Shay 03/13/2020 5:41 PM PDT eICU Note - Elizabet Mckenzie RN - 03/12/2020 4 :03 PM PDTPatient transfer to . Report given to 4E Mtira BRYANT. All questions answered. Alla ent oriented to self, time and place. Moaning, crying out regularly. Very time consuming. Mu litple BM's. Red tray. Poor skin care. Frequent turns, clean ups. Pressure points padded. On tele. VSS, a little hypertensive. Electronically signed by Elizabet Mckenzie RN at 2019 4:05 PM PDTPlan of Care - Madelin Salazar, PT - 03/12/2020 3:25 PM PDTFormatting of th is note might be different from the original. Physical Therapy Plan of Care Initial Evaluation Note Summary: Brooks presents to physical therapy with impaired functional mobility and transf ers following admit for severe acute metabolic encephalopathy. Objective exam reveals impair ments with arousal, attention, and cognition, ergonomics and body mechanics, functional endu jim/activity tolerance, gait, locomotion, and balance, joint integrity and mobility, motor function, muscle performance, neuromotor, and ROM. Co-evaluation with OT d/t complex medica l status, limited capacity for functional activities. Pt willing to participate in light bed mobility but declining further mobility today. Appears grossly deconditioned, anticipate he will likely require extensive 2P assist for basic mobility and may require placement for on going therapy services prior to returning home. RN cleared patient for participation in therapy. Patient was agreeable to therapy. Patient participated without adverse reaction. RN debriefed on therapy session and patient status. Recommended mobility with nursing: Day Night bed cooley bed cooley No Assistive Device No Assistive Device with 2 people with 2 people Barriers to discharge and functional limitations include decreased functional activity tole jim, decreased bed mobility, decreased functional transfers, not yet able to mobilize at l evel safe for home discharge, [facility] indicating significant impairment with basic functional mobility, and medical status. Brooks will benefit from therapeutic intervention to address impairments and increase safet y and independence with activities necessary for safe discharge. Refer below for specific d etails regarding functional levels. Precautions/Limitations: falls Previous Level of Function: Reports mostly Sarahy lift transfers now since wound on L foot prohibits him from standing o n L foot. Has utilized sliding board in the past but because of sacral wounds this is also contraindicated. Reports tries to do a squat pivot on occasion. Reports mother assists him onto the shower seat inside of the tub. Potential available assistance at discharge: Significant Relationships: parent Role Relationships Comment: mother acts as primary caregiver Living Environment/Accessibility: Lives With: mother Living Arrangements: apartment Home Accessibility: ramps present at home Number of Stairs to Enter Home: 0 Number of Stairs Within Home: 0 Living Environment Comment: pt unable to provide info regarding living environment, per not es from previous encounters "has Sarahy lift, hospital bed, shower seat, w/c with stump suppo rt, getting a lift chair/powered shower seat that will lower him into tub if he wants, also has FWW" Patient/Family s Goals: none specifically stated Rehabilitation potential: fair, will monitor progress closely Physical Therapy Discharge Recommendations are: Recommended discharge disposition: other (see comments)(TBD pending progress) Post discharge physical therapy recommendation: ongoing low intensity therapy, will benefi t from structured setting Equipment Recommendations: other (see comments)(TBD) Planned Interventions: balance training, bed mobility training, home exercise program, man ual therapy techniques, neuromuscular re-education, patient/family education, ROM (Range of Motion), strengthening, transfer training, wheelchair management/propulsion training Recommended Frequency: other (see comments)(4-5 times/wk) Patient Status/Goals: Reflects last filed data and may be from multiple contributors. Transfers not tested this session Bed Mobility pt participated in light bed mobility for positioning of bed pain, requires assist to bend LLE and cues to roll to each side however able to do so with min physical assist Assistive Device: bed rails, draw sheet Roll Left, Level of [place]: minimal assist (75% patient effort), verbal cues required , tactile cues required Roll Right, Level of [place]: minimal assist (75% patient effort), verbal cues require d, tactile cues required Scoot/Bridge, Level of [place]: dependent ( less than 25% patient effort), 2 person as sist required, set up required, verbal cues required, tactile cues required Safety Issues: decreased use of arms for pushing/pulling, decreased use of legs for bridgin g/pushing, impaired trunk control for bed mobility Impairments: muscle tone abnormal, decreased flexibility, ROM decreased, strength decreased , coordination impaired, motor control impaired, pain Functional Endurance poor for min functional activities, pt somewhat self-limiting ROM L LE ROM: limited throughout d/t increased tone, pain R LE ROM: grossly WFL for R BKA Strength L LE Strength: poor, <2/5 throughout R LE Strength: poor, 2/5 throughout PT Goal Review Date Most Recent Value STG Review Date 03/19/20 at 03/12/2020 1525 Roll Left/Right Goal Most Recent Value STG Status new at 03/12/2020 1525 STG [place] Level modified independent at 03/12/2020 1525 STG Assistive Device bed rails at 03/12/2020 1525 [id number] Goal Most Recent Value STG Status new at 03/12/2020 1525 STG [place] Level minimum assist (75% patient effort) at 03/12/2020 1525 STG Assistive Device bed rails, HOB elevated at 03/12/2020 1525 [id number] Goal Most Recent Value STG Status new at 03/12/2020 1525 STG [place] Level maximum assist (25% patient effort) at 03/12/2020 1525 STG Assistive Device 2 wheeled walker (FWW) at 03/12/2020 1525 STG Comments stand/squat pivot at 03/12/2020 1525 Balance Sitting Static Goal Most Recent Value STG Status new at 03/12/2020 1525 STG Pt will independently maintain sitting balance at EoB x 5 min with UE support. at 02/24 1525 PT Time Calculation PT Additional Treatment Time: Co-treatment PT Co-treatment Start Time: 1445 PT Co-treatment Stop Time: 1525 PT Co-treatment Total Time: 40 PT Total Treatment Time: 40 Timed [place] Code Minutes: 10 Electronically signed by: Madelin Salazar, PT, 03/12/2020 4:43 PM PDT lan of Care - Beth Camarillo, OT - 03/12/20 20 3:24 PM PDT Occupational Therapy Plan of Care Initial Evaluation, Treatment Note Summary: Brooks presents to occupational therapy with Impaired BADLs, decreased basic fun ctional mobility, decreased functional activityy tolerance, impaired cognition, impaired aguilar f-feeding following admit w/ acute metabolic encephalopathy; AKD stage IV; probable UTI. Pt was found @ home unresponsive, hypoglycemic, toxic metabolic encephalopathy.. Objective exa m reveals impairments with arousal, attention, and cognition, ergonomics and body mechanics, functional endurance/activity tolerance, gait, locomotion, and balance, joint integrity and mobility, motor function, muscle performance, neuromotor, ROM. Pt is profoundly weak in al l areas. Speech is very impaired, delayed, slurred. He will require extensive recovery yulia or to consideration of returning home. Pt is high risk to develop further wound sites and o r exacerbation of those present. RN cleared patient for participation in therapy. [...] nal transfers, decreased ability to perform ADLs, unsafe discharge disposition, not yet able to mobilize at level safe for home discharge, and medical status. Brooks will benefit from therapeutic intervention to address impairments and increase safet y and independence with activities necessary for safe discharge. Refer below for specific d etails regarding functional levels. Precautions/Limitations: falls Precaution Comment: Multiple wounds in various stages of healing. High risk for further br eakdown. Has hx of L foot wound, not visualized this visit- dressed w/ pink foam dressing. Previous Level of Function: From previous hospital stay- Reports mostly Sarahy lift transfers now since wound on L foot prohibits him from standing on L foot. Has utilized sliding board in the past but because o f sacral wounds this is also contraindicated. Reports tries to do a squat pivot on occasion . Reports mother assists him onto the shower seat inside of the tub. Will require updated PLOF. Potential available assistance at discharge: Significant Relationships: parent Role Relationships Comment: mother acts as primary caregiver Living Environment/Accessibility: Lives With: mother Living Arrangements: apartment Home Accessibility: ramps present at home Number of Stairs to Enter Home: 0 Number of Stairs Within Home: 0 Living Environment Comment: pt unable to provide info regarding living environment, per not es from previous encounters "has Sarahy lift, hospital bed, shower seat, w/c with stump suppo rt, getting a lift chair/powered shower seat that will lower him into tub if he wants, also has FWW" Patient/Family s Goals: None stated by the pt this visit. Rehabilitation potential: fair, will monitor progress closely Occupational Therapy Discharge Recommendations are: Recommended discharge disposition: shelter facility Post discharge occupational therapy recommendation: ongoing low intensity therapy, will be nefit from structured setting Equipment Recommendations: TBD Planned Interventions:ADL retraining, balance training, bed mobility training, cognitive re training, functional endurance training, motor coordination training, patient/family educati on, ROM (Range of Motion), strengthening, transfer training, discharge planning Recommended Frequency: 4 times/wk, 5 times/wk Patient Status/Goals: Reflects last filed data and may be from multiple contributors. ADLs Limited ADLs this visit. Pt requested placement of bedpan so participate in bed mobility. Functional Endurance Poor for basic ADLs, mobility. Cognitive Alert to self. Reported remembering this OT from previous hospital stay. REcalled month. Frustrated that he could not use the white board for orientation questions initially, could n't see it when able to use it. Rambling @ times. Speech: difficulty expressing, pace/rate variance, slurred, garbled Bed Mobility Co-evaluation w/ PT d/t profound weakness, safety. See PT evaluation for further info on s tatus. Pt mobility very compromised but participatory in order to place bedpan @ his reques t. Transfers Not safe @ this time. Profoundly weak in all areas. Pt was assisted onto bedpan. Toilet, Level of [place]: dependent ( less than 25% patient effort), 2 person assist r equired, verbal cues required ROM ROM from supine. Anticipate reduction in active mvmts when sitting more upright. L UE ROM: P/AAROM WFL- active shoulder flexion 80* very weakly; WFL elbow flex/ext; IR/ER f rom supine; wrist flex/ext WFL; finger flex/ext WFL very weakly R UE ROM: P/AAROM WFL- active shoulder [id number]*; elbow 40*; WFL IR/ER from supine; WFL wr ist flex/ext; WFL finger flex, reduced finger ext. Strength Profound weakness in all areas. L UE Strength: Grossly 2-/5 R UE Strength: Grossly 2-/5 OT Goal Review Date Most Recent Value STG Review Date 03/19/20 at 03/12/2020 1524 Eating/Self Feeding Goal Most Recent Value STG Status new at 03/12/2020 1524 STG [place] Level minimal assist (75% patient effort) at 03/12/2020 1524 Grooming Goal Most Recent Value STG Status new at 03/12/2020 1524 STG [place] Level minimum assist (75% patient effort) at 03/12/2020 1524 UB Dressing Goal Most Recent Value STG Status new at 03/12/2020 1524 STG [place] Level minimum assist (75% patient effort) at 03/12/2020 1524 LB Dressing Goal Most Recent Value STG Status new at 03/12/2020 1524 STG [place] Level moderate assist (50% patient effort) at 03/12/2020 1524 Toilet Transfer Goal Most Recent Value STG Status new at 03/12/2020 1524 STG [place] Level minimum assist (75% patient effort) at 03/12/2020 1524 OT Time Calculation OT Additional Treatment Time: Co-treatment OT Co-treatment Start Time: 144 OT Co-treatment Stop Time: 1524 OT Co-treatment Total Time: 40 OT Total Treatment Time: 40 Timed TX Code Minutes: 10 Electronically signed by: Beth Camarillo, OT, 03/12/2020 5:58 PM PDT lan of Care - Michel Chisholm RDN - 03/12/2020 1:03 PM PDT NUTRITION THERAPY NOTE Summary: Alin's diet now advanced to renal consistent CHO regular texture diet with thin liquids. He is eating 90-100% of meals. Nutritional supplements are provided tid. Intake at this time appears to be meeting his assessed needs. Will continue to f/u to provide supp lements, adjust diet to include his preferences/tolerances and provide MNT prior to d/c. Estimated Energy and Protein Needs: (based on 67 kg) Kcal needs: 4079-1683 Kcals/day Protein needs:75-90 grams of protein/day Fluid goal:4056-4190 cc fluid per day Nutrition Diagnosis: Severe protein-calorie malnutrition Type, Severe: Chronic illness Weight Loss: Greater than 7.5% in 3 months Energy Intake: Other (see comment)(NPO at this time) Body Fat: Severe depletion Muscle Mass: Severe depletion Nutrition Plan of Care: Nutrition Diagnosis: Malnutrition, inadequate protein-energy intake related to poor mentat ion as evidenced by unintended 15% weight loss and protein and fat loss. Interventions: 1. Nutritional supplements tid 2. Menu adjusted to meet his preferences/tolerances Nutrition Goals: 1. Intake to meet assessed needs 2. Weight gain over time 3. Improved DM management Monitor: 1. Intake 2. Nutrition related concerns F/u in 5 days. Available as needed, ext [phone] Assessment: Diet Order: For your reference, the current active diet order is: Diet renal; thin liquids allowed; consistent carbohydrate; Effective Now Recent Labs 03/12/20 0309 03/11/20 1607 03/11/20 0406 03/10/20 0412 NA 143 140 142 < > 148* K 3.9 4.8 3.9 < > 4.5 CL 110* 109* 112* < > 113* BUN 62* 62* 65* < > 62* CREA 4.35* 4.32* 4.39* < > 4.52* ALBUMIN 2.3* -- 2.2* -- 2.5* MG -- -- 1.8 -- 1.8 PHOS 7.2* -- 8.0* -- 8.6* < > = values in this interval not displayed. Anthropometrics: Weight: 67.4 kg (148 lb 9.4 oz) Wt Readings from Last 3 Encounters: 03/12/20 67.4 kg (148 lb 9.4 oz) 02/21/20 75.1 kg (165 lb 9.1 oz) 01/09/20 79 kg (174 lb 2.6 oz) Body mass index is 19.08 kg/m. Weight change: First: 61 kg (03/09/20 0045)Last: 67.4 kg (03/12/20 0150)Difference: 6.4kg Electronically Signed by: MICHEL GORDON RDN 03/12/2020 1:03 PM PDT lan of Care - Shante Contreras, Speech Pathologist - 03/12/2020 12:12 PM PDT Speech Therapy Swallow Plan of Care EMERGENCY MANAGEMENT SPECIALIST Visit Type: Treatment Note Summary: Brooks has been participating in speech therapy for treatment of Swallow WNL. Emp hasis of session included diet check during lunch meal to ensure diet tolerance with advance d textures. Patient consumed regular solids and thin liquids with COIL TIER assist with no overt s /sx of airway compromise or dysphagia. Patient continues to present with suspected cognitive communication impairments characterized by delayed verbal responses, slow effortful speech. He is able to express needs/wants/questions with effort. Occasional repetitions needed to c learly state. This EMERGENCY MANAGEMENT SPECIALIST suspects possible neurological component vs acute metabolic encephalo clover as an etiology, however, further in-depth imaging needed to determine presence. Consid er neurology workup e.g. MRI vs other imaging as no imaging of the head has been completed y et. Upcoming session will address cognitive communication. Patient demonstrates progress tow ards functional goals as evidenced by swallow WNL. Remaining barriers to Communication, Cogn ition, Motor Speech, and Swallow include comorbidities. Brooks will benefit from continued therapeutic intervention to address ongoing impairments and increase safety and independence. Refer below for specific details regarding specifics of session and impairments. Speech Language Pathology Discharge Recommendations are: Recommended discharge disposition: needs 24 hour supervision/assist Post discharge speech language pathology recommendation: continue EMERGENCY MANAGEMENT SPECIALIST tx for communication Planned Interventions: Planned Therapy Interventions: diet texture modification, home prog kanwal instruction, patient/caregiver education Recommended Frequency: 4 times/wk, 5 times/wk EMERGENCY MANAGEMENT SPECIALIST Diagnosis: Swallow WNL At bedside, signs of aspiration included: None Risk of aspiration: None/WNL Swallow Recommendations Recommended Solid Texture: regular, other (see comments)(Regular foods but cut up into bite -sized pieces) Recommended Liquid Texture: thin liquids, ice chips OK Recommended Medication Delivery: crushed pills with puree, if able, whole pills with puree, whole pills with thin liquids Recommended Feeding/Eating Techniques: one small sip or bite at a time, maintain upright po sture during/after eating for 30 mins, monitor for signs of aspiration, alternate between sm all bites and sips of food/liquid, 1:1 feeding, other (see comments)(Patient can self feed s ome but needs intermittent assistance with bringing food to mouth.) Dysphagia Goal Most Recent Value STG Status met at 03/12/2020 1211 STG Patient will continue to participate in clinical bedside swallow evaluation to upgrade to PO diet. at 03/12/2020 1211 Solid Texture Goal Most Recent Value STG Status met at 03/12/2020 1211 STG Patient will tolerate regular foods with no overt s/sx of airway compromise or dysphag ia at 03/12/2020 1211 Liquid Texture Goal Most Recent Value STG Status met at 03/12/2020 1211 STG Patient will tolerate thin liquids with no overt s/sx of airway compromise or dysphagi a. at 03/12/2020 1211 Additional Goals #1 EMERGENCY MANAGEMENT SPECIALIST Most Recent Value STG Status new at 03/12/2020 1211 STG Patient will participate in a cognitive communication assessment to determine severity of impairments and assist in creating an individualized treatment plan. at 03/12/2020 1211 Electronically signed by: Shante Contreras, Speech Pathologist, 03/12/2020 2:16 PM PDTElectroni marcos signed by Shante Contreras Speech Pathologist at 03/12/2020 2:33 PM PDTPlan of [facility] Charla pleitez RN - 03/12/2020 4:49 AM PDTA/O to self and place only, speech slurred with slow response time. Continuous c/o chronic pain issues and frequently cries out for pain med ications/cares. Fentanyl patch in place and PRN Tylenol given. Multiple loose stools this sh ift, C. Diff negative, isolation precautions DC'd. Dressing to coccyx and buttock wounds re placed, barrier cream to surrounding tissue applied. BG's elevated (300's), continues on D5L R gtt. [facility] Siobhan Koch RN - 03/11/2020 7:37 PM PDTPatient stable. A&Ox2, forgetful. Limite d extremity strength (weak, poor muscle tone), RBKA. VSS on room air, no fever. Tylenol effe ctive for pain control in addition to fentanyl patch. Behavior improved in the evening, lala ent is argumentative at times, delayed response. Midline patent, no s/sx of infection. Parul ated meals. 1:1 Red tray, diet advanced. Trending labs, on IV anbx. Enteric contact precauti ons in place, pending C.Diff lab results d/t watery stools. Mother and a brother visited ear lier, no signs of abuse noted, family supportive. Mother of patient states d/t "gastroparesi s", patient continues to have loose stools and "can't keep anything down". SSI for hyperglyc emia (200-300s BG). Fall and seizure precautions in place. Fall mats in place. No falls repo rted, patient not impulsive, repositioned frequent, frequent rounding. lan of Care - GarciaAdenike, MS W - 03/11/2020 12:08 PM PDTCase Management/Discharge Planning: This CM spoke with Alin's mother, Samantha, as she approached this CM at the nurses station. 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 She said when she had her stroke two years ago, he cam e to [place] to be with her and has since stayed. She is now his paid director of primary care, helping him. She states that she feels his care has been going well at home. She said she does have to make sure Alin knows there is a time she is his mother and a time that she is his caregi ana. She said that he is compliant with his meds so she questions why he got into this state and had to be re-hospitalized. Samantha states that the goal is for him to be able to go home again. We dicussed the option for [facility] as it is in a hospital setting and in his home town. Samantha would b e open to this option. She said that the welfare case worker at [facility], Jenni, knows Alin very well. She states that he would adamantly refuse a shelter facility so this may be a option if he needs continued therapies, nutrition, etc. prior to going home. Will ask [facility] for PT/OT evals. Additionally, Samantha states that he has seen a die mechanic at [facility] and between him and h is PCP, they feel a palliative care approach would be the best for him. With his gastropares is, diabetes, kidney failure, his mother would like to see how Palliative care could work wi th him for symptom/pain management. This CM let Samantha know that we only have in palliati e care/cancer center and not a outpatient team at this time, she understands but had the imp ression that we had an outpatient palliative care team. Sticky note left for hospitalist. CM will need to continue to see how patient progresses and work with he and his mother for a safe discharge plan. PLAN: Home with mother and resumption of [facility] vs [facility] se[facility] Bed if appropriate? CM to follow. Electronically signed by: LYDIA Shay 03/11 12:24 PM PDT lan of Care - Ham by, Shante Willis, Speech Pathologist - 03/11/2020 12:00 PM PDTFormatting of this note might be di fferent from the original. Speech Therapy Swallow Plan of Care EMERGENCY MANAGEMENT SPECIALIST Visit Type: Treatment Note Summary: Brooks has been participating in speech therapy for treatment of Swallow WNL. Emp hasis of session included full swallow assessment as patient was willing to participate. Ora l motor exam revealed facial symmetry intact, lingual ROM WNL, dry/sticky oral mucosa, denti tion present with several missing in multiple areas and remaining in poor condition. Overall poor oral health/hygiene. Patient challenged with ice chips x4 successfully, thin by cup an d straw x6 successfully, pureed solid x3 successfully, soft chopped x3 successfully, and 1/4 peanut butter jelly sandwich successfully with no overt s/sx of airway compromise. Good rot ational chewing observed with all solids despite missing dentition. Good clearance of bolus. Patient did need assistance from clinician intermittently due to hand/arm weakness. Patient could benefit from 1:1 RED TRAY for assistance as needed but encourage independence with ea lisa. EMERGENCY MANAGEMENT SPECIALIST reviewed recommendations for upright posture, frequent and thorough oral care, nee d for assistance. He verbalized understanding of recommendations. Further cognitive communic ation assessment may be needed. Patient using slowed verbal responses, slowed and effortful speech, decreased speech intelligibility. Patient demonstrates progress towards functional g oals as evidenced by improved participation and swallow. Remaining barriers to Communication , Cognition, and Swallow include comorbidities. Consider referral to OT for ADL needs. Brooks will benefit from continued therapeutic intervention to address ongoing impairments and increase safety and independence. Refer below for specific details regarding specifics of session and impairments. International Dysphagia Diet Standardization Initiative (IDDSI): Brooks is currently at Food Level 7, Regular and Drink Level 0, Thin. 1:1 RED TRAY For more information, please visit: http://iddsi.org Speech Language Pathology Discharge Recommendations are: Recommended discharge disposition: needs 24 hour supervision/assist Post discharge speech language pathology recommendation: continue EMERGENCY MANAGEMENT SPECIALIST tx for dysphagia Planned Interventions: Planned Therapy Interventions: diet texture modification, home prog kanwal instruction, patient/caregiver education Recommended Frequency: 4 times/wk, 5 times/wk EMERGENCY MANAGEMENT SPECIALIST Diagnosis: Swallow WNL At bedside, signs of aspiration included: None Risk of aspiration: None/WNL Swallow Recommendations Recommended Solid Texture: regular, other (see comments)(Regular foods but cut up into bite -sized pieces) Recommended Liquid Texture: thin liquids, ice chips OK Recommended Medication Delivery: crushed pills with puree, if able, whole pills with puree, whole pills with thin liquids Recommended Feeding/Eating Techniques: one small sip or bite at a time, maintain upright po sture during/after eating for 30 mins, monitor for signs of aspiration, alternate between sm all bites and sips of food/liquid, 1:1 feeding, other (see comments)(Patient can self feed s ome but needs intermittent assistance with bringing food to mouth.) Ice Chips Most Recent Value Comments x4 at 03/11/2020 1200 Mode of Presentation spoon, fed by clinician at 03/11/2020 1200 Volume(s) Presented (mL) patient controlled volumes at 03/11/2020 1200 Oral Phase Results intact oral phase without signs of dysfunction at 03/11/2020 1200 Pharyngeal Phase Results safe swallow, no signs/symptoms of aspiration or penetration at 0 03/11/2020 1200 Thin Liquids Most Recent Value Mode of Presentation fed by clinician, self fed, cup, straw at 03/11/2020 1200 Volume(s) Presented (mL) patient controlled volumes at 03/11/2020 1200 Oral Phase Results intact oral phase without signs of dysfunction at 03/11/2020 1200 Pharyngeal Phase Results safe swallow, no signs/symptoms of aspiration or penetration at 0 03/11/2020 1200 Puree Most Recent Value Mode of Presentation fed by clinician, self fed, spoon at 03/11/2020 1200 Volume(s) Presented (mL) patient controlled volumes at 03/11/2020 1200 Oral Phase Results intact oral phase without signs of dysfunction at 03/11/2020 1200 Pharyngeal Phase Results safe swallow, no signs/symptoms of aspiration or penetration at 0 03/11/2020 1200 Solid Most Recent Value Mode of Presentation fed by clinician, self fed, spoon at 03/11/2020 1200 Volume(s) Presented (mL) patient controlled volumes at 03/11/2020 1200 Oral Phase Results intact oral phase without signs of dysfunction at 03/11/2020 1200 Pharyngeal Phase Results safe swallow, no signs/symptoms of aspiration or penetration at 0 03/11/2020 1200 Other (see comments) Most Recent Value Comments chopped at 03/11/2020 1200 Mode of Presentation self fed, fed by clinician, spoon at 03/11/2020 1200 Volume(s) Presented (mL) patient controlled volumes at 03/11/2020 1200 Oral Phase Results intact oral phase without signs of dysfunction at 03/11/2020 1200 Pharyngeal Phase Results safe swallow, no signs/symptoms of aspiration or penetration at 0 03/11/2020 1200 Dysphagia Goal Most Recent Value STG Status met at 03/11/2020 1200 STG Patient will continue to participate in clinical bedside swallow evaluation to upgrade to PO diet. at 03/11/2020 1200 Solid Texture Goal Most Recent Value STG Status new at 03/11/2020 1200 STG Patient will tolerate regular foods with no overt s/sx of airway compromise or dysphag ia at 03/11/2020 1200 Liquid Texture Goal Most Recent Value STG Status new at 03/11/2020 1200 STG Patient will tolerate thin liquids with no overt s/sx of airway compromise or dysphagi a. at 03/11/2020 1200 Electronically signed by: Shante Contreras, Speech Pathologist, 03/11/2020 1:37 PM PDTElectroni marcos signed by Shante Contreras Speech Pathologist at 03/11/2020 1:58 PM PDTPlan of Polo Reddy Chaplain - 03/11/2020 10:59 AM PDT Spiritual Care Brooks Marquez is a 29 y.o. male who is admitted for Altered Mental Status. Irish Moss Operator visit is in response to routine rounding Spiritual Evaluation: Alin appears to struggle expressing his needs. His mother Gia, at his bedside, appear s supportive. She states they have no spiritual or rastafarian practices, yet she acknowledges comfort knowing lead web developer support is available to her son. Spiritual Interventions: I offer a supportive presence to both Alin and his mother. Spiritual Outcomes: Alin's mother expresses gratitude, while alin appears comforted by his mother's presence. Spiritual Goals/Follow-up: Spiritual Care to follow upon request lan of Annie Howard A, RN - 03/11/2020 8:39 AM PDTAl mercy "Alin" has been oriented to self for me, he is confused to date, time and situation. Tanika guerra moans frequently and has trouble expressing his words, they are very slow and slurred expr essions. He is able to answer yes/no questions and look me in the eyes and follow some brief commands. He remains NPO, however he requested peanut butter and jelly through the night. V ital signs have remained stable on room air, 5 mg of Metoprolol given x 1 for elevated diast olic blood pressure. lan Care - Nan Kurtz RN - 03/10/2020 5:40 PM PDTAlin is alert to self only. HR tachycardic, lung sounds diminished on room air. Bowel tones hypoactive. Red rash to coccyx and scrotum, antifungal cream applied. Frequent turning and repositioning. In ap parent pain, Fentanyl patch applied to right upper back. Family updated, vitals stable. Wou nd consult pending. lan [facility] - Radha Andersen, Speech Pathologist - 03/10/2020 5:27 PM PDT Speech Therapy Swallow Plan of Care EMERGENCY MANAGEMENT SPECIALIST Visit Type: Initial Evaluation Note Summary: 29 y.o. male with severe acute metabolic encphalopathy with history of CKD 4, HT N, chronic pain, gastroparesis, type 1 diabetes s/p right BKA who presents after being found down. Minimally able to participate in clinical bedside swallow evaluation at this time. Pe r RN pt calling out earlier wanting to eat. Patient was not agreeable to ice chips or water trials. Speech was intermittently intelligi ble, but mostly severely slurred and unable to actually tell if pt was attempting to verbali ze or just cry/whine/ shout out. Patient currently appears safe for pleasure PO trials of pu ree textures when alert; unable to maintain adequate alertness for full meal at this time. U azael to assess swallow abilities with liquids do to pt refusal. Brooks will benefit from continued therapeutic intervention to address ongoing impairments and increase safety and independence. Refer below for specific details regarding specifics of session and impairments. Non Instrumental/Clinical Swallow Exam Consistencies Trialed: puree Puree - Bedside Swallowing Mode of Presentation: spoon Volume(s) Presented (mL): 3 mL, 1 mL Oral Phase Results: intact oral phase without signs of dysfunction Pharyngeal Phase Results: safe swallow, no signs/symptoms of aspiration or penetration Oral Motor Structure and Function Oral Motor Structure and Function General Impairment: Unable to fully assess. Dentition Assessment: dentition impacting ability to chew some foods, poor hygiene, signifi cant number missing teeth, teeth are in poor condition, other (see comments)(teeth that are present are rotting and in very poor condition) Speech Language Pathology Discharge Recommendations are: Recommended discharge disposition: needs 24 hour supervision/assist Post discharge speech language pathology recommendation: continue EMERGENCY MANAGEMENT SPECIALIST tx for dysphagia Planned Interventions: Planned Therapy Interventions: diet texture modification, home prog kanwal instruction Recommended Frequency: 5 times/wk EMERGENCY MANAGEMENT SPECIALIST Diagnosis: Oral dysphagia with increased risk of aspiration secondary to altered menta l status At bedside, signs of aspiration included: none Risk of aspiration: Mild due to altered level of alertness with quick fluctuation Swallow Recommendations Recommended Solid Texture: dysphagia stim, other (see comments)(pleasure PO intake of 1/2 t sp of puree when alert) Recommended Liquid Texture: no liquids Recommended Medication Delivery: crushed pills with puree, if able, non-oral medication del omar Puree Most Recent Value Mode of Presentation spoon at 03/10/2020 1753 Volume(s) Presented (mL) 3 mL, 1 mL at 03/10/2020 1753 Oral Phase Results intact oral phase without signs of dysfunction at 03/10/2020 1753 Pharyngeal Phase Results safe swallow, no signs/symptoms of aspiration or penetration at 0 03/10/2020 1753 Dysphagia Goal Most Recent Value STG Status new at 03/10/2020 1726 STG Patient will continue to participate in clinical bedside swallow evaluation to upgrade to PO diet. at 03/10/2020 1726 Electronically signed by: Radha Andersen Speech Pathologist, 03/10/2020 5:55 PM PDTElectr onically signed by Radha Andersen Speech Pathologist at 03/10/2020 6:05 PM PDTPlan of Mariama Canales 03/10/2020 3:34 PM PDTDischarge Planning: This CM Asst spoke with Alin's mother Gia via phone regarding discharge plans. Alin is in the ICU and unable to answer questions at this time. Alin lives in [place] with his mother Gia. There is a ramp to enter the home. No st eps inside the home. The bathroom has a tub shower. They have been recently approved to have a walk in shower installed. Alin has a hospital bed, lift recliner and a sarahy lift. Gia reports that Alin has been very weak for months. She reports she "thought he was finally getting his strength back and then this happened." Gia is Alin's state paid caregiver. She assists him with all his ADL's. Alin is whee lchair bound with a Rt BKA and he is unable to bear weight on his left foot so she has to as sist him with transfers from bed to wheelchair and wheelchair to recliner. She reports Alin is normally able to feed himself. He has red styrofoam overweaver/mutuel cashier for his silverware. She reports "his normal cognition is that of like her and I and he can carry on conversation s." Gia supervises Alin when taking his medications at 0600 and 1800. She reports she just received a new pill box that will alarm when his medicines are due an d call his phone if he forgets to take them. She will start using this when he comes home. Alin has current [facility] nursing and bath aid. Alin's mom reports she wants him to return home and resume Home Health when medically stab le for discharge. Alin will need Medicaid transport arranged with [facility] [phone] w hen medically stable for discharge. Dispo: Home with mother and resumption of [facility]. Electronically signed by: Mariama Fleming 03/10/2020 3:48 PM PDT lan of Care - Polo Garcia Chaplain - 03/10/2020 3:32 PM PDT Spiritual Care Brooks Marquez is a 29 y.o. male who is admitted for Altered Mental Status. Irish Moss Operator visit is in response to routine rounding Spiritual Evaluation: Alin appears to offer no meaningful communication at this time. His mother Gia and hi s brother hope to be here tomorrow morning for a visit. She acknowledged over the phone that Alin grew up with no spiritual or rastafarian practices yet believes he recently has begun t o search for meaning and purpose to his life. Spiritual Interventions: I offered a supportive presence to both Alin by his hospital bed and his mother over the p hugh Spiritual Outcomes: Neither Alin nor his mother expresses any spiritual, rastafarian or emotional needs at this time Spiritual Goals/Follow-up: Spiritual Care will follow upon request. lan of Umm Cobb RN - 03/10/2020 6:00 AM PDTKeit tanika is Alert but oriented to self only. Opens his eyes and can tell me his name but does not f ollow any commands. Keeps crying out for help, is intermittently tearful, Continuously groan ing and squirms around in bed. Ativan .5mg given 1x. Managing BP w/PRN Metoprolol and Hydral azine. BP hard to manage d/t extreme agitation. Dr. Barnes aware of agitation but concerne d about giving any more Ativan until MRI is done this am. Critical Phosphorus-8.6 and procal citonin- 39.38. In NSR/Sinus tachycardia, HR 90's-110's. All other VSS on RA. 400ml Cloudy/y ellow UO via camarena. eIC U Note - Elizabet Mckenzie RN - 03/09/2020 4:17 PM PDTPatient [facility]. Patient was admitted last night after being found with severe mentati on change, relatively unresponsive except for nonverbal moaning. Symptoms have not improved. Dependent. NPO. Camarena with cloudy urine. LP done. MRI possibility. Multiple wounds; assesse d, cleaned and dressed. Right BKA. Will continue to monitor. lan of Care - Danae Rhodes LICSW - 020 1:54 PM PDTCase Management / Discharge Planning: Pt currently unable to participate in any meaningful discussion about potential discharge n eeds. Chart reviewed, pt has had recent hospitalizations 02/15/20 - 02/21/20 and 01/06/20 - 01/10/20 20. Per case management note from 02/15/20, Alin lives with his mother who is his PCG. They li ve in [place]. Per note report, pt has a hospital bed, sarahy lift, and a wheelchair at home. He was disch arged on 02/21/20 with [facility] (RN - Sheron). Plan: CM following Gather more history on patient home / care situation given multiple hospitalizations. CM follow up with [facility] - does pt have a welfare case worker? Has there been any APS history? Is [facility] still involved? Home situation? Electronically signed by: TREMAINE Jones 03/09/2020 2:11 PM PDT lan of Guilherme - Antonino Purcell RN - 03/09/2020 9:07 AM PDT Problem: Skin Injury Risk Increased Goal: Skin Health and Integrity Outcome: Ongoing, not progressing Problem: Fall Injury Risk Goal: Absence of Fall and Fall-Related Injury Outcome: Ongoing, not progressing Problem: Adult Inpatient Plan of Care Goal: Plan of Care Review Outcome: Ongoing, not progressing Goal: Patient-Specific Goal Outcome: Ongoing, not progressing Goal: Absence of Hospital-Acquired Illness or Injury Outcome: Ongoing, not progressing Goal: Optimal Comfort and Wellbeing Outcome: Ongoing, not progressing Goal: Readiness for Transition of Care Outcome: Ongoing, not progressing Goal: Rounds/Family Conference Outcome: Ongoing, not progressing Problem: Diabetes Comorbidity Goal: Blood Glucose Level Within Desired Range Outcome: Ongoing, not progressing Problem: Hypertension Comorbidity Goal: Blood Pressure in Desired Range Outcome: Ongoing, not progressing Problem: Adjustment to Illness (Chronic Kidney Disease) Goal: Optimal Coping with Chronic Illness Outcome: Ongoing, not progressing Problem: Electrolyte Imbalance (Chronic Kidney Disease) Goal: Electrolyte Balance Outcome: Ongoing, not progressing Problem: Functional Decline (Chronic Kidney Disease) Goal: Optimal Functional Ability Outcome: Ongoing, not progressing Problem: Oral Intake Inadequate (Chronic Kidney Disease) Goal: Optimal Oral Intake Outcome: Ongoing, not progressing Problem: Renal Function Impairment (Chronic Kidney Disease) Goal: Laboratory Values and Blood Pressure Within Desired Range Outcome: Ongoing, not progressing Problem: Mobility Impairment Goal: Optimal Mobility Outcome: Ongoing, not progressing Only verbalization noted this am was "I need help, please" repeatedly. Continued to moan/c ry out throughout the night. Only direction followed was slight squeeze w/lt hand to command . Very restless turning to rt and lt side repeatedly. Legs kept extended, arms kept flexed. Heart rate regular and tachy. Breath sounds diminished anterior and posterior hassan. On ro om air w/sats high 90's to 100. Remained NPO d/t level of alertness and inability to follow directions. [facility] reported stool incontinence on arrival to their ED. Camarena placed at [facility], urine output on arrival to [facility] was minimal w/urine whitish yellow and sligh tly thickened. Skin very dry/flaky, very unkempt/unshaven. Wound lateral lt foot w/dry wound bed. Sacral/groin area w/excoriation/redness. Intact blister to rt upper buttock, foam dres sing in place. IV sites x2 on arrival. IV fluids initiated on arrival, initially NS infused, later changed to LR. First dose of Rocephin given, first dose of Heparin SQ given. Lab unab le to draw blood from peripheral site, required RN to draw from IV site and LAC. Blood cultu res drawn as well as multiple labs. Urine sent to lab as ordered by . Procalcitonin noted to be 4.23. CT of chest/abdomen/pelvis as well as lt foot completed. Seizure pads added to r ails to protect pt/skin. Narcan given w/o change in pt's mentation. Continues to turn side t o side, hanging rt stump over side rail. Lips/oral mucosa very dry w/evidence of dried blood on lips on arrival to hospital. Gums appear reddened and swollen documented in this encounter Plan of Treatment +--------+---------+ + + + | Date | Type | Specialty | Care Team | Description | +--------+---------+ + + + | 05/07/ | Office | Nephrology | Winston Whitman MD | | | 2019 | Visit | | [address] [facility] | | | | | | [address] | | | | | | [id number] | | | | | | | [...] | EXTRA LAVENDER TOP | Routin | 03/14/2020 | | [...] documented in this encounter Results POC Glucose (03/14/2020 12:21 PM PDT) + +---------+ + + + | Component | Value | Ref Range | Performed | Pathologist | | | | | At | Signature | + +---------+ + + + | Glucose, | 200 (H) | 70 - 109 mg/dL | [facility] | | | POC | | | [facility] | | | | | | [facility] [...] [address] | [place] | [phone] | | [facility] | | [address] | | | - LABORATORY | | | | + + + + + POC Glucose (03/14/2020 7:44 AM PDT) + +-------+ + + + | Component | Value | Ref Range | Performed | Pathologist | | | | | At | Signature | + +-------+ + + + | Glucose, | 86 | 70 - 109 mg/dL | [facility] [...] [facility] | [address] | [place] | [phone] | | [facility] | | [address] | | | - LABORATORY | | | | + + + + + POC Glucose (03/14/2020 6:59 AM PDT) + +--------+ + + + | Component | Value | Ref Range | Performed | Pathologist | | | | | At | Signature | + +--------+ + + + | Glucose, | 42 (L) | 70 - 109 mg/dL | [facility] [...] [address] | [place] | [phone] | | [facility] | | [address] | | | - LABORATORY | | | | + + + + + POC Glucose (03/14/2020 6:44 AM PDT) + +--------+ + + + [...] [address] | [place] | [phone] | | [facility] | | [address] | | | - LABORATORY | | | | + + + + + Extra Lavender Top Tube (03/14/2020 3:32 AM PDT) + +-------+ + + + [...] + | [facility] | [address] | [place] | [phone] | | [facility] | | [address] | | | - LABORATORY | | | | + + + + + Renal Function Panel (03/14/2020 3:32 AM PDT) + + + + + + | Component | Value | Ref Range | Performed | Pathologist | | | | | At | Signature | + + + + + + | Na | 141 | 136 - 145 | [facility] | | | | | mmol/L | [facility] | | | [facility] | | [facility]ICAL | | | | | | CENTER - | | | | | | LABORATORY | | + + + + + + | K | 4.6 | 3.4 - 5.1 | [facility] | | | | | mmol/L | [facility] | | | | | | [facility]ICAL | | | | | | CENTER - | | | | | | LABORATORY | | + + + + + + | Cl | 112 (H) | 98 - 107 mmol/L | [facility] | | | | | | [facility] | | | | | | [facility]ICAL | | | | | | CENTER - | | | | | | LABORATORY | | + + + + + + | CO2 | 21 | 20 - 31 mmol/L | [facility] | | | | | | [facility] | | | | | | [facility]ICAL | | | | | | CENTER - | | | | | | LABORATORY | | + + + + + + | Anion Gap | 8 | 3 - 16 mmol/L | [facility] | | | | | | [facility] | | | | | | MEDICAL [...] | | | | | | [facility] | | | | | | MEDICAL | | | | | | CENTER - | | | | | | LABORATORY | | + + + + + + | Creatinine | 4.24 (H) | 0.70 - 1.30 | [facility] | | | | | mg/dL | [facility] | | | | | | MEDICAL | | | | | | CENTER - | | | | | | LABORATORY | | + + + + + + | eGFR if not | 17 (L)Comment: | >=60 | [facility] | | | | GLOMERULAR FILTRATION | mL/min/1.73m2 | [facility] | | | [place] | RATE,ESTIMATED | | MEDICAL | | | | mL/min/1.14g4Fiiq than | | CENTER - | | [...] [facility] | | | | | | [facility] | | | | | | CENTER - | | | | | | LABORATORY | | + + + + + + | Phosphorus | 6.2 (H) | 2.4 - 5.1 mg/dL | [facility] | | | | | | [facility] | | | | | | MEDICAL | | | | | | CENTER - | | | | | | LABORATORY | | + + + + + + | BUN/Creatin | 14.9 | | [facility] | | | ine Ratio | | | [facility] | | | | | | MEDICAL [...] + | [facility] | [address] | [place] | [phone] | | [facility] | | [address] | | | - LABORATORY | | | | + + + + + POC Glucose (03/13/2020 10:00 PM PDT) + +---------+ + + + | Component | Value | Ref Range | Performed | Pathologist | | | | | At | Signature | + +---------+ + + + | Glucose, | 163 (H) | 70 - 109 mg/dL | [...] + | [facility] | [address] | [place] | [phone] | | [facility] | | [address] | | | - LABORATORY | | | | + + + + + POC Glucose (03/13/2020 5:48 PM PDT) + +---------+ + + + | Component | Value | Ref Range | Performed | Pathologist | | | | | At | Signature | + +---------+ + + + | Glucose, | 239 (H) | 70 - 109 mg/dL | [...] + + | Performing | Address | City/State/[facility] | Phone Number | | Organization | | | | + + + + + | [facility] | [address] | [place] | [phone] | | [facility] | | [address] | | | - LABORATORY | | | | + + + + + POC Glucose (03/13/2020 11:38 AM PDT) + +---------+ + + + [...] [address] | [place] | [phone] | | [facility] | | [address] | | | - LABORATORY | | | | + + + + + POC Glucose (03/13/2020 6:48 AM PDT) + +---------+ + + + | Component | Value | Ref Range | Performed | Pathologist | | | | | At | Signature | + +---------+ + + + | Glucose, | 156 (H) | 70 - 109 mg/dL | [facility] | | | POC | | | [facility] | | | | | | MEDICAL [...] [address] | [place] | [phone] | | [facility] | | [address] | | | - LABORATORY | | | | + + + + + Extra Lavender Top Tube (03/13/2020 3:41 AM PDT) + +-------+ + + + [...] [address] | [place] | [phone] | | [facility] | | [address] | | | - LABORATORY | | | | + + + + + Renal Function Panel (03/13/2020 3:41 AM PDT) + + + + + + | Component | Value | Ref Range | Performed | Pathologist | | | | | At | Signature | + + + + + + | Na | 141 | 136 - 145 | [facility] | | | | | mmol/L | [facility] | | | | | | MEDICAL | | | | | | CENTER - | | | | | | LABORATORY | | + + + + + + | K | 4.2 | 3.4 - 5.1 | [facility] | | | | | mmol/L | [facility] | | | | | | MEDICAL | | | | | | CENTER - | | | | | | LABORATORY | | + + + + + + | Cl | 110 (H) | 98 - 107 mmol/L | [facility] | | | | | | [facility] | | | | | | MEDICAL | | | | | | CENTER - | | | | | | LABORATORY | | + + + + + + | CO2 | 22 | 20 - 31 mmol/L | [facility] | | | | | | [facility] | | | | | | MEDICAL | | | | | | CENTER - | | | | | | LABORATORY | | + + + + + + | Anion Gap | 9 | 3 - 16 mmol/L | [facility] | | | | | | [facility] | | | | | | [facility]ICAL | | | | | | CENTER - | | | | | | LABORATORY | | + + + + + + | Glucose | 183 (H) | 60 - 106 mg/dL | [facility] | | | | | | [facility] | | | | | | MEDICAL | | | | | | CENTER - | | | | | | LABORATORY | | + + + + + + | BUN | 60 (H) | 9 - 23 mg/dL | [facility] | | | | | | [facility] | | | | | | [facility]ICAL | | | | | | CENTER - | | | | | | LABORATORY | | + + + + + + | Creatinine | 4.25 (H) | 0.70 - 1.30 | [facility] | | | | | mg/dL | [facility] | | | | | | MEDICAL | | | | | | CENTER - | | | | | | LABORATORY | | + + + + + + | eGFR if not | 17 (L)Comment: | >=60 | [facility] | | | | GLOMERULAR FILTRATION | mL/min/1.73m2 | [facility] | | | [place] | RATE,ESTIMATED | | MEDICAL | | | | mL/min/1.36z4Socz than | | CENTER - | | [...] 7.2 (L) | 8.7 - 10.4 | [facility] [...] + + + + | BUN/Creatin | 14.1 | | [facility] | | | ine [...] ST. | [address] | [place], [place] | [phone] | | [facility] | | [address] | | | - LABORATORY | | | | + + + + + POC Glucose (03/12/2020 10:05 PM PDT) + +---------+ + + + | Component | Value | Ref Range | Performed | Pathologist | | | | | At | Signature | + +---------+ + + + | Glucose, | 259 (H) | 70 - 109 mg/dL | [facility] | | | POC | | | [facility] | | | | | | MEDICAL [...] [address] | [place] | [phone] | | [facility] | | [address] | | | - LABORATORY | | | | + + + + + POC Glucose (03/12/2020 5:39 PM PDT) + +---------+ + + + | Component | Value | Ref Range | Performed | Pathologist | | | | | At | Signature | + +---------+ + + + | Glucose, | 273 (H) | 70 - 109 mg/dL | [address] | [place] | [phone] | | [facility] | | [address] | | | - LABORATORY | | | | + + + + + POC Glucose (03/12/2020 11:47 AM PDT) + +---------+ + + + | Component | Value | Ref Range | Performed | Pathologist | | | | | At | Signature | + +---------+ + + + | Glucose, | 357 (H) | 70 - 109 mg/dL | [...] [address] | [place] | [phone] | | [facility] | | [address] | | | - LABORATORY | | | | + + + + + POC Glucose (03/12/2020 6:42 AM PDT) + +---------+ + + + | Component | Value | Ref Range | Performed | Pathologist | | | | | At | Signature | + +---------+ + + + | Glucose, | 288 (H) | 70 - 109 mg/dL | [facility] | | | POC | | | [facility] | | | | | | MEDICAL [...] [address] | [place] | [phone] | | [facility] | | [address] | | | - LABORATORY | | | | + + + + + Renal Function Panel (03/12/2020 3:09 AM PDT) + + + + + [...] | | | | | | [facility] | | | | | | MEDICAL | | | | | | CENTER - | | | | | | LABORATORY | | + + + + + + | CO2 | 24 | 20 - 31 mmol/L | [facility] | | | | | | [facility] | | | | | | MEDICAL | | | | | | CENTER - | | | | | | LABORATORY | | + + + + + + | Anion Gap | 9 | 3 - 16 mmol/L | [facility] | | | | | | [facility] | | | | | | MEDICAL | | | | | | CENTER - | | | | | | LABORATORY | | + + + + + + | Glucose | 249 (H) | 60 - 106 mg/dL | [facility] | | | | | | [facility] | | | | | | MEDICAL | | | | | | CENTER - | | | | | | LABORATORY | | + + + + + + | BUN | 62 (H) | 9 - 23 mg/dL | [facility] | | | | | | [facility] | | | | | | MEDICAL | | | | | | CENTER - | | | | | | LABORATORY | | + + + + + + | Creatinine | 4.35 (H) | 0.70 - 1.30 | [facility] | | | | | mg/dL | [facility] | | | | | | MEDICAL | | | | | | CENTER - | | | | | | LABORATORY | | + + + + + + | eGFR if not | 16 (L)Comment: | >=60 | [facility] | | | | GLOMERULAR FILTRATION | mL/min/1.73m2 | [facility] | | | [place] | RATE,ESTIMATED | | MEDICAL | | | | mL/min/1.52i5Srjx than | | CENTER - | | [...] + + + + | Phosphorus | 7.2 (H) | 2.4 - 5.1 mg/dL | [facility] | | | | | | [facility] | | | | | | MEDICAL | | | | | | CENTER - | | | | | | LABORATORY | | + + + + + + | BUN/Creatin | 14.3 | | [facility] | | | ine [...] [address] | [place] | [phone] | | [facility] | | [address] | | | - LABORATORY | | | | + + + + + POC Glucose (03/11/2020 8:38 PM PDT) + +---------+ + + + | Component | Value | Ref Range | Performed | Pathologist | | | | | At | Signature | + +---------+ + + + | Glucose, | 304 (H) | 70 - 109 mg/dL | [facility] | | | POC | | | [facility] | | | | | | MEDICAL [...] + | [facility] | [address] | [place] | [phone] | | [facility] | | [address] | | | - LABORATORY | | | | + + + + + POC Glucose (03/11/2020 4:38 PM PDT) + +---------+ + + + | Component | Value | Ref Range | Performed | Pathologist | | | | | At | Signature | + +---------+ + + + | Glucose, | 326 (H) | 70 - 109 mg/dL | [facility] | | | POC | | | [facility] | | | | | | [...] ST. | [address] | [place], [place] | [phone] | | [facility] | | [address] | | | - LABORATORY | | | | + + + + + Basic Metabolic Panel (03/11/2020 4:07 PM PDT) + + + + + + | Component | Value | Ref Range | Performed | Pathologist | | | | | At | Signature | + + + + + + | Na | 140 | 136 - 145 | [facility] | | | | | mmol/L | [facility] | | | | | | MEDICAL | | | | | | CENTER - | | | | | | LABORATORY | | + + + + + + | K | 4.8 | 3.4 - 5.1 | [facility] | | | | | mmol/L | [facility] | | | | | | MEDICAL | | | | | | CENTER - | | | | | | LABORATORY | | + + + + + + | Cl | 109 (H) | 98 - 107 mmol/L | [facility] | | | | | | [facility] | | | | | | MEDICAL | | | | | | CENTER - | | | | | | LABORATORY | | + + + + + + | CO2 | 22 | 20 - 31 mmol/L | [facility] | | | | | | [facility] | | | | | | MEDICAL | | | | | | CENTER - | | | | | | LABORATORY | | + + + + + + | Anion Gap | 9 | 3 - 16 mmol/L | [facility] | | | | | | [facility] | | | | | | MEDICAL | | | | | | CENTER - | | | | | | LABORATORY | | + + + + + + | Glucose | 299 (H) | 60 - 106 mg/dL | [facility] | | | | | | [facility] | | | | | | MEDICAL | | | | | | CENTER - | | | | | | LABORATORY | | + + + + + + | BUN | 62 (H) | 9 - 23 mg/dL | [facility] | | | | | | [facility] | | | | | | MEDICAL | | | | | | CENTER - | | | | | | LABORATORY | | + + + + + + | Creatinine | 4.32 (H) | 0.70 - 1.30 | [facility] | | | | | mg/dL | [facility] | | | | | | MEDICAL | | | | | | CENTER - | | | | | | LABORATORY | | + + + + + + | eGFR if not | 16 (L)Comment: | >=60 | [facility] | | | | GLOMERULAR FILTRATION | mL/min/1.73m2 | [facility] | | | [place] | RATE,ESTIMATED | | MEDICAL | | | | mL/min/1.72q7Qesj than | | CENTER - | | [...] | | | | | mg/dL | [facility] | | | | | | MEDICAL | | | | | | CENTER - | | | | | | LABORATORY | | + + + + + + | BUN/Creatin | 14.4 | | [facility] | | | ine Ratio | | | [facility] | | | | | | MEDICAL [...] [address] | [place] | [phone] | | [facility] | | [address] | | | - LABORATORY | | | | + + + + + Clostridioides difficile NAAT Reflex (03/11/2020 3:59 PM PDT) + + + + + + | Component | Value | Ref Range | Performed | Pathologist | | | | | At | Signature | + + + + + + | C. | NegativeComment: No | Negative | [facility] | | | difficile, | Toxigenic C. difficile | | [facility] | | | Interp | detected. Consider [...] | | difficile, | | | [facility] | | | NAAT | | | [...] [address] | [place] | [phone] | | [facility] | | [address] | | | - LABORATORY | | | | + + + + + POC Glucose (03/11/2020 11:08 AM PDT) + +---------+ + + + | Component | Value | Ref Range | Performed | Pathologist | | | | | At | Signature | + +---------+ + + + | Glucose, | 136 (H) | 70 - 109 mg/dL | [facility] | | | POC | | | [facility] | | | | | | MEDICAL [...] + | [facility] | [address] | [place] | [phone] | | [facility] | | [address] | | | - LABORATORY | | | | + + + + + POC Glucose (03/11/2020 7:35 AM PDT) + +-------+ + + + | Component | Value | Ref Range | Performed | Pathologist | | | | | At | Signature | + +-------+ + + + | Glucose, | 107 | 70 - 109 mg/dL | [facility] | | | POC | | | [facility] | | | | | | [...] [address] | [place] | [phone] | | [facility] | | [address] | | | - LABORATORY | | | | + + + + + CBC with Differential (03/11/2020 4:07 AM PDT) + + + + + [...] | | | | g/dL | [facility] | | | | | | MEDICAL | | | | | | CENTER - | | | | | | LABORATORY | | + + + + + + | Hematocrit | 29.2 (L) | 40.0 - 51.0 % | [facility] | | | | | | [facility] | | | | | | MEDICAL | | | | | | CENTER - | | | | | | LABORATORY | | + + + + + + | MCV | 93.3 | 83.0 - 101.0 fL | [facility] | | | | | | [facility] | | | | | | MEDICAL | | | | | | CENTER - | | | | | | LABORATORY | | + + + + + + | MCH | 29.4 | 28.0 - 35.0 pg | [facility] | | | | | | [facility] | | | | | | MEDICAL | | | | | | CENTER - | | | | | | LABORATORY | | + + + + + + | MCHC | 31.5 (L) | 32.0 - 36.0 | [facility] | | | | | g/dL | [facility] | | | | | | MEDICAL | | | | | | CENTER - | | | | | | LABORATORY | | + + + + + + | RDW-CV | 15.8 (H) | <15.0 % | [facility] | | | | | | [facility] | | | | | | MEDICAL | | | | | | CENTER - | | | | | | LABORATORY | | + + + + + + | RDW-SD | 54.1 (H) | 35.1 - 46.3 fL | [facility] | | | | | | [facility] | | | | | | MEDICAL | | | | | | CENTER - | | | | | | LABORATORY | | + + + + + + | Platelet | 256 | 140 - 440 K/uL | [facility] | | | Count | | | [facility] | | | | | | MEDICAL | | | | | | CENTER - | | | | | | LABORATORY | | + + + + + + | MPV | 12.9 (H) | 6.5 - 12.4 fL | [facility] | | | | | | [facility] | | | | | | MEDICAL | | | | | | CENTER - | | | | | | LABORATORY | | + + + + + + | % | 73.4 | 45.0 - 82.0 % | [facility] | | | Neutrophils | | | [facility] | | | | | | MEDICAL | | | | | | CENTER - | | | | | | LABORATORY | | + + + + + + | % | 18.1 (L) | 20.0 - 45.0 % | [facility] | | | Lymphocytes | | | [facility] | | | | | | MEDICAL | | | | | | CENTER - | | | | | | LABORATORY | | + + + + + + | % Monocytes | 5.9 | 4.0 - 12.0 % | [facility] | | | | | | [facility] | | | | | | MEDICAL | | | | | | CENTER - | | | | | | LABORATORY | | + + + + + + | % | 1.4 | 0.0 - 5.0 % | [facility] | | | Eosinophils | | | [facility] | | | | | | MEDICAL | | | | | | CENTER - | | | | | | LABORATORY | | + + + + + + | % Basophils | 0.4 | 0.0 - 1.0 % | [facility] | | | | | | [facility] | | | | | | MEDICAL | | | | | | CENTER - | | | | | | LABORATORY | | + + + + + + | % Immature | 0.8 (H)Comment: | 0.0 - 0.4 % | [facility] | | | Granulocyte | Preliminary studies have | | [facility] | | | s | indicated the [...] | Basophils | | K/uL | [facility] | | | | | | MEDICAL | | | | | | CENTER - | | | | | | LABORATORY | | + + + + + + | Absolute | 0.11 (H) | 0.00 - 0.03 | [facility] | | | Immature | | K/uL | [facility] | | | Granulocyte | | | MEDICAL | | | s | | | CENTER - | | | | | | LABORATORY | | + + + + + + | % nRBC | 0 | 0 - 2 per 100 | [facility] | | | | | WBCs | [facility] | | | | | | MEDICAL [...] [address] | [place] | [phone] | | [facility] | | [address] | | | - LABORATORY | | | | + + + + + B Type Natriuretic Peptide (03/11/2020 4:06 AM PDT) + + + + + + | Component | Value | Ref Range | Performed | Pathologist | | | | | At | Signature | + + + + + + | BNP | 246 (H)Comment: New | <100 pg/mL | [facility] | | | | method in use as of | | [facility] | | | | November 22, 2018. [...] + | [facility] | [address] | [place] | [phone] | | [facility] | | [address] | | | - LABORATORY | | | | + + + + + Comprehensive Metabolic Panel (03/11/2020 4:06 AM PDT) + + + + + + | Component | Value | Ref Range | Performed | Pathologist | | | | | At | Signature | + + + + + + | Na | 142 | 136 - 145 | [facility] | | | | | mmol/L | [facility] | | | | | | MEDICAL | | | | | | CENTER - | | | | | | LABORATORY | | + + + + + + | K | 3.9 | 3.4 - 5.1 | [facility] | | | | | mmol/L | [facility] | | | | | | MEDICAL | | | | | | CENTER - | | | | | | LABORATORY | | + + + + + + | Cl | 112 (H) | 98 - 107 mmol/L | [facility] | | | | | | [facility] | | | | | | MEDICAL | | | | | | CENTER - | | | | | | LABORATORY | | + + + + + + | CO2 | 24 | 20 - 31 mmol/L | [facility] | | | | | | [facility] | | | | | | MEDICAL | | | | | | CENTER - | | | | | | LABORATORY | | + + + + + + | Anion Gap | 6 | 3 - 16 mmol/L | [facility] | | | | | | [facility] | | | | | | MEDICAL | | | | | | CENTER - | | | | | | LABORATORY | | + + + + + + | Glucose | 143 (H) | 60 - 106 mg/dL | [facility] | | | | | | [facility] | | | | | | MEDICAL | | | | | | CENTER - | | | | | | LABORATORY | | + + + + + + | BUN | 65 (H) | 9 - 23 mg/dL | [facility] | | | | | | [facility] | | | | | | MEDICAL | | | | | | CENTER - | | | | | | LABORATORY | | + + + + + + | Creatinine | 4.39 (H) | 0.70 - 1.30 | [facility] | | | | | mg/dL | [facility] | | | | | | MEDICAL | | | | | | CENTER - | | | | | | LABORATORY | | + + + + + + | eGFR if not | 16 (L)Comment: | >=60 | [facility] | | | | GLOMERULAR FILTRATION | mL/min/1.73m2 | [facility] | | | [place] | RATE,ESTIMATED | | MEDICAL | | | | mL/min/1.36h0Tzip than | | CENTER - | | [...] | | | | | | [facility] | | | | | | MEDICAL | | | | | | CENTER - | | | | | | LABORATORY | | + + + + + + | Bilirubin | <0.2 (L) | 0.3 - 1.2 mg/dL | [facility] | | | Total | | | [facility] | | | | | | MEDICAL | | | | | | CENTER - | | | | | | LABORATORY | | + + + + + + | Total | 5.2 (L) | 5.7 - 8.2 g/dL | [facility] | | | Protein | | | [facility] | | | | | | MEDICAL | | | | | | CENTER - | | | | | | LABORATORY | | + + + + + + | AST | 29 | 0 - 34 U/L | [facility] | | | | | | [facility] | | | | | | MEDICAL | | | | | | CENTER - | | | | | | LABORATORY | | + + + + + + | ALT | 12 | 10 - 49 U/L | [facility] | | | | | | [facility] | | | | | | MEDICAL | | | | | | CENTER - | | | | | | LABORATORY | | + + + + + + | Alkaline | 118 (H) | 46 - 116 U/L | [facility] | | | Phosphatase | | | [facility] | | | | | | MEDICAL | | | | | | CENTER - | | | | | | LABORATORY | | + + + + + + | Globulin | 3.0 | 2.1 - 3.8 g/dL | [facility] | | | | | | [facility] | | | | | | MEDICAL | | | | | | CENTER - | | | | | | LABORATORY | | + + + + + + | Albumin/Maria Del Carmen | 0.7 (L) | 0.8 - 1.9 | [facility] | | | bulin Ratio | | | [facility] | | | | | | MEDICAL | | | | | | CENTER - | | | | | | LABORATORY | | + + + + + + | BUN/Creatin | 14.8 | | [facility] | | | ine Ratio | | | [facility] | | | | | | MEDICAL [...] [address] | [place] | [phone] | | [facility] | | [address] | | | - LABORATORY | | | | + + + + + Phosphorus (03/11/2020 4:06 AM PDT) + + + + + + | Component | Value | Ref Range | Performed | Pathologist | | | | | At | Signature | + + + + + + | Phosphorus | 8.0 ()Comment: | 2.4 - 5.1 mg/dL | [facility] | | | | Consistent with previous | | [facility] | | | | results. | [...] [address] | [place] | [phone] | | [facility] | | [address] | | | - LABORATORY | | | | + + + + + Magnesium (03/11/2020 4:06 AM PDT) + +-------+ + + + | Component | Value | Ref Range | Performed | Pathologist | | | | | At | Signature | + +-------+ + + + | Magnesium | 1.8 | 1.6 - 2.6 mg/dL | [facility] | | | | | | [facility] [...] [address] | [place] | [phone] | | [facility] | | [address] | | | - LABORATORY | | | | + + + + + Procalcitonin (03/11/2020 4:06 AM PDT) + + + + + + | Component | Value | Ref Range | Performed | Pathologist | | | | | At | Signature | + + + + + + | Procalciton | 36.20 ()Comment: | <=0.50 ng/mL | [facility] | | | in | Critical Result called | | [facility] | | | | to and read [...] | | | ng/mL:Procalcitonin | | [facility] | | | | levels below 0.50 [...] [address] | [place] | [phone] | | [facility] | | [address] | | | - LABORATORY | | | | + + + + + POC Glucose (03/10/2020 9:51 PM PDT) + +---------+ + + + | Component | Value | Ref Range | Performed | Pathologist | | | | | At | Signature | + +---------+ + + + | Glucose, | 166 (H) | 70 - 109 mg/dL | [facility] | | | POC | | | [facility] | | | | | | MEDICAL [...] [address] | [place] | [phone] | | [facility] | | [address] | | | - LABORATORY | | | | + + + + + Procalcitonin (03/10/2020 6:11 PM PDT) + + + + + + | Component | Value | Ref Range | Performed | Pathologist | | | | | At | Signature | + + + + + + | Procalciton | 34.71 ()Comment: | <=0.50 ng/mL | [facility] | | | in | Consistent with previous | | [facility] | | | | results. | | MEDICAL | | | | | | CENTER - | | | | | | LABORATORY | | + + + + + + | Comment | Comment: < 0.50 | | [facility] | | | | ng/mL:Procalcitonin | | [facility] | | | | levels below 0.50 [...] [address] | [place] | [phone] | | [facility] | | [address] | | | - LABORATORY | | | | + + + + + POC Glucose (03/10/2020 4:34 PM PDT) + +---------+ + + + | Component | Value | Ref Range | Performed | Pathologist | | | | | At | Signature | + +---------+ + + + | Glucose, | 164 (H) | 70 - 109 mg/dL | [...] [address] | [place] | [phone] | | [facility] | | [address] | | | - LABORATORY | | | | + + + + + POC Glucose (03/10/2020 11:44 AM PDT) + +-------+ + + + | Component | Value | Ref Range | Performed | Pathologist | | | | | At | Signature | + +-------+ + + + | Glucose, | 79 | 70 - 109 mg/dL | [facility] [...] [address] | [place] | [phone] | | [facility] | | [address] | | | - LABORATORY | | | | + + + + + Lactic Acid (03/10/2020 8:41 AM PDT) + +-------+ + + + | Component | Value | Ref Range | Performed | Pathologist | | | | | At | Signature | + +-------+ + + + | Lactate | 1.1 | 0.5 - 2.2 | [facility] | | | | | mmol/L | [facility] | | | | | | MEDICAL [...] + | [facility] | [address] | [place] | [phone] | | [facility] | | [address] | | | - LABORATORY | | | | + + + + + Basic Metabolic Panel (03/10/2020 8:41 AM PDT) + + + + + + | Component | Value | Ref Range | Performed | Pathologist | | | | | At | Signature | + + + + + + | Na | 144 | 136 - 145 | [facility] | | | | | mmol/L | [facility] | | | | | | MEDICAL | | | | | | CENTER - | | | | | | LABORATORY | | + + + + + + | K | 4.3 | 3.4 - 5.1 | [facility] | [...] + + + | CO2 | 20 | 20 - 31 mmol/L | [facility] | | | | | | [facility] | | | | | | MEDICAL | | | | | | CENTER - | | | | | | LABORATORY | | + + + + + + | Anion Gap | 10 | 3 - 16 mmol/L | [facility] | | | | | | [facility] | | | | | | MEDICAL [...] + + + + | BUN | 60 (H) | 9 - 23 mg/dL | [facility] | | | | | | [facility] | | | | | | MEDICAL | | | | | | CENTER - | | | | | | LABORATORY | | + + + + + + | Creatinine | 4.52 (H) | 0.70 - 1.30 | [facility] | | | | | mg/dL | [facility] | | | | | | MEDICAL | | | | | | CENTER - | | | | | | LABORATORY | | + + + + + + | eGFR if not | 15 (L)Comment: | >=60 | [facility] | | | | GLOMERULAR FILTRATION | mL/min/1.73m2 | [facility] | | | [place] | RATE,ESTIMATED | | MEDICAL | | | | mL/min/1.96w2Azwz than | | CENTER - | | [...] + + + + | BUN/Creatin | 13.3 | | [facility] | | | ine [...] ST. | [address] | [place], [place] | [phone] | | [facility] | | [address] | | | - LABORATORY | | | | + + + + + POC Glucose (03/10/2020 8:03 AM PDT) + +-------+ + + + | Component | Value | Ref Range | Performed | Pathologist | | | | | At | Signature | + +-------+ + + + | Glucose, | 72 | 70 - 109 mg/dL | [facility] [...] [address] | [place] | [phone] | | [facility] | | [address] | | | - LABORATORY | | | | + + + + + Culture, Blood (03/10/2020 7:33 AM PDT) + + + + + + | Component | Value | Ref Range | Performed | Pathologist | | | | | At | Signature | + + + + + + | Culture | No growth after 5 days | | [facility] | | | | incubation. | | [facility] | | | [...] [address] | [place] | [phone] | | [facility] | | [address] | | | - LABORATORY | | | | + + + + + Culture, Blood (03/10/2020 7:26 AM PDT) + + + + + + | Component | Value | Ref Range | Performed | Pathologist | | | | | At | Signature | + + + + + + | Culture | No growth after 5 days | | [facility] | | | | incubation. | | [facility] | | | | | | MEDICAL | | | | | | CENTER - | | | | | | LABORATORY | | + + + + + + + + | Specimen | + + | Blood - Swab of line | | insertion site | | (specimen) | + + + + + + + | Performing | Address | City/State/Zipcode | Phone Number | | Organization | | | | + + + + + | [facility] | [address] | [place] | [phone] | | [facility] | | [address] | | | - LABORATORY | | | | + + + + + XR Chest AP Portable (03/10/2020 6:02 AM PDT) + + | Specimen | [...] + Beta Hydroxybutyrate, Quant (03/10/2020 4:12 AM PDT) + + + + + [...] + | [facility] | [address] | [place] | [phone] | | [facility] | | [address] | | | - LABORATORY | | | | + + + + + Renal Function Panel (03/10/2020 4:12 AM PDT) + + + + + + | Component | Value | Ref Range | Performed | Pathologist | | | | | At | Signature | + + + + + + | Na | 148 (H) | 136 - 145 | [facility] | | | | | mmol/L | [facility] | | | | | | MEDICAL | | | | | | CENTER - | | | | | | LABORATORY | | + + + + + + | K | 4.5 | 3.4 - 5.1 | [facility] | | | | | mmol/L | [facility] | | | | | | [facility] | | | | | | C[facility] - | | | | | | LABORATORY | | + + + + + + | Cl | 113 (H) | 98 - 107 mmol/L | [facility] | | [facility] | | [facility] | [facility] | [facility] | | | | | | CENTER - | | | | | | LABORATORY | | + + + + + + | CO2 | 21 | 20 - 31 mmol/L | [facility] | [facility] | | [facility] | | | MEDICAL | | | | | | CENTER - | | | | | | LABORATORY | | + + + + + + | Anion Gap | 14 | 3 - 16 mmol/L | [facility] | | | | | | [facility]ICAL | | | | | | CENTER - | | | | | | LABORATORY | | + + + + + + | Glucose | 86 | 60 - 106 mg/dL | [facility] | | [facility] | | | | | | [facility]ICAL | | | | | | CENTER - | | | | | | LABORATORY | | + + + + + + | BUN | 62 (H) | 9 - 23 mg/dL | [facility] | [facility] | | | | | | [facility] | | | | | | CENTER - | | | | | | LABORATORY | | + + + + + + | Creatinine | 4.52 (H) | 0.70 - 1.30 | [facility] | | | | | mg/dL | [facility] | | | | | | MEDICAL | | | | | | CENTER - | | | | | | LABORATORY | | + + + + + + | eGFR if not | 15 (L)Comment: | >=60 | [place] | | | | GLOMERULAR FILTRATION | mL/min/1.73m2 | [facility] | | | [place] | RATE,ESTIMATED | | MEDICAL | | | | mL/min/1.88o8Rbjf than | | CENTER - | | [...] + + + + | Calcium | 7.6 (L) | 8.7 - 10.4 | [facility] | | | | | mg/dL | [facility] | | | | | | MEDICAL | | | | | | CENTER - | | | | | | LABORATORY | | + + + + + + | Albumin | 2.5 (L) | 3.2 - 4.8 g/dL | [facility] | | | | | | [facility] | | | | | | MEDICAL | | | | | | CENTER - | | | | | | LABORATORY | | + + + + + + | Phosphorus | 8.6 ()Comment: | 2.4 - 5.1 mg/dL | [facility] | | | | Critical Result called | | [facility] | | | | to and read back by [facility] | | MEDICAL | | | | Edgardo Jaime RN on | | CENTER - | | | | 03/10/2020 at 5:10 AM PDT | | LABORATORY | | | | by Stefano Fofana. | | | | + + + + + + | BUN/Creatin | 13.7 | | [facility] | | | ine [...] [address] | [place] | [phone] | | [facility] | | [address] | | | - LABORATORY | | | | + + + + + Magnesium (03/10/2020 4:12 AM PDT) + +-------+ + + + | Component | Value | Ref Range | Performed | Pathologist | | | | | At | Signature | + +-------+ + + + | Magnesium | 1.8 | 1.6 - 2.6 mg/dL | [facility] | | | | | | [facility] [...] [address] | [place] | [phone] | | [facility] | | [address] | | | - LABORATORY | | | | + + + + + B Type Natriuretic Peptide (03/10/2020 4:11 AM PDT) + + + + + + | Component | Value | Ref Range | Performed | Pathologist | | | | | At | Signature | + + + + + + | BNP | 273 (H)Comment: New | <100 pg/mL | [facility] | | | | method in use as of | | [facility] | | | | November 22, 2018. [...] + | [facility] | [address] | [place] | [phone] | | [facility] | | [address] | | | - LABORATORY | | | | + + + + + Procalcitonin (03/10/2020 4:11 AM PDT) + + + + + + | Component | Value | Ref Range | Performed | Pathologist | | | | | At | Signature | + + + + + + | Procalciton | 39.38 ()Comment: | <=0.50 ng/mL | [facility] | | | in | Critical Result called | | [facility] | | | | to and read back by [facility] | | MEDICAL | | | | Egdardo Jaime RN on | | CENTER - | | | | 03/10/2020 at 5:20 AM PDT | | LABORATORY | | | | by Stefano Fofana. | | | | + + + + + + | Comment | Comment: < 0.50 | | [facility] | | | | ng/mL:Procalcitonin | | [facility] | | | | levels below 0.50 [...] [address] | [place] | [phone] | | [facility] | | [address] | | | - LABORATORY | | | | + + + + + CBC with Differential (03/10/2020 4:11 AM PDT) + + + + + + | Component | Value | Ref Range | Performed | Pathologist | | | | | At | Signature | + + + + + + | WBC | 17.2 (H) | 4.0 - 11.0 K/uL | [facility] | | | | | | [facility] | | | | | | MEDICAL | | | | | | CENTER - | | | | | | LABORATORY | | + + + + + + | RBC | 3.50 (L) | 4.30 - 5.70 | [facility] | | | | | M/uL | [facility] | | | | | | MEDICAL | | | | | | CENTER - | | | | | | LABORATORY | | + + + + + + | Hemoglobin | 10.1 (L) | 13.5 - 18.0 | [facility] | | | | | g/dL | [facility] | | | | | | MEDICAL | | | | | | CENTER - | | | | | | LABORATORY | | + + + + + + | Hematocrit | 31.8 (L) | 40.0 - 51.0 % | [facility] | | | | | | [facility] | | | | | | [facility]ICAL | | | | | | CENTER - | | | | | | LABORATORY | | + + + + + + | MCV | 90.9 | 83.0 - 101.0 fL | [facility] | | | | | | [facility] | | | | | | MEDICAL | | | | | | CENTER - | | | | | | LABORATORY | | + + + + + + | MCH | 28.9 | 28.0 - 35.0 pg | [facility] | | | | | | [facility] | | | | | | MEDICAL | | | | | | CENTER - | | | | | | LABORATORY | | + + + + + + | MCHC | 31.8 (L) | 32.0 - 36.0 | [facility] | | | | | g/dL | [facility] | | | | | | MEDICAL | | | | | | CENTER - | | | | | | LABORATORY | | + + + + + + | RDW-CV | 15.5 (H) | <15.0 % | [facility] | | | | | | [facility] | | | | | | MEDICAL | | | | | | CENTER - | | | | | | LABORATORY | | + + + + + + | RDW-SD | 50.7 (H) | 35.1 - 46.3 fL | [facility] | | | | | | [facility] | | | | | | MEDICAL | | | | | | CENTER - | | | | | | LABORATORY | | + + + + + + | Platelet | 290 | 140 - 440 K/uL | [facility] | | | Count | | | [facility] | | | | | | MEDICAL | | | | | | CENTER - | | | | | | LABORATORY | | + + + + + + | MPV | 13.2 (H) | 6.5 - 12.4 fL | [facility] | | | | | | [facility] | | | | | | MEDICAL | | | | | | CENTER - | | | | | | LABORATORY | | + + + + + + | Immature | 8.0Comment: Low PLT + | 0.9 - 11.2 % | [facility] | | | Platelet | Low IPF are consistent | | [facility] | | | Fraction | with a production | | MEDICAL | | | | disorder. Low PLT + High | | CENTER - | | | | IPF are consistent with | | LABORATORY | | | | increased platelet | | | | | | destruction. | | | | + + + + + + | % | 72.6 | 45.0 - 82.0 % | [facility] | | | Neutrophils | | | [facility] | | | | | | MEDICAL | | | | | | CENTER - | | | | | | LABORATORY | | + + + + + + | % | 19.6 (L) | 20.0 - 45.0 % | [facility] | | | Lymphocytes | | | [facility] | | | | | | MEDICAL | | | | | | CENTER - | | | | | | LABORATORY | | + + + + + + | % Monocytes | 5.8 | 4.0 - 12.0 % | [facility] | | | | | | [facility] | | | | | | MEDICAL | | | | | | CENTER - | | | | | | LABORATORY | | + + + + + + | % | 0.5 | 0.0 - 5.0 % | [facility] | | | Eosinophils | | | [facility] | | | | | | MEDICAL | | | | | | CENTER - | | | | | | LABORATORY | | + + + + + + | % Basophils | 0.5 | 0.0 - 1.0 % | [facility] | | | | | | [facility] | | | | | | MEDICAL | | | | | | CENTER - | | | | | | LABORATORY | | + + + + + + | % Immature | 1.0 (H)Comment: | 0.0 - 0.4 % | [facility] | | | Granulocyte | Preliminary studies have | | [facility] | | | s | indicated the IG% | | MEDICAL | | | | and/or IG# show promise | | CENTER - | | | | as an early indicator | | LABORATORY | | | | for infection. | | | | + + + + + + | Absolute | 12.49 (H) | 1.80 - 8.50 | [facility] | | | Neutrophils | | K/uL | [facility] | | | | | | MEDICAL | | | | | | CENTER - | | | | | | LABORATORY | | + + + + + + | Absolute | 3.36 (H) | 0.60 - 3.20 | [facility] | | | Lymphocytes | | K/uL | [facility] | | | | | | MEDICAL | | | | | | CENTER - | | | | | | LABORATORY | | + + + + + + | Absolute | 0.99 | 0.00 - 1.00 | [facility] | | | Monocytes | | K/uL | [facility] | | | | | | MEDICAL | | | | | | CENTER - | | | | | | LABORATORY | | + + + + + + | Absolute | 0.08 | 0.00 - 0.40 | [facility] | | | Eosinophils | | K/uL | [facility] | | | | | | MEDICAL | | | | | | CENTER - | | | | | | LABORATORY | | + + + + + + | Absolute | 0.08 | 0.00 - 0.10 | [facility] | | | Basophils | | K/uL | [facility] | | | | | | MEDICAL | | | | | | CENTER - | | | | | | LABORATORY | | + + + + + + | Absolute | 0.18 (H) | 0.00 - 0.03 | [facility] | | | Immature | | K/uL | [facility] | | | Granulocyte | | [...] ST. | [address] | [place], [place] | [phone] | | [facility] | | [address] | | | - LABORATORY | | | | + + + + + POC Glucose (03/09/2020 9:27 PM PDT) + +---------+ + + + | Component | Value | Ref Range | Performed | Pathologist | | | | | At | Signature | + +---------+ + + + | Glucose, | 204 (H) | 70 - 109 mg/dL | [facility] | | | POC | | | [facility] | | | | | | MEDICAL [...] [address] | [place] | [phone] | | [facility] | | [address] | | | - LABORATORY | | [...] | Performed at: 01 - [address], | [facility] LAB | | [place] [phone] [employer] Set Up Operator: Sarabjit Love MD, Phone: | [facility] | | [phone] | | + + + + + + + + | Performing | Address | City/State/Zipcode | Phone Number | | Organization | | | | + + + + + | REFERENCE LAB | [address] | [place], [place] | [phone] | | [facility] | [address] | [address] | | + + + + + POC Glucose (03/09/2020 3:30 PM PDT) + +---------+ + + + | Component | Value | Ref Range | Performed | Pathologist | | | | | At | Signature | + +---------+ + + + | Glucose, | 149 (H) | 70 - 109 mg/dL | [...] [address] | [place] | [phone] | | [facility] | | [address] | | | - LABORATORY | | [...] Result | (PMNs) seen | | [facility] | | | | | | MEDICAL [...] [address] | [place] | [phone] | | [facility] | | [address] | | | - LABORATORY | | [...] + | Performed at: 01 - [place] [place] [address] [facility], | REFERENCE LAB | | [place], [place] [id number] [employer] Set Up Operator: Sarabjit Love MD, Phone: | [facility] | | [phone] | | + + + + + + + + | Performing | Address | City/State/Zipcode | Phone Number | | Organization | | | | + + + + + | REFERENCE LAB | [address] | [place], [place] | [phone] | | [facility] | [address] [facility] | [address] | | + + + + + [...] [address], | REFERENCE LAB | | [place], [place] [id number] [employer] Set Up Operator: Sarabjit Love MD, Phone: | [facility] [place] | | [phone] | | + + + + + + + + | Performing | Address | City/State/Zipcode | Phone Number | | Organization | | | | + + + + + | REFERENCE LAB | [address] | [place], [place] | [phone] | | [facility] | [place] | [address] | | + + + + + Protein, CSF (03/09/2020 3:19 PM PDT) + +-------+ + + + | Component | Value | Ref Range | Performed | Pathologist | | | | | At | Signature | + +-------+ + + + | CSF Tube | 1 | | [facility] | | | Number | | | [facility] | | | | | | MEDICAL | | | | | | CENTER - | | | | | | LABORATORY | | + +-------+ + + + | Protein, | 25 | 8 - 32 mg/dL | [facility] | | | CSF | | | [facility] | | | | | | MEDICAL [...] + | [facility] | [address] | [place], [place] | [phone] | | [facility] | | [address] | | | - LABORATORY | | [...] | | Number | | | [facility] | | | | | | MEDICAL | | | | | | CENTER - | | | | | | LABORATORY | | + +--------+ + + + | GLUCOSE CSF | 87 (H) | >40 - 70 mg/dL | [facility] | | | | | | [facility] | | | | | | MEDICAL [...] [address] | [place] | [phone] | | [facility] | | [address] | | | - LABORATORY | | [...] | | Supernatant | | | [facility] | | | Color | | | MEDICAL | | | | | | CENTER - | | | | | | LABORATORY | | + + + + + + | CSF | Clear | | [facility] | | | Appearance | | | [facility] | | | | | | MEDICAL | | | | | | CENTER - | | | | | | LABORATORY | | + + + + + + | CSF | <3 | <=5 cells/uL | [facility] | | | Nucleated | | | [facility] | | | Cells | | | MEDICAL | | | | | | CENTER - | | | | | | LABORATORY | | + + + + + + | CSF Red | <2000 | Reference Range | [facility] | | | Blood Cells | | Not | [facility] | | | | | Established | MEDICAL | | | | | cells/uL | CENTER - | | | | | | LABORATORY | | + + + + + + | RBC CSF | 2 | cells/uL | [facility] | | | Manual | | | [facility] | | | | | | MEDICAL | | | | | | CENTER - | | | | | | LABORATORY | | + + + + + + | CSF | 0.0 | 0 - 5 % | [facility] | | | Polynuclear | | | [facility] | | | % | | | MEDICAL | | | | | | CENTER - | | | | | | LABORATORY | | + + + + + + | CSF | 100.0 | 70 - 100 % | [facility] | | | Mononuclear | | | [facility] | | | % | | | [...] [address] | [place] | [phone] | | [facility] | | [address] | | | - LABORATORY | | | | + + + + + Culture, MRSA (03/09/2020 2:57 PM PDT) + + + + + + | Component | Value | Ref Range | Performed | Pathologist | | | | | At | Signature | + + + + + + | Culture | Negative for MRSA by | | [facility] | | | | chromogenic agar method. | | [facility] | | | [...] [address] | [place] | [phone] | | [facility] | | [address] | | | - LABORATORY | | | | + + + + + POC Glucose (03/09/2020 11:50 AM PDT) + +-------+ + + + | Component | Value | Ref Range | Performed | Pathologist | | | | | At | Signature | + +-------+ + + + | Glucose, | 107 | 70 - 109 mg/dL | [facility] | | | POC | | | [facility] | | | | | | MEDICAL [...] [address] | [place] | [phone] | | [facility] | | [address] | | | - LABORATORY | | | | + + + + + POC Glucose (03/09/2020 7:09 AM PDT) + +---------+ + + + | Component | Value | Ref Range | Performed | Pathologist | | | | | At | Signature | + +---------+ + + + | Glucose, | 118 (H) | 70 - 109 mg/dL | [facility] | | | POC | | | [facility] | | | | | | MEDICAL [...] ST. | [address] | [place] | [phone] | | [facility] | | [address] | | | - LABORATORY | | [...] | | Top Tube | | | [facility] | | [...] [address] | [place] | [phone] | | [facility] | | [address] | | | - LABORATORY | | | | + + + + + PTT (03/09/2020 6:31 AM PDT) + +-------+ + + + | Component | Value | Ref Range | Performed | Pathologist | | | | | At | Signature | + +-------+ + + + | aPTT | 34 | 22 - 36 seconds | [facility] | | | | | | [facility] | | | | | | MEDICAL [...] + | [facility] | [address] | [place] | [phone] | | [facility] | | [address] | | | - LABORATORY | | | | + + + + + Protime INR (03/09/2020 6:31 AM PDT) + + + + + + | Component | Value | Ref Range | Performed | Pathologist | | | | | At | Signature | + + + + + + | Prothrombin | 14.7 (H) | 11.3 - 13.9 | [facility] | | | Time | | seconds | [facility] | | | | | | MEDICAL | | | | | | CENTER - | | | | | | LABORATORY | | + + + + + + | INR | 1.1Comment: Usual Oral | 0.9 - 1.1 | [facility] | | | | Anticoagulation Range: | | [facility] | | | | 2.0 - 3.0High [...] [address] | [place] | [phone] | | [facility] | | [address] | | | - LABORATORY | | | | + + + + + CT Chest Abdomen Pelvis wo Contrast (03/09/2020 4:59 AM PDT) + + | Specimen | [...] | Cheng, Rad Results In - 03/09/2020 10:48 AM [...] + + Culture, Urine (03/09/2020 4:24 AM PDT) + + + + + + | Component | Value | Ref Range | Performed | Pathologist | | | | | At | Signature | + + + + + + | Culture | >100,000 CFU/ml Chandrika | | [facility] | | | | albicans | | [facility] | | | [...] + | [facility] | [address] | [place], [place] | [phone] | | [facility] | | [address] | | | - LABORATORY | | [...] | | | | | uIU/mL | [facility] | | | | | | MEDICAL [...] [address] | [place] | [phone] | | [facility] | | [address] | | | - LABORATORY | | [...] | | | | | | [facility] | | | | | | MEDICAL [...] [address] | [place] | [phone] | | [facility] | | [address] | | | - LABORATORY | | | | + + + + + Ethanol (03/09/2020 3:46 AM PDT) + +-------+ + + + | Component | Value | Ref Range | Performed | Pathologist | | | | | At | Signature | + +-------+ + + + | ALCOHOL, | <10 | <10 mg/dL | [facility] | | | SERUM/PLASM | | | [facility] | | | A | | | [...] + | [facility] | [address] | [place] | [phone] | | [facility] | | [address] | | | - LABORATORY | | | | + + + + + Phosphorus (03/09/2020 3:46 AM PDT) + +---------+ + + + | Component | Value | Ref Range | Performed | Pathologist | | | | | At | Signature | + +---------+ + + + | Phosphorus | 7.7 (H) | 2.4 - 5.1 mg/dL | [facility] | | | | | | [facility] | | | | | | MEDICAL [...] [address] | [place] | [phone] | | [facility] | | [address] | | | - LABORATORY | | | | + + + + + Magnesium (03/09/2020 3:46 AM PDT) + +-------+ + + + | Component | Value | Ref Range | Performed | Pathologist | | | | | At | Signature | + +-------+ + + + | Magnesium | 1.8 | 1.6 - 2.6 mg/dL | [facility] | | | | | | [facility] | | | | | | MEDICAL [...] + | [facility] | [address] | [place] | [phone] | | [facility] | | [address] | | | - LABORATORY | | | | + + + + + Lactic Acid (03/09/2020 3:46 AM PDT) + +-------+ + + + | Component | Value | Ref Range | Performed | Pathologist | | | | | At | Signature | + +-------+ + + + | Lactate | 0.9 | 0.5 - 2.2 | [facility] | [...] + | [facility] | [address] | [place] | [phone] | | [facility] | | [address] | | | - LABORATORY | | | | + + + + + Procalcitonin (03/09/2020 3:46 AM PDT) + + + + + + | Component | Value | Ref Range | Performed | Pathologist | | | | | At | Signature | + + + + + + | Procalciton | 4.23 ()Comment: | <=0.50 ng/mL | [facility] | | | in | Critical Result called | | [facility] | | | | to and read back by [facility] | | MEDICAL | | | | [place] on 03/09/2020 at | | CENTER - | | | | 2:10 AM PDT by Stefano Guerra | | LABORATORY | | | | Arns. | | | | + + + [...] | [address] | [place] | [phone] | | [facility] | | [address] | | | - LABORATORY | | [...] | | Total | | | [facility] | | | | | | MEDICAL | | | | | | CENTER - | | | | | | LABORATORY | | + + + + + + | Total | 5.9 | 5.7 - 8.2 g/dL | [facility] | | | Protein | | | [facility] | | | | | | MEDICAL | | | | | | CENTER - | | | | | | LABORATORY | | + + + + + + | Albumin | 2.5 (L) | 3.2 - 4.8 g/dL | [facility] | | | | | | [facility] | | | | | | MEDICAL | | | | | | CENTER - | | | | | | LABORATORY | | + + + + + + | AST | 20 | 0 - 34 U/L | [facility] | | | | | | [facility] | | | | | | MEDICAL | | | | | | CENTER - | | | | | | LABORATORY | | + + + + + + | ALT | 7 (L) | 10 - 49 U/L | [facility] | | | | | | [facility] | | | | | | MEDICAL | | | | | | CENTER - | | | | | | LABORATORY | | + + + + + + | Alkaline | 133 (H) | 46 - 116 U/L | [facility] | | | Phosphatase | | | [facility] | | | | | | MEDICAL | | | | | | CENTER - | | | | | | LABORATORY | | + + + + + + | Globulin | 3.4 | 2.1 - 3.8 g/dL | [facility] | | | | | | [facility] | | | | | | MEDICAL | | | | | | CENTER - | | | | | | LABORATORY | | + + + + + + | Albumin/Maria Del Carmen | 0.7 (L) | 0.8 - 1.9 | [facility] | | | bulin Ratio | | | [facility] | | | | | | MEDICAL | | | | | | CENTER - | | | | | | LABORATORY | | + + + + + + | Bilirubin, | <0.10 | 0.00 - 0.30 | [facility] | | | Direct | | mg/dl | [facility] | | | | | | MEDICAL [...] + | [facility] | [address] | [place] | [phone] | | [facility] | | [address] | | | - LABORATORY | | | | + + + + + Basic Metabolic Panel (03/09/2020 3:46 AM PDT) + + [...] + + + + | K | 5.0 | 3.4 - 5.1 | [facility] | | | | | mmol/L | [facility] | | | | | | MEDICAL | | | | | | CENTER - | | | | | | LABORATORY | | + + + + + + | Cl | 116 (H) | 98 - 107 mmol/L | [facility] | | | | | | [facility] | | | | | | MEDICAL | | | | | | CENTER - | | | | | | LABORATORY | | + + + + + + | CO2 | 20 | 20 - 31 mmol/L | [facility] | | | | | | [facility] | | | | | | MEDICAL | | | | | | CENTER - | | | | | | LABORATORY | | + + + + + + | Anion Gap | 8 | 3 - 16 mmol/L | [facility] | | | | | | [facility] | | | | | | MEDICAL | | | | | | CENTER - | | | | | | LABORATORY | | + + + + + + | Glucose | 166 (H) | 60 - 106 mg/dL | [facility] | | | | | | [facility] | | | | | | MEDICAL | | | | | | CENTER - | | | | | | LABORATORY | | + + + + + + | BUN | 57 (H) | 9 - 23 mg/dL | [facility] | | | | | | [facility] | | | | | | MEDICAL | | | | | | CENTER - | | | | | | LABORATORY | | + + + + + + | Creatinine | 4.67 (H) | 0.70 - 1.30 | [facility] | | | | | mg/dL | [facility] | | | | | | MEDICAL | | | | | | CENTER - | | | | | | LABORATORY | | + + + + + + | eGFR if not | 15 (L)Comment: | >=60 | [facility] | | | | GLOMERULAR FILTRATION | mL/min/1.73m2 | [facility] | | | [place] | RATE,ESTIMATED | | MEDICAL | | | | mL/min/1.55v3Zlqc than | | CENTER - | | [...] + | Calcium | 7.8 (L) | 8.7 - 10.4 | [facility] | | | | | mg/dL | [facility] | | | | | | MEDICAL [...] [address] | [place] | [phone] | | [facility] | | [address] | | | - LABORATORY | | | | + + + + + CBC with Differential (03/09/2020 3:45 AM PDT) + + + + + + | Component | Value | Ref Range | Performed | Pathologist | | | | | At | Signature | + + + + + + | WBC | 16.9 (H) | 4.0 - 11.0 K/uL | [facility] | | | | | | [facility] | | | | | | MEDICAL | | | | | | CENTER - | | | | | | LABORATORY | | + + + + + + | RBC | 3.93 (L) | 4.30 - 5.70 | [facility] | | | | | M/uL | [facility] | | | | | | MEDICAL | | | | | | CENTER - | | | | | | LABORATORY | | + + + + + + | Hemoglobin | 11.4 (L) | 13.5 - 18.0 | [facility] | | | | | g/dL | [facility] | | | | | | MEDICAL | | | | | | CENTER - | | | | | | LABORATORY | | + + + + + + | Hematocrit | 36.3 (L) | 40.0 - 51.0 % | [facility] | | | | | | [facility] | | | | | | MEDICAL | | | | | | CENTER - | | | | | | LABORATORY | | + + + + + + | MCV | 92.4 | 83.0 - 101.0 fL | [facility] | | | | | | [facility] | | | | | | MEDICAL | | | | | | CENTER - | | | | | | LABORATORY | | + + + + + + | MCH | 29.0 | 28.0 - 35.0 pg | [facility] | | | | | | [facility] | | | | | | MEDICAL | | | | | | CENTER - | | | | | | LABORATORY | | + + + + + + | MCHC | 31.4 (L) | 32.0 - 36.0 | [facility] | | | | | g/dL | [facility] | | | | | | MEDICAL | | | | | | CENTER - | | | | | | LABORATORY | | + + + + + + | RDW-CV | 15.2 (H) | <15.0 % | [facility] | | | | | | [facility] | | | | | | MEDICAL | | | | | | CENTER - | | | | | | LABORATORY | | + + + + + + | RDW-SD | 52.0 (H) | 35.1 - 46.3 fL | [facility] | | | | | | [facility] | | | | | | MEDICAL | | | | | | CENTER - | | | | | | LABORATORY | | + + + + + + | Platelet | 191 | 140 - 440 K/uL | [facility] | | | Count | | | [facility] | | | | | | MEDICAL | | | | | | CENTER - | | | | | | LABORATORY | | + + + + + + | MPV | Comment: Unable to | | [facility] | | | | report due to abnormal | | [facility] | | | | platelet flag | | MEDICAL | | | | | | CENTER - | | | | | | LABORATORY | | + + + + + + | Immature | Comment: Unable to | | [facility] | | | Platelet | report due to abnormal | | [facility] | | | Fraction | platelet flag | | MEDICAL | | | | | | CENTER - | | | | | | LABORATORY | | + + + + + + | % | 87.0 (H) | 45.0 - 82.0 % | [facility] | | | Neutrophils | | | [facility] | | | | | | MEDICAL | | | | | | CENTER - | | | | | | LABORATORY | | + + + + + + | % | 8.1 (L) | 20.0 - 45.0 % | [facility] | | | Lymphocytes | | | [facility] | | | | | | MEDICAL | | | | | | CENTER - | | | | | | LABORATORY | | + + + + + + | % Monocytes | 3.8 (L) | 4.0 - 12.0 % | [facility] | | | | | | [facility] | | | | | | MEDICAL | | | | | | CENTER - | | | | | | LABORATORY | | + + + + + + | % | 0.1 | 0.0 - 5.0 % | [facility] | | | Eosinophils | | | [facility] | | | | | | MEDICAL | | | | | | CENTER - | | | | | | LABORATORY | | + + + + + + | % Basophils | 0.4 | 0.0 - 1.0 % | [facility] | | | | | | [facility] | | | | | | MEDICAL [...] + + + + | Absolute | 14.73 (H) | 1.80 - 8.50 | [facility] | | | Neutrophils | | K/uL | [facility] | | | | | | MEDICAL | | | | | | CENTER - | | | | | | LABORATORY | | + + + + + + | Absolute | 1.38 | 0.60 - 3.20 | [facility] | | | Lymphocytes | | K/uL | [facility] | | | | | | MEDICAL | | | | | | CENTER - | | | | | | LABORATORY | | + + + + + + | Absolute | 0.65 | 0.00 - 1.00 | [facility] | | | Monocytes | | K/uL | [facility] | | | | | | MEDICAL | | | | | | CENTER - | | | | | | LABORATORY | | + + + + + + | Absolute | 0.01 | 0.00 - 0.40 | [facility] | | | Eosinophils | | K/uL | [facility] | | | | | | MEDICAL | | | | | | CENTER - | | | | | | LABORATORY | | + + + + + + | Absolute | 0.07 | 0.00 - 0.10 | [facility] | | | Basophils | | K/uL | [facility] | | | | | | MEDICAL | | | | | | CENTER - | | | | | | LABORATORY | | + + + + + + | Absolute | 0.10 (H) | 0.00 - 0.03 | [facility] | | | Immature | | K/uL | [facility] | | | Granulocyte | | [...] + | [facility] | [address] | [place] | [phone] | | [facility] | | [address] | | | - LABORATORY | | | | + + + + + Culture, Blood (03/09/2020 3:00 AM PDT) + + + + + + | Component | Value | Ref Range | Performed | Pathologist | | | | | At | Signature | + + + + + + | Culture | No growth after 5 days | | [facility] | | | | incubation. | | [facility] | | | | | | MEDICAL | | | | | | CENTER - | | | | | | LABORATORY | | + + + + + + + + | Specimen | + + | Blood - Entire left | | hand (body | | structure) | + + + + + + + | Performing | Address | City/State/Zipcode | Phone Number | | Organization | | | | + + + + + | [facility] | [address] | [place] | [phone] | | [facility] | | [address] | | | - LABORATORY | | | | + + + + + Culture, Blood (03/09/2020 2:45 AM PDT) + + + + + + | Component | Value | Ref Range | Performed | Pathologist | | | | | At | Signature | + + + + + + | Culture | No growth after 5 days | | [facility] | | | | incubation. | | [facility] | | | | | | MEDICAL | | | | | | CENTER - | | | | | | LABORATORY | | + + + + + + + + | Specimen | + + | Blood - Swab of line | | insertion site | | (specimen) | + + + + + + + | Performing | Address | City/State/Zipcode | Phone Number | | Organization | | | | + + + + + | [facility] | [address] | [place] | [phone] | | [facility] | | [address] | | | - LABORATORY | | | | + + + + + Vitamin B-12 (03/09/2020 1:10 AM PDT) + + + + + + | Component | Value | Ref Range | Performed | Pathologist | | | | | At | Signature | + + + + + + | VITAMIN | 1,277 (H)Comment: | 156 - 672 pg/mL | [facility] | | | B-12 | DEFICIENT: | | [facility] | | | | <145 | | [...] [address] | [place] | [phone] | | [facility] | | [address] | | | - LABORATORY | | | | + + + + + ECG 12 lead (03/09/2020 1:07 AM PDT) + + + + + [...] | | | | CRISTINE HUDDLESTON MD ([id number]) | | | | | | on [...] | + +---------+ + + Osmolality, Urine (03/09/2020 12:56 AM PDT) + +-------+ + + + | Component | Value | Ref Range | Performed | Pathologist | | | | | At | Signature | + +-------+ + + + | OSMO URINE | 350 | 300-1,000 | [facility] | | | | | mOsm/kg | [facility] | | | | | | [facility] [...] [facility] | [address] | [place] | [phone] | | [facility] | | [address] | | | - LABORATORY | | | | + + + + + Drugs of Abuse, Screen, Urine (03/09/2020 12:56 AM PDT) + + + + + + | Component | Value | Ref Range | Performed | Pathologist | | | | | At | Signature | + + + + + + | Amphetamine | Negative | Negative | [facility] | | | Screen, | | | [facility] | | | Urine | | | MEDICAL | | | | | | CENTER - | | | | | | LABORATORY | | + + + + + + | Barbiturate | Negative | Negative | [facility] | | | s Screen, | | | [facility] | | | Urine | | | MEDICAL | | | | | | CENTER - | | | | | | LABORATORY | | + + + + + + | Benzodiazep | Negative | Negative | [facility] | | | alan | | | [facility] | | | Screen, | | | MEDICAL | | | Urine | | | CENTER - | | | | | | LABORATORY | | + + + + + + | Cannabinoid | Positive (A) | Negative | [facility] | | | s Screen, | | | [facility] | | | Urine | | | MEDICAL | | | | | | CENTER - | | | | | | LABORATORY | | + + + + + + | Cocaine | Negative | Negative | [facility] | | | Screen, | | | [facility] | | | Urine | | | MEDICAL | | | | | | CENTER - | | | | | | LABORATORY | | + + + + + + | Methadone | Negative | Negative | [facility] | | | Screen, | | | [facility] | | | Urine | | | MEDICAL | | | | | | CENTER - | | | | | | LABORATORY | | + + + + + + | Opiates | Positive (A) | Negative | [facility] | | | Screen, | | | [facility] | | | Urine | | | [...] + | [facility] | [address] | [place] | [phone] | | [facility] | | [address] | | | - LABORATORY | | | | + + + + + Urinalysis with Microscopic with Culture if Indicated (03/09/2020 12:56 AM PDT) + + + + + + | Component | Value | Ref Range | Performed | Pathologist | | | | | At | Signature | + + + + + + | Color, | Shante (A) | Light Yellow, | [facility] | | | Urine | | Yellow, Straw | [facility] | | | | | | MEDICAL | | | | | | CENTER - | | | | | | LABORATORY | | + + + + + + | Clarity | Turbid (A) | Clear | [facility] | | | | | | [facility] | | | | | | MEDICAL | | | | | | CENTER - | | | | | | LABORATORY | | + + + + + + | pH, Urine | 5.0 | 5.0 - 8.0 | [facility] | | | | | | [facility] | | | | | | MEDICAL | | | | | | CENTER - | | | | | | LABORATORY | | + + + + + + | Specific | 1.017 | 1.001 - 1.030 | [facility] | | | [place], | | | [facility] | | | Urine | | | MEDICAL | | | | | | CENTER - | | | | | | LABORATORY | | + + + + + + | Protein, | 100 mg/dL (A) | Negative | [facility] | | | Urine | | | [facility] | | | | | | MEDICAL | | | | | | CENTER - | | | | | | LABORATORY | | + + + + + + | Blood, | Small (A) | Negative | [facility] | | | Urine | | | [facility] | | | | | | MEDICAL | | | | | | CENTER - | | | | | | LABORATORY | | + + + + + + | Glucose, | 150 mg/dL (A) | Negative | [facility] | | | Urine | | | [facility] | | | | | | MEDICAL | | | | | | CENTER - | | | | | | LABORATORY | | + + + + + + | Ketones, | Negative | Negative | [facility] | | | Urine | | | [facility] | | | | | | MEDICAL | | | | | | CENTER - | | | | | | LABORATORY | | + + + + + + | Bilirubin, | Negative | Negative | [facility] | | | Urine | | | [facility] | | | | | | MEDICAL | | | | | | CENTER - | | | | | | LABORATORY | | + + + + + + | Nitrite, | Negative | Negative | [facility] | | | Urine | | | [facility] | | | | | | MEDICAL | | | | | | CENTER - | | | | | | LABORATORY | | + + + + + + | Leukocyte | Small (A) | Negative | [facility] | | | Esterase, | | | [facility] | | | Urine | | | MEDICAL | | | | | | CENTER - | | | | | | LABORATORY | | + + + + + + | Urobilinoge | Negative | 0.2 mg/dL, 1.0 | [facility] | | | n, Urine | | mg/dL, Negative | [facility] | | | | | | MEDICAL | | | | | | CENTER - | | | | | | LABORATORY | | + + + + + + | White Blood | >100 (A) | 0 - 2 /HPF | [facility] | | | Cells, | | | [facility] | | | Urine | | | MEDICAL | | | | | | CENTER - | | | | | | LABORATORY | | + + + + + + | White Blood | Many (A) | None Seen /HPF | [facility] | | | Cell | | | [facility] | | | Clumps, | | | MEDICAL | | | Urine | | | CENTER - | | | | | | LABORATORY | | + + + + + + | Red Blood | 25-50 (A) | 0 - 2 /HPF | [facility] | | | Cells, | | | [facility] | | | Urine | | | MEDICAL | | | | | | CENTER - | | | | | | LABORATORY | | + + + + + + | Squamous | 0-2 | 0 - 2 /LPF | [facility] | | | Epithelial | | | [facility] | | | Cells, | | | MEDICAL | | | Urine | | | CENTER - | | | | | | LABORATORY | | + + + + + + | Bacteria, | Negative | Negative /HPF | [facility] | | | Urine | | | [facility] | | | | | | MEDICAL | | | | | | CENTER - | | | | | | LABORATORY | | + + + + + + | Budding | Moderate (A) | Negative /HPF | [facility] | | | Yeast, | | | [facility] | | | Urine | | | MEDICAL | | | | | | CENTER - | | | | | | LABORATORY | | + + + + + + | Urine | Urine Culture Not | | [facility] | | | Comment | Indicated | | [facility] | | | | | | MEDICAL [...] [address] | [place] | [phone] | | [facility] | | [address] | | | - LABORATORY | | [...] | | | Source | | | [facility] | | | | | | MEDICAL | | | | | | CENTER - | | | | | | LABORATORY | | + + + + + + | pH, POC | 7.334 | 7.3 - 7.45 | [facility] | | | | | | [facility] | | | | | | MEDICAL | | | | | | CENTER - | | | | | | LABORATORY | | + + + + + + | HCO3, POC | 17.8 (L) | 21.0 - 28.0 | [facility] | | | | | mmol/L | [facility] | | | | | | MEDICAL | | | | | | CENTER - | | | | | | LABORATORY | | + + + + + + | TCO2, POC | 18.8 (L) | 22.0 - 29.0 | [facility] | | | | | mmol/L | [facility] | | | | | | MEDICAL | | | | | | CENTER - | | | | | | LABORATORY | | + + + + + + | Base | -7.2 (L) | -2.0 - 3.0 | [facility] | | | Excess, POC | | mmol/L | [facility] | | | | | | MEDICAL | | | | | | CENTER - | | | | | | LABORATORY | | + + + + + + | Base | -8.1 (L) | -2.0 - 3.0 | [facility] | | | Excess, | | mmol/L | [facility] | | | Extracellul | | | MEDICAL | | | ar fluid, | | | CENTER - | | | POC | | | LABORATORY | | + + + + + + | O2 Sat, POC | 77 (L) | 90 - 100 % | [facility] | | | | | | [facility] | | | | | | MEDICAL | | | | | | CENTER - | | | | | | LABORATORY | | + + + + + + | PCO2, POC | 33.4 (L) | 35 - 45 mmHg | [facility] | | | | | | [facility] | | | | | | MEDICAL | | | | | | CENTER - | | | | | | LABORATORY | | + + + + + + | pO2, POC | 44 (L) | 60 - 750 mmHg | [facility] | | | | | | [facility] | | | | | | MEDICAL [...] [address] | [place] | [phone] | | [facility] | | [address] | | | - LABORATORY | | | | + + + + + POC Glucose (03/09/2020 12:37 AM PDT) + +---------+ + + + | Component | Value | Ref Range | Performed | Pathologist | | | | | At | Signature | + +---------+ + + + | Glucose, | 182 (H) | 70 - 109 mg/dL | [facility] | | | POC | | | [facility] | | | | [...] ST. | [address] | [place], [place] | [phone] | | [facility] | | [address] | | | - LABORATORY | | | | + + + + + documented in this encounter Visit Diagnoses + + | Diagnosis | + + | Acute metabolic encephalopathy | + + | CKD (chronic kidney disease) stage 4, GFR 15-29 ml/min (HCC) Chronic kidney disease, | | Stage IV (severe) | + + | Hypoglycemia Hypoglycemia, unspecified | + + | Severe protein-calorie malnutrition (HCC) Other severe protein-calorie malnutrition | + + | Type 1 diabetes mellitus with nephropathy (HCC) | + + | Essential hypertension Unspecified essential hypertension | + + | Diabetic gastroparesis (HCC) 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, not stated as uncontrolled | + + | Epigastric pain Abdominal pain, epigastric | + + | Goals of care, counseling/discussion Other specified counseling | + + | Palliative care by specialist | + + documented in this encounter Administered Medications + +--------+---------+------+------+------+ | Medication Order | MAR | Action | Dose | Rate | Site | | | Action | Date | | | | + +--------+---------+------+------+------+ + +---+ | acetaminophen (TYLENOL) 650 mg | | | suppository Starting Tue03/11/20 | | | at 1015, For 1 dose, | | | Lund-Siobhan Melara: karyn | | | override, | | + +---+ | | | + +---+ + +-------+ +--------+---+---+ | acetaminophen (TYLENOL) | Given | 03/11/20 | 650 mg | | | | suppository 650 mg 650 mg, | | 20 10:45 | | | | | Rectal, EVERY 4 HOURS PRN, Pain, | | AM PDT | | | | | Starting 03/11/20 at 1008 | | | | | | + +-------+ +--------+---+---+ + +---+ | | | + +---+ | acetaminophen (TYLENOL) tablet | | | 325 mg 325 mg, Oral, 2 TIMES | | | DAILY PRN, Pain, Fever, Starting | | | 03/14/20 at 1215 | | + +---+ | | | + +---+ + +-------+ +--------+---+---+ | acetaminophen (TYLENOL) tablet | Given | 03/12/20 | 650 mg | | | | 650 mg 650 mg, Oral, EVERY 4 | | 20 9:58 | | | | | HOURS PRN, Pain, or fever >= 38.6 | | PM PDT | | | | | C (101.5 F), Starting Sun | | | | | | | 03/09/20 at 0038 | | | | | | + +-------+ +--------+---+---+ +-------+ +--------+---+---+ | Given | 03/12/20 | 650 mg | | | | | 20 2:23 | | | | | | PM PDT | | | | +-------+ +--------+---+---+ | Given | 03/12/20 | 650 mg | | | | | 20 8:10 | | | | | | AM PDT | | | | +-------+ +--------+---+---+ + +---+ | | | + +---+ | acetaminophen (TYLENOL) tablet | | | 650 mg 650 mg, Oral, 2 TIMES | | | DAILY 0800 & 1800, First dose on | | | 03/14/20 at 1800 | | + +---+ | | | + +---+ + +-------+ + +---+---+ | calcium acetate (PHOSLO) | Given | 03/14/20 | 1,334 mg | | | | capsule 1,334 mg 1,334 mg, Oral, | | 20 12:25 | | | | | 3 TIMES DAILY WITH MEALS, First | | PM PDT | | | | | dose on Tue03/12/20 at 0800 | | | | | | + +-------+ + +---+---+ +-------+ + +---+---+ | Given | 03/14/20 | 1,334 mg | | | | | 20 7:58 | | | | | | AM PDT | | | | +-------+ + +---+---+ | Given | 03/13/20 | 1,334 mg | | | | | 20 5:45 | | | | | | PM PDT | | | | +-------+ + +---+---+ +---+---+ | | | +---+---+ + +---------+ +-----+-------+---+ | cefTRIAXone (ROCEPHIN) 2 g in | New Bag | 03/09/20 | 2 g | 100 | | | sodium chloride 0.9% 50 mL IVPB | | 20 3:12 | | mL/hr | | | 2 g, Intravenous, Administer over | | AM PDT | | | | | 30 Minutes, ONCE, 03/09/20 at | | | | | | | 0600, For 1 dose, Administered | | | | | | | during downtime Activate system | | | | | | | and mix before use., Indications: | | | | | | | UTI - LOWER | | | | | | + +---------+ +-----+-------+---+ +---+---+ | | | +---+---+ + +-------+ +-----+---+---+ | cholestyramine light (QUESTRAN) | Given | 03/13/20 | 4 g | | | | packet 4 g 4 g, Oral, 2 TIMES | | 20 9:56 | | | | | DAILY, First dose on Tue03/12/20 | | PM PDT | | | | | at 0900, Mix with 2-6 oz. water, | | | | | | | noncarbonated liquid, or | | | | | | | applesauce. Give all other oral | | | | | | | drugs at least 1 hour before or 4 | | | | | | | hours after cholestyramine., | | | | | | + +-------+ +-----+---+---+ +-------+ +-----+---+---+ | Given | 03/13/20 | 4 g | | | | | 20 8:54 | | | | | | AM PDT | | | | +-------+ +-----+---+---+ | Given | 03/12/20 | 4 g | | | | | 20 8:10 | | | | | | AM PDT | | | | +-------+ +-----+---+---+ + +---+ | | | + +---+ | dextrose 10% (D10W) infusion | | | at 50 mL/hr, Intravenous, | | | CONTINUOUS PRN, hypoglycemia, | | | Starting 03/09/20 at 0538, | | | Start infusion if unable [...] +---+ | | | + +---+ + + + +---+ +---+ | dextrose 5% (D5W) 1,000 mL with | Rate/Dos | 03/10/20 | | 50 mL/hr | | | sodium bicarbonate 150 mEq | e Change | 20 8:00 | | | | | infusion at 50 mL/hr, | | AM PDT | | | | | Intravenous, CONTINUOUS, Starting | | | | | | | 03/09/20 at 0945, For 1 day | | | | | | | 17 hours, Run with D5W. Once this | | | | | | | D5W +150 meq sodium bicarb bag | | | | | | | runs out, change to order for D5W | | | | | | | +75 meq sodium bicarb 100 | | | | | | | ml/hr., | | | | | | + + + +---+ +---+ +---------+ +---+-------+---+ | New Bag | 03/10/20 | | 100 | | | | 20 5:33 | | mL/hr | | | | AM PDT | | | | +---------+ +---+-------+---+ | New Bag | 03/09/20 | | 100 | | | | 20 9:55 | | mL/hr | | | | AM PDT | | | | +---------+ +---+-------+---+ +---+---+ | | | +---+---+ + +---------+ +---+-------+---+ | dextrose 5% (D5W) 1,000 mL with | New Bag | 03/11/20 | | 100 | | | sodium bicarbonate 75 mEq | | 20 3:50 | | mL/hr | | | infusion at 100 mL/hr, | | AM PDT | | | | | Intravenous, CONTINUOUS, Starting | | | | | | | 03/11/20 at 0200, Start this | | | | | | | infusion once D5W + 150 meq | | | | | | | sodium bicarb bag has completed. | | | | | | | Stop the D5W 50 ml/hr when this | | | | | | | bag starts., | | | | | | + +---------+ +---+-------+---+ +---+---+ | | | +---+---+ + +---------+ +---+ +---+ | dextrose 5% (D5W) infusion at | New Bag | 03/10/20 | | 50 mL/hr | | | 50 mL/hr, Intravenous, | | 20 8:00 | | | | | CONTINUOUS, Starting 03/10/20 | | AM PDT | | | | | at 0830, For 18 hours, Run with | | | | | | | D5W + 150 meq sodium bicarb, | | | | | | + +---------+ +---+ +---+ +---+---+ | | | +---+---+ + +---------+ +---+-------+---+ | dextrose 5% lactated ringers | New Bag | 03/11/20 | | 100 | | | (D5LR) infusion at 100 mL/hr, | | 20 8:25 | | mL/hr | | | Intravenous, CONTINUOUS, Starting | | PM PDT | | | | | 03/11/20 at 0845 | | | | | | + +---------+ +---+-------+---+ +---------+ +---+-------+---+ | New Bag | 03/11/20 | | 100 | | | | 20 9:29 | | mL/hr | | | | AM PDT | | | | +---------+ +---+-------+---+ +---+---+ | | | +---+---+ + +-------+ +------+---+---+ | dextrose 50% injection 12.5-25 | Given | 03/14/20 | 25 g | | | | g 12.5-25 g, Intravenous, PRN, | | 20 7:08 | | | | | Low Blood Sugar, Starting Sun | | AM PDT | | | | | 03/09/20 at 0538, For blood | | | | | | | glucose 50-69 mg/dl - give 12.5 g | | | | | | | For blood glucose less than 50 | | | | | | | mg/dl - give 25 g, | | | | | | + +-------+ +------+---+---+ +---+---+ | | | +---+---+ + +---------+ +---------+---+ + | fentaNYL (DURAGESIC) 12 mcg/hr | Patch | 03/13/20 | 1 patch | | Deltoid- | | 1 patch 1 patch, Transdermal, | Applied | 20 11:34 | | | Left | | EVERY 72 HOURS, First dose on Mon | | AM PDT | | | | | 03/10/20 at 1100 | | | | | | + +---------+ +---------+---+ + + + +---------+---+ + | Patch Applied | 03/10/20 | 1 patch | | Back-Rig | | | 20 10:54 | | | ht Upper | | | AM PDT | | | | + + +---------+---+ + +---+---+ | | | +---+---+ + +-------+ +-------+---+---+ | furosemide (LASIX) injection 80 | Given | 03/09/20 | 80 mg | | | | mg 80 mg, Intravenous, ONCE, | | 20 9:00 | | | | | 03/09/20 at 2015, For 1 dose | | PM PDT | | | | + +-------+ +-------+---+---+ +---+---+ | | | +---+---+ + +-------+ +--------+---+ + | heparin 5,000 units/mL | Given | 03/14/20 | 5,000 | | Abdomen- | | injection 5,000 Units 5,000 | | 20 7:58 | Units | | LLQ | | Units, Subcutaneous, EVERY 12 | | AM PDT | | | | | HOURS (2 times per day), First | | | | | | | dose on 03/09/20 at 0100 | | | | | | + +-------+ +--------+---+ + +-------+ +--------+---+ + | Given | 03/13/20 | 5,000 | | Abdomen- | | | 20 9:56 | Units | | RLQ | | | PM PDT | | | | +-------+ +--------+---+ + | Given | 03/13/20 | 5,000 | | Abdomen- | | | 20 8:59 | Units | | LLQ | | | AM PDT | | | | +-------+ +--------+---+ + + +---+ | | | + +---+ | heparin 5,000 units/mL | | | injection Starting 03/09/20 | | | at 0127, For 1 dose, Nadira, | | | Antonino: karyn lundy, | | + +---+ | | | + +---+ + +-------+ +------+---+---+ | hydrALAZINE (APRESOLINE) | Given | 03/10/20 | 5 mg | | | | injection 5-10 mg 5-10 mg, | | 20 2:32 | | | | | Intravenous, EVERY 30 MIN PRN, | | AM PDT | | | | | SBP>160 or DBP>95; use only after | | | | | | | maximum doses of metoprolol | | | | | | | given, Starting 03/09/20 at | | | | | | | 1811 | | | | | | + +-------+ +------+---+---+ +---+---+ | | | +---+---+ + +-------+ + +---+---+ | HYDROcodone-acetaminophen | Given | 03/14/20 | 1 tablet | | | | (NORCO) 10-325 mg per tablet 1 | | 20 7:59 | | | | | tablet 1 tablet, Oral, EVERY 6 | | AM PDT | | | | | HOURS PRN, Pain, Starting Tatiana | | | | | | | 03/13/20 at 0043 | | | | | | + +-------+ + +---+---+ +-------+ + +---+---+ | Given | 03/14/20 | 1 tablet | | | | | 20 12:19 | | | | | | AM PDT | | | | +-------+ + +---+---+ | Given | 03/13/20 | 1 tablet | | | | | 20 3:50 | | | | | | PM PDT | | | | +-------+ + +---+---+ +---+---+ | | | +---+---+ + +-------+ + +---+---+ | HYDROcodone-acetaminophen | Given | 03/14/20 | 1 tablet | | | | (NORCO) 10-325 mg per tablet 1 | | 20 2:34 | | | | | tablet 1 tablet, Oral, 2 TIMES | | PM PDT | | | | | DAILY PRN, Pain, Starting Fri | | | | | | | 03/14/20 at 1230 | | | | | | + +-------+ + +---+---+ +---+---+ | | | +---+---+ + +-------+ +---------+---+ + | insulin glargine (LANTUS | Given | 03/11/20 | 3 Units | | Arm-Left | | SOLOSTAR) injection (pen) 3 Units | | 20 8:40 | | | Upper | | 3 Units, Subcutaneous, NIGHTLY, | | PM PDT | | | | | First dose (after last | | | | | | | modification) on 03/09/20 at | | | | | | | 2100, For subcutaneous use only. | | | | | | | Basal (long acting) insulin., If | | | | | | | NPO: Decrease dose, by: 50% | | | | | | + +-------+ +---------+---+ + +-------+ +---------+---+ + | Given | 03/10/20 | 3 Units | | Abdomen- | | | 20 9:53 | | | RLQ | | | PM PDT | | | | +-------+ +---------+---+ + | Given | 03/09/20 | 3 Units | | Abdomen- | | | 20 9:41 | | | LUQ | | | PM PDT | | | | +-------+ +---------+---+ + +---+---+ | | | +---+---+ + +-------+ +---------+---+ + | insulin glargine (LANTUS | Given | 03/13/20 | 5 Units | | Arm-Left | | SOLOSTAR) injection (pen) 5 Units | | 20 10:06 | | | Upper | | 5 Units, Subcutaneous, NIGHTLY, | | PM PDT | | | | | First dose (after last | | | | | | | modification) on Tue03/12/20 at | | | | | | | 2100, For subcutaneous use only. | | | | | | | Basal (long acting) insulin., If | | | | | | | NPO: Decrease dose, by: 50% | | | | | | + +-------+ +---------+---+ + +-------+ +---------+---+ + | Given | 03/12/20 | 5 Units | | Arm-Left | | | 20 10:37 | | | Upper | | | PM PDT | | | | +-------+ +---------+---+ + +---+---+ | | | +---+---+ + +-------+ +---------+---+ + | insulin lispro (humaLOG | Given | 03/14/20 | 1 Units | | Abdomen- | | KWIKPEN) injection (pen) 0-6 | | 20 12:24 | | | LLQ | | Units 0-6 Units, Subcutaneous, 4 | | PM PDT | | | | | TIMES DAILY WITH MEALS & | | | | | | | NIGHTLY, First dose on Sun | | | | | | | 03/09/20 at 0800, CORRECTION | | | | [...] | | | | | NPO, Daytime [id number] Use NIGHT | | | | | | | DOSE for doses scheduled: | | | | | | | HS, Nighttime [id number] If the | | | | | | | BG is not checked before the | | | | | | | patient starts eating, do not | | | | | | | give correction insulin., | | | | | | + +-------+ +---------+---+ + +-------+ +---------+---+ + | Given | 03/13/20 | 3 Units | | Abdomen- | | | 20 6:00 | | | LUQ | | | PM PDT | | | | +-------+ +---------+---+ + | Given | 03/13/20 | 1 Units | | Arm-Left | | | 20 8:46 | | | Upper | | | AM PDT | | | | +-------+ +---------+---+ + +---+---+ | | | +---+---+ + +---------+ +---+-------+---+ | lactated ringers (LR) infusion | New Bag | 03/09/20 | | 100 | | | at 100 mL/hr, Intravenous, | | 20 6:31 | | mL/hr | | | CONTINUOUS, Starting 03/09/20 | | AM PDT | | | | | at 0645 | | | | | | + +---------+ +---+-------+---+ +---+---+ | | | +---+---+ + +-------+ +------+---+---+ | loperamide (IMODIUM) capsule 2 | Given | 03/14/20 | 2 mg | | | | mg 2 mg, Oral, EVERY 3 HOURS | | 20 2:34 | | | | | PRN, Diarrhea, Starting Wed | | PM PDT | | | | | 03/12/20 at 0710 | | | | | | + +-------+ +------+---+---+ +-------+ +------+---+---+ | Given | 03/14/20 | 2 mg | | | | | 20 11:35 | | | | | | AM PDT | | | | +-------+ +------+---+---+ | Given | 03/13/20 | 2 mg | | | | | 20 6:07 | | | | | | PM PDT | | | | +-------+ +------+---+---+ +---+---+ | | | +---+---+ + +-------+ +--------+---+---+ | LORazepam (ATIVAN) injection | Given | 03/09/20 | 0.5 mg | | | | 0.5 mg 0.5 mg, Intravenous, | | 20 6:23 | | | | | EVERY 4 HOURS PRN, Anxiety, | | PM PDT | | | | | Starting 03/09/20 at 1811 | | | | | | + +-------+ +--------+---+---+ +---+---+ | | | +---+---+ + +-------+ +--------+---+---+ | LORazepam (ATIVAN) injection | Given | 03/09/20 | 0.5 mg | | | | 0.5 mg 0.5 mg, Intravenous, | | 20 11:51 | | | | | EVERY 4 HOURS PRN, Anxiety, | | PM PDT | | | | | Other, aggitation, Starting Sun | | | | | | | 03/09/20 at 2045 | | | | | | + +-------+ +--------+---+---+ +---+---+ | | | +---+---+ + +-------+ +--------+---+---+ | LORazepam (ATIVAN) injection | Given | 03/09/20 | 0.5 mg | | | | 0.5-1 mg 0.5-1 mg, Intravenous, | | 20 3:05 | | | | | ONCE, 03/09/20 at 1500, For 1 | | PM PDT | | | | | dose, Will give with LP, starting | | | | | | | with 0.5 mg, | | | | | | + +-------+ +--------+---+---+ +---+---+ | | | +---+---+ + +---------+ +--------+-------+---+ | meropenem (MERREM) 500 mg in | New Bag | 03/12/20 | 500 mg | 100 | | | sodium chloride 0.9% 50 mL IVPB | | 20 8:10 | | mL/hr | | | 500 mg, Intravenous, Administer | | AM PDT | | | | | over 30 Minutes, EVERY 12 HOURS, | | | | | | | First dose on 03/10/20 at | | | | | | | 0900, Activate system and mix | | | | | | | before use., Indications: SEPSIS | | | | | | | OF UNKNOWN ETIOLOGY | | | | | | + +---------+ +--------+-------+---+ +---------+ +--------+-------+---+ | New Bag | 03/11/20 | 500 mg | 100 | | | | 20 8:25 | | mL/hr | | | | PM PDT | | | | +---------+ +--------+-------+---+ | New Bag | 03/11/20 | 500 mg | 100 | | | | 20 9:40 | | mL/hr | | | | AM PDT | | | | +---------+ +--------+-------+---+ +---+---+ | | | +---+---+ + +-------+ +------+---+---+ | metoprolol tartrate (LOPRESSOR) | Given | 03/11/20 | 5 mg | | | | injection 5 mg 5 mg, | | 20 3:54 | | | | | Intravenous, EVERY 2 HOURS PRN, | | AM PDT | | | | | SBP>160 or DBP> 95, Starting Sun | | | | | | | 03/09/20 at 1109 | | | | | | + +-------+ +------+---+---+ +-------+ +------+---+---+ | Given | 03/10/20 | 5 mg | | | | | 20 3:37 | | | | | | AM PDT | | | | +-------+ +------+---+---+ | Given | 03/09/20 | 5 mg | | | | | 20 9:07 | | | | | | PM PDT | | | | +-------+ +------+---+---+ +---+---+ | | | +---+---+ + +-------+ +-------+---+---+ | metoprolol tartrate (LOPRESSOR) | Given | 03/14/20 | 25 mg | | | | tablet 25 mg 25 mg, Oral, 2 | | 20 7:59 | | | | | TIMES DAILY, First dose on Tue | | AM PDT | | | | | 03/12/20 at 0900 | | | | | | + +-------+ +-------+---+---+ +-------+ +-------+---+---+ | Given | 03/13/20 | 25 mg | | | | | 20 9:56 | | | | | | PM PDT | | | | +-------+ +-------+---+---+ | Given | 03/13/20 | 25 mg | | | | | 20 8:57 | | | | | | AM PDT | | | | +-------+ +-------+---+---+ +---+---+ | | | +---+---+ + +-------+ +---+---+---+ | miconazole (MICATIN) 2% cream | Given | 03/13/20 | | | | | Topical, 2 TIMES DAILY, First | | 20 9:57 | | | | | dose on Tue03/10/20 at 1430, | | PM PDT | | | | | Apply to: Sacrum/Coccyx, Other | | | | | | | (Comment), Other location: | | | | | | | scrotum | | | | | | + +-------+ +---+---+---+ +-------+ +---+---+---+ | Given | 03/13/20 | | | | | | 20 11:36 | | | | | | AM PDT | | | | +-------+ +---+---+---+ | Given | 03/12/20 | | | | | | 20 10:09 | | | | | | PM PDT | | | | +-------+ +---+---+---+ +---+---+ | | | +---+---+ + +-------+ +------+---+---+ | naloxone (NARCAN) 0.4 mg/mL | Given | 03/09/20 | 1 mg | | | | injection 1 mg 1 mg, | | 20 6:47 | | | | | Intravenous, ONCE, 03/09/20 at | | AM PDT | | | | | 0700, For 1 dose | | | | | | + +-------+ +------+---+---+ +---+---+ | | | +---+---+ + +-------+ +-------+---+---+ | sertraline (ZOLOFT) tablet 50 | Given | 03/14/20 | 50 mg | | | | mg 50 mg, Oral, DAILY, First | | 20 7:59 | | | | | dose on Tatiana 03/13/20 at 1445 | | AM PDT | | | | + +-------+ +-------+---+---+ +-------+ +-------+---+---+ | Given | 03/13/20 | 50 mg | | | | | 20 3:43 | | | | | | PM PDT | | | | +-------+ +-------+---+---+ +---+---+ | | | +---+---+ + + + +---+-------+---+ | sodium chloride 0.9% (NS) | Rate/Dos | 03/09/20 | | 125 | | | infusion at 125 mL/hr, | e Change | 20 4:29 | | mL/hr | | | Intravenous, CONTINUOUS, Starting | | AM PDT | | | | | 03/09/20 at 0100 | | | | | | + + + +---+-------+---+ +---------+ +---+-------+---+ | New Bag | 03/09/20 | | 100 | | | | 20 1:15 | | mL/hr | | | | AM PDT | | | | +---------+ +---+-------+---+ +---+---+ | | | +---+---+ documented in this encounter Additional Health Concerns + + + + | Infection | Noted Time | Resolved Time | + + + + | Rule out C. Difficile | 03/11/2020 3:58 PM | 03/11/2020 6:29 PM | | | PDT | PDT | + + + + documented as of this encounter
--- OUTSIDE RECORDS SUMMARY | ~2020-03-21 | XMS | Encounter Summary ---
Demographics + + + | Address | [address] | | | [place] [address] | + + + | Home Phone [...] [place] | | | | | [address] | | + + + + + Care Team Providers + +------+ + | Care Supervisor Dehydrogenation Name | Role | Phone | + [...] Dx); Weight | | | | [address] [place], [place] | [place], [place] | loss; Malnutrition, | | | | [address] | [address] | unspecified type | | | | [phone] | | ([facility]); Type 1 | | | | | [...] 2020 | Visit | | [address] [facility] | | | | | | [facility] | | | | | | [address] | | | | | | | [...] | + + | Malnutrition, unspecified type ([facility]) | + + | Type 1 diabetes mellitus with nephropathy ([facility]) | + + | Anemia of chronic renal failure, stage 3 (moderate) ([facility]) | + + documented in this encounter"
--- OUTSIDE RECORDS SUMMARY | ~2020-03-21 | XMS | Clinical Summary ---
Demographics + + + | Address | [address] | | | [place] [address] | + + + | Home Phone | | + + + | Preferred Language | Unknown | + + + | Marital Status | Single | + + + | Mormonism Affiliation | NON | + + + [...] Samantha Ramos | ECON | [address] | | | | | [place], [place] | | | | | [address] | | + + + + + Care Team Providers + +------+ + | Care Screen Writer Name | Role | Phone | + +------+ + | Erich Yates PA-C | PCP | | + +------+ + Source Comments VER[facility] is fully [facility] both [facility] and [facility] Allergies + + + + + + [...] + + + + | 01/24/ | Telephone-S | Surgery | Beth Mondragon, | Follow-up visit | | 2019 | cheduled | | ANP | | +--------+ + + + + | 01/24/ | Telephone | Surgery | Beth Mondragon, | Chart Review | | 2019 | | | ANP | | +--------+ + + + + | 01/22/ | Abstract | Surgery | Neri Steven MD | | | 2019 | | | | | +--------+ + + + + | 01/05/ | Outside | | Other, Faculty | | | 2020 | Records | | | | +--------+ + + [...] | 09/20/2018, 07/02/2015, | | | vaccination (Season | 0 | 07/21/2010, Additional history | | | Ended) | | exists | | + + + + + | Pneumococcal | Completed | 07/02/2015, 05/25/2014, | | | vaccination | | 04/10/2014 | | + + + + + Procedures + +--------+ + + + | [...] + + from Last 3 Months Results OUTSIDE RADIOLOGY - CT (01/06/2020 12:00 AM PDT) + + + | Narrative | Performed At | + + + | | | + + + from Last 3 Months Insurance + +--------+ +--------+-------+---------+--------+ | Payer | Benefi | Subscriber | Effect | Phone | Address | Type | | | t Plan | ID | edna | | | | | | / | | Dates | | | | | | Group | | | | | | + +--------+ +--------+-------+---------+--------+ | CAN FILLER MEDICAID | CAN FILLER | xxxxxxxx | 04/03/20 | | | [...] [address] | | Alin | al/Fam | | 1991 | [phone] | [place] | | | lucian | | | 1 (Home) | [id number] | + +--------+ +--------+ + + Advance [...]
--- OUTSIDE RECORDS SUMMARY | ~2020-03-21 | XMS | Encounter Summary ---
Demographics + + + | Address | [address] | | | [place] [address] | + + + | Home Phone [...] [place] | | | | | [address] | | + + + + + Care Team Providers + +------+ + | Care Weaving Teacher Name | Role | Phone | [...] | [address] | (moderate) ([facility]); | | | | [address] [place], [place] | [place] [address] | Proteinuria; Type 1 | | | | [address] | | diabetes mellitus | | | | [phone] | | with diabetic | | | | | | nephropathy ([facility]); | | | | | | Chronic kidney | | | | | | disease, stage III | | | | | | (moderate) ([facility]) | +--------+ + + [...] [place] | | | | | | [address] | | | | | | | [...] | | | | | nephropathy ([facility]) | | | | | | Chronic kidney | | | | | | disease, stage III | | | | | | (moderate) ([facility]) | | + +------+--------+ + + | Protein/Creatinine | Lab | Routin | Chronic kidney | Expected: | | Ratio, Urine | | e | disease, stage III | 03/07/2019, Expires: | | | | | (moderate) ([facility]) | 01/15/2021 | | | | | Proteinuria Type 1 | | | | | | diabetes mellitus | | | | | | with diabetic | | | | | | nephropathy ([facility]) | | | | | | Chronic kidney | | | | | | disease, stage III | | | | | | (moderate) ([facility]) | | + +------+--------+ + + documented as of this encounter Visit Diagnoses + + | Diagnosis | + + | Chronic kidney disease, stage III (moderate) (HCC) Chronic kidney disease, Stage III | | (moderate) | + + | Proteinuria | + + | 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
--- OUTSIDE RECORDS SUMMARY | ~2020-03-21 | XMS | Clinical Summary ---
Demographics + + + | Address | [address] | | | [place] [address] | + + + | Home Phone [...] | Samantha Ramos | ECON | [address] | | | | | [place], [place] | | | | | [address] | | + + + + + Care Team Providers + +------+ + | Care Therapy Coordinator Name | Role | Phone | + +------+ + | Erich Yates PA-C | PCP | | + +------+ + Source Comments VER[facility] is [facility] and [facility] Allergies + + + + + + [...] | | | + +--------+ +--------+-------+---------+--------+ | DOG LICENSER MEDICAID | DOG LICENSER | xxxxxxxx | 04/03/20 | | | [...] [place] | | | 1 (Home) | [address] | + +--------+ +--------+ + + Advance [...]
--- OUTSIDE RECORDS SUMMARY | ~2020-03-21 | XMS | Encounter Summary ---
Demographics + + + | Address | [address] | | | [place] [address] | + + + | Home Phone [...] + + + | Author | [facility] | + + + | Organization | [facility] | + + + | Address | Unknown | + + + | Phone | Unavailable | + + + Support + + + + + | Name | Relationship | Address | Phone | + + + + + | Samantha Ramos | ECON | [address] | | | | | [place] | | | | | [address] | | + + + + + Care Team Providers + +------+ + | Care Morale Officer Name | Role | Phone | [...] | Specialty | Endocrinology | Diagnoses | [place], | Perla, | | | Services | Diabetes & | Type I | Neri Reynoso MD | Ashanti North MD | | | Required | Metabolism | (juvenile | [place] | [address] | | | | | type) | CLINIC | [facility] | | | | | diabetes | [address] | Rd | | | | | mellitus | BUILDING | [place], [place] | | | | | without | [address] | [address] | | | | | mention of | [address] | Phone: | | | | | complication | [place], | [phone] | | | | | , not stated | [place] [address] | Fax: | | | | | as | Phone: | [phone] | | | | | uncontrolled | [phone] | | | | | | | Fax: | | | | | | | [phone] | | +--------+ + + + + + Encounter Details +--------+---------+ + + + | Date | Type | Department | Care Team | Description | +--------+---------+ + + + | 11/01/ | Office | Efrain Clarke | Ashanti Perla, | DM w/o Complication | | 2007 | Visit | Diabetes Health | [address] | Type I (Primary Dx) | | | | [facility] | [facility] | | | | | Pavilion [address] | [place], [place] | | | | | [address] | [address] | | | | | Physician's | [phone] | | | | | Pavilion, [address] | | | | | | [place], [place] | | | | | | [address] | | | | | | [phone] | | | +--------+---------+ + + + [...] week a nd fax to me on [phone]- or call/email earlier if blood sugars running consistently low . My email address is [email or web address] 2. Take 1 unit insulin for every [...] 1 week and fax to me on [phone]- or call/email earlier if blood sarabia gars running consistently low. My email address is [email or web address] 2. Take 1 unit insulin for every [...] in this encou nter Plan of Treatment + + +--------+ + + | Name | Type | Priori | Associated Diagnoses | Order Schedule | | | | ty | | | + + +--------+ + + | NC COLLECTION | Procedures | Routin | DM w/o | Ordered: 11/01/2007 | | CAPILLARY BLOOD | | e | Complication Type I | | | SPECIMEN | | | | | + + +--------+ + + | NC GLYCATED | Lab | Routin | DM [...] + + + + + | [facility] | [address] | [place], [place] | | | [facility] CARE | [address] | [address] | | | TESTS | | | | + + + + + | [facility] | [address] | [place], [place] | | | TESTS | [address] | [address] | | + + + + + documented in this encounter Visit Diagnoses + + | Diagnosis | + + | Type I (juvenile type) diabetes mellitus without mention of complication, not stated | | as uncontrolled - Primary | + + documented in this encounter
--- OUTSIDE RECORDS SUMMARY | ~2020-03-21 | XMS | Encounter Summary ---
Demographics + + + | Address | [address] | | | [place] [address] | + + + | Home Phone | | + + + | Preferred Language | Unknown | + + + | Marital Status | Single | + + + | Baptism Affiliation | NON | + + + [...] Samantha Ramos | ECON | [address] # | | | | | [place] | | | | | [address] | | + + + + + Care Team Providers + +------+ + | Care Brand Executive Name | Role | Phone | + [...] bone and | [address] | [address] [place], | | | | | articular | [place], [place] | [place] | | | | | cartilage | [address] | [address] | | | | | Loose body | Phone: | Phone: | | | | | in upper arm | [phone] | [phone] | | | | | joint | Fax: | Fax: | | | | | Procedures | [phone] | [phone] | | | | | CONSULT TO [...] | | | | Mailcode: PV430 | [place], [place] | Uncertain Behavior | | | | [facility] | [address] | of Bone and | | | | [place], [place] | [phone] | Articular Cartilage | | | | [address] | | | | | | [phone] | | | +--------+---------+ + + + [...] Codeine Social history: The patient lives in [place], [place]. 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
--- OUTSIDE RECORDS SUMMARY | ~2020-03-21 | XMS | Encounter Summary ---
Demographics + + + | Address | [address] | | | [place] [address] | + + + | Home Phone [...] Samantha Ramos | ECON | [address] | | | | | [place] | | | | | [address] | | + + + + + Care Team Providers + +------+ + | Care Swimming Pool Plasterer Helper Name | Role | Phone | + +------+ + | Erich Yates PA-C | PCP | | + +------+ + Encounter Details +--------+ + + + + | Date | Type | Department | Care Team | Description | +--------+ + + + + | 01/22/ | Abstract | Digestive Health | Neri Steven MD | | | 2020 | | [place] [facility] [address] | [address] | | | | | [address] | [address] [place], | | | | | Mailcode: [place] | [place] [address] | | | | | for Health and | [phone] | | | | | [facility] 2 | | | | | | [place], [place] | | | | | | [address] | | | | | | [phone] | | | +--------+ + + + [...]
--- OUTSIDE RECORDS SUMMARY | ~2020-03-21 | XMS | Encounter Summary ---
Demographics + + + | Address | [address] | | | [place] [address] | + + + | Home Phone [...] | Samantha Ramos | ECON | [address] | | | | | [place] | | | | | [address] | | + + + + + Care Team Providers + +------+ + | Care Case Managers Name | Role | Phone | + [...] 2019 | | Center at [facility] [address] | [address] | Review | | | | [address] | [place], [place] | | | | | Mailcode: Center | [address] | | | | | for Health and | [phone] | | | | | [place] [address] | | | | | | [place], [place] | | | | | | [address] | | | | | | [phone] | | | +--------+ + + + [...]
--- OUTSIDE RECORDS SUMMARY | ~2020-03-21 | XMS | Encounter Summary ---
Demographics + + + | Address | [address] | | | [place] [address] | + + + | Home Phone | | + + + | Preferred Language | Unknown | + + + | Marital Status | Single | + + + | Pentecostal Affiliation | NON | + + + [...] Samantha Ramos | ECON | [address] | | | | | [place] | | | | | [address] | | + + + + + Care Team Providers + +------+ + | Care Manager Unit Name | Role | Phone | + [...] | Procedural Unit at | MD Jerome [address] | | | | | [address] | [facility] | | | | | [address] | [place], [place] | | | | | Flore[place], | [address] | | | | | 4th floor [place], | [phone] | | | | | [place] [address] | | | | | | [phone] | | | +--------+ + + + [...]
--- OUTSIDE RECORDS SUMMARY | ~2020-03-21 | XMS | Encounter Summary ---
Demographics + + + | Address | [address] | | | [place] [address] | + + + | Home Phone [...] [place] | | | | | [address] | | + + + + + Care Team Providers + +------+ + | Care Utility Locator Name | Role | Phone | + [...] + + | 09/29/ | Office | [facility] | Tc Mora | Nephrolithiasis | | 2019 | Visit | [address] | MD [address] | (Primary Dx); | | | | OMER Ricardo | [place] | Hyperkalemia; Stage | | | | [address] | [address] | 3 chronic kidney | | | | [phone] | | disease (HCC) | +--------+---------+ + [...] Surgeon: Tc Mora MD; Location: [facility]IN [place] Family History: Family History Problem [...] pH, Urine 6.0 5.0 - 8.0 Specific [place] 1.012 1.001 - 1.030 Protein, Urine 100 [...] ECGs available Confirmed by KARO FLORES, CRISTINE ([id number]) on 09/21/2018 6:31:13 AM Lab Results Component [...] have not thoroughly proofread this note, and supervisor fabrication department errors are very likely to occur. CC: VIKI Anand documented in this encounter Plan of Treatment +--------+---------+ + + + | Date | Type | Specialty | Care Team | Description | +--------+---------+ + + + | 05/07/ | Office | Nephrology | Winston Whitman MD | | | 2020 | Visit | | [address] [facility] [address] [facility] | | | | | | 160 [place], [place] | | | | | | [address] | | | | | | | | +--------+---------+ + + + documented as of this encounter Visit Diagnoses + + | Diagnosis | + + | Nephrolithiasis - Primary Calculus of kidney | + + | Hyperkalemia Hyperpotassemia | + + | Stage 3 chronic kidney disease (HCC) | + + documented in this encounter
--- OUTSIDE RECORDS SUMMARY | ~2020-03-21 | XMS | Encounter Summary ---
Demographics + + + | Address | [address] | | | [place] [address] | + + + | Home Phone [...] [place] | | | | | [address] | | + + + + + Care Team Providers + +------+ + | Care Wire Mill Operator Name | Role | Phone | + +------+ + | Erich Yates | PCP | | + +------+ + Encounter Details +--------+ + + + + | Date | Type | Department | Care Team | Description | +--------+ + + + + | 03/16/ | Orders Only | [facility] | Conversion | | | 2018 | | NEPHROLOGY [place] | Transaction, | | | | | [address] | Provider Unknown | | | | | [address] [place], [place] | | | | | | [address] | (Fax) | | | | | [phone] | | | +--------+ + + + [...] 2020 | Visit | | [address] [facility] | | | | | | [address] [place], [place] | | | | | | [address] | | | | | | | [...]
--- OUTSIDE RECORDS SUMMARY | ~2020-03-21 | XMS | Encounter Summary ---
Demographics + + + | Address | [address] | | | [place] [address] | + + + | Home Phone [...] [place] | | | | | [address] | | + + + + + Care Team Providers + +------+ + | Care Music Education Director Name | Role | Phone | + +------+ + | Emmanuel Saavedra | PCP | | + +------+ + Encounter Details +--------+ + + + + | Date | Type | Department | Care Team | Description | +--------+ + + + + | 03/04/ | Orders Only | [facility] | Winston Whitman MD | Essential | | 2020 | | NEPHROLOGY [place] | [address] | hypertension | | | | [address] [place] | [address] [place], [place] | (Primary Dx); 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[place], [place] | [address] | 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 | | | | [phone] | | ([facility]); CKD (chronic | | | | | | kidney disease) | | | | | | stage 4, GFR 15-29 | | | | | | ml/min ([facility]); | | | | | | Nephrotic [...] 2020 | Visit | | [address] [facility] [address] | | | | | | [address] [place] | | | | | | [address] | | | | | | | [...] | 03/04/2021 | | | | | ([facility]) CKD (chronic | | | | | | kidney disease) | | | | | | stage 4, GFR 15-29 | | | | | | ml/min ([facility]) | | | | | | Nephrotic [...] | | | ([facility]) CKD (chronic | | | | | | kidney disease) | | | | | | stage 4, GFR 15-29 | | | | | | ml/min ([facility]) | | | | | | Nephrotic [...] | | | ([facility]) CKD (chronic | | | | | | kidney disease) | | | | | | stage 4, GFR 15-29 | | | | | | ml/min ([facility]) | | | | | | Nephrotic [...] | | | ([facility]) CKD (chronic | | | | | | kidney disease) | | | | | | stage 4, GFR 15-29 | | | | | | ml/min ([facility]) | | | | | | Nephrotic [...] | | | ([facility]) CKD (chronic | | | | | | kidney disease) | | | | | | stage 4, GFR 15-29 | | | | | | ml/min ([facility]) | | | | | | Nephrotic [...] | | | ([facility]) CKD (chronic | | | | | | kidney disease) | | | | | | stage 4, GFR 15-29 | | | | | | ml/min ([facility]) | | | | | | Nephrotic [...]
--- OUTSIDE RECORDS SUMMARY | ~2020-03-21 | XMS | Encounter Summary ---
Demographics + + + | Address | [address] | | | [place] [address] | + + + | Home Phone [...] Samantha Ramos | ECON | [address] # | | | | | [place] | | | | | [address] | | + + + + + Care Team Providers + +------+ + | Care Administrative Assistant Receptionist Name | Role | Phone | + [...] | | | | | diabetes | [place], [place] | floor | | | | | mellitus | [address] | [place], [place] | | | | | (HCC) | Phone: | [address] | | | | | Procedures | [phone] | Phone: | | | | | CONSULT TO | Fax: | [phone] | | | | | ENDOSCOPY | [phone] | Fax: | | | | | UNIT: EGD | | [phone] | + +--------+ + + + + [...] | | 2020 | | Center at [facility] [address] | [address] [facility] | | | | | [address] | [address] [place], | | | | | Mailcode: [place] | [place] [address] | | | | | for Health and | [phone] | | | | | [facility] 2 | | | | | | [place], [place] | | | | | | [address] | | | | | | [phone] | | | +--------+ + + + [...]
--- OUTSIDE RECORDS SUMMARY | ~2020-03-21 | XMS | Encounter Summary ---
Demographics + + + | Address | [address] [place] | | | [place] [address] | + + + | Home Phone [...] + + + | Author | [facility] | | | and [place] | + + + | Organization | [facility] | | | [...] [id number] | | | | | [address] | | + + + + + Care Team Providers + +------+ + | Care Stopper Setter Name | Role | Phone | + [...] + + | 03/09/ | Hospital | [facility] | Allen Barnes, | Acute metabolic | | 2019 - | Encounter | [facility] | [address] | encephalopathy; CKD | | | | [address] [place] | [place] RICARDO | (chronic kidney | | 03/14/ | | [place] [address] | [id number] | disease) stage 4, | | 2019 | | [phone] | | GFR 15-29 ml/min | | | | | Fidel Bledsoe, | ([facility]); Hypoglycemia; | | | | | [address] | Severe | | | | | [place] | protein-calorie | | | | | [address] | malnutrition ([facility]); | | | | | [phone] | 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 ([facility]); | | | | | | Essential | | | | | | hypertension; | | | | | | Diabetic | | | | | | gastroparesis ([facility]); | | | | | | Epigastric [...] intake during the evening. Patient also takes Guadalupe 2 tablets every 3 hours and pregabalin for his chronic pain synd sharifa. The Pt is routinely followed by the [facility] to assist with his analgesic regimen. EMS was called when Mr Jimmy was found unresponsive. Glucose level on their arrival was fo und to be 45. The patient was given dextrose 50 and was transported to [facility] he remained difficult to arouse. Baseline labs [...] continued management of his pain syndrome by [facility]. Short term rehab has been [...] Fidel Bledsoe MD, 03/14/2020 2:10 PM PDT [facility] documented in this encounter Medications at Time [...] MEDICATION LIST X Doctor's office: Dr. Jim ([facility] - has a pain contract) Dr. Cornelius Hong Pharmacy list names: [facility] Everywhere X Outside Information Vaccines up to date? Influenza No Pneumococcal No Tdap Yes Shingles No Noted medications discrepancies or medication-related issues: Allergy Alerts: Allergy Added: Reaction: Clindamycin Per mother: facial swelling, eyes swelled shut, nausea/vomiting. Dosage/Form/Frequency change: INSURANCE OPERATIONS REP Medication: Prior to Admission Sig: Correct Dosage/Form: [...] allergies. These were not added to the [facility] allergy list. Patients mother would like to get a "glucagon inhaler" for the patient. Patients mother states she is concerned about him coming home too soon before he is healed. She would like a prescription for omeprazole for him since ranitidine was recalled. She states he is almost to the point where he will try to leave [place]. She states she knows h e is not medically stable enough to leave in the state he is in. Medication: Prior to Admission Sig: Patient taking differently INSURANCE OPERATIONS REP as: Insulin glargine 100 units/ml inj 10 units under the skin nightly 4 units under the skin nightly due to low blood sugar Patient has an appointment to establish care with a new radio time buyer Dr. Gary after his radio time buyer retired. Insulin glargine dosing at the last [...] appointment to establish care with a new radio time buyer (Dr. Gary) after hi s radio time buyer retired. Insulin lispro dosing at the last discharge from Dr. Zee in [place] is the most current prescription. Ondansetron 8 mg ODT 8 mg by mouth twice daily 1 tab by mouth 1-2 times daily as needed for nausea/vomiting. Best possible INSURANCE OPERATIONS REP medication list after pharmacy review: PT REPORTED [...] performed and electronically signed by Analilia Parsons, All Purpose Clerk 2019 4:09 PM PDT Reviewed by Stephanie Ramirez, PharmDominick 03/14/2020 10:01 AM PDT tillerFidel MD - 03/13/2020 4:01 PM PDTForm atting of this note might be different from the original. HOSPITALIST progress NOTE [facility] 03/13/2020 Rounding Physician: Fidel Bledsoe MD Patient Name: Brooks Marquez : 1990 Medical Record: [id number] Primary Hospital Problem: encephalopathy HPI: This is [...] continued to take. Patient does also takes Guadalupe 2 tablets every 3 hours and pregabalin. E MS was called and the glucose level was found to be 45, patient was given dextrose 50 and wa s transported to [facility] where he remained difficult to arouse. Baseline [...] he may, in fact, be back at [facility].. He reportedly is known to nephrology [...] only for funguria. Review of records from [place] does not s uggest that he received [...] Bledsoe MD, DATE/TIME: 03/13/2020 4:01 PM PDT [facility] HOSPITALIST TEAMElectronically signed by Fidel Bledsoe MD at 020 4:09 PM PDTStiller, Fidel North MD - 03/12/2020 7:22 AM PDT HOSPITALIST progress NOTE [facility] Lety Davidson 03/12/2020 Rounding Physician: Fidel Bledsoe MD Patient Name: Brooks Marquez : 1990 Medical Record: [id number] Primary Hospital Problem: encephalopathy HPI: This is [...] continued to take. Patient does also takes Guadalupe 2 tablets every 3 hours and pregabalin. E MS was called and the glucose level was found to be 45, patient was given dextrose 50 and wa s transported to [facility] where he remained difficult to arouse. Baseline [...] only for funguria. Review of records from [place] does not s uggest that he received [...] 8. Dispo Clinically stable For transfer to [facility] Electronically signed by: Fidel Bledsoe MD, DATE/TIME: 03/12/2020 7:22 AM PDT [facility] HOSPITALIST TEAMElectronically signed by Fidel Bledsoe [...] Faust MD - 03/10/2020 7:34 AM PDT [facility]G Hospitalist Progress Note Brooks Marquez [...] far no growth. Review of records from [place] does not sugges t that he received [...] Javon Faust MD 03/10/2020 7:34 AM PDT [facility] Portions of this chart may have been created with groopify voice recognition software. Occasi onal wrong-word or [...] Dong MD - 03/09 10:53 AM PDT [facility] PMG Hospitalist Progress Note Brooks Marquez [...] Patient had a negative head CT at [facility] and his urine d oes appear to [...] any further deterioration then I would con bean snipper initiating this therapy. This evening at around 6 PM the nursing staff was told by th e patient's mother that he takes 10 mg hydrocodone's, 2 pills every 4 hours. Our records on review of the database from [place] and [place] suggest he has 10 mg pills, 1 [...] Javon Faust MD 03/09/2020 11:11 AM PDT [facility] Portions of this chart may have been created with groopify voice recognition software. Occasi onal wrong-word or [...] 12:39 AM PDTAr[facility]. Sliding transfer to bed. Restless/crying/moaning. Not following directions. Prefers to lie on rt side. Excoriated sacral area. Dressing removed from lt foot shows chron ic wound currently dry. Skin dry/flaky/scaley documented in this enc ounter H&P Notes Fidel Bledsoe MD - 03/11/2020 7:47 AM PDTFormatting of this note might be different f rom the original. HOSPITALIST progress NOTE [facility] [place] 03/11/2020 Rounding Physician: Fidel Bledsoe MD Patient Name: Brooks Marquez : 1990 Medical Record: [id number] Primary Hospital Problem: encephalopathy HPI: This is [...] to take. Shon henderson does also takes Guadalupe 2 tablets every 3 hours and pregabalin. EMS was called and the gluc ose level was found to be 45, patient was given dextrose 50 and was transported to [facility] where he remained difficult to arouse. Baseline [...] only for funguria. Review of records from [place] does not s uggest that he received [...] hypertension, neuro assessment. Electronically signed by: Fidel Bledsoe MD, DATE/TIME: 03/11/2020 7:47 AM PDT [facility] HOSPITALIST TEAMElectronically signed by Fidel Bledsoe MD at 020 11:15 AM Allen Deng MD - 03/09/2020 12:43 AM PDT [place], [place] HOSPITALIST HISTORY & PHYSICAL Patient: Brooks Marquez : 1990: Age: 29 y.o. MedRec: [id number] Admission date: 03/09/2020 Hospital day # : 0 Physician author: Allne Barnes MD Today: 03/09/2020 CHIEF COMPLAINT: Acute metabolic encephalopathy HISTORY OF PRESENT ILLNESS: This is a 29 y.o. male with a history of CKD 4, hypertension, chronic pain, gastroparesis, type 1 diabetes status post right BKA who presents after being found down. At 9:30 in the [facility]. Patient went to sleep and [...] ch was received yesterday. Patient does take Guadalupe 2 tablets every 3 hours and additionally pregabalin. EMS was called and the glucose level was found to be 45, patient was given dex trose 50. Glucose level improved to the 100s. Patient was taken to [facility] and still remained difficult to arouse. Baseline [...] PLACEMENT; Surgeon: Tc Mora MD; Location: [facility] MAIN OR FAMILY HISTORY: family history [...] tone as per the mother. He takes Guadalupe 2 tablets every 3 hours and pregabalin. WBC 10.2, hemoglobin 12 .1. UA negative. Sodium 142, creatinine 4.97. CT head and chest x-ray were unremarkable a t outside facility. -We will order baseline labs including hepatic function panel, ammonia, TSH, vitamin B12, a lcohol level -We will monitor Accu-Cheks closely -IVF -Ordered procalcitonin -UA, UDS -Holding Guadalupe and pregabalin Addendum: Procalcitonin was elevated. UA [...] PhosLo Chronic pain Patient has been taking Guadalupe 2 tablets every 3 hours at home [...] Tejal mcneal and patient adamantly refused placement. [facility] Documentation I expect this patient will be hospitalized for greater than 2-midnights and expect the post -hospital plan to be discharge to home or to an adult foster home. Electronically signed by: Allen Barnes MD 03/09/2020 12:44 AM [facility] documented in this e ncounter Procedure [...] Fidel Bledsoe MD PCP: Emmanuel Saavedra Palliative Grinder Set Up Operator Universal: DANA Carrizales REASON FOR CONSULTATION: We were [...] rs prior. He was initially taken to [facility] and transferred to [facility]. He has be en found to have [...] his cognitive baseline per his mother / family day carer. However, he has not completely regain ed his functional status. Samantha states at baseline, he is able to sit up in bed, roll over and assist with transfers. Improvements include return of ability to hold utensils for eatin g and again, cognitive function. Not found in [facility] EHR, but reported by the patient's mother, Alin suffered a stroke 2 year s ago. 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 He has a 9 year old son, wears a tattoo with ok s name. He moved home to be with his mother in [place]. She is now his paid family day carer. He sees a shell machine operator from [facility]. Alin states he is waiting for a port for d ialysis. Palliative Care consult was requested by the patient's mother / caregiver to discuss pallia tive care and how it may be accessed as an outpatient. Reviewed [place] and [facility] FOUNTAIN SUPERVISOR for Alin and Brooks Marquez; Found only prescriptions for hydrocodone-acetaminophen monthly for qty 112 tablets. DISCUSSION AND PLAN Discussion: 03/14/2020 Attended by: the patient and palliative care [facility] Palliative Care Service Z51.5 Palliative Care Diagnoses: [...] Chronic Opioid therapy Alin is followed by [facility] where he sees Dr [...] outpatient is not yet available in the [place] or [facility]. Sending a note to Palliative Care in [place], but this is very likely too distant for them t o cover. Return to [facility] for pain / palliative care [...] POLST: No Surrogate Decision Maker: Based on [place] State Informed Consent Surrogate Hierarchy RCW [phone], would be the highest a vailable individual(s) which is/are Gia Ramos, mother. Contact: DP Paperwork Samantha states she has power of trust and estates attorney documentation at home. Prognosis: guarded Hospice [...] 29 y.o. male who was admitted to [facility] on 03/09/2020. See Assessment, Discussion and [...] PLACEMENT; Surgeon: Tc Mora MD; Location: [facility] MAIN OR Family History Problem Relation [...] control/protection: Condom Spiritual History & Screening: Mitra: Sabianist See note by Ammonia Solution Preparermaxi Garcia Spiritual Support: Spiritual care is an [...] HPI. Symptom Assessment Tool (based on Modified [place] Symptom Assessment Scale) [] Unable or incomplete [...] the patient, his mother, attending physician and case management social worker Total time of approximately 183 minutes (1781-3039=60min face to face; 5833-4695) was spen t with the patient and/or [...] contact the Palliative Care Team with questions [phone] Messages will be retrieved within one business day. GERMAIN: AFTT - adult failure to thrive LAWN SPRINKLER SERVICER - advanced registered nurse practitioner BiPAP - bilevel positive airway pressure BP- blood pressure CN-cranial nerves CPAP-continuous positive airway pressure dc'd - discharged or discontinued EOMI-extraocular movement intact HR-heart rate HSM-hepatosplenomegaly LE-lower extremity MD- doctor of medicine [id number] saturation PERRLA-pupils equal, round, reactive to light [...] Needs: (based on 65 kg) Kcal needs: 8479-1628 Kcals/day Protein needs:75-90 grams of protein/day Fluid goal:7253-5248 cc fluid per day Nutrition Diagnosis: Severe [...] in 2 days. Available as needed, ext [phone] Assessment: Diet Order: Recent Labs 03/11/20 0406 [...] states she had been a M/ S TITLE CHECKER for years and is his paid caregiver. She states she had a long talk with her son last night over the phone, and he really wants to come home and not go to [facility]. Samantha states that he would [...] but is not getting any communication from [facility]. He reports that he will get back with this CM if he hears from them. This marketing underwriter gave LYDIA Jeong, the above information since [...] discharge lan of Care - Adenike Garcia, MIX HOUSE TENDER - 03/14/2020 3:31 PM PDT Problem: Discharge Planning Goal: Patient's discharge needs will be identified in a timely manner Outcome: Met Goal: Patient will be discharged in a safe manner Outcome: Met This CM spoke with Rex, Hand Trucker at [facility]. Rex said they received [facility] referral and will have the hospitalist that comes on at 1500 to review it. They would not be able to accept Alin until earliest Tuesday. Called [facility] and spoke with Alana. She states that they last saw Alin on the and then had to discharge him as he was admitted to the hospital and needed re-c ertified. At this time, they are not accepting any new referrals and because Alin would be a new referral, they cannot accept him to services until this order is lifted. This case management social worker spoke with Alin about his discharge plan. Alin states that he wants to go home today. We dicussed [facility] for further therapy prior to going home and Alin declined, stating that he would rather go home and do therapy at home if he can. He sa id he has all the needed DME set up and is aware that PT and his PCP are coordinating to get him a specialized wheelchair. Alin would like [facility] to resume once the y are able to start services again. This CM did explain that [facility] cannot accept him at this time. He declined a referral to [facility] in [facility]'s absence at this ti pa. This CM called his mother Samantha and explained above. She is ready for him to come home. hugo said he will need transportation by Medicaid transport. Samantha will be calling [facility] to continue to follow up with them--to get him back on services as soon as they are able . She also declined a HH referral to [facility] stating that Alin works well with the HH staff and doesn't want to start all over with a new agency. Called [facility] and arranged for a wheelchair bead picker with transportation solutions at 1515. PLAN: Home with mother and [facility] transport at 1515. Electronically signed by: Adenike dhillon MIX HOUSE TENDER 03/14/2020 3:50 PM PDT lan of Care - Hasmukh Ryder, PT - 03/14/2020 10:31 AM PDTPhysical Thera py Plan of Care DME update Note Summary: I spoke with patients PCP, the nutritional assistant for Dr. Emmanuel Saavedra MD, expressing [...] bed mobility, sitting balance/tolerance, and [facility] using overhead lift. Co-treat with OT [...] mobilize at level safe for home discharge, [facility] in dicating significant impairment with basic functional mobility, and medical status. Brooks will benefit from continued therapeutic intervention to address ongoing impairments and increase safety and independence with activities necessary for safe discharge. Refer be low for specific details regarding functional levels. Physical Therapy Discharge Recommendations are: Recommended discharge disposition: snf facility Post discharge physical therapy recommendation: ongoing [...] pt to bedside chair Bed-Chair, Level of Bowie: dependent ( less than 25% patient effort), 2 person jaz t required Chair-Bed, Level of Bowie: not tested(pt up in chair at end of session) Ytl-Czscn-Ujf, Assistive Device: mechanical lift Safety Issues: sequencing ability decreased, weight-shifting ability decreased Impairments: muscle tone abnormal, decreased flexibility, ROM decreased, strength decreased , impaired balance, coordination impaired, motor control impaired, postural control impaired , other (see comments)(decreased activity tolerance) Bed Mobility improving, con't to require cues and trunk support to complete supine>sit Assistive Device: bed rails, HOB elevated Roll Left, Level of Bowie: not tested Roll Right, Level of Bowie: contact guard assist, verbal cues required, tactile cues required Scoot/Bridge, Level of Bowie: not tested Supine to Sit, Level of Bowie: minimal assist (75% patient effort), set up required, verbal cues required, tactile cues required Sit to Supine, Level of Bowie: not tested(pt up in chair at end [...] STG Status progressing at 03/14/2020 1010 STG Bowie Level modified independent at 03/12/2020 1525 STG Assistive Device bed rails at 03/12/2020 1525 Slosij-Mul-Fwsalr Goal Most Recent Value STG Status progressing at 03/14/2020 1010 STG Bowie Level minimum assist (75% patient effort) at 03/12/2020 1525 STG Assistive Device bed rails, HOB elevated at 03/12/2020 1525 Kzk-Kaqso-Gjz Goal Most Recent Value STG Status progressing at 03/14/2020 1010 STG Bowie Level maximum assist (25% patient effort) at [...] various stages of healing." Will f/u w/ [facility] regarding status of consult. Reviewing pt's DME [...] Therapy Discharge Recommendations are: Recommended discharge disposition: snf facility(has impaired skin integrity, h as needs [...] for ~50% of meal. Self-Feeding, Level of Bowie: moderate assist (50% patient effort), maximal assist [...] placement of sl ing. Bed-Chair, Level of Bowie: 2 person assist required, dependent ( less than 25% patie nt effort) Tvs-Jzyde-Qlq, Assistive Device: (Overhead lift) Toilet, Level of Bowie: dependent ( less than 25% patient effort), [...] STG Status progressing at 03/14/2020 1009 STG Bowie Level minimal assist (75% patient effort) at 03/12/2020 1524 Grooming Goal Most Recent Value STG Status continued at 03/14/2020 1009 STG Bowie Level minimum assist (75% patient effort) at 03/12/2020 1524 UB Dressing Goal Most Recent Value STG Status continued at 03/14/2020 1009 STG Bowie Level minimum assist (75% patient effort) at 03/12/2020 1524 LB Dressing Goal Most Recent Value STG Status continued at 03/14/2020 1009 STG Bowie Level moderate assist (50% patient effort) at 03/12/2020 1524 Toilet Transfer Goal Most Recent Value STG Status continued at 03/14/2020 1009 STG Bowie Level minimum assist (75% patient effort) at 03/12/2020 1524 OT Time Calculation OT Additional Treatment Time: Co-treatment OT Co-treatment Start Time: 933 OT Co-treatment Stop Time: 1008 OT Co-treatment Total Time: 35 OT Total Treatment Time: 35 Timed TX Code Minutes: 35 Electronically signed by: Beth Camarillo OT, 03/14/2020 12:19 PM PDT lan of [facility] Girish Little RN - 03/14/2020 4:56 AM PDTPt is A&O, his speech is slurred and at times hard t o understand but gets his needs across, FC patency maintained and draining urine approprietl y, PO Guadalupe given x1 tab for generalized body pain. [...] Post discharge speech language pathology recommendation: continue RECREATION INSTRUCTOR tx for communication Identified Problems Needing Skilled [...] a. at 03/13/2020 1503 Additional Goals #1 RECREATION INSTRUCTOR Most Recent Value STG Status progressing at 03/13/2020 1503 STG Patient will participate in a cognitive communication assessment to determine severity of impairments and assist in creating an individualized treatment plan. at 03/13/2020 1503 RECREATION INSTRUCTOR Time Calculation RECREATION INSTRUCTOR Individual Start Time: 1430 RECREATION INSTRUCTOR Individual Stop Time: 1503 RECREATION INSTRUCTOR Individual Total Time: 33 RECREATION INSTRUCTOR Missed Treatment Time: 0 RECREATION INSTRUCTOR Total Treatment Time: 33 Timed TX Code [...] Therapy Discharge Recommendations are: Recommended discharge disposition: snf facility Post discharge occupational therapy recommendation: ongoing [...] w/ reduced coordination, strength. Self-Feeding, Level of Bowie: moderate assist (50% patient effort), maximal assist [...] STG Status progressing at 03/13/2020 0958 STG Bowie Level minimal assist (75% patient effort) at 03/12/2020 1524 Grooming Goal Most Recent Value STG Status continued at 03/13/2020 0958 STG Bowie Level minimum assist (75% patient effort) at 03/12/2020 1524 UB Dressing Goal Most Recent Value STG Status continued at 03/13/2020 0958 STG Bowie Level minimum assist (75% patient effort) at 03/12/2020 1524 LB Dressing Goal Most Recent Value STG Status continued at 03/13/2020 0958 STG Bowie Level moderate assist (50% patient effort) at 03/12/2020 1524 Toilet Transfer Goal Most Recent Value STG Status continued at 03/13/2020 0958 STG Bowie Level minimum assist (75% patient effort) at [...] mobilize at level safe for home discharge, [facility] in dicating significant impairment with basic [...] elevated, draw sheet Roll Left, Level of Bowie: not tested Roll Right, Level of Bowie: contact guard assist, verbal cues required, tactile cues required Scoot/Bridge, Level of Bowie: dependent ( less than 25% patient effort), 2 person as sist required, verbal cues required, tactile cues required Supine to Sit, Level of Bowie: minimal assist (75% patient effort), set up required, verbal cues required, tactile cues required Sit to Supine, Level of Bowie: moderate assist (50% patient effort), 2 person [...] STG Status progressing at 03/13/2020 0950 STG Bowie Level modified independent at 03/12/2020 1525 STG Assistive Device bed rails at 03/12/2020 1525 Whelfi-Njc-Jrinut Goal Most Recent Value STG Status progressing at 03/13/2020 0950 STG Bowie Level minimum assist (75% patient effort) at 03/12/2020 1525 STG Assistive Device bed rails, HOB elevated at 03/12/2020 1525 Mrr-Qidoh-Yxr Goal Most Recent Value STG Status new at 03/12/2020 1525 STG Bowie Level maximum assist (25% patient effort) at [...] a safe manner Outcome: Ongoing, progressing This case management social worker faxed a referral to [facility] asking them to review the referr al now that patient has worked with PT to see if he would be a candidate for their swing bed . Will await their review and a returned call. Electronically signed by: Edgardo Shay 03/12/2020 5:01 PM PDT This case management social worker called [facility] to see if swing bed would be a option for thi s patient and spoke with Jenni Hand Trucker. She would like information sent to her as she did not receive the referral. Faxed her a referral packet to [phone]. She states that s he will have the hospitalist review and Rex case management social worker, will get back to this CM in the morning. This CM will speak with patient and his mother further if swing bed is a option. Electronic ally signed by: LYDIA Shay 03/13/2020 5:41 PM PDT eICU Note - Elizabet Mckenzie RN - 03/12/2020 4 :03 PM PDTPatient transfer to . Report given to 4E Mitra BRYANT. All questions answered. Alla ent oriented [...] at l evel safe for home discharge, [facility] indicating significant impairment with basic functional [...] rails, draw sheet Roll Left, Level of Bowie: minimal assist (75% patient effort), verbal cues required , tactile cues required Roll Right, Level of Bowie: minimal assist (75% patient effort), verbal cues require d, tactile cues required Scoot/Bridge, Level of Bowie: dependent ( less than 25% patient effort), [...] STG Status new at 03/12/2020 1525 STG Bowie Level modified independent at 03/12/2020 1525 STG Assistive Device bed rails at 03/12/2020 1525 Cvgtjb-Hlx-Kvlwhf Goal Most Recent Value STG Status new at 03/12/2020 1525 STG Bowie Level minimum assist (75% patient effort) at 03/12/2020 1525 STG Assistive Device bed rails, HOB elevated at 03/12/2020 1525 Xbq-Mchyw-Sbc Goal Most Recent Value STG Status new at 03/12/2020 1525 STG Bowie Level maximum assist (25% patient effort) at [...] Function: From previous hospital stay- Reports mostly Sarhay lift transfers now since wound on L [...] Therapy Discharge Recommendations are: Recommended discharge disposition: snf facility Post discharge occupational therapy recommendation: ongoing [...] was assisted onto bedpan. Toilet, Level of Bowie: dependent ( less than 25% patient effort), 2 person assist r equired, verbal cues required ROM ROM from supine. Anticipate reduction in active mvmts when sitting more upright. L UE ROM: P/AAROM WFL- active shoulder flexion 80* very weakly; WFL elbow flex/ext; IR/ER f rom supine; wrist flex/ext WFL; finger flex/ext WFL very weakly R UE ROM: P/AAROM WFL- active shoulder [id number]*; elbow 40*; WFL IR/ER from supine; WFL wr ist flex/ext; WFL finger flex, reduced finger ext. Strength Profound weakness in all areas. L UE Strength: Grossly 2-/5 R UE Strength: Grossly 2-/5 OT Goal Review Date Most Recent Value STG Review Date 03/19/20 at 03/12/2020 1524 Eating/Self Feeding Goal Most Recent Value STG Status new at 03/12/2020 1524 STG Bowie Level minimal assist (75% patient effort) at 03/12/2020 1524 Grooming Goal Most Recent Value STG Status new at 03/12/2020 1524 STG Bowie Level minimum assist (75% patient effort) at 03/12/2020 1524 UB Dressing Goal Most Recent Value STG Status new at 03/12/2020 1524 STG Bowie Level minimum assist (75% patient effort) at 03/12/2020 1524 LB Dressing Goal Most Recent Value STG Status new at 03/12/2020 1524 STG Bowie Level moderate assist (50% patient effort) at 03/12/2020 1524 Toilet Transfer Goal Most Recent Value STG Status new at 03/12/2020 1524 STG Bowie Level minimum assist (75% patient effort) at [...] Needs: (based on 67 kg) Kcal needs: 0798-7478 Kcals/day Protein needs:75-90 grams of protein/day Fluid goal:1003-0478 cc fluid per day Nutrition Diagnosis: Severe [...] in 5 days. Available as needed, ext [phone] Assessment: Diet Order: For your reference, the [...] PDT Speech Therapy Swallow Plan of Care RECREATION INSTRUCTOR Visit Type: Treatment Note Summary: Brooks has been participating in speech therapy for treatment of Swallow WNL. Emp hasis of session included diet check during lunch meal to ensure diet tolerance with advance d textures. Patient consumed regular solids and thin liquids with TITLE CHECKER assist with no overt s /sx of airway compromise or dysphagia. Patient continues to present with suspected cognitive communication impairments characterized by delayed verbal responses, slow effortful speech. He is able to express needs/wants/questions with effort. Occasional repetitions needed to c learly state. This RECREATION INSTRUCTOR suspects possible neurological component vs acute metabolic [...] Post discharge speech language pathology recommendation: continue RECREATION INSTRUCTOR tx for communication Planned Interventions: Planned Therapy Interventions: diet texture modification, home prog kanwal instruction, patient/caregiver education Recommended Frequency: 4 times/wk, 5 times/wk RECREATION INSTRUCTOR Diagnosis: Swallow WNL At bedside, signs of [...] a. at 03/12/2020 1211 Additional Goals #1 RECREATION INSTRUCTOR Most Recent Value STG Status new at 03/12/2020 1211 STG Patient will participate in a cognitive communication assessment to determine severity of impairments and assist in creating an individualized treatment plan. at 03/12/2020 1211 Electronically signed by: Shante Contreras, Speech Pathologist, 03/12/2020 2:16 PM PDTElectroni marcos signed by Shante Contreras Speech Pathologist at 03/12/2020 2:33 PM PDTPlan of [facility] - Charla pleitez RN - 03/12/2020 4:49 [...] continues on D5L R gtt. [facility] Siobhan Koch RN - 03/11/2020 7:37 PM PDTPatient stable. A&Ox2, forgetful. Limite d extremity strength (weak, poor muscle tone), RBKA. VSS on room air, no fever. Tylenol effe ctive for pain control in addition to fentanyl patch. Behavior improved in the evening, alla ent is argumentative at times, delayed response. 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 She said when she had her stroke two years ago, he cam e to [place] to be with her and has since stayed. She is now his paid family day carer, helping him. She states that she feels [...] home again. We dicussed the option for [facility] Bed as it is in a hospital setting and in his home town. Samantha would b e open to this option. She said that the case management social worker at [facility], Jenni, knows Alin very well. She states that he would adamantly refuse a snf facility so this may be a option if he needs continued therapies, nutrition, etc. prior to going home. Will ask seven alicea for PT/OT evals. Additionally, Samantha states that he has seen a shell machine operator at [facility] and between him and h is PCP, [...] of [facility] vs [facility]ibly [facility] S elberta Bed if appropriate? CM to follow. Electronically signed by: LYDIA Shay 03/11 12:24 PM PDT lan of Care - Ham by, Shante Willis, Speech Pathologist - 03/11/2020 12:00 PM PDTFormatting of this note might be di fferent from the original. Speech Therapy Swallow Plan of Care RECREATION INSTRUCTOR Visit Type: Treatment Note Summary: Brooks has [...] needed but encourage independence with ea lisa. RECREATION INSTRUCTOR reviewed recommendations for upright posture, frequent and [...] Post discharge speech language pathology recommendation: continue RECREATION INSTRUCTOR tx for dysphagia Planned Interventions: Planned Therapy Interventions: diet texture modification, home prog kanwal instruction, patient/caregiver education Recommended Frequency: 4 times/wk, 5 times/wk RECREATION INSTRUCTOR Diagnosis: Swallow WNL At bedside, signs of [...] who is admitted for Altered Mental Status. Mechatronics Technician visit is in response to routine rounding Spiritual Evaluation: Alin appears to struggle expressing his needs. His mother Gia, at his bedside, appear s supportive. She states they have no spiritual or jainism practices, yet she acknowledges comfort knowing public health internship support is available to her son. Spiritual [...] vitals stable. Wou nd consult pending. lan [facility] - Radha Andersen, Speech Pathologist - 03/10/2020 5:27 PM PDT Speech Therapy Swallow Plan of Care RECREATION INSTRUCTOR Visit Type: Initial Evaluation Note Summary: 29 [...] Post discharge speech language pathology recommendation: continue RECREATION INSTRUCTOR tx for dysphagia Planned Interventions: Planned Therapy Interventions: diet texture modification, home prog kanwal instruction Recommended Frequency: 5 times/wk RECREATION INSTRUCTOR Diagnosis: Oral dysphagia with increased risk of [...] questions at this time. Alin lives in [place] with his mother Gia. There is a [...] to feed himself. He has red styrofoam tie binder/roller print tender for his silverware. She reports "his normal [...] Alin will need Medicaid transport arranged with [facility] [phone] w hen medically stable for discharge. Dispo: Home with mother and resumption of [facility]. Electronically signed by: Mariama Fleming 03/10/2020 3:48 PM PDT lan of Care - Polo Garcia Chaplain - 03/10/2020 3:32 PM PDT Spiritual Care Brooks Marquez is a 29 y.o. male who is admitted for Altered Mental Status. Mechatronics Technician visit is in response to routine rounding Spiritual Evaluation: Alin appears to offer no meaningful communication at this time. His mother Gia and hi s brother hope to be here tomorrow morning for a visit. She acknowledged over the phone that Alin grew up with no spiritual or jainism practices yet believes he recently has begun t o search for meaning and purpose to his life. Spiritual Interventions: I offered a supportive presence to both Alin by his hospital bed and his mother over the p hugh Spiritual Outcomes: Neither Alin nor his mother expresses any spiritual, jainism or emotional needs at this time Spiritual [...] 4:17 PM PDTPatient transferred up from [facility] 1130 today. Patient was admitted [...] is his PCG. They li ve in [place]. Per note report, pt has a hospital bed, sarahy lift, and a wheelchair at home. He was disch arged on 02/21/20 with [facility] (RN - Sheron). Plan: CM following Gather more history on patient home / care situation given multiple hospitalizations. CM follow up with [facility] - does pt have a case management social worker? Has there been any APS history? [...] of alertness and inability to follow directions. [facility] reported stool incontinence on arrival to their ED. Camarena placed at [facility], urine output on arrival to [facility] was minimal w/urine whitish yellow and sligh [...] 2019 | Visit | | [address] [facility] | | | | | | [address] | | | | | | [address] | | | | | | | [...] [address] | [place] | [phone] | | [facility] | | [address] | | | - LABORATORY | | [...] [address] | [place] | [phone] | | [facility] | | [address] | | | - LABORATORY | | [...] [address] | [place] | [phone] | | [facility] | | [address] | | | - LABORATORY | | [...] [address] | [place] | [phone] | | [facility] | | [address] | | | - LABORATORY | | [...] + | [facility] | [address] | [place] | [phone] | | [facility] | | [address] | | | - LABORATORY | | [...] mL/min/1.73m2 | [facility] | | | [place] | RATE,ESTIMATED | | MEDICAL | | | | mL/min/1.85b2Upga than | | CENTER - | | [...] + | [facility] | [address] | [place] | [phone] | | [facility] | | [address] | | | - LABORATORY | | [...] [address] | [place] | [phone] | | [facility] | | [address] | | | - LABORATORY | | [...] + + | Performing | Address | City/State/[facility] | Phone Number | | Organization | | | | + + + + + | [facility] | [address] | [place] | [phone] | | [facility] | | [address] | | | - LABORATORY | | [...] [address] | [place] | [phone] | | [facility] | | [address] | | | - LABORATORY | | [...] [address] | [place] | [phone] | | [facility] | | [address] | | | - LABORATORY | | [...] [address] | [place] | [phone] | | [facility] | | [address] | | | - LABORATORY | | [...] 4.25 (H) | 0.70 - 1.30 | [facility] | | | | | mg/dL | [facility] | | | | | | MEDICAL | | | | | | CENTER - | | | | | | LABORATORY | | + + + + + + | eGFR if not | 17 (L)Comment: | >=60 | [facility] | | | | GLOMERULAR FILTRATION | mL/min/1.73m2 | [facility] | | | [place] | RATE,ESTIMATED | | MEDICAL | | | | mL/min/1.88n2Oqmk than | | CENTER - | | [...] ST. | [address] | [place], [place] | [phone] | | [facility] | | [address] | | | - LABORATORY | | [...] [address] | [place] | [phone] | | [facility] | | [address] | | | - LABORATORY | | [...] [address] | [place] | [phone] | | [facility] | | [address] | | | - LABORATORY | | [...] [address] | [place] | [phone] | | [facility] | | [address] | | | - LABORATORY | | [...] [address] | [place] | [phone] | | [facility] | | [address] | | | - LABORATORY | | [...] | | | | | | [facility] | | | | | | MEDICAL [...] mL/min/1.73m2 | [facility] | | | [place] | RATE,ESTIMATED | | MEDICAL | | | | mL/min/1.67t2Tije than | | CENTER - | | [...] [address] | [place] | [phone] | | [facility] | | [address] | | | - LABORATORY | | [...] + | [facility] | [address] | [place] | [phone] | | [facility] | | [address] | | | - LABORATORY | | [...] | | POC | | | [facility] | | | | | | [...] ST. | [address] | [place], [place] | [phone] | | [facility] | | [address] | | | - LABORATORY | | [...] | | GLOMERULAR FILTRATION | mL/min/1.73m2 | [facility] | | | [place] | RATE,ESTIMATED | | MEDICAL | | | | mL/min/1.33d1Wttc than | | CENTER - | | [...] | | | | | mg/dL | [facility] | | | | | | MEDICAL [...] [address] | [place] | [phone] | | [facility] | | [address] | | | - LABORATORY | | [...] difficile, | Toxigenic C. difficile | | [facility] | | | Interp | detected. Consider [...] [address] | [place] | [phone] | | [facility] | | [address] | | | - LABORATORY | | [...] + | [facility] | [address] | [place] | [phone] | | [facility] | | [address] | | | - LABORATORY | | [...] | | POC | | | [facility] | | | | | | [...] [address] | [place] | [phone] | | [facility] | | [address] | | | - LABORATORY | | [...] [address] | [place] | [phone] | | [facility] | | [address] | | | - LABORATORY | | [...] 246 (H)Comment: New | <100 pg/mL | [facility] | | | | method in use as of | | T-VIPS. ANTONINO | | | | November 22, [...] + | [facility] | [address] | [place] | [phone] | | [facility] | | [address] | | | - LABORATORY | | [...] mL/min/1.73m2 | [facility] | | | [place] | RATE,ESTIMATED | | MEDICAL | | | | mL/min/1.71u8Cmkv than | | CENTER - | | [...] [address] | [place] | [phone] | | [facility] | | [address] | | | - LABORATORY | | [...] [address] | [place] | [phone] | | [facility] | | [address] | | | - LABORATORY | | [...] [address] | [place] | [phone] | | [facility] | | [address] | | | - LABORATORY | | [...] [address] | [place] | [phone] | | [facility] | | [address] | | | - LABORATORY | | [...] [address] | [place] | [phone] | | [facility] | | [address] | | | - LABORATORY | | [...] [address] | [place] | [phone] | | [facility] | | [address] | | | - LABORATORY | | [...] [address] | [place] | [phone] | | [facility] | | [address] | | | - LABORATORY | | [...] [address] | [place] | [phone] | | [facility] | | [address] | | | - LABORATORY | | [...] + | [facility] | [address] | [place] | [phone] | | [facility] | | [address] | | | - LABORATORY | | [...] mL/min/1.73m2 | [facility] | | | [place] | RATE,ESTIMATED | | MEDICAL | | | | mL/min/1.07g4Xudf than | | CENTER - | | [...] ST. | [address] | [place], [place] | [phone] | | [facility] | | [address] | | | - LABORATORY | | [...] | [address] | [place] | [phone] | | [facility] | | [address] | | | - LABORATORY | | [...] [address] | [place] | [phone] | | [facility] | | [address] | | | - LABORATORY | | [...] [address] | [place] | [phone] | | [facility] | | [address] | | | - LABORATORY | | [...] + | [facility] | [address] | [place] | [phone] | | [facility] | | [address] | | | - LABORATORY | | [...] not | 15 (L)Comment: | >=60 | [place] | | | | GLOMERULAR FILTRATION | mL/min/1.73m2 | [facility] | | | [place] | RATE,ESTIMATED | | MEDICAL | | | | mL/min/1.75v9Vuhs than | | CENTER - | | [...] [address] | [place] | [phone] | | [facility] | | [address] | | | - LABORATORY | | [...] [address] | [place] | [phone] | | [facility] | | [address] | | | - [...] 273 (H)Comment: New | <100 pg/mL | [facility] | | | | method in use [...] + | [facility] | [address] | [place] | [phone] | | [facility] | | [address] | | | - [...] [address] | [place] | [phone] | | [facility] | | [address] | | | - LABORATORY | | [...] ST. | [address] | [place], [place] | [phone] | | [facility] | | [address] | | | - LABORATORY | | [...] [address] | [place] | [phone] | | [facility] | | [address] | | | - LABORATORY | | [...] | | correlation is recommended. Dr Erlinda Martinze | | + + + West Nile [...] | REFERENCE LAB | | LADAN Price [id number] Target Developer: Sarabjit Love MD, Phone: | [facility] | | [phone] | | + + + + + + + + | Performing | Address | City/State/Zipcode | Phone Number | | Organization | | | | + + + + + | REFERENCE LAB | [address] | [place], [place] | [phone] | | [facility] | [address] | [address] | | + + + + + [...] [address] | [place] | [phone] | | [facility] | | [address] | | | - LABORATORY | | [...] [address] | [place] | [phone] | | [facility] | | [address] | | | - LABORATORY | | [...] + | Performed at: 01 - [place] [address] [facility], | REFERENCE LAB | | [place], [place] [id number] Target Developer: Sarabjit Love MD, Phone: | [facility] | | [phone] | | + + + + + + + + | Performing | Address | City/State/Zipcode | Phone Number | | Organization | | | | + + + + + | REFERENCE LAB | [address] | [place], [place] | [phone] | | [facility] | [address] [facility] | [address] | | + + + + + [...] Gaurav Ortiz, | REFERENCE LAB | | [place], [place] [id number] Target Developer: Sarabjit Love MD, Phone: | [facility] | | [phone] | | + + + + + + + + | Performing | Address | City/State/Zipcode | Phone Number | | Organization | | | | + + + + + | REFERENCE LAB | [address] | [place], [place] | [phone] | | [facility] | [address] | [address] | | + + + + + [...] + | [facility] | [address] | [place], [place] | [phone] | | [facility] | | [address] | | | - LABORATORY | | [...] [address] | [place] | [phone] | | [facility] | | [address] | | | - LABORATORY | | [...] [address] | [place] | [phone] | | [facility] | | [address] | | | - LABORATORY | | [...] [address] | [place] | [phone] | | [facility] | | [address] | | | - LABORATORY | | [...] [address] | [place] | [phone] | | [facility] | | [address] | | | - LABORATORY | | [...] ST. | [address] | [place] | [phone] | | [facility] | | [address] | | | - LABORATORY | | [...] [address] | [place] | [phone] | | [facility] | | [address] | | | - LABORATORY | | [...] + | [facility] | [address] | [place] | [phone] | | [facility] | | [address] | | | - LABORATORY | | [...] [address] | [place] | [phone] | | [facility] | | [address] | | | - LABORATORY | | [...] + | [facility] | [address] | [place], [place] | [phone] | | [facility] | | [address] | | | - LABORATORY | | [...] [address] | [place] | [phone] | | [facility] | | [address] | | | - LABORATORY | | [...] [address] | [place] | [phone] | | [facility] | | [address] | | | - LABORATORY | | [...] + | [facility] | [address] | [place] | [phone] | | [facility] | | [address] | | | - LABORATORY | | [...] [address] | [place] | [phone] | | [facility] | | [address] | | | - LABORATORY | | [...] + | [facility] | [address] | [place] | [phone] | | [facility] | | [address] | | | - LABORATORY | | [...] + | [facility] | [address] | [place] | [phone] | | [facility] | | [address] | | | - LABORATORY | | [...] [address] | [place] | [phone] | | [facility] | | [address] | | | - LABORATORY | | [...] + | [facility] | [address] | [place] | [phone] | | [facility] | | [address] | | | - LABORATORY | | [...] | mL/min/1.73m2 | [facility] | | | [place] | RATE,ESTIMATED | | MEDICAL | | | | mL/min/1.54q0Dqau than | | CENTER - | | [...] [address] | [place] | [phone] | | [facility] | | [address] | | | - LABORATORY | | [...] + | [facility] | [address] | [place] | [phone] | | [facility] | | [address] | | | - LABORATORY | | [...] ST. | [address] | [place] | [phone] | | [facility] | | [address] | | | - LABORATORY | | [...] [address] | [place] | [phone] | | [facility] | | [address] | | | - LABORATORY | | [...] [address] | [place] | [phone] | | [facility] | | [address] | | | - LABORATORY | | [...] | | | | CRISTINE HUDDLESTON MD ([id number]) | | | | | | on [...] ST. | [address] | [place] | [phone] | | [facility] | | [address] | | | - LABORATORY | | [...] + | [facility] | [address] | [place] | [phone] | | [facility] | | [address] | | | - LABORATORY | | [...] - 1.030 | [facility] | | | [place] [place], | | | [facility] | | [...] [address] | [place] | [phone] | | [facility] | | [address] | | | - LABORATORY | | [...] [address] | [place] | [phone] | | [facility] | | [address] | | | - LABORATORY | | [...] | | | POC | | | [facility] | | | | | | MEDICAL [...] ST. | [address] | [place], [place] | [phone] | | [facility] | | [address] | | | - LABORATORY | | [...] | | | | | NPO, Daytime 8897-2570 Use NIGHT | | | | | | | DOSE for doses scheduled: | | | | | | | HS, Nighttime 2807-2271 If the | | | | | [...]
--- OUTSIDE RECORDS SUMMARY | ~2020-03-21 | XMS | Encounter Summary ---
Demographics + + + | Address | [address] | | | [place] [address] | + + + | Home Phone | | + + + | Preferred Language | Unknown | + + + | Marital Status | Single | + + + | Worship Affiliation | Unknown | + + + | Race | Unknown | + + + | Ethnic Group | Unknown | + + + Author + + + | Author | [facility] | | | and [place] | + + + | Organization | [facility] | | [...] [address] | | | | | [address] [address] | | | | | [address] | | + + + + + Care Team Providers + +------+ + | Care Police Officer Crime Prevention Name | Role | Phone | + +------+ + | Emmanuel Saavedra | PCP | | + +------+ + Reason for Visit +---------+ + | Reason | Comments | +---------+ + | Results | 02/15/20 | +---------+ + Encounter Details +--------+ + + + + | Date | Type | Department | Care Team | Description | +--------+ + + + + | 02/18/ | Documentati | [facility] | Kendrick, | Results (02/15/20) | | 2020 | on | [place]PH[place]OLOGY [place] | Alonzo Campos | | | | | [address] | Field Secretary | | | | | [address] [place] | | | | | | [address] | | | | | | [phone] | | | +--------+ + + + [...] 2019 | Visit | | [address] [facility] | | | | | | [address] [place] | | | | | | [address] | | | | | | | | +--------+---------+ + + + documented as of this encounter Procedures + +--------+ + + + | Procedure Name | Priori | Date/Time | Associated Diagnosis | Comments | | | ty | | | | + +--------+ + + + | EXTERNAL LAB: [facility], | Routin | 02/15/2020 | | Results [...] documented in this encounter Results External Lab: PTH, Intact (02/15/2020) + +-------+ + + + | Component | Value | Ref Range | Performed | Pathologist | | | | | At | Signature | + +-------+ + + + | PTH Intact, | 47.44 | 15 - 65 | | | | External | | | | | + +-------+ + + + + + | Specimen | + + | | + + Urinalysis (02/15/2020) + + + + + + | Component | Value | Ref Range | Performed | Pathologist | | | | | At | Signature | + + + + + + | Color | yellow | | | | + + + + + + | Clarity | Slightly Cloudy | | | | + + + + + + | Specific | 1.012 | 1.001 - 1.030 | | | | [place], | | | | | | Urine [...] + + | Glucose, | Negative | Negative | | | | Urine | | | | | + + + + + + | Ketones, | Negative | Negative | | | [...] Leukocyte | Small (A) | Negative | | | | Esterase, | | | | | | Urine | | | | | + + + + + + | CASTS | Negative | | | | + + + + + + | WBC UA | 50 | /HPF | | | + + + + + + | RBC UA | 15 | /HPF | | | + + [...] + + | Urine | + + CBC with Manual Differential (02/15/2020) + + + + + + | Component | Value | Ref Range | Performed | Pathologist | | | | | At | Signature | + + + + + + | WBC | 14.6 (A) | 4.5 - 11.0 | | | + + + + + + | RBC | 2.63 (A) | 4.30 - 5.70 | | | | | | M/uL | | | + + + + + + | Hemoglobin | 7.8 (A) | 13.5 - 18.0 | | | + + + + + + | Hematocrit, | 24.9 (A) | 41.0 - 50.0 % | | | | POC | | | | | + + + + + + | MCV | 94.6 | 81.0 - 99.0 fL | | | + + + + + + | MCH | 30.0 | 27.0 - 33.0 pg | | | + + + + + + | MCHC | 31.0 | 30.0 - 36.0 | | | | | | g/dL | | | + + + + + + | Platelet | 370 | 140 - 440 | | | | Count | | | | | | Plasma | | | | | + + + + + + | RDW | 16.7 (A) | 10.5 - 15.0 | | | + + + + + + | BAL | 76 | 39 - 80 % | | | | Neutrophils | | | | | | % | | | | | + + + + + + | % | 14.1 (A) | 24 - 44 | | | | Lymphocytes | | | | | + + + + + + | Monocyte % | 7.5 | 0 - 12 | | | + + + + + + | Eosinophils | 1.7 | 0 - 6 | | | | % | | | | | + + + + + + | BF % | 1 | 0 - 2 % | | | | Basophils | | | | | + + + + + + + + | Specimen | + + | Blood | + + Iron and Iron Binding Capacity (02/15/2020) + + + + + + | Component | Value | Ref Range | Performed | Pathologist | | | | | At | Signature | + + + + + + | Iron | 18 (A) | 37 - 160 ug/dL | | | + + + + + + | Iron | 13 (A) | 20 - 55 % | | | | Saturation | | | | | + + + + + + | TIBC | 145 (A) | 245 - 400 ug/dL | | | + + + + + + | TRANSFERRIN | 103.9 (A) | 180.0 - 329.0 | | | | | | mg/dL | | | + + + + + + + + | Specimen | + + | Blood | + + Renal Function Panel (02/15/2020) + + + + + + | Component | Value | Ref Range | Performed | Pathologist | | | | | At | Signature | + + + + + + | Na | 135 | 132 - 143 | | | | | | mmol/L | | | + + + + + + | K | 5.6 (A) | 3.6 - 5.1 | | | | | | mmol/L | | | + + + + + + | Cl | 115 (A) | 95 - 112 mmol/L | | | + + + + + + | CO2 | 16 (A) | 19 - 31 mmol/L | | | + + + + + + | Anion Gap | 10 | 7 - 21 mmol/L | | | + + + + + + | Glucose | 92 | 70 - 100 mg/dL | | | + + + + + + | BUN | 48 (A) | 6 - 23 mg/dL | | | + + + + + + | Creatinine | 4.24 (A) | 0.60 - 1.35 | | | | | | mg/dL | | | + + + + + + | Estimated | 17.0 (A) | 60.0 - 140.0 | | | | GFR | | mL/min/1.73m2 | | | + + + + + + | BUN/Creatin | 11.3 | 6.0 - 28.6 | | | | ine Ratio | | | | | + + + + + + | Albumin | 1.8 (A) | 3.5 - 5.0 g/dL | | | + + + + + + | Calcium | 7.3 (A) | 8.5 - 10.3 | | | + + + + + + | PHOSPHORUS | 5.5 (A) | 2.5 - 5.0 | | | + + + + + + + + | Specimen | + + | Blood | + + documented in this encounter Visit Diagnoses Not on filedocumented in this encounter"
--- OUTSIDE RECORDS SUMMARY | ~2020-03-21 | XMS | Encounter Summary ---
Demographics + + + | Address | [address] | | | [place] [address] | + + + | Home Phone | | + + + | Preferred Language | Unknown | + + + | Marital Status | Single | + + + | Religion Affiliation | NON | + + + [...] Samantha Ramos | ECON | [address] # | | | | | [place] | | | | | [address] | | + + + + + Care Team Providers + +------+ + | Care Electrical & Instrumentation Supervisor Name | Role | Phone | [...] Operative Report | | 2006 | | [facility] [address] | | | | | Transcribed | [address] | | | | | | Mailcode: Center | | | | | | for Health and | | | | | | Healing, Building 2 | | | | | | [facility] [place] | | | | | | [address] | | | | | | [phone] | | | +--------+ + + + [...] | 10/13/2006 12:00 AM PST | | [id number] | | [id number] [place] [address] [id number] | | | | Date: 10/13/2006 | | | | Attending Surgeon: Neri Mcgarry M.D., Ph.D. | | | | Commodity Loan Clerk(s): Stefano Clements M.D. | | | | [...] Mcgarry M.D., Ph.D. | | | | [facility] / | | [id number] / [id number] / [id number] / [id number] | | | | | | | | | | | | Electronically signed by Neri Mcgarry 10-24-2006 04:46:26 PM | | | | | + + documented in this encounter Visit Diagnoses Not on filedocumented in this encounter"
--- OUTSIDE RECORDS SUMMARY | ~2020-03-21 | XMS | Encounter Summary ---
Demographics + + + | Address | [address] | | | [place] [address] | + + + | Home Phone [...] Samantha Ramos | ECON | [address] # | | | | | [place] | | | | | [address] | | + + + + + Care Team Providers + +------+ + | Care Air Force Pilot Name | Role | Phone | + [...] [address] | | | | | [place], [place] | [place], [place] | | | | | [address] | [address] | | | | | [phone] | [phone] | | | | | | | [...] | | | SERUM | performed by [facility] | | | | [facility] | | | | | [facility]. | | | | + + + + + + + + | Specimen | + + | | + + + + + + + | Performing | Address | City/State/Zipcode | Phone Number | | Organization | | | | + + + + + | [facility] | [address] | [place] [address] | | | LABORATORY | | | [...] | + + + + + | [facility] | [address] | [place] [address] | | | LABORATORY | | | | + + + + + documented in this encounter Visit Diagnoses Not on filedocumented in this encounter"
--- OUTSIDE RECORDS SUMMARY | ~2020-03-21 | XMS | Encounter Summary ---
Demographics + + + | Address | [address] | | | [place] [address] | + + + | Home Phone [...] + + + | Author | [facility] | + + + | Organization | [facility] | + + + | Address | Unknown | + + + | Phone | Unavailable | + + + Support + + + + + | Name | Relationship | Address | Phone | + + + + + | Samantha Ramos | ECON | [address] # | | | | | [place] | | | | | [address] | | + + + + + Care Team Providers + +------+ + | Care Product Safety Professional Name | Role | Phone | + [...] | | | | | diabetes | [place], [place] | floor | | | | | mellitus | [address] | [place], [place] | | | | | ([facility]) | Phone: | [phone] | | | | | Procedures | [phone] | Phone: | | | | | CONSULT TO | Fax: | [phone] | | | | | GI PROCEDURE | [phone] | Fax: | | | | | UNIT: EGD | | [phone] | + +--------+ + + + + Encounter Details +--------+ + + + + | Date | Type | Department | Care Team | Description | +--------+ + + + + | 08/16/ | In Processing Instructor | Digestive Health | Beth Mondragon, | Diabetic | | 2019 | | Center at [facility] [address] | ANP [address] [facility] | gastroparesis | | | | [address] | [address] | associated with type | | | | Mailcode: Center | [place], [place] | 1 diabetes mellitus | | | | for Health and | [address] | ([facility]) (Primary Dx) | | | | [facility] | [phone] | | | | | [place], [place] | | | | | | [address] | | | | | | [phone] | | | +--------+ + + + [...]
--- OUTSIDE RECORDS SUMMARY | ~2020-03-21 | XMS | Encounter Summary ---
Demographics + + + | Address | [address] | | | [place] [address] | + + + | Home Phone [...] + + + | Author | [facility] | + + + | Organization | [facility] | + + + | Address | Unknown | + + + | Phone | Unavailable | + + + Support + + + + + | Name | Relationship | Address | Phone | + + + + + | Samantha Ramos | ECON | [address] # | | | | | [place] | | | | | [address] | | + + + + + Care Team Providers + +------+ + | Care Motor Equipment Lieutenant Name | Role | Phone | + +------+ + | Erich Yates PA-C | PCP | | + +------+ + Reason for Referral Consultation (Routine) +--------+---------+ + + + + | Status | Reason | Specialty | Diagnoses / | Referred By | Referred To | | | | | Procedures | Contact | Contact | +--------+---------+ + + + + | Closed | Other | Hematology & | Diagnoses | Rufino, | Rodney, | | | | Oncology | Anemia, | Lashawn Tan, | MD Nabeel | | | | | unspecified | [facility] [address] | [address] | | | | | type | DIAMANTE Hanna | Wendy | | | | | Procedures | [facility] | [place], [place] | | | | | CONSULT TO | Rd | [address] | | | | | HEMATOLOGY / | [place], [place] | Phone: | | | | | ONCOLOGY | [address] | [phone] | | | | | MS NEW | Phone: | Fax: | | | | | PATIENT | [phone] | [phone] | | | | | LEVEL V MS | Fax: | | | | | | EST PATIENT | [phone] | | | | | | LEVEL V | | | +--------+---------+ + + + + PROC - Dept/Practice [...] | Diabetic | Lashawn Tan, | [facility] [address] | | | | | gastroparesi | PA-C [address] | | | | | s (HCC) | [address] | Mailcode: | | | | | Abdominal | [facility] | [address] | | | | | pain, | Rd | for Health | | | | | chronic, | [place], [place] | and Healing, | | | | | epigastric | [address] | [address] | | | | | Chronic | Phone: | [place], [place] | | | | | diarrhea | [phone] | [address] | | | | | Severe | Fax: | Phone: | | | | | protein-judy | [phone] | [phone] | | | | | danyel | | Fax: | | | | | malnutrition | | [phone] | | | | | (HCC) | [...] | | 2019 | | Center at [facility] [address] | PA-C [address] | (Local provider, | | | | Zee Nguyen | [address] | local labs) | | | | Mailcode: Center | [place], [place] | | | | | [facility] and | [address] | | | | | [place] [address] | [phone] | | | | | [place], [place] | | | | | | [address] | | | | | | [phone] | | | +--------+ + + + [...]
--- OUTSIDE RECORDS SUMMARY | ~2020-03-21 | XMS | Encounter Summary ---
Demographics + + + | Address | [address] | | | [place] [address] | + + + | Home Phone | | + + + | Preferred Language | Unknown | + + + | Marital Status | Single | + + + | Evangelical Affiliation | Unknown | + + + | Race | Unknown | + + + | Ethnic Group | Unknown | + + + Author + + + | Author | [facility] | | | and [place] | + + + | Organization | [facility] | | | [...] [place] | | | | | [address] | | + + + + + Care Team Providers + +------+ + | Care Supervisor Shipping Room Name | Role | Phone | + [...] + + | 09/19/ | Hospital | [facility] | Tc Mora | Right ureteral | | 2018 - | Encounter | MED [facility] SUR[facility] | MD [address] | stone; Acute kidney | | | | [address] | [address] [place] | injury (HCC); Flank | | 09/20/ | | [place] [address] | [address] | pain; | | 2017 | | [phone] | | Hydronephrosis, | | | | [...] might be differ ent from the original. [facility] Urology Progress Note Brooks Marquez is [...] have not thoroughly proofread this note, and passenger rate clerk errors are very likely to occur. CC: LEMUEL Anand documented in this encounter Consult Notes Allen Barnes MD - 09/20/2018 6:39 PM PSTFormatting of this note might be different fr om the original. [place] HOSPITALIST CONSULT NOTE Patient: Brooks Marquez : 1990: Age: 27 y.o. MedRec: [id number] Admission date: 09/19/2018 Hospital day # : [...] STENT PLACEMENT; Surgeon: Tc Mora MD; Location: [facility] OR FAMILY HISTORY: family history includes [...] ravi rs as needed for Pain. Historical Provider, insulin glargine (LANTUS SOLOSTAR) 100 units/mL injection (pen) Inject 40 Units under the skin nightly. Historical ProviderMD insulin lispro (HUMALOG KWIKPEN) 100 units/mL injection (pen) Inject under the skin 3 ranjit es daily (before meals). Historical Provider, metoprolol tartrate (LOPRESSOR) 50 mg tablet Take 50 mg by mouth 2 times daily. Historic al ProviderMD ondansetron (ZOFRAN ODT) 8 mg disintegrating tablet Take 8 mg by mouth every 8 hours as ne eded for Nausea. Historical Provider, phytonadione (PHYTONADIONE) 100 MCG TABS Take 100 [...] pH, Urine 6.0 5.0 - 8.0 Specific [place] 1.012 1.001 - 1.030 Protein, Urine 100 [...] food missing myself. Patient was explained the terminal make up operator disability or even if the elevated potassium levels worsens. This was explained multiple times. Patient understoo d the risks and signed an AMA form. Obstructive nephrolithiasis s/p R URS, LL and stent on 09/19/18 As per above DM1 Patient left AMA I reviewed and summarized old records I reviewed imaging Electronically signed by: Allen Barnes MD 09/20/2018 18:39 [facility] Portions of this chart may have been created with eÇift voice recognition software. Occasi onal wrong-word or [...] Marquez 27 y.o. 1990 Med. Record Number: [id number] Date of admission: 09/19/2018 Date of Operation/Procedure: 09/19/2018 Preoperative Diagnosis: Ureteral stone Postoperative Diagnosis: same Surgeon: Tc Mora MD Claim Specialist(s): none Anesthesia Provider(s): Anesthesiologist: Tereso Dillon MD [...] fluoroscopic guidance. We then used a 10 Guinean dual-lumen catheter to place a second guidewire [...] guidance.No significant lacerations were seen. A 6 Guinean variable length stent was then placed over [...] Electronically Signed by: Tc Mora, 09/19/2018 22:00 [facility] documented in this encounter Plan of Treatment +--------+---------+ + + + | Date | Type | Specialty | Care Team | Description | +--------+---------+ + + + | 05/07/ | Office | Nephrology | Winston Whitman MD | | | 2020 | Visit | | [address] [facility] | | | | | | [address] [place] | | | | | | [address] | | | | | | | [...] [address] | [place] | [phone] | | [facility] | | [address] | | | - LABORATORY | | [...] | | GLOMERULAR FILTRATION | mL/min/1.73m2 | [facility] | | | [place]AN | RATE,ESTIMATED | | MEDICAL | | | | mL/min/1.92j3Rxug than | | CENTER - | | [...] | | | | | mg/dL | [facility] | | | | | [...] [address] | [place] | [phone] | | [facility] | | [address] | | | - LABORATORY | | [...] + | [facility] [facility] | [address] | [place] | [phone] | | [facility] | | [address] | | | - LABORATORY | | [...] into the clinical context for interpretation. | [facility] | | | - LABORATORY | + + + + + + + + | Performing | Address | City/State/Zipcode | Phone Number | | Organization | | | | + + + + + | [facility] | [address] | [place] | [phone] | | [facility] | | [address] | | | - LABORATORY | | [...] [address] | [place] | [phone] | | [facility] | | [address] | | | - LABORATORY | | [...] - 1.030 | [facility] | | | [place], | | | [facility] | | [...] + | [facility] | [address] | [place] | [phone] | | [facility] | | [address] | | | - LABORATORY | | [...] [address] | [place] | [phone] | | [facility] | | [address] | | | - LABORATORY | | [...] [address] | [place] | [phone] | | [facility] | | [address] | | | - LABORATORY | | [...] ST. | [address] | [place] | [phone] | | [facility] | | [address] | | | - LABORATORY | | [...] [address] | [place] | [phone] | | [facility] | | [address] | | | - LABORATORY | | [...] not | 38 (L)Comment: | >=60 | [facility] | | | | GLOMERULAR FILTRATION | mL/min/1.73m2 | [facility] | | | [place] | RATE,ESTIMATED | | MEDICAL | | | | mL/min/1.89k3Raga than | | CENTER - | | [...] [address] | [place] | [phone] | | [facility] | | [address] | | | - LABORATORY | | [...] [address] | [place] | [phone] | | [facility] | | [address] | | | - LABORATORY | | [...] MD | | | | | | ([id number]) on 09/21/2018 | | | | | [...] + | [facility] | [address] | [place] | [phone] | | [facility] | | [address] | | | - LABORATORY | | [...] [facility] | | | | | | . [facility] | | | | [...] | | | | WBC's | [facility] | | | | [...] [address] | [place] | [phone] | | [facility] | | [address] | | | - LABORATORY | | [...] | | | | | mg/dL | [facility] | | | | | | MEDICAL | | | | | | CENTER - | | | | | | LABORATORY | | + + + + + + | eGFR if not | 42 (L)Comment: | >=60 | [facility] | | | | GLOMERULAR FILTRATION | mL/min/1.73m2 | [facility] | | | [place] | RATE,ESTIMATED | | MEDICAL | | | | mL/min/1.60v0Ebos than | | CENTER - | | [...] 8.2 (L) | 8.3 - 10.5 | [facility] | | | | | mg/dL | [facility] | | | | | [...] [address] | [place] | [phone] | | [facility] | | [address] | | | - LABORATORY | | [...] + | [facility] | [address] | [place] | [phone] | | [facility] | | [address] | | | - LABORATORY | | [...] | + +---------+ + + [place] Ailyn-Chirag Statjo-ann No Charge (09/19/2018 10:11 PM PST) + [...] 1.93 (H) | 0.60 - 1.30 | [facility] | | | | | mg/dL | [facility] | | | | | | MEDICAL | | | | | | CENTER - | | | | | | LABORATORY | | + + + + + + | eGFR if not | 42 (L)Comment: | >=60 | [facility] | | | | GLOMERULAR FILTRATION | mL/min/1.73m2 | [facility] | | | [place] | RATE,ESTIMATED | | MEDICAL | | | | mL/min/1.54x3Mkmf than | | CENTER - | | [...] [address] | [place] | [phone] | | [facility] | | [address] | | | - LABORATORY | | [...] | + + + + + | [facility] | [address] | [place] | [phone] | | [facility] | | [address] | | | - LABORATORY | | [...] [facility] | | | | | | at:[phone]. | | | | + + + [...] test was developed and | | LAB [facility]HEL[facility] | | | | its performance | | - [facility] | | | | characteristicsdetermine | | | | | | d by [facility]. It has not | | | | [...] | Performed at: 01 - Michelle Price [address] [place] [address], | REFERENCE LAB | | [place] [id number] Electrical Prospecting Observer: Sarabjit Love MD, Phone: | [facility] | | [phone] | | + + + + + + + + | Performing | Address | City/State/Zipcode | Phone Number | | Organization | | | | + + + + + | REFERENCE LAB | [address] | [place], [place] | [phone] | | [facility] | [facility] | [address] | | + + + + + POC Glucose (09/19/2018 8:46 PM PST) + +-------+ + + + | Component | Value | Ref Range | Performed | Pathologist | | | | | At | Signature | + +-------+ + + + | Glucose, | 108 | 70 - 109 mg/dL | [facility] [...] [address] | [place] | [phone] | | [facility] | | [address] | | | - LABORATORY | | [...] | Hyperkalemia Hyperpotassemia | + + | Diabetes (HCC) | + + | Hypertension Unspecified [...] | | | | | | | [facility] 09/19/18 at 1945, For 1 dose, | | | | | | | Give patient education | | | | | | | informationNanda Butcher prior to use., | | | | [...] | | | | | | | 4380-8317 Use NIGHT DOSE for | | | | | | | doses scheduled: HS, 3AM, | | | | | | | Nighttime 9907-5513, | | | | | | + [...] PM PST | | | | | Tue09/20/18 at 1300 | | | | | [...]
--- OUTSIDE RECORDS SUMMARY | ~2020-03-21 | XMS | Encounter Summary ---
Demographics + + + | Address | [address] | | | [place] [address] | + + + | Home Phone [...] Author + + + | Author | [facility] | + + + | Organization | [facility] | + + + | Address | Unknown | + + + | Phone | Unavailable | + + + Support + + + + + | Name | Relationship | Address | Phone | + + + + + | Samantha Ramos | ECON | [address] # | | | | | [place] | | | | | [address] | | + + + + + Care Team Providers + +------+ + | Care Rug Cleaner Hand Name | Role | Phone | + [...] + | 10/09/ | Documentati | [facility]O [facility]LERU at [facility] | Lab, Gi Procedure | Medical Records | | 2020 | on | [facility] [address] | | Review | | | | [address] Mailcode: | | | | | | [facility] | | | | | | Health and Healing, | | | | | | Building [address] | | | | | | [place], [place] | | | | | | [address] | | | | | | [phone] | | | +--------+ + + + [...]
--- OUTSIDE RECORDS SUMMARY | ~2020-03-21 | XMS | Encounter Summary ---
Demographics + + + | Address | [address] | | | [place] [address] | + + + | Home Phone [...] | Samantha Ramos | ECON | [address] | | | | | [place] | | | | | [address] | | + + + + + Care Team Providers + +------+ + | Care Traffic Agent Name | Role | Phone | + [...] | | Endocrinology at | MD [address] [facility] | | | | | [place] | [address] | | | | | [facility] | [place], [place] | | | | | [address] | [address] | | | | | [place] | [phone] | | | | | [place], [place] | | | | | | [address] | | | | | | [phone] | | | +--------+--------+ + + + [...]
--- OUTSIDE RECORDS SUMMARY | ~2020-03-21 | XMS | Encounter Summary ---
Demographics + + + | Address | [address] | | | [place] [address] | + + + | Home Phone [...] | Samantha Ramos | ECON | [address] | | | | | [place] | | | | | [address] | | + + + + + Care Team Providers + +------+ + | Care Salad Bar Clerk Name | Role | Phone | [...] [facility] | [place] [address] | | | | | [address] | | | | | | [place] | | | | | | [place], [place] | | | | | | [address] | | | | | | [phone] | | | +--------+ + + + [...]
--- OUTSIDE RECORDS SUMMARY | ~2020-03-21 | XMS | Encounter Summary ---
Demographics + + + | Address | [address] | | | [place] [address] | + + + | Home Phone | | + + + | Preferred Language | Unknown | + + + | Marital Status | Single | + + + | Taoism Affiliation | Unknown | + + + | Race | Unknown | + + + | Ethnic Group | Unknown | + + + Author + + + | Author | [facility] | | | and [place] | + + + | Organization | [facility] | | [...] [place] | | | | | [address] | | + + + + + [...] + | 02/18/ | Orders Only | [facility] [place] | Roxie Murrell | CKD (chronic kidney | | 2020 | | NEPHROLOGY [address] | M, DO [address] | disease), stage III | | | | [address] | [address] [place] | (HCC) (Primary Dx) | | | | [place], [place] | [place] [address] | | | | | [address] | [phone] | | | | | [phone] | | | +--------+ + + + [...] + documented as of this encounter Progress Ning Thompson RN - 02/19/2020 10:37 AM PDTLabs for upcoming nephrology appointment sent to: [facility] One time lab follow up. Sandra patient. Electronically signed by Ning Guerrero RN at 01/25 10:39 AM PDTdocumented in this encounter Plan of Treatment +--------+---------+ + + + | Date | Type | Specialty | Care Team | Description | +--------+---------+ + + + | 05/07/ | Office | Nephrology | Winston Whitman MD | | | 2019 | Visit | | [address] [facility] [address] | | | | | | [address] [place] | | | | | | [address] | | | | | | | | +--------+---------+ + + + + +------+--------+ + + | Name | Type | Priori | Associated Diagnoses | Order Schedule | | | | ty | | | + +------+--------+ + + | CBC with | Lab | Routin | CKD (chronic | 1 Occurrences | | Differential | | e | kidney disease), | starting 02/19/2020 | | | | | stage III (HCC) | until 02/18/2021 | + +------+--------+ + + | Renal Function Panel | Lab | Routin | CKD (chronic | 1 Occurrences | | | | e | kidney disease), | starting 02/19/2020 | | | | | stage III (HCC) | until 02/18/2021 | + +------+--------+ + + documented as of this encounter Visit Diagnoses + + | Diagnosis | + + | CKD (chronic kidney disease), stage III (HCC) - Primary Chronic kidney disease, Stage | | III (moderate) | + + documented in this encounter"
--- OUTSIDE RECORDS SUMMARY | ~2020-03-21 | XMS | Encounter Summary ---
Demographics + + + | Address | [address] | | | [place] [address] | + + + | Home Phone [...] | Samantha Ramos | ECON | [address] | | | | | [place], [place] | | | | | [address] | | + + + + + Care Team Providers + +------+ + | Care Gathering Machine Feeder Name | Role | Phone | + [...]
--- OUTSIDE RECORDS SUMMARY | ~2020-03-21 | XMS | Encounter Summary ---
Demographics + + + | Address | [address] | | | [place] [address] | + + + | Home Phone [...] [place] | | | | | [address] | | + + + + + Care Team Providers + +------+ + | Care Car Park Attendant Name | Role | Phone | [...] | Only | [facility] [address] | HOG COUNTER [address] | | | | | [address] | [address] | | | | | Mailcode: PV430 | [place] [address] | | | | | [facility] | [phone] | | | | | [place], [place] | | | | | | [address] | | | | | | [phone] | | | +--------+ + + + [...]
--- OUTSIDE RECORDS SUMMARY | ~2020-03-21 | XMS | Encounter Summary ---
Demographics + + + | Address | [address] | | | [place] [address] | + + + | Home Phone | | + + + | Preferred Language | Unknown | + + + | Marital Status | Single | + + + | Scientologist Affiliation | Unknown | + + + | Race | Unknown | + + + | Ethnic Group | Unknown | + + + Author + + + | Author | [facility] | | | and [place] | + + + | Organization | [facility] | | | [...] [place] | | | | | [address] | | + + + + + Care Team Providers + +------+ + | Care Watch Commander Name | Role | Phone | + [...] + + | 09/19/ | Surgery | [facility] | Tc Mora | CYSTOSCOPY W/ | | 2017 | | MED CTR OR INTRA OP | MD [address] | URETEROSCOPY W/ | | | | [address] | [place] | LASER LITHOTRIPSY | | | | [place] | [address] | WITH STENT PLACEMENT | | | | [address] | | | | | | [phone] | | | +--------+---------+ + + + [...] might be differ ent from the original. [facility] Urology Progress Note Brooks Marquez is [...] have not thoroughly proofread this note, and federal judge errors are very likely to occur. CC: LEMUEL Anand documented in this encounter Consult Notes Allen Barnes MD - 09/20/2018 6:39 PM PSTFormatting of this note might be different fr om the original. [place] HOSPITALIST CONSULT NOTE Patient: Brooks Marquez : 1990: Age: 27 y.o. MedRec: [id number] Admission date: 09/19/2018 Hospital day # : [...] STENT PLACEMENT; Surgeon: Tc Mora MD; Location: [facility] MAIN OR FAMILY HISTORY: family history [...] pH, Urine 6.0 5.0 - 8.0 Specific [place] 1.012 1.001 - 1.030 Protein, Urine 100 [...] food missing myself. Patient was explained the medical terminologist disability or even if the elevated potassium levels worsens. This was explained multiple times. Patient understoo d the risks and signed an AMA form. Obstructive nephrolithiasis s/p R URS, LL and stent on 09/19/18 As per above DM1 Patient left AMA I reviewed and summarized old records I reviewed imaging Electronically signed by: Allen Barnes MD 09/20/2018 18:39 [facility] Portions of this chart may have been created with [employer] voice recognition software. Occasi onal wrong-word or [...] Marquez 27 y.o. 1990 Med. Record Number: [id number] Date of admission: 09/19/2018 Date of Operation/Procedure: 09/19/2018 Preoperative Diagnosis: Ureteral stone Postoperative Diagnosis: same Surgeon: Tc Mora MD Senior Portfolio Analyst(s): none Anesthesia Provider(s): Anesthesiologist: Tereso Dillon MD [...] fluoroscopic guidance. We then used a 10 Chinese dual-lumen catheter to place a second guidewire [...] guidance.No significant lacerations were seen. A 6 Chinese variable length stent was then placed over [...] Signed by: Tc Mora, 09/19/2018 22:00 [facility] documented in this encounter Plan of Treatment +--------+---------+ + + + | Date | Type | Specialty | Care Team | Description | +--------+---------+ + + + | 05/07/ | Office | Nephrology | Winstno Whitman MD | | | 2019 | Visit | | [address] | | | | | | [address] [place] | | | | | | [address] | | | | | | | [...] [address] | [place] | [phone] | | [facility] | | [address] | | | - LABORATORY | | [...] | mL/min/1.73m2 | CURLY | | | BAHAMIAN | RATE,ESTIMATED | | MEDICAL | | | | mL/min/1.67n0Cohj than | | CENTER - | | [...] [address] | [place] | [phone] | | [facility] | | [address] | | | - LABORATORY | | [...] + | [address] | [address] | [place] | [phone] | | [facility] | | [address] | | | - LABORATORY | | [...] [address] | [place] | [phone] | | [facility] | | [address] | | | - LABORATORY | | [...] [address] | [place] | [phone] | | [facility] | | [address] | | | - LABORATORY | | [...] - 1.030 | [facility] | | | [place], | | | [facility] | | [...] + | [address] | [address] | [place] | [phone] | | [facility] | | [address] | | | - LABORATORY | | [...] [address] | [place] | [phone] | | [facility] | | [address] | | | - LABORATORY | | [...] ST. | [address] | [place] | [phone] | | [facility] | | [address] | | | - LABORATORY | | [...] | | POC | | | [facility] | | | | | | MEDICAL [...] [address] | [place] | [phone] | | [facility] | | [address] | | | - LABORATORY | | [...] | | | POC | | | [facility] | | | | | | [...] + | [facility] [facility] | [address] | [place] | [phone] | | [facility] | | [address] | | | - LABORATORY | | [...] mL/min/1.73m2 | [facility] | | | [place]IAN | RATE,ESTIMATED | | MEDICAL | | | | mL/min/1.83v1Qdng than | | CENTER - | | [...] [address] | [place] | [phone] | | [facility] | | [address] | | | - LABORATORY | | [...] [address] | [place] | [phone] | | [facility] | | [address] | | | - LABORATORY | | [...] MD | | | | | | ([id number]) on 09/21/2018 | | | | | [...] [address] | [place] | [phone] | | [facility] | | [address] | | | - LABORATORY | | [...] ST. | [address] | [place], [place] | [phone] | | [facility] | | [address] | | | - LABORATORY | | [...] | mL/min/1.73m2 | CURLY | | | B[place]AMIAN | RATE,ESTIMATED | | MEDICAL | | | | mL/min/1.61n6Uuek than | | CENTER - | | [...] | ine Ratio | | | STNanda [facility]YL | | | | | | [...] [address] | [place] | [phone] | | [facility] | | [address] | | | - LABORATORY | | [...] + | [address] | [address] | [place] | [phone] | | [facility] | | [address] | | | - LABORATORY | | [...] not | 42 (L)Comment: | >=60 | [facility] | | | | GLOMERULAR FILTRATION | mL/min/1.73m2 | CURLY | | | [place]IAN | RATE,ESTIMATED | | MEDICAL | | | | mL/min/1.53x8Wtyz than | | CENTER - | | [...] | ine Ratio | | | [facility] | | | | | | MEDICAL [...] [address] | [place] | [phone] | | [facility] | | [address] | | | - LABORATORY | | [...] + | [address] | [address] | [place] | [phone] | | [facility] | | [address] | | | - LABORATORY | | [...] LabEmelia | | | | | | at:[phone]. | | | | + + + [...] | REFERENCE LAB | | LADAN Price [id number] Billing Spec: Sarabjit Love MD, Phone: | MICHELLE NORTON | | [phone] | | + + + + + + + + | Performing | Address | City/State/Zipcode | Phone Number | | Organization | | | | + + + + + | REFERENCE LAB | [address] | [place], [place] | [phone] | | [facility] | [place] | [address] | | + + + + + [...] [address] | [place] | [phone] | | [facility] | | [address] | | | - LABORATORY | | [...] | | | | | | | 4837-0909 Use NIGHT DOSE for | | | | | | | doses scheduled: HS, 3AM, | | | | | | | Nighttime 6712-2042, | | | | | | + [...]
--- OUTSIDE RECORDS SUMMARY | ~2020-03-21 | XMS | Encounter Summary ---
Demographics + + + | Address | [address] | | | [place] [address] | + + + | Home Phone [...] Samantha Ramos | ECON | [address] # | | | | | [place] | | | | | [address] | | + + + + + Care Team Providers + +------+ + | Care Airport Representative Name | Role | Phone | [...] Operative Report | | 2006 | | [place] at [facility] [address] | | | | | Transcribed | [address] | | | | | | Mailcode: Center | | | | | | for Health and | | | | | | Healing, Building 2 | | | | | | [facility] [place] | | | | | | [address] | | | | | | [phone] | | | +--------+ + + + [...] | 10/13/2006 12:00 AM PST | | [id number] | | [id number] [place] [id number] | | | | Date: 10/13/2006 | | | | Attending Surgeon: Neri Mcgarry M.D., Ph.D. | | | | Senior Packaging Engineer(s): Stefano Clements M.D. | | | | [...] Mcgarry M.D., Ph.D. | | | | [facility] / | | [id number] / [id number] / 26776 / 71173 | | | | | | | | | | | | Electronically signed by Neri Mcgarry 10-24-2006 04:46:26 PM | | | | | + + documented in this encounter Visit Diagnoses Not on filedocumented in this encounter"
--- OUTSIDE RECORDS SUMMARY | ~2020-03-21 | XMS | Encounter Summary ---
Demographics + + + | Address | [address] | | | [place] [address] | + + + | Home Phone [...] Samantha Ramos | ECON | [address] # | | | | | [place] | | | | | [address] | | + + + + + Care Team Providers + +------+ + | Care Wiring Inspector Name | Role | Phone | [...] | 2019 | | Center at [facility] 3485 | PA-C [address] [facility] | results | | | | [address] | [address] | | | | | Mailcode: Center | [place], [place] | | | | | [facility] and | [address] | | | | | [facility], [facility] 2 | [phone] | | | | | [place], [place] | | | | | | [address] | | | | | | [phone] | | | +--------+ + + + [...]
--- OUTSIDE RECORDS SUMMARY | ~2020-03-21 | XMS | Encounter Summary ---
Demographics + + + | Address | [address] | | | [place] [address] | + + + | Home Phone [...] Samantha Ramos | ECON | [address] # | | | | | [place] | | | | | [address] | | + + + + + Care Team Providers + +------+ + | Care Kettle Firer Name | Role | Phone | + [...] | | | | | | | [place] for | | | | | | | Health and | | | | | | | Healing, | | | | | | | Building [address] | | | | | | | [place], [place] | | | | | | | [address] | | | | | | | Phone: | | | | | | | [phone] | | | | | | | Fax: | | | | | | | [phone] | + +--------+ + + + + Encounter Details +--------+ + + + + | Date | Type | Department | Care Team | Description | +--------+ + + + + | 01/24/ | Telephone-S | Digestive Health | Beth Mondragon, | Follow-up visit | | 2020 | cheduled | Center at [facility] [address]85 | ANP [address] [facility] | | | | | [address] | [address] | | | | | Mailcode: [place] | [place], [place] | | | | | [facility] and | [address] | | | | | [facility] | [phone] | | | | | [place], [place] | | | | | | [address] | | | | | | [phone] | | | +--------+ + + + [...] 07/2019 PDMP review reveals pt still taking Sarah 10 mg tabs, rx #112/28 days 1:33 pm: called [phone] and left VM with clinic phone number. 1:38 pm: called [phone] and left VM w/ phone number. 1:41 pm received message from manager front office that patient wished to cancel appointment today 2/ 2 illness. It will be rescheduled at his convenience. IDRIS Camilo Foregut/ [facility] Division of GI and General Surgery documented in this encounter Plan of Treatment Not on filedocumented as of this encounter Visit Diagnoses + + | Diagnosis | + + | Diabetic gastroparesis associated with type 1 diabetes mellitus (HCC) - Primary | + + documented in this encounter"
--- OUTSIDE RECORDS SUMMARY | ~2020-03-21 | XMS | Encounter Summary ---
Demographics + + + | Address | [address] | | | [place] [address] | + + + | Home Phone [...] Samantha Ramos | ECON | [address] # | | | | | [place] | | | | | [address] | | + + + + + Care Team Providers + +------+ + | Care Internal Investigator Name | Role | Phone | + [...] | | | | unspecified | [address] | [address] | | | | | type | DI[address]ANTE [address] | Wendy | | | | | Procedures | [facility] | [place], [place] | | | | | CONSULT TO | Rd | [address] | | | | | HEMATOLOGY / | [place], [place] | Phone: | | | | | ONCOLOGY | [address] | [phone] | | | | | CT NEW | Phone: | Fax: | | | | | PATIENT | [phone] | [phone] | | | | | LEVEL V CT | Fax: | | | | | | EST PATIENT | [phone] | | | | | | LEVEL [...] | Diabetic | Lashawn Tan, | [facility] [address] | | | | | gastroparesi | PA-C [address] | | | | | s (HCC) | [address] | Mailcode: | | | | | Abdominal | [facility] | [address] | | | | | pain, | Rd | for Health | | | | | chronic, | [place], [place] | and Healing, | | | | | epigastric | [address] | Building 2 | | | | | Chronic | Phone: | [place], [place] | | | | | diarrhea | [phone] | [address] | | | | | Severe | Fax: | Phone: | | | | | protein-judy | [phone] | [phone] | | | | | danyel | | Fax: | | | | | malnutrition | | [phone] | | | | | (HCC) | [...] | | 2019 | | Center at [facility] 3485 | PA-C [address] | (Local provider, | | | | [address] | [address] | local labs) | | | | Mailcode: Center | [place], [place] | | | | | [facility] and | [address] | | | | | [place] [address] | [phone] | | | | | [place], [place] | | | | | | [address] | | | | | | [phone] | | | +--------+ + + + [...]
--- OUTSIDE RECORDS SUMMARY | ~2020-03-21 | XMS | Encounter Summary ---
Demographics + + + | Address | [address] | | | [place] [address] | + + + | Home Phone [...] Samantha Ramos | ECON | [address] # | | | | | [place] | | | | | [address] | | + + + + + Care Team Providers + +------+ + | Care Web Applications Programmer Name | Role | Phone | + [...] | (multiple lab | | | | [address] | [address] | results) | | | | Mailcode: Center | [place], [place] | | | | | for Health and | [address] | | | | | [facility], [facility] 2 | [phone] | | | | | [place], [place] | | | | | | [address] | | | | | | [phone] | | | +--------+ + + + [...] - | [address] | [place], [place] | [phone] | | EUN | | | | [...] [address] | [place] | [phone] | | EUN | | | | [...] + + | [facility] - | [address] | [place] | [phone] | | [place] | | | | [...] + + | [facility] - | [address] | [place], [place] | [phone] | | [place] | | | | + + + + + documented in this encounter Visit Diagnoses + + | Diagnosis | + + | Chronic diarrhea Diarrhea | + + documented in this encounter"
--- OUTSIDE RECORDS SUMMARY | ~2020-03-21 | XMS | Encounter Summary ---
Demographics + + + | Address | [address] | | | [place] [address] | + + + | Home Phone [...] + + | Author | [facility] | + + + | Organization | [facility] | + + + | Address | Unknown | + + + | Phone | Unavailable | + + + Support + + + + + | Name | Relationship | Address | Phone | + + + + + | Samantha Ramos | ECON | [address] # | | | | | [place] | | | | | [address] | | + + + + + Care Team Providers + +------+ + | Care Scallop Binder Name | Role | Phone | [...] [address] | | | | | [place], [place] | [place], [place] | | | | | [address] | [address] | | | | | [phone] | [phone] | | | | | | | [...] | [facility]/ | | | | | [facility] | | | | | | [employer]. | | | | + + + + + + + + | Specimen | + + | | + + + + + + + | Performing | Address | City/State/Zipcode | Phone Number | | Organization | | | | + + + + + | [facility] | [address] | [place] [address] | | | LABORATORY | | | [...] [place] | | | | | | [facility]. | | | | + + + + + + + + | Specimen | + + | | + + + + + + + | Performing | Address | City/State/Zipcode | Phone Number | | Organization | | | | + + + + + | [facility] | [address] | [place] [address] | | | LABORATORY | | | | + + + + + documented in this encounter Visit Diagnoses Not on filedocumented in this encounter"
--- OUTSIDE RECORDS SUMMARY | ~2020-03-21 | XMS | Encounter Summary ---
Demographics + + + | Address | [address] | | | [place] [address] | + + + | Home Phone | | + + + | Preferred Language | Unknown | + + + | Marital Status | Single | + + + | Church Affiliation | Unknown | + + + | Race | Unknown | + + + | Ethnic Group | Unknown | + + + Author + + + | Author | [facility] | | | and [place] | + + + | Organization | [facility] | | | [...] [place] | | | | | [address] | | + + + + + Care Team Providers + +------+ + | Care Chain Sales Consultant Name | Role | Phone | + +------+ + | Erich Yates | PCP | | + +------+ + Encounter Details +--------+ + + + + | Date | Type | Department | Care Team | Description | +--------+ + + + + | 05/15/ | Orders Only | [facility] | Conversion | | | 2017 | | [place]PH[place]OLOGY [place] | Transaction, | | | | | [address] | Provider Unknown | | | | | [address] [place], [place] | | | | | | [address] | (Fax) | | | | | [phone] | | | +--------+ + + + [...] 2020 | Visit | | [address] [facility] | | | | | | [address] [place] | | | | | | [address] | | | | | | | [...] - 1.030 | EXTERNAL | | | [place], | | | LAB | | | [...] + + + | Red Blood | 3.7 (A) | 4.3 - 5.7 10 | EXTERNAL | | | Cells | | | LAB | | | Counted | | | | | + + + + + + | Hemoglobin | 11.3 (A) | 13.5 - 18.0 [...]
--- OUTSIDE RECORDS SUMMARY | ~2020-03-21 | XMS | Encounter Summary ---
Demographics + + + | Address | [address] | | | [place] [address] | + + + | Home Phone [...] Samantha Ramos | ECON | [address] # | | | | | [place] | | | | | [address] | | + + + + + Care Team Providers + +------+ + | Care Communications Field Technician Name | Role | Phone | + +------+ + | Erich Yates PA-C | PCP | | + +------+ + Encounter Details +--------+ + + + + | Date | Type | Department | Care Team | Description | +--------+ + + + + | 10/11/ | Transcribe | [facility] | Transcribe | | | 2020 | Orders | [facility] [address] | Encounter, Provider, | | | | | [address] Mailcode: | [address] | | | | | [facility] Center for | [place] [address] | | | | | Health and Healing, | | | | | | Building 2 | | | | | | [place], [place] | | | | | | [address] | | | | | | [phone] | | | +--------+ + + + [...] | | | | ([facility]) | | +------+ +--------+ + + documented as of this encounter Visit Diagnoses + + | Diagnosis | + + | Diabetic gastroparesis associated with type 1 diabetes mellitus (HCC) - Primary | + + documented in this encounter"
--- OUTSIDE RECORDS SUMMARY | ~2020-03-21 | XMS | Clinical Summary ---
Demographics + + + | Address | [address] | | | [place] [address] | + + + | Home Phone [...] Samantha Ramos | ECON | [address] # | | | | | [place], [place] | | | | | [address] | | + + + + + Care Team Providers + +------+ + | Care Chief Petroleum Engineer Name | Role | Phone | + +------+ + | Erich Yates PA-C | PCP | | + +------+ + Source Comments VERITO is fully live on both [facility] and [facility] In[facility] Allergies + + + + + + [...] | | | + +--------+ +--------+-------+---------+--------+ | OIL WELL ENGINEER MEDICAID | OIL WELL ENGINEER | xxxxxxxx | 04/03/20 | | | [...] lucian | | | 1 (Home) | [address] | + +--------+ +--------+ + + Advance [...]
--- OUTSIDE RECORDS SUMMARY | ~2020-03-21 | XMS | Encounter Summary ---
Demographics + + + | Address | [address] | | | [place] [address] | + + + | Home Phone | | + + + | Preferred Language | Unknown | + + + | Marital Status | Single | + + + | Islam Affiliation | Unknown | + + + [...] [place] | | | | | [address] | | + + + + + Care Team Providers + +------+ + | Care Head Silverman Name | Role | Phone | + +------+ + | Erich Yates | PCP | | + +------+ + Encounter Details +--------+ + + + + | Date | Type | Department | Care Team | Description | +--------+ + + + + | 05/15/ | Abstract | [facility] | Divya, | | | 2017 | | GASTROENTEROLOGY | [address] | | | | | [address] [facility] | [place]. | | | | | [address] [place], [place] | [place] [address] | | | | | [address] | | | | | | [phone] | | | +--------+ + + + [...] 2020 | Visit | | [address] [facility] | | | | | | [address] [place] | | | | | | [address] | | | | | | | | +--------+---------+ + + + documented as of this encounter Visit Diagnoses Not on filedocumented in this encounter"
--- OUTSIDE RECORDS SUMMARY | ~2020-03-21 | XMS | Encounter Summary ---
Demographics + + + | Address | [address] | | | [place] [address] | + + + | Home Phone [...] Author + + + | Author | [facility] | + + + | Organization | [facility] | + + + | Address | Unknown | + + + | Phone | Unavailable | + + + Support + + + + + | Name | Relationship | Address | Phone | + + + + + | Samantha Ramos | ECON | [address] # | | | | | [place] | | | | | [address] | | + + + + + Care Team Providers + +------+ + | Care Quartz Miner Name | Role | Phone | + [...] | | | | | [facility] | [place] [address] | | | | | [address] | | | | | | [place] | | | | | | [place], [place] | | | | | | [address] | | | | | | [phone] | | | +--------+ + + + [...]
--- OUTSIDE RECORDS SUMMARY | ~2020-03-21 | XMS | Encounter Summary ---
Demographics + + + | Address | [address] | | | [place] [address] | + + + | Home Phone [...] | Samantha Ramos | ECON | [address] | | | | | [place], [place] | | | | | [address] | | + + + + + Care Team Providers + +------+ + | Care Biophysics Professor Name | Role | Phone | [...] as of this encounter Discharge Summaries Interface, Client Executive In - 04/08/2006 3:[address] [address] [facility] [...] initially presented to the emergency department in [place] with four to five days of flu-like [...] insulin drip. He was transferred to the [facility] Pediatric Intensive Care Unit. HOSPITAL COURSE: [...] diabetes education from the endocrinology team. A inventory analyst also worked closely with the family in educating on the [place] diets. On the day of [...] Lindsey M.D. Tereso Morocho M.D. TC:x11 cc: [id number] signed by Interface, Client Executive In at 04/08/2006 3:07 AM [facility] umented in this encounter Plan of Treatment Not on filedocumented as of this encounter Visit Diagnoses Not on filedocumented in this encounter"
--- OUTSIDE RECORDS SUMMARY | ~2020-03-21 | XMS | Encounter Summary ---
Demographics + + + | Address | [address] | | | [place] [address] | + + + | Home Phone | | + + + | Preferred Language | Unknown | + + + | Marital Status | Single | + + + | Scientology Affiliation | Unknown | + + + | Race | Unknown | + + + | Ethnic Group | Unknown | + + + Author + + + | Author | [facility] | | | and [place] | + + + | Organization | [facility] | | [...] [place] | | | | | [address] | | + + + + + Care Team Providers + +------+ + | Care Sheep Boner Name | Role | Phone | + [...] | | | [address] | [place] [address] | | | | | [place] [address] | | | | | | [phone] | | | +--------+ + + + [...] | Visit | | [address] [facility] | | | | | | [address] [place] | | | | | | [address] | | | | | | | [...]
--- OUTSIDE RECORDS SUMMARY | ~2020-03-21 | XMS | Encounter Summary ---
Demographics + + + | Address | [address] | | | [place] [address] | + + + | Home Phone [...] Samantha Ramos | ECON | [address] | | | | | [place] | | | | | [address] | | + + + + + Care Team Providers + +------+ + | Care Pattern Fitter Name | Role | Phone | [...] | | | | | diabetes | [place], [place] | floor | | | | | mellitus | [address] | | | | | | ([facility]) | Phone: | [address] | | | | | Procedures | [phone] | Phone: | | | | | CONSULT TO | Fax: | [phone] | | | | | GI PROCEDURE | [phone] | Fax: | | | | | UNIT: EGD | | [phone] | + +--------+ + + + + Encounter Details +--------+ + + + + | Date | Type | Department | Care Team | Description | +--------+ + + + + | 08/16/ | Glassware Finisher | Digestive Health | Beth Mondragon, | Diabetic | | 2019 | | [facility] [address] | ANP [address] [facility] | gastroparesis | | | | [address] | [address] | associated with type | | | | Mailcode: Center | [place], [place] | 1 diabetes mellitus | | | | for Health and | [address] | ([facility]) (Primary Dx) | | | | [facility] 2 | [phone] | | | | | | | | | | | [address] | | | | | | [phone] | | | +--------+ + + + [...]
--- OUTSIDE RECORDS SUMMARY | ~2020-03-21 | XMS | Encounter Summary ---
Demographics + + + | Address | [address] | | | [place] [address] | + + + | Home Phone [...] Samantha Ramos | ECON | [address] | | | | | [place] | | | | | [address] | | + + + + + Care Team Providers + +------+ + | Care [address] Freight Name | Role | Phone | + [...] | | | type) | CLINIC | [facility] | | | | | diabetes | [address] | Rd | | | | | mellitus | BUILDING | [place], [place] | | | | | without | [address] | [address] | | | | | mention of | [address] | Phone: | | | | | complication | [place], | [phone] | | | | | , not stated | [place] [address] | Fax: | | | | | as | Phone: | [phone] | | | | | uncontrolled | [phone] | | | | | | | Fax: | | | | | | | [phone] | | +--------+ + + + + [...] (Primary Dx) | | | | Center [facility] | [facility] | | | | | [address] | [place], [place] | | | | | [address] | [address] | | | | | Physician's | [phone] | | | | | Pavilion[address] | | | | | | [place], [place] | | | | | | [address] | | | | | | [phone] | | | +--------+---------+ + + + [...] week a nd fax to me on [phone]- or call/email earlier if blood sugars running consistently low . My email address is [email or web address]. Take 1 unit insulin [...] 1 week and fax to me on [phone]- or call/email earlier if blood sarabia gars running consistently low. My email address is [email or web address] 2. Take 1 unit insulin [...] | + + +--------+ + + | [place] COLLECTION | Procedures | Routin | DM w/o | Ordered: 11/01/2007 | | CAPILLARY BLOOD | | e | Complication Type I | | | SPECIMEN | | | | | + + +--------+ + + | [place] GLYCATED | Lab | Routin | DM [...] VERDE | [address] | [place], [place] | | | [facility] CARE | [address] | [address] | | | TESTS | | | | + + + + + | [facility] | [address] | [place], [place] | | | TESTS | [address] | [address] | | + + + + + documented in this encounter Visit Diagnoses + + | Diagnosis | + + | Type I (juvenile type) diabetes mellitus without mention of complication, not stated | | as uncontrolled - Primary | + + documented in this encounter
--- OUTSIDE RECORDS SUMMARY | ~2020-03-21 | XMS | Encounter Summary ---
Demographics + + + | Address | [address] | | | [place] [address] | + + + | Home Phone | | + + + | Preferred Language | Unknown | + + + | Marital Status | Single | + + + | Yazidi Affiliation | NON | + + + [...] | Samantha Ramos | ECON | [address] # | | | | | [place] | | | | | [address] | | + + + + + Care Team Providers + +------+ + | Care Cycle Analyst Name | Role | Phone | [...] | | [address], [address] floor | | ([facility]) | | | | [place], [place] | | | | | | [address] | | | | | | [phone] | | | +--------+------+ + + + [...] | | | LABORATORY | | | [facility] | | | SERVICES, | | | [...] | + + + + + | [facility] | [address] | [place] [address] | | | SERVICES, ZOEY | ZENA [...]
--- OUTSIDE RECORDS SUMMARY | ~2020-03-21 | XMS | Encounter Summary ---
Demographics + + + | Address | [address] | | | [place] [address] | + + + | Home Phone [...] Author + + + | Author | [facility] | + + + | Organization | [facility] | + + + | Address | Unknown | + + + | Phone | Unavailable | + + + Support + + + + + | Name | Relationship | Address | Phone | + + + + + | Samantha Ramos | ECON | [address] # | | | | | [place] | | | | | [address] | | + + + + + Care Team Providers + +------+ + | Care Buffing And Sueding Machine Operator Name | Role | Phone [...] | Only | [facility] [address] | [facility] [employer] [address] | | | | | [address] | [address] | | | | | Mailcode: [address] | [place] [address] | | | | | Physician's Pavilion | [phone] | | | | | [place], [place] | | | | | | [address] | | | | | | [phone] | | | +--------+ + + + [...]
--- OUTSIDE RECORDS SUMMARY | ~2020-03-21 | XMS | Encounter Summary ---
Demographics + + + | Address | [address] | | | [place] [address] | + + + | Home Phone [...] Samantha Ramos | ECON | [address] # | | | | | [place] | | | | | [address] | | + + + + + Care Team Providers + +------+ + | Care Ux Research Associate Name | Role | Phone | [...] | | | with type 1 | [address] | 140 | | | | | diabetes | Phone: | [place], [place] | | | | | mellitus | [phone] | [address] | | | | | ([facility]) Type | Fax: | Phone: | | | | | 1 diabetes | [phone] | [phone] | | | | | mellitus | | Fax: | | | | | with | | [phone] | | | | | hyperglycemi | | | | | | | a ([facility]) | | | | | | | [...] | | | | hyperglycemi | [facility], [place] | PPV05 | | | | | a ([facility]) | [address] | Physician's | | | | | Procedures | Phone: | Zeniachadwick Amarilis | | | | | CONSULT TO | [phone] | 140 | | | | | ADULT | Fax: | [place], [place] | | | | | DIABETES - | [phone] | [address] | | | | | EDUCATION | | Phone: | | | | | (DIABETES | | [phone] | | | | | SELF-MANAGEM | | Fax: | | | | | ENT) | | [phone] | +--------+--------+ + + + + Reason [...] + + | 08/25/ | Hospital | [facility] [address] | [address] | | | 2015 - | Encounter | Nathalia Bernardo MD [address] | | | | | 14C [facility] | [address] | | | 08/27/ | | [place], [place] | [place], [place] | | | 2014 | | [address] | [address] | | | | | [phone] | [phone] | | | | | | | | | | | | Harris Martínez MD | | | | | | Chrissie | | | | | | [facility] | | | | | | Center [address] | | | | | | [address] [place], | | | | | | [place] [address] | | | | | | [phone] | | | | | | | | | | | | Jeff Diggs, | | | | | | ,MPH [address] | | | | | | [address] | | | | | | [place], [place] | | | | | | [address] | | | | | | [phone] | | | | | | | | | | | | Eunice Parada, | | | | | | [address] | | | | | | [address] | | | | | | [place], [place] | | | | | | [address] | | | | | | [phone] | | | | | | | [...] Procedures 1. Gastric emptying study Consulting Services: Wildlife Biostation Research Ecologist Reason For Admission: Diabetic ketoacidosis. Hyperglycemia, acute [...] endocrinolog y and diabetes education here at [facility] which were completed. He was counseled on how to rotat e sites for his insulin injections. - Continue glargine 15 units daily + lispro 1 unit per 15 g carb - Outpatient referral to endocrinology and extension educator - Will need outpatient follow up [...] [facility] [address] [place] [place] [address] Follow up with [facility] 1st Floor. Specialty: Endocrinology, Diabetes & Metabolism Why: To establish care; follow up on referral to endocrinology if you do not hear back fr om them in 1 week Contact information [address] [facility] [place] [address] Physicians [facility] [address] Additional information: [facility], 1st floor [address] [place], [place] [id number] [facility] is the building just past [facility] for [facility]. Turn right immediately past the Pavilion. The entrance to [facility] will be on your right just beyond the main doors to the Pavili. An elevator in e parking garage will take patients directly to the floor of the clinic. The [facility] is located on the 1st floor. Please check in at the credit front office developer. M aps and directions can be found at: [email or web address] fm Other Discharge Orders and Instructions It was a pleasure taking care of you while you were here at [facility] 1) Take all your medications as prescribed especially your insulin and blood pressure medic ations 2) Follow up with your PCP Dr. Pascual on 09/02 at 740am. 3) Make sure to rotate location of where you inject your insulins and keep close track of y our blood sugars 4) We will make referral to [facility] endocrinology but please follow up with [...] nearest ER for evaluation. Referrals placed to [facility] endocrinology and extension educator This note was routed to patient's PCP in [place]. EUNICE PARADA MD Pager - [phone] Bankruptcy Legal Assistantdraw machine operator Clinical and Medicine [facility] Services [facility] I spent 45 minutes coordinating care for this patient's discharge, of which 30 minutes were spent [id number]-[id number] with the patient as well as with [...] about new lisinopril. Diabetes education provided by certified breastfeeding educator RNLiz. Pt reports he has all [...] is stating desire to establish with an Childcare Director. 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 Pt uses insulin syringe and [...] home. States willingness to come back to [facility] for endocrinology care, lives in The [...] steven. Pt expresses interest in establishing with electron beam machine welder setter here at [facility], and is willing to review/discuss further insulin pumps with endocrinology team. Informed pt that insulin pump does not take away the work (still need to check BG levels an d count carbs and give bolus doses) Recommendations 1. Encourage pt to attend support group 2. Encourage improving DM self management and care 3. Refer to [facility] diabetes center for endocrinology care 4. Refer to extension educator in diabetes center for updating carb [...] LD, RN, CDE Inpatient Diabetes Education Pager: [phone] Eunice Rich MD - 08/26/2015 9:03 AM PST Internal Medicine Clinical Hospitalist Service Progress Note ID/CC: Brooks Marquez (Keith) is a 24 year old man with poorly controlled type 1 diabetes trent litus (HgbA1c in 06/2015 of 12.5%) here with diabetic ketoacidosis in setting of impaired in sulin absorption due to subcutaneous scar tissue with concurrent lactic acidosis (now [facility]), no clear infectious etiology for trigger [...] full code EUNICE PARADA MD Pager - [phone] Bankruptcy Legal Assistantdraw machine operator Clinical and Medicine Teaching Hospitalist Services [facility] I spent 40 minutes eogh-rv-udld with the patient as well as with [...] + + documented in this encounter Results CT GASTRIC EMPTYING STUDY (08/27/2015 2:13 PM PST) [...] VERDE | [address] | [place], [place] | | | TANJA HAY OF ANNA | [facility] | [address] | | | TESTS | | | [...] MARQUAM | [address] | [place], [place] | | | TANJA HAY OF ANNA | [facility] | [address] | | | TESTS | | | [...] (H) | 60 - 99 mg/dL | [facility] - | | | GLUCOSE, | [...] + + + | VERITO VERDE | [address] | [place], [place] | | | SAT[facility] EXPORT OF [facility] | [address] | [address] | | | TESTS | | | [...] | | | LABORATORY | | | [facility] | | | SERVICES, | | | [...] | + + + + + | [facility] | [address] | [place] [address] | | | SERVICES, CORE | ZENA [...] 97 | 60 - 99 mg/dL | [facility] - | | | GLUCOSE, | [...] VERDE | [address] | [place], [place] | | | TANJA HAY OF CARE | [address] | [address] | | | TESTS | | | [...] AMMON | [address] | [place], [place] | | | TANJA HAY OF ANNA | [address] | [address] | | | TESTS | | | [...] - AMMON | [address] | [place], [place] | | | TANJA HAY OF CARE | [facility] | [address] | | | TESTS | | | [...] VERDE | [address] | [place], [place] | | | TANJA HAY OF CARE | [facility] | [address] | | | TESTS | | | [...] AMMON | [address] | [place], [place] | | | TANJA HAY OF ANNA | [address] | [address] | | | TESTS | | | [...] - AMMON | [address] | [place], [place] | | | TANJA HAY OF CARE | [facility] | [address] | | | TESTS | | | [...] (H) | 60 - 99 mg/dL | [facility] - | | | GLUCOSE, | [...] VERDE | [address] | [place], [place] | | | TANJA HAY OF [facility] | [address] | [address] | | | TESTS | | | [...] AMMON | [address] | [place], [place] | | | TANJA HAY OF ANNA | [address] | [address] | | | TESTS | | | [...] - AMMON | [address] | [place], [place] | | | TANJA HAY OF CARE | [facility] | [address] | | | TESTS | | | [...] (H) | 60 - 99 mg/dL | [facility] - | | | GLUCOSE, | [...] VERDE | [address] | [place], [place] | | | T[facility] | [facility] | [address] | | | TESTS | | | [...] AMMON | [address] | [place], [place] | | | TANJA HAY OF ANNA | [address] | [address] | | | TESTS | | | [...] | | | LABORATORY | | | [facility] | | | SERVICES, | | | [...] | + + + + + | [facility] | [address] | [place] [address] | | | SERVICES, CORE | ZENA [...] MARQUAM | [address] | [place], [place] | | | SATNAM POINT OF CARE | [address] | [address] | | | TESTS | | | [...] AMMON | [address] | [place], [place] | | | TANJA HAY OF CARE | [address] | [address] | | | TESTS | | | [...] (H) | 60 - 99 mg/dL | [facility] - | | | GLUCOSE, | [...] VERDE | [address] | [place], [place] | | | TANJA HAY OF ANNA | [address] | [address] | | | TESTS | | | [...] MARQUAM | [address] | [place], [place] | | | SATNAM POINT OF CARE | [address] | [address] | | | TESTS | | | [...] AVELINAAM | [address] | [place], [place] | | | TANJA HAY OF CARE | [address] | [address] | | | TESTS | | | [...] VERDE | [address] | [place], [place] | | | TANJA HAY OF ANNA | [address] | [address] | | | TESTS | | | [...] MARQUAM | [address] | [place], [place] | | | SATNAM POINT OF CARE | [address] | [address] | | | TESTS | | | [...] VERDE | [address] | [place], [place] | | | [facility] | [address] | [address] | | | TESTS | | | [...] | | | LABORATORY | | | [facility] | | | SERVICES, | | | [...] the MDRD equation recommended by the | [facility] | | National Kidney Disease Education Program. [...] [facility] | [address] | [place] [address] | | | SERVICES, CORE | PARK [...] [facility] | [address] | [place] [address] | | | ZOEY DODD | ZENA [...] MARQUAM | [address] | [place], [place] | | | TANJA HAY OF CARE | [facility] | [address] | | | TESTS | | | [...] VERDE | [address] | [place], [place] | | | TANJA HAY OF CARE | [address] | [address] | | | TESTS | | | [...] MARQUAM | [address] | [place], [place] | | | TANJA HAY OF ANNA | [address] | [address] | | | TESTS | | | [...] AMMON | [address] | [place], [place] | | | SATNAM POINT OF [facility] | [address] | [address] | | | TESTS | | | [...] activity: 50-100 | | | mg/dLDepression of TITLE INSURANCE SALES REPRESENTATIVE: >100 mg/dLFatalities reported: >400 mg/dL | | | Acetone, Methanol and Isopropanol:<5 mg/dL: Reported as Not | | | Detected<10 mg/dL but >5 mg/dL: Reported as <10 mg/dL>10 mg/dL: | | | Reported as measured numeric value Test performed by: [facility] | | | [facility] [address] [address] | | |<5 mg/dL: Reported as Not Detected | | |<10 mg/dL but >5 mg/dL: Reported as <10 mg/dL | | |>10 mg/dL: Reported as measured numeric value | | | | | |Test performed by: | | |[facility] | | |[address] | | |[place] [address] | | + + + + + [...] VERDE | [address] | [place], [place] | | | TANJA HAY OF ANNA | [facility] | [address] | | | TESTS | | | [...] [facility] | [address] | [place] [address] | | | SERVICES, CORE | PARK [...] | | | LABORATORY | | | [facility] | | | SERVICES, | | | [...] the MDRD equation recommended by the | [facility] | | National Kidney Disease Education [...] [facility] | [address] | [place] [address] | | | SERVICES, CORE | PARK [...] | + + + + + | [facility] | [address] | [place] [address] | | | SERVICES, CORE | ZENA [...] MARQUAM | [address] | [place], [place] | | | TANJA HAY OF CARE | [address] | [address] | | | TESTS | | | [...] VERDE | [address] | [place], [place] | | | SAT[place] POINT OF CARE | [address] | [address] | | | TESTS | | | [...] MARQUAM | [address] | [place], [place] | | | SAT[place] POINT OF CARE | [address] | [address] | | | TESTS | | | [...] MARQUAM | [address] | [place], [place] | | | TANJA HAY OF ANNA | [facility] | [address] | | | TESTS | | | [...] VERDE | [address] | [place], [place] | | | SATNAM POINT OF CARE | [address] | [address] | | | TESTS | | | [...] | + + + + + | [facility] | [address] | [place] [address] | | | SERVICES, CORE | ZENA [...] | + + + + + | [facility] | [address] | [place] [address] | | | SERVICES, CORE | PARK [...] | + + + + + | [facility] | [address] | [place] [address] | | | SERVICES, CORE | ZENA [...] 24 | 22 - 29 mmol/L | [facility] - | | | | | | MARARTEMIO | | | | | | TANJA HAY | | | | | | OF CARE | | | | | | TESTS | | + + + + + + | GLUCOSE, | >700 (AA) | 60 - 99 mg/dL | [facility] - | | | POC | | | MARQUAM | | | | | | TANJA HAY | | | | | | OF CARE | | | | | | TESTS | | + + + + + + | BUN, POC | 18 | 6 - 20 mg/dL | [facility] - | | | | | [...] AMMON | [address] | [place], [place] | | | TANJA HAY OF CARE | [address] | [address] | | | TESTS | | | [...] AMMON | [address] | [place], [place] | | | TANJA HAY OF ANNA | [address] | [address] | | | TESTS | | | [...] + + | [facility] | [address] | [place], [place] | | | CARDIOLOGY | [address] | [address] | | + + + + + RAINBOW HOLD TUBE - RED TOP (08/25/2015 9:33 PM PST) + + | Specimen | + + | Blood - Blood | | (substance) | + + + + + + + | Performing | Address | City/State/Zipcode | Phone Number | | Organization | | | | + + + + + | [facility] | [address] [facility] | [place] [address] | | | SERVICES, CORE | ZENA [...] [facility] | [address] | [place] [address] | | | SERVICES, CORE | PARK [...] | + + + + + | [facility] | [address] | [place] [address] | | | SERVICES, CORE | ZENA [...] [facility] | [address] | [place] [address] | | | SERVICES, | [address] [...] | | | LABORATORY | | | [facility] | | | SERVICES, | | | [...] | + + + + + | [facility] | [address] | [place] [address] | | | SERVICES, CORE | ZENA [...] [facility] | [address] | [place] [address] | | | YOUSIF, CORE | PARK [...] | + + + + + | [facility] | [address] | [place] [address] | | | SERVICES, CORE | PARK [...] | + + + + + | [facility] | [address] | [place] [address] | | | SERVICES, CORE | ZENA [...] VERDE | [address] | [place], [place] | | | SAT[place] POINT OF CARE | [address] | [address] | | | TESTS | | | | + + + + + ED INFORMATION EXCHANGE (08/25/2015 9:25 PM PST) + + + + + + | Component | Value | Ref Range | Performed | Pathologist | | | | | At | Signature | + + + + + + | TRUDY PID | [id number] | | COLLECTIVE | | | | [id number] | | MEDICAL | | | | [...] | | | 08/25/2015 21:25 [facility] | | | Emergency [address]. Abdominal Pain 08/24/2015 16:44 | | | [facility] Emergency -Abd Pain | | | | | | -Epigastric pain | | | | | | -Cyclical vomiting, intractable | | | | | | -Hyperglycemia, unspecified | | | | | | -Abdominal Pain 08/18/2015 | | | 17:23 [facility] Emergency | | | -Gastroparesis | [...] -Abdominal Pain 08/09/2015 12:53 | | | [facility] Emergency | | | -Abdominal Pain | | | | | | -Generalized abdominal pain | | | | | | -abd pain | | | -Vomiting | | | | | | -Cyclical vomiting, | | | intractable 08/01/2015 20:43 [facility] | | | Hospital Emergency -Cyclical vomiting, intractable | | | | | | -vomiting abd pain | | | | | | -Hyperglycemia | | | | | | -Abdominal Pain | | | | | | -Generalized abdominal pain | | | | | | -Gastroparesis 07/26/2015 16:13 [facility] | | | [facility] Emergency -vomiting, pain, diabetic | | | | | | -Cyclical vomiting, not | | | intractable | | | -Vomiting | | | 05/30/2015 17:01 [facility] | | | Emergency -Abdominal Pain | | | | | | -Finger Injury | | | -abd | | | pain 05/29/2015 21:54 [facility] | | | Emergency -Gangrene | [...] | | | Location ------ --------- [facility] | | | [facility] 1 [facility] | | | [place] 1 [facility] 1 | | | [facility] 14 Total Note: | | | Visits indicate total known visits. | | | | | | --- | | + + + + + + + + | Performing | Address | City/State/Zipcode | Phone Number | | Organization | | | | + + + + + | [employer] | [address] | [place], [place] | [phone] | | TECHNOLOGIES | [address] | [address] | | + + + + + [...]
--- OUTSIDE RECORDS SUMMARY | ~2020-03-21 | XMS | Encounter Summary ---
Demographics + + + | Address | [address] | | | [place] [address] | + + + | Home Phone [...] | Samantha Ramos | ECON | [address] # | | | | | [place] | | | | | [address] | | + + + + + Care Team Providers + +------+ + | Care Decal Cutter Name | Role | Phone | [...] | | | | unspecified | [facility] [address] | [address] | | | | | type | [address] | Wendy | | | | | Procedures | [facility] | [place], [place] | | | | | CONSULT TO | Rd | [address] | | | | | HEMATOLOGY / | [place], [place] | Phone: | | | | | ONCOLOGY | [address] | [phone] | | | | | [place] NEW | Phone: | Fax: | | | | | PATIENT | [phone] | [phone] | | | | | LEVEL V [place] | Fax: | | | | | | EST PATIENT | [phone] | | | | | | LEVEL [...] | Diabetic | Lashawn Tan, | Ch[address] | | | | | gastroparesi | PA-C [address] | | | | | s (HCC) | [address] | Mailcode: | | | | | Abdominal | [facility] | [address] | | | | | pain, | Rd | for Health | | | | | chronic, | [place], [place] | and Healing, | | | | | epigastric | [address] | [address] | | | | | Chronic | Phone: | [place], [place] | | | | | diarrhea | [phone] | [address] | | | | | Severe | Fax: | Phone: | | | | | protein-judy | [phone] | [phone] | | | | | danyel | | Fax: | | | | | malnutrition | | [phone] | | | | | (HCC) | [...] | | 2019 | | Center at [facility] [address] | PA-C [address] | (Local provider, | | | | Zee Nguyen | [address] | local labs) | | | | Mailcode: Center | [place], [place] | | | | | [facility] and | [address] | | | | | [place] [address] | [phone] | | | | | [place], [place] | | | | | | [address] | | | | | | [phone] | | | +--------+ + + + [...]
--- OUTSIDE RECORDS SUMMARY | ~2020-03-21 | XMS | Encounter Summary ---
Demographics + + + | Address | [address] | | | [place] [address] | + + + | Home Phone [...] Samantha Ramos | ECON | [address] # | | | | | [place] | | | | | [address] | | + + + + + Care Team Providers + +------+ + | Care Wall Worker Name | Role | Phone | [...] bone and | Lily Todd | [address] [place], | | | | | articular | [place], [place] | [place] | | | | | cartilage | [address] | [address] | | | | | Loose body | Phone: | Phone: | | | | | in upper arm | [phone] | [phone] | | | | | joint | Fax: | Fax: | | | | | Procedures | [phone] | [phone] | | | | | CONSULT TO | | | | | | | [place] | | | | | | | EXPLORE | | | | | | | ELBOW JOINT | | | | | | | [place] BONE | | | | | | [...] | | | | Mailcode: PV430 | [place], [place] | Uncertain Behavior | | | | [facility] | [address] | of Bone and | | | | [place], [place] | [phone] | Articular Cartilage | | | | [address] | | | | | | [phone] | | | +--------+---------+ + + + [...] Codeine Social history: The patient lives in [place], [place]. The patient smokes half a pack [...]
--- OUTSIDE RECORDS SUMMARY | ~2020-03-21 | XMS | Encounter Summary ---
Demographics + + + | Address | [address] | | | [place] [address] | + + + | Home Phone [...] Samantha Ramos | ECON | [address] # | | | | | [place] | | | | | [address] | | + + + + + Care Team Providers + +------+ + | Care Office Services Associate Name | Role | Phone | [...] | | 2019 | | Center at [facility] [address] | [address] | | | | | [address] | [address] [place], | | | | | Mailcode: [place] | [place] [address] | | | | | for Health and | [phone] | | | | | [facility] 2 | | | | | | [place], [place] | | | | | | [address] | | | | | | [phone] | | | +--------+ + + + [...]
--- OUTSIDE RECORDS SUMMARY | ~2020-03-21 | XMS | Encounter Summary ---
Demographics + + + | Address | [address] | | | [place] [address] | + + + | Home Phone [...] [place] | | | | | [address] | | + + + + + Care Team Providers + +------+ + | Care Napkin Machine Operator Name | Role | Phone [...] (HCC) (Primary Dx) | | | | [place], [place] | [place] [address] | | | | | [address] | [phone] | | | | | [phone] | | | +--------+ + + + [...] PDTLabs for upcoming nephrology appointment sent to: [facility] One time lab follow up. Sandra patient. [...] 2019 | Visit | | [address] [facility] | | | | | | [address] | | | | | | [address] | | | | | | | [...]
--- OUTSIDE RECORDS SUMMARY | ~2020-03-21 | XMS | Encounter Summary ---
Demographics + + + | Address | [address] | | | [place] [address] | + + + | Home Phone | | + + + | Preferred Language | Unknown | + + + | Marital Status | Single | + + + | Evangelical Affiliation | NON | + + + [...] Samantha Ramos | ECON | [address] # | | | | | [place] | | | | | [address] | | + + + + + Care Team Providers + +------+ + | Care Private Branch Exchange Operator Name | Role | Phone | [...] | | | | Mailcode: PV430 | [place], [place] | | | | | [facility] | [address] | | | | | [place], [place] | [phone] | | | | | [address] | | | | | | [phone] | | | +--------+ + + + [...]
--- OUTSIDE RECORDS SUMMARY | ~2020-03-21 | XMS | Encounter Summary ---
Demographics + + + | Address | [address] | | | [place] [address] | + + + | Home Phone [...] Samantha Ramos | ECON | [address] | | | | | [place] | | | | | [address] | | + + + + + Care Team Providers + +------+ + | Care Cigar Head Puncher Name | Role | Phone | + [...] | | | | Mailcode: [id number] | [place], [place] | | | | | [facility] | [address] | | | | | [place], [place] | [phone] | | | | | [address] | | | | | | [phone] | | | +--------+ + + + [...]
--- OUTSIDE RECORDS SUMMARY | ~2020-03-21 | XMS | Encounter Summary ---
Demographics + + + | Address | [address] | | | [place] [address] | + + + | Home Phone | | + + + | Preferred Language | Unknown | + + + | Marital Status | Single | + + + | Zoroastrian Affiliation | Unknown | + + + | Race | Unknown | + + + | Ethnic Group | Unknown | + + + Author + + + | Author | [facility] | | | and [place] | + + + | Organization | [facility] | | [...] [place] | | | | | [address] | | + + + + + Care Team Providers + +------+ + | Care Miller Helper Name | Role | Phone | + +------+ + | Erich Yates | PCP | | + +------+ + Encounter Details +--------+ + + + + | Date | Type | Department | Care Team | Description | +--------+ + + + + | 05/15/ | Orders Only | [facility] | Conversion | | | 2017 | | [place] | Transaction, | | | | | [address] | Provider Unknown | | | | | [address] [place], [place] | | | | | | [address] | (Fax) | | | | | [phone] | | | +--------+ + + + [...] 2020 | Visit | | [address] [facility] | | | | | | [address] [place] | | | | | | [address] | | | | | | | [...] - 1.030 | EXTERNAL | | | [place], | | | LAB | | | [...]
--- OUTSIDE RECORDS SUMMARY | ~2020-03-21 | XMS | Encounter Summary ---
Demographics + + + | Address | [address] | | | [place] [address] | + + + | Home Phone [...] Samantha Ramos | ECON | [address] | | | | | [place], [place] | | | | | [address] | | + + + + + Care Team Providers + +------+ + | Care Junior Mechanical Engineer Name | Role | Phone [...] as of this encounter Discharge Summaries Interface, Newspaper Deliverer In - 04/08/2006 3:[address] [address] [facility] MEDICAL SUMMARY OF HOSPITALIZATION Med Rec No: [...] initially presented to the emergency department in [place] with four to five days of flu-like [...] insulin drip. He was transferred to the [facility] Pediatric Intensive Care Unit. HOSPITAL COURSE: [...] diabetes education from the endocrinology team. A four slide operator also worked closely with the family in educating on the [employer] diets. On the day of [...] Lindsey M.D. Tereso Morocho M.D. TC:[id number] cc: [id number] signed by Interface, Newspaper Deliverer In at 04/08/2006 3:07 AM [facility] umented in this encounter Plan of Treatment Not on filedocumented as of this encounter Visit Diagnoses Not on filedocumented in this encounter"
--- OUTSIDE RECORDS SUMMARY | ~2020-03-21 | XMS | Encounter Summary ---
Demographics + + + | Address | [address] | | | [place] [address] | + + + | Home Phone | | + + + | Preferred Language | Unknown | + + + | Marital Status | Single | + + + | Latter-Day Affiliation | Unknown | + + + | Race | Unknown | + + + | Ethnic Group | Unknown | + + + Author + + + | Author | [facility] | | | and [place] | + + + | Organization | [facility] | | | and [...] [place] | | | | | [address] | | + + + + + Care Team Providers + +------+ + | Care Hog Tender Name | Role | Phone | + +------+ + | Erich Yates | PCP | | + +------+ + Encounter Details +--------+ + + + + | Date | Type | Department | Care Team | Description | +--------+ + + + + | 02/01/ | Abstract | [facility] | Divya, | | | 2018 | | GASTROENTEROLOGY | MD [address] | | | | | [address] [facility] | [place] Wendy. | | | | | [address] | [place] [address] | | | | | [address] | | | | | | [phone] | | | +--------+ + + + [...] 2019 | Visit | | [address] [facility] | | | | | | 160 [place], [place] | | | | | | [address] | | | | | | | [...] - 1.03 | EXTERNAL | | | [place], | | | LAB | | | [...]
--- OUTSIDE RECORDS SUMMARY | ~2020-03-21 | XMS | Encounter Summary ---
Demographics + + + | Address | [address] | | | [place] [address] | + + + | Home Phone [...] + + | Author | [facility] | | | and [place] | + + + | Organization | [facility] | | [...] [place] | | | | | [address] | | + + + + + Care Team Providers + +------+ + | Care Invoice Clerk Name | Role | Phone | [...] [address] | [address] [place], [place] | ([facility]) (Primary Dx) | | | | [facility] [place] | [address] | | | | | [address] | | | | | | [phone] | | | +--------+ + + + [...] Visit | | [address] [facility] [address] | | | | | | 160 [place], [place] | | | | | | [address] | | | | | | | [...]
--- OUTSIDE RECORDS SUMMARY | ~2020-03-21 | XMS | Encounter Summary ---
Demographics + + + | Address | [address] | | | [place] [address] | + + + | Home Phone [...] Samantha Ramos | ECON | [address] | | | | | [place] | | | | | [address] | | + + + + + Care Team Providers + +------+ + | Care Market Garden Worker Name | Role | Phone | [...] [address] | | | | | [place], [place] | [place], [place] | | | | | [address] | [address] | | | | | [phone] | [phone] | | | | | | | [...] | | N, | Test performed by [facility] | | | | | [facility] | [facility] | | | | | M | [facility]. | | | | + + [...] + + + | [facility] | [address] | [place] [address] | | | LABORATORY | | | | + + + + + documented in this encounter Visit Diagnoses Not on filedocumented in this encounter"
--- OUTSIDE RECORDS SUMMARY | ~2020-03-21 | XMS | Encounter Summary ---
Demographics + + + | Address | [address] | | | [place] [address] | + + + | Home Phone [...] [id number] | | | | | [address] | | + + + + + Care Team Providers + +------+ + | Care Machinist Wood Name | Role | Phone | [...] + | 09/19/ | Anesthesia | [facility] | Tereso Dillon, | | | 2017 | Event | [facility] | [address] | | | | | [address] | [place] | | | | | [place] | [address] | | | | | [address] | | | | | | [phone] | | | +--------+ + + + [...] +----+---+ + + | | 2 | [place] | | | | 0 | 43-degrees | | | | 4 | | | | | 8 | | | +----+---+ + + | | 2 | First | | | | 0 | Inc/Proc St | | | | 5 | | | | | 4 | | | +----+---+ + + | | 2 | [place] off | | | | 1 | [...] + + documented as of this encounter [place] Notes Anesthesia Postprocedure Evaluation - Tereso Dillon MD - 09/19/2018 10:04 PM PSTFormavni ng of this note might be different from the original. ANESTHESIA POSTANESTHESIA EVALUATION Brooks Marquez 27 y.o. male 1990 [id number] Procedure(s) CYSTOSCOPY W/ URETEROSCOPY W/ LASER LITHOTRIPSY WITH STENT PLACEMENT (Right U reter) Cooperates? Yes Mental Status Performs simple tasks. Respiratory Satisfactory - Airway patent (self maintained). Cardiovascular Satisfactory - Blood pressure and heart rate acceptable Temperature Satisfactory Pain Satisfactory N/V Control Satisfactory Hydration Satisfactory - No signs of dehydration Complications None apparent Vitals: 09/19/18 1916 09/19/18215709/19/180 BP: (!) 162/106 94/60 94/60 Pulse: 96 72 73 Temp: 35.7 C (96.2 F) 36.6 C (97.9 F) Resp: 16 16 10 SpO2: 100% 100% 100% Electronically signed by Tereso Dillon MD 09/19/2018 22:04 [facility] by Tereso Dillon MD at 08/27 10:04 PM PSTAnesthesia Procedure Notes - Tereso Dillon MD - 09/19/2018 8:55 PM PS TAssociated Order(s): ANE AIRWAY NOTEAnesthesia Airway Placement 09/19/2018 20:40 Preprocedure check: patient identified, suction, airway equipment checked, oxygen, airway a ssessed and patient reassessment prior to induction Rapid Sequence Induction: no Mask ventilation: easy Attempts: 1 Airway type: laryngeal mask Size: 5 Cuffed: cuffed Route, reference point: center of mouth Trauma: none Tube placement verification: carbon dioxide detection Performing provider: TERESO DILLON Electronically Signed by: Tereso Dillon MD ESig date/time: 20:55 nesthesia Preprocedu re Evaluation - Tereso Dillon MD - 09/19/2018 8:22 PM PSTFormatting of this note might b e different from the original. ANESTHESIA PREANESTHESIA EVALUATION Brooks Marquez 27 y.o. male 1990 [id number] Procedure(s): CYSTOSCOPY W/ URETEROSCOPY W/ LASER LITHOTRIPSY WITH STENT PLACEMENT (Right ) Medical history, anesthesia, medications, allergy, NPO status verified histories reviewed. ECG reviewed. Labs reviewed. Review of Systems / Med History Anesthesia History (-) PONV, difficult intubation, malignant hyperthermia Cardiovascular ECG today from OSH -- shows sinus rhythm with some peaked T waves (K 5.7). (+) hypertension(-) past CT , Exercise tolerance >4 METS Pulmonary No acute pulmonary concerns.. (+) smoking history (Current) Neurology (-) CVA Psychology (+) substance abuse (Marijuana) Renal (-) chronic renal insufficiency Gastrointestinal/Hepatic (-) reflux/GERD. Endocrine (+) Diabetes (Retinopathy of Diabetes): type 1, IDDM Other (+) arthritis Physical Exam Airway MP II, TM >3 FB, Mouth opening >2 FB. Neck: full ROM, extends >30 degrees. Dental ; R eports most teeth as chipped, which is corroborated by oral exam. Most teeth lined with car ies. (+) Chipped/Broken teeth, missing teeth and Poor dentition. CV Rhythm regular. Rate Normal. (-) murmur. Pulm Clear to auscultation bilaterally. Neuro Grossly normal. Other Generally unpleasant in his responses, terse in nature. 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 Induction: Intravenous. Potential problems: None anticipated. Monitors: Standard ASA monitors. Consent statement:Anesthetic plan, alternatives, risks and benefits discussed with patient. Risks discussed included (but were not limited to): sore throat, nausea, heart problems, re spiratory events, pain, perioperative CV events, . Consenting person understands and agrees to proceed. PARQ. K 5.7 at OSH w/ peaked T waves on ECG. Calcium intraop. Check CBG, if elevated treat with insulin. Fluid to be NS. documented in this en counter Plan of Treatment +--------+---------+ + + + | Date | Type | Specialty | Care Team | Description | +--------+---------+ + + + | 05/07/ | Office | Nephrology | Winston Whitman MD | | | 2020 | Visit | | [address] | | | | | | [address] [place], [place] | | | | | | [address] | | | | | | | [...] - 09/19/2018 8:55 PM PST Anesthesia Airway Uxeyyrmrs70/25/2018 | | 20:40Preprocedure check: patient identified, suction, airway equipment checked, oxygen, | | airway assessed and patient reassessment prior to inductionRapid Sequence Induction: | | noMask ventilation: easyAttempts: 1Airway type: laryngeal maskSize: 5Cuffed: | | cuffedRoute, reference point: center of mouthTrauma: noneTube placement verification: | | carbon dioxide detectionPerforming provider: TERESO DILLON TElectronically Signed by: | | Tereso Dillon MD ESig date/time: 09/19/2018 20:55 | | | |Size: 5 | |Cuffed: cuffed | |Route, reference point: center of mouth | |Trauma: none | |Tube placement verification: carbon dioxide detection | |Performing provider: TERESO DILLON | | | | | |Electronically Signed by: MD Matthias Connor date/time: 20:55 | | | + [...] | | | | | 09/19/18 at 2039, Anesthesia | | PM PST | | | | | Intra-op | | | | | | + +--------+ +--------+------+------+ +-------+ +--------+---+---+ | Given | 09/19/20 | [...] mg | | | | PRN, Starting 09/19/18 at | | 18 8:39 | | | | | 2038, Anesthesia Intra-op | | PM PST | | | | + +-------+ +-------+---+---+ +---+---+ | | | +---+---+ + +-------+ +------+---+---+ | ondansetron (ZOFRAN) injection | Given | 09/19/20 | 4 mg | | | | PRN, Nausea, Vomiting, Starting | | 18 8:51 | | | | | 09/19/18 at 2050, Anesthesia | | PM PST | | | | | Intra-op | | | | | | + +-------+ +------+---+---+ +---+---+ | | | +---+---+ + +-------+ +--------+---+---+ | propofol (DIPRIVAN) injection | Given | 09/19/20 | 135 mg | | | | Intravenous, PRN, Starting Tue | | 18 8:39 | | | | | 09/19/18 [...] | | | | | PRN, Starting 09/19/18 at | | PM PST | | [...]
--- OUTSIDE RECORDS SUMMARY | ~2020-03-21 | XMS | Encounter Summary ---
Demographics + + + | Address | [address] | | | [place] [address] | + + + | Home Phone | | + + + | Preferred Language | Unknown | + + + | Marital Status | Single | + + + | Sabianist Affiliation | Unknown | + + + | Race | Unknown | + + + | Ethnic Group | Unknown | + + + Author + + + | Author | [facility] | | | and [place] | + + + | Organization | [facility] | | [...] [place] | | | | | [address] | | + + + + + Care Team Providers + +------+ + | Care Art Therapy Specialist Name | Role | Phone | [...] [address] | | | | | [place], [place] | [place] [address] | | | | | [address] | [phone] | | | | | [phone] | | | +--------+---------+ + + + [...] | Visit | | [address] [facility] | | | | | | 160 [place], [place] | | | | | | [address] | | | | | | | [...]
--- OUTSIDE RECORDS SUMMARY | ~2020-03-21 | XMS | Encounter Summary ---
Demographics + + + | Address | [address] | | | [place] [address] | + + + | Home Phone [...] Samantha Ramos | ECON | [address] | | | | | [place] | | | | | [address] | | + + + + + Care Team Providers + +------+ + | Care Hand Filer Balance Wheel Name | Role | Phone | + +------+ + | Erich Yates PA-C | PCP | | + +------+ + Encounter Details +--------+ + + + + | Date | Type | Department | Care Team | Description | +--------+ + + + + | 10/11/ | Transcribe | [facility] | Transcribe | | | 2020 | Orders | [facility] [address] | Encounter, Provider, | | | | | Elliott Nguyen Mailcode: | [address] | | | | | [facility] for | [place] [address] | | | | | Health and Healing, | | | | | | Building [address] | | | | | | [place], [place] | | | | | | [address] | | | | | | [phone] | | | +--------+ + + + [...] | | | | | ([facility]) | | +------+ +--------+ + + documented as of this encounter Visit Diagnoses + + | Diagnosis | + + | Diabetic gastroparesis associated with type 1 diabetes mellitus (HCC) - Primary | + + documented in this encounter"
--- OUTSIDE RECORDS SUMMARY | ~2020-03-21 | XMS | Encounter Summary ---
Demographics + + + | Address | [address] | | | [place] [address] | + + + | Home Phone [...] + + + | Author | [facility] | + + + | Organization | [facility] | + + + | Address | Unknown | + + + | Phone | Unavailable | + + + Support + + + + + | Name | Relationship | Address | Phone | + + + + + | Samantha Ramos | ECON | [address] # | | | | | [place] | | | | | [address] | | + + + + + Care Team Providers + +------+ + | Care Rehab Aide Name | Role | Phone | + +------+ + | Erich Yates PA-C | PCP | | + +------+ + Encounter Details +--------+ + + + + | Date | Type | Department | Care Team | Description | +--------+ + + + + | 07/06/ | Transcribe | [facility] | Transcribe | | | 2019 | Orders | [facility] [address] | Encounter, Provider, | | | | | Elliott Nguyen Mailcode: | [address] | | | | | [facility] for | [place] [address] | | | | | Health and Healing, | | | | | | [address] | | | | | | [place], [place] | | | | | | [address] | | | | | | [phone] | | | +--------+ + + + [...]
--- OUTSIDE RECORDS SUMMARY | ~2020-03-21 | XMS | Encounter Summary ---
Demographics + + + | Address | [address] | | | [place] [address] | + + + | Home Phone [...] [id number] | | | | | [address] | | + + + + + Care Team Providers + +------+ + | Care Vocational Adviser Name | Role | Phone | + [...] + + | 06/22/ | Telephone | [facility] | Winston Whitman MD | Other (Appointment | | 2019 | | NEPHROLOGY [place] | [address] | reminder call) | | | | [address] | [address] [place], [place] | | | | | 160 [place] | [id number] | | | | | [address] | | | | | | [phone] | | | +--------+ + + + [...] 2019 | Visit | | [address] [facility] | | | | | | 160 [place], [place] | | | | | | [address] | | | | | | | | +--------+---------+ + + + documented as of this encounter Visit Diagnoses Not on filedocumented in this encounter"
--- OUTSIDE RECORDS SUMMARY | ~2020-03-21 | XMS | Encounter Summary ---
Demographics + + + | Address | [address] | | | [place] [address] | + + + | Home Phone [...] Samantha Ramos | ECON | [address] # | | | | | [place] | | | | | [address] | | + + + + + Care Team Providers + +------+ + | Care Gasoline Pump Mechanic Name | Role | Phone | [...] | | | | | diabetes | [place], [place] | floor | | | | | mellitus | [address] | [place], [place] | | | | | (HCC) | Phone: | [address] | | | | | Procedures | [phone] | Phone: | | | | | CONSULT TO | Fax: | [phone] | | | | | ENDOSCOPY | [phone] | Fax: | | | | | UNIT: EGD | | [phone] | + +--------+ + + + + [...] | | 2020 | | Center at [facility] [address] | [address] [facility] | | | | | [address] | [address] [place], | | | | | Mailcode: [place] | [place] [address] | | | | | for Health and | [phone] | | | | | [facility] 2 | | | | | | [place], [place] | | | | | | [address] | | | | | | [phone] | | | +--------+ + + + [...]
--- OUTSIDE RECORDS SUMMARY | ~2020-03-21 | XMS | Encounter Summary ---
Demographics + + + | Address | [address] | | | [place] [address] | + + + | Home Phone [...] Samantha Ramos | ECON | [address] # | | | | | [place] | | | | | [address] | | + + + + + Care Team Providers + +------+ + | Care Machine Cementer Name | Role | Phone | + +------+ + | Erich Yates PA-C | PCP | | + +------+ + Encounter Details +--------+ + + + + | Date | Type | Department | Care Team | Description | +--------+ + + + + | 01/22/ | Abstract | Digestive Health | Neri Steven MD | | | 2020 | | [place] [facility] [address] | [address] | | | | | [address] | [address] [place], | | | | | Mailcode: [place] | [place] [address] | | | | | for Health and | [phone] | | | | | [facility] 2 | | | | | | [place], [place] | | | | | | [address] | | | | | | [phone] | | | +--------+ + + + [...]
--- OUTSIDE RECORDS SUMMARY | ~2020-03-21 | XMS | Encounter Summary ---
Demographics + + + | Address | [address] | | | [place] [address] | + + + | Home Phone [...] Samantha Ramos | ECON | [address] | | | | | [place] | | | | | [address] | | + + + + + Care Team Providers + +------+ + | Care Multimedia Specialist Name | Role | Phone | [...] [address] | | | | | [place], [place] | [place], [place] | | | | | [address] | [address] | | | | | [phone] | [phone] | | | | | | | [...] | | N, | Test performed by [place] | | | | | URINE-REPLACED BY [facility] | [facility] | | | | | M | [facility]. | | | | + + [...] + + + | [facility] | [address] | [place] [address] | | | LABORATORY | | | | + + + + + documented in this encounter Visit Diagnoses Not on filedocumented in this encounter"
--- OUTSIDE RECORDS SUMMARY | ~2020-03-21 | XMS | Encounter Summary ---
Demographics + + + | Address | [address] | | | [place] [address] | + + + | Home Phone | | + + + | Preferred Language | Unknown | + + + | Marital Status | Single | + + + | Orthodox Affiliation | Unknown | + + + | Race | Unknown | + + + | Ethnic Group | Unknown | + + + Author + + + | Author | [facility] | | | and [place] | + + + | Organization | [facility] | | | and [...] [place] | | | | | [address] | | + + + + + Care Team Providers + +------+ + | Care Senior Electrical Project Manager Name | Role | Phone | [...] + + | 09/19/ | Hospital | [facility] | Tc Mora | Right ureteral | | 2018 - | Encounter | [facility] | MD [address] | stone; Acute kidney | | | | [address] | [address] [place] | injury (HCC); Flank | | 09/20/ | | [place] [address] | [id number] | pain; | | 2017 | | [phone] | | Hydronephrosis, | | | | [...] might be differ ent from the original. 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 CC: LEMUEL Anand documented in this encounter Consult Notes Allen Barnes MD - 09/20/2018 6:39 PM PSTFormatting of this note might be different fr om the original. [place] HOSPITALIST CONSULT NOTE Patient: Brooks Marquez : 1990: Age: 27 y.o. MedRec: [id number] Admission date: 09/19/2018 Hospital day # : [...] STENT PLACEMENT; Surgeon: Tc Mora MD; Location: [facility] MAIN OR FAMILY HISTORY: family history includes [...] pH, Urine 6.0 5.0 - 8.0 Specific [place] 1.012 1.001 - 1.030 Protein, Urine 100 [...] food missing myself. 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 This was explained multiple times. Patient understoo d the risks and signed an AMA form. Obstructive nephrolithiasis s/p R URS, LL and stent on 09/19/18 As per above DM1 Patient left AMA I reviewed and summarized old records I reviewed imaging Electronically signed by: Allen Barnes MD 09/20/2018 18:39 [facility] Portions of this chart may have been created with [employer] voice recognition software. Occasi onal wrong-word or [...] Marquez 27 y.o. 1990 Med. Record Number: [id number] Date of admission: 09/19/2018 Date of Operation/Procedure: 09/19/2018 Preoperative Diagnosis: Ureteral stone Postoperative Diagnosis: same Surgeon: Tc Mora MD Lime Mixer(s): none Anesthesia Provider(s): Anesthesiologist: Tereso Dillon MD [...] fluoroscopic guidance. We then used a 10 Emirati dual-lumen catheter to place a second guidewire [...] guidance.No significant lacerations were seen. A 6 Emirati variable length stent was then placed over [...] Electronically Signed by: Tc Mora, 09/19/2018 22:00 [facility] documented in this encounter Plan of Treatment +--------+---------+ + + + | Date | Type | Specialty | Care Team | Description | +--------+---------+ + + + | 05/07/ | Office | Nephrology | Winston Whitman MD | | | 2020 | Visit | | [address] [facility] | | | | | | [address] [place] | | | | | | [address] | | | | | | | [...] [address] | [place] | [phone] | | [facility] | | [address] | | | - LABORATORY | | [...] | | GLOMERULAR FILTRATION | mL/min/1.73m2 | [facility] | | | [place] | RATE,ESTIMATED | | MEDICAL | | | | mL/min/1.47k4Olkj than | | CENTER - | | [...] | | | | | mg/dL | [facility] | | | | | | [...] [address] | [place] | [phone] | | [facility] | | [address] | | | - LABORATORY | | [...] + | [facility] | [address] | [place] | [phone] | | [facility] | | [address] | | | - LABORATORY | | [...] into the clinical context for interpretation. | [facility] | | | - LABORATORY | + + + + + + + + | Performing | Address | City/State/Zipcode | Phone Number | | Organization | | | | + + + + + | [facility] | [address] | [place] | [phone] | | [facility] | | [address] | | | - LABORATORY | | [...] [address] | [place] | [phone] | | [facility] | | [address] | | | - LABORATORY | | [...] - 1.030 | [facility] | | | [place], | | | [facility] | | [...] | | Epithelial | | | [facility] | | | Cells, | | | [...] + | [facility] | [address] | [place] | [phone] | | [facility] | | [address] | | | - LABORATORY | | [...] [address] | [place] | [phone] | | [facility] | | [address] | | | - LABORATORY | | [...] [address] | [place] | [phone] | | [facility] | | [address] | | | - LABORATORY | | [...] [address] | [place] | [phone] | | [facility] | | [address] | | | - LABORATORY | | [...] [address] | [place] | [phone] | | [facility] | | [address] | | | - LABORATORY | | [...] mL/min/1.73m2 | [facility] | | | [place] | RATE,ESTIMATED | | MEDICAL | | | | mL/min/1.05k1Rzwj than | | CENTER - | | [...] [address] | [place] | [phone] | | [facility] | | [address] | | | - LABORATORY | | [...] [address] | [place] | [phone] | | [facility] | | [address] | | | - LABORATORY | | [...] MD | | | | | | ([id number]) on 09/21/2018 | | | | | [...] + | [facility] | [address] | [place] | [phone] | | [facility] | | [address] | | | - LABORATORY | | [...] [address] | [place] | [phone] | | [facility] | | [address] | | | - LABORATORY | | [...] | | | | | mg/dL | [facility] | | | | | | MEDICAL | | | | | | CENTER - | | | | | | LABORATORY | | + + + + + + | eGFR if not | 42 (L)Comment: | >=60 | [facility] | | | | GLOMERULAR FILTRATION | mL/min/1.73m2 | [facility] | | | [place] | RATE,ESTIMATED | | MEDICAL | | | | mL/min/1.24k6Bmrl than | | CENTER - | | [...] 8.2 (L) | 8.3 - 10.5 | [facility] | | | | | mg/dL | [facility] | | | | | | [...] [address] | [place] | [phone] | | [facility] | | [address] | | | - LABORATORY | | [...] + | [facility] | [address] | [place] | [phone] | | [facility] | | [address] | | | - LABORATORY | | [...] 1.93 (H) | 0.60 - 1.30 | [facility] | | | | | mg/dL | [facility] | | | | | | MEDICAL | | | | | | CENTER - | | | | | | LABORATORY | | + + + + + + | eGFR if not | 42 (L)Comment: | >=60 | [facility] | | | | GLOMERULAR FILTRATION | mL/min/1.73m2 | [facility] | | | [place] | RATE,ESTIMATED | | MEDICAL | | | | mL/min/1.35s6Ofuu than | | CENTER - | | [...] [address] | [place] | [phone] | | [facility] | | [address] | | | - LABORATORY | | [...] [address] | [place] | [phone] | | [facility] | | [address] | | | - LABORATORY | | [...] [facility] | | | | | | at:[phone]. | | | | + + + [...] | | | | | d by [facility]. It has not | | | | [...] | Performed at: 01 - Michelle Price [address] [place] [address], | REFERENCE [facility] | | [place] [id number] Industrial Relations Representative: Sarabjit Love MD, Phone: | [facility] | | [phone] | | + + + + + + + + | Performing | Address | City/State/Zipcode | Phone Number | | Organization | | | | + + + + + | RE[facility] | [address] | [place], [place] | [phone] | | [facility] | [facility] | [address] | | + + + + + [...] [address] | [place] | [phone] | | [facility] | | [address] | | | - LABORATORY | | [...] | | | | | | | Counts Include [facility] 09/19/18 at 1945, For 1 dose, | [...] | | | | | | | 6588-4843 Use NIGHT DOSE for | | | | | | | doses scheduled: HS, 3AM, | | | | | | | Nighttime 8917-7294, | | | | | | + [...]
--- OUTSIDE RECORDS SUMMARY | ~2020-03-21 | XMS | Encounter Summary ---
Demographics + + + | Address | [address] | | | [place] [address] | + + + | Home Phone [...] Samantha Ramos | ECON | [address] | | | | | [place] | | | | | [address] | | + + + + + Care Team Providers + +------+ + | Care Director Digital Analytics Name | Role | Phone | + [...] | | | | | diabetes | [place], [place] | floor | | | | | mellitus | [address] | [place], [place] | | | | | ([facility]) | Phone: | [phone] | | | | | Procedures | [phone] | Phone: | | | | | CONSULT TO | Fax: | [phone] | | | | | GI PROCEDURE | [phone] | Fax: | | | | | UNIT: EGD | | [phone] | + +--------+ + + + + Encounter Details +--------+ + + + + | Date | Type | Department | Care Team | Description | +--------+ + + + + | 08/16/ | Escalator Attendant | Digestive Health | Beth Mondragon, | Diabetic | | 2019 | | [facility] [address] | ANP [address] [facility] | gastroparesis | | | | [address] | [address] | associated with type | | | | Mailcode: Center | [place], [place] | 1 diabetes mellitus | | | | for Health and | [address] | ([facility]) (Primary Dx) | | | | [facility] 2 | [phone] | | | | | [place], [place] | | | | | | [address] | | | | | | [phone] | | | +--------+ + + + [...]
--- OUTSIDE RECORDS SUMMARY | ~2020-03-21 | XMS | Clinical Summary ---
Demographics + + + | Address | [address] Estrada | | | [place] [address] | + + + | Home Phone [...] [id number] | | | | | [address] | | + + + + + Care Team Providers + +------+ + | Care Scale And Skip Car Operator Name | Role | Phone | [...] | | | | | 4 (severe) ([facility]); | | | | | | Electrolyte [...] nephropathy | | | | | | ([facility]); CKD (chronic | | | | | | kidney disease) | | | | | | stage 4, GFR 15-29 | | | | | | ml/min ([facility]); | | | | | | Nephrotic range | | | | | | proteinuria | +--------+ + + + + | 02/27/ | Documentati | Nephrology | Kendrick | Christian (02/27/20) | | 2020 | on | | Alonzo Campos | | | | | | Urologist Physician | | +--------+ + + + + [...] Campos | | | | | | Urologist Physician | | +--------+ + + + + [...] | | | | | | disease ([facility]); | | | | | | Anemia of chronic | | | | | | renal failure, stage | | | | | | 3 (moderate) ([facility]); | | | | | | Community [...] nephropathy | | | | | | ([facility]); Anemia of | | | | | | chronic renal | | | | | | failure, stage 4 | | | | | | (severe) ([facility]); | | | | | | Metabolic acidosis, | | | | | | normal anion gap | | | | | | (NAG); Type 1 DM | | | | | | with CKD stage 4 and | | | | | | hypertension ([facility]); | | | | | | Essential | | | | | | hypertension, | | | | | | malignant; Fissure | | | | | | in skin of foot; CKD | | | | | | (chronic kidney | | | | | | disease), stage III | | | | | | ([facility]) | +--------+ + + + + | [...] | | | | | | mellitus ([facility]); | | | | | | Acute renal failure | | | | | | superimposed on | | | | | | stage 3 chronic | | | | | | kidney disease, | | | | | | unspecified acute | | | | | | renal failure type | | | | | | ([facility]); Diabetic | | | | | | gastroparesis ([facility]); | | | | | | 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 | | | | | | with type 1 | | | | | | diabetes mellitus, | | | | | | unspecified part of | | | | | | foot, unspecified | | | | | | ulcer stage ([facility]) | +--------+ + + + + from [...] 2020 | Visit | | [address] [facility] | | | | | | [facility] | | | | | | [address] | | | | | | | [...] Right: | COOK | | 07/14/ | [id number] | | 22-32 - [id number]: | | | [employer] | | 2020 | / | | Qty: 1 on 09/19/2018 by | | Ureter | - COOK | | | /[id number] | | Tc Mora MD at | | | | | | 43 | | [facility] | | | | | | | | [facility] | | | | | | [...] + | [facility] | [address] | [place] | [phone] | | [facility] | | [address] | | | - LABORATORY | | [...] ST. | [address] | [place] | [phone] | | [facility] | | [address] | | | - LABORATORY | | [...] 4.24 (H) | 0.70 - 1.30 | [facility] | | | | | mg/dL [...] mL/min/1.73m2 | [facility] | | | TUNISIAN | RATE,ESTIMATED | | MEDICAL | | | | mL/min/1.94s8Ewvo than | | CENTER - | | [...] + | [facility] | [address] | [place] | [phone] | | [facility] | | [address] | | | - LABORATORY | | [...] 4.32 (H) | 0.70 - 1.30 | [facility] | | | | | mg/dL | [facility] | | | | | | MEDICAL | | | | | | CENTER - | | | | | | LABORATORY | | + + + + + + | eGFR if not | 16 (L)Comment: | >=60 | [place] | | | | GLOMERULAR FILTRATION | mL/min/1.73m2 | [facility] | | | TUNISIAN | RATE,ESTIMATED | | MEDICAL | | | | mL/min/1.38l4Mtmg than | | CENTER - | | [...] [address] | [place] | [phone] | | [facility] | | [address] | | | - LABORATORY | | [...] difficile, | Toxigenic C. difficile | | [facility] | | | Interp | detected. [...] + | [facility] | [address] | [place] | [phone] | | [facility] | | [address] | | | - LABORATORY | | [...] | | | | | | [facility] | | | | | [...] | Eosinophils | | K/uL | . [facility] | | | | [...] ST. | [address] | [place], [place] | [phone] | | [facility] | | [address] | | | - LABORATORY | | [...] + | [facility] | [address] | [place] | [phone] | | [facility] | | [address] | | | - LABORATORY | | [...] ST. | [address] | [place], [place] | [phone] | | [facility] | | [address] | | | - LABORATORY | | [...] 246 (H)Comment: New | <100 pg/mL | [place] | | | | method in use as of | | [facility] | | | | November 22, 2018. [...] + | [facility] | [address] | [place] | [phone] | | [facility] | | [address] | | | - LABORATORY | | [...] + | [facility] | [address] | [place] | [phone] | | [facility] | | [address] | | | - LABORATORY | | [...] 4.39 (H) | 0.70 - 1.30 | [facility] | | | | | mg/dL | [facility] | | | | | | MEDICAL | | | | | | CENTER - | | | | | | LABORATORY | | + + + + + + | eGFR if not | 16 (L)Comment: | >=60 | [facility] | | | | GLOMERULAR FILTRATION | mL/min/1.73m2 | [facility] | | | TUNISIAN | RATE,ESTIMATED | | MEDICAL | | | | mL/min/1.22x4Sklj than | | CENTER - | | [...] 7.3 (L) | 8.7 - 10.4 | [facility] | | | | | mg/dL | [facility] | | | | | [...] + | [facility] | [address] | [place] | [phone] | | [facility] | | [address] | | | - LABORATORY | | [...] ST. | [address] | [place], [place] | [phone] | | [facility] | | [address] | | | - LABORATORY | | [...] [address] | [place] | [phone] | | [facility] | | [address] | | | - LABORATORY | | [...] [address] | [place] | [phone] | | [facility] | | [address] | | | - LABORATORY | | [...] | Performed at: 01 - Sebastien Price [address] [place] [address], | REFERENCE LAB | | [place], [place] [id number] Casing Blower: Sarabjit Love MD, Phone: | [facility] [place] | | [phone] | | + + + + + + + + | Performing | Address | City/State/Zipcode | Phone Number | | Organization | | | | + + + + + | REFERENCE LAB | [address] | [place], [place] | [phone] | | [facility] | Drive [facility] | [address] | | + + + + + [...] [address] | [place] | [phone] | | [facility] | | [address] | | | - LABORATORY | | [...] | REFERENCE LAB | | [place] [id number] Casing Blower: Sarabjit Love MD, Phone: | [place] [place] | | [phone] | | + + + + + + + + | Performing | Address | City/State/Zipcode | Phone Number | | Organization | | | | + + + + + | REFERENCE LAB | [address] | [place], [place] | [phone] | | [facility] | [place] | [address] | | + + + + + [...] + | Performed at: 01 - Sebastien Bra[address], | REFERENCE LAB | | [place], [place] [id number] Casing Blower: Sarabjit Love MD, Phone: | [place] [place] | | [phone] | | + + + + + + + + | Performing | Address | City/State/Zipcode | Phone Number | | Organization | | | | + + + + + | REFERENCE LAB | [address] | [place], [place] | [phone] | | [facility] | Drive [facility] | [address] | | + + + + + [...] Blood Cells | | Not | [facility] | | | | | Established | [...] + | [facility] | [address] | [place] | [phone] | | [facility] | | [address] | | | - LABORATORY | | [...] + | [facility] | [address] | [place] | [phone] | | [facility] | | [address] | | | - LABORATORY | | [...] [address] | [place] | [phone] | | [facility] | | [address] | | | - LABORATORY | | | | + + + + + Culture, MRSA (03/09/2020 2:57 PM PDT)Only the most recent of 2 results within the time mamta cshilling is included. + + + + + [...] + | [facility] | [address] | [place] | [phone] | | [facility] | | [address] | | | - LABORATORY | | [...] + | [facility] | [address] | [place] | [phone] | | [facility] | | [address] | | | - LABORATORY | | [...] [address] | [place] | [phone] | | [facility] | | [address] | | | - LABORATORY | | [...] + | [facility] | [address] | [place], [place] | [phone] | | [facility] | | [address] | | | - LABORATORY | | [...] [address] | [place] | [phone] | | [facility] | | [address] | | | - LABORATORY | | [...] | | | | | uIU/mL | [facility] | | | | | | [...] [address] | [place] | [phone] | | [facility] | | [address] | | | - LABORATORY | | [...] [address] | [place] | [phone] | | [facility] | | [address] | | | - LABORATORY | | [...] [address] | [place] | [phone] | | [facility] | | [address] | | | - LABORATORY | | [...] | | Total | | | [facility] | | | | | [...] [address] | [place] | [phone] | | [facility] | | [address] | | | - LABORATORY | | [...] [address] | [place] | [phone] | | [facility] | | [address] | | | - LABORATORY | | [...] | | | | CRISTINE HUDDLESTON MD ([id number]) | | | | | | on [...] - 1.030 | [facility] | | | [place], | | | [facility] | | [...] + | [facility] | [address] | [place] | [phone] | | [facility] | | [address] | | | - LABORATORY | | [...] ST. | [address] | [place], [place] | [phone] | | [facility] | | [address] | | | - LABORATORY | | [...] + | [facility] | [address] | [place] | [phone] | | [facility] | | [address] | | | - LABORATORY | | [...] ST. | [address] | [place], [place] | [phone] | | [facility] | | [address] | | | - LABORATORY | | [...] 1.001 - 1.030 | | | | [place], | | | | | | Urine [...] [address] | [place] | [phone] | | [facility] | | [address] | | | - LABORATORY | | [...] | | | | > 0.9 The [facility] | | | | | | recommends that a | | | | | | positive HCV antibody | | | | | | result be followed up | | | | | | with a HCV Nucleic Acid | | | | | | Amplification test | | | | | | ([id number]). | | | | + + + + + + + + | Specimen | + + | Blood | + + + + + | Narrative | Performed At | + + + | Performed at: 01 - [facility] [address], | REFERENCE LAB | | [place], [place] [id number] Casing Blower: Jerome Agudelo MD, Phone: | [place] | | [phone] | | + + + + + + + + | Performing | Address | City/State/Zipcode | Phone Number | | Organization | | | | + + + + + | REFERENCE LAB | [address] | [place], [place] | [phone] | | [facility] | [facility] | [address] | | + + + + + [...] major | | | tendons within the jujss-kj-uiok are grossly intact. | | + + [...] effusion.The major tendons within the | | lbcxt-xz-fubw are grossly intact.IMPRESSION: No evidence for osteomyelitis.Diffuse [...] | | |The major tendons within the xmocq-pi-gafr are grossly intact. | | | |IMPRESSION: [...] | | | | g/dL | [facility] | | | | | | MEDICAL | | | | | | CENTER - | | | | | | LABORATORY | | + + + + + + + + | Specimen | + + | Blood | + + + + + + + | Performing | Address | City/State/[facility] | Phone Number | | Organization | | | | + + + + + | [facility] | [address] | [place] | [phone] | | [facility] | | [address] | | | - LABORATORY | | [...] + + + + | Product | [id number] | | [facility] | | | Code | | | [facility] | | | | | | MEDICAL | | | | | | CENTER - | | | | | | BLOOD BANK | | + + + + + + | UNIT # | [id number] | | [facility] | | | | [...] + + + + | Blood | [id number] | | [facility] | | | Product [...] St | [place] | | | [facility] | | [address] | | | - BLOOD BANK | [...] + | [facility] | [address] | [place] | [phone] | | [facility] | | [address] | | | - LABORATORY | | [...] [address] | [place] | [phone] | | [facility] | | [address] | | | - LABORATORY | | [...] [address] | [place] | [phone] | | [facility] | | [address] | | | - LABORATORY | | [...] ST. | [address] | [place], [place] | [phone] | | [facility] | | [address] | | | - LABORATORY | | [...] [address] | [place] | [phone] | | [facility] | | [address] | | | - LABORATORY | | [...] + | [facility] | [address] | [place] | [phone] | | [facility] | | [address] | | | - LABORATORY | | [...] ST. | [address] | [place], [place] | [phone] | | [facility] | | [address] | | | - LABORATORY | | [...] St | [place] | | | [facility] | | [address] | | | - BLOOD BANK | [...] [address] | [place] | [phone] | | [facility] | | [address] | | | - LABORATORY | | [...] | | | | | mg/dL | [facility] | | | | | [...] + | [facility] | [address] | [place] | [phone] | | [facility] | | [address] | | | - LABORATORY | | [...] [address] | [place] | [phone] | | [facility] | | [address] | | | - LABORATORY | | [...] [address] | [place] | [phone] | | [facility] | | [address] | | | - LABORATORY | | [...] | coronavirus | SARS-CoV-2, RNA | | [facility] | | | 2 NAAT | (COVID-19) [...] ST. | [address] | [place], [place] | [phone] | | [facility] | | [address] | | | - LABORATORY | | [...] [address] | [place] | [phone] | | [facility] | | [address] | | | - LABORATORY | | [...] + | Performed at: 01 - [place] [place] [address], | REFERENCE LAB | | [place], [place] [id number] Casing Blower: Jerome Agudelo MD, Phone: | [facility] | | [phone] | | + + + + + + + + | Performing | Address | City/State/Zipcode | Phone Number | | Organization | | | | + + + + + | REFERENCE LAB | [address] | [place], [place] | [phone] | | [facility] | [place] | [address] | | + + + + + [...] ST. | [address] | [place], [place] | [phone] | | [facility] | | [address] | | | - LABORATORY | | [...] | | | | | | [employer] | | | | | [...] + | [facility] | [address] | [place] | [phone] | | [facility] | | [address] | | | - LABORATORY | | [...] ST. | [address] | [place], [place] | [phone] | | [facility] | | [address] | | | - LABORATORY | | [...] | [employer] | MODA | [id number] | | [phone] | | Medica | | MEDICAID HMO | HEALTH | | 018-Pr | 1 | | id | | | MDCD | | esent | | | | | | [place] | | | | | | + +--------+ +--------+ +---------+--------+ | [employer] | MODA | [id number] | | [phone] | | Medica | | MEDICAID HMO [...] | | al/Fam | | 1990 | [phone] | [place] | | | [place]ian | | | 1 (Home) | [address] | + +--------+ +--------+ + + | Brooks Marquez | Person | Self | [birth year] | [address] | | | al/Fam | | 1990 | [phone] | [place] | | | [place] | | | 1 (Home) | [address] | + +--------+ +--------+ + + Advance Directives + + + + + | Type | Date Recorded | Patient | Explanation | | | | Grants Director | | + + + + + | Power of | | | | | Agronomy Specialist | | | | + + + [...]
--- OUTSIDE RECORDS SUMMARY | ~2020-03-21 | XMS | Encounter Summary ---
Demographics + + + | Address | [address] | | | [place] [address] | + + + | Home Phone [...] Samantha Ramos | ECON | [address] # | | | | | [place] | | | | | [address] | | + + + + + Care Team Providers + +------+ + | Care Maintenance Services Dispatcher Name | Role | Phone [...] | | | | [facility] | [place], [place] | | | | | [address] | [address] | | | | | [place] | [phone] | | | | | [place], [place] | | | | | | [address] | | | | | | [phone] | | | +--------+ + + + [...] - [facility] | [address] | [place], [place] | | | [facility] | [address] | [address] | | | TESTS | | | | + + + + + | [facility] | [address] | [place], [place] | | | TESTS | [facility] | [address] | | + + + + + documented in this encounter Visit Diagnoses Not on filedocumented in this encounter"
--- OUTSIDE RECORDS SUMMARY | ~2020-03-21 | XMS | Encounter Summary ---
Demographics + + + | Address | [address] | | | [place] [address] | + + + | Home Phone [...] Samantha Ramos | ECON | [address] # | | | | | [place] | | | | | [address] | | + + + + + Care Team Providers + +------+ + | Care Registered Dietitian Name | Role | Phone | + [...] | | 2019 | | [facility] [address] | [address] | Review | | | | [address] | [place], [place] | | | | | Mailcode: Center | [address] | | | | | for Health and | [phone] | | | | | [place] [address] | | | | | | [place], [place] | | | | | | [address] | | | | | | [phone] | | | +--------+ + + + [...]
--- OUTSIDE RECORDS SUMMARY | ~2020-03-21 | XMS | Encounter Summary ---
Demographics + + + | Address | [address] | | | [place] [address] | + + + | Home Phone [...] Samantha Ramos | ECON | [address] # | | | | | [place] | | | | | [address] | | + + + + + Care Team Providers + +------+ + | Care Electronics System Mechanic Name | Role | Phone | [...] 2005 | Only | [address] | [phone] | | | | | Rd Mailcode: [id number] | | | | | | [place], [place] | | | | | | [address] | | | | | | [phone] | | | +--------+ + + + [...]
--- OUTSIDE RECORDS SUMMARY | ~2020-03-21 | XMS | Encounter Summary ---
Demographics + + + | Address | [address] [place] | | | [place] [address] | + + + | Home Phone [...] [place] | | | | | [address] | | + + + + + Care Team Providers + +------+ + | Care Special Education Kindergarten Teacher Name | Role | Phone | [...] + + | 02/18/ | Documentati | [facility] | Kendrick, | Results (02/15/20) | | 2020 | on | [place] | Alonzo Campos | | | | | [address] | Sidewalk Repairer | | | | | [address] [place] | | | | | | [address] | | | | | | [phone] | | | +--------+ + + + [...] 2019 | Visit | | [address] [facility] | | | | | | [address] [place] | | | | | | [address] | | | | | | | [...] 1.001 - 1.030 | | | | [place], | | | | | | Urine [...]
--- OUTSIDE RECORDS SUMMARY | ~2020-03-21 | XMS | Encounter Summary ---
Demographics + + + | Address | [address] | | | [place] [address] | + + + | Home Phone [...] Samantha Ramos | ECON | [address] # | | | | | [place] | | | | | [address] | | + + + + + Care Team Providers + +------+ + | Care Freight Brake Operator Name | Role | Phone | + +------+ + | Erich Yates PA-C | PCP | | + +------+ + Encounter Details +--------+ + + + + | Date | Type | Department | Care Team | Description | +--------+ + + + + | 01/05/ | Outside | UNKNOWN DEPARTMENT | Other, Faculty | | | 2020 | Records | [address] [facility] | [phone] | | | | | [address] | | | | | | [place], [place] | | | | | | [address] | | | +--------+ + + + [...]
--- OUTSIDE RECORDS SUMMARY | ~2020-03-21 | XMS | Encounter Summary ---
Demographics + + + | Address | [address] [place] | | | [place] [address] | + + + | Home Phone [...] [place] | | | | | [address] | | + + + + + Care Team Providers + +------+ + | Care File Drawer Finisher Name | Role | Phone | + +------+ + | Emmanuel Saavedra | PCP | | + +------+ + Reason for Visit + +--------+ + | Reason | Onset | Comments | | | Date | | + +--------+ + | Case Management | 03/20/ | specialized wheelchair/referral needed to wheelchair | | | 2019 | clinic | + +--------+ + Encounter Details +--------+ + + + + | Date | Type | Department | Care Team | Description | +--------+ + + + + | 03/20/ | Telephone | [facility] | Anne Neal, | Case Management | | 2019 | | MED CTR CASE | RN | (specialized | | | | MANAGEMENT [address] | | wheelchair/referral | | | | [place], | | needed to wheelchair | | | | [place] [address] | | clinic) | | | | [phone] | | | +--------+ + + + [...] this encounter Miscellaneous Notes Telephone Encounter - Anne Neal RN - 03/20/2020 2:36 PM PDTOutpatient Case Managem ent: Follow up about custom wheelchair. I called and spoke to Gia (mother/caregiver for Alin). I told her I had asked PCP se colbert weeks ago to please refer patient to Wheelchair clinic. So far there are no appointme nts noted in his chart for wheelchair clinic/PT clinic. Gia states that Alin has an a ppointment tomorrow with his PCP. I asked if she would remind PCP that he needs a referral to the wheelchair clinic. She stated she would do that. She states she is in regular commu nication with his [facility] bottle caser: Papito Slater: [phone]. I asked Gia if s he would mention to the CM that he needs a custom wheelchair. She will tell her. Gia states that Alin also needs an IPAD with a communication kajal. She needs to work with the CM to get that for Alin. I will call CM Ruma Slater again to talk about Alin's needs. Gia has my contact information and will call me as needed. Electronically signed by: Anne Neal RN 03/20/2020 2:44 PM PDT documented in this e ncounter Plan of Treatment +--------+---------+ + + + | Date | Type | Specialty | Care Team | Description | +--------+---------+ + + + | 05/07/ | Office | Nephrology | Winston Whitman MD | | | 2020 | Visit | | [address] [facility] | | | | | | [address] [place] | | | | | | [address] | | | | | | | | +--------+---------+ + + + documented as of this encounter Visit Diagnoses Not on filedocumented in this encounter"
--- OUTSIDE RECORDS SUMMARY | ~2020-03-21 | XMS | Encounter Summary ---
Demographics + + + | Address | [address] | | | [place] [address] | + + + | Home Phone [...] Samantha Ramos | ECON | [address] | | | | | [place] | | | | | [address] | | + + + + + Care Team Providers + +------+ + | Care Piano Assembler Name | Role | Phone | + +------+ + | Neir Mojica MD | PCP | | + +------+ + Encounter Details +--------+ + + + + | Date | Type | Department | Care Team | Description | +--------+ + + + + | 08/24/ | Document-Sc | UNKNOWN DEPARTMENT | Other, Faculty | | | 2012 | anned | [address] [facility] | [phone] | | | | | [address] | | | | | | [place], [place] | | | | | | [address] | | | +--------+ + + + [...]
--- OUTSIDE RECORDS SUMMARY | ~2020-03-21 | XMS | Encounter Summary ---
Demographics + + + | Address | [address] | | | [place] [address] | + + + | Home Phone [...] [address] | | | | | [address] | | + + + + + Care Team Providers + +------+ + | Care Furnace Feeder Name | Role | Phone | + +------+ + | Emmanuel Saavedra PCP | | + +------+ + Encounter Details +--------+ + + + + | Date | Type | Department | Care Team | Description | +--------+ + + + + | 02/18/ | Imaging | [facility] | Provider, | | | 2019 | Exam | [facility] | [address] | | | | | IMAGING [address] | [address] | | | | | [address] | [place] [address] | | | | | [place] [address] | | | | | | [phone] | | | +--------+ + + + [...] 2019 | Visit | | [address] [facility] | | | | | | [address] [place], [place] | | | | | | [address] | | | | | | | [...] documented in this encounter Results XR Chest 2 Vws (02/15/2020 7:10 PM [...]
--- OUTSIDE RECORDS SUMMARY | ~2020-03-21 | XMS | Encounter Summary ---
Demographics + + + | Address | [address] | | | [place] [address] | + + + | Home Phone [...] Samantha Ramos | ECON | [address] | | | | | [place] | | | | | [address] | | + + + + + Care Team Providers + +------+ + | Care Party Plan Sales Host/Hostess Name | Role | Phone | + +------+ + | Neri Mojica MD | PCP | | + +------+ + Encounter Details +--------+ + + + + | Date | Type | Department | Care Team | Description | +--------+ + + + + | 07/16/ | Documentati | Orthopaedics at | Neri Mcgarry, | | | 2005 | on | [address] | [address] | | | | | [address] | [address] | | | | | Mailcode: PV430 | [facility] [place] | | | | | [facility] | [address] | | | | | [place], [place] | [phone] | | | | | [address] | | | | | | [phone] | | | +--------+ + + + [...]
--- OUTSIDE RECORDS SUMMARY | ~2020-03-21 | XMS | Encounter Summary ---
Demographics + + + | Address | [address] | | | [place] [address] | + + + | Home Phone [...] Samantha Ramos | ECON | [address] | | | | | [place], [place] | | | | | [address] | | + + + + + Care Team Providers + +------+ + | Care Delivery Lead Name | Role | Phone | [...] as of this encounter Progress Notes Interface, Gas Engine Operator In - 04/25/2005 2:09 AM PDT [id number] 12/11/2004 12/11/2004 [id number] NAHOMY Durbin [facility] [address] [place], [place] [address] or December 11, 2004 Neri Mojica MD [address], [place] [address] RE: BROOKS MARQUEZ II MR #: [id number] Dear Dr. Mojica: I reviewed Brooks in [facility]ocrine Clinic today. This is his second visit our clinic, having established care here in September. To recap, he was diagnosed with type 1 diabetes in April 2002 and initially received his [facility]. He has been followed by yourself [...] at this present time, although I did elementary school counselor him that this would be optimal [...] months' time. Yours sincerely, Ashanti Roque M.D. Audiovisual Equipment Operator, Pediatric Endocrinology / [id number] / [id number] / [id number] / documented i n this encounter Plan of Treatment Not on filedocumented as of this encounter Visit Diagnoses Not on filedocumented in this encounter"
--- OUTSIDE RECORDS SUMMARY | ~2020-03-21 | XMS | Encounter Summary ---
Demographics + + + | Address | [address] | | | [place] [address] | + + + | Home Phone [...] [place] | | | | | [address] | | + + + + + Care Team Providers + +------+ + | Care Section Gang Name | Role | Phone | + +------+ + | Emmanuel Saavedra PCP | | + +------+ + Encounter Details +--------+ + + + + | Date | Type | Department | Care Team | Description | +--------+ + + + + | 03/04/ | Virtual | [facility] | Winston Whitman MD | CKD (chronic kidney | | 2020 | Office | NEPHROLOGY [place] | [address] [place] | disease) stage 4, | | | Visit | [address] [place] | [address] [place], [place] | GFR 15-29 ml/min | | | | [address] [place], [place] | [address] | ([facility]) (Primary Dx); | | | | [address] | | Anemia of chronic | | | | [phone] | | renal failure, stage | | | | | | 4 (severe) ([facility]); | | | | | | Electrolyte [...] mellitus | | | | | | ([facility]); Essential | | | | | | [...] evaluation by the Kidney transplant team in [place]. I sent him for a Pre-dialysis Options [...] RFP, CBC, uric acid, urinalysis, Urine total okkxbau-sr-zhdcqbbkye ratio before he comes back in 2 [...] STENT PLACEMENT; Surgeon: Tc Mora MD; Location: [facility] [place] Family History Problem Relation [...] file Gets together: Not on file Attends baptism service: Not on file Active member of [...] evaluation by the Kidney transplant team in [place]. I sent him for a Pre-dialysis Options [...] RFP, CBC, uric acid, urinalysis, Urine total gqjlrdu-vl-crtidfmgis ratio before he comes back in 2 months. More than 45 minutes of this 90-minute visit was spent in education and counseling. Thank you Dr Saavedra for the opportunity to see this patient in consult today. Please do no t hesitate to call me at any time with questions or concerns. Truly yours, Winston Whitman MD [facility] This exam was initially conducted via a secure 256-bit AES encrypted bidirectional video se ssion. You have chosen to receive care through the use of telemedicine. Telemedicine enables [facility] care providers at different locations to provide [...] 2019 | Visit | | [address] [facility] | | | | | | [address] [place], [place] | | | | | | [address] | | | | | | | | +--------+---------+ + + + documented as of this encounter Visit Diagnoses + + | Diagnosis | + + | CKD (chronic kidney disease) stage 4, GFR 15-29 ml/min ([facility]) - Primary Chronic kidney | | disease, Stage IV (severe) | + + | Anemia of chronic renal failure, stage 4 (severe) ([facility]) | + + | Electrolyte imbalance risk [...]
--- OUTSIDE RECORDS SUMMARY | ~2020-03-21 | XMS | Encounter Summary ---
Demographics + + + | Address | [address] | | | [place] [address] | + + + | Home Phone [...] [place] | | | | | [address] | | + + + + + Care Team Providers + +------+ + | Care Pressure Tester Name | Role | Phone | + +------+ + | Erich Yates | PCP | | + +------+ + Encounter Details +--------+ + + + + | Date | Type | Department | Care Team | Description | +--------+ + + + + | 01/11/ | Orders Only | [facility] | Winston Whitman MD | | | 2019 | | NEPRHOLOGY [place] | [address] | | | | | [address] | [address] [place], [place] | | | | | [address] [place], [place] | [address] | | | | | [address] | | | | | | [phone] | | | +--------+ + + + [...] 2019 | Visit | | [address] [facility] | | | | | | [address] [place] | | | | | | [address] | | | | | | | [...]
--- OUTSIDE RECORDS SUMMARY | ~2020-03-21 | XMS | Encounter Summary ---
Demographics + + + | Address | [address] | | | [place] [address] | + + + | Home Phone [...] [place] | | | | | [address] | | + + + + + Care Team Providers + +------+ + | Care Emergency Response Officer Name | Role | Phone | + +------+ + | Erich Yates | PCP | | + +------+ + Encounter Details +--------+ + + + + | Date | Type | Department | Care Team | Description | +--------+ + + + + | 02/01/ | Abstract | [facility] [place] | Divya, | | | 2018 | | GASTROENTEROLOGY | MD [address] | | | | | [address] [facility] | [facility] Wendy. | | | | | [address] [place] | [place] [address] | | | | | [address] | | | | | | [phone] | | | +--------+ + + + [...] | | | | | | [address] [place], [place] | | | | | | [address] | | | | | | | [...] - 1.03 | EXTERNAL | | | [place], | | | LAB | | | [...]
--- OUTSIDE RECORDS SUMMARY | ~2020-03-21 | XMS | Encounter Summary ---
Demographics + + + | Address | [address] | | | [place] [address] | + + + | Home Phone [...] Samantha Ramos | ECON | [address] # | | | | | [place] | | | | | [address] | | + + + + + Care Team Providers + +------+ + | Care Tail Worker Name | Role | Phone | [...] | Only | [address] | MAIL DISTRIBUTION SCHEME EXAMINER [address] | | | | | [address] | [address] | | | | | Mailcode: PV430 | [place] [address] | | | | | [facility] | [phone] | | | | | [place], [place] | | | | | | [address] | | | | | | [phone] | | | +--------+ + + + [...]
--- OUTSIDE RECORDS SUMMARY | ~2020-03-21 | XMS | Encounter Summary ---
Demographics + + + | Address | [address] | | | [place] [address] | + + + | Home Phone [...] [place] | | | | | [address] | | + + + + + Care Team Providers + +------+ + | Care Extrusion Die Corrector Name | Role | Phone | + +------+ + | Erich Yates | PCP | | + +------+ + Encounter Details +--------+ + + + + | Date | Type | Department | Care Team | Description | +--------+ + + + + | 02/28/ | Documentati | [facility] [place] | [facility], | | | 2019 | on | GASTROENTEROLOGY | DANA [address] | | | | | [address] | [address] | | | | | [address] [place], [place] | [place], [place] | | | | | [address] | [address] | | | | | [phone] | | | +--------+ + + + [...] 8:47 AM PDTReceived notice from [facility] whe re patient was referred. [...] 2020 | Visit | | [address] [facility] | | | | | | [address] [place] | | | | | | [address] | | | | | | | | +--------+---------+ + + + documented as of this encounter Visit Diagnoses Not on filedocumented in this encounter"
--- OUTSIDE RECORDS SUMMARY | ~2020-03-21 | XMS | Encounter Summary ---
Demographics + + + | Address | [address] | | | [place] [address] | + + + | Home Phone [...] Samantha Ramos | ECON | [address] # | | | | | [place] | | | | | [address] | | + + + + + Care Team Providers + +------+ + | Care Noise Tester Name | Role | Phone | [...] | | | [facility] | [place] [address] | | | | | [address] | | | | | | [place] | | | | | | [place], [place] | | | | | | [address] | | | | | | [phone] | | | +--------+ + + + [...]
--- OUTSIDE RECORDS SUMMARY | ~2020-03-21 | XMS | Encounter Summary ---
Demographics + + + | Address | [address] | | | [place] [address] | + + + | Home Phone [...] [address] | | | | | [address] [address] | | | | | [address] | | + + + + + Care Team Providers + +------+ + | Care Direct Support Staff Name | Role | Phone | + +------+ + | Erich Yates | PCP | | + +------+ + Reason for Visit + +--------+ + | Reason | Onset | Comments | | | Date | | + +--------+ + | Referral | 03/13/ | | | | 2018 | | + +--------+ + Encounter Details +--------+ + + + + | Date | Type | Department | Care Team | Description | +--------+ + + + + | 03/13/ | Telephone | [facility] | [facility], | [facility] | | 2019 | | GASTROENTEROLOGY | DANA [address] | | | | | [address] | [address] | | | | | [address] [place], [place] | [place], [place] | | | | | [address] | [address] | | | | | [phone] | | | +--------+ + + + [...] Telephone Encounter - Kay Sterling CMA - 03/14/2019 9:44 AM PDTSpoke with jo-ann Singh he said she wasn't happy with [facility] from speaking with them on the phone. She also s aid this would be like starting from the beginning and they would have to have a consult bef ore anything else would be done, told her that the same thing would happen with [facility]. Told h er that we don't usually send patient's to GI specialist in [place], and [employer] does not cover G I in [place]. Suggested she call her insurance and see if they have a GI specialist that would be covered other than at [facility]. But explained it would be the same thing as starting over [facility]. Told her that since everything is in order that maybe best to stay with [facility]. She is going to call insurance. She will get back to me if there is anything el se we can do. elep hugh Encounter - Hanna Scott - 03/13/2019 4:29 PM PDTPatient's mother Samantha called i n, she says that she thinks it is a mistake that we referred patient to [facility], kristina Nice said she was going to refer patient to [facility]; The mother added a side note that jigna jeffrey has lost another 5 pounds so this is becoming urgent she says, and also that she WILL NOT take her son to [facility]. Patient than called back and said she had some answers as to why [facility] was not in the questi on and she said that [facility] will not accept her son because he is more than 90 miles away so t hat because of the demographic of the scenario they won't accept him as a new patient. . So she believes that Arlet mentioned a GI specialist in [place] but she can't remember who it was. So I let her know that Arlet is out until March 26 she said well he can't wait until then so I will find another doctor who can help while Arlet is out. documented in this encounter Plan of Treatment +--------+---------+ + + + | Date | Type | Specialty | Care Team | Description | +--------+---------+ + + + | 05/07/ | Office | Nephrology | Winston Whitman MD | | | 2020 | Visit | | [address] [facility] | | | | | | [address] [place] | | | | | | [address] | | | | | | | | +--------+---------+ + + + documented as of this encounter Visit Diagnoses Not on filedocumented in this encounter"
--- OUTSIDE RECORDS SUMMARY | ~2020-03-21 | XMS | Encounter Summary ---
Demographics + + + | Address | [address] | | | [place] [address] | + + + | Home Phone [...] Samantha Ramos | ECON | [address] # | | | | | [place] | | | | | [address] | | + + + + + Care Team Providers + +------+ + | Care Telecommunications Repairer Name | Role | Phone | [...] Center at [facility] [address] | [address] | Review | | | | [address] | [address] | | | | | Mailcode: Center | [place], [place] | | | | | [facility] and | [address] | | | | | [facility] | [phone] | | | | | [place], [place] | | | | | | [address] | | | | | | [phone] | | | +--------+ + + + [...]
--- OUTSIDE RECORDS SUMMARY | ~2020-03-21 | XMS | Encounter Summary ---
Demographics + + + | Address | [address] | | | [place] [address] | + + + | Home Phone | | + + + | Preferred Language | Unknown | + + + | Marital Status | Single | + + + | Muslim Affiliation | NON | + + + [...] Samantha Ramos | ECON | [address] # | | | | | [place] | | | | | [address] | | + + + + + Care Team Providers + +------+ + | Care Pushcart Peddler Name | Role | Phone | + [...] | | | | | gastroparesi | [address] [facility] | | | | | | s associated | [address] | | | | | | with type [address] | Rd | | | | | | diabetes | [place], [place] | | | | | | mellitus | [address] | | | | | | ([facility]) | Phone: | | | | | | Procedures | [phone] | | | | | | NM GASTRIC | Fax: | | | | | | EMPTYING | [phone] | | | | | | STUDY [...] | | | | | diabetes | [place], [place] | floor | | | | | mellitus | [address] | [place], [place] | | | | | ([facility]) | Phone: | [address] | | | | | Procedures | [phone] | Phone: | | | | | CONSULT TO | Fax: | [phone] | | | | | GI PROCEDURE | [phone] | Fax: | | | | | UNIT: EGD | | [phone] | + +--------+ + + + + Encounter Details +--------+ + + + + | Date | Type | Department | Care Team | Description | +--------+ + + + + | 07/04/ | Book Or Script Editor | Digestive Health | Neri Steven MD | Diabetic | | 2019 | | Center at [facility] [address] | [address] | gastroparesis | | | | [address] | [address] [place], | associated with type | | | | Mailcode: [place] | [place] [address] | 1 diabetes mellitus | | | | for Health and | [phone] | ([facility]) (Primary Dx) | | | | Healing, [address] | | | | | | [place], [place] | | | | | | [address] | | | | | | [phone] | | | +--------+ + + + [...] mellitus | | | | | | ([facility]) | | + +---------+--------+ + + documented as of this encounter Visit Diagnoses + + | Diagnosis | + + | Diabetic gastroparesis associated with type 1 diabetes mellitus (HCC) - Primary | + + documented in this encounter"
--- OUTSIDE RECORDS SUMMARY | ~2020-03-21 | XMS | Encounter Summary ---
Demographics + + + | Address | [address] | | | [place] [address] | + + + | Home Phone [...] Samantha Ramos | ECON | [address] # | | | | | [place] | | | | | [address] | | + + + + + Care Team Providers + +------+ + | Care Regional Education Manager Name | Role | Phone | [...] [address] | | | | | [place], [place] | [place], [place] | | | | | [address] | [address] | | | | | [phone] | [phone] | | | | | | | [...] | [employer]/ | | | | | [facility] | | | | | | [employer]. | | | | + + + + + + + + | Specimen | + + | | + + + + + + + | Performing | Address | City/State/Zipcode | Phone Number | | Organization | | | | + + + + + | [facility] | [address] | [place] [address] | | | LABORATORY | | | [...] [place] | | | | | | [facility]. | | | | + + + + + + + + | Specimen | + + | | + + + + + + + | Performing | Address | City/State/Zipcode | Phone Number | | Organization | | | | + + + + + | [facility] | [address] | [place] [address] | | | LABORATORY | | | | + + + + + documented in this encounter Visit Diagnoses Not on filedocumented in this encounter"
--- OUTSIDE RECORDS SUMMARY | ~2020-03-21 | XMS | Encounter Summary ---
Demographics + + + | Address | [address] [place] | | | [place] [address] | + + + | Home Phone [...] [id number] | | | | | [address] | | + + + + + Care Team Providers + +------+ + | Care Composite Mechanic Name | Role | Phone | [...] | Services | Diabetic | Willard | [place] | | | Required | | ulcer of | MD Bernadette | [address] | | | | | left foot | [address] | [address] [place] | | | | | associated | [place] | [place] | | | | | with type 1 | [place] | [address] | | | | | diabetes | [phone] | Phone: | | | | | mellitus, | Phone: | [phone] | | | | | unspecified | [phone] | Fax: | | | | | part of | Fax: | [phone] | | | | | foot, | [phone] | | | | | | unspecified | | | | | | | ulcer stage | | | | | | | ([facility]) | | | | | [...] + + | 01/05/ | Hospital | [facility] | Erika Allison MD | Generalized weakness | | 2019 - | Encounter | [facility] | [address] | (Primary Dx); | | | | [address] [place] | [place] | Diabetic | | 01/09/ | | [place] [address] | [phone] | ketoacidosis without | | 2019 | | [phone] | | coma associated | | | | | Willard Aldrich | with type 1 diabetes | | | | | MD Bernadette [address] | mellitus (HCC); | | | | | [address] [place] | Acute renal failure | | | | | [place] [address] | superimposed on | | | | | [phone] | stage 3 chronic | | | | | | kidney disease, | | | | | | unspecified acute | | | | | | renal failure type | | | | | | ([facility]); Diabetic | | | | | | gastroparesis ([facility]); | | | | | | 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 | | | | | | with type 1 | | | | | | diabetes mellitus, | | | | | | unspecified part of | | | | | | foot, unspecified | | | | | | ulcer stage ([facility]) | +--------+ + + + [...] documented as of this encounter Discharge Summaries Valdemar, Willard Bernadette, MD - 01/10/2020 10:55 AM PDTFormatting of this note might be differen t from the original. [facility] [address] HOSPITALIST DISCHARGE SUMMARY Pt. Name/Age/: Brooks Marquez [...] III, p/w Diarrhe a and AMS from [facility], found to have DKA and Acute [...] DISPOSITION AND DISCHARGE INSTRUCTIONS: Follow-up Information Emmanuel aSavedra. Schedule an appointment as soon as possible for a visit in 1 week. Specialty: Family Medicine Why: hospital follow up Contact information: [address] [place] [address] Discharge to home with family Home health ordered on discharge for PT, wound care, and medication management Condition: Patient being discharged with condition improved Diet: consistent carb diet Greater than 30 minutes were spent on discharge and coordination of post-hospital care. Electronically signed by: Willard Aldrich MD, 01/10/2020 10:55 AM [facility] Reference. This is NOT part of the [...] is improved today with resolution of symptoms th Worse with recurrence of symptoms requiring further testing Portions of this chart may have been created with [employer] voice recognition software. Occasi onal wrong-word or [...] sick with another illness Date Last Reviewed: 03/26/201619996280-2133 [employer]. [address] [place] [address], [place] [address]. All righ ts reserved. This information is [...] flavors available): 8 ounces per day ? Hickory Fresh Yogurt (many flavors available): 6 ounces per day AttachmentsThe following attachments cannot be sent through Care Everywhere.Adult, Pneumoni a (Greek)documented in this encounter Medications at Time of [...] skin nightly. | | | 20 | 0 | | 100 units/mL | | | [...] daily. | | | | 0 | | [...] by mouth | | 0 | | 05/27/202 | | (ZANTAC) 150 mg | Daily. | | | | 0 | | tablet | | | | | | + + + +---------+ + + documented as of this encounter Progress Notes Willard Aldrich MD - 01/09/2020 10:22 AM PDTFormatting of this note might be differen t from the original. [place] HOSPITALIST PROGRESS NOTE Patient: Brooks Marquez : 1990: Age: 29 y.o. MedRec: [id number] PCP: Emmanuel Saavedra Admission date: 01/06/2020 Hospital [...] III, p/w Diarrhe a and AMS from [facility], found to have DKA and Acute [...] abx Willard Aldrich MD 01/09/2020 10:22 AM [facility] Subjective CC Continued nausea without vomiting, [...] + KCL 20) infusion Intravenous PRN Yo Gonazles MD Stopped at 01/07/20 0218 doxycycline (VIBRAMYCIN) 100 mg in sodium chloride 0.9% 100 mL IVPB 100 mg Intravenous 2 times per day Yo Gonzales MD 100 mL/hr at 01/08/20 2141 100 mg at 01/08/20 2141 famotidine (PEPCID) tablet 20 mg 20 mg Oral Daily Nelson Varghese PharmD 20 mg at 1014 heparin 5,000 [...] Units Subcutaneous Nightl y Willard Aldrich MD 6 Units at 01/08/202155 insulin lispro (humaLOG KWIKPEN) injection (pen) 0-6 Units 0-6 Units Subcutaneous 4x D aily and HS Erika Allison MD 1 Units at 01/08/208 labetalol (TRANDATE) 5 mg/mL injection 10 mg 10 mg Intravenous Q4H PRN Yo Gonzales MD 10 mg at 01/09/20 0348 lactobacillus GG (CULTURELLE) capsule 1 capsule 1 capsule Oral BID Maddie Altamirano, PharmD 1 capsule at 01/09/20 1014 loperamide (IMODIUM) capsule 2 mg 2 mg Oral Q3H PRN Erika Allison MD 2 mg at 2125 melatonin tablet 3 mg 3 mg Oral [...] 10% Hematology and anemia Recent Labs Lab 01/09/20 0440 01/08/20 0444 01/07/20 0442 WBC 5.7 7.8 11.8* HGB 8.2* 8.2* 8.3* HCT 25.5* 25.4* 25.3* PLT 173 192 135* NEUPCT 56.5 64.6 77.5 No results for input(s): PROTIME, INR, PTT in the last 168 hours. Recent Labs Lab 01/06/20 0804 IRON 84 TIBC 153* PCTSAT 55.0 FERRITIN 480* [id number] 1,885* FOLATE 2.0* Inflammatory markers Recent Labs Lab 01/07/2044101/06/20 0328 LACTATE -- 0.9 PROCALCITONI 1.33* 1.15* Chemistry Recent Labs Lab 01/09/2043901/08/2044301/07/2044101/06/20 032 GLU 143* 122* 132* < > 612* [...] this interval not displayed. Recent Labs Lab 01/09/2043901/08/2044301/07/2044101/07/20 0020 MG 1.7 1.7 1.8 1.9 PHOS -- 5.3* 6.1* 6.2* No results for input(s): AMYLASE, LIPASE in the last 168 hours. No results for input(s): TRIG, CHOL, HDL, LDL in the last 168 hours. No results for input(s): AMMONIA in the last 168 hours. Cardiology & Digoxin Recent Labs Lab 01/06/20 032 TROPONIN 0.01 ABG No results for input(s): PHART, PO2ART, TRE9IYE, VOO3TSZ, BEART, L6AMDKQS in the last 168 h ours. Recent [...] Date/Time [facility] STAT instructions for COVID-19 tracking [[id number]] Collected: 01/07/20 145 Order Status: Canceled Lab Status: No result Updated: 01/07/20 145 Specimen: Tissue from Nasopharynx Coronavirus (COVID-19) NAAT [[id number]] (Normal) Collected: 01/07/20 1447 Order Status: Completed Lab Status: Final result Updated: 01/07/20 190 Specimen: Tissue from Nasopharynx SARS coronavirus 2 RNA Not Detected Comment: See Scanned Report [facility] STAT instructions for COVID-19 tracking [[id number]] Collected: 01/07/20 1447 Order Status: Completed Lab Status: Final result Updated: 01/07/20 190 Specimen: Tissue from Nasopharynx [facility] COVID STAT instruction done Stool Pathogens, NAAT [[id number]] (Normal) Collected: 01/06/20 042 Order Status: Completed Lab Status: Final result Updated: 01/06/20 0816 Specimen: Stool Campylobacter, NAAT Not Detected Salmonella, NAAT Not Detected Shigella NAAT Not Detected Vibrio, NAAT Not Detected Yersinia enterocolitica, NAAT Not Detected Shigatoxin 1 Not Detected Shigatoxin 2 Not Detected Clostridioides difficle NAAT reflex to Tox Ag [[id number]] Collected: 01/06/20 0429 Order Status: Completed Lab Status: Final result Updated: 01/06/20 0705 Specimen: Stool Narrative: The following orders were created for panel order Clostridioides difficle NAAT reflex to T ox Ag. Procedure Abnormality Status --------- ------ Clostridioides difficile...[[id number]] Final result Please view results for these tests on the individual orders. Clostridioides difficile NAAT Reflex [[id number]] Collected: 01/06/20428 Order Status: Completed Lab Status: Final result Updated: 01/06/20 07 Specimen: Stool C. difficile, Interp Negative Comment: No Toxigenic C. difficile detected. Consider other causes of Diarrhea. Repeat te sting should not be performed within 7 days. C. difficile, NAAT Negative Fecal leukocytes [[id number]] (Normal) Collected: 01/06/20427 Order Status: Completed Lab Status: Final result Updated: 01/06/20 0504 Specimen: Stool Lactoferrin, Qual Negative Culture, Urine [[id number]] (Normal) Collected: 01/06/20427 Order Status: Completed Lab Status: Final result Updated: 01/08/20 1209 Specimen: Urine, Unspecified Source Culture No Growth Culture, Blood [[id number]] Collected: 01/06/20 0339 Order Status: Completed Lab Status: Preliminary result Updated: 01/09/20 044 Specimen: Peripheral Blood Culture No growth: Monitored continually by instrument for 5 days Culture, Blood [[id number]] Collected: 01/06/20 0329 Order Status: Completed Lab Status: Preliminary result Updated: 01/09/20 044 Specimen: Peripheral Blood Culture No growth: Monitored continually by instrument for 5 days Culture, MRSA [[id number]] (Normal) Collected: 01/06/20 0255 Order Status: Completed Lab Status: Final result Updated: 01/07/20 0742 Specimen: Body Fluid from Nares Culture Negative for MRSA by chromogenic agar method. Culture, MRSA [[id number]] Order Status: Canceled Lab Status: No result Specimen: Tissue from Nares Culture, MRSA [[id number]] Order Status: Canceled Lab Status: No result [...] this chart may have been created with [employer] voice recognition software. Occasi onal wrong-word or [...] obtained from: X Verbal interview assisted by Nika who is a reliable historian (this person manages medications) X Patient not interviewed or unable to supply information due to: Mom helps with medications X Patient/family member provided A CURRENT MEDICATION LIST and MEDICATION BOTTLES X Doctor's office: [facility] X Pharmacy list names: [facility] ([facility]) X Outside Information Vaccines up to date? 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 Provider furosemide (LASIX) 40 mg tablet Take 40 mg by mouth 2 times daily. Taking Historical Prov ideMD samuel GLUCAGON EMERGENCY 1 MG injection Inject 1 mg into the muscle once. Taking Historical Pro videMD samuel HYDROcodone-acetaminophen (NORCO) 10-325 mg per tablet Take 1 tablet by mouth 4 times kayeligh y. Taking Historical ProviderMD hyoscyamine (LEVSIN) 0.125 [...] by mouth 2 times daily. Taking Hi storical Provider, ondansetron (ZOFRAN ODT) 8 mg disintegrating tablet Take 8 mg by mouth every 8 hours as ne eded for Nausea. Taking Historical Provider, pregabalin (LYRICA) 100 mg capsule Take 100 mg by mouth 3 times daily as needed. For pain Taking Emmanuel Saavedra raNITIdine (ZANTAC) 150 mg tablet Take 150 mg by mouth Daily. Taking Historical Provider, Medication review performed and electronically signed by Kay Cleary, Associate Professor Of Sociology 01/08/2020 1:40 PM Reviewed by Mariama Saavedra, PharmD 01/08/2020 3:02 PM erry, Willard luna MD - 01/08/2020 7:52 AM PDTFormatting of this note might be different from the origi nal. [place] HOSPITALIST PROGRESS NOTE Patient: Brooks Marquez : 1990: Age: 29 y.o. MedRec: [id number] PCP: Emmanuel Saavedra Admission date: 01/06/2020 Hospital [...] III, p/w Diarrhe a and AMS from [facility], found to have DKA and Acute [...] inpatient Willard Aldrich MD 01/08/2020 7:52 AM [facility] Subjective CC Some nausea, mid epigastric [...] Yo Gonzales MD 100 mL/hr at 01/07/20 204 100 mg at 01/07/20 204 famotidine (PEPCID) injection 20 mg 20 mg Intravenous Daily Antonino Saavedra, Theresa 20 mg at 01/07/20 0828 heparin 5,000 units/mL injection 5,000 Units 5,000 Units Subcutaneous 2 times per day Erika Allison MD 5,000 Units at 01/07/202054 HYDROcodone-acetaminophen (NORCO) 5-325 mg per tablet 1-2 [...] PRN Erika Allison MD 2 mg at 2126 melatonin tablet 3 mg 3 mg Oral Nightly PRN Erika Allison MD metoprolol tartrate (LOPRESSOR) tablet 50 mg 50 mg Oral BID Yo Gonzales MD 50 m g at 01/07/20 1713 naloxone (NARCAN) 0.4 mg/mL injection 0.4 mg 0.4 mg Intravenous PRN Erika Allison MD Current Infusions: dextrose 10% Hematology and anemia Recent Labs Lab 01/08/2044301/07/2044101/06/20 0328 WBC 7.8 11.8* 18.7* HGB 8.2* 8.3* 7.9* HCT 25.4* 25.3* 25.9* PLT 192 135* 219 NEUPCT 64.6 77.5 79.6 No results for input(s): PROTIME, INR, PTT in the last 168 hours. Recent Labs Lab 01/06/20 0804 IRON 84 TIBC 153* PCTSAT 55.0 FERRITIN 480* [id number] 1,885* FOLATE 2.0* Inflammatory markers Recent Labs [...] ABG No results for input(s): PHART, PO2ART, TRT1GLL, OFG8YVV, BEART, A4YYFQNJ in the last 168 h ours. Recent [...] Recent Labs Lab 01/08/20 0607 01/07/20 2338 01/07/202025 01/07/20 1830 01/07/20 1707 01/07/20 1310 POCGLU 113* 138* 96 70 60* 84 Micro results more choices using dot micro (below is last 7 days) Microbiology Results (Last 7) Date with Culture/Sensitivity) Procedure Component Value Units Date/Time [facility] STAT instructions for COVID-19 tracking [[id number]] Collected: 01/07/20 145 Order Status: Canceled Lab Status: No result Updated: 01/07/201451 Specimen: Tissue from Nasopharynx Coronavirus (COVID-19) NAAT [[id number]] (Normal) Collected: 01/07/201446 Order Status: Completed Lab Status: Final result Updated: 01/07/201902 Specimen: Tissue from Nasopharynx SARS coronavirus 2 RNA Not Detected Comment: See Scanned Report [facility] STAT instructions for COVID-19 tracking [[id number]] Collected: 01/07/201446 Order Status: Completed Lab Status: Final result Updated: 01/07/201902 Specimen: Tissue from Nasopharynx [facility] COVID STAT instruction done Stool Pathogens, NAAT [[id number]] (Normal) Collected: 01/06/20428 Order Status: Completed Lab Status: Final result Updated: 01/06/20 0816 Specimen: Stool Campylobacter, NAAT Not Detected Salmonella, NAAT Not Detected Shigella NAAT Not Detected Vibrio, NAAT Not Detected Yersinia enterocolitica, NAAT Not Detected Shigatoxin 1 Not Detected Shigatoxin 2 Not Detected Clostridioides difficle NAAT reflex to Tox Ag [[id number]] Collected: 01/06/20428 Order Status: Completed Lab Status: Final result Updated: 01/06/20 0705 Specimen: Stool Narrative: The following orders were created for panel order Clostridioides difficle NAAT reflex to T ox Ag. Procedure Abnormality Status --------- ------ Clostridioides difficile...[[id number]] Final result Please view results for these tests on the individual orders. Clostridioides difficile NAAT Reflex [[id number]] Collected: 01/06/20428 Order Status: Completed Lab Status: Final result Updated: 01/06/20 0705 Specimen: Stool C. difficile, Interp Negative Comment: No Toxigenic C. difficile detected. Consider other causes of Diarrhea. Repeat te sting should not be performed within 7 days. C. difficile, NAAT Negative Fecal leukocytes [[id number]] (Normal) Collected: 01/06/20427 Order Status: Completed Lab Status: Final result Updated: 01/06/20 0504 Specimen: Stool Lactoferrin, Qual Negative Culture, Urine [[id number]] (Normal) Collected: 01/06/20427 Order Status: Completed Lab Status: Preliminary result Updated: 01/07/20 0832 Specimen: Urine, Unspecified Source Culture No growth to date Culture, Blood [[id number]] Collected: 01/06/20 0339 Order Status: Completed Lab Status: Preliminary result Updated: 01/06/20 164 Specimen: Peripheral Blood Culture No growth: Monitored continually by instrument for 5 days Culture, Blood [[id number]] Collected: 01/06/20 0329 Order Status: Completed Lab Status: Preliminary result Updated: 01/06/20 1641 Specimen: Peripheral Blood Culture No growth: Monitored continually by instrument for 5 days Culture, MRSA [[id number]] (Normal) Collected: 01/06/20 0255 Order Status: Completed Lab Status: Final result Updated: 01/07/20 0742 Specimen: Body Fluid from Nares Culture Negative for MRSA by chromogenic agar method. Culture, MRSA [[id number]] Order Status: Canceled Lab Status: No result Specimen: Tissue from Nares Culture, MRSA [[id number]] Order Status: Canceled Lab Status: No result [...] A p reliminary report was sent by [facility] with no significant discrepancy on 01/06/2020 4 [...] this chart may have been created with [employer] voice recognition software. Occasi onal wrong-word or [...] Neumann MD - 01/07/2020 8:12 AM PDT [facility] Adult Hospitalist Progress Note Hospital Day: 1 Patient Summary: Briefly, 29-year-old male with an extensive past medical history most significant for type 1 diabetes mellitus complicated with gastroparesis right BKA and chronic left foot ulc er and CKD stage III who presented initially to [facility] with a chief complaint of di arrhea and confusion transferred to [facility] ICU for DKA and acute on [...] Yo Gonzales MD 8:12 AM 01/07/2020 Antonino Acuña PharmD - 01/06/2020 5:16 AM PDT . [...] 01/06/2020 5:16 AM documented in this encounter H&P Notes Roderick Flannery RN - 01/08/2020 12:53 PM PDTStill has some nausea from this am, xtra dose o f zofran given. Blood glucose good,160's. One dose of prn labetalol give for persistent, sbp > 150. Rx x 1 for c/o of generalized aches & pain. Pt apears listless but does call out kajal ropriately. Pt to transfer [id number] med/surg. Report called to receiving RN.Electronically si gned by Roderick Flannery RN at 01/08/2020 12:58 PM Erika Lenz MD - 01/06/2020 1:43 AM PDT HISTORY AND PHYSICAL EXAMINATION Pt. Name/Age/: Brooks Marquez 29 y.o. 1990 Date of admission: (Not on file) Admitting Physician: Erika Allison MD Primary Care Physician: Erich Yates History taken from: patient, past medical records and ER staff Chief Complaint/Reason for Visit: Transferred from [facility] for DKA and ARF History of Present Illness: 29yoM w/ type I DM c/b gastroparesis, CKD III, R BKA, and chronic L foot ulcer, who present ed to [facility] for diarrhea and AMS. Patient was apprently Kussmaul breathing, hypothermic, and visibly dehydrated. He was found to be in DKA and was given 2L NS and started on an ins ulin gtt. He was also given vanc/CTX for possible UTI. Due to his renal failure, he was tr ansferred to our facility for nephrology backup. On arrival, patient is sedated. Per report, he received ativan prior to transport due to a gitation. He is not able to provide any additional history for me. Labs from [facility]: WBC: 19.1>9.3<253 BMP: 130/6.0/96/2(AG38)/67/4.14 Glucose 711 LFTs WNL Lactic 1.7 UA w/ 30WBC, neg nitrite and leuk esterase EKG sinus tach@107 QTc 504 CXR: unremarkable Past Medical History: Past Medical History: Diagnosis Date Abdominal [...] STENT PLACEMENT; Surgeon: Tc Mora MD; Location: [facility] OR Allergies: Allergies Allergen Reactions Codeine Nausea And Vomiting Reaction: Projectile vomit Current Medications: No current facility-administered medications for this encounter. Current Outpatient Medications Medication Sig Dispense Refill dicyclomine (BENTYL) 20 [...] mg by mouth 2 times daily. Family History: Family History Problem Relation Age [...] cancer Maternal Grandfather Social History: Social History Socioeconomic History Marital [...] file Gets together: Not on file Attends scientology service: Not on file Active member of [...] History Narrative Not on file Review of Systems: ROS limited by patient sedation. Exam: Vital Signs on Arrival: on Most Recent Vital Signs: on Admission Weight: BMI: There is no height or weight on file to calculate BMI. Physical Examination: General: Somnolent but arousable for short periods, breathing comfortably HEENT: Dry MM Cardiovascular: Tachy and regular S1S2, no murmur Respiratory: CTAB, no crackles or wheeze Abdomen: S NT ND BS normaoctive Genitourinary: Camarena with about 20cc of cloudy yellow urine Extremities: R BKA, no edema Skin: Dry, flaky skin. Chronic ulcer on the ball of the L foot. No surrounding erythema, induration, purulence. Neurological: Moving all extremities Psychiatric: somnolent Diagnostic Studies: Available Labs and Images were reviewed personally. Significant resul ts and findings are addressed below or in the Assessment and Plan. Code Status: Presumed FULL Assessment and Plan: 1. DKA--Will continue aggressive IVF hydration and insulin gtt. Will monitor his glucose a nd electrolytes closely. Recheck VBG here and lactic. Will resend UA, blood cultures, PCT to eval for an infectious source. Holding off on further antibiotics for now. If he has di arrhea here, can send that for analysis as well. 2. Acute renal failure on CKD III--creatinine 4.14 from a reported baseline around 1.9. Maria Esther king prerenal from DKA/dehydration. Continue camarena to monitor accurate UOP, provide IVF hyd ration, send urine studies, and follow serial labs. 3. Gastroparesis--symptom control as needed. 4. L foot ulcer--Consult wound care. FEN: NPO, water is ok PPx: sub q hep, SCDs Code: Presumed FULL, as I was not able to hold a meaningful conversation with the patient o n admit. Dispo: Inpatient, as will likely require >2MN hospital stay. ICU for close glucose monitor ing on insulin gtt. Electronically signed by: Erika Allison MD, 01/06/2020 1:43 AM [facility] Lab data: No results found for this or any previous visit (from the past 24 hour(s)). documented in this enc ounter Miscellaneous Notes Plan of Guilherme - Shruthi Suarez - 01/10/2020 11:50 AM PDTSpoke with Gia (daughter) about Alin being discharged today with Home Health. Gia is happy to hear he is ready to come home. Gia stated, my son will be over in a few minutes and they will be on the way. Gia is happy to hear that Alin will have Home Health. Face to face over to [facility] along with the chart notes. Received the communication result report; result ok. Electronically signed by: Shruthi Suarez 01/10/2020 11:54 AM lan of Care - Katrin Santa PT - 01/10/2020 10:38 AM PDTFormatting of this note might be different from the jameson rubalcava Physical Therapy Plan of Care Treatment Note Summary: Brooks Roque" has been participating in physical therapy for treatment of impai red functional mobility, significant generalized weakness, decreased activity tolerance and mobility limitations s/p transfer admission from [facility] d/t DKA and stage 3 C KD, ARF, diarrhea and AMS. PMH of BKA RLE, current left foot ulcer. Pt on phone on arrival, reported he is making arrangements for brother to come from [place] to pick pt up and take him home. Emphasis of session included communication with MD before and after session, tele phone conversation with patient's mother and communication with RN. Pt participated in bed mobility, sitting EOB and transfer training bed to w/c via sliding board. Patient's mother s tated she has no concerns regarding taking patient home. 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 Mother also reported she has additional help available if needed. PT recommended HH to increase strength, activity tolerance, indpce and safety. RN cleared patient for participation in therapy. Patient was agreeable to therapy. Patient participated without adverse reaction. RN debriefed on therapy session and patient status. I t is encouraged that the patient be up in chair for all meals. Recommended mobility with nursing: Day Night bed cooley and bedside commode bed cooley Sliding board No Assistive Device with 1-2 people minimum assistance Remaining barriers to discharge and functional limitations include decreased functional act ivity tolerance, decreased bed mobility, decreased functional transfers, not able to navigat e stairs, demonstrating need for 18/04 supervision, [facility] indicating significant impairment w ith basic functional mobility, and medical status. Brooks will benefit from continued therapeutic intervention to address ongoing impairments and increase safety and independence with activities necessary for safe discharge. Refer be low for specific details regarding functional levels. Physical Therapy Discharge Recommendations are: Recommended discharge disposition: home with assist, fdc facility(18/04 caregiv er A) Post discharge physical therapy recommendation: home health, will benefit from structured setting, ongoing low intensity therapy, family involved/supportive Equipment Recommendations: (pt has w/c, sliding board and [facility] provided gait belt) Planned Interventions: bed mobility training, patient/family education, strengthening, tra nsfer training Recommended Frequency: 5 times/wk(5-6x/wk) Patient Status/Goals: Reflects last filed data and may be from multiple contributors. Gait Level of Cisco: unable to perform, not appropriate to assess Transfers Completed bed to w/c transfer, needing sliding board and required max A to complete task. P t with limited use of UEs, and not able to push off and assist transfer with left foot/heel "my leg isn't working, I'm too weak", 1-2P required for safety assurance/assist Bed-Chair, Level of Cisco: maximal assist (25% patient effort), 1 person + 1 person to manage equipment, set up required, verbal cues required, tactile cues required Chair-Bed, Level of Cisco: not tested [id number], Assistive Device: wheelchair, sliding board Impairments: decreased flexibility, strength decreased, impaired balance, coordination impa ired, postural control impaired(very weak, deconditioned with low activity tolerance) Bed Mobility HOB elevated, assist at trunk required. Movements slow and laborious Assistive Device: HOB elevated Supine to Sit, Level of Cisco: minimal assist (75% patient effort), verbal cues requ ired Sit to Supine, Level of Cisco: not tested Safety Issues: decreased use of arms for pushing/pulling, decreased use of legs for bridgin g/pushing, impaired trunk control for bed mobility Impairments: decreased flexibility, ROM decreased, sensation decreased, strength decreased, impaired balance, coordination impaired, motor control impaired, sensory feedback impaired, pain Balance Sitting Balance: Static: good balance Sitting Balance: Dynamic: fair balance Functional Endurance Poor - pt is weak, poor activity tolerance ROM L LE ROM: AAROM is WFL R LE ROM: hip/knee AAROM are WFL Strength pt with significant generalized weakness; limited participation during MMT with alternating effort, c/o fatigue and buttock pain (RN notified and will assess, has dressing on buttocks ) L LE Strength: grossly 3-/5 R LE Strength: grossly 3-/5 PT Goal Review Date Most Recent Value STG Review Date 01/16/20 at 01/09/2020 1225 [id number] Goal Most Recent Value STG Status progressing at 01/10/2020 1121 STG Cisco Level stand by assist at 01/09/2020 1225 STG Assistive Device none at 01/09/2020 1225 [id number] Goal Most Recent Value STG Status progressing at 01/10/2020 1121 STG Cisco Level minimum assist (75% patient effort) at 01/09/2020 1225 STG Assistive Device none at 01/09/2020 1225 STG Comments stand-pivot with WB on left heel (need WB clarified with MD for transfers) at 01/09/2020 1225 PT Time Calculation Individual Start Time: 1005 Individual Stop Time: 1038 Individual Total Time: 33 PT Total Treatment Time: 33 Timed TX Code Minutes: 33 Electronically signed by: Frances Santa, PT, 01/10/2020 11:23 AM lan of Care - Sue De La Rosa, ANNETTE - 01/10/2020 3 :16 AM PDTKeith is A/O x4 and free of falls during shift. C/O pain everywhere tx with PRN No rco. C/O nausea tx with PRN Zofran. BG managed with evening lantus and sliding scale humalog . He has been tearful at times stated frustration with illness. Camarena in place draining sunday r yellow urine w/out difficulty. Rt healed BKA. VSS except elevated BP (PRN IV Labetalol giv en). Doxycycline given. Tele in place. Frequent rounding done and will continue to monitor. lan of Care - Jamison Prasad, OT - 01/09/2020 2:32 PM PDT Occupational Therapy Plan of Care Initial Evaluation, Treatment Note Summary: Brooks presents to occupational therapy with Impaired ADL's, balance, functional transfers, functional mobility, and activity tolerance following admission for renal failur e, chronic foot ulcer, and DKA. Objective exam reveals impairments with aerobic capacity/en durance, arousal, attention, and cognition, ergonomics and body mechanics, functional endura nce/activity tolerance, gait, locomotion, and balance, joint integrity and mobility, motor f unction, muscle performance, social dynamics. Emphasis of session included bed mobility, act ivity tolerance, LB dressing and education with use of sock aide, and balance. Pt was pleasant and cooperative with therapy. He was teary at various times throughout sess ion. He is slow to respond when asked questions. He was very nauseous throughout session, ho wever agreed to transfer to the chair tomorrow. RN cleared patient for participation in therapy. Patient was agreeable to therapy. Patient participated without adverse reaction. RN debriefed on therapy session and patient status. Recommended toileting with nursing: Day Night bedpan bedpan No Assistive Device No Assistive Device moderate assistance moderate assistance Barriers to discharge and functional limitations include decreased insight into safety and deficits, decreased functional activity tolerance, decreased bed mobility, decreased functio nal transfers, decreased ability to perform ADLs, decreased ability to perform IADLs, not ye t able to mobilize at level safe for home discharge, and medical status. Brooks will benefit from therapeutic intervention to address impairments and increase safet y and independence with activities necessary for safe discharge. Refer below for specific d etails regarding functional levels. Precautions/Limitations: falls, weight bearing status Left Lower Extremity Weight-Bearing: other (see comments) Right Lower Extremity Weight-Bearing: non weight-bearing Previous Level of Function: Transferring: assistive person Ambulation: independent Toileting: independent Bathing: assistive person Dressing: assistive person Eating: independent Prior Functional Level Comment: Pt lives with mother. Initially pt reported he was doing sq uat pivot transfers indpt prior to admit, has sliding board. At sessions end, pt admitted hi s mother assists with his ADLs and transfers. Has a prosthesis and reported ambulating with a cane until left foot ulcer, w/c since then. Getting bed baths only for some time. Potential available assistance at discharge: mother Living Environment/Accessibility: Lives With: mother Home Accessibility: ramps present at home Patient/Family s Goals: To go home Rehabilitation potential: good, to achieve stated therapy goals Occupational Therapy Discharge Recommendations are: Recommended discharge disposition: home with assist, fdc facility(Pending prog ress/ Level of assist for transfers) Post discharge occupational therapy recommendation: ongoing low intensity therapy, home he alth, family involved/supportive Equipment Recommendations: atm technician, sock aide, commode (drop arm) Planned Interventions:ADL retraining, balance training, bed mobility training, functional e ndurance training, motor coordination training, patient/family education, strengthening, tra nsfer training Recommended Frequency: 5 times/wk, 4 times/wk Patient Status/Goals: Reflects last filed data and may be from multiple contributors. ADLs Pt reported he has assistance donning and doffing sock on L LE from his mother. Demonstrate d how to use sock aid, pt was able to reverse demonstrate, however does have a wound on his foot and did not fully don sock to pain in his foot. LB Dressing, Level of Cisco: moderate assist (50% patient effort) Assistive Device: sock-aid, none LB Dressing Assess/Train, Position: sitting LB Dressing Impairments: decreased flexibility, ROM decreased, impaired balance, motor cont rol impaired, coordination impaired, pain, impaired functional endurance/activity tolerance Functional Endurance Tolerated sitting EOB for 15 minutes, verbalized it felt good on his back to sit up Cognitive Pt slow to respond, and had slow speech. Pt would become teary at various times throughout evaluation Mood/Behavior: sad, calm, cooperative Orientation: time, disoriented to Bed Mobility With encouragement, pt able to sit at EOB without physical assist CGA for steadying to tinsley sition to upright. Required extra time and effort. Able to scoot buttocks along bedside and mobilize back into bed without assist Assistive Device: bed rails, HOB elevated Supine to Sit, Level of Cisco: contact guard assist, verbal cues required, set up re quired Sit to Supine, Level of Cisco: stand by assist, verbal cues required Safety Issues: decreased use of arms for pushing/pulling, decreased use of legs for bridgin g/pushing, impaired trunk control for bed mobility Impairments: decreased flexibility, ROM decreased, sensation decreased, strength decreased, impaired balance, coordination impaired, motor control impaired, sensory feedback impaired, pain Transfers NT this session- pt declined and was nauseated. Pt asked if this was what was keeping him i n the hospital. Therapist explained we are evaluating the safest option for discharge, and dominick la is involved in assisting him to get medically stable before discharge. Balance Able to sit EOB without hand support on bed. Sitting Balance: Static: good balance Sitting Balance: Dynamic: fair balance ROM L UE ROM: WFL R UE ROM: WFL Strength L UE Strength: Inconsistent with effort generally 3+/5, generalized weakness and deconditio marcela R UE Strength: Inconsistent with effort generally 3+/5, generalized weakness and deconditio marcela OT Goal Review Date Most Recent Value STG Review Date 01/16/20 at 01/09/2020 1432 Grooming Goal Most Recent Value STG Status new at 01/09/2020 1432 STG Cisco Level modified independent, set up required at 01/09/2020 1432 STG Position sitting, edge of bed at 01/09/2020 1432 STG Adaptive Equipment none at 01/09/2020 1432 LB Dressing Goal Most Recent Value STG Status new at 01/09/2020 1432 STG Cisco Level moderate assist (50% patient effort) at 01/09/2020 1432 STG Adaptive Equipment sock-aid, atm technician at 01/09/2020 1432 Toilet Transfer Goal Most Recent Value STG Status new at 01/09/2020 1432 STG Cisco Level minimum assist (75% patient effort) at 01/09/2020 1432 STG Assistive Device commode (drop arm), sliding board at 01/09/2020 1432 OT Time Calculation OT Individual Start Time: 1400 OT Individual Stop Time: 1432 OT Individual Total Time: 32 OT Total Treatment Time: 32 Timed TX Code Minutes: 17 Electronically signed by: Jamison Prasad OT, 01/09/2020 2:58 PM lan of Care - Damarisbayron n, Frances Reynoso, PT - 01/09/2020 11:35 AM PDT Physical Therapy Plan of Care Initial Evaluation, Treatment Note Summary: Brooks Roque" presents to physical therapy with impaired functional mobility, s ignificant generalized weakness, decreased activity tolerance and mobility limitations s/p t ransfer admission from [facility] d/t DKA and stage 3 CKD, ARF, diarrhea and AMS. PMH of BKA RLE, current left foot ulcer. Objective exam reveals impairments with aerobic c apacity/endurance, arousal, attention, and cognition, gait, locomotion, and balance, functio nal endurance/activity tolerance, ergonomics and body mechanics, muscle performance, ROM, so cial dynamics. Pt able to participate with limited activity d/t nausea and not feeling well. Able to sit at EOB this session and will plan for transfer to chair or w/c next session. Wi ll need to ensure pt is able to safely perform transfers be at a level of assist in which mo ther can safely help at home. Communication with Dr. Aldrich, darien'd WB on left heel. RN cleared patient for participation in therapy. Patient was agreeable to therapy. Patient participated without adverse reaction. RN debriefed on therapy session and patient status. Recommended mobility with nursing: Day Night bed cooley bed cooley No Assistive Device No Assistive Device with 1-2 people With 1-2 people Barriers to discharge and functional limitations include decreased insight into safety and deficits, decreased functional activity tolerance, decreased bed mobility, decreased functio nal transfers, unsafe discharge disposition, not yet able to mobilize at level safe for home discharge, [facility] indicating significant impairment with basic functional mobility, and medi aliyah status. Brooks will benefit from therapeutic intervention to address impairments and increase safet y and independence with activities necessary for safe discharge. Refer below for specific d etails regarding functional levels. Precautions/Limitations: falls, weight bearing status Left Lower Extremity Weight-Bearing: other (see comments)(pt with foot ulcer; reports trans ferring with WB on heel; will get clarification of WB from MD) -received ok from 01/08 Right Lower Extremity Weight-Bearing: non weight-bearing(BKA) Previous Level of Function: Prior Functional Level Comment: Pt lives with mother. Initially pt reported he was doing sq uat pivot transfers indpt prior to admit, has sliding board. At sessions end, pt admitted hi s mother assists with his ADLs and transfers. Has a prosthesis and reported ambulating with a cane until left foot ulcer, w/c since then. Getting bed baths only for some time. Potential available assistance at discharge: mother Living Environment/Accessibility: Lives With: mother Home Accessibility: ramps present at home Patient/Family s Goals: go home MILE Rehabilitation potential: good, to achieve stated therapy goals Physical Therapy Discharge Recommendations are: Recommended discharge disposition: home with assist, fdc facility(TBD -dependi ng on progress and ability of cg to assist) Post discharge physical therapy recommendation: ongoing low intensity therapy, home health Equipment Recommendations: none(has DME) Planned Interventions: bed mobility training, patient/family education, strengthening, tra nsfer training Recommended Frequency: 5 times/wk(5-6x/wk) Patient Status/Goals: Reflects last filed data and may be from multiple contributors. Gait Level of Cisco: unable to perform, not appropriate to assess Transfers NT this session - pt declined, nauseated Bed Mobility With encouragement, pt able to sit at EOB, needing physical assist for last 1/3 of transiti on to upright. Movements very slow and labored, generalized weakness throughout. Able to sco ot buttocks along bedside and lift LE's BTB, consistent cueing required Assistive Device: bed rails, HOB elevated Supine to Sit, Level of Cisco: minimal assist (75% patient effort) Sit to Supine, Level of Cisco: stand by assist, verbal cues required Safety Issues: decreased use of arms for pushing/pulling, decreased use of legs for bridgin g/pushing, impaired trunk control for bed mobility Impairments: decreased flexibility, ROM decreased, sensation decreased, strength decreased, impaired balance, coordination impaired, motor control impaired, sensory feedback impaired, pain, other (see comments)(decreased activity tolerance) Balance Sitting Balance: Static: good balance Sitting Balance: Dynamic: fair balance Therapeutic Exercise Only able/willing to move LE's through partial ROM, assisted with few reps of initial stren gth ex's. Sitting at EOB approx 8-10' Bed exercises: bilateral, hip abduction/adduction, heel slides Repetitions: 3 Seated exercises: left, long arc quads Repetitions: 3 Functional Endurance poor ROM L LE ROM: AAROM is WFL R LE ROM: hip/knee AAROM are WFL Strength pt with significant generalized weakness; limited participation during MMT with alternating effort, c/o fatigue and buttock pain (RN notified and will assess, has dressing on buttocks ) L LE Strength: grossly 3-/5 R LE Strength: grossly 3-/5 [facility] BASIC MOBILITY Turning from your back to your side while in a flat bed without using bedrails?: min assist , CGA, SBA, Supervision/a little help Moving from lying on your back to sitting on the side of a flat bed without using bedrails? : min assist, CGA, SBA, Supervision/a little help Standing up from a chair using your arms (e.g. wheelchair, or bedside chair)?: dependent/un able(cj - 2P needed) Moving to and from a bed to a chair (including a wheelchair)?: mod or max assist/a lot of h elp(clinical judgment) To walk in a hospital room?: dependent/unable Climbing 3-5 steps with a railing?: dependent/unable Total Basic Mobility Six Click AM-PAC: 11 Completed the [facility] Activity Measure for Post Acute Care (AM-PAC) "6 Clicks" Ba sic Mobility Inpatient Short Form. This version of the AM-PAC is an assessment tool used to measure a person's level of disability in performing basic mobility tasks. Brooks's score indicates a performance of 72.57% impairment in the functioning of basic mobility. Raw Score - Functional Limitation % (for [facility]) - "Severity Modifier" CN 6 - 100.00 CM 7 - 92.36 8 - 86.62 9 - 81.38 CL 10 - 76.75 11 - 72.57 12 - 68.66 13 - 64.91 14 - 61.29 CK 15 - 57.70 16 - 54.16 17 - 50.57 18 - 46.58 19 - 41.77 CJ 20 - 35.83 21 - 28.97 22 - 20.91 CI 23 - 11.2 CH 24 - 0.00 Predicted Discharge During Acute Hospitalization (Raw Score) Home = 20.1 With assist = 17.9 SNF = 14 IRF = 13.6 LTAC = 11.5 PT Goal Review Date Most Recent Value STG Review Date 01/16/20 at 01/09/2020 1225 [id number]-Psp-Xmicvd Goal Most Recent Value STG Status new at 01/09/2020 1225 STG Cisco Level stand by assist at 01/09/2020 1225 STG Assistive Device none at 01/09/2020 1225 Bmd-Izemi-Eaf Goal Most Recent Value STG Status new at 01/09/2020 1225 STG Cisco Level minimum assist (75% patient effort) at 01/09/2020 1225 STG Assistive Device none at 01/09/2020 1225 STG Comments stand-pivot with WB on left heel (need WB clarified with MD for transfers) at 01/09/2020 1225 PT Time Calculation Individual Start Time: 1008 Individual Stop Time: 1048 Individual Total Time: 40 PT Total Treatment Time: 40 Timed TX Code Minutes: 30 Electronically signed by: Frances Santa, PT, 01/09/2020 12:36 PM lan of Shruthi Emery - 01/09/2020 9:21 AM PDTSpoke with Gia (mother) to follow up on her phone number and address. Gia gave this CM the current address and the current phone number. This CM updated the demographics. Gia let this CM know that they have been approved for a walk in shower. So someone blayne l come in and replace the tub with the walk in shower Gia stated Alin has been approved for a lift chair through [employer], but due to the Co vid-19 [employer] is current closed. Gia stated Alin has been approved for a new wheel chair and she is current working on getting this equipment home for Alin. Gia let this CM know that Alin smokes and request that this not be brought up because he will want to leave AMA. Gia requested that Alin have someone for anxiety. This CM let the attending provider and the RN know of this request. Gia will transport Alin home once he is medically stable. DISPO: Home with mom. Electronically signed by: Shruthi Suarez 01/09/2020 4:06 PM lan of Yvonne Kumar RN - 01/09/2020 5:36 AM PDTPatient is alert and oriented, however is slow to respo nd. Becomes tearful and easily frustrated with current health status. VSS, BP remains high, PRN order for Lobetaolol IV push for SBP over 150 q 4hrs. C/O pain " everywhere", PRN hydroc odone given q 6 hours with good relief. C/O nausea but no vomiting, PRN zofran IV given. Fol ey in place draining clear yellow urine. LBM 01/08/2020. Diabetic ulcer to Left heel covered with pink foam dressing, CDI, [place] foam dressing applied to coccyx to prevent breakdown. Rig ht BKA healed. Right hand middle finger tip missing. Patient has a history of leaving AMA on ce feeling better. Remains free from falls, safety rounds completed. Problem: Adult Inpatient Plan of Care Goal: Plan of Care Review Outcome: Ongoing, progressing Goal: Patient-Specific Goal Outcome: Ongoing, progressing Goal: Absence of Hospital-Acquired Illness or Injury Outcome: Ongoing, progressing Goal: Optimal Comfort and Wellbeing Outcome: Ongoing, progressing Goal: Readiness for Transition of Care Outcome: Ongoing, progressing Goal: Rounds/Family Conference Outcome: Ongoing, progressing Problem: Infection Goal: Infection Symptom Resolution Outcome: Ongoing, progressing Problem: Wound Goal: Optimal Wound Healing Outcome: Ongoing, progressing Problem: Diarrhea Goal: Fluid and Electrolyte Balance Outcome: Ongoing, progressing Problem: Diabetes Comorbidity Goal: Blood Glucose Level Within Desired Range Outcome: Ongoing, progressing Problem: Fall Injury Risk Goal: Absence of Fall and Fall-Related Injury Outcome: Ongoing, progressing Problem: Skin Injury Risk Increased Goal: Skin Health and Integrity Outcome: Ongoing, progressing Problem: Spiritual Distress Risk or Actual Goal: Spiritual Wellbeing Outcome: Ongoing, progressing lan of Care - Sushma Matute RN - 01/08/2020 6:34 PM PDTKeith alert and oriented x 4, vital signs stable on room air. PRN [place] helpful for leg and back pain. Blood glucose monitored patient tolera alissa well. Camarena catheter remains intact draining clear, yellow urine. Dressing to left foot remains clean, dry and intact. COVID-19 results came back negative yesterday. Transferred to 3 W today. Gave labetalol X 1 this afternoon. Problem: Adult Inpatient Plan of Care Goal: Plan of Care Review Outcome: Ongoing, progressing Goal: Patient-Specific Goal Outcome: Ongoing, progressing Goal: Absence of Hospital-Acquired Illness or Injury Outcome: Ongoing, progressing Goal: Optimal Comfort and Wellbeing Outcome: Ongoing, progressing Goal: Readiness for Transition of Care Outcome: Ongoing, progressing Goal: Rounds/Family Conference Outcome: Ongoing, progressing Problem: Infection Goal: Infection Symptom Resolution Outcome: Ongoing, progressing Problem: Wound Goal: Optimal Wound Healing Outcome: Ongoing, progressing Problem: Diarrhea Goal: Fluid and Electrolyte Balance Outcome: Ongoing, progressing Problem: Diabetes Comorbidity Goal: Blood Glucose Level Within Desired Range Outcome: Ongoing, progressing Problem: Fall Injury Risk Goal: Absence of Fall and Fall-Related Injury Outcome: Ongoing, progressing Problem: Skin Injury Risk Increased Goal: Skin Health and Integrity Outcome: Ongoing, progressing Problem: Spiritual Distress Risk or Actual Goal: Spiritual Wellbeing Outcome: Ongoing, progressing lan of Annie Osuna RN - 01/08/2020 7:57 AM PDTPatient alert and oriented x 4, vital signs stab le on room air. PRN [place] helpful for leg and back pain. Blood glucose monitored through the night, evening dose of Lantus 5 units administered, patient tolerated well. Camarena catheter remains intact draining clear, yellow urine. Dressing to left foot remains clean, dry and in tact. PRN Imodium given x1 with good results. Patient had one episode of diarrhea this eveni ng. COVID-19 results came back negative yesterday. lan of Thalia Henderson RN - 01/07/2020 6:48 PM PDTPt has been cooperative with [facility]. Hydrocodone has been given for generalized pain. Pt h ad two episodes of hypoglycemia one at 1225 having to receive 25 g of Dextrose IV push x 1 f or a BG of 41mg/dl; and another one at 1707 for a BG of 60mg/dl and juice given which resolv ed. BM x2. Poor appetite, labetalol given x1 for SBP > 160s. Pt restarted on Metoprolol. Blayne l continue to monitor pt for changes in condition. lan of Gia Copeland Chaplain - 01/07/2020 4:27 P M PDT Spiritual Care Brooks Marquez is a 29 y.o. male who is admitted for DKA. Service Car Operator visit is in response to family request. Spiritual Evaluation: P/C from Brooks's mother, Gia, who knows it is too early for Covid test results but hooper s concerns for her son and the rest of the family and is anxious to know MILE if her son is positive for the virus. Gia describes her relationship with her son as very close and s he finds it hard to not be able to visit him. Spiritual Interventions: Referred her to Brooks's RN for medical information and updates. Assured her that a bag wi th clothes did make it to her son's room and acknowledged that it is hard right now with vis itor restrictions in place. Spiritual Outcomes: Gia appreciated the contact and assurance and is happy to talk with the RN and plans t o call back. Spiritual Goals/Follow-up: Chaplains will continue to follow PRN. lan of Carmina Sahrp OT - 01/07/2020 3:18 PM PDTFormatting of this note might be different f rom the original. Patient Identification Brooks Marquez is a 29 y.o. male. : 1990 Admit Date: 01/06/2020 Attending Provider: Erika Allison MD WOUND CARE CONSULT Subjective: Reason for Consultation: management recommendations. History of present illness: 29yoM w/ type I DM c/b gastroparesis, CKD III, R BKA, and chron ic L foot ulcer, who presented to [facility] for diarrhea and AMS. Objective: Reportedly a long standing diabetic foot ulcer on the lateral side of the L. Foot near the [facility]. Wound is managed by cloth printing back tender in [place]. Wound is approx 3.5 cm x 2.3 cm. Pin k wound bed, irregular edges, moist. Natali wound is dry and wound edges thick and macerated. See photo in Media tab Assessment: Wound is a diabetic ulcer Plan: Wound care for L foot: Cleanse with wound cleanser Apply skin barrier to natali wound Cut a piece of Alginate AG the size of the wound, place in wound bed Place adhesive foam dressing over this. Change daily to assure that the aquacel is not too wet. Call Wound Care Team if exudate is not contained in this dressing. lan of Care - Tonya Ragland - 01/07/2020 11:03 AM PDTDischarge Planning: This CM Asst. Called Alin's room to speak with him. The number on file for patient is a no n working number. He states he lives with his mom. He has a ramp to enter into his home. He states that he hooper s a tub shower and they are working on installing grab bars nearby. He states he doesn't dri ve and he utilizes local transport/family to get where he needs to go. He states he needs as sistance with ADL's (states he needs assistance dressing himself) DME: wheelchair, shower chair, slider board, states he is working on getting a lift chair Pharmacy: [facility] [place] Transportation: he states his brother Ambrocio Marquez This CM Asst. Asked if he had a good number for us to put on file. He states his brother wa s going to be by sometime today to drop off a phone for him and some clothes. Plan: home with family transporting when medically stable. No unmet needs. Electronically signed by: Tonya Villarreal 01/07/2020 11:10 AM lan of Care - Ladonna Rocha Chaplain - 01/07/2020 10:23 AM PDT Spiritual Care Brooks Marquez is a 29 y.o. male who is admitted for DKA. Service Car Operator visit was part of routine rounding. Spiritual Evaluation: The patient was resting in a bed in the ICU and was receptive to a spiritual care phone aliyah arreaga. He was groggy and a bit overwhelmed by the situation as he did not recall many of the de tails about his arrival. He desired the crocheter hand to contact his mother to provide a change of clothes. He has a brother who is supportive as well. His mother later shared by phone t hat she is his caregiver and feels grateful for her ability to care for him and help to keep him alive in times like this. She also said that he is modest and appreciates wearing shor ts. No spiritual care needs. Spiritual Interventions: The crocheter hand attended, offered care, witnessed patient's story, and contacted patient's mot her. Spiritual Outcomes: The patient is coming to an awareness of his situation and appreciates spiritual care. Spiritual Goals/Follow-up: Follow up as needed. 10:2 7 AM PDTPlan of Care - Mal Beltran RN - 01/07/2020 9:11 AM PDTKeermelinda had no falls over night. C/O pain, obtained order for [place]. Anion gap closed, insulin gtt stopped this shift. Switched to consistent carb diet. Improving alertness and orientation throughout this shift . Blood glucose, electrolytes monitored closely. Isolation precautions for covid-19 maintain ed. Electronically signed by: Mal Beltran RN 01/07/2020 9:16 AM lan of Care - Babs Noel RN - 01/06/20 20 7:45 PM PDTAlin answered more questions this evening was able to tell me he is in the h ospital but thought he was in clint and did not know why he was here. He has been tachy cardic and continues to be bradypneic with sleeping. O2 sats 100% and LS coarse throughout. CT scan of chest and abdomen done and pt placed in isolation for r/o covid. No cough note d. Afebrile this shift. Repositioned q2hrs d/t fragile skin. Insulin gtt continues last g ap was 13. UO this shift 250mls. reatment Plan - Yo Gonzales MD - 01/06/2020 7:27 AM PDTBriefly, 29-year -old male with an extensive past medical history most significant for type 1 diabetes mellit us complicated with gastroparesis right BKA and chronic left foot ulcer and CKD stage I II who presented initially to [facility] with a chief complaint of diarrhea and confusi on transferred to [facility] ICU for DKA and acute on chronic renal failure, requ iring higher level of care. Kindly, see official H&P for further details regarding physical examination, assessment and plan. Plan: -Briefly, continue patient on insulin drip and present IV fluids. Stop IV insulin if potas sium is 3.3 or less. Kindly, decrease serum blood sugar levels by 50-75 mg/dL/h. Once the patient's blood sugar level is at 250 mg/dL kindly, convert to D5 half NS with 20 KCl ba sed on most recent potassium level and 200 cc/h. Once, the anion gap closes kindly portillo henderson MD with total amount of insulin given and home dose. Thank you. The patient can be transferred later tonight to regular medical floor, once anion gap close s with continued stability and hemodynamics and laboratory results. lan of Care - Augusta medellin, Chata Tan RN - 01/06/2020 5:57 AM PDTPatient arrived from [place] via ground ambulance . He was given ativan prior to leaving [place] for altered mental status and is somnolent . Patient arrived with 3 patent IV sites with NS 150 cc/hr. No insulin drip. Patient's temp was 34.0 C on arrival. He is being warmed with personal ashwini hugger. Insulin started, seria l labs ordered. Lyte imbalances being corrected. Patieatnt has diabetic ulcer to left foot w ere, 5th toe site (amputated in past), Wound consult ordered. He is being r/o for c diff. Th ere are vesicles scattered throughout pubic hair in the pubis area. documented in this encounter Plan of Treatment +--------+---------+ + + + | Date | Type | Specialty | Care Team | Description | +--------+---------+ + + + | 05/07/ Office | Nephrology | Winston Whitman MD | | | 2019 | Visit | | [address] [facility] | | | | | | [address] [place], [place] | | | | | | [address] | | | | | | | [...] MEDICAL | | | | | | [facility] - | | | | | | LABORATORY | | + +-------+ + + + + + | Specimen | + + | Blood | + + + + + + + | Performing | Address | City/State/Zipcode | Phone Number | | Organization | | | | + + + + + | [facility] | [address] | [place] | [phone] | | [facility] | | [address] | | | - LABORATORY | | [...] [address] | [place] | [phone] | | [facility] | | [address] | | | - LABORATORY | | [...] + | [facility] | [address] | [place] | [phone] | | [facility] | | [address] | | | - LABORATORY | | | | + + + + + CBC with Differential (01/10/2020 4:33 AM PDT) + + + + + + | Component | Value | Ref Range | Performed | Pathologist | | | | | At | Signature | + + + + + + | WBC | 6.7 | 4.0 - 11.0 K/uL | [facility] [...] [facility] | [address] | [place] | [phone] | | [facility] | | [address] | | | - LABORATORY | | [...] + | [facility] | [address] | [place] | [phone] | | [facility] | | [address] | | | - LABORATORY | | [...] mL/min/1.73m2 | [facility] | | | [place] [employer] [place] | RATE,ESTIMATED | | MEDICAL | | | | mL/min/1.47g6Rhgx than | | CENTER - | | [...] [address] | [place] | [phone] | | [facility] | | [address] | | | - LABORATORY | | [...] [address] | [place] | [phone] | | [facility] | | [address] | | | - LABORATORY | | [...] + | [facility] | [address] | [place] | [phone] | | [facility] | | [address] | | | - LABORATORY | | [...] [address] | [place] | [phone] | | [facility] | | [address] | | | - LABORATORY | | [...] + | [facility] | [address] | [place] | [phone] | | [facility] | | [address] | | | - LABORATORY | | [...] | | | | | g/dL | [facility] | | | | [...] | | | Count | | | [facility] | | [...] [facility]. | [address] | [place] | [phone] | | [facility] | | [address] | | | - LABORATORY | | [...] [address] | [place] | [phone] | | [facility] | | [address] | | | - LABORATORY | | [...] (H) | 9 - 23 mg/dL | [facility] | | | | | | [facility] | | | | | | MEDICAL | | | | | | CENTER - | | | | | | LABORATORY | | + + + + + + | Creatinine | 2.91 (H) | 0.70 - 1.30 | [place] | | | | | mg/dL | [facility] | | | | | | MEDICAL | | | | | | CENTER - | | | | | | LABORATORY | | + + + + + + | eGFR if not | 26 (L)Comment: | >=60 | [place] | | | | GLOMERULAR FILTRATION | mL/min/1.73m2 | [facility] | | | [place] [employer] [place] | RATE,ESTIMATED | | MEDICAL | | | | mL/min/1.98d0Cqmu than | | CENTER - | | [...] + | [facility] | [address] | [place] | [phone] | | [facility] | | [address] | | | - LABORATORY | | [...] + | [facility] | [address] | [place] | [phone] | | [facility] | | [address] | | | - LABORATORY | | [...] [address] | [place] | [phone] | | [facility] | | [address] | | | - LABORATORY | | [...] + | [facility] | [address] | [place] | [phone] | | [facility] | | [address] | | | - LABORATORY | | [...] [address] | [place] | [phone] | | [facility] | | [address] | | | - LABORATORY | | [...] | | GLOMERULAR FILTRATION | mL/min/1.73m2 | [facility] | | | [place] [employer] [place] | RATE,ESTIMATED | | MEDICAL | | | | mL/min/1.61z4Egid than | | CENTER - | | [...] | | | | | mg/dL | [facility] | | | | | | MEDICAL [...] [address] | [place] | [phone] | | [facility] | | [address] | | | - LABORATORY | | [...] + | [facility] | [address] | [place] | [phone] | | [facility] | | [address] | | | - LABORATORY | | | | + + + + + Magnesium (01/08/2020 4:44 AM PDT) + +-------+ + + + | Component | Value | Ref Range | Performed | Pathologist | | | | | At | Signature | + +-------+ + + + | Magnesium | 1.7 | 1.6 - 2.6 mg/dL | [facility] | | | | | | [facility] | | | | | | MEDICAL [...] [address] | [place] | [phone] | | [facility] | | [address] | | | - LABORATORY | | [...] [address] | [place] | [phone] | | [facility] | | [address] | | | - LABORATORY | | [...] [address] | [place] | [phone] | | [facility] | | [address] | | | - LABORATORY | | [...] [address] | [place] | [phone] | | [facility] | | [address] | | | - LABORATORY | | | | + + + + + POC Glucose (01/07/2020 5:07 PM PDT) + +--------+ + + + | Component | Value | Ref Range | Performed | Pathologist | | | | | At | Signature | + +--------+ + + + | Glucose, | 60 (L) | 70 - 109 mg/dL | [facility] [...] + | [facility] | [address] | [place] | [phone] | | [facility] | | [address] | | | - LABORATORY | | [...] 84 | 70 - 109 mg/dL | [facility] [...] [address] | [place] | [phone] | | [facility] | | [address] | | | - LABORATORY | | [...] + | [facility] | [address] | [place] | [phone] | | [facility] | | [address] | | | - LABORATORY | | | | + + + + + POC Glucose (01/07/2020 12:25 PM PDT) + +--------+ + + + | Component | Value | Ref Range | Performed | Pathologist | | | | | At | Signature | + +--------+ + + + | Glucose, | 41 (L) | 70 - 109 mg/dL | [facility] [...] [address] | [place] | [phone] | | [facility] | | [address] | | | - LABORATORY | | [...] + + | Performing | Address | City/State/[facility] Hospitalcode | Phone Number | | Organization | | | | + + + + + | [facility] | [address] | [place] | [phone] | | [facility] | | [address] | | | - LABORATORY | | [...] + | [facility] | [address] | [place], [place] | [phone] | | [facility] | | [address] | | | - LABORATORY | | [...] [address] | [place] | [phone] | | [facility] | | [address] | | | - LABORATORY | | [...] [address] | [place] | [phone] | | [facility] | | [address] | | | - LABORATORY | | [...] 3.76 (H) | 0.70 - 1.30 | [place] | | | | | mg/dL | [facility] | | | | | | MEDICAL | | | | | | CENTER - | | | | | | LABORATORY | | + + + + + + | eGFR if not | 19 (L)Comment: | >=60 | [place] | | | | GLOMERULAR FILTRATION | mL/min/1.73m2 | [facility] | | | [employer] | RATE,ESTIMATED | | MEDICAL | | | | mL/min/1.84a0Qcgc than | | CENTER - | | [...] [address] | [place] | [phone] | | [facility] | | [address] | | | - LABORATORY | | [...] [address] | [place] | [phone] | | [facility] | | [address] | | | - LABORATORY | | [...] [address] | [place] | [phone] | | [facility] | | [address] | | | - LABORATORY | | [...] [address] | [place] | [phone] | | [facility] | | [address] | | | - LABORATORY | | [...] + | [facility] | [address] | [place] | [phone] | | [facility] | | [address] | | | - LABORATORY | | [...] ST. | [address] | [place], [place] | [phone] | | [facility] | | [address] | | | - LABORATORY | | [...] [address] | [place] | [phone] | | [facility] | | [address] | | | - LABORATORY | | [...] + | [facility] | [address] | [place] | [phone] | | [facility] | | [address] | | | - LABORATORY | | [...] [address] | [place] | [phone] | | [facility] | | [address] | | | - LABORATORY | | [...] | | GLOMERULAR FILTRATION | mL/min/1.73m2 | [facility] | | | [employer] [place] [employer] | RATE,ESTIMATED | | MEDICAL | | | | mL/min/1.64x6Dury than | | CENTER - | | [...] [address] | [place] | [phone] | | [facility] | | [address] | | | - LABORATORY | | [...] + | [facility] | [address] | [place] | [phone] | | [facility] | | [address] | | | - LABORATORY | | [...] + | [facility] | [address] | [place], [place] | [phone] | | [facility] | | [address] | | | - LABORATORY | | | | + + + + + POC Glucose (01/06/2020 10:08 PM PDT) + +-------+ + + + | Component | Value | Ref Range | Performed | Pathologist | | | | | At | Signature | + +-------+ + + + | Glucose, | 97 | 70 - 109 mg/dL | [facility] [...] [address] | [place] | [phone] | | [facility] | | [address] | | | - LABORATORY | | [...] [address] | [place] | [phone] | | [facility] | | [address] | | | - LABORATORY | | [...] [address] | [place] | [phone] | | [facility] | | [address] | | | - LABORATORY | | [...] + | [facility] | [address] | [place], [place] | [phone] | | [facility] | | [address] | | | - LABORATORY | | [...] ST. | [address] | [place], [place] | [phone] | | [facility] | | [address] | | | - LABORATORY | | [...] not | 18 (L)Comment: | >=60 | [facility] | | | | GLOMERULAR FILTRATION | mL/min/1.73m2 | [facility] | | | [employer] | RATE,ESTIMATED | | MEDICAL | | | | mL/min/1.09k5Fxdy than | | CENTER - | | [...] | | | | mg/dL | [facility] | | | | [...] [address] | [place] | [phone] | | [facility] | | [address] | | | - LABORATORY | | [...] [address] | [place] | [phone] | | [facility] | | [address] | | | - LABORATORY | | [...] + | [facility] | [address] | [place] | [phone] | | [facility] | | [address] | | | - LABORATORY | | [...] [address] | [place] | [phone] | | [facility] | | [address] | | | - LABORATORY | | [...] + | [facility] | [address] | [place] | [phone] | | [facility] | | [address] | | | - LABORATORY | | [...] | | | | | | [facility] | | | | | | MEDICAL [...] ST. | [address] | [place], [place] | [phone] | | [facility] | | [address] | | | - LABORATORY | | [...] [address] | [place] | [phone] | | [facility] | | [address] | | | - LABORATORY | | [...] 4.13 (H) | 0.70 - 1.30 | [facility] | | | | | mg/dL | [facility] | | | | | | MEDICAL | | | | | | CENTER - | | | | | | LABORATORY | | + + + + + + | eGFR if not | 17 (L)Comment: | >=60 | [facility] | | | | GLOMERULAR FILTRATION | mL/min/1.73m2 | [facility] | | | [employer] | RATE,ESTIMATED | | MEDICAL | | | | mL/min/1.27p4Wmvy than | | CENTER - | | [...] [address] | [place] | [phone] | | [facility] | | [address] | | | - LABORATORY | | [...] + | [facility] | [address] | [place] | [phone] | | [facility] | | [address] | | | - LABORATORY | | [...] | | | report was sent by [employer] with no significant discrepancy on | | [...] preliminary report was | | sent by [employer] with no significant discrepancyon 01/06/2020 4:25 PM.Dictated [...] | |A preliminary report was sent by [employer] with no significant discrepancy | |on 01/06/2020 [...] [address] | [place] | [phone] | | [facility] | | [address] | | | - LABORATORY | | [...] [address] | [place] | [phone] | | [facility] | | [address] | | | - LABORATORY | | [...] + | [facility] | [address] | [place] | [phone] | | [facility] | | [address] | | | - LABORATORY | | | | + + + + + Phosphorus (01/06/2020 12:21 PM PDT) + +---------+ + + + | Component | Value | Ref Range | Performed | Pathologist | | | | | At | Signature | + +---------+ + + + | Phosphorus | 7.4 (H) | 2.4 - 5.1 mg/dL | [facility] | | | | [...] + | [facility] | [address] | [place] | [phone] | | [facility] | | [address] | | | - LABORATORY | | [...] | + + + + + | [facility] | [address] | [place] | [phone] | | [facility] | | [address] | | | - LABORATORY | | [...] (H) | 9 - 23 mg/dL | [facility] | | | | | | [facility] | | | | | | MEDICAL | | | | | | CENTER - | | | | | | LABORATORY | | + + + + + + | Creatinine | 4.08 (H) | 0.70 - 1.30 | [place] | | | | | mg/dL | [facility] | | | | | | MEDICAL | | | | | | CENTER - | | | | | | LABORATORY | | + + + + + + | eGFR if not | 17 (L)Comment: | >=60 | [place] | | | | GLOMERULAR FILTRATION | mL/min/1.73m2 | [facility] | | | [employer] | RATE,ESTIMATED | | MEDICAL | | | | mL/min/1.53s1Ahox than | | CENTER - | | [...] + | [facility] | [address] | [place] | [phone] | | [facility] | | [address] | | | - LABORATORY | | [...] [address] | [place] | [phone] | | [facility] | | [address] | | | - LABORATORY | | [...] [address] | [place] | [phone] | | [facility] | | [address] | | | - LABORATORY | | [...] [address] | [place] | [phone] | | [facility] | | [address] | | | - LABORATORY | | [...] [address] | [place] | [phone] | | [facility] | | [address] | | | - LABORATORY | | [...] [address] | [place] | [phone] | | [facility] | | [address] | | | - LABORATORY | | | | + + + + + Folate (01/06/2020 8:04 AM PDT) + +---------+ + + + | Component | Value | Ref Range | Performed | Pathologist | | | | | At | Signature | + +---------+ + + + | FOLATE | 2.0 (L) | >5.4 ng/mL | [facility] | | [...] + | [facility] | [address] | [place] | [phone] | | [facility] | | [address] | | | - LABORATORY | | [...] | B-12 | DEFICIENT: | | [facility] | | | | <145 | | [...] [address] | [place] | [phone] | | [facility] | | [address] | | | - LABORATORY | | [...] + | [facility] | [address] | [place] | [phone] | | [facility] | | [address] | | | - LABORATORY | | [...] [facility] | | | | | | [facility] | | | | | | MEDICAL | | | | | | CENTER - | | | | | | LABORATORY | | + + + + + + | TRANSFERRIN | 109.0 (L) | 215.0 - 365.0 | [facility] | | | | | mg/dL | [facility] | | | | | | [...] [address] | [place] | [phone] | | [facility] | | [address] | | | - LABORATORY | | [...] | | | Screen | | | [facility] | | [...] | [facility] | | [address] | | | - BLOOD BANK | [...] + | [facility] | [address] | [place] | [phone] | | [facility] | | [address] | | | - LABORATORY | | | | + + + + + Magnesium (01/06/2020 8:04 AM PDT) + +-------+ + + + | Component | Value | Ref Range | Performed | Pathologist | | | | | At | Signature | + +-------+ + + + | Magnesium | 2.0 | 1.6 - 2.6 mg/dL | [facility] [...] [facility] | [address] | [place], [place] | [phone] | | [facility] | | [address] | | | - LABORATORY | | [...] not calculated due to a | | CURLY | | | | component that is [...] | | | | | mg/dL | [facility] | | | | | | MEDICAL | | | | | | CENTER - | | | | | | LABORATORY | | + + + + + + | eGFR if not | 17 (L)Comment: | >=60 | [facility] | | | | GLOMERULAR FILTRATION | mL/min/1.73m2 | [facility] | | | [employer] | RATE,ESTIMATED | | MEDICAL | | | | mL/min/1.20p6Afyw than | | CENTER - | | [...] | | | | | mg/dL | [facility] | | | | | | [...] [address] | [place] | [phone] | | [facility] | | [address] | | | - LABORATORY | | [...] + | [facility] | [address] | [place] | [phone] | | [facility] | | [address] | | | - LABORATORY | | [...] ST. | [address] | [place], [place] | [phone] | | [facility] | | [id number] | | | - LABORATORY | | [...] + | [facility] | [address] | [place] | [phone] | | [facility] | | [id number] | | | - LABORATORY | | [...] + | [facility] | [address] | [place] | [phone] | | [facility] | | [address] | | | - LABORATORY | | [...] difficile, | Toxigenic C. difficile | | [facility] | | | Interp | detected. [...] [address] | [place] | [phone] | | [facility] | | [id number] | | | - LABORATORY | | [...] [address] | [place] | [phone] | | [facility] | | [address] | | | - LABORATORY | | [...] + | [facility] | [address] | [place] | [phone] | | [facility] | | [address] | | | - LABORATORY | | [...] ST. | [address] | [place] | [phone] | | [facility] | | [address] | | | - LABORATORY | | [...] + | [facility] | [address] | [place] | [phone] | | [facility] | | [address] | | | - LABORATORY | | [...] + + | Performed at: 01 - [place] [address], | REFERENCE LAB | | [place], [place] [id number] Early Childhood Educator Aide: Jerome Agudelo MD, Phone: | [facility] | | [phone] | | + + + + + + + + | Performing | Address | City/State/Zipcode | Phone Number | | Organization | | | | + + + + + | REFERENCE LAB | [address] | [place], [place] | [phone] | | [facility] | [place] | [address] | | + + + + + [...] [address] | [place] | [phone] | | [facility] | | [address] | | | - LABORATORY | | [...] - 1.030 | [facility] | | | [place], | | | [facility] | | [...] | Urine Culture Set Up | | [facility]IG[facility] | | | Comment | | | [facility] | | [...] [address] | [place] | [phone] | | [facility] | | [address] | | | - LABORATORY | | [...] + | [facility] | [address] | [place] | [phone] | | [facility] | | [address] | | | - LABORATORY | | [...] ST. | [address] | [place] | [phone] | | [facility] | | [address] | | | - LABORATORY | | [...] by | | | | | | CRISTNIE HUDDLESTON MD ([id number]) | | | | | | on [...] [address] | [place] | [phone] | | [facility] | | [address] | | | - LABORATORY | | [...] + | [facility] | [address] | [place] | [phone] | | [facility] | | [address] | | | - LABORATORY | | | | + + + + + Magnesium (01/06/2020 3:28 AM PDT) + +-------+ + + + | Component | Value | Ref Range | Performed | Pathologist | | | | | At | Signature | + +-------+ + + + | Magnesium | 2.1 | 1.6 - 2.6 mg/dL | [facility] [address] | [place] | [phone] | | [facility] | | [address] | | | - LABORATORY | | [...] + | [facility] | [address] | [place] | [phone] | | [facility] | | [address] | | | - LABORATORY | | [...] [address] | [place] | [phone] | | [facility] | | [address] | | | - LABORATORY | | [...] | | | | mmol/L | [facility] | [...] [address] | [place] | [phone] | | [facility] | | [address] | | | - LABORATORY | | [...] | | | | | | [employer] | | | | | [...] + + | Performing | Address | City/State/[facility] | Phone Number | | Organization | | | | + + + + + | [facility] | [address] | [place] | [phone] | | [facility] | | [address] | | | - LABORATORY | | [...] | Critical Result called | | [facility] | | | | to and read [...] | | MEDICAL | | | | D ANNETTE Guzman on | | CENTER - | | [...] 4.16 (H) | 0.70 - 1.30 | [facility] | | | | | mg/dL | [facility] | | | | | | MEDICAL | | | | | | CENTER - | | | | | | LABORATORY | | + + + + + + | eGFR if not | 17 (L)Comment: | >=60 | [facility] | | | | GLOMERULAR FILTRATION | mL/min/1.73m2 | [facility] | | | TURKS AND [place]ER | RATE,ESTIMATED | | MEDICAL | | | | mL/min/1.29b0Mqtq than | | CENTER - | | [...] (L) | 0.3 - 1.2 mg/dL | [facility] | | | Total | | | [facility] | | [address] | [place] | [phone] | | [facility] | | [address] | | | - LABORATORY | | [...] [address] | [place] | [phone] | | [facility] | | [address] | | | - LABORATORY | | [...] [address] | [place] | [phone] | | [facility] | | [address] | | | - [...] [address] | [place] | [phone] | | [facility] | | [address] | | | - LABORATORY | | [...] 7.10 (LL) | 7.30 - 7.40 | [facility] | | | | | [...] + | [facility] | [address] | [place] | [phone] | | [facility] | | [address] | | | - LABORATORY | | [...] | | of foot, unspecified ulcer stage ([facility]) | + + documented in [...] | | | | | NPO, Daytime 8847-1136 Use NIGHT | | | | | | | DOSE for doses scheduled: | | | | | | | HS, Nighttime 6201-5816 If the | | | | | [...] +---+---+ + +-------+ +---------+---+---+ | lactobacillus GG (CULTUREE) | Given | 01/10/20 | 1 | [...] + + + + | Rule out Soo Chan | 01/06/2020 4:07 AM | 01/06/2020 7:05 [...]
--- OUTSIDE RECORDS SUMMARY | ~2020-03-21 | XMS | Encounter Summary ---
Demographics + + + | Address | [address] | | | [place] [address] | + + + | Home Phone [...] Samantha Ramos | ECON | [address] # | | | | | [place], [place] | | | | | [address] | | + + + + + Care Team Providers + +------+ + | Care Double Surface Operator Name | Role | Phone | [...]
--- OUTSIDE RECORDS SUMMARY | ~2020-03-21 | XMS | Encounter Summary ---
Demographics + + + | Address | [address] | | | [place] [address] | + + + | Home Phone [...] Samantha Ramos | ECON | [address] # | | | | | [place] | | | | | [address] | | + + + + + Care Team Providers + +------+ + | Care Training And Development Rep Name | Role | Phone | [...] | | | | | diabetes | [place], [place] | for Health | | | | | mellitus | [address] | and Healing, | | | | | ([facility]) | Phone: | Building 2 | | | | | Procedures | [phone] | [place], [place] | | | | | CONSULT TO | Fax: | [address] | | | | | GI PROCEDURE | [phone] | Phone: | | | | | UNIT: EGD | | [phone] | | | | | | | Fax: | | | | | | | [phone] | + +--------+ + + + + [...] [facility] 34[address] | ANP [address] [facility] | EGD w/ pyloric | | | | [address] | [address] | botox) | | | | Mailcode: Center | [place], [place] | | | | | [facility] and | [address] | | | | | [place] [address] | [phone] | | | | | [place], [place] | | | | | | [address] | | | | | | [phone] | | | +--------+ + + + [...]
--- OUTSIDE RECORDS SUMMARY | ~2020-03-21 | XMS | Encounter Summary ---
Demographics + + + | Address | [address] | | | [place] [address] | + + + | Home Phone [...] Samantha Ramos | ECON | [address] # | | | | | [place] | | | | | [address] | | + + + + + Care Team Providers + +------+ + | Care Block Trader Name | Role | Phone | + [...] | Only | [address] [address] | SKIN CARVER [address] | | | | | [address] | [address] | | | | | Mailcode: PV430 | [place] [address] | | | | | [facility] | [phone] | | | | | [place], [place] | | | | | | [address] | | | | | | [phone] | | | +--------+ + + + [...]
--- OUTSIDE RECORDS SUMMARY | ~2020-03-21 | XMS | Encounter Summary ---
Demographics + + + | Address | [address] | | | [place] [address] | + + + | Home Phone [...] [place] | | | | | [address] | | + + + + + Care Team Providers + +------+ + | Care Cooking Instructor Name | Role | Phone | + +------+ + | Erich Yates | PCP | | + +------+ + Reason for Visit + +--------+ + | Reason | Onset | Comments | | | Date | | + +--------+ + | Care Plan | 07/03/ | | | | 2019 | | + +--------+ + Encounter Details +--------+ + + + + | Date | Type | Department | Care Team | Description | +--------+ + + + + | 07/03/ | Telephone | [facility], | Care Plan | | 2019 | | GASTROENTEROLOGY | DANA Perry [address] | | | | | [address] | [address] | | | | | [address] [place] | [place] | | | | | [address] | [address] | | | | | [phone] | | | +--------+ + + + [...] Telephone Encounter - Kay Sterling CMA - 07/03/2019 11:00 AM Samantha Joy from [facility] called regarding this patient. She is asking if there is a care plan in place? She is as leslie about nutrition status and if the patient is in need of a feeding tube? She said he has low Albumin levels for unknown reason, he is anemic. Told her we have not seen patient sin e January 2019. She said that they are seeing him to do a pacer for gastroparesis. Her phone num roland is [phone]. Spoke with Arlet and called Lashawn back and left message that we do not h ave a care plan in place. We do not have the resources here for this patient's needs. Also kaylee winters does not live in this area Arlet was hoping there was something they could for patient . Jaiden in thi s encounter Plan of Treatment +--------+---------+ + + + | Date | Type | Specialty | Care Team | Description | +--------+---------+ + + + | 05/07/ | Office | Nephrology | Winston Whitman MD | | | 2020 | Visit | | [address] [facility] | | | | | | [address] [place], [place] | | | | | | [address] | | | | | | | | +--------+---------+ + + + documented as of this encounter Visit Diagnoses Not on filedocumented in this encounter"
--- OUTSIDE RECORDS SUMMARY | ~2020-03-21 | XMS | Encounter Summary ---
Demographics + + + | Address | [address] | | | [place] [address] | + + + | Home Phone [...] [place] | | | | | [address] | | + + + + + Care Team Providers + +------+ + | Care Senior Cytogenetics Laboratory Director Name | Role | Phone | [...] | | | | | [address] | [place] | | | | | [place] | [address] | | | | | [address] | | | | | | [phone] | | | +--------+ + + + [...] +----+---+ + + | | 2 | [place] | | | | 0 | 43-degrees | | | | 4 | | | | | 8 | | | +----+---+ + + | | 2 | First | | | | 0 | [address] | | | | 5 | | | | | 4 | | | +----+---+ + + | | 2 | [place] off | | | | 1 | [...] EVALUATION Brooks Marquez 27 y.o. male 1990 [id number] Procedure(s) CYSTOSCOPY W/ URETEROSCOPY W/ LASER LITHOTRIPSY [...] signed by Tereso Dillon MD 09/19/2018 22:04 [facility] Dillon MD [...] EVALUATION Brooks Marquez 27 y.o. male 1990 [id number] Procedure(s): CYSTOSCOPY W/ URETEROSCOPY W/ LASER LITHOTRIPSY WITH STENT PLACEMENT (Right ) Medical history, anesthesia, medications, allergy, NPO status verified histories reviewed. ECG reviewed. Labs reviewed. Review of Systems / Med History Anesthesia History (-) PONV, difficult intubation, malignant hyperthermia Cardiovascular ECG today from OSH -- shows sinus rhythm with some peaked T waves (K 5.7). (+) hypertension(-) past [place] , Exercise tolerance >4 METS Pulmonary No [...] | | | | | | [facility] [place] | | | | | | [address] | | | | | | | [...] - 09/19/2018 8:55 PM PST Anesthesia Airway Cwgpjaahk66/25/2018 | | 20:40Preprocedure check: patient identified, suction, [...]
--- OUTSIDE RECORDS SUMMARY | ~2020-03-21 | XMS | Encounter Summary ---
Demographics + + + | Address | [address] | | | [place] [address] | + + + | Home Phone [...] Samantha Ramos | ECON | [address] # | | | | | [place] | | | | | [address] | | + + + + + Care Team Providers + +------+ + | Care Doctor Of Medicine Name | Role | Phone | + +------+ + PCP | Unavailable | + +------+ + Encounter Details +--------+ + + + + | Date | Type | Department | Care Team | Description | +--------+ + + + + | 09/30/ | Office | [facility] | Clinic, Pediatric | Progress Note | | 2005 | Visit-Trans | PURCHASE REQUEST EDITOR | Endocrinology | | | | cribed [...] as of this encounter Progress Notes Interface, Exceptional Children Teacher In - 04/25/2005 12:43 AM PDT [id number] NAHOMY RAYMOND BROOKS [facility] Date: 09/30/2004 [...] eats. DENISSE Carr, CNSD, LD AT / [id number] / [id number] / [id number] / documented i n this encounter Plan of Treatment Not on filedocumented as of this encounter Visit Diagnoses Not on filedocumented in this encounter"
--- OUTSIDE RECORDS SUMMARY | ~2020-03-21 | XMS | Encounter Summary ---
Demographics + + + | Address | [address] | | | [place] [address] | + + + | Home Phone [...] + + + | Author | [facility] | | | and [place] | + + + | Organization | [facility] | | | [...] [place] | | | | | [address] | | + + + + + Care Team Providers + +------+ + | Care Right Of Way Manager Name | Role | Phone | [...] + + | 03/20/ | Telephone | [facility] | Anne Neal, | Case Management | | 2019 | | MED CTR CASE | RN | (specialized | | | | MANAGEMENT [address] | | wheelchair/referral | | | | [place], | | needed to wheelchair | | | | [place] [address] | | clinic) | | | | [phone] | | | +--------+ + + + [...] Telephone Encounter - Anne Neal RN - 03/21/2020 12:48 PM PDTCalled and left another message for CM Ruma Slater [phone]. Waiting for return call. Electronically signed by: Anne Neal RN 03/21/2020 12:48 PM PDT elephone Encounter - Anne Neal RN - 03/20/2020 2:36 PM PDTOutpatient Case Management: Follow up about custom wheelchair. I called [...] is in regular commu nication with his [employer] employment evaluator/case manager: Papito Slater: [phone]. I asked Gia if s he would mention to the CM that he needs a custom wheelchair. She will tell her. Gia states that Alin also needs an IPAD with a communication kajal. She needs to work with the CM to get that for Alin. I will call CM Ruma Bryon again to talk about Alin's needs. Gia [...] 2019 | Visit | | [address] [facility] | | | | | | [facility] | | | | | | [address] | | | | | | | | +--------+---------+ + + + documented as of this encounter Visit Diagnoses Not on filedocumented in this encounter"
--- OUTSIDE RECORDS SUMMARY | ~2020-03-21 | XMS | Encounter Summary ---
Demographics + + + | Address | [address] | | | [place] [address] | + + + | Home Phone [...] Samantha Ramos | ECON | [address] # | | | | | [place] | | | | | [address] | | + + + + + Care Team Providers + +------+ + | Care Test Examiner Name | Role | Phone | + [...] 2019 | | Center at [facility] [address] | [address] | Review | | | | [address] | [address] | | | | | Mailcode: Center | [place], [place] | | | | | [facility] and | [address] | | | | | [facility] 2 | [phone] | | | | | [place], [place] | | | | | | [address] | | | | | | [phone] | | | +--------+ + + + [...]
--- OUTSIDE RECORDS SUMMARY | ~2020-03-21 | XMS | Encounter Summary ---
Demographics + + + | Address | [address] | | | [place] [address] | + + + | Home Phone | | + + + | Preferred Language | Unknown | + + + | Marital Status | Single | + + + | Moravian Affiliation | NON | + + + [...] Samantha Ramos | ECON | [address] # | | | | | [place] | | | | | [address] | | + + + + + Care Team Providers + +------+ + | Care Commercial Stripper Name | Role | Phone | + [...] | Only | [facility] [address] | [address] | | | | | [address] | [address] | | | | | Mailcode: PV430 | [place] [address] | | | | | [facility] | [phone] | | | | | [place], [place] | | | | | | [address] | | | | | | [phone] | | | +--------+ + + + [...]
--- OUTSIDE RECORDS SUMMARY | ~2020-03-21 | XMS | Encounter Summary ---
Demographics + + + | Address | [address] | | | [place] [address] | + + + | Home Phone [...] Samantha Ramos | ECON | [address] # | | | | | [place] | | | | | [address] | | + + + + + Care Team Providers + +------+ + | Care Yard Hostler Name | Role | Phone | + [...] | | | | | Procedures | [place], [place] | floor | | | | | CONSULT TO | [address] | [place], [place] | | | | | GI PROCEDURE | Phone: | [phone] | | | | | UNIT: EGD | [phone] | Phone: | | | | | | Fax: | [phone] | | | | | | [phone] | Fax: | | | | | | | [phone] | + +--------+ + + + + [...] Ave | | | | | s ([facility]) | [facility] | Mailcode: | | | | | Procedures | [facility] | Center for | | | | | CONSULT TO | Rd | Health and | | | | | SURGERY - | [facility] [place] | [facility], | | | | | GENERAL | [address] | Building 2 | | | | | CONSULT TO | Phone: | [place], [place] | | | | | SURGERY - | [phone] | [address] | | | | | GENERAL | Fax: | Phone: | | | | | | [phone] | [phone] | | | | | | | Fax: | | | | | | | [phone] | +--------+--------+ + + + + Encounter [...] | | | [address] | [place], [place] | (Primary Dx) | | | | Mailcode: [place] | [address] | | | | | for Health and | [phone] | | | | | [facility] 2 | | | | | | [facility] [place] | | | | | | [address] | | | | | | [phone] | | | +--------+---------+ + + + [...] might be different fr om the original. [facility] [...] was mildly elevated but no evidence of NM. V/Q was neg f or PE. Functional [...] Vitals reviewed. Labs/Cultures/Pathology: HBA1c 9.8% Imaging/Diagnostic Studies: [place] GASTRIC EMPTYING STUDY 07/25/19: - No report - Severe gastroparesis seen OR GASTRIC EMPTYING STUDY Order: [id number] Status: Final result Visible to patient: No (Not Released) Details Reading Physician Reading Date Result Priority Emmanuel Mohamud MD 08/27/2015 Routine Component 3yr ago OR GASTRIC EMPTYING EXAM: Gastric emptying study on [...] patient was seen in conjunction with Dr. Stevne, attending physician, who agrees with t he above plan. Silke Flores MD [facility] Pager #[phone] STAFF: A resident assisted with documenting this [...]
--- OUTSIDE RECORDS SUMMARY | ~2020-03-21 | XMS | Encounter Summary ---
Demographics + + + | Address | [address] | | | [place] [address] | + + + | Home Phone [...] Samantha Ramos | ECON | [address] # | | | | | [place] | | | | | [address] | | + + + + + Care Team Providers + +------+ + | Care Director Of Student Aid Name | Role | Phone | + [...] | | | | | diabetes | [place], [place] | for Health | | | | | mellitus | [address] | and Healing, | | | | | ([facility]) | Phone: | Building 2 | | | | | Procedures | [phone] | [place], [place] | | | | | CONSULT TO | Fax: | [address] | | | | | GI PROCEDURE | [phone] | Phone: | | | | | UNIT: EGD | | [phone] | | | | | | | Fax: | | | | | | | [phone] | + +--------+ + + + + [...] | | 2019 | | Center at [facility] [address] | [address] [facility] | EGD w/ pyloric | | | | [address] | [address] | botox) | | | | Mailcode: Center | [place], [place] | | | | | [facility] and | [address] | | | | | [place] [address] | [phone] | | | | | [place], [place] | | | | | | [address] | | | | | | [phone] | | | +--------+ + + + [...]
--- OUTSIDE RECORDS SUMMARY | ~2020-03-21 | XMS | Encounter Summary ---
Demographics + + + | Address | [address] | | | [place] [address] | + + + | Home Phone [...] [place] | | | | | [address] | | + + + + + Care Team Providers + +------+ + | Care Brim Curler Name | Role | Phone | + [...] | Services | ogy | Diabetic | [facility] | Greg Bernardo MD | | | Required | | gastroparesi | [place], | [address] | | | | | s (HCC) | BIOMEDICAL FIELD SERVICE ENGINEER [address] | | | | | Malnutrition | [address] | [address] | | | | | , | [address] | [place], [place] | | | | | unspecified | [place], | [address] | | | | | type (HCC) | [place] [address] | Phone: | | | | | Weight loss | Phone: | [phone] | | | | | | [phone] | Fax: | | | | | | Fax: | [phone] | | | | | | [phone] | | +--------+ + + + + + Encounter Details +--------+ + + + + | Date | Type | Department | Care Team | Description | +--------+ + + + + | 02/21/ | Orders Only | [facility] [place] | [place], | Malnutrition, | | 2019 | | GASTROENTEROLOGY | [place] [address] | unspecified type | | | | [address] | [address] | (HCC) (Primary Dx); | | | | [address] [place], [place] | [place], [place] | Diabetic | | | | [address] | [address] | gastroparesis (HCC); | | | | [phone] | | Weight loss | +--------+ + [...] 2020 | Visit | | [address] [facility] | | | | | | 160 [place], [place] | | | | | | [address] | | | | | | | [...] | | | | | ([facility]) Weight loss | | + + +--------+ + + documented as of this encounter Visit Diagnoses + + | Diagnosis | + + | Malnutrition, unspecified type ([facility]) - Primary | + + | Diabetic gastroparesis ([facility]) 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
--- OUTSIDE RECORDS SUMMARY | ~2020-03-21 | XMS | Encounter Summary ---
Demographics + + + | Address | [address] | | | [place] [address] | + + + | Home Phone [...] Samantha Ramos | ECON | [address] # | | | | | [place] | | | | | [address] | | + + + + + Care Team Providers + +------+ + | Care Auction Assistant Name | Role | Phone | [...] | | 2019 | | Center at [facility] [address] | [address] | Appointment | | | | [address] | [facility], | | | | | Mailcode: [place] | [place] [address] | | | | | for Health and | [phone] | | | | | [facility] 2 | | | | | | [place], [place] | | | | | | [address] | | | | | | [phone] | | | +--------+ + + + [...]
--- OUTSIDE RECORDS SUMMARY | ~2020-03-21 | XMS | Encounter Summary ---
Demographics + + + | Address | [address] | | | [place] [address] | + + + | Home Phone [...] Samantha Ramos | ECON | [address] # | | | | | [place] | | | | | [address] | | + + + + + Care Team Providers + +------+ + | Care Candy Depositing Machine Operator Name | Role | Phone [...] | Activity | [address] | [address] | | | | | [place] Mailcode: RPB07 | [address] | | | | | [place], [place] | [place], [place] | | | | | [address] | [address] | | | | | [phone] | [phone] | | | | | | | [...] | + + + + + | [facility] | [address] | [place] [address] | | | PATHOLOGY | [address] | | | + + + + + | [facility] | [address] | [place] [address] | | | PATHOLOGY | [address] | | | + + + + + documented in this encounter Visit Diagnoses Not on filedocumented in this encounter"
--- OUTSIDE RECORDS SUMMARY | ~2020-03-21 | XMS | Encounter Summary ---
Demographics + + + | Address | [address] | | | [place] [address] | + + + | Home Phone [...] Samantha Ramos | ECON | [address] # | | | | | [place] | | | | | [address] | | + + + + + Care Team Providers + +------+ + | Care Real Property Evaluator Name | Role | Phone | + +------+ + | Erich Yates PA-C | PCP | | + +------+ + Encounter Details +--------+ + + + + | Date | Type | Department | Care Team | Description | +--------+ + + + + | 01/05/ | Outside | UNKNOWN DEPARTMENT | Other, Faculty | | | 2020 | Records | [address] [facility] | [phone] | | | | | [address] | | | | | | [place], [place] | | | | | | [address] | | | +--------+ + + + [...]
--- OUTSIDE RECORDS SUMMARY | ~2020-03-21 | XMS | Encounter Summary ---
Demographics + + + | Address | [address] | | | [place] [address] | + + + | Home Phone | | + + + | Preferred Language | Unknown | + + + | Marital Status | Single | + + + | Faith Affiliation | NON | + + + [...] Samantha Ramos | ECON | [address] | | | | | [place] | | | | | [address] | | + + + + + Care Team Providers + +------+ + | Care Spar Finisher Name | Role | Phone | + +------+ + | Neri Mojica MD | PCP | | + +------+ + Encounter Details +--------+ + + + + | Date | Type | Department | Care Team | Description | +--------+ + + + + | 07/16/ | Documentati | Orthopaedics at | N[place]gar[place], | | | 2005 | on | [address] | [address] | | | | | [address] | [address] | | | | | Mailcode: PV[address] | [facility] [place] | | | | | [facility] | [address] | | | | | [place], [place] | [phone] | | | | | [address] | | | | | | [phone] | | | +--------+ + + + [...]
--- OUTSIDE RECORDS SUMMARY | ~2020-03-21 | XMS | Encounter Summary ---
Demographics + + + | Address | [address] | | | [place] [address] | + + + | Home Phone | | + + + | Preferred Language | Unknown | + + + | Marital Status | Single | + + + | [employer] Affiliation | NON | + + + [...] Samantha Ramos | ECON | [address] | | | | | [place] | | | | | [address] | | + + + + + Care Team Providers + +------+ + | Care Case Manager Specialist Name | Role | Phone | [...] | | | | | diabetes | [place], [place] | floor | | | | | mellitus | [address] | [place], [place] | | | | | (HCC) | Phone: | [address] | | | | | Procedures | [phone] | Phone: | | | | | CONSULT TO | Fax: | [phone] | | | | | ENDOSCOPY | [phone] | Fax: | | | | | UNIT: EGD | | [phone] | + +--------+ + + + + [...] | | 2020 | | Center at [facility] [address] | [address] [facility] | | | | | Zee Nguyen | [place], | | | | | Mailcode: [place] | [place] [address] | | | | | for Health and | [phone] | | | | | [facility] [address] | | | | | | [place], [place] | | | | | | [address] | | | | | | [phone] | | | +--------+ + + + [...]
--- OUTSIDE RECORDS SUMMARY | ~2020-03-21 | XMS | Encounter Summary ---
Demographics + + + | Address | [address] | | | [place] [address] | + + + | Home Phone [...] [place] | | | | | [address] | | + + + + + Care Team Providers + +------+ + | Care Crochet Beader Name | Role | Phone | + [...] | | complication | [place], | [place] [address] | | | | | s ([facility]) | [place] [address] | Phone: | | | | | Unspecified | Phone: | [phone] | | | | | abdominal | [phone] | Fax: | | | | | pain | Fax: | [phone] | | | | | Functional | [phone] | | | | | | intestinal [...] Dx); Weight | | | | [address] [place], [place] | [place], [place] | loss; Malnutrition, | | | | [address] | [address] | unspecified type | | | | [phone] | | ([facility]); 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 Patient significantly malnourished due [...] 2019 | Visit | | [address] [facility] | | | | | | [address] [place], [place] | | | | | | [address] | | | | | | | [...]
--- OUTSIDE RECORDS SUMMARY | ~2020-03-21 | XMS | Encounter Summary ---
Demographics + + + | Address | [address] [address] | | | [place] [address] | + + + | Home Phone [...] [place] | | | | | [address] | | + + + + + Care Team Providers + +------+ + | Care Talent Scout Name | Role | Phone | + [...] | | | | | | s (FORM[facility]LY [facility]) | [address] | | | | | | Fissure in | [address] [place] | | | | | | skin of foot | [place], [place] | | | | | | | [address] | | | | | | | Phone: | | | | | | | [phone] | | | | | | | Fax: | | | | | | | [phone] | | +--------+ + + + + [...] + + | 02/14/ | Hospital [facility] | Alexandr Smalls MD | Diabetic | | 2019 - | Encounter | [facility] | [address] | gastroparesis (HCC) | | | | [address] [place] | [place] | (Primary Dx); Acute | | 02/20/ | | [place] [address] | [id number] | kidney injury | | 2019 | | [phone] | | superimposed on | | | | | Meggan Cary, | chronic kidney | | | | | [address] | disease (HCC); | | | | | [place] | Anemia of chronic | | | | | [address] | renal failure, stage | | | | | | 3 (moderate) (HCC); | | | | | Savage Saavedra | Community acquired | | | | | DO Neri [address] | pneumonia of right | | | | | [address] [place] | lower lobe of lung; | | | | | [place] [address] | Current smoker; | | | | | [phone] | Hyperkalemia; Type 1 | | | [...] | | | | | | ([facility]) | +--------+ + + + + [...] Physician Discharge Summary Patient ID: Brooks Marquez [id number] 29 y.o. 1990 Admit date: 02/15/2020 Discharge [...] PO lasix which will be continued at [facility]. He did not require HD but may in the future, he has been referred to a [facility] nephrolo gist to establish care and may [...] logan and to Dr. Whitman, your new applications engineering manager. Addendum: 1. Do not take your Lisinopril until you see Dr. Whitman, your Teaseler. 2. You are very close to needing outpatient Hemodialysis, and you need to have a Consulta tion with a Vascular Surgeon, Drs. Sandoval and Bin, in [place], [place]. 3. Please avoid blood draws and BP in your Left arm, for your future AV fistula. 4. Your medications have changed slightly. Please follow the new list, until you meet wit h your PCP and Teaseler. Probiotics Patient Discharge Information Sheet Probiotics are [...] flavors available): 8 ounces per day ? [place] Fresh Yogurt (many flavors available): 6 ounces [...] Gary DO - 02/20/2020 6:56 PM PDT [facility] [address] [place] [address] PROGRESS NOTE Pt. Name/Age/: Brooks Marquez 29 y.o. 1990 Med. Record Number: [id number] Date of admission: 02/15/2020 NEPHROLOGY HPI - Pt was seen at 0940. He is still minimally X-ferring, almost 100% assist, and inte rmittently depressed. 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 one year." Lab Results Component [...] and neuropathy-- appears of dubious c ontrol, mcc. 5. Diabetic foot ulcer, Left heel-- no [...] permanently < 15 ml/min. No need for PUBLIC HEALTH VETERINARIAN till the n. 3. He needs early construction of an AVF, not available here, with snf of our only V ascular Surgeon. 4. Will discuss case with Hospitalist, and Care Managers. No simple solution, however, pt would be Best served in an LTAC, if he consents?? [facility] Stephanie Villa, PharmD - 02/20/2020 3:05 PM [...] medications discrepancies or medication-related issues: Dosage/Form/Frequency change: FEDERAL MEDIATOR Medication: Prior to Admission Sig: Correct Sig: [...] her son, he is currently using Jeanette Urbanna (sodium bicarbonate-citric acid.) Medication: Prior to Admission Sig: Patient taking differently FEDERAL MEDIATOR as: Hydrocodone-Acetaminophen 10-325 mg tablet Take 1 [...] nt takes 1 tablet daily Best possible FEDERAL MEDIATOR medication list after pharmacy review: PT REPORTED [...] performed and electronically signed by Kay Cleary, Solar Field Service Technician 02/20/2020 12:34 PM Reviewed by Stephanie Ramirez, PharmD 02/20/2020 1:52 PM Savage Acuña, DO - 02/20/2020 1:27 PM PDTFormatting of this note might be different from the origi nal. [facility] Hospitalist Progress Note Brooks Marquez is [...] effusion. The major tendons withi n the byntn-rl-gbpd are grossly intact. No evidence for osteomyelitis. [...] above. Savage Saavedra DO 02/20/2020 1:27 PM [facility] Portions of this chart may have been created with Goombal voice recognition software. Occasi onal wrong-word or sound-alike substitutions may have occurred due to the inherent lin itations of voice recognition software. Please read the chart carefully and recognize, using context, where these substitutions have occurred Romelia Acuña DO - 02/19/2020 11:31 AM PDTFormatting of this note might be different from the or iginal. [facility] Hospitalist Progress Note Brooks Marquez is [...] above. Savage Saavedra DO 02/19/2020 11:31 AM [facility] Portions of this chart may have been created with Goombal voice recognition software. Occasi onal wrong-word or sound-alike substitutions may have occurred due to the inherent lin itations of voice recognition software. Please read the chart carefully and recognize, using context, where these substitutions have occurred Shannan Sage DO - 02/19/2020 9:57 AM PDTFormatting of this note might be different from the origi nal. [facility] [address] [place] [address] PROGRESS NOTE Pt. Name/Age/: Brooks Marquez 29 y.o. 1990 Med. Record Number: [id number] Date of admission: 02/15/2020 NEPHROLOGY HPI - [...] he may require maintenance HD, Outpatient in [facility], when his GFR is permanently < 15 [...] place? Discusse d above with Dr. Saavedra. [facility] Roxie Sage DO - 02/18/2020 4:07 PM PDT . [facility] [address] [place], [place] [address] PROGRESS NOTE Pt. Name/Age/: Brooks Marquez 29 y.o. 1990 Med. Record Number: [id number] Date of admission: 02/15/2020 NEPHROLOGY HPI - [...] Hb is stable , prior to that. [facility] Javon Dong M D - 02/18/2020 7:32 AM PDT [facility] Hospitalist Progress Note Brooks Marquez is [...] diabetic ulcer No surrounding erythema. No Palpable FEDERAL MEDIATOR. On examination with Doppler the patient has [...] d which is been followed in a [place] [facility]. Reports diarrhea has improved. VITALS: Temp: 36.2 C (97.2 F), Pulse: 97, Resp: 20, BP: (!) 178/99, SpO2 99 % on room air at fl ow rate L/min Temp Min: 36.1 C (96.9 F) Max: 36.2 C (97.2 F) Weight: 70.4 kg (155 lb 1.6 oz) Intake/Output Summary (Last 24 hours) at 02/18/2020 0711 Last data filed at 02/18/2020 0641 Gross [...] cell ulitis. I cannot palpate the patient's FEDERAL MEDIATOR and on Doppler examination FEDERAL MEDIATOR is easily heard and not c ompressible [...] above. Javon Faust MD 02/18/2020 7:33 AM [facility] Portions of this chart may have been created with Goombal voice recognition software. Occasi onal wrong-word or sound-alike substitutions may have occurred due to the inherent lin itations of voice recognition software. Please read the chart carefully and recognize, using context, where these substitutions have occurred Roixe Sage D O - 02/17/2020 2:49 PM PDT [facility] [address] [place] [address] PROGRESS NOTE Pt. Name/Age/: Brooks Marquez 29 y.o. 1990 Med. Record Number: [id number] Date of admission: 02/15/2020 NEPHROLOGY HPI - [...] his 1 Caregiver? Will request from Nursing? [facility] Rita Forrester RN - 02/17/2020 1:35 PM [...] Dong MD - 02/17/2020 10:56 AM PDT [facility] Hospitalist Progress Note Brooks Marquez is [...] diabetic ulcer No surrounding erythema. No Palpable FEDERAL MEDIATOR. On examination with Doppler the patient has a Do ppler pulse which is not compressible to 300 mmHg consistent with a calcified vessel. SUBJECTIVE: Patient reports profound fatigue. Denies any recent fevers. He does have a left foot woun d which is been followed in a [place] [facility] VITALS: Temp: 36.2 C (97.2 [...] surrounding cellulitis. I cannot palpate the patient's FEDERAL MEDIATOR and on Doppler examination FEDERAL MEDIATOR is easily heard and not c ompressible [...] above. Javon Faust MD 02/17/2020 10:57 AM [facility] Portions of this chart may have been created with Goombal voice recognition software. Occasi onal wrong-word or sound-alike substitutions may have occurred due to the inherent lin itations of voice recognition software. Please read the chart carefully and recognize, using context, where these substitutions have occurred arker, Javon Guerra MD - 0 02/16/2020 8:20 AM PDT [facility] Hospitalist Progress Note Brooks Marquez is [...] oral bicarbonate therapy. Patient is followed in [place]. No AV fistula has been placed yet. [...] above. Javon Faust MD 02/16/2020 8:20 AM [facility] Portions of this chart may have been created with Goombal voice recognition software. Occasi onal wrong-word or [...] homed meds Chronic pain - continue prn Marengo Chronic left foot ulcer -Does not appear [...] such, he will be deemed Full Code. [facility] Documentation I expect this patient will be hospitalized for greater than 2-midnights and expect the post -hospital plan to be discharge to home or to an adult foster home. 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 Occasi onal wrong-word or [...] Murrell DO - 02/16/2020 12:12 PM PDT [facility] [address] [place] [address] NEPHROLOGY CONSULT Pt. Name/Age/: Brooks Marquez 29 y.o. 1990 Med. Record Number: [id number] Date of admission: 02/15/2020 Reason for consultation: EULOGIO in the setting of CKD Referring Provider: Javon Faust MD HPI: Asked to see this 29 YOWM who was transferred from the ER at [facility], [place] last devendra medrano. Apparently, he was at [...] CKD which is followed by his Primary Teaseler, Dr. Winston dinero, in [place]. Apparently, his Scr was above his previous baseline and he had mild hype rkalemia therefore it was elected to send him to [facility]. It appears that his previous Scr wa s 1.77 mg/dl, on 06/10/2019, he subsequently had EULOGIO surrounded by an episode of DKA at [facility] on 01/06/2020 with peak Scr = 4.16 which improved to 2.67 mg/dl at discharge. He then prese nted to [facility] yesterday with a Scr = 4.24 mg/dl [...] CKD and his recent UACR obtained at [facility] is very abnormal from the transfer records available with a urine Pro/Cr = 8669 mg/g which suggests established diabetic nephropathy and heavy macroalbuminuria. He states that he was diagnosed with Type 1 DM at Age 11, and has known diabetic retinopathy. He states that this has been followed closely by his Graduate Internship, but he has not yet had to have laser surgery for his retinopathy. He also admits to Hypertension x 3 years. It is noteworthy that he has been very appropriately treated with an ACEI, lisinopril for some time. He understands that he does have established CKD from his discussions with both Dr. Can cornell and Dr. Whitman, his Teaseler's in the past, he tells me. He [...] He has not been seen by an Float Phlebotomist in the past, but states that he has an approaching appointment with 1 in the next 6 months in the [facility]. Additionally has had previous admissions for DK A here at [facility] most recently on 01/05-01/09. 3. Hypertension x 3 years per the patient. 4. Apparently history of severe diabetic gastroparesis in the past. He has even been seen at the digestive [facility] for the intractable gastroparesis at [facility]. 5. Normochromic, normocytic anemia suspicious [...] his mother. 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 [...] may benefit from additional input from an Float Phlebotomist at some point? 4. Leukocytosis with diarrhea, [...] Will follow the patient wit h you. [facility] CC: MD Emmanuel Powell MD Fadi Akoum, [...] patient to discharge today. Phone call to [facility], transportation set up for 1500 today. 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 Bed-Chair, Level of Douglas: contact guard assist, verbal cues required, set up requir ed Jgg-Jdfrw-Key, Assistive Device: wheelchair Impairments: impaired balance, strength decreased, decreased flexibility, motor control imp aired Bed Mobility Patient mobilizes slowly. with extra time and effort able to complete bed mobility supine t o EOB without physical assistance. 2P present for safety Assistive Device: bed rails, HOB elevated Roll Left, Level of Douglas: contact guard assist, set up required, verbal cues requir ed Roll Right, Level of Douglas: contact guard assist, verbal cues required, set up requi red Supine to Sit, Level of Douglas: contact guard assist, verbal cues required Safety [...] STG Status progressing at 02/20/2020 1131 STG Douglas Level modified independent at 02/19/2020 0933 STG Assistive Device bed rails, HOB elevated at 02/19/2020 0933 Yuysjqunt-Wxa-Nyarifjxi Goal Most Recent Value STG Status progressing at 02/20/2020 1131 STG Douglas Level modified independent at 02/19/2020 0933 STG Assistive Device HOB elevated, bed rails at 02/19/2020 0933 Xxk-Osacs-Etb Goal Most Recent Value STG Status progressing at 02/20/2020 1131 STG Douglas Level modified independent at 02/19/2020 0933 STG Assistive Device 2 wheeled walker (FWW), sliding board at 02/19/2020 0933 Tqu-Milqz-Ena Goal Most Recent Value STG Status new at 02/19/2020 0933 STG [place] Level modified independent at 02/19/2020 0933 STG [...] affecting UB dressing UB Dressing, Level of Douglas: set up required Assistive Device: none UB Dressing Assess/Train, Position: sitting UB Dressing Impairments: decreased flexibility, ROM decreased, strength decreased, impaired functional endurance/activity tolerance Assist for threading shorts at LLE though otherwise pt able to roll L/R in bed for bringing shorts up the rest of the way. LB Dressing, Level of Douglas: minimal assist (75% patient effort), 1 person [...] rails, HOB elevated Roll Left, Level of Douglas: contact guard assist, set up required, verbal cues requir ed, 1 person + 1 person to manage equipment Roll Right, Level of Douglas: contact guard assist, verbal cues required, set up requi red, 1 person + 1 person to manage equipment Supine to Sit, Level of Douglas: contact guard assist, verbal cues required, set [...] at 1+1 assist level. Bed-Chair, Level of Douglas: contact guard assist, verbal cues required, set up requir ed Jyz-Btodp-Qnm, Assistive Device: wheelchair Impairments: impaired balance, strength decreased, decreased flexibility, motor control imp aired OT Goal Review Date Most Recent Value STG Review Date 02/24/20 at 02/17/2020 1824 Eating/Self Feeding Goal Most Recent Value STG Status new at 02/19/2020 1007 STG Douglas Level modified independent at 02/19/2020 1007 UB Dressing Goal Most Recent Value STG Status met at 02/20/2020 1129 STG Douglas Level set up required at 02/19/2020 1007 LB Dressing Goal Most Recent Value STG Status met [for pants] at 02/20/2020 1129 STG Douglas Level minimum assist (75% patient effort) at 02/19/2020 1007 Toilet Transfer Goal Most Recent Value STG Status continued at 02/19/2020 1007 STG Douglas Level minimum assist (75% patient effort) at [...] upset that all of the staff at [facility] has been discussing with him discharging to an LTAC. Alin is very addiment that he will not discharge anywhere but to his home and is tired of everyone talking to him about everyt hussain but discharging to his home. Samantha states she has been a VP [employer] for most of her life and feels [...] until she can have the PCP or applications engineering manager refill the anti -depressant. Mom states that the patient will need a ride home. Alin uses [facility] [phone] has assisted with patient transportation in the past. DISCHARGE PLAN: Home with mom, (Samantha) and [facility] when stable. Alin will need to have [facility] [phone] transportatio n arranged ahead of time. P [...] creatinine 4.2 (~2.6) around 2.At the outs [facility] the labs were consistently abnormal and he was transferred here for higher [facility] l of care. Patient reports he [...] difficulty [facility] without assistance. He reports decreased appetite [...] a new one thru [facility] in [place]. According to the patient's mother, he was i ssued the current 16 inch wide standard hospital chair and it is too difficult for him to us e so at the vendor is working with [facility] to try to get him another [...] left a message for Ruma Slater, his field case manager at [facility] at . That number went to [...] ROM (Range of Motion), strengthen ing, stretching, nauruan ball techniques, transfer training, wheelchair management/propulsion training [...] in the bedside chair. Bed-Chair, Level of Douglas: maximal assist (25% patient effort) Chair-Bed, Level of Douglas: maximal assist (25% patient effort) Pwp-Nafku-Jfj, Assistive Device: none Bed Mobility pt moves very slowly, significant effort to transition to upright, even using bed features he is barely able to maintain upright sitting with support from upper limbs Assistive Device: bed rails, HOB elevated Supine to Sit, Level of Douglas: moderate assist (50% patient effort) Safety Issues: [...] STG Status new at 02/19/2020 0933 STG Douglas Level modified independent at 02/19/2020 0933 STG Assistive Device bed rails, HOB elevated at 02/19/2020 0933 Pwrwhfrtm-Umz-Lvnssuhjo Goal Most Recent Value STG Status new at 02/19/2020 0933 STG Douglas Level modified independent at 02/19/2020 0933 STG Assistive Device HOB elevated, bed rails at 02/19/2020 0933 Ucg-Fkftn-Iwp Goal Most Recent Value STG Status new at 02/19/2020 0933 STG Douglas Level modified independent at 02/19/2020 0933 STG Assistive Device 2 wheeled walker (FWW), sliding board at 02/19/2020 0933 Kqw-Ssdfj-Mif Goal Most Recent Value STG Status new at 02/19/2020 0933 STG Douglas Level modified independent at 02/19/2020 0933 STG [...] bed rails Supine to Sit, Level of Douglas: contact guard assist, verbal cues required Safety [...] hand, has tendodesis type of mobility. 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 Pt reports an incident [...] STG Status new at 02/19/2020 1007 STG Douglas Level modified independent at 02/19/2020 1007 UB Dressing Goal Most Recent Value STG Status new at 02/19/2020 1007 STG Douglas Level set up required at 02/19/2020 1007 LB Dressing Goal Most Recent Value STG Douglas Level minimum assist (75% patient effort) at 02/19/2020 1007 Toilet Transfer Goal Most Recent Value STG Status continued at 02/19/2020 1007 STG Douglas Level minimum assist (75% patient effort) at [...] injury. He has had complaints of pain, Marengo given x1. His vitals signs have been stable, his diastoli c has been high but doctor has been aware. [facility] His BG has been higher, still [...] was scheduled to have MRI. Spoke w [facility] medical appointment scheduler and recommended PT/OT co-tx tomorrow for pt [...] care was provided today in consultation w/ Audio Video Technician. Following pt needed assistance after use of [...] trimmed to size in wound bed, applied [place] Foam. Wrapped foot lightly w/ Kerlex to secure dressings in place. ADLs Deferred addt'l ADLs for future visits. Focus this session was toileting, bed mobility, wo und mgmt. Pt on bedbpan- limited OOB abilities. Able to roll L/R w/ set-up and SBA for safety w/ pos itioning. Full assist for the hygiene. Toileting, Level of Douglas: 2 person assist required, dependent ( less [...] bed rails Supine to Sit, Level of Douglas: stand by assist, verbal cues required Safety [...] Value STG Status new at 02/17/20201823 STG Douglas Level minimum assist (75% patient effort) at 02/17/20201823 OT Time Calculation OT Individual Start Time: 1748 OT Individual Stop Time: 1823 OT Individual Total Time: 35 OT Total Treatment Time: 35 Timed TX Code Minutes: 20 Electronically signed by: Beth Camarillo OT, 02/17/2020 6:48 PM lan of Care - [facility] elizabeth, Hedy Tan RN - 02/17/2020 5:45 [...] evening, Dr. Govind robin, passed on to restaurant shift leader. Pt has new midline, changed to 'Unit Collect'. BMP sent to lab. Pt calls for assistance. No falls/injury. Electronically s igned by Hedy Corea RN at 02/17/2020 7:40 PM PDTPlan of Care - Beth Camarillo OT - 02/17/2020 5:13 PM PDT Occupational Therapy No n-Bill Visit MD consulted w/ OT regarding L foot wound. Audio Video Technician not available in-house th is day. Photos were taken and uploaded into Media tab so they may be reviewed remotely. Also initiated interview portion of OT evaluation to begin tomorrow. Electronically signed by: Beth Camarillo OT 02/17/2020 5:16 PM lan of [facility] - Sue Montaño RN - 02/17/2020 4:10 AM PDTKeith is A/O x4 nd free of falls during shift. C/ O left leg and hand pain. Tx with Marengo per order x1. D5 w/sodium bicarb running [...] falls or injuries, C/o general pain with Marengo given.Electronically si gned by Jerome Prado RN at 02/16/2020 6:09 PM PDTPlan of [facility] - Jennifer Nolasco MSW - 02/16/2020 12:51 PM PDTIn to see patient to discuss discharge planning. Patient states he is tired, didn't get much sleep. Asked about his discharge plan, his plan is to return home. Asks this keno writer / runner to call his mom. Phone call to [...] patient will need a ride home, states [facility] [phone] has assisted with patient transportation in the [...] [place] | | | | | | [address] | | | | | | | [...] + | [facility] | [address] | [place] | [phone] | | [facility] | | [address] | | | - LABORATORY | | [...] [address] | [place] | [phone] | | [facility] | | [address] | | | - LABORATORY | | [...] [address] | [place] | [phone] | | [facility] | | [address] | | | - LABORATORY | | [...] + | [facility] | [address] | [place] | [phone] | | [facility] | | [address] | | | - LABORATORY | | [...] | mL/min/1.73m2 | MEGGAN | | | MALIAN | RATE,ESTIMATED | | MEDICAL | | | | mL/min/1.31m0Tncc than | | CENTER - | | [...] + | [facility] | [address] | [place] | [phone] | | [facility] | | [address] | | | - LABORATORY | | [...] + | [facility] | [address] | [place], [place] | [phone] | | [facility] | | [address] | | | - LABORATORY | | [...] [address] | [place] | [phone] | | [facility] | | [address] | | | - LABORATORY | | [...] + | [facility] | [address] | [place] | [phone] | | [facility] | | [address] | | | - LABORATORY | | [...] + | [facility] | [address] [address] | [place] | [phone] | | [facility] | | [address] | | | - LABORATORY | | [...] + + | Performing | Address | City/State/[facility] | Phone Number | | Organization | | | | + + + + + | [facility] | [address] | [place] | [phone] | | [facility] | | [address] | | | - LABORATORY | | [...] + | [facility] | [address] | [place] | [phone] | | [facility] | | [address] | | | - LABORATORY | | [...] mL/min/1.73m2 | [facility] | | | MALIAN | RATE,ESTIMATED | | MEDICAL | | | | mL/min/1.80e0Otad than | | CENTER - | | [...] 7.2 (L) | 8.7 - 10.4 | [facility] | | | | | mg/dL | [...] | ine Ratio | | | [facility] | | | | | | MEDICAL [...] + | [facility] | [address] | [place] | [phone] | | [facility] | | [address] | | | - LABORATORY | | [...] test | | | | | | ([id number]). | | | | + + + + + + + + | Specimen | + + | Blood | + + + + + | Narrative | Performed At | + + + | Performed at: 01 - [facility] [place] [address], | REFERENCE LAB | | [place], [place] [id number] Delivery Director: Jerome Agudelo MD, Phone: | [facility] | | [phone] | | + + + + + + + + | Performing | Address | City/State/Zipcode | Phone Number | | Organization | | | | + + + + + | REFERENCE LAB | [address] | [place], [place] | [phone] | | [facility] | Drive [facility] | [address] | | + + + + + [...] [address] | [place] | [phone] | | [facility] | | [address] | | | - LABORATORY | | [...] [address] | [place] | [phone] | | [facility] | | [address] | | | - LABORATORY | | [...] + | [facility] | [address] | [place] | [phone] | | [facility] | | [address] | | | - LABORATORY | | [...] [address] | [place] | [phone] | | [facility] | | [address] | | | - LABORATORY | | [...] + | [facility] | [address] | [place] | [phone] | | [facility] | | [address] | | | - LABORATORY | | [...] [address] | [place] | [phone] | | [facility] | | [address] | | | - LABORATORY | | [...] major | | | tendons within the newyy-ns-mghn are grossly intact. | | + + [...] effusion.The major tendons within the | | hzrqd-ca-uqby are grossly intact.IMPRESSION: No evidence for osteomyelitis.Diffuse [...] | | |The major tendons within the szunq-hn-fadv are grossly intact. | | | |IMPRESSION: [...] [address] | [place] | [phone] | | [facility] | | [address] | | | - LABORATORY | | [...] | + + + + + | [facility] | [address] | [place] | [phone] | | [facility] | | [address] | | | - LABORATORY | | [...] [address] | [place] | [phone] | | [facility] | | [address] | | | - LABORATORY | | [...] not | 19 (L)Comment: | >=60 | [facility] | | | | GLOMERULAR FILTRATION | mL/min/1.73m2 | [facility] | | | MALIAN | RATE,ESTIMATED | | MEDICAL | | | | mL/min/1.07h0Jmla than | | CENTER - | | [...] 7.3 (L) | 8.7 - 10.4 | [facility] | | | | | mg/dL | [facility] | | | | [...] + | [facility] | [address] | [place] | [phone] | | [facility] | | [address] | | | - LABORATORY | | [...] 229 (H)Comment: New | <100 pg/mL | [facility] | | | | method in use [...] + | [facility] | [address] | [place] | [phone] | | [facility] | | [address] | | | - LABORATORY | | [...] [address] | [place] | [phone] | | [facility] | | [address] | | | - LABORATORY | | [...] + + + + + | [facility] | [address] | [place] | [phone] | | [facility] | | [address] | | | - LABORATORY | | [...] + | [facility] | [address] | [place] | [phone] | | [facility] | | [address] | | | - LABORATORY | | [...] [facility] | | | | | | [facility] | | | | | | MEDICAL | | | | | | CENTER - | | | | | | LABORATORY | | + + + + + + | Hemoglobin | 9.3 (L) | 13.5 - 18.0 | [facility] | | | | | g/dL | [facility] | | | | [...] [address] | [place] | [phone] | | [facility] | | [address] | | | - LABORATORY | | [...] [address] | [place] | [phone] | | [facility] | | [address] | | | - LABORATORY | | [...] + | [facility] | [address] | [place] | [phone] | | [facility] | | [address] | | | - LABORATORY | | [...] ST. | [address] | [place], [place] | [phone] | | [facility] | | [address] | | | - LABORATORY | | [...] [address] | [place] | [phone] | | [facility] | | [address] | | | - LABORATORY | | | | + + + + + Red Blood Cells (PRBC) - Crossmatch (02/18/2020 9:26 AM PDT) + + + + + + | Component | Value | Ref Range | Performed | Pathologist | | | | | At | Signature | + + + + + + | Product | [id number] | | [facility] | | | Code | | | [facility] | | | | | | MEDICAL | | | | | | CENTER - | | | | | | BLOOD BANK | | + + + + + + | UNIT # | [id number] | | [facility] | | | | [...] + + + + | Blood | [id number] | | [facility] | | | Product [...] | | [facility] | | [address] | | | - BLOOD BANK | | | | + + + + + Red Blood Cells (PRBC) - Crossmatch (02/18/2020 7:26 AM PDT) + + + + + + | Component | Value | Ref Range | Performed | Pathologist | | | | | At | Signature | + + + + + + | Product | [id number] | | [facility] | | | Code | | | [facility] | | | | | | MEDICAL | | | | | | CENTER - | | | | | | BLOOD BANK | | + + + + + + | UNIT # | [id number] | | [facility] | | | | [...] + + + + | Blood | [id number] | | [facility] | | | Product [...] | | [facility] | | [address] | | | - BLOOD BANK | [...] + | [facility] | [address] | [place] | [phone] | | [facility] | | [address] | | | - LABORATORY | | [...] + | [facility] | [address] | [place] | [phone] | | [facility] | | [address] | | | - LABORATORY | | [...] [address] | [place] | [phone] | | [facility] | | [address] | | | - LABORATORY | | [...] + | [facility] | [address] | [place] | [phone] | | [facility] | | [address] | | | - LABORATORY | | [...] [address] | [place] | [phone] | | [facility] | | [address] | | | - LABORATORY | | [...] (H) | 9 - 23 mg/dL | [facility] | | | | | | [facility] | | | | | | MEDICAL | | | | | | CENTER - | | | | | | LABORATORY | | + + + + + + | Creatinine | 3.83 (H) | 0.70 - 1.30 | [facility] | | | | | mg/dL | [facility] | | | | | | MEDICAL | | | | | | CENTER - | | | | | | LABORATORY | | + + + + + + | eGFR if not | 19 (L)Comment: | >=60 | [facility] | | | | GLOMERULAR FILTRATION | mL/min/1.73m2 | [facility] | | | MALIAN | RATE,ESTIMATED | | MEDICAL | | | | mL/min/1.79s5Zrvy than | | CENTER - | | [...] [address] | [place] | [phone] | | [facility] | | [address] | | | - LABORATORY | | [...] [address] | [place] | [phone] | | [facility] | | [address] | | | - LABORATORY | | [...] [address] | [place] | [phone] | | [facility] | | [address] | | | - LABORATORY | | [...] + | [facility] | [address] | [place] | [phone] | | [facility] | | [address] | | | - LABORATORY | | [...] mL/min/1.73m2 | [facility] | | | MALIAN | RATE,ESTIMATED | | MEDICAL | | | | mL/min/1.71l9Ctie than | | CENTER - | | [...] [address] | [place] | [phone] | | [facility] | | [address] | | | - LABORATORY | | [...] + | [facility] | [address] | [place] | [phone] | | [facility] | | [address] | | | - LABORATORY | | [...] + | [facility] | [address] | [place], [place] | [phone] | | [facility] | | [address] | | | - LABORATORY | | [...] + | [facility] | [address] | [place] | [phone] | | [facility] | | [address] | | | - LABORATORY | | [...] [address] | [place] | [phone] | | [facility] | | [address] | | | - LABORATORY | | [...] + | [facility] | [address] | [place] | [phone] | | [facility] | | [address] | | | - LABORATORY | | [...] [address] | [place] | [phone] | | [facility] | | [address] | | | - LABORATORY | | [...] | mL/min/1.73m2 | [facility] | | | MALIAN | RATE,ESTIMATED | | MEDICAL | | | | mL/min/1.72i8Zhim than | | CENTER - | | [...] ST. | [address] | [place], [place] | [phone] | | [facility] | | [address] | | | - LABORATORY | | [...] + | [facility] | [address] | [place] | [phone] | | [facility] | | [address] | | | - LABORATORY | | [...] [address] | [place] | [phone] | | [facility] | | [address] | | | - LABORATORY | | [...] [address] | [place] | [phone] | | [facility] | | [address] | | | - LABORATORY | | [...] 164 (H)Comment: New | <100 pg/mL | [facility] | | | | method in use [...] + | [facility] | [address] | [place] | [phone] | | [facility] | | [address] | | | - LABORATORY | | [...] + | [facility] | [address] | [place] | [phone] | | [facility] | | [address] | | | - LABORATORY | | [...] mL/min/1.73m2 | [facility] | | | MALIAN | RATE,ESTIMATED | | MEDICAL | | | | mL/min/1.66l6Svlf than | | CENTER - | | [...] ST. | [address] | [place] | [phone] | | [facility] | | [address] | | | - LABORATORY | | [...] + | [facility] | [address] | [place] | [phone] | | [facility] | | [address] | | | - LABORATORY | | [...] difficile, | (A)Comment: Toxigenic C. | | [facility] | | | Interp | difficile is [...] [address] | [place] | [phone] | | [facility] | | [address] | | | - LABORATORY | | [...] [address] | [place] | [phone] | | [facility] | | [address] | | | - LABORATORY | | [...] [address] | [place] | [phone] | | [facility] | | [address] | | | - LABORATORY | | [...] [address] | [place] | [phone] | | [facility] | | [address] | | | - LABORATORY | | [...] + | [facility] | [address] | [place] | [phone] | | [facility] | | [address] | | | - LABORATORY | | [...] [address] | [place] | [phone] | | [facility] | | [address] | | | - LABORATORY | | [...] | | Lavender | | | [facility] | | | Top Tube | [...] [address] | [place] | [phone] | | [facility] | | [address] | | | - LABORATORY | | [...] (H) | 9 - 23 mg/dL | [facility] | | | | | | [facility] | | | | | | MEDICAL | | | | | | CENTER - | | | | | | LABORATORY | | + + + + + + | Creatinine | 4.11 (H) | 0.70 - 1.30 | [facility] | | | | | mg/dL | [facility] | | | | | | MEDICAL | | | | | | CENTER - | | | | | | LABORATORY | | + + + + + + | eGFR if not | 17 (L)Comment: | >=60 | [facility] | | | | GLOMERULAR FILTRATION | mL/min/1.73m2 | [facility] | | | MALIAN | RATE,ESTIMATED | | MEDICAL | | | | mL/min/1.80u3Ujiy than | | CENTER - | | [...] + | [facility] | [address] | [place] | [phone] | | [facility] | | [address] | | | - LABORATORY | | [...] [address] | [place] | [phone] | | [facility] | | [address] | | | - LABORATORY | | [...] [address] | [place] | [phone] | | [facility] | | [address] | | | - LABORATORY | | | | + + + + + Red Blood Cells (PRBC) - Crossmatch (02/16/2020 3:29 AM PDT) + + + + + + | Component | Value | Ref Range | Performed | Pathologist | | | | | At | Signature | + + + + + + | Product | [id number] | | [facility] | | | Code | | | [facility] | | | | | | MEDICAL | | | | | | CENTER - | | | | | | BLOOD BANK | | + + + + + + | UNIT # | [id number] | | [facility] | | | | [...] + + + + | Blood | [id number] | | [facility] | | | Product [...] | | [facility] | | [address] | | | - BLOOD BANK | [...] 126 (H)Comment: New | <100 pg/mL | [facility] | | | | method [...] + | [facility] | [address] | [place] | [phone] | | [facility] | | [address] | | | - LABORATORY | | [...] [address] | [place] | [phone] | | [facility] | | [address] | | | - LABORATORY | | [...] in | 19 - 88 pg/mL | [facility] | | | | use as of November 22 | | [facility] | | | | 2018. Check reference [...] [address] | [place] | [phone] | | [facility] | | [address] | | | - LABORATORY | | [...] [address] | [place] | [phone] | | [facility] | | [address] | | | - LABORATORY | | [...] | | [facility] | | [address] | | | - BLOOD BANK | [...] [address] | [place] | [phone] | | [facility] | | [address] | | | - LABORATORY | | [...] [address] | [place] | [phone] | | [facility] | | [address] | | | - LABORATORY | | [...] + | [facility] | [address] | [place] | [phone] | | [facility] | | [address] | | | - LABORATORY | | [...] | mL/min/1.73m2 | [facility] | | | MALIAN | RATE,ESTIMATED | | MEDICAL | | | | mL/min/1.33p2Itjk than | | CENTER - | | [...] [address] | [place] | [phone] | | [facility] | | [address] | | | - LABORATORY | | [...] + | [facility] | [address] | [place] | [phone] | | [facility] | | [address] | | | - LABORATORY | | [...] ST. | [address] | [place], [place] | [phone] | | [facility] | | [address] | | | - LABORATORY | | [...] + | [facility] | [address] | [place] | [phone] | | [facility] | | [address] | | | - LABORATORY | | [...] | | | | | | | 2336-5019 Use NIGHT DOSE for | | | | | | | doses scheduled: HS, | | | | | | | Nighttime 4640-9571 If the BG is | | | [...] | | | | | NPO, Daytime 1878-9012 Use NIGHT | | | | | | | DOSE for doses scheduled: | | | | | | | HS, Nighttime 6308-5731 If the | | | | | [...] | +---+---+ + +-------+ +---+---+---+ | lanolin (EMM-C-[id number]) cream | Given | 02/21/20 | | [...]
--- OUTSIDE RECORDS SUMMARY | ~2020-03-21 | XMS | Encounter Summary ---
Demographics + + + | Address | [address] | | | [place] [address] | + + + | Home Phone [...] Samantha Ramos | ECON | [address] # | | | | | [place] | | | | | [address] | | + + + + + Care Team Providers + +------+ + | Care Rescue Worker Name | Role | Phone | [...] 2015 | | Center at [facility] [address] | | - General | | | | [address] | | | | | | Mailcode: [place] | | | | | | [facility] and | | | | | | [facility] [address] | | | | | | [place], [place] | | | | | | [address] | | | | | | [phone] | | | +--------+ + + + [...]
--- OUTSIDE RECORDS SUMMARY | ~2020-03-21 | XMS | Encounter Summary ---
Demographics + + + | Address | [address] | | | [place] [address] | + + + | Home Phone [...] Samantha Ramos | ECON | [address] # | | | | | [place] | | | | | [address] | | + + + + + Care Team Providers + +------+ + | Care Transmission Operator Name | Role | Phone | + +------+ + PCP | Unavailable | + +------+ + Encounter Details +--------+ + + + + | Date | Type | Department | Care Team | Description | +--------+ + + + + | 08/27/ | Office | [facility] | Clinic, Pediatric | Progress Note | | 2005 | Visit-Trans | MEDICAL RECORD TRANSCRIBER | Endocrinology | | | | cribed [...] as of this encounter Progress Notes Interface, Web Weaver In - 10/18/2005 10:01 PM PST [id number] MARQUEZ RAYMOND [facility] Date: 08/27/2005 [...] the school week, his father lives in [place], and apparently the school is better and [...] was 56. Diet: Brooks is on a pffhunsfzfjz-th-aoszxsx ratio. He has had dietary education about [...] sites. Assessment: Brooks is a 14-year and 69-rlrzh-yqp boy with type 1 diabetes, who has poor control although it is somewhat improved from previously. He is relatively noncompliant with his diabetes. I have made the following recommendations: 1. I have asked the family to review carbohydrate counting with our latent print examiner today. 2. I have recommended to Brooks [...] in 4 months' time. Ashanti Roque M.D. Registry Nurse Pediatric Endocrinology / [id number] / [id number] / [id number] / [id number] cc: Neri Mojica [address] [facility], [place] [address]. Electronically signed by Ashanti Roque 09-10-2005 04:52:54 PM documented i n this encounter Plan of Treatment Not on filedocumented as of this encounter Visit Diagnoses Not on filedocumented in this encounter"
--- OUTSIDE RECORDS SUMMARY | ~2020-03-21 | XMS | Encounter Summary ---
Demographics + + + | Address | [address] [address] | | | [place] [address] | + + + | Home Phone [...] [id number] | | | | | [address] | | + + + + + Care Team Providers + +------+ + | Care Brake Tester Name | Role | Phone | [...] | Services | Diabetic | Willard | Graves | | | Required | | ulcer of | MD Bernadette | [address] | | | | | left foot | [address] | [address] [place] | | | | | associated | [place] | [place], [place] | | | | | with type 1 | [place] | [address] | | | | | diabetes | [address] | Phone: | | | | | mellitus, | Phone: | [phone] | | | | | unspecified | [phone] | Fax: | | | | | part of | Fax: | [phone] | | | | | foot, | [phone] | | | | | | unspecified | | | | | | | ulcer stage | | | | | | | ([facility]) | | | | | [...] + + | 01/05/ | Hospital | [facility] | Erika Allison MD | Generalized weakness | | 2019 - | Encounter | [facility] | [address] | (Primary Dx); | | | | [address] [place] | [place] | Diabetic | | 01/09/ | | [place] [address] | [id number] | ketoacidosis without | | 2019 | | [phone] | | coma associated | | | | | Willard Aldrich | with type 1 diabetes | | | | | MD Bernadette [address] | mellitus (HCC); | | | | | [address] [place] | Acute renal failure | | | | | [place] [address] | superimposed on | | | | | [phone] | stage 3 chronic | | | | | | kidney disease, | | | | | | unspecified acute | | | | | | renal failure type | | | | | | ([facility]); Diabetic | | | | | | gastroparesis ([facility]); | | | | | | 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 | | | | | | with type 1 | | | | | | diabetes mellitus, | | | | | | unspecified part of | | | | | | foot, unspecified | | | | | | ulcer stage ([facility]) | +--------+ + + + [...] might be differen t from the original. [facility] [place] HOSPITALIST DISCHARGE SUMMARY Pt. Name/Age/: Brooks Marquez [...] III, p/w Diarrhe a and AMS from [facility], found to have DKA and Acute on [...] Medicine Why: hospital follow up Contact information: [address] [place] [address] Discharge to home with family Home health ordered on discharge for PT, wound care, and medication management Condition: Patient being discharged with condition improved Diet: consistent carb diet Greater than 30 minutes were spent on discharge and coordination of post-hospital care. Electronically signed by: Willard Aldrich MD, 01/10/2020 10:55 AM [facility] Reference. This is NOT part of [...] this chart may have been created with Cernium voice recognition software. Occasi onal wrong-word or [...] sick with another illness Date Last Reviewed: 03/26/201619991906-4347 [employer]. [address] [place] [address], [place] [address]. All righ ts reserved. This information is [...] flavors available): 8 ounces per day ? [place] Fresh Yogurt (many flavors available): 6 ounces per day AttachmentsThe following attachments cannot be sent through Care Everywhere.Adult, Pneumoni a (Malian)documented in this encounter Medications at Time of [...] might be differen t from the original. [place], [place] HOSPITALIST PROGRESS NOTE Patient: Brooks Marquez : 1990: Age: 29 y.o. MedRec: [id number] PCP: Emmanuel Saavedra Admission date: 01/06/2020 Hospital [...] III, p/w Diarrhe a and AMS from [facility], found to have DKA and Acute on [...] abx Willard Aldrich MD 01/09/2020 10:22 AM [facility] Subjective CC Continued nausea without [...] 84 TIBC 153* PCTSAT 55.0 FERRITIN 480* [id number] 1,885* FOLATE 2.0* Inflammatory markers Recent Labs [...] ABG No results for input(s): PHART, PO2ART, BSI7FTJ, SWL8TFT, BEART, E0VZICEN in the last 168 h ours. Recent [...] Date/Time [facility] STAT instructions for COVID-19 tracking [[id number]] Collected: 01/07/20 145 Order Status: Canceled Lab Status: No result Updated: 01/07/20 145 Specimen: Tissue from Nasopharynx Coronavirus (COVID-19) NAAT [[id number]] (Normal) Collected: 01/07/20 1447 Order Status: Completed Lab Status: Final result Updated: 01/07/20 190 Specimen: Tissue from Nasopharynx SARS coronavirus 2 RNA Not Detected Comment: See Scanned Report [facility] STAT instructions for COVID-19 tracking [[id number]] Collected: 01/07/20 1447 Order Status: Completed Lab Status: Final result Updated: 01/07/20 190 Specimen: Tissue from Nasopharynx [facility] COVID STAT instruction done Stool Pathogens, NAAT [[id number]] (Normal) Collected: 01/06/20 042 Order Status: Completed Lab Status: Final result Updated: 01/06/20 0816 Specimen: Stool Campylobacter, NAAT Not Detected Salmonella, NAAT Not Detected Shigella NAAT Not Detected Vibrio, NAAT Not Detected Yersinia enterocolitica, NAAT Not Detected Shigatoxin 1 Not Detected Shigatoxin 2 Not Detected Clostridioides difficle NAAT reflex to Tox Ag [[id number]] Collected: 01/06/20 0429 Order Status: Completed Lab Status: Final result Updated: 01/06/20 0705 Specimen: Stool Narrative: The following orders were created for panel order Clostridioides difficle NAAT reflex to T ox Ag. Procedure Abnormality Status --------- ------ Clostridioides difficile...[[id number]] Final result Please view results for these tests on the individual orders. Clostridioides difficile NAAT Reflex [[id number]] Collected: 01/06/20428 Order Status: Completed Lab Status: Final result Updated: 01/06/20 07 Specimen: Stool C. difficile, Interp Negative Comment: No Toxigenic C. difficile detected. Consider other causes of Diarrhea. Repeat te sting should not be performed within 7 days. C. difficile, NAAT Negative Fecal leukocytes [[id number]] (Normal) Collected: 01/06/20427 Order Status: Completed Lab Status: Final result Updated: 01/06/20 0504 Specimen: Stool Lactoferrin, Qual Negative Culture, Urine [[id number]] (Normal) Collected: 01/06/20427 Order Status: Completed Lab Status: Final result Updated: 01/08/20 1209 Specimen: Urine, Unspecified Source Culture No Growth Culture, Blood [[id number]] Collected: 01/06/20 0339 Order Status: Completed Lab Status: Preliminary result Updated: 01/09/20 044 Specimen: Peripheral Blood Culture No growth: Monitored continually by instrument for 5 days Culture, Blood [[id number]] Collected: 01/06/20 0329 Order Status: Completed Lab Status: Preliminary result Updated: 01/09/20 044 Specimen: Peripheral Blood Culture No growth: Monitored continually by instrument for 5 days Culture, MRSA [[id number]] (Normal) Collected: 01/06/20 0255 Order Status: Completed Lab Status: Final result Updated: 01/07/20 0742 Specimen: Body Fluid from Nares Culture Negative for MRSA by chromogenic agar method. Culture, MRSA [[id number]] Order Status: Canceled Lab Status: No result Specimen: Tissue from Nares Culture, MRSA [[id number]] Order Status: Canceled Lab Status: No result [...] this chart may have been created with Cernium voice recognition software. Occasi onal wrong-word or [...] LIST and MEDICATION BOTTLES X Doctor's office: [facility] X Pharmacy list names: Graciela (Clint) X Outside Information Vaccines up to date? 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 Removed therapy: Medication: Prior to Admission Sig: Reason for Removal: Dicyclomine 20 mg tablet No sig Therapy complete-patient's mom states patient has not had t his medication in awhile-no fill history in past year Recreational Substances, Tobacco & Alcohol use/frequency: X Tobacco: 2 cigarettes daily Best possible BATCH PLANT SUPERVISOR medication list after pharmacy review: PT REPORTED [...] performed and electronically signed by Kay Cleary, Cycle Consultant 01/08/2020 1:40 PM Reviewed by Mariama Saavedra, PharmD 01/08/2020 3:02 PM erry, Willard luna MD - 01/08/2020 7:52 AM PDTFormatting of this note might be different from the origi nal. [place] HOSPITALIST PROGRESS NOTE Patient: Brooks Marquez : 1990: Age: 29 y.o. MedRec: [id number] PCP: Emmanuel Saavedra Admission date: 01/06/2020 Hospital [...] III, p/w Diarrhe a and AMS from [facility], found to have DKA and Acute on [...] inpatient Willard Aldrich MD 01/08/2020 7:52 AM [facility] Subjective CC Some nausea, mid [...] 84 TIBC 153* PCTSAT 55.0 FERRITIN 480* [id number] 1,885* FOLATE 2.0* Inflammatory markers Recent Labs [...] ABG No results for input(s): PHART, PO2ART, WWO4MHC, YWV4TFY, BEART, R9JMFMVR in the last 168 h ours. Recent [...] Date/Time [facility] STAT instructions for COVID-19 tracking [[id number]] Collected: 01/07/20 145 Order Status: Canceled Lab Status: No result Updated: 01/07/201451 Specimen: Tissue from Nasopharynx Coronavirus (COVID-19) NAAT [[id number]] (Normal) Collected: 01/07/201446 Order Status: Completed Lab Status: Final result Updated: 01/07/201902 Specimen: Tissue from Nasopharynx SARS coronavirus 2 RNA Not Detected Comment: See Scanned Report [facility] STAT instructions for COVID-19 tracking [[id number]] Collected: 01/07/201446 Order Status: Completed Lab Status: Final result Updated: 01/07/201902 Specimen: Tissue from Nasopharynx [facility] COVID STAT instruction done Stool Pathogens, NAAT [[id number]] (Normal) Collected: 01/06/20428 Order Status: Completed Lab Status: Final result Updated: 01/06/20 0816 Specimen: Stool Campylobacter, NAAT Not Detected Salmonella, NAAT Not Detected Shigella NAAT Not Detected Vibrio, NAAT Not Detected Yersinia enterocolitica, NAAT Not Detected Shigatoxin 1 Not Detected Shigatoxin 2 Not Detected Clostridioides difficle NAAT reflex to Tox Ag [[id number]] Collected: 01/06/20428 Order Status: Completed Lab Status: Final result Updated: 01/06/20 0705 Specimen: Stool Narrative: The following orders were created for panel order Clostridioides difficle NAAT reflex to T ox Ag. Procedure Abnormality Status --------- ------ Clostridioides difficile...[[id number]] Final result Please view results for these tests on the individual orders. Clostridioides difficile NAAT Reflex [[id number]] Collected: 01/06/20428 Order Status: Completed Lab Status: Final result Updated: 01/06/20 0705 Specimen: Stool C. difficile, Interp Negative Comment: No Toxigenic C. difficile detected. Consider other causes of Diarrhea. Repeat te sting should not be performed within 7 days. C. difficile, NAAT Negative Fecal leukocytes [[id number]] (Normal) Collected: 01/06/20427 Order Status: Completed Lab Status: Final result Updated: 01/06/20 0504 Specimen: Stool Lactoferrin, Qual Negative Culture, Urine [[id number]] (Normal) Collected: 01/06/20427 Order Status: Completed Lab Status: Preliminary result Updated: 01/07/20 0832 Specimen: Urine, Unspecified Source Culture No growth to date Culture, Blood [[id number]] Collected: 01/06/20 0339 Order Status: Completed Lab Status: Preliminary result Updated: 01/06/20 164 Specimen: Peripheral Blood Culture No growth: Monitored continually by instrument for 5 days Culture, Blood [[id number]] Collected: 01/06/20 0329 Order Status: Completed Lab Status: Preliminary result Updated: 01/06/20 1641 Specimen: Peripheral Blood Culture No growth: Monitored continually by instrument for 5 days Culture, MRSA [[id number]] (Normal) Collected: 01/06/20 0255 Order Status: Completed Lab Status: Final result Updated: 01/07/20 0742 Specimen: Body Fluid from Nares Culture Negative for MRSA by chromogenic agar method. Culture, MRSA [[id number]] Order Status: Canceled Lab Status: No result Specimen: Tissue from Nares Culture, MRSA [[id number]] Order Status: Canceled Lab Status: No result [...] A p reliminary report was sent by [facility] with no significant discrepancy on 01/06/2020 [...] this chart may have been created with Cernium voice recognition software. Occasi onal wrong-word or [...] after antibiotics if/when end time established Maddie Altamiarno PharmD 01/08/2020 7:51 AM Yo Neumann MD - 01/07/2020 8:12 AM PDT [facility] Adult Hospitalist Progress Note Hospital Day: 1 Patient Summary: Briefly, 29-year-old male with an extensive past medical history most significant for type 1 diabetes mellitus complicated with gastroparesis right BKA and chronic left foot ulc er and CKD stage III who presented initially to [facility] with a chief complaint of di arrhea and confusion transferred to [facility] ICU for DKA and acute on [...] call out kajal ropriately. Pt to transfer [id number] med/surg. Report called to receiving RN.Electronically si [...] staff Chief Complaint/Reason for Visit: Transferred from [facility] for DKA and ARF History of Present Illness: 29yoM w/ type I DM c/b gastroparesis, CKD III, R BKA, and chronic L foot ulcer, who present ed to [facility] for diarrhea and AMS. Patient was [...] any additional history for me. Labs from [facility]: WBC: 19.1>9.3<253 BMP: 130/6.0/96/2(AG38)/67/4.14 Glucose 711 [...] STENT PLACEMENT; Surgeon: Tc Mora MD; Location: [facility] MAIN OR Allergies: Allergies Allergen Reactions Codeine [...] file Gets together: Not on file Attends rastafari service: Not on file Active member of [...] by: Erika Allison MD, 01/06/2020 1:43 AM [facility] Lab data: No results found for [...] Home Health. Face to face over to [facility] along with the chart notes. [...] and mobility limitations s/p transfer admission from [facility] d/t DKA and stage 3 C KD, ARF, diarrhea and AMS. PMH of BKA RLE, current left foot ulcer. Pt on phone on arrival, reported he is making arrangements for brother to come from [place] to pick pt up and take him home. Emphasis of session included communication with MD before and after session, tele phone conversation with patient's mother and communication with RN. Pt participated in bed mobility, sitting EOB and transfer training bed to w/c via sliding board. Patient's mother s tated she has no concerns regarding taking patient home. 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 Brooks will benefit from continued therapeutic intervention to address ongoing impairments and increase safety and independence with activities necessary for safe discharge. Refer be low for specific details regarding functional levels. Physical Therapy Discharge Recommendations are: Recommended discharge disposition: home with assist, [place] [facility] [place](18/04 caregiv er A) Post discharge physical therapy recommendation: home health, will benefit from structured setting, ongoing low intensity therapy, family involved/supportive Equipment Recommendations: (pt has w/c, sliding board and [facility] provided gait belt) Planned Interventions: bed mobility training, patient/family education, strengthening, tra nsfer training Recommended Frequency: 5 times/wk(5-6x/wk) Patient Status/Goals: Reflects last filed data and may be from multiple contributors. Gait Level of [place]: unable to perform, not appropriate to assess Transfers Completed bed to w/c transfer, needing sliding board and required max A to complete task. P t with limited use of UEs, and not able to push off and assist transfer with left foot/heel "my leg isn't working, I'm too weak", 1-2P required for safety assurance/assist Bed-Chair, Level of [place]: maximal assist (25% patient effort), 1 person + 1 person to manage equipment, set up required, verbal cues required, tactile cues required Chair-Bed, Level of [place]: not tested Usf-Pliei-Lpp, Assistive Device: wheelchair, sliding board Impairments: decreased flexibility, strength decreased, impaired balance, coordination impa ired, postural control impaired(very weak, deconditioned with low activity tolerance) Bed Mobility HOB elevated, assist at trunk required. Movements slow and laborious Assistive Device: HOB elevated Supine to Sit, Level of [place]: minimal assist (75% patient effort), verbal cues requ ired Sit to Supine, Level of [place]: not tested Safety Issues: decreased use of [...] STG Review Date 01/16/20 at 01/09/2020 1225 Djryiv-Hku-Igxjnu Goal Most Recent Value STG Status progressing at 01/10/2020 1121 STG [place] Level stand by assist at 01/09/2020 1225 STG Assistive Device none at 01/09/2020 1225 Iun-Paldu-Wra Goal Most Recent Value STG Status progressing at 01/10/2020 1121 STG [place] Level minimum assist (75% patient effort) at [...] are: Recommended discharge disposition: home with assist, [place] [facility](Pending prog ress/ Level of assist for transfers) Post discharge occupational therapy recommendation: ongoing low intensity therapy, home he alth, family involved/supportive Equipment Recommendations: 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 LB Dressing, Level of [place]: moderate assist (50% patient effort) Assistive Device: [...] HOB elevated Supine to Sit, Level of [place]: contact guard assist, verbal cues required, set up re quired Sit to Supine, Level of [place]: stand by assist, verbal cues required Safety [...] STG Status new at 01/09/2020 1432 STG [place] Level modified independent, set up required at 01/09/2020 1432 STG Position sitting, edge of bed at 01/09/2020 1432 STG Adaptive Equipment none at 01/09/2020 1432 LB Dressing Goal Most Recent Value STG Status new at 01/09/2020 1432 STG [place] Level moderate assist (50% patient effort) at 01/09/2020 1432 STG Adaptive Equipment sock-aid, forest biometrics professor at 01/09/2020 1432 Toilet Transfer Goal Most Recent Value STG Status new at 01/09/2020 1432 STG [place] Level minimum assist (75% patient effort) at [...] mobility limitations s/p t ransfer admission from [facility] d/t DKA and stage 3 CKD, ARF, [...] mobilize at level safe for home discharge, [facility] indicating significant impairment with basic functional mobility, [...] are: Recommended discharge disposition: home with assist, [place] [facility] [place](TBD -dependi ng on progress and ability of cg to assist) Post discharge physical therapy recommendation: ongoing low intensity therapy, home health Equipment Recommendations: none(has DME) Planned Interventions: bed mobility training, patient/family education, strengthening, tra nsfer training Recommended Frequency: 5 times/wk(5-6x/wk) Patient Status/Goals: Reflects last filed data and may be from multiple contributors. Gait Level of [place]: unable to perform, not appropriate to assess [...] HOB elevated Supine to Sit, Level of [place]: minimal assist (75% patient effort) Sit to Supine, Level of [place]: stand by assist, verbal cues required Safety [...] grossly 3-/5 R LE Strength: grossly 3-/5 [facility] BASIC MOBILITY Turning from your back to [...] Mobility Six Click AM-PAC: 11 Completed the [facility] Activity Measure for Post Acute Care (AM-PAC) "6 Clicks" Ba sic Mobility Inpatient Short Form. This version of the AM-PAC is an assessment tool used to measure a person's level of disability in performing basic mobility tasks. Brooks's score indicates a performance of 72.57% impairment in the functioning of basic mobility. Raw Score - Functional Limitation % (for [facility]) - "Severity Modifier" CN 6 - 100.00 [...] STG Review Date 01/16/20 at 01/09/2020 1225 Smplyp-Pjf-Pbfejz Goal Most Recent Value STG Status new at 01/09/2020 1225 STG [place] Level stand by assist at 01/09/2020 1225 STG Assistive Device none at 01/09/2020 1225 Oez-Aanpo-Yod Goal Most Recent Value STG Status new at 01/09/2020 1225 STG [place] Level minimum assist (75% patient effort) at [...] heel covered with pink foam dressing, CDI, [place] foam dressing applied to coccyx to prevent [...] vital signs stable on room air. PRN [place] helpful for leg and back pain. Blood [...] signs stab le on room air. PRN [place] helpful for leg and back pain. Blood [...] 6:48 PM PDTPt has been cooperative with [facility]. Hydrocodone has been given for generalized [...] y.o. male who is admitted for DKA. Setter Induction Heating Equipment visit is in response to family request. [...] continue to follow PRN. lan of Carmina Sharp OT - 01/07/2020 3:18 PM PDTFormatting of [...] ic L foot ulcer, who presented to [facility] for diarrhea and AMS. Objective: Reportedly a long standing diabetic foot ulcer on the lateral side of the L. Foot near the [facility]. Wound is managed by bomb loader in [place]. Wound is approx 3.5 cm x 2.3 [...] y.o. male who is admitted for DKA. Setter Induction Heating Equipment visit was part of routine rounding. Spiritual Evaluation: The patient was resting in a bed in the ICU and was receptive to a spiritual care phone aliyah arreaga. He was groggy and a bit overwhelmed by the situation as he did not recall many of the de tails about his arrival. He desired the curtain framer to contact his mother to provide a [...] No spiritual care needs. Spiritual Interventions: The curtain framer attended, offered care, witnessed patient's story, and contacted patient's mot her. Spiritual Outcomes: The patient is coming to an awareness of his situation and appreciates spiritual care. Spiritual Goals/Follow-up: Follow up as needed. 10:2 7 AM PDTPlan of Care - Mal Beltran RN - 01/07/2020 9:11 AM PDTKeermelinda had no falls over night. C/O pain, obtained order for [place]. Anion gap closed, insulin gtt stopped this [...] stage I II who presented initially to [facility] with a chief complaint of diarrhea and confusi on transferred to [facility] ICU for DKA and acute on [...] - 01/06/2020 5:57 AM PDTPatient arrived from [place] via ground ambulance . He was given ativan prior to leaving [place] for altered mental status and is somnolent [...] 2019 | Visit | | [address] [facility] | | | | | | [address] [place], [place] | | | | | | [address] | | | | | | | [...] MEDICAL | | | | | | [facility] - | | | | | | LABORATORY | | + +-------+ + + + + + | Specimen | + + | Blood | + + + + + + + | Performing | Address | City/State/Zipcode | Phone Number | | Organization | | | | + + + + + | [facility] | [address] | [place] | [phone] | | [facility] | | [address] | | | - LABORATORY | | [...] [address] | [place] | [phone] | | [facility] | | [address] | | | - LABORATORY | | [...] + | [facility] | [address] | [place] | [phone] | | [facility] | | [address] | | | - LABORATORY | | [...] [address] | [place] | [phone] | | [facility] | | [address] | | | - LABORATORY | | [...] + | [facility] | [address] | [place] | [phone] | | [facility] | | [address] | | | - LABORATORY | | [...] mL/min/1.73m2 | [facility] | | | [facility] | RATE,ESTIMATED | | MEDICAL | | | | mL/min/1.51f6Bcor than | | CENTER - | | [...] [address] | [place] | [phone] | | [facility] | | [address] | | | - LABORATORY | | [...] [address] | [place] | [phone] | | [facility] | | [address] | | | - LABORATORY | | [...] + | [facility] | [address] | [place] | [phone] | | [facility] | | [address] | | | - LABORATORY | | [...] [address] | [place] | [phone] | | [facility] | | [address] | | | - LABORATORY | | [...] + | [facility] | [address] | [place] | [phone] | | [facility] | | [address] | | | - LABORATORY | | [...] [address] | [place] [place] | [phone] | | [facility] | | [address] | | | - LABORATORY | | [...] [address] | [place] | [phone] | | [facility] | | [address] | | | - LABORATORY | | [...] (H) | 9 - 23 mg/dL | [facility] | | [facility] | | | [facility] | | | | | MEDICAL | | | | | | CENTER - | | | | | | LABORATORY | | + + + + + + | Creatinine | 2.91 (H) | 0.70 - 1.30 | [facility] | | | | | mg/dL | [facility] | | | | | | MEDICAL | | | | | | CENTER - | | | | | | LABORATORY | | + + + + + + | eGFR if not | 26 (L)Comment: | >=60 | [facility] | | | | GLOMERULAR FILTRATION | mL/min/1.73m2 | [facility] | | | BELARUSIAN | RATE,ESTIMATED | | MEDICAL | | | | mL/min/1.97f5Hmgx than | | CENTER - | | [...] + | [facility] | [address] | [place] | [phone] | | [facility] | | [address] | | | - LABORATORY | | [...] | | POC | | | ST[facility]anda [facility] | | | | | | [...] + | [facility] | [address] | [place] | [phone] | | [facility] | | [address] | | | - LABORATORY | | [...] [address] | [place] | [phone] | | [facility] | | [address] | | | - LABORATORY | | [...] + | [facility] | [address] | [place] | [phone] | | [facility] | | [address] | | | - LABORATORY | | [...] [address] | [place] | [phone] | | [facility] | | [address] | | | - LABORATORY | | [...] | | GLOMERULAR FILTRATION | mL/min/1.73m2 | [facility] | | | BELARUSIAN | RATE,ESTIMATED | | MEDICAL | | | | mL/min/1.01b5Sihn than | | CENTER - | | [...] | | | | | mg/dL | [facility] | | | | | | [...] [address] | [place] | [phone] | | [facility] | | [address] | | | [...] + | [facility] | [address] | [place] | [phone] | | [facility] | | [address] | | | - LABORATORY | | [...] | | | | | | [facility] | | | | | [...] [address] | [place] | [phone] | | [facility] | | [address] | | | - LABORATORY | | [...] [address] | [place] | [phone] | | [facility] | | [address] | | | - LABORATORY | | [...] [address] | [place] | [phone] | | [facility] | | [address] | | | - LABORATORY | | [...] [address] | [place] | [phone] | | [facility] | | [address] | | | - LABORATORY | | [...] + | [facility] | [address] | [place] | [phone] | | [facility] | | [address] | | | - LABORATORY | | [...] [address] | [place] | [phone] | | [facility] | | [address] | | | - LABORATORY | | [...] + | [facility] | [address] | [place] | [phone] | | [facility] | | [address] | | | - LABORATORY | | [...] [address] | [place] | [phone] | | [facility] | | [address] | | | - LABORATORY | | [...] + + | Performing | Address | City/State/[facility] | Phone Number | | Organization | | | | + + + + + | [facility] | [address] | [place] | [phone] | | [facility] | | [address] | | | - LABORATORY | | [...] + | [facility] | [address] | [place], [place] | [phone] | | [facility] | | [address] | | | - LABORATORY | | [...] [address] | [place] | [phone] | | [facility] | | [address] | | | - LABORATORY | | [...] [address] | [place] | [phone] | | [facility] | | [address] | | | - LABORATORY | | [...] 3.76 (H) | 0.70 - 1.30 | [facility] | | | | | mg/dL | [facility] | | | | | | MEDICAL | | | | | | CENTER - | | | | | | LABORATORY | | + + + + + + | eGFR if not | 19 (L)Comment: | >=60 | [facility] | | | | GLOMERULAR FILTRATION | mL/min/1.73m2 | [facility] | | | BELARUSIAN | RATE,ESTIMATED | | MEDICAL | | | | mL/min/1.02s2Cnxn than | | CENTER - | | [...] [address] | [place] | [phone] | | [facility] | | [address] | | | - LABORATORY | | [...] [address] | [place] | [phone] | | [facility] | | [address] | | | - LABORATORY | | [...] [address] | [place] | [phone] | | [facility] | | [address] | | | - LABORATORY | | [...] [address] | [place] | [phone] | | [facility] | | [address] | | | - LABORATORY | | [...] + | [facility] | [address] | [place] | [phone] | | [facility] | | [address] | | | - LABORATORY | | [...] ST. | [address] | [place], [place] | [phone] | | [facility] | | [address] | | | - LABORATORY | | [...] [address] | [place] | [phone] | | [facility] | | [address] | | | - LABORATORY | | [...] + | [facility] | [address] | [place] | [phone] | | [facility] | | [address] | | | - LABORATORY | | [...] [address] | [place] | [phone] | | [facility] | | [address] | | | - LABORATORY | | [...] | | GLOMERULAR FILTRATION | mL/min/1.73m2 | [facility] | | | BELARUSIAN | RATE,ESTIMATED | | MEDICAL | | | | mL/min/1.80p1Adqf than | | CENTER - | | [...] [address] | [place] | [phone] | | [facility] | | [address] | | | - LABORATORY | | [...] + | [facility] | [address] | [place] | [phone] | | [facility] | | [address] | | | - LABORATORY | | [...] + | [facility] | [address] | [place], [place] | [phone] | | [facility] | | [address] | | | - LABORATORY | | [...] [address] | [place] | [phone] | | [facility] | | [address] | | | - LABORATORY | | [...] [address] | [place] | [phone] | | [facility] | | [address] | | | - LABORATORY | | [...] [address] | [place] | [phone] | | [facility] | | [address] | | | - LABORATORY | | [...] + | [facility] | [address] | [place], [place] | [phone] | | [facility] | | [address] | | | - LABORATORY | | [...] ST. | [address] | [place], [place] | [phone] | | [facility] | | [address] | | | - LABORATORY | | [...] not | 18 (L)Comment: | >=60 | [facility] | | | | GLOMERULAR FILTRATION | mL/min/1.73m2 | [facility] | | | BELARUSIAN | RATE,ESTIMATED | | MEDICAL | | | | mL/min/1.44x8Cfvv than | | CENTER - | | [...] [address] | [place] | [phone] | | [facility] | | [address] | | | - LABORATORY | | [...] [address] | [place] | [phone] | | [facility] | | [address] | | | - LABORATORY | | [...] + | [facility] | [address] | [place] | [phone] | | [facility] | | [address] | | | - LABORATORY | | [...] [address] | [place] | [phone] | | [facility] | | [address] | | | - LABORATORY | | [...] + | [facility] | [address] | [place] | [phone] | | [facility] | | [address] | | | - LABORATORY | | [...] | | | | | | [facility] | | | | | [...] ST. | [address] | [place], [place] | [phone] | | [facility] | | [address] | | | - LABORATORY | | [...] [address] | [place] | [phone] | | [facility] | | [address] | | | - LABORATORY | | [...] 4.13 (H) | 0.70 - 1.30 | [facility] | | | | | mg/dL | [facility] | | | | | | MEDICAL | | | | | | CENTER - | | | | | | LABORATORY | | + + + + + + | eGFR if not | 17 (L)Comment: | >=60 | [facility] | | | | GLOMERULAR FILTRATION | mL/min/1.73m2 | [facility] | | | BELARUSIAN | RATE,ESTIMATED | | MEDICAL | | | | mL/min/1.20n4Qsep than | | CENTER - | | [...] [address] | [place] | [phone] | | [facility] | | [address] | | | - LABORATORY | | [...] + | [facility] | [address] | [place] | [phone] | | [facility] | | [address] | | | - LABORATORY | | [...] | | | report was sent by [employer] with no significant discrepancy on | | [...] preliminary report was | | sent by [employer] with no significant discrepancyon 01/06/2020 4:25 PM.Dictated [...] | |A preliminary report was sent by [facility] with no significant discrepancy | |on 01/06/2020 [...] [address] | [place] | [phone] | | [facility] | | [address] | | | - LABORATORY | | [...] [address] | [place] | [phone] | | [facility] | | [address] | | | - LABORATORY | | [...] + | [facility] | [address] | [place] | [phone] | | [facility] | | [address] | | | - LABORATORY | | [...] + | [facility] | [address] | [place] | [phone] | | [facility] | | [address] | | | - LABORATORY | | [...] | + + + + + | [facility] | [address] | [place] | [phone] | | [facility] | | [address] | | | - LABORATORY | | [...] (H) | 9 - 23 mg/dL | [facility] | | | | | | [facility] | | | | | | MEDICAL | | | | | | CENTER - | | | | | | LABORATORY | | + + + + + + | Creatinine | 4.08 (H) | 0.70 - 1.30 | [facility] | | | | | mg/dL | [facility] | | | | | | MEDICAL | | | | | | CENTER - | | | | | | LABORATORY | | + + + + + + | eGFR if not | 17 (L)Comment: | >=60 | [facility] | | | | GLOMERULAR FILTRATION | mL/min/1.73m2 | [facility] | | | BELARUSIAN | RATE,ESTIMATED | | MEDICAL | | | | mL/min/1.37p2Lgvs than | | CENTER - | | [...] + | [facility] | [address] | [place] | [phone] | | [facility] | | [address] | | | - LABORATORY | | [...] [address] | [place] | [phone] | | [facility] | | [address] | | | - LABORATORY | | [...] [address] | [place] | [phone] | | [facility] | | [address] | | | - LABORATORY | | [...] [address] | [place] | [phone] | | [facility] | | [address] | | | - LABORATORY | | [...] [address] | [place] | [phone] | | [facility] | | [address] | | | - LABORATORY | | [...] [address] | [place] | [phone] | | [facility] | | [address] | | | - LABORATORY | | [...] + | [facility] | [address] | [place] | [phone] | | [facility] | | [address] | | | - LABORATORY | | [...] | B-12 | DEFICIENT: | | [facility] | | | | <145 | | [...] [address] | [place] | [phone] | | [facility] | | [address] | | | - LABORATORY | | [...] + | [facility] | [address] | [place] | [phone] | | [facility] | | [address] | | | - LABORATORY | | [...] [facility] | | | | | | [facility] | | | | | | MEDICAL | | | | | | CENTER - | | | | | | LABORATORY | | + + + + + + | TRANSFERRIN | 109.0 (L) | 215.0 - 365.0 | [facility] | | | | | mg/dL | [facility] | | | | | [...] [address] | [place] | [phone] | | [facility] | | [address] | | | - LABORATORY | | [...] | | [facility] | | [address] | | | - BLOOD BANK | [...] + | [facility] | [address] | [place] | [phone] | | [facility] | | [address] | | | - LABORATORY | | [...] ST. | [address] | [place], [place] | [phone] | | [facility] | | [address] | | | - LABORATORY | | [...] | | | | | mg/dL | [facility] | | | | | | MEDICAL | | | | | | CENTER - | | | | | | LABORATORY | | + + + + + + | eGFR if not | 17 (L)Comment: | >=60 | [facility] | | | | GLOMERULAR FILTRATION | mL/min/1.73m2 | [facility] | | | BELARUSIAN | RATE,ESTIMATED | | MEDICAL | | | | mL/min/1.06c2Vkar than | | CENTER - | | [...] | | | | | mg/dL | [facility] | | | | | [...] [address] | [place] | [phone] | | [facility] | | [address] | | | - LABORATORY | | [...] + | [facility] | [address] | [place] | [phone] | | [facility] | | [address] | | | - LABORATORY | | [...] ST. | [address] | [place], [place] | [phone] | | [facility] | | [address] | | | - LABORATORY | | [...] + | [facility] | [address] | [place] | [phone] | | [facility] | | [address] | | | - LABORATORY | | [...] + | [facility] | [address] | [place] | [phone] | | [facility] | | [address] | | | - LABORATORY | | [...] difficile, | Toxigenic C. difficile | | [facility] | | | Interp | [...] [address] | [place] | [phone] | | [facility] | | [address] | | | - LABORATORY | | [...] [address] | [place] | [phone] | | [facility] | | [address] | | | - LABORATORY | | [...] + | [facility] | [address] | [place] | [phone] | | [facility] | | [address] | | | - LABORATORY | | [...] + | [facility] | [address] | [place] | [phone] | | [facility] | | [address] | | | - LABORATORY | | [...] + | [facility] | [address] | [place] | [phone] | | [facility] | | [address] | | | - LABORATORY | | [...] + + | Performed at: 01 - [place] [address], | REFERENCE LAB | | [place], [place] [id number] Quality Associate: Jerome Agudelo MD, Phone: | [facility] | | [phone] | | + + + + + + + + | Performing | Address | City/State/Zipcode | Phone Number | | Organization | | | | + + + + + | REFERENCE LAB | [address] | [place], [place] | [phone] | | [facility] | [place] | [address] | | + + + + + [...] [address] | [place] | [phone] | | [facility] | | [address] | | | - LABORATORY | | [...] - 1.030 | [facility] | | | [address], | | | [facility] | | [...] [address] | [place] | [phone] | | [facility] | | [address] | | | - LABORATORY | | [...] + | [facility] | [address] | [place] | [phone] | | [facility] | | [address] | | | - LABORATORY | | [...] ST. | [address] | [place] | [phone] | | [facility] | | [address] | | | - LABORATORY | | [...] | | | | CRISTINE HUDDLESTON MD ([id number]) | | | | | | on [...] [address] | [place] | [phone] | | [facility] | | [address] | | | - [...] + | [facility] | [address] | [place] | [phone] | | [facility] | | [address] | | | - LABORATORY | | [...] [address] | [place] | [phone] | | [facility] | | [address] | | | - LABORATORY | | [...] + | [facility] | [address] | [place] | [phone] | | [facility] | | [address] | | | - LABORATORY | | [...] [address] | [place] | [phone] | | [facility] | | [address] | | | - LABORATORY | | [...] [address] | [place] | [phone] | | [facility] | | [address] | | | - LABORATORY | | [...] | | | | | | [employer] | | | | | [...] + + | Performing | Address | City/State/[facility] | Phone Number | | Organization | | | | + + + + + | [facility] | [address] | [place] | [phone] | | [facility] | | [address] | | | - LABORATORY | | [...] mL/min/1.73m2 | [facility] | | | BELARUSIAN | RATE,ESTIMATED | | MEDICAL | | | | mL/min/1.45e6Ayps than | | CENTER - | | [...] [address] | [place] | [phone] | | [facility] | | [address] | | | - LABORATORY | | [...] [address] | [place] | [phone] | | [facility] | | [address] | | | - LABORATORY | | [...] [address] | [place] | [phone] | | [facility] | | [address] | | | - LABORATORY | | [...] [address] | [place] | [phone] | | [facility] | | [address] | | | - LABORATORY | | [...] + | [facility] | [address] | [place] | [phone] | | [facility] | | [address] | | | - LABORATORY | | [...] | | of foot, unspecified ulcer stage ([facility]) | + + documented in [...] | | | | | NPO, Daytime 5090-0906 Use NIGHT | | | | | | | DOSE for doses scheduled: | | | | | | | HS, Nighttime 5796-5582 If the | | | | | [...]
--- OUTSIDE RECORDS SUMMARY | ~2020-03-21 | XMS | Encounter Summary ---
Demographics + + + | Address | [address] | | | [place] [address] | + + + | Home Phone [...] Samantha Ramos | ECON | [address] # | | | | | [place] | | | | | [address] | | + + + + + Care Team Providers + +------+ + | Care Brick Maker Name | Role | Phone | [...] evaluation | | 2020 | cheduled | [facility] at | | | | | | [facility] | | | | | | [address] | | | | | | Mail Code: OC8PM | | | | | | [facility] | | | | | | and Healing, | | | | | | [address] | | | | | | [place], [place] | | | | | | [address] | | | | | | [phone] | | | +--------+ + + + [...] INSTRUCTIONS Eating/Drinking Instructions: Follow instructions provided by [facility] Endoscopy. You should have received these instruction s by mail or email. If you have not received them, contact Endoscopy at [phone]. General Medications Instructions Oral iron: If you [...] as Uber/Lyft), or public transportation. An Uber/Lyft/tractor trailer truck driver does not count as the [...] it is after office hours, call the [facility] typecasting machine operator at [phone] and ask them to page the on-c all GI provider. Your surgical team will decide when you are medically ready to go home. documented in this encounter Plan of Treatment Not on filedocumented as of this encounter Visit Diagnoses Not on filedocumented in this encounter"
--- OUTSIDE RECORDS SUMMARY | ~2020-03-21 | XMS | Encounter Summary ---
Demographics + + + | Address | [address] | | | [place] [address] | + + + | Home Phone [...] Samantha Ramos | ECON | [address] # | | | | | [place] | | | | | [address] | | + + + + + Care Team Providers + +------+ + | Care Retail Sales Professional Name | Role | Phone | [...] [place], 3rd floor | | ([facility]) | | | | [place], [place] | | | | | | [address] | | | | | | [phone] | | | +--------+------+ + + + [...] | | | LABORATORY | | | [facility] | | | SERVICES, | | | [...] | + + + + + | [facility] | [address] | [place] [address] | | | SERVICES, ZOEY | ZENA [...]
--- OUTSIDE RECORDS SUMMARY | ~2020-03-21 | XMS | Encounter Summary ---
Demographics + + + | Address | [address] | | | [place] [address] | + + + | Home Phone [...] Samantha Ramos | ECON | [address] # | | | | | [place] | | | | | [address] | | + + + + + Care Team Providers + +------+ + | Care Bottom Cementer Name | Role | Phone | [...] 10/09/ | Documentati | VERITO BUTLERU at [facility] | Lab, Gi Procedure | Medical Records | | 2020 | on | [facility] [address] | | Review | | | | [address] Mailcode: | | | | | | OC2L [facility] | | | | | | Health and Healing, | | | | | | [address] | | | | | | [place], [place] | | | | | | [address] | | | | | | [phone] | | | +--------+ + + + [...]
--- OUTSIDE RECORDS SUMMARY | ~2020-03-21 | XMS | Encounter Summary ---
Demographics + + + | Address | [address] [place] | | | [place] [address] | + + + | Home Phone [...] [place] | | | | | [address] | | + + + + + Care Team Providers + +------+ + | Care Customer Service Associate Name | Role | Phone | + +------+ + | Erich Yates | PCP | | + +------+ + Encounter Details +--------+ + + + + | Date | Type | Department | Care Team | Description | +--------+ + + + + | 03/16/ | Orders Only | [facility] | Winston Whitman MD | | | 2018 | | NEPHROLOGY [place] | [address] [place] | | | | | [address] [place] | [address] [place], [place] | | | | | [address] [place], [place] | [address] | | | | | [address] | | | | | | [phone] | | | +--------+ + + + [...] 2019 | Visit | | [address] [facility] | | | | | | [facility] | | | | | | [address] | | | | | | | [...] | | | LAB | | | [place] | | | | | + + [...]
--- OUTSIDE RECORDS SUMMARY | ~2020-03-21 | XMS | Encounter Summary ---
Demographics + + + | Address | [address] | | | [place] [address] | + + + | Home Phone | | + + + | Preferred Language | Unknown | + + + | Marital Status | Single | + + + | Taoist Affiliation | Unknown | + + + [...] [place] | | | | | [address] | | + + + + + Care Team Providers + +------+ + | Care Yield Improvement Engineer Name | Role | Phone | [...] | | | [address] | [place] [address] | | | | | [place] [address] | | | | | | [phone] | | | +--------+ + + + [...] 2020 | Visit | | [address] [facility] | | | | | | [address] [place] | | | | | | [address] | | | | | | | [...]
--- OUTSIDE RECORDS SUMMARY | ~2020-03-21 | XMS | Encounter Summary ---
Demographics + + + | Address | [address] | | | [place] [address] | + + + | Home Phone [...] Samantha Ramos | ECON | [address] # | | | | | [place] | | | | | [address] | | + + + + + Care Team Providers + +------+ + | Care Training And Development Specialist Name | Role | Phone [...] | | 2019 | | Center at [facility] [address] | [address] | Review | | | | [address] | [place], [place] | | | | | Mailcode: Center | [address] | | | | | for Health and | [phone] | | | | | [place] [address] | | | | | | [place], [place] | | | | | | [address] | | | | | | [phone] | | | +--------+ + + + [...]
--- OUTSIDE RECORDS SUMMARY | ~2020-03-21 | XMS | Encounter Summary ---
Demographics + + + | Address | [address] | | | [place] [address] | + + + | Home Phone [...] Samantha Ramos | ECON | [address] # | | | | | [place] | | | | | [address] | | + + + + + Care Team Providers + +------+ + | Care Wax Machine Operator Name | Role | Phone [...] | | Endocrinology at | MD [address] [facility] | | | | | Tika | [address] | | | | | [facility] | [place], [place] | | | | | [address] | [address] | | | | | [place] | [phone] | | | | | [place], [place] | | | | | | [address] | | | | | | [phone] | | | +--------+--------+ + + + [...]
--- OUTSIDE RECORDS SUMMARY | ~2020-03-21 | XMS | Encounter Summary ---
Demographics + + + | Address | [address] | | | [place] [address] | + + + | Home Phone | | + + + | Preferred Language | Unknown | + + + | Marital Status | Single | + + + | Lutheran Affiliation | NON | + + + [...] Samantha Ramos | ECON | [address] | | | | | [place] | | | | | [address] | | + + + + + Care Team Providers + +------+ + | Care Vp Compliance Name | Role | Phone | + [...] 10/09/ | Documentati | VERITO BUTLERU at [facility] | Lab, Gi Procedure | Medical Records | | 2020 | on | [facility] [address] | | Review | | | | [address] Mailcode: | | | | | | [facility] | | | | | | [facility] He[facility], | | | | | | [address] | | | | | | [place], [place] | | | | | | [address] | | | | | | [phone] | | | +--------+ + + + [...]
--- OUTSIDE RECORDS SUMMARY | ~2020-03-21 | XMS | Encounter Summary ---
Demographics + + + | Address | [address] | | | [place] [address] | + + + | Home Phone [...] Samantha Ramos | ECON | [address] | | | | | [place] | | | | | [address] | | + + + + + Care Team Providers + +------+ + | Care Java Tech Name | Role | Phone | + +------+ + | Erich aYtes PA-C | PCP | | + +------+ + Encounter Details +--------+ + + + + | Date | Type | Department | Care Team | Description | +--------+ + + + + | 11/28/ | Anesthesia | VERITO BUTLERU at [facility] | Beth Nash, | | | 2019 | Event | [facility] [address] | RN [address] [facility] | | | | | Elliott Nguyen Mailcode: | [address] | | | | | [facility] for | [place], [place] | | | | | Health and Healing, | [address] | | | | | Building 2 | | | | | | [place], [place] | | | | | | [address] | | | | | | [phone] | | | +--------+ + + + [...]
--- OUTSIDE RECORDS SUMMARY | ~2020-03-21 | XMS | Encounter Summary ---
Demographics + + + | Address | [address] | | | [place] [address] | + + + | Home Phone [...] [place] | | | | | [address] | | + + + + + Care Team Providers + +------+ + | Care Qa Internship Name | Role | Phone | + [...] + + | 06/09/ | Hospital | [facility] | Diony Hollis, | | | 2019 - | Encounter | [facility] | [address] | | | | | CARE FLOOR [address] | [place] [address] | | | 06/10/ | | [address] | [phone] | | | 2019 | | [place], [place] | | | | | | [address] | Solomon Jonas MD [address] | | | | | [phone] | [address] | | | | | | [place] [address] | | | | | | [phone] | | | | | | | | | | | | Jannette Spears MD | | | | | | [address] | | | | | | [place] [address] | | | | | | [phone] | | | | | | | | | | | | Andrey Gatica DO | | | | | | [address] | | | | | | [place] [address] | | | | | | [phone] | | | | | | | [...] might be different from th e original. [facility] MEDICAL HOSPITALIST TEAM Patient leave AGAINST MEDICAL ADVICE documentation Pt. Name/Age/: Brooks Marquez 28 y.o. 1990 Date of Admission: 06/09/2019 Date of leaving hospital AGAINST MEDICAL ADVICE: 2018 PCP: Erich Yates Note sql report writer provider: Solomon Jonas MD HPI/Reason for Admission:-Chest pain with elevated troponin Hospital course, including complications: 28 years old gentleman with type 1 diabetes with renal complication and gastroparesis hyper tension chronic kidney disease stage III, chronic pain on narcotics status post right BKA fo r necrotizing fasciitis October 2018 transferred to [facility] from [facility] for anup st pain and elevated troponin Associated symptoms are diarrhea ongoing for which he stated as a chronic at admitting prov ider he has track layer head in [place] and EGD with history of gastric ulcers He also have gastropathy which was documented in [facility] by gastric emptying study in [...] insulin IV morphine and tra nsferred to [facility] due to elevated troponin EKG shows sinus tachycardia no acute ischemic brown e repeat troponin at [facility] was unremarkable by record Patient was admitted [...] a scheduled gastroenterology appointment in June at [facility] for p ossible gastric pacemaker [...] - 06/10/2019 4:55 AM PDTPt transferred from [facility]. Admitted by Dr. Ramakrishna Spears. Ewa [...] Spears MD - 06/09/2019 9:43 PM PDT [facility] Service: Hospitalist Admission History & Physical [...] 11/14 who who was transferred here from [facility] for chest pain and elevated troponin. [...] hospitalized several times for this. He saw track layer head in [place] 3 years ago and had an EGD which showed small gastric ulcers. He has also had a gastric emptying s tudy done at [facility] in 2013 that showed delayed emptying. He is scheduled to follow-up with [facility]ology at [facility] in June 2019 for consideration [...] drug use. In the emergency department at [facility] his pulse was 132. He was afebrile [...] with no ischemic changes. Repeat troponin at [facility] is unremarkable . REVIEW OF SYSTEMS Review [...] STENT PLACEMENT; Surgeon: Tc Mora MD; Location: [facility] MAIN OR Allergies Allergen Reactions Codeine Nausea [...] PLAN Chest pain: With elevated troponin at [facility] and has been unremarkable at [facility]. I feel his elevated troponin [...] scheduled to see gastroenterology in June at [facility] for gastric pacemaker. Severe protein calorie malnutrition: Patient has lost 90 pounds in the last 5 years and has decrease in appetite and oral intake. Will consult dietary. Acute on chronic kidney disease stage III: Patient follows with Dr. Whitman and has a baselin e creatinine per previous charting of 1.5 1.9. Creatinine at [facility] was 2.14. T his is most likely [...] 2019 | Visit | | [address] [facility] | | | | | | [address] [place], [place] | | | | | | [address] | | | | | | | [...] Testing | 65 - 99 mg/dL | [facility] | | | POC | performed at [facility];[address] | | LABORATORY | | | | [address];[place], [place] | | | | | | [address] | | | | + + + + + + + + | Specimen | + + | | + + + + + + + | Performing | Address | City/State/Zipcode | Phone Number | | Organization | | | | + + + + + | [facility] | [address] | [place] [address] | [phone] | + + + + + Troponin I (06/10/2019 5:58 AM PDT) + + + + + + | Component | Value | Ref Range | Performed | Pathologist | | | | | At | Signature | + + + + + + | Troponin I | <0.006Comment: 0.04 | 0.00 - 0.04 | [facility] | | | | ng/mL or [...] at | | | | | | [facility];[address] [place] [address] | | | | | | vd;[place] [address] | | | | + + + + + + + + | Specimen | + + | | + + + + + + + | Performing | Address | City/State/Zipcode | Phone Number | | Organization | | | | + + + + + | [facility] | [address] | [place] [address] | [phone] | + + + + + Hemoglobin A1C (06/10/2019 5:58 AM PDT) + + + + + + | Component | Value | Ref Range | Performed | Pathologist | | | | | At | Signature | + + + + + + | Hemoglobin | 8.8 (H)Comment: HbA1c | 4.0 - 6.0 % | [facility] | | | A1c | method [...] | 206 (H)Comment: | <154 mg/dL | [facility] | | | Average | Estimated Average | | LABORATORY | | | Glucose | Glucose calculated from | | | | | | hemoglobin A1c by use of | | | | | | the ADArecommended | | | | | | formula.Testing | | | | | | performed at [facility], [address] | | | | | | [address], | | | | | | [place] [address] | | | | + + + + + + + + | Specimen | + + | Blood | + + + + + + + | Performing | Address | City/State/Zipcode | Phone Number | | Organization | | | | + + + + + | [facility] | [address] | [place] [address] | [phone] | + + + + + TSH (06/10/2019 5:58 AM PDT) + + + + + + | Component | Value | Ref Range | Performed | Pathologist | | | | | At | Signature | + + + + + + | TSH | 0.811Comment: Testing | 0.450 - 5.100 | [facility] | | | | performed at [facility];[address] | uIU/mL | LABORATORY | | | | [address];[place], [place] | | | | | | [address] | | | | + + + + + + + + | Specimen | + + | Blood | + + + + + + + | Performing | Address | City/State/Zipcode | Phone Number | | Organization | | | | + + + + + | [facility] | [address] | [place] [address] | [phone] | + + + + + Basic [...] | | | | | performed at [facility];[address] | | | | | | [address];[place] | | | | | | [address] | | | | + + + + + + + + | Specimen | + + | Blood | + + + + + + + | Performing | Address | City/State/Zipcode | Phone Number | | Organization | | | | + + + + + | [facility] | [address] | [place] [address] | [phone] | + + + + + CBC [...] [facility] | | | | performed at [facility];[address] | | LABORATORY | | | | [address];[place], [place] | | | | | | [address] | | | | + + + + + + + + | Specimen | + + | Blood | + + + + + + + | Performing | Address | City/State/Zipcode | Phone Number | | Organization | | | | + + + + + | [facility] | [address] | [place] [address] | [phone] | + + + + + ECG [...] | | | POC | performed at [facility];[address] | | LABORATORY | | | | [address];[place], [place] | | | | | | [address] | | | | + + + + + + + + | Specimen | + + | | + + + + + + + | Performing | Address | City/State/Zipcode | Phone Number | | Organization | | | | + + + + + | [facility] | [address] | [place] [address] | [phone] | + + + + + Troponin I (06/09/2019 11:38 PM PDT) + + + + + + | Component | Value | Ref Range | Performed | Pathologist | | | | | At | Signature | + + + + + + | Troponin I | <0.006Comment: 0.04 | 0.00 - 0.04 | [facility] | | | | ng/mL or [...] at | | | | | | [facility];[address] [facility] | | | | | | [facility];[place] [address] | | | | + + + + + + + + | Specimen | + + | Blood | + + + + + + + | Performing | Address | City/State/Zipcode | Phone Number | | Organization | | | | + + + + + | [facility] | [address] | [place] [address] | [phone] | + + + + + Lipid [...] | | | Calculated | performed at [facility], [address] | | LABORATORY | | | | [address], | | | | | | [place] [address] | | | | + + + + + + + + | Specimen | + + | Blood | + + + + + + + | Performing | Address | City/State/Zipcode | Phone Number | | Organization | | | | + + + + + | [facility] | [address] | [place] [address] | [phone] | + + + + + Troponin [...] at | | | | | | [facility];[address] [facility] | | | | | | Blvd;[place] [address] | | | | + + + + + + + + | Specimen | + + | Blood | + + + + + + + | Performing | Address | City/State/Zipcode | Phone Number | | Organization | | | | + + + + + | [facility] | [address] | [place] [address] | [phone] | + + + + + POC Glucose (06/09/2019 8:30 PM PDT) + + + + + + | Component | Value | Ref Range | Performed | Pathologist | | | | | At | Signature | + + + + + + | Glucose, | 152 (H)Comment: Testing | 65 - 99 mg/dL | [facility] | | | POC | performed at [facility];[address] | | LABORATORY | | | | [address];[place], [place] | | | | | | [address] | | | | + + + + + + + + | Specimen | + + | | + + + + + + + | Performing | Address | City/State/Zipcode | Phone Number | | Organization | | | | + + + + + | [facility] | [address] | [place] [address] | [phone] | + + + + + documented [...]
--- OUTSIDE RECORDS SUMMARY | ~2020-03-21 | XMS | Encounter Summary ---
Demographics + + + | Address | [address] | | | [place] [address] | + + + | Home Phone [...] Samantha Ramos | ECON | [address] | | | | | [place], [place] | | | | | [address] | | + + + + + Care Team Providers + +------+ + | Care Accounts Payable Associate Name | Role | Phone | [...]
--- OUTSIDE RECORDS SUMMARY | ~2020-03-21 | XMS | Encounter Summary ---
Demographics + + + | Address | [address] | | | [place] [address] | + + + | Home Phone [...] Samantha Ramos | ECON | [address] # | | | | | [place] | | | | | [address] | | + + + + + Care Team Providers + +------+ + | Care Education Manager Name | Role | Phone | + +------+ + PCP | Unavailable | + +------+ + Encounter Details +--------+ + + + + | Date | Type | Department | Care Team | Description | +--------+ + + + + | 09/30/ | Office | [facility] | Clinic, Pediatric | Progress Note | | 2005 | Visit-Trans | METAL DOOR ASSEMBLER | Endocrinology | | | | cribed [...] as of this encounter Progress Notes Interface, Greenhouse Technician In - 04/25/2005 12:43 AM PDT [id number] NAHOMY RAYMOND BR[facility] Date: 09/30/2004 [...] eats. DENISSE Carr, CNSD, LD AT / [id number] / [id number] / [id number] / documented i n this encounter Plan of Treatment Not on filedocumented as of this encounter Visit Diagnoses Not on filedocumented in this encounter"
--- OUTSIDE RECORDS SUMMARY | ~2020-03-21 | XMS | Encounter Summary ---
Demographics + + + | Address | [address] | | | [place] [address] | + + + | Home Phone [...] + + + | Author | [facility] [place] | | | and [place] | + + + | Organization | [facility] | | [...] [place] | | | | | [address] | | + + + + + Care Team Providers + +------+ + | Care Footwear Machinery Instructor Name | Role | Phone | [...] | | | [address] | [place] [address] | | | | | [place] [address] | | | | | | [phone] | | | +--------+ + + + [...] 2019 | Visit | | [address] [facility] | | | | | | [address] [place], [place] | | | | | | [address] | | | | | | | [...]
--- OUTSIDE RECORDS SUMMARY | ~2020-03-21 | XMS | Encounter Summary ---
Demographics + + + | Address | [address] | | | [place] [address] | + + + | Home Phone [...] Samantha Ramos | ECON | [address] # | | | | | [place] | | | | | [address] | | + + + + + Care Team Providers + +------+ + | Care Rotary Drier Feeder Name | Role | Phone | [...] | | | | Mailcode: Center | [place], [place] | | | | | for Health and | [address] | | | | | [facility] 2 | [phone] | | | | | [place], [place] | | | | | | [address] | | | | | | [phone] | | | +--------+ + + + [...] - | [address] | [place], [place] | [phone] | | [place] | | | | [...] [address] | [place] | [phone] | | [place] | | | | [...] + + | [facility] - | [address] | [place] | [phone] | | [place] | | | | [...] + + | [facility] - | [address] | [place], [place] | [phone] | | [place] | | | | + + + + + documented in this encounter Visit Diagnoses + + | Diagnosis | + + | Chronic diarrhea Diarrhea | + + documented in this encounter"
--- OUTSIDE RECORDS SUMMARY | ~2020-03-21 | XMS | Encounter Summary ---
Demographics + + + | Address | [address] | | | [place] [address] | + + + | Home Phone [...] Samantha Ramos | ECON | [address] # | | | | | [place] | | | | | [address] | | + + + + + Care Team Providers + +------+ + | Care Addictions Counselor Name | Role | Phone | [...] | Only | [facility] [address] | CARTON CATCHER [address] | | | | | [address] | [address] | | | | | Mailcode: PV430 | [place] [address] | | | | | [facility] | [phone] | | | | | [place], [place] | | | | | | [address] | | | | | | [phone] | | | +--------+ + + + [...]
--- OUTSIDE RECORDS SUMMARY | ~2020-03-21 | XMS | Encounter Summary ---
Demographics + + + | Address | [address] | | | [place] [address] | + + + | Home Phone [...] Samantha Ramos | ECON | [address] # | | | | | [place] | | | | | [address] | | + + + + + Care Team Providers + +------+ + | Care Harness Tier Name | Role | Phone | + [...] Pharmacy | | | | | | [address] | | | | | | [place], [place] | | | | | | [address] | | | | | | [phone] | | | +--------+ + + + [...]
--- OUTSIDE RECORDS SUMMARY | ~2020-03-21 | XMS | Encounter Summary ---
Demographics + + + | Address | [address] | | | [place] [address] | + + + | Home Phone [...] [place] | | | | | [address] | | + + + + + Care Team Providers + +------+ + | Care Mustanger Name | Role | Phone | + +------+ + | Emmanuel Saavedra | PCP | | + +------+ + Reason for Visit +---------+ + | Reason | Comments | +---------+ + | Results | 02/27/20 | +---------+ + Encounter Details +--------+ + + + + | Date | Type | Department | Care Team | Description | +--------+ + + + + | 02/27/ | Documentati | [facility] | Marks, | Results (02/27/20) | | 2020 | on | NEPHROLOGY [place] | Alonzo Campos | | | | | [address] | Registered Sales Assistant | | | | | [address] [place] [address] | | | | | | [address] | | | | | | [phone] | | | +--------+ + + + [...] 2019 | Visit | | [address] [facility] | | | | | | [address] [place] | | | | | | [address] | | | | | | | | +--------+---------+ + + + documented as of this encounter Procedures + +--------+ + + + | Procedure Name | Priori | Date/Time | Associated Diagnosis | Comments | | | ty | | | | + +--------+ + + + | EXTERNAL LAB: [facility], | Routin | 02/27/2020 | | Results [...] this encounter Results External Lab: PTH, Intact (02/27/2020) + +-------+ + + + | Component [...] + + | | + + Urinalysis (02/27/2020) + + + + + + [...] 1.001 - 1.030 | | | | [place], | | | | | | Urine [...] | + + CBC with Manual Differential (02/27/2020) + + + + + + [...] + + Iron and Iron Binding Capacity (02/27/2020) + + + + + + [...] Blood | + + Renal Function Panel (02/27/2020) + + + + + + | Component | Value | Ref Range | Performed | Pathologist | | | | | At | Signature | + + + + + + | Na | 146 (A) | 132 - 143 | | | | | | mmol/L | | | + + + + + + | K | 4.3 | 3.6 - 5.1 | | | | | | mmol/L | | | + + + + + + | Cl | 109 | 95 - 112 mmol/L | | | + + + + + + | CO2 | 21 | 19 - 31 mmol/L | | | + + + + + + | Anion Gap | 20 | 7 - 21 mmol/L | | | + + + + + + | Glucose | 252 (A) | 70 - 100 mg/dL | | | + + + + + + | BUN | 56 (A) | 6 - 23 mg/dL | | | + + + + + + | Creatinine | 4.74 (A) | 0.60 - 1.35 | | | | | | mg/dL | | | + + + + + + | Estimated | 15.0 (A) | 60.0 - 140.0 | | | | GFR | | mL/min/1.73m2 | | | + + + + + + | BUN/Creatin | 11.8 | 6.0 - 28.6 | | | | ine Ratio | | | | | + + + + + + | Albumin | 1.8 (A) | 3.5 - 5.0 g/dL | | | + + + + + + | Calcium | 7.5 (A) | 8.5 - 10.3 | | | + + + + + + | PHOSPHORUS | 7.9 (A) | 2.5 - 5.0 | | [...]
--- OUTSIDE RECORDS SUMMARY | ~2020-03-21 | XMS | Encounter Summary ---
Demographics + + + | Address | [address] | | | [place] [address] | + + + | Home Phone [...] [place] | | | | | [address] | | + + + + + Care Team Providers + +------+ + | Care Watch Repairer Name | Role | Phone | + +------+ + | Erich Yates | PCP | | + +------+ + Encounter Details +--------+ + + + + | Date | Type | Department | Care Team | Description | +--------+ + + + + | 01/11/ | Orders Only | [facility] | Conversion | | | 2018 | | NEPHROLOGY [place] | Transaction, | | | | | [address] | Provider Unknown | | | | | [address] [place], [place] | | | | | | [address] | (Fax) | | | | | [phone] | | | +--------+ + + + [...] | Visit | | [address] [facility] | | | | | | [address] [place], [place] | | | | | | [address] | | | | | | | [...]
--- OUTSIDE RECORDS SUMMARY | ~2020-03-21 | XMS | Encounter Summary ---
Demographics + + + | Address | [address] | | | [place] [address] | + + + | Home Phone [...] + + + | Author | [facility] | | | and [place] | + + + | Organization | [facility] | | [...] [place] | | | | | [address] | | + + + + + Care Team Providers + +------+ + | Care Tank Bottom Assembler Name | Role | Phone | + +------+ + | Erich Yates | PCP | | + +------+ + Encounter Details +--------+ + + + + | Date | Type | Department | Care Team | Description | +--------+ + + + + | 09/13/ | Orders Only | [facility] | Conversion | | | 2017 | | NEPHROLOGY [place] | Transaction, | | | | | [address] | Provider Unknown | | | | | [address] [place], [place] | [phone] | | | | | [phone] | (Fax) | | | | | [phone] | | | +--------+ + + + [...] 2020 | Visit | | [address] [facility] | | | | | | [address] | | | | | | [address] | | | | | | | [...] - 1.030 | EXTERNAL | | | [place], | | | LAB | | | [...] - 1.030 | EXTERNAL | | | [facility], | | | LAB | | | [...]
--- OUTSIDE RECORDS SUMMARY | ~2020-03-21 | XMS | Encounter Summary ---
Demographics + + + | Address | [address] | | | [place] [address] | + + + | Home Phone [...] Samantha Ramos | ECON | [address] # | | | | | [place] | | | | | [address] | | + + + + + Care Team Providers + +------+ + | Care Supervisor Livestock Yard Name | Role | Phone | + [...] | | 2020 | | Center at [facility] [address] | [address] | | | | | [address] | [place], | | | | | Mailcode: [place] | [place] [address] | | | | | for Health and | [phone] | | | | | [facility] 2 | | | | | | [place], [place] | | | | | | [address] | | | | | | [phone] | | | +--------+ + + + [...]
--- OUTSIDE RECORDS SUMMARY | ~2020-03-21 | XMS | Encounter Summary ---
Demographics + + + | Address | [address] | | | [place] [address] | + + + | Home Phone [...] Samantha Ramos | ECON | [address] # | | | | | [place] | | | | | [address] | | + + + + + Care Team Providers + +------+ + | Care Buffet Attendant Name | Role | Phone | [...] [address] | | | | | [place], [place] | [place], [place] | | | | | [address] | [address] | | | | | [phone] | [phone] | | | | | | | [...] | [facility] | [address] | [place] [address] | | | PATHOLOGY | [address] | | | + + + + + | [facility] | [address] | [place] [address] | | | PATHOLOGY | [address] | | | + + + + + documented in this encounter Visit Diagnoses Not on filedocumented in this encounter"
--- OUTSIDE RECORDS SUMMARY | ~2020-03-21 | XMS | Encounter Summary ---
Demographics + + + | Address | [address] | | | [place] [address] | + + + | Home Phone [...] Samantha Ramos | ECON | [address] # | | | | | [place] | | | | | [address] | | + + + + + Care Team Providers + +------+ + | Care Salesperson Flying Squad Name | Role | Phone | + +------+ + | Erich Yates PA-C | PCP | | + +------+ + Encounter Details +--------+ + + + + | Date | Type | Department | Care Team | Description | +--------+ + + + + | 11/28/ | Anesthesia | [facility]O [facility] at [facility] | Beth Nash, | | | 2019 | Event | [facility] [address] | RN [address] [facility] | | | | | [place] Nguyen Mailcode: | [address] | | | | | [facility] for | [place], [place] | | | | | Health and Healing, | [address] | | | | | Building [address] | | | | | | [place], [place] | | | | | | [address] | | | | | | [phone] | | | +--------+ + + + [...]
--- OUTSIDE RECORDS SUMMARY | ~2020-03-21 | XMS | Encounter Summary ---
Demographics + + + | Address | [address] | | | [place] [address] | + + + | Home Phone [...] Samantha Ramos | ECON | [address] # | | | | | [place], [place] | | | | | [address] | | + + + + + Care Team Providers + +------+ + | Care Clerical Adjuster Name | Role | Phone | + [...] as of this encounter Progress Notes Interface, Forms Analyst In - 04/25/2005 2:09 AM PDT [id number] 12/11/2004 12/11/2004 [id number] NAHOMY Durbin [facility] [address] [place], [place] [id number] or December 11, 2004 Neri Mojica MD [address], [place] [address] RE: BROOKS MARQUEZ II MR #: [id number] Dear Dr. Mojica: I reviewed Brooks in [facility] Clinic today. This is his second visit our clinic, having established care here in September. To recap, he was diagnosed with type 1 diabetes in April 2002 and initially received his education in [facility]. He has been followed by yourself until [...] at this present time, although I did activities counselor him that this would be optimal [...] months' time. Yours sincerely, Ashanti Roque M.D. Senior Policy Associate, Pediatric Endocrinology / [id number] / [id number] / [id number] / documented i n this encounter Plan of Treatment Not on filedocumented as of this encounter Visit Diagnoses Not on filedocumented in this encounter"
--- OUTSIDE RECORDS SUMMARY | ~2020-03-21 | XMS | Encounter Summary ---
Demographics + + + | Address | [address] | | | [place] [address] | + + + | Home Phone [...] Samantha Ramos | ECON | [address] # | | | | | [place] | | | | | [address] | | + + + + + Care Team Providers + +------+ + | Care Cnc Grinder Name | Role | Phone | + [...] Mailcode: | | | | | | [place], [place] | [address] | | | | | manifestatio | [address] | for Health | | | | | n ([facility]) | Phone: | and Healing, | | | | | Procedures | [phone] | Building 1, | | | | | CONSULT TO | Fax: | 11th Floor | | | | | OPHTHALMOLOG | [phone] | [place], [place] | | | | | Y | | [address] | | | | | | | Phone: | | | | | | | [phone] | | | | | | | Fax: | | | | | | | [phone] | +--------+--------+ + + + + Reason [...] | | | with type 1 | [address] | 140 | | | | | diabetes | Phone: | [place], [place] | | | | | mellitus | [phone] | [address] | | | | | (HCC) Type | Fax: | Phone: | | | | | 1 diabetes | [phone] | [phone] | | | | | mellitus | | Fax: | | | | | with | | [phone] | | | | | hyperglycemi | [...] | | | [address] | [place], [place] | ([facility]) (Primary Dx); | | | | [address] | [address] | Hyperglycemia due to | | | | [facility] | [phone] | type 1 diabetes | | | | [address] [place], | | mellitus (HCC); Leg | | | | [place] [address] | | wound, right, | | | | [phone] | | initial encounter | +--------+---------+ + [...] might be different f rom the original. [facility] Diabetes Clinic New Patient Consultation Referring physician: Jaison Pascual DO Primary care provider: Jaison Pascual DO Reason for Consultation: Type 1 diabetes History of Present Illness: This is a new patient to my clinic. Brooks Marquez II is a 24 y.o. male referred for evaluation of type 1 diabetes. Diagnosed in 2001. Seen in childhood in [facility] pediatric endocr inology. Long-standing suboptimal control. Diabetes complicated by gastroparesis and has bee n seen in the ER frequently. Multiple past episodes of DKA, most recently earlier this month at [facility]. Frequent nausea. Doing well since discharge and no current issues with vomiting. N o numbness/tingling. Did not have insurance for a period of time and was paying out of [employer] for his insulin approx 1 year ago [...] + tobacco use: 1/2 ppd. 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 Allergies: Allergies Allergen Reactions Codeine Nausea and [...] random - Final result (09/02/2015 8:48 AM [facility]) Component Value Range Microalb, Ur [...] Hyperglycemia due to type 1 diabetes mellitus ([facility]) S81.801A Leg wound, right, initial [...] hair in lower extremities. [facility]. Discussed conservative measures for wound and signs/symptoms [...] | | | LABORATORY | | | [place] | | | SERVICES, | | | [...] | + + + + + | [facility] | [address] | [place] [address] | | | SERVICES, CORE | ZENA [...]
--- OUTSIDE RECORDS SUMMARY | ~2020-03-21 | XMS | Encounter Summary ---
Demographics + + + | Address | [address] | | | [place] [address] | + + + | Home Phone | | + + + | Preferred Language | Unknown | + + + | Marital Status | Single | + + + | Synagogue Affiliation | Unknown | + + + | Race | Unknown | + + + | Ethnic Group | Unknown | + + + Author + + + | Author | [facility] | | | and [place] | + + + | Organization | [facility] | | [...] [place] | | | | | [address] | | + + + + + Care Team Providers + +------+ + | Care Production Lapping Machine Operator Name | Role | Phone [...] + + | 09/29/ | Office | [facility] | Tc Mora | Nephrolithiasis | | 2019 | Visit | [address] | MD Boyd [address] | (Primary Dx); | | | | [place] Ricardo | [place] | Hyperkalemia; Stage | | | | [address] | [address] | 3 chronic kidney | | | | [phone] | | disease (HCC) | +--------+---------+ + [...] [facility] [place] Family History: Family History [...] pH, Urine 6.0 5.0 - 8.0 Specific [place]well 1.012 1.001 - 1.030 Protein, Urine 100 [...] ECGs available Confirmed by KARO FLORES, CRISTINE ([id number]) on 09/21/2018 6:31:13 AM Lab Results Component [...] have not thoroughly proofread this note, and accounting teacher errors are very likely to occur. CC: VIKI Anand documented in this encounter Plan of Treatment +--------+---------+ + + + | Date | Type | Specialty | Care Team | Description | +--------+---------+ + + + | 05/07/ | Office | Nephrology | Winston Whitman MD | | | 2020 | Visit | | [address] [facility] [facility] [facility] | | | | | | [address] [place], [place] | | | | | | [address] | | | | | | | | +--------+---------+ + + + documented as of this encounter Visit Diagnoses + + | Diagnosis | + + | Nephrolithiasis - Primary Calculus of kidney | + + | Hyperkalemia Hyperpotassemia | + + | Stage 3 chronic kidney disease (HCC) | + + documented in this encounter
--- OUTSIDE RECORDS SUMMARY | ~2020-03-21 | XMS | Encounter Summary ---
Demographics + + + | Address | [address] | | | [place] [address] | + + + | Home Phone [...] Samantha Ramos | ECON | [address] # | | | | | [place] | | | | | [address] | | + + + + + Care Team Providers + +------+ + | Care Freight Sorter Name | Role | Phone | + [...] | | | | Mailcode: PV430 | [place], [place] | | | | | [facility] | [address] | | | | | [place], [place] | [phone] | | | | | [address] | | | | | | [phone] | | | +--------+ + + + [...]
--- OUTSIDE RECORDS SUMMARY | ~2020-03-21 | XMS | Encounter Summary ---
Demographics + + + | Address | [address] | | | [place] [address] | + + + | Home Phone [...] Samantha Ramos | ECON | [address] # | | | | | [place] | | | | | [address] | | + + + + + Care Team Providers + +------+ + | Care Vacuum Metalizing Supervisor Name | Role | Phone | [...] | | | | | [place] | [facility] [address] | | | | | | CLINIC | [place] | | | | | | FIFI | [place] | | | | | | BUILDING | [place], [place] | | | | | | [address] | [address] | | | | | | [address] | Phone: | | | | | | [place], | [phone] | | | | | | [place] [address] | Fax: | | | | | | Phone: | [phone] | | | | | | [phone] | | | | | | | Fax: | | | | | | | [phone] | | +--------+--------+ + + + + [...] | | | | [facility] | [place], [place] | | | | | [address] | [address] | | | | | [place] | [phone] | | | | | [place], [place] | | | | | | [address] | | | | | | [phone] | | | +--------+ + + + [...] as of this encounter Progress Notes Interface, Grants Analyst In - 12/15/2006 6:28 AM JOHNNY [id number] NAHOMY Durbin [id number] Clinic Date: 11/02/2006 Clinic: Pediatric Endocrinology Problem [...] regimen as necessary. Ashanti Roque M.D. / [id number] / [id number] / [id number] / [id number] cc: Neri Mojica M.D. [address] [place] MedRecNo: [id number], Account: [id number], DocSeq: [id number] Addendum December 09 2006 Alin's random urine [...] VERDE | [address] | [place], [place] | | | [place] POINT OF CARE | [facility] | [address] | | | TESTS | | | | + + + + + | [facility] | [address] | [place], [place] | | | TESTS | [facility] | [address] | | + + + + + documented in this encounter Visit Diagnoses Not on filedocumented in this encounter"
--- OUTSIDE RECORDS SUMMARY | ~2020-03-21 | XMS | Encounter Summary ---
Demographics + + + | Address | [address] | | | [place] [address] | + + + | Home Phone | | + + + | Preferred Language | Unknown | + + + | Marital Status | Single | + + + | Mosque Affiliation [...] [address] | | | | | [address] | | + + + + + Care Team Providers + +------+ + | Care Oil Refinery Process Technician Name | Role | Phone | [...] + + | 03/22/ | Telephone | [facility] | [facility], | [facility] | | 2019 | | GASTROENTEROLOGY | DANA [address] | | | | | [address] | [address] | | | | | [address] [place], [place] | [place], [place] | | | | | [address] | [address] | | | | | [phone] | | | +--------+ + + + [...] , she has been in contact with [facility] and they are reconsidering the original referral to them to g et this patient in for an appointment. She asked that I fax the referral to them. This has b een faxed. elephon e Encounter - Alessio Laura - 03/26/2019 8:36 AM PDTName of Caller: Jenni from [facility] Name of Patient: Brooks Marquez Reason for call: Jenni called again and wanted to speak with the clinical staff in regards to his [facility] referral being declined. Provider/Nurse: Tod Garcia Call back number: [phone] elephone Encounter - Alessio Gaston - 03/22/2019 3:20 PM PDTName of Caller: Jenni from [facility] Name of Patient: Brooks Marquez "Alin" Reason for call: Jenni wanted to speak with [facility] clinical staff in regards to referra l to [facility] , being declined due to patient, outside a 90 miles radius. [facility] referred patient to Dr. Carson Houston. Routing to clinical staff. Please return call. pm Provider/Nurse: Allie / Call back number: [phone] documented in this enco unter Plan of Treatment +--------+---------+ + + + | Date | Type | Specialty | Care Team | Description | +--------+---------+ + + + | 05/07/ | Office | Nephrology | Winston Whitman MD | | | 2020 | Visit | | [address] [facility] | | | | | | [address] [facility] [place] | | | | | | [address] | | | | | | | | +--------+---------+ + + + documented as of this encounter Visit Diagnoses Not on filedocumented in this encounter
--- OUTSIDE RECORDS SUMMARY | ~2020-03-21 | XMS | Encounter Summary ---
Demographics + + + | Address | [address] | | | [place] [address] | + + + | Home Phone [...] Samantha Ramos | ECON | [address] # | | | | | [place] | | | | | [address] | | + + + + + Care Team Providers + +------+ + | Care Currency Machine Operator Name | Role | Phone [...] | | | | | gastroparesi | [address] [facility] | | | | | | s associated | Gurpreet Bautista | | | | | | with type 1 | Rd | | | | | | diabetes | [place], [place] | | | | | | mellitus | [address] | | | | | | ([facility]) | Phone: | | | | | | Procedures | [phone] | | | | | | NM GASTRIC | Fax: | | | | | | EMPTYING | [phone] | | | | | | STUDY [...] | | | | | diabetes | [place], [place] | floor | | | | | mellitus | [address] | [place], [place] | | | | | ([facility]) | Phone: | [address] | | | | | Procedures | [phone] | Phone: | | | | | CONSULT TO | Fax: | [phone] | | | | | GI PROCEDURE | [phone] | Fax: | | | | | UNIT: EGD | | [phone] | + +--------+ + + + + Encounter Details +--------+ + + + + | Date | Type | Department | Care Team | Description | +--------+ + + + + | 07/04/ | Law Reporter | Digestive Health | Neri Steven MD | Diabetic | | 2019 | | Center at [facility] [address] | [address] | gastroparesis | | | | [address] | Lily Todd [place], | associated with type | | | | Mailcode: [place] | [place] [address] | 1 diabetes mellitus | | | | for Health and | [phone] | ([facility]) (Primary Dx) | | | | Healing, Building [address] | | | | | | [place], [place] | | | | | | [address] | | | | | | [phone] | | | +--------+ + + + [...] mellitus | | | | | | ([facility]) | | + +---------+--------+ + + documented as of this encounter Visit Diagnoses + + | Diagnosis | + + | Diabetic gastroparesis associated with type 1 diabetes mellitus (HCC) - Primary | + + documented in this encounter"
--- OUTSIDE RECORDS SUMMARY | ~2020-03-21 | XMS | Encounter Summary ---
Demographics + + + | Address | [address] | | | [place] [address] | + + + | Home Phone [...] Samantha Ramos | ECON | [address] # | | | | | [place], [place] | | | | | [address] | | + + + + + Care Team Providers + +------+ + | Care Print Journalist Name | Role | Phone | + [...] | | | | | | [place], [place] | | | | | | [address] | | | | | | [phone] | | | | | | | [...] DEPARTMENT OF | [address] | [place] [address] | | | PATHOLOGY | [address] | | | + + + + + | [facility] DEPARTMENT OF | [address] | [place] [address] | | | PATHOLOGY | [address] [...] | + + + + + | [facility] | [address] | [place] [address] | | | PATHOLOGY | [address] | | | + + + + + | [facility] | [address] | [place] [address] | | | PATHOLOGY | [address] [...] DEPARTMENT OF | [address] | [place] [address] | | | PATHOLOGY | [address] | | | + + + + + | [facility] DEPARTMENT OF | [address] | [place] [address] | | | PATHOLOGY | [address] [...] + | [facility] DEPARTMENT OF | [address] | [place] [address] | | | PATHOLOGY | [address] | | | + + + + + | [facility] DEPARTMENT OF | [address] | [place] [address] | | | PATHOLOGY | [address] [...] | + + + + + | [facility] DEPARTMENT OF | [address] | [place] [address] | | | PATHOLOGY | [address] | | | + + + + + | [facility] DEPARTMENT OF | [address] | [place] [address] | | | PATHOLOGY | [address] [...] Performed At | + + + | [id number] CALCIUM Checked and phoned. | [facility] | | | DEPARTMENT OF | | | PATHOLOGY | + + + + + + + + | Performing | Address | City/State/Zipcode | Phone Number | | Organization | | | | + + + + + | [facility] DEPARTMENT OF | [address] | [place] [address] | | | PATHOLOGY | [address] | | | + + + + + | [facility] DEPARTMENT OF | [address] | [place] [address] | | | PATHOLOGY | [address] | | | + + + + + CHEMISTRY MASTER PANEL (12/03/2002 6:00 AM PST) + + | Specimen | + + | | + + + + + | Narrative | Performed At | + + + | [id number] CALCIUM Checked and phoned. | [facility] | | | DEPARTMENT OF | | | PATHOLOGY | + + + + + + + + | Performing | Address | City/State/Zipcode | Phone Number | | Organization | | | | + + + + + | [facility] DEPARTMENT OF | [address] | [place] [address] | | | PATHOLOGY | [address] | | | + + + + + | [facility] DEPARTMENT OF | [address] | [place] [address] | | | PATHOLOGY | [address] [...] DEPARTMENT OF | [address] | [place] [address] | | | PATHOLOGY | [address] | | | + + + + + | [facility] DEPARTMENT OF | [address] | [place] [address] | | | PATHOLOGY | [address] | | | + + + + + MAGNESIUM, PLASMA (12/03/2002 2:20 AM PST) + +-------+ + + + | Component | Value | Ref Range | Performed | Pathologist | | | | | At | Signature | + +-------+ + + + | MAGNESIUM,P | 1.9 | 1.8 - 2.5 mg/dL | [facility] | | | LASMA | [...] | + + + + + | [facility] | [address] | [place] [address] | | | PATHOLOGY | [address] | | | + + + + + | [facility] | [address] | [place] [address] | | | PATHOLOGY | [address] [...] DEPARTMENT OF | [address] | [place] [address] | | | PATHOLOGY | [address] | | | + + + + + | [facility] DEPARTMENT OF | [address] | [place] [address] | | | PATHOLOGY | [address] [...] | + + + + + | [facility] | [address] | [place] [address] | | | PATHOLOGY | [address] | | | + + + + + | [facility] | [address] | [place] [address] | | | PATHOLOGY | [address] [...] | | | | Test performed by [facility] | | | | | | [facility] | | | | | | Danii. | | | | + + + + + + + + | Specimen | + + | | + + + + + + + | Performing | Address | City/State/Zipcode | Phone Number | | Organization | | | | + + + + + | [facility] | [address] | [place] [address] | | | LABORATORY | | | [...] | + + + + + | [facility] DEPARTMENT OF | [facility] | [place] [address] | | | PATHOLOGY | [address] | | | + + + + + | [facility] DEPARTMENT OF | [facility] | [place] [address] | | | PATHOLOGY | [address] [...] Performed At | + + + | [id number] Checked and phoned. CO2 [id number] Checked and phoned. | [facility] | | | DEPARTMENT OF | | | PATHOLOGY | + + + + + + + + | Performing | Address | City/State/Zipcode | Phone Number | | Organization | | | | + + + + + | [facility] DEPARTMENT OF | [address] | [place] [address] | | | PATHOLOGY | [address] | | | + + + + + | [facility] DEPARTMENT OF | [address] | [place] [address] | | | PATHOLOGY | [address] | | | + + + + + MAGNESIUM, PLASMA (12/02/2002 6:45 PM PST) + +-------+ + + + | Component | Value | Ref Range | Performed | Pathologist | | | | | At | Signature | + +-------+ + + + | MAGNESIUM,P | 1.8 | 1.8 - 2.5 mg/dL | [facility] | | | [facility] | | | DEPARTMENT | | | | | | OF | | | | | | PATHOLOGY | | + +-------+ + + + + + | Specimen | + + | | + + + + + | Narrative | Performed At | + + + | [id number] Checked and phoned. CO2 [id number] Checked and phoned. | [facility] | | | DEPARTMENT OF | | | PATHOLOGY | + + + + + + + + | Performing | Address | City/State/Zipcode | Phone Number | | Organization | | | | + + + + + | [facility] DEPARTMENT OF | [address] | [place] [address] | | | PATHOLOGY | [address] | | | + + + + + | [facility] DEPARTMENT OF | [address] | [place] [address] | | | PATHOLOGY | [address] | | | + + + + + PHOSPHORUS, PLASMA (12/02/2002 6:45 PM PST) + +-------+ + + + | Component | Value | Ref Range | Performed | Pathologist | | | | | At | Signature | + +-------+ + + + | PHOSPHORUS, | 3.0 | 2.5 - 5.0 mg/dL | [facility] | | | PLASMA | | | DEPARTMENT | | | (LAB) | | | OF | | | | | | PATHOLOGY | | + +-------+ + + + + + | Specimen | + + | | + + + + + | Narrative | Performed At | + + + | [id number] Checked and phoned. CO2 [id number] Checked and phoned. | [facility] | | | DEPARTMENT OF | | | PATHOLOGY | + + + + + + + + | Performing | Address | City/State/Zipcode | Phone Number | | Organization | | | | + + + + + | [facility] DEPARTMENT OF | [address] | [place] [address] | | | PATHOLOGY | [address] | | | + + + + + | [facility] DEPARTMENT OF | [address] | [place] [address] | | | PATHOLOGY | [address] | | | + + + + + CHEMISTRY MASTER PANEL (12/02/2002 6:45 PM PST) + + | Specimen | + + | | + + + + + | Narrative | Performed At | + + + | [id number] Checked and phoned. CO2 [id number] Checked and phoned. | [facility] | | | DEPARTMENT OF | | | PATHOLOGY | + + + + + + + + | Performing | Address | City/State/Zipcode | Phone Number | | Organization | | | | + + + + + | [facility] DEPARTMENT OF | [facility] | [place] [address] | | | PATHOLOGY | [address] | | | + + + + + | [facility] DEPARTMENT OF | [facility] | [place] [address] | | | PATHOLOGY | [address] | | | + + + + + documented in this encounter Visit Diagnoses Not on filedocumented in this encounter"
--- OUTSIDE RECORDS SUMMARY | ~2020-03-21 | XMS | Encounter Summary ---
Demographics + + + | Address | [address] | | | [place] [address] | + + + | Home Phone [...] [place] | | | | | [address] | | + + + + + Care Team Providers + +------+ + | Care Canvas Baster Name | Role | Phone | + +------+ + | Emmanuel Saavedra PCP | | + +------+ + Reason for Visit + +--------+ + | Reason | Onset | Comments | | | Date | | + +--------+ + | Case Management | 03/06/ | follow up about custom wheelchair | | | 2020 | | + +--------+ + Encounter Details +--------+ + + + + | Date | Type | Department | Care Team | Description | +--------+ + + + + | 03/06/ | Telephone | [facility] | Anne Neal, | Case Management | | 2019 | | MED CTR CASE | RN | (follow up about | | | | MANAGEMENT [address] | | custom wheelchair) | | | | [place], | | | | | | [place] [address] | | | | | | [phone] | | | +--------+ + + + [...] Telephone Encounter - Anne Neal RN - 03/06/2020 3:19 PM PDTOutpatient Case managem ent: Referral from inpatient PT to follow up about custom wheelchair for Alin. There are concerns that the new wheelchair will not be sufficient for patients needs. He will need to go to a wheelchair clinic as the new wheelchair needs to accommodate his many needs per PT notes in Epic. I called Ruma ([facility] case management manager) left a message on her office number and her cell number to return my call. I called and left a message with Alin's mother to please return my call. I called and spoke to Ori - [facility] [place]. She states that Nick at the [facility] Office is the contact for the custom wheelchairs. She will have Nick reach out to me. She has talked to Nick and he would like to work with our wheelchair clinic. I am waiting for a call from Nick. I called PCP: Emmanuel Saavedra [phone]- Spoke to his nurse. Requested a referral to [facility] wheelchair clinic. She requested PT notes. Faxed to [phone]. Electronically signed by: Anne Neal RN 03/06/2020 3:39 PM documented in this e ncounter Plan of Treatment +--------+---------+ + + + | Date | Type | Specialty | Care Team | Description | +--------+---------+ + + + | 05/07/ | Office | Nephrology | Winston Whitman MD | | | 2020 | Visit | | [address] [facility] | | | | | | [address] [place] | | | | | | [address] | | | | | | | | +--------+---------+ + + + documented as of this encounter Visit Diagnoses Not on filedocumented in this encounter"
--- OUTSIDE RECORDS SUMMARY | ~2020-03-21 | XMS | Encounter Summary ---
Demographics + + + | Address | [address] Estrada | | | [place] [address] | + + + | Home Phone [...] [place] | | | | | [address] | | + + + + + Care Team Providers + +------+ + | Care Slat Basket Maker Machine Name | Role | Phone | + +------+ + | Erich Yates | PCP | | + +------+ + Encounter Details +--------+ + + + + | Date | Type | Department | Care Team | Description | +--------+ + + + + | 01/11/ | Orders Only | [facility] | Winston Whitman MD | | | 2019 | | NEPRHOLOGY [place] | [address] | | | | | [address] | [address] [place], [place] | | | | | [address] [place], [place] | [address] | | | | | [address] | | | | | | [phone] | | | +--------+ + + + [...] | Visit | | [address] [facility] | | | | | | 160 [place] | | | | | | [address] | | | | | | | [...]
--- OUTSIDE RECORDS SUMMARY | ~2020-03-21 | XMS | Encounter Summary ---
Demographics + + + | Address | [address] | | | [place] [address] | + + + | Home Phone [...] Samantha Ramos | ECON | [address] # | | | | | [place] | | | | | [address] | | + + + + + Care Team Providers + +------+ + | Care Mitigation Supervisor Name | Role | Phone | [...] | | 2019 | | Center at [facility] 3485 | [address] | Appointment | | | | Zee Nguyen | [facility], | | | | | Mailcode: [place] | [place] [address] | | | | | for Health and | [phone] | | | | | [facility] 2 | | | | | | [place], [place] | | | | | | [address] | | | | | | [phone] | | | +--------+ + + + [...]
--- OUTSIDE RECORDS SUMMARY | ~2020-03-21 | XMS | Encounter Summary ---
Demographics + + + | Address | [address] | | | [place] [address] | + + + | Home Phone [...] Samantha Ramos | ECON | [address] # | | | | | [place] | | | | | [address] | | + + + + + Care Team Providers + +------+ + | Care Silk Finisher Name | Role | Phone | [...] | Diabetic | Lashawn Tan, | [address] | | | | | gastroparesi | [address] | Elliott Nguyen | | | | | s (HCC) | DIAMANTE [facility] | Mailcode: | | | | | Procedures | Gurpreet Bautista | [facility] | | | | | CONSULT TO | Rd | Health and | | | | | SURGERY - | [place], [place] | Healing, | | | | | GENERAL | [address] | Building 2 | | | | | CONSULT TO | Phone: | [place], [place] | | | | | SURGERY - | [phone] | [address] | | | | | GENERAL | Fax: | Phone: | | | | | | [phone] | [phone] | | | | | | | Fax: | | | | | | | [phone] | +--------+--------+ + + + + Reason [...] | | | ogy | Abdominal | [facility], | [address] | | | | | pain | Vicky N, | [address] | | | | | abdominal | ADVANCED MANUFACTURING VICE PRESIDENT [address] | Mailcode: | | | | | pain | [place] | [facility] | | | | | | [place] | [facility] and | | | | | | [address] | Healing, | | | | | | [place], | Building 2 | | | | | | [place] [address] | [place], [place] | | | | | | Phone: | [address] | | | | | | [phone] | Phone: | | | | | | Fax: | [phone] | | | | | | [phone] | Fax: | | | | | | | [phone] | +--------+--------+ + + + + Encounter Details +--------+---------+ + + + | Date | Type | Department | Care Team | Description | +--------+---------+ + + + | 07/02/ | Office | Digestive Health | Lashawn Joy, | Diabetic | | 2019 | Visit | Center at [facility] 3485 | [address] [facility] | gastroparesis (HCC) | | | | Zee Nguyen | [address] | (Primary Dx); | | | | Mailcode: [place] | [place], [place] | Chronic diarrhea | | | | for Health and | [address] | | | | | [facility], [facility] 2 | [phone] | | | | | [place], [place] | | | | | | [address] | | | | | | [phone] | | | +--------+---------+ + + + [...] once the orders have been submitted to [facility]. Please do not hesitate to contact my office via phone or [employer] if you have any questions. Thank you! [...] is reported. SOCIAL HISTORY: Pt lives in [place], [place] with his mother. Not working. Smokes [...] but this may be difficult for t [facility] to afford as it is not [...] Lashawn Joy PA-C [facility] AT [address] Mailcode: [place] [address] documented in this encounter Plan [...] [address] | [place] | [phone] | | EUN | | | | [...] DIAMANTE Card [address] | [place] | [phone] | | EUN | | | | [...] - | [address] | [place], [place] | [phone] | | EUN | | | | [...] DIAMANTE Card Av | [place] | [phone] | | EUN | | | | [...] | + + + + + | [employer] | [address] | [place] [address] | | | SERVICES, CORE | ZENA [...] + | [facility] - AIRPORT - | [address] | [place] [address] | | | [place] | | | | + + + [...] | | | LABORATORY | | | [place] | | | SERVICES, | | | [...] | + + + + + | [facility] [place] | [address] [facility] | [place] [address] | | | [address] | ZENA [...] + + + + + | [facility] | [address] | [place] [address] | | | SERVICES, CORE | ZENA [...]
--- OUTSIDE RECORDS SUMMARY | ~2020-03-21 | XMS | Encounter Summary ---
Demographics + + + | Address | [address] Estrada | | | [place] [address] | + + + | Home Phone [...] [place] | | | | | [address] | | + + + + + Care Team Providers + +------+ + | Care Compensation Business Partner Name | Role | Phone | + [...] | | | [address] | [place] [address] | | | | | [place] [address] | | | | | | [phone] | | | +--------+ + + + [...] 2019 | Visit | | [address] [facility] | | | | | | 160 [place], [place] | | | | | | [address] | | | | | | | [...]
--- OUTSIDE RECORDS SUMMARY | ~2020-03-21 | XMS | Encounter Summary ---
Demographics + + + | Address | [address] | | | [place] [address] | + + + | Home Phone [...] Samantha Ramos | ECON | [address] # | | | | | [place] | | | | | [address] | | + + + + + Care Team Providers + +------+ + | Care Satin Finisher Name | Role | Phone | [...] evaluation | | 2020 | cheduled | [facility] at | | | | | | [facility] | | | | | | [address] | | | | | | Mail Code: OC8PM | | | | | | [facility] | | | | | | and Healing, | | | | | | Building 2 | | | | | | [place], [place] | | | | | | [address] | | | | | | [phone] | | | +--------+ + + + [...] INSTRUCTIONS Eating/Drinking Instructions: Follow instructions provided by [facility] Endoscopy. You should have received these instruction s by mail or email. If you have not received them, contact Endoscopy at [phone]. General Medications Instructions Oral iron: If you [...] Procedure check-in location: Day Stay Unit - [facility], 4th floor Room 4519 Procedure Check in [...] ch as Uber/Lyft), or public transportation. An Uber/Lyft/hazardous materials driver does not count as the r [...] it is after office hours, call the [facility] tread tuber machine operator at [phone] and ask them to page the on-c all GI provider. Your surgical team will decide when you are medically ready to go home. documented in this encounter Plan of Treatment Not on filedocumented as of this encounter Visit Diagnoses Not on filedocumented in this encounter"
--- OUTSIDE RECORDS SUMMARY | ~2020-03-21 | XMS | Encounter Summary ---
Demographics + + + | Address | [address] Estrada | | | [place] [address] | + + + | Home Phone [...] [place] | | | | | [address] | | + + + + + Care Team Providers + +------+ + | Care Facilities Supervisor Name | Role | Phone | [...] Dx); Weight | | | | [address] [place], [place] | [place], [place] | loss; Malnutrition, | | | | [address] | [address] | unspecified type | | | | [phone] | | ([facility]); Type 1 | | | | | [...] 2020 | Visit | | [address] [facility] | | | | | | [facility] | | | | | | [address] | | | | | | | [...] | + + | Malnutrition, unspecified type ([facility]) | + + | Type 1 diabetes mellitus with nephropathy ([facility]) | + + | Anemia of chronic renal failure, stage 3 (moderate) ([facility]) | + + documented in this encounter"
--- OUTSIDE RECORDS SUMMARY | ~2020-03-21 | XMS | Encounter Summary ---
Demographics + + + | Address | [address]ada | | | [place] [address] | + + + | Home Phone [...] | Author | [facility] | [...] [place] | | | | | [address] | | + + + + + Care Team Providers + +------+ + | Care Perl Developer Name | Role | Phone | [...] | Services | ogy | Diabetic | [facility] [place], | Greg Bernardo MD | | | Required | | gastroparesi | Vicky, | [address] | | | | | s (HCC) | RETAIL BUYER [address] | | | | | Malnutrition | [address] | [address] | | | | | , | [address] | [place], [place] | | | | | unspecified | [place], | [address] | | | | | type (HCC) | [place] [address] | Phone: | | | | | Weight loss | Phone: | [phone] | | | | | | [phone] | Fax: | | | | | | Fax: | [phone] | | | | | | [phone] | | +--------+ + + + + [...] (Primary Dx); | | | | [address] [place], [place] | [place], [place] | Diabetic | | | | [address] | [address] | gastroparesis (HCC); | | | | [phone] | | Weight loss | +--------+ + [...] 2020 | Visit | | [address] [facility] | | | | | | 160 [place], [place] | | | | | | [address] | | | | | | | [...] type | | | | | | ([facility]) Weight loss | | + + +--------+ + + documented as of this encounter Visit Diagnoses + + | Diagnosis | + + | Malnutrition, unspecified type ([facility]) - Primary | + + | Diabetic gastroparesis ([facility]) 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
--- OUTSIDE RECORDS SUMMARY | ~2020-03-21 | XMS | Encounter Summary ---
Demographics + + + | Address | [address]strada | | | [place] [address] | + + + | Home Phone [...] [place] | | | | | [address] | | + + + + + Care Team Providers + +------+ + | Care Water Resource Specialist Name | Role | Phone | + +------+ + | Erich Yates | PCP | | + +------+ + Encounter Details +--------+ + + + + | Date | Type | Department | Care Team | Description | +--------+ + + + + | 09/13/ | Orders Only | [facility] | Conversion | | | 2017 | | [place]PH[place]OLOGY [place] | Transaction, | | | | | [address] | Provider Unknown | | | | | [address] [place], [place] | [phone] | | | | | [address] | (Fax) | | | | | [phone] | | | +--------+ + + + [...] | | | | | | [address] [place] | | | | | | [address] | | | | | | | [...] - 1.030 | EXTERNAL | | | [place], | | | LAB | | | [...] - 1.030 | EXTERNAL | | | [place], | | | LAB | | | [...]
--- OUTSIDE RECORDS SUMMARY | ~2020-03-21 | XMS | Encounter Summary ---
Demographics + + + | Address | [address] | | | [place] [address] | + + + | Home Phone [...] Samantha Ramos | ECON | [address] # | | | | | [place] | | | | | [address] | | + + + + + Care Team Providers + +------+ + | Care Venetian Blind Worker Name | Role | Phone | [...] 2019 | | Center at [facility] 3485 | PA-C [address] [facility] | results | | | | [address] | Gurpreet Bautista | | | | | Mailcode: Center | [place], [place] | | | | | [facility] and | [address] | | | | | [facility], [facility] 2 | [phone] | | | | | [place], [place] | | | | | | [address] | | | | | | [phone] | | | +--------+ + + + [...]
--- OUTSIDE RECORDS SUMMARY | ~2020-03-21 | XMS | Encounter Summary ---
Demographics + + + | Address | [address] | | | [place] [address] | + + + | Home Phone [...] Samantha Ramos | ECON | [address] # | | | | | [place], [place] | | | | | [address] | | + + + + + Care Team Providers + +------+ + | Care Nursing Assistants Teacher Name | Role | Phone | [...] as of this encounter Progress Notes Interface, Beater Room Helper In - 04/25/2005 12:43 AM PDT [id number] 09/30/2004 09/30/2003 [id number] NAHOMY Durbin [facility] [address] [place], [place] [address] or September 30, 2004 Neri Mojica M.D. [address] [place] [address] RE: BROOKS MARQUEZ II MR #: [id number] Dear Dr. Mojica: Diagnoses: 1. Type 1 diabetes. 2. Currently poor control. 3. Poor compliance. I reviewed Brooks Ogden in our Pediatric Endocrinology Clinic for the first time today. Alin is a 13-year 51-guqzm-yzh boy who was diagnosed with type 1 diabetes in April 2002, presenting with weight loss, polyuria, and polydipsia. Since Brooks was diagnosed, he has been mainly under your care for his diabetes, although he has been seen once at [facility]. His control has generally been very poor, and he has had 3 episodes of diabetic ketoacidosis, the last being in July 2004. At this episode, he was admitted to [facility] with moderate DKA, initial bicarbonate of [...] his new step-father and brother in the [facility]. Though there is strong family history on [...] Normal sensation. Summary: Alin is a 13-year 56-ywhmq-rtw boy with very poor diabetes control, secondary [...] or concerns. Yours sincerely, Ashanti Roque M.D. [employer] Heater of Pediatric Endocrinology / [id number] / [id number] / [id number] / documented i n this encounter Plan of Treatment Not on filedocumented as of this encounter Visit Diagnoses Not on filedocumented in this encounter"
--- OUTSIDE RECORDS SUMMARY | ~2020-03-21 | XMS | Encounter Summary ---
Demographics + + + | Address | [address] | | | [place] [address] | + + + | Home Phone [...] Samantha Ramos | ECON | [address] # | | | | | [place] | | | | | [address] | | + + + + + Care Team Providers + +------+ + | Care Line Maintenance Technician Name | Role | Phone | [...] | | | | Mailcode: Center | [place], [place] | | | | | for Health and | [address] | | | | | [facility] 2 | [phone] | | | | | [place], [place] | | | | | | [address] | | | | | | [phone] | | | +--------+ + + + [...]
--- OUTSIDE RECORDS SUMMARY | ~2020-03-21 | XMS | Encounter Summary ---
Demographics + + + | Address | [address] | | | [place] [address] | + + + | Home Phone [...] Samantha Ramos | ECON | [address] # | | | | | [place], [place] | | | | | [address] | | + + + + + Care Team Providers + +------+ + | Care Tin Recovery Worker Name | Role | Phone | [...] as of this encounter Discharge Summaries Interface, Home And School Visitor In - 04/08/2006 3:[address] [address] [facility] MEDICAL SUMMARY OF HOSPITALIZATION Med Rec [...] initially presented to the emergency department in [place] with four to five days of flu-like [...] drip. He was transferred to the [facility] Pediatric Intensive Care Unit. HOSPITAL [...] diabetes education from the endocrinology team. A hand woven carpet and rug mender also worked closely with the family in [...] Lindsey M.D. Tereso Morocho M.D. TC:x11 cc: [id number] signed by Interface, Home And School Visitor In at 04/08/2006 3:07 AM [facility] umented in this encounter Plan of Treatment Not on filedocumented as of this encounter Visit Diagnoses Not on filedocumented in this encounter"
--- OUTSIDE RECORDS SUMMARY | ~2020-03-21 | XMS | Encounter Summary ---
Demographics + + + | Address | [address] | | | [place] [address] | + + + | Home Phone [...] Samantha Ramos | ECON | [address] # | | | | | [place] | | | | | [address] | | + + + + + Care Team Providers + +------+ + | Care Supply Chain Generalist Name | Role | Phone | + [...] | Diabetic | Lashawn Tan, | [address] | | | | | gastroparesi | [address] | [place] | | | | | s (HCC) | DIAMANTE [facility] | Mailcode: | | | | | Procedures | Gurpreet Bautista | [facility] | | | | | CONSULT TO | Rd | Health and | | | | | SURGERY - | [place], [place] | Healing, | | | | | GENERAL | [address] | [address] 2 | | | | | CONSULT TO | Phone: | [place], [place] | | | | | SURGERY - | [phone] | [address] | | | | | GENERAL | Fax: | Phone: | | | | | | [phone] | [phone] | | | | | | | Fax: | | | | | | | [phone] | +--------+--------+ + + + + Reason [...] | | | ogy | Abdominal | [facility], | [address] | | | | | pain | [place]icky N, | [address] | | | | | abdominal | DAM WORKER [address] | Mailcode: | | | | | pain | [place] | [facility] | | | | | | [place] | [facility] and | | | | | | [address] | Healing, | | | | | | [place], | [address] 2 | | | | | | [place] [address] | [place], [place] | | | | | | Phone: | [address] | | | | | | [phone] | Phone: | | | | | | Fax: | [phone] | | | | | | [phone] | Fax: | | | | | | | [phone] | +--------+--------+ + + + + Encounter Details +--------+---------+ + + + | Date | Type | Department | Care Team | Description | +--------+---------+ + + + | 07/02/ | Office | Digestive Health | Lashawn Joy, | Diabetic | | 2019 | Visit | Center at [facility] [address] | [address] [facility] | gastroparesis (HCC) | | | | Zee Nguyen | [address] | (Primary Dx); | | | | Mailcode: [place] | [place], [place] | Chronic diarrhea | | | | for Health and | [address] | | | | | [facility], [facility] 2 | [phone] | | | | | [place], [place] | | | | | | [address] | | | | | | [phone] | | | +--------+---------+ + + + [...] once the orders have been submitted to [facility]. Please do not hesitate to contact my office via phone or [facility] if you have any questions. Thank you! [...] is reported. SOCIAL HISTORY: Pt lives in [place], [place] with his mother. Not working. Smokes [...] but this may be difficult for t [facility] to afford as it is not covered [...] Lashawn Joy PA-C [facility] AT [address] Mailcode: [place] [address] documented in this encounter Plan [...] [address] | [place] | [phone] | | EUN | | | | [...] [address] | [place] | [phone] | | EUN | | | | [...] - | [address] | [place], [place] | [phone] | | EUN | | | | [...] DI[address]ANTE Card [address] | [place] | [phone] | | EUN | | | | [...] | + + + + + | [employer] | [address] | [place] [address] | | | SERVICES, CORE | ZENA [...] + | [facility] AIRPORT - | [address] | [place] [address] | | | [place] | | | | + + + [...] | | | LABORATORY | | | [place] | | | SERVICES, | | | [...] | + + + + + | [facility] [employer] | [address] [facility] | [place] [address] | | | [address] | ZENA [...] | + + + + + | [facility] | [address] | [place] [address] | | | SERVICES, CORE | ZENA [...]
--- OUTSIDE RECORDS SUMMARY | ~2020-03-21 | XMS | Encounter Summary ---
Demographics + + + | Address | [address] | | | [place] [address] | + + + | Home Phone [...] Samantha Ramos | ECON | [address] # | | | | | [place], [place] | | | | | [address] | | + + + + + Care Team Providers + +------+ + | Care Fraud Investigator Name | Role | Phone | + +------+ + PCP | Unavailable | + +------+ + Encounter Details +--------+ + + + + | Date | Type | Department | Care Team | Description | +--------+ + + + + | 12/02/ | Results | | Emmanuel Zee, | | | 2002 | Only | | [address] | | | | | | [address] | | | | | | [place], [place] | | | | | | [address] | | | | | | [phone] | | | | | | | [...] DEPARTMENT OF | [address] | [place] [address] | | | PATHOLOGY | [address] | | | + + + + + | [facility] DEPARTMENT OF | [address] | [place] [address] | | | PATHOLOGY | [address] [...] + + + + | [facility] | [address] [facility] | [place] [address] | | | PATHOLOGY | [address] | | | + + + + + | [facility] | [address] [facility] | [place] [address] | | | PATHOLOGY | [address] [...] DEPARTMENT OF | [address] | [place] [address] | | | PATHOLOGY | [address] | | | + + + + + | [facility] DEPARTMENT OF | [address] | [place] [address] | | | PATHOLOGY | [address] [...] [place] DEPARTMENT OF | [address] [facility] | [place] [address] | | | PATHOLOGY | [address] | | | + + + + + | [facility] DEPARTMENT OF | [address] [facility] | [place] [address] | | | PATHOLOGY | [address] [...] | + + + + + | [facility] DEPARTMENT OF | [address] | [place] [address] | | | PATHOLOGY | [address] | | | + + + + + | [facility] DEPARTMENT OF | [address] | [place] [address] | | | PATHOLOGY | [address] [...] Performed At | + + + | [id number] CALCIUM Checked and phoned. | [facility] | | | DEPARTMENT OF | | | PATHOLOGY | + + + + + + + + | Performing | Address | City/State/Zipcode | Phone Number | | Organization | | | | + + + + + | [facility] DEPARTMENT OF | [address] | [place] [address] | | | PATHOLOGY | [address] | | | + + + + + | [facility] DEPARTMENT OF | [address] | [place] [address] | | | PATHOLOGY | [address] | | | + + + + + CHEMISTRY MASTER PANEL (12/03/2002 6:00 AM PST) + + | Specimen | + + | | + + + + + | Narrative | Performed At | + + + | [id number] CALCIUM Checked and phoned. | [facility] | | | DEPARTMENT OF | | | PATHOLOGY | + + + + + + + + | Performing | Address | City/State/Zipcode | Phone Number | | Organization | | | | + + + + + | [facility] DEPARTMENT OF | [address] | [place] [address] | | | PATHOLOGY | [address] | | | + + + + + | [facility] DEPARTMENT OF | [address] | [place] [address] | | | PATHOLOGY | [address] [...] DEPARTMENT OF | [address] | [place] [address] | | | PATHOLOGY | [address] | | | + + + + + | [facility] DEPARTMENT OF | [address] | [place] [address] | | | PATHOLOGY | [address] | | | + + + + + MAGNESIUM, PLASMA (12/03/2002 2:20 AM PST) + +-------+ + + + | Component | Value | Ref Range | Performed | Pathologist | | | | | At | Signature | + +-------+ + + + | MAGNESIUM,P | 1.9 | 1.8 - 2.5 mg/dL | [facility] | | | LASMA | | | [...] + + + + | [facility] | [address] | [place] [address] | | | PATHOLOGY | [address] | | | + + + + + | [facility] | [address] | [place] [address] | | | PATHOLOGY | [address] [...] DEPARTMENT OF | [address] | [place] [address] | | | PATHOLOGY | [address] | | | + + + + + | [facility] DEPARTMENT OF | [address] | [place] [address] | | | PATHOLOGY | [address] [...] + + + + | [facility] | [address] [facility] | [place] [address] | | | PATHOLOGY | [address] | | | + + + + + | [facility] | [address] [facility] | [place] [address] | | | PATHOLOGY | [address] [...] | | | | Test performed by [place] | | | | | | [facility] | | | | | | Danii. | | | | + + + + + + + + | Specimen | + + | | + + + + + + + | Performing | Address | City/State/Zipcode | Phone Number | | Organization | | | | + + + + + | [facility] | [address] | [place] [address] | | | LABORATORY | | | [...] | + + + + + | [facility] DEPARTMENT OF | [facility] [address] | [place] [address] | | | PATHOLOGY | [address] | | | + + + + + | [facility] DEPARTMENT OF | [facility] [address] | [place] [address] | | | PATHOLOGY | [address] [...] Performed At | + + + | [id number] Checked and phoned. CO2 [id number] Checked and phoned. | [facility] | | | DEPARTMENT OF | | | PATHOLOGY | + + + + + + + + | Performing | Address | City/State/Zipcode | Phone Number | | Organization | | | | + + + + + | [facility] DEPARTMENT OF | [address] | [place] [address] | | | PATHOLOGY | [address] | | | + + + + + | [facility] DEPARTMENT OF | [address] | [place] [address] | | | PATHOLOGY | [address] [...] Performed At | + + + | [id number] Checked and phoned. CO2 [id number] Checked and phoned. | [facility] | | | DEPARTMENT OF | | | PATHOLOGY | + + + + + + + + | Performing | Address | City/State/Zipcode | Phone Number | | Organization | | | | + + + + + | [facility] DEPARTMENT OF | [address] | [place] [address] | | | PATHOLOGY | [address] | | | + + + + + | [facility] DEPARTMENT OF | [address] | [place] [address] | | | PATHOLOGY | [address] [...] Performed At | + + + | [id number] Checked and phoned. CO2 [id number] Checked and phoned. | [facility] | | | DEPARTMENT OF | | | PATHOLOGY | + + + + + + + + | Performing | Address | City/State/Zipcode | Phone Number | | Organization | | | | + + + + + | [facility] DEPARTMENT OF | [address] [facility] | [place] [address] | | | PATHOLOGY | [address] | | | + + + + + | [facility] DEPARTMENT OF | [address] [facility] | [place] [address] | | | PATHOLOGY | [address] | | | + + + + + CHEMISTRY MASTER PANEL (12/02/2002 6:45 PM PST) + + | Specimen | + + | | + + + + + | Narrative | Performed At | + + + | [id number] Checked and phoned. CO2 [id number] Checked and phoned. | [facility] | | | DEPARTMENT OF | | | PATHOLOGY | + + + + + + + + | Performing | Address | City/State/Zipcode | Phone Number | | Organization | | | | + + + + + | [facility] DEPARTMENT [facility] | [facility] [address] | [place] [address] | | | PATHOLOGY | [address] | | | + + + + + | [facility] DE[facility]MENT [facility] | [facility] [address] | [place] [address] | | | PATHOLOGY | [address] | | | + + + + + documented in this encounter Visit Diagnoses Not on filedocumented in this encounter"
--- OUTSIDE RECORDS SUMMARY | ~2020-03-21 | XMS | Encounter Summary ---
Demographics + + + | Address | [address] | | | [place] [address] | + + + | Home Phone [...] Samantha Ramos | ECON | [address] # | | | | | [place] | | | | | [address] | | + + + + + Care Team Providers + +------+ + | Care Organizational Development Director Name | Role | Phone | [...] [address] | | | | | [place], [place] | [place], [place] | | | | | [address] | [address] | | | | | [phone] | [phone] | | | | | | | [...] | | N, | Test performed by [facility] | | | | | [facility] | [facility] | | | | | M | [facility]. | | | | [...] + + + | [facility] | [address] | [place] [address] | | | LABORATORY | | | | + + + + + documented in this encounter Visit Diagnoses Not on filedocumented in this encounter"
--- OUTSIDE RECORDS SUMMARY | ~2020-03-21 | XMS | Encounter Summary ---
Demographics + + + | Address | [address] | | | [place] [address] | + + + | Home Phone [...] Samantha Ramos | ECON | [address] # | | | | | [place] | | | | | [address] | | + + + + + Care Team Providers + +------+ + | Care Railroad Wheels And Axle Inspector Name | Role | Phone | [...] | Only | [facility] [address] | AIRPORT BAGGAGE SCREENER [address] | | | | | [address] | [address] | | | | | Mailcode: PV430 | [place] [address] | | | | | [facility] | [phone] | | | | | [place], [place] | | | | | | [address] | | | | | | [phone] | | | +--------+ + + + [...]
--- OUTSIDE RECORDS SUMMARY | ~2020-03-21 | XMS | Encounter Summary ---
Demographics + + + | Address | [address] | | | [place] [address] | + + + | Home Phone [...] Samantha Ramos | ECON | [address] # | | | | | [place] | | | | | [address] | | + + + + + Care Team Providers + +------+ + | Care Security Threat Analyst Name | Role | Phone | [...] | | | | Mailcode: Center | [place], [place] | | | | | for Health and | [address] | | | | | [facility] 2 | [phone] | | | | | [place], [place] | | | | | | [address] | | | | | | [phone] | | | +--------+ + + + [...] - | [address] | [place], [place] | [phone] | | [place] | | | | [...] [address] | [place] | [phone] | | [place] | | | | [...] + + | [facility] - | [address] | [place] | [phone] | | [place] | | | | [...] + + | [facility] - | [address] | [place], [place] | [phone] | | [place] | | | | + + + + + documented in this encounter Visit Diagnoses + + | Diagnosis | + + | Chronic diarrhea Diarrhea | + + documented in this encounter"
--- OUTSIDE RECORDS SUMMARY | ~2020-03-21 | XMS | Encounter Summary ---
Demographics + + + | Address | [address] | | | [place] [address] | + + + | Home Phone [...] Samantha Ramos | ECON | [address] # | | | | | [place] | | | | | [address] | | + + + + + Care Team Providers + +------+ + | Care Paint Line Supervisor Name | Role | Phone | [...] | | | Mailcode: Center | [place], [place] | | | | | for Health and | [address] | | | | | [facility] 2 | [phone] | | | | | [place], [place] | | | | | | [address] | | | | | | [phone] | | | +--------+ + + + [...]
--- OUTSIDE RECORDS SUMMARY | ~2020-03-21 | XMS | Encounter Summary ---
Demographics + + + | Address | [address] | | | [place] [address] | + + + | Home Phone [...] + + + + + | Gia Ramso | ECON | [address] | | | | | [address] [place] | | | | | [address] | | + + + + + Care Team Providers + +------+ + | Care Director Counseling Bureau Name | Role | Phone | + [...] + + | 03/06/ | Telephone | [facility] | Anne Neal, | Case Management | | 2019 | | MED CTR CASE | RN | (follow up about | | | | MANAGEMENT [address] | | custom wheelchair) | | | | [place], | | | | | | [place] [address] | | | | | | [phone] | | | +--------+ + + + [...] PT notes in Epic. I called Ruma ([facility] sample case porter) left a message on her office number and her cell number to return my call. I called and left a message with Alin's mother to please return my call. I called and spoke to Ori - [facility] [place]. She states that Nick at the [facility] Office is the contact for the custom wheelchairs. She will have Nick reach out to me. She has talked to Nick and he would like to work with our wheelchair clinic. I am waiting for a call from Nick. I called PCP: Emmanuel Saavedra [phone]- Spoke to his nurse. Requested a referral to [facility] wheelchair clinic. She requested PT notes. Faxed to [phone]. Electronically signed by: Anne Neal RN 03/06/2020 3:39 PM documented in this e ncounter Plan of Treatment +--------+---------+ + + + | Date | Type | Specialty | Care Team | Description | +--------+---------+ + + + | 05/07/ | Office | Nephrology | Winston Whitman MD | | | 2020 | Visit | | [address] [facility] | | | | | | [address] [place] | | | | | | [address] | | | | | | | | +--------+---------+ + + + documented as of this encounter Visit Diagnoses Not on filedocumented in this encounter"
--- OUTSIDE RECORDS SUMMARY | ~2020-03-21 | XMS | Encounter Summary ---
Demographics + + + | Address | [address] | | | [place] [address] | + + + | Home Phone | | + + + | Preferred Language | Unknown | + + + | Marital Status | Single | + + + | Baptist Affiliation | NON | + + + [...] Samantha Ramos | ECON | [address] # | | | | | [place] | | | | | [address] | | + + + + + Care Team Providers + +------+ + | Care Blanchard Grinder Operator Name | Role | Phone | + +------+ + | Erich Yates PA-C | PCP | | + +------+ + Encounter Details +--------+ + + + + | Date | Type | Department | Care Team | Description | +--------+ + + + + | 01/22/ | Abstract | Digestive Health | Neri Steven MD | | | 2020 | | [place] [facility] [address] | [address] | | | | | [address] | [place], | | | | | Mailcode: [place] | [place] [address] | | | | | for Health and | [phone] | | | | | [facility], [facility] 2 | | | | | | [place], [place] | | | | | | [address] | | | | | | [phone] | | | +--------+ + + + [...]
--- OUTSIDE RECORDS SUMMARY | ~2020-03-21 | XMS | Encounter Summary ---
Demographics + + + | Address | [address] | | | [place] [address] | + + + | Home Phone [...] Samantha Ramos | ECON | [address] # | | | | | [place], [place] | | | | | [address] | | + + + + + Care Team Providers + +------+ + | Care Tip Finisher Name | Role | Phone | [...] as of this encounter Progress Notes Interface, Parking Station Attendant In - 04/25/2005 12:43 AM PDT [id number] 09/30/2004 09/30/2003 [id number] NAHOMY Durbin [facility] [address] [place], [place] [id number] or September 30, 2004 Neri Mojica M.D. [address] [place] [address] RE: BROOKS MARQUEZ II MR #: [id number] Dear Dr. Mojica: Diagnoses: 1. Type 1 diabetes. 2. Currently poor control. 3. Poor compliance. I reviewed Brooks Ogden in our Pediatric Endocrinology Clinic for the first time today. Alin is a 13-year 52-czogg-byo boy who was diagnosed with type 1 diabetes in April 2002, presenting with weight loss, polyuria, and polydipsia. Since Brooks was diagnosed, he has been mainly under your care for his diabetes, although he has been seen once at [facility]. His control has generally been very poor, and he has had 3 episodes of diabetic ketoacidosis, the last being in July 2004. At this episode, he was admitted to [facility] with moderate DKA, initial bicarbonate [...] are particularly high. Family and social history: Alni lives with his mother and his new step-father and brother in the [facility]. Though there is strong family history on [...] Normal sensation. Summary: Alin is a 13-year 20-zsyzn-krq boy with very poor diabetes control, secondary [...] or concerns. Yours sincerely, Ashanti Roque M.D. Barber Apprentice of Pediatric Endocrinology / [id number] / [id number] / [id number] / documented i n this encounter Plan of Treatment Not on filedocumented as of this encounter Visit Diagnoses Not on filedocumented in this encounter"
--- OUTSIDE RECORDS SUMMARY | ~2020-03-21 | XMS | Encounter Summary ---
Demographics + + + | Address | [address] | | | [place] [address] | + + + | Home Phone [...] Samantha Ramos | ECON | [address] # | | | | | [place] | | | | | [address] | | + + + + + Care Team Providers + +------+ + | Care Tape Deck Installer Name | Role | Phone | + +------+ + | Erich Yates PA-C | PCP | | + +------+ + Encounter Details +--------+ + + + + | Date | Type | Department | Care Team | Description | +--------+ + + + + | 07/06/ | Transcribe | [facility] | Transcribe | | | 2019 | Orders | [facility] [address] | Encounter, Provider, | | | | | Elliott Nguyen Mailcode: | [address] | | | | | [facility] for | [place] [address] | | | | | Health and Healing, | | | | | | Building [address] | | | | | | [place], [place] | | | | | | [address] | | | | | | [phone] | | | +--------+ + + + [...]
--- OUTSIDE RECORDS SUMMARY | ~2020-03-21 | XMS | Encounter Summary ---
[...] Samantha Ramos | ECON | [address] # | | | | | [place] | | | | | [address] | | + + + + + Care Team Providers + +------+ + | Care Cvt Tech Name | Role | Phone | + +------+ + PCP | Unavailable | + +------+ + Encounter Details +--------+ + + + + | Date | Type | Department | Care Team | Description | +--------+ + + + + | 09/30/ | Office | [facility] | Clinic, Pediatric | Progress Note | | 2005 | Visit-Trans | MOTOR POLARIZER | Endocrinology | | | | cribed [...] as of this encounter Progress Notes Interface, Cancer Researcher In - 04/25/2005 12:43 AM PDT [id number] NAHOMY RAYMOND BR[facility]KS [facility] Date: 09/30/2004 [...] eats. DENISSE Carr, CNSD, LD AT / [id number] / [id number] / [id number] / documented i n this encounter Plan of Treatment Not on filedocumented as of this encounter Visit Diagnoses Not on filedocumented in this encounter"
--- OUTSIDE RECORDS SUMMARY | ~2020-03-21 | XMS | Encounter Summary ---
Demographics + + + | Address | [address] | | | [place] [address] | + + + | Home Phone [...] Samantha Ramos | ECON | [address] # | | | | | [place] | | | | | [address] | | + + + + + Care Team Providers + +------+ + | Care Cinder Crew Worker Name | Role | Phone | [...] | | | type) | CLINIC | [facility] | | | | | diabetes | [address] | Rd | | | | | mellitus | BUILDING | [place], [place] | | | | | without | [address] | [address] | | | | | mention of | [address] | Phone: | | | | | complication | [place], | [phone] | | | | | , not stated | [place] [address] | Fax: | | | | | as | Phone: | [phone] | | | | | uncontrolled | [phone] | | | | | | | Fax: | | | | | | | [phone] | | +--------+ + + + + [...] Dx) | | | | Center [facility] | [facility] | | | | | Pav[address] | [place], [place] | | | | | [address] | [address] | | | | | Physician's | [phone] | | | | | Pavilion[address] | | | | | | [place], [place] | | | | | | [address] | | | | | | [phone] | | | +--------+---------+ + + + [...] week a nd fax to me on [phone]- or call/email earlier if blood sugars running consistently low . My email address is [email or web address] 2. Take 1 unit insulin for [...] 1 week and fax to me on [phone]- or call/email earlier if blood sarabia gars running consistently low. My email address is [email or web address] 2. Take 1 unit insulin for [...] | + + +--------+ + + | AK COLLECTION | Procedures | Routin | DM w/o | Ordered: 11/01/2007 | | CAPILLARY BLOOD | | e | Complication Type I | | | SPECIMEN | | | | | + + +--------+ + + | AK GLYCATED | Lab | Routin | DM [...] VERDE | [address] | [place], [place] | | | [facility] POINT OF CARE | [address] | [address] | | | TESTS | | | | + + + + + | [facility]-POINT [facility] CARE | [address] | [place], [place] | | | TESTS | [address] | [address] | | + + + + + documented in this encounter Visit Diagnoses + + | Diagnosis | + + | Type I (juvenile type) diabetes mellitus without mention of complication, not stated | | as uncontrolled - Primary | + + documented in this encounter
--- OUTSIDE RECORDS SUMMARY | ~2020-03-21 | XMS | Encounter Summary ---
Demographics + + + | Address | [address] | | | [place] [address] | + + + | Home Phone [...] Samantha Ramos | ECON | [address] # | | | | | [place] | | | | | [address] | | + + + + + Care Team Providers + +------+ + | Care Monitoring Tech Name | Role | Phone | [...] | | 2019 | | Center at [facility] [address] | [address] | | | | | [address] Wendy | [place], | | | | | Mailcode: [place] | [place] [address] | | | | | for Health and | [phone] | | | | | [facility], [facility] 2 | | | | | | [place], [place] | | | | | | [address] | | | | | | [phone] | | | +--------+ + + + [...]
--- OUTSIDE RECORDS SUMMARY | ~2020-03-21 | XMS | Encounter Summary ---
Demographics + + + | Address | [address] | | | [place] [address] | + + + | Home Phone [...] Samantha Ramos | ECON | [address] # | | | | | [place] | | | | | [address] | | + + + + + Care Team Providers + +------+ + | Care Vascular Manager Name | Role | Phone | [...] | Only | [facility] [address] | ORACLE SOA DEVELOPER [address] | | | | | [address] | [address] | | | | | Mailcode: PV430 | [place] [address] | | | | | Phys[facility] Pavilion | [phone] | | | | | [place], [place] | | | | | | [address] | | | | | | [phone] | | | +--------+ + + + [...]
--- OUTSIDE RECORDS SUMMARY | ~2020-03-21 | XMS | Encounter Summary ---
Demographics + + + | Address | [address] | | | [place] [address] | + + + | Home Phone [...] Samantha Ramos | ECON | [address] # | | | | | [place] | | | | | [address] | | + + + + + Care Team Providers + +------+ + | Care Vacuum Extractor Operator Name | Role | Phone | [...] as of this encounter Progress Notes Interface, Family Support Coordinator In - 04/25/2005 12:43 AM [facility] [id number] NAHOMY [facility] Date: 09/30/2004 Clinic: [facility]ATR[facility] OUTPATIENT [facility]ABETES CLINIC Subjective: Alin is an almost 14-year-old young boy with type 1 diabetes. The family is new to clinic, here to establish care for his ongoing diabetes management. Alin is usually followed by his primary care doctor, Dr. Mojica in [place]. The family does have several questions and are quite interactive in today's visit. Previous Diabetes Education: Alin was diagnosed with type 1 diabetes on April 2002, at that time, he was admitted to the hospital in [place], [place] where the family did receive initial [...] biohazard container. Again we are strongly encouraging Ailn's mother to observe the morning time routine [...] the football practice. Meal Planning: The pediatric cns Shannon Early did meet with the family [...] also involved in football. 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 I discussed the importance of [...] Diabetes Team. Estefany Hathaway R.N. / CONTRERAS [id number] / [id number] / [id number] / [id number] CDRCP Electronically signed by Estefany Hathaway 10-05-2004 02:25:46 PM documented i n this encounter Plan of Treatment Not on filedocumented as of this encounter Visit Diagnoses Not on filedocumented in this encounter
--- OUTSIDE RECORDS SUMMARY | ~2020-03-21 | XMS | Encounter Summary ---
Demographics + + + | Address | [address] | | | [place] [address] | + + + | Home Phone [...] Samantha Ramos | ECON | [address] # | | | | | [place] | | | | | [address] | | + + + + + Care Team Providers + +------+ + | Care Oil Lease Broker Name | Role | Phone | + [...] | | | | Mailcode: Center | [place], [place] | | | | | for Health and | [address] | | | | | [facility] 2 | [phone] | | | | | [place], [place] | | | | | | [address] | | | | | | [phone] | | | +--------+ + + + [...]
--- OUTSIDE RECORDS SUMMARY | ~2020-03-21 | XMS | Encounter Summary ---
Demographics + + + | Address | [address] | | | [place] [address] | + + + | Home Phone [...] Samantha Ramos | ECON | [address] # | | | | | [place] | | | | | [address] | | + + + + + Care Team Providers + +------+ + | Care Guidance Services Coordinator Name | Role | Phone [...] Rd | | | | | [place] | [place], [place] | | | | | [address] | [address] | | | | | [phone] | [phone] | | | | | | | [...] | + + + + + | [facility] | [address] | [place] [address] | | | PATHOLOGY | [address] | | | + + + + + | [facility] | [address] | [place] [address] | | | PATHOLOGY | [address] | | | + + + + + documented in this encounter Visit Diagnoses Not on filedocumented in this encounter"
--- OUTSIDE RECORDS SUMMARY | ~2020-03-21 | XMS | Encounter Summary ---
Demographics + + + | Address | [address] | | | [place] [address] | + + + | Home Phone [...] Samantha Ramos | ECON | [address] # | | | | | [place] | | | | | [address] | | + + + + + Care Team Providers + +------+ + | Care Marine Engine Mechanic Name | Role | Phone | [...] | | | | | | | [facility] | | | | | | | [facility] and | | | | | | | Healing, | | | | | | | Building [address] | | | | | | | [place], [place] | | | | | | | [address] | | | | | | | Phone: | | | | | | | [phone] | | | | | | | Fax: | | | | | | | [phone] | + +--------+ + + + + Encounter Details +--------+ + + + + | Date | Type | Department | Care Team | Description | +--------+ + + + + | 01/24/ | Telephone-S | Digestive Health | Beth Mondragon, | Follow-up visit | | 2020 | cheduled | Center at [facility] 3485 | ANP [address] [facility] | | | | | Zee Nguyen | [address] | | | | | Mailcode: [place] | [place], [place] | | | | | [facility] and | [address] | | | | | [facility] 2 | [phone] | | | | | [place], [place] | | | | | | [address] | | | | | | [phone] | | | +--------+ + + + [...] 07/2019 PDMP review reveals pt still taking Randolph 10 mg tabs, rx #112/28 days 1:33 pm: called [phone] and left VM with clinic phone number. 1:38 pm: called [phone] and left VM w/ phone number. 1:41 pm received message from front office director that patient wished to cancel appointment today 2/ 2 illness. It will be rescheduled at his convenience. IDRIS Camilo Foregut/ HIPEC RESEARCH ANALYST [facility] Division of GI and General Surgery documented in this encounter Plan of Treatment Not on filedocumented as of this encounter Visit Diagnoses + + | Diagnosis | + + | Diabetic gastroparesis associated with type 1 diabetes mellitus (HCC) - Primary | + + documented in this encounter"
--- OUTSIDE RECORDS SUMMARY | ~2020-03-21 | XMS | Encounter Summary ---
Demographics + + + | Address | [address] | | | [place] [address] | + + + | Home Phone [...] Samantha Ramos | ECON | [address] # | | | | | [place] | | | | | [address] | | + + + + + Care Team Providers + +------+ + | Care Funeral Location Manager Name | Role | Phone | [...] | 2019 | | Center at [facility] 3485 | PA-C [address] [facility] | results | | | | [address] | [address] | | | | | Mailcode: Center | [place], [place] | | | | | [facility] and | [address] | | | | | [facility], [facility] 2 | [phone] | | | | | [place], [place] | | | | | | [address] | | | | | | [phone] | | | +--------+ + + + [...]
--- OUTSIDE RECORDS SUMMARY | ~2020-03-21 | XMS | Encounter Summary ---
Demographics + + + | Address | [address] | | | [place] [address] | + + + | Home Phone [...] Samantha Ramos | ECON | [address] # | | | | | [place] | | | | | [address] | | + + + + + Care Team Providers + +------+ + | Care Assistant Surveyor Name | Role | Phone | + +------+ + | Neri Mojica MD | PCP | | + +------+ + Encounter Details +--------+ + + + + | Date | Type | Department | Care Team | Description | +--------+ + + + + | 07/16/ | Documentati | Orthopaedics at | Neri Mcgarry, | | | 2005 | on | [address] | [address] | | | | | [address] | [address] | | | | | Mailcode: PV430 | [facility] [place] | | | | | [facility] | [address] | | | | | [place], [place] | [phone] | | | | | [address] | | | | | | [phone] | | | +--------+ + + + [...]
--- OUTSIDE RECORDS SUMMARY | ~2020-03-21 | XMS | Encounter Summary ---
Demographics + + + | Address | [address] | | | [place] [address] | + + + | Home Phone [...] Samantha Ramos | ECON | [address] # | | | | | [place], [place] | | | | | [address] | | + + + + + Care Team Providers + +------+ + | Care Licensed Funeral Director And Embalmer Name | Role | Phone | + [...] as of this encounter Progress Notes Interface, Insurance Representative In - 04/25/2005 12:43 AM [facility] [id number] NAHOMY Dr[facility] Date: 09/30/2004 Clinic: PEDIATRIC OUTPATIENT DIABETES CLINIC Subjective: Alin is an almost 14-year-old young boy with type 1 diabetes. The family is new to clinic, here to establish care for his ongoing diabetes management. Alin is usually followed by his primary care doctor, Dr. Mojica in [place]. The family does have several questions and are quite interactive in today's visit. Previous Diabetes Education: Alin was diagnosed with type 1 diabetes on April 2002, at that time, he was admitted to the hospital in [place], [place] where the family did receive initial [...] blood sugar back up to above 80. Alni states that he does have identification; however, he is not wearing it at today's visit. The family does have the glucagon emergency kit, one is at home. They have one at school and then when he is involved in football, there is one that is brought to the football practice. Meal Planning: The generation engineer Shannon Early did meet with the family [...] also involved in football. 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 I discussed the importance [...] family's first visit here to the [facility]. The family is [...] Diabetes Team. Estefany Hathaway R.N. / CONTRERAS [id number] / [id number] / [id number] / [id number] CDRCP Electronically signed by Estefany Hathaway 10-05-2004 02:25:46 PM documented i n this encounter Plan of Treatment Not on filedocumented as of this encounter Visit Diagnoses Not on filedocumented in this encounter
--- OUTSIDE RECORDS SUMMARY | ~2020-03-21 | XMS | Encounter Summary ---
Demographics + + + | Address | [address] | | | [place] [address] | + + + | Home Phone [...] Samantha Ramos | ECON | [address] # | | | | | [place] | | | | | [address] | | + + + + + Care Team Providers + +------+ + | Care Brush Sander Name | Role | Phone | [...] evaluation | | 2020 | cheduled | [facility] at | | | | | | [facility] | | | | | | [address] | | | | | | Mail Code: OC8PM | | | | | | [facility] | | | | | | and Healing, | | | | | | Building 2 | | | | | | [place], [place] | | | | | | [address] | | | | | | [phone] | | | +--------+ + + + [...] INSTRUCTIONS Eating/Drinking Instructions: Follow instructions provided by [facility] Endoscopy. You should have received these instruction s by mail or email. If you have not received them, contact Endoscopy at [phone]. General Medications Instructions Oral iron: If you [...] Procedure check-in location: Day Stay Unit - [facility], 4th floor Room 4519 Procedure Check in [...] ch as Uber/Lyft), or public transportation. An Uber/Lyft/seasonal driver does not count as the r [...] it is after office hours, call the [facility] sawmill equipment operator at [phone] and ask them to page the on-c all GI provider. Your surgical team will decide when you are medically ready to go home. documented in this encounter Plan of Treatment Not on filedocumented as of this encounter Visit Diagnoses Not on filedocumented in this encounter"
--- OUTSIDE RECORDS SUMMARY | ~2020-03-21 | XMS | Encounter Summary ---
Demographics + + + | Address | [address] | | | [place] [address] | + + + | Home Phone [...] Samantha Ramos | ECON | [address] # | | | | | [place] | | | | | [address] | | + + + + + Care Team Providers + +------+ + | Care Microfilm Duplicating Unit Supervisor Name | Role | Phone | [...] | Only | [address]REET CLEANING EQUIPMENT OPERATOR [address] | | | | | [address] | [address] | | | | | Mailcode: PV430 | [place] [address] | | | | | [facility] | [phone] | | | | | [place], [place] | | | | | | [address] | | | | | | [phone] | | | +--------+ + + + [...]
--- OUTSIDE RECORDS SUMMARY | ~2020-03-21 | XMS | Encounter Summary ---
Demographics + + + | Address | [address] | | | [place] [address] | + + + | Home Phone [...] Samantha Ramos | ECON | [address] # | | | | | [place] | | | | | [address] | | + + + + + Care Team Providers + +------+ + | Care Deaf And Hard Of Hearing Teacher Name | Role | Phone | [...] | | | | | [place] | [facility] [address] | | | | | | CLINIC | [place] | | | | | | FIFI | [place]ika | | | | | | BUILDING | [place], [place] | | | | | | [address] | [address] | | | | | | [address] | Phone: | | | | | | [place], | [phone] | | | | | | [place] [address] | Fax: | | | | | | Phone: | [phone] | | | | | | [phone] | | | | | | | Fax: | | | | | | | [phone] | | +--------+--------+ + + + + [...] | | | | [facility] | [place], [place] | | | | | [address] | [address] | | | | | [place] | [phone] | | | | | [place], [place] | | | | | | [address] | | | | | | [phone] | | | +--------+ + + + [...] as of this encounter Progress Notes Interface, Plater Helper In - 12/15/2006 6:28 AM JOHNNY [id number] NAHOMY Durbin [id number] Clinic Date: 11/02/2006 Clinic: Pediatric Endocrinology Problem [...] regimen as necessary. Ashanti Roque M.D. / [id number] / [id number] / 67314 / [id number] cc: Neri Mojica M.D. [address] [facility] [address] [place], [place] MedRecNo: [id number], Account: [id number], DocSeq: [id number] Addendum December 09 2006 Alin's random urine [...] VERDE | [address] | [place], [place] | | | SATNAM POINT OF CARE | [facility] | [address] | | | TESTS | | | | + + + + + | OHASA-POINT OF CARE | [address] | [place], [place] | | | TESTS | [facility] | [address] | | + + + + + documented in this encounter Visit Diagnoses Not on filedocumented in this encounter"
--- OUTSIDE RECORDS SUMMARY | ~2020-03-21 | XMS | Encounter Summary ---
Demographics + + + | Address | [address] | | | [place] [address] | + + + | Home Phone [...] Samantha Ramos | ECON | [address] # | | | | | [place] | | | | | [address] | | + + + + + Care Team Providers + +------+ + | Care Sewer And Cutter Finger Buff Material Name | Role | Phone | + +------+ + | Neri Mojica MD | PCP | | + +------+ + Encounter Details +--------+ + + + + | Date | Type | Department | Care Team | Description | +--------+ + + + + | 08/24/ | Document-Sc | UNKNOWN DEPARTMENT | Other, Faculty | | | 2012 | anned | [address] [facility] | [phone] | | | | | [address] | | | | | | [place], [place] | | | | | | [address] | | | +--------+ + + + [...]
--- OUTSIDE RECORDS SUMMARY | ~2020-03-21 | XMS | Encounter Summary ---
Demographics + + + | Address | [address] | | | [place] [address] | + + + | Home Phone [...] [place] | | | | | [address] | | + + + + + Care Team Providers + +------+ + | Care Telephone Ad Taker Name | Role | Phone | + [...] + + | 07/03/ | Telephone | [facility] | [facility], | Care Plan | | 2019 | | GASTROENTEROLOGY | [address] | | | | | [address] | [address] | | | | | [address] [place] | [place] | | | | | [address] | [address] | | | | | [phone] | | | +--------+ + + + [...] - 07/03/2019 11:00 AM Samantha Joy from [facility] called regarding this patient. She is asking [...] for gastroparesis. Her phone num roland is [phone]. Spoke with Arlet and called Lashawn back [...] 2020 | Visit | | [address] [facility] | | | | | | [address] [place], [place] | | | | | | [address] | | | | | | | | +--------+---------+ + + + documented as of this encounter Visit Diagnoses Not on filedocumented in this encounter"
--- OUTSIDE RECORDS SUMMARY | ~2020-03-21 | XMS | Encounter Summary ---
Demographics + + + | Address | [address] | | | [place] [address] | + + + | Home Phone [...] Samantha Ramos | ECON | [address] # | | | | | [place] | | | | | [address] | | + + + + + Care Team Providers + +------+ + | Care Employment Manager Name | Role | Phone | [...] bone and | [address] | [address] [place], | | | | | articular | [place], [place] | [place] | | | | | cartilage | [address] | [address] | | | | | Loose body | Phone: | Phone: | | | | | in upper arm | [phone] | [phone] | | | | | joint | Fax: | Fax: | | | | | Procedures | [phone] | [phone] | | | | | CONSULT TO | | | | | | | [place] ID | | | | | | | EXPLORE | | | | | | | ELBOW JOINT | | | | | | | ID BONE | | | | | | [...] | | | | Mailcode: [id number] | [place], [place] | Uncertain Behavior | | | | [facility] | [address] | of Bone and | | | | [place], [place] | [phone] | Articular Cartilage | | | | [address] | | | | | | [phone] | | | +--------+---------+ + + + [...] Codeine Social history: The patient lives in [place], [place]. The patient smokes half a pack [...]
--- OUTSIDE RECORDS SUMMARY | ~2020-03-21 | XMS | Encounter Summary ---
Demographics + + + | Address | [address] | | | [place] [address] | + + + | Home Phone [...] [place] | | | | | [address] | | + + + + + Care Team Providers + +------+ + | Care Vamp Maker Name | Role | Phone | [...] + + | 02/27/ | Documentati | [facility] | Marks, | Results (02/27/20) | | 2020 | on | NEPHROLOGY [place] | Alonzo Campos | | | | | [address] | Computer Recycling Worker | | | | | [address] [place] | | | | | | [address] | | | | | | [phone] | | | +--------+ + + + [...] 2019 | Visit | | [address] [facility] | | | | | | [address] [place] | | | | | | [address] | | | | | | | [...] 1.001 - 1.030 | | | | [place], | | | | | | Urine [...]
--- OUTSIDE RECORDS SUMMARY | ~2020-03-21 | XMS | Encounter Summary ---
Demographics + + + | Address | [address] | | | [place] [address] | + + + | Home Phone [...] Samantha Ramos | ECON | [address] # | | | | | [place] | | | | | [address] | | + + + + + Care Team Providers + +------+ + | Care Contract Negotiator Name | Role | Phone | + +------+ + PCP | Unavailable | + +------+ + Encounter Details +--------+ + + + + | Date | Type | Department | Care Team | Description | +--------+ + + + + | 08/27/ | Office | [facility] | Clinic, Pediatric | Progress Note | | 2005 | Visit-Trans | [place] | Endocrinology | | | | cribed [...] as of this encounter Progress Notes Interface, Managed Services Consultant In - 10/18/2005 10:01 PM PST [id number] MARQUEZ RAYMOND BROOKS [facility] Date: 08/27/2005 [...] the school week, his father lives in [place], and apparently the school is better and [...] was 56. Diet: Brooks is on a ndzzggbydwvt-lw-nojapyv ratio. He has had dietary education about [...] sites. Assessment: Brooks is a 14-year and 54-mxtgy-vtk boy with type 1 diabetes, who has poor control although it is somewhat improved from previously. He is relatively noncompliant with his diabetes. I have made the following recommendations: 1. I have asked the family to review carbohydrate counting with our core java engineer today. 2. I have recommended to Brooks [...] in 4 months' time. Ashanti Roque M.D. Electronic Device Monitor Pediatric Endocrinology / [id number] / [id number] / [id number] / [id number] cc: Neri Mojica [address] [facility] [place] [address]. Electronically signed by Ashanti Roque 09-10-2005 04:52:54 PM documented i n this encounter Plan of Treatment Not on filedocumented as of this encounter Visit Diagnoses Not on filedocumented in this encounter"
--- OUTSIDE RECORDS SUMMARY | ~2020-03-21 | XMS | Encounter Summary ---
Demographics + + + | Address | [address] | | | [place] [address] | + + + | Home Phone [...] Samantha Ramos | ECON | [address] # | | | | | [place], [place] | | | | | [address] | | + + + + + Care Team Providers + +------+ + | Care Bowling Ball Molder Name | Role | Phone | [...] as of this encounter Progress Notes Interface, Software Quality Assurance Analyst In - 04/25/2005 12:43 AM PDT [id number] 09/30/2004 09/30/2003 [id number] NAHOMY Durbin [facility] [address] [place], [place] [id number] or September 30, 2004 Neri Mojica M.D. [address] [facility] [place] [address] RE: BROOKS MARQUEZ II MR #: [id number] Dear Dr. Mojica: Diagnoses: 1. Type 1 diabetes. 2. Currently poor control. 3. Poor compliance. I reviewed Brooks Ogden in our Pediatric Endocrinology Clinic for the first time today. Alin is a 13-year 99-fsafg-dnu boy who was diagnosed with type 1 diabetes in April 2002, presenting with weight loss, polyuria, and polydipsia. Since Brooks was diagnosed, he has been mainly under your care for his diabetes, although he has been seen once at [facility]. His control has generally been very poor, and he has had 3 episodes of diabetic ketoacidosis, the last being in July 2004. At this episode, he was admitted to [facility] with moderate DKA, initial bicarbonate of [...] his new step-father and brother in the [facility]. Though there is strong family [...] Normal sensation. Summary: Alin is a 13-year 51-ghtzm-qmv boy with very poor diabetes control, secondary [...] or concerns. Yours sincerely, Ashanti Roque M.D. Disc Pad Grinding Machine Feeder of Pediatric Endocrinology / [id number] / [id number] / [id number] / documented i n this encounter Plan of Treatment Not on filedocumented as of this encounter Visit Diagnoses Not on filedocumented in this encounter"
--- OUTSIDE RECORDS SUMMARY | ~2020-03-21 | XMS | Encounter Summary ---
Demographics + + + | Address | [address] | | | [place] [address] | + + + | Home Phone [...] Samantha Ramos | ECON | [address] # | | | | | [place] | | | | | [address] | | + + + + + Care Team Providers + +------+ + | Care Travel Director Name | Role | Phone | [...] | Procedural Unit at | MD Jerome [address] | | | | | [address] | [facility] | | | | | [address] | [place], [place] | | | | | [address], | [address] | | | | | 4th floor [place], | [phone] | | | | | [place] [address] | | | | | | [phone] | | | +--------+ + + + [...]
--- OUTSIDE RECORDS SUMMARY | ~2020-03-21 | XMS | Encounter Summary ---
Demographics + + + | Address | [address] | | | [place] [address] | + + + | Home Phone [...] Samantha Ramos | ECON | [address] # | | | | | [place] | | | | | [address] | | + + + + + Care Team Providers + +------+ + | Care Cloth Roll Winder Name | Role | Phone | [...] | Only | [address] | PART TIME [address] | | | | | [address] | [address] | | | | | Mailcode: [id number] | [place] [address] | | | | | [facility] | [phone] | | | | | [place], [place] | | | | | | [address] | | | | | | [phone] | | | +--------+ + + + [...]
--- OUTSIDE RECORDS SUMMARY | ~2020-03-21 | XMS | Encounter Summary ---
Demographics + + + | Address | [address] | | | [place] [address] | + + + | Home Phone [...] [place] | | | | | [address] | | + + + + + Care Team Providers + +------+ + | Care Microsoft Net Developer Name | Role | Phone | [...] + + | 03/13/ | Telephone | [facility] | [facility], | [facility] | | 2019 | | GASTROENTEROLOGY | DANA [address] | | | | | [address] | [address] | | | | | [address] [place], [place] | [place], [place] | | | | | [address] | [address] | | | | | [phone] | | | +--------+ + + + [...] he said she wasn't happy with [facility] from speaking with them on the phone. She also s aid this would be like starting from the beginning and they would have to have a consult bef ore anything else would be done, told her that the same thing would happen with [facility]. Told h er that we don't usually send patient's to GI specialist in [place], and [employer] does not cover G I in [place]. Suggested she call her insurance and see if they have a GI specialist that would be covered other than at [facility]. But explained it would be the same thing as starting over [facility]. Told her that since everything is [...] a mistake that we referred patient to [facility], kristina Nice said she was going to refer patient to [facility]; The mother added a side note that jigna jeffrey has lost another 5 pounds so this is becoming urgent she says, and also that she WILL NOT take her son to [facility]. Patient than called back and said she had some answers as to why [facility] was not in the questi on and she said that [facility] will not accept her son because he is more than 90 miles away so t hat because of the demographic of the scenario they won't accept him as a new patient. . So she believes that Arlet mentioned a GI specialist in [place] but she can't remember who it was. [...] | | | | | | [address] | | | | | | [address] | | | | | | | | +--------+---------+ + + + documented as of this encounter Visit Diagnoses Not on filedocumented in this encounter"
--- OUTSIDE RECORDS SUMMARY | ~2020-03-21 | XMS | Encounter Summary ---
Demographics + + + | Address | [address] | | | [place] [address] | + + + | Home Phone [...] Samantha Ramos | ECON | [address] # | | | | | [place] | | | | | [address] | | + + + + + Care Team Providers + +------+ + | Care Analytical Scientist Name | Role | Phone | [...] | | 2020 | | Center at [facility] [address] | [address] | | | | | [address] | [place], | | | | | Mailcode: [place] | [place] [address] | | | | | for Health and | [phone] | | | | | [facility] 2 | | | | | | [place], [place] | | | | | | [address] | | | | | | [phone] | | | +--------+ + + + [...]
--- OUTSIDE RECORDS SUMMARY | ~2020-03-21 | XMS | Encounter Summary ---
Demographics + + + | Address | [address] | | | [place] [address] | + + + | Home Phone [...] Samantha Ramos | ECON | [address] # | | | | | [place] | | | | | [address] | | + + + + + Care Team Providers + +------+ + | Care Lawn Sprinkler Installer Name | Role | Phone | [...] Pharmacy | | | | | | [address] | | | | | | [place], [place] | | | | | | [address] | | | | | | [phone] | | | +--------+ + + + [...]
--- OUTSIDE RECORDS SUMMARY | ~2020-03-21 | XMS | Encounter Summary ---
Demographics + + + | Address | [address] | | | [place] [address] | + + + | Home Phone [...] Samantha Ramos | ECON | [address] # | | | | | [place] | | | | | [address] | | + + + + + Care Team Providers + +------+ + | Care Bookseamer Blindstitch Name | Role | Phone | + [...] | | | with type 1 | [phone] | 140 | | | | | diabetes | Phone: | [place], [place] | | | | | mellitus | [phone] | [address] | | | | | ([facility]) Type | Fax: | Phone: | | | | | 1 diabetes | [phone] | [phone] | | | | | mellitus | | Fax: | | | | | with | | [phone] | | | | | hyperglycemi | | | | | | | a ([facility]) | | | [...] | | | | | hyperglycemi | [facility], [place] | PPV05 | | | | | a ([facility]) | [address] | Physician's | | | | | Procedures | Phone: | Zeniachadwick Amarilis | | | | | CONSULT TO | [phone] | 140 | | | | | ADULT | Fax: | [place], [place] | | | | | DIABETES - | [phone] | [phone] | | | | | EDUCATION | | Phone: | | | | | (DIABETES | | [phone] | | | | | SELF-MANAGEM | | Fax: | | | | | ENT) | | [phone] | +--------+--------+ + + + + Reason [...] + | 08/25/ | Hospital | [facility] [address] | [address] | | | 2015 - | Encounter | Nathalia Bernardo MD [address] | | | | | 14C [facility] | [address] | | | 08/27/ | | [place], [place] | [place], [place] | | | 2014 | | [address] | [address] | | | | | [phone] | [phone] | | | | | | | | | | | | Harris Martínez MD | | | | | | Chrissie | | | | | | [facility] | | | | | | Center [address] | | | | | | [address] [place], | | | | | | [place] [address] | | | | | | [phone] | | | | | | | | | | | | Jeff Diggs, | | | | | | ,MPH [address] | | | | | | [facility] [address] | | | | | | [place], [place] | | | | | | [address] | | | | | | [phone] | | | | | | | | | | | | Eunice Parada, | | | | | | [address] | | | | | | [address] | | | | | | [place], [place] | | | | | | [address] | | | | | | [phone] | | | | | | | [...] Procedures 1. Gastric emptying study Consulting Services: Roll Press Operator Reason For Admission: Diabetic ketoacidosis. Hyperglycemia, [...] y and diabetes education here at [facility] which were completed. He was counseled on how to rotat e sites for his insulin injections. - Continue glargine 15 units daily + lispro 1 unit per 15 g carb - Outpatient referral to endocrinology and rn diabetes educator - Will need outpatient follow up [...] post-hospitalization follow-up; Appt at 740am Contact information [facility] [address] [facility] [place] [address] Follow up with [facility] 1st Floor. Specialty: Endocrinology, Diabetes & Metabolism Why: To establish care; follow up on referral to endocrinology if you do not hear back fr om them in 1 week Contact information [address] [facility] Physicians [place] [address] Physicians [facility] [address] Additional information: [facility], 1st floor [address] [place], [place] [id number] [facility] the building just past [facility]. Turn right immediately past the Pavilion. The entrance to [facility] will be on your right just beyond the main doors to the Pavili. An elevator in e parking garage will take patients directly to the floor of the clinic. The [facility] is located on the 1st floor. Please check in at the front office help. M aps and directions can be found at: [email or web address] Other Discharge Orders and Instructions It was a pleasure taking care of you while you were here at [facility] 1) Take all your medications as prescribed especially your insulin and blood pressure medic ations 2) Follow up with your PCP Dr. Pascual on 09/02 at 740am. 3) Make sure to rotate location of where you inject your insulins and keep close track of y our blood sugars 4) We will make referral to [facility] endocrinology but please follow up with us [...] ER for evaluation. Referrals placed to [facility] endocrinology and rn diabetes educator This note was routed to patient's PCP in [place]. EUNICE PARADA MD Pager - [phone] Ct Technologistpasta maker Clinical and Medicine [facility] Services [facility] I spent 45 minutes coordinating care for this patient's discharge, of which 30 minutes were spent [id number] with the patient as well as with [...] about new lisinopril. Diabetes education provided by visual educator RNLiz. Pt reports he has all [...] is stating desire to establish with an Guitar Instructor. Has not hooper d an jet pilot since "Dr Roque" during pediatric years at [...] States willingness to come back to [facility] for endocrinology care, lives in [facility]. Hypoglycemia: reports 1-2 occurrences per week, [...] steven. Pt expresses interest in establishing with jet pilot here at [facility], and is willing to review/discuss further insulin pumps with endocrinology team. Informed pt that insulin pump does not take away the work (still need to check BG levels an d count carbs and give bolus doses) Recommendations 1. Encourage pt to attend support group 2. Encourage improving DM self management and care 3. Refer to [facility] diabetes center for endocrinology care 4. Refer to rn diabetes educator in diabetes center for updating carb [...] LD, RN, CDE Inpatient Diabetes Education Pager: [phone] Eunice Rich MD - 08/26/2015 9:03 AM PST Internal Medicine Clinical Hospitalist Service Progress Note ID/CC: Brooks Marquez (Keith) is a 24 year old man with poorly controlled type 1 diabetes trent litus (HgbA1c in 06/2015 of 12.5%) here with diabetic ketoacidosis in setting of impaired in sulin absorption due to subcutaneous scar tissue with concurrent lactic acidosis (now [facility] ed), no clear infectious etiology for [...] full code EUNICE PARADA MD Pager - [phone] Ct Technologistpasta maker Clinical and Medicine Teaching Hospitalist Services [facility] I spent 40 minutes [id number] with the patient as well as with [...] + + documented in this encounter Results [facility] GASTRIC EMPTYING STUDY (08/27/2015 2:13 PM PST) [...] VERDE | [address] | [place], [place] | | | TANJA HAY OF ANNA | [facility] | [address] | | | TESTS | | | [...] MARQUAM | [address] | [place], [place] | | | TANJA HAY OF ANNA | [facility] | [address] | | | TESTS | | | [...] | 60 - 99 mg/dL | [facility] - | | | GLUCOSE, | | [...] + + + | VERITO VERDE | [address] | [place], [place] | | | SATNAM SCHURZ OF [facility] | [address] | [address] | | | TESTS | | | [...] + + + + + | [facility] | [address] | [place] [address] | | | SERVICES, CORE | ZENA [...] 97 | 60 - 99 mg/dL | [facility] - | | | GLUCOSE, | | [...] VERDE | [address] | [place], [place] | | | TANJA HAY OF CARE | [address] | [address] | | | TESTS | | | [...] AMMON | [address] | [place], [place] | | | TANJA HAY OF ANNA | [address] | [address] | | | TESTS | | | [...] - AMMON | [address] | [place], [place] | | | TANJA HAY OF CARE | [facility] | [address] | | | TESTS | | | [...] VERDE | [address] | [place], [place] | | | TANJA HAY OF CARE | [facility] | [address] | | | TESTS | | | [...] AMMON | [address] | [place], [place] | | | TANJA HAY OF ANNA | [address] | [address] | | | TESTS | | | [...] - AMMON | [address] | [place], [place] | | | TANJA HAY OF CARE | [facility] | [address] | | | TESTS | | | [...] | 60 - 99 mg/dL | [facility] - | | | GLUCOSE, | | [...] VERDE | [address] | [place], [place] | | | TANJA HAY OF [facility] | [address] | [address] | | | TESTS | | | [...] AMMON | [address] | [place], [place] | | | TANJA HAY OF ANNA | [address] | [address] | | | TESTS | | | [...] - AMMON | [address] | [place], [place] | | | TANJA HAY OF CARE | [facility] | [address] | | | TESTS | | | [...] | 60 - 99 mg/dL | [facility] - | | | GLUCOSE, | | [...] VERDE | [address] | [place], [place] | | | TANJA HAY OF [facility] | [facility] | [address] | | | TESTS | | | [...] AMMON | [address] | [place], [place] | | | TANJA HAY OF ANNA | [address] | [address] | | | TESTS | | | [...] | + + + + + | [facility] | [address] | [place] [address] | | | SERVICES, CORE | ZENA [...] MARQUAM | [address] | [place], [place] | | | SATNAM POINT OF CARE | [address] | [address] | | | TESTS | | | [...] AMMON | [address] | [place], [place] | | | TANJA HAY OF CARE | [address] | [address] | | | TESTS | | | [...] | 60 - 99 mg/dL | [facility] - | | | GLUCOSE, | | [...] + + + + + | VERITO VREDE | [address] | [place], [place] | | | TANJA HAY OF ANNA | [address] | [address] | | | TESTS | | | [...] MARQUAM | [address] | [place], [place] | | | SATNAM POINT OF CARE | [address] | [address] | | | TESTS | | | [...] AVELINAAM | [address] | [place], [place] | | | TANJA HAY OF CARE | [address] | [address] | | | TESTS | | | [...] VERDE | [address] | [place], [place] | | | TANJA HAY OF ANNA | [address] | [address] | | | TESTS | | | [...] MARQUAM | [address] | [place], [place] | | | SATNAM POINT OF CARE | [address] | [address] | | | TESTS | | | [...] VERDE | [address] | [place], [place] | | | SQUIRE SCHURZ OF [facility] | [address] | [address] | | | TESTS | | | [...] the MDRD equation recommended by the | [facility] | | National Kidney Disease Education Program. [...] [facility] | [address] | [place] [address] | | | SERVICES, CORE | PARK [...] [facility] | [address] | [place] [address] | | | ZOEY DODD | ZENA [...] MARQUAM | [address] | [place], [place] | | | TANJA HAY OF CARE | [facility] | [address] | | | TESTS | | | [...] VERDE | [address] | [place], [place] | | | TANJA HAY OF CARE | [address] | [address] | | | TESTS | | | [...] | | | POC | | | TANAJ HAY | | | | | | [...] MARQUAM | [address] | [place], [place] | | | TANJA HAY OF ANNA | [address] | [address] | | | TESTS | | | [...] AMMON | [address] | [place], [place] | | | SATNAM POINT OF [facility] | [address] | [address] | | | TESTS | | | [...] activity: 50-100 | | | mg/dLDepression of WIC SITE COORDINATOR: >100 mg/dLFatalities reported: >400 mg/dL | | | Acetone, Methanol and Isopropanol:<5 mg/dL: Reported as Not | | | Detected<10 mg/dL but >5 mg/dL: Reported as <10 mg/dL>10 mg/dL: | | | Reported as measured numeric value Test performed by: [facility] | | | Laboratories [address] [address] | | |<5 mg/dL: Reported as Not Detected | | |<10 mg/dL but >5 mg/dL: Reported as <10 mg/dL | | |>10 mg/dL: Reported as measured numeric value | | | | | |Test performed by: | | |[facility] | | |[address] | | |[place] [address] | | + + + + + [...] VERDE | [address] | [place], [place] | | | TANJA HAY OF ANNA | [facility] | [address] | | | TESTS | | | [...] [facility] | [address] | [place] [address] | | | SERVICES, CORE | PARK [...] the MDRD equation recommended by the | [facility] | | National Kidney Disease Education Program. [...] [facility] | [address] | [place] [address] | | | SERVICES, CORE | PARK [...] + + + + + | [facility] | [address] | [place] [address] | | | SERVICES, CORE | ZENA [...] MARQUAM | [address] | [place], [place] | | | TANJA HAY OF CARE | [address] | [address] | | | TESTS | | | [...] VERDE | [address] | [place], [place] | | | SATNAM POINT OF CARE | [address] | [address] | | | TESTS | | | [...] MARQUAM | [address] | [place], [place] | | | SATNAM POINT OF CARE | [address] | [address] | | | TESTS | | | [...] MARQUAM | [address] | [place], [place] | | | TANJA HAY OF ANNA | [facility] | [address] | | | TESTS | | | [...] VERDE | [address] | [place], [place] | | | SATNAM POINT OF CARE | [address] | [address] | | | TESTS | | | [...] | + + + + + | [facility] | [address] | [place] [address] | | | SERVICES, CORE | ZENA [...] + + + + + | [facility] | [address] | [place] [address] | | | SERVICES, CORE | PARK [...] | + + + + + | [facility] | [address] | [place] [address] | | | SERVICES, CORE | ZENA [...] 24 | 22 - 29 mmol/L | [facility] - | | | | | | MARARTEMIO | | | | | | TANJA HAY | | | | | | OF CARE | | | | | | TESTS | | + + + + + + | GLUCOSE, | >700 (AA) | 60 - 99 mg/dL | [facility] - | | | POC | | | MARQUAM | | | | | | TANJA HAY | | | | | | OF CARE | | | | | | TESTS | | + + + + + + | BUN, POC | 18 | 6 - 20 mg/dL | [facility] - | | | | | | [...] AMMON | [address] | [place], [place] | | | TANJA HAY OF CARE | [address] | [address] | | | TESTS | | | [...] AMMON | [address] | [place], [place] | | | TANJA HAY OF ANNA | [address] | [address] | | | TESTS | | | [...] + + | [facility] | [address] | [place], [place] | | | CARDIOLOGY | [address] | [address] | | + + + + + RAINBOW HOLD TUBE - RED TOP (08/25/2015 9:33 PM PST) + + | Specimen | + + | Blood - Blood | | (substance) | + + + + + + + | Performing | Address | City/State/Zipcode | Phone Number | | Organization | | | | + + + + + | [facility] | [address] [facility] | [place] [address] | | | SERVICES, CORE | ZENA [...] [facility] | [address] | [place] [address] | | | SERVICES, CORE | PARK [...] | + + + + + | [facility] | [address] | [place] [address] | | | SERVICES, CORE | ZENA [...] [facility] | [address] | [place] [address] | | | SERVICES, | [address] [...] | + + + + + | [facility] | [address] | [place] [address] | | | SERVICES, CORE | ZENA [...] [facility] | [address] | [place] [address] | | | YOUSIF, CORE | PARK [...] + + + + + | [facility] | [address] | [place] [address] | | | SERVICES, CORE | PARK [...] + + + + + | [facility] | [address] | [place] [address] | | | SERVICES, CORE | ZENA [...] VERDE | [address] | [place], [place] | | | SATNAM POINT OF CARE | [address] | [address] | | | TESTS | | | | + + + + + ED INFORMATION EXCHANGE (08/25/2015 9:25 PM PST) + + + + + + | Component | Value | Ref Range | Performed | Pathologist | | | | | At | Signature | + + + + + + | TRUDY PID | [id number] | | [facility] | | | | [id number] | | MEDICAL | | | | [...] | ---- | | | 08/25/2015 21:25 [facility] | | | Emergency [address]1011. Abdominal Pain 08/24/2015 16:44 | | | [...] vomiting, | | | intractable 08/01/2015 20:43 [facility] | | | Hospital Emergency -Cyclical vomiting, intractable | | | | | | -vomiting abd pain | | | | | | -Hyperglycemia | | | | | | -Abdominal Pain | | | | | | -Generalized abdominal pain | | | | | | -Gastroparesis 07/26/2015 16:13 [facility] | | | [facility] Emergency -vomiting, pain, diabetic | | | | | | -Cyclical vomiting, not | | | intractable | | | -Vomiting | | | 05/30/2015 17:01 [facility] | | | Emergency -Abdominal Pain [...] | | | Location ------ --------- 11 [facility] | | | [facility] 1 [facility] | | | [place] 1 [facility] 1 | | | [facility] 14 Total Note: | | | Visits indicate total known visits. | | | | | | --- | | + + + + + + + + | Performing | Address | City/State/Zipcode | Phone Number | | Organization | | | | + + + + + | [facility] | [address] | [place], [place] | [phone] | | TECHNOLOGIES | [address] | [address] | | + + + + + [...]
--- OUTSIDE RECORDS SUMMARY | ~2020-03-21 | XMS | Encounter Summary ---
Demographics + + + | Address | [address] | | | [place] [address] | + + + | Home Phone [...] Samantha Ramos | ECON | [address] # | | | | | [place] | | | | | [address] | | + + + + + [...] | | | 2012 | anned | [address] [facility] | [phone] | | | | | [address] | | | | | | [place], [place] | | | | | | [address] | | | +--------+ + + + [...]
--- OUTSIDE RECORDS SUMMARY | ~2020-03-21 | XMS | Encounter Summary ---
Demographics + + + | Address | [address] | | | [place] [address] | + + + | Home Phone [...] Samantha Ramos | ECON | [address] # | | | | | [place] | | | | | [address] | | + + + + + Care Team Providers + +------+ + | Care Surgical Oncologist Name | Role | Phone | + [...] | | | | | | | [facility] | | | | | | [facility] and | | | | | | | [facility], | | | | | | | Building [address] | | | | | | | [place], [place] | | | | | | | [address] | | | | | | | Phone: | | | | | | | [phone] | | | | | | | Fax: | | | | | | | [phone] | + +--------+ + + + + Encounter Details +--------+ + + + + | Date | Type | Department | Care Team | Description | +--------+ + + + + | 01/24/ | Telephone-S | [facility] | Beth Mondragon, | Follow-up visit | | 2020 | cheduled | [facility] [address] | ANP [address] [facility] | | | | | Zee Nguyen | [address] | | | | | Mailcode: [place] | [place], [place] | | | | | [facility] and | [address] | | | | | [facility] 2 | [phone] | | | | | [place], [place] | | | | | | [address] | | | | | | [phone] | | | +--------+ + + + [...] 07/2019 PDMP review reveals pt still taking [place] 10 mg tabs, rx #112/28 days 1:33 pm: called [phone] and left VM with clinic phone number. 1:38 pm: called [phone] and left VM w/ phone number. 1:41 pm received message from front end developer that patient wished to cancel appointment today 2/ 2 illness. It will be rescheduled at his convenience. IDRIS Camilo Foregut/ HIPEC CAMP DIRECTOR [facility] Division of GI and General Surgery documented in this encounter Plan of Treatment Not on filedocumented as of this encounter Visit Diagnoses + + | Diagnosis | + + | Diabetic gastroparesis associated with type 1 diabetes mellitus (HCC) - Primary | + + documented in this encounter"
[~2020-03-21 11:38] MED LIST changes: +CARVEDILOL25 MG PO; +FUROSEMIDE80 MG PO; +MELATIN3 MG PO; +SERTRALINE HCL50 MG PO
--- OUTSIDE RECORDS SUMMARY | 2020-03-21 11:44 | XMS ---
PreManage Notification: [facility] COREA Security Presetter Operator Events 1 event(s) in the past 18 months Most recent security events: Elopement at [facility] 04/01/2019 14:50 - Other Details: PATIENT LEFT AMA. CRITERIA MET - 6 ED Visits in 6 Months - [facility] - Has Care Guidelines - History of Sepsis Dx - PDMP - [facility] - 2 Visits in 30 Days CARE PROVIDERS CAMERON MENDEZ Physician Manufacturing Technologist 05/01/2018-Current PHONE: [phone] ANAYA [facility] 02/20/2020-Current PHONE: [phone] Ruma Slater Delivery Mgr/Collar Starcher 12/12/2019-Current PHONE: [phone] BINDU LO Pain Medicine: Interventional Pain 01/07/2020-Current Medicine PHONE: [phone] Guidelines Source: [place] \F\ [place] IPA Guidelines Date: 05/04/2019 Care Coordination: If pt. presents to Ed please call case management at [facility] [phone] Leandra DORMAN or Jenni Westbrook RN Case Manager.\T\nbsp; Care History Medical/Surgical 05/01/2018 [facility] - W referred patient to [facility] case management team. - Further education on medications/chronic pain education is needed. - [facility] case management can be reached at [phone]. E.D. VISIT COUNT ([address] MO.) [address] [place] [address] TOTAL 12 NOTE: Visits indicate total known visits. ED/UCC VISIT TRACKING (12 MO.) 03/21/2020 11:39 [facility] TYPE: Emergency COMPLAINT: - LOW BLOOD SUGAR 03/08/2020 20:14 [facility] TYPE: Emergency COMPLAINT: - UNRESPONSIVE DIAGNOSES: - Type 1 diabetes mellitus with diabetic chronic kidney disease - Personal history of nicotine dependence - Allergy status to narcotic agent status - Chronic kidney disease, unspecified - Other baling machine operator (current) drug therapy - Rheumatoid arthritis, unspecified - Metabolic encephalopathy - Altered mental status, unspecified 02/15/2020 14:59 [facility] TYPE: Emergency COMPLAINT: - ABNORMAL LABS, KIDNEY PROBLEM DIAGNOSES: - Other mcc (current) drug therapy - Hyperkalemia - Essential [...] - Acute kidney failure, unspecified - Other mcc (current) drug therapy - Hyperkalemia - Gastroparesis [...] 1 diabetes mellitus with foot ulcer - auto headlight mechanic (current) use of insulin - Non-pressure chronic ulcer of other part of left foot with un - Other baling machine operator (current) drug therapy - Vomiting, unspecified - Unspecified abdominal pain - Type 1 diabetes mellitus with foot ulcer - Essential (primary) hypertension 08/28/2019 19:21 [facility] TYPE: Emergency COMPLAINT: - SOB 06/22/2019 11:47 [facility] TYPE: Emergency COMPLAINT: - ABD PAIN DIAGNOSES: - 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 - Upper abdominal pain, unspecified - Other baling machine operator (current) drug therapy - Allergy status to narcotic agent status - Nicotine dependence, unspecified, uncomplicated - Gastroparesis - Personal history of urinary calculi - Essential (primary) hypertension 06/12/2019 11:35 [facility] TYPE: Emergency COMPLAINT: - BODY ACHES,CHILLS DIAGNOSES: - group home (current) use of insulin - Allergy status to narcotic agent status - Type 1 diabetes mellitus without complications - Other mcc (current) drug therapy - Essential (primary) hypertension - Nicotine dependence, unspecified, uncomplicated - Upper abdominal pain, unspecified - Personal history of urinary calculi - Lower abdominal pain, unspecified 06/09/2019 11:31 [facility] TYPE: Emergency COMPLAINT: - DEHYDRATION, ABD PAIN DIAGNOSES: - auto headlight mechanic (current) use of insulin - Chest pain, unspecified - Essential (primary) hypertension - Unspecified abdominal pain - Other mcc (current) drug therapy - Type 1 diabetes [...] unspecified, uncomplicated - Vomiting, unspecified - Other baling machine operator (current) drug therapy - Personal history of urinary calculi - Type 1 diabetes mellitus without complications INPATIENT VISIT TRACKING (12 MO.) [facility] DIAGNOSES: - Other specified counseling - Unspecified severe protein-calorie malnutrition - Type 1 diabetes mellitus with diabetic nephropathy - Encounter for palliative care - Essential (primary) hypertension - 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 - Hypoglycemia, unspecified - Epigastric pain - Metabolic encephalopathy - Gastroparesis - Altered Mental Status - Chronic kidney disease, stage 4 (severe) 02/15/2020 22:36 [facility] DIAGNOSES: - Hyperkalemia [...] lower back and pelvis without penet - group home (current) use of insulin - Noninfective gastroenteritis and colitis, unspecified - 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 - Exposure to other specified factors, initial encounter - Gastroparesis - Nicotine dependence, cigarettes, uncomplicated 01/06/2020 02:27 [facility] TYPE: Surgical Services [...] diabetic autonomic (poly)neurop - Anemia, unspecified - group home (current) use of insulin - Other baling machine operator (current) drug therapy - Chronic pain syndrome - Type 1 diabetes mellitus with other specified complication - 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 - Personal history of urinary calculi - Other osteomyelitis, ankle and foot - Acute kidney failure, unspecified - Other baling machine operator (current) drug therapy - auto headlight mechanic (current) use of insulin - Acute kidney failure, unspecified - Personal history of urinary calculi - Anxiety disorder, unspecified - Gastroparesis - Type 1 diabetes mellitus with other specified complication - Other osteomyelitis, ankle and foot - Anemia, unspecified - group home (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 - Nicotine [...] mellitus with diabetic chronic kidney disease - group home (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 - Acquired [...] mellitus with hypoglycemia without coma - Other mcc (current) drug therapy - Allergy status to narcotic agent status - Exposure to other specified factors, initial encounter - 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 - group home (current) use of insulin - Type 1 [...] below knee - Nausea with vomiting, unspecified [email or web address]
--- NOTE | 2020-03-21 17:00 | NUR ---
PT HERE FROM ER, NOT ABLE TO ASSIST AT ALL WITH TRANSFER FROM [facility] TO BED. PT NOT ABLE TO ANSWER QUESTIONS, TEARFUL AND PAINFUL WITH ANY MOVEMENT. PT WOUNDS ON BACK SIDE PHOTOED, AND ALLEVYN DRESSINGS APPLIED. VITALS ARE WNL. IV SITE IS INTACT, NO REDNESS OR SWELLING NOTED, FLUIDS AND FLUSHES INFUSE EASILY. PAULA CARE DONE, CLEAN ASHLEY PAD IN PLACE.
--- NOTE | 2020-03-21 17:30 | NUR ---
IV SITE IS INTACT, FLUIDS ARE INFUSING EASILY, NO REDNESS OR SWELLING NOTED. PT NOT ABLE TO COMMUNICATE WELL, REPORTS "SO MUCH PAIN" GRIMACE AND CRYING NOTED WITH REPOSITIONING IN BED. PT IS COOL TO THE TOUCH. TEMP IS 96.4 TAKEN TEMPORALY. PT NOT ABLE TO ANSWER ANY OTHER QUESTIONS, DOES RESPOND TO VOICE BY OPENING EYES. PT ATTENDS CHANGED, WOUNDS ON BACKSIDE AND HEAL REDRESSED WITH ALLEVYN DRESSINGS AFTER PHOTOS TAKEN.
--- NOTE | 2020-03-21 17:50 | NUR ---
BEAR IGNACIO PLACED UNDER PT SHEETS HIS BODY TEMP IS LOW. WILL CONTINUE TO MONITOR.
--- NOTE | 2020-03-21 18:20 | NUR ---
PT INCONTINENT OF SMALL AMOUT ON GREEN SEMI-LIQUID STOOL, PT EXTREMLY PAINFUL WITH TURNING AND DURING CLEANING OF PAULA AREA. BARRIER CREAM APPLIED TO SKIN, WHICH IS EXCORIATED.
--- NOTE | 2020-03-21 19:30 | NUR ---
bedside report given at this time. Pt resting. IV fluids are infusing. pt resting in bed. no needs noted at this time. urine output on 9 mls for the hour.
--- NOTE | 2020-03-21 20:39 | NUR ---
ASSESSMENT COMPLETED. PT PAINFUL TO MOVEMENT. SLOWLY RESPONSIVE TO YES OR NOT QUESTIONS. URINE OUTPUT 15 MLS FOR THE HOURS. TEMPERATURE 97.0. BEAR HUGGER IN PLACED. PT HAD SMALL INCONTINENT EPISODE, CHANGED WITH TWO PERSON ASSIST. TURNED ON TO RIGHT SIDE PER REQUEST OF PATIENT. IV FLUIDS CONTINUE TO INFUSE.
--- NOTE | 2020-03-21 20:40 | NUR ---
DR LOPEZ CALLED AND UPDATED ON PT LOW URINE OUTPUT FOR LAST TWO HOURS. ORDERS RECIEVED (SEE EMAR). WILL CONTINUE TO URINE OUTPUT MONITOR HOURLY.
--- NOTE | 2020-03-22 00:43 | NUR ---
ASSESSMENT COMPLETED. PERICARE PROVIDED, PT REPOSITIONED IN BED. URINE OUTPUT CONTINUES TO DECLINE. PT PAINFUL WITH MOVEMENT. IV FLUIDS INFUSING. MD UPDATED AT THIS TIME.
--- NOTE | 2020-03-22 00:55 | NUR ---
DR LOPEZ UPDATED ON PATIENT LOW URINE OUTPUT. ORDERS RECIEVED.
--- NOTE | 2020-03-22 01:57 | NUR ---
PT RIGORS HAVE WORSENED. TEMPERATURE AT THIS TIME 100.6 AXILLARY. URINE OUTPUT HAS DECREASED TO 27 MLS FOR THE HOUR. PT CONTINUES TO HAVE INCREASED RESPIRATORY RATE AND WORK OF BREATHING. BELLY BREATHING NOTED.
--- NOTE | 2020-03-22 03:00 | NUR ---
ASSESSMENT COMPLETED AT THIS TIME. ASSISTED PT WITH REPOSITIONING IN STRETCHER, PT STATES HE IS HUNGRY, CRYING WHEN TOLD HE CANNOT EAT. THERAPUETIC COMMUNICATION. URINE OUT REMAINS SCANT. LUNGS SOUNDS DIMINISHED IN BOTH BASES
--- NOTE | 2020-03-22 04:05 | NUR ---
DR LOPEZ UPDATED ON PT'S LOW URINE OUTPUT. NO NEW ORDERS AT THIS TIME.
--- NOTE | 2020-03-22 06:21 | NUR ---
PT SLEPT THROUGH MUCH OF THE NIGHT ON RIGHT SIDE. LEFT SIDE OF FACE HAS INCREASE IN DEPENDENT EDEMA NOTED. SUGGESTED PT TURN ONTO BACK OR RIGHT SIDE, PT DECLINED.
--- NOTE | 2020-03-22 07:30 | NUR ---
PATIENT SHIFT REPORT RECIEVED FROM ENERGY OPERATIONS VICE PRESIDENT RN. PATIENT RESTING IN BED ON HIS RIGHT SIDE AT THIS TIME. PATIENT HAS CALL LIGHT. DENEIS ANY NEEDS AT THIS TIME. WILL CONTINUE TO CLOSELY MONITOR.
--- NOTE | 2020-03-22 09:30 | NUR ---
IN TO DO PATIENTS ASSESSMENT. PATIENT RESTING ON HIS RIGHT SIDE AND REFUSED TO ROLL ONTO HIS BACK. BREATH SOUNDS CLEAR AND DIMINISHED. PATIENT CONTINUES TO HAVE FACIAL EDEMA SINCE ADMIT AND RASH REMAINS SPREAD OVER HIS WHOLE BODY. IN TO START INSULIN GTT PER MD LOPEZ. BLOOD SUGAR TAKEN AND IS 234 STARTED GTT AT 3.4MLS PER SS FLOW SHEET. PER MD LOPEZ ONLY HAVE TO TITRATE Q2 HOURS. WILL RECHECK BLOOD SUGAR AT 1130. PATIENT REMAINS ON BICARB GTT AT THIS TIME. OTHER NEW ORDERS. WILL NEED TO START A NEW IV. WILL CONTINUE TO CLSOELY MONITOR.
[2020-03-22] MEDS ORDERED: FENTANYL1 EAC4 TOP (10:26)
[2020-03-22] MEDS ORDERED: LOPERAMIDE2 MG PO (10:27)
[2020-03-22] MEDS ORDERED: METOPROLOL TART25 MG PO (10:28)
--- NOTE | 2020-03-22 10:45 | NUR ---
TANIYA RN IN TO START IV AND UNABLE TO START ONE. WHILE IN THE ROOM PATIENT HAD A LOOSE BM. CHANGED PATIENTS ATTENDS. PATIENTS RASH APPEARS MORE RED AT THIS TIEM. MD LOPEZ IN TO SEE IT. PATIENTS FACIAL EDEMA ALSO APPEARS SLIGHTLY WORSE THAN BEFORE. CHIDI BRYANT WILL BE IN TO ASSES PATIENT FOR AN IV. PATIENT IS CRYING OUT FOR HIS MOM. SPOKE WITH PATIENT ABOUT PLAN OF CARE. WILL COTNINUE TO CLOSELY MONITOR. CHIDI BRYANT IN ROOM.
--- NOTE | 2020-03-22 11:30 | NUR ---
PATIENT CRYING OUT IN PAIN. PATIENT WONT STATE WHERE. PATIENT STATE "I FUCKING HURT". LOPEZ ON THE PHONE WITH THE ART OBJECTS SUPERVISOR AT THIS TIME TO CONSULT. WILLUPDATE WHEN HE IS OFF THE PHONE.
--- NOTE | 2020-03-22 11:30 | NUR ---
PER MD LOPEZ KEEP INSULIN GTT AT 3.4 AT THIS TIME AND DECREASE MAINTANCE FLUIDS. BLOOD SUGAR CHECKS ARE Q2 HOURS PER MD. HOLD ALBUMIN GTT. TALKING WITH REVA FOR CONSULT. CHIDI BRYANT IN TO PLACE AN IV WITH ULTRASOUND. WILL CONTINUE TO CLSOELY MONITOR.
--- NOTE | 2020-03-22 11:45 | NUR ---
NEW ORDERES FOR MORPHIN 2MG ONCE. PATIENT AGREEABLE TO PLAN. UPDATED PATIENT THAT WE MAY TRANSFER HIM TO [facility] TO HAVE A SPEACIALIST INVOLVED WITH HIS CARE. WILL CONTINUE TO CLSOELY MONITOR.
--- NOTE | 2020-03-22 12:00 | NUR ---
MD LOPEZ OKAYED PATIENT TO HAVE SIPS OF WATER. PATIENT HAS NEW IV PLACED. GAVE PATIENT MORPHINE FOR GENERALIZED PAIN. PATIENT SCREAMING OUT IN PAIN. BENEDRYL WAS GIVEN FOR WORSENING OF HIS RASH HE CAME TO THE HOSPITAL WITH. MD LOPEZ AWARE. WILL CONTINUE TO CLOSELY MONITOR.
--- NOTE | 2020-03-22 12:36 | NUR ---
PATIENT IS LESS PAINFUL AFTER PAIN MEDICATIONS GIVEN. PER MD MAY GIVE JELLO. ONCOLOGY NURSE AT THE BEDSIDE WITH PATIENT. WILL CONTINUE TO CLOSELY MONITOR.
--- NOTE | 2020-03-22 13:10 | NUR ---
EMS STAFF ARRIVED TO TRANSPORT PATIENT TO [facility]. REPORT GIVEN TO BULL. ALL QUESTIONS ANSWERED. BLOOD SUGAR CHECKED PRIOR TO DISCHARGE AND WAS 175. ALL BELONGINGS SENT WITH PATIENT. WILL CALL [facility] FOR REPORT.
--- NOTE | 2020-03-22 13:35 | NUR ---
REPORT CALLED TO TOM BRYANT AT [facility]. REPORT GIVEN. UPDATED THAT PATIENT LEFT HERE WITH A BICARB GTT AND INSULIN GTT. PATIENTS BLOOD SUGAR 175 ON DISCHARGE. REPORT THAT PATIENT HAS A RASH OVER HIS WHOEL BODY, FACIAL EDEMA WITH NO THROAT OR TONGUE SWEELING NOTED. UPDATED ON MULTIPLE BED SORES AND HIS COGNITION. ALL QUESTIONS ANSWERED AND DENIES ANY OTHER NEEDS AT THIS TIME.
== END 2020-03-22 13:00 | disposition short-term general hospital (02) ==
LOC: ED 11:38 → CCU 11:40
PROVIDERS: ADMIT Internal Medicine
DX: E10.649 Type 1 diabetes mellitus with hypoglycemia without coma (principal); N17.9 Acute kidney failure, unspecified; G93.41 Metabolic encephalopathy; I12.9 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e 4 chronic kidney disease, or unspecified chronic kidney disease; E10.22 Type 1 diabetes mellitus with diabetic chronic kidney disease; N18.4 Chronic kidney disease, stage 4 (severe); D63.1 Anemia in chronic kidney disease; E10.42 Type 1 diabetes mellitus with diabetic polyneuropathy; E10.43 Type 1 diabetes mellitus with diabetic autonomic (poly)neuropathy; K31.84 Gastroparesis; E10.621 Type 1 diabetes mellitus with foot ulcer; L97.529 Non-pressure chronic ulcer of other part of left foot with unspecified severity; L89.159 Pressure ulcer of sacral region, unspecified stage; R21 Rash and other nonspecific skin eruption; K52.9 Noninfective gastroenteritis and colitis, unspecified; G89.4 Chronic pain syndrome; F11.20 Opioid dependence, uncomplicated; Z88.5 Allergy status to narcotic agent; Z79.899 Other long term (current) drug therapy
CPT/HCPCS: 36415; 51702; 80048; 80053; 81001; 85025; 87088; 96361; 96365; 96366; 96372; 96375; 99285-25; C9803; G0378; J0696; J1200; J1650; J1815; J2270; J7040; J7042; J7070; U0002